=== PATIENT | male | born 1950 | race Caucasian/White ===

== ENCOUNTER 2017-09-29 02:00 | Emergency (ER) | payer MEDICARE, OTHER, SELFPAY ==
[2017-09-29 02:07] VITALS: BP 132/66; PULSE 65; RESP 20; TEMP 37; O2SAT 98
[2017-09-29 02:19] VITALS: RESP 20
--- NOTE | 2017-09-29 02:23 | ED.GENADUL ---
Disposition Clinical Impression: Sting from hornet, wasp, or bee Disposition: HOME Condition: Good Instructions: Insect Bite or Sting (ED), Diphenhydramine (By mouth) Additional Instructions: You may use diphenhydramine 1-2 tablets every 6 hours as needed for itching. Ice will help with swelling. Tylenol if needed for discomfort. Anti-itch topical is fine to use as well. Watch for signs of infection which will include increasing pain, redness, warmth. Also watch for signs of systemic allergic reaction but that is unlikely to occur at this time. Follow-up with primary care next week if not better. Return to ED if worse. Referrals: Frederick Meade [Primary Care Provider] - Medical Decision Making - Medical Decision Making Patient with localized allergic reaction to bee stings. There is no evidence of systemic involvement. He does not need epinephrine or steroids in my opinion at this point. Benadryl, topical anti-itch, ice, Tylenol if needed should be enough. Symptoms should resolve over the next 1 or 2 days. Watch for evidence of infection which we discussed. He is given 25 of Benadryl here and 25 to go home with which he may take an one hour if there has been no relief with the first dose. History of Present Illness - General Chief complaint: GenMedical Stated complaint: BEE STINGS Time Seen by Provider: 09/29/17 02:22 Source: patient Mode of arrival: ambulatory Limitations: no limitations - History of Present Illness Initial comments: Patient presents with multiple itchy bee stings after being attacked by ground hornets approximately 14 hours ago. Patient was mowing his lawn when he hit a ground hornet nest. He was stung multiple times in the legs and back. Initially they were burning and painful. They subsequently become itchy and he has not been able to sleep. He has no rash per se. He does have local redness and swelling in the areas of the stings especially on the back. He has no respiratory difficulty. He has no GI symptoms. He does not feel lightheaded or dizzy. - Related Data Aspirin 81 mg PO DAILY tab-cap 06/24/12 Blood-Glucose Meter [Onetouch Ultramini] 1 each MC DAILY #1 kit 07/31/16 Lisinopril/Hydrochlorothiazide [Lisinopril-Hctz 20-12.5 mg Tab] 1 each PO DAILY #90 tab-cap 04/19/17 Colchicine 0.6 mg PO Q12H PRN #20 tab 06/15/17 Allopurinol 200 mg PO DAILY #180 tab-cap 07/06/17 Lancets [Onetouch Suresoft] 1 each ID DAILY #100 each 07/06/17 Onetouch Ultra Test Strips 1 strip MC D #100 strip 07/06/17 DiphenhydrAMINE [Benadryl] 25 - 50 mg PO Q6H PRN cap 09/29/17 Allergies Allergy/AdvReac Type Severity Reaction Status Date / Time No Known Allergies Allergy Unverified 09/29/17 02:12 Review of Systems Constitutional: denies: chills, fever Respiratory: denies: shortness of breath, wheezing Cardiovascular: denies: chest pain, syncope Gastrointestinal: denies: abdominal pain, nausea, vomiting, diarrhea Musculoskeletal: denies: arthralgia Skin: other (stings/welts) Neurological: denies: headache, weakness, numbness Past Medical History - Past Medical History Medical history: cancer (prostate), diabetes, GERD, hypertension Anemia, gout, hiatel hernia, diverticulosis Surgical history: appendectomy, other (radiation, cataract) - Social History Smoking status: former smoker Alcohol use: occasionally Drug use: none General Exam - General Limitations: no limitations General appearance: alert, in no apparent distress - Head Head exam: Present: atraumatic, normocephalic - ENT ENT exam: Present: normal orophraynx - Respiratory Respiratory exam: Present: normal lung sounds bilaterally. Absent: wheezes - Cardiovascular Cardiovascular Exam: Present: regular rate, normal rhythm, normal heart sounds - Neurological Exam Neurological exam: Present: alert, oriented X3, CN II-XII intact. Absent: motor sensory deficit - Skin Skin exam: Present: warm, dry, intact, other (Areas of erythema and swelling with some local edema on the back and legs in relation to the stings. Couple of areas on the right back are 3-4 cm in size. ) Course Vital Signs - 24 hr 09/29/17 09/29/17 02:07 02:19 Temperature 98.6 F Pulse 65 Respiratory 20 20 Rate Blood Pressure 132/66 Pulse Oximetry 98
[2017-09-29] MEDS: diphenhydrAMINE 25 MG CAP PO ×2 (02:39→02:40)
== END 2017-09-29 02:50 | disposition home or self-care (01) ==
PROVIDERS: Emergency Provider Emergency Medicine; PCP Family Medicine
DX: T63.451A Toxic effect of venom of hornets, accidental (unintentional), initial encounter (principal); L29.8 Other pruritus; L53.9 Erythematous condition, unspecified; R60.0 Localized edema; E11.9 Type 2 diabetes mellitus without complications; I10 Essential (primary) hypertension
CPT/HCPCS: 99283 ×2

== ENCOUNTER 2017-11-22 01:48 | Outpatient (CLI) | payer MEDICARE, OTHER, SELFPAY ==
[2017-11-23 10:05] LABS: PSA, Diagnostic <0.1 ng/ml (0-4.5)
[2017-11-24 17:01] LABS: Testosterone, Total 207 ng/dL (240-950)
== END 2017-11-22 02:08 ==
PROVIDERS: PCP Family Medicine; Visit Provider Nurse Practitioner
DX: C61 Malignant neoplasm of prostate (principal)
CPT/HCPCS: 36415; 84403; 84153

== ENCOUNTER 2018-01-09 01:38 | Outpatient (CLI) | payer MEDICARE, OTHER, SELFPAY ==
[2018-01-09 08:52] LABS: Hemoglobin A1C 6.2 % (4.5-6.2)
[2018-01-09 09:16] LABS: Uric Acid 5.4 mg/dL (3.5-7.2)
== END 2018-01-09 01:58 ==
PROVIDERS: PCP Family Medicine; Visit Provider Family Medicine
DX: E11.9 Type 2 diabetes mellitus without complications (principal); E79.0 Hyperuricemia without signs of inflammatory arthritis and tophaceous disease
CPT/HCPCS: 36415; 83036; 84550

== ENCOUNTER 2018-07-10 10:00 | Outpatient (CLI) | payer MEDICARE, OTHER, SELFPAY ==
[2018-07-10 10:33] LABS: HCT 26.6 % (40.0-50.0); HGB 7.5 g/dL (13.5-17.5); Mean Corp. HGB Concentration 28.2 g/dL (32.0-36.0); Mean Corpuscular Hemoglobin 21.7 pg (27.0-33.0); Mean Corpuscular Volume 76.9 fL (80-95); Mean Platelet Volume 9.6 fL (8.0-11.0); Platelet Count 358 x1000/uL (130-400); RBC 3.46 m/cumm (4.50-6.00); White Blood Cell Count 6.75 k/cumm (4.4-10.8)
[2018-07-10 10:36] LABS: Hemoglobin A1C 7.3 % (4.5-6.2)
[2018-07-10 11:03] LABS: CREATININE 1.19 mg/dL (0.70-1.30); Potassium 3.9 mmol/L (3.5-5.1)
[2018-07-10 15:26] LABS: Uric Acid 5.7 mg/dL (3.5-7.2)
== END 2018-07-10 10:20 ==
PROVIDERS: PCP Family Medicine; Visit Provider Family Medicine
DX: E11.9 Type 2 diabetes mellitus without complications (principal); D64.9 Anemia, unspecified; I10 Essential (primary) hypertension; E79.0 Hyperuricemia without signs of inflammatory arthritis and tophaceous disease
CPT/HCPCS: 85027; 82565; 83036; 84132; 84550

== ENCOUNTER 2018-07-16 09:14 | Outpatient (CLI) | payer MEDICARE, OTHER, SELFPAY ==
[2018-07-16 11:08] LABS: HCT 28.5 % (40.0-50.0); Mean Corp. HGB Concentration 28.1 g/dL (32.0-36.0); Mean Corpuscular Hemoglobin 21.6 pg (27.0-33.0); Mean Corpuscular Volume 76.8 fL (80-95); Mean Platelet Volume 10.2 fL (8.0-11.0); Platelet Count 346 x1000/uL (130-400); RBC 3.71 m/cumm (4.50-6.00); RBC Distribution Width 17.5 % (11.8-14.1)
[2018-07-16 11:15] LABS: Iron 22 ug/dL (50-175); Total Iron Binding Capacity 356 ug/dL (250-450)
[2018-07-16 11:36] LABS: Ferritin 7 ng/mL (8-388)
[2018-07-16 11:49] LABS: Uric Acid 5.5 mg/dL (3.5-7.2)
== END 2018-07-16 09:34 ==
PROVIDERS: PCP Family Medicine; Visit Provider Family Medicine
DX: D64.9 Anemia, unspecified (principal); I10 Essential (primary) hypertension; M10.9 Gout, unspecified
CPT/HCPCS: 36415; 85027; 82728; 83540; 83550; 84550

== ENCOUNTER 2018-08-14 01:17 | Outpatient (CLI) | payer MEDICARE, OTHER, SELFPAY ==
[2018-08-15 12:19] LABS: PSA, Diagnostic <0.1 ng/ml (0-6.5)
[2018-08-16 13:59] LABS: Testosterone, Total 248 ng/dL (240-950)
== END 2018-08-14 01:37 ==
PROVIDERS: PCP Family Medicine; Visit Provider Nurse Practitioner
DX: C61 Malignant neoplasm of prostate (principal)
CPT/HCPCS: 36415; 84403; 84153

== ENCOUNTER 2018-09-17 01:34 | Outpatient (CLI) | payer MEDICARE, OTHER, SELFPAY ==
[2018-09-17 08:41] LABS: HCT 34.7 % (40.0-50.0); Mean Corp. HGB Concentration 31.7 g/dL (32.0-36.0); Mean Corpuscular Hemoglobin 27.2 pg (27.0-33.0); Mean Corpuscular Volume 85.7 fL (80-95); Mean Platelet Volume 9.6 fL (8.0-11.0); Platelet Count 274 x1000/uL (130-400); RBC 4.05 m/cumm (4.50-6.00); RBC Distribution Width 22.7 % (11.8-14.1); White Blood Cell Count 8.21 k/cumm (4.4-10.8)
[2018-09-17 10:06] LABS: Iron 42 ug/dL (50-175)
[2018-09-17 10:17] LABS: Ferritin 33 ng/mL (8-388)
== END 2018-09-17 01:54 ==
PROVIDERS: PCP Family Medicine; Visit Provider Family Medicine
DX: D64.9 Anemia, unspecified (principal)
CPT/HCPCS: 36415; 85027; 82728; 83540

== ENCOUNTER 2019-02-28 08:10 | Outpatient (CLI) | payer MEDICARE, OTHER, SELFPAY ==
[2019-02-28 09:48] LABS: Hemoglobin A1C 6.6 % (3.8-5.6)
[2019-02-28 10:12] LABS: Iron 58 ug/dL (65-175)
[2019-02-28 10:27] LABS: Ferritin 38 ng/mL (26-388)
[2019-02-28 13:34] LABS: HCT 37.6 % (40.0-50.0); HGB 12.4 g/dL (13.5-17.5); Mean Corpuscular Hemoglobin 31.6 pg (27.0-33.0); Mean Corpuscular Volume 95.9 fL (80-95); Mean Platelet Volume 10.5 fL (8.0-11.0); Platelet Count 285 x1000/uL (130-400); RBC 3.92 m/cumm (4.50-6.00); RBC Distribution Width 13.7 % (11.8-14.1); White Blood Cell Count 7.22 k/cumm (4.4-10.8)
== END 2019-02-28 08:30 ==
PROVIDERS: PCP Family Medicine; Visit Provider Family Medicine
DX: D64.9 Anemia, unspecified (principal); R73.9 Hyperglycemia, unspecified
CPT/HCPCS: 36415; 85027; 82728; 83036; 83540

== ENCOUNTER 2019-03-10 01:13 | Outpatient (CLI) | payer MEDICARE, OTHER, SELFPAY ==
[2019-03-10 09:18] LABS: HCT 37.9 % (40.0-50.0); HGB 12.4 g/dL (13.5-17.5); Mean Corp. HGB Concentration 32.7 g/dL (32.0-36.0); Mean Corpuscular Hemoglobin 31.2 pg (27.0-33.0); Mean Corpuscular Volume 95.5 fL (80-95); Mean Platelet Volume 9.5 fL (8.0-11.0); Platelet Count 265 x1000/uL (130-400); RBC 3.97 m/cumm (4.50-6.00); RBC Distribution Width 13.5 % (11.8-14.1); White Blood Cell Count 6.41 k/cumm (4.4-10.8)
[2019-03-10 10:00] LABS: Calculated LDL 97 mg/dL; Cholesterol 149 mg/dL (<200); HDL Cholesterol 33 mg/dL (40-60); Triglyceride 97 mg/dL (<150)
[2019-03-11 11:00] LABS: PSA, Diagnostic <0.1 ng/mL (0.0-6.5)
[2019-03-12 06:14] LABS: Testosterone, Total 267 ng/dL (240-950)
== END 2019-03-10 01:33 ==
PROVIDERS: PCP Family Medicine; Visit Provider Nurse Practitioner
DX: C61 Malignant neoplasm of prostate (principal); D64.9 Anemia, unspecified; E78.5 Hyperlipidemia, unspecified
CPT/HCPCS: 36415; 80061; 84403; 85027; 84153

== ENCOUNTER 2019-09-02 04:55 | Outpatient (CLI) | payer MEDICARE, OTHER, SELFPAY ==
[2019-09-02 10:45] LABS: HCT 36.8 % (40.0-50.0); HGB 12.4 g/dL (13.5-17.5); Mean Corp. HGB Concentration 33.7 g/dL (32.0-36.0); Mean Corpuscular Hemoglobin 31.2 pg (27.0-33.0); Mean Corpuscular Volume 92.7 fL (80-95); Mean Platelet Volume 9.3 fL (8.0-11.0); Platelet Count 269 x1000/uL (130-400); RBC 3.97 m/cumm (4.50-6.00); RBC Distribution Width 13.7 % (11.8-14.1); White Blood Cell Count 7.07 k/cumm (4.4-10.8)
[2019-09-02 11:07] LABS: Hemoglobin A1C 6.5 % (3.8-5.6)
[2019-09-02 11:46] LABS: CREATININE 1.12 mg/dL (0.70-1.30); Uric Acid 6.2 mg/dL (3.5-7.2)
[2019-09-02 13:11] LABS: Ferritin 62 ng/mL (26-388)
== END 2019-09-02 05:15 ==
PROVIDERS: PCP Family Medicine; Visit Provider Family Medicine
DX: I10 Essential (primary) hypertension (principal); R73.9 Hyperglycemia, unspecified; D64.9 Anemia, unspecified; M10.9 Gout, unspecified
CPT/HCPCS: 36415; 85027; 82565; 82728; 83036; 84132; 84550

== ENCOUNTER 2020-03-05 02:23 | Outpatient (CLI) | payer MEDICARE, SELFPAY ==
[2020-03-05 08:21] LABS: Hemoglobin A1C 6.7 % (<5.7)
[2020-03-05 10:50] LABS: Calculated LDL 99 mg/dL (<100); Cholesterol 155 mg/dL (<200); Ferritin 52 ng/mL (26-388); HDL Cholesterol 33 mg/dL (40-60); Triglyceride 116 mg/dL (<150)
[2020-03-05 10:51] LABS: Iron 77 ug/dL (65-175)
[2020-03-06 00:04] LABS: PSA, Screening <0.1 ng/mL (0.0-6.5)
== END 2020-03-05 02:43 ==
PROVIDERS: PCP Family Medicine; Visit Provider Family Medicine
DX: D64.9 Anemia, unspecified (principal); E78.5 Hyperlipidemia, unspecified; E73.9 Lactose intolerance, unspecified; Z12.5 Encounter for screening for malignant neoplasm of prostate
CPT/HCPCS: 36415; 80061; 84153; 82728; 83036; 83540

== ENCOUNTER 2020-09-03 03:40 | Outpatient (CLI) | payer MEDICARE, SELFPAY ==
[2020-09-03 09:32] LABS: Hemoglobin A1C 6.8 % (<5.7)
[2020-09-03 18:03] LABS: Iron 95 ug/dL (65-175)
== END 2020-09-03 03:41 | disposition home or self-care (01) ==
LOC: LBO 03:41
PROVIDERS: PCP Family Medicine; Visit Provider Family Medicine
DX: D64.9 Anemia, unspecified (principal); R73.9 Hyperglycemia, unspecified
CPT/HCPCS: 36415; 83036; 83540

== ENCOUNTER 2021-03-11 01:59 | Outpatient (CLI) | payer MEDICARE, SELFPAY ==
[2021-03-11 12:43] LABS: HCT 35.5 % (40.0-50.0); HGB 11.6 g/dL (13.5-17.5); MCHC 32.7 % (32.0-36.0); MCV 94.9 fL (80-95); MPV 9.6 fL (8.0-11.0); Platelet Count 242 10^3/uL (130-400); RBC 3.74 10^6/uL (4.36-5.78); RDW 13.4 % (11.8-14.1); RDW-SD 46.7 fL; WBC 8.11 10^3/uL (4.4-10.8)
[2021-03-11 13:05] LABS: Hemoglobin A1C 7.1 % (<5.7)
[2021-03-11 13:39] LABS: Calculated LDL 87 mg/dL (<100); Cholesterol 165 mg/dL (<200); HDL Cholesterol 32 mg/dL (40-60); Triglyceride 233 mg/dL (<150)
[2021-03-11 21:57] LABS: PSA, Diagnostic <0.1 ng/mL (0.0-6.5)
[2021-03-16 11:27] LABS: Lab Add On Test DONE
[2021-03-16 11:41] LABS: CREATININE 1.2 mg/dL (0.70-1.30); Estimated GFR 59.51 (mL/min/1.73m2); Potassium 3.8 mmol/L (3.5-5.1)
== END 2021-03-11 02:00 | disposition home or self-care (01) ==
LOC: LBO 01:59
PROVIDERS: PCP Family Medicine; Visit Provider Family Medicine
DX: I10 Essential (primary) hypertension (principal); E78.5 Hyperlipidemia, unspecified; R73.9 Hyperglycemia, unspecified; R53.83 Other fatigue; C61 Malignant neoplasm of prostate
CPT/HCPCS: 36415; 80061; 85027; 82565; 83036; 84132; 84153

== ENCOUNTER 2021-09-07 11:09 | Outpatient (REF) | payer MEDICARE, SELFPAY ==
[2021-09-07 13:42] LABS: COMMENT (LAB VIEW ONLY) 53.99 mg/dL; Microalb ug/mg Crea 8.1 ug/mg Cr
== END 2021-09-07 11:10 | disposition home or self-care (01) ==
LOC: LBN 11:09
PROVIDERS: PCP Family Medicine; Visit Provider Family Medicine
DX: E11.9 Type 2 diabetes mellitus without complications (principal)
CPT/HCPCS: 82043; 82570

== ENCOUNTER 2022-03-20 02:53 | Outpatient (CLI) | payer MEDICARE, SELFPAY ==
[2022-03-20 13:00] LABS: CREATININE 1.3 mg/dL (0.70-1.30); Calculated LDL 85 mg/dL (<100); Cholesterol 151 mg/dL (<200); Estimated GFR 58.01 (mL/min/1.73m2); HDL Cholesterol 37 mg/dL (40-60); Potassium 3.6 mmol/L (3.5-5.1); Triglyceride 145 mg/dL (<150)
== END 2022-03-20 02:54 | disposition home or self-care (01) ==
LOC: LOS 02:53
PROVIDERS: PCP Family Medicine; Visit Provider Family Medicine
DX: E78.5 Hyperlipidemia, unspecified (principal); I10 Essential (primary) hypertension
CPT/HCPCS: 36415; 80061; 82565; 84132

== ENCOUNTER 2022-03-22 09:41 | Outpatient (CLI) | payer MEDICARE, SELFPAY ==
[2022-03-22 12:34] LABS: HCT 38.6 % (40.0-50.0); HGB 12.4 g/dL (13.5-17.5); MCH 30.8 pg (27.0-33.0); MCHC 32.1 % (32.0-36.0); MCV 96 fL (80-95); MPV 10.7 fL (8.0-11.0); Platelet Count 243 10^3/uL (130-400); RBC 4.02 10^6/uL (4.36-5.78); RDW 14.3 % (11.8-14.1); RDW-SD 50.5 fL; WBC 7.71 10^3/uL (4.4-10.8)
[2022-03-22 23:08] LABS: PSA, Diagnostic <0.1 ng/mL (<=6.5)
== END 2022-03-22 09:42 | disposition home or self-care (01) ==
LOC: LOS 09:41
PROVIDERS: PCP Family Medicine; Referring Provider Family Medicine; Visit Provider Family Medicine
DX: R53.83 Other fatigue (principal); C61 Malignant neoplasm of prostate
CPT/HCPCS: 36415; 85027; 84153

== ENCOUNTER 2022-03-22 13:45 | Outpatient (REF) | payer MEDICARE, SELFPAY ==
[2022-03-22 13:38] LABS: COMMENT (LAB VIEW ONLY) 37.91 mg/dL; Microalb ug/mg Crea 4.7 ug/mg Cr
== END 2022-03-22 13:46 | disposition home or self-care (01) ==
LOC: LBN 13:45
PROVIDERS: PCP Family Medicine; Visit Provider Family Medicine
DX: E11.9 Type 2 diabetes mellitus without complications (principal)
CPT/HCPCS: 82043; 82570

== ENCOUNTER 2022-09-21 18:16 | Emergency (ER) | payer MEDICARE, SELFPAY ==
[2022-09-21] VITALS (42 sets, daily range): BP systolic 129–165; BP diastolic 59–92; PULSE 70–92; RESP 7–22; TEMP 36.9; O2SAT 92–97
--- NOTE | 2022-09-21 18:30 | DI.CT_ITS ---
Exam(s) CT NECK W EXAM: CT NECK W INDICATION: facial/oral swelling. COMPARISON: CT CT HEAD WO from 09/21/2022 TECHNIQUE: FINDINGS: VISUALIZED PARANASAL SINUSES: Unremarkable. NASOPHARYNX: Relatively symmetrical swelling of the tissues. ORODENTAL: Asymmetric appearance of both sides of the tongue, right denser than left. Lingual tonsil s also enlarged bilaterally OROPHARYNX: Enlarged tonsils. Abnormal swelling of the retropharyngeal tissues is evident. See belo w. There is tissue swelling in the vallecular by. Free edge of the epiglottis appears unremarkable. HYPOPHARYNX/RETROPHARYNGEAL: Abnormal. There is prominent swelling of the retropharyngeal space and there is relatively hypodense ovoid predominately right but extending slightly across the midline per ipherally enhancing structure which measures 4 cm wide by 1.5 cm maximum AP by 3 cm cephalocaudal, no t containing gas but with surrounding retropharyngeal edema.. Edema extends down to the lower C5 lev el as well as above this C2 level abscess or mass. Infection versus malignancy. No radiopaque forei gn body evident in this region.. The aryepiglottic folds appear unremarkable as do the vocal cords VOCAL CORDS: Unremarkable. Also the subglottic airway appears unremarkable. THYROID GLAND: Abnormal. There nodules in the right lobe, 1 being taller than wider in the transvers e plane measuring 2.2 cm AP x 1.5 cm wide. Should undergo ultrasound. SALIVARY GLANDS: Multiple enlarged lymph nodes noted in both parotid glands. Submandibular glands ap pear unremarkable. LYMPH NODES: There is prominent adenopathy throughout both sides of the neck and including the suprac lavicular regions bilaterally. On the right side of the neck medial to the posterior aspect of the s ternocleidomastoid muscle and just behind the largest abnormal lymph node (which measures 2.3 by 2.5 cm) there are multiple centrally hypodense densities which have similar appearance of the retropharyn geal abnormality and either represent extension of abscess or neoplasm. One of these which measures 1.3 cm AP x 1 cm wide is located quite posteriorly on the right side of the neck. OTHER: Heavily calcified plaque noted at the carotid bifurcations and proximal internal carotid arter ies bilaterally. Estimate moderate stenosis at these levels. No evidence of jugular vein thrombosis . VISUALIZED LUNG APICES: No significant findings. IMPRESSION: 1. As described above there is a large predominately right-sided peripherally enhancing mass or absc ess in the retropharyngeal space with abundant surrounding edema down to C5 level and with multiple a bnormally enlarged lymph nodes on both sides the neck, some of these being centrally hypodense and morillo ving similar appearance to the abnormal retropharyngeal finding. Main differential diagnosis here is neoplasm versus abscess. 2. There are enlarged bilateral lingual tonsils also noted as well as significant asymmetry in the a ppearance of both sides of the tongue. 3. 2.2 x 1.5 cm right thyroid lobe nodule which is taller than wider in the transverse plane and the refore should also undergo investigation with ultrasound. 4. ENT consultation recommended. Study 1st read by [facility]. Discussed by myself with ER staff 09/22/2022 9:10 a.m.. Patient was apparently transfered last night to outside institution. RADIATION DOSE DELIVERED: Total DLP DATA REPOSITORY: All CT scans at this facility are submitted to the National Radiology Data Registry (NRDR) Dose Index Registry (DIR) with the [employer] ([employer]). RADIATION OPTIMIZATION: All CT scans at this facility use at least one of these dose optimization te chniques: automated exposure control; mA and/or kV adjustment per patient size (includes targeted exa ms where dose is matched to clinical indication); or iterative reconstruction.
--- NOTE | 2022-09-21 18:41 | DI.CT_ITS ---
Exam(s) CT HEAD WO EXAM: CT HEAD WO CLINICAL HISTORY: tongue swelling. TECHNIQUE: Imaging Protocol: Axial computed tomography images with coronal and sagittal reformatted images were created and reviewed COMPARISON: CT HEAD WITHOUT CONTRAST from 04/19/2015 FINDINGS: There are no skull fractures. There is no fluid in the visualized paranasal sinuses. Incidentally noted is a in posterior right scalp lipoma measuring 2.5 cm wide 1.3 cm AP by 2.5 cm cep halocaudal, this over the right occipital area. There is no evidence of intracranial hemorrhage, mass effect, or shift of midline structures. There are no extra-axial fluid collections. The ventricles are not enlarged or shifted and there is no blo od within the ventricular system nor within the basal cisterns. IMPRESSION: No acute intracranial findings on this noninfused CT scan of the brain. Right occipital area scalp lipoma with measurements as above. RADIATION DOSE DELIVERED: 943.56 mGy.cm Total DLP DATA REPOSITORY: All CT scans at this facility are submitted to the National Radiology Data Registry (NRDR) Dose Index Registry (DIR) with the [employer] ([employer]). RADIATION OPTIMIZATION: All CT scans at this facility use at least one of these dose optimization te chniques: automated exposure control; mA and/or kV adjustment per patient size (includes targeted exa ms where dose is matched to clinical indication); or iterative reconstruction.
--- NOTE | 2022-09-21 18:44 | W.ED.GENAD ---
Discharge Plan Discharge Details Chief Complaint: GenMedical Primary Care Provider: Frederick Meade ED Provider: Lee Ann Lucero Home Meds and New Rx's Prescriptions: No Action All Day Allergy (cetirizine) 10 mg capsule 10 mg PO DAILY PRN ferrous sulfate [Feosol] 325 mg (65 mg iron) tablet See Rx Instructions PO DAILY Rx Instructions: 650 mg PO daily; lisinopril-hydrochlorothiazide 20-12.5 mg tablet 1 tab PO DAILY Qty: 90 3RF aspirin [Aspirin Low-Strength] 81 MG tablet,chewable 81 mg PO DAILY (DME) blood-glucose meter [[employer] UltraMini] 1 EACH kit 1 ea Miscellaneous DAILY Qty: 1 allopurinol 100 mg tablet 200 mg PO DAILY Qty: 180 3RF (DME) blood sugar diagnostic Strip See Dose Instructions .ROUTE .MEDSUPPLY Qty: 100 3RF Dose Instruction: As directed Rx Instructions: test daily (DME) lancets Misc 1 ea Intradermal DAILY Qty: 100 3RF Rx Instructions: test daily Medical Decision Making This is a 72-year-old male who is on lisinopril for hypertension who presents with intermittent swelling of the tongue cheek and throat for 1 week. He has been seen twice this week initially he was seen and told that he has a URI. His symptoms have waxed and waned until today when they got significantly worse with a notable change in his phonation. My plan will be to treat him with diphenhydramine and Solu-Medrol and Pepcid although if this is lisinopril induced that will not be very effective. If it is worse we will consider giving FFP. I will obtain a CT of the head face and neck to rule out abscess but given that he is edentulous and there is no evidence of dental infection this is unlikely to be the etiology. He will most likely require admission but we will wait for the CT result. He will definitely need admission for observation and further evaluation. After consultation with Dr. Ramírez I have prescribed Unasyn Differential Diagnosis Differential Diagnosis: Lisinopril angioedema. Soft tissue infection, carcinoma, Medical Records Medical records narrative: Distant history of prostate cancer with undetectable PSA. We will send a secondary PSA Imaging Data Radiologic Study: Imaging: CT Scan (Noncontrast) Radiologist's impression: No acute intracranial abnormality. Radiologic Study #2: Radiologist's impression: Multiple enlarged lymph nodes as described largest in the retropharyngeal space. Necrotic malignancy favored over suppurative lymph nodes. Retropharyngeal edema versus developing collection at C3-C5. Enlarged lingual tonsils greater on the left. Underlying lesion not excluded.. 2 cm hypodense nodule of the right lobe of the thyroid. Comparison to prior images would be helpful. Otherwise nonemergent sonography of the thyroid gland may be helpful if not already performed. Lab Data Lab results reviewed: Yes I reviewed the patient's lab results. HPI General Date/Time Provider Initiated Documentation: 09/21/22 18:25. Information obtained by: family (). History of Present Illness described as moderate, Quality is described as aching, HPI Narrative: The patient is a 72-year-old male on lisinopril for hypertension, who presents with tongue and throat swelling. The patient has had intermittent symptoms which have been not as severe over the past week. He was seen earlier in the week and was told he had a URI. Today the symptoms got worse including swelling of his tongue and throat with change of his voice. He went to urgent care and was referred here for evaluation of a possible abscess. He denies any fevers or chills. He wears dentures. He denies any previous history of allergic reactions or angioedema. He does note a change in his voice. He states that his symptoms have come and gone over the past week. Today his symptoms were the worst. He states he has shortness of breath when talking but has been able to eat and drink and has been able to handle secretions. He denies any recent dental procedures swelling of the gums. He wears dentures, both the upper and lower. He is also complaining some mild pain in the right posterior neck. Most of the symptoms are right-sided. They have been coming and going over the past week and were today. Related Data Home Medications Medication Instructions Recorded Confirmed aspirin 81 mg chewable tablet 81 mg PO DAILY 06/24/12 09/21/22 (Aspirin Low-Strength) blood-glucose meter ([employer] ##1 07/31/16 09/15/22 UltraMini kit) cetirizine 10 mg capsule (All Day 10 mg PO DAILY PRN 01/16/18 09/21/22 Allergy (cetirizine)) ferrous sulfate 325 mg (65 mg See Rx Instructions PO DAILY 03/12/20 09/21/22 iron) tablet (Feosol) lisinopril 20 1 tab PO DAILY #90 tab-caps 03/22/22 09/21/22 mg-hydrochlorothiazide 12.5 mg tablet allopurinol 100 mg tablet 200 mg PO DAILY #180 tab-caps 06/14/22 09/21/22 blood sugar diagnostic #100 ea 07/10/22 09/15/22 lancets #100 ea 07/10/22 09/15/22 Previous Rx's Medication Instructions Recorded lisinopril 20 1 tab PO DAILY #90 tab-caps 03/22/22 mg-hydrochlorothiazide 12.5 mg tablet allopurinol 100 mg tablet 200 mg PO DAILY #180 tab-caps 06/14/22 blood sugar diagnostic #100 ea 07/10/22 lancets #100 ea 07/10/22 Allergies Allergy/AdvReac Type Severity Reaction Status Date / Time No Known Allergies Allergy Verified 09/21/22 18:22 General Stated Complaint: GenMedical BENJI: 3 Review of Systems Narrative: see hpi Constitutional Constitutional: Reports as per HPI, Denies chills and Denies fever(s) Eyes Eyes: Denies change in vision, Denies loss of vision and Denies other visual disturbances ENT Ears, Nose, Mouth, and Throat: Denies dysphagia, Denies dizziness, Reports hoarseness, Denies lip swelling, Denies nasal congestion, Denies nasal discharge, Reports neck pain, Reports throat swelling and Reports tongue swelling Comments: Swelling of the right side of the tongue and cheek and subjective feeling of swelling in the right side of the throat and neck Cardiovascular Cardiovascular: Denies chest pain Respiratory Comments: The patient endorses some shortness of breath with speaking Gastrointestinal Gastrointestinal: Denies abdominal pain and Denies dysphagia Musculoskeletal Musculoskeletal: Reports neck pain Neurologic Neurologic: Denies dizziness and Denies loss of vision Allergic/Immunologic Allergic/Immunologic: Denies lip swelling, Reports throat swelling and Reports tongue swelling PFSH All Active Problems Actinic keratosis (Acute) Diabetes mellitus (Chronic 07/03/12) BS deterioration due to dietary indiscretion Essential hypertension (Acute 12/27/12) Overweight (Acute) regular exercise/dietary discretion advised Fracture of phalanx of finger (Acute) SOBOE (shortness of breath on exertion) (Acute) likely due to reduced 02 carrying capacity due to anemia Prostate cancer (Acute 10/05/14) 2014 radiation RX/lupron Polyp of colon (Acute) tiny rectal hyperplastic polyp Nystagmus (Acute) History of tobacco use (Acute) Gout (Acute 12/24/07) Diverticulosis of colon without diverticulitis (Acute) Cataract (Acute 07/03/12) Anemia (Acute) EGD-HH, ESOPH INFLAMMATION; 11/25 COLO-DIVERTICULOSIS, TINY RECTAL POLYP c-scope 2012: hyperpl. polyp Family History Mother , AGE 38 Alcohol abuse Father , AGE 76 Diabetes Sister Diabetes Maternal Grandfather , age 80 Stroke Maternal Grandmother , age 88 Diabetes Social History Smoking/Tobacco Use Status: Former Tobacco Use Quit Date: 02/20/84 Smokeless tobacco user: chewing tobacco (former use) Second Hand Exposure: No Smoking risk assessment performed?: Yes Alcohol Intake: current Alcohol Intake frequency: a few times a month Alcohol type: beer Drug use: Never Substance use type: does not use Caregiver/Support person: No Household members: spouse Housing: apartment Communication Needs: Corrective Lenses Do you need help understanding health information?: Never Pets and animals: No Sexually active: No Do you think of yourself as: straight/heterosexual Current gender identity: male What is your relationship status?: How often do you talk on the phone with friends or family?: three or more times per week How often do you get together with friends or relatives?: three or more times per week How often do you attend rastafari or pentecostalism services?: 1-3 times per year Do you belong to any clubs or organized social groups?: yes Panel score (0-1 are the most socially isolated patients): 3 What type of physical activity do you participate in: walking and bicycling Duration: 60-90 minutes/day Frequency: 3-4 times per week Lily/Restorationism: Confucianism Special lily needs: No Seatbelt use: always Helmet use: Yes Helmet use: always Drive intox or ride w/intox transit bus driver: No Do you feel safe in your relationship?: Yes Exam Narrative Exam Narrative: The patient is well-developed well-nourished male who is alert and oriented. He does not appear in acute distress. He does have a slighthot potato voice. He is handling secretions Const General: cooperative, healthy appearing, comfortable, no acute distress, well developed, well groomed and well hydrated Nutritional Appearance: average body habitus and well nourished Orientation: alert, awake and oriented x3 HENMT Head: normal to inspection, normocephalic and atraumatic Ears: hearing grossly normal bilaterally and external ears normal General nose exam: external nose normal, nares normal and no nasal discharge Face and sinus: sinuses nontender and other (There does appear to be mild swelling of the right lower cheek. No erythem) Mouth: moist mucous membranes and other (Normal phonation. The patient is handling secretions.) Throat: uvula midline Other: The patient is wearing dentures which were removed. There is no evidence of buccal cellulitis. There is no evidence of Bettina's angina. There is swelling of the right tongue and cheek and slight swelling of the right posterior pharynx. Eyes General: appearance normal, both eyes and all related structures Eyelids: eyelids normal Conjunctivae: conjunctivae normal Sclera: sclerae normal Cornea: corneas normal Pupils: PERRL EOM: EOM intact bilaterally and No nystagmus Neck Neck: normal visual inspection, full ROM, no lymphadenopathy, no meningeal signs, trachea midline and supple Lymphatic: no lymphadenopathy noted Other: There is some swelling of the right posterior neck in the area of the posterior cervical chain, consistent with 2 large firm posterior cervical lymph nodes each measuring 1 to 2 cm and from. There does appear to be some swelling and tenderness in the area but no fluctuance or warmth. No rashes. No cricoid tenderness trachea is midline Chest Chest: normal inspection of the chest Resp Effort & Inspection: normal respiratory effort, able to speak in complete sentences, normal respiratory pattern, no audible wheezes, not labored, no nasal flaring, no pursed lip breathing, no respiratory distress, no retractions, no stridor, not tachypneic, no tracheal deviation, no use of accessory muscles, No prolonged expiratory phase and other (Normal inspiratory to expiratory ratio.) Auscultation: clear to auscultation bilaterally, no rales, no rhonchi, no wheezes and no rubs Tactile Fremitus: tactile fremitus absent Cardio Jugular venous pressure: no JVD Palpation: normal PMI Rate: regular rate Rhythm: regular rhythm Heart Sounds: S1 normal, S2 normal, no gallops, no murmurs and no rubs GI Inspection: normal to inspection and non-distended Palpation: soft, no hepatosplenomegaly, no guarding and nontender Percussion: normal to percussion Auscultation: normal bowel sounds General: No CVA tenderness Back/Spine/Pelvis Back: no CVA tenderness and No back tenderness Cervical Spine: normal cervical lordosis, cervical ROM normal, No cervical muscular tenderness, No pain with cervical ROM, No cervical spinal tenderness and No step off deformity Thoracic/Lumbar Spine: thoracic and lumbar spine normal to inspection, No thoracic spinal tenderness and No lumbar spinal tenderness Pelvis: no pain with anterior-posterior compression and no pain with lateral compression Skin General skin exam: no rashes or lesions noted, turgor normal, no petechiae, no purpura and other (Skin is normal for ethnicity.) Lesions: no lesions Rashes: no rashes Trauma: no lacerations or abrasions Neuro General: patient alert, patient awake, patient oriented x3, moves all extremities, no meningeal signs, no focal motor deficits and CN's II-XI intact bilaterally Cranial Nerves: CN's II-XI intact bilaterally, PERRL, accommodation normal, EOM intact bilaterally, no nystagmus, facial strength normal, tongue midline, hearing normal and no nystagmus Cognition: normal cognition Speech: speech normal Motor: muscle tone normal throughout and strength 5/5 throughout Sensory Exam: no sensory deficits noted Other: Reflexes are 1-2+ and symmetric in his bicep brachioradialis patellar and ankle jerks. No Babinski is present. Motor function is 5 out of 5 in his upper and lower extremities. 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 Course Reevaluation(s) Initial Evaluation: Patient was initially seen at 6:30 PM Time: 19:46 Reevaluation: Patient does not feel any worse. There does not appear to be any changes on exam Time: 21:34 Reevaluation #2: I have spoken with Dr. Ramírez from ENT who is in [place]. We will consult [facility]. I have updated the patient and his on the results of the CT. On the advice of Dr. Ramírez we will give him Unasyn. The patient subjectively the objectively appears slightly improved. I am waiting to speak with [facility] transfer center Consultations Consultation #1: [facility] at [facility] Time: 21:30 Consultation #2: I spoke with Dr. Karly Jacobs ([place]?[facility]). She has reviewed the CTs. There no beds available at [facility]. I have called the transfer center at [facility] and requested that the patient be transferred there. I have signed the patient out to Dr. Houser who has seen and examined the patient. His symptoms have definitely improved both subjectively and objectively. He still has some changes in phonation Vital Signs Vital signs: Vital Signs Temperature 36.9 C 09/21/22 18:19 Pulse 79 09/21/22 18:19 Respiratory Rate 18 09/21/22 18:19 Blood Pressure 165/80 H 09/21/22 18:19 Pulse Oximetry 95 09/21/22 18:19 Temperature 36.9 C 09/21/22 18:19 Temperature Source Skin 09/21/22 18:19 Pulse 79 09/21/22 18:19 Respiratory Rate 18 09/21/22 18:19 Respiratory Effort Normal 09/21/22 18:25 Blood Pressure 165/80 H 09/21/22 18:19 Blood Pressure Position Sitting 09/21/22 18:19 Pulse Oximetry 95 09/21/22 18:19 Oxygen Delivery Method Room Air 09/21/22 18:19 Oxygen Flow Rate 0 09/21/22 18:19 Lab/Test Results Lab/Test Results: Mild leukocytosis with a white count of 12 slight anemia with an H&H of 12 and 34.7 Critical Care Time Critical Care Time Total Critical Care Time: 65 Attestation: Critical care time was spent at the bedside, reviewing the patient's radiographs and labs, consulting with ENT at [facility] and Dr. Houser and reviewing the patient's previous medical records.
[2022-09-21] MEDS: diphenhydrAMINE 50 MG/ML VIAL IVP (19:02)
[2022-09-21] MEDS: methylPREDNISolone SUCC 125 MG VIAL IVP (19:02)
[2022-09-21] MEDS: Famotidine 20 MG/2 ML VIAL IVP (19:02)
[2022-09-21] MEDS: Normal Saline 1,000 ML 150 ML IV (19:03)
[2022-09-21 19:10] LABS: Lactate 1.1 mmol/L (0.6-1.4)
[2022-09-21 19:11] LABS: Abs Immature Grans 0.06 10^3/uL (0.0-0.06); Absolute Eosinophil Count 0.29 10^3/uL (0.0-0.7); Absolute Neutrophil Count 8.96 10^3/uL (1.2-6.7); Basophils % 0.2; Eosinophils % 2.4; HCT 34.7 % (40.0-50.0); Immature Grans % 0.5; Lymphocytes % 8.2; MCH 30.8 pg (27.0-33.0); MCHC 34.6 % (32.0-36.0); MCV 89 fL (80-95); Monocytes % 14.8; Neutrophils % 73.9; Platelet Count 266 10^3/uL (130-400); RDW 13.6 % (11.8-14.1); RDW-SD 44.3 fL; WBC 12.13 10^3/uL (4.4-10.8)
[2022-09-21 19:20] LABS: Absolute Basophil Count 0.02 10^3/uL (0.0-0.2); Absolute Lymphocyte Count 0.99 10^3/uL (1.2-3.4)
[2022-09-21 19:25] LABS: Diff Comment Agrees w/ Instrument; RBC Morphology Normal
[2022-09-21 19:32] LABS: ALT 49 U/L (16-63); AST 30 U/L (15-37); Albumin 3.5 g/dL (3.4-5.0); Alkaline Phosphatase 101 U/L (46-116); Anion Gap 9.5 mmol/L (3-11); BUN 23 mg/dL (7-18); Bilirubin, Total 0.3 mg/dL (0.2-1.0); CO2 24.5 mmol/L (21.0-32.0); CREATININE 1.4 mg/dL (0.70-1.30); Chloride 97 mmol/L (98-107); Estimated GFR 52.74 (mL/min/1.73m2); Glucose 121 mg/dL (74-106); Potassium 3.7 mmol/L (3.5-5.1); Sodium 131 mmol/L (136-145); Total Protein 7.2 g/dL (6.4-8.2)
[2022-09-21] MEDS: Omnipaque 350 MG/ML 100 ML BTL IJ (19:50)
[2022-09-21] MEDS: Normal Saline - Diluent 50 ML VIAL IJ (19:51)
--- NOTE | 2022-09-21 20:18 | DI.VRAD_ITS ---
PROCEDURE INFORMATION: Exam: CT Head Without Contrast Exam date and time: 09/21/2022 7:49 PM Age: 72 years old Clinical indication: Other: Tongue swelling TECHNIQUE: Imaging protocol: Computed tomography of the head without contrast. Radiation optimization: All CT scans at this facility use at least one of these dose optimization techniques: automated exposure control; mA and/or kV adjustment per patient size (includes targeted exams where dose is matched to clinical indication); or iterative reconstruction. COMPARISON: No relevant prior studies available. FINDINGS: Brain: Mild volume loss No hemorrhage. Unremarkable white matter. No mass effect. Cerebral ventricles: No ventriculomegaly. Paranasal sinuses: Visualized sinuses are unremarkable. No fluid levels. Mastoid air cells: Visualized mastoid air cells are well aerated. Bones/joints: Unremarkable. No acute fracture. Soft tissues: Unremarkable. IMPRESSION: No acute intracranial abnormality. Dictated and Authenticated by: Benny Leon MD. Ordering:YA Nance MD
--- NOTE | 2022-09-21 20:32 | DI.VRAD_ITS ---
PROCEDURE INFORMATION: Exam: CT Neck With Contrast Exam date and time: 09/21/2022 7:49 PM Age: 72 years old Clinical indication: Abscess, tonsil and abscess, pharyngeal and mass, lump, or swelling in neck and other: Tongue swelling; Bilateral TECHNIQUE: Imaging protocol: Computed tomography of the neck with contrast. Radiation optimization: All CT scans at this facility use at least one of these dose optimization techniques: automated exposure control; mA and/or kV adjustment per patient size (includes targeted exams where dose is matched to clinical indication); or iterative reconstruction. Contrast material: OMNI 350; Contrast volume: 100 ml; Contrast route: INTRAVENOUS (IV); COMPARISON: No relevant prior studies available. FINDINGS: Pharynx: Enlarged nasopharyngeal tissues. Asymmetric enlargement of the left greater than right lingual tonsils.. Larynx: Unremarkable. Epiglottis is normal. Prevertebral and retropharyngeal spaces: Ovoid low-attenuation structure measuring 2.4 by 2.2 cm in greatest dimensions in the retropharyngeal space eccentric to the right mildly extending across midline may represent a necrotic versus suppurative lymph node There is retropharyngeal edema extending from C3 through C5 Salivary glands: Prominent intraparotid lymph nodes. Thyroid: Hypodense nodule on the right measuring 2 cm. Lymph nodes: Multiple enlarged lymph nodes in the neck bilaterally some of which demonstrate low attenuation/necrotic centers Trachea: Visualized trachea is unremarkable. Lungs: Unremarkable as visualized. Bones/joints: No acute fracture. Soft tissues: No significant soft tissue swelling. IMPRESSION: Multiple enlarged lymph nodes as described largest in the retropharyngeal space. Necrotic malignancy favored over suppurative lymph nodes. Retropharyngeal edema versus developing collection at C3-C5 Enlarged lingual tonsils greater on the left. Underlying lesion not excluded 2 cm hypodense nodule in the right lobe of the thyroid. Comparison with prior images would be helpful. Otherwise, nonurgent sonography of the thyroid gland may be helpful if not already performed Dictated and Authenticated by: Benny Leon MD. Ordering:YA Nance MD
[2022-09-21 21:44] LABS: Bilirubin Negative (Negative); Blood Trace-intact (Negative); Clarity Clear (Clear); Glucose Negative (Negative); Ketones Negative (Negative); Leukocyte Esterase Negative (Negative); Nitrite Negative (Negative); Specific Gravity <= 1.005 (1.005-1.025); Urobilinogen 0.2 mg/dL (Up to 0.2)
[2022-09-21 21:53] LABS: Bacteria Rare HPF (Negative); Epithelial Cells Rare HPF (Negative); RBC 0-2 HPF (0-2); WBC Negative HPF (0-5)
[2022-09-21 21:54] LABS: C & S Indicated? No; Casts Negative LPF (Negative); Crystals Negative HPF (Negative); Mucus Negative (Negative)
[2022-09-21] MEDS: AMPICILLIN/SULBACTAM 3 GM in Normal Saline 100 ML IVPB (21:58)
[2022-09-22] VITALS (27 sets, daily range): BP systolic 116–161; BP diastolic 66–86; PULSE 76–101; RESP 12–22; O2SAT 90–94
--- NOTE | 2022-09-22 02:11 | ED.PROG_ITS ---
Date of service: 09/22/22 Time of Service: 02:11 Medical Decision Making pt signed out to pending call back from [facility], he is stable and feeling better though still has a muffled voice, no stridor or drooling, handling his secretions well. [facility] unable to accept for transfer due to capacity, will reach out to [facility]. pt stable, still handling secretions, no dyspnea or drooling and swallowing without issues. [facility] and [facility] declined due to capacity. [facility] does have capacity and have accepted the pt in transfer, accepting provider is Dr. Guo. Pt updated and is agreeable to the plan. Sign Out Sign Out Data: Sign Out Comment: I have discussed with Dr. Houser who has seen and examined the patient with me. I have spoken with the transfer center at [facility] and we are awaiting a callback. Last updated by Lee Ann Lucero MD at 09/22/22 00:21 Discharge Plan Disposition Specific Acute Inpt Facility: [place] Condition: Serious Discharge Details Chief Complaint: GenMedical Clinical Impression: Abscess, retropharyngeal Primary Care Provider: Frederick Meade ED Provider: Maragrito Houser [place] Meds and New Rx's Prescriptions: No Action All Day Allergy (cetirizine) 10 mg capsule 10 mg PO DAILY PRN ferrous sulfate [Feosol] 325 mg (65 mg iron) tablet See Rx Instructions PO DAILY Rx Instructions: 650 mg PO daily; lisinopril-hydrochlorothiazide 20-12.5 mg tablet 1 tab PO DAILY Qty: 90 3RF aspirin [Aspirin Low-Strength] 81 MG tablet,chewable 81 mg PO DAILY (DME) blood-glucose meter [[employer] UltraMini] 1 EACH kit 1 ea Miscellaneous DAILY Qty: 1 allopurinol 100 mg tablet 200 mg PO DAILY Qty: 180 3RF (DME) blood sugar diagnostic Strip See Dose Instructions .ROUTE .MEDSUPPLY Qty: 100 3RF Dose Instruction: As directed Rx Instructions: test daily (DME) lancets Misc 1 ea Intradermal DAILY Qty: 100 3RF Rx Instructions: test daily
--- NOTE | 2022-09-22 03:16 | NUR.NOTE ---
Attempted to call the pt's to inform her of the plan, but the number given and back up number did not work stating The number you have called is not accepting calls at this time. Went into the pt's room and asked if they had another contact/phone number which he did not.
[2022-09-23 16:15] LABS: PSA, Ultrasensitive 0.04 ng/mL (<= 6.5)
== END 2022-09-22 03:50 | disposition left against medical advice (07) ==
PROVIDERS: Emergency Medicine Emergency Medical Services; Emergency Provider Emergency Medicine; PCP Family Medicine
DX: J39.0 Retropharyngeal and parapharyngeal abscess (principal)
CPT/HCPCS: 70491; 80053; 84153; 87040; 96361; 96365; 96375; 99285; 70450; 81003; 81015; 83605; 85025; J0295; J1200; J2930; J3490

== ENCOUNTER 2022-09-30 02:57 | Emergency (ER) | payer MEDICARE, SELFPAY ==
[2022-09-30 03:00] VITALS: BP 160/82; PULSE 85; RESP 18; TEMP 36.5; O2SAT 96
[2022-09-30 03:11] VITALS: RESP 18
--- NOTE | 2022-09-30 03:17 | ED.GENADUL_ITS ---
Discharge Plan Disposition Patient Disposition: Home Condition: Good Discharge Details Clinical Impression: Lymphadenitis, Pain Primary Care Provider: Frederick Meade ED Provider: Brittnee Tyson Home Meds and New Rx's Prescriptions: Continued All Day Allergy (cetirizine) 10 mg capsule 10 mg PO DAILY PRN ferrous sulfate [Feosol] 325 mg (65 mg iron) tablet See Rx Instructions PO DAILY Rx Instructions: 650 mg PO daily; lisinopril-hydrochlorothiazide 20-12.5 mg tablet 1 tab PO DAILY Qty: 90 3RF aspirin [Aspirin Low-Strength] 81 MG tablet,chewable 81 mg PO DAILY allopurinol 100 mg tablet 200 mg PO DAILY Qty: 180 3RF amoxicillin-pot clavulanate 875-125 mg tablet 1 tab PO DAILY Patient Comments: will finish on 10/01/22 No Action (DME) blood-glucose meter [[employer] UltraMini] 1 EACH kit 1 ea Miscellaneous DAILY Qty: 1 (DME) blood sugar diagnostic Strip See Dose Instructions .ROUTE .MEDSUPPLY Qty: 100 3RF Dose Instruction: As directed Rx Instructions: test daily (DME) lancets Misc 1 ea Intradermal DAILY Qty: 100 3RF Rx Instructions: test daily Discharge Instructions Additional Instructions: Take tylenol and ibuprofen over the counter as needed for pain: tylenol 650mg every 4 hours stating at 0930 tomorrow, ibuprofen 400mg every 4 hours starting at 0930. Take once 5mg oxycodone if needed at night for pain that prevents you from sleeping. Do not drive while on this medication. Call your primary care doctor on Sunday to schedule an appointment to follow up on your visit here and to discuss your pain. Return to the emergency department for new or worsening symptoms including fever, pain that does respond to medication, worsening tongue swelling, drooling, difficultly breathing, or if you have any other concerns. Referrals: Frederick Meade MD [Primary Care Provider] - Medical Decision Making 72yo M with DM, prostate cancer, recent admission for possible retropharygneal abscess and tongue swelling, presenting for lymph node pain. History from patient, family, and medical record review. Notes, labs, and imaging reviewed from ED visit 09/21 and clinic vist 09/27; in brief, patient presented with tongue swelling, CT was concerning for possible RP abscess vs necrotic maligancy, and he was transferred to [facility]. Was doing well on his followup visit on 09/27. brought lab results from [facility] which I reviewed; WBC 14.26 and Hg 10.4 and unremarkable CMP on discharge. Presents today for tender left sided lymphadenopathy; this is the only new change since discharge from the hospital. No fevers, malaise, worsening tongue swelling, or other concerns. Unable to sleep tonight 2/t to pain which prompted presentation to the ED. Vital signs and physical exam reassuring; he does have tender posterior auricular and anterior cervical lymphadenopathy bilaterally, worst at the left post auricular. No fluctuance or erythema, not concerning for abscess. Likely reactive due to whatever underlying process is occuring (likely malignancy, biopsy results pending per pt, does continue on amoxicillin currently). Would not repeat imaging/CT/etc as aside from lymphadenopathy symptoms are unchanged. Not septic. Not concerned for airway obstruction. Given Tylenol and toradol for symptoms. CBC & CMP reviewed as below; WBC of 13.34 improving, CMP with mild hyponatremia (chronic on record review) and borderline hypokalemia at 3.4. Advised to discuss these findings which his primary care doctor. On reassessment he reports pain has much improved but is still present; not sure if he will be able to sleep. Advised tylenol and ibuprofen at home, will send with short course of oxycodone for breakthrough pain. Discharged home; discharge instructions including return precautions were reviewed with patient who verbalized understanding. All questions were answered and they are in full agreement with the plan. Medical Records Medical records reviewed: Yes I reviewed the patient's medical records. Medical records narrative: ED visit note 09/21/22 Clinic visit note 09/27/22 CT scan [facility] labs Imaging Data Radiologic Study: Radiologist's impression: FINDINGS: Pharynx:? Enlarged nasopharyngeal tissues. Asymmetric enlargement of the left greater than right lingual tonsils.. Larynx: Unremarkable. Epiglottis is normal. Prevertebral and retropharyngeal spaces:? Ovoid low-attenuation structure measuring 2.4 by 2.2 cm in greatest dimensions in the retropharyngeal space eccentric to the right mildly extending across midline may represent a necrotic versus suppurative lymph node There is retropharyngeal edema extending from C3 through C5 Salivary glands:? Prominent intraparotid lymph nodes. Thyroid:? Hypodense nodule on the right measuring 2 cm.? Lymph nodes:? Multiple enlarged lymph nodes in the neck bilaterally some of which demonstrate low attenuation/necrotic centers Trachea: Visualized trachea is unremarkable. Lungs: Unremarkable as visualized. Bones/joints: No acute fracture. Soft tissues: No significant soft tissue swelling. IMPRESSION: Multiple enlarged lymph nodes as described largest in the retropharyngeal space.? Necrotic malignancy favored over suppurative lymph nodes. Retropharyngeal edema versus developing collection at C3-C5 Enlarged lingual tonsils greater on the left. Underlying lesion not excluded 2 cm hypodense nodule in the right lobe of the thyroid.? Comparison with prior images would be helpful. Otherwise, nonurgent sonography of the thyroid gland may be helpful if not already performed Lab Data Lab results reviewed: Yes I reviewed the patient's lab results. Labs: Laboratory Tests Range/Units 09/30/22 09/30/22 03:26 03:26 WBC (4.4-10.8) 10^3/uL 13.34 H RBC (4.36-5.78) 10^6/uL 4.20 L Hgb (13.5-17.5) g/dL 13.0 L Hct (40.0-50.0) % 37.4 L MCV (80-95) fL 89 MCH (27.0-33.0) pg 31.0 MCHC (32.0-36.0) % 34.8 RDW (11.8-14.1) % 13.9 Plt Count (130-400) 10^3/uL 320 MPV (8.0-11.0) fL 9.2 Immature Gran % 1.4 Neutrophils % 67.6 Lymphocytes % 10.9 Monocytes % 16.1 Eosinophils % 3.4 Basophils % 0.6 Nucleated RBC % (0.0-0.3) % 0.0 Absolute Neutrophils (1.2-6.7) 10^3/uL 9.02 H Absolute Lymphocytes (1.2-3.4) 10^3/uL 1.45 Absolute Monocytes (0.1-0.8) 10^3/uL 2.15 H Absolute Eosinophils (0.0-0.7) 10^3/uL 0.45 Absolute Basophils (0.0-0.2) 10^3/uL 0.08 RBC Morphology Normal Sodium (136-145) mmol/L 132 L Potassium (3.5-5.1) mmol/L 3.4 L Chloride (98-107) mmol/L 96 L Carbon Dioxide (21.0-32.0) mmol/L 23.4 Anion Gap (3-11) mmol/L 12.6 H BUN (7-18) mg/dL 24 H Creatinine (0.70-1.30) mg/dL 1.3 Est GFR (CKD-EPI 2020) (mL/min/1.73m2) 57.65 Glucose (74-106) mg/dL 129 H Calcium (8.5-10.1) mg/dL 9.0 Total Bilirubin (0.2-1.0) mg/dL 0.3 AST (15-37) U/L 19 ALT (16-63) U/L 42 Alkaline Phosphatase (46-116) U/L 115 Total Protein (6.4-8.2) g/dL 7.3 Albumin (3.4-5.0) g/dL 3.6 HPI General Mode of arrival: ambulatory . Date/Time Provider Initiated Documentation: 09/30/22 03:00 . Limitations to Documentation: no limitations . Information obtained by: patient, family and old records reviewed . HPI Narrative: 72yo M with DM, recent admission for possible retropharygneal abscess and tongue swelling, presenting for lymph node pain. Has been doing overall well since hospital discharge on 09.24; had followup visit with PCP on 09/27. Does have continued tongue swelling but it is improving. Biopsy results pending. Today noted swollen pain full lymph node behind his LEFT ear (had this earlier this week on the RIGHT) which is interfering with sleep. Worse with pressure i.e. head on pillow. No alleviating factors; has not tried OTC meds. Otherwise no changes; no fevers, chills, rash, nausea, vomiting, pain elsewhere, worsening tongue swelling, difficultly with secretions, respiratory distress, or other concerns. Related Data Home Medications Medication Instructions Recorded Confirmed aspirin 81 mg chewable tablet 81 mg PO DAILY 06/24/12 09/30/22 (Aspirin Low-Strength) blood-glucose meter ([employer] ##1 07/31/16 09/27/22 UltraMini kit) cetirizine 10 mg capsule (All Day 10 mg PO DAILY PRN 01/16/18 09/30/22 Allergy (cetirizine)) ferrous sulfate 325 mg (65 mg See Rx Instructions PO DAILY 03/12/20 09/30/22 iron) tablet (Feosol) lisinopril 20 1 tab PO DAILY #90 tab-caps 03/22/22 09/30/22 mg-hydrochlorothiazide 12.5 mg tablet allopurinol 100 mg tablet 200 mg PO DAILY #180 tab-caps 06/14/22 09/30/22 blood sugar diagnostic #100 ea 07/10/22 09/27/22 lancets #100 ea 07/10/22 09/27/22 amoxicillin 875 mg-potassium 1 tab PO DAILY 09/30/22 09/30/22 clavulanate 125 mg tablet Previous Rx's Medication Instructions Recorded lisinopril 20 1 tab PO DAILY #90 tab-caps 03/22/22 mg-hydrochlorothiazide 12.5 mg tablet allopurinol 100 mg tablet 200 mg PO DAILY #180 tab-caps 06/14/22 blood sugar diagnostic #100 ea 07/10/22 lancets #100 ea 07/10/22 Allergies Allergy/AdvReac Type Severity Reaction Status Date / Time No Known Allergies Allergy Verified 09/30/22 03:10 General Stated Complaint: GenMedical BENJI: 3 Review of Systems Narrative: see HPI PFSH All Active Problems (Updated 09/30/22 @ 04:27 by Brittnee Tyson MD) Lymphadenitis (Acute) Pain (Acute) Abscess, retropharyngeal (Acute) Actinic keratosis (Acute) Diabetes mellitus (Chronic 07/03/12) BS deterioration due to dietary indiscretion Essential hypertension (Acute 12/27/12) Overweight (Acute) regular exercise/dietary discretion advised Fracture of phalanx of finger (Acute) SOBOE (shortness of breath on exertion) (Acute) likely due to reduced 02 carrying capacity due to anemia Prostate cancer (Acute 10/05/14) 2014 radiation RX/lupron Polyp of colon (Acute) tiny rectal hyperplastic polyp Nystagmus (Acute) History of tobacco use (Acute) Gout (Acute 12/24/07) Diverticulosis of colon without diverticulitis (Acute) Cataract (Acute 07/03/12) Anemia (Acute) EGD-HH, ESOPH INFLAMMATION; 11/25 COLO-DIVERTICULOSIS, TINY RECTAL POLYP c-scope 2012: hyperpl. polyp Family History Mother , AGE 38 Alcohol abuse Father , AGE 76 Diabetes Sister Diabetes Maternal Grandfather , age 80 Stroke Maternal Grandmother , age 88 Diabetes Social History Smoking/Tobacco Use Status: Former Tobacco Use Quit Date: 02/20/84 Smokeless tobacco user: chewing tobacco (former use) Second Hand Exposure: No Smoking risk assessment performed?: Yes Alcohol Intake: current Alcohol Intake frequency: a few times a month Alcohol type: beer Drug use: Never Substance use type: does not use Caregiver/Support person: No Household members: spouse Housing: apartment Communication Needs: Corrective Lenses Do you need help understanding health information?: Never Pets and animals: No Sexually active: No Do you think of yourself as: straight/heterosexual Current gender identity: male What is your relationship status?: How often do you talk on the phone with friends or family?: three or more times per week How often do you get together with friends or relatives?: three or more times per week How often do you attend presybeterian or christianity services?: 1-3 times per year Do you belong to any clubs or organized social groups?: yes Panel score (0-1 are the most socially isolated patients): 3 What type of physical activity do you participate in: walking and bicycling Duration: 60-90 minutes/day Frequency: 3-4 times per week Lily/Muslim: Evangelical Special lily needs: No Seatbelt use: always Helmet use: Yes Helmet use: always Drive intox or ride w/intox skidder driver: No Do you feel safe at home: Yes Do you feel safe in your relationship?: Yes Exam Narrative Exam Narrative: General: Alert, well appearing, well nourished, in no acute distress. Head: Normocephalic, atraumatic Neck: Trachea midline, Neck supple. Tender post-auricular lymphadenopathy L > R. Lymphadenopathy in anterior cervical chain bilaterally. ENT: MMM. Moderately swollen tongue. No oropharyngeal exudate. No difficulty with secretions. Cardiac: RRR, no murmurs appreciated Resp: No respiratory distress. CTAB. Abd: Soft, non-distended, nontender Extremities: No deformities. No peripheral edema. Neurologic: GCS 15. Moves all extremities freely against gravity Course Vital Signs Vital signs: Vital Signs Temperature 36.5 C 09/30/22 03:00 Pulse 85 09/30/22 03:00 Respiratory Rate 18 09/30/22 03:00 Blood Pressure 160/82 H 09/30/22 03:00 Pulse Oximetry 96 09/30/22 03:00 Temperature 36.5 C 09/30/22 03:00 Temperature Source Oral 09/30/22 03:00 Pulse 85 09/30/22 03:00 Respiratory Rate 18 09/30/22 03:11 Respiratory Effort Normal, Non-Labored 09/30/22 03:11 Respiratory Depth Normal 09/30/22 03:11 Respiratory Pattern Normal 09/30/22 03:11 Blood Pressure 160/82 H 09/30/22 03:00 Blood Pressure Position Sitting 09/30/22 03:00 Pulse Oximetry 96 09/30/22 03:00 Oxygen Delivery Method Room Air 09/30/22 03:00 Oxygen Flow Rate 0 09/30/22 03:00 Pain Level 9 09/30/22 03:00
[2022-09-30] MEDS: Acetaminophen 500 MG TAB 1000 MG PO (03:25)
[2022-09-30] MEDS: Ketorolac 15 MG/ML VIAL IVP (03:25)
[2022-09-30 03:40] LABS: Abs Immature Grans 0.19 10^3/uL (0.0-0.06); Absolute Basophil Count 0.08 10^3/uL (0.0-0.2); Absolute Lymphocyte Count 1.45 10^3/uL (1.2-3.4); Absolute Monocyte Count 2.15 10^3/uL (0.1-0.8); Basophils % 0.6; Eosinophils % 3.4; HCT 37.4 % (40.0-50.0); Immature Grans % 1.4; Lymphocytes % 10.9; MCHC 34.8 % (32.0-36.0); MCV 89 fL (80-95); MPV 9.2 fL (8.0-11.0); Monocytes % 16.1; Neutrophils % 67.6; Platelet Count 320 10^3/uL (130-400); RDW 13.9 % (11.8-14.1); RDW-SD 44.6 fL; WBC 13.34 10^3/uL (4.4-10.8)
[2022-09-30 03:55] LABS: Absolute Eosinophil Count 0.45 10^3/uL (0.0-0.7); Absolute Neutrophil Count 9.02 10^3/uL (1.2-6.7)
[2022-09-30 03:56] LABS: Diff Comment Agrees w/ Instrument; RBC Morphology Normal
[2022-09-30 04:06] LABS: ALT 42 U/L (16-63); AST 19 U/L (15-37); Albumin 3.6 g/dL (3.4-5.0); Alkaline Phosphatase 115 U/L (46-116); Anion Gap 12.6 mmol/L (3-11); BUN 24 mg/dL (7-18); Bilirubin, Total 0.3 mg/dL (0.2-1.0); CO2 23.4 mmol/L (21.0-32.0); CREATININE 1.3 mg/dL (0.70-1.30); Chloride 96 mmol/L (98-107); Estimated GFR 57.65 (mL/min/1.73m2); Glucose 129 mg/dL (74-106); Potassium 3.4 mmol/L (3.5-5.1); Sodium 132 mmol/L (136-145); Total Protein 7.3 g/dL (6.4-8.2)
[2022-09-30 04:44] VITALS: BP 121/67; PULSE 81; RESP 18; TEMP 36.5; O2SAT 96
== END 2022-09-30 04:45 | disposition home or self-care (01) ==
PROVIDERS: Emergency Provider Student in an Organized Health Care Education/Training Program; PCP Family Medicine
DX: I88.9 Nonspecific lymphadenitis, unspecified (principal)
CPT/HCPCS: 36415; 80053; 96374; 99284; 85025; J1885

== ENCOUNTER 2022-10-05 08:35 | Outpatient (REF) | payer MEDICARE, SELFPAY ==
--- NOTE | 2022-10-05 08:00 | PAPNONF_PTH ---
PATIENT: Cheo Freire LOC: [facility] U#:[id number] AGE/SX: 72/M ROOM: RE10/05/[address]: Lg Ramírez MD : 1950 BED: DIS: 10/05/2022 SPEC #: [id number] RECD: 10/05/22 17:30 STATUS: FBAIO REMerly #: [id number] MYRNA: 10/05/22 08:[address]: Lg Ramírez DEPT: [facility] Cytology RECD BY: Chanel Valadez ENTERED: 10/05/22 17:33 SP TYPE: BELLA TAYLOR DR: Frederick Meade MD Tissues: 1 - BODY FLUID CYTO-FINE NEEDLE ASPIRATE-[facility] Procedures: BODY FLUID CYTO-FINE NEEDLE ASPIRATE-[facility] Comments: [id number] (REFRIGERATED)
--- NOTE | 2022-10-05 08:00 | TONG_PTH ---
PATIENT: Cheo Freire LOC: [facility] U#:[id number] AGE/SX: 72/M ROOM: RE10/05/[address]: Lg Ramírez MD : 1950 BED: DIS: 10/05/2022 SPEC #: [id number] RECD: 10/05/22 17:06 STATUS: FBAIO REQ #: [id number] MYRNA: 10/05/22 08:[address]: Lg Ramírez DEPT: Surgical Specimen RECD BY: Chanel Valadez ENTERED: 10/05/22 17:13 SP TYPE: KESHA TAYLOR DR: Frederick Meade MD Tissues: 1 - TONGUE BIOPSY 2 - FLOW CYTOMETRY NODE/TISSUE Procedures: GROSS AND MICRO LEVEL 4 IMMUNOPEROXIDASE STAIN Single Probe In Situ Hybridization MIB-1 IHC Semi Quantative % FLOW CYTOMETRY LYMPHOMA PNL Comments: [id number] (FLOW CYTOMETRY - [id number])
== END 2022-10-05 08:36 | disposition home or self-care (01) ==
LOC: LBN 08:35
PROVIDERS: PCP Family Medicine; Visit Provider Otolaryngology
DX: R59.1 Generalized enlarged lymph nodes (principal); D72.820 Lymphocytosis (symptomatic); C83.30 Diffuse large B-cell lymphoma, unspecified site; Z85.46 Personal history of malignant neoplasm of prostate; K14.8 Other diseases of tongue
CPT/HCPCS: 88185; 88305; 88360; 88368; 88104; 88184; 88189; 88361

== ENCOUNTER 2022-10-11 04:08 | Outpatient (CLI) | payer MEDICARE, SELFPAY ==
[2022-10-11 11:01] LABS: Abs Immature Grans 0.14 10^3/uL (0.0-0.06); Absolute Basophil Count 0.02 10^3/uL (0.0-0.2); Absolute Eosinophil Count 0.07 10^3/uL (0.0-0.7); Absolute Lymphocyte Count 0.88 10^3/uL (1.2-3.4); Absolute Monocyte Count 1.16 10^3/uL (0.1-0.8); Basophils % 0.2; Eosinophils % 0.6; HCT 32.1 % (40.0-50.0); HGB 10.8 g/dL (13.5-17.5); Immature Grans % 1.2; Lymphocytes % 7.4; MCH 30.8 pg (27.0-33.0); MCHC 33.6 % (32.0-36.0); MCV 92 fL (80-95); Monocytes % 9.7; Neutrophils % 80.9; Platelet Count 290 10^3/uL (130-400); RBC 3.51 10^6/uL (4.36-5.78); RDW 14.1 % (11.8-14.1); RDW-SD 46.8 fL; WBC 11.95 10^3/uL (4.4-10.8)
[2022-10-11 11:02] LABS: Absolute Neutrophil Count 9.67 10^3/uL (1.2-6.7)
[2022-10-11 11:21] LABS: ALT 49 U/L (16-63); AST 15 U/L (15-37); Alkaline Phosphatase 105 U/L (46-116); Anion Gap 8.1 mmol/L (3-11); BUN 20 mg/dL (7-18); Bilirubin, Total 0.3 mg/dL (0.2-1.0); CO2 25.9 mmol/L (21.0-32.0); CREATININE 1.2 mg/dL (0.70-1.30); Calcium 9.3 mg/dL (8.5-10.1); Chloride 100 mmol/L (98-107); Estimated GFR 63.46 (mL/min/1.73m2); Glucose 178 mg/dL (74-106); LDH 283 U/L (85-227); Sodium 134 mmol/L (136-145); Total Protein 6.5 g/dL (6.4-8.2); Uric Acid 5.2 mg/dL (3.5-7.2)
[2022-10-11 14:35] LABS: Iron 62 ug/dL (65-175); Total Iron Binding Capacity 214 ug/dL (250-450); Transferrin Sat 29 % (20-55)
[2022-10-11 14:49] LABS: Ferritin 139 ng/mL (26-388)
[2022-10-12 09:41] LABS: IgA 182 mg/dL (85-499); IgG 735 mg/dL (610-1616); IgM 233 mg/dL (35-242)
== END 2022-10-11 04:09 | disposition home or self-care (01) ==
LOC: LBO 04:08
PROVIDERS: PCP Family Medicine; Visit Provider Internal Medicine Hematology & Oncology
DX: C85.98 Non-Hodgkin lymphoma, unspecified, lymph nodes of multiple sites (principal); D50.9 Iron deficiency anemia, unspecified
CPT/HCPCS: 36415; 80053; 82784; 82728; 83540; 83550; 83615; 84550; 85025

== ENCOUNTER 2022-10-25 05:30 | Inpatient (IN) | payer MEDICARE, SELFPAY ==
[2022-10-25] VITALS (36 sets, daily range): BP systolic 101–151; BP diastolic 52–88; PULSE 75–127; RESP 10–25; TEMP 37.3–38.8; O2SAT 93–98
--- NOTE | 2022-10-25 | DI.CT_ITS ---
Exam(s) CT ABDOMEN PELVIS W EXAM: CT ABDOMEN PELVIS W CLINICAL HISTORY: B-cell lymphoma, abd pain TECHNIQUE: Imaging Protocol: Axial computed tomography images with coronal and sagittal reformatted images were created and reviewed CONTRAST MATERIAL: Intravenous: Omnipaque 350 Contrast volume:100 mL Oral: Yes COMPARISON: No exams were available for comparison FINDINGS: ABDOMEN: Lung Bases: There is a small peripheral opacity in the right lower lobe. Liver: Normal density. No measurable mass. Portal, Superior Mesenteric, and Splenic Veins: Unremarkable. Gallbladder and Biliary Tract: No radiodense calculus or dilation. Pancreas: Normal density, no abnormal calcifications or inflammatory process. Spleen: Normal. No splenomegaly. Adrenals: No masses seen. Kidneys: Normal size, contour and axis. No radiodense stones or obstructive uropathy. There are bilat eral simple renal cysts. No follow-up is recommended. Abdominal Aorta: Abdominal portion non-dilated. Atherosclerosis. Bowel: There is mild thickening of the wall of the rectum. Mild perirectal inflammation is also seen . There are few diverticula in the colon but no evidence of acute diverticulitis. No evidence of jorge l wel obstruction. No pneumatosis. The stomach is distended. The oral contrast has passed into the c olon. No evidence of appendicitis. Peritoneal Cavity: No ascites, collection or mesenteric inflammatory response. No free air. Lymph Nodes: Within normal limits. Bones: Within normal limits for the patient's age. There is an old right rib fracture deformity. Soft Tissues: Fat containing right inguinal hernia is present. There is a fat containing umbilical h ernia. PELVIS: Bladder: Symmetric distention, no gross wall thickening. Reproductive Organs: The patient appears to have had a prior prostatectomy. Please correlate clinica lly. Lymph Nodes: Within normal limits. Bones: Within normal limits for the patient's age. IMPRESSION: 1. Mild rectal wall thickening with mild perirectal inflammation which may reflect proctitis. 2. Small peripheral opacity in the right lower lobe which may represent atelectasis or scarring. Pne umonia cannot be excluded. Please correlate clinically. RADIATION DOSE DELIVERED: 1,447.42mGy.cm Total DLP DATA REPOSITORY: All CT scans at this facility are submitted to the National Radiology Data Registry (NRDR) Dose Index Registry (DIR) with the [employer] (ACR). RADIATION OPTIMIZATION: All CT scans at this facility use at least one of these dose optimization te chniques: automated exposure control; mA and/or kV adjustment per patient size (includes targeted exa ms where dose is matched to clinical indication); or iterative reconstruction.
--- NOTE | 2022-10-25 05:30 | RT.EKG_ITS ---
APPROVED REPORT Exam: Resting ECG Reason for Exam: [facility] Patient Location: E HR:108 bpm ECG Measurements Heart Rate 108 AXIS VT 168 P 61 QRSd 86 QRS 30 QT 290 T -23 QTc 389 Conclusion Sinus tachycardia...rate> 99
--- NOTE | 2022-10-25 05:49 | ED.GENADUL_ITS ---
Discharge Plan Disposition Patient Disposition: Admit to [facility] Discharge Details Clinical Impression: Fever and neutropenia Admit Date/Time: 10/25/22 07:41 Admit Provider: Johnny Canela Attending Provider: Johnny Canela Primary Care Provider: Frederikc Meade ED Provider: Andres Templeton Discharge Data Discharge Date/Time-TO BE ENTERED AT DEPARTURE: 10/25/22 09:23 Medical Decision Making MDM: Summary: Patient presents to the emergency department with a fever of 38 ?C but no other complaints except for the fact that he had chemotherapy done a week ago. Likely as it was elevated and initially we started 30 cc/kg's of IV fluids blood cultures for septic work-up. Is also noted to be absolutely neutropenic. IV a ntibiotics for neutropenic fever were started empirically Zosyn and vancomycin IV Data Review Analysis All the data on this patient was reviewed by me including laboratory and imaging studies as well as bedside studies performed by me Independent review of Studies Imaging Lab: Labs show absolute neutropenia Risk Stratification: Patient with neutropenic fever will need to be admitted to the hospital for IV antibiotics and isolation precautions Differential Diagnosis: 1. Febrile neutropenia 2. Sepsis 3. Pneumonia 4. 5. Consultants: Spoke with the hospitalist who agrees and will admit the patient to the hospital Shared disposition: Patient and family understand the disposition of spoke with the thoroughly and he will be admitted to the hospital he received antibiotics in the emergency department Impression: Medical Records Medical records reviewed: Yes I reviewed the patient's medical records. Lab Data Lab results reviewed: Yes I reviewed the patient's lab results. ECG Data Attestation: I personally reviewed and interpreted this ECG (s) as follows: Interpretation: Sinus tachycardia heart rate [address]-T changes HPI General Date/Time Provider Initiated Documentation: 10/25/22 05:49 . HPI Narrative: Patient presents to the emergency department complaining of having a fever for the last 12 hours. Patient has a history of B-cell lymphoma and states that he had a port placed 1 week ago and received chemotherapy a week ago Sunday. Denies cough denies shortness of breath denies dysuria but states the only symptom he has is a fever and feeling very thirsty Related Data Home Medications Medication Instructions Recorded Confirmed aspirin 81 mg chewable tablet 81 mg PO DAILY 06/24/12 10/25/22 (Aspirin Low-Strength) blood-glucose meter (MerchMeTouch ##1 07/31/16 10/25/22 UltraMini kit) cetirizine 10 mg capsule (All Day 10 mg PO DAILY PRN 01/16/18 10/25/22 Allergy (cetirizine)) ferrous sulfate 325 mg (65 mg See Rx Instructions PO DAILY 03/12/20 10/25/22 iron) tablet (Feosol) allopurinol 100 mg tablet 200 mg PO DAILY #180 tab-caps 06/14/22 10/25/22 blood sugar diagnostic #100 ea 07/10/22 10/25/22 lancets #100 ea 07/10/22 10/25/22 amoxicillin 875 mg-potassium 1 tab PO DAILY 09/30/22 10/05/22 clavulanate 125 mg tablet amlodipine 5 mg tablet 5 mg PO DAILY #30 tabs 10/05/22 10/25/22 oxycodone 10 mg tablet 10 mg PO QHS PRN pain #30 tabs 10/05/22 10/05/22 acyclovir 400 mg tablet 400 mg PO BID 10/25/22 10/25/22 prochlorperazine maleate 10 mg 10 mg PO PRN PRN 10/25/22 10/25/22 tablet Previous Rx's Medication Instructions Recorded allopurinol 100 mg tablet 200 mg PO DAILY #180 tab-caps 06/14/22 blood sugar diagnostic #100 ea 07/10/22 lancets #100 ea 07/10/22 amlodipine 5 mg tablet 5 mg PO DAILY #30 tabs 10/05/22 oxycodone 10 mg tablet 10 mg PO QHS PRN pain #30 tabs 10/05/22 Allergies Allergy/AdvReac Type Severity Reaction Status Date / Time No Known Allergies Allergy Verified 10/25/22 06:07 General Stated Complaint: Fever BENJI: 3 Review of Systems Narrative: Review of Systems: Constitutional: No , sweats Eye: No recent visual problems ENT: No ear pain, nasal congestion, sore throat Respiratory: No shortness of breath, cough Cardiovascular: No Chest pain, palpitations, syncope Gastrointestinal: No nausea, vomiting, diarrhea Genitourinary: No hematuria Grayson/Lymph: Negative for bruising tendency, swollen lymph glands Endocrine: Negative for excessive thirst, excessive hunger Musculoskeletal: No back pain, neck pain, joint pain, muscle pain, decreased range of motion Integumentary: No rash, pruritus, abrasions Neurologic: Alert & oriented X 4 Psychiatric: No anxiety, depression PFSH All Active Problems (Updated 10/25/22 @ 12:15 by Margarito Bowman MD) Fever and neutropenia (Acute) B-cell lymphoma (Acute) Diabetes mellitus (Chronic 07/03/12) 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 polyp Cataract (07/03/12) Diverticulosis of colon without diverticulitis Essential hypertension (12/27/12) Fracture of phalanx of finger History of tobacco use Lymphadenitis Lymphadenopathy Nystagmus Overweight regular exercise/dietary discretion advised Pain Polyp of colon tiny rectal hyperplastic polyp Prostate cancer (10/05/14) 2014 radiation RX/lupron SOBOE (shortness of breath on exertion) likely due to reduced 02 carrying capacity due to anemia Family History Mother , AGE 38 Alcohol abuse Father , AGE 76 Diabetes Sister Diabetes Maternal Grandfather , age 80 Stroke Maternal Grandmother , age 88 Diabetes Social History Smoking/Tobacco Use Status: Former Tobacco Use Quit Date: 02/20/84 Smokeless tobacco user: chewing tobacco (former use) Second Hand Exposure: No Smoking risk assessment performed?: Yes Alcohol Intake: current Alcohol Intake frequency: a few times a month Alcohol type: beer Drug use: Never Substance use type: does not use Caregiver/Support person: No Household members: spouse Housing: apartment Communication Needs: Corrective Lenses Do you need help understanding health information?: Never Pets and animals: No Sexually active: No Do you think of yourself as: straight/heterosexual Current gender identity: male What is your relationship status?: How often do you talk on the phone with friends or family?: three or more times per week How often do you get together with friends or relatives?: three or more times per week How often do you attend alevism or jainism services?: 1-3 times per year Do you belong to any clubs or organized social groups?: yes Panel score (0-1 are the most socially isolated patients): 3 What type of physical activity do you participate in: walking and bicycling Duration: 60-90 minutes/day Frequency: 3-4 times per week Lily/Worship: Religious Special lily needs: No Seatbelt use: always Helmet use: Yes Helmet use: always Drive intox or ride w/intox mobile lounge driver or operator: No Do you feel safe at home: Yes Do you feel safe in your relationship?: Yes Exam Narrative Exam Narrative: Exam; vitals signs as reported above abnormal Constitutional; In no acute distress, febrile General: cooperative, healthy appearing, comfortable and no acute distress HEENT: Head: normal to inspection, no palpable skull fracture and normocephalic atraumatic Eyes: : appearance normal, both eyes and all related structures EOM intact bilaterally Pupils: PERRL : conjunctiva normal Direct ophthalmoscopy: normal light reflex, normal conjunctiva, normal visual acuity Ears: Normal TM, normal external canal Nose: normal no rhinorreha Neck no JVD, supple non tender Neck: normal visual inspection, full ROM and no lymphadenopathy Chest: normal inspection of the chest Respiratory : normal respiratory effort and able to speak in complete sentences no wheezing no rales Cardio Rate: regular rate, rhythm: regular rhythm normal heart sounds S1 and S2 no murmurs, gallops, or rubs GI : normal to inspection, normal bowel sounds, soft, non tender, non distended, no organomegaly Back/Spine/ no CVA tenderness Thoracic/Lumbar Spine: no tenderness or deformities Skin no rashes or lesions Neuro: patient alert oriented x 4 and no meningeal signs, Cranial Nerves: CN's II-XI intact bilaterally, Cognition: normal cognition, Speech: speech normal, Gait: normal gait, Depp tendon reflexes normal 2+ muscle strength 5/5 bilaterally Extremities, no edema, full range of motion, normal strength Course Vital Signs Vital signs: Vital Signs Temperature 38.8 C H 10/25/22 05:32 Pulse 113 H 10/25/22 05:32 Respiratory Rate 18 10/25/22 05:32 Blood Pressure 151/78 H 10/25/22 05:32 Pulse Oximetry 96 10/25/22 05:32 Temperature 38.8 C H 10/25/22 05:32 Pulse 113 H 10/25/22 05:32 Respiratory Rate 18 10/25/22 05:32 Blood Pressure 151/78 H 10/25/22 05:32 Pulse Oximetry 96 10/25/22 05:32 Oxygen Delivery Method Room Air 10/25/22 05:32 Oxygen Flow Rate 0 10/25/22 05:32 Vital Signs & Lab Results Vital Signs Most Recent Vital Signs: Most Recent Vital Signs Temp Pulse Resp BP Pulse Ox 38.8 C H 93 H 18 123/56 L 96 10/25/22 05:32 10/25/22 06:31 10/25/22 06:40 10/25/22 06:31 10/25/22 06:40 Point of Care Results Nursing Point of Care Results: Finger Stick Blood Glucose 212 H (70 - 120) 10/25/22 21:48 Lab Results 10/25/22 05:45 10/25/22 05:45 Blood Type / Crossmatch: No Data to Display Complete Metabolic Panel: Sodium 137 mmol/L (136-145) 10/25/22 05:45 Potassium 4.0 mmol/L (3.5-5.1) 10/25/22 05:45 Chloride 103 mmol/L (98-107) 10/25/22 05:45 Carbon Dioxide 23.6 mmol/L (21.0-32.0) 10/25/22 05:45 BUN 18 mg/dL (7-18) 10/25/22 05:45 Creatinine 1.2 mg/dL (0.70-1.30) 10/25/22 05:45 Est GFR (CKD-EPI 2020) 63.46 (mL/min/1.73m2) 10/25/22 05:45 Calcium 8.8 mg/dL (8.5-10.1) 10/25/22 05:45 Albumin 2.9 g/dL (3.4-5.0) L 10/25/22 05:45 Glucose 232 mg/dL (74-106) H 10/25/22 05:45 Liver Function Panel: Alanine Aminotransferase (ALT/SGPT) 20 U/L (16-63) 10/25/22 05: 45 Aspartate Amino Transf (AST/SGOT) 9 U/L (15-37) L 10/25/22 05:4 5 Coagulation Panel: INR International Normalized Ratio 1.0 (0.9-1.1) 10/25/22 05:4 5 Prothrombin Time 10.1 sec (9.3-11.0) 10/25/22 05:45 Cardiac Panel: Troponin I < 50 ng/L (<or=60) 10/25/22 Arterial Blood Gas: No Data to Display Venous Blood Gas: No Data to Display Pancreas Panel: No Data to Display Thyroid Panel: No Data to Display Infectious Disease: Coronavirus (COVID-19)(PCR) Negative (Negative) 10/25/22 08:00 Coronavirus 2019 Source Nasopharynx 10/25/22 08:00 Influenza Virus Type A (PCR) Negative (Negative) 10/25/22 08:0 0 Influenza Virus Type B (PCR) Negative (Negative) 10/25/22 08:0 0 Respiratory Syncytial Virus (PCR) Negative (Negative) 10/25/22 08:00 Blood Cultures: No Data to Display Toxicology Panel: No Data to Display Vital Signs and Lab Results Vital Signs Most Recent Vital Signs in EMR: Most Recent Vital Signs Temp Pulse Resp BP Pulse Ox 38.8 C H 94 H 21 123/54 L 97 10/25/22 05:32 10/25/22 07:01 10/25/22 07:10 10/25/22 07:01 10/25/22 07:10 Lab Results 10/25/22 05:45 10/25/22 05:45 Blood Type / Crossmatch: No Data to Display Complete Blood Count: White Blood Count 0.17 10^3/uL (4.4-10.8) L* 10/25/22 05:45 Red Blood Count 3.26 10^6/uL (4.36-5.78) L 10/25/22 05:45 Hemoglobin 9.8 g/dL (13.5-17.5) L 10/25/22 05:45 Hematocrit 29.7 % (40.0-50.0) L 10/25/22 05:45 Platelet Count 82 10^3/uL (130-400) L 10/25/22 05:45 Venous Blood Lactate 1.4 mmol/L (0.6-1.4) 10/25/22 12:23 Complete Metabolic Panel: Sodium 137 mmol/L (136-145) 10/25/22 05:45 Potassium 4.0 mmol/L (3.5-5.1) 10/25/22 05:45 Chloride 103 mmol/L (98-107) 10/25/22 05:45 Carbon Dioxide 23.6 mmol/L (21.0-32.0) 10/25/22 05:45 BUN 18 mg/dL (7-18) 10/25/22 05:45 Creatinine 1.2 mg/dL (0.70-1.30) 10/25/22 05:45 Est GFR (CKD-EPI 2020) 63.46 (mL/min/1.73m2) 10/25/22 05:45 Calcium 8.8 mg/dL (8.5-10.1) 10/25/22 05:45 Albumin 2.9 g/dL (3.4-5.0) L 10/25/22 05:45 Glucose 232 mg/dL (74-106) H 10/25/22 05:45 Liver Function Panel: Alanine Aminotransferase (ALT/SGPT) 20 U/L (16-63) 10/25/22 05: 45 Aspartate Amino Transf (AST/SGOT) 9 U/L (15-37) L 10/25/22 05:4 5 Coagulation Panel: INR International Normalized Ratio 1.0 (0.9-1.1) 10/25/22 05:4 5 Prothrombin Time 10.1 sec (9.3-11.0) 10/25/22 05:45 Cardiac Panel: Troponin I < 50 ng/L (<or=60) 10/25/22 Arterial Blood Gas: No Data to Display Venous Blood Gas: No Data to Display Pancreas Panel: 2 No Data to Display Thyroid Panel: No Data to Display Infectious Disease: Coronavirus (COVID-19)(PCR) Negative (Negative) 10/25/22 08:00 Coronavirus 2019 Source Nasopharynx 10/25/22 08:00 Influenza Virus Type A (PCR) Negative (Negative) 10/25/22 08:0 0 Influenza Virus Type B (PCR) Negative (Negative) 10/25/22 08:0 0 Respiratory Syncytial Virus (PCR) Negative (Negative) 10/25/22 08:00 Blood Cultures: No Data to Display Toxicology Panel: No Data to Display
[2022-10-25] MEDS: Acetaminophen 325 MG TAB 650 MG PO ×2 (06:00→20:01)
[2022-10-25] MEDS: Normal Saline 1,000 ML 1000 ML IV (06:00)
[2022-10-25 06:06] LABS: Abs Immature Grans 0.01 10^3/uL (0.0-0.06); Absolute Monocyte Count 0.03 10^3/uL (0.1-0.8); HCT 29.7 % (40.0-50.0); HGB 9.8 g/dL (13.5-17.5); MCH 30.1 pg (27.0-33.0); MCV 91 fL (80-95); MPV 10.9 fL (8.0-11.0); Platelet Count 82 10^3/uL (130-400); RBC 3.26 10^6/uL (4.36-5.78); RDW 13.7 % (11.8-14.1); RDW-SD 46.1 fL
[2022-10-25 06:11] LABS: Lactate 2.4 mmol/L (0.6-1.4)
[2022-10-25 06:18] LABS: Bilirubin Negative (Negative); Blood Negative (Negative); Clarity Clear (Clear); Glucose Negative (Negative); Ketones Negative (Negative); Leukocyte Esterase Negative (Negative); Nitrite Negative (Negative); Urobilinogen 0.2 mg/dL (Up to 0.2); pH 5.5 (5-8)
[2022-10-25 06:21] LABS: Prothrombin Time 10.1 sec (9.3-11.0)
[2022-10-25 06:25] LABS: ALT 20 U/L (16-63); AST 9 U/L (15-37); Albumin 2.9 g/dL (3.4-5.0); Alkaline Phosphatase 120 U/L (46-116); Anion Gap 10.4 mmol/L (3-11); BUN 18 mg/dL (7-18); Bilirubin, Total 0.6 mg/dL (0.2-1.0); CO2 23.6 mmol/L (21.0-32.0); CREATININE 1.2 mg/dL (0.70-1.30); Calcium 8.8 mg/dL (8.5-10.1); Chloride 103 mmol/L (98-107); Estimated GFR 63.46 (mL/min/1.73m2); Glucose 232 mg/dL (74-106); Sodium 137 mmol/L (136-145)
[2022-10-25] MEDS: PIPERACILLIN/TAZO 4.5 GM in Normal Saline 100 ML IVPB (06:40)
[2022-10-25] MEDS: VANCOMYCIN 1,000 MG in Normal Saline 250 ML 166.6666 MG IVPB (06:41)
--- NOTE | 2022-10-25 07:20 | DI.RAD_ITS ---
Exam(s) XR PORTABLE CHEST AP EXAM: XR PORTABLE CHEST AP CLINICAL HISTORY: fever TECHNIQUE: 2D digital imaging was performed of the chest. Two images were obtained. AP views were obtained. COMPARISON: No exams were available for comparison FINDINGS: MEDIASTINUM: Normal. HEART: Normal. PULMONARY VASCULATURE: Normal. LUNGS: Clear. PLEURAL SPACE: No pleural effusion or pneumothorax. BONE:Within normal limits for the patient's age. OTHER FINDINGS:The tip of the right IJ catheter is in good position at the cavoatrial junction. IMPRESSION: No acute pulmonary findings. DATA REPOSITORY: RADIATION DOSE DELIVERED:
[2022-10-25 07:41] LABS: WBC 0.17 10^3/uL (4.4-10.8)
[2022-10-25 07:42] LABS: Absolute Lymphocyte Count 0.12 10^3/uL (1.2-3.4); Atypical Lymphocytes % 2
[2022-10-25 07:43] LABS: Diff Comment Manual Differential
[2022-10-25 07:44] LABS: Absolute Neutrophil Count 0.02 10^3/uL (1.2-6.7)
[2022-10-25 07:45] LABS: RBC Morphology Normal
--- NOTE | 2022-10-25 07:45 | NUR.NOTE ---
Nursing Note: this RN Took report from lab for crit ANC of 0.02 provider aware
--- NOTE | 2022-10-25 08:45 | DI.VRAD_ITS ---
PROCEDURE INFORMATION: Exam: XR Chest Exam date and time: 10/25/2022 7:19 AM Age: 72 years old Clinical indication: Chest pressure; Patient HX: Chest pain, SOB TECHNIQUE: Imaging protocol: Radiologic exam of the chest. Views: 1 view. COMPARISON: No relevant prior studies are available for comparison. FINDINGS: Tubes, catheters and devices: Right central venous catheter. Lungs: Streaky opacities at the lung bases. Pleural spaces: No large pleural effusion seen. Heart/Mediastinum: Cardiac silhouette magnified by AP technique. Bones/joints: Grossly unremarkable. IMPRESSION: Streaky bibasilar opacities. Consider atelectasis, pneumonia. Follow-up as clinically warranted. Dictated and Authenticated by: Shannan Ames MD. Ordering:JUSTINE Campos MD
[2022-10-25 08:53] LABS: COVID-19 PCR Negative (Negative); Influenza A PCR Negative (Negative); Influenza B PCR Negative (Negative); RSV PCR Negative (Negative)
[2022-10-25 08:57] LABS: Source Nasopharynx
[2022-10-25 08:58] LABS: Lactate 1.8 mmol/L (0.6-1.4)
[2022-10-25 09:00] LABS: Lab Add On Test DONE
[2022-10-25 09:20] LABS: Troponin I < 50 ng/L (<or=60)
[2022-10-25 09:34] LABS: Procalcitonin 0.5 ng/mL
[2022-10-25] MEDS: Omnipaque 350 MG/ML 50 ML BTL PO (10:53)
[2022-10-25] MEDS: Breeza Beverage 473 ML BTL PO ×2 (10:53→10:54)
[2022-10-25] MEDS: Fluconazole 100 MG TAB 400 MG PO (11:10)
[2022-10-25] MEDS: Normal Saline Flush 10 ML SYR IVP ×2 (11:10→13:47)
[2022-10-25] MEDS: CEFEPIME 2 GM in Normal Saline 100 ML IVPB ×2 (11:11→21:52)
--- NOTE | 2022-10-25 12:01 | HPE_ITS ---
Date of service: 10/25/22 Time of Service: 12:01 Assessment and Plan Assessment and plan (1) Fever and neutropenia: Status: Acute Assessment and plan: ANC of 20. He had a Tmax of 38.8. Being treated for febrile neutropenia with cefepime 2 g every 12 hours. Started fluconazole for 100 mg daily. Continue acyclovir. Blood cultures are pending. No source is identified as of yet. (2) B-cell lymphoma: Status: Acute Assessment and plan: Underwent his first round of R CHOP chemotherapy on 10/18/2022. He has had quite a dramatic reaction with severe neutropenia. Feedback was given to [facility]. (3) Diabetes mellitus: Status: Chronic Assessment and plan: Type 2 diabetes on no medications. Blood sugar was elevated at 232 on admission. Will check fingersticks before meals and at bedtime. Moderate sliding scale ordered. (4) Gout: Status: Acute Assessment and plan: He has recurrent gout for which he takes allopurinol and as needed colchicine. Wrote for his standing allopurinol dose. We will hold on as needed colchicine unless he becomes symptomatic. History of Present Illness History of Present Illness Chief Complaint: Febrile neutropenia Narrative: This is a 72-year-old man recently diagnosed with large B-cell lymphoma. On 09/22/2022 he presented to the emergency room with neck swelling. He was tesfaye sferred to [facility], (no tertiary care beds available locally). He had a 3-day hospital stay during which time he had biopsies taken which were negative for malignancy. He has since followed up with Dr. Abdullahi Ramírez for further biopsies of his right neck lymphadenopathy. These came back positive for B-cell lymphoma. On 10/18/2022 he underwent his first round of RCHOP chemotherapy. He did receive the Neulasta on pro upon completion. He felt well for the ensuing 4 days but last evening began to have fever and chills. He had some abdominal cramping for which she took some MiraLAX and had a large bowel movement. He had difficulty urinating which has since dissipated. His was very concerned and brought him to the emergency room. In the emergency room he had a temp of 38.8 other vitals were otherwise stable. His chest x-ray showed no infiltrate, his urinalysis was clear. His white count showed only 170 white cells with an ANC of 20. Given his fever and profound neutropenia he is admitted for IV antibiotics and reverse precautions. I spoke with Dr. Magdaleno, hematology oncology. He recommended a CT of the abdomen because of his abdominal discomfort. He recommended cefepime and fluconazole. He is admitted to acute care status. He will be monitored until his ANC is greater than 500 and he is stable. Review of Systems Narrative: Patient states he had been feeling well over the past weekend but yesterday which was hazy hot and humid with a temp of 87 Fahrenheit he felt weak and tired. He did not overexert himself. During the night he began to feel feverish and had chills with onset of abdominal cramping. They called [facility] hematology oncology and they recommended MiraLAX. He had a large bowel movement and felt better but then had trouble urinating. called 911 at about 4 AM and he was brought to the emergency room. The crampy abdominal pain has resol maliha. He is urinating fine now. His temperature is down to 38.2. He overall feels much better and is now hungry. He has not had any chest pain. No shortness of breath. No difficulty breathing. The swelling of glands that he had had in early September has largely resolved. This morning his says he looks much better. PFSH All Active Problems (Updated 10/25/22 @ 12:15 by Margarito Bowman MD) Fever and neutropenia (Acute) B-cell lymphoma (Acute) Diabetes mellitus (Chronic 07/03/12) 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 polyp Cataract (07/03/12) Diverticulosis of colon without diverticulitis Essential hypertension (12/27/12) Fracture of phalanx of finger History of tobacco use Lymphadenitis Lymphadenopathy Nystagmus Overweight regular exercise/dietary discretion advised Pain Polyp of colon tiny rectal hyperplastic polyp Prostate cancer (10/05/14) 2015 radiation RX/lupron SOBOE (shortness of breath on exertion) likely due to reduced 02 carrying capacity due to anemia Family History Mother , AGE 38 Alcohol abuse Father , AGE 76 Diabetes Sister Diabetes Maternal Grandfather , age 80 Stroke Maternal Grandmother , age 88 Diabetes Social History Smoking/Tobacco Use Status: Former Tobacco Use Quit Date: 02/20/84 Smokeless tobacco user: chewing tobacco (former use) Second Hand Exposure: No Smoking risk assessment performed?: Yes Alcohol Intake: current Alcohol Intake frequency: a few times a month Alcohol type: beer Drug use: Never Substance use type: does not use Caregiver/Support person: No Household members: spouse Housing: apartment Communication Needs: Corrective Lenses Do you need help understanding health information?: Never Pets and animals: No Sexually active: No Do you think of yourself as: straight/heterosexual Current gender identity: male What is your relationship status?: How often do you talk on the phone with friends or family?: three or more times per week How often do you get together with friends or relatives?: three or more times per week How often do you attend spiritism or hindu services?: 1-3 times per year Do you belong to any clubs or organized social groups?: yes Panel score (0-1 are the most socially isolated patients): 3 What type of physical activity do you participate in: walking and bicycling Duration: 60-90 minutes/day Frequency: 3-4 times per week Lily/Uatsdin: Jain Special lily needs: No Seatbelt use: always Helmet use: Yes Helmet use: always Drive intox or ride w/intox driver salesman: No Do you feel safe at home: Yes Do you feel safe in your relationship?: Yes Meds Allergies and Home Medications Allergies Allergy/AdvReac Type Severity Reaction Status Date / Time No Known Allergies Allergy Verified 10/25/22 06:07 Home Medications Medication Instructions Recorded Confirmed Type aspirin 81 mg chewable tablet 81 mg PO DAILY 06/24/12 10/25/22 History (Aspirin Low-Strength) blood-glucose meter (TweekabooTouch ##1 07/31/16 10/25/22 History UltraMini kit) cetirizine 10 mg capsule (All Day 10 mg PO DAILY PRN 01/16/18 10/25/22 History Allergy (cetirizine)) ferrous sulfate 325 mg (65 mg See Rx Instructions PO DAILY 03/12/20 10/25/22 History iron) tablet (Feosol) allopurinol 100 mg tablet 200 mg PO DAILY #180 tab-caps 06/14/22 10/25/22 Rx blood sugar diagnostic #100 ea 07/10/22 10/25/22 Rx lancets #100 ea 07/10/22 10/25/22 Rx amoxicillin 875 mg-potassium 1 tab PO DAILY 09/30/22 10/05/22 History clavulanate 125 mg tablet amlodipine 5 mg tablet 5 mg PO DAILY #30 tabs 10/05/22 10/25/22 Rx oxycodone 10 mg tablet 10 mg PO QHS PRN pain #30 tabs 10/05/22 10/05/22 Rx acyclovir 400 mg tablet 400 mg PO BID 10/25/22 10/25/22 History prochlorperazine maleate 10 mg 10 mg PO PRN PRN 10/25/22 10/25/22 History tablet Exam Narrative Exam Narrative: On exam he appears in no apparent distress. He is thirsty and eating. He is fully cooperative with exam and gives a good history. Speech is clear there is no facial asymmetry palpation of the neck region shows several discrete lymph nodes along the right sternocleidomastoid each about 1-1/2 cm a total of 3. There was no superior clavicular nodes palpable. He had a port placed at [facility] recently. The incision looks clean and dry with a layer of glue over the top. There is no overlying erythema. There is some very slight bruising. There is no swelling associated with this postsurgical site. His posterior lung exam sounded completely clear in for distinct sections. There were no wheezes or rales. His heart sounds are somewhat muffled. No murmur is appreciated. His abdomen is quite markedly obese but overall soft and nontender in all 4 quadrants. No masses are palpable. The lower extremities show no evidence of edema and appear well-perfused. He is very muscular. Neurologically there does not appear to be any focal deficits. Results Imaging Chest x-ray: report reviewed (No infiltrates reported) Labs 10/25/22 05:45 10/25/22 05:45 Labs: Laboratory Results - last 24 hr 10/25/22 10/25/22 10/25/22 05:45 05:45 05:45 WBC 0.17 L* RBC 3.26 L Hgb 9.8 L Hct 29.7 L MCV 91 MCH 30.1 MCHC 33.0 RDW 13.7 Plt Count 82 L MPV 10.9 Immature Gran % See Differential Neutrophils % 14.0 Lymphocytes % 68.0 Atypical Lymphs % 2 Monocytes % 17.0 Eosinophils % 0.0 Basophils % 0.0 Nucleated RBC % 0.0 Absolute Neutrophils 0.02 L* Absolute Lymphocytes 0.12 L Absolute Monocytes 0.03 L Absolute Eosinophils 0.00 Absolute Basophils 0.00 RBC Morphology Normal PT INR VBG Lactate 2.4 H* Sodium 137 Potassium 4.0 Chloride 103 Carbon Dioxide 23.6 Anion Gap 10.4 BUN 18 Creatinine 1.2 Est GFR (CKD-EPI 2020) 63.46 Glucose 232 H Calcium 8.8 Total Bilirubin 0.6 AST 9 L ALT 20 Alkaline Phosphatase 120 H Troponin I Total Protein 6.0 L Albumin 2.9 L Procalcitonin Urine Color Urine Clarity Urine pH Ur Specific [place] Urine Protein Urine Ketones Urine Blood Urine Nitrite Urine Bilirubin Urine Urobilinogen Ur Leukocyte Esterase Urine Glucose COVID-19 Source SARS-CoV-2 (PCR) Influenza Type A (PCR) Influenza Type B (PCR) RSV (PCR) Add-On Test Request 10/25/22 10/25/22 10/25/22 05:45 06:05 08:00 WBC RBC Hgb Hct MCV MCH MCHC RDW Plt Count MPV Immature Gran % Neutrophils % Lymphocytes % Atypical Lymphs % Monocytes % Eosinophils % Basophils % Nucleated RBC % Absolute Neutrophils Absolute Lymphocytes Absolute Monocytes Absolute Eosinophils Absolute Basophils RBC Morphology PT 10.1 INR 1.0 VBG Lactate Sodium Potassium Chloride Carbon Dioxide Anion Gap BUN Creatinine Est GFR (CKD-EPI 2020) Glucose Calcium Total Bilirubin AST ALT Alkaline Phosphatase Troponin I Total Protein Albumin Procalcitonin Urine Color Yellow Urine Clarity Clear Urine pH 5.5 Ur Specific [place] 1.020 Urine Protein Negative Urine Ketones Negative Urine Blood Negative Urine Nitrite Negative Urine Bilirubin Negative Urine Urobilinogen 0.2 Ur Leukocyte Esterase Negative Urine Glucose Negative COVID-19 Source Nasopharynx SARS-CoV-2 (PCR) Negative Influenza Type A (PCR) Negative Influenza Type B (PCR) Negative RSV (PCR) Negative Add-On Test Request 10/25/22 10/25/22 10/25/22 08:55 08:55 08:55 WBC RBC Hgb Hct MCV MCH MCHC RDW Plt Count MPV Immature Gran % Neutrophils % Lymphocytes % Atypical Lymphs % Monocytes % Eosinophils % Basophils % Nucleated RBC % Absolute Neutrophils Absolute Lymphocytes Absolute Monocytes Absolute Eosinophils Absolute Basophils RBC Morphology PT INR VBG Lactate 1.8 H Sodium Potassium Chloride Carbon Dioxide Anion Gap BUN Creatinine Est GFR (CKD-EPI 2020) Glucose Calcium Total Bilirubin AST ALT Alkaline Phosphatase Troponin I < 50 Total Protein Albumin Procalcitonin Urine Color Urine Clarity Urine pH Ur Specific [place] Urine Protein Urine Ketones Urine Blood Urine Nitrite Urine Bilirubin Urine Urobilinogen Ur Leukocyte Esterase Urine Glucose COVID-19 Source SARS-CoV-2 (PCR) Influenza Type A (PCR) Influenza Type B (PCR) RSV (PCR) Add-On Test Request DONE 10/25/22 08:55 WBC RBC Hgb Hct MCV MCH MCHC RDW Plt Count MPV Immature Gran % Neutrophils % Lymphocytes % Atypical Lymphs % Monocytes % Eosinophils % Basophils % Nucleated RBC % Absolute Neutrophils Absolute Lymphocytes Absolute Monocytes Absolute Eosinophils Absolute Basophils RBC Morphology PT INR VBG Lactate Sodium Potassium Chloride Carbon Dioxide Anion Gap BUN Creatinine Est GFR (CKD-EPI 2020) Glucose Calcium Total Bilirubin AST ALT Alkaline Phosphatase Troponin I Total Protein Albumin Procalcitonin 0.5 Urine Color Urine Clarity Urine pH Ur Specific [place] Urine Protein Urine Ketones Urine Blood Urine Nitrite Urine Bilirubin Urine Urobilinogen Ur Leukocyte Esterase Urine Glucose COVID-19 Source SARS-CoV-2 (PCR) Influenza Type A (PCR) Influenza Type B (PCR) RSV (PCR) Add-On Test Request Last Vital Signs Temp 38.2 C H 10/25/22 09:30 Pulse 82 10/25/22 11:11 Resp 18 10/25/22 09:30 BP 111/64 10/25/22 09:30 Pulse Ox 96 10/25/22 09:30 PAWSS Pt Consumed Any Amount of Alcohol Within the Last 30 days OR had positive TONIO Upon Admission: No Time Spent Time spent with Patient: >75 minutes Time was spent: preparing to see the patient(eg.review tests), obtaining and/or reviewing separately otained hiistory, ordering medications,tests, procedures, referring, communicating with other health direct support professional caregiver, indepentently i nterpreting results and counseling the patient
[2022-10-25] MEDS: Insulin Aspart 300 UNITS/3 ML PEN SC ×2 (12:25→17:31)
[2022-10-25 12:31] LABS: Lactate 1.4 mmol/L (0.6-1.4)
[2022-10-25] MEDS: Omnipaque 350 MG/ML 100 ML BTL IJ (13:45)
[2022-10-25] MEDS: Normal Saline - Diluent 50 ML VIAL IJ (13:46)
[2022-10-25] MEDS: Acyclovir 400 MG TAB PO (20:02)
[2022-10-26] VITALS (7 sets, daily range): BP systolic 126–137; BP diastolic 68–74; PULSE 76–83; RESP 16–20; TEMP 37.1–37.8; O2SAT 95–96
[2022-10-26 07:17] LABS: Abs Immature Grans 0.02 10^3/uL (0.0-0.06); Absolute Basophil Count 0.01 10^3/uL (0.0-0.2); Absolute Eosinophil Count 0.01 10^3/uL (0.0-0.7); Absolute Lymphocyte Count 0.16 10^3/uL (1.2-3.4); Basophils % 2.6; Eosinophils % 2.6; HCT 25.1 % (40.0-50.0); HGB 8.3 g/dL (13.5-17.5); Immature Grans % 5.1; MCH 29.7 pg (27.0-33.0); MCHC 33.1 % (32.0-36.0); MCV 90 fL (80-95); MPV 10.4 fL (8.0-11.0); Monocytes % 25.6; Neutrophils % 23.1; RBC 2.79 10^6/uL (4.36-5.78); RDW 13.7 % (11.8-14.1); RDW-SD 45.5 fL
[2022-10-26 07:20] LABS: Absolute Neutrophil Count 0.09 10^3/uL (1.2-6.7); WBC 0.39 10^3/uL (4.4-10.8)
[2022-10-26 07:26] LABS: Anion Gap 7.4 mmol/L (3-11); BUN 15 mg/dL (7-18); CO2 25.6 mmol/L (21.0-32.0); CREATININE 0.9 mg/dL (0.70-1.30); Calcium 8.5 mg/dL (8.5-10.1); Chloride 102 mmol/L (98-107); Estimated GFR 89.62 (mL/min/1.73m2); Glucose 133 mg/dL (74-106); Magnesium 1.7 mg/dL (1.8-2.4); Potassium 3.4 mmol/L (3.5-5.1); Sodium 135 mmol/L (136-145)
[2022-10-26 07:41] LABS: Diff Comment Diff Reviewed; RBC Morphology Normal
[2022-10-26 07:42] LABS: Platelet Count 51 10^3/uL (130-400)
[2022-10-26] MEDS: Fluconazole 100 MG TAB 400 MG PO (07:48)
[2022-10-26] MEDS: Allopurinol 100 MG TAB 200 MG PO (07:51)
[2022-10-26] MEDS: Acyclovir 400 MG TAB PO ×2 (07:51→21:00)
[2022-10-26] MEDS: Normal Saline Flush 10 ML SYR IVP (07:53)
[2022-10-26] MEDS: Acetaminophen 325 MG TAB 650 MG PO ×2 (08:07→21:51)
[2022-10-26] MEDS: Potassium Chloride 10 MEQ CAPCR 20 MEQ PO (09:29)
[2022-10-26] MEDS: MAGNESIUM SULFATE 2 GM/50 ML BAG IVPB (09:32)
[2022-10-26] MEDS: CEFEPIME 2 GM in Normal Saline 100 ML IVPB ×2 (09:35→21:51)
--- NOTE | 2022-10-26 10:41 | INITIAL_ITS ---
Date of service: 10/26/22 Time of Service: 10:41 Care Management Initial Assmt Initial Assessment REASON FOR HOSPITALIZATION:: Neutropenic Fever PREVIOUS FUNCTIONAL STATUS/SOCIAL/FAMILY SUPPORTS:: Cheo lives in [facility] with Claritza, his of 36 years. Together they have 5 adult children, 4 of whom live locally and are supportive of the couple. 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 He enjoys playing cards, bowling, going for walks, and visiting with family and friends. Cheo drives and is independent with his ADLs at baseline. CURRENT FUNCTIONAL STATUS:: Cheo is lying in bed when CM comes to meet with him. His Claritza is present in the room. He reports feeling better today. He goes on to say he thinks he didn't drink enough water after receiving his first chemotherapy treatment and says he's going to do things differently after the second treatment. He is keeping a positive outlook and is taking it one step at a time. He shares this is his second corbin with cancer as he had prostate cancer in 2015. ADVANCE DIRECTIVES:: On file; Claritza Freire is appointed as HCA. Has patient been provided with info about the portal/API?: No Did the patient sign up for the portal?: No CODE STATUS:: Full Code INSURANCE COVERAGE / FINANCIAL ISSUES:: Medicare and [employer] Senior Supplemental Insurance CURRENT HOME/COMMUNITY SERVICES/EQUIPMENT:: No home/community services or equipment. Patient is receiving chemotherapy treatment at the [facility]. His oncologist is Adrianne Rasmussen MD. PRIMARY CARE PHYSICIAN:: Frederick Meade MD POTENTIAL DISCHARGE NEEDS:: Follow up appointments with PCP, [facility] oncologist and discharge plan of care. PATIENT/FAMILY EDUCATION NEEDS:: Review of discharge instructions including medications, limitations and follow up plan of care; discuss Ask Me Three and self management. ANTICIPATED BARRIERS TO DISCHARGE:: None identified at this time. TRANSPORTATION:: Via private vehicle with family. PLAN:: Cheo will likely be discharged home with no services when medically cleared by provider. He will follow up with his PCP, [facility] oncologist, and plan of care as instructed. He will be transported home by his via private vehicle when ready. CM will continue to follow. PFSH All Active Problems (Updated 10/26/22 @ 13:58 by Margarito Bowman MD) Hemorrhoid thrombosis (Acute) Fever and neutropenia (Acute) B-cell lymphoma (Acute) Diabetes mellitus (Chronic 07/03/12) BS deterioration due to dietary indiscretion Gout (Acute 12/24/07) Medical History (Updated 10/26/22 @ 13:58 by Margarito Bowman MD) Actinic keratosis Airway compromise Anemia EGD-HH, ESOPH INFLAMMATION; 11/25 COLO-DIVERTICULOSIS, TINY RECTAL POLYP c-scope 2012: hyperpl. polyp Cataract (07/03/12) Diverticulosis of colon without diverticulitis Essential hypertension (12/27/12) Fracture of phalanx of finger History of tobacco use Lymphadenitis Lymphadenopathy Nystagmus Overweight regular exercise/dietary discretion advised Pain Polyp of colon tiny rectal hyperplastic polyp Prostate cancer (10/05/14) 2014 radiation RX/lupron SOBOE (shortness of breath on exertion) likely due to reduced 02 carrying capacity due to anemia Family History Mother , AGE 38 Alcohol abuse Father , AGE 76 Diabetes Sister Diabetes Maternal Grandfather , age 80 Stroke Maternal Grandmother , age 88 Diabetes Social History Smoking/Tobacco Use Status: Former Tobacco Use Quit Date: 02/20/84 Smokeless tobacco user: chewing tobacco (former use) Second Hand Exposure: No Smoking risk assessment performed?: Yes Alcohol Intake: current Alcohol Intake frequency: a few times a month Alcohol type: beer Drug use: Never Substance use type: does not use Caregiver/Support person: No Household members: spouse Housing: apartment Communication Needs: Corrective Lenses Do you need help understanding health information?: Never Pets and animals: No Sexually active: No Do you think of yourself as: straight/heterosexual Current gender identity: male What is your relationship status?: How often do you talk on the phone with friends or family?: three or more times per week How often do you get together with friends or relatives?: three or more times per week How often do you attend restorationist or yazidi services?: 1-3 times per year Do you belong to any clubs or organized social groups?: yes Panel score (0-1 are the most socially isolated patients): 3 What type of physical activity do you participate in: walking and bicycling Duration: 60-90 minutes/day Frequency: 3-4 times per week Lily/Rastafarian: Yazidism Special lily needs: No Seatbelt use: always Helmet use: Yes Helmet use: always Drive intox or ride w/intox crew truck driver: No Do you feel safe at home: Yes Do you feel safe in your relationship?: Yes
[2022-10-26] MEDS: Insulin Aspart 300 UNITS/3 ML PEN SC ×2 (12:34→17:05)
--- NOTE | 2022-10-26 13:53 | PGE_ITS ---
Date of Service Date of service: 10/26/22 Time of Service: 13:53 Assessment and Plan Assessment and plan (1) Fever and neutropenia: Status: Acute Assessment and plan: ANC of 90. He had a Tmax of 38.8 yesterday. Afebrile the last 24 hours. Being treated for febrile neutropenia with cefepime 2 g every 12 hours. Started fluconazole 400 mg daily. Continue acyclovir. Blood cultures are no growth. Likely source is gastroenteritis with the loose stools and crampy abdominal pain. Probably viral. His procalcitonin was 0.5. (2) B-cell lymphoma: Status: Acute Assessment and plan: Underwent his first round of R CHOP chemotherapy on 10/18/2022. He has had quite a dramatic reaction with severe neutropenia. Feedback was given to [facility]. (3) Diabetes mellitus: Status: Chronic Assessment and plan: Type 2 diabetes on no medications. Blood sugar was elevated at 232 on admission. Blood sugar 133 this morning . Sensitive sliding scale ordered. (4) Gout: Status: Acute Assessment and plan: He has recurrent gout for which he takes allopurinol and as needed colchicine. Wrote for his standing allopurinol dose. We will hold on as needed colchicine unless he becomes symptomatic. (5) Hemorrhoid thrombosis: Status: Acute Assessment and plan: He has thrombosed hemorrhoid that is quite tender. Will provide Proctofoam applied to the area as needed. Does not need surgical intervention at this time. Subjective Subjective Interval history since last seen: He had a relatively good night sleep. He has had some loose stools and is complaining of a hemorrhoid. He has had no further fevers or chills. Appetite has been off but is a little better this morning. Exam Narrative Exam Narrative: On exam his lungs are clear heart sounded regular abdomen quite massively obese but overall nontender the rectal area showed about a 2-1/2 to 3 cm thrombosed hemorrhoid that is not firm but is quite tender to palpate located at about the 10 o'clock position. Lower extremities no CCE. Objective Last Vital Signs Temp 37.8 C H 10/26/22 08:07 Pulse 76 10/26/22 09:51 Resp 18 10/26/22 07:50 BP 128/68 10/26/22 07:50 Pulse Ox 96 10/26/22 07:50 Laboratory Results - last 24 hr 10/26/22 10/26/22 10/26/22 07:05 07:05 07:05 WBC 0.39 L* RBC 2.79 L Hgb 8.3 L Hct 25.1 L MCV 90 MCH 29.7 MCHC 33.1 RDW 13.7 Plt Count 51 L MPV 10.4 Immature Gran % 5.1 Neutrophils % 23.1 Lymphocytes % 41.0 Monocytes % 25.6 Eosinophils % 2.6 Basophils % 2.6 Nucleated RBC % 0.0 Absolute Neutrophils 0.09 L* Absolute Lymphocytes 0.16 L Absolute Monocytes 0.10 Absolute Eosinophils 0.01 Absolute Basophils 0.01 RBC Morphology Normal Sodium 135 L Potassium 3.4 L Chloride 102 Carbon Dioxide 25.6 Anion Gap 7.4 BUN 15 Creatinine 0.9 Est GFR (CKD-EPI 2020) 89.62 Glucose 133 H Calcium 8.5 Magnesium Cancelled 1.7 L Reviewed Pertinent PMH: Yes PAWSS Pt Consumed Any Amount of Alcohol Within the Last 30 days OR had positive TONIO Upon Admission: No Time Spent with Patient Time Spent with Patient: 35-49 minutes Time was spent: preparing to see the patient(eg.review tests), obtaining and/or reviewing separately otained hiistory, ordering medications,tests, procedures, referring, communicating with other health respiratory care specialist, indepentently interpreting results and counseling the patient
[2022-10-26 23:08] LABS: Legionella Ag Detection Urine Negative (Negative)
[2022-10-26 23:11] LABS: Streptococcus Pneumoniae Ag, U Negative (Negative)
[2022-10-27 06:49] LABS: HGB 8.2 g/dL (13.5-17.5); MCH 30.9 pg (27.0-33.0); MCHC 34.2 % (32.0-36.0); MCV 91 fL (80-95); MPV 11.9 fL (8.0-11.0); RBC 2.65 10^6/uL (4.36-5.78); RDW 13.8 % (11.8-14.1); RDW-SD 45.5 fL
[2022-10-27 06:52] LABS: WBC 1.39 10^3/uL (4.4-10.8)
[2022-10-27 06:58] LABS: Anion Gap 9.3 mmol/L (3-11); BUN 13 mg/dL (7-18); CO2 23.7 mmol/L (21.0-32.0); CREATININE 0.9 mg/dL (0.70-1.30); Calcium 8.6 mg/dL (8.5-10.1); Chloride 102 mmol/L (98-107); Estimated GFR 89.62 (mL/min/1.73m2); Glucose 122 mg/dL (74-106); Potassium 3.1 mmol/L (3.5-5.1); Sodium 135 mmol/L (136-145)
[2022-10-27 07:06] LABS: Magnesium 2.1 mg/dL (1.8-2.4)
[2022-10-27 07:23] LABS: Absolute Eosinophil Count 0.03 10^3/uL (0.0-0.7); Absolute Monocyte Count 0.03 10^3/uL (0.1-0.8); Absolute Neutrophil Count 0.93 10^3/uL (1.2-6.7); Bands % 6; Diff Comment Manual Differential; Platelet Count 51 10^3/uL (130-400); RBC Morphology Normal
[2022-10-27 08:08] VITALS: BP 140/76; PULSE 73; RESP 18; TEMP 36.6; O2SAT 96
[2022-10-27] MEDS: Fluconazole 100 MG TAB 400 MG PO (08:13)
[2022-10-27] MEDS: Acyclovir 400 MG TAB PO ×2 (08:13→19:17)
[2022-10-27] MEDS: Potassium Chloride 10 MEQ CAPCR 20 MEQ PO ×4 (08:14→19:17)
[2022-10-27] MEDS: Allopurinol 100 MG TAB 200 MG PO (08:14)
[2022-10-27] MEDS: POTASSIUM CHLORIDE 10 MEQ/100 ML BAG 100 MEQ IVPB ×2 (09:40→11:10)
[2022-10-27] MEDS: CEFEPIME 2 GM in Normal Saline 100 ML IVPB ×2 (10:12→21:17)
--- NOTE | 2022-10-27 11:53 | CMPROGNOTE_ITS ---
Date of service: 10/27/22 Time of Service: 11:53 Care Management Progress Note Progress Note Text Progress Note Text: S/O: Cheo was lying in bed when CM met with him. His Claritza was in the room visiting, and stated that they are waiting to meet with Dr. Arenas, as per MD, Cheo is now retaining urine, and a cardenas catheter has been placed. Per report, Dr. Arenas is not available until early next week, which CM informed them of. Claritza expressed concern about Cheo going home with a catheter. His RN was in the room, and reinforced that education would be provided if he does return home with a catheter. Cheo reported that other than his urinary retention and a hemorrhoid that is bothering him, he feels good today. CM will continue to follow. A: Cheo is a 72 year old male admitted to [facility] on 10/25/22 with neutropenic fever. P: Cheo will likely be discharged home with no services when medically cleared by provider.? He will follow up with his PCP, [facility] [place], and plan of care as instructed.? He will be transported home by his via private vehicle when ready.? CM will continue to follow.
--- NOTE | 2022-10-27 12:04 | W.INDIABCONS ---
Date of service: 10/27/22 Time of Service: 10:40 Diabetes Inpatient Consult Reason for Visit: routine diabetes education consult DESCRIPTION/ASSESSMENT: Mr Freire admitted with neutropenic fever, with PMH significant for DMII. Ordered for Insulin Aspart for mealtime insulin. Does not take diabetes meds at home. A1C has been great - high 6's to low 7's the last 6 years. ordered for consistent CHO diet and normal consistencies. does not eat raw fruit at home as they were told not to due to neutropenia. Reports fair to good appetite. Weight stable over last 6 years. No known food allergies, no sabianism food needs. meals at home are mostly prepared from scratch - they don't go out to eat much. toys inspector meals eaten outside of lunch, which is his biggest meal of the day. INTERVENTION: would consider neutropenic diet order or slight variation (no raw fruit) to keep exposures low. PLAN: will monitor during stay as inpatient for any changes in labs, intake, weight which may put him at greater nutriition risk. gave he and his my contact information to schedule outpatient nutrition counseling if desired. Time Spent in Nutritional Counseling and Treatment: 15 minutes
[2022-10-27] MEDS: Insulin Aspart 300 UNITS/3 ML PEN SC (12:07)
--- NOTE | 2022-10-27 13:24 | PGE_ITS ---
Date of Service Date of service: 10/27/22 Time of Service: 13:24 Assessment and Plan Assessment and plan (1) Fever and neutropenia: Status: Acute Assessment and plan: So far no growth on his blood cultures. Chest is clear no sign of pneumonia. Unfortunately no urine culture was obtained on admission. We will check a urine culture given his symptoms of urinary retention. Continue cefepime for now but if urine culture shows no growth and he remains afebrile tomorrow consider stopping antibiotics. I will check a repeat procalcitonin (2) B-cell lymphoma: Status: Acute Assessment and plan: Underwent his first round of R CHOP chemotherapy on 10/18/2022. He has had quite a dramatic reaction with severe neutropenia. Dr. Bowman gave feedback to [facility] oncology provider. (3) Diabetes mellitus: Status: Chronic Assessment and plan: Type 2 diabetes on no medications. Blood sugar was elevated at 232 on admission. Blood sugar 122 this morning . Sensitive sliding scale ordered. (4) Gout: Status: Acute Assessment and plan: He has recurrent gout for which he takes allopurinol and as needed colchicine. Continue allopurinol, hold colchicine unless needed for acute gout (5) Hemorrhoid thrombosis: Status: Acute Assessment and plan: I have asked Dr. Cornejo to evaluate this. He does not seem to be improving w/ the proctofoam (6) Acute urinary retention: Status: Acute Assessment and plan: on admission his CT scan showed no evidence for hydronephrosis or kidney stoness but simple renal cysts, however his bladder was distended on CT scan and he has been having high post void residuals. Nursing has been doing intermittent straight cath for residuals over 500 mL, however I think it time for placement of cardenas catheter which they did. I will get urinalysis and urine culture. Urology not available until Sunday. I expect patient may leave over the weekend in which case his needs training on care of cardenas. I have requested this from nursing. (7) Acute hypokalemia: Status: Acute Assessment and plan: K 3.4 on admission and despite iv and oral replacement it went down to 3.1. I have continued his oral replacment. Mg is ok today at 2.1 (was down to 1.7 yesterday) (8) Hypomagnesemia: Status: Acute Assessment and plan: repleted. monitor levels Subjective Subjective Interval history since last seen: Patient complaining of hemorrhoidal pain and constipation, despite use of Proctofoam. He is also having urinary retention. He has had repeated high post void residuals of over 400 mL and up to 800 mL. Cardenas has been placed. Urology consult requested but Dr. Arenas is not available until Sunday. I will increase his bowel regimen and ask surgery to see him about his hemorrhoidal pain. His blood cultures are no growth to date. Cardenas is looking clear. We never did get a urine culture on admission although his voided UA on admission was benign. Exam Narrative Exam Narrative: Cheo is lying in bed talking with his he states he is feeling uncomfortable abdomen feels bloated and is complaining of hemorrhoidal pain. Lungs clear to auscultation Heart regular rate and rhythm Abdomen is distended but soft he has active bowel sounds throughout. There is no guarding or rebound tenderness. Visual inspection of his anus shows hemorrhoids protruded and swollen but does not appear to be thrombosed. Cardenas catheter is draining clear yellow urine Objective Last Vital Signs Temp 36.6 C 10/27/22 08:08 Pulse 73 10/27/22 08:08 Resp 18 10/27/22 08:08 BP 140/76 10/27/22 08:08 Pulse Ox 96 10/27/22 08:08 Laboratory Results - last 24 hr 10/25/22 10/25/22 10/27/22 06:05 06:05 06:18 WBC RBC Hgb Hct MCV MCH MCHC RDW Plt Count MPV Immature Gran % Neutrophils % Band Neutrophils % Lymphocytes % Monocytes % Eosinophils % Basophils % Nucleated RBC % Absolute Neutrophils Absolute Lymphocytes Absolute Monocytes Absolute Eosinophils Absolute Basophils RBC Morphology Sodium Potassium Chloride Carbon Dioxide Anion Gap BUN Creatinine Est GFR (CKD-EPI 2020) Glucose Calcium Magnesium 2.1 Urine Legionella Ag Negative Ur Strep pneumoniae Ag Negative 10/27/22 10/27/22 06:18 06:18 WBC 1.39 L* RBC 2.65 L Hgb 8.2 L Hct 24.0 L MCV 91 MCH 30.9 MCHC 34.2 RDW 13.8 Plt Count 51 L MPV 11.9 H Immature Gran % 0.0 Neutrophils % 61.0 Band Neutrophils % 6 Lymphocytes % 29.0 Monocytes % 2.0 Eosinophils % 2.0 Basophils % 0.0 Nucleated RBC % 0.0 Absolute Neutrophils 0.93 L Absolute Lymphocytes 0.40 L Absolute Monocytes 0.03 L Absolute Eosinophils 0.03 Absolute Basophils 0.00 RBC Morphology Normal Sodium 135 L Potassium 3.1 L Chloride 102 Carbon Dioxide 23.7 Anion Gap 9.3 BUN 13 Creatinine 0.9 Est GFR (CKD-EPI 2020) 89.62 Glucose 122 H Calcium 8.6 Magnesium Urine Legionella Ag Ur Strep pneumoniae Ag PAWSS Pt Consumed Any Amount of Alcohol Within the Last 30 days OR had positive TONIO Upon Admission: No Time Spent with Patient Time Spent with Patient: 35-49 minutes Time was spent: preparing to see the patient(eg.review tests), indepentently interpreting results, counseling the patient and care coordination
[2022-10-27 14:55] LABS: Potassium 3.4 mmol/L (3.5-5.1)
--- NOTE | 2022-10-27 15:44 | SCONE_ITS ---
Date of service: 10/27/22 Time of Service: 15:44 Assessment and Plan Assessment and plan (1) Hemorrhoid thrombosis: Status: Acute Assessment and plan: Mr. Freire is a pleasant 72-year-old gentleman who after having a bout of severe constipation secondary to his chemotherapy drug developed a large th rombosed hemorrhoid. On exam it is soft and there is a small amount of bleeding. I suspect that the clotted blood is starting to get reabsorbed by his body. I did explain the pathophysiology of thrombosed hemorrhoids to him and his . We reviewed nonsurgical options which in his case are more favorable secondary to his neutropenia and thrombocytopenia. He is already on Proctofoam. I will start him on lidocaine ointment that he can use every 4 hours as needed, we will start him on sitz bath's after BMs and as needed for discomfort. He continues to have diarrhea so we will start Metamucil and make his Colace as needed. I did discuss his case with anesthesia in case that he does not get better with nonsurgical treatment. They would rather the patient be transferred for care because of his low platelets as we do not have any platelets in house. If we cannot transfer need to do surgery here we will need to order platelets from [facility] and give him a couple units prior to doing any surgical intervention. I will check in on the patient tomorrow and see how things are going I am hoping that he will feel a little bit better with these added medications. I will also start the patient on Flagyl 500 mg 3 times daily to try to prevent him getting an infection. 45 minutes spend reviewing the chart including imaging, 30 minutes of that were spend seeing the patient (2) Thrombocytopenia: Status: Chronic (3) Fever and neutropenia: Status: Acute History of Present Illness Narrative: Mr. Freire is a pleasant 72-year-old gentleman that I am seeing in the hospital at the request of Dr. Canela for painful hemorrhoids. He and his are providing the history. Patient was diagnosed with B-cell lymphoma and had his first chemoinfusion on Sunday. He did well the first few days and then had acute onset of severe constipation on Sunday. They called at [facility] who told him to take MiraLAX. The patient took MiraLAX and then developed diarrhea and urinary incontinence as well as increased rectal pain. He came to the emergency department where he was noted to have acute urinary retention, acute hypokalemia, hypomagnesemia, fever and neutropenia. He was admitted by the hospitalist service. He was started on Proctofoam but continues to have discomfort. Patient and his tell me that he continues to have diarrhea and is going to the bathroom quite frequently. His BMs are quite small when he does go. I did review his labs today. Of note not only has his white count low at 1.3 but his platelets are also low at 51. He is at high risk for bleeding as well as infection. I also reviewed his CT scan. There is some slight thickening of his rectum anal area. Patient tells me that he does have a history of prostate cancer and underwent radiation. He denies having issues with bowel movements after the radiation. His normal habits are a daily soft BM sometimes a little bit more constipated than others. He and his tell me that apparently the chemotherapy infusion he had on Sunday causes constipation. Consults Consult date: 10/27/22 Requesting physician: Johnny Canela Review of Systems Constitutional Constitutional: Denies anorexia, Reports fever(s), Denies headache(s), Denies night sweats and Denies poor appetite Eyes Eyes: Denies change in vision ENT Ears, Nose, Mouth, and Throat: Denies dysphagia and Denies headache(s) Cardiovascular Cardiovascular: Denies chest pain, Denies chest pain at rest, Denies irregular heart rhythm, Denies palpitations, Denies dyspnea and Denies dyspnea on exertion Respiratory Respiratory: Denies chest congestion, Denies cough, Denies dyspnea and Denies dyspnea on exertion Gastrointestinal Gastrointestinal: Reports as per HPI, Denies dysphagia, Denies dyspepsia and Denies heartburn Genitourinary Genitourinary: Reports system reviewed and no additional complaints, except as documented Musculoskeletal Musculoskeletal: Reports system reviewed and no additional complaints, except as documented Integumentary/Breasts Skin/Breast: Reports system reviewed and no additional complaints, except as documented Neurologic Neurologic: Reports system reviewed and no additional complaints, except as documented and Denies headache(s) Psychiatric Psychiatric: Reports system reviewed and no additional complaints, except as documented Endocrine Endocrine: Reports system reviewed and no additional complaints, except as documented and Denies palpitations Hematologic/Lymphatic Hematologic/Lymphatic: Reports system reviewed and no additional complaints, except as documented PFSH All Active Problems (Updated 10/27/22 @ 15:55 by Suzy Cornejo MD) Thrombocytopenia (Chronic) Hypomagnesemia (Acute) Acute hypokalemia (Acute) Acute urinary retention (Acute) Hemorrhoid thrombosis (Acute) Fever and neutropenia (Acute) B-cell lymphoma (Acute) Diabetes mellitus (Chronic 07/03/12) BS deterioration due to dietary indiscretion Gout (Acute 12/24/07) Medical History Actinic keratosis Airway compromise Anemia EGD-HH, ESOPH INFLAMMATION; 11/25 COLO-DIVERTICULOSIS, TINY RECTAL POLYP c-scope 2012: hyperpl. polyp Cataract (07/03/12) Diverticulosis of colon without diverticulitis Essential hypertension (12/27/12) Fracture of phalanx of finger History of tobacco use Lymphadenitis Lymphadenopathy Nystagmus Overweight regular exercise/dietary discretion advised Pain Polyp of colon tiny rectal hyperplastic polyp Prostate cancer (10/05/14) 2014 radiation RX/lupron SOBOE (shortness of breath on exertion) likely due to reduced 02 carrying capacity due to anemia Family History Mother , AGE 38 Alcohol abuse Father , AGE 76 Diabetes Sister Diabetes Maternal Grandfather , age 80 Stroke Maternal Grandmother , age 88 Diabetes Social History Smoking/Tobacco Use Status: Former Tobacco Use Quit Date: 02/20/84 Smokeless tobacco user: chewing tobacco (former use) Second Hand Exposure: No Smoking risk assessment performed?: Yes Alcohol Intake: current Alcohol Intake frequency: a few times a month Alcohol type: beer Drug use: Never Substance use type: does not use Caregiver/Support person: No Household members: spouse Housing: apartment Communication Needs: Corrective Lenses Do you need help understanding health information?: Never Pets and animals: No Sexually active: No Do you think of yourself as: straight/heterosexual Current gender identity: male What is your relationship status?: How often do you talk on the phone with friends or family?: three or more times per week How often do you get together with friends or relatives?: three or more times per week How often do you attend sabianism or hoahaoism services?: 1-3 times per year Do you belong to any clubs or organized social groups?: yes Panel score (0-1 are the most socially isolated patients): 3 What type of physical activity do you participate in: walking and bicycling Duration: 60-90 minutes/day Frequency: 3-4 times per week Lily/Hoahaoism: Episcopal Special lily needs: No Seatbelt use: always Helmet use: Yes Helmet use: always Drive intox or ride w/intox public transit trolley driver: No Do you feel safe at home: Yes Do you feel safe in your relationship?: Yes Exam Const General: cooperative and no acute distress Nutritional Appearance: overweight Orientation: alert and oriented x3 HENMT Head: normocephalic and atraumatic GI Inspection: normal to inspection Palpation: soft, no hepatosplenomegaly and nontender Other: Rectal Exam- There is a large thrombosed hemorrhoid at the 9 o'clock position. It is soft but tender to palpation. There is a small opening and there is a small amount of blood Internal exam not attempted at this time due to patients pain Results Last Vital Signs Temp 97.9 F 10/27/22 08:08 Pulse 73 10/27/22 08:08 Resp 18 10/27/22 08:08 BP 140/76 10/27/22 08:08 Pulse Ox 96 10/27/22 08:08 Labs 10/27/22 06:18 10/27/22 14:43 Labs: Laboratory Results - last 24 hr 10/25/22 10/25/22 10/27/22 06:05 06:05 06:18 WBC RBC Hgb Hct MCV MCH MCHC RDW Plt Count MPV Immature Gran % Neutrophils % Band Neutrophils % Lymphocytes % Monocytes % Eosinophils % Basophils % Nucleated RBC % Absolute Neutrophils Absolute Lymphocytes Absolute Monocytes Absolute Eosinophils Absolute Basophils RBC Morphology Sodium Potassium Chloride Carbon Dioxide Anion Gap BUN Creatinine Est GFR (CKD-EPI 2020) Glucose Calcium Magnesium 2.1 Urine Legionella Ag Negative Ur Strep pneumoniae Ag Negative 10/27/22 10/27/22 10/27/22 06:18 06:18 14:43 WBC 1.39 L* RBC 2.65 L Hgb 8.2 L Hct 24.0 L MCV 91 MCH 30.9 MCHC 34.2 RDW 13.8 Plt Count 51 L MPV 11.9 H Immature Gran % 0.0 Neutrophils % 61.0 Band Neutrophils % 6 Lymphocytes % 29.0 Monocytes % 2.0 Eosinophils % 2.0 Basophils % 0.0 Nucleated RBC % 0.0 Absolute Neutrophils 0.93 L Absolute Lymphocytes 0.40 L Absolute Monocytes 0.03 L Absolute Eosinophils 0.03 Absolute Basophils 0.00 RBC Morphology Normal Sodium 135 L Potassium 3.1 L 3.4 L Chloride 102 Carbon Dioxide 23.7 Anion Gap 9.3 BUN 13 Creatinine 0.9 Est GFR (CKD-EPI 2020) 89.62 Glucose 122 H Calcium 8.6 Magnesium Urine Legionella Ag Ur Strep pneumoniae Ag Imaging Abdomen CT scan report/results: report reviewed and image reviewed CT scan - pelvis: report reviewed and image reviewed
[2022-10-27] MEDS: Lidocaine 2% Jelly 6 ML SYR TP ×2 (16:31→19:16)
[2022-10-27] MEDS: metroNIDAZOLE 500 MG TAB PO ×2 (16:31→23:24)
[2022-10-27 16:33] VITALS: BP 142/74; PULSE 83; RESP 16; TEMP 37.3; O2SAT 96
[2022-10-27 17:29] LABS: Bilirubin Negative (Negative); Blood Moderate (Negative); Clarity Clear (Clear); Glucose Negative (Negative); Ketones Negative (Negative); Leukocyte Esterase Negative (Negative); Nitrite Negative (Negative); Specific Gravity 1.015 (1.005-1.025); Urobilinogen 0.2 mg/dL (Up to 0.2)
[2022-10-27 18:19] LABS: Bacteria Negative HPF (Negative); Crystals Negative HPF (Negative); Epithelial Cells Rare HPF (Negative); Other Cells Negative (Negative); WBC 0-2 HPF (0-5)
[2022-10-27 18:20] LABS: C & S Indicated? No; Mucus Trace (Negative)
[2022-10-27 18:28] LABS: C Diff PCR Negative (Negative)
[2022-10-27] MEDS: Psyllium PKT 1 EACH PO (19:16)
[2022-10-27] MEDS: Acetaminophen 325 MG TAB 650 MG PO (19:17)
[2022-10-27 19:59] VITALS: BP 154/76; PULSE 80; RESP 18; TEMP 37.5; O2SAT 96
[2022-10-27 23:23] VITALS: BP 123/68; PULSE 74; RESP 16; TEMP 36.5; O2SAT 96
[2022-10-28] MEDS: Lidocaine 2% Jelly 6 ML SYR TP ×3 (05:26→15:00)
[2022-10-28 06:19] LABS: HCT 24.6 % (40.0-50.0); HGB 8.1 g/dL (13.5-17.5); MCH 29.9 pg (27.0-33.0); MCHC 32.9 % (32.0-36.0); MCV 91 fL (80-95); MPV 11.1 fL (8.0-11.0); RBC 2.71 10^6/uL (4.36-5.78); RDW 13.7 % (11.8-14.1); RDW-SD 45.1 fL; WBC 4.02 10^3/uL (4.4-10.8)
[2022-10-28 06:40] LABS: Anion Gap 9.7 mmol/L (3-11); BUN 11 mg/dL (7-18); CO2 22.3 mmol/L (21.0-32.0); Calcium 8.5 mg/dL (8.5-10.1); Chloride 104 mmol/L (98-107); Estimated GFR 78.98 (mL/min/1.73m2); Glucose 122 mg/dL (74-106); Magnesium 1.8 mg/dL (1.8-2.4); Potassium 3.5 mmol/L (3.5-5.1); Sodium 136 mmol/L (136-145)
[2022-10-28 06:54] LABS: Absolute Eosinophil Count 0.04 10^3/uL (0.0-0.7); Absolute Lymphocyte Count 0.52 10^3/uL (1.2-3.4); Absolute Monocyte Count 0.16 10^3/uL (0.1-0.8); Bands % 4; Diff Comment Manual Differential; Platelet Count 69 10^3/uL (130-400); RBC Morphology Normal
[2022-10-28 06:57] LABS: Procalcitonin 1.4 ng/mL
[2022-10-28 08:04] VITALS: BP 135/74; PULSE 72; RESP 18; TEMP 36.4; O2SAT 97
[2022-10-28] MEDS: Psyllium PKT 1 EACH PO ×2 (08:30→20:50)
[2022-10-28] MEDS: Fluconazole 100 MG TAB 400 MG PO (08:31)
[2022-10-28] MEDS: Acyclovir 400 MG TAB PO ×2 (08:31→20:50)
[2022-10-28] MEDS: Allopurinol 100 MG TAB 200 MG PO (08:31)
[2022-10-28] MEDS: Potassium Chloride 10 MEQ CAPCR 20 MEQ PO (08:31)
[2022-10-28] MEDS: metroNIDAZOLE 500 MG TAB PO ×2 (08:35→16:35)
[2022-10-28] MEDS: Tamsulosin 0.4 MG CAPCR PO (10:15)
[2022-10-28] MEDS: CEFEPIME 2 GM in Normal Saline 100 ML IVPB ×2 (10:15→20:51)
--- NOTE | 2022-10-28 10:58 | W.PM.PROGNOT ---
Date of Service Date of service: 10/28/22 Time of Service: 10:58 Assessment and Plan Assessment and plan (1) Hemorrhoid thrombosis: Status: Acute Assessment and plan: Improved symptoms Continue with Lidocaine q4 hours as needed Hydrocortizone 2.5% 2 to 4 times a day as needed Sitz baths 4 x a day as needed Flagyl 500 mg 3 x a day for 7 days Discussed case with Cheo, his and son. They have a lot of questions and are worried about him going home today. 30 minutes spend face to face discussing home medications for his hemorrhoids. No follow up needed with surgery unless he has increase in symptoms Card with my name and our phone number provided to family Recommend getting the portal set up (2) Thrombocytopenia: Status: Chronic (3) Fever and neutropenia: Status: Acute Subjective Subjective Interval history since last seen: Mr. Freire is doing well today. The Lidocaine and sitz baths have helped a lot. He had one BM today which was formed and soft. NO fevers overnight Exam Const General: cooperative, comfortable and no acute distress Nutritional Appearance: overweight Orientation: alert and oriented x3 HENMT Head: normocephalic and atraumatic Resp Effort & Inspection: normal respiratory effort GI Other: decreased swelling of hemorrhoid Objective Last Vital Signs Temp 97.5 F L 10/28/22 08:04 Pulse 72 10/28/22 08:04 Resp 18 10/28/22 08:04 BP 135/74 10/28/22 08:04 Pulse Ox 97 10/28/22 08:04 Laboratory Results - last 24 hr 10/27/22 10/27/22 10/27/22 05:25 14:43 16:45 WBC RBC Hgb Hct MCV MCH MCHC RDW Plt Count MPV Immature Gran % Neutrophils % Band Neutrophils % Lymphocytes % Monocytes % Eosinophils % Basophils % Nucleated RBC % Absolute Neutrophils Absolute Lymphocytes Absolute Monocytes Absolute Eosinophils Absolute Basophils RBC Morphology Sodium Potassium 3.4 L Chloride Carbon Dioxide Anion Gap BUN Creatinine Est GFR (CKD-EPI 2020) Glucose Calcium Magnesium Procalcitonin Urine Color Yellow Urine Clarity Clear Urine pH 7.0 Ur Specific [place] 1.015 Urine Protein Negative Urine Ketones Negative Urine Blood Moderate H Urine Nitrite Negative Urine Bilirubin Negative Urine Urobilinogen 0.2 Ur Leukocyte Esterase Negative Urine RBC 3-5 H Urine WBC 0-2 Ur Epithelial Cells Rare Urine Crystals Negative Urine Bacteria Negative Urine Mucus Trace Urine Other Negative Ur Culture Indicated? No Urine Glucose Negative Stl C.difficile Tox PCR Negative 10/28/22 10/28/22 10/28/22 05:56 05:56 05:56 WBC 4.02 L RBC 2.71 L Hgb 8.1 L Hct 24.6 L MCV 91 MCH 29.9 MCHC 32.9 RDW 13.7 Plt Count 69 L MPV 11.1 H Immature Gran % 0.0 Neutrophils % 78.0 Band Neutrophils % 4 Lymphocytes % 13.0 Monocytes % 4.0 Eosinophils % 1.0 Basophils % 0.0 Nucleated RBC % 1.0 H Absolute Neutrophils 3.30 Absolute Lymphocytes 0.52 L Absolute Monocytes 0.16 Absolute Eosinophils 0.04 Absolute Basophils 0.00 RBC Morphology Normal Sodium 136 Potassium 3.5 Chloride 104 Carbon Dioxide 22.3 Anion Gap 9.7 BUN 11 Creatinine 1.0 Est GFR (CKD-EPI 2020) 78.98 Glucose 122 H Calcium 8.5 Magnesium 1.8 Procalcitonin 1.4 Urine Color Urine Clarity Urine pH Ur Specific [place] Urine Protein Urine Ketones Urine Blood Urine Nitrite Urine Bilirubin Urine Urobilinogen Ur Leukocyte Esterase Urine RBC Urine WBC Ur Epithelial Cells Urine Crystals Urine Bacteria Urine Mucus Urine Other Ur Culture Indicated? Urine Glucose Stl C.difficile Tox PCR PAWSS Pt Consumed Any Amount of Alcohol Within the Last 30 days OR had positive TONIO Upon Admission: No Time Spent with Patient Time Spent with Patient: 25-34 minutes Time was spent: preparing to see the patient(eg.review tests), counseling the patient and care coordination
[2022-10-28] MEDS: Insulin Aspart 300 UNITS/3 ML PEN SC (12:13)
--- NOTE | 2022-10-28 15:02 | W.PM.PROGNOT ---
Date of Service Date of service: 10/28/22 Time of Service: 15:02 Assessment and Plan Assessment and plan (1) Fever and neutropenia: Status: Acute Assessment and plan: Blood and urine cultures showing NGTD Chest is clear no sign of pneumonia. His ANC is now 3300 so precautions lifted. Procalcitonin 1.4, but again, no clear evidence of an infectious source. Will likely d/c in AM on a short course of levaquin. Continue cefepime and flagyl for now. (2) B-cell lymphoma: Status: Acute Assessment and plan: Underwent his first round of R CHOP chemotherapy on 10/18/2022. He has had quite a dramatic reaction with severe neutropenia. Dr. Bowman gave feedback to [facility] oncology provider. He was given neupogen after his chemotherapy and his ANC has rebounded significantly. (3) Diabetes mellitus: Status: Chronic Assessment and plan: Type 2 diabetes on no medications. Blood sugar was elevated at 232 on admission. Blood sugar 122 yesterday AM and today. Sensitive sliding scale ordered. (4) Gout: Status: Acute Assessment and plan: He has recurrent gout for which he takes allopurinol and as needed colchicine. Continue allopurinol, hold colchicine unless needed for acute gout (5) Hemorrhoid thrombosis: Status: Acute Assessment and plan: He does not seem to be improving w/ the proctofoam and licocaine topical gel. Dr Vasquez has evaluated. Maintain soft stool to prevent straining. (6) Acute urinary retention: Status: Acute Assessment and plan: on admission his CT scan showed no evidence for hydronephrosis or kidney stoness but simple renal cysts, however his bladder was distended. He has been having high post void residuals. Nursing initially was doing intermittent straight cath for residuals over 500 mL so a cardenas was placed. Urology not available until Sunday. Started flomax and will dc cardenas catheter. Monitor post-void residuals. (7) Acute hypokalemia: Status: Acute Assessment and plan: K 3.4 on admission and despite iv and oral replacement it went down to 3.1. Oral supplementation continued and is now 3.5. (8) Hypomagnesemia: Status: Acute Assessment and plan: repleted. monitor levels Subjective Subjective Patient reports: no new complaints, feels better, pain is less (hemorrhoidal pain with BMs), bowel movement and afebrile; denies nausea, vomiting or shortness of breath Exam Narrative Exam Narrative: Gen: sitting up in bed talking with his and son. States he is feeling much better. Lungs clear to auscultation Heart regular rate and rhythm Abdomen is distended but soft he has active bowel sounds throughout. There is no guarding or rebound tenderness. Cardenas catheter is draining clear yellow urine Objective Last Vital Signs Temp 36.4 C L 10/28/22 08:04 Pulse 72 10/28/22 08:04 Resp 18 10/28/22 08:04 BP 135/74 10/28/22 08:04 Pulse Ox 97 10/28/22 08:04 Laboratory Results - last 24 hr 10/27/22 10/27/22 10/28/22 05:25 16:45 05:56 WBC RBC Hgb Hct MCV MCH MCHC RDW Plt Count MPV Immature Gran % Neutrophils % Band Neutrophils % Lymphocytes % Monocytes % Eosinophils % Basophils % Nucleated RBC % Absolute Neutrophils Absolute Lymphocytes Absolute Monocytes Absolute Eosinophils Absolute Basophils RBC Morphology Sodium 136 Potassium 3.5 Chloride 104 Carbon Dioxide 22.3 Anion Gap 9.7 BUN 11 Creatinine 1.0 Est GFR (CKD-EPI 2020) 78.98 Glucose 122 H Calcium 8.5 Magnesium 1.8 Procalcitonin Urine Color Yellow Urine Clarity Clear Urine pH 7.0 Ur Specific [place] 1.015 Urine Protein Negative Urine Ketones Negative Urine Blood Moderate H Urine Nitrite Negative Urine Bilirubin Negative Urine Urobilinogen 0.2 Ur Leukocyte Esterase Negative Urine RBC 3-5 H Urine WBC 0-2 Ur Epithelial Cells Rare Urine Crystals Negative Urine Bacteria Negative Urine Mucus Trace Urine Other Negative Ur Culture Indicated? No Urine Glucose Negative Stl C.difficile Tox PCR Negative 10/28/22 10/28/22 05:56 05:56 WBC 4.02 L RBC 2.71 L Hgb 8.1 L Hct 24.6 L MCV 91 MCH 29.9 MCHC 32.9 RDW 13.7 Plt Count 69 L MPV 11.1 H Immature Gran % 0.0 Neutrophils % 78.0 Band Neutrophils % 4 Lymphocytes % 13.0 Monocytes % 4.0 Eosinophils % 1.0 Basophils % 0.0 Nucleated RBC % 1.0 H Absolute Neutrophils 3.30 Absolute Lymphocytes 0.52 L Absolute Monocytes 0.16 Absolute Eosinophils 0.04 Absolute Basophils 0.00 RBC Morphology Normal Sodium Potassium Chloride Carbon Dioxide Anion Gap BUN Creatinine Est GFR (CKD-EPI 2020) Glucose Calcium Magnesium Procalcitonin 1.4 Urine Color Urine Clarity Urine pH Ur Specific [place] Urine Protein Urine Ketones Urine Blood Urine Nitrite Urine Bilirubin Urine Urobilinogen Ur Leukocyte Esterase Urine RBC Urine WBC Ur Epithelial Cells Urine Crystals Urine Bacteria Urine Mucus Urine Other Ur Culture Indicated? Urine Glucose Stl C.difficile Tox PCR PAWSS Pt Consumed Any Amount of Alcohol Within the Last 30 days OR had positive TONIO Upon Admission: No Time Spent with Patient Time Spent with Patient: 25-34 minutes Time was spent: preparing to see the patient(eg.review tests), obtaining and/or reviewing separately otained hiistory, ordering medications,tests, procedures, referring, communicating with other health critical care specialist, indepentently interpreting results, counseling the patient and care coordination
[2022-10-28 15:34] VITALS: BP 156/105; PULSE 83; RESP 18; TEMP 36.6; O2SAT 98
[2022-10-28 23:23] VITALS: BP 150/77; PULSE 85; RESP 18; TEMP 37; O2SAT 97
[2022-10-29] MEDS: metroNIDAZOLE 500 MG TAB PO ×2 (00:50→08:05)
[2022-10-29 06:39] VITALS: BP 120/69; PULSE 69; RESP 18; TEMP 36.3; O2SAT 98
--- NOTE | 2022-10-29 06:51 | W.PM.DS.N ---
Date of service: 10/29/22 Time of Service: 09:02 DS: Diagnosis Discharge Diagnosis (1) Fever and neutropenia: Status: Acute Asessment and Plan: He had a low grade temperature elevation the day after admission and then no further elevations. His WBC count improved to 4.02 with an ANC of 3300. He will discharge on Levaquin 750mg daily for 3 days and flagyl 500mg TID for 7 days. (2) B-cell lymphoma: Status: Acute Asessment and Plan: Continue f/u and treatment plan per oncology. (3) Diabetes mellitus: Status: Chronic Asessment and Plan: Diet controlled. (4) Gout: Status: Acute Asessment and Plan: Allopurinol daily. PRN colchicine. (5) Hemorrhoid thrombosis: Status: Acute Asessment and Plan: Dr Cornejo with general surgery evaluated patient. No surgical intervention was pursued. The hemorrhoid pain was controlled with topical lidocaine gel and hydrocortison cream. Both of these were prescribed for ongoing home use as needed. The size of the hemorrhoid diminished significantly; Procotofoam administered and was prescribed. Maintain soft BM to prevent straining. Metamucil BID. (6) Acute urinary retention: Status: Acute Asessment and Plan: The day after admission he was noted to have urinary retention and a cardenas catheter was inserted. The day before discharge he was given flomax 0.4mg and the cardenas was discontinued. He has since been voiding normal amounts w/o difficulty and w/o signs/symptoms of retention. He will continue on flomax for 5 more days. This appears to be an acute, self-limiting problem. No previous issues had been noted. (7) Acute hypokalemia: Status: Acute Asessment and Plan: Corrected. (8) Hypomagnesemia: Status: Acute Asessment and Plan: Corrected. Discharge Plan Disposition Patient Disposition: Home W/Home Health Services Condition: Good Discharge Details Reason For Visit: Nuetropenic Fever Admit Date/Time: 10/25/22 07:41 Admit Provider: Johnny Canela Attending Provider: Johnny Canela Primary Care Provider: Frederick Meade Hospital Course Hospital Course: This is a 72-year-old man recently diagnosed with large B-cell lymphoma.? On 09/22/2022 he presented to the emergency room with neck swelling.? He was transferred to [facility], (no tertiary care beds available locally).? He had a 3-day hospital stay during which time he had biopsies taken which were negative for malignancy.? He has since followed up with Dr. Abdullahi Ramírez for further biopsies of his right neck lymphadenopathy.? These came back positive for B-cell lymphoma.? On 10/18/2022 he underwent his first round of HOP chemotherapy.? He did receive the Neulasta onpro upon completion.? He felt well for the ensuing 4 days but the evening before admission he began to have fever and chills.? He had some abdominal cramping for which he took some MiraLAX and had a large bowel movement.? He had difficulty urinating which has since dissipated.? His was very concerned and brought him to the emergency room. In the emergency room he had a temp of 38.8 other vitals were otherwise stable.? His chest x-ray showed no infiltrate, his urinalysis was clear.? His white count showed only 170 white cells with an ANC of 20.? Given his fever and profound neutropenia he is admitted for IV antibiotics and reverse precautions.? Admitting hospitalist spoke with Dr. Magdaleno, hematology oncology.? He recommended a CT of the abdomen because of his abdominal discomfort.? He recommended cefepime and fluconazole.? He was admitted to acute care status.? Planned monitoring until his ANC is greater than 500 and he is stable. See Diagnosis PCP f/u in 1-2 weeks. Home Meds and New Rx's Prescriptions: New magnesium hydroxide [Milk of Magnesia] 400 mg/5 mL Suspension 30 ml PO DAILY PRN PRNQty: 0 0RF Proctofoam HC 1-1 % Foam 0 g VA TID Qty: 0 0RF tamsulosin 0.4 mg Capsule 0.4 mg PO HS Qty: 5 0RF Continued All Day Allergy (cetirizine) 10 mg capsule 10 mg PO DAILY PRN ferrous sulfate [Feosol] 325 mg (65 mg iron) tablet See Rx Instructions PO DAILY Rx Instructions: 650 mg PO daily; oxycodone 10 mg tablet 10 mg PO QHS MDD 1 tab PRN (Reason: pain) Qty: 30 0RF Patient Comments: not taking currently amlodipine 5 mg tablet 5 mg PO DAILY Qty: 30 2RF aspirin [Aspirin Low-Strength] 81 MG tablet,chewable 81 mg PO DAILY allopurinol 100 mg tablet 200 mg PO DAILY Qty: 180 3RF metronidazole 500 mg tablet 500 mg PO TID 7 Days Qty: 21 0RF hydrocortisone 2.5 % cream with perineal applicator 1 applic VA QD-BID PRN (Reason: hemorrhoids) Qty: 30 3RF lidocaine HCl [Glydo] 2 % jelly in applicator 5 ml topical ONCE Qty: 125 3RF Rx Instructions: as a single dose- apply to rectum levofloxacin 750 mg tablet 750 mg PO DAILY 3 Days Qty: 3 0RF Metamucil 3.4 gram/5.4 gram powder 1 tbsp PO BID Qty: 660 0RF Rx Instructions: mix into at least 8 oz of water or juice before administering prochlorperazine maleate 10 mg tablet 10 mg PO PRN PRN Patient Comments: TAKE ONE TABLET BY MOUTH EVERY 6 HOURS NEEDED FOR NAUSEA acyclovir 400 mg tablet 400 mg PO BID Discontinued amoxicillin-pot clavulanate 875-125 mg tablet 1 tab PO DAILY Patient Comments: will finish on 10/01/22 No Action (DME) blood-glucose meter [KiioTouch UltraMini] 1 EACH kit 1 ea Miscellaneous DAILY Qty: 1 (DME) blood sugar diagnostic Strip See Dose Instructions .ROUTE .MEDSUPPLY Qty: 100 3RF Dose Instruction: As directed Rx Instructions: test daily (DME) lancets Misc 1 ea Intradermal DAILY Qty: 100 3RF Rx Instructions: test daily Discharge Instructions Instructions: Hemorrhoids (ED) Activity:: Activity as Tolerated Equipment/Supplies:: No Equipment Needed Diet:: As Tolerated Discharge Orders Discharge Orders: Discharge Order (Routine); Ordered 10/29/22 Ordered By: Salazar Chaves DS: Summary Time Spent with Patient providing and/or coordinating discharge services: Greater than 30 minutes Status at Discharge Functional status at discharge: independent ambulation Overall status at discharge: patient is progressing back to baseline Mental Status: mental status grossly normal Speech and Movement: speech and movement normal Mood: congruent mood Affect: normal affect Exam Narrative Exam Narrative: Gen: sitting up in chair. present. States he is feeling much better. Hemorroid is shrinking and significantly less uncomfortable. Lungs clear to auscultation Heart regular rate and rhythm Abdomen is distended but soft he has active bowel sounds throughout. There is no guarding or rebound tenderness. Psych: affect appropriate. Speech and appearance normal. Good insight. Psych Mental Status: mental status grossly normal Speech and Movement: speech and movement normal Mood: congruent mood Affect: normal affect DS: Data Vitals/I&O Vitals and I&O: Vital Signs Temperature 36.3 C L 10/29/22 06:39 Temperature Source Tympanic 10/29/22 06:39 Pulse 69 10/29/22 06:39 Pulse Rhythm Regular 10/28/22 21:59 Pulse 93 H 10/25/22 07:46 Respiratory Rate 18 10/29/22 06:39 Respiratory Effort Normal 10/28/22 21:59 Respiratory Depth Normal 10/28/22 21:59 Respiratory Pattern Normal 10/28/22 21:59 Blood Pressure 120/69 10/29/22 06:39 Blood Pressure Mean 70 10/25/22 07:45 Pulse Oximetry 98 10/29/22 06:39 Oxygen Delivery Method Room Air 10/29/22 06:39 Oxygen Flow Rate 0 10/29/22 06:39 Pain Level 0 10/28/22 15:34 Comment bp relayed over radio 10/28/22 15:34 Intake & Output 10/28/22 10/28/22 10/29/22 11:59 23:59 11:59 Intake Total 600 / 1560 960 / 1560 100 / 100 Output Total 2150 / 4375 2225 / 4375 1150 / 1150 Balance -1550 / -2815 -1265 / -2815 -1050 / -1050 Weight 91.6 kg Intake: IV 100 / 110 10 / 110 100 / 100 Oral 500 / 1450 950 / 1450 Output: Urine 2150 / 4375 2225 / 4375 1150 / 1150 Other: Urine Color Yellow Yellow Yellow Urine Appearance Clear Clear Clear Urine Odor Normal Normal Stool Size Small Small Stool Characteristics Liquid Soft Voiding Methods Urinal Urinal Data Completed and Pending Labs on day of discharge: Labs from last 24 hours 10/28/22 10/28/22 05:56 05:56 WBC 4.02 L RBC 2.71 L Hgb 8.1 L Hct 24.6 L MCV 91 MCH 29.9 MCHC 32.9 RDW 13.7 Plt Count 69 L MPV 11.1 H Immature Gran % 0.0 Neutrophils % 78.0 Band Neutrophils % 4 Lymphocytes % 13.0 Monocytes % 4.0 Eosinophils % 1.0 Basophils % 0.0 Nucleated RBC % 1.0 H Absolute Neutrophils 3.30 Absolute Lymphocytes 0.52 L Absolute Monocytes 0.16 Absolute Eosinophils 0.04 Absolute Basophils 0.00 RBC Morphology Normal Procalcitonin 1.4 Preliminary micro results at discharge 10/25/22 06:15 Blood Culture - Preliminary Blood NO GROWTH 72 HOURS 10/25/22 05:45 Blood Culture - Preliminary Blood NO GROWTH 72 HOURS 10/27/22 16:45 Urine Culture - Preliminary Urine - Cath Cardenas Indwelling PFSH All Active Problems Thrombocytopenia (Chronic) Hypomagnesemia (Acute) Acute hypokalemia (Acute) Acute urinary retention (Acute) Hemorrhoid thrombosis (Acute) Fever and neutropenia (Acute) B-cell lymphoma (Acute) Diabetes mellitus (Chronic 07/03/12) BS deterioration due to dietary indiscretion Gout (Acute 12/24/07) Medical History Actinic keratosis Airway compromise Anemia EGD-HH, ESOPH INFLAMMATION; 11/25 COLO-DIVERTICULOSIS, TINY RECTAL POLYP c-scope 2012: hyperpl. polyp Cataract (07/03/12) Diverticulosis of colon without diverticulitis Essential hypertension (12/27/12) Fracture of phalanx of finger History of tobacco use Lymphadenitis Lymphadenopathy Nystagmus Overweight regular exercise/dietary discretion advised Pain Polyp of colon tiny rectal hyperplastic polyp Prostate cancer (10/05/14) 2014 radiation RX/lupron SOBOE (shortness of breath on exertion) likely due to reduced 02 carrying capacity due to anemia Family History Mother , AGE 38 Alcohol abuse Father , AGE 76 Diabetes Sister Diabetes Maternal Grandfather , age 80 Stroke Maternal Grandmother , age 88 Diabetes Social History Smoking/Tobacco Use Status: Former Tobacco Use Quit Date: 02/20/84 Smokeless tobacco user: chewing tobacco (former use) Second Hand Exposure: No Smoking risk assessment performed?: Yes Alcohol Intake: current Alcohol Intake frequency: a few times a month Alcohol type: beer Drug use: Never Substance use type: does not use Caregiver/Support person: No Household members: spouse Housing: apartment Communication Needs: Corrective Lenses Do you need help understanding health information?: Never Pets and animals: No Sexually active: No Do you think of yourself as: straight/heterosexual Current gender identity: male What is your relationship status?: How often do you talk on the phone with friends or family?: three or more times per week How often do you get together with friends or relatives?: three or more times per week How often do you attend gnosticism or worship services?: 1-3 times per year Do you belong to any clubs or organized social groups?: yes Panel score (0-1 are the most socially isolated patients): 3 What type of physical activity do you participate in: walking and bicycling Duration: 60-90 minutes/day Frequency: 3-4 times per week Lily/Presybeterian: Episcopalian Special lily needs: No Seatbelt use: always Helmet use: Yes Helmet use: always Drive intox or ride w/intox hog driver: No Do you feel safe at home: Yes Do you feel safe in your relationship?: Yes Time Spent with Patient Time Spent with Patient: 45-69 minutes Time was spent: preparing to see the patient(eg.review tests), obtaining and/or reviewing separately otained hiistory, referring, communicating with other health geriatric personal care aide, indepentently interpreting results, counseling the patient and care coordination
[2022-10-29] MEDS: Psyllium PKT 1 EACH PO (08:05)
[2022-10-29] MEDS: Acyclovir 400 MG TAB PO (08:05)
[2022-10-29] MEDS: Fluconazole 100 MG TAB 400 MG PO (08:06)
[2022-10-29] MEDS: Allopurinol 100 MG TAB 200 MG PO (08:06)
[2022-10-29] MEDS: Insulin Aspart 300 UNITS/3 ML PEN SC (08:09)
--- NOTE | 2022-10-29 09:49 | PDOC.HHF2F_ITS ---
Home Health Referral Home Health Orders Clinical synopsis of why skilled professionals are needed: Mr Freire has B-cell lymphoma and after receiving his first round of chemotherapy developed a fever. He presented to the ED and found to be neutropenic. He had been given Neulasta onpro after the round of chemotherapy. He was placed on antibiotics and his fever did not recur. No source of infectious process found. He also suffered from a large thrombosed hemorrhoid that is improving with proctofoam, lidocaine gel and hydrocortisone cream; all prn. He was discharged on a 3 day course of levaquin and a 7 day course of flagyl. Medical diagnosis necessitation home health referral: B-cell lymphoma. Anemia Neutorpenic fever; resolved. Large thrombosed hemorroid. Registered Nurse: Check all that apply Instruct on new or changed medication(s)/assess compliance: Ordered Home Bound Status Assistance of another person (Describe assistance and medical necessity): Standby assist when ambulating in unfamiliar territory d/t deconditioned state from hospitalization, chemotherapy and anemia. Describe why leaving home would require a considerable and taxing effort: Requires frequent rest periods Encounter Date and Reason: I certify that a FTF encounter for this patient was performed on October 29, 2022 and that such encounter was related to the primary reason the patient requires home health services. The encounter was conducted in the following manner: * By me as the certifying physician, PROGRAM DEVELOPMENT MANAGER, PA or * By an inpatient physician, PROGRAM DEVELOPMENT MANAGER or PA during an inpatient stay who communicated findings to me, Certification And Authentication I certify that I composed the above information based on my clinical judgment relating to this patient's medical condition and, if applicable, clinical findings communicated to me by the NPP or inpatient physician who performed the FTF encounter. Name of Provider that will be monitoring home health services: Salazar Chaves
[2022-10-29] MEDS: CEFEPIME 2 GM in Normal Saline 100 ML IVPB (10:10)
[2022-10-29] MEDS: Heparin 500 UNITS/5 ML SYRINGE IVP (11:23)
--- NOTE | 2022-10-29 12:10 | PDOC.CMDIS ---
Date of service: 10/29/22 Time of Service: 12:11 LACE Index Scoring Tool Questions: Length of Stay (in days): 4 - 6 Was the patient admitted via the E.D.?: Yes Comorbidities: Diabetes w/o Complication and Metastatic Solid Tumor (B-cell lymphoma) E.D. Visits: 3 Answers: Total Score: 15 Risk of Readmission: High Risk Care Management Discharge Plan Reason for Hospitalization: Neutropenic Fever Discharge Plan: Cheo is discharged home with New [facility] RN services. Cheo will follow up with community providers and discharge plan of care as instructed. He is transported home via private vehicle with . Patient/Family Education Needs: Review discharge instructions, limitations, medications and plan to follow up with community providers. Discuss ask me three and goals of self care. Services Needed at Discharge: Home Health Care Services ([facility] RN; Following PCP is NAVNEET Izquierdo at [facility])
== END 2022-10-29 11:41 | disposition home health service (06) | DRG 809 ==
LOC: ER 07:43 → MS 09:23
PROVIDERS: Surgery; Admitting Provider Internal Medicine; Emergency Provider Emergency Medicine Emergency Medical Services; PCP Family Medicine; Visit Provider Internal Medicine
DX: D70.1 Agranulocytosis secondary to cancer chemotherapy (principal); C85.10 Unspecified B-cell lymphoma, unspecified site; T45.1X5A Adverse effect of antineoplastic and immunosuppressive drugs, initial encounter; R50.81 Fever presenting with conditions classified elsewhere; E11.9 Type 2 diabetes mellitus without complications; M10.9 Gout, unspecified; R33.9 Retention of urine, unspecified; D64.9 Anemia, unspecified; E83.42 Hypomagnesemia; E87.6 Hypokalemia; D69.6 Thrombocytopenia, unspecified; K57.30 Diverticulosis of large intestine without perforation or abscess without bleeding; I10 Essential (primary) hypertension; Z87.891 Personal history of nicotine dependence; E66.3 Overweight; Z68.32 Body mass index [BMI] 32.0-32.9, adult; Z85.46 Personal history of malignant neoplasm of prostate; Z95.828 Presence of other vascular implants and grafts; A08.4 Viral intestinal infection, unspecified; K64.5 Perianal venous thrombosis; K59.03 Drug induced constipation
CPT/HCPCS: 36410; 36415; 80048; 80053; 84145; 87040; 87449; 87493; 87637; 93005; 96361; 96365; 96366; 96368; 99223; 99232; 99285; 71045; 74177; 81003; 81015; 83605; 83735; 84132; 84484; 85025; 85610; 87086; 87899; 93010; 94667; 94668; 99233; 99239; 99284; J2543; J3480; J3490; Q9967

== ENCOUNTER 2022-11-15 11:30 | Outpatient (RCR) | payer MEDICARE, SELFPAY ==
[2022-11-08] MEDS: Normal Saline Flush 10 ML SYR IVP (08:38)
[2022-11-08 09:16] LABS: Abs Immature Grans 0.22 10^3/uL (0.0-0.06); Absolute Basophil Count 0.08 10^3/uL (0.0-0.2); Absolute Eosinophil Count 0.04 10^3/uL (0.0-0.7); Absolute Monocyte Count 1.32 10^3/uL (0.1-0.8); Basophils % 0.8; Eosinophils % 0.4; HGB 10.6 g/dL (13.5-17.5); Immature Grans % 2.3; Lymphocytes % 9.4; MCH 31.1 pg (27.0-33.0); MCHC 33.1 % (32.0-36.0); MCV 94 fL (80-95); MPV 9.5 fL (8.0-11.0); Monocytes % 13.8; Neutrophils % 73.3; Platelet Count 458 10^3/uL (130-400); RBC 3.41 10^6/uL (4.36-5.78); RDW 15.7 % (11.8-14.1); RDW-SD 53.2 fL; WBC 9.56 10^3/uL (4.4-10.8)
[2022-11-08 09:36] LABS: ALT 23 U/L (16-63); AST 13 U/L (15-37); Albumin 2.9 g/dL (3.4-5.0); Alkaline Phosphatase 97 U/L (46-116); Anion Gap 7.1 mmol/L (3-11); BUN 12 mg/dL (7-18); Bilirubin, Total 0.1 mg/dL (0.2-1.0); CO2 26.9 mmol/L (21.0-32.0); Calcium 9.2 mg/dL (8.5-10.1); Chloride 101 mmol/L (98-107); Estimated GFR 78.98 (mL/min/1.73m2); Glucose 251 mg/dL (74-106); LDH 206 U/L (85-227); Sodium 135 mmol/L (136-145); Total Protein 6.4 g/dL (6.4-8.2)
[2022-11-15] MEDS: Normal Saline Flush 10 ML SYR IVP (11:48)
[2022-11-15] MEDS: Heparin 500 UNITS/5 ML SYRINGE IV (11:49)
[2022-11-15 12:13] LABS: Abs Immature Grans 0.26 10^3/uL (0.0-0.06); HCT 28.6 % (40.0-50.0); HGB 9.7 g/dL (13.5-17.5); MCH 31.6 pg (27.0-33.0); MCHC 33.9 % (32.0-36.0); MCV 93 fL (80-95); MPV 10.8 fL (8.0-11.0); Platelet Count 154 10^3/uL (130-400); RBC 3.07 10^6/uL (4.36-5.78); RDW 15.4 % (11.8-14.1); WBC 6.41 10^3/uL (4.4-10.8)
[2022-11-15 12:29] LABS: ALT 25 U/L (16-63); AST 7 U/L (15-37); Albumin 2.6 g/dL (3.4-5.0); Alkaline Phosphatase 148 U/L (46-116); BUN 13 mg/dL (7-18); Bilirubin, Total 0.4 mg/dL (0.2-1.0); CREATININE 1.1 mg/dL (0.70-1.30); Calcium 8.7 mg/dL (8.5-10.1); Chloride 98 mmol/L (98-107); Estimated GFR 70.44 (mL/min/1.73m2); Glucose 241 mg/dL (74-106); Sodium 131 mmol/L (136-145); Total Protein 5.8 g/dL (6.4-8.2)
[2022-11-15 12:30] LABS: Absolute Neutrophil Count 5.32 10^3/uL (1.2-6.7); Bands % 0
[2022-11-15 12:31] LABS: Absolute Lymphocyte Count 0.45 10^3/uL (1.2-3.4); Absolute Monocyte Count 0.64 10^3/uL (0.1-0.8); Atypical Lymphocytes % 0; Diff Comment Manual Differential; RBC Morphology Normal
== END 2022-11-18 23:59 | disposition home or self-care (01) ==
LOC: INF 11:30
PROVIDERS: PCP Family Medicine; Visit Provider Internal Medicine Hematology & Oncology
DX: C83.38 Diffuse large B-cell lymphoma, lymph nodes of multiple sites (principal); D50.9 Iron deficiency anemia, unspecified
CPT/HCPCS: 36591; 80053; 83615; 85025

== ENCOUNTER 2022-11-15 12:47 | Inpatient (IN) | payer MEDICARE, SELFPAY ==
[2022-11-15] VITALS (49 sets, daily range): BP systolic 109–165; BP diastolic 52–75; PULSE 95–123; RESP 11–29; TEMP 36.6–37.2; O2SAT 82–97
--- NOTE | 2022-11-15 12:45 | RT.EKG_ITS ---
APPROVED REPORT Exam: Resting ECG Reason for Exam: Tachacardia Patient Location: E HR:99 bpm ECG Measurements Heart Rate 99 AXIS DE 166 P 69 QRSd 92 QRS 56 QT 330 T -68 QTc 423 Conclusion Sinus rhythm...normal P axis, V-rate 60- 99 Repol abnrm suggests ischemia, anterolateral...ST dep, T neg, I aVL V2-V6
--- NOTE | 2022-11-15 13:00 | DI.RAD_ITS ---
Exam(s) XR CHEST 2V PA LATERAL EXAM: XR CHEST 2V PA LATERAL CLINICAL HISTORY: fever, on chemo TECHNIQUE: 2D digital imaging was performed of the chest. Images were obtained. PA and lateral v iews were obtained. COMPARISON: CR,XR XR PORTABLE CHEST AP from 10/25/2022 FINDINGS: MEDIASTINUM: Normal. HEART: Normal. PULMONARY VASCULATURE: Normal. LUNGS: Clear. PLEURAL SPACE: No pleural effusion or pneumothorax. BONE:Within normal limits for the patient's age. OTHER FINDINGS:There is a right-sided port. The tip is stable in position. IMPRESSION: No acute pulmonary findings. DATA REPOSITORY: RADIATION DOSE DELIVERED:
--- NOTE | 2022-11-15 13:20 | W.ED.GENAD ---
Discharge Plan Disposition Patient Disposition: Admit to [facility] Condition: Serious Discharge Details Clinical Impression: Rigors, SIRS (systemic inflammatory response syndrome), Hypokalemia, Hyponatremia Primary Care Provider: Frederick Meade ED Provider: Barrie Gil [place] Meds and New Rx's Prescriptions: No Action All Day Allergy (cetirizine) 10 mg capsule 10 mg PO DAILY PRN tamsulosin 0.4 mg capsule 0.4 mg PO HS Qty: 90 3RF ferrous sulfate [Feosol] 325 mg (65 mg iron) tablet See Rx Instructions PO DAILY Rx Instructions: 650 mg PO daily; oxycodone 10 mg tablet 10 mg PO QHS MDD 1 tab PRN (Reason: pain) Qty: 30 0RF Patient Comments: not taking currently amlodipine 5 mg tablet 5 mg PO DAILY Qty: 30 2RF aspirin [Aspirin Low-Strength] 81 MG tablet,chewable 81 mg PO DAILY (DME) blood-glucose meter [[email or web address] UltraMini] 1 EACH kit 1 ea Miscellaneous DAILY Qty: 1 allopurinol 100 mg tablet 200 mg PO DAILY Qty: 180 3RF (DME) blood sugar diagnostic Strip See Dose Instructions .ROUTE .MEDSUPPLY Qty: 100 3RF Dose Instruction: As directed Rx Instructions: test daily (DME) lancets Misc 1 ea Intradermal DAILY Qty: 100 3RF Rx Instructions: test daily hydrocortisone 2.5 % cream with perineal applicator 1 applic PA QD-BID PRN (Reason: hemorrhoids) Qty: 30 3RF lidocaine HCl [Glydo] 2 % jelly in applicator 5 ml topical ONCE Qty: 125 3RF Rx Instructions: as a single dose- apply to rectum Metamucil 3.4 gram/5.4 gram powder 1 tbsp PO BID Qty: 660 0RF Rx Instructions: mix into at least 8 oz of water or juice before administering prochlorperazine maleate 10 mg tablet 10 mg PO PRN PRN Patient Comments: TAKE ONE TABLET BY MOUTH EVERY 6 HOURS NEEDED FOR NAUSEA acyclovir 400 mg tablet 400 mg PO BID Proctofoam HC 1-1 % Foam 0 g PA TID Qty: 0 0RF Medical Decision Making 1326??72-year-old male with history of B-cell lymphoma, on second round of chemotherapy, here with what appears to be rigors this morning, fatigued with decreased energy yesterday and today. Patient is mildly tachycardic and normotensive. Concern for potential adverse reaction to chemotherapy including neutropenia. Patient had outpatient labs performed earlier today. I reviewed these and white blood cell count is normal. He does have low absolute lymphocytes. Patient also noted to be hypokalemic at 3.0 and mildly hypernatremic at 131. I will treat hypokalemia with potassium chloride. We will obtain urinalysis and chest x-ray as well as blood cultures and lactate. Consider consider. Screening EKG was reviewed and interpreted by me: Please see report, sinus rhythm [address] depression noted anterior lateral. Depressions were present on prior EKG 10/25/2022. -- X-ray reviewed and interpreted by radiology: Negative. Labs reviewed: Lactate is elevated. Patient meets SIRS criteria. I have ordered lactated Ringer's 1 L IV. Unclear source of infection at this point. Plan to treat for presumed bacteremia with cefepime IV. I called and spoke with the patient's oncologist, discussed ED presentation and course, she agrees with treatment plan to admit patient. I called and spoke with Dr. Chaves, on-call hospitalist, discussed ED presentation and course, he will admit the patient. Care transition at time of admission. Lab Data Lab results reviewed: Yes I reviewed the patient's lab results. Labs: 11/15/22 14:00 Blood Blood Culture - Pending 11/15/22 13:38 Blood Blood Culture - Pending Laboratory Tests Range/Units 11/15/22 11/15/22 11/15/22 13:38 13:38 13:45 WBC (4.4-10.8) 10^3/uL 7.42 RBC (4.36-5.78) 10^6/uL 3.33 L Hgb (13.5-17.5) g/dL 10.3 L Hct (40.0-50.0) % 31.1 L MCV (80-95) fL 93 MCH (27.0-33.0) pg 30.9 MCHC (32.0-36.0) % 33.1 RDW (11.8-14.1) % 15.4 H Plt Count (130-400) 10^3/uL 157 MPV (8.0-11.0) fL 11.3 H Immature Gran % 0.0 Neutrophils % 64.0 Band Neutrophils % 0 Lymphocytes % 6.0 Atypical Lymphs % 7 Monocytes % 17.0 Eosinophils % 2.0 Basophils % 0.0 Metamyelocytes % 3 Myelocytes % 1 Nucleated RBC % (0.0-0.3) % 0.0 Absolute Neutrophils (1.2-6.7) 10^3/uL 4.75 Absolute Lymphocytes (1.2-3.4) 10^3/uL 0.96 L Absolute Monocytes (0.1-0.8) 10^3/uL 1.26 H Absolute Eosinophils (0.0-0.7) 10^3/uL 0.15 Absolute Basophils (0.0-0.2) 10^3/uL 0.00 RBC Morphology Normal VBG Lactate (0.6-1.4) mmol/L 2.6 H* Urine Color (Yellow) Yellow Urine Clarity (Clear) Clear Urine pH (5-8) 6.0 Ur Specific [place] (1.005-1.025) 1.020 Urine Protein (Negative) mg/dL 30 H Urine Ketones (Negative) mg/dL Negative Urine Blood (Negative) Negative Urine Nitrite (Negative) Negative Urine Bilirubin (Negative) Negative Urine Urobilinogen (Up to 0.2) mg/dL 0.2 Ur Leukocyte Esterase (Negative) Negative Urine RBC (0-2) HPF Negative Urine WBC (0-5) HPF Negative Ur Epithelial Cells (Negative) HPF Negative Urine Crystals (Negative) HPF Negative Urine Bacteria (Negative) HPF Rare Urine Casts (Negative) LPF Negative Urine Mucus (Negative) Trace Urine Other (Negative) Negative Ur Culture Indicated? No Urine Glucose (Negative) mg/dL Negative COVID-19 Source SARS-CoV-2 (PCR) (Negative) Range/Units 11/15/22 14:00 WBC (4.4-10.8) 10^3/uL RBC (4.36-5.78) 10^6/uL Hgb (13.5-17.5) g/dL Hct (40.0-50.0) % MCV (80-95) fL MCH (27.0-33.0) pg MCHC (32.0-36.0) % RDW (11.8-14.1) % Plt Count (130-400) 10^3/uL MPV (8.0-11.0) fL Immature Gran % Neutrophils % Band Neutrophils % Lymphocytes % Atypical Lymphs % Monocytes % Eosinophils % Basophils % Metamyelocytes % Myelocytes % Nucleated RBC % (0.0-0.3) % Absolute Neutrophils (1.2-6.7) 10^3/uL Absolute Lymphocytes (1.2-3.4) 10^3/uL Absolute Monocytes (0.1-0.8) 10^3/uL Absolute Eosinophils (0.0-0.7) 10^3/uL Absolute Basophils (0.0-0.2) 10^3/uL RBC Morphology VBG Lactate (0.6-1.4) mmol/L Urine Color (Yellow) Urine Clarity (Clear) Urine pH (5-8) Ur Specific [place] (1.005-1.025) Urine Protein (Negative) mg/dL Urine Ketones (Negative) mg/dL Urine Blood (Negative) Urine Nitrite (Negative) Urine Bilirubin (Negative) Urine Urobilinogen (Up to 0.2) mg/dL Ur Leukocyte Esterase (Negative) Urine RBC (0-2) HPF Urine WBC (0-5) HPF Ur Epithelial Cells (Negative) HPF Urine Crystals (Negative) HPF Urine Bacteria (Negative) HPF Urine Casts (Negative) LPF Urine Mucus (Negative) Urine Other (Negative) Ur Culture Indicated? Urine Glucose (Negative) mg/dL COVID-19 Source Nasal/Nares SARS-CoV-2 (PCR) (Negative) Negative HPI General Mode of arrival: ambulatory. Date/Time Provider Initiated Documentation: 11/15/22 13:13. Limitations to Documentation: no limitations. Information obtained by: patient. HPI Narrative: 72yo male with history of B-cell lymphoma, on second round of chemotherapy, here with chills. Patient was being seen today in follow-up at cancer treatment center and noted to be shaky. Patient states that since yesterday he has been feeling fatigued and generally unwell. He developed shaking chills today. He has no associated cough. No rash. No swelling. He does note frequent bowel movements, approximately 7, yesterday. Denies diarrhea or bloody stool. He denies abdominal pain. Related Data Home Medications Medication Instructions Recorded Confirmed aspirin 81 mg chewable tablet 81 mg PO DAILY 06/24/12 11/15/22 (Aspirin Low-Strength) blood-glucose meter ([employer] ##1 07/31/16 11/11/22 UltraMini kit) cetirizine 10 mg capsule (All Day 10 mg PO DAILY PRN 01/16/18 11/15/22 Allergy (cetirizine)) ferrous sulfate 325 mg (65 mg See Rx Instructions PO DAILY 03/12/20 11/15/22 iron) tablet (Feosol) allopurinol 100 mg tablet 200 mg PO DAILY #180 tab-caps 06/14/22 11/15/22 blood sugar diagnostic #100 ea 07/10/22 11/11/22 lancets #100 ea 07/10/22 11/11/22 amlodipine 5 mg tablet 5 mg PO DAILY #30 tabs 10/05/22 11/15/22 oxycodone 10 mg tablet 10 mg PO QHS PRN pain #30 tabs 10/05/22 11/15/22 acyclovir 400 mg tablet 400 mg PO BID 10/25/22 11/15/22 prochlorperazine maleate 10 mg 10 mg PO PRN PRN 10/25/22 11/15/22 tablet hydrocortisone 2.5 % topical cream 1 applic PA QD-BID PRN hemorrhoids 10/28/22 11/15/22 with perineal applicator #30 grams lidocaine HCl 2 % mucosal jelly in 5 ml topical ONCE #125 mL 10/28/22 11/15/22 applicator (Glydo) psyllium husk 3.4 gram/5.4 gram 1 tbsp PO BID #660 grams 10/28/22 11/15/22 oral powder (Metamucil) hydrocortisone 1 %-pramoxine 1 % 0 g PA TID #0 grams 10/29/22 11/15/22 rectal foam (Proctofoam HC) tamsulosin 0.4 mg capsule 0.4 mg PO HS #90 caps 11/09/22 11/15/22 Previous Rx's Medication Instructions Recorded allopurinol 100 mg tablet 200 mg PO DAILY #180 tab-caps 06/14/22 blood sugar diagnostic #100 ea 07/10/22 lancets #100 ea 07/10/22 amlodipine 5 mg tablet 5 mg PO DAILY #30 tabs 10/05/22 oxycodone 10 mg tablet 10 mg PO QHS PRN pain #30 tabs 10/05/22 hydrocortisone 2.5 % topical cream 1 applic PA QD-BID PRN hemorrhoids 10/28/22 with perineal applicator #30 grams lidocaine HCl 2 % mucosal jelly in 5 ml topical ONCE #125 mL 10/28/22 applicator (Glydo) psyllium husk 3.4 gram/5.4 gram 1 tbsp PO BID #660 grams 10/28/22 oral powder (Metamucil) hydrocortisone 1 %-pramoxine 1 % 0 g PA TID #0 grams 10/29/22 rectal foam (Proctofoam HC) tamsulosin 0.4 mg capsule 0.4 mg PO HS #90 caps 11/09/22 Allergies Allergy/AdvReac Type Severity Reaction Status Date / Time No Known Allergies Allergy Verified 11/09/22 13:10 General Stated Complaint: GenMedical BENJI: 3 Review of Systems All systems reviewed & are unremarkable except as noted in HPI and below Constitutional Constitutional: Reports as per HPI, Reports chills, Reports fatigue and Reports lethargy Cardiovascular Cardiovascular: Denies chest pain Endocrine Endocrine: Reports fatigue PFSH All Active Problems (Updated 11/15/22 @ 16:42 by Barrie Gil MD) Rigors (Acute) SIRS (systemic inflammatory response syndrome) (Acute) Hypokalemia (Acute) Hyponatremia (Acute) Urinary retention (Acute) Thrombocytopenia (Chronic) Hemorrhoid thrombosis (Acute) B-cell lymphoma (Acute) Diabetes mellitus (Chronic 07/03/12) BS deterioration due to dietary indiscretion Gout (Acute 12/24/07) Medical History Actinic keratosis Airway compromise Anemia EGD-HH, ESOPH INFLAMMATION; 11/25 COLO-DIVERTICULOSIS, TINY RECTAL POLYP c-scope 2012: hyperpl. polyp Cataract (07/03/12) Diverticulosis of colon without diverticulitis Essential hypertension (12/27/12) Fracture of phalanx of finger History of tobacco use Lymphadenitis Lymphadenopathy Nystagmus Overweight regular exercise/dietary discretion advised Pain Polyp of colon tiny rectal hyperplastic polyp Prostate cancer (10/05/14) 2014 radiation RX/lupron SOBOE (shortness of breath on exertion) likely due to reduced 02 carrying capacity due to anemia Family History Mother , AGE 38 Alcohol abuse Father , AGE 76 Diabetes Sister Diabetes Maternal Grandfather , age 80 Stroke Maternal Grandmother , age 88 Diabetes Social History Smoking/Tobacco Use Status: Former Tobacco Use Quit Date: 02/20/84 Smokeless tobacco user: chewing tobacco (former use) Second Hand Exposure: No Smoking risk assessment performed?: Yes Alcohol Intake: current Alcohol Intake frequency: a few times a month Alcohol type: beer Drug use: Never Substance use type: does not use Caregiver/Support person: No Household members: spouse Housing: apartment Communication Needs: Corrective Lenses Do you need help understanding health information?: Never Pets and animals: No Sexually active: No Do you think of yourself as: straight/heterosexual Current gender identity: male What is your relationship status?: How often do you talk on the phone with friends or family?: three or more times per week How often do you get together with friends or relatives?: three or more times per week How often do you attend restoration or hinduism services?: 1-3 times per year Do you belong to any clubs or organized social groups?: yes Panel score (0-1 are the most socially isolated patients): 3 What type of physical activity do you participate in: walking and bicycling Duration: 60-90 minutes/day Frequency: 3-4 times per week Lily/Orthodox: Restorationism Special lily needs: No Seatbelt use: always Helmet use: Yes Helmet use: always Drive intox or ride w/intox petroleum transport driver: No Do you feel safe at home: Yes Do you feel safe in your relationship?: Yes Exam Const General: cooperative and no acute distress HENMT Mouth: moist mucous membranes Eyes Conjunctivae: normal conjunctivae Sclera: normal sclerae Neck Neck: trachea midline and supple Resp Auscultation: clear to auscultation bilaterally, no rales, no rhonchi and no wheezes Cardio Rate: tachycardic Rhythm: regular rhythm GI Palpation: soft, not firm, no guarding, no masses, not rigid and nontender Skin General skin exam: no rashes or lesions noted Neuro General: patient alert, patient awake, patient oriented x3 and tone normal Extrem General: no calf tenderness and no edema Psych Appearance: grossly normal Mental Status: mental status grossly normal Speech and Movement: speech and movement normal Course Vital Signs Vital signs: Vital Signs Temperature 37.2 C 11/15/22 12:47 Pulse 104 H 11/15/22 12:47 Respiratory Rate 11/15/22 12:47 Pulse Oximetry 95 11/15/22 12:47 Temperature 37.2 C 11/15/22 12:47 Temperature Source Oral 11/15/22 12:47 Pulse 104 H 11/15/22 12:47 Respiratory Rate 11/15/22 12:47 Respiratory Effort Normal 11/15/22 13:18 Respiratory Depth Normal 11/15/22 13:18 Respiratory Pattern Normal 11/15/22 13:18 Pulse Oximetry 95 11/15/22 12:47 Oxygen Delivery Method Room Air 11/15/22 12:47 Oxygen Flow Rate 0 11/15/22 12:47 Pain Level 0 11/15/22 12:47 Lab/Test Results Lab/Test Results: 11/15/22 13:14 Blood Blood Culture - Pending 11/15/22 13:14 Blood Blood Culture - Pending
[2022-11-15 13:49] LABS: Lactate 2.6 mmol/L (0.6-1.4)
[2022-11-15 13:59] LABS: Bilirubin Negative (Negative); Blood Negative (Negative); Clarity Clear (Clear); Glucose Negative (Negative); Ketones Negative (Negative); Leukocyte Esterase Negative (Negative); Nitrite Negative (Negative); Urobilinogen 0.2 mg/dL (Up to 0.2)
[2022-11-15 14:05] LABS: Bacteria Rare HPF (Negative); C & S Indicated? No; Casts Negative LPF (Negative); Crystals Negative HPF (Negative); Epithelial Cells Negative HPF (Negative); Mucus Trace (Negative); Other Cells Negative (Negative); RBC Negative HPF (0-2); WBC Negative HPF (0-5)
[2022-11-15 14:22] LABS: Source Nasal/Nares
[2022-11-15 14:39] LABS: Abs Immature Grans 0.45 10^3/uL (0.0-0.06); HCT 31.1 % (40.0-50.0); HGB 10.3 g/dL (13.5-17.5); MCH 30.9 pg (27.0-33.0); MCHC 33.1 % (32.0-36.0); MCV 93 fL (80-95); MPV 11.3 fL (8.0-11.0); Platelet Count 157 10^3/uL (130-400); RBC 3.33 10^6/uL (4.36-5.78); RDW 15.4 % (11.8-14.1); RDW-SD 52.8 fL; WBC 7.42 10^3/uL (4.4-10.8)
[2022-11-15] MEDS: Lactated Ringers 1,000 ML 1000 ML IV (14:40)
[2022-11-15 15:05] LABS: COVID-19 PCR Negative (Negative)
[2022-11-15 15:06] LABS: Absolute Eosinophil Count 0.15 10^3/uL (0.0-0.7); Absolute Lymphocyte Count 0.96 10^3/uL (1.2-3.4); Absolute Monocyte Count 1.26 10^3/uL (0.1-0.8); Absolute Neutrophil Count 4.75 10^3/uL (1.2-6.7); Atypical Lymphocytes % 7; Bands % 0; Diff Comment Manual Differential; Metamyelocytes % 3; Myelocytes % 1; RBC Morphology Normal
[2022-11-15] MEDS: CEFEPIME 2 GM in Normal Saline 100 ML IVPB (15:33)
--- NOTE | 2022-11-15 16:33 | W.PM.HP.N ---
Date of service: 11/15/22 Time of Service: 16:34 Assessment and Plan Assessment and plan (1) SIRS (systemic inflammatory response syndrome): Status: Acute Assessment and plan: Rigors, tachycardia and elevated lactate. Not hypotensive, febrile and WBC count normal. No source of an infection detected as of yet. Cefepime initiated. Watch for signs/sxs of infectious process. (2) B-cell lymphoma: Status: Acute Assessment and plan: Underwent his first round of R CHOP chemotherapy on 10/18/2022. He has had quite a dramatic reaction with severe neutropenia. He was given neupogen after his chemotherapy and his ANC has rebounded significantly. Admitted and subsequently discharged on antibiotic. Presented to ED this admission with rigors. Questionably early sepsis. Blood counts normal. (3) Diabetes mellitus: Status: Chronic Assessment and plan: Type 2 diabetes on no medications. Blood sugar was elevated at 241 on admission. Sensitive sliding scale ordered. Monitor. (4) Gout: Status: Acute Assessment and plan: He has recurrent gout for which he takes allopurinol and as needed colchicine. Continue allopurinol, hold colchicine unless needed for acute gout (5) Acute hypokalemia: Status: Resolved Assessment and plan: Replete and monitor. (6) Hypomagnesemia: Status: Resolved Assessment and plan: Replete and monitor. (7) Discharge planning issues: Status: Acute Assessment and plan: Likely home with no services. Full code. DVT prophylaxis with lovenox 40mg sc daily. History of Present Illness History of Present Illness Chief Complaint: Rigors, fatigue Narrative: This is a 72 yo male with a PMH of B-cell lymphoma 1 week post his second round of chemotx Also h/o DM2 and gout. Pt presented to the ED from his oncologist office where he was noted to have rigors. He endorsed 1 day of fatigue and simply not feeling well. His endorsed that he had 7 bowel movements in the last apx 48 ours; all formed. No watery or bloody stools. No abd pain. WBC count normal. Lactate elevated at 2.6. K 3 and Na 131. UA and CXR w/o evidence of infectious process. Covid negative. ED provider spoke with his oncologist and cefepime recommended and was initiated. IV fluids administered. Admitted for further treatment Review of Systems All systems reviewed & are unremarkable except as noted in HPI and below PFSH All Active Problems (Updated 11/16/22 @ 14:58 by Salazar Chaves MD) Discharge planning issues (Acute) Rigors (Acute) SIRS (systemic inflammatory response syndrome) (Acute) Hypokalemia (Acute) Hyponatremia (Acute) Urinary retention (Acute) Thrombocytopenia (Chronic) Hemorrhoid thrombosis (Acute) B-cell lymphoma (Acute) Diabetes mellitus (Chronic 07/03/12) BS deterioration due to dietary indiscretion Gout (Acute 12/24/07) Medical History Actinic keratosis Airway compromise Anemia EGD-HH, ESOPH INFLAMMATION; 11/25 COLO-DIVERTICULOSIS, TINY RECTAL POLYP c-scope 2012: hyperpl. polyp Cataract (07/03/12) Diverticulosis of colon without diverticulitis Essential hypertension (12/27/12) Fracture of phalanx of finger History of tobacco use Lymphadenitis Lymphadenopathy Nystagmus Overweight regular exercise/dietary discretion advised Pain Polyp of colon tiny rectal hyperplastic polyp Prostate cancer (10/05/14) 2014 radiation RX/lupron SOBOE (shortness of breath on exertion) likely due to reduced 02 carrying capacity due to anemia Family History Mother , AGE 38 Alcohol abuse Father , AGE 76 Diabetes Sister Diabetes Maternal Grandfather , age 80 Stroke Maternal Grandmother , age 88 Diabetes Social History Smoking/Tobacco Use Status: Former Tobacco Use Quit Date: 02/20/84 Smokeless tobacco user: chewing tobacco (former use) Second Hand Exposure: No Smoking risk assessment performed?: Yes Alcohol Intake: current Alcohol Intake frequency: a few times a month Alcohol type: beer Drug use: Never Substance use type: does not use Caregiver/Support person: No Household members: spouse Housing: apartment Communication Needs: Corrective Lenses Do you need help understanding health information?: Never Pets and animals: No Sexually active: No Do you think of yourself as: straight/heterosexual Current gender identity: male What is your relationship status?: How often do you talk on the phone with friends or family?: three or more times per week How often do you get together with friends or relatives?: three or more times per week How often do you attend sikhism or jain services?: 1-3 times per year Do you belong to any clubs or organized social groups?: yes Panel score (0-1 are the most socially isolated patients): 3 What type of physical activity do you participate in: walking and bicycling Duration: 60-90 minutes/day Frequency: 3-4 times per week Lily/Yarsanism: Mandaeism Special lily needs: No Seatbelt use: always Helmet use: Yes Helmet use: always Drive intox or ride w/intox crude oil driver: No Do you feel safe at home: Yes Do you feel safe in your relationship?: Yes Meds Allergies and Home Medications Allergies Allergy/AdvReac Type Severity Reaction Status Date / Time No Known Allergies Allergy Verified 11/09/22 13:10 Home Medications Medication Instructions Recorded Confirmed Type aspirin 81 mg chewable tablet 81 mg PO DAILY 06/24/12 11/15/22 History (Aspirin Low-Strength) blood-glucose meter ([employer] ##1 07/31/16 11/11/22 History UltraMini kit) cetirizine 10 mg capsule (All Day 10 mg PO DAILY PRN 01/16/18 11/15/22 History Allergy (cetirizine)) ferrous sulfate 325 mg (65 mg See Rx Instructions PO DAILY 03/12/20 11/15/22 History iron) tablet (Feosol) allopurinol 100 mg tablet 200 mg PO DAILY #180 tab-caps 06/14/22 11/15/22 Rx blood sugar diagnostic #100 ea 07/10/22 11/11/22 Rx lancets #100 ea 07/10/22 11/11/22 Rx amlodipine 5 mg tablet 5 mg PO DAILY #30 tabs 10/05/22 11/15/22 Rx oxycodone 10 mg tablet 10 mg PO QHS PRN pain #30 tabs 10/05/22 11/15/22 Rx acyclovir 400 mg tablet 400 mg PO BID 10/25/22 11/15/22 History prochlorperazine maleate 10 mg 10 mg PO PRN PRN 10/25/22 11/15/22 History tablet hydrocortisone 2.5 % topical cream 1 applic [place] QD-BID PRN hemorrhoids 10/28/22 11/15/22 Rx with perineal applicator #30 grams lidocaine HCl 2 % mucosal jelly in 5 ml topical ONCE #125 mL 10/28/22 11/15/22 Rx applicator (Glydo) psyllium husk 3.4 gram/5.4 gram 1 tbsp PO BID #660 grams 10/28/22 11/15/22 Rx oral powder (Metamucil) hydrocortisone 1 %-pramoxine 1 % 0 g [place] TID #0 grams 10/29/22 11/15/22 Rx rectal foam (Proctofoam HC) tamsulosin 0.4 mg capsule 0.4 mg PO HS #90 caps 11/09/22 11/15/22 Rx Exam Narrative Exam Narrative: Lying in bed. Appears fatigued. Const General: cooperative and no acute distress HENMT Ears: hearing grossly normal bilaterally Mouth: moist mucous membranes Eyes General: appearance normal, both eyes and all related structures Sclera: sclerae normal Neck Neck: trachea midline and supple Resp Effort & Inspection: normal respiratory effort Auscultation: clear to auscultation bilaterally, no rales, no rhonchi and no wheezes Cardio Rate: tachycardic Rhythm: regular rhythm Heart Sounds: S1 normal and S2 normal GI Palpation: soft and nontender Auscultation: normal bowel sounds Skin General skin exam: no rashes or lesions noted Neuro General: patient alert, patient awake, patient oriented x3 and no focal motor deficits Extrem General: no pedal edema and no calf tenderness Psych Appearance: grossly normal Mental Status: mental status grossly normal Speech and Movement: speech and movement normal Affect: normal affect Results Labs 11/16/22 08:10 Labs: Laboratory Results - last 24 hr 11/15/22 11/15/22 11/15/22 13:38 13:38 13:45 WBC 7.42 RBC 3.33 L Hgb 10.3 L Hct 31.1 L MCV 93 MCH 30.9 MCHC 33.1 RDW 15.4 H Plt Count 157 MPV 11.3 H Immature Gran % 0.0 Neutrophils % 64.0 Band Neutrophils % 0 Lymphocytes % 6.0 Atypical Lymphs % 7 Monocytes % 17.0 Eosinophils % 2.0 Basophils % 0.0 Metamyelocytes % 3 Myelocytes % 1 Nucleated RBC % 0.0 Absolute Neutrophils 4.75 Absolute Lymphocytes 0.96 L Absolute Monocytes 1.26 H Absolute Eosinophils 0.15 Absolute Basophils 0.00 RBC Morphology Normal VBG Lactate 2.6 H* Urine Color Yellow Urine Clarity Clear Urine pH 6.0 Ur Specific [place] 1.020 Urine Protein 30 H Urine Ketones Negative Urine Blood Negative Urine Nitrite Negative Urine Bilirubin Negative Urine Urobilinogen 0.2 Ur Leukocyte Esterase Negative Urine RBC Negative Urine WBC Negative Ur Epithelial Cells Negative Urine Crystals Negative Urine Bacteria Rare Urine Casts Negative Urine Mucus Trace Urine Other Negative Ur Culture Indicated? No Urine Glucose Negative COVID-19 Source SARS-CoV-2 (PCR) 11/15/22 14:00 WBC RBC Hgb Hct MCV MCH MCHC RDW Plt Count MPV Immature Gran % Neutrophils % Band Neutrophils % Lymphocytes % Atypical Lymphs % Monocytes % Eosinophils % Basophils % Metamyelocytes % Myelocytes % Nucleated RBC % Absolute Neutrophils Absolute Lymphocytes Absolute Monocytes Absolute Eosinophils Absolute Basophils RBC Morphology VBG Lactate Urine Color Urine Clarity Urine pH Ur Specific [place] Urine Protein Urine Ketones Urine Blood Urine Nitrite Urine Bilirubin Urine Urobilinogen Ur Leukocyte Esterase Urine RBC Urine WBC Ur Epithelial Cells Urine Crystals Urine Bacteria Urine Casts Urine Mucus Urine Other Ur Culture Indicated? Urine Glucose COVID-19 Source Nasal/Nares SARS-CoV-2 (PCR) Negative Last Vital Signs Temp 37.2 C 11/15/22 12:47 Pulse 102 H 11/15/22 13:16 Resp 28 H 11/15/22 13:20 BP 123/59 L 11/15/22 13:16 Pulse Ox 91 L 11/15/22 13:20 Time Spent Time spent with Patient: 40-54 minutes Time was spent: preparing to see the patient(eg.review tests), obtaining and/or reviewing separately otained hiistory, ordering medications,tests, procedures, referring, communicating with other health neonatal intensive care nurse, indepentently interpreting results, counseling the patient and care coordination
--- NOTE | 2022-11-15 16:45 | DI.CT_ITS ---
Exam(s) CT CHEST PE ABD PELVIS W EXAM: CT CHEST PE ABD PELVIS W CLINICAL HISTORY: rigors, tachycardic, hypoxia, b cell lymphoma. TECHNIQUE: Imaging Protocol: Axial CT angiography was performed with multi-slice acquisition and m ulti-planar and/or 3D reconstructions. CONTRAST MATERIAL: Intravenous: Omnipaque 350 Contrast volume:100 ml Oral: None COMPARISON: CT CT ABDOMEN PELVIS W from 10/25/2022 FINDINGS: CHEST: PULMONARY ARTERIES: Somewhat suboptimal injection. No obvious intraluminal filling defects to sugges t pulmonary emboli. LUNGS: There is infiltrate in the posterior basal segments of both lower lobes, more so on the right side. There are no pleural effusions.. MEDIASTINUM: There is no hilar nor mediastinal adenopathy. Nodule noted in the right thyroid lobe. CARDIAC: Heart size is normal. There is no pericardial effusion. There is no significant shift of t he interventricular septum.Caliber thoracic aorta upper normal. No dissection. Incidentally noted i s independent origin of the left vertebral artery off the aortic arch. OSSEOUS: No significant osseous lesions.. ABDOMEN: There is no ascites. LIVER: There are no focal hepatic lesions nor dilatation of intrahepatic ducts. GALLBLADDER/BILIARY: No obvious gallbladder pathology. CBD is not dilated. PANCREAS: No evidence of pancreatic mass nor dilatation of the pancreatic duct. SPLEEN: Spleen is not enlarged. There are no intrasplenic lesions. Splenic and portal veins are guerrier nt. ADRENALS: There are no significant adrenal masses. KIDNEYS:Small benign cysts in both kidneys. Not requiring further follow-up. No solid renal masses. No calculi. No hydronephrosis nor hydroureter. Urinary bladder unremarkable. No calculi nor hydr onephrosis. No solid renal masses. ABDOMINAL AORTA: Calcified but not enlarged. No dissection. LYMPH NODES: There is no retroperitoneal or para-aortic adenopathy. ABDOMINAL WALL/GI: No evidence of significant anterior abdominal wall hernia. No bowel obstruction. There is diffuse colitis pattern with circumferential wall thickening of the entire colon. This also includes the rectosigmoid. PELVIS: LYMPH NODES: There is no intrapelvic nor inguinal adenopathy. GI: No evidence of appendicitis.No evidence of sigmoid diverticulitis. URINARY BLADDER: No calculi nor masses evident REPRODUCTIVE: Prostate surgically absent. Clips in the region. Seminal vesicles intact. No obturat or adenopathy evident. OSSEOUS: No significant osseous lesions. IMPRESSION: 1. Suboptimal injection but no obvious acute pulmonary emboli. No aortic dissection. 2. There is infiltrate in the posterior basal segment right lower lobe and milder infiltrate at simil ar location in the left lung. There are no pleural effusions. No intrathoracic adenopathy. 3. There is a diffuse colitis pattern 4. Small prostate with surgical clips. Prostate may be surgically absent. 5. No ascites nor lymphadenopathy. No splenomegaly. Called by myself to [facility] surgery floor nurse 11/15/2022 8:05 pm. RADIATION DOSE DELIVERED: 1,776.96mGy.cm Total DLP DATA REPOSITORY: All CT scans at this facility are submitted to the National Radiology Data Registry (NRDR) Dose Index Registry (DIR) with the [employer] (ACR). RADIATION OPTIMIZATION: All CT scans at this facility use at least one of these dose optimization te chniques: automated exposure control; mA and/or kV adjustment per patient size (includes targeted exa ms where dose is matched to clinical indication); or iterative reconstruction.
[2022-11-15] MEDS: POTASSIUM CHLORIDE 20 MEQ/100 ML BAG 50 MEQ IVPB (18:20)
[2022-11-15] MEDS: Lactated Ringers 500 ML 1000 ML IV (18:20)
[2022-11-15] MEDS: Potassium Chloride 20 MEQ TABCR PO (18:20)
[2022-11-15] MEDS: Normal Saline - Diluent 50 ML VIAL IJ (18:30)
[2022-11-15] MEDS: Normal Saline Flush 10 ML SYR IVP (18:31)
--- NOTE | 2022-11-15 19:47 | DI.VRAD_ITS ---
PROCEDURE INFORMATION: Exam: CTA Chest With Contrast CTA Abdomen With Contrast Exam date and time: 11/15/2022 6:11 PM Age: 72 years old Clinical indication: Other: Rigors, tachycardic, hypoxia, b cell lymphoma TECHNIQUE: Imaging protocol: Computed tomographic angiography of the chest with contrast. Exam focused on the arteries. Computed tomographic angiography of the abdomen with contrast. Exam focused on the arteries. 3D rendering (Not supervised by radiologist): MIP and/or 3D reconstructed images were created by the technologist. Contrast material: OMNIPAQUE 350; Contrast volume: 100 ml; Contrast route: INTRAVENOUS (IV); COMPARISON: CR XR CHEST 2V PA LATERAL 11/15/2022 2:49 PM FINDINGS: Tubes, catheters and devices: Implanted Port-A-Cath in the right anterior chest wall with its tip in the right atrium. VASCULATURE: Pulmonary arteries: No pulmonary embolism identified. Aorta: No thoracic or abdominal aortic aneurysm or dissection. Celiac trunk and mesenteric arteries: Celiac artery, superior mesenteric artery, and inferior mesenteric artery widely patent. Mild atherosclerotic calcification at the celiac and SMA origins. Renal arteries: Main renal artery is widely patent. Small accessory artery to the right upper pole as well, grossly patent, as seen. Right iliac arteries: Right common iliac artery widely patent. Prominent atherosclerotic calcification in the proximal right external iliac artery with mild irregular narrowing. Mild irregular narrowing of the right internal iliac artery. Right femoral/popliteal arteries: Atherosclerotic calcification in the right common femoral artery with minimal associated narrowing. Visualized proximal right superficial femoral artery widely patent. Left iliac arteries: Atherosclerotic calcification in the left common iliac artery with mild associated narrowing. Mild narrowing through the proximal left internal iliac artery. Left external iliac artery widely patent. Left femoral/popliteal arteries: Left common femoral and visualized proximal left superficial femoral artery widely patent. Thyroid: Thyroid gland partially excluded from view grossly normal in size throughout its visualized portion. 1.7 cm indeterminate hypoattenuating right thyroid lesion, partially obscured by artifact and not well characterized by today's exam but possibly a colloid cyst or hypoattenuating nodule. CHEST: Lungs: Dependent atelectasis. Otherwise, no pulmonary consolidation. Pleural spaces: Trace bilateral pleural fluid. No pneumothorax. Heart: Normal-sized heart. Coronary artery calcification. Diaphragm: Small hiatal hernia. ABDOMEN AND PELVIS: Liver: Normal appearing liver. Gallbladder and bile ducts: Normal appearing gallbladder. No calcified gallstones. No biliary dilatation. Pancreas: Normal appearing pancreas. Spleen: Normal appearing spleen. Adrenal glands: Normal appearing adrenal glands. Kidneys and ureters: 2 cm right renal cyst. Additional smaller hypoattenuating renal lesions, incompletely characterized but statistically most likely additional small cysts. Mild symmetric perinephric edema. No hydronephrosis. No obstructing ureteral stones. Stomach and bowel: No oral contrast. Stomach partially decompressed. No small bowel dilatation to suggest obstruction. Extensive mural thickening throughout most of the colon, most severe through the sigmoid colon and rectum. Pericolic fat stranding also present. Appendix: Appendix not identified, obscured if present. Correlation with surgical history recommended. Intraperitoneal space: No gross ascites or free air. Urinary bladder: Normal appearing urinary bladder. Reproductive: Normal-sized prostate gland with associated surgical clips. Normal-appearing seminal vesicles. Lymph nodes: No pathologically enlarged mediastinal or hilar lymph nodes. No pathologically enlarged mesenteric, retroperitoneal, or pelvic sidewall lymph nodes. Bones/joints: No acute fracture seen among the bones of the chest, abdomen, or pelvis. Spinal degenerative change with large anterior osteophytes at multiple thoracic levels and discogenic degeneration, Schmorl's nodes, vacuum disc deformities, anterior osteophytes, posterior osteophytic ridging, and facet arthrosis at several lumbar levels. Soft tissues: Mild symmetric gynecomastia, nonspecific. Small fat containing ventral hernia at the umbilicus. Small fat containing right inguinal region hernia. IMPRESSION: 1. Diffuse acute proctocolitis, most severe through the sigmoid colon and rectum. Infectious or inflammatory causes could have this appearance. Although the appearance is nonspecific, C difficile colitis or ulcerative colitis could produce this appearance. Clinical correlation is recommended. 2. No thoracic or abdominal aortic aneurysm or dissection. Dictated and Authenticated by: Abdullahi Gonzalez MD. Ordering:ELMER Sood MD
[2022-11-15 21:47] LABS: C-Reactive Protein 14.07 mg/dL (0.0-0.3)
[2022-11-15] MEDS: Acetaminophen 325 MG TAB PO (22:00)
[2022-11-15] MEDS: Tamsulosin 0.4 MG CAPCR PO (22:35)
[2022-11-15] MEDS: LORazepam 0.5 MG TAB PO (23:09)
[2022-11-15] MEDS: Acyclovir 400 MG TAB PO (23:10)
[2022-11-15] MEDS: metroNIDAZOLE 500 MG/100 ML BAG 100 MG IVPB (23:10)
[2022-11-16] VITALS (12 sets, daily range): BP systolic 90–144; BP diastolic 49–68; PULSE 83–111; RESP 16–20; TEMP 36.5–38.7; O2SAT 93–97
[2022-11-16] MEDS: CEFEPIME 2 GM in Normal Saline 100 ML IVPB (00:50)
[2022-11-16 02:22] LABS: C Diff PCR Positive (Negative)
[2022-11-16] MEDS: Acetaminophen 325 MG TAB PO ×3 (04:30→17:27)
[2022-11-16] MEDS: metroNIDAZOLE 500 MG/100 ML BAG 100 MG IVPB ×3 (05:05→21:18)
[2022-11-16] MEDS: Normal Saline 250 ML 500 ML IV (07:43)
[2022-11-16] MEDS: Enoxaparin 40 MG/0.4 ML SYR SC (08:21)
[2022-11-16] MEDS: Aspirin 81 MG CHEW PO (08:22)
[2022-11-16] MEDS: Allopurinol 100 MG TAB 200 MG PO (08:22)
[2022-11-16] MEDS: Fidaxomicin 200 MG TAB PO ×2 (08:22→20:27)
[2022-11-16] MEDS: Acyclovir 400 MG TAB PO ×2 (08:22→20:26)
[2022-11-16] MEDS: Psyllium PKT 1 EACH PO (08:22)
[2022-11-16 08:24] LABS: Lactate 1.3 mmol/L (0.6-1.4)
[2022-11-16 08:28] LABS: HCT 25.2 % (40.0-50.0); HGB 8.5 g/dL (13.5-17.5); MCH 30.8 pg (27.0-33.0); MCHC 33.7 % (32.0-36.0); MCV 91 fL (80-95); MPV 10.6 fL (8.0-11.0); Platelet Count 131 10^3/uL (130-400); RBC 2.76 10^6/uL (4.36-5.78); RDW 15.4 % (11.8-14.1); RDW-SD 51.1 fL; WBC 5.94 10^3/uL (4.4-10.8)
[2022-11-16] MEDS: amLODIPine 5 MG TAB PO (08:33)
[2022-11-16 08:39] LABS: Magnesium 1.6 mg/dL (1.8-2.4)
[2022-11-16 08:53] LABS: Absolute Lymphocyte Count 0.18 10^3/uL (1.2-3.4); Absolute Monocyte Count 1.54 10^3/uL (0.1-0.8); Absolute Neutrophil Count 4.22 10^3/uL (1.2-6.7); Anisocytosis 1+; Bands % 21; Diff Comment Manual Differential
[2022-11-16 11:01] LABS: ESR (LRH) 10 mm/hr
--- NOTE | 2022-11-16 12:51 | INITIAL_ITS ---
Date of service: 11/16/22 Time of Service: 12:51 Care Management Initial Assmt Initial Assessment REASON FOR HOSPITALIZATION:: SIRS, B-Cell Lymphoma PREVIOUS FUNCTIONAL STATUS/SOCIAL/FAMILY SUPPORTS:: Cheo lives in [facility] with Claritza, his of 36 years. Together they have 5 adult children, 4 of whom live locally and are supportive of the couple. 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 He enjoys playing cards, bowling, going for walks, and visiting with family and friends. Cheo drives and is independent with his ADLs at baseline. ADVANCE DIRECTIVES:: On file; Claritza Freire is appointed as HCA. Has patient been provided with info about the portal/API?: No Did the patient sign up for the portal?: No CODE STATUS:: Full Code INSURANCE COVERAGE / FINANCIAL ISSUES:: Medicare and [employer] Senior Supplemental Insurance CURRENT HOME/COMMUNITY SERVICES/EQUIPMENT:: No home/community services or equipment. Patient is receiving chemotherapy treatment at the [facility]. His oncologist is Adrianne Rasmussen MD. PRIMARY CARE PHYSICIAN:: Frederick Meade MD POTENTIAL DISCHARGE NEEDS:: Follow up appointments with PCP, [facility] oncologist and discharge plan of care. PATIENT/FAMILY EDUCATION NEEDS:: Review of discharge instructions including medications, limitations and follow up plan of care; discuss Ask Me Three and self management. ANTICIPATED BARRIERS TO DISCHARGE:: None identified at this time. TRANSPORTATION:: Via private vehicle with family. PLAN:: Cheo will discharge home with a resumption of home health RN when medically cleared by provider. He will follow up with his PCP, [facility] oncologist, and plan of care as instructed. He will be transported home by his via private vehicle when ready. CM will continue to follow [facility] All Active Problems (Updated 11/15/22 @ 16:42 by Barrie Gil MD) Rigors (Acute) SIRS (systemic inflammatory response syndrome) (Acute) Hypokalemia (Acute) Hyponatremia (Acute) Urinary retention (Acute) Thrombocytopenia (Chronic) Hemorrhoid thrombosis (Acute) B-cell lymphoma (Acute) Diabetes mellitus (Chronic 07/03/12) BS deterioration due to dietary indiscretion Gout (Acute 12/24/07) Medical History Actinic keratosis Airway compromise Anemia EGD-HH, ESOPH INFLAMMATION; 11/25 COLO-DIVERTICULOSIS, TINY RECTAL POLYP c-scope 2012: hyperpl. polyp Cataract (07/03/12) Diverticulosis of colon without diverticulitis Essential hypertension (12/27/12) Fracture of phalanx of finger History of tobacco use Lymphadenitis Lymphadenopathy Nystagmus Overweight regular exercise/dietary discretion advised Pain Polyp of colon tiny rectal hyperplastic polyp Prostate cancer (10/05/14) 2014 radiation RX/lupron SOBOE (shortness of breath on exertion) likely due to reduced 02 carrying capacity due to anemia Family History Mother , AGE 38 Alcohol abuse Father , AGE 76 Diabetes Sister Diabetes Maternal Grandfather , age 80 Stroke Maternal Grandmother , age 88 Diabetes Social History Smoking/Tobacco Use Status: Former Tobacco Use Quit Date: 02/20/84 Smokeless tobacco user: chewing tobacco (former use) Second Hand Exposure: No Smoking risk assessment performed?: Yes Alcohol Intake: current Alcohol Intake frequency: a few times a month Alcohol type: beer Drug use: Never Substance use type: does not use Caregiver/Support person: No Household members: spouse Housing: apartment Communication Needs: Corrective Lenses Do you need help understanding health information?: Never Pets and animals: No Sexually active: No Do you think of yourself as: straight/heterosexual Current gender identity: male What is your relationship status?: How often do you talk on the phone with friends or family?: three or more times per week How often do you get together with friends or relatives?: three or more times per week How often do you attend worship or christian services?: 1-3 times per year Do you belong to any clubs or organized social groups?: yes Panel score (0-1 are the most socially isolated patients): 3 What type of physical activity do you participate in: walking and bicycling Duration: 60-90 minutes/day Frequency: 3-4 times per week Lily/Restorationism: Restorationist Special lily needs: No Seatbelt use: always Helmet use: Yes Helmet use: always Drive intox or ride w/intox class b truck driver: No Do you feel safe at home: Yes Do you feel safe in your relationship?: Yes Readmission Within the Past 30 Days Yes or No: Yes Date of First Admission Date of 1st Admission: 10/25/22 Date of this Admission Date of Admission: 11/15/22 This admission was: Through ED Office Visit Since 1st Admission Have you seen your PCP in the office since discharge?: Yes Date of PCP Appointment: 11/09/22 Had an appointment Been Scheduled?: Yes ED visits How many ED visits in the past 12 months: 4 (Since 09/21/22) Assessment for Readmission Summary of readmission circumstances, based upon interviews: SIRS. History of B-cell lymphoma, on second round of chemotherapy, here with what appears to be rigors this morning, fatigued with decreased energy yesterday and today.? Patient is mildly tachycardic and normotensive. Concern for potential adverse reaction to chemotherapy including neutropenia.
[2022-11-16] MEDS: Potassium Chloride 20 MEQ TABCR PO ×2 (14:58→20:27)
[2022-11-16] MEDS: MAGNESIUM SULFATE 4 GM/100 ML BAG IVPB (15:01)
--- NOTE | 2022-11-16 15:03 | W.PM.PROGNOT ---
Date of Service Date of service: 11/16/22 Time of Service: 15:04 Assessment and Plan Assessment and plan (1) SIRS (systemic inflammatory response syndrome): Status: Acute Assessment and plan: Rigors, tachycardia and elevated lactate. Not hypotensive, febrile and WBC count normal. No source of an infection detected as of yet. Cefepime initiated. Source now know; C.Diff; see below (2) C. difficile colitis: Status: Acute Assessment and plan: Stools became loose/watery overnight. Dificid initiated. He did receive IV flagyl initially but this and cefepime stopped. Lomotil prn. Maintain hydration and correct electrolytes. (3) B-cell lymphoma: Status: Acute Assessment and plan: Underwent his first round of R [facility] chemotherapy on 10/18/2022. He has had quite a dramatic reaction with severe neutropenia. He was given neupogen after his chemotherapy and his ANC has rebounded significantly. Admitted and subsequently discharged on antibiotic. Presented to ED this admission with rigors. Questionably early sepsis. Blood counts normal. (4) Diabetes mellitus: Status: Chronic Assessment and plan: Type 2 diabetes on no medications. Blood sugar was elevated at 241 on admission. Sensitive sliding scale ordered. Monitor. (5) Gout: Status: Acute Assessment and plan: He has recurrent gout for which he takes allopurinol and as needed colchicine. Continue allopurinol, hold colchicine unless needed for acute gout (6) Acute hypokalemia: Status: Resolved Assessment and plan: Replete and monitor. (7) Hypomagnesemia: Status: Resolved Assessment and plan: Replete and monitor. (8) Discharge planning issues: Status: Acute Assessment and plan: Likely home with no services. Full code. DVT prophylaxis with lovenox 40mg sc daily. Subjective Subjective Patient reports: no new complaints and tolerating liquids well; denies nausea, vomiting or shortness of breath Interval history since last seen: Low grade temp today. Several loose, watery stools since last PM. Exam Narrative Exam Narrative: Lying in bed. Appears fatigued. present. Const General: cooperative, no acute distress and other (appears fatigued) [facility] Ears: hearing grossly normal bilaterally Mouth: moist mucous membranes Eyes General: appearance normal, both eyes and all related structures Sclera: sclerae normal Neck Neck: trachea midline and supple Resp Effort & Inspection: normal respiratory effort Auscultation: clear to auscultation bilaterally, no rales, no rhonchi and no wheezes Cardio Rate: tachycardic Rhythm: regular rhythm Heart Sounds: S1 normal and S2 normal GI Palpation: soft and nontender Auscultation: normal bowel sounds Skin General skin exam: no rashes or lesions noted Neuro General: patient alert, patient awake, patient oriented x3 and no focal motor deficits Extrem General: no pedal edema and no calf tenderness Psych Appearance: grossly normal Mental Status: mental status grossly normal Speech and Movement: speech and movement normal Affect: normal affect Objective Last Vital Signs Temp 38.7 C H 11/16/22 14:33 Pulse 103 H 11/16/22 14:33 Resp 20 11/16/22 14:33 BP 144/67 H 11/16/22 14:33 Pulse Ox 95 11/16/22 14:33 Laboratory Results - last 24 hr 11/15/22 11/15/22 11/15/22 13:38 14:00 21:22 WBC 7.42 RBC 3.33 L Hgb 10.3 L Hct 31.1 L MCV 93 MCH 30.9 MCHC 33.1 RDW 15.4 H Plt Count 157 MPV 11.3 H Immature Gran % 0.0 Neutrophils % 64.0 Band Neutrophils % 0 Lymphocytes % 6.0 Atypical Lymphs % 7 Monocytes % 17.0 Eosinophils % 2.0 Basophils % 0.0 Metamyelocytes % 3 Myelocytes % 1 Nucleated RBC % 0.0 Absolute Neutrophils 4.75 Absolute Lymphocytes 0.96 L Absolute Monocytes 1.26 H Absolute Eosinophils 0.15 Absolute Basophils 0.00 RBC Morphology Normal Anisocytosis ESR VBG Lactate Magnesium C-Reactive Protein 14.07 H Stl C.difficile Tox PCR SARS-CoV-2 (PCR) Negative 11/16/22 11/16/22 11/16/22 00:35 08:10 08:10 WBC RBC Hgb Hct MCV MCH MCHC RDW Plt Count MPV Immature Gran % Neutrophils % Band Neutrophils % Lymphocytes % Atypical Lymphs % Monocytes % Eosinophils % Basophils % Metamyelocytes % Myelocytes % Nucleated RBC % Absolute Neutrophils Absolute Lymphocytes Absolute Monocytes Absolute Eosinophils Absolute Basophils RBC Morphology Anisocytosis ESR 10 VBG Lactate Magnesium 1.6 L C-Reactive Protein Stl C.difficile Tox PCR Positive A SARS-CoV-2 (PCR) 11/16/22 11/16/22 08:10 08:10 WBC 5.94 RBC 2.76 L Hgb 8.5 L Hct 25.2 L MCV 91 MCH 30.8 MCHC 33.7 RDW 15.4 H Plt Count 131 MPV 10.6 Immature Gran % See Differential Neutrophils % 50.0 Band Neutrophils % 21 Lymphocytes % 3.0 Atypical Lymphs % Monocytes % 26.0 Eosinophils % 0.0 Basophils % 0.0 Metamyelocytes % Myelocytes % Nucleated RBC % 0.0 Absolute Neutrophils 4.22 Absolute Lymphocytes 0.18 L Absolute Monocytes 1.54 H Absolute Eosinophils 0.00 Absolute Basophils 0.00 RBC Morphology See Below Anisocytosis 1+ ESR VBG Lactate 1.3 Magnesium C-Reactive Protein Stl C.difficile Tox PCR SARS-CoV-2 (PCR) Time Spent with Patient Time Spent with Patient: 25-34 minutes Time was spent: preparing to see the patient(eg.review tests), obtaining and/or reviewing separately otained hiistory, ordering medications,tests, procedures, referring, communicating with other health health care marketing specialist, indepentently interpreting results, counseling the patient and care coordination
[2022-11-16] MEDS: Insulin Aspart 300 UNITS/3 ML PEN SC (17:28)
[2022-11-16] MEDS: Tamsulosin 0.4 MG CAPCR PO (21:17)
[2022-11-16] MEDS: LORazepam 0.5 MG TAB PO (21:18)
[2022-11-16 23:15] LABS: Campylobacter PCR Negative (Negative); Salmonella PCR Negative (Negative); Shiga Toxin PCR Negative (Negative); Shigella/Enteroinvasive Ecoli Negative (Negative)
[2022-11-17] VITALS (8 sets, daily range): BP systolic 99–138; BP diastolic 60–82; PULSE 77–112; RESP 16; TEMP 36.3–39; O2SAT 93–97
--- NOTE | 2022-11-17 | DI.US_ITS ---
Exam(s) US UPPER EXTREMITY VENOUS LT EXAM: US UPPER EXTREMITY VENOUS LT CLINICAL HISTORY: swelling and warmth. TECHNIQUE: Ultrasound examination of the left upper extremity venous system(s) is performed using gr ayscale, color-flow, and spectral Doppler analysis. COMPARISON: No exams were available for comparison FINDINGS: Left Deep Veins:The visualized internal jugular and subclavian veins are patent. The axillary and br achial veins are patent and display normal color flow, augmentation and compressibility. Superficial Veins:The visualized cephalic vein is patent and display normal color flow, augmentation and compressibility. There is thrombus seen in the basilic and median cubital veins measuring 7 cm i n total length. Soft tissues: Unremarkable. IMPRESSION: 1. No evidence of a left upper extremity deep venous thrombosis. 2. Superficial thrombophlebitis in the basilic and median cubital veins measuring 7 cm in length. DATA REPOSITORY:
[2022-11-17 00:41] LABS: COVID-19 PCR Negative (Negative); Influenza A PCR Negative (Negative); Influenza B PCR Negative (Negative); RSV PCR Negative (Negative)
[2022-11-17 00:44] LABS: Source Nasopharynx
[2022-11-17] MEDS: Acetaminophen 325 MG TAB PO ×2 (05:41→18:45)
[2022-11-17] MEDS: metroNIDAZOLE 500 MG/100 ML BAG 100 MG IVPB ×3 (05:42→23:16)
[2022-11-17 07:33] LABS: Abs Immature Grans 0.82 10^3/uL (0.0-0.06); HCT 25.3 % (40.0-50.0); HGB 8.5 g/dL (13.5-17.5); MCH 30.7 pg (27.0-33.0); MCHC 33.6 % (32.0-36.0); MCV 91 fL (80-95); MPV 10.8 fL (8.0-11.0); Platelet Count 138 10^3/uL (130-400); RBC 2.77 10^6/uL (4.36-5.78); RDW 15.8 % (11.8-14.1); RDW-SD 51.7 fL; WBC 13.85 10^3/uL (4.4-10.8)
[2022-11-17 07:59] LABS: Absolute Eosinophil Count 0.14 10^3/uL (0.0-0.7); Absolute Lymphocyte Count 0.42 10^3/uL (1.2-3.4); Absolute Monocyte Count 3.19 10^3/uL (0.1-0.8); Absolute Neutrophil Count 9.83 10^3/uL (1.2-6.7); Bands % 5; Diff Comment Manual Differential; Hypochromasia 2+; Metamyelocytes % 2
[2022-11-17 08:10] LABS: Anion Gap 10.1 mmol/L (3-11); BUN 15 mg/dL (7-18); CO2 20.9 mmol/L (21.0-32.0); CREATININE 1.3 mg/dL (0.70-1.30); Calcium 8.3 mg/dL (8.5-10.1); Chloride 101 mmol/L (98-107); Estimated GFR 57.65 (mL/min/1.73m2); Glucose 160 mg/dL (74-106); Magnesium 2.2 mg/dL (1.8-2.4); Potassium 3.3 mmol/L (3.5-5.1); Sodium 132 mmol/L (136-145)
[2022-11-17] MEDS: Acyclovir 400 MG TAB PO ×2 (09:14→20:27)
[2022-11-17] MEDS: Enoxaparin 40 MG/0.4 ML SYR SC (09:14)
[2022-11-17] MEDS: Aspirin 81 MG CHEW PO (09:15)
[2022-11-17] MEDS: Potassium Chloride 20 MEQ TABCR PO ×2 (09:15→20:28)
[2022-11-17] MEDS: Insulin Aspart 300 UNITS/3 ML PEN SC ×3 (09:15→17:37)
[2022-11-17] MEDS: Allopurinol 100 MG TAB 200 MG PO (09:15)
[2022-11-17] MEDS: amLODIPine 5 MG TAB PO (09:15)
[2022-11-17] MEDS: Fidaxomicin 200 MG TAB PO ×2 (09:15→20:27)
[2022-11-17] MEDS: Normal Saline 250 ML 500 ML IV (13:05)
--- NOTE | 2022-11-17 13:05 | CMPROGNOTE_ITS ---
Date of service: 11/17/22 Time of Service: 13:05 Care Management Progress Note Progress Note Text Progress Note Text: S/O: Cheo was awake and lying in bed watching TV with his at his bedside when CM met with him. He engages in conversation and denies any concerns. He is more awake today and his appetite is slightly better than yesterday. Claritza has her appointment booklet in her hand and she shares that she just scheduled an outpatient echo which is needed prior to his next infusion. Per Claritza it is becoming increasingly hard to schedule Cheo's infusions and follow up appointments. It is also getting much harder to get him to appointments, but she is willing to do whatever it takes. CM will continue to follow. A: 72 year old male admitted to [facility] on 11/15/2022 for SIRS, C-Diff P:?Cheo will discharge home with a resumption of home health RN when medically cleared by provider. He will follow up with his PCP, [facility] oncologist, and plan of care as instructed. He will be transported home by his via private vehicle when ready.? CM will continue to follow
--- NOTE | 2022-11-17 13:50 | W.PM.PROGNOT ---
Date of Service Date of service: 11/17/22 Time of Service: 13:52 Assessment and Plan Assessment and plan (1) SIRS (systemic inflammatory response syndrome): Status: Acute Assessment and plan: Rigors, tachycardia and elevated lactate. Not hypotensive, febrile and WBC count normal. No source of an infection detected as of yet. Cefepime initiated initially. Now d/c'd. Source now know; C.Diff; see below (2) C. difficile colitis: Status: Acute Assessment and plan: Stools became loose/watery overnight. Dificid initiated. He did receive IV flagyl initially but this and cefepime stopped. Lomotil prn. Maintain hydration and correct electrolytes. (3) B-cell lymphoma: Status: Acute Assessment and plan: Underwent his first round of R CHOP chemotherapy on 10/18/2022. He has had quite a dramatic reaction with severe neutropenia. He was given neupogen after his chemotherapy and his ANC has rebounded significantly. Admitted and subsequently discharged on antibiotic. Presented to ED this admission with rigors. Questionably early sepsis. Blood counts normal. (4) Diabetes mellitus: Status: Chronic Assessment and plan: Type 2 diabetes on no medications. Blood sugar was elevated at 241 on admission. Sensitive sliding scale ordered. Monitor. (5) Gout: Status: Acute Assessment and plan: He has recurrent gout for which he takes allopurinol and as needed colchicine. Continue allopurinol, hold colchicine unless needed for acute gout (6) Acute hypokalemia: Status: Resolved Assessment and plan: Replete and monitor. (7) Hypomagnesemia: Status: Resolved Assessment and plan: Replete and monitor. (8) Discharge planning issues: Status: Acute Assessment and plan: Likely home with no services. Full code. DVT prophylaxis with lovenox 40mg sc daily. Subjective Subjective Patient reports: feels better, tolerating a regular diet and bowel movement (Last BM had some formed stool); denies nausea, vomiting or shortness of breath Exam Narrative Exam Narrative: Lying in bed. More conversational and interactive today. Const General: cooperative and no acute distress HENMT Ears: hearing grossly normal bilaterally Mouth: moist mucous membranes Neck Neck: trachea midline and supple Resp Effort & Inspection: normal respiratory effort Auscultation: clear to auscultation bilaterally, no rales, no rhonchi and no wheezes Cardio Rate: tachycardic Rhythm: regular rhythm Heart Sounds: S1 normal and S2 normal GI Palpation: soft and nontender Auscultation: normal bowel sounds Skin General skin exam: no rashes or lesions noted Neuro General: patient alert, patient awake, patient oriented x3 and no focal motor deficits Extrem General: no pedal edema and no calf tenderness Psych Appearance: grossly normal Mental Status: mental status grossly normal Speech and Movement: speech and movement normal Affect: normal affect Objective Last Vital Signs Temp 36.9 C 11/17/22 07:39 Pulse 112 H 11/17/22 07:39 Resp 16 11/17/22 07:39 BP 99/60 L 11/17/22 07:39 Pulse Ox 93 11/17/22 07:39 Laboratory Results - last 24 hr 11/16/22 11/16/22 11/17/22 00:35 23:40 06:40 WBC RBC Hgb Hct MCV MCH MCHC RDW Plt Count MPV Immature Gran % Neutrophils % Band Neutrophils % Lymphocytes % Monocytes % Eosinophils % Basophils % Metamyelocytes % Nucleated RBC % Absolute Neutrophils Absolute Lymphocytes Absolute Monocytes Absolute Eosinophils Absolute Basophils RBC Morphology Hypochromasia Sodium 132 L Potassium 3.3 L Chloride 101 Carbon Dioxide 20.9 L Anion Gap 10.1 BUN 15 Creatinine 1.3 Est GFR (CKD-EPI 2020) 57.65 Glucose 160 H Calcium 8.3 L Magnesium 2.2 Stool Campylobacter PCR Negative Stool Salmonella PCR Negative Stool Shigella PCR Negative COVID-19 Source Nasopharynx SARS-CoV-2 (PCR) Negative Influenza Type A (PCR) Negative Influenza Type B (PCR) Negative RSV (PCR) Negative Shiga Toxin (PCR) Negative 11/17/22 06:40 WBC 13.85 H RBC 2.77 L Hgb 8.5 L Hct 25.3 L MCV 91 MCH 30.7 MCHC 33.6 RDW 15.8 H Plt Count 138 MPV 10.8 Immature Gran % See Differential Neutrophils % 66.0 Band Neutrophils % 5 Lymphocytes % 3.0 Monocytes % 23.0 Eosinophils % 1.0 Basophils % 0.0 Metamyelocytes % 2 Nucleated RBC % 0.0 Absolute Neutrophils 9.83 H Absolute Lymphocytes 0.42 L Absolute Monocytes 3.19 H Absolute Eosinophils 0.14 Absolute Basophils 0.00 RBC Morphology See Below Hypochromasia 2+ Sodium Potassium Chloride Carbon Dioxide Anion Gap BUN Creatinine Est GFR (CKD-EPI 2020) Glucose Calcium Magnesium Stool Campylobacter PCR Stool Salmonella PCR Stool Shigella PCR COVID-19 Source SARS-CoV-2 (PCR) Influenza Type A (PCR) Influenza Type B (PCR) RSV (PCR) Shiga Toxin (PCR) Time Spent with Patient Time Spent with Patient: 25-34 minutes Time was spent: preparing to see the patient(eg.review tests), obtaining and/or reviewing separately otained hiistory, ordering medications,tests, procedures, referring, communicating with other health health care liaison, indepentently interpreting results, counseling the patient and care coordination
[2022-11-17] MEDS: Naproxen 500 MG TAB PO (17:37)
[2022-11-17] MEDS: LORazepam 0.5 MG TAB PO (20:28)
[2022-11-17] MEDS: Tamsulosin 0.4 MG CAPCR PO (23:16)
[2022-11-17] MEDS: Normal Saline Flush 10 ML SYR IVP (23:17)
[2022-11-18] MEDS: metroNIDAZOLE 500 MG/100 ML BAG 100 MG IVPB ×3 (06:26→20:02)
[2022-11-18] MEDS: Normal Saline Flush 10 ML SYR IVP (06:27)
[2022-11-18 07:17] LABS: HCT 25.4 % (40.0-50.0); HGB 8.6 g/dL (13.5-17.5); MCH 30.6 pg (27.0-33.0); MCHC 33.9 % (32.0-36.0); MCV 90 fL (80-95); MPV 10.5 fL (8.0-11.0); Platelet Count 127 10^3/uL (130-400); RBC 2.81 10^6/uL (4.36-5.78); RDW 15.5 % (11.8-14.1); RDW-SD 51.3 fL; WBC 22.67 10^3/uL (4.4-10.8)
[2022-11-18 07:32] LABS: Absolute Lymphocyte Count 0.45 10^3/uL (1.2-3.4); Absolute Monocyte Count 1.13 10^3/uL (0.1-0.8); Absolute Neutrophil Count 21.08 10^3/uL (1.2-6.7); Atypical Lymphocytes % 1; Bands % 1; Diff Comment Manual Differential; RBC Morphology Normal
[2022-11-18 07:33] LABS: BUN 16 mg/dL (7-18); CREATININE 1.2 mg/dL (0.70-1.30); Calcium 8.6 mg/dL (8.5-10.1); Chloride 100 mmol/L (98-107); Estimated GFR 63.46 (mL/min/1.73m2); Glucose 158 mg/dL (74-106); Potassium 3.3 mmol/L (3.5-5.1); Sodium 132 mmol/L (136-145)
[2022-11-18 07:45] VITALS: BP 105/62; PULSE 92; RESP 16; TEMP 36.5; O2SAT 96
[2022-11-18] MEDS: Enoxaparin 40 MG/0.4 ML SYR SC (08:28)
[2022-11-18] MEDS: Allopurinol 100 MG TAB 200 MG PO (08:29)
[2022-11-18] MEDS: amLODIPine 5 MG TAB PO (08:29)
[2022-11-18] MEDS: Aspirin 81 MG CHEW PO (08:29)
[2022-11-18] MEDS: Potassium Chloride 20 MEQ TABCR PO ×2 (08:29→20:01)
[2022-11-18] MEDS: Fidaxomicin 200 MG TAB PO ×2 (08:29→20:02)
[2022-11-18] MEDS: Acyclovir 400 MG TAB PO ×2 (08:29→20:01)
[2022-11-18] MEDS: Insulin Aspart 300 UNITS/3 ML PEN SC ×3 (08:29→17:10)
[2022-11-18] MEDS: cefTRIAXone 2 GM/50 ML BAG IVPB ×2 (10:50→20:02)
[2022-11-18 18:08] VITALS: BP 122/70; PULSE 91; RESP 18; TEMP 36.7; O2SAT 94
--- NOTE | 2022-11-18 18:42 | W.PM.PROGNOT ---
Date of Service Date of service: 11/18/22 Time of Service: 18:43 Assessment and Plan Assessment and plan (1) SIRS (systemic inflammatory response syndrome): Status: Acute Assessment and plan: Rigors, tachycardia and elevated lactate. Not hypotensive, febrile and WBC count normal. See C.Diff and pneumonia (2) C. difficile colitis: Status: Acute Assessment and plan: Stools became loose/watery on night of admission. Dificid initiated. He did receive IV flagyl initially and this was continued. Lomotil prn. Stool frequency slowing. Maintain hydration and correct electrolytes. (3) Pneumonia: Status: Acute Assessment and plan: Initial CXR was negative. CT showed infiltrate in the posterior basal segment right lower lobe and milder infiltrate at similar location in the left lung.? There are no pleural effusions.? No intrathoracic adenopathy WBC count has increased. Rocephin initiated. No resp symptoms. Monitor. (4) B-cell lymphoma: Status: Acute Assessment and plan: Underwent his first round of R CHOP chemotherapy on 10/18/2022. He has had quite a dramatic reaction with severe neutropenia. He was given neupogen after his chemotherapy and his ANC has rebounded significantly. Admitted and subsequently discharged on antibiotic. Presented to ED this admission with rigors. Questionably early sepsis. Blood counts normal. (5) Diabetes mellitus: Status: Chronic Assessment and plan: Type 2 diabetes on no medications. Blood sugar was elevated at 241 on admission. Sensitive sliding scale ordered. Monitor. (6) Gout: Status: Acute Assessment and plan: He has recurrent gout for which he takes allopurinol and as needed colchicine. Continue allopurinol, hold colchicine unless needed for acute gout (7) Acute hypokalemia: Status: Resolved Assessment and plan: Replete and monitor. (8) Hypomagnesemia: Status: Resolved Assessment and plan: Replete and monitor. (9) Discharge planning issues: Status: Acute Assessment and plan: Likely home with no services. Full code. DVT prophylaxis with lovenox 40mg sc daily. Subjective Subjective Patient reports: feels better, tolerating a regular diet, diarrhea (less frequent watery stools) and afebrile; denies blood in stool, nausea, vomiting or shortness of breath Exam Narrative Exam Narrative: Sitting in recliner. present. Const General: cooperative and no acute distress HENMT Ears: hearing grossly normal bilaterally Mouth: moist mucous membranes Neck Neck: trachea midline and supple Resp Effort & Inspection: normal respiratory effort Auscultation: clear to auscultation bilaterally Cardio Rate: tachycardic Rhythm: regular rhythm Heart Sounds: S1 normal and S2 normal GI Palpation: soft and nontender Auscultation: normal bowel sounds Skin General skin exam: no rashes or lesions noted Neuro General: patient alert, patient awake, patient oriented x3 and no focal motor deficits Extrem General: no pedal edema and no calf tenderness Psych Appearance: grossly normal Mental Status: mental status grossly normal Speech and Movement: speech and movement normal Affect: normal affect Objective Last Vital Signs Temp 36.7 C 11/18/22 18:08 Pulse 91 H 11/18/22 18:08 Resp 18 11/18/22 18:08 BP 122/70 11/18/22 18:08 Pulse Ox 94 11/18/22 18:08 Laboratory Results - last 24 hr 11/18/22 11/18/22 06:57 06:57 WBC 22.67 H RBC 2.81 L Hgb 8.6 L Hct 25.4 L MCV 90 MCH 30.6 MCHC 33.9 RDW 15.5 H Plt Count 127 L MPV 10.5 Immature Gran % 0.0 Neutrophils % 92.0 Band Neutrophils % 1 Lymphocytes % 1.0 Atypical Lymphs % 1 Monocytes % 5.0 Eosinophils % 0.0 Basophils % 0.0 Nucleated RBC % 0.0 Absolute Neutrophils 21.08 H Absolute Lymphocytes 0.45 L Absolute Monocytes 1.13 H Absolute Eosinophils 0.00 Absolute Basophils 0.00 RBC Morphology Normal Sodium 132 L Potassium 3.3 L Chloride 100 Carbon Dioxide 22.0 Anion Gap 10.0 BUN 16 Creatinine 1.2 Est GFR (CKD-EPI 2020) 63.46 Glucose 158 H Calcium 8.6 Time Spent with Patient Time Spent with Patient: 35-49 minutes Time was spent: preparing to see the patient(eg.review tests), obtaining and/or reviewing separately otained hiistory, ordering medications,tests, procedures, referring, communicating with other health customer care coordinator, indepentently interpreting results, counseling the patient and care coordination
[2022-11-18] MEDS: Tamsulosin 0.4 MG CAPCR PO (20:01)
[2022-11-19 01:05] VITALS: BP 108/63; PULSE 95; RESP 20; TEMP 36.5; O2SAT 98
[2022-11-19] MEDS: metroNIDAZOLE 500 MG/100 ML BAG 100 MG IVPB ×3 (06:03→20:15)
[2022-11-19 07:00] LABS: HGB 7.9 g/dL (13.5-17.5); MCH 31.7 pg (27.0-33.0); MCHC 34.3 % (32.0-36.0); MCV 92 fL (80-95); MPV 11.6 fL (8.0-11.0); Platelet Count 125 10^3/uL (130-400); RBC 2.49 10^6/uL (4.36-5.78); RDW 15.8 % (11.8-14.1); RDW-SD 53.2 fL; WBC 22.87 10^3/uL (4.4-10.8)
[2022-11-19 07:13] LABS: Anion Gap 10.6 mmol/L (3-11); BUN 17 mg/dL (7-18); CO2 20.4 mmol/L (21.0-32.0); CREATININE 1.1 mg/dL (0.70-1.30); Calcium 8.5 mg/dL (8.5-10.1); Chloride 99 mmol/L (98-107); Estimated GFR 70.44 (mL/min/1.73m2); Glucose 152 mg/dL (74-106); Sodium 130 mmol/L (136-145)
[2022-11-19 07:21] LABS: Absolute Lymphocyte Count 0.91 10^3/uL (1.2-3.4); Absolute Monocyte Count 1.14 10^3/uL (0.1-0.8); Absolute Neutrophil Count 20.35 10^3/uL (1.2-6.7); Bands % 2; Diff Comment Manual Differential; Metamyelocytes % 2; RBC Morphology Normal
[2022-11-19 07:53] VITALS: BP 105/61; PULSE 85; RESP 16; TEMP 36.1; O2SAT 95
[2022-11-19] MEDS: Insulin Aspart 300 UNITS/3 ML PEN SC ×2 (08:02→17:08)
[2022-11-19] MEDS: Normal Saline 500 ML 100 ML IV (09:44)
[2022-11-19] MEDS: Normal Saline Flush 10 ML SYR IVP (09:45)
[2022-11-19] MEDS: Aspirin 81 MG CHEW PO (09:45)
[2022-11-19] MEDS: Acyclovir 400 MG TAB PO ×2 (09:45→20:14)
[2022-11-19] MEDS: Enoxaparin 40 MG/0.4 ML SYR SC (09:45)
[2022-11-19] MEDS: amLODIPine 5 MG TAB PO (09:45)
[2022-11-19] MEDS: Fidaxomicin 200 MG TAB PO ×2 (09:45→20:14)
[2022-11-19] MEDS: Allopurinol 100 MG TAB 200 MG PO (09:45)
[2022-11-19] MEDS: cefTRIAXone 2 GM/50 ML BAG IVPB ×2 (09:46→20:14)
[2022-11-19] MEDS: POTASSIUM CHLORIDE 20 MEQ/100 ML BAG 50 MEQ IVPB ×2 (09:47→12:05)
[2022-11-19 10:22] LABS: Lab Add On Test DONE
[2022-11-19] MEDS: Potassium Chloride 20 MEQ TABCR 40 MEQ PO (12:05)
[2022-11-19 12:13] VITALS: BP 123/66; PULSE 82; RESP 18; TEMP 36.6; O2SAT 95
--- NOTE | 2022-11-19 19:52 | PGE_ITS ---
Date of Service Date of service: 11/19/22 Time of Service: 19:52 Assessment and Plan Assessment and plan (1) SIRS (systemic inflammatory response syndrome): Status: Acute Assessment and plan: Multifactorial, due to C. Diff and PNA. Improved. Leucocytosis could also be affected by neulasta. Blood cx 11/15, 11/17 negative. See below (2) C. difficile colitis: Status: Acute Assessment and plan: Continue dificid + flagyl I have added probiotics, metamucil. Improving. Correct potassium. (3) Pneumonia: Status: Acute Assessment and plan: By CT. No resp. sx. Continue ceftriaxone. ?Does this represent lymphoma. (4) B-cell lymphoma: Status: Acute Assessment and plan: On R CHOP chemotherapy w/ severe neutropenia post 1st treatment. This time, after 2nd treatment, he's s/p neulasta. (5) Diabetes mellitus: Status: Chronic Assessment and plan: Type 2 diabetes, diet controlled at home. BGs here are in reasonable range. 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 Continue SSI. (6) Gout: Status: Acute Assessment and plan: Continue home allopurinol and hold colchicine unless needed (7) Acute hypokalemia: Status: Acute Assessment and plan: Replete; recheck in am. (8) Hypomagnesemia: Status: Resolved Assessment and plan: Recheck in am (9) Discharge planning issues: Status: Acute Assessment and plan: Anticipate discharge home tomorrow w/ resumption of home health nursing (10) DVT prophylaxis: Status: Acute Assessment and plan: Sc enoxaparin Subjective Subjective Interval history since last seen: MR Freire states that his diarrhea has gotten better. The last BM felt like a relief. It was soft and there was no water in it, he says. He had a total of 3 BMs today. Appetite is poor - this started only two days ago. Denies dizziness, CP, SOB, nausea, abdominal pain. Thinks it would be good to go home tomorrow. Exam Narrative Exam Narrative: General: Pleasant obese male who is resting comfortably in bed, A&Ox3, NAD HEENT: EOMI, MMM Heart: RRR, no m/r/g, a pause after every 4th beat Lungs: CTAB Abdomen: soft, nontender, nondistended but rotund Extremities: no edema BLEs Objective Last Vital Signs Temp 36.6 C 11/19/22 12:13 Pulse 82 11/19/22 12:13 Resp 18 11/19/22 12:13 BP 123/66 11/19/22 12:13 Pulse Ox 95 11/19/22 12:13 Laboratory Results - last 24 hr 11/19/22 11/19/22 11/19/22 06:00 06:00 06:00 WBC 22.87 H RBC 2.49 L Hgb 7.9 L Hct 23.0 L MCV 92 MCH 31.7 MCHC 34.3 RDW 15.8 H Plt Count 125 L MPV 11.6 H Immature Gran % 0.0 Neutrophils % 87.0 Band Neutrophils % 2 Lymphocytes % 4.0 Monocytes % 5.0 Eosinophils % 0.0 Basophils % 0.0 Metamyelocytes % 2 Nucleated RBC % 0.0 Absolute Neutrophils 20.35 H Absolute Lymphocytes 0.91 L Absolute Monocytes 1.14 H Absolute Eosinophils 0.00 Absolute Basophils 0.00 RBC Morphology Normal Sodium 130 L Potassium 3.0 L Chloride 99 Carbon Dioxide 20.4 L Anion Gap 10.6 BUN 17 Creatinine 1.1 Est GFR (CKD-EPI 2020) 70.44 Glucose 152 H Calcium 8.5 Magnesium Add-On Test Request DONE 11/19/22 06:00 WBC RBC Hgb Hct MCV MCH MCHC RDW Plt Count MPV Immature Gran % Neutrophils % Band Neutrophils % Lymphocytes % Monocytes % Eosinophils % Basophils % Metamyelocytes % Nucleated RBC % Absolute Neutrophils Absolute Lymphocytes Absolute Monocytes Absolute Eosinophils Absolute Basophils RBC Morphology Sodium Potassium Chloride Carbon Dioxide Anion Gap BUN Creatinine Est GFR (CKD-EPI 2020) Glucose Calcium Magnesium 2.0 Add-On Test Request Time Spent with Patient Time Spent with Patient: 25-34 minutes Time was spent: preparing to see the patient(eg.review tests), obtaining and/or reviewing separately otained hiistory, ordering medications,tests, procedures, referring, communicating with other health acute care nurse, indepentently interpreting results, counseling the patient and care coordination
[2022-11-19] MEDS: LORazepam 0.5 MG TAB PO (20:14)
[2022-11-19] MEDS: Tamsulosin 0.4 MG CAPCR PO (20:14)
[2022-11-19 21:32] VITALS: BP 106/63; PULSE 90; RESP 18; TEMP 36.4; O2SAT 96
[2022-11-20] MEDS: metroNIDAZOLE 500 MG/100 ML BAG 100 MG IVPB ×2 (06:09→14:55)
[2022-11-20 07:11] LABS: HCT 25.1 % (40.0-50.0); HGB 8.3 g/dL (13.5-17.5); MCHC 33.1 % (32.0-36.0); MCV 91 fL (80-95); MPV 11.1 fL (8.0-11.0); Platelet Count 146 10^3/uL (130-400); RBC 2.77 10^6/uL (4.36-5.78); RDW 15.7 % (11.8-14.1); RDW-SD 52.1 fL; WBC 20.51 10^3/uL (4.4-10.8)
[2022-11-20 07:40] LABS: Absolute Lymphocyte Count 1.44 10^3/uL (1.2-3.4); Absolute Monocyte Count 1.03 10^3/uL (0.1-0.8); Absolute Neutrophil Count 18.05 10^3/uL (1.2-6.7); Bands % 3
[2022-11-20 07:41] LABS: Diff Comment Manual Differential; RBC Morphology Normal
[2022-11-20 07:48] LABS: Anion Gap 10.7 mmol/L (3-11); BUN 13 mg/dL (7-18); CO2 21.3 mmol/L (21.0-32.0); Calcium 8.2 mg/dL (8.5-10.1); Chloride 99 mmol/L (98-107); Estimated GFR 78.98 (mL/min/1.73m2); Glucose 146 mg/dL (74-106); Magnesium 1.8 mg/dL (1.8-2.4); Sodium 131 mmol/L (136-145)
[2022-11-20] MEDS: Acyclovir 400 MG TAB PO ×2 (09:26→19:47)
[2022-11-20] MEDS: Aspirin 81 MG CHEW PO (09:27)
[2022-11-20] MEDS: Allopurinol 100 MG TAB 200 MG PO (09:27)
[2022-11-20] MEDS: amLODIPine 5 MG TAB PO (09:27)
[2022-11-20] MEDS: Enoxaparin 40 MG/0.4 ML SYR SC (09:28)
[2022-11-20] MEDS: Fidaxomicin 200 MG TAB PO ×2 (09:28→19:47)
[2022-11-20] MEDS: Insulin Aspart 300 UNITS/3 ML PEN SC ×3 (09:28→17:19)
[2022-11-20] MEDS: Potassium Chloride 20 MEQ TABCR 40 MEQ PO ×2 (09:29→19:47)
[2022-11-20 09:35] VITALS: BP 106/63; PULSE 84; RESP 18; TEMP 36.7; O2SAT 98
[2022-11-20] MEDS: cefTRIAXone 2 GM/50 ML BAG IVPB (10:45)
--- NOTE | 2022-11-20 14:17 | PT.INIE ---
Date of service: 11/20/22 Time of Service: 13:45 PT Notes Visit Reasons: SIRS, B-cell Lymphoma Inpatient Physical Therapy Evaluation Date: 11/20/22 Referring Doctor: Saadia Doss MD PT Orders: PT CONSULT: Limited ability Precautions: C-Diff, standard Patient Profile/Admitting Diagnosis: 72 yo male S/P 2 chemotherapy treatments for B-Cell lymphoma, w/SIRS, rigors, diaahrea, and general fatigue and not feeling well post treatment. Expected discharge tomorrow. PMHX: Discharge planning issues (Acute) Rigors (Acute) SIRS (systemic inflammatory response syndrome) (Acute) Hypokalemia (Acute) Hyponatremia (Acute) Urinary retention (Acute) Thrombocytopenia (Chronic) Hemorrhoid thrombosis (Acute) B-cell lymphoma (Acute) Diabetes mellitus (Chronic 07/03/12) BS deterioration due to dietary indiscretionGout (Acute 12/24/07) Medical History? Actinic keratosis Airway compromise Anemia EGD-HH, ESOPH INFLAMMATION; 11/25 COLO-DIVERTICULOSIS, TINY RECTAL POLYP c-scope 2012:? hyperpl. polypCataract (07/03/12) Diverticulosis of colon without diverticulitis Essential hypertension (12/27/12) Fracture of phalanx of finger History of tobacco use Lymphadenitis Lymphadenopathy Nystagmus Overweight regular exercise/dietary discretion advisedPain Polyp of colon tiny rectal hyperplastic polyp Prostate cancer (10/05/14) 2014 radiation RX/lupron SOBOE (shortness of breath on exertion) likely due to reduced 02 carrying capacity due to anemia Social History/Home Situation: Live in community housing with his , in a one level apartment. Has 5 steps to enter with rail, or can take another access with no stairs to elevator (but this requires more walking) Current Functional Limitations: Using RW for management of general malaise and WOB Equipment Owned/DME: RW, SPC Subjective: No pain, just feeling tired, SOB presents easily with exertion. Does not feel unsteady and confident with basic transfers and movement about his hospital room. Objective: General Observation: Lying in hospital bed, present, no lines Mental Status: A & O x3 Pain: 0/10 Vital Signs: 128/60, 97% 02 sat room air ROM: Right Upper Extremity: WNL Left Upper Extremity: WNL Right Lower Extremity: WNL Left Lower Extremity: WNL Strength: Right Upper Extremity: Grossly 5/5 Left Upper Extremity: Grossly 5/5 Right Lower Extremity: Grossly 5/5 Left Lower Extremity: Grossly 5/5 Sensation: WNL Bed Mobility/Transfers: Independent bed mobility, independent supine to sit and vice versa, supervision with walker bed to chair, STS supervision Gait: 200 ft RW, close supervision. 2 6 step, 3 4step with bilateral rail, up and down supervision Balance: Static Sitting: Excellent Dynamic Sitting: Excellent Static Standing:Good Dynamic Standing: Good Stage 4 Balance Test Time (seconds) Feet together 10 Partial tandem 10 Tandem 10 One foot 5 Special Tests: Mobility Limitations Standardized Measure [facility] AM-PAC 6 clicks Basic Mobility Inpatient Short Form: 0% disability Informed Consent/Education: Patient instructed in purpose of PT consult and plan of care. Assessment: Patient is a 72 year old male referred to physical therapy services with the diagnosis of limited ability, while admitted for management of SIRS, c.diff, and general fatigue post 2 chemotherapy treatments for B-Cell lymphoma. Patient presents with clinical signs and symptoms consistent with general deconditioning and malaise consistent with influence of chemotherapy. His fatigue is not impairing his safety for instability with dynamic movements within household distance, or ability to use stairs if his energy allows. He is appropriate for discharge home from PT perspective. Instruction provided in use of RW to use in the short term with respect to his fatigue, vs instability. He is clear to ambulate with supervision of his or nurse, to limit deconditioning during the remainder of his stay. He does not require skilled PT intervention to achieve this, given 0% AMPAC score. Patient is assessed as a Low 70514 complexity based on the following: History: See comorbidities, extensive medical history Examination: No ROM and strength deficits, minimal balance issues Presentation: Stable Decision Making: Easy Plan of Care/Treatment Plan: DISCHARGE RECOMMENDATIONS: Home with no services PT intervention may be appropriate later on if he continues to have diffiult w/ ADL tolerance and transfer ability with treatments, which can be monitored by PCP. TREATMENT CODE/TIME: 98161, 30 min, 1:45-2:15
--- NOTE | 2022-11-20 14:52 | CMPROGNOTE_ITS ---
Date of service: 11/20/22 Time of Service: 14:52 Care Management Progress Note Progress Note Text Progress Note Text: S/O: Cheo has C-Diff and is being closely monitored and treated. Per provider, he may be able to discharge home soon if his labs improve and he is feeling better. Resumption of [facility] RN. He was cleared by PT. CM will follow. A: 72 year old male admitted to [facility] on 11/15/2022 for SIRS, C-Diff P:?Cheo will discharge home with a resumption of home health RN when medically cleared by provider. He will follow up with [place] [facility] [place], and plan of care as instructed. He will be transported home by his via private vehicle when ready.? CM will continue to follow
[2022-11-20 17:23] VITALS: BP 120/84; PULSE 70; RESP 18; TEMP 36.7; O2SAT 95
--- NOTE | 2022-11-20 17:24 | DSE_ITS ---
Date of service: 11/20/22 Time of Service: 18:32 DS: Diagnosis Discharge Diagnosis (1) SIRS (systemic inflammatory response syndrome): Status: Acute (2) C. difficile colitis: Status: Acute (3) Pneumonia: Status: Acute (4) B-cell lymphoma: Status: Acute (5) Diabetes mellitus: Status: Chronic (6) Gout: Status: Acute (7) Acute hypokalemia: Status: Acute (8) Hypomagnesemia: Status: Resolved (9) Superficial thrombophlebitis of left upper extremity: Status: Acute Discharge Plan Disposition Patient Disposition: Home Condition: Improving Discharge Details Reason For Visit: SIRS, B-cell Lymphoma Admit Date/Time: 11/15/22 16:27 Admit Provider: Salazar Chaves Attending Provider: Salazar Chaves Primary Care Provider: Frederick Meade Hospital Course Hospital Course: Mr Freire is a 72 year old male with PMHx of Large B call lymphoma, as well as h/o hypertension, NIDDM2, Gout, who was a patient on [facility] hospitalist service from 11/15/22 until 11/20/22 for pneumonia and C. diff, having presented to [facility] ED from the oncologist's office with rigors. Blood cultures done on 11/15/22 and 11/17/22, including the infusaport, have shown no growth to date. CT chest/abdome n/pelvis did show a pulmonary infiltrate. He was started empirically on cefepime. His Low potassium and magnesium were repleted. He did test positive for C.Diff and was started on dificid and metronidazole initially. Cefepime was stopped; ceftriaxone was started instead (for the pneumonia). Lomotil was being used for diarrhea and metamucil was also used to help with bulking the stool. The patient is feeling well enough today to go home. He has 2 more days of cefpodoxime to finish. He should continue dificid for a week after finishing his systemic antibiotics. He is being instructed to take probiotics daily. He was incidentally found to have a LUE superficial thrombophlebitis on this admission and should have a follow up ultrasound as outpatient to ensure that it is not expanding. He is advised to treat this with elevation of extremity and warm compresses. He should have bloodwork done on 11/22/22 prior to his follow up with the oncologist. (BMP, magnesium). Care for patient as well as completion of his discharge summary on day of discharge took 45 minutes. Home Meds and New Rx's Prescriptions: New prednisone 50 mg tablet See Rx Instructions .ROUTE .COMPLEX Qty: 32 0RF Rx Instructions: 2 tabs every day on days 2-5 of each chemo. 4 rounds of chemo scheduled. diphenoxylate-atropine [Lomotil] 2.5-0.025 mg Tablet 1 tab PO Q4H PRN PRNQty: 30 0RF Dificid 200 mg Tablet 200 mg PO BID Qty: 20 0RF potassium chloride [Klor-Con M20] 20 mEq Tablet,Er Particles/Crystals 20 meq PO BID Qty: 10 0RF Lactobacillus acidophilus 1 billion cell capsule 1,000 mmu cells PO DAILY Qty: 30 0RF cefpodoxime 200 mg tablet 200 mg PO BID Qty: 4 0RF Rx Instructions: 1st dose tomorrow (11/21) in am. must administer with a meal/food Continued All Day Allergy (cetirizine) 10 mg capsule 10 mg PO DAILY PRN tamsulosin 0.4 mg capsule 0.4 mg PO HS Qty: 90 3RF ferrous sulfate [Feosol] 325 mg (65 mg iron) tablet See Rx Instructions PO DAILY Rx Instructions: 650 mg PO daily; oxycodone 10 mg tablet 10 mg PO QHS MDD 1 tab PRN (Reason: pain) Qty: 30 0RF Patient Comments: not taking currently amlodipine 5 mg tablet 5 mg PO DAILY Qty: 30 2RF aspirin [Aspirin Low-Strength] 81 MG tablet,chewable 81 mg PO DAILY (DME) blood-glucose meter [Weecast - Tuto.comTouch UltraMini] 1 EACH kit 1 ea Miscellaneous DAILY Qty: 1 allopurinol 100 mg tablet 200 mg PO DAILY Qty: 180 3RF (DME) blood sugar diagnostic Strip See Dose Instructions .ROUTE .MEDSUPPLY Qty: 100 3RF Dose Instruction: As directed Rx Instructions: test daily (DME) lancets Misc 1 ea Intradermal DAILY Qty: 100 3RF Rx Instructions: test daily hydrocortisone 2.5 % cream with perineal applicator 1 applic MS QD-BID PRN (Reason: hemorrhoids) Qty: 30 3RF lidocaine HCl [Glydo] 2 % jelly in applicator 5 ml topical ONCE Qty: 125 3RF Rx Instructions: as a single dose- apply to rectum Metamucil 3.4 gram/5.4 gram powder 1 tbsp PO BID Qty: 660 0RF Rx Instructions: mix into at least 8 oz of water or juice before administering prochlorperazine maleate 10 mg tablet 10 mg PO PRN PRN Patient Comments: TAKE ONE TABLET BY MOUTH EVERY 6 HOURS NEEDED FOR NAUSEA acyclovir 400 mg tablet 400 mg PO BID Proctofoam HC 1-1 % Foam 0 g MS TID Qty: 0 0RF Discharge Instructions Instructions: Cefpodoxime Proxetil (By mouth), Fidaxomicin (By mouth), Superficial Thrombophlebitis (ED), Superficial Thrombophlebitis (DC), C. Diff (Clostridioides Difficile) Infection (DC), Bacterial Pneumonia (DC) Additional Instructions: Finish your antibiotics as prescribed. Return to the hospital with worsening diarrhea, abdominal pain, fever, bleeding, chest pain, or shortness of breath. Follow up with your PCP in 1-2 weeks and with oncology as scheduled. Stand Alone Forms: Nursing Discharge Form Referrals: Ferderick Meade MD [Primary Care Provider] - (Please call and make an appointment in the next 1-2 weeks ) Activity:: Activity as Tolerated Equipment/Supplies:: No Equipment Needed Diet:: As Tolerated Discharge Orders Discharge Orders: Discharge Order (Routine); Ordered 11/20/22 Ordered By: Saadia Doss Other Ambulatory Orders: Basic Metabolic Panel (Routine) Timeframe: 20221122 Location: Determined by Patient Ordered By: Saadia Doss Magnesium (Routine) Timeframe: 20221122 Location: Determined by Patient Ordered By: Saadia Doss DS: Summary Time Spent with Patient providing and/or coordinating discharge services: Greater than 30 minutes Status at Discharge Functional status at discharge: independent ambulation Overall status at discharge: patient is progressing back to baseline Mental Status: mental status grossly normal Speech and Movement: speech and movement normal Mood: congruent mood Affect: normal affect Exam Narrative Exam Narrative: General: Pleasant obese male who is resting comfortably in bed, A&Ox3, NAD HEENT: EOMI, MMM Heart: RRR, no m/r/g, a pause after every 4th beat Lungs: CTAB Abdomen: soft, nontender, nondistended but rotund Extremities: no edema BLEs. There is no edema LUE. Psych Mental Status: mental status grossly normal Speech and Movement: speech and movement normal Mood: congruent mood Affect: normal affect DS: Data Vitals/I&O Vitals and I&O: Vital Signs Temperature 36.7 C 11/20/22 09:35 Temperature Source Tympanic 11/20/22 09:35 Pulse 84 11/20/22 09:35 Pulse Rhythm Regular 11/20/22 00:21 Pulse 101 H 11/15/22 18:01 Respiratory Rate 18 11/20/22 09:35 Respiratory Effort Normal, Non-Labored 11/20/22 00:21 Respiratory Depth Normal 11/20/22 00:21 Respiratory Pattern Normal 11/20/22 00:21 Blood Pressure 106/63 11/20/22 09:35 Blood Pressure Mean 79 11/15/22 18:01 Pulse Oximetry 98 11/20/22 09:35 Oxygen Delivery Method Room Air 11/20/22 09:35 Oxygen Flow Rate 0 11/20/22 09:35 Pain Level 0 11/20/22 09:35 Comment Pt. denies pain at this time. 11/19/22 12:13 Intake & Output 11/19/22 11/20/22 11/20/22 23:59 11:59 23:59 Intake Total 421.667 / 2263.334 150 / 250 100 / 250 Output Total 300 / 300 Balance 121.667 / 1963.334 150 / 250 100 / 250 Intake: IV 421.667 / 683.334 150 / 250 100 / 250 Output: Urine 300 / 300 Other: Urine Color Yellow Urine Appearance Clear Urine Odor Normal Comment Void x1 in the urinal. Voiding Methods Urinal Data Completed and Pending Completed studies during hospitalization [Text1]: CXR 11/15/22: No acute pulmonary findings. CT chest/abdomen/pelvis 11/15/22: 1. Suboptimal injection but no obvious acute pulmonary emboli.? No aortic dissection. 2. There is infiltrate in the posterior basal segment right lower lobe and milder infiltrate at similar location in the left lung.? There are no pleural effusions.? No intrathoracic adenopathy. 3. There is a diffuse colitis pattern 4. Small prostate with surgical clips.? Prostate may be surgically absent. 5. No ascites nor lymphadenopathy.? No splenomegaly. US LUE 11/17/22: 1. No evidence of a left upper extremity deep venous thrombosis.? 2. Superficial thrombophlebitis in the basilic and median cubital veins measuring 7 cm in length Labs on day of discharge: Labs from last 24 hours 11/20/22 11/20/22 06:07 06:07 WBC 20.51 H RBC 2.77 L Hgb 8.3 L Hct 25.1 L MCV 91 MCH 30.0 MCHC 33.1 RDW 15.7 H Plt Count 146 MPV 11.1 H Immature Gran % 0.0 Neutrophils % 85.0 Band Neutrophils % 3 Lymphocytes % 7.0 Monocytes % 5.0 Eosinophils % 0.0 Basophils % 0.0 Nucleated RBC % 0.0 Absolute Neutrophils 18.05 H Absolute Lymphocytes 1.44 Absolute Monocytes 1.03 H Absolute Eosinophils 0.00 Absolute Basophils 0.00 RBC Morphology Normal Sodium 131 L Potassium 3.0 L Chloride 99 Carbon Dioxide 21.3 Anion Gap 10.7 BUN 13 Creatinine 1.0 Est GFR (CKD-EPI 2020) 78.98 Glucose 146 H Calcium 8.2 L Magnesium 1.8 Preliminary micro results at discharge 11/17/22 20:14 Blood Culture - Preliminary Blood NO GROWTH 48 HOURS 11/17/22 18:15 Blood Culture - Preliminary Blood NO GROWTH 48 HOURS 11/17/22 18:27 Blood Culture - Preliminary Blood NO GROWTH 48 HOURS PFSH All Active Problems (Updated 11/20/22 @ 18:02 by Saadia Doss MD) Superficial thrombophlebitis of left upper extremity (Acute) Acute hypokalemia (Acute) DVT prophylaxis (Acute) Pneumonia (Acute) C. difficile colitis (Acute) Discharge planning issues (Acute) Rigors (Acute) SIRS (systemic inflammatory response syndrome) (Acute) Hypokalemia (Acute) Hyponatremia (Acute) Urinary retention (Acute) Thrombocytopenia (Chronic) Hemorrhoid thrombosis (Acute) B-cell lymphoma (Acute) Diabetes mellitus (Chronic 07/03/12) BS deterioration due to dietary indiscretion Gout (Acute 12/24/07) Medical History Actinic keratosis Airway compromise Anemia EGD-HH, ESOPH INFLAMMATION; 11/25 COLO-DIVERTICULOSIS, TINY RECTAL POLYP c-scope 2012: hyperpl. polyp Cataract (07/03/12) Diverticulosis of colon without diverticulitis Essential hypertension (12/27/12) Fracture of phalanx of finger History of tobacco use Lymphadenitis Lymphadenopathy Nystagmus Overweight regular exercise/dietary discretion advised Pain Polyp of colon tiny rectal hyperplastic polyp Prostate cancer (10/05/14) 2014 radiation RX/lupron SOBOE (shortness of breath on exertion) likely due to reduced 02 carrying capacity due to anemia Family History Mother , AGE 38 Alcohol abuse Father , AGE 76 Diabetes Sister Diabetes Maternal Grandfather , age 80 Stroke Maternal Grandmother , age 88 Diabetes Social History Smoking/Tobacco Use Status: Former Tobacco Use Quit Date: 02/20/84 Smokeless tobacco user: chewing tobacco (former use) Second Hand Exposure: No Smoking risk assessment performed?: Yes Alcohol Intake: current Alcohol Intake frequency: a few times a month Alcohol type: beer Drug use: Never Substance use type: does not use Caregiver/Support person: No Household members: spouse Housing: apartment Communication Needs: Corrective Lenses Do you need help understanding health information?: Never Pets and animals: No Sexually active: No Do you think of yourself as: straight/heterosexual Current gender identity: male What is your relationship status?: How often do you talk on the phone with friends or family?: three or more times per week How often do you get together with friends or relatives?: three or more times per week How often do you attend religious or spiritism services?: 1-3 times per year Do you belong to any clubs or organized social groups?: yes Panel score (0-1 are the most socially isolated patients): 3 What type of physical activity do you participate in: walking and bicycling Duration: 60-90 minutes/day Frequency: 3-4 times per week Lily/Voodoo: Taoist Special lily needs: No Seatbelt use: always Helmet use: Yes Helmet use: always Drive intox or ride w/intox tank driver: No Do you feel safe at home: Yes Do you feel safe in your relationship?: Yes Time Spent with Patient Time Spent with Patient: 45-69 minutes Time was spent: preparing to see the patient(eg.review tests), obtaining and/or reviewing separately otained hiistory, ordering medications,tests, procedures, referring, communicating with other health healthcare network pricing consultant, indepentently interpreting results, counseling the patient and care coordination
[2022-11-20] MEDS: Heparin 500 UNITS/5 ML SYRINGE IVP (20:00)
== END 2022-11-20 19:59 | disposition home or self-care (01) | DRG 371 ==
LOC: ER 16:42 → MS 18:49
PROVIDERS: Family Medicine; Internal Medicine; Admitting Provider Family Medicine; Emergency Provider Student in an Organized Health Care Education/Training Program; PCP Family Medicine; Visit Provider Family Medicine
DX: A04.72 Enterocolitis due to Clostridium difficile, not specified as recurrent (principal); J18.9 Pneumonia, unspecified organism; C85.10 Unspecified B-cell lymphoma, unspecified site; E87.1 Hypo-osmolality and hyponatremia; E11.9 Type 2 diabetes mellitus without complications; M10.9 Gout, unspecified; E83.42 Hypomagnesemia; E87.6 Hypokalemia; I80.8 Phlebitis and thrombophlebitis of other sites; Z79.899 Other long term (current) drug therapy; D69.6 Thrombocytopenia, unspecified; R33.9 Retention of urine, unspecified; K57.30 Diverticulosis of large intestine without perforation or abscess without bleeding; Z87.891 Personal history of nicotine dependence; Z85.46 Personal history of malignant neoplasm of prostate; D64.9 Anemia, unspecified; Z95.828 Presence of other vascular implants and grafts
CPT/HCPCS: 36591; 71275; 74177; 80048; 80053; 85652; 87040; 87493; 87505; 87635; 87637; 93005; 96365; 96366; 96367; 96375; 96376; 97161; 99285; J1650; 71046; 81003; 81015; 83605; 83735; 85025; 86140; 93010; 93971; 99223; 99232; 99233; 99239; J3475; J3480

== ENCOUNTER → 2022-11-28 00:27 | Outpatient (CLI) | payer MEDICARE, SELFPAY ==
--- NOTE | 2022-11-28 | DI.US_ITS ---
APPROVED REPORT EXAM: Comprehensive 2D, Doppler, and color-flow Echocardiogram Patient Location: Out-Patient Host And Hostess: Gwendolyn Shaffer RDCS (AE) Indications: High risk medication use, Lymphoma Other Information Study Quality: Adequate Conclusion Normal left ventricular wall thickness and chamber size. Ejection fraction is 52%. There is mild gl obal hypokinesis normal right ventricular size and systolic function Both atria are normal in size There is no structural or hemodynamically significant valvular disease Estimated right ventricular systolic pressure is 30 mmHg Left ventricular function is similar to that documented on November 06, 2022 at [facility] Wall motion Left Ventricle The left ventricle is normal size. Left ventricular systolic function is low normal. There is normal left ventricular wall thickness. There is normal LV segmental wall motion. There is no ventricular se ptal defect visualized. LVEF is 52%. Right Ventricle The right ventricle is normal size. The right ventricular systolic function is normal. Atria The left atrium size is normal. The right atrium size is normal. The interatrial septum is intact wit h no evidence for an atrial septal defect. Aortic Valve The Aortic valve is mildly sclerotic. Aortic valve is trileaflet. There is no aortic valvular stenosi s. No aortic regurgitation is present. Mitral Valve The mitral valve is normal in structure. No evidence of mitral valve stenosis. Trace mitral regurgita tion. Tricuspid Valve The tricuspid valve is normal in structure. There is no tricuspid valve stenosis. Trace tricuspid reg urgitation. The RVSP is 30.6mmHg. Pulmonic Valve Pulmonic valve is not well visualized. There is no pulmonic valvular stenosis. Trace pulmonic regurgi tation. Great Vessels The aortic root is normal in size. The ascending aorta is normal in size. IVC is normal in size and c ollapses >50% with inspiration. Pericardium There is no pericardial effusion. 2D Dimensions IVSD d PLAX 0.80 cm M: 0.6-1.2 Ao Root d 3.47 cm M: 3.1 - 3.7 LVPW d PLAX 0.82 cm M: 0.6 - 1.2 Ao Asc Diam d 3.43 cm M: 2.6 - 3.4 LVID d PLAX 5.43 cm M: 4.2 - 5.8 LVDs 3.96 cm M: 2.5 - 4.0 LV EF Teichholz 52.1 % FS 27.00 % LV EDV (Teich) 143.1 mL LV ESV (Teich) 68.5 mL M-Mode TAPSE 2.75 cm (M/F) >1.7 Auto EF LV EDV A4C 126.0 mL LV EDV A2C 129.1 mL LV EDV BP 128.1 mL LV ESV A4C 61.5 mL LV ESV A2C 56.8 mL LV ESV BP 58.0 mL LVEF(%) A4C 51.2 % LVEF(%) A2C 56.0 % LVEF(%) BP 54.8 % LV SV A4C 64.5 ml LV SV A2C 72.3 ml LV SV BP 70.2 ml LV CO A4C 4.6 L/min LV CO A2C 5.0 L/min LV CO BP 4.8 L/min HR A4C 72.00 BPM HR A2C 69.10 BPM LV EDV Index (BP) RV Strain Global Peak Long. Strain A4C 16.04 Global Peak Long. Strain A4C FW 15.37 LA Volume LA Length A4C 5.1 cm LA Length A2C 5.2 cm LA Area A4C s 19.62 cm2 LA Area A2C s 19.07 cm2 LA Vol A4C A-L 63.56 mL LA Vol A2C A-L 58.99 mL LA Vol Biplane A-L 61.8 mL LA Vol/BSA A4C A-L LA Vol/BSA A2C A-L LA Vol/BSA BP A-L 30.9 mL/m2 LA Vol A4C MOD 59.3 mL LA Vol A2C MOD 56.1 mL LA Vol BP MOD 58.1 mL RA Volume RA Area A4C 13.0 cm2 RA ESV A4C (A-L) 32.0mL RA Vol/BSA A4C A-L RA Length A4C 4.5 cm RA ESV A4C (MOD) 30.7mL LV Diastology MV E' medial 0.077 (>0.07 m/s) MV E Vmax 0.77 (0.4-1.3 m/s) MV E/E' MED 9.98 (<14) MV A Vmax 0.95 (0.4-1.3 m/s) MV E' lateral 0.082 (>0.1 m/s) E/A Ratio 0.8 MV E/E' LAT 9.33 (<14) MV E' Average 0.079 m/s MV E/E'(average) 9.65 Aortic Valve AoV Vmax 1.45 m/s LVOT Vmax 1.18 m/s AoV Peak Grad 8.4 mmHg LVOT Peak Grad 5.6 mmHg AoV Area (Vmax) 2.96 cm2 LVOT VTI 0.252 m AoV VTI 0.305 m LVOT Mean Grad 3.2 mmHg AoV Mean Jung. 1.02 m/s LVOT SV 91.63 mL AoV Mean Grad 4.6 mmHg LVOT Diam s 2.15 cm AoV Area (VTI) 3.00 cm2 Velocity Ratio 0.81 Mitral Valve MV DT 254 (160-240 msec) MV Vmax TIPS 0.95 m/s MV Mean Grad 1.7 (<2mmHg) MV VTI 0.325 m Pulmonary Valve PV Vmax 1.02 (0.5-1.5 m/s) RVOT Vmax 0.69 m/s PV Peak Grad 4.1 mmHg RVOT Peak Gr. 1.9 mmHg PV Mean Jung 0.72 m/s RVOT VTI 0.125 m PV Mean Grad 2.3 mmHg RVOT Mean Gr. 0.9 mmHg Tricuspid Valve RA Pressure 3.00 mmHg TR Vmax 2.62 m/s TV S' 0.19 m/s TR Peak Grad 27.5 mmHg RVSP (TR) 30.6 mmHg
== END ==
PROVIDERS: PCP Family Medicine; Visit Provider Internal Medicine Hematology & Oncology
DX: Z79.899 Other long term (current) drug therapy (principal); C85.10 Unspecified B-cell lymphoma, unspecified site
CPT/HCPCS: 93306

== ENCOUNTER 2022-12-06 03:36 | Outpatient (RCR) | payer MEDICARE, SELFPAY ==
[2022-11-22] MEDS: Heparin 500 UNITS/5 ML SYRINGE IV (10:30)
[2022-11-22] MEDS: Normal Saline Flush 10 ML SYR IVP (10:30)
[2022-11-22 11:54] LABS: HGB 8.8 g/dL (13.5-17.5); MCH 30.3 pg (27.0-33.0); MCHC 32.6 % (32.0-36.0); MCV 93 fL (80-95); MPV 10.4 fL (8.0-11.0); Nucleated RBC 0.1 % (0.0-0.3); RDW 16.3 % (11.8-14.1); RDW-SD 55.4 fL; WBC 15.41 10^3/uL (4.4-10.8)
[2022-11-22 11:59] LABS: Magnesium 1.7 mg/dL (1.8-2.4)
[2022-11-22 12:03] LABS: ALT 17 U/L (16-63); AST 20 U/L (15-37); Alkaline Phosphatase 139 U/L (46-116); Anion Gap 6.8 mmol/L (3-11); BUN 8 mg/dL (7-18); Bilirubin, Total 0.1 mg/dL (0.2-1.0); CO2 22.2 mmol/L (21.0-32.0); CREATININE 0.9 mg/dL (0.70-1.30); Calcium 8.3 mg/dL (8.5-10.1); Chloride 105 mmol/L (98-107); Estimated GFR 89.62 (mL/min/1.73m2); Glucose 160 mg/dL (74-106); Potassium 3.7 mmol/L (3.5-5.1); Sodium 134 mmol/L (136-145); Total Protein 5.2 g/dL (6.4-8.2)
[2022-11-22 12:14] LABS: Absolute Lymphocyte Count 0.77 10^3/uL (1.2-3.4); Absolute Neutrophil Count 12.94 10^3/uL (1.2-6.7); Platelet Count 220 10^3/uL (130-400)
[2022-11-22 12:15] LABS: Absolute Basophil Count 0.15 10^3/uL (0.0-0.2); Absolute Eosinophil Count 0.15 10^3/uL (0.0-0.7); Absolute Monocyte Count 0.92 10^3/uL (0.1-0.8); Anisocytosis 2+; Diff Comment Manual Differential; Metamyelocytes % 2; Myelocytes % 1
[2022-11-29] MEDS: Normal Saline Flush 10 ML SYR IVP (07:57)
[2022-11-29 08:04] LABS: Abs Immature Grans 0.09 10^3/uL (0.0-0.06); Absolute Basophil Count 0.05 10^3/uL (0.0-0.2); Absolute Eosinophil Count 0.04 10^3/uL (0.0-0.7); Absolute Lymphocyte Count 0.95 10^3/uL (1.2-3.4); Basophils % 0.7; Eosinophils % 0.5; HGB 9.7 g/dL (13.5-17.5); Immature Grans % 1.2; Lymphocytes % 12.8; MCH 30.9 pg (27.0-33.0); MCHC 32.3 % (32.0-36.0); MCV 96 fL (80-95); MPV 8.9 fL (8.0-11.0); Monocytes % 13.5; Neutrophils % 71.3; Platelet Count 446 10^3/uL (130-400); RBC 3.14 10^6/uL (4.36-5.78); RDW 17.4 % (11.8-14.1); RDW-SD 60.2 fL; WBC 7.43 10^3/uL (4.4-10.8)
[2022-11-29 08:20] LABS: ALT 22 U/L (16-63); AST 19 U/L (15-37); Albumin 2.6 g/dL (3.4-5.0); Alkaline Phosphatase 115 U/L (46-116); BUN 9 mg/dL (7-18); Bilirubin, Total 0.2 mg/dL (0.2-1.0); CREATININE 0.9 mg/dL (0.70-1.30); Calcium 9.1 mg/dL (8.5-10.1); Chloride 104 mmol/L (98-107); Estimated GFR 89.62 (mL/min/1.73m2); Glucose 243 mg/dL (74-106); LDH 174 U/L (85-227); Potassium 3.6 mmol/L (3.5-5.1); Sodium 137 mmol/L (136-145)
[2022-12-06] MEDS: Normal Saline Flush 10 ML SYR IVP (13:29)
[2022-12-06] MEDS: Heparin 500 UNITS/5 ML SYRINGE IV (13:29)
[2022-12-06 13:45] LABS: HCT 27.9 % (40.0-50.0); HGB 9.2 g/dL (13.5-17.5); MCV 94 fL (80-95); MPV 10.7 fL (8.0-11.0); Platelet Count 139 10^3/uL (130-400); RBC 2.97 10^6/uL (4.36-5.78); RDW 16.5 % (11.8-14.1); RDW-SD 57.3 fL; WBC 4.99 10^3/uL (4.4-10.8)
[2022-12-06 14:05] LABS: ALT 17 U/L (16-63); AST 14 U/L (15-37); Absolute Neutrophil Count 3.74 10^3/uL (1.2-6.7); Albumin 2.9 g/dL (3.4-5.0); Alkaline Phosphatase 152 U/L (46-116); Anion Gap 7.5 mmol/L (3-11); BUN 11 mg/dL (7-18); Bands % 4; Bilirubin, Total 0.3 mg/dL (0.2-1.0); CO2 27.5 mmol/L (21.0-32.0); CREATININE 0.9 mg/dL (0.70-1.30); Calcium 8.9 mg/dL (8.5-10.1); Chloride 104 mmol/L (98-107); Estimated GFR 89.62 (mL/min/1.73m2); Glucose 135 mg/dL (74-106); LDH 155 U/L (85-227); Potassium 3.3 mmol/L (3.5-5.1); Sodium 139 mmol/L (136-145); Total Protein 5.8 g/dL (6.4-8.2)
[2022-12-06 14:06] LABS: Absolute Lymphocyte Count 0.75 10^3/uL (1.2-3.4); Diff Comment Manual Differential; RBC Morphology Normal
[2022-12-06 14:27] LABS: Ferritin 605 ng/mL (26-388); Iron 34 ug/dL (65-175); Total Iron Binding Capacity 201 ug/dL (250-450); Transferrin Sat 17 % (20-55)
== END 2022-12-19 23:59 | disposition home or self-care (01) ==
LOC: INF 03:36
PROVIDERS: Internal Medicine; PCP Family Medicine; Visit Provider Internal Medicine Hematology & Oncology
DX: C83.38 Diffuse large B-cell lymphoma, lymph nodes of multiple sites (principal); D50.9 Iron deficiency anemia, unspecified; Z45.2 Encounter for adjustment and management of vascular access device
CPT/HCPCS: 36591; 80053; 82728; 83540; 83550; 83615; 83735; 85025

== ENCOUNTER 2023-01-10 03:10 | Outpatient (RCR) | payer MEDICARE, SELFPAY ==
[2022-12-20] MEDS: Normal Saline Flush 10 ML SYR IVP (07:28)
[2022-12-20 07:41] LABS: Abs Immature Grans 0.05 10^3/uL (0.0-0.06); Absolute Basophil Count 0.05 10^3/uL (0.0-0.2); Absolute Eosinophil Count 0.09 10^3/uL (0.0-0.7); Absolute Lymphocyte Count 0.82 10^3/uL (1.2-3.4); Absolute Monocyte Count 1.38 10^3/uL (0.1-0.8); Absolute Neutrophil Count 5.61 10^3/uL (1.2-6.7); Basophils % 0.6; Eosinophils % 1.1; HCT 30.3 % (40.0-50.0); HGB 9.8 g/dL (13.5-17.5); Immature Grans % 0.6; Lymphocytes % 10.3; MCH 30.8 pg (27.0-33.0); MCHC 32.3 % (32.0-36.0); MCV 95 fL (80-95); MPV 9.7 fL (8.0-11.0); Monocytes % 17.3; Neutrophils % 70.1; Platelet Count 264 10^3/uL (130-400); RBC 3.18 10^6/uL (4.36-5.78); RDW 16.3 % (11.8-14.1); RDW-SD 57.4 fL
[2022-12-20 07:55] LABS: ALT 19 U/L (16-63); AST 15 U/L (15-37); Alkaline Phosphatase 104 U/L (46-116); Anion Gap 9.4 mmol/L (3-11); BUN 11 mg/dL (7-18); Bilirubin, Total 0.2 mg/dL (0.2-1.0); CO2 24.6 mmol/L (21.0-32.0); CREATININE 0.9 mg/dL (0.70-1.30); Calcium 9.2 mg/dL (8.5-10.1); Chloride 104 mmol/L (98-107); Estimated GFR 89.62 (mL/min/1.73m2); Glucose 211 mg/dL (74-106); LDH 174 U/L (85-227); Potassium 3.4 mmol/L (3.5-5.1); Sodium 138 mmol/L (136-145); Total Protein 6.3 g/dL (6.4-8.2)
[2022-12-20 08:02] LABS: Iron 33 ug/dL (65-175); Total Iron Binding Capacity 197 ug/dL (250-450); Transferrin Sat 17 % (20-55)
[2022-12-20 08:24] LABS: Ferritin 279 ng/mL (26-388)
[2023-01-10] MEDS: Normal Saline Flush 10 ML SYR IVP (07:29)
[2023-01-10 08:15] LABS: Absolute Basophil Count 0.07 10^3/uL (0.0-0.2); Absolute Eosinophil Count 0.17 10^3/uL (0.0-0.7); Absolute Lymphocyte Count 0.65 10^3/uL (1.2-3.4); Absolute Monocyte Count 1.27 10^3/uL (0.1-0.8); Absolute Neutrophil Count 5.91 10^3/uL (1.2-6.7); Basophils % 0.9; Eosinophils % 2.1; HCT 31.2 % (40.0-50.0); HGB 9.9 g/dL (13.5-17.5); Immature Grans % 1.2; MCHC 31.7 % (32.0-36.0); MCV 95 fL (80-95); MPV 9.6 fL (8.0-11.0); Monocytes % 15.5; Neutrophils % 72.3; Platelet Count 369 10^3/uL (130-400); RDW 15.7 % (11.8-14.1); WBC 8.17 10^3/uL (4.4-10.8)
[2023-01-10 08:29] LABS: Iron 32 ug/dL (65-175); Total Iron Binding Capacity 190 ug/dL (250-450); Transferrin Sat 17 % (20-55)
[2023-01-10 08:33] LABS: ALT 18 U/L (16-63); AST 14 U/L (15-37); Albumin 2.8 g/dL (3.4-5.0); Alkaline Phosphatase 102 U/L (46-116); Anion Gap 10.9 mmol/L (3-11); BUN 11 mg/dL (7-18); Bilirubin, Total 0.2 mg/dL (0.2-1.0); CO2 24.1 mmol/L (21.0-32.0); CREATININE 1.1 mg/dL (0.70-1.30); Calcium 9.3 mg/dL (8.5-10.1); Chloride 106 mmol/L (98-107); Estimated GFR 70.44 (mL/min/1.73m2); Glucose 235 mg/dL (74-106); LDH 207 U/L (85-227); Potassium 3.5 mmol/L (3.5-5.1); Sodium 141 mmol/L (136-145); Total Protein 6.5 g/dL (6.4-8.2)
[2023-01-10 08:59] LABS: Ferritin 261 ng/mL (26-388)
== END 2023-01-18 23:59 | disposition home or self-care (01) ==
LOC: INF 03:10
PROVIDERS: PCP Family Medicine; Visit Provider Internal Medicine Hematology & Oncology
DX: C83.38 Diffuse large B-cell lymphoma, lymph nodes of multiple sites (principal); D50.9 Iron deficiency anemia, unspecified; Z45.2 Encounter for adjustment and management of vascular access device
CPT/HCPCS: 36591; 80053; 82728; 83540; 83550; 83615; 85025

== ENCOUNTER → 2023-01-25 01:31 | Outpatient (CLI) | payer MEDICARE, SELFPAY ==
--- NOTE | 2023-01-25 15:06 | DI.US_ITS ---
APPROVED REPORT EXAM: Comprehensive 2D, Doppler, and color-flow Echocardiogram Patient Location: Out-Patient Woven Label Designer: Gwendolyn Shaffer RDCS (AE) Indications: High risk medication use, Diffuse large B Cell Lymphoma Other Information Study Quality: Adequate Conclusion Normal left ventricular wall thickness and chamber size. Ejection fraction is 50 to 55%. There are no segmental wall motion abnormalities. There is stage I diastolic dysfunction Normal right ventricular size and systolic function Both atria are normal in size Aortic valve is mildly sclerotic and trileaflet without stenosis or regurgitation Normal mitral valve with trace to mild regurgitation Normal tricuspid valve with trace to mild regurgitation. Estimated right ventricular systolic pressu re is 35 mmHg Wall motion Left Ventricle The left ventricle is normal size. The left ventricular systolic function is low normal. The left balwinder tricular ejection fraction is within the normal range. There is normal left ventricular wall thicknes s. There is normal LV segmental wall motion. Transmitral Doppler flow pattern suggests impaired LV re laxation. There is no ventricular septal defect visualized. LVEF is 50-55%. Right Ventricle The right ventricle is normal size. The right ventricular systolic function is normal. Atria The left atrium size is normal. The right atrium size is normal. The interatrial septum is intact wit h no evidence for an atrial septal defect. Aortic Valve The Aortic valve is mildly sclerotic. Aortic valve is trileaflet. There is no aortic valvular stenosi s. No aortic regurgitation is present. Mitral Valve The mitral valve is normal in structure. No evidence of mitral valve stenosis. Trace to mild mitral r egurgitation.. Tricuspid Valve The tricuspid valve is normal in structure. There is no tricuspid valve stenosis. Trace to mild tricu spid regurgitation. The RVSP is 35.5 mmHg. Pulmonic Valve The pulmonary valve is normal in structure. There is no pulmonic valvular stenosis. Mild pulmonic reg urgitation. Great Vessels The aortic root is normal in size. The ascending aorta is normal in size. Aortic arch is normal in ca liber. IVC is normal in size and collapses >50% with inspiration. Pericardium There is no pericardial effusion. 2D Dimensions IVSD d PLAX 0.76 cm M: 0.6-1.2 Ao Root d 3.50 cm M: 3.1 - 3.7 LVPW d PLAX 0.78 cm M: 0.6 - 1.2 Ao Asc Diam d 2.97 cm M: 2.6 - 3.4 LVID d PLAX 5.20 cm M: 4.2 - 5.8 LVDs 3.90 cm M: 2.5 - 4.0 LV EF Teichholz 49.3 % FS 25.13 % LV EDV (Teich) 129.7 mL LV ESV (Teich) 65.8 mL M-Mode TAPSE 2.66 cm (M/F) >1.7 Auto EF LV EDV A4C 129.9 mL LV EDV A2C 153.6 mL LV EDV BP 141.9 mL LV ESV A4C 67.8 mL LV ESV A2C 78.5 mL LV ESV BP 72.9 mL LVEF(%) A4C 47.8 % LVEF(%) A2C 48.9 % LVEF(%) BP 48.6 % LV SV A4C 62.1 ml LV SV A2C 75.1 ml LV SV BP 69.0 ml LV CO A4C 5.0 L/min LV CO A2C 5.6 L/min LV CO BP 5.3 L/min HR A4C 80.91 BPM HR A2C 74.23 BPM LV EDV Index (BP) LV Strain Long Pk Overal Avg (s) 17.93 LA Volume LA Length A4C 4.9 cm LA Length A2C 5.1 cm LA Area A4C s 16.83 cm2 LA Area A2C s 17.16 cm2 LA Vol A4C A-L 49.52 mL LA Vol A2C A-L 48.89 mL LA Vol Biplane A-L 50.5 mL LA Vol/BSA A4C A-L LA Vol/BSA A2C A-L LA Vol/BSA BP A-L 24.9 mL/m2 LA Vol A4C MOD 47.1 mL LA Vol A2C MOD 45.5 mL LA Vol BP MOD 47.4 mL RA Volume RA Area A4C 17.4 cm2 RA ESV A4C (A-L) 48.1mL RA Vol/BSA A4C A-L RA Length A4C 5.4 cm RA ESV A4C (MOD) 45.1mL LV Diastology MV E' medial 0.077 (>0.07 m/s) MV E Vmax 0.75 (0.4-1.3 m/s) MV E/E' MED 9.70 (<14) MV A Vmax 1.10 (0.4-1.3 m/s) MV E' lateral 0.083 (>0.1 m/s) E/A Ratio 0.7 MV E/E' LAT 9.01 (<14) MV E' Average 0.080 m/s MV E/E'(average) 9.34 Aortic Valve AoV Vmax 1.40 m/s LVOT Vmax 1.27 m/s AoV Peak Grad 7.9 mmHg LVOT Peak Grad 6.5 mmHg AoV Area (Vmax) 2.68 cm2 LVOT VTI 0.269 m AoV VTI 0.324 m LVOT Mean Grad 3.4 mmHg AoV Mean Jung. 1.03 m/s LVOT SV 79.75 mL AoV Mean Grad 4.7 mmHg LVOT Diam s 1.90 cm AoV Area (VTI) 2.46 cm2 Velocity Ratio 0.91 Mitral Valve MV DT 344 (160-240 msec) MV Vmax TIPS 1.05 m/s MV Mean Grad 1.9 (<2mmHg) MV VTI 0.331 m Pulmonary Valve PV Vmax 1.09 (0.5-1.5 m/s) RVOT Vmax 0.67 m/s PV Peak Grad 4.7 mmHg RVOT Peak Gr. 1.8 mmHg PV Mean Jung 0.80 m/s RVOT VTI 0.138 m PV Mean Grad 2.8 mmHg RVOT Mean Gr. 1.0 mmHg Tricuspid Valve RA Pressure 3.00 mmHg TR Vmax 2.85 m/s TV S' 0.17 m/s TR Peak Grad 32.4 mmHg RVSP (TR) 35.5 mmHg
== END ==
PROVIDERS: PCP Family Medicine; Visit Provider Internal Medicine Hematology & Oncology
DX: Z79.899 Other long term (current) drug therapy (principal)
CPT/HCPCS: 93306

== ENCOUNTER 2023-01-31 04:11 | Outpatient (RCR) | payer MEDICARE, SELFPAY ==
[2023-01-31] MEDS: Normal Saline Flush 10 ML SYR IVP (07:31)
[2023-01-31 07:50] LABS: Abs Immature Grans 0.06 10^3/uL (0.0-0.06); Absolute Basophil Count 0.07 10^3/uL (0.0-0.2); Absolute Eosinophil Count 0.08 10^3/uL (0.0-0.7); Absolute Lymphocyte Count 0.71 10^3/uL (1.2-3.4); Absolute Neutrophil Count 4.72 10^3/uL (1.2-6.7); Eosinophils % 1.2; HGB 9.7 g/dL (13.5-17.5); Immature Grans % 0.9; Lymphocytes % 10.5; MCH 29.8 pg (27.0-33.0); MCHC 31.3 % (32.0-36.0); MCV 95 fL (80-95); MPV 9.8 fL (8.0-11.0); Monocytes % 16.3; Neutrophils % 70.1; Platelet Count 318 10^3/uL (130-400); RBC 3.26 10^6/uL (4.36-5.78); RDW 16.2 % (11.8-14.1); RDW-SD 55.3 fL; WBC 6.74 10^3/uL (4.4-10.8)
[2023-01-31 08:17] LABS: Iron 43 ug/dL (65-175); Total Iron Binding Capacity 228 ug/dL (250-450); Transferrin Sat 19 % (20-55)
[2023-01-31 08:33] LABS: ALT 24 U/L (16-63); AST 21 U/L (15-37); Albumin 2.9 g/dL (3.4-5.0); Alkaline Phosphatase 99 U/L (46-116); Anion Gap 9.8 mmol/L (3-11); BUN 13 mg/dL (7-18); Bilirubin, Total 0.2 mg/dL (0.2-1.0); CO2 25.2 mmol/L (21.0-32.0); CREATININE 1.1 mg/dL (0.70-1.30); Chloride 105 mmol/L (98-107); Estimated GFR 70.44 (mL/min/1.73m2); Ferritin 233 ng/mL (26-388); Glucose 238 mg/dL (74-106); Potassium 3.4 mmol/L (3.5-5.1); Sodium 140 mmol/L (136-145); Total Protein 6.3 g/dL (6.4-8.2)
[2023-01-31 08:45] LABS: LDH 222 U/L (85-227)
== END 2023-02-18 23:59 | disposition home or self-care (01) ==
LOC: INF 04:11
PROVIDERS: PCP Family Medicine; Visit Provider Internal Medicine Hematology & Oncology
DX: C83.38 Diffuse large B-cell lymphoma, lymph nodes of multiple sites (principal); D50.9 Iron deficiency anemia, unspecified; Z45.2 Encounter for adjustment and management of vascular access device
CPT/HCPCS: 36591; 80053; 82728; 83540; 83550; 83615; 85025

== ENCOUNTER 2023-06-13 05:01 | Outpatient (CLI) | payer MEDICARE, SELFPAY ==
[2023-06-13 10:25] LABS: Abs Immature Grans 0.02 10^3/uL (0.0-0.06); Absolute Basophil Count 0.02 10^3/uL (0.0-0.2); Absolute Eosinophil Count 0.27 10^3/uL (0.0-0.7); Absolute Lymphocyte Count 0.86 10^3/uL (1.2-3.4); Absolute Monocyte Count 1.05 10^3/uL (0.1-0.8); Absolute Neutrophil Count 4.45 10^3/uL (1.2-6.7); Basophils % 0.3; HCT 38.1 % (40.0-50.0); HGB 12.6 g/dL (13.5-17.5); Immature Grans % 0.3; Lymphocytes % 12.9; MCHC 33.1 % (32.0-36.0); MCV 91 fL (80-95); MPV 9.8 fL (8.0-11.0); Monocytes % 15.7; Neutrophils % 66.8; Platelet Count 221 10^3/uL (130-400); RDW 14.4 % (11.8-14.1); RDW-SD 47.8 fL; WBC 6.67 10^3/uL (4.4-10.8)
[2023-06-13 10:37] LABS: ALT 31 U/L (16-63); AST 19 U/L (15-37); Albumin 3.5 g/dL (3.4-5.0); Alkaline Phosphatase 110 U/L (46-116); BUN 14 mg/dL (7-18); Bilirubin, Total 0.3 mg/dL (0.2-1.0); CREATININE 1.1 mg/dL (0.70-1.30); Calcium 8.8 mg/dL (8.5-10.1); Chloride 107 mmol/L (98-107); Estimated GFR 70.01 (mL/min/1.73m2); Glucose 136 mg/dL (74-106); LDH 170 U/L (85-227); Potassium 3.6 mmol/L (3.5-5.1); Sodium 144 mmol/L (136-145); Total Protein 6.6 g/dL (6.4-8.2); Uric Acid 5.9 mg/dL (3.5-7.2)
[2023-06-14 11:30] LABS: IgA 119 mg/dL (85-499); IgG 580 mg/dL (610-1616); IgM 124 mg/dL (35-242)
== END 2023-06-13 05:02 | disposition home or self-care (01) ==
LOC: LBO 05:01
PROVIDERS: PCP Family Medicine; Visit Provider Internal Medicine Hematology & Oncology
DX: C85.98 Non-Hodgkin lymphoma, unspecified, lymph nodes of multiple sites (principal)
CPT/HCPCS: 36415; 80053; 82784; 83615; 84550; 85025

== ENCOUNTER 2023-08-22 07:20 | Emergency (ER) | payer MEDICARE, SELFPAY ==
[2023-08-22 07:23] VITALS: BP 165/75; PULSE 86; RESP 18; TEMP 36.7; O2SAT 97
--- NOTE | 2023-08-22 07:30 | DI.US_ITS ---
Exam(s) US UPPER EXTREMITY VENOUS LT EXAM: US UPPER EXTREMITY VENOUS LT CLINICAL HISTORY: mass at left AC, eval mass/look for dvt TECHNIQUE: GRAYSCALE, COLOR, DOPPLER IMAGING OF THE VENOUS SYSTEM OF THE UPPER EXTREMITY-BILATERAL COMPARISON: CT,PT NM PET CT STANDARD SKULL BASE TO MID-THIGH from 03/06/2023 US POCUS EXAM from 08/22/2023 FINDINGS: Basilic vein: Patent. Normal color-flow and normal compression and augmentation properties. Brachial vein(s):Patent. Normal color flow. Normal compression and augmentation properties. Cephalic vein:Patent. Normal color flow. Normal compression and augmentation properties. Axillary vein: Patent. Normal color flow. Normal compression and augmentation properties. Visualized subclavian vein: Patent. No obvious intraluminal thrombus. In the left antecubital fossa there is a 4.2 x 1.8 x 3.6 cm partially solid partially cystic mass in the superficial subcutaneous tissue layer. May considerations are for neoplastic mass or abscess. Another similar finding is seen in the medial mid upper extremity level measuring approximately 1.8 x 2.2 x 1.9 cm. Most probably similar pathology to the above. There are mildly prominent lymph nodes in the left axilla, measuring up to 2.6 x 2.0 cm size. IMPRESSION: 1. No evidence of venous thrombosis in the left upper extremity. 2. There 2 similar appearing masses in the left upper extremity, 1 in the antecubital fossa on the o ther in the mid medial upper extremity, with measurements as above. First suspicion, given the histo ry here, is for neoplastic lesions. Other main consideration in the correct clinical setting would b e for abscesses. Discussed with ER physician. DATA REPOSITORY:
[2023-08-22 08:00] VITALS: BP 165/75; PULSE 86; RESP 18; TEMP 36.7; O2SAT 97
[2023-08-22 08:02] LABS: Abs Immature Grans 0.04 10^3/uL (0.0-0.06); Absolute Basophil Count 0.03 10^3/uL (0.0-0.2); Absolute Eosinophil Count 0.22 10^3/uL (0.0-0.7); Absolute Lymphocyte Count 0.74 10^3/uL (1.2-3.4); Absolute Monocyte Count 1.07 10^3/uL (0.1-0.8); Absolute Neutrophil Count 6.02 10^3/uL (1.2-6.7); Basophils % 0.4 %; Eosinophils % 2.7 %; HCT 38.4 % (40.0-50.0); HGB 13.2 g/dL (13.5-17.5); Immature Grans % 0.5 %; Lymphocytes % 9.1 %; MCHC 34.4 % (32.0-36.0); MCV 90 fL (80-95); MPV 10.7 fL (8.0-11.0); Monocytes % 13.2 %; Neutrophils % 74.1 %; Platelet Count 199 10^3/uL (130-400); RBC 4.26 10^6/uL (4.36-5.78); RDW 14.4 % (11.8-14.1); RDW-SD 47.4 fL; WBC 8.12 10^3/uL (4.4-10.8)
[2023-08-22 08:04] LABS: ESR 9 mm/hr (0-20)
--- NOTE | 2023-08-22 08:09 | W.ED.GENAD ---
Discharge Plan Disposition Patient Disposition: Home Condition: Good Discharge Details Clinical Impression: Arm skin lesion, left Primary Care Provider: Frederick Medae ED Provider: Payam Galvez Home Meds and New Rx's Prescriptions: No Action All Day Allergy (cetirizine) 10 mg capsule 10 mg PO DAILY PRN amlodipine 5 mg tablet 5 mg PO DAILY Qty: 90 3RF aspirin [Aspirin Low-Strength] 81 MG tablet,chewable 81 mg PO DAILY (DME) blood-glucose meter [[employer]Touch UltraMini] 1 EACH kit 1 ea Miscellaneous DAILY Qty: 1 (DME) blood sugar diagnostic Strip See Dose Instructions .ROUTE .MEDSUPPLY Qty: 100 3RF Dose Instruction: As directed Rx Instructions: test daily (DME) lancets Misc 1 ea Intradermal DAILY Qty: 100 3RF Rx Instructions: test daily hydrocortisone 2.5 % cream with perineal applicator 1 applic MA QD-BID PRN (Reason: hemorrhoids) Qty: 30 3RF lidocaine HCl [Glydo] 2 % jelly in applicator 5 ml topical ONCE Qty: 125 3RF Rx Instructions: as a single dose- apply to rectum allopurinol 100 mg tablet 200 mg PO DAILY Qty: 180 3RF acyclovir 400 mg tablet 400 mg PO BID Proctofoam HC 1-1 % Foam 0 g MA TID Qty: 0 0RF Discharge Instructions Additional Instructions: At this time on my assessment your symptoms do not appear consistent with cellulitis or an abscess. I am concerned for malignancy. Please go down to the oncology clinic for the appointment we have set up for you 12:30 this afternoon. They will continue the evaluation of this lesion. There is concern for potential cancer. If you notice any worsening of your symptoms, or any new symptoms such as vomiting, diarrhea, fever, chills, shortness of breath, chest pain, numbness, weakness, or fainting , please return immediately to the emergency department for reevaluation. Please follow up with your primary care provider as soon as possible for reassessment and reevaluation. As always, it was a pleasure participating in your medical care today. Referrals: Adrianne Ramon MD [ NON-[facility] STAFF PHYSICIAN] - [facility] General Date/Time Provider Initiated Documentation: 08/22/23 07:22. HPI Narrative: This is a pleasant 73-year-old male with a past medical history of diffuse large B cell lymphoma, previous superficial thrombophlebitis, who previously underwent chemotherapy and finished last January, previous gout, previous C. difficile, diabetes mellitus, who presents today for evaluation of lesion on his left arm. Patient states that about 2 weeks ago the antecubital region on his left arm was pinched by a box, he had swelling pain and tenderness there, he went to the urgent care to be evaluated and based on history and exam at that time symptoms were concerning and consistent with hematoma secondary to the trauma. However over the next 2 weeks the size, nature, and visual components did not significantly change and in addition to that this morning he noticed a lesion on the medial aspect of his right upper arm. This was concerning for him, and he and his came to the ER for further assessment. He denies any pain, tenderness, itching, night sweats, fever, chills, or weight loss. He denies any other trauma. Previous location of symptomatology that brought about his initial diagnosis of lymphoma was secondary to swelling in the neck region. He denies any issues there at this time. He denies any other complaints at this time. He has been using moist heat for the past 2 weeks with no improvement of the lesion otherwise. He has not taken any pain medications as he does not have any pain. No other complaints at this time. He is taking a daily aspirin. Related Data Home Medications Medication Instructions Recorded Confirmed aspirin 81 mg chewable tablet 81 mg PO DAILY 06/24/12 08/22/23 (Aspirin Low-Strength) blood-glucose meter ([employer]uch ##1 07/31/16 08/22/23 UltraMini kit) cetirizine 10 mg capsule (All Day 10 mg PO DAILY PRN 01/16/18 08/22/23 Allergy (cetirizine)) blood sugar diagnostic #100 ea 07/10/22 08/22/23 lancets #100 ea 07/10/22 08/22/23 acyclovir 400 mg tablet 400 mg PO BID 10/25/22 08/22/23 hydrocortisone 2.5 % topical cream 1 applic MA QD-BID PRN hemorrhoids 10/28/22 08/22/23 with perineal applicator #30 grams lidocaine HCl 2 % mucosal jelly in 5 ml topical ONCE #125 mL 10/28/22 08/22/23 applicator (Glydo) hydrocortisone 1 %-pramoxine 1 % 0 g MA TID #0 grams 10/29/22 08/22/23 rectal foam (Proctofoam HC) amlodipine 5 mg tablet 5 mg PO DAILY #90 tabs 12/05/22 08/22/23 allopurinol 100 mg tablet 200 mg (2 x 100 mg) PO DAILY #180 06/11/23 08/22/23 tab-caps Previous Rx's Medication Instructions Recorded blood sugar diagnostic #100 ea 07/10/22 lancets #100 ea 07/10/22 hydrocortisone 2.5 % topical cream 1 applic MA QD-BID PRN hemorrhoids 10/28/22 with perineal applicator #30 grams lidocaine HCl 2 % mucosal jelly in 5 ml topical ONCE #125 mL 10/28/22 applicator (Glydo) hydrocortisone 1 %-pramoxine 1 % 0 g MA TID #0 grams 10/29/22 rectal foam (Proctofoam HC) amlodipine 5 mg tablet 5 mg PO DAILY #90 tabs 12/05/22 allopurinol 100 mg tablet 200 mg (2 x 100 mg) PO DAILY #180 06/11/23 tab-caps Allergies Allergy/AdvReac Type Severity Reaction Status Date / Time No Known Allergies Allergy Verified 08/22/23 07:24 General Stated Complaint: Cellulitis BENJI: 3 Review of Systems All systems reviewed & are unremarkable except as noted in HPI and below Exam Narrative Exam Narrative: 1.Const: Well-nourished, Well-developed, appearing stated age 2.Eyes: PERRL, no conjunctival injection, and symmetrical lids. 3.ENT: Atraumatic external nose and ears. Moist MM. Neck: Symmetric, trachea midline, No thyromegaly. 4.CVS: +S1/S2, No murmurs or gallops. Peripheral pulses 2+ and equal in all extremities. Brisk capillary refill in all extremities. 5.RESP: Unlabored respiratory effort. Clear to auscultation bilaterally. No wheezes rales or rhonchi 6.GI: Soft, Nontender/Nondistended, No hepatosplenomegaly. No guarding or rebound. 7.MSK: Normocephalic/Atraumatic, Extremities w/o deformity or ttp No cyanosis or clubbing, Normal movement of all extremities. Patient demonstrates a 3.5 to 4 cm firm, raised, well-circumscribed lesion at the left antecubital region on his left arm. Nontender. External color is a dull red/violaceous. It is not warm or hot. No fluctuance. Proximal to this and on the medial aspect of the left upper extremity demonstrates a similar size lesion, however there is no external change in color. Ultrasound of both areas reveal fatty tissue mass with some cobblestoning. However it is well-circumscribed. None diffuse, with clear delineated borders. 8.Skin: Warm, Dry. No rashes or lesions. Please see musculoskeletal 9.Neuro: alpine patroller II-XII grossly intact. Sensation grossly intact, no focal neurologic deficits. 10.Psych: (AAO) x3. Appropriate mood and affect Course Vital Signs Vital signs: Vital Signs Temperature 36.7 C 08/22/23 07:23 Pulse 86 08/22/23 07:23 Respiratory Rate 18 08/22/23 07:23 Blood Pressure 165/75 H 08/22/23 07:23 Pulse Oximetry 97 08/22/23 07:23 Temperature 36.7 C 08/22/23 08:00 Temperature Source Tympanic 08/22/23 08:00 Pulse 86 08/22/23 08:00 Respiratory Rate 18 08/22/23 08:00 Blood Pressure 165/75 H 08/22/23 08:00 Blood Pressure Position Sitting 08/22/23 08:00 Pulse Oximetry 97 08/22/23 08:00 Oxygen Delivery Method Room Air 08/22/23 08:00 Oxygen Flow Rate 0 08/22/23 07:23 Pain Level 0 08/22/23 08:00 Lab/Test Results Lab/Test Results: Laboratory Tests Range/Units 08/22/23 07:48 WBC (4.4-10.8) 10^3/uL 8.12 RBC (4.36-5.78) 10^6/uL 4.26 L Hgb (13.5-17.5) g/dL 13.2 L Hct (40.0-50.0) % 38.4 L MCV (80-95) fL 90 MCH (27.0-33.0) pg 31.0 MCHC (32.0-36.0) % 34.4 RDW (11.8-14.1) % 14.4 H Plt Count (130-400) 10^3/uL 199 MPV (8.0-11.0) fL 10.7 Immature Gran % % 0.5 Neutrophils % % 74.1 Lymphocytes % % 9.1 Monocytes % % 13.2 Eosinophils % % 2.7 Basophils % % 0.4 Nucleated RBC % (0.0-0.3) % 0.0 Absolute Neutrophils (1.2-6.7) 10^3/uL 6.02 Absolute Lymphocytes (1.2-3.4) 10^3/uL 0.74 L Absolute Monocytes (0.1-0.8) 10^3/uL 1.07 H Absolute Eosinophils (0.0-0.7) 10^3/uL 0.22 Absolute Basophils (0.0-0.2) 10^3/uL 0.03 Medical Decision Making This is a pleasant 73-year-old male with a past medical history of diffuse large B cell lymphoma, previous superficial thrombophlebitis, who previously underwent chemotherapy and finished last January, previous gout, previous C. difficile, diabetes mellitus, who presents today for evaluation of lesion on his left arm. Patient states that about 2 weeks ago the antecubital region on his left arm was pinched by a box, he had swelling pain and tenderness there, he went to the urgent care to be evaluated and based on history and exam at that time symptoms were concerning and consistent with hematoma secondary to the trauma. However over the next 2 weeks the size, nature, and visual components did not significantly change and in addition to that this morning he noticed a lesion on the medial aspect of his right upper arm. This was concerning for him, and he and his came to the ER for further assessment. He denies any pain, tenderness, itching, night sweats, fever, chills, or weight loss. He denies any other trauma. Previous location of symptomatology that brought about his initial diagnosis of lymphoma was secondary to swelling in the neck region. He denies any issues there at this time. He denies any other complaints at this time. He has been using moist heat for the past 2 weeks with no improvement of the lesion otherwise. He has not taken any pain medications as he does not have any pain. No other complaints at this time. He is taking a daily aspirin. Patient demonstrates a 3.5 to 4 cm firm, raised, well-circumscribed lesion at the left antecubital region on his left arm. Nontender. External color is a dull red/violaceous. It is not warm or hot. No fluctuance. Proximal to this and on the medial aspect of the left upper extremity demonstrates a similar size lesion, however there is no external change in color. Ultrasound of both areas reveal fatty tissue mass with some cobblestoning. However it is well-circumscribed. None diffuse, with clear delineated borders. My personal limited bedside ultrasound shows no clear evidence of DVT. The area has no warmth to suggest cellulitis. It is nonfluctuant and does not seem to demonstrate evidence of an abscess. Limited bedside ultrasound demonstrates a well-circumscribed lesion, she is notably hard. There appears to be cobblestoning within it, but this is concerning for potential lymph mass. The proximal lesion has near identical appearance. We will get labs to evaluate for significant white count abnormalities, bleeding abnormalities, or other complications. We will get formal ultrasound for further assessment. Will monitor closely and reassess. 10:41 AM Laboratory workup has returned, no elevated white count, hemoglobin slightly decreased at 13.2, no elevation in his absolute neutrophil count, lymphocytes slightly low at 0.74, coagulation studies relatively stable. Electrolytes normal, CRP mildly elevated, ESR normal. Repeat exam continues to show no evidence of fever, tachycardia, chills, or atypical warmth or evidence to suggest cellulitis or active infection. Ultrasound shows no evidence of DVT, 2 lesions were noted which were also felt on exam, there is also evidence of notable proximal lymphadenopathy. Concern for neoplastic process. No blood clots or DVTs were noted. Patient is otherwise stable. I contacted oncology and discussed the case with his oncologist Dr. Pacheco. She would like to see him at 1230 this afternoon. Patient will be transition to home. No evidence at this time of abscess requiring antibiotics, DVT requiring anticoagulation or other acute process. Will follow-up closely with on college he been recommend potential biopsy and further evaluation. Discussed red flags which to return. I have extensively reviewed the treatment plan and discharge instructions with the patient and their family. I have addressed all patient concerns at this time. The patient and family was made aware of what symptoms to monitor for that would warrant a return to the emergency department. Discussed the plan with the patient and family, they demonstrate verbal understanding and agreement with our assessment and plan at this time. The documentation in this chart was dictated using [employer] dictation software. Please excuse any dictation errors. FINDINGS: Basilic vein: Patent. Normal color-flow and normal compression and augmentation properties. Brachial vein(s):Patent. Normal color flow. Normal compression and augmentation properties. Cephalic vein:Patent. Normal color flow. Normal compression and augmentation properties. Axillary vein: Patent. Normal color flow. Normal compression and augmentation properties. Visualized subclavian vein: Patent. No obvious intraluminal thrombus. In the left antecubital fossa there is a 4.2 x 1.8 x 3.6 cm partially solid partially cystic mass in the superficial subcutaneous tissue layer. May considerations are for neoplastic mass or abscess. Another similar finding is seen in the medial mid upper extremity level measuring approximately 1.8 x 2.2 x 1.9 cm. Most probably similar pathology to the above. There are mildly prominent lymph nodes in the left axilla, measuring up to 2.6 x 2.0 cm size. IMPRESSION: 1. No evidence of venous thrombosis in the left upper extremity. 2. There 2 similar appearing masses in the left upper extremity, 1 in the antecubital fossa on the other in the mid medial upper extremity, with measurements as above. First suspicion, given the history here, is for neoplastic lesions. Other main consideration in the correct clinical setting would be for abscesses. Discussed with ER physician. Quality:SDOH Health Related Social Needs: No Data to Display PFSH All Active Problems (Updated 08/22/23 @ 09:40 by Payam Galvez DO) Arm skin lesion, left (Acute) History of lymphoma (Acute) Hematoma of arm (Acute) Superficial thrombophlebitis of left upper extremity (Acute) Acute hypokalemia (Acute) Pneumonia (Acute) C. difficile colitis (Acute) Rigors (Acute) SIRS (systemic inflammatory response syndrome) (Acute) Hypokalemia (Acute) Hyponatremia (Acute) Urinary retention (Acute) Thrombocytopenia (Chronic) Hemorrhoid thrombosis (Acute) B-cell lymphoma (Acute) Diabetes mellitus (Chronic 07/03/12) BS deterioration due to dietary indiscretion Gout (Acute 12/24/07) Medical History Airway compromise Lymphadenopathy Pain Lymphadenitis Actinic keratosis Fracture of phalanx of finger SOBOE (shortness of breath on exertion) likely due to reduced 02 carrying capacity due to anemia Prostate cancer (10/05/14) 2014 radiation RX/lupron Polyp of colon tiny rectal hyperplastic polyp Overweight regular exercise/dietary discretion advised Nystagmus History of tobacco use Essential hypertension (12/27/12) Diverticulosis of colon without diverticulitis Cataract (07/03/12) Anemia EGD-HH, ESOPH INFLAMMATION; 11/25 COLO-DIVERTICULOSIS, TINY RECTAL POLYP c-scope 2012: hyperpl. polyp Family History Mother , AGE 38 Alcohol abuse Father , AGE 76 Diabetes Sister Diabetes Maternal Grandfather , age 80 Stroke Maternal Grandmother , age 88 Diabetes Social History Smoking/Tobacco Use Status: Former Tobacco Use Quit Date: 02/20/84 Smokeless tobacco user: chewing tobacco (former use) Second Hand Exposure: No Smoking risk assessment performed?: Yes Alcohol Intake: current Alcohol Intake frequency: a few times a month Alcohol type: beer Drug use: Never Substance use type: does not use Caregiver/Support person: No Household members: spouse Housing: apartment Communication Needs: Corrective Lenses Do you need help understanding health information?: Never Pets and animals: No Sexually active: No Do you think of yourself as: straight/heterosexual Current gender identity: male What is your relationship status?: How often do you talk on the phone with friends or family?: three or more times per week How often do you get together with friends or relatives?: three or more times per week How often do you attend confucianism or rastafari services?: 1-3 times per year Do you belong to any clubs or organized social groups?: yes Panel score (0-1 are the most socially isolated patients): 3 What type of physical activity do you participate in: walking and bicycling Duration: 60-90 minutes/day Frequency: 3-4 times per week Lily/Nondenominational: Moravian Special lily needs: No Seatbelt use: always Helmet use: Yes Helmet use: always Drive intox or ride w/intox driver retraining instructor: No Do you feel safe at home: Yes Do you feel safe in your relationship?: Yes POCUS Exam (ED) Limited Soft Tissue Exam DATE OF EXAM: 08/22/23 TIME OF EXAM: 09:25 PROVIDER THAT PERFORMED THE STUDY: Payam Galvez IS THIS A REPEAT EXAM DURING THIS ENCOUNTER: No LOCATION OF EXAM: Upper extremity/left (Lesion) REASON FOR EXAM: Mass VISUALIZED STRUCTURES: Fascia, Muscle and Subcutaneous tissue PERTINENT FINDINGS/IMPRESSION: Cobblestoning internal to the two lesions and Enlarged lymph nodes AC and medial upper ext . Exam Complete Limited Vascular Exam DATE OF EXAM: 08/22/23 TIME OF EXAM: 09:24 PROVIDER THAT PERFORMED THE STUDY: Payam Galvez IS THIS A REPEAT EXAM DURING THIS ENCOUNTER: No Vascular Exam: Left upper extremity REASON FOR EXAM: Left upper extremity pain VISUALIZED STRUCTURES: Left axillary vein, Left basilic vein, Left brachial vein and Left cephalic vein PERTINENT FINDINGS/IMPRESSION: Complete compressibility left upper extremity Exam complete DIFFERENTIAL DIAGNOSES: No evidence of DVT
[2023-08-22 08:14] LABS: ALT 27 U/L (16-63); AST 23 U/L (15-37); Albumin 3.6 g/dL (3.4-5.0); Alkaline Phosphatase 122 U/L (46-116); Anion Gap 10.9 mmol/L (3-11); BUN 15 mg/dL (7-18); C-Reactive Protein 2.29 mg/dL (<or=0.5); CO2 24.1 mmol/L (21.0-32.0); CREATININE 1.3 mg/dL (0.70-1.30); Chloride 105 mmol/L (98-107); Estimated GFR 57.29 (mL/min/1.73m2); Glucose 209 mg/dL (74-106); Potassium 3.5 mmol/L (3.5-5.1); Sodium 140 mmol/L (136-145); Total Protein 6.9 g/dL (6.4-8.2)
[2023-08-22 08:16] LABS: INR 1.2 (0.9-1.1); PTT Activated 23.8 sec (23.6-32.8); Prothrombin Time 11.6 sec (9.1-11.1)
[2023-08-22 10:50] VITALS: BP 158/68; PULSE 80; RESP 18; TEMP 36.7; O2SAT 97
== END 2023-08-22 10:51 | disposition home or self-care (01) ==
PROVIDERS: Emergency Provider Student in an Organized Health Care Education/Training Program; PCP Family Medicine
DX: L98.9 Disorder of the skin and subcutaneous tissue, unspecified (principal); Z86.72 Personal history of thrombophlebitis; Z85.72 Personal history of non-Hodgkin lymphomas
CPT/HCPCS: 36415; 76882; 80053; 85652; 93971; 99285; 85025; 85610; 85730; 86140; 99284

== ENCOUNTER → 2023-09-17 01:28 | Outpatient (CLI) | payer MEDICARE, SELFPAY ==
--- OUTSIDE RECORDS SUMMARY | 2023-09-17 01:32 | XMS_ITS | Encounter Summary ---
Author Organization [facility] Address [address] [place] [address] Care Team Providers Care Slack Cooper Name Role Phone Bobby Headley MD Primary Care Provider [phone] Encounter Details Date Type Department Care Team (Late st Contact Info) Description 11/16/2022 Lab Requisition [facility] Pathology & Laboratory Medicine - [facility] [address] [place], [place] [address] Outr Resulting Lab, Provider Social History Tobacco Use Types Packs/Day Years Used Date Smoking Tobacco: Never Assessed Sex and Gender Information Value Date Recorded Sex Assigned at Not on file Gender Identity Not on file Sexual Orientation Not on file documented as of this encounter Plan of Treatment Not on file documented as of this encounter Procedures Procedure Name Priority Date/Time Associated Diagnosis Comments FECAL BACTERIAL PATHOGENS BY PCR Routine 11/16/2022 0:35 EDT documented in this encounter Results * FECAL BACTERIAL PATHOGENS BY PCR (11/16/2022 0:35 EDT) Salmonella PCR Negative Negative 11/16/2022 23:10 EDT [facility] Shigella/Enteroin vasive E. coli Negative Negative 11/16/2022 23:10 EDT [facility] HN LAB CAMPYLOBACTER PCR Negative Negative 11/16/2022 23:10 EDT [facility] Shiga Toxin PCR Negative Negative 23:10 EDT [facility] Feces SPECIMEN FROM RECTUM / Unknown 11/16/2022 0:35 EDT 11/16/2022 18:28 EDT Provider Outr Resulting Lab MICROBIOLOGY - GENERAL ORDERABLES [facility] [address] [place] [address] documented in this encounter Visit Diagnoses Not on filedocumented in this encounter Care Teams Slack Cooper Relationship Specialty Start Date End Date Bobby Headley MD [address] [place] [id number] PCP - General 01/18/12 documented as of this encounter
--- OUTSIDE RECORDS SUMMARY | 2023-09-17 01:32 | XMS_ITS | Encounter Summary ---
Author Organization [facility] Address [address] [place] [address] Care Team Providers Care Milling Machine Operator Gear Name Role Phone Bobby Headley MD Primary Care Provider [phone] Encounter Details Date Type Department Care Team (Late st Contact Info) Description 10/26/2022 Lab Requisition [facility] Pathology & Laboratory Medicine - [address] [id number] Outr Resulting Lab, Provider Social History Tobacco [...] Procedure Name Priority Date/Time Associated Diagnosis Comments LEGIONELLA ANTIGEN DETECTION, URINE Routine 10/25/2022 6:05 EDT documented in this encounter Results * LEGIONELLA ANTIGEN DETECTION, URINE (10/25/2022 6:05 EDT) Legionella Antigen Detection Negative Negative 10/26/2022 23:03 EDT [facility] Urine URINE / Unknown 10/25/2022 6 :05 EDT 10/26/2022 22:47 EDT Provider Outr Resulting Lab MICROBIOLOGY - GENERAL ORDERABLES [facility] [address] [place] [address] documented in this encounter Visit Diagnoses Not on filedocumented in this encounter Care Teams Milling Machine Operator Gear Relationship Specialty Start Date End Date Bobby Headley MD [address] [place] [id number] PCP - General 01/18/12 documented as of this encounter
--- OUTSIDE RECORDS SUMMARY | 2023-09-17 01:32 | XMS_ITS | Referral Summary ---
Author Organization [facility] Address [address] [place] [address] Care Team Providers Care Outdoor Guide Name Role Phone Bobby Headley MD Primary Care Provider [phone] Social History Tobacco Use Types Packs/Day Years Used Date Smoking Tobacco: Never Assessed Sex and Gender Information Value Date Recorded Sex Assigned at Not on file Gender Identity Not on file Sexual Orientation Not on file Plan of Treatment Not on file Care Teams Outdoor Guide Relationship Specialty Start Date End Date Bobby Headley MD [address] [place] [phone] PCP - General 01/18/12
--- OUTSIDE RECORDS SUMMARY | 2023-09-17 01:32 | XMS_ITS | Clinical Summary ---
Author Organization [facility] Address [address] [place] [address] Care Team Providers Care Wallpaper Hanger Helper Name Role Phone Bobby Headley MD Primary Care Provider [phone] Social History Tobacco Use Types Packs/Day Years Used Date Smoking Tobacco: Never Assessed Sex and Gender Information Value Date Recorded Sex Assigned at Not on file Gender Identity Not on file Sexual Orientation Not on file Plan of Treatment Health Maintenance Due Date Last Done Comments Hepatitis C Screen 1948 RSV Immunization ( o r 60+ Years) (1 - 1-dose 60+ series) 2008 Fall Risk Screening 2013 COVID-19 Vaccine (24 season) 2022 Care Teams Wallpaper Hanger Helper Relationship Specialty Start Date End Date Bobby Headley MD [address] [place] [address] [phone] PCP - General 01/18/12
--- OUTSIDE RECORDS SUMMARY | 2023-09-17 01:32 | XMS_ITS | Encounter Summary ---
Author Organization [facility] Address [address] [place] [address] Care Team Providers Care Heat Treat Inspector Name Role Phone Bobby Headley MD Primary Care Provider Encounter Details Date Type Department Care Team (Late st Contact Info) Description 06/13/2023 Lab Requisition [facility] Pathology & Laboratory Medicine - [address] [id number] Outr Resulting Lab, Provider Social History Tobacco [...] Procedure Name Priority Date/Time Associated Diagnosis Comments IMMUNOGLOBULINS Routine 06/13/2023 10:17 EDT documented in this encounter Results * (ABNORMAL) IMMUNOGLOBULINS (06/13/2023 10:17 EDT) IgG 580(L) 610 - 1,616 mg/dL 06/14/2023 11:[address] [facility] IgA 119 85 - 499 mg/dL 06/14/2023 11:[address] [facility] IgM 124 35 - 242 mg/dL 06/14/2023 11:[address] [facility] Blood VENOUS BLOOD / Unknown 06/13/2023 10:17 EDT 06/13/2023 17:36 EDT Provider Outr Resulting Lab CHEMISTRY & BLOOD GAS ORDERABLES [facility] [address] [place] [address] documented in this encounter Visit Diagnoses Not on filedocumented in this encounter Care Teams Heat Treat Inspector Relationship Specialty Start Date End Date Bobby Headley MD [address] [phone] PCP - General 01/18/12 documented as of this encounter
--- OUTSIDE RECORDS SUMMARY | 2023-09-17 01:32 | XMS_ITS | Encounter Summary ---
Author Organization [facility] Address [address] [place] [address] Care Team Providers Care Pin Maker Name Role Phone Bobby Headley MD Primary Care Provider [phone] Encounter Details Date Type Department Care Team (Late st Contact Info) Description 10/11/2022 Lab Requisition [facility] Pathology & Laboratory Medicine - [address] [id number] Outr Resulting Lab, Provider Social History Tobacco [...] Priority Date/Time Associated Diagnosis Comments IMMUNOGLOBULINS Routine 10/11/2022 10:55 EDT documented in this encounter Results * IMMUNOGLOBULINS (10/11/2022 10:55 EDT) IgG 735 610 - 1,616 mg/dL 10/12/2022 9:35 EDT [facility] IgA 182 85 - 499 mg/dL 10/12/2022 9:35 EDT [facility] IgM 233 35 - 242 mg/dL 10/12/2022 9:35 EDT [facility] Blood VENOUS BLOOD / Unknown 10/11/2022 10:55 EDT 10/11/2022 17:38 EDT Provider Outr Resulting Lab CHEMISTRY & BLOOD GAS ORDERABLES [facility] [address] [place] [address] documented in this encounter Visit Diagnoses Not on filedocumented in this encounter Care Teams Pin Maker Relationship Specialty Start Date End Date Bobby Headley MD [address] [place] [id number] PCP - General 01/18/12 documented as of this encounter
--- OUTSIDE RECORDS SUMMARY | 2023-09-17 01:33 | XMS_ITS | Encounter Summary ---
Author Organization [facility] Address [address] [place] [address] Care Team Providers Care Dynamometer Repairer Name Role Phone Bobby Headley MD Primary Care Provider [phone] Encounter Details Date Type Department Care Team (Late st Contact Info) Description 10/11/[address] [facility] Pathology & Laboratory Medicine - [address] [address] Dedrick Quintanilla MD [address] [facility], [address] [place] [address] Encounter for other general examination Social History Tobacco Use Types Packs/Day Years Used Date Smoking Tobacco: Never Assessed Sex and Gender Information Value Date Recorded Sex Assigned at Not on file Gender Identity Not on file Sexual Orientation Not on file documented as of this encounter Plan of Treatment Not on file documented as of this encounter Procedures Procedure Name Priority Date/Time Associated Diagnosis Comments RUSSEL TESTCALEB Today 10/05/2022 8:00 EDT Encounter for other general examination documented in this encounter Results * CALEB BELLA (10/05/2022 8:00 EDT) Rebeccaaneous Caleb Lloyd SEE NOTE 10/16/2022 15:45 EDT [facility] Comment: Test ?Result ?Flag ??Unit ??RefValue B-cell Lymphoma, FISH, Tissue ??Result Summary ?Negative ?Interpretation ?SEE NOTE ?No MYC rearrangement and no fusion of MYC and IGH was ?observed, therefore this makes unlikely the possibility of ?high-grade B-cell lymphoma with MYC and BCL2 and/or BCL6 ?rearrangements (double-hit lymphoma; Chele et al., WHO ?Classification of Tumours of Haematopoietic and Lymphoid ?Tissues, [employer]:Agrawal, 2017). ?Clinical and pathologic correlation is recommended. ?FISH studies interpreted in consultation with Cely ?Ciara Solares ??Result Table ?SEE NOTE ? Abnormality Name ? Result ? Abn% ? Cutoff% ? 8q24.1(MYC sep) ?Normal ?<25.0 ? t(8;14) MYC/IGH fusion ? Normal ?<15.0 ?Result ?Interphase FISH is normal for all loci studied. ??Reason for Referral ? r/o double hit lymphoma ??Specimen ?Tissue, Slides, Formalin ??Source ?Tongue ?Tissue ID ? [id number] ?Method ?SEE NOTE ?Locus and probes ? [Strategy;#Nuclei;Class] ?8CEN(D8Z2),8q24.1(MYC),14q32(IGH) ?[DFISH;100;AM] ?8q24.1(5'MYC,3'MYC) ?[BAP;100;AM] ?Probe strategies include: ?DFISH=dual color, double fusion; ?BAP=break-apart probe. ?Scoring Method: Manual ?Probe vendors include: ?AM = [employer] ([place], [place]) ??Additional Information ?Not Reported ?Disclaimer ?SEE NOTE ?Applicable to Analyte Specific Reagent (ASR) and Laboratory ?Developed Tests (LDT). This test was developed and its ?performance characteristics determined by [facility] in a ?manner consistent with CLIA requirements. It has not been ?cleared or approved by the U.S. Food and Drug ?Administration. Testing results are valid for ?non-decalcified paraffin embedded specimens fixed in 10% ?neutral buffered formalin between 6 and 72 hours. Results ?from specimens fixed outside these parameters should be ?interpreted accordingly. This FISH test does not rule out ?other chromosome abnormalities. ??Released By ? Masha Padilla M.D. ?Test Performed by: ?[facility] ?[address] [place] [address] ?Respite Coordinator: Jose David Lowry M.D. Ph.D.; CLIA# [id number] Tissue TISSUE SPECIMEN / Unknown 10/05/2022 8:00 EDT 10/11/2022 7:41 EDT Dedrick Quintanilla MD CHEMISTRY & BLOOD GA S ORDERABLES Performing Organization Address City/State/[facility] Co de Phone Number [facility] [address] [place] [address] documented in this encounter Visit Diagnoses Diagnosis Encounter for other general examination documented in this encounter Care Teams Dynamometer Repairer Relationship Specialty Start Date End Date Bobby Headley MD [address] [place] [address] PCP - General 01/18/12 documented as of this encounter
--- OUTSIDE RECORDS SUMMARY | 2023-09-17 01:33 | XMS_ITS | Encounter Summary ---
Author Organization [facility] Address [address] [place] [address] Care Team Providers Care Bondactor Machine Operator Name Role Phone Bobby Headley MD Primary Care Provider [phone] Encounter Details Date Type Department Care Team (Late st Contact Info) Description 10/06/2022 Lab Requisition [facility] Pathology & Laboratory Medicine - [facility] [address] [place] [address] Lg Ramírez MD [address] [place] [address] Generalized enlarged lymph nodes Social History Tobacco Use Types Packs/Day Years Used Date Smoking Tobacco: Never Assessed Sex and Gender Information Value Date Recorded Sex Assigned at Not on file Gender Identity Not on file Sexual Orientation Not on file documented as of this encounter Plan of Treatment Not on file documented as of this encounter Procedures Procedure Name Priority Date/Time Associated Diagnosis Comments NON BED PLACEMENT COORDINATOR/FNA CYTOLOGY Today 10/05/2022 8:00 EDT Generalized enlarged lymph nodes documented in this encounter Results * NON BED PLACEMENT COORDINATOR/FNA CYTOLOGY (10/05/2022 8:00 EDT) Note to Patient The following pathology results have been interpreted by your pathologist and may be available to you before your health provider has had the opportunity to review them. Please allow time for your provider to receive these results and explore management options, if applicable. 10/09/2022 11:35 EDT [facility] Final Diagnosis A. LYMPH NODE, NECK, LATERALITY NOT SPECIFIED, ULTRASOUND-GUIDED FINE-NEEDLE ASPIRATION: - Mixed lymphoid population present, cannot exclude lymphoproliferative disorder. See comment. - Negative for metastatic carcinoma. 10/09/2022 11:35 [facility] Diagnosis Comment The specimen consists of a single thin prep slide with a mixed population lymphocytes. A lymphoproliferative disorder cannot be excluded based on this specimen alone. Correlation with the concurrent flow cytometry report ([id number]) and surgical biopsy specimen ([id number]) is essential. 10/09/2022 11:35 [facility] Attestation By the signature below, the attending physician certifies that they have personally conducted a gross and/or microscopic examination of the described specimens and rendered or confirmed the above diagnosis. 10/09/2022 11:35 [facility] at 1135 Clinical History Massive LAD; prostate cancer; R59.1 10/09/2022 11:35 [facility] Gross Description A. One vial of CytoLyt was received and processed by selective cellular enhancement technique. 10/09/2022 11:35 [facility] Performing Lab [facility] 10/09/2022 11:35 [facility] Scanned Images 10/09/2022 11:35 [facility] Fine Needle Aspirate ENTIRE LYMPH NODE / Unknown 10/05/2022 8:00 EDT 10/06/2022 6:21 EDT Lg Ramírez MD PATHOLOGY ORDERABLES [facility] [address] [place] [address] documented in this encounter Visit Diagnoses Diagnosis Generalized enlarged lymph nodes Enlargement of lymph nodes documented in this encounter Care Teams Bondactor Machine Operator Relationship Specialty Start Date End Date Bobby Headley MD [address] [place] [id number] PCP - General 01/18/12 documented as of this encounter
--- OUTSIDE RECORDS SUMMARY | 2023-09-17 01:33 | XMS_ITS | Encounter Summary ---
Author Organization [facility] Address [facility] [place] [address] Care Team Providers Care Principal Clerk Typist Name Role Phone Frederick Meade MD Primary Care Provider [phone] Reason for Visit * Reason Onset Date Comments New Medication Request 09/12/2023 revlimid Encounter Details Date Type Department Care Team (Late st Contact Info) Description 09/12/2023 Telephone Hematology/Oncology at [address] [address] Polly Orellana RN New Medication Request (revlimid) Social History Tobacco Use Types Packs/Day Years Used Date Smoking Tobacco: Former Cigarettes Q uit: 1985 Smokeless Tobacco: Former Quit: 02/19/1986 Comments:started smoking in highschool Alcohol Use Standard Drinks/Week Comments Yes 1 (1 standard drink = 0.6 oz pur e alcohol) 3-4 beers month Overall Financial Resource Strain (CARDIA) Answe r Date Recorded How hard is it for you to pa y for the very basics like food, housing, medical care, and heating? Not hard at all 10/11/2022 Hunger Vital Sign Answer Date Recorded Within the past 12 months, y ou worried that your food would run out before you got the money to buy more. Never true 10/12/19 Within the past 12 months, t he food you bought just didn't last and you didn't have money to get more. Never true 10/11/2022 PRAPARE - Transportation Answer Date Re corded In the past 12 months, has l ack of transportation kept you from medical appointments or from getting medications? No 09/20 In the past 12 months, has l ack of transportation kept you from meetings, work, or from getting things needed for daily living? No 10/11/2022 Housing Stability Vital Sign Answer Willian e Recorded In the last 12 months, was t here a time when you were not able to pay the mortgage or rent on time? No 10/11/2022 In the last 12 months, how many places have you lived? 1 10/11/2022 In the last 12 months, was t here a time when you did not have a steady place to sleep or slept in a fci (including now)? No 10/11/2022 Sex and Gender Information Value Date Recorded Sex Assigned at Not on file Gender Identity Not on file Sexual Orientation Not on file documented as of this encounter Miscellaneous Notes * Telephone Encounter - Polly Orellana RN - 09/12/2023 1:53 PM EDT Prescriber online survey done 09/12/23 with the [employer] Revlimid [facility] Program Revlimid Auth # [id number] Pt Survey done on 09/12/23 Prescription to be manually faxed to [facility] [phone] phone [phone] after obtaining signature Adrianne Ramon MD Script start date is around Sep 25 Revlimid 20 mg daily X 21 Days/ 28 day cycle Pt is in medication compliance with above medication (aware of dose, frequency, route,name of drug,s+s of potential side effects). Aware of how to take oral chemo and aware to call clinic with questions or concerns Next refill 10/10/23 Next start date 10/24/23 documented in this encounter Plan of Treatment Upcoming Encounters Date Type Department Care Team (Late st Contact Info) Description 09/19/2023 8:00 AM EDT Infusion Hematology Oncology at [address] [phone] 09/21/2023 9:30 AM EDT Office Visit Hematology [place] [address] Micha Givens Jr., MD [facility] [place] [address] 09/21/2023 10:30 AM EDT Clinical Support Hematology [place] [address] Danii Her RN 09/26/2023 8:30 AM EDT Infusion Hematology Oncology at [address] [phone] 10/03/2023 9:00 AM EDT Office Visit Hematology/Oncology at [address] [phone] Adrianne Ramon MD [facility] [address] [place] [address] Yael Merlos, KARLA [facility] [place] [address] 10/03/2023 9:30 AM EDT Infusion Hematology Oncology at [address] [phone] 10/10/2023 8:30 AM EDT Infusion Hematology Oncology at [address] [phone] documented as of this encounter Visit Diagnoses Not on filedocumented in this encounter Care Teams Principal Clerk Typist Relationship Specialty Start Date End Date Frederick Meade MD [address] [place] [address] [address] [place] [address] PCP - General Family Medicine 11/29/17 documented as of this encounter
--- OUTSIDE RECORDS SUMMARY | 2023-09-17 01:33 | XMS_ITS | Encounter Summary ---
Author Organization [facility] Address [address] [place] [address] Care Team Providers Care Pot Pusher Name Role Phone Bobby Headley MD Primary Care Provider [phone] Encounter Details Date Type Department Care Team (Late st Contact Info) Description 10/06/2022 Lab Requisition [facility] Pathology & Laboratory Medicine - [facility] [address] [place] [address] Lg Ramírez MD [address] [place] [address] Generalized enlarged lymph nodes Social History [...] Procedure Name Priority Date/Time Associated Diagnosis Comments LEUKEMIA/LYMPHOMA PANEL BY FLOW CYTOMETRY Today 10/05/2022 8:00 EDT documented in this encounter Results * LEUKEMIA/LYMPHOMA PANEL BY FLOW CYTOMETRY (10/05/2022 8:00 EDT) Final Immunophenotypic Interpretation Base of tongue, flow cytometric analysis: -CD5/CD10 negative B-cell lymphoproliferative disorder. See comment. 12:09 EDT [facility] Comment The results of flow cytometry are those of involvement by a lymphoproliferative disorder of B-cell lineage expressing surface lambda light chains. The immunophenotypic profile is non-specific.. Cell size, as assessed by light scatter criteria, suggests a large B-cell lymphoma. Correlation of these findings with morphologic and clinical data is essential. Please refer to report [id number] for morphologic details. 3 12:09 [facility] Attestation By the signature below, the attending physician certifies that they have 1) personally conducted a gross and/or microscopic examination of the described specimen(s), and/or personally interpreted the results of laboratory testing of the described specimen(s), and 2) personally rendered or confirmed the above diagnosis. 3 12:09 [facility] at 1209 Clinical History 72 yo male with massive LAD (cervical/tongue/ret rophar.) 3 12:09 [facility] Description The specimen consists of tissue from the base of the tongue from which a single cell suspension is prepared. Gating is performed using CD45 fluorescence and side scatter. Cellular viability (assessed by 7-AAD exclusion) is good (94%) among the CD45 positive events. Scatter plots incorporating all of the markers have been interpreted and evaluated for the presence or absence of abnormal cell populations. Only pertinent abnormal findings are included. If not otherwise addressed all other markers were normal/negative. There is a clonal population of B-lymphocytes accounting for 60% of the lymphocytes. The cells comprising this population are positive for CD19, partial CD20, and dim surface lambda light chain. They are negative for CD5, CD10 and surface kappa light chain. By light scatter criteria, the cell size is larger than normal lymphocytes. A minority of the lymphoid cells are T-lymphocytes (CD3+CD5+) with CD4+ and CD8+ subsets represented. 3 12:09 [facility] Flow Markers CD10, CD19, CD20, CD3, CD4, CD45, CD5, CD8, [place], and Lambda 3 12:09 [facility] FDA Disclaimer This test was developed and its performance characteristics determined by the Department of Pathology and Laboratory Medicine, [facility], [place], [place]. It has not been cleared or approved by the U.S. Food and Drug Administration. FDA does not require this test to go through premarket FDA review. This test is used for clinical purposes. It should not be regarded as investigational or for research. This laboratory is certified under the Clinical Laboratory Improvement Amendments (CLIA) as qualified to perform high complexity clinical laboratory testing. 3 12:09 EDT [facility] Sample Analyzed Date and Time 10/06/22 12:30 3 12:09 EDT [facility] Scanned Images 3 12:09 EDT [facility] Tissue STRUCTURE OF ROOT OF TONGUE / Unknown 10/05/2022 8:00 EDT 10/06/2022 9:32 EDT Lg Ramírez MD PATHOLOGY ORDERABLES [facility] [address] [place] [address] documented in this encounter Visit Diagnoses Diagnosis Generalized enlarged lymph nodes Enlargement of lymph nodes documented in this encounter Care Teams Pot Pusher Relationship Specialty Start Date End Date Bobby Headley MD [address] [place] [id number] PCP - General 01/18/12 documented as of this encounter
--- OUTSIDE RECORDS SUMMARY | 2023-09-17 01:33 | XMS_ITS | Encounter Summary ---
Author Organization [facility] Address [address] [place] [address] Care Team Providers Care Magazine Designer Name Role Phone Bobby Headley MD Primary Care Provider [phone] Encounter Details Date Type Department Care Team (Late st Contact Info) Description 09/01/2014 Results Only [facility] [phone] Tk Vergara MD [address] [place] [phone] Social History Tobacco Use Types Packs/Day Years Used Date Smoking Tobacco: Never Assessed Sex and Gender Information Value Date Recorded Sex Assigned at Not on file Gender Identity Not on file Sexual Orientation Not on file documented as of this encounter Plan of Treatment Not on file documented as of this encounter Procedures Procedure Name Priority Date/Time Associated Diagnosis Comments SURGICAL PATHOLOGY Routine 09/01/2014 18 :16 EDT documented in this encounter Results * SURGICAL PATHOLOGY (09/01/2014 18:16 EDT) Pathology Report: SURGICAL PATHOLOGY REPORT Reports generated via electronic interface contain original data; however they are lacking the format of the original report. Caution should be taken when reading/interpreti ng unformatted reports. Name: ? CHEO MORFIN ? Accession #: ? [id number] ? : ? 1950 (Age: 64) ??M ? Collect Date: ? 09/01/2014 ? Location: ? [facility] ? Receive Date: ? 09/02/2014 ? Provider: TK VERGARA MD Copy to: BOBBY HEADLEY MD ? Final Pathologic Diagnosis: SUMMARY OF CORES: A (right base) ?2 pieces ?No tumor B (right lat med) ?1 piece ? No tumor C (right med mid) ? 1 piece ? No tumor D (right lat apex) ? 1 piece ? No tumor E (right mid apex) ? 1 piece (15.0 mm) ? 6.9 mm tumor (end-to-end) ?? 4+3=7 ?discontiguous ? 46% ? 2.1 mm ?4+3 (90% 4) ? 1.3 mm ? 3+3 F (left base) ?1 piece ? No tumor G (left lat mid) ?1 piece ? No tumor H (left med mid) ?1 piece ? No tumor I (left lat apex) ?1 piece ? No tumor J (left mid apex) ?1 piece ? No tumor A. PROSTATE, RIGHT BASE, BIOPSY (2): - ??Prostatic tissue with atrophy. B. PROSTATE, RIGHT LAT MID, BIOPSY (1): - ??Prostatic tissue with atrophy. C. PROSTATE, RIGHT MED MID, BIOPSY (1): - ??Prostatic tissue with atrophy. D. PROSTATE, RIGHT LAT APEX, BIOPSY (1): - ??Prostatic tissue with atrophy. E. PROSTATE, RIGHT MID APEX, BIOPSY (1): - ??Prostatic adenocarcinoma. (two foci in one core) ?? - Histologic grade: ? 4 + 3 = 7 (60% 4) ? - Primary [place] pattern: ? Grade 4 ? - Secondary [place] pattern: ? Grade 3 ? - Total Cierra score: ? 7 ?? - Total number of cores: ?1 ?? - Number of cores positive: ?1 ?? - Tumor contiguity: ? Discontiguous ? (2.1 mm (4+3) and 1.3 mm (3+3) tumor foci by 3.5 mm non-tumor prostatic tissue) ?? - Total linear millimeters of needle core tissue: ?15.0 mm ?? - Total linear millimeters of carcinoma: ? 6.9 mm (end-to-end measurement) ?? - Linear millimeters of largest contiguous tumor: ?2.1 mm ?? - Proportion of prostatic tissue involved by tumor: ?46 % ?? - Proportion of prostatic tissue involved by tumor for core with the largest amount of tumor: 14 % ?? - Perineural invasion: ?Not identified ?? - Lymph-vascular involvement: ? Not identified ?? - Periprostatic fat/extra prostatic tissue invasion: ? Not identified ?? - Seminal vesicle invasion: ?Not identified ?? - High-grade prostatic intraepithelial neoplasia (PIN): ? Not identified F. PROSTATE, LEFT BASE, BIOPSY (1): - ??Prostatic tissue with atrophy. G. PROSTATE, LEFT LAT MID, BIOPSY (1): - ??Prostatic tissue with atrophy and acute inflammation. H. PROSTATE, LEFT MED MID, BIOPSY (1): - ??Prostatic tissue with atrophy and acute inflammation. I. PROSTATE, LEFT LAT APEX, BIOPSY (1): - ??Prostatic tissue with focal atrophy. J. PROSTATE, LEFT MID APEX, BIOPSY (1): - ??Prostatic tissue with mild atrophy and focal acute and chronic inflammation. Document reviewed and electronically signed by: Xavier Hawkins MD Report ??Date: 09/05/2014 14:33 By the signature above, the attending physician certifies that he/she has personally conducted a gross and/or microscopic examination of the described specimens and rendered or confirmed the above diagnosis. Specimen(s) Received: A. ?Rt base B. ? Rt lat mid C. ? Rt med mid D. ? Rt lat apex E. ? Rt mid apex F. ? Lt base G. ? Lt lat mid H. ? Lt med mid I. ? Lt lat apex J. ? Lt mid apex Clinical History: Elevated PSA 5.4 Gross Description: A. ?Received in formalin labelled with proper patient identification (initials D, D) and R base are two plasencia-white tissue cores (0.4 cm and 0.6 cm in length, and each 0.1 cm in diameter). Entirely submitted in block A1. B. ?Received in formalin labelled with proper patient identification (initials D, D) and R lat mid is a single plasencia-white tissue core (1.7 cm in length x 0.1 cm in diameter). Submitted intact in block B1. C. ?Received in formalin labelled with proper patient identification (initials D, D) and R med mid is a single plasencia-white tissue core (1.7 cm in length x 0.1 cm in diameter). Submitted intact in block C1. D. ?Received in formalin labelled with proper patient identification (initials D, D) and R lat apex is a single plasencia-white tissue core (1.6 cm in length x 0.1 cm in diameter). Submitted intact in block D1. E. ?Received in formalin labelled with proper patient identification (initials D, D) and R med apex is a single plasencia-white tissue core (1.5 cm in length x 0.1 cm in diameter). Submitted intact in block E1. F. ?Received in formalin labelled with proper patient identification (initials D, D) and L base is a single plasencia-white tissue core (1.7 cm in length x 0.1 cm in diameter). Submitted intact in block F1. G. ?Received in formalin labelled with proper patient identification (initials D, D) and L lat mid is a single plasencia-white tissue core (2.2 in length x 0.1 cm in diameter). Submitted intact in block G1. H. ?Received in formalin labelled with proper patient identification (initials D, D) and L med mid is a single plasencia-white tissue core (1.7 cm in length x 0.1 cm in diameter). Submitted intact in block H1. I. ?Received in formalin labelled with proper patient identification (initials D, D) and L lat apex is a single plasencia-white tissue core (1.0 cm in length x 0.1 cm in diameter). Submitted intact in block I1. J. ?Received in formalin labelled with proper patient identification (initials D, D) and L med apex is a single plasencia-white tissue core (1.5 cm in length x 0.1 cm in diameter). Submitted intact in block J1. Brandi William 09/03/2014 9:00 AM End of Report [facility] 09/01/2014 18:1 6 EDT 09/02/2014 18:16 EDT Tk Vergara MD PATHOLOGY ORDERABLES [facility] [address] [place] [address] documented in this encounter Visit Diagnoses Not on filedocumented in this encounter Care Teams Magazine Designer Relationship Specialty Start Date End Date Bobby Headley MD [address] [place] [address] [phone] PCP - General 01/18/12 documented as of this encounter
--- OUTSIDE RECORDS SUMMARY | 2023-09-17 01:33 | XMS_ITS | Encounter Summary ---
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 Role Phone Unavailable Primary Care Provider Unavailabl e Encounter Details Date Type Department Care Team (Late st Contact Info) Description 08/24/1999 Results Only [facility] [place] [facility] [address] [place] [address] Micha Pineda MD [address] [place] [phone] Social History Tobacco Use Types Packs/Day Years Used Date Smoking Tobacco: Never Assessed Sex and Gender Information Value Date Recorded Sex Assigned at Not on file Gender Identity Not on file Sexual Orientation Not on file documented as of this encounter Plan of Treatment Not on file documented as of this encounter Procedures Procedure Name Priority Date/Time Associated Diagnosis Comments SURGICAL PATHOLOGY Routine 08/24/1999 0:00 EDT documented in this encounter Results * SURGICAL PATHOLOGY (08/24/1999 0:00 EDT) Pathology Report: SURGICAL PATHOLOGY REPORT Reports generated via electronic interface contain original data; however they are lacking the format of the original report. Caution should be taken when reading/interpreti ng unformatted reports. Name: ? CHEO MORFIN ? Accession #: ? [id number] ? : ? 1950 (Age: 49) ??M ? Collect Date: ? 08/24/1999 ? Location: ? [facility] ? Receive Date: ? 08/24/1999 ? Provider: RHYS PINEDA MD Copy to: MARY HEWITT MD ? Final Pathologic Diagnosis: ? Colon, left transverse (80 cm), biopsies: - Hyperplastic polyp. Document reviewed and electronically signed by: Tresa Waite [facility] Report ??Date: 08/26/1999 16:44 By the signature above, the attending physician certifies that he/she has personally conducted a gross and/or microscopic examination of the described specimens and rendered or confirmed the above diagnosis. Specimen(s) Received: ? 80 cm polyp L trans colon Clinical History: ? Sessile polypoid lesion at 80 cm ??R/O CA Gross Description: ? Received in Hollande' s fixative labelled [place] and 80 cm polyp L transverse are seven fragments of biopsy tissue which range in greatest dimension from 0.6 to 0.2 cm. ??The largest polypoid fragment is bisected and the specimens are submitted entirely as (A1) and (A2). ??(Dr. Urbina)/barbara End of Report [facility] 08/24/1999 08/24/1999 15: 19 EDT Micha Pineda MD PATHOLOGY ORDERABLES [facility] [address] [place] [address] documented in this encounter Visit Diagnoses Not on filedocumented in this encounter
--- OUTSIDE RECORDS SUMMARY | 2023-09-17 01:33 | XMS_ITS | Encounter Summary ---
[place] [address] Care Team Providers Care Campus Director Name Role Phone Frederick Meade MD Primary Care Provider [phone] Reason for Referral * Diagnostic Test (Routine) - Closed Specialty Diagnoses / Procedures Referred By Contac t Referred To Contact Radiology Diagnoses 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 Skin nodule Procedures IR Biopsy Lymph Node (Chest/Abdomen/Pelvis) IR Biopsy Lymph Node (Head/Neck) Adrianne Ramon MD [facility] [address] [place] [address] [place] [address] Referral ID Status Reason Start Date Expiration Date V isits Requested Visits Authorized [id number] Closed Specialty Service Requested 08/22/2023 02/21/2025 1 1 * Diagnostic Test (Routine) - Closed Specialty Diagnoses / Procedures Referred By Contac t Referred To Contact Radiology Diagnoses 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 Skin nodule Procedures NM PET CT Standard Plus Extremities and Head Adrianne Ramon MD [facility] [address] [place] [address] [place] [address] Referral ID Status Reason Start Date Expiration Date V isits Requested Visits Authorized [id number] Closed Specialty Service Requested 08/22/2023 02/21/2025 1 1 Encounter Details Date Type Department Care Team (Late st Contact Info) Description 08/22/2023 12:30 PM EDT Office Visit Hematology/Oncology at [address] [phone] Adrianne Ramon MD [facility] [place] [address] Yael Merlos APRN [facility] [place] [address] 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; Skin nodule Social History Tobacco Use Types Packs/Day Years [...] money to buy more. Never true 10/12/19 23 Within the past 12 months, t he [...] place to sleep or slept in a long-term (including now)? No 10/11/2022 Sex and Gender Information Value Date Recorded Sex Assigned at Not on file Gender Identity Not on file Sexual Orientation Not on file documented as of this encounter Last Filed Vital Signs Vital Sign Reading Time Taken Comments Blood Pressure 139/60 08/22/2023 12:24 PM EDT Pulse 71 08/22/2023 12:24 PM EDT Temperature 36.2 ??C (97.2 ??F) 08/22/2023 12:24 PM E DT Respiratory Rate 16 08/22/2023 12:24 PM EDT Oxygen Saturation 97% 08/22/2023 12:24 PM EDT Inhaled Oxygen Concentration - - Weight 93 kg (205 lb 0.4 oz) 08/22/2023 12:24 PM EDT Height 168.6 cm (5' 6.38) 08/22/2023 12:24 PM E DT Body Mass Index 32.72 08/22/2023 12:24 PM EDT documented in this encounter Progress Notes * Aaron Husain MD - 08/22/2023 12:30 PM EDT Discussed biopsy options. We will be happy to evaluate and core biopsy lesion in IR, no need for further imaging at this time. * Adrianne Ramon MD - 08/22/2023 12:30 PM EDT Hematology Clinic [facility] [place] [address] HEMATOLOGY PATIENT EVALUATION PROBLEM LIST: Patient Active Problem List Diagnosis Abnormal echocardiogram 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 Anemia, iron deficiency Gout Malignant neoplasm of prostate HISTORY OF PRESENT ILLNESS: Patient prefers to be called: Cheo Support person(s) : Claritza son Cheo It was my pleasure to meet Cheo Freire today. Cheo Freire is a 73 y.o. male being seen for evaluation of of newly diagnosed B cell lymphoma. He is referred in consultation from Dr Lg Ramírez ENT. He describes a 4 week h/o of sinus swelling and then cervial LN and could not breath. ~2 weeks prior to consultation, he saw [facility] in [facility] and when to [facility]. [facility] [address] CAP, MRI, and biopsies there. He reports that he was treated forpresumed infection (presumed acute retropharyngeal abscess) with Augmentin and dexamethasone. Therewas also question of whether he may have been having an allergic reaction to lisinopril. He was discharged off of steroids. He then saw Dr. Ramírez urgently on 10/05/2022, who performed 2 biopsies, oneof the tonsil, and 1 needle biopsy of a right post cervical lymph node. Dr. Gloria started prednisone 60 mg daily x7 days with nice response. Pathology from [facility] reports large B-cell lymphoma. Double expresser. FISH for translocations are pending. Tongue swelling. No wt loss. Eating and drinking OK. No fevers, infections, No NS. Pain in neck. Prednisone 60mg daily X 7 days. I feel great on prednisone last day of prednisone is today. Took iron supplements per PCP - unclear cause. - last COLO at [facility] was 01/17/2012. INTERIM HISTORY OF PRESENT ILLNESS: Seen today urgently at the request of PCP with concern for recurrence. Accompanied by his Claritza and his daughter Sarath. Cheo returns to clinic today in routine follow-up for his DLBCL now S/pcompletion of 6 cycles of R-CHOP in January 2023 with complete remission documented by PET on 03/06/23. Since last seen in clinic ~ 3 months ago, Cheo reports feeling quite well. Essentially back to his baseline activity. No fevers, chills, recurrent infections or intercurrent illnesses. No signsof diarrhea or recurrence of c- diff. No neuropathy or residual effects of chemotherapy. No drenching sweats, unintentional weight loss or palpable adenopathy. His energy and stamina are reasonably good as long as he paces himself. Cheo saw his primary care physician, Dr. Galvez, who noted a lesion on his left arm. He was concerned it may be relapsed lymphoma. He called, and I was able to fit him in to an urgent appointment spot today. Lesion on left arm. See below. Patient reports that the lesion appeared about 3 weeks ago. Went to urgent care and was told to put hot compresses on it, assuming it was infectious. Ultrasound in physician's office noted 4.2 x 1.8 x 3.6 cm solid and partially cystic mass in the superficialsubcutaneous tissue layer. There is a second lesion in the medial mid upper extremity level measuring 1.8 x 2.2 x 1.9 cm there were also left axillary lymph nodes measuring 2.6 x 2 cm. no history of bug bites or tick. No known injury. He did pinch the area when he was lifting a box. Fevers, night sweats, abnormal weight loss. Or other skin lesions. No new health-related concerns. 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 6 mos of adjuvant Lupron. Total dose 79.2 Gy completed 01/26/15 09/29/22 Large B Cell lymphoma - biopsy of tongue and needle of cervical LN. FISH from [place] No MYCrearrangement and no fusion of MYC and IGH was observed, Initial EF 49% 10/18/22 C#1 R-CHOP with neulasta - complicated with hospitalization and neutropenic fever (ANC = 20). . Sig diarrhea now resolved. (Cdiff neg X 1 in house) 11/06/22 EF 52% 11/08/22 C#2 R-CHOP dose reduced Adriamycin and cytoxan at 66% due to neutropenia with cycle #1. Vinca 1mg. Neulasta support. Compicated by hospitalization for C-Diff 11/29/22 C#3 R-CHOP same dosing as above. 12/20/22 C#4 R-CHOP same dosing as above 01/05/23 PET-4 with near CR - some residuum in oropharynx - Deauville 4 01/10/23 C#5 R-CHOP with aurelio and cytoxan at 80% and vinca at 1mg. Jan ECHO stable 50-55% 01/31/23 C#6 R-CHOP will increase Aurelio and CTX dose to 100% 03/06/23 PET negative. PMHX: Pre- DM type II ~ 15 years - not requiring medications Hypertension 2014 Prostate CA - lupron and XRT Gout Diverticulosis without diverticulitis Anemia Cataract PSHX: Appendectomy as a child Tonsillectomy as a child 2013 bilateral ing surgery ROS Energy level: fair/good, continues to improve Pain: No Appetite: good Unexpected weight loss or gain: No Change in adenopathy or other masses: No Fevers/chills/sweats: No Bruising/bleeding/melena: No Recent infections: No Headaches: No Vision: No Hearing: No changes Sinus: No congestion/pain Seasonal Allergies: No Mouth sores: No Dentition: Good Swallowing: Normal GERD: No Nausea/vomiting: No diarrhea/constipation: No, bowel movements are soft-formed without pain,cramping or frequency SOB/CONTEH/pulmonary sx: No Cardiac symptoms: No sx: working with Urologist regarding urinary frequency, hesitation and nocturia [unchanged] Skin rashes or petechiae: See HPI Musculoskeletal complaints: strength is improving as be gets more active Extremities: Negative upper and lower bilaterally Neurologic symptoms: No Mental Status changes: No Mood: Good, his says he is smiling again Sleep: No difficulties sleeping MEDS: Current Outpatient Medications Medication Instructions allopurinoL (ZYLOPRIM) 200 mg, Oral, DAILY amLODIPine (NORVASC) 5 mg, Oral, DAILY aspirin 81 mg, Oral, DAILY colchicine (COLCRYS) 0.6 mg, Oral, DAILY PRN diphenoxylate-atropine (Lomotil) 2.5-0.025 mg tablet 1 tablet, Oral, 4 TIMES DAILY PRN Ibuprofen 200 mg Capsule Oral, 4 TIMES DAILY PRN, Reported on 05/24/2016 lactobacillus (BACID) Capsule 1 tablet, Oral, DAILY loratadine (CLARITIN) 10 mg, Oral, DAILY ONE TOUCH DELICA 33 gauge Misc USE TO TEST DAILY ONETOUCH ULTRA BLUE TEST STRIP Strip USE TO TEST DAILY ONETOUCH ULTRASOFT LANCETS Misc USE TO TEST DAILY Psyllium Seed-Sucrose (0) Powder Oral, 2 TIMES DAILY PRN ALLERGIES: No Known Allergies FAMILY HISTORY: reviewed, no changes Mother: ETOH Cirrhosis Father: DM Sibs: Sister alive w/ DM ; 1/2 bro with DM, poorly controlled. Children: son pre-DM Other: negative SOCIAL HISTORY: reviewed, no changes Personal: Claritza 37 years (third marriage, divorce and ) 4 children only 1 biologic. Son Cheo Freire. Enjoys [employer], movies, race car, cards. [employer]. 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 Not a . ETOH: 1-3 beers per week Smoking: Quit 1985. Approximately 30-zfin-pldr history Vaping or electronic cigarettes: denies Chewing tobacco: denies Marijuana or other recreational drug use: none HIPPA Contact Permission: Claritza and Cheo. Also OK to talk to Delia adult children. OK to leave message with medical information on home or cell phone: home phone PHYSICAL EXAM BP 139/60 Pulse 71 Temp 36.2 ??C (97.2 ??F) (Temporal) Resp 16 Ht 168.6 cm (5' 6.38) Wt 93 kg (205 lb 0.4 oz) SpO2 97% BMI 32.72 kg/m?? GENERAL: Cheo Freire is a delightful 73-year old male in [place]. He is accompanied to the clinic by his today. ENT: Oropharynx clear. Slight asymmetric smile and tongue deviates slightly to left [unchanged] EYES: ELSI NECK: Supple without palpable masses appreciated on exam AXILLARY: 2.5 cm lymph node high in the left axilla. INGUINAL LN: no adenopathy OTHER LYMPH: no adenopathy CARDIAC: Regular rate and rhythm without S3,S4 or murmurs. LUNGS: Clear to auscultation bilaterally ABDOMEN: Soft and non-tender without hepatosplenomegaly or palpable masses. NABS EXTREMITIES: see photo -5 cm x 3.5 cm vascular and violaceous nodule in the left medial arm above the antecubital. Nontender, mobile, not warm. Just proximal to that and a bit lateral there is a second deep subcutaneous lesion palpable about 2 x 1.5 cm. In addition there is the left axillary lymph node listed above. SKIN: see Photo NEUROLOGICAL: Alert and oriented to person, place and time. MUSCULOSKELETAL: No spinal or chest wall tenderness. LABORATORY STUDIES Recent Results (from the past 72 hour(s)) CBC (with Diff) Result Value Ref Range WBC 8.12 Hemoglobin 13.2 Hematocrit 38.4 Platelets 199 Neutr Abs (ANC) 6.02 Comprehensive metabolic panel (non-fasting) Result Value Ref Range Creatinine 1.3 Potassium 3.5 Total Bilirubin 0.4 Alk Phos 122 AST 23 ALT 27 PATHOLOGY: Final Diagnosis A. Tongue base, left: -Large B-cell lymphoma, incompletely classified. See comment. Diagnosis Comment The findings are those of a large B-cell lymphoma that exhibits a non-germinal center immunophenotype and expresses Myc and BCL-2 protein (Double Expressor.) Flow cytometry ([id number]) supports this interpretation. FISH from [facility] No MYC rearrangement and no fusion of MYC and IGH was observed, CD3 (SP7, [employer]) Background T-cells CD20 (L26, [employer]ane[employer]) diffusely positive in Neoplastic B-cells PAX-5 (1EW, Leica) diffusely positive in Neoplastic B-cells CD10 (SP67, [employer]) Negative BCL-6 (G/191E/A8, [employer]anerette) Positive MUM-1 (MUM1p, Dako) Positive Myc (Y69, [employer]cam) Positive BCL-2 Oncoprotein (124, [employer]anerette) Positive Ki67 (MIB-1) (K2, Leica) Greater than 95% of cells in cycle Cyclin D1(SP4-R, Jeanerette) Negative SAPPHIRE JOSE ([id number], Leica) Negative. DIAGNOSTICS: 01/25/23 ECHO after C#5 EF 50-55% 11/28/22 ECHO after C#2 EF 52% 11/06/22 ECHO after C#1 RCHOP EF = 52% Interpretation Summary LV systolic function appears to be low-normal. LV ejection fraction appears to be 52%. Global longitudinal strain is measured at -16.6 %. (GE). There are no segmental wall motion abnormalities. Normal right ventricle. No significant valvular abnormalities. Trivial pericardial effusion. On direct comparison to prior echo dated 10/12/2022, the LV function has slightly improved. 10/11/22 ECHO EF = 49% Interpretation Summary Left ventricle is of normal size. Wall thickness is normal. Left ventricular systolic function is mildly reduced. The left ventricular ejection fraction is 49% by Marx's biplane. Global longitudinal strain is measured at -15.6 %. (GE). Mild global hypokinesis. The right ventricle is of normal size. Right ventricular systolic function is normal. No significant valvular disease noted on this study. See report for additional findings. No comparison study is available. RADIOLOGY STUDIES REVIEWED: 08/22/2023 left upper extremity ultrasound performed at [facility] Notable findings: In the left antecubital fossa there is a 4.2 x 1.8 x 3.6 cm partially solid partially cystic mass in the superficial subcutaneous tissue layer. Main considerations are for neoplastic process or abscess. Another similar finding is seen in the medial mid upper extremity level measuring approximately 1.8x 2.2 x 1.9 cm. Most probably similar pathology to the above. There is mildly prominent lymph nodes in the left axilla, measuring 2.6 x 2.0 cm in size 03/06/23 PET after C#6 IMPRESSION 1. No PET CT evidence of active lymphoma, with resolution of previous uptake in the right posteriororopharynx/retropharynx. 2. Anatomic resolution of adenopathy. 3. Chronic, non-FDG avid consolidation within the right lower lobe may represent an area of roundedatelectasis and/or scarring. This is unchanged since September 2022 PET scan. 12/26/22 PET after C#4 IMPRESSION 1. Near complete metabolic resolution of lymphoma. There remains a focus of increased activity in the right side of the oropharynx which may be due to lymphoma. 2. New FDG avid small focal groundglass opacities in the lungs bilaterally are most likely inflammatory. 3. Deauville score 4. 10/11/22 PET IMPRESSION 1. Sarahi involvement by lymphoma in the neck, chest, abdomen, and pelvis as above. 2. Mild diffusely increased activity throughout the spleen, highly suspicious for splenic involvement by lymphoma. 3. Mild diffusely increased marrow activity in the axial and proximal appendicular skeleton, consistent with reactive marrow and/or marrow involvement by lymphoma. 09/22/2022 CT Neck -selected parts dictated below Oropharynx: Enlarged tonsils. Abnormal swelling of the retropharyngeal tissues is evident. See below. There is tissue swelling in the vallecular by. Free edge of the epiglottis appears unremarkable Hypopharynx/retropharyngeal: Abnormal. There is prominent swelling of the retropharyngeal space andthere is relatively hypodense ovoid abdominally right but extending slightly across the midline peripherally enhancing structure which measures 4 cm wide by 1.5 cm maximum AP by 3 cm cephalocaudal, not containing gas but with surrounding retropharyngeal edema. Edema extends down to the lower C5 level as well as above this C2 level abscess or mass. Infection versus malignancy. No radiopaque foreign body evident in this region. Lymph nodes: There is prominent adenopathy throughout both sides of the neck and including the supraclavicular regions bilaterally. On the right side of the neck medial to the posterior aspect of thesternocleidomastoid muscle and just behind the largest abnormal lymph node (which measures 2.3 x 2.5 cm) there are multiply centrally hypodense densities which have a similar appearance of the retropharyngeal abnormality and either represent extension of the abscess or neoplasm. 1 of these which measures 1.3 cm x 1 cm wide is located quite posteriorly on the right side of the neck. Impression: 1. As described above there is a large predominantly right-sided peripherally enhancing mass or abscess in the retropharyngeal space with abundant surrounding edema down to C5 level and with multipleabnormally enlarged lymph nodes on both sides of the neck, some of these being centrally hypodense and having similar appearance to the abnormal retropharyngeal finding. Main differential diagnosis here is neoplasm versus abscess. 2. There are enlarged bilateral lingular tonsils also noted as well as significant asymmetry in theappearance of both sides of the tongue. 3. 2.2 x 1.5 right thyroid lobe nodule which is taller than wider in the transverse plane and therefore should also undergo investigation with ultrasound. CT CAP at [facility], report and images have been requested. ASSESSMENT/PLAN: Cheo Freire is a very pleasant 73 y.o. male referred y Dr Lg Ramírez of ENT for large B celllymphoma. Cheo returns today s/p 6 cycles of R-CHOP chemotherapy [completed 01/31/23]. Despite Neulasta prophylaxis, cycle #1 was complicated by hospitalization with neutropenic fever and significant GI complications. Cycle #2 was administered with dose reduction in vincristine to 1 mg and Cytoxan and Adriamycin dosed at 66% of original dosing. As he did fine with cycles #3 and 4, the dose of Cytoxan and Adriamycin were increased to 80% with cycle #5 and 100% with cycle #6 without excessive toxicity. Patient is seen urgently today after phone call this morning from primary care physician, Dr. Galvez. It is noted that he has a palpable mobile nodule as listed above with ultrasound done today at [facility]. See report in scanned documents. This may represent a recurrence, but it could also be infectious. I spoke to Dr. Bruce Husain at [facility], who recommended large core needle biopsy. Given concern for abscess as well as lymphoma, I would like the biopsy done both of the left antecubital mass, but also the left axillary lymph node. We will also cancel his CAT scan and get a PET scan. He already has follow-up scheduled with me on 09/11 which we will keep. We will also do labs at [facility] on day of bio psies. Cardiac -Cheo has no cardiac history. No history of stress test done in the past. However his echocardiogram returned with ejection fraction 49% with mild global hypokinesis without wall motion abnormalities. Given that we know anthracycline is critical to curing diffuse large B-cell lymphoma andearlier anthracycline is better than later during the treatment course, I recommended starting cycle #1 with Adriamycin, and following ejection fraction closely. He has been seen by Dr. Matthew Barbosa inCardiOncology. Repeat echo 01/25/2323 showed stable LVEF at 50-55%. --asymptomatic --repeat echo at [facility] 1 year post completion of therapy [due January 2024] Suspected MEHNAZ - Hgb drop 3gm in Hgb in October. No overt bleeding though there may have been someGI loss with c-diff colitis. He was prescribed a course of oral iron which has subsequently been discontinued on 12/06/22. Will follow to follow prospectively. Last ferritin in Jan was normal --Recheck iron studies in 3 mos with his next surveillance appt. Prostate Cancer - DAVE at this time Constipation - Vinca decreased to 1mg with cycle #2. Stools are soft-formed and regular. He has recovered from c-diff colitis --no intervention, not an active problem at this time C-diff colitis - unable to afford Dificid prescribed at discharge from the hospital so his course was completed with treatment doses of Vano completed on 11/30/22 following which prophylactic oral vanco 125mg po bid was initiated and will continue for the duration of his chemotherapy. --no intervention, not an active problem at this time Plan: PET scan next available Labs at on day of PET or biopsy Keep RTC as planned in 3 weeks IR biopsy of both left antecubital mass, and left axillary lymph node. Requesting largest core needle biopsy possible to get enough pathology to assess for lymphoma. FNA is not adequate. Discussed with Dr. Bruce Husain in IR today. Repeat echo 1 year post completion of therapy (Jan- Feb) Given c-diff, will need to consider vanco prophy if requires ATB in next 6 - [address] at [facility] Surveillance every 3 mos for first year (Feb 2024) and every 4 mos for second year (Feb 2025) and then q 6 mos to Feb 2028. I discussed all of the above with the patient and all of his questions were answered. Support and counseling as appropriate. Copy Frederick Meade MD documented in this encounter Plan of Treatment Upcoming Encounters Date Type Department Care Team (Late st Contact Info) Description 09/19/2023 8:00 AM EDT Infusion Hematology Oncology at [address] [address] 09/21/2023 9:30 AM EDT Office Visit Hematology [place] [address] Micha Givens Jr., MD [facility] [place] [address] 09/21/2023 10:30 AM EDT Clinical Support Hematology [place] [address] Danii Her RN 09/26/2023 8:30 AM EDT Infusion Hematology Oncology at [address] [address] 10/03/2023 9:00 AM EDT Office Visit Hematology/Oncology at [address] [address] Adrianne Ramon MD [facility] [place] [address] Yael Merlos APRN [facility] [place] [address] 10/03/2023 9:30 AM EDT Infusion Hematology Oncology at [address] [phone] 10/10/2023 8:30 AM EDT Infusion Hematology Oncology at [address] [phone] documented as of this encounter Procedures Procedure Name Priority Date/Time Associated Diagnosis Comments CBC (WITH DIFF) Routine 08/22/2023 COMPREHENSIVE METABOLIC PANEL (NON-FASTING) Routine 08/22/2023 documented in this encounter Results * NM PET CT Standard Plus Extremities and Head (09/06/2023 2:45 PM EDT) [employer] WORKSTATION ID [id number] DH RAD Anatomical Region Laterality Modality Positron Emissio n Tomography (PET) Impressions 09/10/2023 11:18 AM EDT Recurrent active lymphoma in sarahi regions of the neck, chest, abdomen, pelvis, pharynx, spleen, and soft tissues of the upper and lower extremities (Deauville 5). I have personally reviewed the image(s) and the resident's interpretation and agree with the findings, Rohan Henley MD at 09/10/2023 11:18 AM Thank you for letting us participate in the care of this patient. ??If you are a health care provider and have any questions regarding this report, please contact the number below. ??For patients who have questions please contact the health complex care nurse that requested your imaging first. ? Electronically signed by: Rohan Henley MD, [facility] ([phone]), at 09/10/2023 11:18 AM Narrative 09/10/2023 11:18 AM EDT EXAMINATION: NM PET CT STANDARD PLUS EXTREMITIES AND HEAD CLINICAL HISTORY: Patient 6 months out from completing treatment for diffuse large B-cell lymphoma. ??Now with cutaneous mass on left antecubital and left axillary adenopathy. ??Concern for relapse versus infection C83.38, Diffuse large b-cell lymphoma, lymph nodes of multiple sites - R22.9, Localized swelling, mass and lump, unspecified. TECHNIQUE: Procedure: Following IV injection of 68-flgskv-0-deoxyglucose (FDG) a standard uptake of approximately 60 minutes, a noncontrast CT scan followed by a PET scan were acquired from the top of head to bottom of feet. The noncontrast CT was used for anatomic localization and photon attenuation correction of the PET scan. Blood glucose level: 98 (mg/dL) FDG dose: 12.8 mCi Mean liver SUV: 2.7 (previously 2.4) COMPARISON: PET/CT 03/06/2023. CT neck 09/21/2022. FINDINGS: HEAD/NECK: New asymmetric FDG uptake in the soft palate to the right of midline (image 64), lingual tonsils, and oropharynx circumferentially with extension into the vallecula and epiglottis on the left. New FDG avid left retropharyngeal node (image 66). Multiple new small FDG avid lymph nodes in the bilateral upper and lower cervical and supraclavicular regions. New small FDG avid intraparotid lymph nodes, bilaterally. CHEST: New conglomerate FDG avid adenopathy in the bilateral axillary regions, and new small FDG avid lymph nodes in the right paratracheal and subaortic regions. Dependent atelectasis. No suspicious lung nodule. Aortic and coronary calcifications. Small hiatal hernia. ABDOMEN/PELVIS: FDG avid mone hepatis, paracaval, aortocaval, bilateral external iliac, and bilateral inguinal lymph nodes. New splenomegaly, 14 cm craniocaudal, with diffusely increased FDG uptake. Simple bilateral renal cysts. SKELETON/EXTREMITIES: Small FDG avid focus in the right third metatarsal base (image 563), consistent with subchondral cystic degenerative change as seen on CT. FDG avid and lymph nodes in the bilateral antecubital fossae and upper extremities, and left shoulder. FDG avid lymph node in the subcutaneous tissues of the right anterior thigh (image 324), right medial patellar trochlear groove (image 406), and just above the lateral tibial plateau (image 423). SUV MEASUREMENTS: * ??Left antecubital fossa 3.4 cm lymph node: Image 184, SUV max 16 * ??Right axillary lymph nodes: Image 112, SUV max 10 * ??Pharyngeal wall lesion: Image 74, SUV max 27 Procedure Note Rohan Henley MD - 09/10/2023 EXAMINATION: NM PET CT STANDARD PLUS EXTREMITIES AND HEAD CLINICAL HISTORY: Patient 6 months out from completing treatment fordiffuse large B-cell lymphoma. Now with cutaneous mass on left antecubital andleft axillary adenopathy. Concern for relapse versus infection C83.38, Diffuse large b-cell lymphoma, lymph nodes of multiple sites -R22.9, Localized swelling, mass and lump, unspecified. TECHNIQUE: Procedure: Following IV injection of 69-rkihna-8-deoxyglucose(FDG) a standard uptake of approximately 60 minutes, a noncontrast CT scanfollowed by a PET scan were acquired from the top of head to bottom of feet. Thenoncontrast CT was used for anatomic localization and photon attenuation correction ofthe PET scan. Blood glucose level: 98 (mg/dL) FDG dose: 12.8 mCi Mean liver SUV: 2.7 (previously 2.4) COMPARISON: PET/CT 03/06/2023. CT neck 09/21/2022. FINDINGS: HEAD/NECK: New asymmetric FDG uptake in the soft palate to the right of midline(image 64), lingual tonsils, and oropharynx circumferentially with extension intothe vallecula and epiglottis on the left. New FDG avid left retropharyngeal node (image 66). Multiple new small FDG avid lymph nodes in the bilateral upper and lower cervical and supraclavicular regions. New small FDG avid intraparotid lymph nodes, bilaterally. CHEST: New conglomerate FDG avid adenopathy in the bilateral axillary regions,and new small FDG avid lymph nodes in the right paratracheal and subaorticregions. Dependent atelectasis. No suspicious lung nodule. Aortic and coronary calcifications. Small hiatal hernia. ABDOMEN/PELVIS: FDG avid mone hepatis, paracaval, aortocaval, bilateral external iliac,and bilateral inguinal lymph nodes. New splenomegaly, 14 cm craniocaudal, with diffusely increased FDG uptake. Simple bilateral renal cysts. SKELETON/EXTREMITIES: Small FDG avid focus in the right third metatarsal base (image 563),consistent with subchondral cystic degenerative change as seen on CT. FDG avid and lymph nodes in the bilateral antecubital fossae and upper extremities, and left shoulder. FDG avid lymph node in the subcutaneous tissues of the right anteriorthigh (image 324), right medial patellar trochlear groove (image 406), and justabove the lateral tibial plateau (image 423). SUV MEASUREMENTS: * Left antecubital fossa 3.4 cm lymph node: Image 184, SUV max 16 * Right axillary lymph nodes: Image 112, SUV max 10 * Pharyngeal wall lesion: Image 74, SUV max 27 IMPRESSION Recurrent active lymphoma in sarahi regions of the neck, chest, abdomen,pelvis, pharynx, spleen, and soft tissues of the upper and lower extremities(Deau[place] 5). I have personally reviewed the image(s) and the resident's interpretationand agree with the findings, Rohan Henley MD at 09/10/2023 11:18 AM Thank you for letting us participate in the care of this patient. If youare a health care provider and have any questions regarding this report,please contact the number below. For patients who have questions please contactthe health complex care nurse that requested your imaging first. Electronically signed by: Rohan Henley MD, [facility]([phone]), at 09/10/2023 11:18 AM Adrianne Ramon MD IMG PET ORDERABL ES * IR Biopsy Lymph Node (Chest/Abdomen/Pelvis) (09/06/2023 12:35 PM EDT) Anatomical Region Laterality Modality X-Ray Angiograph y Narrative 09/06/2023 12:42 PM EDT Table formatting from the original result was not included. Images from the original result were not included. IR PROCEDURE NOTE Procedure: Ultrasound-guided biopsy of superficial mass left antecubital region, Indication for Procedure: Per Dr. Wang, Cheo Freire is a 73 y.o. male who presents to Interventional Radiology to undergo left axillary and left antecubital lymph node biopsies in the setting of new palpable lymph nodes visualized on recent intra-office ultrasound. From the order, History of diffuse large B-cell lymphoma. ??Completed therapy 6 months ago. ??Left antecubital mass, with associated deep tissue mass, & L ax ??LN. ??Abscess vs lymphoma. Procedure events and findings: Patient was positioned supine. ??Initial ultrasound of the visible raised erythematous mass in the left antecubital fossa showed subcutaneous hypoechoic regions consistent with edema but no hypoechoic region to suggest a fluid component. ??Appearance not suggestive of adenopathy. ??Site for biopsy was chosen and marked on the skin. ??The region was prepped and draped, maximal sterile barrier technique was used throughout the procedure. Due to the painful nature of the procedure, patient received split doses of intravenous fentanyl from the IR nurse while pulse, pressure, and oxygen saturation were continuously monitored. After local anesthesia with 1% lidocaine, a 17-gauge coaxial needle was directed into the mass under ultrasound guidance via a lateral to medial approach. ??Multiple 18-gauge 2 cm cores were obtained and submitted in saline and formalin and for infectious workup. ??Post biopsy ultrasound showed no hematoma or with color Doppler active hemorrhage. Ultrasound of the left axilla showed enlarged hypoechoic masses consistent with lymph nodes. ??A site for biopsy was chosen and again marked on the skin. ??The region was prepped and draped and local anesthesia provided with 1% lidocaine. ??Under ultrasound guidance an 18-gauge coaxial needle was directed to an enlarged node. ??Multiple 18-gauge 2cm cores were obtained, sent in formalin and in saline. ??Postbiopsy ultrasound showed no hematoma or with color Doppler active hemorrhage. Medications: Fentanyl 100 mcg IV, 1% Lidocaine <10ccs subcutaneous. Est Blood Loss: 10cc. Complications: ??No immediate. Impression: 1. ??Visible superficial left antecubital mass, by ultrasound edema but no fluid component, no structures to suggest lymph nodes. 2. ??Ultrasound-guided biopsy with multiple 18-gauge cores sent in saline, in formalin and for infectious workup. 3. ??Enlarged left axillary nodes. 4. ??Ultrasound-guided biopsy with multiple 18-gauge cores obtained, sent in saline and formalin. Resident/Fellow: None. Attending: I, Dr. Pearl performed this procedure. ? Adrianne Ramon MD IMG IR ORDERABLE S * Blood culture (09/06/2023 10:12 AM EDT) Blood Culture No growth at [address] [facility] Blood ANTECUBITAL REGION STRUCTURE / Unknown 09/06/2023 10:12 AM EDT 09/06/2023 10:31 AM EDT Comment:Peripheral culture Narrative Resulting Agency Comment Spec In Lab Adrianne Ramon MD MICROBIOLOGY - B LOOD ORDERABLES Performing Organization Address City/[facility]/ZIP Co de Phone Number [facility] [place] [address] * (ABNORMAL) Lactate Dehydrogenase (09/06/2023 10:12 AM EDT) LDH 251(H) 110 - 220 unit/L [facility] Blood 09/06/2023 10:1 2 AM EDT 09/06/2023 10:16 AM EDT Narrative Resulting Agency Comment Spec In Lab Adrianne Ramon MD CHEMISTRY ORDERA BLES Performing Organization Address City/[facility]/ZIP Co de Phone Number [facility] [place] [address] * (ABNORMAL) Comprehensive metabolic panel (non-fasting) (09/06/2023 10:12 AM EDT) Glucose Lvl 170 65 - 199 mg/dL [facility] Comment:Diabetes: >=200 mg/d L plus symptoms BUN 15 10 - 20 mg/dL [facility] Creatinine 1.07 0.80 - 1.50 mg/dL [facility] Sodium 143 135 - 145 mmol/L [facility] Potassium 3.8 3.5 - 5.0 mmol/L [facility] Comment: Please note: ??Patients with WBC >100,000 may have falsely elevated Potassium levels. ??For accurate Potassium quantification in these patients send serum separator tube (gold top) for subsequent determinations. ??Contact the Clinical Chemistry Laboratory if there are any questions. Chloride 107 98 - 107 mmol/L [facility] CO2 25 22 - 31 mmol/L [facility] Anion Gap 11 5 - 15 mmol/L [facility] Calcium 9.2 8.5 - 10.5 mg/dL [facility] Total Protein 6.1 6.1 - 8.0 g/dL [facility] Albumin 3.7 3.2 - 5.2 g/dL [facility] AST 37 0 - 39 unit/L [facility] ALT 61(H) 0 - 55 unit/L [facility] Alk Phos 151(H) 40 - 130 unit/L [facility] Total Bilirubin 0.3 0.2 - 1.3 mg/dL [facility] Estimated GFR 72 >=60 mL/min/1. 73 m?? [facility] Comment: This patient's estimated GFR was calculated using the 2020 CKD-EPI equation. The estimated GFR can vary from the measured GFR by up to 30% in the absence of rapidly changing kidney function. Assessment of the estimated GFR is not appropriate when creatinine concentrations are rapidly changing. For clinical situations in which a more precise estimate of GFR is necessary, consider alternative methods of GFR estimation such as a 24-hour urine creatinine clearance. Assignment of CKD stage 1-5 for patients with an eGFR near the transition point between stages may be based on clinical assessment of muscle mass and symptoms in addition to eGFR. Blood 09/06/2023 10:1 2 AM EDT 09/06/2023 10:16 AM EDT Narrative Resulting Agency Comment Spec In Lab Adrianne Ramon MD CHEMISTRY ORDERA BLES [facility] [place] [address] * Comprehensive metabolic panel (non-fasting) (08/22/2023) Creatinine 1.3 Potassium 3.5 Total Bilirubin 0.4 Alk Phos 122 AST 23 ALT 27 Blood 08/22/2023 Historical Provider CHEMISTRY ORDERAB LES * CBC (with Diff) (08/22/2023) WBC 8.12 Hemoglobin 13.2 Hematocrit 38.4 Platelets 199 Neutr Abs (ANC) 6.02 Blood 08/22/2023 Historical Provider HEMATOLOGY ORDERA BLES documented in this encounter Visit Diagnoses Diagnosis 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 Skin nodule Localized superficial swelling, mass, or lump 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 Skin nodule Localized superficial swelling, mass, or lump 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 Skin nodule Localized superficial swelling, mass, or lump documented in this encounter Care Teams Campus Director Relationship Specialty Start Date End Date Frederick Meade MD [facility] [address] [facility] [address] [place] [address] PCP - General Family Medicine 11/29/17 documented as of this encounter
--- OUTSIDE RECORDS SUMMARY | 2023-09-17 01:33 | XMS_ITS | Encounter Summary ---
Author Organization [facility] Address [address] [place] [address] Care Team Providers Care Cone Machine Operator Name Role Phone Bobby Headley MD Primary Care Provider [phone] Encounter Details Date Type Department Care Team (Late st Contact Info) Description 03/10/2019 Lab Requisition [facility] Pathology & Laboratory Medicine - [facility] [address] [place] [address] Unknown, Provider, Social History Tobacco Use Types Packs/Day Years Used Date Smoking Tobacco: Never Assessed Sex and Gender Information Value Date Recorded Sex Assigned at Not on file Gender Identity Not on file Sexual Orientation Not on file documented as of this encounter Plan of Treatment Not on file documented as of this encounter Procedures Procedure Name Priority Date/Time Associated Diagnosis Comments PSA TOTAL, DIAGNOSTIC Routine 03/10/2019 9:05 EST documented in this encounter Results * PSA TOTAL, DIAGNOSTIC (03/10/2019 9:05 EST) PSA <0.1 0.0 - 6.5 ng/mL 03/11/2019 10:56 EST [facility] Blood VENOUS BLOOD / Unknown 03/10/2019 9:05 EST 03/10/2019 15:40 EST Narrative [facility] - 03/11/2019 10:56 EST NOTE: Serum PSA concentration should not be interpreted as absolute evidence for the presence or absence of malignant disease. Assayed on Siemens ADVIA 360Citiesaur XPT using chemiluminescent technology.??Values obtained by using different assay methods cannot be used interchangeably. Provider Unknown CHEMISTRY & BLOOD GA S ORDERABLES [facility] [address] [place] [address] documented in this encounter Visit Diagnoses Not on filedocumented in this encounter Care Teams Cone Machine Operator Relationship Specialty Start Date End Date Bobby Headley MD [address] [place] [id number] PCP - General 01/18/12 documented as of this encounter
--- OUTSIDE RECORDS SUMMARY | 2023-09-17 01:33 | XMS_ITS | Encounter Summary ---
Author Organization [facility] [place] [address] Care Team Providers Care Precision Instrument Maker And Repairer Name Role Phone Frederick Meade MD Primary Care Provider [phone] Encounter Details Date Type Department Care Team (Latest Contact Info) Description 08/22/2023 Travel Social History Tobacco Use Types Packs/Day Years [...] place to sleep or slept in a snf (including now)? No 10/11/2022 Sex and Gender Information Value Date Recorded Sex Assigned at Not on file Gender Identity Not on file Sexual Orientation Not on file documented as of this encounter Plan of Treatment Upcoming Encounters Date Type Department Care Team (Late st Contact Info) Description 09/19/2023 8:00 AM EDT Infusion Hematology Oncology at [address] [phone] 09/21/2023 9:30 AM EDT Office Visit Hematology [place] [phone] Micha Givens Jr., MD [facility] [place] [address] 09/21/2023 10:30 AM EDT Clinical Support Hematology [place] [phone] Danii Her RN 09/26/2023 8:30 AM EDT Infusion Hematology Oncology at [address] [phone] 10/03/2023 9:00 AM EDT Office Visit Hematology/Oncology at [address] [phone] Adrianne Ramon MD [facility] [place] [address] Yael Merlos APRN [facility] [place] [address] 10/03/2023 9:30 AM EDT Infusion Hematology Oncology at [address] [phone] 10/10/2023 8:30 AM EDT Infusion Hematology Oncology at [address] [phone] documented as of this encounter Visit Diagnoses Not on filedocumented in this encounter Care Teams Precision Instrument Maker And Repairer Relationship Specialty Start Date End Date Frederick Meade MD [address] [place] [address] PCP - General Family Medicine 11/29/17 documented as of this encounter
--- OUTSIDE RECORDS SUMMARY | 2023-09-17 01:33 | XMS_ITS | Encounter Summary ---
Author Organization [facility] Address [address] [place] [address] Care Team Providers Care Mold Shop Supervisor Name Role Phone Bobby Headley MD Primary Care Provider [phone] Encounter Details Date Type Department Care Team (Late st Contact Info) Description 03/11/2021 Lab Requisition [facility] Pathology & Laboratory Medicine - [address] [phone] Outr Resulting Lab, Provider Social History Tobacco [...] Associated Diagnosis Comments PSA TOTAL, DIAGNOSTIC Routine 03/11/2021 12:38 EST documented in this encounter Results * PSA TOTAL, DIAGNOSTIC (03/11/2021 12:38 EST) PSA <0.1 0.0 - 6.5 ng/mL 03/11/2021 21:52 EST [facility] Blood VENOUS BLOOD / Unknown 03/11/2021 12:38 EST 03/11/2021 21:02 EST Narrative [facility] - 03/11/2021 21:52 EST NOTE: Serum PSA concentration should not be interpreted as absolute evidence for the presence or absence of malignant disease. Assayed on Siemens ADVIA Fortumoaur XPT using chemiluminescent technology.??Values obtained by using different assay methods cannot be used interchangeably. Provider Outr Resulting Lab CHEMISTRY & BLOOD GAS ORDERABLES [facility] [address] [place] [address] documented in this encounter Visit Diagnoses Not on filedocumented in this encounter Care Teams Mold Shop Supervisor Relationship Specialty Start Date End Date Bobby Headley MD [address] [place] [id number] PCP - General 01/18/12 documented as of this encounter
--- OUTSIDE RECORDS SUMMARY | 2023-09-17 01:33 | XMS_ITS | Encounter Summary ---
Author Organization [facility] Address [facility] [place] [address] Care Team Providers Care Motorcycle Designer Name Role Phone Frederick Meade MD Primary Care Provider [phone] Encounter Details Date Type Department Care Team (Late st Contact Info) Description 09/12/2023 Telephone Hematology/Oncology at [address] [phone] Adrianne Ramon MD [facility] DR HEMATOLOGY [place] [address] Social History Tobacco Use Types Packs/Day Years [...] place to sleep or slept in a senior care (including now)? No 10/11/2022 Sex and Gender Information Value Date Recorded Sex Assigned at Not on file Gender Identity Not on file Sexual Orientation Not on file documented as of this encounter Plan of Treatment Upcoming Encounters Date Type Department Care Team (Late st Contact Info) Description 09/19/2023 8:00 AM EDT Infusion Hematology Oncology at [address] [phone] 09/21/2023 9:30 AM EDT Office Visit [place] [phone] Micha Givens Jr., MD [facility] DR HEMATOLOGY [place] [address] 09/21/2023 10:30 AM EDT Clinical Support [place] [address] Danii Her RN 09/26/2023 8:30 AM EDT Infusion Hematology Oncology at [address] [phone] 10/03/2023 9:00 AM EDT Office Visit Hematology/Oncology at [address] [phone] Adrianne Ramon MD [facility] DR HEMATOLOGY [place] [address] Yael Merlos, KARLA [facility] HEMATOLOGY [place] [address] 10/03/2023 9:30 AM EDT Infusion Hematology Oncology at [address] [phone] 10/10/2023 8:30 AM EDT Infusion Hematology Oncology at [address] [phone] documented as of this encounter Visit Diagnoses Diagnosis 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 documented in this encounter Care Teams Motorcycle Designer Relationship Specialty Start Date End Date Frederick Meade MD [address] [place] [address] PCP - General Family Medicine 11/29/17 documented as of this encounter
--- OUTSIDE RECORDS SUMMARY | 2023-09-17 01:33 | XMS_ITS | Encounter Summary ---
Author Organization [facility] Address [address] [place] [address] Care Team Providers Care Hospital Clerk Name Role Phone Bobby Headley MD Primary Care Provider [phone] Encounter Details Date Type Department Care Team (Latest Contact Info) Description 09/01/2014 13:19 EDT - 09/01/2014 23:59 EDT Hospital Encounter [address] [address] Unknown, Provider, Discharge Disposition: Home or Self Care Social History Tobacco Use Types Packs/Day Years Used Date Smoking Tobacco: Never Assessed Sex and Gender Information Value Date Recorded Sex Assigned at Not on file Gender Identity Not on file Sexual Orientation Not on file documented as of this encounter Discharge Disposition Disposition Code Departure Means Destination Home or Self Correction documented in this encounter Plan of Treatment Not on file documented as of this encounter Visit Diagnoses Not on filedocumented in this encounter Care Teams Hospital Clerk Relationship Specialty Start Date End Date Bobby Headley MD [address] [place] [id number] PCP - General 01/18/12 documented as of this encounter
--- OUTSIDE RECORDS SUMMARY | 2023-09-17 01:33 | XMS_ITS | Encounter Summary ---
Author Organization [facility] Address [address] [place] [address] Care Team Providers Care Associate Professor Of Art Name Role Phone Unavailable Primary Care Provider Unavailabl e Encounter Details Date Type Department Care Team (Late st Contact Info) Description 01/17/[address] [facility] Laboratory Services - [facility] [place] [place] [address], [place] [id number] Andreas Temple MD [address] [place] [address] Social History Tobacco Use Types Packs/Day Years Used Date Smoking Tobacco: Never Assessed Sex and Gender Information Value Date Recorded Sex Assigned at Not on file Gender Identity Not on file Sexual Orientation Not on file documented as of this encounter Plan of Treatment Not on file documented as of this encounter Procedures Procedure Name Priority Date/Time Associated Diagnosis Comments SURGICAL PATHOLOGY Routine 01/17/2012 0:00 EST documented in this encounter Results * SURGICAL PATHOLOGY (01/17/2012 0:00 EST) Pathology Report: SURGICAL PATHOLOGY REPORT Reports generated via electronic interface contain original data; however they are lacking the format of the original report. Caution should be taken when reading/interpreti ng unformatted reports. Name: ? CHEO MORFIN ? Accession #: ? [id number] ? : ? 1950 (Age: 61) ??M ? Collect Date: ? 01/17/2012 ? Location: ? [facility] ? Receive Date: ? 01/17/2012 ? Provider: ANDREAS TEMPLE MD Copy to: CRIS MARINO MD ? Final Pathologic Diagnosis: A. ?Cecum, polyp, biopsy: 1. ?Hyperplastic polyp. ??See comment. B. ?Tissue submitted as ? descending colon polyp, biopsy: 1. ?Polypoid colonic mucosa with prominent lymphoid aggregate and surface hyperplastic changes. ??See comment. Comment: ? Deeper levels of both specimens (A) and (B) were reviewed. ??(Dr. Lagos)/[facility] Document reviewed and electronically signed by: DELROY LAGOS MD Report ??Date: 01/19/2012 15:58 By the signature above, the attending physician certifies that he/she has personally conducted a gross and/or microscopic examination of the described specimens and rendered or confirmed the above diagnosis. Specimen(s) Received: A. ?Cecal polyp B. ? descending colon polyp Clinical History: ? H/O rectal polyp Gross Description: ? Received in formalin labelled Cheo Morfin and cecal polyp is a 0.4 x 0.3 x 0.2 cm light plasencia biopsy. ??The specimen is submitted intact as (A). Received in formalin labelled Cheo Morfin and ? descending colon polyp is a light plasencia biopsy measuring 0.2 x 0.2 x 0.1 cm. ??The specimen is submitted intact as (B). (Sam William)/mpl End of Report [facility] 01/17/2012 01/17/2012 20: 13 EST Andreas Temple MD PATHOLOGY ORDERABLES Performing Organization Address City/State/[facility] Co de Phone Number [facility] [address] [place] [address] documented in this encounter Visit Diagnoses Not on filedocumented in this encounter
--- OUTSIDE RECORDS SUMMARY | 2023-09-17 01:33 | XMS_ITS | Encounter Summary ---
Author Organization [facility] Address [address] [place] [address] Care Team Providers Care Skull Grinder Name Role Phone Bobby Headley MD Primary Care Provider [phone] Encounter Details Date Type Department Care Team (Late st Contact Info) Description 10/06/2022 Lab Requisition [facility] Pathology & Laboratory Medicine - [facility] [address] [place] [address] Lg Ramírez MD [address] [place] [id number] Generalized enlarged lymph nodes Social History [...] Priority Date/Time Associated Diagnosis Comments SURGICAL PATHOLOGY Today 10/05/2022 8:00 EDT Generalized enlarged lymph nodes documented in this encounter Results * SURGICAL PATHOLOGY (10/05/2022 8:00 EDT) Addendum Comment This addendum is issued to finalize the lymphoma classification following FISH testing. There is no rearrangement of the MYC gene detected by FISH, thus ruling out the diagnosis of a double hit lymphoma. Final classification: Diffuse Large B-Cell Lymphoma. 10/17/2022 13:09 EDT [facility] Addendum electronically signed by Dedrick Quintanilla MD on 10/17/2022 at 1309 Note to Patient The following pathology results have been interpreted by your pathologist and may be available to you before your health provider has had the opportunity to review them. Please allow time for your provider to receive these results and explore management options, if applicable. 10/17/2022 13:09 [facility] Final Diagnosis A. Tongue base, left: -Large B-cell lymphoma, incompletely classified. See comment. 10/17/2022 13:09 [facility] Diagnosis Comment The findings are those of a large B-cell lymphoma that exhibits a non-germinal center immunophenotype and expresses Myc and BCL-2 protein (Double Expressor.) Flow cytometry ([id number]) supports this interpretation. The differential classification of this lesion is diffuse large B-cell lymphoma versus high grade B-cell lymphoma with MYC and BCL-2 rearrangement. Material has been sent to [facility] to assess the status of these genes by FISH and an addendum report with a definitive classification will be issued upon receipt of the result. 10/17/2022 13:09 [facility] Attestation By the signature below, the attending physician certifies that they have 1) personally conducted a gross and/or microscopic examination of the described specimen(s), and/or personally interpreted the results of laboratory testing of the described specimen(s), and 2) personally rendered or confirmed the above diagnosis. 10/17/2022 13:09 [facility] at 1210 Microscopic Description There is a diffuse proliferation of large B-cells below the squamous epithelium. Nuclei are large, oval, and and often contain multiple small nucleoli. Scattered small lymphocytes are present. CD3 (SP7, [employer]) Background T-cells CD20 (L26, [place]) diffusely positive in Neoplastic B-cells PAX-5 (1EW, [employer]) diffusely positive in Neoplastic B-cells CD10 (SP67, [place]) Negative BCL-6 (G/191E/A8, [place]) Positive MUM-1 (MUM1p, [employer]) Positive Myc (Y69, [employer]) Positive BCL-2 Oncoprotein (124, [place]) Positive Ki67 (MIB-1) (K2, [employer]) Greater than 95% of cells in cycle Cyclin D1(SP4-R, [place]) Negative SAPPHIRE JOSE (NFX8822-R, [employer]) Negative. 10/17/2022 13:09 EDT [facility] Clinical History Massive LAD, history of prostate cancer; clinical diagnosis code: R59.1 10/17/2022 13:09 EDT [facility] Gross Description A. Received in formalin labelled with proper patient identification (initials D, D) and left tongue base are multiple pale plasencia irregular soft tissue fragments which measure 0.8 x 0.6 x 0.5 cm in aggregate and are submitted in toto in A1. TAHMINA NELSON(ASCP) 10/06/2022 15:22 10/17/2022 13:09 EDT [facility] Performing Lab [facility] 13:09 EDT [facility] Scanned Images 10/17/2022 13:09 EDT [facility] Tissue TONGUE STRUCTURE / Unknown 10/05/2022 8:00 EDT 10/06/2022 8:28 EDT Lg Ramírez MD PATHOLOGY ORDERABLES [facility] [address] [place] [address] documented in this encounter Visit Diagnoses Diagnosis Generalized enlarged lymph nodes Enlargement of lymph nodes documented in this encounter Care Teams Skull Grinder Relationship Specialty Start Date End Date Bobby Headley MD [address] [place] [id number] PCP - General 01/18/12 documented as of this encounter
--- OUTSIDE RECORDS SUMMARY | 2023-09-17 01:33 | XMS_ITS | Clinical Summary ---
Author Organization [facility] [place] [address] Care Team Providers Care Income Tax Auditor Name Role Phone Frederick Meade MD Primary Care Provider [phone] Allergies No known active allergies Medications Medication Sig Dispensed Refills Start Date End Date Status aspirin 81 mg Tablet, Chewable Take 81 mg by mouth daily. Active Ibuprofen 200 mg Capsule Take by mouth 4 times daily as needed. Reported on 05/24/2016 Active colchicine (COLCRYS) 0.6 mg Tablet Take 0.6 mg by mouth daily as needed (for Gout flare). Active ONETOUCH ULTRA BLUE TEST STRIP Strip USE TO TEST DAILY 3 03/13/2018 Active ONE TOUCH DELICA 33 gauge Misc USE TO TEST DAILY 4 03/11/2018 Acti ve ONETOUCH ULTRASOFT LANCETS Misc USE TO TEST DAILY 2 06/07/2018 Activ e amLODIPine (Norvasc) 5 mg tablet Take 5 mg by mouth daily. Active Psyllium Seed-Sucrose (0) Powder Take by mouth 2 times daily as needed. Active allopurinoL (Zyloprim) 100 mg tablet Take 200 mg by mouth daily. Active diphenoxylate-atro pine (Lomotil) 2.5-0.025 mg tablet Take 1 tablet by mouth 4 times daily as needed for Diarrhea. Active lactobacillus (BACID) Capsule Take 1 tablet by mouth daily. Active loratadine (Claritin) 10 mg Tablet Take 10 mg by mouth daily. Active lenalidomide (Revlimid) 20 mg capsuleIndications :progressive diffuse large B-cell lymphoma Take 1 capsule (20 mg) by mouth daily for 21 days. Call clinic before starting medication. Indications: progressive diffuse large B-cell lymphoma 09/12/2023 10/03/2023 Active predniSONE (Deltasone) 20 mg tablet Take 5 tablets by mouth daily for 4 days. 20 tablet 1 09/13/2023 09/17/2023 Active Active Problems Problem Noted Date Diagnosed Date Abnormal echocardiogram 11/20/2022 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 10/10/2022 Anemia, iron deficiency 08/21/2018 Gout 05/31/2017 Malignant neoplasm of prostate 09/01/2014 Encounters Date Type Department Care Team Description 09/14/2023 Telephone Hematology/Oncolog y at [address] [phone] Brenda Priest RN 09/13/2023 Telephone Hematology/Oncolog y at [address] [phone] Colt Ardon RN Other (Financial paperwork ) 09/12/2023 10:15 AM EDT Office Visit Hematology/Oncolog y at [address] [phone] Adrianne Ramon MD Stearns, Diane M, ASSOCIATE AUTOMATION ENGINEER 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; High risk medication use 09/12/2023 Telephone Hematology/Oncolog y at [address] [phone] Polly Orellana, OSCAR New Medication Request (revlimid) 09/12/2023 Telephone Hematology/Oncolog y at [address] [phone] Adrianne Ramon MD 09/12/2023 Travel 09/06/2023 1:00 PM EDT - 09/06/2023 11:59 PM EDT Hospital [place] [phone] Adrianne Ramon MD Discharge Disposition: Home 09/06/2023 12:59 PM EDT Hospital En[place] [phone] Adrianne Ramon MD 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; Skin nodule Discharge Disposition: Home 09/06/2023 10:15 AM EDT - 09/06/2023 12:58 PM EDT Hospital Encounter Radiology at [place] [phone] Adrianne Ramon MD 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; Skin nodule Discharge Disposition: Home 09/06/2023 9:48 AM EDT - 09/06/2023 10:14 AM EDT Hospital Encounter Hematology and Oncology at [place] [phone] 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; Skin nodule Discharge Disposition: Home 09/06/2023 Travel 08/22/2023 12:30 PM EDT Office Visit Hematology/Oncolog y at [address] [phone] Adrianne Ramon MD Stearns, Diane M, ASSOCIATE AUTOMATION ENGINEER 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 No 10/11/2022 Sex and Gender Information Value Date Recorded Sex Assigned at Not on file Gender Identity Not on file Sexual Orientation Not on file Last Filed Vital Signs Vital Sign Reading Time Taken Comments Blood Pressure 139/63 09/12/2023 9:52 AM EDT Pulse 85 09/12/2023 9:52 AM EDT Temperature 36.3 ??C (97.3 ??F) 09/12/2023 9:52 AM ED T Respiratory Rate 16 09/12/2023 9:52 AM EDT Oxygen Saturation 96% 09/12/2023 9:52 AM EDT Inhaled Oxygen Concentration - - Weight 92.1 kg (203 lb) 09/12/2023 9:52 AM EDT Height 168.6 cm (5' 6.38) 09/12/2023 9:52 AM ED T Body Mass Index 32.39 09/12/2023 9:52 AM EDT Plan of Treatment Upcoming Encounters Date Type Department Care Team (Late st Contact Info) Description 09/19/2023 8:00 AM EDT Infusion Hematology Oncology at [address] [phone] 09/21/2023 9:30 AM EDT Office Visit Hematology [place] [phone] Micha Givens Jr., MD [facility] [address] [place] [address] 09/21/2023 10:30 AM EDT Clinical Support Hematology [place] [phone] Danii Her RN 09/26/2023 8:30 AM EDT Infusion Hematology Oncology at [address] [phone] 10/03/2023 9:00 AM EDT Office Visit Hematology/Oncology at [address] [phone] Adrianne Ramon MD [facility] [address] [place] [address] Yael Merlos, KARLA [facility] [address] [place] [address] 10/03/2023 9:30 AM EDT Infusion Hematology Oncology at [address] [phone] 10/10/2023 8:30 AM EDT Infusion Hematology Oncology at [address] [phone] Health Maintenance Due Date Last Done Comments CT Colonography 1948 Colonoscopy 1948 Colorectal Cancer Screening 1948 FIT DNA 1948 FIT 1948 Sigmoidoscopy (10 year) with FIT yearly 1948 Sigmoidoscopy 1948 Lipid Screening 1966 Tdap adult 1967 Tetanus vaccine 1967 Zoster vaccine (1 of 2) 1998 Advance Directive 2003 AAA Screen 2013 Pneumoccocal Vaccine: 65+ (1 of 1 - PCV) 2013 Covid-19 Vaccine (1 - 2022-24 season) 2022 Influenza (Flu) vaccine (1 o f 1 - Influenza standard series) 10/21/2023 Hepatitis C Screening Completed 10/17/2022 Medical Devices Explanted Type Area Laborer Drying Department Device Identifier Shelf Expiration Date Model / Serial / Lot Port Infusion 8fr Cath Power Injectable Lp 1lum Ct Ti [id number]/17 Implanted:Qty: 1 on 10/17/2022 by Gail Jha PA Explanted:Qty: 1 on 03/29/2023 by Chalo Crews PA IMPLANTS Right: Chest Wall [employer] - [employer] BARD 03/21/2024 [id number] / / [id number] Procedures Procedure Name Priority Date/Time Associated Diagnosis Comments NM PET CT STANDARD PLUS EXTREMITIES AND HEAD Routine 09/06/2023 2:45 PM EDT 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 Skin nodule POCT GLUCOSE Routine 09/06/2023 1:06 PM EDT IR BIOPSY LYMPH NODE (CHEST/ABD/PELVIS) Routine 09/06/2023 12:35 PM EDT 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 Skin nodule FLOW CYTOMETRY REPORT Routine 09/06/2023 12:28 PM EDT IMMUNOPHENOTYPING FLOW CYTOMETRY Routine 09/06/2023 12:28 PM EDT FLOW CYTOMETRY REPORT Routine 09/06/2023 11:40 AM EDT IMMUNOPHENOTYPING FLOW CYTOMETRY Routine 09/06/2023 11:40 AM EDT SURGICAL PATHOLOGY REPORT Routine 2023 11:35 AM EDT ANAEROBIC CULTURE Routine 09/06/2023 11: 25 AM EDT TISSUE CULTURE Routine 09/06/2023 11:25 AM EDT FUNGAL STAIN Routine 09/06/2023 11:25 AM EDT FUNGUS CULTURE Routine 09/06/2023 11:25 AM EDT HC FUNGUS CULTURE, MISC SOURCE Routine 09/06/2023 11:25 AM EDT HC AFB SMEAR Routine 09/06/2023 11:25 AM EDT HC TISSUE HOMOGENIZATION FOR CULTURE Routine 09/06/2023 11:25 AM EDT SPECIMEN TO PATHOLOGY Routine 09/06/2023 11:20 AM EDT SPECIMEN TO PATHOLOGY Routine 09/06/2023 10:43 AM EDT CYTOPATHOLOGY NON-GYNECOLOGICAL Routine 09/06/2023 10:41 AM EDT POCT GLUCOSE Routine 09/06/2023 10:41 AM EDT DIFFERENTIAL, AUTOMATED STAT 09/06/19 10:12 AM EDT 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 Skin nodule HEMOGRAM STAT 09/06/2023 10:12 AM EDT 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 Skin nodule HC LACTIC DEHYDROGENASE STAT 09/06/19 10:12 AM EDT 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 Skin nodule COMPREHENSIVE METABOLIC PANEL (NON-FASTING) STAT 09/06/2023 10:12 AM EDT 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 Skin nodule HC CBC,PLT & AUTO DIFF STAT 10:12 AM EDT 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 Skin nodule HC VENIPUNCTURE STAT 09/06/2023 10:12 AM EDT 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 Skin nodule COMPREHENSIVE METABOLIC PANEL (NON-FASTING) Routine 08/22/2023 CBC (WITH DIFF) Routine 08/22/2023 HC HEPATITIS C ANTIBODY STAT 10/18/19 11:45 AM EDT 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 from Last 3 Months or Most Recently Relevant to Health Maintenance Results * NM PET CT Standard Plus Extremities and Head (09/06/2023 2:45 PM EDT) WORKSTATION ID [id number] RAD Anatomical Region Laterality Modality Positron Emissio [...] who have questions please contact the health long term care social worker that requested your imaging first. ? Electronically signed by: Rohan Henley MD, [facility] ([phone]), at 09/10/2023 11:18 AM Narrative 09/10/2023 11:18 [...] unspecified. TECHNIQUE: Procedure: Following IV injection of 33-cinymi-5-deoxyglucose (FDG) a standard uptake of approximately 60 [...] unspecified. TECHNIQUE: Procedure: Following IV injection of 15-yojjtm-1-deoxyglucose(FDG) a standard uptake of approximately 60 minutes, [...] patients who have questions please contactthe health long term care social worker that requested your imaging first. Electronically signed by: Rohan Henley MD, [facility]([phone]), at 09/10/2023 11:18 AM Adrianne Ramon MD IMG PET ORDERABL ES * POCT Glucose (09/06/2023 1:06 PM EDT) Only the most recent of2 resultswithin the time period is included. POC Glucose 98 65 - 199 mg/dL [facility] Comment: Supplemental ranges: <140 mg/dL before meals <180 mg/dL all other times of the day Blood 09/06/2023 1:06 PM EDT 09/06/2023 1:06 PM EDT Adrianne Ramon MD POINT OF CARE TE ST ORDERABLES [facility] [place] [address] * IR Biopsy Lymph Node (Chest/Abdomen/Pelvis) (09/06/2023 [...] in saline and formalin. Resident/Fellow: None. Attending: Dr. Dae Baires performed this procedure. ? Adrianne Ramon MD IMG IR ORDERABLE S * Immunophenotyping Flow Cytometry (09/06/2023 12:28 PM EDT) Only the most recent of2 resultswithin the time period is included. Immunophenotyping Flow See Comment [facility] Comment: When completed by the Pathologist, the Flow Cytometry Report ([id number]) will display under the Pathology Results section within eDH. Other 09/06/2023 12:2 8 PM EDT 09/06/2023 12:47 PM EDT Narrative Resulting Agency Comment Spec In Lab Micha Pearl MD HEMATOLOGY ORDERABLE S [facility] [place] [address] * Flow Cytometry Report (09/06/2023 12:28 PM EDT) Only the most recent of2 resultswithin the time period is included. Flow Cytometry Report [id number] ? Location: 3Z The signing pathologist has (i) examined the relevant preparation(s) for the specimen(s) and (ii) rendered or confirmed the diagnosis(es). . ?Flow Cytometry DIAGNOSIS ? 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 See comment. Electronically signed by: ?Filemon Cortez MD Verified: ??09/10/2023 15:05 ??Hematopathologist Performed at: ??-[facility] Dept. of Pathology, [place] [address] Med Spa Manager: Katherine Lopez MD, FCAP, ??CLIA Certificate: [id number] DISCUSSION The T-lymphocytes , B- lymphocytes and CD56+ NK cells comprise 22%, 77%, 0% of the gated population, respectively. The CD19+/CD20+ B-lymphocytes are positive for CD5, Cd23( minor) and negative for CD10, They show lambda Ig light chain restriction. By SS the lymphocytes appear large The T-cells are an unremarkable ratio of CD4+ and CD8+ T lymphs (1.4). No loss or atypical intensity distributions are seen for any cage T antigen (CD2, 3, 4+8, 5, 7). No distinct blast cluster is seen on CD45 vs. right light scatter (SSC), nor loss of SSC on the maturing granulocytes. NOTE: ??Findings support the diagnosis of lymphoma and they indicate ??B ??cell lineage. However, classification of this process requires correlation with the morphology because the phenotypic features are relatively non-specific. Flow analysis is an ancillary study. A definite diagnosis requires correlation with the morphologic features of this process and if necessary, correlation with other ancillary studies like immunohistochemistr y, enzyme cytochemistry and/or cyto/ molecular genetics. This test was developed and its performance characteristics determined by the Clinical Flow Cytometry Laboratory at [facility]. It has not been cleared or approved by the U.S. Food and Drug Administration. ??The FDA has determined that such clearance or approval is not necessary. ??This test is used for clinical purposes. ??It should not be regarded as investigational or for research. This laboratory is certified under the Clinical Laboratory Improvement Act of 1988 (CLIA) as qualified to perform high complexity clinical laboratory testing. SPECIMEN PROCESSING [id number] Cells for immunophenotypic analysis were derived from LEFT AUX LYMPH NODE. CD45 vs side scatter gating was utilized to identify a LYMPHOID analysis region that comprises approximately 95-97% of all cells. The following markers were assessed: CD2, CD3, CD4, CD5, CD7, CD8, CD10, CD19, CD20, CD23, CD38, CD45, CD56, FMC-7, kappa light chain, and lambda light chain. CLINICAL INFORMATION dlbcl [facility] 09/06/2023 12:2 8 PM EDT Micha Pearl MD PATHOLOGY/CYTOLOGY O RDLOGAN [facility] [place] [address] * (ABNORMAL) Surgical Pathology Report (09/06/2023 11:35 AM EDT) Surgical Pathology Report [id number] ? Location: [facility] The signing pathologist has (i) examined the relevant preparation(s) for the specimen(s) and (ii) rendered or confirmed the diagnosis(es). . 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 B - Left axillary lymph node, biopsy Diagnosis : D iffuse large B-cell lymphoma- NOS. Electronically signed by: ?Dana OCASIO, Filemon Verified: ??09/10/2023 18:38 ??Hematopathologist Performed at: ??-[facility] Dept. of Pathology, [place] [address] Med Spa Manager: Katherine Lopez MD, AP, ??CLIA Certificate: [id number] SYNOPTIC THIS RESULT REQUIRES PHYSICIAN/A.P.P. FOLLOW UP ADDITIONAL STUDIES The biopsies ( ??B) contains a diffuse proliferation ? of large abnormal lymphocytes with vesicular nuclear chromatin, prominent nucleoli and ample cytoplasm. Biopsy A shows significant crush with abnormal lymphoid infiltrate of large cells. Immunohistochemistry Studies: Interpretation: ??Formalin-fixed, paraffin-embedded tissue sections are studied for CD3, CD20, CD10, Bcl2, Bcl6, MUM1, ?? cMYC, Ki67, Cyclind1, ??on block(s) B1 using the polymer Technique with appropriate controls. ??The large abnormal lymphocytes are positive for CD20, BCl2(>50%), ?? cMYC(>40%), MUm1, Bcl6 and negative for the rest of the markers they were tested for .Ki67 is at 80%. These ??IHC's provide the pathologist with adjunctive diagnostic information. ??Antibody specificity has been verified by testing antibodies on a series of in-house tissues with known immunohistochemical performance characteristics. ??The clinical interpretation of any antibody-positive staining or its absence is evaluated within the context of clinical presentation, morphology, histopathological criteria, and other diagnostic tests. Cytogenetic/FISH for MYC, Bcl2, Bcl6 rearrangements are ongoing . Should MYC rearrangements be seen along with an additional FISH rearrangement of BCl2 and/or BCl6, the findings will be compatible with a diagnosis of Double HIT/Triple HIT lymphoma. ?? Addendum/Separate report to follow. Chele ??SH et al . 2016 revision WHO of lymphoid neoplasms . Blood . 2016. 127 (20):4829-3944. Rafael CP et al . Blood 103:275-282 SPECIMEN(S) SUBMITTED A - Left antecubital mass, with associated deep tissue mass, biopsy (Multiple) B - left axillary lymph node, biopsy (Multiple) CLINICAL INFORMATION History of diffuse large B-cell lymphoma. ??Completed therapy 6 months ago, history of lymphoma, enlarged left axillary lymph nodes . SPECIMEN PROCESSING A - Labeled/Fixative: Left antecubital mass, formalin. Quantity/Size: Six, ranging from 0.3 to 1.5 cm Tissue Description: Holguin-pink needle core biopsies. Sections/Processing: Entirely submitted in 2 cassettes labeled A1-A2. B - Labeled/Fixative: Left axillary lymph node, formalin. Quantity/Size: Fragments, ranging from 0.2 to 1.4 cm Tissue Description: Holguin-pink needle core biopsies. Sections/Processing: Entirely submitted in 2 cassettes labeled B1-B2. ??CCP(A) [facility] 09/06/2023 11:3 5 AM EDT James Champion DO PATHOLOGY/CYTOLOGY O RDERABLES Performing Organization Address [facility] Co de Phone Number [facility] [place] [address] * Anaerobic Culture (09/06/2023 11:25 AM EDT) Anaerobic Culture No anaerobic organisms isolated [facility] Arm 09/06/2023 11:2 5 AM EDT 09/06/2023 12:21 PM EDT Comment:Left Arm Collection versus mass Narrative Resulting Agency Comment Spec In Lab James Champion DO MICROBIOLOGY - GENER AL ORDERABLES Performing Organization Address [facility] de Phone Number [facility] [place] [address] * Calcofluor White Stain (09/06/2023 11:25 AM EDT) Calcofluor Stain Calcofluor White Preparation: Negative [facility] Other 09/06/2023 11:2 5 AM EDT 09/06/2023 12:21 PM EDT Comment:Left Arm Collection versus Mass Narrative Resulting Agency Comment Spec In Lab James Champion DO MICROBIOLOGY - GENER AL ORDERABLES Performing Organization Address [facility] de Phone Number [facility] [place] [address] * Tissue culture (09/06/2023 11:25 AM EDT) Tissue Culture No growth [facility] Gram Stain Few Neutrophils seen No microorganisms seen. [facility] Arm 09/06/2023 11:2 5 AM EDT 09/06/2023 12:21 PM EDT Comment:Left Arm Collection versus mass Narrative Resulting Agency Comment Spec In Lab James Champion DO MICROBIOLOGY - GENER AL ORDERABLES Performing Organization Address [facility] Co de Phone Number [facility] [place] [address] * Specimen to Pathology (09/06/2023 11:20 AM EDT) Only the most recent of2 resultswithin the time period is included. AP Specimen 09/06/2023 11:2 0 AM EDT 09/06/2023 11:20 AM EDT [facility] - 09/06/2023 11:20 AM EDT Specimen requisition ordered. ??Separate Pathology report to follow James Champion DO PATHOLOGY/CYTOLOGY O RDERABLES Performing Organization Address [facility]/ZIP [place] [address] * Cytopathology Non-Gynecological (09/06/2023 10:41 AM EDT) AP Specimen 09/06/2023 10:4 1 AM EDT 09/06/2023 10:41 AM EDT [facility] - 09/06/2023 10:41 AM EDT Specimen requisition ordered. ??Separate Pathology report to follow Micha Pearl MD PATHOLOGY/CYTOLOGY O RDERABLES Performing Organization Address [facility]/ZIP Co de Phone Number [facility] [place] [address] * (ABNORMAL) Hemogram (09/06/2023 10:12 AM EDT) WBC 6.5 4.0 - 9.5 x10(3)/[facility] LAB[facility]ATORY RBC 3.98(L) 4.58 - 5.54 x10(6)/[facility]ORY Hemoglobin 12.0(L) 13.7 - 16.5 g/dL [facility] Hematocrit 36.5(L) 40.5 - 48.5 % [facility] MCV 91.7 82.9 - 93.1 fL [facility] MCH 30.2 27.5 - 32.1 pg [facility] 32.9 32.0 - 35.7 g/dL [facility] Platelets 145 145 - 357 x10(3)/[facility] LABORATORY RDWSD 48.4(H) 36.0 - 45.0 [facility] LABORATORY RDWCV 14.4(H) 11.4 - 13.8 % [facility] MPV 10.3 7.6 - 12.9 [facility] LABORATORY nRBC % Auto 0.0 % [facility] nRBC Abs Auto 0.000 0.000 - 0.000 x10(3)/[facility] Blood 09/06/2023 10:1 2 AM EDT 09/06/2023 10:16 AM EDT Narrative Resulting Agency Comment Spec In Lab Adrianne Ramon MD HEMATOLOGY ORDER DUONG [facility] [place] [address] * (ABNORMAL) Differential, Automated (09/06/2023 10:12 AM EDT) Neutrophils % 64.9 % [facility] Neutr Abs (ANC) 4.20 1.70 - 6.10 x10(3)/mc L [facility] Lymphocytes % 14.1 % [facility] Lymphocytes Abs 0.9 0.9 - 3.2 x10(3)/[facility] LAB[facility] Monocytes % 16.7 % [facility] Monocyte Abs 1.1(H) 0.3 - 0.9 x10(3)/mc L [facility] Eosinophils % 3.7 % [facility] Eosinophils Abs 0.2 0.0 - 0.4 x10(3)/[facility] LABORATORY Basophils % 0.3 % [facility] Basophils Abs 0.0 0.0 - 0.1 x10(3)/ L [facility] Immature Gran % 0.30 % [facility] Comment: Immature granulocytes(IG's)percentage and absolute count will include metamyelocytes, myelocytes, and promyelocytes. Blood smears from CBCs yielding IG's will be scanned manually for concordance. If this scan disagrees with the automated IG or if promyelocytes are noted, a manual differential will be performed. Nellie Gran Abs 0.02 0.00 - 0.04 x10(3)/mc L [facility] Blood 09/06/2023 10:1 2 AM EDT 09/06/2023 10:16 AM EDT Narrative Resulting Agency Comment Spec In Lab Adrianne Ramon MD HEMATOLOGY ORDER DUONG Performing Organization Address [facility] Co de Phone Number [facility] [place] [address] * Blood culture (09/06/2023 10:12 AM EDT) Blood Culture No growth at 5 days. [facility] Blood ANTECUBITAL REGION STRUCTURE / Unknown 09/06/2023 10:12 AM EDT 09/06/2023 10:31 AM EDT Comment:Peripheral culture Narrative Resulting Agency Comment Spec In Lab Adrianne Ramon MD MICROBIOLOGY - B LOOD ORDERABLES Performing Organization Address [facility] Co de Phone Number [facility] [place] [address] * (ABNORMAL) Lactate Dehydrogenase (09/06/2023 10:12 AM EDT) LDH 251(H) 110 - 220 unit/L [facility] Blood 09/06/2023 10:1 2 AM EDT 09/06/2023 10:16 AM EDT Narrative Resulting Agency Comment Spec In Lab Adrianne Ramon MD CHEMISTRY ORDERA BLES Performing Organization Address City/[facility] Co de Phone Number [facility] [place] [address] * (ABNORMAL) Comprehensive metabolic panel (non-fasting) (09/06/2023 10:12 AM EDT) Only the most recent of2 resultswithin the time period is included. Glucose Lvl 170 65 - 199 mg/dL [facility] Comment:Diabetes: >=200 mg/d L plus symptoms BUN 15 10 - 20 mg/dL [facility] Creatinine 1.07 0.80 - 1.50 mg/dL [facility] Sodium 143 135 - 145 mmol/L [facility] Potassium 3.8 3.5 - 5.0 mmol/L [facility] Comment: Please note: ??Patients with WBC >100,000 may have falsely elevated Potassium levels. ??For accurate Potassium quantification in these patients send serum separator tube (gold top) for subsequent determinations. ??Contact the Clinical Chemistry Laboratory if there are any questions. Chloride 107 98 - 107 mmol/L [facility] CO2 25 22 - 31 mmol/L [facility] Anion Gap 11 5 - 15 mmol/L [facility] Calcium 9.2 8.5 - 10.5 mg/dL [facility] Total Protein 6.1 6.1 - 8.0 g/dL [facility] Albumin 3.7 3.2 - 5.2 g/dL [facility] AST 37 0 - 39 unit/L [facility] ALT 61(H) 0 - 55 unit/L [facility] Alk Phos 151(H) 40 - 130 unit/L [facility] Total Bilirubin 0.3 0.2 - 1.3 mg/dL [facility] Estimated GFR 72 >=60 mL/min/1. 73 m?? [facility] Comment: This patient's estimated GFR [...] Lab Adrianne Ramon MD CHEMISTRY ORDERA BLES [facility] [place] [address] * CBC (with Diff) (08/22/2023) Pathologist [facility] WBC 8.12 Hemoglobin 13.2 Hematocrit 38.4 Platelets 199 Neutr Abs (ANC) 6.02 Blood 08/22/2023 Historical Provider HEMATOLOGY ORDERA BLES * Hepatitis C Antibody (10/17/2022 11:45 AM EDT) Pathologist [facility] Hepatitis C Ab Negative Negative [facility] Blood 10/17/2022 11:4 5 AM EDT 10/17/2022 12:08 PM EDT Narrative Resulting Agency Comment Spec In Lab Adrianne Ramon MD IMMUNOLOGY ORDER DUONG [facility] [place] [address] from Last 3 Months or Most Recently Relevant to Health Maintenance Advance Directives Documents on File Type Date Recorded Patient [employer]er Expl anation POLST/COLST (Order for Life Sustaining Treatment) 09/12/2023 10:08 AM dnr colst * Attempt Cardiopulmonary Resuscitation - Inpatient (Latest Code Status on File) Date Activated Date Inactivated Comments 09/06/2023 10:51 AM 09/07/2023 4:33 AM Question Answer Comments Code Status decision made by: Patient Content of discussion: Full Code * Attempt Cardiopulmonary Resuscitation - Inpatient Date Activated Date Inactivated Comments 03/29/2023 1:36 PM 03/30/2023 4:34 AM Question Answer Comments Code Status decision made by: Patient * Attempt Cardiopulmonary Resuscitation - Inpatient Date Activated Date Inactivated Comments 10/17/2022 8:16 AM 10/18/2022 4:40 AM Question Answer Comments Code Status decision made by: Patient Care Teams Income Tax Auditor Relationship Specialty Start Date End Date Frederick Meade MD [address] [place] [address] PCP - General Family Medicine 11/29/17
--- OUTSIDE RECORDS SUMMARY | 2023-09-17 01:33 | XMS_ITS | Encounter Summary ---
Author Organization [facility] [place] [place] [address] Care Team Providers Care Kitchen Stewardess Name Role Phone Frederick Meade MD Primary Care Provider [phone] Reason for Referral * Diagnostic Test (Routine) - Closed Specialty Diagnoses / Procedures Referred By Contac t Referred To Contact Radiology Diagnoses 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 Skin nodule Procedures IR Biopsy Lymph Node (Chest/Abdomen/Pelvis) IR Biopsy Lymph Node (Head/Neck) Adrianne Ramon MD [facility] [address] HEM[place] [address] [place] [address] Referral ID Status Reason Start Date Expiration Date V isits Requested Visits Authorized [id number] Closed Specialty Service Requested 08/22/2023 02/21/2025 1 1 Reason for Visit * Diagnostic Test (Routine) - Closed Specialty Diagnoses / Procedures Referred By Contac t Referred To Contact Radiology Diagnoses 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 Skin nodule Procedures IR Biopsy Lymph Node (Chest/Abdomen/Pelvis) IR Biopsy Lymph Node (Head/Neck) Adrianne Ramon MD [facility] [address] HEMAT[place] [address] [facility] [place] [address] Referral ID Status Reason Start Date Expiration Date V isits Requested Visits Authorized [id number] Closed Specialty Service Requested 08/22/2023 02/21/2025 1 1 Encounter Details Date Type Department Care Team (Late st Contact Info) Description 09/06/2023 10:15 AM EDT - 09/06/2023 12:58 PM EDT Hospital Encounter [place] [address] Adrianne Ramon MD [facility] [address] HEMATOLOG[place] [address] 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; Skin nodule Discharge Disposition: Home Social History Tobacco Use Types Packs/Day Years [...] place to sleep or slept in a care home (including now)? No 10/11/2022 Sex and Gender Information Value Date Recorded Sex Assigned at Not on file Gender Identity Not on file Sexual Orientation Not on file documented as of this encounter Last Filed Vital Signs Vital Sign Reading Time Taken Comments Blood Pressure 146/115 09/06/2023 12:40 PM EDT Pulse 79 09/06/2023 10:38 AM EDT Temperature 36.6 ??C (97.9 ??F) 09/06/2023 12:40 PM E DT Respiratory Rate 18 09/06/2023 12:40 PM EDT Oxygen Saturation 95% 09/06/2023 12:45 PM EDT Inhaled Oxygen Concentration - - Weight - - Height - - Body Mass Index - - documented in this encounter Discharge Instructions * Discharge Instructions* Andreas Caldwell RN - 09/06/2023 9:38 AM EDT [facility] Vascular and Interventional Radiology Lymph node biopsy Biopsy Discharge Instructions Call your doctor immediately if you develop a sudden onset of weakness, increased pain or swelling at the biopsy site or heavy bleeding at the biopsy site. Activity And Diet: Go home and rest quietly for the remainder of the day. You may resume your normal activities tomorrow. Resume your usual diet after the procedure. Do not drive, sign any important/legal documents, or make any important decisions for 24 hours following sedation medications. You have received medication during your procedure to help lessen anxiety and keep you comfortable.These medications affect judgement and reaction time. We recommend that you do not drive, operate equipment, sign any important documents, or smoke unattended for 24 hours following your procedure. Because of the sedation, be careful on stairs, as you may be unsteady on your feet. When to call your healthcare provider: If you see any redness, swelling or drainage at the biopsy site. If you develop chills. If you have a fever greater than or equal to 101 degrees Fahrenheit. If you develop pain around the biopsy site. Bandage: Check the dressing/bandaid throughout the day for an increase in drainage. Keep the biopsy site dryfor 24 hours. Replace the bandaid as needed. You may shower 24 hours after the biopsy. There may beDerma-mcqueen (skin glue) also, allow this to flake off. Medication: DO NOT take aspirin-containing products, ibuprofen, or blood-thinning medication for the next 24 hours unless your clinician says you may do so. Generally you may use acetaminophen as needed for discomfort unless you have liver disease and are instructed not to take acetaminophen. Biopsy Results The results of your biopsy should be available within 5 business days and will be reported to you by your primary live in caregiver or the clinician who ordered the biopsy. Please do not call us for results as we will not have them. If you have not been contacted by your clinician within 5 business days you should call that officefor further information. When to call the Interventional Radiology Department: Please call with any questions or concerns. If it is during regular office hours, please call [phone]. If it is after regular office hours, or on weekends or holidays, please call [phone] and ask to speak to the Substitute Nurse electronics lead for Interventional Radiology. ---- documented in this encounter Medications at Time of Discharge Medication Sig Dispensed Refills Start Date End Date loratadine (Claritin) 10 mg Tablet Take 10 mg by mouth daily. diphenoxylate-atropine (Lomotil) 2.5-0.025 mg tablet Take 1 tablet by mouth 4 times daily as needed for Diarrhea. lactobacillus (BACID) Capsule Take 1 tablet by mouth daily. Psyllium Seed-Sucrose (0) Powder Take by mouth 2 times daily as needed. allopurinoL (Zyloprim) 100 mg tablet Take 200 mg by mouth daily. amLODIPine (Norvasc) 5 mg tablet Take 5 mg by mouth daily. ONETOUCH ULTRA BLUE TEST STRIP Strip USE TO TEST DAILY 3 03/13/2018 ONE TOUCH DELICA 33 gauge Misc USE TO TEST DAILY 4 03/11/2018 ONETOUCH ULTRASOFT LANCETS Misc USE TO TEST DAILY 2 06/07/2018 colchicine (COLCRYS) 0.6 mg Tablet Take 0.6 mg by mouth daily as needed (for Gout flare). Ibuprofen 200 mg Capsule Take by mouth 4 times daily as needed. Reported on 05/24/2016 aspirin 81 mg Tablet, Chewable Take 81 mg by mouth daily. documented as of this encounter Progress Notes * Andreas Caldwell RN - 09/06/2023 12:21 PM EDT [facility] DATABASE Name: Cheo Freire Date of : 1950 AGE: 73 y.o. Address: [address] [place] [address] [address] [facility] [address] Phone: [phone] (home) Mobile: Telephone Information: Referring Provider: Adrianne Ramon REASON FOR VISIT: Order Questions Answers Where will study be performed? [facility] Radiology [120] To be scheduled Ordering department to coordinate scheduling Reason for exam and clinical history: History of diffuse large B-cell lymphoma. Completed therapy 6months ago. Left antecubital mass, with associated deep tissue mass, & L ax LN. Abscess vs lymphoma. Discuss w Bruce Husain. Request largest core possible. Send for culture and hem path Exam/Procedure requested: Lg Core of antecub and L ax LN Does this patient have any known bleeding risk factors or conditions that places them at higher risk for a procedural hemorrhage? None Is the patient on anticoagulant / antiplatelet therapy ? Aspirin No provider workup Plan Planned procedure: left axillay and left antecubital lymph node biopsies Labs to be performed day of procedure: No labs Sedation: Moderate (Conscious sedation) Prophylactic antibiotic : None Contrast: No contrast Additional medications for procedure: Lidocaine Planned access site: provider preference Position: Supine Consent: Pending Medications to discontinue (and days held): None Cytopathology presence needed: No Case Urgency:: G1-Elective Outpatient intervention within 4-7 days No Known Allergies Pertinent PMH: Patient Active Problem List Diagnosis Code Malignant neoplasm of prostate C61 Gout M10.9 Anemia, iron deficiency D50.9 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 C83.38 Abnormal echocardiogram R93.1 Date/Procedure Meds Given/Comments 10/17/22 Mediport Placement Fentanyl 125 mcg IV, Versed 2.5 mg IV, local 03/29/23 Mediport removal Local only 09/06/23 Left Axilla and left antecubital lymph node biopsy Fentanyl 100mcg/IV. Tolerated procedure well. 1056 to procedure room IR4 via stretcher. Onto table supine. All monitors, O2, safety strap in place. Meds per protocol. Laboratory Results: Lab Results Component Value Date CREATININE 1.3 08/22/2023 Lab Results Component Value Date K 3.5 08/22/2023 Lab Results Component Value Date PLATELET 199 08/22/2023 documented in this encounter H&P Notes * Silvio Wang, DO - 09/06/2023 8:44 AM EDT Interventional Radiology Focused Pre-procedure H&P: PCP: Frederick Meade MD Referring Provider: Adrianne Ramon Planned procedure: left axillay and left antecubital lymph node biopsies Procedure indication: Left axillary and antecubital lymph node biopsies IR workflow: Procedure request received through Interventional Radiology eDH order queue. Order Questions Answers Where will study be performed? [facility] Radiology [120] To be scheduled Ordering department to coordinate scheduling Reason for exam and clinical history: History of diffuse large B-cell lymphoma. Completed therapy 6months ago. Left antecubital mass, with associated deep tissue mass, & L ax LN. Abscess vs lymphoma. Discuss w Bruce Husain. Request largest core possible. Send for culture and hem path Exam/Procedure requested: Lg Core of antecub and L ax LN Does this patient have any known bleeding risk factors or conditions that places them at higher risk for a procedural hemorrhage? None Is the patient on anticoagulant / antiplatelet therapy ? Aspirin History of present illness: Per chart review, Cheo Freire is a 73 y.o. male who presents to Interventional Radiology to undergo left axillary and left antecubital lymph node biopsies in the setting of new palpable lymph nodes visualized on recent intra-office ultrasound. Remainder of patient's medical and surgical history, allergies, medications, and social/family history obtained below as previously outlined in patient's medical record. IR history: port placement 10/18/23, subsequent removal 03/29/23. Imaging: none Assessment: 73 y.o. male with history of diffuse large B cell lymphoma presenting to InterventionalRadiology for left axillary and left antecubital core needle biopsies. Patient will need ultrasoundin pre-angio to evaluate for interval change. Plan Planned procedure: left axillay and left antecubital lymph node biopsies Labs to be performed day of procedure: No labs Sedation: Moderate (Conscious sedation) Prophylactic antibiotic : None Contrast: No contrast Additional medications for procedure: Lidocaine Planned access site: provider preference Position: Supine Consent: Pending Medications to discontinue (and days held): None Cytopathology presence needed: No Case Urgency:: G1-Elective Outpatient intervention within 4-7 days Labs: Lab Results Component Value Date HGB 13.2 08/22/2023 HCT 38.4 08/22/2023 WBC 8.12 08/22/2023 PLATELET 199 08/22/2023 BUN 14 06/13/2023 CREATININE 1.3 08/22/2023 ALBUMIN 3.5 06/13/2023 BILITOT 0.4 08/22/2023 AST 23 08/22/2023 ALT 27 08/22/2023 ALKPHOS 122 08/22/2023 Allergies: Patient has no known allergies. Medications: Current Outpatient Medications on File Prior to Encounter Medication Sig Dispense Refill loratadine (Claritin) 10 mg Tablet Take 10 mg by mouth daily. diphenoxylate-atropine (Lomotil) 2.5-0.025 mg tablet Take 1 tablet by mouth 4 times daily as neededfor Diarrhea. lactobacillus (BACID) Capsule Take 1 tablet by mouth daily. Psyllium Seed-Sucrose (0) Powder Take by mouth 2 times daily as needed. allopurinoL (Zyloprim) 100 mg tablet Take 200 mg by mouth daily. amLODIPine (Norvasc) 5 mg tablet Take 5 mg by mouth daily. ONETOUCH ULTRA BLUE TEST STRIP Strip USE TO TEST DAILY 3 ONE TOUCH DELICA 33 gauge Misc USE TO TEST DAILY 4 ONETOUCH ULTRASOFT LANCETS Misc USE TO TEST DAILY 2 colchicine (COLCRYS) 0.6 mg Tablet Take 0.6 mg by mouth daily as needed (for Gout flare). Ibuprofen 200 mg Capsule Take by mouth 4 times daily as needed. Reported on 05/24/2016 aspirin 81 mg Tablet, Chewable Take 81 mg by mouth daily. No current facility-administered medications on file prior to encounter. Past medical/surgical history: Patient Active Problem List Diagnosis Code Malignant neoplasm of prostate C61 Gout M10.9 Anemia, iron deficiency D50.9 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 C83.38 Abnormal echocardiogram R93.1 Past Medical History: Diagnosis Date DM (diabetes mellitus) HTN (hypertension) Obesity Pulmonary emboli Testicular abnormality Past Surgical History: Procedure Laterality Date APPENDECTOMY 1957 CATARACT REMOVAL Bilateral IR MEDIPORT PLACEMENT 10/17/2022 IR Mediport Placement 10/17/2022 Gail Jha PA [facility] INTERVENTIONL RAD IR MEDIPORT REMOVAL 03/29/2023 IR Mediport Removal 03/29/2023 Ole Arvizu MD [facility] INTERVENTIONL RAD TONSILLECTOMY 1956 Social history and habits: Social History Tobacco Use Smoking status: Former Current packs/day: 0.00 Types: Cigarettes Quit date: 1985 Years since quittin.5 Smokeless tobacco: Former Quit date: 02/19/1986 Tobacco comments: started smoking in highschool Vaping Use Vaping status: Never Used Substance Use Topics Alcohol use: Yes Alcohol/week: 1.0 standard drink of alcohol Types: 1 Standard drinks or equivalent per week Comment: 3-4 beers month Drug use: Not Currently Significant family history: Family History Problem Relation Age of Onset Type 2 Diabetes Father Cirrhosis Mother 38 Pertinent ROS: as per HPI Physical exam: Pending (to be performed in interventional radiology the day of procedure) ASA: Pending (to be assessed in interventional radiology the day of procedure) Mallampati class: Pending (to be assessed in interventional radiology the day of procedure) 09/06/2023 Silvio Wang DO documented in this encounter Procedure Notes * Micha Pearl MD - 09/06/2023 11:52 AM EDT Images from the original note were not included. IR PROCEDURE NOTE Procedure: Ultrasound-guided biopsy of superficial mass left antecubital region, Indication for Procedure: Per Dr. Wang, Cheo Freire is a 73 y.o. male who presents to Interventional Radiology to undergo left axillary and left antecubital lymph node biopsies in the setting of new palpable lymph nodes visualized onrecent intra-office ultrasound. From the order, History of diffuse large B-cell lymphoma. Completed therapy 6 months ago. Left antecubital mass, with associated deep tissue mass, & L ax LN. Abscess vs lymphoma. Procedure events and findings: Patient was positioned supine. Initial ultrasound of the visible raised erythematous mass in the left antecubital fossa showed subcutaneous hypoechoic regions consistent with edema but no hypoechoic region to suggest a fluid component. Appearance not suggestive of adenopathy. Site for biopsy was chosen and marked on the skin. The region was prepped and draped, maximal sterile [...] guidance via a lateral to medial approach. Multiple 18-gauge 2 cm cores were obtained and submitted in saline and formalin and for infectious workup. Post biopsy ultrasound showed no hematoma or with color Doppler active hemorrhage. Ultrasound of the left axilla showed enlarged hypoechoic masses consistent with lymph nodes. A sitefor biopsy was chosen and again marked on the skin. The region was prepped and draped and local anesthesia provided with 1% lidocaine. Under ultrasound guidance an 18-gauge coaxial needle was directed to an enlarged node. Multiple 18-gauge 2cm cores were obtained, sent in formalin and in saline. Postbiopsy ultrasound showed no hematoma or with color Doppler active hemorrhage. Medications: Fentanyl 100 mcg IV, 1% Lidocaine <10ccs subcutaneous. Est Blood Loss: 10cc. Complications: No immediate. Impression: 1. Visible superficial left antecubital mass, by ultrasound edema but no fluid component, no structures to suggest lymph nodes. 2. Ultrasound-guided biopsy with multiple 18-gauge cores sent in saline, in formalin and for infectious workup. 3. Enlarged left axillary nodes. 4. Ultrasound-guided biopsy with multiple 18-gauge cores obtained, sent in saline and formalin. Resident/Fellow: None. Attending: Dr. Dae Baires performed this procedure. documented in this encounter Plan of Treatment Upcoming Encounters Date Type Department Care Team (Late st Contact Info) Description 09/19/2023 8:00 AM EDT Infusion Hematology Oncology at [address] [address] 09/21/2023 9:30 AM EDT Office Visit Hematology [place] [address] Micha Givens Jr., MD [facility] [address] HEMATOLOGY [place] [address] 09/21/2023 10:30 AM EDT Clinical Support Hematology [place] [address] Danii Her RN 09/26/2023 8:30 AM EDT Infusion Hematology Oncology at [address] [address] 10/03/2023 9:00 AM EDT Office Visit Hematology/Oncology at [address] [address] Adrianne Ramon MD [facility] [address] HEMATOLOGY [place] [address] Yael Merlos APRN [facility] [address] HEMAT[place] [address] 10/03/2023 9:30 AM EDT Infusion Hematology Oncology at [address] [address] 10/10/2023 8:30 AM EDT Infusion Hematology Oncology at [address] [address] Pending Results Name Type Priority Associated Diagnoses Date /Time AFB culture Other Microbiology Routine 09/05 11:25 AM EDT Fungus Culture & Calc Stain Other Microbiology Routine 09/06/2023 11:2 5 AM EDT Fungus culture Microbiology Routine 09/06/19 11:25 AM EDT documented as of this encounter Procedures Procedure Name Priority Date/Time Associated Diagnosis Comments IR BIOPSY LYMPH NODE (CHEST/ABD/PELVIS) Routine 09/06/2023 12:35 PM EDT 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 Skin nodule IMMUNOPHENOTYPING FLOW CYTOMETRY Routine 09/06/2023 12:28 PM EDT FLOW CYTOMETRY REPORT Routine 09/06/2023 12:28 PM EDT IMMUNOPHENOTYPING FLOW CYTOMETRY Routine 09/06/2023 11:40 AM EDT FLOW CYTOMETRY REPORT Routine 09/06/2023 11:40 AM EDT SURGICAL PATHOLOGY REPORT Routine 2023 11:35 AM EDT HC FUNGUS CULTURE, MISC SOURCE Routine 09/06/2023 11:25 AM EDT ANAEROBIC CULTURE Routine 09/06/2023 11: 25 AM EDT HC TISSUE HOMOGENIZATION FOR CULTURE Routine 09/06/2023 11:25 AM EDT HC AFB SMEAR Routine 09/06/2023 11:25 AM EDT FUNGAL STAIN Routine 09/06/2023 11:25 AM EDT TISSUE CULTURE Routine 09/06/2023 11:25 AM EDT FUNGUS CULTURE Routine 09/06/2023 11:25 AM EDT SPECIMEN TO PATHOLOGY Routine 09/06/2023 11:20 AM EDT SPECIMEN TO PATHOLOGY Routine 09/06/2023 10:43 AM EDT CYTOPATHOLOGY NON-GYNECOLOGICAL Routine 09/06/2023 10:41 AM EDT documented in this encounter Results * IR Biopsy Lymph Node (Chest/Abdomen/Pelvis) (09/06/2023 [...] Ramon MD IMG IR ORDERABLE S * Flow Cytometry Report (09/06/2023 12:28 PM EDT) Flow Cytometry Report [id number] ? Location: [facility] The signing pathologist has (i) examined the relevant preparation(s) for the specimen(s) and (ii) rendered or confirmed the diagnosis(es). . ?Flow Cytometry DIAGNOSIS ? 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 See comment. Electronically signed by: ?Dana OCASIO, [facility] Verified: ??09/10/2023 15:05 ??Hematopathologist Performed at: ??-[facility] Dept. of Pathology, [place] [address] Bellows Assembler: Katherine Lopez MD, FCAP, ??CLIA Certificate: [id number] DISCUSSION The T-lymphocytes , B- lymphocytes and [...] by the Clinical Flow Cytometry Laboratory at [facility]. It has not been cleared [...] high complexity clinical laboratory testing. SPECIMEN PROCESSING [id number] Cells for immunophenotypic analysis were derived from [...] PM EDT Micha Pearl MD PATHOLOGY/CYTOLOGY O RDERABLES [facility] [place] [address] * Immunophenotyping Flow Cytometry (09/06/2023 12:28 PM EDT) Immunophenotyping Flow See Comment [facility] Comment: When completed by the Pathologist, the Flow Cytometry Report ([id number]) will display under the Pathology Results section within eDH. Other 09/06/2023 12:2 8 PM EDT 09/06/2023 12:47 PM EDT Narrative Resulting Agency Comment Spec In Lab Micha Pearl MD HEMATOLOGY ORDERABLE S [facility] [place] [id number] * Flow Cytometry Report (09/06/2023 11:40 AM EDT) Flow Cytometry Report [id number] ? Location: [facility] The signing pathologist has (i) examined the relevant preparation(s) for the specimen(s) and (ii) rendered or confirmed the diagnosis(es). . ?Flow Cytometry DIAGNOSIS Flow cytometric diagnosis: ?? No ??B-cell population or phenotypically abnormal T-cell population is detected. Electronically signed by: ?Dana OCASIO, [facility] Verified: ??09/07/2023 15:52 ??Hematopathologist Performed at: ??-[facility] Dept. of Pathology, [place] [address] Bellows Assembler: Katherine Lopez MD, FCAP, ??CLIA Certificate: [id number] DISCUSSION Blasts based on CD45 expression and orthogonal light scatter, are not increased. CD19 positive B-lymphocytes are too few/absent, which precludes further delineation by Ig light chains. The T-cells are an admixture of CD4+ and CD8+ T lymphocytes (ratio of 0.4). No loss or atypical intensity distributions are seen for any cage T antigen (CD2, 3, 4+8, 5, 7). There is no increase in TU32-agbvoipj/CD3-n eg NK cells. Flow analysis is an ancillary study. A definite diagnosis requires correlation with the morphologic features of this process and if necessary, correlation with other ancillary studies like immunohistochemistr y, enzyme cytochemistry and/or cyto/ molecular genetics. This test was developed and its performance characteristics determined by the Clinical Flow Cytometry Laboratory at [facility]. It has not been cleared [...] high complexity clinical laboratory testing. SPECIMEN PROCESSING [id number] Cells for immunophenotypic analysis were derived from left arm collection. CD45 vs side scatter gating was utilized to identify a lymphoid analysis region that comprises approximately 18-27% of all cells. The following markers were assessed: CD2, CD3, CD4, CD5, CD7, CD8, CD10, CD19, CD45, CD56, kappa light chain, and lambda light chain. CLINICAL INFORMATION Mass [facility] 09/06/2023 11:4 0 AM EDT James Champion DO PATHOLOGY/CYTOLOGY O RDERABLES Performing Organization Address City/[facility]/ZIP Co de Phone Number [facility] [place] [address] * Immunophenotyping Flow Cytometry (09/06/2023 11:40 AM EDT) Immunophenotyping Flow See Comment [facility] Comment: When completed by the Pathologist, the Flow Cytometry Report ([id number]) will display under the Pathology Results section within eDH. Other 09/06/2023 11:4 0 AM EDT 09/06/2023 12:11 PM EDT Narrative Resulting Agency Comment Spec In Lab James Champion DO HEMATOLOGY ORDERABLE S Performing Organization Address City/[facility]/ZIP Co de Phone Number [facility] [place] [address] * (ABNORMAL) Surgical Pathology Report (09/06/2023 11:35 AM EDT) Surgical Pathology Report [id number] ? Location: [facility] The signing pathologist has (i) examined [...] [facility] Verified: ??09/10/2023 18:38 ??Hematopathologist Performed at: ??-[facility] Dept. of Pathology, [place] [address] Bellows Assembler: Katherine Lopez MD, FCAP, ??CLIA Certificate: [id number] SYNOPTIC THIS RESULT REQUIRES PHYSICIAN/A.P.P. FOLLOW UP [...] lymphoid neoplasms . Blood . 2016. 127 (20):0492-3037. Rafael CHANDRA et al . Blood [id number] SPECIMEN(S) SUBMITTED [...] DO PATHOLOGY/CYTOLOGY O RDERABLES Performing Organization Address City/[facility] Co de Phone Number [facility] [place] [address] * Anaerobic Culture (09/06/2023 11:25 AM EDT) Anaerobic Culture No anaerobic organisms isolated [facility] Arm 09/06/2023 11:2 5 AM EDT 09/06/2023 12:21 PM EDT Comment:Left Arm Collection versus mass Narrative Resulting Agency Comment Spec In Lab James Champion DO MICROBIOLOGY - GENER AL ORDERABLES Performing Organization Address [facility] Co de Phone Number [facility] [place] [address] * Tissue culture (09/06/2023 11:25 AM EDT) Tissue Culture No growth [facility] Gram Stain Few Neutrophils seen No microorganisms seen. [facility] Arm 09/06/2023 11:2 5 AM EDT 09/06/2023 12:21 PM EDT Comment:Left Arm Collection versus mass Narrative Resulting Agency Comment Spec In Lab James Champion DO MICROBIOLOGY - GENER AL ORDERABLES Performing Organization Address City/[facility]/ZIP Co de Phone Number [facility] [place] [address] * Calcofluor White Stain (09/06/2023 11:25 AM EDT) Calcofluor Stain Calcofluor White Preparation: Negative [facility] Other 09/06/2023 11:2 5 AM EDT 09/06/2023 12:21 PM EDT Comment:Left Arm Collection versus Mass Narrative Resulting Agency Comment Spec In Lab James Champion DO MICROBIOLOGY - GENER AL ORDERABLES Performing Organization Address [facility] Co de Phone Number [facility] [place] [address] * Specimen to Pathology (09/06/2023 11:20 AM EDT) AP Specimen 09/06/2023 11:2 0 AM EDT 09/06/2023 11:20 AM EDT Narrative [facility] - 09/06/2023 11:20 AM EDT Specimen requisition ordered. ??Separate Pathology report to follow James Champion DO PATHOLOGY/CYTOLOGY O RDERABLES Performing Organization Address [facility] Co de Phone Number [facility] [place] [address] * Specimen to Pathology (09/06/2023 10:43 AM EDT) AP Specimen 09/06/2023 10:4 3 AM EDT 09/06/2023 10:43 AM EDT Narrative [facility] - 09/06/2023 10:43 AM EDT Specimen requisition ordered. ??Separate Pathology report to follow Micha Pearl MD PATHOLOGY/CYTOLOGY O COLIN Performing Organization Address City/[facility]/[place] [address] * Cytopathology Non-Gynecological (09/06/2023 10:41 AM EDT) AP Specimen 09/06/2023 10:4 1 AM EDT 09/06/2023 10:41 AM EDT Narrative [facility] - 09/06/2023 10:41 AM EDT Specimen requisition ordered. ??Separate Pathology report to follow Micha Pearl MD PATHOLOGY/CYTOLOGY O COLIN Performing Organization Address [facility] [place] [address] documented in this encounter Visit Diagnoses Diagnosis 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 Skin nodule Localized superficial swelling, mass, or lump documented in this encounter Administered Medications Inactive Administered Medications - up to 3 most recent administrations Medication Order MAR Action Action Date Dose Rate Site fentaNYL (pf) (50 mcg/mL) multi-dose injection 25-50 mcg 25-50 mcg, Intravenous, EVERY 3 MIN PRN, Starting on Jadyn 09/06/23 at 1033, Until Jadyn 09/06/23 at 1256, Pain, per unit protocol, For use in Interventional Radiology (IR) only for procedural sedation with direct provider supervision and verbal order. - Start dose: 50 mcg (reduce dose to 25 mcg if history of sedation sensitivity). - Titration dose: 25-50 mcg IV, (based on patient response) every 3 minutes PRN to maintain procedural pain less than 2 per Pain Scale. Maximum dose: 50 mcg/dose, 250 mcg/hour, Angio/IR (Intra-Procedure), Routine Given 09/06/2023 12:16 PM EDT 25 mcg Given 09/06/2023 12:01 PM EDT 25 mcg Given 09/06/2023 11:25 AM EDT 25 mcg lidocaine (Xylocaine) 1% (10 mg/mL) injection 10 mg 10 mg, Subcutaneous, ONCE, 1 dose, On Jadyn 09/06/23 at 1100, For use in Interventional Radiology (IR) only for procedure with direct provider supervision and verbal order., Angio/IR (Intra-Procedure), Routine Given 09/06/2023 11:30 AM EDT 10 mg documented in this encounter Care Teams Kitchen Stewardess Relationship Specialty Start Date End Date Frederick Meade MD [address] [place] [address] PK[address] [facility] [address] [place] [address] PCP - General Family Medicine 11/29/17 documented as of this encounter
--- OUTSIDE RECORDS SUMMARY | 2023-09-17 01:33 | XMS_ITS | Encounter Summary ---
Author Organization [facility] Address [address] [place] [address] Care Team Providers Care Facialist Name Role Phone Bobby Headley MD Primary Care Provider Encounter Details Date Type Department Care Team (Late st Contact Info) Description 03/22/2022 Lab Requisition [facility] Pathology & Laboratory Medicine - [facility] [address], [place] [id number] Outr Resulting Lab, Provider Social History Tobacco [...] Associated Diagnosis Comments PSA TOTAL, DIAGNOSTIC Routine 03/22/2022 9:35 EST documented in this encounter Results * PSA TOTAL, DIAGNOSTIC (03/22/2022 9:35 EST) PSA <0.1 <=6.5 ng/mL 03/22/2022 23:03 EST [facility] Blood VENOUS BLOOD / Unknown 03/22/2022 9:35 EST 03/22/2022 21:50 EST Narrative [facility] - 03/22/2022 23:03 EST NOTE: Serum PSA concentration should not be interpreted as absolute evidence for the presence or absence of malignant disease. Assayed on Siemens ADVIA Signal Patternsaur XPT using chemiluminescent technology.??Values obtained by using different assay methods cannot be used interchangeably. Provider Outr Resulting Lab CHEMISTRY & BLOOD GAS ORDERABLES [facility] [address] [place] [address] documented in this encounter Visit Diagnoses Not on filedocumented in this encounter Care Teams Facialist Relationship Specialty Start Date End Date Bobby Headley MD [address] [place] [id number] PCP - General 01/18/12 documented as of this encounter
--- OUTSIDE RECORDS SUMMARY | 2023-09-17 01:33 | XMS_ITS | Encounter Summary ---
[place] [address] Care Team Providers Care Mainspring Former Brace End Name Role Phone Frederick Meade MD Primary Care Provider [phone] Encounter Details Date Type Department Care Team (Late st Contact Info) Description 06/22/2023 Orders Only Hematology [place] [phone] Deidre Silverio Social History Tobacco Use Types Packs/Day Years [...] place to sleep or slept in a correction (including now)? No 10/11/2022 Sex and Gender Information Value Date Recorded Sex Assigned at Not on file Gender Identity Not on file Sexual Orientation Not on file documented as of this encounter Plan of Treatment Upcoming Encounters Date Type Department Care Team (Late st Contact Info) Description 09/19/2023 8:00 AM EDT Infusion Hematology Oncology at [address] [phone] 09/21/2023 9:30 AM EDT Office Visit Hematology [place] [address] Micha Givens Jr., MD [facility] [place] [address] 09/21/2023 10:30 AM EDT Clinical Support Hematology [place] [address] Danii Her RN 09/26/2023 8:30 AM EDT Infusion Hematology Oncology at [address] [phone] 10/03/2023 9:00 AM EDT Office Visit Hematology/Oncology at [address] [phone] Adrianne Ramon MD [facility] [place] [address] Yael Merlos, CRISIS COUNSELOR [facility] [place] [address] 10/03/2023 9:30 AM EDT Infusion Hematology Oncology at [address] [phone] 10/10/2023 8:30 AM EDT Infusion Hematology Oncology at [address] [phone] documented as of this encounter Visit Diagnoses Not on filedocumented in this encounter Care Teams Mainspring Former Brace End Relationship Specialty Start Date End Date Frederick Meade MD [address] [place] [address] PCP - General Family Medicine 11/29/17 documented as of this encounter
--- OUTSIDE RECORDS SUMMARY | 2023-09-17 01:33 | XMS_ITS | Encounter Summary ---
Author Organization [facility] [place] [address] Care Team Providers Care Oil Prospecting Observer Name Role Phone Frederick Meade MD Primary Care Provider [phone] Encounter Details Date Type Department Care Team (Latest Contact Info) Description 09/06/2023 9:48 AM EDT - 09/06/2023 10:14 AM EDT Hospital Encounter [place]ematology [place] [address] 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 [...] place to sleep or slept in a halfway (including now)? No 10/11/2022 Sex and Gender Information Value Date Recorded Sex Assigned at Not on file Gender Identity Not on file Sexual Orientation Not on file documented as of this encounter Medications at Time of Discharge [...] mouth daily. documented as of this encounter Plan of Treatment Upcoming Encounters Date Type Department Care Team (Late st Contact Info) Description 09/19/2023 8:00 AM EDT Infusion Hematology Oncology at [address] [phone] 09/21/2023 9:30 AM EDT Office Visit [place] [address] Micha Givens Jr., MD [facility] DR [place] [address] 09/21/2023 10:30 AM EDT Clinical Support [place] [address] Danii Her RN 09/26/2023 8:30 AM EDT Infusion Hematology Oncology at [address] [phone] 10/03/2023 9:00 AM EDT Office Visit Hematology/Oncology at [address] [phone] Adrianne Ramon MD [facility] DR [place] [address] Yael Merlos APRN [facility] DR [place] [address] 10/03/2023 9:30 AM EDT Infusion Hematology Oncology at [address] [phone] 10/10/2023 8:30 AM EDT Infusion Hematology Oncology at [address] [phone] documented as of this encounter Procedures Procedure Name Priority Date/Time Associated Diagnosis Comments HEMOGRAM STAT 09/06/2023 10:12 AM EDT 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 Skin nodule DIFFERENTIAL, AUTOMATED STAT 09/06/2023 10:12 AM EDT 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 Skin nodule HC VENIPUNCTURE STAT 09/06/2023 10:12 AM EDT 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 Skin nodule HC CBC,PLT & AUTO DIFF STAT 10:12 AM EDT 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 Skin nodule HC LACTIC DEHYDROGENASE STAT 09/06/2023 10:12 AM EDT 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 Skin nodule COMPREHENSIVE METABOLIC PANEL (NON-FASTING) STAT 09/06/2023 10:12 AM EDT 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 Skin nodule documented in this encounter Results * (ABNORMAL) Differential, Automated (09/06/2023 10:12 AM EDT) Neutrophils % 64.9 % [facility] Neutr Abs (ANC) 4.20 1.70 - 6.10 x10(3)/[facility] Lymphocytes % 14.1 % [facility] Lymphocytes Abs 0.9 0.9 - 3.2 x10(3)/[facility] Monocytes % 16.7 % [facility] Monocyte Abs 1.1(H) 0.3 - 0.9 x10(3)/[facility] Eosinophils % 3.7 % [facility] Eosinophils Abs 0.2 0.0 - 0.4 x10(3)/[facility] Basophils % 0.3 % [facility] Basophils Abs 0.0 0.0 - 0.1 x10(3)/[facility] Immature Gran % 0.30 % [facility] Comment: Immature granulocytes(IG's)percentage and absolute count will include metamyelocytes, myelocytes, and promyelocytes. Blood smears from CBCs yielding IG's will be scanned manually for concordance. If this scan disagrees with the automated IG or if promyelocytes are noted, a manual differential will be performed. Nellie Gran Abs 0.02 0.00 - 0.04 x10(3)/ L [facility] Blood 09/06/2023 10:1 2 AM EDT 09/06/2023 10:16 AM EDT Narrative Resulting Agency Comment Spec In Lab Adrianne Ramon MD HEMATOLOGY ORDER DUONG [facility] [place] [address] * (ABNORMAL) Hemogram (09/06/2023 10:12 AM EDT) WBC 6.5 4.0 - 9.5 x10(3)/[facility] RBC 3.98(L) 4.58 - 5.54 x10(6)/[facility] Hemoglobin 12.0(L) 13.7 - 16.5 g/dL [facility] Hematocrit 36.5(L) 40.5 - 48.5 % [facility] MCV 91.7 82.9 - 93.1 [facility] MCH 30.2 27.5 - 32.1 pg [facility] MCHC 32.9 32.0 - 35.7 g/dL [facility] Platelets 145 145 - 357 x10(3)/[facility] RDWSD 48.4(H) 36.0 - 45.0 [facility] RDWCV 14.4(H) 11.4 - 13.8 % [facility] MPV 10.3 7.6 - 12.9 [facility] nRBC % Auto 0.0 % [facility] nRBC Abs Auto 0.000 0.000 - 0.000 x10(3)/[facility] Blood 09/06/2023 10:1 2 AM EDT 09/06/2023 10:16 AM EDT Narrative Resulting Agency Comment Spec In Lab Adrianne Ramon MD HEMATOLOGY ORDER DUONG [facility] [place] [address] * (ABNORMAL) Lactate Dehydrogenase (09/06/2023 10:12 AM EDT) Pathologist [facility] LDH 251(H) 110 - 220 unit/L [facility] Blood 09/06/2023 10:1 2 AM EDT 09/06/2023 10:16 AM EDT Narrative Resulting Agency Comment Spec In Lab Adrianne Ramon MD CHEMISTRY ORDERA BLES [facility] [place] [address] * (ABNORMAL) Comprehensive metabolic panel (non-fasting) (09/06/2023 10:12 AM EDT) [facility] Glucose Lvl 170 65 - 199 mg/dL [facility] Comment:Diabetes: >=200 mg/d L plus symptoms BUN 15 10 - 20 mg/dL [facility] Creatinine 1.07 0.80 - 1.50 mg/dL [facility] Sodium 143 135 - 145 mmol/L [facility] Potassium 3.8 3.5 - 5.0 mmol/L [facility] Comment: Please note: ??Patients with WBC >100,000 may have falsely elevated Potassium levels. ??For accurate Potassium quantification in these patients send serum separator tube (gold top) for subsequent determinations. ??Contact the Clinical Chemistry Laboratory if there are any questions. Chloride 107 98 - 107 mmol/L [facility] CO2 25 22 - 31 mmol/L [facility] Anion Gap 11 5 - 15 mmol/L [facility] Calcium 9.2 8.5 - 10.5 mg/dL [facility] Total Protein 6.1 6.1 - 8.0 g/dL [facility] Albumin 3.7 3.2 - 5.2 g/dL [facility] AST 37 0 - 39 unit/L [facility] ALT 61(H) 0 - 55 unit/L [facility] Alk Phos 151(H) 40 - 130 unit/L [facility] Total Bilirubin 0.3 0.2 - 1.3 mg/dL [facility] Estimated GFR 72 >=60 mL/min/1. 73 m?? [facility] Comment: This patient's estimated GFR [...] MD CHEMISTRY ORDERA BLES Performing Organization Address City/[facility]/ZIP Co de Phone Number [facility] [place] [address] * Blood culture (09/06/2023 10:12 AM EDT) Blood Culture No growth at 5 days. [facility] Blood ANTECUBITAL REGION STRUCTURE / Unknown 09/06/2023 10:12 AM EDT 09/06/2023 10:31 AM EDT Comment:Peripheral culture Narrative Resulting Agency Comment Spec In Lab Adrianne Ramon MD MICROBIOLOGY - B LOOD ORDERABLES [facility] [place] [address] documented in this encounter Visit Diagnoses Diagnosis 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 Skin nodule Localized superficial swelling, mass, or lump documented in this encounter Care Teams Oil Prospecting Observer Relationship Specialty Start Date End Date Frederick Meade MD [address] [place] [address] PCP - General Family Medicine 11/29/17 documented as of this encounter
--- OUTSIDE RECORDS SUMMARY | 2023-09-17 01:33 | XMS_ITS | Encounter Summary ---
[facility] [place] [address] Care Team Providers Care Home Health Clinician Name Role Phone Frederick Meade MD Primary Care Provider [phone] Encounter Details Date Type Department Care Team (Late st Contact Info) Description 09/14/2023 Telephone Hematology/Oncology at [address] [phone] Brenda Priest, RN Social History Tobacco Use Types Packs/Day Years [...] encounter Miscellaneous Notes * Telephone Encounter - Brenda Priest RN - 09/14/2023 3:11 PM EDT Received call from Donita Jimenez At [facility] ([phone]) stating that they received the application for patient financial assistance for Revlimid. States that there is a Revlimid prescription claim in [facility] which is showing that the patient has met his OOP max. She suggests that we call [facility] and ask that they reverse the claim because patient hasn't received drug. This willallow them to see what his co-pay will be so that they can determine eligibility for financial assistance and free drug. RN call to [facility] spoke with [employer] who states that the claim was reversed on their end on 09/11 at 5pm. Suggests that I call his insurance to discuss and ask them to reverse the claim. Call to [employer] insurance ([phone]) spoke with someone who transferred me to [email or web address] with Marcos at [email or web address], pharmacy services for claim reversal. Also states that the claim was reversed by [facility] on 09/11, no claim in process at this time. Call to [employer] support, spoke with Donita Jimenez - states that this patient is qualified for a toi.They need to apply for this open toi to try before being able to get free drug. [employer] - [phone] or [email or web address] - can apply by phone or website. documented in this encounter Plan of Treatment Upcoming Encounters Date Type Department Care Team (Late st Contact Info) Description 09/19/2023 8:00 AM EDT Infusion Hematology Oncology at [address] [phone] 09/21/2023 9:30 AM EDT Office Visit Hematology [place] [address] Micha Givens Jr., MD [facility] DR HEMATOLOGY [place] [address] 09/21/2023 10:30 AM EDT Clinical Support Hematology [place] [address] Danii Her RN 09/26/2023 8:30 AM EDT Infusion Hematology Oncology at [address] [phone] 10/03/2023 9:00 AM EDT Office Visit Hematology/Oncology at [address] [phone] Adrianne Ramon MD [facility] DR HEMATOLOGY [place] [address] Yael Merlos, KIER DRIER [facility] DR HEMATOLOGY [place] [address] 10/03/2023 9:30 AM EDT Infusion Hematology Oncology at [address] [phone] 10/10/2023 8:30 AM EDT Infusion Hematology Oncology at [address] [phone] documented as of this encounter Visit Diagnoses Not on filedocumented in this encounter Care Teams Home Health Clinician Relationship Specialty Start Date End Date Frederick Meade MD [address] [place] [address] [address] [place] [address] PCP - General Family Medicine 11/29/17 documented as of this encounter
--- OUTSIDE RECORDS SUMMARY | 2023-09-17 01:33 | XMS_ITS | Encounter Summary ---
Author Organization [facility] [place] [address] Care Team Providers Care Information Assurance Name Role Phone Frederick Meade MD Primary Care Provider [phone] Encounter Details Date Type Department Care Team (Latest Contact Info) Description 09/06/2023 Travel Social History Tobacco Use Types Packs/Day [...] 8:00 AM EDT Infusion Hematology Oncology at [address] [phone] 09/21/2023 9:30 AM EDT Office Visit Hematology [place] [address] Micha Givens Jr., MD [facility] [place] [address] 09/21/2023 10:30 AM EDT Clinical Support Hematology [place] [address] Danii Her RN 09/26/2023 8:30 AM EDT Infusion Hematology Oncology at [address] [phone] 10/03/2023 9:00 AM EDT Office Visit Hematology/Oncology at [address] [phone] Adrianne Ramon MD [facility] [place] [address] Yael Merlos APRN [facility] [place] [address] 10/03/2023 9:30 AM EDT Infusion Hematology Oncology at [address] [phone] 10/10/2023 8:30 AM EDT Infusion Hematology Oncology at [address] [phone] documented as of this encounter Visit Diagnoses Not on filedocumented in this encounter Care Teams Information Assurance Relationship Specialty Start Date End Date Frederick Meade MD [address] [place] [address] PCP - General Family Medicine 11/29/17 documented as of this encounter
--- OUTSIDE RECORDS SUMMARY | 2023-09-17 01:33 | XMS_ITS | Encounter Summary ---
Author Organization [facility] Address [address] [place] [address] Care Team Providers Care Tester Wafer Substrate Name Role Phone Bobby Headley MD Primary Care Provider [phone] Encounter Details Date Type Department Care Team (Late st Contact Info) Description 03/05/2020 Lab Requisition [facility] Pathology & Laboratory Medicine - [address] [phone] Outr Resulting Lab, Provider Social History Tobacco [...] Associated Diagnosis Comments PSA TOTAL, DIAGNOSTIC Routine 03/05/2020 7:50 EST documented in this encounter Results * PSA TOTAL, DIAGNOSTIC (03/05/2020 7:50 EST) PSA <0.1 0.0 - 6.5 ng/mL 03/06/2020 0:[address] [facility] Blood VENOUS BLOOD / Unknown 03/05/2020 7:50 EST 03/05/2020 17:[address] [facility] - 03/06/2020 0:00 EST NOTE: Serum PSA concentration should not be interpreted as absolute evidence for the presence or absence of malignant disease. Assayed on Siemens ADVIA SOLOaur XPT using chemiluminescent technology.??Values obtained by using different assay methods cannot be used interchangeably. Provider Outr Resulting Lab CHEMISTRY & BLOOD GAS ORDERABLES [facility] [address] [place] [address] documented in this encounter Visit Diagnoses Not on filedocumented in this encounter Care Teams Tester Wafer Substrate Relationship Specialty Start Date End Date Bobby Headley MD [address] [place] [phone] PCP - General 01/18/12 documented as of this encounter
--- OUTSIDE RECORDS SUMMARY | 2023-09-17 01:33 | XMS_ITS | Encounter Summary ---
[place] [address] Care Team Providers Care Mechanical Manufacturing Technician Name Role Phone Frederick Meade MD Primary Care Provider [phone] Reason for Referral * Diagnostic Test (Routine) - Authorized Specialty Diagnoses / Procedures Referred By Contac t Referred To Contact Cardiology Diagnoses 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 High risk medication use Procedures Echocardiogram Transthoracic Adrianne Ramon MD [facility] [address] [place] [address] Referral ID Status Reason Start Date Expiration Date Visits Requested Visits Authorized [id number] Authorized Specialty Service Requested 09/12/2023 03/10/2024 1 1 * Consultation (Routine) - Authorized Specialty Diagnoses / Procedures Referred By Contac t Referred To Contact Hematology and Oncology Diagnoses 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 Adrianne Ramon MD [facility] [address] [place] [address] [facility] [address] [place] [address] Referral ID Status Reason Start Date Expiration Date Visits Requested Visits Authorized [id number] Authorized Specialty Service Requested 09/12/2023 09/11/2024 1 1 Encounter Details Date Type Department Care Team (Late st Contact Info) Description 09/12/2023 10:15 AM EDT Office Visit Hematology/Oncology at [address] [phone] Adrianne Ramon MD [facility] [place] [address] Yael Merlos, STOREROOM CLERK [facility] [place] [address] 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; High risk medication use Social History Tobacco Use Types Packs/Day Years [...] place to sleep or slept in a mcfp (including now)? No 10/11/2022 Sex and Gender [...] Mass Index 32.39 09/12/2023 9:52 AM EDT documented in this encounter Progress Notes * Adrianne Ramon MD - 09/12/2023 10:30 AM EDT Images from the original note were not included. Hematology Clinic [facility] [place] [address] HEMATOLOGY PATIENT EVALUATION PROBLEM LIST: Patient Active Problem List Diagnosis Abnormal echocardiogram 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 Anemia, iron deficiency Gout Malignant neoplasm of prostate HISTORY OF PRESENT ILLNESS: Patient prefers to be called: Cheo Support person(s) : Claritza son Cheo rosa daughter - Sarath It was my pleasure to meet Cheo [...] to consultation, he saw [facility] and when to [facility]. No beds so sent to [facility] for [address] CAP, MRI, [...] x7 days with nice response. Pathology from [facility] reports large B-cell lymphoma. Double expresser. FISH for translocations are pending. Tongue swelling. No wt loss. Eating and drinking OK. No fevers, infections, No NS. Pain in neck. Prednisone 60mg daily X 7 days. I feel great on prednisone last day of prednisone is today. Took iron supplements per PCP - unclear cause. - last COLO at [facility] was 01/17/2012. INTERIM HISTORY OF PRESENT ILLNESS: [...] was concerned it may be relapsed lymphoma. We saw him urgently in clinic about 3 weeks ago. Since then he hashad a PET scan and biopsy confirming primary refractory diffuse large B-cell lymphoma, nongerminal center subtype. Today Cheo and his family report no change in sx but worsening lesions. 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 6 mos of adjuvant Lupron. Total dose 79.2 Gy completed 01/26/15 09/29/22 Large B Cell lymphoma - biopsy of tongue and needle of cervical LN. FISH from [facility] No MYCrearrangement and no fusion of MYC [...] CTX dose to 100% 03/06/23 PET negative. 09/06/23 PET positive and biopsy + for DLBCL ABC subtype. Plans for R2 then CAR-T cell therapy PMHX: Pre- DM type II ~ 15 [...] Mouth sores: No Dentition: Good Swallowing: Normal - no dysphagia, odynophagia GERD: No Nausea/vomiting: No diarrhea/constipation: No, bowel [...] only 1 biologic. Son Cheo Freire. Enjoys [employer], [employer], [employer] car, [employer]. A Green Night's Sleep. 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 Not a . ETOH: 1-3 beers per week Smoking: Quit 1985. Approximately [id number] history Vaping or electronic cigarettes: denies Chewing tobacco: denies Marijuana or other recreational drug use: none HIPPA Contact Permission: John. Also OK to talk to Delia adult children. OK to leave message with medical information on home or cell phone: home phone PHYSICAL EXAM There were no vitals taken for this visit. GENERAL: Cheo Freire is a delightful 73-year old male in [facility]. He is accompanied to the clinic by his today. ENT: Oropharynx clear. Slight asymmetric smile and tongue deviates slightly to left [unchanged] andR tonsilar mass new from last exam EYES: ELSI NECK: Supple without palpable masses appreciated on exam AXILLARY: 2.5 cm lymph node high in the left axilla. -Unchanged from [address]: no adenopathy; nonpalpable today OTHER LYMPH: Unable to appreciate right anterior thigh mass. Bilateral epitrochlear masses each about 2-1/2 cm, right slightly larger than left CARDIAC: Regular rate and rhythm without S3,S4 [...] lymph node listed above. SKIN: see Photo -left antecubital mass is now 3.5 x 5.5 cm increased from prior NEUROLOGICAL: Alert and oriented to person, place and time. MUSCULOSKELETAL: No spinal or chest wall tenderness. 09/12/2023 left antecubital LABORATORY STUDIES No results found for this or any previous visit (from the past 72 hour(s)). Latest Reference Range & Units 09/06/23 10:12 WBC 4.0 - 9.5 x10(3)/mcL 6.5 RBC 4.58 - 5.54 x10(6)/mcL 3.98 (L) Hemoglobin 13.7 - 16.5 g/dL 12.0 (L) Hematocrit 40.5 - 48.5 % 36.5 (L) MCV 82.9 - 93.1 fL 91.7 MCH 27.5 - 32.1 pg 30.2 MCHC 32.0 - 35.7 g/dL 32.9 RDWSD 36.0 - 45.0 fL 48.4 (H) RDWCV 11.4 - 13.8 % 14.4 (H) Platelets 145 - 357 x10(3)/mcL 145 MPV 7.6 - 12.9 fL 10.3 nRBC % Auto % 0.0 nRBC Abs Auto 0.000 - 0.000 x10(3)/mcL 0.000 Neutr Abs (ANC) 1.70 - 6.10 x10(3)/mcL 4.20 Neutrophils % % 64.9 Immature Gran % % 0.30 Lymphocytes % % 14.1 Monocytes % % 16.7 Eosinophils % % 3.7 Basophils % % 0.3 Nellie Gran Abs 0.00 - 0.04 x10(3)/mcL 0.02 Lymphocytes Abs 0.9 - 3.2 x10(3)/mcL 0.9 Monocyte Abs 0.3 - 0.9 x10(3)/mcL 1.1 (H) Eosinophils Abs 0.0 - 0.4 x10(3)/mcL 0.2 Basophils Abs 0.0 - 0.1 x10(3)/mcL 0.0 Sodium 135 - 145 mmol/L 143 Potassium 3.5 - 5.0 mmol/L 3.8 Chloride 98 - 107 mmol/L 107 CO2 22 - 31 mmol/L 25 Anion Gap 5 - 15 mmol/L 11 BUN 10 - 20 mg/dL 15 Creatinine 0.80 - 1.50 mg/dL 1.07 Estimated GFR >=60 mL/min/1.73 m?? 72 Calcium 8.5 - 10.5 mg/dL 9.2 Glucose Lvl 65 - 199 mg/dL 170 Total Protein 6.1 - 8.0 g/dL 6.1 Albumin 3.2 - 5.2 g/dL 3.7 Total Bilirubin 0.2 - 1.3 mg/dL 0.3 Alk Phos 40 - 130 unit/L 151 (H) AST 0 - 39 unit/L 37 ALT 0 - 55 unit/L 61 (H) LDH 110 - 220 unit/L 251 (H) BLOOD CULTURE Rpt PATHOLOGY: 09/06/23 DIAGNOSIS A - Left antecubital mass, biopsy Diagnosis : Atypical lymphoid proliferation c/w D iffuse large B-cell lymphoma- NOS. B - Left axillary lymph node, biopsy Diagnosis : D iffuse large B-cell lymphoma- NOS. positive for CD20, BCl2(>50%), cMYC(>40%), MUm1, Bcl6 and negative for the rest of the markers they were tested for .Ki67 is at 80%. ABC subtype. CD10 neg 10/11/22 Final Diagnosis A. Tongue base, left: -Large B-cell lymphoma, incompletely classified. See comment. Diagnosis Comment The findings are those of a large B-cell lymphoma that exhibits a non-germinal center immunophenotype and expresses Myc and BCL-2 protein (Double Expressor.) Flow cytometry ([id number]) supports this interpretation. FISH from [facility] No MYC rearrangement and no fusion of MYC and IGH was observed, CD3 (SP7, Thermo Scientific) Background T-cells CD20 (L26, Donora) diffusely positive in Neoplastic B-cells PAX-5 (1EW, Leica) diffusely positive in Neoplastic B-cells CD10 (SP67, Donora) Negative BCL-6 (G/191E/A8, Donora) Positive MUM-1 (MUM1p, Dako) Positive Myc (Y69, Abcam) Positive BCL-2 Oncoprotein (124, Donora) Positive Ki67 (MIB-1) (K2, Leica) Greater than 95% of cells in cycle Cyclin D1(SP4-R, Donora) Negative SAPPHIRE JOSE ([id number], Leica) Negative. DIAGNOSTICS: 01/25/23 ECHO after C#5 [...] comparison study is available. RADIOLOGY STUDIES REVIEWED: 09/06/23 PET at recurrence SUV MEASUREMENTS: * Left antecubital fossa 3.4 cm lymph node: Image 184, SUV max 16 * Right axillary lymph nodes: Image 112, SUV max 10 * Pharyngeal wall lesion: Image 74, SUV max 27 IMPRESSION Recurrent active lymphoma in sarahi regions of the neck, chest, abdomen, pelvis,pharynx, spleen, andsoft tissues of the upper and lower extremities (Deauville 5). 08/22/2023 left upper extremity ultrasound performed at [facility] Notable findings: In the left antecubital fossa [...] undergo investigation with ultrasound. CT CAP at [facility], report and images have been requested. ASSESSMENT/PLAN: [...] #6 without excessive toxicity. Patient is seen today after seen urgently about 3 weeks ago with concerns for relapsed diffuse large B-cell lymphoma. The patient returns today after labs, PET scan, and biopsies biopsies. Results confirm primary refractory diffuse large B-cell lymphoma. The subtype is ABC/non-germinal center. He has a good chance for a response to Revlimid and rituximab. Once trial added ibrutinib to R2. This could be updated to a more selective BTKi, such as acalabrutinib. We also discussed CAR-T cell therapywhich requires at least 1 month spent locally at [facility] and local hospital. Unfortunately, because ofhis age, he is not a candidate for autologous stem cell transplant. Bi specific antibodies would also be an option for him in the future. I would recommend starting with R2 or R2 + BTKi as that has the lowest side effect profile with a high response rate. We discussed CAR-T cell therapy, the pathologic concepts, and the time it entails at [facility]. This would be a significant commitment for the patient and his family as they live [place] hours away from [facility]. They feel comfortable that they have the resources to move ahead with CAR-T cell therapy. In the meantime we need to bridge him. I would recommend R2. Revlimid has been studied in several small trials with diffuse large B-cell lymphoma, ABC subtype. One combines Revlimid with R-CHOP chemotherapy using Revlimid for the 14 days of each cycle. This urbano small trial but suggested that Revlimid may overcome the poor prognostic impact of ABC subtype. [Blood 2016 128:3035 Sue] There is also an XAVIER 2016 abstract #474 which is a nonrandomized trial using Revlimid maintenance in chemosensitive primary refractory/relapsed diffuse large B-cell lymphoma patients who are not eligible for transplant. This was a small trial in high risk patients and at 2 years, 26 of the 28 patients were alive and relapse free. Finally JCO September 19, 2016, Robb Hernandez et al, randomized lenalidomide maintenance versus placebo in elderly patients with diffuse large B-cell lymphoma status post R CHOP,. At a median of 39 months of follow-up, PFS had not been reached in the lenalidomide arm, but was 58.9 months in the placebo arm. Overall survival at the time of evaluation was unchanged. In this trial, cell of origin didnot impact the progression free survival. Based on these trials, the fact that Salazar has ABC subtype, and presented with extremely aggressive presentation. I would recommend Revlimid 20 mg p.o. daily x 21 days on and 7 days off with a 28-day cycle. Combined with rituximab. Rituximab is 4 weeks in a row followed by monthly. We discussed lenalidomiderevlamid in detail We discussed revlamid and how it is applied for and distributed from the pharmaceutical company. Side effects he might experience were explained to her and include fatigue, edema, dizziness, headache, pruritis, rash, GI upset including diarrhea, constipation, nausea, vomiting, myelosuppression, neut ropenic fever, infection, liver toxicity, neuropathy. Increased risk of DVT on lenalidomide and we discussed the need for full ASA 325mg daily prophylaxis. Recently there has a report of increase in arterial thrombosis (CVA/WI) as well. This risk is very small. Risk of defects and therefore the pt was told that he must keep this medication away from any children or women of childbearing age. Blood counts will be followed closely and dose adjustments will be made as necessary. Cardiac -Cheo has no cardiac history. No [...] LVEF at 50-55%. --asymptomatic --repeat echo at [facility] 1 year post completion of therapy [due [...] an active problem at this time Plan: Follow up on FISH/CG and NGS from 09/06/23 biopsy Repeat ECHO when at [facility] for CAR-T cell discussion Referral to CAR-T cell program Given c-diff, will need to consider vanco prophy if requires ATB in next 6 - 12 mos Revlimid discussed today. Will request from his insurance company 20 mg daily x 21 days on and 7 days off. 28-day cycle start in conjunction with rituximab Plan rituximab weekly x 4 then monthly open to start on Prednisone 100 mg p.o. daily x 4 days to control disease until the start of R2. Start 09/13/23 I discussed all of the above with the patient and all of his questions were answered. Support and counseling as appropriate. Copy Frederick Meade MD documented in this encounter Plan of Treatment Upcoming Encounters Date Type Department Care Team (Late st Contact Info) Description 09/19/2023 8:00 AM EDT Infusion Hematology Oncology at [address] [phone] 09/21/2023 9:30 AM EDT Office Visit [place]ematology [place] [address] Micha Givens Jr., MD [facility] DR [place]AT[place] [address] 09/21/2023 10:30 AM EDT Clinical Support [place]ematology [place] [address] Danii Her RN 09/26/2023 8:30 AM EDT Infusion Hematology Oncology at [address] [phone] 10/03/2023 9:00 AM EDT Office Visit Hematology/Oncology at [address] [phone] Adrianne Ramon MD [facility] DR [place]AT[place] [address] Yael Merlos APRN [facility] [place] [address] 10/03/2023 9:30 AM EDT Infusion Hematology Oncology at [address] [phone] 10/10/2023 8:30 AM EDT Infusion Hematology Oncology at [address] [phone] Scheduled Orders Name Type Priority Associated Diagnoses Order Schedule Echocardiogram Transthoracic Echocardiography Routine 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 High risk medication use Expected: 10/13/2023, Expires: 04/13/2024 Scheduled Referrals Name Type Priority Associated Diagnoses Order Schedule Referral to Bone Marrow Transplant Team Outpatient Referral Routine 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 Ordered: 09/12/2023 documented as of this encounter Visit Diagnoses Diagnosis 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 High risk medication use Encounter for long-term (current) use of other medications documented in this encounter Care Teams Mechanical Manufacturing Technician Relationship Specialty Start Date End Date Frederick Meade MD [address] [place] [address] [address] [place] [address] PCP - General Family Medicine 11/29/17 documented as of this encounter
--- OUTSIDE RECORDS SUMMARY | 2023-09-17 01:33 | XMS_ITS | Encounter Summary ---
Author Organization [place] [address] Care Team Providers Care Elevated Motorman Name Role Phone Frederick Meade MD Primary Care Provider [phone] Encounter Details Date Type Department Care Team (Latest Contact Info) Description 09/12/2023 Travel Social History Tobacco Use Types Packs/Day [...] place to sleep or slept in a custodial (including now)? No 10/11/2022 Sex and Gender Information Value Date Recorded Sex Assigned at Not on file Gender Identity Not on file Sexual Orientation Not on file documented as of this encounter Plan of Treatment Upcoming Encounters Date Type Department Care Team (Late st Contact Info) Description 09/19/2023 8:00 AM EDT Infusion Hematology Oncology at [address] [phone] 09/21/2023 9:30 AM EDT Office Visit Hematology [place] [address] Micha Givens Jr., MD [facility] [place]ATOLOGY [place] [address] 09/21/2023 10:30 AM EDT Clinical Support Hematology [place] [address] Danii Her RN 09/26/2023 8:30 AM EDT Infusion Hematology Oncology at [address] [phone] 10/03/2023 9:00 AM EDT Office Visit Hematology/Oncology at [address] [phone] Adrianne Ramon MD [facility] HEMATOLOGY [place] [address] Yael Merlos APRN [facility] [place] [address] 10/03/2023 9:30 AM EDT Infusion Hematology Oncology at [address] [phone] 10/10/2023 8:30 AM EDT Infusion Hematology Oncology at [address] [phone] documented as of this encounter Visit Diagnoses Not on filedocumented in this encounter Care Teams Elevated Motorman Relationship Specialty Start Date End Date Frederick Meade MD [address] [place] [address] PCP - General Family Medicine 11/29/17 documented as of this encounter
--- OUTSIDE RECORDS SUMMARY | 2023-09-17 01:33 | XMS_ITS | Encounter Summary ---
Author Organization [facility] Address [address] [place] [address] Care Team Providers Care Mold Filler And Drainer Name Role Phone Bobby Headley MD Primary Care Provider [phone] Encounter Details Date Type Department Care Team (Late st Contact Info) Description 10/06/2022 Lab Requisition [facility] Pathology & Laboratory Medicine - [address] [phone] Outr Resulting Lab, Provider Social History Tobacco [...] filedocumented in this encounter Care Teams Mold Filler And Drainer Relationship Specialty Start Date End Date Bobby Headley MD [address] [place] [address] PCP - General 01/18/12 documented as of this encounter
--- OUTSIDE RECORDS SUMMARY | 2023-09-17 01:33 | XMS_ITS | Encounter Summary ---
Author Organization [facility] [place] [address] Care Team Providers Care Production Line Solderer Name Role Phone Frederick Meade MD Primary Care Provider [phone] Reason for Visit * Diagnostic Test (Routine) - Closed Specialty Diagnoses / Procedures Referred By Contac t Referred To Contact Radiology Diagnoses 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 Skin nodule Procedures NM PET CT Standard Plus Extremities and Head Adrianne Ramon MD [facility] [place] [address] [place] [address] Referral ID Status Reason Start Date Expiration Date V isits Requested Visits Authorized [id number] Closed Specialty Service Requested 08/22/2023 02/21/2025 1 1 Encounter Details Date Type Department Care Team (Late st Contact Info) Description 09/06/2023 1:00 PM EDT - 09/06/2023 11:59 PM EDT Hospital Encounter [place] [address] Adrianne Ramon MD [facility] [address] [place] [address] Discharge Disposition: Home Social History Tobacco Use [...] place to sleep or slept in a longterm (including now)? No 10/11/2022 Sex and Gender [...] AM EDT Infusion Hematology Oncology at [address] [phone] 09/21/2023 9:30 AM EDT Office Visit Hematology [place] [address] Micha Givens Jr., MD [facility] [place] [address] 09/21/2023 10:30 AM EDT Clinical Support Hematology [place] [address] Danii Her, RN 09/26/2023 8:30 AM EDT Infusion Hematology Oncology at [address] [phone] 10/03/2023 9:00 AM EDT Office Visit Hematology/Oncology at [address] [phone] Adrianne Ramon MD [facility] [place] [address] Yael Merlos, BRAZING MACHINE OPERATOR AUTOMATIC [facility] [place] [address] 10/03/2023 9:30 AM EDT Infusion Hematology Oncology at [address] [phone] 10/10/2023 8:30 AM EDT Infusion Hematology Oncology at [address] [phone] documented as of this encounter Procedures Procedure Name Priority Date/Time Associated Diagnosis Comments NM PET CT STANDARD PLUS EXTREMITIES AND HEAD Routine 09/06/2023 2:45 PM EDT 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 Skin nodule POCT GLUCOSE Routine 09/06/2023 1:06 PM EDT POCT GLUCOSE Routine 09/06/2023 10:41 AM EDT documented in this encounter Results * POCT Glucose (09/06/2023 1:06 PM EDT) POC Glucose 98 65 - 199 mg/dL [facility] Comment: Supplemental ranges: <140 mg/dL before meals <180 mg/dL all other times of the day Blood 09/06/2023 1:06 PM EDT 09/06/2023 1:06 PM EDT Adrianne Ramon MD POINT OF CARE TE ST ORDERABLES Performing Organization Address City/[facility]/ZIP Co de Phone Number [facility] [place] [address] * POCT Glucose (09/06/2023 10:41 AM EDT) POC Glucose 142 65 - 199 mg/dL [facility] Comment: Supplemental ranges: <140 mg/dL before meals <180 mg/dL all other times of the day Blood 09/06/2023 10:4 1 AM EDT 09/06/2023 10:41 AM EDT Adrianne Ramon MD POINT OF CARE [place] [address] documented in this encounter Visit Diagnoses Not on filedocumented in this encounter Care Teams Production Line Solderer Relationship Specialty Start Date End Date Frederick Meade MD [address] [place] [address] PCP - General Family Medicine 11/29/17 documented as of this encounter
--- OUTSIDE RECORDS SUMMARY | 2023-09-17 01:33 | XMS_ITS ---
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 10/10/2022 Anemia, iron deficiency 08/21/2018 Gout 05/31/2017 Malignant neoplasm of prostate 09/01/2014 Current Oncology Plans [facility] HEM LYMPHOMA (HEMATOLOGIC MALIGNANCIES) - riTUXimab (WEEKLY)* Plan Start Date:09/19/2023 Plan Provider:Adrianne Ramon MD Linked Problems 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 Past Plans ADULT TREATMENT Plan Name Start Date Discontinue Date Treatment Medications Discontinue Reason Plan Provider Cycles [facility] HEM LYMPHOMA (NHL) - R-CHOP (21 DAY) 10/19/19 23 06/22/2023 cycloPHOSphamide (Cytoxan) in sodium chloride 0.9% 250 mL infusionDOXOrubicin (Adriamycin)riTUXimab -pvvr (Ruxience) (2 mg/mL) in sodium chloride 0.9% infusionvinCRIStine (Oncovin) in sodium chloride 0.9% 25 mL infusion Therapy Complete Adrianne Ramon MD 6 of 6 cycles started Radiation Treatments * No radiation treatments are documented for this patient in [facility]. Treatments may have been administered in another system. Lifetime Dose Tracking * Chemical Lifetime Dose Automatic Entry Manual Entr y doxorubicin 246.299 mg/m2 (511.2 mg) 246.299 mg/m2 (5 11.2 mg) 0 mg/m2 (0 mg) Treatment Summaries Malignant neoplasm of prostate* Cancer Treatment Summary Provided by Anna Carr on 05/31/17 General Information Patient name Cheo Freire (home) Date of 1950 Support contact Claritza Freire-- Care Team Medical Oncologist No primary care provider on file. Surgeon/urologist Dr John Vergara Radiation Oncologist Dr Nitin Stauffer Primary Care Physician CRIS MARINO Treatment Summary Chemotherapy and Supportive Care Treatment History Prostate Cancer Notes Date of Presentation 06/19/2014 Age at Presentation 64 years old PSA at Presentation Presented with testicular enlargement and scrotal swelling(benign) -- PSA was 3.9 in the spring and miguel a to 5.4 in the June of 2014 Presence of Symptoms at Presentation negative Ethnicity White Date of TRUS and Biopsy 09/01/2014 Volume in cc 15 cc [place] grade/score a+b=c 4+3=7-- intermediate risk prostate cancer Total Cores 11 biopsy cores were done Positive cores 1 was positive for cancer JOSE--extracapsular extension + positive--MRI suggest extracapsular bulging SV-seminal vesicle extension -no extension to the seminal vesicles Regular Lymph Nodes -no involvement of area lymph nodes Distant Mets -no evidence of distant metastasis MRI did show some focal narrowing of the rectum--F/U with PCP Date of MRI 10/19/2014 Urinary Continence at Presentation normal Primary Therapy EBRT EBRT Date Began 11/25/2014 ERBT Total Dose (Gy) 79.2 Gy Treatment Fractions 44 Elapsed Date 01/26/2015 Concurrent ADT Hormone therapy for six months Histologic Type Adenocarcinoma Adjuvant Therapy LHRH agonist --09/29/2014-- Lupron 22.5 mg IM --12/22/2014- Lupron 22.5 mg IM ADT Duration in Months 6 months PSA pita < 0.1 Date of PSA pita 02/25/2014 Follow-up and Survivorship Care ngoing surveillance: --year one post treatment: PSA and clinical exam every three months --year two to five--PSA and clinical evaluation every six months --after year five--PSA and clinical exam once a year Followup is to check to make sure that there is no recurrence and to check for late effects of treatment. Potential late effects of treatment(s): Late and manager intermediate effects or radiation therapy to the prostate include the followin. Changes in urinary flow due to fibrosis or scaring that can occur to the bladder neck. Let your cancer team know if you are having difficulty voiding 2. Blood in your urine could be due to previous radiation therapy. You may be at increased risk fora bladder tumor so this symptom needs to be evaluated if it occurs, with CT scans of your abdomen and pelvis and a test called a cystoscopy to look inside your bladder. You have an increased risk of having a bladder cancer so any bleeding needs to be evaluated. 3. Blood in your stool: Radiation therapy can cause some blood vessel changes to the lining of yourrectum called angioectasias. If you see blood in your stool you need to let your doctor know. 4. Erectile dysfunction can result from treatment 5. Usual effects of hormone depletion drugs include fatigue, anemia, weight gain, hot flashes, muscle mass loss, breast tenderness, changes in liver function, elevation of blood glucose, loss of libido (desire for sexual function, mood changes. Call your doctor if you have any of these signs and symptoms: Difficulty or changes in your urine flow Blood in your urine or stool New pain that does not go away after two weeks You should have a colonoscopy every five to ten years You should have your PSA checked as noted above. These recommendations are from the National cancercare Network (NCCN) guidelines. . Your PSA results have been as follows: Laboratory Studies: Date PSA testosterone 05/23/2017 < 0.1 196 12/07/2017 < 0.1 183 05/16/2016 < 0.1 167 05/24/2016 < 0.1 02/22/2016 < 0.1 122 11/22/2015 < 0.1 153 08/30/2015 < 0.1 171 05/11/2015 < 0.1 < 10 02/25/2015 < 0.1 Pretreatment PSA 5.4 Wellness: PCP followup--continue to see your primary doctor at least yearly for health maintenance Immunization--Flu vaccine: Immunization of inactivated vaccines is recommended for cancer survivors. This includes yearly flu vaccines. CDC guidelines for pneumococcal vaccines. Exercise--we recommend regular exercise for bone health and for overall well being. Screenings--cancer screening: colonoscopy every five to ten years based on Findings and based on age. Nutrition--Follow the [place] Cancer Society Guidelines that include the following: limit consumption of processed meat and red meat; eat at least 2.5 cups of vegetables and fruits daily; choose whole grains instead of refined grain products. High fiber and low fat diet is advised. You need to avoid constipation and straining. Hydration--good hydration with water and avoiding caffeine to minimize risk of bladder irritation and bleeding. Smoking --Smoking increases your risk for many types of cancer. There are counselors who can help you with smoking cessation. Alcohol: Minimize alcohol intake to one two drinks per day for men. (1.5 oz. hard alcohol, 5 oz. wine, 12 oz. beer). Sunscreen: Use sunscreen with SPF/UVA and UVB whenever you are out in the sun for more than 15 minutes. Use protective clothing such as hats, and long sleeves. Alteration in Sexual function: Discuss any concerns with your cancer team. Testosterone replacement: Do not start testosterone replacement. This increases your risk of prostate cancer recurrence. Comment: Based on current guidelines if your PSA were to rise to 2.0 you would be considered to have biochemical failure a term that means that your doctor should do some tests to determine if there is recurrence of your prostate cancer. Those tests should include a CT scan of your abdomen and pelvis as well as a nuclear bone scan. If your PSA were to rise at that level you should be seen by a medical oncologist for a consultation to calculate your PSA doubling time and to determine the timing for considering starting what is called hormone therapy and or chemotherapy. Resources: Helpful websites www. cancer. gov National Cancer [place] www.nccn.org National Comprehensive Cancer Network www.canceradvocacy.org National Coalition for Cancer Survivorship www.livestrong.org Livestrong Survivor Care www.acscsn.org Cancer Survivors Network nAna Carr APRN- Radiation Oncology Adapted from [place] Society of Clinical Oncology 2008 Cancer Treatment Plan Summary Survivorship care provider contacts PAINTING DEPARTMENT SUPERVISOR: Anna Carr
--- OUTSIDE RECORDS SUMMARY | 2023-09-17 01:33 | XMS_ITS | Encounter Summary ---
Author Organization [facility] [place] [address] Care Team Providers Care Stove Installer Name Role Phone Frederick Meade MD Primary Care Provider [phone] [phone] Encounter Details Date Type Department Care Team (Latest Contact Info) Description 06/13/2023 Travel Social History Tobacco Use Types Packs/Day [...] place to sleep or slept in a retirement (including now)? No 10/11/2022 Sex and Gender Information Value Date Recorded Sex Assigned at Not on file Gender Identity Not on file Sexual Orientation Not on file documented as of this encounter Plan of Treatment Upcoming Encounters Date Type Department Care Team (Late st Contact Info) Description 09/19/2023 8:00 AM EDT Infusion Hematology Oncology at [address] [phone] 09/21/2023 9:30 AM EDT Office Visit Hematology [place] [address] Micha Givens Jr., MD [facility] [place]AT[place] [address] 09/21/2023 10:30 AM EDT Clinical Support Hematology [place] [address] Danii Her RN 09/26/2023 8:30 AM EDT Infusion Hematology Oncology at [address] [phone] 10/03/2023 9:00 AM EDT Office Visit Hematology/Oncology at [address] [phone] Adrianne Ramon MD [facility] [place]ATOLOGY [place] [address] Yael Merlos APRN [facility] [place] [address] 10/03/2023 9:30 AM EDT Infusion Hematology Oncology at [address] [phone] 10/10/2023 8:30 AM EDT Infusion Hematology Oncology at [address] [phone] documented as of this encounter Visit Diagnoses Not on filedocumented in this encounter Care Teams Stove Installer Relationship Specialty Start Date End Date Frederick Meade MD [address] [place] [address] PCP - General Family Medicine 11/29/17 documented as of this encounter
--- OUTSIDE RECORDS SUMMARY | 2023-09-17 01:33 | XMS_ITS | Encounter Summary ---
Author Organization [facility] Address [facility] [place] [address] Care Team Providers Care Material Requirements Planning Manager Name Role Phone Frederick Meade MD Primary Care Provider [phone] [phone] Reason for Visit * Reason Onset Date Comments Other 09/13/2023 Financial paperw ork Encounter Details Date Type Department Care Team (Late st Contact Info) Description 09/13/2023 Telephone Hematology/Oncology at [address] [phone] Colt Ardon, RN Other (Financial paperwork ) Social History Tobacco Use Types Packs/Day Years [...] place to sleep or slept in a penitentiary (including now)? No 10/11/2022 Sex and Gender Information Value Date Recorded Sex Assigned at Not on file Gender Identity Not on file Sexual Orientation Not on file documented as of this encounter Miscellaneous Notes * Telephone Encounter - Colt Ardon RN - 09/13/2023 2:15 PM EDT Completed BMS Access Support forms faxed to [phone], fax confirmed. Copy of application and supporting financial docs scanned into media for reference. documented in this encounter Plan of Treatment Upcoming Encounters Date Type Department Care Team (Late st Contact Info) Description 09/19/2023 8:00 AM EDT Infusion Hematology Oncology at [address] [phone] 09/21/2023 9:30 AM EDT Office Visit Hematology [place] [address] Micha Givens Jr., MD [facility] DR HEMATOLOGY [place] [address] 09/21/2023 10:30 AM EDT Clinical Support Hematology [place] [address] Danii Her RN 09/26/2023 8:30 AM EDT Infusion Hematology Oncology at [address] [phone] 10/03/2023 9:00 AM EDT Office Visit Hematology/Oncology at [address] [phone] Adrianne Ramon MD [facility] HEMATOLOGY [place] [address] Yael Merlos APRN [facility] HEMATOLOGY [place] [address] 10/03/2023 9:30 AM EDT Infusion Hematology Oncology at [address] [phone] 10/10/2023 8:30 AM EDT Infusion Hematology Oncology at [address] [phone] documented as of this encounter Visit Diagnoses Not on filedocumented in this encounter Care Teams Material Requirements Planning Manager Relationship Specialty Start Date End Date Frederick Meade MD [address] [place] [address] PCP - General Family Medicine 11/29/17 documented as of this encounter
--- OUTSIDE RECORDS SUMMARY | 2023-09-17 01:33 | XMS_ITS | Encounter Summary ---
Author Organization [facility] Address [address] [place] [address] Care Team Providers Care Manager Pharmaceutical Name Role Phone Unavailable Primary Care Provider Unavailabl e Encounter Details Date Type Department Care Team (Late st Contact Info) Description 12/19/2006 Results Only [facility] conversion [address] [place] [address] Micha Pindea MD [address] [place] [phone] Social History Tobacco Use Types Packs/Day Years Used Date Smoking Tobacco: Never Assessed Sex and Gender Information Value Date Recorded Sex Assigned at Not on file Gender Identity Not on file Sexual Orientation Not on file documented as of this encounter Plan of Treatment Not on file documented as of this encounter Procedures Procedure Name Priority Date/Time Associated Diagnosis Comments SURGICAL PATHOLOGY Routine 12/19/2006 0:00 EDT documented in this encounter Results * SURGICAL PATHOLOGY (12/19/2006 0:00 EDT) Pathology Report: SURGICAL PATHOLOGY REPORT Reports generated via electronic interface contain original data; however they are lacking the format of the original report. Caution should be taken when reading/interpreti ng unformatted reports. Name: ? CHEO MORFIN ? Accession #: ? [id number] ? : ? 1950 (Age: 56) ??M ? Collect Date: ? 12/19/2006 ? Location: ? [facility] ? Receive Date: ? 12/19/2006 ? Provider: RHYS PINEDA MD Copy to: GASPER HEWITT MD ? Final Pathologic Diagnosis: A. ?Colon, rectum, polyp, biopsy: 1. ?Hyperplastic polyp. B. ?Gastroesophageal junction, biopsy: 1. ?Squamous mucosa with reactive epithelial changes. 2. ? Glandular mucosa with chronic active inflammation. C. ?Stomach, body, biopsy: 1. ?No pathologic features. Document reviewed and electronically signed by: Alexis Banks MD Report ??Date: 12/21/2006 19:24 By the signature above, the attending physician certifies that he/she has personally conducted a gross and/or microscopic examination of the described specimens and rendered or confirmed the above diagnosis. Specimen(s) Received: A. ?Rectal polyp (#1) B. ? Bx GE junction (#2) C. ? B gastric body (#3) Clinical History: ? Hx polyps, anemia Gross Description: ? Received in Hollande's fixative labelled D[place]ell and rectal polyp is a 0.3 x 0.3 x 0.3 cm plasencia-pink soft tissue fragment. ??The specimen is entirely submitted as (A). Received in Hollande's fixative labelled Dwinell and #2 - GE junction is a 0.3 x 0.3 x 0.2 cm plasencia-pink soft tissue. ??The specimen is entirely submitted as (B). Received in Hollande's fixative labelled Dwinell and gastric bx body is a 0.3 x 0.3 x 0.3 cm plasencia-pink soft tissue fragment. ??The specimen is entirely submitted as (C). ??(Dr. Echavarria)/[facility] End of Report [facility] 12/19/2006 12/19/2006 15: 40 EDT Micha Pineda MD PATHOLOGY ORDERABLES Performing Organization Address City/State/[facility] Co de Phone Number [facility] [address] [place] [address] documented in this encounter Visit Diagnoses Not on filedocumented in this encounter
--- OUTSIDE RECORDS SUMMARY | 2023-09-17 01:33 | XMS_ITS | Encounter Summary ---
[place] [address] Care Team Providers Care Analog Circuit Designer Name Role Phone Frederick Meade MD Primary Care Provider [phone] [phone] Reason for Referral * Diagnostic Test (Routine) - Closed Specialty Diagnoses / Procedures Referred By Contac t Referred To Contact Radiology Diagnoses 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 Skin nodule Procedures NM PET CT Standard Plus Extremities and Head Adrianne Ramon MD [facility] [address] [place] [address] [place] [address] Referral ID Status Reason Start Date Expiration Date V isits Requested Visits Authorized [id number] Closed Specialty Service Requested 08/22/2023 02/21/2025 1 1 Reason for Visit * Diagnostic Test (Routine) - Closed Specialty Diagnoses / Procedures Referred By Contac t Referred To Contact Radiology Diagnoses 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 Skin nodule Procedures NM PET CT Standard Plus Extremities and Head Adrianne Ramon MD [facility] [address] [place] [address] [place] [address] Referral ID Status Reason Start Date Expiration Date V isits Requested Visits Authorized [id number] Closed Specialty Service Requested 08/22/2023 02/21/2025 1 1 Encounter Details Date Type Department Care Team (Jaciel teixeira Contact Info) Description 09/06/2023 12:59 PM EDT Hospital Encounter [place] [phone] Adrianne Ramon MD [facility] DR [place] [address] 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 [...] place to sleep or slept in a residential (including now)? No 10/11/2022 Sex and Gender [...] 8:00 AM EDT Infusion Hematology Oncology at [address] [phone] 09/21/2023 9:30 AM EDT Office Visit Hematology [place] [phone] Micha Givens Jr., MD [facility] DR [place] [address] 09/21/2023 10:30 AM EDT Clinical Support Hematology [place] [phone] Danii Her RN 09/26/2023 8:30 AM EDT Infusion Hematology Oncology at [address] [phone] 10/03/2023 9:00 AM EDT Office Visit Hematology/Oncology at [address] [phone] Adrianne Ramon MD [facility] [place] [address] Yael Merlos APRN [facility] [place] [address] 10/03/2023 9:30 AM EDT Infusion Hematology Oncology at [address] [phone] 10/10/2023 8:30 AM EDT Infusion Hematology Oncology at [address] [phone] documented as of this encounter Procedures Procedure Name Priority Date/Time Associated Diagnosis Comments NM PET CT STANDARD PLUS EXTREMITIES AND HEAD Routine 09/06/2023 2:45 PM EDT 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 Skin nodule documented in this encounter Results * NM PET CT Standard Plus Extremities and Head (09/06/2023 2:45 PM EDT) WORKSTATION ID [id number] RAD Anatomical Region Laterality Modality Positron Emissio [...] who have questions please contact the health rn critical care that requested your imaging first. ? Narrative 09/10/2023 11:18 AM EDT EXAMINATION: NM [...] unspecified. TECHNIQUE: Procedure: Following IV injection of 75-eqleaw-4-deoxyglucose (FDG) a standard uptake of approximately 60 [...] unspecified. TECHNIQUE: Procedure: Following IV injection of 95-wtpoqz-7-deoxyglucose(FDG) a standard uptake of approximately 60 minutes, [...] patients who have questions please contactthe health rn critical care that requested your imaging first. Adrianne Ramon MD IMG PET ORDERABL ES documented in this encounter Visit Diagnoses Diagnosis 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 Skin nodule Localized superficial swelling, mass, or lump documented in this encounter Administered Medications Inactive Administered Medications - up to 3 most recent administrations Medication Order MAR Action Action Date Dose Rate Site fludeoxyglucose (F-18) FDG injection 0-20 mCi 0-20 mCi, Intravenous, ONCE PRN, 1 dose, Starting on Jadyn 09/06/23 at 1311, Until Jadyn 09/06/23 at 1310, Per Protocol, Radiology Contrast, Routine Given 09/06/2023 1:10 PM EDT 12.8 mCi Right Arm documented in this encounter Care Teams Analog Circuit Designer Relationship Specialty Start Date End Date Frederick Meade MD [address] [place] [address] [address] [facility] [place] [address] PCP - General Family Medicine 11/29/17 documented as of this encounter
--- OUTSIDE RECORDS SUMMARY | 2023-09-17 01:34 | XMS_ITS | Encounter Summary ---
Author Organization [facility] Address [facility] [place] [address] Care Team Providers Care Administrative Fellow Name Role Phone Frederick Meade MD Primary Care Provider [phone] Encounter Details Date Type Department Care Team (Late st Contact Info) Description 03/14/2023 11:30 AM EST Office Visit Hematology/Oncology at [address] [phone] Adrianne Ramon MD [facility] [address] [place] [address] Yael Merlos APRN [facility] [address] [place] [address] 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; Iron deficiency anemia, unspecified iron deficiency anemia type Social History Tobacco Use Types Packs/Day Years [...] place to sleep or slept in a assisted (including now)? No 10/11/2022 Sex and Gender Information Value Date Recorded Sex Assigned at Not on file Gender Identity Not on file Sexual Orientation Not on file documented as of this encounter Last Filed Vital Signs Vital Sign Reading Time Taken Comments Blood Pressure 139/68 03/14/2023 11:30 AM EST Pulse 74 03/14/2023 11:30 AM EST Temperature 36.4 ??C (97.5 ??F) 03/14/2023 11:[address] Respiratory Rate 16 03/14/2023 11:30 AM EST Oxygen Saturation 97% 03/14/2023 11:30 AM EST Inhaled Oxygen Concentration - - Weight 93 kg (205 lb) 03/14/2023 11:30 AM EST Height 168.6 cm (5' 6.38) 03/14/2023 11:[address] Body Mass Index 32.71 03/14/2023 11:30 AM EST documented in this encounter Progress Notes * Adrianne Ramon MD - 03/14/2023 11:30 AM EST Hematology Clinic [facility] [place] [address] HEMATOLOGY PATIENT EVALUATION PROBLEM LIST: Patient Active Problem List Diagnosis Abnormal echocardiogram 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 Anemia, iron deficiency Gout Malignant neoplasm of prostate HISTORY OF PRESENT ILLNESS: Patient prefers to be called: Cheo Support person(s) : Claritza son Cheo It was my pleasure to meet Cheo Freire today. Cheo Freire is a 72 y.o. male being seen for evaluation of of newly diagnosed B cell lymphoma. he is referred in consultaion from Dr Lg Ramírez ENT. 4 week h/o of sinus swelling and then cervial LN and could not breath. ~2 weeks ago saw [facility] in [facility] and when to [facility]. No beds so sent to [facility] for [address] CAP, MRI,and biopsies there. He reports that he was treated for presumed infection (presumed acute retropharyngeal abscess) with Augmentin and dexamethasone. There was also question of whether he may have been having an allergic reaction to lisinopril. He was discharged off of steroids. He then saw Dr. Ramírez urgently on 10/05/2022, who performed 2 biopsies, one of the tonsil, and 1 needle biopsy of a right post cervical lymph node. Dr. Gloria started prednisone 60 mg daily x7 days with nice response. Pathology from [facility] reports large B-cell lymphoma. Double expresser. FISH for translocations are pending. Tongue swelling. No wt loss. Eating and drinking OK. No fevers, infections, No NS. Pain in neck.Prednisone 60mg daily X 7 days. I feel great on prednisone last day of prednisone is today Took iron supplements per PCP - unclear cause. - last COLO at [facility] was 01/17/2012. INTERIM HISTORY OF PRESENT ILLNESS: Cheo returns to clinic today in routine follow-up for his newly diagnosed DLBCL and in f/u after completion of 6 cycles of RCHOP and PET-6 last week. Cheo reports feeling quite well. Cheo denies fevers, chills, recurrent infections or intercurrent illnesses. No signs of diarrhea. His stool issoft formed. No neuropathy. He remains on prophylactic Vanco through the duration of this treatmentdue to c-diff. No drenching sweats, unintentional weight loss or palpable adenopathy. His energy and stamina are reasonably good as long as he paces himself. No neuropathy. No new health-related concerns. 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 6 mos of adjuvant Lupron. Total dose 79.2 Gy completed 01/26/15 09/29/22 Large B Cell lymphoma - biopsy of tongue and needle of cervical LN. FISH from [place] No MYCrearrangement and no fusion of MYC [...] 15 years - not requiring medications Hypertension 2015 Prostate CA - lupron and XRT Gout Diverticulosis without diverticulitis Anemia Cataract PSHX: Appendectomy as a child Tonsillectomy as a child 2013 bilateral ing surgery ROS Energy level: fair/good, still paces himself and naps dailyas needed during the pita of cycle Pain: No Appetite: good Unexpected weight loss or gain: wt loss w/ admission for c-diff, now stable Change in adenopathy or other masses: No Fevers/chills/sweats: No Bruising/bleeding/melena: No Recent infections: No Headaches: No Vision: No Hearing: No changes Sinus: No congestion/pain Seasonal Allergies: No Mouth sores: No Dentition: Good Swallowing: Normal GERD: a few episodes recently related to food choices improved with single dose of TUMs Nausea/vomiting: No diarrhea/constipation: No, bowel movements are soft-formed without pain,cramping or frequency SOB/CONTEH/pulmonary sx: No Cardiac symptoms: No sx: working with Urologist regarding urinary frequency, hesitation and nocturia [unchanged] Skin rashes or petechiae: No Musculoskeletal complaints: No Extremities: Negative upper and lower bilaterally Neurologic symptoms: No Mental Status changes: No Mood: Normal Sleep: No difficulties sleeping MEDS: Current Outpatient Medications Medication Instructions acyclovir (ZOVIRAX) 400 mg, Oral, 2 TIMES DAILY allopurinoL (ZYLOPRIM) 200 mg, Oral, DAILY amLODIPine [...] (0) Powder Oral, 2 TIMES DAILY PRN tamsulosin (FLOMAX) 0.4 mg, Oral, DAILY vancomycin (VANCOCIN) 125 mg, Oral, 2 TIMES DAILY ALLERGIES: No Known Allergies FAMILY HISTORY: reviewed, no changes Mother: ETOH Cirrhosis Father: DM Sibs: Sister alive w/ DM ; 1/2 bro with DM, poorly controlled. Children: son pre-DM Other: negative SOCIAL HISTORY: reviewed, no changes Personal: Claritza 37 years (third marriage, divorce and ) 4 children only 1 biologic. Son Cheo Freire. Enjoys [employer], movies, race car, cards. [employer]. 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 Not a . ETOH: 1-3 beers per week Smoking: Quit 1985. Approximately [id number] history Vaping or electronic cigarettes: denies Chewing tobacco: denies Marijuana or other recreational drug use: none HIPPA Contact Permission: Claritza and Cheo. Also OK to talk to Delia adult children. OK to leave message with medical information on home or cell phone: home phone PHYSICAL EXAM BP 139/68 (Patient Position: Sitting) Pulse 74 Temp 36.4 ??C (97.5 ??F) (Temporal) Resp 16 Ht 168.6 cm (5' 6.38) Wt 93 kg (205 lb) SpO2 97% BMI 32.71 kg/m?? GENERAL: Cheo Freire is a delightful 72-year old male in [facility]. He is accompanied to the clinic by his today. ENT: Oropharynx clear. Slight asymmetric smile and tongue deviates slightly to left EYES: ELSI NECK: Supple without palpable masses appreciated on exam AXILLARY: no adenopathy INGUINAL LN: no adenopathy OTHER LYMPH: no adenopathy CARDIAC: Regular rate and rhythm without S3,S4 or murmurs. LUNGS: Clear to auscultation bilaterally ABDOMEN: Soft and non-tender without hepatosplenomegaly or palpable masses. NABS EXTREMITIES: No cyanosis, clubbing, edema or calf tenderness. SKIN: No bruises or petechiae. NEUROLOGICAL: Alert and oriented to person, place and time. MUSCULOSKELETAL: No spinal or chest wall tenderness. LABORATORY STUDIES No results found for this or any previous visit (from the past 72 hour(s)). Latest Reference Range & Units 03/06/23 07:45 WBC 4.0 - 9.5 x10(3)/mcL 5.8 RBC 4.58 - 5.54 x10(6)/mcL 3.67 (L) Hemoglobin 13.7 - 16.5 g/dL 11.3 (L) Hematocrit 40.5 - 48.5 % 34.5 (L) MCV 82.9 - 93.1 fL 94.0 (H) MCH 27.5 - 32.1 pg 30.8 MCHC 32.0 - 35.7 g/dL 32.8 RDWSD 36.0 - 45.0 fL 54.8 (H) RDWCV 11.4 - 13.8 % 15.9 (H) Platelets 145 - 357 x10(3)/mcL 211 MPV 7.6 - 12.9 fL 10.2 nRBC % Auto % 0.0 nRBC Abs Auto 0.000 - 0.000 x10(3)/mcL 0.000 Neutr Abs (ANC) 1.70 - 6.10 x10(3)/mcL 3.23 Neutrophils % % 56.0 Immature Gran % % 0.20 Lymphocytes % % 12.1 Monocytes % % 20.5 Eosinophils % % 10.2 Basophils % % 1.0 Nellie Gran Abs 0.00 - 0.04 x10(3)/mcL 0.01 Lymphocytes Abs 0.9 - 3.2 x10(3)/mcL 0.7 (L) Monocyte Abs 0.3 - 0.9 x10(3)/mcL 1.2 (H) Eosinophils Abs 0.0 - 0.4 x10(3)/mcL 0.6 (H) Basophils Abs 0.0 - 0.1 x10(3)/mcL 0.1 Sodium 135 - 145 mmol/L 143 Potassium 3.5 - 5.0 mmol/L 3.7 Chloride 98 - 107 mmol/L 108 (H) CO2 22 - 31 mmol/L 23 Anion Gap 5 - 15 mmol/L 12 BUN 10 - 20 mg/dL 12 Creatinine 0.80 - 1.50 mg/dL 0.94 Estimated GFR >=60 mL/min/1.73 m?? 85 Calcium 8.5 - 10.5 mg/dL 9.6 Uric Acid 3.5 - 8.5 mg/dL 5.5 Glucose Lvl 65 - 199 mg/dL 133 Total Protein 6.1 - 8.0 g/dL 6.4 Albumin 3.2 - 5.2 g/dL 4.1 Total Bilirubin 0.2 - 1.3 mg/dL 0.2 Alk Phos 40 - 130 unit/L 103 AST 0 - 39 unit/L 22 ALT 0 - 55 unit/L 18 LDH 110 - 220 unit/L 198 IgG 700 - 1,600 mg/dL 572 (L) IgA 70 - 400 mg/dL 118 IgM 40 - 230 mg/dL 123 PATHOLOGY: Final Diagnosis A. Tongue base, left: -Large B-cell lymphoma, incompletely classified. See comment. Diagnosis Comment The findings are those of a large B-cell lymphoma that exhibits a non-germinal center immunophenotype and expresses Myc and BCL-2 protein (Double Expressor.) Flow cytometry ([id number]) supports this interpretation. FISH from [place] No MYC rearrangement and no fusion of MYC and IGH was observed, CD3 (SP7, [employer]) Background T-cells CD20 (L26, [place]) diffusely positive in Neoplastic B-cells PAX-5 (1EW, [employer]) diffusely positive in Neoplastic B-cells CD10 (SP67, [place]) Negative BCL-6 (G/191E/A8, [place]) Positive MUM-1 (MUM1p, [place]) Positive Myc (Y69, [employer]) Positive BCL-2 Oncoprotein (124, [place]) Positive Ki67 (MIB-1) (K2, [employer]) Greater than 95% of cells in cycle Cyclin D1(SP4-R, [place]) Negative SAPPHIRE JOSE ([id number], [employer]) Negative. DIAGNOSTICS: 01/25/23 ECHO after C#5 [...] comparison study is available. RADIOLOGY STUDIES REVIEWED: No new images reviewed today 03/06/23 PET after C#6 IMPRESSION 1. No [...] Deauville score 4. 10/11/22 PET IMPRESSION 1. Jerilyn involvement by lymphoma in the neck, chest, [...] undergo investigation with ultrasound. CT CAP at [facility], report and images have been requested. ASSESSMENT/PLAN: Cheo Freire is a very pleasant 72 y.o. male referred y Dr Lg Ramírez of ENT for newly diagnosed large B cell lymphoma.. It was a pleasure to see Cheo, his Claritza, and his son Cheo. Cheo returns today s/p 6 cycles of R-CHOP chemotherapy. Despite Neulasta prophylaxis, cycle #1 was complicated by hospitalization with neutropenic fever and significant GI complications. Cycle #2 was administered with dose reduction in vincristine to 1 mg and Cytoxan and Adriamycin dosed at 66% of original dosing. As he did fine with cycles #3 and 4, the dose of Cytoxan and Adriamycin were increased to 80% with cycle #5 without excessive toxicity. --no clinical or laboratory suggestion of disease progression --no additional dose modifications to treatment plan indicated Cardiac -Cheo has no cardiac history. No [...] LVEF at 50-55%. --asymptomatic --repeat echo at [facility] 1 year post completion of therapy Suspected MEHNAZ - Hgb drop 3gm in [...] He has recovered from c-diff colitis --no intervention C-diff colitis - unable to afford Dificid prescribed at discharge from the hospital so his course was completed with treatment doses of Vano completed on 11/30/22 following which prophylactic oral vanco 125mg po bid was initiated and will continue for the duration of his chemotherapy. No prophylactic broad spectrum antimicrobials. Continue Probiotic daily Neuropathy - none to date. N/V - none to date. Plan: RTC in 3 mos with cbc, cmp, ldh, iron studies and appt discontinue Vanco 125mg bid for duration of therapy. Repeat echo 1 year post completion of therapy (Jan- Feb) Recheck iron studies with next appt. Discontinue ACV 400mg po bid Given c-diff, will need to consider vanco prophy if requires ATB in next 6 - 12 mos Recommend COVID vaccine though he is aware that he may not have a robust response due to ongoing chemotherapy with B-cell depletion. He has already received influenza vaccine. CT N, CAP surveillance in 6 mos (summer 2023) Surveillance every 3 mos for first year (Feb 2024) and every 4 mos for second year (Feb 2025) and then q 6 mos to Feb 2028. Send PET images to [facility] for future comparison w/ surveillance CT scans. Recheck IgG sometime in 2023 I discussed all of the above with the patient and all of his questions were answered. Support and counseling as appropriate. Copy Frederick Meade MD documented in this encounter Plan of Treatment Upcoming Encounters Date Type Department Care Team (Late st Contact Info) Description 09/19/2023 8:00 AM EDT Infusion Hematology Oncology at [address] [phone] 09/21/2023 9:30 AM EDT Office Visit [place]ematology [place] [phone] Micha Givens Jr., MD [facility] [place] [address] 09/21/2023 10:30 AM EDT Clinical Support [place]ematology [place] [phone] Danii Her RN 09/26/2023 8:30 AM EDT Infusion Hematology Oncology at [address] [phone] 10/03/2023 9:00 AM EDT Office Visit Hematology/Oncology at [address] [phone] Adrianne Ramon MD [facility] DR [place]AT[place] [address] Yael Merlos APRN [facility] [address] [place]AT[place] [address] 10/03/2023 9:30 AM EDT Infusion Hematology Oncology at [address] [phone] 10/10/2023 8:30 AM EDT Infusion Hematology Oncology at [address] [phone] documented as of this encounter Visit Diagnoses Diagnosis 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 Iron deficiency anemia, unspecified iron deficiency anemia type documented in this encounter Care Teams Administrative Fellow Relationship Specialty Start Date End Date Frederick Meade MD [address] [place] [address] PCP - General Family Medicine 11/29/17 documented as of this encounter
--- OUTSIDE RECORDS SUMMARY | 2023-09-17 01:34 | XMS_ITS | Encounter Summary ---
[place] [address] Care Team Providers Care E Tailer Name Role Phone Frederick Meade MD Primary Care Provider [phone] Reason for Referral * Diagnostic Test (Routine) - Closed Specialty Diagnoses / Procedures Referred By Contac t Referred To Contact Radiology Diagnoses 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 Procedures NM PET CT Skull Base to Mid-thigh Yael Merlos CYBER INSTRUCTOR [facility] [address] HEMAT[place] [address] [place] [address] Referral ID Status Reason Start Date Expiration Date V isits Requested Visits Authorized [id number] Closed Specialty Service Requested 01/15/2023 07/15/2024 1 1 Reason for Visit * Diagnostic Test (Routine) - Closed Specialty Diagnoses / Procedures Referred By Contac t Referred To Contact Radiology Diagnoses 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 Procedures NM PET CT Skull Base to Mid-thigh Yael Merlos CYBER INSTRUCTOR [facility] H[place] [address] [place] [address] Referral ID Status Reason Start Date Expiration Date V isits Requested Visits Authorized [id number] Closed Specialty Service Requested 01/15/2023 07/15/2024 1 1 Encounter Details Date Type Department Care Team (Latest Contact Info) Description 03/06/2023 7:52 AM EST - 03/06/2023 11:59 PM EST Hospital Encounter [place] [phone] Yael Merlos APRN [facility] [address] HEMATOLOGY [place] [address] 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 Discharge Disposition: Home Social History Tobacco Use [...] tablet Take 5 mg by mouth daily. HYLA MobileTOUCH ULTRA BLUE TEST STRIP Strip USE TO [...] Chewable Take 81 mg by mouth daily. tamsulosin (Flomax) 0.4 mg capsule Take 0.4 mg by mouth daily. 08/22/2023 acyclovir (Zovirax) 400 mg tablet Take 1 tablet by mouth 2 times daily. 60 tablet 5 10/17/2022 03/14/2023 predniSONE (Deltasone) 50 mg tablet Take 2 tablets by mouth daily. Days 2-5 of each chemo cycle 8 tablet 5 10/17/2022 03/14/2023 documented as of this encounter Plan of Treatment Upcoming Encounters Date Type Department Care Team (Late st Contact Info) Description 09/19/2023 8:00 AM EDT Infusion Hematology Oncology at [address] [phone] 09/21/2023 9:30 AM EDT Office Visit Hematology [place] [address] Micha Givens Jr., MD [facility] [address] HEMATOLOGY [place] [address] 09/21/2023 10:30 AM EDT Clinical Support Hematology [place] [phone] Danii Her RN 09/26/2023 8:30 AM EDT Infusion Hematology Oncology at [address] [phone] 10/03/2023 9:00 AM EDT Office Visit Hematology/Oncology at [address] [phone] Adrianne Ramon MD [facility] DR HEMATOLOGY [place] [address] Yael Merlos, KARLA [facility] [address] HEMATOLOG[place] [address] 10/03/2023 9:30 AM EDT Infusion Hematology Oncology at [address] [phone] 10/10/2023 8:30 AM EDT Infusion Hematology Oncology at [address] [phone] documented as of this encounter Procedures Procedure Name Priority Date/Time Associated Diagnosis Comments NM PET CT SKULL BASE TO MID-THIGH ([facility]) Routine 03/06/2023 9:17 AM EST 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 documented in this encounter Results * NM PET CT Skull Base to Mid-thigh (03/06/2023 9:17 AM EST) Anatomical Region Laterality Modality Positron Emissio n Tomography (PET) Impressions 03/08/2023 11:33 AM EST 1. ??No PET CT evidence of active lymphoma, with resolution of previous uptake in the right posterior oropharynx/retropharynx. 2. ??Anatomic resolution of adenopathy. 3. ??Chronic, non-FDG avid consolidation within the right lower lobe may represent an area of rounded atelectasis and/or scarring. This is unchanged since September 2022 PET scan. Thank you for letting us participate in the care of this patient. ??If you are a health care provider and have any questions regarding this report, please contact the number below. ??For patients who have questions please contact the health health and social care teacher that requested your imaging first. ? Narrative 03/08/2023 11:33 AM EST EXAMINATION: NM PET CT STANDARD SKULL BASE TO MID-THIGH CLINICAL HISTORY: Hematologic malignancy, assess treatment response History of diffuse large B-cell lymphoma, status post 6 cycles of RCHOP. TECHNIQUE: Following IV injection of 92-zcgvxn-6-deoxyglucose (FDG) a standard uptake of approximately 60 minutes, a noncontrast CT scan followed by a PET scan were acquired from the base of the skull to mid thighs. The noncontrast CT was used for anatomic localization and photon attenuation correction of the PET scan. Blood glucose level: 126 (mg/dL) FDG dose: 13.7 mCi Blood pool: 2.3 Liver mean: 2.1 COMPARISON: PET/CT 01/05/2023 and PET 10/12/2022 FINDINGS: HEAD/NECK: Normal activity in all soft tissue regions of the neck and visualized lower head. Previous uptake noted along the right posterior oropharynx has resolved. Small remnant cervical lymph nodes continue to decrease in size. For example, there is a left posterior triangle node, image 31 which measures 9 mm, previously 12 mm and with FDG uptake similar to blood pool. CHEST: Groundglass opacities in the upper lobes have improved. There is persistent rounded area of consolidation within the periphery of the right lower lobe with background FDG uptake. No new pulmonary nodules. No FDG avid adenopathy with continue to decrease in size of mediastinal lymph nodes. There is a hiatal hernia. Coronary artery disease is present. There is a right chest port, the catheter tip in the region of the right atrium. ABDOMEN/PELVIS: Normal activity in all soft tissue regions. No FDG avid adenopathy. No non-FDG avid adenopathy. Aortoiliac atherosclerosis is present. Bladder appears slightly thick walled, though is decompressed. Fiducial markers are present within the prostate gland. SKELETON/EXTREMITIES: Overall diffuse uptake within the skeleton is less pronounced compared to the prior PET scan. There are no focal bone lesions. No aggressive lytic or blastic lesions are found on CT. Procedure Note Tracey Flood MD - 03/08/2023 EXAMINATION: NM PET CT STANDARD SKULL BASE TO MID-THIGH CLINICAL HISTORY: Hematologic malignancy, assess treatment response History of diffuse large B-cell lymphoma, status post 6 cycles of RCHOP. TECHNIQUE: Following IV injection of 61-hyzmxp-3-deoxyglucose (FDG) astandard uptake of approximately 60 minutes, a noncontrast CT scan followed by aPET scan were acquired from the base of the skull to mid thighs. The noncontrast CTwas used for anatomic localization and photon attenuation correction of thePET scan. Blood glucose level: 126 (mg/dL) FDG dose: 13.7 mCi Blood pool: 2.3 Liver mean: 2.1 COMPARISON: PET/CT 01/05/2023 and PET 10/12/2022 FINDINGS: HEAD/NECK: Normal activity in all soft tissue regions of the neck and visualizedlower head. Previous uptake noted along the right posterior oropharynx hasresolved. Small remnant cervical lymph nodes continue to decrease in size. Forexample, there is a left posterior triangle node, image 31 which measures 9 mm, previously 12 mm and with FDG uptake similar to blood pool. CHEST: Groundglass opacities in the upper lobes have improved. There ispersistent rounded area of consolidation within the periphery of the right lower lobewith background FDG uptake. No new pulmonary nodules. No FDG avid adenopathy with continue to decrease in size of mediastinallymph nodes. There is a hiatal hernia. Coronary artery disease is present. There is a right chest port, thecatheter tip in the region of the right atrium. ABDOMEN/PELVIS: Normal activity in all soft tissue regions. No FDG avid adenopathy. Nonon-FDG avid adenopathy. Aortoiliac atherosclerosis is present. Bladder appears slightly thick walled, though is decompressed. Fiducialmarkers are present within the prostate gland. SKELETON/EXTREMITIES: Overall diffuse uptake within the skeleton is less pronounced compared tothe prior PET scan. There are no focal bone lesions. No aggressive lytic orblastic lesions are found on CT. IMPRESSION 1. No PET CT evidence of active lymphoma, with resolution of previousuptake in the right posterior oropharynx/retropharynx. 2. Anatomic resolution of adenopathy. 3. Chronic, non-FDG avid consolidation within the right lower lobe may represent an area of rounded atelectasis and/or scarring. This isunchanged since September 2022 PET scan. Thank you for letting us participate in the care of this patient. If youare a health care provider and have any questions regarding this report,please contact the number below. For patients who have questions please contactthe health health and social care teacher that requested your imaging first. Yael Merlos CYBER INSTRUCTOR IMG PET ORDERABLES documented in this encounter Visit Diagnoses Diagnosis 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 documented in this encounter Administered Medications Inactive Administered Medications - up to 3 most recent administrations Medication Order MAR Action Action Date Dose Rate Site fludeoxyglucose (F-18) FDG injection 0-20 mCi 0-20 mCi, Intravenous, ONCE PRN, 1 dose, Starting on Sun03/06/23 at 0811, Until Sun03/06/23 at 0808, Per Protocol, Radiology Contrast, Routine Given 03/06/2023 8:08 AM EST 13.7 mCi Implanted Port documented in this encounter Care Teams E Tailer Relationship Specialty Start Date End Date Frederick Meade MD [address] [place] [address] PCP - General Family Medicine 11/29/17 documented as of this encounter
--- OUTSIDE RECORDS SUMMARY | 2023-09-17 01:34 | XMS_ITS | Encounter Summary ---
[place] [address] Care Team Providers Care Customs Collector Name Role Phone Frederick Meade MD Primary Care Provider [phone] Reason for Referral * Diagnostic Test (Routine) - Closed Specialty Diagnoses / Procedures Referred By Contac t Referred To Contact Radiology Diagnoses 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 Procedures NM PET CT Standard Plus Extremities and Head Yael Merlos APRN [facility] [place]EM[place] [address] [place] [address] Referral ID Status Reason Start Date Expiration Date V isits Requested Visits Authorized [id number] Closed Specialty Service Requested 12/20/2022 06/19/2024 1 1 Reason for Visit * Reason Comments Follow-up Chemotherapy Encounter Details Date Type Department Care Team (Late st Contact Info) Description 12/20/2022 8:30 AM EDT Office Visit Hematology/Oncology at [address] [address] Adrianne Ramon MD [facility] HEMATOLOGY [place] [address] Yael Merlos APRN [facility] [place]EMAT[place] [address] 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 Social History Tobacco Use Types Packs/Day Years [...] place to sleep or slept in a half-way (including now)? No 10/11/2022 Sex and Gender Information Value Date Recorded Sex Assigned at Not on file Gender Identity Not on file Sexual Orientation Not on file documented as of this encounter Last Filed Vital Signs Vital Sign Reading Time Taken Comments Blood Pressure 142/76 12/20/2022 8:31 AM EDT Pulse 77 12/20/2022 8:31 AM EDT Temperature 36.7 ??C (98 ??F) 12/20/2022 8:31 AM EDT Respiratory Rate 16 12/20/2022 8:31 AM EDT Oxygen Saturation 98% 12/20/2022 8:31 AM EDT Inhaled Oxygen Concentration - - Weight 91.4 kg (201 lb 6.4 oz) 12/20/2022 8:31 A M EDT Height 168.6 cm (5' 6.38) 12/20/2022 8:31 AM ED T Body Mass Index 32.14 12/20/2022 8:31 AM EDT documented in this encounter Progress Notes * Yael Merlos, SHAPER OPERATOR - 12/20/2022 8:30 AM EDT Hematology Clinic [facility] [place] [address] HEMATOLOGY PATIENT EVALUATION Patient Active Problem List Diagnosis Abnormal echocardiogram [...] ~2 weeks ago saw [facility] and when to [facility]. No beds so sent to [facility] for [address] CAP, MRI,and [...] x7 days with nice response. Pathology from [facility] reports large B-cell lymphoma. Double expresser. FISH for translocations are pending. Tongue swelling. No wt loss. Eating and drinking OK. No fevers, infections, No NS. Pain in neck.Prednisone 60mg daily X 7 days. I feel great on prednisone last day of prednisone is today Took iron supplements per PCP - unclear cause. - last COLO at [facility] was 01/17/2012. INTERIM HISTORY OF PRESENT ILLNESS: Cheo returns to clinic today in routine follow-up for his newly diagnosed DLBCL and in anticipation of cycle #4 of R-CHOP chemotherapy. Since last seen in the clinic ~ 3 weeks ago, Cheo reports feeling quite well. He and his are quite relieved that he has tolerate a cycle of therapy without unexpected toxicity or admission to hospital. Cheo denies fevers, chills, recurrent infections or intercurrent illnesses. No signs of diarrhea. His stool is soft formed. He remains on prophylacticVanco through the duration of this treatment due to c-diff. No drenching sweats, unintentional weight loss or palpable adenopathy. He is doing so much better. Hie energy and stamina have improved. He continues to pace himself. No neuropathy. No new health-related concerns. 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 6 mos of adjuvant Lupron. Total dose 79.2 Gy completed 01/26/15 09/29/22 Large B Cell lymphoma - biopsy of tongue and needle of cervical LN. FISH from [place] No MYCrearrangement and no fusion of MYC [...] 12/20/22 C#4 R-CHOP same dosing as above PMHX: Pre- DM type II ~ 15 years - not requiring medications Hypertension 2015 Prostate CA - lupron and XRT Gout Diverticulosis without diverticulitis Anemia Cataract PSHX: Appendectomy as a child Tonsillectomy as a child 2013 bilateral ing surgery ROS Energy level: improving, still paces himself and naps daily Pain: No Appetite: good Unexpected weight loss or gain: wt loss w/ admission for c-diff, now stable Change in adenopathy or other masses: No Fevers/chills/sweats: No Bruising/bleeding/melena: No Recent infections: No Headaches: No Vision: No Hearing: No changes Sinus: No congestion/pain Seasonal Allergies: No Mouth sores: No Dentition: Good Swallowing: Normal GERD: No Nausea/vomiting: No diarrhea/constipation: No, bowel movements are soft-formed without pin,cramping or frequency SOB/CONTEH/pulmonary sx: No Cardiac symptoms: No sx: working with Urologist regarding urinary frequency, hesitation and nocturia [unchanged] Skin rashes or petechiae: No Musculoskeletal complaints: No Extremities: Negative upper and lower bilaterally Neurologic symptoms: No Mental Status changes: No Mood: Normal Sleep: No MEDS: Current Outpatient Medications Medication Instructions acyclovir (ZOVIRAX) 400 mg, Oral, 2 TIMES DAILY allopurinoL (ZYLOPRIM) 200 mg, Oral, DAILY amLODIPine (NORVASC) 5 mg, Oral, DAILY aspirin 81 mg, Oral, DAILY colchicine (COLCRYS) 0.6 mg, Oral, DAILY PRN diphenoxylate-atropine (Lomotil) 2.5-0.025 mg tablet 1 tablet, Oral, 4 TIMES DAILY PRN ferrous sulfate (FEROSUL) 325 mg, Oral, EVERY OTHER DAY Ibuprofen 200 mg Capsule Oral, 4 TIMES DAILY PRN, Reported on 05/24/2016 lactobacillus (BACID) Capsule 1 tablet, Oral, DAILY loratadine (CLARITIN) 10 mg, Oral, DAILY ONE TOUCH DELICA 33 gauge Misc USE TO TEST DAILY ONETOUCH ULTRA BLUE TEST STRIP Strip USE TO TEST DAILY ONETOUCH ULTRASOFT LANCETS Misc USE TO TEST DAILY predniSONE (DELTASONE) 100 mg, Oral, DAILY, Days 2-5 of each chemo cycle Psyllium Seed-Sucrose (0) Powder Oral, 2 TIMES DAILY PRN tamsulosin (FLOMAX) 0.4 mg, Oral, DAILY vancomycin (VANCOCIN) 125 mg, Oral, 2 TIMES DAILY ALLERGIES: No Known Allergies FAMILY HISTORY: Mother: ETOH Cirrhosis Father: DM Sibs: Sister alive w/ DM ; 1/2 bro with DM, poorly controlled. Children: son pre-DM Other: negative SOCIAL HISTORY Personal: Claritza 37 years (third marriage, divorce and ) 4 children only 1 biologic. Son Cheo Freire. Enjoys Doce[employer], movies, race car, cards. [employer]oture. 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 Not a . ETOH: 1-3 beers per week Smoking: Quit 1985. Approximately 14-efff-tofa history Vaping or electronic cigarettes: denies Chewing tobacco: denies Marijuana or other recreational drug use: none HIPPA Contact Permission: Claritza and Cheo. Also OK to talk to Delia adult children. OK to leave message with medical information on home or cell phone: home phone PHYSICAL EXAM BP 142/76 (Patient Position: Sitting) Pulse 77 Temp 36.7 ??C (98 ??F) (Temporal) Resp 16 Ht168.6 cm (5' 6.38) Wt 91.4 kg (201 lb 6.4 oz) SpO2 98% BMI 32.14 kg/m?? GENERAL: Cheo Freire is a delightful 72-year old male in [facility]. He is accompanied to the clinic by his today. ENT: Oral pharynx clear. Slight asymmetric smile and tongue deviates [...] (with Diff) Result Value Ref Range WBC 8 Hemoglobin 9.8 Hematocrit 30.3 Platelets 264 Neutr Abs (ANC) 5.61 Comprehensive metabolic panel (non-fasting) Result Value Ref Range Creatinine 0.9 Potassium 3.4 Total Bilirubin 0.2 AST 15 ALT 19 LDH 174 Iron 33 TIBC 197 Iron Saturation 17 Ferritin 279 PATHOLOGY: Final Diagnosis A. Tongue base, left: -Large B-cell lymphoma, incompletely classified. See comment. Diagnosis Comment The findings are those of a large B-cell lymphoma that exhibits a non-germinal center immunophenotype and expresses Myc and BCL-2 protein (Double Expressor.) Flow cytometry ([id number]) supports this interpretation. FISH from [place] No MYC rearrangement and no fusion of MYC and IGH was observed, CD3 (SP7, Thermo Scientific) Background T-cells CD20 (L26, Helix) diffusely positive in Neoplastic B-cells PAX-5 (1EW, Leica) diffusely positive in Neoplastic B-cells CD10 (SP67, Helix) Negative BCL-6 (G/191E/A8, Helix) Positive MUM-1 (MUM1p, Dako) Positive Myc (Y69, Abcam) Positive BCL-2 Oncoprotein (124, Helix) Positive Ki67 (MIB-1) (K2, Leica) Greater than 95% of cells in cycle Cyclin D1(SP4-R, Helix) Negative SAPPHIRE JOSE ([id number], Leica) Negative. DIAGNOSTICS: 11/28/22 ECHO after C#2 EF 52% 11/06/22 [...] comparison study is available. RADIOLOGY STUDIES REVIEWED: 10/11/22 PET Reviewed images with patient and family. IMPRESSION 1. Jerilyn involvement by lymphoma in [...] undergo investigation with ultrasound. CT CAP at [facility], report and images have been requested. ASSESSMENT/PLAN: Cheo Freire is a very pleasant 72 y.o. male referred by Dr Lg Ramírez of ENT for newly diagnosed large B cell lymphoma.. It was a pleasure to meet Cheo, his Claritza, and his son Cheo. Cheo returns today s/p 3 cycles of R-CHOP chemotherapy. Despite Neulasta prophylaxis, cycle #1 was complicated by hospitalization with neutropenic fever and significant GI complications. Cycle #2 was administered with dose reduction in vincristine to 1 mg and Cytoxan and Adriamycin dosed at 66% of original dosing. We will continue with current dose modification and given his c-diff, will prophylax with Vanco 125mg PO BID throughout the duration of his chemotherapy (through C#6). Cheo and his were please that he encountered no unexpected complications wit cycle #3 of therapy. --no clinical or laboratory suggestion of disease progression --Proceed with cycle #4 R-CHOP as schedule today with dose reductions as described above --Will schedule interim restaging with a PET scan prior to cycle #5. Cardiac -Cheo has no cardiac history. No [...] Adriamycin, and following ejection fraction closely. He saw Dr. Matthew Barbosa earlier in the week. 11/28/22 Ejection fraction on echocardiogram following cycle #1 was stable at 52%.. Dr Barbosa recommended no changes in therapy. --asymptomatic --We will plan echocardiogram every 2 cycles [next due in early Jan 2023] Suspected MEHNAZ - Hgb drop 3gm in Hgb in October. No overt bleeding though there may have been someGI loss with c-diff colitis. He was prescribed a course of oral iron which has subsequently been discontinued on 12/06/22. Will follow to follow prospectively. Ferritin is normal though falling and iron saturation borderline. Recheck iron studies with next visit. Prostate Cancer - DAVE at this time Constipation - Vinca decreased to 1mg with cycle #2. Stools are soft-formed and regular. He has recovered from c-diff colitis C-diff colitis - unable to afford the remaining 5 day course of Dificid prescribed at discharge so his course was completed with treatment doses of Vano completed on 11/30/22 following which prophylactic oral vanco 125mg po bid was initiated and will continue for the duration of his chemotherapy. No prophylactic broad spectrum antimicrobials. OK to decrease bleach wipe down of bathroom to once a day Probiotic daily Neuropathy - none to date. N/V - none to date. Plan: Vanco 125mg bid for duration of therapy. RTC in 3 week for evaluation for C#5 of R-CHOP with modified dosing [Cytoxan and Adriamycin dose at66% with vincristine at 1 mg]. Neulasta support with Claritin daily x 7 days following administration to minimize bone pain - consider increasing cycles 5 &6 to 80-90% depending on tolerance and restaging PET [scheduled for 01/05/23]. Continue ACV 400mg po bid Given c-diff, will hold on prophylactic antibiotics; vanco prophy as above. Neulasta support. Repeat ECHO in ~ 2 mos - next due early Jan 2023 - booked for 01/25/23 at [facility] Recommend COVID vaccine though he is aware that he may not have a robust response due to ongoing chemotherapy with B-cell depletion. He has already received influenza vaccine. I discussed all of the above with the patient and all of his questions were answered. Support and counseling as appropriate. Yael Merlos, MSN, SHAPER OPERATOR Nurse practitioner Section of Hematology Copy Frederick Meade MD documented in this encounter Plan of Treatment Upcoming Encounters Date Type Department Care Team (Late st Contact Info) Description 09/19/2023 8:00 AM EDT Infusion Hematology Oncology at [address] [phone] 09/21/2023 9:30 AM EDT Office Visit Hematology [place] [phone] Micha Givens Jr., MD [facility] DR HEMATOLOGY [place] [address] 09/21/2023 10:30 AM EDT Clinical Support Hematology [place] [address] Danii Her RN 09/26/2023 8:30 AM EDT Infusion Hematology Oncology at [address] [address] 10/03/2023 9:00 AM EDT Office Visit Hematology/Oncology at [address] [phone] Adrianne Ramon MD [facility] HEMATOLOGY [place] [address] Yael Merlos APRN [facility] HEMATOLOGY [place] [address] 10/03/2023 9:30 AM EDT Infusion Hematology Oncology at [address] [address] 10/10/2023 8:30 AM EDT Infusion Hematology Oncology at [address] [phone] documented as of this encounter Procedures Procedure Name Priority Date/Time Associated Diagnosis Comments CBC (WITH DIFF) Routine 12/20/2022 COMPREHENSIVE METABOLIC PANEL (NON-FASTING) Routine 12/20/2022 documented in this encounter Results * NM PET CT Standard Plus Extremities and Head (01/05/2023 9:05 AM EST) Anatomical Region Laterality Modality Positron Emissio n Tomography (PET) Impressions 01/05/2023 9:50 AM EST 1. ??Near complete metabolic resolution of lymphoma. There remains a focus of increased activity in the right side of the oropharynx which may be due to lymphoma. 2. ??New FDG avid small focal groundglass opacities in the lungs bilaterally are most likely inflammatory. 3. ??Deauville score 4. Thank you for letting us participate in the care of this patient. ??If you are a health care provider and have any questions regarding this report, please contact the number below. ??For patients who have questions please contact the health care process manager that requested your imaging first. ? Electronically signed by: Fletcher Duckworth MD, [facility] ([phone]), at 01/05/2023 9:50 AM Narrative 01/05/2023 9:50 AM EST EXAMINATION: NM PET CT STANDARD PLUS EXTREMITIES AND HEAD CLINICAL HISTORY: Hematologic malignancy, assess treatment response Non-Hodgkin lymphoma TECHNIQUE: Procedure: Following IV injection of 52-vmbffh-6-deoxyglucose (FDG) a standard uptake of approximately 60 minutes, a noncontrast CT scan followed by a PET scan were acquired from the top of head to bottom of feet. The noncontrast CT was used for anatomic localization and photon attenuation correction of the PET scan. Blood glucose level: 124 (mg/dL) FDG dose: 13.7 mCi COMPARISON: FDG PET/CT October 12, 2022 FINDINGS: HEAD/NECK: There has been near complete resolution of the previously seen increased activity in the pharynx. A focus of increased activity within the right side of the oropharynx persists (image 78). There has been resolution of the previously seen bilateral hypermetabolic cervical lymphadenopathy. Bilateral carotid artery calcification. CHEST: FDG avid groundglass opacities are present in the posterior segment of the right upper lobe and the anterior segment of the left upper lobe (image 131 and 124). These foci are new since the prior examination. There has been resolution of the previously seen hypermetabolic lymphadenopathy in the mediastinum, félix and axilla bilaterally. A right anterior chest wall port has a central venous catheter extending to the right atrium. Coronary artery calcification is present. There is a trace pericardial effusion. Centrilobular emphysema. Trace bilateral pleural effusions. ABDOMEN/PELVIS: Normal activity in all soft tissue regions. The previously seen hypermetabolic lymphadenopathy in the abdomen and pelvis has resolved. Increased FDG activity within the spleen has resolved. The liver has a Deepali's lobe configuration. A small focal calcification in the soft tissues of the right anterior abdominal wall (image 231) is most likely due to prior injury. Trace free fluid in the pelvis. Prostatic fiducials markers. Small fat-containing umbilical hernia. Unchanged right renal cyst. SKELETON/EXTREMITIES: Diffusely increased activity in the skeleton is consistent with reactive marrow. Increased activity in the soft tissues of the right foot are most consistent with changes due to a stress reaction. A focus of increased activity in the right knee is consistent with osteoarthritis. Increased activity associated with a healing right posterolateral ninth rib fracture is unchanged. Procedure Note Fletcher Duckworth MD - 01/05/2023 EXAMINATION: NM PET CT STANDARD PLUS EXTREMITIES AND HEAD CLINICAL HISTORY: Hematologic malignancy, assess treatment response Non-Hodgkin lymphoma TECHNIQUE: Procedure: Following IV injection of 37-gorpds-3-deoxyglucose(FDG) a standard uptake of approximately 60 minutes, a noncontrast CT scanfollowed by a PET scan were acquired from the top of head to bottom of feet. Thenoncontrast CT was used for anatomic localization and photon attenuation correction ofthe PET scan. Blood glucose level: 124 (mg/dL) FDG dose: 13.7 mCi COMPARISON: FDG PET/CT October 12, 2022 FINDINGS: HEAD/NECK: There has been near complete resolution of the previously seen increased activity in the pharynx. A focus of increased activity within the rightside of the oropharynx persists (image 78). There has been resolution of the previously seen bilateralhypermetabolic cervical lymphadenopathy. Bilateral carotid artery calcification. CHEST: FDG avid groundglass opacities are present in the posterior segment of theright upper lobe and the anterior segment of the left upper lobe (image 131 [id number]). These foci are new since the prior examination. There has been resolution of the previously seen hypermetaboliclymphadenopathy in the mediastinum, félix and axilla bilaterally. A right anterior chest wall port has a central venous catheter extendingto the right atrium. Coronary artery calcification is present. There is a trace pericardial effusion. Centrilobular emphysema. Trace bilateral pleural effusions. ABDOMEN/PELVIS: Normal activity in all soft tissue regions. The previously seen hypermetabolic lymphadenopathy in the abdomen andpelvis has resolved. Increased FDG activity within the spleen has resolved. The liver has a Deepali's lobe configuration. A small focal calcificationin the soft tissues of the right anterior abdominal wall (image 231) is mostlikely due to prior injury. Trace free fluid in the pelvis. Prostatic fiducialsmarkers. Small fat-containing umbilical hernia. Unchanged right renal cyst. SKELETON/EXTREMITIES: Diffusely increased activity in the skeleton is consistent with reactivemarrow. Increased activity in the soft tissues of the right foot are mostconsistent with changes due to a stress reaction. A focus of increased activity inthe right knee is consistent with osteoarthritis. Increased activity associated with a healing right posterolateral ninthrib fracture is unchanged. IMPRESSION 1. Near complete metabolic resolution of lymphoma. There remains a focusof increased activity in the right side of the oropharynx which may be dueto lymphoma. 2. New FDG avid small focal groundglass opacities in the lungsbilaterally are most likely inflammatory. 3. Deauville score 4. Thank you for letting us participate in the care of this patient. If youare a health care provider and have any questions regarding this report,please contact the number below. For patients who have questions please contactthe health care process manager that requested your imaging first. Electronically signed by: Fletcher Duckworth MD, [facility]([phone]), at 01/05/2023 9:50 AM Yael Merlos SHAPER OPERATOR IMG PET ORDERABLES * Comprehensive metabolic panel (non-fasting) (12/20/2022) Pathologist [facility] Creatinine 0.9 Potassium 3.4 Total Bilirubin 0.2 AST 15 ALT 19 LDH 174 Iron 33 TIBC 197 Iron Saturation 17 Ferritin 279 Blood 12/20/2022 Historical Provider CHEMISTRY ORDERAB LES * CBC (with Diff) (12/20/2022) Pathologist [facility] WBC 8 Hemoglobin 9.8 Hematocrit 30.3 Platelets 264 Neutr Abs (ANC) 5.61 Blood 12/20/2022 Historical Provider HEMATOLOGY ORDERA BLES documented in this encounter Visit Diagnoses Diagnosis 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
--- OUTSIDE RECORDS SUMMARY | 2023-09-17 01:34 | XMS_ITS | Encounter Summary ---
[place] [address] Care Team Providers Care Farm Helper Name Role Phone Frederick Meade MD Primary Care Provider [phone] [phone] Reason for Visit * Diagnostic Test (Routine) - Closed Specialty Diagnoses / Procedures Referred By Contac t Referred To Contact Radiology Diagnoses 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 Procedures NM PET CT Standard Plus Extremities and Head Yael Merlos MACHINE CLIPPER [facility] [place] [address] [place] [address] Referral ID Status Reason Start Date Expiration Date V isits Requested Visits Authorized [id number] Closed Specialty Service Requested 12/20/2022 06/19/2024 1 1 Encounter Details Date Type Department Care Team (Latest Contact Info) Description 01/05/2023 7:19 AM EST - 01/05/2023 11:59 PM [facility] [[email or web address] Hospital [place] [address] Yael Merlos MACHINE CLIPPER [facility] [place] [address] Discharge Disposition: Home Social History [...] Tablet Take 10 mg by mouth daily. diphenoxylate-atropin e (Lomotil) 2.5-0.025 mg tablet Take 1 tablet by mouth 4 times daily as needed for Diarrhea. lactobacillus (BACID) Capsule Take 1 tablet by mouth daily. Psyllium Seed-Sucrose (0) Powder Take by mouth 2 times daily as needed. allopurinoL (Zyloprim) 100 mg tablet Take 200 mg by mouth daily. amLODIPine (Norvasc) 5 mg tablet Take 5 mg by mouth daily. [employer] ULTRA BLUE TEST STRIP Strip USE TO [...] Chewable Take 81 mg by mouth daily. vancomycin (Vancocin) 125 mg capsule Take 1 capsule by mouth 2 times daily for 90 days. 180 capsule 2 11/29/2022 02/27/2023 tamsulosin (Flomax) 0.4 mg capsule Take 0.4 mg by mouth daily. 08/22/2023 acyclovir (Zovirax) 400 mg tablet Take 1 tablet by mouth 2 times daily. 60 tablet 5 10/17/2022 03/14/2023 predniSONE (Deltasone) 50 mg tablet Take 2 tablets by mouth daily. Days 2-5 of each chemo cycle 8 tablet 5 10/17/2022 03/14/2023 ferrous sulfate 325 mg (65 mg iron) TabletIndications:lynn e two tabs at breakfast Take 325 mg by mouth every other day. Indications: take two tabs at breakfast 01/31/2023 documented as of this encounter Plan of Treatment Upcoming Encounters Date Type Department Care Team (Late st Contact Info) Description 09/19/2023 8:00 AM EDT Infusion Hematology Oncology at [address] [address] 09/21/2023 9:30 AM EDT Office Visit Hematology [place] [address] Micha Givens Jr., MD [facility] DR [place] [address] 09/21/2023 10:30 AM EDT Clinical Support Hematology [place] [address] Danii Her RN 09/26/2023 8:30 AM EDT Infusion Hematology Oncology at [address] [address] 10/03/2023 9:00 AM EDT Office Visit Hematology/Oncology at [address] [phone] Adrianne Ramon MD [facility] DR [place] [address] Yael Merlos APRN [facility] [place] [address] 10/03/2023 9:30 AM EDT Infusion Hematology Oncology at [address] [phone] 10/10/2023 8:30 AM EDT Infusion Hematology Oncology at [address] [address] documented as of this encounter Procedures Procedure Name Priority Date/Time Associated Diagnosis Comments NM PET CT STANDARD PLUS EXTREMITIES AND HEAD Routine 01/05/2023 9:05 AM EST 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 POCT GLUCOSE Routine 01/05/2023 7:26 AM EST documented in this encounter Results * POCT Glucose (01/05/2023 7:26 AM EST) POC Glucose 124 65 - 199 mg/dL [facility] Comment: Supplemental ranges: <140 mg/dL before meals <180 mg/dL all other times of the day Blood 01/05/2023 7:26 AM EST 01/05/2023 7:26 AM EST Yael Merlos APRN POINT OF CARE TEST ORDERABLES [facility] [place] [address] documented in this encounter Visit Diagnoses Not on filedocumented in this encounter Care Teams Farm Helper Relationship Specialty Start Date End Date Frederick Meade MD [address] [place] [address] PCP - General Family Medicine 11/29/17 documented as of this encounter
--- OUTSIDE RECORDS SUMMARY | 2023-09-17 01:34 | XMS_ITS | Encounter Summary ---
[place] [address] Care Team Providers Care Gunner'S Mate M Name Role Phone Frederick Meade MD Primary Care Provider [phone] [phone] Reason for Referral * Diagnostic Test (Routine) - Closed Specialty Diagnoses / Procedures Referred By Contac t Referred To Contact Radiology Diagnoses 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 Procedures NM PET CT Skull Base to Mid-thigh Yael Merlos APRN [facility] [place] [address] [place] [address] Referral ID Status Reason Start Date Expiration Date V isits Requested Visits Authorized [id number] Closed Specialty Service Requested 01/15/2023 07/15/2024 1 1 Encounter Details Date Type Department Care Team (Late st Contact Info) Description 01/15/2023 Orders Only Hematology [place] [address] Yael Merlos APRN [facility] [place] [address] Diffuse large B-cell lymphoma of [...] 8:00 AM EDT Infusion Hematology Oncology at [address] [phone] 09/21/2023 9:30 AM EDT Office Visit Hematology [place] [address] Micha Givens Jr., MD [facility] DR [place] [address] 09/21/2023 10:30 AM EDT Clinical Support Hematology [place] [address] Danii Her RN 09/26/2023 8:30 AM EDT Infusion Hematology Oncology at [address] [phone] 10/03/2023 9:00 AM EDT Office Visit Hematology/Oncology at [address] [phone] Adrianne Ramon MD [facility] DR [place] [address] Yael Merlos APRN [facility] DR [place] [address] 10/03/2023 9:30 AM EDT Infusion Hematology Oncology at [address] [phone] 10/10/2023 8:30 AM EDT Infusion Hematology Oncology at [address] [phone] documented as of this encounter Results * NM PET CT [...] who have questions please contact the health social worker palliative care that requested your imaging first. ? Electronically signed by: Tracey Flood MD, [facility] ??([phone]), at 03/08/2023 11:33 AM Narrative 03/08/2023 11:33 AM EST EXAMINATION: NM PET CT STANDARD SKULL BASE TO MID-THIGH CLINICAL HISTORY: Hematologic malignancy, assess treatment response History of diffuse large B-cell lymphoma, status post 6 cycles of RCHOP. TECHNIQUE: Following IV injection of 82-xxpljk-0-deoxyglucose (FDG) a standard uptake of approximately 60 [...] of RCHOP. TECHNIQUE: Following IV injection of 29-xndqhm-7-deoxyglucose (FDG) astandard uptake of approximately 60 minutes, [...] patients who have questions please contactthe health social worker palliative care that requested your imaging first. 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
--- OUTSIDE RECORDS SUMMARY | 2023-09-17 01:34 | XMS_ITS | Encounter Summary ---
Author Organization [facility] [place] [address] Care Team Providers Care Drafter (Cad) Electronic Name Role Phone Frederick Meade MD Primary Care Provider [phone] [phone] Encounter Details Date Type Department Care Team (Latest Contact Info) Description 03/14/2023 Travel Social History Tobacco Use Types Packs/Day [...] place to sleep or slept in a prison (including now)? No 10/11/2022 Sex and Gender Information Value Date Recorded Sex Assigned at Not on file Gender Identity Not on file Sexual Orientation Not on file documented as of this encounter Plan of Treatment Upcoming Encounters Date Type Department Care Team (Late st Contact Info) Description 09/19/2023 8:00 AM EDT Infusion Hematology Oncology at [address] [phone] 09/21/2023 9:30 AM EDT Office Visit [place] [address] Micha Givens Jr., MD [facility] [place] [address] 09/21/2023 10:30 AM EDT Clinical Support [place] [address] Danii Her RN 09/26/2023 8:30 AM EDT Infusion Hematology Oncology at [address] [phone] 10/03/2023 9:00 AM EDT Office Visit Hematology/Oncology at [address] [phone] Adrianne Ramon MD [facility] [place] [address] Yael Merlso APRN [facility] [place] [address] 10/03/2023 9:30 AM EDT Infusion Hematology Oncology at [address] [phone] 10/10/2023 8:30 AM EDT Infusion Hematology Oncology at [address] [phone] documented as of this encounter Visit Diagnoses Not on filedocumented in this encounter Care Teams Drafter (Cad) Electronic Relationship Specialty Start Date End Date Frederick Meade MD [address] [place] [address] PCP - General Family Medicine 11/29/17 documented as of this encounter
--- OUTSIDE RECORDS SUMMARY | 2023-09-17 01:34 | XMS_ITS | Encounter Summary ---
Author Organization [facility] [place] [address] Care Team Providers Care Fire Chief'S Aide Name Role Phone Frederick Meade MD Primary Care Provider [phone] [phone] Reason for Visit * Reason Comments Chemotherapy * Treatment/Therapy Plan Authorization (Routine) - Closed Specialty Diagnoses / Procedures Referred By Contac t Referred To Contact Hematology and Oncology Diagnoses 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 Procedures TC PALONOSETRON HCL, 25MCG, INJECTION (ALOXI) TC APREPITANT, 1 MG, INJECTION TC RITUXIMAB-PVVR, BIOSIMILAR, (RUXIENCE), 10 MG, INJ TC DOXORUBICIN HCL, 10MG, INJECTION (ADRIAMYCIN) TC VINCRISTINE SULFATE, 1MG, INJECTION (ONCOVIN) TC CYCLOPHOSPHAMIDE, 100MG (CYTOXAN) Adrianne Ramon MD [facility] [address] [place] [address] [facility] [address] [place] [address] Referral ID Status Reason Start Date Expiration Date Visits Re quested Visits Authorized [id number] Closed 10/11/2022 10/11/2023 1 100 Encounter Details Date Type Department Care Team (Late st Contact Info) Description 12/20/2022 8:30 AM EDT Infusion Hematology Oncology at [address] [phone] 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 [...] place to sleep or slept in a fdc (including now)? No 10/11/2022 Sex and Gender Information Value Date Recorded Sex Assigned at Not on file Gender Identity Not on file Sexual Orientation Not on file documented as of this encounter Progress Notes * Joaquina Haque, RN - 12/20/2022 8:30 AM EDT INFUSION THERAPY ADMINISTRATION NOTES DIAGNOSIS: DLBCL CYCLE #: C4D1 REASON FOR VISIT: IGOR Grider offers no complaints, he met with Dr. Ramon prior to infusion, ready for treatment. OBJECTIVE LAB DATA: completed 12/20 at [facility] Pre administration: Chemotherapy orders independently verified for drug name, route, and dosage per patient's height, weight and BSA by JOAQUINA HAQUE, OSCAR and pharmacist onsite. REACTIONS (DESCRIPTION, TIME, INTERVENTION AND EFFECTIVENESS) none ASSESSMENT Rituxan administered at rapid rate Cheo was awake, alert and he tolerated treatment well. OnPro applied to right arm at . Due to start deploying dose of medication at 1700 . Patient instructed to remove at when meter reads empty and light is solid green. Verbal and written instruction given to patient. PLAN Return to clinic per routine. documented in this encounter Plan of Treatment Upcoming Encounters Date Type Department Care Team (Late st Contact Info) Description 09/19/2023 8:00 AM EDT Infusion Hematology Oncology at [address] [phone] 09/21/2023 9:30 AM EDT Office Visit Hematology [place] [address] Micha Givens Jr., MD [facility] [address] [place] [address] 09/21/2023 10:30 AM EDT Clinical Support Hematology [place] [address] Danii Her RN 09/26/2023 8:30 AM EDT Infusion Hematology Oncology at [address] [phone] 10/03/2023 9:00 AM EDT Office Visit Hematology/Oncology at [address] [phone] Adrianne Ramon MD [facility] DR [place] [address] Yael Merlos APRN [facility] [place] [address] 10/03/2023 9:30 AM EDT Infusion Hematology Oncology at [address] [phone] 10/10/2023 8:30 AM EDT Infusion Hematology Oncology at [address] [phone] documented as of this encounter Visit Diagnoses Diagnosis 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 documented in this encounter Administered Medications Inactive Administered Medications - up to 3 most recent administrations Medication Order MAR Action Action Date Dose Rate Site acetaminophen (Tylenol) tablet 650 mg 650 mg, Oral, ONCE, 1 dose, On Sun12/20/22 at 0930, Administer prior to riTUXimab., Routine Given 12/20/2022 9:44 AM EDT 650 mg aprepitant (CINVANTI) injection Emulsion 130 mg 130 mg, Intravenous, Administer over 2 Minutes, ONCE, 1 dose, On Sun12/20/22 at 0930, Alternative administration of IV push over 2 minutes is a recommendation from the fashion designer. Administer prior to chemotherapy., Routine Given 12/20/2022 9:47 AM EDT 130 mg cyclophosphamide (Cytoxan) 1,000 mg in sodium chloride 0.9% 300 mL infusion 1,000 mg, Intravenous, ONCE, 1 dose, On Sun12/20/22 at 1030, Administer over 30 Minutes, Warning Vesicant/Irritant Medication Dose Ordered = 1065 mg (500 mg/m2). Pharmacist rounded dose per procedure. New Bag 12/20/2022 1:17 PM EDT 1,000 mg 600 mL/hr diphenhydrAMINE (Benadryl) capsule 50 mg 50 mg, Oral, ONCE, 1 dose, On Sun12/20/22 at 0930, Administer prior to riTUXimab, Routine Given 12/20/2022 9:44 AM EDT 50 mg DOXOrubicin (Adriamycin) injection 71 mg 71 mg (rounded from 70.9999 mg = 33.3333 mg/m2/dose ? 2.13 m2 Treatment Plan BSA from Recorded weight), Intravenous, ONCE, 1 dose, On Sun12/20/22 at 1030, Warning Vesicant/Irritant Medication Administer each syringe over a minimum of 3 minutes. Given 12/20/2022 1:08 PM EDT 71 mg heparin (pf) (porcine) (100 units/mL) flush 5 mL syringe 500 Units 500 Units, Intravenous, ONCE PRN, Starting on Sun12/20/22 at 0913, Until Sun12/20/22 at 1743, Line Care, Refer to Intravenous (IV) Procedure: Accessing Implanted Vascular Access Devices (654) procedure and/or Intravenous (IV) Job Aid: Adult Flushing & Catheter Care (5909) job aid for additional information regarding guidelines and administration., Routine Given 12/20/2022 1:56 PM EDT 500 Units palonosetron (Aloxi) (0.05 mg/mL) injection 0.25 mg 0.25 mg, Intravenous, ONCE, 1 dose, On Sun12/20/22 at 0930, Administer over 30 seconds., Routine Given 12/20/2022 9:47 AM EDT 0.25 mg pegfilgrastim (Neulasta Onpro) (6 mg/0.6 mL) injection kit 6 mg 6 mg, Subcutaneous, ONCE, 1 dose, On Sun12/20/22 at 0930, Allow the prefilled syringe co-packaged with the on-body injector to reach room temperature at least 30 minutes prior to administration., Routine, This agent is restricted to outpatient use. Is this drug being given as an outpatient? Yes Given 12/20/2022 1:50 PM EDT 6 mg Left Arm predniSONE (Deltasone) tablet 100 mg 100 mg, Oral, ONCE, 1 dose, On Sun12/20/22 at 0930, Give first dose prior to riTUXimab, Routine Given 12/20/2022 9:44 AM EDT 100 mg riTUXimab-pvvr (Ruxience) 800 mg in sodium chloride 0.9% 400 mL infusion 800 mg, Intravenous, ONCE, 1 dose, On Sun12/20/22 at 1030, Administer Per Protocol, Is this product being used for treatment of malignant indication? Yes, Patient is a candidate for rapid infusion riTUXimab? Yes New Bag 12/20/2022 11:11 AM EDT 800 mg sodium chloride 0.9% infusion 150 mL/hr, Intravenous, CONTINUOUS, Starting on Sun12/20/22 at 0930, Until Sun12/20/22 at 1743 Continued Bag 12/20/2022 12:49 PM EDT 150 mL/hr 150 mL/hr New Bag 12/20/2022 9:52 AM EDT 150 mL/hr 150 mL/hr vinCRIStine (Oncovin) 1 mg in sodium chloride 0.9% 26 mL infusion 1 mg, Intravenous, ONCE, 1 dose, On Sun12/20/22 at 1030, Administer over 5 Minutes, Maximum dose 2 mg Administer over 5 to 10 minutes via gravity concurrently with NS free flowing. Warning Vesicant/Irritant Medication New Bag 12/20/2022 1:11 PM EDT 1 mg 312 mL/hr documented in this encounter Care Teams Fire Chief'S Aide Relationship Specialty Start Date End Date Frederick Meade MD [address] [place] [address] PCP - General Family Medicine 11/29/17 documented as of this encounter
--- OUTSIDE RECORDS SUMMARY | 2023-09-17 01:34 | XMS_ITS | Encounter Summary ---
Author Organization [place] [address] Care Team Providers Care Otolaryngology Physician Name Role Phone Frederick Meade MD Primary Care Provider [phone] [phone] Encounter Details Date Type Department Care Team (Latest Contact Info) Description 12/20/2022 Travel Social History Tobacco Use Types Packs/Day [...] place to sleep or slept in a long term (including now)? No 10/11/2022 Sex and Gender Information Value Date Recorded Sex Assigned at Not on file Gender Identity Not on file Sexual Orientation Not on file documented as of this encounter Plan of Treatment Upcoming Encounters Date Type Department Care Team (Late st Contact Info) Description 09/19/2023 8:00 AM EDT Infusion Hematology Oncology at [address] [phone] 09/21/2023 9:30 AM EDT Office Visit Hematology [place] [address] Micha Givens Jr., MD [facility] [place] [address] 09/21/2023 10:30 AM EDT Clinical Support Hematology [place] [address] Danii Her RN 09/26/2023 8:30 AM EDT Infusion Hematology Oncology at [address] [phone] 10/03/2023 9:00 AM EDT Office Visit Hematology/Oncology at [address] [phone] Adrianne Ramon MD [facility] [place] [address] Yael Merlos APRN [facility] [place] [address] 10/03/2023 9:30 AM EDT Infusion Hematology Oncology at [address] [phone] 10/10/2023 8:30 AM EDT Infusion Hematology Oncology at [address] [phone] documented as of this encounter Visit Diagnoses Not on filedocumented in this encounter Care Teams Otolaryngology Physician Relationship Specialty Start Date End Date Frederick Meade MD [address] [place] [address] PCP - General Family Medicine 11/29/17 documented as of this encounter"
--- OUTSIDE RECORDS SUMMARY | 2023-09-17 01:34 | XMS_ITS | Encounter Summary ---
Author Organization [place] [address] Care Team Providers Care Sales And Leasing Agent Name Role Phone Frederick Meade MD Primary Care Provider [phone] Encounter Details Date Type Department Care Team (Latest Contact Info) Description 03/06/2023 Travel Social History Tobacco Use Types Packs/Day [...] 8:00 AM EDT Infusion Hematology Oncology at [address] [phone] 09/21/2023 9:30 AM EDT Office Visit Hematology [place] [address] Micha Givens Jr., MD [facility] [place] [address] 09/21/2023 10:30 AM EDT Clinical Support Hematology [place] [address] Danii Her RN 09/26/2023 8:30 AM EDT Infusion Hematology Oncology at [address] [phone] 10/03/2023 9:00 AM EDT Office Visit Hematology/Oncology at [address] [phone] Adrianne Ramon MD [facility] [place] [address] Yael Merlos APRN [facility] [place] [address] 10/03/2023 9:30 AM EDT Infusion Hematology Oncology at [address] [phone] 10/10/2023 8:30 AM EDT Infusion Hematology Oncology at [address] [phone] documented as of this encounter Visit Diagnoses Not on filedocumented in this encounter Care Teams Sales And Leasing Agent Relationship Specialty Start Date End Date Frederick Meade MD [address] [place] [address] PCP - General Family Medicine 11/29/17 documented as of this encounter
--- OUTSIDE RECORDS SUMMARY | 2023-09-17 01:34 | XMS_ITS | Encounter Summary ---
[place] [address] Care Team Providers Care Insole Buffer Name Role Phone Frederick Meade MD Primary Care Provider [phone] Reason for Referral * Diagnostic Test (Routine) - Closed Specialty Diagnoses / Procedures Referred By Contac t Referred To Contact Radiology Diagnoses 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 Procedures IR Mediport Removal Yael Merlos WOOL WASHING MACHINE OPERATOR [facility] HEMATOLOGY [place] [address] [facility] [place] [address] Referral ID Status Reason Start Date Expiration Date V isits Requested Visits Authorized [id number] Closed Specialty Service Requested 03/15/2023 09/12/2024 1 1 Encounter Details Date Type Department Care Team (Late st Contact Info) Description 03/15/2023 Orders Only Hematology [place] [address] Yael Merlos WOOL WASHING MACHINE OPERATOR [facility] HEMATOLOGY [place] [address] Diffuse large B-cell lymphoma of [...] 8:00 AM EDT Infusion Hematology Oncology at [address] [phone] 09/21/2023 9:30 AM EDT Office Visit Hematology [place] [address] Micha Givens Jr., MD [facility] DR HEMATOLOGY [place] [address] 09/21/2023 10:30 AM EDT Clinical Support Hematology [place] [address] Danii Her RN 09/26/2023 8:30 AM EDT Infusion Hematology Oncology at [address] [address] 10/03/2023 9:00 AM EDT Office Visit Hematology/Oncology at [address] [phone] Adrianne Ramon MD [facility] DR HEMATOLOGY [place] [address] Yael Merlos APRN [facility] DR HEMATOLOGY [place] [address] 10/03/2023 9:30 AM EDT Infusion Hematology Oncology at [address] [phone] 10/10/2023 8:30 AM EDT Infusion Hematology Oncology at [address] [phone] documented as of this encounter Results * IR Mediport Removal (03/29/2023 2:32 PM EST) Anatomical Region Laterality Modality X-Ray Angiograph y Narrative 2023 1:04 PM EST Interventional Radiology Procedure Note Procedure: Chest port explant Indication: Lymphoma, therapy complete, discontinue [facility] central venous access for chemotherapy Pre-procedure: Informed consent for the procedure including risks, benefits and alternatives was obtained. Active time-out was performed prior to the procedure. Maximum sterile barrier technique was used throughout the procedure. Sedation: None. Pulse, pressure, and oxygen saturation were continuously monitored. Technique: Local anesthetic was administered at the port site. A 2 cm transverse incision was made superior to the port. Catheter was removed from the vein via the subcutaneous tunnel. Hemostasis was achieved by applying direct pressure to the right neck. Blunt and sharp dissection used to remove, intact, the single-lumen port. Removal of the port reservoir, hub, and catheter were confirmed by their identification outside the patient. The wound was copiously irrigated with normal saline. The pocket was closed using a two-layer technique with 2-0 vicryl deep interrupted and 4-0 vicryl running subcuticular sutures. Skin closed with dermabond. Medications: Lidocaine 1% 10 mL subcut; lidocaine 2% with epinephrine 1:100,000 10 mL subcut Estimated blood loss: 5 mL Complications: No immediate Impression: En bloc explantation of single-lumen right subcutaneous venous port with all components accounted for. 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
--- OUTSIDE RECORDS SUMMARY | 2023-09-17 01:34 | XMS_ITS | Encounter Summary ---
Author Organization [facility] [place] [address] Care Team Providers Care Inclusion Teacher Name Role Phone Frederick Meade MD Primary Care Provider [phone] [phone] Reason for Visit * Reason Comments Chemotherapy [...] TC CYCLOPHOSPHAMIDE, 100MG (CYTOXAN) Adrianne Ramon MD [facility] DR [place] [address] [facility] [address] [place] [phone] Referral ID Status Reason Start Date Expiration Date Visits Re quested Visits Authorized [id number] Closed 10/11/2022 10/11/2023 1 100 Encounter Details Date Type Department Care Team (Late st Contact Info) Description 01/31/2023 9:00 AM EST Infusion Hematology Oncology at [address] [phone] Diffuse large B-cell lymphoma of [...] Progress Notes * Joaquina Haque, RN - 01/31/2023 9:00 AM EST INFUSION THERAPY ADMINISTRATION NOTES DIAGNOSIS: DLBCL CYCLE #: C6D1 REASON FOR VISIT: IGOR SCOTT Cheo offers no complaints, he met with provider prior to infusion, ready for treatment. OBJECTIVE LAB DATA: completed today at [facility] Pre administration: Chemotherapy orders independently verified for drug name, route, and dosage per patient's height, weight and BSA by JOAQUINA D COLGROVE, RN and pharmacist onsite. REACTIONS (DESCRIPTION, TIME, INTERVENTION AND EFFECTIVENESS) none ASSESSMENT Rituxan administered at rapid rate Cheo was awake, alert and he tolerated treatment well. OnPro applied to right arm at 1257 . Due to start deploying dose of medication tomorrow. Patient instructed to remove at when meter reads empty and light is solid green. Verbal and written instruction given to patient. PLAN Return to clinic per routine. documented in this encounter Plan of Treatment Upcoming Encounters Date Type Department Care Team (Late st Contact Info) Description 09/19/2023 8:00 AM EDT Infusion Hematology Oncology at [address] [phone] 09/21/2023 9:30 AM EDT Office Visit Hematology [place] [address] Micha Givens Jr., MD [facility] DR [place] [address] 09/21/2023 10:30 AM EDT Clinical Support Hematology [place] [address] Danii Her RN 09/26/2023 8:30 AM EDT Infusion Hematology Oncology at [address] [phone] 10/03/2023 9:00 AM EDT Office Visit Hematology/Oncology at [address] [phone] Adrianne Ramon MD [facility] [place] [address] Yael Merlos APRN [facility] [place] [address] 10/03/2023 9:30 AM EDT Infusion Hematology Oncology at [address] [phone] 10/10/2023 8:30 AM EDT Infusion Hematology Oncology at [address] [phone] documented as of this encounter Visit Diagnoses Diagnosis 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 documented in this encounter Administered Medications Inactive Administered Medications - up to 3 most recent administrations Medication Order MAR Action Action Date Dose Rate Site acetaminophen (Tylenol) tablet 650 mg 650 mg, Oral, ONCE, 1 dose, On Sun01/31/23 at 0930, Administer prior to riTUXimab., Routine Given 01/31/2023 9:34 AM EST 650 mg aprepitant (CINVANTI) injection Emulsion 130 mg 130 mg, Intravenous, Administer over 2 Minutes, ONCE, 1 dose, On Sun01/31/23 at 0930, Alternative administration of IV push over 2 minutes is a recommendation from the manager maintenance. Administer prior to chemotherapy., Routine Given 01/31/2023 9:34 AM EST 130 mg cyclophosphamide (Cytoxan) 1,500 mg in sodium chloride 0.9% 325 mL infusion 1,500 mg, Intravenous, ONCE, 1 dose, On Sun01/31/23 at 1030, Administer over 30 Minutes, Warning Vesicant/Irritant Medication Dose Ordered = 1598 mg (750 mg/m2). Pharmacist rounded dose per procedure. New Bag 01/31/2023 12:15 PM EST 1,500 mg 650 mL/hr diphenhydrAMINE (Benadryl) capsule 50 mg 50 mg, Oral, ONCE, 1 dose, On Sun01/31/23 at 0930, Administer prior to riTUXimab, Routine Given 01/31/2023 9:34 AM EST 50 mg DOXOrubicin (Adriamycin) injection 106.5 mg 106.5 mg (50 mg/m2/dose ? 2.13 m2 Treatment Plan BSA from Recorded weight), Intravenous, ONCE, 1 dose, On Sun01/31/23 at 1030, Warning Vesicant/Irritant Medication Administer each syringe over a minimum of 3 minutes. Given 01/31/2023 12:06 PM EST 106.5 mg heparin (pf) (porcine) (100 units/mL) flush 5 mL syringe 500 Units 500 Units, Intravenous, ONCE PRN, Starting on Sun01/31/23 at 0912, Until Sun01/31/23 at 1712, Line Care, Refer to Intravenous (IV) Procedure: Accessing Implanted Vascular Access Devices (654) procedure and/or Intravenous (IV) Job Aid: Adult Flushing & Catheter Care (1573) job aid for additional information regarding guidelines and administration., Routine Given 01/31/2023 12:58 PM EST 500 Units palonosetron (Aloxi) (0.05 mg/mL) injection 0.25 mg 0.25 mg, Intravenous, ONCE, 1 dose, On Sun01/31/23 at 0930, Administer over 30 seconds., Routine Given 01/31/2023 9:34 AM EST 0.25 mg pegfilgrastim (Neulasta Onpro) (6 mg/0.6 mL) injection kit 6 mg 6 mg, Subcutaneous, ONCE, 1 dose, On Sun01/31/23 at 1230, Allow the prefilled syringe co-packaged with the on-body injector to reach room temperature at least 30 minutes prior to administration., Routine, This agent is restricted to outpatient use. Is this drug being given as an outpatient? Yes Given 01/31/2023 12:57 PM EST 6 mg Right Arm predniSONE (Deltasone) tablet 100 mg 100 mg, Oral, ONCE, 1 dose, On Sun01/31/23 at 0930, Give first dose prior to riTUXimab, Routine Given 01/31/2023 9:34 AM EST 100 mg riTUXimab-pvvr (Ruxience) 800 mg in sodium chloride 0.9% 400 mL infusion 800 mg, Intravenous, ONCE, 1 dose, On Sun01/31/23 at 1030, Dose Ordered = 798 mg (375 mg/m2). Pharmacist rounded dose per procedure. Administer Per Protocol, Is this product being used for treatment of malignant indication? Yes, Patient is a candidate for rapid infusion riTUXimab? Yes New Bag 01/31/2023 10:11 AM EST 800 mg sodium chloride 0.9 % (flush) (BD PosiFlush Normal Saline 0.9) flush 5-20 mL 5-20 mL, Intravenous, EVERY 1 MIN PRN, Starting on Sun01/31/23 at 0912, Until Sun01/31/23 at 1712, Line Care, Flush pertains to all indwelling lines. Flush per protocol found in the job aid using the link provided on this medication record. Refer to Intravenous (IV) Job Aid: Adult Flushing & Catheter Care (7879) job aid for additional information regarding guidelines and administration., Routine Given 01/31/2023 12:57 PM EST 20 mLs sodium chloride 0.9% infusion 150 mL/hr, Intravenous, CONTINUOUS, Starting on Sun01/31/23 at 0930, Until Sun01/31/23 at 1712 New Bag 01/31/2023 9:40 AM EST 150 mL/hr 150 mL/hr vinCRIStine (Oncovin) 1 mg in sodium chloride 0.9% 26 mL infusion 1 mg, Intravenous, ONCE, 1 dose, On Sun01/31/23 at 1030, Administer over 5 Minutes, Maximum dose 2 mg Administer over 5 to 10 minutes via gravity concurrently with NS free flowing. Warning Vesicant/Irritant Medication New Bag 01/31/2023 12:09 PM EST 1 mg 312 mL/hr documented in this encounter Care Teams Inclusion Teacher Relationship Specialty Start Date End Date Frederick Meade MD [address] [place] [address] PCP - General Family Medicine 11/29/17 documented as of this encounter
--- OUTSIDE RECORDS SUMMARY | 2023-09-17 01:34 | XMS_ITS | Encounter Summary ---
Author Organization [facility] [place] [address] Care Team Providers Care Executive Manager Name Role Phone Frederick Meade MD Primary Care Provider [phone] Encounter Details Date Type Department Care Team (Latest Contact Info) Description 03/29/2023 Travel Social History Tobacco Use Types Packs/Day [...] place to sleep or slept in a detention (including now)? No 10/11/2022 Sex and Gender Information Value Date Recorded Sex Assigned at Not on file Gender Identity Not on file Sexual Orientation Not on file documented as of this encounter Plan of Treatment Upcoming Encounters Date Type Department Care Team (Late st Contact Info) Description 09/19/2023 8:00 AM EDT Infusion Hematology Oncology at [address] [phone] 09/21/2023 9:30 AM EDT Office Visit Hematology [place] [address] Micha Givens Jr., MD [facility] HEMATOLOGY [place] [address] 09/21/2023 10:30 AM EDT Clinical Support Hematology [place] [address] Danii Her RN 09/26/2023 8:30 AM EDT Infusion Hematology Oncology at [address] [phone] 10/03/2023 9:00 AM EDT Office Visit Hematology/Oncology at [address] [phone] Adrianne Ramon MD [facility] HEMATOLOGY [place] [address] Yael Merlos APRN [facility] HEMATOLOGY [place] [address] 10/03/2023 9:30 AM EDT Infusion Hematology Oncology at [address] [phone] 10/10/2023 8:30 AM EDT Infusion Hematology Oncology at [address] [phone] documented as of this encounter Visit Diagnoses Not on filedocumented in this encounter Care Teams Executive Manager Relationship Specialty Start Date End Date Frederick Meade MD [address] [place] [address] PCP - General Family Medicine 11/29/17 documented as of this encounter
--- OUTSIDE RECORDS SUMMARY | 2023-09-17 01:34 | XMS_ITS | Encounter Summary ---
Author Organization [facility] Address [facility] [address] Care Team Providers Care Senior It Architect Name Role Phone Frederick Meade MD Primary Care Provider [phone] Encounter Details Date Type Department Care Team (Late st Contact Info) Description 01/31/2023 Notes Only Hematology/Oncology at [address] [phone] Shelley Cason, [facility] OFFICE OF CARE MANAGEMENT Social History Tobacco Use Types Packs/Day Years [...] as of this encounter Progress Notes * Shelley Cason MSW - 01/31/2023 9:42 AM EST Follow up with Cheo and his during his infusion visit. They indicated this is his last infusion. He expects a scan in 21 days which will really tell how effective the treatments have been. They try to take each day as it comes and not get to far ahead of themselves. Both expressed appreciation for the care they have received from their treatment team. They also shared how involved and supportive their family has been. Offered support. Cheo and his did not identify any new needs today. ELECTRICAL CONTACTS ADJUSTER will continue as a resource for them. Brief assessment Supportive Counseling documented in this encounter Plan of Treatment Upcoming Encounters Date Type Department Care Team (Late st Contact Info) Description 09/19/2023 8:00 AM EDT Infusion Hematology Oncology at [address] [phone] 09/21/2023 9:30 AM EDT Office Visit Hematology [place] [address] Micha Givens Jr., MD [facility] DR HEMATOLOGY [place] [address] 09/21/2023 10:30 AM EDT Clinical Support Hematology [place] [address] Danii Her RN 09/26/2023 8:30 AM EDT Infusion Hematology Oncology at [address] [phone] 10/03/2023 9:00 AM EDT Office Visit Hematology/Oncology at [address] [phone] Adrianne Ramon MD [facility] DR HEMATOLOGY [place] [address] Yael Merlos APRN [facility] DR HEMATOLOGY [place] [address] 10/03/2023 9:30 AM EDT Infusion Hematology Oncology at [address] [phone] 10/10/2023 8:30 AM EDT Infusion Hematology Oncology at [address] [phone] documented as of this encounter Visit Diagnoses Not on filedocumented in this encounter Care Teams Senior It Architect Relationship Specialty Start Date End Date Frederick Meade MD [address] [place] [address] PCP - General Family Medicine 11/29/17 documented as of this encounter
--- OUTSIDE RECORDS SUMMARY | 2023-09-17 01:34 | XMS_ITS | Encounter Summary ---
[place] [address] Care Team Providers Care Circulation Analyst Name Role Phone Frederick Meade MD Primary Care Provider [phone] Reason for Visit * Diagnostic Test (Routine) - Closed Specialty Diagnoses / Procedures Referred By Contac t Referred To Contact Radiology Diagnoses 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 Procedures NM PET CT Skull Base to Mid-thigh Yael Merlos SAP ABAP PROGRAMMER [facility] [place] [address] [place] [address] Referral ID Status Reason Start Date Expiration Date V isits Requested Visits Authorized [id number] Closed Specialty Service Requested 01/15/2023 07/15/2024 1 1 Encounter Details Date Type Department Care Team (Latest Contact Info) Description 03/06/2023 7:52 AM EST - 03/06/2023 11:59 PM [facility] Hospital Encounter [place] [address] Yael Merlos [facility] [place] [address] Discharge Disposition: Home Social History [...] place to sleep or slept in a jail (including now)? No 10/11/2022 Sex and Gender [...] 8:00 AM EDT Infusion Hematology Oncology at [address] [phone] 09/21/2023 9:30 AM EDT Office Visit Hematology [place] [address] Micha Givens Jr., MD [facility] [place] [address] 09/21/2023 10:30 AM EDT Clinical Support Hematology [place] [address] Danii Her RN 09/26/2023 8:30 AM EDT Infusion Hematology Oncology at [address] [phone] 10/03/2023 9:00 AM EDT Office Visit Hematology/Oncology at [address] [phone] Adrianne Ramon MD [facility] [place] [address] Yael Merlos APRN [facility] [place] [address] 10/03/2023 9:30 AM EDT Infusion Hematology Oncology at [address] [phone] 10/10/2023 8:30 AM EDT Infusion Hematology Oncology at [address] [phone] documented as of this encounter Procedures Procedure Name Priority Date/Time Associated Diagnosis Comments NM PET CT SKULL BASE TO MID-THIGH ([facility]) Routine 03/06/2023 9:17 AM EST 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 POCT GLUCOSE Routine 03/06/2023 8:05 AM EST documented in this encounter Results * POCT Glucose (03/06/2023 8:05 AM EST) POC Glucose 126 65 - 199 mg/dL [facility] Comment: Supplemental ranges: <140 mg/dL before meals <180 mg/dL all other times of the day Blood 03/06/2023 8:05 AM EST 03/06/2023 8:05 AM EST Yael Merlos APRN POINT OF CARE TEST ORDERABLES [facility] [place] [address] documented in this encounter Visit Diagnoses Not on filedocumented in this encounter Care Teams Circulation Analyst Relationship Specialty Start Date End Date Frederick Meade MD [address] [place] [address] PCP - General Family Medicine 11/29/17 documented as of this encounter
--- OUTSIDE RECORDS SUMMARY | 2023-09-17 01:34 | XMS_ITS | Encounter Summary ---
Author Organization [facility] [place] [address] Care Team Providers Care Gutter Hanger Name Role Phone Frederick Meade MD Primary Care Provider [phone] Encounter Details Date Type Department Care Team (Latest Contact Info) Description 01/10/2023 Travel Social History Tobacco Use Types Packs/Day [...] AM EDT Infusion Hematology Oncology at [address] [phone] 09/21/2023 9:30 AM EDT Office Visit Hematology [place] [address] Micha Givens Jr., MD [facility] HEMATOLOGY AND [place] [address] 09/21/2023 10:30 AM EDT Clinical Support Hematology [place] [address] Danii Her RN 09/26/2023 8:30 AM EDT Infusion Hematology Oncology at [address] [phone] 10/03/2023 9:00 AM EDT Office Visit Hematology/Oncology at [address] [phone] Adrianne Ramon MD [facility] HEMATOLOGY AND [place] [address] Yael Merlos APRN [facility] HEMATOLOGY AND [place] [address] 10/03/2023 9:30 AM EDT Infusion Hematology Oncology at [address] [phone] 10/10/2023 8:30 AM EDT Infusion Hematology Oncology at [address] [phone] documented as of this encounter Visit Diagnoses Not on filedocumented in this encounter Care Teams Gutter Hanger Relationship Specialty Start Date End Date Frederick Meade MD [address] [place] [address] PCP - General Family Medicine 11/29/17 documented as of this encounter
--- OUTSIDE RECORDS SUMMARY | 2023-09-17 01:34 | XMS_ITS | Encounter Summary ---
Author Organization [facility] Address [facility] [place] [address] Care Team Providers Care Financial Aid Officer Name Role Phone Frederick Meade MD Primary Care Provider [phone] [phone] Encounter Details Date Type Department Care Team (Late st Contact Info) Description 12/06/2022 2:30 PM EDT TH Visit (TeleHealth) Hematology/Oncology at [address] [phone] Adrianne Ramon MD [facility] DR HEMAT[place] [address] 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 [...] Sign Reading Time Taken Comments Blood Pressure 132/73 12/06/2022 2:23 PM EDT Pulse 86 12/06/2022 2:23 PM EDT Temperature 36.5 ??C (97.7 ??F) 12/06/2022 2:23 PM ED T Respiratory Rate 16 12/06/2022 2:23 PM EDT Oxygen Saturation 96% 12/06/2022 2:23 PM EDT Inhaled Oxygen Concentration - - Weight 90.7 kg (200 lb) 12/06/2022 2:23 PM EDT Height - - Body Mass Index 31.91 11/29/2022 8:53 AM EDT documented in this encounter Progress Notes * Adrianne Ramon MD - 12/06/2022 3:30 PM EDT Hematology Clinic [facility] [place] [id number] HEMATOLOGY PATIENT EVALUATION Patient Active Problem List Diagnosis Abnormal echocardiogram 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 Anemia, iron deficiency Gout Malignant neoplasm of prostate I confirmed with the patient that this was a video or telephone encounter in lieu of an office visit. Charges may be incurred. Patient agreed and gave me permission to proceed. HISTORY OF PRESENT ILLNESS: Patient prefers to be called: Cheo Support person(s) : Claritza son Cheo It was my pleasure to meet Cheo Freire today. Cheo Freire is a 72 y.o. year old male being seen for evaluation of of newly diagnosed B cell lymphoma. he is referred in consultaion from Dr Lg Ramírez ENT. 4 week h/o of sinus swelling and then cervial LN and could not breath. ~2 weeks ago saw [facility] in [facility] and when to [facility]. No beds so sent to [facility] for [address] CAP, MRI,and [...] x7 days with nice response. Pathology from [facility] reports large B-cell lymphoma. Double expresser. FISH for translocations are pending. Tongue swelling. No wt loss. Eating and drinking OK. No fevers, infections, No NS. Pain in neck.Prednisone 60mg daily X 7 days. I feel great on prednisone last day of prednisone is today Took iron supplements per PCP - unclear cause. - last COLO at [facility] was 01/17/2012. INTERIM HISTORY OF PRESENT ILLNESS: Cheo returns to clinic today C#3 Day 8 follow up. He is doing so much better. No n/v, no constipation. No fevers. His bowel movements ~ daily are soft and semi formed without abdominal pain or bleeding. No fevers. Energy is improving though he continues to tire easily. No new concerns. Regular BM. More firm and normal color. No n/v. No neuropathy. Naps daily. Claritza is doing better emotionally,she appreciated Yael's support last week immensely. 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 6 mos of adjuvant Lupron. Total dose 79.2 Gy completed 01/26/15 09/29/22 Large B Cell lymphoma - biopsy of tongue and needle of cervical LN. FISH from [place] No MYCrearrangement and no fusion of MYC and IGH was observed, Initial EF 49% 10/18/22 C#1 RCHOP with neulasta - complicated with hospitalization and neutropenic fever (ANC = 20). . Sig diarrhea now resolved. (Cdiff neg X 1 in house) 11/06/22 EF 52% 11/08/22 C#2 RCHOP dose reduced Adriamycin and cytoxan at 66% due to neutropenia with cycle #1. Vinca 1mg. Neulasta support. Compicated by hospitalization for CDiff 11/29/22 C#3 RCHOP same dosing as above. PMHX: Pre- DM type II ~ 15 years - not requiring medications Hypertension 2014 Prostate CA - lupron and XRT Gout Diverticulosis without diverticulitis Anemia Cataract PSHX: Appendectomy as a child Tonsillectomy as a child 2013 bilateral ing surgery ROS Energy level: tires easiy and naps but overall doing better. Pain: No Appetite: improved Unexpected weight loss or gain: wt loss w/ admission, now stable Change in adenopathy or other masses: No Fevers/chills/sweats: see HPI Bruising/bleeding/melena: No Recent infections: see HPI Headaches: No Vision: No Hearing: No changes Sinus: No congestion/pain Seasonal Allergies: No Mouth sores: No Dentition: Good Swallowing: Normal GERD: No Nausea/vomiting: No diarrhea/constipation: improving s noted above SOB/CONTEH/pulmonary sx: No Cardiac symptoms: No sx: working with Urologist and PCP regarding symptoms BPH Skin rashes or petechiae: No Musculoskeletal complaints: No Extremities: Negative upper and lower bilaterally Neurologic symptoms: No Mental Status changes: No Mood: Normal Sleep: No - urinary frequency and hesitation. Nocturia q2 hours - he will discuss w/ Dr Mack. MEDS: Current Outpatient Medications Medication Instructions acyclovir [...] only 1 biologic. Son Cheo Freire. Enjoys [employer] [place], [employer], [employer], [employer]. [employer]. 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 Not a . ETOH: 1-3 beers per week Smoking: Quit 1985. Approximately 87-[id number]-[id number] history Vaping or electronic cigarettes: denies Chewing tobacco: denies Marijuana or other recreational drug use: none HIPPA Contact Permission: Claritza and Cheo. Also OK to talk to Delia adult children. OK to leave message with medical information on home or cell phone: home phone PHYSICAL EXAM BP 132/73 Pulse 86 Temp 36.5 ??C (97.7 ??F) (Temporal) Resp 16 Wt 90.7 kg (200 lb) SpO2 96% BMI 31.91 kg/m?? GENERAL: Cheo Freire is a delightful 72-year old male in [facility]. He is accompanied to the clinic by his today. ENT: Oral pharynx clear. Slight asymmetric smile and tongue deviates slightly to L LABORATORY STUDIES Recent Results (from the past 72 hour(s)) CBC (with Diff) Result Value Ref Range WBC 4.99 Hemoglobin 9.2 Hematocrit 27.9 Platelets 139 Neutr Abs (ANC) 3.74 Comprehensive metabolic panel (non-fasting) Result Value Ref Range Creatinine 0.9 Potassium 3.3 Total Bilirubin 0.3 Alk Phos 152 AST 14 ALT 17 LDH 155 Iron 34 TIBC 201 Iron Saturation 17 Ferritin 605 PATHOLOGY: Final Diagnosis A. Tongue base, left: -Large B-cell lymphoma, incompletely classified. See comment. Diagnosis Comment The findings are those of a large B-cell lymphoma that exhibits a non-germinal center immunophenotype and expresses Myc and BCL-2 protein (Double Expressor.) Flow cytometry ([id number]) supports this interpretation. FISH from [place] No MYC rearrangement and no fusion of MYC and IGH was observed, CD3 (SP7, Thermo Scientific) Background T-cells CD20 (L26, N[employer]) diffusely positive in Neoplastic B-cells PAX-5 (1EW, Leica) diffusely positive in Neoplastic B-cells CD10 (SP67, [employer]) Negative BCL-6 (G/191E/A8, [employer]) Positive MUM-1 (MUM1p, Dako) Positive Myc (Y69, Abcam) Positive BCL-2 Oncoprotein (124, [employer]) Positive Ki67 (MIB-1) (K2, Leica) Greater than 95% of cells in cycle Cyclin D1(SP4-R, [employer]) Negative SAPPHIRE JOSE ([id number], Leica) Negative. DIAGNOSTICS: 11/28/22 ECHO after C#2 EF 52% 11/06/22 ECHO after C#1 HOP EF = 52% Interpretation Summary LV systolic [...] which have a similar appearance of the retroph aryngeal abnormality and either represent extension of the [...] undergo investigation with ultrasound. CT CAP at [facility], report and images have been requested. ASSESSMENT/PLAN: Cheo Freire is a very pleasant 72 y.o. male referred by Dr Lg Ramírez of ENT for newly diagnosed large B cell lymphoma.. It was a pleasure to meet Cheo, his Claritza, and his son Cheo. Cheo returns today s/p 3 cycles of R-CHOP chemotherapy and recent hospital admission for c-diff as noted above. Despite Neulasta prophylaxis, cycle #1 was complicated by hospitalization with neutropenic fever and significant GI complications. Cycle #2 was administered with dose reduction in vincristine to 1 mg and Cytoxan and Adriamycin dosed at 66% of original dosing. We will continue with current dose modification and given his c-diff, will prophylax with Vanco 125mg PO BID throughout the duration of his chemotherapy (through C#6), Cardiac -Cheo has no cardiac history. No [...] Dr Barbosa recommended no changes in therapy. We will plan echocardiogram every 2 cycles. Next echo is due early Jan 2023 (2 mos from last ECHO on 11/28/22) Next ECHO at [facility] on 01/25/23 Suspected MEHNAZ - Hgb drop 3gm in last 2 weeks. No overt bleeding. Taking oral iron bid. 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 No COLO in last 10 years. Will follow. Labs seem most consistent with anemia of chronic disease. Recheck iron studies today c/w ACD. Will stop iron supplements as of 12/06/22 . Prostate Cancer - DAVE at this time Constipation - Vinca decreased to 1mg with cycle #2 and on C-diff colitis - unable to afford the remaining 5 day course of Dificid prescribed at discharge. Hehas been taking vanco 250 qid (not sure who prescribed 250mg but will complete this on 11/30/22. Then he will start prophy oral vanco 125mg po bid for duration of his hcemotherapy. No prophylactic broad spectrum antimicrobials. OK to decrease bleach wipe down of bathroom to once a day Probiotic daily Neuropathy - none to date. N/V - none to date. Plan: Vanco 125mg bid for duration of therapy. Completed treatment for pneumonia. RTC in 2 week for evaluation for C#4 of R-CHOP with modified dosing [Cytoxan and Adriamycin dose at66% with vincristine at 1 mg]. Neulasta support with Claritin daily x 7 days following administration to minimize bone pain - consider increasing C#4 to 80-90% depending on tolerance of C#3. Continue ACV 400mg po bid Given c-diff, will hold on prophylactic antibiotics; vanco prophy as above. Neulasta support. Repeat ECHO in ~ 2 mos - next due early Jan 2023 - booked for 01/25/[address] [facility] Stop iron, not MEHNAZ, has anemia of chronic disease. Chip COVID vaccine. He had flu shot. I discussed all of the above with the patient and all of his questions were answered. Support and counseling as appropriate. I confirmed with the patient that this was a video or telephone encounter in lieu of an office visit. Charges may be incurred. Patient agreed and gave me permission to proceed. Copy Frederick Meade MD documented in this encounter Plan of Treatment Upcoming Encounters Date Type Department Care Team (Late st Contact Info) Description 09/19/2023 8:00 AM EDT Infusion Hematology Oncology at [address] [phone] 09/21/2023 9:30 AM EDT Office Visit Hematology [place] [address] Micha Givens Jr., MD [facility] DR H[place]AT[place] [address] 09/21/2023 10:30 AM EDT Clinical Support Hematology [place] [address] Danii Her RN 09/26/2023 8:30 AM EDT Infusion Hematology Oncology at [address] [phone] 10/03/2023 9:00 AM EDT Office Visit Hematology/Oncology at [address] [phone] Adrianne Ramon MD [facility] DR H[place]ATOLOG[place] [address] Yael Merlos APRN [facility] [place] [address] 10/03/2023 9:30 AM EDT Infusion Hematology Oncology at [address] [phone] 10/10/2023 8:30 AM EDT Infusion Hematology Oncology at [address] [phone] documented as of this encounter Procedures Procedure Name Priority Date/Time Associated Diagnosis Comments CBC (WITH DIFF) Routine 12/06/2022 COMPREHENSIVE METABOLIC PANEL (NON-FASTING) Routine 12/06/2022 documented in this encounter Results * Comprehensive metabolic panel (non-fasting) (12/06/2022) Pathologist [facility] Creatinine 0.9 Potassium 3.3 Total Bilirubin 0.3 Alk Phos 152 AST 14 ALT 17 LDH 155 Iron 34 TIBC 201 Iron Saturation 17 Ferritin 605 Blood 12/06/2022 Historical Provider CHEMISTRY ORDERAB LES * CBC (with Diff) (12/06/2022) Pathologist [facility] WBC 4.99 Hemoglobin 9.2 Hematocrit 27.9 Platelets 139 Neutr Abs (ANC) 3.74 Blood 12/06/2022 Historical Provider HEMATOLOGY ORDERA BLES documented in this encounter Visit Diagnoses Diagnosis 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 documented in this encounter Care Teams Financial Aid Officer Relationship Specialty Start Date End Date Frederick Meade MD [address] [place] [address] PCP - General Family Medicine 11/29/17 documented as of this encounter
--- OUTSIDE RECORDS SUMMARY | 2023-09-17 01:34 | XMS_ITS | Encounter Summary ---
Author Organization [facility] Address [facility] [place] [address] Care Team Providers Care Mold Changer Name Role Phone Frederick Meade MD Primary Care Provider [phone] Reason for Visit * Reason Comments Follow-up Chemotherapy Encounter Details Date Type Department Care Team (Late st Contact Info) Description 01/31/2023 8:30 AM EST Office Visit Hematology/Oncology at [address] [phone] Yael Merlos, IMPORT COORDINATION AND PRODUCTION HEAD [facility] DR HEMATOLOGY [place] [address] 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; Iron deficiency anemia, unspecified iron deficiency anemia type; Clostridium difficile colitis Social History Tobacco Use Types Packs/Day Years [...] Sign Reading Time Taken Comments Blood Pressure 136/71 01/31/2023 8:15 AM EST Pulse 80 01/31/2023 8:15 AM EST Temperature 36.4 ??C (97.5 ??F) 01/31/2023 8:15 AM ES T Respiratory Rate 16 01/31/2023 8:15 AM EST Oxygen Saturation 97% 01/31/2023 8:15 AM EST Inhaled Oxygen Concentration - - Weight 91.6 kg (202 lb) 01/31/2023 8:15 AM EST Height 168.6 cm (5' 6.38) 01/31/2023 8:15 AM ES T Body Mass Index 32.23 01/31/2023 8:15 AM EST documented in this encounter Progress Notes * Yael Merlos, IMPORT COORDINATION AND PRODUCTION HEAD - 01/31/2023 8:30 AM EST Hematology Clinic [facility] [place] [address] HEMATOLOGY PATIENT EVALUATION PROBLEM LIST: Patient Active [...] ~2 weeks ago saw Express [facility] in [facility] and when to [facility]. No beds so sent to [facility] for [address] CAP, MRI,and [...] x7 days with nice response. Pathology from [facility] reports large B-cell lymphoma. Double expresser. FISH for translocations are pending. Tongue swelling. No wt loss. Eating and drinking OK. No fevers, infections, No NS. Pain in neck.Prednisone 60mg daily X 7 days. I feel great on prednisone last day of prednisone is today Took iron supplements per PCP - unclear cause. - last COLO at [facility] was 01/17/2012. INTERIM HISTORY OF PRESENT ILLNESS: Cheo returns to clinic today in routine follow-up for his newly diagnosed DLBCL and in anticipation of cycle #6 of R-CHOP chemotherapy. Since last seen in the clinic ~ 3 weeks ago, Cheo reports feeling quite well. He did not a bit more fatigue beginning around day 4 of the cycle and lasting for3-4 days for which he took a daily nap in the afternoon. He was expecting the possibility of more fatigue as Dr. Ramon increased the dose of Cytoxan and Adriamycin to 80% with cycle #5. Cheo denies fevers, chills, recurrent infections or intercurrent illnesses. No signs of diarrhea. His stool is soft formed. He remains on prophylactic Vanco through the duration of this treatment due to c-diff. No drenching sweats, unintentional weight loss or palpable adenopathy. His energy and stamina arereasonably good as long as he paces himself. No neuropathy. No new health-related concerns. 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 6 mos of adjuvant Lupron. Total dose 79.2 Gy completed 01/26/15 09/29/22 Large B Cell lymphoma - biopsy of tongue and needle of cervical LN. FISH from [place] No MYCrearrangement and no fusion of MYC [...] cytoxan at 80% and vinca at 1mg. 01/31/23 C#6 R-CHOP will increase Aurelio and CTX dose to 100% PMHX: Pre- DM type II ~ 15 [...] only 1 biologic. Son Cheo Freire. Enjoys reads, movies, race car, cards. [employer]. 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 Not a . ETOH: 1-3 beers per week Smoking: Quit 1985. Approximately 47-puji-dlzl history Vaping or electronic cigarettes: denies Chewing tobacco: denies Marijuana or other recreational drug use: none HIPPA Contact Permission: Claritza and Cheo. Also OK to talk to Delia adult children. OK to leave message with medical information on home or cell phone: home phone PHYSICAL EXAM BP 136/71 (Patient Position: Sitting) Pulse 80 Temp 36.4 ??C (97.5 ??F) (Temporal) Resp 16 Ht 168.6 cm (5' 6.38) Wt 91.6 kg (202 lb) SpO2 97% BMI 32.23 kg/m?? GENERAL: Cheo Freire is a delightful 72-year old male in [facility]. He is accompanied to the clinic [...] (with Diff) Result Value Ref Range WBC 6.74 RBC 3.26 (L) Hemoglobin 9.7 (L) Hematocrit 31.0 (L) Platelets 318 Neutr Abs (ANC) 4.72 Comprehensive metabolic panel (non-fasting) Result Value Ref Range Glucose Lvl 238 (H) BUN 13 Creatinine 1.1 Sodium 140 Potassium 3.4 (L) Calcium 9.0 Total Protein 6.3 (L) Albumin 2.9 (L) Total Bilirubin 0.2 Alk Phos 99 AST 21 ALT 24 Ferritin 233 PATHOLOGY: Final Diagnosis A. Tongue base, left: -Large B-cell lymphoma, incompletely classified. See comment. Diagnosis Comment The findings are those of a large B-cell lymphoma that exhibits a non-germinal center immunophenotype and expresses Myc and BCL-2 protein (Double Expressor.) Flow cytometry ([id number]) supports this interpretation. FISH from [place] No MYC rearrangement and no fusion of MYC and IGH was observed, CD3 (SP7, Thermo Scientific) Background T-cells CD20 (L26, Kaycee) diffusely positive in Neoplastic B-cells PAX-5 (1EW, Leica) diffusely positive in Neoplastic B-cells CD10 (SP67, Kaycee) Negative BCL-6 (G/191E/A8, Kaycee) Positive MUM-1 (MUM1p, Dako) Positive Myc (Y69, Abcam) Positive BCL-2 Oncoprotein (124, Kaycee) Positive Ki67 (MIB-1) (K2, Leica) Greater than 95% of cells in cycle Cyclin D1(SP4-R, Kaycee) Negative SAPPHIRE JOSE ([id number], Leica) Negative. DIAGNOSTICS: 01/25/23 ECHO after C#5 [...] STUDIES REVIEWED: No new images reviewed today 12/26/22 PET after C#4 IMPRESSION 1. Near [...] undergo investigation with ultrasound. CT CAP at [facility], report and images have been requested. ASSESSMENT/PLAN: Cheo Freire is a very pleasant 72 y.o. male referred y Dr Lg Ramírez of ENT for newly diagnosed large B cell lymphoma.. It was a pleasure to meet Cheo, his Claritza, and his son Cheo. Cheo returns today s/p 5 cycles of R-CHOP chemotherapy. Despite Neulasta prophylaxis, [...] suggestion of disease progression --Proceed with cycle #6 R-CHOP at 100% dose of Cytoxan and Adriamycin --no additional dose modifications to treatment plan [...] LVEF at 50-55%. --asymptomatic --repeat echo at [facility] 1 year post completion of therapy Suspected MEHNAZ - Hgb drop 3gm in Hgb in October. No overt bleeding though there may have been someGI loss with c-diff colitis. He was prescribed a course of oral iron which has subsequently been discontinued on 12/06/22. Will follow to follow prospectively. Ferritin is normal --Recheck iron studies at completion of therapy. Prostate Cancer - DAVE at this time [...] date. N/V - none to date. Plan: Proceed with cycle #6 R-CHOP today as scheduled with Neulasta support. Will increase dose of Aurelio and Cytoxan to 100%. Continue Vanco 125mg bid for duration of therapy. RTC 03/14/23 following restaging PET scan scheduled for Final PET on 03/05/23 Repeat echo 1 year post completion of therapy recheck iron studies at completion of therapy Continue ACV 400mg po bid until next visit Given c-diff, will hold on prophylactic antibiotics; vanco prophy as above. Continue until next visit Recommend COVID vaccine though he is aware that he may not have a robust response due to ongoing chemotherapy with B-cell depletion. He has already received influenza vaccine. I discussed all of the above with the patient and all of his questions were answered. Support and counseling as appropriate. Yael Merlos, MSN, IMPORT COORDINATION AND PRODUCTION HEAD Nurse Practitioner Section of Hematology Copy Frederick Meade MD documented in this encounter Plan of Treatment Upcoming Encounters Date Type Department Care Team (Late st Contact Info) Description 09/19/2023 8:00 AM EDT Infusion Hematology Oncology at [address] [phone] 09/21/2023 9:30 AM EDT Office Visit Hematology [place] [address] Micha Givens Jr., MD [facility] DR HEMATOLOGY [place] [address] 09/21/2023 10:30 AM EDT Clinical Support Hematology [place] [address] Danii Her RN 09/26/2023 8:30 AM EDT Infusion Hematology Oncology at [address] [phone] 10/03/2023 9:00 AM EDT Office Visit Hematology/Oncology at [address] [phone] Adrianne Ramon MD [facility] HEMATOLOGY [place] [address] Yael Merlos APRN [facility] HEMATOLOGY [place] [address] 10/03/2023 9:30 AM EDT Infusion Hematology Oncology at [address] [phone] 10/10/2023 8:30 AM EDT Infusion Hematology Oncology at [address] [phone] documented as of this encounter Procedures Procedure Name Priority Date/Time Associated Diagnosis Comments CBC (WITH DIFF) Routine 01/31/2023 COMPREHENSIVE METABOLIC PANEL (NON-FASTING) Routine 01/31/2023 documented in this encounter Results * (ABNORMAL) Comprehensive metabolic panel (non-fasting) (01/31/2023) [facility] Glucose Lvl 238(H) BUN 13 Creatinine 1.1 Sodium 140 Potassium 3.4(L) Calcium 9.0 Total Protein 6.3(L) Albumin 2.9(L) Total Bilirubin 0.2 Alk Phos 99 AST 21 ALT 24 Ferritin 233 LDH 222 Blood 01/31/2023 Historical Provider CHEMISTRY ORDERAB LES * (ABNORMAL) CBC (with Diff) (01/31/2023) Pathologist [facility] WBC 6.74 RBC 3.26(L) Hemoglobin 9.7(L) Hematocrit 31.0(L) Platelets 318 Neutr Abs (ANC) 4.72 Blood 01/31/2023 Historical Provider HEMATOLOGY ORDERA BLES documented in this encounter Visit Diagnoses Diagnosis 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 Iron deficiency anemia, unspecified iron deficiency anemia type Clostridium difficile colitis Intestinal infection due to clostridium difficile documented in this encounter Care Teams Mold Changer Relationship Specialty Start Date End Date Frederick Meade MD [address] [place] [address] PCP - General Family Medicine 11/29/17 documented as of this encounter
--- OUTSIDE RECORDS SUMMARY | 2023-09-17 01:34 | XMS_ITS | Encounter Summary ---
Author Organization [facility] Address [facility] [place] [address] Care Team Providers Care Warehouse Operations Manager Name Role Phone Frederick Meade MD Primary Care Provider [phone] Encounter Details Date Type Department Care Team (Late st Contact Info) Description 12/20/2022 Notes Only Hematology/Oncology at [address] [phone] Shelley Cason, [facility] [...] Progress Notes * Shelley Cason MSW - 12/20/2022 10:23 AM EDT Follow up with Cheo and his during his infusion visit today. Mrs. Freire indicated she was informed they were approved for a toi from the [employer]. They are appreciative of this financial assistance. Cheo indicated he tolerated his last treatment much better than the first 2 so he hope his one will go well. Oferred them support as Mrs. Freire shared how challenging this is for them. Reminded them of [employer] availability and will continue to follow for support and resources. Brief assessment Supportive Counseling Financial resources Community Resource documented in this encounter Plan of Treatment Upcoming Encounters Date Type Department Care Team (Late st Contact Info) Description 09/19/2023 8:00 AM EDT Infusion Hematology Oncology at [address] [phone] 09/21/2023 9:30 AM EDT Office Visit [place]emat[place] [address] Micha Givens Jr., MD [facility] [address] [place] [address] 09/21/2023 10:30 AM EDT Clinical Support [place] [address] Danii Her RN 09/26/2023 8:30 AM EDT Infusion Hematology Oncology at [address] [phone] 10/03/2023 9:00 AM EDT Office Visit Hematology/Oncology at [address] [phone] Adrianne aRmon MD [facility] [address] [place] [address] Yael Merlos APRN [facility] [address] [place] [address] 10/03/2023 9:30 AM EDT Infusion Hematology Oncology at [address] [phone] 10/10/2023 8:30 AM EDT Infusion Hematology Oncology at [address] [phone] documented as of this encounter Visit Diagnoses Not on filedocumented in this encounter Care Teams Warehouse Operations Manager Relationship Specialty Start Date End Date Frederick Meade MD [address] [place] [address] PCP - General Family Medicine 11/29/17 documented as of this encounter
--- OUTSIDE RECORDS SUMMARY | 2023-09-17 01:34 | XMS_ITS | Encounter Summary ---
[place] [address] Care Team Providers Care Electrical And Instrumentation Mechanic Name Role Phone Frederick Meade MD Primary Care Provider [phone] Encounter Details Date Type Department Care Team (Late st Contact Info) Description 03/15/2023 Orders Only Radiology at [facility] [place] [address] Aaron Husain MD [facility] [place] [address] Social History Tobacco Use Types Packs/Day Years [...] on file documented as of this encounter H&P Notes * Aaron Husain MD - 03/15/2023 12:32 PM EST Images from the original note were not included. INTERVENTIONAL RADIOLOGY FOCUSED H&P and PRE-PROCEDURE NOTE: PCP: Frederick Meade MD Referring Provider: No ref. provider found Planned procedure: Port removal Ordering Information: There are no answered order specific questions. Presenting Diagnosis/ Complaint: Cheo Freire is a 72 y.o. male with History of Lymphoma, IR Placed right chest port 10/11, fow finished with treatment and removal has been requested. Past Medical/Surgical History: Patient Active Problem List Diagnosis Code Malignant [...] IR Mediport Placement 10/17/2022 Gail Jha PA [facility] INTERVENTIONL RAD TONSILLECTOMY 1958 Medications: Current Outpatient Medications on File Prior to Visit Medication Sig Dispense Refill loratadine (Claritin) 10 mg Tablet Take 10 mg by mouth daily. tamsulosin (Flomax) 0.4 mg capsule Take 0.4 mg by mouth daily. diphenoxylate-atropine (Lomotil) 2.5-0.025 [...] current facility-administered medications on file prior to visit. Allergies: Patient has no known allergies. 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 Tobacco Use Smoking status: Former Packs/day: 1 Types: Cigarettes Quit date: 1985 Years since quittin.0 Smokeless tobacco: Former Quit date: 02/19/1986 Tobacco comments: started smoking in highschool Vaping Use Vaping Use: Never used Substance and Sexual Activity Alcohol use: Yes Alcohol/week: 1.0 standard drink of alcohol Types: 1 Standard drinks or equivalent per week Comment: 3-4 beers month Drug use: Not Currently Sexual activity: Not on file Other Topics Concern Not on file Social History Narrative Not on file Social Determinants of Health Financial Resource Strain: Low Risk (10/11/2022) Overall Financial Resource Strain (CARDIA) Difficulty of Paying Living Expenses: Not hard at all Food Insecurity: No Food Insecurity (10/11/2022) Hunger Vital Sign Worried About Running Out of Food in the Last Year: Never true Ran Out of Food in the Last Year: Never true Transportation Needs: No Transportation Needs (10/11/2022) PRAPARE - Transportation Lack of Transportation (Medical): No Lack of Transportation (Non-Medical): No Physical Activity: Not on file Intimate Partner Violence: Not on file Housing Stability: Low Risk (10/11/2022) Housing Stability Vital Sign Unable to Pay for Housing in the Last Year: No Number of Places Lived in the Last Year: 1 Unstable Housing in the Last Year: No Significant Family History: Family History Problem Relation Age of Onset Type 2 Diabetes Father Cirrhosis Mother 38 Pertinent ROS: as per HPI Labs: Lab Results Component Value Date WBC 5.8 03/06/2023 ANC 4.72 01/31/2023 HCT 34.5 (L) 03/06/2023 PLATELET 211 03/06/2023 BUN 12 03/06/2023 CREATININE 0.94 03/06/2023 ALKPHOS 103 03/06/2023 AST 22 03/06/2023 ALBUMIN 4.1 03/06/2023 BILITOT 0.2 03/06/2023 ALT 18 03/06/2023 PROT 6.4 03/06/2023 Imaging: Physical Exam: Pending (to be performed in angio the day of procedure) ASA: Pending (to be assessed in angio the day of procedure) Mallampati Class: Pending (to be assessed in angio the day of procedure) Assessment: 72 y.o. male with History of Lymphoma, IR Placed right chest port 10/11, fow finished with treatment and removal has been requested. Plan: Planned procedure: Port removal Labs to be performed day of procedure: No labs Sedation: No Sedation Prophylactic antibiotic : None Contrast: No contrast Additional medications for procedure: Lidocaine Planned access site: right chest Position: Supine Consent: Pending Medications to discontinue (and days held): None Case Urgency:: G2- Elective Outpatient intervention within 8-14 days 03/15/2023 documented in this encounter Plan of Treatment Upcoming Encounters Date Type Department Care Team (Late st Contact Info) Description 09/19/2023 8:00 AM EDT Infusion Hematology Oncology at [address] [phone] 09/21/2023 9:30 AM EDT Office Visit Hematology [place] [address] Micha Givens Jr., MD [facility] DR HEMATOLOGY [place] [address] 09/21/2023 10:30 AM EDT Clinical Support Hematology [place] [address] Danii Her RN 09/26/2023 8:30 AM EDT Infusion Hematology Oncology at [address] [phone] 10/03/2023 9:00 AM EDT Office Visit Hematology/Oncology at [address] [phone] Adrianne Ramon MD [facility] DR HEMATOLOGY [place] [address] Yael Merlos, DEVELOPMENT MANAGER [facility] DR HEMATOLOGY [place] [address] 10/03/2023 9:30 AM EDT Infusion Hematology Oncology at [address] [phone] 10/10/2023 8:30 AM EDT Infusion Hematology Oncology at [address] [phone] documented as of this encounter Visit Diagnoses Not on filedocumented in this encounter Care Teams Electrical And Instrumentation Mechanic Relationship Specialty Start Date End Date Frederick Meade MD [address] [place] [address] [address] [place] [address] PCP - General Family Medicine 11/29/17 documented as of this encounter
--- OUTSIDE RECORDS SUMMARY | 2023-09-17 01:34 | XMS_ITS | Encounter Summary ---
Author Organization [facility] [place] [address] Care Team Providers Care Day Care Center Director Name Role Phone Frederick Meade MD Primary Care Provider [phone] Encounter Details Date Type Department Care Team (Latest Contact Info) Description 01/05/2023 Travel Social History Tobacco Use Types Packs/Day [...] AM EDT Infusion Hematology Oncology at [address] [phone] 09/21/2023 9:30 AM EDT Office Visit Hematology [place] [address] Micha Givens Jr., MD [facility] [place] [address] 09/21/2023 10:30 AM EDT Clinical Support Hematology [place] [address] Danii Her RN 09/26/2023 8:30 AM EDT Infusion Hematology Oncology at [address] [phone] 10/03/2023 9:00 AM EDT Office Visit Hematology/Oncology at [address] [phone] Adrianne Ramon MD [facility] [place] [address] Yael Merlos APRN [facility] [place] [address] 10/03/2023 9:30 AM EDT Infusion Hematology Oncology at [address] [phone] 10/10/2023 8:30 AM EDT Infusion Hematology Oncology at [address] [phone] documented as of this encounter Visit Diagnoses Not on filedocumented in this encounter Care Teams Day Care Center Director Relationship Specialty Start Date End Date Frederick Meade MD [address] [place] [address] PCP - General Family Medicine 11/29/17 documented as of this encounter
--- OUTSIDE RECORDS SUMMARY | 2023-09-17 01:34 | XMS_ITS | Encounter Summary ---
Author Organization [facility] [place] [address] Care Team Providers Care Electronic Train Control Technician Name Role Phone Frederick Meade MD Primary Care Provider [phone] Encounter Details Date Type Department Care Team (Latest Contact Info) Description 01/31/2023 Travel Social History Tobacco Use Types Packs/Day [...] place to sleep or slept in a skilled nursing (including now)? No 10/11/2022 Sex and Gender Information Value Date Recorded Sex Assigned at Not on file Gender Identity Not on file Sexual Orientation Not on file documented as of this encounter Plan of Treatment Upcoming Encounters Date Type Department Care Team (Late st Contact Info) Description 09/19/2023 8:00 AM EDT Infusion Hematology Oncology at [address] [phone] 09/21/2023 9:30 AM EDT Office Visit [place] [address] Micha Givens Jr., MD [facility] [place] [address] 09/21/2023 10:30 AM EDT Clinical Support [place]emat[place] [address] Danii Her RN 09/26/2023 8:30 AM EDT Infusion Hematology Oncology at [address] [phone] 10/03/2023 9:00 AM EDT Office Visit Hematology/Oncology at [address] [phone] Adrianne Ramon MD [facility] [place] [address] Yael Merlos APRN [facility] [place] [address] 10/03/2023 9:30 AM EDT Infusion Hematology Oncology at [address] [phone] 10/10/2023 8:30 AM EDT Infusion Hematology Oncology at [address] [phone] documented as of this encounter Visit Diagnoses Not on filedocumented in this encounter Care Teams Electronic Train Control Technician Relationship Specialty Start Date End Date Frederick Meade MD [address] [place] [address] PCP - General Family Medicine 11/29/17 documented as of this encounter
--- OUTSIDE RECORDS SUMMARY | 2023-09-17 01:34 | XMS_ITS | Encounter Summary ---
[place] [address] Care Team Providers Care Refractory Worker Name Role Phone Frederick Meade MD Primary Care Provider [phone] Reason for Referral * Diagnostic Test (Routine) - Closed Specialty Diagnoses / Procedures Referred By Contac t Referred To Contact Radiology Diagnoses 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 Procedures NM PET CT Standard Plus Extremities and Head Yael Merlos APRN [facility] [address] [place] [address] [place] [address] Referral ID Status Reason Start Date Expiration Date V isits Requested Visits Authorized [id number] Closed Specialty Service Requested 12/20/2022 06/19/2024 1 1 Reason for Visit * Diagnostic Test (Routine) - Closed Specialty Diagnoses / Procedures Referred By Contac t Referred To Contact Radiology Diagnoses 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 Procedures NM PET CT Standard Plus Extremities and Head Yael Merlos APRN [facility] [place] [address] [place] [address] Referral ID Status Reason Start Date Expiration Date V isits Requested Visits Authorized [id number] Closed Specialty Service Requested 12/20/2022 06/19/2024 1 1 Encounter Details Date Type Department Care Team (Latest Contact Info) Description 01/05/2023 7:19 AM EST - 01/05/2023 11:59 PM EST Hospital Encounter Nuclear Medicine at [facility] [place] [phone] Yael Merlos APRN [facility] [address] [place] [address] 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 [...] place to sleep or slept in a nursing home (including now)? No 10/11/2022 Sex and [...] tablet Take 5 mg by mouth daily. [email or web address] ULTRA BLUE TEST STRIP Strip USE TO [...] 8:00 AM EDT Infusion Hematology Oncology at [address] [phone] 09/21/2023 9:30 AM EDT Office Visit [place]ematology [place] [address] Micha Givens Jr., MD [facility] DR [place] [address] 09/21/2023 10:30 AM EDT Clinical Support [place] [address] Danii Her, RN 09/26/2023 8:30 AM EDT Infusion Hematology Oncology at [address] [phone] 10/03/2023 9:00 AM EDT Office Visit Hematology/Oncology at [address] [phone] Adrianne Ramon MD [facility] DR [place] [address] Yael Merlos, FLAME ANNEALING MACHINE SETTER [facility] [address] [place] [address] 10/03/2023 9:30 AM EDT Infusion Hematology Oncology at [address] [phone] 10/10/2023 8:30 AM EDT Infusion Hematology Oncology at [address] [phone] documented as of this encounter Procedures Procedure [...] who have questions please contact the health skin care specialist that requested your imaging first. ? Electronically signed by: Fletcher Duckworth MD, [facility] ([phone]), at 01/05/2023 9:50 AM Narrative 01/05/2023 9:50 AM EST EXAMINATION: NM PET CT STANDARD PLUS EXTREMITIES AND HEAD CLINICAL HISTORY: Hematologic malignancy, assess treatment response Non-Hodgkin lymphoma TECHNIQUE: Procedure: Following IV injection of 07-ubpeom-8-deoxyglucose (FDG) a standard uptake of approximately 60 [...] lymphoma TECHNIQUE: Procedure: Following IV injection of 40-smndzb-4-deoxyglucose(FDG) a standard uptake of approximately 60 minutes, [...] of the left upper lobe (image [phone] [id number]). These foci are new since the prior [...] patients who have questions please contactthe health skin care specialist that requested your imaging first. Electronically signed by: Fletcher Duckworth MD, [facility]([phone]), at 01/05/2023 9:50 AM Yael Merlos FLAME ANNEALING MACHINE SETTER IMG PET ORDERABLES documented in this encounter Visit Diagnoses Diagnosis 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 documented in this encounter Administered Medications Inactive Administered Medications - up to 3 most recent administrations Medication Order MAR Action Action Date Dose Rate Site fludeoxyglucose (F-18) FDG injection 0-20 mCi 0-20 mCi, Intravenous, ONCE PRN, 1 dose, Starting on Sun01/05/23 at 0737, Until Sun01/05/23 at 0737, Per Protocol, Radiology Contrast, Routine Given 01/05/2023 7:37 AM EST 13.7 mCi Right Arm documented in this encounter Care Teams Refractory Worker Relationship Specialty Start Date End Date Frederick Meade MD [address] [place] [address] PCP - General Family Medicine 11/29/17 documented as of this encounter
--- OUTSIDE RECORDS SUMMARY | 2023-09-17 01:34 | XMS_ITS | Encounter Summary ---
[place] [address] Care Team Providers Care Physical Chemistry Teacher Name Role Phone Frederick Meade MD Primary Care Provider [phone] Reason for Referral * Diagnostic Test (Routine) - Closed Specialty Diagnoses / Procedures Referred By Contac t Referred To Contact Radiology Diagnoses 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 Procedures IR Mediport Removal Yael Merlos FINGERER [facility] [address] [place] [address] [facility] [place] [address] Referral ID Status Reason Start Date Expiration Date V isits Requested Visits Authorized [id number] Closed Specialty Service Requested 03/15/2023 09/12/2024 1 1 Reason for Visit * Diagnostic Test (Routine) - Closed Specialty Diagnoses / Procedures Referred By Contac t Referred To Contact Radiology Diagnoses 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 Procedures IR Mediport Removal Yael Merlos FINGERER [facility] [place] [address] [facility] [place] [address] Referral ID Status Reason Start Date Expiration Date V isits Requested Visits Authorized [id number] Closed Specialty Service Requested 03/15/2023 09/12/2024 1 1 Encounter Details Date Type Department Care Team (Latest Contact Info) Description 03/29/2023 12:51 PM EST - 03/29/2023 11:59 PM EST Hospital Encounter Radiology at [facility] [place] [address] Yael Merlos APRN [facility] [address] [place] [address] 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 [...] place to sleep or slept in a alf (including now)? No 10/11/2022 Sex and Gender Information Value Date Recorded Sex Assigned at Not on file Gender Identity Not on file Sexual Orientation Not on file documented as of this encounter Last Filed Vital Signs Vital Sign Reading Time Taken Comments Blood Pressure 153/42 03/29/2023 2:30 PM EST Pulse 80 03/29/2023 2:29 PM EST Temperature 36.7 ??C (98 ??F) 03/29/2023 1:48 PM EST Respiratory Rate 18 03/29/2023 2:30 PM EST Oxygen Saturation 97% 03/29/2023 2:30 PM EST Inhaled Oxygen Concentration - - Weight - - Height - - Body Mass Index - - documented in this encounter Discharge Instructions * Discharge Instructions* Shira Zacarias RN - 03/29/2023 2:08 PM EST [facility] Vascular and Interventional Radiology Discharge Instructions for your Chest Port Removal Activity: Relax for the next 24 hours Diet: Drink plenty of fluids. Resume your regular diet Bandage: There is a sterile dressing consisting of small gauze with a clear dressing (Tegaderm or IV 3000). This dressing should be left in place for 48 hours. If the clear dressing becomes loose youshould place tape over the edges to secure it in place. No tub baths, swimming or whirlpools for 1 week. No showering for 48 hours. Note: If you have steri-strips beneath your dressing, simply allow them to fall off. Do not peel them off. There may be Fluvanna-mcqueen (skin glue) also, allow this to flake off. Do not pick this off. Bathing: Do not take a shower until 48 hours after your port is removed; after this time you may shower with the dressing in place, then remove it and pat your skin dry. After 48 hours, we recommend that you cover the area with THE AQUA GUARD PROVIDED for 1 week while showering, facing away from the shower stream. You may use a bandaid to cover the site after the 48 hours are up if there is any drainage. No tub baths, whirlpools or swimming for one week following port removal. Pain: Apply ice bag to site (s) at 30 minute intervals (30 minutes on and 30 minutes off) for 24 hours?? . May use as needed for pain and/or bruising after 24 hours. When to call your healthcare provider: If you notice bleeding from the incision on your chest, you should lie flat and apply firm pressureover the site for 10-15 minutes, keeping the site covered and call your doctor. If you are still bleeding after 10-15 minutes, reapply pressure, and have someone drive you to the nearest Emergency Department, or call 911. If you develop pain, redness, drainage or swelling at or around chest incision site. If you develop a fever equal to or greater than 101 degrees Fahrenheit. When to call the Interventional Radiology Department: Please call with any questions or concerns. If it is during regular office hours, please call [phone]. If it is after regular office hours, or on weekends or holidays, please call [phone] and ask to speak to the Turbine Engineer campaign consultant for Interventional Radiology. You have received medication during your procedure to help lessen anxiety and keep you comfortable.These medications affect judgement and reaction time. We recommend that you do not drive, operate equipment, sign any important documents, or smoke unattended for 24 hours following your procedure. Because of the sedation, be careful on stairs, as you may be unsteady on your feet. You may resume your regular diet as tolerated. IV site -- slight redness, or tenderness is normal, you can use a warm compress. If tenderness and redness increases or foul drainage occurs, please contact your M. D. Revised 12/05/18 documented in this encounter Medications at Time [...] Take 0.4 mg by mouth daily. 08/22/2023 documented as of this encounter Progress Notes * Andreas Caldwell RN - 03/29/2023 11:59 PM EST Follow up call completed for Mediport Removal on 03/30/23. Patient states that they have no concerns or questions at this time and was encouraged to call IR Department should any question or concerns arise. * Shira Zacarias RN - 03/29/2023 2:02 PM EST ANGIO NURSING DATABASE Name: Cheo Freire Date of : 1950 AGE: 72 y.o. [address]: [address] [place] [address] Phone: [phone] (home) Mobile: Telephone Information: Referring Provider: Yael Merlos REASON FOR VISIT: Order Questions Answers Where will study be performed? [facility] Radiology [120] Reason for exam and clinical history: mediport removal- chemo completed Is the patient on anticoagulant / antiplatelet therapy ? Aspirin Planned procedure: Port removal Labs to be performed day of procedure: No labs Sedation: No Sedation Prophylactic antibiotic : None Contrast: No contrast Additional medications for procedure: Lidocaine Planned access site: right chest Position: Supine Consent: Pending Medications to discontinue (and days held): None Case Urgency:: G2- Elective Outpatient intervention within 8-14 days No Known Allergies Pertinent PMH: Patient Active Problem List Diagnosis Code Malignant neoplasm of prostate C61 Gout M10.9 Anemia, iron deficiency D50.9 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 C83.38 Abnormal echocardiogram R93.1 Date/Procedure Meds Given/Comments 10/17/22 Mediport Placement Fentanyl 125 mcg IV, Versed 2.5 mg IV, local 03/29/23 Mediport removal Local only 1358 to procedure room 6 via stretcher. Remained on stretcher supine. All monitors, O2, safety strap in place. Meds per protocol. Laboratory Results: Lab Results Component Value Date CREATININE 0.94 03/06/2023 Lab Results Component Value Date K 3.7 03/06/2023 Lab Results Component Value Date PLATELET 211 03/06/2023 documented in this encounter Plan of Treatment Upcoming Encounters Date Type Department Care Team (Late st Contact Info) Description 09/19/2023 8:00 AM EDT Infusion Hematology Oncology at [address] [phone] 09/21/2023 9:30 AM EDT Office Visit Hematology [place] [address] Micha Givens Jr., MD [facility] [address] [place] [address] 09/21/2023 10:30 AM EDT Clinical Support Hematology [place] [address] Danii Her, RN 09/26/2023 8:30 AM EDT Infusion Hematology Oncology at [address] [phone] 10/03/2023 9:00 AM EDT Office Visit Hematology/Oncology at [address] [phone] Adrianne Ramon MD [facility] [address] [place] [address] Yael Merlos APRN [facility] DR HEMATOLOGY AND [facility]COL[facility]Y [facility] [place] [address] 10/03/2023 9:30 AM EDT Infusion Hematology Oncology at [address] [phone] 10/10/2023 8:30 AM EDT Infusion Hematology Oncology at [address] [phone] documented as of this encounter Procedures Procedure Name Priority Date/Time Associated Diagnosis Comments IR MEDIPORT REMOVAL Routine 03/29/2023 2 :32 PM EST 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 documented in this encounter Results * IR Mediport Removal (03/29/2023 2:32 PM EST) Anatomical Region Laterality Modality X-Ray Angiograph y Narrative 2023 1:04 PM EST Interventional Radiology Procedure Note Procedure: Chest port explant Indication: Lymphoma, therapy complete, discontinue mcc central venous access for chemotherapy Pre-procedure: Informed [...] venous port with all components accounted for. clutch operator: ??Chalo Crews PA-C Attending of record: Ole Arvizu MD 03/29/2023 Yael Merlos FINGERER IMG IR ORDERABLES documented in this encounter Visit Diagnoses Diagnosis 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 documented in this encounter Administered Medications Inactive Administered Medications - up to 3 most recent administrations Medication Order MAR Action Action Date Dose Rate Site lidocaine (Xylocaine) 1% (10 mg/mL) injection 10 mg 10 mg, Subcutaneous, ONCE, 1 dose, On Jadyn 03/29/23 at 1415, For use in Interventional Radiology (IR) only for procedure with direct provider supervision and verbal order., Angio/IR (Intra-Procedure), Routine Given 03/29/2023 2:13 PM EST 10 mg lidocaine-EPINEPHrine (1% - 1:100,000) injection 20 mL 20 mL, Intradermal, ONCE, 1 dose, On Jadyn 03/29/23 at 1415, For use in Interventional Radiology (IR) only for procedure with direct provider supervision and verbal order. *This order is NOT a Venous Ablation Order / Dose., Angio/IR (Intra-Procedure), Routine Given 03/29/2023 2:15 PM EST 20 mLs 20-Other (document in comment section) documented in this encounter Care Teams Physical Chemistry Teacher Relationship Specialty Start Date End Date Frederick Meade MD [address] [place] [address] PCP - General Family Medicine 11/29/17 documented as of this encounter
--- OUTSIDE RECORDS SUMMARY | 2023-09-17 01:34 | XMS_ITS | Encounter Summary ---
Author Organization [facility] [place] [address] Care Team Providers Care Executive Chef Assistant Name Role Phone Frederick Meade MD Primary Care Provider [phone] Reason for Visit * Reason Comments Chemotherapy [id number] * Treatment/Therapy Plan Authorization (Routine) - Closed Specialty Diagnoses / Procedures Referred By Contdamir t Referred To Contact Hematology and Oncology Diagnoses 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 Procedures TC PALONOSETRON HCL, 25MCG, INJECTION (ALOXI) TC APREPITANT, 1 MG, INJECTION TC RITUXIMAB-PVVR, BIOSIMILAR, (RUXIENCE), 10 MG, INJ TC DOXORUBICIN HCL, 10MG, INJECTION (ADRIAMYCIN) TC VINCRISTINE SULFATE, 1MG, INJECTION (ONCOVIN) TC CYCLOPHOSPHAMIDE, 100MG (CYTOXAN) Adrianne Ramon MD [facility] DR HEMATOLOGY [place] [address] [facility] Infusion [address] [place] [phone] Referral ID Status Reason Start Date Expiration Date Visits Re quested Visits Authorized [id number] Closed 10/11/2022 10/11/2023 1 100 Encounter Details Date Type Department Care Team (Late st Contact Info) Description 01/10/2023 9:00 AM EST Infusion Hematology Oncology at [address] [phone] Diffuse large B-cell lymphoma of [...] as of this encounter Progress Notes * Ioana Wood RN - 01/10/2023 9:00 AM EST INFUSION THERAPY ADMINISTRATION NOTES DIAGNOSIS: DLBCL CYCLE #: C5D1 REASON FOR VISIT: IGOR Grider offers no complaints, he met with Dr. Ramon prior to infusion, ready for treatment. OBJECTIVE LAB DATA: completed today at [facility] Pre administration: Chemotherapy orders independently verified for drug name, route, and dosage per patient's height, weight and BSA by Ioana William, OSCAR and pharmacist onsite. REACTIONS (DESCRIPTION, TIME, INTERVENTION AND EFFECTIVENESS) none ASSESSMENT Rituxan administered at rapid rate Cheo was awake, alert and he tolerated treatment well. OnPro applied to right arm at 1402 . Due to start deploying dose of medication tomorrow. Patient instructed to remove at when meter reads empty and light is solid green. Verbal and written instruction given to patient. PLAN Return to clinic per routine. documented in this encounter Plan of Treatment Upcoming Encounters Date Type Department Care Team (Late st Contact Info) Description 09/19/2023 8:00 AM EDT Infusion Hematology Oncology at [address] [phone] 09/21/2023 9:30 AM EDT Office Visit Hematology [place] [address] Micha Givens Jr., MD [facility] HEMATOLOGY [place] [address] 09/21/2023 10:30 AM EDT Clinical Support Hematology [place] [address] Danii Her RN 09/26/2023 8:30 AM EDT Infusion Hematology Oncology at [address] [phone] 10/03/2023 9:00 AM EDT Office Visit Hematology/Oncology at [address] [phone] Adrianne Ramon MD [facility] HEMATOLOGY [place] [address] Yael Merlos, GRAPE PRUNER [facility] HEMATOLOGY [place] [address] 10/03/2023 9:30 AM EDT Infusion Hematology Oncology at [address] [phone] 10/10/2023 8:30 AM EDT Infusion Hematology Oncology at [address] [phone] documented as of this encounter Visit Diagnoses Diagnosis 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 documented in this encounter Administered Medications Inactive Administered Medications - up to 3 most recent administrations Medication Order MAR Action Action Date Dose Rate Site acetaminophen (Tylenol) tablet 650 mg 650 mg, Oral, ONCE, 1 dose, On Sun01/10/23 at 0930, Administer prior to riTUXimab., Routine Given 01/10/2023 9:46 AM EST 650 mg aprepitant (CINVANTI) injection Emulsion 130 mg 130 mg, Intravenous, Administer over 2 Minutes, ONCE, 1 dose, On Sun01/10/23 at 0930, Alternative administration of IV push over 2 minutes is a recommendation from the clinical education assistant. Administer prior to chemotherapy., Routine Given 01/10/2023 9:49 AM EST 130 mg cyclophosphamide (Cytoxan) 1,278 mg in sodium chloride 0.9% 313.9 mL infusion 1,278 mg (600 mg/m2/dose ? 2.13 m2 Treatment Plan BSA from Recorded weight), Intravenous, ONCE, 1 dose, On Sun01/10/23 at 1030, Administer over 30 Minutes, Warning Vesicant/Irritant Medication New Bag 01/10/2023 1:01 PM EST 1,278 mg 627.8 mL/hr diphenhydrAMINE (Benadryl) capsule 50 mg 50 mg, Oral, ONCE, 1 dose, On Sun01/10/23 at 0930, Administer prior to riTUXimab, Routine Given 01/10/2023 9:46 AM EST 50 mg DOXOrubicin (Adriamycin) injection 85.2 mg 85.2 mg (40 mg/m2/dose ? 2.13 m2 Treatment Plan BSA from Recorded weight), Intravenous, ONCE, 1 dose, On Sun01/10/23 at 1030, Warning Vesicant/Irritant Medication Administer each syringe over a minimum of 3 minutes. Given 01/10/2023 12:45 PM EST 85.2 mg heparin (pf) (porcine) (100 units/mL) flush 5 mL syringe 500 Units 500 Units, Intravenous, ONCE PRN, Starting on Sun01/10/23 at 0914, Until Sun01/10/23 at 1634, Line Care, Refer to Intravenous (IV) Procedure: Accessing Implanted Vascular Access Devices (654) procedure and/or Intravenous (IV) Job Aid: Adult Flushing & Catheter Care (7260) job aid for additional information regarding guidelines and administration., Routine Given 01/10/2023 2:02 PM EST 500 Units palonosetron (Aloxi) (0.05 mg/mL) injection 0.25 mg 0.25 mg, Intravenous, ONCE, 1 dose, On Sun01/10/23 at 0930, Administer over 30 seconds., Routine Given 01/10/2023 9:47 AM EST 0.25 mg pegfilgrastim (Neulasta Onpro) (6 mg/0.6 mL) injection kit 6 mg 6 mg, Subcutaneous, ONCE, 1 dose, On Sun01/10/23 at 0930, Allow the prefilled syringe co-packaged with the on-body injector to reach room temperature at least 30 minutes prior to administration., Routine, This agent is restricted to outpatient use. Is this drug being given as an outpatient? Yes Given 01/10/2023 2:03 PM EST 6 mg predniSONE (Deltasone) tablet 100 mg 100 mg, Oral, ONCE, 1 dose, On Sun01/10/23 at 0930, Give first dose prior to riTUXimab, Routine Given 01/10/2023 9:46 AM EST 100 mg riTUXimab-pvvr (Ruxience) 800 mg in sodium chloride 0.9% 400 mL infusion 800 mg, Intravenous, ONCE, 1 dose, On Sun01/10/23 at 1030, Administer Per Protocol, Is this product being used for treatment of malignant indication? Yes, Patient is a candidate for rapid infusion riTUXimab? Yes New Bag 01/10/2023 10:57 AM EST 800 mg sodium chloride 0.9 % (flush) (BD PosiFlush Normal Saline 0.9) flush 5-20 mL 5-20 mL, Intravenous, EVERY 1 MIN PRN, Starting on Sun01/10/23 at 0914, Until 11/22/23 at 1634, Line Care, Flush pertains to all indwelling lines. Flush per protocol found in the job aid using the link provided on this medication record. Refer to Intravenous (IV) Job Aid: Adult Flushing & Catheter Care (6832) job aid for additional information regarding guidelines and administration., Routine Given 01/10/2023 2:02 PM EST 20 mLs sodium chloride 0.9% infusion 150 mL/hr, Intravenous, CONTINUOUS, Starting on Sun01/10/23 at 0930, Until Sun01/10/23 at 1634 New Bag 01/10/2023 9:47 AM EST 150 mL/hr 150 mL/hr vinCRIStine (Oncovin) 1 mg in sodium chloride 0.9% 26 mL infusion 1 mg, Intravenous, ONCE, 1 dose, On Sun01/10/23 at 1030, Administer over 5 Minutes, Maximum dose 2 mg Administer over 5 to 10 minutes via gravity concurrently with NS free flowing. Warning Vesicant/Irritant Medication New Bag 01/10/2023 12:52 PM EST 1 mg 312 mL/hr documented in this encounter Care Teams Executive Chef Assistant Relationship Specialty Start Date End Date Frederick Meade MD [address] [place] [address] PCP - General Family Medicine 11/29/17 documented as of this encounter
--- OUTSIDE RECORDS SUMMARY | 2023-09-17 01:34 | XMS_ITS | Encounter Summary ---
[place] [address] Care Team Providers Care Recording Studio Setup Worker Name Role Phone Frederick Meade MD Primary Care Provider [phone] Reason for Referral * Diagnostic Test (Routine) - Authorized Specialty Diagnoses / Procedures Referred By Contac t Referred To Contact Radiology Diagnoses 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 Procedures CT Neck Soft Tissue w Contrast (Generic) Yael Merlos PHONE CIRCUIT OPERATOR [facility] [address] [place] [address] Referral ID Status Reason Start Date Expiration Date Visits Requested Visits Authorized [id number] Authorized Specialty Service Requested 06/13/2023 12/12/2024 1 1 * Diagnostic Test (Routine) - Authorized Specialty Diagnoses / Procedures Referred By Contac t Referred To Contact Radiology Diagnoses 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 Procedures CT Chest Abdomen Pelvis w Contrast (Generic) Yael Merlos APRN [facility] [address] [place] [address] Referral ID Status Reason Start Date Expiration Date Visits Requested Visits Authorized [id number] Authorized Specialty Service Requested 06/13/2023 12/12/2024 1 1 Reason for Visit * Reason Comments Follow-up Encounter Details Date Type Department Care Team (Late st Contact Info) Description 06/13/2023 11:00 AM EDT Office Visit Hematology/Oncology at [address] [phone] Adrianne Ramon MD [facility] [address] [place] [address] Yael Merlos APRN [facility] [place] [address] 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; Iron deficiency anemia, unspecified iron deficiency anemia type; Non-Hodgkin lymphoma of lymph nodes of multiple regions, unspecified non-Hodgkin lymphoma type Social History Tobacco Use Types Packs/Day [...] Sign Reading Time Taken Comments Blood Pressure 143/74 06/13/2023 10:53 AM EDT Pulse 67 06/13/2023 10:53 AM EDT Temperature 36.4 ??C (97.5 ??F) 06/13/2023 10:53 AM E DT Respiratory Rate 18 06/13/2023 10:53 AM EDT Oxygen Saturation 97% 06/13/2023 10:53 AM EDT Inhaled Oxygen Concentration - - Weight 92.1 kg (203 lb) 06/13/2023 10:53 AM EDT Height 168.6 cm (5' 6.38) 06/13/2023 10:53 AM E DT Body Mass Index 32.39 06/13/2023 10:53 AM EDT documented in this encounter Progress Notes * Yael Merlos, PHONE CIRCUIT OPERATOR - 06/13/2023 11:00 AM EDT Hematology Clinic [facility] [place] [address] HEMATOLOGY PATIENT EVALUATION PROBLEM LIST: Patient Active [...] to consultation, he saw Express [facility] in [facility] and when to [facility]. No beds so sent to [facility] for [address] CAP, MRI, [...] x7 days with nice response. Pathology from [facility] reports large B-cell lymphoma. Double expresser. FISH for translocations are pending. Tongue swelling. No wt loss. Eating and drinking OK. No fevers, infections, No NS. Pain in neck. Prednisone 60mg daily X 7 days. I feel great on prednisone last day of prednisone is today. Took iron supplements per PCP - unclear cause. - last COLO at [facility] was 01/17/2012. INTERIM HISTORY OF PRESENT ILLNESS: Cheo returns to clinic today in routine follow-up for his DLBCL now S/p completion of 6 cycles ofR-CHOP in January 2023 with complete remission documented by PET on 03/06/23. Since last seen in clinic ~ 3 months ago, Cheo reports feeling quite well. He feels about 70-80% pre-disease baseline. No fevers, chills, recurrent infections or intercurrent illnesses. No signs of diarrhea or recurrence of c-diff. No neuropathy or residual effects of chemotherapy. No drenching sweats, unintentional weight loss or palpable adenopathy. His energy and stamina are reasonably good as long as he paces him self. He and his have been walking and Cheo has been using his bike. They are opening their [place] again inviting in close friends and family and beginning to extends back out in their social [place] which is quite reasonable at this point. No new health-related concerns. 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 6 mos of adjuvant Lupron. Total dose 79.2 Gy completed 01/26/15 09/29/22 Large B Cell lymphoma - biopsy of tongue and needle of cervical LN. FISH from [place] No MYCrearrangement and no fusion of MYC [...] Skin rashes or petechiae: No Musculoskeletal complaints: strength is improving as be [...] PRN tamsulosin (FLOMAX) 0.4 mg, Oral, DAILY ALLERGIES: No Known Allergies FAMILY HISTORY: reviewed, no changes Mother: ETOH Cirrhosis Father: DM Sibs: Sister alive w/ DM ; 1/2 bro with DM, poorly controlled. Children: son pre-DM Other: negative SOCIAL HISTORY: reviewed, no changes Personal: Claritza 37 years (third marriage, divorce and ) 4 children only 1 biologic. Son Cheo Freire. Enjoys [employer], movies, race car, [employer]. [employer]. 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 Not a . ETOH: 1-3 beers per week Smoking: Quit 1985. Approximately [id number] history Vaping or electronic cigarettes: denies Chewing tobacco: denies Marijuana or other recreational drug use: none HIPPA Contact Permission: Claritza and Cheo. Also OK to talk to Delia adult children. OK to leave message with medical information on home or cell phone: home phone PHYSICAL EXAM BP 143/74 (Patient Position: Sitting) Pulse 67 Temp 36.4 ??C (97.5 ??F) (Temporal) Resp 18 Ht 168.6 cm (5' 6.38) Wt 92.1 kg (203 lb) SpO2 97% BMI 32.39 kg/m?? GENERAL: Cheo Freire is a delightful 73-year old male in [facility]. He is accompanied to the clinic [...] spinal or chest wall tenderness. LABORATORY STUDIES 06/13/23 00:00 WBC 6.67 (E) RBC 4.20 (L) (E) Hemoglobin 12.6 (L) (E) Hematocrit 38.1 (L) (E) Platelets 221 (E) Neutr Abs (ANC) 4.45 (E) Sodium 144 (E) Potassium 3.6 (E) BUN 14 (E) Creatinine 1.1 (E) Calcium 8.8 (E) Glucose Lvl 136 (H) (E) Total Protein 6.6 (E) Albumin 3.5 (E) Total Bilirubin 0.3 (E) Alk Phos 110 (E) AST 19 (E) ALT 31 (E) LDH 170 (E) (L): Data is abnormally low (H): Data is abnormally high (E): External lab result PATHOLOGY: Final Diagnosis A. Tongue base, left: -Large B-cell lymphoma, incompletely classified. See comment. Diagnosis Comment The findings are those of a large B-cell lymphoma that exhibits a non-germinal center immunophenotype and expresses Myc and BCL-2 protein (Double Expressor.) Flow cytometry ([id number]) supports this interpretation. FISH from [place] No MYC rearrangement and no fusion of MYC and IGH was observed, CD3 (SP7, [employer]) Background T-cells CD20 (L26, [place]) diffusely positive in Neoplastic B-cells PAX-5 (1EW, [employer]) diffusely positive in Neoplastic B-cells CD10 (SP67, [place]) Negative BCL-6 (G/191E/A8, [place]) Positive MUM-1 (MUM1p, [employer]) Positive Myc (Y69, [employer]) Positive BCL-2 Oncoprotein (124, [place]) Positive Ki67 (MIB-1) (K2, [employer]) Greater than 95% of cells in cycle Cyclin D1(SP4-R, [place]) Negative SAPPHIRE JOSE ([id number], [employer]) Negative. DIAGNOSTICS: 01/25/23 ECHO after C#5 [...] left ventricular ejection fraction is 49% by [employer]'s biplane. Global longitudinal strain is measured at [...] undergo investigation with ultrasound. CT CAP at [facility], report and images have been requested. [...] 100% with cycle #6 without excessive toxicity. --no clinical or laboratory suggestion of disease progression --no residual effects of treatment Cardiac -Cheo has no cardiac history. No [...] LVEF at 50-55%. --asymptomatic --repeat echo at [facility] 1 year post completion of therapy [...] an active problem at this time Plan: RTC in 3 mos with cbc, cmp, ldh, immunoglobulin levels, iron studies and appt Repeat echo 1 year post completion of therapy (Jan- Feb) Given c-diff, will need to consider vanco prophy if requires ATB in next 6 - [address] N, CAP surveillance in 6 mos (summer 2023) Surveillance every 3 mos for first year (Feb 2024) and every 4 mos for second year (Feb 2025) and then q 6 mos to Feb 2028. I discussed all of the above with the patient and all of his questions were answered. Support and counseling as appropriate. Yael Merlos, MSN, PHONE CIRCUIT OPERATOR Nurse Practitioner Section of Hematology Copy Frederick Meade MD documented in this encounter Plan of Treatment Upcoming Encounters Date Type Department Care Team (Late st Contact Info) Description 09/19/2023 8:00 AM EDT Infusion Hematology Oncology at [address] [phone] 09/21/2023 9:30 AM EDT Office Visit [place]ematology [place] [address] Micha Givens Jr., MD [facility] [address] [place] [address] 09/21/2023 10:30 AM EDT Clinical Support Hematology [place] [phone] Danii Her RN 09/26/2023 8:30 AM EDT Infusion Hematology Oncology at [address] [phone] 10/03/2023 9:00 AM EDT Office Visit Hematology/Oncology at [address] [phone] Adrianne Ramon MD [facility] [place] [address] Yael Merlos, KARLA [facility] [place] [address] 10/03/2023 9:30 AM EDT Infusion Hematology Oncology at [address] [phone] 10/10/2023 8:30 AM EDT Infusion Hematology Oncology at [address] [phone] Scheduled Orders Name Type Priority Associated Diagnoses Orde r Schedule CT Chest Abdomen Pelvis w Contrast (Generic) Imaging Routine 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 Expected: 09/12/2023 (Approximate), Expires: 03/13/2024 CT Neck Soft Tissue w Contrast (Generic) Imaging Routine 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 Expected: 09/12/2023 (Approximate), Expires: 03/13/2024 Ferritin Lab STAT 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 Iron deficiency anemia, unspecified iron deficiency anemia type As Needed for 6 Occurrences starting 06/13/2023 until 06/13/2024 Comprehensive metabolic panel (non-fasting) Lab STAT 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 Iron deficiency anemia, unspecified iron deficiency anemia type As Needed for 6 Occurrences starting 06/13/2023 until 06/13/2024 CBC (with Diff) Lab STAT 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 Iron deficiency anemia, unspecified iron deficiency anemia type As Needed for 6 Occurrences starting 06/13/2023 until 06/13/2024 Lactate Dehydrogenase Lab STAT Non-Hodgkin lymphoma of lymph nodes of multiple regions, unspecified non-Hodgkin lymphoma type As Needed for 6 Occurrences starting 06/13/2023 until 06/13/2024 documented as of this encounter Procedures Procedure Name Priority Date/Time Associated Diagnosis Comments CBC (WITH DIFF) Routine 06/13/2023 COMPREHENSIVE METABOLIC PANEL (NON-FASTING) Routine 06/13/2023 documented in this encounter Results * (ABNORMAL) CBC (with Diff) (06/13/2023) WBC 6.67 RBC 4.20(L) Hemoglobin 12.6(L) Hematocrit 38.1(L) Platelets 221 Neutr Abs (ANC) 4.45 Blood 06/13/2023 Historical Provider HEMATOLOGY ORDERA BLES * (ABNORMAL) Comprehensive metabolic panel (non-fasting) (06/13/2023) Glucose Lvl 136(H) BUN 14 Creatinine 1.1 Sodium 144 Potassium 3.6 Calcium 8.8 Total Protein 6.6 Albumin 3.5 Total Bilirubin 0.3 Alk Phos 110 AST 19 ALT 31 LDH 170 Blood 06/13/2023 Historical Provider CHEMISTRY ORDERAB LES documented in this encounter Visit Diagnoses Diagnosis 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 Iron deficiency anemia, unspecified iron deficiency anemia type Non-Hodgkin lymphoma of lymph nodes of multiple regions, unspecified non-Hodgkin lymphoma type documented in this encounter Care Teams Recording Studio Setup Worker Relationship Specialty Start Date End Date Frederick Meade MD [address] [place] [address] PCP - General Family Medicine 11/29/17 documented as of this encounter
--- OUTSIDE RECORDS SUMMARY | 2023-09-17 01:34 | XMS_ITS | Encounter Summary ---
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 No 10/11/2022 Sex and Gender Information Value Date Recorded Sex Assigned at Not on file Gender Identity Not on file Sexual Orientation Not on file documented as of this encounter Last Filed Vital Signs Vital Sign Reading Time Taken Comments Blood Pressure 146/69 01/10/2023 8:16 AM EST Pulse 83 01/10/2023 8:16 AM EST Temperature 36.3 ??C (97.3 ??F) 01/10/2023 8:16 AM ES T Respiratory Rate 16 01/10/2023 8:16 AM EST Oxygen Saturation 96% 01/10/2023 8:16 AM EST Inhaled Oxygen Concentration - - Weight 91.2 kg (201 lb) 01/10/2023 8:16 AM EST Height 168.6 cm (5' 6.38) 01/10/2023 8:16 AM ES T Body Mass Index 32.07 01/10/2023 8:16 AM EST documented in this encounter Progress Notes * Adrianne Ramon MD - 01/10/2023 8:30 AM EST Hematology Clinic [facility] [place] [facility] [place] [address] HEMATOLOGY PATIENT EVALUATION Patient Active Problem List [...] ~2 weeks ago saw Express Care in [facility] and when to [facility]. No beds so sent to [facility] for [address] CAP, [...] x7 days with nice response. Pathology from [facility] reports large B-cell lymphoma. Double expresser. FISH for translocations are pending. Tongue swelling. No wt loss. Eating and drinking OK. No fevers, infections, No NS. Pain in neck.Prednisone 60mg daily X 7 days. I feel great on prednisone last day of prednisone is today Took iron supplements per PCP - unclear cause. - last COLO at [facility] was 01/17/2012. INTERIM HISTORY OF PRESENT ILLNESS: Cheo returns to clinic today in routine follow-up for his newly diagnosed DLBCL and in anticipation of cycle #5 of R-CHOP chemotherapy. Since last seen in the clinic ~ 3 weeks ago, Cheo reports feeling quite well. He has tolerated 2 cycles of therapy without unexpected toxicity or admission [...] and needle of cervical LN. FISH from [place] No MYCrearrangement and no fusion of MYC [...] in oropharynx - Deauville 4 01/10/23 C#5 RCHOP with jaelyn and cytoxan at 80% and vinca at 1mg. PMHX: Pre- DM type II ~ 13 [...] only 1 biologic. Son Cheo Freire. Enjoys [employer], [employer], [employer] car, [employer]. [employer]. 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 Not a . ETOH: 1-3 beers per week Smoking: Quit 1985. Approximately 42-yfbh-dyup history Vaping or electronic cigarettes: denies Chewing tobacco: denies Marijuana or other recreational drug use: none HIPPA Contact Permission: John. Also OK to talk to Delia adult children. OK to leave message with medical information on home or cell phone: home phone PHYSICAL EXAM BP 146/69 (Patient Position: Sitting) Pulse 83 Temp 36.3 ??C (97.3 ??F) (Temporal) Resp 16 Ht 168.6 cm (5' 6.38) Wt 91.2 kg (201 lb) SpO2 96% BMI 32.07 kg/m?? GENERAL: Cheo Freire is a delightful [...] (with Diff) Result Value Ref Range WBC 8.17 RBC 3.30 (L) Hemoglobin 9.9 (L) Hematocrit 31.2 (L) Platelets 369 Neutr Abs (ANC) 5.91 PATHOLOGY: Final Diagnosis A. Tongue base, left: -Large B-cell lymphoma, incompletely classified. See comment. Diagnosis Comment The findings are those of a large B-cell lymphoma that exhibits a non-germinal center immunophenotype and expresses Myc and BCL-2 protein (Double Expressor.) Flow cytometry ([id number]) supports this interpretation. FISH from [place] No MYC rearrangement and no fusion of MYC and IGH was observed, CD3 (SP7, [employer]) Background T-cells CD20 (L26, [place]) diffusely positive in Neoplastic B-cells PAX-5 (1EW, Le[employer]) diffusely positive in Neoplastic B-cells CD10 (SP67, [place]) Negative BCL-6 (G/191E/A8, [place]) Positive MUM-1 (MUM1p, [employer]ako) Positive Myc (Y69, [employer]) Positive BCL-2 Oncoprotein (124, [place]) Positive Ki67 (MIB-1) (K2, [employer]) Greater than 95% of cells in cycle Cyclin D1(SP4-R, [place]) Negative SAPPHIRE JOSE ([id number], [employer]) Negative. DIAGNOSTICS: 11/28/22 ECHO after C#2 [...] comparison study is available. RADIOLOGY STUDIES REVIEWED: 12/26/22 PET after C#4 - IMPRESSION 1. Near complete metabolic resolution of lymphoma. There remains a focus of increased activity in the right side of the oropharynx which may be due to lymphoma. 2. New FDG avid small focal groundglass opacities in the lungs bilaterally are most likely inflammatory. 3. Deauville score 4. PET Reviewed images with patient and family. [...] undergo investigation with ultrasound. CT CAP at [facility], report and images have been requested. [...] and iron saturation borderline. Recheck iron studies at completion of therapy. Prostate [...] his chemotherapy. No prophylactic broad spectrum antimicrobials. Probiotic daily Neuropathy - none to date. N/V - none to date. Plan: Vanco 125mg bid for duration of therapy. RTC in 3 week for evaluation for C#5 of R-CHOP with modified dosing [Cytoxan and Adriamycin dose at66% with vincristine at 1 mg]. Neulasta support with Claritin daily x 7 days following administration to minimize bone pain - increase cycles 5 to 80% and consider further dose increase with C#6 if C#5 is well tolerated Stop oral iron and recheck iron studies at completion of therapy Continue ACV 400mg po bid Given c-diff, will hold on prophylactic antibiotics; vanco prophy as above. Neulasta support. Repeat ECHO in ~ 2 mos - next due early Jan 2023 - booked for 01/25/23 at [facility] Recommend COVID vaccine though he is aware that he may not have a robust response due to ongoing chemotherapy with B-cell depletion. He has already received influenza vaccine. Final PET week of Mar 05 at [facility] with appt 03/14/22 I discussed all of the above with the patient and all of his questions were answered. Support and counseling as appropriate. Copy Frederick Meade MD documented in this encounter Plan of Treatment Upcoming Encounters Date Type Department Care Team (Late st Contact Info) Description 09/19/2023 8:00 AM EDT Infusion Hematology Oncology at [address] [phone] 09/21/2023 9:30 AM EDT Office Visit Hematology [place] [phone] Micha Givens Jr., MD [facility] DR HEMATOLOGY [place] [address] 09/21/2023 10:30 AM EDT Clinical Support Hematology [place] [phone] Danii Her, RN 09/26/2023 8:30 AM EDT Infusion Hematology Oncology at [address] [phone] 10/03/2023 9:00 AM EDT Office Visit Hematology/Oncology at [address] [phone] Adrianne Ramon MD [facility] HEMATOLOGY [place] [address] Yael Merlos, TYING MACHINE OPERATOR LUMBER [facility] HEMATOLOGY [place] [address] 10/03/2023 9:30 AM EDT Infusion Hematology Oncology at [address] [phone] 10/10/2023 8:30 AM EDT Infusion Hematology Oncology at [address] [phone] documented as of this encounter Procedures Procedure Name Priority Date/Time Associated Diagnosis Comments CBC (WITH DIFF) Routine 01/10/2023 COMPREHENSIVE METABOLIC PANEL (NON-FASTING) Routine 01/10/2023 documented in this encounter Results * (ABNORMAL) Comprehensive metabolic panel (non-fasting) (01/10/2023) Pathologist [facility] Glucose Lvl 235(H) BUN 11 Creatinine 1.1 Sodium 141 Potassium 3.5 Calcium 9.3 Total Protein 6.5 Albumin 2.8(L) Total Bilirubin 0.2 Alk Phos 102 AST 14(L) ALT 18 LDH 207 Blood 01/10/2023 Historical Provider CHEMISTRY ORDERAB LES * (ABNORMAL) CBC (with Diff) (01/10/2023) WBC 8.17 RBC 3.30(L) Hemoglobin 9.9(L) Hematocrit 31.2(L) Platelets 369 Neutr Abs (ANC) 5.91 Blood 01/10/2023 Historical Provider HEMATOLOGY ORDERA BLES documented in this encounter Visit Diagnoses Diagnosis 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
--- OUTSIDE RECORDS SUMMARY | 2023-09-17 01:34 | XMS_ITS | Encounter Summary ---
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 Birthdate: 1950 Admit date: 03/06/2023 Attending Physician: Lauren att. providers found Access visit. See MAR and/or flowsheet. documented in this encounter Plan of Treatment Upcoming Encounters Date Type Department Care Team (Late st Contact Info) Description 09/19/2023 8:00 AM EDT Infusion Hematology Oncology at [address] [phone] 09/21/2023 9:30 AM EDT Office Visit Hematology [place] [address] Micha Givens Jr., MD [facility] [address] [place] [address] 09/21/2023 10:30 AM EDT Clinical Support Hematology [place] [address] Danii Her RN 09/26/2023 8:30 AM EDT Infusion Hematology Oncology at [address] [phone] 10/03/2023 9:00 AM EDT Office Visit Hematology/Oncology at [address] [phone] Adrianne Ramon MD [facility] [place] [address] Yael Merlos, SNIPPER [facility] HEMATOLOGY [place] [address] 10/03/2023 9:30 AM EDT Infusion Hematology Oncology at [address] [phone] 10/10/2023 8:30 AM EDT Infusion Hematology Oncology at [address] [phone] Scheduled Orders Name Type Priority Associated Diagnoses Orde r Schedule Uric acid Lab STAT Non-Hodgkin lymphoma of lymph nodes of multiple regions, unspecified non-Hodgkin lymphoma type 1 Occurrences starting 03/06/2023 until 03/06/2023 Immunoglobulins, Quantitative Lab STAT Non-Hodgkin lymphoma of lymph nodes of multiple regions, unspecified non-Hodgkin lymphoma type 1 Occurrences starting 03/06/2023 until 03/06/2023 Comprehensive metabolic panel (non-fasting) Lab STAT Non-Hodgkin lymphoma of lymph nodes of multiple regions, unspecified non-Hodgkin lymphoma type 1 Occurrences starting 03/06/2023 until 03/06/2023 CBC (with Diff) Lab STAT Non-Hodgkin lymphoma of lymph nodes of multiple regions, unspecified non-Hodgkin lymphoma type 1 Occurrences starting 03/06/2023 until 03/06/2023 Ferritin Lab STAT 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 1 Occurrences starting 03/06/2023 until 03/06/2023 Iron and TIBC Lab STAT 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 1 Occurrences starting 03/06/2023 until 03/06/2023 Lactate Dehydrogenase Lab STAT Non-Hodgkin lymphoma of lymph nodes of multiple regions, unspecified non-Hodgkin lymphoma type 1 Occurrences starting 03/06/2023 until 03/06/2023 Iron and TIBC Lab STAT 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 Iron deficiency anemia, unspecified iron deficiency anemia type 1 Occurrences starting 03/06/2023 until 03/06/2023 documented as of this encounter Procedures Procedure Name Priority Date/Time Associated Diagnosis Comments HC IGA, SERUM STAT 03/06/2023 7:45 AM EST Non-Hodgkin lymphoma of lymph nodes of multiple regions, unspecified non-Hodgkin lymphoma type 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 HEMOGRAM STAT 03/06/2023 7:45 AM EST Non-Hodgkin lymphoma of lymph nodes of multiple regions, unspecified non-Hodgkin lymphoma type 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 DIFFERENTIAL, AUTOMATED STAT 03/06/2023 7:45 AM EST Non-Hodgkin lymphoma of lymph nodes of multiple regions, unspecified non-Hodgkin lymphoma type 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 HC CBC,PLT & AUTO DIFF STAT 7:45 AM EST Non-Hodgkin lymphoma of lymph nodes of multiple regions, unspecified non-Hodgkin lymphoma type 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 HC URIC ACID, SERUM STAT 03/06/2023 7 :45 AM EST Non-Hodgkin lymphoma of lymph nodes of multiple regions, unspecified non-Hodgkin lymphoma type 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 HC LACTIC DEHYDROGENASE STAT 03/06/2023 7:45 AM EST Non-Hodgkin lymphoma of lymph nodes of multiple regions, unspecified non-Hodgkin lymphoma type 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 COMPREHENSIVE METABOLIC PANEL (NON-FASTING) STAT 03/06/2023 7:45 AM EST Non-Hodgkin lymphoma of lymph nodes of multiple regions, unspecified non-Hodgkin lymphoma type 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 documented in this encounter Results * (ABNORMAL) Differential, Automated (03/06/2023 7:45 AM EST) Neutrophils % 56.0 % [facility] Neutr Abs (ANC) 3.23 1.70 - 6.10 x10(3)/mc L [facility] Lymphocytes % 12.1 % [facility] Lymphocytes Abs 0.7(L) 0.9 - 3.2 x10(3)/mc L [facility] Monocytes % 20.5 % [facility] Monocyte Abs 1.2(H) 0.3 - 0.9 x10(3)/[facility] Eosinophils % 10.2 % [facility] Eosinophils Abs 0.6(H) 0.0 - 0.4 x10(3)/[facility] Basophils % 1.0 % [facility] Basophils Abs 0.1 0.0 - 0.1 x10(3)/[facility] Immature Gran % 0.20 % [facility] Comment: Immature granulocytes(IG's)percentage and absolute count will include metamyelocytes, myelocytes, and promyelocytes. Blood smears from CBCs yielding IG's will be scanned manually for concordance. If this scan disagrees with the automated IG or if promyelocytes are noted, a manual differential will be performed. Nellie Gran Abs 0.01 0.00 - 0.04 x10(3)/[facility] Blood 03/06/2023 7:45 AM EST 03/06/2023 8:00 AM EST Narrative Resulting Agency Comment Spec In Lab Adrianne Ramon MD HEMATOLOGY ORDER DUONG [facility] [place] [address] * (ABNORMAL) Hemogram (03/06/2023 7:45 AM EST) WBC 5.8 4.0 - 9.5 x10(3)/[facility] RBC 3.67(L) 4.58 - 5.54 x10(6)/[facility] Hemoglobin 11.3(L) 13.7 - 16.5 g/dL [facility] Hematocrit 34.5(L) 40.5 - 48.5 % [facility] MCV 94.0(H) 82.9 - 93.1 fL [facility] MCH 30.8 27.5 - 32.1 pg [facility] MCHC 32.8 32.0 - 35.7 g/dL [facility] Platelets 211 145 - 357 x10(3)/[facility] RDWSD 54.8(H) 36.0 - 45.0 fL [facility] RDWCV 15.9(H) 11.4 - 13.8 % [facility] MPV 10.2 7.6 - 12.9 fL [facility] nRBC % Auto 0.0 % [facility] nRBC Abs Auto 0.000 0.000 - 0.000 x10(3)/[facility] Blood 03/06/2023 7:45 AM EST 03/06/2023 8:00 AM EST Narrative Resulting Agency Comment Spec In Lab Adrianne Ramon MD HEMATOLOGY ORDER DUONG [facility] [place] [address] * (ABNORMAL) Comprehensive metabolic panel (non-fasting) (03/06/2023 7:45 AM EST) Glucose Lvl 133 65 - 199 mg/dL [facility] Comment:Diabetes: >=200 mg/d L plus symptoms BUN 12 10 - 20 mg/dL [facility] Creatinine 0.94 0.80 - 1.50 mg/dL [facility] Sodium 143 135 - 145 mmol/L [facility] Potassium 3.7 3.5 - 5.0 mmol/L [facility] Comment: Please note: ??Patients with WBC >100,000 may have falsely elevated Potassium levels. ??For accurate Potassium quantification in these patients send serum separator tube (gold top) for subsequent determinations. ??Contact the Clinical Chemistry Laboratory if there are any questions. Chloride 108(H) 98 - 107 mmol/L [facility] CO2 23 22 - 31 mmol/L [facility] Anion Gap 12 5 - 15 mmol/L [facility] Calcium 9.6 8.5 - 10.5 mg/dL [facility] Total Protein 6.4 6.1 - 8.0 g/dL [facility] Albumin 4.1 3.2 - 5.2 g/dL [facility] AST 22 0 - 39 unit/L [facility] ALT 18 0 - 55 unit/L [facility] Alk Phos 103 40 - 130 unit/L [facility] Total Bilirubin 0.2 0.2 - 1.3 mg/dL [facility] Estimated GFR 85 >=60 mL/min/1. 73 m?? [facility] Comment: This patient's estimated GFR was [...] and symptoms in addition to eGFR. Blood 03/06/2023 7:45 AM EST 03/06/2023 8:00 AM EST Narrative Resulting Agency Comment Spec In Lab Ardianne Ramon MD CHEMISTRY ORDERA BLES [facility] [place] [address] * (ABNORMAL) Immunoglobulins, Quantitative (03/06/2023 7:45 AM EST) IgG 572(L) 700 - 1,600 mg/dL [facility] Comment: Pediatric Reference Intervals obtained from the Caliper Reference Interval project. http://www.sickkids.ca/caliperproject/index.html IgA 118 70 - 400 mg/dL [facility] IgM 123 40 - 230 mg/dL [facility] Blood 03/06/2023 7:45 AM EST 03/06/2023 8:00 AM EST Narrative Resulting Agency Comment Spec In Lab Adrianne Ramon MD CHEMISTRY ORDERA BLES Performing Organization Address City/[facility]/ZIP Co de Phone Number [facility] [place] [address] * Lactate Dehydrogenase (03/06/2023 7:45 AM EST) LDH 198 110 - 220 unit/L [facility] Blood 03/06/2023 7:45 AM EST 03/06/2023 8:00 AM EST Narrative Resulting Agency Comment Spec In Lab Adrianne Ramon MD CHEMISTRY ORDERA BLES Performing Organization Address [facility] Co de Phone Number [facility] [place] [address] * Uric acid (03/06/2023 7:45 AM EST) Uric Acid 5.5 3.5 - 8.5 mg/dL [facility] Blood 03/06/2023 7:45 AM EST 03/06/2023 8:00 AM EST Narrative Resulting Agency Comment Spec In Lab Adrianne Ramon MD CHEMISTRY ORDERA BLES Performing Organization Address [facility] Co de Phone Number [facility] [place] [address] documented in this encounter Visit Diagnoses Diagnosis Non-Hodgkin lymphoma of lymph nodes of multiple regions, unspecified non-Hodgkin lymphoma type 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 Iron deficiency anemia, unspecified iron deficiency anemia type documented in this encounter Administered Medications Inactive Administered Medications - up to 3 most recent administrations Medication Order MAR Action Action Date Dose Rate Site sodium chloride 0.9 % (flush) (BD PosiFlush Normal Saline 0.9) flush 10-20 mL 10-20 mL, Intravenous, EVERY 1 MIN PRN, Starting on Sun03/06/23 at 0740, Until 03/07/23 at 0433, Soa Integration Architect, Routine Given 03/06/2023 7:50 AM EST 20 mLs documented in this encounter Care Teams Horse Identifier Relationship Specialty Start Date End Date Frederick Meade MD [address] [place] [address] PCP - General Family Medicine 11/29/17 documented as of this encounter
--- OUTSIDE RECORDS SUMMARY | 2023-09-17 01:34 | XMS_ITS | Encounter Summary ---
Author Organization [facility] Address [facility] [place] [address] Care Team Providers Care Is Project Manager Name Role Phone Frederick Meade MD Primary Care Provider [phone] Encounter Details Date Type Department Care Team (Late st Contact Info) Description 11/29/2022 Notes Only Hematology/Oncology at [address] [phone] Shelley Cason, [facility] OFFICE OF CARE MANAGEMENT Social History Tobacco [...] Progress Notes * Shelley Cason MSW - 11/29/2022 12:00 PM EDT Follow up with Cheo and his during his infusion visit. Informed they have shared concerns are co-pay on some recent prescriptions. Mrs. Freire indicated the team is looking at more affordableoptions. TYPE BAR AND SEGMENT ASSEMBLER does not have a solution to the cost but offered information about the [facility] Clar[employer] which if approved would send a monthly stipend for 6 months that could be used towards these costs. Gave Mrs. Freire information on how to apply to the fund. Also offered some gift cards for food and gas to offset some of the expenses in order to pay for the medication. She will consider. Informed Polly Orellana RN and Amanda Rosales RN re this. Financial resources Community Resource documented in this encounter Plan of Treatment Upcoming Encounters Date Type Department Care Team (Late st Contact Info) Description 09/19/2023 8:00 AM EDT Infusion Hematology Oncology at [address] [phone] 09/21/2023 9:30 AM EDT Office Visit Hematology [place] [address] Micha Givens Jr., MD [facility] HEMATOLOGY [place] [address] 09/21/2023 10:30 AM EDT Clinical Support Hematology [place] [address] Danii Her RN 09/26/2023 8:30 AM EDT Infusion Hematology Oncology at [address] [phone] 10/03/2023 9:00 AM EDT Office Visit Hematology/Oncology at [address] [phone] Adrianne Ramon MD [facility] DR HEMATOLOGY [place] [address] Yael Merlos APRN [facility] DR HEMATOLOGY [place] [address] 10/03/2023 9:30 AM EDT Infusion Hematology Oncology at [address] [phone] 10/10/2023 8:30 AM EDT Infusion Hematology Oncology at [address] [phone] documented as of this encounter Visit Diagnoses Not on filedocumented in this encounter Care Teams Is Project Manager Relationship Specialty Start Date End Date Frederick Meade MD [address] [place] [address] [address] [place] [address] PCP - General Family Medicine 11/29/17 documented as of this encounter
--- OUTSIDE RECORDS SUMMARY | 2023-09-17 01:35 | XMS_ITS | Encounter Summary ---
Author Organization [facility] Address [facility] [place] [address] Care Team Providers Care Cyber Security Name Role Phone Frederick Meade MD Primary Care Provider [phone] Reason for Visit * Consultation (Urgent) - Closed Specialty Diagnoses / Procedures Referred By Contac t Referred To Contact Cardiology Diagnoses 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 CARD-ONC Pt w/o cardiac hx. New lymphoma. Needs anthracycline. Echo w/ EF 49% & mild global hypokinesis. Please eval for ongoing anthracycline safety. Adrianne Ramon MD [facility] HEMATOLOGY [place] [address] Chalo Barbosa MD [facility] [place] [address] Referral ID Status Reason Start Date Expiration Date V isits Requested Visits Authorized [id number] Closed Consult, Test & Treat 10/12/2022 10/12/2023 1 1 Encounter Details Date Type Department Care Team (Latest Contact Info) Description 11/06/2022 2:10 PM EDT Office Visit Cardiology at [place] [phone] Chalo Barbosa MD [facility] [place] [address] Abnormal echocardiogram Social History Tobacco Use Types Packs/Day Years [...] Sign Reading Time Taken Comments Blood Pressure 139/69 11/06/2022 2:01 PM EDT Pulse 87 11/06/2022 2:01 PM EDT Temperature - - Respiratory Rate - - Oxygen Saturation 99% 11/06/2022 2:01 PM EDT Inhaled Oxygen Concentration - - Weight 93 kg (205 lb) 11/06/2022 2:01 PM EDT Height 167.6 cm (5' 6) 11/06/2022 2:01 PM EDT Body Mass Index 33.09 11/06/2022 2:01 PM EDT documented in this encounter Progress Notes * Chalo Barbosa MD - 11/06/2022 2:10 PM EDT Images from the original note were not included. [facility] [place], [place] [address] CARDIO-ONCOLOGY CONSULTATION Cheo Santos Teressagisell Primary Care Provider: Frederick Meade MD Referring Provider: Frederick Meade CHIEF COMPLAINT: Mild reduction in LVEF, pre chemotherapy HISTORY OF PRESENT ILLNESS: Cheo Freire is a 72 y.o. patient who presents with LVEF 49% on pretreatment echocardiogram Other than the new diagnosis, he has been doing quite well. Reasonable outdoor activity is unencumbered, and without angina nor untoward dyspnea. No palpitations, LH, orthopnea, pnd We reviewed today's echocardiogram result, after 1 cycle of R-CHOP. Pertinent Cardiac History: Mildly reduced EF, per echocardiogram - 09/2022 TTE: [49%, -15.6] - 10/2022 TTE: [52%, -16.6] ASCVD - Per non-dedicated CT. Pertinent Oncologic History: B-Cell Lymphoma - Dx: 09/2022 - Tx: R-CHOP ALLERGIES: Reviewed and updated as appropriate in the medical record. No Known Allergies MEDICATIONS: Outpatient Medications Marked as Taking for the 11/06/22 encounter (Office Visit) with Chalo Barbosa MD Medication Sig Dispense Refill acyclovir (Zovirax) 400 mg tablet Take 1 tablet by mouth 2 times daily. 60 tablet 5 amLODIPine (Norvasc) 5 mg tablet Take 5 mg by mouth daily. ONETOUCH ULTRA BLUE TEST STRIP Strip USE TO TEST DAILY 3 ONE TOUCH DELICA 33 gauge Misc USE TO TEST DAILY 4 ONETOUCH ULTRASOFT LANCETS Misc USE TO TEST DAILY 2 ferrous sulfate 325 mg (65 mg iron) Tablet Take 650 mg by mouth daily. Indications: take two tabs at breakfast [DISCONTINUED] allopurinol (ZYLOPRIM) 100 mg Tablet Take 200 mg by mouth daily. aspirin 81 mg Tablet, Chewable Take 81 mg by mouth daily. PHYSICAL EXAMINATION: Vital Signs: BP 139/69 Pulse 87 Ht 167.6 cm (5' 6) Wt 93 kg (205 lb) SpO2 99% BMI 33.09 kg/m?? Wt & BMI By Encounter Date Flowsheet Row Office Visit [place] 11/06/2022 [place] [facility] [place] Visit from 10/18/2022 in Hematology/Oncology at [facility] Weight 93 kg (205 lb) 1 11/06/2022 1401 93.2 kg (205 lb 6.4 oz) 1 10/18/2022 0801 BMI 33.08 1 11/06/2022 1401 32.77 1 10/18/2022 0801 Gen: pleasant male in NAD Cor: rrr, s1/s2 of nl character and amplitude, no m/r/g. Estimated RAP not elevated. Carotids with normal upstroke without bruit. Pulm: CTAB. Normal diaphragmatic movement without use of accessory muscles Ext: no c/c/e. Dp/pt ++ TTE: Reviewed, as per pertinent cardiac history above ASSESSMENT: Mildly reduced EF, resolved: Patient's echocardiogram today, without intervention is now with low-normal EF. Reviewed the approximation of EF on echocardiograms (though the GLS did track concordantly). With R-CHOP, he is going to get a relatively low total dose of anthracycline. Without exertional s ymptomatology nor evidence of volume overload, reviewed that his clinical picture was rather reassuring, even if the true value of the EF is 49%. I do not think adding cardioprotection nor altering chemotherapy regimen would be indicated at this time CAD: This is asymptomatic, but initiation of statin therapy based on the calcium alone would be reasonable. Since this is for long-term morbidity reduction, this can be started after chemotherapy. RECOMMENDATIONS: - No changes to current regimen - Would recommend troponin, CK, and pBNP prior to next cycles of chemotherapy; this would provide abaseline and more data points especially as his EF tends to run low normal - Consider moderate dose statin therapy post-chemotherapy Chalo Barbosa MD RTC 6 months; sooner if TTE becomes increasingly aberrant, or develops s/s of ASCVD or HF documented in this encounter Plan of Treatment Upcoming Encounters Date Type Department Care Team (Late st Contact Info) Description 09/19/2023 8:00 AM EDT Infusion Hematology Oncology at [address] [phone] 09/21/2023 9:30 AM EDT Office Visit Hematology [place] [address] Micha Givens Jr., MD [facility] DR HEMATOLOGY [place] [address] 09/21/2023 10:30 AM EDT Clinical Support Hematology [place] [address] Danii Her RN 09/26/2023 8:30 AM EDT Infusion Hematology Oncology at [address] [phone] 10/03/2023 9:00 AM EDT Office Visit Hematology/Oncology at [address] [phone] Adrianne Ramon MD [facility] DR HEMATOLOGY [place] [address] Yael Merlos APRN [facility] DR HEMATOLOGY [place] [address] 10/03/2023 9:30 AM EDT Infusion Hematology Oncology at [address] [phone] 10/10/2023 8:30 AM EDT Infusion Hematology Oncology at [address] [phone] Scheduled Referrals Name Type Priority Associated Diagnoses Order Schedule Referral to Cardiology Outpatient Referral Urgent 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 Ordered: 10/12/2022 documented as of this encounter Visit Diagnoses Diagnosis Abnormal echocardiogram Nonspecific (abnormal) findings on radiological and other examination of other intrathoracic organs documented in this encounter Care Teams Cyber Security Relationship Specialty Start Date End Date Frederick Meade MD [address] [place] [address] PCP - General Family Medicine 11/29/17 documented as of this encounter
--- OUTSIDE RECORDS SUMMARY | 2023-09-17 01:35 | XMS_ITS | Encounter Summary ---
Author Organization [place] [address] Care Team Providers Care Face And Fill Packer Name Role Phone Frederick Meade MD Primary Care Provider [phone] Encounter Details Date Type Department Care Team (Latest Contact Info) Description 11/29/2022 Travel Social History Tobacco Use Types Packs/Day [...] 8:00 AM EDT Infusion Hematology Oncology at [address] [phone] 09/21/2023 9:30 AM EDT Office Visit [place]ematology [place] [address] Micha Givens Jr., MD [facility] HEMATOLOGY [place] [address] 09/21/2023 10:30 AM EDT Clinical Support [place]ematology [place] [address] Danii Her RN 09/26/2023 8:30 AM EDT Infusion Hematology Oncology at [address] [phone] 10/03/2023 9:00 AM EDT Office Visit Hematology/Oncology at [address] [phone] Adrianne Ramon MD [facility] HEMATOLOGY [place] [address] Yael Merlos APRN [facility] HEMATOLOGY [place] [address] 10/03/2023 9:30 AM EDT Infusion Hematology Oncology at [address] [phone] 10/10/2023 8:30 AM EDT Infusion Hematology Oncology at [address] [phone] documented as of this encounter Visit Diagnoses Not on filedocumented in this encounter Care Teams Face And Fill Packer Relationship Specialty Start Date End Date Frederick Meade MD [address] [place] [address] PCP - General Family Medicine 11/29/17 documented as of this encounter
--- OUTSIDE RECORDS SUMMARY | 2023-09-17 01:35 | XMS_ITS | Encounter Summary ---
[facility] [place] [address] Care Team Providers Care Dowel Setting Machine Operator Name Role Phone Frederick Meade MD Primary Care Provider [phone] Encounter Details Date Type Department Care Team (Late st Contact Info) Description 10/20/2022 Telephone Hematology/Oncology at [address] [phone] Maeve Nicole, RN Social History Tobacco Use Types Packs/Day [...] encounter Miscellaneous Notes * Telephone Encounter - Maeve Nicole RN - 10/20/2022 9:34 AM EDT ----- Message from Polly Orellana RN sent at 10/18/2022 3:18 PM EDT ----- Regarding: call pt Pt had first RCHOP on Oct 18. Yael would like you to call him and check in with him to see how he is doing. You can update glendy Conley Post chemo call Placed call to patient to assess tolerance of first time chemotherapy treatment. Regimen received: RCHOP Date of treatment: 10/18/22 Assessment: Symptom Present (yes[y]/no[n]/ stable[s] from baseline) Additional information/Assessment GI Nausea N Vomiting N Nausea medication N Tolerating diet Y Maintaining fluid intake (indicate volume) Y Bowel movements regular Y Diarrhea N Mouth sores N General Pain (0 none - 10 high) 0 Using pain medications N Fever N Neuro Level of fatigue (0 - 5) 0 Falls N Numbness/tingling in arms/legs N Cognitive changes N Skin Skin changes N Pinpoint red dots N Other s/s of bleeding N IV site/VAD problems N THEY ASKED ABOUT TAKING DRESSING OFF PORT. OK TO DO THAT TODAY. LEAVE OPEN TO AIR NOW UNLESS SHOWERING, USE AQUAGUARD FOR ONE WEEK. Musculoskeletal Joint swelling or tenderness N Arthralgias or myalgias N Voiding problems N Color and quality of urine S Cardio-pulmonary Shortness of breath N Chest pain N Swelling in legs N Calf pain or tenderness N Cough (productive/non-productive) N Psychosocial Coping Y Need prescription renewals N Other issues : HE IS IN [employer], GETTING EXERCISE AND GETTING OUT FOR RIDES. APPETITE IS GOOD.NO COMPLAINTS AT THIS TIME. Education provided: SEE ABOVE Plan: Reinforced to patient/care-software deployment engineer to call facility 11/09 with any new/worsening signs and symptoms orconcerns or questions. Phone number provided. Pt verbalized understanding and is in agreement with plan. documented in this encounter Plan of Treatment Upcoming Encounters Date Type Department Care Team (Late st Contact Info) Description 09/19/2023 8:00 AM EDT Infusion Hematology Oncology at [address] [phone] 09/21/2023 9:30 AM EDT Office Visit Hematology [place] [address] Micha Givens Jr., MD [facility] [address] HEMATOLOGY [place] [address] 09/21/2023 10:30 AM EDT Clinical Support Hematology [place] [address] Danii Her RN 09/26/2023 8:30 AM EDT Infusion Hematology Oncology at [address] [phone] 10/03/2023 9:00 AM EDT Office Visit Hematology/Oncology at [address] [phone] Adrianne Ramon MD [facility] HEMATOLOGY [place] [address] Yael Merlos, KARLA [facility] HEMATOLOGY [place] [address] 10/03/2023 9:30 AM EDT Infusion Hematology Oncology at [address] [phone] 10/10/2023 8:30 AM EDT Infusion Hematology Oncology at [address] [phone] documented as of this encounter Visit Diagnoses Not on filedocumented in this encounter Care Teams Dowel Setting Machine Operator Relationship Specialty Start Date End Date Frederick Meade MD [address] [place] [address] PCP - General Family Medicine 11/29/17 documented as of this encounter
--- OUTSIDE RECORDS SUMMARY | 2023-09-17 01:35 | XMS_ITS | Encounter Summary ---
Author Organization [facility] [place] [address] Care Team Providers Care Forest Pathology Professor Name Role Phone Frederick Meade MD Primary Care Provider [phone] Reason for Visit * Reason Comments Chemotherapy C2D1 RCHOP * Treatment/Therapy Plan Authorization (Routine) - Closed [...] TC CYCLOPHOSPHAMIDE, 100MG (CYTOXAN) Adrianne Ramon MD [facility] [address] HEMATOLOGY [place] [address] [facility] [address] [place] [address] Referral ID Status Reason Start Date Expiration Date Visits Re quested Visits Authorized [id number] Closed 10/11/2022 10/11/2023 1 100 Encounter Details Date Type Department Care Team (Late st Contact Info) Description 11/08/2022 10:00 AM EDT Infusion Hematology Oncology at [address] [phone] Diffuse large B-cell lymphoma of [...] as of this encounter Progress Notes * Tania Rosales RN - 11/08/2022 10:00 AM EDT INFUSION THERAPY ADMINISTRATION NOTES DIAGNOSIS: DLBCL CYCLE #: C2D1 REASON FOR VISIT: IGOR Grider offers no complaints, he met with Dr. Ramon prior to infusion, ready for treatment. OBJECTIVE LAB DATA: completed 11/08 at [facility] Pre administration: Chemotherapy orders independently verified for drug name, route, and dosage per patient's height, weight and BSA by Tania Rosales, OSCAR and pharmacist onsite. REACTIONS (DESCRIPTION, TIME, INTERVENTION AND EFFECTIVENESS) none ASSESSMENT Rituxan administered at second time rate. Cheo was awake, alert and he tolerated treatment well. OnPro applied to right arm at 1458. Due to start deploying dose of medication at 1758. Patient instructed to remove at 1858 when meter reads empty and light is solid green. Verbal and written instruction given to patient. PLAN Return to clinic per routine. documented in this encounter Plan of Treatment Upcoming Encounters Date Type Department Care Team (Late st Contact Info) Description 09/19/2023 8:00 AM EDT Infusion Hematology Oncology at [address] [phone] 09/21/2023 9:30 AM EDT Office Visit Hematology [place] [address] Micha Givens Jr., MD [facility] DR HEMATOLOGY [place] [address] 09/21/2023 10:30 AM EDT Clinical Support Hematology [place] [address] Danii Her RN 09/26/2023 8:30 AM EDT Infusion Hematology Oncology at [address] [phone] 10/03/2023 9:00 AM EDT Office Visit Hematology/Oncology at [address] [phone] Adrianne Ramon MD [facility] HEMATOLOGY [place] [address] Yael Merlos, PIPE FITTER HELPER [facility] HEMATOLOGY [place] [address] 10/03/2023 9:30 AM EDT Infusion Hematology Oncology at [address] [phone] 10/10/2023 8:30 AM EDT Infusion Hematology Oncology at [address] [phone] documented as of this encounter Visit Diagnoses Diagnosis 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 documented in this encounter Administered Medications Inactive Administered Medications - up to 3 most recent administrations Medication Order MAR Action Action Date Dose Rate Site acetaminophen (Tylenol) tablet 650 mg 650 mg, Oral, ONCE, 1 dose, On Sun11/08/22 at 1030, Administer prior to riTUXimab., Routine Given 11/08/2022 10:27 AM EDT 650 mg aprepitant (CINVANTI) injection Emulsion 130 mg 130 mg, Intravenous, Administer over 2 Minutes, ONCE, 1 dose, On Sun11/08/22 at 1030, Alternative administration of IV push over 2 minutes is a recommendation from the carbide grinder. Administer prior to chemotherapy., Routine Given 11/08/2022 10:34 AM EDT 130 mg cyclophosphamide (Cytoxan) 1,000 mg in sodium chloride 0.9% 300 mL infusion 1,000 mg, Intravenous, ONCE, 1 dose, On Sun11/08/22 at 1130, Administer over 30 Minutes, Dose Ordered = 1065 mg (500 mg/m2). Pharmacist rounded dose per procedure. Warning Vesicant/Irritant Medication New Bag 11/08/2022 2:53 PM EDT 1,000 mg 600 mL/hr diphenhydrAMINE (Benadryl) capsule 50 mg 50 mg, Oral, ONCE, 1 dose, On Sun11/08/22 at 1030, Administer prior to riTUXimab, Routine Given 11/08/2022 10:27 AM EDT 50 mg DOXOrubicin (Adriamycin) injection 71 mg 71 mg (rounded from 70.9999 mg = 33.3333 mg/m2/dose ? 2.13 m2 Treatment Plan BSA from Recorded weight), Intravenous, ONCE, 1 dose, On Sun11/08/22 at 1130, Warning Vesicant/Irritant Medication Administer each syringe over a minimum of 3 minutes. Given 11/08/2022 2:31 PM EDT 71 mg heparin (pf) (porcine) (100 units/mL) flush 5 mL syringe 500 Units 500 Units, Intravenous, ONCE PRN, Starting on Sun11/08/22 at 1013, Until Sun11/08/22 at 1751, Line Care, Refer to Intravenous (IV) Procedure: Accessing Implanted Vascular Access Devices (724) procedure and/or Intravenous (IV) Job Aid: Adult Flushing & Catheter Care (4980) job aid for additional information regarding guidelines and administration., Routine Given 11/08/2022 3:26 PM EDT 500 Units palonosetron (Aloxi) (0.05 mg/mL) injection 0.25 mg 0.25 mg, Intravenous, ONCE, 1 dose, On Sun11/08/22 at 1030, Administer over 30 seconds., Routine Given 11/08/2022 10:35 AM EDT 0.25 mg pegfilgrastim (Neulasta Onpro) (6 mg/0.6 mL) injection kit 6 mg 6 mg, Subcutaneous, ONCE, 1 dose, On Sun11/08/22 at 1030, Allow the prefilled syringe co-packaged with the on-body injector to reach room temperature at least 30 minutes prior to administration., Routine, This agent is restricted to outpatient use. Is this drug being given as an outpatient? Yes Given 11/08/2022 2:58 PM EDT 6 mg predniSONE (Deltasone) tablet 100 mg 100 mg, Oral, ONCE, 1 dose, On Sun11/08/22 at 1030, Give first dose prior to riTUXimab, Routine Given 11/08/2022 10:27 AM EDT 100 mg riTUXimab-pvvr (Ruxience) 800 mg in sodium chloride 0.9% 400 mL infusion 800 mg, Intravenous, ONCE, 1 dose, On Sun11/08/22 at 1130, Dose Ordered = 798 mg (375 mg/m2). Pharmacist rounded dose per procedure. Administer Per Protocol, Is this product being used for treatment of malignant indication? Yes, Patient is a candidate for rapid infusion riTUXimab? Yes New Bag 11/08/2022 11:38 AM EDT 800 mg sodium chloride 0.9 % (flush) (BD PosiFlush Normal Saline 0.9) flush 5-20 mL 5-20 mL, Intravenous, EVERY 1 MIN PRN, Starting on Sun11/08/22 at 1013, Until Sun11/08/22 at 1751, Line Care, Flush pertains to all indwelling lines. Flush per protocol found in the job aid using the link provided on this medication record. Refer to Intravenous (IV) Job Aid: Adult Flushing & Catheter Care (0156) job aid for additional information regarding guidelines and administration., Routine Given 11/08/2022 3:26 PM EDT 20 mLs sodium chloride 0.9% infusion 150 mL/hr, Intravenous, CONTINUOUS, Starting on Sun11/08/22 at 1030, Until Sun11/08/22 at 1751 New Bag 11/08/2022 10:35 AM EDT 150 mL/hr 150 mL/hr vinCRIStine (Oncovin) 1 mg in sodium chloride 0.9% 26 mL infusion 1 mg, Intravenous, ONCE, 1 dose, On Sun11/08/22 at 1130, Administer over 5 Minutes, Maximum dose 2 mg Administer over 5 to 10 minutes via gravity concurrently with NS free flowing. Warning Vesicant/Irritant Medication New Bag 11/08/2022 2:41 PM EDT 1 mg 312 mL/hr documented in this encounter Care Teams Forest Pathology Professor Relationship Specialty Start Date End Date Frederick Meade MD [address] [place] [address] PCP - General Family Medicine 11/29/17 documented as of this encounter
--- OUTSIDE RECORDS SUMMARY | 2023-09-17 01:35 | XMS_ITS | Encounter Summary ---
Author Organization [facility] [place] [address] Care Team Providers Care Lockstitch Zipper Setter Name Role Phone Frederick Meade MD Primary Care Provider [phone] [phone] Encounter Details Date Type Department Care Team (Late st Contact Info) Description 11/08/2022 9:30 AM EDT Office Visit Hematology/Oncology at [address] [address] Adrianne Mera MD [facility] [address] [place] [address] Yael Merlos APRN 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 [...] Sign Reading Time Taken Comments Blood Pressure 131/59 11/08/2022 9:14 AM EDT Pulse 83 11/08/2022 9:14 AM EDT Temperature 36.3 ??C (97.3 ??F) 11/08/2022 9:14 AM ED T Respiratory Rate 16 11/08/2022 9:14 AM EDT Oxygen Saturation 97% 11/08/2022 9:14 AM EDT Inhaled Oxygen Concentration - - Weight 92.5 kg (204 lb) 11/08/2022 9:14 AM EDT Height 168.6 cm (5' 6.38) 11/08/2022 9:14 AM ED T Body Mass Index 32.55 11/08/2022 9:14 AM EDT documented in this encounter Progress Notes * Adrianne Mera MD - 11/08/2022 9:30 [place] [address] HEMATOLOGY PATIENT EVALUATION Patient Active Problem List Diagnosis Diffuse large B-cell lymphoma of lymph [...] ~2 weeks ago saw [facility] in [facility] and when to [facility]. No beds so sent to [facility] for [address] CAP, MRI,and [...] - unclear cause. - last COLO at [facility] was 01/17/2012. Cheo returns today with his Claritza. Son is not here today. He was hospitalized midcycle after cycle #1 with ANC of 20, and fever. He received broad-spectrum antibiotics until ANC recovered. Nosource of infection found. Discharged, but ongoing diarrhea until outpatient oral antibiotics were d iscontinued. Today he reports resolution of diarrhea and sx. Improved energy now. Ready for treatment. Urinary hesitency recurred after stopped flomax - he will discuss w/ Dr Meade tomorrow. 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 6 mos of adjuvant Lupron. Total dose 79.2 Gy completed 01/26/15 09/29/22 Large B Cell lymphoma - biopsy of tongue and needle of cervical LN. FISH from [facility] No MYCrearrangement and no fusion of MYC and IGH was observed, Initial EF 49% 10/18/22 C#1 RCHOP with neulasta - complicated with hospitalization and neutropenic fever (ANC = 20). . Sig diarrhea now resolved. 11/06/22 EF 52% 11/08/22 C#2 RCHOP dose reduced Adriamycin and cytoxan at 66% due to neutropenia with cycle #1. Vinca 1mg. Neulasta support PMHX: Pre- DM type II ~ 15 years - not requiring medications Hypertension 2015 Prostate CA - lupron and XRT Gout Diverticulosis without diverticulitis Anemia Cataract PSHX: Appendectomy as a child Tonsillectomy as a child 2013 bilateral ing surgery ROS Energy level: back to baseline Pain: none Appetite:good Unexpected weight loss or gain: wt loss w/ admission Change in adenopathy or other masses: see HPI Fevers/chills/sweats: see HPI Bruising/bleeding/melena:No Recent infections:see HPI Headaches:neg Vision:neg Hearing:neg Sinus: stuffy Seasonal Allergies: neg Mouth sores:neg Dentition: Good Swallowing: neg - back to normal. GERD : neg Nausea/vomiting: neg diarrhea/constipation: improving SOB/CONTEH/pulmonary sx: neg Cardiac symptoms: no sx: negative Skin rashes or petechiae:No Musculoskeletal complaints:No Extremities: Negative upper and lower bilaterally Neurologic symptoms:No Mental Status changes: neg Mood: Normal - but lots of thoughts in his head since on prednisone Sleep: no difficulty sleeping on prednisone - urinary frequency and hesitation. Nocturia q 2 hours - he will discuss w/ Dr Mack. MEDS: Outpatient Medications Marked as Taking for the 11/08/22 encounter (Office Visit) with Adrianne Mera MD Medication Sig Dispense Refill Psyllium Seed-Sucrose (0) Powder Take by mouth 2 times daily as needed. allopurinoL (Zyloprim) 100 mg tablet Take 200 mg by mouth daily. acyclovir (Zovirax) 400 mg tablet Take 1 tablet by mouth 2 times daily. 60 tablet 5 predniSONE (Deltasone) 50 mg tablet Take 2 tablets by mouth daily. Days 2-5 of each chemo cycle 8 tablet 5 amLODIPine (Norvasc) 5 mg tablet [...] Chewable Take 81 mg by mouth daily. Allergies: No Known Allergies FAMILY HISTORY: Mother: ETOH Cirrhosis Father: DM Sibs: Sister alive w/ DM ; 1/2 bro with DM, poorly controlled. Children: son pre-DM Other: negative SOCIAL HISTORY Personal: Claritza 37 years (third marriage, divorce and ) 4 children only 1 biologic. Son Cheo Freire. Enjoys [employer], [employer], race car, [employer]. Bowling [employer]. 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 Not a . ETOH: 1-3 beers per week Smoking: Quit 1985. Approximately 82-[id number] history Vaping or electronic cigarettes: denies Chewing tobacco: denies Marijuana or other recreational drug use: none HIPPA Contact Permission: John. Also OK to talk to Delia adult children. OK to leave message with medical information on home or cell phone: home phone PHYSICAL EXAM (not repeated today) BP 131/59 (Patient Position: Sitting) Pulse 83 Temp 36.3 ??C (97.3 ??F) (Temporal) Resp 16 Ht 168.6 cm (5' 6.38) Wt 92.5 kg (204 lb) SpO2 97% BMI 32.55 kg/m?? Body surface area is 2.08 meters squared. GENERAL: Cheo Freire appears well and is in no acute distress. ENT: Oral pharynx clear. Slight asymmetric smile and tongue deviates sligtly to L EYES: ELSI NECK: Supple with [address] on each side - rest has resolved. AXILLARY: no adenopathy INGUINAL LN: no adenopathy OTHER LYMPH: no adenopathy CARDIAC: Regular rate and rhythm without S3,S4 or murmurs. LUNGS: Clear to auscultation./percussion ABDOMEN: Soft and non-tender without hepatosplenomegaly or masses. EXTREMITIES: No cyanosis, clubbing, edema or calf tenderness. SKIN: No bruises or petechiae. NEUROLOGICAL: Alert and oriented to person, place and time. MUSCULOSKELETAL: No spinal or chest wall tenderness. Mediport - accessed LABORATORY STUDIES Recent Results (from the past 72 hour(s)) CBC (with Diff) Result Value Ref Range WBC 9.56 Hemoglobin 10.6 Hematocrit 32.0 Platelets 458 Neutr Abs (ANC) 7 Comprehensive metabolic panel (non-fasting) Result Value Ref Range Creatinine 1 Potassium 4.0 Total Bilirubin 0.1 AST 13 ALT 23 LDH 206 PATHOLOGY: Final Diagnosis A. Tongue base, left: -Large B-cell lymphoma, incompletely classified. See comment. Diagnosis Comment The findings are those of a large B-cell lymphoma that exhibits a non-germinal center immunophenotype and expresses Myc and BCL-2 protein (Double Expressor.) Flow cytometry ([id number]) supports this interpretation. FISH from [facility] No MYC rearrangement and no fusion of MYC and IGH was observed, CD3 (SP7, [employer]) Background T-cells CD20 (L26, [facility]) diffusely positive in Neoplastic B-cells PAX-5 (1EW, [facility]) diffusely positive in Neoplastic B-cells CD10 (SP67, [place] [facility]) Negative BCL-6 (G/191E/A8, [facility]) Positive MUM-1 (MUM1p, [employer]) Positive Myc (Y69, [employer]) Positive BCL-2 Oncoprotein (124, [place] [facility]) Positive Ki67 (MIB-1) (K2, [facility]) Greater than 95% of cells in cycle Cyclin D1(SP4-R, [place]) Negative SAPPHIRE JOSE (VAK5369-I, [employer]) Negative. DIAGNOSTICS: 11/06/22 ECHO after C#1 RCHOP EF = [...] investigation with ultrasound. CT CAP at [facility], report and images have been requested. ASSESSMENT/PLAN: Cheo Freire is a very pleasant 72 y.o. male referred by Dr Lg Ramírez of ENT for newly diagnosed large B cell lymphoma.. It was a pleasure to meet Cheo, his Claritza, and his son Cheo. I met Cheo yesterday. Please see that note. Today he had an echocardiogram and PET scan. We reviewed both of these results. He has Mediport scheduled for next week as well as PTI chemotherapy teaching and his first cycle of R-CHOP chemotherapy. Cheo returns today with his family for evaluation prior to cycle #2 of R-CHOP chemotherapy. Despite Neulasta prophylaxis, cycle #1 was complicated by hospitalization with neutropenic fever and significant GI complications. Today he has recovered and we all feel that he is ready for cycle #2. I will do cycle #2 with vincristine at 1 mg and Cytoxan and Adriamycin dosed at 66% of original dosing. We will check midcycle labs and see if we can increase dosing with future cycles. Cardiac -Cheo has no cardiac history. No [...] Dr. Matthew Barbosa earlier in the week. Ejection fraction on echocardiogram following cycle #1 was stable at 52%.. Dr Barbosa recommended no changes in therapy. We will plan echocardiogram every 2 cycles. Next echo is due following cycle #3 (week 12/04 or 12/13) Prednisone -100 mg p.o. daily on 8/26 and 10/15 only as a bridge to definitive chemotherapy. Furtherprednisone prescriptions will be given by SYSTEMS DESIGN ENGINEER, during PTI chemotherapy teaching Suspected MEHNAZ - Hgb drop 3gm in last 2 weeks. Taking oral iron 2 tabs per day. Stools have been chart reader recently. No COLO in last 10 years. Will add iron studies to labs today and check PET tomorrow.Will follow. Labs seem most consistent with anemia of chronic disease. Prostate Cancer -DAVE at this time Constipation - good response to metamucil. Vinca decreased to 1mg with vincristine. Neuropathy - none to date. N/V - none to date. Plan: Proceed w/ C#2 with cytoxan a and Adriamycin dose at 66% with vincristine at 1 mg. Neulasta support. Prednisone -100 mg X 4 days - reviewed. Ongoing cardiology follow-up with Dr. Matthew Barbosa No further allopurinol necessary ACV 400mg po bid Support with Onpro Claritin x1 week status post OnPro ID - acv prophy - add antibiotics only if neutropenic with midcycle checks. Because antibiotics cause severe diarrhea, I will not plan prophylactic antibiotics unless the patient proves neutropenia despite dose reductions. Midcycle check in 1 week and 2 weeks C#3 RCHOP in 3 weeks. ECHO following C#3 at [facility] - week of Dec 04 or Dec 11 I discussed all of the above with the patient and all of his questions were answered. Support and counseling as appropriate. This note was written or modified using [email or web address] voice recognition software. The final note was screened for spinning lathe operator automatic errors. Please excuse any remaining errors. Addendum staff message from Matthew Barbosa, Cardiology: Adrianne; Thanks for the message; will see if we can see him up in [place]. On review of his CT, he has a good amount of coronary calcium. Thus, I'll likely have a low threshold to get a stress test Agree with moving forward with cycle one at least; depending on EF afterwards will dictate aggressiveness of cardioprotection. Matthew total time: time in counselling: Copy Frederick Meade MD documented in this encounter Miscellaneous Notes * Addendum Note - Adrianne Mera MD - 11/08/2022 9:30 AM EDTAddended by: ADRIANNE MERA on: 11/08/2022 05:12 PM Modules accepted: Orders documented in this encounter Plan of Treatment Upcoming Encounters Date Type Department Care Team (Late st Contact Info) Description 09/19/2023 8:00 AM EDT Infusion Hematology Oncology at [address] [address] 09/21/2023 9:30 AM EDT Office Visit Hematology [place] [address] Micha Givens Jr., MD [facility] [place] [address] 09/21/2023 10:30 AM EDT Clinical Support [place]ematology [place] [address] Danii Her, RN 09/26/2023 8:30 AM EDT Infusion Hematology Oncology at [address] [address] 10/03/2023 9:00 AM EDT Office Visit Hematology/Oncology at [address] [address] Adrianne Mera MD [facility] [place] [address] Yael Merlos APRN [facility] [place] [address] 10/03/2023 9:30 AM EDT Infusion Hematology Oncology at [address] [address] 10/10/2023 8:30 AM EDT Infusion Hematology Oncology at [address] [address] documented as of this encounter Procedures Procedure Name Priority Date/Time Associated Diagnosis Comments CBC (WITH DIFF) Routine 11/08/2022 COMPREHENSIVE METABOLIC PANEL (NON-FASTING) Routine 11/08/2022 documented in this encounter Results * Comprehensive metabolic panel (non-fasting) (11/08/2022) Creatinine 1 Potassium 4.0 Total Bilirubin 0.1 AST 13 ALT 23 LDH 206 Blood 11/08/2022 Historical Provider CHEMISTRY ORDERAB LES * CBC (with Diff) (11/08/2022) WBC 9.56 Hemoglobin 10.6 Hematocrit 32.0 Platelets 458 Neutr Abs (ANC) 7 Blood 11/08/2022 Historical Provider HEMATOLOGY ORDERA BLES documented in this encounter Visit Diagnoses Diagnosis 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
--- OUTSIDE RECORDS SUMMARY | 2023-09-17 01:35 | XMS_ITS | Encounter Summary ---
Author Organization [facility] [place] [address] Care Team Providers Care District Fire Management Officer Name Role Phone Frederick Meade MD Primary Care Provider [phone] [phone] Reason for Visit * Reason Comments Chemotherapy C3D1 RCHOP * Treatment/Therapy Plan Authorization (Routine) - [...] TC CYCLOPHOSPHAMIDE, 100MG (CYTOXAN) Adrianne Ramon MD [facility] [address] [place] [address] [facility] [address] [place] [address] Referral ID Status Reason Start Date Expiration Date Visits Re quested Visits Authorized [id number] Closed 10/11/2022 10/11/2023 1 100 Encounter Details Date Type Department Care Team (Late st Contact Info) Description 11/29/2022 9:30 AM EDT Infusion Hematology Oncology at [address] [phone] Diffuse large B-cell lymphoma of [...] Progress Notes * Tania Rosales RN - 11/29/2022 9:30 AM EDT INFUSION THERAPY ADMINISTRATION NOTES DIAGNOSIS: DLBCL CYCLE #: C3D1 REASON FOR VISIT: IGOR Grider offers no complaints, he met with Dr. Ramon prior to infusion, ready for treatment. OBJECTIVE LAB DATA: completed 11/29 at [facility] Pre administration: Chemotherapy orders independently verified for drug name, route, and dosage per patient's height, weight and BSA by Tania Rosales, OSCAR and pharmacist onsite. REACTIONS (DESCRIPTION, TIME, INTERVENTION AND EFFECTIVENESS) none ASSESSMENT Rituxan administered at second time rate. Cheo was awake, alert and he tolerated treatment well. OnPro applied to right arm at . Due to start deploying dose of medication at . Patient instructed to remove at when meter reads empty and light is solid green. Verbal and written instruction given topatient. PLAN Return to clinic per routine. documented in this encounter Plan of Treatment Upcoming Encounters Date Type Department Care Team (Late st Contact Info) Description 09/19/2023 8:00 AM EDT Infusion Hematology Oncology at [address] [address] 09/21/2023 9:30 AM EDT Office Visit Hematology [place] [address] Micha Givens Jr., MD [facility] DR [place] [address] 09/21/2023 10:30 AM EDT Clinical Support [place]ematology [place] [address] Danii Her RN 09/26/2023 8:30 AM EDT Infusion Hematology Oncology at [address] [address] 10/03/2023 9:00 AM EDT Office Visit Hematology/Oncology at [address] [address] Adrianne Ramon MD [facility] [place] [address] Yael Merlos, KARLA [facility] [place] [address] 10/03/2023 9:30 AM EDT Infusion Hematology Oncology at [address] [phone] 10/10/2023 8:30 AM EDT Infusion Hematology Oncology at [address] [phone] documented as of this encounter Visit Diagnoses Diagnosis 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 documented in this encounter Administered Medications Inactive Administered Medications - up to 3 most recent administrations Medication Order MAR Action Action Date Dose Rate Site acetaminophen (Tylenol) tablet 650 mg 650 mg, Oral, ONCE, 1 dose, On Sun11/29/22 at 1100, Administer prior to riTUXimab., Routine Given 11/29/2022 11:03 AM EDT 650 mg aprepitant (CINVANTI) injection Emulsion 130 mg 130 mg, Intravenous, Administer over 2 Minutes, ONCE, 1 dose, On Sun11/29/22 at 1100, Alternative administration of IV push over 2 minutes is a recommendation from the covered button maker. Administer prior to chemotherapy., Routine Given 11/29/2022 11:11 AM EDT 130 mg cyclophosphamide (Cytoxan) 1,000 mg in sodium chloride 0.9% 300 mL infusion 1,000 mg, Intravenous, ONCE, 1 dose, On Sun11/29/22 at 1200, Administer over 30 Minutes, Dose Ordered = 1065 mg (500 mg/m2). Pharmacist rounded dose per procedure. Warning Vesicant/Irritant Medication New Bag 11/29/2022 2:45 PM EDT 1,000 mg 600 mL/hr diphenhydrAMINE (Benadryl) capsule 50 mg 50 mg, Oral, ONCE, 1 dose, On Sun11/29/22 at 1100, Administer prior to riTUXimab, Routine Given 11/29/2022 11:03 AM EDT 50 mg DOXOrubicin (Adriamycin) injection 71 mg 71 mg (rounded from 70.9999 mg = 33.3333 mg/m2/dose ? 2.13 m2 Treatment Plan BSA from Recorded weight), Intravenous, ONCE, 1 dose, On Sun11/29/22 at 1200, Warning Vesicant/Irritant Medication Administer each syringe over a minimum of 3 minutes. Given 11/29/2022 2:27 PM EDT 71 mg heparin (pf) (porcine) (100 units/mL) flush 5 mL syringe 500 Units 500 Units, Intravenous, ONCE PRN, Starting on Sun11/29/22 at 1033, Until Sun11/29/22 at 1724, Line Care, Refer to Intravenous (IV) Procedure: Accessing Implanted Vascular Access Devices (654) procedure and/or Intravenous (IV) Job Aid: Adult Flushing & Catheter Care (0923) job aid for additional information regarding guidelines and administration., Routine Given 11/29/2022 3:19 PM EDT 500 Units palonosetron (Aloxi) (0.05 mg/mL) injection 0.25 mg 0.25 mg, Intravenous, ONCE, 1 dose, On Sun11/29/22 at 1100, Administer over 30 seconds., Routine Given 11/29/2022 11:08 AM EDT 0.25 mg pegfilgrastim (Neulasta Onpro) (6 mg/0.6 mL) injection kit 6 mg 6 mg, Subcutaneous, ONCE, 1 dose, On Sun11/29/22 at 1100, Allow the prefilled syringe co-packaged with the on-body injector to reach room temperature at least 30 minutes prior to administration., Routine, This agent is restricted to outpatient use. Is this drug being given as an outpatient? Yes Given 11/29/2022 2:52 PM EDT 6 mg Right Arm predniSONE (Deltasone) tablet 100 mg 100 mg, Oral, ONCE, 1 dose, On Sun11/29/22 at 1100, Give first dose prior to riTUXimab, Routine Given 11/29/2022 11:03 AM EDT 100 mg riTUXimab-pvvr (Ruxience) 800 mg in sodium chloride 0.9% 400 mL infusion 800 mg, Intravenous, ONCE, 1 dose, On Sun11/29/22 at 1200, Dose Ordered = 798 mg (375 mg/m2). Pharmacist rounded dose per procedure. Administer Per Protocol, Is this product being used for treatment of malignant indication? Yes, Patient is a candidate for rapid infusion riTUXimab? Yes New Bag 11/29/2022 12:38 PM EDT 800 mg sodium chloride 0.9 % (flush) (BD PosiFlush Normal Saline 0.9) flush 5-20 mL 5-20 mL, Intravenous, EVERY 1 MIN PRN, Starting on Sun11/29/22 at 1033, Until Sun11/29/22 at 1724, Line Care, Flush pertains to all indwelling lines. Flush per protocol found in the job aid using the link provided on this medication record. Refer to Intravenous (IV) Job Aid: Adult Flushing & Catheter Care (7669) job aid for additional information regarding guidelines and administration., Routine Given 11/29/2022 3:18 PM EDT 20 mLs sodium chloride 0.9% infusion 150 mL/hr, Intravenous, CONTINUOUS, Starting on Sun11/29/22 at 1100, Until Sun11/29/22 at 1724 New Bag 11/29/2022 12:37 PM EDT 150 mL/hr 150 mL/hr vinCRIStine (Oncovin) 1 mg in sodium chloride 0.9% 26 mL infusion 1 mg, Intravenous, ONCE, 1 dose, On Sun11/29/22 at 1200, Administer over 5 Minutes, Maximum dose 2 mg Administer over 5 to 10 minutes via gravity concurrently with NS free flowing. Warning Vesicant/Irritant Medication New Bag 11/29/2022 2:35 PM EDT 1 mg 312 mL/hr documented in this encounter Care Teams District Fire Management Officer Relationship Specialty Start Date End Date Frederick Meade MD [address] [facility] [place] [address] PCP - General Family Medicine 11/29/17 documented as of this encounter
--- OUTSIDE RECORDS SUMMARY | 2023-09-17 01:35 | XMS_ITS | Encounter Summary ---
Author Organization [facility] Address [facility] [place] [address] Care Team Providers Care Shower Maid Name Role Phone Frederick Meade MD Primary Care Provider +1 [phone] Reason for Visit * Reason Onset Date Comments Other 10/30/[address] admission to [facility] Encounter Details Date Type Department Care Team (Late st Contact Info) Description 10/30/2022 Telephone Hematology/Oncology at [address] [phone] Lucía Nelson RN Other (FUV questions after admission to [facility]) Social History Tobacco Use Types Packs/Day Years [...] encounter Miscellaneous Notes * Telephone Encounter - Lucía Nelson RN - 10/30/2022 10:39 AM EDT Cheo Freire [phone] Cheo was admitted to [facility] 10/25-10/29 for fevers and neutropenia. Missed his pita apt that Shayy Jarrett APRN was going to do last week. [facility] Cycle 1 10/18. Cycle 2- scheduled for 11/08. WBC recovered to 4.02 and ANC 3300 at discharge. Sent home with Levaquin 750mg/day x 3 days and Flagyl 500mg TID for 7 days. D/C madhuri scanned into chart. Called Cheo to check in, Claritza also on the phone. He reports that he also had bowel/Hemoridissues and urination issues while in the hospital. He was having diarrhea and an external Hemorid is aggravated. Bowels now have a bit more substance and are dark green and he is back to doing his metamucil 2x/day. He did have an episode in his bathroom today when having a BM (standing up after brushing his teeth- has a depends on) he felt lightheaded and almost passed out. He thinks this is due to the hot temperature in the bathroom and felt better once the tempeture was back to normal with the use of fans. He had a hard time urinating in the hospital too and had a catheter for a period of time. They toldhim they would refer him to Dr. Arenas in urology- still working on getting that scheduled. Home health is going out today. He is eating well and sleeping well. They wanted to make sure we were updated with the current situation and appreciated the call. They are aware of FUV/inf apts 11/08.Encouraged to call back with other questions/concerns. documented in this encounter Plan of Treatment Upcoming Encounters Date Type Department Care Team (Late st Contact Info) Description 09/19/2023 8:00 AM EDT Infusion Hematology Oncology at [address] [phone] 09/21/2023 9:30 AM EDT Office Visit Hematology [place] [address] Micha Givens Jr., MD [facility] [address] [place] [address] 09/21/2023 10:30 AM EDT Clinical Support Hematology [place] [address] Danii Her RN 09/26/2023 8:30 AM EDT Infusion Hematology Oncology at [address] [address] 10/03/2023 9:00 AM EDT Office Visit Hematology/Oncology at [address] [address] Adrianne Ramon MD [facility] [place] [address] Yael Merlos, KARLA [facility] [place] [address] 10/03/2023 9:30 AM EDT Infusion Hematology Oncology at [address] [address] 10/10/2023 8:30 AM EDT Infusion Hematology Oncology at [address] [phone] documented as of this encounter Visit Diagnoses Not on filedocumented in this encounter Care Teams Shower Maid Relationship Specialty Start Date End Date Frederick Meade MD [address] [place] [address] PCP - General Family Medicine 11/29/17 documented as of this encounter
--- OUTSIDE RECORDS SUMMARY | 2023-09-17 01:35 | XMS_ITS | Encounter Summary ---
Author Organization Count Includes [facility] [address] Care Team Providers Care Geoscience Laboratory Technician Name Role Phone Frederick Meade MD Primary Care Provider [phone] [phone] Encounter Details Date Type Department Care Team (Late st Contact Info) Description 11/16/2022 Orders Only Hematology [place] [phone] Adrianne Ramon MD [facility] [address] [place] [address] High risk medication use; 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 [...] 8:00 AM EDT Infusion Hematology Oncology at [address] [phone] 09/21/2023 9:30 AM EDT Office Visit Hematology [place] [address] Micha Givens Jr., MD [facility] [place] [address] 09/21/2023 10:30 AM EDT Clinical Support Hematology [place] [address] Danii Her RN 09/26/2023 8:30 AM EDT Infusion Hematology Oncology at [address] [address] 10/03/2023 9:00 AM EDT Office Visit Hematology/Oncology at [address] [address] Adrianne Ramon MD [facility] [place] [address] Yael Merlos APRN [facility] [place] [address] 10/03/2023 9:30 AM EDT Infusion Hematology Oncology at [address] [phone] 10/10/2023 8:30 AM EDT Infusion Hematology Oncology at [address] [phone] documented as of this encounter Visit Diagnoses Diagnosis High risk medication use Encounter for long-term (current) use of other medications 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
--- OUTSIDE RECORDS SUMMARY | 2023-09-17 01:35 | XMS_ITS | Encounter Summary ---
Author Organization [facility] [place] [address] Care Team Providers Care Manager Neonatal Name Role Phone Frederick Meade MD Primary Care Provider [phone] [phone] Reason for Visit * Reason Onset Date Comments Other 11/15/2022 To ER Encounter Details Date Type Department Care Team (Late st Contact Info) Description 11/15/2022 Telephone Hematology/Oncology at [address] [phone] Polly Orellana RN Other (To ER) Social History Tobacco Use Types Packs/Day Years [...] Telephone Encounter - Polly Orellana RN - 11/15/2022 12:46 PM EDT Pt came to clinic to see Dr. Ramon, while taking vital signs pt started to shake uncontrollably,b/p 91/50. Dr. Ramon ask he go to ER. Called [facility] Er and gave report to RN. Recent notes faxed. documented in this encounter Plan of Treatment Upcoming Encounters Date Type Department Care Team (Late st Contact Info) Description 09/19/2023 8:00 AM EDT Infusion Hematology Oncology at [address] [address] 09/21/2023 9:30 AM EDT Office Visit [place]ematology [place] [address] Micha Givens Jr., MD [facility] HEMATOLOGY [place] [address] 09/21/2023 10:30 AM EDT Clinical Support [place] [address] Danii Her RN 09/26/2023 8:30 AM EDT Infusion Hematology Oncology at [address] [address] 10/03/2023 9:00 AM EDT Office Visit Hematology/Oncology at [address] [phone] Adrianne Ramon MD [facility] HEMATOLOGY [place] [address] Yael Merlos APRN [facility] HEMATOLOGY [place] [address] 10/03/2023 9:30 AM EDT Infusion Hematology Oncology at [address] [address] 10/10/2023 8:30 AM EDT Infusion Hematology Oncology at [address] [phone] documented as of this encounter Visit Diagnoses Not on filedocumented in this encounter Care Teams Manager Neonatal Relationship Specialty Start Date End Date Frederick Meade MD [address] [place] [address] PCP - General Family Medicine 11/29/17 documented as of this encounter
--- OUTSIDE RECORDS SUMMARY | 2023-09-17 01:35 | XMS_ITS | Encounter Summary ---
Author Organization [facility] [place] [address] Care Team Providers Care Insurance Verify Rep Name Role Phone Frederick Meade MD Primary Care Provider [phone] [phone] Encounter Details Date Type Department Care Team (Latest Contact Info) Description 11/08/2022 Travel Social History Tobacco Use Types Packs/Day [...] 8:00 AM EDT Infusion Hematology Oncology at [address] [phone] 09/21/2023 9:30 AM EDT Office Visit Hematology [place] [address] Micha Givens Jr., MD [facility] HEMATOLOGY [place] [address] 09/21/2023 10:30 AM EDT Clinical Support Hematology [place] [address] Danii Her RN 09/26/2023 8:30 AM EDT Infusion Hematology Oncology at [address] [phone] 10/03/2023 9:00 AM EDT Office Visit Hematology/Oncology at [address] [phone] Adrianne Ramon MD [facility] HEMATOLOGY [place] [address] Yael Merlos APRN [facility] HEMATOLOGY [place] [address] 10/03/2023 9:30 AM EDT Infusion Hematology Oncology at [address] [phone] 10/10/2023 8:30 AM EDT Infusion Hematology Oncology at [address] [address] documented as of this encounter Visit Diagnoses Not on filedocumented in this encounter Care Teams Insurance Verify Rep Relationship Specialty Start Date End Date Frederick Meade MD [address] [place] [address] PCP - General Family Medicine 11/29/17 documented as of this encounter
--- OUTSIDE RECORDS SUMMARY | 2023-09-17 01:35 | XMS_ITS | Encounter Summary ---
Author Organization [facility] [place] [address] Care Team Providers Care Animal Scientist Name Role Phone Frederick Meade MD Primary Care Provider [phone] -[phone] Reason for Visit * Reason Onset Date Comments Follow-up 10/26/2022 Encounter Details Date Type Department Care Team (Late st Contact Info) Description 10/26/2022 Telephone Hematology/Oncology at [address] [phone] Tania Rosales, RN Follow-up Social History Tobacco Use Types Packs/Day Years [...] medical appointments or from getting medications? No 08/2 04/2022 In the past 12 months, has l [...] encounter Miscellaneous Notes * Telephone Encounter - Tania Rosales RN - 10/26/2022 9:14 AM EDT Cheo states he is doing better than yesterday. He is still admitted at [facility] and relays that the care plan is to keep him admitted until his WBC go up. Per the [facility] progress note, the goal is for an ANC greater than 500 and he is stable, labs this morning his ANC was 90. His next FUV here is 11/08. Cheo was thankful for the call. documented in this encounter Plan of Treatment Upcoming Encounters Date Type Department Care Team (Late st Contact Info) Description 09/19/2023 8:00 AM EDT Infusion Hematology Oncology at [address] [address] 09/21/2023 9:30 AM EDT Office Visit Hematology [place] [address] Micha Givens Jr., MD [facility] HEMATOLOGY [place] [address] 09/21/2023 10:30 AM EDT Clinical Support Hematology [place] [phone] Danii Her RN 09/26/2023 8:30 AM EDT Infusion Hematology Oncology at [address] [phone] 10/03/2023 9:00 AM EDT Office Visit Hematology/Oncology at [address] [phone] Adrianne Ramon MD [facility] HEMATOLOGY [place] [address] Yael Merlos APRN [facility] HEMATOLOGY [place] [address] 10/03/2023 9:30 AM EDT Infusion Hematology Oncology at [address] [phone] 10/10/2023 8:30 AM EDT Infusion Hematology Oncology at [address] [phone] documented as of this encounter Visit Diagnoses Not on filedocumented in this encounter Care Teams Animal Scientist Relationship Specialty Start Date End Date Frederick Meade MD [address] [place] [address] PCP - General Family Medicine 11/29/17 documented as of this encounter
--- OUTSIDE RECORDS SUMMARY | 2023-09-17 01:35 | XMS_ITS | Encounter Summary ---
Author Organization [facility] [place] [address] Care Team Providers Care Clinical Administrator Name Role Phone Frederick Meade MD Primary Care Provider +1 -[phone] Reason for Visit * Reason Onset Date Comments Questions 11/14/2022 Encounter Details Date Type Department Care Team (Late st Contact Info) Description 11/14/2022 Telephone Hematology/Oncology at [address] [phone] Colt Ardon, RN Questions Social History Tobacco Use Types Packs/Day Years [...] Telephone Encounter - Colt Ardon RN - 11/14/2022 11:09 AM EDT Reviewed with Cheo Freire and spouse okay to have stools as long as they are normal in color and consistency, which they are. Discussed backing off metamucil amount but will wait to see if BMs continue. They see Dr Ramon tomorrow for FUV and can discuss further with her then. ----- Message from Grace Oconnor sent at 11/14/2022 10:17 AM EDT ----- Cheo's Claritza called in today about Cheo having [facility] They are soft formed, not loose He has been taking Metamucil regularly, his wants to make sure that is normal Best call back number [phone] documented in this encounter Plan of Treatment Upcoming Encounters Date Type Department Care Team (Late st Contact Info) Description 09/19/2023 8:00 AM EDT Infusion Hematology Oncology at [address] [address] 09/21/2023 9:30 AM EDT Office Visit Hematology [place] [phone] Micha Givens Jr., MD [facility] DR HEMATOLOGY [place] [address] 09/21/2023 10:30 AM EDT Clinical Support Hematology [place] [address] Danii Her RN 09/26/2023 8:30 AM EDT Infusion Hematology Oncology at [address] [phone] 10/03/2023 9:00 AM EDT Office Visit Hematology/Oncology at [address] [phone] Adrianne Ramon MD [facility] DR HEMATOLOGY [place] [address] Yael Merlos, KARLA [facility] DR HEMATOLOGY [place] [address] 10/03/2023 9:30 AM EDT Infusion Hematology Oncology at [address] [phone] 10/10/2023 8:30 AM EDT Infusion Hematology Oncology at [address] [phone] documented as of this encounter Visit Diagnoses Not on filedocumented in this encounter Care Teams Clinical Administrator Relationship Specialty Start Date End Date Frederick Meade MD [address] [place] [address] PCP - General Family Medicine 11/29/17 documented as of this encounter
--- OUTSIDE RECORDS SUMMARY | 2023-09-17 01:35 | XMS_ITS | Encounter Summary ---
Author Organization [facility] [place] [address] Care Team Providers Care Art Psychotherapist Or Therapist Name Role Phone Frederick Meade MD Primary Care Provider [phone] -[phone] Encounter Details Date Type Department Care Team (Latest Contact Info) Description 11/06/2022 Travel Social History Tobacco Use Types Packs/Day [...] 8:00 AM EDT Infusion Hematology Oncology at [address] [phone] 09/21/2023 9:30 AM EDT Office Visit Hematology [place] [address] Micha Givens Jr., MD [facility] [place] [address] 09/21/2023 10:30 AM EDT Clinical Support Hematology [place] [address] Danii Her RN 09/26/2023 8:30 AM EDT Infusion Hematology Oncology at [address] [phone] 10/03/2023 9:00 AM EDT Office Visit Hematology/Oncology at [address] [phone] Adrianne Ramon MD [facility] [place] [address] Yael Merlos APRN [facility] [place] [address] 10/03/2023 9:30 AM EDT Infusion Hematology Oncology at [address] [phone] 10/10/2023 8:30 AM EDT Infusion Hematology Oncology at [address] [phone] documented as of this encounter Visit Diagnoses Not on filedocumented in this encounter Care Teams Art Psychotherapist Or Therapist Relationship Specialty Start Date End Date Frederick Meade MD [address] [place] [address] PCP - General Family Medicine 11/29/17 documented as of this encounter
--- OUTSIDE RECORDS SUMMARY | 2023-09-17 01:35 | XMS_ITS | Encounter Summary ---
Author Organization [facility] Address [facility] [place] [address] Care Team Providers Care Hand Spring Former Name Role Phone Frederick Meade MD Primary Care Provider +1 -[phone] Reason for Visit * Reason Onset Date Comments Follow-up 10/25/2022 Pt admitted to [facility] Encounter Details Date Type Department Care Team (Late st Contact Info) Description 10/25/2022 Telephone Hematology/Oncology at [address] [phone] Colt Ardon RN Follow-up (Pt admitted to [facility] ) Social History Tobacco Use Types Packs/Day [...] Telephone Encounter - Colt Ardon RN - 10/25/2022 9:39 AM EDT Cheo Freire's calling to report pt is getting admitted to [facility] with dehydration and low WBC. He did end up having a bowel movement ?last night but this morning couldn't urinate and had abdominal pressure again. They went to [facility] ED. Dr Mcbride at [facility] called and is admitted him, stating hisANC was 20. Pt had cycle 1 RCHOP with Neulasta On-pro on 10/18 for his DLBCL. Team made aware. Will check in on pt's disposition tomorrow. documented in this encounter Plan of Treatment Upcoming Encounters Date Type Department Care Team (Late st Contact Info) Description 09/19/2023 8:00 AM EDT Infusion Hematology Oncology at [address] [address] 09/21/2023 9:30 AM EDT Office Visit Hematology [place] [address] Micha Givens Jr., MD [facility] [address] HEMATOLOGY [place] [address] 09/21/2023 10:30 AM EDT Clinical Support Hematology [place] [address] Danii Her RN 09/26/2023 8:30 AM EDT Infusion Hematology Oncology at [address] [phone] 10/03/2023 9:00 AM EDT Office Visit Hematology/Oncology at [address] [phone] Adrianne Ramon MD [facility] [address] HEMATOLOGY [place] [address] Yael Merlos APRN [facility] [address] HEMATOLOGY [place] [address] 10/03/2023 9:30 AM EDT Infusion Hematology Oncology at [address] [phone] 10/10/2023 8:30 AM EDT Infusion Hematology Oncology at [address] [phone] documented as of this encounter Visit Diagnoses Not on filedocumented in this encounter Care Teams Hand Spring Former Relationship Specialty Start Date End Date Frederick Meade MD [address] [place] [address] [address] [place] [address] PCP - General Family Medicine 11/29/17 documented as of this encounter
--- OUTSIDE RECORDS SUMMARY | 2023-09-17 01:35 | XMS_ITS | Encounter Summary ---
Author Organization [facility] [place] [address] Care Team Providers Care Injection Wax Molder Name Role Phone Frederick Meade MD Primary Care Provider [phone] -[phone] Encounter Details Date Type Department Care Team (Latest Contact Info) Description 10/17/2022 Travel Social History Tobacco Use Types Packs/Day [...] 8:00 AM EDT Infusion Hematology Oncology at [address] [phone] 09/21/2023 9:30 AM EDT Office Visit Hematology [place] [address] Micha Givens Jr., MD [facility] HEMATOLOGY [place] [address] 09/21/2023 10:30 AM EDT Clinical Support Hematology [place] [address] Danii Her RN 09/26/2023 8:30 AM EDT Infusion Hematology Oncology at [address] [phone] 10/03/2023 9:00 AM EDT Office Visit Hematology/Oncology at [address] [phone] Adrianne Ramon MD [facility] HEMATOLOGY [place] [address] Yael Merlos APRN [facility] HEMATOLOGY [place] [address] 10/03/2023 9:30 AM EDT Infusion Hematology Oncology at [address] [phone] 10/10/2023 8:30 AM EDT Infusion Hematology Oncology at [address] [phone] documented as of this encounter Visit Diagnoses Not on filedocumented in this encounter Care Teams Injection Wax Molder Relationship Specialty Start Date End Date Frederick Meade MD [address] [place] [address] PCP - General Family Medicine 11/29/17 documented as of this encounter
--- OUTSIDE RECORDS SUMMARY | 2023-09-17 01:35 | XMS_ITS | Encounter Summary ---
Author Organization [facility] [place] [address] Care Team Providers Care Quality Checker Name Role Phone Frederick Meade MD Primary Care Provider [phone] -[phone] Encounter Details Date Type Department Care Team (Latest Contact Info) Description 11/15/2022 Travel Social History Tobacco Use Types Packs/Day [...] AM EDT Infusion Hematology Oncology at [address] [phone] 09/21/2023 9:30 AM EDT Office Visit Hematology [place] [address] Micha Givens Jr., MD [facility] HEMATOLOGY [place] [address] 09/21/2023 10:30 AM EDT Clinical Support Hematology [place] [address] Danii Her RN 09/26/2023 8:30 AM EDT Infusion Hematology Oncology at [address] [phone] 10/03/2023 9:00 AM EDT Office Visit Hematology/Oncology at [address] [phone] [facility] HEMATOLOGY [place] [address] [facility] HEMATOLOGY [place] [address] 10/03/2023 9:30 AM EDT Infusion Hematology Oncology at [address] [phone] 10/10/2023 8:30 AM EDT Infusion Hematology Oncology at [address] [phone] documented as of this encounter Visit Diagnoses Not on filedocumented in this encounter Care Teams Quality Checker Relationship Specialty Start Date End Date Frederick Meade MD [address] [place] [address] PCP - General Family Medicine 11/29/17 documented as of this encounter
--- OUTSIDE RECORDS SUMMARY | 2023-09-17 01:35 | XMS_ITS | Encounter Summary ---
[facility] Organization [facility] [place] [address] Care Team Providers Care Apparatus Lineman Name Role Phone Frederick Meade MD Primary Care Provider [phone] [phone] Reason for Visit * Reason Onset Date Comments Follow-up 11/01/2022 Encounter Details Date Type Department Care Team (Late st Contact Info) Description 11/01/2022 Telephone Hematology/Oncology at [address] [phone] Polly Orellana RN Follow-up Social History Tobacco Use Types [...] Telephone Encounter - Polly Orellana RN - 11/01/2022 8:20 AM EDT Spoke with patient and . He is doing better, had semi formed stool brown in color today. No fever or chills. Finish up antibiotics. Eating and drinking well. Increase in energy. Dr. Ramon needs them to go to [facility] next Sunday to see Dr. Barbosa. They feel if things continue to get better therewill be no issue, they will let us know if things change. documented in this encounter Plan of Treatment Upcoming Encounters Date Type Department Care Team (Late st Contact Info) Description 09/19/2023 8:00 AM EDT Infusion Hematology Oncology at [address] [phone] 09/21/2023 9:30 AM EDT Office Visit Hematology [place] [address] Micha Givens Jr., MD [facility] DR HEMATOLOGY [place] [address] 09/21/2023 10:30 AM EDT Clinical Support Hematology [place] [phone] Danii Her RN 09/26/2023 8:30 AM EDT Infusion Hematology Oncology at [address] [phone] 10/03/2023 9:00 AM EDT Office Visit Hematology/Oncology at [address] [phone] Adrianne Ramon MD [facility] DR [place] [address] Yael Merlos APRN [facility] [place] [address] 10/03/2023 9:30 AM EDT Infusion Hematology Oncology at [address] [phone] 10/10/2023 8:30 AM EDT Infusion Hematology Oncology at [address] [phone] documented as of this encounter Visit Diagnoses Not on filedocumented in this encounter Care Teams Apparatus Lineman Relationship Specialty Start Date End Date Frederick Meade MD [address] [place] [address] PCP - General Family Medicine 11/29/17 documented as of this encounter
--- OUTSIDE RECORDS SUMMARY | 2023-09-17 01:35 | XMS_ITS | Encounter Summary ---
[place] [address] Care Team Providers Care Instrument Technician Name Role Phone Frederick Meade MD Primary Care Provider [phone] Encounter Details Date Type Department Care Team (Late st Contact Info) Description 10/24/2022 Telephone Hematology [place] [phone] Castro Jimenez MD [facility] HEMATOLOGY/[place] [address] Social History Tobacco Use Types Packs/Day Years [...] encounter Miscellaneous Notes * Telephone Encounter - Castro Jimenez MD - 10/24/2022 9:21 PM EDT I had a phone call from the spouse Claritza. 72 yo male with DLBCL, who started RCHOP on 10/18/22. He has had difficulty moving his bowel since mid day today. Last time of BM is small amount yesterday and it was brown color. He has some cramps in the lower abdomen but it is not getting worse. He has no nausea or vomiting. He has good appetite and able to keep up on taking liquids. No fever, chill. He is a little sweaty. He is not on bowel regimen. I think he is experiencing constipation likely from vincristine. I recommended trying miralax for now and discuss further if the constipation does not resolve or develop nausea, vomiting or severe abdominal pain. CC: Dr. Ramon, . office Castro Jimenez MD [facility] Hematology Oncology Fellow Page [phone] documented in this encounter Plan of Treatment Upcoming Encounters Date Type Department Care Team (Late st Contact Info) Description 09/19/2023 8:00 AM EDT Infusion Hematology Oncology at [address] [phone] 09/21/2023 9:30 AM EDT Office Visit Hematology [place] [address] Micha Givens Jr., MD [facility] DR [place] [address] 09/21/2023 10:30 AM EDT Clinical Support Hematology [place] [address] Danii Her, RN 09/26/2023 8:30 AM EDT Infusion Hematology Oncology at [address] [phone] 10/03/2023 9:00 AM EDT Office Visit Hematology/Oncology at [address] [phone] Adrianne Ramon MD [facility] DR [place] [address] Yael Merlos APRN [facility] DR [place] [address] 10/03/2023 9:30 AM EDT Infusion Hematology Oncology at [address] [phone] 10/10/2023 8:30 AM EDT Infusion Hematology Oncology at [address] [phone] documented as of this encounter Visit Diagnoses Not on filedocumented in this encounter Care Teams Instrument Technician Relationship Specialty Start Date End Date Frederick Meade MD [address] [place] [address] PCP - General Family Medicine 11/29/17 documented as of this encounter
--- OUTSIDE RECORDS SUMMARY | 2023-09-17 01:35 | XMS_ITS | Encounter Summary ---
Author Organization [facility] [place] [address] Care Team Providers Care Plan Rep Name Role Phone Frederick Meade MD Primary Care Provider [phone] Encounter Details Date Type Department Care Team (Late st Contact Info) Description 10/19/2022 Telephone Hematology/Oncology at [address] [phone] Brenda Priest, RN Social History [...] Telephone Encounter - Brenda Priest RN - 10/19/2022 8:36 AM EDT POST CHEMO CALL Diagnosis: DLBCL Treatment: RCHOP #1 + OnPro on 10/19 Assessment: Call to patient for post-chemo check in. Spoke with patient's and patient. Mr. Freire is doing well. Slept well last night. Denies nausea/vomiting, ate breakfast this morning. BM this morning. verified that OnPro is securely attached and light flashing as it should. Recommendations/Plan: Verified that they have our phone numbers if needed. Advised that they continue to watch for side effects and call with any questions/concerns. documented in this encounter Plan of Treatment Upcoming Encounters Date Type Department Care Team (Late st Contact Info) Description 09/19/2023 8:00 AM EDT Infusion Hematology Oncology at [address] [phone] 09/21/2023 9:30 AM EDT Office Visit Hematology [place] [address] Micha Givens Jr., MD [facility] HEMATOLOGY [place] [address] 09/21/2023 10:30 AM EDT Clinical Support Hematology [place] [address] Danii Her, RN 09/26/2023 8:30 AM EDT Infusion Hematology Oncology at [address] [phone] 10/03/2023 9:00 AM EDT Office Visit Hematology/Oncology at [address] [phone] Adrianne Ramon MD [facility] DR HEMATOLOGY [place] [address] Yael Merlos APRN [facility] DR HEMATOLOGY [place] [address] 10/03/2023 9:30 AM EDT Infusion Hematology Oncology at [address] [phone] 10/10/2023 8:30 AM EDT Infusion Hematology Oncology at [address] [phone] documented as of this encounter Visit Diagnoses Not on filedocumented in this encounter Care Teams Plan Rep Relationship Specialty Start Date End Date Frederick Meade MD [address] [place] [address] PCP - General Family Medicine 11/29/17 documented as of this encounter
--- OUTSIDE RECORDS SUMMARY | 2023-09-17 01:35 | XMS_ITS | Encounter Summary ---
Author Organization [facility] [place] [address] Care Team Providers Care Internetworking Technician Name Role Phone Frederick Meade MD Primary Care Provider [phone] [phone] Encounter Details Date Type Department Care Team (Late st Contact Info) Description 11/16/2022 Telephone Hematology/Oncology at [address] [phone] Brenda Priest, RN Social History [...] Telephone Encounter - Brenda Priest RN - 11/16/2022 9:12 AM EDT Images from the original note were not included. Diagnosis: DLBCL, MEHNAZ Treatment: C2D1 RCHOP given on 11/08/22 Reason for Call: Received call from OSCAR Marcelo at [facility] notifying us that patient was admitted [facility] yesterday and is positive for C-Diff. Dr. Ramon and Yael Merlos, SENIOR MARKETING MANAGER updated via this note. documented in this encounter Plan of Treatment Upcoming Encounters Date Type Department Care Team (Late st Contact Info) Description 09/19/2023 8:00 AM EDT Infusion Hematology Oncology at [address] [phone] 09/21/2023 9:30 AM EDT Office Visit Hematology [place] [address] Micha Givens Jr., MD [facility] [place] [address] 09/21/2023 10:30 AM EDT Clinical Support [place]ematology [place] [address] Danii Her RN 09/26/2023 8:30 AM EDT Infusion Hematology Oncology at [address] [phone] 10/03/2023 9:00 AM EDT Office Visit Hematology/Oncology at [address] [phone] Adrianne Ramon MD [facility] DR [place] [address] Yael Merlos APRN [facility] [place] [address] 10/03/2023 9:30 AM EDT Infusion Hematology Oncology at [address] [phone] 10/10/2023 8:30 AM EDT Infusion Hematology Oncology at [address] [phone] documented as of this encounter Visit Diagnoses Not on filedocumented in this encounter Care Teams Internetworking Technician Relationship Specialty Start Date End Date Frederick Meade MD [address] [place] [address] [address] [place] [address] PCP - General Family Medicine 11/29/17 documented as of this encounter
--- OUTSIDE RECORDS SUMMARY | 2023-09-17 01:35 | XMS_ITS | Encounter Summary ---
Author [place] [address] Care Team Providers Care Side Puller Name Role Phone Frederick Meade MD Primary Care Provider [phone] Encounter Details Date Type Department Care Team (Late st Contact Info) Description 10/25/2022 Telephone Hematology [place] [phone] Davey Magdaleno MD [facility] DR HEMATOLOGY/[place] [address] Social History Tobacco Use Types Packs/Day Years [...] place to sleep or slept in a [place] health care facility (including now)? No 10/11/2022 Sex and Gender Information Value Date Recorded Sex Assigned at Not on file Gender Identity Not on file Sexual Orientation Not on file documented as of this encounter Miscellaneous Notes * Telephone Encounter - Davey Magdaleno MD - 10/25/2022 9:48 PM EDT I received a call from Dr. Mcbride (Hospitalist) at [facility] this morning in regards to Cheo. 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 He presented to [facility] with an oral temp of 38.6. His ANC is 20. No evidence of pneumonia or UTI. He did call in yesterday complaining of abdominal discomfort. For this reason I have recommended a ct abd/pelvis and broadening of abx coverage to include anaerobes if an abscess/intraabdominal process is pre sent. I have also recommended starting fluconazole for ppx given his neutropenia. 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 He is known to have extensive disease to include the neck, chest, abdomen and spleen. He was diagnosed in Septemberof this year (the ) via biopsy of the tonsil and post cervical lymph node. PATH was consistent with large B cell lymphoma (double hit). He saw Dr. Ramon, on 10/12 and started [facility] in [facility] on 10/18 with neupogen. I am told from that he presented with an oral temp of 38.8 C and chills for one day. I see from chart review that he called complaining of abdominal discomfort. He is normotensive, slightly tachycardic to the 90s with an 02 sat of 96% on room air. Not endorsing abdominal pain, n/v/d, chest pain, cough or sob. Labs are significant for a lactate of 2.4, wbc of 0.17, anc of 20, hgb 9.8, plt 82k. BMP/LFTs WNL per report. He had a cxray without focal opacification. UA without bacteria. documented in this encounter Plan of Treatment Upcoming Encounters Date Type Department Care Team (Late st Contact Info) Description 09/19/2023 8:00 AM EDT Infusion Hematology Oncology at [address] [phone] 09/21/2023 9:30 AM EDT Office Visit Hematology [place] [address] Micha Givens Jr., MD [facility] [place]ATOLOGY [place] [address] 09/21/2023 10:30 AM EDT Clinical Support Hematology [place] [address] Danii Her RN 09/26/2023 8:30 AM EDT Infusion Hematology Oncology at [address] [phone] 10/03/2023 9:00 AM EDT Office Visit Hematology/Oncology at [address] [phone] Adrianne Ramon MD [facility] DR HEMATOLOGY [place] [address] Yael Merlos APRN [facility] DR [place]EM[place]Y [place] [address] 10/03/2023 9:30 AM EDT Infusion Hematology Oncology at [address] [phone] 10/10/2023 8:30 AM EDT Infusion Hematology Oncology at [address] [phone] documented as of this encounter Visit Diagnoses Not on filedocumented in this encounter Care Teams Side Puller Relationship Specialty Start Date End Date Frederick Meade MD [address] [place] [address] PCP - General Family Medicine 11/29/17 documented as of this encounter
--- OUTSIDE RECORDS SUMMARY | 2023-09-17 01:35 | XMS_ITS | Encounter Summary ---
Author Organization [facility] [place] [address] Care Team Providers Care Petrophysical Engineer Name Role Phone Frederick Meade MD Primary Care Provider [phone] [phone] Reason for Visit * Reason Comments Chemotherapy Teaching Encounter Details Date Type Department Care Team (Late st Contact Info) Description 10/18/2022 8:00 AM EDT Office Visit Hematology/Oncology at [address] [phone] Adrianne Ramon MD [facility] [place] [address] Yael Merlos, HOSPITAL WARD CLERK [facility] [place] [address] 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 [...] place to sleep or slept in a group home (including now)? No 10/11/2022 Sex and Gender Information Value Date Recorded Sex Assigned at Not on file Gender Identity Not on file Sexual Orientation Not on file documented as of this encounter Last Filed Vital Signs Vital Sign Reading Time Taken Comments Blood Pressure 145/68 10/18/2022 8:01 AM EDT Pulse 76 10/18/2022 8:01 AM EDT Temperature 36.3 ??C (97.3 ??F) 10/18/2022 8:01 AM ED T Respiratory Rate 20 10/18/2022 8:01 AM EDT Oxygen Saturation 98% 10/18/2022 8:01 AM EDT Inhaled Oxygen Concentration - - Weight 93.2 kg (205 lb 6.4 oz) 10/18/2022 8:01 A M EDT Height 168.6 cm (5' 6.38) 10/18/2022 8:01 AM ED T Body Mass Index 32.78 10/18/2022 8:01 AM EDT documented in this encounter Progress Notes * Yael Merlos, HOSPITAL WARD CLERK - 10/18/2022 8:00 AM EDT PATIENT ID: Cheo Freire is a 72 y.o. male with newly diagnosed Diffuse Large B-cell Lymphoma who presents today for chemotherapy teaching and is accompanied by his and son. The plan is for R-CHOP given every 21 days for 6 cycles. The following information was reviewed with the patient andfamily. Chemotherapy Drugs: Rituxan IV infusion lasting multiple hours given on day 1 of cycle with the possibility of decreasing infusion time to 90 minutes with subsequent cycles Cyclophosphamide IV infused over 30 minutes on day 1 of cycle Adriamycin IV push each syringe over a minimum of 3 minutes on day 1 of cycle Vincristine IV infused over 5 minutes on day 1 of cycle Prednisone 50mg tablets. Take 2 tablets by mouth once daily with breakfast days 2-5. First dose will be given in clinic with chemotherapy on day 1 of each cycle Chemotherapy Schedule: chemotherapy is given in the outpatient setting on day 1 of a 21-day cycle Laboratory Tests: Prior to start of each cycle of chemotherapy: complete blood count, comprehensive metabolic profile, LDH, uric acid Mid-cycle check: complete blood count [cycle #1 only] Restaging PET/CT following completion of four cycles of therapy Clinic Visits: at initiation of each chemotherapy cycle and with mid-cycle check for cycle #1 only Possible Side Effects include, but are not limited to: Rituxan: infusion reactions, neutropenia, thrombopenia, lymphopenia, risk of reactivation of viral illnesses, anaphylaxis, PML, fatigue Cyclophosphamide: fatigue, N/V, immunosuppression, increased risk for infection, hair thinning/loss, rare hemorrhagic cystitis, cardiac dysfunction and pulmonary fibrosis. Adriamycin: fatigue, N/V, bone marrow suppression, risk for infection, alopecia, cardiomyopathy, oral sores, extravasation Vincristine: constipation, peripheral neuropathy, jaw pain Prednisone: increased energy, difficulty sleeping, increased appetite, weight gain, thrush, mood changes or irritability, hyperglycemia, hypertension, ramirez facies and body habitus changes, gastritis,increased risk of infection, cataracts and osteoporosis. Medications: please pickle water pump operator the following prescriptions before you start treatment Allopurinol 300mg tablet - Take 1 tablet by mouth daily x 14 following chemotherapy [days 2-15] to help protect kidneys and process the cellular debris as lymphoma cells in response to chemotherapy, then resume usual Allopurinol dose of 200mg/day Prednisone 50mg tablets. Take 2 tablets by mouth once daily with breakfast days 2-5. First dose will be given in clinic with chemotherapy on day 1 of each cycle Acyclovir 400mg tablet - Take 1 tablet by mouth twice daily throughout chemotherapy course to minimize reactivation of viral illnesses Compazine 10mg tablets - Take 1 tablet every 8 hours as needed for breakthrough nausea/vomiting. Claritin 10 mg tablets - Take 1 tablet by mouth daily for 7 days following each cycle of chemotherapy to minimize bone pain from Neulasta ONPRO Stool softener - Take 1 tablet by mouth daily to twice daily as needed to minimize constipation Senna tablet - Take 2 tablet by mouth daily to twice daily as needed to maintain daily bowel movement and avoid constipation Additional Education Tumor Lysis Syndrome: discussed the importance of hydration and allopurinol to TLS prophylaxis Chemotherapy induced alopecia discussed Neutropenic Precautions: reviewed neutropenic precautions and the role that Neulasta ONPRO will play in decreasing the severity and duration of neutropenia following R-CHOP chemotherapy. Cheo was encouraged to monitor his temperature daily and to promptly report and signs or symptoms of infection. He has emergency contact numbers to call should questions/concerns arise. Hydration/Nutrition: Discussed the importance of adequate hydration, caloric and protein intake to heal from the effects of chemotherapy Fatigue and Exercise: Fatigue can be cumulative, meaning it can become worse with each treatment. Ways to manage fatigue include light exercise, maintaining a daily routine with rest periods, allowing your body to recover and avoiding overexertion. Safety while undergoing Chemotherapy women, children and pets should avoid contact with chemotherapy or contaminated waste Caregivers should always were gloves if coming in contact with bodily fluids Sexual Activity Chemotherapy can be harmful to an unborn baby. The use of control during cancer treatment is recommended if there is child bearing potential. Women should not breastfeed while undergoing chemotherapy. Traces of chemotherapy in bodily fluids may be present up to 72 hrs after receiving treatment. A barrier method, such as a condom, is recommended for intercourse during this time. Plan Cheo Freire was provided with patient education sheets on these chemotherapeutic agents to review at home. We discussed the [employer] booklets: Eating Hints: Before, During and After Cancer Treatment; Taking Time: Support for People with Cancer and Chemotherapy and You: Support for People with C ancer. Cheo was given an opportunity to ask questions and verbalized an understanding of the chemotherapy side effects and treatment self-care strategies and consent to proceed with treatment as planned. Chemotherapy is scheduled to begin today, October 18, 2022. Testing/Diagnostics Baseline blood work was reviewed and is adequate for treatment Symptom Management/Supportive care Nausea prevention: Rx for Compazine Constipation prevention: Recommended Colace and Senna Neulasta OnPro will be applied prior to discharge from clinic each cycle for administration 27 hours following completion of therapy. Cheo was advised to take Claritin daily for 1 week following chemotherapy to minimize bone pain associated with Neulasta ONPRO. The entire 60 minute visit was spent in counseling and education of the above information. All questions were answered to satisfaction. Cheo Freire was counseled on how to call for any further questions or concerns. Yael Merlos, MSN, HOSPITAL WARD CLERK Nurse Practitioner Section of Hematology [facility] Cc: Frederick Meade MD documented in this encounter Plan of Treatment Upcoming Encounters Date Type Department Care Team (Late st Contact Info) Description 09/19/2023 8:00 AM EDT Infusion Hematology Oncology at [address] [phone] 09/21/2023 9:30 AM EDT Office Visit Hematology [place] [address] Micha Givens Jr., MD [facility] [place] [address] 09/21/2023 10:30 AM EDT Clinical Support Hematology [place] [phone] Danii Her RN 09/26/2023 8:30 AM EDT Infusion Hematology Oncology at [address] [phone] 10/03/2023 9:00 AM EDT Office Visit Hematology/Oncology at [address] [phone] Adrianne Ramon MD [facility] [place] [address] Yael Merlos APRN [facility] [place] [address] 10/03/2023 9:30 AM EDT Infusion Hematology Oncology at [address] [phone] 10/10/2023 8:30 AM EDT Infusion Hematology Oncology at [address] [phone] documented as of this encounter Visit Diagnoses Diagnosis 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 documented in this encounter Care Teams Petrophysical Engineer Relationship Specialty Start Date End Date Frederick Meade MD [address] [place] [address] PCP - General Family Medicine 11/29/17 documented as of this encounter
--- OUTSIDE RECORDS SUMMARY | 2023-09-17 01:35 | XMS_ITS | Encounter Summary ---
Author Organization [facility] Address [facility] [place] [address] Care Team Providers Care Cloud Systems Architect Name Role Phone rFederick Meade MD Primary Care Provider [phone] Encounter Details Date Type Department Care Team (Late st Contact Info) Description 10/18/2022 Notes Only Hematology/Oncology at [address] [phone] Shelley Cason, [facility] Social History Tobacco [...] of this encounter Progress Notes * Shelley Cason, [facility] - 10/18/2022 11:54 AM EDT Reason for Referral: Brief assessment of social and emotional needs. Met with Cheo, his Claritza and his son Cheo during his first infusion visit today to introduce myself and role of social service worker to assess/address barriers to getting to and through treatments; address support needs and connect with community services and resources as needed. Family/Social Supports: Cheo identified his as his primary support. His son Cheo lives in the area. He has 3 stepchildren in the area too. Living Situation/Daily Activities/Transportation: Cheo manages his daily chores and activities. He does not expect any issues with transportation. Work/Finances/Insurance: Cheo and his are retired. He has Medicare and [employer] for insurance. They did not have any concerns re finances or insurance. Advance Directives: Cheo has completed his advance directive. Requested a copy for his record is he wants it on file there. Utilization of Community Resources: None at this time. Adjustment to Illness/Mental Health Concerns: Cheo indicated he is coping as best he can. His shared this all is a bit overwhelming. They feels supported by their family. Offered support. Identified Needs: Cheo did not identify any specific needs at this time. Referrals:None at this time. Social Work Interventions: Brief assessment Supportive Counseling Advance care planning Plan: Informed pt of [facility] availability and contact information. Will follow to assess/address psychosocial needs. FRANCISCO J Wisdom, INSPECTION CLERK, OSW-C Team Truck Driver [facility] documented in this encounter Plan of Treatment Upcoming Encounters Date Type Department Care Team (Late st Contact Info) Description 09/19/2023 8:00 AM EDT Infusion Hematology Oncology at [address] [phone] 09/21/2023 9:30 AM EDT Office Visit Hematology [place] [address] Micha Givens Jr., MD [facility] [address] HEMATOLOGY [place] [address] 09/21/2023 10:30 AM EDT Clinical Support Hematology [place] [address] Danii Her RN 09/26/2023 8:30 AM EDT Infusion Hematology Oncology at [address] [phone] 10/03/2023 9:00 AM EDT Office Visit Hematology/Oncology at [address] [phone] Adrianne Ramon MD [facility] [address] HEMATOLOGY [place] [address] Yael Merlos, KARLA [facility] HEMATOLOGY [place] [address] 10/03/2023 9:30 AM EDT Infusion Hematology Oncology at [address] [address] 10/10/2023 8:30 AM EDT Infusion Hematology Oncology at [address] [address] documented as of this encounter Visit Diagnoses Not on filedocumented in this encounter Care Teams Cloud Systems Architect Relationship Specialty Start Date End Date Frederick Meade MD [address] [place] [address] PCP - General Family Medicine 11/29/17 documented as of this encounter
--- OUTSIDE RECORDS SUMMARY | 2023-09-17 01:35 | XMS_ITS | Encounter Summary ---
Author Organization [facility] [place] [address] Care Team Providers Care Merchandising Execution Manager Name Role Phone Frederick Meade MD Primary Care Provider [phone] Reason for Visit * Reason Comments Follow-up Encounter Details Date Type Department Care Team (Late st Contact Info) Description 11/22/2022 11:30 AM EDT Office Visit Hematology/Oncology at [address] [phone] Adrianne Ramon MD [facility] [place] [address] Yael Merlos, BATTERY INSTALLER [facility] [place] [address] 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; Iron deficiency anemia, unspecified iron deficiency anemia type; Pneumonia due to infectious organism, unspecified laterality, unspecified part of lung Social History Tobacco Use Types Packs/Day Years [...] place to sleep or slept in a intermediate (including now)? No 10/11/2022 Sex and Gender Information Value Date Recorded Sex Assigned at Not on file Gender Identity Not on file Sexual Orientation Not on file documented as of this encounter Last Filed Vital Signs Vital Sign Reading Time Taken Comments Blood Pressure 125/63 11/22/2022 11:19 AM EDT Pulse 74 11/22/2022 11:19 AM EDT Temperature 36.6 ??C (97.8 ??F) 11/22/2022 11:19 AM E DT Respiratory Rate 18 11/22/2022 11:19 AM EDT Oxygen Saturation 99% 11/22/2022 11:19 AM EDT Inhaled Oxygen Concentration - - Weight 95 kg (209 lb 6.4 oz) 11/22/2022 11:19 AM EDT Height 168.6 cm (5' 6.38) 11/22/2022 11:19 AM E DT Body Mass Index 33.41 11/22/2022 11:19 AM EDT documented in this encounter Progress Notes * Yael Merlos APRN - 11/22/2022 11:30 AM EDT Hematology Clinic [facility] [place] [address] HEMATOLOGY PATIENT EVALUATION Patient Active Problem List [...] ago saw [facility] and when to [facility]. No beds so sent to [facility] for [address] CAP, MRI,and [...] x7 days with nice response. Pathology from [facility] reports large B-cell lymphoma. Double expresser. FISH for translocations are pending. Tongue swelling. No wt loss. Eating and drinking OK. No fevers, infections, No NS. Pain in neck.Prednisone 60mg daily X 7 days. I feel great on prednisone last day of prednisone is today Took iron supplements per PCP - unclear cause. - last COLO at [facility] was 01/17/2012. INTERIM HISTORY OF PRESENT ILLNESS: Cheo returns to clinic today in routine follow up. He was recently hospitalized after presenting to clinic last week hypotensive with shaking chills. His noted increased number of bowel movements, although not diarrhea. Given concern for infection we sent him to the emergency room. He was diagnosed with c-diff and discharged home on treatment with Dificid and has been trying to work through the career transition specialist trying to obtain a supply to complete his treatment course or an alternative due to cost. He has one more day supply of Dificid remaining and needs an additional 5 days of treatment. His bowel movements are soft and semi formed without abdominal pain or bleeding. No fevers. Energyis improving though he continues to tire easily. No new concerns. 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 6 mos of adjuvant Lupron. Total dose 79.2 Gy completed 01/26/15 09/29/22 Large B Cell lymphoma - biopsy of tongue and needle of cervical LN. FISH from [place] No MYCrearrangement and no fusion of MYC [...] 2013 bilateral ing surgery ROS Energy level: improving following discharge Pain: No Appetite: improved Unexpected weight loss [...] Oral, DAILY aspirin 81 mg, Oral, DAILY cefPODOXime (Vantin) 200 mg tablet colchicine (COLCRYS) 0.6 mg, Oral, DAILY PRN diphenoxylate-atropine (Lomotil) 2.5-0.025 mg tablet 1 tablet, Oral, 4 TIMES DAILY PRN ferrous sulfate (FEROSUL) 650 mg, Oral, DAILY fidaxomicin (DIFICID) 200 mg, Oral, 2 TIMES DAILY Ibuprofen 200 mg Capsule Oral, 4 TIMES DAILY PRN, Reported on 05/24/2016 lactobacillus (BACID) Capsule 1 tablet, Oral, DAILY ONE TOUCH DELICA 33 gauge Misc USE TO TEST DAILY ONETOUCH ULTRA BLUE TEST STRIP Strip USE TO TEST DAILY ONETOUCH ULTRASOFT LANCETS Misc USE TO TEST DAILY potassium chloride ER (Klor-Con M) 20 mEq ER micro-encapsulated crystal tablet predniSONE (DELTASONE) 100 mg, Oral, DAILY, Days 2-5 of each chemo cycle prochlorperazine (COMPAZINE) 10 mg, Oral, EVERY 6 HOURS PRN Psyllium Seed-Sucrose (0) Powder Oral, 2 TIMES DAILY PRN [START ON 12/02/2022] vancomycin (VANCOCIN) 125 mg, Oral, 2 TIMES DAILY vancomycin (VANCOCIN) 125 mg, Oral, 4 TIMES DAILY ALLERGIES: No Known Allergies FAMILY HISTORY: Mother: ETOH Cirrhosis Father: DM Sibs: Sister alive w/ DM ; 1/2 bro with DM, poorly controlled. Children: son pre-DM Other: negative SOCIAL HISTORY Personal: Claritza 37 years (third marriage, divorce and ) 4 children only 1 biologic. Son Cheo Freire. Enjoys [email or web address], [employer], [employer], [email or web address]. [employer]. 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 Not a . ETOH: 1-3 beers per week Smoking: Quit 1985. Approximately [id number] history Vaping or electronic cigarettes: denies Chewing tobacco: denies Marijuana or other recreational drug use: none HIPPA Contact Permission: Claritza and Cheo. Also OK to talk to Delia adult children. OK to leave message with medical information on home or cell phone: home phone PHYSICAL EXAM 11/22/2022 Oncology Vitals Weight (kg) 94.983 kg Weight (lb) 209 lb 6.4 oz Height 168.6 cm BSA (Calculated - sq m) 2.11 sq meters BMI (Calculated) 33.41 Temp 36.6 ??C (97.8 ??F) Temp src Temporal Heart Rate 74 Heart Rate Source SaO2 Resp 18 BP 125/63 BP Location Right arm Patient Position Sitting SpO2 99 % Pain Level 0 Karnofsky Score GENERAL: Cheo Freire is a delightful 72-year old male in [facility]. He is accompanied to the clinic by his today. ENT: Oral pharynx clear. Slight asymmetric smile and tongue deviates slightly to L EYES: ELSI NECK: Supple without palpable masses appreciated on exam AXILLARY: no adenopathy INGUINAL LN: no adenopathy OTHER LYMPH: no adenopathy CARDIAC: Regular rate and rhythm without S3,S4 or murmurs. LUNGS: Clear to auscultation/percussion bilaterally ABDOMEN: Soft and non-tender without hepatosplenomegaly or palpable masses. NABS EXTREMITIES: No cyanosis, clubbing, edema or calf tenderness. SKIN: No bruises or petechiae. NEUROLOGICAL: Alert and oriented to person, place and time. MUSCULOSKELETAL: No spinal or chest wall tenderness. LABORATORY STUDIES 11/22/22 00:00 WBC 15.41 (H) (E) RBC 2.90 (L) (E) Hemoglobin 8.8 (L) (E) Hematocrit 27.0 (L) (E) Platelets 220 (E) Neutr Abs (ANC) 12.94 (H) (E) Sodium 134 (L) (E) Potassium 3.7 (E) BUN 8 (E) Creatinine 0.9 (E) Calcium 8.3 (E) Glucose Lvl 160 (H) (E) Total Protein 5.2 (L) (E) Albumin 2.0 (L) (E) Total Bilirubin 0.1 (L) (E) Alk Phos 139 (H) (E) AST 20 (E) ALT 17 (E) (H): Data is abnormally high (L): Data is abnormally low (E): External lab result PATHOLOGY: Final Diagnosis A. Tongue base, left: -Large B-cell lymphoma, incompletely classified. See comment. Diagnosis Comment The findings are those of a large B-cell lymphoma that exhibits a non-germinal center immunophenotype and expresses Myc and BCL-2 protein (Double Expressor.) Flow cytometry ([id number]) supports this interpretation. FISH from [facility] [place] No MYC rearrangement and no fusion of MYC and IGH was observed, CD3 (SP7, [employer]) Background T-cells CD20 (L26, [place]) diffusely positive in Neoplastic B-cells PAX-5 (1EW, [employer]) diffusely positive in Neoplastic B-cells CD10 (SP67, [place]) Negative BCL-6 (G/191E/A8, [place]) Positive MUM-1 (MUM1p, [employer]) Positive Myc (Y69, [employer]) Positive BCL-2 Oncoprotein (124, [place]) Positive Ki67 (MIB-1) (K2, [employer]) Greater than 95% of cells in cycle Cyclin D1(SP4-R, [place]) Negative SAPPHIRE JOSE ([id number], [employer]) Negative. DIAGNOSTICS: 11/06/22 ECHO after C#1 [...] undergo investigation with ultrasound. CT CAP at [facility], report and images have been requested. ASSESSMENT/PLAN: [...] continue with current dose modification and given hi c-diff, will prophylax with Vanco 125mg PO BID throughout the duration of his therapy.. Cardiac -Cheo has no cardiac history. No [...] due following cycle #3 (week 12/04 or 12/13). Suspected MEHNAZ - Hgb drop 3gm in last 2 weeks. No overt bleeding. Taking oral iron 2 tabs per day. Stools have been health promotion manager recently. No COLO in last 10 years. Will follow. Labs seem most consistent with anemia of chronic disease. Prostate Cancer - DAVE at this time Constipation - good response to metamucil. Vinca decreased to 1mg with cycle #2 C-diff colitis - unable to afford the remaining 5 day course of Dificid prescribed at discharge. Will prescribe Vanco 125mg PO QID x 5 more days then decrease to prophylactic BID dosing for the remainder of his treatment. No prophylactic broad spectrum antimicrobials. Neuropathy - none to date. N/V - none to date. Plan: Complete treatment for C-diff as prescribed. Complete treatment with Vantin for pneumonia. RTC in 1 week for evaluation for next cycle of R-CHOP with modified dosing [Cytoxan and Adriamycin dose at 66% with vincristine at 1 mg]. Neulasta support with Claritin daily x 7 days following administration to minimize bone pain. No further allopurinol necessary Continue ACV 400mg po bid Given c-diff, will hold on prophylactic antibiotics Repeat ECHO following the week of Dec 04 or Dec 11 [s/p 3 cycles R-CHOP] I discussed all of the above with the patient and all of his questions were answered. Support and counseling as appropriate. Yael Merlos, MSN, BATTERY INSTALLER Nurse practitioner Section of Hematology/Oncology Copy Frederick Meade MD documented in this encounter Plan of Treatment Upcoming Encounters Date Type Department Care Team (Late st Contact Info) Description 09/19/2023 8:00 AM EDT Infusion Hematology Oncology at [address] [phone] 09/21/2023 9:30 AM EDT Office Visit Hematology [place] [address] Micha Givens Jr., MD [facility] [place] [address] 09/21/2023 10:30 AM EDT Clinical Support [place]ematology [place] [address] Danii Her, RN 09/26/2023 8:30 AM EDT Infusion Hematology Oncology at [address] [phone] 10/03/2023 9:00 AM EDT Office Visit Hematology/Oncology at [address] [phone] Adrianne Ramon MD [facility] [place] [address] Yael Merlos APRN [facility] [place] [address] 10/03/2023 9:30 AM EDT Infusion Hematology Oncology at [address] [phone] 10/10/2023 8:30 AM EDT Infusion Hematology Oncology at [address] [phone] documented as of this encounter Procedures Procedure Name Priority Date/Time Associated Diagnosis Comments CBC (WITH DIFF) Routine 11/22/2022 COMPREHENSIVE METABOLIC PANEL (NON-FASTING) Routine 11/22/2022 documented in this encounter Results * (ABNORMAL) CBC (with Diff) (11/22/2022) WBC 15.41(H) RBC 2.90(L) Hemoglobin 8.8(L) Hematocrit 27.0(L) Platelets 220 Neutr Abs (ANC) 12.94(H) Blood 11/22/2022 Historical Provider HEMATOLOGY ORDERA BLES * (ABNORMAL) Comprehensive metabolic panel (non-fasting) (11/22/2022) Glucose Lvl 160(H) BUN 8 Creatinine 0.9 Sodium 134(L) Potassium 3.7 Calcium 8.3 Total Protein 5.2(L) Albumin 2.0(L) Total Bilirubin 0.1(L) Alk Phos 139(H) AST 20 ALT 17 Blood 11/22/2022 Historical Provider CHEMISTRY ORDERAB LES documented in this encounter Visit Diagnoses Diagnosis 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 Iron deficiency anemia, unspecified iron deficiency anemia type Pneumonia due to infectious organism, unspecified laterality, unspecified part of lung documented in this encounter Care Teams Merchandising Execution Manager Relationship Specialty Start Date End Date Frederick Meade MD [address] [place] [address] [address] [place] [address] PCP - General Family Medicine 11/29/17 documented as of this encounter
--- OUTSIDE RECORDS SUMMARY | 2023-09-17 01:35 | XMS_ITS | Encounter Summary ---
Author Organization [facility] [place] [address] Care Team Providers Care Plasterer Journeyman Name Role Phone Frederick Meade MD Primary Care Provider [phone] Encounter Details Date Type Department Care Team (Late st Contact Info) Description 11/29/2022 9:00 AM EDT Office Visit Hematology/Oncology at [address] [phone] Adrianne Ramon MD [facility] DR HEMATOLOGY [place] [address] Yael Merlos APRN [facility] HEMATOLOGY [place] [address] 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; Iron deficiency anemia, unspecified iron deficiency anemia type; High risk medication use; Non-Hodgkin lymphoma of lymph nodes of multiple [...] Sign Reading Time Taken Comments Blood Pressure 129/69 11/29/2022 8:53 AM EDT Pulse 93 11/29/2022 8:53 AM EDT Temperature 36.5 ??C (97.7 ??F) 11/29/2022 8:53 AM ED T Respiratory Rate 16 11/29/2022 8:53 AM EDT Oxygen Saturation 95% 11/29/2022 8:53 AM EDT Inhaled Oxygen Concentration - - Weight 91.6 kg (202 lb) 11/29/2022 8:53 AM EDT Height 168.6 cm (5' 6.38) 11/29/2022 8:53 AM ED T Body Mass Index 32.23 11/29/2022 8:53 AM EDT documented in this encounter Progress Notes * Adrianne Ramon MD - 11/29/2022 9:00 AM EDT Hematology Clinic [facility] [place] [address] HEMATOLOGY PATIENT EVALUATION Patient Active Problem List [...] ~2 weeks ago saw [facility] and when to [facility]. No beds so sent to [facility] for [address] CAP, MRI,and [...] - unclear cause. - last COLO at [facility] was 01/17/2012. INTERIM HISTORY OF PRESENT ILLNESS: Cheo returns to clinic today in routine follow up. He is doing so much [...] and needle of cervical LN. FISH from [facility] No MYCrearrangement and no fusion of MYC [...] ferrous sulfate (FEROSUL) 650 mg, Oral, DAILY Ibuprofen 200 mg Capsule Oral, 4 [...] Oral, DAILY vancomycin (VANCOCIN) 125 mg, Oral, 4 TIMES DAILY ALLERGIES: No Known Allergies FAMILY HISTORY: Mother: ETOH Cirrhosis Father: DM Sibs: Sister alive w/ DM ; 1/2 bro with DM, poorly controlled. Children: son pre-DM Other: negative SOCIAL HISTORY Personal: Claritza 37 years (third marriage, divorce and ) 4 children only 1 biologic. Son Cheo Freire. Enjoys [employer], [employer], [employer], [employer]. [employer]. 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 Not a . ETOH: 1-3 beers per week Smoking: Quit 1985. Approximately [id number] history Vaping or electronic cigarettes: denies Chewing tobacco: denies Marijuana or other recreational drug use: none HIPPA Contact Permission: Claritza and Cheo. Also OK to talk to Delia adult children. OK to leave message with medical information on home or cell phone: home phone PHYSICAL EXAM BP 129/69 (Patient Position: Sitting) Pulse 93 Temp 36.5 ??C (97.7 ??F) (Temporal) Resp 16 Ht 168.6 cm (5' 6.38) Wt 91.6 kg (202 lb) SpO2 95% BMI 32.23 kg/m?? GENERAL: Cheo Freire is a delightful 72-year old male in [facility]. He is accompanied to the [...] and BCL-2 protein (Double Expressor.) Flow cytometry ([id number]) supports this interpretation. FISH from [facility] No MYC rearrangement and no fusion of MYC and IGH was observed, CD3 (SP7, Thermo Scientific) Background T-cells CD20 (L26, Bolt) diffusely positive in Neoplastic B-cells PAX-5 (1EW, Leica) diffusely positive in Neoplastic B-cells CD10 (SP67, Bolt) Negative BCL-6 (G/191E/A8, Bolt) Positive MUM-1 (MUM1p, Dako) Positive Myc (Y69, Abcam) Positive BCL-2 Oncoprotein (124, Bolt) Positive Ki67 (MIB-1) (K2, Leica) Greater than 95% of cells in cycle Cyclin D1(SP4-R, Bolt) Negative SAPPHIRE JOSE (ATY7750-S, Leica) Negative. DIAGNOSTICS: 10/10/23 ECHO after C#2 EF 52% 11/06/22 ECHO [...] undergo investigation with ultrasound. CT CAP at [facility], report and images have been requested. ASSESSMENT/PLAN: [...] Taking oral iron bid. 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 No COLO in last 10 years. Will follow. Labs seem most consistent with anemia of chronic disease. Recheck iron studies. Prostate Cancer - DAVE at this time Constipation - good response to metamucil. Vinca decreased to 1mg with cycle #2 C-diff colitis - unable to afford the remaining 5 day course of Dificid prescribed at discharge. Hehas been taking vanco 250 qid (not sure who prescribed 250mg but will complete this on 11/30/22. Noprophylactic broad spectrum antimicrobials. OK to decrease bleach wipe down of bathroom to once a day Neuropathy - none to date. N/V - none to date. Plan: Complete 2 more days of vancomycin 250mg qid and then start vanco 125mg bid for duration of therapy. Completed treatment for pneumonia. RTC in 1 week for evaluation for C#3 of R-CHOP with modified dosing [Cytoxan and Adriamycin dose at66% with vincristine at 1 mg]. Neulasta support with Claritin daily x 7 days following administration to minimize bone pain. No further allopurinol necessary Continue ACV 400mg po bid Given c-diff, will hold on prophylactic antibiotics; vanco prophy as above. Repeat ECHO in ~ 2 mos Repeat iron studies w/ midcycle check as if he has ACD then further iron supplementation will not be helpful. Continue iron 325 qod for now until next iron studies next week. Midcycle check next week. Chip COVID vaccine. He had flu shot. I discussed all of the above with the patient and all of his questions were answered. Support and counseling as appropriate. Copy Frederick Meade MD documented in this encounter Plan of Treatment Upcoming Encounters Date Type Department Care Team (Late st Contact Info) Description 09/19/2023 8:00 AM EDT Infusion Hematology Oncology at [address] [phone] 09/21/2023 9:30 AM EDT Office Visit Hematology [place] [address] Micha Givens Jr., MD [facility] DR HEMATOLOGY [place] [address] 09/21/2023 10:30 AM EDT Clinical Support Hematology [place] [address] Danii Her, RN 09/26/2023 8:30 AM EDT Infusion Hematology Oncology at [address] [phone] 10/03/2023 9:00 AM EDT Office Visit Hematology/Oncology at [address] [phone] Adrianne Ramon MD [facility] DR HEMATOLOGY [place] [address] Yael Merlos, KARLA [facility] DR HEMATOLOGY [place] [address] 10/03/2023 9:30 AM EDT Infusion Hematology Oncology at [address] [phone] 10/10/2023 8:30 AM EDT Infusion Hematology Oncology at [address] [phone] Scheduled Orders Name Type Priority Associated Diagnoses Orde r Schedule Iron and TIBC Lab STAT 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 Expected: 12/06/2022, Expires: 11/30/2023 Ferritin Lab STAT 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 Expected: 12/06/2022, Expires: 11/30/2023 documented as of this encounter Procedures Procedure Name Priority Date/Time Associated Diagnosis Comments CBC (WITH DIFF) Routine 11/29/2022 COMPREHENSIVE METABOLIC PANEL (NON-FASTING) Routine 11/29/2022 documented in this encounter Results * Comprehensive metabolic panel (non-fasting) (11/29/2022) Creatinine 0.9 Potassium 3.6 Total Bilirubin 0.2 AST 19 ALT 22 LDH 174 Blood 11/29/2022 Historical Provider CHEMISTRY ORDERAB LES * CBC (with Diff) (11/29/2022) WBC 7.43 Hemoglobin 9.7 Hematocrit 30.0 Platelets 446 Neutr Abs (ANC) 5.3 Blood 11/29/2022 Historical Provider HEMATOLOGY ORDERA BLES documented in this encounter Visit Diagnoses Diagnosis 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 Iron deficiency anemia, unspecified iron deficiency anemia type High risk medication use Encounter for long-term (current) use of other medications Non-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
--- OUTSIDE RECORDS SUMMARY | 2023-09-17 01:35 | XMS_ITS | Encounter Summary ---
Author Organization [facility] [place] [address] Care Team Providers Care Bridge Operator Slip Name Role Phone Frederick Meade MD Primary Care Provider [phone] Encounter Details Date Type Department Care Team (Late st Contact Info) Description 11/15/2022 12:30 PM EDT Office Visit Hematology/Oncology at [address] [phone] Adrianne Ramon MD [facility] [address] [place] [address] Yael Merlos APRN [facility] [place] [address] 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 [...] the money to buy more. Never true 08/23/20 23 Within the past 12 months, t [...] Sign Reading Time Taken Comments Blood Pressure 91/50 11/15/2022 12:33 PM EDT Pulse 107 11/15/2022 12:33 PM EDT Temperature 36.5 ??C (97.7 ??F) 11/15/2022 12:33 PM E DT Respiratory Rate 16 11/15/2022 12:33 PM EDT Oxygen Saturation 100% 11/15/2022 12:33 PM EDT Inhaled Oxygen Concentration - - Weight 91.6 kg (202 lb) 11/15/2022 12:33 PM EDT Height 168.6 cm (5' 6.38) 11/15/2022 12:33 PM E DT Body Mass Index 32.23 11/15/2022 12:33 PM EDT documented in this encounter Progress Notes * Adrianne Ramon MD - 11/15/2022 12:30 PM EDT Cheo presented to clinic for his appointment today with his son and . Blood pressure was 90/50. Afebrile. Labs were not yet available. He was having rigors and shivering. Sallow complexion. noted increased number of bowel movements, although not diarrhea. Given concern for infection we sent him to the emergency room. Polly Orellana, RN, called with report. We will plan to see him next week as scheduled. He will need cultures, possibly check for C. difficile if watery diarrhea, fluid, and possibly transfusions as indicated. We await final labs from earlier today. documented in this encounter Plan of Treatment Upcoming Encounters Date Type Department Care Team (Late st Contact Info) Description 09/19/2023 8:00 AM EDT Infusion Hematology Oncology at [address] [phone] 09/21/2023 9:30 AM EDT Office Visit Hematology [place] [address] Micha Givens Jr., MD [facility] [place] [address] 09/21/2023 10:30 AM EDT Clinical Support Hematology [place] [address] Danii Her, RN 09/26/2023 8:30 AM EDT Infusion Hematology Oncology at [address] [phone] 10/03/2023 9:00 AM EDT Office Visit Hematology/Oncology at [address] [phone] Adrianne Ramon MD [facility] [place] [address] Yael Merlos, COLOR SHOP HELPER [facility] [place] [address] 10/03/2023 9:30 AM EDT Infusion Hematology Oncology at [address] [phone] 10/10/2023 8:30 AM EDT Infusion Hematology Oncology at [address] [phone] documented as of this encounter Procedures Procedure Name Priority Date/Time Associated Diagnosis Comments CBC (WITH DIFF) Routine 11/15/2022 COMPREHENSIVE METABOLIC PANEL (NON-FASTING) Routine 11/15/2022 documented in this encounter Results * Comprehensive metabolic panel (non-fasting) (11/15/2022) Glucose Lvl 241 Creatinine 1.1 Sodium 131 Potassium 3.0 Total Bilirubin 0.4 AST 7 ALT 25 Blood 11/15/2022 Historical Provider CHEMISTRY ORDERAB LES * CBC (with Diff) (11/15/2022) WBC 6.41 Hemoglobin 9.7 Hematocrit 28.6 Platelets 154 Neutr Abs (ANC) 5.32 Blood 11/15/2022 Historical Provider HEMATOLOGY ORDERA BLES documented in this encounter Visit Diagnoses Diagnosis 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 documented in this encounter Care Teams Bridge Operator Slip Relationship Specialty Start Date End Date Frederick Meade MD [address] [place] [address] [address] [place] [address] PCP - General Family Medicine 11/29/17 documented as of this encounter
--- OUTSIDE RECORDS SUMMARY | 2023-09-17 01:35 | XMS_ITS | Encounter Summary ---
Author Organization [facility] [place] [address] Care Team Providers Care Ticket Attendant Name Role Phone Frederick Meade MD Primary Care Provider [phone] Reason for Visit * Treatment/Therapy Plan Authorization (Routine) - Closed [...] 1MG, INJECTION (ONCOVIN) TC CYCLOPHOSPHAMIDE, 100MG (CYTOXAN) Adrianen Ramon MD [facility] [address] [place] [address] [facility] [address] [place] [address] Referral ID Status Reason Start Date Expiration Date Visits Re quested Visits Authorized [id number] Closed 10/11/2022 10/11/2023 1 100 Encounter Details Date Type Department Care Team (Latest Contact Info) Description 10/17/2022 11:16 AM EDT - 10/17/2022 11:59 PM EDT Hospital Encounter [place]ematology [place] [address] 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 loratadine (Claritin) 10 mg Tablet Take 1 tablet by mouth daily for 7 days. Following each chemotherapy cycle to minimize bone pain associated with Neulasta ONPRO 35 tablet 10/17/2022 10/24/2022 allopurinoL (Zyloprim) 300 mg tablet Take 1 tablet by mouth daily for 14 days. Following chemotherapy administration for the first two cycles of chemotherapy to minimize tumor lysis 14 tablet 1 10/17/2022 10/31/2022 prochlorperazine (Compazine) 10 mg tablet Take 1 tablet by mouth every 6 hours as needed for Nausea. 20 tablet 3 10/17/2022 11/29/2022 acyclovir (Zovirax) 400 mg tablet Take 1 tablet by mouth 2 times daily. 60 tablet 5 10/17/2022 03/14/2023 predniSONE (Deltasone) 50 mg tablet Take 2 tablets by mouth daily. Days 2-5 of each chemo cycle 8 tablet 5 10/17/2022 03/14/2023 ferrous sulfate 325 mg (65 mg iron) TabletIndications:ta ke two tabs at breakfast Take 325 mg by mouth every other day. Indications: take two tabs at breakfast 01/31/2023 allopurinol (ZYLOPRIM) 100 mg Tablet Take 200 mg by mouth daily. 11/08/2022 documented as of this encounter Progress Notes * Alicia Duke RN - 10/17/2022 12:11 PM EDT Patient Name: Cheo Freire Patient Age: 72 y.o. Birthdate: 1950 Admit date: 10/17/2022 Attending Physician: No att. providers found Access visit. See MAR and/or flowsheet.pt with new mediport/accessed in IR. Labs drawn, port flushed, left accessed for tomorrow infusion at [facility] documented in this encounter Plan of Treatment Upcoming Encounters Date Type Department Care Team (Late st Contact Info) Description 09/19/2023 8:00 AM EDT Infusion Hematology Oncology at [address] [phone] 09/21/2023 9:30 AM EDT Office Visit Hematology [place] [address] Micha Givens Jr., MD [facility] [address] H[place] [address] 09/21/2023 10:30 AM EDT Clinical Support [place]ematology [place] [address] Danii Her RN 09/26/2023 8:30 AM EDT Infusion Hematology Oncology at [address] [address] 10/03/2023 9:00 AM EDT Office Visit Hematology/Oncology at [address] [phone] Adrianne Ramon MD [facility] DR H[place]ATOLOG[place] [address] Yael Merlos, RETAIL PHARMACY TECHNICIAN [facility] DR [place] [address] 10/03/2023 9:30 AM EDT Infusion Hematology Oncology at [address] [phone] 10/10/2023 8:30 AM EDT Infusion Hematology Oncology at [address] [phone] Scheduled Orders Name Type Priority Associated Diagnoses Orde r Schedule Hepatitis B Surface Antigen Lab STAT 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 1 Occurrences starting 10/17/2022 until 10/17/2022 Hepatitis B Surface Antibody Lab STAT 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 1 Occurrences starting 10/17/2022 until 10/17/2022 Hepatitis B Core Antibody, Total Lab STAT 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 1 Occurrences starting 10/17/2022 until 10/17/2022 Uric acid Lab STAT 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 1 Occurrences starting 10/17/2022 until 10/17/2022 Ferritin Lab STAT Iron deficiency anemia, unspecified iron deficiency anemia type 1 Occurrences starting 10/17/2022 until 10/17/2022 Iron and TIBC Lab STAT Iron deficiency anemia, unspecified iron deficiency anemia type 1 Occurrences starting 10/17/2022 until 10/17/2022 documented as of this encounter Procedures Procedure Name Priority Date/Time Associated Diagnosis Comments SCAN, PERIPHERAL BLOOD STAT 11:45 AM EDT HEMOGRAM STAT 10/17/2022 11:45 AM EDT 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 DIFFERENTIAL, AUTOMATED STAT 10/17/2022 11:45 AM EDT 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 HC HEPATITIS C ANTIBODY STAT 10/17/2022 11:45 AM EDT 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 HC HEPATITIS B CORE AB Routine 11:45 AM EDT 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 HC HIV SCREEN, 4TH GENERATION STAT 10/17/2022 11:45 AM EDT 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 HC HEPATITIS B SURFACE AB Routine 10/17/2022 11:45 AM EDT 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 HC HEPATITIS B SURFACE AG Routine 10/17/2022 11:45 AM EDT 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 HC CBC,PLT & AUTO DIFF STAT 3 11:45 AM EDT 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 HC URIC ACID, SERUM STAT 10/17/2022 1 1:45 AM EDT 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 HC PHOSPHORUS, SERUM STAT 10/17/2022 11:45 AM EDT 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 HC MAGNESIUM, SERUM STAT 10/17/2022 1 1:45 AM EDT 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 HC LACTIC DEHYDROGENASE STAT 10/17/2022 11:45 AM EDT 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 COMPREHENSIVE METABOLIC PANEL (NON-FASTING) STAT 10/17/2022 11:45 AM EDT 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 documented in this encounter Results * Scan, Peripheral Blood (10/17/2022 11:45 AM EDT) Plat Estimate Normal [facility] RBC Morphology Abnormal [facility] Ovalocytes 1-5 /HPF [facility] Tear Drop Cells 1-5 /HPF [facility] Blood 10/17/2022 11:4 5 AM EDT 10/17/2022 12:08 PM EDT Narrative Resulting Agency Comment Spec In Lab Adrianne Ramon MD HEMATOLOGY ORDER DUONG [facility] [place] [address] * (ABNORMAL) Differential, Automated (10/17/2022 11:45 AM EDT) Neutrophils % 68.0 % [facility] Neutr Abs (ANC) 7.17(H) 1.70 - 6.10 x10(3)/mc L [facility] Lymphocytes % 13.6 % [facility] Lymphocytes Abs 1.4 0.9 - 3.2 x10(3)/[facility] Monocytes % 14.8 % [facility] Monocyte Abs 1.6(H) 0.3 - 0.9 x10(3)/[facility] Eosinophils % 2.8 % [facility] Eosinophils Abs 0.3 0.0 - 0.4 x10(3)/[facility] Basophils % 0.3 % [facility] Basophils Abs 0.0 0.0 - 0.1 x10(3)/[facility] Immature Gran % 0.50 % [facility] Comment: Immature granulocytes(IG's)percentage and absolute count will include metamyelocytes, myelocytes, and promyelocytes. Blood smears from CBCs yielding IG's will be scanned manually for concordance. If this scan disagrees with the automated IG or if promyelocytes are noted, a manual differential will be performed. Nellie Gran Abs 0.05(H) 0.00 - 0.04 x10(3)/[facility] Blood 10/17/2022 11:4 5 AM EDT 10/17/2022 12:08 PM EDT Narrative Resulting Agency Comment Spec In Lab Adrianne Ramon MD HEMATOLOGY ORDER DUONG [facility] [place] [address] * (ABNORMAL) Hemogram (10/17/2022 11:45 AM EDT) WBC 10.6(H) 4.0 - 9.5 x10(3)/[facility] RBC 3.68(L) 4.58 - 5.54 x10(6)/[facility] Hemoglobin 11.3(L) 13.7 - 16.5 g/dL [facility] Hematocrit 33.8(L) 40.5 - 48.5 % [facility] MCV 91.8 82.9 - 93.1 fL [facility] MCH 30.7 27.5 - 32.1 pg [facility] MCHC 33.4 32.0 - 35.7 g/dL [facility] Platelets 261 145 - 357 x10(3)/[facility] RDWSD 49.5(H) 36.0 - 45.0 [facility] RDWCV 14.6(H) 11.4 - 13.8 % [facility] MPV 9.4 7.6 - 12.9 [facility] nRBC % Auto 0.0 % [facility] nRBC Abs Auto 0.000 0.000 - 0.000 x10(3)/[facility] Blood 10/17/2022 11:4 5 AM EDT 10/17/2022 12:08 PM EDT Narrative Resulting Agency Comment Spec In Lab Adrianne Ramon MD HEMATOLOGY ORDER DUONG Performing Organization Address City/[facility]/ZIP Co de Phone Number [facility] [place] [address] * Hepatitis C Antibody (10/17/2022 11:45 AM EDT) Hepatitis C Ab Negative Negative [facility] Blood 10/17/2022 11:4 5 AM EDT 10/17/2022 12:08 PM EDT Narrative Resulting Agency Comment Spec In Lab Adrianne Ramon MD IMMUNOLOGY ORDER DUONG [facility] [place] [address] * HIV Screen, 4th Generation (MC/CGP/APD/NLH) (10/17/2022 11:45 AM EDT) HIV-1/2 Ab and Ag Negative Negative [facility] Comment: This 4th Generation HIV test screens for the presence of the HIV-1 p24 antigen as well as antibodies reactive against HIV-1 and HIV-2. A negative screen does not rule out an acute HIV infection. If acute HIV infection is suspected, testing should be repeated in 2 - 3 weeks or HIV nucleic acid testing performed. HIV Comment Low Risk of HIV Infection [facility] Blood 10/17/2022 11:4 5 AM EDT 10/17/2022 12:08 PM EDT Narrative Resulting Agency Comment Spec In Lab Adrianne Ramon MD IMMUNOLOGY ORDER DUONG Performing Organization Address City/[facility] Co de Phone Number [facility] [place] [address] * Hepatitis B Surface Antibody (10/17/2022 11:45 AM EDT) Pathologist [facility] HepB Surface Ab Quant <3.5 IU/L [facility] Comment: HepB Surface Ab Quant: Unvaccinated: < 8.5 IU/L Vaccinated: >= 11.5 IU/L HepB Surface Ab Negative [facility] Comment: Patient is presumed to be not vaccinated or immune to HBV infection. Expected Results: Vaccinated: Positive Unvaccinated: Negative Blood 10/17/2022 11:4 5 AM EDT 10/17/2022 12:08 PM EDT Narrative Resulting Agency Comment Spec In Lab Adrianne Ramon MD IMMUNOLOGY ORDER DUONG Performing Organization Address City/[facility]/ZIP Co de Phone Number [facility] [place] [address] * Hepatitis B Surface Antigen (10/17/2022 11:45 AM EDT) [facility] HepB Surface Ag Negative Negative [facility] Blood 10/17/2022 11:4 5 AM EDT 10/17/2022 12:08 PM EDT Narrative Resulting Agency Comment Spec In Lab Adrianne Ramon MD CHEMISTRY ORDERA BLES Performing Organization Address City/[facility]/ZIP Co de Phone Number [facility] [place] [address] * Hepatitis B Core Antibody, Total (10/17/2022 11:45 AM EDT) Hep B Core Ab Negative Negative [facility] Blood 10/17/2022 11:4 5 AM EDT 10/17/2022 12:08 PM EDT Narrative Resulting Agency Comment Spec In Lab Adrianne Ramon MD CHEMISTRY ORDERA BLES Performing Organization Address City/[facility] Co de Phone Number [facility] [place] [address] * Uric acid (10/17/2022 11:45 AM EDT) Uric Acid 5.3 3.5 - 8.5 mg/dL [facility] Blood 10/17/2022 11:4 5 AM EDT 10/17/2022 12:08 PM EDT Narrative Resulting Agency Comment Spec In Lab Adrianne Ramon MD CHEMISTRY ORDERA BLES Performing Organization Address City/[facility]/ZIP Co de Phone Number [facility] [place] [address] * Phosphorus (10/17/2022 11:45 AM EDT) Phosphorus 3.2 2.5 - 4.5 mg/dL [facility] Blood 10/17/2022 11:4 5 AM EDT 10/17/2022 12:08 PM EDT Narrative Resulting Agency Comment Spec In Lab Adrianne Ramon MD CHEMISTRY ORDERA BLES Performing Organization Address City/[facility]/ZIP Co de Phone Number [facility] [place] [address] * Magnesium (10/17/2022 11:45 AM EDT) Pathologist [facility] Magnesium 0.78 0.69 - 1.07 mmol/L [facility] Blood 10/17/2022 11:4 5 AM EDT 10/17/2022 12:08 PM EDT Narrative Resulting Agency Comment Spec In Lab Adrianne Ramon MD CHEMISTRY ORDERA BLES Performing Organization Address City/[facility]/ZIP Co de Phone Number [facility] [place] [address] * (ABNORMAL) Lactate Dehydrogenase (10/17/2022 11:45 AM EDT) Pathologist [facility] LDH 251(H) 110 - 220 unit/L [facility] Blood 10/17/2022 11:4 5 AM EDT 10/17/2022 12:08 PM EDT Narrative Resulting Agency Comment Spec In Lab Adrianne Ramon MD CHEMISTRY ORDERA BLES Performing Organization Address [facility]/ZIP Co de Phone Number [facility] [place] [address] * Comprehensive metabolic panel (non-fasting) (10/17/2022 11:45 AM EDT) Pathologist [facility] Glucose Lvl 110 65 - 199 mg/dL [facility] Comment:Diabetes: >=200 mg/d L plus symptoms BUN 17 10 - 20 mg/dL [facility] Creatinine 1.07 0.80 - 1.50 mg/dL [facility] Sodium 139 135 - 145 mmol/L [facility] Potassium 3.6 3.5 - 5.0 mmol/L [facility] Comment: Please note: ??Patients with WBC >100,000 may have falsely elevated Potassium levels. ??For accurate Potassium quantification in these patients send serum separator tube (gold top) for subsequent determinations. ??Contact the Clinical Chemistry Laboratory if there are any questions. Chloride 105 98 - 107 mmol/L [facility] CO2 23 22 - 31 mmol/L [facility] Anion Gap 11 5 - 15 mmol/L [facility] Calcium 8.9 8.5 - 10.5 mg/dL [facility] Total Protein 6.2 6.1 - 8.0 g/dL [facility] Albumin 3.6 3.2 - 5.2 g/dL [facility] AST 14 0 - 39 unit/L [facility] ALT 27 0 - 55 unit/L [facility] Alk Phos 103 40 - 130 unit/L [facility] Total Bilirubin 0.4 0.2 - 1.3 mg/dL [facility] Estimated GFR 73 >=60 mL/min/1. 73 m?? [facility] Comment: This patient's estimated GFR [...] and symptoms in addition to eGFR. Blood 10/17/2022 11:4 5 AM EDT 10/17/2022 12:08 PM EDT Narrative Resulting Agency Comment Spec In Lab Adrianne Ramon MD CHEMISTRY ORDERA BLES [facility] [place] [address] documented in this encounter Visit Diagnoses Diagnosis 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 Iron deficiency anemia, unspecified iron deficiency anemia type documented in this encounter Administered Medications Inactive Administered Medications - up to 3 most recent administrations Medication Order MAR Action Action Date Dose Rate Site heparin (pf) (porcine) (100 units/mL) flush 5 mL syringe 500 Units 500 Units, Intravenous, ONCE PRN, Starting on Sun10/17/22 at 1127, Until Sun10/18/22 at 0435, Line Care, Refer to Intravenous (IV) Procedure: Accessing Implanted Vascular Access Devices (654) procedure and/or Intravenous (IV) Job Aid: Adult Flushing & Catheter Care (0336) job aid for additional information regarding guidelines and administration., Routine Given 10/17/2022 12:10 PM EDT 500 Units sodium chloride 0.9 % (flush) (BD PosiFlush Normal Saline 0.9) flush 5-20 mL 5-20 mL, Intravenous, EVERY 1 MIN PRN, Starting on Sun10/17/22 at 1127, Until Sun10/18/22 at 0435, Line Care, Flush pertains to all indwelling lines. Flush per protocol found in the job aid using the link provided on this medication record. Refer to Intravenous (IV) Job Aid: Adult Flushing & Catheter Care (6636) job aid for additional information regarding guidelines and administration., Routine Given 10/17/2022 12:11 PM EDT 20 mLs documented in this encounter Care Teams Ticket Attendant Relationship Specialty Start Date End Date Frederick Meade MD [address] [facility] [address] [place] [address] PCP - General Family Medicine 11/29/17 documented as of this encounter
--- OUTSIDE RECORDS SUMMARY | 2023-09-17 01:35 | XMS_ITS | Encounter Summary ---
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 Procedures Echocardiogram Transthoracic Adrianne Mera MD [facility] [address] HEMATOLOGY [place] [address] [facility] [place] [address] Referral ID Status Reason Start Date Expiration Date V isits Requested Visits Authorized [id number] Closed Specialty Service Requested 10/12/2022 10/12/2023 1 1 Reason for Visit * Diagnostic Test (Routine) - Closed Specialty Diagnoses / Procedures Referred By Contac t Referred To Contact Cardiology Diagnoses 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 Procedures Echocardiogram Transthoracic Adrianne Mera MD [facility] HEMATOLOGY [place] [address] [facility] [place] [address] Referral ID Status Reason Start Date Expiration Date V isits Requested Visits Authorized [id number] Closed Specialty Service Requested 10/12/2022 10/12/2023 1 1 Encounter Details Date Type Department Care Team (Late st Contact Info) Description 11/06/2022 10:45 AM EDT - 11/06/2022 11:59 PM EDT Hospital Encounter Non-Invasive Cardiology Lab [address] [place] [address] Adrianne Mera MD [facility] HEMATOLOGY [place] [address] 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 [...] Chewable Take 81 mg by mouth daily. prochlorperazine (Compazine) 10 mg tablet Take 1 [...] ferrous sulfate 325 mg (65 mg iron) TabletIndications:take two tabs at breakfast Take 325 mg by mouth every other day. Indications: take two tabs at breakfast 01/31/2023 allopurinol (ZYLOPRIM) 100 mg Tablet Take 200 mg by mouth daily. 11/08/2022 documented as of this encounter Plan of Treatment Upcoming Encounters Date Type Department Care Team (Late st Contact Info) Description 09/19/2023 8:00 AM EDT Infusion Hematology Oncology at [address] [address] 09/21/2023 9:30 AM EDT Office Visit Hematology [place] [address] Micha Givens Jr., MD [facility] HEMATOLOGY [place] [address] 09/21/2023 10:30 AM EDT Clinical Support Hematology [place] [address] Danii Her RN 09/26/2023 8:30 AM EDT Infusion Hematology Oncology at [address] [phone] 10/03/2023 9:00 AM EDT Office Visit Hematology/Oncology at [address] [phone] Adrianne Mera MD [facility] HEMATOLOGY [place] [address] Yael Merlos APRN [facility] HEMATOLOGY [place] [address] 10/03/2023 9:30 AM EDT Infusion Hematology Oncology at [address] [phone] 10/10/2023 8:30 AM EDT Infusion Hematology Oncology at [address] [phone] documented as of this encounter Procedures Procedure Name Priority Date/Time Associated Diagnosis Comments ECHO LMTD W/O CONTRAST W LMTD SPEC DOPP COLOR DOPP Routine 11/06/2022 11:44 AM EDT 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 Echocardiogram Report Name: CHEO MORFIN Tom ? Study Date: 11/06/2022 11:11 AMBP: 154/72 mmHg ? Patient Location: 4A : 1950 ? Height: 169 cm ? Account: [id number] Age: 72 yrs ? Weight: 93 kg Gender: Male ?BSA: 2.0 m2 Ordering Physician: ADRIANNE MERA Referring Physician: ADRIANNE MERA Performed By: SHAHANA Fernando Reason For Study: Lymphoma Exam Location: [facility]. Interpretation Summary LV systolic function appears to be low-normal. LV ejection fraction appears to be 52%. Global longitudinal strain is measured at -16.6 %. (GE). There are no segmental wall motion abnormalities. Normal right ventricle. No significant valvular abnormalities. Trivial pericardial effusion. On direct comparison to prior echo dated 10/12/2022, the LV function has slightly improved. Procedure Limited - 80233. Left ventricular strain. Satisfactory quality. There is normal sinus rhythm. Left Ventricle Left ventricle is of normal size. LV systolic function appears to be low-normal. LV ejection fraction appears to be 52%. Global longitudinal strain is measured at -16.6 %. (GE). There are no segmental wall motion abnormalities. Right Ventricle The right ventricle is of normal size. Right ventricular systolic function is normal. Left Atrium The left atrium is mildly dilated. There is no evidence for a patent foramen ovale. Right Atrium A catheter is present in the right atrium. Aortic Valve The aortic valve is probably trileaflet. There is no aortic stenosis. There is no aortic regurgitation. Mitral Valve The mitral valve is structurally normal. There is no mitral stenosis. There is trace mitral regurgitation. Tricuspid Valve The tricuspid valve is structurally normal. There is no tricuspid stenosis. There is trace tricuspid regurgitation. Pulmonic Valve The pulmonic valve is not well visualized. There is no valvular pulmonic stenosis. There is trace pulmonic valve regurgitation. Venous Inferior vena cava is not well visualized. Pericardium/Pleural There is a trivial pericardial effusion. The pericardial effusion is anterior. Hemodynamics The peak right ventricular systolic pressure is 24 mmHg. Plus RA presssure. Left ventricular filling pressure is normal. ? 2D Measurements ? Volumes ?IVSd: 0.88 cm ?LAV(MOD-bp) Indexed: ?LVIDd: 5.4 cm ?27.8 ml/m2 ?LVIDs: 3.8 cm ?LVPWd: 0.88 cm ? EDV (MOD-bp) Index: 50.2 ?LV mass(C)d: 177.4 grams ?LV mass(C)dI: 87.2 grams/m2 Doppler ?3D/Strain/TomTec TR max jung: 242.5 cm/sec ??LV GLS (S3P): -16.6 % LV V1 VTI: 16.6 cm MV E max jung: 50.0 cm/sec MV A max jung: 99.1 cm/sec MV E/A: 0.50 MV dec time: 0.31 sec Lat Peak E' Jung: 8.2 cm/sec E/ e' (lat): 6.1 Med Peak E' Jung: 6.6 cm/sec E/e' (med): 7.6 E/e' Average: 6.9 I ?WMSI = 1.00 ? % Normal = 100 ?Segments ??Size X - Cannot ?? 1 - Normal ?? 2 - ? 3 - Akinetic 4 - ?1-2 ? small Interpret ? Hypokinetic ?Dyskinetic ?? 3-5 ? moderate 5 - ? 6-14 ?large Aneurysmal ?15-16 ?? diffuse Procedure Note James Valderrama MD - 11/06/2022 Echocardiogram Report Name: CHEO MORFIN Study Date: 311:11 AMBP: 154/72 mmHg Patient Location: : 1950 Height: 169 cm Account: [id number] Age: 72 yrs Weight: 93 kg Gender: Male BSA: 2.0 m2 Ordering Physician: ADRIANNE MERA Referring Physician: ADRIANNE MERA Performed By: SHAHANA Fernando Reason For Study: Lymphoma Exam Location: [facility]. Interpretation Summary LV systolic function appears to be low-normal. LV ejection fractionappears to be 52%. Global longitudinal strain is measured at -16.6 %. (GE). There areno segmental wall motion abnormalities. Normal right ventricle. No significant valvular abnormalities. Trivial pericardial effusion. On direct comparison to prior echo dated 10/12/2022, the LV function hasslightly improved. Procedure Limited - 97907. Left ventricular strain. Satisfactory quality. There isnormal sinus rhythm. Left Ventricle Left ventricle is of normal size. LV systolic function appears to below-normal. LV ejection fraction appears to be 52%. Global longitudinal strain ismeasured at -16.6 %. (GE). There are no segmental wall motion abnormalities. Right Ventricle The right ventricle is of normal size. Right ventricular systolic functionis normal. Left Atrium The left atrium is mildly dilated. There is no evidence for a patentforamen ovale. Right Atrium A catheter is present in the right atrium. Aortic Valve The aortic valve is probably trileaflet. There is no aortic stenosis.There is no aortic regurgitation. Mitral Valve The mitral valve is structurally normal. There is no mitral stenosis.There is trace mitral regurgitation. Tricuspid Valve The tricuspid valve is structurally normal. There is no tricuspidstenosis. There is trace tricuspid regurgitation. Pulmonic Valve The pulmonic valve is not well visualized. There is no valvular pulmonicstenosis. There is trace pulmonic valve regurgitation. Venous Inferior vena cava is not well visualized. Pericardium/Pleural There is a trivial pericardial effusion. The pericardial effusion isanterior. Hemodynamics The peak right ventricular systolic pressure is 24 mmHg. Plus RApresssure. Left ventricular filling pressure is normal. 2D Measurements Volumes IVSd: 0.88 cm LAV(MOD-bp)Indexed: LVIDd: 5.4 cm 27.8 ml/m2 LVIDs: 3.8 cm LVPWd: 0.88 cm EDV (MOD-bp)Index: 50.2 LV mass(C)d: 177.4 grams LV mass(C)dI: 87.2 grams/m2 Doppler 3D/Strain/TomTec TR max jung: 242.5 cm/sec LV GLS (S3P): -16.6 % LV V1 VTI: 16.6 cm MV E max jung: 50.0 cm/sec MV A max jung: 99.1 cm/sec MV E/A: 0.50 MV dec time: 0.31 sec Lat Peak E' Jung: 8.2 cm/sec E/ e' (lat): 6.1 Med Peak E' Jung: 6.6 cm/sec E/e' (med): 7.6 E/e' Average: 6.9 I WMSI = 1.00 % Normal = 100 SegmentsSize X - Cannot 1 - Normal 2 - 3 - Akinetic 4 - 1-2small Interpret Hypokinetic Dyskinetic 3-5moderate 5 - 6-14large Aneurysmal 15-16diffuse Adrianne Mera MD ECHO ORDERABLES documented in this encounter Visit Diagnoses Diagnosis 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
--- OUTSIDE RECORDS SUMMARY | 2023-09-17 01:35 | XMS_ITS | Encounter Summary ---
[place] [address] Care Team Providers Care Learning Support Aide Name Role Phone Frederick Meade MD Primary Care Provider [phone] [phone] Encounter Details Date Type Department Care Team (Late st Contact Info) Description 10/17/2022 Notes Only Hematology [place] [phone] Bailey Moran, RN Social History Tobacco Use Types Packs/Day [...] as of this encounter Progress Notes * Bailey Moran, RN - 10/17/2022 11:10 AM EDT Payton from IR called to tell me that they are sending Cheo to with a brand new port that was just placed. The port is accessed, covered with a port dressing. She asked that after we are finishedusing the port if we could please redress the site. It has been closed with Dermabond and will needa sterile gauze and a Tegaderm to cover. I relayed this message to the nurses in Access who will ensure site is appropriately dressed prior to patient going home today. documented in this encounter Plan of Treatment Upcoming Encounters Date Type Department Care Team (Late st Contact Info) Description 09/19/2023 8:00 AM EDT Infusion Hematology Oncology at [address] [phone] 09/21/2023 9:30 AM EDT Office Visit Hematology [place] [address] Micha Givens Jr., MD [facility] [address] [place] [address] 09/21/2023 10:30 AM EDT Clinical Support Hematology [place] [address] Danii Her RN 09/26/2023 8:30 AM EDT Infusion Hematology Oncology at [address] [phone] 10/03/2023 9:00 AM EDT Office Visit Hematology/Oncology at [address] [phone] Adrianne Ramon MD [facility] [place] [address] Yael Merlos APRN [facility] [place] [address] 10/03/2023 9:30 AM EDT Infusion Hematology Oncology at [address] [phone] 10/10/2023 8:30 AM EDT Infusion Hematology Oncology at [address] [phone] documented as of this encounter Visit Diagnoses Not on filedocumented in this encounter Care Teams Learning Support Aide Relationship Specialty Start Date End Date Frederick Meade MD [address] [place] [address] [address] [place] [address] PCP - General Family Medicine 11/29/17 documented as of this encounter
--- OUTSIDE RECORDS SUMMARY | 2023-09-17 01:35 | XMS_ITS | Encounter Summary ---
Author Organization [facility] [place] [address] Care Team Providers Care Packaging Inspector Name Role Phone Frederick Meade MD Primary Care Provider [phone] Encounter Details Date Type Department Care Team (Latest Contact Info) Description 11/22/2022 Travel Social History Tobacco Use Types Packs/Day [...] AM EDT Infusion Hematology Oncology at [address] [phone] 09/21/2023 9:30 AM EDT Office Visit Hematology [place] [address] Micha Givens Jr., MD [facility] [place] [address] 09/21/2023 10:30 AM EDT Clinical Support Hematology [place] [address] Danii Her RN 09/26/2023 8:30 AM EDT Infusion Hematology Oncology at [address] [phone] 10/03/2023 9:00 AM EDT Office Visit Hematology/Oncology at [address] [phone] [facility] [place] [address] [facility] [place] [address] 10/03/2023 9:30 AM EDT Infusion Hematology Oncology at [address] [phone] 10/10/2023 8:30 AM EDT Infusion Hematology Oncology at [address] [phone] documented as of this encounter Visit Diagnoses Not on filedocumented in this encounter Care Teams Packaging Inspector Relationship Specialty Start Date End Date Frederick Meade MD [address] [place] [address] PCP - General Family Medicine 11/29/17 documented as of this encounter
--- OUTSIDE RECORDS SUMMARY | 2023-09-17 01:35 | XMS_ITS | Encounter Summary ---
Author Organization [facility] [place] [address] Care Team Providers Care Tomahawk Weapon System Operator Name Role Phone Frederick Meade MD Primary Care Provider [phone] [phone] Reason for Visit * Reason Comments Chemotherapy [...] TC CYCLOPHOSPHAMIDE, 100MG (CYTOXAN) Adrianne Ramon MD [facility] [address] [place] [address] [facility] Infusion [address] [place] [address] Referral ID Status Reason Start Date Expiration Date Visits Re quested Visits Authorized [id number] Closed 10/11/2022 10/11/2023 1 100 Encounter Details Date Type Department Care Team (Late st Contact Info) Description 10/18/2022 9:00 AM EDT Infusion Hematology Oncology at [address] [phone] Diffuse large B-cell lymphoma of [...] as of this encounter Progress Notes * Olamide Haque, RN - 10/18/2022 9:00 AM EDT Cheo Freire, 72 y.o. male with diagnosis of DLBCL is here for chemotherapy infusion of R-CHOP/Onpro. PROTOCOL: na CYCLE: 1 WEEK: na DAY: 1 S: Pt. offers no complaints at this time. O: Chemotherapy orders independently verified for correct drug name, route and dosage per patient'sheight, weight and BSA by Olamide Haque, OSCAR and onsite pharmacist. Port dressing reapplied after deaccess for complete 48 hours of keeping dressing on. REACTIONS (DESCRIPTION, TIME, INTERVENTION AND EFFECTIVENESS) none A: Pt. Tolerated treatment well. Cheo Freire confirms that all questions and issues have been addressed. P: Return to clinic per protocol TIME * Olamide Haque, RN - 10/18/2022 9:00 AM EDT documented in this encounter Plan of Treatment Upcoming Encounters Date Type Department Care Team (Late st Contact Info) Description 09/19/2023 8:00 AM EDT Infusion Hematology Oncology at [address] [phone] 09/21/2023 9:30 AM EDT Office Visit Hematology [place] [address] Micha Givens Jr., MD [facility] [place] [address] 09/21/2023 10:30 AM EDT Clinical Support Hematology [place] [address] Danii Her RN 09/26/2023 8:30 AM EDT Infusion Hematology Oncology at [address] [phone] 10/03/2023 9:00 AM EDT Office Visit Hematology/Oncology at [address] [phone] Adrianne Ramon MD [facility] [place] [address] Yael Merlos, KARLA [facility] HEMATOLOGY [place] [address] 10/03/2023 9:30 AM EDT Infusion Hematology Oncology at [address] [phone] 10/10/2023 8:30 AM EDT Infusion Hematology Oncology at [address] [phone] documented as of this encounter Visit Diagnoses Diagnosis 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 documented in this encounter Administered Medications Inactive Administered Medications - up to 3 most recent administrations Medication Order MAR Action Action Date Dose Rate Site acetaminophen (Tylenol) tablet 650 mg 650 mg, Oral, ONCE, 1 dose, On Sun10/18/22 at 1000, Administer prior to riTUXimab., Routine Given 10/18/2022 9:57 AM EDT 650 mg aprepitant (CINVANTI) injection Emulsion 130 mg 130 mg, Intravenous, Administer over 2 Minutes, ONCE, 1 dose, On Sun10/18/22 at 1000, Alternative administration of IV push over 2 minutes is a recommendation from the bowling ball marker. Administer prior to chemotherapy., Routine Given 10/18/2022 9:57 AM EDT 130 mg cyclophosphamide (Cytoxan) 1,500 mg in sodium chloride 0.9% 325 mL infusion 1,500 mg, Intravenous, ONCE, 1 dose, On Sun10/18/22 at 1100, Administer over 30 Minutes, Dose Ordered = 1598 mg (750 mg/m2). Pharmacist rounded dose per procedure. Warning Vesicant/Irritant Medication New Bag 10/18/2022 2:41 PM EDT 1,500 mg 650 mL/hr diphenhydrAMINE (Benadryl) capsule 50 mg 50 mg, Oral, ONCE, 1 dose, On Sun10/18/22 at 1000, Administer prior to riTUXimab, Routine Given 10/18/2022 9:57 AM EDT 50 mg DOXOrubicin (Adriamycin) injection 106.5 mg 106.5 mg (50 mg/m2/dose ? 2.13 m2 Treatment Plan BSA from Recorded weight), Intravenous, ONCE, 1 dose, On Sun10/18/22 at 1100, Warning Vesicant/Irritant Medication Administer each syringe over a minimum of 3 minutes. Given 10/18/2022 2:22 PM EDT 106.5 mg heparin (pf) (porcine) (100 units/mL) flush 5 mL syringe 500 Units 500 Units, Intravenous, ONCE PRN, Starting on Sun10/18/22 at 0938, Until Sun10/18/22 at 1819, Line Care, Refer to Intravenous (IV) Procedure: Accessing Implanted Vascular Access Devices (654) procedure and/or Intravenous (IV) Job Aid: Adult Flushing & Catheter Care (6547) job aid for additional information regarding guidelines and administration., Routine Given 10/18/2022 3:30 PM EDT 500 Units palonosetron (Aloxi) (0.05 mg/mL) injection 0.25 mg 0.25 mg, Intravenous, ONCE, 1 dose, On Sun10/18/22 at 1000, Administer over 30 seconds., Routine Given 10/18/2022 9:57 AM EDT 0.25 mg pegfilgrastim (Neulasta Onpro) (6 mg/0.6 mL) injection kit 6 mg 6 mg, Subcutaneous, ONCE, 1 dose, On Sun10/18/22 at 1000, Allow the prefilled syringe co-packaged with the on-body injector to reach room temperature at least 30 minutes prior to administration., Routine, This agent is restricted to outpatient use. Is this drug being given as an outpatient? Yes Given 10/18/2022 4:04 PM EDT 6 mg predniSONE (Deltasone) tablet 100 mg 100 mg, Oral, ONCE, 1 dose, On Sun10/18/22 at 1000, Give first dose prior to riTUXimab, Routine Given 10/18/2022 9:56 AM EDT 100 mg riTUXimab-pvvr (Ruxience) 800 mg in sodium chloride 0.9% 400 mL infusion 800 mg, Intravenous, ONCE, 1 dose, On Sun10/18/22 at 1100, Dose Ordered = 798 mg (375 mg/m2). Pharmacist rounded dose per procedure. Administer Per Protocol, Is this product being used for treatment of malignant indication? Yes, Patient is a candidate for rapid infusion riTUXimab? No New Bag 10/18/2022 10:37 AM EDT 800 mg sodium chloride 0.9% infusion 150 mL/hr, Intravenous, CONTINUOUS, Starting on Sun10/18/22 at 1000, Until Sun10/18/22 at 1819 New Bag 10/18/2022 10:03 AM EDT 150 mL/hr 150 mL/hr vinCRIStine (Oncovin) 2 mg in sodium chloride 0.9% 27 mL infusion 2 mg, Intravenous, ONCE, 1 dose, On Sun10/18/22 at 1100, Administer over 5 Minutes, Maximum dose 2 mg Administer over 5 to 10 minutes via gravity concurrently with NS free flowing. Warning Vesicant/Irritant Medication New Bag 10/18/2022 2:29 PM EDT 2 mg 324 mL/hr documented in this encounter Care Teams Tomahawk Weapon System Operator Relationship Specialty Start Date End Date Frederick Meade MD [address] [place] [address] PCP - General Family Medicine 11/29/17 documented as of this encounter
--- OUTSIDE RECORDS SUMMARY | 2023-09-17 01:35 | XMS_ITS | Encounter Summary ---
Author Organization [facility] Address [facility] [place] [address] Care Team Providers Care Batch Operator Name Role Phone Frederick Meade MD Primary Care Provider [phone] Encounter Details Date Type Department Care Team (Late st Contact Info) Description 11/08/2022 Notes Only Hematology/Oncology at [address] [phone] Shelley Cason, [facility] OFFICE OF CARE MANAGEMENT [...] Progress Notes * Shelley Cason MSW - 11/08/2022 11:05 AM EDT Follow up with Cheo during his infusion visit today. He indicated his first round of chemo was tough on him. He indicated they are making some changes for this session. He hopes he can tolerate it better. He is managing as best he can at home. His continues as his primary support. Four of their 5 children live around them and are helpful. He did not identify any new needs today. Offered support. Reminded Cheo of UTILITY SPRAY OPERATOR availability and will continue to follow as indicated. Brief assessment Supportive Counseling documented in this encounter Plan of Treatment Upcoming Encounters Date Type Department Care Team (Late st Contact Info) Description 09/19/2023 8:00 AM EDT Infusion Hematology Oncology at [address] [phone] 09/21/2023 9:30 AM EDT Office Visit Hematology [place] [address] Micha Givens Jr., MD [facility] DR HEMATOLOGY [place] [address] 09/21/2023 10:30 AM EDT Clinical Support Hematology [place] [address] Danii Her RN 09/26/2023 8:30 AM EDT Infusion Hematology Oncology at [address] [phone] 10/03/2023 9:00 AM EDT Office Visit Hematology/Oncology at [address] [phone] Adrianne Ramon MD [facility] DR HEMATOLOGY [place] [address] Yael Merlos APRN [facility] HEMATOLOGY [place] [address] 10/03/2023 9:30 AM EDT Infusion Hematology Oncology at [address] [phone] 10/10/2023 8:30 AM EDT Infusion Hematology Oncology at [address] [phone] documented as of this encounter Visit Diagnoses Not on filedocumented in this encounter Care Teams Batch Operator Relationship Specialty Start Date End Date Frederick Meade MD [address] [place] [address] PCP - General Family Medicine 11/29/17 documented as of this encounter
--- OUTSIDE RECORDS SUMMARY | 2023-09-17 01:36 | XMS_ITS | Encounter Summary ---
Author Organization Formerly [facility] [place] [address] Care Team Providers Care Offender Job Retention Specialist Name Role Phone Frederick Meade MD Primary Care Provider [phone] Reason for Referral * Consultation (Routine) - Closed Specialty Diagnoses / Procedures Referred By Contac t Referred To Contact Hematology and Oncology Diagnoses Diffuse large B-cell lymphoma, unspecified body region Lg Ramírez MD [address] [place] [phone] [facility] Hem Onc Office [address] [place] [phone] Referral ID Status Reason Start Date Expiration Date V isits Requested Visits Authorized [id number] Closed Consult, Test & Treat 10/10/2022 10/10/2023 1 1 Encounter Details Date Type Department Care Team (Late st Contact Info) Description 10/10/2022 Transcribe Orders eDH Incoming Referrals [phone] Lg Ramírez MD [address] [place] [address] [phone] Diffuse large B-cell lymphoma, unspecified body region Social History Tobacco Use Types Packs/Day Years Used Date Smoking Tobacco: Former Cigarettes Smokeless Tobacco: Former Quit: 02/19/1986 Comments:started smoking in highschool Alcohol Use Standard Drinks/Week Comments Yes 3 (1 standard drink = 0.6 oz pur e alcohol) 3-4 beers weekly Overall Financial Resource Strain (CARDIA) Answe r [...] AM EDT Infusion Hematology Oncology at [address] [phone] 09/21/2023 9:30 AM EDT Office Visit [place] [phone] Micha Givens Jr., MD [facility] HEMATOLOGY [place] [address] 09/21/2023 10:30 AM EDT Clinical Support [place]emat[place] [address] Danii Her RN 09/26/2023 8:30 AM EDT Infusion Hematology Oncology at [address] [phone] 10/03/2023 9:00 AM EDT Office Visit Hematology/Oncology at [address] [phone] Adrianne Ramon MD [facility] DR HEMATOLOGY [place] [address] Yael Merlos APRN [facility] DR HEMATOLOGY [place] [address] 10/03/2023 9:30 AM EDT Infusion Hematology Oncology at [address] [phone] 10/10/2023 8:30 AM EDT Infusion Hematology Oncology at [address] [phone] Scheduled Referrals Name Type Priority Associated Diagnoses Orde r Schedule Referral to Hematology and Oncology Outpatient Referral Routine Diffuse large B-cell lymphoma, unspecified body region Ordered: 10/10/2022 documented as of this encounter Visit Diagnoses Diagnosis Diffuse large B-cell lymphoma, unspecified body region documented in this encounter Care Teams Offender Job Retention Specialist Relationship Specialty Start Date End Date Frederick Meade MD [address] [place] [address] PCP - General Family Medicine 11/29/17 documented as of this encounter
--- OUTSIDE RECORDS SUMMARY | 2023-09-17 01:36 | XMS_ITS | Encounter Summary ---
[place] [address] Care Team Providers Care Chief Executive Name Role Phone Frederick Meade MD Primary Care Provider [phone] Reason for Visit * Reason Comments Radiation Follow-up prostate cancer Encounter Details Date Type Department Care Team (Late st Contact Info) Description 08/21/2018 9:00 AM EDT Office Visit Radiation Oncology at [address] [phone] Anna Carr [address] [place] [address] Malignant neoplasm of prostate Social History Tobacco Use Types Packs/Day Years Used Date Smoking Tobacco: Former Cigarettes Smokeless Tobacco: Former Quit: 02/19/1986 Comments:started smoking in highschool Alcohol Use Standard Drinks/Week Comments Yes 3 (1 standard drink = 0.6 oz pur e alcohol) 3-4 beers weekly Sex and Gender Information Value Date Recorded Sex Assigned at Not on file Gender Identity Not on file Sexual Orientation Not on file documented as of this encounter Last Filed Vital Signs Vital Sign Reading Time Taken Comments Blood Pressure 137/63 08/21/2018 8:53 AM EDT Pulse 60 08/21/2018 8:53 AM EDT Temperature 36.5 ??C (97.7 ??F) 08/21/2018 8:53 AM ED T Respiratory Rate 18 08/21/2018 8:53 AM EDT Oxygen Saturation 99% 08/21/2018 8:53 AM EDT Inhaled Oxygen Concentration - - Weight 94.9 kg (209 lb 4.8 oz) 08/21/2018 8:53 A M EDT Height 170.2 cm (5' 7) 08/21/2018 8:53 AM EDT Body Mass Index 32.78 08/21/2018 8:53 AM EDT documented in this encounter Patient Instructions * Patient Instructions* Anna Carr APRN - 08/21/2018 9:00 AM EDT 07/16/2018-- WBC= 6.9, RBC= 3.71, HGB=8, HCT=28.5, VMXG=576, FERRITIN= 7 (L) Date PSA Testosterone (normal range of 240-950) 08/14/2018 < 0.1 248 11/22/2017 < 0.1 207 05/23/2017 < 0.1 196 12/07/2017 < 0.1 183 05/16/2016 < 0.1 167 05/24/2016 < 0.1 02/22/2016 < 0.1 122 11/22/2015 < 0.1 153 08/30/2015 < 0.1 171 05/11/2015 < 0.1 < 10 02/25/2015 < 0.1 Pretreatment PSA 5.4 documented in this encounter Progress Notes * Anna Carr APRN - 08/21/2018 9:00 AM EDT Images from the original note were not included. Patient ID: Cheo Freire is a 68 y.o. male with intermediate risk prostate cancer with pretreatment PSA of 5.4 Cierra 4+3=7. He was treated with external beam radiation for total dose of 79.2 Gywhich was completed on 01/26/2015. He is in clinic today for scheduled follow up. LEONEL Freire is a 64-year-old man diagnosed with intermediate risk prostate cancer. He was noted to have testicular enlargement and scrotal swelling early the spring. However, ultrasound demonstrated the swelling and testicular enlargement to have resolved. PSA was tested at that time andnoted to be slightly elevated at 3.9. Repeat PSA in June was elevated at 5.4 with only 9% free. He met with Dr. Vergara July 2014 who offered biopsy which was performed 09/01/14, demonstrating [place] 4+ 3 disease in a single core at the right apex. Forty-five percent of that core did appear to be involved. Perineural invasion was not seen. Pathology had been reviewed at [facility]. He did have a prolonged discussion with Dr. Vergara regarding the risks and benefits involved with prostatectomy, and had made a decision prior to meeting with radiation oncology to proceed with radiotherapy. IPSS: 3 with nocturia once nightly, quality of life is 1/6 (pleased). VISHNU: 19 (mild ED), however he indicates that he and his are essentially asexual at this point. 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 Contract Target Coverage (70Gy isodose line indicated): Hormone therapy: 09/29/2014 Lupron 22.5 mg 12/22/2014-- Lupron 22.5 mg IM .Prostate cancer summary/ survivor care plan reviewed with patient 06/03/2015-- copy mailed to PCP Prostate Cancer Notes Date of Presentation 06/19/2014 Age at Presentation 64 years old PSA at Presentation Presented with testicular enlargement and scrotal swelling(benign) -- PSA was 3.9 in the spring and miguel a to 5.4 in the June of 2014 Presence of Symptoms at Presentation negative Ethnicity White Date of TRUS and Biopsy 09/01/2014 Volume in cc 15 cc Cierra grade/score a+b=c 4+3=7-- intermediate risk prostate cancer [...] < 0.1 Date of PSA pita 02/25/2014 Patient Active Problem List Diagnosis Code ??? Malignant neoplasm of prostate C61 ??? Gout M10.9 Past Surgical History: Procedure Laterality Date ??? APPENDECTOMY 1957 ??? CATARACT REMOVAL Bilateral ??? TONSILLECTOMY 1956 No Known Allergies Medications 08/21/18 0944 Medication Sig Taking? ONETOUCH ULTRA BLUE TEST STRIP Strip USE TO TEST DAILY Yes ONE TOUCH DELICA 33 gauge Misc USE TO TEST DAILY Yes ONETOUCH ULTRASOFT LANCETS Misc USE TO TEST DAILY Yes ferrous sulfate 325 mg (65 mg iron) Tablet Take 650 mg by mouth daily. Indications: take two tabs at breakfast Yes allopurinol (ZYLOPRIM) 100 mg Tablet Take 100 mg by mouth 2 times daily. Yes colchicine (COLCRYS) 0.6 mg Tablet Take 0.6 mg by mouth daily. Yes hydroCHLOROthiazide (HYDRODIURIL) 25 mg Tablet Take 12.5 mg by mouth daily. Yes lisinopril (PRINIVIL;ZESTRIL) 20 mg Tablet Take 20 mg by mouth daily. Yes aspirin 81 mg Tablet, Chewable Take 81 mg by mouth daily. Yes Ibuprofen 200 mg Capsule Take by mouth 4 times daily as needed. Reported on 05/24/2016 Social History Socioeconomic History ??? Marital status: Spouse name: Not on file ??? Number of children: Not on file ??? Years of education: Not on file ??? Highest education level: Not on file Occupational History ??? 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 Financial resource strain: Not on file ??? Food insecurity: Worry: Not on file Inability: Not on file ??? Transportation needs: Medical: Not on file Non-medical: Not on file Tobacco Use ??? Smoking status: Former Smoker Packs/day: 1.00 Types: Cigarettes ??? Smokeless tobacco: Former User Quit date: 02/19/1986 ??? Tobacco comment: started smoking in highschool Substance and Sexual Activity ??? Alcohol use: Yes Alcohol/week: 1.8 oz Types: 3 Standard drinks or equivalent per week Comment: 3-4 beers weekly ??? Drug use: Not on file ??? Sexual activity: Not on file Lifestyle ??? Physical activity: Days per week: Not on file Minutes per session: Not on file ??? Stress: Not on file Relationships ??? Social connections: Talks on phone: Not on file Gets together: Not on file Attends jainism service: Not on file Active member of club or organization: Not on file Attends meetings of clubs or organizations: Not on file Relationship status: Not on file ??? Intimate partner violence: Fear of current or ex partner: Not on file Emotionally abused: Not on file Physically abused: Not on file Forced sexual activity: Not on file Other Topics Concern ??? Not on file Social History Narrative ??? Not on file Social history reviewed and updated Social Supports: Pt is and has 4 children (one son) who live in the area. Patient is not a . He is retired. Living Situation/Daily Activities/Transportation: He and his manage their daily chores and activities. He lives near this facility. Work/Finances/Insurance: Pt is retired. He does not have any issues with insurance or finances. He is part of a [employer] league and loves to bowl two to three times a week. Advance Directives: Pt indicated he has completed his advance directive and requested a copy for his record. Adjustment to Illness/Mental Health Issues: Pt reports he keeps busy with his grandchildren and traveling to their sporting events. He feels he is coping well. Interim History: Since he was last seen in clinic Mr Freire was found to have iron deficiency anemia ( June 2018). He has been started on iron therapy and is feeling much better as a result. He has not had any recurrence of a previous syncopal episode. Gout has been problematic in the past and with diet control and medications he has not had any flares in several months. Cheo reports no urinary problems--no dysuria, no hematuria and no incontinence. His IPSSS score is 3 He indicates that he is delighted with his urinary function International Prostate Symptom Score Total Score_3___ 0 1 2 3 4 5 Not at all Less than one time in five Less than half of the time About half of the time More than half of the time Almost always Incomplete emptying X frequency X intermittency X urgency X Weak stream X Flow resistance X Not at all Every eight hours Every four hours Every three hours Every 2 hours Every hour nocturia X His bowels have been moving regularly with no hematochezia, no melena, no constipation and no diarrhea. He is not sexually active Expanded Prostate Cancer Index Composite For Clinical Practice (Epic-Cp) Question 08/21/2018 ??9:52 AM EDT - Filed by Anna Carr APRN on 08/21/2018 Urinary function problem Very small problem Urinary control Total control # of pads used per day None Urinary dripping/leakage problem No problem 5. How big a problem, if any, has each of the following been for you? Pain or burning with urination No problem Weak urine stream/incomplete bladder emptying No problem Need to urinate frequently Very small problem 6. How big a problem, if any, has each of the following been for you? Increased frequency of your bowel movements No problem Overall problems with your bowel movements No problem Bloody stools No problem Ability to reach orgasm Very poor to none Quality of your erections None at all Problem with sexual function or lack of it No problem 10. How big a problem, if any, has each of the following been for you? Hot flashes or breast tenderness/enlargement No problem Feeling depressed No problem Lack of energy No problem Urinary Incontinence Symptom Score (range: 0 - 12) 0 Urinary Irritation/Obstructive Symptom Score (range: 0 - 12) 1 Bowel Symptom Score (range: 0 - 16) 0 Vitality/Hormonal Symptom Score (range: 0 - 12) 0 Overall Prostate Cancer QOL Score (range: 0 - 60) 1 Review of Systems Constitutional: Negative. Negative for activity change, chills, diaphoresis, fatigue, fever and unexpected weight change. One month ago severe fatigue due to iron deficiency anemia and now feeling much better. Scheduled to have repeat labs at the end of August HENT: Negative. Eyes: Negative. Respiratory: Negative. Negative for cough, chest tightness and shortness of breath. Cardiovascular: Negative. Negative for chest pain, palpitations and leg swelling. Gastrointestinal: Negative. Negative for abdominal distention, abdominal pain, anal bleeding, bloodin stool, constipation, diarrhea and rectal pain. Regular bowel function Repeat colonoscopy due in a couple of years Genitourinary: Negative. Negative for decreased urine volume, difficulty urinating, dysuria, flank pain, frequency, hematuria and urgency. See interim history Musculoskeletal: Negative. Negative for arthralgias and back pain. Gout is not currently symptomatic Skin: Negative. Neurological: Negative. Hematological: Negative. Psychiatric/Behavioral: Negative. Negative for sleep disturbance. KPS 100 Vitals Office Visit from 08/21/2018 [address] Oncology at [facility] Weight 94.9 kg (209 lb 4.8 oz) Height 170.2 cm (5' 7) BSA (Calculated - sq m) 2.12 sq meters BMI (Calculated) 32.78 Temp 36.5 ??C (97.7 ??F) Temp src Oral Heart Rate 60 Heart Rate Source NIBP Resp 18 BP 137/63 BP Location Right arm Patient Position Sitting SpO2 99 % Objective: Physical Exam Constitutional: He is oriented to person, place, and time. He appears well- developed and well-nourished. No distress. Appears very well HENT: Head: Normocephalic and atraumatic. Eyes: Conjunctivae and EOM are normal. Right eye exhibits no discharge. Left eye exhibits no discharge. No scleral icterus. Neck: Neck supple. Cardiovascular: Normal rate, regular rhythm and normal heart sounds. Exam reveals no gallop and no friction rub. No murmur heard. Pulmonary/Chest: Effort normal and breath sounds normal. No respiratory distress. He has no wheezes. He has no rales. He exhibits no tenderness. Abdominal: Soft. Bowel sounds are normal. He exhibits no distension. There is no tenderness. There is no rebound and no guarding. Genitourinary: Genitourinary Comments: Rectal-- due 02/2019 Musculoskeletal: Normal range of motion. He exhibits no edema or tenderness. Lymphadenopathy: Head (right side): No submental, no submandibular, no tonsillar, no preauricular, no posterior auricular and no occipital adenopathy present. Head (left side): No submental, no submandibular, no tonsillar, no preauricular, no posterior auricular and no occipital adenopathy present. He has no cervical adenopathy. He has no axillary adenopathy. Right: No inguinal and no supraclavicular adenopathy present. Left: No inguinal and no supraclavicular adenopathy present. Neurological: He is alert and oriented to person, place, and time. He exhibits normal muscle tone. Coordination normal. Skin: Skin is warm and dry. No rash noted. He is not diaphoretic. No erythema. No pallor. Psychiatric: He has a normal mood and affect. His behavior is normal. Judgment and thought content normal. Vitals reviewed. 07/16/2018-- WBC= 6.9, RBC= 3.71, HGB=8, HCT=28.5, AFYQ=822, FERRITIN= 7 (L) Date PSA Testosterone (normal range of 240-950) 08/14/2018 < 0.1 248 11/22/2017 < 0.1 207 05/23/2017 < 0.1 196 12/07/2017 < 0.1 183 05/16/2016 < 0.1 167 05/24/2016 < 0.1 02/22/2016 < 0.1 122 11/22/2015 < 0.1 153 08/30/2015 < 0.1 171 05/11/2015 < 0.1 < 10 02/25/2015 < 0.1 Pretreatment PSA 5.4 Assessment and Plan: Cheo Freire is a very pleasant 68 y.o. male with intermediate risk prostate cancer with pretreatment PSA of 5.4 Cierra 4+3=7. He was treated with external beam radiation for total dose of 79.2 Gy which was completed on 01/26/2015 and six months of ADT. He is doing well with no late effects from treatment that are concerning or bothersome. His testosterone level is normal. and his biochemical response to treatment is excellent with a PSA that remains undetectable. As part of today's visit we reviewed his labs, we reviewed treatment late effects that he would need to report including bleeding from bladder or bowels, difficulty voiding. We discussed that he has had excellent response to treatment. Plan: 1. Return to clinic in six months with PSA, testosterone and clinical evaluation 2. Patient is to call with any questions or concerns in the interim. 3. Patient has follow-up for blood draw for anemia at the end of August and followup with PCP documented in this encounter Plan of Treatment Upcoming Encounters Date Type Department Care Team (Late st Contact Info) Description 09/19/2023 8:00 AM EDT Infusion Hematology Oncology at [address] [phone] 09/21/2023 9:30 AM EDT Office Visit Hematology [place] [phone] Micha Givens Jr., MD [facility] [address] [place]AT[place]Y [place] [address] 09/21/2023 10:30 AM EDT Clinical Support Hematology [place] [phone] Danii Her, RN 09/26/2023 8:30 AM EDT Infusion Hematology Oncology at [address] [phone] 10/03/2023 9:00 AM EDT Office Visit Hematology/Oncology at [address] [phone] Adrianne Ramon MD [facility] [address] [place]OLOGY [place] [address] Yael Merlos APRN [facility] [address] HEMATOLOGY [place] [address] 10/03/2023 9:30 AM EDT Infusion Hematology Oncology at [address] [phone] 10/10/2023 8:30 AM EDT Infusion Hematology Oncology at [address] [phone] documented as of this encounter Visit Diagnoses Diagnosis Malignant neoplasm of prostate documented in this encounter Care Teams Chief Executive Relationship Specialty Start Date End Date Frederick Meade MD [address] [place] [address] PCP - General Family Medicine 11/29/17 documented as of this encounter
--- OUTSIDE RECORDS SUMMARY | 2023-09-17 01:36 | XMS_ITS | Encounter Summary ---
[place] [address] Care Team Providers Care Medical Assembler Name Role Phone Frederick Meade MD Primary Care Provider [phone] Reason for Referral * Diagnostic Test (Routine) - Closed Specialty Diagnoses / Procedures Referred By Contac t Referred To Contact Radiology Diagnoses 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 Procedures IR [facility] Adrianne Nino MD [facility] [place] [address] [facility] [place] [address] Referral ID Status Reason Start Date Expiration Date V isits Requested Visits Authorized [id number] Closed Specialty Service Requested 10/11/2022 04/13/2024 1 1 Reason for Visit * Diagnostic Test (Routine) - Closed Specialty Diagnoses / Procedures Referred By Contac t Referred To Contact Radiology Diagnoses 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 Procedures IR [facility] Adrianne Nino MD [facility] [place] [address] [facility] [place] [address] Referral ID Status Reason Start Date Expiration Date V isits Requested Visits Authorized [id number] Closed Specialty Service Requested 10/11/2022 04/13/2024 1 1 Encounter Details Date Type Department Care Team (Late st Contact Info) Description 10/17/2022 7:32 AM EDT - 10/17/2022 11:15 AM EDT Hospital Encounter Radiology at [facility] [place] [address] Adrianne Ramon MD [facility] [place] [address] 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 [...] Sign Reading Time Taken Comments Blood Pressure 138/72 10/17/2022 11:00 AM EDT Pulse 67 10/17/2022 10:38 AM EDT Temperature 36.3 ??C (97.3 ??F) 10/17/2022 10:48 AM E DT Respiratory Rate 16 10/17/2022 11:00 AM EDT Oxygen Saturation 96% 10/17/2022 11:00 AM EDT Inhaled Oxygen Concentration - - Weight - - Height - - Body Mass Index - - documented in this encounter Discharge Instructions * Discharge Instructions* Eufemia Adler RN - 10/17/2022 9:51 AM EDT Department of Vascular and Interventional Radiology Discharge Instructions for your Chest Port You have received a ???Power Port?? , which provides access for infusions and blood draws. What makes this a ???Power Port?? is the unique ability to ???power inject?? contrast (intravenous dye) through the port when getting a CT scan, which produces superior images (pictures). Patients who don???t have these special ports need to have an IV started if they need dye injected for their CT scan. Your port is printed with the letters ???CT?? which can be detected by x- ray to identify it as a ???Power Port?? . You will be provided with an ID card stating the toter and type of port you have. Please carry this with you in a safe place. Bandage: There is a sterile dressing over the port site consisting of small gauze with a clear dressing (Tegaderm or [id number] ). This dressing should be left in place for 48 hours. If the clear dressing becomes loose you should place tape over the edges to secure it in place. Note: If you have steri-strips beneath your dressing, simply allow them to fall off. Do not peel them off. There may be [place] (skin glue) also, allow this to flake off. Pain: Apply ice bag to site (s) at 30 minute intervals (30 minutes on and 30 minutes off) for 24 hours?? . May use as needed for pain and/or bruising after 24 hours. Bathing: Do not take a shower until 48 hours after your port is placed; after this time you may shower with the dressing in place, then remove it and pat your skin dry. After 48 hours, we recommend that you cover the area with THE AQUA GUARD PROVIDED for 1 week while showering, facing away from theshower stream. You may use a bandaid to cover the site after the 48 hours are up if there is any drainage. No tub baths, whirlpools or swimming for one week following port placement. Flushing the mediport: If your port has not been used, it must be flushed every 30 days. What to expect when your port is accessed: 1. You may feel tenderness the first few times it is accessed but generally this subsides over time. Ask your healthcare provider to use a local anesthetic on the site if discomfort is a problem for you. You may ask for a prescription for a topical cream (EMLA) from your clinician; you may apply athome prior to your appointments, to help numb the skin over your port. 2. The clinician should be wearing sterile gloves and a mask during the access procedure. Anyone inthe room with you should also have a mask on. 3. The skin over and 2 inches around the port should be cleaned with a disinfectant 4. Tell the clinician if you would like the skin numbed (lidocaine) before the access needle is placed. 5. Unless you are unable to take heparin (blood thinner), the port should be injected with a heparin solution before deaccess (at end of each treatment or blood draw). When to call your healthcare provider: If you notice bleeding from the puncture site in your neck, or from the port incision on your chest, you should apply firm pressure over the site for 10-15 minutes, keeping the site covered. Call if you are still bleeding after 10-15 minutes. If you develop pain, redness, drainage or swelling at or around the port site, or the puncture sitein the neck If you develop fever (elevation of more than 2 degrees or greater than 101F) and/or shaking chills When to call the Interventional Radiology Department: Please call with any questions or concerns. If it is during regular office hours, please call [phone]. If it is after regular office hours, or on weekends or holidays, please call [phone] and ask to speak to the Dry Cell Assembly Supervisor senior management consultant for Interventional Radiology. XXX You have received medication during your procedure to help lessen anxiety and keep you comfortable. These medications affect judgement and reaction time. We [...] Chewable Take 81 mg by mouth daily. ferrous sulfate 325 mg (65 mg iron) TabletIndications:take two tabs at breakfast Take 325 mg by mouth every other day. Indications: take two tabs at breakfast 01/31/2023 allopurinol (ZYLOPRIM) 100 mg Tablet Take 200 mg by mouth daily. 11/08/2022 documented as of this encounter Progress Notes * Gentry Gan RN - 10/17/2022 11:15 AM EDT Interventional and Vascular Radiology Post-Procedure Call Name: Cheo Freire Age: 72 y.o. Sex: Male Date of : 1950 (home) Telephone Information: PCP: Frederick Meade MD [phone] Date/Time of call: October 18, 2022/9:37 AM Procedure: Mediport insertion Procedural Provider: Gail Jha Provider notified via phone or email if unable to contact pt: No Are you having pain related to your procedure now?: No Are you having any swelling or bleeding from the site? No Are there any improvement in your symptoms?: No Are you having any other problems related to your procedure?: No Comments: Did you understand the discharge instructions given and do you have any questions?: Yes Comments: Do you have any comments about your Nurse or Provider or the care you received?: No Nurse Comments: * Eufemia Adler RN - 10/12/2022 1:20 PM EDT ANGIO NURSING DATABASE Name: Cheo Freire Date of : 1950 AGE: 72 y.o. Address: [address] [place] [phone] (home) Mobile: Telephone Information: Referring Provider: Adrianne Ramon REASON FOR VISIT: Planned procedure: Chest Port - Single Lumen Placement Labs to be performed day of procedure: No labs Sedation: Moderate (Conscious sedation) Prophylactic antibiotic : None Contrast: No contrast Additional medications for procedure: Lidocaine Planned access site: Right IJ Position: Supine Consent: Pending Medications to discontinue (and days held): None Case Urgency:: G2- Elective Outpatient intervention within 8-14 days Order Questions Answers Where will study be performed? [facility] Radiology [120] Prefered insertion location: No Preference Is the patient on anticoagulant / antiplatelet therapy ? No Reason for exam and clinical history: single lumen mediport No Known Allergies Pertinent PMH: Patient Active Problem List Diagnosis Code Malignant neoplasm of prostate C61 Gout M10.9 Anemia, iron deficiency D50.9 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 C83.38 Date/Procedure Meds Given/Comments 10/17/22 Mediport Placement Fentanyl 125 mcg IV, Versed 2.5 mg IV, local 0934 to procedure room 6 via stretcher. Onto table supine. All monitors, O2, safety strap in place.Meds per protocol. Laboratory Results: Lab Results Component Value Date CREATININE 1.2 10/11/2022 Lab Results Component Value Date K 4.0 10/11/2022 Lab Results Component Value Date PLATELET 290 10/11/2022 documented in this encounter H&P Notes * Abel Adams MD - 10/17/2022 8:16 AM EDT INTERVENTIONAL RADIOLOGY FOCUSED H&P: Procedure: Port placement Update to H&P: The patient's history and physical exam have been reviewed and completed. There has been NO interval change from that of the pre-procedural note done within the last 30 days. There is NO change in the procedural plan. Physical Exam: Cardiovascular: Regular, Normal Pulmonary: Breath sounds clear to auscultation Meds: Current medications reviewed. No medications held. Labs: No new relevant labs. The planned procedure (and sedation plan if appropriate) , its benefits and risks, and alternativeswere discussed with the patient. The patient consented to the procedure. PRE-SEDATION ASSESSMENT: Sedation Plan: moderate (conscious sedation) ASA: 3: Patient with severe systemic disease Mallampati: I: soft palate, fauces, tonsillar pillars and uvula can be seen Confirm NPO status: Yes History of anesthetic complications: No Current medications reviewed: Yes Allergies reviewed: Yes Higinio Ramsey MD PGY-3 Pager #[phone] Department of Radiology [facility] 10/17/2022 Source Note - James Champion DO - 10/11/2022 1:12 PM EDT Images from the original note were not included. INTERVENTIONAL RADIOLOGY FOCUSED H&P and PRE-PROCEDURE NOTE: PCP: Frederick Meade MD Referring Provider: Rebecca Ramon Planned Procedure: Planned procedure: Chest Port - Single Lumen Placement Procedure Indication: Diffuse large B-Cell lymphoma. Plan for systemic therapy. Need for durable, long-term venous access for chemotherapy. Procedure Request: Procedure request received through the Interventional Radiology eDH order queue. Presenting Diagnosis/ Complaint: Cheo Freire is a 72 y.o. male presenting to IR for chest port- single lumen placement. Past medical history is significant for Prostate cancer, obesity, HTN, and Pulmonary Embolism (not on anticoagulation), with newly diagnosed lymphoma, planning for systemic therapy. Need for durable, long-term venous access for chemotherapy. [place] [facility] Antiplatelets: Aspirin 81 mg daily. Anticoagulants: None. Recent Laboratories: Platelets: 290 on 10/11/22. INR: None. Creatinine: 1.2 on 10/11/22. Getting Laboratories Before Procedure: No. Allergies: None. Past Medical/Surgical History: Patient Active Problem List Diagnosis Code Malignant neoplasm of prostate C61 Gout M10.9 Anemia, iron deficiency D50.9 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 C83.38 Past Medical History: Diagnosis Date DM (diabetes mellitus) HTN (hypertension) Obesity Pulmonary emboli Testicular abnormality Past Surgical History: Procedure Laterality Date APPENDECTOMY 1957 CATARACT REMOVAL Bilateral TONSILLECTOMY 1956 Medications: Current Outpatient Medications on File Prior to Visit Medication Sig Dispense Refill amLODIPine (Norvasc) 5 mg tablet Take 5 mg by mouth daily. [DISCONTINUED] lisinopril-hydrochlorothiazide (PRINZIDE;ZESTORETIC) 20-12.5 mg Tablet daily. ONETOUCH ULTRA BLUE TEST STRIP Strip USE TO TEST DAILY 3 ONE TOUCH DELICA 33 gauge Misc USE TO TEST DAILY 4 ONETOUCH ULTRASOFT LANCETS Misc USE TO TEST DAILY 2 ferrous sulfate 325 mg (65 mg iron) Tablet Take 650 mg by mouth daily. Indications: take two tabs at breakfast allopurinol (ZYLOPRIM) 100 mg Tablet Take 100 mg by mouth daily. 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 Tobacco Use Smoking status: Former Packs/day: 1.00 Types: Cigarettes Quit date: 1985 Years since quittin.6 Smokeless tobacco: Former Quit date: 02/19/1986 Tobacco comments: started smoking in [employer] Vaping Use Vaping Use: Never used Substance and Sexual Activity Alcohol use: Yes Alcohol/week: 3.0 standard drinks Types: 3 Standard drinks or equivalent per week Comment: 3-4 beers weekly Drug use: Not on file Sexual activity: Not on file Other Topics Concern Not on file Social History Narrative Not on file Social Determinants of Health Financial Resource Strain: Low Risk Difficulty of Paying Living Expenses: Not hard at all Food Insecurity: No Food Insecurity Worried About Running Out of Food in the Last Year: Never true Ran Out of Food in the Last Year: Never true Transportation Needs: No Transportation Needs Lack of Transportation (Medical): No Lack of Transportation (Non-Medical): No Physical Activity: Not on file Housing Stability: Low Risk Unable to Pay for Housing in the Last Year: No Number of Places Lived in the Last Year: 1 Unstable Housing in the Last Year: No Significant Family History: Family History Problem Relation Age of Onset Type 2 Diabetes Father Cirrhosis Mother 38 Pertinent ROS: as per HPI Labs: Lab Results Component Value Date WBC 11.95 10/11/2022 ANC 9.67 10/11/2022 HCT 32.1 10/11/2022 PLATELET 290 10/11/2022 BUN 20 10/11/2022 CREATININE 1.2 10/11/2022 ALKPHOS 115 09/30/2022 AST 15 10/11/2022 ALBUMIN 3.6 09/30/2022 BILITOT 0.3 10/11/2022 ALT 49 10/11/2022 PROT 7.3 09/30/2022 K 4.0 10/11/2022 Imaging: Physical Exam: Pending (to be performed in angio the day of procedure) ASA: Pending (to be assessed in angio the day of procedure) Mallampati Class: Pending (to be assessed in angio the day of procedure) Assessment: 72 y.o. male presenting to IR for chest port - single lumen placement. Past medical history is significant for Prostate cancer, obesity, HTN, and Pulmonary Embolism (not on anticoagulation), with newly diagnosed lymphoma, planning for systemic therapy. Need for durable, long-term venous access for chemotherapy. Reviewed with Attending: Dr. Champion Plan: Planned procedure: Chest Port - Single Lumen Placement Labs to be performed day of procedure: No labs Sedation: Moderate (Conscious sedation) Prophylactic antibiotic : None Contrast: No contrast Additional medications for procedure: Lidocaine Planned access site: Right IJ Position: Supine Consent: Pending Medications to discontinue (and days held): None Case Urgency:: G2- Elective Outpatient intervention within 8-14 days 10/11/2022 documented in this encounter Plan of Treatment Upcoming Encounters Date Type Department Care Team (Late st Contact Info) Description 09/19/2023 8:00 AM EDT Infusion Hematology Oncology at [address] [phone] 09/21/2023 9:30 AM EDT Office Visit Hematology [place] [address] Micha Givens Jr., MD [facility] [place] [address] 09/21/2023 10:30 AM EDT Clinical Support Hematology [place] [address] Danii Her RN 09/26/2023 8:30 AM EDT Infusion Hematology Oncology at [address] [address] 10/03/2023 9:00 AM EDT Office Visit Hematology/Oncology at [address] [phone] Adrianne Ramon MD [facility] [place] [address] Yael Merlos, MANAGER IMMUNOLOGY [facility] [place] [address] 10/03/2023 9:30 AM EDT Infusion Hematology Oncology at [address] [phone] 10/10/2023 8:30 AM EDT Infusion Hematology Oncology at [address] [phone] documented as of this encounter Procedures Procedure Name Priority Date/Time Associated Diagnosis Comments IR MEDIPORT PLACEMENT Routine 10/17/2022 10:44 AM EDT 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 POCT GLUCOSE Routine 10/17/2022 8:29 AM EDT documented in this encounter Results * IR Mediport Placement (10/17/2022 10:44 AM EDT) Anatomical Region Laterality Modality X-Ray Angiograph y Narrative 10/17/2022 11:06 AM EDT Interventional Radiology Procedure Note Procedure: Subcutaneous venous port implant Indication: Diffuse large B-cell lymphoma, durable residential central venous access for chemotherapy Procedure summary: 1.) Venous access with ultrasound guidance 2.) Tunneled port insertion under fluoroscopic guidance Pre-procedure: Informed consent for the procedure including risks, benefits, and alternatives was obtained. Active time-out was performed prior to the procedure. The site was prepared and draped. Maximal sterile barrier technique was used throughout the procedure. Sedation: The patient received split doses of intravenous midazolam and fentanyl from the interventional radiology nurse while pulse, pressure, and oxygen saturation were continuously monitored. Technique: The right internal jugular vein was sonographically evaluated and determined to be patent. A permanent image was stored. Local anesthetic was administered. The vein was accessed via real-time ultrasound and micropuncture set with 21 gauge needle. A 0.018 wire was advanced into superior vena cava. The remainder of the procedure was performed under fluoroscopic guidance. A 4 Fr introducer sheath was placed and the wire exchanged for a 0.035 J wire. The wire was advanced into the inferior vena cava. Local anesthetic was administered on the anterior chest wall inferolateral to the puncture site. A 2 cm transverse incision was made in the right anterior chest wall, and with blunt dissection the port pocket was created. A trocar was then used to advance the catheter subcutaneously to the venous access site. A 4 Fr introducer sheath was exchanged for a peel-away sheath over the wire. The wire and inner obturator were removed and the catheter advanced into the superior vena cava under fluoroscopic guidance. The catheter was trimmed to the appropriate length and attached to the port. The port was inserted into the pocket and the sheath was removed. Catheter tip location was identified and a permanent image was stored. The port flushed and aspirated well. ??The pocket was closed using a two-layer technique with 2-0 vicryl deep interrupted and 4-0 vicryl running sutures. The skin closed was with dermabond. The port was left accessed. Medications: Lidocaine 1% <10 cc subcutaneous, lidocaine 1% with epinephrine <20 cc subcutaneous, fentanyl 125 mcg IV, midazolam 2.5 mg IV Contrast: None Fluoroscopy: 4.80 mGy Estimated blood loss: 10 mL Complications: No immediate Impression 1. Patent, compressible right internal jugular vein by ultrasound evaluation. 2. Implantation of power-injectable, Bard Vas-Cath 8 F single-lumen port in right chest with tip in the superior cavoatrial junction. The port may be used immediately. Service provider: Gail WEBB I was present during the intraservice time as documented by the interventional radiology nurse. Attending of record: Vish Villalba MD 10/17/2022 Adrianne Ramon MD IMG IR ORDERABLE S * POCT Glucose (10/17/2022 8:29 AM EDT) POC Glucose 101 65 - 199 mg/dL [facility] Comment: Supplemental ranges: <140 mg/dL before meals <180 mg/dL all other times of the day Blood 10/17/2022 8:29 AM EDT 10/17/2022 8:29 AM EDT Adrianne Ramon MD POINT [place] [address] documented in this encounter Visit Diagnoses Diagnosis 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 documented in this encounter Administered Medications Inactive Administered Medications - up to 3 most recent administrations Medication Order MAR Action Action Date Dose Rate Site fentaNYL (pf) (50 mcg/mL) multi-dose injection 25-50 mcg 25-50 mcg, Intravenous, EVERY 3 MIN PRN, Starting on Sun10/17/22 at 0817, Until Sun10/17/22 at 1113, Pain, per unit protocol, For use in [...] mcg/dose, 250 mcg/hour, Angio/IR (Intra-Procedure), Routine Given 10/17/2022 10:17 AM EDT 25 mcg Given 10/17/2022 10:10 AM EDT 25 mcg Given 10/17/2022 10:05 AM EDT 25 mcg lidocaine (Xylocaine) 1% (10 mg/mL) injection 10 mg 10 mg, Subcutaneous, ONCE, 1 dose, On Sun10/17/22 at 0845, For use in Interventional Radiology (IR) only for procedure with direct provider supervision and verbal order., Angio/IR (Intra-Procedure), Routine Given 10/17/2022 10:08 AM EDT 10 mg lidocaine-EPINEPHrine (1% - 1:100,000) injection 20 mL 20 mL, Intradermal, ONCE, 1 dose, On Sun10/17/22 at 0845, For use in Interventional Radiology (IR) only for procedure with direct provider supervision and verbal order. *This order is NOT a Venous Ablation Order / Dose., Angio/IR (Intra-Procedure), Routine Given 10/17/2022 10:13 AM EDT 20 mLs midazolam (pf) (Versed) (1 mg/mL) multi-dose injection 0.5-1 mg 0.5-1 mg, Intravenous, EVERY 3 MIN PRN, Starting on Sun10/17/22 at 0817, Until Sun10/17/22 at 1113, Sedation, For use in Interventional Radiology (IR) only for procedural sedation with direct provider supervision and verbal order. - Start dose: 1 mg (Reduce dose to 0.5 mg if history of sedation sensitivity). - Titration dose: 0.5 mg - 1 mg (based on patient response) every 3 minutes PRN to obtain RASS score of -3. Maximum dose: 1 mg/dose, 5 mg/hour., Angio/IR (Intra-Procedure), Routine Given 10/17/2022 10:17 AM EDT 0.5 mg Given 10/17/2022 10:10 AM EDT 0.5 mg Given 10/17/2022 9:49 AM EDT 0.5 mg sodium chloride 0.9 % (flush) (BD PosiFlush Normal Saline 0.9) flush 5 mL 5 mL, Intravenous, 2 TIMES DAILY, First dose on Sun10/17/22 at 0900, Until Discontinued, Angio/IR (Day of Procedure), Routine Given 10/17/2022 10:20 AM EDT 5 mLs sodium chloride 0.9% infusion 1,000 mL, at 100 mL/hr, Intravenous, CONTINUOUS, Starting on Sun10/17/22 at 0845, Until Sun10/17/22 at 1113, Angio/IR (Day of Procedure) New Bag 10/17/2022 9:45 AM EDT 1,000 mLs 100 mL/hr documented in this encounter Care Teams Medical Assembler Relationship Specialty Start Date End Date Frederick Meade MD [address] [place] [address] PCP - General Family Medicine 11/29/17 documented as of this encounter
--- OUTSIDE RECORDS SUMMARY | 2023-09-17 01:36 | XMS_ITS | Encounter Summary ---
[place] [address] Care Team Providers Care Industrial Sales Engineer Name Role Phone Bobby Headley MD Primary Care Provider [phone] Reason for Visit * Reason Comments Radiation Follow-up prostate cancer Encounter Details Date Type Department Care Team (Late st Contact Info) Description 05/31/2017 11:15 AM EDT Office Visit Radiation Oncology at [address] [phone] Anna Carr [address] RADIATION ONCOLOGY [place], [place] [id number] Malignant neoplasm of prostate Social History Tobacco [...] Sign Reading Time Taken Comments Blood Pressure 131/64 05/31/2017 11:25 AM EDT Pulse 68 05/31/2017 11:25 AM EDT Temperature 36.5 ??C (97.7 ??F) 05/31/2017 11:25 AM E DT Respiratory Rate 16 05/31/2017 11:25 AM EDT Oxygen Saturation 100% 05/31/2017 11:25 AM EDT Inhaled Oxygen Concentration - - Weight 91.7 kg (202 lb 3.2 oz) 05/31/2017 11:25 AM EDT Height 172.7 cm (5' 8) 05/31/2017 11:25 AM EDT Body Mass Index 30.74 05/31/2017 11:25 AM EDT documented in this encounter Patient Instructions * Patient Instructions* Anna Carr APRN - 05/31/2017 11:15 AM EDT Date PSA testosterone 05/23/2017 < 0.1 196 12/07/2017 < 0.1 183 05/16/2016 < 0.1 167 05/24/2016 < 0.1 02/22/2016 < 0.1 122 11/22/2015 < 0.1 153 08/30/2015 < 0.1 171 05/11/2015 < 0.1 < 10 02/25/2015 < 0.1 Pretreatment PSA 5.4 Vitals Office Visit from 05/31/2017 in Radiation Oncology at [facility] Weight 91.7 kg (202 lb 3.2 oz) Height 172.7 cm (5' 8) BSA (Calculated - sq m) 2.1 sq meters BMI (Calculated) 30.74 Temp 36.5 ??C (97.7 ??F) Temp src Oral Heart Rate 68 Heart Rate Source NIBP Resp 16 BP 131/64 BP Location Left arm Patient Position Sitting SpO2 100 % documented in this encounter Progress Notes * Anna Carr APRN - 05/31/2017 11:15 AM EDT Images from the original note were not included. Patient ID: Cheo Freire is a 67 y.o. male with intermediate risk prostate cancer with pretreatment PSA of 5.4 [place] 4+3=7. He was treated with external beam radiation for total dose of 79.2 Gywhich was completed on 01/26/2015. He is in clinic today for scheduled follow up. LEONEL Freire is a 64-year-old man recently diagnosed with intermediate risk prostate cancer. He was noted to have testicular enlargement and scrotal swelling early this spring. However, ultrasound demonstrated the swelling and testicular enlargement to have resolved. PSA was tested at that time and noted to be slightly elevated at 3.9. Repeat PSA in June was elevated at 5.4 with only 9% free. [place] with Dr. Vergara July 2014 who offered biopsy which was performed 09/01/14, demonstrating Gleason4 + 3 disease in a single core at the right apex. Forty-five percent of that core did appear to be involved. Perineural invasion was not seen. Pathology had been reviewed here at [facility]. The patient is here today to discuss radiotherapy as part of definitive management for his newly diagnosed intermediate risk prostate cancer. He did have a prolonged discussion with Dr. Vergara regarding the risks and benefits involved with prostatectomy, and appears to have made a decision prior to meeting with us to proceed with radiotherapy. IPSS: 3 with [...] the prostate Field orientation: Dynamic arc VMAT Manager City Target Coverage (70Gy isodose line indicated): Hormone [...] Biopsy 09/01/2014 Volume in cc 15 cc [place] grade/score a+b=c 4+3=7-- intermediate risk prostate cancer [...] Code ??? Malignant neoplasm of prostate C61 Past Surgical History: Procedure Laterality Date ??? APPENDECTOMY 1957 ??? CATARACT REMOVAL Bilateral ??? TONSILLECTOMY 1956 No Known Allergies Current Outpatient Prescriptions on File Prior to Visit Medication Sig Dispense Refill ??? hydroCHLOROthiazide (HYDRODIURIL) 25 mg Tablet Take 25 mg by mouth daily. ??? lisinopril (PRINIVIL;ZESTRIL) 20 mg Tablet Take 20 mg by mouth daily. ??? Ibuprofen 200 mg Capsule Take by mouth 4 times daily as needed. Reported on 05/24/2016 ??? aspirin 81 mg Tablet, Chewable Take 81 mg by mouth daily. No current facility-administered medications on file prior to visit. Social History Social History ??? Marital status: Spouse name: N/A ??? Number of children: N/A ??? 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 Smoking status: Former Smoker Packs/day: 1.00 Types: Cigarettes ??? Smokeless tobacco: Former User Quit date: 02/19/1986 Comment: started smoking in highschool ??? Alcohol use 1.8 oz/week 3 Standard drinks or equivalent per week Comment: 3-4 beers weekly ??? Drug use: Not on file ??? Sexual activity: Not on file Other Topics Concern ??? Not on file Social History Narrative Social history reviewed Social Supports: Pt is and has 4 children (one son) who live in the area. Patient is not a . He is retired. Living Situation/Daily Activities/Transportation: He and his manage their daily chores and activities. He lives near this facility. Work/Finances/Insurance: Pt is retired. He does not have any issues with insurance or finances. Advance Directives: Pt indicated he has completed his advance directive and requested a copy for his record. Adjustment to Illness/Mental Health Issues: Pt reports he keeps busy with his grandchildren and traveling to their sporting events. He will be going to [place] in September to attend a [employer] tournament. He feels he is coping well. Interim History: Since he was last seen in clinic Mr Freire has had a comprehensive cardiac evaluation due to a syncopal episode. He has had a zio patch which he is wearing until next week and his PCP is looking to have him scheduled for a stress test if approved by insurance. Gout has been problematic and he has had a recent flare. He is currently on colchicine. The pain iscurrently resolved. He has Increased water intake since his fall and assessment that he was dehydrated. Cheo reports no urinary problems--no dysuria, no hematuria and no incontinence. His IPSSS score is 7 He indicates that he is very pleased with his urinary function International Prostate Symptom Score Total Score_7___ 0 1 2 3 4 5 Not [...] no melena, no constipation and no diarrhea. Review of Systems Constitutional: Negative. Negative for activity change, chills, diaphoresis, fatigue, fever and unexpected weight change. Hopes to resume regular exercise with improvement in weather HENT: Negative. Respiratory: Negative. Cardiovascular: Negative. Negative for chest pain, palpitations and leg swelling. Gastrointestinal: Negative. Negative for abdominal distention, abdominal pain, anal bleeding, bloodin stool, constipation, diarrhea and rectal pain. Regular bowel function Genitourinary: Negative. Negative for decreased urine volume, difficulty urinating, dysuria, flank pain, frequency, hematuria and urgency. See interim history Musculoskeletal: Negative. Negative for arthralgias and back pain. Gout is not currently symptomatic Skin: Negative. Neurological: Negative. Hematological: Negative. Psychiatric/Behavioral: Negative. KPS 100 Vitals Office Visit from 05/31/2017 in Radiation Oncology at [facility] Weight 91.7 kg (202 lb 3.2 oz) Height 172.7 cm (5' 8) BSA (Calculated - sq m) 2.1 sq meters BMI (Calculated) 30.74 Temp 36.5 ??C (97.7 ??F) Temp src Oral Heart Rate 68 Heart Rate Source NIBP Resp 16 BP 131/64 BP Location Left arm Patient Position Sitting SpO2 100 % Objective: Physical Exam Constitutional: He is oriented to person, place, and time. He appears well- developed and well-nourished. No distress. HENT: Head: Normocephalic and atraumatic. Eyes: Conjunctivae and EOM are normal. Right eye exhibits no discharge. Left eye exhibits no discharge. No scleral icterus. Neck: Neck supple. Cardiovascular: Normal rate, regular rhythm and normal heart sounds. Exam reveals no gallop and no friction rub. No murmur heard. zio patch in place Pulmonary/Chest: Effort normal and breath sounds normal. No respiratory distress. He has no wheezes. He has no rales. He exhibits no tenderness. Abdominal: Soft. Bowel sounds are normal. He exhibits no distension. There is no tenderness. There is no rebound and no guarding. Musculoskeletal: Normal range of motion. He exhibits [...] Judgment and thought content normal. Vitals reviewed. 05/24/2017 labs CA=9.3, NDK=610, BUN=37, CREAT=1.45, EGFR=48.25, KK=238, K=3.4, RV=415, CO2=25.1, MG=2.0 Date PSA testosterone 05/23/2017 < 0.1 196 12/07/2017 < 0.1 183 05/16/2016 < 0.1 167 05/24/2016 < 0.1 02/22/2016 < 0.1 122 11/22/2015 < 0.1 153 08/30/2015 < 0.1 171 05/11/2015 < 0.1 < 10 02/25/2015 < 0.1 Pretreatment PSA 5.4 Assessment and Plan: Cheo Freire is a very pleasant 67 y.o. male with intermediate risk prostate cancer with pretreatment PSA of 5.4 [place] 4+3=7. He was treated with external beam radiation for total dose of 79.2 Gy which was completed on 01/26/2015 and six months of ADT. He is doing well with no late effects from treatment that are concerning or bothersome. His testosterone level is normalizing. and his biochem ical response to treatment is excellent with a PSA that remains undetectable. As part of today's visit we reviewed his labs. Plan: 1. Return to clinic in six months with PSA, testosterone and clinical evaluation 2. Patient is to call with any questions or concerns in the interim. Follow-up for a total of 35minutes, with 30 minutes of that time spent discussing his current clinical condition, reviewing his prostate Cancer Survivor Care Plan which includes review of his prostate cancer history, treatment history, health behaviors to promote wellness, ongoing surveillance, late effects of treatments and symptoms to report as well as planning further management. documented in this encounter Plan of Treatment Upcoming Encounters Date Type Department Care Team (Late st Contact Info) Description 09/19/2023 8:00 AM EDT Infusion Hematology Oncology at [address] [phone] 09/21/2023 9:30 AM EDT Office Visit [place] [address] Micha Givens Jr., MD [facility] DR HEMATOLOG[place] [address] 09/21/2023 10:30 AM EDT Clinical Support [place] [phone] Danii Her, RN 09/26/2023 8:30 AM EDT Infusion Hematology Oncology at [address] [phone] 10/03/2023 9:00 AM EDT Office Visit Hematology/Oncology at [address] [phone] Adrianne Ramon MD [facility] DR [place] [address] Yael Merlos APRN [facility] DR HEMAT[place] [address] 10/03/2023 9:30 AM EDT Infusion Hematology Oncology at [address] [phone] 10/10/2023 8:30 AM EDT Infusion Hematology Oncology at [address] [phone] documented as of this encounter Visit Diagnoses Diagnosis Malignant neoplasm of prostate documented in this encounter Care Teams Industrial Sales Engineer Relationship Specialty Start Date End Date Bobby Headley MD [address] [place] [address] PCP - General 01/29/14 11/28/17 documented as of this encounter
--- OUTSIDE RECORDS SUMMARY | 2023-09-17 01:36 | XMS_ITS | Encounter Summary ---
Author Organization [facility] [place] [address] Care Team Providers Care Diamond Mounter Name Role Phone Frederick Meade MD Primary Care Provider [phone] Encounter Details Date Type Department Care Team (Latest Contact Info) Description 10/11/2022 Travel Social History Tobacco Use Types Packs/Day [...] AM EDT Infusion Hematology Oncology at [address] [phone] 09/21/2023 9:30 AM EDT Office Visit Hematology [place] [phone] Micha Givens Jr., MD [facility] HEMAT[place] [address] 09/21/2023 10:30 AM EDT Clinical Support [place]ematology [place] [address] Danii Her RN 09/26/2023 8:30 AM EDT Infusion Hematology Oncology at [address] [phone] 10/03/2023 9:00 AM EDT Office Visit Hematology/Oncology at [address] [phone] Adrianne Ramon MD [facility] H[place]AT[place] [address] Yael Merlos APRN [facility] [place] [address] 10/03/2023 9:30 AM EDT Infusion Hematology Oncology at [address] [phone] 10/10/2023 8:30 AM EDT Infusion Hematology Oncology at [address] [phone] documented as of this encounter Visit Diagnoses Not on filedocumented in this encounter Care Teams Diamond Mounter Relationship Specialty Start Date End Date Frederick Meade MD [address] [place] [address] PCP - General Family Medicine 11/29/17 documented as of this encounter
--- OUTSIDE RECORDS SUMMARY | 2023-09-17 01:36 | XMS_ITS | Encounter Summary ---
[place] [address] Care Team Providers Care Tubing Mill Setter Name Role Phone Bobby Headley MD Primary Care Provider [phone] Reason for Visit * Reason Comments Radiation Follow-up prostate cancer Encounter Details Date Type Department Care Team (Late st Contact Info) Description 06/03/2015 3:15 PM EDT Office Visit Radiation Oncology at [address] [phone] Anna Carr [address] RADIATION ONCOLOGY [place], [place] [phone] Malignant neoplasm of prostate Social History Tobacco [...] Sign Reading Time Taken Comments Blood Pressure 139/71 06/03/2015 3:00 PM EDT Pulse 70 06/03/2015 3:00 PM EDT Temperature 36.3 ??C (97.3 ??F) 06/03/2015 3:00 PM ED T Respiratory Rate 18 06/03/2015 3:00 PM EDT Oxygen Saturation 98% 06/03/2015 3:00 PM EDT Inhaled Oxygen Concentration - - Weight 92.1 kg (203 lb) 06/03/2015 3:00 PM EDT Height - - Body Mass Index 30.87 03/04/2014 3:22 PM EST documented in this encounter Progress Notes * Anna Carr [place], RADIOLOGIC ELECTRONIC SPECIALIST - 06/02/2015 9:56 AM EDT Images from the original note were not included. Patient ID: Cheo Freire is a 65 y.o. male with intermediate risk prostate cancer with pretreatment PSA of 5.4 [place] 4+3=7. He was treated with external beam radiation for total dose of 79.2 Gywhich was completed on 01/26/2015. He is in clinic today for scheduled follow up and to review his survivor care plan. LEONEL Freire is a 64-year-old man recently diagnosed with intermediate risk prostate cancer. He was noted to have testicular enlargement and scrotal swelling early this spring. However, ultrasound demonstrated the swelling and testicular enlargement to have resolved. PSA was tested at that time and noted to be slightly elevated at 3.9. Repeat PSA in June was elevated at 5.4 with only 9% free. [place] with Dr. Vergara July 2014 who offered biopsy which was performed 09/01/14, demonstrating Gleason4 + 3 disease in a single core at the right apex. Forty-five percent of that core did appear to be involved. Perineural invasion was not seen. Pathology had been reviewed here at [facility]. The patient is here today to discuss [...] the prostate Field orientation: Dynamic arc VMAT Zipper Measurer Target Coverage (70Gy isodose line indicated): Hormone [...] Malignant neoplasm of prostate C61 Past Surgical History Procedure Laterality Date ??? Cataract removal Bilateral ??? Tonsillectomy 1956 ??? Appendectomy 1957 No Known Allergies Current Outpatient Prescriptions on File Prior to Visit Medication Sig Dispense Refill ??? polyethylene glycol (MIRALAX) 17 gram Powder in Packet Take 17 g by mouth daily. ??? lisinopril (PRINIVIL;ZESTRIL) 20 mg Tablet Take 20 mg by mouth daily. ??? Ibuprofen 200 mg Capsule Take by mouth 4 times daily as needed. ??? aspirin 81 mg Tablet, Chewable Take 81 mg by mouth daily. No current facility-administered medications on file prior to visit. History Social History ??? Marital Status: Spouse Name: N/A Number of Children: N/A ??? Years of Education: N/A Occupational History ??? 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 Smoking status: Former Smoker -- 1.00 packs/day Types: Cigarettes ??? Smokeless tobacco: Former User Quit date: 02/19/1986 Comment: started smoking in highschool ??? Alcohol Use: 1.8 oz/week 3 Standard drinks or equivalent per week Comment: 3-4 beers weekly ??? Drug Use: Not on file ??? Sexual Activity: Not on file Other Topics Concern ??? Not on file Social History Narrative Social Supports: Pt is and has 4 [...] sporting events. He will be going to [place] in September to attend a [employer] tournament. He feels he is coping well. Interim History: Mr Freire reports that he is doing well. He had an episode of faintness a few weeks ago and as a result went to the ER. He since has had a full workup including cardiac stress test, evaluation of carotids and lab work and there has been no etiology that was found for this event and he has been well since. He reports no urinary problems--no dysuria, no hematuria and no incontinence. His IPSSS score is 6.He indicates that he is very pleased with his urinary function International Prostate Symptom Score Total Score_6___ 0 1 2 3 4 5 Not [...] no melena, no constipation and no diarrhea. H/O of diet controlled DM and last A1c was 6.5. Review of Systems Constitutional: Positive for diaphoresis. Negative for fever, chills, activity change, fatigue and unexpected weight change. Non distressing hot flashes persist HENT: Negative. Respiratory: Negative. Cardiovascular: Negative. Negative for chest pain and leg swelling. Gastrointestinal: Negative. Negative for abdominal pain, diarrhea, constipation, blood in stool, abdominal distention, anal bleeding and rectal pain. Genitourinary: Negative. Negative for dysuria, urgency, frequency, hematuria, flank pain, decreasedurine volume and difficulty urinating. See interim history Musculoskeletal: Negative. Negative for back pain and arthralgias. Skin: Negative. Neurological: Negative. Hematological: Negative. Psychiatric/Behavioral: Negative. Vitals Office Visit from 06/03/2015 in [facility] Radiation Oncology Weight - Scale 92.08 kg (203 lb) Temp 36.3 ??C (97.3 ??F) Heart Rate 70 Heart Rate Source NIBP Resp 18 BP 139/71 mmHg BP Location Left arm SpO2 98 % KPS 100 Objective: Physical Exam Constitutional: He is oriented to person, place, and time. He appears well- developed and well-nourished. No distress. HENT: Head: Atraumatic. Eyes: Conjunctivae and EOM are normal. Right eye exhibits no discharge. Left eye exhibits no discharge. No scleral icterus. Neck: Neck supple. Cardiovascular: Normal rate and normal heart sounds. Exam reveals no [...] Judgment and thought content normal. Vitals reviewed. Date PSA testosterone 05/11/2015 < 0.1 < 10 02/25/2015 < 0.1 Pretreatment PSA 5.4 Assessment and Plan: Cheo Freire is a 64 y.o. male with intermediate risk prostate cancer with pretreatment PSA of 5.4 [place] 4+3=7. He was treated with external beam radiation for total dose of 79.2 Gy which was completed on 01/26/2015 and six months of ADT. He is doing well with no late effects from treatment that are concerning or bothersome. His testosterone level remains at castrate level and his biochemical response to treatment is excellent. As part of today's visit we reviewed his prostate cancer survivor care plan and reviewed his labs. Plan: 1. Return to clinic in three months with PSA, testosterone and clinical evaluation [...] AM EDT Infusion Hematology Oncology at [address] [phone] 09/21/2023 9:30 AM EDT Office Visit Hematology [place] [phone] Micha Givens Jr., MD [facility] [address] [place] [address] 09/21/2023 10:30 AM EDT Clinical Support Hematology [place] [phone] Danii Her RN 09/26/2023 8:30 AM EDT Infusion Hematology Oncology at [address] [phone] 10/03/2023 9:00 AM EDT Office Visit Hematology/Oncology at [address] [phone] Adrianne Ramon MD [facility] [address] [place] [address] Yael Merlos APRN [facility] [address] [place] [address] 10/03/2023 9:30 AM EDT Infusion Hematology Oncology at [address] [phone] 10/10/2023 8:30 AM EDT Infusion Hematology Oncology at [address] [phone] documented as of this encounter Visit Diagnoses Diagnosis Malignant neoplasm of prostate documented in this encounter Care Teams Tubing Mill Setter Relationship Specialty Start Date End Date Bobby Headley MD [address] [place] [address] PCP - General 01/29/14 11/28/17 documented as of this encounter
--- OUTSIDE RECORDS SUMMARY | 2023-09-17 01:36 | XMS_ITS | Encounter Summary ---
Author Organization [facility] [place] [address] Care Team Providers Care Information Systems Analyst Name Role Phone Bobby Headley MD Primary Care Provider [phone] Encounter Details Date Type Department Care Team (Late st Contact Info) Description 05/24/2016 11:00 AM EDT Office Visit Hematology/Oncology at [address] [phone] Annika Quezada APRN [facility] [place] [address] Prostate cancer Social History Tobacco Use Types Packs/Day Years [...] Sign Reading Time Taken Comments Blood Pressure 188/82 05/24/2016 10:52 AM EDT Pulse 56 05/24/2016 10:52 AM EDT Temperature 36.7 ??C (98.1 ??F) 05/24/2016 10:52 AM E DT Respiratory Rate 16 05/24/2016 10:52 AM EDT Oxygen Saturation 97% 05/24/2016 10:52 AM EDT Inhaled Oxygen Concentration - - Weight 95.7 kg (211 lb) 05/24/2016 10:52 AM EDT Height 168.4 cm (5' 6.3) 05/24/2016 10:52 AM ED T Body Mass Index 33.75 05/24/2016 10:52 AM EDT documented in this encounter Patient Instructions * Patient Instructions* Annika Quezada APRN - 05/24/2016 11:00 AM EDT He will return in 6months with labs prior. documented in this encounter Progress Notes * Annika Quezada APRN - 05/24/2016 11:00 AM EDT Images from the original note were not included. Patient ID: Cheo Freire is a 66 y.o. male with intermediate risk prostate cancer with pretreatment PSA of 5.4 Mcqueeney 4+3=7. He was treated with external beam radiation for total dose of 79.2 Gywhich was completed on 01/26/2015. He is in clinic today for scheduled follow up. HPI Cheo Freire is a 64-year-old man recently diagnosed with intermediate risk prostate cancer. He was noted to have testicular enlargement and scrotal swelling early this spring. However, ultrasound demonstrated the swelling and testicular enlargement to have resolved. PSA was tested at that time and noted to be slightly elevated at 3.9. Repeat PSA in June was elevated at 5.4 with only 9% free. [place] with Dr. Vergara July 2014 who offered biopsy which was performed 09/01/14, demonstrating Gleason4 + 3 disease in a single core at the right apex. Forty-five percent of that core did appear to be involved. Perineural invasion was not seen. Pathology had been reviewed here at [facility]. The patient is here today to discuss [...] the prostate Field orientation: Dynamic arc VMAT Addictions Recovery Specialist Target Coverage (70Gy isodose line indicated): Hormone [...] Biopsy 09/01/2014 Volume in cc 15 cc Mcqueeney grade/score a+b=c 4+3=7-- intermediate risk prostate cancer [...] to Visit Medication Sig Dispense Refill ??? lisinopril (PRINIVIL;ZESTRIL) 20 mg Tablet Take 20 mg by mouth daily. ??? aspirin 81 mg Tablet, Chewable Take 81 mg by mouth daily. ??? Ibuprofen 200 mg Capsule Take by mouth 4 times daily as needed. Reported on 05/24/2016 No current facility-administered medications on file prior to visit. Social History Social History ??? Marital status: Spouse name: N/A ??? Number of children: N/A ??? 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 Smoking status: Former Smoker Packs/day: 1.00 Types: Cigarettes ??? Smokeless tobacco: Former User Quit date: 02/19/1986 Comment: started smoking in [employer] ??? Alcohol use 1.8 oz/week 3 Standard [...] and traveling to their sporting events. He went to [place] last September to attend a [employer] tournament andhad a great time. He feels he is coping well. Interim History: Mr Freire reports that he is doing well. He has had no new medical issues since his last visit. He reports no urinary problems--no dysuria, no [...] and no diarrhea. Review of Systems Constitutional: Positive for diaphoresis. Negative for activity change, chills, fatigue, fever and unexpected weight change. Non distressing hot flashes persist but getting less and less but not yet resolved. No pain HENT: Negative. Respiratory: Negative. Cardiovascular: Negative. Negative for chest pain and leg swelling. Gastrointestinal: Negative. Negative for abdominal distention, abdominal pain, anal bleeding, bloodin stool, constipation, diarrhea and rectal pain. Regular bowel function Genitourinary: Negative. Negative for decreased urine volume, difficulty urinating, dysuria, flank pain, frequency, hematuria and urgency. See interim history Musculoskeletal: Negative. Negative for arthralgias and back pain. Skin: Negative. Neurological: Negative. Hematological: Negative. Psychiatric/Behavioral: Negative. KPS 100 Vitals Office Visit from 05/24/2016 in Hematology/Oncology Weight - Scale 95.7 kg (211 lb) Height 168.4 cm (5' 6.3) BSA (Calculated - sq m) 2.12 sq meters BMI (Calculated) 33.8 Temp 36.7 ??C (98.1 ??F) Temp Source Oral Heart Rate 56 Heart Rate Source Right, NIBP Resp 16 BP 188/82 BP Location Right arm Patient Position Sitting SpO2 97 % Karnofsky Score 80 Objective: Physical Exam Constitutional: He is oriented to person, place, and time. He appears well- developed and well-nourished. No distress. HENT: Head: Atraumatic. Eyes: Conjunctivae and EOM are normal. Neck: Neck supple. Cardiovascular: Normal rate and normal heart sounds. No murmur heard. Pulmonary/Chest: Effort normal and breath sounds normal.. He exhibits no tenderness. Abdominal: Soft. Bowel sounds are normal. He exhibits no distension. There is no tenderness. Genitourinary: Rectum normal and prostate normal. Rectal exam shows guaiac negative stool. Genitourinary Comments: Rectal--good sphincter tone. No masses, no tenderness, prostate effaced. Guaiac negative Musculoskeletal: Normal range of motion. He exhibits no edema or tenderness. Lymphadenopathy: He has no cervical adenopathy. He has no axillary adenopathy. Right: No inguinal and no supraclavicular adenopathy present. Left: No inguinal and no supraclavicular adenopathy present. Neurological: He is alert and oriented to person, place, and time. He exhibits normal muscle tone. Coordination normal. Skin: Skin is warm and dry. No rash noted. Psychiatric: He has a normal mood and affect. His behavior is normal. Judgment and thought content normal. Vitals reviewed. Date PSA testosterone 05/16/16 <0.1 167 02/22/16 <0.1 122 11/22/15 <0.1 153 08/30/2015 < 0.1 171 05/11/2015 < 0.1 < 10 02/25/2015 < 0.1 Pretreatment PSA 5.4 Assessment and Plan: Cheo Freire is a 66 y.o.male with intermediate risk prostate cancer with pretreatment PSA of 5.4 Mcqueeney 4+3=7. He was treated with external beam radiation for total dose of 79.2 Gy which was completed on 01/26/2015 and six months of ADT. He is doing well with no late effects from treatment that are concerning or bothersome. His testosterone level is slow to normalize but is now above castrate level and his biochemical response to treatment is excellent. As part of today's visit we reviewed his labs. heis now more than 2 yrs since the completion of treatment. Plan: 1. Return to clinic in 6 months with PSA, testosterone and clinical evaluation 2. Patient is to call with any questions or concerns in the interim. . documented in this encounter Plan of Treatment Upcoming Encounters Date Type Department Care Team (Late st Contact Info) Description 09/19/2023 8:00 AM EDT Infusion Hematology Oncology at [address] [phone] 09/21/2023 9:30 AM EDT Office Visit [place] [address] Micha Givens Jr., MD [facility] HEMATOLOGY [place] [address] 09/21/2023 10:30 AM EDT Clinical Support [place] [address] Danii Her RN 09/26/2023 8:30 AM EDT Infusion Hematology Oncology at [address] [address] 10/03/2023 9:00 AM EDT Office Visit Hematology/Oncology at [address] [phone] Adrianne Ramon MD [facility] DR HEMATOLOGY [place] [address] Yael Merlos APRN [facility] DR HEMATOLOGY [place] [address] 10/03/2023 9:30 AM EDT Infusion Hematology Oncology at [address] [phone] 10/10/2023 8:30 AM EDT Infusion Hematology Oncology at [address] [phone] documented as of this encounter Visit Diagnoses Diagnosis Prostate cancer Malignant neoplasm of prostate documented in this encounter Care Teams Information Systems Analyst Relationship Specialty Start Date End Date Bobby Headley MD [address] [place] [address] PCP - General 01/29/14 11/28/17 documented as of this encounter
--- OUTSIDE RECORDS SUMMARY | 2023-09-17 01:36 | XMS_ITS | Encounter Summary ---
Author Organization [facility] [place] [address] Care Team Providers Care Coke Inspector Name Role Phone Frederick Meade MD Primary Care Provider [phone] Reason for Referral * Diagnostic Test (Routine) - Closed Specialty Diagnoses / Procedures Referred By Contac t Referred To Contact Cardiology Diagnoses 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 Procedures Echocardiogram Transthoracic Adrianne Mera MD [facility] DR HEMATOLOGY [place] [address] [facility] [place] [address] Referral ID Status Reason Start Date Expiration Date V isits Requested Visits Authorized [id number] Closed Specialty Service Requested 10/11/2022 10/11/2023 1 1 Encounter Details Date Type Department Care Team (Late st Contact Info) Description 10/11/2022 Orders Only Hematology [place] [address] Adrianne Mera MD [facility] DR HEMATOLOGY [place] [address] 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 [...] 8:00 AM EDT Infusion Hematology Oncology at [address] [phone] 09/21/2023 9:30 AM EDT Office Visit Hematology [place] [address] Micha Givens Jr., MD [facility] DR HEMATOLOGY [place] [address] 09/21/2023 10:30 AM EDT Clinical Support Hematology [place] [address] Danii Her RN 09/26/2023 8:30 AM EDT Infusion Hematology Oncology at [address] [phone] 10/03/2023 9:00 AM EDT Office Visit Hematology/Oncology at [address] [phone] Adrianne Mera MD [facility] DR HEMATOLOGY [place] [address] Yael Merlos APRN [facility] DR HEMATOLOGY [place] [address] 10/03/2023 9:30 AM EDT Infusion Hematology Oncology at [address] [phone] 10/10/2023 8:30 AM EDT Infusion Hematology Oncology at [address] [phone] documented as of this encounter Results * ECHO COMPLETE (10/12/2022 10:00 AM EDT) Pathologist [facility] EF 49 HEARTLAB SYSTEM Anatomical Region Laterality Modality Cardiac Other 10/12/2022 9:33 AM EDT Narrative 10/12/2022 10:15 AM EDT ? Echocardiogram Report Name: CHEO MORFIN ? Study Date: 10/12/2022 09:33 AMBP: 164/86 mmHg ? Patient Location: [facility] : 1950 ? Height: 168 cm ? Account: [id number] Age: 72 yrs ? Weight: 97 kg Gender: Male ?BSA: 2.1 m2 Ordering Physician: ADRIANNE MERA Referring Physician: ADRIANNE MERA Performed By: Teresa Villafuerte RDCS Reason For Study: 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 Exam Location: [facility]. Interpretation Summary Left ventricle is of normal [...] additional findings. No comparison study is available. Procedure Complete-[id number]. Satisfactory quality. Left Ventricle Left ventricle is of normal size. Wall thickness is normal. There is no ventricular septal defect. Left ventricular systolic function is mildly reduced. The left ventricular ejection fraction is 49% by Marx's biplane. Global longitudinal strain is measured at -15.6 %. (GE). Mild global hypokinesis. Right Ventricle The right ventricle is of normal size. Right ventricular systolic function is normal. Left Atrium The left atrium is normal. There is no evidence for a patent foramen ovale. Right Atrium The right atrium is normal. Aortic Valve The aortic valve is mildly thickened. The aortic valve is not well visualized. The aortic valve is probably trileaflet. The aortic valve is mildly calcified. There is no aortic stenosis. There is no aortic regurgitation. Mitral Valve The mitral valve is structurally and functionally normal. There is mild mitral regurgitation. Tricuspid Valve The tricuspid valve is structurally normal. There is trace tricuspid regurgitation. Pulmonic Valve The pulmonic valve appears to be structurally and functionally normal. Great Arteries The aortic root is of normal size. No abnormalities are identified. The maximum diameter of the ascending aorta is 3.2 cm. Venous Inferior vena cava is normal in size. Inferior vena cava collapse greater than 50% with respiration. Pericardium/Pleural There is a trivial pericardial effusion. The pericardial effusion is adjacent to the right ventricle. Hemodynamics The right ventricular systolic pressure is normal. The peak right ventricular systolic pressure is 27.2 mmHg . The estimated right atrial pressure is 3mmHg. There is Grade I LV diastolic dysfunction (abnormal relaxation with normal left ventricular filling pressure). Ejection Fraction ?2D Measurements ? Volumes EF(MOD-bp): 48.5 % ?IVSd: 0.89 cm ?LAV(MOD- bp) Indexed: ?LVIDd: 5.1 cm ?LVIDs: 4.2 cm ?33.2 ml/m2 ?LVPWd: 0.86 cm ? EDV (MOD-bp) Index: 52.1 ? ESV (MOD-bp) Index: 26.9 ?LV mass(C)d: 159.2 grams ? SV(LVOT): 82.6 ml ?LV mass(C)dI: 77.3 grams/m2 ?SI(LVOT): 40.1 ml/m2 ?Ao root diam: 3.6 cm ?Ao root diam index: 1.8 ?asc Aorta Diam: 3.2 cm ?LVOT diam: 2.1 cm ?TAPSE_phl: 2.7 cm Doppler ?3D/Strain/TomTec TR max jung: 245.8 cm/sec ??LV GLS (S3P): -15.6 % RVSP(TR): 27.2 mmHg LV V1 VTI: 22.8 cm Ao V2 VTI: 34.4 cm Ao Max: 140.2 cm/sec Ao valve max: 7.9 mmHg Ao valve mean: 4.1 mmHg MV E max jung: 70.9 cm/sec MV A max jung: 99.5 cm/sec MV E/A: 0.71 MVA(P1/2t): 3.4 cm2 Lat Peak E' Jung: 8.6 cm/sec E/ e' (lat): 8.3 Med Peak E' Jung: 7.8 cm/sec E/e' (med): 9.1 E/e' Average: 8.7 ZULLY(I,D): 2.4 cm2 Dimensionless index Aov: 0.66 I ?WMSI = 2.00 ? % Normal = 0 ?Segments ??Size X - Cannot ?? 1 - Normal ?? 2 - ? 3 - Akinetic 4 - ?1-2 ? small Interpret ? Hypokinetic ?Dyskinetic ?? 3-5 ? moderate 5 - ? 6-14 ?large Aneurysmal ?15-16 ?? diffuse Procedure Note Jorge Salvador MD - 10/12/2022 Echocardiogram Report Name: CHEO MORFIN Study Date: 309:33 AMBP: 164/86 mmHg Patient Location: [facility] : 1950 Height: 168 cm Account: [id number] Age: 72 yrs Weight: 97 kg Gender: Male BSA: 2.1 m2 Ordering Physician: ADRIANNE MERA Referring Physician: ADRIANNE MERA Performed By: Teresa Villafuerte RDCS Reason For Study: 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multiple regions Exam Location: [facility]. Interpretation Summary Left ventricle is of normal size. Wall thickness is normal. Leftventricular systolic function is mildly reduced. The left ventricular ejectionfraction is 49% by Marx's biplane. Global longitudinal strain is measured at -15.6 %.(GE). Mild global hypokinesis. The right ventricle is of normal size. Right ventricular systolic functionis normal. No significant valvular disease noted on this study. See report for additional findings. No comparison study is available. Procedure Complete-[id number]. Satisfactory quality. Left Ventricle Left ventricle is of normal size. Wall thickness is normal. There is no ventricular septal defect. Left ventricular systolic function is mildlyreduced. The left ventricular ejection fraction is 49% by Marx's biplane.Global longitudinal strain is measured at -15.6 %. (GE). Mild globalhypokinesis. Right Ventricle The right ventricle is of normal size. Right ventricular systolic functionis normal. Left Atrium The left atrium is normal. There is no evidence for a patent foramenovale. Right Atrium The right atrium is normal. Aortic Valve The aortic valve is mildly thickened. The aortic valve is not wellvisualized. The aortic valve is probably trileaflet. The aortic valve is mildly calcified.There is no aortic stenosis. There is no aortic regurgitation. Mitral Valve The mitral valve is structurally and functionally normal. There is mildmitral regurgitation. Tricuspid Valve The tricuspid valve is structurally normal. There is trace tricuspid regurgitation. Pulmonic Valve The pulmonic valve appears to be structurally and functionally normal. Great Arteries The aortic root is of normal size. No abnormalities are identified. Themaximum diameter of the ascending aorta is 3.2 cm. Venous Inferior vena cava is normal in size. Inferior vena cava collapse greaterthan 50% with respiration. Pericardium/Pleural There is a trivial pericardial effusion. The pericardial effusion isadjacent to the right ventricle. Hemodynamics The right ventricular systolic pressure is normal. The peak rightventricular systolic pressure is 27.2 mmHg . The estimated right atrial pressure [id number]. There is Grade I LV diastolic dysfunction (abnormal relaxation with normalleft ventricular filling pressure). Ejection Fraction 2D Measurements Volumes EF(MOD-bp): 48.5 % IVSd: 0.89 cm LAV(MOD-bp)Indexed: LVIDd: 5.1 cm LVIDs: 4.2 cm 33.2 ml/m2 LVPWd: 0.86 cm EDV (MOD-bp)Index: 52.1 ESV (MOD-bp)Index: 26.9 LV mass(C)d: 159.2 grams SV(LVOT): 82.6ml LV mass(C)dI: 77.3 grams/m2 SI(LVOT): 40.1ml/m2 Ao root diam: 3.6 cm Ao root diam index: 1.8 asc Aorta Diam: 3.2 cm LVOT diam: 2.1 cm TAPSE_phl: 2.7 cm Doppler 3D/Strain/TomTec TR max jung: 245.8 cm/sec LV GLS (S3P): -15.6 % RVSP(TR): 27.2 mmHg LV V1 VTI: 22.8 cm Ao V2 VTI: 34.4 cm Ao Max: 140.2 cm/sec Ao valve max: 7.9 mmHg Ao valve mean: 4.1 mmHg MV E max jung: 70.9 cm/sec MV A max jung: 99.5 cm/sec MV E/A: 0.71 MVA(P1/2t): 3.4 cm2 Lat Peak E' Jung: 8.6 cm/sec E/ e' (lat): 8.3 Med Peak E' Jung: 7.8 cm/sec E/e' (med): 9.1 E/e' Average: 8.7 ZULLY(I,D): 2.4 cm2 Dimensionless index Aov: 0.66 I WMSI = 2.00 % Normal = 0 SegmentsSize X - Cannot 1 - Normal 2 - 3 - Akinetic 4 - 1-2small Interpret Hypokinetic Dyskinetic 3-5moderate 5 - 6-14large Aneurysmal 15-16diffuse Adrianne Mera MD ECHO ORDERABLES documented in this encounter Visit Diagnoses Diagnosis 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
--- OUTSIDE RECORDS SUMMARY | 2023-09-17 01:36 | XMS_ITS | Encounter Summary ---
[place] [address] Care Team Providers Care Sustainability Manager Name Role Phone Bobby Headley MD Primary Care Provider [phone] Encounter Details Date Type Department Care Team (Late st Contact Info) Description 11/21/2017 Orders Only Radiation Oncology at [address] [phone] Lidia Reno RN Malignant neoplasm of prostate Social History Tobacco [...] as of this encounter Progress Notes * Lidia Reno RN - 11/21/2017 8:51 AM EDT Provider ordered psa, testosterone prior to next appointment documented in this encounter Plan of Treatment Upcoming Encounters Date Type Department Care Team (Late st Contact Info) Description 09/19/2023 8:00 AM EDT Infusion Hematology Oncology at [address] [phone] 09/21/2023 9:30 AM EDT Office Visit Hematology [place] [address] Micha Givens Jr., MD [facility] DR [place] [address] 09/21/2023 10:30 AM EDT Clinical Support Hematology [place] [address] Danii Her, RN 09/26/2023 8:30 AM EDT Infusion Hematology Oncology at [address] [phone] 10/03/2023 9:00 AM EDT Office Visit Hematology/Oncology at [address] [phone] Adrianne Ramon MD [facility] DR [place] [address] Yael Merlos, KARLA [facility] [address] [place] [address] 10/03/2023 9:30 AM EDT Infusion Hematology Oncology at [address] [phone] 10/10/2023 8:30 AM EDT Infusion Hematology Oncology at [address] [phone] documented as of this encounter Visit Diagnoses Diagnosis Malignant neoplasm of prostate documented in this encounter Care Teams Sustainability Manager Relationship Specialty Start Date End Date Bobby Headley MD [address] [place] [address] PCP - General 01/29/14 11/28/17 documented as of this encounter
--- OUTSIDE RECORDS SUMMARY | 2023-09-17 01:36 | XMS_ITS | Encounter Summary ---
Author Organization [facility] [place] [address] Care Team Providers Care Canoe Builder Name Role Phone Frederick Meade MD Primary Care Provider [phone] Encounter Details Date Type Department Care Team (Late st Contact Info) Description 10/10/2022 Orders Only Hematology [place] [address] Adrianne Ramon MD [facility] DR HEMATOLOGY [place] [address] Non-Hodgkin lymphoma of lymph nodes of multiple [...] 8:00 AM EDT Infusion Hematology Oncology at [address] [phone] 09/21/2023 9:30 AM EDT Office Visit Hematology [place] [address] Micha Givens Jr., MD [facility] DR HEMATOLOGY [place] [address] 09/21/2023 10:30 AM EDT Clinical Support Hematology [place] [address] Danii Her RN 09/26/2023 8:30 AM EDT Infusion Hematology Oncology at [address] [phone] 10/03/2023 9:00 AM EDT Office Visit Hematology/Oncology at [address] [phone] Adrianne Ramon MD [facility] DR HEMATOLOGY [place] [address] Yael Merlos, KARLA [facility] DR HEMATOLOGY [place] [address] 10/03/2023 9:30 AM EDT Infusion Hematology Oncology at [address] [phone] 10/10/2023 8:30 AM EDT Infusion Hematology Oncology at [address] [phone] documented as of this encounter Visit Diagnoses Diagnosis Non-Hodgkin lymphoma of lymph nodes of multiple regions, unspecified non-Hodgkin lymphoma type documented in this encounter Care Teams Canoe Builder Relationship Specialty Start Date End Date Frederick Meade MD [address] [place] [address] PCP - General Family Medicine 11/29/17 documented as of this encounter
--- OUTSIDE RECORDS SUMMARY | 2023-09-17 01:36 | XMS_ITS | Encounter Summary ---
Author Organization [facility] [place] [address] Care Team Providers Care Tunnel Elastic Operator Lockstitch Name Role Phone Frederick Meade MD Primary Care Provider [phone] Reason for Visit * Diagnostic Test (Routine) - Closed Specialty Diagnoses / Procedures Referred By Contac t Referred To Contact Radiology Diagnoses Non-Hodgkin lymphoma of lymph nodes of multiple regions, unspecified non-Hodgkin lymphoma type 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 Procedures NM PET CT Standard Plus Extremities and Head Adrianne Ramon MD [facility] [address] [place] [address] [place] [address] Referral ID Status Reason Start Date Expiration Date V isits Requested Visits Authorized [id number] Closed Specialty Service Requested 10/10/2022 04/12/2024 1 2 Encounter Details Date Type Department Care Team (Late st Contact Info) Description 10/12/2022 10:26 AM EDT - 10/12/2022 11:59 PM EDT Hospital Encounter [place] [address] Adrianne Ramon MD [facility] [place] [address] Discharge Disposition: Home Social History [...] Chewable Take 81 mg by mouth daily. predniSONE (Deltasone) 20 mg tablet Take 5 tablets by mouth daily for 2 days. 10 tablet 10/14/2022 10/16/2022 ferrous sulfate 325 mg (65 mg iron) [...] 8:00 AM EDT Infusion Hematology Oncology at [address] [address] 09/21/2023 9:30 AM EDT Office Visit Hematology [place] [address] Micha Givens Jr., MD [facility] [place] [address] 09/21/2023 10:30 AM EDT Clinical Support Hematology [place] [address] Danii Her RN 09/26/2023 8:30 AM EDT Infusion Hematology Oncology at [address] [address] 10/03/2023 9:00 AM EDT Office Visit Hematology/Oncology at [address] [phone] Adrianne Ramon MD [facility] [place] [address] Yael Merlos, SCHOOL BUS DRIVER/TEACHER ASSISTANT [facility] [place] [address] 10/03/2023 9:30 AM EDT Infusion Hematology Oncology at [address] [address] 10/10/2023 8:30 AM EDT Infusion Hematology Oncology at [address] [phone] documented as of this encounter Procedures Procedure Name Priority Date/Time Associated Diagnosis Comments NM PET CT STANDARD PLUS EXTREMITIES AND HEAD STAT 10/12/2022 12:53 PM EDT Non-Hodgkin lymphoma of lymph nodes of multiple regions, unspecified non-Hodgkin lymphoma type 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 POCT GLUCOSE Routine 10/12/2022 11:00 AM EDT documented in this encounter Results * POCT Glucose (10/12/2022 11:00 AM EDT) POC Glucose 113 65 - 199 mg/dL [facility] Comment: Supplemental ranges: <140 mg/dL before meals <180 mg/dL all other times of the day Blood 10/12/2022 11:0 0 AM EDT 10/12/2022 11:00 AM EDT Adrianne Ramon MD POINT OF CARE TE ST ORDERABLES [facility] [place] [address] documented in this encounter Visit Diagnoses Not on filedocumented in this encounter Care Teams Tunnel Elastic Operator Lockstitch Relationship Specialty Start Date End Date Frederick Meade MD [address] [place] [address] PCP - General Family Medicine 11/29/17 documented as of this encounter
--- OUTSIDE RECORDS SUMMARY | 2023-09-17 01:36 | XMS_ITS | Encounter Summary ---
[place] [address] Care Team Providers Care Automotive Mechanical Engineer Name Role Phone Frederick Meade MD Primary Care Provider [phone] Reason for Referral * Diagnostic Test (Routine) - Closed Specialty Diagnoses / Procedures Referred By Contac t Referred To Contact Cardiology Diagnoses 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 Procedures Echocardiogram Transthoracic Adrinane Mera MD [facility] DR HEMATOLOGY [place] [address] [facility] [place] [address] Referral ID Status Reason Start Date Expiration Date V isits Requested Visits Authorized [id number] Closed Specialty Service Requested 10/11/2022 10/11/2023 1 1 Reason for Visit * Diagnostic Test (Routine) - Closed Specialty Diagnoses / Procedures Referred By Contac t Referred To Contact Cardiology Diagnoses 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 Procedures Echocardiogram Transthoracic Adrianne Mera MD [facility] DR HEMATOLOGY [place] [address] [facility] [place] [address] Referral ID Status Reason Start Date Expiration Date V isits Requested Visits Authorized [id number] Closed Specialty Service Requested 10/11/2022 10/11/2023 1 1 Encounter Details Date Type Department Care Team (Late st Contact Info) Description 10/12/2022 9:05 AM EDT - 10/12/2022 10:25 AM EDT Hospital Encounter Non-Invasive Cardiology Lab [address] [place] [address] Adrianne Mera MD [facility] DR HEMATOLOGY [place] [address] 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 [...] AM EDT Infusion Hematology Oncology at [address] [address] 09/21/2023 9:30 AM EDT Office Visit Hematology [place] [address] Micha Givens Jr., MD [facility] DR HEMATOLOGY [place] [address] 09/21/2023 10:30 AM EDT Clinical Support Hematology [place] [address] Danii Her RN 09/26/2023 8:30 AM EDT Infusion Hematology Oncology at [address] [phone] 10/03/2023 9:00 AM EDT Office Visit Hematology/Oncology at [address] [address] Adrianne Mera MD [facility] HEMATOLOGY [place] [address] Yael Merlos APRN [facility] H[place]ATOLOGY [place] [address] 10/03/2023 9:30 AM EDT Infusion Hematology Oncology at [address] [address] 10/10/2023 8:30 AM EDT Infusion Hematology Oncology at [address] [phone] documented as of this encounter Procedures Procedure Name Priority Date/Time Associated Diagnosis Comments ECHO COMPLETE Routine 10/12/2022 10:00 AM EDT 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 documented in this encounter Results * ECHO COMPLETE (10/12/2022 10:00 AM EDT) EF 49 HEART[facility] SYSTEM Anatomical Region Laterality Modality Cardiac Other 10/12/2022 9:33 AM EDT Narrative 10/12/2022 10:15 AM EDT ? Echocardiogram Report Name: CHEO MORFIN ? Study Date: 10/12/2022 09:33 AMBP: 164/86 mmHg ? Patient Location: [facility] : 1950 ? Height: 168 cm ? Account: [id number] Age: 72 yrs ? Weight: 97 kg Gender: Male ?BSA: 2.1 m2 Ordering Physician: ADRIANNE MERA Referring Physician: ADRIANNE MERA Performed By: Teresa Villafuerte RDCS Reason For Study: 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 Exam Location: [facility]. Interpretation Summary Left ventricle [...] findings. No comparison study is available. Procedure Complete-30342. Satisfactory quality. Left Ventricle Left ventricle is [...] Date: 309:33 AMBP: 164/86 mmHg Patient Location: [facility] : 1950 Height: 168 cm Account: [id number] Age: 72 yrs Weight: 97 kg Gender: Male BSA: 2.1 m2 Ordering Physician: ADRIANNE MERA Referring Physician: ADRIANNE MERA Performed By: Teresa Villafuerte RDCS Reason For Study: 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multiple regions Exam Location: [facility]. Interpretation Summary Left ventricle [...] findings. No comparison study is available. Procedure Complete-[id number]. Satisfactory quality. Left Ventricle Left ventricle is [...] mmHg . The estimated right atrial pressure [id number]. There is Grade I LV diastolic dysfunction [...] regions documented in this encounter Care Teams Automotive Mechanical Engineer Relationship Specialty Start Date End Date Frederick Meade MD [address] [place] [address] PCP - General Family Medicine 11/29/17 documented as of this encounter
--- OUTSIDE RECORDS SUMMARY | 2023-09-17 01:36 | XMS_ITS | Encounter Summary ---
Author Organization [facility] [place] [address] Care Team Providers Care Clinical Sciences Professor Name Role Phone Bobby Headley MD Primary Care Provider [phone] Encounter Details Date Type Department Care Team (Late st Contact Info) Description 12/01/2015 10:15 AM EDT Office Visit Hematology/Oncology at [address] [phone] Annika Quezada APRN [facility] [place] [address] Prostate cancer Social History Tobacco Use Types [...] Sign Reading Time Taken Comments Blood Pressure 153/68 12/01/2015 10:24 AM EDT Pulse 62 12/01/2015 10:24 AM EDT Temperature 36.4 ??C (97.5 ??F) 12/01/2015 1 0:24 AM EDT Respiratory Rate 18 12/01/2015 10:2 4 AM EDT Oxygen Saturation 100% 12/01/2015 10: 24 AM EDT Inhaled Oxygen Concentration - - Weight 93.4 kg (205 lb 12.8 oz) 016 10:24 AM EDT Height - - Body Mass Index 32.92 09/09/2015 10:29 AM EDT documented in this encounter Patient Instructions * Patient Instructions* Annika Quezada APRN - 12/01/2015 10:15 AM EDT He will return in 3 months with psa and testosterone prior. Todays results show continued excellent response but testosterone remains Low. Date PSA testosterone 11/22/15 <0.1 153 08/30/2015 < 0.1 171 05/11/2015 < 0.1 < 10 02/25/2015 < 0.1 Pretreatment PSA 5.4 documented in this encounter Progress Notes * Annika Quezada APRN - 12/01/2015 10:15 AM EDT Images from the original note were not included. Patient ID: Cheo Freire is a 65 y.o. male with intermediate risk prostate cancer with pretreatment PSA of 5.4 Llano 4+3=7. He was treated with external beam [...] elevated at 5.4 with only 9% free. [place] with Dr. Vergara July 2014 who offered biopsy which was performed 09/01/14, demonstrating Gleason4 + 3 disease in a single core at the right apex. Forty-five percent of that core did appear to be involved. Perineural invasion was not seen. Pathology had been reviewed here at [facility]. 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 Smoking [...] to their sporting events. He went to [place] in September to attend a [employer] tournament and had a great time. He feels he is coping well. Interim History: Mr Freire reports that he is doing well. He has had no repeat episodes of fainting. He reports no urinary problems--no dysuria, no [...] flashes persist but getting less and less No pain HENT: Negative. Respiratory: Negative. Cardiovascular: [...] Negative. Hematological: Negative. Psychiatric/Behavioral: Negative. KPS 100 Temp: [36.4 ??C (97.5 ??F)] Heart Rate: [62] Resp: [18] BP: (153)/(68) SpO2: [100 %] Heart Rate from SPO2: -- Objective: Physical Exam Constitutional: He is oriented [...] content normal. Vitals reviewed. Date PSA testosterone 11/22/15 <0.1 153 08/30/2015 < 0.1 171 05/11/2015 < 0.1 < 10 02/25/2015 < 0.1 Pretreatment PSA 5.4 Assessment and Plan: Cheo Freire is a 65 y.o.male with intermediate risk prostate cancer with pretreatment PSA of 5.4 Llano 4+3=7. He was treated with external beam radiation for total dose of 79.2 Gy which was completed on 01/26/2015 and six months of ADT. He is doing well with no late effects from treatment that are concerning or bothersome. His testosterone level is normalizing and is now above castrate level and his [...] AM EDT Infusion Hematology Oncology at [address] [phone] 09/21/2023 9:30 AM EDT Office Visit [place]ology [place] [address] Micha Givens Jr., MD [facility] DR [place] [address] 09/21/2023 10:30 AM EDT Clinical Support [place]ematology [place] [address] Danii Her RN 09/26/2023 8:30 AM EDT Infusion Hematology Oncology at [address] [phone] 10/03/2023 9:00 AM EDT Office Visit Hematology/Oncology at [address] [phone] Adrianne Ramon MD [facility] [place] [address] Yael Merlos APRN [facility] [place] [address] 10/03/2023 9:30 AM EDT Infusion Hematology Oncology at [address] [phone] 10/10/2023 8:30 AM EDT Infusion Hematology Oncology at [address] [phone] documented as of this encounter Visit Diagnoses Diagnosis Prostate cancer Malignant neoplasm of prostate documented in this encounter Care Teams Clinical Sciences Professor Relationship Specialty Start Date End Date Bobby Headley MD [address] [place] [address] PCP - General 01/29/14 11/28/17 documented as of this encounter
--- OUTSIDE RECORDS SUMMARY | 2023-09-17 01:36 | XMS_ITS | Encounter Summary ---
Author Organization [facility] [place] [address] Care Team Providers Care Jalousies Installer Name Role Phone Frederick Meade MD Primary Care Provider [phone] Reason for Referral * Diagnostic Test (Routine) - Closed Specialty Diagnoses / Procedures Referred By Contac t Referred To Contact Radiology Diagnoses Non-Hodgkin lymphoma of lymph nodes of multiple regions, unspecified non-Hodgkin lymphoma type 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 Procedures NM PET CT Standard Plus Extremities and Head Adrianne Ramon MD [facility] [place] [address] [place] [address] Referral ID Status Reason Start Date Expiration Date V isits Requested Visits Authorized [id number] Closed Specialty Service Requested 10/10/2022 04/12/2024 1 2 Reason for Visit * Diagnostic Test (Routine) - Closed Specialty Diagnoses / Procedures Referred By Contac t Referred To Contact Radiology Diagnoses Non-Hodgkin lymphoma of lymph nodes of multiple regions, unspecified non-Hodgkin lymphoma type 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 Procedures NM PET CT Standard Plus Extremities and Head Adrianne Ramon MD [facility] [place] [address] [place] [address] Referral ID Status Reason Start Date Expiration Date V isits Requested Visits Authorized [id number] Closed Specialty Service Requested 10/10/2022 04/12/2024 1 2 Encounter Details Date Type Department Care Team (Late st Contact Info) Description 10/12/2022 10:26 AM EDT - 10/12/2022 11:59 PM EDT Hospital En[place] [phone] Adrianne Ramon MD [facility] DR [place] [address] Non-Hodgkin lymphoma of lymph nodes of multiple [...] 8:00 AM EDT Infusion Hematology Oncology at [address] [phone] 09/21/2023 9:30 AM EDT Office Visit [place]ematology [place] [address] Micha Givens Jr., MD [facility] DR [place] [address] 09/21/2023 10:30 AM EDT Clinical Support [place] [address] Danii Her RN 09/26/2023 8:30 AM EDT Infusion Hematology Oncology at [address] [phone] 10/03/2023 9:00 AM EDT Office Visit Hematology/Oncology at [address] [phone] Adrianne Ramon MD [facility] DR [place] [address] Yael Merlos APRN [facility] [address] [place] [address] 10/03/2023 9:30 AM EDT Infusion Hematology Oncology at [address] [phone] 10/10/2023 8:30 AM EDT Infusion Hematology Oncology at [address] [phone] documented as of this encounter Procedures Procedure Name Priority Date/Time Associated Diagnosis Comments NM PET CT STANDARD PLUS EXTREMITIES AND HEAD STAT 10/12/2022 12:53 PM EDT Non-Hodgkin lymphoma of lymph nodes of multiple regions, unspecified non-Hodgkin lymphoma type 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 documented in this encounter Results * NM PET CT Standard Plus Extremities and Head (10/12/2022 12:53 PM EDT) Anatomical Region Laterality Modality Positron Emissio n Tomography (PET) Impressions 10/12/2022 3:23 PM EDT 1. ??Jerilyn involvement by lymphoma in the neck, chest, abdomen, and pelvis as above. 2. ??Mild diffusely increased activity throughout the spleen, highly suspicious for splenic involvement by lymphoma. 3. ??Mild diffusely increased marrow activity in the axial and proximal appendicular skeleton, consistent with reactive marrow and/or marrow involvement by lymphoma. I have personally reviewed the image(s) and the resident's interpretation and agree with the findings, Rohan Henley MD at 10/12/2022 3:23 PM Thank you for letting us participate in the care of this patient. ??If you are a health care provider and have any questions regarding this report, please contact the number below. ??For patients who have questions please contact the health lawn care technician that requested your imaging first. ? Electronically signed by: Rohan Henley MD, [facility] ([phone]), at 10/12/2022 3:23 PM Narrative 10/12/2022 3:23 PM EDT EXAMINATION: NM PET CT STANDARD PLUS EXTREMITIES AND HEAD CLINICAL HISTORY: Non-Hodgkin lymphoma, staging new large B cell lymphoma - involving oropharynx/ cervical. ??staging. TECHNIQUE: Procedure: Following IV injection of 28-mjhlzf-6-deoxyglucose (FDG) a standard uptake of approximately 60 minutes, a noncontrast CT scan followed by a PET scan were acquired from the top of head to bottom of feet. The noncontrast CT was used for anatomic localization and photon attenuation correction of the PET scan. Blood glucose level: 113 (mg/dL) FDG dose: 14.4 mCi COMPARISON: CT neck 09/21/2022 FINDINGS: HEAD/NECK: FDG avid adenopathy in the bilateral upper and lower cervical and supraclavicular regions. CHEST: Multiple FDG avid bilateral paratracheal, bilateral hilar, and bilateral axillary lymph nodes. Bibasilar atelectasis. Coronary and aortic calcifications. ABDOMEN/PELVIS: FDG avid adenopathy in the aortocaval, periaortic, bilateral common iliac, bilateral external iliac, and bilateral inguinal regions. Small FDG avid subcutaneous node in the right flank axial image 208). Mild diffusely increased activity throughout the spleen (slightly above reference liver background) with splenic size at the upper limit of normal. Simple right renal cyst. SKELETON/EXTREMITIES: Mild diffusely increased marrow activity of the axial and proximal appendicular skeleton. No focal osseous lesions. Normal activity in all soft tissue regions of the upper and lower extremities. Procedure Note Rohan Henley MD - 10/12/2022 EXAMINATION: NM PET CT STANDARD PLUS EXTREMITIES AND HEAD CLINICAL HISTORY: Non-Hodgkin lymphoma, staging new large B cell lymphoma - involving oropharynx/ cervical. staging. TECHNIQUE: Procedure: Following IV injection of 12-pxihwr-5-deoxyglucose(FDG) a standard uptake of approximately 60 minutes, a noncontrast CT scanfollowed by a PET scan were acquired from the top of head to bottom of feet. Thenoncontrast CT was used for anatomic localization and photon attenuation correction ofthe PET scan. Blood glucose level: 113 (mg/dL) FDG dose: 14.4 mCi COMPARISON: CT neck 09/21/2022 FINDINGS: HEAD/NECK: FDG avid adenopathy in the bilateral upper and lower cervical and supraclavicular regions. CHEST: Multiple FDG avid bilateral paratracheal, bilateral hilar, and bilateral axillary lymph nodes. Bibasilar atelectasis. Coronary and aortic calcifications. ABDOMEN/PELVIS: FDG avid adenopathy in the aortocaval, periaortic, bilateral commoniliac, bilateral external iliac, and bilateral inguinal regions. Small FDG avid subcutaneous node in the right flank axial image 208). Mild diffusely increased activity throughout the spleen (slightly above reference liver background) with splenic size at the upper limit ofnormal. Simple right renal cyst. SKELETON/EXTREMITIES: Mild diffusely increased marrow activity of the axial and proximalappendicular skeleton. No focal osseous lesions. Normal activity in all soft tissue regions of the upper and lowerextremities. IMPRESSION 1. Jerilyn involvement by lymphoma in the neck, chest, abdomen, and pelvisas above. 2. Mild diffusely increased activity throughout the spleen, highlysuspicious for splenic involvement by lymphoma. 3. Mild diffusely increased marrow activity in the axial and proximal appendicular skeleton, consistent with reactive marrow and/or marrowinvolvement by lymphoma. I have personally reviewed the image(s) and the resident's interpretationand agree with the findings, Rohan Henley MD at 10/12/2022 3:23 PM Thank you for letting us participate in the care of this patient. If youare a health care provider and have any questions regarding this report,please contact the number below. For patients who have questions please contactthe health lawn care technician that requested your imaging first. Adrianne Ramon [...] ONCE PRN, 1 dose, Starting on Jadyn 10/12/22 at 1115, Until Jadyn 10/12/22 at 1108, Per Protocol, Radiology Contrast, Routine Given 10/12/2022 11:08 AM EDT 14.4 mCi documented in this encounter Care Teams Jalousies Installer Relationship Specialty Start Date End Date Frederick Meade MD [address] [address] [address] [facility] [place] [address] PCP - General Family Medicine 11/29/17 documented as of this encounter
--- OUTSIDE RECORDS SUMMARY | 2023-09-17 01:36 | XMS_ITS | Encounter Summary ---
Author Organization [place] [address] Care Team Providers Care Save All Operator Name Role Phone Frederick Meade MD Primary Care Provider [phone] Encounter Details Date Type Department Care Team (Late st Contact Info) Description 10/11/2022 [place] [phone] Provider, Scanning Social History Tobacco Use Types Packs/Day Years [...] AM EDT Infusion Hematology Oncology at [address] [phone] 09/21/2023 9:30 AM EDT Office Visit Hematology [place] [address] Micha Givens Jr., MD [facility] DR [place] [address] 09/21/2023 10:30 AM EDT Clinical Support Hematology [place] [address] Danii Her RN 09/26/2023 8:30 AM EDT Infusion Hematology Oncology at [address] [address] 10/03/2023 9:00 AM EDT Office Visit Hematology/Oncology at [address] [phone] Adrianne Ramon MD [facility] [place] [address] Yael Merlos, KARLA [facility] [place] [address] 10/03/2023 9:30 AM EDT Infusion Hematology Oncology at [address] [phone] 10/10/2023 8:30 AM EDT Infusion Hematology Oncology at [address] [phone] documented as of this encounter Procedures Procedure Name Priority Date/Time Associated Diagnosis Comments SURGICAL PATHOLOGY SCAN Routine 10/11/2022 documented in this encounter Results * Scan Doc: Surgical Pathology (10/11/2022) Historical Provider MEDIA MGR SCAN EX T ORDR/RSLT documented in this encounter Visit Diagnoses Not on filedocumented in this encounter Care Teams Save All Operator Relationship Specialty Start Date End Date Frederick Meade MD [address] [place] [address] PCP - General Family Medicine 11/29/17 documented as of this encounter
--- OUTSIDE RECORDS SUMMARY | 2023-09-17 01:36 | XMS_ITS | Encounter Summary ---
Author Organization [facility] [place] [address] Care Team Providers Care Controls Engineer Name Role Phone Frederick Meade MD Primary Care Provider [phone] Encounter Details Date Type Department Care Team (Late Contact Info) Description 09/21/2022 10:05 PM EDT Ancillary Procedure [place] [phone] Thierry Ruiz MD [facility] [place] [address] Social History Tobacco Use Types Packs/Day Years [...] Encounters Date Type Department Care Team (Late Contact Info) Description 09/19/2023 8:00 AM EDT Infusion Hematology Oncology at [address] [phone] 09/21/2023 9:30 AM EDT Office Visit Hematology [place] [phone] Micha Givens Jr., MD [facility] DR [place] [address] 09/21/2023 10:30 AM EDT Clinical Support Hematology [place] [address] Danii Her RN 09/26/2023 8:30 AM EDT Infusion Hematology Oncology at [address] [phone] 10/03/2023 9:00 AM EDT Office Visit Hematology/Oncology at [address] [phone] Adrianne Ramon MD [facility] DR [place] [address] Yael Merlos APRN [facility] [place] [address] 10/03/2023 9:30 AM EDT Infusion Hematology Oncology at [address] [phone] 10/10/2023 8:30 AM EDT Infusion Hematology Oncology at [address] [phone] documented as of this encounter Procedures Procedure Name Priority Date/Time Associated Diagnosis Comments FILM LIBRARY STORAGE ONLY CT HEAD AND SPINE Routine 09/21/2022 10:02 PM EDT documented in this encounter Results * Film Library- Storage Only CT Head And Spine (09/21/2022 10:02 PM EDT) Narrative HENRIETTA - 09/21/2022 10:02 PM EDT This exam is auto-finalizing. It's purpose is for storage only. Thierry Ruiz MD IMG FILM LIBRARY ORD ERABLES [place], [place] documented in this encounter Visit Diagnoses Not on filedocumented in this encounter Care Teams Controls Engineer Relationship Specialty Start Date End Date Frederick Meade MD [address] [place] [address] PCP - General Family Medicine 11/29/17 documented as of this encounter
--- OUTSIDE RECORDS SUMMARY | 2023-09-17 01:36 | XMS_ITS | Encounter Summary ---
Author Organization [facility] [place] [address] Care Team Providers Care Entrepreneurial Finance Professor Name Role Phone Bobby Headley MD Primary Care Provider Encounter Details Date Type Department Care Team (Late st Contact Info) Description 03/01/2016 11:00 AM EST Office Visit Hematology/Oncology at [address] [phone] Annika Quezada APRN [facility] [place] [place] [address] Prostate cancer Social History Tobacco Use Types [...] Sign Reading Time Taken Comments Blood Pressure 161/80 03/01/2016 10:50 AM EST Pulse 58 03/01/2016 10:50 AM EST Temperature 36.7 ??C (98.1 ??F) 03/01/2016 10:[address] Respiratory Rate 18 03/01/2016 10:50 AM EST Oxygen Saturation 99% 03/01/2016 10:50 AM EST Inhaled Oxygen Concentration - - Weight 94.8 kg (209 lb) 03/01/2016 10:50 AM EST Height - - Body Mass Index 33.43 09/09/2015 10:29 AM EDT documented in this encounter Patient Instructions * Patient Instructions* Annika Quezada APRN - 03/01/2016 11:00 AM EST Return to clinic in three months with PSA, testosterone documented in this encounter Progress Notes * Annika Quezada APRN - 03/01/2016 11:00 AM EST Images from the original note were [...] elevated at 5.4 with only 9% free. [place] with Dr. Vergara July 2014 who offered biopsy which was performed 09/01/14, demonstrating Gleason4 + 3 disease in a single core at the right apex. Forty-five percent of that core did appear to be involved. Perineural invasion was not seen. Pathology had been reviewed here at [facility]. The patient is here today to [...] the prostate Field orientation: Dynamic arc VMAT Attending Anesthesiologist Target Coverage (70Gy isodose line indicated): Hormone [...] Biopsy 09/01/2014 Volume in cc 15 cc [place] grade/score a+b=c 4+3=7-- intermediate risk prostate cancer [...] by mouth 4 times daily as needed. No current facility-administered medications on file prior to visit. Social History Social History ??? Marital status: Spouse name: N/A ??? Number of children: N/A ??? 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 Smoking [...] to their sporting events. He went to [place] in September to attend a [id number] tournament and had a great time. He [...] Hematological: Negative. Psychiatric/Behavioral: Negative. KPS 100 Temp: [36.7 ??C (98.1 ??F)] Heart Rate: [58] Resp: [18] BP: (161)/(80) SpO2: [99 %] Heart Rate from SPO2: -- Objective: [...] content normal. Vitals reviewed. Date PSA testosterone 02/22/16 <0.1 122 11/22/15 <0.1 153 08/30/2015 < 0.1 171 05/11/2015 < 0.1 < 10 02/25/2015 < 0.1 Pretreatment PSA 5.4 Assessment and Plan: Cheo Freire is a 65 y.o.male with intermediate risk prostate cancer with pretreatment PSA of 5.4 [place] 4+3=7. He was treated with external beam [...] AM EDT Infusion Hematology Oncology at [address] [phone] 09/21/2023 9:30 AM EDT Office Visit Hematology [place] [address] Micha Givens Jr., MD [facility] DR [place] [address] 09/21/2023 10:30 AM EDT Clinical Support Hematology [place] [address] Danii Her RN 09/26/2023 8:30 AM EDT Infusion Hematology Oncology at [address] [phone] 10/03/2023 9:00 AM EDT Office Visit Hematology/Oncology at [address] [phone] Adrianne Ramon MD [facility] DR [place] [address] Yael Merlos APRN [facility] [place] [address] 10/03/2023 9:30 AM EDT Infusion Hematology Oncology at [address] [phone] 10/10/2023 8:30 AM EDT Infusion Hematology Oncology at [address] [phone] documented as of this encounter Visit Diagnoses Diagnosis Prostate cancer Malignant neoplasm of prostate documented in this encounter Care Teams Entrepreneurial Finance Professor Relationship Specialty Start Date End Date Bobby Headley MD [address] [place] [address] PCP - General 01/29/14 11/28/17 documented as of this encounter
--- OUTSIDE RECORDS SUMMARY | 2023-09-17 01:36 | XMS_ITS | Encounter Summary ---
[place] [address] Care Team Providers Care Workforce Staffing Advisor Name Role Phone Frederick Meade MD Primary Care Provider [phone] Reason for Visit * Reason Comments Radiation Follow-up prostate cancer Encounter Details Date Type Department Care Team (Late st Contact Info) Description 11/29/2017 1:45 PM EDT Office Visit Radiation Oncology at [address] [phone] Anna Carr [address] [place] [address] Malignant neoplasm of prostate Social [...] Sign Reading Time Taken Comments Blood Pressure 149/65 11/29/2017 1:39 PM EDT Pulse 68 11/29/2017 1:39 PM EDT Temperature 36.6 ??C (97.9 ??F) 11/29/2017 1:39 PM ED T Respiratory Rate 18 11/29/2017 1:39 PM EDT Oxygen Saturation 100% 11/29/2017 1:39 PM EDT Inhaled Oxygen Concentration - - Weight 93.2 kg (205 lb 6.4 oz) 11/29/2017 1:39 P M EDT Height 172.7 cm (5' 8) 11/29/2017 1:39 PM EDT Body Mass Index 31.23 11/29/2017 1:39 PM EDT documented in this encounter Patient Instructions * Patient Instructions* Anna Carr APRN - 11/29/2017 1:45 PM EDT Date PSA Testosterone (normal range of 240-950) 11/22/2017 < 0.1 207 05/23/2017 < 0.1 196 12/07/2017 < 0.1 183 05/16/2016 < 0.1 167 05/24/2016 < 0.1 02/22/2016 < 0.1 122 11/22/2015 < 0.1 153 08/30/2015 < 0.1 171 05/11/2015 < 0.1 < 10 02/25/2015 < 0.1 Pretreatment PSA 5.4 Vitals Office Visit from 11/29/2017 in Radiation Oncology at [facility] Weight 93.2 kg (205 lb 6.4 oz) Height 172.7 cm (5' 8) BSA (Calculated - sq m) 2.11 sq meters BMI (Calculated) 31.23 Temp 36.6 ??C (97.9 ??F) Temp src Oral Heart Rate 68 Heart Rate Source NIBP Resp 18 BP 149/65 BP Location Left arm Patient Position Sitting SpO2 100 % documented in this encounter Progress Notes * Anna Carr APRN - 11/29/2017 1:45 PM EDT Patient ID: Cheo Freire is a 67 [...] elevated at 5.4 with only 9% free. [place] with Dr. Vergara July 2014 who offered biopsy which was performed 09/01/14, demonstrating Gleason4 + 3 disease in a single core at the right apex. Forty-five percent of that core did appear to be involved. Perineural invasion was not seen. Pathology had been reviewed here at [facility]. The patient is here today [...] the prostate Field orientation: Dynamic arc VMAT [place] Code Enforcement Officer Target Coverage (70Gy isodose line indicated): Hormone [...] ??? TONSILLECTOMY 1958 No Known Allergies Medications 11/29/17 1354 Medication Sig Taking? allopurinol (ZYLOPRIM) 100 mg Tablet Take 100 [...] as needed. Reported on 05/24/2016 Social History Social History ??? Marital status: Spouse name: N/A ??? Number of children: N/A ??? 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 [...] file Social History Narrative Social history reviewed and updated Social Supports: [...] or finances. He is part of a bowling league and loves to bowl two to [...] last seen in clinic Mr Freire has been well. At the time of his last visit he was undergoing a comprehensive cardiac evaluation due to a syncopal episode. There were no concerning findings. Gout has been problematic in the past and with diet control and medications he has not had any flares in seven months. Cheo reports no urinary problems--no dysuria, [...] no diarrhea. He is not sexually active Q - Expanded Prostate Cancer Index Composite For Clinical Practice (Epic-Cp) ? Question 11/29/2017 ??2:14 PM EDT - Filled by Anna Carr APRN ? Urinary function problem No Problem ? Urinary control Total control ? # of pads used per day None ? Urinary dripping/leakage problem No problem ? 5. How big a problem, if any, has each of the following been for you? Pain or burning with urination No problem ? Weak urine stream/incomplete bladder emptying No problem ? Need to urinate frequently No problem ? 6. How big a problem, if any, has each of the following been for you? Rectal pain or urgency of bowel movements No problem ? Increased frequency of your bowel movements No problem ? Overall problems with your bowel movements No problem ? Bloody stools No problem ? 10. How big a problem, if any, has each of the following been for you? Hot flashes or breast tenderness/enlargement No problem ? Feeling depressed No problem ? Lack of energy No problem ? Urinary Incontinence Symptom Score (range: 0 - 12) 0 ? Urinary Irritation/Obstructive Symptom Score (range: 0 - 12) 0 ? Bowel Symptom Score (range: 0 - 16) 0 ? Vitality/Hormonal Symptom Score (range: 0 - 12) 0 ? Overall Prostate Cancer QOL Score (range: 0 - 60) 0 ? Review of Systems Constitutional: Negative. Negative for activity change, chills, diaphoresis, fatigue, fever and unexpected weight change. Has been bowling (three times a week) HENT: Negative. Eyes: Negative. Respiratory: Negative. Cardiovascular: Negative. Negative for [...] disturbance. KPS 100 Vitals Office Visit from 11/29/2017 in Radiation Oncology at [facility] Weight 93.2 kg (205 lb 6.4 oz) Height 172.7 cm (5' 8) BSA (Calculated - sq m) 2.11 sq meters BMI (Calculated) 31.23 Temp 36.6 ??C (97.9 ??F) Temp src Oral Heart Rate 68 Heart Rate Source NIBP Resp 18 BP 149/65 BP Location Left arm Patient Position Sitting [...] is no rebound and no guarding. Genitourinary: Rectum normal and prostate normal. Rectal exam shows guaiac negative stool. Genitourinary Comments: Rectal-- good sphincter tone. Prostate is smooth, flat, with no areas of induration, no tenderness, no masses. Guaiac negative Musculoskeletal: Normal range of motion. [...] thought content normal. Vitals reviewed. Date PSA Testosterone (normal range of 240-950) 11/22/2017 < 0.1 207 05/23/2017 < 0.1 [...] prostate cancer with pretreatment PSA of 5.4 [place] 4+3=7. He was treated with external beam [...] any questions or concerns in the interim. documented in this encounter Plan of Treatment Upcoming Encounters Date Type Department Care Team (Late st Contact Info) Description 09/19/2023 8:00 AM EDT Infusion Hematology Oncology at [address] [phone] 09/21/2023 9:30 AM EDT Office Visit Hematology [place] [address] Micha Givens Jr., MD [facility] DR [place] [address] 09/21/2023 10:30 AM EDT Clinical Support Hematology [place] [address] Danii Her RN 09/26/2023 8:30 AM EDT Infusion Hematology Oncology at [address] [phone] 10/03/2023 9:00 AM EDT Office Visit Hematology/Oncology at [address] [phone] Adrianne Ramon MD [facility] DR [place] [address] Yael Merlos APRN [facility] [place] [address] 10/03/2023 9:30 AM EDT Infusion Hematology Oncology at [address] [phone] 10/10/2023 8:30 AM EDT Infusion Hematology Oncology at [address] [phone] documented as of this encounter Procedures Procedure Name Priority Date/Time Associated Diagnosis Comments LAB SCAN 11/22/2017 12:00 AM EDT documented in this encounter Results * SCAN DOC: LAB (11/22/2017 12:00 AM EDT) Narrative 11/22/2017 12:00 AM EDT Ordered by an unspecified provider. Scanning Provider MEDIA MGR SCAN EXT O RDR/RSLT documented in this encounter Visit Diagnoses Diagnosis Malignant neoplasm of prostate documented in this encounter Care Teams Workforce Staffing Advisor Relationship Specialty Start Date End Date Frederick Meade MD [address] [place] [address] PCP - General Family Medicine 11/29/17 documented as of this encounter
--- OUTSIDE RECORDS SUMMARY | 2023-09-17 01:36 | XMS_ITS | Encounter Summary ---
[place] [address] Care Team Providers Care Review Appraiser Name Role Phone Bobby Headley MD Primary Care Provider [phone] Encounter Details Date Type Department Care Team (Late st Contact Info) Description 12/14/2016 3:45 PM EDT Office Visit Hematology/Oncology at [address] [phone] Nancy Stratton, TECHNICAL PROGRAMS MANAGER [address] [facility] [place] [address] Malignant neoplasm of prostate Social History Tobacco [...] Sign Reading Time Taken Comments Blood Pressure 166/65 12/14/2016 3:55 PM EDT Pulse 62 12/14/2016 3:55 PM EDT Temperature 36.7 ??C (98.1 ??F) 12/14/2016 3:55 PM ED T Respiratory Rate 16 12/14/2016 3:55 PM EDT Oxygen Saturation 98% 12/14/2016 3:55 PM EDT Inhaled Oxygen Concentration - - Weight 94.3 kg (208 lb) 12/14/2016 3:55 PM EDT Height 168.4 cm (5' 6.3) 12/14/2016 3:55 PM EDT Body Mass Index 33.27 12/14/2016 3:55 PM EDT documented in this encounter Progress Notes * Nancy Stratton, TECHNICAL PROGRAMS MANAGER - 12/14/2016 3:45 PM EDT Images from the original note were not included. Patient ID: Cheo Freire is a 66 y.o. male with intermediate risk prostate cancer with pretreatment PSA of 5.4 [place] 4+3=7. He was treated with external beam radiation for total dose of 79.2 Gywhich was completed on 01/26/2015. He is in clinic today for scheduled follow up. HPI Cheo Freire is a 64-year-old man diagnosed with intermediate risk prostate cancer. He was noted to have testicular enlargement and scrotal swelling early this spring. However, ultrasound demonstrated the swelling and testicular enlargement to have resolved. PSA was tested at that time and noted to be slightly elevated at 3.9. Repeat PSA in June was elevated at 5.4 with only 9% free. He met withDr. Vergara July 2014 who offered biopsy which was performed 09/01/14, demonstrating [place] 4 + 3 disease in a single core at the right apex. Forty-five percent of that core did appear to be involved.Perineural invasion was not seen. Pathology had been reviewed here at [facility]. He did have a prolo nged discussion with Dr. Vergara regarding the risks and benefits involved with prostatectomy, and made a decision to proceed with radiotherapy. IPSS: 3 with [...] the prostate Field orientation: Dynamic arc VMAT Industrial Health And Safety Professor Target Coverage (70Gy isodose line indicated): Hormone [...] Biopsy 09/01/2014 Volume in cc 15 cc [place] grade/score a+b=c 4+3=7-- intermediate risk prostate cancer [...] of education: N/A Occupational History ??? 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 Smoking [...] to their sporting events. He went to [place] last September to attend a [place] andhad a great time. He feels he is coping well. Interim History: Mr Freire reports that he is doing well. He has had no new medical issues since his last visit. He reports no urinary problems--no dysuria, no hematuria and no incontinence. His IPSSS score is 6.He indicates that he is very pleased with his urinary function. Not sexually active and not interested in an implant. International Prostate Symptom Score Total Score_7___ 0 1 2 3 4 5 Not at all Less than one time in five Less than half of the time About half of the time More than half of the time Almost always Incomplete emptying X frequency x intermittency X urgency X Weak stream x Flow resistance X Not at all Every eight hours Every four hours Every three hours Every 2 hours Every hour nocturia X His bowels have been moving regularly with no hematochezia, no melena, no constipation and no diarrhea. Review of Systems Constitutional: Negative for activity change, chills, fatigue, fever and unexpected weight change. No pain HENT: Negative. Respiratory: Negative. Cardiovascular: [...] Negative. Neurological: Negative. Hematological: Negative. Psychiatric/Behavioral: Negative. BP 166/65 (Patient Position: Sitting) Pulse 62 Temp 36.7 ??C (98.1 ??F) (Oral) Resp 16 Ht 168.4 cm (5' 6.3) Wt 94.3 kg (208 lb) SpO2 98% BMI 33.27 kg/m2 Wt Readings from Last 3 Encounters: 12/14/16 94.3 kg (208 lb) 05/24/16 95.7 kg (211 lb) 03/01/16 94.8 kg (209 lb) Objective: Physical Exam Constitutional: He is oriented to person, place, and time. He appears well- developed and well-nourished. No distress. HENT: Head: Atraumatic. Eyes: Conjunctivae and EOM are normal. Neck: Neck supple. Cardiovascular: Normal rate and normal heart sounds. No murmur heard. Pulmonary/Chest: Effort normal and breath sounds normal. He exhibits no tenderness. Abdominal: Soft. Bowel sounds are normal. He exhibits no distension. There is no tenderness. : rectal exam deferred Musculoskeletal: Normal range of motion. He exhibits [...] content normal. Vitals reviewed. Date PSA testosterone 12/07/16 <0.1 183 05/16/16 <0.1 167 02/22/16 <0.1 122 11/22/15 <0.1 153 08/30/2015 < 0.1 171 05/11/2015 < 0.1 < 10 02/25/2015 < 0.1 Pretreatment PSA 5.4 Assessment and Plan: Cheo Freire is a 66 y.o.male with intermediate risk prostate cancer with pretreatment PSA of 5.4 [place] 4+3=7. He was treated with external beam radiation for total dose of 79.2 Gy which was completed on 01/26/2015 and six months of ADT. Now nearly 2yrs out. He is doing well with no late effects from treatment that are concerning or bothersome. His testosterone level is slow to normalize butis now above castrate level and his biochemical response to treatment is excellent. IPSS stable. Heis seeing his PCP in 2wks. Plan: 1. Return to clinic in 6 months with PSA, testosterone and clinical evaluation 2. Patient is to call with any questions or concerns in the interim. Nancy Stratton, MSN, CAD DRAFTSMAN, AOCN Hematology/Oncology Nurse Practitioner [place], [place] [phone] . documented in this encounter Plan of Treatment Upcoming Encounters Date Type Department Care Team (Late st Contact Info) Description 09/19/2023 8:00 AM EDT Infusion Hematology Oncology at [address] [phone] 09/21/2023 9:30 AM EDT Office Visit Hematology [place] [address] Micha Givens Jr., MD [facility] DR HEMATOLOGY [place] [address] 09/21/2023 10:30 AM EDT Clinical Support Hematology [place] [address] Danii Her RN 09/26/2023 8:30 AM EDT Infusion Hematology Oncology at [address] [phone] 10/03/2023 9:00 AM EDT Office Visit Hematology/Oncology at [address] [phone] Adrianne Ramon MD [facility] DR HEMATOLOGY [place] [address] Yael Merlos APRN [facility] HEMATOLOGY [place] [address] 10/03/2023 9:30 AM EDT Infusion Hematology Oncology at [address] [phone] 10/10/2023 8:30 AM EDT Infusion Hematology Oncology at [address] [phone] documented as of this encounter Visit Diagnoses Diagnosis Malignant neoplasm of prostate documented in this encounter Care Teams Review Appraiser Relationship Specialty Start Date End Date Bobby Headley MD [address] [place] [address] PCP - General 01/29/14 11/28/17 documented as of this encounter
--- OUTSIDE RECORDS SUMMARY | 2023-09-17 01:36 | XMS_ITS | Encounter Summary ---
[place] [address] Care Team Providers Care Bank Advisor Name Role Phone Bobby Headley MD Primary Care Provider [phone] Reason for Visit * Reason Comments Radiation Follow-up prostate cancer Encounter Details Date Type Department Care Team (Late st Contact Info) Description 09/09/2015 10:30 AM EDT Office Visit Radiation Oncology at [address] [phone] [address] Carr [address] [place] [address] Malignant neoplasm of prostate Social [...] Sign Reading Time Taken Comments Blood Pressure 154/74 09/09/2015 10:29 AM EDT Pulse 54 09/09/2015 10:29 AM EDT Temperature 36.6 ??C (97.9 ??F) 09/09/2015 1 0:29 AM EDT Respiratory Rate 18 09/09/2015 10:2 9 AM EDT Oxygen Saturation 100% 09/09/2015 10: 29 AM EDT Inhaled Oxygen Concentration - - Weight 93.4 kg (206 lb) 09/09/2015 10:2 9 AM EDT w/o shoes Height 168.4 cm (5' 6.3) 09/09/2015 10 :29 AM EDT actual w/o shoes Body Mass Index 32.95 09/09/2015 10:29 AM EDT documented in this encounter Patient Instructions * Patient Instructions* Anna Carr APRN - 09/09/2015 10:30 AM EDT Date PSA testosterone 08/30/2015 < 0.1 171 05/11/2015 < 0.1 < 10 02/25/2015 < 0.1 Pretreatment PSA 5.4 Vitals Office Visit from 09/09/2015 in [facility] Radiation Oncology Weight - Scale 93.4 kg (206 lb) [w/o shoes] Height 168.4 cm (5' 6.3) [actual w/o shoes] BSA (Calculated - sq m) 2.09 sq meters BMI (Calculated) 33 Temp 36.6 ??C (97.9 ??F) Temp Source Oral Heart Rate 54 Resp 18 BP 154/74 BP Location Left arm Patient Position Sitting SpO2 100 % documented in this encounter Progress Notes * Anna Carr APRN - 09/09/2015 10:30 AM EDT Images from the original [...] elevated at 5.4 with only 9% free. [place] with Dr. Vergara July 2014 who offered biopsy which was performed 09/01/14, demonstrating Gleason4 + 3 disease in a single core at the right apex. Forty-five percent of that core did appear to be involved. Perineural invasion was not seen. Pathology had been reviewed here at [facility]. The patient is here today to [...] the prostate Field orientation: Dynamic arc VMAT Writer Editor Target Coverage (70Gy isodose line indicated): Hormone [...] Take 81 mg by mouth daily. ??? polyethylene glycol (MIRALAX) 17 gram Powder in Packet Take 17 g by mouth daily. No current facility-administered medications on file prior to visit. Social History Social History ??? Marital status: Spouse name: N/A ??? Number of children: N/A ??? 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 He will be going to [place] in September to attend a [employer] tournament. He feels he is coping well. Interim History: Mr Freire reports that he is doing well. He had an episode of faintness a few weeks ago and as a result went to the ER. He reports no urinary problems--no dysuria, no [...] Negative. KPS 100 Vitals Office Visit from 09/09/2015 in [facility] Radiation Oncology Weight - Scale 93.4 kg (206 lb) [w/o shoes] Height 168.4 cm (5' 6.3) [actual w/o shoes] BSA (Calculated - sq m) 2.09 sq meters BMI (Calculated) 33 Temp 36.6 ??C (97.9 ??F) Temp Source Oral Heart Rate 54 Resp 18 BP 154/74 BP Location Left arm Patient Position Sitting [...] content normal. Vitals reviewed. Date PSA testosterone 08/30/2015 < 0.1 171 05/11/2015 < 0.1 < 10 02/25/2015 < 0.1 Pretreatment PSA 5.4 Assessment and Plan: Cheo Freire is a 65 y.o. male with intermediate risk prostate cancer with pretreatment PSA of 5.4 [place] 4+3=7. He was treated with external beam [...] AM EDT Infusion Hematology Oncology at [address] [phone] 09/21/2023 9:30 AM EDT Office Visit [place] [address] Micha Givens Jr., MD [facility] [address] HEMATOLOGY [place] [address] 09/21/2023 10:30 AM EDT Clinical Support [place] [phone] Danii Her RN 09/26/2023 8:30 AM EDT Infusion Hematology Oncology at [address] [phone] 10/03/2023 9:00 AM EDT Office Visit Hematology/Oncology at [address] [phone] Adrianne Ramon MD [facility] DR HEMATOLOGY [place] [address] Yael Merlos APRN [facility] DR HEMATOLOGY [place] [address] 10/03/2023 9:30 AM EDT Infusion Hematology Oncology at [address] [phone] 10/10/2023 8:30 AM EDT Infusion Hematology Oncology at [address] [phone] documented as of this encounter Visit Diagnoses Diagnosis Malignant neoplasm of prostate documented in this encounter Care Teams Bank Advisor Relationship Specialty Start Date End Date Bobby Headley MD [address] [place] [address] PCP - General 01/29/14 11/28/17 documented as of this encounter
--- OUTSIDE RECORDS SUMMARY | 2023-09-17 01:36 | XMS_ITS | Encounter Summary ---
Author Organization [facility] [place] [address] Care Team Providers Care Nurse Name Role Phone Frederick Meade MD Primary Care Provider [phone] Encounter Details Date Type Department Care Team (Latest Contact Info) Description 09/22/2022 12:50 AM EDT Ancillary Procedure [place] [address] Thierry Ruiz MD [facility] [place] [address] Nasopharyngeal mass Social History Tobacco Use Types Packs/Day Years [...] 8:00 AM EDT Infusion Hematology Oncology at [address] [phone] 09/21/2023 9:30 AM EDT Office Visit Hematology [place] [phone] Micha Givens Jr., MD [facility] DR HEMATOLOG[place] [address] 09/21/2023 10:30 AM EDT Clinical Support Hematology [place] [address] Danii Her RN 09/26/2023 8:30 AM EDT Infusion Hematology Oncology at [address] [phone] 10/03/2023 9:00 AM EDT Office Visit Hematology/Oncology at [address] [phone] Adrianne Ramon MD [facility] DR [place]AT[place] [address] Yael Merlos APRN [facility] [place] [address] 10/03/2023 9:30 AM EDT Infusion Hematology Oncology at [address] [phone] 10/10/2023 8:30 AM EDT Infusion Hematology Oncology at [address] [phone] documented as of this encounter Procedures Procedure Name Priority Date/Time Associated Diagnosis Comments REQUEST FOR 2ND READ CT NECK Routine 09/22/2022 12:45 AM EDT Nasopharyngeal mass documented in this encounter Results * Request For 2nd Read CT Neck (09/22/2022 12:45 AM EDT) Anatomical Region Laterality Modality Neck SO Impressions 09/22/2022 3:13 PM EDT 1. ??Extensive lymphadenopathy and lymphoid enlargement. Some nodes with central low-density. The differential diagnosis for this appearance includes lymphoma, metastatic disease including HPV associated squamous cell carcinoma, Castleman disease. HIV is another consideration given enlargement of Waldeyer's ring. The extent and degree of abnormalities is unlikely to be due to infection alone. 2. ??Partially enhancing low-density retropharyngeal structure with minimal soft tissue component may reflect an abscess or suppurative lymph node, especially if the patient has signs or symptoms of infection. 3. ??Associated prevertebral edema extends caudally to the level of the cricoid. 4. ??No CT signs of discitis-osteomyelitis in the cervical spine. 5. ??Benign-appearing right thyroid nodule, based on size alone follow-up with outpatient thyroid ultrasound is recommended. 6. ??Base of tongue enlargement may reflect tonsillar hyperplasia. Right retromolar trigone soft tissue somewhat suspicious for neoplasm, direct inspection recommended. Thank you for letting us participate in the care of this patient. ??If you are a health care provider and have any questions regarding this report, please contact the number below. ??For patients who have questions please contact the health day care provider that requested your imaging first. ? Narrative 09/22/2022 3:13 PM EDT EXAMINATION: REQUEST FOR 2ND READ CT NECK CLINICAL HISTORY: Nasopharyngeal fluid collection vs infected node, retropharyngeal adenopathy, BOT fullness, RIGHT thyroid lesion; Sending Institution [facility]; Date of exam 09/21/2022; I believe a reinterpretation of this exam may alter care of Patient. Yes TECHNIQUE: CT of the neck with intravenous contrast. COMPARISON: None FINDINGS: There are numerous (more than 20) enlarged bilateral cervical nodes, as well as lymphadenopathy in the supraclavicular fossae and upper mediastinum. Most are solid, however 5-10 of the smaller nodes are centrally hypoattenuating which could represent necrotic or cystic components. The largest node is solid, 2.8 cm in right level IIb. In the central and right retropharyngeal space at the C2 level there is a bilobed low-density structure with a partial thin rim of enhancement, 1.6 x 4.3 cm on axial series 14 image 39 and 2.6 cm craniocaudal dimension. There is a moderate amount of prevertebral edema between this structure and the cricoid cartilage (C5-C6 level). Prominent nasopharyngeal inflammatory tissue, much greater than expected in this age group. Asymmetric nodular soft tissue in the valleculae, left greater than right, could reflect enlarged lingual tonsils in this setting. However asymmetric soft tissue in the right retromolar trigone is an atypical location of lymphoid hyperplasia and could represent a mass. The findings above reflect enlargement of Waldeyer's ring and result in moderate narrowing of the oropharynx. The remainder of the visualized aerodigestive tract is normal. The otomastoid spaces and visualized paranasal sinuses are clear. Included portions of the orbits and intracranial contents are unremarkable. The teeth are absent. The major salivary glands are normal. Homogeneous hyperattenuating right thyroid nodule measures 2.2 cm. No aggressive osseous lesions or suspicious erosions. No acute cervical spine fractures. Procedure Note Kervin Lam MD - 09/22/2022 EXAMINATION: REQUEST FOR 2ND READ CT NECK CLINICAL HISTORY: Nasopharyngeal fluid collection vs infected node, retropharyngeal adenopathy, BOT fullness, RIGHT thyroid lesion; Sending Institution [facility]; Date of exam 09/21/2022; I believe a reinterpretation ofthis exam may alter care of Patient. Yes TECHNIQUE: CT of the neck with intravenous contrast. COMPARISON: None FINDINGS: There are numerous (more than 20) enlarged bilateral cervical nodes, aswell as lymphadenopathy in the supraclavicular fossae and upper mediastinum. Mostare solid, however 5-10 of the smaller nodes are centrally hypoattenuatingwhich could represent necrotic or cystic components. The largest node is solid,2.8 cm in right level IIb. In the central and right retropharyngeal space at the C2 level there urbano bilobed low-density structure with a partial thin rim of enhancement, 1.6x 4.3 cm on axial series 14 image 39 and 2.6 cm craniocaudal dimension. There urbano moderate amount of prevertebral edema between this structure and thecricoid cartilage (C5-C6 level). Prominent nasopharyngeal inflammatory tissue, much greater than expectedin this age group. Asymmetric nodular soft tissue in the valleculae, left greaterthan right, could reflect enlarged lingual tonsils in this setting. However asymmetric soft tissue in the right retromolar trigone is an atypicallocation of lymphoid hyperplasia and could represent a mass. The findings above reflect enlargement of Waldeyer's ring and result inmoderate narrowing of the oropharynx. The remainder of the visualized aerodigestivetract is normal. The otomastoid spaces and visualized paranasal sinuses areclear. Included portions of the orbits and intracranial contents areunremarkable. The teeth are absent. The major salivary glands are normal. Homogeneous hyperattenuating right thyroid nodule measures 2.2 cm. No aggressiveosseous lesions or suspicious erosions. No acute cervical spine fractures. IMPRESSION 1. Extensive lymphadenopathy and lymphoid enlargement. Some nodes withcentral low-density. The differential diagnosis for this appearance includeslymphoma, metastatic disease including HPV associated squamous cell carcinoma,Castleman disease. HIV is another consideration given enlargement of Waldeyer'sring. The extent and degree of abnormalities is unlikely to be due to infectionalone. 2. Partially enhancing low-density retropharyngeal structure with minimalsoft tissue component may reflect an abscess or suppurative lymph node,especially if the patient has signs or symptoms of infection. 3. Associated prevertebral edema extends caudally to the level of thecricoid. 4. No CT signs of discitis-osteomyelitis in the cervical spine. 5. Benign-appearing right thyroid nodule, based on size alone follow-upwith outpatient thyroid ultrasound is recommended. 6. Base of tongue enlargement may reflect tonsillar hyperplasia. Right retromolar trigone soft tissue somewhat suspicious for neoplasm, direct inspection recommended. Thank you for letting us participate in the care of this patient. If youare a health care provider and have any questions regarding this report,please contact the number below. For patients who have questions please contactthe health day care provider that requested your imaging first. Thierry Ruiz MD IMG OUTSIDE INTERPRE TATION ORDERABLES documented in this encounter Visit Diagnoses Diagnosis Nasopharyngeal mass Unspecified disease of pharynx documented in this encounter Care Teams Nurse Relationship Specialty Start Date End Date Frederick Meade MD [address] [place] [address] PCP - General Family Medicine 11/29/17 documented as of this encounter
--- OUTSIDE RECORDS SUMMARY | 2023-09-17 01:36 | XMS_ITS | Encounter Summary ---
[place] [address] Care Team Providers Care Tile Designer Name Role Phone Frederick Meade MD Primary Care Provider [phone] Reason for Referral * Diagnostic Test (Routine) - Closed Specialty Diagnoses / Procedures Referred By Contac t Referred To Contact Radiology Diagnoses 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 Procedures IR Mediport Placement Adrianne Ramon MD [facility] DR HEMATOLOGY [place] [address] [place] [address] Referral ID Status Reason Start Date Expiration Date V isits Requested Visits Authorized [id number] Closed Specialty Service Requested 10/11/2022 04/13/2024 1 1 * Diagnostic Test (Routine) - Closed Specialty Diagnoses / Procedures Referred By Contac t Referred To Contact Radiology Diagnoses Non-Hodgkin lymphoma of lymph nodes of multiple regions, unspecified non-Hodgkin lymphoma type 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 Procedures NM PET CT Standard Plus Extremities and Head Adrianne Ramon MD [facility] [address] HEMATOLOGY [place] [address] [place] [address] Referral ID Status Reason Start Date Expiration Date V isits Requested Visits Authorized [id number] Closed Specialty Service Requested 10/10/2022 04/12/2024 1 2 Reason for Visit * Consultation (Routine) - Closed Specialty Diagnoses / Procedures Referred By Contac t Referred To Contact Hematology and Oncology Diagnoses Diffuse large B-cell lymphoma, unspecified body region Lg Ramírez MD [address] [place] [id number] [address] [facility] Onc Office [address] [place] [phone] Referral ID Status Reason Start Date Expiration Date V isits Requested Visits Authorized [id number] Closed Consult, Test & Treat 10/10/2022 10/10/2023 1 1 Encounter Details Date Type Department Care Team (Late st Contact Info) Description 10/11/2022 12:00 PM EDT Office Visit Hematology/Oncology at [address] [phone] Adrianne Ramon MD [facility] [address] HEMATOLOGY [place] [address] Non-Hodgkin lymphoma of lymph nodes of multiple [...] Sign Reading Time Taken Comments Blood Pressure 154/75 10/11/2022 11:39 AM EDT Pulse 70 10/11/2022 11:39 AM EDT Temperature 36.4 ??C (97.5 ??F) 10/11/2022 11:39 AM E DT Respiratory Rate 16 10/11/2022 11:39 AM EDT Oxygen Saturation 99% 10/11/2022 11:39 AM EDT Inhaled Oxygen Concentration - - Weight 97.1 kg (214 lb) 10/11/2022 11:39 AM EDT Height 167.6 cm (5' 6) 10/11/2022 11:39 AM EDT Body Mass Index 34.54 10/11/2022 11:39 AM EDT documented in this encounter Progress Notes * Adrianne Ramon MD - 10/11/2022 12:00 PM EDT Hematology Clinic [facility] [place] [address] NEW PATIENT EVALUATION Patient Active Problem List Diagnosis 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 Anemia, iron deficiency Gout Malignant neoplasm of prostate HISTORY OF PRESENT ILLNESS: Patient prefers to be called: Cheo Support person(s) : Prema son Cheo It was my pleasure to meet Cheo Freire today. Cheo Freire is a 72 y.o. year old male being seen for evaluation of of newly diagnosed B cell lymphoma. he is referred in consultaion from Dr Lg Ramírez ENT. 4 week h/o of sinus swelling and then cervial LN and could not breath. ~2 weeks ago saw [facility] and when to [facility]. No beds so sent to [facility] for [address] CAP, MRI,and [...] x7 days with nice response. Pathology from [facility] reports large B-cell lymphoma. Double expresser. FISH for translocations are pending. Tongue swelling. No wt loss. Eating and drinking OK. No fevers, infections, No NS. Pain in neck.Prednisone 60mg daily X 7 days. I feel great on prednisone last day of prednisone is today Took iron supplements per PCP - unclear cause. - last COLO at [facility] was 01/17/2012. This dictation platform is no longer active. Please use [employer]. 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 6 mos of adjuvant Lupron. Total dose 79.2 Gy completed 01/26/15 09/29/22 Large B Cell lymphoma - biopsy of tongue and needle of cervical LN. FISH pending. PMHX: Pre- DM type II ~ 15 years - not requiring medications Hypertension 2015 Prostate CA - lupron and XRT Gout Diverticulosis without diverticulitis Anemia Cataract PSHX: Appendectomy as a child Tonsillectomy as a child 2013 bilateral ing surgery ROS Energy level:stable Pain: controlled on Prednisone Appetite:good Unexpected weight loss or gain:No change Change in adenopathy or other masses: see HPI Fevers/chills/sweats:No Bruising/bleeding/melena:No Recent infections:No Headaches:neg Vision:neg Hearing:neg Sinus: stuffy Seasonal Allergies: neg Mouth sores:neg Dentition: Good Swallowing: neg GERD : neg Nausea/vomiting: neg diarrhea/constipation:No SOB/CONTEH/pulmonary sx: occ breathing catches Cardiac symptoms: no sx: negative Skin rashes or petechiae:No Musculoskeletal complaints:No Extremities: Negative upper and lower bilaterally Neurologic symptoms:No Mental Status changes: neg Mood: Normal - but lots of thoughts in his head since on prednisone Sleep: no difficulty sleeping on prednisone MEDS: Outpatient Medications Marked as Taking for the 10/11/22 encounter (Office Visit) with Adrianne Ramon MD Medication Sig Dispense Refill amLODIPine (Norvasc) 5 [...] Tablet Take 100 mg by mouth daily. aspirin 81 mg Tablet, Chewable Take 81 mg by mouth daily. Allergies: No Known Allergies FAMILY HISTORY: Mother: ETOH Cirrhosis Father: DM Sibs: Sister alive w/ DM ; 1/2 bro with DM, poorly controlled. Children: son pre-DM Other: negative SOCIAL HISTORY Personal: Prema 37 years (third marriage, divorce and ) 4 children only 1 biologic. Son Cheo Freire. Enjoys reads, movies, race car, cards. [employer]. 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 Not a . ETOH: 1-3 beers per week Smoking: Quit 1985. Approximately 78-anpc-uuof history Vaping or electronic cigarettes: denies Chewing tobacco: denies Marijuana or other recreational drug use: none HIPPA Contact Permission: Prema and Cheo. Also OK to talk to Premas adult children. OK to leave message with medical information on home or cell phone: home phone PHYSICAL EXAM BP 154/75 (Patient Position: Sitting) Pulse 70 Temp 36.4 ??C (97.5 ??F) (Temporal) Resp 16 Ht 167.6 cm (5' 6) Wt 97.1 kg (214 lb) SpO2 99% BMI 34.54 kg/m?? Body surface area is 2.13 meters squared. GENERAL: Cheo Freire appears well and is in no acute distress. ENT: Oral pharynx clear. EYES: ELSI NECK: Supple without adenopathy. AXILLARY: no adenopathy INGUINAL LN: no adenopathy [...] (with Diff) Result Value Ref Range WBC 11.95 Hemoglobin 10.8 Hematocrit 32.1 Platelets 290 Neutr Abs (ANC) 9.67 Comprehensive metabolic panel (non-fasting) Result Value Ref Range BUN 20 Creatinine 1.2 Sodium 134 Potassium 4.0 Total Bilirubin 0.3 AST 15 ALT 49 LDH 283 Iron 62 Iron Saturation 29 Ferritin 139 TIBC 214 PATHOLOGY: Final Diagnosis A. Tongue base, left: -Large B-cell lymphoma, incompletely classified. See comment. Diagnosis Comment The findings are those of a large B-cell lymphoma that exhibits a non-germinal center immunophenotype and expresses Myc and BCL-2 protein (Double Expressor.) Flow cytometry ([id number]) supports this interpretation. The differential classification of this lesion is diffuse large B-cell lymphoma versus high grade B-cell lymphoma with MYC and BCL-2 rearrangement. Material has been sent to [facility] to assess the status of these genes by FISH and an addendum report with a definitive classification will be issued upon receipt of the result. RADIOLOGY STUDIES REVIEWED: 09/22/2022 CT Neck -selected parts dictated below [...] undergo investigation with ultrasound. CT CAP at [facility], report and images have been requested. ASSESSMENT/PLAN: Cheo Freire is a very pleasant 72 y.o. male referred by Dr Lg Ramírez of ENT for newly diagnosed large B cell lymphoma.. It was a pleasure to meet Cheo, his Prema, and his son Cheo. I explained the basics of lymphoma. I emphasized that chemotherapy is the mainstay of treatment. We will obtain his pathology from [facility], but it appears to be a large cell lymphoma, double expresser, therefore his treatment will most likely be RCHOP chemotherapy. If he were to have a double hit lymphoma, we may change that to DA-R-EPOCH, but we will start with RCHOP for cycle #1. Given concerns for airway control (prior to prednisone) there is urgency in getting his treatment done. I was able to ar range echocardiogram and PET scan for tomorrow. He also needs Mediport, and chemotherapy teaching. I will plan to see him tomorrow at [facility] after the PET scan for brief review of the PET scan and discussion of next steps. I did explain to the patient and his family that he most likely will receive R-CHOP chemotherapy which is given 1 day as an outpatient and [facility] and repeated every 3 weeksfor a total of 6 cycles. This takes about 4-1/2 months to complete. I anticipate his lymphoma will respond well. Suspected MEHNAZ - Hgb drop 3gm in last 2 weeks. Taking oral iron 2 tabs per day. Stools have been backside grinder recently. No COLO in last 10 years. Will add iron studies to labs today and check PET tomorrow.Will follow. Labs seem most consistent with anemia of chronic disease. Prostate Cancer -DAVE at this time Plan: PET tomorrow [facility] Obtain Path for review at [facility] - follow on FISH Obtain records from [facility] -CT chest abdomen and pelvis, discharge summary, and MRI Prednisone -we will hold for now. Await PET scan tomorrow. Mediport -order placed and requested today PTI -on 10/18 at 8 AM with Yael Merlos at [facility] ECHO-tomorrow at [facility] Add on MEHNAZ labs -results returned and listed above Labs on day of PET at [facility] Consult social work at next visit -not yet discussed Consult nutrition at next visit -not yet discussed Plan allopurinol X 14 d w/ C#1 Support with Onpro ID - acv prophy - add antibiotics only if neutropenic. Labs tomorrow at [facility] - hep B/C, HIV, uric I discussed all of the above with the patient and all of his questions were answered. Support and counseling as appropriate. This note was written or modified using [employer] voice recognition software. The final note was screened for lease attendant errors. Please excuse any remaining errors. total time: time in counselling: Copy Frederick Meade MD * Polly Orellana RN - 10/11/2022 12:00 PM EDT [facility] Patient Medical Oncology Note SOCIAL ASSESSMENT: See [facility] social assessment information entered. 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 [ x ] yes [ ] no Local Pharmacy: [facility] FUNCTIONAL SCREENING: Balance difficulty: [ x ]no [ ]yes At risk for fall: [ ] no [ ] yes If yes, actions implemented to prevent fall. Patient/family instructed to avoid independent ambulation. Use wheelchair and ask for assistance of staff while in the clinic. ADL [x ] no limits [ ] needs dressing assistance [ ] needs meal assistance Assistive device:[ x]none [ ]cane [ ]walker [ ]wheelchair [ ]other: explain PAIN ASSESSMENT: [ 0 ] out of 10 Location: Description: [ ] Dull [ ] Sharp [ ] Burning [ ] Throbbing [ ] Radiating [ ] Continuous [ ] Intermittent Aggravating Factors: [ ] Movement [ ] Position [ ] Immobility [ ] Other Alleviating Factors: [ ] Medication [ ] Positioning [ ] Other Current Pain Management Plan: [ ] Satisfied [ ] Not satisfied LEARNING STYLE: Learning Needs Assessment up to date (yearly) [ ] TEACHING: __ NCI ???Chemotherapy and You?? and folder given __ Specific chemotherapy literature provided and reviewed with patient VASCULAR ACCESS ASSESSMENT: getting chemo? [ ]yes [ ]no Need port? [ ] yes [ ] no documented in this encounter Plan of Treatment Upcoming Encounters Date Type Department Care Team (Late st Contact Info) Description 09/19/2023 8:00 AM EDT Infusion Hematology Oncology at [address] [phone] 09/21/2023 9:30 AM EDT Office Visit [place]ology [place] [address] Micha Givens Jr., MD [facility] DR HEMATOLOGY [place] [address] 09/21/2023 10:30 AM EDT Clinical Support [place]ology [place] [address] Danii Her RN 09/26/2023 8:30 AM EDT Infusion Hematology Oncology at [address] [phone] 10/03/2023 9:00 AM EDT Office Visit Hematology/Oncology at [address] [phone] Adrianne Ramon MD [facility] DR HEMATOLOGY [place] [address] Yael Merlos, KARLA [facility] DR HEMATOLOGY [place] [address] 10/03/2023 9:30 AM EDT Infusion Hematology Oncology at [address] [phone] 10/10/2023 8:30 AM EDT Infusion Hematology Oncology at [address] [phone] Scheduled Orders Name Type Priority Associated Diagnoses Orde r Schedule Iron and TIBC Lab STAT Iron deficiency anemia, unspecified iron deficiency anemia type Expected: 10/11/2022, Expires: 01/11/2023 Ferritin Lab STAT Iron deficiency anemia, unspecified iron deficiency anemia type Expected: 10/11/2022, Expires: 01/11/2023 Uric acid Lab STAT 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 Expected: 10/12/2022 (Approximate), Expires: 11/11/2022 Hepatitis B Core Antibody, Total Lab STAT 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 Expected: 10/12/2022 (Approximate), Expires: 11/11/2022 Hepatitis B Surface Antibody Lab STAT 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 Expected: 10/12/2022 (Approximate), Expires: 11/11/2022 Hepatitis B Surface Antigen Lab STAT 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 Expected: 10/12/2022 (Approximate), Expires: 11/11/2022 documented as of this encounter Procedures Procedure Name Priority Date/Time Associated Diagnosis Comments CBC (WITH DIFF) Routine 10/11/2022 COMPREHENSIVE METABOLIC PANEL (NON-FASTING) Routine 10/11/2022 CBC (WITH DIFF) Routine 09/30/2022 COMPREHENSIVE METABOLIC PANEL (NON-FASTING) Routine 09/30/2022 PSA (ULTRASENSITIVE) Routine 09/21/2022 documented in this encounter Results * Uric acid (03/06/2023 7:45 AM EST) Uric Acid 5.5 3.5 - 8.5 mg/dL [facility] Blood 03/06/2023 7:45 AM EST 03/06/2023 8:00 AM EST Narrative Resulting Agency Comment Spec In Lab Adrianne Ramon MD CHEMISTRY ORDERA BLES [facility] [place] [address] * Lactate Dehydrogenase (03/06/2023 7:45 AM EST) LDH 198 110 - 220 unit/L [facility] Blood 03/06/2023 7:45 AM EST 03/06/2023 8:00 AM EST Narrative Resulting Agency Comment Spec In Lab Adrianne Ramon MD CHEMISTRY ORDERA BLES Performing Organization Address [facility] Co de Phone Number [facility] [place] [address] * (ABNORMAL) Immunoglobulins, Quantitative (03/06/2023 7:45 AM EST) IgG 572(L) 700 - 1,600 mg/dL [facility] Comment: Pediatric Reference Intervals obtained from the Caliper Reference Interval project. http://www.Leosphere.ca/caliperproject/index.html IgA 118 70 - 400 mg/dL [facility] IgM 123 40 - 230 mg/dL [facility] Blood 03/06/2023 7:45 AM EST 03/06/2023 8:00 AM EST Narrative Resulting Agency Comment Spec In Lab Adrianne Ramon MD CHEMISTRY ORDERA BLES Performing Organization Address [facility] Co de Phone Number [facility] [place] [address] * (ABNORMAL) Comprehensive metabolic panel (non-fasting) (03/06/2023 7:45 AM EST) Glucose Lvl 133 65 - 199 mg/dL [facility] Comment:Diabetes: >=200 mg/d L plus symptoms BUN 12 10 - 20 mg/dL [facility] Creatinine 0.94 0.80 - 1.50 mg/dL [facility] Sodium 143 135 - 145 mmol/L [facility] Potassium 3.7 3.5 - 5.0 mmol/L [facility] Comment: Please note: ??Patients with WBC >100,000 may have falsely elevated Potassium levels. ??For accurate Potassium quantification in these patients send serum separator tube (gold top) for subsequent determinations. ??Contact the Clinical Chemistry Laboratory if there are any questions. Chloride 108(H) 98 - 107 mmol/L [facility] CO2 23 22 - 31 mmol/L [facility] Anion Gap 12 5 - 15 mmol/L [facility] Calcium 9.6 8.5 - 10.5 mg/dL [facility] Total Protein 6.4 6.1 - 8.0 g/dL [facility] Albumin 4.1 3.2 - 5.2 g/dL [facility] AST 22 0 - 39 unit/L [facility] ALT 18 0 - 55 unit/L [facility] Alk Phos 103 40 - 130 unit/L [facility] Total Bilirubin 0.2 0.2 - 1.3 mg/dL [facility] Estimated GFR 85 >=60 mL/min/1. 73 m?? [facility] Comment: This patient's estimated GFR [...] In Lab Adrianne Ramon MD CHEMISTRY ORDERA DANICAS [facility] [place] [address] * HIV Screen, 4th Generation ([facility]/CGP/APD/NLH) (10/17/2022 11:45 AM EDT) HIV-1/2 Ab and Ag Negative Negative [facility] Comment: This 4th Generation HIV [...] HIV Comment Low Risk of HIV Infection [facility] Blood 10/17/2022 11:4 5 AM EDT 10/17/2022 12:08 PM EDT Narrative Resulting Agency Comment Spec In Lab Adrianne Ramon MD IMMUNOLOGY ORDER DUONG [facility] [place] [address] * Hepatitis C Antibody (10/17/2022 11:45 AM EDT) Hepatitis C Ab Negative Negative [facility] Blood 10/17/2022 11:4 5 AM EDT 10/17/2022 12:08 PM EDT Narrative Resulting Agency Comment Spec In Lab Adrianne Ramon MD IMMUNOLOGY ORDER DUONG Performing Organization Address City/[facility] Co de Phone Number [facility] [place] [address] * IR Mediport Placement (10/17/2022 10:44 AM EDT) Anatomical Region Laterality Modality X-Ray Angiograph y Narrative 10/17/2022 11:06 AM EDT Interventional Radiology Procedure Note Procedure: Subcutaneous venous port implant Indication: Diffuse large B-cell lymphoma, durable shelter central venous access for chemotherapy Procedure summary: [...] Ramon MD IMG IR ORDERABLE S * NM PET CT Standard Plus Extremities [...] who have questions please contact the health youth career specialist that requested your imaging first. ? Narrative 10/12/2022 3:23 PM EDT EXAMINATION: NM PET CT STANDARD PLUS EXTREMITIES AND HEAD CLINICAL HISTORY: Non-Hodgkin lymphoma, staging new large B cell lymphoma - involving oropharynx/ cervical. ??staging. TECHNIQUE: Procedure: Following IV injection of 40-dzaltw-9-deoxyglucose (FDG) a standard uptake of approximately 60 [...] staging. TECHNIQUE: Procedure: Following IV injection of 32-dllswj-7-deoxyglucose(FDG) a standard uptake of approximately 60 minutes, [...] patients who have questions please contactthe health youth career specialist that requested your imaging first. Adrianne Ramon MD IMG PET ORDERABL ES * Comprehensive metabolic panel (non-fasting) (10/11/2022) [facility] BUN 20 Creatinine 1.2 Sodium 134 Potassium 4.0 Total Bilirubin 0.3 AST 15 ALT 49 LDH 283 Iron 62 Iron Saturation 29 Ferritin 139 TIBC 214 Blood 10/11/2022 Historical Provider CHEMISTRY ORDERAB LES * CBC (with Diff) (10/11/2022) [facility] WBC 11.95 Hemoglobin 10.8 Hematocrit 32.1 Platelets 290 Neutr Abs (ANC) 9.67 Blood 10/11/2022 Historical Provider HEMATOLOGY ORDERA BLES * Comprehensive metabolic panel (non-fasting) (09/30/2022) Glucose Lvl 129 BUN 24 Creatinine 1.3 Sodium 132 Potassium 3.4 Chloride 96 CO2 23 Calcium 9.0 Total Protein 7.3 Albumin 3.6 Total Bilirubin 0.3 Alk Phos 115 AST 19 ALT 42 Blood 09/30/2022 Historical Provider CHEMISTRY ORDERAB LES * CBC (with Diff) (09/30/2022) Pathologist [facility] WBC 13.34 Hemoglobin 13.0 Hematocrit 37.4 Platelets 320 Neutr Abs (ANC) 9.02 Blood 09/30/2022 Historical Provider HEMATOLOGY ORDERA BLES * PSA (Ultrasensitive) (09/21/2022) Pathologist [facility] PSA Total (Ultrasensitive ) 0.04 Blood 09/21/2022 Historical Provider CHEMISTRY ORDERAB LES documented in [...] regions documented in this encounter Care Teams Tile Designer Relationship Specialty Start Date End Date Frederick Meade MD [address] [place] [address] [address] [facility] [address] [place] [address] PCP - General Family Medicine 11/29/17 documented as of this encounter
--- OUTSIDE RECORDS SUMMARY | 2023-09-17 01:36 | XMS_ITS | Encounter Summary ---
[place] [address] Care Team Providers Care Dining Room Supervisor Name Role Phone Bobby Headley MD Primary Care Provider [phone] Encounter Details Date Type Department Care Team (Late st Contact Info) Description 02/01/2015 Notes Only Radiation Oncology at [address] [phone] Nitin Stauffer MD [address] [place] [address] DR RADIATION ONCOLOGY [place], [place] [id number] Social History Tobacco Use Types Packs/Day Years [...] as of this encounter Progress Notes * Nitin Stauffer MD - 02/01/2015 1:29 PM EST RADIATION COMPLETION OF THERAPY NOTE PROVIDER: Nitin Stauffer MD IDENTIFICATION: Cheo Freire is a 64 y.o. male diagnosed with intermediate risk prostate cancer(4+3, PSA 5.4, cT1c) who recently completed short term ADT (6 months) and definitive radiotherapy to his prostate and proximal SV at the [facility] in [place], [place]. Details of his radiation treatment course are as below. RT information: Date of RT Start: 11/25/14 Date of RT Completion: 01/26/15 Dose and targets: 70.2 Gy to the proximal SV and prostate, 79.2Gy to the prostate Field orientation: Dynamic arc VMAT Forest Ranger Technician Target Coverage (70Gy isodose line indicated): SPECIAL TECHNICAL CONSIDERATIONS: The patient was simulated on a CT simulator. Customized castro were designed to encompass the target volume and identify organs at risk and with the intent of minimizing normal tissue toxicity. TREATMENT TOLERANCE: With regard to side effects noted during radiotherapy, the patient tolerated treatment with expected toxicities for this treatment area and dose, including mild radiation proctitis and increased nocturia which were managed with dietary modification and stool softeners. TREATMENT RESPONSE: The patient's response to treatment was undetermined, as he was largely asymptomatic at the time ofpresentation. FOLLOWUP: Follow-up visit with Radiation Oncology will be arranged in 4-6 weeks for clinical symptom check; he has received instructions to call this office or seek the help of the local emergency room if any further problems should arise prior to followup. documented in this encounter Plan of Treatment Upcoming Encounters Date Type Department Care Team (Late st Contact Info) Description 09/19/2023 8:00 AM EDT Infusion Hematology Oncology at [address] [phone] 09/21/2023 9:30 AM EDT Office Visit [place] [address] Micha Givens Jr., MD [facility] DR HEMATOLOGY [place] [address] 09/21/2023 10:30 AM EDT Clinical Support [place]ology [place] [address] Danii Her RN 09/26/2023 8:30 AM EDT Infusion Hematology Oncology at [address] [phone] 10/03/2023 9:00 AM EDT Office Visit Hematology/Oncology at [address] [phone] Adrianne Ramon MD [facility] DR HEMATOLOG[place] [address] Yael Merlos APRN [facility] [place] [address] 10/03/2023 9:30 AM EDT Infusion Hematology Oncology at [address] [phone] 10/10/2023 8:30 AM EDT Infusion Hematology Oncology at [address] [phone] documented as of this encounter Visit Diagnoses Not on filedocumented in this encounter Care Teams Dining Room Supervisor Relationship Specialty Start Date End Date Bobby Headley MD [address] [place] [id number] PCP - General 01/29/14 11/28/17 documented as of this encounter
--- OUTSIDE RECORDS SUMMARY | 2023-09-17 01:36 | XMS_ITS | Encounter Summary ---
Author Organization [facility] [place] [address] Care Team Providers Care Director Of Clinical Services Name Role Phone Frederick Meade MD Primary Care Provider [phone] Reason for Referral * Consultation (Urgent) - Closed Specialty Diagnoses / Procedures Referred By Paul bowen Referred To Contact Cardiology Diagnoses 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 CARD-ONC Pt w/o cardiac hx. New lymphoma. Needs anthracycline. Echo w/ EF 49% & mild global hypokinesis. Please eval for ongoing anthracycline safety. Adrianne Mera MD [facility] DR HEMATOLOGY [place] [address] Chalo Mcintyre MD [facility] [address] Referral ID Status Reason Start Date Expiration Date V isits Requested Visits Authorized [id number] Closed Consult, Test & Treat 10/12/2022 10/12/2023 1 1 * Diagnostic Test (Routine) - Closed Specialty Diagnoses / Procedures Referred By Paul bowen Referred To Contact Cardiology Diagnoses 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 Procedures Echocardiogram Transthoracic Adrianne Mera MD [facility] HEMATOLOGY [place] [address] [facility] [place] [address] Referral ID Status Reason Start Date Expiration Date V isits Requested Visits Authorized [id number] Closed Specialty Service Requested 10/12/2022 10/12/2023 1 1 Reason for Visit * Reason Comments Follow-up Encounter Details Date Type Department Care Team (Late st Contact Info) Description 10/12/2022 1:30 PM EDT Office Visit Hematology [place] [address] Adrianne Mera MD [facility] DR HEMATOLOGY [place] [address] Adrianne Aquino APRN [facility] HEMATOLOGY [place] [address] Diffuse large B-cell lymphoma of [...] Sign Reading Time Taken Comments Blood Pressure 147/69 10/12/2022 1:29 PM EDT Pulse 70 10/12/2022 1:29 PM EDT Temperature 36.2 ??C (97.2 ??F) 10/12/2022 1:29 PM ED T Respiratory Rate 20 10/12/2022 1:29 PM EDT Oxygen Saturation 95% 10/12/2022 1:29 PM EDT Inhaled Oxygen Concentration - - Weight 95.9 kg (211 lb 6.7 oz) 10/12/2022 1:29 P M EDT Height 168.6 cm (5' 6.38) 10/12/2022 1:29 PM ED T Body Mass Index 33.74 10/12/2022 1:29 PM EDT documented in this encounter Progress Notes * Adrianne Mera MD - 10/12/2022 1:30 PM [place] [address] NEW PATIENT EVALUATION Patient Active Problem List Diagnosis 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 Anemia, iron deficiency Gout Malignant neoplasm of prostate HISTORY OF PRESENT ILLNESS: Patient prefers to be called: Cheo Support person(s) : Claritza son Cheo It was my pleasure to meet Cheo Tom Mouna today. Cheo Freire is a 72 y.o. year old male being seen for evaluation of of newly diagnosed B cell lymphoma. he is referred in consultaion from Dr Lg Ramírez ENT. 4 week h/o of sinus swelling and then cervial LN and could not breath. ~2 weeks ago [facility] to [facility]. No beds so sent to [facility] for [address] [...] - unclear cause. - last COLO at [facility] was 01/17/2012. Cheo returns today with his Claritza, and his son Cheo after echocardiogram and PET scan this morning. He continues to feel well. ONCOLOGY HISTORY: Intermediate risk prostate cancer (4+3, [...] Outpatient Medications Marked as Taking for the 10/12/22 encounter (Office Visit) with Adrianne Mera MD Medication Sig Dispense Refill amLODIPine (Norvasc) [...] only 1 biologic. Son Cheo Freire. Enjoys [place], [employer], race car, cards. [place]. 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 Not a . ETOH: 1-3 beers per week Smoking: Quit 1985. Approximately 74-[id number]-[id number] history Vaping or electronic cigarettes: denies Chewing tobacco: denies Marijuana or other recreational drug use: none HIPPA Contact Permission: Claritza and Cheo. Also OK to talk to Claritzas adult children. OK to leave message with medical information on home or cell phone: home phone PHYSICAL EXAM (not repeated today) BP 147/69 (Patient Position: Sitting) Pulse 70 Temp 36.2 ??C (97.2 ??F) (Temporal) Resp 20 Ht 168.6 cm (5' 6.38) Wt 95.9 kg (211 lb 6.7 oz) SpO2 95% BMI 33.74 kg/m?? Body surface area is 2.12 meters squared. GENERAL: Cheo Freire appears well [...] Iron Saturation 29 Ferritin 139 TIBC 214 Surgical Pathology Report Result Value Ref Range Surgical Pathology Report [id number] Location: [facility] The signing pathologist has (i) examined the relevant preparation(s) for the specimen(s) and (ii) rendered or confirmed the diagnosis(es). . Surgical Pathology DIAGNOSIS CONSULTATION CASE A. TONGUE, LEFT BASE (BIOPSY); [OSR# [id number], COLLECTED 10/05/2022, 12 SLIDES]: 1. Diffuse large B-cell lymphoma, activated B-cell subtype (ABC-DLBCL) (see comment) 2. Ki67 proliferation estimated at >95%, lymphoma coexpresses BCL2 and CMYC Electronically signed by: Ole Bowen MD Verified: 10/12/2022 11:37 Hematopathologist Performed at: -[facility] Dept. of Pathology, [place] [address] Yarn Spooler: Katherine Lopez MD, FCAP, [place] Certificate: [id number] DISCUSSION Per report from the referring institution, ...Flow cytometry ([id number]) supports this interpretation. FISH studies were reportedly sent to [facility] to assess for MYC and BCL2 gene rearrangement. Results are not available at this time; please follow-up with these studies to exclude a high-grade B-cell lymphoma with MYC and BCL2 rearrangements. ADDITIONAL STUDIES MICROSCOPIC DESCRIPTION The histologic preparation contains irregularly shaped fragments of tissue that are densely and diffusely infiltrated by an abnormal lymphoproliferation. The proliferation has a diffuse growth pattern and is compositionally monotonous. The cells are predominantly large with ovoid to irregular nuclear contours, open/vesicular chromatin, 1-3 nucleoli, and scant amounts of cytoplasm. Scattered apoptotic bodies and mitotic figures are seen, and fewer small mature lymphocytes and macrophages are seen in the background. Few pieces of tissue contain otherwise unremarkable overlying squamous mucosa. IMMUNOHISTOCHEMISTRY STUDIES Block: A1 Fixative: Formalin ANTIBODY: RESULT/COMMENT CD3 (-), scatter ed background small T-cells highlighted CD10 (-), some stromal elements stain CD20 (+), strong uniform lymphoma staining Cyclin D1 (-), few stromal basal epithelial cells stain BCL2 (+), strong uniform lymphoma staining BCL6 (+), moderate staining in ~90% of lymphoma MUM1 (+), moderate-strong staining in >90% of lymphoma MYC (+), moderate staining in ~70% of lymphoma PAX5 (+), uniform nuclear staining in lymphoma Ki67 (+), proliferation estimated at ~95% EBV SAPPHIRE (-) Note: The immunoperoxidase stains reported above were developed and their performance characteristics determined by the referring facility, but included for evaluation at [facility]. Appropriate controls are included for each case. . SPECIMEN(S) SUBMITTED CONSULTATION CASE A - 12 slide(s) labeled [id number], collection date 10/05/2022. [id number] CARBON COPY: [facility] Surgical Pathology Department [facility], [facility], [address]nd Floor [address] [place] [address] CLINICAL INFORMATION A 72 year old man. Per provided report, there is a clinical history of Massive LAD, history of prostate cancer; clinical diagnosis code: R59.1. SPECIMEN PROCESSING [facility] ([facility]) pathology slide(s) are reviewed. Refer to Diagnosis and Specimen Submitted for specific case information. For the full text of the [facility] report(s) please refer to the Chart Review Media tab in the electronic health record (eDH). Echocardiogram Transthoracic Result Value Ref Range EF 49 POCT Glucose Result Value Ref Range POC Glucose 113 65 - 199 mg/dL PATHOLOGY: Final Diagnosis A. Tongue base, left: -Large B-cell lymphoma, incompletely classified. See comment. Diagnosis Comment The findings are those of a large B-cell lymphoma that exhibits a non-germinal center immunophenotype and expresses Myc and BCL-2 protein (Double Expressor.) Flow cytometry ([id number]) supports this interpretation. The differential classification of this lesion is diffuse large B-cell lymphoma versus high grade B-cell lymphoma with MYC and BCL-2 rearrangement. Material has been sent to [facility] to assess the status of these genes by FISH and an addendum report with a definitive classification will be issued upon receipt of the result. CD3 (SP7, [employer] Scientific) Background T-cells CD20 (L26, [place]) diffusely positive in Neoplastic B-cells PAX-5 (1EW, Leica) diffusely positive in Neoplastic B-cells CD10 (SP67, [place]) Negative BCL-6 (G/191E/A8, [place]) Positive MUM-1 (MUM1p, Dako) Positive Myc (Y69, [employer]cam) Positive BCL-2 Oncoprotein (124, [place]) Positive Ki67 (MIB-1) (K2, Leica) Greater than 95% of cells in cycle Cyclin D1(SP4-R, [place]) Negative SAPPHIRE JOSE (HOH2983-J, Leica) Negative. DIAGNOSTICS: 10/11/22 ECHO EF = 49% Interpretation Summary [...] comparison study is available. RADIOLOGY STUDIES REVIEWED: 8/23/23 PET Reviewed images with patient and family. [...] undergo investigation with ultrasound. CT CAP at [facility], report and images have been requested. [...] and his first cycle of R-CHOP chemotherapy. Today I reviewed the basics of R-CHOP chemotherapy. It is given 1 day every 3 weeks for total of 6 treatments. We will have to see how he does to see if we can give anthracycline with each treatment.Alternatively we could give etoposide as a substitute. He will need allopurinol 300 mg daily with the start of chemotherapy x2 weeks, then he will return to his gout dose of allopurinol at 100 mg/day. I would recommend Claritin for 1 week, following Neulasta support. I briefly reviewed side effects today which include drop in blood counts, risk for infection, nausea and vomiting, cardiac toxicity, neuropathy, constipation, hair loss, fatigue. These will be discussed in more detail during his PTI chemotherapy teaching session. Cardiac -Cheo has no cardiac history. However his echocardiogram returned with ejection fraction 49% with mild global hypokinesis without wall motion abnormalities. Given that we know anthracyclineis critical to curing diffuse large B-cell lymphoma and earlier anthracycline is better than later during the treatment course, I would recommend starting cycle #1 with Adriamycin, and following ejection fraction closely. I would also recommend formal cardiac consultation with our cardiomyopathy team, and/or Dr. Chalo mcintyre. Prednisone -100 mg p.o. daily on 10/14 and 10/15 only as a bridge to definitive chemotherapy. Furtherprednisone prescriptions will be given by [facility], during PTI chemotherapy teaching Cardiac - EF 49%. No stress test in past. Suspected MEHNAZ - Hgb drop 3gm in last 2 weeks. Taking oral iron 2 tabs per day. 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 No COLO in last 10 years. Will add iron studies to labs today and check PET tomorrow.Will follow. Labs seem most consistent with anemia of chronic disease. Prostate Cancer -DAVE at this time Plan: Follow up on FISH for MYC, BCL-2 and BLC-6 -UV sent these tests out to [place] Prednisone -100 mg on 10/14 and 10/15. Then restart with chemotherapy Mediport -scheduled for Sunday PTI -on 10/18 at 8 AM with Yale Merlos at [facility] Discuss cardiac function, and role of anthracycline with ejection fraction of 49% with Dr. Matthew Mcintyre - message sent today Plan allopurinol X 14 d w/ C#1 Support with Onpro Claritin x1 week status post OnPro ID - acv prophy - add antibiotics only if neutropenic. Midcycle check with Fozia Richardson on 10/25. I appreciate her help. ECHO following C#1 at [facility] approx 10/20/22 Urgent referral to cardiology. Matthew Mcintyre requested. [facility] or [place] I discussed all of the above with the patient and all of his questions were answered. Support and counseling as appropriate. This note was written or modified using [employer] voice recognition software. The final note was screened for linen keeper errors. Please excuse any remaining errors. Addendum staff message from Matthew Mcintyre, Cardiology: Adrianne; Thanks for the message; will see if we can see him up in [place]. On review of his CT, he has [...] AM EDT Infusion Hematology Oncology at [address] [phone] 09/21/2023 9:30 AM EDT Office Visit Hematology [place] [address] Micha Givens Jr., MD [facility] HEMATOLOGY [place] [address] 09/21/2023 10:30 AM EDT Clinical Support Hematology [place] [address] Danii Her RN 09/26/2023 8:30 AM EDT Infusion Hematology Oncology at [address] [phone] 10/03/2023 9:00 AM EDT Office Visit Hematology/Oncology at [address] [phone] Adrianne Mera MD [facility] DR HEMATOLOGY [place] [address] Yael Merlos APRN [facility] HEMATOLOGY [place] [address] 10/03/2023 9:30 AM EDT Infusion Hematology Oncology at [address] [phone] 10/10/2023 8:30 AM EDT Infusion Hematology Oncology at [address] [phone] Scheduled Referrals Name Type Priority Associated Diagnoses Order Schedule Referral to Cardiology Outpatient Referral Urgent 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 Ordered: 10/12/2022 documented as of this encounter Results * ECHO LMTD W/O CONTRAST W LMTD SPEC DOPP COLOR DOPP (11/06/2022 11:44 AM EDT) Anatomical Region Laterality Modality Cardiac Other 11/06/2022 11:1 1 AM EDT Narrative 11/06/2022 11:58 AM EDT ? Echocardiogram Report Name: CHEO FREIRE ? Study Date: 11/06/2022 11:11 AMBP: 154/72 mmHg ? [facility] 1950 [facility]: 169 cm ? Account: [id number] Age: 72 yrs ? Weight: 93 kg Gender: Male ?BSA: 2.0 m2 Ordering Physician: ADRIANNE MERA Referring Physician: ADRIANNE MERA Performed By: SHAHANA Fernando Reason For Study: Lymphoma Exam Location: [facility]. Interpretation Summary LV systolic function appears to be low-normal. LV ejection fraction appears to be 52%. Global longitudinal strain is measured at -16.6 %. (GE). There are no segmental wall motion abnormalities. Normal right ventricle. No significant valvular abnormalities. Trivial pericardial effusion. On direct comparison to prior echo dated 10/12/2022, the LV function has slightly improved. Procedure Limited - [address]. Left ventricular strain. Satisfactory quality. There is [...] MD - 11/06/2022 Echocardiogram Report Name: CHEO FREIRE Study Date: 311:11 AMBP: 154/72 mmHg Patient Location: : 1950 Height: 169 cm Account: [id number] Age: 72 yrs Weight: 93 kg Gender: Male BSA: 2.0 m2 Ordering Physician: ADRIANNE MERA Referring Physician: ADRIANNE MERA Performed By: SHAHANA Fernando Reason For Study: Lymphoma Exam Location: [facility]. Interpretation Summary LV systolic function appears to be low-normal. LV ejection fractionappears to be 52%. Global longitudinal strain is measured at -16.6 %. (GE). There areno segmental wall motion abnormalities. Normal right ventricle. No significant valvular abnormalities. Trivial pericardial effusion. On direct comparison to prior echo dated 10/12/2022, the LV function hasslightly improved. Procedure Limited - [address]. Left ventricular strain. Satisfactory quality. There isnormal [...] regions documented in this encounter Care Teams Director Of Clinical Services Relationship Specialty Start Date End Date Frederick Meade MD [address] [place] [address] [address] [place] [address] PCP - General Family Medicine 11/29/17 documented as of this encounter
--- OUTSIDE RECORDS SUMMARY | 2023-09-17 01:36 | XMS_ITS | Encounter Summary ---
Author Organization [facility] [place] [address] Care Team Providers Care Car Unloader Helper Name Role Phone Frederick Meade MD Primary Care Provider [phone] Encounter Details Date Type Department Care Team (Latest Contact Info) Description 10/11/2022 3:11 PM EDT - 10/11/2022 11:59 PM EDT Hospital [place] [phone] Discharge Disposition: Home Social History Tobacco Use [...] 8:00 AM EDT Infusion Hematology Oncology at [address] [phone] 09/21/2023 9:30 AM EDT Office Visit Hematology [place] [address] Micha Givens Jr., MD [facility] DR HEMATOLOGY [place] [address] 09/21/2023 10:30 AM EDT Clinical Support Hematology [place] [address] Danii Her RN 09/26/2023 8:30 AM EDT Infusion Hematology Oncology at [address] [phone] 10/03/2023 9:00 AM EDT Office Visit Hematology/Oncology at [address] [phone] Adrianne Ramon MD [facility] DR HEMATOLOGY [place] [address] Yael Merlos APRN [facility] HEMATOLOGY [place] [address] 10/03/2023 9:30 AM EDT Infusion Hematology Oncology at [address] [phone] 10/10/2023 8:30 AM EDT Infusion Hematology Oncology at [address] [phone] documented as of this encounter Procedures Procedure Name Priority Date/Time Associated Diagnosis Comments SURGICAL PATHOLOGY REPORT Routine 10/11/2022 3:13 PM EDT documented in this encounter Results * Surgical Pathology Report (10/11/2022 3:13 PM EDT) FINAL DIAGNOSIS (AP) [id number] ? Location: OPW The signing pathologist has (i) examined the relevant preparation(s) for the specimen(s) and (ii) rendered or confirmed the diagnosis(es). . ?Surgical Pathology DIAGNOSIS CONSULTATION CASE ?? A. TONGUE, LEFT BASE (BIOPSY); [OSR# [id number], COLLECTED 10/05/2022, 12 SLIDES]: ?? 1. Diffuse large B-cell lymphoma, activated B-cell subtype (ABC-DLBCL) (see ?comment) ?? 2. Ki67 proliferation estimated at >95%, lymphoma coexpresses BCL2 and CMYC Electronically signed by: ?Ole Bowen MD Verified: ??10/12/2022 11:37 ??Hematopathologist Performed at: ??-[facility] Dept. of Pathology, [place] [address] Midwife: Katherine Lopez MD, FCAP, ??CLIA Certificate: [id number] DISCUSSION Per report from the referring institution, ...Flow cytometry ([id number]) supports this interpretation. FISH studies were reportedly sent to [facility] to assess for MYC and BCL2 gene rearrangement. Results are not available at this time; please follow-up with these studies to exclude a high-grade B-cell lymphoma with MYC and BCL2 rearrangements. ADDITIONAL STUDIES MICROSCOPIC DESCRIPTION The histologic preparation contains irregularly shaped fragments of tissue that are densely and diffusely infiltrated by an abnormal lymphoproliferation . The proliferation has a diffuse growth pattern and is compositionally monotonous. The cells are predominantly large with ovoid to irregular nuclear contours, open/vesicular chromatin, 1-3 nucleoli, and scant amounts of cytoplasm. Scattered apoptotic bodies and mitotic figures are seen, and fewer small mature lymphocytes and macrophages are seen in the background. Few pieces of tissue contain otherwise unremarkable overlying squamous mucosa. IMMUNOHISTOCHEMISTR Y STUDIES Block: ? A1 Fixative: ??Formalin ANTIBODY: ??RESULT/COMMENT CD3 ?(-), scattered background small T-cells highlighted CD10 ? (-), some stromal elements stain CD20 ? (+), strong uniform lymphoma staining Cyclin D1 ??(-), few stromal basal epithelial cells stain BCL2 ? (+), strong uniform lymphoma staining BCL6 ? (+), moderate staining in ~90% of lymphoma MUM1 ? (+), moderate-strong staining in >90% of lymphoma MYC ?(+), moderate staining in ~70% of lymphoma PAX5 ? (+), uniform nuclear staining in lymphoma Ki67 ? (+), proliferation estimated at ~95% EBV SAPPHIRE ?? (-) Note: The immunoperoxidase stains reported above were developed and their performance characteristics determined by the referring facility, but included for evaluation at [facility]. Appropriate controls are included for each case. . SPECIMEN(S) SUBMITTED CONSULTATION CASE A - 12 slide(s) labeled [id number], collection date 10/05/2022. [id number] CARBON COPY: [facility] Surgical Pathology Department [facility], [facility], 2nd Floor [address] [place], [place] ??[address] CLINICAL INFORMATION A 72 year old man. [...] tab in the electronic health record (eDH). 10/12/2022 11:37 AM EDT [facility] 10/11/2022 3:13 PM EDT Adrianne Ramon MD PATHOLOGY/CYTOLO GY ORDERABLES [facility] [place] [address] documented in this encounter Visit Diagnoses Not on filedocumented in this encounter Care Teams Car Unloader Helper Relationship Specialty Start Date End Date Frederick Meade MD [address] [place] [address] PCP - General Family Medicine 11/29/17 documented as of this encounter
--- OUTSIDE RECORDS SUMMARY | 2023-09-17 01:36 | XMS_ITS | Encounter Summary ---
[place] [address] Care Team Providers Care College Scouting Coordinator Name Role Phone Frederick Meade MD Primary Care Provider [phone] Encounter Details Date Type Department Care Team (Late Contact Info) Description 09/22/2022 Notes [place] [phone] Karly Jacobs MD [facility] [place] [address] Social History Tobacco Use Types Packs/Day Years [...] AM EDT Infusion Hematology Oncology at [address] [phone] 09/21/2023 9:30 AM EDT Office Visit [place]ematology [place] [phone] Micha Givens Jr., MD [facility] DR HEMATOLOGY [place] [address] 09/21/2023 10:30 AM EDT Clinical Support [place]ematology [place] [address] Danii Her RN 09/26/2023 8:30 AM EDT Infusion Hematology Oncology at [address] [phone] 10/03/2023 9:00 AM EDT Office Visit Hematology/Oncology at [address] [phone] Adrianne Ramon MD [facility] DR HEMATOLOGY [place] [address] Yael Merlos APRN [facility] DR HEMATOLOGY [place] [address] 10/03/2023 9:30 AM EDT Infusion Hematology Oncology at [address] [phone] 10/10/2023 8:30 AM EDT Infusion Hematology Oncology at [address] [phone] documented as of this encounter Visit Diagnoses Not on filedocumented in this encounter Care Teams College Scouting Coordinator Relationship Specialty Start Date End Date Frederick Meade MD [address] [place] [address] [address] [facility] [address] [place] [address] PCP - General Family Medicine 11/29/17 documented as of this encounter
--- OUTSIDE RECORDS SUMMARY | 2023-09-17 01:36 | XMS_ITS | Encounter Summary ---
[place] [address] Care Team Providers Care Jigger Operator Name Role Phone Bobby Headley MD Primary Care Provider [phone] Reason for Visit * Reason Comments Radiation Follow-up prostate cancer Encounter Details Date Type Department Care Team (Late st Contact Info) Description 02/25/2015 1:45 PM EST Office Visit Radiation Oncology at [address] [phone] Anna Carr [address] [place] [address] Malignant neoplasm of prostate Social [...] Sign Reading Time Taken Comments Blood Pressure 128/77 02/25/2015 1:53 PM EST Pulse 66 02/25/2015 1:53 PM EST Temperature 36.5 ??C (97.7 ??F) 02/25/2015 1:53 PM ES T Respiratory Rate 18 02/25/2015 1:53 PM EST Oxygen Saturation 100% 02/25/2015 1:53 PM EST Inhaled Oxygen Concentration - - Weight 90.3 kg (199 lb) 02/25/2015 1:53 PM EST Height - - Body Mass Index 30.26 03/04/2014 3:22 PM EST documented in this encounter Progress Notes * Anna Carr, CORE FITTER - 02/24/2015 4:31 PM EST Images from the original note were not included. Patient ID: Cheo Freire is a 64 y.o. male [...] elevated at 5.4 with only 9% free. Starr with Dr. Vergara July 2014 who offered biopsy which was performed 09/01/14, demonstrating Gleason4 + 3 disease in a single core at the right apex. Forty-five percent of that core did appear to be involved. Perineural invasion was not seen. Pathology had been reviewed here at [facility]. 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 Smoking status: Former Smoker -- 1.00 packs/day Types: Cigarettes ??? Smokeless tobacco: Former User Quit date: 02/19/1986 Comment: started smoking in highschool ??? Alcohol Use: 1.8 oz/week 3 Not specified per week Comment: 3-4 beers weekly ??? [...] record. Adjustment to Illness/Mental Health Issues: Pt Reports he keeps busy with his grandchildren and traveling to their sporting events. He feels he is coping well. Interim History: Mr Freire reports that he is doing well. He is very anxious to know what his PSA is at this time. He recently completed radiation therapy and six months of androgen deprivation. Overall he reports that he is doing well. He reports no urinary problems--no dysuria, no hematuria and no incontinence. His IPSSS score is 7.He indicates that he is very pleased with [...] A1c was 6.5. Review of Systems Constitutional: Negative. Negative for fever, chills, diaphoresis, activity change, fatigue and unexpected weight change. HENT: Negative. Respiratory: Negative. Cardiovascular: Negative. Negative [...] Negative. Psychiatric/Behavioral: Negative. Vitals Office Visit from 02/25/2015 in [facility] Radiation Oncology Weight - Scale 90.266 kg (199 lb) Temp 36.5 ??C (97.7 ??F) Temp Source Oral Heart Rate 66 Heart Rate Source Right Resp 18 BP 128/77 mmHg Patient Position Sitting SpO2 100 % Karnofsky Score 100 Objective: Physical Exam Constitutional: He is [...] content normal. Vitals reviewed. Date PSA testosterone 02/25/2015 < 0.1 Pretreatment PSA 5.4 Assessment [...] from treatment that are concerning or bothersome. Plan: 1. Return to clinic in three months with PSA, testosterone and clinical evaluation 2. We will review patient's survivor care plan at the time of his next visit in June 2015. 3. Patient is to call with any questions or concerns in the interim. documented in this encounter Plan of Treatment Upcoming Encounters Date Type Department Care Team (Late st Contact Info) Description 09/19/2023 8:00 AM EDT Infusion Hematology Oncology at [address] [phone] 09/21/2023 9:30 AM EDT Office Visit Hematology [place] [address] Micha Givens Jr., MD [facility] [place] [address] 09/21/2023 10:30 AM EDT Clinical Support Hematology [place] [address] Danii Her RN 09/26/2023 8:30 AM EDT Infusion Hematology Oncology at [address] [phone] 10/03/2023 9:00 AM EDT Office Visit Hematology/Oncology at [address] [phone] Adrianne Ramon MD [facility] [place] [address] Yael Merlos APRN [facility] [place] [address] 10/03/2023 9:30 AM EDT Infusion Hematology Oncology at [address] [phone] 10/10/2023 8:30 AM EDT Infusion Hematology Oncology at [address] [phone] documented as of this encounter Visit Diagnoses Diagnosis Malignant neoplasm of prostate documented in this encounter Care Teams Jigger Operator Relationship Specialty Start Date End Date Bobby Headley MD [address] [place] [address] PCP - General 01/29/14 11/28/17 documented as of this encounter
--- OUTSIDE RECORDS SUMMARY | 2023-09-17 01:36 | XMS_ITS | Encounter Summary ---
[place] [address] Care Team Providers Care Seed Technician Name Role Phone Frederick Meade MD Primary Care Provider [phone] Encounter Details Date Type Department Care Team (Late st Contact Info) Description 09/21/2022 Notes Only [place] [address] Karly Jacobs MD [facility] [place] [address] Social History Tobacco Use Types Packs/Day Years [...] as of this encounter Progress Notes * Karly Jacobs MD - 09/21/2022 11:33 PM EDT Called by Transfer Center by Dr. Lucero at [facility] on 09/21/22 regarding Cheo Freire. Cheo Freire is a 72 y.o. male with PMH T2DM (diet controlled), HTN (lisinopril), prostate Ca (diagnosed 2014, no treatment), tobacco use history (quit 1984), prior chewing tobacco use history, very occasional alcohol who presented to [facility] with 1 wk throat swelling and facial swelling. Outside n[place] did not report significant odynophagia or dysphagia. No significant throat or neck pain. Noneck stiffness or trismus. The outside provider denies any preceding URI or dental work. The patient noted slight change in phonation, hypernasal speech, in the past 24hrs. He denies any dyspnea or difficulty managing secretions. He is not hoarse. Outside provider contacted their local ENT, Dr. Ramírez, who is apparently in [place], but suggested this may represent angioedema vs evolving infection. Given this recommendation the provider has given the patient solumedrol, pepcid, and a dose of IV Unasyn. Labs are notable for: WBC 12 Outside provider's exam: AVSS NAD There is mild fullness/swelling of his RIGHT tongue, which does not appear to involve the other mucosal surfaces in the oral cavity He is edentulous, wears dentures which were removed without concern for underlying infection Managing secretions Not stridorous Voice sounds mildly hypernsaal although this has improved since being in the Emergency room Breathing comfortably on room air Patient has no hoarseness Patient is managing secretions well No trismus Patient's neck is soft to palpation with no notable swelling or lymphadenopathy Imaging CT Neck demonstrates a rim enhancing lesion in the naso/oropharynx which may represent possibly infected node vs abscess ~2.5cm. There are additional large lymph nodes in the retropharynx with associated edema at c3-c5, Enlarged R>L lingual tonsils. There is an additional right thyroid nodule. Assessment/Plan Cheo Freire is a who has clinical and radiographic evidence of nasopharyngeal and retropharyngeal edema and adenopathy with possible fluid collection in the norma/nasophayrnx. Radiographic findings are suspicious for malignancy, including lymphoma. However, relatively acute onset symptoms raise s uspicion for infection, either superimposed or separate. I have relatively lower suspicion for angioedema at this time given radiographic findings. However, it is reassuring that the patient has beenfeeling better since treatment with steroids and antibiotics. Unfortunately, in the event that thisis malignancy, steroids may affect interpretation of tissue biopsy in the coming days. I have reviewed my concerns with the outside provider regarding malignancy vs infection. I agree with continuation of IV Unasyn at this time. I have recommended evaluation by ENT with plan for scope exam to evaluate further. Unfortunately, [facility] had no availability to transfer patient at this time even to ED forevaluation. At the time of our call the outside provider felt the patient needed to be evaluated byENT before discharge home and did not feel he could be safe for outpatient workup. I have recommended either local admission and I will personally reconnect in the AM to try to coordinate transfer ifbed space becomes available for at least ED evaluation vs clinic evaluation if the patient has continued improvement with medical management. Alternatively, the outside provider will reach out to [facility] the interim to see if there is any possibility of transfer to their facility. I have reviewed this assessment with the outside provider. They agreed with plan as outlined above.They will continue to monitor for any respiratory symptoms and will reach out more urgently if theypresent. Karly Jacobs MD, PGY3 09/21/2022 11:33 PM Pager #[phone] documented in this encounter Plan of Treatment Upcoming Encounters Date Type Department Care Team (Late st Contact Info) Description 09/19/2023 8:00 AM EDT Infusion Hematology Oncology at [address] [phone] 09/21/2023 9:30 AM EDT Office Visit Hematology [place] [address] Micha Givens Jr., MD [facility] [place] [address] 09/21/2023 10:30 AM EDT Clinical Support Hematology [place] [address] Danii Her RN 09/26/2023 8:30 AM EDT Infusion Hematology Oncology at [address] [phone] 10/03/2023 9:00 AM EDT Office Visit Hematology/Oncology at [address] [phone] Adrianne Ramon MD [facility] HEMATOLOGY [place] [address] Yael Merlos APRN [facility] HEMATOLOGY [place] [address] 10/03/2023 9:30 AM EDT Infusion Hematology Oncology at [address] [phone] 10/10/2023 8:30 AM EDT Infusion Hematology Oncology at [address] [phone] documented as of this encounter Results * Request For 2nd [...] who have questions please contact the health career coordinator that requested your imaging first. ? Narrative 09/22/2022 3:13 PM EDT EXAMINATION: REQUEST FOR 2ND READ CT NECK CLINICAL HISTORY: Nasopharyngeal fluid collection vs infected node, retropharyngeal adenopathy, BOT fullness, RIGHT thyroid lesion; Sending Institution [facility]; Date of exam 09/21/2022; I believe a [...] BOT fullness, RIGHT thyroid lesion; Sending Institution [facility]; Date of exam 09/21/2022; I believe a [...] patients who have questions please contactthe health career coordinator that requested your imaging first. Thierry Ruiz MD IMG OUTSIDE [facility] TATION ORDERABLES documented in this encounter Visit Diagnoses Diagnosis Nasopharyngeal mass Unspecified disease of pharynx Nasopharyngeal mass Unspecified disease of pharynx documented in this encounter Care Teams Seed Technician Relationship Specialty Start Date End Date Frederick Meade MD [address] [facility] [address] [place] [address] PCP - General Family Medicine 11/29/17 documented as of this encounter
--- OUTSIDE RECORDS SUMMARY | 2023-09-17 01:36 | XMS_ITS | Encounter Summary ---
[place] [address] Care Team Providers Care Drop Forger Helper Name Role Phone Frederick Meade MD Primary Care Provider [phone] Encounter Details Date Type Department Care Team (Late st Contact Info) Description 03/17/2019 10:00 AM EST Office Visit Radiation Oncology at [address] [phone] Nitin Stauffer MD [address] [place] [address] DR RADIATION ONCOLOGY [place], [place] [id number] Malignant neoplasm of prostate Social History Tobacco [...] Sign Reading Time Taken Comments Blood Pressure 155/77 03/17/2019 10:00 AM EST Pulse 63 03/17/2019 10:00 AM EST Temperature 36.7 ??C (98.1 ??F) 03/17/2019 10:[address] Respiratory Rate 16 03/17/2019 10:00 AM EST Oxygen Saturation 100% 03/17/2019 10:00 AM EST Inhaled Oxygen Concentration - - Weight 98.6 kg (217 lb 6.4 oz) 03/17/2019 10:00 AM EST Height - - Body Mass Index 34.05 08/21/2018 8:53 AM EDT documented in this encounter Progress Notes * Nitin Stauffer MD - 03/17/2019 10:00 AM EST Images from the original note were not included. RADIATION ONCOLOGY - Follow Up Visit Note 03/17/19 Nitin Stauffer MD, MS Radiation Oncology [facility] [phone] (paging fur operator) Pager #[phone] Patient ID: Cheo Freire is a 64 y.o. male treated with definitive radiotherapy to the pelvis and prostate for intermediate risk prostate cancer (4+3, PSA 5.4, cT1c). ?? Concurrent Therapy: ST-ADT (6 months) Lupron #1 given 09/29/14 Lupron #2, given 12/22/14 ?? Plan Details: Planned Dose: 70.2 Gy in 39 fractions to the proximal SV and prostate 79.2 Gy in 44 fractions to the prostate RT Treatment Start: 11/25/14 RT Treatment End: 01/26/15 ?? Subjective / Interval History: Gen - Fatigue is better since starting iron supplements. Otherwise no other specific complaints. - Reports nocturia 0-1x / night (slight increase from 0-1/night at baseline). No specific urinary complaints. GI - No blood in stools if soft. He can have occasional bleeding if stools are firm - this however predates RT. MEDICATIONS Medications 03/17/19 1019 Medication Sig Taking? lisinopril-hydrochlorothiazide (PRINZIDE;ZESTORETIC) 20-12.5 mg Tablet daily. Yes ONETOUCH ULTRA BLUE TEST STRIP Strip USE TO TEST DAILY Yes ONE TOUCH DELICA 33 gauge Misc USE TO TEST DAILY Yes ONETOUCH ULTRASOFT LANCETS Misc USE TO TEST DAILY Yes ferrous sulfate 325 mg (65 mg iron) Tablet Take 650 mg by mouth daily. Indications: take two tabs at breakfast Yes allopurinol (ZYLOPRIM) 100 mg Tablet Take 100 mg by mouth daily. Yes aspirin 81 mg Tablet, Chewable Take 81 mg by mouth daily. Yes colchicine (COLCRYS) 0.6 mg Tablet Take 0.6 mg by mouth daily as needed (for Gout flare). Ibuprofen 200 mg Capsule Take by mouth 4 times daily as needed. Reported on 05/24/2016 IMAGING / LABS Date PSA Testosterone (normal range of 240-950) 03/10/2019 < 0.1 267 08/14/2018 < 0.1 248 11/22/2017 < 0.1 207 05/23/2017 < 0.1 196 12/07/2017 < 0.1 183 05/16/2016 < 0.1 167 05/24/2016 < 0.1 ?? 02/22/2016 < 0.1 122 11/22/2015 < 0.1 153 08/30/2015 < 0.1 171 05/11/2015 < 0.1 < 10 02/25/2015 < 0.1 ?? Pretreatment PSA 5.4 ?? EXAM: BP 155/77 Pulse 63 Temp 36.7 ??C (98.1 ??F) Resp 16 Wt 98.6 kg (217 lb 6.4 oz) SpO2 100% BMI 34.05 kg/m?? Constitutional: he appears well-developed and well-nourished. No distress. MARI: deferred (PSA undetectable) Performance Status: KPS Score ECOG Grade Definition X 90-100 0 Fully active, able to carry on all pre-disease performance without restriction 70-80 1 Restricted in physically strenuous activity but ambulatory and able to carry out work of a light or sedentary nature, e.g., light house work, office work 50-60 2 Ambulatory and capable of all selfcare but unable to carry out any work activities; up and about more than 50% of waking hours 30-40 3 Capable of only limited selfcare; confined to bed or chair more than 50% of waking hours 10-20 4 Completely disabled; cannot carry on any selfcare; totally confined to bed or chair IMPRESSION/PLAN shelter effects from radiotherapy: Biochemically and clinically DAVE. No significant director long term care adverse effects from RT/ADT. Followup: Given persistently low PSA, we discussed yearly PSA with his PCP. It is Cheo' preference to follow PSA with Dr Meade from here on out. He understands to call/contact us with any questions or concerns that may arise. CC: Dr Meade (PCP) Dr Vergara (Referring) Time Attestation: At least 15 minutes of this 25 minute visit was spent with the patient [id number] reviewing his interval medical history and answering questions related to his prostate cancer. documented in this encounter Plan of Treatment Upcoming Encounters Date Type Department Care Team (Late st Contact Info) Description 09/19/2023 8:00 AM EDT Infusion Hematology Oncology at [address] [phone] 09/21/2023 9:30 AM EDT Office Visit [place]ematology [place] [address] Micha Givens Jr., MD [facility] DR [place] [address] 09/21/2023 10:30 AM EDT Clinical Support [place]ematology [place] [address] Danii Her RN 09/26/2023 8:30 AM EDT Infusion Hematology Oncology at [address] [phone] 10/03/2023 9:00 AM EDT Office Visit Hematology/Oncology at [address] [phone] Adrianne Ramon MD [facility] DR [place] [address] Yael Merlos APRN [facility] DR [place] [address] 10/03/2023 9:30 AM EDT Infusion Hematology Oncology at [address] [phone] 10/10/2023 8:30 AM EDT Infusion Hematology Oncology at [address] [phone] documented as of this encounter Visit Diagnoses Diagnosis Malignant neoplasm of prostate documented in this encounter Care Teams Drop Forger Helper Relationship Specialty Start Date End Date Meade, Frederick J, MD [address] [place] [address] PCP - General Family Medicine 11/29/17 documented as of this encounter
--- OUTSIDE RECORDS SUMMARY | 2023-09-17 01:36 | XMS_ITS | Encounter Summary ---
[place] [address] Care Team Providers Care Yardage Control Clerk Name Role Phone Frederick Meade MD Primary Care Provider [phone] Encounter Details Date Type Department Care Team (Late st Contact Info) Description 10/11/2022 Notes [place] [address] James Champion, [facility] [place] [address] Social History Tobacco Use Types Packs/Day Years [...] as of this encounter H&P Notes * James Champion, DO - 10/11/2022 1:12 PM EDT Images [...] access for chemotherapy. IR History: None at [facility]. Antiplatelets: Aspirin 81 mg daily. Anticoagulants: None. 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 Tobacco Use Smoking status: Former Packs/day: [...] 8:00 AM EDT Infusion Hematology Oncology at [address] [phone] 09/21/2023 9:30 AM EDT Office Visit Hematology [place] [address] Micha Givens Jr., MD [facility] DR HEMATOLOGY [place] [address] 09/21/2023 10:30 AM EDT Clinical Support Hematology [place] [address] Danii Hre, RN 09/26/2023 8:30 AM EDT Infusion Hematology Oncology at [address] [phone] 10/03/2023 9:00 AM EDT Office Visit Hematology/Oncology at [address] [phone] Adrianne Ramon MD [facility] DR HEMATOLOGY [place] [address] Yael Merlos APRN [facility] DR HEMATOLOGY [place] [address] 10/03/2023 9:30 AM EDT Infusion Hematology Oncology at [address] [phone] 10/10/2023 8:30 AM EDT Infusion Hematology Oncology at [address] [phone] documented as of this encounter Visit Diagnoses Not on filedocumented in this encounter Care Teams Yardage Control Clerk Relationship Specialty Start Date End Date Frederick Meade MD [address] [place] [address] [address] [place], [place] [address] PCP - General Family Medicine 11/29/17 documented as of this encounter
--- OUTSIDE RECORDS SUMMARY | 2023-09-17 01:36 | XMS_ITS | Encounter Summary ---
[place] [address] Care Team Providers Care Ware Tester Name Role Phone Frederick Meade MD Primary Care Provider [phone] Encounter Details Date Type Department Care Team (Late st Contact Info) Description 10/10/2022 Telephone Hematology [place] [phone] Castro Jimenez MD [facility] HEMATOLOGY/[place] [address] Social History Tobacco Use Types Packs/Day Years [...] Telephone Encounter - Castro Jimenez MD - 10/10/2022 8:59 AM EDT I had a phone call from Dr. Jain (office number [phone]) at [facility] ENT office to discuss below. 72 yo male is seen by DR. Jain for enlarging neck masses. 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 FISH is pending. Since he was worked up in [facility], the results are in [facility] system. Due to the airway concern, pt was started on prednisone last week. Dr. Jain reached out to me to see how quickly recreation center director at [facility] can see him. I discussed this case with Dr. Tolliver and soon after that I was told that [facility], which will be the best plan. Dr. Jain was updated about this plan by the hematology clinic. Castro Jimenez MD [facility] Hematology Oncology Fellow Page [phone] documented in this encounter Plan of Treatment Upcoming Encounters Date Type Department Care Team (Late st Contact Info) Description 09/19/2023 8:00 AM EDT Infusion Hematology Oncology at [address] [phone] 09/21/2023 9:30 AM EDT Office Visit Hematology [place] [address] Micha Givens Jr., MD [facility] [place] [address] 09/21/2023 10:30 AM EDT Clinical Support Hematology [place] [address] Danii Her RN 09/26/2023 8:30 AM EDT Infusion Hematology Oncology at [address] [phone] 10/03/2023 9:00 AM EDT Office Visit Hematology/Oncology at [address] [phone] Adrianne Ramon MD [facility] DR [place] [address] Yael Merlos, KARLA [facility] [place] [address] 10/03/2023 9:30 AM EDT Infusion Hematology Oncology at [address] [phone] 10/10/2023 8:30 AM EDT Infusion Hematology Oncology at [address] [phone] documented as of this encounter Visit Diagnoses Not on filedocumented in this encounter Care Teams Ware Tester Relationship Specialty Start Date End Date Frederick Meade MD [address] [place] [address] [address] [place] [address] PCP - General Family Medicine 11/29/17 documented as of this encounter
--- OUTSIDE RECORDS SUMMARY | 2023-09-17 01:37 | XMS_ITS | Encounter Summary ---
[place] [address] Care Team Providers Care Supervisor Pre Wave Name Role Phone Bobby Headley MD Primary Care Provider [phone] Encounter Details Date Type Department Care Team (Late Contact Info) Description 10/21/2014 Telephone Radiation Oncology at [address] [phone] Nitin Stauffer MD [address] [place] [address] RADIATION ONCOLOGY [place], [place] [phone] Social History Tobacco Use Types Packs/Day Years [...] encounter Miscellaneous Notes * Telephone Encounter - Nitin Stauffer MD - 10/21/2014 1:27 PM EDT Call placed to patients PCP to discuss unexpected MRI finding of rectal narrowing. I was informed that Dr. Headley was in with a patient, so a voicemail was left today asking him to return our call. documented in this encounter Plan of Treatment Upcoming Encounters Date Type Department Care Team (Late Contact Info) Description 09/19/2023 8:00 AM EDT Infusion Hematology Oncology at [address] [phone] 09/21/2023 9:30 AM EDT Office Visit Hematology [place] [address] Micha Givens Jr., MD [facility] DR HEMATOLOGY [place] [address] 09/21/2023 10:30 AM EDT Clinical Support Hematology [place] [address] Danii Her RN 09/26/2023 8:30 AM EDT Infusion Hematology Oncology at [address] [phone] 10/03/2023 9:00 AM EDT Office Visit Hematology/Oncology at [address] [phone] Adrianne Ramon MD [facility] DR HEMATOLOGY [place] [address] Yael Merlos APRN [facility] DR HEMATOLOGY [place] [address] 10/03/2023 9:30 AM EDT Infusion Hematology Oncology at [address] [phone] 10/10/2023 8:30 AM EDT Infusion Hematology Oncology at [address] [phone] documented as of this encounter Visit Diagnoses Not on filedocumented in this encounter Care Teams Supervisor Pre Wave Relationship Specialty Start Date End Date Bobby Headley MD [address] [place] [address] PCP - General 01/29/14 11/28/17 documented as of this encounter
--- OUTSIDE RECORDS SUMMARY | 2023-09-17 01:37 | XMS_ITS | Encounter Summary ---
[place] [address] Care Team Providers Care Petroleum Sampler Name Role Phone Bobby Headley MD Primary Care Provider [phone] Encounter Details Date Type Department Care Team (Latest Contact Info) Description 10/19/2014 9:57 AM EDT - 10/19/2014 11:59 PM EDT Hospital En[place] [phone] Nitin Stauffer MD [address] [place] [address] DR RADIATION ONCOLOGY [place], [place] [id number] Cancer of prostate with intermediate recurrence risk (stage T2b-c or Riverside 7 or PSA 10-20) Discharge Disposition: Home Social History Tobacco Use [...] Sig Dispensed Refills Start Date End Date Ibuprofen 200 mg Capsule Take by mouth 4 times daily as needed. Reported on 05/24/2016 aspirin 81 mg Tablet, Chewable Take 81 mg by mouth daily. dexamethasone (DECADRON) 2 mg TabletIndications:Malig nant neoplasm of prostate Take 1 tablet by mouth See Admin Instructions. 1 tab twice a day for 3 days, then 1 tab daily for 3 days. Start the day OF the procedure. 9 tablet 0 10/05/2014 11/26/2014 lisinopril (PRINIVIL;ZESTRIL) 20 mg Tablet Take 20 mg by mouth daily. 03/17/2019 documented as of this encounter Plan of Treatment Upcoming Encounters Date Type Department Care Team (Late st Contact Info) Description 09/19/2023 8:00 AM EDT Infusion Hematology Oncology at [address] [phone] 09/21/2023 9:30 AM EDT Office Visit Hematology [place] [address] Micha Givens Jr., MD [facility] DR [place] [address] 09/21/2023 10:30 AM EDT Clinical Support Hematology [place] [address] Danii Her, RN 09/26/2023 8:30 AM EDT Infusion Hematology Oncology at [address] [phone] 10/03/2023 9:00 AM EDT Office Visit Hematology/Oncology at [address] [phone] Adrianne Ramon MD [facility] DR [place] [address] Yael Merlos APRN [facility] [place] [address] 10/03/2023 9:30 AM EDT Infusion Hematology Oncology at [address] [address] 10/10/2023 8:30 AM EDT Infusion Hematology Oncology at [address] [phone] documented as of this encounter Procedures Procedure Name Priority Date/Time Associated Diagnosis Comments MRI PELVIS SOFT TISSUE (GI DRAPERY SEAMSTRESS) WWO CONTRAST Routine 10/19/2014 11:54 AM EDT documented in this encounter Results * (ABNORMAL) MRI Pelvis With/WO Contrast (10/19/2014 11:54 AM EDT) Anatomical Region Laterality Modality Pelvis Magnetic Resonan ce 10/19/2014 11:5 4 AM EDT Impressions 10/19/2014 2:20 PM EDT IMPRESSION: 1. PI-RADS 5 lesion in the right lateral and anterolateral apex compatible with the known tumor on sextant biopsy. There is focal bulging of the capsule and loss of fat plane between the lesion and the levator ani musculature suspicious for extracapsular extension. 2. There is a small amount of ascites, possibly from the biopsy. 3. Hemorrhage is present within the peripheral zone bilaterally from recent biopsy. 4. ??Focal narrowing of the rectum on all sequences. Colonoscopy recommended to exclude an annular lesion. Unexpected finding. This report was reviewed by Anusha Sarah at 10/19/2014 2:15 PM Film and interpretation reviewed by the attending Narrative 10/19/2014 2:20 PM EDT EXAMINATION: MR Pelvis W WO Marcial CLINICAL HISTORY: prostate cancer radiation planning protocol 1. detection. ??PSA level: 3.9 2. Staging. ??Date of sextant biopsy: 09/24/2014 Cierra score: 4+3 TECHNIQUE: Multiparametric MRI of the prostate prior to and following IV administration of 10 cc of Gadavist contrast. ?? COMPARISON: None FINDINGS: Prostate dimensions: 3.2 x 2.9 x 3.2cm. Estimated prostate volume: 15 (X x Y x Z x 0.52) Peripheral zone: There is of increased T1 signal are seen in the peripheral zone bilaterally compatible with hemorrhage from recent biopsy. T2: Teardrop shaped hypointense lesion involving the right far lateral and anterolateral apex approaches the urethra. PI-RADs: 5. DWI: Corresponding to the T2 abnormality, there is restricted diffusion measuring 2.2 cm.. PI-RADs: 5. DCE-MRI: Early arterial enhancement with washout.. ? Combined PI-RADs: 5. Transitional zone: T2: Heterogeneous T2 signal with no discrete lesions.. PI-RADs: 2. DWI: ??No abnormality on ADC and high b-value DWI. Combined PI-RADs: 2. Extracapsular extension: The lesion bulges anteriorly and laterally at the apex and there is loss of fat plane between the gland and levator ani musculature. This is seen transference on series 6 image 16. Lymph nodes: No evidence of regional lymphadenopathy. Osseous structures: There are degenerative changes in the lumbar spine. No focal osseous lesions are identified. Seminal vesicles: There is absent fluid signal within the left and diminished signal in the right seminal vesicle but no tumor is seen near the seminal vesicles. This could be postbiopsy change. There is mild thickening and trabeculation of the bladder wall which could suggest hypertrophy. Focal narrowing in the mid rectum noted. A small amount of ascites is noted in the pelvis. Resulting Agency Comment Unexpected Finding Procedure Note Anusha Sarah MD - 10/19/2014 EXAMINATION: MR Pelvis W WO Marcial CLINICAL HISTORY: prostate cancer radiation planning protocol 1. detection. PSA level: 3.9 2. Staging. Date of sextant biopsy: 09/24/2014 Riverside score: 4+3 TECHNIQUE: Multiparametric MRI of the prostate prior to and following IV administration of 10 cc of Gadavist contrast. COMPARISON: None FINDINGS: Prostate dimensions: 3.2 x 2.9 x 3.2cm. Estimated prostate volume: 15 (X x Y x Z x 0.52) Peripheral zone: There is of increased T1 signal are seen in theperipheral zone bilaterally compatible with hemorrhage from recent biopsy. T2: Teardrop shaped hypointense lesion involving the right far lateraland anterolateral apex approaches the urethra. PI-RADs: 5. DWI: Corresponding to the T2 abnormality, there is restricted diffusion measuring 2.2 cm.. PI-RADs: 5. DCE-MRI: Early arterial enhancement with washout.. Combined PI-RADs: 5. Transitional zone: T2: Heterogeneous T2 signal with no discrete lesions.. PI-RADs: 2. DWI: No abnormality on ADC and high b-value DWI. Combined PI-RADs: 2. Extracapsular extension: The lesion bulges anteriorly and laterally at theapex and there is loss of fat plane between the gland and levator animusculature. This is seen transference on series 6 image 16. Lymph nodes: No evidence of regional lymphadenopathy. Osseous structures: There are degenerative changes in the lumbar spine. Nofocal osseous lesions are identified. Seminal vesicles: There is absent fluid signal within the left anddiminished signal in the right seminal vesicle but no tumor is seen near theseminal vesicles. This could be postbiopsy change. There is mild thickening and trabeculation of the bladder wall whichcould suggest hypertrophy. Focal narrowing in the mid rectum noted. A smallamount of ascites is noted in the pelvis. IMPRESSION IMPRESSION: 1. PI-RADS 5 lesion in the right lateral and anterolateral apex compatiblewith the known tumor on sextant biopsy. There is focal bulging of the capsuleand loss of fat plane between the lesion and the levator ani musculaturesuspicious for extracapsular extension. 2. There is a small amount of ascites, possibly from the biopsy. 3. Hemorrhage is present within the peripheral zone bilaterally fromrecent biopsy. 4. Focal narrowing of the rectum on all sequences. Colonoscopyrecommended to exclude an annular lesion. Unexpected finding. This report was reviewed by Anusha Sarah at 10/19/2014 2:15 PM Film and interpretation reviewed by the attending Nitin Stauffer MD IMG MRI ORDERABLES documented in this encounter Visit Diagnoses Diagnosis Cancer of prostate with intermediate recurrence risk (stage T2b-c or Cierra 7 or PSA 10-20) Malignant neoplasm of prostate documented in this encounter Administered Medications Inactive Administered Medications - up to 3 most recent administrations Medication Order MAR Action Action Date Dose Rate Site gadobutrol (GADAVIST) 1 mMol/mL injection 9.66 mL 9.66 mL (0.1 mL/kg/dose ? 96.6 kg Order-specific weight), Intravenous, ONCE PRN, 1 dose, Starting on Sun10/19/14 at 1033, Until Sun10/19/14 at 1148, Per Protocol, Routine Given 10/19/2014 11:48 AM EDT 10 mLs documented in this encounter Care Teams Petroleum Sampler Relationship Specialty Start Date End Date Bobby Headley MD [address] [place] [address] PCP - General 01/29/14 11/28/17 documented as of this encounter
--- OUTSIDE RECORDS SUMMARY | 2023-09-17 01:37 | XMS_ITS | Encounter Summary ---
[place] [address] Care Team Providers Care Hydroelectric Plant Electrical Engineer Name Role Phone Bobby Headley MD Primary Care Provider [phone] Encounter Details Date Type Department Care Team (Late st Contact Info) Description 01/07/2015 8:00 AM EST Office Visit Radiation Oncology at [address] [phone] Nitin Stauffer MD [address] [place] [address] DR RADIATION ONCOLOGY [place], [place] [id number] Malignant neoplasm of prostate Social History Tobacco [...] Sign Reading Time Taken Comments Blood Pressure 140/80 01/07/2015 8:00 AM EST Pulse 62 01/07/2015 8:00 AM EST Temperature - - Respiratory Rate - - Oxygen Saturation 99% 01/07/2015 8:00 AM EST Inhaled Oxygen Concentration - - Weight 89.2 kg (196 lb 9.6 oz) 01/07/2015 8:00 A M EST Height - - Body Mass Index 29.89 03/04/2014 3:22 PM EST documented in this encounter Patient Instructions * Patient Instructions* Nitin Stauffer MD - 01/07/2015 8:13 AM EST Dear Mr. Freire, I believe that overall you are doing well with your radiation treatments for prostate cancer and atthis point I do not believe any major changes need to be made to the overall plan for radiation therapy. We discussed dietary modifications to keep stools soft and help prevent bleeding. You can continue miralax once daily as well. Please also take a moment to review your medication list, and notify our clinic if there are medications you are taking that are not on the list, or if you have stopped taking any medications which are on the list. Finally, please remember that when it comes to your radiation appointment times, refer to the calendar provided to you by the radiation therapists. This will be more accurate than whatis seen on the schedule seen on the first page of this letter. We will plan to see you again next week to monitor your progress. In the meantime, if you have any questions or concerns please do not hesitate to ask for me or one of the nurses for assistance. If you are at home and experience any of the following you need to seek emergency care immediately by calling 911: 1. Sudden and unexpected breathing difficulty without any exertion 2. Sudden onset of chest pain 3. Sudden onset of severe pain or uncontrolled pain 4. Sudden onset of severe weakness and/or unable to ambulate 5. Sudden new onset of a seizure 6. Fall resulting in injury 7. Uncontrollable bleeding A Radiation Oncology doctor is cotton ball machine tender after our normal hours and on weekends. To call for urgent medical issues from radiation treatments that can not wait until normal business hours, please call and have the slitting machine operator helper page the Radiation Oncologist cotton ball machine tender. Nitin Ramirez MD documented in this encounter Progress Notes * Nitin Stauffer MD - 01/07/2015 8:02 AM EST [facility] On Treatment Visit Patient ID: Cheo Freire is a 64 y.o. 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 Concurrent Therapy: ST-ADT, Lupron #1 given 09/29/14 Plan Details: Daily Dose: 1.8 Gy Current Dose: 57.6 Gy in 32 fractions Planned Dose: 70.2 Gy in 39 fractions to the proximal SV and prostate 79.2 Gy in 44 fractions to the prostate Subjective / Interval History: Gen - No changes since last seen. Minimal hot flashes. - Reports nocturia 1-2x / night (slight increase from 0-1/night at baseline). More frequency, weaker stream but not bothersome. GI - Blood in stools noted over weekend, early this week. They have improved since altering diet tomake stools softer, taking miralax x 1/day. KPS: 100 Pain Assessment: Pain score today is 0/10. Objective: BP 140/80 mmHg Pulse 62 Wt 89.177 kg (196 lb 9.6 oz) SpO2 99% General - appears well, no distress. Sitting with in exam room. Interval Investigations: None Portal Imaging Review: I have personally reviewed this patient's interval portal imaging to confirm accurate positioning and alignment which matches the patient's original approved treatment planning images. Assessment: Tolerating radiotherapy as expected. Plan: Continue radiotherapy as prescribed. documented in this encounter Plan of Treatment Upcoming Encounters Date Type Department Care Team (Late st Contact Info) Description 09/19/2023 8:00 AM EDT Infusion Hematology Oncology at [address] [phone] 09/21/2023 9:30 AM EDT Office Visit Hematology [place] [address] Micha Givens Jr., MD [facility] DR [place] [address] 09/21/2023 10:30 AM EDT Clinical Support Hematology [place] [address] Danii Her RN 09/26/2023 8:30 AM EDT Infusion Hematology Oncology at [address] [address] 10/03/2023 9:00 AM EDT Office Visit Hematology/Oncology at [address] [phone] Adrianne Ramon MD [facility] DR [place] [address] Yael Merlos APRN [facility] [place] [address] 10/03/2023 9:30 AM EDT Infusion Hematology Oncology at [address] [address] 10/10/2023 8:30 AM EDT Infusion Hematology Oncology at [address] [phone] documented as of this encounter Visit Diagnoses Diagnosis Malignant neoplasm of prostate documented in this encounter Care Teams Hydroelectric Plant Electrical Engineer Relationship Specialty Start Date End Date Bobby Headley MD [address] [place] [address] PCP - General 01/29/14 11/28/17 documented as of this encounter
--- OUTSIDE RECORDS SUMMARY | 2023-09-17 01:37 | XMS_ITS | Encounter Summary ---
[place] [address] Care Team Providers Care Traveling Missionary Name Role Phone Bobby Headley MD Primary Care Provider [phone] Encounter Details Date Type Department Care Team (Latest Contact Info) Description 01/04/2015 Unscheduled Encounter Radiation Oncology at [address] [phone] Lidia Reno, RN Malignant neoplasm of prostate Social History [...] of this encounter Progress Notes * Lidia Reno, RN - 01/04/2015 8:26 AM EST Radiation Oncology Nursing on Treatment Note Patient as received 5220 cGy To the prostate For treatment of prostate cancer. Patient asked to be seen by nursing today following his xrt. Side effects that patient is experiencing: Blood in toilet after BM starting Sunday. Sunday BM firmer but has been soft since Sunday. He describes the need to push to achieve movement. Has one BM/day. No bleeding in between movements. Nocturia 1-2 , no dysuria. Reports getting adequate fluids. Assessment: Alteration GI status. Anticipatory guidance/ interventions: Dr. Eh updated regarding change in patient status, bleeding, tendency to constipation. He recommended that patient start taking Miralax daily. Other:Instructed to maintain adequate fluids, take miralax daily. Plan: Will be seen for otv this week . Mr. Freire is aware to report concerns in between otv as well. documented in this encounter Plan of Treatment Upcoming Encounters Date Type Department Care Team (Late st Contact Info) Description 09/19/2023 8:00 AM EDT Infusion Hematology Oncology at [address] [phone] 09/21/2023 9:30 AM EDT Office Visit Hematology [place] [address] Micha Givens Jr., MD [facility] DR [place] [address] 09/21/2023 10:30 AM EDT Clinical Support Hematology [place] [address] Danii Her RN 09/26/2023 8:30 AM EDT Infusion Hematology Oncology at [address] [address] 10/03/2023 9:00 AM EDT Office Visit Hematology/Oncology at [address] [address] Adrianne Ramon MD [facility] [place] [address] Yael Merlos APRN [facility] [place] [address] 10/03/2023 9:30 AM EDT Infusion Hematology Oncology at [address] [address] 10/10/2023 8:30 AM EDT Infusion Hematology Oncology at [address] [phone] documented as of this encounter Visit Diagnoses Diagnosis Malignant neoplasm of prostate documented in this encounter Care Teams Traveling Missionary Relationship Specialty Start Date End Date Bobby Headley MD [address] [place] [address] PCP - General 01/29/14 11/28/17 documented as of this encounter
--- OUTSIDE RECORDS SUMMARY | 2023-09-17 01:37 | XMS_ITS | Encounter Summary ---
Author Organization [facility] [place] [address] Care Team Providers Care Elevator Inspector Name Role Phone Bobby Headley MD Primary Care Provider [phone] Encounter Details Date Type Department Care Team (Latest Contact Info) Description 01/07/2015 Unscheduled Encounter Hematology/Oncology at [address] [phone] [facility] [place] [address] Dietary counseling and surveillance; Dietary counseling Social History Tobacco Use Types Packs/Day Years [...] as of this encounter Progress Notes * Diogenes Narvaez RD - 01/07/2015 8:45 AM EST [facility] Initial Dietitian Assessment Seen By: Gay Narvaez MS, RD, NATIONAL COVERAGE SPECIALIST, LD Referred by: Dr. Stauffer Reason for visit: Low fiber MNT Patient and diagnosis: Cheo Freire is a 64 y.o. 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 Assessment: HPI: T2DM Meds: reviewed Labs: NNL Ht: 172.7 cm Wt: Oncology Vitals 01/07/2015 Weight 89.177 kg Wt Hx: UBW: % UBW: IBW: 66.8 kg +/- 10% % IBW: BMI: 29.8 ___ Edema ___ Ascites ___Muscle wasting Calorie needs: 1300 - 1500 Protein needs: 66 - 80 Fluid needs: 1.5 - 2 L Food Intake: T2DM, typically follows CCD. Now cutting back on fiber d/t RT locations Am: Noon: Pm: Snacks: Supplements/Frequency: ___ Ensure/Plus ___ Boost/Plus ___ CIB ___ Other: Teas, vitamins, or other nutritional supplements: Food allergies or avoidances: Appetite: Nausea: Vomiting: Chewing: Dentition: Swallowing: Taste Changes: Bowels: were hard, now soft and did have some blood. Food availability/purchasing, meal planning and preparation: Depression: Social Support: Economic Issues: Physical Activity: Level of Motivation/Readiness to Change: Nutrition Diagnosis: Was asked by Dr. Stauffer to meet with patient and his as they had questions re: intake and RT with looser bowels. We discussed the concept of food as medicine and the importance of eating small, frequent, calorically dense, protein-rich meals and snacks throughout the day. Reviewed low fiber foods and discussed how they can help to firm up bowels and ease in digestion. Also discussed the benefits of light physical activity, 20-30 minutes, most days of the week to help with fatigue, stimulate appetite, and pre serve muscle mass during treatment. Nutrition Intervention: ? Increase caloric needs ? Modify diet consistency: Low fiber MNT ? Increase frequency of meals and snacks ? Need for supplements Nutrition Goals: Educational Handouts provided: -- diarrhea management -- ON-DPG: reducing risk of Prostate recurrance Other Recommendations: ? Monitoring and Evaluation: Will follow up with mulugeta Yoo I have provided him and his with my card and contact information should they have any questions in the mean time. Thank you for this consult. documented in this encounter Plan of Treatment Upcoming Encounters Date Type Department Care Team (Late st Contact Info) Description 09/19/2023 8:00 AM EDT Infusion Hematology Oncology at [address] [phone] 09/21/2023 9:30 AM EDT Office Visit Hematology [place] [address] Micha Givens Jr., MD [facility] DR [place] [address] 09/21/2023 10:30 AM EDT Clinical Support [place]ematology [place] [address] Danii Her RN 09/26/2023 8:30 AM EDT Infusion Hematology Oncology at [address] [phone] 10/03/2023 9:00 AM EDT Office Visit Hematology/Oncology at [address] [phone] Adrianne Ramon MD [facility] DR [place] [address] Yael Merlos APRN [facility] DR [place] [address] 10/03/2023 9:30 AM EDT Infusion Hematology Oncology at [address] [phone] 10/10/2023 8:30 AM EDT Infusion Hematology Oncology at [address] [phone] documented as of this encounter Visit Diagnoses Diagnosis Dietary counseling and surveillance Dietary surveillance and counseling Dietary counseling Dietary surveillance and counseling documented in this encounter Care Teams Elevator Inspector Relationship Specialty Start Date End Date Bobby Headley MD [address] [place] [address] PCP - General 01/29/14 11/28/17 documented as of this encounter
--- OUTSIDE RECORDS SUMMARY | 2023-09-17 01:37 | XMS_ITS | Encounter Summary ---
Author Organization [facility] Address [facility] [place] [address] Care Team Providers Care Property Management Accountant Name Role Phone Bobby Headley MD Primary Care Provider [phone] Reason for Visit * Reason Comments Prostate Cancer Lupron 22.5 mg into left buttocks Encounter Details Date Type Department Care Team (Late st Contact Info) Description 09/29/2014 1:00 PM EDT Infusion Hematology Oncology at [address] [phone] CLINIC, DR [facility] HEM/ONC William German MD [facility] [place] [address] Malignant neoplasm of prostate Discharge Disposition: Home Social History Tobacco Use [...] as of this encounter Progress Notes * Glenny Timmons - 09/29/2014 1:02 PM EDT Infusion Note Diagnosis:Prostate Cancer Treatment: Lupron Injection Lupron 22.5 mg injected in left buttocks Patient instructed on side effects of Lupron. Patient states understanding of teaching, Patient aware to call clinic with any questions or concerns. Plan: Return to clinic as scheduled. documented in this encounter Plan of Treatment Upcoming Encounters Date Type Department Care Team (Late st Contact Info) Description 09/19/2023 8:00 AM EDT Infusion Hematology Oncology at [address] [phone] 09/21/2023 9:30 AM EDT Office Visit Hematology [place] [address] Micha Givens Jr., MD [facility] [place] [address] 09/21/2023 10:30 AM EDT Clinical Support Hematology [place] [address] Danii Her RN 09/26/2023 8:30 AM EDT Infusion Hematology Oncology at [address] [address] 10/03/2023 9:00 AM EDT Office Visit Hematology/Oncology at [address] [phone] Adrianne Ramon MD [facility] [place] [address] Yael Merlos APRN [facility] [place] [address] 10/03/2023 9:30 AM EDT Infusion Hematology Oncology at [address] [address] 10/10/2023 8:30 AM EDT Infusion Hematology Oncology at [address] [phone] documented as of this encounter Visit Diagnoses Diagnosis Malignant neoplasm of prostate documented in this encounter Administered Medications Inactive Administered Medications - up to 3 most recent administrations Medication Order MAR Action Action Date Dose Rate Site leuprolide (LUPRON) injection 22.5 mg 22.5 mg, Intramuscular, ONCE, 1 dose, On Sun09/29/14 at 1315, Routine Given 09/29/2014 1:02 PM EDT 22.5 mg Left Gluteal documented in this encounter Care Teams Property Management Accountant Relationship Specialty Start Date End Date Bobby Headley MD [address] [place] [address] PCP - General 01/29/14 11/28/17 documented as of this encounter
--- OUTSIDE RECORDS SUMMARY | 2023-09-17 01:37 | XMS_ITS | Encounter Summary ---
[place] [address] Care Team Providers Care Thermodynamicist Name Role Phone Bobby Headley MD Primary Care Provider [phone] Encounter Details Date Type Department Care Team (Late Contact Info) Description 10/21/2014 Orders Only Radiation Oncology at [address] [phone] Nitin Stauffer MD [address] [place] [address] DR RADIATION ONCOLOGY [place], [place] [id number] Social History Tobacco Use Types Packs/Day Years [...] 8:00 AM EDT Infusion Hematology Oncology at [address] [phone] 09/21/2023 9:30 AM EDT Office Visit [place]ology [place] [address] Micha Givens Jr., MD [facility] DR [place] [address] 09/21/2023 10:30 AM EDT Clinical Support [place] [address] Danii Her RN 09/26/2023 8:30 AM EDT Infusion Hematology Oncology at [address] [phone] 10/03/2023 9:00 AM EDT Office Visit Hematology/Oncology at [address] [phone] Adrianne Ramon MD [facility] [place] [address] Yael Merlos APRN [facility] [place] [address] 10/03/2023 9:30 AM EDT Infusion Hematology Oncology at [address] [phone] 10/10/2023 8:30 AM EDT Infusion Hematology Oncology at [address] [phone] documented as of this encounter Procedures Procedure Name Priority Date/Time Associated Diagnosis Comments FILM LIBRARY STORAGE ONLY RADIATION ONCOLOGY STUDIES Routine 10/21/2014 12:06 PM EDT documented in this encounter Results * Film Library Radiation Oncology Studies (10/21/2014 12:06 PM EDT) Anatomical Region Laterality Modality Other 10/21/2014 12:0 6 PM EDT Narrative 10/21/2014 12:06 PM EDT This is a Non-reportable exam Procedure Note HERB, UNSIGNED REPORT - 10/21/2014 This is a Non-reportable exam Nitin Stauffer MD [facility] [place]M LIBRARY ORD ERABLES documented in this encounter Visit Diagnoses Not on filedocumented in this encounter Care Teams Thermodynamicist Relationship Specialty Start Date End Date Bobby Headley MD [address] [place] [address] PCP - General 01/29/14 11/28/17 documented as of this encounter
--- OUTSIDE RECORDS SUMMARY | 2023-09-17 01:37 | XMS_ITS | Encounter Summary ---
[place] [address] Care Team Providers Care Polysom Tech Name Role Phone Bobby Headley MD Primary Care Provider [phone] Reason for Visit * Reason Comments Testicular Pain Encounter Details Date Type Department Care Team (Late st Contact Info) Description 03/04/2014 3:30 PM EST [place] [phone] Landry Nunez MD [facility] [place] [place] [address] Testis mass; Testis cancer, right Discharge Disposition: Home Social History Tobacco Use Types Packs/Day Years Used Date Smoking Tobacco: Former Cigarettes Sex and Gender Information Value Date Recorded Sex Assigned at Not on file Gender Identity Not on file Sexual Orientation Not on file documented as of this encounter Last Filed Vital Signs Vital Sign Reading Time Taken Comments Blood Pressure 160/98 03/04/2014 3:22 PM EST Pulse - - Temperature - - Respiratory Rate 16 03/04/2014 3:22 PM EST Oxygen Saturation - - Inhaled Oxygen Concentration - - Weight 98.9 kg (218 lb) 03/04/2014 3:22 PM EST Height 172.7 cm (5' 8) 03/04/2014 3:22 PM EST Body Mass Index 33.15 03/04/2014 3:22 PM EST documented in this encounter Progress Notes * Landry Nunez MD - 03/04/2014 3:06 PM EST Images from the original note were not included. Patient Name: Cheo Morfin Date of Service: 03/04/2014 Primary Care Provider: BOBBY HEADLEY MD Reason for Visit: Cheo Morfin is a 63 y.o. male who is referred by Dr Mariano for evaluation of a right testis mass ~December 2013 noted mass on his right testicle in the shower. The mass is not painful. He thinks it may have resolved Currently the patient has no irritative symptoms with minimal frequencyand nocturia x 0-1. The urinary stream is OK and the bladder is emptied completely. There is no hematuria. Erectile function is Appetite is good weight is stable. There is no bone pain. Past Medical History: NIDDM Type II HTN Past Surgical History: 2012 Bilateral Cataract surgery Appendectomy as a child Tonsils as a child Medications: Reviewed Allergies: Reviewed Family History: There is no family history of testicular cancer. No diseases run in the family. 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 The patient has been for 24 years (3rd marriage (divorce and ) with 4 children . The patient drinks occ beer Tobacco None since ~1989. ~10 pack years Systems review: He walks 45 minutes a day HEENT: Denies problems with vision, hearing, runny nose, epistaxis, sore throat, hoarseness Cardiovascular: Denies Chest pain, palpitations, shortness of breath, ankle swelling, claudication Respiratory: Denies cough, phlegm, hemoptysis,wheeze, Gastrointestinal: Denies nausea, difficulty swallowing, vomiting, hematemesis, constipation, diarrhea, blood per rectum Neurological: Denies dizziness, double vision, headache, weakness of one side of the body or the other,sudden loss of vision in one eye, Bones and muscles: Denies bone pain, radiating pain, muscle weakness or sore ness. All other systems negative. Physical Exam: Vital Signs are reviewed. The patient appears healthy and in no distress. Examination of the hands, head neck, eyes ears nose and throat is normal. The skin is normal. Thereis no lymphadenopathy or thyroidomegaly The chest is clear to percussion and auscultation. Heart sounds I and II are normal without murmurs or added sounds. Peripheral pulses are full without bruits The abdomen is benign. There are no masses or organomegaly. External genitalia is notable for a small left testicle ~ [id number]. There is a tiny firm area palpable in the left epididimis ~ 2-3mm in size. I cannot feel any testis masses. I cannot feel any Right testis mass today Rectal exam not performed Examination of the extremities and neurological examination is grossly normal. Lab values are reviewed 01/22/2014 AFP 1.6, BHcg 1.0 01/2014 Hb 13.6, Plt 276, Cr 1.17, LFT's normal 02/2013 Hb 13.1, WCC 9.0, Plt 280 02/2013 AFP 2.3, BHcg <1 X-rays are reviewed 12/30/201302/2014 Testis U/S Impression Ultrasound - Testicular - Summary 1. In the interval, decreased size of right intratesticular mass, currently 3mm without internal vascularity. Second mass no longer visable. Nonspecific, but favor post infectious/inflammatory etiologies. Consider follow up sonographically as indicated. 2. Stable right hydrocoele and calcification. Impression: #1: Right testis masses decreasing in size ? 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 Fortunately the findings are resolving. I discussed with thepatient the uncertainy surrounding the diagnosis. Given that the masses are resolving it is unlikely they are malignant. He should see Dr Vergara in ~ 3 months with a repeat testis U/S All questions answered documented in this encounter Plan of Treatment Upcoming Encounters Date Type Department Care Team (Late st Contact Info) Description 09/19/2023 8:00 AM EDT Infusion Hematology Oncology at [address] [phone] 09/21/2023 9:30 AM EDT Office Visit Hematology [place] [address] Landry Givens Jr., MD [facility] [place] [address] 09/21/2023 10:30 AM EDT Clinical Support Hematology [place] [address] Danii Her RN 09/26/2023 8:30 AM EDT Infusion Hematology Oncology at [address] [phone] 10/03/2023 9:00 AM EDT Office Visit Hematology/Oncology at [address] [phone] Adrianne Ramon MD [facility] DR [place] [address] Yael Merlos, KARLA [facility] [address] [place] [address] 10/03/2023 9:30 AM EDT Infusion Hematology Oncology at [address] [phone] 10/10/2023 8:30 AM EDT Infusion Hematology Oncology at [address] [phone] documented as of this encounter Procedures Procedure Name Priority Date/Time Associated Diagnosis Comments HEMOGRAM Routine 03/04/2014 4:03 PM EST Testis mass DIFFERENTIAL, AUTOMATED Routine 03/04/2014 4:03 PM EST Testis mass AFP TUMOR MARKER STAT 03/04/2014 4:03 PM EST Testis mass Testis cancer, right CBC (WITH DIFF) Routine 03/04/2014 4:03 PM EST Testis mass BETA HCG, QUANTITATIVE STAT 03/04/2014 4:03 PM EST Testis mass Testis cancer, right documented in this encounter Results * US scrotum (03/04/2014 4:46 PM EST) Anatomical Region Laterality Modality Pelvis Ultrasound 03/04/2014 4:46 PM EST Narrative 03/04/2014 5:00 PM EST Scrotal ?(Signed Final 03/04/2014 05:00 ? pm) Patient Info ID #: ? [id number] ?: ??[birth year] (63 yrs) Name: ? CHEO MORFIN ? Visit Date: 03/04/2014 04:39 pm Performed By Performed By: ?Hannah Wahl RDMS Attending: ? Alexandre OCASIO, Jaime Dumas Referred By: ? LANDRY NUNEZ MD Service(s) Provided ??[facility] - Ultrasound Scrotum and Contents with ?[id number], [id number] ??Vascular - [id number], [id number] Indications ??Evaluate Right testicle hx of testis mass ? change ??in size ??Please send patient back to 5B after US Right Testicle Measurement(cm) ? L: ??4.1 ?AP: ?? 2.8 ? TV: ??2.4 Vol (ml): ?14.4 Vascularity: ?Normal vascularity Comment: ?Hypoechoic area mid testicle emasuring 3mm. Right Epididymis Head: ?Normal Body: ?Normal Tail: ?Normal Right Other Hydrocele: ? Moderate hydrocele Varicocele: ?Not visualized Other Findings: ??8mm calculi seen within hydrocele on right. Left Testicle Measurement(cm) ? L: ??3.2 ?AP: ?? 2.1 ? TV: ??1.8 Vol (ml): ?6.3 Vascularity: ?Normal vascularity Comment: ?Small size compared to right testicle. Left Epididymis Head: ?Normal Body: ?Normal Tail: ?Normal Left Other Hydrocele: ? Small Varicocele: ?Not visualized Impression Ultrasound - ??Testicular - Summary 1. ??In the interval, decreased size of right intratesticular mass, currently 3mm without internal vascularity. Second mass no longer visable. ??Nonspecific, but favor post infectious/inflammatory etiologies. ??Consider follow up sonographically as indicated. 2. ??Stable right hydrocoele and calcification. I ??viewed the images and agree with the above interpretation. ?Jaime Schroeder MD Electronically Signed Final Report ?? 03/04/2014 05:00 pm Procedure Note Jaime Schroeder MD - 03/04/2014 Scrotal (Signed Final 03/04/2014 05:00 pm) Patient Info ID #: [id number] : [birth year] (63 yrs) Name: CHEO MORFIN Visit Date: 03/04/2014 04:39 pm Performed By Performed By: Hannah Wahl RDMS Attending: Jaime Schroeder MD Referred By: LANDRY NUNEZ MD Service(s) Provided [facility] - Ultrasound Scrotum and Contents with [id number], [id number] Vascular - [id number], [id number] Indications Evaluate Right testicle hx of testis mass ? change in size Please send patient back to 5B after US Right Testicle Measurement(cm) L: 4.1 AP: 2.8 TV: 2.4 Vol (ml): 14.4 Vascularity: Normal vascularity Comment: Hypoechoic area mid testicle emasuring 3mm. Right Epididymis Head: Normal Body: Normal Tail: Normal Right Other Hydrocele: Moderate hydrocele Varicocele: Not visualized Other Findings: 8mm calculi seen within hydrocele on right. Left Testicle Measurement(cm) L: 3.2 AP: 2.1 TV: 1.8 Vol (ml): 6.3 Vascularity: Normal vascularity Comment: Small size compared to right testicle. Left Epididymis Head: Normal Body: Normal Tail: Normal Left Other Hydrocele: Small Varicocele: Not visualized Impression Ultrasound - Testicular - Summary 1. In the interval, decreased size of right intratesticular mass, currently 3mm without internal vascularity. Second mass no longer visable. Nonspecific, but favor post infectious/inflammatory etiologies. Consider follow up sonographically as indicated. 2. Stable right hydrocoele and calcification. I viewed the images and agree with the above interpretation. Jaime Schroeder MD Electronically Signed Final Report 03/04/2014 05:00 pm Landry Nunez MD IM US GEN ORDERABLE S * Differential, Automated (03/04/2014 4:03 PM EST) Neutrophils % 56.3 % CERNER MILLENNIUM Neutr Abs (ANC) 5.08 1.50 - 6.30 x10(3)/mcL CERNER MILLENNIUM Lymphocytes % 31.5 % CERNER MILLENNIUM Lymphocytes Abs 2.8 1.0 - 3.6 x10(3)/mcL CERNER MILLENNIUM Monocytes % 9.6 % CERNER MILLENNIUM Monocyte Abs 0.9 0.2 - 1.0 x10(3)/mcL CERNER MILLENNIUM Eosinophils % 2.2 % CERNER MILLENNIUM Eosinophils Abs 0.2 0.0 - 0.5 x10(3)/mcL CERNER MILLENNIUM Basophils % 0.2 % CERNER MILLENNIUM Basophils Abs 0.0 0.0 - 0.2 x10(3)/mcL CERNER MILLENNIUM Immature Gran % 0.20 % CERN ER MILLENNIUM Comment: Immature granulocytes(IG's)percentage and absolute count will include metamyelocytes, myelocytes, and promyelocytes. Blood smears from CBCs yielding IG's will be scanned manually for concordance. If this scan disagrees with the automated IG or if promyelocytes are noted, a manual differential will be performed. Nellie Gran Abs 0.02 0.00 - 0.05 x10(3)/mcL CERNER MILLENNIUM Blood specimen (specimen) 03/04/2014 4:03 PM EST 03/04/2014 4:07 PM EST Narrative Resulting Agency Comment Spec In Lab Landry Nunez MD HEMATOLOGY ORDERABLE S CERNER MILLENNIUM * (ABNORMAL) Hemogram (03/04/2014 4:03 PM EST) WBC 9.0 4.0 - 10.0 x10(3)/mcL CERNER MILLENNIUM RBC 4.34(L) 4.63 - 6.08 x10(6)/mcL CERNER MILLENNIUM Hemoglobin 13.1(L) 13.7 - 17.5 gm/dL CERNER MILLENNIUM Hematocrit 39.8(L) 40.0 - 51.0 % CERNER MILLENNIUM MCV 91.7 79.0 - 92.0 fL CERNER MILLENNIUM MCH 30.2 25.6 - 32.2 pg CERNER MILLENNIUM MCHC 32.9 32.0 - 36.5 gm/dL CERNER MILLENNIUM Platelets 280 145 - 370 x10(3)/mcL CERNER MILLENNIUM RDWSD 45.9 35.0 - 46.0 fL CERNER MILLENNIUM RDWCV 13.7 10.9 - 14.4 % CERNER MILLENNIUM MPV 10.2 9.0 - 12.0 fL CERNER MILLENNIUM Blood specimen (specimen) 03/04/2014 4:03 PM EST 03/04/2014 4:07 PM EST Narrative Resulting Agency Comment Spec In Lab Landry Nunez MD HEMATOLOGY ORDERABLE S Performing Organization Address [facility]/State/ZIP Co de Phone Number [facility] * AFP tumor marker (03/04/2014 4:03 PM EST) AFP 2.3 <=8.3 ng/mL [facility] Blood specimen (specimen) 03/04/2014 4:03 PM EST 03/04/2014 4:07 PM EST Narrative Resulting Agency Comment Spec In Lab Landry Nunez MD CHEMISTRY ORDERABLES Performing Organization Address [facility]/ZIP Co de Phone Number [facility] * Beta HCG, quantitative (03/04/2014 4:03 PM EST) Beta hCG Quant <1 0 - 2 mlU/ML [facility] Comment: REFERENCE RANGES NON- FEMALE: ??Less than 5 mIU/mL POSTMENOPAUSAL FEMALE: ??Less than 8 mIU/mL ? -- FEMALES -- Weeks of ? HCG range ??(mIU/mL) ? 3 weeks ? 5.8 - 71.2 ? 4 weeks ? 9.5 - 750 ? 5 weeks ? 217 - 7,138 ? 6 weeks ? 158 - 31,795 ? 7 weeks ? 3,907 - 786,563 ? 8 weeks ? 32,065 - 149,571 ? 9 weeks ? 63,803 - 151,410 ?10 weeks ? 46,509 - 186,977 ?12 weeks ? 27,832 - 210,612 ?14 weeks ? 13,950 - 62,530 ?15 weeks ? 12,039 - 70,971 ?16 weeks ? 9,040 - 56,451 ?17 weeks ? 8,175 - 91,868 ?18 weeks ? 8,099 - 56,176 Blood specimen (specimen) 03/04/2014 4:03 PM EST 03/04/2014 4:07 PM EST Narrative Resulting Agency Comment Spec In Lab Landry Nunez MD CHEMISTRY ORDERABLES CERNER MILLENNIUM documented in this encounter Visit Diagnoses Diagnosis Testis mass Other specified disorder of male genital organs Testis cancer, right Testis mass Other specified disorder of male genital organs documented in this encounter Care Teams Polysom Tech Relationship Specialty Start Date End Date Bobby Headley MD [address] [place] [address] PCP - General 01/29/14 11/28/17 documented as of this encounter
--- OUTSIDE RECORDS SUMMARY | 2023-09-17 01:37 | XMS_ITS | Encounter Summary ---
Author Organization [facility] [place] [address] Care Team Providers Care Outreach Manager Name Role Phone Bobby Headley MD Primary Care Provider [phone] Encounter Details Date Type Department Care Team (Late st Contact Info) Description 12/30/2013 Orders [place] [phone] Micha Nunez MD [facility] [place] [address] Social History Tobacco Use Types Packs/Day Years [...] AM EDT Infusion Hematology Oncology at [address] [phone] 09/21/2023 9:30 AM EDT Office Visit Hematology [place] [phone] Micha Givens Jr., MD [facility] [place] [address] 09/21/2023 10:30 AM EDT Clinical Support Hematology [place] [phone] Danii Her RN 09/26/2023 8:30 AM EDT Infusion Hematology Oncology at [address] [phone] 10/03/2023 9:00 AM EDT Office Visit Hematology/Oncology at [address] [phone] Adrianne Ramon MD [facility] [place] [address] Yael Merlos APRN [facility] [place] [address] 10/03/2023 9:30 AM EDT Infusion Hematology Oncology at [address] [phone] 10/10/2023 8:30 AM EDT Infusion Hematology Oncology at [address] [phone] documented as of this encounter Procedures Procedure Name Priority Date/Time Associated Diagnosis Comments FILM LIBRARY STORAGE ONLY ULTRASOUND STUDY Routine 12/30/2013 8:15 AM EST documented in this encounter Results * Film Library- Storage only Ultrasound Study (12/30/2013 8:15 AM EST) Anatomical Region Laterality Modality Other 12/30/2013 8:15 AM EST Narrative 02/03/2014 9:22 PM EST This is a Non-reportable exam Procedure Note HERB, UNSIGNED REPORT - 02/03/2014 This is a Non-reportable exam Micha Nunez MD [facility] FILM LIBRARY ORD ERABLES documented in this encounter Visit Diagnoses Not on filedocumented in this encounter Care Teams Outreach Manager Relationship Specialty Start Date End Date Bobby Headley MD [address] [place] [address] PCP - General 01/29/14 11/28/17 documented as of this encounter
--- OUTSIDE RECORDS SUMMARY | 2023-09-17 01:37 | XMS_ITS | Encounter Summary ---
[place] [address] Care Team Providers Care First Beater Name Role Phone Bobby Headley MD Primary Care Provider [phone] Reason for Visit * Reason Comments On Treatment Visit Encounter Details Date Type Department Care Team (Late st Contact Info) Description 01/19/2015 8:00 AM EST Office Visit Radiation Oncology at [address] [phone] Nitin Stauffer MD [address] [place] [address] [place] [address] Cancer of prostate with intermediate recurrence risk (stage T2b-c or [place] 7 or PSA 10-20) Social History Tobacco Use Types Packs/Day Years [...] Sign Reading Time Taken Comments Blood Pressure 145/78 01/19/2015 7:00 AM EST Pulse 72 01/19/2015 7:00 AM EST Temperature 36.8 ??C (98.2 ??F) 01/19/2015 7:00 AM ES T Respiratory Rate - - Oxygen Saturation 100% 01/19/2015 7:00 AM EST Inhaled Oxygen Concentration - - Weight 90.3 kg (199 lb) 01/19/2015 7:00 AM EST Height - - Body Mass Index 30.26 03/04/2014 3:22 PM EST documented in this encounter Patient Instructions * Patient Instructions* Nitin Stauffer MD - 01/19/2015 8:12 AM EST Dear Mr. Freire, I believe [...] Uncontrollable bleeding A Radiation Oncology doctor is professional tutor after our normal hours and on weekends. To call for urgent medical issues from radiation treatments that can not wait until normal business hours, please call and have the slip bridge operator page the Radiation Oncologist professional tutor. Nitin Ramirez. MD Eh documented in this encounter Progress Notes * Nitin Stauffer MD - 01/19/2015 8:11 AM EST [facility] On Treatment Visit Patient ID: Cheo Freire is a 64 y.o. 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 Concurrent Therapy: ST-ADT, Lupron #1 given 09/29/14 Lupron #2, given 12/22/14 Plan Details: Daily Dose: 1.8 Gy Current Dose: 70.2 Gy in 39 fractions Planned Dose: 70.2 Gy in 39 fractions to the proximal SV and prostate 79.2 Gy in 44 fractions to the prostate Subjective / Interval History: Gen - No changes since last seen. - Reports nocturia 2x / night (slight increase from 0-1/night at baseline). Stream better since stargin ibuprofen 600mg qhs. GI - No blood in stools, taking miralax x 1/day to keep stools soft. No diarrhea. KPS: 100 Pain Assessment: Pain score today is 0/10. Objective: BP 145/78 mmHg Pulse 72 Temp(Src) 36.8 ??C (98.2 ??F) Wt 90.266 kg (199 lb) SpO2 100% General - appears well, no distress. Sitting [...] 8:00 AM EDT Infusion Hematology Oncology at [address] [phone] 09/21/2023 9:30 AM EDT Office Visit Hematology [place] [phone] Micha Givens Jr., MD [facility] DR HEMATOLOGY [place] [address] 09/21/2023 10:30 AM EDT Clinical Support Hematology [place] [address] Danii Her RN 09/26/2023 8:30 AM EDT Infusion Hematology Oncology at [address] [phone] 10/03/2023 9:00 AM EDT Office Visit Hematology/Oncology at [address] [phone] Adrianne Ramon MD [facility] DR HEMATOLOGY [place] [address] Yael Merlos APRN [facility] DR HEMATOLOGY [place] [address] 10/03/2023 9:30 AM EDT Infusion Hematology Oncology at [address] [phone] 10/10/2023 8:30 AM EDT Infusion Hematology Oncology at [address] [phone] documented as of this encounter Visit Diagnoses Diagnosis Cancer of prostate with intermediate recurrence risk (stage T2b-c or [place] 7 or PSA 10-20) Malignant neoplasm of prostate documented in this encounter Care Teams First Beater Relationship Specialty Start Date End Date Bobby Headley MD [address] [place] [address] PCP - General 01/29/14 11/28/17 documented as of this encounter
--- OUTSIDE RECORDS SUMMARY | 2023-09-17 01:37 | XMS_ITS | Encounter Summary ---
[place] [address] Care Team Providers Care Claim Approver Name Role Phone Bobby Headlye MD Primary Care Provider [phone] Encounter Details Date Type Department Care Team (Late st Contact Info) Description 12/31/2014 8:00 AM EST Office Visit Radiation Oncology at [address] [phone] Nitin Stauffer MD [address] [place] [address] DR RADIATION ONCOLOGY [place], [place] [phone] Cancer of prostate with intermediate recurrence risk (stage T2b-c or [place] 7 or PSA 10-20) Social History Tobacco [...] Sign Reading Time Taken Comments Blood Pressure 153/90 12/31/2014 8:00 AM EST Pulse 66 12/31/2014 8:00 AM EST Temperature 37 ??C (98.6 ??F) 12/31/2014 8:00 AM EST Respiratory Rate - - Oxygen Saturation 99% 12/31/2014 8:00 AM EST Inhaled Oxygen Concentration - - Weight 90.9 kg (200 lb 6.4 oz) 12/31/2014 8:00 A M EST Height - - Body Mass Index 30.47 03/04/2014 3:22 PM EST documented in this encounter Patient Instructions * Patient Instructions* Nitin Stauffer MD - 12/31/2014 8:07 AM EST Dear Mr. Freire, I believe that overall you are doing well with your radiation treatments for prostate cancer and atthis point I do not believe any major changes need to be made to the overall plan for radiation therapy. Please also take a moment to review [...] Uncontrollable bleeding A Radiation Oncology doctor is security solutions engineer after our normal hours and on weekends. To call for urgent medical issues from radiation treatments that can not wait until normal business hours, please call and have the bridge operator slip page the Radiation Oncologist security solutions engineer. Nitin Ramirez MD documented in this encounter Progress Notes * Nitin Stauffer MD - 12/31/2014 8:07 AM EST [facility] On Treatment Visit Patient ID: Cheo Freire is a 64 y.o. 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 Concurrent Therapy: ST-ADT, Lupron #1 given 09/29/14 Plan Details: Daily Dose: 1.8 Gy Current Dose: 48.6 Gy in 27 fractions Planned Dose: 70.2 Gy in 39 fractions to the proximal SV and prostate 79.2 Gy in 44 fractions to the prostate Subjective / Interval History: Gen - No changes since last seen. Minimal hot flashes. - Reports nocturia 1-2x / night (slight increase from 0-1/night at baseline). GI - No diarrhea. KPS: 100 Pain Assessment: Pain score today is 0/10. Objective: BP 153/90 mmHg Pulse 66 Temp(Src) 37 ??C (98.6 ??F) Wt 90.901 kg (200 lb 6.4 oz) SpO2 99% General - appears well, [...] AM EDT Infusion Hematology Oncology at [address] [phone] 09/21/2023 9:30 AM EDT Office Visit Hematology [place] [address] Micha Givens Jr., MD [facility] [place] [address] 09/21/2023 10:30 AM EDT Clinical Support Hematology [place] [address] Danii Her RN 09/26/2023 8:30 AM EDT Infusion Hematology Oncology at [address] [phone] 10/03/2023 9:00 AM EDT Office Visit Hematology/Oncology at [address] [phone] Adrianne Ramon MD [facility] DR [place] [address] Yael Merlos APRN [facility] [place] [address] 10/03/2023 9:30 AM EDT Infusion Hematology Oncology at [address] [phone] 10/10/2023 8:30 AM EDT Infusion Hematology Oncology at [address] [phone] documented as of this encounter Visit Diagnoses Diagnosis Cancer of prostate with intermediate recurrence risk (stage T2b-c or [place] 7 or PSA 10-20) Malignant neoplasm of prostate documented in this encounter Care Teams Claim Approver Relationship Specialty Start Date End Date Bobby Headley MD [address] [place] [address] PCP - General 01/29/14 11/28/17 documented as of this encounter
--- OUTSIDE RECORDS SUMMARY | 2023-09-17 01:37 | XMS_ITS | Encounter Summary ---
[place] [address] Care Team Providers Care Cloth Coverer Name Role Phone Bobby Headley MD Primary Care Provider [phone] Reason for Visit * Reason Comments Prostate Cancer Lupron injection Encounter Details Date Type Department Care Team (Late st Contact Info) Description 12/22/2014 8:30 AM EST Infusion Hematology Oncology at [address] [phone] Malignant neoplasm of prostate Social History Tobacco [...] Sign Reading Time Taken Comments Blood Pressure 133/76 12/22/2014 9:04 AM EST Pulse 76 12/22/2014 9:04 AM EST Temperature 36.7 ??C (98.1 ??F) 12/22/2014 9:04 AM ES T Respiratory Rate 18 12/22/2014 9:04 AM EST Oxygen Saturation - - Inhaled Oxygen Concentration - - Weight - - Height - - Body Mass Index - - documented in this encounter Progress Notes * Demetra Nazario RN - 12/22/2014 9:09 AM EST Treatment Started:8:30 Treatment Ended:8:45 Diagnosis: Prostate cancer Treatment:Lupron 22.5 mg IM R gluteal Tolerated well. documented in this encounter Plan of Treatment Upcoming Encounters Date Type Department Care Team (Late st Contact Info) Description 09/19/2023 8:00 AM EDT Infusion Hematology Oncology at [address] [phone] 09/21/2023 9:30 AM EDT Office Visit Hematology [place] [address] Micha Givens Jr., MD [facility] DR HEMATOLOGY [place] [address] 09/21/2023 10:30 AM EDT Clinical Support Hematology [place] [address] Danii Her RN 09/26/2023 8:30 AM EDT Infusion Hematology Oncology at [address] [phone] 10/03/2023 9:00 AM EDT Office Visit Hematology/Oncology at [address] [phone] Adrianne Ramon MD [facility] DR HEMATOLOGY [place] [address] Yael Merlos APRN [facility] DR HEMATOLOGY [place] [address] 10/03/2023 9:30 AM EDT Infusion Hematology Oncology at [address] [phone] 10/10/2023 8:30 AM EDT Infusion Hematology Oncology at [address] [phone] documented as of this encounter Visit Diagnoses Diagnosis Malignant neoplasm of prostate documented in this encounter Administered Medications Inactive Administered Medications - up to 3 most recent administrations Medication Order MAR Action Action Date Dose Rate Site leuprolide (LUPRON) injection 22.5 mg 22.5 mg, Intramuscular, ONCE, 1 dose, On Sun12/22/14 at 0830, Dose 2 of 2., Routine Given 12/22/2014 8:30 AM EST 22.5 mg Right Gluteal documented in this encounter Care Teams Cloth Coverer Relationship Specialty Start Date End Date Bobby Headley MD [address] [place] [address] PCP - General 01/29/14 11/28/17 documented as of this encounter
--- OUTSIDE RECORDS SUMMARY | 2023-09-17 01:37 | XMS_ITS | Encounter Summary ---
Author Organization [facility] [place] [address] Care Team Providers Care Integrated Logistics Support Manager Name Role Phone Bobby Headley MD Primary Care Provider [phone] Encounter Details Date Type Department Care Team (Late st Contact Info) Description 09/28/2014 Abstract Radiation Oncology at [address] [phone] Christine Garcia RN Social History Tobacco Use Types Packs/Day Years Used Date Smoking Tobacco: Former Cigarettes Alcohol Use Standard Drinks/Week Comments Yes 3 [...] AM EDT Infusion Hematology Oncology at [address] [phone] 09/21/2023 9:30 AM EDT Office Visit Hematology [place] [phone] Micha Givens Jr., MD [facility] [place] [address] 09/21/2023 10:30 AM EDT Clinical Support Hematology [place] [phone] Danii Her RN 09/26/2023 8:30 AM EDT Infusion Hematology Oncology at [address] [phone] 10/03/2023 9:00 AM EDT Office Visit Hematology/Oncology at [address] [phone] Adrianne Ramon MD [facility] DR [place] [address] Yael Merlos APRN [facility] [place] [address] 10/03/2023 9:30 AM EDT Infusion Hematology Oncology at [address] [phone] 10/10/2023 8:30 AM EDT Infusion Hematology Oncology at [address] [phone] documented as of this encounter Visit Diagnoses Not on filedocumented in this encounter Care Teams Integrated Logistics Support Manager Relationship Specialty Start Date End Date Bobby Headley MD [address] [place] [address] PCP - General 01/29/14 11/28/17 documented as of this encounter
--- OUTSIDE RECORDS SUMMARY | 2023-09-17 01:37 | XMS_ITS | Encounter Summary ---
Author Organization [facility] [place] [address] Care Team Providers Care Diesel Locomotive Firer/Fireman Name Role Phone Bobby Headley MD Primary Care Provider [phone] Encounter Details Date Type Department Care Team (Latest Contact Info) Description 10/05/2014 Unscheduled Encounter Radiation Oncology at [address] [phone] Christine Garcia, RN Malignant neoplasm of prostate Social History [...] on file documented as of this encounter Patient Instructions * Patient Instructions* Christine Fernando RN - 10/05/2014 9:37 AM EDT Patient Information for Gold Coil Placement Procedure Appointment Date: Oct 14, 2014 Time:arrive at 8:00 Why do I need coil markers? You and your doctor have discussed treatment options and have decided that gold coils will be helpful in your external beam radiation treatment. ??? The markers are small 24 karat gold coils that will sit within the prostate and help locate theprostate in the planning CT scan and during treatment. ??? Two coils are used--one to devika each side of the gland. ??? The coils are permanent. You will be able to have MRI scans. STOP taking ???blood thinners:? Stop taking medications* that might thin your blood (anticoagulants) one week before your gold coils are scheduled to be placed. ??? For you this means stop taking your: Ibuprofen and aspirin On__10/08 *aspirin, ibuprofen, ginko biloba, Coumadin, Lovenox, ginseng, garlic, etc. Please ask if you are not sure about any of your medications. Prescriptions to get filled and things to berry picker machine operator from the pharmacy: Two Fleets Enema You will need to administer one the evening before and the second one the morning of the procedure. Rx for ciprofloxacin Twice a day for 3 days starting the day before the procedure RX for dexamethasone Twice a day for 3 days then once a day for 3 days. Start day of procedure. The day before the procedure: Start Cipro as directed ??? Eat a normal dinner ??? Take one Fleets Enema before bedtime The morning of the procedure: ??? Take the second Fleets enema (2-3 hours prior to scheduled time of procedure) ??? Eat a normal breakfast and take your morning medications (except anticoagulants) Start the dexamethasone as directed. ??? Plan to arrive in the Radiation Department at : 8:00 (one half hour before scheduled procedure) ??? You may be given a pill called lorazepam (Ativan) to help your muscles relax for the procedure.You will need a cdl flatbed truck driver to take you home. ??? Change into gown--remove everything from your waist down. How is it done? You will be brought into a procedure room and asked to lie on your back with your feet placed in stirrups (similar to when you had your ultrasound guided biopsy). ??? An ultrasound probe will be inserted into your rectum in order to visualize your prostate gland. ??? After you are given a local anesthetic, the two needles containing the coils will be gently inserted through the skin into your prostate gland. After the procedure: ??? You may resume normal activity. ??? You may take extra-strength Tylenol for any discomfort. ??? Finish taking your dexamethasone and Cipro as directed. ??? Resume your Ibuprofen and aspirien after 48 hours. ??? Call us if you notice any unusual swelling, pain, or if you have any other concerns. Future Appointments: MRI at [facility] [place]: 10/19 at 11:10 AM arrive at : Your CT simulation, planning session will be done at [facility]. 10/21 arrive at 10:30. You will see the nurse first for patient education .You will need a comfortably full bladder by 11:00 How to reach us: Radiation Oncology [facility] [place] [address] fax After office hours phone: [phone] - ask for radiation oncology doctor bronze plater Radiation Oncology [address] [address] documented in this encounter Progress Notes * Christine Fernando RN - 10/05/2014 2:22 PM EDT Radiation Oncology Nurse Note [place], [place] See AVS for instructions provided to patient and his in preparation for Gold pattern maker programer implant procedure scheduled for Sun10/14/14. Prescriptions for Cipro and Dexamethasone sent to [facility]. documented in this encounter Plan of Treatment Upcoming Encounters Date Type Department Care Team (Late st Contact Info) Description 09/19/2023 8:00 AM EDT Infusion Hematology Oncology at [address] [phone] 09/21/2023 9:30 AM EDT Office Visit Hematology [place] [phone] Micha Givens Jr., MD [facility] HEMATOLOGY [place] [address] 09/21/2023 10:30 AM EDT Clinical Support [place]ematology [place] [address] Danii Her RN 09/26/2023 8:30 AM EDT Infusion Hematology Oncology at [address] [phone] 10/03/2023 9:00 AM EDT Office Visit Hematology/Oncology at [address] [phone] Adrianne Ramon MD [facility] [place] [address] Yael Merlos APRN [facility] [place] [address] 10/03/2023 9:30 AM EDT Infusion Hematology Oncology at [address] [phone] 10/10/2023 8:30 AM EDT Infusion Hematology Oncology at [address] [phone] documented as of this encounter Visit Diagnoses Diagnosis Malignant neoplasm of prostate documented in this encounter Care Teams Diesel Locomotive Firer/Fireman Relationship Specialty Start Date End Date Bobby Headley MD [address] [place] [address] PCP - General 01/29/14 11/28/17 documented as of this encounter
--- OUTSIDE RECORDS SUMMARY | 2023-09-17 01:37 | XMS_ITS | Encounter Summary ---
[place] [address] Care Team Providers Care Paint Roller Covers Supervisor Name Role Phone Bobby Headley MD Primary Care Provider [phone] Encounter Details Date Type Department Care Team (Late st Contact Info) Description 10/15/2014 Telephone Radiation Oncology at [address] [phone] Christine Garcia RN Social History Tobacco Use [...] encounter Miscellaneous Notes * Telephone Encounter - Christine Fernando RN - 10/15/2014 6:07 PM EDT Radiation Oncology Post-Procedure Phone Note Name: Cheo Freire A#: [id number] : 1950 Date/Time of Call: 10/15/2014 6:10 PM Procedure: Placement of Gold Coil Fiducials Date of Procedure: 10/14/14 Spoke on the phone to: Patient If not patient, whom? x Message left on answering machine Call attempted - unable to contact patient General condition as stated by the patient or designee: Excellent Good Fair Poor Other x ??? The patient's pain is controlled:no pain YES NO x Comments/intervention: ??? Patient reports tenderness / swelling in perineum/scrotum: YES NO x Coments/intervention: ??? Patient reports changes in urinary symptoms: YES NO x Comments/intervention: ??? Patient has questions re medications: he verbalized correct understanding of taking cipro and dex YES NO x Comments/interventions: ??? Patient knows how to contact us in case of emergency: YES NO x Comments/interventions: Section Radiation Oncology [facility] documented in this encounter Plan of Treatment Upcoming Encounters Date Type Department Care Team (Late st Contact Info) Description 09/19/2023 8:00 AM EDT Infusion Hematology Oncology at [address] [phone] 09/21/2023 9:30 AM EDT Office Visit Hematology [place] [address] Micha Givens Jr., MD [facility] DR HEMATOLOGY [place] [address] 09/21/2023 10:30 AM EDT Clinical Support [place]emat[place] [address] Danii Her RN 09/26/2023 8:30 AM EDT Infusion Hematology Oncology at [address] [phone] 10/03/2023 9:00 AM EDT Office Visit Hematology/Oncology at [address] [phone] Adrianne Ramon MD [facility] DR HEMATOLOGY [place] [address] Yael Merlos, GROUTMAN [facility] HEMATOLOGY [place] [address] 10/03/2023 9:30 AM EDT Infusion Hematology Oncology at [address] [phone] 10/10/2023 8:30 AM EDT Infusion Hematology Oncology at [address] [phone] documented as of this encounter Visit Diagnoses Not on filedocumented in this encounter Care Teams Paint Roller Covers Supervisor Relationship Specialty Start Date End Date Bobby Headley MD [address] [place] [address] PCP - General 01/29/14 11/28/17 documented as of this encounter
--- OUTSIDE RECORDS SUMMARY | 2023-09-17 01:37 | XMS_ITS | Encounter Summary ---
[place] [address] Care Team Providers Care Lip Cutter And Scorer Name Role Phone Bobby Headley MD Primary Care Provider [phone] Encounter Details Date Type Department Care Team (Late st Contact Info) Description 12/10/2014 11:45 AM EDT Office Visit Radiation Oncology at [address] [phone] Nitin Stauffer MD [address] [place] [address] DR RADIATION ONCOLOGY [place], [place] [id number] Cancer of prostate with intermediate recurrence risk (stage T2b-c or Cierra 7 or PSA 10-20) Social History Tobacco [...] Sign Reading Time Taken Comments Blood Pressure 133/75 12/10/2014 11:00 AM EDT Pulse 65 12/10/2014 11:00 AM EDT Temperature - - Respiratory Rate - - Oxygen Saturation 100% 12/10/2014 11:00 AM EDT Inhaled Oxygen Concentration - - Weight 90.1 kg (198 lb 9.6 oz) 12/10/2014 11:00 AM EDT Height - - Body Mass Index 30.2 03/04/2014 3:22 PM EST documented in this encounter Patient Instructions * Patient Instructions* Nitin Stauffer MD - 12/10/2014 11:09 AM EDT Dear Mr. Freire, I believe that overall [...] Uncontrollable bleeding A Radiation Oncology doctor is procurement professional after our normal hours and on weekends. To call for urgent medical issues from radiation treatments that can not wait until normal business hours, please call and have the dielectric testing machine operator page the Radiation Oncologist procurement professional. Nitin Ramirez MD documented in this encounter Progress Notes * Nitin Stauffer MD - 12/10/2014 11:08 AM EDT [facility] On Treatment Visit Patient ID: Cheo Freire is a 64 y.o. 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 Concurrent Therapy: ST-ADT, Lupron #1 given 09/29/14 Plan Details: Daily Dose: 1.8 Gy Current Dose: 21.6 Gy in 12 fractions Planned Dose: 70.2 Gy in 39 fractions to the proximal SV and prostate 79.2 Gy in 44 fractions to the prostate Subjective / Interval History: Gen - No changes since last seen. Minimal hot flashes. - Reports nocturia x 0-1/night at baseline. GI - No diarrhea. KPS: 100 Pain Assessment: Pain score today is 0/10. Objective: BP 133/75 mmHg Pulse 65 Wt 90.084 kg (198 lb 9.6 oz) SpO2 100% General - appears well, no [...] 8:00 AM EDT Infusion Hematology Oncology at [address] [phone] 09/21/2023 9:30 AM EDT Office Visit [place] [address] Micha Givens Jr., MD [facility] DR HEMATOLOGY [place] [address] 09/21/2023 10:30 AM EDT Clinical Support [place] [address] Danii Her RN 09/26/2023 8:30 AM EDT Infusion Hematology Oncology at [address] [phone] 10/03/2023 9:00 AM EDT Office Visit Hematology/Oncology at [address] [phone] Adrianne Ramon MD [facility] DR HEMATOLOGY [place] [address] Yael Merlos APRN [facility] HEMATOLOGY [place] [address] 10/03/2023 9:30 AM EDT Infusion Hematology Oncology at [address] [phone] 10/10/2023 8:30 AM EDT Infusion Hematology Oncology at [address] [phone] documented as of this encounter Visit Diagnoses Diagnosis Cancer of prostate with intermediate recurrence risk (stage T2b-c or Cierra 7 or PSA 10-20) Malignant neoplasm of prostate documented in this encounter Care Teams Lip Cutter And Scorer Relationship Specialty Start Date End Date Bobby Headley MD [address] [place] [address] PCP - General 01/29/14 11/28/17 documented as of this encounter
--- OUTSIDE RECORDS SUMMARY | 2023-09-17 01:37 | XMS_ITS | Encounter Summary ---
[place] [address] Care Team Providers Care Instrument Operator Name Role Phone Bobby Headley MD Primary Care Provider [phone] Encounter Details Date Type Department Care Team (Late st Contact Info) Description 10/21/2014 11:00 AM EDT Ancillary Appointment Radiation Oncology at [address] [phone] Nitin Stauffer MD [address] [place] [address] DR RADIATION ONCOLOGY [place], [place] [id number] Social History Tobacco Use Types Packs/Day Years [...] * Patient Instructions* Christine Fernando RN - 10/21/2014 11:28 AM EDT General instructions for Radiation therapy Radiation Oncology Team Radiation Oncologist -The doctor who will direct all aspects of your radiation treatments Nurse Practitioner - They assist your doctor in treating your side effects and with follow up appointments. Registered Nurse - They nancy you in learining about you radaiton treatments, , and things you can do to help manage the side effects. Tankage Supervisor - They take the doctors radiation prescription and customize it into doses (or days of treatments) specific for you. Physicist - They make sure all the machines are operating correctly and double check calculations for your treatment. Radiation Technologists - They operate the machines which deliver your radiation. You see them daily and they schedule your treatments. Simulation CT/ Planning Session Your first step after deciding to start radiation treatments is done on a special CAT scanner in the radiation department. The images obtained are used to plan your treatments. This may be scheduled the same day you meet your doctor or in a separate visit. This usually takes between 30 minutes to one hour. You may need an IV for contrast. If so our nurse will let you know that day along with any other special instructions. During this visit we may devika Your skin with a tiny ???tattoos?? , take pictures or make special molds or masks to help us place you in the exact treatment position every day. After this session it takes up to two weeks for your plan to be developed and checked by your doctor, the dosimetrists and the physicist. Skin Care - Your nurse will provide you with the necessary creams and supplies as you need them during your treatments. Please make sure you keep the treatment area clean and dry. Be sure to notice if your clothing rubs or digs into the treatment area and try to wear clothes which are less abrasive, like cotton or loose fitting. Do not use harsh soaps, ointments, deodorants or tapes in the treatment area unless directed by your nurse or doctor. Keep the treatment area out of the sun during treatments. General precautions DO NOT USE heating pads, hot water bottles, hot poultices, heat lamps, heat in any form, or ice packs to the area of your body being treated. It is common to start feeling fatigue after a few weeks of being treated. You can help minimize this by getting regular exercise or walking and getting plenty of rest. In general a well balanced diet is recommended. The lens polisher and nurse will inform you of any special diet requirements. Avoid shaving the treatment area with a razor. If you must shave use an electric razor. >>>>Please remember: Do not urinate before your radiatioin treatment. Try to have a comfortably full bladder if possible. This will help reduce side effects on the long run. If you have any questions or concerns about these directions,please inform your nurse. >>> >Diarrhea management for patients receiving pelvic radiation: Follow a low roughage, low fiber diet.Also avoid any foods/beverages with high acid content. For example:Tomatoes, citrus and vinegar. Drink plenty of water;8-10 glasses/day Take 1 imodium tablet after each loose watery stool. Do not take more than 8 tabs per day. Notify physician if diarrhea is not relieved after 8 tabs. Contact numbers Section of Radiation Oncology Our normal business hours are: Sunday - Sunday 8 AM to 5 PM [facility] phone# [phone] [facility] [address] If you have questions about your radiation appointments please ask to speak to one of our secretarystaff. If you have questions for a nurse/doctor about radiation treatments, radiation side effects or you are not feeling well it is best to call early in the day. This allows a nurse to return your call by5 PM the same day. If you call after 4 PM, a nurse will return your call by 5 PM the following day unless it is emergent. If you experience any of the following you need to seek emergency care immediately by calling 911 1. Sudden and unexpected breathing difficulty without any exertion 2. Sudden onset of chest pain 3. Sudden onset of severe pain or uncontrolled pain 4. Sudden onset of severe weakness and/or unable to ambulate 5. Sudden new onset of a seizure 6. Fall resulting in injury A Radiation Oncology doctor is collection systems consultant after our normal hours and on weekends. To call for urgent medical issues from radiation treatments that can not wait until normal business hours, please call for either location and have the pulley mortiser operator page the Radiation Oncologist in call. documented in this encounter Progress Notes * Nitin Stauffer MD - 10/21/2014 11:16 AM EDT Simulation Note for External Beam Radiation Treatment Planning [facility] Bolivar Freire is a 64 y.o. year old male with intermediate risk prostate cancer who was simulated for definitive radiotherapy to his prostate today. No changes were made from the plan as documented in the original simulation order and instructions. Briefly, a 2.5mm slice thickness CT scan of the patient's pelvis was then obtained. This scan was performed to delineate both target volumes and organs/structures at risk. These images will be used to create a customized treatment plan employing multileaf collimators and beams-eye view to treat the target to prescription dose while maximally sparing organs at risk, with the overall goal of maximizing the likelihood of a favorable disease response while minimizing the likelihood of any short term side effects or mcfp complications of therapy. I anticipate his prescription dose will be 79.2 Gy to the prostate, delivered in daily 1.8 Gy fractions over the course of 9 weeks. Anticipate therapy to begin within the next 10 days. Furthermore, I anticipate this patient will require IMRT or VMAT treatment planning and delivery asthe critical treatment volume of interest (in this case, the prostate) is/are irregular and in close proximity to sensitive structures which must be protected (including his rectum, bladder, femoral heads, and penile bulb). The patient tolerated this procedure well, and was provided instructions with regard to upcoming appointments. documented in this encounter Plan of Treatment Upcoming Encounters Date Type Department Care Team (Late st Contact Info) Description 09/19/2023 8:00 AM EDT Infusion Hematology Oncology at [address] [phone] 09/21/2023 9:30 AM EDT Office Visit Hematology [place] [address] Micha Givens Jr., MD [facility] [address] [place] [address] 09/21/2023 10:30 AM EDT Clinical Support Hematology [place] [address] Danii Her RN 09/26/2023 8:30 AM EDT Infusion Hematology Oncology at [address] [phone] 10/03/2023 9:00 AM EDT Office Visit Hematology/Oncology at [address] [phone] Adrianne Ramon MD [facility] [address] [place] [address] Yael Merlos APRN [facility] [place] [address] 10/03/2023 9:30 AM EDT Infusion Hematology Oncology at [address] [phone] 10/10/2023 8:30 AM EDT Infusion Hematology Oncology at [address] [phone] documented as of this encounter Visit Diagnoses Not on filedocumented in this encounter Care Teams Instrument Operator Relationship Specialty Start Date End Date Bobby Headley MD [address] [place] [address] PCP - General 01/29/14 11/28/17 documented as of this encounter
--- OUTSIDE RECORDS SUMMARY | 2023-09-17 01:37 | XMS_ITS | Encounter Summary ---
[place] [address] Care Team Providers Care Terrazzo Tile Setter Name Role Phone Bobby Headley MD Primary Care Provider [phone] Reason for Visit * Reason Comments On Treatment Visit Encounter Details Date Type Department Care Team (Late st Contact Info) Description 12/03/2014 1:15 PM EDT Office Visit Radiation Oncology at [address] [phone] Nitin Stauffer MD [address] [place] [address] DR [place] [address] Cancer of prostate with intermediate recurrence risk (stage T2b-c or [place] 7 or PSA 10-20) Social History Tobacco [...] Sign Reading Time Taken Comments Blood Pressure 134/74 12/03/2014 1:00 PM EDT Pulse 72 12/03/2014 1:00 PM EDT Temperature 36.8 ??C (98.2 ??F) 12/03/2014 1:00 PM ED T Respiratory Rate 16 12/03/2014 1:00 PM EDT Oxygen Saturation 99% 12/03/2014 1:00 PM EDT Inhaled Oxygen Concentration - - Weight 90 kg (198 lb 6.4 oz) 12/03/2014 1:00 PM EDT Height - - Body Mass Index 30.17 03/04/2014 3:22 PM EST documented in this encounter Patient Instructions * Patient Instructions* Nitin Stauffer MD - 12/03/2014 1:15 PM EDT Dear Mr. Freire, I believe that [...] Uncontrollable bleeding A Radiation Oncology doctor is education program coordinator after our normal hours and on weekends. To call for urgent medical issues from radiation treatments that can not wait until normal business hours, please call and have the freight brake operator page the Radiation Oncologist education program coordinator. Nitin Ramirez MD documented in this encounter Progress Notes * Nitin Stauffer MD - 12/03/2014 1:14 PM EDT [facility] On Treatment Visit Patient ID: Cheo Freire is a 64 y.o. 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 Concurrent Therapy: ST-ADT, Lupron #1 given 09/29/14 Plan Details: Daily Dose: 1.8 Gy Current Dose: 12.6 Gy in 7 fractions Planned Dose: 70.2 Gy in 39 fractions to the proximal SV and prostate 79.2 Gy in 44 fractions to the prostate Subjective / Interval History: Gen - No changes since last seen - Reports nocturia x 0-1/night at baseline. KPS: 100 Pain Assessment: Pain score today is 0/10. Objective: BP 134/74 mmHg Pulse 72 Temp(Src) 36.8 ??C (98.2 ??F) Resp 16 Wt 89.994 kg (198 lb 6.4 oz) SpO2 99% General - [...] AM EDT Infusion Hematology Oncology at [address] [phone] 09/21/2023 9:30 AM EDT Office Visit Hematology [place] [address] Micha Givens Jr., MD [facility] DR [place] [address] 09/21/2023 10:30 AM EDT Clinical Support Hematology [place] [address] Danii Her RN 09/26/2023 8:30 AM EDT Infusion Hematology Oncology at [address] [phone] 10/03/2023 9:00 AM EDT Office Visit Hematology/Oncology at [address] [phone] Adrianne Ramon MD [facility] [place] [address] Yael Merlos APRN [facility] [place] [address] 10/03/2023 9:30 AM EDT Infusion Hematology Oncology at [address] [address] 10/10/2023 8:30 AM EDT Infusion Hematology Oncology at [address] [phone] documented as of this encounter Visit Diagnoses Diagnosis Cancer of prostate with intermediate recurrence risk (stage T2b-c or [place] 7 or PSA 10-20) Malignant neoplasm of prostate documented in this encounter Care Teams Terrazzo Tile Setter Relationship Specialty Start Date End Date Bobby Headley MD [address] [place] [address] PCP - General 01/29/14 11/28/17 documented as of this encounter
--- OUTSIDE RECORDS SUMMARY | 2023-09-17 01:37 | XMS_ITS | Encounter Summary ---
[place] [address] Care Team Providers Care Leather Craftsman Name Role Phone Bobby Headley MD Primary Care Provider [phone] Encounter Details Date Type Department Care Team ([facility] Contact Info) Description 03/04/2014 4:07 PM EST - 03/04/2014 11:59 PM EST Hospital Encounter [place] [phone] Testis mass Social History Tobacco Use Types Packs/Day Years Used Date Smoking Tobacco: Former Cigarettes Sex and Gender Information Value Date Recorded Sex Assigned at Not on file Gender Identity Not on file Sexual Orientation Not on file documented as of this encounter Medications at Time of Discharge Medication Sig Dispensed Refills Start Date End Date aspirin 81 mg Tablet, Chewable Take 81 mg by mouth daily. lisinopril (PRINIVIL;ZESTRIL) 10 mg Tablet Take 10 mg by mouth daily. 09/29/2014 documented as of this encounter Plan of Treatment Upcoming Encounters Date Type Department Care Team (Late Contact Info) Description 09/19/2023 8:00 AM EDT Infusion Hematology Oncology at [address] [phone] 09/21/2023 9:30 AM EDT Office Visit Hematology [place] [phone] Landry Givens Jr., MD [facility] H[place]ATOLOG[place] [address] 09/21/2023 10:30 AM EDT Clinical Support Hematology [place] [address] Danii Her RN 09/26/2023 8:30 AM EDT Infusion Hematology Oncology at [address] [phone] 10/03/2023 9:00 AM EDT Office Visit Hematology/Oncology at [address] [phone] Adrianne Ramon MD [facility] DR [place] [address] Yael Merlos APRN [facility] DR HEMAT[place] [address] 10/03/2023 9:30 AM EDT Infusion Hematology Oncology at [address] [phone] 10/10/2023 8:30 AM EDT Infusion Hematology Oncology at [address] [phone] documented as of this encounter Procedures Procedure Name Priority Date/Time Associated Diagnosis Comments US SCROTUM Routine 03/04/2014 4:46 PM EST Testis mass documented in this encounter Results * US scrotum (03/04/2014 4:46 PM EST) Anatomical Region Laterality Modality Pelvis Ultrasound 03/04/2014 4:46 PM EST Narrative 03/04/2014 5:00 PM EST Scrotal ?(Signed Final 03/04/2014 05:00 ? pm) Patient Info ID #: ? [id number] ?: ??[birth year] (63 yrs) Name: ? CHEO MORFIN ? Visit Date: 03/04/2014 04:39 pm Performed By Performed By: ?Hannah Wahl RDMS Attending: ? Alexandre OCASIO, Jaime Dumas Referred By: ? LANDRY NUNEZ MD Service(s) Provided ??[facility] - Ultrasound Scrotum and Contents with ?[id number], [id number] ??Vascular - [id number], [id number] Indications ??Evaluate Right testicle hx of testis mass ? change ??in size ??Please send patient back to after US Right Testicle Measurement(cm) ? L: [...] 03/04/2014 05:00 pm) Patient Info ID #: [id number] : [birth year] (63 yrs) Name: CHEO MORFIN Visit Date: 03/04/2014 04:39 pm Performed By Performed By: Hannah Wahl RDMS Attending: Jaime Schroeder MD Referred By: LANDRY NUNEZ MD Service(s) Provided [facility] - Ultrasound Scrotum and Contents with [id number], [id number] Vascular - [id number], [id number] Indications Evaluate Right testicle hx of testis [...] Report 03/04/2014 05:00 pm Landry Nunez MD IMG US GEN ORDERABLE S documented in this encounter Visit Diagnoses Diagnosis Testis mass Other specified disorder of male genital organs documented in this encounter Care Teams Leather Craftsman Relationship Specialty Start Date End Date Bobby Headley MD [address] [place] [address] PCP - General 01/29/14 11/28/17 documented as of this encounter
--- OUTSIDE RECORDS SUMMARY | 2023-09-17 01:37 | XMS_ITS | Encounter Summary ---
Author Organization [facility] [place] [address] Care Team Providers Care Primary Therapist Name Role Phone Bobby Headley MD Primary Care Provider [phone] Encounter Details Date Type Department Care Team (Late st Contact Info) Description 09/01/2014 [place] [phone] Micha Nunez MD [facility] [place] [address] Social History Tobacco Use Types Packs/Day Years [...] AM EDT Infusion Hematology Oncology at [address] [phone] 09/21/2023 9:30 AM EDT Office Visit [place]ematology [place] [phone] Micha Givens Jr., MD [facility] [place] [address] 09/21/2023 10:30 AM EDT Clinical Support Hematology [place] [phone] Danii Her RN 09/26/2023 8:30 AM EDT Infusion Hematology Oncology at [address] [phone] 10/03/2023 9:00 AM EDT Office Visit Hematology/Oncology at [address] [phone] Adrianne Ramon MD [facility] [place] [address] Yael Merlos APRN [facility] [place] [address] 10/03/2023 9:30 AM EDT Infusion Hematology Oncology at [address] [phone] 10/10/2023 8:30 AM EDT Infusion Hematology Oncology at [address] [phone] documented as of this encounter Procedures Procedure Name Priority Date/Time Associated Diagnosis Comments FILM LIBRARY STORAGE ONLY ULTRASOUND STUDY Routine 09/01/2014 12:10 PM EDT documented in this encounter Results * Film Library- Storage only Ultrasound Study (09/01/2014 12:10 PM EDT) Anatomical Region Laterality Modality Other 09/01/2014 12:1 0 PM EDT Narrative 09/21/2014 12:15 PM EDT This is a Non-reportable exam Procedure Note HERB, UNSIGNED REPORT - 09/21/2014 This is a Non-reportable exam Micha Nunez MD IMG FILM LIBRARY ORD ERABLES documented in this encounter Visit Diagnoses Not on filedocumented in this encounter Care Teams Primary Therapist Relationship Specialty Start Date End Date Bobby Headley MD [address] [place], [place] [address] PCP - General 01/29/14 11/28/17 documented as of this encounter
--- OUTSIDE RECORDS SUMMARY | 2023-09-17 01:37 | XMS_ITS | Encounter Summary ---
Author Organization [facility] [place] [address] Care Team Providers Care Location Director Name Role Phone Bobby Headley MD Primary Care Provider [phone] Encounter Details Date Type Department Care Team (Late st Contact Info) Description 01/12/2015 8:15 AM EST Office Visit Radiation Oncology at [address] [phone] Nitin Stauffer MD [address] [place] [address] DR RADIATION ONCOLOGY [place], [place] [id number] Cancer of prostate with intermediate recurrence risk (stage T2b-c or [place] 7 or PSA 10-20) Social History Tobacco [...] * Patient Instructions* Nitin Stauffer MD - 01/12/2015 8:00 AM EST Dear Mouna, I believe that overall you are doing [...] Uncontrollable bleeding A Radiation Oncology doctor is conference reservationist after our normal hours and on weekends. To call for urgent medical issues from radiation treatments that can not wait until normal business hours, please call and have the logging shovel operator page the Radiation Oncologist conference reservationist. Nitin Ramirez MD documented in this encounter Progress Notes * Nitin Stauffer MD - 01/12/2015 7:58 AM EST [facility] On Treatment Visit Patient ID: Cheo Freire is a 64 y.o. 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 Concurrent Therapy: ST-ADT, Lupron #1 given 09/29/14 Lupron #2, given 12/22/14 Plan Details: Daily Dose: 1.8 Gy Current Dose: 63 Gy in 35 fractions Planned Dose: 70.2 Gy in 39 fractions to the proximal SV and prostate 79.2 Gy in 44 fractions to the prostate Subjective / Interval History: Gen - No changes since last seen. Minimal hot flashes. - Reports nocturia 1-3x / night (slight increase from 0-1/night at baseline). Frequency, weak stream but not bothersome. GI - Blood in stools have essentially resolved, taking miralax x 1/day. KPS: 100 Pain Assessment: Pain score today is 0/10. Objective: There were no vitals taken for this visit. General - appears well, no distress. Sitting [...] AM EDT Infusion Hematology Oncology at [address] [phone] 09/21/2023 9:30 AM EDT Office Visit Hematology [place] [address] Micha Givens Jr., MD [facility] DR [place] [address] 09/21/2023 10:30 AM EDT Clinical Support Hematology [place] [address] Danii Her RN 09/26/2023 8:30 AM EDT Infusion Hematology Oncology at [address] [phone] 10/03/2023 9:00 AM EDT Office Visit Hematology/Oncology at [address] [phone] Adrianne Ramon MD [facility] [place] [address] Yael Merlos, KARLA [facility] [place] [address] 10/03/2023 9:30 AM EDT Infusion Hematology Oncology at [address] [phone] 10/10/2023 8:30 AM EDT Infusion Hematology Oncology at [address] [phone] documented as of this encounter Visit Diagnoses Diagnosis Cancer of prostate with intermediate recurrence risk (stage T2b-c or [place] 7 or PSA 10-20) Malignant neoplasm of prostate documented in this encounter Care Teams Location Director Relationship Specialty Start Date End Date Bobby Headley MD [address] [place] [address] PCP - General 01/29/14 11/28/17 documented as of this encounter
--- OUTSIDE RECORDS SUMMARY | 2023-09-17 01:37 | XMS_ITS | Encounter Summary ---
[place] [address] Care Team Providers Care Risk And Insurance Manager Name Role Phone Bobby Headley MD Primary Care Provider [phone] Encounter Details Date Type Department Care Team (Late Contact Info) Description 09/24/2014 4:13 PM EDT - 09/24/2014 11:59 PM EDT Hospital [place] [phone] Tk Vergara MD [address] [place] [address] Discharge Disposition: Home Social History Tobacco Use [...] AM EDT Infusion Hematology Oncology at [address] [place] [address] [phone] 09/21/2023 9:30 AM EDT Office Visit [place] [phone] Micha Givens Jr., MD [facility] [place] [address] 09/21/2023 10:30 AM EDT Clinical Support [place]ematology [place] [address] Danii Her RN 09/26/2023 8:30 AM EDT Infusion Hematology Oncology at [address] [phone] 10/03/2023 9:00 AM EDT Office Visit Hematology/Oncology at [address] [phone] Adrianne Ramon MD [facility] [address] [place] [address] Yael Merlos APRN [facility] [address] [place] [address] 10/03/2023 9:30 AM EDT Infusion Hematology Oncology at [address] [phone] 10/10/2023 8:30 AM EDT Infusion Hematology Oncology at [address] [phone] documented as of this encounter Procedures Procedure Name Priority Date/Time Associated Diagnosis Comments SURGICAL PATHOLOGY REPORT Routine 09/24/2014 10:06 AM EDT documented in this encounter Results * Surgical Pathology Report (09/24/2014 10:06 AM EDT) FINAL DIAGNOSIS (AP) ? [facility] ? Provider: ?? TK VERGARA ?? Pt. Name: ?? CHEO MORFIN ? Acc #: ?[id number] ?Pt. ? Col Date: ?? 09/24/2014 ?/Sex: ?1950,(64 years),Male ? Rec Date: ?? 09/25/2014 ?LOC: ?OPW ? SURGICAL PATHOLOGY ? DIAGNOSIS ? CONSULTATION CASE ? Outside slides labeled [id number], collection date 09/01/2014 ? A - Prostatic core needle biopsy, right base: ? Benign prostatic tissue. ? B - Prostatic core needle biopsy, right lateral mid: ? Benign prostatic tissue. ? C - Prostatic core needle biopsy, right medial mid: ? Benign prostatic tissue. ? D - Prostatic core needle biopsy, right lateral apex: ? Benign prostatic tissue. ? E - Prostatic core needle biopsy, right mid apex: ? Adenocarcinoma, [place] grade 4+3, discontinuously involving ? approximately 45% of the single biopsy core. ? F - Prostatic core needle biopsy, left base: ? Benign prostatic tissue. ? G - Prostatic core needle biopsy, left lateral mid: ? Benign prostatic tissue. ? H - Prostatic core needle biopsy, left medial mid: ? Benign prostatic tissue. ? I - Prostatic core needle biopsy, left lateral apex: ? Benign prostatic tissue. ? J - Prostatic core needle biopsy, left mid apex: ? Benign prostatic tissue. ? [facility] ? Provider: ?? TK VERGARA ?? Pt. Name: ?? CHEO MORFIN ? Acc #: ?[id number] ?Pt. ? Col Date: ?? 09/24/2014 ?/Sex: ?1950,(64 years),Male ? Rec Date: ?? 09/25/2014 ?LOC: ?OPW ? SURGICAL PATHOLOGY ? CR-0 ? 09/25/14 ? LLW ? 09/28/14 Verified by: ? Stacey OCASIO, Fletcher Jimenez ? Pathologist ? (Electronic Signature) ? The attending pathologist whose signature appears on this report has ? reviewed all diagnostic slides and has edited the gross and/or ? microscopic portion of the report in rendering the final pathologic ? diagnosis. ? ADDITIONAL STUDIES ? Slides reviewed, microscopic description not recorded. ? Whole slide scan: ?[id number] ? GROSS DESCRIPTION ? [facility] ([facility]) pathology slide(s) are ? reviewed. ??Refer to Diagnosis and Specimen Submitted for specific case ? information. ? For the full text of the [facility] report(s) please refer to Non-DH ? Documentation Pathology in the electronic health record (eDH). ? CLINICAL INFORMATION ? Specimen Submitted: ? CONSULTATION CASE ? A - 20 slides labeled [id number], collection date 09/01/2014. ? [id number] ? Report to: ? [facility] ? Surgical Pathology Department ? [facility], [facility], 2nd Floor ? [address] ? [place], [place] ??[address] ? 09/28/2014 3:[address] [facility] 09/24/2014 10:0 6 AM EDT Tk Vergara MD PATHOLOGY/CYTOLOGY O COLIN Performing Organization Address City/State/[facility] Co de Phone Number [facility] [place] [address] documented in this encounter Visit Diagnoses Not on filedocumented in this encounter Care Teams Risk And Insurance Manager Relationship Specialty Start Date End Date Bobby Headley MD [address] [place] [address] PCP - General 01/29/14 11/28/17 documented as of this encounter
--- OUTSIDE RECORDS SUMMARY | 2023-09-17 01:37 | XMS_ITS | Encounter Summary ---
[place] [address] Care Team Providers Care Longwall Foreman Name Role Phone Bobby Headley MD Primary Care Provider [phone] Encounter Details Date Type Department Care Team (Late st Contact Info) Description 09/25/2014 External [place] [phone] Provider, Scanning Social History Tobacco Use Types [...] AM EDT Infusion Hematology Oncology at [address] [phone] 09/21/2023 9:30 AM EDT Office Visit Hematology [place] [phone] Micha Givens Jr., MD [facility] DR HEMATOLOGY [place] [address] 09/21/2023 10:30 AM EDT Clinical Support Hematology [place] [phone] Danii Her RN 09/26/2023 8:30 AM EDT Infusion Hematology Oncology at [address] [phone] 10/03/2023 9:00 AM EDT Office Visit Hematology/Oncology at [address] [phone] Adrianne Ramon MD [facility] DR HEMATOLOGY [place] [address] Yael Merlos APRN [facility] HEMATOLOGY [place] [address] 10/03/2023 9:30 AM EDT Infusion Hematology Oncology at [address] [phone] 10/10/2023 8:30 AM EDT Infusion Hematology Oncology at [address] [phone] documented as of this encounter Procedures Procedure Name Priority Date/Time Associated Diagnosis Comments SURGICAL PATHOLOGY SCAN Routine 09/25/2014 documented in this encounter Results * Scan Doc: Surgical Pathology (09/25/2014) John Vergara MD MEDIA MGR SCAN EXT O RDR/RSLT documented in this encounter Visit Diagnoses Not on filedocumented in this encounter Care Teams Longwall Foreman Relationship Specialty Start Date End Date Bobby Headley MD [address] [place] [address] PCP - General 01/29/14 11/28/17 documented as of this encounter
--- OUTSIDE RECORDS SUMMARY | 2023-09-17 01:37 | XMS_ITS | Encounter Summary ---
[place] [address] Care Team Providers Care Glass Forming Crew Member Name Role Phone Bobby Headley MD Primary Care Provider [phone] Encounter Details Date Type Department Care Team (Late Contact Info) Description 09/30/2014 Orders Only Radiation Oncology at [address] [phone] Nitin Stauffer MD [address] [place] [address] DR RADIATION ONCOLOGY [place], [place] [id number] Social History Tobacco Use Types Packs/Day Years [...] AM EDT Infusion Hematology Oncology at [address] [phone] 09/21/2023 9:30 AM EDT Office Visit [place]ematology [place] [address] Micha Givens Jr., MD [facility] DR [place] [address] 09/21/2023 10:30 AM EDT Clinical Support [place]emat[place] [address] Danii Her, RN 09/26/2023 8:30 AM EDT Infusion Hematology Oncology at [address] [phone] 10/03/2023 9:00 AM EDT Office Visit Hematology/Oncology at [address] [phone] Adrianne Ramon MD [facility] DR [place] [address] Yael Merlos APRN [facility] DR [place] [address] 10/03/2023 9:30 AM EDT Infusion Hematology Oncology at [address] [phone] 10/10/2023 8:30 AM EDT Infusion Hematology Oncology at [address] [phone] documented as of this encounter Visit Diagnoses Not on filedocumented in this encounter Care Teams Glass Forming Crew Member Relationship Specialty Start Date End Date Bobby Headley MD [address] [place] [address] PCP - General 01/29/14 11/28/17 documented as of this encounter
--- OUTSIDE RECORDS SUMMARY | 2023-09-17 01:37 | XMS_ITS | Encounter Summary ---
[place] [address] Care Team Providers Care Lye Boiler Name Role Phone Bobby Headley MD Primary Care Provider Encounter Details Date Type Department Care Team (Late st Contact Info) Description 11/26/2014 9:00 AM EDT Office Visit Radiation Oncology at [address] [phone] Nitin Stauffer MD [address] [place] [address] DR RADIATION ONCOLOGY [place], [place] [phone] Cancer of prostate with intermediate recurrence risk (stage T2b-c or [place] 7 or PSA 10-20) Social History Tobacco [...] Sign Reading Time Taken Comments Blood Pressure 143/79 11/26/2014 8:00 AM EDT Pulse - - Temperature 36.8 ??C (98.2 ??F) 11/26/2014 8:00 AM ED T Respiratory Rate 12 11/26/2014 8:00 AM EDT Oxygen Saturation 98% 11/26/2014 8:00 AM EDT Inhaled Oxygen Concentration - - Weight 91.4 kg (201 lb 9.6 oz) 11/26/2014 8:00 A M EDT Height - - Body Mass Index 30.65 03/04/2014 3:22 PM EST documented in this encounter Patient Instructions * Patient Instructions* Nitin Stauffer MD - 11/26/2014 11:18 AM EDT Dear Mr. Freire, I believe [...] Uncontrollable bleeding A Radiation Oncology doctor is ged preparation teacher after our normal hours and on weekends. To call for urgent medical issues from radiation treatments that can not wait until normal business hours, please call and have the hob mill operator page the Radiation Oncologist ged preparation teacher. Nitin Ramirez MD documented in this encounter Progress Notes * Nitin Stauffer MD - 11/26/2014 11:16 AM EDT [facility] On Treatment Visit Patient ID: Cheo Freire is a 64 y.o. 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 Concurrent Therapy: ST-ADT, Lupron #1 given 09/29/14 Plan Details: Daily Dose: 1.8 Gy Current Dose: 3.6 Gy in 2 fractions Planned Dose: 70.2 Gy in 39ractions to the proximal SV and prostate 70.2 Gy in 44 fractions to the prostate Subjective / Interval History: No changes since last seen; patient started this week. Reports nocturia x 1/night. KPS: 100 Pain Assessment: Pain score today is 0/10. Objective: BP 143/79 mmHg Temp(Src) 36.8 ??C (98.2 ??F) Resp 12 Wt 91.445 kg (201 lb 9.6 oz) SpO2 98% General - appears well, no distress. Sitting [...] AM EDT Infusion Hematology Oncology at [address] [phone] 09/21/2023 9:30 AM EDT Office Visit Hematology [place] [address] Micha Givens Jr., MD [facility] DR [place]AT[place] [address] 09/21/2023 10:30 AM EDT Clinical Support Hematology [place] [phone] Danii Her RN 09/26/2023 8:30 AM EDT Infusion Hematology Oncology at [address] [phone] 10/03/2023 9:00 AM EDT Office Visit Hematology/Oncology at [address] [phone] Adrianne Ramon MD [facility] DR [place] [address] Yael Merlos APRN [facility] [place] [address] 10/03/2023 9:30 AM EDT Infusion Hematology Oncology at [address] [phone] 10/10/2023 8:30 AM EDT Infusion Hematology Oncology at [address] [phone] documented as of this encounter Visit Diagnoses Diagnosis Cancer of prostate with intermediate recurrence risk (stage T2b-c or [place] 7 or PSA 10-20) Malignant neoplasm of prostate documented in this encounter Care Teams Lye Boiler Relationship Specialty Start Date End Date Bobby Headley MD [address] [place] [address] PCP - General 01/29/14 11/28/17 documented as of this encounter
--- OUTSIDE RECORDS SUMMARY | 2023-09-17 01:37 | XMS_ITS | Encounter Summary ---
[place] [address] Care Team Providers Care Engine Cowling Installer Name Role Phone Bobby Headley MD Primary Care Provider Encounter Details Date Type Department Care Team (Late st Contact Info) Description 12/02/2014 Notes Only Radiation Oncology at [address] [phone] Shelley Cason MSW OFFICE OF CARE MANAGEMENT Social History Tobacco [...] Progress Notes * Shelley Cason MSW - 12/03/2014 2:00 PM EDT Reason for Referral: Brief assessment of social and emotional needs. Met with pt after RT on 12-02-14. Social Supports: Pt is and has 4 children who live in the area. Living Situation/Daily Activities/Transportation: He and his manage their daily chores and activities. He lives near this facility and does not expect any problems with transportation. Work/Finances/Insurance: Pt is retired. He does not have any issues with insurance or finances. Advance Directives: Pt indicated he has completed his advance directive and requested a copy for his record. Utilization of Community Resources: Pt agreeable to participate in the [place] [facility]. Provided him with a brochure and will make outreach to Arlyn Gong RN, Chronic Tailor Fitter, [facility]. Adjustment to Illness/Mental Health Issues: Pt Reports he keeps busy with his grandchildren and traveling to their sporting events. He feels he is coping well. Identified Needs: Pt did not identify and specific needs at this time. Referrals: VOP Plan: Informed pt of my availability and will follow to assist as indicated. documented in this encounter Plan of Treatment Upcoming Encounters Date Type Department Care Team (Late st Contact Info) Description 09/19/2023 8:00 AM EDT Infusion Hematology Oncology at [address] [phone] 09/21/2023 9:30 AM EDT Office Visit Hematology [place] [address] Micha Givens Jr., MD [facility] [place] [address] 09/21/2023 10:30 AM EDT Clinical Support Hematology [place] [address] Danii Her RN 09/26/2023 8:30 AM EDT Infusion Hematology Oncology at [address] [phone] 10/03/2023 9:00 AM EDT Office Visit Hematology/Oncology at [address] [phone] Adrianne Ramon MD [facility] [place] [address] Yael Merlos, PREBOARDER [facility] [place] [address] 10/03/2023 9:30 AM EDT Infusion Hematology Oncology at [address] [phone] 10/10/2023 8:30 AM EDT Infusion Hematology Oncology at [address] [phone] documented as of this encounter Visit Diagnoses Not on filedocumented in this encounter Care Teams Engine Cowling Installer Relationship Specialty Start Date End Date Bobby Headley MD [address] [place] [address] PCP - General 01/29/14 11/28/17 documented as of this encounter
--- OUTSIDE RECORDS SUMMARY | 2023-09-17 01:37 | XMS_ITS | Encounter Summary ---
[place] [address] Care Team Providers Care Epoxy Coatings Installer Name Role Phone Bobby Headley MD Primary Care Provider [phone] Encounter Details Date Type Department Care Team (Late st Contact Info) Description 10/14/2014 8:30 AM EDT Procedure visit Radiation Oncology at [address] [phone] Nitin Stauffer MD [address] [place] [address] DR RADIATION ONCOLOGY [place], [place] [id number] Cancer of prostate with intermediate recurrence risk (stage T2b-c or [place] 7 or PSA 10-20) Discharge Disposition: Home [...] Sign Reading Time Taken Comments Blood Pressure 161/83 10/14/2014 9:50 AM EDT Pulse 65 10/14/2014 9:50 AM EDT Temperature 36.9 ??C (98.5 ??F) 10/14/2014 8:21 AM ED T Respiratory Rate 18 10/14/2014 8:21 AM EDT Oxygen Saturation 95% 10/14/2014 9:50 AM EDT Inhaled Oxygen Concentration - - Weight - - Height - - Body Mass Index - - documented in this encounter Progress Notes * Nitin Stauffer MD - 10/14/2014 10:37 AM EDT Identification: Cheo Freire is a 64 y.o. year old gentleman with intermediate risk prostate cancer, who has consented for external beam radiotherapy. Procedure: Gold coil fiducial marker placement within the prostate for radiation localization during therapy. Physician: Nitin Stauffer MD Anesthesia: Local lidocaine with bicarbonate Description of Procedure: Cheo Freire was placed in the lithotomy position. A transrectal ultrasound probe was placed within the rectum and stabilized using the placement positioning system. The perineum was prepped, anesthetized with subcutaneous lidocaine, and draped with the graticule fixed in position on the ultrasound stabilizer. A needle was then placed trans-perineally into the right lobe of the prostate underultrasound guidance with the graticule serving for stabilization and position verification. The ultrasound was used to monitor the advancement of the needle, and lidocaine was locally applied as the needle was advanced. Once it was properly positioned, a 2.0 cm length of gold coil was placed withinthe right lobe, and the needle was removed. This procedure was repeated within the left prostate. Following placement of both coils, the ultrasound probe and the stabilizer system were removed. The patient was then discharged. Complications: None Estimated Blood Loss: scant Disposition: Cheo Freire tolerated the treatment well. He described mild discomfort during the course of the procedure, at a level of 2/10, primarily related to placement of the rectal probe, and also with needle insertion through the perineum. He will return shortly for CT-based simulation and treatment planning, and a referral has been placed for the patient to undergo MRI of the prostate at [facility]. * Christine Fernando RN - 10/14/2014 8:26 AM EDT Radiation Oncology Procedure Nursing Note Procedure: Cold coil implant by Dr Stauffer Time of patient arrival to clinic: See flowsheet for all vital signs and medication list updated info. Premedications: [x]He confirms starting cipro yesterday and will continue twice a day and will complete it tomorrowevening. [x]He administered fleets enema as directed; last night and this AM, with good results. Patient states all his questions are answered and he is ready to proceed. Procedure Time out/start time:8:55 Assessment:Patient tolerated procedure well with overall pain score of 2/10 during procedure. Time procedure ended: 9:45 After procedure,he ambulated to dressing room, gait steady. His medications were reviewed w/ him: [x]Continue cipro 1 pill twice a day today and tomorrow. [x]Take dexamethasone (steroid)as previously instructed (2mg twice a day for 3 days and once a day for 3 days). [x]He may take Tylenol or advil as needed for mild discomfort. He has the [facility] phone number and verbalized understanding to ask for the paving contractor radiation oncologist if he needs to after clinic hours. Time of discharge: 10:00 vital signs stable,and gait steady and dressed himself. Dr Stauffer saw him briefly before discharge. documented in this encounter Plan of Treatment Upcoming Encounters Date Type Department Care Team (Late st Contact Info) Description 09/19/2023 8:00 AM EDT Infusion Hematology Oncology at [address] [phone] 09/21/2023 9:30 AM EDT Office Visit Hematology [place] [address] Micha Givens Jr., MD [facility] DR [place] [address] 09/21/2023 10:30 AM EDT Clinical Support Hematology [place] [address] Danii Her RN 09/26/2023 8:30 AM EDT Infusion Hematology Oncology at [address] [phone] 10/03/2023 9:00 AM EDT Office Visit Hematology/Oncology at [address] [phone] Adrianne Ramon MD [facility] DR [place] [address] Yael Merlos APRN [facility] [place] [address] 10/03/2023 9:30 AM EDT Infusion Hematology Oncology at [address] [phone] 10/10/2023 8:30 AM EDT Infusion Hematology Oncology at [address] [phone] documented as of this encounter Visit Diagnoses Diagnosis Cancer of prostate with intermediate recurrence risk (stage T2b-c or [place] 7 or PSA 10-20) Malignant neoplasm of prostate documented in this encounter Care Teams Epoxy Coatings Installer Relationship Specialty Start Date End Date Bobby Headley MD [address] [place] [address] PCP - General 01/29/14 11/28/17 documented as of this encounter
--- OUTSIDE RECORDS SUMMARY | 2023-09-17 01:37 | XMS_ITS | Encounter Summary ---
[place] [address] Care Team Providers Care Corporate Giving Manager Name Role Phone Bobby Headley MD Primary Care Provider [phone] Encounter Details Date Type Department Care Team (Late st Contact Info) Description 12/24/2014 8:15 AM EST Office Visit Radiation Oncology at [address] [phone] Nitin Stauffer MD [address] [place] [address] DR RADIATION ONCOLOGY [place], [place] [id number] Cancer of prostate with intermediate recurrence risk (stage T2b-c or [place] 7 or PSA 10-20) Social History Tobacco [...] Sign Reading Time Taken Comments Blood Pressure 137/79 12/24/2014 8:00 AM EST Pulse 64 12/24/2014 8:00 AM EST Temperature 36.4 ??C (97.5 ??F) 12/24/2014 8:00 AM ES T Respiratory Rate 18 12/24/2014 8:00 AM EST Oxygen Saturation 100% 12/24/2014 8:00 AM EST Inhaled Oxygen Concentration - - Weight - - Height - - Body Mass Index - - documented in this encounter Patient Instructions * Patient Instructions* Nitin Stauffer MD - 12/24/2014 8:16 AM EST Dear Mr. Freire, I believe [...] Uncontrollable bleeding A Radiation Oncology doctor is environmental sampler after our normal hours and on weekends. To call for urgent medical issues from radiation treatments that can not wait until normal business hours, please call and have the black mill operator page the Radiation Oncologist environmental sampler. Nitin Ramirez MD documented in this encounter Progress Notes * Nitin Stauffer MD - 12/24/2014 8:16 AM EST [facility] On Treatment Visit Patient ID: Cheo Freire is a 64 y.o. 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 Concurrent Therapy: ST-ADT, Lupron #1 given 09/29/14 Plan Details: Daily Dose: 1.8 Gy Current Dose: 39.6 Gy in 22 fractions Planned Dose: 70.2 Gy in 39 fractions to the proximal SV and prostate 79.2 Gy in 44 fractions to the prostate Subjective / Interval History: Gen - No changes since last seen. Minimal hot flashes. - Reports nocturia x 0-1/night at baseline. Did not get up last night at all. GI - No diarrhea. KPS: 100 Pain Assessment: Pain score today is 0/10. Objective: BP 137/79 mmHg Pulse 64 Temp(Src) 36.4 ??C (97.5 ??F) (Oral) Resp 18 SpO2 100% General - appears well, no [...] AM EDT Infusion Hematology Oncology at [address] [phone] 09/21/2023 9:30 AM EDT Office Visit Hematology [place] [address] Micha Givens Jr., MD [facility] [address] [place] [address] 09/21/2023 10:30 AM EDT Clinical Support Hematology [place] [address] Danii Her RN 09/26/2023 8:30 AM EDT Infusion Hematology Oncology at [address] [address] 10/03/2023 9:00 AM EDT Office Visit Hematology/Oncology at [address] [phone] Adrianne Ramon MD [facility] [address] [place] [address] Yael Merlos APRN [facility] [place] [address] 10/03/2023 9:30 AM EDT Infusion Hematology Oncology at [address] [phone] 10/10/2023 8:30 AM EDT Infusion Hematology Oncology at [address] [phone] documented as of this encounter Visit Diagnoses Diagnosis Cancer of prostate with intermediate recurrence risk (stage T2b-c or [place] 7 or PSA 10-20) Malignant neoplasm of prostate documented in this encounter Care Teams Corporate Giving Manager Relationship Specialty Start Date End Date Bobby Headley MD [address] [place] [address] PCP - General 01/29/14 11/28/17 documented as of this encounter
--- OUTSIDE RECORDS SUMMARY | 2023-09-17 01:37 | XMS_ITS | Encounter Summary ---
[place] [address] Care Team Providers Care Filling Layer Up Name Role Phone Bobby Headley MD Primary Care Provider [phone] Encounter Details Date Type Department Care Team (Late st Contact Info) Description 12/17/2014 8:15 AM EDT Office Visit Radiation Oncology at [address] [phone] Nitin Stauffer MD [address] [place] [address] DR RADIATION ONCOLOGY [place], [place] [id number] Cancer of prostate with intermediate recurrence risk (stage T2b-c or [place] 7 or PSA 10-20) Social History Tobacco [...] Sign Reading Time Taken Comments Blood Pressure 143/91 12/17/2014 8:00 AM EDT Pulse 61 12/17/2014 8:00 AM EDT Temperature 36.5 ??C (97.7 ??F) 12/17/2014 8:00 AM ED T Respiratory Rate 16 12/17/2014 8:00 AM EDT Oxygen Saturation 98% 12/17/2014 8:00 AM EDT Inhaled Oxygen Concentration - - Weight 90.3 kg (199 lb) 12/17/2014 8:00 AM EDT Height - - Body Mass Index 30.26 03/04/2014 3:22 PM EST documented in this encounter Patient Instructions * Patient Instructions* Nitin Stauffer MD - 12/17/2014 8:11 AM EDT Dear Mr. Freire, I believe [...] Uncontrollable bleeding A Radiation Oncology doctor is oil pump station operator chief after our normal hours and on weekends. To call for urgent medical issues from radiation treatments that can not wait until normal business hours, please call and have the pneumatic system conveyor operator page the Radiation Oncologist oil pump station operator chief. Nitin Ramirez MD documented in this encounter Progress Notes * Nitin Stauffer MD - 12/17/2014 8:10 AM EDT [facility] On Treatment Visit Patient ID: Cheo Freire is a 64 y.o. 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 Concurrent Therapy: ST-ADT, Lupron #1 given 09/29/14 Plan Details: Daily Dose: 1.8 Gy Current Dose: 30.6 Gy in 17 fractions Planned Dose: 70.2 Gy in 39 [...] Pain score today is 0/10. Objective: BP 143/91 mmHg Pulse 61 Temp(Src) 36.5 ??C (97.7 ??F) (Oral) Resp 16 Wt 90.266 kg (199 lb) SpO2 98% General - appears well, no [...] 8:00 AM EDT Infusion Hematology Oncology at [address] [phone] 09/21/2023 9:30 AM EDT Office Visit Hematology [place] [address] Micha Givens Jr., MD [facility] [place] [address] 09/21/2023 10:30 AM EDT Clinical Support Hematology [place] [address] Danii Her RN 09/26/2023 8:30 AM EDT Infusion Hematology Oncology at [address] [phone] 10/03/2023 9:00 AM EDT Office Visit Hematology/Oncology at [address] [phone] Adrianne Ramon MD [facility] [place] [address] Yael Merlos APRN [facility] [place] [address] 10/03/2023 9:30 AM EDT Infusion Hematology Oncology at [address] [phone] 10/10/2023 8:30 AM EDT Infusion Hematology Oncology at [address] [phone] documented as of this encounter Visit Diagnoses Diagnosis Cancer of prostate with intermediate recurrence risk (stage T2b-c or Cierra 7 or PSA 10-20) Malignant neoplasm of prostate documented in this encounter Care Teams Filling Layer Up Relationship Specialty Start Date End Date Bobby Headley MD [address] [place] [id number] PCP - General 01/29/14 11/28/17 documented as of this encounter
--- OUTSIDE RECORDS SUMMARY | 2023-09-17 01:37 | XMS_ITS | Encounter Summary ---
[place] [address] Care Team Providers Care Tan Room Supervisor Name Role Phone Bobby Headley MD Primary Care Provider Encounter Details Date Type Department Care Team (Late st Contact Info) Description 09/29/2014 12:00 PM EDT Office Visit Radiation Oncology at [address] [phone] Nitin Stauffer MD [address] [place] [address] DR RADIATION ONCOLOGY [place], [place] [id number] Cancer of prostate with intermediate recurrence risk (stage T2b-c or Cierra 7 or PSA 10-20) Discharge Disposition: Home [...] Sign Reading Time Taken Comments Blood Pressure 162/81 09/29/2014 11:00 AM EDT Pulse 60 09/29/2014 11:00 AM EDT Temperature 36.7 ??C (98 ??F) 09/29/2014 11:00 AM EDT Respiratory Rate 16 09/29/2014 11:00 AM EDT Oxygen Saturation 99% 09/29/2014 11:00 AM EDT Inhaled Oxygen Concentration - - Weight 96.8 kg (213 lb 8 oz) 09/29/2014 11:00 AM EDT Height - - Body Mass Index 32.46 03/04/2014 3:22 PM EST documented in this encounter Patient Instructions * Patient Instructions* Nitin Stauffer MD - 09/28/2014 3:39 PM EDT Dear Gayathri Mouna, This note is to recap our discussion regarding use of radiation treatments for your prostate cancer. As your radiation oncologist, I work closely with your other healthcare providers and most importantly, with you to make sure that the treatments we discuss and offer keep your personal preferences and goals in mind. To recap the details of our consultation today, Dr. Vergara asked for me to see you to discuss how radiation therapy can be used to treat your prostate cancer. We discussed the following next steps as part of your cancer evaluation and/or treatment: 1. Decision making on treatment: You technically have intermediate risk prostate cancer, which urbano risk given to your cancer of coming back after treatment. This is based on three things: your PSA(the blood test), Cierra score (how aggressive the prostate cancer looked under the microscope), and how aggressive your prostate cancer felt when Dr. Vergara did the prostate exam (through the rectum). The decision to treat prostate cancer is based on both the risk that the cancer can kill you andyour general overall health. I agree with Dr. Vergara's recommendation that this should be treated since we would otherwise expect you to live a normal length of life. Assuming you want to have treatment, both radiation and surgery are good options. You do not yet have an appointment to meet with a urologist who does prostate cancer surgery (such as Dr. Nunez, who you know), although we can help arrange an appointment if you are willing. 2. Radiation therapy: This involves shooting radiation from the outside through your body into yourprostate. The pro's of radiation therapy are that it is not invasive (there is no surgery or hospitalization required) and the risk of serious side effects is relatively low. We discussed possible side effects include irritation of the bladder or rectum which may cause increased frequency of urination (especially at night), increased bowel movement frequency, and very low risks of painful urination or blood in the stool.Longer term risks are rare, but may include permanent rectal, permanent urinary bleeding or weakened urinary stream. There is also a risk of losing your sexual function over the next few years, which can be slowed by medications such as Viagra. Another fpc but potentially serious side effect is the risk of radiation causing a second cancer in the bladder or rectum. Radiation therapy involves using high energy radiation which kills cancer but also normal healthy tissues. In order to make sure the radiation goes to the cancerous tissues and to also avoid radiating the normal tissues, we design radiation beams beams into special shapes which come from various different directions. Because no two people and no two cancers are completely identical, the radiationplan we create for you will be unique to you and your body. In order to figure out how many beams to use, how much radiation to give, which angles they should come from, and how they should be shaped, we have asked you to undergo 2 mapping scans: one is done here in our department known as a CT simulation, or CT sim, for short. This is essentially a CAT-scan similar to scans which you may have received before, but slightly different in a few ways: First, it allows us to place you in the exactsame position which you should expect to be placed during each of your radiation treatment sessions. Second, it lets us better understand where the radiation targets and the normal tissues that we want to avoid exist, in relation to each other and the radiation beams. The second scan is a prostate MRI which we do at [facility], that allows us to better see your prostate. Following these scans, we then perform additional calculations and measurements to create the absolute best plan possible for you. Depending on the complexity of the plan, these processes can take from just few hours to several days, and for that we ask for your patience. If you have any questions about the planning process or your custom radiation plan, I would be more than happy to review the plan with you during your first week of treatment. I anticipate you would receive 44 treatments total, daily Sunday-Sunday for al most 9 weeks. Your start date and time would be provided once the simulation scan is completed. During your radiation treatments, you can expect to see me once per week so that I can examine you to make sure you are tolerating radiation treatments and so that we can monitor your response to treatment. 3. Fiducial Markers: Prior to the CAT and MRI scan, we would also ask that you to return to our clinic so that we can place small gold markers (called fiducials) into the prostate, which help us visualize the prostate on a daily basis prior to treating you with radiation. These small gold seeds areabout the size of a grain of rice, and we will place one into each side of the prostate. The procedure will be performed here in our clinic, and we will provide you instructions with how to prepare yourself. Following the placement of the fiducial marker seeds, [facility] simulation scan here in our [facility] clinic, typically 1-2 weeks after the placement of the fiducials. 4. Hormone therapy: For intermediate risk prostate cancers such as yours, we often recommend a course of anti-testosterone therapy for 6 months (typically starting 2 months before radiation, contiuing for 2 months during radiation and ongoing after radiation is completed). This is usually given as a shot that lasts for 3 months at a time. The reason we recommend this is that the male hormone testosterone is used by prostate cancer as a fuel. By decreasing the body's production of testosterone, we can 'starve' the prostate cancer. The main side effects of hormone therapy include hot flashes, night sweats, weight gain, depressed mood, loss of sexual interest and impotence. There is also a very low risk of heart attack among men who have recently had a heart attack. These side effects usually reverse within 3-6 months of stopping the hormone therapy when testosterone recovers, although it can take up to a full year. Please do not hesitate to call me at [phone] with any other questions or concerns you have. Although our normal business hours are M-F 8AM-5PM, I am on- site here in [facility] Wednesdays through Fridays. On Mondays and Tuesdays, your nurse Christine Fernando will be here and can answer any questionsyou might have, or help you get in touch with me. A Radiation Oncology doctor is also spa receptionist after our normal hours and on weekends for urgent questions or concerns related to radiation treatments that can not wait until normal business hours. To reach the on-call doctor after-hours, just call and have the batch heat treat operator page the Radiation Oncologist spa receptionist. And, as always, if you experience any life-threatening emergencies which any include the following,you need to seek emergency care immediately by calling 911: 1. Sudden and unexpected breathing difficulty without any exertion 2. Sudden onset of chest pain 3. Sudden onset of severe pain or uncontrolled pain 4. Sudden onset of severe weakness and/or unable to walk 5. Sudden new onset of a seizure 6. Fall resulting in injury 7. Uncontrollable bleeding Nitin Ramirez MD Ore Graderfire prevention specialist Radiation Oncology [facility] documented in this encounter Progress Notes * Nitin Stauffer MD - 09/29/2014 12:00 PM EDT Radiation Oncology New Patient Consultation [facility] Reason for Consultation: intermediate risk prostate cancer (cT1c, PSA 5.4, Gl 4+3) Referring Physician / Service: Ursula HPI: Cheo Freire is a 64-year-old man recently diagnosed with intermediate risk prostate cancer.He was noted to have testicular enlargement and [...] seen. Pathology had been reviewed here at [facility]. The patient is here today to discuss radiotherapy as part of definitive management for his newly diagnosed intermediate risk prostate cancer. He did have a prolonged discussion with Dr. Vergara regarding the risks and benefits involved with prostatectomy, and appears to have made a decision prior to meeting with us to proceed with radiotherapy. Review of Systems: IPSS: 3 with nocturia once nightly, quality of life is 1/6 (pleased). VISHNU: 19 (mild ED), however he indicates that he and his are essentially asexual at this point. On further review, he has no other medical complaints. A comprehensive 14 point review of systems was conducted with this patient and is otherwise negative except as documented above. Past Medical History Diagnosis Date ??? DM (diabetes mellitus) ??? Obesity ??? HTN (hypertension) ??? Testicular abnormality The patient was specifically asked and denies a history of prior radiotherapy to this region, systemic sclerodema, or active systemic lupus. Past Surgical History Procedure Laterality Date ??? Cataract removal Bilateral ??? Tonsillectomy 1956 ??? Appendectomy 1957 Medication Sig ??? lisinopril (PRINIVIL;ZESTRIL) 20 mg Tablet Take 20 mg by mouth daily. ??? Ibuprofen 200 mg Capsule Take by mouth 4 times daily as needed. ??? aspirin 81 mg Tablet, Chewable Take 81 mg by mouth daily. 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 Estimated travel time by the patient to [facility] is 10 minutes, one-way. KPS: 100 Smoking: quit 1980s Alcohol: 3-4 beers/week Illicits: denies Family History: Reviewed with the patient and/or in the medical system and for the above diagnosis and is otherwisenon-contributory. Physical Exam: Filed Vitals: 09/29/14 1100 BP: 162/81 Pulse: 60 Temp: 36.7 ??C (98 ??F) Resp: 16 General: alert, well appearing, and in no distress Pathology Review: Pathology was reviewed in the medical record, as per HPI and is summarized below: Site: 10 core TRUS biopsy Histology / Grade: Gl 4+3 x 1 core Margin / Jerilyn status: n/a Other prognostic factors: n/a Assessment: Cheo Freire is a 64-year-old man with intermediate risk prostate cancer (Cierra 4 +3, PSA 5.4, clinical T1c). Plan: I have discussed the logistics, toxicities, and complications associated with definitive external beam radiotherapy to treat prostate cancer. He appears to have had a very lengthy and informative discussion with Dr. Vergara regarding both radiotherapy and prostatectomy. I was able to answer his questions regarding radiotherapy. It does seem that he is quite sure that he does not want to proceed with a surgical opinion. I did insist upon a consultation for him to meet with either Dr. Nunezor Dr. Stubbs at [facility]. However, he was quite clear that the potential side effects of urinary incontinence or erectile dysfunction are completely unacceptable to him. Given the primary Cierra 4 disease, I discussed the utility of short-course ADT with the patient today in clinic. We reviewd potential side effects and the rationale for ADT. He wishes to proceed and the first of 2 Lupron depot injections was administered today in clinic. Informed consent for fiducial markers and radiotherapy was also obtained from him today. We will plan to bring him back to our clinic in approximately 3-4 weeks' time for fiducial marker placement. Following this, we will ask him to undergo prostate MRI and CT simulation scan. We will plan to begin radiotherapy sometimes toward the middle of November. All of this patient's questions were answered to his fullest satisfaction, and we have provided him with our contact information shouldany further questions or concerns arise. 60 minutes of this 60 minute visit was spent face-to face,counseling the patient and answering his questions on treatment options as outlined in my assessment and plan. * Christine Fernando RN - 09/29/2014 11:51 AM EDT RADIATION ONCOLOGY NURSING INITIAL NURSING ASSESSMENT IDENTIFICATION: Cheo Freire is a 64 y.o. year-old male with prostate cancer PRESENTING SYMPTOMS/CHIEF COMPLAINT: rising PSA levels REVIEW OF SYSTEMS: Review of Systems Constitutional: Negative for fever, activity change, appetite change and fatigue. HENT: Negative for hearing loss, sore throat, tinnitus and trouble swallowing. Eyes: Negative for visual disturbance. Respiratory: Negative for choking, shortness of breath and wheezing. Cardiovascular: Negative for chest pain. Gastrointestinal: Negative for nausea, vomiting, abdominal pain, diarrhea, blood in stool and rectal pain. Genitourinary: Positive for decreased urine volume (mild). Negative for urgency and frequency. Musculoskeletal: Negative for back pain and arthralgias. Skin: Negative for rash. Neurological: Negative for seizures, syncope, speech difficulty, weakness, light-headedness and headaches. Hematological: Negative for adenopathy. Does not bruise/bleed easily. Psychiatric/Behavioral: The patient is not nervous/anxious. Prior Radiotherapy: No [x] Yes [] Site: Date: Physician/Location: Prior Chemotherapy: No [x] Yes [] Drug(s): Physician/Location: Date of last treatment: Prior Hormone Therapy: No [x] Yes [] Drug(s): Physician/Location: [facility] RISK ASSESSMENT SCORE: 0 RADIOLOGY SAFETY QUESTIONS REVIEWED: yes, on paper LEARNING ASSESSMENT REVIEWED: yes ADVANCED DIRECTIVE: yes, on file at [facility] ([facility]) PAIN ASSESSMENT: [0] out of 10 *eD-H Adult PCS Flow Sheet if 4 or above SOCIAL ASSESSMENT: See EDH social assessment information entered. Support Systems: Barriers to treatment: none Referrals/Interventions: none RADIATION SPECIFIC TEACHING:teaching to be provided on [facility] Radiation Therapy and You Site specific teaching : Other: PLAN: Per Dr Stauffer's note documented in this encounter Plan of Treatment Upcoming Encounters Date Type Department Care Team (Late st Contact Info) Description 09/19/2023 8:00 AM EDT Infusion Hematology Oncology at [address] [phone] 09/21/2023 9:30 AM EDT Office Visit Hematology [place] [address] Micha Givens Jr., MD [facility] [place] [address] 09/21/2023 10:30 AM EDT Clinical Support [place]ematology [place] [address] Danii Her RN 09/26/2023 8:30 AM EDT Infusion Hematology Oncology at [address] [phone] 10/03/2023 9:00 AM EDT Office Visit Hematology/Oncology at [address] [phone] Adrianne Ramon MD [facility] [place] [address] Yael Merlos APRN [facility] [place] [address] 10/03/2023 9:30 AM EDT Infusion Hematology Oncology at [address] [phone] 10/10/2023 8:30 AM EDT Infusion Hematology Oncology at [address] [phone] documented as of this encounter Procedures Procedure Name Priority Date/Time Associated Diagnosis Comments CHEMOTHERAPY SCAN 09/29/2014 12:00 AM EDT documented in this encounter Results * SCAN DOC: CHEMOTHERAPY (09/29/2014 12:00 AM EDT) Scanning Provider MEDIA MGR SCAN EXT O RDR/RSLT documented in this encounter Visit Diagnoses Diagnosis Cancer of prostate with intermediate recurrence risk (stage T2b-c or Cierra 7 or PSA 10-20) Malignant neoplasm of prostate documented in this encounter Care Teams Tan Room Supervisor Relationship Specialty Start Date End Date Bobby Headley MD [address] [place] [address] PCP - General 01/29/14 11/28/17 documented as of this encounter
--- NOTE | 2023-09-17 09:30 | DI.US_ITS ---
APPROVED REPORT EXAM: Comprehensive 2D, Doppler, and color-flow Echocardiogram Patient Location: Out-Patient Supportability Engineer: Ethan Ureña RDCS (AE) Indications: High risk medication use, chemo Conclusion Normal left ventricular wall thickness and chamber size. Ejection fraction is 60%. Wall motion is n ormal Normal right ventricular size and function Both atria are normal in size Aortic valve is trileaflet and mildly sclerotic without stenosis or regurgitation Normal mitral valve, mild regurgitation Wall motion Left Ventricle The left ventricle is normal size. The left ventricular systolic function is normal. The left ventric ular ejection fraction is within the normal range. There is normal left ventricular wall thickness. T here is normal LV segmental wall motion. There is no ventricular septal defect visualized. LVEF is 60 %. Right Ventricle The right ventricle is normal size. The right ventricular systolic function is normal. Atria The left atrium size is normal. The right atrium size is normal. The interatrial septum is intact wit h no evidence for an atrial septal defect. Aortic Valve The aortic valve is trileaflet and mildly sclerotic There is no aortic valvular stenosis. No aortic r egurgitation is present. Mitral Valve The mitral valve is normal in structure. No evidence of mitral valve stenosis. Mild mitral regurgitat ion. Tricuspid Valve The tricuspid valve is normal in structure. There is no tricuspid valve stenosis. Trace tricuspid reg urgitation. Unable to assess PA pressure. Pulmonic Valve The pulmonary valve is normal in structure. There is no pulmonic valvular stenosis. There is no pulmo maria esther valvular regurgitation. Great Vessels The aortic root is normal in size. The ascending aorta is normal in size. Ascending aorta is not well visualized. IVC is normal in size and collapses >50% with inspiration. Pericardium There is no pericardial effusion. 2D Dimensions IVSD d PLAX 1.06 cm M: 0.6-1.2 Ao Root d 3.42 cm M: 3.1 - 3.7 LVPW d PLAX 1.09 cm M: 0.6 - 1.2 Ao Asc Diam d 2.79 cm M: 2.6 - 3.4 LVID d PLAX 5.55 cm M: 4.2 - 5.8 LVDs 3.93 cm M: 2.5 - 4.0 LV EF Teichholz 55.5 % FS 29.26 % LV EDV (Teich) 150.5 mL LV ESV (Teich) 66.9 mL Stroke Vol Index (Teich) 41.76 M-Mode TAPSE 2.50 cm (M/F) >1.7 Auto EF LV EDV A4C 135.9 mL LV EDV A2C 129.7 mL LV EDV BP 131.5 mL LV ESV A4C 60.5 mL LV ESV A2C 55.5 mL LV ESV BP 57.9 mL LVEF(%) A4C 55.5 % LVEF(%) A2C 57.2 % LVEF(%) BP 56.0 % LV SV A4C 75.4 ml LV SV A2C 74.3 ml LV SV BP 73.6 ml LV CO A4C 5.0 L/min LV CO A2C 4.7 L/min LV CO BP 4.9 L/min HR A4C 67.04 BPM HR A2C 63.83 BPM LV EDV Index (BP) LV Strain Long Pk Overal Avg (s) 19.41 LA Volume LA Length A4C 4.7 cm LA Length A2C 5.4 cm LA Area A4C s 16.63 cm2 LA Area A2C s 18.57 cm2 LA Vol A4C A-L 49.88 mL LA Vol A2C A-L 54.22 mL LA Vol Biplane A-L 55.7 mL LA Vol/BSA A4C A-L LA Vol/BSA A2C A-L LA Vol/BSA BP A-L 27.8 mL/m2 LA Vol A4C MOD 46.7 mL LA Vol A2C MOD 51.2 mL LA Vol BP MOD 52.2 mL RA Volume RA Area A4C 9.3 cm2 RA ESV A4C (A-L) 17.1mL RA Vol/BSA A4C A-L RA Length A4C 4.3 cm RA ESV A4C (MOD) 16.1mL LV Diastology MV E' medial 0.085 (>0.07 m/s) MV E Vmax 0.90 (0.4-1.3 m/s) MV E/E' MED 10.65 (<14) MV A Vmax 1.00 (0.4-1.3 m/s) MV E' lateral 0.104 (>0.1 m/s) E/A Ratio 0.9 MV E/E' LAT 8.62 (<14) MV E' Average 0.094 m/s MV E/E'(average) 9.53 Aortic Valve AoV Vmax 1.41 m/s LVOT Vmax 0.96 m/s AoV Peak Grad 7.9 mmHg LVOT Peak Grad 3.7 mmHg AoV Area (Vmax) 2.23 cm2 LVOT VTI 0.213 m AoV VTI 0.322 m LVOT Mean Grad 2.0 mmHg AoV Mean Jung. 0.98 m/s LVOT SV 69.64 mL AoV Mean Grad 4.4 mmHg LVOT Diam s 2.00 cm AoV Area (VTI) 2.17 cm2 AV Regurg Peak Gr. 7.91 mmHg Velocity Ratio 0.68 Mitral Valve MV DT 153 (160-240 msec) MV Vmax TIPS 0.92 m/s MV Mean Grad 1.2 (<2mmHg) MV VTI 0.316 m Pulmonary Valve PV Vmax 1.07 (0.5-1.5 m/s) RVOT Vmax 0.59 m/s PV Peak Grad 4.6 mmHg RVOT Peak Gr. 1.4 mmHg PV Mean Jung 0.69 m/s RVOT VTI 0.112 m PV Mean Grad 2.2 mmHg RVOT Mean Gr. 0.7 mmHg
== END ==
PROVIDERS: PCP Family Medicine; Visit Provider Internal Medicine Hematology & Oncology
DX: Z79.899 Other long term (current) drug therapy (principal)
CPT/HCPCS: 93306

== ENCOUNTER 2023-09-19 02:30 | Outpatient (CLI) | payer MEDICARE, SELFPAY ==
--- OUTSIDE RECORDS SUMMARY | 2023-09-19 02:32 | XMS_ITS | Encounter Summary ---
Author Organization [facility] Address [address] [place] [address] Care Team Providers Care Fuels Engineer Name Role Phone Bobby Headley MD Primary Care Provider [phone] Encounter Details Date Type Department Care Team (Late st Contact Info) Description 10/06/2022 Lab Requisition [facility] Pathology & Laboratory Medicine - [facility] [address] [place] [address] Lg Ramírez MD [address] [place] [address] Generalized enlarged lymph nodes Social History [...] Name Priority Date/Time Associated Diagnosis Comments NON DEALER CARD ROOM/FNA CYTOLOGY Today 10/05/2022 8:00 EDT Generalized enlarged lymph nodes documented in this encounter Results * NON DEALER CARD ROOM/FNA CYTOLOGY (10/05/2022 8:00 EDT) Note to Patient The following pathology results have been interpreted by your pathologist and may be available to you before your health provider has had the opportunity to review them. Please allow time for your provider to receive these results and explore management options, if applicable. 10/09/2022 11:35 EDT [facility] Final Diagnosis A. LYMPH NODE, NECK, LATERALITY NOT SPECIFIED, ULTRASOUND-GUIDED FINE-NEEDLE ASPIRATION: - Mixed lymphoid population present, cannot exclude lymphoproliferative disorder. See comment. - Negative for metastatic carcinoma. 10/09/2022 11:35 [facility] Diagnosis Comment The specimen consists of a single thin prep slide with a mixed population lymphocytes. A lymphoproliferative disorder cannot be excluded based on this specimen alone. Correlation with the concurrent flow cytometry report ([id number]) and surgical biopsy specimen ([id number]) is essential. 10/09/2022 11:35 [facility] Attestation By the signature below, the attending physician certifies that they have personally conducted a gross and/or microscopic examination of the described specimens and rendered or confirmed the above diagnosis. 10/09/2022 11:35 [facility] at 1135 Clinical History Massive LAD; prostate cancer; R59.1 10/09/2022 11:35 [facility] Gross Description A. One vial of CytoLyt was received and processed by selective cellular enhancement technique. 10/09/2022 11:35 [facility] Performing Lab [facility] 10/09/2022 11:35 [facility] Scanned Images 10/09/2022 11:35 [facility] Fine Needle Aspirate ENTIRE LYMPH NODE / Unknown 10/05/2022 8:00 EDT 10/06/2022 6:21 EDT Lg Ramírez MD PATHOLOGY ORDERABLES [facility] [address] [place] [address] documented in this encounter Visit Diagnoses Diagnosis Generalized enlarged lymph nodes Enlargement of lymph nodes documented in this encounter Care Teams Fuels Engineer Relationship Specialty Start Date End Date Bobby Headley MD [address] [place] [phone] PCP - General 01/18/12 documented as of this encounter
--- OUTSIDE RECORDS SUMMARY | 2023-09-19 02:32 | XMS_ITS | Encounter Summary ---
Author Organization [facility] Address [address] [place] [address] Care Team Providers Care Sprayer Automatic Spray Machine Name Role Phone Bobby Headley MD Primary Care Provider [phone] Encounter Details Date Type Department Care Team (Late st Contact Info) Description 10/11/[address] [facility] Pathology & Laboratory Medicine - [address] [address] Dedrick Quintanilla MD [address] [facility], Level [address] [place] [address] Encounter for other general examination [...] Caleb Lloyd SEE NOTE 10/16/2022 15:45 EDT [facility] Comment: Test ?Result ?Flag ??Unit [...] Slides, Formalin ??Source ?Tongue ?Tissue ID ? [id number] ?Method ?SEE NOTE ?Locus and probes ? [Strategy;#Nuclei;Class] ?8CEN(D8Z2),8q24.1(MYC),14q32(IGH) ?[DFISH;100;AM] ?8q24.1(5'MYC,3'MYC) ?[BAP;100;AM] ?Probe strategies include: ?DFISH=dual color, double fusion; ?BAP=break-apart probe. ?Scoring Method: Manual ?Probe vendors include: ?AM = [employer] ([place], [place]) ??Additional Information ?Not Reported ?Disclaimer ?SEE NOTE ?Applicable to Analyte Specific Reagent (ASR) and Laboratory ?Developed Tests (LDT). This test was developed and its ?performance characteristics determined by [facility] in a ?manner consistent with CLIA requirements. [...] ? Masha Padilla M.D. ?Test Performed by: ?[facility] ?[address] [place] [address] ?Trial Management Associate: Jose David Lowry M.D. Ph.D.; CLIA# [id number] Tissue TISSUE SPECIMEN / Unknown 10/05/2022 8:00 EDT 10/11/2022 7:41 EDT Dedrick Quintanilla MD CHEMISTRY & BLOOD GA S ORDERABLES Performing Organization Address City/State/[facility] Co de Phone Number [facility] [address] [place] [address] documented in this encounter Visit Diagnoses Diagnosis Encounter for other general examination documented in this encounter Care Teams Sprayer Automatic Spray Machine Relationship Specialty Start Date End Date Bobby Headley MD [address] [place] [id number] PCP - General 01/18/12 documented as of this encounter
--- OUTSIDE RECORDS SUMMARY | 2023-09-19 02:32 | XMS_ITS | Encounter Summary ---
Author Organization [facility] Address [address] [place] [address] Care Team Providers Care Legal Transcriptionist Name Role Phone Bobby Headley MD Primary Care Provider [phone] Encounter Details Date Type Department Care Team (Late st Contact Info) Description 03/10/2019 Lab Requisition [facility] Pathology & Laboratory Medicine - [facility] [address] [place] [address] Unknown, Provider, Social History Tobacco Use Types [...] 0.0 - 6.5 ng/mL 03/11/2019 10:56 EST [facility] Blood VENOUS BLOOD / Unknown 03/10/2019 9:05 EST 03/10/2019 15:40 EST Narrative [facility] - 03/11/2019 10:56 EST NOTE: Serum PSA concentration should not be interpreted as absolute evidence for the presence or absence of malignant disease. Assayed on Siemens ADVIA adhoclabsaur XPT using chemiluminescent technology.??Values obtained by using different assay methods cannot be used interchangeably. Provider Unknown CHEMISTRY & BLOOD GA S ORDERABLES [facility] [address] [place] [address] documented in this encounter Visit Diagnoses Not on filedocumented in this encounter Care Teams Legal Transcriptionist Relationship Specialty Start Date End Date Bobby Headley MD [address] [place] [address] PCP - General 01/18/12 documented as of this encounter
--- OUTSIDE RECORDS SUMMARY | 2023-09-19 02:32 | XMS_ITS | Encounter Summary ---
Author Organization [facility] Address [address] [place] [address] Care Team Providers Care Gasfitter Name Role Phone Bobby Headley MD Primary Care Provider [phone] Encounter Details Date Type Department Care Team (Latest Contact Info) Description 09/01/2014 13:19 EDT - 09/01/2014 23:59 EDT Hospital Encounter [address] [address] Unknown, Provider, Discharge Disposition: Home or Self Care Social History Tobacco Use Types Packs/Day Years Used Date Smoking Tobacco: Never Assessed Sex and Gender Information Value Date Recorded Sex Assigned at Not on file Gender Identity Not on file Sexual Orientation Not on file documented as of this encounter Discharge Disposition Disposition Code Departure Means Destination Home or Self Custodial documented in this encounter Plan of Treatment Not on file documented as of this encounter Visit Diagnoses Not on filedocumented in this encounter Care Teams Gasfitter Relationship Specialty Start Date End Date Bobby Headley MD [address] [place] [phone] PCP - General 01/18/12 documented as of this encounter
--- OUTSIDE RECORDS SUMMARY | 2023-09-19 02:32 | XMS_ITS | Encounter Summary ---
Author Organization [facility] Address [address] [place] [address] Care Team Providers Care Organisational Psychologist Name Role Phone Bobby Headley MD Primary Care Provider [phone] Encounter Details Date Type Department Care Team (Late st Contact Info) Description 10/06/2022 Lab Requisition [facility] Pathology & Laboratory Medicine - [facility] [address] [place] [address] Lg Ramírez MD [address] [place] [phone] Generalized enlarged lymph nodes Social History Tobacco [...] Diffuse Large B-Cell Lymphoma. 10/17/2022 13:[address] [facility] Addendum electronically signed by Dedrick Quintanilla MD on 10/17/2022 at 1309 Note to Patient The following pathology results have been interpreted by your pathologist and may be available to you before your health provider has had the opportunity to review them. Please allow time for your provider to receive these results and explore management options, if applicable. 10/17/2022 13:09 [facility] Final Diagnosis A. Tongue base, left: -Large B-cell lymphoma, incompletely classified. See comment. 10/17/2022 13:09 [facility] Diagnosis Comment The findings are those of a large B-cell lymphoma that exhibits a non-germinal center immunophenotype and expresses Myc and BCL-2 protein (Double Expressor.) Flow cytometry ([id number]) supports this interpretation. The differential classification of this lesion is diffuse large B-cell lymphoma versus high grade B-cell lymphoma with MYC and BCL-2 rearrangement. Material has been sent to [facility] to assess the status of these genes by FISH and an addendum report with a definitive classification will be issued upon receipt of the result. 10/17/2022 13:09 [facility] Attestation By the signature below, the attending physician certifies that they have 1) personally conducted a gross and/or microscopic examination of the described specimen(s), and/or personally interpreted the results of laboratory testing of the described specimen(s), and 2) personally rendered or confirmed the above diagnosis. 10/17/2022 13:09 [facility] at 1210 Microscopic Description There is a diffuse proliferation of large B-cells below the squamous epithelium. Nuclei are large, oval, and and often contain multiple small nucleoli. Scattered small lymphocytes are present. CD3 (SP7, [employer]) Background T-cells CD20 (L26, [place]) diffusely positive in Neoplastic B-cells PAX-5 (1EW, Leica) diffusely positive in Neoplastic B-cells CD10 (SP67, [place]) Negative BCL-6 (G/191E/A8, [place]) Positive MUM-1 (MUM1p, Dako) Positive Myc (Y69, [employer]cam) Positive BCL-2 Oncoprotein (124, [place]) Positive Ki67 (MIB-1) (K2, Leica) Greater than 95% of cells in cycle Cyclin D1(SP4-R, [place]) Negative SAPPHIRE JOSE ([id number], Leica) Negative. 10/17/2022 13:[address] [facility] Clinical History Massive LAD, history of prostate cancer; clinical diagnosis code: R59.1 10/17/2022 13:[address] [facility] Gross Description A. Received in formalin labelled with proper patient identification (initials D, D) and left tongue base are multiple pale plasencia irregular soft tissue fragments which measure 0.8 x 0.6 x 0.5 cm in aggregate and are submitted in toto in A1. TAHMINA NELSON(ASCP) 10/06/2022 15:22 10/17/2022 13:[address] [facility] Performing Lab [facility] 13:[address] [facility] Scanned Images 10/17/2022 13:[address] [facility] Tissue TONGUE STRUCTURE / Unknown 10/05/2022 8:00 EDT 10/06/2022 8:28 EDT Lg Ramírez MD PATHOLOGY ORDERABLES [facility] [address] [place] [address] documented in this encounter Visit Diagnoses Diagnosis Generalized enlarged lymph nodes Enlargement of lymph nodes documented in this encounter Care Teams Organisational Psychologist Relationship Specialty Start Date End Date Bobby Headley MD [address] [place] [phone] PCP - General 01/18/12 documented as of this encounter
--- OUTSIDE RECORDS SUMMARY | 2023-09-19 02:32 | XMS_ITS | Referral Summary ---
Author Organization [facility] Address [address] [place] [address] Care Team Providers Care Precast Concrete Products Installer Name Role Phone Bobby Headley MD Primary Care Provider [phone] Social History Tobacco Use Types Packs/Day Years Used Date Smoking Tobacco: Never Assessed Sex and Gender Information Value Date Recorded Sex Assigned at Not on file Gender Identity Not on file Sexual Orientation Not on file Plan of Treatment Not on file Care Teams Precast Concrete Products Installer Relationship Specialty Start Date End Date Bobby Headley MD [address] [place] [address] [phone] PCP - General 01/18/12
--- OUTSIDE RECORDS SUMMARY | 2023-09-19 02:32 | XMS_ITS | Encounter Summary ---
Author Organization [facility] Address [address] [place] [address] Care Team Providers Care Tariff Expert Name Role Phone Unavailable Primary Care Provider Unavailabl e Encounter Details Date Type Department Care Team (Late st Contact Info) Description 01/17/2012 Results Only [facility] Services - [facility] [address] [place], [place] [phone] Andreas Temple MD [address] [place] [address] Social History Tobacco Use Types [...] ? CHEO MORFIN ? Accession #: ? [id number] ? : ? 1950 (Age: 61) ??M [...] specimens (A) and (B) were reviewed. ??(Dr. Lagos)/[facility] Document reviewed and electronically signed by: DELROY [...] Temple MD PATHOLOGY ORDERABLES Performing Organization Address City/State/[facility] Co de Phone Number [facility] [address] [place] [address] documented in this encounter Visit Diagnoses Not on filedocumented in this encounter
--- OUTSIDE RECORDS SUMMARY | 2023-09-19 02:32 | XMS_ITS | Encounter Summary ---
Author Organization [facility] Address [address] [place] [address] Care Team Providers Care Adjunct Political Science Instructor Name Role Phone Bobby Headley MD Primary Care Provider [phone] Encounter Details Date Type Department Care Team (Late st Contact Info) Description 10/11/2022 Lab Requisition [facility] Pathology & Laboratory Medicine - [address] [phone] Outr Resulting Lab, Provider Social History Tobacco [...] 610 - 1,616 mg/dL 10/12/2022 9:35 EDT [facility] IgA 182 85 - 499 mg/dL 10/12/2022 9:35 EDT [facility] IgM 233 35 - 242 mg/dL 10/12/2022 9:35 EDT [facility] Blood VENOUS BLOOD / Unknown 10/11/2022 10:55 EDT 10/11/2022 17:38 EDT Provider Outr Resulting Lab CHEMISTRY & BLOOD GAS ORDERABLES [facility] [address] [place] [address] documented in this encounter Visit Diagnoses Not on filedocumented in this encounter Care Teams Adjunct Political Science Instructor Relationship Specialty Start Date End Date Bobby Headley MD [address] [place] [phone] PCP - General 01/18/12 documented as of this encounter
--- OUTSIDE RECORDS SUMMARY | 2023-09-19 02:32 | XMS_ITS | Clinical Summary ---
Author Organization [facility] Address [address] [place] [address] Care Team Providers Care Assistant Principal Name Role Phone Bobby Headley MD Primary Care Provider [phone] Social History Tobacco Use Types Packs/Day Years [...] COVID-19 Vaccine (24 season) 2022 Care Teams Assistant Principal Relationship Specialty Start Date End Date Bobby Headley MD [address] [place] [address] [phone] PCP - General 01/18/12
--- OUTSIDE RECORDS SUMMARY | 2023-09-19 02:32 | XMS_ITS | Encounter Summary ---
Author Organization [facility] Address [address] [place] [address] Care Team Providers Care Flour Mixer Helper Name Role Phone Bobby Headley MD Primary Care Provider [phone] Encounter Details Date Type Department Care Team (Late st Contact Info) Description 10/26/2022 Lab Requisition [facility] Pathology & Laboratory Medicine - [address] [address] Outr Resulting Lab, Provider Social History Tobacco [...] Antigen Detection Negative Negative 10/26/2022 23:03 EDT [facility] Urine URINE / Unknown 10/25/2022 6 :05 EDT 10/26/2022 22:47 EDT Provider Outr Resulting Lab MICROBIOLOGY - GENERAL ORDERABLES [facility] [address] [place] [address] documented in this encounter Visit Diagnoses Not on filedocumented in this encounter Care Teams Flour Mixer Helper Relationship Specialty Start Date End Date Bobby Headley MD [address] [place] [phone] PCP - General 01/18/12 documented as of this encounter
--- OUTSIDE RECORDS SUMMARY | 2023-09-19 02:32 | XMS_ITS | Encounter Summary ---
Author Organization [facility] Address [address] [place] [address] Care Team Providers Care Retail Salesperson Name Role Phone Bobby Headley MD Primary Care Provider Encounter Details Date Type Department Care Team (Late st Contact Info) Description 03/22/2022 Lab Requisition [facility] Pathology & Laboratory Medicine - [facility] [address] [place], [place] [phone] Outr Resulting Lab, Provider Social History Tobacco [...] PSA <0.1 <=6.5 ng/mL 03/22/2022 23:03 EST [facility] Blood VENOUS BLOOD / Unknown 03/22/2022 9:35 EST 03/22/2022 21:50 EST Narrative [facility] - 03/22/2022 23:03 EST NOTE: Serum PSA concentration should not be interpreted as absolute evidence for the presence or absence of malignant disease. Assayed on Siemens ADVIA 3Pillar Globalaur XPT using chemiluminescent technology.??Values obtained by using different assay methods cannot be used interchangeably. Provider Outr Resulting Lab CHEMISTRY & BLOOD GAS ORDERABLES [facility] [address] [place] [address] documented in this encounter Visit Diagnoses Not on filedocumented in this encounter Care Teams Retail Salesperson Relationship Specialty Start Date End Date Bobby Headley MD [address] [place] [address] [phone] PCP - General 01/18/12 documented as of this encounter
--- OUTSIDE RECORDS SUMMARY | 2023-09-19 02:32 | XMS_ITS | Encounter Summary ---
Author Organization [facility] Address [address] [place] [address] Care Team Providers Care Milking Worker Name Role Phone Unavailable Primary Care Provider Unavailabl e Encounter Details Date Type Department Care Team (Late st Contact Info) Description 08/24/1999 Results Only [facility] conversion [address] [place] [address] Micha Pineda MD [address] [place] [phone] Social History Tobacco Use Types Packs/Day Years [...] ? CHEO MORFIN ? Accession #: ? [id number] ? : ? 1950 (Age: 49) ??M ? Collect Date: ? 08/24/1999 ? Location: ? [facility] ? Receive Date: ? 08/24/1999 ? Provider: RHYS PINEDA MD Copy to: MARY HEWITT MD ? Final Pathologic Diagnosis: ? Colon, left transverse (80 cm), biopsies: - Hyperplastic polyp. Document reviewed and electronically signed by: Tresa Waite [facility] Report ??Date: 08/26/1999 16:44 By the signature [...] MD PATHOLOGY ORDERABLES [facility] [address] [place] [address] documented in this encounter Visit Diagnoses Not on filedocumented in this encounter
--- OUTSIDE RECORDS SUMMARY | 2023-09-19 02:32 | XMS_ITS | Encounter Summary ---
Author Organization [facility] Address [address] [place] [address] Care Team Providers Care Fish Bait Picker Name Role Phone Unavailable Primary Care Provider Unavailabl e Encounter Details Date Type Department Care Team (Late st Contact Info) Description 12/19/2006 Results Only [facility] conversion [address] [place] [address] Micha Pineda MD [address] [place] [phone] Social History Tobacco Use Types Packs/Day Years [...] ? CHEO MORFIN ? Accession #: ? [id number] ? : ? 1950 (Age: 56) ??M [...] specimen is entirely submitted as (C). ??(Dr. Echavarria)/[facility] End of Report [facility] 12/19/2006 12/19/2006 15: 40 EDT Micha Pineda MD PATHOLOGY ORDERABLES Performing Organization Address City/State/[facility] Co de Phone Number [facility] [address] [place] [address] documented in this encounter Visit Diagnoses Not on filedocumented in this encounter
--- OUTSIDE RECORDS SUMMARY | 2023-09-19 02:32 | XMS_ITS | Encounter Summary ---
Author Organization [facility] Address [address] [place] [address] Care Team Providers Care Bun Panner Name Role Phone Bobby Headley MD Primary Care Provider [phone] Encounter Details Date Type Department Care Team (Late st Contact Info) Description 10/06/2022 Lab Requisition [facility] Pathology & Laboratory Medicine - [address] [id number] Outr Resulting Lab, Provider Social History Tobacco [...] on filedocumented in this encounter Care Teams Bun Panner Relationship Specialty Start Date End Date Bobby Headley MD [address] [place] [id number] PCP - General 01/18/12 documented as of this encounter
--- OUTSIDE RECORDS SUMMARY | 2023-09-19 02:32 | XMS_ITS | Encounter Summary ---
Author Organization [facility] Address [address] [place] [address] Care Team Providers Care Database Marketing Specialist Name Role Phone Bobby Headley MD Primary Care Provider [phone] Encounter Details Date Type Department Care Team (Late st Contact Info) Description 11/16/[address] [facility] Pathology & Laboratory Medicine - [facility] [address] [place], [place] [id number] Outr Resulting Lab, Provider Social History Tobacco [...] Salmonella PCR Negative Negative 11/16/2022 23:10 EDT [facility] Shigella/Enteroin vasive E. coli Negative Negative 11/16/2022 23:10 EDT [facility] HN LAB CAMPYLOBACTER PCR Negative Negative 11/16/2022 23:10 EDT [facility] Shiga Toxin PCR Negative Negative 23:10 EDT [facility] Feces SPECIMEN FROM RECTUM / Unknown 11/16/2022 0:35 EDT 11/16/2022 18:28 EDT Provider Outr Resulting Lab MICROBIOLOGY - GENERAL ORDERABLES [facility] [address] [place] [address] documented in this encounter Visit Diagnoses Not on filedocumented in this encounter Care Teams Database Marketing Specialist Relationship Specialty Start Date End Date Bobby Headley MD [address] [place] [phone] PCP - General 01/18/12 documented as of this encounter
--- OUTSIDE RECORDS SUMMARY | 2023-09-19 02:32 | XMS_ITS | Encounter Summary ---
Author Organization [facility] Address [address] [place] [address] Care Team Providers Care Card Sorter Name Role Phone Bobby Headley MD Primary Care Provider [phone] Encounter Details Date Type Department Care Team (Late st Contact Info) Description 10/06/2022 Lab Requisition [facility] Pathology & Laboratory Medicine - [facility] [address] [place] [address] Lg Ramírez MD [address] [place] [phone] Generalized enlarged lymph nodes Social History [...] B-cell lymphoproliferative disorder. See comment. 12:09 EDT [facility] Comment The results of flow cytometry are those of involvement by a lymphoproliferative disorder of B-cell lineage expressing surface lambda light chains. The immunophenotypic profile is non-specific.. Cell size, as assessed by light scatter criteria, suggests a large B-cell lymphoma. Correlation of these findings with morphologic and clinical data is essential. Please refer to report [id number] for morphologic details. 3 12:09 [facility] Attestation By the signature below, the attending physician certifies that they have 1) personally conducted a gross and/or microscopic examination of the described specimen(s), and/or personally interpreted the results of laboratory testing of the described specimen(s), and 2) personally rendered or confirmed the above diagnosis. 3 12:09 [facility] at 1209 Clinical History 72 yo male with massive LAD (cervical/tongue/ret rophar.) 3 12:09 [facility] Description The specimen consists of [...] CD4+ and CD8+ subsets represented. 3 12:09 [facility] Flow Markers CD10, CD19, CD20, CD3, CD4, CD45, CD5, CD8, [place], and Lambda 3 12:09 [facility] FDA Disclaimer This test was developed and its performance characteristics determined by the Department of Pathology and Laboratory Medicine, [facility], [place], [place] It has not been cleared or [...] complexity clinical laboratory testing. 3 12:09 EDT [facility] Sample Analyzed Date and Time 10/06/22 12:30 3 12:09 EDT [facility] Scanned Images 3 12:09 EDT [facility] Tissue STRUCTURE OF ROOT OF TONGUE / Unknown 10/05/2022 8:00 EDT 10/06/2022 9:32 EDT Lg Ramírez MD PATHOLOGY ORDERABLES [facility] [address] [place] [address] documented in this encounter Visit Diagnoses Diagnosis Generalized enlarged lymph nodes Enlargement of lymph nodes documented in this encounter Care Teams Card Sorter Relationship Specialty Start Date End Date Bobby Headley MD [address] [place] [id number] PCP - General 01/18/12 documented as of this encounter
--- OUTSIDE RECORDS SUMMARY | 2023-09-19 02:32 | XMS_ITS | Encounter Summary ---
Author Organization [facility] Address [address] [place] [address] Care Team Providers Care Coin Box Inspector Name Role Phone Bobby Headley MD Primary Care Provider [phone] Encounter Details Date Type Department Care Team (Late st Contact Info) Description 06/13/2023 Lab Requisition [facility] Pathology & Laboratory Medicine - [address] [phone] Outr Resulting Lab, Provider Social History Tobacco [...] 610 - 1,616 mg/dL 06/14/2023 11:26 EDT [facility] IgA 119 85 - 499 mg/dL 06/14/2023 11:26 EDT [facility] IgM 124 35 - 242 mg/dL 06/14/2023 11:26 EDT [facility] Blood VENOUS BLOOD / Unknown 06/13/2023 10:17 EDT 06/13/2023 17:36 EDT Provider Outr Resulting Lab CHEMISTRY & BLOOD GAS ORDERABLES [facility] [address] [place] [address] documented in this encounter Visit Diagnoses Not on filedocumented in this encounter Care Teams Coin Box Inspector Relationship Specialty Start Date End Date Bobby Headley MD [address] [phone] PCP - General 01/18/12 documented as of this encounter
--- OUTSIDE RECORDS SUMMARY | 2023-09-19 02:32 | XMS_ITS | Encounter Summary ---
Author Organization [facility] Address [address] [place] [address] Care Team Providers Care Toe Stripper Name Role Phone Bobby Headley MD Primary Care Provider [phone] Encounter Details Date Type Department Care Team (Late st Contact Info) Description 03/11/2021 Lab Requisition [facility] Pathology & Laboratory Medicine - [address] [phone] Outr Resulting Lab, Provider Social History Tobacco [...] 0.0 - 6.5 ng/mL 03/11/2021 21:52 EST [facility] Blood VENOUS BLOOD / Unknown 03/11/2021 12:38 EST 03/11/2021 21:02 EST Narrative [facility] - 03/11/2021 21:52 EST NOTE: Serum PSA concentration should not be interpreted as absolute evidence for the presence or absence of malignant disease. Assayed on Siemens ADVIA [employer] [place] XPT using chemiluminescent technology.??Values obtained by using different assay methods cannot be used interchangeably. Provider Outr Resulting Lab CHEMISTRY & BLOOD GAS ORDERABLES [facility] [address] [place] [address] documented in this encounter Visit Diagnoses Not on filedocumented in this encounter Care Teams Toe Stripper Relationship Specialty Start Date End Date Bobby Headley MD [address] [place] [address] [phone] PCP - General 01/18/12 documented as of this encounter
--- OUTSIDE RECORDS SUMMARY | 2023-09-19 02:32 | XMS_ITS | Encounter Summary ---
Author Organization [facility] Address [address] [place] [address] Care Team Providers Care Water Main Pipe Layer Name Role Phone Bobby Headley MD Primary Care Provider [phone] Encounter Details Date Type Department Care Team (Late st Contact Info) Description 09/01/2014 Results Only [facility] [phone] Tk Vergara MD [address] [place] [address] Social History Tobacco Use Types Packs/Day Years [...] ? CHEO MORFIN ? Accession #: ? [id number] ? : ? 1950 (Age: 64) ??M [...] = 7 (60% 4) ? - Primary [place] pattern: ? Grade 4 ? - Secondary [place] pattern: ? Grade 3 ? - Total [...] William 09/03/2014 9:00 AM End of Report [facility] 09/01/2014 18:1 6 EDT 09/02/2014 18:16 EDT Tk Vergara MD PATHOLOGY ORDERABLES [facility] [address] [place] [address] documented in this encounter Visit Diagnoses Not on filedocumented in this encounter Care Teams Water Main Pipe Layer Relationship Specialty Start Date End Date Bobby Headley MD [address] [place] [address] [phone] PCP - General 01/18/12 documented as of this encounter
--- OUTSIDE RECORDS SUMMARY | 2023-09-19 02:32 | XMS_ITS | Encounter Summary ---
Author Organization [facility] Address [address] [place] [address] Care Team Providers Care Is Manager Name Role Phone Bobby Headley MD Primary Care Provider [phone] Encounter Details Date Type Department Care Team (Late st Contact Info) Description 03/05/2020 Lab Requisition [facility] Pathology & Laboratory Medicine - [address] [phone] Outr Resulting Lab, Provider Social History Tobacco [...] 0.0 - 6.5 ng/mL 03/06/2020 0:00 EST [facility] Blood VENOUS BLOOD / Unknown 03/05/2020 7:50 EST 03/05/2020 17:28 EST Narrative [facility] - 03/06/2020 0:00 EST NOTE: Serum PSA concentration should not be interpreted as absolute evidence for the presence or absence of malignant disease. Assayed on Siemens ADVIA [employer] XPT using chemiluminescent technology.??Values obtained by using different assay methods cannot be used interchangeably. Provider Outr Resulting Lab CHEMISTRY & BLOOD GAS ORDERABLES [facility] [address] [place] [address] documented in this encounter Visit Diagnoses Not on filedocumented in this encounter Care Teams Is Manager Relationship Specialty Start Date End Date Bobby Headley MD [address] [place] [phone] PCP - General 01/18/12 documented as of this encounter
--- OUTSIDE RECORDS SUMMARY | 2023-09-19 02:33 | XMS_ITS | Encounter Summary ---
Author Organization [facility] [place] [address] Care Team Providers Care Diesel Technician Name Role Phone Frederick Meade MD Primary Care Provider [phone] Encounter Details Date Type Department Care Team [...] AM EDT Infusion Hematology Oncology at [address] [phone] 09/21/2023 9:30 AM EDT Office Visit Hematology [place] [address] Micha Givens Jr., MD [facility] [place] [address] 09/21/2023 10:30 AM EDT Clinical Support Hematology [place] [address] Danii Her RN 09/26/2023 8:30 AM EDT Infusion Hematology Oncology at [address] [phone] 10/03/2023 9:00 AM EDT Office Visit Hematology/Oncology at [address] [phone] Adrianne Ramon MD [facility] [place] [address] Yael Merlos APRN [facility] [place] [address] 10/03/2023 9:30 AM EDT Infusion Hematology Oncology at [address] [phone] 10/10/2023 8:30 AM EDT Infusion Hematology Oncology at [address] [phone] documented as of this encounter Visit Diagnoses Not on filedocumented in this encounter Care Teams Diesel Technician Relationship Specialty Start Date End Date Frederick Meade MD [address] [place] [address] PCP - General Family Medicine 11/29/17 documented as of this encounter
--- OUTSIDE RECORDS SUMMARY | 2023-09-19 02:33 | XMS_ITS | Encounter Summary ---
Author Organization [facility] [address] Care Team Providers Care Automotive Drivability Technician Name Role Phone Frederick Meade MD Primary Care Provider [phone] Encounter Details Date Type Department Care Team [...] AM EDT Infusion Hematology Oncology at [address] [phone] 09/21/2023 9:30 AM EDT Office Visit Hematology [place] [address] Micha Givens Jr., MD [facility] [place] [address] 09/21/2023 10:30 AM EDT Clinical Support Hematology [place] [address] Danii Her RN 09/26/2023 8:30 AM EDT Infusion Hematology Oncology at [address] [phone] 10/03/2023 9:00 AM EDT Office Visit Hematology/Oncology at [address] [phone] Adrianne Ramon MD [facility] [place] [address] Yael Merlos APRN [facility] [place] [address] 10/03/2023 9:30 AM EDT Infusion Hematology Oncology at [address] [phone] 10/10/2023 8:30 AM EDT Infusion Hematology Oncology at [address] [phone] documented as of this encounter Visit Diagnoses Not on filedocumented in this encounter Care Teams Automotive Drivability Technician Relationship Specialty Start Date End Date Frederick Meade MD [address] [place] [address] PCP - General Family Medicine 11/29/17 documented as of this encounter
--- OUTSIDE RECORDS SUMMARY | 2023-09-19 02:33 | XMS_ITS | Encounter Summary ---
[place] [address] Care Team Providers Care Clinical Review Specialist Name Role Phone Frederick Meade MD Primary Care Provider [phone] Encounter Details Date Type Department Care Team (Late st Contact Info) Description 03/15/2023 Orders Only Radiology at [address] [place] [address] Aaron Husain MD [facility] [place] [address] Social History Tobacco Use Types Packs/Day Years [...] IR Mediport Placement 10/17/2022 Gail Jha PA 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 Tobacco Use Smoking status: Former Packs/day: [...] 8:00 AM EDT Infusion Hematology Oncology at [address] [phone] 09/21/2023 9:30 AM EDT Office Visit [place]ology [place] [address] Micha Givens Jr., MD [facility] DR [place] [address] 09/21/2023 10:30 AM EDT Clinical Support [place]ematology [place] [address] Danii Her RN 09/26/2023 8:30 AM EDT Infusion Hematology Oncology at [address] [phone] 10/03/2023 9:00 AM EDT Office Visit Hematology/Oncology at [address] [phone] Adrianne Ramon MD [facility] DR [place] [address] Yael Merlos, AUTO PARTS CLERK [facility] DR [place] [address] 10/03/2023 9:30 AM EDT Infusion Hematology Oncology at [address] [phone] 10/10/2023 8:30 AM EDT Infusion Hematology Oncology at [address] [phone] documented as of this encounter Visit Diagnoses Not on filedocumented in this encounter Care Teams Clinical Review Specialist Relationship Specialty Start Date End Date Frederick Meade MD [address] [place] [address] [address] [place] [address] PCP - General Family Medicine 11/29/17 documented as of this encounter
--- OUTSIDE RECORDS SUMMARY | 2023-09-19 02:33 | XMS_ITS | Encounter Summary ---
[place] [address] Care Team Providers Care Furniture Rental Consultant Name Role Phone Frederick Meade MD Primary Care Provider [phone] Reason for Referral * Diagnostic Test (Routine) - Authorized Specialty Diagnoses / Procedures Referred By Contac t Referred To Contact Radiology Diagnoses 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 Procedures CT Neck Soft Tissue w Contrast (Generic) Yael Merlos FINANCE MANAGER [facility] DR HEMATOLOGY [place] [address] Referral ID Status Reason Start Date Expiration Date Visits Requested Visits Authorized [id number] Authorized Specialty Service Requested 06/13/2023 12/12/2024 1 1 * Diagnostic Test (Routine) - Authorized Specialty Diagnoses / Procedures Referred By Contac t Referred To Contact Radiology Diagnoses 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 Procedures CT Chest Abdomen Pelvis w Contrast (Generic) Yael Merlos APRN [facility] DR HEMATOLOGY [place] [address] Referral ID Status Reason Start Date Expiration Date Visits Requested Visits Authorized [id number] Authorized Specialty Service Requested 06/13/2023 12/12/2024 1 1 Reason for Visit * Reason Comments Follow-up Encounter Details Date Type Department Care Team (Late st Contact Info) Description 06/13/2023 11:00 AM EDT Office Visit Hematology/Oncology at [address] [phone] Adrianne Ramon MD [facility] DR HEMATOLOGY [place] [address] Yael Merlos APRN [facility] HEMATOLOGY [place] [address] 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 [...] this encounter Progress Notes * Yael Merlos, FINANCE MANAGER - 06/13/2023 11:00 AM EDT Hematology Clinic [facility] [place] [address] HEMATOLOGY PATIENT EVALUATION PROBLEM LIST: Patient Active [...] to consultation, he saw [facility] and when to [facility]. No beds so sent to [facility] for [address] CAP, MRI, [...] days with nice response. Pathology from [facility] reports large B-cell lymphoma. Double expresser. FISH for translocations are pending. Tongue swelling. No wt loss. Eating and drinking OK. No fevers, infections, No NS. Pain in neck. Prednisone 60mg daily X 7 days. I feel great on prednisone last day of prednisone is today. Took iron supplements per PCP - unclear cause. - last COLO at [facility] was 01/17/2012. INTERIM HISTORY OF PRESENT ILLNESS: [...] using his bike. They are opening their [place] again inviting in close friends and family and beginning to extends back out in their social [place] which is quite reasonable at this point. No new health-related concerns. 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 6 mos of adjuvant Lupron. Total dose 79.2 Gy completed 01/26/15 09/29/22 Large B Cell lymphoma - biopsy of tongue and needle of cervical LN. FISH from [place] No MYCrearrangement and no fusion of MYC [...] only 1 biologic. Son Cheo Freire. Enjoys [employer], movies, race car, [employer]. [employer]. 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 Not a . ETOH: 1-3 beers per week Smoking: Quit 1985. Approximately 62-pjmd-qcnc history Vaping or electronic cigarettes: denies Chewing [...] is a delightful 73-year old male in [facility]. He is accompanied to the clinic by [...] and BCL-2 protein (Double Expressor.) Flow cytometry ([id number]) supports this interpretation. FISH from [place] No MYC rearrangement and no fusion of MYC and IGH was observed, CD3 (SP7, [employer]) Background T-cells CD20 (L26, [place]) diffusely positive in Neoplastic B-cells PAX-5 (1EW, [employer]) diffusely positive in Neoplastic B-cells CD10 (SP67, [place]) Negative BCL-6 (G/191E/A8, [place]) Positive MUM-1 (MUM1p, [employer]) Positive Myc (Y69, [employer]) Positive BCL-2 Oncoprotein (124, [place]) Positive Ki67 (MIB-1) (K2, [employer]) Greater than 95% of cells in cycle Cyclin D1(SP4-R, [place]) Negative SAPPHIRE JOSE (NIS5461-X, [employer]) Negative. DIAGNOSTICS: 01/25/23 ECHO after C#5 [...] undergo investigation with ultrasound. CT CAP at [facility], report and images have been requested. [...] LVEF at 50-55%. --asymptomatic --repeat echo at [facility] 1 year post completion of therapy [due [...] and counseling as appropriate. Yael Merlos, MSN, FINANCE MANAGER Nurse Practitioner Section of Hematology Copy Frederick Meade MD documented in this encounter Plan of Treatment Upcoming Encounters Date Type Department Care Team (Late st Contact Info) Description 09/19/2023 8:00 AM EDT Infusion Hematology Oncology at [address] [phone] 09/21/2023 9:30 AM EDT Office Visit Hematology [place] [address] Micha Givens Jr., MD [facility] DR HEMATOLOGY [place] [address] 09/21/2023 10:30 AM EDT Clinical Support Hematology [place] [phone] Danii Her RN 09/26/2023 8:30 AM EDT Infusion Hematology Oncology at [address] [phone] 10/03/2023 9:00 AM EDT Office Visit Hematology/Oncology at [address] [phone] Adrianne Ramon MD [facility] HEMATOLOGY [place] [address] Yael Merlos, KARLA [facility] HEMATOLOGY [place] [address] 10/03/2023 9:30 AM EDT Infusion Hematology Oncology at [address] [phone] 10/10/2023 8:30 AM EDT Infusion Hematology Oncology at [address] [phone] Scheduled Orders Name Type Priority [...] type documented in this encounter Care Teams Furniture Rental Consultant Relationship Specialty Start Date End Date Frederick Meade MD [address] [place] [address] PCP - General Family Medicine 11/29/17 documented as of this encounter
--- OUTSIDE RECORDS SUMMARY | 2023-09-19 02:33 | XMS_ITS | Encounter Summary ---
Author Organization [facility] [place] [address] Care Team Providers Care Drain Tiler Name Role Phone Frederick Meade MD Primary Care Provider [phone] Reason for Visit * Treatment/Therapy Plan Authorization (Routine) - Authorized Specialty Diagnoses / Procedures Referred By Contac t Referred To Contact Hematology and Oncology Diagnoses 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 Adrianne Ramon MD [facility] DR HEMATOLOGY [place] [address] Stj Hem Onc Infusion [address] [place] [phone] Referral ID Status Reason Start Date Expiration Date V isits Requested Visits Authorized [id number] Authorized 09/12/2023 09/11/2024 99 99 Encounter Details Date Type Department Care Team (Late st Contact Info) Description 09/19/2023 8:00 AM EDT Infusion Hematology Oncology at [address] [phone] Social History Tobacco Use Types Packs/Day Years [...] Care Team (Late st Contact Info) Description 09/21/2023 9:30 AM EDT Office Visit Hematology [place] [address] Micha Givens Jr., MD [facility] DR HEMATOLOGY [place] [address] 09/21/2023 10:30 AM EDT Clinical Support Hematology [place] [address] Danii Her RN 09/26/2023 8:30 AM EDT Infusion Hematology Oncology at [address] [phone] 10/03/2023 9:00 AM EDT Office Visit Hematology/Oncology at [address] [phone] Adrianne Ramon MD [facility] DR HEMATOLOGY [place] [address] Yael Merlos APRN [facility] [place]OLOG[place] [address] 10/03/2023 9:30 AM EDT Infusion Hematology Oncology at [address] [phone] 10/10/2023 8:30 AM EDT Infusion Hematology Oncology at [address] [phone] documented as of this encounter Visit Diagnoses Not on filedocumented in this encounter Care Teams Drain Tiler Relationship Specialty Start Date End Date Frederick Meade MD [address] [place] [address] [address] [place] [address] PCP - General Family Medicine 11/29/17 documented as of this encounter
--- OUTSIDE RECORDS SUMMARY | 2023-09-19 02:33 | XMS_ITS | Encounter Summary ---
Author Organization [facility] Address [facility] [place] [address] Care Team Providers Care Practice Director Name Role Phone Frederick Meade MD Primary Care Provider [phone] Reason for Visit * Reason Onset Date Comments New Medication Request 09/12/2023 revlimid Encounter Details Date Type Department Care Team (Late st Contact Info) Description 09/12/2023 Telephone Hematology/Oncology at [address] [phone] Polly Orellana RN New Medication [...] Prescriber online survey done 09/12/23 with the [employer] Revlimid [employer]S Program Revlimid Auth # [id number] Pt Survey done on 09/12/23 Prescription to be manually faxed to [facility] [phone] phone [phone] after obtaining signature Adrianne Ramon MD Script [...] AM EDT Infusion Hematology Oncology at [address] [phone] 09/21/2023 9:30 AM EDT Office Visit [place]ematology [place] [address] Micha Givens Jr., MD [facility] DR HEMATOLOGY [place] [address] 09/21/2023 10:30 AM EDT Clinical Support [place]ematology [place] [address] Danii Her RN 09/26/2023 8:30 AM EDT Infusion Hematology Oncology at [address] [phone] 10/03/2023 9:00 AM EDT Office Visit Hematology/Oncology at [address] [phone] Adrianne Ramon MD [facility] DR HEMATOLOGY [place] [address] Yael Merlos, KARLA [facility] DR HEMATOLOGY [place] [address] 10/03/2023 9:30 AM EDT Infusion Hematology Oncology at [address] [phone] 10/10/2023 8:30 AM EDT Infusion Hematology Oncology at [address] [phone] documented as of this encounter Visit Diagnoses Not on filedocumented in this encounter Care Teams Practice Director Relationship Specialty Start Date End Date Frederick Meade MD [address] [place] [address] [address] [place] [address] PCP - General Family Medicine 11/29/17 documented as of this encounter
--- OUTSIDE RECORDS SUMMARY | 2023-09-19 02:33 | XMS_ITS | Clinical Summary ---
Author Organization [facility] [place] [address] Care Team Providers Care Model And Pattern Supervisor Name Role Phone Frederick Meade MD Primary Care Provider [phone] [phone] Allergies No known active allergies Medications Medication [...] Strip USE TO TEST DAILY 3 03/13/2018 A ctive ONE TOUCH DELICA 33 gauge Misc USE TO TEST DAILY 4 03/11/2018 Active ONETOUCH ULTRASOFT LANCETS Misc USE TO TEST DAILY 2 06/07/2018 Activ e amLODIPine (Norvasc) 5 mg tablet Take 5 mg by mouth daily. Active Psyllium Seed-Sucrose (0) Powder Take by mouth 2 times daily as needed. Active allopurinoL (Zyloprim) 100 mg tablet Take 200 mg by mouth daily. Active diphenoxylate-atrop ine (Lomotil) 2.5-0.025 mg tablet Take 1 tablet by mouth 4 times daily as needed for Diarrhea. Active lactobacillus (BACID) Capsule Take 1 tablet by mouth daily. Active loratadine (Claritin) 10 mg Tablet Take 10 mg by mouth daily. Active lenalidomide (Revlimid) 20 mg capsuleIndications: progressive diffuse large B-cell lymphoma Take 1 capsule (20 mg) by mouth daily for 21 days. Call clinic before starting medication. Indications: progressive diffuse large B-cell lymphoma 09/12/2023 10/03/2023 Active Active Problems Problem Noted Date Diagnosed Date Abnormal echocardiogram 11/20/2022 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 10/10/2022 Anemia, iron deficiency 08/21/2018 Gout 05/31/2017 Malignant neoplasm of prostate 09/01/2014 Encounters Date Type Department Care Team Description 09/19/2023 8:00 AM EDT Infusion Hematology Oncology at [address] [phone] 09/14/2023 Telephone Hematology/Oncolog y at [address] [phone] Brenda Priest RN 09/13/2023 Telephone Hematology/Oncolog y at [address] [phone] Colt Ardon RN Other (Financial paperwork ) 09/12/2023 10:15 AM EDT Office Visit Hematology/Oncolog y at [address] [phone] Adrianne Ramon MD Stearns, Diane M, EXPEDITION[employer] 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; High risk medication use 09/12/2023 Telephone Hematology/Oncolog y at [address] [phone] Polly Orellana, OSCAR New Medication Request (revlimid) 09/12/2023 Telephone Hematology/Oncolog y at [address] [phone] Adrianne Ramon MD 09/12/2023 Travel 09/06/2023 1:00 PM EDT - 09/06/2023 11:59 PM EDT Hospital En[place] [address] Adrianne Ramon MD Discharge Disposition: Home 09/06/2023 12:59 PM EDT Hospital Encounter [place] [address] Adrianne Ramon MD 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; Skin nodule Discharge Disposition: Home 09/06/2023 10:15 AM EDT - 09/06/2023 12:58 PM EDT Hospital Encounter Radiology at [place] [phone] Adrianne Ramon MD 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; Skin nodule Discharge Disposition: Home 09/06/2023 9:48 AM EDT - 09/06/2023 10:14 AM EDT Hospital Encounter Hematology and Oncology at [place] [phone] 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; Skin nodule Discharge Disposition: Home 09/06/2023 Travel 08/22/2023 12:30 PM EDT Office Visit Hematology/Oncolog y at [address] [phone] Adrianne Ramon MD Stearns, Diane M, EXPEDITION[employer] 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; Skin nodule 08/22/2023 Travel 06/22/2023 Orders Only [place]ematology [place] [address] Deidre Silverio from Last 3 Months Family [...] AM EDT Infusion Hematology Oncology at [address] [phone] 09/21/2023 9:30 AM EDT Office Visit Hematology [place] [address] Micha Givens Jr., MD [facility] [address] [place] [address] 09/21/2023 10:30 AM EDT Clinical Support [place]ematology [place] [address] Danii Her RN 09/26/2023 8:30 AM EDT Infusion Hematology Oncology at [address] [phone] 10/03/2023 9:00 AM EDT Office Visit Hematology/Oncology at [address] [phone] Adrianne Ramon MD [facility] DR [place] [address] Yael Merlos, KARLA [facility] [address] [place] [address] 10/03/2023 9:30 AM EDT Infusion Hematology Oncology at [address] [phone] 10/10/2023 8:30 AM EDT Infusion Hematology Oncology at [address] [phone] Health Maintenance Due Date Last Done Comments [...] Completed 10/17/2022 Medical Devices Explanted Type Area Manager Filter Device Identifier Shelf Expiration Date Model / Serial / Lot Port Infusion 8fr Cath Power Injectable Lp 1lum Ct Ti [id number]/17 Implanted:Qty: 1 on 10/17/2022 by Gail Jha PA Explanted:Qty: 1 on 03/29/2023 by Chalo Crews PA IMPLANTS Right: Chest Wall [employer] - CR BARD 03/21/2024 [id number] / / [id number] Procedures Procedure Name Priority Date/Time Associated Diagnosis Comments ECHO SCAN (SCAN) 09/17/2023 12:0 0 AM EDT NM PET CT STANDARD PLUS EXTREMITIES AND [...] Recently Relevant to Health Maintenance Results * Scan Doc: Echo (09/17/2023 12:00 AM EDT) Anatomical Region Laterality Modality Cardiac Other Narrative 09/17/2023 12:00 AM EDT Ordered by an unspecified provider. Scanning Provider MEDIA MGR SCAN EXT O RDR/RSLT * NM PET CT Standard Plus Extremities and Head (09/06/2023 2:45 PM EDT) WORKSTATION ID [id number] RAD Anatomical Region Laterality Modality Positron Emissio [...] who have questions please contact the health transitional care manager that requested your imaging first. ? Narrative 09/10/2023 11:18 AM EDT EXAMINATION: UT PET CT STANDARD PLUS EXTREMITIES AND HEAD CLINICAL HISTORY: Patient 6 months out from completing treatment for diffuse large B-cell lymphoma. ??Now with cutaneous mass on left antecubital and left axillary adenopathy. ??Concern for relapse versus infection C83.38, Diffuse large b-cell lymphoma, lymph nodes of multiple sites - R22.9, Localized swelling, mass and lump, unspecified. TECHNIQUE: Procedure: Following IV injection of 39-dfyjol-4-deoxyglucose (FDG) a standard uptake of approximately 60 [...] unspecified. TECHNIQUE: Procedure: Following IV injection of 54-pwomuo-6-deoxyglucose(FDG) a standard uptake of approximately 60 minutes, [...] patients who have questions please contactthe health transitional care manager that requested your imaging first. Electronically signed by: Rohan Henley MD, [facility]([phone]), at 09/10/2023 11:18 AM Adrianne Ramon MD IMG PET ORDERABL ES * POCT Glucose (09/06/2023 1:06 PM EDT) Only the most recent of2 resultswithin the time period is included. POC Glucose 98 65 - 199 mg/dL [facility] Comment: Supplemental ranges: <140 mg/dL before meals <180 mg/dL all other times of the day Blood 09/06/2023 1:06 PM EDT 09/06/2023 1:06 PM EDT Adrianne Ramon MD POINT OF CARE TE ORDERABLES [facility] [place] [address] * IR Biopsy Lymph Node (Chest/Abdomen/Pelvis) (09/06/2023 [...] period is included. Immunophenotyping Flow See Comment [facility] Comment: When completed by the Pathologist, the Flow Cytometry Report ([id number]) will display under the Pathology Results section within eDH. Other 09/06/2023 12:2 8 PM EDT 09/06/2023 12:47 PM EDT Narrative Resulting Agency Comment Spec In Lab Micha Pearl MD HEMATOLOGY ORDERABLE S [facility] [place] [address] * Flow Cytometry Report (09/06/2023 12:28 PM EDT) Only the most recent of2 resultswithin the time period is included. Flow Cytometry Report [id number] ? Location: 3 The signing pathologist has (i) examined the relevant preparation(s) for the specimen(s) and (ii) rendered or confirmed the diagnosis(es). . ?Flow Cytometry DIAGNOSIS ? 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 See comment. Electronically signed by: ?Dana OCASIO, Filemon Verified: ??09/10/2023 15:05 ??Hematopathologist Performed at: ??-[facility] Dept. of Pathology, [place] [address] Commercial Insulator: Katherine Lopez MD, FCAP, ??CLIA Certificate: [id number] DISCUSSION The T-lymphocytes , B- lymphocytes and [...] by the Clinical Flow Cytometry Laboratory at [facility]. It has not been cleared or approved [...] high complexity clinical laboratory testing. SPECIMEN PROCESSING [id number] Cells for immunophenotypic analysis were derived from LEFT AUX LYMPH NODE. CD45 vs side scatter gating was utilized to identify a LYMPHOID analysis region that comprises approximately 95-97% of all cells. The following markers were assessed: CD2, CD3, CD4, CD5, CD7, CD8, CD10, CD19, CD20, CD23, CD38, CD45, CD56, FMC-7, kappa light chain, and lambda light chain. CLINICAL INFORMATION dlbcl [facility] 09/06/2023 12:2 8 PM EDT Micha Pearl MD PATHOLOGY/CYTOLOGY Souleymane SHAW Performing Organization Address City/State/[facility] Co de Phone Number [facility] [place] [address] * (ABNORMAL) Surgical Pathology Report (09/06/2023 11:35 AM EDT) Surgical Pathology Report [id number] ? Location: [facility] The signing pathologist has (i) examined [...] Filemon Verified: ??09/10/2023 18:38 ??Hematopathologist Performed at: ??-[facility] Dept. of Pathology, [place] [address] Commercial Insulator: Katherine Lopez MD, FCAP, ??CLIA Certificate: [id number] SYNOPTIC THIS RESULT REQUIRES PHYSICIAN/A.P.P. FOLLOW UP [...] lymphoma. ?? Addendum/Separate report to follow. Chele ??MAYNOR et al . 2016 revision WHO of lymphoid neoplasms . Blood . 2016. 127 (20):6118-4643. Rafael CP et al . Blood 103:275-282 [...] submitted in 2 cassettes labeled B1-B2. ??CCP(A) [facility] 09/06/2023 11:3 5 AM EDT James Champion DO PATHOLOGY/CYTOLOGY O RDERABLES Performing Organization Address City/[facility] [place] [address] * Anaerobic Culture (09/06/2023 11:25 AM EDT) Anaerobic Culture No anaerobic organisms isolated [facility] Arm 09/06/2023 11:2 5 AM EDT 09/06/2023 12:21 PM EDT Comment:Left Arm Collection versus mass Narrative Resulting Agency Comment Spec In Lab James Champion DO MICROBIOLOGY - GENER AL ORDERABLES Performing Organization Address [facility]/ZIP Co de Phone Number [facility] [place] [address] * Calcofluor White Stain (09/06/2023 11:25 AM EDT) Calcofluor Stain Calcofluor White Preparation: Negative [facility] Other 09/06/2023 11:2 5 AM EDT 09/06/2023 12:21 PM EDT Comment:Left Arm Collection versus Mass Narrative Resulting Agency Comment Spec In Lab James Champion DO MICROBIOLOGY - GENER AL ORDERABLES Performing Organization Address [facility] Co de Phone Number [facility] [place] [address] * Tissue culture (09/06/2023 11:25 AM EDT) Tissue Culture No growth [facility] Gram Stain Few Neutrophils seen No microorganisms seen. [facility] Arm 09/06/2023 11:2 5 AM EDT 09/06/2023 12:21 PM EDT Comment:Left Arm Collection versus mass Narrative Resulting Agency Comment Spec In Lab James Champion DO MICROBIOLOGY - GENER AL ORDERABLES Performing Organization Address [facility]/ZIP Co de Phone Number [facility] [place] [address] * Specimen to Pathology (09/06/2023 11:20 AM EDT) Only the most recent of2 resultswithin the time period is included. AP Specimen 09/06/2023 11:2 0 AM EDT 09/06/2023 11:20 AM EDT Narrative [facility] - 09/06/2023 11:20 AM EDT Specimen requisition ordered. ??Separate Pathology report to follow James Champion DO PATHOLOGY/CYTOLOGY O RDERABLES Performing Organization Address [facility] Co de Phone Number [facility] [place] [address] * Cytopathology Non-Gynecological (09/06/2023 10:41 AM EDT) AP Specimen 09/06/2023 10:4 1 AM EDT 09/06/2023 10:41 AM EDT Narrative [facility] - 09/06/2023 10:41 AM EDT Specimen requisition ordered. ??Separate Pathology report to follow Micha Pearl MD PATHOLOGY/CYTOLOGY O RDERABLES Performing Organization Address [facility] Co de Phone Number [facility] [place] [address] * (ABNORMAL) Hemogram (09/06/2023 10:12 AM EDT) WBC 6.5 4.0 - 9.5 x10(3)/[facility] RBC 3.98(L) 4.58 - 5.54 x10(6)/[facility] Hemoglobin 12.0(L) 13.7 - 16.5 g/dL [facility] Hematocrit 36.5(L) 40.5 - 48.5 % [facility] MCV 91.7 82.9 - 93.1 [facility] MCH 30.2 27.5 - 32.1 pg [facility] MCHC 32.9 32.0 - 35.7 g/dL [facility] Platelets 145 145 - 357 x10(3)/[facility] RDWSD 48.4(H) 36.0 - 45.0 [facility] RDWCV 14.4(H) 11.4 - 13.8 % [facility] MPV 10.3 7.6 - 12.9 [facility] nRBC % Auto 0.0 % [facility] nRBC Abs Auto 0.000 0.000 - 0.000 x10(3)/[facility] Blood 09/06/2023 10:1 2 AM EDT 09/06/2023 10:16 AM EDT Narrative Resulting Agency Comment Spec In Lab Adrianne Ramon MD HEMATOLOGY ORDER DUONG [facility] [place] [address] * (ABNORMAL) Differential, Automated (09/06/2023 10:12 AM EDT) Neutrophils % 64.9 % [facility] Neutr Abs (ANC) 4.20 1.70 - 6.10 x10(3)/[facility] Lymphocytes % 14.1 % [facility] Lymphocytes Abs 0.9 0.9 - 3.2 x10(3)/[facility] Monocytes % 16.7 % [facility] Monocyte Abs 1.1(H) 0.3 - 0.9 x10(3)/ L [facility] Eosinophils % 3.7 % [facility] Eosinophils Abs 0.2 0.0 - 0.4 x10(3)/[facility] Basophils % 0.3 % [facility] Basophils Abs 0.0 0.0 - 0.1 x10(3)/[facility] Immature Gran % 0.30 % [facility] Comment: Immature granulocytes(IG's)percentage and absolute count will include metamyelocytes, myelocytes, and promyelocytes. Blood smears from CBCs yielding IG's will be scanned manually for concordance. If this scan disagrees with the automated IG or if promyelocytes are noted, a manual differential will be performed. Nellie Gran Abs 0.02 0.00 - 0.04 x10(3)/[facility] Blood 09/06/2023 10:1 2 AM EDT 09/06/2023 10:16 AM EDT Narrative Resulting Agency Comment Spec In Lab Adrianne Ramon MD HEMATOLOGY ORDER DUONG Performing Organization Address City/[facility]/ZIP Co de Phone Number [facility] [place] [address] * Blood culture (09/06/2023 10:12 AM EDT) Blood Culture No growth at 5 days. [facility] Blood ANTECUBITAL REGION STRUCTURE / Unknown 09/06/2023 10:12 AM EDT 09/06/2023 10:31 AM EDT Comment:Peripheral culture Narrative Resulting Agency Comment Spec In Lab Adrianne Ramon MD MICROBIOLOGY - B LOOD ORDERABLES Performing Organization Address City/[facility]/ZIP Co de Phone Number [facility] [place] [address] * (ABNORMAL) Lactate Dehydrogenase (09/06/2023 10:12 AM EDT) LDH 251(H) 110 - 220 unit/L [facility] Blood 09/06/2023 10:1 2 AM EDT 09/06/2023 10:16 AM EDT Narrative Resulting Agency Comment Spec In Lab Adrianne Ramon MD CHEMISTRY ORDERA BLES [facility] [place] [address] * (ABNORMAL) Comprehensive metabolic panel (non-fasting) (09/06/2023 10:12 AM EDT) Only the most recent of2 resultswithin the time period is included. Pathologist [facility] Glucose Lvl 170 65 - 199 mg/dL [facility] Comment:Diabetes: >=200 mg/d L plus symptoms BUN 15 10 - 20 mg/dL [facility] Creatinine 1.07 0.80 - 1.50 mg/dL [facility] Sodium 143 135 - 145 mmol/L [facility] Potassium 3.8 3.5 - 5.0 mmol/L [facility] Comment: Please note: ??Patients with WBC >100,000 may have falsely elevated Potassium levels. ??For accurate Potassium quantification in these patients send serum separator tube (gold top) for subsequent determinations. ??Contact the Clinical Chemistry Laboratory if there are any questions. Chloride 107 98 - 107 mmol/L [facility] CO2 25 22 - 31 mmol/L [facility] Anion Gap 11 5 - 15 mmol/L [facility] Calcium 9.2 8.5 - 10.5 mg/dL [facility] Total Protein 6.1 6.1 - 8.0 g/dL [facility] Albumin 3.7 3.2 - 5.2 g/dL [facility] AST 37 0 - 39 unit/L [facility] ALT 61(H) 0 - 55 unit/L [facility] Alk Phos 151(H) 40 - 130 unit/L [facility] Total Bilirubin 0.3 0.2 - 1.3 mg/dL [facility] Estimated GFR 72 >=60 mL/min/1. 73 m?? [place] [...] CHEMISTRY ORDERA BLES Performing Organization Address City/[facility]/ZIP Co de Phone Number [facility] [place] [address] * CBC (with Diff) (08/22/2023) WBC 8.12 Hemoglobin 13.2 Hematocrit 38.4 Platelets 199 Neutr Abs (ANC) 6.02 Blood 08/22/2023 Jaquelin Marquez MD HEMATOLOGY ORDERA BLES * Hepatitis C Antibody (10/17/2022 11:45 AM EDT) Hepatitis C Ab Negative Negative [facility] Blood 10/17/2022 11:4 5 AM EDT 10/17/2022 12:08 PM EDT Narrative Resulting Agency Comment Spec In Lab Adrianne Ramon MD IMMUNOLOGY ORDER DUONG Performing Organization Address City/[facility]/ZIP Co [place] [address] from Last 3 Months or Most Recently Relevant to Health Maintenance Advance Directives Documents on File Type Date Recorded Patient Aoc Director Intelligence Officer Expl anation POLST/COLST (Order for Life Sustaining [...] Status decision made by: Patient Care Teams Model And Pattern Supervisor Relationship Specialty Start Date End Date Frederick Meade MD [address] [place] [address] PCP - General Family Medicine 11/29/17
--- OUTSIDE RECORDS SUMMARY | 2023-09-19 02:33 | XMS_ITS | Encounter Summary ---
Author Organization [facility] Address [facility] [place] [address] Care Team Providers Care Hand Inserter Operator Name Role Phone Frederick Meade MD Primary Care Provider [phone] Encounter Details Date Type Department Care Team (Late st Contact Info) Description 09/12/2023 Telephone Hematology/Oncology at [address] [phone] Adrianne Ramon MD [facility] DR [place] [address] Social History Tobacco Use Types Packs/Day Years [...] 8:00 AM EDT Infusion Hematology Oncology at [address] [phone] 09/21/2023 9:30 AM EDT Office Visit Hematology [place] [address] Micha Givens Jr., MD [facility] DR [place] [address] 09/21/2023 10:30 AM EDT Clinical Support Hematology [place] [address] Danii Her RN 09/26/2023 8:30 AM EDT Infusion Hematology Oncology at [address] [phone] 10/03/2023 9:00 AM EDT Office Visit Hematology/Oncology at [address] [phone] Adrianne Ramon MD [facility] DR HEMATOLOGY [place] [address] Yael Merlos, KARLA [facility] [place] [address] 10/03/2023 9:30 AM EDT Infusion Hematology Oncology at [address] [phone] 10/10/2023 8:30 AM EDT Infusion Hematology Oncology at [address] [phone] documented as of this encounter Visit Diagnoses Diagnosis 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 documented in this encounter Care Teams Hand Inserter Operator Relationship Specialty Start Date End Date Frederick Meade MD [address] [place] [address] PCP - General Family Medicine 11/29/17 documented as of this encounter
--- OUTSIDE RECORDS SUMMARY | 2023-09-19 02:33 | XMS_ITS | Encounter Summary ---
Author Organization [facility] [place] [address] Care Team Providers Care Commercial Collections Driver Name Role Phone Frederick Meade MD Primary Care Provider [phone] [phone] Reason for Visit * Diagnostic Test (Routine) - Closed Specialty Diagnoses / Procedures Referred By Contac t Referred To Contact Radiology Diagnoses 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 Skin nodule Procedures NM PET CT Standard Plus Extremities and Head Adrianne Ramon MD [facility] DR HEMATOLOG[place] [address] [place] [address] Referral ID Status Reason Start Date Expiration Date V isits Requested Visits Authorized [id number] Closed Specialty Service Requested 08/22/2023 02/21/2025 1 1 Encounter Details Date Type Department Care Team (Late st Contact Info) Description 09/06/2023 1:00 PM EDT - 09/06/2023 11:59 PM EDT Hospital Encounter [place] [address] Adrianne Ramon MD [facility] DR HEMATOLOGY [place] [address] Discharge Disposition: Home Social History [...] AM EDT Infusion Hematology Oncology at [address] [phone] 09/21/2023 9:30 AM EDT Office Visit Hematology [place] [address] Micha Givens Jr., MD [facility] DR HEMATOLOGY [place] [address] 09/21/2023 10:30 AM EDT Clinical Support Hematology [place] [address] Danii Her, RN 09/26/2023 8:30 AM EDT Infusion Hematology Oncology at [address] [phone] 10/03/2023 9:00 AM EDT Office Visit Hematology/Oncology at [address] [address] Adrianne Ramon MD [facility] HEMATOLOGY [place] [address] Yael Merlos, ELECTRIC SYSTEM OPERATOR [facility] HEMATOLOGY [place] [address] 10/03/2023 9:30 AM EDT Infusion Hematology Oncology at [address] [address] 10/10/2023 8:30 AM EDT Infusion Hematology Oncology at [address] [address] documented as of this encounter Procedures Procedure [...] POC Glucose 98 65 - 199 mg/dL [facility] Comment: Supplemental ranges: <140 mg/dL before meals <180 mg/dL all other times of the day Blood 09/06/2023 1:06 PM EDT 09/06/2023 1:06 PM EDT Adrianne Ramon MD POINT OF CARE TE ST ORDERABLES Performing Organization Address City/[facility]/ZIP Co de Phone Number [facility] [place] [address] * POCT Glucose (09/06/2023 10:41 AM EDT) POC Glucose 142 65 - 199 mg/dL [facility] Comment: Supplemental ranges: <140 mg/dL before meals <180 mg/dL all other times of the day Blood 09/06/2023 10:4 1 AM EDT 09/06/2023 10:41 AM EDT Adrianne Ramon MD POINT OF CARE [place] [address] documented in this encounter Visit Diagnoses Not on filedocumented in this encounter Care Teams Commercial Collections Driver Relationship Specialty Start Date End Date Frederick Meade MD [address] [place] [address] PCP - General Family Medicine 11/29/17 documented as of this encounter
--- OUTSIDE RECORDS SUMMARY | 2023-09-19 02:33 | XMS_ITS | Encounter Summary ---
Author Organization [facility] [address] Care Team Providers Care Food And Beverage Assistant Name Role Phone Frederick Meade MD Primary Care Provider [phone] [phone] Encounter Details Date Type Department Care Team (Latest Contact Info) Description 09/06/2023 9:48 AM EDT - 09/06/2023 10:14 AM EDT Hospital Encounter [place]ology [place] [address] Diffuse large B-cell lymphoma of lymph nodes [...] AM EDT Infusion Hematology Oncology at [address] [phone] 09/21/2023 9:30 AM EDT Office Visit [place]ology [place] [address] Micha Givens Jr., MD [facility] DR HEMATOLOGY [place] [address] 09/21/2023 10:30 AM EDT Clinical Support [place] [address] Danii Her RN 09/26/2023 8:30 AM EDT Infusion Hematology Oncology at [address] [phone] 10/03/2023 9:00 AM EDT Office Visit Hematology/Oncology at [address] [phone] Adrianne Ramon MD [facility] DR HEMATOLOGY [place] [address] Yael Merlos APRN [facility] DR HEMATOLOGY [place] [address] 10/03/2023 9:30 AM EDT Infusion Hematology Oncology at [address] [phone] 10/10/2023 8:30 AM EDT Infusion Hematology Oncology at [address] [address] documented as of this encounter Procedures Procedure [...] 10:12 AM EDT) Neutrophils % 64.9 % [facility] Neutr Abs (ANC) 4.20 1.70 - 6.10 x10(3)/[facility] Lymphocytes % 14.1 % [facility] Lymphocytes Abs 0.9 0.9 - 3.2 x10(3)/[facility] Monocytes % 16.7 % [facility] Monocyte Abs 1.1(H) 0.3 - 0.9 x10(3)/[facility] Eosinophils % 3.7 % [facility] Eosinophils Abs 0.2 0.0 - 0.4 x10(3)/[facility] Basophils % 0.3 % [facility] Basophils Abs 0.0 0.0 - 0.1 x10(3)/[facility] Immature Gran % 0.30 % [facility] Comment: Immature granulocytes(IG's)percentage and absolute count will include metamyelocytes, myelocytes, and promyelocytes. Blood smears from CBCs yielding IG's will be scanned manually for concordance. If this scan disagrees with the automated IG or if promyelocytes are noted, a manual differential will be performed. Nellie Gran Abs 0.02 0.00 - 0.04 x10(3)/ L [facility] Blood 09/06/2023 10:1 2 AM EDT 09/06/2023 10:16 AM EDT Narrative Resulting Agency Comment Spec In Lab Adrianne Ramon MD HEMATOLOGY ORDER DUONG [facility] [place] [address] * (ABNORMAL) Hemogram (09/06/2023 10:12 AM EDT) WBC 6.5 4.0 - 9.5 x10(3)/[facility] RBC 3.98(L) 4.58 - 5.54 x10(6)/[facility] Hemoglobin 12.0(L) 13.7 - 16.5 g/dL [facility] Hematocrit 36.5(L) 40.5 - 48.5 % [facility] MCV 91.7 82.9 - 93.1 [facility] MCH 30.2 27.5 - 32.1 pg [facility] MCHC 32.9 32.0 - 35.7 g/dL [facility] Platelets 145 145 - 357 x10(3)/[facility] RDWSD 48.4(H) 36.0 - 45.0 [facility] RDWCV 14.4(H) 11.4 - 13.8 % [facility] MPV 10.3 7.6 - 12.9 [facility] nRBC % Auto 0.0 % [facility] nRBC Abs Auto 0.000 0.000 - 0.000 x10(3)/[facility] Blood 09/06/2023 10:1 2 AM EDT 09/06/2023 10:16 AM EDT Narrative Resulting Agency Comment Spec In Lab Adrianne Ramon MD HEMATOLOGY ORDER DUONG [facility] [place] [address] * (ABNORMAL) Lactate Dehydrogenase (09/06/2023 10:12 AM EDT) Pathologist [facility] LDH 251(H) 110 - 220 unit/L [facility] Blood 09/06/2023 10:1 2 AM EDT 09/06/2023 10:16 AM EDT Narrative Resulting Agency Comment Spec In Lab Adrianne Ramon MD CHEMISTRY ORDERA BLES [facility] [place] [address] * (ABNORMAL) Comprehensive metabolic panel (non-fasting) (09/06/2023 10:12 AM EDT) [facility] Glucose Lvl 170 65 - 199 mg/dL [facility] Comment:Diabetes: >=200 mg/d L plus symptoms BUN 15 10 - 20 mg/dL [facility] Creatinine 1.07 0.80 - 1.50 mg/dL [facility] Sodium 143 135 - 145 mmol/L [facility] Potassium 3.8 3.5 - 5.0 mmol/L [facility] Comment: Please note: ??Patients with WBC >100,000 may have falsely elevated Potassium levels. ??For accurate Potassium quantification in these patients send serum separator tube (gold top) for subsequent determinations. ??Contact the Clinical Chemistry Laboratory if there are any questions. Chloride 107 98 - 107 mmol/L [facility] CO2 25 22 - 31 mmol/L [facility] Anion Gap 11 5 - 15 mmol/L [facility] Calcium 9.2 8.5 - 10.5 mg/dL [facility] Total Protein 6.1 6.1 - 8.0 g/dL [facility] Albumin 3.7 3.2 - 5.2 g/dL [facility] AST 37 0 - 39 unit/L [facility] ALT 61(H) 0 - 55 unit/L [facility] Alk Phos 151(H) 40 - 130 unit/L [facility] Total Bilirubin 0.3 0.2 - 1.3 mg/dL [facility] Estimated GFR 72 >=60 mL/min/1. 73 m?? [facility] Comment: This patient's estimated GFR [...] MD CHEMISTRY ORDERA BLES Performing Organization Address City/[facility]/ZIP Co de Phone Number [facility] [place] [address] * Blood culture (09/06/2023 10:12 AM EDT) Blood Culture No growth at 5 days. 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
--- OUTSIDE RECORDS SUMMARY | 2023-09-19 02:33 | XMS_ITS | Encounter Summary ---
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 Procedures IR Mediport Removal Yael Merlos WEIGHT LOSS COUNSELOR [facility] DR HEMATOLOGY [place] [address] [facility] [place] [place] [address] Referral ID Status Reason Start Date Expiration Date V isits Requested Visits Authorized [id number] Closed Specialty Service Requested 03/15/2023 09/12/2024 1 1 Reason for Visit * Diagnostic Test (Routine) - Closed Specialty Diagnoses / Procedures Referred By Contac t Referred To Contact Radiology Diagnoses 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 Procedures IR Mediport Removal Yael Merlos WEIGHT LOSS COUNSELOR [facility] H[place]ATOLOGY [place] [address] [facility] [place] [address] Referral ID Status Reason Start Date Expiration Date V isits Requested Visits Authorized [id number] Closed Specialty Service Requested 03/15/2023 09/12/2024 1 1 Encounter Details Date Type Department Care Team (Latest Contact Info) Description 03/29/2023 12:51 PM EST - 03/29/2023 11:59 PM EST Hospital Encounter Radiology at [facility] [place] [address] Yael Merlos APRN [facility] DR HEMATOLOGY [place] [address] Diffuse large B-cell lymphoma of lymph nodes [...] Zacarias RN - 03/29/2023 2:08 PM EST [facility] Vascular and Interventional Radiology Discharge Instructions [...] not peel them off. There may be [place]mcqueen (skin glue) also, allow this to flake [...] is during regular office hours, please call [phone]. If it is after regular office hours, or on weekends or holidays, please call [phone] and ask to speak to the Engineer Fishing Vessel scullion chief for Interventional Radiology. You have received medication [...] of : 1950 AGE: 72 y.o. Address: [address] [place] [address] Phone: [phone] (home) Mobile: Telephone Information: Referring Provider: Yael Merlos REASON FOR VISIT: Order Questions Answers Where will study be performed? [facility] Radiology [120] Reason for exam and clinical [...] 8:00 AM EDT Infusion Hematology Oncology at [address] [phone] 09/21/2023 9:30 AM EDT Office Visit Hematology [place] [address] Micha Givens Jr., MD [facility] DR HEMATOLOGY [place] [address] 09/21/2023 10:30 AM EDT Clinical Support Hematology [place] [address] Danii Her, RN 09/26/2023 8:30 AM EDT Infusion Hematology Oncology at [address] [phone] 10/03/2023 9:00 AM EDT Office Visit Hematology/Oncology at [address] [address] Adrianne Ramon MD [facility] DR HEMATOLOGY [place] [address] Yael Merlos APRN [facility] DR HEMATOLOGY AND ONCOLOGY [facility] [place] [address] 10/03/2023 9:30 AM EDT Infusion Hematology Oncology at [address] [phone] 10/10/2023 8:30 AM EDT Infusion Hematology Oncology at [address] [phone] documented as of this encounter Procedures Procedure [...] port explant Indication: Lymphoma, therapy complete, discontinue fci central venous access for chemotherapy Pre-procedure: Informed [...] venous port with all components accounted for. bullet charging machine operator: ??Chalo Crews PA-C Attending of record: Ole Arvizu MD 03/29/2023 Yael Merlos WEIGHT LOSS COUNSELOR IMG IR ORDERABLES documented in this encounter [...] section) documented in this encounter Care Teams Prototype Engineer Manager Relationship Specialty Start Date End Date Frederick Meade MD [address] [place] [address] PCP - General Family Medicine 11/29/17 documented as of this encounter
--- OUTSIDE RECORDS SUMMARY | 2023-09-19 02:33 | XMS_ITS | Encounter Summary ---
[place] [address] Care Team Providers Care Division Plant Engineer Name Role Phone Frederick Meade MD Primary Care Provider [phone] Reason for Referral * Diagnostic Test (Routine) - Closed Specialty Diagnoses / Procedures Referred By Contac t Referred To Contact Radiology Diagnoses 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 Skin nodule Procedures NM PET CT Standard Plus Extremities and Head Adrianne Ramon MD [facility] DR [place] [address] [place] [address] Referral ID Status Reason Start Date Expiration Date V isits Requested Visits Authorized [id number] Closed Specialty Service Requested 08/22/2023 02/21/2025 1 1 Reason for Visit * Diagnostic Test (Routine) - Closed Specialty Diagnoses / Procedures Referred By Contac t Referred To Contact Radiology Diagnoses 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 Skin nodule Procedures NM PET CT Standard Plus Extremities and Head Adrianne Ramon MD [facility] DR [place] [address] [place] [address] Referral ID Status Reason Start Date Expiration Date V isits Requested Visits Authorized [id number] Closed Specialty Service Requested 08/22/2023 02/21/2025 1 1 Encounter Details Date Type Department Care Team (Jaciel teixeira Contact Info) Description 09/06/2023 12:59 PM EDT Hospital En[place] [address] Adrianne Ramon MD [facility] DR [place] [address] Diffuse large B-cell lymphoma of lymph nodes [...] 8:00 AM EDT Infusion Hematology Oncology at [address] [address] 09/21/2023 9:30 AM EDT Office Visit Hematology [place] [phone] Micha Givens Jr., MD [facility] DR [place] [address] 09/21/2023 10:30 AM EDT Clinical Support Hematology [place] [phone] Danii Her RN 09/26/2023 8:30 AM EDT Infusion Hematology Oncology at [address] [address] 10/03/2023 9:00 AM EDT Office Visit Hematology/Oncology at [address] [address] Adrianne Ramon MD [facility] [place] [address] Yael Merlos APRN [facility] [place] [address] 10/03/2023 9:30 AM EDT Infusion Hematology Oncology at [address] [address] 10/10/2023 8:30 AM EDT Infusion Hematology Oncology at [address] [address] documented as of this encounter Procedures Procedure Name Priority Date/Time Associated Diagnosis Comments NM PET CT STANDARD PLUS EXTREMITIES AND HEAD Routine 09/06/2023 2:45 PM EDT 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 Skin nodule documented in this encounter Results * NM PET CT Standard Plus Extremities and Head (09/06/2023 2:45 PM EDT) WORKSTATION ID [id number] RAD Anatomical Region Laterality Modality Positron Emissio [...] who have questions please contact the health congregational care pastor that requested your imaging first. ? Narrative [...] unspecified. TECHNIQUE: Procedure: Following IV injection of 16-brzapx-9-deoxyglucose (FDG) a standard uptake of approximately 60 [...] unspecified. TECHNIQUE: Procedure: Following IV injection of 76-ugkkgm-7-deoxyglucose(FDG) a standard uptake of approximately 60 minutes, [...] patients who have questions please contactthe health congregational care pastor that requested your imaging first. Adrianne Ramon [...] Arm documented in this encounter Care Teams Division Plant Engineer Relationship Specialty Start Date End Date Frederick Meade MD [address] [place] [address] [address] [facility] [address] [place] [address] PCP - General Family Medicine 11/29/17 documented as of this encounter
--- OUTSIDE RECORDS SUMMARY | 2023-09-19 02:33 | XMS_ITS | Encounter Summary ---
Author Organization [facility] [place] [address] Care Team Providers Care Nutritional Services Director Name Role Phone Frederick Meade MD Primary Care Provider [phone] Encounter Details Date Type Department Care Team [...] 8:00 AM EDT Infusion Hematology Oncology at [address] [phone] 09/21/2023 9:30 AM EDT Office Visit Hematology [place] [address] Micha Givens Jr., MD [facility] [place] [address] 09/21/2023 10:30 AM EDT Clinical Support Hematology [place] [address] Danii Her RN 09/26/2023 8:30 AM EDT Infusion Hematology Oncology at [address] [phone] 10/03/2023 9:00 AM EDT Office Visit Hematology/Oncology at [address] [phone] Adrianne Ramon MD [facility] [place] [address] Yael Merlos APRN [facility] [place] [address] 10/03/2023 9:30 AM EDT Infusion Hematology Oncology at [address] [phone] 10/10/2023 8:30 AM EDT Infusion Hematology Oncology at [address] [address] documented as of this encounter Visit Diagnoses Not on filedocumented in this encounter Care Teams Nutritional Services Director Relationship Specialty Start Date End Date Frederick Meade MD [address] [place] [address] PCP - General Family Medicine 11/29/17 documented as of this encounter
--- OUTSIDE RECORDS SUMMARY | 2023-09-19 02:33 | XMS_ITS | Encounter Summary ---
Author Organization [facility] Address [facility] [place] [address] Care Team Providers Care Beauty Therapist Name Role Phone Frederick Meade MD Primary Care Provider [phone] Reason for Visit * Reason Onset Date Comments Other 09/13/2023 Financial paperw ork Encounter Details Date Type Department Care Team (Late st Contact Info) Description 09/13/2023 Telephone Hematology/Oncology at [address] [address] Colt Ardon, RN Other (Financial [...] Completed BMS Access Support forms faxed to [phone], fax confirmed. Copy of application and supporting financial docs scanned into media for reference. documented in this encounter Plan of Treatment Upcoming Encounters Date Type Department Care Team (Late st Contact Info) Description 09/19/2023 8:00 AM EDT Infusion Hematology Oncology at [address] [address] 09/21/2023 9:30 AM EDT Office Visit [place]ematology [place] [address] Micha Givens Jr., MD [facility] DR HEMATOLOGY [place] [address] 09/21/2023 10:30 AM EDT Clinical Support [place]ematology [place] [address] Danii Her RN 09/26/2023 8:30 AM EDT Infusion Hematology Oncology at [address] [address] 10/03/2023 9:00 AM EDT Office Visit Hematology/Oncology at [address] [phone] Adrianne Ramon MD [facility] HEMATOLOGY [place] [address] Yael Merlos [address]N [facility] HEMATOLOGY [place] [address] 10/03/2023 9:30 AM EDT Infusion Hematology Oncology at [address] [address] 10/10/2023 8:30 AM EDT Infusion Hematology Oncology at [address] [phone] documented as of this encounter Visit Diagnoses Not on filedocumented in this encounter Care Teams Beauty Therapist Relationship Specialty Start Date End Date Frederick Meade MD [address] [place] [address] PCP - General Family Medicine 11/29/17 documented as of this encounter
--- OUTSIDE RECORDS SUMMARY | 2023-09-19 02:33 | XMS_ITS | Encounter Summary ---
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 Skin nodule Procedures IR Biopsy Lymph Node (Chest/Abdomen/Pelvis) IR Biopsy Lymph Node (Head/Neck) Adrianne Ramon MD [facility] DR HEMATOLOGY [place] [address] [place] [address] Referral ID Status Reason Start Date Expiration Date V isits Requested Visits Authorized [id number] Closed Specialty Service Requested 08/22/2023 02/21/2025 1 1 * Diagnostic Test (Routine) - Closed Specialty Diagnoses / Procedures Referred By Contac t Referred To Contact Radiology Diagnoses 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 Skin nodule Procedures NM PET CT Standard Plus Extremities and Head Adrianne Ramon MD [facility] DR HEMATOLOGY [place] [address] [place] [address] Referral ID Status Reason Start Date Expiration Date V isits Requested Visits Authorized [id number] Closed Specialty Service Requested 08/22/2023 02/21/2025 1 1 Encounter Details Date Type Department Care Team (Late st Contact Info) Description 08/22/2023 12:30 PM EDT Office Visit Hematology/Oncology at [address] [address] Adrianne Ramon MD [facility] DR HEMATOLOGY [place] [address] Yael Merlos APRN [facility] HEMATOLOGY [place] [address] Diffuse large B-cell lymphoma of lymph nodes [...] for further imaging at this time. * Adiranne Ramon MD - 08/22/2023 12:30 PM EDT Hematology Clinic [facility] [place] [address] HEMATOLOGY PATIENT EVALUATION PROBLEM LIST: Patient Active [...] to consultation, he saw [facility] and when to [facility]. No beds so sent to [facility] for [address] CAP, MRI, [...] days with nice response. Pathology from [facility] reports large B-cell lymphoma. Double expresser. FISH for translocations are pending. Tongue swelling. No wt loss. Eating and drinking OK. No fevers, infections, No NS. Pain in neck. Prednisone 60mg daily X 7 days. I feel great on prednisone last day of prednisone is today. Took iron supplements per PCP - unclear cause. - last COLO at [facility] was 01/17/2012. INTERIM HISTORY OF PRESENT ILLNESS: [...] and needle of cervical LN. FISH from [place] No MYCrearrangement and no fusion of MYC [...] only 1 biologic. Son Cheo Freire. Enjoys Conject, movies, race car, cards. [employer]. 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 Not a . ETOH: 1-3 beers per week Smoking: Quit 1985. Approximately [id number] history Vaping or electronic cigarettes: denies Chewing [...] is a delightful 73-year old male in [facility]. He is accompanied to the clinic [...] and BCL-2 protein (Double Expressor.) Flow cytometry ([id number]) supports this interpretation. FISH from [place] No MYC rearrangement and no fusion of MYC and IGH was observed, CD3 (SP7, Thermo Scientific) Background T-cells CD20 (L26, [place]) diffusely positive in Neoplastic B-cells PAX-5 (1EW, Leica) diffusely positive in Neoplastic B-cells CD10 (SP67, [place]) Negative BCL-6 (G/191E/A8, [place]) Positive MUM-1 (MUM1p, Dako) Positive Myc (Y69, Abcam) Positive BCL-2 Oncoprotein (124, [place]) Positive Ki67 (MIB-1) (K2, Leica) Greater than 95% of cells in cycle Cyclin D1(SP4-R, [place]) Negative SAPPHIRE JOSE (ACE7181-R, Leica) Negative. DIAGNOSTICS: 01/25/23 ECHO after C#5 [...] 08/22/2023 left upper extremity ultrasound performed at [facility] Notable findings: In the left antecubital fossa [...] undergo investigation with ultrasound. CT CAP at [facility], report and images have been requested. [...] listed above with ultrasound done today at [facility]. See report in scanned documents. This may represent a recurrence, but it could also be infectious. I spoke to Dr. Bruce Husain at [facility], who recommended large core needle biopsy. [...] keep. We will also do labs at [facility] on day of bio psies. Cardiac -Cheo [...] LVEF at 50-55%. --asymptomatic --repeat echo at [facility] 1 year post completion of therapy [due [...] - [address] at [facility] Surveillance every 3 mos for first year [...] AM EDT Infusion Hematology Oncology at [address] [address] 09/21/2023 9:30 AM EDT Office Visit [place] [address] Micha Givens Jr., MD [facility] DR HEMATOLOGY [place] [address] 09/21/2023 10:30 AM EDT Clinical Support [place] [address] Danii Her RN 09/26/2023 8:30 AM EDT Infusion Hematology Oncology at [address] [address] 10/03/2023 9:00 AM EDT Office Visit Hematology/Oncology at [address] [address] Adrianne Ramon MD [facility] HEMATOLOGY [place] [address] Yael Merlos APRN [facility] HEMATOLOGY [place] [address] 10/03/2023 9:30 AM EDT Infusion Hematology Oncology at [address] [phone] 10/10/2023 8:30 AM EDT Infusion Hematology Oncology at [address] [phone] documented as of this encounter Procedures Procedure Name Priority Date/Time Associated Diagnosis Comments CBC (WITH DIFF) Routine 08/22/2023 COMPREHENSIVE METABOLIC PANEL (NON-FASTING) Routine 08/22/2023 documented in this encounter Results * NM PET CT Standard Plus Extremities and Head (09/06/2023 2:45 PM EDT) [facility] WORKSTATION ID [id number] DH RAD Anatomical Region Laterality Modality Positron [...] have questions please contact the health rn managed care that requested your imaging first. ? Electronically signed by: Rohan Henley MD, [facility] ([phone]), at 09/10/2023 11:18 AM Narrative 09/10/2023 11:18 [...] unspecified. TECHNIQUE: Procedure: Following IV injection of 81-jcqrrm-0-deoxyglucose (FDG) a standard uptake of approximately 60 [...] unspecified. TECHNIQUE: Procedure: Following IV injection of 63-dmbybm-3-deoxyglucose(FDG) a standard uptake of approximately 60 minutes, [...] who have questions please contactthe health rn managed care that requested your imaging first. Electronically signed by: Rohan Henley MD, [facility]([phone]), at 09/10/2023 11:18 AM Adrianne Ramon MD [...] - B LOOD ORDERABLES Performing Organization Address City/[facility]/ZIP Co de Phone Number [facility] [place] [address] * (ABNORMAL) Lactate Dehydrogenase (09/06/2023 10:12 AM EDT) LDH 251(H) 110 - 220 unit/L [facility] Blood 09/06/2023 10:1 2 AM EDT 09/06/2023 10:16 AM EDT Narrative Resulting Agency Comment Spec In Lab Adrianne Ramon MD CHEMISTRY ORDERA BLES Performing Organization Address City/[facility]/ZIP Co de Phone Number [facility] [place] [address] * (ABNORMAL) Comprehensive metabolic panel (non-fasting) (09/06/2023 [...] CHEMISTRY ORDERA BLES [facility] [place] [address] * Comprehensive metabolic panel (non-fasting) (08/22/2023) Creatinine [...] lump documented in this encounter Care Teams Pinion Sorter Relationship Specialty Start Date End Date Frederick Meade MD [employer] [address] [facility] [address] [place] [address] PCP - General Family Medicine 11/29/17 documented as of this encounter
--- OUTSIDE RECORDS SUMMARY | 2023-09-19 02:33 | XMS_ITS | Encounter Summary ---
Author Organization [facility] [place] [address] Care Team Providers Care Sapphire Stylus Grinder Name Role Phone Frederick Meade MD Primary Care Provider [phone] Encounter Details Date Type Department Care Team (Late st Contact Info) Description 09/14/2023 Telephone Hematology/Oncology at [address] [address] Brenda Priest, RN Social History [...] Priest RN - 09/14/2023 3:11 PM EDT ADD:Sent email to [employer] they will contact [employer] to see what they can get for money for pt. They will update us. Received call from Donita Jimenez At [employer] ([phone]) stating that they received the application for patient financial assistance for Revlimid. States that there is a Revlimid prescription claim in [facility] which is showing that the patient has met his OOP max. She suggests that we call [facility] and ask that they reverse the claim because patient hasn't received drug. This willallow them to see what his co-pay will be so that they can determine eligibility for financial assistance and free drug. RN call to [facility] pharmacy spoke with infusion pharmacist who states that the claim was reversed on their end on 09/11 at 5pm. Suggests that I call his insurance to discuss and ask them to reverse the claim. Call to [employer] ([phone]) spoke with someone who transferred me to [facility].Spoke with Marcos at [employer], pharmacy services for claim reversal. Also states that the claim was reversed by [facility] on 09/11, no claim in process at this time. Call to [employer] support, spoke with Donita Jimenez - states that this patient is qualified for a toi.They need to apply for this open toi to try before being able to get free drug. [employer] - [phone] or healthwellfoundation.org - can apply by phone or website. documented in this encounter Plan of Treatment Upcoming Encounters Date Type Department Care Team (Late st Contact Info) Description 09/19/2023 8:00 AM EDT Infusion Hematology Oncology at [address] [address] 09/21/2023 9:30 AM EDT Office Visit Hematology [place] [address] Micha Givens Jr., MD [facility] DR HEMATOLOGY [place] [address] 09/21/2023 10:30 AM EDT Clinical Support Hematology [place] [address] Danii Her RN 09/26/2023 8:30 AM EDT Infusion Hematology Oncology at [address] [address] 10/03/2023 9:00 AM EDT Office Visit Hematology/Oncology at [address] [phone] Adrianne Ramon MD [facility] DR HEMATOLOGY [place] [address] Yael Merlos APRN [facility] DR HEMATOLOGY [place] [address] 10/03/2023 9:30 AM EDT Infusion Hematology Oncology at [address] [address] 10/10/2023 8:30 AM EDT Infusion Hematology Oncology at [address] [phone] documented as of this encounter Visit Diagnoses Not on filedocumented in this encounter Care Teams Sapphire Stylus Grinder Relationship Specialty Start Date End Date Frederick Meade MD [address] [place] [address] PCP - General Family Medicine 11/29/17 documented as of this encounter
--- OUTSIDE RECORDS SUMMARY | 2023-09-19 02:33 | XMS_ITS | Encounter Summary ---
[place] [address] Care Team Providers Care Electric Motor Fitter Name Role Phone Frederick Meade MD Primary Care Provider [phone] Reason for Visit * Diagnostic Test (Routine) - Closed Specialty Diagnoses / Procedures Referred By Contac t Referred To Contact Radiology Diagnoses 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 Procedures NM PET CT Skull Base to Mid-thigh Yael Merlos [address] [facility] [place] [address] [place] [address] Referral ID Status Reason Start Date Expiration Date V isits Requested Visits Authorized [id number] Closed Specialty Service Requested 01/15/2023 07/15/2024 1 1 Encounter Details Date Type Department Care Team (Latest Contact Info) Description 03/06/2023 7:52 AM EST - 03/06/2023 11:59 PM [facility] Hospital Encounter [place] [address] Yael Merlos [facility] [place] [address] Discharge Disposition: Home Social History [...] AM EDT Infusion Hematology Oncology at [address] [address] 09/21/2023 9:30 AM EDT Office Visit Hematology [place] [address] Micha Givens Jr., MD [facility] [address] [place] [address] 09/21/2023 10:30 AM EDT Clinical Support Hematology [place] [address] Danii Her RN 09/26/2023 8:30 AM EDT Infusion Hematology Oncology at [address] [address] 10/03/2023 9:00 AM EDT Office Visit Hematology/Oncology at [address] [address] Adrianne Ramon MD [facility] [place] [address] Yael Merlos APRN [facility] [place] [address] 10/03/2023 9:30 AM EDT Infusion Hematology Oncology at [address] [phone] 10/10/2023 8:30 AM EDT Infusion Hematology Oncology at [address] [phone] documented as of this encounter Procedures Procedure Name Priority Date/Time Associated Diagnosis Comments NM PET CT SKULL BASE TO MID-THIGH ([facility]) Routine 03/06/2023 9:17 AM EST 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 POCT GLUCOSE Routine 03/06/2023 8:05 AM EST documented in this encounter Results * POCT Glucose (03/06/2023 8:05 AM EST) POC Glucose 126 65 - 199 mg/dL [facility] Comment: Supplemental ranges: <140 mg/dL before meals <180 mg/dL all other times of the day Blood 03/06/2023 8:05 AM EST 03/06/2023 8:05 AM EST Yael Merlos APRN POINT OF CARE TEST ORDERABLES [facility] [place] [address] documented in this encounter Visit Diagnoses Not on filedocumented in this encounter Care Teams Electric Motor Fitter Relationship Specialty Start Date End Date Frederick Meade MD [address] [place] [address] PCP - General Family Medicine 11/29/17 documented as of this encounter
--- OUTSIDE RECORDS SUMMARY | 2023-09-19 02:33 | XMS_ITS | Encounter Summary ---
Author Organization [facility] [place] [address] Care Team Providers Care Inspector Timers Name Role Phone Frederick Meade MD Primary Care Provider [phone] Encounter Details Date Type Department Care Team [...] AM EDT Infusion Hematology Oncology at [address] [phone] 09/21/2023 9:30 AM EDT Office Visit Hematology [place] [address] Micha Givens Jr., MD [facility] [place] [address] 09/21/2023 10:30 AM EDT Clinical Support Hematology [place] [address] Danii Her RN 09/26/2023 8:30 AM EDT Infusion Hematology Oncology at [address] [phone] 10/03/2023 9:00 AM EDT Office Visit Hematology/Oncology at [address] [phone] Adrianne Ramon MD [facility] [place] [address] Yael Merlos APRN [facility] [place] [address] 10/03/2023 9:30 AM EDT Infusion Hematology Oncology at [address] [phone] 10/10/2023 8:30 AM EDT Infusion Hematology Oncology at [address] [phone] documented as of this encounter Visit Diagnoses Not on filedocumented in this encounter Care Teams Inspector Timers Relationship Specialty Start Date End Date Frederick Meade MD [address] [place] [address] PCP - General Family Medicine 11/29/17 documented as of this encounter
--- OUTSIDE RECORDS SUMMARY | 2023-09-19 02:33 | XMS_ITS ---
[place] [address] Care Team Providers Care Spinner Box Name Role Phone Frederick Meade MD Primary Care Provider +[phone] Active Problems Problem Noted Date Diagnosed Date Abnormal echocardiogram 11/20/2022 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 10/10/2022 Anemia, iron deficiency 08/21/2018 Gout 05/31/2017 Malignant neoplasm of prostate 09/01/2014 Current Oncology Plans [facility] HEM LYMPHOMA (HEMATOLOGIC MALIGNANCIES) - riTUXimab [...] Treatment Medications Discontinue Reason Plan Provider Cycles [facility] HEM LYMPHOMA (NHL) - R-CHOP (21 DAY) 10/19/19 23 06/22/2023 cycloPHOSphamide (Cytoxan) in sodium chloride 0.9% 250 mL infusionDOXOrubicin (Adriamycin)riTUXimab -pvvr (Ruxience) (2 mg/mL) in sodium chloride 0.9% infusionvinCRIStine (Oncovin) in sodium chloride 0.9% 25 mL infusion Therapy Complete Adrianne Ramon MD 6 of 6 cycles started Radiation Treatments * No radiation treatments are documented for this patient in [facility]. Treatments may have been administered in another [...] Biopsy 09/01/2014 Volume in cc 15 cc Coarsegold grade/score a+b=c 4+3=7-- intermediate risk prostate cancer [...] Potential late effects of treatment(s): Late and extermination inspector effects or radiation therapy to the prostate [...] Findings and based on age. Nutrition--Follow the [place] [employer] Guidelines that include the following: [...] Helpful websites www. cancer. gov National Cancer [place] www.nccn.org National Comprehensive Cancer Network www.canceradvocacy.org National Coalition for Cancer Survivorship www.livestrong.org Livestrong Survivor Care www.acscsn.org Cancer Survivors Network Anna Carr APRN- Radiation Oncology Adapted from [place] [employer] of Clinical Oncology 2008 Cancer Treatment Plan Summary Survivorship care provider contacts OPERATIONS SUPPORT COORDINATOR: Anna Carr
--- OUTSIDE RECORDS SUMMARY | 2023-09-19 02:33 | XMS_ITS | Encounter Summary ---
Author Organization [facility] [place] [address] Care Team Providers Care Vfx Artist Name Role Phone Frederick Meade MD Primary Care Provider [phone] [phone] Encounter Details Date Type Department Care Team [...] AM EDT Infusion Hematology Oncology at [address] [phone] 09/21/2023 9:30 AM EDT Office Visit [place]ematology [place] [address] Micha Givens Jr., MD [facility] [place] [address] 09/21/2023 10:30 AM EDT Clinical Support [place]ematology [place] [address] Danii Her RN 09/26/2023 8:30 AM EDT Infusion Hematology Oncology at [address] [phone] 10/03/2023 9:00 AM EDT Office Visit Hematology/Oncology at [address] [phone] Adrianne Ramon MD [facility] [place] [address] Yael Merlos APRN [facility] [place] [address] 10/03/2023 9:30 AM EDT Infusion Hematology Oncology at [address] [phone] 10/10/2023 8:30 AM EDT Infusion Hematology Oncology at [address] [phone] documented as of this encounter Visit Diagnoses Not on filedocumented in this encounter Care Teams Vfx Artist Relationship Specialty Start Date End Date Frederick Meade MD [address] [place] [address] PCP - General Family Medicine 11/29/17 documented as of this encounter
--- OUTSIDE RECORDS SUMMARY | 2023-09-19 02:33 | XMS_ITS | Encounter Summary ---
Author Organization [facility] [place] [address] Care Team Providers Care Technical Photographer Name Role Phone Frederick Meade MD Primary Care Provider [phone] [phone] Reason for Referral * Diagnostic Test (Routine) - Closed Specialty Diagnoses / Procedures Referred By Contac t Referred To Contact Radiology Diagnoses 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 Skin nodule Procedures IR Biopsy Lymph Node (Chest/Abdomen/Pelvis) IR Biopsy Lymph Node (Head/Neck) Adrianne Ramon MD [facility] [address] [place] [address] [place] [address] Referral ID Status Reason Start Date Expiration Date V isits Requested Visits Authorized [id number] Closed Specialty Service Requested 08/22/2023 02/21/2025 1 1 Reason for Visit * Diagnostic Test (Routine) - Closed Specialty Diagnoses / Procedures Referred By Contac t Referred To Contact Radiology Diagnoses 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 Skin nodule Procedures IR Biopsy Lymph Node (Chest/Abdomen/Pelvis) IR Biopsy Lymph Node (Head/Neck) Adrianne Rmaon MD [facility] [address] [place] [address] [facility] [place] [address] Referral ID Status Reason Start Date Expiration Date V isits Requested Visits Authorized [id number] Closed Specialty Service Requested 08/22/2023 02/21/2025 1 1 Encounter Details Date Type Department Care Team (Late st Contact Info) Description 09/06/2023 10:15 AM EDT - 09/06/2023 12:58 PM EDT Hospital [place] [address] Adrianne Ramon MD [facility] [address] [place] [address] Diffuse large B-cell lymphoma of [...] place to sleep or slept in a usp (including now)? No 10/11/2022 Sex and Gender [...] Caldwell RN - 09/06/2023 9:38 AM EDT [facility] Vascular and Interventional Radiology Lymph node [...] be reported to you by your primary career technical counselor or the clinician who ordered the biopsy. Please do not call us for results as we will not have them. If you have not been contacted by your clinician within 5 business days you should call that officefor further information. When to call the Interventional Radiology Department: Please call with any questions or concerns. If it is during regular office hours, please call [phone]. If it is after regular office hours, or on weekends or holidays, please call [phone] and ask to speak to the Staff Design Engineer stonemason for Interventional Radiology. ---- documented in this [...] of : 1950 AGE: 73 y.o. Address: [address] [place] [address] [address] [facility] [address] Phone: [phone] (home) Mobile: Telephone Information: Referring Provider: Adrianne Ramon REASON FOR VISIT: Order Questions Answers Where will study be performed? [facility] Radiology [120] To be scheduled Ordering department [...] Questions Answers Where will study be performed? [facility] Radiology [120] To be scheduled Ordering department [...] IR Mediport Placement 10/17/[address] [facility] INTERVENTIONL RAD IR MEDIPORT REMOVAL 03/29/2023 IR Mediport Removal 03/29/[address] [facility] INTERVENTIONL RAD TONSILLECTOMY 1958 Social history and [...] 8:00 AM EDT Infusion Hematology Oncology at [address] [address] 09/21/2023 9:30 AM EDT Office Visit [place] [address] Micha Givens Jr., MD [facility] [address] [place] [address] 09/21/2023 10:30 AM EDT Clinical Support [place]ology [place] [address] Danii Her RN 09/26/2023 8:30 AM EDT Infusion Hematology Oncology at [address] [address] 10/03/2023 9:00 AM EDT Office Visit Hematology/Oncology at [address] [address] Adrianne Ramon MD [facility] DR [place] [address] Yael Merlos APRN [facility] [address] [place] [address] 10/03/2023 9:30 AM EDT Infusion Hematology Oncology at [address] [address] 10/10/2023 8:30 AM EDT Infusion Hematology Oncology at [address] [phone] Pending Results Name Type Priority Associated Diagnoses [...] (09/06/2023 12:28 PM EDT) Flow Cytometry Report [id number] ? Location: [facility] The signing pathologist has (i) examined the relevant preparation(s) for the specimen(s) and (ii) rendered or confirmed the diagnosis(es). . ?Flow Cytometry DIAGNOSIS ? 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 See comment. Electronically signed by: ?Dana OCASIO, [facility] Verified: ??09/10/2023 15:05 ??Hematopathologist Performed at: ??-[facility] Dept. of Pathology, [place] [address] Sales Special Agent: Katherine Lopez MD, FCAP, ??CLIA Certificate: [id number] DISCUSSION The T-lymphocytes , B- lymphocytes and [...] by the Clinical Flow Cytometry Laboratory at [facility]. It has not been cleared or [...] high complexity clinical laboratory testing. SPECIMEN PROCESSING [id number] Cells for immunophenotypic analysis were derived from LEFT AUX LYMPH NODE. CD45 vs side scatter gating was utilized to identify a LYMPHOID analysis region that comprises approximately 95-97% of all cells. The following markers were assessed: CD2, CD3, CD4, CD5, CD7, CD8, CD10, CD19, CD20, CD23, CD38, CD45, CD56, FMC-7, kappa light chain, and lambda light chain. CLINICAL INFORMATION dlbcl [facility] 09/06/2023 12:2 8 PM EDT Micha Pearl MD PATHOLOGY/CYTOLOGY O RDERABLES [facility] [place] [address] * Immunophenotyping Flow Cytometry (09/06/2023 12:28 PM EDT) Immunophenotyping Flow See Comment [facility] Comment: When completed by the Pathologist, the Flow Cytometry Report ([id number]) will display under the Pathology Results section within eDH. Other 09/06/2023 12:2 8 PM EDT 09/06/2023 12:47 PM EDT Narrative Resulting Agency Comment Spec In Lab Micha Pearl MD HEMATOLOGY ORDERABLE S [facility] [place] [id number] * Flow Cytometry Report (09/06/2023 11:40 AM EDT) Flow Cytometry Report [id number] ? Location: [facility] The signing pathologist has (i) examined the relevant preparation(s) for the specimen(s) and (ii) rendered or confirmed the diagnosis(es). . ?Flow Cytometry DIAGNOSIS Flow cytometric diagnosis: ?? No ??B-cell population or phenotypically abnormal T-cell population is detected. Electronically signed by: ?Dana OCASIO, [facility] Verified: ??09/07/2023 15:52 ??Hematopathologist Performed at: ??-[facility] Dept. of Pathology, [place] [address] Sales Special Agent: Katherine Lopez MD, FCAP, ??CLIA Certificate: [id number] DISCUSSION Blasts based on CD45 expression and [...] 5, 7). There is no increase in EK90-ewgpfreh/CD3-n eg NK cells. Flow analysis is an ancillary study. A definite diagnosis requires correlation with the morphologic features of this process and if necessary, correlation with other ancillary studies like immunohistochemistr y, enzyme cytochemistry and/or cyto/ molecular genetics. This test was developed and its performance characteristics determined by the Clinical Flow Cytometry Laboratory at [facility]. It has not been cleared or [...] high complexity clinical laboratory testing. SPECIMEN PROCESSING [id number] Cells for immunophenotypic analysis were derived from left arm collection. CD45 vs side scatter gating was utilized to identify a lymphoid analysis region that comprises approximately 18-27% of all cells. The following markers were assessed: CD2, CD3, CD4, CD5, CD7, CD8, CD10, CD19, CD45, CD56, kappa light chain, and lambda light chain. CLINICAL INFORMATION Mass [facility] 09/06/2023 11:4 0 AM EDT James Champion DO PATHOLOGY/CYTOLOGY O RDERABLES Performing Organization Address City/[facility]/ZIP Co de Phone Number [facility] [place] [address] * Immunophenotyping Flow Cytometry (09/06/2023 11:40 AM EDT) Immunophenotyping Flow See Comment [facility] Comment: When completed by the Pathologist, the Flow Cytometry Report ([id number]) will display under the Pathology Results section within eDH. Other 09/06/2023 11:4 0 AM EDT 09/06/2023 12:11 PM EDT Narrative Resulting Agency Comment Spec In Lab James Champion DO HEMATOLOGY ORDERABLE S Performing Organization Address City/[facility]/ZIP Co de Phone Number [facility] [place] [address] * (ABNORMAL) Surgical Pathology Report (09/06/2023 11:35 AM EDT) Surgical Pathology Report [id number] ? Location: [facility] The signing pathologist has (i) examined the [...] [facility] Verified: ??09/10/2023 18:38 ??Hematopathologist Performed at: ??-[facility] Dept. of Pathology, [place] [address] Sales Special Agent: Katherine Lopez MD, FCAP, ??CLIA Certificate: [id number] SYNOPTIC THIS RESULT REQUIRES PHYSICIAN/A.P.P. FOLLOW UP [...] lymphoid neoplasms . Blood . 2016. 127 (20):7567-9225. Rafael CHANDRA et al . Blood 103:275-282 [...] submitted in 2 cassettes labeled B1-B2. ??CCP(A) [facility] 09/06/2023 11:3 5 AM EDT James Champion DO PATHOLOGY/CYTOLOGY O RDERABLES Performing Organization Address City/[facility] Co de Phone Number [facility] [place] [address] * Anaerobic Culture (09/06/2023 11:25 AM EDT) Anaerobic Culture No anaerobic organisms isolated [facility] Arm 09/06/2023 11:2 5 AM EDT 09/06/2023 12:21 PM EDT Comment:Left Arm Collection versus mass Narrative Resulting Agency Comment Spec In Lab James Champion DO MICROBIOLOGY - GENER AL ORDERABLES Performing Organization Address [facility] Co de Phone Number [facility] [place] [address] * Tissue culture (09/06/2023 11:25 AM EDT) Tissue Culture No growth [facility] Gram Stain Few Neutrophils seen No microorganisms seen. [facility] Arm 09/06/2023 11:2 5 AM EDT 09/06/2023 12:21 PM EDT Comment:Left Arm Collection versus mass Narrative Resulting Agency Comment Spec In Lab James Champion DO MICROBIOLOGY - GENER AL ORDERABLES Performing Organization Address City/[facility]/ZIP Co de Phone Number [facility] [place] [address] * Calcofluor White Stain (09/06/2023 11:25 AM EDT) Calcofluor Stain Calcofluor White Preparation: Negative [facility] Other 09/06/2023 11:2 5 AM EDT 09/06/2023 12:21 PM EDT Comment:Left Arm Collection versus Mass Narrative Resulting Agency Comment Spec In Lab James Champion DO MICROBIOLOGY - GENER AL ORDERABLES Performing Organization Address [facility] Co de Phone Number [facility] [place] [address] * Specimen to Pathology (09/06/2023 11:20 AM EDT) AP Specimen 09/06/2023 11:2 0 AM EDT 09/06/2023 11:20 AM EDT Narrative [facility] - 09/06/2023 11:20 AM EDT Specimen requisition ordered. ??Separate Pathology report to follow James Champion DO PATHOLOGY/CYTOLOGY O RDERABLES Performing Organization Address [facility] Co de Phone Number [facility] [place] [address] * Specimen to Pathology (09/06/2023 10:43 AM EDT) AP Specimen 09/06/2023 10:4 3 AM EDT 09/06/2023 10:43 AM EDT Narrative [facility] - 09/06/2023 10:43 AM EDT Specimen requisition ordered. ??Separate Pathology report to follow Micha Pearl MD PATHOLOGY/CYTOLOGY O COLIN Performing Organization Address City/[facility]/[place] [address] * Cytopathology Non-Gynecological (09/06/2023 10:41 AM EDT) AP Specimen 09/06/2023 10:4 1 AM EDT 09/06/2023 10:41 AM EDT Narrative [facility] - 09/06/2023 10:41 AM EDT Specimen requisition ordered. ??Separate Pathology report to follow Micha Pearl MD PATHOLOGY/CYTOLOGY O COLIN Performing Organization Address [facility] [place] [address] documented in this encounter Visit Diagnoses Diagnosis [...] mg documented in this encounter Care Teams Technical Photographer Relationship Specialty Start Date End Date Frederick Meade MD [address] [place] [address] [address] [facility] [place] [address] PCP - General Family Medicine 11/29/17 documented as of this encounter
--- OUTSIDE RECORDS SUMMARY | 2023-09-19 02:33 | XMS_ITS | Encounter Summary ---
Author Organization [facility] [place] [address] Care Team Providers Care Crusher Assembler Name Role Phone Frederick Meade MD Primary Care Provider +1 [phone] Encounter Details Date Type Department Care Team (Latest Contact Info) Description 03/06/2023 7:23 AM EST - 03/06/2023 7:51 AM EST Hospital Encounter Hematology [place] [address] Non-Hodgkin lymphoma of lymph nodes of multiple [...] TEST DAILY 4 03/11/2018 [facility] 2 06/07/2018 colchicine [...] AM EDT Infusion Hematology Oncology at [address] [phone] 09/21/2023 9:30 AM EDT Office Visit Hematology [place] [address] Micha Givens Jr., MD [facility] DR [place] [address] 09/21/2023 10:30 AM EDT Clinical Support Hematology [place] [address] Danii Her RN 09/26/2023 8:30 AM EDT Infusion Hematology Oncology at [address] [phone] 10/03/2023 9:00 AM EDT Office Visit Hematology/Oncology at [address] [phone] Adrianne Ramon MD [facility] [place] [address] Yael Merlos, COPYING MACHINE MECHANIC [facility] HEMATOLOGY [place] [address] 10/03/2023 9:30 AM EDT Infusion Hematology Oncology at [address] [address] 10/10/2023 8:30 AM EDT Infusion Hematology Oncology at [address] [address] Scheduled Orders Name Type Priority [...] 7:45 AM EST) Neutrophils % 56.0 % [facility] Neutr Abs (ANC) 3.23 1.70 - 6.10 x10(3)/mc L [facility] Lymphocytes % 12.1 % [facility] Lymphocytes Abs 0.7(L) 0.9 - 3.2 x10(3)/mc L [facility] Monocytes % 20.5 % [facility] Monocyte Abs 1.2(H) 0.3 - 0.9 x10(3)/[facility] LABORATORY Eosinophils % 10.2 % [facility] Eosinophils Abs 0.6(H) 0.0 - 0.4 x10(3)/[facility] LABORATORY Basophils % 1.0 % [facility] Basophils Abs 0.1 0.0 - 0.1 x10(3)/[facility] LABORATORY Immature Gran % 0.20 % [facility] Comment: Immature granulocytes(IG's)percentage and absolute count will include metamyelocytes, myelocytes, and promyelocytes. Blood smears from CBCs yielding IG's will be scanned manually for concordance. If this scan disagrees with the automated IG or if promyelocytes are noted, a manual differential will be performed. Nellie Gran Abs 0.01 0.00 - 0.04 x10(3)/[facility] LABORATORY Blood 03/06/2023 7:45 AM EST 03/06/2023 8:00 AM EST Narrative Resulting Agency Comment Spec In Lab Adrianne Ramon MD HEMATOLOGY ORDER DUONG [facility] [place] [address] * (ABNORMAL) Hemogram (03/06/2023 7:45 AM EST) WBC 5.8 4.0 - 9.5 x10(3)/[facility] LABORATORY RBC 3.67(L) 4.58 - 5.54 x10(6)/[facility] LABORATORY Hemoglobin 11.3(L) 13.7 - 16.5 g/dL [facility] Hematocrit 34.5(L) 40.5 - 48.5 % [facility] MCV 94.0(H) 82.9 - 93.1 fL [facility] MCH 30.8 27.5 - 32.1 pg [facility] MCHC 32.8 32.0 - 35.7 g/dL [facility] Platelets 211 145 - 357 x10(3)/[facility] LABORATORY RDWSD 54.8(H) 36.0 - 45.0 fL [facility] RDWCV 15.9(H) 11.4 - 13.8 % [facility] MPV 10.2 7.6 - 12.9 fL [facility] nRBC % Auto 0.0 % [facility] nRBC Abs Auto 0.000 0.000 - 0.000 x10(3)/[facility] LABORATORY Blood 03/06/2023 7:45 AM EST 03/06/2023 8:00 AM EST Narrative Resulting Agency Comment Spec In Lab Adrianne Ramon MD HEMATOLOGY ORDER DUONG [facility] [place] [address] * (ABNORMAL) Comprehensive metabolic panel (non-fasting) (03/06/2023 7:45 AM EST) Glucose Lvl 133 65 - 199 mg/dL [facility] Comment:Diabetes: >=200 mg/d L plus symptoms BUN 12 10 - 20 mg/dL [facility] Creatinine 0.94 0.80 - 1.50 mg/dL [facility] Sodium 143 135 - 145 mmol/L [facility] Potassium 3.7 3.5 - 5.0 mmol/L [facility] Comment: Please note: ??Patients with WBC >100,000 may have falsely elevated Potassium levels. ??For accurate Potassium quantification in these patients send serum separator tube (gold top) for subsequent determinations. ??Contact the Clinical Chemistry Laboratory if there are any questions. Chloride 108(H) 98 - 107 mmol/L [facility] CO2 23 22 - 31 mmol/L [facility] Anion Gap 12 5 - 15 mmol/L [facility] Calcium 9.6 8.5 - 10.5 mg/dL [facility] Total Protein 6.4 6.1 - 8.0 g/dL [facility] Albumin 4.1 3.2 - 5.2 g/dL [facility] AST 22 0 - 39 unit/L [facility] ALT 18 0 - 55 unit/L [facility] Alk Phos 103 40 - 130 unit/L [facility] Total Bilirubin 0.2 0.2 - 1.3 mg/dL [facility] Estimated GFR 85 >=60 mL/min/1. 73 m?? [facility] Comment: This patient's estimated [...] Lab Adrianne Ramon MD CHEMISTRY ORDERA BLES [facility] [place] [address] * (ABNORMAL) Immunoglobulins, Quantitative (03/06/2023 7:45 AM EST) IgG 572(L) 700 - 1,600 mg/dL [facility] Comment: Pediatric Reference Intervals obtained from the Caliper Reference Interval project. http://www.sickkids.ca/caliperproject/index.html IgA 118 70 - 400 mg/dL [facility] IgM 123 40 - 230 mg/dL [facility] Blood 03/06/2023 7:45 AM EST 03/06/2023 8:00 AM EST Narrative Resulting Agency Comment Spec In Lab Adrianne Ramon MD CHEMISTRY ORDERA BLES Performing Organization Address City/[facility]/ZIP Co de Phone Number [facility] [place] [address] * Lactate Dehydrogenase (03/06/2023 7:45 AM EST) LDH 198 110 - 220 unit/L [facility] Blood 03/06/2023 7:45 AM EST 03/06/2023 8:00 AM EST Narrative Resulting Agency Comment Spec In Lab Adrainne Ramon MD CHEMISTRY ORDERA BLES Performing Organization Address [facility] Co de Phone Number [facility] [place] [address] * Uric acid (03/06/2023 7:45 AM EST) Uric Acid 5.5 3.5 - 8.5 mg/dL [facility] Blood 03/06/2023 7:45 AM EST 03/06/2023 8:00 AM EST Narrative Resulting Agency Comment Spec In Lab Adrianne Ramon MD CHEMISTRY ORDERA BLES Performing Organization Address [facility] Co de Phone Number [facility] [place] [address] documented in this encounter Visit Diagnoses Diagnosis [...] Sun03/06/23 at 0740, Until 03/07/23 at 0433, Insulation Supervisor, Routine Given 03/06/2023 7:50 AM EST 20 mLs documented in this encounter Care Teams Crusher Assembler Relationship Specialty Start Date End Date Frederick Meade MD [address] [place] [address] PCP - General Family Medicine 11/29/17 documented as of this encounter
--- OUTSIDE RECORDS SUMMARY | 2023-09-19 02:33 | XMS_ITS | Encounter Summary ---
Author Organization [facility] [address] Care Team Providers Care Green Meat Packer Name Role Phone Frederick Meade MD Primary Care Provider [phone] Encounter Details Date Type Department Care Team [...] AM EDT Infusion Hematology Oncology at [address] [phone] 09/21/2023 9:30 AM EDT Office Visit Hematology [place] [address] Micha Givens Jr., MD [facility] HEMATOLOGY [place] [address] 09/21/2023 10:30 AM EDT Clinical Support Hematology [place] [address] Danii Her RN 09/26/2023 8:30 AM EDT Infusion Hematology Oncology at [address] [phone] 10/03/2023 9:00 AM EDT Office Visit Hematology/Oncology at [address] [phone] Adrianne Ramon MD [facility] HEMATOLOGY [place] [address] Yael Merlos APRN [facility] H[place]ATOLOG[place] [address] 10/03/2023 9:30 AM EDT Infusion Hematology Oncology at [address] [phone] 10/10/2023 8:30 AM EDT Infusion Hematology Oncology at [address] [phone] documented as of this encounter Visit Diagnoses Not on filedocumented in this encounter Care Teams Green Meat Packer Relationship Specialty Start Date End Date Frederick Meade MD [address] [place] [address] PCP - General Family Medicine 11/29/17 documented as of this encounter
--- OUTSIDE RECORDS SUMMARY | 2023-09-19 02:33 | XMS_ITS | Encounter Summary ---
[place] [address] Care Team Providers Care Manifold Operator Name Role Phone Frederick Meade MD Primary Care Provider [phone] [phone] Reason for Referral * Diagnostic Test (Routine) - Authorized Specialty Diagnoses / Procedures Referred By Contac t Referred To Contact Cardiology Diagnoses 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 High risk medication use Procedures Echocardiogram Transthoracic Adrianne Ramon MD [facility] [address] [place] [address] Referral ID Status Reason Start Date Expiration Date Visits Requested Visits Authorized [id number] Authorized Specialty Service Requested 09/12/2023 03/10/2024 1 1 * Consultation (Routine) - Authorized Specialty Diagnoses / Procedures Referred By Contac t Referred To Contact Hematology and Oncology Diagnoses Diffuse large B-cell lymphoma of lymph nodes of multiple regions Adrianne Ramon MD [facility] [address] [place] [address] [facility] [address] [place] [address] Referral ID Status Reason Start Date Expiration Date Visits Requested Visits Authorized [id number] Authorized Specialty Service Requested 09/12/2023 09/11/2024 1 1 Encounter Details Date Type Department Care Team (Late st Contact Info) Description 09/12/2023 10:15 AM EDT Office Visit Hematology/Oncology at [address] [phone] Adrianne Ramon MD [facility] [place] [address] Yael Merlos, CUSTOMER SERVICE SUPERVISOR [facility] [place] [address] Diffuse large B-cell lymphoma of lymph nodes [...] original note were not included. Hematology Clinic [facility] [place] [address] HEMATOLOGY PATIENT EVALUATION PROBLEM LIST: Patient Active [...] to consultation, he saw [facility] in [facility] and when to [facility]. No beds so sent to [facility] for [address] CAP, MRI, [...] x7 days with nice response. Pathology from [facility] reports large B-cell lymphoma. Double expresser. FISH for translocations are pending. Tongue swelling. No wt loss. Eating and drinking OK. No fevers, infections, No NS. Pain in neck. Prednisone 60mg daily X 7 days. I feel great on prednisone last day of prednisone is today. Took iron supplements per PCP - unclear cause. - last COLO at [facility] was 01/17/2012. INTERIM HISTORY OF [...] and needle of cervical LN. FISH from [place] No MYCrearrangement and no fusion of MYC [...] only 1 biologic. Son Cheo Freire. Enjoys [employer], [employer], [employer] car, [employer]. [employer]. 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 Not a . ETOH: 1-3 beers per week Smoking: Quit 1985. Approximately 52-oxav-onqa history Vaping or electronic cigarettes: denies Chewing tobacco: denies Marijuana or other recreational drug use: none HIPPA Contact Permission: John. Also OK to talk to Delia adult children. OK to leave message with medical information on home or cell phone: home phone PHYSICAL EXAM There were no vitals taken for this visit. GENERAL: Cheo Freire is a delightful 73-year old male in [facility]. He is accompanied to the [...] and BCL-2 protein (Double Expressor.) Flow cytometry ([id number]) supports this interpretation. FISH from [place] No MYC rearrangement and no fusion of MYC and IGH was observed, CD3 (SP7, Thermo Scientific) Background T-cells CD20 (L26, [place]) diffusely positive in Neoplastic B-cells PAX-5 (1EW, [employer]) diffusely positive in Neoplastic B-cells CD10 (SP67, [place]) Negative BCL-6 (G/191E/A8, [place]) Positive MUM-1 (MUM1p, [employer]) Positive Myc (Y69, [employer]) Positive BCL-2 Oncoprotein (124, [place]) Positive Ki67 (MIB-1) (K2, [employer]) Greater than 95% of cells in cycle Cyclin D1(SP4-R, [place]) Negative SAPPHIRE JOSE ([id number], [employer]) Negative. DIAGNOSTICS: 01/25/23 ECHO after C#5 [...] 08/22/2023 left upper extremity ultrasound performed at [facility] Notable findings: In the left antecubital fossa [...] undergo investigation with ultrasound. CT CAP at [facility], report and images have been requested. [...] at least 1 month spent locally at [facility] and local hospital. Unfortunately, because ofhis age, [...] concepts, and the time it entails at [facility]. This would be a significant commitment for the patient and his family as they live 2 [place] half hours away from [facility]. They feel comfortable that they [...] a report of increase in arterial thrombosis (CVA/DC) as well. This risk is very small. [...] LVEF at 50-55%. --asymptomatic --repeat echo at [facility] 1 year post completion of therapy [due [...] from 09/06/23 biopsy Repeat ECHO when at [facility] for CAR-T cell discussion Referral to CAR-T [...] AM EDT Infusion Hematology Oncology at [address] [phone] 09/21/2023 9:30 AM EDT Office Visit [place]ematology [place] [address] Micha Givens Jr., MD [facility] DR [place] [address] 09/21/2023 10:30 AM EDT Clinical Support [place]ematology [place] [address] Danii Her RN 09/26/2023 8:30 AM EDT Infusion Hematology Oncology at [address] [phone] 10/03/2023 9:00 AM EDT Office Visit Hematology/Oncology at [address] [phone] Adrianne Ramon MD [facility] DR [place] [address] Yael Merlos APRN [facility] [place] [address] 10/03/2023 9:30 AM EDT Infusion Hematology Oncology at [address] [address] 10/10/2023 8:30 AM EDT Infusion Hematology Oncology at [address] [phone] Scheduled Orders Name Type Priority Associated Diagnoses [...] medications documented in this encounter Care Teams Manifold Operator Relationship Specialty Start Date End Date Frederick Meade MD [address] [place] [address] [address] [place] [address] PCP - General Family Medicine 11/29/17 documented as of this encounter
--- OUTSIDE RECORDS SUMMARY | 2023-09-19 02:33 | XMS_ITS | Encounter Summary ---
[place] [address] Care Team Providers Care Restaurant Crew Member Name Role Phone Frederick Meade MD Primary Care Provider [phone] Reason for Referral * Diagnostic Test (Routine) - Closed Specialty Diagnoses / Procedures Referred By Contac t Referred To Contact Radiology Diagnoses Diffuse large B-cell lymphoma of lymph nodes of multiple regions Procedures IR Mediport Removal Yael Merlos MAINTENANCE MAN [facility] [place] [address] [facility] [place] [address] Referral ID Status Reason Start Date Expiration Date V isits Requested Visits Authorized [id number] Closed Specialty Service Requested 03/15/2023 09/12/2024 1 1 Encounter Details Date Type Department Care Team (Late st Contact Info) Description 03/15/2023 Orders Only [place]ology [place] [address] Yael Merlos MAINTENANCE MAN [facility] [place] [address] Diffuse large B-cell lymphoma of [...] AM EDT Infusion Hematology Oncology at [address] [phone] 09/21/2023 9:30 AM EDT Office Visit [place]ology [place] [address] Micha Givens Jr., MD [facility] DR HEMATOLOG[place] [address] 09/21/2023 10:30 AM EDT Clinical Support [place]ology [place] [address] Danii Her RN 09/26/2023 8:30 AM EDT Infusion Hematology Oncology at [address] [address] 10/03/2023 9:00 AM EDT Office Visit Hematology/Oncology at [address] [phone] Adrianne Ramon MD [facility] DR [place]AT[place] [address] Yael Merlos APRN [facility] DR [place]AT[place] [address] 10/03/2023 9:30 AM EDT Infusion Hematology Oncology at [address] [phone] 10/10/2023 8:30 AM EDT Infusion Hematology Oncology at [address] [phone] documented as of this encounter Results * IR Mediport Removal (03/29/2023 2:32 PM EST) Anatomical Region Laterality Modality X-Ray Angiograph y Narrative 2023 1:04 PM EST Interventional Radiology Procedure Note Procedure: Chest port explant Indication: Lymphoma, therapy complete, discontinue jail central venous access for chemotherapy Pre-procedure: Informed [...] venous port with all components accounted for. 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
--- OUTSIDE RECORDS SUMMARY | 2023-09-19 02:33 | XMS_ITS | Encounter Summary ---
Author Organization [facility]ly [facility] Address [facility] [place] [address] Care Team Providers Care Transition Lead Name Role Phone Frederick Meade MD Primary Care Provider [phone] Encounter Details Date Type Department Care Team (Late st Contact Info) Description 03/14/2023 11:30 AM EST Office Visit Hematology/Oncology at [address] [phone] Adrianne Ramon MD [facility] [place] [address] Yael Merlos APRN [facility] [place] [address] Diffuse large B-cell lymphoma of lymph nodes [...] - 03/14/2023 11:30 AM EST Hematology Clinic [facility] [place] [address] HEMATOLOGY PATIENT EVALUATION PROBLEM LIST: Patient Active [...] ~2 weeks ago saw Express Care in [facility] and when to [facility]. No beds so sent to [facility] [...] x7 days with nice response. Pathology from [facility] reports large B-cell lymphoma. Double expresser. FISH for translocations are pending. Tongue swelling. No wt loss. Eating and drinking OK. No fevers, infections, No NS. Pain in neck.Prednisone 60mg daily X 7 days. I feel great on prednisone last day of prednisone is today Took iron supplements per PCP - unclear cause. - last COLO at [facility] was 01/17/2012. INTERIM HISTORY OF PRESENT [...] and needle of cervical LN. FISH from [place] No MYCrearrangement and no fusion of MYC [...] only 1 biologic. Son Cheo Freire. Enjoys [employer], movies, race car, cards. [employer]. 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 Not a . ETOH: 1-3 beers per week Smoking: Quit 1985. Approximately 59-ecif-moay history Vaping or electronic cigarettes: denies Chewing [...] is a delightful 72-year old male in [facility]. He is accompanied to the clinic [...] and BCL-2 protein (Double Expressor.) Flow cytometry ([id number]) supports this interpretation. FISH from [place] No MYC rearrangement and no fusion of MYC and IGH was observed, CD3 (SP7, Thermo Scientific) Background T-cells CD20 (L26, [place]) diffusely positive in Neoplastic B-cells PAX-5 (1EW, Leica) diffusely positive in Neoplastic B-cells CD10 (SP67, [place]) Negative BCL-6 (G/191E/A8, [place]) Positive MUM-1 (MUM1p, Dako) Positive Myc (Y69, [employer]cam) Positive BCL-2 Oncoprotein (124, [place]) Positive Ki67 (MIB-1) (K2, Leica) Greater than 95% of cells in cycle Cyclin D1(SP4-R, [place]) Negative SAPPHIRE JOSE ([id number], Leica) Negative. DIAGNOSTICS: 01/25/23 ECHO after C#5 [...] investigation with ultrasound. CT CAP at [facility], report and images have been requested. ASSESSMENT/PLAN: [...] LVEF at 50-55%. --asymptomatic --repeat echo at [facility] 1 year post completion of therapy Suspected [...] to Feb 2028. Send PET images to [facility] for future comparison w/ surveillance CT scans. [...] AM EDT Infusion Hematology Oncology at [address] [address] 09/21/2023 9:30 AM EDT Office Visit Hematology [place] [phone] Micha Givens Jr., MD [facility] [place] [address] 09/21/2023 10:30 AM EDT Clinical Support Hematology [place] [address] Danii Her RN 09/26/2023 8:30 AM EDT Infusion Hematology Oncology at [address] [phone] 10/03/2023 9:00 AM EDT Office Visit Hematology/Oncology at [address] [phone] Adrianne Ramon MD [facility] [place] [address] Yael Merlos APRN [facility] [place] [address] 10/03/2023 9:30 AM EDT Infusion Hematology Oncology at [address] [phone] 10/10/2023 8:30 AM EDT Infusion Hematology Oncology at [address] [phone] documented as of this encounter Visit Diagnoses Diagnosis Diffuse large B-cell lymphoma of lymph nodes of multiple regions Iron deficiency anemia, unspecified iron deficiency anemia type documented in this encounter Care Teams Transition Lead Relationship Specialty Start Date End Date Frederick Meade MD [address] [place] [address] PCP - General Family Medicine 11/29/17 documented as of this encounter
--- OUTSIDE RECORDS SUMMARY | 2023-09-19 02:33 | XMS_ITS | Encounter Summary ---
[place] [address] Care Team Providers Care Nurse Infection Control Name Role Phone Frederick Meade MD Primary Care Provider [phone] Encounter Details Date Type Department Care Team (Late st Contact Info) Description 06/22/2023 Orders Only Hematology [place] [phone] Deidre Silverio Social History Tobacco Use Types [...] 8:00 AM EDT Infusion Hematology Oncology at [address] [address] 09/21/2023 9:30 AM EDT Office Visit Hematology [place] [address] Micha Givens Jr., MD [facility] HEMATOLOGY [place] [address] 09/21/2023 10:30 AM EDT Clinical Support Hematology [place] [address] Danii Her RN 09/26/2023 8:30 AM EDT Infusion Hematology Oncology at [address] [phone] 10/03/2023 9:00 AM EDT Office Visit Hematology/Oncology at [address] [phone] Adrianne Ramon MD [facility] HEMATOLOGY [place] [address] Yael Merlos, POLITICAL ANALYST [facility] HEMATOLOGY [place] [address] 10/03/2023 9:30 AM EDT Infusion Hematology Oncology at [address] [phone] 10/10/2023 8:30 AM EDT Infusion Hematology Oncology at [address] [phone] documented as of this encounter Visit Diagnoses Not on filedocumented in this encounter Care Teams Nurse Infection Control Relationship Specialty Start Date End Date Frederick Meade MD [address] [place] [address] PCP - General Family Medicine 11/29/17 documented as of this encounter
--- OUTSIDE RECORDS SUMMARY | 2023-09-19 02:33 | XMS_ITS | Encounter Summary ---
Author Organization [facility] [place] [address] Care Team Providers Care Testing Engineer Name Role Phone Frederick Meade MD Primary Care Provider [phone] Encounter Details Date Type Department Care Team [...] place to sleep or slept in a mcc (including now)? No 10/11/2022 Sex and Gender Information Value Date Recorded Sex Assigned at Not on file Gender Identity Not on file Sexual Orientation Not on file documented as of this encounter Plan of Treatment Upcoming Encounters Date Type Department Care Team (Late st Contact Info) Description 09/19/2023 8:00 AM EDT Infusion Hematology Oncology at [address] [phone] 09/21/2023 9:30 AM EDT Office Visit Hematology [place] [address] Micha Givens Jr., MD [facility] HEMATOLOGY [place] [address] 09/21/2023 10:30 AM EDT Clinical Support Hematology [place] [address] Danii Her RN 09/26/2023 8:30 AM EDT Infusion Hematology Oncology at [address] [phone] 10/03/2023 9:00 AM EDT Office Visit Hematology/Oncology at [address] [phone] Adrianne Ramon MD [facility] HEMATOLOGY [place] [address] Yael Merlos APRN [facility] HEMATOLOGY [place] [address] 10/03/2023 9:30 AM EDT Infusion Hematology Oncology at [address] [phone] 10/10/2023 8:30 AM EDT Infusion Hematology Oncology at [address] [phone] documented as of this encounter Visit Diagnoses Not on filedocumented in this encounter Care Teams Testing Engineer Relationship Specialty Start Date End Date Frederick Meade MD [address] [place] [address] PCP - General Family Medicine 11/29/17 documented as of this encounter
--- OUTSIDE RECORDS SUMMARY | 2023-09-19 02:34 | XMS_ITS | Encounter Summary ---
Author Organization [facility] Address [facility] [place] [address] Care Team Providers Care Drying Machine Tender Name Role Phone Frederick Meade MD Primary Care Provider [phone] [phone] Encounter Details Date Type Department Care Team (Late st Contact Info) Description 12/20/2022 Notes Only Hematology/Oncology at [address] [phone] Shelley Cason, [facility] Social History Tobacco [...] were approved for a toi from the [employer]. They are appreciative of this financial assistance. Cheo indicated he tolerated his last treatment much better than the first 2 so he hope his one will go well. Oferred them support as Mrs. Freire shared how challenging this is for them. Reminded them of MEDICAL OFFICE ASSISTANT availability and will continue to follow for support and resources. Brief assessment Supportive Counseling Financial resources Community Resource documented in this encounter Plan of Treatment Upcoming Encounters Date Type Department Care Team (Late st Contact Info) Description 09/19/2023 8:00 AM EDT Infusion Hematology Oncology at [address] [address] 09/21/2023 9:30 AM EDT Office Visit [place]ematology [place] [address] Micha Givens Jr., MD [facility] DR [place] [address] 09/21/2023 10:30 AM EDT Clinical Support [place]ematology [place] [address] Danii Her RN 09/26/2023 8:30 AM EDT Infusion Hematology Oncology at [address] [phone] 10/03/2023 9:00 AM EDT Office Visit Hematology/Oncology at [address] [phone] Adrianne Ramon MD [facility] DR [place] [address] Yael Merlos APRN [facility] [address] [place] [address] 10/03/2023 9:30 AM EDT Infusion Hematology Oncology at [address] [phone] 10/10/2023 8:30 AM EDT Infusion Hematology Oncology at [address] [phone] documented as of this encounter Visit Diagnoses Not on filedocumented in this encounter Care Teams Drying Machine Tender Relationship Specialty Start Date End Date Frederick Meade MD [address] [place] [address] PCP - General Family Medicine 11/29/17 documented as of this encounter
--- OUTSIDE RECORDS SUMMARY | 2023-09-19 02:34 | XMS_ITS | Encounter Summary ---
[place] [address] Care Team Providers Care Research Center Partner Name Role Phone Frederick Meade MD Primary Care Provider [phone] Reason for Referral * Diagnostic Test (Routine) - Closed Specialty Diagnoses / Procedures Referred By Contac t Referred To Contact Radiology Diagnoses Diffuse large B-cell lymphoma of lymph nodes of multiple regions Procedures NM PET CT Skull Base to Mid-thigh Yael Merlos APRN [facility] [place] [address] [place] [address] Referral ID Status Reason Start Date Expiration Date V isits Requested Visits Authorized [id number] Closed Specialty Service Requested 01/15/2023 07/15/2024 1 1 Encounter Details Date Type Department Care Team (Late st Contact Info) Description 01/15/2023 Orders Only Hematology [place] [address] Yael Merlos APRN [facility] [place] [address] Diffuse large B-cell lymphoma of [...] AM EDT Infusion Hematology Oncology at [address] [phone] 09/21/2023 9:30 AM EDT Office Visit Hematology [place] [address] Micha Givens Jr., MD [facility] DR [place] [address] 09/21/2023 10:30 AM EDT Clinical Support Hematology [place] [address] Danii Her RN 09/26/2023 8:30 AM EDT Infusion Hematology Oncology at [address] [phone] 10/03/2023 9:00 AM EDT Office Visit Hematology/Oncology at [address] [phone] Adrianne Ramon MD [facility] DR [place] [address] Yael Merlos APRN [facility] DR [place] [address] 10/03/2023 9:30 AM EDT Infusion Hematology Oncology at [address] [phone] 10/10/2023 8:30 AM EDT Infusion Hematology Oncology at [address] [phone] documented as of this encounter Results * [...] who have questions please contact the health child care group leader that requested your imaging first. ? Narrative 03/08/2023 11:33 AM EST EXAMINATION: NM PET CT STANDARD SKULL BASE TO MID-THIGH CLINICAL HISTORY: Hematologic malignancy, assess treatment response History of diffuse large B-cell lymphoma, status post 6 cycles of RCHOP. TECHNIQUE: Following IV injection of 71-azdxrj-0-deoxyglucose (FDG) a standard uptake of approximately 60 [...] of RCHOP. TECHNIQUE: Following IV injection of 76-rarrqp-1-deoxyglucose (FDG) astandard uptake of approximately 60 minutes, [...] patients who have questions please contactthe health child care group leader that requested your imaging first. 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
--- OUTSIDE RECORDS SUMMARY | 2023-09-19 02:34 | XMS_ITS | Encounter Summary ---
Author Organization [facility] Address [facility] [place] [address] Care Team Providers Care Financial Aid Advisor Name Role Phone Frederick Meade MD Primary Care Provider [phone] [phone] Encounter Details Date Type Department Care Team (Late st Contact Info) Description 12/06/2022 2:30 PM EDT TH Visit (TeleHealth) Hematology/Oncology at [address] [address] Adrianne Ramon MD [facility] [place] [address] Diffuse large B-cell lymphoma of lymph nodes [...] - 12/06/2022 3:30 PM EDT Hematology Clinic [facility] [place] [id number] HEMATOLOGY PATIENT EVALUATION Patient Active Problem List [...] in [facility] and when to [facility]. No beds so sent to [facility] for [address] CAP, MRI,and [...] x7 days with nice response. Pathology from [email or web address] reports large B-cell lymphoma. Double expresser. FISH for translocations are pending. Tongue swelling. No wt loss. Eating and drinking OK. No fevers, infections, No NS. Pain in neck.Prednisone 60mg daily X 7 days. I feel great on prednisone last day of prednisone is today Took iron supplements per PCP - unclear cause. - last COLO at [facility] was 01/17/2012. INTERIM HISTORY OF PRESENT [...] and needle of cervical LN. FISH from [place] No MYCrearrangement and no fusion of MYC [...] only 1 biologic. Son Cheo Freire. Enjoys [employer], [employer], [employer], [employer]. [employer]. 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 Not a . ETOH: 1-3 beers per week Smoking: Quit 1985. Approximately 34-knil-nkmi history Vaping or electronic cigarettes: denies Chewing [...] is a delightful 72-year old male in [facility]. He is accompanied to the [...] and BCL-2 protein (Double Expressor.) Flow cytometry ([id number]) supports this interpretation. FISH from [place] No MYC rearrangement and no fusion of MYC and IGH was observed, CD3 (SP7, Thermo Scientific) Background T-cells CD20 (L26, Stollings) diffusely positive in Neoplastic B-cells PAX-5 (1EW, Leica) diffusely positive in Neoplastic B-cells CD10 (SP67, Stollings) Negative BCL-6 (G/191E/A8, Stollings) Positive MUM-1 (MUM1p, Dako) Positive Myc (Y69, Abcam) Positive BCL-2 Oncoprotein (124, Stollings) Positive Ki67 (MIB-1) (K2, Leica) Greater than 95% of cells in cycle Cyclin D1(SP4-R, Stollings) Negative SAPPHIRE JOSE ([id number], Leica) Negative. DIAGNOSTICS: 11/28/22 ECHO after C#2 [...] undergo investigation with ultrasound. CT CAP at [facility], report and images have been requested. [...] last ECHO on 11/28/22) Next ECHO at [facility] on 01/25/23 Suspected MEHNAZ - Hgb drop 3gm in last 2 weeks. No overt bleeding. Taking oral iron bid. Stools have been route rider recently. No COLO in last 10 years. [...] Jan 2023 - booked for 01/25/23 at [facility] Stop iron, not MEHNAZ, has anemia of [...] AM EDT Infusion Hematology Oncology at [address] [phone] 09/21/2023 9:30 AM EDT Office Visit [place]ematology [place] [address] Micha Givens Jr., MD [facility] [place] [address] 09/21/2023 10:30 AM EDT Clinical Support [place]ematology [place] [address] Danii Her RN 09/26/2023 8:30 AM EDT Infusion Hematology Oncology at [address] [phone] 10/03/2023 9:00 AM EDT Office Visit Hematology/Oncology at [address] [phone] Adrianne Ramon MD [facility] [place] [address] Yael Merlos APRN [facility] [place] [address] 10/03/2023 9:30 AM EDT Infusion Hematology Oncology at [address] [phone] 10/10/2023 8:30 AM EDT Infusion Hematology Oncology at [address] [phone] documented as of this encounter Procedures Procedure Name Priority Date/Time Associated Diagnosis Comments CBC (WITH DIFF) Routine 12/06/2022 COMPREHENSIVE METABOLIC PANEL (NON-FASTING) Routine 12/06/2022 documented in this encounter Results * Comprehensive metabolic panel (non-fasting) (12/06/2022) Pathologist [facility] Creatinine 0.9 Potassium 3.3 Total Bilirubin 0.3 Alk Phos 152 AST 14 ALT 17 LDH 155 Iron 34 TIBC 201 Iron Saturation 17 Ferritin 605 Blood 12/06/2022 Historical Provider CHEMISTRY ORDERAB LES * CBC (with Diff) (12/06/2022) Pathologist [facility] WBC 4.99 Hemoglobin 9.2 Hematocrit 27.9 Platelets 139 Neutr Abs (ANC) 3.74 Blood 12/06/2022 Historical Provider HEMATOLOGY ORDERA BLES documented in this encounter Visit Diagnoses Diagnosis Diffuse large B-cell lymphoma of lymph nodes of multiple regions documented in this encounter Care Teams Financial Aid Advisor Relationship Specialty Start Date End Date Frederick Meade MD [address] [place] [address] PCP - General Family Medicine 11/29/17 documented as of this encounter
--- OUTSIDE RECORDS SUMMARY | 2023-09-19 02:34 | XMS_ITS | Encounter Summary ---
[place] [address] Care Team Providers Care Commercial Announcer Name Role Phone Frederick Meade MD Primary Care Provider [phone] [phone] Reason for Referral * Diagnostic Test (Routine) - Closed Specialty Diagnoses / Procedures Referred By Contac t Referred To Contact Radiology Diagnoses Diffuse large B-cell lymphoma of lymph nodes of multiple regions Procedures NM PET CT Standard Plus Extremities and Head Yael Merlos APRN [facility] [place] [address] [place] [address] Referral ID Status Reason Start Date Expiration Date V isits Requested Visits Authorized [id number] Closed Specialty Service Requested 12/20/2022 06/19/2024 1 1 Reason for Visit * Reason Comments Follow-up Chemotherapy Encounter Details Date Type Department Care Team (Late st Contact Info) Description 12/20/2022 8:30 AM EDT Office Visit Hematology/Oncology at [address] [phone] Adrianne Ramon MD [facility] [place] [address] Yael eMrlos APRN [facility] [place] [address] Diffuse large B-cell lymphoma of lymph nodes [...] this encounter Progress Notes * Yael Merlos, ALTERATIONS MANAGER - 12/20/2022 8:30 AM EDT Hematology Clinic [facility] [place] [address] HEMATOLOGY PATIENT EVALUATION Patient Active Problem List [...] [facility] and when to [facility]. No beds so sent to [facility] for [address] [...] x7 days with nice response. Pathology from [facility] reports large B-cell lymphoma. Double expresser. FISH for translocations are pending. Tongue swelling. No wt loss. Eating and drinking OK. No fevers, infections, No NS. Pain in neck.Prednisone 60mg daily X 7 days. I feel great on prednisone last day of prednisone is today Took iron supplements per PCP - unclear cause. - last COLO at [facility] was 01/17/2012. INTERIM HISTORY OF [...] and needle of cervical LN. FISH from [place] No MYCrearrangement and no fusion of MYC [...] only 1 biologic. Son Cheo Freire. Enjoys [employer], movies, race car, cards. [employer]. 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 Not a . ETOH: 1-3 beers per week Smoking: Quit 1985. Approximately 94-iusx-ccfm history Vaping or electronic cigarettes: denies Chewing [...] is a delightful 72-year old male in [facility]. He is accompanied to the [...] and BCL-2 protein (Double Expressor.) Flow cytometry ([id number]) supports this interpretation. FISH from [place] No MYC rearrangement and no fusion of MYC and IGH was observed, CD3 (SP7, Thermo Scientific) Background T-cells CD20 (L26, Ali Chukson) diffusely positive in Neoplastic B-cells PAX-5 (1EW, Leica) diffusely positive in Neoplastic B-cells CD10 (SP67, Ali Chukson) Negative BCL-6 (G/191E/A8, Ali Chukson) Positive MUM-1 (MUM1p, Dako) Positive Myc (Y69, Abcam) Positive BCL-2 Oncoprotein (124, Ali Chukson) Positive Ki67 (MIB-1) (K2, Leica) Greater than 95% of cells in cycle Cyclin D1(SP4-R, Ali Chukson) Negative SAPPHIRE JOSE ([id number], Leica) Negative. DIAGNOSTICS: 11/28/22 ECHO after C#2 [...] undergo investigation with ultrasound. CT CAP at [facility], report and images have been [...] Jan 2023 - booked for 01/25/23 at [facility] Recommend COVID vaccine though he is aware that he may not have a robust response due to ongoing chemotherapy with B-cell depletion. He has already received influenza vaccine. I discussed all of the above with the patient and all of his questions were answered. Support and counseling as appropriate. Yael Merlos, MSN, ALTERATIONS MANAGER Nurse practitioner Section of Hematology Copy Frederick Meade MD documented in this encounter Plan of Treatment Upcoming Encounters Date Type Department Care Team (Late st Contact Info) Description 09/19/2023 8:00 AM EDT Infusion Hematology Oncology at [address] [phone] 09/21/2023 9:30 AM EDT Office Visit [place]ematology [place] [phone] Micha Givens Jr., MD [facility] [address] [place] [address] 09/21/2023 10:30 AM EDT Clinical Support [place]ematology [place] [address] Danii Her RN 09/26/2023 8:30 AM EDT Infusion Hematology Oncology at [address] [address] 10/03/2023 9:00 AM EDT Office Visit Hematology/Oncology at [address] [phone] Adrianne Ramon MD [facility] [place] [address] Yael Merlos APRN [facility] [place] [address] 10/03/2023 9:30 AM EDT Infusion Hematology Oncology at [address] [phone] 10/10/2023 8:30 AM EDT Infusion Hematology Oncology at [address] [phone] documented as of this encounter Procedures Procedure [...] who have questions please contact the health sub acute care nurse that requested your imaging first. ? Electronically signed by: Fletcher Duckworth MD, [facility] ([phone]), at 01/05/2023 9:50 AM Narrative 01/05/2023 9:50 AM EST EXAMINATION: NM PET CT STANDARD PLUS EXTREMITIES AND HEAD CLINICAL HISTORY: Hematologic malignancy, assess treatment response Non-Hodgkin lymphoma TECHNIQUE: Procedure: Following IV injection of 93-gtpxph-1-deoxyglucose (FDG) a standard uptake of approximately 60 [...] lymphoma TECHNIQUE: Procedure: Following IV injection of 42-tyqlxu-7-deoxyglucose(FDG) a standard uptake of approximately 60 minutes, [...] of the left upper lobe (image 131 [id number]). These foci are new since the prior [...] patients who have questions please contactthe health sub acute care nurse that requested your imaging first. Electronically signed by: Fletcher Duckworth MD, [facility]([phone]), at 01/05/2023 9:50 AM Yael Merlos ALTERATIONS MANAGER IMG PET ORDERABLES * Comprehensive metabolic panel [...] regions documented in this encounter Care Teams Commercial Announcer Relationship Specialty Start Date End Date Frederick Meade MD [address] [place] [address] PCP - General Family Medicine 11/29/17 documented as of this encounter
--- OUTSIDE RECORDS SUMMARY | 2023-09-19 02:34 | XMS_ITS | Encounter Summary ---
Author Organization [facility] [place] [address] Care Team Providers Care Organizational Development Manager Name Role Phone Frederick Meade MD Primary Care Provider [phone] [phone] Encounter Details Date Type Department Care Team [...] Infusion Hematology Oncology at [address] [phone] 09/21/2023 9:30 AM EDT Office Visit Hematology [place] [address] Micha Givens Jr., MD [facility] [place] [address] 09/21/2023 10:30 AM EDT Clinical Support Hematology [place] [address] Danii Her RN 09/26/2023 8:30 AM EDT Infusion Hematology Oncology at [address] [phone] 10/03/2023 9:00 AM EDT Office Visit Hematology/Oncology at [address] [phone] Adrianne Ramon MD [facility] [place] [address] Yael Merlos APRN [facility] [place] [address] 10/03/2023 9:30 AM EDT Infusion Hematology Oncology at [address] [phone] 10/10/2023 8:30 AM EDT Infusion Hematology Oncology at [address] [phone] documented as of this encounter Visit Diagnoses Not on filedocumented in this encounter Care Teams Organizational Development Manager Relationship Specialty Start Date End Date Frederick Meade MD [address] [place] [address] PCP - General Family Medicine 11/29/17 documented as of this encounter
--- OUTSIDE RECORDS SUMMARY | 2023-09-19 02:34 | XMS_ITS | Encounter Summary ---
Author Organization [facility] Address [facility] [place] [address] Care Team Providers Care Back Roll Lathe Operator Name Role Phone Frederick Meade MD Primary Care Provider +1 [phone] Reason for Visit * Reason Comments Follow-up Chemotherapy Encounter Details Date Type Department Care Team (Late st Contact Info) Description 01/31/2023 8:30 AM EST Office Visit Hematology/Oncology at [address] [phone] Yael Merlos, PARKING STATION ATTENDANT [facility] DR HEMATOLOGY [place] [address] Diffuse large B-cell lymphoma of lymph nodes [...] this encounter Progress Notes * Yael Merlos, PARKING STATION ATTENDANT - 01/31/2023 8:30 AM EST Hematology Clinic [facility] [place] [address] HEMATOLOGY PATIENT EVALUATION PROBLEM LIST: Patient Active [...] ~2 weeks ago saw [facility] in [facility] and when to [facility]. No beds so sent to [facility] for [address] CAP, MRI,and [...] x7 days with nice response. Pathology from [facility] reports large B-cell lymphoma. Double expresser. [...] and needle of cervical LN. FISH from [place] No MYCrearrangement and no fusion of MYC [...] Freire. Enjoys reads, movies, race car, cards. [employer]. 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 Not a . ETOH: 1-3 beers per week Smoking: Quit 1985. Approximately 31-kcan-xhge history Vaping or electronic cigarettes: denies Chewing [...] is a delightful 72-year old male in [facility]. He is accompanied to the [...] and BCL-2 protein (Double Expressor.) Flow cytometry ([id number]) supports this interpretation. FISH from [place] No MYC rearrangement and no fusion of MYC and IGH was observed, CD3 (SP7, Thermo Scientific) Background T-cells CD20 (L26, [place]) diffusely positive in Neoplastic B-cells PAX-5 (1EW, Leica) diffusely positive in Neoplastic B-cells CD10 (SP67, [place]) Negative BCL-6 (G/191E/A8, Imlay) Positive MUM-1 (MUM1p, Dako) Positive Myc (Y69, Abcam) Positive BCL-2 Oncoprotein (124, [place]ay) Positive Ki67 (MIB-1) (K2, Leica) Greater than 95% of cells in cycle Cyclin D1(SP4-R, [place]ay) Negative SAPPHIRE JOSE ([id number], Leica) Negative. DIAGNOSTICS: 01/25/23 ECHO after C#5 [...] undergo investigation with ultrasound. CT CAP at [facility], report and images have been [...] INSTITUTE 1 year post completion of therapy Suspected [...] and counseling as appropriate. Yael Merlos, MSN, PARKING STATION ATTENDANT Nurse Practitioner Section of Hematology Copy Frederick Meade MD documented in this encounter Plan of Treatment Upcoming Encounters Date Type Department Care Team (Late st Contact Info) Description 09/19/2023 8:00 AM EDT Infusion Hematology Oncology at [address] [phone] 09/21/2023 9:30 AM EDT Office Visit Hematology [place] [address] Micha Givens Jr., MD [facility] DR HEMATOLOGY [place] [address] 09/21/2023 10:30 AM EDT Clinical Support Hematology [place] [address] Danii Her RN 09/26/2023 8:30 AM EDT Infusion Hematology Oncology at [address] [address] 10/03/2023 9:00 AM EDT Office Visit Hematology/Oncology at [address] [phone] Adrianne Ramon MD [facility] HEMATOLOGY [place] [address] Yael Merlos APRN [facility] HEMATOLOGY [place] [address] 10/03/2023 9:30 AM EDT Infusion Hematology Oncology at [address] [phone] 10/10/2023 8:30 AM EDT Infusion Hematology Oncology at [address] [phone] documented as of this encounter Procedures Procedure Name Priority Date/Time Associated Diagnosis Comments CBC (WITH DIFF) Routine 01/31/2023 COMPREHENSIVE METABOLIC PANEL (NON-FASTING) Routine 01/31/2023 documented in this encounter Results * (ABNORMAL) Comprehensive metabolic panel (non-fasting) (01/31/2023) [facility] Glucose Lvl 238(H) BUN 13 Creatinine 1.1 Sodium 140 Potassium 3.4(L) Calcium 9.0 Total Protein 6.3(L) Albumin 2.9(L) Total Bilirubin 0.2 Alk Phos 99 AST 21 ALT 24 Ferritin 233 LDH 222 Blood 01/31/2023 Historical Provider CHEMISTRY ORDERAB LES * (ABNORMAL) CBC (with Diff) (01/31/2023) Pathologist [facility] WBC 6.74 RBC 3.26(L) Hemoglobin 9.7(L) Hematocrit 31.0(L) Platelets 318 Neutr Abs (ANC) 4.72 Blood 01/31/2023 Historical Provider HEMATOLOGY ORDERA BLES documented in this encounter Visit Diagnoses Diagnosis Diffuse large B-cell lymphoma of lymph nodes of multiple regions Iron deficiency anemia, unspecified iron deficiency anemia type Clostridium difficile colitis Intestinal infection due to clostridium difficile documented in this encounter Care Teams Back Roll Lathe Operator Relationship Specialty Start Date End Date Frederick Meade MD [address] [place] [address] PCP - General Family Medicine 11/29/17 documented as of this encounter
--- OUTSIDE RECORDS SUMMARY | 2023-09-19 02:34 | XMS_ITS | Encounter Summary ---
Author Organization [facility] [place] [address] Care Team Providers Care Vice President Investor Relations Name Role Phone Frederick Meade MD Primary Care Provider [phone] [phone] Encounter Details Date Type Department Care Team [...] AM EDT Infusion Hematology Oncology at [address] [phone] 09/21/2023 9:30 AM EDT Office Visit [place]ematology [place] [address] Micha Givens Jr., MD [facility] [place] [address] 09/21/2023 10:30 AM EDT Clinical Support [place]ematology [place] [address] Danii Her RN 09/26/2023 8:30 AM EDT Infusion Hematology Oncology at [address] [phone] 10/03/2023 9:00 AM EDT Office Visit Hematology/Oncology at [address] [phone] Adrianne Ramon MD [facility] [place] [address] Yael Merlos APRN [facility] [place] [address] 10/03/2023 9:30 AM EDT Infusion Hematology Oncology at [address] [phone] 10/10/2023 8:30 AM EDT Infusion Hematology Oncology at [address] [phone] documented as of this encounter Visit Diagnoses Not on filedocumented in this encounter Care Teams Vice President Investor Relations Relationship Specialty Start Date End Date Frederick Meade MD [address] [place] [address] PCP - General Family Medicine 11/29/17 documented as of this encounter
--- OUTSIDE RECORDS SUMMARY | 2023-09-19 02:34 | XMS_ITS | Encounter Summary ---
Author Organization [facility] [place] [address] Care Team Providers Care Saloon Keeper Name Role Phone Frederick Meade MD Primary Care Provider +1 [phone] Reason for Visit * Reason Comments Chemotherapy [...] TC CYCLOPHOSPHAMIDE, 100MG (CYTOXAN) Adrianne Ramon MD [facility] [address] HEMATOLOGY [place] [address] [facility] [address] [place] [address] Referral ID Status Reason Start Date Expiration Date Visits Re quested Visits Authorized [id number] Closed 10/11/2022 10/11/2023 1 100 Encounter Details Date Type Department Care Team (Late st Contact Info) Description 11/29/2022 9:30 AM EDT Infusion Hematology Oncology at [address] [phone] Diffuse large B-cell lymphoma of [...] treatment. OBJECTIVE LAB DATA: completed 11/29 [facility] Pre administration: Chemotherapy orders independently verified for [...] AM EDT Infusion Hematology Oncology at [address] [address] 09/21/2023 9:30 AM EDT Office Visit Hematology [place] [address] Micha Givens Jr., MD [facility] DR HEMATOLOGY [place] [address] 09/21/2023 10:30 AM EDT Clinical Support Hematology [place] [address] Danii Her RN 09/26/2023 8:30 AM EDT Infusion Hematology Oncology at [address] [address] 10/03/2023 9:00 AM EDT Office Visit Hematology/Oncology at [address] [address] Adrianne Ramon MD [facility] HEMATOLOGY [place] [address] Yael Merlos, KARLA [facility] [place]EMATOLOG[place] [address] 10/03/2023 9:30 AM EDT Infusion Hematology Oncology at [address] [phone] 10/10/2023 8:30 AM EDT Infusion Hematology Oncology at [address] [phone] documented as of this encounter [...] 2 minutes is a recommendation from the substation operator helper. Administer prior to chemotherapy., Routine Given 11/29/2022 [...] Job Aid: Adult Flushing & Catheter Care (5036) job aid for additional information regarding guidelines [...] Job Aid: Adult Flushing & Catheter Care (6948) job aid for additional information regarding guidelines [...] mL/hr documented in this encounter Care Teams Saloon Keeper Relationship Specialty Start Date End Date Frederick Meade MD [address] [facility] [place] [address] PCP - General Family Medicine 11/29/17 documented as of this encounter
--- OUTSIDE RECORDS SUMMARY | 2023-09-19 02:34 | XMS_ITS | Encounter Summary ---
Author Organization [facility] [place] [address] Care Team Providers Care Door Liner Helper Name Role Phone Frederick Meade MD Primary Care Provider [phone] [phone] Encounter Details Date Type Department Care Team [...] AM EDT Infusion Hematology Oncology at [address] [phone] 09/21/2023 9:30 AM EDT Office Visit Hematology [place] [address] Micha Givens Jr., MD [facility] [place] [address] 09/21/2023 10:30 AM EDT Clinical Support Hematology [place] [address] Danii Her RN 09/26/2023 8:30 AM EDT Infusion Hematology Oncology at [address] [phone] 10/03/2023 9:00 AM EDT Office Visit Hematology/Oncology at [address] [phone] Adrianne Ramon MD [facility] [place] [address] Yael Merlos APRN [facility] [place] [address] 10/03/2023 9:30 AM EDT Infusion Hematology Oncology at [address] [phone] 10/10/2023 8:30 AM EDT Infusion Hematology Oncology at [address] [phone] documented as of this encounter Visit Diagnoses Not on filedocumented in this encounter Care Teams Door Liner Helper Relationship Specialty Start Date End Date Frederick Meade MD [address] [place] [address] PCP - General Family Medicine 11/29/17 documented as of this encounter
--- OUTSIDE RECORDS SUMMARY | 2023-09-19 02:34 | XMS_ITS | Encounter Summary ---
Author Organization [facility] Address [facility] [place] [address] Care Team Providers Care Electronics Production Supervisor Name Role Phone Frederick Meade MD Primary Care Provider +1 -[phone] Encounter Details Date Type Department Care Team (Late st Contact Info) Description 01/10/2023 8:30 AM EST Office Visit Hematology/Oncology at [address] [address] Adrianne Ramon MD [facility] DR [place] [address] Diffuse large B-cell lymphoma of lymph nodes [...] - 01/10/2023 8:30 AM EST Hematology Clinic [facility] [place] [address] HEMATOLOGY PATIENT EVALUATION Patient Active Problem [...] [facility] [place] [facility] and when to [facility]. No beds so sent to [facility] for [address] CAP, MRI,and [...] x7 days with nice response. Pathology from [facility] reports large B-cell lymphoma. Double expresser. FISH for translocations are pending. Tongue swelling. No wt loss. Eating and drinking OK. No fevers, infections, No NS. Pain in neck.Prednisone 60mg daily X 7 days. I feel great on prednisone last day of prednisone is today Took iron supplements per PCP - unclear cause. - last COLO at [facility] was 01/17/2012. INTERIM HISTORY OF [...] and needle of cervical LN. FISH from [place] No MYCrearrangement and no fusion of MYC [...] only 1 biologic. Son Cheo Freire. Enjoys [employer], [employer], [employer]. [employer]ango[employer]. 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 Not a . ETOH: 1-3 beers per week Smoking: Quit 1985. Approximately 24-opii-trgj history Vaping or electronic cigarettes: denies Chewing [...] is a delightful 72-year old male in [facility]. He is accompanied to the clinic [...] and BCL-2 protein (Double Expressor.) Flow cytometry ([id number]) supports this interpretation. FISH from [place] No MYC rearrangement and no fusion of MYC and IGH was observed, CD3 (SP7, Thermo Scientific) Background T-cells CD20 (L26, Grenelefe) diffusely positive in Neoplastic B-cells PAX-5 (1EW, Leica) diffusely positive in Neoplastic B-cells CD10 (SP67, Grenelefe) Negative BCL-6 (G/191E/A8, Grenelefe) Positive MUM-1 (MUM1p, Dako) Positive Myc (Y69, Abcam) Positive BCL-2 Oncoprotein (124, Grenelefe) Positive Ki67 (MIB-1) (K2, Leica) Greater than 95% of cells in cycle Cyclin D1(SP4-R, Grenelefe) Negative SAPPHIRE JOSE ([id number], Leica) Negative. DIAGNOSTICS: 11/28/22 ECHO after C#2 [...] undergo investigation with ultrasound. CT CAP at [facility], report and images have been requested. [...] Jan 2023 - booked for 01/25/23 at [facility] Recommend COVID vaccine though he is aware that he may not have a robust response due to ongoing chemotherapy with B-cell depletion. He has already received influenza vaccine. Final PET week of Mar 05 at [facility] with appt 03/14/22 I discussed all of the above with the patient and all of his questions were answered. Support and counseling as appropriate. Copy Frederick Meade MD documented in this encounter Plan of Treatment Upcoming Encounters Date Type Department Care Team (Late st Contact Info) Description 09/19/2023 8:00 AM EDT Infusion Hematology Oncology at [address] [address] 09/21/2023 9:30 AM EDT Office Visit Hematology [place] [address] Micha Givens Jr., MD [facility] DR [place] [address] 09/21/2023 10:30 AM EDT Clinical Support Hematology [place] [address] Danii Her, RN 09/26/2023 8:30 AM EDT Infusion Hematology Oncology at [address] [phone] 10/03/2023 9:00 AM EDT Office Visit Hematology/Oncology at [address] [phone] Adrianne Ramon MD [facility] [place] [address] Yael Merlos, IMAGER [facility] [place] [address] 10/03/2023 9:30 AM EDT Infusion Hematology Oncology at [address] [phone] 10/10/2023 8:30 AM EDT Infusion Hematology Oncology at [address] [phone] documented as of this encounter Procedures Procedure Name Priority Date/Time Associated Diagnosis Comments CBC (WITH DIFF) Routine 01/10/2023 COMPREHENSIVE METABOLIC PANEL (NON-FASTING) Routine 01/10/2023 documented in this encounter Results * (ABNORMAL) Comprehensive metabolic panel (non-fasting) (01/10/2023) Pathologist [facility] Glucose Lvl 235(H) BUN 11 Creatinine 1.1 [...] regions documented in this encounter Care Teams Electronics Production Supervisor Relationship Specialty Start Date End Date Frederick Meade MD [address] [place] [address] PCP - General Family Medicine 11/29/17 documented as of this encounter
--- OUTSIDE RECORDS SUMMARY | 2023-09-19 02:34 | XMS_ITS | Encounter Summary ---
Author Organization [facility] [place] [address] Care Team Providers Care Cable Spooler Name Role Phone Frederick Meade MD Primary Care Provider +1 [phone] Encounter Details Date Type Department Care Team [...] 8:00 AM EDT Infusion Hematology Oncology at [address] [phone] 09/21/2023 9:30 AM EDT Office Visit Hematology [place] [address] Micha Givens Jr., MD [facility] HEMATOLOGY [place] [address] 09/21/2023 10:30 AM EDT Clinical Support Hematology [place] [address] Danii Her RN 09/26/2023 8:30 AM EDT Infusion Hematology Oncology at [address] [phone] 10/03/2023 9:00 AM EDT Office Visit Hematology/Oncology at [address] [phone] Adrianne Ramon MD [facility] HEMATOLOGY [place] [address] Yael Merlos APRN [facility] HEMATOLOGY [place] [address] 10/03/2023 9:30 AM EDT Infusion Hematology Oncology at [address] [phone] 10/10/2023 8:30 AM EDT Infusion Hematology Oncology at [address] [address] documented as of this encounter Visit Diagnoses Not on filedocumented in this encounter Care Teams Cable Spooler Relationship Specialty Start Date End Date Frederick Meade MD [address] [place] [address] PCP - General Family Medicine 11/29/17 documented as of this encounter
--- OUTSIDE RECORDS SUMMARY | 2023-09-19 02:34 | XMS_ITS | Encounter Summary ---
Author Organization [facility] [place] [address] Care Team Providers Care Upholsterer Assembly Line Name Role Phone Frederick Meade MD Primary Care Provider +1 [phone] Encounter Details Date Type Department Care Team [...] AM EDT Infusion Hematology Oncology at [address] [phone] 09/21/2023 9:30 AM EDT Office Visit Hematology [place] [address] Micha Givens Jr., MD [facility] HEMATOLOGY [place] [address] 09/21/2023 10:30 AM EDT Clinical Support Hematology [place] [address] Danii Her RN 09/26/2023 8:30 AM EDT Infusion Hematology Oncology at [address] [phone] 10/03/2023 9:00 AM EDT Office Visit Hematology/Oncology at [address] [phone] Adrianne Ramon MD [facility] HEMATOLOGY [place] [address] Yael Merlos APRN [facility] HEMATOLOGY [place] [address] 10/03/2023 9:30 AM EDT Infusion Hematology Oncology at [address] [phone] 10/10/2023 8:30 AM EDT Infusion Hematology Oncology at [address] [address] documented as of this encounter Visit Diagnoses Not on filedocumented in this encounter Care Teams Upholsterer Assembly Line Relationship Specialty Start Date End Date Frederick Meade MD [address] [place] [address] PCP - General Family Medicine 11/29/17 documented as of this encounter
--- OUTSIDE RECORDS SUMMARY | 2023-09-19 02:34 | XMS_ITS | Encounter Summary ---
Author Organization 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 [...] AM EDT Infusion Hematology Oncology at [address] [phone] 09/21/2023 9:30 AM EDT Office Visit Hematology [place] [address] Micha Givens Jr., MD [facility] [place] [address] 09/21/2023 10:30 AM EDT Clinical Support Hematology [place] [address] Danii Her, RN 09/26/2023 8:30 AM EDT Infusion Hematology Oncology at [address] [address] 10/03/2023 9:00 AM EDT Office Visit Hematology/Oncology at [address] [address] Adrianne Ramon MD [facility] [place] [address] Yael Merlos, DYEHOUSE WORKER [facility] [place] [address] 10/03/2023 9:30 AM EDT Infusion Hematology Oncology at [address] [address] 10/10/2023 8:30 AM EDT Infusion Hematology Oncology at [address] [phone] documented as of this encounter Procedures Procedure [...] regions documented in this encounter Care Teams Reactor Kettle Operator Relationship Specialty Start Date End Date Frederick Meade MD [address] [place] [address] [address] [place] [address] PCP - General Family Medicine 11/29/17 documented as of this encounter
--- OUTSIDE RECORDS SUMMARY | 2023-09-19 02:34 | XMS_ITS | Encounter Summary ---
Author Organization [facility] [place] [address] Care Team Providers Care Color Printer Operator Name Role Phone Frederick Meade MD Primary Care Provider +1 -[phone] Encounter Details Date Type Department Care Team (Late st Contact Info) Description 11/16/2022 Orders Only Hematology [place] [phone] Adrianne Ramon MD [facility] DR [place] [address] High risk medication use; Diffuse large B-cell [...] AM EDT Infusion Hematology Oncology at [address] [address] 09/21/2023 9:30 AM EDT Office Visit Hematology [place] [address] Micha Givens Jr., MD [facility] DR [place] [address] 09/21/2023 10:30 AM EDT Clinical Support Hematology [place] [address] Danii Her RN 09/26/2023 8:30 AM EDT Infusion Hematology Oncology at [address] [address] 10/03/2023 9:00 AM EDT Office Visit Hematology/Oncology at [address] [address] Adrianne Ramon MD [facility] DR [place] [address] Yael Merlos APRN [facility] DR [place] [address] 10/03/2023 9:30 AM EDT Infusion Hematology Oncology at [address] [phone] 10/10/2023 8:30 AM EDT Infusion Hematology Oncology at [address] [phone] documented as of this encounter Visit Diagnoses Diagnosis High risk medication use Encounter for long-term (current) use of other medications 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
--- OUTSIDE RECORDS SUMMARY | 2023-09-19 02:34 | XMS_ITS | Encounter Summary ---
Author Organization [facility] [place] [address] Care Team Providers Care Dental Technology Advisor Name Role Phone Frederick Meade MD Primary Care Provider +1 -[phone] Reason for Visit * Reason Comments Chemotherapy [...] TC CYCLOPHOSPHAMIDE, 100MG (CYTOXAN) Adrianne Ramon MD [facility] DR [place] [address] [facility] Infusion [address] [place] [address] Referral ID Status Reason Start Date Expiration Date Visits Re quested Visits Authorized [id number] Closed 10/11/2022 10/11/2023 1 100 Encounter Details Date Type Department Care Team (Late st Contact Info) Description 12/20/2022 8:30 AM EDT Infusion Hematology Oncology at [address] [phone] Diffuse large B-cell lymphoma of [...] OBJECTIVE LAB DATA: completed 12/20 at [facility] Pre administration: Chemotherapy orders independently verified for [...] AM EDT Infusion Hematology Oncology at [address] [address] 09/21/2023 9:30 AM EDT Office Visit Hematology [place] [address] Micha Givens Jr., MD [facility] DR [place] [address] 09/21/2023 10:30 AM EDT Clinical Support Hematology [place] [address] Danii Her RN 09/26/2023 8:30 AM EDT Infusion Hematology Oncology at [address] [address] 10/03/2023 9:00 AM EDT Office Visit Hematology/Oncology at [address] [address] Adrianne Ramon MD [facility] DR [place] [address] Yael Merlos APRN [facility] [place] [address] 10/03/2023 9:30 AM EDT Infusion Hematology Oncology at [address] [address] 10/10/2023 8:30 AM EDT Infusion Hematology Oncology at [address] [address] documented as of this encounter Visit Diagnoses [...] 2 minutes is a recommendation from the tie buyer. Administer prior to chemotherapy., Routine Given 12/20/2022 [...] Job Aid: Adult Flushing & Catheter Care (6413) job aid for additional information regarding guidelines [...] mL/hr documented in this encounter Care Teams Dental Technology Advisor Relationship Specialty Start Date End Date Frederick Meade MD [address] [place] [address] PCP - General Family Medicine 11/29/17 documented as of this encounter
--- OUTSIDE RECORDS SUMMARY | 2023-09-19 02:34 | XMS_ITS | Encounter Summary ---
Author Organization [facility] [place] [address] Care Team Providers Care Envelope Sealer Name Role Phone Frederick Meade MD Primary Care Provider [phone] -[phone] Reason for Visit * Reason Onset Date Comments Questions 11/14/2022 Encounter Details Date Type Department Care Team (Late st Contact Info) Description 11/14/2022 Telephone Hematology/Oncology at [address] [address] Colt Ardon, RN Questions Social [...] [facility] are soft formed, not loose He has been taking Metamucil regularly, his wants to make sure that is normal Best call back number [phone] documented in this encounter Plan of Treatment Upcoming Encounters Date Type Department Care Team (Late st Contact Info) Description 09/19/2023 8:00 AM EDT Infusion Hematology Oncology at [address] [address] 09/21/2023 9:30 AM EDT Office Visit [place]ematology [place] [phone] Micha Givens Jr., MD [facility] DR HEMATOLOGY [place] [address] 09/21/2023 10:30 AM EDT Clinical Support [place]emat[place] [address] Danii Her RN 09/26/2023 8:30 AM EDT Infusion Hematology Oncology at [address] [phone] 10/03/2023 9:00 AM EDT Office Visit Hematology/Oncology at [address] [address] Adrianne Ramon MD [facility] DR HEMATOLOGY [place] [address] Yael Merlos, KARLA [facility] DR HEMATOLOGY [place] [address] 10/03/2023 9:30 AM EDT Infusion Hematology Oncology at [address] [phone] 10/10/2023 8:30 AM EDT Infusion Hematology Oncology at [address] [phone] documented as of this encounter Visit Diagnoses Not on filedocumented in this encounter Care Teams Envelope Sealer Relationship Specialty Start Date End Date Frederick Meade MD [address] [place] [address] PCP - General Family Medicine 11/29/17 documented as of this encounter
--- OUTSIDE RECORDS SUMMARY | 2023-09-19 02:34 | XMS_ITS | Encounter Summary ---
Author Organization [facility] [place] [address] Care Team Providers Care Nurse Name Role Phone Frederick Meade MD Primary Care Provider +1 -[phone] Encounter Details Date Type Department Care Team [...] AM EDT Infusion Hematology Oncology at [address] [phone] 09/21/2023 9:30 AM EDT Office Visit Hematology [place] [address] Micha Givens Jr., MD [facility] [place] [address] 09/21/2023 10:30 AM EDT Clinical Support Hematology [place] [address] Danii Her RN 09/26/2023 8:30 AM EDT Infusion Hematology Oncology at [address] [phone] 10/03/2023 9:00 AM EDT Office Visit Hematology/Oncology at [address] [phone] Adrianne Ramon MD [facility] [place] [address] Yael Merlos APRN [facility] [place] [address] 10/03/2023 9:30 AM EDT Infusion Hematology Oncology at [address] [phone] 10/10/2023 8:30 AM EDT Infusion Hematology Oncology at [address] [address] documented as of this encounter Visit Diagnoses Not on filedocumented in this encounter Care Teams Nurse Relationship Specialty Start Date End Date Frederick Meade MD [address] [place] [address] PCP - General Family Medicine 11/29/17 documented as of this encounter
--- OUTSIDE RECORDS SUMMARY | 2023-09-19 02:34 | XMS_ITS | Encounter Summary ---
Author Organization [facility] Address [facility] [place] [address] Care Team Providers Care Extrusion Operator Name Role Phone Frederick Meade MD Primary Care Provider +1 -[phone] Encounter Details Date Type Department Care Team (Late st Contact Info) Description 11/29/2022 Notes Only Hematology/Oncology at [address] [address] Shelley Cason, [facility] OFFICE OF CARE MANAGEMENT [...] the team is looking at more affordableoptions. [employer] does not have a solution to the cost but offered information about the [facility] [employer] which if approved would send a monthly [...] 8:00 AM EDT Infusion Hematology Oncology at [address] [address] 09/21/2023 9:30 AM EDT Office Visit [place]ematology [place] [address] Micha Givens Jr., MD [facility] [place] [address] 09/21/2023 10:30 AM EDT Clinical Support [place]ematology [place] [address] Danii Her RN 09/26/2023 8:30 AM EDT Infusion Hematology Oncology at [address] [phone] 10/03/2023 9:00 AM EDT Office Visit Hematology/Oncology at [address] [phone] Adrianne Ramon MD [facility] DR [place] [address] Yael Merlos APRN [facility] DR [place]EM[place] [address] 10/03/2023 9:30 AM EDT Infusion Hematology Oncology at [address] [phone] 10/10/2023 8:30 AM EDT Infusion Hematology Oncology at [address] [phone] documented as of this encounter Visit Diagnoses Not on filedocumented in this encounter Care Teams Extrusion Operator Relationship Specialty Start Date End Date Frederick Meade MD [address] [place] [address] [address] [place] [address] PCP - General Family Medicine 11/29/17 documented as of this encounter
--- OUTSIDE RECORDS SUMMARY | 2023-09-19 02:34 | XMS_ITS | Encounter Summary ---
Author Organization [facility] [place] [address] Care Team Providers Care Cushion Maker Hand Name Role Phone Frederick Meade MD Primary Care Provider +1 -[phone] Reason for Visit * Reason Comments Chemotherapy [...] TC CYCLOPHOSPHAMIDE, 100MG (CYTOXAN) Adrianne Ramon MD [facility] DR H[place]AT[place] [address] [facility] [address] [place] [phone] Referral ID Status Reason Start Date Expiration Date Visits Re quested Visits Authorized [id number] Closed 10/11/2022 10/11/2023 1 100 Encounter Details Date Type Department Care Team (Late st Contact Info) Description 01/31/2023 9:00 AM EST Infusion Hematology Oncology at [address] [phone] Diffuse large B-cell lymphoma of [...] treatment. OBJECTIVE LAB DATA: completed today at [facility] Pre administration: Chemotherapy orders independently verified [...] AM EDT Infusion Hematology Oncology at [address] [phone] 09/21/2023 9:30 AM EDT Office Visit Hematology [place] [address] Micha Givens Jr., MD [facility] DR [place] [address] 09/21/2023 10:30 AM EDT Clinical Support Hematology [place] [address] Danii Her RN 09/26/2023 8:30 AM EDT Infusion Hematology Oncology at [address] [phone] 10/03/2023 9:00 AM EDT Office Visit Hematology/Oncology at [address] [phone] Adrianne Ramon MD [facility] [place] [address] aYel Merlos APRN [facility] [place] [address] 10/03/2023 9:30 AM EDT Infusion Hematology Oncology at [address] [address] 10/10/2023 8:30 AM EDT Infusion Hematology Oncology at [address] [address] documented as of this encounter Visit Diagnoses [...] 2 minutes is a recommendation from the supplier engineer. Administer prior to chemotherapy., Routine Given 01/31/2023 [...] Job Aid: Adult Flushing & Catheter Care (8635) job aid for additional information regarding guidelines [...] Job Aid: Adult Flushing & Catheter Care (8614) job aid for additional information regarding guidelines [...] mL/hr documented in this encounter Care Teams Cushion Maker Hand Relationship Specialty Start Date End Date Frederick Meade MD [address] [place] [address] PCP - General Family Medicine 11/29/17 documented as of this encounter
--- OUTSIDE RECORDS SUMMARY | 2023-09-19 02:34 | XMS_ITS | Encounter Summary ---
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 and when to [facility]. No beds so sent to [facility] for [address] CAP, [...] x7 days with nice response. Pathology from [facility] reports large B-cell lymphoma. Double expresser. FISH for translocations are pending. Tongue swelling. No wt loss. Eating and drinking OK. No fevers, infections, No NS. Pain in neck.Prednisone 60mg daily X 7 days. I feel great on prednisone last day of prednisone is today Took iron supplements per PCP - unclear cause. - last COLO at [facility] was 01/17/2012. INTERIM HISTORY OF PRESENT [...] and needle of cervical LN. FISH from [place] No MYCrearrangement and no fusion of MYC [...] only 1 biologic. Son Cheo Freire. Enjoys [employer], [employer], [employer], [employer]. [employer]. 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 Not a . ETOH: 1-3 beers per week Smoking: Quit 1985. Approximately 72-nzwi-afpa history Vaping or electronic cigarettes: denies Chewing [...] and BCL-2 protein (Double Expressor.) Flow cytometry ([id number]) supports this interpretation. FISH from [place] No MYC rearrangement and no fusion of MYC and IGH was observed, CD3 (SP7, Thermo Scientific) Background T-cells CD20 (L26, [place]) diffusely positive in Neoplastic B-cells PAX-5 (1EW, Leica) diffusely positive in Neoplastic B-cells CD10 (SP67, [place]) Negative BCL-6 (G/191E/A8, [place]) Positive MUM-1 (MUM1p, Dako) Positive Myc (Y69, Abcam) Positive BCL-2 Oncoprotein (124, [place]) Positive Ki67 (MIB-1) (K2, Leica) Greater than 95% of cells in cycle Cyclin D1(SP4-R, [place]) Negative SAPPHIRE JOSE (SCN5777-R, Leica) Negative. DIAGNOSTICS: 10/10/23 ECHO after C#2 [...] Taking oral iron bid. 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 No COLO in last 10 years. [...] 8:00 AM EDT Infusion Hematology Oncology at [address] [phone] 09/21/2023 9:30 AM EDT Office Visit [place] [address] Micha Givens Jr., MD [facility] [address] [place] [address] 09/21/2023 10:30 AM EDT Clinical Support [place]ology [place] [address] Danii Her, RN 09/26/2023 8:30 AM EDT Infusion Hematology Oncology at [address] [address] 10/03/2023 9:00 AM EDT Office Visit Hematology/Oncology at [address] [phone] Adrianne Ramon MD [facility] [address] [place] [address] Yael Merlos, KARLA [facility] [place] [address] 10/03/2023 9:30 AM EDT Infusion Hematology Oncology at [address] [phone] 10/10/2023 8:30 AM EDT Infusion Hematology Oncology at [address] [phone] Scheduled Orders Name Type Priority Associated Diagnoses [...] type documented in this encounter Care Teams Contact Acid Plant Operator Relationship Specialty Start Date End Date Frederick Meade MD [address] [place] [address] PCP - General Family Medicine 11/29/17 documented as of this encounter
--- OUTSIDE RECORDS SUMMARY | 2023-09-19 02:34 | XMS_ITS | Encounter Summary ---
Author Organization [facility] [place] [address] Care Team Providers Care Certified Registered Nurse Practitioner Name Role Phone Frederick Meade MD Primary Care Provider +1 [phone] Reason for Visit * Reason Comments Follow-up Encounter Details Date Type Department Care Team (Late st Contact Info) Description 11/22/2022 11:30 AM EDT Office Visit Hematology/Oncology at [address] [phone] Adrianne Ramon MD [facility] DR [place] [address] Yael Merlos, MANAGER OF DISASTER RECOVERY [facility] DR [place] [address] 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 No beds so sent to [facility] for [address] CAP, [...] x7 days with nice response. Pathology from [facility] reports large B-cell lymphoma. Double expresser. FISH for translocations are pending. Tongue swelling. No wt loss. Eating and drinking OK. No fevers, infections, No NS. Pain in neck.Prednisone 60mg daily X 7 days. I feel great on prednisone last day of prednisone is today Took iron supplements per PCP - unclear cause. - last COLO at [facility] was 01/17/2012. INTERIM HISTORY [...] has been trying to work through the daycare provider trying to obtain a supply to complete [...] and needle of cervical LN. FISH from [place] No MYCrearrangement and no fusion of MYC [...] only 1 biologic. Son Cheo Freire. Enjoys [employer], [employer], [employer], [employer]. [employer]. 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 Not a . ETOH: 1-3 beers per week Smoking: Quit 1985. Approximately 30-xjkc-owdz history Vaping or electronic cigarettes: denies Chewing [...] is a delightful 72-year old male in [facility]. He is accompanied to the clinic [...] and BCL-2 protein (Double Expressor.) Flow cytometry ([id number]) supports this interpretation. FISH from [place] No MYC rearrangement and no fusion of MYC and IGH was observed, CD3 (SP7, Thermo Scientific) Background T-cells CD20 (L26, [place]) diffusely positive in Neoplastic B-cells PAX-5 (1EW, Leica) diffusely positive in Neoplastic B-cells CD10 (SP67, [place]) Negative BCL-6 (G/191E/A8, [place]) Positive MUM-1 (MUM1p, Dako) Positive Myc (Y69, Abcam) Positive BCL-2 Oncoprotein (124, [place]) Positive Ki67 (MIB-1) (K2, Leica) Greater than 95% of cells in cycle Cyclin D1(SP4-R, [place]) Negative SAPPHIRE JOSE ([id number], Leica) Negative. DIAGNOSTICS: 11/06/22 ECHO after C#1 [...] undergo investigation with ultrasound. CT CAP at [facility], report and images have been requested. [...] 2 tabs per day. 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 No COLO in last 10 years. [...] and counseling as appropriate. Yael Merlos, MSN, MANAGER OF DISASTER RECOVERY Nurse practitioner Section of Hematology/Oncology Copy Frederick Meade MD documented in this encounter Plan of Treatment Upcoming Encounters Date Type Department Care Team (Late st Contact Info) Description 09/19/2023 8:00 AM EDT Infusion Hematology Oncology at [address] [phone] 09/21/2023 9:30 AM EDT Office Visit Hematology [place] [address] Micha Givens Jr., MD [facility] [place] [address] 09/21/2023 10:30 AM EDT Clinical Support Hematology [place] [address] Danii Her, RN 09/26/2023 8:30 AM EDT Infusion Hematology Oncology at [address] [address] 10/03/2023 9:00 AM EDT Office Visit Hematology/Oncology at [address] [address] Adrianne Ramon MD [facility] [place] [address] Yael Merlos APRN [facility] [place] [address] 10/03/2023 9:30 AM EDT Infusion Hematology Oncology at [address] [phone] 10/10/2023 8:30 AM EDT Infusion Hematology Oncology at [address] [phone] documented as of this encounter [...] lung documented in this encounter Care Teams Certified Registered Nurse Practitioner Relationship Specialty Start Date End Date Frederick Meade MD [address] [place] [address] [address] [place] [address] PCP - General Family Medicine 11/29/17 documented as of this encounter
--- OUTSIDE RECORDS SUMMARY | 2023-09-19 02:34 | XMS_ITS | Encounter Summary ---
Author Organization [facility] [place] [address] Care Team Providers Care Horse Identifier Name Role Phone Frederick Meade MD Primary Care Provider [phone] [phone] Encounter Details Date Type Department Care Team (Late st Contact Info) Description 11/08/2022 Notes Only Hematology/Oncology at [address] [phone] Shelley Cason, [facility] OFFICE OF CARE MANAGEMENT Social History Tobacco [...] needs today. Offered support. Reminded Cheo of VENDING MACHINE TECHNICIAN availability and will continue to follow as indicated. Brief assessment Supportive Counseling documented in this encounter Plan of Treatment Upcoming Encounters Date Type Department Care Team (Late st Contact Info) Description 09/19/2023 8:00 AM EDT Infusion Hematology Oncology at [address] [address] 09/21/2023 9:30 AM EDT Office Visit [place]ematology [place] [address] Micha Givens Jr., MD [facility] [address] [place] [address] 09/21/2023 10:30 AM EDT Clinical Support [place] [address] Danii Her RN 09/26/2023 8:30 AM EDT Infusion Hematology Oncology at [address] [phone] 10/03/2023 9:00 AM EDT Office Visit Hematology/Oncology at [address] [phone] Adrianne Ramon MD [facility] [place] [address] Yael Merlos APRN [facility] [place] [address] 10/03/2023 9:30 AM EDT Infusion Hematology Oncology at [address] [phone] 10/10/2023 8:30 AM EDT Infusion Hematology Oncology at [address] [phone] documented as of this encounter Visit Diagnoses Not on filedocumented in this encounter Care Teams Horse Identifier Relationship Specialty Start Date End Date Frederick Meade MD [address] [place] [address] PCP - General Family Medicine 11/29/17 documented as of this encounter
--- OUTSIDE RECORDS SUMMARY | 2023-09-19 02:34 | XMS_ITS | Encounter Summary ---
Author Organization [facility] [place] [address] Care Team Providers Care Software Quality Assurance Engineer Name Role Phone Frederick Meade MD Primary Care Provider [phone] [phone] Reason for Visit * Reason Comments Chemotherapy [id number] * Treatment/Therapy Plan Authorization (Routine) - Closed [...] TC CYCLOPHOSPHAMIDE, 100MG (CYTOXAN) Adrianne Ramon MD [facility] DR [place] [address] [facility] [address] [place] [address] Referral ID Status Reason Start Date Expiration Date Visits Re quested Visits Authorized [id number] Closed 10/11/2022 10/11/2023 1 100 Encounter Details Date Type Department Care Team (Late st Contact Info) Description 01/10/2023 9:00 AM EST Infusion Hematology Oncology at [address] [phone] Diffuse large B-cell lymphoma of [...] treatment. OBJECTIVE LAB DATA: completed today at [facility] Pre administration: Chemotherapy orders [...] 8:00 AM EDT Infusion Hematology Oncology at [address] [phone] 09/21/2023 9:30 AM EDT Office Visit [place]ematology [place] [address] Micha Givens Jr., MD [facility] [place] [address] 09/21/2023 10:30 AM EDT Clinical Support [place] [address] Danii Her RN 09/26/2023 8:30 AM EDT Infusion Hematology Oncology at [address] [phone] 10/03/2023 9:00 AM EDT Office Visit Hematology/Oncology at [address] [phone] Adrianne aRmon MD [facility] [place] [address] Yael Merlos, WEB CONSULTANT [facility] [place] [address] 10/03/2023 9:30 AM EDT Infusion Hematology Oncology at [address] [phone] 10/10/2023 8:30 AM EDT Infusion Hematology Oncology at [address] [phone] documented as of this encounter [...] 2 minutes is a recommendation from the doctor of nurse anesthesia practice. Administer prior to chemotherapy., Routine Given 01/10/2023 [...] Job Aid: Adult Flushing & Catheter Care (1058) job aid for additional information regarding guidelines [...] Job Aid: Adult Flushing & Catheter Care (3634) job aid for additional information regarding guidelines [...] mL/hr documented in this encounter Care Teams Software Quality Assurance Engineer Relationship Specialty Start Date End Date Frederick Meade MD [address] [place] [address] PCP - General Family Medicine 11/29/17 documented as of this encounter
--- OUTSIDE RECORDS SUMMARY | 2023-09-19 02:34 | XMS_ITS | Encounter Summary ---
Author Organization [facility] [place] [address] Care Team Providers Care Lawnmower Mechanic Name Role Phone Frederick Meade MD Primary Care Provider +1 -[phone] Encounter Details Date Type Department Care Team [...] AM EDT Infusion Hematology Oncology at [address] [phone] 09/21/2023 9:30 AM EDT Office Visit Hematology [place] [address] Micha Givens Jr., MD [facility] HEMATOLOGY [place] [address] 09/21/2023 10:30 AM EDT Clinical Support Hematology [place] [address] Danii Her RN 09/26/2023 8:30 AM EDT Infusion Hematology Oncology at [address] [phone] 10/03/2023 9:00 AM EDT Office Visit Hematology/Oncology at [address] [phone] Adrianne Ramon MD [facility] HEMATOLOGY [place] [address] Yael Merlos APRN [facility] HEMATOLOGY [place] [address] 10/03/2023 9:30 AM EDT Infusion Hematology Oncology at [address] [phone] 10/10/2023 8:30 AM EDT Infusion Hematology Oncology at [address] [address] documented as of this encounter Visit Diagnoses Not on filedocumented in this encounter Care Teams Lawnmower Mechanic Relationship Specialty Start Date End Date Frederick Meade MD [address] [place] [address] PCP - General Family Medicine 11/29/17 documented as of this encounter
--- OUTSIDE RECORDS SUMMARY | 2023-09-19 02:34 | XMS_ITS | Encounter Summary ---
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 of multiple regions Procedures NM PET CT Skull Base to Mid-thigh Yael Merlos RADIOLOGY ORDERLY [facility] DR HEMATOLOGY [place] [address] [place] [address] Referral ID Status Reason Start Date Expiration Date V isits Requested Visits Authorized [id number] Closed Specialty Service Requested 01/15/2023 07/15/2024 1 1 Reason for Visit * Diagnostic Test (Routine) - Closed Specialty Diagnoses / Procedures Referred By Contac t Referred To Contact Radiology Diagnoses 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 of multiple regions Procedures NM PET CT Skull Base to Mid-thigh Yael Merlos RADIOLOGY ORDERLY [facility] HEMATOLOGY [place] [address] [place] [address] Referral ID Status Reason Start Date Expiration Date V isits Requested Visits Authorized [id number] Closed Specialty Service Requested 01/15/2023 07/15/2024 1 1 Encounter Details Date Type Department Care Team (Latest Contact Info) Description 03/06/2023 7:52 AM EST - 03/06/2023 11:59 PM EST Hospital Encounter [place] [phone] Yael Merlos APRN [facility] DR HEMATOLOGY [place] [address] 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 Seal SoftwareTOUCH ULTRA BLUE TEST STRIP Strip USE TO [...] AM EDT Infusion Hematology Oncology at [address] [address] 09/21/2023 9:30 AM EDT Office Visit [place]ematology [place] [address] Micha Givens Jr., MD [facility] DR HEMATOLOGY [place] [address] 09/21/2023 10:30 AM EDT Clinical Support [place]ematology [place] [address] Danii Her RN 09/26/2023 8:30 AM EDT Infusion Hematology Oncology at [address] [phone] 10/03/2023 9:00 AM EDT Office Visit Hematology/Oncology at [address] [phone] Adrianne Ramon MD [facility] DR HEMATOLOGY [place] [address] Yael Merlos, KARLA [facility] DR HEMATOLOGY [place] [address] 10/03/2023 9:30 AM EDT Infusion Hematology Oncology at [address] [phone] 10/10/2023 8:30 AM EDT Infusion Hematology Oncology at [address] [phone] documented as of this encounter Procedures Procedure [...] who have questions please contact the health acute care nurse practitioner that requested your imaging first. ? Electronically signed by: Tracey Flood MD, [facility] ??([phone]), at 03/08/2023 11:33 AM Narrative 03/08/2023 11:33 AM EST EXAMINATION: NM PET CT STANDARD SKULL BASE TO MID-THIGH CLINICAL HISTORY: Hematologic malignancy, assess treatment response History of diffuse large B-cell lymphoma, status post 6 cycles of RCHOP. TECHNIQUE: Following IV injection of 33-nirckq-8-deoxyglucose (FDG) a standard uptake of approximately 60 [...] of RCHOP. TECHNIQUE: Following IV injection of 15-thxokf-4-deoxyglucose (FDG) astandard uptake of approximately 60 minutes, [...] patients who have questions please contactthe health acute care nurse practitioner that requested your imaging first. Yael Merlos RADIOLOGY ORDERLY IMG PET ORDERABLES documented in this encounter [...] Port documented in this encounter Care Teams Cage Manager Relationship Specialty Start Date End Date Frederick Meade MD [address] [place] [address] PCP - General Family Medicine 11/29/17 documented as of this encounter
--- OUTSIDE RECORDS SUMMARY | 2023-09-19 02:34 | XMS_ITS | Encounter Summary ---
Author Organization [facility] Address [facility] [place] [address] Care Team Providers Care Staff Services Manager Name Role Phone Frederick Meade MD Primary Care Provider [phone] -[phone] Reason for Visit * Reason Onset Date Comments Other 11/15/2022 To ER Encounter Details Date Type Department Care Team (Late st Contact Info) Description 11/15/2022 Telephone Hematology/Oncology at [address] [phone] Polly Orellana RN Other (To [...] Ramon ask he go to ER. Called [facility] Er and gave report to RN. Recent notes faxed. documented in this encounter Plan of Treatment Upcoming Encounters Date Type Department Care Team (Late st Contact Info) Description 09/19/2023 8:00 AM EDT Infusion Hematology Oncology at [address] [address] 09/21/2023 9:30 AM EDT Office Visit Hematology [place] [address] Micha Givens Jr., MD [facility] [place] [address] 09/21/2023 10:30 AM EDT Clinical Support Hematology [place] [address] Danii Her RN 09/26/2023 8:30 AM EDT Infusion Hematology Oncology at [address] [address] 10/03/2023 9:00 AM EDT Office Visit Hematology/Oncology at [address] [phone] Adrianne Ramon MD [facility] [place] [address] Yael Merlos APRN [facility] [place] [address] 10/03/2023 9:30 AM EDT Infusion Hematology Oncology at [address] [address] 10/10/2023 8:30 AM EDT Infusion Hematology Oncology at [address] [phone] documented as of this encounter Visit Diagnoses Not on filedocumented in this encounter Care Teams Staff Services Manager Relationship Specialty Start Date End Date Frederick Meade MD [address] [place] [address] PCP - General Family Medicine 11/29/17 documented as of this encounter
--- OUTSIDE RECORDS SUMMARY | 2023-09-19 02:34 | XMS_ITS | Encounter Summary ---
Author Organization [facility] [place] [address] Care Team Providers Care Power Sweeper Operator Name Role Phone Frederick Meade MD Primary Care Provider +1 [phone] Encounter Details Date Type Department Care Team (Late st Contact Info) Description 11/16/2022 Telephone Hematology/Oncology at [address] [phone] Brenda Priest, RN Social History [...] Call: Received call from OSCAR Marcelo at [facility] notifying us that patient was admitted [facility] yesterday and is positive for C-Diff. Dr. Ramon and Yael Merlos, LATIN DANCER updated via this note. documented in this encounter Plan of Treatment Upcoming Encounters Date Type Department Care Team (Late st Contact Info) Description 09/19/2023 8:00 AM EDT Infusion Hematology Oncology at [address] [phone] 09/21/2023 9:30 AM EDT Office Visit Hematology [place] [address] Micha Givens Jr., MD [facility] HEMATOLOGY [place] [address] 09/21/2023 10:30 AM EDT Clinical Support Hematology [place] [address] Danii Her RN 09/26/2023 8:30 AM EDT Infusion Hematology Oncology at [address] [phone] 10/03/2023 9:00 AM EDT Office Visit Hematology/Oncology at [address] [phone] Adrianne Ramon MD [facility] DR HEMATOLOGY [place] [address] Yael Merlos APRN [facility] HEMATOLOGY [place] [address] 10/03/2023 9:30 AM EDT Infusion Hematology Oncology at [address] [phone] 10/10/2023 8:30 AM EDT Infusion Hematology Oncology at [address] [phone] documented as of this encounter Visit Diagnoses Not on filedocumented in this encounter Care Teams Power Sweeper Operator Relationship Specialty Start Date End Date Frederick Meade MD [address] [place] [address] [address] [place] [address] PCP - General Family Medicine 11/29/17 documented as of this encounter
--- OUTSIDE RECORDS SUMMARY | 2023-09-19 02:34 | XMS_ITS | Encounter Summary ---
Author Organization [facility] [place] [address] Care Team Providers Care Sight Effects Specialist Name Role Phone Frederick Meade MD Primary Care Provider [phone] Encounter Details Date Type Department Care Team [...] AM EDT Infusion Hematology Oncology at [address] [phone] 09/21/2023 9:30 AM EDT Office Visit [place] [address] Micha Givens Jr., MD [facility] [place] [address] 09/21/2023 10:30 AM EDT Clinical Support [place]ematology [place] [address] Danii Her RN 09/26/2023 8:30 AM EDT Infusion Hematology Oncology at [address] [phone] 10/03/2023 9:00 AM EDT Office Visit Hematology/Oncology at [address] [phone] [facility] [place] [address] [facility] [place] [address] 10/03/2023 9:30 AM EDT Infusion Hematology Oncology at [address] [phone] 10/10/2023 8:30 AM EDT Infusion Hematology Oncology at [address] [address] documented as of this encounter Visit Diagnoses Not on filedocumented in this encounter Care Teams Sight Effects Specialist Relationship Specialty Start Date End Date Frederick Meade MD [address] [place] [address] PCP - General Family Medicine 11/29/17 documented as of this encounter
--- OUTSIDE RECORDS SUMMARY | 2023-09-19 02:34 | XMS_ITS | Encounter Summary ---
Author Organization [facility] Address [facility] [place] [address] Care Team Providers Care Lens Coating Technician Name Role Phone Frederick Meade MD Primary Care Provider [phone] [phone] Encounter Details Date Type Department Care Team (Late st Contact Info) Description 01/31/2023 Notes Only Hematology/Oncology at [address] [address] Shelley Cason, [facility] OFFICE OF CARE [...] did not identify any new needs today. DENTAL EQUIPMENT TECHNICIAN will continue as a resource for them. Brief assessment Supportive Counseling documented in this encounter Plan of Treatment Upcoming Encounters Date Type Department Care Team (Late st Contact Info) Description 09/19/2023 8:00 AM EDT Infusion Hematology Oncology at [address] [address] 09/21/2023 9:30 AM EDT Office Visit Hematology [place] [address] Micha Givens Jr., MD [facility] [address] [place] [address] 09/21/2023 10:30 AM EDT Clinical Support Hematology [place] [address] Danii Her RN 09/26/2023 8:30 AM EDT Infusion Hematology Oncology at [address] [phone] 10/03/2023 9:00 AM EDT Office Visit Hematology/Oncology at [address] [phone] Adrianne Ramon MD [facility] [address] [place] [address] Yael Merlos APRN [facility] [address] [place] [address] 10/03/2023 9:30 AM EDT Infusion Hematology Oncology at [address] [phone] 10/10/2023 8:30 AM EDT Infusion Hematology Oncology at [address] [phone] documented as of this encounter Visit Diagnoses Not on filedocumented in this encounter Care Teams Lens Coating Technician Relationship Specialty Start Date End Date Frederick Meade MD [address] [place] [address] PCP - General Family Medicine 11/29/17 documented as of this encounter
--- OUTSIDE RECORDS SUMMARY | 2023-09-19 02:34 | XMS_ITS | Encounter Summary ---
[place] [address] Care Team Providers Care Engineering Operations Leader Name Role Phone Frederick Meade MD Primary Care Provider [phone] [phone] Reason for Visit * Diagnostic Test (Routine) - Closed Specialty Diagnoses / Procedures Referred By Contac t Referred To Contact Radiology Diagnoses Diffuse large B-cell lymphoma of lymph nodes of multiple regions Procedures NM PET CT Standard Plus Extremities and Head Yael Merlos JAILER [facility] [place] [address] [place] [address] Referral ID Status Reason Start Date Expiration Date V isits Requested Visits Authorized [id number] Closed Specialty Service Requested 12/20/2022 06/19/2024 1 1 Encounter Details Date Type Department Care Team (Latest Contact Info) Description 01/05/2023 7:19 AM EST - 01/05/2023 11:59 PM [facility] [[email or web address] Hospital Encounter [place] [address] Yael Merlos JAILER [facility] [place] [address] Discharge Disposition: Home Social History [...] tablet Take 5 mg by mouth daily. Valentin UzhunUCH ULTRA BLUE TEST STRIP Strip USE TO [...] AM EDT Infusion Hematology Oncology at [address] [address] 09/21/2023 9:30 AM EDT Office Visit Hematology [place] [address] Micha Givens Jr., MD [facility] DR [place] [address] 09/21/2023 10:30 AM EDT Clinical Support Hematology [place] [address] Danii Her RN 09/26/2023 8:30 AM EDT Infusion Hematology Oncology at [address] [address] 10/03/2023 9:00 AM EDT Office Visit Hematology/Oncology at [address] [address] Adrianne Ramon MD [facility] [address] [place] [address] Yael Merlos APRN [facility] [place] [address] 10/03/2023 9:30 AM EDT Infusion Hematology Oncology at [address] [address] 10/10/2023 8:30 AM EDT Infusion Hematology Oncology at [address] [address] documented as of this encounter Procedures Procedure Name Priority Date/Time Associated Diagnosis Comments NM PET CT STANDARD PLUS EXTREMITIES AND HEAD Routine 01/05/2023 9:05 AM EST Diffuse large B-cell lymphoma of lymph nodes of multiple regions POCT GLUCOSE Routine 01/05/2023 7:26 AM EST documented in this encounter Results * POCT Glucose (01/05/2023 7:26 AM EST) POC Glucose 124 65 - 199 mg/dL [facility] Comment: Supplemental ranges: <140 mg/dL before meals <180 mg/dL all other times of the day Blood 01/05/2023 7:26 AM EST 01/05/2023 7:26 AM EST Yael Merlos APRN POINT OF CARE TEST ORDERABLES [facility] [place] [address] documented in this encounter Visit Diagnoses Not on filedocumented in this encounter Care Teams Engineering Operations Leader Relationship Specialty Start Date End Date Frederick Meade MD [address] [place] [address] PCP - General Family Medicine 11/29/17 documented as of this encounter
--- OUTSIDE RECORDS SUMMARY | 2023-09-19 02:34 | XMS_ITS | Encounter Summary ---
[place] [address] Care Team Providers Care Finance Clerk Name Role Phone Frederick Meade MD Primary Care Provider [phone] Reason for Referral * Diagnostic Test (Routine) - Closed Specialty Diagnoses / Procedures Referred By Contac t Referred To Contact Radiology Diagnoses Diffuse large B-cell lymphoma of lymph nodes of multiple regions Procedures NM PET CT Standard Plus Extremities and Head Yael Merlos APRN [facility] DR [place] [address] [place] [address] Referral ID Status Reason Start Date Expiration Date V isits Requested Visits Authorized [id number] Closed Specialty Service Requested 12/20/2022 06/19/2024 1 1 Reason for Visit * Diagnostic Test (Routine) - Closed Specialty Diagnoses / Procedures Referred By Contac t Referred To Contact Radiology Diagnoses Diffuse large B-cell lymphoma of lymph nodes of multiple regions Procedures NM PET CT Standard Plus Extremities and Head Yael Merlos APRN [facility] [place] [address] [place] [address] Referral ID Status Reason Start Date Expiration Date V isits Requested Visits Authorized [id number] Closed Specialty Service Requested 12/20/2022 06/19/2024 1 1 Encounter Details Date Type Department Care Team (Latest Contact Info) Description 01/05/2023 7:19 AM EST - 01/05/2023 11:59 PM EST Hospital Encounter Nuclear Medicine at [facility] [place] [phone] Yael Merlos APRN [facility] DR [place] [address] 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 PuzlTOUCH ULTRA BLUE TEST STRIP Strip USE TO [...] AM EDT Infusion Hematology Oncology at [address] [phone] 09/21/2023 9:30 AM EDT Office Visit Hematology [place] [address] Micha Givens Jr., MD [facility] DR [place] [address] 09/21/2023 10:30 AM EDT Clinical Support Hematology [place] [address] Danii Her, RN 09/26/2023 8:30 AM EDT Infusion Hematology Oncology at [address] [phone] 10/03/2023 9:00 AM EDT Office Visit Hematology/Oncology at [address] [phone] Adrianne Ramon MD [facility] DR [place] [address] Yael Merlos, BOOM CONVEYOR OPERATOR [facility] DR [place] [address] 10/03/2023 9:30 AM EDT Infusion Hematology Oncology at [address] [address] 10/10/2023 8:30 AM EDT Infusion Hematology Oncology at [address] [phone] documented as of this encounter Procedures Procedure [...] who have questions please contact the health healthcare marketer that requested your imaging first. ? Electronically signed by: Fletcher Duckworth MD, [facility] ([phone]), at 01/05/2023 9:50 AM Narrative 01/05/2023 9:50 AM EST EXAMINATION: NM PET CT STANDARD PLUS EXTREMITIES AND HEAD CLINICAL HISTORY: Hematologic malignancy, assess treatment response Non-Hodgkin lymphoma TECHNIQUE: Procedure: Following IV injection of 99-ehbksg-2-deoxyglucose (FDG) a standard uptake of approximately 60 [...] lymphoma TECHNIQUE: Procedure: Following IV injection of 69-hsurpy-5-deoxyglucose(FDG) a standard uptake of approximately 60 minutes, [...] of the left upper lobe (image 131 [id number]). These foci are new since the prior [...] patients who have questions please contactthe health healthcare marketer that requested your imaging first. Electronically signed by: Fletcher Duckworth MD, [facility]([phone]), at 01/05/2023 9:50 AM Yael Merlos BOOM CONVEYOR OPERATOR IMG PET ORDERABLES documented in this encounter [...] Arm documented in this encounter Care Teams Finance Clerk Relationship Specialty Start Date End Date Frederick Meade MD [address] [place] [address] PCP - General Family Medicine 11/29/17 documented as of this encounter
--- OUTSIDE RECORDS SUMMARY | 2023-09-19 02:35 | XMS_ITS | Encounter Summary ---
Author Organization [facility] [place] [address] Care Team Providers Care Change Advisor Name Role Phone Frederick Meade MD Primary Care Provider [phone] Encounter Details Date Type Department Care Team [...] AM EDT Infusion Hematology Oncology at [address] [phone] 09/21/2023 9:30 AM EDT Office Visit Hematology [place] [address] Micha Givens Jr., MD [facility] [place]ATOLOG[place] [address] 09/21/2023 10:30 AM EDT Clinical Support Hematology [place] [address] Danii Her RN 09/26/2023 8:30 AM EDT Infusion Hematology Oncology at [address] [phone] 10/03/2023 9:00 AM EDT Office Visit Hematology/Oncology at [address] [phone] Adrianne Ramon MD [facility] [place] [address] Yael Merlos APRN [facility] [place] [address] 10/03/2023 9:30 AM EDT Infusion Hematology Oncology at [address] [phone] 10/10/2023 8:30 AM EDT Infusion Hematology Oncology at [address] [phone] documented as of this encounter Visit Diagnoses Not on filedocumented in this encounter Care Teams Change Advisor Relationship Specialty Start Date End Date Frederick Meade MD [address] [place] [address] PCP - General Family Medicine 11/29/17 documented as of this encounter
--- OUTSIDE RECORDS SUMMARY | 2023-09-19 02:35 | XMS_ITS | Encounter Summary ---
Author Organization [facility] [place] [address] Care Team Providers Care Podiatry Professor Name Role Phone Frederick Meade MD Primary Care Provider [phone] Encounter Details Date Type Department Care Team (Late st Contact Info) Description 10/19/2022 Telephone Hematology/Oncology at [address] [phone] Brenda Priest, RN Social History [...] AM EDT Infusion Hematology Oncology at [address] [address] 09/21/2023 9:30 AM EDT Office Visit Hematology [place] [address] Micha Givens Jr., MD [facility] [place] [address] 09/21/2023 10:30 AM EDT Clinical Support Hematology [place] [address] Danii Her, RN 09/26/2023 8:30 AM EDT Infusion Hematology Oncology at [address] [phone] 10/03/2023 9:00 AM EDT Office Visit Hematology/Oncology at [address] [phone] Adrianne Ramon MD [facility] DR [place] [address] Yael Merlos APRN [facility] DR [place] [address] 10/03/2023 9:30 AM EDT Infusion Hematology Oncology at [address] [phone] 10/10/2023 8:30 AM EDT Infusion Hematology Oncology at [address] [phone] documented as of this encounter Visit Diagnoses Not on filedocumented in this encounter Care Teams Podiatry Professor Relationship Specialty Start Date End Date Frederick Meade MD [address] [place] [address] PCP - General Family Medicine 11/29/17 documented as of this encounter
--- OUTSIDE RECORDS SUMMARY | 2023-09-19 02:35 | XMS_ITS | Encounter Summary ---
[place] [address] Care Team Providers Care Tutoring Assistant Name Role Phone Frederick Meade MD Primary Care Provider [phone] Reason for Referral * Diagnostic Test (Routine) - Closed Specialty Diagnoses / Procedures Referred By Contac t Referred To Contact Cardiology Diagnoses Diffuse large B-cell lymphoma of lymph nodes of multiple regions Procedures Echocardiogram Transthoracic Adrianne Mera MD [facility] DR [place] [address] [facility] [place] [address] Referral ID Status Reason Start Date Expiration Date V isits Requested Visits Authorized [id number] Closed Specialty Service Requested 10/11/2022 10/11/2023 1 1 Reason for Visit * Diagnostic Test (Routine) - Closed Specialty Diagnoses / Procedures Referred By Contac t Referred To Contact Cardiology Diagnoses Diffuse large B-cell lymphoma of lymph nodes of multiple regions Procedures Echocardiogram Transthoracic Adrianne Mera MD [facility] DR [place]AT[place] [address] [facility] [place] [address] Referral ID Status Reason Start Date Expiration Date V isits Requested Visits Authorized [id number] Closed Specialty Service Requested 10/11/2022 10/11/2023 1 1 Encounter Details Date Type Department Care Team (Late st Contact Info) Description 10/12/2022 9:05 AM EDT - 10/12/2022 10:25 AM EDT Hospital Encounter Non-Invasive Cardiology Lab [facility] [place] [address] Adrianne Mera MD [facility] DR [place] [address] Diffuse large B-cell lymphoma of lymph nodes [...] AM EDT Infusion Hematology Oncology at [address] [address] 09/21/2023 9:30 AM EDT Office Visit Hematology [place] [address] Micha Givens Jr., MD [facility] DR [place]EMAT[place] [address] 09/21/2023 10:30 AM EDT Clinical Support Hematology [place] [address] Danii Her RN 09/26/2023 8:30 AM EDT Infusion Hematology Oncology at [address] [address] 10/03/2023 9:00 AM EDT Office Visit Hematology/Oncology at [address] [address] Adrianne Mera MD [facility] [place] [address] Yael Merlos APRN [facility] [place] [address] 10/03/2023 9:30 AM EDT Infusion Hematology Oncology at [address] [address] 10/10/2023 8:30 AM EDT Infusion Hematology Oncology at [address] [phone] documented as of this encounter Procedures Procedure [...] 09:33 AMBP: 164/86 mmHg ? Patient Location: [facility] : 1950 ? Height: 168 cm ? Account: [id number] Age: 72 yrs ? Weight: 97 kg Gender: Male ?BSA: 2.1 m2 Ordering Physician: ADRIANNE MERA Referring Physician: ADRIANNE MERA Performed By: Teresa Villafuerte RDCS Reason For Study: Diffuse large B-cell lymphoma of lymph nodes of multiple regions Exam Location: [facility]. Interpretation Summary Left ventricle is of normal [...] findings. No comparison study is available. Procedure Complete-[id number]. Satisfactory quality. Left Ventricle Left ventricle is [...] Date: 309:33 AMBP: 164/86 mmHg Patient Location: [facility] : 1950 Height: 168 cm Account: [id number] Age: 72 yrs Weight: 97 kg Gender: Male BSA: 2.1 m2 Ordering Physician: ADRIANNE MERA Referring Physician: ADRIANNE MERA Performed By: Teresa Villafuerte RDCS Reason For Study: Diffuse large B-cell lymphoma of lymph nodes ofmultiple regions Exam Location: [facility]. Interpretation Summary Left ventricle is of normal [...] findings. No comparison study is available. Procedure Complete-[id number]. Satisfactory quality. Left Ventricle Left ventricle is [...] mmHg . The estimated right atrial pressure [id number]. There is Grade I LV diastolic dysfunction [...] regions documented in this encounter Care Teams Tutoring Assistant Relationship Specialty Start Date End Date Frederick Meade MD [address] [place] [address] PCP - General Family Medicine 11/29/17 documented as of this encounter
--- OUTSIDE RECORDS SUMMARY | 2023-09-19 02:35 | XMS_ITS | Encounter Summary ---
[place] [address] Care Team Providers Care Community Services Manager Name Role Phone Frederick Meade MD Primary Care Provider [phone] [phone] Reason for Referral * Diagnostic Test (Routine) - Closed Specialty Diagnoses / Procedures Referred By Contac t Referred To Contact Radiology Diagnoses Diffuse large B-cell lymphoma of lymph nodes of multiple regions Procedures IR [facility] Adrianne Nino MD [facility] DR HEMATOLOGY [place] [address] [facility] [place] [address] Referral ID Status Reason Start Date Expiration Date V isits Requested Visits Authorized [id number] Closed Specialty Service Requested 10/11/2022 04/13/2024 1 1 Reason for Visit * Diagnostic Test (Routine) - Closed Specialty Diagnoses / Procedures Referred By Contac t Referred To Contact Radiology Diagnoses Diffuse large B-cell lymphoma of lymph nodes of multiple regions Procedures IR [facility] Adrianne Nino MD [facility] DR HEMATOLOGY [place] [address] [facility] [place] [address] Referral ID Status Reason Start Date Expiration Date V isits Requested Visits Authorized [id number] Closed Specialty Service Requested 10/11/2022 04/13/2024 1 1 Encounter Details Date Type Department Care Team (Late st Contact Info) Description 10/17/2022 7:32 AM EDT - 10/17/2022 11:15 AM EDT Hospital Encounter Radiology at [facility] [place] [address] Adrianne Ramon MD [facility] DR HEMATOLOGY [place] [address] Diffuse large B-cell lymphoma of lymph nodes [...] provided with an ID card stating the marine service station attendant and type of port you have. Please carry this with you in a safe place. Bandage: There is a sterile dressing over the port site consisting of small gauze with a clear dressing (Tegaderm or [id number] ). This dressing should be left in place for 48 hours. If the clear dressing becomes loose you should place tape over the edges to secure it in place. Note: If you have steri-strips beneath your dressing, simply allow them to fall off. Do not peel them off. There may be Comstock-mcqueen (skin glue) also, allow this to flake [...] is during regular office hours, please call [phone]. If it is after regular office hours, or on weekends or holidays, please call [phone] and ask to speak to the Applications Scientist lamination technician for Interventional Radiology. XXX You have received [...] (home) Telephone Information: PCP: Frederick Meade MD [phone] Date/Time of call: October 18, 2022/9:37 AM [...] of : 1950 AGE: 72 y.o. Address: [address] [place] [address] (home) Mobile: Telephone Information: Referring Provider: Adrianne [...] Questions Answers Where will study be performed? [facility] Radiology [120] Prefered insertion location: No [...] reviewed: Yes Higinio Ramsey MD PGY-3 Pager #[phone] Department of Radiology [facility] [...] access for chemotherapy. IR History: [facility] [place] [facility] 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 Tobacco Use Smoking status: Former Packs/day: 1.00 Types: Cigarettes Quit date: 1985 Years since quittin.6 Smokeless tobacco: Former Quit date: 02/19/1986 Tobacco comments: started smoking in [place] Vaping Use Vaping Use: Never used Substance [...] AM EDT Infusion Hematology Oncology at [address] [address] 09/21/2023 9:30 AM EDT Office Visit Hematology [place] [address] Micha Givens Jr., MD [facility] HEMATOLOGY [place] [address] 09/21/2023 10:30 AM EDT Clinical Support Hematology [place] [address] Danii Her RN 09/26/2023 8:30 AM EDT Infusion Hematology Oncology at [address] [address] 10/03/2023 9:00 AM EDT Office Visit Hematology/Oncology at [address] [address] Adrianne Ramon MD [facility] HEMATOLOGY [place] [address] Yael Merlos, CAN VACUUM TESTER [facility] HEMATOLOGY [place] [address] 10/03/2023 9:30 AM EDT Infusion Hematology Oncology at [address] [phone] 10/10/2023 8:30 AM EDT Infusion Hematology Oncology at [address] [phone] documented as of this encounter Procedures Procedure [...] implant Indication: Diffuse large B-cell lymphoma, durable m[facility] central venous access for chemotherapy Procedure summary: [...] POC Glucose 101 65 - 199 mg/dL [facility] Comment: Supplemental ranges: <140 mg/dL before meals <180 mg/dL all other times of the day Blood 10/17/2022 8:29 AM EDT 10/17/2022 8:29 AM EDT Adrianne Ramon MD POINT [place] [address] documented in this encounter Visit Diagnoses Diagnosis [...] mL/hr documented in this encounter Care Teams Community Services Manager Relationship Specialty Start Date End Date Frederick Meade MD [address] [place] [address] PCP - General Family Medicine 11/29/17 documented as of this encounter
--- OUTSIDE RECORDS SUMMARY | 2023-09-19 02:35 | XMS_ITS | Encounter Summary ---
Author Organization [facility] [place] [address] Care Team Providers Care Retail Client Manager Name Role Phone Frederick Meade MD Primary Care Provider +1 [phone] Encounter Details Date Type Department Care Team (Late st Contact Info) Description 10/20/2022 Telephone Hematology/Oncology at [address] [address] Maeve Nicole, RN Social History [...] Education provided: SEE ABOVE Plan: Reinforced to patient/care-cna caregiver to call facility 11/09 with any new/worsening signs and symptoms orconcerns or questions. Phone number provided. Pt verbalized understanding and is in agreement with plan. documented in this encounter Plan of Treatment Upcoming Encounters Date Type Department Care Team (Late st Contact Info) Description 09/19/2023 8:00 AM EDT Infusion Hematology Oncology at [address] [address] 09/21/2023 9:30 AM EDT Office Visit [place] [address] Micha Givens Jr., MD [facility] DR [place] [address] 09/21/2023 10:30 AM EDT Clinical Support [place] [address] Danii Her RN 09/26/2023 8:30 AM EDT Infusion Hematology Oncology at [address] [address] 10/03/2023 9:00 AM EDT Office Visit Hematology/Oncology at [address] [address] Adrianne Ramon MD [facility] [place] [address] Yael Merlos, KARLA [facility] [place] [address] 10/03/2023 9:30 AM EDT Infusion Hematology Oncology at [address] [address] 10/10/2023 8:30 AM EDT Infusion Hematology Oncology at [address] [address] documented as of this encounter Visit Diagnoses Not on filedocumented in this encounter Care Teams Retail Client Manager Relationship Specialty Start Date End Date Frederick Meade MD [address] [place] [address] PCP - General Family Medicine 11/29/17 documented as of this encounter
--- OUTSIDE RECORDS SUMMARY | 2023-09-19 02:35 | XMS_ITS | Encounter Summary ---
Author Organization [place] [address] Care Team Providers Care Real Estate Firm Manager Name Role Phone Frederick Meade MD Primary Care Provider +1 [phone] Encounter Details Date Type Department Care Team (Latest Contact Info) Description 10/11/2022 3:11 PM EDT - 10/11/2022 11:59 PM EDT [place] [phone] Discharge Disposition: Home Social History Tobacco Use [...] AM EDT Infusion Hematology Oncology at [address] [address] 09/21/2023 9:30 AM EDT Office Visit Hematology [place] [address] Micha Givens Jr., MD [facility] DR HEMATOLOGY [place] [address] 09/21/2023 10:30 AM EDT Clinical Support Hematology [place] [address] Danii Her RN 09/26/2023 8:30 AM EDT Infusion Hematology Oncology at [address] [phone] 10/03/2023 9:00 AM EDT Office Visit Hematology/Oncology at [address] [phone] Adrianne Ramon MD [facility] DR HEMATOLOGY [place] [address] Yael Merlos APRN [facility] HEMATOLOGY [place] [address] 10/03/2023 9:30 AM EDT Infusion Hematology Oncology at [address] [phone] 10/10/2023 8:30 AM EDT Infusion Hematology Oncology at [address] [phone] documented as of this encounter Procedures Procedure Name Priority Date/Time Associated Diagnosis Comments SURGICAL PATHOLOGY REPORT Routine 10/11/2022 3:13 PM EDT documented in this encounter Results * Surgical Pathology Report (10/11/2022 3:13 PM EDT) FINAL DIAGNOSIS (AP) [id number] ? Location: OPW The signing pathologist has (i) examined the relevant preparation(s) for the specimen(s) and (ii) rendered or confirmed the diagnosis(es). . ?Surgical Pathology DIAGNOSIS CONSULTATION CASE ?? A. TONGUE, LEFT BASE (BIOPSY); [OSR# [id number], COLLECTED 10/05/2022, 12 SLIDES]: ?? 1. Diffuse large B-cell lymphoma, activated B-cell subtype (ABC-DLBCL) (see ?comment) ?? 2. Ki67 proliferation estimated at >95%, lymphoma coexpresses BCL2 and CMYC Electronically signed by: ?Ole Bowen MD Verified: ??10/12/2022 11:37 ??Hematopathologist Performed at: ??-[facility] Dept. of Pathology, [place] [address] Casting Technician: Katherine Lopez MD, FCAP, ??CLIA Certificate: [id number] DISCUSSION Per report from the referring institution, ...Flow cytometry ([id number]) supports this interpretation. FISH studies were reportedly sent to [facility] to assess for MYC and [...] referring facility, but included for evaluation at [facility]. Appropriate controls are included for each case. . SPECIMEN(S) SUBMITTED CONSULTATION CASE A - 12 slide(s) labeled [id number], collection date 10/05/2022. [id number] CARBON COPY: [facility] Surgical Pathology Department [facility], [facility], 2nd Floor [address], [place] ??[address] CLINICAL INFORMATION A 72 year old man. Per provided report, there is a clinical history of Massive LAD, history of prostate cancer; clinical diagnosis code: R59.1. SPECIMEN PROCESSING [facility] ([facility]) pathology slide(s) are reviewed. Refer to Diagnosis and Specimen Submitted for specific case information. For the full text of the [facility] report(s) please refer to the Chart Review Media tab in the electronic health record (eDH). 10/12/2022 11:37 AM EDT [facility] Consult Case 10/11/2022 3:13 PM EDT 10/11/2022 3:13 PM EDT Adrianne Ramon MD PATHOLOGY/CYTOLO GY ORDERABLES [facility] [place] [address] documented in this encounter Visit Diagnoses Not on filedocumented in this encounter Care Teams Real Estate Firm Manager Relationship Specialty Start Date End Date Frederick Meade MD [address] [place] [address] PCP - General Family Medicine 11/29/17 documented as of this encounter
--- OUTSIDE RECORDS SUMMARY | 2023-09-19 02:35 | XMS_ITS | Encounter Summary ---
Author Organization [facility] [place] [address] Care Team Providers Care Tortilla Maker Name Role Phone Frederick Meade MD Primary Care Provider [phone] [phone] Reason for Referral * Consultation (Urgent) - Closed Specialty Diagnoses / Procedures Referred By Paul bowen Referred To Contact Cardiology Diagnoses Diffuse large B-cell lymphoma of lymph nodes of multiple regions CARD-ONC Pt w/o cardiac hx. New lymphoma. Needs anthracycline. Echo w/ EF 49% & mild global hypokinesis. Please eval for ongoing anthracycline safety. Adrianne Mera MD [facility] [address] [place] [address] Chalo Mcintyre MD [facility] [place] [address] Referral ID Status Reason Start Date Expiration Date V isits Requested Visits Authorized [id number] Closed Consult, Test & Treat 10/12/2022 10/12/2023 1 1 * Diagnostic Test (Routine) - Closed Specialty Diagnoses / Procedures Referred By Paul bowen Referred To Contact Cardiology Diagnoses Diffuse large B-cell lymphoma of lymph nodes of multiple regions Procedures Echocardiogram Transthoracic Adrianne Mera MD [facility] [place] [address] [facility] [place] [address] Referral ID Status Reason Start Date Expiration Date V isits Requested Visits Authorized [id number] Closed Specialty Service Requested 10/12/2022 10/12/2023 1 1 Reason for Visit * Reason Comments Follow-up Encounter Details Date Type Department Care Team (Late st Contact Info) Description 10/12/2022 1:30 PM EDT Office Visit Hematology [place] [address] Adrianne Mera MD [facility] DR [place] [address] Adrianne Aquino APRN [facility] [place] [address] Diffuse large B-cell lymphoma of [...] - 10/12/2022 1:30 PM EDT [place] [address] NEW PATIENT EVALUATION Patient Active [...] ~2 weeks ago saw [facility] and when to [facility]. No beds so sent to [facility] for [address] CAP, [...] x7 days with nice response. Pathology from [facility] reports large B-cell lymphoma. Double expresser. FISH for translocations are pending. Tongue swelling. No wt loss. Eating and drinking OK. No fevers, infections, No NS. Pain in neck.Prednisone 60mg daily X 7 days. I feel great on prednisone last day of prednisone is today Took iron supplements per PCP - unclear cause. - last COLO at [facility] was 01/17/2012. Cheo returns today with his [...] only 1 biologic. Son Cheo Freire. Enjoys [employer], [employer], race car, cards. [employer]. 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 Not a . ETOH: 1-3 beers per week Smoking: Quit 1985. Approximately 62-yrhw-nsky history Vaping or electronic cigarettes: denies Chewing [...] Result Value Ref Range Surgical Pathology Report [id number] Location: OPW The signing pathologist has (i) examined the relevant preparation(s) for the specimen(s) and (ii) rendered or confirmed the diagnosis(es). . Surgical Pathology DIAGNOSIS CONSULTATION CASE A. TONGUE, LEFT BASE (BIOPSY); [OSR# [id number], COLLECTED 10/05/2022, 12 SLIDES]: 1. Diffuse large B-cell lymphoma, activated B-cell subtype (ABC-DLBCL) (see comment) 2. Ki67 proliferation estimated at >95%, lymphoma coexpresses BCL2 and CMYC Electronically signed by: Ole Bowen MD Verified: 10/12/2022 11:37 Hematopathologist Performed at: -[facility] [place] Dept. of Pathology, [place] [address] Stencil Inspector: Katherine Lopez MD, FCAP, [place] Certificate: [id number] DISCUSSION Per report from the referring institution, ...Flow cytometry ([id number]) supports this interpretation. FISH studies were reportedly sent to [facility] to assess for [...] referring facility, but included for evaluation at [facility] [place]. Appropriate controls are included for each case. . SPECIMEN(S) SUBMITTED CONSULTATION CASE A - 12 slide(s) labeled [id number], collection date 10/05/2022. [id number] CARBON COPY: [facility] Surgical Pathology Department [facility], [facility], 2nd Floor [address] [place] [address] CLINICAL INFORMATION A 72 year old man. Per provided report, there is a clinical history of Massive LAD, history of prostate cancer; clinical diagnosis code: R59.1. SPECIMEN PROCESSING [facility] ([facility]) pathology slide(s) are reviewed. Refer to Diagnosis and Specimen Submitted for specific case information. For the full text of the [facility] report(s) please refer to the Chart [...] and BCL-2 protein (Double Expressor.) Flow cytometry ([id number]) supports this interpretation. The differential classification of this lesion is diffuse large B-cell lymphoma versus high grade B-cell lymphoma with MYC and BCL-2 rearrangement. Material has been sent to [facility] to assess the status of these genes by FISH and an addendum report with a definitive classification will be issued upon receipt of the result. CD3 (SP7, Thermo Scientific) Background T-cells CD20 (L26, [place]) diffusely positive in Neoplastic B-cells PAX-5 (1EW, Leica) diffusely positive in Neoplastic B-cells CD10 (SP67, [place]) Negative BCL-6 (G/191E/A8, [place]) Positive MUM-1 (MUM1p, [place]) Positive Myc (Y69, [employer]cam) Positive BCL-2 Oncoprotein (124, [place]) Positive Ki67 (MIB-1) (K2, Leica) Greater than 95% of cells in cycle Cyclin D1(SP4-R, [place]) Negative SAPPHIRE JOSE (AUE3485-W, Leica) Negative. DIAGNOSTICS: 10/11/22 ECHO EF = [...] undergo investigation with ultrasound. CT CAP at [facility], report and images have been [...] chemotherapy. Furtherprednisone prescriptions will be given by [facility], during PTI chemotherapy teaching Cardiac - EF 49%. No stress test in past. Suspected MEHNAZ - Hgb drop 3gm in last 2 weeks. Taking oral iron 2 tabs per day. Stools have been ignition specialist recently. No COLO in last 10 years. Will add iron studies to labs today and check PET tomorrow.Will follow. Labs seem most consistent with anemia of chronic disease. Prostate Cancer -DAVE at this time Plan: Follow up on FISH for MYC, BCL-2 and BLC-6 -UV sent these tests out to [facility] Prednisone -100 mg on 10/14 and 10/15. Then restart with chemotherapy Mediport -scheduled for Sunday PTI -on 10/18 at 8 AM with Yael Merlos at [facility] Discuss cardiac function, and role of anthracycline with ejection fraction of 49% with Dr. Matthew Mcintyre - message sent today Plan allopurinol X 14 d w/ C#1 Support with Onpro Claritin x1 week status post OnPro ID - acv prophy - add antibiotics only if neutropenic. Midcycle check with Fozia Richardson on 10/25. I appreciate her help. ECHO following C#1 at [facility] [place] approx 10/20/22 Urgent referral to cardiology. Matthew Mcintyre requested. [facility] [place] or [place] I discussed all of the above with the patient and all of his questions were answered. Support and counseling as appropriate. This note was written or modified using [employer] voice recognition software. The final note was screened for cyber legal advisor errors. Please excuse any remaining errors. Addendum staff message from Matthew Mcintyre, Cardiology: Adrianne; Thanks for the message; will see if we can see him up in [place]. On review of his CT, he has [...] AM EDT Infusion Hematology Oncology at [address] [address] 09/21/2023 9:30 AM EDT Office Visit Hematology [place] [address] Micha Givens Jr., MD [facility] [place] [address] 09/21/2023 10:30 AM EDT Clinical Support Hematology [place] [address] Danii Her RN 09/26/2023 8:30 AM EDT Infusion Hematology Oncology at [address] [phone] 10/03/2023 9:00 AM EDT Office Visit Hematology/Oncology at [address] [phone] Adrianne Mera MD [facility] DR [place] [address] Yael Merlos APRN [facility] [place] [address] 10/03/2023 9:30 AM EDT Infusion Hematology Oncology at [address] [address] 10/10/2023 8:30 AM EDT Infusion Hematology Oncology at [address] [phone] Scheduled Referrals Name Type Priority Associated Diagnoses [...] 11:11 AMBP: 154/72 mmHg ? [facility] 1950 ? Height: 169 cm ? Account: [id number] Age: 72 yrs ? Weight: 93 kg Gender: Male ?BSA: 2.0 m2 Ordering Physician: ADRIANNE MERA Referring Physician: ADRIANNE MERA Performed By: SHAHANA Fernando Reason For Study: Lymphoma Exam Location: [facility]. Interpretation Summary LV systolic function appears to be low-normal. LV ejection fraction appears to be 52%. Global longitudinal strain is measured at -16.6 %. (GE). There are no segmental wall motion abnormalities. Normal right ventricle. No significant valvular abnormalities. Trivial pericardial effusion. On direct comparison to prior echo dated 10/12/2022, the LV function has slightly improved. Procedure Limited - [address]342. Left ventricular strain. Satisfactory quality. There is [...] Location: : 1950 Height: 169 cm Account: [id number] Age: 72 yrs Weight: 93 kg Gender: Male BSA: 2.0 m2 Ordering Physician: ADRIANNE MERA Referring Physician: ADRIANNE MERA Performed By: SHAHANA Fernando Reason For Study: Lymphoma Exam Location: [facility]. Interpretation Summary LV systolic function appears to be low-normal. LV ejection fractionappears to be 52%. Global longitudinal strain is measured at -16.6 %. (GE). There areno segmental wall motion abnormalities. Normal right ventricle. No significant valvular abnormalities. Trivial pericardial effusion. On direct comparison to prior echo dated 10/12/2022, the LV function hasslightly improved. Procedure Limited - 25211. Left ventricular strain. Satisfactory quality. There isnormal [...] regions documented in this encounter Care Teams Tortilla Maker Relationship Specialty Start Date End Date Frederick Meade MD [address] [place] [address] 1 [place] [address] PCP - General Family Medicine 11/29/17 documented as of this encounter
--- OUTSIDE RECORDS SUMMARY | 2023-09-19 02:35 | XMS_ITS | Encounter Summary ---
Author Organization [facility] [place] [address] Care Team Providers Care Vacuum Forming Machine Operator Name Role Phone Frederick Meade MD Primary Care Provider [phone] [phone] Encounter Details Date Type Department Care Team (Late st Contact Info) Description 10/11/2022 External [place] [phone] Provider, Scanning Social History Tobacco Use Types [...] AM EDT Infusion Hematology Oncology at [address] [address] 09/21/2023 9:30 AM EDT Office Visit Hematology [place] [address] Micha Givens Jr., MD [facility] DR HEMATOLOGY [place] [address] 09/21/2023 10:30 AM EDT Clinical Support Hematology [place] [address] Danii Her RN 09/26/2023 8:30 AM EDT Infusion Hematology Oncology at [address] [address] 10/03/2023 9:00 AM EDT Office Visit Hematology/Oncology at [address] [address] Adrianne Ramon MD [facility] HEMATOLOGY [place] [address] Yael Merlos, KARLA [facility] HEMATOLOGY [place] [address] 10/03/2023 9:30 AM EDT Infusion Hematology Oncology at [address] [address] 10/10/2023 8:30 AM EDT Infusion Hematology Oncology at [address] [address] documented as of this encounter Procedures Procedure Name Priority Date/Time Associated Diagnosis Comments SURGICAL PATHOLOGY SCAN Routine 10/11/2022 documented in this encounter Results * Scan Doc: Surgical Pathology (10/11/2022) Historical Provider MEDIA MGR SCAN EX T ORDR/RSLT documented in this encounter Visit Diagnoses Not on filedocumented in this encounter Care Teams Vacuum Forming Machine Operator Relationship Specialty Start Date End Date Frederick Meade MD [address] [place] [address] PCP - General Family Medicine 11/29/17 documented as of this encounter
--- OUTSIDE RECORDS SUMMARY | 2023-09-19 02:35 | XMS_ITS | Encounter Summary ---
Author Organization [facility] [place] [address] Care Team Providers Care Enterprise Project Manager Name Role Phone Frederick Meade MD Primary Care Provider [phone] [phone] Reason for Visit * Reason Comments Chemotherapy [...] TC CYCLOPHOSPHAMIDE, 100MG (CYTOXAN) Adrianne Ramon MD [facility] DR HEMATOLOGY [place] [address] [facility] [address] [place] [address] Referral ID Status Reason Start Date Expiration Date Visits Re quested Visits Authorized [id number] Closed 10/11/2022 10/11/2023 1 100 Encounter Details Date Type Department Care Team (Late st Contact Info) Description 10/18/2022 9:00 AM EDT Infusion Hematology Oncology at [address] [phone] Diffuse large B-cell lymphoma of [...] AM EDT Infusion Hematology Oncology at [address] [address] 09/21/2023 9:30 AM EDT Office Visit Hematology [place] [address] Micha Givens Jr., MD [facility] HEMATOLOGY [place] [address] 09/21/2023 10:30 AM EDT Clinical Support Hematology [place] [address] Danii Her RN 09/26/2023 8:30 AM EDT Infusion Hematology Oncology at [address] [address] 10/03/2023 9:00 AM EDT Office Visit Hematology/Oncology at [address] [phone] Adrianne Ramon MD [facility] HEMATOLOGY [place] [address] Yael Merlos, KARLA [facility] HEMATOLOGY [place] [address] 10/03/2023 9:30 AM EDT Infusion Hematology Oncology at [address] [address] 10/10/2023 8:30 AM EDT Infusion Hematology Oncology at [address] [phone] documented as of this encounter [...] 2 minutes is a recommendation from the safety investigator/cause analyst. Administer prior to chemotherapy., Routine Given 10/18/2022 [...] Job Aid: Adult Flushing & Catheter Care (9593) job aid for additional information regarding guidelines [...] mL/hr documented in this encounter Care Teams Enterprise Project Manager Relationship Specialty Start Date End Date Frederick Meade MD [address] [place] [address] PCP - General Family Medicine 11/29/17 documented as of this encounter
--- OUTSIDE RECORDS SUMMARY | 2023-09-19 02:35 | XMS_ITS | Encounter Summary ---
Author Organization [facility] [place] [address] Care Team Providers Care Driver Utility Worker Name Role Phone Frederick Meade MD Primary Care Provider [phone] [phone] Reason for Visit * Reason Comments Chemotherapy [...] TC CYCLOPHOSPHAMIDE, 100MG (CYTOXAN) Adrianne Ramon MD [facility] DR [place] [address] [facility] [address] [place] [address] Referral ID Status Reason Start Date Expiration Date Visits Re quested Visits Authorized [id number] Closed 10/11/2022 10/11/2023 1 100 Encounter Details Date Type Department Care Team (Late st Contact Info) Description 11/08/2022 10:00 AM EDT Infusion Hematology Oncology at [address] [phone] Diffuse large B-cell lymphoma of [...] treatment. OBJECTIVE LAB DATA: completed 11/08 at [facility] Pre administration: Chemotherapy orders [...] AM EDT Infusion Hematology Oncology at [address] [address] 09/21/2023 9:30 AM EDT Office Visit Hematology [place] [address] Micha Givens Jr., MD [facility] DR [place] [address] 09/21/2023 10:30 AM EDT Clinical Support Hematology [place] [address] Danii Her RN 09/26/2023 8:30 AM EDT Infusion Hematology Oncology at [address] [address] 10/03/2023 9:00 AM EDT Office Visit Hematology/Oncology at [address] [phone] Adrianne Ramon MD [facility] [place] [address] Yael Merlos, CASHIER SUPERVISOR [facility] [place] [address] 10/03/2023 9:30 AM EDT Infusion Hematology Oncology at [address] [phone] 10/10/2023 8:30 AM EDT Infusion Hematology Oncology at [address] [phone] documented as of this encounter [...] 2 minutes is a recommendation from the fiber optic central office installer. Administer prior to chemotherapy., Routine Given 11/08/2022 [...] (IV) Procedure: Accessing Implanted Vascular Access Devices (044) procedure and/or Intravenous (IV) Job Aid: Adult Flushing & Catheter Care (6763) job aid for additional information regarding guidelines [...] Job Aid: Adult Flushing & Catheter Care (0132) job aid for additional information regarding guidelines [...] mL/hr documented in this encounter Care Teams Driver Utility Worker Relationship Specialty Start Date End Date Frederick Meade MD [address] [place] [address] PCP - General Family Medicine 11/29/17 documented as of this encounter
--- OUTSIDE RECORDS SUMMARY | 2023-09-19 02:35 | XMS_ITS | Encounter Summary ---
[facility] Organization [facility] Address [facility] [place] [address] Care Team Providers Care Remote Sensing Technologist Name Role Phone Frederick Meade MD Primary Care Provider [phone] [phone] Encounter Details Date Type Department Care Team (Late st Contact Info) Description 10/18/2022 Notes Only Hematology/Oncology at [address] [address] Shelley Cason, [facility] [place]ARE MANAGEMENT [...] this encounter Progress Notes * Shelley Cason, SEWING DEMONSTRATOR - 10/18/2022 11:54 AM EDT Reason for Referral: Brief assessment of social and emotional needs. Met with Cheo, his Claritza and his son Cheo during his first infusion visit today to introduce myself and role of executive secretary social welfare to assess/address barriers to getting to and [...] Advance care planning Plan: Informed pt of SEWING DEMONSTRATOR availability and contact information. Will follow to assess/address psychosocial needs. FRANCISCO J Wisdom, DEPUTY ASSESSOR, OSW-C [employer] [facility] documented in this encounter Plan of Treatment Upcoming Encounters Date Type Department Care Team (Late st Contact Info) Description 09/19/2023 8:00 AM EDT Infusion Hematology Oncology at [address] [address] 09/21/2023 9:30 AM EDT Office Visit Hematology [place] [address] Micha Givens Jr., MD [facility] [place] [address] 09/21/2023 10:30 AM EDT Clinical Support Hematology [place] [address] Danii Her RN 09/26/2023 8:30 AM EDT Infusion Hematology Oncology at [address] [phone] 10/03/2023 9:00 AM EDT Office Visit Hematology/Oncology at [address] [phone] Adrianne Ramon MD [facility] [place] [address] Yael Merlos, KARLA [facility] [place] [address] 10/03/2023 9:30 AM EDT Infusion Hematology Oncology at [address] [address] 10/10/2023 8:30 AM EDT Infusion Hematology Oncology at [address] [address] documented as of this encounter Visit Diagnoses Not on filedocumented in this encounter Care Teams Remote Sensing Technologist Relationship Specialty Start Date End Date Frederick Meade MD [address] [place] [address] PCP - General Family Medicine 11/29/17 documented as of this encounter
--- OUTSIDE RECORDS SUMMARY | 2023-09-19 02:35 | XMS_ITS | Encounter Summary ---
Author Organization [place] [address] Care Team Providers Care Die Engraving Supervisor Name Role Phone Frederick Meade MD Primary Care Provider [phone] [phone] Reason for Visit * Diagnostic Test (Routine) - Closed Specialty Diagnoses / Procedures Referred By Contac t Referred To Contact Radiology Diagnoses Non-Hodgkin lymphoma of lymph nodes of multiple regions, unspecified non-Hodgkin lymphoma type Diffuse large B-cell lymphoma of lymph nodes of multiple regions Procedures NM PET CT Standard Plus Extremities and Head Adrianne Ramon MD [facility] [address] [place] [address] [place] [address] Referral ID Status Reason Start Date Expiration Date V isits Requested Visits Authorized [id number] Closed Specialty Service Requested 10/10/2022 04/12/2024 1 2 Encounter Details Date Type Department Care Team (Late st Contact Info) Description 10/12/2022 10:26 AM EDT - 10/12/2022 11:59 PM EDT Hospital Encounter [place] [address] Adrianne Ramon MD [facility] [place] [address] Discharge Disposition: Home Social History [...] AM EDT Infusion Hematology Oncology at [address] [address] 09/21/2023 9:30 AM EDT Office Visit Hematology [place] [address] Micha Givens Jr., MD [facility] [place] [address] 09/21/2023 10:30 AM EDT Clinical Support Hematology [place] [address] Danii Her RN 09/26/2023 8:30 AM EDT Infusion Hematology Oncology at [address] [address] 10/03/2023 9:00 AM EDT Office Visit Hematology/Oncology at [address] [phone] Adrianne Ramon MD [facility] [place] [address] Yael Merlos, GROUND SUPPORT EQUIPMENT MECHANIC [facility] [place] [address] 10/03/2023 9:30 AM EDT Infusion Hematology Oncology at [address] [phone] 10/10/2023 8:30 AM EDT Infusion Hematology Oncology at [address] [phone] documented as of this encounter Procedures Procedure [...] POC Glucose 113 65 - 199 mg/dL [facility] Comment: Supplemental ranges: <140 mg/dL before meals <180 mg/dL all other times of the day Blood 10/12/2022 11:0 0 AM EDT 10/12/2022 11:00 AM EDT Adrianne Ramon MD POINT OF CARE TE ST ORDERABLES [facility] [place] [address] documented in this encounter Visit Diagnoses Not on filedocumented in this encounter Care Teams Die Engraving Supervisor Relationship Specialty Start Date End Date Frederick Meade MD [address] [place] [address] PCP - General Family Medicine 11/29/17 documented as of this encounter
--- OUTSIDE RECORDS SUMMARY | 2023-09-19 02:35 | XMS_ITS | Encounter Summary ---
Author Organization [facility] Address [facility] [place] [address] Care Team Providers Care Hand Stripper Name Role Phone Frederick Meade MD Primary Care Provider [phone] Reason for Visit * Consultation (Urgent) - Closed Specialty Diagnoses / Procedures Referred By Contac t Referred To Contact Cardiology Diagnoses Diffuse large B-cell lymphoma of lymph nodes of multiple regions CARD-ONC Pt w/o cardiac hx. New lymphoma. Needs anthracycline. Echo w/ EF 49% & mild global hypokinesis. Please eval for ongoing anthracycline safety. Adrianne Ramon MD [facility] [place] [address] Chalo Barbosa MD [facility] [place] [address] Referral ID Status Reason Start Date Expiration Date V isits Requested Visits Authorized [id number] Closed Consult, Test & Treat 10/12/2022 10/12/2023 1 1 Encounter Details Date Type Department Care Team (Latest Contact Info) Description 11/06/2022 2:10 PM EDT Office Visit Cardiology at [place] [phone] Chalo Barbosa MD [facility] [place] [address] Abnormal echocardiogram Social History Tobacco Use Types [...] from the original note were not included. Former[facility] Mike, CHAD [address] CARDIO-ONCOLOGY CONSULTATION Cheo Santos Teressagisell Primary Care [...] Office Visit from 11/06/2022 in [place]iology at [facility] [place] Office Visit from 10/18/2022 in Hematology/Oncology at [facility] Weight 93 kg (205 lb) 1 11/06/2022 [...] AM EDT Infusion Hematology Oncology at [address] [address] 09/21/2023 9:30 AM EDT Office Visit Hematology [place] [address] Micha Givens Jr., MD [facility] [address] [place] [address] 09/21/2023 10:30 AM EDT Clinical Support Hematology [place] [address] Danii Her RN 09/26/2023 8:30 AM EDT Infusion Hematology Oncology at [address] [address] 10/03/2023 9:00 AM EDT Office Visit Hematology/Oncology at [address] [phone] Adrianne Ramon MD [facility] [address] [place] [address] Yael Merlos APRN [facility] [address] [place] [address] 10/03/2023 9:30 AM EDT Infusion Hematology Oncology at [address] [address] 10/10/2023 8:30 AM EDT Infusion Hematology Oncology at [address] [address] Scheduled Referrals Name Type Priority Associated Diagnoses Order Schedule Referral to Cardiology Outpatient Referral Urgent Diffuse large B-cell lymphoma of lymph nodes of multiple regions Ordered: 10/12/2022 documented as of this encounter Visit Diagnoses Diagnosis Abnormal echocardiogram Nonspecific (abnormal) findings on radiological and other examination of other intrathoracic organs documented in this encounter Care Teams Hand Stripper Relationship Specialty Start Date End Date Frederick Meade MD [address] [place] [address] PCP - General Family Medicine 11/29/17 documented as of this encounter
--- OUTSIDE RECORDS SUMMARY | 2023-09-19 02:35 | XMS_ITS | Encounter Summary ---
[place] [address] Care Team Providers Care Credit Administration Manager Name Role Phone Frederick Meade MD Primary Care Provider [phone] [phone] Encounter Details Date Type Department Care Team (Late st Contact Info) Description 10/25/2022 Telephone Hematology [place] [phone] Davey Magdaleno MD [facility] DR [place]EMATOLOGY/[place] [address] Social History Tobacco Use Types Packs/Day Years [...] a call from Dr. Mcbride (Hospitalist) at [facility] this morning in regards to Cheo. 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 He presented to [facility] with an oral temp of 38.6. His [...] saw Dr. Ramon, on 10/12 and started [facility] in [facility] on 10/18 with neupogen. I am [...] AM EDT Infusion Hematology Oncology at [address] [address] 09/21/2023 9:30 AM EDT Office Visit Hematology [place] [address] Micha Givens Jr., MD [facility] [place] [address] 09/21/2023 10:30 AM EDT Clinical Support Hematology [place] [address] Danii Her RN 09/26/2023 8:30 AM EDT Infusion Hematology Oncology at [address] [address] 10/03/2023 9:00 AM EDT Office Visit Hematology/Oncology at [address] [address] Adrianne Ramon MD [facility] [place] [address] Yael Merlso APRN [facility] [place] [address] 10/03/2023 9:30 AM EDT Infusion Hematology Oncology at [address] [phone] 10/10/2023 8:30 AM EDT Infusion Hematology Oncology at [address] [phone] documented as of this encounter Visit Diagnoses Not on filedocumented in this encounter Care Teams Credit Administration Manager Relationship Specialty Start Date End Date Frederick Meade MD [address] [place] [address] PCP - General Family Medicine 11/29/17 documented as of this encounter
--- OUTSIDE RECORDS SUMMARY | 2023-09-19 02:35 | XMS_ITS | Encounter Summary ---
Author Organization [facility] [place] [address] Care Team Providers Care Technical Sales Representative Name Role Phone Frederick Meade MD Primary Care Provider [phone] Reason for Referral * Diagnostic Test (Routine) - Closed Specialty Diagnoses / Procedures Referred By Contac t Referred To Contact Cardiology Diagnoses Diffuse large B-cell lymphoma of lymph nodes of multiple regions Procedures Echocardiogram Transthoracic Adrianne Mera MD [facility] [address] [place] [address] [facility] [place] [address] Referral ID Status Reason Start Date Expiration Date V isits Requested Visits Authorized [id number] Closed Specialty Service Requested 10/11/2022 10/11/2023 1 1 Encounter Details Date Type Department Care Team (Late st Contact Info) Description 10/11/2022 Orders Only Hematology [place] [address] Adrianne Mera MD [facility] [address] [place] [address] Diffuse large B-cell lymphoma of lymph nodes [...] 8:00 AM EDT Infusion Hematology Oncology at [address] [phone] 09/21/2023 9:30 AM EDT Office Visit Hematology [place] [address] Micha Givens Jr., MD [facility] [address] [place] [address] 09/21/2023 10:30 AM EDT Clinical Support [place]ematology [place] [address] Danii Her RN 09/26/2023 8:30 AM EDT Infusion Hematology Oncology at [address] [phone] 10/03/2023 9:00 AM EDT Office Visit Hematology/Oncology at [address] [address] Adrianne Mera MD [facility] [address] [place] [address] Yael Merlos APRN [facility] [address] [place] [address] 10/03/2023 9:30 AM EDT Infusion Hematology Oncology at [address] [phone] 10/10/2023 8:30 AM EDT Infusion Hematology Oncology at [address] [phone] documented as of this encounter Results * ECHO COMPLETE (10/12/2022 10:00 AM EDT) Pathologist [facility] EF 49 HEARTLAB SYSTEM Anatomical Region Laterality Modality Cardiac Other 10/12/2022 9:33 AM EDT Narrative 10/12/2022 10:15 AM EDT ? Echocardiogram Report Name: CHEO MORFIN ? Study Date: 10/12/2022 09:33 AMBP: 164/86 mmHg ? Patient Location: [facility] : 1950 ? Height: 168 cm ? Account: [id number] Age: 72 yrs ? Weight: 97 kg Gender: Male ?BSA: 2.1 m2 Ordering Physician: ADRIANNE MERA Referring Physician: ADRIANNE MERA Performed By: Teresa Villafuerte RDCS Reason For Study: Diffuse large B-cell lymphoma of lymph nodes of multiple regions Exam Location: [facility] [place]. Interpretation Summary Left ventricle is of normal [...] findings. No comparison study is available. Procedure Complete-[id number]. Satisfactory quality. Left Ventricle Left ventricle is [...] Date: 309:33 AMBP: 164/86 mmHg Patient Location: [facility] : 1950 Height: 168 cm Account: [id number] Age: 72 yrs Weight: 97 kg Gender: Male BSA: 2.1 m2 Ordering Physician: ADRIANNE MERA Referring Physician: ADRIANNE MERA Performed By: Teresa Villafuerte RDCS Reason For Study: Diffuse large B-cell lymphoma of lymph nodes ofmultiple regions Exam Location: [facility] [place]. Interpretation Summary Left ventricle is of normal [...] findings. No comparison study is available. Procedure Complete-[id number]. Satisfactory quality. Left Ventricle Left ventricle is [...] mmHg . The estimated right atrial pressure [id number]. There is Grade I LV diastolic dysfunction [...] regions documented in this encounter Care Teams Technical Sales Representative Relationship Specialty Start Date End Date Frederick Meade MD [address] [place] [address] PCP - General Family Medicine 11/29/17 documented as of this encounter
--- OUTSIDE RECORDS SUMMARY | 2023-09-19 02:35 | XMS_ITS | Encounter Summary ---
Author Organization [facility] [place] [address] Care Team Providers Care Photo Editor Name Role Phone Frederick Meade MD Primary Care Provider [phone] Encounter Details Date Type Department Care Team [...] 8:00 AM EDT Infusion Hematology Oncology at [address] [phone] 09/21/2023 9:30 AM EDT Office Visit [place]ematology [place] [address] Micha Givens Jr., MD [facility] [place] [address] 09/21/2023 10:30 AM EDT Clinical Support [place]ematology [place] [address] Danii Her RN 09/26/2023 8:30 AM EDT Infusion Hematology Oncology at [address] [phone] 10/03/2023 9:00 AM EDT Office Visit Hematology/Oncology at [address] [phone] Adrianne Ramon MD [facility] [place] [address] Yael Merlos APRN [facility] [place] [address] 10/03/2023 9:30 AM EDT Infusion Hematology Oncology at [address] [phone] 10/10/2023 8:30 AM EDT Infusion Hematology Oncology at [address] [address] documented as of this encounter Visit Diagnoses Not on filedocumented in this encounter Care Teams Photo Editor Relationship Specialty Start Date End Date Frederick Meade MD [address] [place] [address] PCP - General Family Medicine 11/29/17 documented as of this encounter
--- OUTSIDE RECORDS SUMMARY | 2023-09-19 02:35 | XMS_ITS | Encounter Summary ---
Author Organization [facility] [place] [address] Care Team Providers Care Mortgage Operations Manager Name Role Phone Frederick Meade MD Primary Care Provider [phone] Reason for Visit * Reason Comments Chemotherapy Teaching Encounter Details Date Type Department Care Team (Late st Contact Info) Description 10/18/2022 8:00 AM EDT Office Visit Hematology/Oncology at [address] [address] Adrianne Ramon MD [facility] [address] [place] [address] Yael Merlos, TRUCK DRIVER RUBBISH COLLECTOR [facility] [place] [address] Diffuse large B-cell lymphoma of lymph nodes [...] this encounter Progress Notes * Yael Merlos, TRUCK DRIVER RUBBISH COLLECTOR - 10/18/2022 8:00 AM EDT PATIENT ID: [...] of infection, cataracts and osteoporosis. Medications: please roll picker the following prescriptions before you start treatment [...] further questions or concerns. Yael Merlos, MSN, TRUCK DRIVER RUBBISH COLLECTOR Nurse Practitioner Section of Hematology [facility] Cc: Frederick Meade MD documented in this encounter Plan of Treatment Upcoming Encounters Date Type Department Care Team (Late st Contact Info) Description 09/19/2023 8:00 AM EDT Infusion Hematology Oncology at [address] [phone] 09/21/2023 9:30 AM EDT Office Visit Hematology [place] [address] Micha Givens Jr., MD [facility] [place] [address] 09/21/2023 10:30 AM EDT Clinical Support Hematology [place] [phone] Danii Her RN 09/26/2023 8:30 AM EDT Infusion Hematology Oncology at [address] [phone] 10/03/2023 9:00 AM EDT Office Visit Hematology/Oncology at [address] [phone] Adrianne Ramon MD [facility] [place] [address] Yael Merlos APRN [facility] [place] [address] 10/03/2023 9:30 AM EDT Infusion Hematology Oncology at [address] [phone] 10/10/2023 8:30 AM EDT Infusion Hematology Oncology at [address] [phone] documented as of this encounter Visit Diagnoses Diagnosis Diffuse large B-cell lymphoma of lymph nodes of multiple regions documented in this encounter Care Teams Mortgage Operations Manager Relationship Specialty Start Date End Date Frederick Meade MD [address] [place] [address] PCP - General Family Medicine 11/29/17 documented as of this encounter
--- OUTSIDE RECORDS SUMMARY | 2023-09-19 02:35 | XMS_ITS | Encounter Summary ---
[place] [address] Care Team Providers Care Servicing Manager Name Role Phone Frederick Meade MD Primary Care Provider [phone] Encounter Details Date Type Department Care Team (Late st Contact Info) Description 10/17/2022 Notes Only Hematology [place] [phone] Bailey Moran, RN Social History Tobacco Use [...] AM EDT Infusion Hematology Oncology at [address] [address] 09/21/2023 9:30 AM EDT Office Visit Hematology [place] [address] Micha Givens Jr., MD [facility] DR HEMATOLOGY [place] [address] 09/21/2023 10:30 AM EDT Clinical Support Hematology [place] [address] Danii Her RN 09/26/2023 8:30 AM EDT Infusion Hematology Oncology at [address] [phone] 10/03/2023 9:00 AM EDT Office Visit Hematology/Oncology at [address] [phone] Adrianne Ramon MD [facility] HEMATOLOGY [place] [address] Yael Merlos APRN [facility] [place]EMATOLOGY [place] [address] 10/03/2023 9:30 AM EDT Infusion Hematology Oncology at [address] [phone] 10/10/2023 8:30 AM EDT Infusion Hematology Oncology at [address] [phone] documented as of this encounter Visit Diagnoses Not on filedocumented in this encounter Care Teams Servicing Manager Relationship Specialty Start Date End Date Frederick Meade MD [address] [place] [address] [address] [place] [address] PCP - General Family Medicine 11/29/17 documented as of this encounter
--- OUTSIDE RECORDS SUMMARY | 2023-09-19 02:35 | XMS_ITS | Encounter Summary ---
Author Organization [facility] [place] [address] Care Team Providers Care Gas Meter Repairer Name Role Phone Frederick Meade MD Primary Care Provider [phone] Reason for Visit * Treatment/Therapy Plan Authorization [...] TC CYCLOPHOSPHAMIDE, 100MG (CYTOXAN) Adrianne Ramon MD [facility] [address] [place] [address] [facility] [place] In[facility] [address] [place] [address] Referral ID Status Reason Start Date Expiration Date Visits Re quested Visits Authorized [id number] Closed 10/11/2022 10/11/2023 1 100 Encounter Details Date Type Department Care Team (Latest Contact Info) Description 10/17/2022 11:16 AM EDT - 10/17/2022 11:59 PM EDT Hospital Encounter Hematology [place] [address] Diffuse large B-cell lymphoma of [...] flushed, left accessed for tomorrow infusion at [facility] documented in this encounter Plan of Treatment Upcoming Encounters Date Type Department Care Team (Late st Contact Info) Description 09/19/2023 8:00 AM EDT Infusion Hematology Oncology at [address] [address] 09/21/2023 9:30 AM EDT Office Visit Hematology [place] [address] Micha Givens Jr., MD [facility] [address] [place] [address] 09/21/2023 10:30 AM EDT Clinical Support [place]ematology [place] [address] Danii Her RN 09/26/2023 8:30 AM EDT Infusion Hematology Oncology at [address] [address] 10/03/2023 9:00 AM EDT Office Visit Hematology/Oncology at [address] [address] Adrianne Ramon MD [facility] [address] [place] [address] Yael Merlso, CORRECTIONS UNIT SUPERVISOR [facility] [address] [place] [address] 10/03/2023 9:30 AM EDT Infusion Hematology Oncology at [address] [phone] 10/10/2023 8:30 AM EDT Infusion Hematology Oncology at [address] [phone] Scheduled Orders Name Type Priority Associated Diagnoses [...] (10/17/2022 11:45 AM EDT) Plat Estimate Normal [facility] RBC Morphology Abnormal [facility] Ovalocytes 1-5 /HPF [facility] Tear Drop Cells 1-5 /HPF [facility] Blood 10/17/2022 11:4 5 AM EDT 10/17/2022 12:08 PM EDT Narrative Resulting Agency Comment Spec In Lab Adrianne Ramon MD HEMATOLOGY ORDER DUONG [facility] [place] [address] * (ABNORMAL) Differential, Automated (10/17/2022 11:45 AM EDT) Neutrophils % 68.0 % [facility] Neutr Abs (ANC) 7.17(H) 1.70 - 6.10 x10(3)/mc L [facility] Lymphocytes % 13.6 % [facility] Lymphocytes Abs 1.4 0.9 - 3.2 x10(3)/[facility] Monocytes % 14.8 % [facility] Monocyte Abs 1.6(H) 0.3 - 0.9 x10(3)/[facility] Eosinophils % 2.8 % [facility] Eosinophils Abs 0.3 0.0 - 0.4 x10(3)/[facility] Basophils % 0.3 % [facility] Basophils Abs 0.0 0.0 - 0.1 x10(3)/[facility] Immature Gran % 0.50 % [facility] Comment: Immature granulocytes(IG's)percentage and absolute count will include metamyelocytes, myelocytes, and promyelocytes. Blood smears from CBCs yielding IG's will be scanned manually for concordance. If this scan disagrees with the automated IG or if promyelocytes are noted, a manual differential will be performed. Nellie Gran Abs 0.05(H) 0.00 - 0.04 x10(3)/[facility] Blood 10/17/2022 11:4 5 AM EDT 10/17/2022 12:08 PM EDT Narrative Resulting Agency Comment Spec In Lab Adrianne Ramon MD HEMATOLOGY ORDER DUONG [facility] [place] [address] * (ABNORMAL) Hemogram (10/17/2022 11:45 AM EDT) WBC 10.6(H) 4.0 - 9.5 x10(3)/[facility] RBC 3.68(L) 4.58 - 5.54 x10(6)/[facility] Hemoglobin 11.3(L) 13.7 - 16.5 g/dL [facility] Hematocrit 33.8(L) 40.5 - 48.5 % [facility] MCV 91.8 82.9 - 93.1 fL [facility] MCH 30.7 27.5 - 32.1 pg [facility] MCHC 33.4 32.0 - 35.7 g/dL [facility] Platelets 261 145 - 357 x10(3)/[facility] RDWSD 49.5(H) 36.0 - 45.0 [facility] RDWCV 14.6(H) 11.4 - 13.8 % [facility] MPV 9.4 7.6 - 12.9 [facility] nRBC % Auto 0.0 % [facility] nRBC Abs Auto 0.000 0.000 - 0.000 x10(3)/[facility] Blood 10/17/2022 11:4 5 AM EDT 10/17/2022 12:08 PM EDT Narrative Resulting Agency Comment Spec In Lab Adrianne Ramon MD HEMATOLOGY ORDER DUONG Performing Organization Address City/[facility]/ZIP Co de Phone Number [facility] [place] [address] * Hepatitis C Antibody (10/17/2022 11:45 AM EDT) Hepatitis C Ab Negative Negative [facility] Blood 10/17/2022 11:4 5 AM EDT 10/17/2022 12:08 PM EDT Narrative Resulting Agency Comment Spec In Lab Adrianne Ramon MD IMMUNOLOGY ORDER DUONG [facility] [place] [address] * HIV Screen, 4th Generation (MC/CGP/APD/NLH) (10/17/2022 11:45 AM EDT) HIV-1/2 Ab and Ag Negative Negative [facility] Comment: This 4th Generation HIV [...] HIV Comment Low Risk of HIV Infection [facility] Blood 10/17/2022 11:4 5 AM EDT 10/17/2022 12:08 PM EDT Narrative Resulting Agency Comment Spec In Lab Adrianne Ramon MD IMMUNOLOGY ORDER DUONG Performing Organization Address City/[facility] Co de Phone Number [facility] [place] [address] * Hepatitis B Surface Antibody (10/17/2022 11:45 AM EDT) Pathologist [facility] HepB Surface Ab Quant <3.5 IU/L [facility] Comment: HepB Surface Ab Quant: Unvaccinated: < 8.5 IU/L Vaccinated: >= 11.5 IU/L HepB Surface Ab Negative [facility] Comment: Patient is presumed to be not vaccinated or immune to HBV infection. Expected Results: Vaccinated: Positive Unvaccinated: Negative Blood 10/17/2022 11:4 5 AM EDT 10/17/2022 12:08 PM EDT Narrative Resulting Agency Comment Spec In Lab Adrianne Ramon MD IMMUNOLOGY ORDER DUONG Performing Organization Address City/[facility]/ZIP Co de Phone Number [facility] [place] [address] * Hepatitis B Surface Antigen (10/17/2022 11:45 AM EDT) [facility] HepB Surface Ag Negative Negative [facility] Blood 10/17/2022 11:4 5 AM EDT 10/17/2022 12:08 PM EDT Narrative Resulting Agency Comment Spec In Lab Adrianne Ramon MD CHEMISTRY ORDERA BLES Performing Organization Address City/[facility]/ZIP Co de Phone Number [facility] [place] [address] * Hepatitis B Core Antibody, Total (10/17/2022 11:45 AM EDT) Hep B Core Ab Negative Negative [facility] Blood 10/17/2022 11:4 5 AM EDT 10/17/2022 12:08 PM EDT Narrative Resulting Agency Comment Spec In Lab Adrianne Ramon MD CHEMISTRY ORDERA BLES Performing Organization Address City/[facility] Co de Phone Number [facility] [place] [address] * Uric acid (10/17/2022 11:45 AM EDT) Uric Acid 5.3 3.5 - 8.5 mg/dL [facility] Blood 10/17/2022 11:4 5 AM EDT 10/17/2022 12:08 PM EDT Narrative Resulting Agency Comment Spec In Lab Adrianne Ramon MD CHEMISTRY ORDERA BLES Performing Organization Address City/[facility]/ZIP Co de Phone Number [facility] [place] [address] * Phosphorus (10/17/2022 11:45 AM EDT) Phosphorus 3.2 2.5 - 4.5 mg/dL [facility] Blood 10/17/2022 11:4 5 AM EDT 10/17/2022 12:08 PM EDT Narrative Resulting Agency Comment Spec In Lab Adrianne Ramon MD CHEMISTRY ORDERA BLES Performing Organization Address City/[facility]/ZIP Co de Phone Number [facility] [place] [address] * Magnesium (10/17/2022 11:45 AM EDT) Pathologist [facility] Magnesium 0.78 0.69 - 1.07 mmol/L [facility] Blood 10/17/2022 11:4 5 AM EDT 10/17/2022 12:08 PM EDT Narrative Resulting Agency Comment Spec In Lab Adrianne Ramon MD CHEMISTRY ORDERA BLES Performing Organization Address City/[facility]/ZIP Co de Phone Number [facility] [place] [address] * (ABNORMAL) Lactate Dehydrogenase (10/17/2022 11:45 AM EDT) Pathologist [facility] LDH 251(H) 110 - 220 unit/L [facility] Blood 10/17/2022 11:4 5 AM EDT 10/17/2022 12:08 PM EDT Narrative Resulting Agency Comment Spec In Lab Adrianne Ramon MD CHEMISTRY ORDERA BLES Performing Organization Address [facility]/ZIP Co de Phone Number [facility] [place] [address] * Comprehensive metabolic panel (non-fasting) (10/17/2022 11:45 AM EDT) Pathologist [facility] Glucose Lvl 110 65 - 199 mg/dL [facility] Comment:Diabetes: >=200 mg/d L plus symptoms BUN 17 10 - 20 mg/dL [facility] Creatinine 1.07 0.80 - 1.50 mg/dL [facility] Sodium 139 135 - 145 mmol/L [facility] Potassium 3.6 3.5 - 5.0 mmol/L [facility] Comment: Please note: ??Patients with WBC >100,000 may have falsely elevated Potassium levels. ??For accurate Potassium quantification in these patients send serum separator tube (gold top) for subsequent determinations. ??Contact the Clinical Chemistry Laboratory if there are any questions. Chloride 105 98 - 107 mmol/L [facility] CO2 23 22 - 31 mmol/L [facility] Anion Gap 11 5 - 15 mmol/L [facility] Calcium 8.9 8.5 - 10.5 mg/dL [facility] Total Protein 6.2 6.1 - 8.0 g/dL [facility] Albumin 3.6 3.2 - 5.2 g/dL [facility] AST 14 0 - 39 unit/L [facility] ALT 27 0 - 55 unit/L [facility] Alk Phos 103 40 - 130 unit/L [facility] Total Bilirubin 0.4 0.2 - 1.3 mg/dL [facility] Estimated GFR 73 >=60 mL/min/1. 73 m?? [facility] Comment: This patient's estimated GFR [...] Lab Adrianne Ramon MD CHEMISTRY ORDERA BLES [facility] [place] [address] documented in this encounter Visit Diagnoses Diagnosis [...] Job Aid: Adult Flushing & Catheter Care (8909) job aid for additional information regarding guidelines [...] Job Aid: Adult Flushing & Catheter Care (3078) job aid for additional information regarding guidelines and administration., Routine Given 10/17/2022 12:11 PM EDT 20 mLs documented in this encounter Care Teams Gas Meter Repairer Relationship Specialty Start Date End Date Frederick Meade MD [address] [facility] [address] [place] [address] PCP - General Family Medicine 11/29/17 documented as of this encounter
--- OUTSIDE RECORDS SUMMARY | 2023-09-19 02:35 | XMS_ITS | Encounter Summary ---
Author Organization [facility] Address [facility] [place] [address] Care Team Providers Care Local Area Network Administrator Name Role Phone Frederick Meade MD Primary Care Provider [phone] Reason for Visit * Reason Onset Date Comments Other 10/30/[address] admission to [facility] Encounter Details Date Type Department Care Team (Late st Contact Info) Description 10/30/2022 Telephone Hematology/Oncology at [address] [phone] Lucía Nelson RN Other (FUV questions after admission to [facility]) Social History Tobacco Use Types Packs/Day Years [...] - 10/30/2022 10:39 AM EDT Cheo Freire [id number] Cheo was admitted to [facility] 10/25-10/29 for fevers and neutropenia. Missed his pita apt that Shayy Jarrett APRN was going to do last week. [facility] Cycle 1 10/18. Cycle 2- scheduled for [...] AM EDT Infusion Hematology Oncology at [address] [phone] 09/21/2023 9:30 AM EDT Office Visit [place]ematology [place] [address] Micha Givens Jr., MD [facility] [address] [place] [address] 09/21/2023 10:30 AM EDT Clinical Support [place]ematology [place] [address] Danii Her RN 09/26/2023 8:30 AM EDT Infusion Hematology Oncology at [address] [address] 10/03/2023 9:00 AM EDT Office Visit Hematology/Oncology at [address] [address] Adrianne Ramon MD [facility] [place] [address] Yael Merlos, KARLA [facility] [place] [address] 10/03/2023 9:30 AM EDT Infusion Hematology Oncology at [address] [address] 10/10/2023 8:30 AM EDT Infusion Hematology Oncology at [address] [phone] documented as of this encounter Visit Diagnoses Not on filedocumented in this encounter Care Teams Local Area Network Administrator Relationship Specialty Start Date End Date Frederick Meade MD [address] [place] [address] PCP - General Family Medicine 11/29/17 documented as of this encounter
--- OUTSIDE RECORDS SUMMARY | 2023-09-19 02:35 | XMS_ITS | Encounter Summary ---
Author Organization [facility] Address [facility] [place] [address] Care Team Providers Care Social Service Agency Director Name Role Phone Frederick Meade MD Primary Care Provider [phone] Reason for Visit * Reason Onset Date Comments Follow-up 10/25/2022 Pt admitted to [facility] Encounter Details Date Type Department Care Team (Late st Contact Info) Description 10/25/2022 Telephone Hematology/Oncology at [address] [phone] Colt Ardon RN Follow-up (Pt admitted to [facility] ) Social History Tobacco Use Types Packs/Day [...] to report pt is getting admitted to [facility] with dehydration and low WBC. He did end up having a bowel movement ?last night but this morning couldn't urinate and had abdominal pressure again. They went to [facility] ED. Dr Mcbride at [facility] called and is admitted him, stating hisANC was 20. Pt had cycle 1 RCHOP with Neulasta On-pro on 10/18 for his DLBCL. Team made aware. Will check in on pt's disposition tomorrow. documented in this encounter Plan of Treatment Upcoming Encounters Date Type Department Care Team (Late st Contact Info) Description 09/19/2023 8:00 AM EDT Infusion Hematology Oncology at [address] [phone] 09/21/2023 9:30 AM EDT Office Visit Hematology [place] [address] Micha Givens Jr., MD [facility] DR [place] [address] 09/21/2023 10:30 AM EDT Clinical Support Hematology [place] [address] Danii Her RN 09/26/2023 8:30 AM EDT Infusion Hematology Oncology at [address] [phone] 10/03/2023 9:00 AM EDT Office Visit Hematology/Oncology at [address] [phone] Adrianne Ramon MD [facility] DR [place] [address] Yael Merlos APRN [facility] DR [place] [address] 10/03/2023 9:30 AM EDT Infusion Hematology Oncology at [address] [phone] 10/10/2023 8:30 AM EDT Infusion Hematology Oncology at [address] [phone] documented as of this encounter Visit Diagnoses Not on filedocumented in this encounter Care Teams Social Service Agency Director Relationship Specialty Start Date End Date Frederick Meade MD [address] [place] [address] [address] [place] [address] PCP - General Family Medicine 11/29/17 documented as of this encounter
--- OUTSIDE RECORDS SUMMARY | 2023-09-19 02:35 | XMS_ITS | Encounter Summary ---
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 No beds so sent to [facility] for [address] CAP, MRI,and [...] x7 days with nice response. Pathology from [facility] reports large B-cell lymphoma. Double expresser. FISH for translocations are pending. Tongue swelling. No wt loss. Eating and drinking OK. No fevers, infections, No NS. Pain in neck.Prednisone 60mg daily X 7 days. I feel great on prednisone last day of prednisone is today Took iron supplements per PCP - unclear cause. - last COLO at [facility] was 01/17/2012. Cheo returns today [...] and needle of cervical LN. FISH from [facility] No MYCrearrangement and no fusion of MYC [...] only 1 biologic. Son Cheo Freire. Enjoys [employer]chmaschine publishing, [email or web address], race car, [employer]. Bowling [employer]. 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 Not a . ETOH: 1-3 beers per week Smoking: Quit 1985. Approximately 47-nvru-pklw history Vaping or electronic cigarettes: denies Chewing [...] and BCL-2 protein (Double Expressor.) Flow cytometry ([id number]) supports this interpretation. FISH from [facility] No MYC rearrangement and no fusion of MYC and IGH was observed, CD3 (SP7, [employer]) Background T-cells CD20 (L26, [place]) diffusely positive in Neoplastic B-cells PAX-5 (1EW, Leica) diffusely positive in Neoplastic B-cells CD10 (SP67, [place]) Negative BCL-6 (G/191E/A8, [place]) Positive MUM-1 (MUM1p, Dako) Positive Myc (Y69, Abcam) Positive BCL-2 Oncoprotein (124, [place]) Positive Ki67 (MIB-1) (K2, Leica) Greater than 95% of cells in cycle Cyclin D1(SP4-R, [place]) Negative SAPPHIRE JOSE (BND2624-H, Leica) Negative. DIAGNOSTICS: 11/06/22 ECHO after C#1 [...] undergo investigation with ultrasound. CT CAP at [facility], report and images have been requested. [...] chemotherapy. Furtherprednisone prescriptions will be given by CLINICAL MARKETING MANAGER, during PTI chemotherapy teaching Suspected MEHNAZ - Hgb drop 3gm in last 2 weeks. Taking oral iron 2 tabs per day. Stools have been oral and maxillofacial pathologist recently. No COLO in last 10 years. [...] in 3 weeks. ECHO following C#3 at [facility] - week of Dec 04 or Dec 11 I discussed all of the above with the patient and all of his questions were answered. Support and counseling as appropriate. This note was written or modified using [employer] voice recognition software. The final note was screened for rn on site errors. Please excuse any remaining errors. Addendum staff message from Matthew Barbosa, Cardiology: Adrianne; Thanks for the message; will see if we can see him up in [place]. On review of his CT, he has [...] AM EDT Infusion Hematology Oncology at [address] [phone] 09/21/2023 9:30 AM EDT Office Visit Hematology [place] [address] Micha Givens Jr., MD [facility] DR HEMATOLOGY [place] [address] 09/21/2023 10:30 AM EDT Clinical Support Hematology [place] [address] Danii Her, RN 09/26/2023 8:30 AM EDT Infusion Hematology Oncology at [address] [phone] 10/03/2023 9:00 AM EDT Office Visit Hematology/Oncology at [address] [phone] Adrianne Mera MD [facility] DR HEMATOLOGY [place] [address] Yael Merlos APRN [facility] HEMATOLOGY [place] [address] 10/03/2023 9:30 AM EDT Infusion Hematology Oncology at [address] [phone] 10/10/2023 8:30 AM EDT Infusion Hematology Oncology at [address] [phone] documented as of this encounter Procedures Procedure [...] medications documented in this encounter Care Teams Sanitary Napkin Machine Tender Relationship Specialty Start Date End Date Frederick Meade MD [address] [place] [address] PCP - General Family Medicine 11/29/17 documented as of this encounter
--- OUTSIDE RECORDS SUMMARY | 2023-09-19 02:35 | XMS_ITS | Encounter Summary ---
Author Organization [facility] [place] [address] Care Team Providers Care Certified Ophthalmic Assistant Name Role Phone Frederick Meade MD Primary Care Provider [phone] Encounter Details Date Type Department Care Team [...] AM EDT Infusion Hematology Oncology at [address] [phone] 09/21/2023 9:30 AM EDT Office Visit [place]ology [place] [address] Micha Givens Jr., MD [facility] HEMATOLOGY [place] [address] 09/21/2023 10:30 AM EDT Clinical Support [place] [address] Danii Her RN 09/26/2023 8:30 AM EDT Infusion Hematology Oncology at [address] [phone] 10/03/2023 9:00 AM EDT Office Visit Hematology/Oncology at [address] [phone] Adrianne Ramon MD [facility] H[place]ATOLOGY [place] [address] Yael Merlos APRN [facility] [place] [address] 10/03/2023 9:30 AM EDT Infusion Hematology Oncology at [address] [phone] 10/10/2023 8:30 AM EDT Infusion Hematology Oncology at [address] [phone] documented as of this encounter Visit Diagnoses Not on filedocumented in this encounter Care Teams Certified Ophthalmic Assistant Relationship Specialty Start Date End Date Frederick Meade MD [address] [place] [address] PCP - General Family Medicine 11/29/17 documented as of this encounter
--- OUTSIDE RECORDS SUMMARY | 2023-09-19 02:35 | XMS_ITS | Encounter Summary ---
Author Organization [facility] Address [facility] [place] [address] Care Team Providers Care Leak Detection Engineer Name Role Phone Frederick Meade MD Primary Care Provider [phone] Reason for Visit * Reason Onset Date Comments Follow-up 10/26/2022 Encounter Details Date Type Department Care Team (Late st Contact Info) Description 10/26/2022 Telephone Hematology/Oncology at [address] [phone] Tania Rosales, RN Follow-up Social [...] than yesterday. He is still admitted at [facility] and relays that the care plan is to keep him admitted until his WBC go up. Per the [facility] progress note, the goal is for an ANC greater than 500 and he is stable, labs this morning his ANC was 90. His next FUV here is 11/08. Cheo was thankful for the call. documented in this encounter Plan of Treatment Upcoming Encounters Date Type Department Care Team (Late st Contact Info) Description 09/19/2023 8:00 AM EDT Infusion Hematology Oncology at [address] [address] 09/21/2023 9:30 AM EDT Office Visit Hematology [place] [address] Micha Givens Jr., MD [facility] HEMATOLOGY [place] [address] 09/21/2023 10:30 AM EDT Clinical Support [place]ematology [place] [phone] Danii Her RN 09/26/2023 8:30 AM EDT Infusion Hematology Oncology at [address] [phone] 10/03/2023 9:00 AM EDT Office Visit Hematology/Oncology at [address] [phone] Adrianne Ramon MD [facility] HEMATOLOGY [place] [address] Yael Merlos APRN [facility] HEMATOLOGY [place] [address] 10/03/2023 9:30 AM EDT Infusion Hematology Oncology at [address] [phone] 10/10/2023 8:30 AM EDT Infusion Hematology Oncology at [address] [phone] documented as of this encounter Visit Diagnoses Not on filedocumented in this encounter Care Teams Leak Detection Engineer Relationship Specialty Start Date End Date Frederick Meade MD [address] [place] [address] PCP - General Family Medicine 11/29/17 documented as of this encounter
--- OUTSIDE RECORDS SUMMARY | 2023-09-19 02:35 | XMS_ITS | Encounter Summary ---
[place] [address] Care Team Providers Care Manager Of Information Name Role Phone Frederick Meade MD Primary Care Provider [phone] Encounter Details Date Type Department Care Team (Late st Contact Info) Description 10/24/2022 Telephone Hematology [place] [phone] Castro Jimenez MD [facility] HEMATOLOGY/[place] [address] Social History Tobacco Use Types Packs/Day Years [...] Dr. Ramon, . office Castro Jimenez MD [facility] Hematology Oncology Fellow Page [phone] documented in this encounter Plan of Treatment Upcoming Encounters Date Type Department Care Team (Late st Contact Info) Description 09/19/2023 8:00 AM EDT Infusion Hematology Oncology at [address] [phone] 09/21/2023 9:30 AM EDT Office Visit Hematology [place] [address] Micha Givens Jr., MD [facility] DR HEMATOLOGY [place] [address] 09/21/2023 10:30 AM EDT Clinical Support Hematology [place] [address] Danii Her, RN 09/26/2023 8:30 AM EDT Infusion Hematology Oncology at [address] [phone] 10/03/2023 9:00 AM EDT Office Visit Hematology/Oncology at [address] [phone] Adrianne Ramon MD [facility] DR HEMATOLOGY [place] [address] Yael Merlos APRN [facility] DR HEMATOLOGY [place] [address] 10/03/2023 9:30 AM EDT Infusion Hematology Oncology at [address] [phone] 10/10/2023 8:30 AM EDT Infusion Hematology Oncology at [address] [phone] documented as of this encounter Visit Diagnoses Not on filedocumented in this encounter Care Teams Manager Of Information Relationship Specialty Start Date End Date Frederick Meade MD [address] [place] [address] PCP - General Family Medicine 11/29/17 documented as of this encounter
--- OUTSIDE RECORDS SUMMARY | 2023-09-19 02:35 | XMS_ITS | Encounter Summary ---
Author Organization [facility] [place] [address] Care Team Providers Care Digital Product Manager Name Role Phone Frederick Meade MD Primary Care Provider [phone] Reason for Visit * Reason Onset Date Comments Follow-up 11/01/2022 Encounter Details Date Type Department Care Team (Late st Contact Info) Description 11/01/2022 Telephone Hematology/Oncology at [address] [phone] Polly Orellana RN Follow-up Social [...] Dr. Ramon needs them to go to [facility] next Sunday to see Dr. Barbosa. They feel if things continue to get better therewill be no issue, they will let us know if things change. documented in this encounter Plan of Treatment Upcoming Encounters Date Type Department Care Team (Late st Contact Info) Description 09/19/2023 8:00 AM EDT Infusion Hematology Oncology at [address] [phone] 09/21/2023 9:30 AM EDT Office Visit Hematology [place] [address] Micha Givens Jr., MD [facility] DR HEMATOLOGY [place] [address] 09/21/2023 10:30 AM EDT Clinical Support Hematology [place] [phone] Danii Her RN 09/26/2023 8:30 AM EDT Infusion Hematology Oncology at [address] [phone] 10/03/2023 9:00 AM EDT Office Visit Hematology/Oncology at [address] [phone] Adrianne Ramon MD [facility] DR HEMATOLOGY [place] [address] Yael Merlos APRN [facility] HEMATOLOGY [place] [address] 10/03/2023 9:30 AM EDT Infusion Hematology Oncology at [address] [phone] 10/10/2023 8:30 AM EDT Infusion Hematology Oncology at [address] [phone] documented as of this encounter Visit Diagnoses Not on filedocumented in this encounter Care Teams Digital Product Manager Relationship Specialty Start Date End Date Frederick Meade MD [address] [place] [address] PCP - General Family Medicine 11/29/17 documented as of this encounter
--- OUTSIDE RECORDS SUMMARY | 2023-09-19 02:35 | XMS_ITS | Encounter Summary ---
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 of multiple regions Procedures Echocardiogram Transthoracic Adrianne Mera MD [facility] DR [place] [address] [facility] [place] [address] Referral ID Status Reason Start Date Expiration Date V isits Requested Visits Authorized [id number] Closed Specialty Service Requested 10/12/2022 10/12/2023 1 1 Reason for Visit * Diagnostic Test (Routine) - Closed Specialty Diagnoses / Procedures Referred By Contac t Referred To Contact Cardiology Diagnoses 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 of multiple regions Procedures Echocardiogram Transthoracic Adrianne Mera MD [facility] DR [place] [address] [facility] [place] [address] Referral ID Status Reason Start Date Expiration Date V isits Requested Visits Authorized [id number] Closed Specialty Service Requested 10/12/2022 10/12/2023 1 1 Encounter Details Date Type Department Care Team (Late st Contact Info) Description 11/06/2022 10:45 AM EDT - 11/06/2022 11:59 PM EDT Hospital Encounter Non-Invasive Cardiology Lab [facility] [place] [address] Adrianne Mera MD [facility] DR [place] [address] 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 [...] 8:00 AM EDT Infusion Hematology Oncology at [address] [phone] 09/21/2023 9:30 AM EDT Office Visit Hematology [place] [address] Micha Givens Jr., MD [facility] DR [place] [address] 09/21/2023 10:30 AM EDT Clinical Support Hematology [place] [address] Danii Her RN 09/26/2023 8:30 AM EDT Infusion Hematology Oncology at [address] [phone] 10/03/2023 9:00 AM EDT Office Visit Hematology/Oncology at [address] [phone] Adrianne Mera MD [facility] DR [place] [address] Yael Merlos APRN [facility] DR [place] [address] 10/03/2023 9:30 AM EDT Infusion Hematology Oncology at [address] [phone] 10/10/2023 8:30 AM EDT Infusion Hematology Oncology at [address] [phone] documented as of this encounter Procedures Procedure [...] 1950 ? Height: 169 cm ? Account: [id number] Age: 72 yrs ? Weight: 93 kg Gender: Male ?BSA: 2.0 m2 Ordering Physician: ADRIANNE MERA Referring Physician: ADRIANNE MERA Performed By: SHAHANA Fernando Reason For Study: Lymphoma Exam Location: [facility]. Interpretation Summary LV systolic function appears to be low-normal. LV ejection fraction appears to be 52%. Global longitudinal strain is measured at -16.6 %. (GE). There are no segmental wall motion abnormalities. Normal right ventricle. No significant valvular abnormalities. Trivial pericardial effusion. On direct comparison to prior echo dated 10/12/2022, the LV function has slightly improved. Procedure Limited - 22246. Left ventricular strain. Satisfactory quality. There is [...] Location: : 1950 Height: 169 cm Account: [id number] Age: 72 yrs Weight: 93 kg Gender: Male BSA: 2.0 m2 Ordering Physician: ADRIANNE MERA Referring Physician: ADRIANNE MERA Performed By: SHAHANA Fernando Reason For Study: Lymphoma Exam Location: [facility]. Interpretation Summary LV systolic function appears to be low-normal. LV ejection fractionappears to be 52%. Global longitudinal strain is measured at -16.6 %. (GE). There areno segmental wall motion abnormalities. Normal right ventricle. No significant valvular abnormalities. Trivial pericardial effusion. On direct comparison to prior echo dated 10/12/2022, the LV function hasslightly improved. Procedure Limited - 24169. Left ventricular strain. Satisfactory quality. There isnormal [...] regions documented in this encounter Care Teams Shuttle Operator Relationship Specialty Start Date End Date Frederick Meade MD [address] [place] [address] PCP - General Family Medicine 11/29/17 documented as of this encounter
--- OUTSIDE RECORDS SUMMARY | 2023-09-19 02:35 | XMS_ITS | Encounter Summary ---
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 of multiple regions Procedures NM PET CT Standard Plus Extremities and Head Adrianne Ramon MD [facility] DR [place] [address] [place] [address] Referral ID Status Reason Start Date Expiration Date V isits Requested Visits Authorized [id number] Closed Specialty Service Requested 10/10/2022 04/12/2024 1 [...] Extremities and Head Adrianne Ramon MD [facility] DR [place] [address] [facility] [place] [address] Referral ID Status Reason Start Date Expiration Date V isits Requested Visits Authorized [id number] Closed Specialty Service Requested 10/10/2022 04/12/2024 1 2 Encounter Details Date Type Department Care Team (Late st Contact Info) Description 10/12/2022 10:26 AM EDT - 10/12/2022 11:59 PM EDT Hospital En[place] [phone] Adrianne Ramon MD [facility] DR [place] [address] Non-Hodgkin lymphoma of lymph nodes [...] 8:00 AM EDT Infusion Hematology Oncology at [address] [phone] 09/21/2023 9:30 AM EDT Office Visit Hematology [place] [address] Micha Givens Jr., MD [facility] DR [place] [address] 09/21/2023 10:30 AM EDT Clinical Support Hematology [place] [address] Danii Her RN 09/26/2023 8:30 AM EDT Infusion Hematology Oncology at [address] [phone] 10/03/2023 9:00 AM EDT Office Visit Hematology/Oncology at [address] [phone] Adrianne Ramon MD [facility] DR [place] [address] Yael Merlos APRN [facility] DR [place] [address] 10/03/2023 9:30 AM EDT Infusion Hematology Oncology at [address] [phone] 10/10/2023 8:30 AM EDT Infusion Hematology Oncology at [address] [phone] documented as of this encounter Procedures Procedure [...] who have questions please contact the health clinical care leader that requested your imaging first. ? Electronically signed by: Rohan Henley MD, [facility] ([phone]), at 10/12/2022 3:23 PM Narrative 10/12/2022 3:23 PM EDT EXAMINATION: NM PET CT STANDARD PLUS EXTREMITIES AND HEAD CLINICAL HISTORY: Non-Hodgkin lymphoma, staging new large B cell lymphoma - involving oropharynx/ cervical. ??staging. TECHNIQUE: Procedure: Following IV injection of 41-znmrry-8-deoxyglucose (FDG) a standard uptake of approximately 60 [...] staging. TECHNIQUE: Procedure: Following IV injection of 78-yjmftv-0-deoxyglucose(FDG) a standard uptake of approximately 60 minutes, [...] patients who have questions please contactthe health clinical care leader that requested your imaging first. Adrianne Ramon [...] mCi documented in this encounter Care Teams Equipment Superintendent Relationship Specialty Start Date End Date Frederick Meade MD [address] [place] [address] [address] [facility] [address] [place] [address] PCP - General Family Medicine 11/29/17 documented as of this encounter
--- OUTSIDE RECORDS SUMMARY | 2023-09-19 02:35 | XMS_ITS | Encounter Summary ---
[place] [address] Care Team Providers Care Deputy Sheriff Generalist Name Role Phone Frederick Meade MD Primary Care Provider [phone] Encounter Details Date Type Department Care Team (Late st Contact Info) Description 10/11/2022 Notes [place] [address] James Champion, [facility] [place] [address] Social History Tobacco Use Types Packs/Day Years [...] access for chemotherapy. IR History: None at [facility]. Antiplatelets: Aspirin 81 mg daily. Anticoagulants: None. 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 Tobacco Use Smoking status: Former Packs/day: [...] AM EDT Infusion Hematology Oncology at [address] [address] 09/21/2023 9:30 AM EDT Office Visit Hematology [place] [address] Micha Givens Jr., MD [facility] DR HEMATOLOGY [place] [address] 09/21/2023 10:30 AM EDT Clinical Support Hematology [place] [address] Danii Her, RN 09/26/2023 8:30 AM EDT Infusion Hematology Oncology at [address] [phone] 10/03/2023 9:00 AM EDT Office Visit Hematology/Oncology at [address] [phone] Adrianne Ramon MD [facility] DR HEMATOLOGY [place] [address] Yael Merlos APRN [facility] DR HEMATOLOGY [place] [address] 10/03/2023 9:30 AM EDT Infusion Hematology Oncology at [address] [phone] 10/10/2023 8:30 AM EDT Infusion Hematology Oncology at [address] [phone] documented as of this encounter Visit Diagnoses Not on filedocumented in this encounter Care Teams Deputy Sheriff Generalist Relationship Specialty Start Date End Date Frederick Meade MD [address] [place] [address] [address] [place], [place] [address] PCP - General Family Medicine 11/29/17 documented as of this encounter
--- OUTSIDE RECORDS SUMMARY | 2023-09-19 02:36 | XMS_ITS | Encounter Summary ---
[place] [address] Care Team Providers Care Trimmer Sawyer Name Role Phone Bobby eHadley MD Primary Care Provider [phone] Encounter Details Date Type Department Care Team (Late st Contact Info) Description 10/21/2014 11:00 AM EDT Ancillary Appointment Radiation Oncology at [address] [phone] Nitin Stauffer MD [address] [place] [address] DR RADIATION ONCOLOGY [place], [place] [id number] Social History Tobacco Use Types Packs/Day Years [...] do to help manage the side effects. Thumb Sewer - They take the doctors radiation prescription [...] a well balanced diet is recommended. The right of way maintenance supervisor and nurse will inform you of any [...] - Sunday 8 AM to 5 PM [facility] phone# [phone] [facility] If you have questions about your radiation [...] in injury A Radiation Oncology doctor is carbon coater machine operator after our normal hours and on weekends. To call for urgent medical issues from radiation treatments that can not wait until normal business hours, please call for either location and have the plant attendant or assistant operator page the Radiation Oncologist in call. [...] of any short term side effects or jail complications of therapy. I anticipate his prescription [...] AM EDT Infusion Hematology Oncology at [address] [address] 09/21/2023 9:30 AM EDT Office Visit [place]ematology [place] [address] Micha Givens Jr., MD [facility] [address] [place] [address] 09/21/2023 10:30 AM EDT Clinical Support [place]ematology [place] [address] Danii Her RN 09/26/2023 8:30 AM EDT Infusion Hematology Oncology at [address] [address] 10/03/2023 9:00 AM EDT Office Visit Hematology/Oncology at [address] [address] Adrianne Ramon MD [facility] DR [place] [address] Yael Merlos APRN [facility] [place] [address] 10/03/2023 9:30 AM EDT Infusion Hematology Oncology at [address] [phone] 10/10/2023 8:30 AM EDT Infusion Hematology Oncology at [address] [phone] documented as of this encounter Visit Diagnoses Not on filedocumented in this encounter Care Teams Trimmer Sawyer Relationship Specialty Start Date End Date Bobby Headley MD [address] [place] [address] PCP - General 01/29/14 11/28/17 documented as of this encounter
--- OUTSIDE RECORDS SUMMARY | 2023-09-19 02:36 | XMS_ITS | Encounter Summary ---
[place] [address] Care Team Providers Care Income Auditor Name Role Phone Bobby Headley MD Primary Care Provider [phone] Reason for Visit * Reason Comments Radiation Follow-up prostate cancer Encounter Details Date Type Department Care Team (Late st Contact Info) Description 09/09/2015 10:30 AM EDT Office Visit Radiation Oncology at [address] [phone] Anna Carr [address] [place] [address] Malignant neoplasm of prostate Social [...] 5.4 Vitals Office Visit from 09/09/2015 in [facility] Radiation Oncology Weight - Scale 93.4 kg [...] elevated at 5.4 with only 9% free. Wiseman with Dr. Vergara July 2014 who offered biopsy which was performed 09/01/14, demonstrating Gleason4 + 3 disease in a single core at the right apex. Forty-five percent of that core did appear to be involved. Perineural invasion was not seen. Pathology had been reviewed here at [facility]. The patient is here today to [...] the prostate Field orientation: Dynamic arc VMAT Senior Benefits Specialist Target Coverage (70Gy isodose line indicated): [...] of education: N/A Occupational History ??? 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 Smoking [...] sporting events. He will be going to [place] in September to attend a [employer] tournament. He feels he is coping well. [...] 100 Vitals Office Visit from 09/09/2015 in [facility] Radiation Oncology Weight - Scale 93.4 kg [...] prostate cancer with pretreatment PSA of 5.4 [place] 4+3=7. He was treated with external beam [...] AM EDT Infusion Hematology Oncology at [address] [phone] 09/21/2023 9:30 AM EDT Office Visit Hematology [place] [address] Micha Givens Jr., MD [facility] DR [place] [address] 09/21/2023 10:30 AM EDT Clinical Support Hematology [place] [address] Danii Her RN 09/26/2023 8:30 AM EDT Infusion Hematology Oncology at [address] [address] 10/03/2023 9:00 AM EDT Office Visit Hematology/Oncology at [address] [address] Adrianne Ramon MD [facility] DR [place] [address] Yael Merlos APRN [facility] DR HEMATOLOGY [place] [address] 10/03/2023 9:30 AM EDT Infusion Hematology Oncology at [address] [phone] 10/10/2023 8:30 AM EDT Infusion Hematology Oncology at [address] [phone] documented as of this encounter Visit Diagnoses Diagnosis Malignant neoplasm of prostate documented in this encounter Care Teams Income Auditor Relationship Specialty Start Date End Date Bobby Headley MD [address] [place] [address] PCP - General 01/29/14 11/28/17 documented as of this encounter
--- OUTSIDE RECORDS SUMMARY | 2023-09-19 02:36 | XMS_ITS | Encounter Summary ---
[place] [address] Care Team Providers Care Wildlife Forensic Geneticist Name Role Phone Bobby Headley MD Primary Care Provider [phone] Reason for Visit * Reason Comments Radiation Follow-up prostate cancer Encounter Details Date Type Department Care Team (Late st Contact Info) Description 06/03/2015 3:15 PM EDT Office Visit Radiation Oncology at [address] [phone] Anna Carr [address] RADIATION ONCOLOGY [place], [place] [id number] Malignant neoplasm of prostate Social History Tobacco [...] encounter Progress Notes * Anna Carr [place], PARTICIPANT ADMINISTRATOR - 06/02/2015 9:56 AM EDT Images from [...] elevated at 5.4 with only 9% free. [place] with Dr. Vergara July 2014 who offered biopsy which was performed 09/01/14, demonstrating Gleason4 + 3 disease in a single core at the right apex. Forty-five percent of that core did appear to be involved. Perineural invasion was not seen. Pathology had been reviewed here at [facility]. 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 Smoking [...] sporting events. He will be going to [place] in September to attend a [employer] tournament. He feels he is coping well. [...] Negative. Vitals Office Visit from 06/03/2015 in [facility] Radiation Oncology Weight - Scale 92.08 [...] prostate cancer with pretreatment PSA of 5.4 Franklin 4+3=7. He was treated with external beam [...] AM EDT Infusion Hematology Oncology at [address] [address] 09/21/2023 9:30 AM EDT Office Visit Hematology [place] [address] Micha Givens Jr., MD [facility] [address] [place] [address] 09/21/2023 10:30 AM EDT Clinical Support [place]emat[place] [address] Danii Her RN 09/26/2023 8:30 AM EDT Infusion Hematology Oncology at [address] [phone] 10/03/2023 9:00 AM EDT Office Visit Hematology/Oncology at [address] [phone] Adrianne Ramon MD [facility] [address] [place] [address] Yael Merlos APRN [facility] [address] [place] [address] 10/03/2023 9:30 AM EDT Infusion Hematology Oncology at [address] [phone] 10/10/2023 8:30 AM EDT Infusion Hematology Oncology at [address] [phone] documented as of this encounter Visit Diagnoses Diagnosis Malignant neoplasm of prostate documented in this encounter Care Teams Wildlife Forensic Geneticist Relationship Specialty Start Date End Date Bobby Headley MD [address] [place] [address] PCP - General 01/29/14 11/28/17 documented as of this encounter
--- OUTSIDE RECORDS SUMMARY | 2023-09-19 02:36 | XMS_ITS | Encounter Summary ---
[place] [address] Care Team Providers Care Rotary Machine Operator Name Role Phone Bobby Headley MD Primary Care Provider [phone] Reason for Visit * Reason Comments Radiation Follow-up prostate cancer Encounter Details Date Type Department Care Team (Late st Contact Info) Description 02/25/2015 1:45 PM EST Office Visit Radiation Oncology at [address] [phone] Anna Carr [address] [place] [address] Malignant neoplasm of prostate Social [...] this encounter Progress Notes * Anna Carr, LOCKSTITCH FRONT EDGE TAPE SEWER - 02/24/2015 4:31 PM EST Images from [...] elevated at 5.4 with only 9% free. [place] with Dr. Vergara July 2014 who offered biopsy which was performed 09/01/14, demonstrating Gleason4 + 3 disease in a single core at the right apex. Forty-five percent of that core did appear to be involved. Perineural invasion was not seen. Pathology had been reviewed here at [facility]. 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 [...] Negative. Vitals Office Visit from 02/25/2015 in [facility] Radiation Oncology Weight - Scale 90.266 kg [...] AM EDT Infusion Hematology Oncology at [address] [address] 09/21/2023 9:30 AM EDT Office Visit [place] [address] Micha Givens Jr., MD [facility] HEMATOLOGY [place] [address] 09/21/2023 10:30 AM EDT Clinical Support [place]ematology [place] [address] Danii Her RN 09/26/2023 8:30 AM EDT Infusion Hematology Oncology at [address] [address] 10/03/2023 9:00 AM EDT Office Visit Hematology/Oncology at [address] [address] Adrianne Ramon MD [facility] DR HEMATOLOGY [place] [address] Yael Merlos APRN [facility] DR HEMATOLOGY [place] [address] 10/03/2023 9:30 AM EDT Infusion Hematology Oncology at [address] [phone] 10/10/2023 8:30 AM EDT Infusion Hematology Oncology at [address] [address] documented as of this encounter Visit Diagnoses Diagnosis Malignant neoplasm of prostate documented in this encounter Care Teams Rotary Machine Operator Relationship Specialty Start Date End Date Bobby Headley MD [address] [place] [address] PCP - General 01/29/14 11/28/17 documented as of this encounter
--- OUTSIDE RECORDS SUMMARY | 2023-09-19 02:36 | XMS_ITS | Encounter Summary ---
[place] [address] Care Team Providers Care Lace Cutter Name Role Phone Bobby Headley MD Primary Care Provider [phone] Encounter Details Date Type Department Care Team (Late Contact Info) Description 10/21/2014 Telephone Radiation Oncology at [address] [phone] Nitin Stauffer MD [address] [place] [address] RADIATION ONCOLOGY [place], [place] [id number] Social History Tobacco Use Types Packs/Day Years [...] AM EDT Infusion Hematology Oncology at [address] [phone] 09/21/2023 9:30 AM EDT Office Visit Hematology [place] [address] Micha Givens Jr., MD [facility] [address] [place] [address] 09/21/2023 10:30 AM EDT Clinical Support Hematology [place] [address] Danii Her RN 09/26/2023 8:30 AM EDT Infusion Hematology Oncology at [address] [address] 10/03/2023 9:00 AM EDT Office Visit Hematology/Oncology at [address] [phone] Adrianne Ramon MD [facility] [place] [address] Yael Merlos APRN [facility] [place] [address] 10/03/2023 9:30 AM EDT Infusion Hematology Oncology at [address] [phone] 10/10/2023 8:30 AM EDT Infusion Hematology Oncology at [address] [phone] documented as of this encounter Visit Diagnoses Not on filedocumented in this encounter Care Teams Lace Cutter Relationship Specialty Start Date End Date Bobby Headley MD [address] [place] [address] PCP - General 01/29/14 11/28/17 documented as of this encounter
--- OUTSIDE RECORDS SUMMARY | 2023-09-19 02:36 | XMS_ITS | Encounter Summary ---
[place] [address] Care Team Providers Care Newspaper Vendor Name Role Phone Bobby Headley MD Primary Care Provider [phone] Reason for Visit * Reason Comments Prostate Cancer Lupron injection Encounter Details Date Type Department Care Team (Late st Contact Info) Description 12/22/2014 8:30 AM EST Infusion Hematology Oncology at [address] [phone] Malignant neoplasm of prostate Social [...] AM EDT Infusion Hematology Oncology at [address] [address] 09/21/2023 9:30 AM EDT Office Visit Hematology [place] [address] Micha Givens Jr., MD [facility] DR [place] [address] 09/21/2023 10:30 AM EDT Clinical Support Hematology [place] [address] Danii Her RN 09/26/2023 8:30 AM EDT Infusion Hematology Oncology at [address] [address] 10/03/2023 9:00 AM EDT Office Visit Hematology/Oncology at [address] [phone] Adrianne Ramon MD [facility] DR [place] [address] Yael Merlos APRN [facility] [address] [place] [address] 10/03/2023 9:30 AM EDT Infusion Hematology Oncology at [address] [address] 10/10/2023 8:30 AM EDT Infusion Hematology Oncology at [address] [phone] documented as of this encounter Visit Diagnoses [...] Gluteal documented in this encounter Care Teams Newspaper Vendor Relationship Specialty Start Date End Date Bobby Headley MD [address] [place] [address] PCP - General 01/29/14 11/28/17 documented as of this encounter
--- OUTSIDE RECORDS SUMMARY | 2023-09-19 02:36 | XMS_ITS | Encounter Summary ---
[place] [address] Care Team Providers Care Linseed Oil Press Tender Name Role Phone Bobby Headley MD Primary Care Provider [phone] Encounter Details Date Type Department Care Team (Latest Contact Info) Description 10/19/2014 9:57 AM EDT - 10/19/2014 11:59 PM EDT Hospital [place] [phone] Nitin Stauffer MD [address] [place] [address] DR RADIATION ONCOLOGY [place], [place] [phone] Cancer of prostate with intermediate recurrence risk (stage T2b-c or Jacksonville 7 or PSA 10-20) Discharge Disposition: Home [...] AM EDT Infusion Hematology Oncology at [address] [address] 09/21/2023 9:30 AM EDT Office Visit Hematology [place] [address] Micha Givens Jr., MD [facility] DR [place] [address] 09/21/2023 10:30 AM EDT Clinical Support Hematology [place] [address] Danii Her, RN 09/26/2023 8:30 AM EDT Infusion Hematology Oncology at [address] [address] 10/03/2023 9:00 AM EDT Office Visit Hematology/Oncology at [address] [phone] Adrianne Ramon MD [facility] DR [place] [address] Yael Merlos APRN [facility] [place] [address] 10/03/2023 9:30 AM EDT Infusion Hematology Oncology at [address] [address] 10/10/2023 8:30 AM EDT Infusion Hematology Oncology at [address] [phone] documented as of this encounter Procedures Procedure Name Priority Date/Time Associated Diagnosis Comments MRI PELVIS SOFT TISSUE (GI DIRECTOR FRANCHISE SALES) WWO CONTRAST Routine 10/19/2014 11:54 AM EDT [...] 2. Staging. Date of sextant biopsy: 09/24/2014 Jacksonville score: 4+3 TECHNIQUE: Multiparametric MRI of the [...] mLs documented in this encounter Care Teams Linseed Oil Press Tender Relationship Specialty Start Date End Date Bobby Headley MD [address] [place] [address] PCP - General 01/29/14 11/28/17 documented as of this encounter
--- OUTSIDE RECORDS SUMMARY | 2023-09-19 02:36 | XMS_ITS | Encounter Summary ---
[place] [address] Care Team Providers Care Mechanical Test Engineer Name Role Phone Bobby Headley MD Primary Care Provider [phone] Encounter Details Date Type Department Care Team (Late st Contact Info) Description 12/02/2014 Notes Only Radiation Oncology at [address] [phone] Shelley Cason MSW OFFICE OF CARE MANAGEMENT [...] Resources: Pt agreeable to participate in the [place] [facility]. Provided him with a brochure and will make outreach to Arlyn Gong RN, Chronic Superintendent Schools, [facility]. Adjustment to Illness/Mental Health Issues: Pt Reports [...] AM EDT Infusion Hematology Oncology at [address] [address] 09/21/2023 9:30 AM EDT Office Visit Hematology [place] [address] Micha Givens Jr., MD [facility] [place] [address] 09/21/2023 10:30 AM EDT Clinical Support Hematology [place] [address] Danii Her RN 09/26/2023 8:30 AM EDT Infusion Hematology Oncology at [address] [phone] 10/03/2023 9:00 AM EDT Office Visit Hematology/Oncology at [address] [phone] Adrianne Ramon MD [facility] [place] [address] Yael Merlos, HEALTH CENTER MANAGER [facility] [place] [address] 10/03/2023 9:30 AM EDT Infusion Hematology Oncology at [address] [phone] 10/10/2023 8:30 AM EDT Infusion Hematology Oncology at [address] [phone] documented as of this encounter Visit Diagnoses Not on filedocumented in this encounter Care Teams Mechanical Test Engineer Relationship Specialty Start Date End Date Bobby Headley MD [address] [place] [address] PCP - General 01/29/14 11/28/17 documented as of this encounter
--- OUTSIDE RECORDS SUMMARY | 2023-09-19 02:36 | XMS_ITS | Encounter Summary ---
[place] [address] Care Team Providers Care Agricultural Appraiser Name Role Phone Frederick Meade MD Primary Care Provider [phone] Encounter Details Date Type Department Care Team (Late st Contact Info) Description 10/10/2022 Telephone Hematology [place] [phone] [facility] HEMATOLOGY/[place] [address] Social History Tobacco Use Types Packs/Day Years [...] phone call from Dr. Jain (office number [phone]) at [facility] office to discuss below. 72 yo male is seen by DR. Jain for enlarging neck masses. 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 FISH is pending. Since he was worked up in [facility], the results are in [facility] system. Due to the airway concern, pt was started on prednisone last week. Dr. Jain reached out to me to see how quickly otr company driver at [facility] can see him. I discussed this case with Dr. Tolliver and soon after that I was told that [facility], which will be the best plan. Dr. Jain was updated about this plan by the hematology clinic. Castro Jimenez MD [facility] Hematology Oncology Fellow Page [phone] documented in this encounter Plan of Treatment Upcoming Encounters Date Type Department Care Team (Late st Contact Info) Description 09/19/2023 8:00 AM EDT Infusion Hematology Oncology at [address] [phone] 09/21/2023 9:30 AM EDT Office Visit Hematology [place] [address] Micha Givens Jr., MD [facility] DR [place] [address] 09/21/2023 10:30 AM EDT Clinical Support Hematology [place] [address] Danii Her RN 09/26/2023 8:30 AM EDT Infusion Hematology Oncology at [address] [address] 10/03/2023 9:00 AM EDT Office Visit Hematology/Oncology at [address] [phone] [facility] DR [place] [address] Yael Merlos, KARLA [facility] DR [place] [address] 10/03/2023 9:30 AM EDT Infusion Hematology Oncology at [address] [address] 10/10/2023 8:30 AM EDT Infusion Hematology Oncology at [address] [address] documented as of this encounter Visit Diagnoses Not on filedocumented in this encounter Care Teams Agricultural Appraiser Relationship Specialty Start Date End Date Frederick Meade MD [address] [place] [address] [address] [place] [address] PCP - General Family Medicine 11/29/17 documented as of this encounter
--- OUTSIDE RECORDS SUMMARY | 2023-09-19 02:36 | XMS_ITS | Encounter Summary ---
Author Organization [facility] [address] Care Team Providers Care Hurl Shaker Name Role Phone Bobby Headley MD Primary Care Provider [phone] Encounter Details Date Type Department Care Team (Late st Contact Info) Description 03/01/2016 11:00 AM EST Office Visit Hematology/Oncology at [address] [phone] Annika Quezada APRN [facility] [place] [address] Prostate cancer Social History Tobacco Use Types [...] elevated at 5.4 with only 9% free. [place] with Dr. Vergara July 2014 who offered biopsy which was performed 09/01/14, demonstrating Gleason4 + 3 disease in a single core at the right apex. Forty-five percent of that core did appear to be involved. Perineural invasion was not seen. Pathology had been reviewed here at [facility]. 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 Smoking [...] to their sporting events. He went to [place] in September to attend a [employer] tournament and had a great time. He [...] prostate cancer with pretreatment PSA of 5.4 Waldorf 4+3=7. He was treated with external beam [...] AM EDT Infusion Hematology Oncology at [address] [address] 09/21/2023 9:30 AM EDT Office Visit Hematology [place] [address] Micha Givens Jr., MD [facility] DR HEMATOLOGY [place] [address] 09/21/2023 10:30 AM EDT Clinical Support Hematology [place] [address] Danii Her RN 09/26/2023 8:30 AM EDT Infusion Hematology Oncology at [address] [address] 10/03/2023 9:00 AM EDT Office Visit Hematology/Oncology at [address] [address] Adrianne Ramon MD [facility] DR HEMATOLOGY [place] [address] Yael Merlos APRN [facility] HEMATOLOGY [place] [address] 10/03/2023 9:30 AM EDT Infusion Hematology Oncology at [address] [phone] 10/10/2023 8:30 AM EDT Infusion Hematology Oncology at [address] [phone] documented as of this encounter Visit Diagnoses Diagnosis Prostate cancer Malignant neoplasm of prostate documented in this encounter Care Teams Hurl Shaker Relationship Specialty Start Date End Date Bobby Headley MD [address] [place] [address] PCP - General 01/29/14 11/28/17 documented as of this encounter
--- OUTSIDE RECORDS SUMMARY | 2023-09-19 02:36 | XMS_ITS | Encounter Summary ---
[place] [address] Care Team Providers Care Management Trainee Program Stores Name Role Phone Bobby Headley MD Primary Care Provider [phone] Encounter Details Date Type Department Care Team (Late st Contact Info) Description 02/01/2015 Notes Only Radiation Oncology at [address] [phone] Nitin Stauffer MD [address] [place] [address] DR RADIATION ONCOLOGY [place], [place] [phone] Social History Tobacco Use Types Packs/Day Years [...] his prostate and proximal SV at the [facility] in [place], [place]. Details of his radiation treatment course are as below. RT information: Date of RT Start: 11/25/14 Date of RT Completion: 01/26/15 Dose and targets: 70.2 Gy to the proximal SV and prostate, 79.2Gy to the prostate Field orientation: Dynamic arc VMAT Char Filter Operator Helper Target Coverage (70Gy isodose line indicated): SPECIAL [...] AM EDT Infusion Hematology Oncology at [address] [address] 09/21/2023 9:30 AM EDT Office Visit Hematology [place] [address] Micha Givens Jr., MD [facility] DR [place] [address] 09/21/2023 10:30 AM EDT Clinical Support Hematology [place] [address] Danii Her RN 09/26/2023 8:30 AM EDT Infusion Hematology Oncology at [address] [address] 10/03/2023 9:00 AM EDT Office Visit Hematology/Oncology at [address] [address] Adrianne Ramon MD [facility] DR [place] [address] Yael Merlos APRN [facility] [place] [address] 10/03/2023 9:30 AM EDT Infusion Hematology Oncology at [address] [address] 10/10/2023 8:30 AM EDT Infusion Hematology Oncology at [address] [phone] documented as of this encounter Visit Diagnoses Not on filedocumented in this encounter Care Teams Management Trainee Program Stores Relationship Specialty Start Date End Date Bobby Headley MD [address] [place] [address] PCP - General 01/29/14 11/28/17 documented as of this encounter
--- OUTSIDE RECORDS SUMMARY | 2023-09-19 02:36 | XMS_ITS | Encounter Summary ---
[place] [address] Care Team Providers Care Teletype Technician Name Role Phone Bobby Headley MD Primary Care Provider [phone] Encounter Details Date Type Department Care Team (Latest Contact Info) Description 01/04/2015 Unscheduled Encounter Radiation Oncology at [address] [phone] Lidia Reno, RN Malignant neoplasm of prostate [...] AM EDT Infusion Hematology Oncology at [address] [address] 09/21/2023 9:30 AM EDT Office Visit Hematology [place] [address] Micha Givens Jr., MD [facility] DR [place] [address] 09/21/2023 10:30 AM EDT Clinical Support Hematology [place] [address] Danii Her RN 09/26/2023 8:30 AM EDT Infusion Hematology Oncology at [address] [address] 10/03/2023 9:00 AM EDT Office Visit Hematology/Oncology at [address] [address] Adrianne Ramon MD [facility] [place] [address] Yael Merlos APRN [facility] [place] [address] 10/03/2023 9:30 AM EDT Infusion Hematology Oncology at [address] [address] 10/10/2023 8:30 AM EDT Infusion Hematology Oncology at [address] [address] documented as of this encounter Visit Diagnoses Diagnosis Malignant neoplasm of prostate documented in this encounter Care Teams Teletype Technician Relationship Specialty Start Date End Date Bobby Headley MD [address] [place] [address] PCP - General 01/29/14 11/28/17 documented as of this encounter
--- OUTSIDE RECORDS SUMMARY | 2023-09-19 02:36 | XMS_ITS | Encounter Summary ---
Author Organization [facility] [place] [address] Care Team Providers Care Product Merchandiser Name Role Phone Bobby Headley MD Primary Care Provider [phone] Encounter Details Date Type Department Care Team (Late st Contact Info) Description 12/01/2015 10:15 AM EDT Office Visit Hematology/Oncology at [address] [address] Annika Quezada APRN [facility] [place] [address] Prostate cancer Social History Tobacco Use Types [...] prostate cancer with pretreatment PSA of 5.4 [place] 4+3=7. He was treated with external beam [...] elevated at 5.4 with only 9% free. [place] with Dr. Vergara July 2014 who offered biopsy which was performed 09/01/14, demonstrating Gleason4 + 3 disease in a single core at the right apex. Forty-five percent of that core did appear to be involved. Perineural invasion was not seen. Pathology had been reviewed here at [facility]. 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 [...] to their sporting events. He went to [place] in September to attend a [employer] tournament and had a great time. He [...] prostate cancer with pretreatment PSA of 5.4 [place] 4+3=7. He was treated with external beam [...] AM EDT Infusion Hematology Oncology at [address] [phone] 09/21/2023 9:30 AM EDT Office Visit Hematology [place] [address] Micha Givens Jr., MD [facility] DR [place] [address] 09/21/2023 10:30 AM EDT Clinical Support [place]ematology [place] [address] Danii Her RN 09/26/2023 8:30 AM EDT Infusion Hematology Oncology at [address] [phone] 10/03/2023 9:00 AM EDT Office Visit Hematology/Oncology at [address] [phone] Adrianne Ramon MD [facility] [place] [address] Yael Merlos APRN [facility] [place] [address] 10/03/2023 9:30 AM EDT Infusion Hematology Oncology at [address] [address] 10/10/2023 8:30 AM EDT Infusion Hematology Oncology at [address] [phone] documented as of this encounter Visit Diagnoses Diagnosis Prostate cancer Malignant neoplasm of prostate documented in this encounter Care Teams Product Merchandiser Relationship Specialty Start Date End Date Bobby Headley MD [address] [place] [address] PCP - General 01/29/14 11/28/17 documented as of this encounter
--- OUTSIDE RECORDS SUMMARY | 2023-09-19 02:36 | XMS_ITS | Encounter Summary ---
[place] [address] Care Team Providers Care Veneer Jointer Returner Name Role Phone Bobby Headley MD Primary Care Provider [phone] Encounter Details Date Type Department Care Team (Late st Contact Info) Description 12/24/2014 8:15 AM EST Office Visit Radiation Oncology at [address] [address] Nitin Stauffer MD [address] [place] [address] DR RADIATION ONCOLOGY [place], [place] [id number] Cancer of prostate with intermediate recurrence risk (stage T2b-c or [place] 7 or PSA 10-20) Social History Tobacco [...] Uncontrollable bleeding A Radiation Oncology doctor is flatwork ironer after our normal hours and on weekends. To call for urgent medical issues from radiation treatments that can not wait until normal business hours, please call and have the reel and rewinder operator page the Radiation Oncologist flatwork ironer. Nitin Ramirez MD documented in this encounter Progress Notes * Nitin Stauffer MD - 12/24/2014 8:16 AM EST [facility] On Treatment Visit Patient ID: Cheo [...] AM EDT Infusion Hematology Oncology at [address] [address] 09/21/2023 9:30 AM EDT Office Visit Hematology [place] [address] Micha Givens Jr., MD [facility] DR [place] [address] 09/21/2023 10:30 AM EDT Clinical Support [place]ematology [place] [address] Danii Her RN 09/26/2023 8:30 AM EDT Infusion Hematology Oncology at [address] [address] 10/03/2023 9:00 AM EDT Office Visit Hematology/Oncology at [address] [phone] Adrianne Ramon MD [facility] DR [place] [address] Yael Merlos APRN [facility] [place] [address] 10/03/2023 9:30 AM EDT Infusion Hematology Oncology at [address] [phone] 10/10/2023 8:30 AM EDT Infusion Hematology Oncology at [address] [phone] documented as of this encounter Visit Diagnoses Diagnosis Cancer of prostate with intermediate recurrence risk (stage T2b-c or [place] 7 or PSA 10-20) Malignant neoplasm of prostate documented in this encounter Care Teams Veneer Jointer Returner Relationship Specialty Start Date End Date Bobby Headley MD [address] [place] [address] PCP - General 01/29/14 11/28/17 documented as of this encounter
--- OUTSIDE RECORDS SUMMARY | 2023-09-19 02:36 | XMS_ITS | Encounter Summary ---
[place] [address] Care Team Providers Care Back Up Scan Coordinator Name Role Phone Frederick Meade MD Primary Care Provider [phone] Encounter Details Date Type Department Care Team (Late st Contact Info) Description 03/17/2019 10:00 AM EST Office Visit Radiation Oncology at [address] [phone] Nitin Stauffer MD [address] [place] [address] DR RADIATION ONCOLOGY [place], [place] [id number] Malignant neoplasm of prostate Social History Tobacco [...] 03/17/19 Nitin Stauffer MD, MS Radiation Oncology [facility] [phone] (paging non licensed nuclear equipment operator) Pager #[phone] Patient ID: Cheo Freire is a 64 [...] totally confined to bed or chair IMPRESSION/PLAN FDC effects from radiotherapy: Biochemically and clinically DAVE. No significant intermodal truck driver adverse effects from RT/ADT. Followup: Given persistently [...] minute visit was spent with the patient [id number] reviewing his interval medical history and answering questions related to his prostate cancer. documented in this encounter Plan of Treatment Upcoming Encounters Date Type Department Care Team (Late st Contact Info) Description 09/19/2023 8:00 AM EDT Infusion Hematology Oncology at [address] [phone] 09/21/2023 9:30 AM EDT Office Visit Hematology [place] [address] Micha Givens Jr., MD [facility] DR [place] [address] 09/21/2023 10:30 AM EDT Clinical Support Hematology [place] [address] Danii Her RN 09/26/2023 8:30 AM EDT Infusion Hematology Oncology at [address] [phone] 10/03/2023 9:00 AM EDT Office Visit Hematology/Oncology at [address] [phone] Adrianne Ramon MD [facility] DR [place] [address] Yael Merlos APRN [facility] DR [place] [address] 10/03/2023 9:30 AM EDT Infusion Hematology Oncology at [address] [address] 10/10/2023 8:30 AM EDT Infusion Hematology Oncology at [address] [phone] documented as of this encounter Visit Diagnoses Diagnosis Malignant neoplasm of prostate documented in this encounter Care Teams Back Up Scan Coordinator Relationship Specialty Start Date End Date Meade, Frederick J, MD [address] [place] [address] PCP - General Family Medicine 11/29/17 documented as of this encounter
--- OUTSIDE RECORDS SUMMARY | 2023-09-19 02:36 | XMS_ITS | Encounter Summary ---
[place] [address] Care Team Providers Care Customer Business Manager Name Role Phone Bobby Headley MD Primary Care Provider [phone] Reason for Visit * Reason Comments On Treatment Visit Encounter Details Date Type Department Care Team (Late st Contact Info) Description 01/19/2015 8:00 AM EST Office Visit Radiation Oncology at [address] [phone] Nitin Stauffer MD [address] [place] [address] [place] [address] Cancer of prostate with intermediate recurrence risk (stage T2b-c or [place] 7 or PSA 10-20) Social History Tobacco [...] Uncontrollable bleeding A Radiation Oncology doctor is decorating consultant after our normal hours and on weekends. To call for urgent medical issues from radiation treatments that can not wait until normal business hours, please call and have the assistant operator page the Radiation Oncologist decorating consultant. Nitin Ramirez. MD Eh documented in this encounter Progress Notes * Nitin Stauffer MD - 01/19/2015 8:11 AM EST [facility] On Treatment Visit Patient ID: [...] AM EDT Infusion Hematology Oncology at [address] [address] 09/21/2023 9:30 AM EDT Office Visit Hematology [place] [phone] Micha Givens Jr., MD [facility] DR [place] [address] 09/21/2023 10:30 AM EDT Clinical Support Hematology [place] [address] Danii Her RN 09/26/2023 8:30 AM EDT Infusion Hematology Oncology at [address] [address] 10/03/2023 9:00 AM EDT Office Visit Hematology/Oncology at [address] [phone] Adrianne Ramon MD [facility] [place] [address] Yael Merlos APRN [facility] [place] [address] 10/03/2023 9:30 AM EDT Infusion Hematology Oncology at [address] [address] 10/10/2023 8:30 AM EDT Infusion Hematology Oncology at [address] [phone] documented as of this encounter Visit Diagnoses Diagnosis Cancer of prostate with intermediate recurrence risk (stage T2b-c or [place] 7 or PSA 10-20) Malignant neoplasm of prostate documented in this encounter Care Teams Customer Business Manager Relationship Specialty Start Date End Date Bobby Headley MD [address] [place] [address] PCP - General 01/29/14 11/28/17 documented as of this encounter
--- OUTSIDE RECORDS SUMMARY | 2023-09-19 02:36 | XMS_ITS | Encounter Summary ---
[place] [address] Care Team Providers Care Hard Metals Engraver Hand Name Role Phone Bobby Headley MD Primary Care Provider [phone] Encounter Details Date Type Department Care Team (Late st Contact Info) Description 11/21/2017 Orders Only Radiation Oncology at [address] [phone] Lidia Reno RN Malignant neoplasm of prostate [...] AM EDT Infusion Hematology Oncology at [address] [address] 09/21/2023 9:30 AM EDT Office Visit Hematology [place] [address] Micha Givens Jr., MD [facility] DR HEMATOLOGY [place] [address] 09/21/2023 10:30 AM EDT Clinical Support Hematology [place] [address] Danii Her, RN 09/26/2023 8:30 AM EDT Infusion Hematology Oncology at [address] [phone] 10/03/2023 9:00 AM EDT Office Visit Hematology/Oncology at [address] [phone] Adrianne Ramon MD [facility] DR HEMATOLOGY [place] [address] Yael Merlos, KARLA [facility] DR HEMATOLOGY [place] [address] 10/03/2023 9:30 AM EDT Infusion Hematology Oncology at [address] [phone] 10/10/2023 8:30 AM EDT Infusion Hematology Oncology at [address] [phone] documented as of this encounter Visit Diagnoses Diagnosis Malignant neoplasm of prostate documented in this encounter Care Teams Hard Metals Engraver Hand Relationship Specialty Start Date End Date Bobby Headley MD [address] [place] [address] PCP - General 01/29/14 11/28/17 documented as of this encounter
--- OUTSIDE RECORDS SUMMARY | 2023-09-19 02:36 | XMS_ITS | Encounter Summary ---
[place] [address] Care Team Providers Care In Home Sales Representative Name Role Phone Bobby Headley MD Primary Care Provider [phone] Encounter Details Date Type Department Care Team (Late st Contact Info) Description 12/14/2016 3:45 PM EDT Office Visit Hematology/Oncology at [address] [place] [address] [phone] Nancy Stratton, SHEAR GRINDER OPERATOR [address] [facility] [place] [address] Malignant neoplasm of prostate Social History Tobacco [...] this encounter Progress Notes * Nancy Stratton, SHEAR GRINDER OPERATOR - 12/14/2016 3:45 PM EDT Images from the original note were not included. Patient ID: Cheo Freire is a 66 y.o. male with intermediate risk prostate cancer with pretreatment PSA of 5.4 [place] 4+3=7. He was treated with external beam [...] seen. Pathology had been reviewed here at [facility]. 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 Smoking [...] to their sporting events. He went to [place] last September to attend a [employer] andhad a great time. He feels he [...] prostate cancer with pretreatment PSA of 5.4 [place] 4+3=7. He was treated with external beam [...] concerns in the interim. Nancy Stratton, MSN, FIELD OPERATIONS FARM MANAGER, AOCN Hematology/Oncology Nurse Practitioner [place], [place] [phone] . documented in this encounter Plan of Treatment Upcoming Encounters Date Type Department Care Team (Late st Contact Info) Description 09/19/2023 8:00 AM EDT Infusion Hematology Oncology at [address] [address] 09/21/2023 9:30 AM EDT Office Visit Hematology [place] [address] Micha Givens Jr., MD [facility] DR HEMATOLOGY [place] [address] 09/21/2023 10:30 AM EDT Clinical Support Hematology [place] [address] Danii Her RN 09/26/2023 8:30 AM EDT Infusion Hematology Oncology at [address] [address] 10/03/2023 9:00 AM EDT Office Visit Hematology/Oncology at [address] [address] Adrianne Ramon MD [facility] DR HEMATOLOGY [place] [address] Yael Merlos APRN [facility] HEMATOLOGY [place] [address] 10/03/2023 9:30 AM EDT Infusion Hematology Oncology at [address] [phone] 10/10/2023 8:30 AM EDT Infusion Hematology Oncology at [address] [phone] documented as of this encounter Visit Diagnoses Diagnosis Malignant neoplasm of prostate documented in this encounter Care Teams In Home Sales Representative Relationship Specialty Start Date End Date Bobby Headley MD [address] [place] [address] PCP - General 01/29/14 11/28/17 documented as of this encounter
--- OUTSIDE RECORDS SUMMARY | 2023-09-19 02:36 | XMS_ITS | Encounter Summary ---
[place] [address] Care Team Providers Care Natural Resources Instructor Name Role Phone Frederick Meade MD Primary Care Provider [phone] Encounter Details Date Type Department Care Team (Late st Contact Info) Description 09/21/2022 Notes Only Otolaryngology [place] [address] Karly Jacobs MD [facility] [place] [address] Social History Tobacco Use Types Packs/Day Years [...] by Transfer Center by Dr. Lucero at [facility] on 09/21/22 regarding Cheo Freire. Cheo Freire is a 72 y.o. male with PMH T2DM (diet controlled), HTN (lisinopril), prostate Ca (diagnosed 2014, no treatment), tobacco use history (quit 1984), prior chewing tobacco use history, very occasional alcohol who presented to [facility] with 1 wk throat swelling and facial [...] ENT, Dr. Ramírez, who is apparently in [place], but suggested this may represent angioedema vs [...] for scope exam to evaluate further. Unfortunately, [facility] had no availability to transfer patient at [...] Jacobs MD, PGY3 09/21/2022 11:33 PM Pager #[phone] documented in this encounter Plan of Treatment Upcoming Encounters Date Type Department Care Team (Late st Contact Info) Description 09/19/2023 8:00 AM EDT Infusion Hematology Oncology at [address] [address] 09/21/2023 9:30 AM EDT Office Visit Hematology and [place]cology [place] [address] Micha Givens Jr., MD [facility] DR HEMATOLOGY [place] [address] 09/21/2023 10:30 AM EDT Clinical Support Hematology and [place]cology [place] [address] Danii Her RN 09/26/2023 8:30 AM EDT Infusion Hematology Oncology at [address] [address] 10/03/2023 9:00 AM EDT Office Visit Hematology/Oncology at [address] [address] Adrianne Ramon MD [facility] HEMATOLOGY [place] [address] Yael Merlos APRN [facility] HEMATOLOGY [place] [address] 10/03/2023 9:30 AM EDT Infusion Hematology Oncology at [address] [phone] 10/10/2023 8:30 AM EDT Infusion Hematology Oncology at [address] [phone] documented as of this encounter Results * [...] have questions please contact the health healthcare business analyst that requested your imaging first. ? Electronically signed by: Kervin Lam MD, [facility] ([phone]), at 09/22/2022 3:13 PM Narrative 09/22/2022 3:13 PM EDT EXAMINATION: REQUEST FOR 2ND READ CT NECK CLINICAL HISTORY: Nasopharyngeal fluid collection vs infected node, retropharyngeal adenopathy, BOT fullness, RIGHT thyroid lesion; Sending Institution [facility]; Date of exam 09/21/2022; I believe a [...] BOT fullness, RIGHT thyroid lesion; Sending Institution [facility]; Date of exam 09/21/2022; I believe a [...] who have questions please contactthe health healthcare business analyst that requested your imaging first. 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
--- OUTSIDE RECORDS SUMMARY | 2023-09-19 02:36 | XMS_ITS | Encounter Summary ---
[place] [address] Care Team Providers Care Training Technician Name Role Phone Bobby Headley MD Primary Care Provider [phone] Encounter Details Date Type Department Care Team (Late st Contact Info) Description 12/31/2014 8:00 AM EST Office Visit Radiation Oncology at [address] [phone] Nitin Stauffer MD [address] [place] [address] DR RADIATION ONCOLOGY [place], [place] [id number] Cancer of prostate with intermediate recurrence risk (stage T2b-c or [place] 7 or PSA 10-20) Social History Tobacco [...] Uncontrollable bleeding A Radiation Oncology doctor is production trainer after our normal hours and on weekends. To call for urgent medical issues from radiation treatments that can not wait until normal business hours, please call and have the plastic extrusion operator page the Radiation Oncologist production trainer. Nitin Ramirez MD documented in this encounter Progress Notes * Nitin Stauffer MD - 12/31/2014 8:07 AM EST [facility] [...] AM EDT Infusion Hematology Oncology at [address] [address] 09/21/2023 9:30 AM EDT Office Visit Hematology [place] [address] Micha Givens Jr., MD [facility] [place]AT[place] [address] 09/21/2023 10:30 AM EDT Clinical Support Hematology [place] [address] Danii Her RN 09/26/2023 8:30 AM EDT Infusion Hematology Oncology at [address] [address] 10/03/2023 9:00 AM EDT Office Visit Hematology/Oncology at [address] [address] Adrianne Ramon MD [facility] DR HEMAT[place] [address] Yael Merlos APRN [facility] [place] [address] 10/03/2023 9:30 AM EDT Infusion Hematology Oncology at [address] [address] 10/10/2023 8:30 AM EDT Infusion Hematology Oncology at [address] [phone] documented as of this encounter Visit Diagnoses Diagnosis Cancer of prostate with intermediate recurrence risk (stage T2b-c or [place] 7 or PSA 10-20) Malignant neoplasm of prostate documented in this encounter Care Teams Training Technician Relationship Specialty Start Date End Date Bobby Headley MD [address] [place] [address] PCP - General 01/29/14 11/28/17 documented as of this encounter
--- OUTSIDE RECORDS SUMMARY | 2023-09-19 02:36 | XMS_ITS | Encounter Summary ---
Author Organization [facility] [place] [address] Care Team Providers Care Auto Collision Repair Instructor Name Role Phone Frederick Meade MD Primary Care Provider [phone] Encounter Details Date Type Department Care Team (Late Contact Info) Description 09/21/2022 10:05 PM EDT Ancillary Procedure [place] [phone] Thierry Ruiz MD [facility] [place] [address] Social History Tobacco Use Types Packs/Day Years [...] AM EDT Infusion Hematology Oncology at [address] [phone] 09/21/2023 9:30 AM EDT Office Visit Hematology [place] [phone] Micha Givens Jr., MD [facility] DR HEMATOLOG[place] [address] 09/21/2023 10:30 AM EDT Clinical Support Hematology [place] [address] Danii Her RN 09/26/2023 8:30 AM EDT Infusion Hematology Oncology at [address] [phone] 10/03/2023 9:00 AM EDT Office Visit Hematology/Oncology at [address] [address] Adrianne Ramon MD [facility] DR HEMAT[place] [address] Yael Merlos APRN [facility] [place] [address] 10/03/2023 9:30 AM EDT Infusion Hematology Oncology at [address] [phone] 10/10/2023 8:30 AM EDT Infusion Hematology Oncology at [address] [phone] documented as of this encounter Procedures Procedure [...] Ruiz MD IMG FILM LIBRARY ORD ERABLES [place], [place] documented in this encounter Visit Diagnoses Not on filedocumented in this encounter Care Teams Auto Collision Repair Instructor Relationship Specialty Start Date End Date Frederick Meade MD [address] [place] [address] PCP - General Family Medicine 11/29/17 documented as of this encounter
--- OUTSIDE RECORDS SUMMARY | 2023-09-19 02:36 | XMS_ITS | Encounter Summary ---
Author Organization [facility] [place] [address] Care Team Providers Care Director Of Claims Name Role Phone Frederick Meade MD Primary Care Provider [phone] Encounter Details Date Type Department Care Team (Late st Contact Info) Description 10/10/2022 Orders Only Hematology [place] [address] Adrianne Ramon MD [facility] DR [place] [address] Non-Hodgkin lymphoma of lymph nodes of multiple [...] AM EDT Infusion Hematology Oncology at [address] [address] 09/21/2023 9:30 AM EDT Office Visit Hematology [place] [address] Micha Givens Jr., MD [facility] DR H[place] [address] 09/21/2023 10:30 AM EDT Clinical Support Hematology [place] [address] Danii Her RN 09/26/2023 8:30 AM EDT Infusion Hematology Oncology at [address] [address] 10/03/2023 9:00 AM EDT Office Visit Hematology/Oncology at [address] [address] Adrianne Ramon MD [facility] DR [place] [address] Yael Merlos, KARLA [facility] DR [place] [address] 10/03/2023 9:30 AM EDT Infusion Hematology Oncology at [address] [phone] 10/10/2023 8:30 AM EDT Infusion Hematology Oncology at [address] [phone] documented as of this encounter Visit Diagnoses Diagnosis Non-Hodgkin lymphoma of lymph nodes of multiple regions, unspecified non-Hodgkin lymphoma type documented in this encounter Care Teams Director Of Claims Relationship Specialty Start Date End Date Frederick Meade MD [address] [place] [address] PCP - General Family Medicine 11/29/17 documented as of this encounter
--- OUTSIDE RECORDS SUMMARY | 2023-09-19 02:36 | XMS_ITS | Encounter Summary ---
[place] [address] Care Team Providers Care Fish House Worker Name Role Phone Bobby Headley MD Primary Care Provider [phone] Encounter Details Date Type Department Care Team (Late st Contact Info) Description 10/15/2014 Telephone Radiation Oncology at [address] [address] Christine Garcia RN Social History [...] Post-Procedure Phone Note Name: Cheo Freire A#: [id number] : 1950 Date/Time of Call: 10/15/2014 6:10 [...] YES NO x Comments/interventions: Section Radiation Oncology [facility] documented in this encounter Plan of Treatment Upcoming Encounters Date Type Department Care Team (Late st Contact Info) Description 09/19/2023 8:00 AM EDT Infusion Hematology Oncology at [address] [address] 09/21/2023 9:30 AM EDT Office Visit [place]emat[place] [address] Micha Givens Jr., MD [facility] DR [place]EMAT[place] [address] 09/21/2023 10:30 AM EDT Clinical Support [place]emat[place] [address] Danii Her RN 09/26/2023 8:30 AM EDT Infusion Hematology Oncology at [address] [address] 10/03/2023 9:00 AM EDT Office Visit Hematology/Oncology at [address] [address] Adrianne Ramon MD [facility] DR [place] [address] Yael Merlos, EVENTS TRAFFIC CONTROLLER [facility] [place] [address] 10/03/2023 9:30 AM EDT Infusion Hematology Oncology at [address] [address] 10/10/2023 8:30 AM EDT Infusion Hematology Oncology at [address] [address] documented as of this encounter Visit Diagnoses Not on filedocumented in this encounter Care Teams Fish House Worker Relationship Specialty Start Date End Date Bobby Headley MD [address] [place] [address] PCP - General 01/29/14 11/28/17 documented as of this encounter
--- OUTSIDE RECORDS SUMMARY | 2023-09-19 02:36 | XMS_ITS | Encounter Summary ---
[place] [address] Care Team Providers Care Portable Machine Sander Name Role Phone Bobby Headley MD Primary Care Provider [phone] Encounter Details Date Type Department Care Team (Late Contact Info) Description 10/21/2014 Orders Only Radiation Oncology at [address] [phone] Nitin Stauffer MD [address] [place] [address] DR RADIATION ONCOLOGY [place], [place] [id number] Social History Tobacco Use Types Packs/Day Years [...] AM EDT Infusion Hematology Oncology at [address] [phone] 09/21/2023 9:30 AM EDT Office Visit Hematology [place] [address] Micha Givens Jr., MD [facility] DR [place] [address] 09/21/2023 10:30 AM EDT Clinical Support Hematology [place] [address] Danii Her RN 09/26/2023 8:30 AM EDT Infusion Hematology Oncology at [address] [phone] 10/03/2023 9:00 AM EDT Office Visit Hematology/Oncology at [address] [phone] Adrianne Ramon MD [facility] DR [place] [address] Yael Merlos APRN [facility] DR [place] [address] 10/03/2023 9:30 AM EDT Infusion Hematology Oncology at [address] [phone] 10/10/2023 8:30 AM EDT Infusion Hematology Oncology at [address] [phone] documented as of this encounter Procedures Procedure [...] is a Non-reportable exam Nitin Stauffer MD [facility] FILM LIBRARY ORD ERABLES documented in this encounter Visit Diagnoses Not on filedocumented in this encounter Care Teams Portable Machine Sander Relationship Specialty Start Date End Date Bobby Headley MD [address] [place] [address] PCP - General 01/29/14 11/28/17 documented as of this encounter
--- OUTSIDE RECORDS SUMMARY | 2023-09-19 02:36 | XMS_ITS | Encounter Summary ---
[place] [address] Care Team Providers Care Coke Loader Name Role Phone Bobby Headley MD Primary Care Provider [phone] Encounter Details Date Type Department Care Team (Late st Contact Info) Description 12/17/2014 8:15 AM EDT Office Visit Radiation Oncology at [address] [phone] Nitin Stauffer MD [address] [place] [address] DR RADIATION ONCOLOGY [place], [place] [id number] Cancer of prostate with intermediate recurrence risk (stage T2b-c or [place] 7 or PSA 10-20) Social History Tobacco [...] Uncontrollable bleeding A Radiation Oncology doctor is precision machinist after our normal hours and on weekends. To call for urgent medical issues from radiation treatments that can not wait until normal business hours, please call and have the plycor operator page the Radiation Oncologist precision machinist. Nitin Ramirez MD documented in this encounter Progress Notes * Nitin Stauffer MD - 12/17/2014 8:[address] [facility] On Treatment Visit Patient ID: Cheo Freire [...] AM EDT Infusion Hematology Oncology at [address] [address] 09/21/2023 9:30 AM EDT Office Visit Hematology [place] [address] Micha Givens Jr., MD [facility] DR HEMAT[place] [address] 09/21/2023 10:30 AM EDT Clinical Support Hematology [place] [address] Danii Her RN 09/26/2023 8:30 AM EDT Infusion Hematology Oncology at [address] [address] 10/03/2023 9:00 AM EDT Office Visit Hematology/Oncology at [address] [address] Adrianne Ramon MD [facility] DR HEMATOLOG[place] [address] Yael Merlos APRN [facility] [place] [address] 10/03/2023 9:30 AM EDT Infusion Hematology Oncology at [address] [phone] 10/10/2023 8:30 AM EDT Infusion Hematology Oncology at [address] [phone] documented as of this encounter Visit Diagnoses Diagnosis Cancer of prostate with intermediate recurrence risk (stage T2b-c or [place] 7 or PSA 10-20) Malignant neoplasm of prostate documented in this encounter Care Teams Coke Loader Relationship Specialty Start Date End Date Bobby Headley MD [address] [place] [address] PCP - General 01/29/14 11/28/17 documented as of this encounter
--- OUTSIDE RECORDS SUMMARY | 2023-09-19 02:36 | XMS_ITS | Encounter Summary ---
[place] [address] Care Team Providers Care Radiotelegrapher Name Role Phone Bobby Headley MD Primary Care Provider [phone] Encounter Details Date Type Department Care Team (Late st Contact Info) Description 01/07/2015 8:00 AM EST Office Visit Radiation Oncology at [address] [phone] Nitin Stauffer MD [address] [place] [address] DR RADIATION ONCOLOGY [place], [place] [id number] Malignant neoplasm of prostate Social History Tobacco [...] Uncontrollable bleeding A Radiation Oncology doctor is weapons electrical engineering officer after our normal hours and on weekends. To call for urgent medical issues from radiation treatments that can not wait until normal business hours, please call and have the color printer operator page the Radiation Oncologist weapons electrical engineering officer. Nitin Ramirez MD documented in this encounter Progress Notes * Nitin Stauffer MD - 01/07/2015 8:02 AM EST [facility] [...] AM EDT Infusion Hematology Oncology at [address] [address] 09/21/2023 9:30 AM EDT Office Visit [place]ematology [place] [address] Micha Givens Jr., MD [facility] DR [place]EMAT[place] [address] 09/21/2023 10:30 AM EDT Clinical Support [place]ematology [place] [address] Danii Her RN 09/26/2023 8:30 AM EDT Infusion Hematology Oncology at [address] [address] 10/03/2023 9:00 AM EDT Office Visit Hematology/Oncology at [address] [address] Adrianne Ramon MD [facility] DR [place]AT[place] [address] Yael Merlos APRN [facility] [place] [address] 10/03/2023 9:30 AM EDT Infusion Hematology Oncology at [address] [address] 10/10/2023 8:30 AM EDT Infusion Hematology Oncology at [address] [phone] documented as of this encounter Visit Diagnoses Diagnosis Malignant neoplasm of prostate documented in this encounter Care Teams Radiotelegrapher Relationship Specialty Start Date End Date Bobby Headley MD [address] [place] [address] PCP - General 01/29/14 11/28/17 documented as of this encounter
--- OUTSIDE RECORDS SUMMARY | 2023-09-19 02:36 | XMS_ITS | Encounter Summary ---
[place] [address] Care Team Providers Care Field Checker Name Role Phone Frederick Meade MD Primary Care Provider [phone] Encounter Details Date Type Department Care Team (Late Contact Info) Description 09/22/2022 Notes [place] [phone] Karly Jacobs MD [facility] [place]OLARYNG[place] [address] Social History Tobacco Use Types Packs/Day Years [...] AM EDT Infusion Hematology Oncology at [address] [phone] 09/21/2023 9:30 AM EDT Office Visit [place]ology [place] [phone] Micha Givens Jr., MD [facility] DR HEMATOLOGY [place] [address] 09/21/2023 10:30 AM EDT Clinical Support [place]emat[place] [address] Danii Her RN 09/26/2023 8:30 AM EDT Infusion Hematology Oncology at [address] [phone] 10/03/2023 9:00 AM EDT Office Visit Hematology/Oncology at [address] [phone] Adrianne Ramon MD [facility] DR HEMATOLOGY [place] [address] Yael Merlos APRN [facility] DR HEMATOLOGY [place] [address] 10/03/2023 9:30 AM EDT Infusion Hematology Oncology at [address] [phone] 10/10/2023 8:30 AM EDT Infusion Hematology Oncology at [address] [phone] documented as of this encounter Visit Diagnoses Not on filedocumented in this encounter Care Teams Field Checker Relationship Specialty Start Date End Date Frederick Meade MD [address] [place] [address] [address] [facility] [place] [address] PCP - General Family Medicine 11/29/17 documented as of this encounter
--- OUTSIDE RECORDS SUMMARY | 2023-09-19 02:36 | XMS_ITS | Encounter Summary ---
Author Organization [facility] [place] [address] Care Team Providers Care Chief Cruiser Name Role Phone Bobby Headley MD Primary Care Provider [phone] Encounter Details Date Type Department Care Team (Late st Contact Info) Description 01/12/2015 8:15 AM EST Office Visit Radiation Oncology at [address] [phone] Nitin Stauffer MD [address] [place] [address] DR RADIATION ONCOLOGY [place], [place] [phone] Cancer of prostate with intermediate recurrence risk (stage T2b-c or [place] 7 or PSA 10-20) Social History Tobacco [...] Uncontrollable bleeding A Radiation Oncology doctor is iron worker apprentice after our normal hours and on weekends. To call for urgent medical issues from radiation treatments that can not wait until normal business hours, please call and have the cutter operator brick page the Radiation Oncologist iron worker apprentice. Nitin Ramirez MD documented in this encounter Progress Notes * Nitin Stauffer MD - 01/12/2015 7:58 AM EST [facility] On Treatment Visit Patient ID: Cheo Freire [...] AM EDT Infusion Hematology Oncology at [address] [phone] 09/21/2023 9:30 AM EDT Office Visit [place]ematology [place] [address] Micha Givens Jr., MD [facility] DR [place] [address] 09/21/2023 10:30 AM EDT Clinical Support [place]emat[place] [address] Danii Her RN 09/26/2023 8:30 AM EDT Infusion Hematology Oncology at [address] [phone] 10/03/2023 9:00 AM EDT Office Visit Hematology/Oncology at [address] [phone] Adrianne Ramon MD [facility] [place] [address] Yael Merlos, KARLA [facility] [place] [address] 10/03/2023 9:30 AM EDT Infusion Hematology Oncology at [address] [phone] 10/10/2023 8:30 AM EDT Infusion Hematology Oncology at [address] [phone] documented as of this encounter Visit Diagnoses Diagnosis Cancer of prostate with intermediate recurrence risk (stage T2b-c or [place] 7 or PSA 10-20) Malignant neoplasm of prostate documented in this encounter Care Teams Chief Cruiser Relationship Specialty Start Date End Date Bobby Headley MD [address] [place] [address] PCP - General 01/29/14 11/28/17 documented as of this encounter
--- OUTSIDE RECORDS SUMMARY | 2023-09-19 02:36 | XMS_ITS | Encounter Summary ---
Author Organization [facility] [place] [address] Care Team Providers Care Skein Bleacher Name Role Phone Frederick Meade MD Primary Care Provider [phone] Encounter Details Date Type Department Care Team (Latest Contact Info) Description 09/22/2022 12:50 AM EDT Ancillary Procedure [place] [address] Thierry Ruiz MD [facility] [place] [address] Nasopharyngeal mass Social History Tobacco Use Types [...] AM EDT Infusion Hematology Oncology at [address] [phone] 09/21/2023 9:30 AM EDT Office Visit Hematology [place] [phone] Micha Givens Jr., MD [facility] DR HEMATOLOGY [place] [address] 09/21/2023 10:30 AM EDT Clinical Support Hematology [place] [address] Danii Her RN 09/26/2023 8:30 AM EDT Infusion Hematology Oncology at [address] [phone] 10/03/2023 9:00 AM EDT Office Visit Hematology/Oncology at [address] [phone] Adrianne Ramon MD [facility] DR HEMATOLOGY [place] [address] Yael Merlos APRN [facility] HEMATOLOGY [place] [address] 10/03/2023 9:30 AM EDT Infusion Hematology Oncology at [address] [phone] 10/10/2023 8:30 AM EDT Infusion Hematology Oncology at [address] [phone] documented as of this encounter Procedures Procedure [...] have questions please contact the health care worker that requested your imaging first. ? Electronically signed by: Kervin Lam MD, [facility] ([phone]), at 09/22/2022 3:13 PM Narrative 09/22/2022 3:13 PM EDT EXAMINATION: REQUEST FOR 2ND READ CT NECK CLINICAL HISTORY: Nasopharyngeal fluid collection vs infected node, retropharyngeal adenopathy, BOT fullness, RIGHT thyroid lesion; Sending Institution [facility]; Date of exam 09/21/2022; I believe a [...] fullness, RIGHT thyroid lesion; Sending Institution [facility]; Date of exam 09/21/2022; I believe a [...] who have questions please contactthe health care worker that requested your imaging first. Thierry Ruiz MD IMG OUTSIDE INTERPRE TATION ORDERABLES documented in this encounter Visit Diagnoses Diagnosis Nasopharyngeal mass Unspecified disease of pharynx documented in this encounter Care Teams Skein Bleacher Relationship Specialty Start Date End Date Frederick Meade MD [address] [place] [address] PCP - General Family Medicine 11/29/17 documented as of this encounter
--- OUTSIDE RECORDS SUMMARY | 2023-09-19 02:36 | XMS_ITS | Encounter Summary ---
Author Organization [facility] [place] [address] Care Team Providers Care Barrel Assembler Name Role Phone Bobby Headley MD Primary Care Provider [phone] Encounter Details Date Type Department Care Team (Late st Contact Info) Description 05/24/2016 11:00 AM EDT Office Visit Hematology/Oncology at [address] [phone] Annika Quezada APRN [facility] [place] [address] Prostate cancer Social History Tobacco Use Types [...] prostate cancer with pretreatment PSA of 5.4 [place] 4+3=7. He was treated with external beam [...] elevated at 5.4 with only 9% free. [place] with Dr. Vergara July 2014 who offered biopsy which was performed 09/01/14, demonstrating Gleason4 + 3 disease in a single core at the right apex. Forty-five percent of that core did appear to be involved. Perineural invasion was not seen. Pathology had been reviewed here at [facility]. The patient is here today to discuss [...] the prostate Field orientation: Dynamic arc VMAT Awning Maker Target Coverage (70Gy isodose line indicated): Hormone [...] Biopsy 09/01/2014 Volume in cc 15 cc [place] grade/score a+b=c 4+3=7-- intermediate risk prostate cancer [...] of education: N/A Occupational History ??? 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 Smoking status: Former Smoker Packs/day: 1.00 Types: Cigarettes ??? Smokeless tobacco: Former User Quit date: 02/19/1986 Comment: started smoking in [employer] ??? Alcohol use 1.8 oz/week 3 [...] to their sporting events. He went to [place] last September to attend a [employer] tournament andhad a great time. He feels [...] prostate cancer with pretreatment PSA of 5.4 [place] 4+3=7. He was treated with external beam [...] AM EDT Infusion Hematology Oncology at [address] [address] 09/21/2023 9:30 AM EDT Office Visit Hematology [place] [address] Micha Givens Jr., MD [facility] HEMATOLOGY [place] [address] 09/21/2023 10:30 AM EDT Clinical Support Hematology [place] [address] Danii Her RN 09/26/2023 8:30 AM EDT Infusion Hematology Oncology at [address] [address] 10/03/2023 9:00 AM EDT Office Visit Hematology/Oncology at [address] [address] Adrianne Ramon MD [facility] DR HEM[place] [address] Yael Merlos APRN [facility] DR [place]EM[place] [address] 10/03/2023 9:30 AM EDT Infusion Hematology Oncology at [address] [address] 10/10/2023 8:30 AM EDT Infusion Hematology Oncology at [address] [phone] documented as of this encounter Visit Diagnoses Diagnosis Prostate cancer Malignant neoplasm of prostate documented in this encounter Care Teams Barrel Assembler Relationship Specialty Start Date End Date Bobby Headley MD [address] [place] [address] PCP - General 01/29/14 11/28/17 documented as of this encounter
--- OUTSIDE RECORDS SUMMARY | 2023-09-19 02:36 | XMS_ITS | Encounter Summary ---
[place] [address] Care Team Providers Care Elastic Yarn Twister Name Role Phone Frederick Meade MD Primary Care Provider [phone] Reason for Visit * Reason Comments Radiation Follow-up prostate cancer Encounter Details Date Type Department Care Team (Late st Contact Info) Description 08/21/2018 9:00 AM EDT Office Visit Radiation Oncology at [address] [phone] Anna Carr [address] [place] [address] Malignant neoplasm of prostate Social [...] 07/16/2018-- WBC= 6.9, RBC= 3.71, HGB=8, HCT=28.5, BUEX=011, FERRITIN= 7 (L) Date PSA Testosterone (normal [...] offered biopsy which was performed 09/01/14, demonstrating Jansen 4+ 3 disease in a single core at the right apex. Forty-five percent of that core did appear to be involved. Perineural invasion was not seen. Pathology had been reviewed at [facility]. He did have a prolonged discussion [...] the prostate Field orientation: Dynamic arc VMAT Food And Beverage Coordinator Target Coverage (70Gy isodose line indicated): Hormone [...] on file Occupational History ??? 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 Financial resource strain: [...] file Gets together: Not on file Attends spiritism service: Not on file Active member of [...] or finances. He is part of a [employer] league and loves to bowl two to [...] Visit from 08/21/2018 in Radiation Oncology at [facility] Weight 94.9 kg (209 lb 4.8 [...] 07/16/2018-- WBC= 6.9, RBC= 3.71, HGB=8, HCT=28.5, IOLM=830, FERRITIN= 7 (L) Date PSA Testosterone (normal [...] AM EDT Infusion Hematology Oncology at [address] [phone] 09/21/2023 9:30 AM EDT Office Visit Hematology [place] [address] Micha Givens Jr., MD [facility] DR HEMAT[place] [address] 09/21/2023 10:30 AM EDT Clinical Support Hematology [place] [address] Danii Her, RN 09/26/2023 8:30 AM EDT Infusion Hematology Oncology at [address] [phone] 10/03/2023 9:00 AM EDT Office Visit Hematology/Oncology at [address] [phone] Adrianne Ramon MD [facility] DR [place] [address] Yael Merlos APRN [facility] DR HEMATOLOGY [place] [address] 10/03/2023 9:30 AM EDT Infusion Hematology Oncology at [address] [phone] 10/10/2023 8:30 AM EDT Infusion Hematology Oncology at [address] [phone] documented as of this encounter Visit Diagnoses Diagnosis Malignant neoplasm of prostate documented in this encounter Care Teams Elastic Yarn Twister Relationship Specialty Start Date End Date Frederick Meade MD [address] [place] [address] PCP - General Family Medicine 11/29/17 documented as of this encounter
--- OUTSIDE RECORDS SUMMARY | 2023-09-19 02:36 | XMS_ITS | Encounter Summary ---
[place] [address] Care Team Providers Care Motorcycle Mechanic Apprentice Name Role Phone Bobby Headley MD Primary Care Provider [phone] Reason for Visit * Reason Comments Radiation Follow-up prostate cancer Encounter Details Date Type Department Care Team (Late st Contact Info) Description 05/31/2017 11:15 AM EDT Office Visit Radiation Oncology at [address] [phone] Anna Carr [address] RADIATION ONCOLOGY [place], [place] [id number] Malignant neoplasm of prostate Social History Tobacco [...] Visit from 05/31/2017 in Radiation Oncology at [facility] Weight 91.7 kg (202 lb 3.2 [...] prostate cancer with pretreatment PSA of 5.4 Jackson 4+3=7. He was treated with external beam [...] elevated at 5.4 with only 9% free. Union with Dr. Vergara July 2014 who offered biopsy which was performed 09/01/14, demonstrating Gleason4 + 3 disease in a single core at the right apex. Forty-five percent of that core did appear to be involved. Perineural invasion was not seen. Pathology had been reviewed here at [facility]. 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 Smoking [...] sporting events. He will be going to [place] in September to attend a [employer] tournament. He feels he is coping well. [...] Visit from 05/31/2017 in Radiation Oncology at [facility] Weight 91.7 kg (202 lb 3.2 [...] content normal. Vitals reviewed. 05/24/2017 labs CA=9.3, RJL=163, BUN=37, CREAT=1.45, EGFR=48.25, EB=394, K=3.4, ZB=067, CO2=25.1, MG=2.0 Date PSA testosterone 05/23/2017 < [...] AM EDT Infusion Hematology Oncology at [address] [phone] 09/21/2023 9:30 AM EDT Office Visit Hematology [place] [address] Micha Givens Jr., MD [facility] [address] [place] [address] 09/21/2023 10:30 AM EDT Clinical Support Hematology [place] [address] Danii Her, RN 09/26/2023 8:30 AM EDT Infusion Hematology Oncology at [address] [phone] 10/03/2023 9:00 AM EDT Office Visit Hematology/Oncology at [address] [phone] Adrianne Ramon MD [facility] [address] [place] [address] Yael Merlos APRN [facility] [address] [place] [address] 10/03/2023 9:30 AM EDT Infusion Hematology Oncology at [address] [phone] 10/10/2023 8:30 AM EDT Infusion Hematology Oncology at [address] [phone] documented as of this encounter Visit Diagnoses Diagnosis Malignant neoplasm of prostate documented in this encounter Care Teams Motorcycle Mechanic Apprentice Relationship Specialty Start Date End Date Bobby Headley MD [address] [place] [address] PCP - General 01/29/14 11/28/17 documented as of this encounter
--- OUTSIDE RECORDS SUMMARY | 2023-09-19 02:36 | XMS_ITS | Encounter Summary ---
[place] [address] Care Team Providers Care Wood Pattern Maker Name Role Phone Bobby Headley MD Primary Care Provider [phone] Encounter Details Date Type Department Care Team (Late st Contact Info) Description 11/26/2014 9:00 AM EDT Office Visit Radiation Oncology at [address] [phone] Nitin Stauffer MD [address] [place] [address] DR RADIATION ONCOLOGY [place], [place] [phone] Cancer of prostate with intermediate recurrence risk (stage T2b-c or Jackson 7 or PSA 10-20) Social History Tobacco [...] Uncontrollable bleeding A Radiation Oncology doctor is regional sales coordinator after our normal hours and on weekends. To call for urgent medical issues from radiation treatments that can not wait until normal business hours, please call and have the solvent plant operator page the Radiation Oncologist regional sales coordinator. Nitin Ramirez MD documented in this encounter Progress Notes * Nitin Stauffer MD - 11/26/2014 11:16 AM EDT [facility] On Treatment Visit Patient ID: Cheo Freire [...] AM EDT Infusion Hematology Oncology at [address] [address] 09/21/2023 9:30 AM EDT Office Visit [place]ology [place] [address] Micha Givens Jr., MD [facility] DR HEMATOLOGY [place] [address] 09/21/2023 10:30 AM EDT Clinical Support [place]ematology [place] [address] Danii Her RN 09/26/2023 8:30 AM EDT Infusion Hematology Oncology at [address] [address] 10/03/2023 9:00 AM EDT Office Visit Hematology/Oncology at [address] [phone] Adrianne Ramon MD [facility] DR HEMATOLOGY [place] [address] Yael Merlos APRN [facility] HEMATOLOG[place] [address] 10/03/2023 9:30 AM EDT Infusion Hematology Oncology at [address] [phone] 10/10/2023 8:30 AM EDT Infusion Hematology Oncology at [address] [phone] documented as of this encounter Visit Diagnoses Diagnosis Cancer of prostate with intermediate recurrence risk (stage T2b-c or Jackson 7 or PSA 10-20) Malignant neoplasm of prostate documented in this encounter Care Teams Wood Pattern Maker Relationship Specialty Start Date End Date Bobby Headley MD [address] [place] [address] PCP - General 01/29/14 11/28/17 documented as of this encounter
--- OUTSIDE RECORDS SUMMARY | 2023-09-19 02:36 | XMS_ITS | Encounter Summary ---
[place] [address] Care Team Providers Care Spinner Continuous Name Role Phone Bobby Headley MD Primary Care Provider [phone] Reason for Visit * Reason Comments On Treatment Visit Encounter Details Date Type Department Care Team (Late st Contact Info) Description 12/03/2014 1:15 PM EDT Office Visit Radiation Oncology at [address] [phone] Nitin Stauffer MD [address] [place] [address] [place] [address] Cancer of prostate with intermediate recurrence risk (stage T2b-c or [place] 7 or PSA 10-20) Social History Tobacco [...] Uncontrollable bleeding A Radiation Oncology doctor is juvenile court liaison after our normal hours and on weekends. To call for urgent medical issues from radiation treatments that can not wait until normal business hours, please call and have the pneumatic tool operator page the Radiation Oncologist juvenile court liaison. Nitin Ramirez MD documented in this encounter Progress Notes * Nitin Stauffer MD - 12/03/2014 1:14 PM EDT [facility] On Treatment Visit Patient ID: Cheo Freire [...] AM EDT Infusion Hematology Oncology at [address] [phone] 09/21/2023 9:30 AM EDT Office Visit [place]ematology [place] [address] Micha Givens Jr., MD [facility] DR [place] [address] 09/21/2023 10:30 AM EDT Clinical Support [place]ematology [place] [address] Danii Her RN 09/26/2023 8:30 AM EDT Infusion Hematology Oncology at [address] [phone] 10/03/2023 9:00 AM EDT Office Visit Hematology/Oncology at [address] [phone] Adrianne Ramon MD [facility] [place] [address] Yael Merlos APRN [facility] [place] [address] 10/03/2023 9:30 AM EDT Infusion Hematology Oncology at [address] [phone] 10/10/2023 8:30 AM EDT Infusion Hematology Oncology at [address] [phone] documented as of this encounter Visit Diagnoses Diagnosis Cancer of prostate with intermediate recurrence risk (stage T2b-c or [place] 7 or PSA 10-20) Malignant neoplasm of prostate documented in this encounter Care Teams Spinner Continuous Relationship Specialty Start Date End Date Bobby Headley MD [address] [place] [address] PCP - General 01/29/14 11/28/17 documented as of this encounter
--- OUTSIDE RECORDS SUMMARY | 2023-09-19 02:36 | XMS_ITS | Encounter Summary ---
Author Organization [facility] [address] Care Team Providers Care Automotive Sales Professional Name Role Phone Bobby Headley MD Primary Care Provider [phone] Encounter Details Date Type Department Care Team (Latest Contact Info) Description 01/07/2015 Unscheduled Encounter Hematology/Oncology at [address] [phone] [facility] RADIATION [place] [address] Dietary counseling and surveillance; Dietary counseling Social [...] Narvaez RD - 01/07/2015 8:45 AM EST [facility] Initial Dietitian Assessment Seen By: Gay Narvaez MS, RD, SUPERVISOR STAVE CUTTING, LD Referred by: Dr. Stauffer Reason for [...] AM EDT Infusion Hematology Oncology at [address] [phone] 09/21/2023 9:30 AM EDT Office Visit [place]ematology [place] [address] Micha Givens Jr., MD [facility] DR HEMATOLOGY AND [place] [address] 09/21/2023 10:30 AM EDT Clinical Support [place] [address] Danii Her RN 09/26/2023 8:30 AM EDT Infusion Hematology Oncology at [address] [phone] 10/03/2023 9:00 AM EDT Office Visit Hematology/Oncology at [address] [phone] Adrianne Ramon MD [facility] DR HEMATOLOGY [place] [address] Yael Merlos APRN [facility] DR HEMATOLOGY [place] [address] 10/03/2023 9:30 AM EDT Infusion Hematology Oncology at [address] [phone] 10/10/2023 8:30 AM EDT Infusion Hematology Oncology at [address] [phone] documented as of this encounter Visit Diagnoses Diagnosis Dietary counseling and surveillance Dietary surveillance and counseling Dietary counseling Dietary surveillance and counseling documented in this encounter Care Teams Automotive Sales Professional Relationship Specialty Start Date End Date Bobby Headley MD [address] [place] [address] PCP - General 01/29/14 11/28/17 documented as of this encounter
--- OUTSIDE RECORDS SUMMARY | 2023-09-19 02:36 | XMS_ITS | Encounter Summary ---
[place] [address] Care Team Providers Care Founder President And Ceo Name Role Phone Frederick Meade MD Primary Care Provider [phone] Reason for Referral * Diagnostic Test (Routine) - Closed Specialty Diagnoses / Procedures Referred By Contac t Referred To Contact Radiology Diagnoses Diffuse large B-cell lymphoma of lymph nodes of multiple regions Procedures IR Mediport Placement Adrianne Ramon MD [facility] [address] [place] [address] [place] [address] Referral ID Status Reason Start Date Expiration Date V isits Requested Visits Authorized [id number] Closed Specialty Service Requested 10/11/2022 04/13/2024 1 [...] [facility] [address] [place] [address] [place] [address] Referral ID Status Reason Start Date Expiration Date V isits Requested Visits Authorized [id number] Closed Specialty Service Requested 10/10/2022 04/12/2024 1 2 Reason for Visit * Consultation (Routine) - Closed Specialty Diagnoses / Procedures Referred By Contac t Referred To Contact Hematology and Oncology Diagnoses Diffuse large B-cell lymphoma, unspecified body region Lg Ramírez MD [address] [place] [address] [address] [address] Hem Onc Office [address] [place] [phone] Referral ID Status Reason Start Date Expiration Date V isits Requested Visits Authorized [id number] Closed Consult, Test & Treat 10/10/2022 10/10/2023 1 1 Encounter Details Date Type Department Care Team (Late st Contact Info) Description 10/11/2022 12:00 PM EDT Office Visit Hematology/Oncology at [address] [phone] Adrianne Ramon MD [facility] [address] [place] [address] Non-Hodgkin lymphoma of lymph nodes of multiple [...] - 10/11/2022 12:00 PM EDT Hematology Clinic [facility] [place] [address] NEW PATIENT EVALUATION Patient Active Problem List [...] weeks ago saw [facility] and when to [facility]. No beds so sent to [facility] for [address] CAP, MRI,and biopsies there. He reports that he was treated for presumed infection (presumed acute retropharyngeal abscess) with Augmentin and dexamethasone. There was also question of whether he may have been having an allergic reaction to lisinopril. He was discharged off of steroids. He then saw Dr. Ramírze urgently on 10/05/2022, who performed 2 biopsies, one of the tonsil, and 1 needle biopsy of a right post cervical lymph node. Dr. Gloria started prednisone 60 mg daily x7 days with nice response. Pathology from [facility] reports large B-cell lymphoma. Double expresser. FISH for translocations are pending. Tongue swelling. No wt loss. Eating and drinking OK. No fevers, infections, No NS. Pain in neck.Prednisone 60mg daily X 7 days. I feel great on prednisone last day of prednisone is today Took iron supplements per PCP - unclear cause. - last COLO at [facility] was 01/17/2012. This dictation platform is no longer active. Please use Live Mobileon. ONCOLOGY HISTORY: Intermediate risk prostate cancer (4+3, [...] Freire. Enjoys reads, movies, race car, cards. [employer]. 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 Not a . ETOH: 1-3 beers per week Smoking: Quit 1985. Approximately [id number] history Vaping or electronic cigarettes: denies Chewing [...] and BCL-2 protein (Double Expressor.) Flow cytometry ([id number]) supports this interpretation. The differential classification of this lesion is diffuse large B-cell lymphoma versus high grade B-cell lymphoma with MYC and BCL-2 rearrangement. Material has been sent to [facility] to assess the status of these [...] investigation with ultrasound. CT CAP at [facility], report and images have been requested. [...] treatment. We will obtain his pathology from [facility], but it appears to be [...] will plan to see him tomorrow at [facility] after the PET scan for brief review of the PET scan and discussion of next steps. I did explain to the patient and his family that he most likely will receive R-CHOP chemotherapy which is given 1 day as an outpatient and [facility] and repeated every 3 weeksfor a total of 6 cycles. This takes about 4-1/2 months to complete. I anticipate his lymphoma will respond well. Suspected MEHNAZ - Hgb drop 3gm in last 2 weeks. Taking oral iron 2 tabs per day. Stools have been health professor recently. No COLO in last 10 years. Will add iron studies to labs today and check PET tomorrow.Will follow. Labs seem most consistent with anemia of chronic disease. Prostate Cancer -DAVE at this time Plan: PET tomorrow [facility] Obtain Path for review at [facility] - follow on FISH Obtain records from [facility] -CT chest abdomen and pelvis, discharge summary, and MRI Prednisone -we will hold for now. Await PET scan tomorrow. Mediport -order placed and requested today PTI -on 10/18 at 8 AM with Yael Merlos at [facility] ECHO-tomorrow at [facility] Add on MEHNAZ labs -results returned and listed above Labs on day of PET at [facility] Consult social work at next visit -not yet discussed Consult nutrition at next visit -not yet discussed Plan allopurinol X 14 d w/ C#1 Support with Onpro ID - acv prophy - add antibiotics only if neutropenic. Labs tomorrow at [facility] - hep B/C, HIV, uric I discussed all of the above with the patient and all of his questions were answered. Support and counseling as appropriate. This note was written or modified using SimpleOrder voice recognition software. The final note was screened for internet database specialist errors. Please excuse any remaining errors. total time: time in counselling: Copy Frederick Meade MD * Polly Orellana RN - 10/11/2022 12:00 PM EDT [facility] Patient Medical Oncology Note SOCIAL ASSESSMENT: See [facility] social assessment information entered. 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 Need FMLA paperwork signed [...] [ ] no Local Pharmacy: [facility] in [facility] FUNCTIONAL SCREENING: Balance difficulty: [ x ]no [...] AM EDT Infusion Hematology Oncology at [address] [address] 09/21/2023 9:30 AM EDT Office Visit Hematology [place] [address] Micha Givens Jr., MD [facility] [address] [place] [address] 09/21/2023 10:30 AM EDT Clinical Support Hematology [place] [address] Danii Her RN 09/26/2023 8:30 AM EDT Infusion Hematology Oncology at [address] [address] 10/03/2023 9:00 AM EDT Office Visit Hematology/Oncology at [address] [phone] Adrianne Ramon MD [facility] DR [place] [address] Yael Merlos, KARLA [facility] DR [place] [address] 10/03/2023 9:30 AM EDT Infusion Hematology Oncology at [address] [phone] 10/10/2023 8:30 AM EDT Infusion Hematology Oncology at [address] [phone] Scheduled Orders Name Type Priority Associated Diagnoses [...] Uric Acid 5.5 3.5 - 8.5 mg/dL [facility] Blood 03/06/2023 7:45 AM EST 03/06/2023 8:00 AM EST Narrative Resulting Agency Comment Spec In Lab Adrianne Ramon MD CHEMISTRY ORDERA BLES [facility] [place] [address] * Lactate Dehydrogenase (03/06/2023 7:45 AM EST) LDH 198 110 - 220 unit/L [facility] Blood 03/06/2023 7:45 AM EST 03/06/2023 8:00 AM EST Narrative Resulting Agency Comment Spec In Lab Adrianne Ramon MD CHEMISTRY ORDERA BLES Performing Organization Address [facility] Co de Phone Number [facility] [place] [address] * (ABNORMAL) Immunoglobulins, Quantitative (03/06/2023 7:45 AM EST) IgG 572(L) 700 - 1,600 mg/dL [facility] Comment: Pediatric Reference Intervals obtained from the Caliper Reference Interval project. http://www.FOODit.ca/caliperproject/index.html IgA 118 70 - 400 mg/dL [facility] IgM 123 40 - 230 mg/dL [facility] Blood 03/06/2023 7:45 AM EST 03/06/2023 8:00 AM EST Narrative Resulting Agency Comment Spec In Lab Adrianne Ramon MD CHEMISTRY ORDERA BLES Performing Organization Address [facility] Co de Phone Number [facility] [place] [address] * (ABNORMAL) Comprehensive metabolic panel (non-fasting) (03/06/2023 7:45 AM EST) Glucose Lvl 133 65 - 199 mg/dL [facility] Comment:Diabetes: >=200 mg/d L plus symptoms BUN 12 10 - 20 mg/dL [facility] Creatinine 0.94 0.80 - 1.50 mg/dL [facility] Sodium 143 135 - 145 mmol/L [facility] Potassium 3.7 3.5 - 5.0 mmol/L [facility] Comment: Please note: ??Patients with WBC >100,000 may have falsely elevated Potassium levels. ??For accurate Potassium quantification in these patients send serum separator tube (gold top) for subsequent determinations. ??Contact the Clinical Chemistry Laboratory if there are any questions. Chloride 108(H) 98 - 107 mmol/L [facility] CO2 23 22 - 31 mmol/L [facility] Anion Gap 12 5 - 15 mmol/L [facility] Calcium 9.6 8.5 - 10.5 mg/dL [facility] Total Protein 6.4 6.1 - 8.0 g/dL [facility] Albumin 4.1 3.2 - 5.2 g/dL [facility] AST 22 0 - 39 unit/L [facility] ALT 18 0 - 55 unit/L [facility] Alk Phos 103 40 - 130 unit/L [facility] Total Bilirubin 0.2 0.2 - 1.3 mg/dL [facility] Estimated GFR 85 >=60 mL/min/1. 73 m?? [facility] Comment: This patient's estimated [...] Lab Adrianne Ramon MD CHEMISTRY ORDERA DANICAS [facility] [place] [address] * HIV Screen, 4th Generation ([facility]/CGP/APD/NLH) (10/17/2022 11:45 AM EDT) HIV-1/2 Ab and Ag Negative Negative [facility] Comment: This 4th Generation HIV test [...] HIV Comment Low Risk of HIV Infection [facility] Blood 10/17/2022 11:4 5 AM EDT 10/17/2022 12:08 PM EDT Narrative Resulting Agency Comment Spec In Lab Adrianne Ramno MD IMMUNOLOGY ORDER DUONG [facility] [place] [address] * Hepatitis C Antibody (10/17/2022 11:45 AM EDT) Hepatitis C Ab Negative Negative [facility] Blood 10/17/2022 11:4 5 AM EDT 10/17/2022 12:08 PM EDT Narrative Resulting Agency Comment Spec In Lab Adrianne Ramon MD IMMUNOLOGY ORDER DUONG Performing Organization Address City/[facility] Co de Phone Number [facility] [place] [address] * IR Mediport Placement (10/17/2022 10:44 AM EDT) Anatomical Region Laterality Modality X-Ray Angiograph y Narrative 10/17/2022 11:06 AM EDT Interventional Radiology Procedure Note Procedure: Subcutaneous venous port implant Indication: Diffuse large B-cell lymphoma, durable snf central venous access for chemotherapy Procedure summary: [...] who have questions please contact the health pet care associate that requested your imaging first. ? Electronically signed by: Rohan Henley MD, [facility] ([phone]), at 10/12/2022 3:23 PM Narrative 10/12/2022 3:23 PM EDT EXAMINATION: NM PET CT STANDARD PLUS EXTREMITIES AND HEAD CLINICAL HISTORY: Non-Hodgkin lymphoma, staging new large B cell lymphoma - involving oropharynx/ cervical. ??staging. TECHNIQUE: Procedure: Following IV injection of 12-ruwvkm-0-deoxyglucose (FDG) a standard uptake of approximately 60 [...] staging. TECHNIQUE: Procedure: Following IV injection of 77-blgola-8-deoxyglucose(FDG) a standard uptake of approximately 60 minutes, [...] patients who have questions please contactthe health pet care associate that requested your imaging first. Electronically signed by: Rohan Henley MD, [facility]([phone]), at 10/12/2022 3:23 PM Adrianne Ramon MD IMG PET ORDERABL ES * Comprehensive metabolic panel (non-fasting) (10/11/2022) [facility] BUN 20 Creatinine 1.2 Sodium 134 Potassium 4.0 Total Bilirubin 0.3 AST 15 ALT 49 LDH 283 Iron 62 Iron Saturation 29 Ferritin 139 TIBC 214 Blood 10/11/2022 Historical Provider CHEMISTRY ORDERAB LES * CBC (with Diff) (10/11/2022) [facility] WBC 11.95 Hemoglobin 10.8 Hematocrit 32.1 [...] LES * CBC (with Diff) (09/30/2022) Pathologist [facility] WBC 13.34 Hemoglobin 13.0 Hematocrit 37.4 Platelets 320 Neutr Abs (ANC) 9.02 Blood 09/30/2022 Historical Provider HEMATOLOGY ORDERA BLES * PSA (Ultrasensitive) (09/21/2022) Pathologist [facility] PSA Total (Ultrasensitive ) 0.04 Blood 09/21/2022 [...] regions documented in this encounter Care Teams Founder President And Ceo Relationship Specialty Start Date End Date Frederick Meade MD [address] [place] [address] [address] [facility] [address] [place] [address] PCP - General Family Medicine 11/29/17 documented as of this encounter
--- OUTSIDE RECORDS SUMMARY | 2023-09-19 02:36 | XMS_ITS | Encounter Summary ---
[place] [address] Care Team Providers Care Grants Manager Name Role Phone Bobby Headley MD Primary Care Provider [phone] Encounter Details Date Type Department Care Team (Late st Contact Info) Description 12/10/2014 11:45 AM EDT Office Visit Radiation Oncology at [address] [phone] Nitin Stauffer MD [address] [place] [address] DR RADIATION ONCOLOGY [place], [place] [phone] Cancer of prostate with intermediate recurrence risk [...] Uncontrollable bleeding A Radiation Oncology doctor is pallet stone positioner after our normal hours and on weekends. To call for urgent medical issues from radiation treatments that can not wait until normal business hours, please call and have the carding machine operator page the Radiation Oncologist pallet stone positioner. Nitin Ramirez MD documented in this encounter Progress Notes * Nitin Stauffer MD - 12/10/2014 11:08 AM EDT [facility] [...] AM EDT Infusion Hematology Oncology at [address] [address] 09/21/2023 9:30 AM EDT Office Visit [place] [address] Micha Givens Jr., MD [facility] [place] [address] 09/21/2023 10:30 AM EDT Clinical Support [place] [address] Danii Her RN 09/26/2023 8:30 AM EDT Infusion Hematology Oncology at [address] [address] 10/03/2023 9:00 AM EDT Office Visit Hematology/Oncology at [address] [address] Adrianne Ramon MD [facility] [place] [address] Yael Merlos APRN [facility] [place] [address] 10/03/2023 9:30 AM EDT Infusion Hematology Oncology at [address] [address] 10/10/2023 8:30 AM EDT Infusion Hematology Oncology at [address] [phone] documented as of this encounter Visit Diagnoses Diagnosis Cancer of prostate with intermediate recurrence risk (stage T2b-c or Cierra 7 or PSA 10-20) Malignant neoplasm of prostate documented in this encounter Care Teams Grants Manager Relationship Specialty Start Date End Date Bobby Headley MD [address] [place] [address] PCP - General 01/29/14 11/28/17 documented as of this encounter
--- OUTSIDE RECORDS SUMMARY | 2023-09-19 02:36 | XMS_ITS | Encounter Summary ---
[place] [address] Care Team Providers Care Black Leather Trimmer Name Role Phone Frederick Meade MD Primary Care Provider [phone] Reason for Visit * Reason Comments Radiation Follow-up prostate cancer Encounter Details Date Type Department Care Team (Late st Contact Info) Description 11/29/2017 1:45 PM EDT Office Visit Radiation Oncology at [address] [phone] Anna Carr [address] [place] [address] Malignant neoplasm of prostate Social [...] Visit from 11/29/2017 in Radiation Oncology at [facility] Weight 93.2 kg (205 lb 6.4 [...] elevated at 5.4 with only 9% free. [place] with Dr. Vergara July 2014 who offered biopsy which was performed 09/01/14, demonstrating Gleason4 + 3 disease in a single core at the right apex. Forty-five percent of that core did appear to be involved. Perineural invasion was not seen. Pathology had been reviewed here at [facility]. 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 Smoking [...] Visit from 11/29/2017 in Radiation Oncology at [facility] Weight 93.2 kg (205 lb 6.4 [...] prostate cancer with pretreatment PSA of 5.4 [place] 4+3=7. He was treated with external beam [...] AM EDT Infusion Hematology Oncology at [address] [address] 09/21/2023 9:30 AM EDT Office Visit Hematology [place] [address] Micha Givens Jr., MD [facility] DR HEMATOLOGY [place] [address] 09/21/2023 10:30 AM EDT Clinical Support Hematology [place] [address] Danii Her RN 09/26/2023 8:30 AM EDT Infusion Hematology Oncology at [address] [address] 10/03/2023 9:00 AM EDT Office Visit Hematology/Oncology at [address] [address] Adrianne Ramon MD [facility] DR HEMATOLOGY [place] [address] Yael Merlos APRN [facility] [place] [address] 10/03/2023 9:30 AM EDT Infusion Hematology Oncology at [address] [phone] 10/10/2023 8:30 AM EDT Infusion Hematology Oncology at [address] [phone] documented as of this encounter Procedures Procedure [...] prostate documented in this encounter Care Teams Black Leather Trimmer Relationship Specialty Start Date End Date Frederick Meade MD [address] [place] [address] PCP - General Family Medicine 11/29/17 documented as of this encounter
--- OUTSIDE RECORDS SUMMARY | 2023-09-19 02:36 | XMS_ITS | Encounter Summary ---
Author Organization [facility] [place] [address] Care Team Providers Care Acute Dialysis Nurse Name Role Phone Frederick Meade MD Primary Care Provider [phone] Reason for Referral * Consultation (Routine) - Closed Specialty Diagnoses / Procedures Referred By Contac t Referred To Contact Hematology and Oncology Diagnoses Diffuse large B-cell lymphoma, unspecified body region Lg Ramírez MD [address] [place] [address] [facility] Hem Onc Office [address] [place] [phone] Referral ID Status Reason Start Date Expiration Date V isits Requested Visits Authorized [id number] Closed Consult, Test & Treat 10/10/2022 10/10/2023 1 1 Encounter Details Date Type Department Care Team (Late st Contact Info) Description 10/10/2022 Transcribe Orders eDH Incoming Referrals [phone] Lg Ramírez MD [address] [place] [phone] Diffuse large B-cell lymphoma, unspecified body region [...] AM EDT Infusion Hematology Oncology at [address] [address] 09/21/2023 9:30 AM EDT Office Visit Hematology [place] [address] Micha Givens Jr., MD [facility] HEMATOLOGY [place] [address] 09/21/2023 10:30 AM EDT Clinical Support Hematology [place] [address] Danii Her RN 09/26/2023 8:30 AM EDT Infusion Hematology Oncology at [address] [address] 10/03/2023 9:00 AM EDT Office Visit Hematology/Oncology at [address] [phone] Adrianne Ramon MD [facility] DR [place]AT[place] [address] Yael Merlos APRN [facility] DR [place]AT[place] [address] 10/03/2023 9:30 AM EDT Infusion Hematology Oncology at [address] [address] 10/10/2023 8:30 AM EDT Infusion Hematology Oncology at [address] [phone] Scheduled Referrals Name Type Priority Associated Diagnoses Orde r Schedule Referral to Hematology and Oncology Outpatient Referral Routine Diffuse large B-cell lymphoma, unspecified body region Ordered: 10/10/2022 documented as of this encounter Visit Diagnoses Diagnosis Diffuse large B-cell lymphoma, unspecified body region documented in this encounter Care Teams Acute Dialysis Nurse Relationship Specialty Start Date End Date Frederick Meade MD [address] [place] [address] PCP - General Family Medicine 11/29/17 documented as of this encounter
--- OUTSIDE RECORDS SUMMARY | 2023-09-19 02:37 | XMS_ITS | Encounter Summary ---
Author Organization [facility] [place] [address] Care Team Providers Care Boiler Assistant Operator Name Role Phone Bobby Headley MD Primary Care Provider Encounter Details Date Type Department Care Team (Late st Contact Info) Description 09/01/2014 [place] [phone] Micha Nunez MD [facility] [address] Social History Tobacco Use Types Packs/Day Years [...] AM EDT Infusion Hematology Oncology at [address] [phone] 09/21/2023 9:30 AM EDT Office Visit [place]ematology [place] [phone] Micha Givens Jr., MD [facility] [place] [address] 09/21/2023 10:30 AM EDT Clinical Support [place]ology [place] [phone] Danii Her RN 09/26/2023 8:30 AM EDT Infusion Hematology Oncology at [address] [phone] 10/03/2023 9:00 AM EDT Office Visit Hematology/Oncology at [address] [phone] Adrianne Ramon MD [facility] [place] [address] Yael Merlos APRN [facility] [place] [address] 10/03/2023 9:30 AM EDT Infusion Hematology Oncology at [address] [address] 10/10/2023 8:30 AM EDT Infusion Hematology Oncology at [address] [address] documented as of this encounter Procedures Procedure [...] on filedocumented in this encounter Care Teams Boiler Assistant Operator Relationship Specialty Start Date End Date Bobby Headley MD [address] [place], [place] [address] PCP - General 01/29/14 11/28/17 documented as of this encounter
--- OUTSIDE RECORDS SUMMARY | 2023-09-19 02:37 | XMS_ITS | Encounter Summary ---
[place] [address] Care Team Providers Care Quality Process Auditor Name Role Phone Bobby Headley MD Primary Care Provider [phone] Encounter Details Date Type Department Care Team (Late st Contact Info) Description 10/14/2014 8:30 AM EDT Procedure visit Radiation Oncology at [address] [phone] Nitin Stauffer MD [address] [place] [address] DR RADIATION ONCOLOGY [place], [place] [phone] Cancer of prostate with intermediate recurrence risk (stage T2b-c or Hope 7 or PSA 10-20) Discharge Disposition: Home [...] to undergo MRI of the prostate at [facility]. * Christine Fernando RN - 10/14/2014 8:26 [...] needed for mild discomfort. He has the [facility] phone number and verbalized understanding to ask for the front end web designer radiation oncologist if he needs to after clinic hours. Time of discharge: 10:00 vital signs stable,and gait steady and dressed himself. Dr Stauffer saw him briefly before discharge. documented in this encounter Plan of Treatment Upcoming Encounters Date Type Department Care Team (Late st Contact Info) Description 09/19/2023 8:00 AM EDT Infusion Hematology Oncology at [address] [address] 09/21/2023 9:30 AM EDT Office Visit Hematology [place] [address] Micha Givens Jr., MD [facility] DR [place] [address] 09/21/2023 10:30 AM EDT Clinical Support Hematology [place] [address] Danii Her RN 09/26/2023 8:30 AM EDT Infusion Hematology Oncology at [address] [address] 10/03/2023 9:00 AM EDT Office Visit Hematology/Oncology at [address] [phone] [facility] DR [place] [address] [facility] [place] [address] 10/03/2023 9:30 AM EDT Infusion Hematology Oncology at [address] [phone] 10/10/2023 8:30 AM EDT Infusion Hematology Oncology at [address] [phone] documented as of this encounter Visit Diagnoses Diagnosis Cancer of prostate with intermediate recurrence risk (stage T2b-c or Cierra 7 or PSA 10-20) Malignant neoplasm of prostate documented in this encounter Care Teams Quality Process Auditor Relationship Specialty Start Date End Date Bobby Headley MD [address] [place] [address] PCP - General 01/29/14 11/28/17 documented as of this encounter
--- OUTSIDE RECORDS SUMMARY | 2023-09-19 02:37 | XMS_ITS | Encounter Summary ---
[place] [address] Care Team Providers Care Production Reproduction Manager Name Role Phone Bobby Headley MD Primary Care Provider [phone] Encounter Details Date Type Department Care Team ([facility] [address] Contact Info) Description 03/04/2014 4:07 PM EST - 03/04/2014 11:59 PM EST Hospital [place] [phone] Testis mass Social History Tobacco Use Types [...] AM EDT Infusion Hematology Oncology at [address] [phone] 09/21/2023 9:30 AM EDT Office Visit Hematology [place] [phone] Landry Givens Jr., MD [facility] HEMATOLOGY [place] [address] 09/21/2023 10:30 AM EDT Clinical Support Hematology [place] [address] Danii Her RN 09/26/2023 8:30 AM EDT Infusion Hematology Oncology at [address] [phone] 10/03/2023 9:00 AM EDT Office Visit Hematology/Oncology at [address] [phone] Adrianne Ramon MD [facility] DR HEMATOLOGY [place] [address] Yael Merlos APRN [facility] DR HEMATOLOGY [place] [address] 10/03/2023 9:30 AM EDT Infusion Hematology Oncology at [address] [phone] 10/10/2023 8:30 AM EDT Infusion Hematology Oncology at [address] [phone] documented as of this encounter Procedures Procedure Name Priority Date/Time Associated Diagnosis Comments US SCROTUM Routine 03/04/2014 4:46 PM EST Testis mass documented in this encounter Results * US scrotum (03/04/2014 4:46 PM EST) Anatomical Region Laterality Modality Pelvis Ultrasound 03/04/2014 4:46 PM EST Narrative 03/04/2014 5:00 PM EST Scrotal ?(Signed Final 03/04/2014 05:00 ? pm) Patient Info ID #: ? [id number] ?: ??[birth year] (63 yrs) Name: ? CHEO MORFIN ? Visit Date: 03/04/2014 04:39 pm Performed By Performed By: ?Hannah Wahl RDMS Attending: ? Alexandre OCASIO, Jaime Dumas Referred By: ? LANDRY NUNEZ MD Service(s) Provided ??[facility] - Ultrasound Scrotum and Contents with ?[id number], [id number] ??Vascular - [id number], [id number] Indications ??Evaluate Right testicle hx of testis [...] 03/04/2014 05:00 pm) Patient Info ID #: [id number] : [birth year] (63 yrs) Name: CHEO MORFIN Visit Date: 03/04/2014 04:39 pm Performed By Performed By: Hannah Wahl RDMS Attending: Jaime Schroeder MD Referred By: LANDRY NUNEZ MD Service(s) Provided [facility] - Ultrasound Scrotum and Contents with [id number], [address]755 Vascular - [id number], [id number] Indications Evaluate Right testicle hx of testis [...] organs documented in this encounter Care Teams Production Reproduction Manager Relationship Specialty Start Date End Date Bobby Headley MD [address] [place] [address] PCP - General 01/29/14 11/28/17 documented as of this encounter
--- OUTSIDE RECORDS SUMMARY | 2023-09-19 02:37 | XMS_ITS | Encounter Summary ---
[place] [address] Care Team Providers Care Podopediatrician Name Role Phone Bobby Headley MD Primary Care Provider [phone] Encounter Details Date Type Department Care Team (Late Contact Info) Description 09/30/2014 Orders Only Radiation Oncology at [address] [phone] Nitin Stauffer MD [address] [place] [address] DR RADIATION ONCOLOGY [place], [place] [id number] Social History Tobacco Use Types Packs/Day Years [...] AM EDT Infusion Hematology Oncology at [address] [phone] 09/21/2023 9:30 AM EDT Office Visit Hematology [place] [address] Micha Givens Jr., MD [facility] DR [place] [address] 09/21/2023 10:30 AM EDT Clinical Support Hematology [place] [address] Danii Her, RN 09/26/2023 8:30 AM EDT Infusion Hematology Oncology at [address] [phone] 10/03/2023 9:00 AM EDT Office Visit Hematology/Oncology at [address] [phone] Adrianne Ramon MD [facility] DR [place] [address] Yael Merlos APRN [facility] DR [place] [address] 10/03/2023 9:30 AM EDT Infusion Hematology Oncology at [address] [phone] 10/10/2023 8:30 AM EDT Infusion Hematology Oncology at [address] [phone] documented as of this encounter Visit Diagnoses Not on filedocumented in this encounter Care Teams Podopediatrician Relationship Specialty Start Date End Date Bobby Headley MD [address] [place] [address] PCP - General 01/29/14 11/28/17 documented as of this encounter
--- OUTSIDE RECORDS SUMMARY | 2023-09-19 02:37 | XMS_ITS | Encounter Summary ---
Author Organization [facility] [place] [address] Care Team Providers Care Trail Maintenance Worker Name Role Phone Bobby Headley MD Primary Care Provider [phone] Encounter Details Date Type Department Care Team (Latest Contact Info) Description 10/05/2014 Unscheduled Encounter Radiation Oncology at [address] [phone] Christine Garcia, RN Malignant neoplasm [...] Prescriptions to get filled and things to fruit picker machine operator from the pharmacy: Two [...] relax for the procedure.You will need a assembly line driver to take you home. ??? Change [...] any other concerns. Future Appointments: MRI at [facility]: 10/19 at 11:10 AM arrive at : Your CT simulation, planning session will be done at [facility]. 10/21 arrive at 10:30. You will see the nurse first for patient education .You will need a comfortably full bladder by 11:00 How to reach us: Radiation Oncology [facility] [place] [address] fax After office hours phone: [phone] - ask for radiation oncology doctor information technology advisor Radiation Oncology [address] [address] documented in this encounter Progress Notes * Christine Fernando RN - 10/05/2014 2:22 PM EDT Radiation Oncology Nurse Note [place], [place] See AVS for instructions provided to patient and his in preparation for Gold cask maker implant procedure scheduled for Sun10/14/14. Prescriptions for Cipro and Dexamethasone sent to [facility]. documented in this encounter Plan of Treatment Upcoming Encounters Date Type Department Care Team (Late st Contact Info) Description 09/19/2023 8:00 AM EDT Infusion Hematology Oncology at [address] [address] 09/21/2023 9:30 AM EDT Office Visit Hematology [place] [phone] Micha Givens Jr., MD [facility] HEMATOLOGY [place] [address] 09/21/2023 10:30 AM EDT Clinical Support Hematology [place] [address] Danii Her RN 09/26/2023 8:30 AM EDT Infusion Hematology Oncology at [address] [address] 10/03/2023 9:00 AM EDT Office Visit Hematology/Oncology at [address] [address] Adrianne Ramon MD [facility] [place] [address] Yael Merlos APRN [facility] [place] [address] 10/03/2023 9:30 AM EDT Infusion Hematology Oncology at [address] [address] 10/10/2023 8:30 AM EDT Infusion Hematology Oncology at [address] [address] documented as of this encounter Visit Diagnoses Diagnosis Malignant neoplasm of prostate documented in this encounter Care Teams Trail Maintenance Worker Relationship Specialty Start Date End Date Bobby Headley MD [address] [place] [address] PCP - General 01/29/14 11/28/17 documented as of this encounter
--- OUTSIDE RECORDS SUMMARY | 2023-09-19 02:37 | XMS_ITS | Encounter Summary ---
Author Organization [facility] [place] [address] Care Team Providers Care Bitumastic Applier Name Role Phone Bobby Headley MD Primary Care Provider [phone] Encounter Details Date Type Department Care Team (Late st Contact Info) Description 12/30/2013 [place] [phone] Micha Nunez MD [facility] [place] [address] Social History Tobacco Use Types Packs/Day Years [...] AM EDT Infusion Hematology Oncology at [address] [phone] 09/21/2023 9:30 AM EDT Office Visit Hematology [place] [phone] Micha Givens Jr., MD [facility] [place] [address] 09/21/2023 10:30 AM EDT Clinical Support Hematology [place] [phone] Danii Her RN 09/26/2023 8:30 AM EDT Infusion Hematology Oncology at [address] [address] 10/03/2023 9:00 AM EDT Office Visit Hematology/Oncology at [address] [phone] Adrianne Ramon MD [facility] [place]OLOG[place] [address] Yael Merlos APRN [facility] [place] [address] 10/03/2023 9:30 AM EDT Infusion Hematology Oncology at [address] [phone] 10/10/2023 8:30 AM EDT Infusion Hematology Oncology at [address] [phone] documented as of this encounter Procedures Procedure [...] is a Non-reportable exam Micha Nunez MD [facility] FILM LIBRARY ORD ERABLES documented in this encounter Visit Diagnoses Not on filedocumented in this encounter Care Teams Bitumastic Applier Relationship Specialty Start Date End Date Bobby Headley MD [address] [place] [address] PCP - General 01/29/14 11/28/17 documented as of this encounter
--- OUTSIDE RECORDS SUMMARY | 2023-09-19 02:37 | XMS_ITS | Encounter Summary ---
Author Organization [facility] [place] [address] Care Team Providers Care Helium Arc Welder Name Role Phone Bobby Headley MD Primary Care Provider [phone] Encounter Details Date Type Department Care Team (Late st Contact Info) Description 09/28/2014 Abstract Radiation Oncology at [address] [phone] Christine Garcia RN Social History Tobacco Use [...] AM EDT Infusion Hematology Oncology at [address] [phone] 09/21/2023 9:30 AM EDT Office Visit Hematology [place] [phone] Micha Givens Jr., MD [facility] HEMATOLOGY [place] [address] 09/21/2023 10:30 AM EDT Clinical Support Hematology [place] [phone] Danii Her RN 09/26/2023 8:30 AM EDT Infusion Hematology Oncology at [address] [phone] 10/03/2023 9:00 AM EDT Office Visit Hematology/Oncology at [address] [phone] Adrianne Ramon MD [facility] DR HEMATOLOGY [place] [address] Yael Merlos APRN [facility] HEMATOLOGY [place] [address] 10/03/2023 9:30 AM EDT Infusion Hematology Oncology at [address] [phone] 10/10/2023 8:30 AM EDT Infusion Hematology Oncology at [address] [phone] documented as of this encounter Visit Diagnoses Not on filedocumented in this encounter Care Teams Helium Arc Welder Relationship Specialty Start Date End Date Bobby Headley MD [address] [place] [address] PCP - General 01/29/14 11/28/17 documented as of this encounter
--- OUTSIDE RECORDS SUMMARY | 2023-09-19 02:37 | XMS_ITS | Encounter Summary ---
[place] [address] Care Team Providers Care Microarray Specialist Name Role Phone Bobby Headley MD Primary Care Provider [phone] Encounter Details Date Type Department Care Team (Late st Contact Info) Description 09/29/2014 12:00 PM EDT Office Visit Radiation Oncology at [address] [phone] Nitin Stauffer MD [address] [place] [address] DR RADIATION ONCOLOGY [place], [place] [id number] Cancer of prostate with intermediate recurrence risk [...] slowed by medications such as Viagra. Another long-term but potentially serious side effect is the [...] a prostate MRI which we do at [facility], that allows us to better see your [...] [facility] here in our [facility] clinic, typically 1-2 weeks after the [...] do not hesitate to call me at [phone] with any other questions or concerns you have. Although our normal business hours are M-F 8AM-5PM, I am on- site here in [facility] Wednesdays through Fridays. On Mondays and Tuesdays, your nurse Christine Fernando will be here and can answer any questionsyou might have, or help you get in touch with me. A Radiation Oncology doctor is also industry consultant after our normal hours and on weekends for urgent questions or concerns related to radiation treatments that can not wait until normal business hours. To reach the on-call doctor after-hours, just call and have the fabrication machine operator page the Radiation Oncologist industry consultant. And, as always, if you experience any [...] injury 7. Uncontrollable bleeding Nitin Ramirez MD Dairy Helpervice president of human resources Radiation Oncology [facility] documented in this encounter Progress Notes * Nitin Stauffer MD - 09/29/2014 12:00 PM EDT Radiation Oncology New Patient Consultation [facility] Reason for Consultation: intermediate risk prostate cancer [...] here at [facility]. 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 Estimated travel time by the patient to [facility] is 10 minutes, one-way. KPS: 100 Smoking: [...] with either Dr. Nunezor Dr. Stubbs at [facility]. However, he was quite clear that the [...] yes ADVANCED DIRECTIVE: yes, on file at [facility] ([facility]) PAIN ASSESSMENT: [0] out of 10 *eD-H [...] AM EDT Infusion Hematology Oncology at [address] [phone] 09/21/2023 9:30 AM EDT Office Visit Hematology [place] [address] Micha Givens Jr., MD [facility] [place] [address] 09/21/2023 10:30 AM EDT Clinical Support Hematology [place] [address] Danii Her RN 09/26/2023 8:30 AM EDT Infusion Hematology Oncology at [address] [phone] 10/03/2023 9:00 AM EDT Office Visit Hematology/Oncology at [address] [phone] Adrianne Ramon MD [facility] DR [place] [address] Yael Merlos APRN [facility] DR [place] [address] 10/03/2023 9:30 AM EDT Infusion Hematology Oncology at [address] [phone] 10/10/2023 8:30 AM EDT Infusion Hematology Oncology at [address] [phone] documented as of this encounter Procedures Procedure [...] prostate documented in this encounter Care Teams Microarray Specialist Relationship Specialty Start Date End Date Bobby Headley MD [address] [place] [address] PCP - General 01/29/14 11/28/17 documented as of this encounter
--- OUTSIDE RECORDS SUMMARY | 2023-09-19 02:37 | XMS_ITS | Encounter Summary ---
Author Organization [facility] Address [facility] [place] [address] Care Team Providers Care Thermal Technician Name Role Phone Bobby Headley MD Primary Care Provider [phone] Reason for Visit * Reason Comments Prostate Cancer Lupron 22.5 mg into left buttocks Encounter Details Date Type Department Care Team (Late st Contact Info) Description 09/29/2014 1:00 PM EDT Infusion Hematology Oncology at [address] [phone] CLINIC, DR MOSQUEDA HEM/ONC William German MD [facility] [place] [address] Malignant neoplasm of prostate Discharge Disposition: Home [...] AM EDT Infusion Hematology Oncology at [address] [phone] 09/21/2023 9:30 AM EDT Office Visit Hematology [place] [address] Micha Givens Jr., MD [facility] DR [place] [address] 09/21/2023 10:30 AM EDT Clinical Support Hematology [place] [address] Danii Her RN 09/26/2023 8:30 AM EDT Infusion Hematology Oncology at [address] [phone] 10/03/2023 9:00 AM EDT Office Visit Hematology/Oncology at [address] [phone] [facility] DR [place] [address] [facility] [place] [address] 10/03/2023 9:30 AM EDT Infusion Hematology Oncology at [address] [phone] 10/10/2023 8:30 AM EDT Infusion Hematology Oncology at [address] [phone] documented as of this encounter Visit Diagnoses [...] Gluteal documented in this encounter Care Teams Thermal Technician Relationship Specialty Start Date End Date Bobby Headley MD [address] [place] [address] PCP - General 01/29/14 11/28/17 documented as of this encounter
--- OUTSIDE RECORDS SUMMARY | 2023-09-19 02:37 | XMS_ITS | Encounter Summary ---
[place] [address] Care Team Providers Care Primary Care Pediatrician Name Role Phone Bobby Headley MD Primary Care Provider [phone] Encounter Details Date Type Department Care Team (Late Contact Info) Description 09/24/2014 4:13 PM EDT - 09/24/2014 11:59 PM EDT [place] [phone] Tk Vergara MD [address] [place] [address] Discharge Disposition: Home Social History Tobacco Use [...] AM EDT Infusion Hematology Oncology at [address] [phone] 09/21/2023 9:30 AM EDT Office Visit [place] [phone] Micha Givens Jr., MD [facility] DR [place] [address] 09/21/2023 10:30 AM EDT Clinical Support [place] [address] Danii Her RN 09/26/2023 8:30 AM EDT Infusion Hematology Oncology at [address] [phone] 10/03/2023 9:00 AM EDT Office Visit Hematology/Oncology at [address] [phone] Adrianne Ramon MD [facility] DR [place] [address] Yael Merlos APRN [facility] DR [place] [address] 10/03/2023 9:30 AM EDT Infusion Hematology Oncology at [address] [phone] 10/10/2023 8:30 AM EDT Infusion Hematology Oncology at [address] [phone] documented as of this encounter Procedures Procedure Name Priority Date/Time Associated Diagnosis Comments SURGICAL PATHOLOGY REPORT Routine 09/24/2014 10:06 AM EDT documented in this encounter Results * Surgical Pathology Report (09/24/2014 10:06 AM EDT) FINAL DIAGNOSIS (AP) ? [facility] ? Provider: ?? TK VERGARA ?? Pt. Name: ?? CHEO MORFIN ? Acc #: ?[id number] ?Pt. ? Col Date: ?? 09/24/2014 ?/Sex: ?1950,(64 years),Male ? Rec Date: ?? 09/25/2014 ?LOC: ?OPW ? SURGICAL PATHOLOGY ? DIAGNOSIS ? CONSULTATION CASE ? Outside slides labeled [id number], collection date 09/01/2014 ? A - Prostatic [...] needle biopsy, right mid apex: ? 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 approximately 45% [...] mid apex: ? Benign prostatic tissue. ? [facility] ? Provider: ?? TK VERGARA ?? Pt. Name: ?? CHEO MORFIN ? Acc #: ?[id number] ?Pt. ? Col Date: ?? 09/24/2014 ?/Sex: [...] description not recorded. ? Whole slide scan: ?[id number]-10 ? GROSS DESCRIPTION ? ([facility]) pathology slide(s) are ? reviewed. ??Refer to Diagnosis and Specimen Submitted for specific case ? information. ? For the full text of the [facility] report(s) please refer to Non-DH ? Documentation Pathology in the electronic health record (eDH). ? CLINICAL INFORMATION ? Specimen Submitted: ? CONSULTATION CASE ? A - 20 slides labeled [id number], collection date 09/01/2014. ? [id number] ? Report to: ? Surgical Pathology Department ? [facility], [facility], 2nd Floor ? [address] ? [place], [place] ??[address] ? 09/28/2014 3:18 PM EDT [facility] Consult Case 09/24/2014 10:0 6 AM EDT 09/24/2014 10:06 AM EDT Tk Vergara MD PATHOLOGY/CYTOLOGY O CLOIN Performing Organization Address City/State/[facility] Co de Phone Number [facility] [place] [address] documented in this encounter Visit Diagnoses Not on filedocumented in this encounter Care Teams Primary Care Pediatrician Relationship Specialty Start Date End Date Bobby Headley MD [address] [place] [address] PCP - General 01/29/14 11/28/17 documented as of this encounter
--- OUTSIDE RECORDS SUMMARY | 2023-09-19 02:37 | XMS_ITS | Encounter Summary ---
[place] [address] Care Team Providers Care Wood Turner Name Role Phone Bobby Headley MD Primary Care Provider [phone] Encounter Details Date Type Department Care Team (Late st Contact Info) Description 09/25/2014 External Results [place] [phone] Provider, Scanning Social History Tobacco Use Types [...] AM EDT Infusion Hematology Oncology at [address] [phone] 09/21/2023 9:30 AM EDT Office Visit Hematology [place] [phone] Micha Givens Jr., MD [facility] DR HEMATOLOGY [place] [address] 09/21/2023 10:30 AM EDT Clinical Support Hematology [place] [phone] Danii Her RN 09/26/2023 8:30 AM EDT Infusion Hematology Oncology at [address] [phone] 10/03/2023 9:00 AM EDT Office Visit Hematology/Oncology at [address] [phone] Adrianne Ramon MD [facility] DR HEMATOLOGY [place] [address] Yael Merlos APRN [facility] HEMATOLOGY [place] [address] 10/03/2023 9:30 AM EDT Infusion Hematology Oncology at [address] [phone] 10/10/2023 8:30 AM EDT Infusion Hematology Oncology at [address] [phone] documented as of this encounter Procedures Procedure Name Priority Date/Time Associated Diagnosis Comments SURGICAL PATHOLOGY SCAN Routine 09/25/2014 documented in this encounter Results * Scan Doc: Surgical Pathology (09/25/2014) John Vergara MD MEDIA MGR SCAN EXT O RDR/RSLT documented in this encounter Visit Diagnoses Not on filedocumented in this encounter Care Teams Wood Turner Relationship Specialty Start Date End Date Bobby Headley MD [address] [place] [address] PCP - General 01/29/14 11/28/17 documented as of this encounter
--- OUTSIDE RECORDS SUMMARY | 2023-09-19 02:37 | XMS_ITS | Encounter Summary ---
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 The patient has been for 24 years [...] notable for a small left testicle ~ [id number]. There is a tiny firm area palpable [...] AM EDT Infusion Hematology Oncology at [address] [phone] 09/21/2023 9:30 AM EDT Office Visit Hematology [place] [address] Landry Givens Jr., MD [facility] [place] [address] 09/21/2023 10:30 AM EDT Clinical Support Hematology [place] [address] Danii Her RN 09/26/2023 8:30 AM EDT Infusion Hematology Oncology at [address] [phone] 10/03/2023 9:00 AM EDT Office Visit Hematology/Oncology at [address] [phone] Adrianne Ramon MD [facility] DR [place] [address] Yael Merlos, KARLA [facility] [address] [place] [address] 10/03/2023 9:30 AM EDT Infusion Hematology Oncology at [address] [phone] 10/10/2023 8:30 AM EDT Infusion Hematology Oncology at [address] [phone] documented as of this encounter Procedures Procedure [...] ? pm) Patient Info ID #: ? [id number] ?: [birth year] (63 yrs) Name: ? CHEO MORFIN ? Visit Date: 03/04/2014 04:39 pm Performed By Performed By: ?Hannah Wahl RDMS Attending: ? Alexandre OCASIO, Jaime Dumas Referred By: ? LANDRY NUNEZ MD Service(s) Provided ??[facility] - Ultrasound Scrotum and Contents with ?[id number], [id number] ??Vascular - [id number], [id number] Indications ??Evaluate Right testicle hx of testis [...] 03/04/2014 05:00 pm) Patient Info ID #: [id number] : [birth year] (63 yrs) Name: CHEO MORFIN Visit Date: 03/04/2014 04:39 pm Performed By Performed By: Hannah Wahl RDMS Attending: Jaime Schroeder MD Referred By: LANDRY NUNEZ MD Service(s) Provided [facility] - Ultrasound Scrotum and Contents with [id number], [address] Vascular - [id number], [id number] Indications Evaluate Right testicle hx of testis [...] MD HEMATOLOGY ORDERABLE S Performing Organization Address [facility]/State/ZIP Co de Phone Number [facility] * AFP tumor marker (03/04/2014 4:03 PM EST) AFP 2.3 <=8.3 ng/mL [facility] Blood specimen (specimen) 03/04/2014 4:03 PM EST 03/04/2014 4:07 PM EST Narrative Resulting Agency Comment Spec In Lab Landry Nunez MD CHEMISTRY ORDERABLES Performing Organization Address [facility]/ZIP Co de Phone Number [facility] * Beta HCG, quantitative (03/04/2014 4:03 PM EST) Beta hCG Quant <1 0 - 2 mlU/ML [facility] Comment: REFERENCE RANGES NON- FEMALE: ??Less than 5 mIU/mL POSTMENOPAUSAL FEMALE: ??Less than 8 mIU/mL ? -- FEMALES -- Weeks of ? HCG range ??(mIU/mL) ? 3 weeks ? 5.8 - 71.2 ? 4 weeks ? 9.5 - 750 ? 5 weeks ? 217 - 7,138 ? 6 weeks ? 158 - 31,795 ? 7 weeks ? 3,907 - 646,563 ? 8 weeks ? 32,065 - 149,571 ? 9 weeks ? 63,803 - 151,410 ?10 weeks ? 46,509 - 186,977 ?12 weeks ? 27,832 - 210,612 ?14 weeks ? 13,950 - 62,530 ?15 weeks ? 12,039 - 70,971 ?16 weeks ? 9,040 - 56,451 ?17 weeks ? 8,175 - 28,868 ?18 weeks ? 8,099 - 44,176 Blood specimen (specimen) 03/04/2014 4:03 PM EST 03/04/2014 4:07 PM EST Narrative Resulting Agency Comment Spec In Lab Landry Nunez MD CHEMISTRY ORDERABLES [facility] documented in this encounter Visit Diagnoses Diagnosis Testis mass Other specified disorder of male genital organs Testis cancer, right Testis mass Other specified disorder of male genital organs documented in this encounter Care Teams Pigment Pumper Relationship Specialty Start Date End Date Bobby Headley MD [address] [place] [address] PCP - General 01/29/14 11/28/17 documented as of this encounter
[2023-09-19 07:20] LABS: Abs Immature Grans 0.06 10^3/uL (0.0-0.06); HCT 37.9 % (40.0-50.0); HGB 12.5 g/dL (13.5-17.5); MCV 91 fL (80-95); Platelet Count 176 10^3/uL (130-400); RBC 4.16 10^6/uL (4.36-5.78); RDW 14.1 % (11.8-14.1); WBC 9.04 10^3/uL (4.4-10.8)
[2023-09-19 08:06] LABS: Absolute Lymphocyte Count 2.08 10^3/uL (1.2-3.4); Absolute Neutrophil Count 5.24 10^3/uL (1.2-6.7); Atypical Lymphocytes % 3 %
[2023-09-19 08:07] LABS: Absolute Eosinophil Count 0.36 10^3/uL (0.0-0.7); Absolute Monocyte Count 1.36 10^3/uL (0.1-0.8); Diff Comment Manual Differential; RBC Morphology Normal
[2023-09-19 08:16] LABS: ALT 68 U/L (16-63); AST 30 U/L (15-37); Alkaline Phosphatase 176 U/L (46-116); Anion Gap 11.9 mmol/L (3-11); BUN 30 mg/dL (7-18); Bilirubin, Total 0.54 mg/dL (0.2-1.0); CO2 24.1 mmol/L (21.0-32.0); CREATININE 1.6 mg/dL (0.70-1.30); Calcium 8.6 mg/dL (8.5-10.1); Chloride 105 mmol/L (98-107); Estimated GFR 44.65 (mL/min/1.73m2); Ferritin 215 ng/mL (26-388); Glucose 286 mg/dL (74-106); LDH 233 U/L (85-227); Potassium 3.6 mmol/L (3.5-5.1); Sodium 141 mmol/L (136-145); Total Protein 5.9 g/dL (6.4-8.2)
[2023-09-19 15:54] LABS: Uric Acid 5.3 mg/dL (3.5-7.2)
[2023-09-20 10:04] LABS: IgA 100 mg/dL (85-499); IgG 552 mg/dL (610-1616); IgM 123 mg/dL (35-242)
== END 2023-09-19 02:31 | disposition home or self-care (01) ==
LOC: LBO 02:30
PROVIDERS: PCP Family Medicine; Visit Provider Internal Medicine Hematology & Oncology
DX: C83.38 Diffuse large B-cell lymphoma, lymph nodes of multiple sites (principal); C85.98 Non-Hodgkin lymphoma, unspecified, lymph nodes of multiple sites; D50.9 Iron deficiency anemia, unspecified
CPT/HCPCS: 36415; 80053; 82784; 82728; 83615; 84550; 85025

== ENCOUNTER 2023-09-26 02:40 | Outpatient (CLI) | payer MEDICARE, SELFPAY ==
--- OUTSIDE RECORDS SUMMARY | 2023-09-26 02:46 | XMS_ITS | Encounter Summary ---
Author Organization [facility] Address [address] [place] [address] Care Team Providers Care Manager Of Security Name Role Phone Bobby Headley MD Primary Care Provider [phone] Encounter Details Date Type Department Care Team (Late st Contact Info) Description 10/06/2022 Lab Requisition [facility] Pathology & Laboratory Medicine - [facility] [address] [place] [address] Lg Ramírez MD [address] [place] [address] Generalized enlarged lymph nodes Social History [...] B-cell lymphoproliferative disorder. See comment. 12:09 EDT [facility] Comment The results of flow cytometry are those of involvement by a lymphoproliferative disorder of B-cell lineage expressing surface lambda light chains. The immunophenotypic profile is non-specific.. Cell size, as assessed by light scatter criteria, suggests a large B-cell lymphoma. Correlation of these findings with morphologic and clinical data is essential. Please refer to report [id number] for morphologic details. 3 12:09 [facility] Attestation By the signature below, the attending physician certifies that they have 1) personally conducted a gross and/or microscopic examination of the described specimen(s), and/or personally interpreted the results of laboratory testing of the described specimen(s), and 2) personally rendered or confirmed the above diagnosis. 3 12:09 [facility] at 1209 Clinical History 72 yo male with massive LAD (cervical/tongue/ret rophar.) 3 12:09 [facility] Description The specimen [...] CD4+ and CD8+ subsets represented. 3 12:09 [facility] Flow Markers CD10, CD19, CD20, CD3, CD4, CD45, CD5, CD8, [place], and Lambda 3 12:09 [facility] FDA Disclaimer This test was developed and its performance characteristics determined by the Department of Pathology and Laboratory Medicine, [facility], [place], [place] It has not been cleared or [...] complexity clinical laboratory testing. 3 12:09 EDT [facility] Sample Analyzed Date and Time 10/06/22 12:30 3 12:09 EDT [facility] Scanned Images 3 12:09 EDT [facility] Tissue STRUCTURE OF ROOT OF TONGUE / Unknown 10/05/2022 8:00 EDT 10/06/2022 9:32 EDT Lg Ramírez MD PATHOLOGY ORDERABLES [facility] [address] [place] [address] documented in this encounter Visit Diagnoses Diagnosis Generalized enlarged lymph nodes Enlargement of lymph nodes documented in this encounter Care Teams Manager Of Security Relationship Specialty Start Date End Date Bobby Headley MD [address] [place] [address] PCP - General 01/18/12 documented as of this encounter
--- OUTSIDE RECORDS SUMMARY | 2023-09-26 02:46 | XMS_ITS | Encounter Summary ---
Author Organization [facility] Address [address] [place] [address] Care Team Providers Care Garden Tractor Mechanic Name Role Phone Bobby Headley MD Primary Care Provider [phone] Encounter Details Date Type Department Care Team (Late st Contact Info) Description 10/06/2022 Lab Requisition [facility] Pathology & Laboratory Medicine - [facility] [address] [place] [address] Lg Ramírez MD [address] [place] [address] Generalized enlarged lymph nodes Social History [...] Name Priority Date/Time Associated Diagnosis Comments NON CHILD DEVELOPMENT CONSULTANT/FNA CYTOLOGY Today 10/05/2022 8:00 EDT Generalized enlarged lymph nodes documented in this encounter Results * NON CHILD DEVELOPMENT CONSULTANT/FNA CYTOLOGY (10/05/2022 8:00 EDT) Note to Patient The following pathology results have been interpreted by your pathologist and may be available to you before your health provider has had the opportunity to review them. Please allow time for your provider to receive these results and explore management options, if applicable. 10/09/2022 11:35 EDT [facility] Final Diagnosis A. LYMPH NODE, NECK, LATERALITY NOT SPECIFIED, ULTRASOUND-GUIDED FINE-NEEDLE ASPIRATION: - Mixed lymphoid population present, cannot exclude lymphoproliferative disorder. See comment. - Negative for metastatic carcinoma. 10/09/2022 11:35 [facility] Diagnosis Comment The specimen consists of a single thin prep slide with a mixed population lymphocytes. A lymphoproliferative disorder cannot be excluded based on this specimen alone. Correlation with the concurrent flow cytometry report ([id number]) and surgical biopsy specimen ([id number]) is essential. 10/09/2022 11:35 [facility] Attestation By the signature below, the attending physician certifies that they have personally conducted a gross and/or microscopic examination of the described specimens and rendered or confirmed the above diagnosis. 10/09/2022 11:35 [facility] at 1135 Clinical History Massive LAD; prostate cancer; R59.1 10/09/2022 11:35 [facility] Gross Description A. One vial of CytoLyt was received and processed by selective cellular enhancement technique. 10/09/2022 11:35 [facility] Performing Lab [facility] 10/09/2022 11:35 [facility] Scanned Images 10/09/2022 11:35 [facility] Fine Needle Aspirate ENTIRE LYMPH NODE / Unknown 10/05/2022 8:00 EDT 10/06/2022 6:21 EDT Lg Ramírez MD PATHOLOGY ORDERABLES [facility] [address] [place] [address] documented in this encounter Visit Diagnoses Diagnosis Generalized enlarged lymph nodes Enlargement of lymph nodes documented in this encounter Care Teams Garden Tractor Mechanic Relationship Specialty Start Date End Date Bobby Headley MD [address] [place] [id number] PCP - General 01/18/12 documented as of this encounter
--- OUTSIDE RECORDS SUMMARY | 2023-09-26 02:46 | XMS_ITS | Encounter Summary ---
Author Organization [place] [address] Care Team Providers Care Portrait Studio Photographer Name Role Phone Frederick Meade MD Primary Care Provider [phone] Reason for Visit * Treatment/Therapy Plan Authorization (Routine) - Authorized Specialty Diagnoses / Procedures Referred By Contac t Referred To Contact Hematology and Oncology Diagnoses Diffuse large B-cell lymphoma of lymph nodes of multiple regions Adrianne Ramon MD [facility] HEMATOLOGY AND [place] [address] Stj Hem Onc Infusion [address] [place] [address] Referral ID Status Reason Start Date Expiration Date V isits Requested Visits Authorized [id number] Authorized 09/12/2023 09/11/2024 99 99 Encounter Details Date Type Department Care Team (Late st Contact Info) Description 09/26/2023 8:30 AM EDT Infusion Hematology Oncology at [address] [address] Social History Tobacco Use Types [...] Care Team (Late st Contact Info) Description 10/03/2023 9:00 AM EDT Office Visit Hematology/Oncology at [address] [address] Adrianne Ramon MD [facility] HEMATOLOGY AND [place] [address] Yael Merlos APRN [facility] HEMATOLOGY AND [place] [address] 10/03/2023 9:30 AM EDT Infusion Hematology Oncology at [address] [address] 10/10/2023 8:30 AM EDT Infusion Hematology Oncology at [address] [address] 10/10/2023 2:45 PM EDT Appointment XRay at [address] [place] [address] Micha Givens Jr., MD [facility] HEMATOLOGY [place] [address] 10/10/2023 3:00 PM EDT Appointment [place] [address] 10/10/2023 3:30 PM EDT Appointment [place] [address] 10/11/2023 8:30 AM EDT Infusion Hematology Oncology at [address] [phone] documented as of this encounter Visit Diagnoses Not on filedocumented in this encounter Care Teams Portrait Studio Photographer Relationship Specialty Start Date End Date Frederick Meade MD [address] [place] [address] PCP - General Family Medicine 11/29/17 documented as of this encounter
--- OUTSIDE RECORDS SUMMARY | 2023-09-26 02:46 | XMS_ITS | Encounter Summary ---
Author Organization [facility] Address [place] [id number] Care Team Providers Care Adult Education Professional Name Role Phone Frederick Meade MD Primary Care Provider [phone] Reason for Visit * Consultation (Routine) - Authorized Specialty Diagnoses / Procedures Referred By Contdamir t Referred To Contact Diagnoses 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 Pre-op testing Micha Givens Jr., MD [facility] [place] [address] [facility] [place] [address] Referral ID Status Reason Start Date Expiration Date Visits Requested Visits Authorized [id number] Authorized Continuity of Care 09/21/2023 09/20/2024 1 1 Encounter Details Date Type Department Care Team (Late st Contact Info) Description 09/25/2023 10:00 AM EDT Telephone Hematology [place] [phone] Elva Sutherland RD [facility] [place] [address] Social History Tobacco Use Types Packs/Day Years [...] encounter Miscellaneous Notes * Telephone Encounter - Elva Sutherland, RD - 09/25/2023 9:01 AM EDT [facility] BMT Pretransplant NutritionTeaching Pt: Cheo Freire HPI: Pt is 73 yo male with DLBCL who is a candidate for CAR T therapy. He is eating well and has lost weight intentionally in an effort to improve his diabetes. He states he is not taking any diabetes meds at this time. No concerns from a nutrition standpoint for CAR T. Patient Active Problem List Diagnosis Code Malignant neoplasm of prostate C61 Gout M10.9 Anemia, iron deficiency D50.9 Diffuse large B-cell lymphoma of lymph nodes of multiple regions C83.38 Abnormal echocardiogram R93.1 Estimated body mass index is 31.83 kg/m?? as calculated from the following: Height as of 09/21/23: 170.1 cm (5' 6.97). Weight as of 09/21/23: 92.1 kg (203 lb 0.7 oz). Wt Readings from Last 3 Encounters: 09/21/23 92.1 kg (203 lb 0.7 oz) 09/19/23 92.3 kg (203 lb 6.4 oz) 09/12/23 92.1 kg (203 lb) Wt Hx: 190# new weight, 203# is his UBW Meds: prednisone Labs: noted Intake: Has your food intake changed over the past month? Has changed diet to improve his diabetes Nausea? no Vomiting? BM Swallowing issues (choking, coughing) no Taste/smell changes Mouth sores? Heartburn? Dentition Are you lactose intolerant? no Drink alcohol? No (once in a while a beer) Drink nutrition supplements? No Ever used TF/TPN? No Who will be preparing your food: Do you follow any special diet: cut back Do you exercise on a regular basis?: stationary bike, most days Has your Exercise level declined?: Are you currently taking: MVI/mineral? no Herbal supplement? no Antioxidants (Vit C, E, Beta Carotene, selenium) no PMH Do you have diabetes? Yes: no meds (exercise and diet) Plan: Met briefly with pt before BMT to introduce myself as part of the outpatient team. We discussed food safety guidelines/precautions for the immunocompromised for when the pt is to be discharged. For patients undergoing autoBMT, we recommend following these guidelines for the first 3months. -- Raw undercooked meat (game included), fish, shellfish, poultry, eggs, sausage, and le. -- Raw tofu, unless pasteurized or aseptically packaged -- Deli meats (including salami, bologna, hot dogs, ham) unless heated until steaming -- Refrigerated smoked seafood (lox or kippered, nova-style, or smoke or fish jerky unless contained in a cooked dish) and pickled fish -- Unpasteurized milk and raw milk products, nonpasteurized cheese and unpasteurized yogurt --Blue-veined cheeses including blue, gorgonzola, Roquefort, Stilton -- Uncooked, unpasteurized soft cheeses including brie, camembert, feta, cheatham's -- Eritrean style soft cheeses including queso francisco, and queso fresco -- Pashto containing chili pepper or other uncooked vegetables -- Fresh salad dressings (stored in grocer's refrigerated case) containing raw egg or contraindicated cheeses -- Unwashed raw and frozen fruits and vegetables and those with visible mold; all raw sprouts -- Nuts should be roasted out of the shell. Not roasted in the shell as mold can be present. -- Unpasteurized commercial fruit and veg juices -- Water sources: city water (goes through filtration) Live in apartment building - Bottled water and well water: Rec following CDC guidelines re: water safety for well water and bottled water: --https://www.cdc.gov/healthywater/drinking/bottled/index.html --Options for BMT patient who wishes to use well water include filtration, distillation, boiling --https://www.cdc.gov/healthywater/drinking/hreh-yzjcp-ijpafuumy/household_water _treatment.html --ht tps://www.cdc.gov/healthywater/pdf/drinking/household_water_treatment.pdf --https://www.cdc.gov/healthywater/drinking/xonamhwm-ekubo-xuh.html#how_bwa -Well water must be boiled for 1 minutes and consumed w/in 48 hours. Level of comprehension was appears to be sound based upon pt questions and responses. Discussed likelihood of increased protein and calorie needs following Allogeneic transplant and encouraged increasing snacks and focus on nutrient dense foods and beverages to help meet nutritional Would consider MVM without Fe should PO intake become limited. Given low levels seen in BMT population, please consider checking 25OH Vitamin D at future lab draw. Educational material provided: [facility]'s Food Safety Guidelines for the Patient with Decreased Immune Function Pt is aware that s/he will be followed upon discharge and will re-evaluate at that time. I have provided the pt with my contact information should s/he have further questions in the interim. Thank you for this consult. documented in this encounter Plan of Treatment Upcoming Encounters Date Type Department Care Team (Late st Contact Info) Description 09/26/2023 8:30 AM EDT Infusion Hematology Oncology at [address] [phone] 10/03/2023 9:00 AM EDT Office Visit Hematology/Oncology at [address] [address] Adrianne Ramon MD [facility] [place] [address] Yael Merlos APRN [facility] HEMATOLOGY [place] [address] 10/03/2023 9:30 AM EDT Infusion Hematology Oncology at [address] [address] 10/10/2023 8:30 AM EDT Infusion Hematology Oncology at [address] [address] 10/10/2023 2:45 PM EDT Appointment XRay at [address] [place] [address] Micha Givens Jr., MD [facility] [place] [address] 10/10/2023 3:00 PM EDT Appointment Non-[place] [address] 10/10/2023 3:30 PM EDT Appointment [place] [address] 10/11/2023 8:30 AM EDT Infusion Hematology Oncology at [address] [phone] documented as of this encounter Visit Diagnoses Not on filedocumented in this encounter Care Teams Adult Education Professional Relationship Specialty Start Date End Date Frederick Meade MD [address] [place] [address] PCP - General Family Medicine 11/29/17 documented as of this encounter
--- OUTSIDE RECORDS SUMMARY | 2023-09-26 02:46 | XMS_ITS | Referral Summary ---
Author Organization [facility] Address [address] [place] [address] Care Team Providers Care Hand Pattern Marker Name Role Phone Bobby Headley MD Primary Care Provider [phone] Encounters Date Type Department Care Team Description 09/19/2023 Lab Requisition [facility] Pathology & Laboratory Medicine - [facility] [address] [place] [address] Outr Resulting Lab, Provider from Last 3 Months Social History Tobacco Use Types Packs/Day Years Used Date Smoking Tobacco: Never Assessed Sex and Gender Information Value Date Recorded Sex Assigned at Not on file Gender Identity Not on file Sexual Orientation Not on file Plan of Treatment Not on file Procedures Procedure Name Priority Date/Time Associated Diagnosis Comments IMMUNOGLOBULINS Routine 09/19/2023 7:16 EDT from Last 3 Months Results * (ABNORMAL) IMMUNOGLOBULINS (09/19/2023 7:16 EDT) IgG 552(L) 610 - 1,616 mg/dL 09/20/2023 9:59 EDT [facility] IgA 100 85 - 499 mg/dL 09/20/2023 9:59 EDT [facility] IgM 123 35 - 242 mg/dL 09/20/2023 9:59 EDT [facility] Blood VENOUS BLOOD / Unknown 09/19/2023 7:16 EDT 09/19/2023 16:41 EDT Provider Outr Resulting Lab CHEMISTRY & BLOOD GAS ORDERABLES [facility] [address] [place] [address] from Last 3 Months Care Teams Hand Pattern Marker Relationship Specialty Start Date End Date Bobby Headley MD [address] [place] [address] [address] [place] [address] PCP - General 01/18/12
--- OUTSIDE RECORDS SUMMARY | 2023-09-26 02:46 | XMS_ITS | Encounter Summary ---
Author Organization [facility] Address [address] [place] [address] Care Team Providers Care Weather Stripper Name Role Phone Bobby Headley MD Primary Care Provider [phone] Encounter Details Date Type Department Care Team (Late st Contact Info) Description 06/13/2023 Lab Requisition [facility] Pathology & Laboratory Medicine - [facility] [address] [place], [place] [address] Outr Resulting Lab, Provider Social History Tobacco [...] 610 - 1,616 mg/dL 06/14/2023 11:26 EDT [facility] [place] [facility] IgA 119 85 - 499 mg/dL 06/14/2023 11:26 EDT [facility] IgM 124 35 - 242 mg/dL 06/14/2023 11:26 EDT [facility] [place] [facility] Blood VENOUS BLOOD / Unknown 06/13/2023 10:17 EDT 06/13/2023 17:36 EDT Provider Outr Resulting Lab CHEMISTRY & BLOOD GAS ORDERABLES [facility] [address] [place] [address] documented in this encounter Visit Diagnoses Not on filedocumented in this encounter Care Teams Weather Stripper Relationship Specialty Start Date End Date Bobby Headley MD [address] [phone] PCP - General 01/18/12 documented as of this encounter
--- OUTSIDE RECORDS SUMMARY | 2023-09-26 02:46 | XMS_ITS | Encounter Summary ---
Author Organization [facility] Address [address] [place] [address] Care Team Providers Care Mortgage Manager Name Role Phone Unavailable Primary Care Provider Unavailabl e Encounter Details Date Type Department Care Team (Late st Contact Info) Description 01/17/2012 Results Only [facility] Laboratory Services - [facility] ([facility]) [address] [place], [place] [id number] Andreas Temple MD [address] [place] [address] Social History Tobacco Use Types [...] ? CHEO MORFIN ? Accession #: ? [id number] ? : ? 1950 (Age: 61) ??M [...] specimens (A) and (B) were reviewed. ??(Dr. Lagos)/[facility] Document reviewed and electronically signed by: [...] Temple MD PATHOLOGY ORDERABLES Performing Organization Address City/State/[facility] Co de Phone Number [facility] [address] [place] [address] documented in this encounter Visit Diagnoses Not on filedocumented in this encounter
--- OUTSIDE RECORDS SUMMARY | 2023-09-26 02:46 | XMS_ITS | Encounter Summary ---
Author Organization [facility] Address [address] [place] [address] Care Team Providers Care Support Merchandiser Name Role Phone Bobby Headley MD Primary Care Provider [phone] Encounter Details Date Type Department Care Team (Late st Contact Info) Description 10/11/2022 Lab Requisition [facility] Pathology & Laboratory Medicine - [address] [address] Dedrick Quintanilla MD [address] [facility], Level [address] [place] [address] Encounter for other general examination [...] Caleb Lloyd SEE NOTE 10/16/2022 15:45 EDT [facility] Comment: Test ?Result ?Flag ??Unit ??RefValue [...] Slides, Formalin ??Source ?Tongue ?Tissue ID ? [id number] ?Method ?SEE NOTE ?Locus and probes ? [Strategy;#Nuclei;Class] ?8CEN(D8Z2),8q24.1(MYC),14q32(IGH) ?[DFISH;100;AM] ?8q24.1(5'MYC,3'MYC) ?[BAP;100;AM] ?Probe strategies include: ?DFISH=dual color, double fusion; ?BAP=break-apart probe. ?Scoring Method: Manual ?Probe vendors include: ?AM = [employer] ([place], [place]) ??Additional Information ?Not Reported ?Disclaimer ?SEE NOTE ?Applicable to Analyte Specific Reagent (ASR) and Laboratory ?Developed Tests (LDT). This test was developed and its ?performance characteristics determined by [facility] in a ?manner consistent with CLIA requirements. [...] ? Masha Padilla M.D. ?Test Performed by: ?[facility] ?[address] [place] [address] ?Testing Shaking Shipping: Jose David Lowry M.D. Ph.D.; CLIA# [id number] Tissue TISSUE SPECIMEN / Unknown 10/05/2022 8:00 EDT 10/11/2022 7:41 EDT Dedrick Quintanilla MD CHEMISTRY & BLOOD GA S ORDERABLES Performing Organization Address City/State/[facility] Co de Phone Number [facility] [address] [place] [address] documented in this encounter Visit Diagnoses Diagnosis Encounter for other general examination documented in this encounter Care Teams Support Merchandiser Relationship Specialty Start Date End Date Bobby Headley MD [address] [place] [address] PCP - General 01/18/12 documented as of this encounter
--- OUTSIDE RECORDS SUMMARY | 2023-09-26 02:46 | XMS_ITS | Encounter Summary ---
Author Organization [facility] Address [address] [place] [address] Care Team Providers Care Senior Electronics Technician Name Role Phone Bobby Headley MD Primary Care Provider [phone] Encounter Details Date Type Department Care Team (Late st Contact Info) Description 09/01/2014 Results Only [facility] [phone] Tk Vergara MD [address] [place] [address] Social History Tobacco Use Types Packs/Day Years [...] ? CHEO MORFIN ? Accession #: ? [id number] ? : ? 1950 (Age: 64) ??M [...] = 7 (60% 4) ? - Primary Kingsland pattern: ? Grade 4 ? - Secondary Kings[place] pattern: ? Grade 3 ? - Total [place] score: ? 7 ?? - Total number [...] William 09/03/2014 9:00 AM End of Report [facility] 09/01/2014 18:1 6 EDT 09/02/2014 18:16 EDT Tk Vergara MD PATHOLOGY ORDERABLES [facility] [address] [place] [address] documented in this encounter Visit Diagnoses Not on filedocumented in this encounter Care Teams Senior Electronics Technician Relationship Specialty Start Date End Date Bobby Headley MD [address] [place] [phone] PCP - General 01/18/12 documented as of this encounter
--- OUTSIDE RECORDS SUMMARY | 2023-09-26 02:46 | XMS_ITS | Encounter Summary ---
Author Organization [facility] Address [address] [place] [address] Care Team Providers Care Nurse Practitioner Per Diem Name Role Phone Bobby Headley MD Primary Care Provider [phone] Encounter Details Date Type Department Care Team (Late st Contact Info) Description 03/22/2022 Lab Requisition [facility] Pathology & Laboratory Medicine - [facility] [address] [place], [place] [phone] Outr Resulting Lab, Provider Social History Tobacco [...] PSA <0.1 <=6.5 ng/mL 03/22/2022 23:03 EST [facility] Blood VENOUS BLOOD / Unknown 03/22/2022 9:35 EST 03/22/2022 21:50 EST Narrative [facility] - 03/22/2022 23:03 EST NOTE: Serum PSA concentration should not be interpreted as absolute evidence for the presence or absence of malignant disease. Assayed on Siemens ADVIA Drawn to Scaleaur XPT using chemiluminescent technology.??Values obtained by using different assay methods cannot be used interchangeably. Provider Outr Resulting Lab CHEMISTRY & BLOOD GAS ORDERABLES [facility] [address] [place] [address] documented in this encounter Visit Diagnoses Not on filedocumented in this encounter Care Teams Nurse Practitioner Per Diem Relationship Specialty Start Date End Date Bobby Headley MD [address] [place] [phone] PCP - General 01/18/12 documented as of this encounter
--- OUTSIDE RECORDS SUMMARY | 2023-09-26 02:46 | XMS_ITS | Encounter Summary ---
Author Organization [facility] Address [address] [place] [address] Care Team Providers Care Aircraft Cleaning Supervisor Name Role Phone Bobby Headley MD Primary Care Provider [phone] Encounter Details Date Type Department Care Team (Late st Contact Info) Description 10/06/2022 Lab Requisition [facility] Pathology & Laboratory Medicine - [address] [address] Outr Resulting Lab, Provider Social History Tobacco [...] on filedocumented in this encounter Care Teams Aircraft Cleaning Supervisor Relationship Specialty Start Date End Date Bobby Headley MD [address] [place] [address] PCP - General 01/18/12 documented as of this encounter
--- OUTSIDE RECORDS SUMMARY | 2023-09-26 02:46 | XMS_ITS | Encounter Summary ---
Author Organization [facility] Address [address] [place] [address] Care Team Providers Care Carpet Journeyman Name Role Phone Bobby Headley MD Primary Care Provider [phone] Encounter Details Date Type Department Care Team (Late st Contact Info) Description 10/11/2022 Lab Requisition [facility] Pathology & Laboratory Medicine - [facility] [address] [place], [place] [address] Outr Resulting Lab, Provider Social History Tobacco [...] 610 - 1,616 mg/dL 10/12/2022 9:35 EDT [facility] IgA 182 85 - 499 mg/dL 10/12/2022 9:35 EDT [facility] IgM 233 35 - 242 mg/dL 10/12/2022 9:35 EDT [facility] Blood VENOUS BLOOD / Unknown 10/11/2022 10:55 EDT 10/11/2022 17:38 EDT Provider Outr Resulting Lab CHEMISTRY & BLOOD GAS ORDERABLES [facility] [address] [place] [address] documented in this encounter Visit Diagnoses Not on filedocumented in this encounter Care Teams Carpet Journeyman Relationship Specialty Start Date End Date Bobby Headley MD [address] [place] [address] PCP - General 01/18/12 documented as of this encounter
--- OUTSIDE RECORDS SUMMARY | 2023-09-26 02:46 | XMS_ITS | Clinical Summary ---
Author Organization [facility] [place] [address] Care Team Providers Care Braker Passenger Train Name Role Phone Frederick Meade MD Primary Care Provider [phone] Allergies No known active allergies Medications Medication Sig Dispensed Refills Start Date End Date Status aspirin 81 mg Tablet, Chewable Take 325 mg by mouth daily. Active Ibuprofen 200 [...] diffuse large B-cell lymphoma 09/12/2023 10/03/2023 Active Additional Information Patient not taking.Reported on 09/19/2023 predniSONE (Deltasone) 20 mg tablet Take 5 tablets by mouth daily for 3 days, THEN 4 tablets daily for 3 days, THEN 3 tablets daily for 3 days, THEN 2 tablets daily for 3 days, THEN 1 tablet daily for 3 days. 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 10/10/2022 Anemia, iron deficiency 08/21/2018 Gout 05/31/2017 Malignant neoplasm of prostate 09/01/2014 Encounters Date Type Department Care Team Description 09/26/2023 8:30 AM EDT Infusion Hematology Oncology at [address] [phone] 09/25/2023 10:00 AM EDT Telephone [place] [address] Elva Sutherland, KVNG 09/25/2023 Orders Only [place] [address] Micha Givens Jr., MD Screening for colon cancer; Diffuse large B-cell lymphoma of lymph nodes of multiple regions; Stem cell transplant candidate; Pre-op testing 09/21/2023 10:51 AM EDT - 09/21/2023 11:59 PM EDT Hospital Encounter [place] [address] Diffuse large B-cell lymphoma of lymph nodes of multiple regions; Stem cell transplant candidate; Pre-op testing; Prostate cancer screening; Iron deficiency anemia, unspecified iron deficiency anemia type Discharge Disposition: Home 09/21/2023 10:30 AM EDT Clinical Support [place] [address] Danii Her, RN Diffuse large B-cell lymphoma of lymph nodes of multiple regions 09/21/2023 9:30 AM EDT Office Visit [place] [address] Micha Givens Jr., MD Arrived 09/21/2023 Orders Only [place] [phone] Micha Givens Jr., MD Diffuse large B-cell lymphoma of lymph nodes of multiple regions; Stem cell transplant candidate; Pre-op testing; At high risk for bleeding; Prostate cancer screening; Iron deficiency anemia, unspecified iron deficiency anemia type 09/21/2023 Travel 09/20/2023 Orders Only [place] [address] Micha Givens Jr., MD Diffuse large B-cell lymphoma of lymph nodes of multiple regions 09/19/2023 8:00 AM EDT Infusion Hematology Oncology at [address] [phone] Diffuse large B-cell lymphoma of lymph nodes of multiple regions 09/19/2023 Telephone Hematology/Oncolog y at [address] [phone] Polly Orellana, OSCAR Other (Prednisone taper ) 09/19/2023 Orders Only [place] [phone] Adrianne Ramon MD 09/19/2023 Orders Only [place] [phone] Yael Merlos, CUSTOMER EXPERIENCE INTERN Diffuse large B-cell lymphoma of lymph nodes of multiple regions 09/19/2023 Telephone Hematology/Oncolog y at [address] [phone] Polly Orellana, OSCAR Follow-up (Possible free drug thru [facility]) 09/19/2023 Notes Only Hematology/Oncolog y at [address] [phone] Shelley Cason, FRANCISCO J 09/19/2023 Travel 09/14/2023 Telephone Hematology/Oncolog y at [address] [phone] Brenda Priest RN 09/13/2023 Telephone Hematology/Oncolog y at [address] [phone] Colt Ardon RN Other (Financial paperwork ) 09/12/2023 10:15 AM EDT Office Visit Hematology/Oncolog y at [address] [phone] Adrianne Ramon MD Stearns, Diane M, CUSTOMER EXPERIENCE INTERN Diffuse large B-cell lymphoma of lymph nodes of multiple regions; High risk medication use 09/12/2023 Telephone Hematology/Oncolog y at [address] [phone] Polly Orellana RN New Medication Request (revlimid) 09/12/2023 Telephone Hematology/Oncolog y at [address] [phone] Adrianne Ramon MD 09/12/2023 Travel 09/06/2023 1:00 PM EDT - 09/06/2023 11:59 PM EDT Hospital En[place] [address] Adrianne Ramon MD Discharge Disposition: Home 09/06/2023 12:59 PM EDT Hospital En[place] [address] Adrianne Ramon MD Diffuse large B-cell lymphoma of lymph nodes of multiple regions; Skin nodule Discharge Disposition: Home 09/06/2023 10:15 AM EDT - 09/06/2023 12:58 PM EDT Hospital [place] [address] Adrianne Ramon MD Diffuse large B-cell lymphoma of lymph nodes of multiple regions; Skin nodule Discharge Disposition: Home 09/06/2023 9:48 AM EDT - 09/06/2023 10:14 AM EDT Hospital Encounter [place] [address] Diffuse large B-cell lymphoma of lymph nodes of multiple regions; Skin nodule Discharge Disposition: Home 09/06/2023 Travel 08/22/2023 12:30 PM EDT Office Visit Hematology/Oncolog y at [address] [phone] Adrianne Ramon MD Stearns, Diane M, CUSTOMER EXPERIENCE INTERN Diffuse large B-cell lymphoma of lymph nodes of multiple regions; Skin nodule 08/22/2023 Travel from Last 3 Months Family History Medical [...] Sign Reading Time Taken Comments Blood Pressure 115/90 09/21/2023 9:11 AM EDT Pulse 69 09/21/2023 9:11 AM EDT Temperature 36.7 ??C (98.1 ??F) 09/21/2023 9:11 AM ED T Respiratory Rate 18 09/21/2023 9:11 AM EDT Oxygen Saturation 97% 09/21/2023 9:11 AM EDT Inhaled Oxygen Concentration - - Weight 92.1 kg (203 lb 0.7 oz) 09/21/2023 9:11 A M EDT Height 170.1 cm (5' 6.97) 09/21/2023 9:11 AM ED T Body Mass Index 31.83 09/21/2023 9:11 AM EDT Plan of Treatment Upcoming Encounters Date Type Department Care Team (Late st Contact Info) Description 09/26/2023 8:30 AM EDT Infusion Hematology Oncology at [address] [phone] 10/03/2023 9:00 AM EDT Office Visit Hematology/Oncology at [address] [phone] Adrianne Ramon MD [facility] [place] [address] Yael Merlos APRN [facility] [place] [address] 10/03/2023 9:30 AM EDT Infusion Hematology Oncology at [address] [phone] 10/10/2023 8:30 AM EDT Infusion Hematology Oncology at [address] [phone] 10/10/2023 2:45 PM EDT Appointment XRay at [address] [place] [address] Micha Givens Jr., MD [facility] HEMATOLOGY [place] [address] 10/10/2023 3:00 PM EDT Appointment [place] [phone] 10/10/2023 3:30 PM EDT [place] [phone] 10/11/2023 8:30 AM EDT Infusion Hematology Oncology at [address] [phone] Health Maintenance Due Date Last Done Comments [...] Completed 10/17/2022 Medical Devices Explanted Type Area [facility] Device Identifier Shelf Expiration Date Model / Serial / Lot Port Infusion 8fr Cath Power Injectable Lp 1lum Ct Ti [id number]/17 Implanted:Qty: 1 on 10/17/2022 by Gail Jha PA Explanted:Qty: 1 on 03/29/2023 by Chalo Crews PA IMPLANTS Right: Chest Wall [employer] - CR BARD 03/21/2024 [id number] / / [id number] Procedures Procedure Name Priority Date/Time Associated Diagnosis Comments BLOOD DONOR SEROLOGIC TESTING Routine 09/21/2023 11:14 AM EDT TYPE AND SCREEN VALIDITY Routine 11:14 AM EDT ABORH RECHECK STATUS Routine 09/21/2023 11:14 AM EDT TYPE AND SCREEN ([facility]/MARCELINA) Routine 09/21/2023 11:14 AM EDT 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 Pre-op testing DIRECT ANTIGLOBULIN TEST Routine 11:14 AM EDT DIFFERENTIAL, AUTOMATED STAT 09/21/19 11:14 AM EDT Diffuse large B-cell lymphoma of lymph nodes of multiple regions HEMOGRAM STAT 09/21/2023 11:14 AM EDT Diffuse large B-cell lymphoma of lymph nodes of multiple regions HEMOGLOBIN S Routine 09/21/2023 11:14 AM EDT 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 Pre-op testing IRON AND TIBC Routine 09/21/2023 11:14 AM EDT Iron deficiency anemia, unspecified iron deficiency anemia type CRP, ACUTE INFLAMMATION Routine 09/21/19 11:14 AM EDT 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 Pre-op testing FERRITIN Routine 09/21/2023 11:14 AM EDT 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 Pre-op testing URIC ACID Routine 09/21/2023 11:14 AM EDT 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 Pre-op testing CALCIUM IONIZED SERUM Routine 09/21/2023 11:14 AM EDT 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 Pre-op testing TOXOPLASMA ANTIBODY, IGM Routine 024 11:14 AM EDT 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 Pre-op testing TOXOPLASMA ANTIBODY, IGG Routine 024 11:14 AM EDT 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 Pre-op testing PSA SCREEN Routine 09/21/2023 11:14 AM EDT 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 Pre-op testing Prostate cancer screening PHOSPHORUS Routine 09/21/2023 11:14 AM EDT 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 Pre-op testing MAGNESIUM Routine 09/21/2023 11:14 AM EDT 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 Pre-op testing VARICELLA ZOSTER ANTIBODY, IGG Routine 09/21/2023 11:14 AM EDT 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 Pre-op testing HSV 1 AND 2 IGG ANTIBODIES Routine 09/21/2023 11:14 AM EDT 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 Pre-op testing HGB S SCREEN Routine 09/21/2023 11:14 AM EDT 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 Pre-op testing ALTON-PICKETT VIRUS ANTIBODIES Routine 09/21/2023 11:14 AM EDT 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 Pre-op testing CMV ANTIBODY, IGM Routine 09/21/2023 11: 14 AM EDT 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 Pre-op testing CMV ANTIBODY, IGG Routine 09/21/2023 11: 14 AM EDT 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 Pre-op testing LACTATE DEHYDROGENASE STAT 09/21/2023 11:14 AM EDT Diffuse large B-cell lymphoma of lymph nodes of multiple regions COMPREHENSIVE METABOLIC PANEL STAT 09/21/2023 11:14 AM EDT Diffuse large B-cell lymphoma of lymph nodes of multiple regions CBC (WITH DIFF) STAT 09/21/2023 11:14 AM EDT Diffuse large B-cell lymphoma of lymph nodes of multiple regions URINALYSIS WITH REFLEX CULTURE Routine 09/21/2023 11:11 AM EDT 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 Pre-op testing LAB SCAN 09/19/2023 12:00 AM EDT LAB SCAN 09/19/2023 12:00 AM EDT LAB SCAN 09/19/2023 12:00 AM EDT LAB SCAN 09/19/2023 12:00 AM EDT ECHO SCAN (SCAN) 09/17/2023 12:0 0 AM [...] 09/06/2023 12:28 PM EDT IMMUNOPHENOTYPING FLOW CYTOMETRY (BLOOD) Routine 09/06/2023 12:28 PM EDT FLOW CYTOMETRY REPORT Routine 09/06/2023 11:40 AM EDT IMMUNOPHENOTYPING FLOW CYTOMETRY (BLOOD) Routine 09/06/2023 11:40 AM EDT SURGICAL PATHOLOGY REPORT Routine 2023 11:35 AM EDT CHROMO REPORT ACQUIRED Routine 11:35 AM EDT ANAEROBIC CULTURE Routine 09/06/2023 11: 25 AM EDT TISSUE CULTURE Routine 09/06/2023 11:25 AM EDT FUNGAL STAIN Routine 09/06/2023 11:25 AM EDT FUNGUS CULTURE Routine 09/06/2023 11:25 AM EDT HC FUNGUS CULTURE, MISC SOURCE Routine 09/06/2023 11:25 AM EDT AFB CULTURE Routine 09/06/2023 11:25 AM EDT HC TISSUE [...] lymph nodes of multiple regions Skin nodule LACTATE DEHYDROGENASE STAT 09/06/2023 10:12 AM EDT Diffuse large B-cell lymphoma of lymph nodes of multiple regions Skin nodule COMPREHENSIVE METABOLIC PANEL STAT 09/06/2023 10:12 AM EDT Diffuse large B-cell lymphoma of lymph nodes of multiple regions Skin nodule CBC (WITH DIFF) STAT 09/06/2023 10:12 AM EDT Diffuse large B-cell lymphoma of lymph nodes of multiple regions Skin nodule BLOOD CULTURE STAT 09/06/2023 10:12 AM EDT Diffuse large B-cell lymphoma of lymph nodes of multiple regions Skin nodule COMPREHENSIVE METABOLIC PANEL Routine 08/22/2023 CBC (WITH DIFF) Routine 08/22/2023 HEPATITIS C ANTIBODY STAT 10/17/2022 11:45 AM EDT Diffuse large B-cell lymphoma of lymph nodes of multiple regions from Last 3 Months or Most Recently Relevant to Health Maintenance Results * Blood Donor Serologic Testing (09/21/2023 11:14 AM EDT) Blood VENOUS BLOOD SPECIMEN / Unknown IP Care Team Draw / Unknown 09/21/2023 11:14 AM EDT 09/25/2023 4:30 PM EDT Micha Givens Jr., MD BLOOD BANK LAB ORDER DUONG [facility] [place] [address] * Type and Screen Validity (09/21/2023 11:14 AM EDT) T&S only valid at [facility] LABORATORY Comment:This Type and Screen result is only valid at the [facility] Blood 09/21/2023 11:1 4 AM EDT 09/21/2023 11:31 AM EDT Narrative Resulting Agency Comment Spec In Lab Micha Givens Jr., MD BLOOD BANK LAB ORDER DUONG [facility] [place] [address] * Hemoglobin S Screen (09/21/2023 11:14 AM EDT) HGB S Screen Screen Negative Screen Negative [facility] Blood 09/21/2023 11:1 4 AM EDT 09/21/2023 11:30 AM EDT Narrative Resulting Agency Comment Spec In Lab Micha Givens Jr., MD HEMATOLOGY ORDERABLE S Performing Organization Address [facility] Co de Phone Number [facility] [place] [address] * ABORH Recheck Status (09/21/2023 11:14 AM EDT) ABORH Recheck Order Order Placed [facility] ABORH Type Recheck not performed [facility] Blood 09/21/2023 11:1 4 AM EDT 09/21/2023 11:31 AM EDT Narrative Resulting Agency Comment Spec In Lab Micha Givens Jr., MD BLOOD BANK LAB ORDER DUONG Performing Organization Address City/[facility] Co de Phone Number [facility] [place] [address] * (ABNORMAL) CRP, acute inflammation (09/21/2023 11:14 AM EDT) C-Reactive Protein 52.8(H) <=4.9 mg/L [facility] Blood 09/21/2023 11:1 4 AM EDT 09/21/2023 11:30 AM EDT Narrative Resulting Agency Comment Spec In Lab Micha Givens Jr., MD CHEMISTRY ORDERABLES Performing Organization Address City/[facility]/ZIP Co de Phone Number [facility] [place] [address] * PSA Screen (09/21/2023 11:14 AM EDT) PSA Screen 0.03 0.00 - 4.00 ng/mL [facility] Comment: PLEASE NOTE: The above reference interval is intended for healthy males with an intact prostate. Values within this reference interval may indicate recurrence in men who have undergone radical prostatectomy. This result was generated using a Marc Cruz immunoassay. ??Results obtained from other methods or manufacturers cannot be used interchangeably with this method. Blood 09/21/2023 11:1 4 AM EDT 09/21/2023 11:30 AM EDT Narrative Resulting Agency Comment Spec In Lab Micha Givens Jr., MD CHEMISTRY ORDERABLES Performing Organization Address [facility] Co de Phone Number [facility] [place] [address] * Calcium, Ionized, Serum (09/21/2023 11:14 AM EDT) Ionized Calcium 1.25 1.15 - 1.33 mmol/L [facility] Comment: Note: Total bilirubin higher than 20 mg/dL may lead to falsely low ionized calcium. This test has not been cleared by the [place] FDA. Performance characteristics of this test were determined by [facility] in accordance with CLIA requirements. This laboratory is qualified under CLIA to perform high-complexity testing. Blood 09/21/2023 11:1 4 AM EDT 09/21/2023 11:30 AM EDT Narrative Resulting Agency Comment Spec In Lab Micha Givens Jr., MD CHEMISTRY ORDERABLES Performing Organization Address [facility] Co de Phone Number [facility] [place] [address] * (ABNORMAL) Hemogram (09/21/2023 11:14 AM EDT) Only the most recent of2 resultswithin the time period is included. White Blood Cell 7.3 4.0 - 9.5 x10(3)/[facility] LABORATORY Red Blood Cell 4.20(L) 4.58 - 5.54 x10(6)/ L [facility] Hemoglobin 12.3(L) 13.7 - 16.5 g/dL [facility] Hematocrit 38.4(L) 40.5 - 48.5 % [facility] Mean Cell Volume 91.4 82.9 - 93.1 fL [facility] Mean Cell Hemoglobin 29.3 27.5 - 32.1 pg [facility] Mean Cell Hemoglobin Concentration 32.0 32.0 - 35.7 g/dL [facility] Platelet 152 145 - 357 x10(3)/[facility] LABORATORY RDW Standard Deviation 48.4(H) 36.0 - 45.0 [facility] LABORATORY RDW coefficient of variation 14.5(H) 11.4 - 13.8 % [facility] Mean Platelet Volume 11.5 7.6 - 12.9 fL [facility] NRBC% auto 0.0 % [facility] NRBC Absolute 0.000 0.000 - 0.000 x10(3)/[facility] LABORATORY Blood 09/21/2023 11:1 4 AM EDT 09/21/2023 11:30 AM EDT Narrative Resulting Agency Comment Spec In Lab Micha Givens Jr., MD HEMATOLOGY ORDERABLE S [facility] [place] [address] * (ABNORMAL) Differential, Automated (09/21/2023 11:14 AM EDT) Only the most recent of2 resultswithin the time period is included. Neutrophil % 90.8 % [facility] LAB[facility] Neutrophil Absolute 6.59(H) 1.70 - 6.10 x10(3)/[facility] LABORATORY Lymph % 5.1 % [facility] Lymphocytes Abs 0.4(L) 0.9 - 3.2 x10(3)/mc L [facility] Monocyte % 3.0 % [facility] Monocyte Abs 0.2(L) 0.3 - 0.9 x10(3)/mc L [facility] Eos % 0.4 % [facility] Eosinophils Abs 0.0 0.0 - 0.4 x10(3)/ L [facility] Basophil % 0.1 % [facility] Baso Absolute 0.0 0.0 - 0.1 x10(3)/ L [facility] Immature Gran % 0.60 % [facility] Comment: Immature granulocytes(IG's)percentage and absolute count will include metamyelocytes, myelocytes, and promyelocytes. Blood smears from CBCs yielding IG's will be scanned manually for concordance. If this scan disagrees with the automated IG or if promyelocytes are noted, a manual differential will be performed. Immature Gran Absolute 0.04 0.00 - 0.04 x10(3)/mc L [facility] Blood 09/21/2023 11:1 4 AM EDT 09/21/2023 11:30 AM EDT Narrative Resulting Agency Comment Spec In Lab Micha Givens Jr., MD HEMATOLOGY ORDERABLE S [facility] [place] [address] * HSV 1 and 2 IgG Antibodies (09/21/2023 11:14 AM EDT) HSV Type 1 Ab, IgG Negative Negative [facility] HSV Type 2 Ab, IgG Negative Negative [facility] Blood 09/21/2023 11:1 4 AM EDT 09/21/2023 1:04 PM EDT Narrative Resulting Agency Comment Spec In Lab Micha Givens Jr., MD IMMUNOLOGY ORDERABLE S Performing Organization Address City/[facility]/ZIP Co de Phone Number [facility] [place] [address] * (ABNORMAL) Alton-Pickett Virus Antibodies (09/21/2023 11:14 AM EDT) EBV (VCA) IgG Ab Positive(A) Negative M BRISA [facility] EBV (VCA) IgM Ab Negative Negative MAR Y [facility] EBNA Antibodies Positive(A) Negative MA RY [facility] EBV Interpretation Past EBV infection. [facility] Comment: In most populations, at least 90% of the adult population will have been infected with EBV some time in the past and therefore, will be positive for anti-VCA/IgG and anti-EBNA. Antibodies to EBNA develop 6-8 weeks after primary infection and remain present for life. Presence of VCA/IgM antibodies indicates recent primary infection with EBV. Blood 09/21/2023 11:1 4 AM EDT 09/21/2023 1:04 PM EDT Narrative Resulting Agency Comment Spec In Lab Micha Givens Jr., MD IMMUNOLOGY ORDERABLE S Performing Organization Address [facility] Co de Phone Number [facility] [place] [address] * CMV Antibody, IgM (09/21/2023 11:14 AM EDT) Pathologist [facility] CMV IgM Negative Negative [facility] Blood 09/21/2023 11:1 4 AM EDT 09/21/2023 1:04 PM EDT Narrative Resulting Agency Comment Spec In Lab Micha Givens Jr., MD IMMUNOLOGY ORDERABLE S Performing Organization Address [facility]/ZIP Co de Phone Number [facility] [place] [address] * (ABNORMAL) Iron and TIBC (09/21/2023 11:14 AM EDT) Pathologist [facility] Iron 39(L) 45 - 160 mcg/dL [facility] TIBC 255 250 - 450 mcg/dL [facility] Iron Saturation 15(L) 20 - 50 % [facility] Blood 09/21/2023 11:1 4 AM EDT 09/21/2023 11:30 AM EDT Narrative Resulting Agency Comment Spec In Lab Micha Givens Jr., MD CHEMISTRY ORDERABLES Performing Organization Address City/[facility]/ZIP Co de Phone Number [facility] [place] [address] * Toxoplasma Antibody, IgM (09/21/2023 11:14 AM EDT) Toxoplasma Antibody IgM Negative Negative [facility] Blood 09/21/2023 11:1 4 AM EDT 09/21/2023 1:04 PM EDT Narrative Resulting Agency Comment Spec In Lab Micha Givens Jr., MD IMMUNOLOGY ORDERABLE S Performing Organization Address City/[facility]/ZIP Co de Phone Number [facility] [place] [address] * Toxoplasma Antibody, IgG (09/21/2023 11:14 AM EDT) Toxoplasma Antibody IgG Negative Negative [facility] Blood 09/21/2023 11:1 4 AM EDT 09/21/2023 1:04 PM EDT Narrative Resulting Agency Comment Spec In Lab Micha Givens Jr., MD IMMUNOLOGY ORDERABLE S Performing Organization Address City/[facility]/ZIP Co de Phone Number [facility] [place] [address] * CMV Antibody, IgG (09/21/2023 11:14 AM EDT) CMV IgG Negative Negative [facility] Blood 09/21/2023 11:1 4 AM EDT 09/21/2023 1:04 PM EDT Narrative Resulting Agency Comment Spec In Lab Micha Givens Jr., MD IMMUNOLOGY ORDERABLE S [facility] [place] [address] * Type and screen ([facility] (09/21/2023 11:14 AM EDT) ABORH Type O NEGATIVE [facility] Patient BB History Not Found [facility] Expires at [id number] on: 09/24/2023 [facility] Ab Screen Interp Negative [facility] Blood 09/21/2023 11:1 4 AM EDT 09/21/2023 11:14 AM EDT Narrative [facility] [facility] - 09/21/2023 11:14 AM EDT This Type and Screen result is only valid at the [facility] Resulting Agency Comment Spec In Lab Micha Givens Jr., MD BLOOD BANK LAB ORDER DUONG [facility] [place] [address] * Direct antiglobulin test (09/21/2023 11:14 AM EDT) [facility] Negative [facility] 09/21/2023 11:1 4 AM EDT 09/21/2023 11:14 AM EDT Micha Givens Jr., MD BLOOD BANK LAB ORDER DUONG [facility] [place] [address] * Varicella zoster Antibody, IgG (09/21/2023 11:14 AM EDT) Varicella Zoster Antibody IgG Positive Positive [facility] Comment: A positive result for this assay is considered to be an indicator of positive immune status. Blood 09/21/2023 11:1 4 AM EDT 09/21/2023 1:04 PM EDT Narrative Resulting Agency Comment Spec In Lab Micha Givens Jr., MD IMMUNOLOGY ORDERABLE S Performing Organization Address [facility] Co de Phone Number [facility] [place] [address] * Uric acid (09/21/2023 11:14 AM EDT) Uric Acid 5.1 3.5 - 8.5 mg/dL [facility] Blood 09/21/2023 11:1 4 AM EDT 09/21/2023 11:30 AM EDT Narrative Resulting Agency Comment Spec In Lab Micha Givens Jr., MD CHEMISTRY ORDERABLES Performing Organization Address [facility] de Phone Number [facility] [place] [address] * Phosphorus (09/21/2023 11:14 AM EDT) Phosphorus 2.9 2.5 - 4.5 mg/dL [facility] Blood 09/21/2023 11:1 4 AM EDT 09/21/2023 11:30 AM EDT Narrative Resulting Agency Comment Spec In Lab Micha Givens Jr., MD CHEMISTRY ORDERABLES Performing Organization Address [facility] Co de Phone Number [facility] [place] [address] * Magnesium (09/21/2023 11:14 AM EDT) Magnesium 0.80 0.69 - 1.07 mmol/L [facility] Blood 09/21/2023 11:1 4 AM EDT 09/21/2023 11:30 AM EDT Narrative Resulting Agency Comment Spec In Lab Micha Givens Jr., MD CHEMISTRY ORDERABLES Performing Organization Address [facility] Co de Phone Number [facility] [place] [address] * (ABNORMAL) Lactate Dehydrogenase (09/21/2023 11:14 AM EDT) Only the most recent of2 resultswithin the time period is included. Pathologist [facility] Lactate Dehydrogenase 426(H) 110 - 220 unit/L [facility] Blood 09/21/2023 11:1 4 AM EDT 09/21/2023 11:30 AM EDT Narrative Resulting Agency Comment Spec In Lab Micha Givens Jr., MD CHEMISTRY ORDERABLES Performing Organization Address City/[facility] Co de Phone Number [facility] [place] [address] * Ferritin (09/21/2023 11:14 AM EDT) [facility] Ferritin 393 31 - 409 ng/mL [facility] Comment: Please note that as of 01/24/2023, the reference intervals for Ferritin have been updated. Blood 09/21/2023 11:1 4 AM EDT 09/21/2023 11:30 AM EDT Narrative Resulting Agency Comment Spec In Lab Micha Givens Jr., MD CHEMISTRY ORDERABLES Performing Organization Address City/[facility]/ZIP Co de Phone Number [facility] [place] [address] * (ABNORMAL) Comprehensive metabolic panel (non-fasting) (09/21/2023 11:14 AM EDT) Only the most recent of3 resultswithin the time period is included. Pathologist [facility] Glucose 326(H) 65 - 199 mg/dL [facility] Comment:Diabetes: >=200 mg/d L plus symptoms Blood Urea Nitrogen 26(H) 10 - 20 mg/dL [facility] Creatinine 1.16 0.80 - 1.50 mg/dL [facility] Sodium 138 135 - 145 mmol/L [facility] Potassium 4.0 3.5 - 5.0 mmol/L [facility] Comment: Please note: ??Patients with WBC >100,000 may have falsely elevated Potassium levels. ??For accurate Potassium quantification in these patients send serum separator tube (gold top) for subsequent determinations. ??Contact the Clinical Chemistry Laboratory if there are any questions. Chloride 103 98 - 107 mmol/L [facility] Carbon Dioxide 21(L) 22 - 31 mmol/L [facility] Anion Gap 14 5 - 15 mmol/L [facility] Calcium 9.5 8.5 - 10.5 mg/dL [facility] Protein, Total 6.3 6.1 - 8.0 g/dL [facility] Albumin 3.9 3.2 - 5.2 g/dL [facility] Aspartate Aminotransferase 54(H) 0 - 39 unit/L [facility] Alanine Aminotransferase 72(H) 0 - 55 unit/L [facility] Alkaline Phosphatase 202(H) 40 - 130 unit/L [facility] Bilirubin, Total 0.4 0.2 - 1.3 mg/dL [facility] Est Glomerular Filtration Rate 66 >=60 mL/min/1. 73 m?? [facility] Comment: This patient's estimated [...] and symptoms in addition to eGFR. Blood 09/21/2023 11:1 4 AM EDT 09/21/2023 11:30 AM EDT Narrative Resulting Agency Comment Spec In Lab Micha Givens Jr., MD CHEMISTRY ORDERABLES [facility] [place] [address] * Urinalysis with reflex Culture (09/21/2023 11:11 AM EDT) Glucose, Urine Dipstick Negative Negative mg/dL [facility] Protein, Urine Dipstick Negative Negative mg/dL [facility] Bilirubin, Urine Dipstick Negative Negative mg/dL [facility] Comment: Clinical correlation required for positive Urine Bilirubin results as false positive may occur with some drugs and drug related products. If a false positive is suspected a serum total bilirubin should be considered if clinically indicated. Urobilinogen, Urine Dipstick Normal Normal mg/dL [facility] pH, Urn (dipstick) 6.5 5.0 - 8.0 [facility] Blood, Urine Dipstick Negative Negative mg/dL [facility] Ketone, Urine Dipstick Negative Negative mg/dL [facility] Nitrite, Urine Dipstick Negative Negative [facility] Leukocytes, Urine Dipstick Negative Negative [facility] Appearance, Urine Dipstick Clear Clear [facility] Specific Ransom Urine Automated 1.009 1.005 - 1.030 [facility] Color, Urine Dipstick Yellow Yellow [facility] Reflex to Culture No [facility] Clean Catch Urine 09/21/2023 11:11 AM EDT 09/21/2023 11:33 AM EDT Narrative Resulting Agency Comment Spec In Lab Micha Givens Jr., [place] [address] * Scan Doc: Lab (09/19/2023 12:00 AM EDT) Only the most recent of4 resultswithin the time period is included. Narrative 09/19/2023 12:00 AM EDT Ordered by an unspecified provider. Scanning Provider MEDIA MGR SCAN EXT O RDR/RSLT * Scan Doc: Echo (09/17/2023 12:00 AM EDT) Anatomical Region Laterality Modality Cardiac Other Narrative 09/17/2023 12:00 AM EDT Ordered by an unspecified provider. Scanning Provider MEDIA MGR SCAN EXT O RDR/RSLT * NM PET CT Standard Plus Extremities and Head (09/06/2023 2:45 PM EDT) WORKSTATION ID [id number] [facility] Anatomical Region Laterality Modality Positron Emissio n [...] who have questions please contact the health memory care program resident that requested your imaging first. ? Narrative [...] unspecified. TECHNIQUE: Procedure: Following IV injection of 78-bsjgie-0-deoxyglucose (FDG) a standard uptake of approximately 60 [...] unspecified. TECHNIQUE: Procedure: Following IV injection of 31-jumfeu-7-deoxyglucose(FDG) a standard uptake of approximately 60 minutes, [...] patients who have questions please contactthe health memory care program resident that requested your imaging first. Adrianne Ramon MD IMG PET ORDERABL ES * POCT Glucose (09/06/2023 1:06 PM EDT) Only the most recent of2 resultswithin the time period is included. Glucose, POC 98 65 - 199 mg/dL [facility] Comment: Supplemental ranges: <140 mg/dL before meals <180 mg/dL all other times of the day Blood 09/06/2023 1:06 PM EDT 09/06/2023 1:06 PM EDT Adrianne Ramon MD POINT OF CARE TE ST ORDERABLES [facility] [place] [address] * IR Biopsy Lymph Node (Chest/Abdomen/Pelvis) (09/06/2023 [...] period is included. Immunophenotyping Flow See Comment [facility] Comment: When completed by the Pathologist, the Flow Cytometry Report ([id number]) will display under the Pathology Results section within eDH. Other 09/06/2023 12:2 8 PM EDT 09/06/2023 12:47 PM EDT Narrative Resulting Agency Comment Spec In Lab Micha Pearl MD HEMATOLOGY ORDERABLE S [facility] [place] [address] * Flow Cytometry Report (09/06/2023 12:28 PM EDT) Only the most recent of2 resultswithin the time period is included. Flow Cytometry Report [id number] ? Location: 3Z The signing pathologist has (i) examined the relevant preparation(s) for the specimen(s) and (ii) rendered or confirmed the diagnosis(es). . ?Flow Cytometry DIAGNOSIS ? 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 See comment. Electronically signed by: ?Dana OCASIO, Filemon Verified: ??09/10/2023 15:05 ??Hematopathologist Performed at: ??-[facility] [place], [place] [address] School Counsellor: Katherine Lopez MD, FCAP, ??CLIA Certificate: [id number] DISCUSSION The T-lymphocytes , B- lymphocytes and [...] by the Clinical Flow Cytometry Laboratory at [facility]. It has not been cleared or [...] high complexity clinical laboratory testing. SPECIMEN PROCESSING [id number] Cells for immunophenotypic analysis were derived from LEFT AUX LYMPH NODE. CD45 vs side scatter gating was utilized to identify a LYMPHOID analysis region that comprises approximately 95-97% of all cells. The following markers were assessed: CD2, CD3, CD4, CD5, CD7, CD8, CD10, CD19, CD20, CD23, CD38, CD45, CD56, FMC-7, kappa light chain, and lambda light chain. CLINICAL INFORMATION dlbcl [facility] 09/06/2023 12:2 8 PM EDT Micha Pearl MD PATHOLOGY/CYTOLOGY O RDERABLES [facility] [place] [address] * chromo report acquired (09/06/2023 11:35 AM EDT) Cytogenetics Acquired Report Final Report ? [id number] Specimen Type: Fixed Tissue Specimen Condition: 1 H&E and 8 unstained slides, adequate Collection Date/Time: 09/06/2023 11:35 Received Date/Time: 09/11/2023 08:57 Indication: ??Diffuse Large B-Cell Lymphoma ---Summary--- POSITIVE for FISH markers DETECTED below ---Results--- Diffuse Large B-Cell Lymphoma FISH Panel: ?? Three copies of BCL2 locus DETECTED ?? BCL6/3q27, MYC/8q24, MYC-IGH/t(8;14), CCND1-IGH/t(11;14) , and BCL2/18q21 gene rearrangments NOT DETECTED. ---Karyotype--- nuc maria luisa(BCL6x2)[100],( MYCx2)[100],(MYC,I GH)x2[100],(CCND1, IGH)x2[100],(BCL2x 3)[49/100] ---Preparation--- Culture Type: Formalin-fixed paraffin embedded tissue slides FISH Method: ??Interphase FISH ---Interpretation- -- Interphase FISH analysis using dual-color, break-apart probes for BCL6/3q27 rearrangement ([email or web address] shows a signal pattern consistent with a BCL6 rearrangement in 0% of 100 cells. This is within the acceptable reference limits (0-7.4%). Thus, there is no evidence for BCL6/3q27 gene rearrangement. Interphase FISH analysis using dual-color, break-apart probes for MYC/8q24 rearrangement ([employer] shows 0% of 100 cells with a MYC rearrangement signal pattern. This is within acceptable reference limits (0-6.0%). Thus, there is no evidence for MYC/8q24 gene rearrangement. Interphase FISH analysis using dual-color, dual-fusion probes for MYC-IGH/t(8;14)(q2 4;q32) ([employer] shows 0% of 100 cells with a MYC-IGH rearrangement signal pattern. This is within acceptable reference limits (0-3.0%). Thus, there is no evidence for MYC-IGH/t(8;14) gene rearrangement. Interphase FISH analysis using dual-color, dual-fusion probes for CCND1-IGH/t(11;14) (q24;q32) ([employer] shows 0% of 100 cells with an CCND1-IGH rearrangement signal pattern. This is within acceptable reference limits (0-3.0%). Thus, there is no evidence for CCND1-IGH/t(11;14) gene rearrangement. Interphase FISH analysis using dual-color break-apart probes for BCL2/18q21 rearrangement ([employer] shows 0% of 100 cells with BCL2 rearrangement signal pattern. This is within the acceptable reference limits (0-6.0%). Furthermore, a signal pattern consistent with three copies of the BCL2 locus is seen in 49.0% of 100 cells. This is above the acceptable reference limits (0-7.4%). Thus, there is no evidence for BCL2/18q21 gene rearrangement, but there is evidence to support three copies of the BCL2 locus. ---Recommendation- -- Correlation with clinical and pathological studies is suggested. ---Limitations & Disclaimers--- The FISH test was developed and its performance characteristics were determined by the [facility] ([facility] as required by The Clinical Laboratory Improvement Amendments (CLIA? 88) regulations. It has not been cleared or approved for specific uses by the U.S. Food and Drug Administration (FDA). The FDA has determined that such clearance or approval is not necessary. This test is used for clinical purposes. It should not be regarded as investigational or for research. Pursuant to the requirements of CLIA? 88, this laboratory has established and verified the test? s accuracy and precision. The [facility] is certified under the CLIA? 88 as qualified to perform high complexity clinical laboratory testing. Chromosome alterations outside the regions complementary to these DNA FISH probes will not be detected. 09.20.23 (Electronic Signature) Verified By: Channing Ph.D., FAC, Tommy A Clinical Ethylbenzene Converter Operator/Mol ecular Boxing Machine Operator [facility] 09/06/2023 11:3 5 AM EDT 09/11/2023 8:57 AM EDT James Champion DO HEMATOLOGY ORDERABLE S Performing Organization Address City/State/[facility] Co de Phone Number [facility] [place] [address] * (ABNORMAL) Surgical Pathology Report (09/06/2023 11:35 AM EDT) Surgical Pathology Report [id number] ? Location: [facility] The signing pathologist has (i) examined the relevant preparation(s) for the specimen(s) and (ii) rendered or confirmed the diagnosis(es). . 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 B - Left axillary lymph node, biopsy Diagnosis : D iffuse large B-cell lymphoma- NOS. Electronically signed by: ?Filemon Cortez MD Verified: ??09/10/2023 18:38 ??Hematopathologist Performed at: ??-[facility] [place] [place], [place] [address] School Counsellor: Katherine Lopez MD, FCAP, ??CLIA Certificate: [id number] SYNOPTIC THIS RESULT REQUIRES PHYSICIAN/A.P.P. FOLLOW UP [...] lymphoid neoplasms . Blood . 2016. 127 (20):9852-8341. Rafael CP et al . Blood 103:275-282 [...] submitted in 2 cassettes labeled B1-B2. ??CCP(A) [facility] 09/06/2023 11:3 5 AM EDT James Champion DO PATHOLOGY/CYTOLOGY O RDERABLES Performing Organization Address [facility]/ZIP Co de Phone Number [facility] [place] [address] * Anaerobic Culture (09/06/2023 11:25 AM EDT) Anaerobic Culture No anaerobic organisms isolated [facility] Arm 09/06/2023 11:2 5 AM EDT 09/06/2023 12:21 PM EDT Comment:Left Arm Collection versus mass Narrative Resulting Agency Comment Spec In Lab James Champion DO MICROBIOLOGY - GENER AL ORDERABLES Performing Organization Address [facility] Co de Phone Number [facility] [place] [address] * Calcofluor White Stain (09/06/2023 11:25 AM EDT) Calcofluor Stain Calcofluor White Preparation: Negative [facility] Other 09/06/2023 11:2 5 AM EDT 09/06/2023 12:21 PM EDT Comment:Left Arm Collection versus Mass Narrative Resulting Agency Comment Spec In Lab James Champion DO MICROBIOLOGY - GENER AL ORDERABLES Performing Organization Address [facility] Co de Phone Number [facility] [place] [address] * Tissue culture (09/06/2023 11:25 AM EDT) Tissue Culture No growth [facility] Gram Stain Few Neutrophils seen No microorganisms seen. [facility] Arm 09/06/2023 11:2 5 AM EDT 09/06/2023 12:21 PM EDT Comment:Left Arm Collection versus mass Narrative Resulting Agency Comment Spec In Lab James Champion DO MICROBIOLOGY - GENER AL ORDERABLES Performing Organization Address [facility] Co de Phone Number [facility] [place] [address] * Specimen to Pathology (09/06/2023 11:20 AM EDT) Only the most recent of2 resultswithin the time period is included. AP Specimen 09/06/2023 11:2 0 AM EDT 09/06/2023 11:20 AM EDT Narrative [facility] - 09/06/2023 11:20 AM EDT Specimen requisition ordered. ??Separate Pathology report to follow James Champion DO PATHOLOGY/CYTOLOGY O RDERABLES Performing Organization Address [facility] Co de Phone Number [facility] [place] [address] * Cytopathology Non-Gynecological (09/06/2023 10:41 AM EDT) AP Specimen 09/06/2023 10:4 1 AM EDT 09/06/2023 10:41 AM EDT Narrative [facility] - 09/06/2023 10:41 AM EDT Specimen requisition ordered. ??Separate Pathology report to follow Micha Pearl MD PATHOLOGY/CYTOLOGY O RDERABLES Performing Organization Address [facility] Co de Phone Number [facility] [place] [address] * Blood culture (09/06/2023 10:12 AM EDT) Blood Culture No growth at 5 days. [facility] Blood ANTECUBITAL REGION STRUCTURE / Unknown 09/06/2023 10:12 AM EDT 09/06/2023 10:31 AM EDT Comment:Peripheral culture Narrative Resulting Agency Comment Spec In Lab Adrianne Ramon MD MICROBIOLOGY - B LOOD ORDERABLES [facility] [place] [address] * CBC (with Diff) (08/22/2023) White Blood Cell 8.12 Hemoglobin 13.2 Hematocrit 38.4 Platelet 199 ANC 6.02 Blood 08/22/2023 Historical Provider HEMATOLOGY ORDERA BLES * Hepatitis C Antibody (10/17/2022 11:45 AM EDT) Hepatitis C Antibody Negative Negative [facility] Blood 10/17/2022 11:4 5 AM EDT 10/17/2022 12:08 PM EDT Narrative Resulting Agency Comment Spec In Lab Adrianne Ramon MD CHEMISTRY ORDERA BLES [facility] [place] [address] from Last 3 Months or Most Recently Relevant to Health Maintenance Advance Directives Documents on File Type Date Recorded Patient Special Delivery Clerk Expl anation POLST/COLST (Order for Life Sustaining [...] Status decision made by: Patient Care Teams Braker Passenger Train Relationship Specialty Start Date End Date Frederick Meade MD [address] [place] [address] PCP - General Family Medicine 11/29/17
--- OUTSIDE RECORDS SUMMARY | 2023-09-26 02:46 | XMS_ITS | Encounter Summary ---
Author Organization [facility] Address [address] [place] [address] Care Team Providers Care Mushroom Spawn Maker Name Role Phone Unavailable Primary Care Provider Unavailabl e Encounter Details Date Type Department Care Team (Late st Contact Info) Description 12/19/2006 Results Only [facility] [address] [place] [address] Micha Pineda MD [address] [place] [id number] Social History Tobacco Use Types Packs/Day Years [...] ? CHEO MORFIN ? Accession #: ? [id number] ? : ? 1950 (Age: 56) ??M [...] specimen is entirely submitted as (C). ??(Dr. Echavarria[facility] End of Report [facility] 12/19/2006 12/19/2006 15: 40 EDT Micha Pineda MD PATHOLOGY ORDERABLES Performing Organization Address City/State/[facility] Co de Phone Number [facility] [address] [place] [address] documented in this encounter Visit Diagnoses Not on filedocumented in this encounter
--- OUTSIDE RECORDS SUMMARY | 2023-09-26 02:46 | XMS_ITS | Encounter Summary ---
Author Organization [facility] Address [address] [place] [address] Care Team Providers Care Chief Sustainability Officer Name Role Phone Bobby Headley MD Primary Care Provider [phone] Encounter Details Date Type Department Care Team (Late st Contact Info) Description 11/16/2022 Lab Requisition [facility] Pathology & Laboratory Medicine - [facility] [address] [place], [place] [id number] Outr Resulting Lab, Provider Social History Tobacco [...] Salmonella PCR Negative Negative 11/16/2022 23:10 EDT [facility] Shigella/Enteroin vasive E. coli Negative Negative 11/16/2022 23:10 EDT [facility] HN LAB CAMPYLOBACTER PCR Negative Negative 11/16/2022 23:10 EDT [facility] Shiga Toxin PCR Negative Negative 23:10 EDT [facility] Feces SPECIMEN FROM RECTUM / Unknown 11/16/2022 0:35 EDT 11/16/2022 18:28 EDT Provider Outr Resulting Lab MICROBIOLOGY - GENERAL ORDERABLES [facility] [address] [place] [address] documented in this encounter Visit Diagnoses Not on filedocumented in this encounter Care Teams Chief Sustainability Officer Relationship Specialty Start Date End Date Bobby Headley MD [address] [place] [id number] PCP - General 01/18/12 documented as of this encounter
--- OUTSIDE RECORDS SUMMARY | 2023-09-26 02:46 | XMS_ITS | Encounter Summary ---
Author Organization [facility] Address [address] [place] [address] Care Team Providers Care Patient Partner Name Role Phone Bobby Headley MD Primary Care Provider [phone] Encounter Details Date Type Department Care Team (Late st Contact Info) Description 03/11/2021 Lab Requisition [facility] Pathology & Laboratory Medicine - [address] [phone] Outr Resulting Lab, Provider Social History Tobacco [...] 0.0 - 6.5 ng/mL 03/11/2021 21:52 EST [facility] Blood VENOUS BLOOD / Unknown 03/11/2021 12:38 EST 03/11/2021 21:02 EST Narrative [facility] - 03/11/2021 21:52 EST NOTE: Serum PSA concentration should not be interpreted as absolute evidence for the presence or absence of malignant disease. Assayed on Siemens ADVIA Quotefishaur XPT using chemiluminescent technology.??Values obtained by using different assay methods cannot be used interchangeably. Provider Outr Resulting Lab CHEMISTRY & BLOOD GAS ORDERABLES [facility] [address] [place] [address] documented in this encounter Visit Diagnoses Not on filedocumented in this encounter Care Teams Patient Partner Relationship Specialty Start Date End Date Bobby Headley MD [address] [place] [address] [phone] PCP - General 01/18/12 documented as of this encounter
--- OUTSIDE RECORDS SUMMARY | 2023-09-26 02:46 | XMS_ITS | Encounter Summary ---
Author Organization [facility] Address [address] [place] [address] Care Team Providers Care Micro Photographer Name Role Phone Bobby Headley MD Primary Care Provider [phone] Encounter Details Date Type Department Care Team (Late st Contact Info) Description 10/06/2022 Lab Requisition [facility] Pathology & Laboratory Medicine - [facility] [address] [place] [address] Lg Ramírez MD [address] [place] [address] Generalized enlarged lymph nodes Social History [...] Diffuse Large B-Cell Lymphoma. 10/17/2022 13:09 EDT [facility] Addendum electronically signed by Dedrick Quintanilla MD on 10/17/2022 at 1309 Note to Patient The following pathology results have been interpreted by your pathologist and may be available to you before your health provider has had the opportunity to review them. Please allow time for your provider to receive these results and explore management options, if applicable. 10/17/2022 13:09 [facility] Final Diagnosis A. Tongue base, left: -Large B-cell lymphoma, incompletely classified. See comment. 10/17/2022 13:09 [facility] Diagnosis Comment The findings are those of a large B-cell lymphoma that exhibits a non-germinal center immunophenotype and expresses Myc and BCL-2 protein (Double Expressor.) Flow cytometry ([id number]) supports this interpretation. The differential classification of this lesion is diffuse large B-cell lymphoma versus high grade B-cell lymphoma with MYC and BCL-2 rearrangement. Material has been sent to [facility] to assess the status of these genes by FISH and an addendum report with a definitive classification will be issued upon receipt of the result. 10/17/2022 13:09 [facility] Attestation By the signature below, the attending physician certifies that they have 1) personally conducted a gross and/or microscopic examination of the described specimen(s), and/or personally interpreted the results of laboratory testing of the described specimen(s), and 2) personally rendered or confirmed the above diagnosis. 10/17/2022 13:09 [facility] at 1210 Microscopic Description There is a diffuse proliferation of large B-cells below the squamous epithelium. Nuclei are large, oval, and and often contain multiple small nucleoli. Scattered small lymphocytes are present. CD3 (SP7, Thermo Scientific) Background T-cells CD20 (L26, [place]) diffusely positive in Neoplastic B-cells PAX-5 (1EW, Leica) diffusely positive in Neoplastic B-cells CD10 (SP67, [place]) Negative BCL-6 (G/191E/A8, [place]) Positive MUM-1 (MUM1p, Dako) Positive Myc (Y69, Abcam) Positive BCL-2 Oncoprotein (124, [place]) Positive Ki67 (MIB-1) (K2, Leica) Greater than 95% of cells in cycle Cyclin D1(SP4-R, [place]) Negative SAPPHIRE JOSE (DQP3282-M, Leica) Negative. 10/17/2022 13:09 EDT [facility] Clinical History Massive LAD, history of prostate cancer; clinical diagnosis code: R59.1 10/17/2022 13:09 EDT [facility] Gross Description A. Received in formalin labelled with proper patient identification (initials D, D) and left tongue base are multiple pale plasencia irregular soft tissue fragments which measure 0.8 x 0.6 x 0.5 cm in aggregate and are submitted in toto in A1. TAHMINA NELSON(ASCP) 10/06/2022 15:22 10/17/2022 13:09 EDT [facility] Performing Lab [facility] 13:09 EDT [facility] Scanned Images 10/17/2022 13:09 EDT [facility] Tissue TONGUE STRUCTURE / Unknown 10/05/2022 8:00 EDT 10/06/2022 8:28 EDT Lg Ramírez MD PATHOLOGY ORDERABLES [facility] [address] [place] [address] documented in this encounter Visit Diagnoses Diagnosis Generalized enlarged lymph nodes Enlargement of lymph nodes documented in this encounter Care Teams Micro Photographer Relationship Specialty Start Date End Date Bobby Headley MD [address] [place] [id number] PCP - General 01/18/12 documented as of this encounter
--- OUTSIDE RECORDS SUMMARY | 2023-09-26 02:46 | XMS_ITS | Encounter Summary ---
Author Organization [facility] Address [address] [place] [address] Care Team Providers Care Front Office Attendant Name Role Phone Bobby Headley MD Primary Care Provider [phone] Encounter Details Date Type Department Care Team (Late st Contact Info) Description 10/26/2022 Lab Requisition [facility] Pathology & Laboratory Medicine - [address] [phone] Outr Resulting Lab, Provider Social History Tobacco [...] Antigen Detection Negative Negative 10/26/2022 23:03 EDT [facility] Urine URINE / Unknown 10/25/2022 6 :05 EDT 10/26/2022 22:47 EDT Provider Outr Resulting Lab MICROBIOLOGY - GENERAL ORDERABLES [facility] [address] [place] [address] documented in this encounter Visit Diagnoses Not on filedocumented in this encounter Care Teams Front Office Attendant Relationship Specialty Start Date End Date Bobby Headley MD [address] [place] [id number] PCP - General 01/18/12 documented as of this encounter
--- OUTSIDE RECORDS SUMMARY | 2023-09-26 02:46 | XMS_ITS ---
[place] [address] Care Team Providers Care Motor Transport Inspector Name Role Phone Frederick Meade MD Primary Care Provider [phone] Active Problems Problem Noted Date Diagnosed Date Abnormal echocardiogram 11/20/2022 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 10/10/2022 Anemia, iron deficiency 08/21/2018 Gout 05/31/2017 Malignant neoplasm of prostate 09/01/2014 Current Oncology Plans [facility] HEM LYMPHOMA (HEMATOLOGIC MALIGNANCIES) - riTUXimab (WEEKLY)* Plan Start Date:09/19/2023 Plan Provider:Adrianne Ramon MD Linked Problems 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 Treatment Medications Current Day (Day 8 , Cycle 1 - Planned for 09/26/2023) Next Day (Day 15, Cycle 1 - Planned for 10/03/2023) riTUXimab-pvvr (Ruxience) (2 mg/mL) in sodium chloride [...] Treatment Medications Discontinue Reason Plan Provider Cycles [facility] HEM LYMPHOMA (NHL) - R-CHOP (21 DAY) 10/19/19 23 06/22/2023 cycloPHOSphamide (Cytoxan) in sodium chloride 0.9% 250 mL infusionDOXOrubicin (Adriamycin)riTUXimab -pvvr (Ruxience) (2 mg/mL) in sodium chloride 0.9% infusionvinCRIStine (Oncovin) in sodium chloride 0.9% 25 mL infusion Therapy Complete Adrianne Ramon MD 6 of 6 cycles started Radiation Treatments * No radiation treatments are documented for this patient in [facility]. Treatments may have been administered in another [...] Biopsy 09/01/2014 Volume in cc 15 cc [place] grade/score a+b=c 4+3=7-- intermediate risk prostate cancer [...] Potential late effects of treatment(s): Late and senior living effects or radiation therapy to the prostate [...] Findings and based on age. Nutrition--Follow the [employer] Cancer Society Guidelines that include the following: [...] Helpful websites www. cancer. gov National Cancer [place] www.nccn.org National Comprehensive Cancer Network www.canceradvocacy.org National Coalition for Cancer Survivorship www.livestrong.org Livestrong Survivor Care www.acscsn.org Cancer Survivors Network Anna Carr APRN- Radiation Oncology Adapted from [employer] Society of Clinical Oncology 2008 Cancer Treatment Plan Summary Survivorship care provider contacts PLANT BUYER: Anna Carr
--- OUTSIDE RECORDS SUMMARY | 2023-09-26 02:46 | XMS_ITS | Encounter Summary ---
Author Organization [facility] Address [address] [place] [address] Care Team Providers Care Picking Crew Supervisor Name Role Phone Bobby Headley MD Primary Care Provider [phone] Encounter Details Date Type Department Care Team (Late st Contact Info) Description 03/05/2020 Lab Requisition [facility] Pathology & Laboratory Medicine - [address] [phone] Outr Resulting Lab, Provider Social History Tobacco [...] 0.0 - 6.5 ng/mL 03/06/2020 0:[address] [facility] Blood VENOUS BLOOD / Unknown 03/05/2020 7:50 EST 03/05/2020 17:28 EST Narrative [facility] - 03/06/2020 0:00 EST NOTE: Serum PSA concentration should not be interpreted as absolute evidence for the presence or absence of malignant disease. Assayed on Siemens ADVIA BRIVAS LABSaur XPT using chemiluminescent technology.??Values obtained by using different assay methods cannot be used interchangeably. Provider Outr Resulting Lab CHEMISTRY & BLOOD GAS ORDERABLES [facility] [address] [place] [address] documented in this encounter Visit Diagnoses Not on filedocumented in this encounter Care Teams Picking Crew Supervisor Relationship Specialty Start Date End Date Bobby Headley MD [address] [place] [address] [phone] PCP - General 01/18/12 documented as of this encounter
--- OUTSIDE RECORDS SUMMARY | 2023-09-26 02:46 | XMS_ITS | Encounter Summary ---
Author Organization [facility] Address [address] [place] [address] Care Team Providers Care Chipper Machine Operator Name Role Phone Bobby Headley MD Primary Care Provider [phone] Encounter Details Date Type Department Care Team (Late st Contact Info) Description 09/19/2023 Lab Requisition [facility] Pathology & Laboratory Medicine - [address] [phone] Outr Resulting Lab, Provider Social History Tobacco [...] Diagnosis Comments IMMUNOGLOBULINS Routine 09/19/2023 7:16 EDT documented in this encounter Results * (ABNORMAL) IMMUNOGLOBULINS (09/19/2023 7:16 EDT) IgG 552(L) 610 - 1,616 mg/dL 09/20/2023 9:59 EDT [facility] IgA 100 85 - 499 mg/dL 09/20/2023 9:59 EDT [facility] IgM 123 35 - 242 mg/dL 09/20/2023 9:59 EDT [facility] Blood VENOUS BLOOD / Unknown 09/19/2023 7:16 EDT 09/19/2023 16:41 EDT Provider Outr Resulting Lab CHEMISTRY & BLOOD GAS ORDERABLES [facility] [address] [place] [address] documented in this encounter Visit Diagnoses Not on filedocumented in this encounter Care Teams Chipper Machine Operator Relationship Specialty Start Date End Date Bobby Headley MD [address] [place] [address] [phone] PCP - General 01/18/12 documented as of this encounter
--- OUTSIDE RECORDS SUMMARY | 2023-09-26 02:46 | XMS_ITS | Encounter Summary ---
Author Organization [facility] Address [address] [place] [address] Care Team Providers Care Demand Inspector Name Role Phone Bobby Headley MD Primary Care Provider [phone] Encounter Details Date Type Department Care Team (Late st Contact Info) Description 03/10/2019 Lab Requisition [facility] Pathology & Laboratory Medicine - [facility] [address] [place] [address] Unknown, Provider, Social History Tobacco Use Types [...] 0.0 - 6.5 ng/mL 03/11/2019 10:56 EST [facility] Blood VENOUS BLOOD / Unknown 03/10/2019 9:05 EST 03/10/2019 15:40 EST Narrative [facility] - 03/11/2019 10:56 EST NOTE: Serum PSA concentration should not be interpreted as absolute evidence for the presence or absence of malignant disease. Assayed on Siemens ADVIA [employer]aur XPT using chemiluminescent technology.??Values obtained by using different assay methods cannot be used interchangeably. Provider Unknown CHEMISTRY & BLOOD GA S ORDERABLES [facility] [address] [place] [address] documented in this encounter Visit Diagnoses Not on filedocumented in this encounter Care Teams Demand Inspector Relationship Specialty Start Date End Date Bobby Headley MD [address] [place] [id number] PCP - General 01/18/12 documented as of this encounter
--- OUTSIDE RECORDS SUMMARY | 2023-09-26 02:46 | XMS_ITS | Encounter Summary ---
Author Organization [facility] Address [address] [place] [address] Care Team Providers Care Preschool Head Teacher Name Role Phone Unavailable Primary Care Provider Unavailabl e Encounter Details Date Type Department Care Team (Late st Contact Info) Description 08/24/1999 Results Only [facility] - [place] [facility] [address] [place] [address] Micha Pineda MD [address] [place] [phone] Social History Tobacco Use Types Packs/Day Years [...] ? CHEO MORFIN ? Accession #: ? [id number] ? : ? 1950 (Age: 49) ??M ? Collect Date: ? 08/24/1999 ? Location: ? [facility] ? Receive Date: ? 08/24/1999 ? Provider: RHYS PINEDA MD Copy to: MARY HEWITT MD ? Final Pathologic Diagnosis: ? Colon, left transverse (80 cm), biopsies: - Hyperplastic polyp. Document reviewed and electronically signed by: Tresa Waite [facility] Report ??Date: 08/26/1999 16:44 By the signature [...] MD PATHOLOGY ORDERABLES [facility] [address] [place] [address] documented in this encounter Visit Diagnoses Not on filedocumented in this encounter
--- OUTSIDE RECORDS SUMMARY | 2023-09-26 02:46 | XMS_ITS | Clinical Summary ---
Author Organization [facility] Address [address] [place] [address] Care Team Providers Care Mis Specialist Name Role Phone Bobby Headley MD Primary Care Provider Encounters Date Type Department Care Team Description 09/19/2023 Lab Requisition [facility] Pathology & Laboratory Medicine - [facility] [address] [place] [address] Outr Resulting Lab, Provider from Last 3 [...] 2008 Fall Risk Screening 2013 COVID-19 Vaccine ( season) 2022 Procedures Procedure Name Priority Date/Time Associated Diagnosis Comments IMMUNOGLOBULINS Routine 09/19/2023 7:16 EDT from Last 3 Months Results * (ABNORMAL) IMMUNOGLOBULINS (09/19/2023 7:16 EDT) IgG 552(L) 610 - 1,616 mg/dL 09/20/2023 9:59 EDT [facility] IgA 100 85 - 499 mg/dL 09/20/2023 9:59 EDT [facility] IgM 123 35 - 242 mg/dL 09/20/2023 9:59 EDT [facility] Blood VENOUS BLOOD / Unknown 09/19/2023 7:16 EDT 09/19/2023 16:41 EDT Provider Outr Resulting Lab CHEMISTRY & BLOOD GAS ORDERABLES [facility] [address] [place], [place] [address] from Last 3 Months Care Teams Mis Specialist Relationship Specialty Start Date End Date Bobby Headley MD [address] [place] [address] [phone] PCP - General 01/18/12
--- OUTSIDE RECORDS SUMMARY | 2023-09-26 02:46 | XMS_ITS | Encounter Summary ---
Author Organization [facility] Address [address] [place] [address] Care Team Providers Care Rolling Mill Operator Name Role Phone Bobby Headley MD Primary Care Provider [phone] Encounter Details Date Type Department Care Team (Latest Contact Info) Description 09/01/2014 13:19 EDT - 09/01/2014 23:59 EDT Hospital Encounter [address] [address] Unknown, Provider, Discharge Disposition: Home or Self Care Social History Tobacco Use Types Packs/Day Years Used Date Smoking Tobacco: Never Assessed Sex and Gender Information Value Date Recorded Sex Assigned at Not on file Gender Identity Not on file Sexual Orientation Not on file documented as of this encounter Discharge Disposition Disposition Code Departure Means Destination Home or Self Nursing Home documented in this encounter Plan of Treatment Not on file documented as of this encounter Visit Diagnoses Not on filedocumented in this encounter Care Teams Rolling Mill Operator Relationship Specialty Start Date End Date Bobby Headley MD [address] [place] [phone] PCP - General 01/18/12 documented as of this encounter
--- OUTSIDE RECORDS SUMMARY | 2023-09-26 02:46 | XMS_ITS | Encounter Summary ---
Author Organization [facility] [place] [address] Care Team Providers Care Vendor Management Specialist Name Role Phone Frederick Meade MD Primary Care Provider [phone] Encounter Details Date Type Department Care Team (Late st Contact Info) Description 09/25/2023 Orders Only [place] [address] Micha Givens Jr., MD [facility] [address] [place] [address] Screening for colon cancer; Diffuse large B-cell lymphoma of lymph nodes of multiple regions; Stem cell transplant candidate; Pre-op testing Social History Tobacco Use Types Packs/Day Years [...] AM EDT Infusion Hematology Oncology at [address] [phone] 10/03/2023 9:00 AM EDT Office Visit Hematology/Oncology at [address] [address] Adrianne Ramon MD [facility] HEMATOLOGY [place] [address] Yael Merlos APRN [facility] [place] [address] 10/03/2023 9:30 AM EDT Infusion Hematology Oncology at [address] [address] 10/10/2023 8:30 AM EDT Infusion Hematology Oncology at [address] [address] 10/10/2023 2:45 PM EDT Appointment XRay at [address] [place] [address] Micha Givens Jr., MD [facility] [address] HEMATOLOGY [place] [address] 10/10/2023 3:00 PM EDT Appointment Non-[place] [address] 10/10/2023 3:30 PM EDT [place] [address] 10/11/2023 8:30 AM EDT Infusion Hematology Oncology at [address] [phone] documented as of this encounter Visit Diagnoses Diagnosis Screening for colon cancer Special screening for malignant neoplasms, colon 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 Pre-op testing Preoperative examination, unspecified documented in this encounter Care Teams Vendor Management Specialist Relationship Specialty Start Date End Date Frederick Meade MD [address] [place] [address] PCP - General Family Medicine 11/29/17 documented as of this encounter
--- OUTSIDE RECORDS SUMMARY | 2023-09-26 02:47 | XMS_ITS | Encounter Summary ---
Author Organization [facility] [place] [address] Care Team Providers Care Yield Improvement Engineer Name Role Phone Frederick Meade MD Primary Care Provider [phone] Encounter Details Date Type Department Care Team [...] AM EDT Infusion Hematology Oncology at [address] [address] 10/03/2023 9:00 AM EDT Office Visit Hematology/Oncology at [address] [address] Adrianne Ramon MD [facility] HEMATOLOGY [place] [address] Yael Merlos APRN [facility] HEMATOLOGY [place] [address] 10/03/2023 9:30 AM EDT Infusion Hematology Oncology at [address] [address] 10/10/2023 8:30 AM EDT Infusion Hematology Oncology at [address] [address] 10/10/2023 2:45 PM EDT Appointment XRay at [address] [place] [phone] Micha Givens Jr., MD [facility] HEMATOLOGY [place] [address] 10/10/2023 3:00 PM EDT Appointment Non-[place] [phone] 10/10/2023 3:30 PM EDT [place] [address] 10/11/2023 8:30 AM EDT Infusion Hematology Oncology at [address] [address] documented as of this encounter Visit Diagnoses Not on filedocumented in this encounter Care Teams Yield Improvement Engineer Relationship Specialty Start Date End Date Frederick Meade MD [address] [place] [address] PCP - General Family Medicine 11/29/17 documented as of this encounter
--- OUTSIDE RECORDS SUMMARY | 2023-09-26 02:47 | XMS_ITS | Encounter Summary ---
Author Organization [facility] [place] [address] Care Team Providers Care Architectural Sales Consultant Name Role Phone Frederick Meade MD Primary Care Provider [phone] Reason for Visit * Diagnostic Test (Routine) - Closed Specialty Diagnoses / Procedures Referred By Contac t Referred To Contact Radiology Diagnoses Diffuse large B-cell lymphoma of lymph nodes of multiple regions Skin nodule Procedures NM PET CT Standard Plus Extremities and Head Adrianne Ramon MD [facility] DR [place] [address] [place] [address] Referral ID Status Reason Start Date Expiration Date V isits Requested Visits Authorized [id number] Closed Specialty Service Requested 08/22/2023 02/21/2025 1 1 Encounter Details Date Type Department Care Team (Late st Contact Info) Description 09/06/2023 1:00 PM EDT - 09/06/2023 11:59 PM EDT Hospital Encounter [place] [address] Adrianne Ramon MD [facility] DR [place] [address] Discharge Disposition: Home Social History [...] Tablet Take 10 mg by mouth daily. allopurinoL (Zyloprim) 100 mg tablet Take 200 mg by mouth daily. amLODIPine (Norvasc) 5 mg tablet Take 5 mg by mouth daily. ONETOUCH ULTRA BLUE TEST STRIP Strip USE TO TEST DAILY 3 03/13/2018 ONE TOUCH DELICA 33 gauge Misc USE TO TEST DAILY 4 03/11/2018 ONETOUCH ULTRASOFT LANCETS Misc USE TO TEST DAILY 2 06/07/2018 aspirin 81 mg Tablet, Chewable Take 325 mg by mouth daily. diphenoxylate-atropine (Lomotil) 2.5-0.025 mg tablet Take 1 tablet by mouth 4 times daily as needed for Diarrhea. lactobacillus (BACID) Capsule Take 1 tablet by mouth daily. Psyllium Seed-Sucrose (0) Powder Take by mouth 2 times daily as needed. colchicine (COLCRYS) 0.6 mg Tablet Take 0.6 mg by mouth daily as needed (for Gout flare). Ibuprofen 200 mg Capsule Take by mouth 4 times daily as needed. Reported on 05/24/2016 documented as of this encounter Plan of Treatment Upcoming Encounters Date Type Department Care Team (Late st Contact Info) Description 09/26/2023 8:30 AM EDT Infusion Hematology Oncology at [address] [address] 10/03/2023 9:00 AM EDT Office Visit Hematology/Oncology at [address] [address] Adrianne Ramon MD [facility] HEMATOLOGY [place] [address] Yael Merlos APRN [facility] [place]ATOLOGY [place] [address] 10/03/2023 9:30 AM EDT Infusion Hematology Oncology at [address] [address] 10/10/2023 8:30 AM EDT Infusion Hematology Oncology at [address] [address] 10/10/2023 2:45 PM EDT Appointment XRay at [address] [place] [address] Micha Givens Jr., MD [facility] HEMATOLOGY [place] [address] 10/10/2023 3:00 PM EDT Appointment Non-[place] [address] 10/10/2023 3:30 PM EDT Appointment [place] [address] 10/11/2023 8:30 AM EDT Infusion Hematology Oncology at [address] [address] documented as of this encounter [...] * POCT Glucose (09/06/2023 1:06 PM EDT) Glucose, POC 98 65 - 199 mg/dL [facility] Comment: Supplemental ranges: <140 mg/dL before meals <180 mg/dL all other times of the day Blood 09/06/2023 1:06 PM EDT 09/06/2023 1:06 PM EDT Adrianne Ramon MD POINT OF CARE TE ORDERABLES [facility] [place] [address] * POCT Glucose (09/06/2023 10:41 AM EDT) Glucose, POC 142 65 - 199 mg/dL [facility] Comment: Supplemental ranges: <140 mg/dL before meals <180 mg/dL all other times of the day Blood 09/06/2023 10:4 1 AM EDT 09/06/2023 10:41 AM EDT Adrianne Ramon MD POINT [place] [address] documented in this encounter Visit Diagnoses Not on filedocumented in this encounter Care Teams Architectural Sales Consultant Relationship Specialty Start Date End Date Frederick Meade MD [address] [place] [address] PCP - General Family Medicine 11/29/17 documented as of this encounter
--- OUTSIDE RECORDS SUMMARY | 2023-09-26 02:47 | XMS_ITS | Encounter Summary ---
Author Organization [facility] [place] [address] Care Team Providers Care Sludge Control Operator Name Role Phone Frederick Meade MD Primary Care Provider [phone] Encounter Details Date Type Department Care Team [...] AM EDT Infusion Hematology Oncology at [address] [address] 10/03/2023 9:00 AM EDT Office Visit Hematology/Oncology at [address] [address] Adrianne Ramon MD [facility] HEMATOLOGY [place] [address] Yael Merlos APRN [facility] HEMATOLOGY [place] [address] 10/03/2023 9:30 AM EDT Infusion Hematology Oncology at [address] [address] 10/10/2023 8:30 AM EDT Infusion Hematology Oncology at [address] [address] 10/10/2023 2:45 PM EDT Appointment XRay at [address] [place] [address] Micha Givens Jr., MD [facility] HEMATOLOGY [place] [address] 10/10/2023 3:00 PM EDT Appointment Non[place] [address] 10/10/2023 3:30 PM EDT Appointment [place] [address] 10/11/2023 8:30 AM EDT Infusion Hematology Oncology at [address] [address] documented as of this encounter Visit Diagnoses Not on filedocumented in this encounter Care Teams Sludge Control Operator Relationship Specialty Start Date End Date Frederick Meade MD [address] [place] [address] PCP - General Family Medicine 11/29/17 documented as of this encounter
--- OUTSIDE RECORDS SUMMARY | 2023-09-26 02:47 | XMS_ITS | Encounter Summary ---
Author Organization [facility] [place] [address] Care Team Providers Care Cash Applications Specialist Name Role Phone Frederick Meade MD Primary Care Provider [phone] Reason for Referral * Diagnostic Test (Routine) - Closed Specialty Diagnoses / Procedures Referred By Contac t Referred To Contact Radiology Diagnoses Diffuse large B-cell lymphoma of lymph nodes of multiple regions Skin nodule Procedures IR Biopsy Lymph Node (Chest/Abdomen/Pelvis) IR Biopsy Lymph Node (Head/Neck) Adrianne Ramon MD [facility] DR HEMATOLOGY [place] [address] [place] [address] Referral ID Status Reason Start Date Expiration Date V isits Requested Visits Authorized [id number] Closed Specialty Service Requested 08/22/2023 02/21/2025 1 1 Reason for Visit * Diagnostic Test (Routine) - Closed Specialty Diagnoses / Procedures Referred By Contac t Referred To Contact Radiology Diagnoses Diffuse large B-cell lymphoma of lymph nodes of multiple regions Skin nodule Procedures IR Biopsy Lymph Node (Chest/Abdomen/Pelvis) IR Biopsy Lymph Node (Head/Neck) Adrianne Ramon MD [facility] DR HEMATOLOGY [place] [address] [facility] [place] [address] Referral ID Status Reason Start Date Expiration Date V isits Requested Visits Authorized [id number] Closed Specialty Service Requested 08/22/2023 02/21/2025 1 1 Encounter Details Date Type Department Care Team (Late st Contact Info) Description 09/06/2023 10:15 AM EDT - 09/06/2023 12:58 PM EDT Hospital En[place] [address] Adrianne Ramon MD [facility] DR HEMATOLOGY [place] [address] Diffuse large B-cell lymphoma of [...] Caldwell RN - 09/06/2023 9:38 AM EDT [facility] Vascular and Interventional Radiology Lymph node biopsy [...] be reported to you by your primary home care specialist or the clinician who ordered the biopsy. Please do not call us for results as we will not have them. If you have not been contacted by your clinician within 5 business days you should call that officefor further information. When to call the Interventional Radiology Department: Please call with any questions or concerns. If it is during regular office hours, please call [phone]. If it is after regular office hours, or on weekends or holidays, please call [phone] and ask to speak to the Mica Paster correction warden for Interventional Radiology. ---- documented in this [...] TEST DAILY 4 03/11/2018 ONETOUCH ULTRASOFT LANCETS [facility] USE TO TEST DAILY 2 06/07/2018 aspirin [...] on 05/24/2016 documented as of this encounter Progress Notes * Andreas Caldwell RN - 09/06/2023 12:21 PM EDT [facility] NUR[facility] DATABASE Name: Cheo Freire Date of : 1950 AGE: 73 y.o. Address: [address] [place] [address] [address] [facility] [address] Phone: [phone] (home) Mobile: Telephone Information: Referring Provider: Adrianne Ramon REASON FOR VISIT: Order Questions Answers Where will study be performed? [facility] Radiology [120] To be scheduled Ordering department [...] Questions Answers Where will study be performed? [facility] Radiology [120] To be scheduled Ordering department [...] IR Mediport Placement 10/17/2022 Gail Jha PA [facility] INTERVENTIONL RAD IR MEDIPORT REMOVAL 03/29/2023 IR Mediport Removal 03/29/2023 Ole Arvizu MD [facility] INTERVENTIONL RAD TONSILLECTOMY 1958 Social history and [...] AM EDT Infusion Hematology Oncology at [address] [address] 10/03/2023 9:00 AM EDT Office Visit Hematology/Oncology at [address] [address] Adrianne Ramon MD [facility] HEMATOLOGY [place] [address] Yael Merlos APRN [facility] HEMATOLOGY [place] [address] 10/03/2023 9:30 AM EDT Infusion Hematology Oncology at [address] [address] 10/10/2023 8:30 AM EDT Infusion Hematology Oncology at [address] [address] 10/10/2023 2:45 PM EDT Appointment XRay at [address] [place] [address] Micha Givens Jr., MD [facility] HEMATOLOGY [place] [address] 10/10/2023 3:00 PM EDT Appointment Non-Invasive [place] [address] 10/10/2023 3:30 PM EDT Appointment [place] [address] 10/11/2023 8:30 AM EDT Infusion Hematology Oncology at [address] [address] Pending Results Name Type Priority Associated Diagnoses [...] multiple regions Skin nodule IMMUNOPHENOTYPING FLOW CYTOMETRY (BLOOD) Routine 09/06/2023 12:28 PM EDT FLOW CYTOMETRY REPORT Routine 09/06/2023 12:28 PM EDT IMMUNOPHENOTYPING FLOW CYTOMETRY (BLOOD) Routine 09/06/2023 11:40 AM EDT FLOW CYTOMETRY REPORT Routine 09/06/2023 11:40 AM EDT CHROMO REPORT ACQUIRED Routine 11:35 AM EDT SURGICAL PATHOLOGY REPORT Routine 2023 11:35 AM EDT HC FUNGUS CULTURE, MISC SOURCE Routine 09/06/2023 11:25 AM EDT ANAEROBIC CULTURE Routine 09/06/2023 11: 25 AM EDT HC TISSUE HOMOGENIZATION FOR CULTURE Routine 09/06/2023 11:25 AM EDT AFB CULTURE Routine 09/06/2023 11:25 AM EDT FUNGAL [...] performed this procedure. ? Adrianne Ramon MD IM IR ORDERABLE S * Flow Cytometry Report (09/06/2023 12:28 PM EDT) Flow Cytometry Report [id number] ? Location: [facility] The signing pathologist has (i) examined the relevant preparation(s) for the specimen(s) and (ii) rendered or confirmed the diagnosis(es). . ?Flow Cytometry DIAGNOSIS ? 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 See comment. Electronically signed by: ?Dana OCASIO, Filemon Verified: ??09/10/2023 15:05 ??Hematopathologist Performed at: ??-[facility] Dept. of Pathology, [place] [address] Network Security Consultant: Katherine Lopez MD, AP, ??CLIA Certificate: [id number] DISCUSSION The T-lymphocytes , B- lymphocytes and [...] by the Clinical Flow Cytometry Laboratory at [facility]. It has not been cleared or approved [...] high complexity clinical laboratory testing. SPECIMEN PROCESSING [id number] Cells for immunophenotypic analysis were derived from LEFT AUX LYMPH NODE. CD45 vs side scatter gating was utilized to identify a LYMPHOID analysis region that comprises approximately 95-97% of all cells. The following markers were assessed: CD2, CD3, CD4, CD5, CD7, CD8, CD10, CD19, CD20, CD23, CD38, CD45, CD56, FMC-7, kappa light chain, and lambda light chain. CLINICAL INFORMATION dlbcl [facility] 09/06/2023 12:2 8 PM EDT Micha Pearl MD PATHOLOGY/CYTOLOGY O RDERABLES [facility] [place] [address] * Immunophenotyping Flow Cytometry (09/06/2023 12:28 PM EDT) Immunophenotyping Flow See Comment [facility] Comment: When completed by the Pathologist, the Flow Cytometry Report ([id number]) will display under the Pathology Results section within eDH. Other 09/06/2023 12:2 8 PM EDT 09/06/2023 12:47 PM EDT Narrative Resulting Agency Comment Spec In Lab Micha Pearl MD HEMATOLOGY ORDERABLE S [facility] [place] [address] * Flow Cytometry Report (09/06/2023 11:40 AM EDT) Flow Cytometry Report [id number] ? Location: [facility] The signing pathologist has (i) examined the relevant preparation(s) for the specimen(s) and (ii) rendered or confirmed the diagnosis(es). . ?Flow Cytometry DIAGNOSIS Flow cytometric diagnosis: ?? No ??B-cell population or phenotypically abnormal T-cell population is detected. Electronically signed by: ?Dana OCASIO, Filemon Verified: ??09/07/2023 15:52 ??Hematopathologist Performed at: ??-[facility] Dept. of Pathology, [place] [address] Network Security Consultant: Katherine Lopez MD, FCAP, ??CLIA Certificate: [id number] DISCUSSION Blasts based on CD45 expression and [...] 5, 7). There is no increase in HF77-cjilehlt/CD3-n eg NK cells. Flow analysis is an ancillary study. A definite diagnosis requires correlation with the morphologic features of this process and if necessary, correlation with other ancillary studies like immunohistochemistr y, enzyme cytochemistry and/or cyto/ molecular genetics. This test was developed and its performance characteristics determined by the Clinical Flow Cytometry Laboratory at [facility]. It has not been cleared or approved [...] high complexity clinical laboratory testing. SPECIMEN PROCESSING [id number] Cells for immunophenotypic analysis were derived from left arm collection. CD45 vs side scatter gating was utilized to identify a lymphoid analysis region that comprises approximately 18-27% of all cells. The following markers were assessed: CD2, CD3, CD4, CD5, CD7, CD8, CD10, CD19, CD45, CD56, kappa light chain, and lambda light chain. CLINICAL INFORMATION [facility] 09/06/2023 11:4 0 AM EDT James Champion DO PATHOLOGY/CYTOLOGY O RDERABLES Performing Organization Address [facility] Co de Phone Number [facility] [place] [address] * Immunophenotyping Flow Cytometry (09/06/2023 11:40 AM EDT) Immunophenotyping Flow See Comment [facility] Comment: When completed by the Pathologist, the Flow Cytometry Report ([id number]) will display under the Pathology Results section within eDH. Other 09/06/2023 11:4 0 AM EDT 09/06/2023 12:11 PM EDT Narrative Resulting Agency Comment Spec In Lab James Champion DO HEMATOLOGY ORDERABLE S Performing Organization Address City/[facility]/ZIP Co de Phone Number [facility] [place] [address] * chromo report acquired (09/06/2023 11:35 AM EDT) Cytogenetics Acquired Report Final Report ? [id number] Specimen Type: Fixed Tissue Specimen Condition: 1 [...] using dual-color, break-apart probes for BCL6/3q27 rearrangement ([employer] shows a signal pattern consistent with a BCL6 rearrangement in 0% of 100 cells. This is within the acceptable reference limits (0-7.4%). Thus, there is no evidence for BCL6/3q27 gene rearrangement. Interphase FISH analysis using dual-color, break-apart probes for MYC/8q24 rearrangement ([employer] shows 0% of 100 cells with a MYC rearrangement signal pattern. This is within acceptable reference limits (0-6.0%). Thus, there is no evidence for MYC/8q24 gene rearrangement. Interphase FISH analysis using dual-color, dual-fusion probes for MYC-IGH/t(8;14)(q2 4;q32) ([employer] shows 0% of 100 cells with a MYC-IGH rearrangement signal pattern. This is within acceptable reference limits (0-3.0%). Thus, there is no evidence for MYC-IGH/t(8;14) gene rearrangement. Interphase FISH analysis using dual-color, dual-fusion probes for CCND1-IGH/t(11;14) (q24;q32) ([employer] shows 0% of 100 cells with an CCND1-IGH rearrangement signal pattern. This is within acceptable reference limits (0-3.0%). Thus, there is no evidence for CCND1-IGH/t(11;14) gene rearrangement. Interphase FISH analysis using dual-color break-apart probes for BCL2/18q21 rearrangement ([employer] shows 0% of 100 cells with [...] its performance characteristics were determined by the [facility] ([facility]) Cytogenetics Laboratory as required by The Clinical [...] the test? s accuracy and precision. The [facility] Cytogenetics Laboratory is certified under the CLIA? 88 as qualified to perform high complexity clinical laboratory testing. Chromosome alterations outside the regions complementary to these DNA FISH probes will not be detected. 09.20.23 (Electronic Signature) Verified By: Channing Ph.D., FAC, Tommy A Clinical Railway Switchman/Mol ecular Manager Drug [facility] 09/06/2023 11:3 5 AM EDT 09/11/2023 8:57 AM EDT James Champion DO HEMATOLOGY ORDERABLE S [facility] [place] [address] * (ABNORMAL) Surgical Pathology Report (09/06/2023 11:35 AM EDT) Surgical Pathology Report [id number] ? Location: [facility] The signing pathologist has (i) examined [...] Filemon Verified: ??09/10/2023 18:38 ??Hematopathologist Performed at: ??-[facility] Dept. of Pathology, [place] [address] Network Security Consultant: Katherine Lopez MD, FCAP, ??CLIA Certificate: [id number] SYNOPTIC THIS RESULT REQUIRES PHYSICIAN/A.P.P. FOLLOW UP [...] lymphoid neoplasms . Blood . 2016. 127 (20):3301-5565. Rafael CP et al . Blood 103:275-282 [...] submitted in 2 cassettes labeled B1-B2. ??CCP(A) [facility] 09/06/2023 11:3 5 AM EDT James Champion DO PATHOLOGY/CYTOLOGY O RDERABLES [facility] [place] [address] * Anaerobic Culture (09/06/2023 11:25 AM EDT) Anaerobic Culture No anaerobic organisms isolated [facility] Arm 09/06/2023 11:2 5 AM EDT 09/06/2023 12:21 PM EDT Comment:Left Arm Collection versus mass Narrative Resulting Agency Comment Spec In Lab James Champion DO MICROBIOLOGY - GENER AL ORDERABLES Performing Organization Address City/[facility]/ZIP Co de Phone Number [facility] [place] [address] * Tissue culture (09/06/2023 11:25 AM EDT) Tissue Culture No growth [facility] Gram Stain Few Neutrophils seen No microorganisms seen. [facility] Arm 09/06/2023 11:2 5 AM EDT 09/06/2023 12:21 PM EDT Comment:Left Arm Collection versus mass Narrative Resulting Agency Comment Spec In Lab James Champion DO MICROBIOLOGY - GENER AL ORDERABLES Performing Organization Address City/[facility]/ZIP Co de Phone Number [facility] [place] [address] * Calcofluor White Stain (09/06/2023 11:25 AM EDT) Calcofluor Stain Calcofluor White Preparation: Negative [facility] Other 09/06/2023 11:2 5 AM EDT 09/06/2023 12:21 PM EDT Comment:Left Arm Collection versus Mass Narrative Resulting Agency Comment Spec In Lab James Champion DO MICROBIOLOGY - GENER AL ORDERABLES Performing Organization Address City/[facility]/ZIP Co de Phone Number [facility] [place] [address] * Specimen to Pathology (09/06/2023 11:20 AM EDT) AP Specimen 09/06/2023 11:2 0 AM EDT 09/06/2023 11:20 AM EDT Narrative [facility] - 09/06/2023 11:20 AM EDT Specimen requisition ordered. ??Separate Pathology report to follow James Champion DO PATHOLOGY/CYTOLOGY O RDERABLES Performing Organization Address [facility] [place] [address] * Specimen to Pathology (09/06/2023 10:43 AM EDT) AP Specimen 09/06/2023 10:4 3 AM EDT 09/06/2023 10:43 AM EDT Narrative [facility] - 09/06/2023 10:43 AM EDT Specimen requisition ordered. ??Separate Pathology report to follow Micha Pearl MD PATHOLOGY/CYTOLOGY O COLIN Performing Organization Address [facility] [place] [address] * Cytopathology Non-Gynecological (09/06/2023 10:41 AM EDT) AP Specimen 09/06/2023 10:4 1 AM EDT 09/06/2023 10:41 AM EDT [facility] - 09/06/2023 10:41 AM EDT Specimen requisition ordered. ??Separate Pathology report to follow Micha Pearl MD PATHOLOGY/CYTOLOGY O COLIN Performing Organization Address [facility] [place] [address] documented in this encounter Visit Diagnoses Diagnosis [...] mg documented in this encounter Care Teams Cash Applications Specialist Relationship Specialty Start Date End Date Frederick Meade MD [address] [place] [address] PCP - General Family Medicine 11/29/17 documented as of this encounter
--- OUTSIDE RECORDS SUMMARY | 2023-09-26 02:47 | XMS_ITS | Encounter Summary ---
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 Skin nodule Procedures NM PET CT Standard Plus Extremities and Head Adrianne Ramon MD [facility] [address] [place] [address] [place] [address] Referral ID Status Reason Start Date Expiration Date V isits Requested Visits Authorized [id number] Closed Specialty Service Requested 08/22/2023 02/21/2025 1 1 Reason for Visit * Diagnostic Test (Routine) - Closed Specialty Diagnoses / Procedures Referred By Contac t Referred To Contact Radiology Diagnoses Diffuse large B-cell lymphoma of lymph nodes of multiple regions Skin nodule Procedures NM PET CT Standard Plus Extremities and Head Adrianne Ramon MD [facility] [address] [place] [address] [place] [address] Referral ID Status Reason Start Date Expiration Date V isits Requested Visits Authorized [id number] Closed Specialty Service Requested 08/22/2023 02/21/2025 1 1 Encounter Details Date Type Department Care Team (Jaciel teixeira Contact Info) Description 09/06/2023 12:59 PM EDT Hospital Encounter [place] [address] Adrianne Ramon MD [facility] [address] [place] [address] 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 D8A GroupTOUCH ULTRA BLUE TEST STRIP Strip USE TO [...] AM EDT Infusion Hematology Oncology at [address] [address] 10/03/2023 9:00 AM EDT Office Visit Hematology/Oncology at [address] [address] Ardianne Ramon MD [facility] [place] [address] Yael Merlos, DELICATESSEN MANAGER [facility] [place] [address] 10/03/2023 9:30 AM EDT Infusion Hematology Oncology at [address] [address] 10/10/2023 8:30 AM EDT Infusion Hematology Oncology at [address] [address] 10/10/2023 2:45 PM EDT Appointment XRay at [address] [place] [address] Micha Givens Jr., MD [facility] H[place]ATOLOG[place] [address] 10/10/2023 3:00 PM EDT Appointment Non-Invasive [place] [phone] 10/10/2023 3:30 PM EDT Appointment [place] [address] 10/11/2023 8:30 AM EDT Infusion Hematology Oncology at [address] [address] documented as of this encounter Procedures Procedure Name Priority Date/Time Associated Diagnosis Comments NM PET CT STANDARD PLUS EXTREMITIES AND HEAD Routine 09/06/2023 2:45 PM EDT Diffuse large B-cell lymphoma of lymph nodes of multiple regions Skin nodule documented in this encounter Results * NM PET CT Standard Plus Extremities and Head (09/06/2023 2:45 PM EDT) WORKSTATION ID [id number] RAD Anatomical Region Laterality Modality Positron Emissio [...] questions please contact the health acute care certified nursing assistant that requested your imaging first. ? Electronically signed by: Rohan Henley MD, [facility] ([phone]), at 09/10/2023 11:18 AM Narrative 09/10/2023 11:18 [...] unspecified. TECHNIQUE: Procedure: Following IV injection of 28-lzjgln-0-deoxyglucose (FDG) a standard uptake of approximately 60 [...] unspecified. TECHNIQUE: Procedure: Following IV injection of 96-ddmkqd-3-deoxyglucose(FDG) a standard uptake of approximately 60 minutes, [...] have questions please contactthe health acute care certified nursing assistant that requested your imaging first. Adrianne Ramon [...] Arm documented in this encounter Care Teams Azure Developer Relationship Specialty Start Date End Date Frederick Meade MD [address] [place] [address] PCP - General Family Medicine 11/29/17 documented as of this encounter
--- OUTSIDE RECORDS SUMMARY | 2023-09-26 02:47 | XMS_ITS | Encounter Summary ---
Author Organization [facility] 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 Pre-op testing Micha Givens Jr., MD [facility] DR HEMATOLOGY [place] [address] Maria L Barnes MSW Referral ID Status Reason Start Date Expiration Date Visits Requested Visits Authorized [id number] Authorized Consult, Test & Treat 09/21/2023 09/20/2024 1 1 * Consultation (Routine) - Authorized Specialty Diagnoses / Procedures Referred By Paul bowen Referred To Contact Diagnoses 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 Pre-op testing Micha Givens Jr., MD [facility] [address] HEMATOLOGY [place] [address] [facility] [place] [address] Referral ID Status Reason Start Date Expiration Date Visits Requested Visits Authorized [id number] Authorized Continuity of Care 09/21/2023 09/20/2024 1 1 Encounter Details Date Type Department Care Team (Late st Contact Info) Description 09/21/2023 Orders Only Hematology and Oncology at [facility] [place] [address] Micha Givens Jr., MD [facility] HEMATOLOGY [place] [address] Diffuse large B-cell lymphoma of lymph nodes [...] AM EDT Infusion Hematology Oncology at [address] [address] 10/03/2023 9:00 AM EDT Office Visit Hematology/Oncology at [address] [address] Adrianne Ramon MD [facility] DR [place]AT[place] [address] Yael Merlos APRN [facility] [place] [address] 10/03/2023 9:30 AM EDT Infusion Hematology Oncology at [address] [address] 10/10/2023 8:30 AM EDT Infusion Hematology Oncology at [address] [address] 10/10/2023 2:45 PM EDT Appointment XRay at [address] [place] [address] Micha Givens Jr., MD [facility] [place] [address] 10/10/2023 3:00 PM EDT Appointment Non-[place] [address] 10/10/2023 3:30 PM EDT Appointment [place] [address] 10/11/2023 8:30 AM EDT Infusion Hematology Oncology at [address] [address] Pending Results Name Type Priority Associated Diagnoses Date /Time Direct antiglobulin test Lab Routine 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 Pre-op testing 09/21/2023 11:14 AM EDT Scheduled Orders Name Type Priority Associated Diagnoses Orde r Schedule CBC (with Diff) Lab Routine 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 Pre-op testing Expected: 09/21/2023, Expires: 09/20/2024 Common Pulmonary Function Test PFT Routine 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 Pre-op testing Expected: 09/21/2023, Expires: 09/20/2024 Comprehensive metabolic panel (non-fasting) Lab Routine 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 Pre-op testing Expected: 09/21/2023, Expires: 09/20/2024 Direct antiglobulin test Lab Routine 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 Pre-op testing Expected: 09/21/2023, Expires: 09/20/2024 EKG 12 Lead ECG Routine 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 Pre-op testing Expected: 09/21/2023, Expires: 09/20/2024 XR Chest PA & Lateral (Generic) Imaging Routine 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 Pre-op testing Expected: 09/21/2023, Expires: 09/20/2024 Lactate Dehydrogenase Lab Routine 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 Pre-op testing Expected: 09/21/2023, Expires: 09/20/2024 Ferritin Lab Routine Iron deficiency anemia, unspecified iron deficiency anemia type Expected: 09/21/2023, Expires: 03/22/2024 Scheduled Referrals Name Type Priority Associated Diagnoses Orde r Schedule Referral to Nutrition Services Outpatient Referral Routine 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 Pre-op testing Expected: 09/21/2023, Expires: 09/20/2024 Referral to Social Work Outpatient Referral Routine 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 Pre-op testing Ordered: 09/21/2023 documented as of this encounter Results * (ABNORMAL) Iron and TIBC (09/21/2023 11:14 AM EDT) Iron 39(L) 45 - 160 mcg/dL [facility] TIBC 255 250 - 450 mcg/dL [facility] Iron Saturation 15(L) 20 - 50 % [facility] Blood 09/21/2023 11:1 4 AM EDT 09/21/2023 11:30 AM EDT Narrative Resulting Agency Comment Spec In Lab Micha Givens Jr., MD CHEMISTRY ORDERABLES Performing Organization Address [facility] Co de Phone Number [facility] [place] [address] * (ABNORMAL) CRP, acute inflammation (09/21/2023 11:14 AM EDT) [facility] C-Reactive Protein 52.8(H) <=4.9 mg/L [facility] Blood 09/21/2023 11:1 4 AM EDT 09/21/2023 11:30 AM EDT Narrative Resulting Agency Comment Spec In Lab Micha Givens Jr., MD CHEMISTRY ORDERABLES Performing Organization Address [facility] Co de Phone Number [facility] [place] [address] * Ferritin (09/21/2023 11:14 AM EDT) Ferritin 393 31 - 409 ng/mL [facility] Comment: Please note that as of 01/24/2023, the reference intervals for Ferritin have been updated. Blood 09/21/2023 11:1 4 AM EDT 09/21/2023 11:30 AM EDT Narrative Resulting Agency Comment Spec In Lab Micha Givens Jr., MD CHEMISTRY ORDERABLES Performing Organization Address City/State/[facility] Co de Phone Number [facility] [place] [address] * Uric acid (09/21/2023 11:14 AM EDT) Uric Acid 5.1 3.5 - 8.5 mg/dL [facility] Blood 09/21/2023 11:1 4 AM EDT 09/21/2023 11:30 AM EDT Narrative Resulting Agency Comment Spec In Lab Micha Givens Jr., MD CHEMISTRY ORDERABLES Performing Organization Address [facility] Co de Phone Number [facility] [place] [address] * Calcium, Ionized, Serum (09/21/2023 11:14 AM EDT) Ionized Calcium 1.25 1.15 - 1.33 mmol/L [facility] Comment: Note: Total bilirubin higher than 20 mg/dL may lead to falsely low ionized calcium. This test has not been cleared by the [place] FDA. Performance characteristics of this test were determined by [facility] in accordance with CLIA requirements. This laboratory is qualified under CLIA to perform high-complexity testing. Blood 09/21/2023 11:1 4 AM EDT 09/21/2023 11:30 AM EDT Narrative Resulting Agency Comment Spec In Lab Micha Givens Jr., MD CHEMISTRY ORDERABLES Performing Organization Address [facility] Co de Phone Number [facility] [place] [address] * Toxoplasma Antibody, IgM (09/21/2023 11:14 AM EDT) Toxoplasma Antibody IgM Negative Negative [facility] Blood 09/21/2023 11:1 4 AM EDT 09/21/2023 1:04 PM EDT Narrative Resulting Agency Comment Spec In Lab Micha Givens Jr., MD IMMUNOLOGY ORDERABLE S Performing Organization Address City/[facility] Co de Phone Number [facility] [place] [address] * Toxoplasma Antibody, IgG (09/21/2023 11:14 AM EDT) Toxoplasma Antibody IgG Negative Negative [facility] Blood 09/21/2023 11:1 4 AM EDT 09/21/2023 1:04 PM EDT Narrative Resulting Agency Comment Spec In Lab Micha Givens Jr., MD IMMUNOLOGY ORDERABLE S Performing Organization Address [facility] Co de Phone Number [facility] [place] [address] * PSA Screen (09/21/2023 11:14 AM EDT) PSA Screen 0.03 0.00 - 4.00 ng/mL [facility] Comment: PLEASE NOTE: The above reference [...] Jr., MD CHEMISTRY ORDERABLES Performing Organization Address [facility] Co de Phone Number [facility] [place] [address] * Phosphorus (09/21/2023 11:14 AM EDT) Phosphorus 2.9 2.5 - 4.5 mg/dL [facility] Blood 09/21/2023 11:1 4 AM EDT 09/21/2023 11:30 AM EDT Narrative Resulting Agency Comment Spec In Lab Micha Givens Jr., MD CHEMISTRY ORDERABLES [facility] [place] [address] * Magnesium (09/21/2023 11:14 AM EDT) [facility] Magnesium 0.80 0.69 - 1.07 mmol/L [facility] Blood 09/21/2023 11:1 4 AM EDT 09/21/2023 11:30 AM EDT Narrative Resulting Agency Comment Spec In Lab Micha Givens Jr., MD CHEMISTRY ORDERABLES Performing Organization Address City/[facility]/ZIP Co de Phone Number [facility] [place] [address] * Type and screen ([facility]/MARCELINA) (09/21/2023 11:14 AM EDT) [facility] ABORH Type O NEGATIVE [facility] Patient BB History Not Found [facility] Expires at [id number] on: 09/24/2023 [facility] Ab Screen Interp Negative [facility] Blood 09/21/2023 11:1 4 AM EDT 09/21/2023 11:14 AM EDT Narrative [facility] - 09/21/2023 11:14 AM EDT This Type and Screen result is only valid at the [facility] Resulting Agency Comment Spec In Lab Micha Givens Jr., MD BLOOD BANK LAB ORDER DUONG Performing Organization Address City/[facility]/ZIP Co de Phone Number [facility] [place] [address] * Varicella zoster Antibody, IgG (09/21/2023 11:14 AM EDT) [facility] Varicella Zoster Antibody IgG Positive Positive [facility] Comment: A positive result for this assay is considered to be an indicator of positive immune status. Blood 09/21/2023 11:1 4 AM EDT 09/21/2023 1:04 PM EDT Narrative Resulting Agency Comment Spec In Lab Micha Givens Jr., MD IMMUNOLOGY ORDERABLE S [facility] [place] [address] * HSV 1 and 2 IgG Antibodies (09/21/2023 11:14 AM EDT) HSV Type 1 Ab, IgG Negative Negative [facility] HSV Type 2 Ab, IgG Negative Negative [facility] Blood 09/21/2023 11:1 4 AM EDT 09/21/2023 1:04 PM EDT Narrative Resulting Agency Comment Spec In Lab Micha Givens Jr., MD IMMUNOLOGY ORDERSONY S Performing Organization Address [facility] Co de Phone Number [facility] [place] [address] * (ABNORMAL) Alton-Dominguez Virus Antibodies (09/21/2023 11:14 AM EDT) EBV (VCA) IgG Ab Positive(A) Negative [facility] EBV (VCA) IgM Ab Negative Negative [facility] EBNA Antibodies Positive(A) Negative [facility] EBV Interpretation Past EBV infection. [facility] Comment: In most populations, at least [...] MD IMMUNOLOGY ORDERABLE S Performing Organization Address City/[facility]/ZIP Co de Phone Number [facility] [place] [address] * CMV Antibody, IgM (09/21/2023 11:14 AM EDT) CMV IgM Negative Negative [facility] Blood 09/21/2023 11:1 4 AM EDT 09/21/2023 1:04 PM EDT Narrative Resulting Agency Comment Spec In Lab Micha Givens Jr., MD IMMUNOLOGY ORDERABLE S Performing Organization Address City/[facility]/ZIP Co de Phone Number [facility] [place] [address] * CMV Antibody, IgG (09/21/2023 11:14 AM EDT) CMV IgG Negative Negative [facility] Blood 09/21/2023 11:1 4 AM EDT 09/21/2023 1:04 PM EDT Narrative Resulting Agency Comment Spec In Lab Micha Givens Jr., MD IMMUNOLOGY ORDERABLE S Performing Organization Address City/[facility] Co de Phone Number [facility] [place] [address] * Urinalysis with reflex Culture (09/21/2023 11:11 AM EDT) Glucose, Urine Dipstick Negative Negative mg/dL [facility] Protein, Urine Dipstick Negative Negative mg/dL [facility] Bilirubin, Urine Dipstick Negative Negative mg/dL [facility] Comment: Clinical correlation required for positive Urine Bilirubin results as false positive may occur with some drugs and drug related products. If a false positive is suspected a serum total bilirubin should be considered if clinically indicated. Urobilinogen, Urine Dipstick Normal Normal mg/dL [facility] pH, Urn (dipstick) 6.5 5.0 - 8.0 [facility] Blood, Urine Dipstick Negative Negative mg/dL [facility] Ketone, Urine Dipstick Negative Negative mg/dL [facility] Nitrite, Urine Dipstick Negative Negative [facility] Leukocytes, Urine Dipstick Negative Negative [facility] Appearance, Urine Dipstick Clear Clear [facility] Specific [place] Urine Automated 1.009 1.005 - 1.030 [facility] Color, Urine Dipstick Yellow Yellow [facility] Reflex to Culture No [facility] Clean Catch Urine 09/21/2023 11:11 AM EDT 09/21/2023 11:33 AM EDT Narrative Resulting Agency Comment Spec In Lab Micha Givens Jr., MD URINE ORDERABLES [facility] [place] [address] documented in this encounter Visit Diagnoses Diagnosis 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 Pre-op testing Preoperative examination, unspecified At high risk for bleeding Other specified conditions influencing health status Prostate cancer screening Special screening for malignant neoplasm of prostate Iron deficiency anemia, unspecified iron deficiency anemia type 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 Pre-op testing Preoperative examination, unspecified Prostate cancer screening Special screening for malignant neoplasm of prostate Iron deficiency anemia, unspecified iron deficiency anemia type documented in this encounter Care Teams Transfusion Aide Relationship Specialty Start Date End Date Frederick Meade MD [address] [place] [address] PCP - General Family Medicine 11/29/17 documented as of this encounter
--- OUTSIDE RECORDS SUMMARY | 2023-09-26 02:47 | XMS_ITS | Encounter Summary ---
Author Organization [facility] Address [facility] [place] [address] Care Team Providers Care Racehorse Trainer Name Role Phone Frederick Meade MD Primary Care Provider [phone] Encounter Details Date Type Department Care Team (Late st Contact Info) Description 09/19/2023 Notes Only Hematology/Oncology at [address] [address] Shelley Cason, [facility]ICE [facility] CARE MANAGEMENT Social History Tobacco [...] Progress Notes * Shelley Cason MSW - 09/19/2023 9:14 AM EDT Met with Cheo and his during his infusion visit. He is returning to treatment. Discussed thefollowing: Daily Activities/Transportation: Cheo and his indicated they are managing day to day at home. They are comfortable in their apartment and all is manageable. They keep busy with daily activities, watching TV and Playing cards. They do not expect any issues with transportation. Support System: Both report they have great support from their children, friends and other residents in their complex. Insurance/Finances: Cheo's indicated they were able to get a toi for the medication Freddy be on. They are managing otherwise. Reminded them of the [facility] if they needs to apply for another toi. His is keeping that in mind if they have a need that comes up. Coping: Cheo and his were hit with the news that his disease is back. He is feeling anxious and concerns about starting treatment again. His tells others she is fine but is quite concerned and worried herself. Offered support. Cheo and his did not identify any specific needs today. ABSENCE MANAGEMENT CONSULTANT will follow for support and resources. Brief assessment Supportive Counseling Financial resources documented in this encounter Plan of Treatment Upcoming Encounters Date Type Department Care Team (Late st Contact Info) Description 09/26/2023 8:30 AM EDT Infusion Hematology Oncology at [address] [phone] 10/03/2023 9:00 AM EDT Office Visit Hematology/Oncology at [address] [phone] Adrianne Ramon MD [facility] DR [place] [address] Yael Merlos APRN [facility] [place] [address] 10/03/2023 9:30 AM EDT Infusion Hematology Oncology at [address] [phone] 10/10/2023 8:30 AM EDT Infusion Hematology Oncology at [address] [phone] 10/10/2023 2:45 PM EDT Appointment XRay at [address] [place] [address] Micha Givens Jr., MD [facility] [place] [address] 10/10/2023 3:00 PM EDT Appointment Non-Invasive [place] [address] 10/10/2023 3:30 PM EDT [place] [address] 10/11/2023 8:30 AM EDT Infusion Hematology Oncology at [address] [phone] documented as of this encounter Visit Diagnoses Not on filedocumented in this encounter Care Teams Racehorse Trainer Relationship Specialty Start Date End Date Frederick Meade MD [address] [place] [address] PCP - General Family Medicine 11/29/17 documented as of this encounter
--- OUTSIDE RECORDS SUMMARY | 2023-09-26 02:47 | XMS_ITS | Encounter Summary ---
Author [place] [address] Care Team Providers Care Sql Database Developer Name Role Phone Frederick Meade MD Primary Care Provider +1 [phone] Encounter Details Date Type Department Care Team (Latest Contact Info) Description 09/21/2023 10:30 AM EDT Clinical Support [place] [phone] Danii Her, RN Diffuse large B-cell lymphoma [...] as of this encounter Progress Notes * Danii Her RN - 09/21/2023 10:30 AM EDT Transplant and Cellular Therapy Nurse Coordinator: CAR T-Cell Teaching Note PATIENT: Cheo Freire DATE: 09/21/2023 DIAGNOSIS: DLBCL REASON FOR VISIT: Overview of CAR T Meet patient and family Subjective: Cheo arrived with his and daughter. Intermittently tearful at time - he is so thankful for his and kids, and all they have done for him so far. Objective: Cheo is a 73 year old male with a diagnosis of relapsed DLBCL is here today for consult appointment with Dr. Givens for CAR T-Cell therapy. Teaching done today and offered time for questions and answers: We briefly reviewed: Cells removed by stem cell apheresis (outpatient). Patient returns home - wait for manufactured cells to be ready for shipment. Patient returns to [facility] for 3-5 days of chemotherapy (outpatient). Cell Infusion - admission for a minimum of 7 days (our [facility] standard is 14) for monitoring. 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 Stay within 1 hour [facility] for 4 weeks post infusion. Caregiver required for 4-8 weeks post infusion. CAREGIVER PLAN: Claritza, and his four children. No driving/operating heavy machinery for 8 weeks post infusion due to the risk of neurotoxicity, reviewed that he will be on seizure prophylaxis for 8 weeks after CAR T-cell infusion. Required to carry a wallet card and identify self as a CAR-T patient for 2-3 months after infusion.We reviewed s/sx of CRS and Neurotoxicity outlined in the patient medication guide from [facility] on [employer] as well as in the content of power point teaching tool. Patient Wallet Card -most recent version given to pt and encouraged pt to take photo to have this on hand as well as duplicate copy. Health maintenance records: colo - Last completed at [facility] in 2011 Dental: False teeth, all teeth removed years ago. We discussed role of medical social consultant for pretransplant assessment and as a resource for financial assistance programs, advance directives and psychosocial support. Maria L Barnes visit TBD. We discussed the role of nutrition before, during and after transplant and stressed that there are some modifications to diet that stress food safety -with the goal to decrease the risk of a food borne illness post CAR T. We will have oncology graphite disk assembler re-enforce food safety guidelines post CAR T cell due to immunosuppression risk. We discussed guidelines post CAR T for safe living and to prevent infection due to the immunosuppression that can occur to due B-Cell aplasia post CAR T. Assessment: Cheo verbalized understanding of above discussion and were asking appropriate questions. Plan: Pre-CAR T Work Up Receiving 4 weeks of Rituxan, will complete restaging after 4th week. documented in this encounter Plan of Treatment Upcoming Encounters Date Type Department Care Team (Late st Contact Info) Description 09/26/2023 8:30 AM EDT Infusion Hematology Oncology at [address] [phone] 10/03/2023 9:00 AM EDT Office Visit Hematology/Oncology at [address] [address] Adrianne Ramon MD [facility] HEMATOLOGY [place] [address] Yael Merlos, RADIOLOGY TEACHER [facility] [place] [address] 10/03/2023 9:30 AM EDT Infusion Hematology Oncology at [address] [phone] 10/10/2023 8:30 AM EDT Infusion Hematology Oncology at [address] [phone] 10/10/2023 2:45 PM EDT Appointment XRay at [address] [place] [address] Micha Givens Jr., MD [facility] [place] [address] 10/10/2023 3:00 PM EDT Appointment Non-[place]vasive [place] [address] 10/10/2023 3:30 PM EDT [place] [address] 10/11/2023 8:30 AM EDT Infusion Hematology Oncology at [address] [phone] documented as of this encounter Visit Diagnoses Diagnosis Diffuse large B-cell lymphoma of lymph nodes of multiple regions documented in this encounter Care Teams Sql Database Developer Relationship Specialty Start Date End Date Frederick Meade MD [address] [place] [address] PCP - General Family Medicine 11/29/17 documented as of this encounter
--- OUTSIDE RECORDS SUMMARY | 2023-09-26 02:47 | XMS_ITS | Encounter Summary ---
Author Organization [facility] [place] [address] Care Team Providers Care Cellophane Worker Name Role Phone Frederick Meade MD Primary Care Provider [phone] [phone] Encounter Details Date Type Department Care Team (Late st Contact Info) Description 09/19/2023 Orders Only Hematology [place] [address] Yael Merlos, PUBLIC HEALTH TECHNOLOGIST [facility] DR HEMATOLOGY [place] [address] Diffuse large B-cell lymphoma of lymph nodes [...] AM EDT Infusion Hematology Oncology at [address] [address] 10/03/2023 9:00 AM EDT Office Visit Hematology/Oncology at [address] [address] Adrianne Ramon MD [facility] DR HEMATOLOGY [place] [address] Yael Merlos, KARLA [facility] DR HEMATOLOGY [place] [address] 10/03/2023 9:30 AM EDT Infusion Hematology Oncology at [address] [address] 10/10/2023 8:30 AM EDT Infusion Hematology Oncology at [address] [address] 10/10/2023 2:45 PM EDT Appointment XRay at [address] [place] [address] Micha Givens Jr., MD [facility] DR HEMATOLOGY [place] [address] 10/10/2023 3:00 PM EDT Appointment Non[place] [address] 10/10/2023 3:30 PM EDT Appointment [place] [address] 10/11/2023 8:30 AM EDT Infusion Hematology Oncology at [address] [phone] Scheduled Orders Name Type Priority Associated Diagnoses Orde r Schedule Uric acid Lab STAT Diffuse large B-cell lymphoma of lymph nodes of multiple regions As Needed for 12 Occurrences starting 09/19/2023 until 09/18/2024 documented as of this encounter Visit Diagnoses Diagnosis Diffuse large B-cell lymphoma of lymph nodes of multiple regions documented in this encounter Care Teams Cellophane Worker Relationship Specialty Start Date End Date Frederick Meade MD [address] [place] [address] PCP - General Family Medicine 11/29/17 documented as of this encounter
--- OUTSIDE RECORDS SUMMARY | 2023-09-26 02:47 | XMS_ITS | Encounter Summary ---
Author Organization [facility] [place] [address] Care Team Providers Care Plate Stacker Hand Name Role Phone Frederick Meade MD Primary Care Provider [phone] [phone] Encounter Details Date Type Department Care Team (Latest Contact Info) Description 09/06/2023 9:48 AM EDT - 09/06/2023 10:14 AM EDT Hospital Encounter Hematology [place] [address] Diffuse large B-cell lymphoma of lymph nodes [...] AM EDT Infusion Hematology Oncology at [address] [address] 10/03/2023 9:00 AM EDT Office Visit Hematology/Oncology at [address] [address] Adrianne Ramon MD [facility] DR HEMATOLOGY [place] [address] Yael Merlos, PILOT PLANT RESEARCH TECHNICIAN [facility] HEMATOLOGY [place] [address] 10/03/2023 9:30 AM EDT Infusion Hematology Oncology at [address] [phone] 10/10/2023 8:30 AM EDT Infusion Hematology Oncology at [address] [phone] 10/10/2023 2:45 PM EDT Appointment XRay at [address] [place] [address] Micha Givens Jr., MD [facility] HEMATOLOGY [place] [address] 10/10/2023 3:00 PM EDT Appointment [place] [address] 10/10/2023 3:30 PM EDT [place]ointment [place] [address] 10/11/2023 8:30 AM EDT Infusion Hematology Oncology at [address] [phone] documented as of this encounter Procedures Procedure [...] (ABNORMAL) Differential, Automated (09/06/2023 10:12 AM EDT) Neutrophil % 64.9 % [facility] Neutrophil Absolute 4.20 1.70 - 6.10 x10(3)/mc L [facility] Lymph % 14.1 % [facility] Lymphocytes Abs 0.9 0.9 - 3.2 x10(3)/mc L [facility] Monocyte % 16.7 % [facility] Monocyte Abs 1.1(H) 0.3 - 0.9 x10(3)/mc L [facility] Eos % 3.7 % [facility] Eosinophils Abs 0.2 0.0 - 0.4 x10(3)/mc L [facility] Basophil % 0.3 % [facility] Baso Absolute 0.0 0.0 - 0.1 x10(3)/mc L [facility] Immature Gran % 0.30 % [facility] Comment: Immature granulocytes(IG's)percentage and absolute count will include metamyelocytes, myelocytes, and promyelocytes. Blood smears from CBCs yielding IG's will be scanned manually for concordance. If this scan disagrees with the automated IG or if promyelocytes are noted, a manual differential will be performed. Immature Gran Absolute 0.02 0.00 - 0.04 x10(3)/ L [facility] Blood 09/06/2023 10:1 2 AM EDT 09/06/2023 10:16 AM EDT Narrative Resulting Agency Comment Spec In Lab Adrianne Ramon MD HEMATOLOGY ORDER DUONG [facility] [place] [address] * (ABNORMAL) Hemogram (09/06/2023 10:12 AM EDT) White Blood Cell 6.5 4.0 - 9.5 x10(3)/[facility] Red Blood Cell 3.98(L) 4.58 - 5.54 x10(6)/[facility] Hemoglobin 12.0(L) 13.7 - 16.5 g/dL [facility] Hematocrit 36.5(L) 40.5 - 48.5 % [facility] Mean Cell Volume 91.7 82.9 - 93.1 fL [facility] Mean Cell Hemoglobin 30.2 27.5 - 32.1 pg [facility] Mean Cell Hemoglobin Concentration 32.9 32.0 - 35.7 g/dL [facility] Platelet 145 145 - 357 x10(3)/[facility] RDW Standard Deviation 48.4(H) 36.0 - 45.0 [facility] RDW coefficient of variation 14.4(H) 11.4 - 13.8 % [facility] Mean Platelet Volume 10.3 7.6 - 12.9 fL [facility] NRBC% auto 0.0 % [facility] NRBC Absolute 0.000 0.000 - 0.000 x10(3)/[facility] Blood 09/06/2023 10:1 2 AM EDT 09/06/2023 10:16 AM EDT Narrative Resulting Agency Comment Spec In Lab Adrianne Ramon MD HEMATOLOGY ORDER DUONG Performing Organization Address City/[facility]/ZIP Co de Phone Number [facility] [place] [address] * (ABNORMAL) Lactate Dehydrogenase (09/06/2023 10:12 AM EDT) Lactate Dehydrogenase 251(H) 110 - 220 unit/L [facility] Blood 09/06/2023 10:1 2 AM EDT 09/06/2023 10:16 AM EDT Narrative Resulting Agency Comment Spec In Lab Adrianne Ramon MD CHEMISTRY ORDERA BLES Performing Organization Address [facility]/[place] Co de Phone Number [facility] [place] [address] * (ABNORMAL) Comprehensive metabolic panel (non-fasting) (09/06/2023 10:12 AM EDT) Glucose 170 65 - 199 mg/dL [facility] Comment:Diabetes: >=200 mg/d L plus symptoms Blood Urea Nitrogen 15 10 - 20 mg/dL [facility] Creatinine 1.07 0.80 - 1.50 mg/dL [facility] Sodium 143 135 - 145 mmol/L [facility] Potassium 3.8 3.5 - 5.0 mmol/L [facility] Comment: Please note: ??Patients with WBC >100,000 may have falsely elevated Potassium levels. ??For accurate Potassium quantification in these patients send serum separator tube (gold top) for subsequent determinations. ??Contact the Clinical Chemistry Laboratory if there are any questions. Chloride 107 98 - 107 mmol/L [facility] Carbon Dioxide 25 22 - 31 mmol/L [facility] Anion Gap 11 5 - 15 mmol/L [facility] Calcium 9.2 8.5 - 10.5 mg/dL [facility] Protein, Total 6.1 6.1 - 8.0 g/dL [facility] Albumin 3.7 3.2 - 5.2 g/dL [facility] Aspartate Aminotransferase 37 0 - 39 unit/L [facility] Alanine Aminotransferase 61(H) 0 - 55 unit/L [facility] Alkaline Phosphatase 151(H) 40 - 130 unit/L [facility] Bilirubin, Total 0.3 0.2 - 1.3 mg/dL [facility] Est Glomerular Filtration Rate 72 >=60 mL/min/1. 73 m?? [facility] Comment: This patient's estimated GFR [...] Lab Adrianne Ramon MD CHEMISTRY ORDERA BLES [facility] [place] [address] * Blood culture (09/06/2023 10:12 AM EDT) Blood Culture No growth at 5 days. [facility] Blood ANTECUBITAL REGION STRUCTURE / Unknown 09/06/2023 10:12 AM EDT 09/06/2023 10:31 AM EDT Comment:Peripheral culture Narrative Resulting Agency Comment Spec In Lab Adrianne Ramon MD MICROBIOLOGY - B LOOD ORDERABLES [facility] [place] [address] documented in this encounter Visit Diagnoses Diagnosis Diffuse large B-cell lymphoma of lymph nodes of multiple regions Skin nodule Localized superficial swelling, mass, or lump documented in this encounter Care Teams Plate Stacker Hand Relationship Specialty Start Date End Date Frederick Meade MD [address] [place] [address] PCP - General Family Medicine 11/29/17 documented as of this encounter
--- OUTSIDE RECORDS SUMMARY | 2023-09-26 02:47 | XMS_ITS | Encounter Summary ---
Author Organization [facility] Address [facility] [place] [address] Care Team Providers Care Chief Technician Name Role Phone Frederick Meade MD Primary Care Provider [phone] [phone] Reason for Visit * Reason Onset Date Comments Other 09/13/2023 Financial paperw ork Encounter Details Date Type Department Care Team (Late st Contact Info) Description 09/13/2023 Telephone Hematology/Oncology at [address] [address] Colt Ardon, RN Other (Financial [...] Completed [employer] Access Support forms faxed to [phone], fax confirmed. Copy of application and supporting financial docs scanned into media for reference. documented in this encounter Plan of Treatment Upcoming Encounters Date Type Department Care Team (Late st Contact Info) Description 09/26/2023 8:30 AM EDT Infusion Hematology Oncology at [address] [address] 10/03/2023 9:00 AM EDT Office Visit Hematology/Oncology at [address] [address] Adrianne Ramon MD [facility] HEMATOLOGY [place] [address] Yael Merlos APRN [facility] HEMATOLOGY [place] [address] 10/03/2023 9:30 AM EDT Infusion Hematology Oncology at [address] [address] 10/10/2023 8:30 AM EDT Infusion Hematology Oncology at [address] [address] 10/10/2023 2:45 PM EDT Appointment XRay at [address] [place] [address] Micha Givens Jr., MD [facility] DR HEMATOLOGY [place] [address] 10/10/2023 3:00 PM EDT Appointment Non-[place]vasive [place] [address] 10/10/2023 3:30 PM EDT Appointment [place] [address] 10/11/2023 8:30 AM EDT Infusion Hematology Oncology at [address] [phone] documented as of this encounter Visit Diagnoses Not on filedocumented in this encounter Care Teams Chief Technician Relationship Specialty Start Date End Date Frederick Meade MD [address] [address] PCP - General Family Medicine 11/29/17 documented as of this encounter
--- OUTSIDE RECORDS SUMMARY | 2023-09-26 02:47 | XMS_ITS | Encounter Summary ---
Author Organization [facility] Address [facility] [place] [address] Care Team Providers Care Manufacturing Systems Engineer Name Role Phone Frederick Meade MD Primary Care Provider [phone] [phone] Reason for Visit * Reason Onset Date Comments Other 09/19/2023 Prednisone taper Encounter Details Date Type Department Care Team (Late st Contact Info) Description 09/19/2023 Telephone Hematology/Oncology at [address] [phone] Polly Orellana RN Other (Prednisone taper ) Social History Tobacco Use Types Packs/Day [...] Telephone Encounter - Polly Orellana RN - 09/19/2023 4:44 PM EDT Checked pt's tumor in mouth and on left arm, no changes in size. Reviewed with Dr. Ramon. She wants him to take prednsione taper for 100 mg for 3 days, 80 mg for 3 days, 60 mg for 3 days, 40 mg for 3 days and 20 mg for 3 days. Will start this on Sunday. 2. Reviewed with his and she wrote everything down. She will call with questions. documented in this encounter Plan of Treatment Upcoming Encounters Date Type Department Care Team (Late st Contact Info) Description 09/26/2023 8:30 AM EDT Infusion Hematology Oncology at [address] [address] 10/03/2023 9:00 AM EDT Office Visit Hematology/Oncology at [address] [address] Adrianne Ramon MD [facility] HEMATOLOGY [place] [address] Yael Merlos, NET UI DEVELOPER [facility] HEMATOLOGY [place] [address] 10/03/2023 9:30 AM EDT Infusion Hematology Oncology at [address] [phone] 10/10/2023 8:30 AM EDT Infusion Hematology Oncology at [address] [phone] 10/10/2023 2:45 PM EDT Appointment XRay at [address] [place] [address] Micha Givens Jr., MD [facility] HEMATOLOGY [place] [address] 10/10/2023 3:00 PM EDT Appointment Non-[place] [address] 10/10/2023 3:30 PM EDT Appoint[place] [address] 10/11/2023 8:30 AM EDT Infusion Hematology Oncology at [address] [phone] documented as of this encounter Visit Diagnoses Not on filedocumented in this encounter Care Teams Manufacturing Systems Engineer Relationship Specialty Start Date End Date Frederick Meade MD [address] [place] [address] PCP - General Family Medicine 11/29/17 documented as of this encounter
--- OUTSIDE RECORDS SUMMARY | 2023-09-26 02:47 | XMS_ITS | Encounter Summary ---
Author Organization [facility] [place] [address] Care Team Providers Care Market Consultant Name Role Phone Frederick Meade MD Primary Care Provider [phone] [phone] Encounter Details Date Type Department Care Team (Late st Contact Info) Description 09/14/2023 Telephone Hematology/Oncology at [address] [address] Brenda Priest, RN Social History [...] 09/14/2023 3:11 PM EDT ADD:Sent email to [employer] they will contact [employer] to see what they can get for money for pt. They will update us. Received call from Donita [facility] [employer] ([phone]) stating that they received the application for patient financial assistance for Revlimid. States that there is a Revlimid prescription claim in [facility] which is showing that the patient has met his OOP max. She suggests that we call [facility] and ask that they reverse the claim because patient hasn't received drug. This willallow them to see what his co-pay will be so that they can determine eligibility for financial assistance and free drug. RN call to [facility] spoke with pharmaceutical sales representative who states that the claim was reversed on their end on 09/11 at 5pm. Suggests that I call his insurance to discuss and ask them to reverse the claim. Call to [employer] ([phone]) spoke with someone who transferred me to [employer].Spoke with Marcos at [employer], pharmacy services for claim reversal. Also states that the claim was reversed by [facility] on 09/11, no claim in process at this time. Call to [employer] Access support, spoke with Donita Jimenez - states that this patient is qualified for a toi.They need to apply for this open toi to try before being able to get free drug. lettrs - [phone] or [employer] - can apply by phone or website. documented in this encounter Plan of Treatment Upcoming Encounters Date Type Department Care Team (Late st Contact Info) Description 09/26/2023 8:30 AM EDT Infusion Hematology Oncology at [address] [address] 10/03/2023 9:00 AM EDT Office Visit Hematology/Oncology at [address] [address] Adrianne Ramon MD [facility] HEMATOLOGY [place] [address] Yael Merlos, KARLA [facility] HEMATOLOGY [place] [address] 10/03/2023 9:30 AM EDT Infusion Hematology Oncology at [address] [address] 10/10/2023 8:30 AM EDT Infusion Hematology Oncology at [address] [address] 10/10/2023 2:45 PM EDT Appointment XRay at [address] [place] [address] Micha Givens Jr., MD [facility] HEMATOLOGY [place] [address] 10/10/2023 3:00 PM EDT Appointment Non-[place]vasive [place] [address] 10/10/2023 3:30 PM EDT [place] [address] 10/11/2023 8:30 AM EDT Infusion Hematology Oncology at [address] [address] documented as of this encounter Visit Diagnoses Not on filedocumented in this encounter Care Teams Market Consultant Relationship Specialty Start Date End Date Frederick Meade MD [address] [place] [address] PCP - General Family Medicine 11/29/17 documented as of this encounter
--- OUTSIDE RECORDS SUMMARY | 2023-09-26 02:47 | XMS_ITS | Encounter Summary ---
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 45 tablet 09/21/2023 10/06/2023 loratadine (Claritin) 10 mg Tablet Take 10 [...] Chewable Take 325 mg by mouth daily. lenalidomide (Revlimid) 20 mg capsuleIndications:pr ogressive diffuse large B-cell lymphoma Take 1 capsule (20 mg) by mouth daily for 21 days. Call clinic before starting medication. Indications: progressive diffuse large B-cell lymphoma 09/12/2023 10/03/2023 diphenoxylate-atropin e (Lomotil) 2.5-0.025 mg tablet Take [...] AM EDT Infusion Hematology Oncology at [address] [phone] 10/03/2023 9:00 AM EDT Office Visit Hematology/Oncology at [address] [phone] Adrianne Ramon MD [facility] DR HEMATOLOGY [place] [address] Yael Merlos APRN [facility] [address] HEMATOLOGY [place] [address] 10/03/2023 9:30 AM EDT Infusion Hematology Oncology at [address] [phone] 10/10/2023 8:30 AM EDT Infusion Hematology Oncology at [address] [phone] 10/10/2023 2:45 PM EDT Appointment XRay at [address] [place] [phone] Micha Givens Jr., MD [facility] HEMATOLOGY [place] [address] 10/10/2023 3:00 PM EDT Appointment [place] [address] 10/10/2023 3:30 PM EDT Appointment [place] [address] 10/11/2023 8:30 AM EDT Infusion Hematology Oncology at [address] [phone] Pending Results Name Type Priority Associated Diagnoses [...] regions Stem cell transplant candidate Pre-op testing 1 Occurrences starting 09/21/2023 until 09/21/2023 Comprehensive metabolic panel (non-fasting) Lab Routine 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 Pre-op testing 1 Occurrences starting 09/21/2023 until 09/21/2023 Direct antiglobulin test Lab Routine 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 Pre-op testing 1 Occurrences starting 09/21/2023 until 09/21/2023 Lactate Dehydrogenase Lab Routine 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 Pre-op testing 1 Occurrences starting 09/21/2023 until 09/21/2023 Ferritin Lab Routine Iron deficiency anemia, unspecified iron deficiency anemia type 1 Occurrences starting 09/21/2023 until 09/21/2023 documented as of this encounter Procedures Procedure Name Priority Date/Time Associated Diagnosis Comments BLOOD DONOR SEROLOGIC TESTING Routine 09/21/2023 11:14 AM EDT TYPE AND SCREEN VALIDITY Routine 09/21/2023 11:14 AM EDT HEMOGLOBIN S Routine 09/21/2023 11:14 AM EDT 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 Pre-op testing HGB S SCREEN Routine 09/21/2023 11:14 AM EDT 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 Pre-op testing ABORH RECHECK STATUS Routine 09/21/2023 11:14 AM EDT CRP, ACUTE INFLAMMATION Routine 09/21/2023 11:14 AM EDT 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 Pre-op testing PSA SCREEN Routine 09/21/2023 11:14 AM EDT 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 Pre-op testing Prostate cancer screening CALCIUM IONIZED SERUM Routine 09/21/2023 11:14 AM EDT 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 Pre-op testing HEMOGRAM STAT 09/21/2023 11:14 AM EDT Diffuse large B-cell lymphoma of lymph nodes of multiple regions DIFFERENTIAL, AUTOMATED STAT 09/21/2023 11:14 AM EDT Diffuse large B-cell lymphoma of lymph nodes of multiple regions HSV 1 AND 2 IGG ANTIBODIES Routine 09/21/2023 11:14 AM EDT 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 Pre-op testing ALTON-DOMINGUEZ VIRUS ANTIBODIES Routine 09/21/2023 11:14 AM EDT [...] deficiency anemia, unspecified iron deficiency anemia type TOXOPLASMA ANTIBODY, IGM Routine 09/21/2023 11:14 AM EDT 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 Pre-op testing TOXOPLASMA ANTIBODY, IGG Routine 09/21/2023 11:14 AM EDT 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 Pre-op testing CMV ANTIBODY, IGG Routine 09/21/2023 11: 14 AM EDT 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 Pre-op testing CBC (WITH DIFF) STAT 09/21/2023 11:14 AM EDT Diffuse large B-cell lymphoma of lymph nodes of multiple regions TYPE [place] SCREEN [place]EL[place] Routine 09/21/2023 11:14 AM EDT 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 Pre-op testing DIRECT ANTIGLOBULIN TEST Routine 09/21/2023 11:14 AM EDT VARICELLA ZOSTER ANTIBODY, IGG Routine 09/21/2023 11:14 AM EDT 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 Pre-op testing URIC ACID Routine 09/21/2023 11:14 AM EDT 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 Pre-op testing PHOSPHORUS Routine 09/21/2023 11:14 AM EDT 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 Pre-op testing MAGNESIUM Routine 09/21/2023 11:14 AM EDT 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 Pre-op testing LACTATE DEHYDROGENASE STAT 09/21/2023 11:14 AM EDT Diffuse large B-cell lymphoma of lymph nodes of multiple regions FERRITIN Routine 09/21/2023 11:14 AM EDT 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 Pre-op testing COMPREHENSIVE METABOLIC PANEL STAT 09/21/2023 11:14 AM EDT Diffuse large B-cell lymphoma of lymph nodes of multiple regions URINALYSIS WITH REFLEX CULTURE Routine 09/21/2023 11:11 AM EDT 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 Pre-op testing documented in this encounter Results * Blood Donor Serologic Testing (09/21/2023 11:14 AM EDT) Blood VENOUS BLOOD SPECIMEN / Unknown IP Care Team Draw / Unknown 09/21/2023 11:14 AM EDT 09/25/2023 4:30 PM EDT Micha Givens Jr., MD BLOOD BANK LAB ORDER DUONG [facility] [place] [address] * Direct antiglobulin test (09/21/2023 11:14 AM EDT) WILLIAN Negative [facility] 09/21/2023 11:1 4 AM EDT 09/21/2023 11:14 AM EDT Micha Givens Jr., MD BLOOD BANK LAB ORDER DUONG Performing Organization Address City/[facility]/ZIP Co de Phone Number [facility] [place] [address] * Type and Screen Validity (09/21/2023 11:14 AM EDT) Pathologist [facility] T&S only valid at [facility]ATORY Comment:This Type and Screen result is only valid at the [facility] Blood 09/21/2023 11:1 4 AM EDT 09/21/2023 11:31 AM EDT Narrative Resulting Agency Comment Spec In Lab Micha Givens Jr., MD BLOOD BANK LAB ORDER DUONG [facility] [place] [address] * ABORH Recheck Status (09/21/2023 11:14 AM EDT) ABORH Recheck Order Order Placed [facility] ABORH Type Recheck not performed [facility] Blood 09/21/2023 11:1 4 AM EDT 09/21/2023 11:31 AM EDT Narrative Resulting Agency Comment Spec In Lab Micha Givens Jr., MD BLOOD BANK LAB ORDER DUONG [facility] [place] [address] * (ABNORMAL) Differential, Automated (09/21/2023 11:14 AM EDT) Neutrophil % 90.8 % [facility] Neutrophil Absolute 6.59(H) 1.70 - 6.10 x10(3)/mc L [facility] Lymph % 5.1 % [facility] Lymphocytes Abs 0.4(L) 0.9 - 3.2 x10(3)/mc L [facility] Monocyte % 3.0 % [facility] Monocyte Abs 0.2(L) 0.3 - 0.9 x10(3)/mc L [facility] Eos % 0.4 % [facility] Eosinophils Abs 0.0 0.0 - 0.4 x10(3)/mc L [facility] Basophil % 0.1 % [facility] Baso Absolute 0.0 0.0 - 0.1 x10(3)/mc L [facility] Immature Gran % 0.60 % [facility] Comment: Immature granulocytes(IG's)percentage and absolute count will include metamyelocytes, myelocytes, and promyelocytes. Blood smears from CBCs yielding IG's will be scanned manually for concordance. If this scan disagrees with the automated IG or if promyelocytes are noted, a manual differential will be performed. Immature Gran Absolute 0.04 0.00 - 0.04 x10(3)/mc L [facility] Blood 09/21/2023 11:1 4 AM EDT 09/21/2023 11:30 AM EDT Narrative Resulting Agency Comment Spec In Lab Micha Givens Jr., MD HEMATOLOGY ORDERABLE S [facility] [place] [address] * (ABNORMAL) Hemogram (09/21/2023 11:14 AM EDT) White Blood Cell 7.3 4.0 - 9.5 x10(3)/mc L [facility] Red Blood Cell 4.20(L) 4.58 - 5.54 x10(6)/mc L [facility] Hemoglobin 12.3(L) 13.7 - 16.5 g/dL [facility] Hematocrit 38.4(L) 40.5 - 48.5 % [facility] Mean Cell Volume 91.4 82.9 - 93.1 [facility] Mean Cell Hemoglobin 29.3 27.5 - 32.1 pg [facility] Mean Cell Hemoglobin Concentration 32.0 32.0 - 35.7 g/dL [facility] Platelet 152 145 - 357 x10(3)/mc L [facility] RDW Standard Deviation 48.4(H) 36.0 - 45.0 [facility] RDW coefficient of variation 14.5(H) 11.4 - 13.8 % [facility] Mean Platelet Volume 11.5 7.6 - 12.9 [facility] NRBC% auto 0.0 % [facility] NRBC Absolute 0.000 0.000 - 0.000 x10(3)/[facility]ORAT[facility] Blood 09/21/2023 11:1 4 AM EDT 09/21/2023 11:30 AM EDT Narrative Resulting Agency Comment Spec In Lab Micha Givens Jr., MD HEMATOLOGY ORDERABLE S [facility] [place] [address] * Hemoglobin S Screen (09/21/2023 11:14 AM EDT) HGB S Screen Screen Negative Screen Negative [facility] Blood 09/21/2023 11:1 4 AM EDT 09/21/2023 11:30 AM EDT Narrative Resulting Agency Comment Spec In Lab Micha Givens Jr., MD HEMATOLOGY ORDERABLE S Performing Organization Address City/[facility]/ZIP Co de Phone Number [facility] [place] [address] * Type and screen ([facility]ARCELINA) (09/21/2023 11:14 AM EDT) ABORH Type O NEGATIVE [facility] Patient BB History Not Found [facility] Expires at [id number] on: 09/24/2023 [facility] Ab Screen Interp Negative [facility] Blood 09/21/2023 11:1 4 AM EDT 09/21/2023 11:14 AM EDT Narrative [facility] - 09/21/2023 11:14 AM EDT This Type and Screen result is only valid at the [facility] Resulting Agency Comment Spec In Lab Micha Givens Jr., MD BLOOD BANK LAB ORDER DUONG [facility] [place] [address] * (ABNORMAL) Iron and TIBC (09/21/2023 11:14 AM EDT) Iron 39(L) 45 - 160 mcg/dL [facility] TIBC 255 250 - 450 mcg/dL [facility] Iron Saturation 15(L) 20 - 50 % [facility] Blood 09/21/2023 11:1 4 AM EDT 09/21/2023 11:30 AM EDT Narrative Resulting Agency Comment Spec In Lab Micha Givens Jr., MD CHEMISTRY ORDERABLES Performing Organization Address [facility] de Phone Number [facility] [place] [address] * (ABNORMAL) CRP, acute inflammation (09/21/2023 11:14 AM EDT) C-Reactive Protein 52.8(H) <=4.9 mg/L [facility] Blood 09/21/2023 11:1 4 AM EDT 09/21/2023 11:30 AM EDT Narrative Resulting Agency Comment Spec In Lab Micha Givens Jr., MD CHEMISTRY ORDERABLES Performing Organization Address [facility] de Phone Number [facility] [place] [address] * Ferritin (09/21/2023 11:14 AM EDT) Ferritin 393 31 - 409 ng/mL [facility] Comment: Please note that as of 01/24/2023, the reference intervals for Ferritin have been updated. Blood 09/21/2023 11:1 4 AM EDT 09/21/2023 11:30 AM EDT Narrative Resulting Agency Comment Spec In Lab Micha Givens Jr., MD CHEMISTRY ORDERABLES Performing Organization Address [facility] Co de Phone Number [facility] [place] [address] * Uric acid (09/21/2023 11:14 AM EDT) Uric Acid 5.1 3.5 - 8.5 mg/dL [facility] Blood 09/21/2023 11:1 4 AM EDT 09/21/2023 11:30 AM EDT Narrative Resulting Agency Comment Spec In Lab Micha Givens Jr., MD CHEMISTRY ORDERABLES Performing Organization Address [facility] de Phone Number [facility] [place] [address] * Calcium, Ionized, Serum (09/21/2023 11:14 AM EDT) Ionized Calcium 1.25 1.15 - 1.33 mmol/L [facility] Comment: Note: Total bilirubin higher than 20 mg/dL may lead to falsely low ionized calcium. This test has not been cleared by the [place] FDA. Performance characteristics of this test were determined by [facility] in accordance with CLIA requirements. This laboratory is qualified under CLIA to perform high-complexity testing. Blood 09/21/2023 11:1 4 AM EDT 09/21/2023 11:30 AM EDT Narrative Resulting Agency Comment Spec In Lab Micha Givens Jr., MD CHEMISTRY ORDERABLES Performing Organization Address [facility] de Phone Number [facility] [place] [address] * Toxoplasma Antibody, IgM (09/21/2023 11:14 AM EDT) Toxoplasma Antibody IgM Negative Negative [facility] Blood 09/21/2023 11:1 4 AM EDT 09/21/2023 1:04 PM EDT Narrative Resulting Agency Comment Spec In Lab Micha Givens Jr., MD IMMUNOLOGY ORDERABLE S Performing Organization Address [facility] Co de Phone Number [facility] [place] [address] * Toxoplasma Antibody, IgG (09/21/2023 11:14 AM EDT) Toxoplasma Antibody IgG Negative Negative [facility] Blood 09/21/2023 11:1 4 AM EDT 09/21/2023 1:04 PM EDT Narrative Resulting Agency Comment Spec In Lab Micha Givens Jr., MD IMMUNOLOGY ORDERABLE S Performing Organization Address [facility] Co de Phone Number [facility] [place] [address] * PSA Screen (09/21/2023 11:14 AM EDT) PSA Screen 0.03 0.00 - 4.00 ng/mL [facility] Comment: PLEASE NOTE: [...] Jr., MD CHEMISTRY ORDERABLES Performing Organization Address [facility] de Phone Number [facility] [place] [address] * Phosphorus (09/21/2023 11:14 AM EDT) Phosphorus 2.9 2.5 - 4.5 mg/dL [facility] Blood 09/21/2023 11:1 4 AM EDT 09/21/2023 11:30 AM EDT Narrative Resulting Agency Comment Spec In Lab Micha Givens Jr., MD CHEMISTRY ORDERABLES Performing Organization Address [facility] Co de Phone Number [facility] [place] [address] * Magnesium (09/21/2023 11:14 AM EDT) Magnesium 0.80 0.69 - 1.07 mmol/L [facility] Blood 09/21/2023 11:1 4 AM EDT 09/21/2023 11:30 AM EDT Narrative Resulting Agency Comment Spec In Lab Micha Givens Jr., MD CHEMISTRY ORDERABLES Performing Organization Address [facility]/ZIP Co de Phone Number [facility] [place] [address] * Varicella zoster Antibody, IgG (09/21/2023 11:14 AM EDT) Varicella Zoster Antibody IgG Positive Positive [facility] Comment: A positive result for this assay is considered to be an indicator of positive immune status. Blood 09/21/2023 11:1 4 AM EDT 09/21/2023 1:04 PM EDT Narrative Resulting Agency Comment Spec In Lab Micha Givens Jr., MD IMMUNOLOGY ORDERABLE S Performing Organization Address [facility] Co de Phone Number [facility] [place] [address] * HSV 1 and 2 IgG Antibodies (09/21/2023 11:14 AM EDT) HSV Type 1 Ab, IgG Negative Negative [facility] HSV Type 2 Ab, IgG Negative Negative [facility] Blood 09/21/2023 11:1 4 AM EDT 09/21/2023 1:04 PM EDT Narrative Resulting Agency Comment Spec In Lab Micha Givens Jr., MD IMMUNOLOGY ORDERABLE S Performing Organization Address [facility] Co de Phone Number [facility] [place] [address] * (ABNORMAL) Alton-Dominguez Virus Antibodies (09/21/2023 11:14 AM EDT) EBV (VCA) IgG Ab Positive(A) Negative M BRISA [facility] EBV (VCA) IgM Ab Negative Negative MAR Y [facility] EBNA Antibodies Positive(A) Negative MA LELA [facility] EBV Interpretation Past EBV infection. [facility] Comment: In most [...] MD IMMUNOLOGY ORDERABLE S Performing Organization Address [facility] Co de Phone Number [facility] [place] [address] * CMV Antibody, IgM (09/21/2023 11:14 AM EDT) CMV IgM Negative Negative [facility] Blood 09/21/2023 11:1 4 AM EDT 09/21/2023 1:04 PM EDT Narrative Resulting Agency Comment Spec In Lab Micha Givens Jr., MD IMMUNOLOGY ORDERABLE S Performing Organization Address [facility] Co de Phone Number [facility] [place] [address] * CMV Antibody, IgG (09/21/2023 11:14 AM EDT) CMV IgG Negative Negative [facility] Blood 09/21/2023 11:1 4 AM EDT 09/21/2023 1:04 PM EDT Narrative Resulting Agency Comment Spec In Lab Micha Givens Jr., MD IMMUNOLOGY ORDERABLE S Performing Organization Address [facility] Co de Phone Number [facility] [place] [address] * (ABNORMAL) Lactate Dehydrogenase (09/21/2023 11:14 AM EDT) Lactate Dehydrogenase 426(H) 110 - 220 unit/L [facility] Blood 09/21/2023 11:1 4 AM EDT 09/21/2023 11:30 AM EDT Narrative Resulting Agency Comment Spec In Lab Micha Givens Jr., MD CHEMISTRY ORDERABLES [facility] [place] [address] * (ABNORMAL) Comprehensive metabolic panel (non-fasting) (09/21/2023 11:14 AM EDT) Glucose 326(H) 65 - 199 mg/dL [facility] Comment:Diabetes: >=200 mg/d L plus symptoms Blood Urea Nitrogen 26(H) 10 - 20 mg/dL [facility] Creatinine 1.16 0.80 - 1.50 mg/dL [facility] Sodium 138 135 - 145 mmol/L [facility] Potassium 4.0 3.5 - 5.0 mmol/L [facility] Comment: Please note: ??Patients with WBC >100,000 may have falsely elevated Potassium levels. ??For accurate Potassium quantification in these patients send serum separator tube (gold top) for subsequent determinations. ??Contact the Clinical Chemistry Laboratory if there are any questions. Chloride 103 98 - 107 mmol/L [facility] Carbon Dioxide 21(L) 22 - 31 mmol/L [facility] Anion Gap 14 5 - 15 mmol/L [facility] Calcium 9.5 8.5 - 10.5 mg/dL [facility] Protein, Total 6.3 6.1 - 8.0 g/dL [facility] Albumin 3.9 3.2 - 5.2 g/dL [facility] Aspartate Aminotransferase 54(H) 0 - 39 unit/L [facility] Alanine Aminotransferase 72(H) 0 - 55 unit/L [facility] Alkaline Phosphatase 202(H) 40 - 130 unit/L [facility] Bilirubin, Total 0.4 0.2 - 1.3 mg/dL [facility] Est Glomerular Filtration Rate 66 >=60 mL/min/1. 73 m?? [facility] Comment: This patient's [...] Lab Micha Givens Jr., MD CHEMISTRY ORDERABLES [facility] [place] [address] * Urinalysis with reflex Culture (09/21/2023 11:11 AM EDT) Glucose, Urine Dipstick Negative Negative mg/dL [facility] Protein, Urine Dipstick Negative Negative mg/dL [facility] Bilirubin, Urine Dipstick Negative Negative mg/dL [facility] Comment: Clinical correlation required for positive Urine Bilirubin results as false positive may occur with some drugs and drug related products. If a false positive is suspected a serum total bilirubin should be considered if clinically indicated. Urobilinogen, Urine Dipstick Normal Normal mg/dL [facility] pH, Urn (dipstick) 6.5 5.0 - 8.0 [facility] Blood, Urine Dipstick Negative Negative mg/dL [facility] Ketone, Urine Dipstick Negative Negative mg/dL [facility] Nitrite, Urine Dipstick Negative Negative [facility] Leukocytes, Urine Dipstick Negative Negative [facility] LABORATORY Appearance, Urine Dipstick Clear Clear [facility] Specific [place] Urine Automated 1.009 1.005 - 1.030 [facility] Color, Urine Dipstick Yellow Yellow [facility] Reflex to Culture No [facility] Clean Catch Urine 09/21/2023 11:11 AM EDT 09/21/2023 11:33 AM EDT Narrative Resulting Agency Comment Spec In Lab Micha Givens Jr., MD URINE ORDERABLES [facility] [place] [address] documented in this encounter Visit Diagnoses Diagnosis 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 Pre-op testing Preoperative examination, unspecified Prostate cancer screening Special screening for malignant neoplasm of prostate Iron deficiency anemia, unspecified iron deficiency anemia type documented in this encounter Care Teams Fiber Technician Relationship Specialty Start Date End Date Frederick Meade MD [address] [place] [address] PCP - General Family Medicine 11/29/17 documented as of this encounter
--- OUTSIDE RECORDS SUMMARY | 2023-09-26 02:47 | XMS_ITS | Encounter Summary ---
Author Organization [facility] [place] [address] Care Team Providers Care Sap Specialist Name Role Phone Frederick Meade MD Primary Care Provider [phone] Encounter Details Date Type Department Care Team (Late st Contact Info) Description 09/20/2023 Orders Only [place] [address] Micha Givens Jr., MD [facility] DR HEMATOLOGY [place] [address] Diffuse large B-cell lymphoma of lymph nodes [...] AM EDT Infusion Hematology Oncology at [address] [address] 10/03/2023 9:00 AM EDT Office Visit Hematology/Oncology at [address] [address] Adrianne Ramon MD [facility] DR HEMATOLOGY [place] [address] Yael Merlos, KARLA [facility] DR HEMATOLOGY [place] [address] 10/03/2023 9:30 AM EDT Infusion Hematology Oncology at [address] [address] 10/10/2023 8:30 AM EDT Infusion Hematology Oncology at [address] [address] 10/10/2023 2:45 PM EDT Appointment XRay at [address] [place] [address] Micha Givens Jr., MD [facility] DR HEMAT[place] [address] 10/10/2023 3:00 PM EDT Appointment Non-[place]vasive [place] [address] 10/10/2023 3:30 PM EDT [place] [address] 10/11/2023 8:30 AM EDT Infusion Hematology Oncology at [address] [address] documented as of this encounter Results * (ABNORMAL) Lactate Dehydrogenase (09/21/2023 11:14 AM EDT) Pathologist [facility] Lactate Dehydrogenase 426(H) 110 - 220 unit/L [facility] Blood 09/21/2023 11:1 4 AM EDT 09/21/2023 11:30 AM EDT Narrative Resulting Agency Comment Spec In Lab Micha Givens Jr., MD CHEMISTRY ORDERABLES [facility] [place] [address] * (ABNORMAL) Comprehensive metabolic panel (non-fasting) (09/21/2023 11:14 AM EDT) Glucose 326(H) 65 - 199 mg/dL [facility] Comment:Diabetes: >=200 mg/d L plus symptoms Blood Urea Nitrogen 26(H) 10 - 20 mg/dL [facility] Creatinine 1.16 0.80 - 1.50 mg/dL [facility] Sodium 138 135 - 145 mmol/L [facility] Potassium 4.0 3.5 - 5.0 mmol/L [facility] Comment: Please note: ??Patients with WBC >100,000 may have falsely elevated Potassium levels. ??For accurate Potassium quantification in these patients send serum separator tube (gold top) for subsequent determinations. ??Contact the Clinical Chemistry Laboratory if there are any questions. Chloride 103 98 - 107 mmol/L [facility] Carbon Dioxide 21(L) 22 - 31 mmol/L [facility] Anion Gap 14 5 - 15 mmol/L [facility] Calcium 9.5 8.5 - 10.5 mg/dL [facility] Protein, Total 6.3 6.1 - 8.0 g/dL [facility] Albumin 3.9 3.2 - 5.2 g/dL [facility] Aspartate Aminotransferase 54(H) 0 - 39 unit/L [facility] Alanine Aminotransferase 72(H) 0 - 55 unit/L [facility] Alkaline Phosphatase 202(H) 40 - 130 unit/L [facility] Bilirubin, Total 0.4 0.2 - 1.3 mg/dL [facility] Est Glomerular Filtration Rate 66 >=60 mL/min/1. 73 m?? [facility] Comment: This patient's [...] Lab Micha Givens Jr., MD CHEMISTRY ORDERABLES [facility] [place] [address] documented in this encounter Visit Diagnoses Diagnosis Diffuse large B-cell lymphoma of lymph nodes of multiple regions documented in this encounter Care Teams Sap Specialist Relationship Specialty Start Date End Date Frederick Meade MD [address] [place] [address] PCP - General Family Medicine 11/29/17 documented as of this encounter
--- OUTSIDE RECORDS SUMMARY | 2023-09-26 02:47 | XMS_ITS | Encounter Summary ---
Author Organization [facility] [place] [address] Care Team Providers Care Winch Operator Name Role Phone Frederick Meade MD Primary Care Provider [phone] Encounter Details Date Type Department Care Team (Latest Contact Info) Description 09/21/2023 Travel Social History Tobacco Use Types Packs/Day [...] 8:30 AM EDT Infusion Hematology Oncology at [address] [address] 10/03/2023 9:00 AM EDT Office Visit Hematology/Oncology at [address] [address] [facility] HEMATOLOGY [place] [address] [facility] HEMATOLOGY [place] [address] 10/03/2023 9:30 AM EDT Infusion Hematology Oncology at [address] [address] 10/10/2023 8:30 AM EDT Infusion Hematology Oncology at [address] [address] 10/10/2023 2:45 PM EDT Appointment XRay at [address] [place] [phone] Micha Givens Jr., MD [facility] HEMATOLOGY [place] [address] 10/10/2023 3:00 PM EDT Appointment Non[place] [address] 10/10/2023 3:30 PM EDT Appointment [place] [address] 10/11/2023 8:30 AM EDT Infusion Hematology Oncology at [address] [address] documented as of this encounter Visit Diagnoses Not on filedocumented in this encounter Care Teams Winch Operator Relationship Specialty Start Date End Date Frederick Meade MD [address] [place] [address] PCP - General Family Medicine 11/29/17 documented as of this encounter
--- OUTSIDE RECORDS SUMMARY | 2023-09-26 02:47 | XMS_ITS | Encounter Summary ---
Author Organization [facility] Address [facility] [place] [address] Care Team Providers Care Corporate Buyer Name Role Phone Frederick Meade MD Primary Care Provider [phone] Reason for Visit * Reason Comments Chemotherapy * Treatment/Therapy Plan Authorization (Routine) - Authorized Specialty Diagnoses / Procedures Referred By Contac t Referred To Contact Hematology and Oncology Diagnoses Diffuse large B-cell lymphoma of lymph nodes of multiple regions Adrianne Ramon MD [facility] DR HEMATOLOGY [place] [address] Stj Hem Onc Infusion [address] [place] [address] Referral ID Status Reason Start Date Expiration Date V isits Requested Visits Authorized [id number] Authorized 09/12/2023 09/11/2024 99 99 Encounter Details Date Type Department Care Team (Late st Contact Info) Description 09/19/2023 8:00 AM EDT Infusion Hematology Oncology at [address] [address] Diffuse large B-cell lymphoma of lymph nodes of multiple regions Social History Tobacco Use Types Packs/Day Years Used Date Smoking Tobacco: Former Cigarettes Q uit: 1986 Smokeless Tobacco: Former Quit: 02/19/1986 Comments:started smoking [...] Sign Reading Time Taken Comments Blood Pressure 132/54 09/19/2023 8:16 AM EDT Pulse 77 09/19/2023 8:16 AM EDT Temperature 36.2 ??C (97.2 ??F) 09/19/2023 8:16 AM ED T Respiratory Rate 18 09/19/2023 8:16 AM EDT Oxygen Saturation 98% 09/19/2023 8:16 AM EDT Inhaled Oxygen Concentration - - Weight 92.3 kg (203 lb 6.4 oz) 09/19/2023 8:16 A M EDT Height 168.6 cm (5' 6.38) 09/19/2023 8:16 AM ED T Body Mass Index 32.46 09/19/2023 8:16 AM EDT documented in this encounter Progress Notes * Joaquina Haque, RN - 09/19/2023 8:00 AM EDT INFUSION THERAPY ADMINISTRATION NOTES DIAGNOSIS: DLBCL CYCLE #: C1D1 REASON FOR VISIT: Rituxan SUBJECTIVE Cheo offers no complaints, he met with provider prior to infusion, ready for treatment. OBJECTIVE LAB DATA: completed today at [facility] Pre administration: Chemotherapy orders independently verified for drug name, route, and dosage per patient's height, weight and BSA by JOAQUINA HAQUE RN and pharmacist onsite. REACTIONS (DESCRIPTION, TIME, INTERVENTION AND EFFECTIVENESS) none ASSESSMENT Rituxan administered at first time rate Cheo was awake, alert and he tolerated treatment well. PLAN Return to clinic per routine. documented in this encounter Plan of Treatment Upcoming Encounters Date Type Department Care Team (Late st Contact Info) Description 09/26/2023 8:30 AM EDT Infusion Hematology Oncology at [address] [address] 10/03/2023 9:00 AM EDT Office Visit Hematology/Oncology at [address] [address] Adrianne Ramon MD [facility] [place] [address] Yael Merlos APRN [facility] HEMATOLOGY [place] [address] 10/03/2023 9:30 AM EDT Infusion Hematology Oncology at [address] [address] 10/10/2023 8:30 AM EDT Infusion Hematology Oncology at [address] [address] 10/10/2023 2:45 PM EDT Appointment XRay at [address] [place] [address] Micha Givens Jr., MD [facility] DR HEMATOLOGY [place] [address] 10/10/2023 3:00 PM EDT Appointment Non-[place] [phone] 10/10/2023 3:30 PM EDT Appointment [place] [address] 10/11/2023 8:30 AM EDT Infusion Hematology Oncology at [address] [address] documented as of this encounter Visit Diagnoses Diagnosis Diffuse large B-cell lymphoma of lymph nodes of multiple regions documented in this encounter Administered Medications Inactive Administered Medications - up to 3 most recent administrations Medication Order MAR Action Action Date Dose Rate Site acetaminophen (Tylenol) tablet 650 mg 650 mg, Oral, ONCE, 1 dose, On Sun09/19/23 at 0915, Administer prior to riTUXimab., Routine Given 09/19/2023 9:02 AM EDT 650 mg dexAMETHasone (Decadron) tablet 10 mg 10 mg, Oral, ONCE, 1 dose, On Sun09/19/23 at 0945, Administer prior to riTUXimab, Routine Given 09/19/2023 9:02 AM EDT 10 mg diphenhydrAMINE (Benadryl) capsule 50 mg 50 mg, Oral, ONCE, 1 dose, On Sun09/19/23 at 0915, Administer prior to riTUXimab, Routine Given 09/19/2023 9:02 AM EDT 50 mg riTUXimab-pvvr (Ruxience) 800 mg in sodium chloride 0.9% 400 mL infusion 800 mg (rounded from 780 mg = 375 mg/m2/dose ? 2.08 m2 Treatment Plan BSA from Recorded weight), Intravenous, ONCE, 1 dose, On Sun09/19/23 at 1015, Administer Per Protocol, Is this product being used for treatment of malignant indication? Yes, Patient is a candidate for rapid infusion riTUXimab? No New Bag 09/19/2023 10:05 AM EDT 800 mg sodium chloride 0.9% infusion 150 mL/hr, Intravenous, CONTINUOUS, Starting on Sun09/19/23 at 0915, Until Sun09/19/23 at 1655 New Bag 09/19/2023 9:05 AM EDT 150 mL/hr 150 mL/hr documented in this encounter Care Teams Corporate Buyer Relationship Specialty Start Date End Date Frederick Meade MD [address] [place] [address] PCP - General Family Medicine 11/29/17 documented as of this encounter
--- OUTSIDE RECORDS SUMMARY | 2023-09-26 02:47 | XMS_ITS | Encounter Summary ---
Author Organization [facility] Address [facility] [place] [address] Care Team Providers Care Bad Cloth Checker Name Role Phone Frederick Meade MD Primary Care Provider [phone] Encounter Details Date Type Department Care Team (Late st Contact Info) Description 09/12/2023 Telephone Hematology/Oncology at [address] [address] Ardianne Ramon MD [facility] DR HEMAT[place]Y [place] [address] Social History Tobacco Use Types Packs/Day Years [...] AM EDT Infusion Hematology Oncology at [address] [address] 10/03/2023 9:00 AM EDT Office Visit Hematology/Oncology at [address] [address] Adrianne Ramon MD [facility] HEMATOLOGY [place] [address] Yael Merlos, KARLA [facility] HEMATOLOGY [place] [address] 10/03/2023 9:30 AM EDT Infusion Hematology Oncology at [address] [address] 10/10/2023 8:30 AM EDT Infusion Hematology Oncology at [address] [address] 10/10/2023 2:45 PM EDT Appointment XRay at [address] [place] [address] Micha Givens Jr., MD [facility] DR HEMAT[place] [address] 10/10/2023 3:00 PM EDT Appointment [place] [address] 10/10/2023 3:30 PM EDT [place]oint[place] [address] 10/11/2023 8:30 AM EDT Infusion Hematology Oncology at [address] [phone] documented as of this encounter Visit Diagnoses Diagnosis Diffuse large B-cell lymphoma of lymph nodes of multiple regions documented in this encounter Care Teams Bad Cloth Checker Relationship Specialty Start Date End Date Frederick Meade MD [address] [place] [address] PCP - General Family Medicine 11/29/17 documented as of this encounter
--- OUTSIDE RECORDS SUMMARY | 2023-09-26 02:47 | XMS_ITS | Encounter Summary ---
[place] [address] Care Team Providers Care Collar Stitcher Name Role Phone Frederick Meade MD Primary Care Provider [phone] [phone] Reason for Referral * Diagnostic Test (Routine) - Authorized Specialty Diagnoses / Procedures Referred By Paul t Referred To Contact Cardiology Diagnoses Diffuse large B-cell lymphoma of lymph nodes of multiple regions High risk medication use Procedures Echocardiogram Transthoracic Adrianne Ramon MD [facility] DR HEMATOLOGY [place] [address] Referral ID Status Reason Start Date Expiration Date Visits Requested Visits Authorized [id number] Authorized Specialty Service Requested 09/12/2023 03/10/2024 1 1 * Consultation (Routine) - Closed Specialty Diagnoses / Procedures Referred By Contdamir t Referred To Contact Hematology and Oncology Diagnoses Diffuse large B-cell lymphoma of lymph nodes of multiple regions Adrianne Ramon MD [facility] DR HEMATOLOGY [place] [address] [facility] Hem Onc [address] [place] [address] Referral ID Status Reason Start Date Expiration Date V isits Requested Visits Authorized [id number] Closed Specialty Service Requested 09/12/2023 09/11/2024 1 1 Encounter Details Date Type Department Care Team (Late st Contact Info) Description 09/12/2023 10:15 AM EDT Office Visit Hematology/Oncology at [address] [address] Adrianne Ramon MD [facility] HEMATOLOGY [place] [address] Yael Merlos, CHAR FILTER TANK TENDER HEAD [facility] [place]OLOGY [place] [address] Diffuse large B-cell lymphoma of lymph nodes [...] original note were not included. Hematology Clinic [facility] [address] HEMATOLOGY PATIENT EVALUATION PROBLEM LIST: Patient Active Problem List Diagnosis Abnormal echocardiogram Diffuse large B-cell lymphoma of lymph nodes of multiple regions Anemia, iron deficiency Gout Malignant neoplasm of prostate HISTORY OF PRESENT ILLNESS: Patient prefers to be called: Cheo Support person(s) : Claritza son Cheo tiwari - Sarath It was my pleasure to [...] to consultation, he saw [facility] and when to [facility]. No beds so sent to [facility] for [address] CAP, MRI, and biopsies there. He reports that he was treated forpresumed infection (presumed acute retropharyngeal abscess) with Augmentin and dexamethasone. Therewas also question of whether he may have been having an allergic reaction to lisinopril. He was discharged off of steroids. He then saw Dr. Raímrez urgently on 10/05/2022, who performed 2 biopsies, oneof the tonsil, and 1 needle biopsy of a right post cervical lymph node. Dr. Gloria started prednisone 60 mg daily x7 days with nice response. Pathology from [facility] reports large B-cell lymphoma. Double expresser. FISH for translocations are pending. Tongue swelling. No wt loss. Eating and drinking OK. No fevers, infections, No NS. Pain in neck. Prednisone 60mg daily X 7 days. I feel great on prednisone last day of prednisone is today. Took iron supplements per PCP - unclear cause. - last COLO at [facility] was 01/17/2012. INTERIM HISTORY OF [...] and needle of cervical LN. FISH from [place] No MYCrearrangement and no fusion of MYC [...] only 1 biologic. Son Cheo Freire. Enjoys [employer], [employer], [employer], [employer]. [employer]. 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 Not a . ETOH: 1-3 beers per week Smoking: Quit 1985. Approximately 18-ssfo-xoai history Vaping or electronic cigarettes: denies Chewing tobacco: denies Marijuana or other recreational drug use: none HIPPA Contact Permission: John. Also OK to talk to Delia adult children. OK to leave message with medical information on home or cell phone: home phone PHYSICAL EXAM There were no vitals taken for this visit. GENERAL: Cheo Freire is a delightful 73-year old male in NAD. He is accompanied to the clinic by [...] and BCL-2 protein (Double Expressor.) Flow cytometry ([id number]) supports this interpretation. FISH from [place] No MYC rearrangement and no fusion of MYC and IGH was observed, CD3 (SP7, [employer]) Background T-cells CD20 (L26, [place]) diffusely positive in Neoplastic B-cells PAX-5 (1EW, [employer]) diffusely positive in Neoplastic B-cells CD10 (SP67, [place]) Negative BCL-6 (G/191E/A8, [place]) Positive MUM-1 (MUM1p, [employer]) Positive Myc (Y69, [employer]) Positive BCL-2 Oncoprotein (124, [place]) Positive Ki67 (MIB-1) (K2, [employer]) Greater than 95% of cells in cycle Cyclin D1(SP4-R, [place]) Negative SAPPHIRE JOSE (CSS3214-M, [employer]) Negative. DIAGNOSTICS: 01/25/23 ECHO after C#5 [...] 08/22/2023 left upper extremity ultrasound performed at [facility] Notable findings: In the left [...] undergo investigation with ultrasound. CT CAP at [facility], report and images have been [...] at least 1 month spent locally at [facility] and local hospital. Unfortunately, because ofhis age, [...] concepts, and the time it entails at [facility]. This would be a significant commitment for the patient and his family as they live [place] from [facility]. They feel comfortable that they have the [...] a report of increase in arterial thrombosis (CVA/NM) as well. This risk is very small. [...] LVEF at 50-55%. --asymptomatic --repeat echo at [facility] 1 year post completion of [...] from 09/06/23 biopsy Repeat ECHO when at [facility] for CAR-T cell discussion Referral to CAR-T [...] AM EDT Infusion Hematology Oncology at [address] [phone] 10/03/2023 9:00 AM EDT Office Visit Hematology/Oncology at [address] [address] Adrianne Ramon MD [facility] HEMATOLOGY [place] [address] Yael Merlos, KARLA [facility] HEMATOLOGY [place] [address] 10/03/2023 9:30 AM EDT Infusion Hematology Oncology at [address] [phone] 10/10/2023 8:30 AM EDT Infusion Hematology Oncology at [address] [address] 10/10/2023 2:45 PM EDT Appointment XRay at [address] [place] [address] Micha Givens Jr., MD [facility] DR HEMATOLOGY [place] [address] 10/10/2023 3:00 PM EDT Appointment Non[place] [address] 10/10/2023 3:30 PM EDT Appointment [place] [address] 10/11/2023 8:30 AM EDT Infusion Hematology Oncology at [address] [address] Scheduled Orders Name Type Priority Associated Diagnoses [...] medications documented in this encounter Care Teams Collar Stitcher Relationship Specialty Start Date End Date Frederick Meade MD [address] [place] [address] [address] [place] [address] PCP - General Family Medicine 11/29/17 documented as of this encounter
--- OUTSIDE RECORDS SUMMARY | 2023-09-26 02:47 | XMS_ITS | Encounter Summary ---
Author Organization [facility] [place] [address] Care Team Providers Care Stenotypist Name Role Phone Frederick Meade MD Primary Care Provider +1 -[phone] Reason for Visit * Reason Comments Advice Only * Consultation (Routine) - Closed Specialty Diagnoses / Procedures Referred By Contac t Referred To Contact Hematology and Oncology Diagnoses Diffuse large B-cell lymphoma of lymph nodes of multiple regions Adrianne Ramon MD [facility] [address] [place] [address] [facility] Hem Onc [address] [place] [address] Referral ID Status Reason Start Date Expiration Date V isits Requested Visits Authorized [id number] Closed Specialty Service Requested 09/12/2023 09/11/2024 1 1 Encounter Details Date Type Department Care Team (Late st Contact Info) Description 09/21/2023 9:30 AM EDT Office Visit [place] [address] Micha Givens Jr., MD [facility] [address] [place] [address] Arrived Social History Tobacco Use Types Packs/Day Years [...] Mass Index 31.83 09/21/2023 9:11 AM EDT documented in this encounter Plan of Treatment Upcoming Encounters Date Type Department Care Team (Late st Contact Info) Description 09/26/2023 8:30 AM EDT Infusion Hematology Oncology at [address] [address] 10/03/2023 9:00 AM EDT Office Visit Hematology/Oncology at [address] [address] Adrianne Ramon MD [facility] HEMATOLOGY [place] [address] Yael Merlos APRN [facility] [place] [address] 10/03/2023 9:30 AM EDT Infusion Hematology Oncology at [address] [address] 10/10/2023 8:30 AM EDT Infusion Hematology Oncology at [address] [address] 10/10/2023 2:45 PM EDT Appointment XRay at [address] [place] [address] Micha Givens Jr., MD [facility] HEMATOLOGY [place] [address] 10/10/2023 3:00 PM EDT Appointment Non-[place]vasive [place] [address] 10/10/2023 3:30 PM EDT [place] [address] 10/11/2023 8:30 AM EDT Infusion Hematology Oncology at [address] [address] Scheduled Referrals Name Type Priority Associated Diagnoses Order Schedule Referral to Bone Marrow Transplant Team Outpatient Referral Routine Diffuse large B-cell lymphoma of lymph nodes of multiple regions Ordered: 09/12/2023 documented as of this encounter Visit Diagnoses Not on filedocumented in this encounter Care Teams Stenotypist Relationship Specialty Start Date End Date Frederick Meade MD [address] [place] [address] PCP - General Family Medicine 11/29/17 documented as of this encounter
--- OUTSIDE RECORDS SUMMARY | 2023-09-26 02:47 | XMS_ITS | Encounter Summary ---
Author Organization [facility] Address [facility] [place] [address] Care Team Providers Care Director Financial Services Name Role Phone Frederick Meaed MD Primary Care Provider +1 -[phone] Reason for Visit * Reason Onset Date Comments New Medication Request 09/12/2023 revlimid Encounter Details Date Type Department Care Team (Late st Contact Info) Description 09/12/2023 Telephone Hematology/Oncology at [address] [address] Polly Orellana, OSCAR New Medication Request (revlimid) Social History Tobacco [...] Prescriber online survey done 09/12/23 with the [employer] Revlimid REMS Program Revlimid Auth # [id number] Pt Survey done on 09/12/23 Prescription to be manually faxed to [employer] [phone] phone [phone] after obtaining signature Adrianne Ramon MD Script [...] AM EDT Infusion Hematology Oncology at [address] [address] 10/03/2023 9:00 AM EDT Office Visit Hematology/Oncology at [address] [address] Adrianne Ramon MD [facility] HEMATOLOGY [place] [address] Yael Merlos APRN [facility] HEMATOLOGY [place] [address] 10/03/2023 9:30 AM EDT Infusion Hematology Oncology at [address] [phone] 10/10/2023 8:30 AM EDT Infusion Hematology Oncology at [address] [address] 10/10/2023 2:45 PM EDT Appointment XRay at [address] [place] [address] Micha Givens Jr., MD [facility] HEMATOLOGY [place] [address] 10/10/2023 3:00 PM EDT Appointment Non-[place] [address] 10/10/2023 3:30 PM EDT Appointment [place] [address] 10/11/2023 8:30 AM EDT Infusion Hematology Oncology at [address] [address] documented as of this encounter Visit Diagnoses Not on filedocumented in this encounter Care Teams Director Financial Services Relationship Specialty Start Date End Date Frederick Meade MD [address] [place] [address] PCP - General Family Medicine 11/29/17 documented as of this encounter
--- OUTSIDE RECORDS SUMMARY | 2023-09-26 02:47 | XMS_ITS | Encounter Summary ---
Author Organization [facility] [place] [place] [address] Care Team Providers Care Rounder And Backer Name Role Phone Frederick Meade MD Primary Care Provider +1 -[phone] Encounter Details Date Type Department Care Team [...] AM EDT Infusion Hematology Oncology at [address] [address] 10/03/2023 9:00 AM EDT Office Visit Hematology/Oncology at [address] [address] Adrianne Ramon MD [facility] HEMATOLOGY [place] [address] Yael Merlos APRN [facility] [place] [address] 10/03/2023 9:30 AM EDT Infusion Hematology Oncology at [address] [address] 10/10/2023 8:30 AM EDT Infusion Hematology Oncology at [address] [address] 10/10/2023 2:45 PM EDT Appointment XRay at [address] [place] [address] Micha Givens Jr., MD [facility] HEMATOLOGY [place] [address] 10/10/2023 3:00 PM EDT Appointment Non-[place]vasive [place] [address] 10/10/2023 3:30 PM EDT Appointment [place] [address] 10/11/2023 8:30 AM EDT Infusion Hematology Oncology at [address] [address] documented as of this encounter Visit Diagnoses Not on filedocumented in this encounter Care Teams Rounder And Backer Relationship Specialty Start Date End Date Frederick Meade MD [address] [place] [address] PCP - General Family Medicine 11/29/17 documented as of this encounter
--- OUTSIDE RECORDS SUMMARY | 2023-09-26 02:47 | XMS_ITS | Encounter Summary ---
Author Organization [facility] [place] [address] Care Team Providers Care Pharmaceutical Operator Name Role Phone Frederick Meade MD Primary Care Provider +1 -[phone] Encounter Details Date Type Department Care Team (Latest Contact Info) Description 09/19/2023 Travel Social History Tobacco Use Types Packs/Day [...] AM EDT Infusion Hematology Oncology at [address] [address] 10/03/2023 9:00 AM EDT Office Visit Hematology/Oncology at [address] [address] Adrianne Ramon MD [facility] HEMATOLOGY [place] [address] Yael Merlos APRN [facility] HEMATOLOGY [place] [address] 10/03/2023 9:30 AM EDT Infusion Hematology Oncology at [address] [address] 10/10/2023 8:30 AM EDT Infusion Hematology Oncology at [address] [address] 10/10/2023 2:45 PM EDT Appointment XRay at [address] [place] [address] Micha Givens Jr., MD [facility] HEMATOLOGY [place] [address] 10/10/2023 3:00 PM EDT Appointment Non-[place]vasive [place] [address] 10/10/2023 3:30 PM EDT Appointment [place] [address] 10/11/2023 8:30 AM EDT Infusion Hematology Oncology at [address] [address] documented as of this encounter Visit Diagnoses Not on filedocumented in this encounter Care Teams Pharmaceutical Operator Relationship Specialty Start Date End Date Frederick Meade MD [address] [place] [address] PCP - General Family Medicine 11/29/17 documented as of this encounter
--- OUTSIDE RECORDS SUMMARY | 2023-09-26 02:47 | XMS_ITS | Encounter Summary ---
Author Organization [facility] Address [facility] [place] [address] Care Team Providers Care Transcription Name Role Phone Frederick Meade MD Primary Care Provider +1 -[phone] Encounter Details Date Type Department Care Team (Late st Contact Info) Description 09/19/2023 Orders Only [place]ematology [place] [address] Adrianne Ramon MD [facility] DR HEMATOLOGY [place] [address] Social History Tobacco Use Types Packs/Day Years [...] as of this encounter Progress Notes * Adrianne Ramon MD - 09/19/2023 4:25 PM EDT Revlamid expected on 09/24/23 documented in this encounter Plan of Treatment Upcoming Encounters Date Type Department Care Team (Late st Contact Info) Description 09/26/2023 8:30 AM EDT Infusion Hematology Oncology at [address] [address] 10/03/2023 9:00 AM EDT Office Visit Hematology/Oncology at [address] [address] Adrianne Ramon MD [facility] HEMATOLOGY [place] [address] Yael Merlos APRN [facility] HEMATOLOGY [place] [address] 10/03/2023 9:30 AM EDT Infusion Hematology Oncology at [address] [address] 10/10/2023 8:30 AM EDT Infusion Hematology Oncology at [address] [address] 10/10/2023 2:45 PM EDT Appointment XRay at [address] [place] [address] Micha Givens Jr., MD [facility] HEMATOLOGY [place] [address] 10/10/2023 3:00 PM EDT Appointment Non-[place] [address] 10/10/2023 3:30 PM EDT Appoint[place] [address] 10/11/2023 8:30 AM EDT Infusion Hematology Oncology at [address] [address] documented as of this encounter Visit Diagnoses Not on filedocumented in this encounter Care Teams Transcription Relationship Specialty Start Date End Date Frederick Meade MD [address] [place] [address] [address] PCP - General Family Medicine 11/29/17 documented as of this encounter
--- OUTSIDE RECORDS SUMMARY | 2023-09-26 02:47 | XMS_ITS | Encounter Summary ---
Author Organization [facility] Address [facility] [place] [address] Care Team Providers Care Injection Molding Process Technician Name Role Phone Frederick Meade MD Primary Care Provider +1 -[phone] Reason for Visit * Reason Onset Date Comments Follow-up 09/19/[address] obrien thru [facility] Encounter Details Date Type Department Care Team (Late st Contact Info) Description 09/19/2023 Telephone Hematology/Oncology at [address] [address] Polly Orellana, OSCAR Follow-up (Possible free drug thru [facility]) Social History Tobacco Use Types Packs/Day Years [...] Encounter - Polly Orellana RN - 09/19/2023 11:05 AM EDT Spoke with [employer] pt assistance foundation. Pt at present received revlimid with a copay of 157$ after getting $4000 thru [employer]. He is getting drug from [facility]. When next script is sent in if pt still has high copay and there is no funding we can call [employer] at [phone] fax [phone] and request assistance for pt again and they will resubmit the paper work they have on him for free drug. documented in this encounter Plan of Treatment Upcoming Encounters Date Type Department Care Team (Late st Contact Info) Description 09/26/2023 8:30 AM EDT Infusion Hematology Oncology at [address] [phone] 10/03/2023 9:00 AM EDT Office Visit Hematology/Oncology at [address] [phone] Adrianne Ramon MD [facility] DR [place] [address] PoquosonYael jason APRN [facility] HEMATOLOGY [place] [address] 10/03/2023 9:30 AM EDT Infusion Hematology Oncology at [address] [phone] 10/10/2023 8:30 AM EDT Infusion Hematology Oncology at [address] [address] 10/10/2023 2:45 PM EDT Appointment XRay at [address] [place] [address] Micha Givens Jr., MD [facility] HEMATOLOGY [place] [address] 10/10/2023 3:00 PM EDT Appointment Non-Invasive [place] [address] 10/10/2023 3:30 PM EDT Appointment [place] [address] 10/11/2023 8:30 AM EDT Infusion Hematology Oncology at [address] [phone] documented as of this encounter Visit Diagnoses Not on filedocumented in this encounter Care Teams Injection Molding Process Technician Relationship Specialty Start Date End Date Frederick Meade MD [address] [place] [address] [address] PCP - General Family Medicine 11/29/17 documented as of this encounter
--- OUTSIDE RECORDS SUMMARY | 2023-09-26 02:48 | XMS_ITS | Encounter Summary ---
Author Organization [facility] [place] [address] Care Team Providers Care Senior Clinical Research Scientist Name Role Phone Frederick Meade MD Primary Care Provider +1 -[phone] Encounter Details Date Type Department Care Team [...] AM EDT Infusion Hematology Oncology at [address] [address] 10/03/2023 9:00 AM EDT Office Visit Hematology/Oncology at [address] [address] Adrianne Ramon MD [facility] HEMATOLOGY [place] [address] Yael Merlos APRN [facility] [place] [address] 10/03/2023 9:30 AM EDT Infusion Hematology Oncology at [address] [address] 10/10/2023 8:30 AM EDT Infusion Hematology Oncology at [address] [address] 10/10/2023 2:45 PM EDT Appointment XRay at [address] [place] [address] Micha Givens Jr., MD [facility] HEMATOLOGY [place] [address] 10/10/2023 3:00 PM EDT Appointment Non-[place]vasive [place] [address] 10/10/2023 3:30 PM EDT Appointment [place] [address] 10/11/2023 8:30 AM EDT Infusion Hematology Oncology at [address] [address] documented as of this encounter Visit Diagnoses Not on filedocumented in this encounter Care Teams Senior Clinical Research Scientist Relationship Specialty Start Date End Date Frederick Meade MD [address] [place] [address] PCP - General Family Medicine 11/29/17 documented as of this encounter
--- OUTSIDE RECORDS SUMMARY | 2023-09-26 02:48 | XMS_ITS | Encounter Summary ---
[place] [address] Care Team Providers Care Certified Nutritionist Name Role Phone Frederick Meade MD Primary Care Provider +1 -[phone] Reason for Visit * Diagnostic Test (Routine) - Closed Specialty Diagnoses / Procedures Referred By Contac t Referred To Contact Radiology Diagnoses Diffuse large B-cell lymphoma of lymph nodes of multiple regions Procedures NM PET CT Standard Plus Extremities and Head Yael Merlos COUNTER POCKET TRIMMER [facility] HEMATOLOGY [place] [address] [place] [address] Referral ID Status Reason Start Date Expiration Date V isits Requested Visits Authorized [id number] Closed Specialty Service Requested 12/20/2022 06/19/2024 1 1 Encounter Details Date Type Department Care Team (Latest Contact Info) Description 01/05/2023 7:19 AM EST - 01/05/2023 11:59 PM [facility] Hospital En[place] [address] Yael Merlos COUNTER POCKET TRIMMER [facility] HEMATOLOGY [place] [address] Discharge Disposition: Home Social History [...] Chewable Take 325 mg by mouth daily. diphenoxylate-atropin e (Lomotil) [...] times daily as needed. Reported on 05/24/2016 vancomycin (Vancocin) 125 mg capsule Take 1 [...] AM EDT Infusion Hematology Oncology at [address] [address] 10/03/2023 9:00 AM EDT Office Visit Hematology/Oncology at [address] [address] Adrianne Ramon MD [facility] DR HEMATOLOGY [place] [address] Yael Merlos, COUNTER POCKET TRIMMER [facility] HEMATOLOGY [place] [address] 10/03/2023 9:30 AM EDT Infusion Hematology Oncology at [address] [address] 10/10/2023 8:30 AM EDT Infusion Hematology Oncology at [address] [address] 10/10/2023 2:45 PM EDT Appointment XRay at [address] [place] [address] Micha Givens Jr., MD [facility] DR HEMATOLOGY [place] [address] 10/10/2023 3:00 PM EDT Appointment Non-[place]vasive [place] [address] 10/10/2023 3:30 PM EDT Appointment [place] [address] 10/11/2023 8:30 AM EDT Infusion Hematology Oncology at [address] [address] documented as of this encounter Procedures Procedure Name Priority Date/Time Associated Diagnosis Comments NM PET CT STANDARD PLUS EXTREMITIES AND HEAD Routine 01/05/2023 9:05 AM EST Diffuse large B-cell lymphoma of lymph nodes of multiple regions POCT GLUCOSE Routine 01/05/2023 7:26 AM EST documented in this encounter Results * POCT Glucose (01/05/2023 7:26 AM EST) Glucose, POC 124 65 - 199 mg/dL [facility] Comment: Supplemental ranges: <140 mg/dL before meals <180 mg/dL all other times of the day Blood 01/05/2023 7:26 AM EST 01/05/2023 7:26 AM EST Yael Merlos COUNTER POCKET TRIMMER POINT OF CARE TEST ORDERABLES [facility] [place] [address] documented in this encounter Visit Diagnoses Not on filedocumented in this encounter Care Teams Certified Nutritionist Relationship Specialty Start Date End Date Frederick Meade MD [address] [place] [address] PCP - General Family Medicine 11/29/17 documented as of this encounter
--- OUTSIDE RECORDS SUMMARY | 2023-09-26 02:48 | XMS_ITS | Encounter Summary ---
Author Organization [facility] [place] [address] Care Team Providers Care Armhole Baster Hand Name Role Phone Frederick Meade MD Primary Care Provider +1 -[phone] Reason for Visit * Reason Comments Chemotherapy [id number] * Treatment/Therapy Plan Authorization (Routine) - Closed [...] CYCLOPHOSPHAMIDE, 100MG (CYTOXAN) Adrianne Ramon MD [facility] [address] [place] [address] [facility] [address] [place] [address] Referral ID Status Reason Start Date Expiration Date Visits Re quested Visits Authorized [id number] Closed 10/11/2022 10/11/2023 1 100 Encounter Details Date Type Department Care Team (Late st Contact Info) Description 01/10/2023 9:00 AM EST Infusion Hematology Oncology at [address] [address] Diffuse large B-cell lymphoma of [...] treatment. OBJECTIVE LAB DATA: completed today at [facility] Pre administration: Chemotherapy orders independently verified [...] AM EDT Infusion Hematology Oncology at [address] [address] 10/03/2023 9:00 AM EDT Office Visit Hematology/Oncology at [address] [address] Adrianne Ramon MD [facility] HEMATOLOGY [place] [address] Yael Merlos APRN [facility] HEMATOLOGY [place] [address] 10/03/2023 9:30 AM EDT Infusion Hematology Oncology at [address] [address] 10/10/2023 8:30 AM EDT Infusion Hematology Oncology at [address] [address] 10/10/2023 2:45 PM EDT Appointment XRay at [address] [place] [address] Micha Givens Jr., MD [facility] HEMATOLOGY [place] [address] 10/10/2023 3:00 PM EDT Appointment Non-Invasive [place] [address] 10/10/2023 3:30 PM EDT Appointment [place] [address] 10/11/2023 8:30 AM EDT Infusion Hematology Oncology at [address] [address] documented as of this [...] 2 minutes is a recommendation from the roll tender. Administer prior to chemotherapy., Routine Given 01/10/2023 [...] (IV) Procedure: Accessing Implanted Vascular Access Devices (784) procedure and/or Intravenous (IV) Job Aid: Adult Flushing & Catheter Care (1551) job aid for additional information regarding guidelines [...] 0914, Until Sun01/10/23 at 1634, Line Care, Flush pertains to all indwelling lines. Flush per protocol found in the job aid using the link provided on this medication record. Refer to Intravenous (IV) Job Aid: Adult Flushing & Catheter Care (4442) job aid for additional information regarding guidelines [...] mL/hr documented in this encounter Care Teams Armhole Baster Hand Relationship Specialty Start Date End Date Frederick Meade MD [address] [place] [address] PCP - General Family Medicine 11/29/17 documented as of this encounter
--- OUTSIDE RECORDS SUMMARY | 2023-09-26 02:48 | XMS_ITS | Encounter Summary ---
Author Organization [facility] [place] [address] Care Team Providers Care Event Decorator And Designer Name Role Phone Frederick Meade MD Primary Care Provider +1 -[phone] Reason for Visit * Reason Comments Chemotherapy [...] [facility] [address] [place] [address] [facility] [address] [place] [address] Referral ID Status Reason Start Date Expiration Date Visits Re quested Visits Authorized [id number] Closed 10/11/2022 10/11/2023 1 100 Encounter Details Date Type Department Care Team (Late st Contact Info) Description 01/31/2023 9:00 AM EST Infusion Hematology Oncology at [address] [address] Diffuse large B-cell lymphoma of [...] treatment. OBJECTIVE LAB DATA: completed today at [facility] Pre administration: Chemotherapy orders independently verified [...] AM EDT Infusion Hematology Oncology at [address] [address] 10/03/2023 9:00 AM EDT Office Visit Hematology/Oncology at [address] [address] Adrianne Ramon MD [facility] HEMATOLOGY [place] [address] Yael Merlos, KARLA [facility] HEMATOLOGY [place] [address] 10/03/2023 9:30 AM EDT Infusion Hematology Oncology at [address] [address] 10/10/2023 8:30 AM EDT Infusion Hematology Oncology at [address] [address] 10/10/2023 2:45 PM EDT Appointment XRay at [address] [place] [address] Micha Givens Jr., MD [facility] HEMATOLOGY [place] [address] 10/10/2023 3:00 PM EDT Appointment Non-Invasive Cardiology [place] [address] 10/10/2023 3:30 PM EDT Appointment [place] [address] 10/11/2023 8:30 AM EDT Infusion Hematology Oncology at [address] [address] documented as of this encounter [...] 2 minutes is a recommendation from the cardiology associate. Administer prior to chemotherapy., Routine Given 01/31/2023 [...] (IV) Procedure: Accessing Implanted Vascular Access Devices (584) procedure and/or Intravenous (IV) Job Aid: Adult Flushing & Catheter Care (2070) job aid for additional information regarding guidelines [...] Job Aid: Adult Flushing & Catheter Care (4936) job aid for additional information regarding guidelines [...] mL/hr documented in this encounter Care Teams Event Decorator And Designer Relationship Specialty Start Date End Date Frederick Meade MD [address] [facility] [place] [address] PCP - General Family Medicine 11/29/17 documented as of this encounter
--- OUTSIDE RECORDS SUMMARY | 2023-09-26 02:48 | XMS_ITS | Encounter Summary ---
Author Organization [facility] [place] [address] Care Team Providers Care Certified Registered Nurse Anesthetist Name Role Phone Frederick Meade MD Primary Care Provider [phone] [phone] Encounter Details Date Type Department Care Team [...] AM EDT Infusion Hematology Oncology at [address] [address] 10/03/2023 9:00 AM EDT Office Visit Hematology/Oncology at [address] [address] Adrianne Ramon MD [facility] HEMATOLOGY [place] [address] Yael Merlos APRN [facility] HEMATOLOGY [place] [address] 10/03/2023 9:30 AM EDT Infusion Hematology Oncology at [address] [address] 10/10/2023 8:30 AM EDT Infusion Hematology Oncology at [address] [address] 10/10/2023 2:45 PM EDT Appointment XRay at [address] [place] [phone] Micha Givens Jr., MD [facility] HEMATOLOGY [place] [address] 10/10/2023 3:00 PM EDT Appointment [place] [phone] 10/10/2023 3:30 PM EDT Appointment [place] [address] 10/11/2023 8:30 AM EDT Infusion Hematology Oncology at [address] [address] documented as of this encounter Visit Diagnoses Not on filedocumented in this encounter Care Teams Certified Registered Nurse Anesthetist Relationship Specialty Start Date End Date Frederick Meade MD [address] [place] [address] PCP - General Family Medicine 11/29/17 documented as of this encounter
--- OUTSIDE RECORDS SUMMARY | 2023-09-26 02:48 | XMS_ITS | Encounter Summary ---
Author Organization [facility] [place] [address] Care Team Providers Care Tag Writer Name Role Phone Frederick Meade MD Primary Care Provider [phone] Encounter Details Date Type Department Care Team [...] AM EDT Infusion Hematology Oncology at [address] [address] 10/03/2023 9:00 AM EDT Office Visit Hematology/Oncology at [address] [address] Adrianne Ramon MD [facility] HEMATOLOGY [place] [address] Yael Merlos APRN [facility] HEMATOLOGY [place] [address] 10/03/2023 9:30 AM EDT Infusion Hematology Oncology at [address] [address] 10/10/2023 8:30 AM EDT Infusion Hematology Oncology at [address] [address] 10/10/2023 2:45 PM EDT Appointment XRay at [address] [place] [phone] Micha Givens Jr., MD [facility] HEMATOLOGY [place] [address] 10/10/2023 3:00 PM EDT Appointment Non-[place] [phone] 10/10/2023 3:30 PM EDT Appointment [place] [address] 10/11/2023 8:30 AM EDT Infusion Hematology Oncology at [address] [address] documented as of this encounter Visit Diagnoses Not on filedocumented in this encounter Care Teams Tag Writer Relationship Specialty Start Date End Date Frederick Meade MD [address] [place] [address] PCP - General Family Medicine 11/29/17 documented as of this encounter
--- OUTSIDE RECORDS SUMMARY | 2023-09-26 02:48 | XMS_ITS | Encounter Summary ---
[place] [address] Care Team Providers Care Qc Tech Name Role Phone Frederick Meade MD Primary Care Provider [phone] [phone] Reason for Referral * Diagnostic Test (Routine) - Closed Specialty Diagnoses / Procedures Referred By Contac t Referred To Contact Radiology Diagnoses Diffuse large B-cell lymphoma of lymph nodes of multiple regions Procedures NM PET CT Skull Base to Mid-thigh Yael Merlos WAX PATTERN ASSEMBLER [facility] [place] [address] [place] [address] Referral ID Status Reason Start Date Expiration Date V isits Requested Visits Authorized [id number] Closed Specialty Service Requested 01/15/2023 07/15/2024 1 1 Reason for Visit * Diagnostic Test (Routine) - Closed Specialty Diagnoses / Procedures Referred By Contac t Referred To Contact Radiology Diagnoses Diffuse large B-cell lymphoma of lymph nodes of multiple regions Procedures NM PET CT Skull Base to Mid-thigh Yael Merlos WAX PATTERN ASSEMBLER [facility] [place] [address] [place] [address] Referral ID Status Reason Start Date Expiration Date V isits Requested Visits Authorized [id number] Closed Specialty Service Requested 01/15/2023 07/15/2024 1 1 Encounter Details Date Type Department Care Team (Latest Contact Info) Description 03/06/2023 7:52 AM EST - 03/06/2023 11:59 PM EST Hospital Encounter [place] [phone] Yael Merlos APRN [facility] [address] [place] [address] 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 Cardiva MedicalTOUCH ULTRA BLUE TEST STRIP Strip USE TO [...] times daily as needed. Reported on 05/24/2016 tamsulosin (Flomax) 0.4 mg capsule Take 0.4 [...] AM EDT Infusion Hematology Oncology at [address] [address] 10/03/2023 9:00 AM EDT Office Visit Hematology/Oncology at [address] [address] Adrianne Ramon MD [facility] [address] [place] [address] Yael Merlos APRN [facility] [place] [address] 10/03/2023 9:30 AM EDT Infusion Hematology Oncology at [address] [phone] 10/10/2023 8:30 AM EDT Infusion Hematology Oncology at [address] [phone] 10/10/2023 2:45 PM EDT Appointment XRay at [address] [place] [address] Micha Givens Jr., MD [facility] [place] [address] 10/10/2023 3:00 PM EDT Appointment Non-[place]vasive [place] [address] 10/10/2023 3:30 PM EDT [place]ointment [place] [address] 10/11/2023 8:30 AM EDT Infusion Hematology Oncology at [address] [phone] documented as of this encounter Procedures Procedure [...] who have questions please contact the health critical care cns that requested your imaging first. ? Narrative 03/08/2023 11:33 AM EST EXAMINATION: NM PET CT STANDARD SKULL BASE TO MID-THIGH CLINICAL HISTORY: Hematologic malignancy, assess treatment response History of diffuse large B-cell lymphoma, status post 6 cycles of RCHOP. TECHNIQUE: Following IV injection of 58-sswmlp-4-deoxyglucose (FDG) a standard uptake of approximately 60 [...] of RCHOP. TECHNIQUE: Following IV injection of 51-qkcidv-1-deoxyglucose (FDG) astandard uptake of approximately 60 minutes, [...] patients who have questions please contactthe health critical care cns that requested your imaging first. Yael Merlos WAX PATTERN ASSEMBLER IMG PET ORDERABLES documented in this encounter Visit Diagnoses Diagnosis Diffuse large B-cell lymphoma of lymph nodes of multiple regions documented in this encounter Administered Medications Inactive Administered Medications - up to 3 most recent administrations Medication Order MAR Action Action Date Dose Rate Site fludeoxyglucose (F-18) FDG injection 0-20 mCi 0-20 mCi, Intravenous, ONCE PRN, 1 dose, Starting on Tu03/06/23 at 0811, Until Sun03/06/23 at 0808, Per Protocol, Radiology Contrast, Routine Given 03/06/2023 8:08 AM EST 13.7 mCi Implanted Port documented in this encounter Care Teams Qc Tech Relationship Specialty Start Date End Date Frederick Meade MD [address] [facility] [address] [place] [address] PCP - General Family Medicine 11/29/17 documented as of this encounter
--- OUTSIDE RECORDS SUMMARY | 2023-09-26 02:48 | XMS_ITS | Encounter Summary ---
Author Organization [facility] [place] [address] Care Team Providers Care Boxing Machine Operator Name Role Phone Frederick Meade MD Primary Care Provider [phone] [phone] Encounter Details Date Type Department Care Team [...] AM EDT Infusion Hematology Oncology at [address] [address] 10/03/2023 9:00 AM EDT Office Visit Hematology/Oncology at [address] [address] Adrianne Ramon MD [facility] HEMATOLOGY [place] [address] Yael Merlos APRN [facility] HEMATOLOGY [place] [address] 10/03/2023 9:30 AM EDT Infusion Hematology Oncology at [address] [address] 10/10/2023 8:30 AM EDT Infusion Hematology Oncology at [address] [address] 10/10/2023 2:45 PM EDT Appointment XRay at [address] [place] [phone] Micha Givens Jr., MD [facility] HEMATOLOGY [place] [address] 10/10/2023 3:00 PM EDT Appointment Non-[place]vasive [place] [phone] 10/10/2023 3:30 PM EDT Appointment [place] [address] 10/11/2023 8:30 AM EDT Infusion Hematology Oncology at [address] [address] documented as of this encounter Visit Diagnoses Not on filedocumented in this encounter Care Teams Boxing Machine Operator Relationship Specialty Start Date End Date Frederick Meade MD [address] [place] [address] PCP - General Family Medicine 11/29/17 documented as of this encounter
--- OUTSIDE RECORDS SUMMARY | 2023-09-26 02:48 | XMS_ITS | Encounter Summary ---
[place] [address] Care Team Providers Care Guard Range Name Role Phone Frederick Meade MD Primary Care Provider [phone] [phone] Reason for Referral * Diagnostic Test (Routine) - Closed Specialty Diagnoses / Procedures Referred By Contac t Referred To Contact Radiology Diagnoses Diffuse large B-cell lymphoma of lymph nodes of multiple regions Procedures IR Mediport Removal Yael Merlos FERRY PILOT [facility] HEMATOLOGY [place] [address] [facility] [place] [address] Referral ID Status Reason Start Date Expiration Date V isits Requested Visits Authorized [id number] Closed Specialty Service Requested 03/15/2023 09/12/2024 1 1 Encounter Details Date Type Department Care Team (Late st Contact Info) Description 03/15/2023 Orders Only Hematology [place] [address] Yael Merlos FERRY PILOT [facility] HEMATOLOGY [place] [address] Diffuse large B-cell lymphoma of [...] AM EDT Infusion Hematology Oncology at [address] [address] 10/03/2023 9:00 AM EDT Office Visit Hematology/Oncology at [address] [address] Adrianne Ramon MD [facility] HEMATOLOGY [place] [address] Yael Merlos APRN [facility] HEMATOLOGY [place] [address] 10/03/2023 9:30 AM EDT Infusion Hematology Oncology at [address] [phone] 10/10/2023 8:30 AM EDT Infusion Hematology Oncology at [address] [phone] 10/10/2023 2:45 PM EDT Appointment XRay at [address] [place] [address] Micha Givens Jr., MD [facility] HEMATOLOGY [place] [address] 10/10/2023 3:00 PM EDT Appointment Non-[place]vasive [place] [address] 10/10/2023 3:30 PM EDT Appointment [place] [address] 10/11/2023 8:30 AM EDT Infusion Hematology Oncology at [address] [phone] documented as of this encounter Results * IR Mediport Removal (03/29/2023 2:32 PM EST) Anatomical Region Laterality Modality X-Ray Angiograph y Narrative 2023 1:04 PM EST Interventional Radiology Procedure Note Procedure: Chest port explant Indication: Lymphoma, therapy complete, discontinue residential central venous access for chemotherapy Pre-procedure: Informed [...] venous port with all components accounted for. 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
--- OUTSIDE RECORDS SUMMARY | 2023-09-26 02:48 | XMS_ITS | Encounter Summary ---
[place] [address] Care Team Providers Care Microbiological Analyst Name Role Phone Frederick Meade MD Primary Care Provider +1 [phone] Reason for Referral * Diagnostic Test (Routine) - Closed Specialty Diagnoses / Procedures Referred By Contac t Referred To Contact Radiology Diagnoses Diffuse large B-cell lymphoma of lymph nodes of multiple regions Procedures NM PET CT Standard Plus Extremities and Head Yael Merlos APRN [facility] DR HEMATOLOGY [place] [address] [place] [address] Referral ID Status Reason Start Date Expiration Date V isits Requested Visits Authorized [id number] Closed Specialty Service Requested 12/20/2022 06/19/2024 1 1 Reason for Visit * Diagnostic Test (Routine) - Closed Specialty Diagnoses / Procedures Referred By Contac t Referred To Contact Radiology Diagnoses Diffuse large B-cell lymphoma of lymph nodes of multiple regions Procedures NM PET CT Standard Plus Extremities and Head Yael Merlos APRN [facility] HEMATOLOGY [place] [address] [place] [address] Referral ID Status Reason Start Date Expiration Date V isits Requested Visits Authorized [id number] Closed Specialty Service Requested 12/20/2022 06/19/2024 1 1 Encounter Details Date Type Department Care Team (Latest Contact Info) Description 01/05/2023 7:19 AM EST - 01/05/2023 11:59 PM EST Hospital Encounter Nuclear Medicine at [facility] [place] [phone] Yael Merlos APRN [facility] DR HEMATOLOGY [place] [address] 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 Med[employer] Healthcare SystemsTOUCH ULTRA BLUE TEST STRIP Strip USE TO [...] AM EDT Infusion Hematology Oncology at [address] [phone] 10/03/2023 9:00 AM EDT Office Visit Hematology/Oncology at [address] [address] Adrianne Ramon MD [facility] HEMATOLOGY [place] [address] Yael Merlos APRN [facility] HEMATOLOGY [place] [address] 10/03/2023 9:30 AM EDT Infusion Hematology Oncology at [address] [address] 10/10/2023 8:30 AM EDT Infusion Hematology Oncology at [address] [phone] 10/10/2023 2:45 PM EDT Appointment XRay at [address] [place] [address] Micha Givens Jr., MD [facility] HEMATOLOGY [place] [address] 10/10/2023 3:00 PM EDT Appointment Non-[place]vasive [place] [address] 10/10/2023 3:30 PM EDT Appointment [place] [address] 10/11/2023 8:30 AM EDT Infusion Hematology Oncology at [address] [phone] documented as of this encounter Procedures Procedure [...] have questions please contact the health health care manager that requested your imaging first. ? Electronically signed by: Fletcher Duckworth MD, [facility] ([phone]), at 01/05/2023 9:50 AM Narrative 01/05/2023 9:50 AM EST EXAMINATION: NM PET CT STANDARD PLUS EXTREMITIES AND HEAD CLINICAL HISTORY: Hematologic malignancy, assess treatment response Non-Hodgkin lymphoma TECHNIQUE: Procedure: Following IV injection of 24-irzpuc-4-deoxyglucose (FDG) a standard uptake of approximately 60 [...] lymphoma TECHNIQUE: Procedure: Following IV injection of 26-bodbfp-5-deoxyglucose(FDG) a standard uptake of approximately 60 minutes, [...] of the left upper lobe (image [phone] [id number]). These foci are new since the prior [...] who have questions please contactthe health health care manager that requested your imaging first. Electronically signed by: Fletcher Duckworth MD, [facility]([phone]), at 01/05/2023 9:50 AM Yael Merlos RECOVERY ENGINEER IMG PET ORDERABLES documented in this encounter [...] Arm documented in this encounter Care Teams Microbiological Analyst Relationship Specialty Start Date End Date Frederick Meade MD [address] [place] [address] PCP - General Family Medicine 11/29/17 documented as of this encounter
--- OUTSIDE RECORDS SUMMARY | 2023-09-26 02:48 | XMS_ITS | Encounter Summary ---
Author Organization [facility] [place] [address] Care Team Providers Care Receptionist Telephone Operator Name Role Phone Frederick Meade MD Primary Care Provider [phone] Encounter Details Date Type Department Care Team (Latest Contact Info) Description 03/06/2023 7:23 AM EST - 03/06/2023 7:51 AM EST Hospital Encounter Hematology [place] [address] Non-Hodgkin lymphoma of lymph nodes of multiple [...] AM EDT Infusion Hematology Oncology at [address] [phone] 10/03/2023 9:00 AM EDT Office Visit Hematology/Oncology at [address] [address] Adrianne Ramon MD [facility] HEMATOLOGY [place] [address] Yael Merlos, KARLA [facility] HEMATOLOGY [place] [address] 10/03/2023 9:30 AM EDT Infusion Hematology Oncology at [address] [address] 10/10/2023 8:30 AM EDT Infusion Hematology Oncology at [address] [address] 10/10/2023 2:45 PM EDT Appointment XRay at [address] [place] [address] Micha Givens Jr., MD [facility] [place] [address] 10/10/2023 3:00 PM EDT Appointment Non-Invasive Cardiology [place] [address] 10/10/2023 3:30 PM EDT [facility] [place] [address] 10/11/2023 8:30 AM EDT Infusion Hematology Oncology at [address] [phone] Scheduled Orders Name Type Priority [...] Procedure Name Priority Date/Time Associated Diagnosis Comments IMMUNOGLOBULINS, QUANTITATIVE STAT 03/06/2023 7:45 AM EST Non-Hodgkin lymphoma [...] of multiple regions CBC (WITH DIFF) STAT 03/06/2023 7:45 AM EST Non-Hodgkin lymphoma of lymph nodes of multiple regions, unspecified non-Hodgkin lymphoma type Diffuse large B-cell lymphoma of lymph nodes of multiple regions URIC ACID STAT 03/06/2023 7:45 AM EST Non-Hodgkin lymphoma of lymph nodes of multiple regions, unspecified non-Hodgkin lymphoma type Diffuse large B-cell lymphoma of lymph nodes of multiple regions LACTATE DEHYDROGENASE STAT 03/06/2023 7:45 AM EST Non-Hodgkin lymphoma of lymph nodes of multiple regions, unspecified non-Hodgkin lymphoma type Diffuse large B-cell lymphoma of lymph nodes of multiple regions COMPREHENSIVE METABOLIC PANEL STAT 03/06/2023 7:45 AM EST Non-Hodgkin lymphoma of lymph nodes of multiple regions, unspecified non-Hodgkin lymphoma type Diffuse large B-cell lymphoma of lymph nodes of multiple regions documented in this encounter Results * (ABNORMAL) Differential, Automated (03/06/2023 7:45 AM EST) Neutrophil % 56.0 % [facility] Neutrophil Absolute 3.23 1.70 - 6.10 x10(3)/mc L [facility] Lymph % 12.1 % [facility] Lymphocytes Abs 0.7(L) 0.9 - 3.2 x10(3)/mc L [facility] Monocyte % 20.5 % [facility] Monocyte Abs 1.2(H) 0.3 - 0.9 x10(3)/mc L [facility] Eos % 10.2 % [facility] Eosinophils Abs 0.6(H) 0.0 - 0.4 x10(3)/ L [facility] Basophil % 1.0 % [facility] Baso Absolute 0.1 0.0 - 0.1 x10(3)/ L [facility] Immature Gran % 0.20 % [facility] Comment: Immature granulocytes(IG's)percentage and absolute count will include metamyelocytes, myelocytes, and promyelocytes. Blood smears from CBCs yielding IG's will be scanned manually for concordance. If this scan disagrees with the automated IG or if promyelocytes are noted, a manual differential will be performed. Immature Gran Absolute 0.01 0.00 - 0.04 x10(3)/ L [facility] Blood 03/06/2023 7:45 AM EST 03/06/2023 8:00 AM EST Narrative Resulting Agency Comment Spec In Lab Adrianne Ramon MD HEMATOLOGY ORDER DUONG [facility] [place] [address] * (ABNORMAL) Hemogram (03/06/2023 7:45 AM EST) White Blood Cell 5.8 4.0 - 9.5 x10(3)/ L [facility] Red Blood Cell 3.67(L) 4.58 - 5.54 x10(6)/ L [facility] Hemoglobin 11.3(L) 13.7 - 16.5 g/dL [facility] Hematocrit 34.5(L) 40.5 - 48.5 % [facility] Mean Cell Volume 94.0(H) 82.9 - 93.1 fL [facility] Mean Cell Hemoglobin 30.8 27.5 - 32.1 pg [facility] Mean Cell Hemoglobin Concentration 32.8 32.0 - 35.7 g/dL [facility] Platelet 211 145 - 357 x10(3)/ L [facility] RDW Standard Deviation 54.8(H) 36.0 - 45.0 fL [facility] RDW coefficient of variation 15.9(H) 11.4 - 13.8 % [facility] Mean Platelet Volume 10.2 7.6 - 12.9 fL [facility] NRBC% auto 0.0 % [facility] NRBC Absolute 0.000 0.000 - 0.000 x10(3)/mc L [facility] Blood 03/06/2023 7:45 AM EST 03/06/2023 8:00 AM EST Narrative Resulting Agency Comment Spec In Lab Adrianne Ramon MD HEMATOLOGY ORDER DUONG [facility] [place] [address] * (ABNORMAL) Comprehensive metabolic panel (non-fasting) (03/06/2023 7:45 AM EST) Glucose 133 65 - 199 mg/dL [facility] Comment:Diabetes: >=200 mg/d L plus symptoms Blood Urea Nitrogen 12 10 - 20 mg/dL [facility] Creatinine 0.94 0.80 - 1.50 mg/dL [facility] Sodium 143 135 - 145 mmol/L [facility] Potassium 3.7 3.5 - 5.0 mmol/L [facility] Comment: Please note: ??Patients with WBC >100,000 may have falsely elevated Potassium levels. ??For accurate Potassium quantification in these patients send serum separator tube (gold top) for subsequent determinations. ??Contact the Clinical Chemistry Laboratory if there are any questions. Chloride 108(H) 98 - 107 mmol/L [facility] Carbon Dioxide 23 22 - 31 mmol/L [facility] Anion Gap 12 5 - 15 mmol/L [facility] Calcium 9.6 8.5 - 10.5 mg/dL [facility] Protein, Total 6.4 6.1 - 8.0 g/dL [facility] Albumin 4.1 3.2 - 5.2 g/dL [facility] Aspartate Aminotransferase 22 0 - 39 unit/L [facility] Alanine Aminotransferase 18 0 - 55 unit/L [facility] Alkaline Phosphatase 103 40 - 130 unit/L [facility] Bilirubin, Total 0.2 0.2 - 1.3 mg/dL [facility] Est Glomerular Filtration Rate 85 >=60 mL/min/1. 73 m?? [facility] Comment: This patient's estimated GFR was [...] CHEMISTRY ORDERA BLES Performing Organization Address City/[facility]/ZIP Co de Phone Number [facility] [place] [address] * (ABNORMAL) Immunoglobulins, Quantitative (03/06/2023 7:45 AM EST) Immunoglobulin G 572(L) 700 - 1,600 mg/dL [facility] Comment: Pediatric Reference Intervals obtained from the Caliper Reference Interval project. http://www.Joyhound.ca/caliperproject/index.html IgA 118 70 - 400 mg/dL [facility] IgM 123 40 - 230 mg/dL [facility] Blood 03/06/2023 7:45 AM EST 03/06/2023 8:00 AM EST Narrative Resulting Agency Comment Spec In Lab Adrianne Ramon MD CHEMISTRY ORDERA BLEDiogenes [facility] [place] [address] * Lactate Dehydrogenase (03/06/2023 7:45 AM EST) Lactate Dehydrogenase 198 110 - 220 unit/L [facility] Blood 03/06/2023 7:45 AM EST 03/06/2023 8:00 AM EST Narrative Resulting Agency Comment Spec In Lab Adrianne Ramon MD CHEMISTRY ORDERA BLES [facility] [place] [address] * Uric acid (03/06/2023 7:45 AM EST) Uric Acid 5.5 3.5 - 8.5 mg/dL [facility] Blood 03/06/2023 7:45 AM EST 03/06/2023 8:00 AM EST Narrative Resulting Agency Comment Spec In Lab dArianne Ramon MD CHEMISTRY ORDERA BLES Performing Organization Address City/[facility] Co de Phone Number [facility] [place] [address] documented in this encounter Visit Diagnoses Diagnosis [...] PRN, Starting on Sun03/06/23 at 0740, Until Sun03/07/23 at 0433, Dirt Bike Mechanic, Routine Given 03/06/2023 7:50 AM EST 20 mLs documented in this encounter Care Teams Receptionist Telephone Operator Relationship Specialty Start Date End Date Frederick Meade MD [address] [place] [address] PCP - General Family Medicine 11/29/17 documented as of this encounter
--- OUTSIDE RECORDS SUMMARY | 2023-09-26 02:48 | XMS_ITS | Encounter Summary ---
[place] [address] Care Team Providers Care Fixed Interest Dealer Name Role Phone Frederick Meade MD Primary Care Provider [phone] Encounter Details Date Type Department Care Team (Late st Contact Info) Description 03/15/2023 Orders Only Radiology at [facility] [place] [address] Aaron Husain MD [facility] [place] [address] Social History Tobacco Use Types Packs/Day Years [...] IR Mediport Placement 10/17/2022 Gail Jha PA [facility] INTERVENTIONL RAD TONSILLECTOMY 1958 Medications: Current Outpatient [...] Not on file Occupational History 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, 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 Tobacco Use Smoking status: Former Packs/day: [...] AM EDT Infusion Hematology Oncology at [address] [address] 10/03/2023 9:00 AM EDT Office Visit Hematology/Oncology at [address] [address] Adrianne Ramon MD [facility] HEMATOLOGY [place] [address] Yael Merlos APRN [facility] HEMATOLOGY [place] [address] 10/03/2023 9:30 AM EDT Infusion Hematology Oncology at [address] [phone] 10/10/2023 8:30 AM EDT Infusion Hematology Oncology at [address] [phone] 10/10/2023 2:45 PM EDT Appointment XRay at [address] [place] [address] Micha Givens Jr., MD [facility] HEMATOLOGY [place] [address] 10/10/2023 3:00 PM EDT Appointment Non-Invasive [place] [phone] 10/10/2023 3:30 PM EDT Appointment [place] [address] 10/11/2023 8:30 AM EDT Infusion Hematology Oncology at [address] [phone] documented as of this encounter Visit Diagnoses Not on filedocumented in this encounter Care Teams Fixed Interest Dealer Relationship Specialty Start Date End Date Frederick Meade MD [address] [place] [address] [address] PCP - General Family Medicine 11/29/17 documented as of this encounter
--- OUTSIDE RECORDS SUMMARY | 2023-09-26 02:48 | XMS_ITS | Encounter Summary ---
Author Organization [facility] Address [facility] [place] [address] Care Team Providers Care Supervisor Photostat Name Role Phone Frederick Meade MD Primary Care Provider [phone] Encounter Details Date Type Department Care Team (Late st Contact Info) Description 03/14/2023 11:30 AM EST Office Visit Hematology/Oncology at [address] [address] Adrianne Ramon MD [facility] [address] H[place]AT[place]Y [place] [address] Yael Merlos APRN [facility] [address] [place]EM[place] [address] Diffuse large B-cell lymphoma of lymph nodes [...] - 03/14/2023 11:30 AM EST Hematology Clinic [facility] [place] [address] HEMATOLOGY PATIENT EVALUATION PROBLEM LIST: Patient Active [...] ~2 weeks ago saw [facility] and when to [facility]. No beds so sent to [facility] for [address] CAP, MRI,and [...] x7 days with nice response. Pathology from [facility] reports large B-cell lymphoma. Double [...] and needle of cervical LN. FISH from [facility] No MYCrearrangement and no fusion of MYC [...] only 1 biologic. Son Cheo Freire. Enjoys [employer], movies, race car, cards. [employer]. 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 Not a . ETOH: 1-3 beers per week Smoking: Quit 1985. Approximately 67-[id number]-osck history Vaping or electronic cigarettes: denies Chewing [...] is a delightful 72-year old male in [facility]. He is accompanied to the clinic by [...] and BCL-2 protein (Double Expressor.) Flow cytometry ([id number]) supports this interpretation. FISH from [facility] No MYC rearrangement and no fusion of MYC and IGH was observed, CD3 (SP7, [employer]) Background T-cells CD20 (L26, [place]) diffusely positive in Neoplastic B-cells PAX-5 (1EW, [employer]) diffusely positive in Neoplastic B-cells CD10 (SP67, [place]) Negative BCL-6 (G/191E/A8, [place]) Positive MUM-1 (MUM1p, [employer]) Positive Myc (Y69, [employer]) Positive BCL-2 Oncoprotein (124, [place]) Positive Ki67 (MIB-1) (K2, [employer]) Greater than 95% of cells in cycle Cyclin D1(SP4-R, [place]) Negative SAPPHIRE JOSE ([id number], [employer]) Negative. DIAGNOSTICS: 01/25/23 ECHO after C#5 [...] undergo investigation with ultrasound. CT CAP at [facility], report and images have been [...] to Feb 2028. Send PET images to [facility] for future comparison w/ surveillance CT [...] AM EDT Infusion Hematology Oncology at [address] [phone] 10/03/2023 9:00 AM EDT Office Visit Hematology/Oncology at [address] [phone] Adrianne Ramon MD [facility] HEMATOLOGY [place] [address] Yael Merlos, CO FOUNDER AND CHAIRMAN [facility] HEMATOLOGY [place] [address] 10/03/2023 9:30 AM EDT Infusion Hematology Oncology at [address] [phone] 10/10/2023 8:30 AM EDT Infusion Hematology Oncology at [address] [phone] 10/10/2023 2:45 PM EDT Appointment XRay at [address] [place] [address] Micha Givens Jr., MD [facility] HEMATOLOGY [place] [address] 10/10/2023 3:00 PM EDT Appointment Non-[place] [address] 10/10/2023 3:30 PM EDT Appoint[place] [address] 10/11/2023 8:30 AM EDT Infusion Hematology Oncology at [address] [phone] documented as of this encounter Visit Diagnoses Diagnosis Diffuse large B-cell lymphoma of lymph nodes of multiple regions Iron deficiency anemia, unspecified iron deficiency anemia type documented in this encounter Care Teams Supervisor Photostat Relationship Specialty Start Date End Date Frederick Meade MD [address] [place] [address] [address] [place] [address] PCP - General Family Medicine 11/29/17 documented as of this encounter
--- OUTSIDE RECORDS SUMMARY | 2023-09-26 02:48 | XMS_ITS | Encounter Summary ---
[place] [address] Care Team Providers Care Co Founder Name Role Phone Frederick Meade MD Primary Care Provider [phone] [phone] Reason for Referral * Diagnostic Test (Routine) - Closed Specialty Diagnoses / Procedures Referred By Contac t Referred To Contact Radiology Diagnoses Diffuse large B-cell lymphoma of lymph nodes of multiple regions Skin nodule Procedures IR Biopsy Lymph Node (Chest/Abdomen/Pelvis) IR Biopsy Lymph Node (Head/Neck) Adrianne Ramon MD [facility] DR [place] [address] [place] [address] Referral ID Status Reason Start Date Expiration Date V isits Requested Visits Authorized [id number] Closed Specialty Service Requested 08/22/2023 02/21/2025 1 1 * Diagnostic Test (Routine) - Closed Specialty Diagnoses / Procedures Referred By Contac t Referred To Contact Radiology Diagnoses Diffuse large B-cell lymphoma of lymph nodes of multiple regions Skin nodule Procedures NM PET CT Standard Plus Extremities and Head Adrianne Ramon MD [facility] DR [place] [address] [place] [address] Referral ID Status Reason Start Date Expiration Date V isits Requested Visits Authorized [id number] Closed Specialty Service Requested 08/22/2023 02/21/2025 1 1 Encounter Details Date Type Department Care Team (Late st Contact Info) Description 08/22/2023 12:30 PM EDT Office Visit Hematology/Oncology at [address] [address] Adrianne Ramno MD [facility] DR [place] [address] Yael Merlos APRN [facility] [place] [address] Diffuse large B-cell lymphoma of lymph nodes [...] - 08/22/2023 12:30 PM EDT Hematology Clinic [facility] [place] [address] HEMATOLOGY PATIENT EVALUATION PROBLEM LIST: Patient Active [...] to consultation, he saw [facility] in [facility] and when to [facility]. No beds so sent to [facility] for [address] CAP, [...] at [facility] was 01/17/2012. INTERIM HISTORY [...] and needle of cervical LN. FISH from [place] No MYCrearrangement and no fusion of MYC [...] only 1 biologic. Son Cheo Freire. Enjoys [employer], movies, race car, cards. [employer]. 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 Not a . ETOH: 1-3 beers per week Smoking: Quit 1985. Approximately 77-ovwe-pwqp history Vaping or electronic cigarettes: denies Chewing [...] is a delightful 73-year old male in [facility]. He is accompanied to [...] and BCL-2 protein (Double Expressor.) Flow cytometry ([id number]) supports this interpretation. FISH from [place] No MYC rearrangement and no fusion of MYC and IGH was observed, CD3 (SP7, Thermo Scientific) Background T-cells CD20 (L26, [place]) diffusely positive in Neoplastic B-cells PAX-5 (1EW, Leica) diffusely positive in Neoplastic B-cells CD10 (SP67, [place]) Negative BCL-6 (G/191E/A8, [place]) Positive MUM-1 (MUM1p, Dako) Positive Myc (Y69, Abcam) Positive BCL-2 Oncoprotein (124, [place]) Positive Ki67 (MIB-1) (K2, Leica) Greater than 95% of cells in cycle Cyclin D1(SP4-R, [place]) Negative SAPPHIRE JOSE (TNY5173-M, Leica) Negative. DIAGNOSTICS: 01/25/23 ECHO after C#5 [...] 08/22/2023 left upper extremity ultrasound performed at [facility] Notable findings: In the left [...] undergo investigation with ultrasound. CT CAP at [facility], report and images have been requested. ASSESSMENT/PLAN: [...] listed above with ultrasound done today at [facility]. See report in scanned documents. This may represent a recurrence, but it could also be infectious. I spoke to Dr. Bruce Husain at [facility], who recommended large core needle biopsy. [...] keep. We will also do labs at [facility] on day of bio psies. Cardiac -Cheo [...] LVEF at 50-55%. --asymptomatic --repeat echo at [facility] 1 year post completion of [...] - [address] at [facility] Surveillance every 3 mos for first year [...] AM EDT Infusion Hematology Oncology at [address] [address] 10/03/2023 9:00 AM EDT Office Visit Hematology/Oncology at [address] [address] Adrianne Ramon MD [facility] DR [place] [address] Yael Merlos, KARLA [facility] [place] [address] 10/03/2023 9:30 AM EDT Infusion Hematology Oncology at [address] [address] 10/10/2023 8:30 AM EDT Infusion Hematology Oncology at [address] [address] 10/10/2023 2:45 PM EDT Appointment XRay at [address] [place] [address] Micha Givens Jr., MD [facility] HEMATOLOGY [place] [address] 10/10/2023 3:00 PM EDT Appointment Non-Invasive [place] [phone] 10/10/2023 3:30 PM EDT [place] [address] 10/11/2023 8:30 AM EDT Infusion Hematology Oncology at [address] [phone] documented as of this encounter Procedures Procedure Name Priority Date/Time Associated Diagnosis Comments CBC (WITH DIFF) Routine 08/22/2023 COMPREHENSIVE METABOLIC PANEL Routine 08/22/2023 documented in this encounter Results * NM PET CT Standard Plus Extremities and Head (09/06/2023 2:45 PM EDT) WORKSTATION ID [id number] RAD Anatomical Region Laterality Modality Positron Emissio [...] questions please contact the health skin care consultant that requested your imaging first. ? Narrative [...] unspecified. TECHNIQUE: Procedure: Following IV injection of 32-pjyuov-7-deoxyglucose (FDG) a standard uptake of approximately 60 [...] 74, SUV max 27 Procedure Note Rohan Henlye MD - 09/10/2023 EXAMINATION: NM PET CT STANDARD PLUS EXTREMITIES AND HEAD CLINICAL HISTORY: Patient 6 months out from completing treatment fordiffuse large B-cell lymphoma. Now with cutaneous mass on left antecubital andleft axillary adenopathy. Concern for relapse versus infection C83.38, Diffuse large b-cell lymphoma, lymph nodes of multiple sites -R22.9, Localized swelling, mass and lump, unspecified. TECHNIQUE: Procedure: Following IV injection of 87-kwczsh-4-deoxyglucose(FDG) a standard uptake of approximately 60 minutes, [...] have questions please contactthe health skin care consultant that requested your imaging first. Adrianne Ramon [...] B LOOD ORDERABLES [facility] [place] [address] * (ABNORMAL) Lactate Dehydrogenase (09/06/2023 10:12 AM EDT) Lactate Dehydrogenase 251(H) 110 - 220 unit/L [facility] Blood 09/06/2023 10:1 2 AM EDT 09/06/2023 10:16 AM EDT Narrative Resulting Agency Comment Spec In Lab Adrianne Ramon MD CHEMISTRY ORDERA BLES Performing Organization Address City/[facility]/ZIP Co de Phone Number [facility] [place] [address] * (ABNORMAL) Comprehensive metabolic panel (non-fasting) (09/06/2023 10:12 AM EDT) Glucose 170 65 - 199 mg/dL [facility] Comment:Diabetes: >=200 mg/d L plus symptoms Blood Urea Nitrogen 15 10 - 20 mg/dL [facility] [...] - 107 mmol/L [facility] Carbon Dioxide 25 22 - 31 mmol/L [facility] Anion Gap 11 5 - 15 mmol/L [facility] Calcium 9.2 8.5 - 10.5 mg/dL [facility] Protein, Total 6.1 6.1 - 8.0 g/dL [facility] Albumin 3.7 3.2 - 5.2 g/dL [facility] Aspartate Aminotransferase 37 0 - 39 unit/L [facility] Alanine Aminotransferase 61(H) 0 - 55 unit/L [facility] Alkaline Phosphatase 151(H) 40 - 130 unit/L [facility] Bilirubin, Total 0.3 0.2 - 1.3 mg/dL [facility] Est Glomerular Filtration Rate 72 >=60 mL/min/1. 73 m?? [facility] [...] CHEMISTRY ORDERA BLES [facility] [place] [address] * Comprehensive metabolic panel (non-fasting) (08/22/2023) Creatinine 1.3 Potassium 3.5 Bilirubin, Total 0.4 Alkaline Phosphatase 122 Aspartate Aminotransferase 23 Alanine Aminotransferase 27 Blood 08/22/2023 Historical Provider CHEMISTRY ORDERAB LES * CBC (with Diff) (08/22/2023) White Blood [...] lump documented in this encounter Care Teams Co Founder Relationship Specialty Start Date End Date Frederick Meade MD [address] [place] [address] PCP - General Family Medicine 11/29/17 documented as of this encounter
--- OUTSIDE RECORDS SUMMARY | 2023-09-26 02:48 | XMS_ITS | Encounter Summary ---
[place] [address] Care Team Providers Care Regional Engagement Consultant Name Role Phone Frederick Meade MD Primary Care Provider [phone] [phone] Reason for Referral * Diagnostic Test (Routine) - Closed Specialty Diagnoses / Procedures Referred By Contac t Referred To Contact Radiology Diagnoses Diffuse large B-cell lymphoma of lymph nodes of multiple regions Procedures NM PET CT Skull Base to Mid-thigh Yael Merlos APRN [facility] HEMATOLOGY [place] [address] [place] [address] Referral ID Status Reason Start Date Expiration Date V isits Requested Visits Authorized [id number] Closed Specialty Service Requested 01/15/2023 07/15/2024 1 1 Encounter Details Date Type Department Care Team (Late st Contact Info) Description 01/15/2023 Orders Only [place]ematology [place] [address] Yael Merlos APRN [facility] HEMATOLOGY AND ONCOLOGY [place], [place] [...] AM EDT Infusion Hematology Oncology at [address] [phone] 10/03/2023 9:00 AM EDT Office Visit Hematology/Oncology at [address] [address] Adrianne Ramon MD [facility] HEMATOLOGY AND [place] [address] Yael Merlos APRN [facility] HEMATOLOGY AND [place] [address] 10/03/2023 9:30 AM EDT Infusion Hematology Oncology at [address] [phone] 10/10/2023 8:30 AM EDT Infusion Hematology Oncology at [address] [phone] 10/10/2023 2:45 PM EDT Appointment XRay at [address] [place] [address] Micha Givens Jr., MD [facility] HEMATOLOGY AND [place] [address] 10/10/2023 3:00 PM EDT Appointment Non-[place] [address] 10/10/2023 3:30 PM EDT Appointment [place] [address] 10/11/2023 8:30 AM EDT Infusion Hematology Oncology at [address] [phone] documented as of this encounter Results * [...] questions please contact the health health care technician that requested your imaging first. ? Narrative 03/08/2023 11:33 AM EST EXAMINATION: NM PET CT STANDARD SKULL BASE TO MID-THIGH CLINICAL HISTORY: Hematologic malignancy, assess treatment response History of diffuse large B-cell lymphoma, status post 6 cycles of RCHOP. TECHNIQUE: Following IV injection of 71-jiubuy-4-deoxyglucose (FDG) a standard uptake of approximately 60 [...] of RCHOP. TECHNIQUE: Following IV injection of 64-wmkkct-9-deoxyglucose (FDG) astandard uptake of approximately 60 minutes, [...] have questions please contactthe health health care technician that requested your imaging first. 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
--- OUTSIDE RECORDS SUMMARY | 2023-09-26 02:48 | XMS_ITS | Encounter Summary ---
Author Organization [facility] Address [place] [address] Care Team Providers Care Manufacturers Representative Name Role Phone Frederick Meade MD Primary Care Provider [phone] Encounter Details Date Type Department Care Team (Late st Contact Info) Description 01/31/2023 Notes Only Hematology/Oncology at [address] [address] Shelley Cason, [facility] OFFICE OF CARE MANAGEMENT Social History Tobacco [...] 01/31/2023 9:42 AM EST Follow up with Ceho and his during his infusion visit. They [...] did not identify any new needs today. [employer] will continue as a resource for them. Brief assessment Supportive Counseling documented in this encounter Plan of Treatment Upcoming Encounters Date Type Department Care Team (Late st Contact Info) Description 09/26/2023 8:30 AM EDT Infusion Hematology Oncology at [address] [phone] 10/03/2023 9:00 AM EDT Office Visit Hematology/Oncology at [address] [address] Adrianne Ramon MD [facility] HEMATOLOGY [place] [address] Yael Merlos APRN [facility] DR HEMATOLOGY [place] [address] 10/03/2023 9:30 AM EDT Infusion Hematology Oncology at [address] [phone] 10/10/2023 8:30 AM EDT Infusion Hematology Oncology at [address] [phone] 10/10/2023 2:45 PM EDT Appointment XRay at [address] [place] [address] Micha Givens Jr., MD [facility] DR HEMATOLOGY [place] [address] 10/10/2023 3:00 PM EDT Appointment [place] [address] 10/10/2023 3:30 PM EDT Appointment [place] [address] 10/11/2023 8:30 AM EDT Infusion Hematology Oncology at [address] [phone] documented as of this encounter Visit Diagnoses Not on filedocumented in this encounter Care Teams Manufacturers Representative Relationship Specialty Start Date End Date Frederick Meade MD [address] [place] [address] [address] PCP - General Family Medicine 11/29/17 documented as of this encounter
--- OUTSIDE RECORDS SUMMARY | 2023-09-26 02:48 | XMS_ITS | Encounter Summary ---
[place] [address] Care Team Providers Care Lubricating Specialist Name Role Phone Frederick Meade MD Primary Care Provider [phone] [phone] Reason for Referral * Diagnostic Test (Routine) - Closed Specialty Diagnoses / Procedures Referred By Contac t Referred To Contact Radiology Diagnoses Diffuse large B-cell lymphoma of lymph nodes of multiple regions Procedures IR Mediport Removal Yael Melros ORTHOPEDIC PHYSICAL THERAPIST [facility] DR HEMATOLOGY [place] [address] [facility] [place] [address] Referral ID Status Reason Start Date Expiration Date V isits Requested Visits Authorized [id number] Closed Specialty Service Requested 03/15/2023 09/12/2024 1 1 Reason for Visit * Diagnostic Test (Routine) - Closed Specialty Diagnoses / Procedures Referred By Contac t Referred To Contact Radiology Diagnoses Diffuse large B-cell lymphoma of lymph nodes of multiple regions Procedures IR Mediport Removal Yael Merlos ORTHOPEDIC PHYSICAL THERAPIST [facility] HEMATOLOGY [place] [address] [facility] [place] [address] Referral ID Status Reason Start Date Expiration Date V isits Requested Visits Authorized [id number] Closed Specialty Service Requested 03/15/2023 09/12/2024 1 1 Encounter Details Date Type Department Care Team (Latest Contact Info) Description 03/29/2023 12:51 PM EST - 03/29/2023 11:59 PM EST Hospital Encounter Radiology at [facility] [place] [address] Yael Merlos APRN [facility] DR HEMATOLOGY [place] [address] Diffuse large B-cell lymphoma of lymph nodes [...] Zacarias RN - 03/29/2023 2:08 PM EST [facility] Vascular and Interventional Radiology Discharge Instructions for [...] not peel them off. There may be Salvo-mcqueen (skin glue) also, allow this to flake [...] is during regular office hours, please call [phone]. If it is after regular office hours, or on weekends or holidays, please call [phone] and ask to speak to the Assembler Fitter operator control room for Interventional Radiology. You have received medication [...] of : 1950 AGE: 72 y.o. Address: [address] [place] [address] Phone: [phone] (home) Mobile: Telephone Information: Referring Provider: Yael Merlos REASON FOR VISIT: Order Questions Answers Where will study be performed? [facility] Radiology [120] Reason for exam and [...] AM EDT Infusion Hematology Oncology at [address] [address] 10/03/2023 9:00 AM EDT Office Visit Hematology/Oncology at [address] [address] Adrianne Ramon MD [facility] DR HEMATOLOGY [place] [address] Yael Merlos, ORTHOPEDIC PHYSICAL THERAPIST [facility] HEMATOLOGY [place] [address] 10/03/2023 9:30 AM EDT Infusion Hematology Oncology at [address] [address] 10/10/2023 8:30 AM EDT Infusion Hematology Oncology at [address] [address] 10/10/2023 2:45 PM EDT Appointment XRay at [address] [place] [address] Micha Givens Jr., MD [facility] DR HEMATOLOGY [place] [address] 10/10/2023 3:00 PM EDT Appointment Non-[place] [address] 10/10/2023 3:30 PM EDT [place]oint[place] [address] 10/11/2023 8:30 AM EDT Infusion Hematology Oncology at [address] [phone] documented as of this encounter [...] port explant Indication: Lymphoma, therapy complete, discontinue detention central venous access for chemotherapy Pre-procedure: Informed [...] venous port with all components accounted for. mirror finishing machine operator: ??Chalo Crews PA-C Attending of record: Ole Arvizu MD 03/29/2023 Yael Merlos ORTHOPEDIC PHYSICAL THERAPIST IMG IR ORDERABLES documented in this encounter [...] section) documented in this encounter Care Teams Lubricating Specialist Relationship Specialty Start Date End Date Frederick Meade MD [facility] [address] [facility] 1 [place] [address] PCP - General Family Medicine 11/29/17 documented as of this encounter
--- OUTSIDE RECORDS SUMMARY | 2023-09-26 02:48 | XMS_ITS | Encounter Summary ---
[place] [address] Care Team Providers Care Candy Cutter Hand Name Role Phone Frederick Meade MD Primary Care Provider [phone] Reason for Visit * Diagnostic Test (Routine) - Closed Specialty Diagnoses / Procedures Referred By Contac t Referred To Contact Radiology Diagnoses Diffuse large B-cell lymphoma of lymph nodes of multiple regions Procedures NM PET CT Skull Base to Mid-thigh Yael Merlos SECURITY PROGRAM MANAGER [facility] [place] [address] [place] [address] Referral ID Status Reason Start Date Expiration Date V isits Requested Visits Authorized [id number] Closed Specialty Service Requested 01/15/2023 07/15/2024 1 1 Encounter Details Date Type Department Care Team (Latest Contact Info) Description 03/06/2023 7:52 AM EST - 03/06/2023 11:59 PM [facility] [[email or web address] Hospital En[place] [address] Yael Merlos [facility] [place] [address] Discharge Disposition: Home Social History [...] AM EDT Infusion Hematology Oncology at [address] [address] 10/03/2023 9:00 AM EDT Office Visit Hematology/Oncology at [address] [address] Adrianne Ramon MD [facility] [address] [place] [address] Yael Merlos APRN [facility] [place] [address] 10/03/2023 9:30 AM EDT Infusion Hematology Oncology at [address] [address] 10/10/2023 8:30 AM EDT Infusion Hematology Oncology at [address] [address] 10/10/2023 2:45 PM EDT Appointment XRay at [address] [place] [address] Micha Givens Jr., MD [facility] DR HEMATOLOGY [place] [address] 10/10/2023 3:00 PM EDT Appointment Non-[place]vasive [place] [address] 10/10/2023 3:30 PM EDT Appointment [place] [address] 10/11/2023 8:30 AM EDT Infusion Hematology Oncology at [address] [phone] documented as of this encounter Procedures Procedure Name Priority Date/Time Associated Diagnosis Comments NM PET CT SKULL BASE TO MID-THIGH ([facility]) Routine 03/06/2023 9:17 AM EST Diffuse large B-cell lymphoma of lymph nodes of multiple regions POCT GLUCOSE Routine 03/06/2023 8:05 AM EST documented in this encounter Results * POCT Glucose (03/06/2023 8:05 AM EST) Glucose, POC 126 65 - 199 mg/dL [facility] Comment: Supplemental ranges: <140 mg/dL before meals <180 mg/dL all other times of the day Blood 03/06/2023 8:05 AM EST 03/06/2023 8:05 AM EST Yael Merlos SECURITY PROGRAM MANAGER POINT OF CARE TEST ORDERABLES [facility] [place] [address] documented in this encounter Visit Diagnoses Not on filedocumented in this encounter Care Teams Candy Cutter Hand Relationship Specialty Start Date End Date Frederick Meade MD [address] [place] [address] [address] [place] [address] PCP - General Family Medicine 11/29/17 documented as of this encounter
--- OUTSIDE RECORDS SUMMARY | 2023-09-26 02:48 | XMS_ITS | Encounter Summary ---
[place] [address] Care Team Providers Care Church Administrator Name Role Phone Frederick Meade MD Primary Care Provider [phone] Encounter Details Date Type Department Care Team (Late st Contact Info) Description 06/22/2023 Orders Only Hematology [place] [address] Deidre Silverio Social History Tobacco Use Types [...] AM EDT Infusion Hematology Oncology at [address] [address] 10/03/2023 9:00 AM EDT Office Visit Hematology/Oncology at [address] [address] Adrianne Ramon MD [facility] HEMATOLOGY [place] [address] Yael Merlos, KARLA [facility] HEMATOLOGY [place] [address] 10/03/2023 9:30 AM EDT Infusion Hematology Oncology at [address] [address] 10/10/2023 8:30 AM EDT Infusion Hematology Oncology at [address] [address] 10/10/2023 2:45 PM EDT Appointment XRay at [address] [place] [address] Micha Givens Jr., MD [facility] HEMATOLOGY [place] [address] 10/10/2023 3:00 PM EDT Appointment Non-[place] [address] 10/10/2023 3:30 PM EDT Appointment [place] [address] 10/11/2023 8:30 AM EDT Infusion Hematology Oncology at [address] [address] documented as of this encounter Visit Diagnoses Not on filedocumented in this encounter Care Teams Church Administrator Relationship Specialty Start Date End Date Frederick Meade MD [address] [place] [address] PCP - General Family Medicine 11/29/17 documented as of this encounter
--- OUTSIDE RECORDS SUMMARY | 2023-09-26 02:48 | XMS_ITS | Encounter Summary ---
Author Organization [facility] Address [facility] [place] [address] Care Team Providers Care Licensed Dispensing Optician Name Role Phone Frederick Meade MD Primary Care Provider [phone] [phone] Encounter Details Date Type Department Care Team (Late st Contact Info) Description 12/20/2022 Notes Only Hematology/Oncology at [address] [address] Shelley Cason, [facility]NAG[facility] Social History Tobacco [...] [facility] They are appreciative of this financial assistance. Cheo indicated he tolerated his last treatment much better than the first 2 so he hope his one will go well. Oferred them support as Mrs. Freire shared how challenging this is for them. Reminded them of HEDIS REGISTERED NURSE RN availability and will continue to follow for support and resources. Brief assessment Supportive Counseling Financial resources Community Resource documented in this encounter Plan of Treatment Upcoming Encounters Date Type Department Care Team (Late st Contact Info) Description 09/26/2023 8:30 AM EDT Infusion Hematology Oncology at [address] [address] 10/03/2023 9:00 AM EDT Office Visit Hematology/Oncology at [address] [address] Adrianne Ramon MD [facility] DR HEMATOLOGY [place] [address] Yael Merlos APRN [facility] DR HEMATOLOGY [place] [address] 10/03/2023 9:30 AM EDT Infusion Hematology Oncology at [address] [phone] 10/10/2023 8:30 AM EDT Infusion Hematology Oncology at [address] [address] 10/10/2023 2:45 PM EDT Appointment XRay at [address] [place] [address] Micha Givens Jr., MD [facility] DR HEMATOLOGY [place] [address] 10/10/2023 3:00 PM EDT Appointment Non-[place]vasive [place] [address] 10/10/2023 3:30 PM EDT Appointment [place] [address] 10/11/2023 8:30 AM EDT Infusion Hematology Oncology at [address] [phone] documented as of this encounter Visit Diagnoses Not on filedocumented in this encounter Care Teams Licensed Dispensing Optician Relationship Specialty Start Date End Date Frederick Meade MD [address] [place] [address] [address] PCP - General Family Medicine 11/29/17 documented as of this encounter
--- OUTSIDE RECORDS SUMMARY | 2023-09-26 02:48 | XMS_ITS | Encounter Summary ---
Author Organization [facility] [place] [address] Care Team Providers Care Project Superintendent Name Role Phone Frederick Meade MD Primary Care Provider [phone] [phone] Encounter Details Date Type Department Care Team [...] AM EDT Infusion Hematology Oncology at [address] [address] 10/03/2023 9:00 AM EDT Office Visit Hematology/Oncology at [address] [address] Adrianne Ramon MD [facility] HEMATOLOGY [place] [address] Yael Merlos APRN [facility] [place] [address] 10/03/2023 9:30 AM EDT Infusion Hematology Oncology at [address] [address] 10/10/2023 8:30 AM EDT Infusion Hematology Oncology at [address] [address] 10/10/2023 2:45 PM EDT Appointment XRay at [address] [place] [phone] Micha Givens Jr., MD [facility] HEMATOLOGY [place] [address] 10/10/2023 3:00 PM EDT Appointment Non-[place]vasive [place] [phone] 10/10/2023 3:30 PM EDT Appointment [place] [address] 10/11/2023 8:30 AM EDT Infusion Hematology Oncology at [address] [address] documented as of this encounter Visit Diagnoses Not on filedocumented in this encounter Care Teams Project Superintendent Relationship Specialty Start Date End Date Frederick Meade MD [address] [place] [address] PCP - General Family Medicine 11/29/17 documented as of this encounter
--- OUTSIDE RECORDS SUMMARY | 2023-09-26 02:48 | XMS_ITS | Encounter Summary ---
[place] [address] Care Team Providers Care Early Childhood Education Specialist Name Role Phone Frederick Meade MD Primary Care Provider [phone] [phone] Reason for Referral * Diagnostic Test (Routine) - Authorized Specialty Diagnoses / Procedures Referred By Contac t Referred To Contact Radiology Diagnoses Diffuse large B-cell lymphoma of lymph nodes of multiple regions Procedures CT Neck Soft Tissue w Contrast (Generic) Yael Merlos APRN [facility] [address] [place] [address] Referral ID Status Reason Start Date Expiration Date Visits Requested Visits Authorized [id number] Authorized Specialty Service Requested 06/13/2023 12/12/2024 1 1 * Diagnostic Test (Routine) - Authorized Specialty Diagnoses / Procedures Referred By Contac t Referred To Contact Radiology Diagnoses Diffuse large B-cell lymphoma of lymph nodes of multiple regions Procedures CT Chest Abdomen Pelvis w Contrast (Generic) Yael Merlos APRN [facility] [address] [place] [address] Referral ID Status Reason Start Date Expiration Date Visits Requested Visits Authorized [id number] Authorized Specialty Service Requested 06/13/2023 12/12/2024 1 1 Reason for Visit * Reason Comments Follow-up Encounter Details Date Type Department Care Team (Late st Contact Info) Description 06/13/2023 11:00 AM EDT Office Visit Hematology/Oncology at [address] [phone] Adrianne Ramon MD [facility] DR [place] [address] Yael Merlos APRN [facility] [place] [address] Diffuse large B-cell lymphoma of lymph nodes [...] this encounter Progress Notes * Yael Merlos, CELLOPHANE PRESS OPERATOR - 06/13/2023 11:00 AM EDT Hematology Clinic [facility] [place] [address] HEMATOLOGY PATIENT EVALUATION PROBLEM LIST: Patient Active [...] to consultation, he saw [facility] and when to [facility]. No beds so sent to [facility] for [address] CAP, [...] - unclear cause. - last COLO at [facility] was 01/17/2012. INTERIM HISTORY [...] using his bike. They are opening their pala again inviting in close friends and family and beginning to extends back out in their social pala which is quite reasonable at this point. No new health-related concerns. 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 6 mos of adjuvant Lupron. Total dose 79.2 Gy completed 01/26/15 09/29/22 Large B Cell lymphoma - biopsy of tongue and needle of cervical LN. FISH from [place] No MYCrearrangement and no fusion of MYC [...] only 1 biologic. Son Cheo Freire. Enjoys [employer], movies, race car, [employer]. [employer]. 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 Not a . ETOH: 1-3 beers per week Smoking: Quit 1985. Approximately 32-stcn-jasg history Vaping or electronic cigarettes: denies Chewing [...] and BCL-2 protein (Double Expressor.) Flow cytometry ([id number]) supports this interpretation. FISH from [place] No MYC rearrangement and no fusion of MYC and IGH was observed, CD3 (SP7, Thermo Scientific) Background T-cells CD20 (L26, [place]) diffusely positive in Neoplastic B-cells PAX-5 (1EW, Leica) diffusely positive in Neoplastic B-cells CD10 (SP67, [place]) Negative BCL-6 (G/191E/A8, [place]) Positive MUM-1 (MUM1p, Dako) Positive Myc (Y69, Abcam) Positive BCL-2 Oncoprotein (124, [place]) Positive Ki67 (MIB-1) (K2, Leica) Greater than 95% of cells in cycle Cyclin D1(SP4-R, [place]) Negative SAPPHIRE JOSE ([id number], Leica) Negative. DIAGNOSTICS: 01/25/23 ECHO after C#5 [...] undergo investigation with ultrasound. CT CAP at [facility], report and images have been requested. [...] LVEF at 50-55%. --asymptomatic --repeat echo at [facility] 1 year post completion [...] and counseling as appropriate. Yael Merlos, MSN, CELLOPHANE PRESS OPERATOR Nurse Practitioner Section of Hematology Copy Frederick Meade MD documented in this encounter Plan of Treatment Upcoming Encounters Date Type Department Care Team (Late st Contact Info) Description 09/26/2023 8:30 AM EDT Infusion Hematology Oncology at [address] [address] 10/03/2023 9:00 AM EDT Office Visit Hematology/Oncology at [address] [phone] Adrianne Ramon MD [facility] HEMATOLOGY [place] [address] Yael Merlos APRN [facility] HEMATOLOGY [place] [address] 10/03/2023 9:30 AM EDT Infusion Hematology Oncology at [address] [address] 10/10/2023 8:30 AM EDT Infusion Hematology Oncology at [address] [address] 10/10/2023 2:45 PM EDT Appointment XRay at [address] [place] [address] Micha Givens Jr., MD [facility] HEMATOLOGY [place] [address] 10/10/2023 3:00 PM EDT Appointment Non-[place] [address] 10/10/2023 3:30 PM EDT Appointment [place] [address] 10/11/2023 8:30 AM EDT Infusion Hematology Oncology at [address] [phone] Scheduled Orders Name Type Priority [...] (WITH DIFF) Routine 06/13/2023 COMPREHENSIVE METABOLIC PANEL Routine 06/13/2023 documented in this encounter Results * (ABNORMAL) CBC (with Diff) (06/13/2023) White Blood Cell 6.67 Red Blood Cell 4.20(L) Hemoglobin 12.6(L) Hematocrit 38.1(L) Platelet 221 ANC 4.45 Blood 06/13/2023 Historical Provider HEMATOLOGY ORDERA BLES * (ABNORMAL) Comprehensive metabolic panel (non-fasting) (06/13/2023) Glucose 136(H) Blood Urea Nitrogen 14 Creatinine 1.1 Sodium 144 Potassium 3.6 Calcium 8.8 Protein, Total 6.6 Albumin 3.5 Bilirubin, Total 0.3 Alkaline Phosphatase 110 Aspartate Aminotransferase 19 Alanine Aminotransferase 31 Lactate Dehydrogenase 170 Blood 06/13/2023 Historical Provider CHEMISTRY ORDERAB LES documented in this encounter Visit Diagnoses Diagnosis Diffuse large B-cell lymphoma of lymph nodes of multiple regions Iron deficiency anemia, unspecified iron deficiency anemia type Non-Hodgkin lymphoma of lymph nodes of multiple regions, unspecified non-Hodgkin lymphoma type documented in this encounter Care Teams Early Childhood Education Specialist Relationship Specialty Start Date End Date Frederick Meade MD [address] [place] [address] PCP - General Family Medicine 11/29/17 documented as of this encounter
--- OUTSIDE RECORDS SUMMARY | 2023-09-26 02:48 | XMS_ITS | Encounter Summary ---
Author Organization [facility] [place] [address] Care Team Providers Care Remote Encoding Operations Supervisor Name Role Phone Frederick Meade MD Primary Care Provider [phone] [phone] Encounter Details Date Type Department Care Team [...] AM EDT Infusion Hematology Oncology at [address] [address] 10/03/2023 9:00 AM EDT Office Visit Hematology/Oncology at [address] [address] Adrianne Ramon MD [facility] HEMATOLOGY [place] [address] Yael Merlos APRN [facility] HEMATOLOGY [place] [address] 10/03/2023 9:30 AM EDT Infusion Hematology Oncology at [address] [address] 10/10/2023 8:30 AM EDT Infusion Hematology Oncology at [address] [address] 10/10/2023 2:45 PM EDT Appointment XRay at [address] [place] [address] Micha Givens Jr., MD [facility] HEMATOLOGY [place] [address] 10/10/2023 3:00 PM EDT Appointment Non[place] [address] 10/10/2023 3:30 PM EDT [place]oint[place] [address] 10/11/2023 8:30 AM EDT Infusion Hematology Oncology at [address] [address] documented as of this encounter Visit Diagnoses Not on filedocumented in this encounter Care Teams Remote Encoding Operations Supervisor Relationship Specialty Start Date End Date Frederick Meade MD [address] [place] [address] PCP - General Family Medicine 11/29/17 documented as of this encounter
--- OUTSIDE RECORDS SUMMARY | 2023-09-26 02:48 | XMS_ITS | Encounter Summary ---
Author Organization [facility] Address [facility] [place] [address] Care Team Providers Care Applications Project Manager Name Role Phone Frederick Meade MD Primary Care Provider [phone] [phone] Encounter Details Date Type Department Care Team (Late st Contact Info) Description 01/10/2023 8:30 AM EST Office Visit Hematology/Oncology at [address] [address] Adrianne Ramon MD [facility] DR [place] [address] Diffuse large B-cell lymphoma of lymph nodes [...] - 01/10/2023 8:30 AM EST Hematology Clinic [facility] [place] [facility] [place] [address] HEMATOLOGY PATIENT EVALUATION Patient Active Problem [...] ~2 weeks ago saw [facility] in [facility] and when to [facility]. No beds so sent to [facility] for [address] CAP, MRI,and [...] x7 days with nice response. Pathology from [facility] reports large B-cell lymphoma. Double expresser. FISH for translocations are pending. Tongue swelling. No wt loss. Eating and drinking OK. No fevers, infections, No NS. Pain in neck.Prednisone 60mg daily X 7 days. I feel great on prednisone last day of prednisone is today Took iron supplements per PCP - unclear cause. - last COLO at [facility] was 01/17/2012. INTERIM HISTORY OF [...] and needle of cervical LN. FISH from [place] No MYCrearrangement and no fusion of MYC [...] only 1 biologic. Son Cheo Freire. Enjoys [employer], [employer], [employer], [employer]. [employer]. 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 Not a . ETOH: 1-3 beers per week Smoking: Quit 1985. Approximately 24-eair-qreh history Vaping or electronic cigarettes: denies Chewing [...] delightful 72-year old male in [facility]. He is accompanied to the clinic by [...] and BCL-2 protein (Double Expressor.) Flow cytometry ([id number]) supports this interpretation. FISH from [place] No MYC rearrangement and no fusion of MYC and IGH was observed, CD3 (SP7, Thermo Scientific) Background T-cells CD20 (L26, [place]) diffusely positive in Neoplastic B-cells PAX-5 (1EW, Leica) diffusely positive in Neoplastic B-cells CD10 (SP67, [place]) Negative BCL-6 (G/191E/A8, [place]) Positive MUM-1 (MUM1p, Dako) Positive Myc (Y69, Abcam) Positive BCL-2 Oncoprotein (124, [place]) Positive Ki67 (MIB-1) (K2, Leica) Greater than 95% of cells in cycle Cyclin D1(SP4-R, [place]) Negative SAPPHIRE JOSE ([id number], Leica) Negative. DIAGNOSTICS: 11/28/22 ECHO after C#2 [...] undergo investigation with ultrasound. CT CAP at [facility], report and images have been requested. ASSESSMENT/PLAN: [...] 2023 - booked for 01/25/23 at [facility] Recommend COVID vaccine though he is aware that he may not have a robust response due to ongoing chemotherapy with B-cell depletion. He has already received influenza vaccine. Final PET week of Mar 05 at [facility] with appt 03/14/22 I discussed all of the above with the patient and all of his questions were answered. Support and counseling as appropriate. Copy Frederick Meade MD documented in this encounter Plan of Treatment Upcoming Encounters Date Type Department Care Team (Late st Contact Info) Description 09/26/2023 8:30 AM EDT Infusion Hematology Oncology at [address] [address] 10/03/2023 9:00 AM EDT Office Visit Hematology/Oncology at [address] [address] Adrianne Ramon MD [facility] HEMATOLOGY [place] [address] Yael Merlos, COMMERCIAL FRONT LOAD OPERATOR [facility] HEMATOLOGY [place] [address] 10/03/2023 9:30 AM EDT Infusion Hematology Oncology at [address] [address] 10/10/2023 8:30 AM EDT Infusion Hematology Oncology at [address] [address] 10/10/2023 2:45 PM EDT Appointment XRay at [address] [place] [address] Micha Givens Jr., MD [facility] HEMATOLOGY [place] [address] 10/10/2023 3:00 PM EDT Appointment Non-Invasive [place] [address] 10/10/2023 3:30 PM EDT [place] [address] 10/11/2023 8:30 AM EDT Infusion Hematology Oncology at [address] [address] documented as of this encounter Procedures Procedure Name Priority Date/Time Associated Diagnosis Comments CBC (WITH DIFF) Routine 01/10/2023 COMPREHENSIVE METABOLIC PANEL Routine 01/10/2023 documented in this encounter Results * (ABNORMAL) Comprehensive metabolic panel (non-fasting) (01/10/2023) Glucose 235(H) Blood Urea Nitrogen 11 Creatinine 1.1 Sodium 141 Potassium 3.5 Calcium 9.3 Protein, Total 6.5 Albumin 2.8(L) Bilirubin, Total 0.2 Alkaline Phosphatase 102 Aspartate Aminotransferase 14(L) Alanine Aminotransferase 18 Lactate Dehydrogenase 207 Blood 01/10/2023 Historical Provider CHEMISTRY ORDERAB LES * (ABNORMAL) CBC (with Diff) (01/10/2023) White Blood Cell 8.17 Red Blood Cell 3.30(L) Hemoglobin 9.9(L) Hematocrit 31.2(L) Platelet 369 ANC 5.91 Blood 01/10/2023 Historical Provider HEMATOLOGY ORDERA BLES documented in this encounter Visit Diagnoses Diagnosis Diffuse large B-cell lymphoma of lymph nodes of multiple regions documented in this encounter Care Teams Applications Project Manager Relationship Specialty Start Date End Date Frederick Meade MD [address] [place] [address] PCP - General Family Medicine 11/29/17 documented as of this encounter
--- OUTSIDE RECORDS SUMMARY | 2023-09-26 02:48 | XMS_ITS | Encounter Summary ---
Author Organization [facility] [place] [address] Care Team Providers Care Engineering Officer Name Role Phone Frederick Meade MD Primary Care Provider [phone] Encounter Details Date Type Department Care Team [...] AM EDT Infusion Hematology Oncology at [address] [address] 10/03/2023 9:00 AM EDT Office Visit Hematology/Oncology at [address] [address] Adrianne Ramon MD [facility] HEMATOLOGY [place] [address] Yael Merlos APRN [facility] HEMATOLOGY [place] [address] 10/03/2023 9:30 AM EDT Infusion Hematology Oncology at [address] [address] 10/10/2023 8:30 AM EDT Infusion Hematology Oncology at [address] [address] 10/10/2023 2:45 PM EDT Appointment XRay at [address] [place] [address] Micha Givens Jr., MD [facility] HEMATOLOGY [place] [address] 10/10/2023 3:00 PM EDT Appointment Non[place] [address] 10/10/2023 3:30 PM EDT Appointment [place] [address] 10/11/2023 8:30 AM EDT Infusion Hematology Oncology at [address] [address] documented as of this encounter Visit Diagnoses Not on filedocumented in this encounter Care Teams Engineering Officer Relationship Specialty Start Date End Date Frederick Meade MD [address] [place] [address] PCP - General Family Medicine 11/29/17 documented as of this encounter
--- OUTSIDE RECORDS SUMMARY | 2023-09-26 02:48 | XMS_ITS | Encounter Summary ---
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 No beds so sent to [facility] for [address] CAP, [...] x7 days with nice response. Pathology from [facility] reports large B-cell lymphoma. Double expresser. FISH for translocations are pending. Tongue swelling. No wt loss. Eating and drinking OK. No fevers, infections, No NS. Pain in neck.Prednisone 60mg daily X 7 days. I feel great on prednisone last day of prednisone is today Took iron supplements per PCP - unclear cause. - last COLO at [facility] was 01/17/2012. INTERIM HISTORY OF PRESENT [...] and needle of cervical LN. FISH from [place] No MYCrearrangement and no fusion of MYC [...] Freire. Enjoys reads, movies, race car, cards. [employer]. 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 Not a . ETOH: 1-3 beers per week Smoking: Quit 1985. Approximately 90-ghul-fhlw history Vaping or electronic cigarettes: denies Chewing [...] delightful 72-year old male in [facility]. He is accompanied to the clinic by [...] and BCL-2 protein (Double Expressor.) Flow cytometry ([id number]) supports this interpretation. FISH from [place] No MYC rearrangement and no fusion of MYC and IGH was observed, CD3 (SP7, Thermo Scientific) Background T-cells CD20 (L26, [place]) diffusely positive in Neoplastic B-cells PAX-5 (1EW, Leica) diffusely positive in Neoplastic B-cells CD10 (SP67, [place]) Negative BCL-6 (G/191E/A8, [place]) Positive MUM-1 (MUM1p, [place]) Positive Myc (Y69, Abcam) Positive BCL-2 Oncoprotein (124, [place]) Positive Ki67 (MIB-1) (K2, Leica) Greater than 95% of cells in cycle Cyclin D1(SP4-R, [place]) Negative SAPPHIRE JOSE ([id number], Leica) Negative. DIAGNOSTICS: 01/25/23 ECHO after C#5 [...] undergo investigation with ultrasound. CT CAP at [facility], report and images have been [...] LVEF at 50-55%. --asymptomatic --repeat echo at [facility] 1 year post completion of therapy [...] and counseling as appropriate. Yael Merlos, MSN, ELECTRIC METER SETTER Nurse Practitioner Section of Hematology Copy Frederick Meade MD documented in this encounter Plan of Treatment Upcoming Encounters Date Type Department Care Team (Late st Contact Info) Description 09/26/2023 8:30 AM EDT Infusion Hematology Oncology at [address] [address] 10/03/2023 9:00 AM EDT Office Visit Hematology/Oncology at [address] [address] Adrianne Ramon MD [facility] [place] [address] Yael Merlos APRN [facility] [place] [address] 10/03/2023 9:30 AM EDT Infusion Hematology Oncology at [address] [address] 10/10/2023 8:30 AM EDT Infusion Hematology Oncology at [address] [phone] 10/10/2023 2:45 PM EDT Appointment XRay at [address] [place] [address] Micha Givens Jr., MD [facility] [place] [address] 10/10/2023 3:00 PM EDT Appointment Non-Invasive Cardiology Lab [facility] [place] [address] 10/10/2023 3:30 PM EDT Appointment Pulmonology at [facility] [address] 10/11/2023 8:30 AM EDT Infusion Hematology Oncology at [address] [phone] documented as of this encounter Procedures Procedure Name Priority Date/Time Associated Diagnosis Comments CBC (WITH DIFF) Routine 01/31/2023 COMPREHENSIVE METABOLIC PANEL Routine 01/31/2023 documented in this encounter Results * (ABNORMAL) Comprehensive metabolic panel (non-fasting) (01/31/2023) Glucose 238(H) Blood Urea Nitrogen 13 Creatinine 1.1 Sodium 140 Potassium 3.4(L) Calcium 9.0 Protein, Total 6.3(L) Albumin 2.9(L) Bilirubin, Total 0.2 Alkaline Phosphatase 99 Aspartate Aminotransferase 21 Alanine Aminotransferase 24 Ferritin 233 Lactate Dehydrogenase 222 Blood 01/31/2023 Historical Provider CHEMISTRY ORDERAB LES * (ABNORMAL) CBC (with Diff) (01/31/2023) White Blood Cell 6.74 Red Blood Cell 3.26(L) Hemoglobin 9.7(L) Hematocrit 31.0(L) Platelet 318 ANC 4.72 Blood 01/31/2023 Historical Provider HEMATOLOGY ORDERA BLES documented in this encounter Visit Diagnoses Diagnosis Diffuse large B-cell lymphoma of lymph nodes of multiple regions Iron deficiency anemia, unspecified iron deficiency anemia type Clostridium difficile colitis Intestinal infection due to clostridium difficile documented in this encounter Care Teams Back Shoe Operator Relationship Specialty Start Date End Date Frederick Meade MD [address] [facility] [address] [place] [address] PCP - General Family Medicine 11/29/17 documented as of this encounter
--- OUTSIDE RECORDS SUMMARY | 2023-09-26 02:48 | XMS_ITS | Encounter Summary ---
Author Organization [place] [address] Care Team Providers Care Project Development Engineer Name Role Phone Frederick Meade MD Primary Care Provider [phone] [phone] Encounter Details Date Type Department Care Team [...] AM EDT Infusion Hematology Oncology at [address] [address] 10/03/2023 9:00 AM EDT Office Visit Hematology/Oncology at [address] [address] Adrianne Ramon MD [facility] HEMATOLOGY [place] [address] Yael Merlos APRN [facility] HEMATOLOGY [place] [address] 10/03/2023 9:30 AM EDT Infusion Hematology Oncology at [address] [address] 10/10/2023 8:30 AM EDT Infusion Hematology Oncology at [address] [address] 10/10/2023 2:45 PM EDT Appointment XRay at [address] [place] [id number] Micha Givens Jr., MD [facility] HEMATOLOGY [place] [address] 10/10/2023 3:00 PM EDT Appointment Non-[place] [phone] 10/10/2023 3:30 PM EDT Appointment [place] [address] 10/11/2023 8:30 AM EDT Infusion Hematology Oncology at [address] [address] documented as of this encounter Visit Diagnoses Not on filedocumented in this encounter Care Teams Project Development Engineer Relationship Specialty Start Date End Date Frederick Meade MD [address] [place] [address] PCP - General Family Medicine 11/29/17 documented as of this encounter
--- OUTSIDE RECORDS SUMMARY | 2023-09-26 02:49 | XMS_ITS | Encounter Summary ---
Author Organization [facility] [place] [address] Care Team Providers Care Right Of Way Cutter Name Role Phone Frederick Meade MD Primary Care Provider +1 [phone] Encounter Details Date Type Department Care Team (Late st Contact Info) Description 10/19/2022 Telephone Hematology/Oncology at [address] [phone] Brenda Priest, RN Social History [...] AM EDT Infusion Hematology Oncology at [address] [address] 10/03/2023 9:00 AM EDT Office Visit Hematology/Oncology at [address] [address] Adrianne Ramon MD [facility] HEMATOLOGY [place] [address] Yael Merlos, WORKFORCE PLANNER [facility] HEMATOLOGY [place] [address] 10/03/2023 9:30 AM EDT Infusion Hematology Oncology at [address] [phone] 10/10/2023 8:30 AM EDT Infusion Hematology Oncology at [address] [phone] 10/10/2023 2:45 PM EDT Appointment XRay at [address] [place] [address] Micha Givens Jr., MD [facility] DR HEMATOLOGY [place] [address] 10/10/2023 3:00 PM EDT Appointment Non-[place] [address] 10/10/2023 3:30 PM EDT Appoint[place] [address] 10/11/2023 8:30 AM EDT Infusion Hematology Oncology at [address] [phone] documented as of this encounter Visit Diagnoses Not on filedocumented in this encounter Care Teams Right Of Way Cutter Relationship Specialty Start Date End Date Frederick Meade MD [address] [place] [address] [address] PCP - General Family Medicine 11/29/17 documented as of this encounter
--- OUTSIDE RECORDS SUMMARY | 2023-09-26 02:49 | XMS_ITS | Encounter Summary ---
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 No beds so sent to [facility] for [address] CAP, [...] x7 days with nice response. Pathology from [facility] reports large B-cell lymphoma. Double expresser. FISH for translocations are pending. Tongue swelling. No wt loss. Eating and drinking OK. No fevers, infections, No NS. Pain in neck.Prednisone 60mg daily X 7 days. I feel great on prednisone last day of prednisone is today Took iron supplements per PCP - unclear cause. - last COLO at [facility] was 01/17/2012. Cheo returns today with [...] flomax - he will discuss w/ Dr Maede tomorrow. 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 6 mos of adjuvant Lupron. Total dose 79.2 Gy completed 01/26/15 09/29/22 Large B Cell lymphoma - biopsy of tongue and needle of cervical LN. FISH from [place] No MYCrearrangement and no fusion of MYC [...] only 1 biologic. Son Cheo Freire. Enjoys [employer], [employer], race car, [employer]. [employer]ling [employer]. 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 Not a . ETOH: 1-3 beers per week Smoking: Quit 1985. Approximately 33-fmlb-gtoq history Vaping or electronic cigarettes: denies Chewing [...] and BCL-2 protein (Double Expressor.) Flow cytometry ([id number]) supports this interpretation. FISH from [place] No MYC rearrangement and no fusion of MYC and IGH was observed, CD3 (SP7, Thermo Scientific) Background T-cells CD20 (L26, [place]) diffusely positive in Neoplastic B-cells PAX-5 (1EW, Leica) diffusely positive in Neoplastic B-cells CD10 (SP67, [place]) Negative BCL-6 (G/191E/A8, [place]) Positive MUM-1 (MUM1p, [place]ako) Positive Myc (Y69, Abcam) Positive BCL-2 Oncoprotein (124, [place]) Positive Ki67 (MIB-1) (K2, Leica) Greater than 95% of cells in cycle Cyclin D1(SP4-R, [place]) Negative SAPPHIRE JOSE ([id number], Leica) Negative. DIAGNOSTICS: 11/06/22 ECHO after C#1 [...] undergo investigation with ultrasound. CT CAP at [facility], report and images have been requested. ASSESSMENT/PLAN: [...] ejection fraction closely. He saw Dr. Matthew Barbsoa earlier in the week. Ejection fraction on echocardiogram following cycle #1 was stable at 52%.. Dr Barbosa recommended no changes in therapy. We will plan echocardiogram every 2 cycles. Next echo is due following cycle #3 (week 12/04 or 12/13) Prednisone -100 mg p.o. daily on 8/26 and 10/15 only as a bridge to definitive chemotherapy. Furtherprednisone prescriptions will be given by [facility], during PTI chemotherapy teaching Suspected MEHNAZ - Hgb drop 3gm in last 2 weeks. Taking oral iron 2 tabs per day. Stools have been director orange recently. No COLO in last 10 years. [...] in 3 weeks. ECHO following C#3 at [facility] - week of Dec 04 or Dec 11 I discussed all of the above with the patient and all of his questions were answered. Support and counseling as appropriate. This note was written or modified using Bloomspot voice recognition software. The final note was screened for industrial roofer errors. Please excuse any remaining errors. Addendum staff message from Matthew Barbosa, Cardiology: Adrianne; Thanks for the message; will see if we can see him up in [place]. On review of his CT, he has [...] AM EDT Infusion Hematology Oncology at [address] [address] 10/03/2023 9:00 AM EDT Office Visit Hematology/Oncology at [address] [phone] Adrianne Mera MD [facility] DR HEMATOLOGY [place] [address] Yael Merlos APRN [facility] DR HEMATOLOGY [place] [address] 10/03/2023 9:30 AM EDT Infusion Hematology Oncology at [address] [address] 10/10/2023 8:30 AM EDT Infusion Hematology Oncology at [address] [address] 10/10/2023 2:45 PM EDT Appointment XRay at [address] [place] [address] Micha Givens Jr., MD [facility] HEMATOLOGY [place] [address] 10/10/2023 3:00 PM EDT Appointment Non-[place] [address] 10/10/2023 3:30 PM EDT Appointment [place] [address] 10/11/2023 8:30 AM EDT Infusion Hematology Oncology at [address] [phone] documented as of this encounter Procedures Procedure Name Priority Date/Time Associated Diagnosis Comments CBC (WITH DIFF) Routine 11/08/2022 COMPREHENSIVE METABOLIC PANEL Routine 11/08/2022 documented in this encounter Results * Comprehensive metabolic panel (non-fasting) (11/08/2022) Creatinine 1 Potassium 4.0 Bilirubin, Total 0.1 Aspartate Aminotransferase 13 Alanine Aminotransferase 23 Lactate Dehydrogenase 206 Blood 11/08/2022 Historical Provider CHEMISTRY ORDERAB LES * CBC (with Diff) (11/08/2022) White Blood Cell 9.56 Hemoglobin 10.6 Hematocrit 32.0 Platelet 458 ANC 7 Blood 11/08/2022 Historical Provider HEMATOLOGY ORDERA BLES documented in this encounter Visit Diagnoses Diagnosis Diffuse large B-cell lymphoma of lymph nodes of multiple regions High risk medication use Encounter for long-term (current) use of other medications documented in this encounter Care Teams Leadership Coach Relationship Specialty Start Date End Date Frederick Meade MD [address] [place] [address] [address] [place] [address] PCP - General Family Medicine 11/29/17 documented as of this encounter
--- OUTSIDE RECORDS SUMMARY | 2023-09-26 02:49 | XMS_ITS | Encounter Summary ---
Author Organization [facility] Address [facility] [place] [address] Care Team Providers Care Central Office Mechanic Name Role Phone Frederick Meade MD Primary Care Provider +1 -[phone] Encounter Details Date Type Department Care Team (Late st Contact Info) Description 11/08/2022 Notes Only Hematology/Oncology at [address] [phone] Shelley Cason, [facility] MANAGEMENT Social History Tobacco [...] of this encounter Progress Notes * Shelley Csaon MSW - 11/08/2022 11:05 AM EDT Follow [...] needs today. Offered support. Reminded Cheo of PHYSICAL INSTRUCTOR availability and will continue to follow as indicated. Brief assessment Supportive Counseling documented in this encounter Plan of Treatment Upcoming Encounters Date Type Department Care Team (Late st Contact Info) Description 09/26/2023 8:30 AM EDT Infusion Hematology Oncology at [address] [address] 10/03/2023 9:00 AM EDT Office Visit Hematology/Oncology at [address] [address] Adrianne Ramon MD [facility] HEMATOLOGY [place] [address] Yael Merlos, ELECTROTYPER HELPER [facility] DR HEMATOLOGY [place] [address] 10/03/2023 9:30 AM EDT Infusion Hematology Oncology at [address] [phone] 10/10/2023 8:30 AM EDT Infusion Hematology Oncology at [address] [phone] 10/10/2023 2:45 PM EDT Appointment XRay at [address] [place] [address] Micha Givens Jr., MD [facility] DR HEMATOLOGY [place] [address] 10/10/2023 3:00 PM EDT Appointment Non-[place] [address] 10/10/2023 3:30 PM EDT Appointment [place] [address] 10/11/2023 8:30 AM EDT Infusion Hematology Oncology at [address] [phone] documented as of this encounter Visit Diagnoses Not on filedocumented in this encounter Care Teams Central Office Mechanic Relationship Specialty Start Date End Date Frederick Meade MD [address] [place] [address] [address] PCP - General Family Medicine 11/29/17 documented as of this encounter
--- OUTSIDE RECORDS SUMMARY | 2023-09-26 02:49 | XMS_ITS | Encounter Summary ---
Author Organization [facility] Address [facility] [place] [address] Care Team Providers Care Radiation Oncology Therapist Name Role Phone Frederick Meade MD Primary Care Provider +1 -[phone] Encounter Details Date Type Department Care Team (Late st Contact Info) Description 12/06/2022 2:30 PM EDT TH Visit (TeleHealth) Hematology/Oncology at [address] [phone] Adrianne Ramon MD [facility] DR HEMATOLOGY [place] [address] Diffuse large B-cell lymphoma of lymph nodes [...] - 12/06/2022 3:30 PM EDT Hematology Clinic [facility] [place] [id number] HEMATOLOGY PATIENT EVALUATION Patient Active Problem List [...] ~2 weeks ago saw Express Care in [facility] and when to [facility]. No beds so sent to [facility] for [address] CAP, MRI,and [...] x7 days with nice response. Pathology from [facility] reports large B-cell lymphoma. Double expresser. FISH [...] and needle of cervical LN. FISH from [place] No MYCrearrangement and no fusion of MYC [...] only 1 biologic. Son Cheo Freire. Enjoys Caregivers, [employer], [employer], [employer]. 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 Not a . ETOH: 1-3 beers per week Smoking: Quit 1985. Approximately 25-uych-qidw history Vaping or electronic cigarettes: denies Chewing [...] is a delightful 72-year old male in [facility]. He is accompanied to [...] and BCL-2 protein (Double Expressor.) Flow cytometry ([id number]) supports this interpretation. FISH from [place] No MYC rearrangement and no fusion of MYC and IGH was observed, CD3 (SP7, Thermo Scientific) Background T-cells CD20 (L26, [place]) diffusely positive in Neoplastic B-cells PAX-5 (1EW, Leica) diffusely positive in Neoplastic B-cells CD10 (SP67, [place]) Negative BCL-6 (G/191E/A8, [place]) Positive MUM-1 (MUM1p, Dako) Positive Myc (Y69, Abcam) Positive BCL-2 Oncoprotein (124, [place]) Positive Ki67 (MIB-1) (K2, Leica) Greater than 95% of cells in cycle Cyclin D1(SP4-R, [place]) Negative SAPPHIRE JOSE ([id number], Leica) Negative. DIAGNOSTICS: 11/28/22 ECHO after C#2 [...] last ECHO on 11/28/22) Next ECHO at [facility] on 01/25/23 Suspected MEHNAZ - Hgb drop 3gm in last 2 weeks. No overt bleeding. Taking oral iron bid. 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 No COLO in last 10 years. [...] 01/25/23 at [facility] Stop iron, not MEHNAZ, has anemia of [...] AM EDT Infusion Hematology Oncology at [address] [phone] 10/03/2023 9:00 AM EDT Office Visit Hematology/Oncology at [address] [address] Adrianne Ramon MD [facility] DR HEMATOLOGY [place] [address] Yael Merlos APRN [facility] HEMATOLOGY [place] [address] 10/03/2023 9:30 AM EDT Infusion Hematology Oncology at [address] [phone] 10/10/2023 8:30 AM EDT Infusion Hematology Oncology at [address] [phone] 10/10/2023 2:45 PM EDT Appointment XRay at [address] [place] [address] Micha Givens Jr., MD [facility] HEMATOLOGY [place] [address] 10/10/2023 3:00 PM EDT Appointment Non[place] [address] 10/10/2023 3:30 PM EDT Appointment [place] [address] 10/11/2023 8:30 AM EDT Infusion Hematology Oncology at [address] [phone] documented as of this encounter Procedures Procedure Name Priority Date/Time Associated Diagnosis Comments CBC (WITH DIFF) Routine 12/06/2022 COMPREHENSIVE METABOLIC PANEL Routine 12/06/2022 documented in this encounter Results * Comprehensive metabolic panel (non-fasting) (12/06/2022) Creatinine 0.9 Potassium 3.3 Bilirubin, Total 0.3 Alkaline Phosphatase 152 Aspartate Aminotransferase 14 Alanine Aminotransferase 17 Lactate Dehydrogenase 155 Iron 34 TIBC 201 Iron Saturation 17 Ferritin 605 Blood 12/06/2022 Historical Provider CHEMISTRY ORDERAB LES * CBC (with Diff) (12/06/2022) White Blood Cell 4.99 Hemoglobin 9.2 Hematocrit 27.9 Platelet 139 ANC 3.74 Blood 12/06/2022 Historical Provider HEMATOLOGY ORDERA BLES documented in this encounter Visit Diagnoses Diagnosis 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
--- OUTSIDE RECORDS SUMMARY | 2023-09-26 02:49 | XMS_ITS | Encounter Summary ---
Author Organization Pending Sale [facility] [place] [address] Care Team Providers Care Repulping Supervisor Name Role Phone Frederick Meade MD Primary Care Provider +1 [phone] Encounter Details Date Type Department Care Team (Late st Contact Info) Description 11/16/2022 Orders Only Hematology [place] [phone] Adrianne Ramon MD [facility] [address] [place] [address] High risk medication use; Diffuse large B-cell [...] AM EDT Infusion Hematology Oncology at [address] [address] 10/03/2023 9:00 AM EDT Office Visit Hematology/Oncology at [address] [address] Adrianne Ramon MD [facility] [place] [address] Yael Merlos, KARLA [facility] HEMATOLOGY [place] [address] 10/03/2023 9:30 AM EDT Infusion Hematology Oncology at [address] [address] 10/10/2023 8:30 AM EDT Infusion Hematology Oncology at [address] [address] 10/10/2023 2:45 PM EDT Appointment XRay at [address] [place] [address] Micha Givens Jr., MD [facility] [address] [place] [address] 10/10/2023 3:00 PM EDT Appointment Non-[place] [address] 10/10/2023 3:30 PM EDT Appointment [place] [address] 10/11/2023 8:30 AM EDT Infusion Hematology Oncology at [address] [address] documented as of this encounter Visit Diagnoses Diagnosis High risk medication use Encounter for long-term (current) use of other medications 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
--- OUTSIDE RECORDS SUMMARY | 2023-09-26 02:49 | XMS_ITS | Encounter Summary ---
Author Organization [facility] Address [facility] [place] [address] Care Team Providers Care Senior Linux Unix Administrator Name Role Phone Frederick Meade MD Primary Care Provider [phone] [phone] Encounter Details Date Type Department Care Team (Late st Contact Info) Description 10/18/2022 Notes Only Hematology/Oncology at [address] [address] Shelley Cason, [facility] OFFICE OF CARE MANAGEMENT Social History [...] of this encounter Progress Notes * Shelley Casno, APRON CLEANER - 10/18/2022 11:54 AM EDT Reason for Referral: Brief assessment of social and emotional needs. Met with Cheo, his Claritza and his son Cheo during his first infusion visit today to introduce myself and role of hospital social worker to assess/address barriers to getting to [...] Advance care planning Plan: Informed pt of APRON CLEANER availability and contact information. Will follow to assess/address psychosocial needs. FRANCISCO J Wisdom, VICE CHAIR, OSW-C Halver Machine Operator [facility] documented in this encounter Plan of Treatment Upcoming Encounters Date Type Department Care Team (Late st Contact Info) Description 09/26/2023 8:30 AM EDT Infusion Hematology Oncology at [address] [address] 10/03/2023 9:00 AM EDT Office Visit Hematology/Oncology at [address] [address] Adrianne Ramon MD [facility] [address] HEMATOLOGY [place] [address] Yael Merlos APRN [facility] [address] HEMATOLOGY [place] [address] 10/03/2023 9:30 AM EDT Infusion Hematology Oncology at [address] [address] 10/10/2023 8:30 AM EDT Infusion Hematology Oncology at [address] [address] 10/10/2023 2:45 PM EDT Appointment XRay at [address] [place] [address] Micha Givens Jr., MD [facility] HEMATOLOGY [place] [address] 10/10/2023 3:00 PM EDT Appointment Non-[place]vasive [place] [address] 10/10/2023 3:30 PM EDT Appointment [place] [address] 10/11/2023 8:30 AM EDT Infusion Hematology Oncology at [address] [address] documented as of this encounter Visit Diagnoses Not on filedocumented in this encounter Care Teams Senior Linux Unix Administrator Relationship Specialty Start Date End Date Frederick Meade MD [address] [place] [address] PCP - General Family Medicine 11/29/17 documented as of this encounter
--- OUTSIDE RECORDS SUMMARY | 2023-09-26 02:49 | XMS_ITS | Encounter Summary ---
Author Organization [facility] Address [facility] [place] [address] Care Team Providers Care Looping Machine Operator Name Role Phone Frederick Meade MD Primary Care Provider [phone] [phone] Encounter Details Date Type Department Care Team (Late st Contact Info) Description 11/29/2022 Notes Only Hematology/Oncology at [address] [address] Shelley Cason, [facility] OFFICE OF CARE MANAGEMENT Social History Tobacco [...] the team is looking at more affordableoptions. LEAD ACCOUNTANT does not have a solution to the cost but offered information about the [facility] [employer] which if approved would send a monthly [...] AM EDT Infusion Hematology Oncology at [address] [address] 10/03/2023 9:00 AM EDT Office Visit Hematology/Oncology at [address] [address] Adrianne Ramon MD [facility] HEMATOLOGY AND ONCOLOGY [place] [phone] Yael Merlos, KARLA [facility] HEMATOLOGY [place] [address] 10/03/2023 9:30 AM EDT Infusion Hematology Oncology at [address] [phone] 10/10/2023 8:30 AM EDT Infusion Hematology Oncology at [address] [address] 10/10/2023 2:45 PM EDT Appointment XRay at [address] [place] [address] Micha Givens Jr., MD [facility] HEMATOLOGY [place] [address] 10/10/2023 3:00 PM EDT Appointment Non-[place]vasive [place] [address] 10/10/2023 3:30 PM EDT [place] [address] 10/11/2023 8:30 AM EDT Infusion Hematology Oncology at [address] [address] documented as of this encounter Visit Diagnoses Not on filedocumented in this encounter Care Teams Looping Machine Operator Relationship Specialty Start Date End Date Frederick Meade MD [address] [place] [address] PCP - General Family Medicine 11/29/17 documented as of this encounter
--- OUTSIDE RECORDS SUMMARY | 2023-09-26 02:49 | XMS_ITS | Encounter Summary ---
[place] [address] Care Team Providers Care Plastic Block Boiler Reliner Name Role Phone Frederick Meade MD Primary Care Provider [phone] [phone] Encounter Details Date Type Department Care Team (Late st Contact Info) Description 10/25/2022 Telephone Hematology [place] [address] Davey Magdaleno MD [facility] DR HEMATOLOGY/[place] [address] Social History Tobacco Use Types Packs/Day Years [...] a call from Dr. Mcbride (Hospitalist) at [facility] this morning in regards to Cheo. 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 He presented to [facility] with an oral temp of 38.6. [...] saw Dr. Ramon, on 10/12 [facility] ne[facility]ogen. I am told [...] AM EDT Infusion Hematology Oncology at [address] [address] 10/03/2023 9:00 AM EDT Office Visit Hematology/Oncology at [address] [address] Adrianne Ramon MD [facility] HEMATOLOGY [place] [address] Yael Merlos APRN [facility] HEMATOLOGY [place] [address] 10/03/2023 9:30 AM EDT Infusion Hematology Oncology at [address] [address] 10/10/2023 8:30 AM EDT Infusion Hematology Oncology at [address] [address] 10/10/2023 2:45 PM EDT Appointment XRay at [address] [place] [address] Micha Givens Jr., MD [facility] HEMATOLOGY [place] [address] 10/10/2023 3:00 PM EDT Appointment Non-[place]vasive [place] [address] 10/10/2023 3:30 PM EDT Appointment [place] [address] 10/11/2023 8:30 AM EDT Infusion Hematology Oncology at [address] [address] documented as of this encounter Visit Diagnoses Not on filedocumented in this encounter Care Teams Plastic Block Boiler Reliner Relationship Specialty Start Date End Date Frederick Meade MD [address] [place] [address] [address] [place] [address] PCP - General Family Medicine 11/29/17 documented as of this encounter
--- OUTSIDE RECORDS SUMMARY | 2023-09-26 02:49 | XMS_ITS | Encounter Summary ---
Author Organization [facility] Address [facility] [place] [address] Care Team Providers Care Document Review Specialist Name Role Phone Frederick Meade MD Primary Care Provider [phone] [phone] Reason for Visit * Reason Onset Date Comments Other 11/15/2022 To ER Encounter Details Date Type Department Care Team (Late st Contact Info) Description 11/15/2022 Telephone Hematology/Oncology at [address] [address] Polly Orellana RN Other (To [...] Ramon ask he go to ER. Called [facility] Er and gave report to RN. Recent notes faxed. documented in this encounter Plan of Treatment Upcoming Encounters Date Type Department Care Team (Late st Contact Info) Description 09/26/2023 8:30 AM EDT Infusion Hematology Oncology at [address] [address] 10/03/2023 9:00 AM EDT Office Visit Hematology/Oncology at [address] [address] Adrianne Ramon MD [facility] HEMATOLOGY [place] [address] Yael Merlso, SALMON GILLNET VESSEL OPERATOR [facility] [place] [address] 10/03/2023 9:30 AM EDT Infusion Hematology Oncology at [address] [address] 10/10/2023 8:30 AM EDT Infusion Hematology Oncology at [address] [address] 10/10/2023 2:45 PM EDT Appointment XRay at [address] [place] [address] Micha Givens Jr., MD [facility] DR HEMATOLOGY AND [place] [address] 10/10/2023 3:00 PM EDT Appointment Non-Invasive [place] [address] 10/10/2023 3:30 PM EDT Appointment [place] [address] 10/11/2023 8:30 AM EDT Infusion Hematology Oncology at [address] [address] documented as of this encounter Visit Diagnoses Not on filedocumented in this encounter Care Teams Document Review Specialist Relationship Specialty Start Date End Date Frederick Meade MD [address] [facility] [address] [place] [address] PCP - General Family Medicine 11/29/17 documented as of this encounter
--- OUTSIDE RECORDS SUMMARY | 2023-09-26 02:49 | XMS_ITS | Encounter Summary ---
Author Organization [facility] [place] [address] Care Team Providers Care Cte Teacher Name Role Phone Frederick Meade MD Primary Care Provider [phone] [phone] Encounter Details Date Type Department Care Team [...] AM EDT Infusion Hematology Oncology at [address] [address] 10/03/2023 9:00 AM EDT Office Visit Hematology/Oncology at [address] [address] Adrianne Ramon MD [facility] HEMATOLOGY [place] [address] Yael Merlos APRN [facility] HEMATOLOGY [place] [address] 10/03/2023 9:30 AM EDT Infusion Hematology Oncology at [address] [address] 10/10/2023 8:30 AM EDT Infusion Hematology Oncology at [address] [address] 10/10/2023 2:45 PM EDT Appointment XRay at [address] [place] [address] Micha Givens Jr., MD [facility] HEMATOLOGY [place] [address] 10/10/2023 3:00 PM EDT Appointment Non-[place]vasive [place] [address] 10/10/2023 3:30 PM EDT Appointment [place] [address] 10/11/2023 8:30 AM EDT Infusion Hematology Oncology at [address] [address] documented as of this encounter Visit Diagnoses Not on filedocumented in this encounter Care Teams Cte Teacher Relationship Specialty Start Date End Date Frederick Meade MD [address] [place] [address] PCP - General Family Medicine 11/29/17 documented as of this encounter
--- OUTSIDE RECORDS SUMMARY | 2023-09-26 02:49 | XMS_ITS | Encounter Summary ---
Author Organization [facility] [place] [address] Care Team Providers Care Certified Legal Secretary Specialist Name Role Phone Frederick Meade MD Primary Care Provider [phone] [phone] Reason for Visit * Reason Onset Date Comments Follow-up 11/01/2022 Encounter Details Date Type Department Care Team (Late st Contact Info) Description 11/01/2022 Telephone Hematology/Oncology at [address] [address] Polly Orellana RN Follow-up Social [...] Dr. Ramon needs them to go to [facility] next Sunday to see Dr. Barbosa. They feel if things continue to get better therewill be no issue, they will let us know if things change. documented in this encounter Plan of Treatment Upcoming Encounters Date Type Department Care Team (Late st Contact Info) Description 09/26/2023 8:30 AM EDT Infusion Hematology Oncology at [address] [address] 10/03/2023 9:00 AM EDT Office Visit Hematology/Oncology at [address] [address] Adrianne Ramon MD [facility] HEMATOLOGY [place] [address] Yael Merlos, TOOL CRIB LEAD [facility] HEMATOLOGY [place] [address] 10/03/2023 9:30 AM EDT Infusion Hematology Oncology at [address] [phone] 10/10/2023 8:30 AM EDT Infusion Hematology Oncology at [address] [address] 10/10/2023 2:45 PM EDT Appointment XRay at [address] [place] [address] Micha Givens Jr., MD [facility] HEMATOLOGY [place] [address] 10/10/2023 3:00 PM EDT Appointment Non-[place] [address] 10/10/2023 3:30 PM EDT Appointment [place] [address] 10/11/2023 8:30 AM EDT Infusion Hematology Oncology at [address] [phone] documented as of this encounter Visit Diagnoses Not on filedocumented in this encounter Care Teams Certified Legal Secretary Specialist Relationship Specialty Start Date End Date Fredeirck Meade MD [address] [place] [address] PCP - General Family Medicine 11/29/17 documented as of this encounter
--- OUTSIDE RECORDS SUMMARY | 2023-09-26 02:49 | XMS_ITS | Encounter Summary ---
Author Organization Count Includes [facility] [address] Care Team Providers Care Hired Hand Name Role Phone Frederick Meade MD Primary Care Provider +1 [phone] Reason for Visit * Reason Comments Chemotherapy [...] [facility] DR [place] [address] [facility] Infusion [address] [place] [address] Referral ID Status Reason Start Date Expiration Date Visits Re quested Visits Authorized [id number] Closed 10/11/2022 10/11/2023 1 100 Encounter Details Date Type Department Care Team (Late st Contact Info) Description 11/29/2022 9:30 AM EDT Infusion Hematology Oncology at [address] [address] Diffuse large B-cell lymphoma of [...] treatment. OBJECTIVE LAB DATA: completed 11/29 at [facility] Pre administration: Chemotherapy orders independently verified for [...] AM EDT Infusion Hematology Oncology at [address] [address] 10/03/2023 9:00 AM EDT Office Visit Hematology/Oncology at [address] [address] Adrianne Ramon MD [facility] HEMATOLOGY [place] [address] Yael Merlos APRN [facility] HEMATOLOGY [place] [address] 10/03/2023 9:30 AM EDT Infusion Hematology Oncology at [address] [address] 10/10/2023 8:30 AM EDT Infusion Hematology Oncology at [address] [address] 10/10/2023 2:45 PM EDT Appointment XRay at [address] [place] [address] Micha Givens Jr., MD [facility] HEMATOLOGY [place] [address] 10/10/2023 3:00 PM EDT Appointment Non-Invasive [place] [address] 10/10/2023 3:30 PM EDT Appoint[place] [address] 10/11/2023 8:30 AM EDT Infusion Hematology Oncology at [address] [address] documented as of this encounter [...] 2 minutes is a recommendation from the regulatory product manager. Administer prior to chemotherapy., Routine Given 11/29/2022 [...] (IV) Procedure: Accessing Implanted Vascular Access Devices (164) procedure and/or Intravenous (IV) Job Aid: Adult Flushing & Catheter Care (3672) job aid for additional information regarding guidelines [...] Job Aid: Adult Flushing & Catheter Care (0178) job aid for additional information regarding guidelines [...] mL/hr documented in this encounter Care Teams Hired Hand Relationship Specialty Start Date End Date Frederick Meade MD [address] [place] [address] PCP - General Family Medicine 11/29/17 documented as of this encounter
--- OUTSIDE RECORDS SUMMARY | 2023-09-26 02:49 | XMS_ITS | Encounter Summary ---
Author Organization [facility] [place] [address] Care Team Providers Care Black Jack Dealer Name Role Phone Frederick Meade MD Primary Care Provider [phone] [phone] Reason for Visit * Reason Comments Chemotherapy [...] TC CYCLOPHOSPHAMIDE, 100MG (CYTOXAN) Adrianne Ramon MD [facility] [place] [address] [facility] Infusion [address] [place] [address] Referral ID Status Reason Start Date Expiration Date Visits Re quested Visits Authorized [id number] Closed 10/11/2022 10/11/2023 1 100 Encounter Details Date Type Department Care Team (Late st Contact Info) Description 12/20/2022 8:30 AM EDT Infusion Hematology Oncology at [address] [address] Diffuse large B-cell lymphoma of [...] treatment. OBJECTIVE LAB DATA: completed 12/20 at [facility] Pre administration: Chemotherapy orders independently verified for drug name, route, and dosage per patient's height, weight and BSA by JOAQUINA HAQUE, RN and pharmacist onsite. REACTIONS (DESCRIPTION, TIME, [...] AM EDT Infusion Hematology Oncology at [address] [address] 10/03/2023 9:00 AM EDT Office Visit Hematology/Oncology at [address] [address] Adrianne Ramon MD [facility] HEMATOLOGY [place] [address] Yael Merlos APRN [facility] HEMATOLOGY [place] [address] 10/03/2023 9:30 AM EDT Infusion Hematology Oncology at [address] [address] 10/10/2023 8:30 AM EDT Infusion Hematology Oncology at [address] [address] 10/10/2023 2:45 PM EDT Appointment XRay at [address] [place] [address] Micha Givens Jr., MD [facility] HEMATOLOGY [place] [address] 10/10/2023 3:00 PM EDT Appointment Non[place] [address] 10/10/2023 3:30 PM EDT Appointment [place] [address] 10/11/2023 8:30 AM EDT Infusion Hematology Oncology at [address] [address] documented as of this encounter [...] 2 minutes is a recommendation from the nozzle and sleeve worker. Administer prior to chemotherapy., Routine Given 12/20/2022 [...] (IV) Procedure: Accessing Implanted Vascular Access Devices (334) procedure and/or Intravenous (IV) Job Aid: Adult Flushing & Catheter Care (5828) job aid for additional information regarding guidelines [...] mL/hr documented in this encounter Care Teams Black Jack Dealer Relationship Specialty Start Date End Date Frederick Meade MD [address] [place] [address] PCP - General Family Medicine 11/29/17 documented as of this encounter
--- OUTSIDE RECORDS SUMMARY | 2023-09-26 02:49 | XMS_ITS | Encounter Summary ---
Author Organization [facility] [place] [address] Care Team Providers Care Surveillance Camera Technician Name Role Phone Frederick Meade MD Primary Care Provider [phone] [phone] Reason for Visit * Reason Comments Chemotherapy [...] 100MG (CYTOXAN) Adrianne Ramon MD [facility] [place] [address] [facility] Infusion [address] [place] [address] Referral ID Status Reason Start Date Expiration Date Visits Re quested Visits Authorized [id number] Closed 10/11/2022 10/11/2023 1 100 Encounter Details Date Type Department Care Team (Late st Contact Info) Description 11/08/2022 10:00 AM EDT Infusion Hematology Oncology at [address] [address] Diffuse large B-cell lymphoma of [...] treatment. OBJECTIVE LAB DATA: completed 11/08 at [facility] Pre administration: Chemotherapy orders independently verified [...] AM EDT Infusion Hematology Oncology at [address] [address] 10/03/2023 9:00 AM EDT Office Visit Hematology/Oncology at [address] [address] Adrianne Ramon MD [facility] HEMATOLOGY [place] [address] Yael Merlos, KARLA [facility] [address] HEMATOLOGY [place] [address] 10/03/2023 9:30 AM EDT Infusion Hematology Oncology at [address] [address] 10/10/2023 8:30 AM EDT Infusion Hematology Oncology at [address] [address] 10/10/2023 2:45 PM EDT Appointment XRay at [address] [place] [address] Micha Givens Jr., MD [facility] HEMATOLOGY [place] [address] 10/10/2023 3:00 PM EDT Appointment Non-Invasive [place] [address] 10/10/2023 3:30 PM EDT [place]oint[place] [address] 10/11/2023 8:30 AM EDT Infusion Hematology Oncology at [address] [address] documented as of this encounter [...] 2 minutes is a recommendation from the hood fitter. Administer prior to chemotherapy., Routine Given 11/08/2022 [...] (IV) Procedure: Accessing Implanted Vascular Access Devices (174) procedure and/or Intravenous (IV) Job Aid: Adult Flushing & Catheter Care (1540) job aid for additional information regarding guidelines [...] Job Aid: Adult Flushing & Catheter Care (6244) job aid for additional information regarding guidelines [...] mL/hr documented in this encounter Care Teams Surveillance Camera Technician Relationship Specialty Start Date End Date Frederick Meade MD [address] [place] [address] PCP - General Family Medicine 11/29/17 documented as of this encounter
--- OUTSIDE RECORDS SUMMARY | 2023-09-26 02:49 | XMS_ITS | Encounter Summary ---
[place] [address] Care Team Providers Care Front Tender Name Role Phone Frederick Meade MD Primary Care Provider [phone] [phone] Encounter Details Date Type Department Care Team (Late st Contact Info) Description 10/24/2022 Telephone Hematology [place] [phone] Castro Jimenez MD [facility] HEMATOLOGY/[place] [address] Social History Tobacco Use Types Packs/Day Years [...] Dr. Ramon, . office Castro Jimenez MD [facility] Hematology Oncology Fellow Page [phone] documented in this encounter Plan of Treatment Upcoming Encounters Date Type Department Care Team (Late st Contact Info) Description 09/26/2023 8:30 AM EDT Infusion Hematology Oncology at [address] [phone] 10/03/2023 9:00 AM EDT Office Visit Hematology/Oncology at [address] [phone] Adrianne Ramon MD [facility] DR HEMATOLOGY AND [place] [address] Yael Merlos, PROPULSION MOTOR AND GENERATOR REPAIRER [facility] [place] [address] 10/03/2023 9:30 AM EDT Infusion Hematology Oncology at [address] [phone] 10/10/2023 8:30 AM EDT Infusion Hematology Oncology at [address] [phone] 10/10/2023 2:45 PM EDT Appointment XRay at [address] [place] [address] Micha Givens Jr., MD [facility] [place] [address] 10/10/2023 3:00 PM EDT Appointment Non-[place]vasive [place] [address] 10/10/2023 3:30 PM EDT Appoint[place] [address] 10/11/2023 8:30 AM EDT Infusion Hematology Oncology at [address] [phone] documented as of this encounter Visit Diagnoses Not on filedocumented in this encounter Care Teams Front Tender Relationship Specialty Start Date End Date Frederick Meade MD [address] [place] [address] [address] PCP - General Family Medicine 11/29/17 documented as of this encounter
--- OUTSIDE RECORDS SUMMARY | 2023-09-26 02:49 | XMS_ITS | Encounter Summary ---
Author Organization [facility] Address [facility] [place] [address] Care Team Providers Care Pilot Safety Inspector Name Role Phone Frederick Meade MD Primary Care Provider [phone] [phone] Reason for Visit * Consultation (Urgent) - Closed Specialty Diagnoses / Procedures Referred By Contac t Referred To Contact Cardiology Diagnoses Diffuse large B-cell lymphoma of lymph nodes of multiple regions CARD-ONC Pt w/o cardiac hx. New lymphoma. Needs anthracycline. Echo w/ EF 49% & mild global hypokinesis. Please eval for ongoing anthracycline safety. Adrianne Ramon MD [facility] [place] [address] Chalo Barbosa MD [facility] [place] [place] [address] Referral ID Status Reason Start Date Expiration Date V isits Requested Visits Authorized [id number] Closed Consult, Test & Treat 10/12/2022 10/12/2023 1 1 Encounter Details Date Type Department Care Team (Latest Contact Info) Description 11/06/2022 2:10 PM EDT Office Visit Cardiology at [place] [phone] Chalo Barbosa MD [facility] [place] [address] Abnormal echocardiogram Social History Tobacco Use Types [...] from the original note were not included. [facility] Mike, [place] [address] CARDIO-ONCOLOGY CONSULTATION Cheo Santos Teressagisell Primary Care [...] Office Visit from 11/06/2022 in Cardiology at [facility] [place] Office Visit from 10/18/2022 in Hematology/Oncology at [facility] Weight 93 kg (205 lb) [...] AM EDT Infusion Hematology Oncology at [address] [phone] 10/03/2023 9:00 AM EDT Office Visit Hematology/Oncology at [address] [phone] Adrianne Ramon MD [facility] [place] [address] Yael Merlos, BUSINESS ATTORNEY [facility] [place] [address] 10/03/2023 9:30 AM EDT Infusion Hematology Oncology at [address] [phone] 10/10/2023 8:30 AM EDT Infusion Hematology Oncology at [address] [phone] 10/10/2023 2:45 PM EDT Appointment XRay at [address] [place] [address] Micha Givens Jr., MD [facility] HEMATOLOGY [place] [address] 10/10/2023 3:00 PM EDT Appointment Non-[place] [address] 10/10/2023 3:30 PM EDT Appointment [place] [address] 10/11/2023 8:30 AM EDT Infusion Hematology Oncology at [address] [phone] Scheduled Referrals Name Type Priority Associated Diagnoses Order Schedule Referral to Cardiology Outpatient Referral Urgent Diffuse large B-cell lymphoma of lymph nodes of multiple regions Ordered: 10/12/2022 documented as of this encounter Visit Diagnoses Diagnosis Abnormal echocardiogram Nonspecific (abnormal) findings on radiological and other examination of other intrathoracic organs documented in this encounter Care Teams Pilot Safety Inspector Relationship Specialty Start Date End Date Frederick Meade MD [address] [address] PCP - General Family Medicine 11/29/17 documented as of this encounter
--- OUTSIDE RECORDS SUMMARY | 2023-09-26 02:49 | XMS_ITS | Encounter Summary ---
Author Organization [facility] [place] [address] Care Team Providers Care Manufacturing Machine Operator Name Role Phone Frederick Meade MD Primary Care Provider [phone] [phone] Encounter Details Date Type Department Care Team (Late st Contact Info) Description 11/29/2022 9:00 AM EDT Office Visit Hematology/Oncology at [address] [phone] Adrianne Ramon MD [facility] DR [place] [address] Yael Merlos APRN [facility] DR [place] [address] Diffuse large B-cell lymphoma of lymph nodes [...] - 11/29/2022 9:00 AM EDT Hematology Clinic [facility] [place] [address] HEMATOLOGY PATIENT EVALUATION Patient Active Problem List [...] [facility] and when to [facility]. No beds so sent to [facility] for [address] CAP, [...] unclear cause. - last COLO at [facility] was 01/17/2012. INTERIM HISTORY OF PRESENT ILLNESS: [...] and needle of cervical LN. FISH from [place] No MYCrearrangement and no fusion of MYC [...] only 1 biologic. Son Cheo Freire. Enjoys [employer], [employer], [employer], [employer]. [employer]. 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 Not a . ETOH: 1-3 beers per week Smoking: Quit 1985. Approximately 08-rvnn-phtm history Vaping or electronic cigarettes: denies Chewing [...] is a delightful 72-year old male in [facility]. He is accompanied to [...] and BCL-2 protein (Double Expressor.) Flow cytometry ([id number]) supports this interpretation. FISH from [place] No MYC rearrangement and no fusion of MYC and IGH was observed, CD3 (SP7, [employer]) Background T-cells CD20 (L26, [place]) diffusely positive in Neoplastic B-cells PAX-5 (1EW, [employer]) diffusely positive in Neoplastic B-cells CD10 (SP67, [place]) Negative BCL-6 (G/191E/A8, [place]) Positive MUM-1 (MUM1p, [employer]) Positive Myc (Y69, [employer]) Positive BCL-2 Oncoprotein (124, [place]) Positive Ki67 (MIB-1) (K2, [employer]) Greater than 95% of cells in cycle Cyclin D1(SP4-R, [place]) Negative SAPPHIRE JOSE ([id number], [employer]) Negative. DIAGNOSTICS: 10/10/23 ECHO after C#2 [...] undergo investigation with ultrasound. CT CAP at [facility], report and images have been [...] Taking oral iron bid. 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 No COLO in last 10 years. [...] AM EDT Infusion Hematology Oncology at [address] [phone] 10/03/2023 9:00 AM EDT Office Visit Hematology/Oncology at [address] [phone] Adrianne Ramon MD [facility] DR [place] [address] Yael Merlos APRN [facility] [place] [address] 10/03/2023 9:30 AM EDT Infusion Hematology Oncology at [address] [phone] 10/10/2023 8:30 AM EDT Infusion Hematology Oncology at [address] [phone] 10/10/2023 2:45 PM EDT Appointment XRay at [address] [place] [address] Micha Givens Jr., MD [facility] [place] [address] 10/10/2023 3:00 PM EDT Appointment Non-[place]vasive [place] [address] 10/10/2023 3:30 PM EDT Appointment [place] [address] 10/11/2023 8:30 AM EDT Infusion Hematology Oncology at [address] [phone] Scheduled Orders Name Type Priority Associated Diagnoses [...] (WITH DIFF) Routine 11/29/2022 COMPREHENSIVE METABOLIC PANEL Routine 11/29/2022 documented in this encounter Results * Comprehensive metabolic panel (non-fasting) (11/29/2022) Creatinine 0.9 Potassium 3.6 Bilirubin, Total 0.2 Aspartate Aminotransferase 19 Alanine Aminotransferase 22 Lactate Dehydrogenase 174 Blood 11/29/2022 Historical Provider CHEMISTRY ORDERAB LES * CBC (with Diff) (11/29/2022) White Blood Cell 7.43 Hemoglobin 9.7 Hematocrit 30.0 Platelet 446 ANC 5.3 Blood 11/29/2022 Historical Provider HEMATOLOGY ORDERA BLES documented in this encounter Visit Diagnoses Diagnosis Diffuse large B-cell lymphoma of lymph nodes of multiple regions Iron deficiency anemia, unspecified iron deficiency anemia type High risk medication use Encounter for long-term (current) use of other medications Non-Hodgkin lymphoma of lymph nodes of multiple regions, unspecified non-Hodgkin lymphoma type documented in this encounter Care Teams Manufacturing Machine Operator Relationship Specialty Start Date End Date Frederick Meade MD [address] [place] [address] PCP - General Family Medicine 11/29/17 documented as of this encounter
--- OUTSIDE RECORDS SUMMARY | 2023-09-26 02:49 | XMS_ITS | Encounter Summary ---
Author Organization [facility] Address [facility] [place] [address] Care Team Providers Care Director Of Product Development Name Role Phone Frederick Meade MD Primary Care Provider [phone] [phone] Reason for Visit * Reason Onset Date Comments Other 10/30/[address] admission to [facility] Encounter Details Date Type Department Care Team (Late st Contact Info) Description 10/30/2022 Telephone Hematology/Oncology at [address] [phone] Lucía Nelson RN Other (FUV questions after admission to [facility]) Social History Tobacco Use Types Packs/Day Years [...] - 10/30/2022 10:39 AM EDT Cheo Freire [phone] Cheo was admitted to [facility] 10/25-10/29 for fevers and neutropenia. Missed his pita apt that Shayy Jarrett APRN was going to do last week. [facility] Cycle 1 10/18. Cycle 2- scheduled for [...] AM EDT Infusion Hematology Oncology at [address] [address] 10/03/2023 9:00 AM EDT Office Visit Hematology/Oncology at [address] [address] Adrianne Ramon MD [facility] HEMATOLOGY [place] [address] Yael Merlos APRN [facility] HEMATOLOGY [place] [address] 10/03/2023 9:30 AM EDT Infusion Hematology Oncology at [address] [address] 10/10/2023 8:30 AM EDT Infusion Hematology Oncology at [address] [address] 10/10/2023 2:45 PM EDT Appointment XRay at [address] [place] [phone] Micha Givens Jr., MD [facility] HEMATOLOGY [place] [address] 10/10/2023 3:00 PM EDT Appointment Non-[place] [address] 10/10/2023 3:30 PM EDT Appointment [place] [address] 10/11/2023 8:30 AM EDT Infusion Hematology Oncology at [address] [phone] documented as of this encounter Visit Diagnoses Not on filedocumented in this encounter Care Teams Director Of Product Development Relationship Specialty Start Date End Date Frederick Meade MD [address] [place] [address] PCP - General Family Medicine 11/29/17 documented as of this encounter
--- OUTSIDE RECORDS SUMMARY | 2023-09-26 02:49 | XMS_ITS | Encounter Summary ---
Author Organization [facility] [place] [address] Care Team Providers Care Stamping Machine Operator Name Role Phone Frederick Meade MD Primary Care Provider [phone] Reason for Visit * Reason Onset Date Comments Questions 11/14/2022 Encounter Details Date Type Department Care Team (Late st Contact Info) Description 11/14/2022 Telephone Hematology/Oncology at [address] [phone] Colt Ardon, RN Questions Social [...] [facility] are soft formed, not loose He has been taking Metamucil regularly, his wants to make sure that is normal Best call back number [phone] documented in this encounter Plan of Treatment Upcoming Encounters Date Type Department Care Team (Late st Contact Info) Description 09/26/2023 8:30 AM EDT Infusion Hematology Oncology at [address] [address] 10/03/2023 9:00 AM EDT Office Visit Hematology/Oncology at [address] [phone] Adrianne Ramon MD [facility] DR HEMATOLOGY [place] [address] Yael Merlos, KOSHER BUTCHER [facility] DR [place] [address] 10/03/2023 9:30 AM EDT Infusion Hematology Oncology at [address] [phone] 10/10/2023 8:30 AM EDT Infusion Hematology Oncology at [address] [phone] 10/10/2023 2:45 PM EDT Appointment XRay at [address] [place] [address] Micha Givens Jr., MD [facility] DR [place] [address] 10/10/2023 3:00 PM EDT Appointment Non-[place] [address] 10/10/2023 3:30 PM EDT Appointment [place] [address] 10/11/2023 8:30 AM EDT Infusion Hematology Oncology at [address] [phone] documented as of this encounter Visit Diagnoses Not on filedocumented in this encounter Care Teams Stamping Machine Operator Relationship Specialty Start Date End Date Frederick Meade MD [address] [place] [address] [address] [place] [address] PCP - General Family Medicine 11/29/17 documented as of this encounter
--- OUTSIDE RECORDS SUMMARY | 2023-09-26 02:49 | XMS_ITS | Encounter Summary ---
Author Organization [facility] [place] [address] Care Team Providers Care Applications Support Lead Name Role Phone Frederick Meade MD Primary Care Provider [phone] [phone] Encounter Details Date Type Department Care Team (Late st Contact Info) Description 10/20/2022 Telephone Hematology/Oncology at [address] [phone] Maeve Nicole, RN Social History [...] Education provided: SEE ABOVE Plan: Reinforced to patient/care-schedule analyst to call facility 11/09 with any new/worsening signs and symptoms orconcerns or questions. Phone number provided. Pt verbalized understanding and is in agreement with plan. documented in this encounter Plan of Treatment Upcoming Encounters Date Type Department Care Team (Late st Contact Info) Description 09/26/2023 8:30 AM EDT Infusion Hematology Oncology at [address] [phone] 10/03/2023 9:00 AM EDT Office Visit Hematology/Oncology at [address] [address] Adrianne Ramon MD [facility] HEMATOLOGY [place] [address] Yael Merlos APRN [facility] HEMATOLOGY [place] [address] 10/03/2023 9:30 AM EDT Infusion Hematology Oncology at [address] [phone] 10/10/2023 8:30 AM EDT Infusion Hematology Oncology at [address] [address] 10/10/2023 2:45 PM EDT Appointment XRay at [address] [place] [phone] Micha Givens Jr., MD [facility] HEMATOLOGY [place] [address] 10/10/2023 3:00 PM EDT Appointment Non-[place] [address] 10/10/2023 3:30 PM EDT [place] [address] 10/11/2023 8:30 AM EDT Infusion Hematology Oncology at [address] [address] documented as of this encounter Visit Diagnoses Not on filedocumented in this encounter Care Teams Applications Support Lead Relationship Specialty Start Date End Date Frederick Meade MD [address] [place] [address] PCP - General Family Medicine 11/29/17 documented as of this encounter
--- OUTSIDE RECORDS SUMMARY | 2023-09-26 02:49 | XMS_ITS | Encounter Summary ---
Author Organization [facility] [place] [address] Care Team Providers Care Wax Pourer Name Role Phone Frederick Meade MD Primary Care Provider [phone] Encounter Details Date Type Department Care Team (Late st Contact Info) Description 11/15/2022 12:30 PM EDT Office Visit Hematology/Oncology at [address] [phone] Adrianne Ramon MD [facility] DR HEMATOLOGY [place] [address] Yael Merlos APRN [facility] [address] HEMAT[place] [address] Diffuse large B-cell lymphoma of lymph nodes [...] sent him to the emergency room. Polly Orellana RN, called with report. We will plan [...] AM EDT Infusion Hematology Oncology at [address] [address] 10/03/2023 9:00 AM EDT Office Visit Hematology/Oncology at [address] [address] Adrianne Ramon MD [facility] HEMATOLOGY [place] [address] Yael Merlos APRN [facility] HEMATOLOGY [place] [address] 10/03/2023 9:30 AM EDT Infusion Hematology Oncology at [address] [address] 10/10/2023 8:30 AM EDT Infusion Hematology Oncology at [address] [address] 10/10/2023 2:45 PM EDT Appointment XRay at [address] [place] [address] Micha Givens Jr., MD [facility] HEMATOLOGY [place] [address] 10/10/2023 3:00 PM EDT Appointment Non-[place] [address] 10/10/2023 3:30 PM EDT Appointment [facility] [place] [address] 10/11/2023 8:30 AM EDT Infusion Hematology Oncology at [address] [address] documented as of this encounter Procedures Procedure Name Priority Date/Time Associated Diagnosis Comments CBC (WITH DIFF) Routine 11/15/2022 COMPREHENSIVE METABOLIC PANEL Routine 11/15/2022 documented in this encounter Results * Comprehensive metabolic panel (non-fasting) (11/15/2022) Glucose 241 Creatinine 1.1 Sodium 131 Potassium 3.0 Bilirubin, Total 0.4 Aspartate Aminotransferase 7 Alanine Aminotransferase 25 Blood 11/15/2022 Historical Provider CHEMISTRY ORDERAB LES * CBC (with Diff) (11/15/2022) White Blood Cell 6.41 Hemoglobin 9.7 Hematocrit 28.6 Platelet 154 ANC 5.32 Blood 11/15/2022 Historical Provider HEMATOLOGY ORDERA BLES documented in this encounter Visit Diagnoses Diagnosis Diffuse large B-cell lymphoma of lymph nodes of multiple regions documented in this encounter Care Teams Wax Pourer Relationship Specialty Start Date End Date Frederick Meade MD [address] [place] [address] PCP - General Family Medicine 11/29/17 documented as of this encounter
--- OUTSIDE RECORDS SUMMARY | 2023-09-26 02:49 | XMS_ITS | Encounter Summary ---
Author Organization [facility] [place] [address] Care Team Providers Care Pyrotechnic Assembler Name Role Phone Frederick Meade MD Primary Care Provider [phone] [phone] Reason for Visit * Reason Comments Follow-up Encounter Details Date Type Department Care Team (Late st Contact Info) Description 11/22/2022 11:30 AM EDT Office Visit Hematology/Oncology at [address] [address] Adrianne Ramon MD [facility] [address] [place] [address] Yael Merlos, TRANSIT COACH OPERATOR [facility] [address] [place] [address] Diffuse large B-cell lymphoma of lymph nodes [...] - 11/22/2022 11:30 AM EDT Hematology Clinic [facility] [place] [address] HEMATOLOGY PATIENT EVALUATION Patient Active Problem List [...] [facility] and when to [facility]. No beds so sent to [facility] for [address] CAP, MRI,and [...] - unclear cause. - last COLO at [facility] was 01/17/2012. INTERIM HISTORY OF PRESENT [...] has been trying to work through the foster care therapist trying to obtain a supply to complete [...] and needle of cervical LN. FISH from [place] No MYCrearrangement and no fusion of MYC [...] only 1 biologic. Son Cheo Freire. Enjoys [email or web address], [employer], [employer], [employer]. [employer]. 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 Not a . ETOH: 1-3 beers per week Smoking: Quit 1985. Approximately 63-ddfq-cdtm history Vaping or electronic cigarettes: denies Chewing [...] is a delightful 72-year old male in [facility]. He is accompanied to the clinic by [...] and BCL-2 protein (Double Expressor.) Flow cytometry ([id number]) supports this interpretation. FISH from [place] No MYC rearrangement and no fusion of MYC and IGH was observed, CD3 (SP7, Thermo Scientific) Background T-cells CD20 (L26, [place]) diffusely positive in Neoplastic B-cells PAX-5 (1EW, Leica) diffusely positive in Neoplastic B-cells CD10 (SP67, [place]) Negative BCL-6 (G/191E/A8, [place]) Positive MUM-1 (MUM1p, Dako) Positive Myc (Y69, Abcam) Positive BCL-2 Oncoprotein (124, [place]) Positive Ki67 (MIB-1) (K2, Leica) Greater than 95% of cells in cycle Cyclin D1(SP4-R, [place]) Negative SAPPHIRE JOSE ([id number], Leica) Negative. DIAGNOSTICS: 11/06/22 ECHO after C#1 [...] undergo investigation with ultrasound. CT CAP at [facility], report and images have been requested. [...] 2 tabs per day. Stools have been reading assistant recently. No COLO in last 10 [...] and counseling as appropriate. Yael Merlos, MSN, TRANSIT COACH OPERATOR Nurse practitioner Section of Hematology/Oncology Copy Frederick Meade MD documented in this encounter Plan of Treatment Upcoming Encounters Date Type Department Care Team (Late st Contact Info) Description 09/26/2023 8:30 AM EDT Infusion Hematology Oncology at [address] [address] 10/03/2023 9:00 AM EDT Office Visit Hematology/Oncology at [address] [address] Adrianne Ramon MD [facility] [address] [place] [address] Yael Merlos APRN [facility] [place] [address] 10/03/2023 9:30 AM EDT Infusion Hematology Oncology at [address] [address] 10/10/2023 8:30 AM EDT Infusion Hematology Oncology at [address] [address] 10/10/2023 2:45 PM EDT Appointment XRay at [address] [place] [address] Micha Givens Jr., MD [facility] HEMATOLOGY [place] [address] 10/10/2023 3:00 PM EDT Appointment Non-[place]vasive [place] [address] 10/10/2023 3:30 PM EDT [place] [address] 10/11/2023 8:30 AM EDT Infusion Hematology Oncology at [address] [address] documented as of this encounter Procedures Procedure Name Priority Date/Time Associated Diagnosis Comments CBC (WITH DIFF) Routine 11/22/2022 COMPREHENSIVE METABOLIC PANEL Routine 11/22/2022 documented in this encounter Results * (ABNORMAL) CBC (with Diff) (11/22/2022) White Blood Cell 15.41(H) Red Blood Cell 2.90(L) Hemoglobin 8.8(L) Hematocrit 27.0(L) Platelet 220 ANC 12.94(H) Blood 11/22/2022 Historical Provider HEMATOLOGY ORDERA BLES * (ABNORMAL) Comprehensive metabolic panel (non-fasting) (11/22/2022) Glucose 160(H) Blood Urea Nitrogen 8 Creatinine 0.9 Sodium 134(L) Potassium 3.7 Calcium 8.3 Protein, Total 5.2(L) Albumin 2.0(L) Bilirubin, Total 0.1(L) Alkaline Phosphatase 139(H) Aspartate Aminotransferase 20 Alanine Aminotransferase 17 Blood 11/22/2022 Historical Provider CHEMISTRY ORDERAB LES documented in this encounter Visit Diagnoses Diagnosis Diffuse large B-cell lymphoma of lymph nodes of multiple regions Iron deficiency anemia, unspecified iron deficiency anemia type Pneumonia due to infectious organism, unspecified laterality, unspecified part of lung documented in this encounter Care Teams Pyrotechnic Assembler Relationship Specialty Start Date End Date Frederick Meade MD [address] [place] [address] PCP - General Family Medicine 11/29/17 documented as of this encounter
--- OUTSIDE RECORDS SUMMARY | 2023-09-26 02:49 | XMS_ITS | Encounter Summary ---
Author Organization [facility] Address [facility] [place] [address] Care Team Providers Care Racker Octave Board Name Role Phone Frederick Meade MD Primary Care Provider [phone] Reason for Visit * Reason Onset Date Comments Follow-up 10/26/2022 Encounter Details Date Type Department Care Team (Late st Contact Info) Description 10/26/2022 Telephone Hematology/Oncology at [address] [address] Tania Rosales, RN Follow-up Social [...] than yesterday. He is still admitted at [facility] and relays that the care plan is to keep him admitted until his WBC go up. Per the [facility] progress note, the goal is for an ANC greater than 500 and he is stable, labs this morning his ANC was 90. His next FUV here is 11/08. Cheo was thankful for the call. documented in this encounter Plan of Treatment Upcoming Encounters Date Type Department Care Team (Late st Contact Info) Description 09/26/2023 8:30 AM EDT Infusion Hematology Oncology at [address] [address] 10/03/2023 9:00 AM EDT Office Visit Hematology/Oncology at [address] [phone] Adrianne Ramon MD [facility] [place] [address] Yael Merlos, RECORDS MANAGEMENT MANAGER [facility] [place] [address] 10/03/2023 9:30 AM EDT Infusion Hematology Oncology at [address] [address] 10/10/2023 8:30 AM EDT Infusion Hematology Oncology at [address] [address] 10/10/2023 2:45 PM EDT Appointment XRay at [address] [place] [address] Micha Givens Jr., MD [facility] [place] [address] 10/10/2023 3:00 PM EDT Appointment Non[place] [address] 10/10/2023 3:30 PM EDT Appointment [place] [address] 10/11/2023 8:30 AM EDT Infusion Hematology Oncology at [address] [phone] documented as of this encounter Visit Diagnoses Not on filedocumented in this encounter Care Teams Racker Octave Board Relationship Specialty Start Date End Date Frederick Meade MD [address] [place] [address] PCP - General Family Medicine 11/29/17 documented as of this encounter
--- OUTSIDE RECORDS SUMMARY | 2023-09-26 02:49 | XMS_ITS | Encounter Summary ---
Author Organization [facility] [place] [address] Care Team Providers Care Manager Retail Store Name Role Phone Frederick Meade MD Primary Care Provider [phone] [phone] Encounter Details Date Type Department Care Team [...] AM EDT Infusion Hematology Oncology at [address] [address] 10/03/2023 9:00 AM EDT Office Visit Hematology/Oncology at [address] [address] Adrianne Ramon MD [facility] HEMATOLOGY [place] [address] Yael Merlos APRN [facility] HEMATOLOGY [place] [address] 10/03/2023 9:30 AM EDT Infusion Hematology Oncology at [address] [address] 10/10/2023 8:30 AM EDT Infusion Hematology Oncology at [address] [address] 10/10/2023 2:45 PM EDT Appointment XRay at [address] [place] [phone] Micha Givens Jr., MD [facility] HEMATOLOGY [place] [address] 10/10/2023 3:00 PM EDT Appointment Non-Invasive [place] [address] 10/10/2023 3:30 PM EDT Appointment [place] [address] 10/11/2023 8:30 AM EDT Infusion Hematology Oncology at [address] [address] documented as of this encounter Visit Diagnoses Not on filedocumented in this encounter Care Teams Manager Retail Store Relationship Specialty Start Date End Date Frederick Meade MD [address] [place] [address] PCP - General Family Medicine 11/29/17 documented as of this encounter
--- OUTSIDE RECORDS SUMMARY | 2023-09-26 02:49 | XMS_ITS | Encounter Summary ---
[place] [address] Care Team Providers Care Workforce Planning Analyst Name Role Phone Frederick Meade MD Primary Care Provider [phone] [phone] Reason for Referral * Diagnostic Test (Routine) - Closed Specialty Diagnoses / Procedures Referred By Contac t Referred To Contact Cardiology Diagnoses Diffuse large B-cell lymphoma of lymph nodes of multiple regions Procedures Echocardiogram Transthoracic Adrianne Mera MD [facility] DR HEMATOLOGY [place] [address] [facility] [place] [address] Referral ID Status Reason Start Date Expiration Date V isits Requested Visits Authorized [id number] Closed Specialty Service Requested 10/12/2022 10/12/2023 1 1 Reason for Visit * Diagnostic Test (Routine) - Closed Specialty Diagnoses / Procedures Referred By Contac t Referred To Contact Cardiology Diagnoses Diffuse large B-cell lymphoma of lymph nodes of multiple regions Procedures Echocardiogram Transthoracic Adrianne Mear MD [facility] DR [place] [address] [facility] [place] [address] Referral ID Status Reason Start Date Expiration Date V isits Requested Visits Authorized [id number] Closed Specialty Service Requested 10/12/2022 10/12/2023 1 1 Encounter Details Date Type Department Care Team (Late st Contact Info) Description 11/06/2022 10:45 AM EDT - 11/06/2022 11:59 PM EDT Hospital Encounter Non-Invasive Cardiology Lab [facility] [place] [address] Adrianne Mera MD [facility] DR [place] [address] Diffuse large B-cell lymphoma of lymph nodes [...] Chewable Take 325 mg by mouth daily. colchicine (COLCRYS) 0.6 mg Tablet Take 0.6 mg by mouth daily as needed (for Gout flare). Ibuprofen 200 mg Capsule Take by mouth 4 times daily as needed. Reported on 05/24/2016 prochlorperazine (Compazine) 10 mg tablet Take 1 [...] AM EDT Infusion Hematology Oncology at [address] [address] 10/03/2023 9:00 AM EDT Office Visit Hematology/Oncology at [address] [address] Adrianne Mera MD [facility] DR HEMATOLOGY [place] [address] Yael Merlos APRN [facility] DR [place] [address] 10/03/2023 9:30 AM EDT Infusion Hematology Oncology at [address] [address] 10/10/2023 8:30 AM EDT Infusion Hematology Oncology at [address] [address] 10/10/2023 2:45 PM EDT Appointment XRay at [address] [place] [place] [address] Micha Givens Jr., MD [facility] DR HEMATOLOG[place] [address] 10/10/2023 3:00 PM EDT Appointment Non-[place] [address] 10/10/2023 3:30 PM EDT [place]ointment [place] [address] 10/11/2023 8:30 AM EDT Infusion Hematology Oncology at [address] [address] documented as of this encounter Procedures Procedure [...] Report Name: CHEO MORFIN ? Study Date: 11/06/2022 11:11 AMBP: 154/72 mmHg ? Patient Location: 4A : 1950 ? Height: 169 cm ? Account: [id number] Age: 72 yrs ? Weight: 93 kg Gender: Male ?BSA: 2.0 m2 Ordering Physician: ADRIANNE MERA Referring Physician: ADRIANNE MERA Performed By: SHAHANA Fernando Reason For Study: Lymphoma Exam Location: [facility]. Interpretation Summary LV systolic function appears to be low-normal. LV ejection fraction appears to be 52%. Global longitudinal strain is measured at -16.6 %. (GE). There are no segmental wall motion abnormalities. Normal right ventricle. No significant valvular abnormalities. Trivial pericardial effusion. On direct comparison to prior echo dated 10/12/2022, the LV function has slightly improved. Procedure Limited - 324[address]. Left ventricular strain. Satisfactory quality. There is [...] Echocardiogram Report Name: CHEO MORFIN Study Date: 1:11 AMBP: 154/72 mmHg Patient Location: : 1950 Height: 169 cm Account: [id number] Age: 72 yrs Weight: 93 kg Gender: Male BSA: 2.0 m2 Ordering Physician: ADRIANNE MERA Referring Physician: ADRIANNE MERA Performed By: SHAHANA Fernando Reason For Study: Lymphoma Exam Location: [facility]. Interpretation Summary LV systolic function appears to be low-normal. LV ejection fractionappears to be 52%. Global longitudinal strain is measured at -16.6 %. (GE). There areno segmental wall motion abnormalities. Normal right ventricle. No significant valvular abnormalities. Trivial pericardial effusion. On direct comparison to prior echo dated 10/12/2022, the LV function hasslightly improved. Procedure Limited - 32010. Left ventricular strain. Satisfactory quality. There isnormal [...] regions documented in this encounter Care Teams Workforce Planning Analyst Relationship Specialty Start Date End Date Frederick Meade MD [address] [place] [address] PCP - General Family Medicine 11/29/17 documented as of this encounter
--- OUTSIDE RECORDS SUMMARY | 2023-09-26 02:49 | XMS_ITS | Encounter Summary ---
[place] [address] Care Team Providers Care Publishing Editor Name Role Phone Frederick Meade MD Primary Care Provider [phone] [phone] Reason for Referral * Diagnostic Test (Routine) - Closed Specialty Diagnoses / Procedures Referred By Contac t Referred To Contact Radiology Diagnoses Diffuse large B-cell lymphoma of lymph nodes of multiple regions Procedures NM PET CT Standard Plus Extremities and Head Yael Merlos APRN [facility] [place] [address] [place] [address] Referral ID Status Reason Start Date Expiration Date V isits Requested Visits Authorized [id number] Closed Specialty Service Requested 12/20/2022 06/19/2024 1 1 Reason for Visit * Reason Comments Follow-up Chemotherapy Encounter Details Date Type Department Care Team (Late st Contact Info) Description 12/20/2022 8:30 AM EDT Office Visit Hematology/Oncology at [address] [address] Adrianne Ramon MD [facility] H[place]ATOLOGY [place] [address] Yael Merlos APRN [facility] [place] [address] Diffuse large B-cell lymphoma of lymph nodes [...] this encounter Progress Notes * Yael Merlos, FEATHER BONER - 12/20/2022 8:30 AM EDT Hematology Clinic [facility] [place] [address] HEMATOLOGY PATIENT EVALUATION Patient Active Problem List [...] ~2 weeks ago saw [facility] and when to [facility]. No beds so sent to [facility] for [address] CAP, MRI,and [...] days with nice response. Pathology from [facility] reports large B-cell lymphoma. Double expresser. FISH for translocations are pending. Tongue swelling. No wt loss. Eating and drinking OK. No fevers, infections, No NS. Pain in neck.Prednisone 60mg daily X 7 days. I feel great on prednisone last day of prednisone is today Took iron supplements per PCP - unclear cause. - last COLO at [facility] was 01/17/2012. INTERIM HISTORY [...] and needle of cervical LN. FISH from [place] No MYCrearrangement and no fusion of MYC [...] only 1 biologic. Son Cheo Freire. Enjoys [employer]it, movies, race car, cards. [employer]. 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 Not a . ETOH: 1-3 beers per week Smoking: Quit 1985. Approximately 44-wstu-sffq history Vaping or electronic cigarettes: denies Chewing [...] is a delightful 72-year old male in [facility]. He is accompanied to the [...] and BCL-2 protein (Double Expressor.) Flow cytometry ([id number]) supports this interpretation. FISH from [place] No MYC rearrangement and no fusion of MYC and IGH was observed, CD3 (SP7, Thermo Scientific) Background T-cells CD20 (L26, [place]) diffusely positive in Neoplastic B-cells PAX-5 (1EW, Leica) diffusely positive in Neoplastic B-cells CD10 (SP67, [place]) Negative BCL-6 (G/191E/A8, [place]) Positive MUM-1 (MUM1p, Dako) Positive Myc (Y69, Abcam) Positive BCL-2 Oncoprotein (124, [place]) Positive Ki67 (MIB-1) (K2, Leica) Greater than 95% of cells in cycle Cyclin D1(SP4-R, [place]) Negative SAPPHIRE JOSE ([id number], Leica) Negative. DIAGNOSTICS: 11/28/22 ECHO after C#2 [...] Jan 2023 - booked for 01/25/23 at [facility] Recommend COVID vaccine though he is aware that he may not have a robust response due to ongoing chemotherapy with B-cell depletion. He has already received influenza vaccine. I discussed all of the above with the patient and all of his questions were answered. Support and counseling as appropriate. Yael Merlos, MSN, FEATHER BONER Nurse practitioner Section of Hematology Copy Frederick Meade MD documented in this encounter Plan of Treatment Upcoming Encounters Date Type Department Care Team (Late st Contact Info) Description 09/26/2023 8:30 AM EDT Infusion Hematology Oncology at [address] [address] 10/03/2023 9:00 AM EDT Office Visit Hematology/Oncology at [address] [address] Adrianne Ramon MD [facility] H[place]ATOLOGY [place] [address] Yael Merlos APRN [facility] [place]Y [place] [address] 10/03/2023 9:30 AM EDT Infusion Hematology Oncology at [address] [address] 10/10/2023 8:30 AM EDT Infusion Hematology Oncology at [address] [address] 10/10/2023 2:45 PM EDT Appointment XRay at [address] [place] [address] Micha Givens Jr., MD [facility] HEMATOLOGY [place] [address] 10/10/2023 3:00 PM EDT Appointment Non-[place]vasive [place] [address] 10/10/2023 3:30 PM EDT Appointment [place] [address] 10/11/2023 8:30 AM EDT Infusion Hematology Oncology at [address] [address] documented as of this encounter Procedures Procedure Name Priority Date/Time Associated Diagnosis Comments CBC (WITH DIFF) Routine 12/20/2022 COMPREHENSIVE METABOLIC PANEL Routine 12/20/2022 documented in this encounter Results [...] who have questions please contact the health live in caregiver that requested your imaging first. ? Electronically signed by: Fletcher Duckworth MD, [facility] ([phone]), at 01/05/2023 9:50 AM Narrative 01/05/2023 9:50 AM EST EXAMINATION: NM PET CT STANDARD PLUS EXTREMITIES AND HEAD CLINICAL HISTORY: Hematologic malignancy, assess treatment response Non-Hodgkin lymphoma TECHNIQUE: Procedure: Following IV injection of 00-zecsil-6-deoxyglucose (FDG) a standard uptake of approximately 60 [...] lymphoma TECHNIQUE: Procedure: Following IV injection of 55-nrrnti-4-deoxyglucose(FDG) a standard uptake of approximately 60 minutes, [...] of the left upper lobe (image 131 [id number]). These foci are new since the prior [...] patients who have questions please contactthe health live in caregiver that requested your imaging first. Electronically signed by: Fletcher Duckworth MD, [facility]([phone]), at 01/05/2023 9:50 AM Yael Merlos FEATHER BONER IMG PET ORDERABLES * Comprehensive metabolic panel (non-fasting) (12/20/2022) Pathologist [facility] Creatinine 0.9 Potassium 3.4 Bilirubin, Total 0.2 Aspartate Aminotransferase 15 Alanine Aminotransferase 19 Lactate Dehydrogenase 174 Iron 33 TIBC 197 Iron Saturation 17 Ferritin 279 Blood 12/20/2022 Historical Provider CHEMISTRY ORDERAB LES * CBC (with Diff) (12/20/2022) Pathologist [facility] White Blood Cell 8 Hemoglobin 9.8 Hematocrit 30.3 Platelet 264 ANC 5.61 Blood 12/20/2022 Historical Provider MD HEMATOLOGY ORDERA BLES documented in this encounter Visit Diagnoses Diagnosis 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
--- OUTSIDE RECORDS SUMMARY | 2023-09-26 02:49 | XMS_ITS | Encounter Summary ---
Author Organization [facility]ly [facility] Address [facility] [place] [address] Care Team Providers Care Manager Revenue Name Role Phone Frederick Meade MD Primary Care Provider +1 -[phone] Reason for Visit * Reason Onset Date Comments Follow-up 10/25/2022 Pt admitted to [facility] Encounter Details Date Type Department Care Team (Late st Contact Info) Description 10/25/2022 Telephone Hematology/Oncology at [address] [address] Colt Ardon RN Follow-up (Pt admitted to [facility] ) Social History Tobacco Use Types Packs/Day [...] to report pt is getting admitted to [facility] with dehydration and low WBC. He did end up having a bowel movement ?last night but this morning couldn't urinate and had abdominal pressure again. They went to [facility] ED. Dr Mcbride at [facility] called and is admitted him, stating hisANC was 20. Pt had cycle 1 RCHOP with Neulasta On-pro on 10/18 for his DLBCL. Team made aware. Will check in on pt's disposition tomorrow. documented in this encounter Plan of Treatment Upcoming Encounters Date Type Department Care Team (Late st Contact Info) Description 09/26/2023 8:30 AM EDT Infusion Hematology Oncology at [address] [address] 10/03/2023 9:00 AM EDT Office Visit Hematology/Oncology at [address] [address] Adrianne Ramon MD [facility] DR HEMATOLOGY [place] [address] Yael Merlos APRN [facility] HEMATOLOGY AND [place] [address] 10/03/2023 9:30 AM EDT Infusion Hematology Oncology at [address] [address] 10/10/2023 8:30 AM EDT Infusion Hematology Oncology at [address] [address] 10/10/2023 2:45 PM EDT Appointment XRay at [address] [place] [address] Micha Givens Jr., MD [facility] HEMATOLOGY AND [place] [address] 10/10/2023 3:00 PM EDT Appointment Non-Invasive [place] [address] 10/10/2023 3:30 PM EDT Appointment [place] [address] 10/11/2023 8:30 AM EDT Infusion Hematology Oncology at [address] [address] documented as of this encounter Visit Diagnoses Not on filedocumented in this encounter Care Teams Manager Revenue Relationship Specialty Start Date End Date Frederick Meade MD [address] [place] [address] PCP - General Family Medicine 11/29/17 documented as of this encounter
--- OUTSIDE RECORDS SUMMARY | 2023-09-26 02:49 | XMS_ITS | Encounter Summary ---
Author Organization [facility] [place] [address] Care Team Providers Care Historic Interpreter Name Role Phone Frederick Meade MD Primary Care Provider +1 -[phone] Encounter Details Date Type Department Care Team [...] AM EDT Infusion Hematology Oncology at [address] [address] 10/03/2023 9:00 AM EDT Office Visit Hematology/Oncology at [address] [address] Adrianne Ramon MD [facility] HEMATOLOGY [place] [address] Yael Merlos APRN [facility] [place] [address] 10/03/2023 9:30 AM EDT Infusion Hematology Oncology at [address] [address] 10/10/2023 8:30 AM EDT Infusion Hematology Oncology at [address] [address] 10/10/2023 2:45 PM EDT Appointment XRay at [address] [place] [address] Micha Givens Jr., MD [facility] HEMATOLOGY [place] [address] 10/10/2023 3:00 PM EDT Appointment Non-[place] [address] 10/10/2023 3:30 PM EDT Appointment [place] [address] 10/11/2023 8:30 AM EDT Infusion Hematology Oncology at [address] [address] documented as of this encounter Visit Diagnoses Not on filedocumented in this encounter Care Teams Historic Interpreter Relationship Specialty Start Date End Date Frederick Meade MD [address] [place] [address] PCP - General Family Medicine 11/29/17 documented as of this encounter
--- OUTSIDE RECORDS SUMMARY | 2023-09-26 02:49 | XMS_ITS | Encounter Summary ---
Author Organization [facility] [place] [address] Care Team Providers Care Meteorological Aide Name Role Phone Frederick Meade MD Primary Care Provider +1 -[phone] Encounter Details Date Type Department Care Team (Late st Contact Info) Description 11/16/2022 Telephone Hematology/Oncology at [address] [address] Brenda Priest, RN Social History [...] Call: Received call from OSCAR Marcelo at [facility] notifying us that patient was admitted [facility] yesterday and is positive for C-Diff. Dr. Ramon and Yael Merlos APRN updated via this note. documented in this encounter Plan of Treatment Upcoming Encounters Date Type Department Care Team (Late st Contact Info) Description 09/26/2023 8:30 AM EDT Infusion Hematology Oncology at [address] [address] 10/03/2023 9:00 AM EDT Office Visit Hematology/Oncology at [address] [address] Adrianne Ramon MD [facility] HEMATOLOGY [place] [address] Yael Merlos, SPANISH INSTRUCTOR [facility] HEMATOLOGY [place] [address] 10/03/2023 9:30 AM EDT Infusion Hematology Oncology at [address] [address] 10/10/2023 8:30 AM EDT Infusion Hematology Oncology at [address] [address] 10/10/2023 2:45 PM EDT Appointment XRay at [address] [place] [address] Micha Givens Jr., MD [facility] DR [place] [address] 10/10/2023 3:00 PM EDT Appointment Non-[place] [address] 10/10/2023 3:30 PM EDT Appointment [place] [address] 10/11/2023 8:30 AM EDT Infusion Hematology Oncology at [address] [address] documented as of this encounter Visit Diagnoses Not on filedocumented in this encounter Care Teams Meteorological Aide Relationship Specialty Start Date End Date Frederick Meade MD [address] [place] [address] PCP - General Family Medicine 11/29/17 documented as of this encounter
--- OUTSIDE RECORDS SUMMARY | 2023-09-26 02:49 | XMS_ITS | Encounter Summary ---
Author Organization [facility] [address] Care Team Providers Care Heavy Forger Helper Name Role Phone Frederick Meade MD Primary Care Provider +1 -[phone] Encounter Details Date Type Department Care Team [...] AM EDT Infusion Hematology Oncology at [address] [address] 10/03/2023 9:00 AM EDT Office Visit Hematology/Oncology at [address] [address] Adrianne Ramon MD [facility] HEMATOLOGY [place] [address] Yeal Merlos APRN [facility] [place] [address] 10/03/2023 9:30 AM EDT Infusion Hematology Oncology at [address] [address] 10/10/2023 8:30 AM EDT Infusion Hematology Oncology at [address] [address] 10/10/2023 2:45 PM EDT Appointment XRay at [address] [place] [address] Micha Givens Jr., MD [facility] HEMATOLOGY [place] [address] 10/10/2023 3:00 PM EDT Appointment Non[place] [address] 10/10/2023 3:30 PM EDT Appointment [place] [address] 10/11/2023 8:30 AM EDT Infusion Hematology Oncology at [address] [address] documented as of this encounter Visit Diagnoses Not on filedocumented in this encounter Care Teams Heavy Forger Helper Relationship Specialty Start Date End Date Frederick Meade MD [address] [place] [address] PCP - General Family Medicine 11/29/17 documented as of this encounter
--- OUTSIDE RECORDS SUMMARY | 2023-09-26 02:49 | XMS_ITS | Encounter Summary ---
Author Organization [facility] [place] [address] Care Team Providers Care Crocheter Name Role Phone Frederick Meade MD Primary Care Provider +1 -[phone] Encounter Details Date Type Department Care Team [...] AM EDT Infusion Hematology Oncology at [address] [address] 10/03/2023 9:00 AM EDT Office Visit Hematology/Oncology at [address] [address] Adrianne Ramon MD [facility] HEMATOLOGY [place] [address] Yael Merlos APRN [facility] HEMATOLOGY [place] [address] 10/03/2023 9:30 AM EDT Infusion Hematology Oncology at [address] [address] 10/10/2023 8:30 AM EDT Infusion Hematology Oncology at [address] [address] 10/10/2023 2:45 PM EDT Appointment XRay at [address] [place] [address] Micha Givens Jr., MD [facility] HEMATOLOGY [place] [address] 10/10/2023 3:00 PM EDT Appointment Non-[place] [address] 10/10/2023 3:30 PM EDT Appointment [place] [address] 10/11/2023 8:30 AM EDT Infusion Hematology Oncology at [address] [address] documented as of this encounter Visit Diagnoses Not on filedocumented in this encounter Care Teams Crocheter Relationship Specialty Start Date End Date Frederick Meade MD [address] [place] [address] PCP - General Family Medicine 11/29/17 documented as of this encounter
--- OUTSIDE RECORDS SUMMARY | 2023-09-26 02:50 | XMS_ITS | Encounter Summary ---
Author Organization [facility] [place] [address] Care Team Providers Care Story Analyst Name Role Phone Frederick Meade MD Primary Care Provider +1 -[phone] Reason for Visit * Reason Comments Chemotherapy Teaching Encounter Details Date Type Department Care Team (Late st Contact Info) Description 10/18/2022 8:00 AM EDT Office Visit Hematology/Oncology at [address] [address] Adrianne Ramon MD [facility] DR HEMATOLOGY [place] [address] Yael Merlos, PROCEDURE WRITER [facility] DR HEMATOLOGY [place] [address] Diffuse large B-cell lymphoma of lymph nodes [...] this encounter Progress Notes * Yael Merlos, PROCEDURE WRITER - 10/18/2022 8:00 AM EDT PATIENT ID: [...] infection, cataracts and osteoporosis. Medications: please pickle processor the following prescriptions before you start treatment [...] further questions or concerns. Yael Merlos, MSN, PROCEDURE WRITER Nurse Practitioner Section of Hematology [facility] Cc: Frederick Meade MD documented in this encounter Plan of Treatment Upcoming Encounters Date Type Department Care Team (Late st Contact Info) Description 09/26/2023 8:30 AM EDT Infusion Hematology Oncology at [address] [address] 10/03/2023 9:00 AM EDT Office Visit Hematology/Oncology at [address] [address] Adrianne Ramon MD [facility] HEMATOLOGY [place] [address] Yael Merlos APRN [facility] HEMATOLOGY [place] [address] 10/03/2023 9:30 AM EDT Infusion Hematology Oncology at [address] [address] 10/10/2023 8:30 AM EDT Infusion Hematology Oncology at [address] [address] 10/10/2023 2:45 PM EDT Appointment XRay at [address] [place] [address] Micha Givens Jr., MD [facility] HEMATOLOGY [place] [address] 10/10/2023 3:00 PM EDT Appointment Non-[place]vasive [place] [address] 10/10/2023 3:30 PM EDT Appointment [place] [address] 10/11/2023 8:30 AM EDT Infusion Hematology Oncology at [address] [address] documented as of this encounter Visit Diagnoses Diagnosis Diffuse large B-cell lymphoma of lymph nodes of multiple regions documented in this encounter Care Teams Story Analyst Relationship Specialty Start Date End Date Frederick Meade MD [address] [place] [address] PCP - General Family Medicine 11/29/17 documented as of this encounter
--- OUTSIDE RECORDS SUMMARY | 2023-09-26 02:50 | XMS_ITS | Encounter Summary ---
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 regions Procedures NM PET CT Standard Plus Extremities and Head Adrianne Ramon MD [facility] DR HEMATOLOGY [place] [address] [place] [address] Referral ID Status Reason Start Date Expiration Date V isits Requested Visits Authorized [id number] Closed Specialty Service Requested 10/10/2022 04/12/2024 1 [...] Plus Extremities and Head Adrianne Ramon MD [facility] DR HEMATOLOGY [place] [address] [place] [address] Referral ID Status Reason Start Date Expiration Date V isits Requested Visits Authorized [id number] Closed Specialty Service Requested 10/10/2022 04/12/2024 1 2 Encounter Details Date Type Department Care Team (Late st Contact Info) Description 10/12/2022 10:26 AM EDT - 10/12/2022 11:59 PM EDT Hospital Encounter [place] [address] Adrianne Ramon MD [facility] DR HEMATOLOGY [place] [address] Non-Hodgkin lymphoma of lymph nodes [...] times daily as needed. Reported on 05/24/2016 predniSONE (Deltasone) 20 mg tablet Take 5 [...] AM EDT Infusion Hematology Oncology at [address] [address] 10/03/2023 9:00 AM EDT Office Visit Hematology/Oncology at [address] [address] Adrianne Ramon MD [facility] HEMATOLOGY [place] [address] Yael Merlos APRN [facility] HEMATOLOGY [place] [address] 10/03/2023 9:30 AM EDT Infusion Hematology Oncology at [address] [address] 10/10/2023 8:30 AM EDT Infusion Hematology Oncology at [address] [address] 10/10/2023 2:45 PM EDT Appointment XRay at [address] [place] [address] Micha Givens Jr., MD [facility] HEMATOLOGY [place] [address] 10/10/2023 3:00 PM EDT Appointment Non-Invasive [place] [address] 10/10/2023 3:30 PM EDT Appointment [place] [address] 10/11/2023 8:30 AM EDT Infusion Hematology Oncology at [address] [address] documented as of this encounter Procedures Procedure [...] who have questions please contact the health home care manager rn that requested your imaging first. ? Electronically signed by: Rohan Henley MD, [facility] ([phone]), at 10/12/2022 3:23 PM Narrative 10/12/2022 3:23 PM EDT EXAMINATION: NM PET CT STANDARD PLUS EXTREMITIES AND HEAD CLINICAL HISTORY: Non-Hodgkin lymphoma, staging new large B cell lymphoma - involving oropharynx/ cervical. ??staging. TECHNIQUE: Procedure: Following IV injection of 89-huljgs-1-deoxyglucose (FDG) a standard uptake of approximately 60 [...] staging. TECHNIQUE: Procedure: Following IV injection of 16-rfaoja-0-deoxyglucose(FDG) a standard uptake of approximately 60 minutes, [...] patients who have questions please contactthe health home care manager rn that requested your imaging first. Electronically signed by: Rohan Henley MD, [facility]([phone]), at 10/12/2022 3:23 PM Adrianne Ramon MD [...] mCi documented in this encounter Care Teams Charge Manager Relationship Specialty Start Date End Date Frederick Meade MD [address] [place] [address] PCP - General Family Medicine 11/29/17 documented as of this encounter
--- OUTSIDE RECORDS SUMMARY | 2023-09-26 02:50 | XMS_ITS | Encounter Summary ---
Author Organization [facility] [place] [address] Care Team Providers Care Toll Test Worker Name Role Phone Frederick Meade MD Primary Care Provider +1 -[phone] Encounter Details Date Type Department Care Team [...] AM EDT Infusion Hematology Oncology at [address] [address] 10/03/2023 9:00 AM EDT Office Visit Hematology/Oncology at [address] [address] Adrianne Ramon MD [facility] HEMATOLOGY [place] [address] Yael Merlos APRN [facility] [place] [address] 10/03/2023 9:30 AM EDT Infusion Hematology Oncology at [address] [address] 10/10/2023 8:30 AM EDT Infusion Hematology Oncology at [address] [address] 10/10/2023 2:45 PM EDT Appointment XRay at [address] [place] [address] Micha Givens Jr., MD [facility] HEMATOLOGY [place] [address] 10/10/2023 3:00 PM EDT Appointment Non-[place] [address] 10/10/2023 3:30 PM EDT Appointment [place] [address] 10/11/2023 8:30 AM EDT Infusion Hematology Oncology at [address] [address] documented as of this encounter Visit Diagnoses Not on filedocumented in this encounter Care Teams Toll Test Worker Relationship Specialty Start Date End Date Frederick Meade MD [address] [place] [address] PCP - General Family Medicine 11/29/17 documented as of this encounter
--- OUTSIDE RECORDS SUMMARY | 2023-09-26 02:50 | XMS_ITS | Encounter Summary ---
[place] [address] Care Team Providers Care Customer Experience Professional Name Role Phone Frederick Meade MD Primary Care Provider +1 -[phone] Encounter Details Date Type Department Care Team (Late st Contact Info) Description 10/11/2022 Notes [place] [address] James Champion, [facility] [place] [address] Social History Tobacco Use Types Packs/Day Years [...] access for chemotherapy. IR History: None at [facility]. Antiplatelets: Aspirin 81 mg daily. 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 Tobacco Use Smoking status: Former Packs/day: [...] AM EDT Infusion Hematology Oncology at [address] [address] 10/03/2023 9:00 AM EDT Office Visit Hematology/Oncology at [address] [address] Adrianne Ramon MD [facility] DR HEMATOLOGY [place] [address] Yael Merlos, BUILD MASTER [facility] [place] [address] 10/03/2023 9:30 AM EDT Infusion Hematology Oncology at [address] [phone] 10/10/2023 8:30 AM EDT Infusion Hematology Oncology at [address] [address] 10/10/2023 2:45 PM EDT Appointment XRay at [address] [place] [address] Micha Givens Jr., MD [facility] [place] [address] 10/10/2023 3:00 PM EDT Appointment Non-[place]vasive [place] [address] 10/10/2023 3:30 PM EDT Appointment [place] [address] 10/11/2023 8:30 AM EDT Infusion Hematology Oncology at [address] [address] documented as of this encounter Visit Diagnoses Not on filedocumented in this encounter Care Teams Customer Experience Professional Relationship Specialty Start Date End Date Frederick Meade MD [address] [place] [address] PCP - General Family Medicine 11/29/17 documented as of this encounter
--- OUTSIDE RECORDS SUMMARY | 2023-09-26 02:50 | XMS_ITS | Encounter Summary ---
Author Organization [facility] [place] [address] Care Team Providers Care Material Man Name Role Phone Frederick Meade MD Primary Care Provider +1 -[phone] Encounter Details Date Type Department Care Team (Late st Contact Info) Description 10/10/2022 Orders Only [place]ematology [place] [address] Adrianne Ramon MD [facility] DR HEMATOLOGY [place] [address] Non-Hodgkin lymphoma of lymph nodes of multiple [...] AM EDT Infusion Hematology Oncology at [address] [address] 10/03/2023 9:00 AM EDT Office Visit Hematology/Oncology at [address] [address] Adrianne Ramon MD [facility] DR HEMATOLOGY [place] [address] Yael Merlos APRN [facility] DR HEMATOLOGY [place] [address] 10/03/2023 9:30 AM EDT Infusion Hematology Oncology at [address] [address] 10/10/2023 8:30 AM EDT Infusion Hematology Oncology at [address] [address] 10/10/2023 2:45 PM EDT Appointment XRay at [address] [place] [address] Micha Givens Jr., MD [facility] DR [place] [address] 10/10/2023 3:00 PM EDT Appointment Non-[place] [address] 10/10/2023 3:30 PM EDT Appoint[place] [address] 10/11/2023 8:30 AM EDT Infusion Hematology Oncology at [address] [address] documented as of this encounter Visit Diagnoses Diagnosis Non-Hodgkin lymphoma of lymph nodes of multiple regions, unspecified non-Hodgkin lymphoma type documented in this encounter Care Teams Material Man Relationship Specialty Start Date End Date Frederick Meade MD [address] [place] [address] [address] [place] [address] PCP - General Family Medicine 11/29/17 documented as of this encounter
--- OUTSIDE RECORDS SUMMARY | 2023-09-26 02:50 | XMS_ITS | Encounter Summary ---
[place] [address] Care Team Providers Care Provider Relations Representative Name Role Phone Frederick Meade MD Primary Care Provider [phone] [phone] Encounter Details Date Type Department Care Team (Late st Contact Info) Description 10/10/2022 Telephone Hematology [place] [phone] Castro Jimenez MD [facility] HEMATOLOGY/[place] [address] Social History Tobacco Use Types Packs/Day Years [...] phone call from Dr. Jain (office number [phone]) at [facility] ENT office to discuss below. 72 yo male is seen by DR. Jain for enlarging neck masses. 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 FISH is pending. Since he was worked up in [facility], the results are in [facility] system. Due to the airway concern, pt was started on prednisone last week. Dr. Jain reached out to me to see how quickly supervisor jewelry department at [facility] can see him. I discussed this case with Dr. oTlliver and soon after that I was told that Dr. Ram[facility], which will be the best plan. Dr. Jain was updated about this plan by the hematology clinic. Castro Jimenez MD [facility] Hematology Oncology Fellow Page [phone] documented in this encounter Plan of Treatment Upcoming Encounters Date Type Department Care Team (Late st Contact Info) Description 09/26/2023 8:30 AM EDT Infusion Hematology Oncology at [address] [address] 10/03/2023 9:00 AM EDT Office Visit Hematology/Oncology at [address] [phone] Adrianne Ramon MD [facility] DR [place] [address] Yael Merlos, BULK PLANT AGENT [facility] DR [place] [address] 10/03/2023 9:30 AM EDT Infusion Hematology Oncology at [address] [phone] 10/10/2023 8:30 AM EDT Infusion Hematology Oncology at [address] [phone] 10/10/2023 2:45 PM EDT Appointment XRay at [address] [place] [address] Micha Givens Jr., MD [facility] DR [place] [address] 10/10/2023 3:00 PM EDT Appointment Non-Invasive [place] [address] 10/10/2023 3:30 PM EDT Appointment [place] [address] 10/11/2023 8:30 AM EDT Infusion Hematology Oncology at [address] [phone] documented as of this encounter Visit Diagnoses Not on filedocumented in this encounter Care Teams Provider Relations Representative Relationship Specialty Start Date End Date Frederick Meade MD [address] [place] [address] [address] [place] [address] PCP - General Family Medicine 11/29/17 documented as of this encounter
--- OUTSIDE RECORDS SUMMARY | 2023-09-26 02:50 | XMS_ITS | Encounter Summary ---
[place] [address] Care Team Providers Care Food Handler Name Role Phone Frederick Meade MD Primary Care Provider [phone] [phone] Reason for Referral * Diagnostic Test (Routine) - Closed Specialty Diagnoses / Procedures Referred By Contac t Referred To Contact Radiology Diagnoses Diffuse large B-cell lymphoma of lymph nodes of multiple regions Procedures IR [facility] Adrianne Nino MD [facility] DR [place] [address] [facility] [address] Referral ID Status Reason Start Date Expiration Date V isits Requested Visits Authorized [id number] Closed Specialty Service Requested 10/11/2022 04/13/2024 1 1 Reason for Visit * Diagnostic Test (Routine) - Closed Specialty Diagnoses / Procedures Referred By Contac t Referred To Contact Radiology Diagnoses Diffuse large B-cell lymphoma of lymph nodes of multiple regions Procedures IR [facility] Adrianne Nino MD [facility] DR [place] [address] [facility] [address] Referral ID Status Reason Start Date Expiration Date V isits Requested Visits Authorized [id number] Closed Specialty Service Requested 10/11/2022 04/13/2024 1 1 Encounter Details Date Type Department Care Team (Late st Contact Info) Description 10/17/2022 7:32 AM EDT - 10/17/2022 11:15 AM EDT Hospital Encounter Radiology at [facility] [place] [address] Adrianne Ramon MD [facility] DR [place] [address] Diffuse large B-cell lymphoma of lymph nodes [...] provided with an ID card stating the foiling machine operator and type of port you have. Please carry this with you in a safe place. Bandage: There is a sterile dressing over the port site consisting of small gauze with a clear dressing (Tegaderm or [id number] ). This dressing should be left in place for 48 hours. If the clear dressing becomes loose you should place tape over the edges to secure it in place. Note: If you have steri-strips beneath your dressing, simply allow them to fall off. Do not peel them off. There may be [place]mcqueen (skin glue) also, allow this to flake [...] is during regular office hours, please call [phone]. If it is after regular office hours, or on weekends or holidays, please call [phone] and ask to speak to the Battery Loader rectification printer for Interventional Radiology. XXX You have received [...] times daily as needed. Reported on 05/24/2016 ferrous sulfate 325 mg (65 mg iron) [...] (home) Telephone Information: PCP: Frederick Meade MD [phone] Date/Time of call: October 18, 2022/9:37 AM [...] of : 1950 AGE: 72 y.o. Address: [address] [place] [phone] (home) Mobile: Telephone Information: Referring Provider: Adrianne [...] Questions Answers Where will study be performed? [facility] Radiology [120] Prefered insertion location: No Preference [...] reviewed: Yes Higinio Ramsey MD PGY-3 Pager #[phone] Department of Radiology [facility] 10/17/2022 Source Note - James Champion DO [...] access for chemotherapy. IR History: None at [facility]. Antiplatelets: Aspirin 81 mg daily. Anticoagulants: None. 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 Tobacco Use Smoking status: Former Packs/day: 1.00 Types: Cigarettes Quit date: 1985 Years since quittin.6 Smokeless tobacco: Former Quit date: 02/19/1986 Tobacco comments: started smoking in [place] Vaping Use Vaping Use: Never used Substance [...] AM EDT Infusion Hematology Oncology at [address] [address] 10/03/2023 9:00 AM EDT Office Visit Hematology/Oncology at [address] [address] Adrianne Ramon MD [facility] DR [place] [address] Yael Merlos APRN [facility] DR [place] [address] 10/03/2023 9:30 AM EDT Infusion Hematology Oncology at [address] [address] 10/10/2023 8:30 AM EDT Infusion Hematology Oncology at [address] [address] 10/10/2023 2:45 PM EDT Appointment XRay at [address] [place] [address] Micha Givens Jr., MD [facility] [place] [address] 10/10/2023 3:00 PM EDT Appointment Non-[place] [address] 10/10/2023 3:30 PM EDT [facility]ment [facility] [address] 10/11/2023 8:30 AM EDT Infusion Hematology Oncology at [address] [phone] documented as of this encounter [...] implant Indication: Diffuse large B-cell lymphoma, durable jail central venous access for chemotherapy Procedure summary: [...] * POCT Glucose (10/17/2022 8:29 AM EDT) Glucose, POC 101 65 - 199 mg/dL [facility] Comment: Supplemental ranges: <140 mg/dL before meals <180 mg/dL all other times of the day Blood 10/17/2022 8:29 AM EDT 10/17/2022 8:29 AM EDT Adrianne Ramon MD POINT [place] [address] documented in this encounter Visit Diagnoses Diagnosis [...] 10 mg, Subcutaneous, ONCE, 1 dose, On e 10/17/22 at 0845, For use in Interventional Radiology [...] mL/hr documented in this encounter Care Teams Food Handler Relationship Specialty Start Date End Date Frederick Meade MD [address] [facility] 1 [place] [address] PCP - General Family Medicine 11/29/17 documented as of this encounter
--- OUTSIDE RECORDS SUMMARY | 2023-09-26 02:50 | XMS_ITS | Encounter Summary ---
[place] [address] Care Team Providers Care Deputy Director Of Finance Name Role Phone Frederick Meade MD Primary Care Provider [phone] [phone] Reason for Referral * Diagnostic Test (Routine) - Closed Specialty Diagnoses / Procedures Referred By Contac t Referred To Contact Cardiology Diagnoses Diffuse large B-cell lymphoma of lymph nodes of multiple regions Procedures Echocardiogram Transthoracic Adrianne Mera MD [facility] [place] [address] [facility] [place] [address] Referral ID Status Reason Start Date Expiration Date V isits Requested Visits Authorized [id number] Closed Specialty Service Requested 10/11/2022 10/11/2023 1 1 Reason for Visit * Diagnostic Test (Routine) - Closed Specialty Diagnoses / Procedures Referred By Contac t Referred To Contact Cardiology Diagnoses Diffuse large B-cell lymphoma of lymph nodes of multiple regions Procedures Echocardiogram Transthoracic Adrianne Mera MD [facility] [place] [address] [facility] [place] [address] Referral ID Status Reason Start Date Expiration Date V isits Requested Visits Authorized [id number] Closed Specialty Service Requested 10/11/2022 10/11/2023 1 1 Encounter Details Date Type Department Care Team (Late st Contact Info) Description 10/12/2022 9:05 AM EDT - 10/12/2022 10:25 AM EDT Hospital Encounter Non-Invasive Cardiology Lab [facility] [place] [address] Adrianne Mera MD [facility] [place] [address] Diffuse large B-cell lymphoma of lymph nodes [...] AM EDT Infusion Hematology Oncology at [address] [address] 10/03/2023 9:00 AM EDT Office Visit Hematology/Oncology at [address] [address] Adrianne Mera MD [facility] HEMATOLOGY AND ONCOLOGY [place] [address] Yael Merlos APRN [facility] HEMATOLOGY AND [place]COLOG[place] [address] 10/03/2023 9:30 AM EDT Infusion Hematology Oncology at [address] [address] 10/10/2023 8:30 AM EDT Infusion Hematology Oncology at [address] [address] 10/10/2023 2:45 PM EDT Appointment XRay at [address] [place] [address] Micha Givens Jr., MD [facility] DR HEMATOLOGY AND ONCOLOGY [place] [address] 10/10/2023 3:00 PM EDT Appointment Non-[place]vasive [place] [phone] 10/10/2023 3:30 PM EDT Appointment [place] [address] 10/11/2023 8:30 AM EDT Infusion Hematology Oncology at [address] [address] documented as of this encounter Procedures Procedure [...] 164/86 mmHg ? Patient Location: [facility] : 1950 ? Height: 168 cm ? Account: [id number] Age: 72 yrs ? Weight: 97 kg Gender: Male ?BSA: 2.1 m2 Ordering Physician: ADRIANNE MERA Referring Physician: ADRIANNE MERA Performed By: Teresa Villafuerte RDCS Reason For Study: Diffuse large B-cell lymphoma of lymph nodes of multiple regions Exam Location: [facility]. Interpretation Summary Left ventricle is of [...] findings. No comparison study is available. Procedure Complete-[id number]. Satisfactory quality. Left Ventricle Left ventricle is [...] Salvador MD - 10/12/2022 Echocardiogram Report Name: JARETHWOODCHEO Study Date: 309:33 AMBP: 164/86 mmHg Patient Location: [facility] : 1950 Height: 168 cm Account: [id number] Age: 72 yrs Weight: 97 kg Gender: Male BSA: 2.1 m2 Ordering Physician: ADRIANNE MERA Referring Physician: ADRIANNE MERA Performed By: Teresa Villafuerte RDCS Reason For Study: Diffuse large B-cell lymphoma of lymph nodes ofmultiple regions Exam Location: [facility]. Interpretation Summary Left ventricle is of [...] findings. No comparison study is available. Procedure Complete-[id number]. Satisfactory quality. Left Ventricle Left ventricle is [...] mmHg . The estimated right atrial pressure [id number]. There is Grade I LV diastolic dysfunction [...] regions documented in this encounter Care Teams Deputy Director Of Finance Relationship Specialty Start Date End Date Frederick Meade MD [address] [place] [address] [address] [facility] 1 [place] [address] PCP - General Family Medicine 11/29/17 documented as of this encounter
--- OUTSIDE RECORDS SUMMARY | 2023-09-26 02:50 | XMS_ITS | Encounter Summary ---
[place] [address] Care Team Providers Care Principal Quality Engineer Name Role Phone Frederick Meade MD Primary Care Provider +1 -[phone] Encounter Details Date Type Department Care Team (Late st Contact Info) Description 09/22/2022 Notes Only [place] [phone] Karly Jacobs MD [facility] [place] [address] Social History Tobacco Use Types Packs/Day Years [...] AM EDT Infusion Hematology Oncology at [address] [phone] 10/03/2023 9:00 AM EDT Office Visit Hematology/Oncology at [address] [phone] Adrianne Ramon MD [facility] DR [place] [address] Yael Merlos APRN [facility] [place] [address] 10/03/2023 9:30 AM EDT Infusion Hematology Oncology at [address] [phone] 10/10/2023 8:30 AM EDT Infusion Hematology Oncology at [address] [phone] 10/10/2023 2:45 PM EDT Appointment XRay at [address] [place] [address] Micha Givens Jr., MD [facility] DR HEMATOLOGY [place] [address] 10/10/2023 3:00 PM EDT Appointment Non-Invasive [place] [address] 10/10/2023 3:30 PM EDT Appointment [place] [address] 10/11/2023 8:30 AM EDT Infusion Hematology Oncology at [address] [phone] documented as of this encounter Visit Diagnoses Not on filedocumented in this encounter Care Teams Principal Quality Engineer Relationship Specialty Start Date End Date Frederick Meade MD [address] [place] [address] PCP - General Family Medicine 11/29/17 documented as of this encounter
--- OUTSIDE RECORDS SUMMARY | 2023-09-26 02:50 | XMS_ITS | Encounter Summary ---
Author Organization [facility] [place] [address] Care Team Providers Care Centrifuge Separator Operator Name Role Phone Frederick Meade MD Primary Care Provider [phone] [phone] Encounter Details Date Type Department Care Team (Late st Contact Info) Description 10/11/2022 [place] [phone] Provider, Scanning Social History Tobacco Use Types [...] place to sleep or slept in a chcf (including now)? No 10/11/2022 Sex and Gender Information Value Date Recorded Sex Assigned at Not on file Gender Identity Not on file Sexual Orientation Not on file documented as of this encounter Plan of Treatment Upcoming Encounters Date Type Department Care Team (Late st Contact Info) Description 09/26/2023 8:30 AM EDT Infusion Hematology Oncology at [address] [address] 10/03/2023 9:00 AM EDT Office Visit Hematology/Oncology at [address] [address] Adrianne Ramon MD [facility] HEMATOLOGY [place] [address] Yael Merlos, REAL ESTATE LEGAL ASSISTANT [facility] HEMATOLOGY [place] [address] 10/03/2023 9:30 AM EDT Infusion Hematology Oncology at [address] [address] 10/10/2023 8:30 AM EDT Infusion Hematology Oncology at [address] [address] 10/10/2023 2:45 PM EDT Appointment XRay at [address] [place] [address] Micha Givens Jr., MD [facility] HEMATOLOGY [place] [address] 10/10/2023 3:00 PM EDT Appointment Non-[place]vasive [place] [address] 10/10/2023 3:30 PM EDT Appointment [place] [address] 10/11/2023 8:30 AM EDT Infusion Hematology Oncology at [address] [phone] documented as of this encounter Procedures Procedure Name Priority Date/Time Associated Diagnosis Comments SURGICAL PATHOLOGY SCAN Routine 10/11/2022 documented in this encounter Results * Scan Doc: Surgical Pathology (10/11/2022) Historical Provider MD LOPEZ MGR SCAN EX T ORDR/RSLT documented in this encounter Visit Diagnoses Not on filedocumented in this encounter Care Teams Centrifuge Separator Operator Relationship Specialty Start Date End Date Frederick Meade MD [facility] [address] [place] [address] PCP - General Family Medicine 11/29/17 documented as of this encounter
--- OUTSIDE RECORDS SUMMARY | 2023-09-26 02:50 | XMS_ITS | Encounter Summary ---
[place] [address] Care Team Providers Care Equity Sales Assistant Name Role Phone Frederick Meade MD Primary Care Provider [phone] [phone] Reason for Visit * Reason Comments Radiation Follow-up prostate cancer Encounter Details Date Type Department Care Team (Late st Contact Info) Description 11/29/2017 1:45 PM EDT Office Visit Radiation Oncology at [address] [phone] [place] Carr [address] [place] [address] Malignant neoplasm of prostate Social [...] Visit from 11/29/2017 in Radiation Oncology at [facility] Weight 93.2 kg (205 lb [...] prostate cancer with pretreatment PSA of 5.4 [place] 4+3=7. He was treated with external beam [...] elevated at 5.4 with only 9% free. [place] with Dr. Vergara July 2014 who offered biopsy which was performed 09/01/14, demonstrating Gleason4 + 3 disease in a single core at the right apex. Forty-five percent of that core did appear to be involved. Perineural invasion was not seen. Pathology had been reviewed here at [facility]. The patient is here today to [...] the prostate Field orientation: Dynamic arc VMAT Ocean Import Representative Target Coverage (70Gy isodose line indicated): Hormone [...] of education: N/A Occupational History ??? 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 Smoking [...] Visit from 11/29/2017 in Radiation Oncology at [facility] Weight 93.2 kg (205 lb [...] AM EDT Infusion Hematology Oncology at [address] [address] 10/03/2023 9:00 AM EDT Office Visit Hematology/Oncology at [address] [address] Adrianne Ramon MD [facility] HEMATOLOGY [place] [address] Yael Merlos APRN [facility] HEMATOLOGY AND [place] [address] 10/03/2023 9:30 AM EDT Infusion Hematology Oncology at [address] [address] 10/10/2023 8:30 AM EDT Infusion Hematology Oncology at [address] [address] 10/10/2023 2:45 PM EDT Appointment XRay at [address] [place] [address] Micha Givens Jr., MD [facility] DR HEMATOLOGY AND ONCOLOGY [place] [phone] 10/10/2023 3:00 PM EDT Appointment [place] [address] 10/10/2023 3:30 PM EDT Appointment [place] [address] 10/11/2023 8:30 AM EDT Infusion Hematology Oncology at [address] [phone] documented as of this encounter [...] prostate documented in this encounter Care Teams Equity Sales Assistant Relationship Specialty Start Date End Date Frederick Meade MD [address] [place] [address] PCP - General Family Medicine 11/29/17 documented as of this encounter
--- OUTSIDE RECORDS SUMMARY | 2023-09-26 02:50 | XMS_ITS | Encounter Summary ---
Author Organization [facility] [place] [address] Care Team Providers Care Computer Support Technician Name Role Phone Frederick Meade MD Primary Care Provider [phone] [phone] Reason for Visit * Diagnostic Test (Routine) - Closed Specialty Diagnoses / Procedures Referred By Contac t Referred To Contact Radiology Diagnoses Non-Hodgkin lymphoma of lymph nodes of multiple regions, unspecified non-Hodgkin lymphoma type Diffuse large B-cell lymphoma of lymph nodes of multiple regions Procedures NM PET CT Standard Plus Extremities and Head Adrianne Ramon MD [facility] DR [place] [address] [place] [address] Referral ID Status Reason Start Date Expiration Date V isits Requested Visits Authorized [id number] Closed Specialty Service Requested 10/10/2022 04/12/2024 1 2 Encounter Details Date Type Department Care Team (Late st Contact Info) Description 10/12/2022 10:26 AM EDT - 10/12/2022 11:59 PM EDT Hospital Encounter [place] [address] Adrianne Ramon MD [facility] [place] [address] Discharge Disposition: Home Social History [...] AM EDT Infusion Hematology Oncology at [address] [address] 10/03/2023 9:00 AM EDT Office Visit Hematology/Oncology at [address] [address] Adrianne Ramon MD [facility] HEMATOLOGY [place] [address] Yael Merlos, KARLA [facility] HEMATOLOGY [place] [address] 10/03/2023 9:30 AM EDT Infusion Hematology Oncology at [address] [address] 10/10/2023 8:30 AM EDT Infusion Hematology Oncology at [address] [address] 10/10/2023 2:45 PM EDT Appointment XRay at [address] [place] [address] Micha Givens Jr., MD [facility] HEMATOLOGY [place] [address] 10/10/2023 3:00 PM EDT Appointment Non-[place] [address] 10/10/2023 3:30 PM EDT Appointment [place] [address] 10/11/2023 8:30 AM EDT Infusion Hematology Oncology at [address] [phone] documented as of this encounter Procedures Procedure [...] * POCT Glucose (10/12/2022 11:00 AM EDT) Glucose, POC 113 65 - 199 mg/dL [facility] Comment: Supplemental ranges: <140 mg/dL before meals <180 mg/dL all other times of the day Blood 10/12/2022 11:0 0 AM EDT 10/12/2022 11:00 AM EDT dArianne Ramon MD POINT OF CARE [facility] ORDERABLES [facility] [place] [address] documented in this encounter Visit Diagnoses Not on filedocumented in this encounter Care Teams Computer Support Technician Relationship Specialty Start Date End Date Frederick Meade MD [address] [place] [address] PCP - General Family Medicine 11/29/17 documented as of this encounter
--- OUTSIDE RECORDS SUMMARY | 2023-09-26 02:50 | XMS_ITS | Encounter Summary ---
[place] [address] Care Team Providers Care Model Technician Name Role Phone Frederick Meade MD Primary Care Provider [phone] Encounter Details Date Type Department Care Team (Late st Contact Info) Description 10/17/2022 Notes Only [place]ematology [place] [phone] Bailey Moran, RN Social History Tobacco Use [...] AM EDT Infusion Hematology Oncology at [address] [address] 10/03/2023 9:00 AM EDT Office Visit Hematology/Oncology at [address] [address] Adrianne Ramon MD [facility] DR [place]AT[place] [address] Yael Merlos APRN [facility] [place] [address] 10/03/2023 9:30 AM EDT Infusion Hematology Oncology at [address] [phone] 10/10/2023 8:30 AM EDT Infusion Hematology Oncology at [address] [phone] 10/10/2023 2:45 PM EDT Appointment XRay at [address] [place] [address] Micha Givens Jr., MD [facility] HEMATOLOGY [place] [address] 10/10/2023 3:00 PM EDT Appointment Non-[place] [address] 10/10/2023 3:30 PM EDT Appointment [place] [address] 10/11/2023 8:30 AM EDT Infusion Hematology Oncology at [address] [phone] documented as of this encounter Visit Diagnoses Not on filedocumented in this encounter Care Teams Model Technician Relationship Specialty Start Date End Date Frederick Meade MD [address] [place] [address] PCP - General Family Medicine 11/29/17 documented as of this encounter
--- OUTSIDE RECORDS SUMMARY | 2023-09-26 02:50 | XMS_ITS | Encounter Summary ---
[place] [address] Care Team Providers Care Fruit And Vegetable Inspector Name Role Phone Bobby [place] MD Primary Care Provider [phone] Reason for Visit * Reason Comments Radiation Follow-up prostate cancer Encounter Details Date Type Department Care Team (Late st Contact Info) Description 05/31/2017 11:15 AM EDT Office Visit Radiation Oncology at [address] [phone] [address] Carr [address] RADIATION ONCOLOGY [place], [place] [id number] Malignant neoplasm of prostate Social History Tobacco [...] Visit from 05/31/2017 in Radiation Oncology at [facility] Weight 91.7 kg (202 lb 3.2 [...] elevated at 5.4 with only 9% free. Hollis with Dr. Vergara July 2014 who offered biopsy which was performed 09/01/14, demonstrating Gleason4 + 3 disease in a single core at the right apex. Forty-five percent of that core did appear to be involved. Perineural invasion was not seen. Pathology had been reviewed here at [facility]. 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 Smoking [...] sporting events. He will be going to [place] in September to attend a [employer] tournament. He feels he is coping well. [...] Visit from 05/31/2017 in Radiation Oncology at [facility] Weight 91.7 kg (202 lb 3.2 [...] content normal. Vitals reviewed. 05/24/2017 labs CA=9.3, PKZ=359, BUN=37, CREAT=1.45, EGFR=48.25, XK=801, K=3.4, LU=696, CO2=25.1, MG=2.0 Date PSA testosterone 05/23/2017 < [...] AM EDT Infusion Hematology Oncology at [address] [address] 10/03/2023 9:00 AM EDT Office Visit Hematology/Oncology at [address] [phone] Adrianne Ramon MD [facility] HEMATOLOGY [place] [address] Yael Merlos APRN [facility] DR HEMATOLOGY [place] [address] 10/03/2023 9:30 AM EDT Infusion Hematology Oncology at [address] [phone] 10/10/2023 8:30 AM EDT Infusion Hematology Oncology at [address] [phone] 10/10/2023 2:45 PM EDT Appointment XRay at [address] [place] [address] Micha Givens Jr., MD [facility] HEMATOLOGY [place] [address] 10/10/2023 3:00 PM EDT Appointment Non-[place] [address] 10/10/2023 3:30 PM EDT Appointment [place] [address] 10/11/2023 8:30 AM EDT Infusion Hematology Oncology at [address] [phone] documented as of this encounter Visit Diagnoses Diagnosis Malignant neoplasm of prostate documented in this encounter Care Teams Fruit And Vegetable Inspector Relationship Specialty Start Date End Date Bobby [place] MD [address] [place] [address] PCP - General 01/29/14 11/28/17 documented as of this encounter
--- OUTSIDE RECORDS SUMMARY | 2023-09-26 02:50 | XMS_ITS | Encounter Summary ---
Author Organization [facility] [place] [address] Care Team Providers Care Density Control Puncher Name Role Phone Frederick Meade MD Primary Care Provider [phone] Reason for Referral * Consultation (Urgent) - Closed Specialty Diagnoses / Procedures Referred By Paul bowen Referred To Contact Cardiology Diagnoses Diffuse large B-cell lymphoma of lymph nodes of multiple regions CARD-ONC Pt w/o cardiac hx. New lymphoma. Needs anthracycline. Echo w/ EF 49% & mild global hypokinesis. Please eval for ongoing anthracycline safety. Adrianne Mera MD [facility] [place] [address] Chalo Mcintyre MD [facility] [place] [address] Referral ID Status Reason Start Date Expiration Date V isits Requested Visits Authorized [id number] Closed Consult, Test & Treat 10/12/2022 10/12/2023 1 1 * Diagnostic Test (Routine) - Closed Specialty Diagnoses / Procedures Referred By Paul bowen Referred To Contact Cardiology Diagnoses Diffuse large B-cell lymphoma of lymph nodes of multiple regions Procedures Echocardiogram Transthoracic Adrianne Mera MD [facility] [place] [address] [facility] [place] [address] Referral ID Status Reason Start Date Expiration Date V isits Requested Visits Authorized [id number] Closed Specialty Service Requested 10/12/2022 10/12/2023 1 1 Reason for Visit * Reason Comments Follow-up Encounter Details Date Type Department Care Team (Late st Contact Info) Description 10/12/2022 1:30 PM EDT Office Visit [place] [address] Adrianne Mera MD [facility] [address] [place] [address] Adrianne Aquino APRN [facility] [place] [address] Diffuse large B-cell lymphoma of [...] - 10/12/2022 1:30 PM [place] [address] NEW PATIENT EVALUATION Patient Active [...] [facility] and when to [facility]. No beds so sent to [facility] for [address] [...] days with nice response. Pathology from [facility] [place] reports large B-cell lymphoma. Double expresser. FISH for translocations are pending. Tongue swelling. No wt loss. Eating and drinking OK. No fevers, infections, No NS. Pain in neck.Prednisone 60mg daily X 7 days. I feel great on prednisone last day of prednisone is today Took iron supplements per PCP - unclear cause. - last COLO at [facility] was 01/17/2012. Cheo returns today with his [...] only 1 biologic. Son Cheo Freire. Enjoys [employer], [employer], race car, cards. [employer]. 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 Not a . ETOH: 1-3 beers per week Smoking: Quit 1985. Approximately 57-qtuk-ufeb history Vaping or electronic cigarettes: denies Chewing [...] Result Value Ref Range Surgical Pathology Report [id number] Location: [facility] The signing pathologist has (i) examined the relevant preparation(s) for the specimen(s) and (ii) rendered or confirmed the diagnosis(es). . Surgical Pathology DIAGNOSIS CONSULTATION CASE A. TONGUE, LEFT BASE (BIOPSY); [OSR# [id number], COLLECTED 10/05/2022, 12 SLIDES]: 1. Diffuse large B-cell lymphoma, activated B-cell subtype (ABC-DLBCL) (see comment) 2. Ki67 proliferation estimated at >95%, lymphoma coexpresses BCL2 and CMYC Electronically signed by: Ole Bowen MD Verified: 10/12/2022 11:37 Hematopathologist Performed at: -[facility] Dept. of Pathology, [place] [address] Wood Heel Fitter Machine: Katherine Lopez MD, FCAP, [place] Certificate: [id number] DISCUSSION Per report from the referring institution, ...Flow cytometry ([id number]) supports this interpretation. FISH studies were reportedly sent to [facility] to assess for MYC and [...] referring facility, but included for evaluation at [facility]. Appropriate controls are included for each case. . SPECIMEN(S) SUBMITTED CONSULTATION CASE A - 12 slide(s) labeled [id number], collection date 10/05/2022. [id number] CARBON COPY: [facility] Surgical Pathology Department [facility], 2nd Floor [address] [place] [address] CLINICAL INFORMATION A 72 year old man. Per provided report, there is a clinical history of Massive LAD, history of prostate cancer; clinical diagnosis code: R59.1. SPECIMEN PROCESSING [facility] ([facility]) pathology slide(s) are reviewed. Refer to Diagnosis and Specimen Submitted for specific case information. For the full text of the [facility] report(s) please refer to the Chart Review [...] and BCL-2 protein (Double Expressor.) Flow cytometry ([id number]) supports this interpretation. The differential classification of this lesion is diffuse large B-cell lymphoma versus high grade B-cell lymphoma with MYC and BCL-2 rearrangement. Material has been sent to [facility] to assess the status of these genes by FISH and an addendum report with a definitive classification will be issued upon receipt of the result. CD3 (SP7, Thermo Scientific) Background T-cells CD20 (L26, Lorimor) diffusely positive in Neoplastic B-cells PAX-5 (1EW, Leica) diffusely positive in Neoplastic B-cells CD10 (SP67, Lorimor) Negative BCL-6 (G/191E/A8, Lorimor) Positive MUM-1 (MUM1p, Dako) Positive Myc (Y69, Abcam) Positive BCL-2 Oncoprotein (124, Lorimor) Positive Ki67 (MIB-1) (K2, Leica) Greater than 95% of cells in cycle Cyclin D1(SP4-R, Lorimor) Negative SAPPHIRE JOSE (ITL4770-X, Leica) Negative. DIAGNOSTICS: 10/11/22 ECHO EF = [...] undergo investigation with ultrasound. CT CAP at [facility], report and images have been requested. [...] chemotherapy. Furtherprednisone prescriptions will be given by [facility], during PTI chemotherapy teaching Cardiac - EF 49%. No stress test in past. Suspected MEHNAZ - Hgb drop 3gm in last 2 weeks. Taking oral iron 2 tabs per day. Stools have been lamina searcher recently. No COLO in last 10 years. Will add iron studies to labs today and check PET tomorrow.Will follow. Labs seem most consistent with anemia of chronic disease. Prostate Cancer -DAVE at this time Plan: Follow up on FISH for MYC, BCL-2 and BLC-6 -UV sent these tests out to [facility] [place] Prednisone -100 mg on 10/14 and 10/15. Then restart with chemotherapy Mediport -scheduled for Sunday PTI -on 10/18 at 8 AM with Yael Merlos at [facility] Discuss cardiac function, and role of anthracycline with ejection fraction of 49% with Dr. Matthew Mcintyre - message sent today Plan allopurinol X 14 d w/ C#1 Support with Onpro Claritin x1 week status post OnPro ID - acv prophy - add antibiotics only if neutropenic. Midcycle check with Fozia Richardson on 10/25. I appreciate her help. ECHO following C#1 at [facility] approx 10/20/22 Urgent referral to cardiology. Matthew Mcintyre requested. [facility] or [place] I discussed all of the above with the patient and all of his questions were answered. Support and counseling as appropriate. This note was written or modified using [employer] voice recognition software. The final note was screened for purchaser automotive parts errors. Please excuse any remaining errors. Addendum staff message from Matthew Mcintyre, Cardiology: Adrianne; Thanks for the message; will see if we can see him up in [place]. On review of his CT, he has [...] AM EDT Infusion Hematology Oncology at [address] [address] 10/03/2023 9:00 AM EDT Office Visit Hematology/Oncology at [address] [address] Adrianne Mera MD [facility] HEMATOLOGY [place] [address] Yael Merlos APRN [facility] HEMATOLOGY [place] [address] 10/03/2023 9:30 AM EDT Infusion Hematology Oncology at [address] [phone] 10/10/2023 8:30 AM EDT Infusion Hematology Oncology at [address] [phone] 10/10/2023 2:45 PM EDT Appointment XRay at [address] [place] [address] Micha Givens Jr., MD [facility] [place] [address] 10/10/2023 3:00 PM EDT Appointment [place] [address] 10/10/2023 3:30 PM EDT App[place] [address] 10/11/2023 8:30 AM EDT Infusion Hematology Oncology at [address] [phone] Scheduled Referrals Name Type Priority Associated Diagnoses [...] 11:11 AMBP: 154/72 mmHg ? Patient Location: : 1950 ? Height: 169 cm ? Account: [id number] Age: 72 yrs ? Weight: 93 kg [...] function has slightly improved. Procedure Limited - 236[address]. Left ventricular strain. Satisfactory quality. There is [...] Echocardiogram Report Name: CHEO FREIRE Study Date: 1:11 AMBP: 154/72 mmHg Patient Location: : 1950 Height: 169 cm Account: [id number] Age: 72 yrs Weight: 93 kg Gender: [...] LV function hasslightly improved. Procedure Limited - 03[address]. Left ventricular strain. Satisfactory quality. There isnormal [...] regions documented in this encounter Care Teams Density Control Puncher Relationship Specialty Start Date End Date Frederick Meade MD [address] [place] [address] PCP - General Family Medicine 11/29/17 documented as of this encounter
--- OUTSIDE RECORDS SUMMARY | 2023-09-26 02:50 | XMS_ITS | Encounter Summary ---
Author Organization [facility] [place] [address] Care Team Providers Care Order Selector Name Role Phone Frederick Meade MD Primary Care Provider [phone] Encounter Details Date Type Department Care Team (Late st Contact Info) Description 09/21/2022 10:05 PM EDT Ancillary [place] [phone] Thierry Ruiz MD [facility] [place] [address] Social History Tobacco Use Types Packs/Day Years [...] 8:30 AM EDT Infusion Hematology Oncology at [address] [phone] 10/03/2023 9:00 AM EDT Office Visit Hematology/Oncology at [address] [phone] Adrianne Ramon MD [facility] [place] [address] Yael Merlos, KARLA [facility] HEMATOLOGY [place] [address] 10/03/2023 9:30 AM EDT Infusion Hematology Oncology at [address] [phone] 10/10/2023 8:30 AM EDT Infusion Hematology Oncology at [address] [phone] 10/10/2023 2:45 PM EDT Appointment XRay at [address] [place] [address] Micha Givens Jr., MD [facility] HEMATOLOGY [place] [address] 10/10/2023 3:00 PM EDT Appointment Non-[place] [address] 10/10/2023 3:30 PM EDT Appointment [place] [address] 10/11/2023 8:30 AM EDT Infusion Hematology Oncology at [address] [phone] documented as of this encounter Procedures Procedure Name Priority Date/Time Associated Diagnosis Comments FILM LIBRARY STORAGE ONLY CT HEAD AND SPINE Routine 09/21/2022 10:02 PM EDT documented in this encounter Results * Film Library- Storage Only CT Head And Spine (09/21/2022 10:02 PM EDT) Narrative [facility] - 09/21/2022 10:02 PM EDT This exam is auto-finalizing. It's purpose is for storage only. Thierry Ruiz MD [facility] FILM LIBRARY ORD ERABLES DH RAD [place] documented in this encounter Visit Diagnoses Not on filedocumented in this encounter Care Teams Order Selector Relationship Specialty Start Date End Date Frederick Meade MD [address] [place] [address] PCP - General Family Medicine 11/29/17 documented as of this encounter
--- OUTSIDE RECORDS SUMMARY | 2023-09-26 02:50 | XMS_ITS | Encounter Summary ---
Author Organization [place] [address] Care Team Providers Care Shoe Trimmer Name Role Phone Frederick Meade MD Primary Care Provider [phone] Reason for Referral * Diagnostic Test (Routine) - Closed Specialty Diagnoses / Procedures Referred By Contac t Referred To Contact Cardiology Diagnoses Diffuse large B-cell lymphoma of lymph nodes of multiple regions Procedures Echocardiogram Transthoracic Adrianne Mera MD [facility] DR HEMATOLOGY [place] [address] [facility] [place] [address] Referral ID Status Reason Start Date Expiration Date V isits Requested Visits Authorized [id number] Closed Specialty Service Requested 10/11/2022 10/11/2023 1 1 Encounter Details Date Type Department Care Team (Late st Contact Info) Description 10/11/2022 Orders Only [place] [address] Adrianne Mera MD [facility] DR HEMATOLOGY [place] [address] Diffuse large B-cell lymphoma of lymph nodes [...] AM EDT Infusion Hematology Oncology at [address] [address] 10/03/2023 9:00 AM EDT Office Visit Hematology/Oncology at [address] [address] Adrianne Mera MD [facility] HEMATOLOGY [place] [address] Yael Merlos APRN [facility] HEMATOLOGY [place] [address] 10/03/2023 9:30 AM EDT Infusion Hematology Oncology at [address] [phone] 10/10/2023 8:30 AM EDT Infusion Hematology Oncology at [address] [phone] 10/10/2023 2:45 PM EDT Appointment XRay at [address] [place] [address] Micha Givens Jr., MD [facility] HEMATOLOGY AND [place] [address] 10/10/2023 3:00 PM EDT Appointment Non-[place]vasive [place] [phone] 10/10/2023 3:30 PM EDT Appoint[place] [address] 10/11/2023 8:30 AM EDT Infusion Hematology Oncology at [address] [phone] documented as of this encounter Results * ECHO COMPLETE (10/12/2022 10:00 AM EDT) EF 49 [facility]ART[facility] SYSTEM Anatomical Region Laterality Modality Cardiac Other 10/12/2022 9:33 AM EDT Narrative 10/12/2022 10:15 AM EDT ? Echocardiogram Report Name: CHEO MORFIN ? Study Date: 10/12/2022 09:33 AMBP: 164/86 mmHg ? Patient Location: [facility] : 1950 ? Height: 168 cm ? Account: [id number] Age: 72 yrs ? Weight: 97 kg Gender: Male ?BSA: 2.1 m2 Ordering Physician: ADRIANNE MERA Referring Physician: ADRIANNE MERA Performed By: Teresa Villafuerte RDCS Reason For Study: Diffuse large B-cell lymphoma of lymph nodes of multiple regions Exam Location: [facility]. Interpretation Summary Left ventricle is of [...] findings. No comparison study is available. Procedure Complete-80388. Satisfactory quality. Left Ventricle Left ventricle is [...] Salvador MD - 10/12/2022 Echocardiogram Report Name: JO MORFINDESTINEE Santos Study Date: 309:33 AMBP: 164/86 mmHg Patient Location: [facility] : 1950 Height: 168 cm Account: [id number] Age: 72 yrs Weight: 97 kg Gender: Male BSA: 2.1 m2 Ordering Physician: ADRIANNE MERA Referring Physician: ADRIANNE MERA Performed By: Teresa Villafuerte RDCS Reason For Study: Diffuse large B-cell lymphoma of lymph nodes ofmultiple regions Exam Location: [facility]. Interpretation Summary Left ventricle is of [...] findings. No comparison study is available. Procedure Complete-67330. Satisfactory quality. Left Ventricle Left ventricle is [...] mmHg . The estimated right atrial pressure [id number]. There is Grade I LV diastolic dysfunction [...] regions documented in this encounter Care Teams Shoe Trimmer Relationship Specialty Start Date End Date Frederick Meade MD [address] [place] [address] PCP - General Family Medicine 11/29/17 documented as of this encounter
--- OUTSIDE RECORDS SUMMARY | 2023-09-26 02:50 | XMS_ITS | Encounter Summary ---
Author Organization [facility] [address] Care Team Providers Care Butcher Meat Name Role Phone Frederick Meade MD Primary Care Provider [phone] Reason for Visit * Reason Comments Chemotherapy [...] TC CYCLOPHOSPHAMIDE, 100MG (CYTOXAN) Adrianne Ramon MD [facility] DR [place] [address] [facility] [address] [place] [address] Referral ID Status Reason Start Date Expiration Date Visits Re quested Visits Authorized [id number] Closed 10/11/2022 10/11/2023 1 100 Encounter Details Date Type Department Care Team (Late st Contact Info) Description 10/18/2022 9:00 AM EDT Infusion Hematology Oncology at [address] [phone] Diffuse large B-cell lymphoma of [...] AM EDT Infusion Hematology Oncology at [address] [address] 10/03/2023 9:00 AM EDT Office Visit Hematology/Oncology at [address] [address] Adrianne Ramon MD [facility] HEMATOLOGY [place] [address] Yael Merlos APRN [facility] HEMATOLOGY [place] [address] 10/03/2023 9:30 AM EDT Infusion Hematology Oncology at [address] [address] 10/10/2023 8:30 AM EDT Infusion Hematology Oncology at [address] [address] 10/10/2023 2:45 PM EDT Appointment XRay at [address] [place] [address] Micha Givens Jr., MD [facility] HEMATOLOGY [place] [address] 10/10/2023 3:00 PM EDT Appointment Non-[place]vasive [place] [address] 10/10/2023 3:30 PM EDT Appoint[place] [address] 10/11/2023 8:30 AM EDT Infusion Hematology Oncology at [address] [phone] documented as of this encounter [...] 2 minutes is a recommendation from the hide buyer. Administer prior to chemotherapy., Routine Given 10/18/2022 [...] (IV) Procedure: Accessing Implanted Vascular Access Devices (284) procedure and/or Intravenous (IV) Job Aid: Adult Flushing & Catheter Care (3255) job aid for additional information regarding guidelines [...] mL/hr documented in this encounter Care Teams Butcher Meat Relationship Specialty Start Date End Date Frederick Meade MD [address] [place] [address] PCP - General Family Medicine 11/29/17 documented as of this encounter
--- OUTSIDE RECORDS SUMMARY | 2023-09-26 02:50 | XMS_ITS | Encounter Summary ---
Author Organization [facility] [place] [address] Care Team Providers Care Repossessor Name Role Phone Frederick Meade MD Primary Care Provider [phone] Encounter Details Date Type Department Care Team (Latest Contact Info) Description 10/11/2022 3:11 PM EDT - 10/11/2022 11:59 PM EDT [place] [phone] Discharge Disposition: Home Social History Tobacco Use [...] AM EDT Infusion Hematology Oncology at [address] [address] 10/03/2023 9:00 AM EDT Office Visit Hematology/Oncology at [address] [address] Adrianne Ramon MD [facility] [place] [address] Yael Merlos APRN [facility] HEMATOLOGY [place] [address] 10/03/2023 9:30 AM EDT Infusion Hematology Oncology at [address] [address] 10/10/2023 8:30 AM EDT Infusion Hematology Oncology at [address] [address] 10/10/2023 2:45 PM EDT Appointment XRay at [address] [place] [phone] Micha Givens Jr., MD [facility] [place] [address] 10/10/2023 3:00 PM EDT Appointment Non-[place] [phone] 10/10/2023 3:30 PM EDT [place] [phone] 10/11/2023 8:30 AM EDT Infusion Hematology Oncology at [address] [address] documented as of this encounter Procedures Procedure Name Priority Date/Time Associated Diagnosis Comments SURGICAL PATHOLOGY REPORT Routine 10/11/2022 3:13 PM EDT documented in this encounter Results * Surgical Pathology Report (10/11/2022 3:13 PM EDT) Final Diagnosis [id number] ? Location: OPW The signing pathologist has (i) examined the relevant preparation(s) for the specimen(s) and (ii) rendered or confirmed the diagnosis(es). . ?Surgical Pathology DIAGNOSIS CONSULTATION CASE ?? A. TONGUE, LEFT BASE (BIOPSY); [OSR# [id number], COLLECTED 10/05/2022, 12 SLIDES]: ?? 1. Diffuse large B-cell lymphoma, activated B-cell subtype (ABC-DLBCL) (see ?comment) ?? 2. Ki67 proliferation estimated at >95%, lymphoma coexpresses BCL2 and CMYC Electronically signed by: ?Ole Bowen MD Verified: ??10/12/2022 11:37 ??Hematopathologist Performed at: ??-[facility] Dept. of Pathology, [place] [address] User Interface Engineer: Katherine Lopez MD, FCAP, ??CLIA Certificate: [id number] DISCUSSION Per report from the referring institution, ...Flow cytometry ([id number]) supports this interpretation. FISH studies were reportedly sent to [facility] to assess for MYC and BCL2 [...] referring facility, but included for evaluation at [facility]. Appropriate controls are included for each case. . SPECIMEN(S) SUBMITTED CONSULTATION CASE A - 12 slide(s) labeled [id number], collection date 10/05/2022. [id number] CARBON COPY: [facility] Surgical Pathology Department [facility], [facility], 2nd Floor [address], [place] ??[address] CLINICAL INFORMATION A 72 year old man. Per provided report, there is a clinical history of Massive LAD, history of prostate cancer; clinical diagnosis code: R59.1. SPECIMEN PROCESSING [facility] ([facility]) pathology slide(s) are reviewed. Refer to Diagnosis and Specimen Submitted for specific case information. For the full text of the [facility] report(s) please refer to the Chart Review Media tab in the electronic health record (eDH). 10/12/2022 11:37 AM EDT [facility] Consult Case 10/11/2022 3:13 PM EDT 10/11/2022 3:13 PM EDT Adrianne Ramon MD PATHOLOGY/CYTOLO GY ORDERABLES [facility] [place] [address] [facility] [place] [address] documented in this encounter Visit Diagnoses Not on filedocumented in this encounter Care Teams Repossessor Relationship Specialty Start Date End Date Frederick Meade MD [address] [place] [address] PCP - General Family Medicine 11/29/17 documented as of this encounter
--- OUTSIDE RECORDS SUMMARY | 2023-09-26 02:50 | XMS_ITS | Encounter Summary ---
Author Organization [facility] [place] [address] Care Team Providers Care Home Paraprofessional Name Role Phone Frederick Meade MD Primary Care Provider [phone] [phone] Reason for Visit * Treatment/Therapy Plan Authorization [...] TC CYCLOPHOSPHAMIDE, 100MG (CYTOXAN) Adrianne Ramon MD [facility] [place] [address] [facility] Infusion [address] [place] [address] Referral ID Status Reason Start Date Expiration Date Visits Re quested Visits Authorized [id number] Closed 10/11/2022 10/11/2023 1 100 Encounter Details Date Type Department Care Team (Latest Contact Info) Description 10/17/2022 11:16 AM EDT - 10/17/2022 11:59 PM EDT Hospital Encounter Hematology [place] [address] Diffuse large B-cell lymphoma of [...] times daily as needed. Reported on 05/24/2016 loratadine (Claritin) 10 mg Tablet Take 1 [...] flushed, left accessed for tomorrow infusion at [facility] documented in this encounter Plan of Treatment Upcoming Encounters Date Type Department Care Team (Late st Contact Info) Description 09/26/2023 8:30 AM EDT Infusion Hematology Oncology at [address] [phone] 10/03/2023 9:00 AM EDT Office Visit Hematology/Oncology at [address] [phone] Adrianne Ramon MD [facility] DR HEMATOLOGY [place] [address] Yael Merlos APRN [facility] [place] [address] 10/03/2023 9:30 AM EDT Infusion Hematology Oncology at [address] [phone] 10/10/2023 8:30 AM EDT Infusion Hematology Oncology at [address] [phone] 10/10/2023 2:45 PM EDT Appointment XRay at [address] [place] [address] Micha Givens Jr., MD [facility] HEMATOLOGY [place] [address] 10/10/2023 3:00 PM EDT Appointment Non-[place] [address] 10/10/2023 3:30 PM EDT Appointment [place] [address] 10/11/2023 8:30 AM EDT Infusion Hematology Oncology at [address] [phone] Scheduled Orders Name Type Priority Associated Diagnoses [...] lymphoma of lymph nodes of multiple regions HEPATITIS C ANTIBODY STAT 10/17/2022 11:45 AM EDT Diffuse large B-cell lymphoma of lymph nodes of multiple regions HEPATITIS B CORE ANTIBODY, TOTAL Routine 10/17/2022 11:45 AM EDT Diffuse large B-cell lymphoma of lymph nodes of multiple regions HIV SCREEN, 4TH GENERATION ([facility]/CGP/APD/NLH) STAT 10/17/2022 11:45 AM EDT Diffuse large B-cell lymphoma of lymph nodes of multiple regions HEPATITIS B SURFACE ANTIBODY Routine 10/17/2022 11:45 AM EDT Diffuse large B-cell lymphoma of lymph nodes of multiple regions HEPATITIS B SURFACE ANTIGEN Routine 10/17/2022 11:45 AM EDT Diffuse large B-cell lymphoma of lymph nodes of multiple regions CBC (WITH DIFF) STAT 10/17/2022 11:45 AM EDT Diffuse large B-cell lymphoma of lymph nodes of multiple regions URIC ACID STAT 10/17/2022 11:45 AM EDT Diffuse large B-cell lymphoma of lymph nodes of multiple regions PHOSPHORUS STAT 10/17/2022 11:45 AM EDT Diffuse large B-cell lymphoma of lymph nodes of multiple regions MAGNESIUM STAT 10/17/2022 11:45 AM EDT Diffuse large B-cell lymphoma of lymph nodes of multiple regions LACTATE DEHYDROGENASE STAT 10/17/2022 11:45 AM EDT Diffuse large B-cell lymphoma of lymph nodes of multiple regions COMPREHENSIVE METABOLIC PANEL STAT 10/17/2022 11:45 AM EDT Diffuse large B-cell lymphoma of lymph nodes of multiple regions documented in this encounter Results * Scan, Peripheral Blood (10/17/2022 11:45 AM EDT) Pathologist [facility] Plat estimate Normal [facility] RBC Morphology Abnormal [facility] Ovalocytes 1-5 /HPF [facility] IT[facility] Tear Cell 1-5 /HPF [facility] Blood 10/17/2022 11:4 5 AM EDT 10/17/2022 12:08 PM EDT Narrative Resulting Agency Comment Spec In Lab Adrianne Ramon MD HEMATOLOGY ORDER DUONG [facility] [place] [address] * (ABNORMAL) Differential, Automated (10/17/2022 11:45 AM EDT) Neutrophil % 68.0 % [facility] Neutrophil Absolute 7.17(H) 1.70 - 6.10 x10(3)/mc L [facility] Lymph % 13.6 % [facility] Lymphocytes Abs 1.4 0.9 - 3.2 x10(3)/[facility] Monocyte % 14.8 % [facility] Monocyte Abs 1.6(H) 0.3 - 0.9 x10(3)/[facility] Eos % 2.8 % [facility] Eosinophils Abs 0.3 0.0 - 0.4 x10(3)/[facility] Basophil % 0.3 % [facility] Baso Absolute 0.0 0.0 - 0.1 x10(3)/[facility] Immature Gran % 0.50 % [facility] Comment: Immature granulocytes(IG's)percentage and absolute count will include metamyelocytes, myelocytes, and promyelocytes. Blood smears from CBCs yielding IG's will be scanned manually for concordance. If this scan disagrees with the automated IG or if promyelocytes are noted, a manual differential will be performed. Immature Gran Absolute 0.05(H) 0.00 - 0.04 x10(3)/[facility] Blood 10/17/2022 11:4 5 AM EDT 10/17/2022 12:08 PM EDT Narrative Resulting Agency Comment Spec In Lab dArianne Ramon MD HEMATOLOGY ORDER DUONG [facility] [place] [address] * (ABNORMAL) Hemogram (10/17/2022 11:45 AM EDT) White Blood Cell 10.6(H) 4.0 - 9.5 x10(3)/[facility] Red Blood Cell 3.68(L) 4.58 - 5.54 x10(6)/[facility] Hemoglobin 11.3(L) 13.7 - 16.5 g/dL [facility] Hematocrit 33.8(L) 40.5 - 48.5 % [facility] Mean Cell Volume 91.8 82.9 - 93.1 fL [facility] Mean Cell Hemoglobin 30.7 27.5 - 32.1 pg [facility] Mean Cell Hemoglobin Concentration 33.4 32.0 - 35.7 g/dL [facility] Platelet 261 145 - 357 x10(3)/mc L [facility] RDW Standard Deviation 49.5(H) 36.0 - 45.0 fL [facility] RDW coefficient of variation 14.6(H) 11.4 - 13.8 % [facility] Mean Platelet Volume 9.4 7.6 - 12.9 fL [facility] NRBC% auto 0.0 % [facility] NRBC Absolute 0.000 0.000 - 0.000 x10(3)/mc L [facility] Blood 10/17/2022 11:4 5 AM EDT 10/17/2022 12:08 PM EDT Narrative Resulting Agency Comment Spec In Lab Adrianne Ramon MD HEMATOLOGY ORDER DUONG Performing Organization Address City/[facility]/ZIP Co de Phone Number [facility] [place] [address] * Hepatitis C Antibody (10/17/2022 11:45 AM EDT) Hepatitis C Antibody Negative Negative [facility] Blood 10/17/2022 11:4 5 AM EDT 10/17/2022 12:08 PM EDT Narrative Resulting Agency Comment Spec In Lab Adrianne Ramon MD CHEMISTRY ORDERA BLES Performing Organization Address City/[facility]/ZIP Co de Phone Number [facility] [place] [address] * HIV Screen, 4th Generation ([facility]/CGP/APD/NLH) (10/17/2022 11:45 AM EDT) HIV Ab/Ag Screen Negative Negative [facility] Comment: This 4th Generation HIV [...] HIV Comment Low Risk of HIV Infection [facility] Blood 10/17/2022 11:4 5 AM EDT 10/17/2022 12:08 PM EDT Narrative Resulting Agency Comment Spec In Lab Adrianne Ramon MD CHEMISTRY ORDERA BLES [facility] [place] [address] * Hepatitis B Surface Antibody (10/17/2022 11:45 AM EDT) Hepatitis B Surface Antibody, Quantitative <3.5 IU/L [facility] Comment: HepB Surface Ab Quant: Unvaccinated: < 8.5 IU/L Vaccinated: >= 11.5 IU/L Hepatitis B Surface Antibody Negative [facility] Comment: Patient is presumed to be not vaccinated or immune to HBV infection. Expected Results: Vaccinated: Positive Unvaccinated: Negative Blood 10/17/2022 11:4 5 AM EDT 10/17/2022 12:08 PM EDT Narrative Resulting Agency Comment Spec In Lab Adrianne Ramon MD CHEMISTRY ORDERA BLES Performing Organization Address City/[facility]/ZIP Co de Phone Number [facility] [place] [address] * Hepatitis B Surface Antigen (10/17/2022 11:45 AM EDT) Hepatitis B Surface Antigen Negative Negative [facility] Blood 10/17/2022 11:4 5 AM EDT 10/17/2022 12:08 PM EDT Narrative Resulting Agency Comment Spec In Lab Adrianne Ramon MD CHEMISTRY ORDERA BLES [facility] [place] [address] * Hepatitis B Core Antibody, Total (10/17/2022 11:45 AM EDT) Hepatitis B Core Antibody Negative Negative [facility] Blood 10/17/2022 11:4 5 AM EDT 10/17/2022 12:08 PM EDT Narrative Resulting Agency Comment Spec In Lab Adrianne Ramon MD CHEMISTRY ORDERA BLES [facility] [place] [address] * Uric acid (10/17/2022 11:45 AM EDT) Uric Acid 5.3 3.5 - 8.5 mg/dL [facility] Blood 10/17/2022 11:4 5 AM EDT 10/17/2022 12:08 PM EDT Narrative Resulting Agency Comment Spec In Lab Adrianne Ramon MD CHEMISTRY ORDERA BLES Performing Organization Address City/[facility] Co de Phone Number [facility] [place] [address] * Phosphorus (10/17/2022 11:45 AM EDT) Phosphorus 3.2 2.5 - 4.5 mg/dL [facility] Blood 10/17/2022 11:4 5 AM EDT 10/17/2022 12:08 PM EDT Narrative Resulting Agency Comment Spec In Lab Adrianne Ramon MD CHEMISTRY ORDERA BLES Performing Organization Address City/[facility]/ZIP Co de Phone Number [facility] [place] [address] * Magnesium (10/17/2022 11:45 AM EDT) Magnesium 0.78 0.69 - 1.07 mmol/L [facility] Blood 10/17/2022 11:4 5 AM EDT 10/17/2022 12:08 PM EDT Narrative Resulting Agency Comment Spec In Lab Adrianne Ramon MD CHEMISTRY ORDERA BLES [facility] [place] [address] * (ABNORMAL) Lactate Dehydrogenase (10/17/2022 11:45 AM EDT) Lactate Dehydrogenase 251(H) 110 - 220 unit/L [facility] Blood 10/17/2022 11:4 5 AM EDT 10/17/2022 12:08 PM EDT Narrative Resulting Agency Comment Spec In Lab Adrianne Ramon MD CHEMISTRY ORDERA BLES [facility] [place] [address] * Comprehensive metabolic panel (non-fasting) (10/17/2022 11:45 AM EDT) Glucose 110 65 - 199 mg/dL [facility] Comment:Diabetes: >=200 mg/d L plus symptoms Blood Urea Nitrogen 17 10 - 20 mg/dL [facility] Creatinine 1.07 0.80 - 1.50 mg/dL [facility] Sodium 139 135 - 145 mmol/L [facility] Potassium 3.6 3.5 - 5.0 mmol/L [facility] Comment: Please note: ??Patients with WBC >100,000 may have falsely elevated Potassium levels. ??For accurate Potassium quantification in these patients send serum separator tube (gold top) for subsequent determinations. ??Contact the Clinical Chemistry Laboratory if there are any questions. Chloride 105 98 - 107 mmol/L [facility] Carbon Dioxide 23 22 - 31 mmol/L [facility] Anion Gap 11 5 - 15 mmol/L [facility] Calcium 8.9 8.5 - 10.5 mg/dL [facility] Protein, Total 6.2 6.1 - 8.0 g/dL [facility] Albumin 3.6 3.2 - 5.2 g/dL [facility] Aspartate Aminotransferase 14 0 - 39 unit/L [facility] Alanine Aminotransferase 27 0 - 55 unit/L [facility] Alkaline Phosphatase 103 40 - 130 unit/L [facility] Bilirubin, Total 0.4 0.2 - 1.3 mg/dL [facility] Est Glomerular Filtration Rate 73 >=60 mL/min/1. 73 m?? [facility] Comment: This patient's estimated GFR [...] Lab Adrianne Ramon MD CHEMISTRY ORDERA BLES [facility] Organization Address City/State/ZIP Co de Phone Number [facility] [place] [address] documented in this encounter Visit Diagnoses Diagnosis [...] Job Aid: Adult Flushing & Catheter Care (8438) job aid for additional information regarding guidelines [...] Job Aid: Adult Flushing & Catheter Care (6172) job aid for additional information regarding guidelines and administration., Routine Given 10/17/2022 12:11 PM EDT 20 mLs documented in this encounter Care Teams Home Paraprofessional Relationship Specialty Start Date End Date Frederick Meade MD [address] [place] [address] PCP - General Family Medicine 11/29/17 documented as of this encounter
--- OUTSIDE RECORDS SUMMARY | 2023-09-26 02:50 | XMS_ITS | Encounter Summary ---
[place] [address] Care Team Providers Care Negative Restorer Name Role Phone Frederick Meade MD Primary Care Provider [phone] Encounter Details Date Type Department Care Team (Late st Contact Info) Description 09/21/2022 Notes [place] [address] Karly Jacobs MD [facility] [place] [address] Social History Tobacco Use Types Packs/Day Years [...] by Transfer Center by Dr. Lucero at [facility] on 09/21/22 regarding Cheo Freire. Cheo Freire is a 72 y.o. male with PMH T2DM (diet controlled), HTN (lisinopril), prostate Ca (diagnosed 2014, no treatment), tobacco use history (quit 1984), prior chewing tobacco use history, very occasional alcohol who presented to [facility] with 1 wk throat swelling and facial [...] ENT, Dr. Ramírez, who is apparently in [place], but suggested this may represent angioedema vs [...] for scope exam to evaluate further. Unfortunately, [facility] had no availability to transfer patient at [...] Jacobs MD, PGY3 09/21/2022 11:33 PM Pager #[phone] documented in this encounter Plan of Treatment Upcoming Encounters Date Type Department Care Team (Late st Contact Info) Description 09/26/2023 8:30 AM EDT Infusion Hematology Oncology at [address] [address] 10/03/2023 9:00 AM EDT Office Visit Hematology/Oncology at [address] [phone] Adrianne Ramon MD [facility] DR [place] [address] Yael Merlos, KARLA [facility] [place] [address] 10/03/2023 9:30 AM EDT Infusion Hematology Oncology at [address] [address] 10/10/2023 8:30 AM EDT Infusion Hematology Oncology at [address] [address] 10/10/2023 2:45 PM EDT Appointment XRay at [address] [place] [address] Micha Givens Jr., MD [facility] DR HEMATOLOGY [place] [address] 10/10/2023 3:00 PM EDT Appointment Non[place] [phone] 10/10/2023 3:30 PM EDT Appointment [place] [address] 10/11/2023 8:30 AM EDT Infusion Hematology Oncology at [address] [address] documented as of this encounter Results * [...] who have questions please contact the health daytime caregiver that requested your imaging first. ? Electronically signed by: Kervin Lam MD, [facility] ([phone]), at 09/22/2022 3:13 PM Narrative 09/22/2022 3:13 [...] patients who have questions please contactthe health daytime caregiver that requested your imaging first. 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
--- OUTSIDE RECORDS SUMMARY | 2023-09-26 02:50 | XMS_ITS | Encounter Summary ---
Author Organization [facility] [place] [address] Care Team Providers Care Provider Network Mgr Name Role Phone Frederick Meade MD Primary Care Provider [phone] Encounter Details Date Type Department Care Team [...] AM EDT Infusion Hematology Oncology at [address] [address] 10/03/2023 9:00 AM EDT Office Visit Hematology/Oncology at [address] [address] Adrianne Ramon MD [facility] HEMATOLOGY [place] [address] Yael Merlos APRN [facility] HEMATOLOGY [place] [address] 10/03/2023 9:30 AM EDT Infusion Hematology Oncology at [address] [address] 10/10/2023 8:30 AM EDT Infusion Hematology Oncology at [address] [address] 10/10/2023 2:45 PM EDT Appointment XRay at [address] [place] [phone] Micha Givens Jr., MD [facility] HEMATOLOGY [place] [address] 10/10/2023 3:00 PM EDT Appointment Non-[place] [phone] 10/10/2023 3:30 PM EDT Appointment [place] [address] 10/11/2023 8:30 AM EDT Infusion Hematology Oncology at [address] [address] documented as of this encounter Visit Diagnoses Not on filedocumented in this encounter Care Teams Provider Network Mgr Relationship Specialty Start Date End Date Frederick Meade MD [address] [place] [address] PCP - General Family Medicine 11/29/17 documented as of this encounter
--- OUTSIDE RECORDS SUMMARY | 2023-09-26 02:50 | XMS_ITS | Encounter Summary ---
[place] [address] Care Team Providers Care Cook Apprentice Pastry Name Role Phone Frederick Meade MD Primary Care Provider [phone] Reason for Referral * Diagnostic Test (Routine) - Closed Specialty Diagnoses / Procedures Referred By Contac t Referred To Contact Radiology Diagnoses Diffuse large B-cell lymphoma of lymph nodes of multiple regions Procedures IR Mediport Placement Adrianne Ramon MD [facility] DR [place] [address] [place] [address] Referral ID Status Reason Start Date Expiration Date V isits Requested Visits Authorized [id number] Closed Specialty Service Requested 10/11/2022 04/13/2024 1 1 * Diagnostic Test (Routine) - Closed Specialty Diagnoses / Procedures Referred By Contac t Referred To Contact Radiology Diagnoses Non-Hodgkin lymphoma of lymph nodes of multiple regions, unspecified non-Hodgkin lymphoma type Diffuse large B-cell lymphoma of lymph nodes of multiple regions Procedures NM PET CT Standard Plus Extremities and Head Adrianne Ramon MD [facility] DR H[place] [address] [place] [address] Referral ID Status Reason Start Date Expiration Date V isits Requested Visits Authorized [id number] Closed Specialty Service Requested 10/10/2022 04/12/2024 1 2 Reason for Visit * Consultation (Routine) - Closed Specialty Diagnoses / Procedures Referred By Contac t Referred To Contact Hematology and Oncology Diagnoses Diffuse large B-cell lymphoma, unspecified body region Lg Ramírez MD [address] [place] [address] Hem Onc Office [address] [place] [phone] Referral ID Status Reason Start Date Expiration Date V isits Requested Visits Authorized [id number] Closed Consult, Test & Treat 10/10/2022 10/10/2023 1 1 Encounter Details Date Type Department Care Team (Late st Contact Info) Description 10/11/2022 12:00 PM EDT Office Visit Hematology/Oncology at [address] [phone] Adrianne Ramon MD [facility] DR HEMATOLOG[place] [address] Non-Hodgkin lymphoma of lymph nodes of multiple [...] - 10/11/2022 12:00 PM EDT Hematology Clinic [facility] [place] [address] NEW PATIENT EVALUATION Patient Active Problem List [...] [facility] and when to [facility]. No beds so sent to [facility] for [address] CAP, [...] days with nice response. Pathology from [facility] reports large B-cell lymphoma. Double expresser. FISH for translocations are pending. Tongue swelling. No wt loss. Eating and drinking OK. No fevers, infections, No NS. Pain in neck.Prednisone 60mg daily X 7 days. I feel great on prednisone last day of prednisone is today Took iron supplements per PCP - unclear cause. - last COLO at [facility] was 01/17/2012. This dictation platform is no longer active. Please use Lokofotoon. ONCOLOGY HISTORY: Intermediate risk prostate cancer (4+3, [...] Freire. Enjoys reads, movies, race car, cards. Geostellar. 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 Not a . ETOH: 1-3 beers per week Smoking: Quit 1985. Approximately [id number]-cjlo-[id number] history Vaping or electronic cigarettes: denies Chewing [...] and BCL-2 protein (Double Expressor.) Flow cytometry ([id number]) supports this interpretation. The differential classification of this lesion is diffuse large B-cell lymphoma versus high grade B-cell lymphoma with MYC and BCL-2 rearrangement. Material has been sent to [facility] to assess the status of [...] undergo investigation with ultrasound. CT CAP at [facility], report and images have been requested. [...] We will obtain his pathology from [facility], but it appears to be a large [...] will plan to see him tomorrow at [facility] after the PET scan for brief review of the PET scan and discussion of next steps. I did explain to the patient and his family that he most likely will receive R-CHOP chemotherapy which is given 1 day as an outpatient and [facility] and repeated every 3 weeksfor a total of 6 cycles. This takes about 4-1/2 months to complete. I anticipate his lymphoma will respond well. Suspected MEHNAZ - Hgb drop 3gm in last 2 weeks. Taking oral iron 2 tabs per day. 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 No COLO in last 10 years. Will add iron studies to labs today and check PET tomorrow.Will follow. Labs seem most consistent with anemia of chronic disease. Prostate Cancer -DAVE at this time Plan: PET tomorrow [facility] Obtain Path for review at [facility] - follow on FISH Obtain records from [place] -CT chest abdomen and pelvis, discharge summary, and MRI Prednisone -we will hold for now. Await PET scan tomorrow. Mediport -order placed and requested today PTI -on 10/18 at 8 AM with Yael Merlos at [facility] ECHO-tomorrow at [facility] Add on MEHNAZ labs -results returned and listed above Labs on day of PET at [facility] Consult social work at next visit -not yet discussed Consult nutrition at next visit -not yet discussed Plan allopurinol X 14 d w/ C#1 Support with Onpro ID - acv prophy - add antibiotics only if neutropenic. Labs tomorrow at [facility] - hep B/C, HIV, uric I discussed all of the above with the patient and all of his questions were answered. Support and counseling as appropriate. This note was written or modified using Freespee voice recognition software. The final note was screened for stockroom helper errors. Please excuse any remaining errors. total time: time in counselling: Copy Frederick Meade MD * Polly Orellana RN - 10/11/2022 12:00 PM EDT [facility] Patient Medical Oncology Note SOCIAL ASSESSMENT: See [facility] social assessment information entered. 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 Need FMLA paperwork signed [...] [ ] no Local Pharmacy: [facility] FUNCTIONAL SCREENING: Balance difficulty: [...] AM EDT Infusion Hematology Oncology at [address] [phone] 10/03/2023 9:00 AM EDT Office Visit Hematology/Oncology at [address] [phone] Adrianne Ramon MD [facility] HEMATOLOGY [place] [address] Yael Merlos APRN [facility] HEMATOLOGY [place] [address] 10/03/2023 9:30 AM EDT Infusion Hematology Oncology at [address] [phone] 10/10/2023 8:30 AM EDT Infusion Hematology Oncology at [address] [phone] 10/10/2023 2:45 PM EDT Appointment XRay at [address] [place] [address] Micha Givens Jr., MD [facility] HEMATOLOGY [place] [address] 10/10/2023 3:00 PM EDT Appointment [place] [address] 10/10/2023 3:30 PM EDT Appointment [place] [address] 10/11/2023 8:30 AM EDT Infusion Hematology Oncology at [address] [phone] Scheduled Orders Name Type Priority Associated Diagnoses [...] (WITH DIFF) Routine 10/11/2022 COMPREHENSIVE METABOLIC PANEL Routine 10/11/2022 CBC (WITH DIFF) Routine 09/30/2022 COMPREHENSIVE METABOLIC PANEL Routine 09/30/2022 PSA (ULTRASENSITIVE) Routine 09/21/2022 documented in this encounter Results * Uric acid (03/06/2023 7:45 AM EST) Uric Acid 5.5 3.5 - 8.5 mg/dL [facility] Blood 03/06/2023 7:45 AM EST 03/06/2023 8:00 AM EST Narrative Resulting Agency Comment Spec In Lab Adrianne Ramon MD CHEMISTRY ORDERA BLES [facility] [place] [address] * Lactate Dehydrogenase (03/06/2023 7:45 AM EST) Lactate Dehydrogenase 198 110 - 220 unit/L [facility] Blood 03/06/2023 7:45 AM EST 03/06/2023 8:00 AM EST Narrative Resulting Agency Comment Spec In Lab Adrianne Ramon MD CHEMISTRY ORDERA BLES Performing Organization Address City/[facility] Co de Phone Number [facility] [place] [address] * (ABNORMAL) Immunoglobulins, Quantitative (03/06/2023 7:45 AM EST) Immunoglobulin G 572(L) 700 - 1,600 mg/dL [facility] Comment: Pediatric Reference Intervals obtained from the Caliper Reference Interval project. http://www.Advanced Patient Care.ca/caliperproject/index.html IgA 118 70 - 400 mg/dL [facility] IgM 123 40 - 230 mg/dL [facility] Blood 03/06/2023 7:45 AM EST 03/06/2023 8:00 AM EST Narrative Resulting Agency Comment Spec In Lab Adrianne Ramon MD CHEMISTRY ORDERA BLES Performing Organization Address [facility] Co de Phone Number [facility] [place] [address] * (ABNORMAL) Comprehensive metabolic panel (non-fasting) (03/06/2023 7:45 AM EST) Glucose 133 65 - 199 mg/dL [facility] Comment:Diabetes: >=200 mg/d L plus symptoms Blood Urea Nitrogen 12 10 - 20 mg/dL [facility] Creatinine 0.94 0.80 - 1.50 mg/dL [facility] Sodium 143 135 - 145 mmol/L [facility] Potassium 3.7 3.5 - 5.0 mmol/L [facility] Comment: Please note: ??Patients with WBC >100,000 may have falsely elevated Potassium levels. ??For accurate Potassium quantification in these patients send serum separator tube (gold top) for subsequent determinations. ??Contact the Clinical Chemistry Laboratory if there are any questions. Chloride 108(H) 98 - 107 mmol/L [facility] Carbon Dioxide 23 22 - 31 mmol/L [facility] Anion Gap 12 5 - 15 mmol/L [facility] Calcium 9.6 8.5 - 10.5 mg/dL [facility] Protein, Total 6.4 6.1 - 8.0 g/dL [facility] Albumin 4.1 3.2 - 5.2 g/dL [facility] Aspartate Aminotransferase 22 0 - 39 unit/L [facility] Alanine Aminotransferase 18 0 - 55 unit/L [facility] Alkaline Phosphatase 103 40 - 130 unit/L [facility] Bilirubin, Total 0.2 0.2 - 1.3 mg/dL [facility] Est Glomerular Filtration Rate 85 >=60 mL/min/1. 73 m?? [facility] Comment: This patient's estimated GFR was [...] Lab Adrianne Ramon MD CHEMISTRY ORDERA DANICAS [facility] [place] [address] * HIV Screen, 4th Generation ([facility]/CGP/APD/NLH) (10/17/2022 11:45 AM EDT) HIV Ab/Ag Screen Negative Negative [facility] Comment: This 4th Generation HIV test [...] HIV Comment Low Risk of HIV Infection [facility] Blood 10/17/2022 11:4 5 AM EDT 10/17/2022 12:08 PM EDT Narrative Resulting Agency Comment Spec In Lab Adrianne Ramon MD CHEMISTRY ORDERA BLES Performing Organization Address City/[facility] Co de Phone Number [facility] [place] [address] * Hepatitis C Antibody (10/17/2022 11:45 AM EDT) Hepatitis C Antibody Negative Negative [facility] Blood 10/17/2022 11:4 5 AM EDT 10/17/2022 12:08 PM EDT Narrative Resulting Agency Comment Spec In Lab Adrianne Ramon MD CHEMISTRY ORDERA BLES Performing Organization Address [facility] Co de Phone Number [facility] [place] [address] * IR Mediport Placement (10/17/2022 10:44 AM EDT) Anatomical Region Laterality Modality X-Ray Angiograph y Narrative 10/17/2022 11:06 AM EDT Interventional Radiology Procedure Note Procedure: Subcutaneous venous port implant Indication: Diffuse large B-cell lymphoma, durable retirement central venous access for chemotherapy Procedure summary: [...] who have questions please contact the health childcare administrator that requested your imaging first. ? Narrative 10/12/2022 3:23 PM EDT EXAMINATION: NM PET CT STANDARD PLUS EXTREMITIES AND HEAD CLINICAL HISTORY: Non-Hodgkin lymphoma, staging new large B cell lymphoma - involving oropharynx/ cervical. ??staging. TECHNIQUE: Procedure: Following IV injection of 67-tcoaqz-5-deoxyglucose (FDG) a standard uptake of approximately 60 [...] staging. TECHNIQUE: Procedure: Following IV injection of 48-jqxmjr-7-deoxyglucose(FDG) a standard uptake of approximately 60 minutes, [...] patients who have questions please contactthe health childcare administrator that requested your imaging first. Adrianne Ramon MD IMG PET ORDERABL ES * Comprehensive metabolic panel (non-fasting) (10/11/2022) Pathologist [facility] Blood Urea Nitrogen 20 Creatinine 1.2 Sodium 134 Potassium 4.0 Bilirubin, Total 0.3 Aspartate Aminotransferase 15 Alanine Aminotransferase 49 Lactate Dehydrogenase 283 Iron 62 Iron Saturation 29 Ferritin 139 TIBC 214 Blood 10/11/2022 Historical Provider CHEMISTRY ORDERAB LES * CBC (with Diff) (10/11/2022) Pathologist [facility] White Blood Cell 11.95 Hemoglobin 10.8 Hematocrit 32.1 Platelet 290 ANC 9.67 Blood 10/11/2022 Historical Provider HEMATOLOGY ORDERA BLES * Comprehensive metabolic panel (non-fasting) (09/30/2022) Pathologist [facility] Glucose 129 Blood Urea Nitrogen 24 Creatinine 1.3 Sodium 132 Potassium 3.4 Chloride 96 Carbon Dioxide 23 Calcium 9.0 Protein, Total 7.3 Albumin 3.6 Bilirubin, Total 0.3 Alkaline Phosphatase 115 Aspartate Aminotransferase 19 Alanine Aminotransferase 42 Blood 09/30/2022 Historical Provider CHEMISTRY ORDERAB LES * CBC (with Diff) (09/30/2022) White Blood Cell 13.34 Hemoglobin 13.0 Hematocrit 37.4 Platelet 320 ANC 9.02 Blood 09/30/2022 Historical Provider HEMATOLOGY ORDERA BLES * PSA (Ultrasensitive) (09/21/2022) Prostate Specific Antigen (Ultrasensitive ) 0.04 Blood 09/21/2022 Historical Provider [...] regions documented in this encounter Care Teams Cook Apprentice Pastry Relationship Specialty Start Date End Date Frederick Meade MD [address] [place] [address] PCP - General Family Medicine 11/29/17 documented as of this encounter
--- OUTSIDE RECORDS SUMMARY | 2023-09-26 02:50 | XMS_ITS | Encounter Summary ---
[place] [address] Care Team Providers Care Mine Engineering Superintendent Name Role Phone Bobby Headley MD Primary Care Provider [phone] Encounter Details Date Type Department Care Team (Late Contact Info) Description 11/21/2017 Orders Only Radiation Oncology at [address] [phone] Lidia Reno RN Malignant neoplasm of prostate [...] Department Care Team (Late Contact Info) Description 09/26/2023 8:30 AM EDT Infusion Hematology Oncology at [address] [phone] 10/03/2023 9:00 AM EDT Office Visit Hematology/Oncology at [address] [phone] Adrianne Ramon MD [facility] DR HEMATOLOGY [place] [address] Yael Merlos, DELIVERY DRIVER [facility] [place] [address] 10/03/2023 9:30 AM EDT Infusion Hematology Oncology at [address] [phone] 10/10/2023 8:30 AM EDT Infusion Hematology Oncology at [address] [phone] 10/10/2023 2:45 PM EDT Appointment XRay at [address] [place] [address] Micha Givens Jr., MD [facility] [place] [address] 10/10/2023 3:00 PM EDT Appointment Non[place] [address] 10/10/2023 3:30 PM EDT Appointment [place] [address] 10/11/2023 8:30 AM EDT Infusion Hematology Oncology at [address] [phone] documented as of this encounter Visit Diagnoses Diagnosis Malignant neoplasm of prostate documented in this encounter Care Teams Mine Engineering Superintendent Relationship Specialty Start Date End Date Bobby Headley MD [address] [place] [address] PCP - General 01/29/14 11/28/17 documented as of this encounter
--- OUTSIDE RECORDS SUMMARY | 2023-09-26 02:50 | XMS_ITS | Encounter Summary ---
[place] [address] Care Team Providers Care Social Worker Assistant Name Role Phone Frederick Meade MD Primary Care Provider [phone] Encounter Details Date Type Department Care Team (Late st Contact Info) Description 03/17/2019 10:00 AM EST Office Visit Radiation Oncology at [address] [phone] Nitin Stauffer MD [address] [place] [address] DR RADIATION ONCOLOGY [place], [place] [id number] Malignant neoplasm of prostate Social History Tobacco [...] 03/17/19 Nitin Stauffer MD, MS Radiation Oncology [facility] [phone] (paging continuous miner operator helper) Pager #[phone] Patient ID: Cheo Freire is a 64 [...] totally confined to bed or chair IMPRESSION/PLAN manager long term care effects from radiotherapy: Biochemically and clinically DAVE. No significant moth exterminator adverse effects from RT/ADT. Followup: Given persistently [...] minute visit was spent with the patient [id number] reviewing his interval medical history and answering questions related to his prostate cancer. documented in this encounter Plan of Treatment Upcoming Encounters Date Type Department Care Team (Late st Contact Info) Description 09/26/2023 8:30 AM EDT Infusion Hematology Oncology at [address] [phone] 10/03/2023 9:00 AM EDT Office Visit Hematology/Oncology at [address] [phone] Adrianne Ramon MD [facility] HEMATOLOGY AND [place] [address] Yael Merlos APRN [facility] HEMATOLOGY [place] [address] 10/03/2023 9:30 AM EDT Infusion Hematology Oncology at [address] [phone] 10/10/2023 8:30 AM EDT Infusion Hematology Oncology at [address] [phone] 10/10/2023 2:45 PM EDT Appointment XRay at [address] [place] [address] Micha Givens Jr., MD [facility] HEMATOLOGY AND [place] [address] 10/10/2023 3:00 PM EDT Appointment Non-[place]vasive [place] [address] 10/10/2023 3:30 PM EDT Appointment [place] [address] 10/11/2023 8:30 AM EDT Infusion Hematology Oncology at [address] [phone] documented as of this encounter Visit Diagnoses Diagnosis Malignant neoplasm of prostate documented in this encounter Care Teams Social Worker Assistant Relationship Specialty Start Date End Date Frederick Meade MD [address] [place] [address] PCP - General Family Medicine 11/29/17 documented as of this encounter
--- OUTSIDE RECORDS SUMMARY | 2023-09-26 02:50 | XMS_ITS | Encounter Summary ---
Author Organization [facility] [place] [address] Care Team Providers Care Enamel Cracker Name Role Phone Frederick Meade MD Primary Care Provider [phone] Reason for Referral * Consultation (Routine) - Closed Specialty Diagnoses / Procedures Referred By Contac t Referred To Contact Hematology and Oncology Diagnoses Diffuse large B-cell lymphoma, unspecified body region Lg Ramírez MD [address] [place] [address] [address] [facility] Hem Onc Office [address] [place] [phone] Referral ID Status Reason Start Date Expiration Date V isits Requested Visits Authorized [id number] Closed Consult, Test & Treat 10/10/2022 10/10/2023 1 1 Encounter Details Date Type Department Care Team (Late st Contact Info) Description 10/10/2022 Transcribe Orders eDH Incoming Referrals [phone] Lg Ramírez MD [address] [place] [phone] Diffuse large B-cell lymphoma, unspecified body region [...] AM EDT Infusion Hematology Oncology at [address] [phone] 10/03/2023 9:00 AM EDT Office Visit Hematology/Oncology at [address] [phone] Adrianne Ramon MD [facility] [place] [address] Yael Mrelos, AQUATIC ECOLOGIST [facility] HEMATOLOGY [place] [address] 10/03/2023 9:30 AM EDT Infusion Hematology Oncology at [address] [phone] 10/10/2023 8:30 AM EDT Infusion Hematology Oncology at [address] [phone] 10/10/2023 2:45 PM EDT Appointment XRay at [address] [place] [address] Micha Givens Jr., MD [facility] HEMATOLOGY [place] [address] 10/10/2023 3:00 PM EDT Appointment Non-[place]vasive [place] [address] 10/10/2023 3:30 PM EDT Appointment [place] [address] 10/11/2023 8:30 AM EDT Infusion Hematology Oncology at [address] [phone] Scheduled Referrals Name Type Priority Associated Diagnoses Orde r Schedule Referral to Hematology and Oncology Outpatient Referral Routine Diffuse large B-cell lymphoma, unspecified body region Ordered: 10/10/2022 documented as of this encounter Visit Diagnoses Diagnosis Diffuse large B-cell lymphoma, unspecified body region documented in this encounter Care Teams Enamel Cracker Relationship Specialty Start Date End Date Frederick Meade MD [address] [place] [address] [address] [place] [address] PCP - General Family Medicine 11/29/17 documented as of this encounter
--- OUTSIDE RECORDS SUMMARY | 2023-09-26 02:50 | XMS_ITS | Encounter Summary ---
Author Organization [facility] [place] [address] Care Team Providers Care Measurement Technician Name Role Phone Frederick Meade MD Primary Care Provider [phone] Encounter Details Date Type Department Care Team (Latest Contact Info) Description 09/22/2022 12:50 AM EDT Ancillary [place] [phone] Thierry Ruiz MD [facility] [place] [address] Nasopharyngeal mass Social History Tobacco Use Types [...] AM EDT Infusion Hematology Oncology at [address] [phone] 10/03/2023 9:00 AM EDT Office Visit Hematology/Oncology at [address] [phone] Adrianne Ramon MD [facility] HEMATOLOGY [place] [address] Yael Merlos, HPLC CHEMIST [facility] HEMATOLOGY [place] [address] 10/03/2023 9:30 AM EDT Infusion Hematology Oncology at [address] [phone] 10/10/2023 8:30 AM EDT Infusion Hematology Oncology at [address] [phone] 10/10/2023 2:45 PM EDT Appointment XRay at [address] [place] [address] Micha Givens Jr., MD [facility] HEMATOLOGY [place] [address] 10/10/2023 3:00 PM EDT Appointment Non-[place]vasive [place] [address] 10/10/2023 3:30 PM EDT Appointment [place] [address] 10/11/2023 8:30 AM EDT Infusion Hematology Oncology at [address] [phone] documented as of this encounter Procedures Procedure [...] questions please contact the health home care giver that requested your imaging first. ? Narrative 09/22/2022 3:13 PM EDT EXAMINATION: REQUEST FOR 2ND READ CT NECK CLINICAL HISTORY: Nasopharyngeal fluid collection vs infected node, retropharyngeal adenopathy, BOT fullness, RIGHT thyroid lesion; Sending Institution [facility]; Date of exam 09/21/2022; I believe a [...] BOT fullness, RIGHT thyroid lesion; Sending Institution [facility]; Date of exam 09/21/2022; I believe a [...] have questions please contactthe health home care giver that requested your imaging first. Thierry Ruiz MD IMG OUTSIDE INTERPRE TATION ORDERABLES documented in this encounter Visit Diagnoses Diagnosis Nasopharyngeal mass Unspecified disease of pharynx documented in this encounter Care Teams Measurement Technician Relationship Specialty Start Date End Date Frederick Meade MD [address] [place] [address] [facility] [address] [place] [address] PCP - General Family Medicine 11/29/17 documented as of this encounter
--- OUTSIDE RECORDS SUMMARY | 2023-09-26 02:50 | XMS_ITS | Encounter Summary ---
[place] [address] Care Team Providers Care Director Of Integrated Marketing Name Role Phone Frederick Meade MD Primary Care Provider [phone] Reason for Visit * Reason Comments Radiation Follow-up prostate cancer Encounter Details Date Type Department Care Team (Late st Contact Info) Description 08/21/2018 9:00 AM EDT Office Visit Radiation Oncology at [address] [phone] Anna Carr [address] [place] [address] Malignant neoplasm of prostate Social [...] 07/16/2018-- WBC= 6.9, RBC= 3.71, HGB=8, HCT=28.5, IHIH=003, FERRITIN= 7 (L) Date PSA Testosterone (normal [...] prostate cancer with pretreatment PSA of 5.4 [place] 4+3=7. He was treated with external beam [...] offered biopsy which was performed 09/01/14, demonstrating [place] 4+ 3 disease in a single core at the right apex. Forty-five percent of that core did appear to be involved. Perineural invasion was not seen. Pathology had been reviewed at [facility]. He did have a prolonged discussion [...] the prostate Field orientation: Dynamic arc VMAT Dope Worker Target Coverage (70Gy isodose line indicated): Hormone [...] Biopsy 09/01/2014 Volume in cc 15 cc [place] grade/score a+b=c 4+3=7-- intermediate risk prostate cancer [...] on file Occupational History ??? 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 Financial resource strain: [...] file Gets together: Not on file Attends latter-day service: Not on file Active member of [...] or finances. He is part of a [employer] league and loves to bowl two to [...] Visit from 08/21/2018 in Radiation Oncology at [facility] Weight 94.9 kg (209 lb 4.8 oz) [...] 07/16/2018-- WBC= 6.9, RBC= 3.71, HGB=8, HCT=28.5, XMMM=838, FERRITIN= 7 (L) Date PSA Testosterone (normal [...] AM EDT Infusion Hematology Oncology at [address] [phone] 10/03/2023 9:00 AM EDT Office Visit Hematology/Oncology at [address] [phone] Adrianne Ramon MD [facility] DR HEMATOLOGY [place] [address] Yael Merlos, KARLA [facility] DR HEMATOLOGY [place] [address] 10/03/2023 9:30 AM EDT Infusion Hematology Oncology at [address] [phone] 10/10/2023 8:30 AM EDT Infusion Hematology Oncology at [address] [phone] 10/10/2023 2:45 PM EDT Appointment XRay at [address] [place] [address] Micha Givens Jr., MD [facility] HEMATOLOGY [place] [address] 10/10/2023 3:00 PM EDT Appointment Non-[place] [address] 10/10/2023 3:30 PM EDT [place] [address] 10/11/2023 8:30 AM EDT Infusion Hematology Oncology at [address] [phone] documented as of this encounter Visit Diagnoses Diagnosis Malignant neoplasm of prostate documented in this encounter Care Teams Director Of Integrated Marketing Relationship Specialty Start Date End Date Frederick Meade MD [address] [place] [address] [address] PCP - General Family Medicine 11/29/17 documented as of this encounter
--- OUTSIDE RECORDS SUMMARY | 2023-09-26 02:51 | XMS_ITS | Encounter Summary ---
[place] [address] Care Team Providers Care Set Illustrator Name Role Phone Bobby Headley MD Primary Care Provider [phone] Encounter Details Date Type Department Care Team (Late st Contact Info) Description 01/07/2015 8:00 AM EST Office Visit Radiation Oncology at [address] [phone] Nitin Stauffer MD [address] [place] [address] DR RADIATION ONCOLOGY [place], [place] [phone] Malignant neoplasm of prostate Social History Tobacco [...] Uncontrollable bleeding A Radiation Oncology doctor is secretary board of commissioners after our normal hours and on weekends. To call for urgent medical issues from radiation treatments that can not wait until normal business hours, please call and have the door operator page the Radiation Oncologist secretary board of commissioners. Nitin Ramirez MD documented in this encounter Progress Notes * Nitin Stauffer MD - 01/07/2015 8:02 AM EST [facility] On Treatment Visit Patient ID: Cheo [...] AM EDT Infusion Hematology Oncology at [address] [phone] 10/03/2023 9:00 AM EDT Office Visit Hematology/Oncology at [address] [phone] Adrianne Ramon MD [facility] HEMATOLOGY [place] [address] Yael Merlos APRN [facility] HEMATOLOGY [place] [address] 10/03/2023 9:30 AM EDT Infusion Hematology Oncology at [address] [phone] 10/10/2023 8:30 AM EDT Infusion Hematology Oncology at [address] [address] 10/10/2023 2:45 PM EDT Appointment XRay at [address] [place] [address] Micha Givens Jr., MD [facility] DR HEMATOLOGY [place] [address] 10/10/2023 3:00 PM EDT Appointment Non-[place]vasive [place] [address] 10/10/2023 3:30 PM EDT Appointment [place] [address] 10/11/2023 8:30 AM EDT Infusion Hematology Oncology at [address] [phone] documented as of this encounter Visit Diagnoses Diagnosis Malignant neoplasm of prostate documented in this encounter Care Teams Set Illustrator Relationship Specialty Start Date End Date Bobby Headley MD [address] [place] [address] PCP - General 01/29/14 11/28/17 documented as of this encounter
--- OUTSIDE RECORDS SUMMARY | 2023-09-26 02:51 | XMS_ITS | Encounter Summary ---
[place] [address] Care Team Providers Care Director Of Testing Name Role Phone Bobby Headley MD Primary Care Provider [phone] Encounter Details Date Type Department Care Team (Late st Contact Info) Description 12/24/2014 8:15 AM EST Office Visit Radiation Oncology at [address] [phone] Nitin Stauffer MD [address] [place] [address] DR RADIATION ONCOLOGY [place], [place] [id number] Cancer of prostate with intermediate recurrence risk [...] Uncontrollable bleeding A Radiation Oncology doctor is hospital receptionist after our normal hours and on weekends. To call for urgent medical issues from radiation treatments that can not wait until normal business hours, please call and have the press operator automatic page the Radiation Oncologist hospital receptionist. Nitin Ramirez MD documented in this encounter Progress Notes * Nitin Stauffer MD - 12/24/2014 8:16 AM EST [facility] [...] AM EDT Infusion Hematology Oncology at [address] [phone] 10/03/2023 9:00 AM EDT Office Visit Hematology/Oncology at [address] [phone] Adrianne Ramon MD [facility] [place] [address] Yael Merlos, KARLA [facility] [place] [address] 10/03/2023 9:30 AM EDT Infusion Hematology Oncology at [address] [address] 10/10/2023 8:30 AM EDT Infusion Hematology Oncology at [address] [phone] 10/10/2023 2:45 PM EDT Appointment XRay at [address] [place] [address] Micha Givens Jr., MD [facility] HEMATOLOGY [place] [address] 10/10/2023 3:00 PM EDT Appointment Non-[place]vasive [place] [address] 10/10/2023 3:30 PM EDT Appointment [place] [address] 10/11/2023 8:30 AM EDT Infusion Hematology Oncology at [address] [phone] documented as of this encounter Visit Diagnoses Diagnosis Cancer of prostate with intermediate recurrence risk (stage T2b-c or [place] 7 or PSA 10-20) Malignant neoplasm of prostate documented in this encounter Care Teams Director Of Testing Relationship Specialty Start Date End Date Bobby Headley MD [address] [place] [address] PCP - General 01/29/14 11/28/17 documented as of this encounter
--- OUTSIDE RECORDS SUMMARY | 2023-09-26 02:51 | XMS_ITS | Encounter Summary ---
Author Organization [facility] [place] [address] Care Team Providers Care Pipe Fitter Welding Name Role Phone Bobby Headley MD Primary Care Provider [phone] Encounter Details Date Type Department Care Team (Late st Contact Info) Description 12/30/2013 Orders [place] [address] Micha Nunez MD [facility] [place] [address] Social History Tobacco Use Types Packs/Day Years [...] AM EDT Infusion Hematology Oncology at [address] [phone] 10/03/2023 9:00 AM EDT Office Visit Hematology/Oncology at [address] [phone] Adrianne Ramon MD [facility] HEMATOLOGY [place] [address] Yael Merlos, KARLA [facility] [place] [address] 10/03/2023 9:30 AM EDT Infusion Hematology Oncology at [address] [phone] 10/10/2023 8:30 AM EDT Infusion Hematology Oncology at [address] [phone] 10/10/2023 2:45 PM EDT Appointment XRay at [address] [place] [address] Micha Givens Jr., MD [facility] HEMATOLOGY [place] [address] 10/10/2023 3:00 PM EDT Appointment Non-[place] [address] 10/10/2023 3:30 PM EDT Appointment [place] [address] 10/11/2023 8:30 AM EDT Infusion Hematology Oncology at [address] [phone] documented as of this encounter [...] on filedocumented in this encounter Care Teams Pipe Fitter Welding Relationship Specialty Start Date End Date Bobby Headley MD [address] [place] [address] PCP - General 01/29/14 11/28/17 documented as of this encounter
--- OUTSIDE RECORDS SUMMARY | 2023-09-26 02:51 | XMS_ITS | Encounter Summary ---
[place] [address] Care Team Providers Care Unit Operator Name Role Phone Bobby Headley MD Primary Care Provider Encounter Details Date Type Department Care Team (Latest Contact Info) Description 10/19/2014 9:57 AM EDT - 10/19/2014 11:59 PM EDT Hospital [place] [phone] Nitin Stauffer MD [address] [place] [address] [place] [address] Cancer of prostate with intermediate [...] Date aspirin 81 mg Tablet, Chewable Take 325 mg by mouth daily. Ibuprofen 200 mg Capsule Take by mouth 4 times daily as needed. Reported on 05/24/2016 dexamethasone (DECADRON) 2 mg TabletIndications:Malig nant neoplasm [...] AM EDT Infusion Hematology Oncology at [address] [address] 10/03/2023 9:00 AM EDT Office Visit Hematology/Oncology at [address] [address] [facility] DR HEMATOLOGY [place] [address] [facility] HEMATOLOGY [place] [address] 10/03/2023 9:30 AM EDT Infusion Hematology Oncology at [address] [address] 10/10/2023 8:30 AM EDT Infusion Hematology Oncology at [address] [address] 10/10/2023 2:45 PM EDT Appointment XRay at [address] [place] [address] Micha Givens Jr., MD [facility] HEMATOLOGY [place] [address] 10/10/2023 3:00 PM EDT Appointment Non-Invasive [place] [address] 10/10/2023 3:30 PM EDT Appointment [place] [address] 10/11/2023 8:30 AM EDT Infusion Hematology Oncology at [address] [phone] documented as of this encounter Procedures Procedure Name Priority Date/Time Associated Diagnosis Comments MRI PELVIS SOFT TISSUE (GI POT RELINER) WWO CONTRAST Routine 10/19/2014 11:54 AM EDT [...] 2. Staging. Date of sextant biopsy: 09/24/2014 [place] score: 4+3 TECHNIQUE: Multiparametric MRI of the [...] reviewed by the attending Nitin Stauffer MD [facility] MRI ORDERABLES documented in this encounter Visit Diagnoses Diagnosis Cancer of prostate with intermediate recurrence risk (stage T2b-c or [place] 7 or PSA 10-20) Malignant neoplasm of [...] mLs documented in this encounter Care Teams Unit Operator Relationship Specialty Start Date End Date Bobby Headley MD [address] [place] [address] PCP - General 01/29/14 11/28/17 documented as of this encounter
--- OUTSIDE RECORDS SUMMARY | 2023-09-26 02:51 | XMS_ITS | Encounter Summary ---
[place] [address] Care Team Providers Care Real Estate Rental Agent Name Role Phone Bobby Headley MD Primary Care Provider [phone] Encounter Details Date Type Department Care Team (Late st Contact Info) Description 09/29/2014 12:00 PM EDT Office Visit Radiation Oncology at [address] [phone] Nitin Stauffer MD [address] [place] [address] DR RADIATION ONCOLOGY [place], [place] [phone] Cancer of prostate with intermediate recurrence risk [...] on three things: your PSA(the blood test), [place] score (how aggressive the prostate cancer looked [...] slowed by medications such as Viagra. Another halfway but potentially serious side effect is the [...] a prostate MRI which we do at [facility], that allows us to better see [...] [facility] scan here in our [facility] clinic, typically 1-2 weeks after the placement [...] do not hesitate to call me at [phone] with any other questions or concerns you have. Although our normal business hours are M-F 8AM-5PM, I am on- site here in [facility] Wednesdays through Fridays. On Mondays and Tuesdays, your nurse Christine Fernando will be here and can answer any questionsyou might have, or help you get in touch with me. A Radiation Oncology doctor is also director decision support after our normal hours and on weekends for urgent questions or concerns related to radiation treatments that can not wait until normal business hours. To reach the on-call doctor after-hours, just call and have the switchboard operator receptionist page the Radiation Oncologist director decision support. And, as always, if you experience any [...] injury 7. Uncontrollable bleeding Nitin Ramirez MD Library Helpernatural fabricator Radiation Oncology [facility] documented in this encounter Progress Notes * Nitin Stauffer MD - 09/29/2014 12:00 PM EDT Radiation Oncology New Patient Consultation 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 Estimated travel time by the patient to [facility] is 10 minutes, one-way. KPS: 100 Smoking: [...] with either Dr. Nunezor Dr. Stubbs at [facility]. However, he was quite clear that the potential side effects of urinary incontinence or erectile dysfunction are completely unacceptable to him. Given the primary [place] 4 disease, I discussed the utility of [...] yes ADVANCED DIRECTIVE: yes, on file at [facility] PAIN ASSESSMENT: [0] out of 10 *eD-H [...] AM EDT Infusion Hematology Oncology at [address] [address] 10/03/2023 9:00 AM EDT Office Visit Hematology/Oncology at [address] [address] Adrianne Ramon MD [facility] [place] [address] Yael Merlos, CREAM SEPARATOR OPERATOR [facility] [place] [address] 10/03/2023 9:30 AM EDT Infusion Hematology Oncology at [address] [address] 10/10/2023 8:30 AM EDT Infusion Hematology Oncology at [address] [address] 10/10/2023 2:45 PM EDT Appointment XRay at [address] [place] [address] Micha Givens Jr., MD [facility] DR [place] [address] 10/10/2023 3:00 PM EDT Appointment Non-[place] [address] 10/10/2023 3:30 PM EDT Appointment [place] [address] 10/11/2023 8:30 AM EDT Infusion Hematology Oncology at [address] [phone] documented as of this encounter Procedures Procedure [...] prostate documented in this encounter Care Teams Real Estate Rental Agent Relationship Specialty Start Date End Date Bobby Headley MD [address] [place] [address] PCP - General 01/29/14 11/28/17 documented as of this encounter
--- OUTSIDE RECORDS SUMMARY | 2023-09-26 02:51 | XMS_ITS | Encounter Summary ---
[place] [address] Care Team Providers Care Armhole Presser Name Role Phone Bobby Headley MD Primary Care Provider [phone] Encounter Details Date Type Department Care Team (Late st Contact Info) Description 12/10/2014 11:45 AM EDT Office Visit Radiation Oncology at [address] [phone] Nitin Stauffer MD [address] [place] [address] DR RADIATION ONCOLOGY [place], [place] [phone] Cancer of prostate with intermediate recurrence risk [...] Uncontrollable bleeding A Radiation Oncology doctor is pole frame construction worker after our normal hours and on weekends. To call for urgent medical issues from radiation treatments that can not wait until normal business hours, please call and have the bituminous paving machine operator page the Radiation Oncologist pole frame construction worker. Nitin Ramirez MD documented in this encounter Progress Notes * Nitin Stauffer MD - 12/10/2014 11:08 AM EDT [facility] On Treatment Visit Patient ID: Cheo Freire [...] AM EDT Infusion Hematology Oncology at [address] [address] 10/03/2023 9:00 AM EDT Office Visit Hematology/Oncology at [address] [address] Adrianne Ramon MD [facility] DR HEMATOLOGY [place] [address] Yael Merlos APRN [facility] DR HEMATOLOGY [place] [address] 10/03/2023 9:30 AM EDT Infusion Hematology Oncology at [address] [address] 10/10/2023 8:30 AM EDT Infusion Hematology Oncology at [address] [address] 10/10/2023 2:45 PM EDT Appointment XRay at [address] [place] [address] Micha Givens Jr., MD [facility] HEMATOLOGY [place] [address] 10/10/2023 3:00 PM EDT Appointment [place] [address] 10/10/2023 3:30 PM EDT Appointment [place] [address] 10/11/2023 8:30 AM EDT Infusion Hematology Oncology at [address] [address] documented as of this encounter Visit Diagnoses Diagnosis Cancer of prostate with intermediate recurrence risk (stage T2b-c or [place] 7 or PSA 10-20) Malignant neoplasm of prostate documented in this encounter Care Teams Armhole Presser Relationship Specialty Start Date End Date Bobby Headley MD [address] [place] [address] PCP - General 01/29/14 11/28/17 documented as of this encounter
--- OUTSIDE RECORDS SUMMARY | 2023-09-26 02:51 | XMS_ITS | Encounter Summary ---
[place] [address] Care Team Providers Care Conference Planner Name Role Phone Bobby Headley MD Primary Care Provider [phone] Encounter Details Date Type Department Care Team (Late st Contact Info) Description 10/21/2014 11:00 AM EDT Ancillary Appointment Radiation Oncology at [address] [phone] Nitin Stauffer MD [address] [place] [address] DR RADIATION ONCOLOGY [place], [place] [id number] Social History Tobacco Use Types Packs/Day Years [...] do to help manage the side effects. Milling Machine Operator - They take the doctors radiation prescription [...] a well balanced diet is recommended. The automation engineering manager and nurse will inform you of any [...] - Sunday 8 AM to 5 PM [facility] phone# [phone] [facility] If you have questions about your [...] in injury A Radiation Oncology doctor is promotions executive after our normal hours and on weekends. To call for urgent medical issues from radiation treatments that can not wait until normal business hours, please call for either location and have the hoist operator page the Radiation Oncologist in call. documented in this encounter Progress Notes * Nitin Stauffer MD - 10/21/2014 11:16 AM EDT Simulation Note for External Beam Radiation Treatment Planning [facility] Bolivar Freire is a 64 y.o. year [...] of any short term side effects or intermediate complications of therapy. I anticipate his prescription [...] AM EDT Infusion Hematology Oncology at [address] [address] 10/03/2023 9:00 AM EDT Office Visit Hematology/Oncology at [address] [address] Adrianne Ramon MD [facility] [place] [address] Yael Merlos APRN [facility] [place] [address] 10/03/2023 9:30 AM EDT Infusion Hematology Oncology at [address] [address] 10/10/2023 8:30 AM EDT Infusion Hematology Oncology at [address] [phone] 10/10/2023 2:45 PM EDT Appointment XRay at [address] [place] [place] [address] Micha Givens Jr., MD [facility] HEMATOLOGY [place] [address] 10/10/2023 3:00 PM EDT Appointment [place] [phone] 10/10/2023 3:30 PM EDT Appointment [place] [address] 10/11/2023 8:30 AM EDT Infusion Hematology Oncology at [address] [phone] documented as of this encounter Visit Diagnoses Not on filedocumented in this encounter Care Teams Conference Planner Relationship Specialty Start Date End Date Bobby Headley MD [address] [place] [address] PCP - General 01/29/14 11/28/17 documented as of this encounter
--- OUTSIDE RECORDS SUMMARY | 2023-09-26 02:51 | XMS_ITS | Encounter Summary ---
[place] [address] Care Team Providers Care Sales And Merchandising Associate Name Role Phone Bobby Headley MD Primary Care Provider [phone] Reason for Visit * Reason Comments On Treatment Visit Encounter Details Date Type Department Care Team (Late st Contact Info) Description 12/03/2014 1:15 PM EDT Office Visit Radiation Oncology at [address] [phone] Nitin Stauffer MD [address] [place] [address] DR [place] [address] Cancer of prostate with intermediate recurrence risk (stage T2b-c or [place] 7 or PSA 10-20) Social History Tobacco [...] Uncontrollable bleeding A Radiation Oncology doctor is online editor after our normal hours and on weekends. To call for urgent medical issues from radiation treatments that can not wait until normal business hours, please call and have the boomswing operator page the Radiation Oncologist online editor. Nitin Ramirez MD documented in this encounter Progress Notes * Nitin Stauffer MD - 12/03/2014 1:14 PM EDT [facility] On Treatment Visit Patient ID: Cheo [...] AM EDT Infusion Hematology Oncology at [address] [address] 10/03/2023 9:00 AM EDT Office Visit Hematology/Oncology at [address] [address] Adrianne Ramon MD [facility] [place] [address] Yael Merlos APRN [facility] HEMATOLOGY [place] [address] 10/03/2023 9:30 AM EDT Infusion Hematology Oncology at [address] [address] 10/10/2023 8:30 AM EDT Infusion Hematology Oncology at [address] [address] 10/10/2023 2:45 PM EDT Appointment XRay at [address] [place] [address] Micha Givens Jr., MD [facility] DR [place] [address] 10/10/2023 3:00 PM EDT Appointment Non-[place] [address] 10/10/2023 3:30 PM EDT Appointment [place] [address] 10/11/2023 8:30 AM EDT Infusion Hematology Oncology at [address] [phone] documented as of this encounter Visit Diagnoses Diagnosis Cancer of prostate with intermediate recurrence risk (stage T2b-c or [place] 7 or PSA 10-20) Malignant neoplasm of prostate documented in this encounter Care Teams Sales And Merchandising Associate Relationship Specialty Start Date End Date Bobby Headley MD [address] [place] [address] PCP - General 01/29/14 11/28/17 documented as of this encounter
--- OUTSIDE RECORDS SUMMARY | 2023-09-26 02:51 | XMS_ITS | Encounter Summary ---
[place] [address] Care Team Providers Care Color Laboratory Technician Name Role Phone Bobby Headley MD Primary Care Provider [phone] Encounter Details Date Type Department Care Team (Late st Contact Info) Description 12/14/2016 3:45 PM EDT Office Visit Hematology/Oncology at [address] [phone] Nancy Stratton, CRITICAL SYSTEMS TECHNICIAN [address] [facility] [place] [address] Malignant neoplasm of prostate Social History Tobacco [...] this encounter Progress Notes * Nancy Stratton, CRITICAL SYSTEMS TECHNICIAN - 12/14/2016 3:45 PM EDT Images from [...] seen. Pathology had been reviewed here at [facility]. 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 Smoking [...] to their sporting events. He went to [place] last September to attend a [employer] andhad a great time. He feels he [...] prostate cancer with pretreatment PSA of 5.4 [place]buck 4+3=7. He was treated with external beam [...] concerns in the interim. Nancy Stratton, MSN, [employer], AOCN Hematology/Oncology Nurse Practitioner [place], [place] [phone] . documented in this encounter Plan of Treatment Upcoming Encounters Date Type Department Care Team (Late st Contact Info) Description 09/26/2023 8:30 AM EDT Infusion Hematology Oncology at [address] [address] 10/03/2023 9:00 AM EDT Office Visit Hematology/Oncology at [address] [phone] Adrianne Ramon MD [facility] DR [place] [address] Yael Merlos APRN [facility] [place] [address] 10/03/2023 9:30 AM EDT Infusion Hematology Oncology at [address] [address] 10/10/2023 8:30 AM EDT Infusion Hematology Oncology at [address] [address] 10/10/2023 2:45 PM EDT Appointment XRay at [address] [place] [address] Micha Givens Jr., MD [facility] HEMATOLOGY [place] [address] 10/10/2023 3:00 PM EDT Appointment Non-[place]vasive [place] [address] 10/10/2023 3:30 PM EDT Appointment [place] [address] 10/11/2023 8:30 AM EDT Infusion Hematology Oncology at [address] [address] documented as of this encounter Visit Diagnoses Diagnosis Malignant neoplasm of prostate documented in this encounter Care Teams Color Laboratory Technician Relationship Specialty Start Date End Date Bobby Headley MD [address] [place] [address] PCP - General 01/29/14 11/28/17 documented as of this encounter
--- OUTSIDE RECORDS SUMMARY | 2023-09-26 02:51 | XMS_ITS | Encounter Summary ---
[place] [address] Care Team Providers Care Carousel Operator Name Role Phone Bobby Headley MD Primary Care Provider [phone] Encounter Details Date Type Department Care Team (Late st Contact Info) Description 12/02/2014 Notes Only Radiation Oncology at [address] [phone] Shelley Cason MSW OFFICE OF CARE MANAGEMENT [...] Resources: Pt agreeable to participate in the [place] [facility]. Provided him with a brochure and will make outreach to Arlyn Gong RN, Chronic Heavy Equipment Service Manager, [facility]. Adjustment to Illness/Mental Health Issues: Pt [...] AM EDT Infusion Hematology Oncology at [address] [address] 10/03/2023 9:00 AM EDT Office Visit Hematology/Oncology at [address] [address] Adrianne Ramon MD [facility] HEMATOLOGY [place] [address] Yael Merlos, GLOVE PARTS INSPECTOR [facility] [place] [address] 10/03/2023 9:30 AM EDT Infusion Hematology Oncology at [address] [address] 10/10/2023 8:30 AM EDT Infusion Hematology Oncology at [address] [address] 10/10/2023 2:45 PM EDT Appointment XRay at [address] [place] [address] Micha Givens Jr., MD [facility] [place] [address] 10/10/2023 3:00 PM EDT Appointment Non-Invasive [place] [address] 10/10/2023 3:30 PM EDT [place] [address] 10/11/2023 8:30 AM EDT Infusion Hematology Oncology at [address] [phone] documented as of this encounter Visit Diagnoses Not on filedocumented in this encounter Care Teams Carousel Operator Relationship Specialty Start Date End Date Bobby Headley MD [address] [place] [address] PCP - General 01/29/14 11/28/17 documented as of this encounter
--- OUTSIDE RECORDS SUMMARY | 2023-09-26 02:51 | XMS_ITS | Encounter Summary ---
[place] [address] Care Team Providers Care Assembler Dielectric Heater Name Role Phone Bobby Headley MD Primary Care Provider [phone] Encounter Details Date Type Department Care Team (Late st Contact Info) Description 10/14/2014 8:30 AM EDT Procedure visit Radiation Oncology at [address] [phone] Nitin Stauffer MD [address] [place] [address] DR RADIATION ONCOLOGY [place], [place] [id number] Cancer of prostate with intermediate recurrence risk (stage T2b-c or [place] 7 or PSA 10-20) Discharge Disposition: Home [...] to undergo MRI of the prostate at [facility]. * Christine Fernando RN - 10/14/2014 8:26 AM EDT Radiation Oncology Procedure Nursing Note Procedure: Cold coil implant by Dr Stauffre Time of patient arrival to clinic: See [...] needed for mild discomfort. He has the [facility] phone number and verbalized understanding to ask for the trade union official radiation oncologist if he needs to after clinic hours. Time of discharge: 10:00 vital signs stable,and gait steady and dressed himself. Dr Stauffer saw him briefly before discharge. documented in this encounter Plan of Treatment Upcoming Encounters Date Type Department Care Team (Late st Contact Info) Description 09/26/2023 8:30 AM EDT Infusion Hematology Oncology at [address] [address] 10/03/2023 9:00 AM EDT Office Visit Hematology/Oncology at [address] [address] Adrianne Ramon MD [facility] HEMATOLOGY [place] [address] Yael Merlos APRN [facility] HEMATOLOGY [place] [address] 10/03/2023 9:30 AM EDT Infusion Hematology Oncology at [address] [address] 10/10/2023 8:30 AM EDT Infusion Hematology Oncology at [address] [phone] 10/10/2023 2:45 PM EDT Appointment XRay at [address] [place] [address] Micha Givens Jr., MD [facility] HEMATOLOGY [place] [address] 10/10/2023 3:00 PM EDT Appointment Non[place] [address] 10/10/2023 3:30 PM EDT Appointment [place] [address] 10/11/2023 8:30 AM EDT Infusion Hematology Oncology at [address] [phone] documented as of this encounter Visit Diagnoses Diagnosis Cancer of prostate with intermediate recurrence risk (stage T2b-c or [place] 7 or PSA 10-20) Malignant neoplasm of prostate documented in this encounter Care Teams Assembler Dielectric Heater Relationship Specialty Start Date End Date Bobby Headley MD [address] [place] [address] PCP - General 01/29/14 11/28/17 documented as of this encounter
--- OUTSIDE RECORDS SUMMARY | 2023-09-26 02:51 | XMS_ITS | Encounter Summary ---
[place] [address] Care Team Providers Care Automotive Vehicle Inspector Name Role Phone Bobby Headley MD Primary Care Provider [phone] Encounter Details Date Type Department Care Team (Latest Contact Info) Description 01/04/2015 Unscheduled Encounter Radiation Oncology at [address] [phone] Lidia Reno, RN Malignant neoplasm of prostate [...] AM EDT Infusion Hematology Oncology at [address] [phone] 10/03/2023 9:00 AM EDT Office Visit Hematology/Oncology at [address] [address] [facility] HEMATOLOGY [place] [address] [facility] [place] [address] 10/03/2023 9:30 AM EDT Infusion Hematology Oncology at [address] [address] 10/10/2023 8:30 AM EDT Infusion Hematology Oncology at [address] [address] 10/10/2023 2:45 PM EDT Appointment XRay at [address] [place] [address] Micha Givens Jr., MD [facility] HEMATOLOGY [place] [address] 10/10/2023 3:00 PM EDT Appointment Non-[place] [address] 10/10/2023 3:30 PM EDT Appointment [place] [address] 10/11/2023 8:30 AM EDT Infusion Hematology Oncology at [address] [address] documented as of this encounter Visit Diagnoses Diagnosis Malignant neoplasm of prostate documented in this encounter Care Teams Automotive Vehicle Inspector Relationship Specialty Start Date End Date Bobby Headley MD [address] [place] [address] PCP - General 01/29/14 11/28/17 documented as of this encounter
--- OUTSIDE RECORDS SUMMARY | 2023-09-26 02:51 | XMS_ITS | Encounter Summary ---
Author Organization [facility] [place] [address] Care Team Providers Care Latex Ribbon Machine Operator Name Role Phone Bobby Headley MD Primary Care Provider [phone] Encounter Details Date Type Department Care Team (Late st Contact Info) Description 03/01/2016 11:00 AM EST Office Visit Hematology/Oncology at [address] [phone] Annika Quezada APRN [facility] [place] [address] Prostate cancer Social History Tobacco Use Types [...] elevated at 5.4 with only 9% free. [place] with Dr. Vergara July 2014 who offered biopsy which was performed 09/01/14, demonstrating Gleason4 + 3 disease in a single core at the right apex. Forty-five percent of that core did appear to be involved. Perineural invasion was not seen. Pathology had been reviewed here at [facility]. 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 Smoking [...] to their sporting events. He went to [place] in September to attend a [employer] tournament and had a great time. He [...] AM EDT Infusion Hematology Oncology at [address] [address] 10/03/2023 9:00 AM EDT Office Visit Hematology/Oncology at [address] [address] Adrianne Ramon MD [facility] DR [place] [address] Yael Merlos APRN [facility] [place] [address] 10/03/2023 9:30 AM EDT Infusion Hematology Oncology at [address] [address] 10/10/2023 8:30 AM EDT Infusion Hematology Oncology at [address] [address] 10/10/2023 2:45 PM EDT Appointment XRay at [address] [place] [address] Micha Givens Jr., MD [facility] HEMATOLOGY [place] [address] 10/10/2023 3:00 PM EDT Appointment Non-[place] [address] 10/10/2023 3:30 PM EDT [place] [address] 10/11/2023 8:30 AM EDT Infusion Hematology Oncology at [address] [address] documented as of this encounter Visit Diagnoses Diagnosis Prostate cancer Malignant neoplasm of prostate documented in this encounter Care Teams Latex Ribbon Machine Operator Relationship Specialty Start Date End Date Bobby Headley MD [address] [place] [address] PCP - General 01/29/14 11/28/17 documented as of this encounter
--- OUTSIDE RECORDS SUMMARY | 2023-09-26 02:51 | XMS_ITS | Encounter Summary ---
Author Organization [facility] [place] [address] Care Team Providers Care Cylinder Devalver Name Role Phone Bobby Headley MD Primary Care Provider [phone] Encounter Details Date Type Department Care Team (Latest Contact Info) Description 01/07/2015 Unscheduled Encounter Hematology/Oncology at [address] [phone] [facility] [place] [address] Dietary counseling and surveillance; Dietary counseling Social [...] Narvaez RD - 01/07/2015 8:45 AM EST [facility] Initial Dietitian Assessment Seen By: Gay Narvaez MS, RD, DERRICK CAR OPERATOR, LD Referred by: Dr. Stauffer Reason for [...] AM EDT Infusion Hematology Oncology at [address] [phone] 10/03/2023 9:00 AM EDT Office Visit Hematology/Oncology at [address] [address] Adrianne Ramon MD [facility] HEMATOLOGY [place] [address] Yael Merlos APRN [facility] HEMATOLOGY [place] [address] 10/03/2023 9:30 AM EDT Infusion Hematology Oncology at [address] [phone] 10/10/2023 8:30 AM EDT Infusion Hematology Oncology at [address] [address] 10/10/2023 2:45 PM EDT Appointment XRay at [address] [place] [address] Micha Givens Jr., MD [facility] HEMATOLOGY [place] [address] 10/10/2023 3:00 PM EDT Appointment Non-[place]vasive [place] [address] 10/10/2023 3:30 PM EDT Appointment [place] [address] 10/11/2023 8:30 AM EDT Infusion Hematology Oncology at [address] [phone] documented as of this encounter Visit Diagnoses Diagnosis Dietary counseling and surveillance Dietary surveillance and counseling Dietary counseling Dietary surveillance and counseling documented in this encounter Care Teams Cylinder Devalver Relationship Specialty Start Date End Date Bobby Headley MD [address] [place] [address] PCP - General 01/29/14 11/28/17 documented as of this encounter
--- OUTSIDE RECORDS SUMMARY | 2023-09-26 02:51 | XMS_ITS | Encounter Summary ---
Author [place] [address] Care Team Providers Care Manager Heavy Duty Name Role Phone Bobby Headley MD Primary Care Provider [phone] Encounter Details Date Type Department Care Team (Late st Contact Info) Description 10/15/2014 Telephone Radiation Oncology at [address] [phone] Christine Garcia RN Social History [...] Post-Procedure Phone Note Name: Cheo Freire A#: [id number] : 1950 Date/Time of Call: 10/15/2014 6:10 [...] YES NO x Comments/interventions: Section Radiation Oncology [facility] documented in this encounter Plan of Treatment Upcoming Encounters Date Type Department Care Team (Late st Contact Info) Description 09/26/2023 8:30 AM EDT Infusion Hematology Oncology at [address] [address] 10/03/2023 9:00 AM EDT Office Visit Hematology/Oncology at [address] [address] Adrianne Ramon MD [facility] HEMATOLOGY [place] [address] Yael Merlos, KARLA [facility] HEMATOLOGY [place] [address] 10/03/2023 9:30 AM EDT Infusion Hematology Oncology at [address] [address] 10/10/2023 8:30 AM EDT Infusion Hematology Oncology at [address] [address] 10/10/2023 2:45 PM EDT Appointment XRay at [address] [place] [address] Micha Givens Jr., MD [facility] H[place] [address] 10/10/2023 3:00 PM EDT Appointment Non-[place] [address] 10/10/2023 3:30 PM EDT Appointment [place] [address] 10/11/2023 8:30 AM EDT Infusion Hematology Oncology at [address] [address] documented as of this encounter Visit Diagnoses Not on filedocumented in this encounter Care Teams Manager Heavy Duty Relationship Specialty Start Date End Date Bobby Headley MD [address] [place] [address] PCP - General 01/29/14 11/28/17 documented as of this encounter
--- OUTSIDE RECORDS SUMMARY | 2023-09-26 02:51 | XMS_ITS | Encounter Summary ---
Author Organization [facility] [place] [address] Care Team Providers Care Annual Greenhouse Manager Name Role Phone Bobby Headley MD Primary Care Provider [phone] Encounter Details Date Type Department Care Team (Latest Contact Info) Description 10/05/2014 Unscheduled Encounter Radiation Oncology at [address] [phone] Christine Garcia, RN Malignant neoplasm [...] Prescriptions to get filled and things to crab picker from the pharmacy: Two Fleets Enema You [...] relax for the procedure.You will need a speedboat driver to take you home. ??? Change [...] any other concerns. Future Appointments: MRI at [facility]: 10/19 at 11:10 AM arrive at : Your CT simulation, planning session will be done at [facility]. 10/21 arrive at 10:30. You will see the nurse first for patient education .You will need a comfortably full bladder by 11:00 How to reach us: Radiation Oncology [facility] CHAD [place] [address] fax After office hours phone: [phone] - ask for radiation oncology doctor application security developer Radiation Oncology [address] [address] documented in this encounter Progress Notes * Christine Fernando RN - 10/05/2014 2:22 PM EDT Radiation Oncology Nurse Note [place], [place] See AVS for instructions provided to patient and his in preparation for Gold plaster die maker implant procedure scheduled for Sun10/14/14. Prescriptions for Cipro and Dexamethasone sent to [facility]. documented in this encounter Plan of Treatment Upcoming Encounters Date Type Department Care Team (Late st Contact Info) Description 09/26/2023 8:30 AM EDT Infusion Hematology Oncology at [address] [address] 10/03/2023 9:00 AM EDT Office Visit Hematology/Oncology at [address] [phone] Adrianne Ramon MD [facility] HEMATOLOGY [place] [address] Yael Merlos, KARLA [facility] HEMATOLOGY [place] [address] 10/03/2023 9:30 AM EDT Infusion Hematology Oncology at [address] [phone] 10/10/2023 8:30 AM EDT Infusion Hematology Oncology at [address] [phone] 10/10/2023 2:45 PM EDT Appointment XRay at [address] [place] [place] [address] Micha Givens Jr., MD [facility] HEMATOLOGY [place] [address] 10/10/2023 3:00 PM EDT Appointment [place] [address] 10/10/2023 3:30 PM EDT Appointment [place] [address] 10/11/2023 8:30 AM EDT Infusion Hematology Oncology at [address] [phone] documented as of this encounter Visit Diagnoses Diagnosis Malignant neoplasm of prostate documented in this encounter Care Teams Annual Greenhouse Manager Relationship Specialty Start Date End Date Bobby Headley MD [address] [place] [address] PCP - General 01/29/14 11/28/17 documented as of this encounter
--- OUTSIDE RECORDS SUMMARY | 2023-09-26 02:51 | XMS_ITS | Encounter Summary ---
Author Organization [facility] [place] [address] Care Team Providers Care Professor Of Engineering Name Role Phone Bobby Headley MD Primary Care Provider [phone] Encounter Details Date Type Department Care Team (Late st Contact Info) Description 05/24/2016 11:00 AM EDT Office Visit Hematology/Oncology at [address] [phone] Annika Quezada APRN [facility] [place] [address] Prostate cancer Social History Tobacco Use Types [...] original note were not included. Patient ID: Choe Freire is a 66 y.o. male with intermediate risk prostate cancer with pretreatment PSA of 5.4 [place] 4+3=7. He was treated with external beam [...] elevated at 5.4 with only 9% free. [place] with Dr. Vergara July 2014 who offered biopsy which was performed 09/01/14, demonstrating Gleason4 + 3 disease in a single core at the right apex. Forty-five percent of that core did appear to be involved. Perineural invasion was not seen. Pathology had been reviewed here at [facility]. 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 Smoking status: Former Smoker Packs/day: 1.00 Types: Cigarettes ??? Smokeless tobacco: Former User Quit date: 02/19/1986 Comment: started smoking in [employer] ??? Alcohol use 1.8 oz/week 3 Standard [...] to their sporting events. He went to [place] last September to attend a [employer] tournament andhad a great time. He feels [...] AM EDT Infusion Hematology Oncology at [address] [address] 10/03/2023 9:00 AM EDT Office Visit Hematology/Oncology at [address] [phone] Adrianne Ramon MD [facility] H[place]ATOLOGY [place] [address] Yael Merlos APRN [facility] DR HEMATOLOG[place] [address] 10/03/2023 9:30 AM EDT Infusion Hematology Oncology at [address] [address] 10/10/2023 8:30 AM EDT Infusion Hematology Oncology at [address] [address] 10/10/2023 2:45 PM EDT Appointment XRay at [address] [place] [address] Micha Givens Jr., MD [facility] HEMATOLOGY [place] [address] 10/10/2023 3:00 PM EDT Appointment Non[place] [address] 10/10/2023 3:30 PM EDT Appointment [place] [address] 10/11/2023 8:30 AM EDT Infusion Hematology Oncology at [address] [phone] documented as of this encounter Visit Diagnoses Diagnosis Prostate cancer Malignant neoplasm of prostate documented in this encounter Care Teams Professor Of Engineering Relationship Specialty Start Date End Date Bobby Headley MD [address] [place] [address] PCP - General 01/29/14 11/28/17 documented as of this encounter
--- OUTSIDE RECORDS SUMMARY | 2023-09-26 02:51 | XMS_ITS | Encounter Summary ---
Author Organization [facility] [place] [address] Care Team Providers Care Chargeback Analyst Name Role Phone Bobby Headley MD Primary Care Provider [phone] Encounter Details Date Type Department Care Team (Late st Contact Info) Description 09/28/2014 Abstract Radiation Oncology at [address] [phone] Chirstine Garcia RN Social History Tobacco Use Types [...] AM EDT Infusion Hematology Oncology at [address] [phone] 10/03/2023 9:00 AM EDT Office Visit Hematology/Oncology at [address] [phone] Adrianne Ramon MD [facility] H[place]ATOLOGY [place] [address] Yael Merlos, INTERVENTION SPECIALIST [facility] [place] [address] 10/03/2023 9:30 AM EDT Infusion Hematology Oncology at [address] [phone] 10/10/2023 8:30 AM EDT Infusion Hematology Oncology at [address] [phone] 10/10/2023 2:45 PM EDT Appointment XRay at [address] [place] [address] Micha Givens Jr., MD [facility] H[place]AT[place] [address] 10/10/2023 3:00 PM EDT Appointment [place] [address] 10/10/2023 3:30 PM EDT Appoint[place] [address] 10/11/2023 8:30 AM EDT Infusion Hematology Oncology at [address] [phone] documented as of this encounter Visit Diagnoses Not on filedocumented in this encounter Care Teams Chargeback Analyst Relationship Specialty Start Date End Date Bobby Headley MD [address] [place] [address] PCP - General 01/29/14 11/28/17 documented as of this encounter
--- OUTSIDE RECORDS SUMMARY | 2023-09-26 02:51 | XMS_ITS | Encounter Summary ---
Author Organization [facility] [place] [address] Care Team Providers Care Second Rigger Name Role Phone Bobby Headley MD Primary Care Provider [phone] Encounter Details Date Type Department Care Team (Late st Contact Info) Description 09/01/2014 [place] [address] Micha Nunez MD [facility] [place] [address] Social History Tobacco Use Types Packs/Day Years [...] AM EDT Infusion Hematology Oncology at [address] [phone] 10/03/2023 9:00 AM EDT Office Visit Hematology/Oncology at [address] [phone] Adrianne Ramon MD [facility] HEMATOLOGY [place] [address] Yael Merlos, KARLA [facility] HEMATOLOGY [place] [address] 10/03/2023 9:30 AM EDT Infusion Hematology Oncology at [address] [phone] 10/10/2023 8:30 AM EDT Infusion Hematology Oncology at [address] [phone] 10/10/2023 2:45 PM EDT Appointment XRay at [address] [place] [address] Micha Givens Jr., MD [facility] HEMATOLOGY [place] [address] 10/10/2023 3:00 PM EDT Appointment Non-[place]vasive [place] [address] 10/10/2023 3:30 PM EDT Appointment [place] [address] 10/11/2023 8:30 AM EDT Infusion Hematology Oncology at [address] [phone] documented as of this encounter [...] is a Non-reportable exam Micha Nunez MD [facility] FILM LIBRARY ORD ERABLES documented in this encounter Visit Diagnoses Not on filedocumented in this encounter Care Teams Second Rigger Relationship Specialty Start Date End Date Bobby Headley MD [address] [place] [address] PCP - General 01/29/14 11/28/17 documented as of this encounter
--- OUTSIDE RECORDS SUMMARY | 2023-09-26 02:51 | XMS_ITS | Encounter Summary ---
[place] [address] Care Team Providers Care Online Health And Fitness Coach Name Role Phone Bobby Headley MD Primary Care Provider [phone] Reason for Visit * Reason Comments Radiation Follow-up prostate cancer Encounter Details Date Type Department Care Team (Late st Contact Info) Description 06/03/2015 3:15 PM EDT Office Visit Radiation Oncology at [address] [phone] Anna Carr [address] RADIATION ONCOLOGY [place], [place] [phone] Malignant neoplasm of prostate Social History Tobacco [...] encounter Progress Notes * Anna Carr Parish, ANODIC OPERATOR - 06/02/2015 9:56 AM EDT Images from [...] elevated at 5.4 with only 9% free. [place] with Dr. Vergara July 2014 who offered biopsy which was performed 09/01/14, demonstrating Gleason4 + 3 disease in a single core at the right apex. Forty-five percent of that core did appear to be involved. Perineural invasion was not seen. Pathology had been reviewed here at [facility]. 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 Smoking [...] sporting events. He will be going to [place] in September to attend a [employer] tournament. He feels he is coping well. [...] Negative. Vitals Office Visit from 06/03/[address] [facility] Radiation Oncology Weight - Scale 92.08 [...] prostate cancer with pretreatment PSA of 5.4 [place] 4+3=7. He was treated with external beam [...] AM EDT Infusion Hematology Oncology at [address] [phone] 10/03/2023 9:00 AM EDT Office Visit Hematology/Oncology at [address] [address] Adrianne Ramon MD [facility] HEMATOLOGY [place] [address] Yael Merlos APRN [facility] DR HEMATOLOGY [place] [address] 10/03/2023 9:30 AM EDT Infusion Hematology Oncology at [address] [phone] 10/10/2023 8:30 AM EDT Infusion Hematology Oncology at [address] [phone] 10/10/2023 2:45 PM EDT Appointment XRay at [address] [place] [address] Micha Givens Jr., MD [facility] HEMATOLOGY [place] [address] 10/10/2023 3:00 PM EDT Appointment [place] [address] 10/10/2023 3:30 PM EDT Appoint[place] [address] 10/11/2023 8:30 AM EDT Infusion Hematology Oncology at [address] [phone] documented as of this encounter Visit Diagnoses Diagnosis Malignant neoplasm of prostate documented in this encounter Care Teams Online Health And Fitness Coach Relationship Specialty Start Date End Date Bobby Headley MD [address] [place] [address] PCP - General 01/29/14 11/28/17 documented as of this encounter
--- OUTSIDE RECORDS SUMMARY | 2023-09-26 02:51 | XMS_ITS | Encounter Summary ---
[place] [address] Care Team Providers Care Mushroom Farmer Name Role Phone Bobby Headley MD Primary Care Provider [phone] Encounter Details Date Type Department Care Team (Late st Contact Info) Description 09/25/2014 External [place] [phone] Provider, Scanning Social History Tobacco Use Types [...] AM EDT Infusion Hematology Oncology at [address] [phone] 10/03/2023 9:00 AM EDT Office Visit Hematology/Oncology at [address] [phone] Adrianne Ramon MD [facility] HEMATOLOGY [place] [address] Yael Merlos APRN [facility] HEMATOLOGY [place] [address] 10/03/2023 9:30 AM EDT Infusion Hematology Oncology at [address] [phone] 10/10/2023 8:30 AM EDT Infusion Hematology Oncology at [address] [address] 10/10/2023 2:45 PM EDT Appointment XRay at [address] [place] [address] Micha Givens Jr., MD [facility] DR HEMATOLOGY [place] [address] 10/10/2023 3:00 PM EDT Appointment Non-Invasive [place] [address] 10/10/2023 3:30 PM EDT Appointment [place] [address] 10/11/2023 8:30 AM EDT Infusion Hematology Oncology at [address] [address] documented as of this encounter Procedures Procedure Name Priority Date/Time Associated Diagnosis Comments SURGICAL PATHOLOGY SCAN Routine 09/25/2014 documented in this encounter Results * Scan Doc: Surgical Pathology (09/25/2014) John Vergara MD MEDIA MGR SCAN EXT O RDR/RSLT documented in this encounter Visit Diagnoses Not on filedocumented in this encounter Care Teams Mushroom Farmer Relationship Specialty Start Date End Date Bobby Headley MD [address] [place] [address] PCP - General 01/29/14 11/28/17 documented as of this encounter
--- OUTSIDE RECORDS SUMMARY | 2023-09-26 02:51 | XMS_ITS | Encounter Summary ---
Author Organization [facility] [place] [address] Care Team Providers Care Java Web User Interface Developer Name Role Phone Bobby Headley MD Primary Care Provider [phone] Encounter Details Date Type Department Care Team (Late st Contact Info) Description 03/04/2014 4:07 PM EST - 03/04/2014 11:59 PM EST Hospital [place] [phone] Testis mass Social History Tobacco Use Types [...] Chewable Take 325 mg by mouth daily. lisinopril (PRINIVIL;ZESTRIL) 10 mg Tablet Take 10 mg by mouth daily. 09/29/2014 documented as of this encounter Plan of Treatment Upcoming Encounters Date Type Department Care Team (Late st Contact Info) Description 09/26/2023 8:30 AM EDT Infusion Hematology Oncology at [address] [phone] 10/03/2023 9:00 AM EDT Office Visit Hematology/Oncology at [address] [phone] Adrianne Ramon MD [facility] [place] [address] Yael Merlos APRN [facility] DR [place] [address] 10/03/2023 9:30 AM EDT Infusion Hematology Oncology at [address] [phone] 10/10/2023 8:30 AM EDT Infusion Hematology Oncology at [address] [phone] 10/10/2023 2:45 PM EDT Appointment XRay at [address] [place] [phone] Landry Givens Jr., MD [facility] [place] [address] 10/10/2023 3:00 PM EDT Appointment Non-[place] [phone] 10/10/2023 3:30 PM EDT [place] [phone] 10/11/2023 8:30 AM EDT Infusion Hematology Oncology at [address] [phone] documented as of this encounter Procedures Procedure Name Priority Date/Time Associated Diagnosis Comments US SCROTUM Routine 03/04/2014 4:46 PM EST Testis mass documented in this encounter Results * US scrotum (03/04/2014 4:46 PM EST) Anatomical Region Laterality Modality Pelvis Ultrasound 03/04/2014 4:46 PM EST Narrative 03/04/2014 5:00 PM EST Scrotal ?(Signed Final 03/04/2014 05:00 ? pm) Patient Info ID #: ? [id number] ?: ??[birth year] (63 yrs) Name: ? CHEO MORFIN ? Visit Date: 03/04/2014 04:39 pm Performed By Performed By: ?Hannah Wahl RDMS Attending: ? Alexandre OCASIO, Jaime Dumas Referred By: ? LANDRY NUNEZ MD Service(s) Provided ??[facility] - Ultrasound Scrotum and Contents with ?[id number], 91806 ??Vascular - [id number], [id number] Indications ??Evaluate Right testicle hx of testis [...] 03/04/2014 05:00 pm) Patient Info ID #: [id number] : [birth year] (63 yrs) Name: CHEO MORFIN Visit Date: 03/04/2014 04:39 pm Performed By Performed By: Hannah Wahl RDMS Attending: Jaime Schroeder MD Referred By: LANDRY NUNEZ MD Service(s) Provided [facility] - Ultrasound Scrotum [place] Contents [place] [id number], [address] Vascular - [id number], [id number] Indications Evaluate Right testicle hx of testis [...] organs documented in this encounter Care Teams Java Web User Interface Developer Relationship Specialty Start Date End Date Bobby Headley MD [address] [place] [address] PCP - General 01/29/14 11/28/17 documented as of this encounter
--- OUTSIDE RECORDS SUMMARY | 2023-09-26 02:51 | XMS_ITS | Encounter Summary ---
Author Organization [facility] [place] [address] Care Team Providers Care Estate Planning Counselor Name Role Phone Bobby Headley MD Primary Care Provider [phone] Encounter Details Date Type Department Care Team (Late st Contact Info) Description 01/12/2015 8:15 AM EST Office Visit Radiation Oncology at [address] [phone] Nitin Stauffer MD [address] [place] [address] DR RADIATION ONCOLOGY [place], [place] [phone] Cancer of prostate with intermediate recurrence risk [...] Uncontrollable bleeding A Radiation Oncology doctor is telephone instrument supervisor after our normal hours and on weekends. To call for urgent medical issues from radiation treatments that can not wait until normal business hours, please call and have the angle dozer operator page the Radiation Oncologist telephone instrument supervisor. Nitin Ramirez MD documented in this encounter Progress Notes * Nitin Stauffer MD - 01/12/2015 7:58 AM EST [facility] On Treatment Visit Patient ID: Cheo Freire [...] AM EDT Infusion Hematology Oncology at [address] [address] 10/03/2023 9:00 AM EDT Office Visit Hematology/Oncology at [address] [address] Adrianne Ramon MD [facility] HEMATOLOGY [place] [address] Yael Merlos APRN [facility] HEMATOLOGY [place] [address] 10/03/2023 9:30 AM EDT Infusion Hematology Oncology at [address] [address] 10/10/2023 8:30 AM EDT Infusion Hematology Oncology at [address] [address] 10/10/2023 2:45 PM EDT Appointment XRay at [address] [place] [address] Micha Givens Jr., MD [facility] HEMATOLOGY [place] [address] 10/10/2023 3:00 PM EDT Appointment Non-[place] [address] 10/10/2023 3:30 PM EDT Appointment [place] [address] 10/11/2023 8:30 AM EDT Infusion Hematology Oncology at [address] [phone] documented as of this encounter Visit Diagnoses Diagnosis Cancer of prostate with intermediate recurrence risk (stage T2b-c or [place] 7 or PSA 10-20) Malignant neoplasm of prostate documented in this encounter Care Teams Estate Planning Counselor Relationship Specialty Start Date End Date Bobby Headley MD [address] [place] [address] PCP - General 01/29/14 11/28/17 documented as of this encounter
--- OUTSIDE RECORDS SUMMARY | 2023-09-26 02:51 | XMS_ITS | Encounter Summary ---
[place] [address] Care Team Providers Care Product Manager E Commerce Name Role Phone Bobby Headley MD Primary Care Provider [phone] Encounter Details Date Type Department Care Team (Late Contact Info) Description 10/21/2014 Telephone Radiation Oncology at [address] [phone] Nitin Stauffer MD [address] [place] [address] RADIATION ONCOLOGY [place], [place] [phone] Social History Tobacco Use Types Packs/Day Years [...] AM EDT Infusion Hematology Oncology at [address] [phone] 10/03/2023 9:00 AM EDT Office Visit Hematology/Oncology at [address] [phone] Adrianne Ramon MD [facility] [place] [address] Yael Merlos APRN [facility] [place] [address] 10/03/2023 9:30 AM EDT Infusion Hematology Oncology at [address] [phone] 10/10/2023 8:30 AM EDT Infusion Hematology Oncology at [address] [phone] 10/10/2023 2:45 PM EDT Appointment XRay at [address] [place] [address] Micha Givens Jr., MD [facility] [place] [address] 10/10/2023 3:00 PM EDT Appointment Non-[place]vasive [place] [address] 10/10/2023 3:30 PM EDT Appointment [place] [address] 10/11/2023 8:30 AM EDT Infusion Hematology Oncology at [address] [phone] documented as of this encounter Visit Diagnoses Not on filedocumented in this encounter Care Teams Product Manager E Commerce Relationship Specialty Start Date End Date Bobby Headley MD [address] [place] [address] PCP - General 01/29/14 11/28/17 documented as of this encounter
--- OUTSIDE RECORDS SUMMARY | 2023-09-26 02:51 | XMS_ITS | Encounter Summary ---
Author Organization [facility] Address [facility] [place] [address] Care Team Providers Care Pantograph Watcher Name Role Phone Bobby Headley MD Primary Care Provider [phone] Reason for Visit * Reason Comments Prostate Cancer Lupron 22.5 mg into left buttocks Encounter Details Date Type Department Care Team (Late st Contact Info) Description 09/29/2014 1:00 PM EDT Infusion Hematology Oncology at [address] [phone] CLINIC, DR [facility] HEM/ONC William German MD [facility] DR [place]AT[place] [address] Malignant neoplasm of prostate Discharge Disposition: Home [...] AM EDT Infusion Hematology Oncology at [address] [address] 10/03/2023 9:00 AM EDT Office Visit Hematology/Oncology at [address] [address] Adrianne Ramon MD [facility] DR [place] [address] Yael Merlos APRN [facility] DR [place] [address] 10/03/2023 9:30 AM EDT Infusion Hematology Oncology at [address] [phone] 10/10/2023 8:30 AM EDT Infusion Hematology Oncology at [address] [address] 10/10/2023 2:45 PM EDT Appointment XRay at [address] [place] [address] Micha Givens Jr., MD [facility] DR HEMATOLOG[place] [address] 10/10/2023 3:00 PM EDT Appointment Non-[place] [address] 10/10/2023 3:30 PM EDT Appointment [place] [address] 10/11/2023 8:30 AM EDT Infusion Hematology Oncology at [address] [address] documented as of this encounter Visit Diagnoses [...] Gluteal documented in this encounter Care Teams Pantograph Watcher Relationship Specialty Start Date End Date Bobby Headley MD [address] [place] [address] PCP - General 01/29/14 11/28/17 documented as of this encounter
--- OUTSIDE RECORDS SUMMARY | 2023-09-26 02:51 | XMS_ITS | Encounter Summary ---
[place] [address] Care Team Providers Care Corrections Caseworker Name Role Phone Bobby Headley MD Primary Care Provider [phone] Encounter Details Date Type Department Care Team (Late st Contact Info) Description 12/31/2014 8:00 AM EST Office Visit Radiation Oncology at [address] [phone] Nitin Stauffer MD [address] [place] [address] DR RADIATION ONCOLOGY [place], [place] [phone] Cancer of prostate with intermediate recurrence risk [...] Uncontrollable bleeding A Radiation Oncology doctor is sales enablement consultant after our normal hours and on weekends. To call for urgent medical issues from radiation treatments that can not wait until normal business hours, please call and have the cigarette machine operator page the Radiation Oncologist sales enablement consultant. Nitin Ramirez MD documented in this encounter Progress Notes * Nitin Stauffer MD - 12/31/2014 8:[address] [facility] On Treatment Visit Patient ID: Cheo [...] AM EDT Infusion Hematology Oncology at [address] [address] 10/03/2023 9:00 AM EDT Office Visit Hematology/Oncology at [address] [address] Adrianne Ramon MD [facility] [place] [address] Yael Merlos APRN [facility] [place] [address] 10/03/2023 9:30 AM EDT Infusion Hematology Oncology at [address] [address] 10/10/2023 8:30 AM EDT Infusion Hematology Oncology at [address] [address] 10/10/2023 2:45 PM EDT Appointment XRay at [address] [place] [address] Micha Givens Jr., MD [facility] DR HEMATOLOGY [place] [address] 10/10/2023 3:00 PM EDT Appointment Non[place] [address] 10/10/2023 3:30 PM EDT Appoint[place] [address] 10/11/2023 8:30 AM EDT Infusion Hematology Oncology at [address] [address] documented as of this encounter Visit Diagnoses Diagnosis Cancer of prostate with intermediate recurrence risk (stage T2b-c or [place] 7 or PSA 10-20) Malignant neoplasm of prostate documented in this encounter Care Teams Corrections Caseworker Relationship Specialty Start Date End Date Bobby Headley MD [address] [place] [address] PCP - General 01/29/14 11/28/17 documented as of this encounter
--- OUTSIDE RECORDS SUMMARY | 2023-09-26 02:51 | XMS_ITS | Encounter Summary ---
[place] [address] Care Team Providers Care Cap And Hat Production Supervisor Name Role Phone Bobby Headley MD Primary Care Provider [phone] Encounter Details Date Type Department Care Team (Late st Contact Info) Description 12/17/2014 8:15 AM EDT Office Visit Radiation Oncology at [address] [phone] Nitin Stauffer MD [address] [place] [address] DR RADIATION ONCOLOGY [place], [place] [phone] Cancer of prostate with intermediate recurrence risk [...] bleeding A Radiation Oncology doctor is production troubleshooter after our normal hours and on weekends. To call for urgent medical issues from radiation treatments that can not wait until normal business hours, please call and have the bending press operator page the Radiation Oncologist production troubleshooter. Nitin Ramirez MD documented in this encounter Progress Notes * Nitin Stauffer MD - 12/17/2014 8:10 AM EDT [facility] On Treatment Visit Patient [...] AM EDT Infusion Hematology Oncology at [address] [phone] 10/03/2023 9:00 AM EDT Office Visit Hematology/Oncology at [address] [address] Adrianne Ramon MD [facility] [place] [address] Yael Merlos APRN [facility] HEMATOLOGY [place] [address] 10/03/2023 9:30 AM EDT Infusion Hematology Oncology at [address] [address] 10/10/2023 8:30 AM EDT Infusion Hematology Oncology at [address] [address] 10/10/2023 2:45 PM EDT Appointment XRay at [address] [place] [address] Micha Givens Jr., MD [facility] DR HEMATOLOGY [place] [address] 10/10/2023 3:00 PM EDT Appointment Non-Invasive [place] [address] 10/10/2023 3:30 PM EDT Appointment [place] [address] 10/11/2023 8:30 AM EDT Infusion Hematology Oncology at [address] [phone] documented as of this encounter Visit Diagnoses Diagnosis Cancer of prostate with intermediate recurrence risk (stage T2b-c or [place] 7 or PSA 10-20) Malignant neoplasm of prostate documented in this encounter Care Teams Cap And Hat Production Supervisor Relationship Specialty Start Date End Date Bobby Headley MD [address] [place] [address] PCP - General 01/29/14 11/28/17 documented as of this encounter
--- OUTSIDE RECORDS SUMMARY | 2023-09-26 02:51 | XMS_ITS | Encounter Summary ---
[place] [address] Care Team Providers Care Bleacher Lard Name Role Phone Bobby Headley MD Primary Care Provider [phone] Encounter Details Date Type Department Care Team (Late st Contact Info) Description 11/26/2014 9:00 AM EDT Office Visit Radiation Oncology at [address] [phone] Nitin Stauffer MD [address] [place] [address] DR RADIATION ONCOLOGY [place], [place] [phone] Cancer of prostate with intermediate recurrence risk [...] Uncontrollable bleeding A Radiation Oncology doctor is inspector insulation after our normal hours and on weekends. To call for urgent medical issues from radiation treatments that can not wait until normal business hours, please call and have the carbon capture power plant operator page the Radiation Oncologist inspector insulation. Nitin Ramirez MD documented in this encounter Progress Notes * Nitin Stauffer MD - 11/26/2014 11:16 AM EDT [facility] On Treatment Visit Patient ID: Cheo [...] AM EDT Infusion Hematology Oncology at [address] [address] 10/03/2023 9:00 AM EDT Office Visit Hematology/Oncology at [address] [address] [facility] HEMATOLOGY [place] [address] [facility] HEMATOLOGY [place] [address] 10/03/2023 9:30 AM EDT Infusion Hematology Oncology at [address] [address] 10/10/2023 8:30 AM EDT Infusion Hematology Oncology at [address] [phone] 10/10/2023 2:45 PM EDT Appointment XRay at [address] [place] [address] Micha Givens Jr., MD [facility] DR HEMATOLOGY [place] [address] 10/10/2023 3:00 PM EDT Appointment Non-Invasive [place] [address] 10/10/2023 3:30 PM EDT [place] [address] 10/11/2023 8:30 AM EDT Infusion Hematology Oncology at [address] [phone] documented as of this encounter Visit Diagnoses Diagnosis Cancer of prostate with intermediate recurrence risk (stage T2b-c or [place] 7 or PSA 10-20) Malignant neoplasm of prostate documented in this encounter Care Teams Bleacher Lard Relationship Specialty Start Date End Date Bobby Headley MD [address] [place] [address] PCP - General 01/29/14 11/28/17 documented as of this encounter
--- OUTSIDE RECORDS SUMMARY | 2023-09-26 02:51 | XMS_ITS | Encounter Summary ---
[place] [address] Care Team Providers Care Demi Chef Name Role Phone Bobby Headley MD Primary Care Provider [phone] Encounter Details Date Type Department Care Team (Late st Contact Info) Description 09/24/2014 4:13 PM EDT - 09/24/2014 11:59 PM EDT [place] [phone] Tk Vergara MD [address] [place] [address] Discharge Disposition: Home Social History Tobacco Use [...] AM EDT Infusion Hematology Oncology at [address] [address] 10/03/2023 9:00 AM EDT Office Visit Hematology/Oncology at [address] [address] Adrianne Ramon MD [facility] HEMATOLOGY [place] [address] Yael Merlos APRN [facility] HEMATOLOGY [place] [address] 10/03/2023 9:30 AM EDT Infusion Hematology Oncology at [address] [phone] 10/10/2023 8:30 AM EDT Infusion Hematology Oncology at [address] [phone] 10/10/2023 2:45 PM EDT Appointment XRay at [address] [place] [address] Micha Givens Jr., MD [facility] HEMATOLOGY [place] [address] 10/10/2023 3:00 PM EDT Appointment Non-[place]vasive [place] [phone] 10/10/2023 3:30 PM EDT Appointment [place] [address] 10/11/2023 8:30 AM EDT Infusion Hematology Oncology at [address] [phone] documented as of this encounter Procedures Procedure Name Priority Date/Time Associated Diagnosis Comments SURGICAL PATHOLOGY REPORT Routine 09/24/2014 10:06 AM EDT documented in this encounter Results * Surgical Pathology Report (09/24/2014 10:06 AM EDT) Final Diagnosis ? [facility] ? Provider: ?? TK VERGARA ?? Pt. Name: ?? CHEO MORFIN ? Acc #: ?[id number] ?Pt. ? Col Date: ?? 09/24/2014 ?/Sex: ?1950,(64 years),Male ? Rec Date: ?? 09/25/2014 ?LOC: ?OPW ? SURGICAL PATHOLOGY ? DIAGNOSIS ? CONSULTATION CASE ? Outside slides labeled [id number], collection date 09/01/2014 ? A - Prostatic [...] needle biopsy, right mid apex: ? Adenocarcinoma, [place] grade 4+3, discontinuously involving ? approximately 45% [...] mid apex: ? Benign prostatic tissue. ? [facility] ? Provider: ?? TK VERGARA ?? Pt. Name: ?? CHEO MORFIN ? Acc #: ?[id number] ?Pt. ? Col Date: ?? 09/24/2014 ?/Sex: [...] description not recorded. ? Whole slide scan: ?[id number] A-10 ? GROSS DESCRIPTION ? [facility] ([facility]) pathology slide(s) are ? reviewed. ??Refer to Diagnosis and Specimen Submitted for specific case ? information. ? For the full text of the [facility] report(s) please refer to Non-DH ? Documentation Pathology in the electronic health record (eDH). ? CLINICAL INFORMATION ? Specimen Submitted: ? CONSULTATION CASE ? A - 20 slides labeled [id number], collection date 09/01/2014. ? [id number] ? Report to: ? [facility] ? Surgical Pathology Department ? [facility], [facility], 2nd Floor ? [address] ? [place], [place] ??[address] ? 09/28/2014 3:18 PM EDT [facility] Consult Case 09/24/2014 10:0 6 AM EDT 09/24/2014 10:06 AM EDT Tk Vergara MD PATHOLOGY/CYTOLOGY O COLIN [facility] [place] [address] documented in this encounter Visit Diagnoses Not on filedocumented in this encounter Care Teams Demi Chef Relationship Specialty Start Date End Date Bobby Headley MD [address] [place] [address] PCP - General 01/29/14 11/28/17 documented as of this encounter
--- OUTSIDE RECORDS SUMMARY | 2023-09-26 02:51 | XMS_ITS | Encounter Summary ---
[place] [address] Care Team Providers Care Youth Agent Name Role Phone Bobby Headley MD Primary Care Provider [phone] Reason for Visit * Reason Comments Prostate Cancer Lupron injection Encounter Details Date Type Department Care Team (Late st Contact Info) Description 12/22/2014 8:30 AM EST Infusion Hematology Oncology at [address] [phone] Malignant neoplasm of prostate Social [...] AM EDT Infusion Hematology Oncology at [address] [address] 10/03/2023 9:00 AM EDT Office Visit Hematology/Oncology at [address] [address] Adrianne Ramon MD [facility] HEMATOLOGY [place] [address] Yael Merlos APRN [facility] HEMATOLOGY [place] [address] 10/03/2023 9:30 AM EDT Infusion Hematology Oncology at [address] [address] 10/10/2023 8:30 AM EDT Infusion Hematology Oncology at [address] [address] 10/10/2023 2:45 PM EDT Appointment XRay at [address] [place] [address] Micha Givens Jr., MD [facility] HEMATOLOGY [place] [address] 10/10/2023 3:00 PM EDT Appointment [place] [address] 10/10/2023 3:30 PM EDT Appointment [place] [address] 10/11/2023 8:30 AM EDT Infusion Hematology Oncology at [address] [address] documented as of this encounter Visit Diagnoses [...] Gluteal documented in this encounter Care Teams Youth Agent Relationship Specialty Start Date End Date Bobby Headley MD [address] [place], [place] [address] PCP - General 01/29/14 11/28/17 documented as of this encounter
--- OUTSIDE RECORDS SUMMARY | 2023-09-26 02:51 | XMS_ITS | Encounter Summary ---
Author Organization [facility] [place] [address] Care Team Providers Care Antique Finisher Name Role Phone Bobby Headley MD Primary Care Provider [phone] Encounter Details Date Type Department Care Team (Late Contact Info) Description 09/30/2014 Orders Only Radiation Oncology at [address] [phone] Nitin Stauffer MD [address] [place] [address] DR RADIATION ONCOLOGY [place], [place] [phone] Social History Tobacco Use Types Packs/Day Years [...] AM EDT Infusion Hematology Oncology at [address] [phone] 10/03/2023 9:00 AM EDT Office Visit Hematology/Oncology at [address] [phone] Adrianne Ramon MD [facility] [place] [address] Yael Merlos APRN [facility] HEMATOLOGY [place] [address] 10/03/2023 9:30 AM EDT Infusion Hematology Oncology at [address] [phone] 10/10/2023 8:30 AM EDT Infusion Hematology Oncology at [address] [phone] 10/10/2023 2:45 PM EDT Appointment XRay at [address] [place] [address] Micha Givens Jr., MD [facility] HEMATOLOGY [place] [address] 10/10/2023 3:00 PM EDT Appointment Non[place] [address] 10/10/2023 3:30 PM EDT [place]oint[place] [address] 10/11/2023 8:30 AM EDT Infusion Hematology Oncology at [address] [phone] documented as of this encounter Visit Diagnoses Not on filedocumented in this encounter Care Teams Antique Finisher Relationship Specialty Start Date End Date Bobby Headley MD [address] [place] [address] PCP - General 01/29/14 11/28/17 documented as of this encounter
--- OUTSIDE RECORDS SUMMARY | 2023-09-26 02:51 | XMS_ITS | Encounter Summary ---
Author Organization [facility] [place] [address] Care Team Providers Care Fruit And Vegetable Packer Name Role Phone Bobby Headley MD Primary Care Provider [phone] Encounter Details Date Type Department Care Team (Late st Contact Info) Description 12/01/2015 10:15 AM EDT Office Visit Hematology/Oncology at [address] [phone] Annika Quezada APRN [facility] [place] [address] Prostate cancer Social History Tobacco Use Types [...] prostate cancer with pretreatment PSA of 5.4 [place] 4+3=7. He was treated with external beam [...] elevated at 5.4 with only 9% free. [place] with Dr. Vergara July 2014 who offered biopsy which was performed 09/01/14, demonstrating Gleason4 + 3 disease in a single core at the right apex. Forty-five percent of that core did appear to be involved. Perineural invasion was not seen. Pathology had been reviewed here at [facility]. 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 He went to [place] in September to attend a [employer] tournament and had a great time. He [...] AM EDT Infusion Hematology Oncology at [address] [address] 10/03/2023 9:00 AM EDT Office Visit Hematology/Oncology at [address] [address] Adrianne Ramon MD [facility] DR HEMATOLOGY [place] [address] Yael Merlos APRN [facility] HEMATOLOGY [place] [address] 10/03/2023 9:30 AM EDT Infusion Hematology Oncology at [address] [address] 10/10/2023 8:30 AM EDT Infusion Hematology Oncology at [address] [address] 10/10/2023 2:45 PM EDT Appointment XRay at [address] [place] [address] Micha Givens Jr., MD [facility] DR HEMATOLOGY [place] [address] 10/10/2023 3:00 PM EDT Appointment [place] [address] 10/10/2023 3:30 PM EDT Appointment [place] [address] 10/11/2023 8:30 AM EDT Infusion Hematology Oncology at [address] [address] documented as of this encounter Visit Diagnoses Diagnosis Prostate cancer Malignant neoplasm of prostate documented in this encounter Care Teams Fruit And Vegetable Packer Relationship Specialty Start Date End Date Bobby Headley MD [address] [place] [address] PCP - General 01/29/14 11/28/17 documented as of this encounter
--- OUTSIDE RECORDS SUMMARY | 2023-09-26 02:51 | XMS_ITS | Encounter Summary ---
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 The patient has been for 24 years [...] notable for a small left testicle ~ [id number]. There is a tiny firm area palpable [...] AM EDT Infusion Hematology Oncology at [address] [address] 10/03/2023 9:00 AM EDT Office Visit Hematology/Oncology at [address] [address] Adrianne Ramon MD [facility] DR HEMATOLOGY AND [place] [address] Yael Merlos APRN [facility] HEMATOLOGY AND [place] [address] 10/03/2023 9:30 AM EDT Infusion Hematology Oncology at [address] [phone] 10/10/2023 8:30 AM EDT Infusion Hematology Oncology at [address] [phone] 10/10/2023 2:45 PM EDT Appointment XRay at [address] [place] [address] Landry Givens Jr., MD [facility] HEMATOLOGY AND [place] [address] 10/10/2023 3:00 PM EDT Appointment Non-[place] [phone] 10/10/2023 3:30 PM EDT Appointment [place] [address] 10/11/2023 8:30 AM EDT Infusion Hematology Oncology at [address] [phone] documented as of this encounter Procedures Procedure [...] ? pm) Patient Info ID #: ? [id number] ?: ??[birth year] (63 yrs) Name: ? CHEO MORFIN ? Visit Date: 03/04/2014 04:39 pm Performed By Performed By: ?Hannah Wahl RDMS Attending: ? Alexandre OCASIO, Jaime Dumas Referred By: ? LANDRY NUNEZ MD Service(s) Provided ??[facility] - Ultrasound Scrotum and Contents with ?[id number], [id number] ??Vascular - [id number], [id number] Indications ??Evaluate Right testicle hx of testis [...] 03/04/2014 05:00 pm) Patient Info ID #: [id number] : [birth year] (63 yrs) Name: CHEO MORFIN Visit Date: 03/04/2014 04:39 pm Performed By Performed By: Hannah Wahl RDMS Attending: Jaime Schroeder MD Referred By: LANDRY NUNEZ MD Service(s) Provided [facility] - Ultrasound Scrotum and Contents with [id number], [id number] Vascular - [id number], [id number] Indications Evaluate Right testicle hx of testis [...] Nunez MD IMG US GEN ORDERABLE S * Differential, Automated (03/04/2014 4:03 PM EST) Neutrophil % 56.3 % CERNER MILLENNIUM Neutrophil Absolute 5.08 1.50 - 6.30 x10(3)/mcL CERNER MILLENNIUM Lymph % 31.5 % CERNER MILLENNIUM Lymphocytes Abs 2.8 1.0 - 3.6 x10(3)/mcL CERNER MILLENNIUM Monocyte % 9.6 % CERNER MILLENNIUM Monocyte Abs 0.9 0.2 - 1.0 x10(3)/mcL CERNER MILLENNIUM Eos % 2.2 % CERNER MILLENNIUM Eosinophils Abs 0.2 0.0 - 0.5 x10(3)/mcL CERNER MILLENNIUM Basophil % 0.2 % CERNER MILLENNIUM Baso Absolute 0.0 0.0 - 0.2 x10(3)/mcL CERNER MILLENNIUM [...] performed. Immature Gran Absolute 0.02 0.00 - 0.05 x10(3)/mcL CERNER MILLENNIUM Blood specimen (specimen) 03/04/2014 4:03 PM EST 03/04/2014 4:07 PM EST Narrative Resulting Agency Comment Spec In Lab Landry Nunez MD HEMATOLOGY ORDERABLE S CERNER MILLENNIUM * (ABNORMAL) Hemogram (03/04/2014 4:03 PM EST) White Blood Cell 9.0 4.0 - 10.0 x10(3)/mc L CERNER MILLENNIUM Red Blood Cell 4.34(L) 4.63 - 6.08 x10(6)/mc L CERNER MILLENNIUM Hemoglobin 13.1(L) 13.7 - 17.5 gm/dL CERNER MILLENNIUM Hematocrit 39.8(L) 40.0 - 51.0 % CERNER MILLENNIUM Mean Cell Volume 91.7 79.0 - 92.0 fL CERNER MILLENNIUM Mean Cell Hemoglobin 30.2 25.6 - 32.2 pg CERNER MILLENNIUM Mean Cell Hemoglobin Concentration 32.9 32.0 - 36.5 gm/dL CERNER MILLENNIUM Platelet 280 145 - 370 x10(3)/mc L CERNER MILLENNIUM RDW Standard Deviation 45.9 35.0 - 46.0 fL CERNER MILLENNIUM RDW coefficient of variation 13.7 10.9 - 14.4 % CERNER MILLENNIUM Mean Platelet Volume 10.2 9.0 - 12.0 fL CERNER MILLENNIUM Blood specimen (specimen) 03/04/2014 4:03 PM EST 03/04/2014 4:07 PM EST Narrative Resulting Agency Comment Spec In Lab Landry Nunez MD HEMATOLOGY ORDERABLE S Performing Organization Address [facility] Co de Phone Number [facility] * AFP tumor marker (03/04/2014 4:03 PM EST) Alpha Fetoprotein 2.3 <=8.3 ng/mL [facility] Blood specimen (specimen) 03/04/2014 4:03 PM EST 03/04/2014 4:07 PM EST Narrative Resulting Agency Comment Spec In Lab Landry Nunez MD CHEMISTRY ORDERABLES Performing Organization Address [facility] Co de Phone Number [facility] * Beta HCG, quantitative (03/04/2014 4:03 PM EST) Beta Human Chorionic Gonadotropin, Quantitative <1 0 - 2 mlU/ML [facility] Comment: REFERENCE RANGES NON- FEMALE: ??Less than 5 mIU/mL POSTMENOPAUSAL FEMALE: ??Less than 8 mIU/mL ? -- FEMALES -- Weeks of ? HCG range ??(mIU/mL) ? 3 weeks ? 5.8 - 71.2 ? 4 weeks ? 9.5 - 750 ? 5 weeks ? 217 - 7,138 ? 6 weeks ? 158 - 31,795 ? 7 weeks ? 3,697 - 163,563 ? 8 weeks ? 32,065 - 149,571 ? 9 weeks ? 63,803 - 151,410 ?10 weeks ? 46,509 - 186,977 ?12 weeks ? 27,832 - 210,612 ?14 weeks ? 13,950 - 62,530 ?15 weeks ? 12,039 - 70,971 ?16 weeks ? 9,040 - 56,451 ?17 weeks ? 8,175 - 01,868 ?18 weeks ? 8,099 - 66,176 Blood specimen (specimen) 03/04/2014 4:03 PM EST 03/04/2014 4:07 PM EST Narrative Resulting Agency Comment Spec In Lab Landry Nunez MD CHEMISTRY ORDERABLES [facility] documented in this encounter Visit Diagnoses Diagnosis Testis mass Other specified disorder of male genital organs Testis cancer, right Testis mass Other specified disorder of male genital organs documented in this encounter Care Teams Sample Checker Relationship Specialty Start Date End Date Bobby Headley MD [address] [place] [address] PCP - General 01/29/14 11/28/17 documented as of this encounter
--- OUTSIDE RECORDS SUMMARY | 2023-09-26 02:51 | XMS_ITS | Encounter Summary ---
[place] [address] Care Team Providers Care Physical Therapy Director Name Role Phone Bobby Headley MD Primary Care Provider [phone] Reason for Visit * Reason Comments Radiation Follow-up prostate cancer Encounter Details Date Type Department Care Team (Late st Contact Info) Description 09/09/2015 10:30 AM EDT Office Visit Radiation Oncology at [address] [phone] Anna Carr [address] [place] [address] Malignant neoplasm of prostate Social [...] 5.4 Vitals Office Visit from 09/09/2015 in [facility] Radiation Oncology Weight - Scale 93.4 [...] elevated at 5.4 with only 9% free. [place] with Dr. Vergara July 2014 who offered biopsy which was performed 09/01/14, demonstrating Gleason4 + 3 disease in a single core at the right apex. Forty-five percent of that core did appear to be involved. Perineural invasion was not seen. Pathology had been reviewed here at [facility]. 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 Smoking [...] sporting events. He will be going to [place] in September to attend a [employer] tournament. He feels he is coping well. [...] 100 Vitals Office Visit from 09/09/2015 in [facility] Radiation Oncology Weight - Scale 93.4 [...] AM EDT Infusion Hematology Oncology at [address] [address] 10/03/2023 9:00 AM EDT Office Visit Hematology/Oncology at [address] [address] Adrianne Ramon MD [facility] HEMATOLOGY [place] [address] Yael Merlos APRN [facility] HEMATOLOGY [place] [address] 10/03/2023 9:30 AM EDT Infusion Hematology Oncology at [address] [address] 10/10/2023 8:30 AM EDT Infusion Hematology Oncology at [address] [address] 10/10/2023 2:45 PM EDT Appointment XRay at [address] [place] [address] Micha Givens Jr., MD [facility] HEMATOLOGY [place] [address] 10/10/2023 3:00 PM EDT Appointment Non-Invasive [place] [address] 10/10/2023 3:30 PM EDT Appointment [place] [address] 10/11/2023 8:30 AM EDT Infusion Hematology Oncology at [address] [phone] documented as of this encounter Visit Diagnoses Diagnosis Malignant neoplasm of prostate documented in this encounter Care Teams Physical Therapy Director Relationship Specialty Start Date End Date Bobby Headley MD [address] [place] [address] PCP - General 01/29/14 11/28/17 documented as of this encounter
--- OUTSIDE RECORDS SUMMARY | 2023-09-26 02:51 | XMS_ITS | Encounter Summary ---
Author Organization [facility] [place] [address] Care Team Providers Care Horticultural Technical Officer Name Role Phone Bobby Headley MD Primary Care Provider [phone] Encounter Details Date Type Department Care Team (Late Contact Info) Description 10/21/2014 Orders Only Radiation Oncology at [address] [phone] Nitin Stauffer MD [address] [place] [address] DR RADIATION ONCOLOGY [place], [place] [id number] Social History Tobacco Use Types Packs/Day Years [...] AM EDT Infusion Hematology Oncology at [address] [phone] 10/03/2023 9:00 AM EDT Office Visit Hematology/Oncology at [address] [phone] Adrianne Ramon MD [facility] [place] [address] Yael Merlos APRN [facility] [place] [address] 10/03/2023 9:30 AM EDT Infusion Hematology Oncology at [address] [phone] 10/10/2023 8:30 AM EDT Infusion Hematology Oncology at [address] [phone] 10/10/2023 2:45 PM EDT Appointment XRay at [address] [place] [address] Micha Givens Jr., MD [facility] HEMATOLOGY [place] [address] 10/10/2023 3:00 PM EDT Appointment Non-[place] [address] 10/10/2023 3:30 PM EDT App[place] [address] 10/11/2023 8:30 AM EDT Infusion Hematology Oncology at [address] [phone] documented as of this encounter Procedures Procedure [...] is a Non-reportable exam Nitin Stauffer MD [facility] ORD ERABLES documented in this encounter Visit Diagnoses Not on filedocumented in this encounter Care Teams Horticultural Technical Officer Relationship Specialty Start Date End Date Bobby Headley MD [address] [place] [address] PCP - General 01/29/14 11/28/17 documented as of this encounter
--- OUTSIDE RECORDS SUMMARY | 2023-09-26 02:51 | XMS_ITS | Encounter Summary ---
[place] [address] Care Team Providers Care Higher Education Administrator Name Role Phone Bobby Headley MD Primary Care Provider [phone] Reason for Visit * Reason Comments On Treatment Visit Encounter Details Date Type Department Care Team (Late st Contact Info) Description 01/19/2015 8:00 AM EST Office Visit Radiation Oncology at [address] [phone] Nitin Stauffer MD [address] [place] [address] [place] [address] Cancer of prostate with intermediate recurrence risk (stage T2b-c or [place] 7 or PSA 10-20) Social History Tobacco [...] Uncontrollable bleeding A Radiation Oncology doctor is artifacts conservator after our normal hours and on weekends. To call for urgent medical issues from radiation treatments that can not wait until normal business hours, please call and have the fermenter operator page the Radiation Oncologist artifacts conservator. Nitin Ramirez. MD Eh documented in this encounter Progress Notes * Nitin Stauffer MD - 01/19/2015 8:11 AM EST [facility] On Treatment [...] AM EDT Infusion Hematology Oncology at [address] [address] 10/03/2023 9:00 AM EDT Office Visit Hematology/Oncology at [address] [phone] Adrianne Ramon MD [facility] HEMATOLOGY [place] [address] Yael Merlos, SUPERVISOR GRINDING [facility] HEMATOLOGY [place] [address] 10/03/2023 9:30 AM EDT Infusion Hematology Oncology at [address] [phone] 10/10/2023 8:30 AM EDT Infusion Hematology Oncology at [address] [phone] 10/10/2023 2:45 PM EDT Appointment XRay at [address] [place] [address] Micha Givens Jr., MD [facility] HEMATOLOGY [place] [address] 10/10/2023 3:00 PM EDT Appointment Non-[place] [address] 10/10/2023 3:30 PM EDT [place] [address] 10/11/2023 8:30 AM EDT Infusion Hematology Oncology at [address] [phone] documented as of this encounter Visit Diagnoses Diagnosis Cancer of prostate with intermediate recurrence risk (stage T2b-c or [place] 7 or PSA 10-20) Malignant neoplasm of prostate documented in this encounter Care Teams Higher Education Administrator Relationship Specialty Start Date End Date Bobby Headley MD [address] [place] [address] PCP - General 01/29/14 11/28/17 documented as of this encounter
--- OUTSIDE RECORDS SUMMARY | 2023-09-26 02:51 | XMS_ITS | Encounter Summary ---
[place] [address] Care Team Providers Care Cloth Cutter Name Role Phone Bobby Headley MD Primary Care Provider [phone] Reason for Visit * Reason Comments Radiation Follow-up prostate cancer Encounter Details Date Type Department Care Team (Late st Contact Info) Description 02/25/2015 1:45 PM EST Office Visit Radiation Oncology at [address] [phone] Anna Carr [address] [place] [address] Malignant neoplasm of prostate Social [...] this encounter Progress Notes * Anna Carr, LEVEL VIAL SEALER - 02/24/2015 4:31 PM EST Images from [...] elevated at 5.4 with only 9% free. [place] with Dr. Vergara July 2014 who offered biopsy which was performed 09/01/14, demonstrating Gleason4 + 3 disease in a single core at the right apex. Forty-five percent of that core did appear to be involved. Perineural invasion was not seen. Pathology had been reviewed here at [facility]. 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 Smoking [...] Negative. Vitals Office Visit from 02/25/2015 in [facility] Radiation Oncology Weight - Scale 90.266 kg [...] AM EDT Infusion Hematology Oncology at [address] [phone] 10/03/2023 9:00 AM EDT Office Visit Hematology/Oncology at [address] [phone] Adrianne Ramon MD [facility] HEMATOLOGY [place] [address] Yael Merlos APRN [facility] HEMATOLOGY [place] [address] 10/03/2023 9:30 AM EDT Infusion Hematology Oncology at [address] [phone] 10/10/2023 8:30 AM EDT Infusion Hematology Oncology at [address] [address] 10/10/2023 2:45 PM EDT Appointment XRay at [address] [place] [address] Micha Givens Jr., MD [facility] HEMATOLOGY [place] [address] 10/10/2023 3:00 PM EDT Appointment Non-[place] [address] 10/10/2023 3:30 PM EDT Appointment [place] [address] 10/11/2023 8:30 AM EDT Infusion Hematology Oncology at [address] [phone] documented as of this encounter Visit Diagnoses Diagnosis Malignant neoplasm of prostate documented in this encounter Care Teams Cloth Cutter Relationship Specialty Start Date End Date Bobby Headley MD [address] [place] [address] PCP - General 01/29/14 11/28/17 documented as of this encounter
--- OUTSIDE RECORDS SUMMARY | 2023-09-26 02:51 | XMS_ITS | Encounter Summary ---
[place] [address] Care Team Providers Care Electronic Die Maker Name Role Phone Bobby Headley MD Primary Care Provider [phone] Encounter Details Date Type Department Care Team (Late st Contact Info) Description 02/01/2015 Notes Only Radiation Oncology at [address] [phone] Nitin Stauffer MD [address] [place] [address] DR RADIATION ONCOLOGY [place], [place] [phone] Social History Tobacco Use Types Packs/Day Years [...] his prostate and proximal SV at the [facility] in [place], [place]. Details of his radiation treatment course are as below. RT information: Date of RT Start: 11/25/14 Date of RT Completion: 01/26/15 Dose and targets: 70.2 Gy to the proximal SV and prostate, 79.2Gy to the prostate Field orientation: Dynamic arc VMAT Java Manager Target Coverage (70Gy isodose line indicated): SPECIAL [...] AM EDT Infusion Hematology Oncology at [address] [address] 10/03/2023 9:00 AM EDT Office Visit Hematology/Oncology at [address] [address] Adrianne Ramon MD [facility] DR HEMATOLOGY [place] [address] Yael Merlos APRN [facility] HEMATOLOGY [place] [address] 10/03/2023 9:30 AM EDT Infusion Hematology Oncology at [address] [address] 10/10/2023 8:30 AM EDT Infusion Hematology Oncology at [address] [address] 10/10/2023 2:45 PM EDT Appointment XRay at [address] [place] [address] Micha Givens Jr., MD [facility] HEMATOLOGY [place] [address] 10/10/2023 3:00 PM EDT Appointment Non-[place]vasive [place] [address] 10/10/2023 3:30 PM EDT Appointment [place] [address] 10/11/2023 8:30 AM EDT Infusion Hematology Oncology at [address] [phone] documented as of this encounter Visit Diagnoses Not on filedocumented in this encounter Care Teams Electronic Die Maker Relationship Specialty Start Date End Date Bobby Headley MD [address] [place] [address] PCP - General 01/29/14 11/28/17 documented as of this encounter
[2023-09-26 07:56] LABS: Abs Immature Grans 0.06 10^3/uL (0.0-0.06); Absolute Basophil Count 0.01 10^3/uL (0.0-0.2); Absolute Eosinophil Count 0.07 10^3/uL (0.0-0.7); Absolute Monocyte Count 0.83 10^3/uL (0.1-0.8); Basophils % 0.1 %; Eosinophils % 0.7 %; HCT 36.3 % (40.0-50.0); Immature Grans % 0.6 %; Lymphocytes % 8.7 %; MCH 29.9 pg (27.0-33.0); MCHC 33.1 % (32.0-36.0); MCV 90 fL (80-95); MPV 10.7 fL (8.0-11.0); Neutrophils % 81.9 %; Platelet Count 138 10^3/uL (130-400); RBC 4.02 10^6/uL (4.36-5.78); RDW 13.7 % (11.8-14.1); RDW-SD 45.5 fL; WBC 10.37 10^3/uL (4.4-10.8)
[2023-09-26 09:35] LABS: ALT 47 U/L (16-63); AST 15 U/L (15-37); Albumin 3.1 g/dL (3.4-5.0); Alkaline Phosphatase 165 U/L (46-116); Anion Gap 12.2 mmol/L (3-11); BUN 41 mg/dL (7-18); Bilirubin, Total 0.61 mg/dL (0.2-1.0); CO2 21.8 mmol/L (21.0-32.0); CREATININE 1.7 mg/dL (0.70-1.30); Calcium 8.7 mg/dL (8.5-10.1); Chloride 100 mmol/L (98-107); Estimated GFR 41.52 (mL/min/1.73m2); Ferritin 503 ng/mL (26-388); LDH 223 U/L (85-227); Potassium 4.1 mmol/L (3.5-5.1); Sodium 134 mmol/L (136-145); Total Protein 5.9 g/dL (6.4-8.2)
[2023-09-26 09:39] LABS: Glucose 605 mg/dL (74-106)
[2023-09-27 10:24] LABS: IgA 108 mg/dL (85-499); IgG 529 mg/dL (610-1616); IgM 129 mg/dL (35-242)
[2023-09-27 11:21] LABS: Uric Acid 4.2 mg/dL (3.5-7.2)
== END 2023-09-26 02:41 | disposition home or self-care (01) ==
LOC: LBO 02:40
PROVIDERS: PCP Family Medicine; Visit Provider Internal Medicine Hematology & Oncology
DX: C85.98 Non-Hodgkin lymphoma, unspecified, lymph nodes of multiple sites (principal)
CPT/HCPCS: 36415; 80053; 82784; 82728; 83615; 84550; 85025

== ENCOUNTER 2023-10-03 03:05 | Outpatient (CLI) | payer MEDICARE, SELFPAY ==
--- OUTSIDE RECORDS SUMMARY | 2023-10-03 03:11 | XMS_ITS | Encounter Summary ---
Author Organization [facility] Address [address] [place] [address] Care Team Providers Care Director Regulatory Agency Name Role Phone Bobby Headley MD Primary Care Provider [phone] Encounter Details Date Type Department Care Team (Late st Contact Info) Description 10/06/2022 Lab Requisition [facility] Pathology & Laboratory Medicine - [facility] [address] [place] [address] Lg Ramírez MD [address] [place] [address] Generalized enlarged lymph nodes Social History [...] Diffuse Large B-Cell Lymphoma. 10/17/2022 13:09 EDT [facility] Addendum electronically signed by Dedrick Quintanilla MD on 10/17/2022 at 1309 Note to Patient The following pathology results have been interpreted by your pathologist and may be available to you before your health provider has had the opportunity to review them. Please allow time for your provider to receive these results and explore management options, if applicable. 10/17/2022 13:09 [facility] Final Diagnosis A. Tongue base, left: -Large B-cell lymphoma, incompletely classified. See comment. 10/17/2022 13:09 [facility] Diagnosis Comment The findings are those of a large B-cell lymphoma that exhibits a non-germinal center immunophenotype and expresses Myc and BCL-2 protein (Double Expressor.) Flow cytometry ([id number]) supports this interpretation. The differential classification of this lesion is diffuse large B-cell lymphoma versus high grade B-cell lymphoma with MYC and BCL-2 rearrangement. Material has been sent to [facility] to assess the status of these genes by FISH and an addendum report with a definitive classification will be issued upon receipt of the result. 10/17/2022 13:09 [facility] Attestation By the signature below, the attending physician certifies that they have 1) personally conducted a gross and/or microscopic examination of the described specimen(s), and/or personally interpreted the results of laboratory testing of the described specimen(s), and 2) personally rendered or confirmed the above diagnosis. 10/17/2022 13:09 [facility] at 1210 Microscopic Description There is a diffuse proliferation of large B-cells below the squamous epithelium. Nuclei are large, oval, and and often contain multiple small nucleoli. Scattered small lymphocytes are present. CD3 (SP7, [employer] Scientific) Background T-cells CD20 (L26, Romulus) diffusely positive in Neoplastic B-cells PAX-5 (1EW, Leica) diffusely positive in Neoplastic B-cells CD10 (SP67, Romulus) Negative BCL-6 (G/191E/A8, Romulus) Positive MUM-1 (MUM1p, Dako) Positive Myc (Y69, Abcam) Positive BCL-2 Oncoprotein (124, Romulus) Positive Ki67 (MIB-1) (K2, Leica) Greater than 95% of cells in cycle Cyclin D1(SP4-R, Romulus) Negative SAPPHIRE JOSE ([id number], Leica) Negative. 10/17/2022 13:09 EDT [facility] Clinical History Massive LAD, history of prostate cancer; clinical diagnosis code: R59.1 10/17/2022 13:09 EDT [facility] Gross Description A. Received in formalin labelled with proper patient identification (initials D, D) and left tongue base are multiple pale plasencia irregular soft tissue fragments which measure 0.8 x 0.6 x 0.5 cm in aggregate and are submitted in toto in A1. TAHMINA NELSON(ASCP) 10/06/2022 15:22 10/17/2022 13:09 EDT [facility] Performing Lab [facility] 13:09 EDT [facility] Scanned Images 10/17/2022 13:09 EDT [facility] Tissue TONGUE STRUCTURE / Unknown 10/05/2022 8:00 EDT 10/06/2022 8:28 EDT Lg Ramírez MD PATHOLOGY ORDERABLES [facility] [address] [place] [address] documented in this encounter Visit Diagnoses Diagnosis Generalized enlarged lymph nodes Enlargement of lymph nodes documented in this encounter Care Teams Director Regulatory Agency Relationship Specialty Start Date End Date Bobby Headley MD [address] [place] [address] PCP - General 01/18/12 documented as of this encounter
--- OUTSIDE RECORDS SUMMARY | 2023-10-03 03:11 | XMS_ITS | Encounter Summary ---
Author Organization [facility] Address [address] [place] [address] Care Team Providers Care Editor Magazine Name Role Phone Unavailable Primary Care Provider Unavailabl e Encounter Details Date Type Department Care Team (Late st Contact Info) Description 01/17/2012 Results Only [facility] Laboratory Services - [facility] ([place]) [address] [place], [place] [id number] Andreas Temple MD [address] [place] [address] Social History Tobacco Use Types [...] ? CHEO MORFIN ? Accession #: ? [id number] ? : ? 1950 (Age: 61) ??M [...] specimens (A) and (B) were reviewed. ??(Dr. Lagos)/[facility] Document reviewed and electronically signed by: DELROY [...] Temple MD PATHOLOGY ORDERABLES Performing Organization Address City/State/[facility] Co de Phone Number [facility] [address] [place] [address] documented in this encounter Visit Diagnoses Not on filedocumented in this encounter
--- OUTSIDE RECORDS SUMMARY | 2023-10-03 03:11 | XMS_ITS | Encounter Summary ---
Author Organization [facility] Address [address] [place] [address] Care Team Providers Care Hammer Operator Name Role Phone Bobby Headley MD Primary Care Provider [phone] Encounter Details Date Type Department Care Team (Late st Contact Info) Description 10/06/2022 Lab Requisition [facility] Pathology & Laboratory Medicine - [facility] [address] [place] [address] Lg Ramírez MD [address] [place] [address] Generalized enlarged lymph nodes Social History [...] Name Priority Date/Time Associated Diagnosis Comments NON APPLICATION SPEC/FNA CYTOLOGY Today 10/05/2022 8:00 EDT Generalized enlarged lymph nodes documented in this encounter Results * NON APPLICATION SPEC/FNA CYTOLOGY (10/05/2022 8:00 EDT) Note to Patient The following pathology results have been interpreted by your pathologist and may be available to you before your health provider has had the opportunity to review them. Please allow time for your provider to receive these results and explore management options, if applicable. 10/09/2022 11:35 EDT [facility] Final Diagnosis A. LYMPH NODE, NECK, LATERALITY NOT SPECIFIED, ULTRASOUND-GUIDED FINE-NEEDLE ASPIRATION: - Mixed lymphoid population present, cannot exclude lymphoproliferative disorder. See comment. - Negative for metastatic carcinoma. 10/09/2022 11:35 [facility] Diagnosis Comment The specimen consists of a single thin prep slide with a mixed population lymphocytes. A lymphoproliferative disorder cannot be excluded based on this specimen alone. Correlation with the concurrent flow cytometry report ([id number]) and surgical biopsy specimen ([id number]) is essential. 10/09/2022 11:35 [facility] Attestation By the signature below, the attending physician certifies that they have personally conducted a gross and/or microscopic examination of the described specimens and rendered or confirmed the above diagnosis. 10/09/2022 11:35 [facility] at [address]5 Clinical History Massive LAD; prostate cancer; R59.1 10/09/2022 11:35 [facility] Gross Description A. One vial of CytoLyt was received and processed by selective cellular enhancement technique. 10/09/2022 11:35 [facility] Performing Lab [facility] 10/09/2022 11:35 [facility] Scanned Images 10/09/2022 11:35 [facility] Fine Needle Aspirate ENTIRE LYMPH NODE / Unknown 10/05/2022 8:00 EDT 10/06/2022 6:21 EDT Lg Ramírez MD PATHOLOGY ORDERABLES [facility] [address] [place] [address] documented in this encounter Visit Diagnoses Diagnosis Generalized enlarged lymph nodes Enlargement of lymph nodes documented in this encounter Care Teams Hammer Operator Relationship Specialty Start Date End Date Bobby Headley MD [address] [place] [phone] PCP - General 01/18/12 documented as of this encounter
--- OUTSIDE RECORDS SUMMARY | 2023-10-03 03:11 | XMS_ITS | Encounter Summary ---
Author Organization [facility] Address [address] [place] [address] Care Team Providers Care Oracle Obiee Developer Name Role Phone Bobby Headley MD Primary Care Provider [phone] Encounter Details Date Type Department Care Team (Late st Contact Info) Description 06/13/2023 Lab Requisition [facility] Pathology & Laboratory Medicine - [facility] [address] [place], [place] [address] Outr Resulting Lab, Provider Social History Tobacco [...] 610 - 1,616 mg/dL 06/14/2023 11:26 EDT [facility] IgA 119 85 - 499 mg/dL 06/14/2023 11:26 EDT [facility] IgM 124 35 - 242 mg/dL 06/14/2023 11:26 EDT [facility] Blood VENOUS BLOOD / Unknown 06/13/2023 10:17 EDT 06/13/2023 17:36 EDT Provider Outr Resulting Lab CHEMISTRY & BLOOD GAS ORDERABLES [facility] [address] [place] [address] documented in this encounter Visit Diagnoses Not on filedocumented in this encounter Care Teams Oracle Obiee Developer Relationship Specialty Start Date End Date Bobby Headley MD [address] [phone] PCP - General 01/18/12 documented as of this encounter
--- OUTSIDE RECORDS SUMMARY | 2023-10-03 03:11 | XMS_ITS | Encounter Summary ---
Author Organization [facility] Address [address] [place] [address] Care Team Providers Care Cooky Machine Operator Name Role Phone Bobby Headley MD Primary Care Provider [phone] Encounter Details Date Type Department Care Team (Late st Contact Info) Description 11/16/2022 Lab Requisition [facility] Pathology & Laboratory Medicine - [facility] [address] [place], [place] [address] Outr Resulting Lab, Provider Social History Tobacco [...] Salmonella PCR Negative Negative 11/16/2022 23:10 EDT [facility] Shigella/Enteroin vasive E. coli Negative Negative 11/16/2022 23:10 EDT [facility] HN LAB CAMPYLOBACTER PCR Negative Negative 11/16/2022 23:10 EDT [facility] Shiga Toxin PCR Negative Negative 23:10 EDT [facility] Feces SPECIMEN FROM RECTUM / Unknown 11/16/2022 0:35 EDT 11/16/2022 18:28 EDT Provider Outr Resulting Lab MICROBIOLOGY - GENERAL ORDERABLES [facility] [address] [place] [address] documented in this encounter Visit Diagnoses Not on filedocumented in this encounter Care Teams Cooky Machine Operator Relationship Specialty Start Date End Date Bobby Headley MD [address] [place] [phone] PCP - General 01/18/12 documented as of this encounter
--- OUTSIDE RECORDS SUMMARY | 2023-10-03 03:11 | XMS_ITS | Encounter Summary ---
Author Organization [facility] Address [address] [place] [address] Care Team Providers Care Spa Concierge Name Role Phone Bobby Headley MD Primary Care Provider [phone] Encounter Details Date Type Department Care Team (Late st Contact Info) Description 09/19/2023 Lab Requisition [facility] Pathology & Laboratory Medicine - [address] [address] Outr Resulting Lab, Provider Social History Tobacco [...] 610 - 1,616 mg/dL 09/20/2023 9:59 EDT [facility] IgA 100 85 - 499 mg/dL 09/20/2023 9:59 EDT [facility] IgM 123 35 - 242 mg/dL 09/20/2023 9:59 EDT [facility] Blood VENOUS BLOOD / Unknown 09/19/2023 7:16 EDT 09/19/2023 16:41 EDT Provider Outr Resulting Lab CHEMISTRY & BLOOD GAS ORDERABLES [facility] [address] [place] [address] documented in this encounter Visit Diagnoses Not on filedocumented in this encounter Care Teams Spa Concierge Relationship Specialty Start Date End Date Bobby Headley MD [address] [place] [address] [phone] PCP - General 01/18/12 documented as of this encounter
--- OUTSIDE RECORDS SUMMARY | 2023-10-03 03:11 | XMS_ITS | Encounter Summary ---
Author Organization [facility] Address [address] [place] [address] Care Team Providers Care Clerk Entry Level Name Role Phone Bobby Headley MD Primary Care Provider [phone] Encounter Details Date Type Department Care Team (Late st Contact Info) Description 09/26/2023 Lab Requisition [facility] Pathology & Laboratory Medicine - [address] [address] Outr Resulting Lab, Provider Social History Tobacco [...] Priority Date/Time Associated Diagnosis Comments IMMUNOGLOBULINS Routine 09/26/2023 7:47 EDT documented in this encounter Results * (ABNORMAL) IMMUNOGLOBULINS (09/26/2023 7:47 EDT) IgG 529(L) 610 - 1,616 mg/dL 09/27/2023 10:20 EDT [facility] IgA 108 85 - 499 mg/dL 09/27/2023 10:20 EDT [facility] IgM 129 35 - 242 mg/dL 09/27/2023 10:20 EDT [facility] Blood VENOUS BLOOD / Unknown 09/26/2023 7:47 EDT 09/26/2023 17:12 EDT Provider Outr Resulting Lab CHEMISTRY & BLOOD GAS ORDERABLES [facility] [address] [place] [address] documented in this encounter Visit Diagnoses Not on filedocumented in this encounter Care Teams Clerk Entry Level Relationship Specialty Start Date End Date Bobby Headley MD [address] [place] [address] [phone] PCP - General 01/18/12 documented as of this encounter
--- OUTSIDE RECORDS SUMMARY | 2023-10-03 03:11 | XMS_ITS | Encounter Summary ---
Author Organization [facility] Address [address] [place] [address] Care Team Providers Care Office Machine Servicer Name Role Phone Bobby Headley MD Primary Care Provider [phone] Encounter Details Date Type Department Care Team (Late st Contact Info) Description 03/22/2022 Lab Requisition [facility] Pathology & Laboratory Medicine - [facility] [address] [place], [place] [id number] Outr Resulting Lab, Provider Social History Tobacco [...] PSA <0.1 <=6.5 ng/mL 03/22/2022 23:03 EST [facility] Blood VENOUS BLOOD / Unknown 03/22/2022 9:35 EST 03/22/2022 21:50 EST Narrative [facility] - 03/22/2022 23:03 EST NOTE: Serum PSA concentration should not be interpreted as absolute evidence for the presence or absence of malignant disease. Assayed on Siemens ADVIA Neurescueaur XPT using chemiluminescent technology.??Values obtained by using different assay methods cannot be used interchangeably. Provider Outr Resulting Lab CHEMISTRY & BLOOD GAS ORDERABLES [facility] [address] [place] [address] documented in this encounter Visit Diagnoses Not on filedocumented in this encounter Care Teams Office Machine Servicer Relationship Specialty Start Date End Date Bobby Headley MD [address] [place] [phone] PCP - General 01/18/12 documented as of this encounter
--- OUTSIDE RECORDS SUMMARY | 2023-10-03 03:11 | XMS_ITS | Encounter Summary ---
Author Organization [facility] Address [address] [place] [address] Care Team Providers Care City Distribution Clerk Name Role Phone Bobby Headley MD Primary Care Provider [phone] Encounter Details Date Type Department Care Team (Late st Contact Info) Description 10/26/2022 Lab Requisition [facility] Pathology & Laboratory Medicine - [address] [address] Outr Resulting Lab, Provider Social History Tobacco [...] Antigen Detection Negative Negative 10/26/2022 23:03 EDT [facility] Urine URINE / Unknown 10/25/2022 6 :05 EDT 10/26/2022 22:47 EDT Provider Outr Resulting Lab MICROBIOLOGY - GENERAL ORDERABLES [facility] [address] [place] [address] documented in this encounter Visit Diagnoses Not on filedocumented in this encounter Care Teams City Distribution Clerk Relationship Specialty Start Date End Date Bobby Headley MD [address] [place] [phone] PCP - General 01/18/12 documented as of this encounter
--- OUTSIDE RECORDS SUMMARY | 2023-10-03 03:11 | XMS_ITS | Clinical Summary ---
Author Organization [facility] Address [address] [place] [address] Care Team Providers Care Orthopaedic General Name Role Phone Bobby Headley MD Primary Care Provider [phone] Encounters Date Type Department Care Team Description 09/26/2023 Lab Requisition [facility] Pathology & Laboratory [address] [address] Outr Resulting Lab, Provider 09/19/2023 Lab Requisition [facility] Pathology & Laboratory [facility] [address] [place] [address] Outr Resulting Lab, Provider from Last 3 [...] Diagnosis Comments IMMUNOGLOBULINS Routine 09/26/2023 7:47 EDT IMMUNOGLOBULINS Routine 09/19/2023 7:16 EDT from Last 3 Months Results * (ABNORMAL) IMMUNOGLOBULINS (09/26/2023 7:47 EDT) Only the most recent of2 resultswithin the time period is included. IgG 529(L) 610 - 1,616 mg/dL 09/27/2023 10:20 EDT [facility] IgA 108 85 - 499 mg/dL 09/27/2023 10:20 EDT [facility] IgM 129 35 - 242 mg/dL 09/27/2023 10:20 EDT [facility] Blood VENOUS BLOOD / Unknown 09/26/2023 7:47 EDT 09/26/2023 17:12 EDT Provider Outr Resulting Lab CHEMISTRY & BLOOD GAS ORDERABLES [facility] [address] [place] [address] from Last 3 Months Care Teams Orthopaedic General Relationship Specialty Start Date End Date Bobby Headley MD [address] [place] [address] [phone] PCP - General 01/18/12
--- OUTSIDE RECORDS SUMMARY | 2023-10-03 03:11 | XMS_ITS | Encounter Summary ---
Author Organization [facility] Address [address] [place] [address] Care Team Providers Care Piece Presser Name Role Phone Bobby Headley MD Primary Care Provider [phone] Encounter Details Date Type Department Care Team (Late st Contact Info) Description 03/11/2021 Lab Requisition [facility] Pathology & Laboratory Medicine - [address] [phone] Outr Resulting Lab, Provider Social History Tobacco [...] 0.0 - 6.5 ng/mL 03/11/2021 21:52 EST [facility] Blood VENOUS BLOOD / Unknown 03/11/2021 12:38 EST 03/11/2021 21:02 EST Narrative [facility] - 03/11/2021 21:52 EST NOTE: Serum PSA concentration should not be interpreted as absolute evidence for the presence or absence of malignant disease. Assayed on Siemens ADVIA [employer] XPT using chemiluminescent technology.??Values obtained by using different assay methods cannot be used interchangeably. Provider Outr Resulting Lab CHEMISTRY & BLOOD GAS ORDERABLES [facility] [address] [place] [address] documented in this encounter Visit Diagnoses Not on filedocumented in this encounter Care Teams Piece Presser Relationship Specialty Start Date End Date Bobby Headley MD [address] [place] [address] [phone] PCP - General 01/18/12 documented as of this encounter
--- OUTSIDE RECORDS SUMMARY | 2023-10-03 03:11 | XMS_ITS | Encounter Summary ---
Author Organization [facility] Address [address] [place] [address] Care Team Providers Care Chief Pharmacist Name Role Phone Bobby Headley MD Primary Care Provider [phone] Encounter Details Date Type Department Care Team (Late st Contact Info) Description 10/11/2022 Lab Requisition [facility] Pathology & Laboratory Medicine - [address] [address] Dedrick Quintanilla MD [address] [facility], Level [address] [place] [address] Encounter for other general examination [...] Caleb Lloyd SEE NOTE 10/16/2022 15:45 EDT [facility] Comment: Test ?Result ?Flag ??Unit [...] Slides, Formalin ??Source ?Tongue ?Tissue ID ? [id number] ?Method ?SEE NOTE ?Locus and probes ? [Strategy;#Nuclei;Class] ?8CEN(D8Z2),8q24.1(MYC),14q32(IGH) ?[DFISH;100;AM] ?8q24.1(5'MYC,3'MYC) ?[BAP;100;AM] ?Probe strategies include: ?DFISH=dual color, double fusion; ?BAP=break-apart probe. ?Scoring Method: Manual ?Probe vendors include: ?AM = [employer] ([place], [place]) ??Additional Information ?Not Reported ?Disclaimer ?SEE NOTE ?Applicable to Analyte Specific Reagent (ASR) and Laboratory ?Developed Tests (LDT). This test was developed and its ?performance characteristics determined by [facility] in a ?manner consistent with CLIA requirements. [...] ? Masha Padilla M.D. ?Test Performed by: ?[facility] [place] ?[address] [place] [address] ?Lead Architect: Jose David Lowry M.D. Ph.D.; CLIA# [id number] Tissue TISSUE SPECIMEN / Unknown 10/05/2022 8:00 EDT 10/11/2022 7:41 EDT Dedrick Quintanilla MD CHEMISTRY & BLOOD GA S ORDERABLES Performing Organization Address City/State/[facility] Co de Phone Number [facility] [address] [place] [address] documented in this encounter Visit Diagnoses Diagnosis Encounter for other general examination documented in this encounter Care Teams Chief Pharmacist Relationship Specialty Start Date End Date Bobby Headley MD [address] [place] [phone] PCP - General 01/18/12 documented as of this encounter
--- OUTSIDE RECORDS SUMMARY | 2023-10-03 03:11 | XMS_ITS | Encounter Summary ---
Author Organization [facility] Address [address] [place] [address] Care Team Providers Care Pv Installer Tech Name Role Phone Bobby Headley MD Primary Care Provider [phone] Encounter Details Date Type Department Care Team (Late st Contact Info) Description 10/11/2022 Lab Requisition [facility] Pathology & Laboratory Medicine - [facility] [address] [place], [place] [address] Outr Resulting Lab, Provider Social History Tobacco [...] 610 - 1,616 mg/dL 10/12/2022 9:35 EDT [facility] IgA 182 85 - 499 mg/dL 10/12/2022 9:35 EDT [facility] IgM 233 35 - 242 mg/dL 10/12/2022 9:35 EDT [facility] Blood VENOUS BLOOD / Unknown 10/11/2022 10:55 EDT 10/11/2022 17:38 EDT Provider Outr Resulting Lab CHEMISTRY & BLOOD GAS ORDERABLES [facility] [address] [place] [address] documented in this encounter Visit Diagnoses Not on filedocumented in this encounter Care Teams Pv Installer Tech Relationship Specialty Start Date End Date Bobby Headley MD [address] [place] [id number] PCP - General 01/18/12 documented as of this encounter
--- OUTSIDE RECORDS SUMMARY | 2023-10-03 03:11 | XMS_ITS | Encounter Summary ---
Author Organization [facility] Address [address] [place] [address] Care Team Providers Care Drill Press Operator For Metal Name Role Phone Bobby Headley MD Primary Care Provider [phone] Encounter Details Date Type Department Care Team (Latest Contact Info) Description 09/01/2014 13:19 EDT - 09/01/2014 23:59 EDT Hospital Encounter [address] [address] Unknown, Provider, Discharge Disposition: Home or Self Care Social History Tobacco Use Types Packs/Day Years Used Date Smoking Tobacco: Never Assessed Sex and Gender Information Value Date Recorded Sex Assigned at Not on file Gender Identity Not on file Sexual Orientation Not on file documented as of this encounter Discharge Disposition Disposition Code Departure Means Destination Home or Self [facility] documented in this encounter Plan of Treatment Not on file documented as of this encounter Visit Diagnoses Not on filedocumented in this encounter Care Teams Drill Press Operator For Metal Relationship Specialty Start Date End Date Bobby Headley MD [address] [place] [phone] PCP - General 01/18/12 documented as of this encounter
--- OUTSIDE RECORDS SUMMARY | 2023-10-03 03:11 | XMS_ITS | Encounter Summary ---
Author Organization [facility] Address [address] [place] [address] Care Team Providers Care Speech Language Pathologist Prn Name Role Phone Bobby Headley MD Primary Care Provider [phone] Encounter Details Date Type Department Care Team (Late st Contact Info) Description 10/06/2022 Lab Requisition [facility] Pathology & Laboratory Medicine - [address] [address] Outr Resulting Lab, Provider Social History Tobacco [...] on filedocumented in this encounter Care Teams Speech Language Pathologist Prn Relationship Specialty Start Date End Date Bobby Headley MD [address] [place] [phone] PCP - General 01/18/12 documented as of this encounter
--- OUTSIDE RECORDS SUMMARY | 2023-10-03 03:11 | XMS_ITS | Encounter Summary ---
Author Organization [facility] Address [address] [place] [address] Care Team Providers Care Building Construction Supervisor Name Role Phone Bobby Headley MD Primary Care Provider [phone] Encounter Details Date Type Department Care Team (Late st Contact Info) Description 03/10/2019 Lab Requisition [facility] Pathology & Laboratory Medicine - [facility] [address] [place] [address] Unknown, Provider, Social History Tobacco Use Types [...] 0.0 - 6.5 ng/mL 03/11/2019 10:56 EST [facility] Blood VENOUS BLOOD / Unknown 03/10/2019 9:05 EST 03/10/2019 15:40 EST Narrative [facility] - 03/11/2019 10:56 EST NOTE: Serum PSA concentration should not be interpreted as absolute evidence for the presence or absence of malignant disease. Assayed on Siemens ADVIA 3dimaur XPT using chemiluminescent technology.??Values obtained by using different assay methods cannot be used interchangeably. Provider Unknown CHEMISTRY & BLOOD GA S ORDERABLES [facility] [address] [place] [address] documented in this encounter Visit Diagnoses Not on filedocumented in this encounter Care Teams Building Construction Supervisor Relationship Specialty Start Date End Date Bobby Headley MD [address] [place] [phone] PCP - General 01/18/12 documented as of this encounter
--- OUTSIDE RECORDS SUMMARY | 2023-10-03 03:11 | XMS_ITS | Encounter Summary ---
Author Organization [facility] Address [address] [place] [address] Care Team Providers Care Horizontal Boring Mill Set Up Operator Name Role Phone Bobby Headley MD Primary Care Provider [phone] Encounter Details Date Type Department Care Team (Late st Contact Info) Description 10/06/2022 Lab Requisition [facility] Pathology & Laboratory Medicine - [facility] [address] [place] [address] Lg Ramírez MD [address] [place] [phone] Generalized enlarged lymph nodes Social History [...] B-cell lymphoproliferative disorder. See comment. 12:09 EDT [facility] Comment The results of flow cytometry are those of involvement by a lymphoproliferative disorder of B-cell lineage expressing surface lambda light chains. The immunophenotypic profile is non-specific.. Cell size, as assessed by light scatter criteria, suggests a large B-cell lymphoma. Correlation of these findings with morphologic and clinical data is essential. Please refer to report [id number] for morphologic details. 3 12:09 [facility] Attestation By the signature below, the attending physician certifies that they have 1) personally conducted a gross and/or microscopic examination of the described specimen(s), and/or personally interpreted the results of laboratory testing of the described specimen(s), and 2) personally rendered or confirmed the above diagnosis. 3 12:09 [facility] at 1209 Clinical History 72 yo male with massive LAD (cervical/tongue/ret rophar.) 3 12:09 [facility] Description The specimen consists of [...] CD4+ and CD8+ subsets represented. 3 12:09 [facility] Flow Markers CD10, CD19, CD20, CD3, CD4, CD45, CD5, CD8, [place], and Lambda 3 12:09 [facility] FDA Disclaimer This test was developed and its performance characteristics determined by the Department of Pathology and Laboratory Medicine, [facility], [place], [place] It has not been cleared or [...] complexity clinical laboratory testing. 3 12:09 EDT [facility] Sample Analyzed Date and Time 10/06/22 12:30 3 12:09 EDT [facility] Scanned Images 3 12:09 EDT [facility] Tissue STRUCTURE OF ROOT OF TONGUE / Unknown 10/05/2022 8:00 EDT 10/06/2022 9:32 EDT Lg Ramírez MD PATHOLOGY ORDERABLES [facility] [address] [place] [address] documented in this encounter Visit Diagnoses Diagnosis Generalized enlarged lymph nodes Enlargement of lymph nodes documented in this encounter Care Teams Horizontal Boring Mill Set Up Operator Relationship Specialty Start Date End Date Bobby Headley MD [address] [place] [id number] PCP - General 01/18/12 documented as of this encounter
--- OUTSIDE RECORDS SUMMARY | 2023-10-03 03:11 | XMS_ITS | Encounter Summary ---
Author Organization [facility] Address [address] [place] [address] Care Team Providers Care Shrimp Picker Name Role Phone Bobby Headley MD Primary Care Provider [phone] Encounter Details Date Type Department Care Team (Late st Contact Info) Description 09/01/2014 Results Only [facility]- [facility] [phone] Tk Vergara MD [address] [place] [address] Social History Tobacco Use Types Packs/Day Years [...] ? CHEO MORFIN ? Accession #: ? [id number] ? : ? 1950 (Age: 64) ??M [...] = 7 (60% 4) ? - Primary Hammond pattern: ? Grade 4 ? - Secondary Hammond pattern: ? Grade 3 ? - Total [...] William 09/03/2014 9:00 AM End of Report [facility] 09/01/2014 18:1 6 EDT 09/02/2014 18:16 EDT Tk Vergara MD PATHOLOGY ORDERABLES [facility] [address] [place] [address] documented in this encounter Visit Diagnoses Not on filedocumented in this encounter Care Teams Shrimp Picker Relationship Specialty Start Date End Date Bobby Headley MD [address] [place] [phone] PCP - General 01/18/12 documented as of this encounter
--- OUTSIDE RECORDS SUMMARY | 2023-10-03 03:11 | XMS_ITS | Encounter Summary ---
Author Organization [facility] Address [address] [place] [address] Care Team Providers Care Sap Architect Name Role Phone Unavailable Primary Care Provider Unavailabl e Encounter Details Date Type Department Care Team (Late st Contact Info) Description 12/19/2006 Results Only [facility] [place] [facility] [address] [place] [address] Micha Pineda MD [address] [place] [phone] Social History Tobacco Use Types Packs/Day Years [...] ? CHEO MORFIN ? Accession #: ? [id number] ? : ? 1950 (Age: 56) ??M [...] specimen is entirely submitted as (C). ??(Dr. Echavarria)/[facility] End of Report [facility] 12/19/2006 12/19/2006 15: 40 EDT Micha Pineda MD PATHOLOGY ORDERABLES Performing Organization Address City/State/[facility] Co de Phone Number [facility] [address] [place] [address] documented in this encounter Visit Diagnoses Not on filedocumented in this encounter
--- OUTSIDE RECORDS SUMMARY | 2023-10-03 03:11 | XMS_ITS | Encounter Summary ---
Author Organization [facility] Address [address] [place] [address] Care Team Providers Care Fishing Rod Marker Name Role Phone Bobby Headley MD Primary Care Provider [phone] Encounter Details Date Type Department Care Team (Late st Contact Info) Description 03/05/2020 Lab Requisition [facility] Pathology & Laboratory Medicine - [address] [phone] Outr Resulting Lab, Provider Social History Tobacco [...] 0.0 - 6.5 ng/mL 03/06/2020 0:00 EST [facility] Blood VENOUS BLOOD / Unknown 03/05/2020 7:50 EST 03/05/2020 17:28 EST Narrative [facility] - 03/06/2020 0:00 EST NOTE: Serum PSA concentration should not be interpreted as absolute evidence for the presence or absence of malignant disease. Assayed on Siemens [employer] XPT using chemiluminescent technology.??Values obtained by using different assay methods cannot be used interchangeably. Provider Outr Resulting Lab CHEMISTRY & BLOOD GAS ORDERABLES [facility] [address] [place] [address] documented in this encounter Visit Diagnoses Not on filedocumented in this encounter Care Teams Fishing Rod Marker Relationship Specialty Start Date End Date Bobby Headley MD [address] [place] [phone] PCP - General 01/18/12 documented as of this encounter
--- OUTSIDE RECORDS SUMMARY | 2023-10-03 03:11 | XMS_ITS | Encounter Summary ---
Author Organization [facility] Address [address] [place] [address] Care Team Providers Care Business Consult Name Role Phone Unavailable Primary Care Provider Unavailabl e Encounter Details Date Type Department Care Team (Late st Contact Info) Description 08/24/1999 Results Only [facility] conversion [address] [place] [address] Micha Pineda MD [address] [place] [phone] Social History Tobacco Use Types Packs/Day Years [...] ? CHEO MORFIN ? Accession #: ? [id number] ? : ? 1950 (Age: 49) ??M ? Collect Date: ? 08/24/1999 ? Location: ? [facility] ? Receive Date: ? 08/24/1999 ? Provider: RHYS PINEDA MD Copy to: MARY HEWITT MD ? Final Pathologic Diagnosis: ? Colon, left transverse (80 cm), biopsies: - Hyperplastic polyp. Document reviewed and electronically signed by: Tresa Waite [facility] Report ??Date: 08/26/1999 16:44 By [...] MD PATHOLOGY ORDERABLES [facility] [address] [place] [address] documented in this encounter Visit Diagnoses Not on filedocumented in this encounter
--- OUTSIDE RECORDS SUMMARY | 2023-10-03 03:11 | XMS_ITS | Referral Summary ---
Author Organization [facility] Address [address] [place] [address] Care Team Providers Care Potter Or Ceramic Artist Name Role Phone Bobby Headley MD Primary Care Provider [phone] Encounters Date Type Department Care Team Description 09/26/2023 Lab Requisition [facility] Pathology & Laboratory [address] [address] Outr Resulting Lab, Provider 09/19/2023 Lab Requisition [facility] Pathology & Laboratory [facility] [address] [place] [address] Outr Resulting Lab, Provider from Last 3 [...] 610 - 1,616 mg/dL 09/27/2023 10:[address] [facility] IgA 108 85 - 499 mg/dL 09/27/2023 10:[address] [facility] IgM 129 35 - 242 mg/dL 09/27/2023 10:[address] [facility] Blood VENOUS BLOOD / Unknown 09/26/2023 7:47 EDT 09/26/2023 17:12 EDT Provider Outr Resulting Lab CHEMISTRY & BLOOD GAS ORDERABLES [facility] [address] [place] [address] from Last 3 Months Care Teams Potter Or Ceramic Artist Relationship Specialty Start Date End Date Bobby Headley MD [address] [place] [phone] PCP - General 01/18/12
--- OUTSIDE RECORDS SUMMARY | 2023-10-03 03:12 | XMS_ITS | Encounter Summary ---
Author Organization [facility] [place] [address] Care Team Providers Care Undercollar Baster Name Role Phone Frederick Meade MD Primary Care Provider [phone] Encounter Details Date Type Department Care Team (Latest Contact Info) Description 09/26/2023 Travel Social History Tobacco Use Types Packs/Day [...] Team (Late st Contact Info) Description 10/03/2023 10:00 AM EDT Office Visit Hematology/Oncology at [address] [phone] Adrianne Ramon MD [facility] [address] [place] [address] Yael Merlos APRN [facility] DR [place] [address] 10/03/2023 10:30 AM EDT Infusion Hematology Oncology at [address] [phone] 10/10/2023 2:45 PM EDT Appointment XRay at [address] [place] [address] Micha Givens Jr., MD [facility] [place] [address] 10/10/2023 3:00 PM EDT Appointment Non-[place]vasive [place] [phone] 10/10/2023 3:30 PM EDT Appoint[place] [address] 10/11/2023 8:30 AM EDT Infusion Hematology Oncology at [address] [phone] documented as of this encounter Visit Diagnoses Not on filedocumented in this encounter Care Teams Undercollar Baster Relationship Specialty Start Date End Date Frederick Meade MD [address] [facility] 1 [place] [address] PCP - General Family Medicine 11/29/17 documented as of this encounter
--- OUTSIDE RECORDS SUMMARY | 2023-10-03 03:12 | XMS_ITS | Encounter Summary ---
Author Organization [facility] Address [facility] [place] [address] Care Team Providers Care Home Care Scheduler Name Role Phone Frederick Meade MD Primary Care Provider [phone] Reason for Visit * Reason Onset Date Comments Hyperglycemia 09/26/2023 Encounter Details Date Type Department Care Team (Late st Contact Info) Description 09/26/2023 Notes Only Hematology [place] [address] Yael Merlos APRN [facility] [place] [address] Hyperglycemia Social History Tobacco Use Types Packs/Day Years [...] as of this encounter Progress Notes * Yael Merlos, TRANSFORMATION SPECIALIST - 09/26/2023 11:21 AM EDT Cheo returns to clinic today for continued treatment with Revlimid and Rituxan. Today is day 8 ofcycle #1. He is scheduled to receive a dose of Rituxan today. [facility] a serum glucose of 605mg/dL. Cheo monitors his blood sugar periodically at home though has not been diagnosed or treated for glucose intolerance though his recalls him receiving insulin for a short time while hospitalized in the past contributed to steroids. He did not have significant problems with his 6 cycles of R-CHOP chemotherapy completed in 01/2023. On questioning, Cheo describes increased thirst and urination which he attributed to instruction to drink more fluids but may also be indicative of elevated blood glucose. Otherwise no symptoms. 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 He was prescribed the following Prednisone schedule; 100mg/d x 3 days, 80mg/d x 3 days; 60mg/d x 3 days; 40mg/d x 3 days; 20mg/d x 3 days. I reached out to PCP office this morning. Dr. Mack was not working today. I spoke with Dr. Flanagan who will prescribe insulin for Cheo to begin this evening at 20 units [70/30 insulin] BID. Heis to check his blood sugar QID and report results to Dr. Meade's office on Sunday. We will do SQ injection technique which Cheo and his are in clinic. I have asked the clinical senior account director to stop by and review dietary recommendations. Yael Merlos, MSN, TRANSFORMATION SPECIALIST Nurse practitioner Section of Hematology documented in this encounter Plan of Treatment Upcoming Encounters Date Type Department Care Team (Late st Contact Info) Description 10/03/2023 10:00 AM EDT Office Visit Hematology/Oncology at [address] [phone] Adrianne Ramon MD [facility] [place] [address] Yael Merlos APRN [facility] [place] [address] 10/03/2023 10:30 AM EDT Infusion Hematology Oncology at [address] [phone] 10/10/2023 2:45 PM EDT Appointment XRay at [address] [place] [address] Micha Givens Jr., MD [facility] [place] [address] 10/10/2023 3:00 PM EDT Appointment Non-[place] [address] 10/10/2023 3:30 PM EDT [place]oint[place] [address] 10/11/2023 8:30 AM EDT Infusion Hematology Oncology at [address] [phone] documented as of this encounter Visit Diagnoses Not on filedocumented in this encounter Care Teams Home Care Scheduler Relationship Specialty Start Date End Date Frederick Meade MD [address] [place] [address] [place] [address] PCP - General Family Medicine 11/29/17 documented as of this encounter
--- OUTSIDE RECORDS SUMMARY | 2023-10-03 03:12 | XMS_ITS | Encounter Summary ---
Author Organization [facility] Address [facility] [place] [address] Care Team Providers Care Certified Detention Deputy Name Role Phone Frederick Meade MD Primary Care Provider [phone] Reason for Visit * Reason Comments Chemotherapy * Treatment/Therapy Plan Authorization (Routine) - Authorized Specialty Diagnoses / Procedures Referred By Contac t Referred To Contact Hematology and Oncology Diagnoses Diffuse large B-cell lymphoma of lymph nodes of multiple regions Ardianne Ramon MD [facility] DR HEMATOLOGY [place] [address] Stj Hem Onc Infusion [address] [place] [phone] Referral ID Status Reason Start Date Expiration Date V isits Requested Visits Authorized [id number] Authorized 09/12/2023 09/11/2024 99 99 Encounter Details Date Type Department Care Team (Late st Contact Info) Description 09/19/2023 8:00 AM EDT Infusion Hematology Oncology at [address] [phone] Diffuse large B-cell lymphoma of [...] treatment. OBJECTIVE LAB DATA: completed today at [facility] Pre administration: Chemotherapy orders [...] 10:00 AM EDT Office Visit Hematology/Oncology at [address] [phone] Adrianne Ramon MD [facility] HEMATOLOGY [place] [address] Yael Merlos APRN [facility] HEMATOLOGY [place] [address] 10/03/2023 10:30 AM EDT Infusion Hematology Oncology at [address] [phone] 10/10/2023 2:45 PM EDT Appointment XRay at [address] [place] [address] Micha Givens Jr., MD [facility] HEMATOLOGY [place] [address] 10/10/2023 3:00 PM EDT Appointment Non[place] [address] 10/10/2023 3:30 PM EDT Appointment [place] [address] 10/11/2023 8:30 AM EDT Infusion Hematology Oncology at [address] [phone] documented as of this encounter [...] mL/hr documented in this encounter Care Teams Certified Detention Deputy Relationship Specialty Start Date End Date Frederick Meade MD [address] [place] [address] [facility] [place] [address] PCP - General Family Medicine 11/29/17 documented as of this encounter
--- OUTSIDE RECORDS SUMMARY | 2023-10-03 03:12 | XMS_ITS | Encounter Summary ---
Author Organization [place] [address] Care Team Providers Care Online Merchandising Manager Name Role Phone Frederick Meade MD Primary Care Provider [phone] Encounter Details Date Type Department Care Team [...] 10:00 AM EDT Office Visit Hematology/Oncology at [address] [phone] Adrianne Ramon MD [facility] DR [place] [address] Yael Merlos APRN [facility] DR [place] [address] 10/03/2023 10:30 AM EDT Infusion Hematology Oncology at [address] [phone] 10/10/2023 2:45 PM EDT Appointment XRay at [address] [place] [address] Micha Givesn Jr., MD [facility] [place] [address] 10/10/2023 3:00 PM EDT Appointment Non-[place]vasive [place] [phone] 10/10/2023 3:30 PM EDT Appointment [place] [address] 10/11/2023 8:30 AM EDT Infusion Hematology Oncology at [address] [phone] documented as of this encounter Visit Diagnoses Not on filedocumented in this encounter Care Teams Online Merchandising Manager Relationship Specialty Start Date End Date Frederick Meade MD [address] [facility] 1 [place] [address] PCP - General Family Medicine 11/29/17 documented as of this encounter
--- OUTSIDE RECORDS SUMMARY | 2023-10-03 03:12 | XMS_ITS | Encounter Summary ---
Author Organization [facility] Address [facility] [place] [address] Care Team Providers Care Senior Production Planner Name Role Phone Frederick Meade MD Primary Care Provider [phone] Encounter Details Date Type Department Care Team (Late st Contact Info) Description 09/12/2023 Telephone Hematology/Oncology at [address] [phone] Adrianne Ramon MD [facility] DR [place] [address] Social History Tobacco Use Types Packs/Day Years [...] 10:00 AM EDT Office Visit Hematology/Oncology at [address] [phone] Adrianne Ramon MD [facility] HEMATOLOGY [place] [address] Yael Merlos APRN [facility] HEMATOLOGY [place] [address] 10/03/2023 10:30 AM EDT Infusion Hematology Oncology at [address] [phone] 10/10/2023 2:45 PM EDT Appointment XRay at [address] [place] [phone] Micha Givens Jr., MD [facility] HEMATOLOGY AND [place] [address] 10/10/2023 3:00 PM EDT Appointment Non-[place]vasive [place] [phone] 10/10/2023 3:30 PM EDT Appointment [place] [address] 10/11/2023 8:30 AM EDT Infusion Hematology Oncology at [address] [phone] documented as of this encounter Visit Diagnoses Diagnosis Diffuse large B-cell lymphoma of lymph nodes of multiple regions documented in this encounter Care Teams Senior Production Planner Relationship Specialty Start Date End Date Frederick Meade MD [address] [place] [address] PCP - General Family Medicine 11/29/17 documented as of this encounter
--- OUTSIDE RECORDS SUMMARY | 2023-10-03 03:12 | XMS_ITS | Encounter Summary ---
Author Organization [facility] Address [facility] [place] [address] Care Team Providers Care Aircraft Mechanic Name Role Phone Frederick Meade MD Primary Care Provider [phone] Reason for Visit * Reason Onset Date Comments Follow-up 09/19/[address] obrien thru [facility] Encounter Details Date Type Department Care Team (Late st Contact Info) Description 09/19/2023 Telephone Hematology/Oncology at [address] [phone] Polly Orellana, OSCAR Follow-up (Possible [...] - 09/19/2023 11:05 AM EDT Spoke with [employer] pt assistance [employer]. Pt at present received revlimid with a copay of 157$ after getting $4000 thru [employer]. He is getting drug from [facility]. When next script is sent in if pt still has high copay and there is no funding we can call [employer] at [phone] fax [phone] and request assistance for pt again and they will resubmit the paper work they have on him for free drug. documented in this encounter Plan of Treatment Upcoming Encounters Date Type Department Care Team (Late st Contact Info) Description 10/03/2023 10:00 AM EDT Office Visit Hematology/Oncology at [address] [phone] Adrianne Ramon MD [facility] DR [place] [address] Yael Merlos APRN [facility] [place] [address] 10/03/2023 10:30 AM EDT Infusion Hematology Oncology at [address] [phone] 10/10/2023 2:45 PM EDT Appointment XRay at [address] [place] [address] Micha Givens Jr., MD [facility] HEMATOLOGY [place] [address] 10/10/2023 3:00 PM EDT Appointment Non-[place]vasive [place] [phone] 10/10/2023 3:30 PM EDT Appointment [place] [address] 10/11/2023 8:30 AM EDT Infusion Hematology Oncology at [address] [phone] documented as of this encounter Visit Diagnoses Not on filedocumented in this encounter Care Teams Aircraft Mechanic Relationship Specialty Start Date End Date Frederick Meade MD [address] [place] [address] [address] PCP - General Family Medicine 11/29/17 documented as of this encounter
--- OUTSIDE RECORDS SUMMARY | 2023-10-03 03:12 | XMS_ITS | Encounter Summary ---
Author Organization [facility] [place] [facility] Address [facility] [address] Care Team Providers Care Banquet Chef Name Role Phone Frederick Meade MD Primary Care Provider +1 [phone] Encounter Details Date Type Department Care Team (Late st Contact Info) Description 09/19/2023 Notes Only Hematology/Oncology at [address] [phone] Shelley Cason, [facility] Social History Tobacco [...] are managing otherwise. Reminded them of the [facility] if they needs to apply for another [...] did not identify any specific needs today. FINANCIAL SALES REPRESENTATIVE will follow for support and resources. Brief assessment Supportive Counseling Financial resources documented in this encounter Plan of Treatment Upcoming Encounters Date Type Department Care Team (Late st Contact Info) Description 10/03/2023 10:00 AM EDT Office Visit Hematology/Oncology at [address] [phone] Adrianne Ramon MD [facility] [place] [address] Yael Merlos, METERMAN [facility] [place] [address] 10/03/2023 10:30 AM EDT Infusion Hematology Oncology at [address] [phone] 10/10/2023 2:45 PM EDT Appointment XRay at [address] [place] [address] Micha Givens Jr., MD [facility] [place] [address] 10/10/2023 3:00 PM EDT Appointment Non[place] [address] 10/10/2023 3:30 PM EDT Appointment [place] [address] 10/11/2023 8:30 AM EDT Infusion Hematology Oncology at [address] [phone] documented as of this encounter Visit Diagnoses Not on filedocumented in this encounter Care Teams Banquet Chef Relationship Specialty Start Date End Date Frederick Meade MD [address] [place] [address] [address] [place] [address] PCP - General Family Medicine 11/29/17 documented as of this encounter
--- OUTSIDE RECORDS SUMMARY | 2023-10-03 03:12 | XMS_ITS | Encounter Summary ---
Author Organization [facility] [place] [address] Care Team Providers Care Product Marketing Director Name Role Phone Frederick Meade MD Primary Care Provider [phone] [phone] Reason for Visit * Reason Onset Date Comments Constipation 09/28/2023 Encounter Details Date Type Department Care Team (Late st Contact Info) Description 09/28/2023 Telephone Hematology/Oncology at [address] [phone] Colt Ardon RN Constipation Social History Tobacco Use Types Packs/Day Years [...] Telephone Encounter - Colt Ardon RN - 09/28/2023 12:18 PM EDT Reason for Call: Constipation Brief Health History (Onset, Location, Duration, Characteristics, Aggravating Factors, Relieving Factors/Radiation,Timing, and Severity): Pt and Claritza calling to report constipation. Says pt typically goes every day after breakfast. He did have a small BM yesterday afternoon. He is passing flatus. Denies any abdominal pain at this time. Asking what he should use if constipation worsens. Per Constipation protocol can start with Senna or Colace 1-2 tablets per day. This can be increased per instructions and also discussed adding in Miralax or Metamucil as well. They do have on-call number should any issues arise over the weekend. Worsening Symptoms: Emphasized symptoms that require emergent/urgent care according to EPIC protocol utilized or other documented decision support tool. Patient able to teach back worsening symptoms and action to take. Patient/Caregiver demonstrates understanding via teach back: Yes Disposition: follow constipation protocol home instructions documented in this encounter Plan of Treatment Upcoming Encounters Date Type Department Care Team (Late st Contact Info) Description 10/03/2023 10:00 AM EDT Office Visit Hematology/Oncology at [address] [phone] Adrianne Ramon MD [facility] DR [place] [address] Yael Merlos APRN [facility] DR HEMATOLOGY [place] [address] 10/03/2023 10:30 AM EDT Infusion Hematology Oncology at [address] [phone] 10/10/2023 2:45 PM EDT Appointment XRay at [address] [place] [address] Micha Givens Jr., MD [facility] HEMATOLOGY [place] [address] 10/10/2023 3:00 PM EDT Appointment Non-[place] [address] 10/10/2023 3:30 PM EDT Appointment [place] [address] 10/11/2023 8:30 AM EDT Infusion Hematology Oncology at [address] [phone] documented as of this encounter Visit Diagnoses Not on filedocumented in this encounter Care Teams Product Marketing Director Relationship Specialty Start Date End Date Frederick Meade MD [address] [place] [address] [address] [facility] 1 [place] [address] PCP - General Family Medicine 11/29/17 documented as of this encounter
--- OUTSIDE RECORDS SUMMARY | 2023-10-03 03:12 | XMS_ITS | Encounter Summary ---
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 Pre-op testing Micha Givens Jr., MD [facility] DR [place] [address] [facility] [place] [place] [address] Referral ID Status Reason Start Date Expiration Date Visits Requested Visits Authorized [id number] Authorized Continuity of Care 09/21/2023 09/20/2024 1 1 Encounter Details Date Type Department Care Team (Late st Contact Info) Description 09/25/2023 10:00 AM EDT Telephone Hematology [place] [phone] Elva Sutherland RD [facility] [place] [place] [address] Social History Tobacco Use Types Packs/Day Years [...] Sutherland, RD - 09/25/2023 9:01 AM EDT [facility] BMT Pretransplant NutritionTeaching Pt: Cheo Freire HPI: [...] cheeses including brie, camembert, feta, cheatham's -- Bahamian style soft cheeses including queso francisco, and queso fresco -- Citizen Of [place] containing chili pepper or other uncooked vegetables [...] use well water include filtration, distillation, boiling --https://www.cdc.gov/healthywater/drinking/scuw-uvnas-uawdqqawp/household_water _treatment.html --ht tps://www.cdc.gov/healthywater/pdf/drinking/household_water_treatment.pdf --https://www.cdc.gov/healthywater/drinking/aiywvqge-gqgid-vup.html#how_bwa -Well water must be boiled for 1 [...] at future lab draw. Educational material provided: [facility] Food Safety Guidelines for the Patient with [...] AM EDT Office Visit Hematology/Oncology at [address] [phone] Adrianne Ramon MD [facility] DR HEMATOLOGY [place] [address] Yael Merlos APRN [facility] HEMATOLOGY [place] [address] 10/03/2023 10:30 AM EDT Infusion Hematology Oncology at [address] [phone] 10/10/2023 2:45 PM EDT Appointment XRay at [address] [place] [address] Micha Givens Jr., MD [facility] HEMATOLOGY [place] [address] 10/10/2023 3:00 PM EDT Appointment Non-Invasive [place] [address] 10/10/2023 3:30 PM EDT Appointment [place] [address] 10/11/2023 8:30 AM EDT Infusion Hematology Oncology at [address] [phone] documented as of this encounter Visit Diagnoses Not on filedocumented in this encounter Care Teams Chip Frier Relationship Specialty Start Date End Date Frederick Meade MD [address] [facility] [address] [place] [address] PCP - General Family Medicine 11/29/17 documented as of this encounter
--- OUTSIDE RECORDS SUMMARY | 2023-10-03 03:12 | XMS_ITS | Encounter Summary ---
Author Organization [facility] [place] [address] Care Team Providers Care Technology Sales Representative Name Role Phone Frederick Meade MD Primary Care Provider [phone] [phone] Reason for Referral * Consultation (Routine) - Authorized Specialty Diagnoses / Procedures Referred By Paul bowen Referred To Contact Gastroenterology Diagnoses Screening for colon cancer 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 Pre-op testing Micha Givens Jr., MD [facility] [place] [address] Referral ID Status Reason Start Date Expiration Date Visits Requested Visits Authorized [id number] Authorized Test Only 09/26/2023 03/24/2024 1 1 Encounter Details Date Type Department Care Team (Late st Contact Info) Description 09/25/2023 Orders Only Hematology [place] [address] Micha Givens Jr., MD [facility] [place] [address] Screening for colon cancer; Diffuse large B-cell [...] 10:00 AM EDT Office Visit Hematology/Oncology at [address] [phone] Adrianne Ramon MD [facility] HEMATOLOGY [place] [address] Yael Merlos APRN [facility] HEMATOLOGY [place] [address] 10/03/2023 10:30 AM EDT Infusion Hematology Oncology at [address] [phone] 10/10/2023 2:45 PM EDT Appointment XRay at [address] [place] [address] Micha Givens Jr., MD [facility] DR HEMATOLOGY [place] [address] 10/10/2023 3:00 PM EDT Appointment [place] [address] 10/10/2023 3:30 PM EDT Appointment [place] [address] 10/11/2023 8:30 AM EDT Infusion Hematology Oncology at [address] [phone] Scheduled Referrals Name Type Priority Associated Diagnoses Order Schedule REFERRAL TO COLONOSCOPY PROCEDURE Outpatient Referral Routine Screening for colon cancer 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 Pre-op testing Ordered: 09/26/2023 documented as of this encounter Visit Diagnoses Diagnosis Screening for colon cancer Special screening for malignant neoplasms, colon 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 Pre-op testing Preoperative examination, unspecified documented in this encounter Care Teams Technology Sales Representative Relationship Specialty Start Date End Date Frederick Meade MD [address] [facility] [address] [facility] 1 [place] [address] PCP - General Family Medicine 11/29/17 documented as of this encounter
--- OUTSIDE RECORDS SUMMARY | 2023-10-03 03:12 | XMS_ITS | Encounter Summary ---
Author Organization [facility] Address [facility] [place] [address] Care Team Providers Care Medicine Teacher Name Role Phone Frederick Meade MD Primary Care Provider [phone] [phone] Encounter Details Date Type Department Care Team (Late st Contact Info) Description 09/19/2023 Orders Only Hematology [place] [address] Adrianne Ramon MD [facility] DR [place] [address] Social History Tobacco Use Types Packs/Day Years [...] 10:00 AM EDT Office Visit Hematology/Oncology at [address] [phone] Adrianne Ramon MD [facility] HEMATOLOGY AND ONCOLOGY [place] [address] Yael Merlos APRN [facility] HEMATOLOGY AND ONCOLOGY [place] [address] 10/03/2023 10:30 AM EDT Infusion Hematology Oncology at [address] [phone] 10/10/2023 2:45 PM EDT Appointment XRay at [address] [place] [phone] Micha Givens Jr., MD [facility] DR [place] [address] 10/10/2023 3:00 PM EDT Appointment Non-Invasive [place] [phone] 10/10/2023 3:30 PM EDT Appoint[place] [phone] 10/11/2023 8:30 AM EDT Infusion Hematology Oncology at [address] [phone] documented as of this encounter Visit Diagnoses Not on filedocumented in this encounter Care Teams Medicine Teacher Relationship Specialty Start Date End Date Frederick Meade MD [address] [place] [address] PCP - General Family Medicine 11/29/17 documented as of this encounter
--- OUTSIDE RECORDS SUMMARY | 2023-10-03 03:12 | XMS_ITS | Encounter Summary ---
Author Organization [facility] Address [facility] [place] [address] Care Team Providers Care Ap Operator Name Role Phone Frederick Meade MD Primary Care Provider [phone] [phone] Encounter Details Date Type Department Care Team (Latest Contact Info) Description 09/26/2023 Unscheduled Encounter Hematology/Oncology at [address] [phone] Nimisha Hale, RD [facility] DR HEMATOLOGY [place] [address] Diffuse large B-cell lymphoma of lymph nodes [...] as of this encounter Progress Notes * Alexia Nimisha Tapia, RD - 09/26/2023 11:49 AM EDT Nutrition Note Spoke with Cheo and his during infusion today. It is C1 D8 of Revlimid with Retuxan. He completed 6 cycles of R-CHOP chemotherapy in January 2023. Patient has diagnosis of DLBCL and is a candidate for CAR T therapy. Patient had critically high BG of 605 mg/dl this morning. 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 Yael Merlos NP contacted his PCP who will prescribe 20 units of 70/30 Insulin BID while on steroids. Patient says he occasionally checks his blood glucose at home, but hasn't been taking any DM medications. Patient reports oral cavity mass is not impacting his ability to eat or swallow. Patient reports he eats well and has a good appetite. He has 3 meals/day. Breakfast is usually cereal with milk and banana plus a couple pieces of toast or a bagel. Lunch varies and dinner typically includes meat, starch and vegetable. He drinks water and 1 diet soda daily. He says he has been trying to curb his carbohydrate intake some lately. He likes to ride his stationary bike at home after breakfast. Wt Readings from Last 10 Encounters: 09/26/23 86.9 kg (191 lb 9.6 oz) 09/21/23 92.1 kg (203 lb 0.7 oz) 09/19/23 92.3 kg (203 lb 6.4 oz) 09/12/23 92.1 kg (203 lb) 08/22/23 93 kg (205 lb 0.4 oz) 06/13/23 92.1 kg (203 lb) 03/14/23 93 kg (205 lb) 01/31/23 91.6 kg (202 lb) 01/10/23 91.2 kg (201 lb) 12/20/22 91.4 kg (201 lb 6.4 oz) BMI 30.03 Weight noted to be down 11# in past 5 days 09/20-09/25 (6.0% body weight) - significant - accurate? Weight stable 203-205# for past 6 months 03/14-09/20 Recommendations: Reviewed DM diet guidelines. Recommend filling half of plate with non-starchy vegetables, 1/4 platewith starch (limit to 1 cup cooked rice or pasta), and 1/4 plate protein. Limit starchy vegetables to 1 cup cooked, limit fruit to 2 servings/day and 2 servings milk or yogurt daily. Recommend limiting added sugars, sweets and desserts as well. Continue with water intake and ok to have 1 diet soda daily. Provided related handout. Will f/u as needed. Patient had BMT pre-transplant nutrition teaching with Elva Sutherland RD yesterday. documented in this encounter Plan of Treatment Upcoming Encounters Date Type Department Care Team (Late st Contact Info) Description 10/03/2023 10:00 AM EDT Office Visit Hematology/Oncology at [address] [phone] Adrianne Ramon MD [facility] HEMATOLOGY [place] [address] Yael Merlos APRN [facility] HEMATOLOGY [place] [address] 10/03/2023 10:30 AM EDT Infusion Hematology Oncology at [address] [address] 10/10/2023 2:45 PM EDT Appointment XRay at [address] [place] [address] Micha Givens Jr., MD [facility] DR HEMATOLOGY [place] [address] 10/10/2023 3:00 PM EDT Appointment Non-[place] [address] 10/10/2023 3:30 PM EDT Appointment [place] [address] 10/11/2023 8:30 AM EDT Infusion Hematology Oncology at [address] [phone] documented as of this encounter Visit Diagnoses Diagnosis Diffuse large B-cell lymphoma of lymph nodes of multiple regions documented in this encounter Care Teams Ap Operator Relationship Specialty Start Date End Date Frederick Meade MD [address] [facility] [address] [place] [address] PCP - General Family Medicine 11/29/17 documented as of this encounter
--- OUTSIDE RECORDS SUMMARY | 2023-10-03 03:12 | XMS_ITS | Encounter Summary ---
Author Organization [facility] Address [facility] [place] [address] Care Team Providers Care Charter Bus Driver Name Role Phone Frederick Meade MD Primary Care Provider [phone] [phone] Reason for Visit * Reason Comments Chemotherapy * Treatment/Therapy Plan Authorization (Routine) - Authorized Specialty Diagnoses / Procedures Referred By Contac t Referred To Contact Hematology and Oncology Diagnoses Diffuse large B-cell lymphoma of lymph nodes of multiple regions Adrianne Ramon MD [facility] [place] [address] St[address] Hem Onc Infusion [address] [place] [phone] Referral ID Status Reason Start Date Expiration Date V isits Requested Visits Authorized [id number] Authorized 09/12/2023 09/11/2024 99 99 Encounter Details Date Type Department Care Team (Late st Contact Info) Description 09/26/2023 8:30 AM EDT Infusion Hematology Oncology at [address] [phone] Diffuse large B-cell lymphoma of [...] Sign Reading Time Taken Comments Blood Pressure 130/63 09/26/2023 8:25 AM EDT Pulse 63 09/26/2023 8:25 AM EDT Temperature 35.2 ??C (95.3 ??F) 09/26/2023 8:25 AM ED T Respiratory Rate 18 09/26/2023 8:25 AM EDT Oxygen Saturation 99% 09/26/2023 8:25 AM EDT Inhaled Oxygen Concentration - - Weight 86.9 kg (191 lb 9.6 oz) 09/26/2023 8:25 A M EDT Height 170.1 cm (5' 6.97) 09/26/2023 8:25 AM ED T Body Mass Index 30.04 09/26/2023 8:25 AM EDT documented in this encounter Progress Notes * Elva Gordon, CHAY - 09/26/2023 8:30 AM EDT * Joaquina Haque, RN - 09/26/2023 8:30 AM EDT INFUSION THERAPY ADMINISTRATION NOTES DIAGNOSIS: DLBCL CYCLE #: C1D8 REASON FOR VISIT: Rituxan SUBJECTIVE Cheo offers no complaints. OBJECTIVE LAB DATA: completed today at [facility] BGL 605 alerted [employer] who contacted patients PCP and plan has been placed Pre administration: Chemotherapy orders independently verified for drug name, route, and dosage per patient's height, weight and BSA by JOAQUINA HAQUE, OSCAR and pharmacist onsite. REACTIONS (DESCRIPTION, TIME, INTERVENTION AND EFFECTIVENESS) none ASSESSMENT Rituxan administered at rapid rate per MD note Cheo was awake, alert and he tolerated treatment well. PLAN Return to clinic per routine. documented in this encounter Plan of Treatment Upcoming Encounters Date Type Department Care Team (Late st Contact Info) Description 10/03/2023 10:00 AM EDT Office Visit Hematology/Oncology at [address] [phone] Adrianne Ramon MD [facility] HEMATOLOGY [place] [address] Yael Merlos APRN [facility] HEMATOLOGY [place] [address] 10/03/2023 10:30 AM EDT Infusion Hematology Oncology at [address] [phone] 10/10/2023 2:45 PM EDT Appointment XRay at [address] [place] [address] Micha Givens Jr., MD [facility] HEMATOLOGY [place] [address] 10/10/2023 3:00 PM EDT Appointment Non-Invasive [place] [address] 10/10/2023 3:30 PM EDT Appointment [place] [phone] 10/11/2023 8:30 AM EDT Infusion Hematology Oncology at [address] [phone] documented as of this encounter Visit Diagnoses Diagnosis Diffuse large B-cell lymphoma of lymph nodes of multiple regions documented in this encounter Administered Medications Inactive Administered Medications - up to 3 most recent administrations Medication Order MAR Action Action Date Dose Rate Site acetaminophen (Tylenol) tablet 650 mg 650 mg, Oral, ONCE, 1 dose, On Sun09/26/23 at 1015, Administer prior to riTUXimab., Routine Given 09/26/2023 10:08 AM EDT 650 mg diphenhydrAMINE (Benadryl) capsule 50 mg 50 mg, Oral, ONCE, 1 dose, On Sun09/26/23 at 1015, Administer prior to riTUXimab, Routine Given 09/26/2023 10:08 AM EDT 50 mg riTUXimab-pvvr (Ruxience) 800 mg in sodium chloride 0.9% 400 mL infusion 800 mg (rounded from 780 mg = 375 mg/m2/dose ? 2.08 m2 Treatment Plan BSA from Recorded weight), Intravenous, ONCE, 1 dose, On Sun09/26/23 at 1115, Administer Per Protocol, Is this product being used for treatment of malignant indication? Yes, Patient is a candidate for rapid infusion riTUXimab? No New Bag 09/26/2023 11:17 AM EDT 800 mg sodium chloride 0.9% infusion 150 mL/hr, Intravenous, CONTINUOUS, Starting on Sun09/26/23 at 1015, Until Sun09/26/23 at 1628 New Bag 09/26/2023 10:09 AM EDT 150 mL/hr 150 mL/hr documented in this encounter Care Teams Charter Bus Driver Relationship Specialty Start Date End Date Frederick Meade MD [address] [place] [address] [address] [place] [address] PCP - General Family Medicine 11/29/17 documented as of this encounter
--- OUTSIDE RECORDS SUMMARY | 2023-10-03 03:12 | XMS_ITS | Encounter Summary ---
Author Organization [facility] Address [facility] [place] [address] Care Team Providers Care Drop Board Man Name Role Phone Frederick Meade MD Primary Care Provider [phone] [phone] Reason for Visit * Reason Onset Date Comments Other 09/19/2023 Prednisone taper Encounter Details Date Type Department Care Team (Late st Contact Info) Description 09/19/2023 Telephone Hematology/Oncology at [address] [phone] Polly Orellana RN Other (Prednisone [...] 10:00 AM EDT Office Visit Hematology/Oncology at [address] [phone] Adrianne Ramon MD [facility] DR [place] [address] Yael Merlos, KARLA [facility] [place] [address] 10/03/2023 10:30 AM EDT Infusion Hematology Oncology at [address] [phone] 10/10/2023 2:45 PM EDT Appointment XRay at [address] [place] [address] Micha Givens Jr., MD [facility] [place] [address] 10/10/2023 3:00 PM EDT Appointment Non-[place] [phone] 10/10/2023 3:30 PM EDT Appointment [place] [phone] 10/11/2023 8:30 AM EDT Infusion Hematology Oncology at [address] [phone] documented as of this encounter Visit Diagnoses Not on filedocumented in this encounter Care Teams Drop Board Man Relationship Specialty Start Date End Date Frederick Meade MD [address] [place] [address] PCP - General Family Medicine 11/29/17 documented as of this encounter
--- OUTSIDE RECORDS SUMMARY | 2023-10-03 03:12 | XMS_ITS | Encounter Summary ---
Author Organization Formerly [facility] [place] [address] Care Team Providers Care Petroleum [employer] District Supervisor Name Role Phone Frederick Meade MD Primary Care Provider [phone] Reason for Visit * Reason Comments Advice Only * Consultation (Routine) - Closed Specialty Diagnoses / Procedures Referred By Contac t Referred To Contact Hematology and Oncology Diagnoses Diffuse large B-cell lymphoma of lymph nodes of multiple regions Adrianne Ramon MD [facility] DR HEMATOLOGY [place] [address] [facility] Onc [address] [place] [address] Referral ID Status Reason Start Date Expiration Date V isits Requested Visits Authorized [id number] Closed Specialty Service Requested 09/12/2023 09/11/2024 1 1 Encounter Details Date Type Department Care Team (Late st Contact Info) Description 09/21/2023 9:30 AM EDT Office Visit Hematology [place] [address] Micha Givens Jr., MD [facility] DR HEMATOLOGY [place] [address] Diffuse large B-cell lymphoma of lymph nodes [...] 9:11 AM EDT documented in this encounter Progress Notes * Micha Givens Jr., MD - 09/21/2023 9:30 AM EDT Transplant and Cellular Therapy Consultation Note ID: Cheo is a 73-year-old gentleman with relapsed Diffuse Large B-cell Lymph[facility] for Chimeric Antigen Receptor (CAR) T-cell Therapy consideration. The patient comes to clinic with his , Claritza, and daughter, Sarath. HISTORY OF PRESENT ILLNESS: Th patient is a 73 year old male initially referred to Hematology in Sep 2022 by [facility] after presentation with a 4 week h/o of sinus swelling and then cervical adenopathy, such that he could not breathe normally. He was treated for presumed infection (presumed acute retropharyngeal abscess), [facility], with 2 biopsies done, one of the tonsil, and 1 needle biopsy of a right post cervical lymph node, and prednisone started, with noted response. Pathology from [facility] was c/w Large B-cell lymphoma (Double expresser). Also found to be iron deficient per PCP - unclear cause. Prior colo had been in 2011. He was treated with R-CHOP x6C (completed in Jan 2023), with CR per f/u PET/CT. Seen 3 months later and doing well, then referred urgently to Dr. Ramon by PCP in Aug 2023, withconcern for recurrence, based on the dev't of new prominent soft tissue lesion on his left arm. PETscan done with significant diffuse FDG avidity, and biopsy confirmed relapsed diffuse large B-cell lymphoma, nongerminal center subtype. Since then, he has seen Dr. Ramon again, and the lesions are worsening, prompting the expedited start of Rituxan and impending add'n of Lenalidomide (R2). ONCOLOGY HISTORY: (per Dr. 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 6 mos of adjuvant Lupron. Total dose 79.2 Gy completed 01/26/15 09/29/22 Large B Cell lymphoma - biopsy of tongue and needle of cervical LN. FISH from [place] No MYCrearrangement and no fusion of MYC [...] 11/29/22 C#3 R-CHOP same dosing as above. 12/20/22C#4 R-CHOP same dosing as above 01/05/23 PET-4 with near CR - some residuum in oropharynx - Deauville 4 01/10/23 C#5 R-CHOP with aurelio and cytoxan at 80% and vinca at 1mg. JanECHO stable 50-55% 01/31/23C#6 R-CHOP will increase Aurelio and CTX dose to 100% 03/06/23 PET negative. 09/06/23 PET positive and biopsy + for DLBCL ABC subtype. Plans for R2 then CAR-T cell therapy PAST MEDICAL HISTORY: Diffuse large B-cell lymphoma of lymph nodes of multiple regions Cardiomyopathy (HFrEF) Anemia, iron deficiency Gout Prostate CA (2014) - s/p lupron and XRT Pre- DM type II ~ 15 years - not requiring medications Hypertension Diverticulosis without diverticulitis Cataract PAST SURGICAL HISTORY: Appendectomy as a child Tonsillectomy as a child 2013 bilateral ing surgery INTERVAL HISTORY: Since his most recent visit with Dr. Ramon on 09/12/23, Cheo reports no significant clinical status change. He continues to manifest overt skin lesions primarily on his upper (> lower) extremities, and these have not changed much following his initial cycle, per his report today. He has received his first of four wkly Rituximab infusions, and he is due to start Lenalidomide next week (09/23), consistent with the R2 regimen. Cheo specifically denies any fevers or infectious symptoms, stridor or airway issues, and his retropharyngeal disease appears to have remained largely stable on steroids. No chest pain, hoarseness, cough or resting dyspnea. His energy level remains mildly low, buthis ADLs have continued to be intact and he has maintained his commitment to walking regularly. Otherwise, the complete review of systems (ROS) is negative. MEDICATIONS: Current Outpatient Medications Medication Instructions allopurinoL (ZYLOPRIM) [...] Powder Oral, 2 TIMES DAILY PRN ALLERGIES: Allergies No Known Allergies FAMILY HISTORY: Non-contributory SOCIAL HISTORY: (per Dr. 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 Not a . ETOH: Occasional (few beers per week) Smoking: Quit 1985. Approximately [id number] history HIPPA Contact Permission: Claritza and Cheo. Also OK to talk to Delia adult children. OK to leave message with medical information on home or cell phone: home phone PHYSICAL EXAM: Wt: 92.1 kg Ht: 170.1 cm BSA: 2.09 m2 Vitals - T 36.7 BP 115/90 HR 69 RR 18 Sa02=97% (RA) GEN: Well-appearing elderly man, conversant and in NAD. HEENT: Sclerae anicteric; oropharynx clear. Slight asymmetric smile and tongue deviates slightly toleft [unchanged] and R tonsilar mass new from last exam NECK: Supple without palpable masses appreciated on exam LYMPH: 2-[address]; bilateral epitrochlear masses each about 2-1/2 cm, right slightly larger than left CARDIAC: NL rate and regular rhythm without S3,S4 or murmurs. LUNGS: Clear to auscultation bilaterally ABDOMEN: Benign without palpable hepatosplenomegaly. EXTREMITIES: Violaceous nodule in the left medial arm above the antecubital. Nontender, mobile, notwarm. Also palpable lateral subcutaneous lesion palpable approx 2cm. SKIN: See above; otherwise, no jaundice, rash, ecchymoses or petechiae. NEUROLOGIC: Grossly intact. LABORATORY STUDIES: Latest Reference Range & Units 09/21/23 11:14 White Blood Cell 4.0 - 9.5 x10(3)/mcL 7.3 Red Blood Cell 4.58 - 5.54 x10(6)/mcL 4.20 (L) Hemoglobin 13.7 - 16.5 g/dL 12.3 (L) Hematocrit 40.5 - 48.5 % 38.4 (L) Mean Cell Volume 82.9 - 93.1 fL 91.4 Mean Cell Hemoglobin 27.5 - 32.1 pg 29.3 Mean Cell Hemoglobin Concentration 32.0 - 35.7 g/dL 32.0 RDW Standard Deviation 36.0 - 45.0 fL 48.4 (H) RDW coefficient of variation 11.4 - 13.8 % 14.5 (H) Platelet 145 - 357 x10(3)/mcL 152 Mean Platelet Volume 7.6 - 12.9 fL 11.5 NRBC% auto % 0.0 NRBC Absolute 0.000 - 0.000 x10(3)/mcL 0.000 ANC 1.70 - 6.10 x10(3)/mcL 6.59 (H) Neutrophil % % 90.8 Immature Gran % % 0.60 Lymph % % 5.1 Monocyte % % 3.0 Eos % % 0.4 Basophil % % 0.1 Immature Gran Absolute 0.00 - 0.04 x10(3)/mcL 0.04 Lymph Absolute 0.9 - 3.2 x10(3)/mcL 0.4 (L) Monocyte Absolute 0.3 - 0.9 x10(3)/mcL 0.2 (L) Eos Absolute 0.0 - 0.4 x10(3)/mcL 0.0 Baso Absolute 0.0 - 0.1 x10(3)/mcL 0.0 HGB S Screen Screen Negative Screen Negative Sodium 135 - 145 mmol/L 138 Potassium 3.5 - 5.0 mmol/L 4.0 Chloride 98 - 107 mmol/L 103 Carbon Dioxide 22 - 31 mmol/L 21 (L) Anion Gap 5 - 15 mmol/L 14 Blood Urea Nitrogen 10 - 20 mg/dL 26 (H) Creatinine 0.80 - 1.50 mg/dL 1.16 Est Glomerular Filtration Rate >=60 mL/min/1.73 m?? 66 Calcium 8.5 - 10.5 mg/dL 9.5 Ionized Calcium 1.15 - 1.33 mmol/L 1.25 Magnesium 0.69 - 1.07 mmol/L 0.80 Phosphorus 2.5 - 4.5 mg/dL 2.9 Uric Acid 3.5 - 8.5 mg/dL 5.1 Glucose 65 - 199 mg/dL 326 (H) Protein, Total 6.1 - 8.0 g/dL 6.3 Albumin 3.2 - 5.2 g/dL 3.9 Bilirubin, Total 0.2 - 1.3 mg/dL 0.4 Alkaline Phosphatase 40 - 130 unit/L 202 (H) Aspartate Aminotransferase 0 - 39 unit/L 54 (H) Alanine Aminotransferase 0 - 55 unit/L 72 (H) Lactate Dehydrogenase 110 - 220 unit/L 426 (H) Prostate Specific Antigen (Ultrasensitive) 0.00 - 4.00 ng/mL 0.03 Iron 45 - 160 mcg/dL 39 (L) TIBC 250 - 450 mcg/dL 255 Iron Saturation 20 - 50 % 15 (L) Ferritin 31 - 409 ng/mL 393 C-Reactive Protein <=4.9 mg/L 52.8 (H) Toxoplasma Antibody IgG Negative Negative Toxoplasma Antibody IgM Negative Negative CMV IgG Negative Negative CMV IgM Negative Negative EBV (VCA) IgG Ab Negative Positive ! EBV (VCA) IgM Ab Negative Negative EBNA Antibodies Negative Positive ! EBV Interpretation Past EBV infection. HSV Type 1 Ab, IgG Negative Negative HSV Type 2 Ab, IgG Negative Negative Varicella Zoster Antibody IgG Positive Positive ABORH Type O NEGATIVE AB Screen Interp Negative Expires at 2359 on: 09/24/2023 Patient BB History Not Found T&S only valid at [facility] Hosp ABORH Recheck Order Order Placed ABORH Type Recheck not performed WILLIAN Negative (L): Data is abnormally low (H): Data is abnormally high !: Data is abnormal PATHOLOGY: 09/06/23 DIAGNOSIS A - Left antecubital mass, biopsy Diagnosis : Atypical lymphoid proliferation c/w Diffuse large B-cell lymphoma- NOS. B - Left axillary lymph node, biopsy Diagnosis : D iffuse large B-cell lymphoma- NOS. Positive for CD20, BCl2(>50%), cMYC(>40%), MUm1, Bcl6 and negative for the rest of the markers they were tested for Ki67 is at 80%. ABC subtype. CD10 neg Flow Cytometry Diagnosis: CD19 and CD20 positive, CD5+ B-cell population exhibiting lambda immunoglobulin light chain restriction. See comment. Electronically signed by: Dana OCASIO, [facility] Verified: 09/10/2023 15:05 Hematopathologist Performed at: -[facility] Dept. of Pathology, [place] [address] Predatory Hunter: Katherine Lopez MD, FCAP, CLIA Certificate: [id number] DISCUSSION The T-lymphocytes , B- lymphocytes and CD56+ NK cells comprise 22%, 77%, 0% of the gated population, respectively. The CD19+/CD20+ B-lymphocytes are positive for CD5, Cd23( minor) and negative for CD10, They show lambda Ig light chain restriction. By SS the lymphocytes appear large Tongue base, left: -Large B-cell lymphoma, incompletely classified. See comment. Diagnosis Comment The findings are those of a large B-cell lymphoma that exhibits a non-germinal center immunophenotype and expresses Myc and BCL-2 protein (Double Expressor.) Flow cytometry ([id number]) supports this interpretation. FISH from [place] No MYC rearrangement and no fusion of MYC and IGH was observed, CD3 (SP7, [employer]) Background T-cells CD20 (L26, [place]) diffusely positive in Neoplastic B-cells PAX-5 (1EW, Leica) diffusely positive in Neoplastic B-cells CD10 (SP67, [place]) Negative BCL-6 (G/191E/A8, [place]) Positive MUM-1 (MUM1p, Dako) Positive Myc (Y69, [employer]) Positive BCL-2 Oncoprotein (124, [place]) Positive Ki67 (MIB-1) (K2, Leica) Greater than 95% of cells in cycle Cyclin D1(SP4-R, [place]) Negative SAPPHIRE JOSE ([id number], Leica) Negative. DIAGNOSTICS: 01/25/23 ECHO after C#5 [...] study is available. RADIOLOGY STUDIES REVIEWED: 09/06/23 PET/CT Scan at recurrence SUV MEASUREMENTS: * Left antecubital fossa 3.4 cm lymph node: Image 184, SUV max 16 * Right axillary lymph nodes: Image 112, SUV max 10 * Pharyngeal wall lesion: Image 74, SUV max 27 IMPRESSION Recurrent active lymphoma in sarahi regions of the neck, chest, abdomen, pelvis,pharynx, spleen, andsoft tissues of the upper and lower extremities (Deauville 5). ASSESSMENT: 73-year-old gentleman with h/o Diffuse Large B-cell Lymphoma (dx'd Sep 2022) s/p CR with 6C R-CHOP, then early relapse at <12 months with progressive, aggressive diffuse cutaneous and lymphatic disease (non-germinal center type), now s/p partial stabilization with steroids and beginning Rituxan/Lenalidomide (R2) regimen in hopes of optimizing cytoreduction to permit utilization of Chimeric Antigen Receptor (CAR) T-cell Therapy for extended disease-free survival. He is overall clinically stable, and based on the above is a reasonable candidate to consider for this therapy. Should a complete remission be attained, autologous stem cell transplant could also be considered, thoughhis age and history of cardiomyopathy (requiring Cardiology clearance) could preclude him from thatmodality. I outlined the CAR T process in detail, then discussed the rationale, potential side effects and overall risk/benefit tradeoff of this modality with Cheo, Claritza and Sarath, including but not limited to potentially life-threatening cytokine release syndrome (CRS), neurotoxicity (ICANS) and organ-specific toxicities, along with hypogammaglobulinemia and the potential for infection. I do have some reservations regarding Cheo' history of cardiomyopathy, given the potential for cardio-vascular complications with this therapy. This will be an issue for further discussion, with updated TTE and the need for formal Cardiology clearance, as we proceed with Cheo' pre-CAR T work-up. In addition, we will need to confirm a negative GI assessment (EGD, colo +/- SBCS), given Cheo' history of iron deficiency within the past several months, of uncertain basis, to ensure no occult lesions prior to CAR T-cell Therapy, along with clear confirmation of ongoing prostate cancer remission. Cheo' relatively advanced age, while an issue of note in terms of accumulated comorbidities, is by no means an absolute barrier to the CAR T modality, with active patients in their 70s and 80s now regularly tolerating this treatment quite well. All questions were answered to Cheo' and his family's stated satisfaction, and we will proceed with methodical pre-CAR T testing as he receives cytoreductive NHL therapy. RECOMMENDATIONS/PLAN: 1. Confirmation of CD19+ status -> via d/w HemePath (appears CD19+ in one of two Path reports). 2. Cont R2 regimen (2C planned, per Dr. Ramon) with restaging PET/CT and BMBx to follow. 3. Updated TTE after restaging and formal Cardiology clearance needed. 4. Confirmation of negative GI work-up and ongoing prostate cancer remission needed. 5. Follow up after restaging for further discussion and reassessment of status. TRAVIS Givens MD TCT Staff documented in this encounter Plan of Treatment Upcoming Encounters Date Type Department Care Team (Late st Contact Info) Description 10/03/2023 10:00 AM EDT Office Visit Hematology/Oncology at [address] [phone] Adrianne Ramon MD [facility] DR HEMATOLOGY [place] [address] Yael Merlos, SECURITY SERGEANT [facility] HEMATOLOGY [place] [address] 10/03/2023 10:30 AM EDT Infusion Hematology Oncology at [address] [phone] 10/10/2023 2:45 PM EDT Appointment XRay at [address] [place] [address] Micha Givens Jr., MD [facility] HEMATOLOGY [place] [address] 10/10/2023 3:00 PM EDT Appointment Non-[place] [address] 10/10/2023 3:30 PM EDT Appointment [place] [address] 10/11/2023 8:30 AM EDT Infusion Hematology Oncology at [address] [phone] Scheduled Referrals Name Type Priority Associated Diagnoses [...] type documented in this encounter Care Teams Pet[employer] District Supervisor Relationship Specialty Start Date End Date Frederick Meade MD [address] [place] [address] [address] PCP - General Family Medicine 11/29/17 documented as of this encounter
--- OUTSIDE RECORDS SUMMARY | 2023-10-03 03:12 | XMS_ITS | Encounter Summary ---
Author Organization [facility] Address [facility] [address] Care Team Providers Care Gift Officer Name Role Phone Frederick Meade MD Primary Care Provider [phone] Reason for Visit * Reason Onset Date Comments Other 09/13/2023 Financial paperw ork Encounter Details Date Type Department Care Team (Late st Contact Info) Description 09/13/2023 Telephone Hematology/Oncology at [address] [phone] Colt Ardon, RN Other (Financial [...] Completed BMS Access Support forms faxed to [phone], fax confirmed. Copy of application and supporting financial docs scanned into media for reference. documented in this encounter Plan of Treatment Upcoming Encounters Date Type Department Care Team (Late st Contact Info) Description 10/03/2023 10:00 AM EDT Office Visit Hematology/Oncology at [address] [phone] Adrianne Ramon MD [facility] HEMATOLOGY [place] [address] Yael Merlos APRN [facility] [place] [address] 10/03/2023 10:30 AM EDT Infusion Hematology Oncology at [address] [address] 10/10/2023 2:45 PM EDT Appointment XRay at [address] [place] [address] Micha Givens Jr., MD [facility] HEMATOLOGY [place] [address] 10/10/2023 3:00 PM EDT Appointment Non[place] [address] 10/10/2023 3:30 PM EDT [place] [address] 10/11/2023 8:30 AM EDT Infusion Hematology Oncology at [address] [phone] documented as of this encounter Visit Diagnoses Not on filedocumented in this encounter Care Teams Gift Officer Relationship Specialty Start Date End Date Frederick Meade MD [address] [place] [address] [address] [place] [address] PCP - General Family Medicine 11/29/17 documented as of this encounter
--- OUTSIDE RECORDS SUMMARY | 2023-10-03 03:12 | XMS_ITS | Encounter Summary ---
Author Organization [facility] [place] [address] Care Team Providers Care Cnc Manager Name Role Phone Frederick Meade MD Primary Care Provider [phone] Reason for Visit * Treatment/Therapy Plan Authorization (Routine) - Authorized Specialty Diagnoses / Procedures Referred By Contac t Referred To Contact Hematology and Oncology Diagnoses Diffuse large B-cell lymphoma of lymph nodes of multiple regions Adrianne Ramon MD [facility] [place] [address] Stj Hem Onc Infusion [address] [place] [phone] Referral ID Status Reason Start Date Expiration Date V isits Requested Visits Authorized [id number] Authorized 09/12/2023 09/11/2024 99 99 Encounter Details Date Type Department Care Team (Late st Contact Info) Description 10/03/2023 10:30 AM EDT Infusion Hematology Oncology at [address] [phone] Social History Tobacco Use Types [...] 10:00 AM EDT Office Visit Hematology/Oncology at [address] [phone] Adrianne Ramon MD [facility] HEMATOLOGY [place] [address] Yael Merlos APRN [facility] HEMATOLOGY AND ONCOLOGY [place] [address] 10/10/2023 2:45 PM EDT Appointment XRay at [address] [place] [phone] Micha Givens Jr., MD [facility] [place] [address] 10/10/2023 3:00 PM EDT Appointment Non-[place]vasive [place] [phone] 10/10/2023 3:30 PM EDT Appointment [place] [phone] 10/11/2023 8:30 AM EDT Infusion Hematology Oncology at [address] [phone] documented as of this encounter Visit Diagnoses Not on filedocumented in this encounter Care Teams Cnc Manager Relationship Specialty Start Date End Date Frederick Meade MD [address] [place] [address] PCP - General Family Medicine 11/29/17 documented as of this encounter
--- OUTSIDE RECORDS SUMMARY | 2023-10-03 03:12 | XMS_ITS | Encounter Summary ---
Author Organization [facility] [address] Care Team Providers Care Linter Drier Operator Name Role Phone Frederick Meade MD Primary Care Provider [phone] Encounter Details Date Type Department Care Team (Late st Contact Info) Description 09/19/2023 Orders Only Hematology [place] [address] Yael Merlos, HAND BRUSH FILLER [facility] DR [place] [address] Diffuse large B-cell lymphoma of lymph nodes [...] 10:00 AM EDT Office Visit Hematology/Oncology at [address] [phone] Adrianne Ramon MD [facility] [place] [address] Yael Merlos, HAND BRUSH FILLER [facility] HEMATOLOGY [place] [address] 10/03/2023 10:30 AM EDT Infusion Hematology Oncology at [address] [phone] 10/10/2023 2:45 PM EDT Appointment XRay at [address] [place] [phone] Micha Givens Jr., MD [facility] [place]OLOGY [place] [address] 10/10/2023 3:00 PM EDT Appointment Non[place] [phone] 10/10/2023 3:30 PM EDT Appointment [place] [address] 10/11/2023 8:30 AM EDT Infusion Hematology Oncology at [address] [phone] Scheduled Orders Name Type Priority Associated Diagnoses Orde r Schedule Uric acid Lab STAT Diffuse large B-cell lymphoma of lymph nodes of multiple regions As Needed for 12 Occurrences starting 09/19/2023 until 09/18/2024 documented as of this encounter Visit Diagnoses Diagnosis Diffuse large B-cell lymphoma of lymph nodes of multiple regions documented in this encounter Care Teams Linter Drier Operator Relationship Specialty Start Date End Date Frederick Meade MD [address] [place] [address] PCP - General Family Medicine 11/29/17 documented as of this encounter
--- OUTSIDE RECORDS SUMMARY | 2023-10-03 03:12 | XMS_ITS | Encounter Summary ---
Author Organization [facility] [place] [address] Care Team Providers Care Automatic Line Set Up Mechanic Name Role Phone Frederick Meade MD Primary Care Provider [phone] Encounter Details Date Type Department Care Team (Latest Contact Info) Description 09/21/2023 10:51 AM EDT - 09/21/2023 11:59 PM EDT Hospital Encounter Hematology [place] [address] Diffuse large B-cell lymphoma of lymph nodes [...] No 10/11/2022 Housing Stability Vital Sign Answer Clayton e Recorded In the last 12 months, [...] for 3 days. 45 tablet 09/21/2023 10/06/2023 lenalidomide (Revlimid) 20 mg capsuleIndications:pr ogressive diffuse large B-cell lymphoma Take 1 capsule (20 mg) by mouth daily for 21 days. Call clinic before starting medication. Indications: progressive diffuse large B-cell lymphoma 09/12/2023 loratadine (Claritin) 10 mg Tablet Take 10 [...] 05/24/2016 aspirin 81 mg Tablet, Chewable Take 325 mg by mouth daily. documented as of this encounter Plan of Treatment Upcoming Encounters Date Type Department Care Team (Late st Contact Info) Description 10/03/2023 10:00 AM EDT Office Visit Hematology/Oncology at [address] [phone] Adrianne Ramon MD [facility] [address] [place] [address] Yael Merlos APRN [facility] [address] [place] [address] 10/03/2023 10:30 AM EDT Infusion Hematology Oncology at [address] [phone] 10/10/2023 2:45 PM EDT Appointment XRay at [address] [place] [address] Micha Givens Jr., MD [facility] [address] [place] [address] 10/10/2023 3:00 PM EDT Appointment Non-[place]vasive [place] [address] 10/10/2023 3:30 PM EDT Appointment [place] [address] 10/11/2023 8:30 AM EDT Infusion Hematology Oncology at [address] [phone] Pending Results Name Type Priority Associated Diagnoses [...] regions Stem cell transplant candidate Pre-op testing ANIYAH-DOMINGUEZ VIRUS ANTIBODIES Routine 09/21/2023 11:14 AM EDT [...] nodes of multiple regions TYPE AND SCREEN ([facility]CGP/MARCELINA) Routine 09/21/2023 11:14 AM EDT Diffuse large [...] BANK LAB ORDER DUONG Performing Organization Address City/[facility]/ZIP Co de Phone Number [facility] [place] [address] * Direct antiglobulin test (09/21/2023 11:14 AM EDT) CLAYTON Negative [facility] 09/21/2023 11:1 4 AM EDT 09/21/2023 11:14 AM EDT Micha Givens Jr., MD BLOOD BANK LAB ORDER DUONG Performing Organization Address [facility] Co de Phone Number [facility] [place] [address] * Type and Screen Validity (09/21/2023 11:14 AM EDT) T&S only valid at [facility] LABORATORY Comment:This Type and Screen result is only valid at the [facility] Blood 09/21/2023 11:1 4 AM EDT 09/21/2023 11:31 AM EDT Narrative Resulting Agency Comment Spec In Lab Micha Givens Jr., MD BLOOD BANK LAB ORDER DUONG Performing Organization Address City/[facility] Co de Phone Number [facility] [place] [address] * ABORH Recheck Status (09/21/2023 11:14 AM EDT) ABORH Recheck Order Order Placed [facility] ABORH Type Recheck not performed [facility] Blood 09/21/2023 11:1 4 AM EDT 09/21/2023 11:31 AM EDT Narrative Resulting Agency Comment Spec In Lab Micha Givens Jr., MD BLOOD BANK LAB ORDER DUONG [facility] [place] [place] [address] * (ABNORMAL) Differential, Automated (09/21/2023 11:14 AM EDT) Neutrophil % 90.8 % [facility] Neutrophil Absolute 6.59(H) 1.70 - 6.10 x10(3)/mc L [facility] Lymph % 5.1 % [facility] Lymphocytes Abs 0.4(L) 0.9 - 3.2 x10(3)/mc L [facility] Monocyte % 3.0 % [facility] Monocyte Abs 0.2(L) 0.3 - 0.9 x10(3)/ L [facility] Eos % 0.4 % [facility] Eosinophils Abs 0.0 0.0 - 0.4 x10(3)/[facility] LABORATORY Basophil % 0.1 % [facility] Baso Absolute 0.0 0.0 - 0.1 x10(3)/mc L [facility] Immature Gran % 0.60 % [facility] Comment: Immature granulocytes(IG's)percentage and absolute count will include metamyelocytes, myelocytes, and promyelocytes. Blood smears from CBCs yielding IG's will be scanned manually for concordance. If this scan disagrees with the automated IG or if promyelocytes are noted, a manual differential will be performed. Immature Gran Absolute 0.04 0.00 - 0.04 x10(3)/mc L [facility] Blood 09/21/2023 11:1 4 AM EDT 09/21/2023 11:30 AM EDT Narrative Resulting Agency Comment Spec In Lab Micha Givens Jr., MD HEMATOLOGY ORDERABLE S Performing Organization Address City/[facility]/ZIP Co de Phone Number [facility] [place] [address] * (ABNORMAL) Hemogram (09/21/2023 11:14 AM EDT) White Blood Cell 7.3 4.0 - 9.5 x10(3)/mc L [facility] Red Blood Cell 4.20(L) 4.58 - 5.54 x10(6)/mc L [facility] Hemoglobin 12.3(L) 13.7 - 16.5 g/dL [facility] Hematocrit 38.4(L) 40.5 - 48.5 % [facility] Mean Cell Volume 91.4 82.9 - 93.1 fL [facility] Mean Cell Hemoglobin 29.3 27.5 - 32.1 pg [facility] Mean Cell Hemoglobin Concentration 32.0 32.0 - 35.7 g/dL [facility] Platelet 152 145 - 357 x10(3)/[facility] LABORATORY RDW Standard Deviation 48.4(H) 36.0 - 45.0 [facility] LABORATORY RDW coefficient of variation 14.5(H) 11.4 - 13.8 % [facility] Mean Platelet Volume 11.5 7.6 - 12.9 fL [facility] NRBC% auto 0.0 % [facility] NRBC Absolute 0.000 0.000 - 0.000 x10(3)/[facility] LABORATORY Blood 09/21/2023 11:1 4 AM EDT 09/21/2023 11:30 AM EDT Narrative Resulting Agency Comment Spec In Lab Micha Givens Jr., MD HEMATOLOGY ORDERABLE S [facility] [place] [address] * Hemoglobin S Screen (09/21/2023 11:14 AM EDT) HGB S Screen Screen Negative Screen Negative [facility] Blood 09/21/2023 11:1 4 AM EDT 09/21/2023 11:30 AM EDT Narrative Resulting Agency Comment Spec In Lab Micha Givens Jr., MD HEMATOLOGY ORDERABLE S Performing Organization Address City/[facility]/ZIP Co de Phone Number [facility] [place] [address] * Type and screen ([facility]/CGP/MARCELINA) (09/21/2023 11:14 AM EDT) ABORH Type O NEGATIVE [facility] Patient BB History Not Found [facility] Expires at [id number] on: 09/24/2023 [facility] Ab Screen Interp Negative [facility] Blood 09/21/2023 11:1 4 AM EDT 09/21/2023 11:14 AM EDT Narrative [facility] - 09/21/2023 11:14 AM EDT This Type and Screen result is only valid at the [facility] Resulting Agency Comment Spec In Lab Micha Givens Jr., MD BLOOD BANK LAB ORDER DUONG Performing Organization Address [facility]/ZIP Co de Phone Number [facility] [place] [address] * (ABNORMAL) Iron and TIBC (09/21/2023 11:14 AM EDT) [facility] Iron 39(L) 45 - 160 mcg/dL [facility] TIBC 255 250 - 450 mcg/dL [facility] Iron Saturation 15(L) 20 - 50 % [facility] Blood 09/21/2023 11:1 4 AM EDT 09/21/2023 11:30 AM EDT Narrative Resulting Agency Comment Spec In Lab Micha Givens Jr., MD CHEMISTRY ORDERABLES Performing Organization Address City/[facility]/ZIP Co de Phone Number [facility] [place] [address] * (ABNORMAL) CRP, acute inflammation (09/21/2023 11:14 AM EDT) C-Reactive Protein 52.8(H) <=4.9 mg/L [facility] Blood 09/21/2023 11:1 4 AM EDT 09/21/2023 11:30 AM EDT Narrative Resulting Agency Comment Spec In Lab Micha Givens Jr., MD CHEMISTRY ORDERABLES Performing Organization Address City/[facility]/ZIP Co de Phone Number [facility] [place] [address] * Ferritin (09/21/2023 11:14 AM EDT) Pathologist [facility] Ferritin 393 31 - 409 ng/mL [facility] Comment: Please note that as of 01/24/2023, the reference intervals for Ferritin have been updated. Blood 09/21/2023 11:1 4 AM EDT 09/21/2023 11:30 AM EDT Narrative Resulting Agency Comment Spec In Lab Micha Givens Jr., MD CHEMISTRY ORDERABLES Performing Organization Address City/[facility] Co de Phone Number [facility] [place] [address] * Uric acid (09/21/2023 11:14 AM EDT) Uric Acid 5.1 3.5 - 8.5 mg/dL [facility] Blood 09/21/2023 11:1 4 AM EDT 09/21/2023 11:30 AM EDT Narrative Resulting Agency Comment Spec In Lab Micha Givens Jr., MD CHEMISTRY ORDERABLES Performing Organization Address City/[facility] Co de Phone Number [facility] [place] [address] * Calcium, Ionized, Serum (09/21/2023 11:14 AM EDT) Ionized Calcium 1.25 1.15 - 1.33 mmol/L [facility] Comment: Note: Total bilirubin higher than 20 mg/dL may lead to falsely low ionized calcium. This test has not been cleared by the [place] FDA. Performance characteristics of this test were determined by [facility] in accordance with CLIA requirements. This laboratory is qualified under CLIA to perform high-complexity testing. Blood 09/21/2023 11:1 4 AM EDT 09/21/2023 11:30 AM EDT Narrative Resulting Agency Comment Spec In Lab Micha Givens Jr., MD CHEMISTRY ORDERABLES Performing Organization Address City/[facility]/ZIP Co de Phone Number [facility] [place] [address] * Toxoplasma Antibody, IgM (09/21/2023 11:14 AM EDT) Toxoplasma Antibody IgM Negative Negative [facility] Blood 09/21/2023 11:1 4 AM EDT 09/21/2023 1:04 PM EDT Narrative Resulting Agency Comment Spec In Lab Micha Givens Jr., MD IMMUNOLOGY ORDERABLE S Performing Organization Address [facility] Co de Phone Number [facility] [place] [address] * Toxoplasma Antibody, IgG (09/21/2023 11:14 AM EDT) Toxoplasma Antibody IgG Negative Negative [facility] Blood 09/21/2023 11:1 4 AM EDT 09/21/2023 1:04 PM EDT Narrative Resulting Agency Comment Spec In Lab Micha Givens Jr., MD IMMUNOLOGY ORDERABLE S Performing Organization Address City/[facility]/ZIP Co de Phone Number [facility] [place] [address] * PSA Screen (09/21/2023 11:14 AM EDT) PSA Screen 0.03 0.00 - 4.00 ng/mL [facility] Comment: PLEASE NOTE: The above [...] Jr., MD CHEMISTRY ORDERABLES Performing Organization Address City/[facility] Co de Phone Number [facility] [place] [address] * Phosphorus (09/21/2023 11:14 AM EDT) Phosphorus 2.9 2.5 - 4.5 mg/dL [facility] Blood 09/21/2023 11:1 4 AM EDT 09/21/2023 11:30 AM EDT Narrative Resulting Agency Comment Spec In Lab Micha Givens Jr., MD CHEMISTRY ORDERABLES Performing Organization Address [facility] Co de Phone Number [facility] [place] [address] * Magnesium (09/21/2023 11:14 AM EDT) Magnesium 0.80 0.69 - 1.07 mmol/L [facility] Blood 09/21/2023 11:1 4 AM EDT 09/21/2023 11:30 AM EDT Narrative Resulting Agency Comment Spec In Lab Micha Givens Jr., MD CHEMISTRY ORDERABLES Performing Organization Address [facility] Co de Phone Number [facility] [place] [address] * Varicella zoster Antibody, IgG (09/21/2023 11:14 AM EDT) Varicella Zoster Antibody IgG Positive Positive [facility] Comment: A positive result for this assay is considered to be an indicator of positive immune status. Blood 09/21/2023 11:1 4 AM EDT 09/21/2023 1:04 PM EDT Narrative Resulting Agency Comment Spec In Lab Micha Givens Jr., MD IMMUNOLOGY ORDERABLE S Performing Organization Address [facility] Co de Phone Number [facility] [place] [address] * HSV 1 and 2 IgG Antibodies (09/21/2023 11:14 AM EDT) HSV Type 1 Ab, IgG Negative Negative [facility] HSV Type 2 Ab, IgG Negative Negative [facility] Blood 09/21/2023 11:1 4 AM EDT 09/21/2023 1:04 PM EDT Narrative Resulting Agency Comment Spec In Lab Micha Givens Jr., MD IMMUNOLOGY ORDERABLE S Performing Organization Address [facility] Co de Phone Number [facility] [place] [address] * (ABNORMAL) Aniyah-Dominguez Virus Antibodies (09/21/2023 11:14 AM EDT) EBV (VCA) IgG Ab Positive(A) Negative [facility] EBV (VCA) IgM Ab Negative Negative [facility] EBNA Antibodies Positive(A) Negative [facility] EBV Interpretation Past EBV infection. [facility] Comment: In most populations, at [...] Micha Givens Jr., MD IMMUNOLOGY ORDERABLE S [facility] [place] [address] * CMV Antibody, IgM (09/21/2023 11:14 AM EDT) CMV IgM Negative Negative [facility] Blood 09/21/2023 11:1 4 AM EDT 09/21/2023 1:04 PM EDT Narrative Resulting Agency Comment Spec In Lab Micha Givens Jr., MD IMMUNOLOGY ORDERABLE S Performing Organization Address [facility]/ZIP Co de Phone Number [facility] [place] [address] * CMV Antibody, IgG (09/21/2023 11:14 AM EDT) CMV IgG Negative Negative [facility] Blood 09/21/2023 11:1 4 AM EDT 09/21/2023 1:04 PM EDT Narrative Resulting Agency Comment Spec In Lab Micha Givens Jr., MD IMMUNOLOGY ORDERABLE S Performing Organization Address [facility]/ZIP Co de Phone Number [facility] [place] [address] * (ABNORMAL) Lactate Dehydrogenase (09/21/2023 11:14 AM EDT) Lactate Dehydrogenase 426(H) 110 - 220 unit/L [facility] Blood 09/21/2023 11:1 4 AM EDT 09/21/2023 11:30 AM EDT Narrative Resulting Agency Comment Spec In Lab Micha Givens Jr., MD CHEMISTRY ORDERABLES Performing Organization Address City/[facility]/ZIP Co de Phone Number [facility] [place] [address] * (ABNORMAL) Comprehensive metabolic panel (non-fasting) (09/21/2023 11:14 AM EDT) Glucose 326(H) 65 - 199 mg/dL [facility] Comment:Diabetes: >=200 mg/d L plus symptoms Blood Urea Nitrogen 26(H) 10 - 20 mg/dL [facility] Creatinine 1.16 0.80 - 1.50 mg/dL [facility] Sodium 138 135 - 145 mmol/L [facility] Potassium 4.0 3.5 - 5.0 mmol/L [facility] Comment: Please note: ??Patients with WBC >100,000 may have falsely elevated Potassium levels. ??For accurate Potassium quantification in these patients send serum separator tube (gold top) for subsequent determinations. ??Contact the Clinical Chemistry Laboratory if there are any questions. Chloride 103 98 - 107 mmol/L [facility] Carbon Dioxide 21(L) 22 - 31 mmol/L [facility] Anion Gap 14 5 - 15 mmol/L [facility] Calcium 9.5 8.5 - 10.5 mg/dL [facility] Protein, Total 6.3 6.1 - 8.0 g/dL [facility] Albumin 3.9 3.2 - 5.2 g/dL [facility] Aspartate Aminotransferase 54(H) 0 - 39 unit/L [facility] Alanine Aminotransferase 72(H) 0 - 55 unit/L [facility] Alkaline Phosphatase 202(H) 40 - 130 unit/L [facility] Bilirubin, Total 0.4 0.2 - 1.3 mg/dL [facility] Est Glomerular Filtration Rate 66 >=60 mL/min/1. 73 m?? [facility] Comment: This patient's estimated GFR [...] Lab Micha Givens Jr., MD CHEMISTRY ORDERABLES [facility] [place] [address] * Urinalysis with reflex Culture (09/21/2023 11:11 AM EDT) Glucose, Urine Dipstick Negative Negative mg/dL [facility] Protein, Urine Dipstick Negative Negative mg/dL [facility] Bilirubin, Urine Dipstick Negative Negative mg/dL [facility] Comment: Clinical correlation required for positive Urine Bilirubin results as false positive may occur with some drugs and drug related products. If a false positive is suspected a serum total bilirubin should be considered if clinically indicated. Urobilinogen, Urine Dipstick Normal Normal mg/dL [facility] pH, Urn (dipstick) 6.5 5.0 - 8.0 [facility] Blood, Urine Dipstick Negative Negative mg/dL [facility] Ketone, Urine Dipstick Negative Negative mg/dL [facility] Nitrite, Urine Dipstick Negative Negative [facility] Leukocytes, Urine Dipstick Negative Negative mcL [facility] Appearance, Urine Dipstick Clear Clear [facility] Specific Frontier Urine Automated 1.009 1.005 - 1.030 [facility] Color, Urine Dipstick Yellow Yellow [facility] Reflex to Culture No [facility] Clean Catch Urine 09/21/2023 11:11 AM EDT 09/21/2023 11:33 AM EDT Narrative Resulting Agency Comment Spec In Lab Micha Givens Jr., MD URINE ORDERABLES [facility] [place] [address] documented in this encounter Visit Diagnoses Diagnosis 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 Pre-op testing Preoperative examination, unspecified Prostate cancer screening Special screening for malignant neoplasm of prostate Iron deficiency anemia, unspecified iron deficiency anemia type documented in this encounter Care Teams Automatic Line Set Up Mechanic Relationship Specialty Start Date End Date Frederick Meade MD [address] [place] [address] PCP - General Family Medicine 11/29/17 documented as of this encounter
--- OUTSIDE RECORDS SUMMARY | 2023-10-03 03:12 | XMS_ITS | Encounter Summary ---
Author Organization [facility] [address] Care Team Providers Care Cable Operator Name Role Phone Frederick Meade MD Primary Care Provider [phone] Encounter Details Date Type Department Care Team (Late st Contact Info) Description 09/20/2023 Orders Only Hematology [place] [address] Micha Givens Jr., MD [facility] [address] [place] [address] Diffuse large B-cell lymphoma of lymph nodes [...] 10:00 AM EDT Office Visit Hematology/Oncology at [address] [phone] Adrianne Ramon MD [facility] [place] [address] Yael Merlos, APARTMENT LEASING AGENT [facility] [place] [address] 10/03/2023 10:30 AM EDT Infusion Hematology Oncology at [address] [phone] 10/10/2023 2:45 PM EDT Appointment XRay at [address] [place] [phone] Micha Givens Jr., MD [facility] HEMATOLOGY [place] [address] 10/10/2023 3:00 PM EDT Appointment Non-[place] [phone] 10/10/2023 3:30 PM EDT Appointment [place] [address] 10/11/2023 8:30 AM EDT Infusion Hematology Oncology at [address] [phone] documented as of this encounter Results * (ABNORMAL) Lactate Dehydrogenase (09/21/2023 11:14 AM EDT) Lactate Dehydrogenase 426(H) 110 - 220 unit/L [facility] Blood 09/21/2023 11:1 4 AM EDT 09/21/2023 11:30 AM EDT Narrative Resulting Agency Comment Spec In Lab Micha Givens Jr., MD CHEMISTRY ORDERABLES [facility] [place] [address] * (ABNORMAL) Comprehensive metabolic panel (non-fasting) (09/21/2023 11:14 AM EDT) Glucose 326(H) 65 - 199 mg/dL [facility] Comment:Diabetes: >=200 mg/d L plus symptoms Blood Urea Nitrogen 26(H) 10 - 20 mg/dL [facility] Creatinine 1.16 0.80 - 1.50 mg/dL [facility] Sodium 138 135 - 145 mmol/L [facility] Potassium 4.0 3.5 - 5.0 mmol/L [facility] Comment: Please note: ??Patients with WBC >100,000 may have falsely elevated Potassium levels. ??For accurate Potassium quantification in these patients send serum separator tube (gold top) for subsequent determinations. ??Contact the Clinical Chemistry Laboratory if there are any questions. Chloride 103 98 - 107 mmol/L [facility] Carbon Dioxide 21(L) 22 - 31 mmol/L [facility] Anion Gap 14 5 - 15 mmol/L [facility] Calcium 9.5 8.5 - 10.5 mg/dL [facility] Protein, Total 6.3 6.1 - 8.0 g/dL [facility] Albumin 3.9 3.2 - 5.2 g/dL [facility] Aspartate Aminotransferase 54(H) 0 - 39 unit/L [facility] Alanine Aminotransferase 72(H) 0 - 55 unit/L [facility] Alkaline Phosphatase 202(H) 40 - 130 unit/L [facility] Bilirubin, Total 0.4 0.2 - 1.3 mg/dL [facility] Est Glomerular Filtration Rate 66 >=60 mL/min/1. 73 m?? [facility] [...] Lab Micha Givens Jr., MD CHEMISTRY ORDERABLES [facility] [place] [address] documented in this encounter Visit Diagnoses Diagnosis Diffuse large B-cell lymphoma of lymph nodes of multiple regions documented in this encounter Care Teams Cable Operator Relationship Specialty Start Date End Date Frederick Meade MD [address] [place] [address] PCP - General Family Medicine 11/29/17 documented as of this encounter
--- OUTSIDE RECORDS SUMMARY | 2023-10-03 03:12 | XMS_ITS | Encounter Summary ---
[place] [address] Care Team Providers Care Organization Development Consultant Name Role Phone Frederick Meade MD Primary Care Provider [phone] [phone] Encounter Details Date Type Department Care Team (Latest Contact Info) Description 09/21/2023 10:30 AM EDT Clinical Support [place]emat[place] [phone] Danii Her, RN Diffuse large B-cell lymphoma [...] be ready for shipment. Patient returns to [facility] for 3-5 days of chemotherapy (outpatient). Cell Infusion - admission for a minimum of 7 days (our [facility] standard is 14) for monitoring. 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 Stay within 1 hour [facility] for 4 weeks post infusion. Caregiver required [...] maintenance records: colo - Last completed at [facility] in 2011 Dental: False teeth, all teeth removed years ago. We discussed role of public health social worker for pretransplant assessment and as a resource [...] post CAR T. We will have oncology integrity analyst re-enforce food safety guidelines post CAR T [...] 10:00 AM EDT Office Visit Hematology/Oncology at [address] [phone] Adrianne Ramon MD [facility] HEMATOLOGY [place] [address] Yael Merlos APRN [facility]AT[facility] [place] [address] 10/03/2023 10:30 AM EDT Infusion Hematology Oncology at [address] [phone] 10/10/2023 2:45 PM EDT Appointment XRay at [address] [place] [address] Micha Givens Jr., MD [facility] H[facility]ATOLOG[facility] [place] [address] 10/10/2023 3:00 PM EDT Appointment Non-[place]vasive [place] [address] 10/10/2023 3:30 PM EDT [place]ointment [place] [address] 10/11/2023 8:30 AM EDT Infusion Hematology Oncology at [address] [phone] documented as of this encounter Visit Diagnoses Diagnosis Diffuse large B-cell lymphoma of lymph nodes of multiple regions documented in this encounter Care Teams Organization Development Consultant Relationship Specialty Start Date End Date Frederick Meade MD [address] [place] [address] PCP - General Family Medicine 11/29/17 documented as of this encounter
--- OUTSIDE RECORDS SUMMARY | 2023-10-03 03:12 | XMS_ITS | Encounter Summary ---
Author Organization [facility] [place] [address] Care Team Providers Care Machine Learning Intern Name Role Phone Frederick Meade MD Primary Care Provider [phone] Encounter Details Date Type Department Care Team (Late st Contact Info) Description 09/14/2023 Telephone Hematology/Oncology at [address] [phone] Brenda Priest, RN Social History [...] 09/14/2023 3:11 PM EDT ADD:Sent email to [employer] they will contact [employer] to see what they can get for money for pt. They will update us. Received call from Donita Jimenez At [employer] ([phone]) stating that they received the application for patient financial assistance for Revlimid. States that there is a Revlimid prescription claim in [facility] which is showing that the patient has met his OOP max. She suggests that we call [facility] pharmacy and ask that they reverse the claim because patient hasn't received drug. This willallow them to see what his co-pay will be so that they can determine eligibility for financial assistance and free drug. RN call to [facility] pharmacy spoke with pharmacogeneticist who states that the claim was reversed on their end on 09/11 at 5pm. Suggests that I call his insurance to discuss and ask them to reverse the claim. Call to [employer] ([phone]) spoke with someone who transferred me to [employer].Spoke with Marcos at [employer], pharmacy services for claim reversal. Also states that the claim was reversed by [facility] on 09/11, no claim in process at this time. Call to [employer] Access support, spoke with Donita Jimenez - states that this patient is qualified for a toi.They need to apply for this open toi to try before being able to get free drug. [employer] - [phone] or healthwellfoundation.org - can apply by phone or website. documented in this encounter Plan of Treatment Upcoming Encounters Date Type Department Care Team (Late st Contact Info) Description 10/03/2023 10:00 AM EDT Office Visit Hematology/Oncology at [address] [phone] Adrianne Ramon MD [facility] HEMATOLOGY [place] [address] Yael Merlos APRN [facility] HEMATOLOGY [place] [address] 10/03/2023 10:30 AM EDT Infusion Hematology Oncology at [address] [phone] 10/10/2023 2:45 PM EDT Appointment XRay at [address] [place] [address] Micha Givens Jr., MD [facility] HEMATOLOGY [place] [address] 10/10/2023 3:00 PM EDT Appointment Non-Invasive [place] [phone] 10/10/2023 3:30 PM EDT Appointment [place] [address] 10/11/2023 8:30 AM EDT Infusion Hematology Oncology at [address] [phone] documented as of this encounter Visit Diagnoses Not on filedocumented in this encounter Care Teams Machine Learning Intern Relationship Specialty Start Date End Date Frederick Meade MD [address] [place] [address] [address] PCP - General Family Medicine 11/29/17 documented as of this encounter
--- OUTSIDE RECORDS SUMMARY | 2023-10-03 03:12 | XMS_ITS ---
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 10/10/2022 Anemia, iron deficiency 08/21/2018 Gout 05/31/2017 Malignant neoplasm of prostate 09/01/2014 Current Oncology Plans [facility] HEM LYMPHOMA (HEMATOLOGIC MALIGNANCIES) - riTUXimab (WEEKLY)* Plan Start Date:09/19/2023 Plan Provider:Adrianne Ramon MD Linked Problems 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 Treatment Medications Current Day (Day 1 5, Cycle 1 - Planned for 10/03/2023) Next Day (Day 22, Cycle 1 - Planned for 10/10/2023) riTUXimab-pvvr (Ruxience) (2 mg/mL) in sodium chloride [...] Treatment Medications Discontinue Reason Plan Provider Cycles [facility] HEM LYMPHOMA (NHL) - R-CHOP (21 DAY) 10/19/19 23 06/22/2023 cycloPHOSphamide (Cytoxan) in sodium chloride 0.9% 250 mL infusionDOXOrubicin (Adriamycin)riTUXimab -pvvr (Ruxience) (2 mg/mL) in sodium chloride 0.9% infusionvinCRIStine (Oncovin) in sodium chloride 0.9% 25 mL infusion Therapy Complete Adrianne Ramon MD 6 of 6 cycles started Radiation Treatments * No radiation treatments are documented for this patient in [facility]. Treatments may have been administered in [...] Biopsy 09/01/2014 Volume in cc 15 cc [place] grade/score a+b=c 4+3=7-- intermediate risk prostate cancer [...] Findings and based on age. Nutrition--Follow the [place] Cancer Society Guidelines that include the following: [...] Helpful websites www. cancer. gov National Cancer [place] www.nccn.org National Comprehensive Cancer Network www.canceradvocacy.org National Coalition for Cancer Survivorship www.livestrong.org Livestrong Survivor Care www.acscsn.org Cancer Survivors Network Anna Carr APRN- Radiation Oncology Adapted from [place] Society of Clinical Oncology 2008 Cancer Treatment Plan Summary Survivorship care provider contacts FUNERAL DIRECTOR/EMBALMER: Anna Carr
--- OUTSIDE RECORDS SUMMARY | 2023-10-03 03:12 | XMS_ITS | Encounter Summary ---
Author Organization [place] [address] Care Team Providers Care Director Of Design Name Role Phone Frederick Meade MD Primary Care Provider [phone] Encounter Details Date Type Department Care Team [...] Office Visit Hematology/Oncology at [address] [phone] Adrianne Ramon MD [facility] DR [place] [address] Yael Merlos APRN [facility] DR [place] [address] 10/03/2023 10:30 AM EDT Infusion Hematology Oncology at [address] [phone] 10/10/2023 2:45 PM EDT Appointment XRay at [address] [place] [address] Micha Givens Jr., MD [facility] [place] [address] 10/10/2023 3:00 PM EDT Appointment Non-[place] [phone] 10/10/2023 3:30 PM EDT Appointment [place] [address] 10/11/2023 8:30 AM EDT Infusion Hematology Oncology at [address] [phone] documented as of this encounter Visit Diagnoses Not on filedocumented in this encounter Care Teams Director Of Design Relationship Specialty Start Date End Date Frederick Meade MD [address] [facility] [address] [place] [address] PCP - General Family Medicine 11/29/17 documented as of this encounter
--- OUTSIDE RECORDS SUMMARY | 2023-10-03 03:12 | XMS_ITS | Encounter Summary ---
[place] [address] Care Team Providers Care Truck Body Builder Apprentice Name Role Phone Frederick Meade MD Primary Care Provider [phone] Reason for Referral * Diagnostic Test (Routine) - Authorized Specialty Diagnoses / Procedures Referred By Paul t Referred To Contact Cardiology Diagnoses Diffuse large B-cell lymphoma of lymph nodes of multiple regions High risk medication use Procedures Echocardiogram Transthoracic Adrianne Ramon MD [facility] [address] [place] [address] Referral ID Status Reason Start Date Expiration Date Visits Requested Visits Authorized [id number] Authorized Specialty Service Requested 09/12/2023 03/10/2024 1 1 * Consultation (Routine) - Closed Specialty Diagnoses / Procedures Referred By Contdamir t Referred To Contact Hematology and Oncology Diagnoses Diffuse large B-cell lymphoma of lymph nodes of multiple regions Adrianne Ramon MD [facility] [address] [place] [address] [facility] [address] [place] [address] Referral ID Status Reason Start Date Expiration Date V isits Requested Visits Authorized [id number] Closed Specialty Service Requested 09/12/2023 09/11/2024 1 1 Encounter Details Date Type Department Care Team (Late st Contact Info) Description 09/12/2023 10:15 AM EDT Office Visit Hematology/Oncology at [address] [phone] Adrianne Ramon MD [facility] [place] [address] Yael Merlos, MUSIC SPECIALIST [facility] [place] [address] Diffuse large B-cell lymphoma of lymph nodes [...] original note were not included. Hematology Clinic [facility] [place] [address] HEMATOLOGY PATIENT EVALUATION PROBLEM LIST: Patient Active [...] consultation, he saw [facility] and when to [facility]. No beds so sent to [facility] for [address] CAP, MRI, [...] x7 days with nice response. Pathology from [facility] reports large B-cell lymphoma. Double expresser. FISH for translocations are pending. Tongue swelling. No wt loss. Eating and drinking OK. No fevers, infections, No NS. Pain in neck. Prednisone 60mg daily X 7 days. I feel great on prednisone last day of prednisone is today. Took iron supplements per PCP - unclear cause. - last COLO at [facility] was 01/17/2012. INTERIM HISTORY [...] and needle of cervical LN. FISH from [facility] No MYCrearrangement and no fusion of MYC [...] only 1 biologic. Son Cheo Freire. Enjoys [facility], [employer], [employer], [employer]. Rep. 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 Not a . ETOH: 1-3 beers per week Smoking: Quit 1985. Approximately 33-xfeg-ezps history Vaping or electronic cigarettes: denies Chewing [...] and BCL-2 protein (Double Expressor.) Flow cytometry ([id number]) supports this interpretation. FISH from [facility] No MYC rearrangement and no fusion of MYC and IGH was observed, CD3 (SP7, [employer]) Background T-cells CD20 (L26, [place]) diffusely positive in Neoplastic B-cells PAX-5 (1EW, [employer]) diffusely positive in Neoplastic B-cells CD10 (SP67, [place]) Negative BCL-6 (G/191E/A8, [place]) Positive MUM-1 (MUM1p, [employer]) Positive Myc (Y69, [employer]) Positive BCL-2 Oncoprotein (124, [place]) Positive Ki67 (MIB-1) (K2, [employer]) Greater than 95% of cells in cycle Cyclin D1(SP4-R, [place]) Negative SAPPHIRE JOSE (HQY4951-H, [employer]) Negative. DIAGNOSTICS: 01/25/23 ECHO after C#5 [...] 08/22/2023 left upper extremity ultrasound performed at [facility] Notable findings: In the [...] undergo investigation with ultrasound. CT CAP at [facility], report and images have been [...] at least 1 month spent locally at [facility] and local hospital. Unfortunately, because ofhis age, [...] concepts, and the time it entails at [facility]. This would be a significant commitment for the patient and his family as they live [place] hours away from [facility]. They feel comfortable that they have [...] a report of increase in arterial thrombosis (CVA/ND) as well. This risk is very small. [...] LVEF at 50-55%. --asymptomatic --repeat echo at [facility] 1 year post completion [...] from 09/06/23 biopsy Repeat ECHO when at [facility] for CAR-T cell discussion Referral to CAR-T [...] 10:00 AM EDT Office Visit Hematology/Oncology at [address] [phone] Adrianne Ramon MD [facility] DR HEMATOLOGY [place] [address] Yael Merlos APRN [facility] HEMATOLOGY [place] [address] 10/03/2023 10:30 AM EDT Infusion Hematology Oncology at [address] [phone] 10/10/2023 2:45 PM EDT Appointment XRay at [address] [place] [phone] Micha Givens Jr., MD [facility] DR [place] [address] 10/10/2023 3:00 PM EDT Appointment Non-[place]vasive [place] [address] 10/10/2023 3:30 PM EDT Appointment [place] [address] 10/11/2023 8:30 AM EDT Infusion Hematology Oncology at [address] [phone] Scheduled Orders Name Type Priority [...] medications documented in this encounter Care Teams Truck Body Builder Apprentice Relationship Specialty Start Date End Date Frederick Meade MD [address] [place] [address] PCP - General Family Medicine 11/29/17 documented as of this encounter
--- OUTSIDE RECORDS SUMMARY | 2023-10-03 03:12 | XMS_ITS | Clinical Summary ---
Author Organization [facility] [place] [address] Care Team Providers Care Rehabilitation Teacher Name Role Phone Frederick Meade MD Primary Care Provider [phone] Allergies No known active allergies Medications Medication [...] Indications: progressive diffuse large B-cell lymphoma 09/12/2023 Active predniSONE (Deltasone) 20 mg tablet Take [...] Encounters Date Type Department Care Team Description 10/03/2023 10:30 AM EDT Infusion Hematology Oncology at [address] [phone] 09/28/2023 Telephone Hematology/Oncolog y at [address] [phone] Colt Ardon RN Constipation 09/26/2023 8:30 AM EDT Infusion Hematology Oncology at [address] [phone] Diffuse large B-cell lymphoma of lymph nodes of multiple regions 09/26/2023 Unscheduled Encounter Hematology/Oncolog y at [address] [phone] Nimisha Hale, KVNG Diffuse large B-cell lymphoma of lymph nodes of multiple regions 09/26/2023 Notes Only [place]ematology [place] [address] Yael Merlos APRN Hyperglycemia 09/26/2023 Travel 09/25/2023 10:00 AM EDT Telephone Hematology [place] [address] 09/25/2023 Orders Only [place] [address] Micha Givens Jr., MD Screening for colon cancer; Diffuse large B-cell lymphoma of lymph nodes of multiple regions; Stem cell transplant candidate; Pre-op testing 09/21/2023 10:51 AM EDT - 09/21/2023 11:59 PM EDT Hospital Encounter Hematology and Oncology at [place] [phone] Diffuse large B-cell lymphoma of lymph nodes of multiple regions; Stem cell transplant candidate; Pre-op testing; Prostate cancer screening; Iron deficiency anemia, unspecified iron deficiency anemia type Discharge Disposition: Home 09/21/2023 10:30 AM EDT Clinical Support Hematology and Oncology at [place] [phone] Danii Her RN Diffuse large B-cell lymphoma of lymph nodes of multiple regions 09/21/2023 9:30 AM EDT Office Visit Hematology and Oncology at [place] [phone] Micha Givens Jr., MD Diffuse large B-cell lymphoma of lymph nodes of multiple regions; Iron deficiency anemia, unspecified iron deficiency anemia type; Non-Hodgkin lymphoma of lymph nodes of multiple regions, unspecified non-Hodgkin lymphoma type 09/21/2023 Orders Only Hematology and Oncology at [place] [phone] Micha Givens Jr., MD Diffuse large B-cell lymphoma of lymph nodes of multiple regions; Stem cell transplant candidate; Pre-op testing; At high risk for bleeding; Prostate cancer screening; Iron deficiency anemia, unspecified iron deficiency anemia type 09/21/2023 Travel 09/20/2023 Orders Only Hematology and Oncology at [place] [phone] Micha Givens Jr., MD Diffuse large B-cell lymphoma of lymph nodes of multiple regions 09/19/2023 8:00 AM EDT Infusion Hematology Oncology at [address] [phone] Diffuse large B-cell lymphoma of lymph nodes of multiple regions 09/19/2023 Telephone Hematology/Oncolog y at [address] [phone] Polly Orellana RN Other (Prednisone taper ) 09/19/2023 Orders Only [place] [address] Adrianne Ramon MD 09/19/2023 Orders Only [place] [address] Yael Merlos, MOVE COORDINATOR Diffuse large B-cell lymphoma of lymph nodes of multiple regions 09/19/2023 Telephone Hematology/Oncolog y at [address] [phone] Polly Orellana, OSCAR Follow-up (Possible free drug thru [facility]) 09/19/2023 Notes Only Hematology/Oncolog y at [address] [phone] Shelley Cason, PORTFOLIO LEAD 09/19/2023 Travel 09/14/2023 Telephone Hematology/Oncolog y at [address] [phone] Brenda Priest RN 09/13/2023 Telephone Hematology/Oncolog y at [address] [phone] Colt Ardon, RN Other (Financial paperwork ) 09/12/2023 10:15 AM EDT Office Visit Hematology/Oncolog y at [address] [phone] Adrianne Ramon MD Stearns, Diane M, MOVE COORDINATOR Diffuse large B-cell lymphoma of lymph nodes of multiple regions; High risk medication use 09/12/2023 Telephone Hematology/Oncolog y at [address] [phone] Polly Orellana, RN New Medication Request (revlimid) 09/12/2023 Telephone Hematology/Oncolog y at [address] [phone] Adrianne Ramon MD 09/12/2023 Travel 09/06/2023 1:00 PM EDT - 09/06/2023 11:59 PM EDT Hospital [place] [address] Adrianne Ramon MD Discharge Disposition: Home 09/06/2023 12:59 PM EDT Hospital [place] [address] Adrianne Ramon MD Diffuse large B-cell lymphoma of lymph nodes of multiple regions; Skin nodule Discharge Disposition: Home 09/06/2023 10:15 AM EDT - 09/06/2023 12:58 PM EDT Hospital [place] [address] Adrianne Ramon MD Diffuse large B-cell lymphoma of lymph nodes of multiple regions; Skin nodule Discharge Disposition: Home 09/06/2023 9:48 AM EDT - 09/06/2023 10:14 AM EDT Hospital Encounter [place]ematology [place] [address] Diffuse large B-cell lymphoma of lymph nodes of multiple regions; Skin nodule Discharge Disposition: Home 09/06/2023 Travel 08/22/2023 12:30 PM EDT Office Visit Hematology/Oncolog y at [address] [phone] Adrianne Ramon MD Stearns, Diane M, MOVE COORDINATOR Diffuse large B-cell lymphoma of lymph nodes [...] Mass Index 30.04 09/26/2023 8:25 AM EDT Plan of Treatment Upcoming Encounters Date Type Department Care Team (Late st Contact Info) Description 10/03/2023 10:00 AM EDT Office Visit Hematology/Oncology at [address] [phone] Adrianne Ramon MD [facility] DR HEMATOLOGY [place] [address] Yael Merlos APRN [facility] [place] [address] 10/03/2023 10:30 AM EDT Infusion Hematology Oncology at [address] [phone] 10/10/2023 2:45 PM EDT Appointment XRay at [address] [place] [address] Micha Givens Jr., MD [facility] [place] [address] 10/10/2023 3:00 PM EDT Appointment Non-[place] [phone] 10/10/2023 3:30 PM EDT [place] [address] 10/11/2023 8:30 AM EDT Infusion Hematology Oncology at [address] [phone] Health Maintenance Due Date Last Done Comments CT Colonography 1948 Colonoscopy 1948 Colorectal Cancer Screening 1948 FIT DNA 1948 FIT 1948 Sigmoidoscopy (10 year) with FIT yearly 1948 Sigmoidoscopy 1948 Lipid Screening 1966 Tdap adult 1967 Tetanus vaccine 1967 Zoster vaccine (1 of 2) 1998 Advance Directive 2003 AAA Screen 2013 Pneumoccocal Vaccine: 65+ (1 of 1 - PCV) 2013 Covid-19 Vaccine (2022-24 season) 2022 Influenza (Flu) vaccine (1 o f 1 - Influenza standard series) 10/21/2023 Hepatitis C Screening Completed 10/17/2022 Medical Devices Explanted Type Area Toll Gate Tender Device Identifier Shelf Expiration Date Model / Serial / Lot Port Infusion 8fr Cath Power Injectable Lp 1lum Ct Ti [id number] Implanted:Qty: 1 on 10/17/2022 by Gail Jha PA Explanted:Qty: 1 on 03/29/2023 by Chalo Crews PA IMPLANTS Right: Chest Wall [employer] - [employer] BARD 03/21/2024 [id number] / / [id number] Procedures Procedure Name Priority Date/Time Associated Diagnosis Comments LAB SCAN 09/27/2023 12:00 AM EDT LAB SCAN 09/26/2023 12:00 AM EDT LAB SCAN 09/26/2023 12:00 AM EDT BLOOD DONOR SEROLOGIC TESTING Routine 09/21/2023 11:14 AM EDT TYPE AND SCREEN VALIDITY Routine 11:14 AM EDT ABORH RECHECK STATUS Routine 09/21/2023 11:14 AM EDT TYPE AND SCREEN ([facility]/CGP/MARCELINA) Routine 09/21/2023 11:14 AM EDT Diffuse large [...] anemia type CRP, ACUTE INFLAMMATION Routine 09/21/19 24 11:14 AM EDT Diffuse large B-cell lymphoma [...] to Health Maintenance Results * Scan Doc: Lab (09/27/2023 12:00 AM EDT) Only the most recent of7 resultswithin the time period is included. Narrative 09/27/2023 12:00 AM EDT Ordered by an unspecified provider. Scanning Provider MEDIA MGR SCAN EXT O RDR/RSLT * Blood Donor Serologic Testing (09/21/2023 11:14 AM EDT) Blood VENOUS BLOOD SPECIMEN / Unknown IP Care Team Draw / Unknown 09/21/2023 11:14 AM EDT 09/25/2023 4:30 PM EDT Micha Givens Jr., MD BLOOD BANK LAB ORDER DUONG Performing Organization Address City/[facility] Co de Phone Number [facility] [place] [address] * Type and Screen Validity (09/21/2023 11:14 AM EDT) T&S only valid at [facility] LABORATORY Comment:This Type and Screen result is only valid at the [facility] Blood 09/21/2023 11:1 4 AM EDT 09/21/2023 11:31 AM EDT Narrative Resulting Agency Comment Spec In Lab Micha Givens Jr., MD BLOOD BANK LAB ORDER DUONG Performing Organization Address City/[facility]/ZIP Co de Phone Number [facility] [place] [address] * Hemoglobin S Screen (09/21/2023 11:14 AM EDT) HGB S Screen Screen Negative Screen Negative [facility] Blood 09/21/2023 11:1 4 AM EDT 09/21/2023 11:30 AM EDT Narrative Resulting Agency Comment Spec In Lab Micha Givens Jr., MD HEMATOLOGY ORDERABLE S Performing Organization Address City/[facility]/ZIP Co de Phone Number [facility] [place] [address] * ABORH Recheck Status (09/21/2023 11:14 AM EDT) ABORH Recheck Order Order Placed [facility] ABORH Type Recheck not performed [facility] Blood 09/21/2023 11:1 4 AM EDT 09/21/2023 11:31 AM EDT Narrative Resulting Agency Comment Spec In Lab Micha Givens Jr., MD BLOOD BANK LAB ORDER DUONG Performing Organization Address City/[facility] Co de Phone Number [facility] [place] [address] * (ABNORMAL) CRP, acute inflammation (09/21/2023 11:14 AM EDT) C-Reactive Protein 52.8(H) <=4.9 mg/L [facility] Blood 09/21/2023 11:1 4 AM EDT 09/21/2023 11:30 AM EDT Narrative Resulting Agency Comment Spec In Lab Micha Givens Jr., MD CHEMISTRY ORDERABLES Performing Organization Address [facility] Co de Phone Number [facility] [place] [address] * PSA Screen (09/21/2023 11:14 AM EDT) Pathologist [facility] [place] PSA Screen 0.03 0.00 - 4.00 ng/mL [facility] Comment: PLEASE NOTE: The above [...] Jr., MD CHEMISTRY ORDERABLES Performing Organization Address City/[facility]/ZIP Co de Phone Number [facility] [place] [address] * Calcium, Ionized, Serum (09/21/2023 11:14 AM EDT) [facility] Ionized Calcium 1.25 1.15 - 1.33 mmol/L [facility] Comment: Note: Total bilirubin higher than 20 mg/dL may lead to falsely low ionized calcium. This test has not been cleared by the [place] FDA. Performance characteristics of this test were determined by [facility] in accordance with CLIA requirements. This laboratory is qualified under CLIA to perform high-complexity testing. Blood 09/21/2023 11:1 4 AM EDT 09/21/2023 11:30 AM EDT Narrative Resulting Agency Comment Spec In Lab Micha Givens Jr., MD CHEMISTRY ORDERABLES Performing Organization Address [facility] Co de Phone Number [facility] [place] [address] * (ABNORMAL) Hemogram (09/21/2023 11:14 AM EDT) Only the most recent of2 resultswithin the time period is included. Pathologist [facility] [place] White Blood Cell 7.3 4.0 - 9.5 x10(3)/mc L [facility] Red Blood Cell 4.20(L) 4.58 - 5.54 x10(6)/mc L [facility] Hemoglobin 12.3(L) 13.7 - 16.5 g/dL [facility] Hematocrit 38.4(L) 40.5 - 48.5 % [facility] Mean Cell Volume 91.4 82.9 - 93.1 fL [facility] Mean Cell Hemoglobin 29.3 27.5 - 32.1 pg [facility] Mean Cell Hemoglobin Concentration 32.0 32.0 - 35.7 g/dL [facility] Platelet 152 145 - 357 x10(3)/mc L [facility] RDW Standard Deviation 48.4(H) 36.0 - 45.0 fL [facility] RDW coefficient of variation 14.5(H) 11.4 - 13.8 % [facility] Mean Platelet Volume 11.5 7.6 - 12.9 fL [facility] NRBC% auto 0.0 % [facility] NRBC Absolute 0.000 0.000 - 0.000 x10(3)/ L [facility] Blood 09/21/2023 11:1 4 AM EDT 09/21/2023 11:30 AM EDT Narrative Resulting Agency Comment Spec In Lab Micha Givens Jr., MD HEMATOLOGY ORDERABLE S [facility] [place] [address] * (ABNORMAL) Differential, Automated (09/21/2023 11:14 AM EDT) Only the most recent of2 resultswithin the time period is included. Neutrophil % 90.8 % [facility] Neutrophil Absolute 6.59(H) 1.70 - 6.10 x10(3)/ L [facility] Lymph % 5.1 % [facility] Lymphocytes Abs 0.4(L) 0.9 - 3.2 x10(3)/ L [facility] Monocyte % 3.0 % [facility] Monocyte Abs 0.2(L) 0.3 - 0.9 x10(3)/ L [facility] Eos % 0.4 % [facility] Eosinophils Abs 0.0 0.0 - 0.4 x10(3)/ L [facility] Basophil % 0.1 % [facility] Baso Absolute 0.0 0.0 - 0.1 x10(3)/ L [facility] Immature Gran % 0.60 % [facility] Comment: Immature granulocytes(IG's)percentage and absolute count will include metamyelocytes, myelocytes, and promyelocytes. Blood smears from CBCs yielding IG's will be scanned manually for concordance. If this scan disagrees with the automated IG or if promyelocytes are noted, a manual differential will be performed. Immature Gran Absolute 0.04 0.00 - 0.04 x10(3)/mc L [facility] Blood 09/21/2023 11:1 4 AM EDT 09/21/2023 11:30 AM EDT Narrative Resulting Agency Comment Spec In Lab Micha Givens Jr., MD HEMATOLOGY ORDERABLE S Performing Organization Address City/[facility]/ZIP Co de Phone Number [facility] [place] [address] * HSV 1 and 2 IgG Antibodies (09/21/2023 11:14 AM EDT) HSV Type 1 Ab, IgG Negative Negative [facility] HSV Type 2 Ab, IgG Negative Negative [facility] Blood 09/21/2023 11:1 4 AM EDT 09/21/2023 1:04 PM EDT Narrative Resulting Agency Comment Spec In Lab Micha Givens Jr., MD IMMUNOLOGY ORDERABLE S Performing Organization Address City/[facility]/ZIP Co de Phone Number [facility] [place] [address] * (ABNORMAL) Alton-Pickett Virus Antibodies (09/21/2023 11:14 AM EDT) EBV (VCA) IgG Ab Positive(A) Negative [facility] EBV (VCA) IgM Ab Negative Negative [facility] EBNA Antibodies Positive(A) Negative [facility] EBV Interpretation Past EBV infection. [facility] Comment: In most populations, at [...] MD IMMUNOLOGY ORDERABLE S Performing Organization Address [facility] Co de Phone Number [facility] [place] [address] * CMV Antibody, IgM (09/21/2023 11:14 AM EDT) CMV IgM Negative Negative [facility] Blood 09/21/2023 11:1 4 AM EDT 09/21/2023 1:04 PM EDT Narrative Resulting Agency Comment Spec In Lab Micha Givens Jr., MD IMMUNOLOGY ORDERABLE S Performing Organization Address [facility] Co de Phone Number [facility] [place] [address] * (ABNORMAL) Iron and TIBC (09/21/2023 11:14 AM EDT) [facility] Iron 39(L) 45 - 160 mcg/dL [facility] TIBC 255 250 - 450 mcg/dL [facility] Iron Saturation 15(L) 20 - 50 % [facility] Blood 09/21/2023 11:1 4 AM EDT 09/21/2023 11:30 AM EDT Narrative Resulting Agency Comment Spec In Lab Micha Givens Jr., MD CHEMISTRY ORDERABLES Performing Organization Address [facility] Co de Phone Number [facility] [place] [address] * Toxoplasma Antibody, IgM (09/21/2023 11:14 AM EDT) Toxoplasma Antibody IgM Negative Negative [facility] Blood 09/21/2023 11:1 4 AM EDT 09/21/2023 1:04 PM EDT Narrative Resulting Agency Comment Spec In Lab Micha Givens Jr., MD IMMUNOLOGY ORDERABLE S [facility] [place] [address] * Toxoplasma Antibody, IgG (09/21/2023 11:14 AM EDT) Toxoplasma Antibody IgG Negative Negative [facility] Blood 09/21/2023 11:1 4 AM EDT 09/21/2023 1:04 PM EDT Narrative Resulting Agency Comment Spec In Lab Micha Givens Jr., MD IMMUNOLOGY ORDERABLE S Performing Organization Address City/[facility]/ZIP Co de Phone Number [facility] [place] [address] * CMV Antibody, IgG (09/21/2023 11:14 AM EDT) CMV IgG Negative Negative [facility] Blood 09/21/2023 11:1 4 AM EDT 09/21/2023 1:04 PM EDT Narrative Resulting Agency Comment Spec In Lab Micha Givens Jr., MD IMMUNOLOGY ORDERABLE S Performing Organization Address City/[facility]/ZIP Co de Phone Number [facility] [place] [address] * Type and screen ([facility]/CGP/MARCELINA) (09/21/2023 11:14 AM EDT) ABORH Type O NEGATIVE [facility] Patient BB History Not Found [facility] Expires at [id number] on: 09/24/2023 [facility] Ab Screen Interp Negative [facility] Blood 09/21/2023 11:1 4 AM EDT 09/21/2023 11:14 AM EDT Narrative [facility] - 09/21/2023 11:14 AM EDT This Type and Screen result is only valid at the [facility] Resulting Agency Comment Spec In Lab Micha Givens Jr., MD BLOOD BANK LAB ORDER DUONG Performing Organization Address [facility] Co de Phone Number [facility] [place] [address] * Direct antiglobulin test (09/21/2023 11:14 AM EDT) WILLIAN Negative [facility] 09/21/2023 11:1 4 AM EDT 09/21/2023 11:14 AM EDT Micha Givens Jr., MD BLOOD BANK LAB ORDER DUONG Performing Organization Address [facility] de Phone Number [facility] [place] [address] * Varicella zoster Antibody, IgG (09/21/2023 11:14 AM EDT) Varicella Zoster Antibody IgG Positive Positive [facility] Comment: A positive result for this assay is considered to be an indicator of positive immune status. Blood 09/21/2023 11:1 4 AM EDT 09/21/2023 1:04 PM EDT Narrative Resulting Agency Comment Spec In Lab Micha Givens Jr., MD IMMUNOLOGY ORDERABLE S Performing Organization Address City/[facility] Co de Phone Number [facility] [place] [address] * Uric acid (09/21/2023 11:14 AM EDT) Uric Acid 5.1 3.5 - 8.5 mg/dL [facility] Blood 09/21/2023 11:1 4 AM EDT 09/21/2023 11:30 AM EDT Narrative Resulting Agency Comment Spec In Lab Micha Givens Jr., MD CHEMISTRY ORDERABLES [facility] [place] [address] * Phosphorus (09/21/2023 11:14 AM EDT) Phosphorus 2.9 2.5 - 4.5 mg/dL [facility] Blood 09/21/2023 11:1 4 AM EDT 09/21/2023 11:30 AM EDT Narrative Resulting Agency Comment Spec In Lab Micha Givens Jr., MD CHEMISTRY ORDERABLES Performing Organization Address [facility] Co de Phone Number [facility] [place] [address] * Magnesium (09/21/2023 11:14 AM EDT) Magnesium 0.80 0.69 - 1.07 mmol/L [facility] Blood 09/21/2023 11:1 4 AM EDT 09/21/2023 11:30 AM EDT Narrative Resulting Agency Comment Spec In Lab Micha Givens Jr., MD CHEMISTRY ORDERABLES Performing Organization Address [facility] Co de Phone Number [facility] [place] [address] * (ABNORMAL) Lactate Dehydrogenase (09/21/2023 11:14 AM EDT) Only the most recent of2 resultswithin the time period is included. Lactate Dehydrogenase 426(H) 110 - 220 unit/L [facility] Blood 09/21/2023 11:1 4 AM EDT 09/21/2023 11:30 AM EDT Narrative Resulting Agency Comment Spec In Lab Micha Givens Jr., MD CHEMISTRY ORDERABLES [facility] [place] [address] * Ferritin (09/21/2023 11:14 AM EDT) Ferritin 393 31 - 409 ng/mL [facility] Comment: Please note that as of 01/24/2023, the reference intervals for Ferritin have been updated. Blood 09/21/2023 11:1 4 AM EDT 09/21/2023 11:30 AM EDT Narrative Resulting Agency Comment Spec In Lab Micha Givens Jr., MD CHEMISTRY ORDERABLES [facility] [place] [address] * (ABNORMAL) Comprehensive metabolic panel (non-fasting) (09/21/2023 11:14 AM EDT) Only the most recent of3 resultswithin the time period is included. Glucose 326(H) 65 - 199 mg/dL [facility] Comment:Diabetes: >=200 mg/d L plus symptoms Blood Urea Nitrogen 26(H) 10 - 20 mg/dL [facility] Creatinine 1.16 0.80 - 1.50 mg/dL [facility] Sodium 138 135 - 145 mmol/L [facility] Potassium 4.0 3.5 - 5.0 mmol/L [facility] Comment: Please note: ??Patients with WBC >100,000 may have falsely elevated Potassium levels. ??For accurate Potassium quantification in these patients send serum separator tube (gold top) for subsequent determinations. ??Contact the Clinical Chemistry Laboratory if there are any questions. Chloride 103 98 - 107 mmol/L [facility] Carbon Dioxide 21(L) 22 - 31 mmol/L [facility] Anion Gap 14 5 - 15 mmol/L [facility] Calcium 9.5 8.5 - 10.5 mg/dL [facility] Protein, Total 6.3 6.1 - 8.0 g/dL [facility] Albumin 3.9 3.2 - 5.2 g/dL [facility] Aspartate Aminotransferase 54(H) 0 - 39 unit/L [facility] Alanine Aminotransferase 72(H) 0 - 55 unit/L [facility] Alkaline Phosphatase 202(H) 40 - 130 unit/L [facility] Bilirubin, Total 0.4 0.2 - 1.3 mg/dL [facility] Est Glomerular Filtration Rate 66 >=60 mL/min/1. 73 m?? [facility] Lab Micha Givens Jr., MD CHEMISTRY ORDERABLES [facility] [place] [address] * Urinalysis with reflex Culture (09/21/2023 11:11 AM EDT) Glucose, Urine Dipstick Negative Negative mg/dL [facility] Protein, Urine Dipstick Negative Negative mg/dL [facility] Bilirubin, Urine Dipstick Negative Negative mg/dL [facility] Comment: Clinical correlation required for positive Urine Bilirubin results as false positive may occur with some drugs and drug related products. If a false positive is suspected a serum total bilirubin should be considered if clinically indicated. Urobilinogen, Urine Dipstick Normal Normal mg/dL [facility] pH, Urn (dipstick) 6.5 5.0 - 8.0 [facility] Blood, Urine Dipstick Negative Negative mg/dL [facility] Ketone, Urine Dipstick Negative Negative mg/dL [facility] Nitrite, Urine Dipstick Negative Negative [facility] Leukocytes, Urine Dipstick Negative Negative [facility] Appearance, Urine Dipstick Clear Clear [facility] Specific [place] Urine Automated 1.009 1.005 - 1.030 [facility] Color, Urine Dipstick Yellow Yellow [facility] Reflex to Culture No [facility] Clean Catch Urine 09/21/2023 11:11 AM EDT 09/21/2023 11:33 AM EDT Narrative Resulting Agency Comment Spec In Lab Micha Givens Jr., MD URINE ORDERABLES [facility] [place] [address] * Scan Doc: Echo (09/17/2023 12:00 AM EDT) Anatomical Region Laterality Modality Cardiac Other Narrative 09/17/2023 12:00 AM EDT Ordered by an unspecified provider. Scanning Provider MEDIA MGR SCAN EXT O RDR/RSLT * NM PET CT Standard Plus Extremities and Head (09/06/2023 2:45 PM EDT) WORKSTATION ID [id number] RAD Anatomical Region Laterality Modality Positron Emissio [...] questions please contact the health day care aide that requested your imaging first. ? Electronically signed by: Rohan Henley MD, [facility] ([phone]), at 09/10/2023 11:18 AM Narrative 09/10/2023 11:18 [...] unspecified. TECHNIQUE: Procedure: Following IV injection of 19-tnpsyy-6-deoxyglucose (FDG) a standard uptake of approximately 60 [...] unspecified. TECHNIQUE: Procedure: Following IV injection of 96-thjywk-9-deoxyglucose(FDG) a standard uptake of approximately 60 minutes, [...] have questions please contactthe health day care aide that requested your imaging first. Electronically signed by: Rohan Henley MD, [facility]([phone]), at 09/10/2023 11:18 AM Adrianne Ramon MD IMG PET ORDERABL ES * POCT Glucose (09/06/2023 1:06 PM EDT) Only the most recent of2 resultswithin the time period is included. Glucose, POC 98 65 - 199 mg/dL [facility] Comment: Supplemental ranges: <140 mg/dL before meals <180 mg/dL all other times of the day Blood 09/06/2023 1:06 PM EDT 09/06/2023 1:06 PM EDT Adrianne Ramon MD POINT OF CARE TE ST ORDERABLES [facility] [place] [address] * IR Biopsy Lymph Node (Chest/Abdomen/Pelvis) (09/06/2023 [...] in saline and formalin. Resident/Fellow: None. Attending: IDr. Pearl performed this procedure. ? Adrianne Ramon MD G IR ORDERABLE S * Immunophenotyping Flow Cytometry (09/06/2023 12:28 PM EDT) Only the most recent of2 resultswithin the time period is included. Immunophenotyping Flow See Comment [facility] Comment: When completed by the Pathologist, the Flow Cytometry Report ([id number]) will display under the Pathology Results section within eDH. Other 09/06/2023 12:2 8 PM EDT 09/06/2023 12:47 PM EDT Narrative Resulting Agency Comment Spec In Lab Micha Pearl MD HEMATOLOGY ORDERABLE S [facility] [place] [address] * Flow Cytometry Report (09/06/2023 12:28 PM EDT) Only the most recent of2 resultswithin the time period is included. Flow Cytometry Report [id number] ? Location: [facility] The signing pathologist has (i) examined the relevant preparation(s) for the specimen(s) and (ii) rendered or confirmed the diagnosis(es). . ?Flow Cytometry DIAGNOSIS ? 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 See comment. Electronically signed by: ?Dana OCASIO, [place] Verified: ??09/10/2023 15:05 ??Hematopathologist Performed at: ??-[facility] Dept. of Pathology, [place] [address] [address] Supervisor: Katherine Lopez MD, FCAP, ??CLIA Certificate: [id number] DISCUSSION The T-lymphocytes , B- lymphocytes and [...] high complexity clinical laboratory testing. SPECIMEN PROCESSING [id number] Cells for immunophenotypic analysis were derived from LEFT AUX LYMPH NODE. CD45 vs side scatter gating was utilized to identify a LYMPHOID analysis region that comprises approximately 95-97% of all cells. The following markers were assessed: CD2, CD3, CD4, CD5, CD7, CD8, CD10, CD19, CD20, CD23, CD38, CD45, CD56, FMC-7, kappa light chain, and lambda light chain. CLINICAL INFORMATION dlbcl [facility] 09/06/2023 12:2 8 PM EDT Micha Pearl MD PATHOLOGY/CYTOLOGY O RDERABLES [facility] [place] [address] * chromo report acquired (09/06/2023 11:35 AM EDT) Cytogenetics Acquired Report Final Report ? [id number] Specimen Type: Fixed Tissue Specimen Condition: 1 [...] using dual-color, break-apart probes for BCL6/3q27 rearrangement ([employer] shows a signal pattern consistent with a BCL6 rearrangement in 0% of 100 cells. This is within the acceptable reference limits (0-7.4%). Thus, there is no evidence for BCL6/3q27 gene rearrangement. Interphase FISH analysis using dual-color, break-apart probes for MYC/8q24 rearrangement ([employer] shows 0% of 100 cells with a MYC rearrangement signal pattern. This is within acceptable reference limits (0-6.0%). Thus, there is no evidence for MYC/8q24 gene rearrangement. Interphase FISH analysis using dual-color, dual-fusion probes for MYC-IGH/t(8;14)(q2 4;q32) ([employer] shows 0% of 100 cells with a MYC-IGH rearrangement signal pattern. This is within acceptable reference limits (0-3.0%). Thus, there is no evidence for MYC-IGH/t(8;14) gene rearrangement. Interphase FISH analysis using dual-color, dual-fusion probes for CCND1-IGH/t(11;14) (q24;q32) ([employer] shows 0% of 100 cells with [...] its performance characteristics were determined by the [facility] ([facility]) Cytogenetics Laboratory as required by The Clinical [...] the test? s accuracy and precision. The [facility] Cytogenetics Laboratory is certified under the CLIA? 88 as qualified to perform high complexity clinical laboratory testing. Chromosome alterations outside the regions complementary to these DNA FISH probes will not be detected. 09.20.23 (Electronic Signature) Verified By: Channing Ph.D., [facility], Tommy A Clinical Head Boys Golf Coach/Mol ecular Solid Waste Engineer [facility] 09/06/2023 11:3 5 AM EDT 09/11/2023 8:57 AM EDT James Champion DO HEMATOLOGY ORDERABLE S [facility] [place] [address] * (ABNORMAL) Surgical Pathology Report (09/06/2023 11:35 AM EDT) Surgical Pathology Report [id number] ? Location: [facility] The signing pathologist has (i) examined the relevant preparation(s) for the specimen(s) and (ii) rendered or confirmed the diagnosis(es). . 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 B - Left axillary lymph node, biopsy Diagnosis : D iffuse large B-cell lymphoma- NOS. Electronically signed by: ?Dana OCASIO, [facility] Verified: ??09/10/2023 18:38 ??Hematopathologist Performed at: ??-[facility] Dept. of Pathology, [place] [address] [place] [address] Supervisor: Katherine Lopez MD, AP, ??CLIA Certificate: [id number] SYNOPTIC THIS RESULT REQUIRES PHYSICIAN/A.P.P. FOLLOW UP [...] lymphoid neoplasms . Blood . 2016. 127 (20):3177-5031. Rafael CP et al . Blood 103:275-282 [...] submitted in 2 cassettes labeled B1-B2. ??CCP(A) [facility] 09/06/2023 11:3 5 AM EDT James Champion DO PATHOLOGY/CYTOLOGY O RDERABLES Performing Organization Address City/[facility]/ZIP Co de Phone Number [facility] [place] [address] * Anaerobic Culture (09/06/2023 11:25 AM EDT) Anaerobic Culture No anaerobic organisms isolated [facility] Arm 09/06/2023 11:2 5 AM EDT 09/06/2023 12:21 PM EDT Comment:Left Arm Collection versus mass Narrative Resulting Agency Comment Spec In Lab James Champion DO MICROBIOLOGY - GENER AL ORDERABLES Performing Organization Address City/[facility]/ZIP Co de Phone Number [facility] [place] [address] * Calcofluor White Stain (09/06/2023 11:25 AM EDT) Calcofluor Stain Calcofluor White Preparation: Negative [facility] Other 09/06/2023 11:2 5 AM EDT 09/06/2023 12:21 PM EDT Comment:Left Arm Collection versus Mass Narrative Resulting Agency Comment Spec In Lab James Champion DO MICROBIOLOGY - [place] [address] * Tissue culture (09/06/2023 11:25 AM EDT) Tissue Culture No growth [facility] Gram Stain Few Neutrophils seen No microorganisms seen. [facility] Arm 09/06/2023 11:2 5 AM EDT 09/06/2023 12:21 PM EDT Comment:Left Arm Collection versus mass Narrative Resulting Agency Comment Spec In Lab James Champion DO MICROBIOLOGY - GENER AL ORDERABLES Performing Organization Address City/[facility]/[place] [address] * Specimen to Pathology (09/06/2023 11:20 AM EDT) Only the most recent of2 resultswithin the time period is included. AP Specimen 09/06/2023 11:2 0 AM EDT 09/06/2023 11:20 AM EDT Narrative [facility] - 09/06/2023 11:20 AM EDT Specimen requisition ordered. ??Separate Pathology report to follow James Champion DO PATHOLOGY/CYTOLOGY O RDERABLES Performing Organization Address City/[facility]/[place] [address] * Cytopathology Non-Gynecological (09/06/2023 10:41 AM EDT) AP Specimen 09/06/2023 10:4 1 AM EDT 09/06/2023 10:41 AM EDT Narrative [facility] - 09/06/2023 10:41 AM EDT Specimen requisition ordered. ??Separate Pathology report to follow Micha Pearl MD PATHOLOGY/CYTOLOGY O RDERABLES Performing Organization Address City/[facility]/ZIP Co de Phone Number [facility] [place] [address] * Blood culture (09/06/2023 10:12 AM EDT) Blood Culture No growth at 5 days. [facility] Blood ANTECUBITAL REGION STRUCTURE / Unknown 09/06/2023 10:12 AM EDT 09/06/2023 10:31 AM EDT Comment:Peripheral culture Narrative Resulting Agency Comment Spec In Lab Adrianne Ramon MD MICROBIOLOGY - B LOOD ORDERABLES Performing Organization Address [facility] Co de Phone Number [facility] [place] [address] * CBC (with Diff) (08/22/2023) White Blood Cell 8.12 Hemoglobin 13.2 Hematocrit 38.4 Platelet 199 ANC 6.02 Blood 08/22/2023 Historical Provider HEMATOLOGY ORDERA BLES * Hepatitis C Antibody (10/17/2022 11:45 AM EDT) Hepatitis C Antibody Negative Negative [facility] Blood 10/17/2022 11:4 5 AM EDT 10/17/2022 12:08 PM EDT Narrative Resulting Agency Comment Spec In Lab Adrianne Ramon MD CHEMISTRY ORDERA BLES Performing Organization Address City/[facility]/ZIP Co de Phone Number [place] [address] from Last 3 Months or Most Recently Relevant to Health Maintenance Advance Directives Documents on File Type Date Recorded Patient Trace Evidence Technician Expl anation POLST/COLST (Order for Life Sustaining [...] Status decision made by: Patient Care Teams Rehabilitation Teacher Relationship Specialty Start Date End Date Frederick Meade MD [address] [place] [address] PCP - General Family Medicine 11/29/17
--- OUTSIDE RECORDS SUMMARY | 2023-10-03 03:12 | XMS_ITS | Encounter Summary ---
Author Organization [facility] [place] [address] Care Team Providers Care Power Generation Equipment Repairer Name Role Phone Frederick Meade MD Primary Care Provider [phone] Reason for Referral * Consultation (Routine) - Authorized Specialty Diagnoses / Procedures Referred By Paul bowen Referred To Contact Instructor Of Spanish Diagnoses 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 Pre-op testing Micha Givens Jr., MD [facility] [address] HEMATOLOGY [place] [address] Maria L Barnes MSW Referral ID Status Reason Start Date Expiration Date Visits Requested Visits Authorized [id number] Authorized Consult, Test & Treat 09/21/2023 09/20/2024 1 1 * Consultation (Routine) - Authorized Specialty Diagnoses / Procedures Referred By Paul bowen Referred To Contact Diagnoses 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 Pre-op testing Micha Givens Jr., MD [facility] [address] [place]EM[place] [address] [facility] [place] [address] Referral ID Status Reason Start Date Expiration Date Visits Requested Visits Authorized [id number] Authorized Continuity of Care 09/21/2023 09/20/2024 1 1 Encounter Details Date Type Department Care Team (Late st Contact Info) Description 09/21/2023 Orders Only Hematology and Oncology [facility] [place] [address] Micha Givens Jr., MD [facility] HEMATOLOGY [place] [address] Diffuse large B-cell lymphoma of lymph nodes [...] AM EDT Office Visit Hematology/Oncology at [address] [phone] Adrianne Ramon MD [facility] HEMATOLOGY [place] [address] Yael Merlos APRN [facility] HEMATOLOGY [place] [address] 10/03/2023 10:30 AM EDT Infusion Hematology Oncology at [address] [phone] 10/10/2023 2:45 PM EDT Appointment XRay at [address] [place] [address] Micha Givens Jr., MD [facility] HEMATOLOGY [place] [address] 10/10/2023 3:00 PM EDT Appointment [place] [address] 10/10/2023 3:30 PM EDT [place] [address] 10/11/2023 8:30 AM EDT Infusion Hematology Oncology at [address] [phone] Pending Results Name Type Priority Associated Diagnoses [...] EDT) Iron 39(L) 45 - 160 mcg/dL [facility] TIBC 255 250 - 450 mcg/dL [facility] Iron Saturation 15(L) 20 - 50 % [facility] Blood 09/21/2023 11:1 4 AM EDT 09/21/2023 11:30 AM EDT Narrative Resulting Agency Comment Spec In Lab Micha Givens Jr., MD CHEMISTRY ORDERABLES Performing Organization Address City/[facility] Co de Phone Number [facility] [place] [address] * (ABNORMAL) CRP, acute inflammation (09/21/2023 11:14 AM EDT) C-Reactive Protein 52.8(H) <=4.9 mg/L [facility] Blood 09/21/2023 11:1 4 AM EDT 09/21/2023 11:30 AM EDT Narrative Resulting Agency Comment Spec In Lab Micha Givens Jr., MD CHEMISTRY ORDERABLES Performing Organization Address [facility] Co de Phone Number [facility] [place] [address] * Ferritin (09/21/2023 11:14 AM EDT) Ferritin 393 31 - 409 ng/mL [facility] Comment: Please note that as of 01/24/2023, the reference intervals for Ferritin have been updated. Blood 09/21/2023 11:1 4 AM EDT 09/21/2023 11:30 AM EDT Narrative Resulting Agency Comment Spec In Lab Micha Givens Jr., MD CHEMISTRY ORDERABLES Performing Organization Address City/[facility] Co de Phone Number [facility] [place] [address] * Uric acid (09/21/2023 11:14 AM EDT) Uric Acid 5.1 3.5 - 8.5 mg/dL [facility] Blood 09/21/2023 11:1 4 AM EDT 09/21/2023 11:30 AM EDT Narrative Resulting Agency Comment Spec In Lab Micha Givens Jr., MD CHEMISTRY ORDERABLES Performing Organization Address City/[facility] Co de Phone Number [facility] [place] [address] * Calcium, Ionized, Serum (09/21/2023 11:14 AM EDT) Ionized Calcium 1.25 1.15 - 1.33 mmol/L [facility] Comment: Note: Total bilirubin higher than 20 mg/dL may lead to falsely low ionized calcium. This test has not been cleared by the [place] FDA. Performance characteristics of this test were determined by [facility] in accordance with CLIA requirements. This laboratory is qualified under CLIA to perform high-complexity testing. Blood 09/21/2023 11:1 4 AM EDT 09/21/2023 11:30 AM EDT Narrative Resulting Agency Comment Spec In Lab Micha Givens Jr., MD CHEMISTRY ORDERABLES Performing Organization Address [facility] Co de Phone Number [facility] [place] [address] * Toxoplasma Antibody, IgM (09/21/2023 11:14 AM EDT) Toxoplasma Antibody IgM Negative Negative [facility] Blood 09/21/2023 11:1 4 AM EDT 09/21/2023 1:04 PM EDT Narrative Resulting Agency Comment Spec In Lab Micha Givens Jr., MD IMMUNOLOGY ORDERABLE S Performing Organization Address [facility]/ZIP Co de Phone Number [facility] [place] [address] * Toxoplasma Antibody, IgG (09/21/2023 11:14 AM EDT) Toxoplasma Antibody IgG Negative Negative [facility] Blood 09/21/2023 11:1 4 AM EDT 09/21/2023 1:04 PM EDT Narrative Resulting Agency Comment Spec In Lab Micha Givens Jr., MD IMMUNOLOGY ORDERABLE S Performing Organization Address City/[facility]/ZIP Co de Phone Number [facility] [place] [address] * PSA Screen (09/21/2023 11:14 AM EDT) PSA Screen 0.03 0.00 - 4.00 ng/mL [facility] Comment: PLEASE NOTE: The above reference interval is intended for healthy males with an intact prostate. Values within this reference interval may indicate recurrence in men who have undergone radical prostatectomy. This result was generated using a [employer] immunoassay. ??Results obtained from other methods or manufacturers cannot be used interchangeably with this method. Blood 09/21/2023 11:1 4 AM EDT 09/21/2023 11:30 AM EDT Narrative Resulting Agency Comment Spec In Lab Micha Givens Jr., MD CHEMISTRY ORDERABLES Performing Organization Address [facility] Co de Phone Number [facility] [place] [address] * Phosphorus (09/21/2023 11:14 AM EDT) Phosphorus 2.9 2.5 - 4.5 mg/dL [facility] Blood 09/21/2023 11:1 4 AM EDT 09/21/2023 11:30 AM EDT Narrative Resulting Agency Comment Spec In Lab Micha Givens Jr., MD CHEMISTRY ORDERABLES Performing Organization Address [facility] Co de Phone Number [facility] [place] [address] * Magnesium (09/21/2023 11:14 AM EDT) Magnesium 0.80 0.69 - 1.07 mmol/L [facility] Blood 09/21/2023 11:1 4 AM EDT 09/21/2023 11:30 AM EDT Narrative Resulting Agency Comment Spec In Lab Micha Givens Jr., MD CHEMISTRY ORDERABLES [facility] [place] [address] * Type and screen ([facility]/CGP/MARCELINA) (09/21/2023 11:14 AM EDT) Pathologist [facility] ABORH Type O NEGATIVE [facility] Patient BB History Not Found [facility] Expires at [id number] on: 09/24/2023 [facility] Ab Screen Interp Negative [facility] Blood 09/21/2023 11:1 4 AM EDT 09/21/2023 11:14 AM EDT Narrative [facility] - 09/21/2023 11:14 AM EDT This Type and Screen result is only valid at the [facility] Resulting Agency Comment Spec In Lab Micha Givens Jr., MD BLOOD BANK LAB ORDER DUONG Performing Organization Address [facility]/ZIP Co de Phone Number [facility] [place] [address] * Varicella zoster Antibody, IgG (09/21/2023 11:14 AM EDT) [facility] [address] Varicella Zoster Antibody IgG Positive Positive [facility] Comment: A positive result for this assay is considered to be an indicator of positive immune status. Blood 09/21/2023 11:1 4 AM EDT 09/21/2023 1:04 PM EDT Narrative Resulting Agency Comment Spec In Lab Micha Givens Jr., MD IMMUNOLOGY ORDERABLE S Performing Organization Address City/[facility]/ZIP Co de Phone Number [facility] [place] [address] * HSV 1 and 2 IgG Antibodies (09/21/2023 11:14 AM EDT) HSV Type 1 Ab, IgG Negative Negative [facility] HSV Type 2 Ab, IgG Negative Negative [facility] Blood 09/21/2023 11:1 4 AM EDT 09/21/2023 1:04 PM EDT Narrative Resulting Agency Comment Spec In Lab Micha Givens Jr., MD IMMUNOLOGY ORDERABLE S [facility] [place] [address] * (ABNORMAL) Alton-Dominguez Virus Antibodies (09/21/2023 11:14 AM EDT) EBV (VCA) IgG Ab Positive(A) Negative [facility] EBV (VCA) IgM Ab Negative Negative [facility] EBNA Antibodies Positive(A) Negative [facility] EBV Interpretation Past EBV infection. [facility] Comment: In most populations, [...] MD IMMUNOLOGY ORDERABLE S Performing Organization Address City/[facility]/ZIP Co de Phone Number [facility] [place] [address] * CMV Antibody, IgM (09/21/2023 11:14 AM EDT) CMV IgM Negative Negative [facility] Blood 09/21/2023 11:1 4 AM EDT 09/21/2023 1:04 PM EDT Narrative Resulting Agency Comment Spec In Lab Micha Givens Jr., MD IMMUNOLOGY ORDERABLE S Performing Organization Address City/[facility]/ZIP Co de Phone Number [facility] [place] [address] * CMV Antibody, IgG (09/21/2023 11:14 AM EDT) CMV IgG Negative Negative [facility] Blood 09/21/2023 11:1 4 AM EDT 09/21/2023 1:04 PM EDT Narrative Resulting Agency Comment Spec In Lab Micha Givens Jr., MD IMMUNOLOGY ORDERABLE S Performing Organization Address [facility] Co de Phone Number [facility] [place] [address] * Urinalysis with reflex Culture (09/21/2023 11:11 AM EDT) Glucose, Urine Dipstick Negative Negative mg/dL [facility] Protein, Urine Dipstick Negative Negative mg/dL [facility] Bilirubin, Urine Dipstick Negative Negative mg/dL [facility] Comment: Clinical correlation required for positive Urine Bilirubin results as false positive may occur with some drugs and drug related products. If a false positive is suspected a serum total bilirubin should be considered if clinically indicated. Urobilinogen, Urine Dipstick Normal Normal mg/dL [facility] pH, Urn (dipstick) 6.5 5.0 - 8.0 [facility] Blood, Urine Dipstick Negative Negative mg/dL [facility] Ketone, Urine Dipstick Negative Negative mg/dL [facility] Nitrite, Urine Dipstick Negative Negative [facility] Leukocytes, Urine Dipstick Negative Negative [facility] Appearance, Urine Dipstick Clear Clear [facility] Specific [place] Urine Automated 1.009 1.005 - 1.030 [facility] Color, Urine Dipstick Yellow Yellow [facility] Reflex to Culture No [facility] Clean Catch Urine 09/21/2023 11:11 AM EDT 09/21/2023 11:33 AM EDT Narrative Resulting Agency Comment Spec In Lab Micha Givens Jr., MD URINE ORDERABLES [facility] [place] [address] documented in this encounter Visit Diagnoses Diagnosis [...] type documented in this encounter Care Teams Power Generation Equipment Repairer Relationship Specialty Start Date End Date Frederick Meade MD [address] [place] [address] PCP - General Family Medicine 11/29/17 documented as of this encounter
--- OUTSIDE RECORDS SUMMARY | 2023-10-03 03:12 | XMS_ITS | Encounter Summary ---
Author Organization [facility] [place] [address] Care Team Providers Care Chemistry Associate Name Role Phone Frederick Meade MD Primary Care Provider [phone] Encounter Details Date Type Department Care Team [...] 10:00 AM EDT Office Visit Hematology/Oncology at [address] [phone] Adrianne Ramon MD [facility] DR HEMATOLOGY [place] [address] Yael Merlos APRN [facility] DR HEMATOLOGY [place] [address] 10/03/2023 10:30 AM EDT Infusion Hematology Oncology at [address] [phone] 10/10/2023 2:45 PM EDT Appointment XRay at [address] [place] [address] Micha Givens Jr., MD [facility] HEMATOLOGY [place] [address] 10/10/2023 3:00 PM EDT Appointment Non-Invasive [place] [phone] 10/10/2023 3:30 PM EDT [place] [address] 10/11/2023 8:30 AM EDT Infusion Hematology Oncology at [address] [phone] documented as of this encounter Visit Diagnoses Not on filedocumented in this encounter Care Teams Chemistry Associate Relationship Specialty Start Date End Date Frederick Meade MD [address] [facility] [address] [place] [address] PCP - General Family Medicine 11/29/17 documented as of this encounter
--- OUTSIDE RECORDS SUMMARY | 2023-10-03 03:12 | XMS_ITS | Encounter Summary ---
Author Organization [facility] Address [facility] [place] [address] Care Team Providers Care Piece Cutter Name Role Phone Frederick Meade MD Primary Care Provider [phone] Reason for Visit * Reason Onset Date Comments New Medication Request 09/12/2023 revlimid Encounter Details Date Type Department Care Team (Late st Contact Info) Description 09/12/2023 Telephone Hematology/Oncology at [address] [phone] Polly Orellana RN New Medication [...] Prescriber online survey done 09/12/23 with the [employer] Revlimid REMS Program Revlimid Auth # [id number] Pt Survey done on 09/12/23 Prescription to be manually faxed to [employer] [phone] phone [phone] after obtaining signature Adrianne Ramon MD Script [...] 10:00 AM EDT Office Visit Hematology/Oncology at [address] [phone] Adrianne Ramon MD [facility] DR HEMATOLOGY AND ONCOLOGY [place], [place] [phone] Yael Merlos, KARLA [facility] DR HEMATOLOGY [place] [address] 10/03/2023 10:30 AM EDT Infusion Hematology Oncology at [address] [phone] 10/10/2023 2:45 PM EDT Appointment XRay at [address] [place] [phone] Micha Givens Jr., MD [facility] HEMATOLOGY [place] [address] 10/10/2023 3:00 PM EDT Appointment Non-[place]vasive [place] [phone] 10/10/2023 3:30 PM EDT Appointment [place] [address] 10/11/2023 8:30 AM EDT Infusion Hematology Oncology at [address] [phone] documented as of this encounter Visit Diagnoses Not on filedocumented in this encounter Care Teams Piece Cutter Relationship Specialty Start Date End Date Frederick Meade MD [address] [place] [address] PCP - General Family Medicine 11/29/17 documented as of this encounter
--- OUTSIDE RECORDS SUMMARY | 2023-10-03 03:12 | XMS_ITS | Encounter Summary ---
Author Organization [facility] [place] [address] Care Team Providers Care Plant Ecologist Name Role Phone Frederick Meade MD Primary Care Provider [phone] Encounter Details Date Type Department Care Team [...] 10:00 AM EDT Office Visit Hematology/Oncology at [address] [phone] Adrianne Ramon MD [facility] DR [place] [address] Yael Merlos APRN [facility] [address] [place] [address] 10/03/2023 10:30 AM EDT Infusion Hematology Oncology at [address] [phone] 10/10/2023 2:45 PM EDT Appointment XRay at [address] [place] [address] Micha Givens Jr., MD [facility] [place] [address] 10/10/2023 3:00 PM EDT Appointment Non-[place] [phone] 10/10/2023 3:30 PM EDT Appoint[place] [address] 10/11/2023 8:30 AM EDT Infusion Hematology Oncology at [address] [phone] documented as of this encounter Visit Diagnoses Not on filedocumented in this encounter Care Teams Plant Ecologist Relationship Specialty Start Date End Date Frederick Meade MD [address] [facility] 1 [place] [address] PCP - General Family Medicine 11/29/17 documented as of this encounter
--- OUTSIDE RECORDS SUMMARY | 2023-10-03 03:13 | XMS_ITS | Encounter Summary ---
Author Organization [facility] [address] Care Team Providers Care Multiple Cut Off Saw Operator Name Role Phone Frederick Meade MD Primary Care Provider [phone] Encounter Details Date Type Department Care Team (Latest Contact Info) Description 03/06/2023 7:23 AM EST - 03/06/2023 7:51 AM EST Hospital Encounter [place] [address] Non-Hodgkin lymphoma of lymph nodes of multiple [...] Chewable Take 325 mg by mouth daily. tamsulosin (Flomax) 0.4 [...] 10:00 AM EDT Office Visit Hematology/Oncology at [address] [address] Adrianne Ramon MD [facility] HEMATOLOGY [place] [address] Yael Merlos APRN [facility] HEMATOLOGY [place] [address] 10/03/2023 10:30 AM EDT Infusion Hematology Oncology at [address] [address] 10/10/2023 2:45 PM EDT Appointment XRay at [address] [place] [address] Micha Givens Jr., MD [facility] HEMATOLOGY [place] [address] 10/10/2023 3:00 PM EDT Appointment Non-[place] [address] 10/10/2023 3:30 PM EDT [place] [address] 10/11/2023 8:30 AM EDT Infusion Hematology Oncology at [address] [address] Scheduled Orders Name Type Priority Associated Diagnoses [...] 7:45 AM EST) Neutrophil % 56.0 % [facility] Neutrophil Absolute 3.23 1.70 - 6.10 x10(3)/mc L [facility] Lymph % 12.1 % [facility] Lymphocytes Abs 0.7(L) 0.9 - 3.2 x10(3)/mc L [facility] Monocyte % 20.5 % [facility] Monocyte Abs 1.2(H) 0.3 - 0.9 x10(3)/mc L [facility] Eos % 10.2 % [facility] Eosinophils Abs 0.6(H) 0.0 - 0.4 x10(3)/mc L [facility] Basophil % 1.0 % [facility] Baso Absolute 0.1 0.0 - 0.1 x10(3)/mc L [facility] Immature Gran % 0.20 % [facility] Comment: Immature granulocytes(IG's)percentage and absolute count will include metamyelocytes, myelocytes, and promyelocytes. Blood smears from CBCs yielding IG's will be scanned manually for concordance. If this scan disagrees with the automated IG or if promyelocytes are noted, a manual differential will be performed. Immature Gran Absolute 0.01 0.00 - 0.04 x10(3)/mc L [facility] Blood 03/06/2023 7:45 AM EST 03/06/2023 8:00 AM EST Narrative Resulting Agency Comment Spec In Lab Adrianne Ramon MD HEMATOLOGY ORDER DUONG [facility] [place] [address] * (ABNORMAL) Hemogram (03/06/2023 7:45 AM EST) White Blood Cell 5.8 4.0 - 9.5 x10(3)/mc L [facility] Red Blood Cell 3.67(L) 4.58 - 5.54 x10(6)/ L [facility] Hemoglobin 11.3(L) 13.7 - 16.5 g/dL [facility] Hematocrit 34.5(L) 40.5 - 48.5 % [facility] Mean Cell Volume 94.0(H) 82.9 - 93.1 fL [facility] Mean Cell Hemoglobin 30.8 27.5 - 32.1 pg [facility] Mean Cell Hemoglobin Concentration 32.8 32.0 - 35.7 g/dL [facility] Platelet 211 145 - 357 x10(3)/mc L [facility] RDW Standard Deviation 54.8(H) 36.0 - 45.0 fL [facility] RDW coefficient of variation 15.9(H) 11.4 - 13.8 % [facility] Mean Platelet Volume 10.2 7.6 - 12.9 fL [facility] NRBC% auto 0.0 % [facility] NRBC Absolute 0.000 0.000 - 0.000 x10(3)/mc L [facility] Blood 03/06/2023 7:45 AM EST 03/06/2023 8:00 AM EST Narrative Resulting Agency Comment Spec In Lab Adrianne Ramon MD HEMATOLOGY ORDER DUONG [facility] [address] [place] [address] * (ABNORMAL) Comprehensive metabolic panel (non-fasting) (03/06/2023 7:45 AM EST) Glucose 133 65 - 199 mg/dL [facility] Comment:Diabetes: >=200 mg/d L plus symptoms Blood Urea Nitrogen 12 10 - 20 mg/dL [facility] Creatinine 0.94 0.80 - 1.50 mg/dL [facility] Sodium 143 135 - 145 mmol/L [facility] Potassium 3.7 3.5 - 5.0 mmol/L [facility] Comment: Please note: ??Patients with WBC >100,000 may have falsely elevated Potassium levels. ??For accurate Potassium quantification in these patients send serum separator tube (gold top) for subsequent determinations. ??Contact the Clinical Chemistry Laboratory if there are any questions. Chloride 108(H) 98 - 107 mmol/L [facility] Carbon Dioxide 23 22 - 31 mmol/L [facility] Anion Gap 12 5 - 15 mmol/L [facility] Calcium 9.6 8.5 - 10.5 mg/dL [facility] Protein, Total 6.4 6.1 - 8.0 g/dL [facility] Albumin 4.1 3.2 - 5.2 g/dL [facility] Aspartate Aminotransferase 22 0 - 39 unit/L [facility] Alanine Aminotransferase 18 0 - 55 unit/L [facility] Alkaline Phosphatase 103 40 - 130 unit/L [facility] Bilirubin, Total 0.2 0.2 - 1.3 mg/dL [facility] Est Glomerular Filtration Rate 85 >=60 mL/min/1. 73 m?? [facility] Comment: This patient's estimated GFR [...] MD CHEMISTRY ORDERA BLES Performing Organization Address [facility] Co de Phone Number [facility] [place] [address] * (ABNORMAL) Immunoglobulins, Quantitative (03/06/2023 7:45 AM EST) Immunoglobulin G 572(L) 700 - 1,600 mg/dL [facility] Comment: Pediatric Reference Intervals obtained from the Caliper Reference Interval project. http://www.[employer].ca/caliperproject/index.html IgA 118 70 - 400 mg/dL [facility] IgM 123 40 - 230 mg/dL [facility] Blood 03/06/2023 7:45 AM EST 03/06/2023 8:00 AM EST Narrative Resulting Agency Comment Spec In Lab Adrianne Ramon MD CHEMISTRY ORDERA BLES Performing Organization Address [facility] Co de Phone Number [facility] [place] [address] * Lactate Dehydrogenase (03/06/2023 7:45 AM EST) Lactate Dehydrogenase 198 110 - 220 unit/L [facility] Blood 03/06/2023 7:45 AM EST 03/06/2023 8:00 AM EST Narrative Resulting Agency Comment Spec In Lab Adrianne Ramon MD CHEMISTRY ORDERA BLES Performing Organization Address [facility]/ZIP Co de Phone Number [facility] [place] [address] * Uric acid (03/06/2023 7:45 AM EST) Uric Acid 5.5 3.5 - 8.5 mg/dL [facility] Blood 03/06/2023 7:45 AM EST 03/06/2023 8:00 AM EST Narrative Resulting Agency Comment Spec In Lab Adrianne Ramon MD CHEMISTRY ORDERA BLES [facility] [place] [address] documented in this encounter Visit Diagnoses Diagnosis [...] Sun03/06/23 at 0740, Until Sun03/07/23 at 0433, Order Worker, Routine Given 03/06/2023 7:50 AM EST 20 mLs documented in this encounter Care Teams Multiple Cut Off Saw Operator Relationship Specialty Start Date End Date Frederick Meade MD [address] [place] [address] PCP - General Family Medicine 11/29/17 documented as of this encounter
--- OUTSIDE RECORDS SUMMARY | 2023-10-03 03:13 | XMS_ITS | Encounter Summary ---
Author Organization [facility] [place] [address] Care Team Providers Care Under Cutter Name Role Phone Frederick Meade MD Primary Care Provider [phone] Reason for Visit * Diagnostic Test (Routine) - Closed Specialty Diagnoses / Procedures Referred By Contac t Referred To Contact Radiology Diagnoses Diffuse large B-cell lymphoma of lymph nodes of multiple regions Skin nodule Procedures NM PET CT Standard Plus Extremities and Head Adrianne Ramon MD [facility] [address] [place] [address] [place] [address] Referral ID Status Reason Start Date Expiration Date V isits Requested Visits Authorized [id number] Closed Specialty Service Requested 08/22/2023 02/21/2025 1 1 Encounter Details Date Type Department Care Team (Late st Contact Info) Description 09/06/2023 1:00 PM EDT - 09/06/2023 11:59 PM EDT Hospital Encounter [place] [address] Adrianne Ramon MD [facility] [address] [place] [address] Discharge Disposition: Home Social History [...] 10:00 AM EDT Office Visit Hematology/Oncology at [address] [address] Adrianne Ramon MD [facility] DR [place] [address] Yael Merlos APRN [facility] [address] [place] [address] 10/03/2023 10:30 AM EDT Infusion Hematology Oncology at [address] [address] 10/10/2023 2:45 PM EDT Appointment XRay at [address] [place] [address] Micha Givens Jr., MD [facility] [place] [address] 10/10/2023 3:00 PM EDT Appointment Non-[place] [address] 10/10/2023 3:30 PM EDT Appointment [place] [address] 10/11/2023 8:30 AM EDT Infusion Hematology Oncology at [address] [address] documented as of this encounter Procedures Procedure [...] Glucose, POC 98 65 - 199 mg/dL [facility] Comment: Supplemental ranges: <140 mg/dL before meals <180 mg/dL all other times of the day Blood 09/06/2023 1:06 PM EDT 09/06/2023 1:06 PM EDT Adrianne Ramon MD POINT OF CARE TE ST ORDERABLES [facility] [place] [address] * POCT Glucose (09/06/2023 10:41 AM EDT) Glucose, POC 142 65 - 199 mg/dL [facility] Comment: Supplemental ranges: <140 mg/dL before meals <180 mg/dL all other times of the day Blood 09/06/2023 10:4 1 AM EDT 09/06/2023 10:41 AM EDT Adrianne Ramon MD POINT OF CARE TE ST ORDERABLES [facility] [place] [address] documented in this encounter Visit Diagnoses Not on filedocumented in this encounter Care Teams Under Cutter Relationship Specialty Start Date End Date Frederick Meade MD [address] [place] [address] PCP - General Family Medicine 11/29/17 documented as of this encounter
--- OUTSIDE RECORDS SUMMARY | 2023-10-03 03:13 | XMS_ITS | Encounter Summary ---
[place] [address] Care Team Providers Care Patient Admitting Clerk Name Role Phone Frederick Meade MD Primary Care Provider [phone] [phone] Reason for Referral * Diagnostic Test (Routine) - Closed Specialty Diagnoses / Procedures Referred By Contac t Referred To Contact Radiology Diagnoses Diffuse large B-cell lymphoma of lymph nodes of multiple regions Skin nodule Procedures NM PET CT Standard Plus Extremities and Head Adrianne Ramon MD [facility] DR H[place] [address] [place] [address] Referral ID Status Reason Start Date Expiration Date V isits Requested Visits Authorized [id number] Closed Specialty Service Requested 08/22/2023 02/21/2025 1 1 Reason for Visit * Diagnostic Test (Routine) - Closed Specialty Diagnoses / Procedures Referred By Contac t Referred To Contact Radiology Diagnoses Diffuse large B-cell lymphoma of lymph nodes of multiple regions Skin nodule Procedures NM PET CT Standard Plus Extremities and Head Adrianne Ramon MD [facility] DR HEM[place]OLOG[place] [address] [place] [address] Referral ID Status Reason Start Date Expiration Date V isits Requested Visits Authorized [id number] Closed Specialty Service Requested 08/22/2023 02/21/2025 1 1 Encounter Details Date Type Department Care Team (Jaciel teixeira Contact Info) Description 09/06/2023 12:59 PM EDT Hospital Encounter [place] [address] Adrianne Ramon MD [facility] DR [place] [address] Diffuse large B-cell lymphoma of lymph nodes [...] 10:00 AM EDT Office Visit Hematology/Oncology at [address] [address] Adrianne Ramon MD [facility] DR HEMATOLOGY [place] [address] Yael Merlos APRN [facility] [place] [address] 10/03/2023 10:30 AM EDT Infusion Hematology Oncology at [address] [address] 10/10/2023 2:45 PM EDT Appointment XRay at [address] [place] [address] Micha Givens Jr., MD [facility] HEMATOLOGY [place] [address] 10/10/2023 3:00 PM EDT Appointment Non-[place]vasive [place] [address] 10/10/2023 3:30 PM EDT [place]ointment [place] [address] 10/11/2023 8:30 AM EDT Infusion Hematology Oncology at [address] [address] documented as of this encounter Procedures Procedure Name Priority Date/Time Associated Diagnosis Comments NM PET CT STANDARD PLUS EXTREMITIES AND HEAD Routine 09/06/2023 2:45 PM EDT Diffuse large B-cell lymphoma of lymph nodes of multiple regions Skin nodule documented in this encounter Results * NM PET CT Standard Plus Extremities and Head (09/06/2023 2:45 PM EDT) WORKSTATION ID [id number] [facility] Anatomical Region Laterality Modality Positron Emissio n [...] who have questions please contact the health animal caregiver that requested your imaging first. ? Electronically signed by: Rohan Henley MD, [facility] ([phone]), at 09/10/2023 11:18 AM Narrative 09/10/2023 11:18 [...] unspecified. TECHNIQUE: Procedure: Following IV injection of 58-pvhzuq-5-deoxyglucose (FDG) a standard uptake of approximately 60 [...] unspecified. TECHNIQUE: Procedure: Following IV injection of 62-yxhldm-2-deoxyglucose(FDG) a standard uptake of approximately 60 minutes, [...] patients who have questions please contactthe health animal caregiver that requested your imaging first. Electronically signed by: Rohan Henley MD, [facility]([phone]), at 09/10/2023 11:18 AM Adrianne Ramon MD [...] Arm documented in this encounter Care Teams Patient Admitting Clerk Relationship Specialty Start Date End Date Frederick Meade MD [address] [place] [address] PCP - General Family Medicine 11/29/17 documented as of this encounter
--- OUTSIDE RECORDS SUMMARY | 2023-10-03 03:13 | XMS_ITS | Encounter Summary ---
Author Organization [facility] Address [facility] [place] [address] Care Team Providers Care Sales And Service Associate Name Role Phone Frederick Meade MD Primary Care Provider [phone] [phone] Encounter Details Date Type Department Care Team (Late st Contact Info) Description 03/14/2023 11:30 AM EST Office Visit Hematology/Oncology at [address] [address] [facility] DR HEMATOLOGY [place] [address] [facility] [address] HEMATOLOGY [place] [address] Diffuse large B-cell lymphoma of lymph nodes [...] - 03/14/2023 11:30 AM EST Hematology Clinic [facility] [place] [address] HEMATOLOGY PATIENT EVALUATION PROBLEM LIST: Patient Active [...] ~2 weeks ago saw [facility] in [facility] and when to [facility]. [place] beds [place] [facility] [place] - unclear cause. - last COLO at [facility] was 01/17/2012. INTERIM HISTORY OF [...] and needle of cervical LN. FISH from [place] No MYCrearrangement and no fusion of [...] only 1 biologic. Son Cheo Freire. Enjoys [employer], movies, race car, cards. Grokker. 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 Not a . ETOH: 1-3 beers per week Smoking: Quit 1985. Approximately 27-obos-tqqs history Vaping or electronic cigarettes: denies Chewing [...] is a delightful 72-year old male in [facility]. He is accompanied to the clinic [...] and BCL-2 protein (Double Expressor.) Flow cytometry ([id number]) supports this interpretation. FISH from [place] No MYC rearrangement and no fusion of MYC and IGH was observed, CD3 (SP7, [employer]) Background T-cells CD20 (L26, [place]) diffusely positive in Neoplastic B-cells PAX-5 (1EW, [employer]) diffusely positive in Neoplastic B-cells CD10 (SP67, [place]) Negative BCL-6 (G/191E/A8, [place]) Positive MUM-1 (MUM1p, [place]) Positive Myc (Y69, [employer]) Positive BCL-2 Oncoprotein (124, [place]) Positive Ki67 (MIB-1) (K2, [employer]) Greater than 95% of cells in cycle Cyclin D1(SP4-R, [place]) Negative SAPPHIRE JOSE ([id number], [employer]) Negative. DIAGNOSTICS: 01/25/23 ECHO after C#5 [...] undergo investigation with ultrasound. CT CAP at [facility], report and images have been requested. [...] LVEF at 50-55%. --asymptomatic --repeat echo at [facility] 1 year post completion of [...] to Feb 2028. Send PET images to [facility] for future comparison w/ surveillance CT [...] 10:00 AM EDT Office Visit Hematology/Oncology at [address] [address] [facility] HEMATOLOGY [place] [address] [facility] HEMATOLOGY [place] [address] 10/03/2023 10:30 AM EDT Infusion Hematology Oncology at [address] [address] 10/10/2023 2:45 PM EDT Appointment XRay at [address] [place] [address] Micha Givens Jr., MD [facility] HEMATOLOGY AND [place] [address] 10/10/2023 3:00 PM EDT Appointment Non-Invasive [place] [address] 10/10/2023 3:30 PM EDT [place]ointment [place] [address] 10/11/2023 8:30 AM EDT Infusion Hematology Oncology at [address] [address] documented as of this encounter Visit Diagnoses Diagnosis Diffuse large B-cell lymphoma of lymph nodes of multiple regions Iron deficiency anemia, unspecified iron deficiency anemia type documented in this encounter Care Teams Sales And Service Associate Relationship Specialty Start Date End Date Frederick Meade MD [address] [place] [address] PCP - General Family Medicine 11/29/17 documented as of this encounter
--- OUTSIDE RECORDS SUMMARY | 2023-10-03 03:13 | XMS_ITS | Encounter Summary ---
[place] [address] Care Team Providers Care Lift Builder Whole Name Role Phone Frederick Meade MD Primary Care Provider [phone] Reason for Referral * Diagnostic Test (Routine) - Closed Specialty Diagnoses / Procedures Referred By Contac t Referred To Contact Radiology Diagnoses Diffuse large B-cell lymphoma of lymph nodes of multiple regions Procedures IR Mediport Removal Yael Merlos PIPE ORGAN BUILDER [facility] DR [place] [address] [facility] [place] [address] Referral ID Status Reason Start Date Expiration Date V isits Requested Visits Authorized [id number] Closed Specialty Service Requested 03/15/2023 09/12/2024 1 1 Reason for Visit * Diagnostic Test (Routine) - Closed Specialty Diagnoses / Procedures Referred By Contac t Referred To Contact Radiology Diagnoses Diffuse large B-cell lymphoma of lymph nodes of multiple regions Procedures IR Mediport Removal Yael Merlos PIPE ORGAN BUILDER [facility] [place] [address] [facility] [place] [address] Referral ID Status Reason Start Date Expiration Date V isits Requested Visits Authorized [id number] Closed Specialty Service Requested 03/15/2023 09/12/2024 1 1 Encounter Details Date Type Department Care Team (Latest Contact Info) Description 03/29/2023 12:51 PM EST - 03/29/2023 11:59 PM EST Hospital Encounter Radiology at [facility] [place] [address] Yael Merlos APRN [facility] DR [place] [address] Diffuse large B-cell lymphoma of lymph nodes [...] Zacarias RN - 03/29/2023 2:08 PM EST [facility] Vascular and Interventional Radiology Discharge Instructions for [...] not peel them off. There may be [place] (skin glue) also, allow this to flake [...] is during regular office hours, please call [phone]. If it is after regular office hours, or on weekends or holidays, please call [phone] and ask to speak to the Fixing Carpenter pig iron loader for Interventional Radiology. You have received medication [...] PM EST [facility] NUR[facility] DATABASE Name: Cheo Ferire Date of : 1950 AGE: 72 y.o. Address: [address] [place] [address] Phone: [phone] (home) Mobile: Telephone Information: Referring Provider: Yael Merlos REASON FOR VISIT: Order Questions Answers Where will study be performed? [facility] Radiology [120] Reason for exam and clinical [...] 10:00 AM EDT Office Visit Hematology/Oncology at [address] [address] Adrianne Ramon MD [facility] [place] [address] Yael Merlos, PIPE ORGAN BUILDER [facility] [place] [address] 10/03/2023 10:30 AM EDT Infusion Hematology Oncology at [address] [address] 10/10/2023 2:45 PM EDT Appointment XRay at [address] [place] [address] Micha Givens Jr., MD [facility] HEMATOLOGY [place] [address] 10/10/2023 3:00 PM EDT Appointment Non-[place] [address] 10/10/2023 3:30 PM EDT Appointment [place] [address] 10/11/2023 8:30 AM EDT Infusion Hematology Oncology at [address] [address] documented as of this encounter Procedures Procedure [...] port explant Indication: Lymphoma, therapy complete, discontinue half-way central venous access for chemotherapy Pre-procedure: Informed [...] venous port with all components accounted for. wash operator: ??Chalo Crews PA-C Attending of record: Ole Arvizu MD 03/29/2023 Yael Merlos PIPE ORGAN BUILDER IMG IR ORDERABLES documented in this encounter [...] section) documented in this encounter Care Teams Lift Builder Whole Relationship Specialty Start Date End Date Frederick Meade MD [address] [place] [address] PCP - General Family Medicine 11/29/17 documented as of this encounter
--- OUTSIDE RECORDS SUMMARY | 2023-10-03 03:13 | XMS_ITS | Encounter Summary ---
Author Organization [facility] Address [facility] [place] [address] Care Team Providers Care Reimbursement Rep Name Role Phone Frederick Meade MD Primary Care Provider [phone] [phone] Reason for Visit * Reason Comments Follow-up Chemotherapy Encounter Details Date Type Department Care Team (Late st Contact Info) Description 01/31/2023 8:30 AM EST Office Visit Hematology/Oncology at [address] [address] Yael Merlos, DIRECTOR OF PUBLIC SAFETY [facility] [place] [address] Diffuse large B-cell lymphoma of lymph nodes [...] this encounter Progress Notes * Yael Merlos, DIRECTOR OF PUBLIC SAFETY - 01/31/2023 8:30 AM EST Hematology Clinic [facility] [place] [address] HEMATOLOGY PATIENT EVALUATION PROBLEM LIST: Patient Active [...] in [facility] and when to [facility]. No beds [facility] sent to [facility] [...] unclear cause. - last COLO at [facility] was 01/17/2012. INTERIM HISTORY OF [...] and needle of cervical LN. FISH from [place] No MYCrearrangement and no fusion of MYC [...] Freire. Enjoys reads, movies, race car, cards. [employer]. 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 Not a . ETOH: 1-3 beers per week Smoking: Quit 1985. Approximately 39-vwdt-veoa history Vaping or electronic cigarettes: denies Chewing [...] is a delightful 72-year old male in [facility]. He is accompanied to the clinic [...] and BCL-2 protein (Double Expressor.) Flow cytometry ([id number]) supports this interpretation. FISH from [place] No MYC rearrangement and no fusion of MYC and IGH was observed, CD3 (SP7, Thermo Scientific) Background T-cells CD20 (L26, [place]) diffusely positive in Neoplastic B-cells PAX-5 (1EW, Leica) diffusely positive in Neoplastic B-cells CD10 (SP67, [place]) Negative BCL-6 (G/191E/A8, [place]) Positive MUM-1 (MUM1p, Dako) Positive Myc (Y69, Abcam) Positive BCL-2 Oncoprotein (124, [place]) Positive Ki67 (MIB-1) (K2, Leica) Greater than 95% of cells in cycle Cyclin D1(SP4-R, [place]) Negative SAPPHIRE JOSE ([id number], Leica) Negative. DIAGNOSTICS: 01/25/23 ECHO after C#5 [...] undergo investigation with ultrasound. CT CAP at [facility], report and images have been [...] at 50-55%. --asymptomatic --repeat echo at [facility] 1 year post completion of therapy Suspected [...] and counseling as appropriate. Yael Merlos, MSN, DIRECTOR OF PUBLIC SAFETY Nurse Practitioner Section of Hematology Copy Frederick Meade MD documented in this encounter Plan of Treatment Upcoming Encounters Date Type Department Care Team (Late st Contact Info) Description 10/03/2023 10:00 AM EDT Office Visit Hematology/Oncology at [address] [address] Adrianne Ramon MD [facility] HEMATOLOGY [place] [address] Yael Merlos APRN [facility] [place] [address] 10/03/2023 10:30 AM EDT Infusion Hematology Oncology at [address] [address] 10/10/2023 2:45 PM EDT Appointment XRay at [address] [place] [address] Micha Givens Jr., MD [facility] [place] [address] 10/10/2023 3:00 PM EDT Appointment Non-Invasive [place] [address] 10/10/2023 3:30 PM EDT Appointment [place] [address] 10/11/2023 8:30 AM EDT Infusion Hematology Oncology at [address] [phone] documented as of this encounter [...] difficile documented in this encounter Care Teams Reimbursement Rep Relationship Specialty Start Date End Date Frederick Meade MD [address] [place] [address] PCP - General Family Medicine 11/29/17 documented as of this encounter
--- OUTSIDE RECORDS SUMMARY | 2023-10-03 03:13 | XMS_ITS | Encounter Summary ---
Author Organization [facility] [place] [address] Care Team Providers Care Plush Dresser Name Role Phone Frederick Meade MD Primary Care Provider +1 [phone] Reason for Visit * Reason Comments Chemotherapy [id number] * Treatment/Therapy Plan Authorization (Routine) - Closed [...] TC CYCLOPHOSPHAMIDE, 100MG (CYTOXAN) Adrianne Ramon MD [facility] DR [place] [address] [facility] [address] [place] [address] Referral ID Status Reason Start Date Expiration Date Visits Re quested Visits Authorized [id number] Closed 10/11/2022 10/11/2023 1 100 Encounter Details Date Type Department Care Team (Late st Contact Info) Description 01/10/2023 9:00 AM EST Infusion Hematology Oncology at [address] [phone] Diffuse large B-cell lymphoma of [...] treatment. OBJECTIVE LAB DATA: completed today at [facility] Pre administration: Chemotherapy [...] 10:00 AM EDT Office Visit Hematology/Oncology at [address] [address] Adrianne Ramon MD [facility] DR [place] [address] Yael Merlos APRN [facility] DR [place] [address] 10/03/2023 10:30 AM EDT Infusion Hematology Oncology at [address] [address] 10/10/2023 2:45 PM EDT Appointment XRay at [address] [place] [address] Micha Givens Jr., MD [facility] HEMATOLOGY [place] [address] 10/10/2023 3:00 PM EDT Appointment Non-Invasive [place] [phone] 10/10/2023 3:30 PM EDT Appointment [place] [address] 10/11/2023 8:30 AM EDT Infusion Hematology Oncology at [address] [phone] documented as of this encounter [...] 2 minutes is a recommendation from the diamond selector. Administer prior to chemotherapy., Routine Given 01/10/2023 [...] Job Aid: Adult Flushing & Catheter Care (4729) job aid for additional information regarding guidelines [...] Job Aid: Adult Flushing & Catheter Care (0625) job aid for additional information regarding guidelines [...] mL/hr documented in this encounter Care Teams Plush Dresser Relationship Specialty Start Date End Date Frederick Meade MD [address] [place] [address] PCP - General Family Medicine 11/29/17 documented as of this encounter
--- OUTSIDE RECORDS SUMMARY | 2023-10-03 03:13 | XMS_ITS | Encounter Summary ---
Author Organization [facility] [place] [address] Care Team Providers Care Rn Imaging Name Role Phone Frederick Meade MD Primary Care Provider [phone] [phone] Encounter Details Date Type Department Care Team [...] 10:00 AM EDT Office Visit Hematology/Oncology at [address] [phone] Adrianne Ramon MD [facility] DR HEMATOLOGY [place] [address] Yael Merlos APRN [facility] DR HEMATOLOGY [place] [address] 10/03/2023 10:30 AM EDT Infusion Hematology Oncology at [address] [phone] 10/10/2023 2:45 PM EDT Appointment XRay at [address] [place] [address] Micha Givens Jr., MD [facility] HEMATOLOGY [place] [address] 10/10/2023 3:00 PM EDT Appointment Non-[place] [phone] 10/10/2023 3:30 PM EDT Appointment [place] [address] 10/11/2023 8:30 AM EDT Infusion Hematology Oncology at [address] [phone] documented as of this encounter Visit Diagnoses Not on filedocumented in this encounter Care Teams Rn Imaging Relationship Specialty Start Date End Date Frederick Meade MD [address] [facility] 1 [place] [address] PCP - General Family Medicine 11/29/17 documented as of this encounter
--- OUTSIDE RECORDS SUMMARY | 2023-10-03 03:13 | XMS_ITS | Encounter Summary ---
[place] [address] Care Team Providers Care License Issuer Name Role Phone Frederick Meade MD Primary Care Provider [phone] [phone] Encounter Details Date Type Department Care Team (Late st Contact Info) Description 03/15/2023 Orders Only Radiology at [facility] [place] [address] Aaron Husain MD [facility] [place] [address] Social History Tobacco Use Types Packs/Day Years [...] IR Mediport Placement 10/17/2022 Gail Jha PA [facility] INTERVENTIONL RAD TONSILLECTOMY 1958 Medications: Current Outpatient [...] Not on file Occupational History 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, 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 Tobacco Use Smoking status: Former Packs/day: [...] AM EDT Office Visit Hematology/Oncology at [address] [phone] Adrianne Ramon MD [facility] DR [place] [address] Yael Merlos, KARLA [facility] DR [place] [address] 10/03/2023 10:30 AM EDT Infusion Hematology Oncology at [address] [phone] 10/10/2023 2:45 PM EDT Appointment XRay at [address] [place] [address] Micha Givens Jr., MD [facility] [place] [address] 10/10/2023 3:00 PM EDT Appointment Non-Invasive [place] [phone] 10/10/2023 3:30 PM EDT Appointment [place] [address] 10/11/2023 8:30 AM EDT Infusion Hematology Oncology at [address] [phone] documented as of this encounter Visit Diagnoses Not on filedocumented in this encounter Care Teams License Issuer Relationship Specialty Start Date End Date Frederick Meade MD [address] [place] [address] PCP - General Family Medicine 11/29/17 documented as of this encounter
--- OUTSIDE RECORDS SUMMARY | 2023-10-03 03:13 | XMS_ITS | Encounter Summary ---
Author Organization [facility] [place] [address] Care Team Providers Care Development Mgr Name Role Phone Frederick Meade MD Primary Care Provider [phone] [phone] Encounter Details Date Type Department Care Team [...] 10:00 AM EDT Office Visit Hematology/Oncology at [address] [phone] Adrianne Ramon MD [facility] [place] [address] Yael Merlos APRN [facility] [place] [address] 10/03/2023 10:30 AM EDT Infusion Hematology Oncology at [address] [phone] 10/10/2023 2:45 PM EDT Appointment XRay at [address] [place] [address] Micha Givens Jr., MD [facility] [place] [address] 10/10/2023 3:00 PM EDT Appointment Non-[place]vasive [place] [phone] 10/10/2023 3:30 PM EDT Appoint[place] [address] 10/11/2023 8:30 AM EDT Infusion Hematology Oncology at [address] [phone] documented as of this encounter Visit Diagnoses Not on filedocumented in this encounter Care Teams Development Mgr Relationship Specialty Start Date End Date Frederick Meade MD [address] [facility] 1 [place] [address] PCP - General Family Medicine 11/29/17 documented as of this encounter
--- OUTSIDE RECORDS SUMMARY | 2023-10-03 03:13 | XMS_ITS | Encounter Summary ---
Author Organization [place] [address] Care Team Providers Care Forging Press Setter Up Name Role Phone Frederick Meade MD Primary Care Provider +1 [phone] Encounter Details Date Type Department Care Team [...] Office Visit Hematology/Oncology at [address] [phone] Adrianne Ramon MD [facility] DR [place] [address] Yael Merlos APRN [facility] DR [place] [address] 10/03/2023 10:30 AM EDT Infusion Hematology Oncology at [address] [phone] 10/10/2023 2:45 PM EDT Appointment XRay at [address] [place] [address] Micha Givens Jr., MD [facility] [place] [address] 10/10/2023 3:00 PM EDT Appointment Non-[place]vasive [place] [phone] 10/10/2023 3:30 PM EDT [place]oint[place] [address] 10/11/2023 8:30 AM EDT Infusion Hematology Oncology at [address] [phone] documented as of this encounter Visit Diagnoses Not on filedocumented in this encounter Care Teams Forging Press Setter Up Relationship Specialty Start Date End Date Frederick Meade MD [address] [facility] 1 [place] [address] PCP - General Family Medicine 11/29/17 documented as of this encounter
--- OUTSIDE RECORDS SUMMARY | 2023-10-03 03:13 | XMS_ITS | Encounter Summary ---
[place] [address] Care Team Providers Care Malthouse Laborer Name Role Phone Frederick Meade MD Primary Care Provider +1 -[phone] Reason for Referral * Diagnostic Test (Routine) - Authorized Specialty Diagnoses / Procedures Referred By Contac t Referred To Contact Radiology Diagnoses Diffuse large B-cell lymphoma of lymph nodes of multiple regions Procedures CT Neck Soft Tissue w Contrast (Generic) Yael Merlos OIL RIGGER [facility] DR [place] [address] Referral ID Status Reason Start Date Expiration Date Visits Requested Visits Authorized [id number] Authorized Specialty Service Requested 06/13/2023 12/12/2024 1 1 * Diagnostic Test (Routine) - Authorized Specialty Diagnoses / Procedures Referred By Contac t Referred To Contact Radiology Diagnoses Diffuse large B-cell lymphoma of lymph nodes of multiple regions Procedures CT Chest Abdomen Pelvis w Contrast (Generic) Yael Merlos APRN [facility] DR [place] [address] Referral ID Status Reason Start Date Expiration Date Visits Requested Visits Authorized [id number] Authorized Specialty Service Requested 06/13/2023 12/12/2024 1 1 Reason for Visit * Reason Comments Follow-up Encounter Details Date Type Department Care Team (Late st Contact Info) Description 06/13/2023 11:00 AM EDT Office Visit Hematology/Oncology at [address] [phone] Adrianne Ramon MD [facility] DR [place] [address] Yael Merlos APRN [facility] [place] [address] Diffuse large B-cell lymphoma of lymph nodes [...] No 10/11/2022 Housing Stability Vital Sign Answer Willina e Recorded In the last 12 months, [...] this encounter Progress Notes * Yael Merlos, OIL RIGGER - 06/13/2023 11:00 AM EDT Hematology Clinic [facility] [place] [address] HEMATOLOGY PATIENT EVALUATION PROBLEM LIST: Patient Active [...] to consultation, he saw [facility] and when to [facility]. No beds so sent to [facility] for [address] [...] unclear cause. - last COLO at [facility] was 01/17/2012. INTERIM HISTORY OF PRESENT [...] using his bike. They are opening their hughes again inviting in close friends and family and beginning to extends back out in their social hughes which is quite reasonable at this point. No new health-related concerns. 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 6 mos of adjuvant Lupron. Total dose 79.2 Gy completed 01/26/15 09/29/22 Large B Cell lymphoma - biopsy of tongue and needle of cervical LN. FISH from [place] No MYCrearrangement and no fusion of MYC [...] only 1 biologic. Son Cheo Freire. Enjoys [employer], movies, race car, [employer]. [employer]. 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 Not a . ETOH: 1-3 beers per week Smoking: Quit 1985. Approximately 39-nmbi-itjd history Vaping or electronic cigarettes: denies Chewing [...] is a delightful 73-year old male in [facility]. He is accompanied to the clinic [...] and BCL-2 protein (Double Expressor.) Flow cytometry ([id number]) supports this interpretation. FISH from [place] No MYC rearrangement and no fusion of MYC and IGH was observed, CD3 (SP7, Thermo Scientific) Background T-cells CD20 (L26, [place]) diffusely positive in Neoplastic B-cells PAX-5 (1EW, Leica) diffusely positive in Neoplastic B-cells CD10 (SP67, [place]) Negative BCL-6 (G/191E/A8, [place]) Positive MUM-1 (MUM1p, Dako) Positive Myc (Y69, Abcam) Positive BCL-2 Oncoprotein (124, [place]) Positive Ki67 (MIB-1) (K2, Leica) Greater than 95% of cells in cycle Cyclin D1(SP4-R, [place]) Negative SAPPHIRE JOSE ([id number], Leica) Negative. DIAGNOSTICS: 01/25/23 ECHO after C#5 [...] undergo investigation with ultrasound. CT CAP at [facility], report and images have been [...] at 50-55%. --asymptomatic --repeat echo at [facility] 1 year post completion of therapy [...] and counseling as appropriate. Yael Merlos, MSN, OIL RIGGER Nurse Practitioner Section of Hematology Copy Frederick Meade MD documented in this encounter Plan of Treatment Upcoming Encounters Date Type Department Care Team (Late st Contact Info) Description 10/03/2023 10:00 AM EDT Office Visit Hematology/Oncology at [address] [phone] Adrianne Ramon MD [facility] DR [place] [address] Yael Merlos APRN [facility] DR [place] [address] 10/03/2023 10:30 AM EDT Infusion Hematology Oncology at [address] [address] 10/10/2023 2:45 PM EDT Appointment XRay at [address] [place] [address] Micha Givens Jr., MD [facility] [place] [address] 10/10/2023 3:00 PM EDT Appointment Non-[place]vasive [place] [phone] 10/10/2023 3:30 PM EDT Appointment [place] [address] 10/11/2023 8:30 AM EDT Infusion Hematology Oncology at [address] [phone] Scheduled Orders Name Type Priority [...] type documented in this encounter Care Teams Malthouse Laborer Relationship Specialty Start Date End Date Frederick Meade MD [address] [place] [address] PCP - General Family Medicine 11/29/17 documented as of this encounter
--- OUTSIDE RECORDS SUMMARY | 2023-10-03 03:13 | XMS_ITS | Encounter Summary ---
Author Organization [facility] [place] [address] Care Team Providers Care Cosmetology Professor Name Role Phone Frederick Meade MD Primary Care Provider +1 -[phone] Encounter Details Date Type Department Care Team [...] 10:00 AM EDT Office Visit Hematology/Oncology at [address] [phone] Adrianne Ramon MD [facility] DR HEMATOLOGY [place] [address] Yael Merlos APRN [facility] DR HEMATOLOGY [place] [address] 10/03/2023 10:30 AM EDT Infusion Hematology Oncology at [address] [phone] 10/10/2023 2:45 PM EDT Appointment XRay at [address] [place] [address] Micha Givens Jr., MD [facility] HEMATOLOGY [place] [address] 10/10/2023 3:00 PM EDT Appointment Non-[place]vasive [place] [phone] 10/10/2023 3:30 PM EDT Appointment [place] [address] 10/11/2023 8:30 AM EDT Infusion Hematology Oncology at [address] [phone] documented as of this encounter Visit Diagnoses Not on filedocumented in this encounter Care Teams Cosmetology Professor Relationship Specialty Start Date End Date Frederick Meade MD [address] [facility] 1 [place] [address] PCP - General Family Medicine 11/29/17 documented as of this encounter
--- OUTSIDE RECORDS SUMMARY | 2023-10-03 03:13 | XMS_ITS | Encounter Summary ---
[place] [address] Care Team Providers Care Cottage Attendant Name Role Phone Frederick Meade MD Primary Care Provider +1 -[phone] Reason for Referral * Diagnostic Test (Routine) - Closed Specialty Diagnoses / Procedures Referred By Contac t Referred To Contact Radiology Diagnoses Diffuse large B-cell lymphoma of lymph nodes of multiple regions Procedures NM PET CT Skull Base to Mid-thigh Yael Merlos APRN [facility] [place] [address] [place] [address] Referral ID Status Reason Start Date Expiration Date V isits Requested Visits Authorized [id number] Closed Specialty Service Requested 01/15/2023 07/15/2024 1 1 Encounter Details Date Type Department Care Team (Late st Contact Info) Description 01/15/2023 Orders Only [place]ematology [place] [address] Yael Merlos APRN [facility] [place] [address] Diffuse large B-cell lymphoma of [...] 10:00 AM EDT Office Visit Hematology/Oncology at [address] [phone] Adrianne Ramon MD [facility] HEMATOLOGY [place] [address] Yael Merlos, LABORATORY CHEMIST [facility] [place] [address] 10/03/2023 10:30 AM EDT Infusion Hematology Oncology at [address] [phone] 10/10/2023 2:45 PM EDT Appointment XRay at [address] [place] [address] Micha Givens Jr., MD [facility] HEMATOLOGY [place] [address] 10/10/2023 3:00 PM EDT Appointment Non-[place]vasive [place] [address] 10/10/2023 3:30 PM EDT [place] [address] 10/11/2023 8:30 AM EDT Infusion Hematology Oncology at [address] [phone] documented as of this encounter Results * [...] analyst that requested your imaging first. ? Narrative 03/08/2023 11:33 AM EST EXAMINATION: NM PET CT STANDARD SKULL BASE TO MID-THIGH CLINICAL HISTORY: Hematologic malignancy, assess treatment response History of diffuse large B-cell lymphoma, status post 6 cycles of RCHOP. TECHNIQUE: Following IV injection of 56-qynbzq-1-deoxyglucose (FDG) a standard uptake of approximately 60 [...] of RCHOP. TECHNIQUE: Following IV injection of 84-bziqrz-3-deoxyglucose (FDG) astandard uptake of approximately 60 minutes, [...] business analyst that requested your imaging first. 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
--- OUTSIDE RECORDS SUMMARY | 2023-10-03 03:13 | XMS_ITS | Encounter Summary ---
[place] [address] Care Team Providers Care Athletics Director Name Role Phone Frederick Meade MD Primary Care Provider [phone] [phone] Reason for Referral * Diagnostic Test (Routine) - Closed Specialty Diagnoses / Procedures Referred By Contac t Referred To Contact Radiology Diagnoses Diffuse large B-cell lymphoma of lymph nodes of multiple regions Procedures NM PET CT Skull Base to Mid-thigh Yael Merlos BOOKIE [facility] [place] [address] [place] [address] Referral ID Status Reason Start Date Expiration Date V isits Requested Visits Authorized [id number] Closed Specialty Service Requested 01/15/2023 07/15/2024 1 1 Reason for Visit * Diagnostic Test (Routine) - Closed Specialty Diagnoses / Procedures Referred By Contac t Referred To Contact Radiology Diagnoses Diffuse large B-cell lymphoma of lymph nodes of multiple regions Procedures NM PET CT Skull Base to Mid-thigh Yael Merlos BOOKIE [facility] [place] [address] [place] [address] Referral ID Status Reason Start Date Expiration Date V isits Requested Visits Authorized [id number] Closed Specialty Service Requested 01/15/2023 07/15/2024 1 1 Encounter Details Date Type Department Care Team (Latest Contact Info) Description 03/06/2023 7:52 AM EST - 03/06/2023 11:59 PM EST Hospital Encounter [place] [phone] Yael Merlos APRN [facility] [place] [address] Diffuse large B-cell lymphoma of lymph nodes [...] 10:00 AM EDT Office Visit Hematology/Oncology at [address] [address] Adrianne Ramon MD [facility] [place] [address] Yael Merlos APRN [facility] HEMATOLOGY [place] [address] 10/03/2023 10:30 AM EDT Infusion Hematology Oncology at [address] [phone] 10/10/2023 2:45 PM EDT Appointment XRay at [address] [place] [address] Micha Givens Jr., MD [facility] HEMATOLOGY [place] [address] 10/10/2023 3:00 PM EDT Appointment [place] [phone] 10/10/2023 3:30 PM EDT [place] [address] 10/11/2023 8:30 AM EDT Infusion Hematology Oncology at [address] [phone] documented as of this encounter Procedures Procedure [...] who have questions please contact the health vehicle care specialist that requested your imaging first. ? Electronically signed by: Tracey Flood MD, [facility] ??([phone]), at 03/08/2023 11:33 AM Narrative 03/08/2023 11:33 AM EST EXAMINATION: NM PET CT STANDARD SKULL BASE TO MID-THIGH CLINICAL HISTORY: Hematologic malignancy, assess treatment response History of diffuse large B-cell lymphoma, status post 6 cycles of RCHOP. TECHNIQUE: Following IV injection of 71-jrkbpn-0-deoxyglucose (FDG) a standard uptake of approximately 60 [...] of RCHOP. TECHNIQUE: Following IV injection of 40-lgbypt-0-deoxyglucose (FDG) astandard uptake of approximately 60 minutes, [...] patients who have questions please contactthe health vehicle care specialist that requested your imaging first. Electronically signed by: Tracey Flood MD, [facility]([phone]), at 03/08/2023 11:33 AM Yael Merlos BOOKIE [facility] PET ORDERABLES documented in this encounter [...] Port documented in this encounter Care Teams Athletics Director Relationship Specialty Start Date End Date Frederick Meade MD [address] [place] [address] PCP - General Family Medicine 11/29/17 documented as of this encounter
--- OUTSIDE RECORDS SUMMARY | 2023-10-03 03:13 | XMS_ITS | Encounter Summary ---
[place] [address] Care Team Providers Care Staffing And Scheduling Coordinator Name Role Phone Frederick Meade MD Primary Care Provider [phone] [phone] Reason for Referral * Diagnostic Test (Routine) - Closed Specialty Diagnoses / Procedures Referred By Contac t Referred To Contact Radiology Diagnoses Diffuse large B-cell lymphoma of lymph nodes of multiple regions Skin nodule Procedures IR Biopsy Lymph Node (Chest/Abdomen/Pelvis) IR Biopsy Lymph Node (Head/Neck) Adrianne Ramon MD [facility] [place] [address] [place] [address] Referral ID Status Reason Start Date Expiration Date V isits Requested Visits Authorized [id number] Closed Specialty Service Requested 08/22/2023 02/21/2025 1 1 * Diagnostic Test (Routine) - Closed Specialty Diagnoses / Procedures Referred By Contac t Referred To Contact Radiology Diagnoses Diffuse large B-cell lymphoma of lymph nodes of multiple regions Skin nodule Procedures NM PET CT Standard Plus Extremities and Head Adrianne Ramon MD [facility] [address] [place] [address] [place] [address] Referral ID Status Reason Start Date Expiration Date V isits Requested Visits Authorized [id number] Closed Specialty Service Requested 08/22/2023 02/21/2025 1 1 Encounter Details Date Type Department Care Team (Late st Contact Info) Description 08/22/2023 12:30 PM EDT Office Visit Hematology/Oncology at [address] [phone] Adrianne Ramon MD [facility] [address] [place] [address] Yael Merlos APRN [facility] [place] [address] Diffuse large B-cell lymphoma of lymph nodes [...] - 08/22/2023 12:30 PM EDT Hematology Clinic [facility] [place] [address] HEMATOLOGY PATIENT EVALUATION PROBLEM LIST: Patient Active [...] to consultation, he saw [facility] and when to [facility]. No beds so sent to [facility] for [address] CAP, [...] - unclear cause. - last COLO at [facility] was 01/17/2012. INTERIM HISTORY OF PRESENT [...] and needle of cervical LN. FISH from [place] No MYCrearrangement and no fusion of [...] only 1 biologic. Son Cheo Freire. Enjoys Online Dealer, movies, race car, cards. [employer]. 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 Not a . ETOH: 1-3 beers per week Smoking: Quit 1985. Approximately 34-gbyr-codm history Vaping or electronic cigarettes: denies Chewing [...] is a delightful 73-year old male in [facility] [...] and BCL-2 protein (Double Expressor.) Flow cytometry ([id number]) supports this interpretation. FISH from [place] No MYC rearrangement and no fusion of MYC and IGH was observed, CD3 (SP7, [employer] Scientific) Background T-cells CD20 (L26, [place]) diffusely positive in Neoplastic B-cells PAX-5 (1EW, Leica) diffusely positive in Neoplastic B-cells CD10 (SP67, [place]) Negative BCL-6 (G/191E/A8, [place]) Positive MUM-1 (MUM1p, [place]) Positive Myc (Y69, Abcam) Positive BCL-2 Oncoprotein (124, [place]) Positive Ki67 (MIB-1) (K2, [employer]ica) Greater than 95% of cells in cycle Cyclin D1(SP4-R, [place]) Negative SAPPHIRE JOSE (AFG3808-D, [employer]ica) Negative. DIAGNOSTICS: 01/25/23 ECHO after C#5 [...] 08/22/2023 left upper extremity ultrasound performed at [facility] Notable findings: In the left antecubital [...] undergo investigation with ultrasound. CT CAP at [facility], report and images have been requested. [...] listed above with ultrasound done today at [facility]. See report in scanned documents. This may represent a recurrence, but it could also be infectious. I spoke to Dr. Bruce Husain at [facility], who recommended large core needle biopsy. [...] keep. We will also do labs at [facility] on day of bio psies. Cardiac -Cheo [...] LVEF at 50-55%. --asymptomatic --repeat echo at [facility] 1 year post completion of therapy [...] - [address] at [facility] Surveillance every 3 mos for first year [...] 10:00 AM EDT Office Visit Hematology/Oncology at [address] [address] Adrianne Ramon MD [facility] [place] [address] Yael Merlos, KARLA [facility] HEMATOLOGY AND ONCOLOGY [place] [address] 10/03/2023 10:30 AM EDT Infusion Hematology Oncology at [address] [phone] 10/10/2023 2:45 PM EDT Appointment XRay at [address] [place] [address] Micha Givens Jr., MD [facility] [place] [address] 10/10/2023 3:00 PM EDT Appointment Non-Invasive [place] [address] 10/10/2023 3:30 PM EDT Appointment [place] [address] 10/11/2023 8:30 AM EDT Infusion Hematology Oncology at [address] [phone] documented as of this encounter Procedures Procedure Name Priority Date/Time Associated Diagnosis Comments CBC (WITH DIFF) Routine 08/22/2023 COMPREHENSIVE METABOLIC PANEL Routine 08/22/2023 documented in this encounter Results * NM PET CT Standard Plus Extremities and Head (09/06/2023 2:45 PM EDT) [place] WORKSTATION ID [id number] [facility] Anatomical Region Laterality Modality Positron Emissio [...] ? Electronically signed by: Rohan Henley MD, [facility] ([phone]), at 09/10/2023 11:18 AM Narrative 09/10/2023 11:18 [...] unspecified. TECHNIQUE: Procedure: Following IV injection of 64-gbudbh-3-deoxyglucose (FDG) a standard uptake of approximately 60 [...] unspecified. TECHNIQUE: Procedure: Following IV injection of 74-fmqmwc-3-deoxyglucose(FDG) a standard uptake of approximately 60 minutes, [...] first. Electronically signed by: Rohan Henley MD, [facility]([phone]), at 09/10/2023 11:18 AM Adrianne Ramon MD [...] Blood Culture No growth at 5 days. [facility] Blood ANTECUBITAL REGION STRUCTURE / Unknown 09/06/2023 10:12 AM EDT 09/06/2023 10:31 AM EDT Comment:Peripheral culture Narrative Resulting Agency Comment Spec In Lab Adrianne Raomn MD MICROBIOLOGY - B LOOD ORDERABLES Performing Organization Address City/[facility]/ZIP Co de Phone Number [place] [place] [address] * (ABNORMAL) Lactate Dehydrogenase (09/06/2023 10:12 AM EDT) Lactate Dehydrogenase 251(H) 110 - 220 unit/L [facility] Blood 09/06/2023 10:1 2 AM EDT 09/06/2023 10:16 AM EDT Narrative Resulting Agency Comment Spec In Lab Adrianne Ramon MD CHEMISTRY ORDERA BLES Performing Organization Address City/[facility]/ZIP Co de Phone Number [facility] [place] [address] * (ABNORMAL) Comprehensive metabolic panel (non-fasting) (09/06/2023 10:12 AM EDT) Glucose 170 65 - 199 mg/dL [facility] Comment:Diabetes: >=200 mg/d L plus symptoms Blood Urea Nitrogen 15 10 - 20 mg/dL [facility] Creatinine 1.07 0.80 - 1.50 mg/dL [facility] Sodium 143 135 - 145 mmol/L [facility] Potassium 3.8 3.5 - 5.0 mmol/L [facility] Comment: Please note: ??Patients with WBC >100,000 may have falsely elevated Potassium levels. ??For accurate Potassium quantification in these patients send serum separator tube (gold top) for subsequent determinations. ??Contact the Clinical Chemistry Laboratory if there are any questions. Chloride 107 98 - 107 mmol/L [facility] Carbon Dioxide 25 22 - 31 mmol/L [facility] Anion Gap 11 5 - 15 mmol/L [facility] Calcium 9.2 8.5 - 10.5 mg/dL [facility] Protein, Total 6.1 6.1 - 8.0 g/dL [facility] Albumin 3.7 3.2 - 5.2 g/dL [facility] Aspartate Aminotransferase 37 0 - 39 unit/L [facility] Alanine Aminotransferase 61(H) 0 - 55 unit/L [facility] Alkaline Phosphatase 151(H) 40 - 130 unit/L [facility] Bilirubin, Total 0.3 0.2 - 1.3 mg/dL [facility] Est Glomerular Filtration Rate 72 >=60 mL/min/1. 73 m?? [facility] Comment: This patient's estimated GFR [...] Lab Adrianne Ramon MD CHEMISTRY ORDERA BLES [facility] [address] * Comprehensive metabolic panel (non-fasting) (08/22/2023) Creatinine [...] lump documented in this encounter Care Teams Staffing And Scheduling Coordinator Relationship Specialty Start Date End Date Frederick Meade MD [address] [place] [address] PCP - General Family Medicine 11/29/17 documented as of this encounter
--- OUTSIDE RECORDS SUMMARY | 2023-10-03 03:13 | XMS_ITS | Encounter Summary ---
Author Organization [facility] [place] [address] Care Team Providers Care Studio Potter Name Role Phone Frederick Meade MD Primary Care Provider +1 -[phone] Encounter Details Date Type Department Care Team [...] 10:00 AM EDT Office Visit Hematology/Oncology at [address] [phone] Adrianne Ramon MD [facility] DR [place] [address] Yael Merlos APRN [facility] DR [place] [address] 10/03/2023 10:30 AM EDT Infusion Hematology Oncology at [address] [phone] 10/10/2023 2:45 PM EDT Appointment XRay at [address] [place] [address] Micha Givens Jr., MD [facility] [place] [address] 10/10/2023 3:00 PM EDT Appointment Non[place] [phone] 10/10/2023 3:30 PM EDT Appointment [place] [address] 10/11/2023 8:30 AM EDT Infusion Hematology Oncology at [address] [phone] documented as of this encounter Visit Diagnoses Not on filedocumented in this encounter Care Teams Studio Potter Relationship Specialty Start Date End Date Frederick Meade MD [address] [facility] [address] [place] [address] PCP - General Family Medicine 11/29/17 documented as of this encounter
--- OUTSIDE RECORDS SUMMARY | 2023-10-03 03:13 | XMS_ITS | Encounter Summary ---
Author Organization [facility] [place] [address] Care Team Providers Care Progressive Care Unit Registered Nurse Name Role Phone Frederick Meade MD Primary Care Provider [phone] [phone] Encounter Details Date Type Department Care Team [...] 10:00 AM EDT Office Visit Hematology/Oncology at [address] [phone] [facility] DR HEMATOLOGY [place] [address] [facility] DR HEMATOLOGY [place] [address] 10/03/2023 10:30 AM EDT Infusion Hematology Oncology at [address] [phone] 10/10/2023 2:45 PM EDT Appointment XRay at [address] [place] [address] Micha Givens Jr., MD [facility] HEMATOLOGY [place] [address] 10/10/2023 3:00 PM EDT Appointment Non-[place]vasive [place] [phone] 10/10/2023 3:30 PM EDT Appointment [place] [address] 10/11/2023 8:30 AM EDT Infusion Hematology Oncology at [address] [phone] documented as of this encounter Visit Diagnoses Not on filedocumented in this encounter Care Teams Progressive Care Unit Registered Nurse Relationship Specialty Start Date End Date Frederick Meade MD [address] [facility] 1 [place] [address] PCP - General Family Medicine 11/29/17 documented as of this encounter
--- OUTSIDE RECORDS SUMMARY | 2023-10-03 03:13 | XMS_ITS | Encounter Summary ---
[place] [address] Care Team Providers Care Pediatric Immunologist Name Role Phone Frederick Meade MD Primary Care Provider +1 [phone] Reason for Visit * Diagnostic Test (Routine) - Closed Specialty Diagnoses / Procedures Referred By Contac t Referred To Contact Radiology Diagnoses Diffuse large B-cell lymphoma of lymph nodes of multiple regions Procedures NM PET CT Skull Base to Mid-thigh Yael Merlos TRANSPORTATION DEPARTMENT SUPERVISOR [facility] [place] [address] [place] [address] Referral ID Status Reason Start Date Expiration Date V isits Requested Visits Authorized [id number] Closed Specialty Service Requested 01/15/2023 07/15/2024 1 1 Encounter Details Date Type Department Care Team (Latest Contact Info) Description 03/06/2023 7:52 AM EST - 03/06/2023 11:59 PM [facility] En[place] [address] Yael Merlos [facility] [place] [address] Discharge Disposition: Home Social History [...] AM EDT Office Visit Hematology/Oncology at [address] [phone] Adrianne Ramon MD [facility] DR HEMATOLOGY [place] [address] Yael Merlos, TRANSPORTATION DEPARTMENT SUPERVISOR [facility] [place] [address] 10/03/2023 10:30 AM EDT Infusion Hematology Oncology at [address] [phone] 10/10/2023 2:45 PM EDT Appointment XRay at [address] [place] [address] Micha Givens Jr., MD [facility] HEMATOLOGY [place] [address] 10/10/2023 3:00 PM EDT Appointment Non-[place] [address] 10/10/2023 3:30 PM EDT Appointment [place] [address] 10/11/2023 8:30 AM EDT Infusion Hematology Oncology at [address] [phone] documented as of this encounter Procedures Procedure Name Priority Date/Time Associated Diagnosis Comments NM PET CT SKULL BASE TO MID-THIGH ([facility]) Routine 03/06/2023 9:17 AM EST Diffuse large B-cell lymphoma of lymph nodes of multiple regions POCT GLUCOSE Routine 03/06/2023 8:05 AM EST documented in this encounter Results * POCT Glucose (03/06/2023 8:05 AM EST) Glucose, POC 126 65 - 199 mg/dL [facility] Comment: Supplemental ranges: <140 mg/dL before meals <180 mg/dL all other times of the day Blood 03/06/2023 8:05 AM EST 03/06/2023 8:05 AM EST Yael Merlos TRANSPORTATION DEPARTMENT SUPERVISOR POINT OF CARE TEST ORDERABLES [facility] [place] [address] documented in this encounter Visit Diagnoses Not on filedocumented in this encounter Care Teams Pediatric Immunologist Relationship Specialty Start Date End Date Frederick Meade MD [address] [place] [address] PCP - General Family Medicine 11/29/17 documented as of this encounter
--- OUTSIDE RECORDS SUMMARY | 2023-10-03 03:13 | XMS_ITS | Encounter Summary ---
Author Organization [facility] Address [facility] [place] [address] Care Team Providers Care Blindstitch Machine Operator Name Role Phone Frederick Meade MD Primary Care Provider [phone] [phone] Encounter Details Date Type Department Care Team (Late st Contact Info) Description 01/31/2023 Notes Only Hematology/Oncology at [address] [phone] Shelley Cason, [employer] OFFICE OF CARE MANAGEMENT Social History Tobacco [...] did not identify any new needs today. SENIOR ACCOUNTANT CPA will continue as a resource for them. Brief assessment Supportive Counseling documented in this encounter Plan of Treatment Upcoming Encounters Date Type Department Care Team (Late st Contact Info) Description 10/03/2023 10:00 AM EDT Office Visit Hematology/Oncology at [address] [phone] Adrianne Ramon MD [facility] HEMATOLOGY [place] [address] Yael Merlos APRN [facility] HEMATOLOGY [place] [address] 10/03/2023 10:30 AM EDT Infusion Hematology Oncology at [address] [phone] 10/10/2023 2:45 PM EDT Appointment XRay at [address] [place] [address] Micha Givens Jr., MD [facility] DR HEMATOLOGY [place] [address] 10/10/2023 3:00 PM EDT Appointment Non-[place]vasive [place] [phone] 10/10/2023 3:30 PM EDT [place] [address] 10/11/2023 8:30 AM EDT Infusion Hematology Oncology at [address] [phone] documented as of this encounter Visit Diagnoses Not on filedocumented in this encounter Care Teams Blindstitch Machine Operator Relationship Specialty Start Date End Date Frederick Meade MD [address] [place], [place] [address] [address] [address] PCP - General Family Medicine 11/29/17 documented as of this encounter
--- OUTSIDE RECORDS SUMMARY | 2023-10-03 03:13 | XMS_ITS | Encounter Summary ---
Author Organization [facility] Address [facility] [place] [address] Care Team Providers Care Woods Overseer Name Role Phone Frederick Meade MD Primary Care Provider [phone] Encounter Details Date Type Department Care Team (Late st Contact Info) Description 01/10/2023 8:30 AM EST Office Visit Hematology/Oncology at [address] [address] Adrianne Ramon MD [facility] [address] [place] [address] Diffuse large B-cell lymphoma of lymph nodes [...] 01/10/2023 8:30 AM EST Hematology Clinic [facility] [place] [address] HEMATOLOGY PATIENT EVALUATION Patient Active Problem [...] weeks ago saw [facility] in [facility] and when to [facility]. No beds so sent to [facility] for [address] CAP, MRI,and [...] x7 days with nice response. Pathology from [facility] reports large B-cell lymphoma. Double expresser. FISH for translocations are pending. Tongue swelling. No wt loss. Eating and drinking OK. No fevers, infections, No NS. Pain in neck.Prednisone 60mg daily X 7 days. I feel great on prednisone last day of prednisone is today Took iron supplements per PCP - unclear cause. - last COLO at [facility] was 01/17/2012. INTERIM HISTORY OF PRESENT ILLNESS: [...] and needle of cervical LN. FISH from [facility] No MYCrearrangement and no fusion of MYC [...] only 1 biologic. Son Cheo Freire. Enjoys [employer], [employer], [employer] car, [employer]. [employer]. 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 Not a . ETOH: 1-3 beers per week Smoking: Quit 1985. Approximately 77-lthn-[id number] history Vaping or electronic cigarettes: denies Chewing [...] is a delightful 72-year old male in [facility]. He is accompanied to the [...] and BCL-2 protein (Double Expressor.) Flow cytometry ([id number]) supports this interpretation. FISH from [facility] No MYC rearrangement and no fusion of MYC and IGH was observed, CD3 (SP7, [employer]) Background T-cells CD20 (L26, [place]) diffusely positive in Neoplastic B-cells PAX-5 (1EW, [employer]) diffusely positive in Neoplastic B-cells CD10 (SP67, [place]) Negative BCL-6 (G/191E/A8, [place]) Positive MUM-1 (MUM1p, [place]) Positive Myc (Y69, [employer]) Positive BCL-2 Oncoprotein (124, [place]) Positive Ki67 (MIB-1) (K2, [employer]) Greater than 95% of cells in cycle Cyclin D1(SP4-R, [place]) Negative SAPPHIRE JOSE ([id number], [employer]) Negative. DIAGNOSTICS: 11/28/22 ECHO after C#2 [...] 2023 - booked for 01/25/23 at [facility] Recommend COVID vaccine though he is aware that he may not have a robust response due to ongoing chemotherapy with B-cell depletion. He has already received influenza vaccine. Final PET week of Mar 05 at [facility] with appt 03/14/22 I discussed all of the above with the patient and all of his questions were answered. Support and counseling as appropriate. Copy Frederick Meade MD documented in this encounter Plan of Treatment Upcoming Encounters Date Type Department Care Team (Late st Contact Info) Description 10/03/2023 10:00 AM EDT Office Visit Hematology/Oncology at [address] [phone] Adrianne Ramon MD [facility] DR HEMATOLOGY [place] [address] Yael Merlos, KARLA [facility] [address] [place] [address] 10/03/2023 10:30 AM EDT Infusion Hematology Oncology at [address] [address] 10/10/2023 2:45 PM EDT Appointment XRay at [address] [place] [address] Micha Givens Jr., MD [facility] HEMATOLOGY [place] [address] 10/10/2023 3:00 PM EDT Appointment Non-Invasive [place] [address] 10/10/2023 3:30 PM EDT Appointment [place] [address] 10/11/2023 8:30 AM EDT Infusion Hematology Oncology at [address] [phone] documented as of this encounter [...] regions documented in this encounter Care Teams Woods Overseer Relationship Specialty Start Date End Date Frederick Meade MD [address] [place] [address] PCP - General Family Medicine 11/29/17 documented as of this encounter
--- OUTSIDE RECORDS SUMMARY | 2023-10-03 03:13 | XMS_ITS | Encounter Summary ---
[place] [address] Care Team Providers Care Estate Agent Name Role Phone Frederick Meade MD Primary Care Provider [phone] Reason for Referral * Diagnostic Test (Routine) - Closed Specialty Diagnoses / Procedures Referred By Contac t Referred To Contact Radiology Diagnoses Diffuse large B-cell lymphoma of lymph nodes of multiple regions Procedures IR Mediport Removal Yael Merlos ANIMAL RESEARCHER [facility] [place] [address] [facility] [place] [address] Referral ID Status Reason Start Date Expiration Date V isits Requested Visits Authorized [id number] Closed Specialty Service Requested 03/15/2023 09/12/2024 1 1 Encounter Details Date Type Department Care Team (Late st Contact Info) Description 03/15/2023 Orders Only Hematology [place] [address] Yael Merlos ANIMAL RESEARCHER [facility] [place] [address] Diffuse large B-cell lymphoma of [...] 10:00 AM EDT Office Visit Hematology/Oncology at [address] [phone] Adrianne Ramon MD [facility] [place] [address] Yael Merlos, ANIMAL RESEARCHER [facility] [place] [address] 10/03/2023 10:30 AM EDT Infusion Hematology Oncology at [address] [phone] 10/10/2023 2:45 PM EDT Appointment XRay at [address] [place] [address] Micha Givens Jr., MD [facility] HEMATOLOGY [place] [address] 10/10/2023 3:00 PM EDT Appointment Non-[place] [address] 10/10/2023 3:30 PM EDT Appointment [place] [address] 10/11/2023 8:30 AM EDT Infusion Hematology Oncology at [address] [address] documented as of this encounter Results * IR Mediport Removal (03/29/2023 2:32 PM EST) Anatomical Region Laterality Modality X-Ray Angiograph y Narrative 2023 1:04 PM EST Interventional Radiology Procedure Note Procedure: Chest port explant Indication: Lymphoma, therapy complete, discontinue long term central venous access for chemotherapy Pre-procedure: Informed [...] venous port with all components accounted for. 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
--- OUTSIDE RECORDS SUMMARY | 2023-10-03 03:13 | XMS_ITS | Encounter Summary ---
Author Organization [facility] [place] [address] Care Team Providers Care Application Support Name Role Phone Frederick Meade MD Primary Care Provider [phone] Encounter Details Date Type Department Care Team (Latest Contact Info) Description 09/06/2023 9:48 AM EDT - 09/06/2023 10:14 AM EDT Hospital Encounter [place]ematology [place] [address] Diffuse large B-cell lymphoma of lymph nodes [...] AM EDT Office Visit Hematology/Oncology at [address] [phone] Adrianne Ramon MD [facility] [place] [address] Yael Merlos, KARLA [facility] HEMATOLOGY [place] [address] 10/03/2023 10:30 AM EDT Infusion Hematology Oncology at [address] [phone] 10/10/2023 2:45 PM EDT Appointment XRay at [address] [place] [address] Micha Givens Jr., MD [facility] HEMATOLOGY [place] [address] 10/10/2023 3:00 PM EDT Appointment Non-Invasive [place] [address] 10/10/2023 3:30 PM EDT [place]ointment [place] [address] 10/11/2023 8:30 AM EDT Infusion Hematology Oncology at [address] [phone] documented as of this encounter Procedures Procedure [...] LABORATORY Neutrophil Absolute 4.20 1.70 - 6.10 x10(3)/[facility] LABORATORY Lymph % 14.1 % [facility] Lymphocytes Abs 0.9 0.9 - 3.2 x10(3)/[facility] LABORATORY Monocyte % 16.7 % [facility] Monocyte Abs 1.1(H) 0.3 - 0.9 x10(3)/[facility] LABORATORY Eos % 3.7 % [facility] Eosinophils Abs 0.2 0.0 - 0.4 x10(3)/[facility] LABORATORY Basophil % 0.3 % [facility] Baso Absolute 0.0 0.0 - 0.1 x10(3)/[facility] LABORATORY Immature Gran % 0.30 % [facility] Comment: Immature granulocytes(IG's)percentage and absolute count will include metamyelocytes, myelocytes, and promyelocytes. Blood smears from CBCs yielding IG's will be scanned manually for concordance. If this scan disagrees with the automated IG or if promyelocytes are noted, a manual differential will be performed. Immature Gran Absolute 0.02 0.00 - 0.04 x10(3)/ L [facility] Blood 09/06/2023 10:1 2 AM EDT 09/06/2023 10:16 AM EDT Narrative Resulting Agency Comment Spec In Lab Adrianne Ramon MD HEMATOLOGY ORDER DUONG [facility] [place] [address] * (ABNORMAL) Hemogram (09/06/2023 10:12 AM EDT) White Blood Cell 6.5 4.0 - 9.5 x10(3)/mc L [facility] Red Blood Cell 3.98(L) 4.58 - 5.54 x10(6)/mc L [facility] Hemoglobin 12.0(L) 13.7 - 16.5 g/dL [facility] Hematocrit 36.5(L) 40.5 - 48.5 % [facility] Mean Cell Volume 91.7 82.9 - 93.[address] [facility] Mean Cell Hemoglobin 30.2 27.5 - 32.[address] [facility] Mean Cell Hemoglobin Concentration 32.9 32.0 - 35.7 g/dL [facility] Platelet 145 145 - 357 x10(3)/mc L [facility] RDW Standard Deviation 48.4(H) 36.0 - 45.[address] [facility] RDW coefficient of variation 14.4(H) 11.4 - 13.8 % [facility] Mean Platelet Volume 10.3 7.6 - 12.[address] [facility] NRBC% auto 0.0 % [facility] NRBC Absolute 0.000 0.000 - 0.000 x10(3)/mc L [facility] Blood 09/06/2023 10:1 2 AM EDT 09/06/2023 10:16 AM EDT Narrative Resulting Agency Comment Spec In Lab Adrianne Ramon MD HEMATOLOGY ORDER DUONG [facility] [place] [address] * (ABNORMAL) Lactate Dehydrogenase (09/06/2023 10:12 AM EDT) Lactate Dehydrogenase 251(H) 110 - 220 unit/L [facility] Blood 09/06/2023 10:1 2 AM EDT 09/06/2023 10:16 AM EDT Narrative Resulting Agency Comment Spec In Lab Adrianne Ramon MD CHEMISTRY ORDERA BLES [facility] [place] [address] * (ABNORMAL) Comprehensive metabolic panel (non-fasting) (09/06/2023 10:12 AM EDT) Glucose 170 65 - 199 mg/dL [facility] Comment:Diabetes: >=200 mg/d L plus symptoms Blood Urea Nitrogen 15 10 - 20 mg/dL [facility] Creatinine 1.07 0.80 - 1.50 mg/dL [facility] Sodium 143 135 - 145 mmol/L [facility] Potassium 3.8 3.5 - 5.0 mmol/L [facility] Comment: Please note: ??Patients with WBC >100,000 may have falsely elevated Potassium levels. ??For accurate Potassium quantification in these patients send serum separator tube (gold top) for subsequent determinations. ??Contact the Clinical Chemistry Laboratory if there are any questions. Chloride 107 98 - 107 mmol/L [facility] Carbon Dioxide 25 22 - 31 mmol/L [facility] Anion Gap 11 5 - 15 mmol/L [facility] Calcium 9.2 8.5 - 10.5 mg/dL [facility] Protein, Total 6.1 6.1 - 8.0 g/dL [facility] Albumin 3.7 3.2 - 5.2 g/dL [facility] Aspartate Aminotransferase 37 0 - 39 unit/L [facility] Alanine Aminotransferase 61(H) 0 - 55 unit/L [facility] Alkaline Phosphatase 151(H) 40 - 130 unit/L [facility] Bilirubin, Total 0.3 0.2 - 1.3 mg/dL [facility] Est Glomerular Filtration Rate 72 >=60 mL/min/1. 73 m?? [facility] Comment: This patient's estimated GFR [...] Lab Adrianne Ramon MD CHEMISTRY ORDERA BLES [facility] [place] [address] * Blood culture (09/06/2023 10:12 AM EDT) Blood Culture No growth at [address] [facility] Blood ANTECUBITAL REGION STRUCTURE / Unknown 09/06/2023 10:12 AM EDT 09/06/2023 10:31 AM EDT Comment:Peripheral culture Narrative Resulting Agency Comment Spec In Lab Adrianne Ramon MD MICROBIOLOGY - B LOOD ORDERABLES [facility] [place] [address] documented in this encounter Visit Diagnoses Diagnosis Diffuse large B-cell lymphoma of lymph nodes of multiple regions Skin nodule Localized superficial swelling, mass, or lump documented in this encounter Care Teams Application Support Relationship Specialty Start Date End Date Frederick Meade MD [address] [place] [address] PCP - General Family Medicine 11/29/17 documented as of this encounter
--- OUTSIDE RECORDS SUMMARY | 2023-10-03 03:13 | XMS_ITS | Encounter Summary ---
Author Organization [facility] [place] [address] Care Team Providers Care Cattle And Wheat Farmer Name Role Phone Frederick Meade MD Primary Care Provider [phone] Reason for Referral * Diagnostic Test (Routine) - Closed Specialty Diagnoses / Procedures Referred By Contac t Referred To Contact Radiology Diagnoses Diffuse large B-cell lymphoma of lymph nodes of multiple regions Skin nodule Procedures IR Biopsy Lymph Node (Chest/Abdomen/Pelvis) IR Biopsy Lymph Node (Head/Neck) Adrianne Ramon MD [facility] HEMATOLOGY [place] [address] [place] [address] Referral ID Status Reason Start Date Expiration Date V isits Requested Visits Authorized [id number] Closed Specialty Service Requested 08/22/2023 02/21/2025 1 1 Reason for Visit * Diagnostic Test (Routine) - Closed Specialty Diagnoses / Procedures Referred By Contac t Referred To Contact Radiology Diagnoses Diffuse large B-cell lymphoma of lymph nodes of multiple regions Skin nodule Procedures IR Biopsy Lymph Node (Chest/Abdomen/Pelvis) IR Biopsy Lymph Node (Head/Neck) Adrianne Ramon MD [facility] HEMATOLOGY [place] [address] [facility] [address] Referral ID Status Reason Start Date Expiration Date V isits Requested Visits Authorized [id number] Closed Specialty Service Requested 08/22/2023 02/21/2025 1 1 Encounter Details Date Type Department Care Team (Late st Contact Info) Description 09/06/2023 10:15 AM EDT - 09/06/2023 12:58 PM EDT Hospital En[place] [address] Adrianne Ramon MD [facility] HEMATOLOGY [place] [address] Diffuse large B-cell lymphoma of [...] Caldwell RN - 09/06/2023 9:38 AM EDT [facility] Vascular and Interventional Radiology Lymph node [...] be reported to you by your primary managed care director or the clinician who ordered the biopsy. Please do not call us for results as we will not have them. If you have not been contacted by your clinician within 5 business days you should call that officefor further information. When to call the Interventional Radiology Department: Please call with any questions or concerns. If it is during regular office hours, please call [phone]. If it is after regular office hours, or on weekends or holidays, please call [phone] and ask to speak to the Topology Professor collection specialist for Interventional Radiology. ---- documented in this [...] PM EDT ANGIO NURSING DATABASE Name: Cheo rFeire Date of : 1950 AGE: 73 y.o. Address: [address] [place] [address] [address] [facility] [address] Phone: [phone] (home) Mobile: Telephone Information: Referring Provider: Adrianne Ramon REASON FOR VISIT: Order Questions Answers Where will study be performed? [facility] Radiology [120] To be scheduled Ordering [...] Questions Answers Where will study be performed? [facility] Radiology [120] To be scheduled Ordering [...] IR Mediport Placement 10/17/2022 Gail Jha PA [facility] INTERVENTIONL RAD IR MEDIPORT REMOVAL 03/29/2023 IR Mediport Removal 03/29/2023 Ole Arvizu MD [facility] INTERVENTIONL RAD TONSILLECTOMY 1958 Social history [...] interventional radiology the day of procedure) 09/06/2023 Sivlio Wang DO documented in this encounter Procedure [...] AM EDT Office Visit Hematology/Oncology at [address] [phone] Adrianne Ramon MD [facility] HEMATOLOG[facility] [place] [address] Yael Merlos, TELEGRAPH OFFICE TELEPHONE CLERK [facility] HEMATOLOGY [place] [address] 10/03/2023 10:30 AM EDT Infusion Hematology Oncology at [address] [phone] 10/10/2023 2:45 PM EDT Appointment XRay at [address] [place] [phone] Micha Givens Jr., MD [facility] HEMATOLOGY [place] [address] 10/10/2023 3:00 PM EDT Appointment Non-[place] [address] 10/10/2023 3:30 PM EDT Appointment [place] [address] 10/11/2023 8:30 AM EDT Infusion Hematology Oncology at [address] [phone] Pending Results Name Type Priority Associated Diagnoses Date /Time AFB culture Microbiology Routine 09/06/2023 11:25 AM EDT Fungus Culture & Calc [...] Flow Cytometry Report (09/06/2023 12:28 PM EDT) Pathologist [facility] Flow Cytometry Report [id number] ? Location: [facility] The signing pathologist has (i) examined the relevant preparation(s) for the specimen(s) and (ii) rendered or confirmed the diagnosis(es). . ?Flow Cytometry DIAGNOSIS ? 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 See comment. Electronically signed by: ?Dana OCASIO, [facility] Verified: ??09/10/2023 15:05 ??Hematopathologist Performed at: ??-[facility] Dept. of Pathology, [place] [address] Cycle Liaison: Katherine Lopez MD, AP, ??IA Certificate: [id number] DISCUSSION The T-lymphocytes , B- lymphocytes and [...] high complexity clinical laboratory testing. SPECIMEN PROCESSING [id number] Cells for immunophenotypic analysis were derived from LEFT AUX LYMPH NODE. CD45 vs side scatter gating was utilized to identify a LYMPHOID analysis region that comprises approximately 95-97% of all cells. The following markers were assessed: CD2, CD3, CD4, CD5, CD7, CD8, CD10, CD19, CD20, CD23, CD38, CD45, CD56, FMC-7, kappa light chain, and lambda light chain. CLINICAL INFORMATION dlbcl [facility] 09/06/2023 12:2 8 PM EDT Micha Pearl MD PATHOLOGY/CYTOLOGY O RDERABLES [facility] [place] [address] * Immunophenotyping Flow Cytometry (09/06/2023 12:28 PM EDT) Immunophenotyping Flow See Comment [facility] Comment: When completed by the Pathologist, the Flow Cytometry Report ([id number]) will display under the Pathology Results section within eDH. Other 09/06/2023 12:2 8 PM EDT 09/06/2023 12:47 PM EDT Narrative Resulting Agency Comment Spec In Lab Micha Pearl MD HEMATOLOGY ORDERABLE S [facility] [place] [id number] * Flow Cytometry Report (09/06/2023 11:40 AM EDT) Flow Cytometry Report [id number] ? Location: 3 The signing pathologist has (i) examined the relevant preparation(s) for the specimen(s) and (ii) rendered or confirmed the diagnosis(es). . ?Flow Cytometry DIAGNOSIS Flow cytometric diagnosis: ?? No ??B-cell population or phenotypically abnormal T-cell population is detected. Electronically signed by: ?Dana OCASIO, [facility] Verified: ??09/07/2023 15:52 ??Hematopathologist Performed at: ??-[facility] Dept. of Pathology, [place] [address] Cycle Liaison: Katherine Lopez MD, AP, ??CLIA Certificate: [id number] DISCUSSION Blasts based on CD45 expression and [...] 5, 7). There is no increase in LV79-qakdyebd/CD3-n eg NK cells. Flow analysis is an [...] high complexity clinical laboratory testing. SPECIMEN PROCESSING [id number] Cells for immunophenotypic analysis were derived from left arm collection. CD45 vs side scatter gating was utilized to identify a lymphoid analysis region that comprises approximately 18-27% of all cells. The following markers were assessed: CD2, CD3, CD4, CD5, CD7, CD8, CD10, CD19, CD45, CD56, kappa light chain, and lambda light chain. CLINICAL INFORMATION [facility] 09/06/2023 11:4 0 AM EDT James Champion DO PATHOLOGY/CYTOLOGY O RDERABLES Performing Organization Address [facility]/ZIP Co de Phone Number [facility] [place] [address] * Immunophenotyping Flow Cytometry (09/06/2023 11:40 AM EDT) Immunophenotyping Flow See Comment [facility] Comment: When completed by the Pathologist, the Flow Cytometry Report ([id number]) will display under the Pathology Results section within eDH. Other 09/06/2023 11:4 0 AM EDT 09/06/2023 12:11 PM EDT Narrative Resulting Agency Comment Spec In Lab James Champion DO HEMATOLOGY ORDERABLE S Performing Organization Address [facility]/ZIP Co de Phone Number [facility] [place] [address] * chromo report acquired (09/06/2023 11:35 AM EDT) Cytogenetics Acquired Report Final Report ? [id number] Specimen Type: Fixed Tissue Specimen Condition: 1 [...] using dual-color, break-apart probes for BCL6/3q27 rearrangement ([employer] shows a signal pattern consistent with a BCL6 rearrangement in 0% of 100 cells. This is within the acceptable reference limits (0-7.4%). Thus, there is no evidence for BCL6/3q27 gene rearrangement. Interphase FISH analysis using dual-color, break-apart probes for MYC/8q24 rearrangement ([employer] shows 0% of 100 cells with [...] using dual-color, dual-fusion probes for CCND1-IGH/t(11;14) (q24;q32) ([employer] shows 0% of 100 cells with [...] by the [facility] ([facility]) Cytogenetics Laboratory as required by The Clinical [...] test? s accuracy and precision. The [facility] Cytogenetics Laboratory is certified under the CLIA? 88 as qualified to perform high complexity clinical laboratory testing. Chromosome alterations outside the regions complementary to these DNA FISH probes will not be detected. 09.20.23 (Electronic Signature) Verified By: Channing Ph.D., [facility], Tommy Loja Clinical Firmware Software Verification Engineer/Mol ecular Fur Joiner [facility] 09/06/2023 11:3 5 AM EDT 09/11/2023 8:57 AM EDT James Champion DO HEMATOLOGY ORDERABLE S [facility] [place] [address] * (ABNORMAL) Surgical Pathology Report (09/06/2023 11:35 AM EDT) Pathologist [facility] Surgical Pathology Report [id number] ? Location: [facility] The signing pathologist has (i) examined [...] [facility] Verified: ??09/10/2023 18:38 ??Hematopathologist Performed at: ??-[facility] Dept. of Pathology, [place] [address] Cycle Liaison: Katherine Lopez MD, FCAP, ??CLIA Certificate: [id number] SYNOPTIC THIS RESULT REQUIRES PHYSICIAN/A.P.P. FOLLOW UP [...] lymphoid neoplasms . Blood . 2016. 127 (20):9912-4244. Rafael CP et al . Blood 103:275-282 [...] submitted in 2 cassettes labeled B1-B2. ??CCP(A) [facility] 09/06/2023 11:3 5 AM EDT James Champion DO PATHOLOGY/CYTOLOGY O RDERABLES [facility] [place] [address] * Anaerobic Culture (09/06/2023 11:25 AM EDT) Anaerobic Culture No anaerobic organisms isolated [facility] Arm 09/06/2023 11:2 5 AM EDT 09/06/2023 12:21 PM EDT Comment:Left Arm Collection versus mass Narrative Resulting Agency Comment Spec In Lab James Champion DO MICROBIOLOGY - GENER AL ORDERABLES Performing Organization Address City/[facility]/ZIP Co de Phone Number [facility] [place] [address] * Tissue culture (09/06/2023 11:25 AM EDT) Tissue Culture No growth [facility] Gram Stain Few Neutrophils seen No microorganisms seen. [facility] Arm 09/06/2023 11:2 5 AM EDT 09/06/2023 12:21 PM EDT Comment:Left Arm Collection versus mass Narrative Resulting Agency Comment Spec In Lab James Champion DO MICROBIOLOGY - GENER AL ORDERABLES Performing Organization Address [facility] Co de Phone Number [facility] [place] [address] * Calcofluor White Stain (09/06/2023 11:25 AM EDT) Calcofluor Stain Calcofluor White Preparation: Negative [facility] Other 09/06/2023 11:2 5 AM EDT 09/06/2023 12:21 PM EDT Comment:Left Arm Collection versus Mass Narrative Resulting Agency Comment Spec In Lab James Champion DO MICROBIOLOGY - GENER AL ORDERABLES Performing Organization Address [facility]/ZIP Co de Phone Number [facility] [place] [address] * Specimen to Pathology (09/06/2023 11:20 AM EDT) AP Specimen 09/06/2023 11:2 0 AM EDT 09/06/2023 11:20 AM EDT Narrative [facility] - 09/06/2023 11:20 AM EDT Specimen requisition ordered. ??Separate Pathology report to follow James Champion DO PATHOLOGY/CYTOLOGY O RDERABLES Performing Organization Address City/[facility]/ZIP Co de Phone Number [facility] [place] [address] * Specimen to Pathology (09/06/2023 10:43 AM EDT) AP Specimen 09/06/2023 10:4 3 AM EDT 09/06/2023 10:43 AM EDT Narrative [facility] - 09/06/2023 10:43 AM EDT Specimen requisition ordered. ??Separate Pathology report to follow Micha Pearl MD PATHOLOGY/CYTOLOGY O COLIN Performing Organization Address [facility] [place] [address] * Cytopathology Non-Gynecological (09/06/2023 10:41 AM EDT) AP Specimen 09/06/2023 10:4 1 AM EDT 09/06/2023 10:41 AM EDT Narrative [facility] - 09/06/2023 10:41 AM EDT Specimen requisition ordered. ??Separate Pathology report to follow Micha Pearl MD PATHOLOGY/CYTOLOGY O COLIN Performing Organization Address [facility] [place] [address] documented in this encounter Visit Diagnoses Diagnosis [...] mg documented in this encounter Care Teams Cattle And Wheat Farmer Relationship Specialty Start Date End Date Frederick Meade MD [address] [place] [address] PCP - General Family Medicine 11/29/17 documented as of this encounter
--- OUTSIDE RECORDS SUMMARY | 2023-10-03 03:13 | XMS_ITS | Encounter Summary ---
Author Organization [facility] [place] [address] Care Team Providers Care Manager Business Operations Name Role Phone Frederick Meade MD Primary Care Provider [phone] Reason for Visit * Reason Comments Chemotherapy [...] 100MG (CYTOXAN) Adrianne Ramon MD [facility] DR [place] [address] [facility] Infusion [address] [place] [phone] Referral ID Status Reason Start Date Expiration Date Visits Re quested Visits Authorized [id number] Closed 10/11/2022 10/11/2023 1 100 Encounter Details Date Type Department Care Team (Late st Contact Info) Description 01/31/2023 9:00 AM EST Infusion Hematology Oncology at [address] [phone] Diffuse large B-cell lymphoma of [...] treatment. OBJECTIVE LAB DATA: [facility] [...] 10:00 AM EDT Office Visit Hematology/Oncology at [address] [phone] Adrianne Ramon MD [facility] [place] [address] Yael Merlos APRN [facility] [address] [place] [address] 10/03/2023 10:30 AM EDT Infusion Hematology Oncology at [address] [phone] 10/10/2023 2:45 PM EDT Appointment XRay at [address] [place] [address] Micha Givens Jr., MD [facility] [place] [address] 10/10/2023 3:00 PM EDT Appointment Non-[place] [address] 10/10/2023 3:30 PM EDT [place] [address] 10/11/2023 8:30 AM EDT Infusion Hematology Oncology at [address] [phone] documented as of this encounter Visit Diagnoses [...] 2 minutes is a recommendation from the pathology collector. Administer prior to chemotherapy., Routine Given 01/31/2023 [...] Job Aid: Adult Flushing & Catheter Care (5724) job aid for additional information regarding guidelines [...] Job Aid: Adult Flushing & Catheter Care (8231) job aid for additional information regarding guidelines [...] mL/hr documented in this encounter Care Teams Manager Business Operations Relationship Specialty Start Date End Date Frederick Meade MD [address] [place] [address] PCP - General Family Medicine 11/29/17 documented as of this encounter
--- OUTSIDE RECORDS SUMMARY | 2023-10-03 03:13 | XMS_ITS | Encounter Summary ---
Author Organization [facility] [place] [address] Care Team Providers Care Java Websphere Developer Name Role Phone Frederick Meade MD Primary Care Provider [phone] Encounter Details Date Type Department Care Team [...] 10:00 AM EDT Office Visit Hematology/Oncology at [address] [phone] Adrianne Ramon MD [facility] DR HEMATOLOGY [place] [address] Yael Merlos APRN [facility] DR HEMATOLOGY [place] [address] 10/03/2023 10:30 AM EDT Infusion Hematology Oncology at [address] [phone] 10/10/2023 2:45 PM EDT Appointment XRay at [address] [place] [address] Micha Givens Jr., MD [facility] HEMATOLOGY [place] [address] 10/10/2023 3:00 PM EDT Appointment Non-[place] [phone] 10/10/2023 3:30 PM EDT Appointment [place] [address] 10/11/2023 8:30 AM EDT Infusion Hematology Oncology at [address] [phone] documented as of this encounter Visit Diagnoses Not on filedocumented in this encounter Care Teams Java Websphere Developer Relationship Specialty Start Date End Date Frederick Meade MD [address] [facility] [place] [address] PCP - General Family Medicine 11/29/17 documented as of this encounter
--- OUTSIDE RECORDS SUMMARY | 2023-10-03 03:13 | XMS_ITS | Encounter Summary ---
[place] [address] Care Team Providers Care Tool Designer Name Role Phone Frederick Meade MD Primary Care Provider [phone] Encounter Details Date Type Department Care Team (Late st Contact Info) Description 06/22/2023 Orders Only Hematology [place] [phone] Deidre Silverio Social History Tobacco Use Types [...] 10:00 AM EDT Office Visit Hematology/Oncology at [address] [address] Adrianne Ramon MD [facility] [place] [address] Yael Merlos APRN [facility] HEMATOLOGY [place] [address] 10/03/2023 10:30 AM EDT Infusion Hematology Oncology at [address] [phone] 10/10/2023 2:45 PM EDT Appointment XRay at [address] [place] [phone] Micha Givens Jr., MD [facility] HEMATOLOGY [place] [address] 10/10/2023 3:00 PM EDT Appointment Non-[place] [phone] 10/10/2023 3:30 PM EDT Appointment [place] [phone] 10/11/2023 8:30 AM EDT Infusion Hematology Oncology at [address] [phone] documented as of this encounter Visit Diagnoses Not on filedocumented in this encounter Care Teams Tool Designer Relationship Specialty Start Date End Date Frederick Meade MD [address] [place] [address] PCP - General Family Medicine 11/29/17 documented as of this encounter
--- OUTSIDE RECORDS SUMMARY | 2023-10-03 03:14 | XMS_ITS | Encounter Summary ---
Author Organization [facility] Address [facility] [place] [address] Care Team Providers Care Taxi Servicer Name Role Phone Frederick Meade MD Primary Care Provider [phone] Reason for Visit * Reason Onset Date Comments Follow-up 10/25/2022 Pt admitted to [facility] Encounter Details Date Type Department Care Team (Late st Contact Info) Description 10/25/2022 Telephone Hematology/Oncology at [address] [phone] Colt Ardon RN Follow-up (Pt admitted to [facility] ) Social History Tobacco Use Types Packs/Day [...] to report pt is getting admitted to [facility] with dehydration and low WBC. He did end up having a bowel movement ?last night but this morning couldn't urinate and had abdominal pressure again. They went to [facility] ED. Dr Mcbride at [facility] called and is admitted him, stating hisANC was 20. Pt had cycle 1 RCHOP with Neulasta On-pro on 10/18 for his DLBCL. Team made aware. Will check in on pt's disposition tomorrow. documented in this encounter Plan of Treatment Upcoming Encounters Date Type Department Care Team (Late st Contact Info) Description 10/03/2023 10:00 AM EDT Office Visit Hematology/Oncology at [address] [phone] Adrianne Ramon MD [facility] HEMATOLOGY [place] [address] Yael Merlos, ELECTRIC ARC WELDER [facility] HEMATOLOGY [place] [address] 10/03/2023 10:30 AM EDT Infusion Hematology Oncology at [address] [phone] 10/10/2023 2:45 PM EDT Appointment XRay at [address] [place] [address] Micha Givens Jr., MD [facility] DR HEMATOLOGY [place] [address] 10/10/2023 3:00 PM EDT Appointment [place] [address] 10/10/2023 3:30 PM EDT Appointment [place] [address] 10/11/2023 8:30 AM EDT Infusion Hematology Oncology at [address] [phone] documented as of this encounter Visit Diagnoses Not on filedocumented in this encounter Care Teams Taxi Servicer Relationship Specialty Start Date End Date Frederick Meade MD [address] [facility] [address] [place] [address] PCP - General Family Medicine 11/29/17 documented as of this encounter
--- OUTSIDE RECORDS SUMMARY | 2023-10-03 03:14 | XMS_ITS | Encounter Summary ---
Author Organization [facility] Address [place] [address] Care Team Providers Care Recording Studio Intern Name Role Phone Frederick Meade MD Primary Care Provider +1 -[phone] Reason for Visit * Reason Onset Date Comments Other 11/15/2022 To ER Encounter Details Date Type Department Care Team (Late st Contact Info) Description 11/15/2022 Telephone Hematology/Oncology at [address] [address] Polly Orellana RN Other (To [...] Ramon ask he go to ER. Called [facility] Er and gave report to RN. Recent notes faxed. documented in this encounter Plan of Treatment Upcoming Encounters Date Type Department Care Team (Late st Contact Info) Description 10/03/2023 10:00 AM EDT Office Visit Hematology/Oncology at [address] [address] Adrianne Ramon MD [facility] HEMATOLOGY [place] [address] Yael Merlos APRN [facility] HEMATOLOGY [place] [address] 10/03/2023 10:30 AM EDT Infusion Hematology Oncology at [address] [address] 10/10/2023 2:45 PM EDT Appointment XRay at [address] [place] [address] Micha Givens Jr., MD [facility] HEMATOLOGY AND ONCOLOGY [place] [phone] 10/10/2023 3:00 PM EDT Appointment Non-[place] [address] 10/10/2023 3:30 PM EDT Appointment [place] [address] 10/11/2023 8:30 AM EDT Infusion Hematology Oncology at [address] [phone] documented as of this encounter Visit Diagnoses Not on filedocumented in this encounter Care Teams Recording Studio Intern Relationship Specialty Start Date End Date Frederick Meade MD [address] [place] [address] [address] [place] [address] PCP - General Family Medicine 11/29/17 documented as of this encounter
--- OUTSIDE RECORDS SUMMARY | 2023-10-03 03:14 | XMS_ITS | Encounter Summary ---
Author Organization [facility] [place] [address] Care Team Providers Care Orthopaedic Technologist Name Role Phone Frederick Meade MD Primary Care Provider +1 [phone] Encounter Details Date Type Department Care Team (Late st Contact Info) Description 11/16/2022 Orders Only Hematology [place] [phone] Adrianne Ramon MD [facility] DR [place] [address] High risk medication use; Diffuse large B-cell [...] 10:00 AM EDT Office Visit Hematology/Oncology at [address] [address] Adrianne Ramon MD [facility] [place] [address] Yael Merlos, PEST CONTROL WORKER [facility] HEMATOLOGY [place] [address] 10/03/2023 10:30 AM EDT Infusion Hematology Oncology at [address] [address] 10/10/2023 2:45 PM EDT Appointment XRay at [address] [place] [address] Micha Givens Jr., MD [facility] HEMATOLOGY [place] [address] 10/10/2023 3:00 PM EDT Appointment Non-[place] [address] 10/10/2023 3:30 PM EDT Appointment [place] [address] 10/11/2023 8:30 AM EDT Infusion Hematology Oncology at [address] [phone] documented as of this encounter Visit Diagnoses Diagnosis High risk medication use Encounter for long-term (current) use of other medications Diffuse large B-cell lymphoma of lymph nodes of multiple regions documented in this encounter Care Teams Orthopaedic Technologist Relationship Specialty Start Date End Date Frederick Meade MD [address] [place] [address] PCP - General Family Medicine 11/29/17 documented as of this encounter
--- OUTSIDE RECORDS SUMMARY | 2023-10-03 03:14 | XMS_ITS | Encounter Summary ---
[place] [address] Care Team Providers Care Archival Records Clerk Name Role Phone Frederick Meade MD Primary Care Provider +1 -[phone] Encounter Details Date Type Department Care Team (Late st Contact Info) Description 10/24/2022 Telephone Hematology [place] [phone] Castro Jimenez MD [facility] HEMATOLOGY/[place] [address] Social History Tobacco Use Types Packs/Day Years [...] nausea, vomiting or severe abdominal pain. CC: [facility] Castro Jimenez MD [facility] Hematology Oncology Fellow Page [phone] documented in this encounter Plan of Treatment Upcoming Encounters Date Type Department Care Team (Late st Contact Info) Description 10/03/2023 10:00 AM EDT Office Visit Hematology/Oncology at [address] [address] Adrianne Ramon MD [facility] DR HEMATOLOGY [place] [address] Yael Merlos, KARLA [facility] DR HEMATOLOGY [place] [address] 10/03/2023 10:30 AM EDT Infusion Hematology Oncology at [address] [phone] 10/10/2023 2:45 PM EDT Appointment XRay at [address] [place] [address] Micha Givens Jr., MD [facility] DR HEMATOLOGY [place] [address] 10/10/2023 3:00 PM EDT Appointment Non-[place]vasive [place] [address] 10/10/2023 3:30 PM EDT Appointment [place] [address] 10/11/2023 8:30 AM EDT Infusion Hematology Oncology at [address] [phone] documented as of this encounter Visit Diagnoses Not on filedocumented in this encounter Care Teams Archival Records Clerk Relationship Specialty Start Date End Date Frederick Meade MD [address] [place] [address] [address] [place] [address] PCP - General Family Medicine 11/29/17 documented as of this encounter
--- OUTSIDE RECORDS SUMMARY | 2023-10-03 03:14 | XMS_ITS | Encounter Summary ---
Author Organization [facility] [place] [address] Care Team Providers Care Donkey Engine Firer/Fireman Name Role Phone Frederick Meade MD Primary Care Provider [phone] [phone] Encounter Details Date Type Department Care Team [...] 10:00 AM EDT Office Visit Hematology/Oncology at [address] [phone] Adrianne Ramon MD [facility] DR [place] [address] Yael Merlos APRN [facility] DR [place] [address] 10/03/2023 10:30 AM EDT Infusion Hematology Oncology at [address] [phone] 10/10/2023 2:45 PM EDT Appointment XRay at [address] [place] [address] Micha Givens Jr., MD [facility] [place] [address] 10/10/2023 3:00 PM EDT Appointment Non[place] [address] 10/10/2023 3:30 PM EDT Appointment [place] [address] 10/11/2023 8:30 AM EDT Infusion Hematology Oncology at [address] [phone] documented as of this encounter Visit Diagnoses Not on filedocumented in this encounter Care Teams Donkey Engine Firer/Fireman Relationship Specialty Start Date End Date Frederick Meade MD [address] [facility] 1 [place] [address] PCP - General Family Medicine 11/29/17 documented as of this encounter
--- OUTSIDE RECORDS SUMMARY | 2023-10-03 03:14 | XMS_ITS | Encounter Summary ---
Author Organization [facility] [place] [address] Care Team Providers Care Human Relations Teacher Name Role Phone Frederick Meade MD Primary Care Provider +1 -[phone] Reason for Visit * Reason Onset Date Comments Follow-up 11/01/2022 Encounter Details Date Type Department Care Team (Late st Contact Info) Description 11/01/2022 Telephone Hematology/Oncology at [address] [phone] Polly Orellana RN Follow-up Social [...] Dr. Ramon needs them to go to [facility] next Sunday to see Dr. Barbosa. They feel if things continue to get better therewill be no issue, they will let us know if things change. documented in this encounter Plan of Treatment Upcoming Encounters Date Type Department Care Team (Late st Contact Info) Description 10/03/2023 10:00 AM EDT Office Visit Hematology/Oncology at [address] [phone] Adrianne Ramon MD [facility] HEMATOLOGY [place] [address] Yael Merlos, DIGITAL PRODUCER [facility] HEMATOLOGY [place] [address] 10/03/2023 10:30 AM EDT Infusion Hematology Oncology at [address] [phone] 10/10/2023 2:45 PM EDT Appointment XRay at [address] [place] [address] Micha Givens Jr., MD [facility] HEMATOLOGY [place] [address] 10/10/2023 3:00 PM EDT Appointment [place] [address] 10/10/2023 3:30 PM EDT Appointment [place] [address] 10/11/2023 8:30 AM EDT Infusion Hematology Oncology at [address] [phone] documented as of this encounter Visit Diagnoses Not on filedocumented in this encounter Care Teams Human Relations Teacher Relationship Specialty Start Date End Date Frederick Meade MD [address] [place] [address] PCP - General Family Medicine 11/29/17 documented as of this encounter
--- OUTSIDE RECORDS SUMMARY | 2023-10-03 03:14 | XMS_ITS | Encounter Summary ---
Author Organization [facility] Address [facility] [place] [address] Care Team Providers Care Coin Machine Service Repairer Name Role Phone Frederick eMade MD Primary Care Provider [phone] -[phone] Encounter Details Date Type Department Care Team (Late st Contact Info) Description 11/29/2022 Notes Only Hematology/Oncology at [address] [phone] Shelley Cason, [facility] OFFICE OF CARE MANAGEMENT Social History Tobacco [...] the team is looking at more affordableoptions. [employer] does not have a solution to the cost but offered information about the [facility] [facility] which if approved would send a monthly [...] 10:00 AM EDT Office Visit Hematology/Oncology at [address] [phone] Adrianne Ramon MD [facility] HEMATOLOGY [place] [address] Yael Merlos, TOILET AND LAUNDRY SOAP SUPERVISOR [facility] DR HEMATOLOGY [place] [address] 10/03/2023 10:30 AM EDT Infusion Hematology Oncology at [address] [phone] 10/10/2023 2:45 PM EDT Appointment XRay at [address] [place] [address] Micha Givens Jr., MD [facility] DR HEMATOLOGY [place] [address] 10/10/2023 3:00 PM EDT Appointment [place] [address] 10/10/2023 3:30 PM EDT Appoint[place] [address] 10/11/2023 8:30 AM EDT Infusion Hematology Oncology at [address] [phone] documented as of this encounter Visit Diagnoses Not on filedocumented in this encounter Care Teams Coin Machine Service Repairer Relationship Specialty Start Date End Date Frederick Meade MD [address] [place] [address] PCP - General Family Medicine 11/29/17 documented as of this encounter
--- OUTSIDE RECORDS SUMMARY | 2023-10-03 03:14 | XMS_ITS | Encounter Summary ---
[place] [address] Care Team Providers Care Washroom Attendant Name Role Phone Frederick Meade MD Primary Care Provider +1 -[phone] Reason for Referral * Diagnostic Test (Routine) - Closed Specialty Diagnoses / Procedures Referred By Contac t Referred To Contact Cardiology Diagnoses Diffuse large B-cell lymphoma of lymph nodes of multiple regions Procedures Echocardiogram Transthoracic Adrianne Mera MD [facility] DR [place] [address] [facility] [place] [address] Referral ID Status Reason Start Date Expiration Date V isits Requested Visits Authorized [id number] Closed Specialty Service Requested 10/12/2022 10/12/2023 1 1 Reason for Visit * Diagnostic Test (Routine) - Closed Specialty Diagnoses / Procedures Referred By Contac t Referred To Contact Cardiology Diagnoses Diffuse large B-cell lymphoma of lymph nodes of multiple regions Procedures Echocardiogram Transthoracic Adrianne Mera MD [facility] DR [place] [address] [facility] [place] [address] Referral ID Status Reason Start Date Expiration Date V isits Requested Visits Authorized [id number] Closed Specialty Service Requested 10/12/2022 10/12/2023 1 1 Encounter Details Date Type Department Care Team (Late st Contact Info) Description 11/06/2022 10:45 AM EDT - 11/06/2022 11:59 PM EDT Hospital Encounter Non-Invasive Cardiology Lab [facility] [place] [address] Adrianne Mera MD [facility] DR [place] [address] Diffuse large B-cell lymphoma of lymph nodes [...] Chewable Take 325 mg by mouth daily. prochlorperazine (Compazine) 10 [...] 10:00 AM EDT Office Visit Hematology/Oncology at [address] [phone] Adrianne Mera MD [facility] DR [place] [address] Yael Merlos APRN [facility] DR [place] [address] 10/03/2023 10:30 AM EDT Infusion Hematology Oncology at [address] [phone] 10/10/2023 2:45 PM EDT Appointment XRay at [address] [place] [address] Micha Givens Jr., MD [facility] HEMATOLOGY [place] [address] 10/10/2023 3:00 PM EDT Appointment Non-[place]vasive [place] [address] 10/10/2023 3:30 PM EDT [place]oint[place] [address] 10/11/2023 8:30 AM EDT Infusion Hematology Oncology at [address] [phone] documented as of this encounter [...] 11:11 AMBP: 154/72 mmHg ? [facility] 1950 ? Height: 169 cm ? Account: [id number] Age: 72 yrs ? Weight: 93 kg Gender: Male ?BSA: 2.0 m2 Ordering Physician: ADRIANNE MERA Referring Physician: ADRIANNE MERA Performed By: SHAHANA Fernando Reason For Study: Lymphoma Exam Location: [facility]. Interpretation Summary LV systolic function appears to be low-normal. LV ejection fraction appears to be 52%. Global longitudinal strain is measured at -16.6 %. (GE). There are no segmental wall motion abnormalities. Normal right ventricle. No significant valvular abnormalities. Trivial pericardial effusion. On direct comparison to prior echo dated 10/12/2022, the LV function has slightly improved. Procedure Limited - 32018. Left ventricular strain. Satisfactory quality. There is [...] - 11/06/2022 Echocardiogram Report Name: CHEO MORFIN Tom Study Date: 1:11 AMBP: 154/72 mmHg Patient Location: : 1950 Height: 169 cm Account: [id number] Age: 72 yrs Weight: 93 kg Gender: Male BSA: 2.0 m2 Ordering Physician: ADRIANNE MERA Referring Physician: ADRIANNE MERA Performed By: SHAHANA Fernando Reason For Study: Lymphoma Exam Location: [facility]. Interpretation Summary LV systolic function appears to be low-normal. LV ejection fractionappears to be 52%. Global longitudinal strain is measured at -16.6 %. (GE). There areno segmental wall motion abnormalities. Normal right ventricle. No significant valvular abnormalities. Trivial pericardial effusion. On direct comparison to prior echo dated 10/12/2022, the LV function hasslightly improved. Procedure Limited - [id number]. Left ventricular strain. Satisfactory quality. There isnormal [...] regions documented in this encounter Care Teams Washroom Attendant Relationship Specialty Start Date End Date Frederick Meade MD [address] [place] [address] [address] [place] [address] PCP - General Family Medicine 11/29/17 documented as of this encounter
--- OUTSIDE RECORDS SUMMARY | 2023-10-03 03:14 | XMS_ITS | Encounter Summary ---
Author Organization [facility] [place] [address] Care Team Providers Care Body Wirer Name Role Phone Frederick Meade MD Primary Care Provider +1 -[phone] Encounter Details Date Type Department Care Team (Late st Contact Info) Description 10/19/2022 Telephone Hematology/Oncology at [address] [phone] Brenda Priest, RN Social History [...] AM EDT Office Visit Hematology/Oncology at [address] [phone] Adrianne Ramon MD [facility] HEMATOLOGY [place] [address] Yael Merlos APRN [facility] HEMATOLOGY [place] [address] 10/03/2023 10:30 AM EDT Infusion Hematology Oncology at [address] [address] 10/10/2023 2:45 PM EDT Appointment XRay at [address] [place] [address] Micha Givens Jr., MD [facility] HEMATOLOGY [place] [address] 10/10/2023 3:00 PM EDT Appointment Non-[place]vasive [place] [address] 10/10/2023 3:30 PM EDT Appointment [place] [address] 10/11/2023 8:30 AM EDT Infusion Hematology Oncology at [address] [phone] documented as of this encounter Visit Diagnoses Not on filedocumented in this encounter Care Teams Body Wirer Relationship Specialty Start Date End Date Frederick Meade MD [address] [facility] [address] [place] [address] PCP - General Family Medicine 11/29/17 documented as of this encounter
--- OUTSIDE RECORDS SUMMARY | 2023-10-03 03:14 | XMS_ITS | Encounter Summary ---
Author Organization [facility] [place] [address] Care Team Providers Care Remote Sensing Advisor Name Role Phone Frederick Meade MD Primary Care Provider +1 -[phone] Encounter Details Date Type Department Care Team [...] AM EDT Office Visit Hematology/Oncology at [address] [phone] Adrianne Ramon MD [facility] DR HEMATOLOGY [place] [address] Yael Merlos APRN [facility] DR HEMATOLOGY [place] [address] 10/03/2023 10:30 AM EDT Infusion Hematology Oncology at [address] [phone] 10/10/2023 2:45 PM EDT Appointment XRay at [address] [place] [address] Micha Givens Jr., MD [facility] HEMATOLOGY [place] [address] 10/10/2023 3:00 PM EDT Appointment Non[place] [address] 10/10/2023 3:30 PM EDT Appointment [place] [address] 10/11/2023 8:30 AM EDT Infusion Hematology Oncology at [address] [phone] documented as of this encounter Visit Diagnoses Not on filedocumented in this encounter Care Teams Remote Sensing Advisor Relationship Specialty Start Date End Date Frederick Meade MD [address] [facility] 1 [place] [address] PCP - General Family Medicine 11/29/17 documented as of this encounter
--- OUTSIDE RECORDS SUMMARY | 2023-10-03 03:14 | XMS_ITS | Encounter Summary ---
Author Organization [facility] [place] [address] Care Team Providers Care Title One Teacher Name Role Phone Frederick Meade MD Primary Care Provider [phone] -[phone] Encounter Details Date Type Department Care Team [...] 10:00 AM EDT Office Visit Hematology/Oncology at [address] [phone] Adrianne Ramon MD [facility] DR HEMATOLOGY [place] [address] Yael Merlos APRN [facility] DR HEMATOLOGY [place] [address] 10/03/2023 10:30 AM EDT Infusion Hematology Oncology at [address] [phone] 10/10/2023 2:45 PM EDT Appointment XRay at [address] [place] [address] Micha Givens Jr., MD [facility] HEMATOLOGY [place] [address] 10/10/2023 3:00 PM EDT Appointment Non-[place] [phone] 10/10/2023 3:30 PM EDT Appointment [place] [address] 10/11/2023 8:30 AM EDT Infusion Hematology Oncology at [address] [phone] documented as of this encounter Visit Diagnoses Not on filedocumented in this encounter Care Teams Title One Teacher Relationship Specialty Start Date End Date Frederick Meade MD [address] [facility] 1 [place] [address] PCP - General Family Medicine 11/29/17 documented as of this encounter
--- OUTSIDE RECORDS SUMMARY | 2023-10-03 03:14 | XMS_ITS | Encounter Summary ---
Author Organization [facility] Address [facility] [place] [address] Care Team Providers Care Industrial Health And Safety Professor Name Role Phone Frederick Meade MD Primary Care Provider +1 -[phone] Encounter Details Date Type Department Care Team (Late st Contact Info) Description 12/20/2022 Notes Only Hematology/Oncology at [address] [phone] Shelley Cason, [facility] [...] [facility] They are appreciative of this financial assistance. Cheo indicated he tolerated his last treatment much better than the first 2 so he hope his one will go well. Oferred them support as Mrs. Freire shared how challenging this is for them. Reminded them of CAPACITY PLANNING ANALYST availability and will continue to follow for support and resources. Brief assessment Supportive Counseling Financial resources Community Resource documented in this encounter Plan of Treatment Upcoming Encounters Date Type Department Care Team (Late st Contact Info) Description 10/03/2023 10:00 AM EDT Office Visit Hematology/Oncology at [address] [phone] Adrianne Ramon MD [facility] DR [place] [address] Yael Merlos APRN [facility] HEMATOLOGY [place] [address] 10/03/2023 10:30 AM EDT Infusion Hematology Oncology at [address] [phone] 10/10/2023 2:45 PM EDT Appointment XRay at [address] [place] [address] Micha Givens Jr., MD [facility] HEMATOLOGY [place] [address] 10/10/2023 3:00 PM EDT Appointment Non-[place] [phone] 10/10/2023 3:30 PM EDT Appointment [place] [address] 10/11/2023 8:30 AM EDT Infusion Hematology Oncology at [address] [phone] documented as of this encounter Visit Diagnoses Not on filedocumented in this encounter Care Teams Industrial Health And Safety Professor Relationship Specialty Start Date End Date Frederick Meade MD [address] [place] [address] [address] PCP - General Family Medicine 11/29/17 documented as of this encounter
--- OUTSIDE RECORDS SUMMARY | 2023-10-03 03:14 | XMS_ITS | Encounter Summary ---
Author Organization [facility] [place] [address] Care Team Providers Care Service Delivery Analyst Name Role Phone Frederick Meade MD Primary Care Provider +1 [phone] Encounter Details Date Type Department Care Team [...] 10:00 AM EDT Office Visit Hematology/Oncology at [address] [phone] Adrianne Ramon MD [facility] DR HEMATOLOGY [place] [address] Yael Merlos APRN [facility] DR HEMATOLOGY [place] [address] 10/03/2023 10:30 AM EDT Infusion Hematology Oncology at [address] [phone] 10/10/2023 2:45 PM EDT Appointment XRay at [address] [place] [address] Micha Givens Jr., MD [facility] HEMATOLOGY [place] [address] 10/10/2023 3:00 PM EDT Appointment Non-[place] [phone] 10/10/2023 3:30 PM EDT [place]ointment [place] [address] 10/11/2023 8:30 AM EDT Infusion Hematology Oncology at [address] [phone] documented as of this encounter Visit Diagnoses Not on filedocumented in this encounter Care Teams Service Delivery Analyst Relationship Specialty Start Date End Date Frederick Meade MD [address] [facility] 1 [place] [address] PCP - General Family Medicine 11/29/17 documented as of this encounter
--- OUTSIDE RECORDS SUMMARY | 2023-10-03 03:14 | XMS_ITS | Encounter Summary ---
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 No beds so sent to [facility] for [address] CAP, [...] x7 days with nice response. Pathology from [facility] reports large B-cell lymphoma. Double expresser. FISH for translocations are pending. Tongue swelling. No wt loss. Eating and drinking OK. No fevers, infections, No NS. Pain in neck.Prednisone 60mg daily X 7 days. I feel great on prednisone last day of prednisone is today Took iron supplements per PCP - unclear cause. - last COLO at [facility] was 01/17/2012. Cheo returns today with his [...] and needle of cervical LN. FISH from [place] No MYCrearrangement and no fusion of MYC [...] only 1 biologic. Son Cheo Freire. Enjoys [employer]ago, [employer], race car, [employer]. [employer]. 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 Not a . ETOH: 1-3 beers per week Smoking: Quit 1985. Approximately 14-uapv-sjee history Vaping or electronic cigarettes: denies Chewing [...] and BCL-2 protein (Double Expressor.) Flow cytometry ([id number]) supports this interpretation. FISH from [place] No MYC rearrangement and no fusion of MYC and IGH was observed, CD3 (SP7, Thermo Scientific) Background T-cells CD20 (L26, [place]) diffusely positive in Neoplastic B-cells PAX-5 (1EW, Leica) diffusely positive in Neoplastic B-cells CD10 (SP67, [place]) Negative BCL-6 (G/191E/A8, [place]) Positive MUM-1 (MUM1p, [place]ako) Positive Myc (Y69, Abcam) Positive BCL-2 Oncoprotein (124, [place]) Positive Ki67 (MIB-1) (K2, Leica) Greater than 95% of cells in cycle Cyclin D1(SP4-R, [place]) Negative SAPPHIRE JOSE ([id number], Leica) Negative. DIAGNOSTICS: 11/06/22 ECHO after C#1 [...] undergo investigation with ultrasound. CT CAP at [facility], report and images have been requested. [...] chemotherapy. Furtherprednisone prescriptions will be given by PROTOTYPE CARPENTER, during PTI chemotherapy teaching Suspected MEHNAZ - Hgb drop 3gm in last 2 weeks. Taking oral iron 2 tabs per day. Stools have been pumper helper recently. No COLO in last 10 years. [...] in 3 weeks. ECHO following C#3 at [facility] - week of Dec 04 or Dec 11 I discussed all of the above with the patient and all of his questions were answered. Support and counseling as appropriate. This note was written or modified using 3Scan voice recognition software. The final note was screened for demonstrator sewing techniques errors. Please excuse any remaining errors. Addendum staff message from Matthew Barbosa, Cardiology: Adrianne; Thanks for the message; will see if we can see him up in [place]. On review of his CT, he has [...] 10:00 AM EDT Office Visit Hematology/Oncology at [address] [phone] Adrianne Mera MD [facility] DR HEMATOLOGY [place] [address] Yael Merlos APRN [facility] HEMATOLOGY [place] [address] 10/03/2023 10:30 AM EDT Infusion Hematology Oncology at [address] [phone] 10/10/2023 2:45 PM EDT Appointment XRay at [address] [place] [address] Micha Givens Jr., MD [facility] HEMATOLOGY [place] [address] 10/10/2023 3:00 PM EDT Appointment Non-Invasive [place] [address] 10/10/2023 3:30 PM EDT Appointment [place] [address] 10/11/2023 8:30 AM EDT Infusion Hematology Oncology at [address] [phone] documented as of this encounter Procedures Procedure [...] medications documented in this encounter Care Teams Apprentice Stylist Relationship Specialty Start Date End Date Frederick Meade MD [address] [place] [address] PCP - General Family Medicine 11/29/17 documented as of this encounter
--- OUTSIDE RECORDS SUMMARY | 2023-10-03 03:14 | XMS_ITS | Encounter Summary ---
Author Organization [facility] [place] [address] Care Team Providers Care Crab Butcher Name Role Phone Frederick Meade MD Primary Care Provider [phone] [phone] Reason for Visit * Reason Onset Date Comments Questions 11/14/2022 Encounter Details Date Type Department Care Team (Late st Contact Info) Description 11/14/2022 Telephone Hematology/Oncology at [address] [phone] Colt Ardon, RN Questions Social [...] [facility] are soft formed, not loose He has been taking Metamucil regularly, his wants to make sure that is normal Best call back number [phone] documented in this encounter Plan of Treatment Upcoming Encounters Date Type Department Care Team (Late st Contact Info) Description 10/03/2023 10:00 AM EDT Office Visit Hematology/Oncology at [address] [phone] Adrianne Ramon MD [facility] [place] [address] Yael Merlos APRN [facility] [place] [address] 10/03/2023 10:30 AM EDT Infusion Hematology Oncology at [address] [phone] 10/10/2023 2:45 PM EDT Appointment XRay at [address] [place] [address] Micha Givens Jr., MD [facility] DR [place] [address] 10/10/2023 3:00 PM EDT Appointment Non-[place] [phone] 10/10/2023 3:30 PM EDT [place] [address] 10/11/2023 8:30 AM EDT Infusion Hematology Oncology at [address] [phone] documented as of this encounter Visit Diagnoses Not on filedocumented in this encounter Care Teams Crab Butcher Relationship Specialty Start Date End Date Frederick Meade MD [address] [place] [address] PCP - General Family Medicine 11/29/17 documented as of this encounter
--- OUTSIDE RECORDS SUMMARY | 2023-10-03 03:14 | XMS_ITS | Encounter Summary ---
Author Organization [facility] Address [facility] [place] [address] Care Team Providers Care Nipping Machine Operator Name Role Phone Frederick Meade MD Primary Care Provider +1 -[phone] Reason for Visit * Reason Onset Date Comments Follow-up 10/26/2022 Encounter Details Date Type Department Care Team (Late st Contact Info) Description 10/26/2022 Telephone Hematology/Oncology at [address] [phone] Tania Rosales, RN Follow-up Social [...] than yesterday. He is still admitted at [facility] and relays that the care plan is to keep him admitted until his WBC go up. Per the [facility] progress note, the goal is for an ANC greater than 500 and he is stable, labs this morning his ANC was 90. His next FUV here is 11/08. Cheo was thankful for the call. documented in this encounter Plan of Treatment Upcoming Encounters Date Type Department Care Team (Late st Contact Info) Description 10/03/2023 10:00 AM EDT Office Visit Hematology/Oncology at [address] [phone] Adrianne Ramon MD [facility] DR [place]AT[place] [address] Yael Merlos APRN [facility] [place] [address] 10/03/2023 10:30 AM EDT Infusion Hematology Oncology at [address] [phone] 10/10/2023 2:45 PM EDT Appointment XRay at [address] [place] [address] Micha Givens Jr., MD [facility] [place]AT[place] [address] 10/10/2023 3:00 PM EDT Appointment Non-Invasive [place] [phone] 10/10/2023 3:30 PM EDT Appoint[place] [phone] 10/11/2023 8:30 AM EDT Infusion Hematology Oncology at [address] [phone] documented as of this encounter Visit Diagnoses Not on filedocumented in this encounter Care Teams Nipping Machine Operator Relationship Specialty Start Date End Date Frederick Meade MD [address] [place] [address] PCP - General Family Medicine 11/29/17 documented as of this encounter
--- OUTSIDE RECORDS SUMMARY | 2023-10-03 03:14 | XMS_ITS | Encounter Summary ---
Author Organization [facility] [place] [address] Care Team Providers Care Patient Service Representative Name Role Phone Frederick Meade MD Primary Care Provider +1 -[phone] Reason for Visit * Reason Comments Chemotherapy [...] TC CYCLOPHOSPHAMIDE, 100MG (CYTOXAN) Adrianne Ramon MD [facility] DR HEMATOLOGY [place] [address] [facility] [address] [place] [address] Referral ID Status Reason Start Date Expiration Date Visits Re quested Visits Authorized [id number] Closed 10/11/2022 10/11/2023 1 100 Encounter Details Date Type Department Care Team (Late st Contact Info) Description 12/20/2022 8:30 AM EDT Infusion Hematology Oncology at [address] [phone] Diffuse large B-cell lymphoma of [...] treatment. OBJECTIVE LAB DATA: completed 12/20 at [facility] Pre administration: Chemotherapy orders independently [...] AM EDT Office Visit Hematology/Oncology at [address] [phone] Adrianne Ramon MD [facility] DR HEMATOLOGY [place] [address] Yael Merlos APRN [facility] DR HEMATOLOGY [place] [address] 10/03/2023 10:30 AM EDT Infusion Hematology Oncology at [address] [phone] 10/10/2023 2:45 PM EDT Appointment XRay at [address] [place] [address] Micha Givens Jr., MD [facility] DR HEMATOLOG[place] [address] 10/10/2023 3:00 PM EDT Appointment Non-Invasive [place] [address] 10/10/2023 3:30 PM EDT Appointment [place] [address] 10/11/2023 8:30 AM EDT Infusion Hematology Oncology at [address] [address] documented as of this encounter Visit Diagnoses [...] 2 minutes is a recommendation from the pin or clip fastener. Administer prior to chemotherapy., Routine Given 12/20/2022 [...] (IV) Procedure: Accessing Implanted Vascular Access Devices (374) procedure and/or Intravenous (IV) Job Aid: Adult Flushing & Catheter Care (4506) job aid for additional information regarding guidelines [...] mL/hr documented in this encounter Care Teams Patient Service Representative Relationship Specialty Start Date End Date Frederick Meade MD [address] [place] [address] PCP - General Family Medicine 11/29/17 documented as of this encounter
--- OUTSIDE RECORDS SUMMARY | 2023-10-03 03:14 | XMS_ITS | Encounter Summary ---
Author Organization [facility] [place] [address] Care Team Providers Care Fire Alarm Installer Name Role Phone Frederick Meade MD Primary Care Provider +1 -[phone] Reason for Visit * Reason Comments Chemotherapy [...] TC CYCLOPHOSPHAMIDE, 100MG (CYTOXAN) Adrianne Ramon MD [facility] DR [place] [address] [facility] [address] [place] [address] Referral ID Status Reason Start Date Expiration Date Visits Re quested Visits Authorized [id number] Closed 10/11/2022 10/11/2023 1 100 Encounter Details Date Type Department Care Team (Late st Contact Info) Description 11/08/2022 10:00 AM EDT Infusion Hematology Oncology at [address] [phone] Diffuse large B-cell lymphoma of [...] treatment. OBJECTIVE LAB DATA: completed 11/08 at [facility] Pre administration: Chemotherapy orders [...] AM EDT Office Visit Hematology/Oncology at [address] [address] Adrianne Ramon MD [facility] DR [place] [address] Yael Merlos APRN [facility] DR [place] [address] 10/03/2023 10:30 AM EDT Infusion Hematology Oncology at [address] [address] 10/10/2023 2:45 PM EDT Appointment XRay at [address] [place] [address] Micha Givens Jr., MD [facility] HEMATOLOGY [place] [address] 10/10/2023 3:00 PM EDT Appointment Non[place] [phone] 10/10/2023 3:30 PM EDT Appointment [place] [phone] 10/11/2023 8:30 AM EDT Infusion Hematology Oncology at [address] [phone] documented as of this encounter [...] 2 minutes is a recommendation from the metal cnc operator. Administer prior to chemotherapy., Routine Given 11/08/2022 [...] Job Aid: Adult Flushing & Catheter Care (8661) job aid for additional information regarding guidelines [...] Job Aid: Adult Flushing & Catheter Care (1044) job aid for additional information regarding guidelines [...] documented in this encounter Care Teams Fire Alarm Installer Relationship Specialty Start Date End Date Frederick Meade MD [address] [place] [address] PCP - General Family Medicine 11/29/17 documented as of this encounter
--- OUTSIDE RECORDS SUMMARY | 2023-10-03 03:14 | XMS_ITS | Encounter Summary ---
[place] [address] Care Team Providers Care System Support Specialist Name Role Phone Frederick Meade MD Primary Care Provider +1 -[phone] Encounter Details Date Type Department Care Team (Late st Contact Info) Description 10/25/2022 Telephone Hematology [place] [phone] Davey Magdaleno MD [facility] DR HEMATOLOGY/[place] [address] Social History Tobacco Use Types Packs/Day Years [...] a call from Dr. Mcbride (Hospitalist) at [facility] this morning in regards to Cheo. 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 He presented to [facility] with an oral temp of 38.6. His [...] saw Dr. Ramon, on 10/12 and started [facility] in [facility] on 10/18 with neupogen. I am [...] AM EDT Office Visit Hematology/Oncology at [address] [phone] Adrianne Ramon MD [facility] HEMATOLOGY [place] [address] Yael Merlos APRN [facility] HEMATOLOGY AND ONCOLOGY [place] [address] 10/03/2023 10:30 AM EDT Infusion Hematology Oncology at [address] [address] 10/10/2023 2:45 PM EDT Appointment XRay at [address] [place] [address] Micha Givens Jr., MD [facility] HEMATOLOGY AND ONCOLOGY [place] [address] 10/10/2023 3:00 PM EDT Appointment Non-[place] [address] 10/10/2023 3:30 PM EDT Appointment [place] [address] 10/11/2023 8:30 AM EDT Infusion Hematology Oncology at [address] [phone] documented as of this encounter Visit Diagnoses Not on filedocumented in this encounter Care Teams System Support Specialist Relationship Specialty Start Date End Date Frederick Meade MD [address] [place] [address] PCP - General Family Medicine 11/29/17 documented as of this encounter
--- OUTSIDE RECORDS SUMMARY | 2023-10-03 03:14 | XMS_ITS | Encounter Summary ---
Author Organization [facility] [place] [address] Care Team Providers Care Construction Controller Name Role Phone Frederick Meade MD Primary Care Provider +1 [phone] Encounter Details Date Type Department Care Team (Late st Contact Info) Description 10/20/2022 Telephone Hematology/Oncology at [address] [phone] Maeve Nicole, RN Social History [...] Education provided: SEE ABOVE Plan: Reinforced to patient/care-timber rider to call facility 11/09 with any new/worsening signs and symptoms orconcerns or questions. Phone number provided. Pt verbalized understanding and is in agreement with plan. documented in this encounter Plan of Treatment Upcoming Encounters Date Type Department Care Team (Late st Contact Info) Description 10/03/2023 10:00 AM EDT Office Visit Hematology/Oncology at [address] [phone] Adrianne Ramon MD [facility] DR HEMATOLOGY [place] [address] Yael Merlos APRN [facility] DR HEMATOLOGY [place] [address] 10/03/2023 10:30 AM EDT Infusion Hematology Oncology at [address] [phone] 10/10/2023 2:45 PM EDT Appointment XRay at [address] [place] [address] Micha Givens Jr., MD [facility] DR HEMATOLOGY [place] [address] 10/10/2023 3:00 PM EDT Appointment Non-Invasive Cardiology [place] [address] 10/10/2023 3:30 PM EDT Appoint[place] [address] 10/11/2023 8:30 AM EDT Infusion Hematology Oncology at [address] [address] documented as of this encounter Visit Diagnoses Not on filedocumented in this encounter Care Teams Construction Controller Relationship Specialty Start Date End Date Frederick Meade MD [address] [place] [address] PCP - General Family Medicine 11/29/17 documented as of this encounter
--- OUTSIDE RECORDS SUMMARY | 2023-10-03 03:14 | XMS_ITS | Encounter Summary ---
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. No beds so sent to [facility] for [address] CAP, [...] - unclear cause. - last COLO at [facility] was 01/17/2012. INTERIM HISTORY OF PRESENT ILLNESS: [...] and needle of cervical LN. FISH from [place] No MYCrearrangement and no fusion of MYC [...] only 1 biologic. Son Cheo Freire. Enjoys [employer], [employer], [employer], [employer]. [employer]. 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 Not a . ETOH: 1-3 beers per week Smoking: Quit 1985. Approximately 44-pahl-bark history Vaping or electronic cigarettes: denies Chewing [...] is a delightful 72-year old male in [place]. He is [...] and BCL-2 protein (Double Expressor.) Flow cytometry ([id number]) supports this interpretation. FISH from [place] No MYC rearrangement and no fusion of MYC and IGH was observed, CD3 (SP7, Thermo Scientific) Background T-cells CD20 (L26, [place]) diffusely positive in Neoplastic B-cells PAX-5 (1EW, [employer]ica) diffusely positive in Neoplastic B-cells CD10 (SP67, [place]) Negative BCL-6 (G/191E/A8, [place]) Positive MUM-1 (MUM1p, [place]ako) Positive Myc (Y69, Abcam) Positive BCL-2 Oncoprotein (124, [place]) Positive Ki67 (MIB-1) (K2, Leica) Greater than 95% of cells in cycle Cyclin D1(SP4-R, [place]) Negative SAPPHIRE JOSE ([id number], Leica) Negative. DIAGNOSTICS: 10/10/23 ECHO after C#2 [...] undergo investigation with ultrasound. CT CAP at [facility], report and images have been requested. [...] Taking oral iron bid. Stools have been pyrotechnist recently. No COLO in last 10 years. [...] 10:00 AM EDT Office Visit Hematology/Oncology at [address] [phone] Adrianne Ramon MD [facility] DR HEMATOLOGY [place] [address] Yael Merlos, COMMUNITY HEALTH EDUCATION COORDINATOR [facility] HEMATOLOGY AND [place] [address] 10/03/2023 10:30 AM EDT Infusion Hematology Oncology at [address] [phone] 10/10/2023 2:45 PM EDT Appointment XRay at [address] [place] [address] Micha Givens Jr., MD [facility] HEMATOLOGY AND [place] [address] 10/10/2023 3:00 PM EDT Appointment Non-Invasive [place] [address] 10/10/2023 3:30 PM EDT Appointment [place] [address] 10/11/2023 8:30 AM EDT Infusion Hematology Oncology at [address] [address] Scheduled Orders Name Type Priority Associated Diagnoses [...] type documented in this encounter Care Teams Manager Valuation Relationship Specialty Start Date End Date Frederick Meade MD [address] [place] [address] PCP - General Family Medicine 11/29/17 documented as of this encounter
--- OUTSIDE RECORDS SUMMARY | 2023-10-03 03:14 | XMS_ITS | Encounter Summary ---
Author Organization [facility] [place] [address] Care Team Providers Care Boiler House Operator Name Role Phone Frederick Meade MD Primary Care Provider +1 -[phone] Reason for Visit * Reason Comments Chemotherapy [...] CYCLOPHOSPHAMIDE, 100MG (CYTOXAN) Adrianne Ramon MD [facility] DR [place] [address] [facility] [address] [place] [address] Referral ID Status Reason Start Date Expiration Date Visits Re quested Visits Authorized [id number] Closed 10/11/2022 10/11/2023 1 100 Encounter Details Date Type Department Care Team (Late st Contact Info) Description 11/29/2022 9:30 AM EDT Infusion Hematology Oncology at [address] [phone] Diffuse large B-cell lymphoma of [...] AM EDT Office Visit Hematology/Oncology at [address] [address] Adrianne Ramon MD [facility] DR HEMATOLOGY [place] [address] Yael Merlos APRN [facility] HEMATOLOG[place] [address] 10/03/2023 10:30 AM EDT Infusion Hematology Oncology at [address] [address] 10/10/2023 2:45 PM EDT Appointment XRay at [address] [place] [address] Micha Givens Jr., MD [facility] HEMATOLOGY [place] [address] 10/10/2023 3:00 PM EDT Appointment Non-[place] [address] 10/10/2023 3:30 PM EDT Appointment [place] [address] 10/11/2023 8:30 AM EDT Infusion Hematology Oncology at [address] [phone] documented as of this encounter [...] 2 minutes is a recommendation from the nurse coordinator. Administer prior to chemotherapy., Routine Given 11/29/2022 [...] Job Aid: Adult Flushing & Catheter Care (1740) job aid for additional information regarding guidelines [...] Job Aid: Adult Flushing & Catheter Care (4024) job aid for additional information regarding guidelines [...] mL/hr documented in this encounter Care Teams Boiler House Operator Relationship Specialty Start Date End Date Frederick Meade MD [facility] [address] [facility] 1 [place] [address] PCP - General Family Medicine 11/29/17 documented as of this encounter
--- OUTSIDE RECORDS SUMMARY | 2023-10-03 03:14 | XMS_ITS | Encounter Summary ---
Author Organization [facility] Address [facility] [place] [address] Care Team Providers Care Fatback Trimmer Name Role Phone Frederick Meade MD Primary Care Provider +1 -[phone] Reason for Visit * Reason Onset Date Comments Other 10/30/[address] admission to [facility] Encounter Details Date Type Department Care Team (Late st Contact Info) Description 10/30/2022 Telephone Hematology/Oncology at [address] [phone] Lucía Nelson RN Other (FUV questions after admission to [facility]) Social History Tobacco Use Types Packs/Day [...] - 10/30/2022 10:39 AM EDT Cheo Freire [id number] Cheo was admitted to [facility] 10/25-10/29 for fevers and neutropenia. Missed his pita apt that Shayy Jarrett APRN was going to do last week. [facility] Cycle 1 10/18. Cycle 2- scheduled [...] 10:00 AM EDT Office Visit Hematology/Oncology at [address] [phone] Adrianne Ramon MD [facility] DR HEMATOLOGY [place] [address] Yael Merlos APRN [facility] DR HEMATOLOGY [place] [address] 10/03/2023 10:30 AM EDT Infusion Hematology Oncology at [address] [phone] 10/10/2023 2:45 PM EDT Appointment XRay at [address] [place] [address] Micha Givens Jr., MD [facility] HEMATOLOGY [place] [address] 10/10/2023 3:00 PM EDT Appointment Non-[place] [address] 10/10/2023 3:30 PM EDT Appoint[place] [address] 10/11/2023 8:30 AM EDT Infusion Hematology Oncology at [address] [address] documented as of this encounter Visit Diagnoses Not on filedocumented in this encounter Care Teams Fatback Trimmer Relationship Specialty Start Date End Date Frederick Meade MD [address] [place] [address] PCP - General Family Medicine 11/29/17 documented as of this encounter
--- OUTSIDE RECORDS SUMMARY | 2023-10-03 03:14 | XMS_ITS | Encounter Summary ---
Author Organization [facility] Address [facility] [address] Care Team Providers Care Flare Worker Name Role Phone Frederick Meade MD Primary Care Provider +1 -[phone] Encounter Details Date Type Department Care Team (Late st Contact Info) Description 12/06/2022 2:30 PM EDT TH Visit (TeleHealth) Hematology/Oncology at [address] [address] Adrianne Ramon MD [facility] DR [place] [address] Diffuse large B-cell lymphoma of lymph nodes [...] - 12/06/2022 3:30 PM EDT Hematology Clinic [facility] [place] [id number] HEMATOLOGY PATIENT EVALUATION Patient Active Problem List [...] ~2 weeks ago saw [facility] and when to [facility]. [facility] beds [facility] [...] - unclear cause. - last COLO at [facility] was 01/17/2012. INTERIM HISTORY OF PRESENT ILLNESS: [...] and needle of cervical LN. FISH from [place] No MYCrearrangement and no fusion of MYC [...] only 1 biologic. Son Cheo Freire. Enjoys [employer], [employer], [employer], [employer]ike X[employer]. [employer]. 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 Not a . ETOH: 1-3 beers per week Smoking: Quit 1985. Approximately 19-mxrt-ptim history Vaping or electronic cigarettes: denies Chewing [...] is a delightful 72-year old male in [facility]. He is accompanied to the [...] and BCL-2 protein (Double Expressor.) Flow cytometry ([id number]) supports this interpretation. FISH from [place] No MYC rearrangement and no fusion of MYC and IGH was observed, CD3 (SP7, Thermo Scientific) Background T-cells CD20 (L26, Dresbach) diffusely positive in Neoplastic B-cells PAX-5 (1EW, Leica) diffusely positive in Neoplastic B-cells CD10 (SP67, Dresbach) Negative BCL-6 (G/191E/A8, Dresbach) Positive MUM-1 (MUM1p, Dako) Positive Myc (Y69, Abcam) Positive BCL-2 Oncoprotein (124, Dresbach) Positive Ki67 (MIB-1) (K2, Leica) Greater than 95% of cells in cycle Cyclin D1(SP4-R, Dresbach) Negative SAPPHIRE JOSE (SKF6284-J, Leica) Negative. DIAGNOSTICS: 11/28/22 ECHO after C#2 [...] undergo investigation with ultrasound. CT CAP at [facility], report and images have been requested. [...] last ECHO on 11/28/22) Next ECHO at [facility] on 01/25/23 Suspected MEHNAZ - Hgb drop 3gm in last 2 weeks. No overt bleeding. Taking oral iron bid. 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 No COLO in last 10 years. [...] Jan 2023 - booked for 01/25/23 at [facility] Stop iron, not MEHNAZ, has anemia of [...] 10:00 AM EDT Office Visit Hematology/Oncology at [address] [phone] Adrianne Ramon MD [facility] HEMATOLOGY [place] [address] Yael Merlos APRN [facility] HEMATOLOGY [place] [address] 10/03/2023 10:30 AM EDT Infusion Hematology Oncology at [address] [phone] 10/10/2023 2:45 PM EDT Appointment XRay at [address] [place] [address] Micha Givens Jr., MD [facility] DR HEMATOLOGY [place] [address] 10/10/2023 3:00 PM EDT Appointment Non-[place] [phone] 10/10/2023 3:30 PM EDT Appointment [place] [address] 10/11/2023 8:30 AM EDT Infusion Hematology Oncology at [address] [phone] documented as of this encounter Procedures Procedure [...] regions documented in this encounter Care Teams Flare Worker Relationship Specialty Start Date End Date Frederick Meade MD [address] [place] [address] PCP - General Family Medicine 11/29/17 documented as of this encounter
--- OUTSIDE RECORDS SUMMARY | 2023-10-03 03:14 | XMS_ITS | Encounter Summary ---
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 of multiple regions Procedures NM PET CT Standard Plus Extremities and Head Yael Merlos APRN [facility] [address] [place] [address] [place] [address] Referral ID Status Reason Start Date Expiration Date V isits Requested Visits Authorized [id number] Closed Specialty Service Requested 12/20/2022 06/19/2024 1 1 Reason for Visit * Diagnostic Test (Routine) - Closed Specialty Diagnoses / Procedures Referred By Contac t Referred To Contact Radiology Diagnoses 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 HealthboxTOUCH ULTRA BLUE TEST STRIP Strip USE TO [...] Chewable Take 325 mg by mouth daily. vancomycin (Vancocin) 125 [...] 10:00 AM EDT Office Visit Hematology/Oncology at [address] [address] Adrianne Ramon MD [facility] [place] [address] Yael Merlos APRN [facility] [place] [address] 10/03/2023 10:30 AM EDT Infusion Hematology Oncology at [address] [address] 10/10/2023 2:45 PM EDT Appointment XRay at [address] [place] [address] Micha Givens Jr., MD [facility] [place] [address] 10/10/2023 3:00 PM EDT Appointment Non[place] [address] 10/10/2023 3:30 PM EDT App[place] [address] 10/11/2023 8:30 AM EDT Infusion Hematology Oncology at [address] [address] documented as of this encounter Procedures Procedure [...] who have questions please contact the health ambulatory care that requested your imaging first. ? Electronically signed by: Fletcher Duckworth MD, [facility] ([phone]), at 01/05/2023 9:50 AM Narrative 01/05/2023 9:50 AM EST EXAMINATION: NM PET CT STANDARD PLUS EXTREMITIES AND HEAD CLINICAL HISTORY: Hematologic malignancy, assess treatment response Non-Hodgkin lymphoma TECHNIQUE: Procedure: Following IV injection of 84-fndagm-3-deoxyglucose (FDG) a standard uptake of approximately 60 [...] lymphoma TECHNIQUE: Procedure: Following IV injection of 72-tdndsm-9-deoxyglucose(FDG) a standard uptake of approximately 60 minutes, [...] of the left upper lobe (image 131 [id number]). These foci are new since the prior [...] patients who have questions please contactthe health ambulatory care that requested your imaging first. Electronically signed by: Fletcher Duckworth MD, [facility]([phone]), at 01/05/2023 9:50 AM Yael Merlos APRN IMG PET ORDERABLES documented in this encounter [...] Arm documented in this encounter Care Teams Dba Relationship Specialty Start Date End Date Frederick Meade MD [address] [place] [address] [address] [facility] 1 [place] [address] PCP - General Family Medicine 11/29/17 documented as of this encounter
--- OUTSIDE RECORDS SUMMARY | 2023-10-03 03:14 | XMS_ITS | Encounter Summary ---
Author Organization [facility] [place] [address] Care Team Providers Care Order Picker/Assembler Name Role Phone Frederick Meade MD Primary Care Provider +1 -[phone] Encounter Details Date Type Department Care Team [...] AM EDT Office Visit Hematology/Oncology at [address] [phone] Adrianne Ramon MD [facility] [address] [place] [address] Yael Merlos APRN [facility] [place] [address] 10/03/2023 10:30 AM EDT Infusion Hematology Oncology at [address] [phone] 10/10/2023 2:45 PM EDT Appointment XRay at [address] [place] [address] Micha Givens Jr., MD [facility] [place] [address] 10/10/2023 3:00 PM EDT Appointment Non-[place] [address] 10/10/2023 3:30 PM EDT Appointment [place] [address] 10/11/2023 8:30 AM EDT Infusion Hematology Oncology at [address] [phone] documented as of this encounter Visit Diagnoses Not on filedocumented in this encounter Care Teams Order Picker/Assembler Relationship Specialty Start Date End Date Frederick Meade MD [address] [facility] 1 [place] [address] PCP - General Family Medicine 11/29/17 documented as of this encounter
--- OUTSIDE RECORDS SUMMARY | 2023-10-03 03:14 | XMS_ITS | Encounter Summary ---
Author Organization [facility] [place] [address] Care Team Providers Care K9 Handler Name Role Phone Frederick Meade MD Primary Care Provider +1 -[phone] Encounter Details Date Type Department Care Team [...] AM EDT Office Visit Hematology/Oncology at [address] [phone] Adrianne Ramon MD [facility] [place] [address] Yael Merlos APRN [facility] [place] [address] 10/03/2023 10:30 AM EDT Infusion Hematology Oncology at [address] [phone] 10/10/2023 2:45 PM EDT Appointment XRay at [address] [place] [address] Micha Givens Jr., MD [facility] [place] [address] 10/10/2023 3:00 PM EDT Appointment Non-Invasive [place] [address] 10/10/2023 3:30 PM EDT Appointment [place] [address] 10/11/2023 8:30 AM EDT Infusion Hematology Oncology at [address] [phone] documented as of this encounter Visit Diagnoses Not on filedocumented in this encounter Care Teams K9 Handler Relationship Specialty Start Date End Date Frederick Meade MD [address] [facility] 1 [place] [address] PCP - General Family Medicine 11/29/17 documented as of this encounter
--- OUTSIDE RECORDS SUMMARY | 2023-10-03 03:14 | XMS_ITS | Encounter Summary ---
Author Organization [facility] [place] [address] Care Team Providers Care Edge Grinder Machine Name Role Phone Frederick Meade MD Primary Care Provider +1 -[phone] Encounter Details Date Type Department Care Team [...] AM EDT Office Visit Hematology/Oncology at [address] [phone] Adrianne Ramon MD [facility] [place] [address] Yael Merlos APRN [facility] [place] [address] 10/03/2023 10:30 AM EDT Infusion Hematology Oncology at [address] [phone] 10/10/2023 2:45 PM EDT Appointment XRay at [address] [place] [address] Micha Givens Jr., MD [facility] [place] [address] 10/10/2023 3:00 PM EDT Appointment Non-Invasive [place] [phone] 10/10/2023 3:30 PM EDT Appointment [place] [address] 10/11/2023 8:30 AM EDT Infusion Hematology Oncology at [address] [phone] documented as of this encounter Visit Diagnoses Not on filedocumented in this encounter Care Teams Edge Grinder Machine Relationship Specialty Start Date End Date Frederick Meade MD [address] [facility] 1 [place] [address] PCP - General Family Medicine 11/29/17 documented as of this encounter
--- OUTSIDE RECORDS SUMMARY | 2023-10-03 03:14 | XMS_ITS | Encounter Summary ---
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 [...] AM EDT Office Visit Hematology/Oncology at [address] [phone] Adrianne Ramon MD [facility] HEMATOLOGY [place] [address] Yael Merlos APRN [facility] HEMATOLOGY [place] [address] 10/03/2023 10:30 AM EDT Infusion Hematology Oncology at [address] [phone] 10/10/2023 2:45 PM EDT Appointment XRay at [address] [place] [address] Micha Givens Jr., MD [facility] HEMATOLOGY [place] [address] 10/10/2023 3:00 PM EDT Appointment Non-[place] [address] 10/10/2023 3:30 PM EDT Appoint[place] [address] 10/11/2023 8:30 AM EDT Infusion Hematology Oncology at [address] [address] documented as of this encounter Procedures Procedure [...] regions documented in this encounter Care Teams Laser Technician Relationship Specialty Start Date End Date Frederick Meade MD [address] [place] [address] PCP - General Family Medicine 11/29/17 documented as of this encounter
--- OUTSIDE RECORDS SUMMARY | 2023-10-03 03:14 | XMS_ITS | Encounter Summary ---
Author Organization [facility] [place] [address] Care Team Providers Care Supervising Deputy Name Role Phone Frederick Meade MD Primary Care Provider +1 -[phone] Encounter Details Date Type Department Care Team (Late st Contact Info) Description 11/16/2022 Telephone Hematology/Oncology at [address] [phone] Brenda Priest, RN Social History [...] Call: Received call from OSCAR Marcelo at [facility] notifying us that patient was admitted [facility] yesterday and is positive for C-Diff. Dr. Ramon and Yael Merlos APRN updated via this note. documented in this encounter Plan of Treatment Upcoming Encounters Date Type Department Care Team (Late st Contact Info) Description 10/03/2023 10:00 AM EDT Office Visit Hematology/Oncology at [address] [address] Adrianne Ramon MD [facility] HEMATOLOGY [place] [address] Yael Merlos APRN [facility] HEMATOLOGY [place] [address] 10/03/2023 10:30 AM EDT Infusion Hematology Oncology at [address] [address] 10/10/2023 2:45 PM EDT Appointment XRay at [address] [place] [address] Micha Givens Jr., MD [facility] DR HEMATOLOGY AND [place] [address] 10/10/2023 3:00 PM EDT Appointment Non-[place]vasive [place] [address] 10/10/2023 3:30 PM EDT Appointment [place] [address] 10/11/2023 8:30 AM EDT Infusion Hematology Oncology at [address] [address] documented as of this encounter Visit Diagnoses Not on filedocumented in this encounter Care Teams Supervising Deputy Relationship Specialty Start Date End Date Frederick Meade MD [address] [address] PCP - General Family Medicine 11/29/17 documented as of this encounter
--- OUTSIDE RECORDS SUMMARY | 2023-10-03 03:14 | XMS_ITS | Encounter Summary ---
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 of multiple regions Procedures NM PET CT Standard Plus Extremities and Head Yael Merlos APRN [facility] [place] [address] [place] [address] Referral ID Status Reason Start Date Expiration Date V isits Requested Visits Authorized [id number] Closed Specialty Service Requested 12/20/2022 06/19/2024 1 1 Reason for Visit * Reason Comments Follow-up Chemotherapy Encounter Details Date Type Department Care Team (Late st Contact Info) Description 12/20/2022 8:30 AM EDT Office Visit Hematology/Oncology at [address] [address] Adrianne Ramon MD [facility] [place] [address] Yael Merlos APRN [facility] [place] [address] 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. No beds so sent to [facility] for [address] CAP, MRI,and [...] x7 days with nice response. Pathology from [facility] reports large B-cell lymphoma. Double expresser. FISH for translocations are pending. Tongue swelling. No wt loss. Eating and drinking OK. No fevers, infections, No NS. Pain in neck.Prednisone 60mg daily X 7 days. I feel great on prednisone last day of prednisone is today Took iron supplements per PCP - unclear cause. - last COLO at [facility] was 01/17/2012. INTERIM HISTORY OF PRESENT ILLNESS: [...] and needle of cervical LN. FISH from [place] No MYCrearrangement and no fusion of MYC [...] only 1 biologic. Son Cheo Freire. Enjoys [employer], movies, race car, cards. [employer]. 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 Not a . ETOH: 1-3 beers per week Smoking: Quit 1985. Approximately 58-begk-gfxd history Vaping or electronic cigarettes: denies Chewing [...] is a delightful 72-year old male in [facility]. He is accompanied to the clinic [...] and BCL-2 protein (Double Expressor.) Flow cytometry ([id number]) supports this interpretation. FISH from [place] No MYC rearrangement and no fusion of MYC and IGH was observed, CD3 (SP7, Thermo Scientific) Background T-cells CD20 (L26, [place]) diffusely positive in Neoplastic B-cells PAX-5 (1EW, Leica) diffusely positive in Neoplastic B-cells CD10 (SP67, [place]) Negative BCL-6 (G/191E/A8, [place]) Positive MUM-1 (MUM1p, [place]ako) Positive Myc (Y69, Abcam) Positive BCL-2 Oncoprotein (124, [place]) Positive Ki67 (MIB-1) (K2, Leica) Greater than 95% of cells in cycle Cyclin D1(SP4-R, [place]) Negative SAPPHIRE JOSE ([id number], Leica) Negative. DIAGNOSTICS: 11/28/22 ECHO after C#2 [...] undergo investigation with ultrasound. CT CAP at [facility], report and images have been [...] Jan 2023 - booked for 01/25/[address] [facility] Recommend COVID vaccine though he is aware that he may not have a robust response due to ongoing chemotherapy with B-cell depletion. He has already received influenza vaccine. I discussed all of the above with the patient and all of his questions were answered. Support and counseling as appropriate. Yael Merlos, MSN, TERRITORY SALES MANAGER MEDICAL Nurse practitioner Section of Hematology Copy Frederick Meade MD documented in this encounter Plan of Treatment Upcoming Encounters Date Type Department Care Team (Late st Contact Info) Description 10/03/2023 10:00 AM EDT Office Visit Hematology/Oncology at [address] [address] Adrianne Ramon MD [facility] HEMATOLOGY AND [place] [address] Yael Merlos APRN [facility] HEMATOLOG[facility] [place] [address] 10/03/2023 10:30 AM EDT Infusion Hematology Oncology at [address] [address] 10/10/2023 2:45 PM EDT Appointment XRay at [address] [place] [address] Micha Givens Jr., MD [facility] HEMATOLOGY [place] [address] 10/10/2023 3:00 PM EDT Appointment Non-Invasive Cardiology Lab [facility] [place] [phone] 10/10/2023 3:30 PM EDT [place]ment [place] [phone] 10/11/2023 8:30 AM EDT Infusion Hematology Oncology at [address] [phone] documented as of this encounter Procedures Procedure [...] have questions please contact the health career development counselor that requested your imaging first. ? Narrative 01/05/2023 9:50 AM EST EXAMINATION: NM PET CT STANDARD PLUS EXTREMITIES AND HEAD CLINICAL HISTORY: Hematologic malignancy, assess treatment response Non-Hodgkin lymphoma TECHNIQUE: Procedure: Following IV injection of 30-edrftv-2-deoxyglucose (FDG) a standard uptake of approximately 60 [...] lymphoma TECHNIQUE: Procedure: Following IV injection of 39-lbtrnq-3-deoxyglucose(FDG) a standard uptake of approximately 60 minutes, [...] of the left upper lobe (image 131 [id number]). These foci are new since the prior [...] who have questions please contactthe health career development counselor that requested your imaging first. Yael Merlos TERRITORY SALES MANAGER MEDICAL IMG PET ORDERABLES * Comprehensive metabolic panel (non-fasting) (12/20/2022) Pathologist [facility] Creatinine 0.9 Potassium 3.4 Bilirubin, Total 0.2 Aspartate Aminotransferase 15 Alanine Aminotransferase 19 Lactate Dehydrogenase 174 Iron 33 TIBC 197 Iron Saturation 17 Ferritin 279 Blood 12/20/2022 Historical Provider CHEMISTRY ORDERAB LES * CBC (with Diff) (12/20/2022) White Blood Cell 8 Hemoglobin 9.8 Hematocrit 30.3 Platelet 264 ANC 5.61 Blood 12/20/2022 Historical Provider HEMATOLOGY ORDERA BLES documented in this encounter Visit Diagnoses Diagnosis 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
--- OUTSIDE RECORDS SUMMARY | 2023-10-03 03:14 | XMS_ITS | Encounter Summary ---
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 of multiple regions Procedures NM PET CT Standard Plus Extremities and Head Yael Merlos REVIEW SCHEDULING COORDINATOR [facility] [place] [address] [place] [address] Referral ID Status Reason Start Date Expiration Date V isits Requested Visits Authorized [id number] Closed Specialty Service Requested 12/20/2022 06/19/2024 1 1 Encounter Details Date Type Department Care Team (Latest Contact Info) Description 01/05/2023 7:19 AM EST - 01/05/2023 11:59 PM [facility] Hospital Encounter [place] [address] Yael Merlos REVIEW SCHEDULING COORDINATOR [facility] [place] [address] Discharge Disposition: Home Social History [...] tablet Take 5 mg by mouth daily. [employer] Network[employer]CH ULTRA BLUE TEST STRIP Strip USE TO [...] AM EDT Office Visit Hematology/Oncology at [address] [phone] Adrianne Ramon MD [facility] DR [place] [address] Yael Merlos APRN [facility] [place] [address] 10/03/2023 10:30 AM EDT Infusion Hematology Oncology at [address] [address] 10/10/2023 2:45 PM EDT Appointment XRay at [address] [place] [address] Micha Givens Jr., MD [facility] DR HEMATOLOGY [place] [address] 10/10/2023 3:00 PM EDT Appointment Non-[place]vasive [place] [address] 10/10/2023 3:30 PM EDT Appointment [place] [address] 10/11/2023 8:30 AM EDT Infusion Hematology Oncology at [address] [phone] documented as of this encounter [...] Glucose, POC 124 65 - 199 mg/dL [facility] Comment: Supplemental ranges: <140 mg/dL before meals <180 mg/dL all other times of the day Blood 01/05/2023 7:26 AM EST 01/05/2023 7:26 AM EST aYel Merlos REVIEW SCHEDULING COORDINATOR POINT OF CARE TEST ORDERABLES [facility] [place] [address] documented in this encounter Visit Diagnoses Not on filedocumented in this encounter Care Teams Canal Superintendent Relationship Specialty Start Date End Date Frederick Meade MD [address] [place] [address] PCP - General Family Medicine 11/29/17 documented as of this encounter
--- OUTSIDE RECORDS SUMMARY | 2023-10-03 03:14 | XMS_ITS | Encounter Summary ---
Author Organization [facility] Address [facility] [place] [address] Care Team Providers Care Electric Blanket Wirer Name Role Phone Frederick Meade MD Primary Care Provider [phone] [phone] Encounter Details Date Type Department Care Team (Late st Contact Info) Description 11/08/2022 Notes Only Hematology/Oncology at [address] [address] Shelley Cason, [facility] OFFICE OF CARE MANAGEMENT Social History Tobacco [...] needs today. Offered support. Reminded Cheo of DECKER OPERATOR availability and will continue to follow as indicated. Brief assessment Supportive Counseling documented in this encounter Plan of Treatment Upcoming Encounters Date Type Department Care Team (Late st Contact Info) Description 10/03/2023 10:00 AM EDT Office Visit Hematology/Oncology at [address] [phone] Adrianne Ramon MD [facility] DR [place] [address] Yael Merlos APRN [facility] [place] [address] 10/03/2023 10:30 AM EDT Infusion Hematology Oncology at [address] [phone] 10/10/2023 2:45 PM EDT Appointment XRay at [address] [place] [address] Micha Givens Jr., MD [facility] DR HEMATOLOGY [place] [address] 10/10/2023 3:00 PM EDT Appointment Non-[place] [address] 10/10/2023 3:30 PM EDT Appointment [place] [address] 10/11/2023 8:30 AM EDT Infusion Hematology Oncology at [address] [phone] documented as of this encounter Visit Diagnoses Not on filedocumented in this encounter Care Teams Electric Blanket Wirer Relationship Specialty Start Date End Date Frederick Meade MD [address] [place] [address] [address] [facility] [address] [place] [address] PCP - General Family Medicine 11/29/17 documented as of this encounter
--- OUTSIDE RECORDS SUMMARY | 2023-10-03 03:14 | XMS_ITS | Encounter Summary ---
Author Organization [facility] Address [facility] [place] [address] Care Team Providers Care Costume Director Name Role Phone Frederick Meade MD Primary Care Provider [phone] [phone] Encounter Details Date Type Department Care Team (Late st Contact Info) Description 10/18/2022 Notes Only Hematology/Oncology at [address] [phone] Shelley Cason, [facility] OFFICE OF CARE MANAGEMENT [...] this encounter Progress Notes * Shelley Cason, LEARN TO SWIM INSTRUCTOR - 10/18/2022 11:54 AM EDT Reason for Referral: Brief assessment of social and emotional needs. Met with Cheo, his Claritza and his son Cheo during his first infusion visit today to introduce myself and role of clinical social work aide to assess/address barriers to getting to and [...] Advance care planning Plan: Informed pt of LEARN TO SWIM INSTRUCTOR availability and contact information. Will follow to assess/address psychosocial needs. FRANCISOC J Wisdom, COMMUNICATIONS TECH, OSW-C Tow Picker [facility] documented in this encounter Plan of Treatment Upcoming Encounters Date Type Department Care Team (Late st Contact Info) Description 10/03/2023 10:00 AM EDT Office Visit Hematology/Oncology at [address] [phone] Adrianne Ramon MD [facility] [address] [place] [address] Yael Merlos APRN [facility] [place] [address] 10/03/2023 10:30 AM EDT Infusion Hematology Oncology at [address] [phone] 10/10/2023 2:45 PM EDT Appointment XRay at [address] [place] [address] Micha Givens Jr., MD [facility] [address] [place] [address] 10/10/2023 3:00 PM EDT Appointment Non[place] [address] 10/10/2023 3:30 PM EDT Appointment [place] [address] 10/11/2023 8:30 AM EDT Infusion Hematology Oncology at [address] [phone] documented as of this encounter Visit Diagnoses Not on filedocumented in this encounter Care Teams Costume Director Relationship Specialty Start Date End Date Frederick Meade MD [address] [place] [address] PCP - General Family Medicine 11/29/17 documented as of this encounter
--- OUTSIDE RECORDS SUMMARY | 2023-10-03 03:14 | XMS_ITS | Encounter Summary ---
Author Organization [facility] Address [facility] [place] [address] Care Team Providers Care Weight Engineer Name Role Phone Frederikc Meade MD Primary Care Provider [phone] [phone] Reason for Visit * Consultation (Urgent) - Closed Specialty Diagnoses / Procedures Referred By Contac t Referred To Contact Cardiology Diagnoses Diffuse large B-cell lymphoma of lymph nodes of multiple regions CARD-ONC Pt w/o cardiac hx. New lymphoma. Needs anthracycline. Echo w/ EF 49% & mild global hypokinesis. Please eval for ongoing anthracycline safety. Adrianne Ramon MD [facility] HEMATOLOGY [place] [address] Chalo Barbosa MD [facility] [place] [address] Referral ID Status Reason Start Date Expiration Date V isits Requested Visits Authorized [id number] Closed Consult, Test & Treat 10/12/2022 10/12/2023 1 1 Encounter Details Date Type Department Care Team (Latest Contact Info) Description 11/06/2022 2:10 PM EDT Office Visit Cardiology at [place] [phone] Chalo Barbosa MD [facility] [place] [address] Abnormal echocardiogram Social History Tobacco Use Types [...] from the original note were not included. [facility] Ed [place], [place] [address] CARDIO-ONCOLOGY CONSULTATION Cheo Santos Teressagisell Primary Care [...] Visit from 11/06/2022 in [place] [facility] [place] Visit from 10/18/2022 in Hematology/Oncology at [facility] Weight 93 kg (205 lb) 1 [...] AM EDT Office Visit Hematology/Oncology at [address] [phone] Adrianne Ramon MD [facility] DR HEMATOLOGY [place] [address] Yael Merlos, SALMON TROLL FISHER [facility] HEMATOLOGY [place] [address] 10/03/2023 10:30 AM EDT Infusion Hematology Oncology at [address] [phone] 10/10/2023 2:45 PM EDT Appointment XRay at [address] [place] [address] Micha Givens Jr., MD [facility] HEMATOLOGY [place] [address] 10/10/2023 3:00 PM EDT Appointment Non-[place]vasive [place] [phone] 10/10/2023 3:30 PM EDT Appointment [place] [address] 10/11/2023 8:30 AM EDT Infusion Hematology Oncology at [address] [phone] Scheduled Referrals Name Type Priority Associated Diagnoses Order Schedule Referral to Cardiology Outpatient Referral Urgent Diffuse large B-cell lymphoma of lymph nodes of multiple regions Ordered: 10/12/2022 documented as of this encounter Visit Diagnoses Diagnosis Abnormal echocardiogram Nonspecific (abnormal) findings on radiological and other examination of other intrathoracic organs documented in this encounter Care Teams Weight Engineer Relationship Specialty Start Date End Date Frederick Meade MD [address] [place] [address] PCP - General Family Medicine 11/29/17 documented as of this encounter
--- OUTSIDE RECORDS SUMMARY | 2023-10-03 03:14 | XMS_ITS | Encounter Summary ---
Author Organization [facility] [place] [address] Care Team Providers Care Manager Developmental Name Role Phone Frederick Meade MD Primary Care Provider [phone] [phone] Reason for Visit * Reason Comments Follow-up Encounter Details Date Type Department Care Team (Late st Contact Info) Description 11/22/2022 11:30 AM EDT Office Visit Hematology/Oncology at [address] [phone] Adrianne Ramon MD [facility] DR HEMATOLOGY [place] [address] Yael Merlos, DEWAXER [facility] DR HEMATOLOGY [place] [address] Diffuse large B-cell lymphoma of lymph nodes [...] - 11/22/2022 11:30 AM EDT Hematology Clinic [facility] [place] [address] HEMATOLOGY PATIENT EVALUATION Patient Active Problem List [...] weeks ago saw [facility] in [facility] and when to [facility] No beds so sent to [facility] for [address] CAP, MRI,and [...] x7 days with nice response. Pathology from [facility] reports large B-cell lymphoma. Double [...] has been trying to work through the patient care nursing assistant trying to obtain a supply to complete [...] and needle of cervical LN. FISH from [place] No MYCrearrangement and no fusion of MYC [...] only 1 biologic. Son Cheo Freire. Enjoys [employer], [employer], [employer], [employer]. [employer]. 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 Not a . ETOH: 1-3 beers per week Smoking: Quit 1985. Approximately 88-hgjt-kshg history Vaping or electronic cigarettes: denies Chewing [...] is a delightful 72-year old male in [facility]. He is accompanied to the clinic [...] and BCL-2 protein (Double Expressor.) Flow cytometry ([id number]) supports this interpretation. FISH from [place] No MYC rearrangement and no fusion of MYC and IGH was observed, CD3 (SP7, Thermo Scientific) Background T-cells CD20 (L26, [place]) diffusely positive in Neoplastic B-cells PAX-5 (1EW, Leica) diffusely positive in Neoplastic B-cells CD10 (SP67, [place]) Negative BCL-6 (G/191E/A8, [place]) Positive MUM-1 (MUM1p, Dako) Positive Myc (Y69, Abcam) Positive BCL-2 Oncoprotein (124, [place]) Positive Ki67 (MIB-1) (K2, Leica) Greater than 95% of cells in cycle Cyclin D1(SP4-R, [place]) Negative SAPPHIRE JOSE ([id number], Leica) Negative. DIAGNOSTICS: 11/06/22 ECHO after C#1 [...] images with patient and family. IMPRESSION 1. Jeirlyn involvement by lymphoma in the neck, chest, [...] 2 tabs per day. 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 No COLO in last 10 years. [...] and counseling as appropriate. Yael Merlos, MSN, DEWAXER Nurse practitioner Section of Hematology/Oncology Copy Frederick Meade MD documented in this encounter Plan of Treatment Upcoming Encounters Date Type Department Care Team (Late st Contact Info) Description 10/03/2023 10:00 AM EDT Office Visit Hematology/Oncology at [address] [phone] Adrianne Ramon MD [facility] DR HEMATOLOGY [place] [address] Yael Merlos APRN [facility] HEMATOLOGY [place] [address] 10/03/2023 10:30 AM EDT Infusion Hematology Oncology at [address] [phone] 10/10/2023 2:45 PM EDT Appointment XRay at [address] [place] [address] Micha Givens Jr., MD [facility] HEMATOLOGY [place] [address] 10/10/2023 3:00 PM EDT Appointment Non-[place]vasive [place] [address] 10/10/2023 3:30 PM EDT Appointment [place] [address] 10/11/2023 8:30 AM EDT Infusion Hematology Oncology at [address] [phone] documented as of this encounter Procedures Procedure [...] lung documented in this encounter Care Teams Manager Developmental Relationship Specialty Start Date End Date Frederick Meade MD [address] [place] [address] PCP - General Family Medicine 11/29/17 documented as of this encounter
--- OUTSIDE RECORDS SUMMARY | 2023-10-03 03:15 | XMS_ITS | Encounter Summary ---
[place] [address] Care Team Providers Care Solidworks Designer Name Role Phone Frederick Meade MD Primary Care Provider [phone] [phone] Encounter Details Date Type Department Care Team (Late st Contact Info) Description 10/11/2022 [place] [address] James Champion, [facility] [place] [address] Social History Tobacco Use Types Packs/Day Years [...] access for chemotherapy. IR History: None at [facility]. 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 Tobacco Use Smoking status: Former Packs/day: [...] AM EDT Office Visit Hematology/Oncology at [address] [phone] Adrianne Ramon MD [facility] DR HEMATOLOGY [place] [address] Yael Merlos APRN [facility] DR HEMATOLOGY [place] [address] 10/03/2023 10:30 AM EDT Infusion Hematology Oncology at [address] [phone] 10/10/2023 2:45 PM EDT Appointment XRay at [address] [place] [address] Micha Givens Jr., MD [facility] HEMATOLOGY [place] [address] 10/10/2023 3:00 PM EDT Appointment Non-[place] [address] 10/10/2023 3:30 PM EDT Appoint[place] [address] 10/11/2023 8:30 AM EDT Infusion Hematology Oncology at [address] [phone] documented as of this encounter Visit Diagnoses Not on filedocumented in this encounter Care Teams Solidworks Designer Relationship Specialty Start Date End Date Frederick Meade MD [address] [place] [address] [facility] [place] [address] PCP - General Family Medicine 11/29/17 documented as of this encounter
--- OUTSIDE RECORDS SUMMARY | 2023-10-03 03:15 | XMS_ITS | Encounter Summary ---
Author Organization [facility] [place] [address] Care Team Providers Care Animal Therapist Name Role Phone Frederick Meade MD Primary Care Provider [phone] Encounter Details Date Type Department Care Team (Late Contact Info) Description 09/21/2022 10:05 PM EDT Ancillary Procedure [place] [phone] Thierry Ruiz MD [facility] [place] [address] Social History Tobacco Use Types Packs/Day Years [...] Department Care Team (Late Contact Info) Description 10/03/2023 10:00 AM EDT Office Visit Hematology/Oncology at [address] [phone] Adrianne Ramon MD [facility] HEMATOLOGY [place] [address] Yael Merlos, CLAY SHOP SUPERVISOR [facility] DR HEMATOLOGY [place] [address] 10/03/2023 10:30 AM EDT Infusion Hematology Oncology at [address] [phone] 10/10/2023 2:45 PM EDT Appointment XRay at [address] [place] [phone] Micha Givens Jr., MD [facility] DR HEMATOLOGY [place] [address] 10/10/2023 3:00 PM EDT Appointment Non-Invasive [place] [phone] 10/10/2023 3:30 PM EDT Appoint[place] [phone] 10/11/2023 8:30 AM EDT Infusion Hematology Oncology at [address] [phone] documented as of this encounter Procedures Procedure Name Priority Date/Time Associated Diagnosis Comments FILM LIBRARY STORAGE ONLY CT HEAD AND SPINE Routine 09/21/2022 10:02 PM EDT documented in this encounter Results * Film Library- Storage Only CT Head And Spine (09/21/2022 10:02 PM EDT) Narrative [facility] - 09/21/2022 10:02 PM EDT This exam is auto-finalizing. It's purpose is for storage only. Thierry Ruiz MD IMG FILM LIBRARY ORD ERABLES [place], [place] documented in this encounter Visit Diagnoses Not on filedocumented in this encounter Care Teams Animal Therapist Relationship Specialty Start Date End Date Frederick Meade MD [address] [place] [address] [address] [place] [address] PCP - General Family Medicine 11/29/17 documented as of this encounter
--- OUTSIDE RECORDS SUMMARY | 2023-10-03 03:15 | XMS_ITS | Encounter Summary ---
Author Organization [facility] [place] [address] Care Team Providers Care Office Assistance Name Role Phone Frederick Meade MD Primary Care Provider [phone] Reason for Visit * Treatment/Therapy Plan Authorization [...] TC CYCLOPHOSPHAMIDE, 100MG (CYTOXAN) Adrianne Ramon MD [facility] DR HEMATOLOG[place] [address] [facility] Infusion [address] [place] [address] Referral ID Status Reason Start Date Expiration Date Visits Re quested Visits Authorized [id number] Closed 10/11/2022 10/11/2023 1 100 Encounter Details Date Type Department Care Team (Latest Contact Info) Description 10/17/2022 11:16 AM EDT - 10/17/2022 11:59 PM EDT Hospital Encounter Hematology [place] [address] Diffuse large B-cell lymphoma of [...] Chewable Take 325 mg by mouth daily. loratadine (Claritin) 10 [...] flushed, left accessed for tomorrow infusion at [facility] documented in this encounter Plan of Treatment Upcoming Encounters Date Type Department Care Team (Late st Contact Info) Description 10/03/2023 10:00 AM EDT Office Visit Hematology/Oncology at [address] [phone] Adrinane Ramon MD [facility] DR HEMATOLOGY [place] [address] Yael Merlos APRN [facility] DR [place]AT[place] [address] 10/03/2023 10:30 AM EDT Infusion Hematology Oncology at [address] [phone] 10/10/2023 2:45 PM EDT Appointment XRay at [address] [place] [address] Micha Givens Jr., MD [facility] HEMATOLOGY [place] [address] 10/10/2023 3:00 PM EDT Appointment Non-Invasive [place] [address] 10/10/2023 3:30 PM EDT Appointment [place] [address] 10/11/2023 8:30 AM EDT Infusion Hematology Oncology at [address] [phone] Scheduled Orders Name Type Priority Associated Diagnoses [...] of multiple regions HIV SCREEN, 4TH GENERATION ([facility]/CGP/APD/NLH) STAT 10/17/2022 11:45 AM EDT Diffuse large [...] Peripheral Blood (10/17/2022 11:45 AM EDT) Plat estimate Normal [facility] RBC Morphology Abnormal [facility] Ovalocytes 1-5 /HPF [facility] Tear Cell 1-5 /HPF [facility] Blood 10/17/2022 11:4 5 AM EDT 10/17/2022 12:08 PM EDT Narrative Resulting Agency Comment Spec In Lab Adrianne Ramon MD HEMATOLOGY ORDER DUONG [facility] [place] [address] * (ABNORMAL) Differential, Automated (10/17/2022 11:45 AM EDT) Neutrophil % 68.0 % [facility] Neutrophil Absolute 7.17(H) 1.70 - 6.10 x10(3)/mc L [facility] Lymph % 13.6 % [facility] Lymphocytes Abs 1.4 0.9 - 3.2 x10(3)/mc L [facility] Monocyte % 14.8 % [facility] Monocyte Abs 1.6(H) 0.3 - 0.9 x10(3)/mc L [facility] Eos % 2.8 % [facility] Eosinophils Abs 0.3 0.0 - 0.4 x10(3)/mc L [facility] Basophil % 0.3 % [facility] Baso Absolute 0.0 0.0 - 0.1 x10(3)/mc L [facility] Immature Gran % 0.50 % [facility] Comment: Immature granulocytes(IG's)percentage and absolute count will include metamyelocytes, myelocytes, and promyelocytes. Blood smears from CBCs yielding IG's will be scanned manually for concordance. If this scan disagrees with the automated IG or if promyelocytes are noted, a manual differential will be performed. Immature Gran Absolute 0.05(H) 0.00 - 0.04 x10(3)/ L [facility] Blood 10/17/2022 11:4 5 AM EDT 10/17/2022 12:08 PM EDT Narrative Resulting Agency Comment Spec In Lab Adrianne Ramon MD HEMATOLOGY ORDER DUONG [facility] [place] [address] * (ABNORMAL) Hemogram (10/17/2022 11:45 AM EDT) White Blood Cell 10.6(H) 4.0 - 9.5 x10(3)/mc L [facility] Red Blood Cell 3.68(L) 4.58 - 5.54 x10(6)/mc L [facility] Hemoglobin 11.3(L) 13.7 - 16.5 g/dL [facility] Hematocrit 33.8(L) 40.5 - 48.5 % [facility] Mean Cell Volume 91.8 82.9 - 93.1 fL [facility] Mean Cell Hemoglobin 30.7 27.5 - 32.1 pg [facility] Mean Cell Hemoglobin Concentration 33.4 32.0 - 35.7 g/dL [facility] Platelet 261 145 - 357 x10(3)/mc L [facility] RDW Standard Deviation 49.5(H) 36.0 - 45.0 fL [facility] RDW coefficient of variation 14.6(H) 11.4 - 13.8 % [facility] Mean Platelet Volume 9.4 7.6 - 12.9 fL [facility] NRBC% auto 0.0 % [facility] NRBC Absolute 0.000 0.000 - 0.000 x10(3)/mc L [facility] Blood 10/17/2022 11:4 5 AM EDT 10/17/2022 12:08 PM EDT Narrative Resulting Agency Comment Spec In Lab Adrianne Ramon MD HEMATOLOGY ORDER DUONG Performing Organization Address City/[facility]/ZIP Co de Phone Number [facility] [place] [address] * Hepatitis C Antibody (10/17/2022 11:45 AM EDT) Hepatitis C Antibody Negative Negative [facility] Blood 10/17/2022 11:4 5 AM EDT 10/17/2022 12:08 PM EDT Narrative Resulting Agency Comment Spec In Lab Adrianne Ramon MD CHEMISTRY ORDERA BLES Performing Organization Address [facility] [[email or web address]] Co de Phone Number [facility] [place] [address] * HIV Screen, 4th Generation ([facility]/CGP/APD/NLH) (10/17/2022 11:45 AM EDT) HIV Ab/Ag Screen Negative Negative [facility] Comment: This 4th Generation HIV test [...] HIV Comment Low Risk of HIV Infection [facility] Blood 10/17/2022 11:4 5 AM EDT 10/17/2022 12:08 PM EDT Narrative Resulting Agency Comment Spec In Lab Adrianne Ramon MD CHEMISTRY ORDERA BLES [facility] [place] [address] * Hepatitis B Surface Antibody (10/17/2022 11:45 AM EDT) Hepatitis B Surface Antibody, Quantitative <3.5 IU/L [facility] Comment: HepB Surface Ab Quant: Unvaccinated: < 8.5 IU/L Vaccinated: >= 11.5 IU/L Hepatitis B Surface Antibody Negative [facility] Comment: Patient is presumed to be not vaccinated or immune to HBV infection. Expected Results: Vaccinated: Positive Unvaccinated: Negative Blood 10/17/2022 11:4 5 AM EDT 10/17/2022 12:08 PM EDT Narrative Resulting Agency Comment Spec In Lab Adrianne Ramon MD CHEMISTRY ORDERA BLES Performing Organization Address City/[facility]/ZIP Co de Phone Number [facility] [address] * Hepatitis B Surface Antigen (10/17/2022 11:45 AM EDT) Hepatitis B Surface Antigen Negative Negative [facility] Blood 10/17/2022 11:4 5 AM EDT 10/17/2022 12:08 PM EDT Narrative Resulting Agency Comment Spec In Lab Adrianne Ramon MD CHEMISTRY ORDERA BLES Performing Organization Address City/[facility]/ZIP Co de Phone Number [facility] [place] [address] * Hepatitis B Core Antibody, Total (10/17/2022 11:45 AM EDT) Hepatitis B Core Antibody Negative Negative [facility] Blood 10/17/2022 11:4 5 AM EDT 10/17/2022 12:08 PM EDT Narrative Resulting Agency Comment Spec In Lab Adrianne Ramon MD CHEMISTRY ORDERA BLES [facility] [place] [address] * Uric acid (10/17/2022 11:45 AM EDT) Uric Acid 5.3 3.5 - 8.5 mg/dL [facility] Blood 10/17/2022 11:4 5 AM EDT 10/17/2022 12:08 PM EDT Narrative Resulting Agency Comment Spec In Lab Adrianne Ramon MD CHEMISTRY ORDERA BLES [facility] [place] [address] * Phosphorus (10/17/2022 11:45 AM EDT) Phosphorus 3.2 2.5 - 4.5 mg/dL [facility] Blood 10/17/2022 11:4 5 AM EDT 10/17/2022 12:08 PM EDT Narrative Resulting Agency Comment Spec In Lab Adrianne Ramon MD CHEMISTRY ORDERA BLES [facility] [place] [address] * Magnesium (10/17/2022 11:45 AM EDT) Magnesium 0.78 0.69 - 1.07 mmol/L [facility] Blood 10/17/2022 11:4 5 AM EDT 10/17/2022 12:08 PM EDT Narrative Resulting Agency Comment Spec In Lab Adrianne Ramon MD CHEMISTRY ORDERA BLES [facility] [place] [address] * (ABNORMAL) Lactate Dehydrogenase (10/17/2022 11:45 AM EDT) Lactate Dehydrogenase 251(H) 110 - 220 unit/L [facility] Blood 10/17/2022 11:4 5 AM EDT 10/17/2022 12:08 PM EDT Narrative Resulting Agency Comment Spec In Lab Adrianne Ramon MD CHEMISTRY ORDERA ANA ROSA [facility] [place] [address] * Comprehensive metabolic panel (non-fasting) (10/17/2022 11:45 AM EDT) Glucose 110 65 - 199 mg/dL [facility] Comment:Diabetes: >=200 mg/d L plus symptoms Blood Urea Nitrogen 17 10 - 20 mg/dL [facility] Creatinine 1.07 0.80 - 1.50 mg/dL [facility] Sodium 139 135 - 145 mmol/L [facility] Potassium 3.6 3.5 - 5.0 mmol/L [facility] Comment: Please note: ??Patients with WBC >100,000 may have falsely elevated Potassium levels. ??For accurate Potassium quantification in these patients send serum separator tube (gold top) for subsequent determinations. ??Contact the Clinical Chemistry Laboratory if there are any questions. Chloride 105 98 - 107 mmol/L [facility] Carbon Dioxide 23 22 - 31 mmol/L [facility] Anion Gap 11 5 - 15 mmol/L [facility] Calcium 8.9 8.5 - 10.5 mg/dL [facility] Protein, Total 6.2 6.1 - 8.0 g/dL [facility] Albumin 3.6 3.2 - 5.2 g/dL [facility] Aspartate Aminotransferase 14 0 - 39 unit/L [facility] Alanine Aminotransferase 27 0 - 55 unit/L [facility] Alkaline Phosphatase 103 40 - 130 unit/L [facility] Bilirubin, Total 0.4 0.2 - 1.3 mg/dL [facility] Est Glomerular Filtration Rate 73 >=60 mL/min/1. 73 m?? [facility] Comment: This patient's estimated GFR was [...] In Lab Adrianne Ramon MD CHEMISTRY ORDERA ANA ROSA [facility] [place] [address] documented in this encounter Visit Diagnoses Diagnosis [...] Job Aid: Adult Flushing & Catheter Care (5521) job aid for additional information regarding guidelines [...] Job Aid: Adult Flushing & Catheter Care (3378) job aid for additional information regarding guidelines and administration., Routine Given 10/17/2022 12:11 PM EDT 20 mLs documented in this encounter Care Teams Office Assistance Relationship Specialty Start Date End Date Frederick Meade MD [address] [place] [address] [address] [place] [address] PCP - General Family Medicine 11/29/17 documented as of this encounter
--- OUTSIDE RECORDS SUMMARY | 2023-10-03 03:15 | XMS_ITS | Encounter Summary ---
[place] [address] Care Team Providers Care Custom Frame Assembler Name Role Phone Frederick Meade MD Primary Care Provider [phone] Reason for Visit * Reason Comments Radiation Follow-up prostate cancer Encounter Details Date Type Department Care Team (Late st Contact Info) Description 11/29/2017 1:45 PM EDT Office Visit Radiation Oncology at [address] [phone] Anna Carr [address] [place] [address] Malignant neoplasm of prostate Social [...] Visit from 11/29/2017 in Radiation Oncology at [facility] Weight 93.2 kg (205 lb 6.4 [...] prostate cancer with pretreatment PSA of 5.4 [place] 4+3=7. He was treated with external beam [...] elevated at 5.4 with only 9% free. [place] with Dr. 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 Smoking [...] Visit from 11/29/2017 in Radiation Oncology at [facility] Weight 93.2 kg (205 lb 6.4 [...] prostate cancer with pretreatment PSA of 5.4 [place] 4+3=7. He was treated with external beam [...] AM EDT Office Visit Hematology/Oncology at [address] [phone] Adrianne Ramon MD [facility] HEMATOLOGY [place] [address] Yael Merlos APRN [facility] [place] [address] 10/03/2023 10:30 AM EDT Infusion Hematology Oncology at [address] [phone] 10/10/2023 2:45 PM EDT Appointment XRay at [address] [place] [address] Micha Givens Jr., MD [facility] HEMATOLOGY [place] [address] 10/10/2023 3:00 PM EDT Appointment Non-Invasive Cardiology [place] [address] 10/10/2023 3:30 PM EDT Appointment [place] [address] 10/11/2023 8:30 AM EDT Infusion Hematology Oncology at [address] [phone] documented as of this encounter Procedures Procedure [...] prostate documented in this encounter Care Teams Custom Frame Assembler Relationship Specialty Start Date End Date Frederick Meade MD [address] [place] [address] PCP - General Family Medicine 11/29/17 documented as of this encounter
--- OUTSIDE RECORDS SUMMARY | 2023-10-03 03:15 | XMS_ITS | Encounter Summary ---
Author Organization [facility] [place] [address] Care Team Providers Care News Production Supervisor Name Role Phone Frederick Meade MD Primary Care Provider [phone] Reason for Referral * Diagnostic Test (Routine) - Closed Specialty Diagnoses / Procedures Referred By Contac t Referred To Contact Radiology Diagnoses Non-Hodgkin lymphoma of lymph nodes of multiple regions, unspecified non-Hodgkin lymphoma type Diffuse large B-cell lymphoma of lymph nodes of multiple regions Procedures NM PET CT Standard Plus Extremities and Head Adrianne Ramon MD [facility] DR HEMATOLOG[place] [address] [place] [address] Referral ID Status Reason Start Date Expiration Date V isits Requested Visits Authorized [id number] Closed Specialty Service Requested 10/10/2022 04/12/2024 1 [...] Plus Extremities and Head Adrianne Ramon MD [facility] DR HEMATOLOGY [place] [address] [facility] [place] [address] Referral ID Status Reason Start Date Expiration Date V isits Requested Visits Authorized [id number] Closed Specialty Service Requested 10/10/2022 04/12/2024 1 2 Encounter Details Date Type Department Care Team (Late st Contact Info) Description 10/12/2022 10:26 AM EDT - 10/12/2022 11:59 PM EDT Hospital Encounter [place] [phone] Adrianne Ramon MD [facility] DR HEMATOLOGY [place] [address] Non-Hodgkin lymphoma of lymph nodes [...] Chewable Take 325 mg by mouth daily. predniSONE (Deltasone) 20 [...] 10:00 AM EDT Office Visit Hematology/Oncology at [address] [phone] Adrianne Ramon MD [facility] HEMATOLOGY [place] [address] Yael Merlos, LEGAL DOCUMENT ASSISTANT [facility] [place]EMATOLOGY [place] [address] 10/03/2023 10:30 AM EDT Infusion Hematology Oncology at [address] [phone] 10/10/2023 2:45 PM EDT Appointment XRay at [address] [place] [address] Micha Givens Jr., MD [facility] HEMATOLOGY [place] [address] 10/10/2023 3:00 PM EDT Appointment Non-Invasive [place] [address] 10/10/2023 3:30 PM EDT Appointment [place] [address] 10/11/2023 8:30 AM EDT Infusion Hematology Oncology at [address] [phone] documented as of this encounter Procedures Procedure [...] questions please contact the health critical care physician that requested your imaging first. ? Narrative 10/12/2022 3:23 PM EDT EXAMINATION: NM PET CT STANDARD PLUS EXTREMITIES AND HEAD CLINICAL HISTORY: Non-Hodgkin lymphoma, staging new large B cell lymphoma - involving oropharynx/ cervical. ??staging. TECHNIQUE: Procedure: Following IV injection of 99-gfagot-8-deoxyglucose (FDG) a standard uptake of approximately 60 [...] staging. TECHNIQUE: Procedure: Following IV injection of 60-jngswz-6-deoxyglucose(FDG) a standard uptake of approximately 60 minutes, [...] have questions please contactthe health critical care physician that requested your imaging first. Adrianne Ramon [...] mCi documented in this encounter Care Teams News Production Supervisor Relationship Specialty Start Date End Date Frederick Meade MD [address] [place] [address] PCP - General Family Medicine 11/29/17 documented as of this encounter
--- OUTSIDE RECORDS SUMMARY | 2023-10-03 03:15 | XMS_ITS | Encounter Summary ---
[place] [address] Care Team Providers Care Slip Bridge Operator Name Role Phone Bobby Headley MD Primary Care Provider [phone] Reason for Visit * Reason Comments Radiation Follow-up prostate cancer Encounter Details Date Type Department Care Team (Late st Contact Info) Description 05/31/2017 11:15 AM EDT Office Visit Radiation Oncology at [address] [phone] Anna Carr [address] RADIATION ONCOLOGY [place], [place] [id number] Malignant neoplasm of prostate Social History Tobacco [...] Visit from 05/31/2017 in Radiation Oncology at [facility] Weight 91.7 kg (202 lb 3.2 oz) [...] prostate cancer with pretreatment PSA of 5.4 [place] 4+3=7. He was treated with external beam [...] elevated at 5.4 with only 9% free. [place] with Dr. Vergara July 2014 who offered biopsy which was performed 09/01/14, demonstrating Gleason4 + 3 disease in a single core at the right apex. Forty-five percent of that core did appear to be involved. Perineural invasion was not seen. Pathology had been reviewed here at [facility]. The patient is here today to [...] the prostate Field orientation: Dynamic arc VMAT Rock Splitter Target Coverage (70Gy isodose line indicated): Hormone [...] Biopsy 09/01/2014 Volume in cc 15 cc [place] grade/score a+b=c 4+3=7-- intermediate risk prostate cancer [...] education: N/A Occupational History ??? 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 [...] sporting events. He will be going to [place] in September to attend a [employer] tournament. He feels he is coping well. [...] Visit from 05/31/2017 in Radiation Oncology at [facility] Weight 91.7 kg (202 lb 3.2 oz) [...] content normal. Vitals reviewed. 05/24/2017 labs CA=9.3, TRE=339, BUN=37, CREAT=1.45, EGFR=48.25, XZ=404, K=3.4, VA=915, CO2=25.1, MG=2.0 Date PSA testosterone 05/23/2017 < [...] prostate cancer with pretreatment PSA of 5.4 [place] 4+3=7. He was treated with external beam [...] AM EDT Office Visit Hematology/Oncology at [address] [phone] Adrianne Ramon MD [facility] HEMATOLOGY [place] [address] Yael Merlos APRN [facility] [place]EMATOLOGY [place] [address] 10/03/2023 10:30 AM EDT Infusion Hematology Oncology at [address] [phone] 10/10/2023 2:45 PM EDT Appointment XRay at [address] [place] [address] Micha Givens Jr., MD [facility] DR HEMATOLOGY [place] [address] 10/10/2023 3:00 PM EDT Appointment Non-[place] [address] 10/10/2023 3:30 PM EDT Appointment [place] [address] 10/11/2023 8:30 AM EDT Infusion Hematology Oncology at [address] [phone] documented as of this encounter Visit Diagnoses Diagnosis Malignant neoplasm of prostate documented in this encounter Care Teams Slip Bridge Operator Relationship Specialty Start Date End Date Bobby Headley MD [address] [place] [address] PCP - General 01/29/14 11/28/17 documented as of this encounter
--- OUTSIDE RECORDS SUMMARY | 2023-10-03 03:15 | XMS_ITS | Encounter Summary ---
Author [place] [address] Care Team Providers Care Mechanical Engineering Specialist Name Role Phone Frederick Meade MD Primary Care Provider [phone] Reason for Referral * Diagnostic Test (Routine) - Closed Specialty Diagnoses / Procedures Referred By Contac t Referred To Contact Radiology Diagnoses Diffuse large B-cell lymphoma of lymph nodes of multiple regions Procedures IR [facility] Adrianne Nino MD [facility] [address] [place] [address] [facility] [place] [address] Referral ID Status Reason Start Date Expiration Date V isits Requested Visits Authorized [id number] Closed Specialty Service Requested 10/11/2022 04/13/2024 1 1 Reason for Visit * Diagnostic Test (Routine) - Closed Specialty Diagnoses / Procedures Referred By Contac t Referred To Contact Radiology Diagnoses Diffuse large B-cell lymphoma of lymph nodes of multiple regions Procedures IR [facility] Adrianne Nino MD [facility] [address] [place] [address] [facility] [place] [address] Referral ID Status Reason Start Date Expiration Date V isits Requested Visits Authorized [id number] Closed Specialty Service Requested 10/11/2022 04/13/2024 1 1 Encounter Details Date Type Department Care Team (Late st Contact Info) Description 10/17/2022 7:32 AM EDT - 10/17/2022 11:15 AM EDT Hospital Encounter Radiology at [facility] [place] [address] Adrianne Ramon MD [facility] [address] [place] [address] Diffuse large B-cell lymphoma of lymph nodes [...] provided with an ID card stating the supervisor telephone answering service and type of port you have. Please carry this with you in a safe place. Bandage: There is a sterile dressing over the port site consisting of small gauze with a clear dressing (Tegaderm or HC7031 ). This dressing should be left in place for 48 hours. If the clear dressing becomes loose you should place tape over the edges to secure it in place. Note: If you have steri-strips beneath your dressing, simply allow them to fall off. Do not peel them off. There may be Ensley-mcqueen (skin glue) also, allow this to flake [...] is during regular office hours, please call [phone]. If it is after regular office hours, or on weekends or holidays, please call [phone] and ask to speak to the Funeral Pre Need Consultant paint grinder stone mill for Interventional Radiology. XXX You have received [...] Chewable Take 325 mg by mouth daily. ferrous sulfate 325 [...] (home) Telephone Information: PCP: Frederick Meade MD [phone] Date/Time of call: October 18, 2022/9:37 AM [...] of : 1950 AGE: 72 y.o. Address: [address] [place] [address] (home) Mobile: Telephone Information: Referring Provider: Adrianne [...] Questions Answers Where will study be performed? [facility] Radiology [120] Prefered insertion location: No [...] reviewed: Yes Higinio Ramsey MD PGY-3 Pager #[phone] Department of Radiology [facility] 10/17/2022 Source Note - James Champion DO [...] access for chemotherapy. IR History: None at [facility]. Antiplatelets: Aspirin 81 mg daily. Anticoagulants: None. 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 Tobacco Use Smoking status: Former Packs/day: 1.00 Types: Cigarettes Quit date: 1985 Years since quittin.6 Smokeless tobacco: Former Quit date: 02/19/1986 Tobacco comments: started smoking in [place] Vaping Use Vaping Use: Never used Substance [...] AM EDT Office Visit Hematology/Oncology at [address] [address] Adrianne Ramon MD [facility] HEMATOLOGY AND ONCOLOGY [place] [address] Yael Merlos APRN [facility] HEMATOLOGY AND ONCOLOGY [place] [address] 10/03/2023 10:30 AM EDT Infusion Hematology Oncology at [address] [address] 10/10/2023 2:45 PM EDT Appointment XRay at [address] [place] [address] Micha Givens Jr., MD [facility] HEMATOLOGY AND ONCOLOGY [place] [address] 10/10/2023 3:00 PM EDT Appointment Non-[place] [address] 10/10/2023 3:30 PM EDT Appointment [place] [address] 10/11/2023 8:30 AM EDT Infusion Hematology Oncology at [address] [address] documented as of this [...] Glucose, POC 101 65 - 199 mg/dL [facility] Comment: Supplemental ranges: <140 mg/dL before meals <180 mg/dL all other times of the day Blood 10/17/2022 8:29 AM EDT 10/17/2022 8:29 AM EDT Adrianne Ramon MD POINT [place] C[place] [address] documented in this encounter Visit Diagnoses Diagnosis [...] mL/hr documented in this encounter Care Teams Mechanical Engineering Specialist Relationship Specialty Start Date End Date Frederick Meade MD [address] [place] [address] PCP - General Family Medicine 11/29/17 documented as of this encounter
--- OUTSIDE RECORDS SUMMARY | 2023-10-03 03:15 | XMS_ITS | Encounter Summary ---
Author Organization [facility] [place] [address] Care Team Providers Care Senior Oracle Applications Developer Name Role Phone Frederick Meade MD Primary Care Provider [phone] Reason for Referral * Diagnostic Test (Routine) - Closed Specialty Diagnoses / Procedures Referred By Contac t Referred To Contact Cardiology Diagnoses Diffuse large B-cell lymphoma of lymph nodes of multiple regions Procedures Echocardiogram Transthoracic Adrianne Mera MD [facility] [place] [address] [facility] [place] [address] Referral ID Status Reason Start Date Expiration Date V isits Requested Visits Authorized [id number] Closed Specialty Service Requested 10/11/2022 10/11/2023 1 1 Encounter Details Date Type Department Care Team (Late st Contact Info) Description 10/11/2022 Orders Only Hematology [place] [address] Adrianne Mera MD [facility] [place] [address] Diffuse large B-cell lymphoma of lymph nodes [...] AM EDT Office Visit Hematology/Oncology at [address] [address] Adrianne Mera MD [facility] HEMATOLOGY [place] [address] Yael Merlos, PURSE SEINER [facility] [place] [address] 10/03/2023 10:30 AM EDT Infusion Hematology Oncology at [address] [address] 10/10/2023 2:45 PM EDT Appointment XRay at [address] [place] [address] Micha Givens Jr., MD [facility] [place] [address] 10/10/2023 3:00 PM EDT Appointment Non-[place] [address] 10/10/2023 3:30 PM EDT Appointment [place] [address] 10/11/2023 8:30 AM EDT Infusion Hematology Oncology at [address] [address] documented as of this encounter Results * ECHO COMPLETE (10/12/2022 10:00 AM EDT) EF 49 HEARTLAB SYSTEM Anatomical Region Laterality Modality Cardiac Other 10/12/2022 9:33 AM EDT Narrative 10/12/2022 10:15 AM EDT ? Echocardiogram Report Name: CHEO MORFIN ? Study Date: 10/12/2022 09:33 AMBP: 164/86 mmHg ? Patient Location: [facility] : 1950 ? Height: 168 cm ? Account: [id number] Age: 72 yrs ? Weight: 97 kg Gender: Male ?BSA: 2.1 m2 Ordering Physician: ADRIANNE MERA Referring Physician: ADRIANNE MERA Performed By: Teresa Villafuerte RDCS Reason For Study: Diffuse large B-cell lymphoma of lymph nodes of multiple regions Exam Location: [facility]. Interpretation Summary Left ventricle is of [...] findings. No comparison study is available. Procedure Complete-34523. Satisfactory quality. Left Ventricle Left ventricle is [...] Date: 309:33 AMBP: 164/86 mmHg Patient Location: [facility] : 1950 Height: 168 cm Account: [id number] Age: 72 yrs Weight: 97 kg Gender: Male BSA: 2.1 m2 Ordering Physician: ADRIANNE MERA Referring Physician: ADRIANNE MERA Performed By: Teresa Villafuerte RDCS Reason For Study: Diffuse large B-cell lymphoma of lymph nodes ofmultiple regions Exam Location: [facility]. Interpretation Summary Left ventricle is of [...] findings. No comparison study is available. Procedure Complete-93755. Satisfactory quality. Left Ventricle Left ventricle is [...] mmHg . The estimated right atrial pressure [id number]. There is Grade I LV diastolic dysfunction [...] documented in this encounter Care Teams Senior Oracle Applications Developer Relationship Specialty Start Date End Date Frederick Meade MD [address] [place] [address] PCP - General Family Medicine 11/29/17 documented as of this encounter
--- OUTSIDE RECORDS SUMMARY | 2023-10-03 03:15 | XMS_ITS | Encounter Summary ---
[place] [address] Care Team Providers Care Bulk Sealer Operator Name Role Phone Frederick Meade MD Primary Care Provider [phone] Reason for Referral * Diagnostic Test (Routine) - Closed Specialty Diagnoses / Procedures Referred By Contac t Referred To Contact Cardiology Diagnoses Diffuse large B-cell lymphoma of lymph nodes of multiple regions Procedures Echocardiogram Transthoracic Adrianne Mera MD [facility] [address] [place] [address] [facility] [place] [address] Referral ID Status Reason Start Date Expiration Date V isits Requested Visits Authorized [id number] Closed Specialty Service Requested 10/11/2022 10/11/2023 1 1 Reason for Visit * Diagnostic Test (Routine) - Closed Specialty Diagnoses / Procedures Referred By Contac t Referred To Contact Cardiology Diagnoses Diffuse large B-cell lymphoma of lymph nodes of multiple regions Procedures Echocardiogram Transthoracic Adrianne Mera MD [facility] DR [place] [address] [facility] [place] [address] Referral ID Status Reason Start Date Expiration Date V isits Requested Visits Authorized [id number] Closed Specialty Service Requested 10/11/2022 10/11/2023 1 1 Encounter Details Date Type Department Care Team (Late st Contact Info) Description 10/12/2022 9:05 AM EDT - 10/12/2022 10:25 AM EDT Hospital Encounter Non-Invasive Cardiology Lab [place] [address] Adrianne Mera MD [facility] DR [place] [address] Diffuse large B-cell lymphoma of lymph nodes [...] AM EDT Office Visit Hematology/Oncology at [address] [address] Adrianne Mera MD [facility] HEMATOLOGY [place] [address] Yael Merlos APRN [facility] HEMATOLOGY [place] [address] 10/03/2023 10:30 AM EDT Infusion Hematology Oncology at [address] [address] 10/10/2023 2:45 PM EDT Appointment XRay at [address] [place] [address] Micha Givens Jr., MD [facility] HEMATOLOGY AND ONCOLOGY [place] [phone] 10/10/2023 3:00 PM EDT Appointment Non-[place] [address] 10/10/2023 3:30 PM EDT Appoint[place] [address] 10/11/2023 8:30 AM EDT Infusion Hematology Oncology at [address] [address] documented as of this [...] 09:33 AMBP: 164/86 mmHg ? Patient Location: [facility] : 1950 ? Height: 168 cm ? Account: [id number] Age: 72 yrs ? Weight: 97 kg Gender: Male ?BSA: 2.1 m2 Ordering Physician: ADRIANNE MERA Referring Physician: ADRIANNE MERA Performed By: Teresa Villafuerte RDCS Reason For Study: Diffuse large B-cell lymphoma of lymph nodes of multiple regions Exam Location: [facility]. Interpretation Summary Left ventricle is of normal [...] findings. No comparison study is available. Procedure Complete-44078. Satisfactory quality. Left Ventricle Left ventricle is [...] E/ e' (lat): 8.3 Med Peak E' Jugn: 7.8 cm/sec E/e' (med): 9.1 E/e' Average: [...] Date: 309:33 AMBP: 164/86 mmHg Patient Location: [facility] : 1950 Height: 168 cm Account: [id number] Age: 72 yrs Weight: 97 kg Gender: Male BSA: 2.1 m2 Ordering Physician: ADRIANNE MERA Referring Physician: ADRIANNE MERA Performed By: Teresa Villafuerte RDCS Reason For Study: Diffuse large B-cell lymphoma of lymph nodes ofmultiple regions Exam Location: [facility]. Interpretation Summary Left ventricle is of normal [...] findings. No comparison study is available. Procedure Complete-31771. Satisfactory quality. Left Ventricle Left ventricle is [...] mmHg . The estimated right atrial pressure [id number]. There is Grade I LV diastolic dysfunction [...] regions documented in this encounter Care Teams Bulk Sealer Operator Relationship Specialty Start Date End Date Frederick Meade MD [address] [place] [address] PCP - General Family Medicine 11/29/17 documented as of this encounter
--- OUTSIDE RECORDS SUMMARY | 2023-10-03 03:15 | XMS_ITS | Encounter Summary ---
Author Organization [facility] [place] [address] Care Team Providers Care Recruiting Specialist Name Role Phone Frederick Meade MD Primary Care Provider [phone] Reason for Referral * Consultation (Urgent) - Closed Specialty Diagnoses / Procedures Referred By Paul bowen Referred To Contact Cardiology Diagnoses Diffuse large B-cell lymphoma of lymph nodes of multiple regions CARD-ONC Pt w/o cardiac hx. New lymphoma. Needs anthracycline. Echo w/ EF 49% & mild global hypokinesis. Please eval for ongoing anthracycline safety. Adrianne Mera MD [facility] DR HEMATOLOGY [place] [address] Chalo Mcintyre MD [facility] [address] Referral ID Status Reason Start Date Expiration Date V isits Requested Visits Authorized [id number] Closed Consult, Test & Treat 10/12/2022 10/12/2023 1 1 * Diagnostic Test (Routine) - Closed Specialty Diagnoses / Procedures Referred By Paul bowen Referred To Contact Cardiology Diagnoses Diffuse large B-cell lymphoma of lymph nodes of multiple regions Procedures Echocardiogram Transthoracic Adrianne Mera MD [facility] HEMATOLOGY [place] [address] [facility] [place] [address] Referral ID Status Reason Start Date Expiration Date V isits Requested Visits Authorized [id number] Closed Specialty Service Requested 10/12/2022 10/12/2023 1 1 Reason for Visit * Reason Comments Follow-up Encounter Details Date Type Department Care Team (Late st Contact Info) Description 10/12/2022 1:30 PM EDT Office Visit [place]ematology [place] [address] Adrianne Mera MD [facility] DR HEMATOLOGY [place] [address] Adrianne Aquino APRN [facility] HEMATOLOGY [place] [address] Diffuse large B-cell lymphoma of [...] - 10/12/2022 1:30 PM [place] [address] NEW PATIENT EVALUATION Patient Active [...] ~2 weeks ago saw [facility] and when to [facility]. No beds so sent to [facility] [...] x7 days with nice response. Pathology from [facility] reports large B-cell lymphoma. Double expresser. FISH for translocations are pending. Tongue swelling. No wt loss. Eating and drinking OK. No fevers, infections, No NS. Pain in neck.Prednisone 60mg daily X 7 days. I feel great on prednisone last day of prednisone is today Took iron supplements per PCP - unclear cause. - last COLO at [facility] was 01/17/2012. Cheo returns today with [...] only 1 biologic. Son Cheo Freire. Enjoys [employer], [employer], race car, cards. [employer]. 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 Not a . ETOH: 1-3 beers per week Smoking: Quit 1985. Approximately 45-swmr-btrd history Vaping or electronic cigarettes: denies Chewing [...] Result Value Ref Range Surgical Pathology Report [id number] Location: [facility] The signing pathologist has (i) examined the relevant preparation(s) for the specimen(s) and (ii) rendered or confirmed the diagnosis(es). . Surgical Pathology DIAGNOSIS CONSULTATION CASE A. TONGUE, LEFT BASE (BIOPSY); [OSR# [id number], COLLECTED 10/05/2022, 12 SLIDES]: 1. Diffuse large B-cell lymphoma, activated B-cell subtype (ABC-DLBCL) (see comment) 2. Ki67 proliferation estimated at >95%, lymphoma coexpresses BCL2 and CMYC Electronically signed by: Ole Bowen MD Verified: 10/12/2022 11:37 Hematopathologist Performed at: -[facility] Dept. of Pathology, [place] [address] Plasma Specialist: Katherine Lopez MD, FCAP, [place] Certificate: [id number] DISCUSSION Per report from the referring institution, ...Flow cytometry ([id number]) supports this interpretation. FISH studies were reportedly sent to [facility] to assess for MYC and [...] referring facility, but included for evaluation at [facility]. Appropriate controls are included for each case. . SPECIMEN(S) SUBMITTED CONSULTATION CASE A - 12 slide(s) labeled [id number], collection date 10/05/2022. [id number] CARBON COPY: [facility] Surgical Pathology Department [facility], [address] [place] [address] CLINICAL INFORMATION A 72 year old man. Per provided report, there is a clinical history of Massive LAD, history of prostate cancer; clinical diagnosis code: R59.1. SPECIMEN PROCESSING [facility] ([facility]) pathology slide(s) are reviewed. Refer to Diagnosis and Specimen Submitted for specific case information. For the full text of the [facility] report(s) please refer to the Chart [...] and BCL-2 protein (Double Expressor.) Flow cytometry ([id number]) supports this interpretation. The differential classification of this lesion is diffuse large B-cell lymphoma versus high grade B-cell lymphoma with MYC and BCL-2 rearrangement. Material has been sent to [facility] to assess the status of these genes by FISH and an addendum report with a definitive classification will be issued upon receipt of the result. CD3 (SP7, Thermo Scientific) Background T-cells CD20 (L26, Pantops) diffusely positive in Neoplastic B-cells PAX-5 (1EW, Leica) diffusely positive in Neoplastic B-cells CD10 (SP67, Pantops) Negative BCL-6 (G/191E/A8, Pantops) Positive MUM-1 (MUM1p, Dako) Positive Myc (Y69, Abcam) Positive BCL-2 Oncoprotein (124, Pantops) Positive Ki67 (MIB-1) (K2, Leica) Greater than 95% of cells in cycle Cyclin D1(SP4-R, Pantops) Negative SAPPHIRE JOSE (HDB2677-V, Leica) Negative. DIAGNOSTICS: 10/11/22 ECHO EF = [...] chemotherapy. Furtherprednisone prescriptions [facility] be given [facility], during PTI chemotherapy teaching Cardiac - EF 49%. No stress test in past. Suspected MEHNAZ - Hgb drop 3gm in last 2 weeks. Taking oral iron 2 tabs per day. Stools have been butcher chicken and fish recently. No COLO in last 10 years. Will add iron studies to labs today and check PET tomorrow.Will follow. Labs seem most consistent with anemia of chronic disease. Prostate Cancer -DAVE at this time Plan: Follow up on FISH for MYC, BCL-2 and BLC-6 -UV sent these tests out to [place] Prednisone -100 mg on 10/14 and 10/15. Then restart with chemotherapy Mediport -scheduled for Sunday PTI -on 10/18 at 8 AM with Yael Merlos at [facility] Discuss cardiac function, and role of anthracycline with ejection fraction of 49% with Dr. Matthew Mcintyre - message sent today Plan allopurinol X 14 d w/ C#1 Support with Onpro Claritin x1 week status post OnPro ID - acv prophy - add antibiotics only if neutropenic. Midcycle check with Fozia Richardson on 10/25. I appreciate her help. ECHO following C#1 at [facility] approx 10/20/22 Urgent referral to cardiology. Matthew Mcintyre requested. [facility] or [place] I discussed all of the above with the patient and all of his questions were answered. Support and counseling as appropriate. This note was written or modified using [employer] voice recognition software. The final note was screened for chief of safety and protection errors. Please excuse any remaining errors. Addendum staff message from Matthew Mcintyre, Cardiology: Adrianne; Thanks for the message; will see if we can see him up in [place]. On review of his CT, he has [...] AM EDT Office Visit Hematology/Oncology at [address] [address] Adrianne Mera MD [facility] HEMATOLOGY [place] [address] Yael Merlos, DISTRICT MANAGER POSTAL SERVICE [facility] HEMATOLOGY [place] [address] 10/03/2023 10:30 AM EDT Infusion Hematology Oncology at [address] [address] 10/10/2023 2:45 PM EDT Appointment XRay at [address] [place] [address] Micha Givens Jr., MD [facility] HEMATOLOGY [place] [address] 10/10/2023 3:00 PM EDT Appointment Non[place] [address] 10/10/2023 3:30 PM EDT Appointment [place] [address] 10/11/2023 8:30 AM EDT Infusion Hematology Oncology at [address] [address] Scheduled Referrals Name Type Priority [...] 1950 ? Height: 169 cm ? Account: [id number] Age: 72 yrs ? Weight: 93 kg [...] function has slightly improved. Procedure Limited - [address]. Left ventricular strain. Satisfactory quality. There is [...] Echocardiogram Report Name: CHEO FREIRE Study Date: :11 AMBP: 154/72 mmHg Patient Location: : 1950 Height: 169 cm Account: [id number] Age: 72 yrs Weight: 93 kg Gender: [...] LV function hasslightly improved. Procedure Limited - 200[address]. Left ventricular strain. Satisfactory quality. There isnormal [...] regions documented in this encounter Care Teams Recruiting Specialist Relationship Specialty Start Date End Date Frederick Meade MD [address] [place] [address] PCP - General Family Medicine 11/29/17 documented as of this encounter
--- OUTSIDE RECORDS SUMMARY | 2023-10-03 03:15 | XMS_ITS | Encounter Summary ---
Author Organization [facility] [place] [address] Care Team Providers Care Laborer Hide House Name Role Phone Frederick Meade MD Primary Care Provider [phone] Encounter Details Date Type Department Care Team (Late st Contact Info) Description 10/11/2022 External [place] [phone] Provider, Scanning Social History Tobacco Use Types [...] AM EDT Office Visit Hematology/Oncology at [address] [phone] Adrianne Ramon MD [facility] DR H[place]AT[place] [address] Yael Merlos APRN [facility] DR [place]EMATOLOG[place] [address] 10/03/2023 10:30 AM EDT Infusion Hematology Oncology at [address] [address] 10/10/2023 2:45 PM EDT Appointment XRay at [address] [place] [address] Micha Givens Jr., MD [facility] HEMATOLOGY [place] [address] 10/10/2023 3:00 PM EDT Appointment Non-[place] [phone] 10/10/2023 3:30 PM EDT Appointment [place] [address] 10/11/2023 8:30 AM EDT Infusion Hematology Oncology at [address] [address] documented as of this encounter Procedures Procedure Name Priority Date/Time Associated Diagnosis Comments SURGICAL PATHOLOGY SCAN Routine 10/11/2022 documented in this encounter Results * Scan Doc: Surgical Pathology (10/11/2022) Historical Provider MD LOPEZ MGR SCAN EX T ORDR/RSLT documented in this encounter Visit Diagnoses Not on filedocumented in this encounter Care Teams Laborer Hide House Relationship Specialty Start Date End Date Frederick Meade MD [address] [place] [address] PCP - General Family Medicine 11/29/17 documented as of this encounter
--- OUTSIDE RECORDS SUMMARY | 2023-10-03 03:15 | XMS_ITS | Encounter Summary ---
Author Organization [facility] [address] Care Team Providers Care Landscape Architect And Planner Name Role Phone Bobby Headley MD Primary Care Provider [phone] Encounter Details Date Type Department Care Team (Late Contact Info) Description 11/21/2017 Orders Only Radiation Oncology at [address] [phone] Lidia Reno RN Malignant neoplasm of prostate [...] AM EDT Office Visit Hematology/Oncology at [address] [phone] Adrianne Ramon MD [facility] HEMATOLOGY [place] [address] Yael Merlos, KARLA [facility] DR HEMATOLOGY [place] [address] 10/03/2023 10:30 AM EDT Infusion Hematology Oncology at [address] [phone] 10/10/2023 2:45 PM EDT Appointment XRay at [address] [place] [address] Micha Givens Jr., MD [facility] HEMATOLOGY [place] [address] 10/10/2023 3:00 PM EDT Appointment Non-Invasive [place] [address] 10/10/2023 3:30 PM EDT Appointment [place] [address] 10/11/2023 8:30 AM EDT Infusion Hematology Oncology at [address] [phone] documented as of this encounter Visit Diagnoses Diagnosis Malignant neoplasm of prostate documented in this encounter Care Teams Landscape Architect And Planner Relationship Specialty Start Date End Date Bobby Headley MD [address] [place] [address] PCP - General 01/29/14 11/28/17 documented as of this encounter
--- OUTSIDE RECORDS SUMMARY | 2023-10-03 03:15 | XMS_ITS | Encounter Summary ---
[place] [address] Care Team Providers Care Paint Tester Name Role Phone Frederick Meade MD Primary Care Provider [phone] Encounter Details Date Type Department Care Team (Late Contact Info) Description 09/22/2022 Notes [place] [address] Karly Jacobs MD [facility] [place] [address] Social History Tobacco Use Types Packs/Day Years [...] 10:00 AM EDT Office Visit Hematology/Oncology at [address] [phone] Adrianne Ramon MD [facility] HEMATOLOGY [place] [address] Yael Merlos, ADVERTISING CLERK [facility] DR HEMATOLOGY [place] [address] 10/03/2023 10:30 AM EDT Infusion Hematology Oncology at [address] [phone] 10/10/2023 2:45 PM EDT Appointment XRay at [address] [place] [address] Micha Givens Jr., MD [facility] HEMATOLOGY [place] [address] 10/10/2023 3:00 PM EDT Appointment Non-Invasive [place] [address] 10/10/2023 3:30 PM EDT Appointment [place] [address] 10/11/2023 8:30 AM EDT Infusion Hematology Oncology at [address] [phone] documented as of this encounter Visit Diagnoses Not on filedocumented in this encounter Care Teams Paint Tester Relationship Specialty Start Date End Date Frederick Meade MD [address] [facility] [address] PCP - General Family Medicine 11/29/17 documented as of this encounter
--- OUTSIDE RECORDS SUMMARY | 2023-10-03 03:15 | XMS_ITS | Encounter Summary ---
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, unspecified non-Hodgkin lymphoma type Diffuse large B-cell lymphoma of lymph nodes of multiple regions Procedures NM PET CT Standard Plus Extremities and Head Adrianne Ramon MD [facility] [place] [address] [place] [address] Referral ID Status Reason Start Date Expiration Date V isits Requested Visits Authorized [id number] Closed Specialty Service Requested 10/10/2022 04/12/2024 1 2 Encounter Details Date Type Department Care Team (Late st Contact Info) Description 10/12/2022 10:26 AM EDT - 10/12/2022 11:59 PM EDT Hospital Encounter [place] [address] Adrianne Ramon MD [facility] [place] [address] Discharge Disposition: Home Social History [...] 10:00 AM EDT Office Visit Hematology/Oncology at [address] [phone] Adrianne Ramon MD [facility] [place] [address] Yael Merlos APRN [facility] HEMATOLOGY [place] [address] 10/03/2023 10:30 AM EDT Infusion Hematology Oncology at [address] [address] 10/10/2023 2:45 PM EDT Appointment XRay at [address] [place] [address] Micha Givens Jr., MD [facility] HEMATOLOGY [place] [address] 10/10/2023 3:00 PM EDT Appointment Non-[place] [address] 10/10/2023 3:30 PM EDT [place] [address] 10/11/2023 8:30 AM EDT Infusion Hematology Oncology at [address] [address] documented as of this encounter Procedures Procedure [...] Glucose, POC 113 65 - 199 mg/dL [facility] Comment: Supplemental ranges: <140 mg/dL before meals <180 mg/dL all other times of the day Blood 10/12/2022 11:0 0 AM EDT 10/12/2022 11:00 AM EDT Adrianne Ramon MD POINT OF CARE TE ST ORDERABLES [place] [place] [address] documented in this encounter Visit Diagnoses Not on filedocumented in this encounter Care Teams Software Consultant Relationship Specialty Start Date End Date Frederick Meade MD [address] [place] [address] PCP - General Family Medicine 11/29/17 documented as of this encounter
--- OUTSIDE RECORDS SUMMARY | 2023-10-03 03:15 | XMS_ITS | Encounter Summary ---
[place] [address] Care Team Providers Care Nuclear Fuels Research Engineer Name Role Phone Frederick Meade MD Primary Care Provider [phone] Reason for Referral * Diagnostic Test (Routine) - Closed Specialty Diagnoses / Procedures Referred By Contac t Referred To Contact Radiology Diagnoses Diffuse large B-cell lymphoma of lymph nodes of multiple regions Procedures IR Mediport Placement Adrianne Ramon MD [facility] DR HEMATOLOGY [place] [address] [place] [address] Referral ID Status Reason Start Date Expiration Date V isits Requested Visits Authorized [id number] Closed Specialty Service Requested 10/11/2022 04/13/2024 1 1 * Diagnostic Test (Routine) - Closed Specialty Diagnoses / Procedures Referred By Contac t Referred To Contact Radiology Diagnoses Non-Hodgkin lymphoma of lymph nodes of multiple regions, unspecified non-Hodgkin lymphoma type Diffuse large B-cell lymphoma of lymph nodes of multiple regions Procedures NM PET CT Standard Plus Extremities and Head Adrianne Ramon MD [facility] DR HEMATOLOGY [place] [address] [place] [address] Referral ID Status Reason Start Date Expiration Date V isits Requested Visits Authorized [id number] Closed Specialty Service Requested 10/10/2022 04/12/2024 1 2 Reason for Visit * Consultation (Routine) - Closed Specialty Diagnoses / Procedures Referred By Contac t Referred To Contact Hematology and Oncology Diagnoses Diffuse large B-cell lymphoma, unspecified body region Lg Ramírez MD [address] [place] [address] Hem Onc Office [address] [place] [phone] Referral ID Status Reason Start Date Expiration Date V isits Requested Visits Authorized [id number] Closed Consult, Test & Treat 10/10/2022 10/10/2023 1 1 Encounter Details Date Type Department Care Team (Late st Contact Info) Description 10/11/2022 12:00 PM EDT Office Visit Hematology/Oncology at [address] [phone] Adrianne Ramon MD [facility] DR HEMATOLOGY [place] [address] Non-Hodgkin lymphoma of lymph nodes of multiple [...] - 10/11/2022 12:00 PM EDT Hematology Clinic [facility] [place] [address] NEW PATIENT EVALUATION Patient Active Problem List [...] in [facility] and when to [facility]. No beds so sent to [facility] for [address] CAP, [...] days with nice response. Pathology from [facility] reports large B-cell lymphoma. Double expresser. FISH for translocations are pending. Tongue swelling. No wt loss. Eating and drinking OK. No fevers, infections, No NS. Pain in neck.Prednisone 60mg daily X 7 days. I feel great on prednisone last day of prednisone is today Took iron supplements per PCP - unclear cause. - last COLO at [facility] was 01/17/2012. This dictation platform is no longer active. Please use FiveRunson. ONCOLOGY HISTORY: Intermediate risk prostate cancer (4+3, [...] [place]. Enjoys reads, movies, race car, cards. [employer]. 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 Not a . ETOH: 1-3 beers per week Smoking: Quit 1985. Approximately [id number] history Vaping or electronic cigarettes: denies Chewing [...] and BCL-2 protein (Double Expressor.) Flow cytometry ([id number]) supports this interpretation. The differential classification of this lesion is diffuse large B-cell lymphoma versus high grade B-cell lymphoma with MYC and BCL-2 rearrangement. Material has been sent to [facility] to assess the status of these [...] undergo investigation with ultrasound. CT CAP at [facility], report and images have been requested. [...] treatment. We will obtain his pathology from [facility], but it appears to be a [...] will plan to see him tomorrow at [facility] after the PET scan for brief review of the PET scan and discussion of next steps. I did explain to the patient and his family that he most likely will receive R-CHOP chemotherapy which is given 1 day as an outpatient and [facility] and repeated every 3 weeksfor a total of 6 cycles. This takes about 4-1/2 months to complete. I anticipate his lymphoma will respond well. Suspected MEHNAZ - Hgb drop 3gm in last 2 weeks. Taking oral iron 2 tabs per day. Stools have been ultrasound tester recently. No COLO in last 10 years. Will add iron studies to labs today and check PET tomorrow.Will follow. Labs seem most consistent with anemia of chronic disease. Prostate Cancer -DAVE at this time Plan: PET tomorrow [facility] Obtain Path for review at [facility] - follow on FISH Obtain records from [place] -CT chest abdomen and pelvis, discharge summary, and MRI Prednisone -we will hold for now. Await PET scan tomorrow. Mediport -order placed and requested today PTI -on 10/18 at 8 AM with Yael Merlos at [facility] ECHO-tomorrow at [facility] Add on MEHNAZ labs -results returned and listed above Labs on day of PET at [facility] Consult social work at next visit -not yet discussed Consult nutrition at next visit -not yet discussed Plan allopurinol X 14 d w/ C#1 Support with Onpro ID - acv prophy - add antibiotics only if neutropenic. Labs tomorrow at [facility] - hep B/C, HIV, uric I discussed all of the above with the patient and all of his questions were answered. Support and counseling as appropriate. This note was written or modified using [employer]Social voice recognition software. The final note was screened for talent partner errors. Please excuse any remaining errors. total time: time in counselling: Copy Frederick Meade MD * Polly Orellana RN - 10/11/2022 12:00 PM EDT [facility] Patient Medical Oncology Note SOCIAL ASSESSMENT: See [facility] social assessment information entered. 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 Need FMLA paperwork signed [...] [ ] no Local Pharmacy: [facility] FUNCTIONAL SCREENING: Balance difficulty: [ [...] AM EDT Office Visit Hematology/Oncology at [address] [phone] Adrianne Ramon MD [facility] HEMATOLOGY [place] [address] Yael Merlos APRN [facility] HEMATOLOGY [place] [address] 10/03/2023 10:30 AM EDT Infusion Hematology Oncology at [address] [phone] 10/10/2023 2:45 PM EDT Appointment XRay at [address] [place] [address] Micha Givens Jr., MD [facility] HEMATOLOGY [place] [address] 10/10/2023 3:00 PM EDT Appointment [place] [address] 10/10/2023 3:30 PM EDT Appointment [place] [address] 10/11/2023 8:30 AM EDT Infusion Hematology Oncology at [address] [phone] Scheduled Orders Name Type Priority Associated Diagnoses [...] Uric Acid 5.5 3.5 - 8.5 mg/dL [facility] Blood 03/06/2023 7:45 AM EST 03/06/2023 8:00 AM EST Narrative Resulting Agency Comment Spec In Lab Adrianne Ramon MD CHEMISTRY ORDERA BLES [facility] [address] * Lactate Dehydrogenase (03/06/2023 7:45 AM EST) Lactate Dehydrogenase 198 110 - 220 unit/L [facility] Blood 03/06/2023 7:45 AM EST 03/06/2023 8:00 AM EST Narrative Resulting Agency Comment Spec In Lab Adrianne Ramon MD CHEMISTRY ORDERA BLES Performing Organization Address [facility] Co de Phone Number [facility] [address] * (ABNORMAL) Immunoglobulins, Quantitative (03/06/2023 7:45 AM EST) Immunoglobulin G 572(L) 700 - 1,600 mg/dL [facility] Comment: Pediatric Reference Intervals obtained from the Caliper Reference Interval project. http://www.Radario.ca/caliperproject/index.html IgA 118 70 - 400 mg/dL [facility] IgM 123 40 - 230 mg/dL [facility] Blood 03/06/2023 7:45 AM EST 03/06/2023 8:00 AM EST Narrative Resulting Agency Comment Spec In Lab Adrianne Ramon MD CHEMISTRY ORDERA BLES Performing Organization Address [facility] de Phone Number [facility] [address] * (ABNORMAL) Comprehensive metabolic panel (non-fasting) (03/06/2023 7:45 AM EST) Glucose 133 65 - 199 mg/dL [facility] Comment:Diabetes: >=200 mg/d L plus symptoms Blood Urea Nitrogen 12 10 - 20 mg/dL [facility] Creatinine 0.94 0.80 - 1.50 mg/dL [facility] Sodium 143 135 - 145 mmol/L [facility] Potassium 3.7 3.5 - 5.0 mmol/L [facility] Comment: Please note: ??Patients with WBC >100,000 may have falsely elevated Potassium levels. ??For accurate Potassium quantification in these patients send serum separator tube (gold top) for subsequent determinations. ??Contact the Clinical Chemistry Laboratory if there are any questions. Chloride 108(H) 98 - 107 mmol/L [facility] Carbon Dioxide 23 22 - 31 mmol/L [facility] Anion Gap 12 5 - 15 mmol/L [facility] Calcium 9.6 8.5 - 10.5 mg/dL [facility] Protein, Total 6.4 6.1 - 8.0 g/dL [facility] Albumin 4.1 3.2 - 5.2 g/dL [facility] Aspartate Aminotransferase 22 0 - 39 unit/L [facility] Alanine Aminotransferase 18 0 - 55 unit/L [facility] Alkaline Phosphatase 103 40 - 130 unit/L [facility] Bilirubin, Total 0.2 0.2 - 1.3 mg/dL [facility] Est Glomerular Filtration Rate 85 >=60 mL/min/1. 73 m?? [facility] Comment: This patient's estimated GFR was [...] In Lab Adrianne Ramon MD CHEMISTRY ORDERA [facility] Organization Address City/State/ZIP Co de Phone Number [facility] [address] * HIV Screen, 4th Generation ([facility]/CGP/APD/NLH) (10/17/2022 11:45 AM EDT) HIV Ab/Ag Screen Negative Negative [facility] Comment: This 4th Generation HIV test [...] HIV Comment Low Risk of HIV Infection [facility] Blood 10/17/2022 11:4 5 AM EDT 10/17/2022 12:08 PM EDT Narrative Resulting Agency Comment Spec In Lab Adrianne Ramon MD CHEMISTRY ORDERA BLES [facility] [address] * Hepatitis C Antibody (10/17/2022 11:45 AM EDT) Hepatitis C Antibody Negative Negative [facility] Blood 10/17/2022 11:4 5 AM EDT 10/17/2022 12:08 PM EDT Narrative Resulting Agency Comment Spec In Lab Adrianne Ramon MD CHEMISTRY ORDERA BLES Performing Organization Address [facility] Co de Phone Number [facility] [address] * IR Mediport Placement (10/17/2022 10:44 AM [...] may be used immediately. Service provider: Gail Jha PA-C I was present during the intraservice time [...] questions please contact the health health care assistant that requested your imaging first. ? Electronically signed by: Rohan Henley MD, [facility] ([phone]), at 10/12/2022 3:23 PM Narrative 10/12/2022 3:23 PM EDT EXAMINATION: NM PET CT STANDARD PLUS EXTREMITIES AND HEAD CLINICAL HISTORY: Non-Hodgkin lymphoma, staging new large B cell lymphoma - involving oropharynx/ cervical. ??staging. TECHNIQUE: Procedure: Following IV injection of 76-svqkga-0-deoxyglucose (FDG) a standard uptake of approximately 60 [...] staging. TECHNIQUE: Procedure: Following IV injection of 97-pmrmdq-4-deoxyglucose(FDG) a standard uptake of approximately 60 minutes, [...] the resident's interpretationand agree with the findings, Roahn Henley MD at 10/12/2022 3:23 PM Thank you for letting us participate in the care of this patient. If youare a health care provider and have any questions regarding this report,please contact the number below. For patients who have questions please contactthe health health care assistant that requested your imaging first. Electronically signed by: Rohan Henley MD, [facility]([phone]), at 10/12/2022 3:23 PM Adrianne Ramon MD IMG PET ORDERABL ES * Comprehensive metabolic panel (non-fasting) (10/11/2022) Blood Urea Nitrogen 20 Creatinine 1.2 Sodium 134 Potassium 4.0 Bilirubin, Total 0.3 Aspartate Aminotransferase 15 Alanine Aminotransferase 49 Lactate Dehydrogenase 283 Iron 62 Iron Saturation 29 Ferritin 139 TIBC 214 Blood 10/11/2022 Historical Provider CHEMISTRY ORDERAB LES * CBC (with Diff) (10/11/2022) White Blood Cell 11.95 Hemoglobin 10.8 Hematocrit 32.1 Platelet 290 ANC 9.67 Blood 10/11/2022 Historical Provider HEMATOLOGY ORDERA BLES * Comprehensive metabolic panel (non-fasting) (09/30/2022) Glucose 129 Blood Urea Nitrogen 24 Creatinine [...] regions documented in this encounter Care Teams Nuclear Fuels Research Engineer Relationship Specialty Start Date End Date Frederick Maede MD [address] [place] [address] PCP - General Family Medicine 11/29/17 documented as of this encounter
--- OUTSIDE RECORDS SUMMARY | 2023-10-03 03:15 | XMS_ITS | Encounter Summary ---
[place] [address] Care Team Providers Care Dock Associate Name Role Phone Frederick Meade MD Primary Care Provider +1 [phone] Reason for Visit * Reason Comments Radiation Follow-up prostate cancer Encounter Details Date Type Department Care Team (Late st Contact Info) Description 08/21/2018 9:00 AM EDT Office Visit Radiation Oncology at [address] [phone] Anna Carr [address] [place] [address] Malignant neoplasm of prostate Social [...] 07/16/2018-- WBC= 6.9, RBC= 3.71, HGB=8, HCT=28.5, XKXS=189, FERRITIN= 7 (L) Date PSA Testosterone (normal [...] offered biopsy which was performed 09/01/14, demonstrating [place] 4+ 3 disease in a single core at the right apex. Forty-five percent of that core did appear to be involved. Perineural invasion was not seen. Pathology had been reviewed at [facility]. He did have a prolonged discussion with [...] the prostate Field orientation: Dynamic arc VMAT Security Intern Target Coverage (70Gy isodose line indicated): Hormone [...] Biopsy 09/01/2014 Volume in cc 15 cc [place] grade/score a+b=c 4+3=7-- intermediate risk prostate cancer [...] on file Occupational History ??? 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 Financial resource strain: [...] file Gets together: Not on file Attends adventist service: Not on file Active member of [...] or finances. He is part of a [employer] league and loves to bowl two to [...] Visit from 08/21/2018 in Radiation Oncology at [facility] Weight 94.9 kg (209 lb 4.8 [...] 07/16/2018-- WBC= 6.9, RBC= 3.71, HGB=8, HCT=28.5, NHPP=627, FERRITIN= 7 (L) Date PSA Testosterone (normal [...] prostate cancer with pretreatment PSA of 5.4 [place] 4+3=7. He was treated with external beam [...] AM EDT Office Visit Hematology/Oncology at [address] [address] Adrianne Ramon MD [facility] DR HEMATOLOGY [place] [address] Yael Merlos, MEDICAID SERVICE COORDINATOR [facility] DR HEMATOLOGY [place] [address] 10/03/2023 10:30 AM EDT Infusion Hematology Oncology at [address] [phone] 10/10/2023 2:45 PM EDT Appointment XRay at [address] [place] [address] Micha Givens Jr., MD [facility] DR HEMATOLOGY [place] [address] 10/10/2023 3:00 PM EDT Appointment Non-[place] [address] 10/10/2023 3:30 PM EDT [place] [address] 10/11/2023 8:30 AM EDT Infusion Hematology Oncology at [address] [phone] documented as of this encounter Visit Diagnoses Diagnosis Malignant neoplasm of prostate documented in this encounter Care Teams Dock Associate Relationship Specialty Start Date End Date Frederick Meade MD [address] [place] [address] [address] [place] [address] PCP - General Family Medicine 11/29/17 documented as of this encounter
--- OUTSIDE RECORDS SUMMARY | 2023-10-03 03:15 | XMS_ITS | Encounter Summary ---
Author Organization [facility] [place] [address] Care Team Providers Care Chest Painting And Sealing Supervisor Name Role Phone Frederick Meade MD Primary Care Provider [phone] [phone] Encounter Details Date Type Department Care Team (Late st Contact Info) Description 10/10/2022 Orders Only [place] [address] Adrianne Ramon MD [facility] DR HEMAT[place] [address] Non-Hodgkin lymphoma of lymph nodes of multiple [...] AM EDT Office Visit Hematology/Oncology at [address] [address] Adrianne Ramon MD [facility] HEMAT[place] [address] Yael Merlos, RADIO BROADCASTER [facility] HEMATOLOGY [place] [address] 10/03/2023 10:30 AM EDT Infusion Hematology Oncology at [address] [address] 10/10/2023 2:45 PM EDT Appointment XRay at [address] [place] [phone] Micha Givens Jr., MD [facility] HEMATOLOGY [place] [address] 10/10/2023 3:00 PM EDT Appointment Non-Invasive [place] [address] 10/10/2023 3:30 PM EDT [place] [address] 10/11/2023 8:30 AM EDT Infusion Hematology Oncology at [address] [address] documented as of this encounter Visit Diagnoses Diagnosis Non-Hodgkin lymphoma of lymph nodes of multiple regions, unspecified non-Hodgkin lymphoma type documented in this encounter Care Teams Chest Painting And Sealing Supervisor Relationship Specialty Start Date End Date Frederick Meade MD [address] [place] [address] PCP - General Family Medicine 11/29/17 documented as of this encounter
--- OUTSIDE RECORDS SUMMARY | 2023-10-03 03:15 | XMS_ITS | Encounter Summary ---
Author Organization [facility] [place] [address] Care Team Providers Care Braided Band Assembler Name Role Phone Frederick Meade MD Primary Care Provider [phone] Encounter Details Date Type Department Care Team [...] AM EDT Office Visit Hematology/Oncology at [address] [phone] Adrianne Ramon MD [facility] DR HEMATOLOGY [place] [address] Yael Merlos APRN [facility] DR [place]AT[place] [address] 10/03/2023 10:30 AM EDT Infusion Hematology Oncology at [address] [phone] 10/10/2023 2:45 PM EDT Appointment XRay at [address] [place] [address] Micha Givens Jr., MD [facility] H[place]ATOLOG[place] [address] 10/10/2023 3:00 PM EDT Appointment Non-Invasive [place] [phone] 10/10/2023 3:30 PM EDT Appointment [place] [address] 10/11/2023 8:30 AM EDT Infusion Hematology Oncology at [address] [phone] documented as of this encounter Visit Diagnoses Not on filedocumented in this encounter Care Teams Braided Band Assembler Relationship Specialty Start Date End Date Frederick Meade MD [address] [facility] 1 [place] [address] PCP - General Family Medicine 11/29/17 documented as of this encounter
--- OUTSIDE RECORDS SUMMARY | 2023-10-03 03:15 | XMS_ITS | Encounter Summary ---
[place] [address] Care Team Providers Care Manufacturer'S Service Representative Name Role Phone Frederick Meade MD Primary Care Provider [phone] Encounter Details Date Type Department Care Team (Late st Contact Info) Description 03/17/2019 10:00 AM EST Office Visit Radiation Oncology at [address] [phone] Nitin Stauffer MD [address] [place] [address] DR RADIATION ONCOLOGY [place], [place] [id number] Malignant neoplasm of prostate Social History Tobacco [...] 03/17/19 Nitin Stauffer MD, MS Radiation Oncology [facility] [phone] (paging heating operators engineer) Pager #[phone] Patient ID: Cheo Freire is a 64 [...] totally confined to bed or chair 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 No significant skilled nursing adverse effects from RT/ADT. Followup: Given persistently [...] minute visit was spent with the patient [id number] reviewing his interval medical history and answering questions related to his prostate cancer. documented in this encounter Plan of Treatment Upcoming Encounters Date Type Department Care Team (Late st Contact Info) Description 10/03/2023 10:00 AM EDT Office Visit Hematology/Oncology at [address] [phone] Adrianne Ramon MD [facility] HEMATOLOGY [place] [address] Yael Merlos APRN [facility] HEMATOLOGY [place] [address] 10/03/2023 10:30 AM EDT Infusion Hematology Oncology at [address] [phone] 10/10/2023 2:45 PM EDT Appointment XRay at [address] [place] [address] Micha Givens Jr., MD [facility] HEMATOLOGY [place] [address] 10/10/2023 3:00 PM EDT Appointment Non-[place]vasive [place] [phone] 10/10/2023 3:30 PM EDT Appointment [place] [address] 10/11/2023 8:30 AM EDT Infusion Hematology Oncology at [address] [phone] documented as of this encounter Visit Diagnoses Diagnosis Malignant neoplasm of prostate documented in this encounter Care Teams Manufacturer'S Service Representative Relationship Specialty Start Date End Date Frederick Meade MD [address] [place] [address] PCP - General Family Medicine 11/29/17 documented as of this encounter
--- OUTSIDE RECORDS SUMMARY | 2023-10-03 03:15 | XMS_ITS | Encounter Summary ---
Author Organization [facility] [place] [address] Care Team Providers Care Manager Voice Name Role Phone Frederick Meade MD Primary Care Provider [phone] Reason for Visit * Reason Comments Chemotherapy Teaching Encounter Details Date Type Department Care Team (Late st Contact Info) Description 10/18/2022 8:00 AM EDT Office Visit Hematology/Oncology at [address] [address] Adrianne Ramon MD [facility] DR [place] [address] Yael Merlos, TRUCK GREASER [facility] DR [place] [address] Diffuse large B-cell lymphoma of lymph nodes [...] encounter Progress Notes * Yael Merlos, TRUCK GREASER - 10/18/2022 8:00 AM EDT PATIENT ID: [...] of infection, cataracts and osteoporosis. Medications: please potato picker the following prescriptions before you start [...] You: Support for People with C ancer. hCeo was given an opportunity to ask questions [...] questions or concerns. Yael Merlos, MSN, TRUCK GREASER Nurse Practitioner Section of Hematology [facility] Cc: Frederick Meade MD documented in this encounter Plan of Treatment Upcoming Encounters Date Type Department Care Team (Late st Contact Info) Description 10/03/2023 10:00 AM EDT Office Visit Hematology/Oncology at [address] [phone] Adrianne Ramon MD [facility] DR H[place] [address] Yael Merlos APRN [facility] DR [place] [address] 10/03/2023 10:30 AM EDT Infusion Hematology Oncology at [address] [address] 10/10/2023 2:45 PM EDT Appointment XRay at [address] [place] [phone] Micha Givens Jr., MD [facility] HEMATOLOGY [place] [address] 10/10/2023 3:00 PM EDT Appointment Non-[place] [phone] 10/10/2023 3:30 PM EDT Appointment [place] [phone] 10/11/2023 8:30 AM EDT Infusion Hematology Oncology at [address] [phone] documented as of this encounter Visit Diagnoses Diagnosis Diffuse large B-cell lymphoma of lymph nodes of multiple regions documented in this encounter Care Teams Manager Voice Relationship Specialty Start Date End Date Frederick Meade MD [address] [place] [address] PCP - General Family Medicine 11/29/17 documented as of this encounter
--- OUTSIDE RECORDS SUMMARY | 2023-10-03 03:15 | XMS_ITS | Encounter Summary ---
Author Organization [facility] [place] [address] Care Team Providers Care Research Worker Encyclopedia Name Role Phone Frederick Meade MD Primary Care Provider [phone] [phone] Reason for Referral * Consultation (Routine) - Closed Specialty Diagnoses / Procedures Referred By Contac t Referred To Contact Hematology and Oncology Diagnoses Diffuse large B-cell lymphoma, unspecified body region Lg Ramírez MD [address] [place] [address] [facility] Hem Onc Office [address] [place] [phone] Referral ID Status Reason Start Date Expiration Date V isits Requested Visits Authorized [id number] Closed Consult, Test & Treat 10/10/2022 10/10/2023 1 1 Encounter Details Date Type Department Care Team (Late st Contact Info) Description 10/10/2022 Transcribe Orders eDH Incoming Referrals [phone] Lg Ramírez MD [address] [place] [phone] Diffuse large B-cell lymphoma, unspecified body region [...] 10:00 AM EDT Office Visit Hematology/Oncology at [address] [phone] Adrianne Ramon MD [facility] [place] [address] Yael Merlos APRN [facility] [place] [address] 10/03/2023 10:30 AM EDT Infusion Hematology Oncology at [address] [address] 10/10/2023 2:45 PM EDT Appointment XRay at [address] [place] [address] Micha Givens Jr., MD [facility] HEMATOLOGY [place] [address] 10/10/2023 3:00 PM EDT Appointment Non-[place]vasive [place] [address] 10/10/2023 3:30 PM EDT Appointment [place] [address] 10/11/2023 8:30 AM EDT Infusion Hematology Oncology at [address] [phone] Scheduled Referrals Name Type Priority Associated Diagnoses Orde r Schedule Referral to Hematology and Oncology Outpatient Referral Routine Diffuse large B-cell lymphoma, unspecified body region Ordered: 10/10/2022 documented as of this encounter Visit Diagnoses Diagnosis Diffuse large B-cell lymphoma, unspecified body region documented in this encounter Care Teams Research Worker Encyclopedia Relationship Specialty Start Date End Date Frederick Meade MD [address] [place] [address] PCP - General Family Medicine 11/29/17 documented as of this encounter
--- OUTSIDE RECORDS SUMMARY | 2023-10-03 03:15 | XMS_ITS | Encounter Summary ---
[place] [address] Care Team Providers Care Marine Electronics Repairer Name Role Phone Bobby Headley MD Primary Care Provider [phone] Encounter Details Date Type Department Care Team (Late st Contact Info) Description 12/14/2016 3:45 PM EDT Office Visit Hematology/Oncology at [address] [phone] Nancy Stratton, GLOBAL COMPENSATION ANALYST [address] [facility] [place] [address] Malignant neoplasm of prostate Social History Tobacco [...] this encounter Progress Notes * Nancy Stratton, GLOBAL COMPENSATION ANALYST - 12/14/2016 3:45 PM EDT Images from [...] offered biopsy which was performed 09/01/14, demonstrating [place] 4 + 3 disease in a single core at the right apex. Forty-five percent of that core did appear to be involved.Perineural invasion was not seen. Pathology had been reviewed here at [facility]. 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 Smoking [...] to their sporting events. He went to [place] last September to attend a [employer] andhad a great time. He feels he [...] prostate cancer with pretreatment PSA of 5.4 [place] 4+3=7. He was treated with external beam [...] concerns in the interim. Nancy Stratton, MSN, REAL ESTATE APPRAISER SUPERVISOR, AOCN Hematology/Oncology Nurse Practitioner [place], [place] [phone] . documented in this encounter Plan of Treatment Upcoming Encounters Date Type Department Care Team (Late st Contact Info) Description 10/03/2023 10:00 AM EDT Office Visit Hematology/Oncology at [address] [phone] Adrianne Ramon MD [facility] [place] [address] Yael Merlos APRN [facility] HEMATOLOGY AND ONCOLOGY [place] [address] 10/03/2023 10:30 AM EDT Infusion Hematology Oncology at [address] [phone] 10/10/2023 2:45 PM EDT Appointment XRay at [address] [place] [address] Micha Givens Jr., MD [facility] [place] [address] 10/10/2023 3:00 PM EDT Appointment Non-[place] [address] 10/10/2023 3:30 PM EDT Appoint[place] [address] 10/11/2023 8:30 AM EDT Infusion Hematology Oncology at [address] [address] documented as of this encounter Visit Diagnoses Diagnosis Malignant neoplasm of prostate documented in this encounter Care Teams Marine Electronics Repairer Relationship Specialty Start Date End Date Bobby Headley MD [address] [place] [address] PCP - General 01/29/14 11/28/17 documented as of this encounter
--- OUTSIDE RECORDS SUMMARY | 2023-10-03 03:15 | XMS_ITS | Encounter Summary ---
Author Organization [facility] [place] [address] Care Team Providers Care Asp Developer Name Role Phone Frederick Meade MD Primary Care Provider [phone] Reason for Visit * Reason Comments Chemotherapy [...] (CYTOXAN) Adrianne Ramon MD [facility] [place] [address] [facility] [address] [place] [address] Referral ID Status Reason Start Date Expiration Date Visits Re quested Visits Authorized [id number] Closed 10/11/2022 10/11/2023 1 100 Encounter Details Date Type Department Care Team (Late st Contact Info) Description 10/18/2022 9:00 AM EDT Infusion Hematology Oncology at [address] [phone] Diffuse large B-cell lymphoma of [...] AM EDT Office Visit Hematology/Oncology at [address] [address] Adrianne Ramon MD [facility] HEMATOLOGY [place] [address] Yael Merlos APRN [facility] [place] [address] 10/03/2023 10:30 AM EDT Infusion Hematology Oncology at [address] [address] 10/10/2023 2:45 PM EDT Appointment XRay at [address] [place] [address] Micha Givens Jr., MD [facility] HEMATOLOGY [place] [address] 10/10/2023 3:00 PM EDT Appointment Non-Invasive [place] [address] 10/10/2023 3:30 PM EDT Appointment [place] [address] 10/11/2023 8:30 AM EDT Infusion Hematology Oncology at [address] [phone] documented as of this encounter [...] 2 minutes is a recommendation from the salt grinder. Administer prior to chemotherapy., Routine Given 10/18/2022 [...] Job Aid: Adult Flushing & Catheter Care (7929) job aid for additional information regarding guidelines [...] mL/hr documented in this encounter Care Teams Asp Developer Relationship Specialty Start Date End Date Frederick Meade MD [address] [facility] [place] [address] PCP - General Family Medicine 11/29/17 documented as of this encounter
--- OUTSIDE RECORDS SUMMARY | 2023-10-03 03:15 | XMS_ITS | Encounter Summary ---
[place] [address] Care Team Providers Care Furrier Designer Name Role Phone Frederick Meade MD Primary Care Provider [phone] Encounter Details Date Type Department Care Team (Late st Contact Info) Description 10/17/2022 Notes Only [place]ology [place] [phone] Bailey Moran, RN Social History Tobacco Use [...] AM EDT Office Visit Hematology/Oncology at [address] [address] [facility] HEMATOLOGY [place] [address] [facility] HEMATOLOGY [place] [address] 10/03/2023 10:30 AM EDT Infusion Hematology Oncology at [address] [address] 10/10/2023 2:45 PM EDT Appointment XRay at [address] [place] [address] Micha Givens Jr., MD [facility] HEMATOLOGY [place] [address] 10/10/2023 3:00 PM EDT Appointment [place] [address] 10/10/2023 3:30 PM EDT Appointment [place] [address] 10/11/2023 8:30 AM EDT Infusion Hematology Oncology at [address] [phone] documented as of this encounter Visit Diagnoses Not on filedocumented in this encounter Care Teams Furrier Designer Relationship Specialty Start Date End Date Frederick Meade MD [address] [place] [address] PCP - General Family Medicine 11/29/17 documented as of this encounter
--- OUTSIDE RECORDS SUMMARY | 2023-10-03 03:15 | XMS_ITS | Encounter Summary ---
Author Organization [place] [address] Care Team Providers Care Butter Wrapper Name Role Phone Frederick Meade MD Primary Care Provider [phone] Encounter Details Date Type Department Care Team [...] AM EDT Office Visit Hematology/Oncology at [address] [phone] Adrianne Ramon MD [facility] DR [place] [address] Yael Merlos APRN [facility] DR [place] [address] 10/03/2023 10:30 AM EDT Infusion Hematology Oncology at [address] [phone] 10/10/2023 2:45 PM EDT Appointment XRay at [address] [place] [address] Micha Givens Jr., MD [facility] [place] [address] 10/10/2023 3:00 PM EDT Appointment Non-[place] [address] 10/10/2023 3:30 PM EDT Appointment [place] [address] 10/11/2023 8:30 AM EDT Infusion Hematology Oncology at [address] [phone] documented as of this encounter Visit Diagnoses Not on filedocumented in this encounter Care Teams Butter Wrapper Relationship Specialty Start Date End Date Frederick Meade MD [address] [facility] 1 [place] [address] PCP - General Family Medicine 11/29/17 documented as of this encounter
--- OUTSIDE RECORDS SUMMARY | 2023-10-03 03:15 | XMS_ITS | Encounter Summary ---
[place] [address] Care Team Providers Care Hospice Volunteer Coordinator Name Role Phone Frederick Meade MD Primary Care Provider [phone] Encounter Details Date Type Department Care Team (Late st Contact Info) Description 09/21/2022 Notes Only [place] [address] Karly Jacobs MD [facility] [place] [address] Social History Tobacco Use Types Packs/Day Years [...] by Transfer Center by Dr. Lucero at [facility] on 09/21/22 regarding Cheo Freire. Cheo Freire is a 72 y.o. male with PMH T2DM (diet controlled), HTN (lisinopril), prostate Ca (diagnosed 2014, no treatment), tobacco use history (quit 1984), prior chewing tobacco use history, very occasional alcohol who presented to [facility] with 1 wk throat swelling and [...] ENT, Dr. Ramírez, who is apparently in [place], but suggested this may represent angioedema vs [...] for scope exam to evaluate further. Unfortunately, [facility] had no availability to transfer patient at [...] the outside provider will reach out to Min the interim to see if there is any possibility of transfer to their facility. I have reviewed this assessment with the outside provider. They agreed with plan as outlined above.They will continue to monitor for any respiratory symptoms and will reach out more urgently if theypresent. Karly Jacobs MD, PGY3 09/21/2022 11:33 PM Pager #[phone] documented in this encounter Plan of Treatment Upcoming Encounters Date Type Department Care Team (Late st Contact Info) Description 10/03/2023 10:00 AM EDT Office Visit Hematology/Oncology at [address] [address] Adrianne Ramon MD [facility] [place] [address] Yael Merlos, ETL ANALYST [facility] [place] [address] 10/03/2023 10:30 AM EDT Infusion Hematology Oncology at [address] [phone] 10/10/2023 2:45 PM EDT Appointment XRay at [address] [place] [address] Micha Givens Jr., MD [facility] [place] [address] 10/10/2023 3:00 PM EDT Appointment Non-Invasive [place] [address] 10/10/2023 3:30 PM EDT Appointment [place] [address] 10/11/2023 8:30 AM EDT Infusion Hematology Oncology at [address] [phone] documented as of this encounter Results * [...] have questions please contact the health career counselor that requested your imaging first. ? Narrative 09/22/2022 3:13 PM EDT EXAMINATION: REQUEST FOR 2ND READ CT NECK CLINICAL HISTORY: Nasopharyngeal fluid collection vs infected node, retropharyngeal adenopathy, BOT fullness, RIGHT thyroid lesion; Sending Institution [facility]; Date of exam 09/21/2022; I believe [...] No acute cervical spine fractures. Procedure Note Maeder, Kervin E, MD - 09/22/2022 EXAMINATION: REQUEST FOR 2ND READ CT NECK CLINICAL HISTORY: Nasopharyngeal fluid collection vs infected node, retropharyngeal adenopathy, BOT fullness, RIGHT thyroid lesion; Sending Institution [facility]; Date of exam 09/21/2022; I believe [...] who have questions please contactthe health career counselor that requested your imaging first. Thierry Ruiz MD IMG OUTSIDE INTERPRE TATION ORDERABLES documented in this encounter Visit Diagnoses Diagnosis Nasopharyngeal mass Unspecified disease of pharynx Nasopharyngeal mass Unspecified disease of pharynx documented in this encounter Care Teams Hospice Volunteer Coordinator Relationship Specialty Start Date End Date Frederick Meade MD [address] [place] [address] PCP - General Family Medicine 11/29/17 documented as of this encounter
--- OUTSIDE RECORDS SUMMARY | 2023-10-03 03:15 | XMS_ITS | Encounter Summary ---
Author Organization [facility] [place] [address] Care Team Providers Care Glassware Maker Name Role Phone Bobby Headley MD Primary Care Provider [phone] Encounter Details Date Type Department Care Team (Late st Contact Info) Description 05/24/2016 11:00 AM EDT Office Visit Hematology/Oncology at [address] [address] [address] [facility] [place] [address] Prostate cancer Social History Tobacco Use Types [...] elevated at 5.4 with only 9% free. [place] with Dr. Vergara July 2014 who offered biopsy which was performed 09/01/14, demonstrating Gleason4 + 3 disease in a single core at the right apex. Forty-five percent of that core did appear to be involved. Perineural invasion was not seen. Pathology had been reviewed here at [facility]. 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 Smoking status: Former Smoker Packs/day: 1.00 Types: Cigarettes ??? Smokeless tobacco: Former User Quit date: 02/19/1986 Comment: started smoking in [place] ??? Alcohol use 1.8 oz/week 3 Standard [...] to their sporting events. He went to [place] last September to attend a [employer] tournament andhad a great time. He feels [...] prostate cancer with pretreatment PSA of 5.4 Draper 4+3=7. He was treated with external beam [...] 10:00 AM EDT Office Visit Hematology/Oncology at [address] [address] [facility] HEMATOLOGY [place] [address] [facility] HEMATOLOGY [place] [address] 10/03/2023 10:30 AM EDT Infusion Hematology Oncology at [address] [address] 10/10/2023 2:45 PM EDT Appointment XRay at [address] [place] [address] Micha Givens Jr., MD [facility] HEMATOLOGY [place] [address] 10/10/2023 3:00 PM EDT Appointment Non-Invasive Cardiology [place] [address] 10/10/2023 3:30 PM EDT Appointment [place] [address] 10/11/2023 8:30 AM EDT Infusion Hematology Oncology at [address] [phone] documented as of this encounter Visit Diagnoses Diagnosis Prostate cancer Malignant neoplasm of prostate documented in this encounter Care Teams Glassware Maker Relationship Specialty Start Date End Date Bobby Headley MD [address] [place] [address] PCP - General 01/29/14 11/28/17 documented as of this encounter
--- OUTSIDE RECORDS SUMMARY | 2023-10-03 03:15 | XMS_ITS | Encounter Summary ---
Author Organization [facility] [place] [address] Care Team Providers Care Pants Presser Automatic Name Role Phone Frederick Meade MD Primary Care Provider [phone] Encounter Details Date Type Department Care Team (Latest Contact Info) Description 10/11/2022 3:11 PM EDT - 10/11/2022 11:59 PM EDT [place] [phone] Discharge Disposition: Home Social History Tobacco Use [...] AM EDT Office Visit Hematology/Oncology at [address] [address] Adrianne Ramon MD [facility] [place] [address] Yael Merlos, STONE ENGRAVER [facility] [place] [address] 10/03/2023 10:30 AM EDT Infusion Hematology Oncology at [address] [phone] 10/10/2023 2:45 PM EDT Appointment XRay at [address] [place] [address] Micha Givens Jr., MD [facility] DR HEMATOLOGY [place] [address] 10/10/2023 3:00 PM EDT Appointment Non-[place]vasive [place] [phone] 10/10/2023 3:30 PM EDT Appointment [place] [phone] 10/11/2023 8:30 AM EDT Infusion Hematology Oncology at [address] [phone] documented as of this encounter Procedures Procedure Name Priority Date/Time Associated Diagnosis Comments SURGICAL PATHOLOGY REPORT Routine 10/11/2022 3:13 PM EDT documented in this encounter Results * Surgical Pathology Report (10/11/2022 3:13 PM EDT) Final Diagnosis [id number] ? Location: OPW The signing pathologist has (i) examined the relevant preparation(s) for the specimen(s) and (ii) rendered or confirmed the diagnosis(es). . ?Surgical Pathology DIAGNOSIS CONSULTATION CASE ?? A. TONGUE, LEFT BASE (BIOPSY); [OSR# [id number], COLLECTED 10/05/2022, 12 SLIDES]: ?? 1. Diffuse large B-cell lymphoma, activated B-cell subtype (ABC-DLBCL) (see ?comment) ?? 2. Ki67 proliferation estimated at >95%, lymphoma coexpresses BCL2 and CMYC Electronically signed by: ?Ole Bowen MD Verified: ??10/12/2022 11:37 ??Hematopathologist Performed at: ??-[facility] Dept. of Pathology, [place] [address] Air Traffic Controller Center: Katherine Lopez MD, FCAP, ??CLIA Certificate: [id number] DISCUSSION Per report from the referring institution, ...Flow cytometry ([id number]) supports this interpretation. FISH studies were reportedly sent to [facility] to assess for MYC and [...] referring facility, but included for evaluation at [facility]. Appropriate controls are included for each case. . SPECIMEN(S) SUBMITTED CONSULTATION CASE A - 12 slide(s) labeled [id number], collection date 10/05/2022. [id number] CARBON COPY: [facility] Surgical Pathology Department [facility], [facility], 2nd Floor [address] [place], [place] ??[address] CLINICAL INFORMATION A 72 year old man. Per provided report, there is a clinical history of Massive LAD, history of prostate cancer; clinical diagnosis code: R59.1. SPECIMEN PROCESSING [facility] ([facility]) pathology slide(s) are reviewed. Refer to Diagnosis and Specimen Submitted for specific case information. For the full text of the [facility] report(s) please refer to the Chart Review Media tab in the electronic health record (eDH). 10/12/2022 11:37 AM EDT [facility] Consult Case 10/11/2022 3:13 PM EDT 10/11/2022 3:13 PM EDT Adrianne Ramon MD PATHOLOGY/CYTOLO GY ORDERABLES Performing Organization Address City/State/[facility] Co de Phone Number [facility] [place] [address] [facility] [place] [address] documented in this encounter Visit Diagnoses Not on filedocumented in this encounter Care Teams Pants Presser Automatic Relationship Specialty Start Date End Date Frederick Meade MD [address] [place] [address] PCP - General Family Medicine 11/29/17 documented as of this encounter
--- OUTSIDE RECORDS SUMMARY | 2023-10-03 03:15 | XMS_ITS | Encounter Summary ---
Author Organization [facility] [place] [address] Care Team Providers Care Wood Ski Maker Name Role Phone Frederick Meade MD Primary Care Provider [phone] Encounter Details Date Type Department Care Team (Latest Contact Info) Description 09/22/2022 12:50 AM EDT Ancillary Procedure [place] [phone] Thierry Ruiz MD [facility] [place] [address] Nasopharyngeal mass Social History Tobacco Use Types [...] AM EDT Office Visit Hematology/Oncology at [address] [address] Adrianne Ramon MD [facility] HEMAT[place] [address] Yael Merlos, ORDNANCE OFFICER [facility] [place] [address] 10/03/2023 10:30 AM EDT Infusion Hematology Oncology at [address] [phone] 10/10/2023 2:45 PM EDT Appointment XRay at [address] [place] [phone] Micha Givens Jr., MD [facility] HEMAT[place] [address] 10/10/2023 3:00 PM EDT Appointment Non-Invasive [place] [phone] 10/10/2023 3:30 PM EDT Appointment [place] [phone] 10/11/2023 8:30 AM EDT Infusion Hematology Oncology at [address] [phone] documented as of this encounter Procedures Procedure [...] who have questions please contact the health landcare officer that requested your imaging first. ? Electronically signed by: Kervin Lam MD, [facility] ([phone]), at 09/22/2022 3:13 PM Narrative 09/22/2022 3:13 PM EDT EXAMINATION: REQUEST FOR 2ND READ CT NECK CLINICAL HISTORY: Nasopharyngeal fluid collection vs infected node, retropharyngeal adenopathy, BOT fullness, RIGHT thyroid lesion; Sending Institution [facility]; Date of exam 09/21/2022; I believe [...] BOT fullness, RIGHT thyroid lesion; Sending Institution [facility]; Date of exam 09/21/2022; I believe [...] patients who have questions please contactthe health landcare officer that requested your imaging first. Electronically signed by: Kervin Lam MD, [facility]([phone]), at 09/22/2022 3:13 PM Thierry Ruiz MD IMG OUTSIDE INTERPRE TATION ORDERABLES documented in this encounter Visit Diagnoses Diagnosis Nasopharyngeal mass Unspecified disease of pharynx documented in this encounter Care Teams Wood Ski Maker Relationship Specialty Start Date End Date Frederick Meade MD [address] [place] [address] PCP - General Family Medicine 11/29/17 documented as of this encounter
--- OUTSIDE RECORDS SUMMARY | 2023-10-03 03:15 | XMS_ITS | Encounter Summary ---
[place] [address] Care Team Providers Care Smash Piecer Name Role Phone Frederick Meade MD Primary Care Provider [phone] Encounter Details Date Type Department Care Team (Late st Contact Info) Description 10/10/2022 Telephone Hematology [place] [phone] Castro Jimenez MD [facility] HEMATOLOGY/[place] [address] Social History Tobacco Use Types Packs/Day Years [...] phone call from Dr. Jain (office number [phone]) at [facility] ENT office to discuss below. 72 yo male is seen by DR. Jain for enlarging neck masses. 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 FISH is pending. Since he was worked up in [facility], the results are in [facility] system. Due to the airway concern, pt was started on prednisone last week. Dr. Jain reached out to me to see how quickly blood tester fowl at [facility] can see him. I discussed this case with Dr. Tolliver and soon after that I was told that Dr. Ramon will evaluatehim [facility] tomorrow, which will be the best plan. Dr. Jain was updated about this plan by the hematology clinic. Castro Jimenez MD [facility] Hematology Oncology Fellow Page [phone] documented in this encounter Plan of Treatment Upcoming Encounters Date Type Department Care Team (Late st Contact Info) Description 10/03/2023 10:00 AM EDT Office Visit Hematology/Oncology at [address] [address] Adrianne Ramon MD [facility] [place] [address] Yael Merlos, CAMPUS POLICE OFFICER [facility] [place] [address] 10/03/2023 10:30 AM EDT Infusion Hematology Oncology at [address] [phone] 10/10/2023 2:45 PM EDT Appointment XRay at [address] [place] [address] Micha Givens Jr., MD [facility] [place] [address] 10/10/2023 3:00 PM EDT Appointment [place] [address] 10/10/2023 3:30 PM EDT Appoint[place] [address] 10/11/2023 8:30 AM EDT Infusion Hematology Oncology at [address] [phone] documented as of this encounter Visit Diagnoses Not on filedocumented in this encounter Care Teams Smash Piecer Relationship Specialty Start Date End Date Frederick Meade MD [address] [place] [address] PCP - General Family Medicine 11/29/17 documented as of this encounter
--- OUTSIDE RECORDS SUMMARY | 2023-10-03 03:16 | XMS_ITS | Encounter Summary ---
Author Organization [facility] [place] [address] Care Team Providers Care Bottomer Operator Name Role Phone Bobby Headley MD Primary Care Provider [phone] Encounter Details Date Type Department Care Team (Late st Contact Info) Description 03/01/2016 11:00 AM EST Office Visit Hematology/Oncology at [address] [phone] Annika Quezada APRN [facility] [place] [address] Prostate cancer Social History Tobacco Use Types [...] elevated at 5.4 with only 9% free. [place] with Dr. Vergara July 2014 who offered biopsy which was performed 09/01/14, demonstrating Gleason4 + 3 disease in a single core at the right apex. Forty-five percent of that core did appear to be involved. Perineural invasion was not seen. Pathology had been reviewed here at [facility]. 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 Smoking [...] to their sporting events. He went to [place] in September to attend a [employer] tournament and had a great time. He [...] AM EDT Office Visit Hematology/Oncology at [address] [phone] Adrianne Ramon MD [facility] HEMATOLOGY [place] [address] Yael Merlos APRN [facility] HEMATOLOGY [place] [address] 10/03/2023 10:30 AM EDT Infusion Hematology Oncology at [address] [phone] 10/10/2023 2:45 PM EDT Appointment XRay at [address] [place] [address] Micha Givens Jr., MD [facility] [place] [address] 10/10/2023 3:00 PM EDT Appointment Non[place] [address] 10/10/2023 3:30 PM EDT Appointment [place] [address] 10/11/2023 8:30 AM EDT Infusion Hematology Oncology at [address] [address] documented as of this encounter Visit Diagnoses Diagnosis Prostate cancer Malignant neoplasm of prostate documented in this encounter Care Teams Bottomer Operator Relationship Specialty Start Date End Date Bobby Headley MD [address] [place] [address] PCP - General 01/29/14 11/28/17 documented as of this encounter
--- OUTSIDE RECORDS SUMMARY | 2023-10-03 03:16 | XMS_ITS | Encounter Summary ---
[place] [address] Care Team Providers Care Metal Furniture Panel Coverer Name Role Phone Bobby Headley MD Primary Care Provider [phone] Encounter Details Date Type Department Care Team (Late st Contact Info) Description 02/01/2015 Notes Only Radiation Oncology at [address] [phone] Nitin Stauffer MD [address] [place] [address] DR RADIATION ONCOLOGY [place], [place] [id number] Social History Tobacco Use Types Packs/Day Years [...] his prostate and proximal SV at the [facility] in [place], [place]. Details of his radiation treatment course are as below. RT information: Date of RT Start: 11/25/14 Date of RT Completion: 01/26/15 Dose and targets: 70.2 Gy to the proximal SV and prostate, 79.2Gy to the prostate Field orientation: Dynamic arc VMAT Sustainable Communities Designer Target Coverage (70Gy isodose line indicated): SPECIAL [...] AM EDT Office Visit Hematology/Oncology at [address] [phone] Adrianne Ramon MD [facility] HEMATOLOGY [place] [address] Yael Merlos APRN [facility] HEMATOLOGY [place] [address] 10/03/2023 10:30 AM EDT Infusion Hematology Oncology at [address] [phone] 10/10/2023 2:45 PM EDT Appointment XRay at [address] [place] [address] Micha Givens Jr., MD [facility] HEMATOLOGY [place] [address] 10/10/2023 3:00 PM EDT Appointment Non-[place]vasive [place] [address] 10/10/2023 3:30 PM EDT Appointment [place] [address] 10/11/2023 8:30 AM EDT Infusion Hematology Oncology at [address] [phone] documented as of this encounter Visit Diagnoses Not on filedocumented in this encounter Care Teams Metal Furniture Panel Coverer Relationship Specialty Start Date End Date Bobby Headley MD [address] [place] [address] PCP - General 01/29/14 11/28/17 documented as of this encounter
--- OUTSIDE RECORDS SUMMARY | 2023-10-03 03:16 | XMS_ITS | Encounter Summary ---
[place] [address] Care Team Providers Care Workers Compensation Coordinator Name Role Phone Bobby Headley MD Primary Care Provider [phone] Encounter Details Date Type Department Care Team (Late Contact Info) Description 09/24/2014 4:13 PM EDT - 09/24/2014 11:59 PM EDT [place] [phone] Tk Vergara MD [address] [place] [address] Discharge Disposition: Home Social History Tobacco Use [...] AM EDT Office Visit Hematology/Oncology at [address] [phone] Adrianne Ramon MD [facility] [place] [address] Yael Merlos, KARLA [facility] [place] [address] 10/03/2023 10:30 AM EDT Infusion Hematology Oncology at [address] [phone] 10/10/2023 2:45 PM EDT Appointment XRay at [address] [place] [phone] Micha Givens Jr., MD [facility] [place] [address] 10/10/2023 3:00 PM EDT Appointment Non-Invasive [place] [phone] 10/10/2023 3:30 PM EDT [place] [phone] 10/11/2023 8:30 AM EDT Infusion Hematology Oncology at [address] [phone] documented as of this encounter Procedures Procedure Name Priority Date/Time Associated Diagnosis Comments SURGICAL PATHOLOGY REPORT Routine 09/24/2014 10:06 AM EDT documented in this encounter Results * Surgical Pathology Report (09/24/2014 10:06 AM EDT) Final Diagnosis ? [facility] ? Provider: ?? TK VERGARA ?? Pt. Name: ?? CHEO MORFIN ? Acc #: ?[id number] ?Pt. ? Col Date: ?? 09/24/2014 ?/Sex: ?1950,(64 years),Male ? Rec Date: ?? 09/25/2014 ?LOC: ?OPW ? SURGICAL PATHOLOGY ? DIAGNOSIS ? CONSULTATION CASE ? Outside slides labeled [id number], collection date 09/01/2014 ? A - Prostatic [...] needle biopsy, right mid apex: ? 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 approximately 45% [...] mid apex: ? Benign prostatic tissue. ? [facility] ? Provider: ?? TK VERGARA ?? Pt. Name: ?? CHEO MORFIN ? Acc #: ?[id number] ?Pt. ? Col Date: ?? 09/24/2014 ?/Sex: [...] description not recorded. ? Whole slide scan: ?[id number] ? GROSS DESCRIPTION ? [facility] ([facility]) pathology slide(s) are ? reviewed. ??Refer to Diagnosis and Specimen Submitted for specific case ? information. ? For the full text of the [facility] report(s) please refer to Non-DH ? Documentation Pathology in the electronic health record (eDH). ? CLINICAL INFORMATION ? Specimen Submitted: ? CONSULTATION CASE ? A - 20 slides labeled [id number], collection date 09/01/2014. ? [id number] ? Report to: ? [facility] ? Surgical Pathology Department ? [facility], [facility], 2nd Floor ? [address] ? [place], [place] ??[address] ? 09/28/2014 3:18 PM EDT [facility] Consult Case 09/24/2014 10:0 6 AM EDT 09/24/2014 10:06 AM EDT Tk Vergara MD PATHOLOGY/CYTOLOGY O RDERABLES [facility] [place] [phone] documented in this encounter Visit Diagnoses Not on filedocumented in this encounter Care Teams Workers Compensation Coordinator Relationship Specialty Start Date End Date Bobby Headley MD [address] [place] [address] PCP - General 01/29/14 11/28/17 documented as of this encounter
--- OUTSIDE RECORDS SUMMARY | 2023-10-03 03:16 | XMS_ITS | Encounter Summary ---
[place] [address] Care Team Providers Care Mental Health Social Worker Name Role Phone Bobby Headley MD Primary Care Provider [phone] Encounter Details Date Type Department Care Team (Late Contact Info) Description 10/21/2014 Orders Only Radiation Oncology at [address] [phone] Nitin Stauffer MD [address] [place] [address] DR RADIATION ONCOLOGY [place], [place] [phone] Social History Tobacco Use Types Packs/Day Years [...] 10:00 AM EDT Office Visit Hematology/Oncology at [address] [phone] Adrianne Ramon MD [facility] [place] [address] Yael Merlos, PURCHASING/RECEIVING [facility] [place] [address] 10/03/2023 10:30 AM EDT Infusion Hematology Oncology at [address] [address] 10/10/2023 2:45 PM EDT Appointment XRay at [address] [place] [address] Micha Givens Jr., MD [facility] DR HEMATOLOGY [place] [address] 10/10/2023 3:00 PM EDT Appointment Non-Invasive [place] [address] 10/10/2023 3:30 PM EDT Appointment [place] [address] 10/11/2023 8:30 AM EDT Infusion Hematology Oncology at [address] [phone] documented as of this encounter Procedures Procedure [...] is a Non-reportable exam Nitin Stauffer MD [facility] ORD ERABLES documented in this encounter Visit Diagnoses Not on filedocumented in this encounter Care Teams Mental Health Social Worker Relationship Specialty Start Date End Date Bobby Headley MD [address] [place] [address] PCP - General 01/29/14 11/28/17 documented as of this encounter
--- OUTSIDE RECORDS SUMMARY | 2023-10-03 03:16 | XMS_ITS | Encounter Summary ---
Author Organization [facility] [place] [address] Care Team Providers Care Bad Cloth Checker Name Role Phone Bobby Headley MD Primary Care Provider [phone] Encounter Details Date Type Department Care Team ([facility] Contact Info) Description 03/04/2014 4:07 PM EST - 03/04/2014 11:59 PM EST Hospital Encounter [place] [address] Testis mass Social History Tobacco Use Types [...] 10:00 AM EDT Office Visit Hematology/Oncology at [address] [phone] Adrianne Ramon MD [facility] DR HEMATOLOGY [place] [address] Yael Merlos, ADZING AND BORING MACHINE HELPER [facility] HEMATOLOGY [place] [address] 10/03/2023 10:30 AM EDT Infusion Hematology Oncology at [address] [phone] 10/10/2023 2:45 PM EDT Appointment XRay at [address] [place] [address] Landry Givens Jr., MD [facility] DR HEMATOLOGY [place] [address] 10/10/2023 3:00 PM EDT Appointment Non-[place] [phone] 10/10/2023 3:30 PM EDT Appointment [place] [phone] 10/11/2023 8:30 AM EDT Infusion Hematology Oncology at [address] [phone] documented as of this encounter Procedures Procedure Name Priority Date/Time Associated Diagnosis Comments US SCROTUM Routine 03/04/2014 4:46 PM EST Testis mass documented in this encounter Results * US scrotum (03/04/2014 4:46 PM EST) Anatomical Region Laterality Modality Pelvis Ultrasound 03/04/2014 4:46 PM EST Narrative 03/04/2014 5:00 PM EST Scrotal ?(Signed Final 03/04/2014 05:00 ? pm) Patient Info ID #: ? [id number] ?: ??[birth year] (63 yrs) Name: ? CHEO MORFIN ? Visit Date: 03/04/2014 04:39 pm Performed By Performed By: ?Hannah Wahl RDMS Attending: ? Alexandre OCASIO, Jaime Dumas Referred By: ? LANDRY NUNEZ MD Service(s) Provided ??[facility] - Ultrasound Scrotum and Contents with ?91587, [address] ??Vascular - [id number], [id number] Indications ??Evaluate Right testicle hx of testis [...] 03/04/2014 05:00 pm) Patient Info ID #: [id number] : [birth year] (63 yrs) Name: CHEO MORFIN Visit Date: 03/04/2014 04:39 pm Performed By Performed By: Hannah Wahl RDMS Attending: Jaime Schroeder MD Referred By: LANDRY NUNEZ MD Service(s) Provided [facility] - Ultrasound Scrotum and Contents with [address], [address] Vascular - [id number], [id number] Indications Evaluate Right testicle hx of testis [...] organs documented in this encounter Care Teams Bad Cloth Checker Relationship Specialty Start Date End Date Bobby Headley MD [address] [place] [address] PCP - General 01/29/14 11/28/17 documented as of this encounter
--- OUTSIDE RECORDS SUMMARY | 2023-10-03 03:16 | XMS_ITS | Encounter Summary ---
[place] [address] Care Team Providers Care Indigo Mixer Name Role Phone Bobby Headley MD Primary Care Provider [phone] Encounter Details Date Type Department Care Team (Late st Contact Info) Description 10/14/2014 8:30 AM EDT Procedure visit Radiation Oncology at [address] [phone] Nitin Stauffer MD [address] [place] [address] DR RADIATION ONCOLOGY [place], [place] [phone] Cancer of prostate with intermediate recurrence risk [...] to undergo MRI of the prostate at [facility] * Christine Fernando RN - 10/14/2014 8:26 [...] needed for mild discomfort. He has the [facility] phone number and verbalized understanding to ask for the radiation control health physicist radiation oncologist if he needs to after clinic hours. Time of discharge: 10:00 vital signs stable,and gait steady and dressed himself. Dr Stauffer saw him briefly before discharge. documented in this encounter Plan of Treatment Upcoming Encounters Date Type Department Care Team (Late st Contact Info) Description 10/03/2023 10:00 AM EDT Office Visit Hematology/Oncology at [address] [phone] Adrianne Ramon MD [facility] HEMATOLOGY [place] [address] Yael Merlos APRN [facility] [place] [address] 10/03/2023 10:30 AM EDT Infusion Hematology Oncology at [address] [address] 10/10/2023 2:45 PM EDT Appointment XRay at [address] [place] [address] Micha Givens Jr., MD [facility] DR HEMATOLOGY [place] [address] 10/10/2023 3:00 PM EDT Appointment Non-[place] [phone] 10/10/2023 3:30 PM EDT Appointment [place] [phone] 10/11/2023 8:30 AM EDT Infusion Hematology Oncology at [address] [phone] documented as of this encounter Visit Diagnoses Diagnosis Cancer of prostate with intermediate recurrence risk (stage T2b-c or Cierra 7 or PSA 10-20) Malignant neoplasm of prostate documented in this encounter Care Teams Indigo Mixer Relationship Specialty Start Date End Date Bobby Headley MD [address] [place] [address] PCP - General 01/29/14 11/28/17 documented as of this encounter
--- OUTSIDE RECORDS SUMMARY | 2023-10-03 03:16 | XMS_ITS | Encounter Summary ---
[place] [address] Care Team Providers Care Rn Gyn Name Role Phone Bobby Headley MD Primary Care Provider [phone] Reason for Visit * Reason Comments Radiation Follow-up prostate cancer Encounter Details Date Type Department Care Team (Late st Contact Info) Description 09/09/2015 10:30 AM EDT Office Visit Radiation Oncology at [address] [phone] Anna Carr [address] [place] [address] Malignant neoplasm of prostate Social [...] 5.4 Vitals Office Visit from 09/09/2015 in [facility] Radiation Oncology Weight - Scale 93.4 [...] prostate cancer with pretreatment PSA of 5.4 [place] 4+3=7. He was treated with external beam [...] elevated at 5.4 with only 9% free. [place] with Dr. Vergara July 2014 who offered biopsy which was performed 09/01/14, demonstrating Gleason4 + 3 disease in a single core at the right apex. Forty-five percent of that core did appear to be involved. Perineural invasion was not seen. Pathology had been reviewed here at [facility]. 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 He will be going to [place] in September to attend a [employer] tournament. He feels he is coping well. [...] 100 Vitals Office Visit from 09/09/2015 in [facility] Radiation Oncology Weight - Scale 93.4 [...] Office Visit Hematology/Oncology at [address] [phone] Adrianne Ramon MD [facility] HEMATOLOGY [place] [address] Yael Merlos APRN [facility] HEMATOLOGY [place] [address] 10/03/2023 10:30 AM EDT Infusion Hematology Oncology at [address] [phone] 10/10/2023 2:45 PM EDT Appointment XRay at [address] [place] [address] Micha Givens Jr., MD [facility] HEMATOLOGY [place] [address] 10/10/2023 3:00 PM EDT Appointment Non-[place] [address] 10/10/2023 3:30 PM EDT Appointment [place] [address] 10/11/2023 8:30 AM EDT Infusion Hematology Oncology at [address] [phone] documented as of this encounter Visit Diagnoses Diagnosis Malignant neoplasm of prostate documented in this encounter Care Teams Rn Gyn Relationship Specialty Start Date End Date Bobby Headley MD [address] [place] [address] PCP - General 01/29/14 11/28/17 documented as of this encounter
--- OUTSIDE RECORDS SUMMARY | 2023-10-03 03:16 | XMS_ITS | Encounter Summary ---
[place] [address] Care Team Providers Care Water Jet Operator Name Role Phone Bobby Headley MD Primary Care Provider [phone] Encounter Details Date Type Department Care Team (Late st Contact Info) Description 12/02/2014 Notes Only Radiation Oncology at [address] [phone] Shelley Cason MSW OFFICE OF CARE MANAGEMENT [...] Resources: Pt agreeable to participate in the [place] [facility]. Provided him with a brochure and will make outreach to Arlyn Gong RN, Chronic Precision Agriculture Specialist, [facility]. Adjustment to Illness/Mental Health Issues: Pt [...] 10:00 AM EDT Office Visit Hematology/Oncology at [address] [address] Adrianne Ramon MD [facility] HEMATOLOGY [place] [address] Yael Merlos APRN [facility] HEMATOLOGY [place] [address] 10/03/2023 10:30 AM EDT Infusion Hematology Oncology at [address] [address] 10/10/2023 2:45 PM EDT Appointment XRay at [address] [place] [address] Micha Givens Jr., MD [facility] HEMATOLOGY [place] [address] 10/10/2023 3:00 PM EDT Appointment Non-[place]vasive [place] [address] 10/10/2023 3:30 PM EDT Appointment [place] [address] 10/11/2023 8:30 AM EDT Infusion Hematology Oncology at [address] [phone] documented as of this encounter Visit Diagnoses Not on filedocumented in this encounter Care Teams Water Jet Operator Relationship Specialty Start Date End Date Bobby Headley MD [address] [place], [place] [address] PCP - General 01/29/14 11/28/17 documented as of this encounter
--- OUTSIDE RECORDS SUMMARY | 2023-10-03 03:16 | XMS_ITS | Encounter Summary ---
Author Organization [facility] [place] [address] Care Team Providers Care Field Organizer Name Role Phone Bobby Headley MD Primary Care Provider [phone] Encounter Details Date Type Department Care Team (Late st Contact Info) Description 12/01/2015 10:15 AM EDT Office Visit Hematology/Oncology at [address] [phone] Annika Quezada APRN [facility] [place] [address] Prostate cancer Social History Tobacco Use Types [...] elevated at 5.4 with only 9% free. [place] with Dr. Vergara July 2014 who offered biopsy which was performed 09/01/14, demonstrating Gleason4 + 3 disease in a single core at the right apex. Forty-five percent of that core did appear to be involved. Perineural invasion was not seen. Pathology had been reviewed here at [facility]. 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 Smoking [...] to their sporting events. He went to [place] in September to attend a [employer] tournament and had a great time. He [...] AM EDT Office Visit Hematology/Oncology at [address] [address] Adrianne Ramon MD [facility] HEMATOLOGY AND ONCOLOGY [place] [address] Yael Merlos APRN [facility] HEMATOLOGY AND ONCOLOGY [place] [address] 10/03/2023 10:30 AM EDT Infusion Hematology Oncology at [address] [address] 10/10/2023 2:45 PM EDT Appointment XRay at [address] [place] [address] Micha Givens Jr., MD [facility] DR HEMATOLOGY [place] [address] 10/10/2023 3:00 PM EDT Appointment Non[place] [address] 10/10/2023 3:30 PM EDT Appointment [place] [address] 10/11/2023 8:30 AM EDT Infusion Hematology Oncology at [address] [phone] documented as of this encounter Visit Diagnoses Diagnosis Prostate cancer Malignant neoplasm of prostate documented in this encounter Care Teams Field Organizer Relationship Specialty Start Date End Date Bobby Headley MD [address] [place] [address] PCP - General 01/29/14 11/28/17 documented as of this encounter
--- OUTSIDE RECORDS SUMMARY | 2023-10-03 03:16 | XMS_ITS | Encounter Summary ---
[place] [address] Care Team Providers Care Sulfate Drier Machine Operator Name Role Phone Bobby Headley MD Primary Care Provider [phone] Reason for Visit * Reason Comments Testicular Pain Encounter Details Date Type Department Care Team (Late st Contact Info) Description 03/04/2014 3:30 PM EST Office [place] [phone] Landry Lunsford MD [facility] [place] [address] Testis mass; Testis cancer, right Discharge Disposition: [...] in this encounter Progress Notes * Landry Lunsford MD - 03/04/2014 3:06 PM EST Images from the original note were not included. Patient Name: Cheo Freire Date of Service: 03/04/2014 Primary Care Provider: BOBBY HEADLEY MD Reason for Visit: Cheo Freire is a 63 y.o. 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 The patient has been for 24 years [...] notable for a small left testicle ~ [id number]. There is a tiny firm area palpable [...] 10:00 AM EDT Office Visit Hematology/Oncology at [address] [phone] Adrianne Ramon MD [facility] DR HEMATOLOGY AND [place]COL[place] [address] Yael Merlos APRN [facility] DR [place] [address] 10/03/2023 10:30 AM EDT Infusion Hematology Oncology at [address] [phone] 10/10/2023 2:45 PM EDT Appointment XRay at [address] [place] [address] Landry Givens Jr., MD [facility] HEMATOLOGY [place] [address] 10/10/2023 3:00 PM EDT Appointment Non-[place] [phone] 10/10/2023 3:30 PM EDT Appointment [place] [address] 10/11/2023 8:30 AM EDT Infusion Hematology Oncology at [address] [phone] documented as of this encounter Procedures Procedure [...] ? pm) Patient Info ID #: ? [id number] ?: ??[birth year] (63 yrs) Name: ? CHEO FREIRE ? Visit Date: 03/04/2014 04:39 pm Performed By Performed By: ?Hannah Wahl RDMS Attending: ? Alexandre OCASIO, Jaime Dumas Referred By: ? LANDRY LUNSFORD MD Service(s) Provided ??[facility] - Ultrasound Scrotum and Contents with ?99337, [address]3656 ??Vascular - [id number], [id number] Indications ??Evaluate Right testicle hx of testis [...] 03/04/2014 05:00 pm) Patient Info ID #: [id number] : [birth year] (63 yrs) Name: CHEO FREIRE Visit Date: 03/04/2014 04:39 pm Performed By Performed By: Hannah Wahl RDMS Attending: Jaime Schroeder MD. Referred By: LANDRY LUNSFORD MD Service(s) Provided [facility] - Ultrasound Scrotum and Contents with [address], [address] Vascular - [id number], [id number] Indications Evaluate Right testicle hx of testis [...] Signed Final Report 03/04/2014 05:00 pm Landry Lunsford MD IM US GEN ORDERABLE S * [...] Resulting Agency Comment Spec In Lab Landry Lunsford MD HEMATOLOGY ORDERABLE S PHILLIP LEEENNIUM * (ABNORMAL) Hemogram (03/04/2014 4:03 PM EST) [...] Resulting Agency Comment Spec In Lab Landry Lunsford MD HEMATOLOGY ORDERABLE S Performing Organization Address City/[facility]/ZIP Co de Phone Number PHILLIP FAJARDOIUM * AFP tumor marker (03/04/2014 4:03 PM EST) Alpha Fetoprotein 2.3 <=8.3 ng/mL [facility] Blood specimen (specimen) 03/04/2014 4:03 PM EST 03/04/2014 4:07 PM EST Narrative Resulting Agency Comment Spec In Lab Landry Lunsford MD CHEMISTRY ORDERABLES [facility] * Beta HCG, quantitative (03/04/2014 4:03 PM EST) Beta Human Chorionic Gonadotropin, Quantitative <1 0 - 2 mlU/ML [facility] Comment: REFERENCE RANGES NON- FEMALE: ??Less [...] - 56,451 ?17 weeks ? 8,175 - ,868 ?18 weeks ? 8,099 - 20,176 Blood specimen (specimen) 03/04/2014 4:03 PM EST 03/04/2014 4:07 PM EST Narrative Resulting Agency Comment Spec In Lab Landry Lunsford MD CHEMISTRY ORDERABLES CERNER MILLENNIUM documented in this encounter Visit Diagnoses Diagnosis Testis mass Other specified disorder of male genital organs Testis cancer, right Testis mass Other specified disorder of male genital organs documented in this encounter Care Teams Sulfate Drier Machine Operator Relationship Specialty Start Date End Date Bobby Headley MD [address] [place] [address] PCP - General 01/29/14 11/28/17 documented as of this encounter
--- OUTSIDE RECORDS SUMMARY | 2023-10-03 03:16 | XMS_ITS | Encounter Summary ---
Author Organization [facility] [place] [address] Care Team Providers Care Coping Machine Assembler Name Role Phone Bobby Headley MD Primary Care Provider [phone] Encounter Details Date Type Department Care Team (Late st Contact Info) Description 09/25/2014 External [place] [phone] Provider, Scanning Social History Tobacco Use Types [...] AM EDT Office Visit Hematology/Oncology at [address] [phone] Adrianne Ramon MD [facility] DR HEMATOLOGY [place] [address] Yael Merlos APRN [facility] DR HEMATOLOGY [place] [address] 10/03/2023 10:30 AM EDT Infusion Hematology Oncology at [address] [phone] 10/10/2023 2:45 PM EDT Appointment XRay at [address] [place] [phone] Micha Givens Jr., MD [facility] DR HEMATOLOGY [place] [address] 10/10/2023 3:00 PM EDT Appointment Non-[place] [address] 10/10/2023 3:30 PM EDT Appointment [place] [address] 10/11/2023 8:30 AM EDT Infusion Hematology Oncology at [address] [phone] documented as of this encounter Procedures Procedure Name Priority Date/Time Associated Diagnosis Comments SURGICAL PATHOLOGY SCAN Routine 09/25/2014 documented in this encounter Results * Scan Doc: Surgical Pathology (09/25/2014) John Vergara MD MEDIA MGR SCAN EXT O RDR/RSLT documented in this encounter Visit Diagnoses Not on filedocumented in this encounter Care Teams Coping Machine Assembler Relationship Specialty Start Date End Date Bobby Headley MD [address] [place] [address] PCP - General 01/29/14 11/28/17 documented as of this encounter
--- OUTSIDE RECORDS SUMMARY | 2023-10-03 03:16 | XMS_ITS | Encounter Summary ---
Author Organization [facility] [place] [address] Care Team Providers Care Continuing Education Director Name Role Phone Bobby Headley MD Primary Care Provider [phone] Encounter Details Date Type Department Care Team (Late Contact Info) Description 12/30/2013 [place] [address] Micha Nunez MD [facility] [place] [address] Social History Tobacco Use Types Packs/Day Years [...] AM EDT Office Visit Hematology/Oncology at [address] [address] Adrianne Ramon MD [facility] DR HEMATOLOGY [place] [address] Yael Merlos APRN [facility] DR HEMATOLOGY [place] [address] 10/03/2023 10:30 AM EDT Infusion Hematology Oncology at [address] [address] 10/10/2023 2:45 PM EDT Appointment XRay at [address] [place] [address] Micha Givens Jr., MD [facility] HEMATOLOGY [place] [address] 10/10/2023 3:00 PM EDT Appointment Non-[place] [address] 10/10/2023 3:30 PM EDT Appointment [place] [address] 10/11/2023 8:30 AM EDT Infusion Hematology Oncology at [address] [address] documented as of this encounter Procedures Procedure [...] on filedocumented in this encounter Care Teams Continuing Education Director Relationship Specialty Start Date End Date Bobby Headley MD [address] [place] [address] PCP - General 01/29/14 11/28/17 documented as of this encounter
--- OUTSIDE RECORDS SUMMARY | 2023-10-03 03:16 | XMS_ITS | Encounter Summary ---
[place] [address] Care Team Providers Care Stock Drier Tender Name Role Phone Bobby Headley MD Primary Care Provider [phone] Encounter Details Date Type Department Care Team (Late Contact Info) Description 09/30/2014 Orders Only Radiation Oncology at [address] [address] Nitin Stauffer MD [address] [place] [address] DR RADIATION ONCOLOGY [place], [place] [id number] Social History Tobacco Use Types Packs/Day Years [...] 10:00 AM EDT Office Visit Hematology/Oncology at [address] [address] Adrianne Ramon MD [facility] HEMATOLOGY [place] [address] Yael Merlos, BIOMEDICAL ENGINEERING SUPERVISOR [facility] HEMATOLOGY [place] [address] 10/03/2023 10:30 AM EDT Infusion Hematology Oncology at [address] [address] 10/10/2023 2:45 PM EDT Appointment XRay at [address] [place] [address] Micha Givens Jr., MD [facility] DR HEMATOLOGY [place] [address] 10/10/2023 3:00 PM EDT Appointment Non-[place]vasive [place] [address] 10/10/2023 3:30 PM EDT Appointment [place] [address] 10/11/2023 8:30 AM EDT Infusion Hematology Oncology at [address] [address] documented as of this encounter Visit Diagnoses Not on filedocumented in this encounter Care Teams Stock Drier Tender Relationship Specialty Start Date End Date Bobby Headley MD [address] [place] [address] PCP - General 01/29/14 11/28/17 documented as of this encounter
--- OUTSIDE RECORDS SUMMARY | 2023-10-03 03:16 | XMS_ITS | Encounter Summary ---
[place] [address] Care Team Providers Care Economic Analysis Director Name Role Phone Bobby Headley MD Primary Care Provider [phone] Reason for Visit * Reason Comments Prostate Cancer Lupron injection Encounter Details Date Type Department Care Team (Late st Contact Info) Description 12/22/2014 8:30 AM EST Infusion Hematology Oncology at [address] [address] Malignant neoplasm of prostate Social [...] AM EDT Office Visit Hematology/Oncology at [address] [address] Adrianne Ramon MD [facility] HEMATOLOGY [place] [address] Yael Merlos APRN [facility] HEMATOLOGY [place] [address] 10/03/2023 10:30 AM EDT Infusion Hematology Oncology at [address] [address] 10/10/2023 2:45 PM EDT Appointment XRay at [address] [place] [address] Micha Givens Jr., MD [facility] HEMATOLOGY [place] [address] 10/10/2023 3:00 PM EDT Appointment Non-[place] [address] 10/10/2023 3:30 PM EDT Appointment [place] [address] 10/11/2023 8:30 AM EDT Infusion Hematology Oncology at [address] [phone] documented as of this encounter Visit Diagnoses [...] Gluteal documented in this encounter Care Teams Economic Analysis Director Relationship Specialty Start Date End Date Bobby Headley MD [address] [place] [address] PCP - General 01/29/14 11/28/17 documented as of this encounter
--- OUTSIDE RECORDS SUMMARY | 2023-10-03 03:16 | XMS_ITS | Encounter Summary ---
Author Organization Formerly [facility] [place] [address] Care Team Providers Care Artificial Inseminator Name Role Phone Bobby Headley MD Primary Care Provider [phone] Encounter Details Date Type Department Care Team (Latest Contact Info) Description 01/07/2015 Unscheduled Encounter Hematology/Oncology at [address] [phone] [facility] [place] [address] Dietary counseling and surveillance; Dietary counseling Social [...] Narvaez RD - 01/07/2015 8:45 AM EST [facility] Initial Dietitian Assessment Seen By: Gay Narvaez MS, RD, SEED TESTER, LD Referred by: Dr. Stauffer Reason for [...] AM EDT Office Visit Hematology/Oncology at [address] [address] Adrianne Ramon MD [facility] DR HEMATOLOGY [place] [address] Yael Merlos, KARLA [facility] HEMATOLOGY [place] [address] 10/03/2023 10:30 AM EDT Infusion Hematology Oncology at [address] [phone] 10/10/2023 2:45 PM EDT Appointment XRay at [address] [place] [address] Micha Givens Jr., MD [facility] HEMATOLOGY [place] [address] 10/10/2023 3:00 PM EDT Appointment Non-[place]vasive [place] [address] 10/10/2023 3:30 PM EDT Appoint[place] [address] 10/11/2023 8:30 AM EDT Infusion Hematology Oncology at [address] [phone] documented as of this encounter Visit Diagnoses Diagnosis Dietary counseling and surveillance Dietary surveillance and counseling Dietary counseling Dietary surveillance and counseling documented in this encounter Care Teams Artificial Inseminator Relationship Specialty Start Date End Date Bobby Headley MD [address] [place] [address] PCP - General 01/29/14 11/28/17 documented as of this encounter
--- OUTSIDE RECORDS SUMMARY | 2023-10-03 03:16 | XMS_ITS | Encounter Summary ---
[place] [address] Care Team Providers Care Meteorology Faculty Member Name Role Phone Bobby Headley MD Primary Care Provider [phone] Reason for Visit * Reason Comments Radiation Follow-up prostate cancer Encounter Details Date Type Department Care Team (Late st Contact Info) Description 02/25/2015 1:45 PM EST Office Visit Radiation Oncology at [address] [phone] [address] Carr [address] [place] [address] Malignant neoplasm of prostate Social [...] this encounter Progress Notes * Anna Carr, SENIOR PRODUCTION SUPERVISOR - 02/24/2015 4:31 PM EST Images from [...] elevated at 5.4 with only 9% free. [place] with Dr. Vergara July 2014 who offered biopsy which was performed 09/01/14, demonstrating Gleason4 + 3 disease in a single core at the right apex. Forty-five percent of that core did appear to be involved. Perineural invasion was not seen. Pathology had been reviewed here at [facility]. 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 Smoking [...] Negative. Vitals Office Visit from 02/25/2015 in [facility] Radiation Oncology Weight - Scale 90.266 [...] prostate cancer with pretreatment PSA of 5.4 [place] 4+3=7. He was treated with external beam [...] AM EDT Office Visit Hematology/Oncology at [address] [phone] Adrianne Ramon MD [facility] HEMATOLOGY [place] [address] Yael Merlos APRN [facility] HEMATOLOGY AND ONCOLOGY [place] [address] 10/03/2023 10:30 AM EDT Infusion Hematology Oncology at [address] [address] 10/10/2023 2:45 PM EDT Appointment XRay at [address] [place] [address] Micha Givens Jr., MD [facility] HEMATOLOGY AND ONCOLOGY [place] [address] 10/10/2023 3:00 PM EDT Appointment Non-[place] [address] 10/10/2023 3:30 PM EDT Appointment [place] [address] 10/11/2023 8:30 AM EDT Infusion Hematology Oncology at [address] [phone] documented as of this encounter Visit Diagnoses Diagnosis Malignant neoplasm of prostate documented in this encounter Care Teams Meteorology Faculty Member Relationship Specialty Start Date End Date Bobby Headley MD [address] [place] [address] PCP - General 01/29/14 11/28/17 documented as of this encounter
--- OUTSIDE RECORDS SUMMARY | 2023-10-03 03:16 | XMS_ITS | Encounter Summary ---
[place] [address] Care Team Providers Care Oracle Applications Analyst Name Role Phone Bobby Headley MD Primary Care Provider [phone] Encounter Details Date Type Department Care Team (Late st Contact Info) Description 12/24/2014 8:15 AM EST Office Visit Radiation Oncology at [address] [phone] Nitin Stauffer MD [address] [place] [address] DR RADIATION ONCOLOGY [place], [place] [id number] Cancer of prostate with intermediate recurrence risk [...] Uncontrollable bleeding A Radiation Oncology doctor is field installation technician after our normal hours and on weekends. To call for urgent medical issues from radiation treatments that can not wait until normal business hours, please call and have the ballast cleaning machine operator page the Radiation Oncologist field installation technician. Nitin Ramirez MD documented in this encounter Progress Notes * Nitin Stauffer MD - 12/24/2014 8:16 AM EST [facility] On Treatment Visit Patient ID: Cheo [...] AM EDT Office Visit Hematology/Oncology at [address] [phone] Adrianne Ramon MD [facility] HEMATOLOGY [place] [address] Yael Merlos APRN [facility] HEMATOLOGY [place] [address] 10/03/2023 10:30 AM EDT Infusion Hematology Oncology at [address] [phone] 10/10/2023 2:45 PM EDT Appointment XRay at [address] [place] [address] Micha Givens Jr., MD [facility] HEMATOLOGY [place] [address] 10/10/2023 3:00 PM EDT Appointment Non-Invasive [place] [address] 10/10/2023 3:30 PM EDT [place] [address] 10/11/2023 8:30 AM EDT Infusion Hematology Oncology at [address] [phone] documented as of this encounter Visit Diagnoses Diagnosis Cancer of prostate with intermediate recurrence risk (stage T2b-c or [place] 7 or PSA 10-20) Malignant neoplasm of prostate documented in this encounter Care Teams Oracle Applications Analyst Relationship Specialty Start Date End Date Bobby Headley MD [address] [place] [address] PCP - General 01/29/14 11/28/17 documented as of this encounter
--- OUTSIDE RECORDS SUMMARY | 2023-10-03 03:16 | XMS_ITS | Encounter Summary ---
[place] [address] Care Team Providers Care Boom Cat Operator Name Role Phone Bobby Headley MD Primary Care Provider [phone] Encounter Details Date Type Department Care Team (Latest Contact Info) Description 10/19/2014 9:57 AM EDT - 10/19/2014 11:59 PM EDT [place] [phone] Nitin Stauffer MD [address] [place] [address] DR RADIATION ONCOLOGY [place], [place] [phone] Cancer of prostate with intermediate recurrence risk [...] Chewable Take 325 mg by mouth daily. dexamethasone (DECADRON) 2 [...] AM EDT Office Visit Hematology/Oncology at [address] [phone] Adrianne Ramon MD [facility] [place] [address] Yael Merlos APRN [facility] HEMATOLOGY [place] [address] 10/03/2023 10:30 AM EDT Infusion Hematology Oncology at [address] [address] 10/10/2023 2:45 PM EDT Appointment XRay at [address] [place] [address] Micha Givens Jr., MD [facility] HEMATOLOGY [place] [address] 10/10/2023 3:00 PM EDT Appointment Non-[place] [address] 10/10/2023 3:30 PM EDT [place] [address] 10/11/2023 8:30 AM EDT Infusion Hematology Oncology at [address] [phone] documented as of this encounter Procedures Procedure Name Priority Date/Time Associated Diagnosis Comments MRI PELVIS SOFT TISSUE ([facility]) WWO CONTRAST Routine 10/19/2014 11:54 AM EDT [...] 2. Staging. ??Date of sextant biopsy: 09/24/2014 [place] score: 4+3 TECHNIQUE: Multiparametric MRI of the [...] 2. Staging. Date of sextant biopsy: 09/24/2014 [place] score: 4+3 TECHNIQUE: Multiparametric MRI of the [...] mLs documented in this encounter Care Teams Boom Cat Operator Relationship Specialty Start Date End Date Bobby Headley MD [address] [place] [address] PCP - General 01/29/14 11/28/17 documented as of this encounter
--- OUTSIDE RECORDS SUMMARY | 2023-10-03 03:16 | XMS_ITS | Encounter Summary ---
Author Organization [facility] Address [facility] [place] [address] Care Team Providers Care Lock Maintenance Supervisor Name Role Phone Bobby Headley MD Primary Care Provider [phone] Reason for Visit * Reason Comments Prostate Cancer Lupron 22.5 mg into left buttocks Encounter Details Date Type Department Care Team (Late st Contact Info) Description 09/29/2014 1:00 PM EDT Infusion Hematology Oncology at [address] [phone] CL[address], [facility] HEM/ONC William German MD [facility] DR [place] [address] Malignant neoplasm of prostate Discharge Disposition: Home [...] AM EDT Office Visit Hematology/Oncology at [address] [phone] Adrianne Ramon MD [facility] DR [place] [address] Yeal Merlos APRN [facility] HEMATOLOGY [place] [address] 10/03/2023 10:30 AM EDT Infusion Hematology Oncology at [address] [phone] 10/10/2023 2:45 PM EDT Appointment XRay at [address] [place] [address] Micha Givens Jr., MD [facility] [place] [address] 10/10/2023 3:00 PM EDT Appointment Non-Invasive [place] [address] 10/10/2023 3:30 PM EDT [place]oint[place] [address] 10/11/2023 8:30 AM EDT Infusion Hematology Oncology at [address] [phone] documented as of this encounter Visit Diagnoses Diagnosis Malignant neoplasm of prostate documented in this encounter Administered Medications Inactive Administered Medications - up to 3 most recent administrations Medication Order MAR Action Action Date Dose Rate Site leuprolide (LUPRON) injection 22.5 mg 22.5 mg, Intramuscular, ONCE, 1 dose, On 8/11/15 at 1315, Routine Given 09/29/2014 1:02 PM EDT 22.5 mg Left Gluteal documented in this encounter Care Teams Lock Maintenance Supervisor Relationship Specialty Start Date End Date Bobby Headley MD [address] [place] [address] PCP - General 01/29/14 11/28/17 documented as of this encounter
--- OUTSIDE RECORDS SUMMARY | 2023-10-03 03:16 | XMS_ITS | Encounter Summary ---
Author Organization [facility] [place] [address] Care Team Providers Care Boarding Mother Name Role Phone Bobby Headley MD Primary Care Provider [phone] Encounter Details Date Type Department Care Team (Late Contact Info) Description 09/01/2014 [place] [address] Micha Nunez MD [facility] [place] [address] Social History Tobacco Use Types Packs/Day Years Used Date Smoking Tobacco: Former Cigarettes Sex and Gender Information Value Date Recorded Sex Assigned at Not on file Gender Identity Not on file Sexual Orientation Not on file documented as of this encounter Plan of Treatment Upcoming Encounters Date Type Department Care Team (Late Contact Info) Description 10/03/2023 10:00 AM EDT Office Visit Hematology/Oncology at [address] [phone] Adrianne Ramon MD [facility] DR HEMATOLOGY [place] [address] Yael Merlos APRN [facility] DR [place]EMATOLOGY [place] [address] 10/03/2023 10:30 AM EDT Infusion Hematology Oncology at [address] [address] 10/10/2023 2:45 PM EDT Appointment XRay at [address] [place] [address] Micha Givens Jr., MD [facility] HEMATOLOGY [place] [address] 10/10/2023 3:00 PM EDT Appointment Non-[place]vasive [place] [address] 10/10/2023 3:30 PM EDT Appointment [place] [address] 10/11/2023 8:30 AM EDT Infusion Hematology Oncology at [address] [address] documented as of this encounter Procedures Procedure [...] on filedocumented in this encounter Care Teams Boarding Mother Relationship Specialty Start Date End Date Bobby Headley MD [address] [place] [address] PCP - General 01/29/14 11/28/17 documented as of this encounter
--- OUTSIDE RECORDS SUMMARY | 2023-10-03 03:16 | XMS_ITS | Encounter Summary ---
[place] [address] Care Team Providers Care Rock Cutter Name Role Phone Bobby Headley MD Primary Care Provider [phone] Reason for Visit * Reason Comments On Treatment Visit Encounter Details Date Type Department Care Team (Late st Contact Info) Description 01/19/2015 8:00 AM EST Office Visit Radiation Oncology at [address] [phone] Nitin Stauffer MD [address] [place] [address] [place] [address] Cancer of prostate with intermediate recurrence risk (stage T2b-c or [place] 7 or PSA 10-20) Social History Tobacco [...] Uncontrollable bleeding A Radiation Oncology doctor is retail asset protection specialist after our normal hours and on weekends. To call for urgent medical issues from radiation treatments that can not wait until normal business hours, please call and have the tying machine operator page the Radiation Oncologist retail asset protection specialist. Nitin Ramirez. MD Eh documented in this encounter Progress Notes * Nitin Stauffer MD - 01/19/2015 8:11 AM EST [facility] On Treatment Visit Patient ID: Cheo Freire [...] AM EDT Office Visit Hematology/Oncology at [address] [address] Adrianne Ramon MD [facility] HEMATOLOGY [place] [address] Yael Merlos APRN [facility] HEMATOLOGY [place] [address] 10/03/2023 10:30 AM EDT Infusion Hematology Oncology at [address] [address] 10/10/2023 2:45 PM EDT Appointment XRay at [address] [place] [address] Micha Givens Jr., MD [facility] HEMATOLOGY [place] [address] 10/10/2023 3:00 PM EDT Appointment Non-Invasive [place] [address] 10/10/2023 3:30 PM EDT Appointment [place] [address] 10/11/2023 8:30 AM EDT Infusion Hematology Oncology at [address] [phone] documented as of this encounter Visit Diagnoses Diagnosis Cancer of prostate with intermediate recurrence risk (stage T2b-c or [place] 7 or PSA 10-20) Malignant neoplasm of prostate documented in this encounter Care Teams Rock Cutter Relationship Specialty Start Date End Date Bobby Headley MD [address] [place] [address] PCP - General 01/29/14 11/28/17 documented as of this encounter
--- OUTSIDE RECORDS SUMMARY | 2023-10-03 03:16 | XMS_ITS | Encounter Summary ---
[place] [address] Care Team Providers Care Slate Mixer Name Role Phone Bobby Headley MD Primary Care Provider [phone] Encounter Details Date Type Department Care Team (Late st Contact Info) Description 10/21/2014 11:00 AM EDT Ancillary Appointment Radiation Oncology at [address] [phone] Nitin Stauffer MD [address] [place] [address] DR RADIATION ONCOLOGY [place], [place] [phone] Social History Tobacco Use Types Packs/Day Years [...] do to help manage the side effects. Superintendent Stevedoring - They take the doctors radiation prescription [...] a well balanced diet is recommended. The rn endoscopy and nurse will inform you of any [...] - Sunday 8 AM to 5 PM [facility] phone# [phone] [facility] If you have questions about your radiation [...] in injury A Radiation Oncology doctor is local telephone operator after our normal hours and on weekends. To call for urgent medical issues from radiation treatments that can not wait until normal business hours, please call for either location and have the milk drying machine operator page the Radiation Oncologist in call. documented in this encounter Progress Notes * Nitin Stauffer MD - 10/21/2014 11:16 AM EDT Simulation Note for External Beam Radiation Treatment Planning [facility] Bolivar Freire is a 64 y.o. year [...] of any short term side effects or retirement complications of therapy. I anticipate his prescription [...] AM EDT Office Visit Hematology/Oncology at [address] [phone] Adrianne Ramon MD [facility] HEMATOLOGY [place] [address] Yael Merlos APRN [facility] HEMATOLOGY [place] [address] 10/03/2023 10:30 AM EDT Infusion Hematology Oncology at [address] [phone] 10/10/2023 2:45 PM EDT Appointment XRay at [address] [place] [address] Micha Givens Jr., MD [facility] HEMATOLOGY [place] [address] 10/10/2023 3:00 PM EDT Appointment Non-[place]vasive [place] [address] 10/10/2023 3:30 PM EDT Appoint[place] [address] 10/11/2023 8:30 AM EDT Infusion Hematology Oncology at [address] [phone] documented as of this encounter Visit Diagnoses Not on filedocumented in this encounter Care Teams Slate Mixer Relationship Specialty Start Date End Date Bobby Headley MD [address] [place] [address] PCP - General 01/29/14 11/28/17 documented as of this encounter
--- OUTSIDE RECORDS SUMMARY | 2023-10-03 03:16 | XMS_ITS | Encounter Summary ---
[place] [address] Care Team Providers Care Talent Recruiter Name Role Phone Bobby Headley MD Primary Care Provider [phone] Encounter Details Date Type Department Care Team (Late Contact Info) Description 09/28/2014 Abstract Radiation Oncology at [address] [phone] Christine Garcia, RN Social History Tobacco Use Types Packs/Day [...] AM EDT Office Visit Hematology/Oncology at [address] [phone] Adrianne Ramon MD [facility] HEMATOLOGY [place] [address] Yael Merlos APRN [facility] HEMATOLOGY [place] [address] 10/03/2023 10:30 AM EDT Infusion Hematology Oncology at [address] [phone] 10/10/2023 2:45 PM EDT Appointment XRay at [address] [place] [address] Micha Gievns Jr., MD [facility] HEMATOLOGY AND [place] [phone] 10/10/2023 3:00 PM EDT Appointment [place] [address] 10/10/2023 3:30 PM EDT Appointment [place] [address] 10/11/2023 8:30 AM EDT Infusion Hematology Oncology at [address] [address] documented as of this encounter Visit Diagnoses Not on filedocumented in this encounter Care Teams Talent Recruiter Relationship Specialty Start Date End Date Bobby Headley MD [address] [place] [address] PCP - General 01/29/14 11/28/17 documented as of this encounter
--- OUTSIDE RECORDS SUMMARY | 2023-10-03 03:16 | XMS_ITS | Encounter Summary ---
[place] [address] Care Team Providers Care Warper Fixer Name Role Phone Bobby Headley MD Primary Care Provider [phone] Reason for Visit * Reason Comments Radiation Follow-up prostate cancer Encounter Details Date Type Department Care Team (Late st Contact Info) Description 06/03/2015 3:15 PM EDT Office Visit Radiation Oncology at [address] [phone] [address] Carr [address] RADIATION ONCOLOGY [place], [place] [phone] Malignant neoplasm of prostate Social History Tobacco [...] encounter Progress Notes * Anna Carr [place], WOMEN'S SWIM COACH - 06/02/2015 9:56 AM EDT Images from [...] elevated at 5.4 with only 9% free. [place] with Dr. 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 Smoking [...] sporting events. He will be going to [place] in September to attend a Tryouts tournament. He feels he is coping well. [...] Negative. Vitals Office Visit from 06/03/2015 in [facility] Radiation Oncology Weight - Scale 92.08 kg [...] prostate cancer with pretreatment PSA of 5.4 Yale 4+3=7. He was treated with external beam [...] AM EDT Office Visit Hematology/Oncology at [address] [phone] Adrianne Ramon MD [facility] HEMATOLOGY [place] [address] Yael Merlos APRN [facility] HEMATOLOGY [place] [address] 10/03/2023 10:30 AM EDT Infusion Hematology Oncology at [address] [phone] 10/10/2023 2:45 PM EDT Appointment XRay at [address] [place] [address] Micha Givens Jr., MD [facility] DR HEMATOLOGY [place] [address] 10/10/2023 3:00 PM EDT Appointment Non-[place]vasive [place] [address] 10/10/2023 3:30 PM EDT Appointment [place] [address] 10/11/2023 8:30 AM EDT Infusion Hematology Oncology at [address] [phone] documented as of this encounter Visit Diagnoses Diagnosis Malignant neoplasm of prostate documented in this encounter Care Teams Warper Fixer Relationship Specialty Start Date End Date Bobby Headley MD [address] [place] [address] PCP - General 01/29/14 11/28/17 documented as of this encounter
--- OUTSIDE RECORDS SUMMARY | 2023-10-03 03:16 | XMS_ITS | Encounter Summary ---
[place] [address] Care Team Providers Care Accident Report Clerk Name Role Phone Bobby Headley MD Primary Care Provider Encounter Details Date Type Department Care Team (Late st Contact Info) Description 12/10/2014 11:45 AM EDT Office Visit Radiation Oncology at [address] [phone] Nitin Stauffer MD [address] [place] [address] DR RADIATION ONCOLOGY [place], [place] [phone] Cancer of prostate with intermediate recurrence risk (stage T2b-c or [place] 7 or PSA 10-20) Social History Tobacco [...] Uncontrollable bleeding A Radiation Oncology doctor is personal lines advisor after our normal hours and on weekends. To call for urgent medical issues from radiation treatments that can not wait until normal business hours, please call and have the scrubber operator page the Radiation Oncologist personal lines advisor. Nitin Ramirez MD documented in this encounter Progress Notes * Nitin Stauffer MD - 12/10/2014 11:08 AM EDT [facility] On Treatment Visit Patient ID: [...] AM EDT Office Visit Hematology/Oncology at [address] [phone] Adrianne Ramon MD [facility] HEMATOLOGY [place] [address] Yael Merlos, KARLA [facility] [place] [address] 10/03/2023 10:30 AM EDT Infusion Hematology Oncology at [address] [phone] 10/10/2023 2:45 PM EDT Appointment XRay at [address] [place] [address] Micha Givens Jr., MD [facility] [place] [address] 10/10/2023 3:00 PM EDT Appointment Non-[place]vasive [place] [address] 10/10/2023 3:30 PM EDT Appointment [place] [address] 10/11/2023 8:30 AM EDT Infusion Hematology Oncology at [address] [phone] documented as of this encounter Visit Diagnoses Diagnosis Cancer of prostate with intermediate recurrence risk (stage T2b-c or Cierra 7 or PSA 10-20) Malignant neoplasm of prostate documented in this encounter Care Teams Accident Report Clerk Relationship Specialty Start Date End Date Bobby Headley MD [address] [place] [address] PCP - General 01/29/14 11/28/17 documented as of this encounter
--- OUTSIDE RECORDS SUMMARY | 2023-10-03 03:16 | XMS_ITS | Encounter Summary ---
Author Organization [place] [address] Care Team Providers Care Centrifuge Separator Operator Name Role Phone Bobby Headley MD Primary Care Provider [phone] Encounter Details Date Type Department Care Team (Latest Contact Info) Description 10/05/2014 Unscheduled Encounter Radiation Oncology at [address] [phone] Christine Garcia, RN Malignant neoplasm [...] Prescriptions to get filled and things to pick up attendant from the pharmacy: Two Fleets Enema You [...] relax for the procedure.You will need a tour driver to take you home. ??? Change [...] any other concerns. Future Appointments: MRI at [facility]: 10/19 at 11:10 AM arrive at : Your CT simulation, planning session will be done at [facility]. 10/21 arrive at 10:30. You will see the nurse first for patient education .You will need a comfortably full bladder by 11:00 How to reach us: Radiation Oncology [facility] [place] [address] fax After office hours phone: [phone] - ask for radiation oncology doctor clinical liaison Radiation Oncology [address] [address] documented in this encounter Progress Notes * Christine Fernando RN - 10/05/2014 2:22 PM EDT Radiation Oncology Nurse [place], [place] See AVS for instructions provided to patient and his in preparation for Gold wig maker implant procedure scheduled for Sun10/14/14. Prescriptions for Cipro and Dexamethasone sent to [facility]. documented in this encounter Plan of Treatment Upcoming Encounters Date Type Department Care Team (Late st Contact Info) Description 10/03/2023 10:00 AM EDT Office Visit Hematology/Oncology at [address] [phone] Adrianne Ramon MD [facility] HEMATOLOGY [place] [address] Yael Merlos APRN [facility] [place] [address] 10/03/2023 10:30 AM EDT Infusion Hematology Oncology at [address] [address] 10/10/2023 2:45 PM EDT Appointment XRay at [address] [place] [address] Micha Givens Jr., MD [facility] HEMATOLOGY [place] [address] 10/10/2023 3:00 PM EDT Appointment Non[place] [address] 10/10/2023 3:30 PM EDT Appointment [place] [address] 10/11/2023 8:30 AM EDT Infusion Hematology Oncology at [address] [phone] documented as of this encounter Visit Diagnoses Diagnosis Malignant neoplasm of prostate documented in this encounter Care Teams Centrifuge Separator Operator Relationship Specialty Start Date End Date Bobby Headley MD [address] [place] [address] PCP - General 01/29/14 11/28/17 documented as of this encounter
--- OUTSIDE RECORDS SUMMARY | 2023-10-03 03:16 | XMS_ITS | Encounter Summary ---
[place] [address] Care Team Providers Care Convention Worker Name Role Phone Bobby Headley MD Primary Care Provider [phone] Encounter Details Date Type Department Care Team (Late st Contact Info) Description 12/17/2014 8:15 AM EDT Office Visit Radiation Oncology at [address] [phone] Nitin Stauffer MD [address] [place] [address] DR RADIATION ONCOLOGY [place], [place] [phone] Cancer of prostate with intermediate recurrence risk [...] Uncontrollable bleeding A Radiation Oncology doctor is automotive consultant after our normal hours and on weekends. To call for urgent medical issues from radiation treatments that can not wait until normal business hours, please call and have the regasification plant operator page the Radiation Oncologist automotive consultant. Nitin Ramirez MD documented in this encounter Progress Notes * Nitin Stauffer MD - 12/17/2014 8:10 AM EDT [facility] On Treatment Visit Patient ID: Cheo [...] AM EDT Office Visit Hematology/Oncology at [address] [address] Adrianne Ramon MD [facility] DR [place] [address] Yael Merlos APRN [facility] [place] [address] 10/03/2023 10:30 AM EDT Infusion Hematology Oncology at [address] [phone] 10/10/2023 2:45 PM EDT Appointment XRay at [address] [place] [address] Micha Givens Jr., MD [facility] HEMATOLOGY [place] [address] 10/10/2023 3:00 PM EDT Appointment Non-[place] [address] 10/10/2023 3:30 PM EDT Appointment [place] [address] 10/11/2023 8:30 AM EDT Infusion Hematology Oncology at [address] [phone] documented as of this encounter Visit Diagnoses Diagnosis Cancer of prostate with intermediate recurrence risk (stage T2b-c or Melba 7 or PSA 10-20) Malignant neoplasm of prostate documented in this encounter Care Teams Convention Worker Relationship Specialty Start Date End Date Bobby Headley MD [address] [place] [address] PCP - General 01/29/14 11/28/17 documented as of this encounter
--- OUTSIDE RECORDS SUMMARY | 2023-10-03 03:16 | XMS_ITS | Encounter Summary ---
[place] [address] Care Team Providers Care Subsurface Augmentee Elint Operator Name Role Phone Bobby Headley MD Primary Care Provider [phone] Encounter Details Date Type Department Care Team (Late st Contact Info) Description 12/31/2014 8:00 AM EST Office Visit Radiation Oncology at [address] [phone] Nitin Stauffer MD [address] [place] [address] DR RADIATION ONCOLOGY [place], [place] [phone] Cancer of prostate with intermediate recurrence risk [...] Uncontrollable bleeding A Radiation Oncology doctor is auction assistant after our normal hours and on weekends. To call for urgent medical issues from radiation treatments that can not wait until normal business hours, please call and have the petroleum blending plant operator page the Radiation Oncologist auction assistant. Nitin Ramirez MD documented in this encounter Progress Notes * Nitin Stauffer MD - 12/31/2014 8:07 AM EST [facility] On Treatment Visit Patient [...] AM EDT Office Visit Hematology/Oncology at [address] [phone] Adrianne Ramon MD [facility] HEMATOLOGY [place] [address] Yael Merlos APRN [facility] HEMATOLOGY [place] [address] 10/03/2023 10:30 AM EDT Infusion Hematology Oncology at [address] [phone] 10/10/2023 2:45 PM EDT Appointment XRay at [address] [place] [address] Micha Givens Jr., MD [facility] DR [place] [address] 10/10/2023 3:00 PM EDT Appointment Non-[place] [address] 10/10/2023 3:30 PM EDT Appointment [place] [address] 10/11/2023 8:30 AM EDT Infusion Hematology Oncology at [address] [phone] documented as of this encounter Visit Diagnoses Diagnosis Cancer of prostate with intermediate recurrence risk (stage T2b-c or Cierra 7 or PSA 10-20) Malignant neoplasm of prostate documented in this encounter Care Teams Subsurface Augmentee Elint Operator Relationship Specialty Start Date End Date Bobby Headley MD [address] [place] [address] PCP - General 01/29/14 11/28/17 documented as of this encounter
--- OUTSIDE RECORDS SUMMARY | 2023-10-03 03:16 | XMS_ITS | Encounter Summary ---
[place] [address] Care Team Providers Care Power Tool Repair Technician Name Role Phone Bobby Headley MD Primary Care Provider [phone] Reason for Visit * Reason Comments On Treatment Visit Encounter Details Date Type Department Care Team (Late st Contact Info) Description 12/03/2014 1:15 PM EDT Office Visit Radiation Oncology at [address] [phone] Nitin Stauffer MD [address] [place] [address] [place] [address] Cancer of prostate with intermediate recurrence risk (stage T2b-c or [place] 7 or PSA 10-20) Social History Tobacco [...] Uncontrollable bleeding A Radiation Oncology doctor is front end engineer after our normal hours and on weekends. To call for urgent medical issues from radiation treatments that can not wait until normal business hours, please call and have the bobbin cleaning machine operator page the Radiation Oncologist front end engineer. Nitin Ramirez MD documented in this encounter Progress Notes * Nitin Stauffer MD - 12/03/2014 1:14 PM EDT [facility] [...] AM EDT Office Visit Hematology/Oncology at [address] [phone] Adrianne Ramon MD [facility] HEMATOLOGY [place] [address] Yael Merlos APRN [facility] HEMATOLOGY [place] [address] 10/03/2023 10:30 AM EDT Infusion Hematology Oncology at [address] [address] 10/10/2023 2:45 PM EDT Appointment XRay at [address] [place] [address] Micha Givens Jr., MD [facility] HEMATOLOGY [place] [address] 10/10/2023 3:00 PM EDT Appointment [place] [address] 10/10/2023 3:30 PM EDT [place]ointment [place] [address] 10/11/2023 8:30 AM EDT Infusion Hematology Oncology at [address] [phone] documented as of this encounter Visit Diagnoses Diagnosis Cancer of prostate with intermediate recurrence risk (stage T2b-c or Templeton 7 or PSA 10-20) Malignant neoplasm of prostate documented in this encounter Care Teams Power Tool Repair Technician Relationship Specialty Start Date End Date Bobby Headley MD [address] [place] [address] PCP - General 01/29/14 11/28/17 documented as of this encounter
--- OUTSIDE RECORDS SUMMARY | 2023-10-03 03:16 | XMS_ITS | Encounter Summary ---
Author Organization [facility] [place] [address] Care Team Providers Care Web Developer Name Role Phone Bobby Headley MD Primary Care Provider [phone] Encounter Details Date Type Department Care Team (Late st Contact Info) Description 01/12/2015 8:15 AM EST Office Visit Radiation Oncology at [address] [phone] Nitin Stauffer MD [address] [place] [address] DR RADIATION ONCOLOGY [place], [place] [phone] Cancer of prostate with intermediate recurrence risk [...] Uncontrollable bleeding A Radiation Oncology doctor is distribution designer after our normal hours and on weekends. To call for urgent medical issues from radiation treatments that can not wait until normal business hours, please call and have the petroleum plant operator page the Radiation Oncologist distribution designer. Nitin Ramirez MD documented in this encounter Progress Notes * Nitin Stauffer MD - 01/12/2015 7:58 AM EST [facility] [...] 10:00 AM EDT Office Visit Hematology/Oncology at [address] [address] Adrianne Ramon MD [facility] [place] [address] Yael Merlos, KARLA [facility] HEMATOLOGY [place] [address] 10/03/2023 10:30 AM EDT Infusion Hematology Oncology at [address] [address] 10/10/2023 2:45 PM EDT Appointment XRay at [address] [place] [address] Micha Givens Jr., MD [facility] HEMATOLOGY [place] [address] 10/10/2023 3:00 PM EDT Appointment [place] [address] 10/10/2023 3:30 PM EDT [place] [address] 10/11/2023 8:30 AM EDT Infusion Hematology Oncology at [address] [address] documented as of this encounter Visit Diagnoses Diagnosis Cancer of prostate with intermediate recurrence risk (stage T2b-c or Cierra 7 or PSA 10-20) Malignant neoplasm of prostate documented in this encounter Care Teams Web Developer Relationship Specialty Start Date End Date Bobby Headley MD [address] [place] [address] PCP - General 01/29/14 11/28/17 documented as of this encounter
--- OUTSIDE RECORDS SUMMARY | 2023-10-03 03:16 | XMS_ITS | Encounter Summary ---
[place] [address] Care Team Providers Care Mother Baby Rn Name Role Phone Bobby Headley MD Primary Care Provider [phone] Encounter Details Date Type Department Care Team (Late st Contact Info) Description 11/26/2014 9:00 AM EDT Office Visit Radiation Oncology at [address] [phone] Nitin Stauffer MD [address] [place] [address] DR RADIATION ONCOLOGY [place], [place] [phone] Cancer of prostate with intermediate recurrence risk [...] Uncontrollable bleeding A Radiation Oncology doctor is admissions recruiter after our normal hours and on weekends. To call for urgent medical issues from radiation treatments that can not wait until normal business hours, please call and have the bottom saw operator page the Radiation Oncologist admissions recruiter. Nitin Ramirez MD documented in this encounter Progress Notes * Nitin Stauffer MD - 11/26/2014 11:16 AM EDT [facility] On Treatment Visit Patient ID: [...] 10:00 AM EDT Office Visit Hematology/Oncology at [address] [phone] Adrianne Ramon MD [facility] HEMATOLOGY [place] [address] Yael Merlos APRN [facility] HEMATOLOGY [place] [address] 10/03/2023 10:30 AM EDT Infusion Hematology Oncology at [address] [phone] 10/10/2023 2:45 PM EDT Appointment XRay at [address] [place] [address] Micha Givens Jr., MD [facility] DR [place] [address] 10/10/2023 3:00 PM EDT Appointment Non-[place]vasive [place] [address] 10/10/2023 3:30 PM EDT [place] [phone] 10/11/2023 8:30 AM EDT Infusion Hematology Oncology at [address] [phone] documented as of this encounter Visit Diagnoses Diagnosis Cancer of prostate with intermediate recurrence risk (stage T2b-c or Cierra 7 or PSA 10-20) Malignant neoplasm of prostate documented in this encounter Care Teams Mother Baby Rn Relationship Specialty Start Date End Date Bobby Headley MD [address] [place] [address] PCP - General 01/29/14 11/28/17 documented as of this encounter
--- OUTSIDE RECORDS SUMMARY | 2023-10-03 03:16 | XMS_ITS | Encounter Summary ---
[place] [address] Care Team Providers Care Cloth Reeler Name Role Phone Bobby Headley MD Primary Care Provider [phone] Encounter Details Date Type Department Care Team (Late st Contact Info) Description 01/07/2015 8:00 AM EST Office Visit Radiation Oncology at [address] [phone] Nitin Stauffer MD [address] [place] [address] DR RADIATION ONCOLOGY [place], [place] [phone] Malignant neoplasm of prostate Social History Tobacco [...] Uncontrollable bleeding A Radiation Oncology doctor is hyperion developer after our normal hours and on weekends. To call for urgent medical issues from radiation treatments that can not wait until normal business hours, please call and have the steam turbine operator page the Radiation Oncologist hyperion developer. Nitin Ramirez MD documented in this encounter Progress Notes * Nitin Stauffer MD - 01/07/2015 8:02 AM EST [facility] On Treatment Visit [...] AM EDT Office Visit Hematology/Oncology at [address] [phone] Adrianne Ramon MD [facility] HEMATOLOGY [place] [address] Yael Merlos APRN [facility] HEMATOLOGY [place] [address] 10/03/2023 10:30 AM EDT Infusion Hematology Oncology at [address] [address] 10/10/2023 2:45 PM EDT Appointment XRay at [address] [place] [address] Micha Givens Jr., MD [facility] HEMATOLOGY [place] [address] 10/10/2023 3:00 PM EDT Appointment Non-[place] [address] 10/10/2023 3:30 PM EDT Appoint[place] [address] 10/11/2023 8:30 AM EDT Infusion Hematology Oncology at [address] [phone] documented as of this encounter Visit Diagnoses Diagnosis Malignant neoplasm of prostate documented in this encounter Care Teams Cloth Reeler Relationship Specialty Start Date End Date Bobby Headley MD [address] [place] [address] PCP - General 01/29/14 11/28/17 documented as of this encounter
--- OUTSIDE RECORDS SUMMARY | 2023-10-03 03:16 | XMS_ITS | Encounter Summary ---
[place] [address] Care Team Providers Care Technology Architect Name Role Phone Bobby Headley MD Primary Care Provider [phone] Encounter Details Date Type Department Care Team (Late st Contact Info) Description 09/29/2014 12:00 PM EDT Office Visit Radiation Oncology at [address] [phone] Nitin Stauffer MD [address] [place] [address] DR RADIATION ONCOLOGY [place], [place] [id number] Cancer of prostate with intermediate recurrence risk [...] slowed by medications such as Viagra. Another intermodal owner operator truck driver but potentially serious side effect is the [...] a prostate MRI which we do at [facility], that allows us to better see [...] [facility] simulation scan here in our [facility] clinic, typically 1-2 weeks after the [...] do not hesitate to call me at [phone] with any other questions or concerns you have. Although our normal business hours are M-F 8AM-5PM, I am on- site here in [facility] Wednesdays through Fridays. On Mondays and Tuesdays, your nurse Christine Fernando will be here and can answer any questionsyou might have, or help you get in touch with me. A Radiation Oncology doctor is also network control supervisor after our normal hours and on weekends for urgent questions or concerns related to radiation treatments that can not wait until normal business hours. To reach the on-call doctor after-hours, just call and have the first coat operator page the Radiation Oncologist network control supervisor. And, as always, if you experience any [...] injury 7. 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 Forty-five percent of that core did appear to be involved. Perineural invasion was not seen. Pathology had been reviewed here at [facility]. 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 Estimated travel time by the patient to [facility] is 10 minutes, one-way. KPS: 100 [...] with either Dr. Nunezor Dr. Stubbs at [facility]. However, he was quite clear that the potential side effects of urinary incontinence or erectile dysfunction are completely unacceptable to him. Given the primary Helvetia 4 disease, I discussed the utility of [...] file at [facility] ([facility]) PAIN ASSESSMENT: [0] out of 10 [...] AM EDT Office Visit Hematology/Oncology at [address] [phone] Adrianne Ramon MD [facility] HEMATOLOGY [place] [address] Yael Merlos APRN [facility] HEMATOLOGY [place] [address] 10/03/2023 10:30 AM EDT Infusion Hematology Oncology at [address] [phone] 10/10/2023 2:45 PM EDT Appointment XRay at [address] [place] [address] Micha Givens Jr., MD [facility] HEMATOLOGY [place] [address] 10/10/2023 3:00 PM EDT Appointment Non[place] [phone] 10/10/2023 3:30 PM EDT Appointment [place] [address] 10/11/2023 8:30 AM EDT Infusion Hematology Oncology at [address] [phone] documented as of this encounter Procedures Procedure Name Priority Date/Time Associated Diagnosis Comments CHEMOTHERAPY SCAN 09/29/2014 12:00 AM EDT documented in this encounter Results * SCAN DOC: CHEMOTHERAPY (09/29/2014 12:00 AM EDT) Scanning Provider MEDIA MGR SCAN EXT O RDR/RSLT documented in this encounter Visit Diagnoses Diagnosis Cancer of prostate with intermediate recurrence risk (stage T2b-c or Helvetia 7 or PSA 10-20) Malignant neoplasm of prostate documented in this encounter Care Teams Technology Architect Relationship Specialty Start Date End Date Bobby Headley MD [address] [place] [address] PCP - General 01/29/14 11/28/17 documented as of this encounter
--- OUTSIDE RECORDS SUMMARY | 2023-10-03 03:16 | XMS_ITS | Encounter Summary ---
[place] [address] Care Team Providers Care China Decorator Name Role Phone Bobby Headley MD Primary Care Provider [phone] Encounter Details Date Type Department Care Team (Late Contact Info) Description 10/21/2014 Telephone Radiation Oncology at [address] [phone] Nitin Stauffer MD [address] [place] [address] RADIATION ONCOLOGY [place], [place] [phone] Social History Tobacco Use Types Packs/Day Years [...] AM EDT Office Visit Hematology/Oncology at [address] [phone] Adrianne Ramon MD [facility] DR HEMATOLOGY [place] [address] Yael Merlos, AUTOMOTIVE SERVICE CONSULTANT [facility] HEMATOLOGY [place] [address] 10/03/2023 10:30 AM EDT Infusion Hematology Oncology at [address] [phone] 10/10/2023 2:45 PM EDT Appointment XRay at [address] [place] [address] Micha Givens Jr., MD [facility] HEMATOLOGY [place] [address] 10/10/2023 3:00 PM EDT Appointment Non-[place]vasive [place] [address] 10/10/2023 3:30 PM EDT Appointment [place] [address] 10/11/2023 8:30 AM EDT Infusion Hematology Oncology at [address] [phone] documented as of this encounter Visit Diagnoses Not on filedocumented in this encounter Care Teams China Decorator Relationship Specialty Start Date End Date Bobby Headley MD [address] [place] [address] PCP - General 01/29/14 11/28/17 documented as of this encounter
--- OUTSIDE RECORDS SUMMARY | 2023-10-03 03:16 | XMS_ITS | Encounter Summary ---
[place] [address] Care Team Providers Care Director Medical Writing Name Role Phone Bobby Headley MD Primary Care Provider [phone] Encounter Details Date Type Department Care Team (Late st Contact Info) Description 10/15/2014 Telephone Radiation Oncology at [address] [phone] Christine Garcia RN Social History [...] Post-Procedure Phone Note Name: Cheo Freire A#: [id number] : 1950 Date/Time of Call: 10/15/2014 6:10 [...] YES NO x Comments/interventions: Section Radiation Oncology [facility] documented in this encounter Plan of Treatment Upcoming Encounters Date Type Department Care Team (Late st Contact Info) Description 10/03/2023 10:00 AM EDT Office Visit Hematology/Oncology at [address] [phone] Adrianne Ramon MD [facility] DR HEMATOLOGY [place] [address] Yael Merlos APRN [facility] DR HEMATOLOGY [place] [address] 10/03/2023 10:30 AM EDT Infusion Hematology Oncology at [address] [phone] 10/10/2023 2:45 PM EDT Appointment XRay at [address] [place] [address] Micha Givens Jr., MD [facility] DR HEMATOLOGY [place] [address] 10/10/2023 3:00 PM EDT Appointment Non-[place] [phone] 10/10/2023 3:30 PM EDT [place] [address] 10/11/2023 8:30 AM EDT Infusion Hematology Oncology at [address] [phone] documented as of this encounter Visit Diagnoses Not on filedocumented in this encounter Care Teams Director Medical Writing Relationship Specialty Start Date End Date Bobby Headley MD [address] [place] [address] PCP - General 01/29/14 11/28/17 documented as of this encounter
--- OUTSIDE RECORDS SUMMARY | 2023-10-03 03:16 | XMS_ITS | Encounter Summary ---
[place] [address] Care Team Providers Care Early Childhood Name Role Phone Bobby Headley MD Primary Care Provider [phone] Encounter Details Date Type Department Care Team (Latest Contact Info) Description 01/04/2015 Unscheduled Encounter Radiation Oncology at [address] [phone] Lidia Reno, RN Malignant neoplasm of prostate [...] AM EDT Office Visit Hematology/Oncology at [address] [phone] Adrianne Ramon MD [facility] DR HEMATOLOGY [place] [address] Yael Merlos APRN [facility] HEMATOLOGY [place] [address] 10/03/2023 10:30 AM EDT Infusion Hematology Oncology at [address] [phone] 10/10/2023 2:45 PM EDT Appointment XRay at [address] [place] [phone] Micha Givens Jr., MD [facility] HEMATOLOGY [place] [address] 10/10/2023 3:00 PM EDT Appointment Non[place] [address] 10/10/2023 3:30 PM EDT Appointment [place] [address] 10/11/2023 8:30 AM EDT Infusion Hematology Oncology at [address] [phone] documented as of this encounter Visit Diagnoses Diagnosis Malignant neoplasm of prostate documented in this encounter Care Teams Early Childhood Relationship Specialty Start Date End Date Bobby Headley MD [address] [place] [address] PCP - General 01/29/14 11/28/17 documented as of this encounter
[2023-10-03 09:18] LABS: Abs Immature Grans 0.19 10^3/uL (0.0-0.06); Absolute Basophil Count 0.02 10^3/uL (0.0-0.2); Absolute Lymphocyte Count 0.62 10^3/uL (1.2-3.4); Absolute Monocyte Count 1.42 10^3/uL (0.1-0.8); Basophils % 0.1 %; Eosinophils % 1.4 %; HCT 36.9 % (40.0-50.0); HGB 12.2 g/dL (13.5-17.5); Immature Grans % 1.2 %; Lymphocytes % 3.8 %; MCHC 33.1 % (32.0-36.0); MCV 91 fL (80-95); MPV 10.9 fL (8.0-11.0); Monocytes % 8.7 %; Neutrophils % 84.8 %; Platelet Count 167 10^3/uL (130-400); RBC 4.06 10^6/uL (4.36-5.78); RDW 14.1 % (11.8-14.1); RDW-SD 47.3 fL; WBC 16.27 10^3/uL (4.4-10.8)
[2023-10-03 09:19] LABS: Absolute Eosinophil Count 0.23 10^3/uL (0.0-0.7)
[2023-10-03 09:33] LABS: ALT 45 U/L (16-63); AST 24 U/L (15-37); Alkaline Phosphatase 112 U/L (46-116); Anion Gap 10.7 mmol/L (3-11); BUN 26 mg/dL (7-18); Bilirubin, Total 0.61 mg/dL (0.2-1.0); CO2 24.3 mmol/L (21.0-32.0); CREATININE 1.5 mg/dL (0.70-1.30); Calcium 8.8 mg/dL (8.5-10.1); Chloride 103 mmol/L (98-107); Estimated GFR 48.25 (mL/min/1.73m2); Glucose 184 mg/dL (74-106); LDH 226 U/L (85-227); Potassium 3.3 mmol/L (3.5-5.1); Sodium 138 mmol/L (136-145); Total Protein 5.6 g/dL (6.4-8.2); Uric Acid 3.8 mg/dL (3.5-7.2)
[2023-10-03 09:45] LABS: Ferritin 397 ng/mL (26-388)
[2023-10-04 09:41] LABS: IgA 92 mg/dL (85-499); IgG 475 mg/dL (610-1616); IgM 118 mg/dL (35-242)
== END 2023-10-03 03:06 | disposition home or self-care (01) ==
LOC: LBO 03:05
PROVIDERS: Nurse Practitioner Adult Health; PCP Family Medicine; Visit Provider Internal Medicine Hematology & Oncology
DX: C83.38 Diffuse large B-cell lymphoma, lymph nodes of multiple sites (principal)
CPT/HCPCS: 36415; 80053; 82784; 82728; 83615; 84550; 85025

== ENCOUNTER 2023-10-11 03:35 | Outpatient (CLI) | payer MEDICARE, SELFPAY ==
--- OUTSIDE RECORDS SUMMARY | 2023-10-11 03:37 | XMS_ITS | Encounter Summary ---
Author Organization [facility] Address [address] [place] [address] Care Team Providers Care Veneer Gluer Name Role Phone Bobby Headley MD Primary Care Provider [phone] Encounter Details Date Type Department Care Team (Late st Contact Info) Description 10/06/2022 Lab Requisition [facility] Pathology & Laboratory Medicine - [facility] [address] [place] [address] Lg Ramírez MD [address] [place] [address] Generalized enlarged lymph nodes Social History [...] Diffuse Large B-Cell Lymphoma. 10/17/2022 13:09 EDT [facility] Addendum electronically signed by Dedrick Quintanilla MD on 10/17/2022 at 1309 Note to Patient The following pathology results have been interpreted by your pathologist and may be available to you before your health provider has had the opportunity to review them. Please allow time for your provider to receive these results and explore management options, if applicable. 10/17/2022 13:09 [facility] Final Diagnosis A. Tongue base, left: -Large B-cell lymphoma, incompletely classified. See comment. 10/17/2022 13:09 [facility] Diagnosis Comment The findings are those of a large B-cell lymphoma that exhibits a non-germinal center immunophenotype and expresses Myc and BCL-2 protein (Double Expressor.) Flow cytometry ([id number]) supports this interpretation. The differential classification of this lesion is diffuse large B-cell lymphoma versus high grade B-cell lymphoma with MYC and BCL-2 rearrangement. Material has been sent to [facility] to assess the status of these genes by FISH and an addendum report with a definitive classification will be issued upon receipt of the result. 10/17/2022 13:09 [facility] Attestation By the signature below, the attending physician certifies that they have 1) personally conducted a gross and/or microscopic examination of the described specimen(s), and/or personally interpreted the results of laboratory testing of the described specimen(s), and 2) personally rendered or confirmed the above diagnosis. 10/17/2022 13:09 [facility] at [address]10 Microscopic Description There is a diffuse proliferation of large B-cells below the squamous epithelium. Nuclei are large, oval, and and often contain multiple small nucleoli. Scattered small lymphocytes are present. CD3 (SP7, [employer]) Background T-cells CD20 (L26, [place]) diffusely positive in Neoplastic B-cells PAX-5 (1EW, [employer]ica) diffusely positive in Neoplastic B-cells CD10 (SP67, [place]) Negative BCL-6 (G/191E/A8, [place]) Positive MUM-1 (MUM1p, [employer]) Positive Myc (Y69, [employer]) Positive BCL-2 Oncoprotein (124, [place]) Positive Ki67 (MIB-1) (K2, Leica) Greater than 95% of cells in cycle Cyclin D1(SP4-R, [place]) Negative SAPPHIRE JOSE (OAR1951-D, Leica) Negative. 10/17/2022 13:09 EDT [facility] Clinical History Massive LAD, history of prostate cancer; clinical diagnosis code: R59.1 10/17/2022 13:09 EDT [facility] Gross Description A. Received in formalin labelled with proper patient identification (initials D, D) and left tongue base are multiple pale plasencia irregular soft tissue fragments which measure 0.8 x 0.6 x 0.5 cm in aggregate and are submitted in toto in A1. TAHMINA NELSON(ASCP) 10/06/2022 15:22 10/17/2022 13:09 EDT [facility] Performing Lab [facility] 13:09 EDT [facility] Scanned Images 10/17/2022 13:09 EDT [facility] Tissue TONGUE STRUCTURE / Unknown 10/05/2022 8:00 EDT 10/06/2022 8:28 EDT Lg Ramírez MD PATHOLOGY ORDERABLES [facility] [address] [place] [address] documented in this encounter Visit Diagnoses Diagnosis Generalized enlarged lymph nodes Enlargement of lymph nodes documented in this encounter Care Teams Veneer Gluer Relationship Specialty Start Date End Date Bobby Headley MD [address] [place] [address] PCP - General 01/18/12 documented as of this encounter
--- OUTSIDE RECORDS SUMMARY | 2023-10-11 03:37 | XMS_ITS | Encounter Summary ---
Author Organization [facility] Address [address] [place] [address] Care Team Providers Care Railroad Car Checker Name Role Phone Bobby Headley MD Primary Care Provider [phone] Encounter Details Date Type Department Care Team (Late st Contact Info) Description 10/03/[address] [facility] Pathology & Laboratory Medicine - [address] [phone] Outr Resulting Lab, Provider Social History Tobacco [...] Priority Date/Time Associated Diagnosis Comments IMMUNOGLOBULINS Routine 10/03/2023 9:10 EDT documented in this encounter Results * (ABNORMAL) IMMUNOGLOBULINS (10/03/2023 9:10 EDT) IgG 475(L) 610 - 1,616 mg/dL 10/04/2023 9:36 EDT [facility] IgA 92 85 - 499 mg/dL 10/04/2023 9:36 EDT [facility] IgM 118 35 - 242 mg/dL 10/04/2023 9:36 EDT [facility] Blood VENOUS BLOOD / Unknown 10/03/2023 9:10 EDT 10/03/2023 17:28 EDT Provider Outr Resulting Lab CHEMISTRY & BLOOD GAS ORDERABLES [facility] [address] [place] [address] documented in this encounter Visit Diagnoses Not on filedocumented in this encounter Care Teams Railroad Car Checker Relationship Specialty Start Date End Date Bobby Headley MD [address] [phone] PCP - General 01/18/12 documented as of this encounter
--- OUTSIDE RECORDS SUMMARY | 2023-10-11 03:37 | XMS_ITS | Encounter Summary ---
Author Organization [facility] Address [address] [place] [address] Care Team Providers Care Office Services Assistant Name Role Phone Bobby Headley MD Primary Care Provider [phone] Encounter Details Date Type Department Care Team (Late st Contact Info) Description 10/11/2022 Lab Requisition [facility] Pathology & Laboratory Medicine - [facility] [address] [place], [place] [address] Outr Resulting Lab, Provider Social History Tobacco [...] 610 - 1,616 mg/dL 10/12/2022 9:35 EDT [facility] IgA 182 85 - 499 mg/dL 10/12/2022 9:35 EDT [facility] IgM 233 35 - 242 mg/dL 10/12/2022 9:35 EDT [facility] Blood VENOUS BLOOD / Unknown 10/11/2022 10:55 EDT 10/11/2022 17:38 EDT Provider Outr Resulting Lab CHEMISTRY & BLOOD GAS ORDERABLES [facility] [address] [place] [address] documented in this encounter Visit Diagnoses Not on filedocumented in this encounter Care Teams Office Services Assistant Relationship Specialty Start Date End Date Bobby Headley MD [address] [place] [address] PCP - General 01/18/12 documented as of this encounter
--- OUTSIDE RECORDS SUMMARY | 2023-10-11 03:37 | XMS_ITS | Encounter Summary ---
Author Organization [facility] Address [address] [place] [address] Care Team Providers Care Ice Hockey Coach Name Role Phone Unavailable Primary Care Provider Unavailabl e Encounter Details Date Type Department Care Team (Late st Contact Info) Description 08/24/1999 Results Only [facility] [place] conversion [address] [place] [address] Micha Pineda MD [address] [place] [phone] Social History Tobacco Use Types Packs/Day Years [...] ? CHEO MORFIN ? Accession #: ? [id number] ? : ? 1950 (Age: 49) ??M ? Collect Date: ? 08/24/1999 ? Location: ? [facility] ? Receive Date: ? 08/24/1999 ? Provider: RHYS PINEDA MD Copy to: MARY HEWITT MD ? Final Pathologic Diagnosis: ? Colon, left transverse (80 cm), biopsies: - Hyperplastic polyp. Document reviewed and electronically signed by: Tresa Waite [facility] Report ??Date: 08/26/1999 16:44 By [...] MD PATHOLOGY ORDERABLES [facility] [address] [place] [address] documented in this encounter Visit Diagnoses Not on filedocumented in this encounter
--- OUTSIDE RECORDS SUMMARY | 2023-10-11 03:37 | XMS_ITS | Encounter Summary ---
Author Organization [facility] Address [address] [place] [address] Care Team Providers Care Auto Leasing Manager Name Role Phone Bobby Headley MD Primary Care Provider Encounter Details Date Type Department Care Team (Late st Contact Info) Description 03/05/2020 Lab Requisition [facility] Pathology & Laboratory Medicine - [address] [phone] Outr Resulting Lab, Provider Social History Tobacco [...] 0.0 - 6.5 ng/mL 03/06/2020 0:00 EST [facility] Blood VENOUS BLOOD / Unknown 03/05/2020 7:50 EST 03/05/2020 17:28 EST Narrative [facility] - 03/06/2020 0:00 EST NOTE: Serum PSA concentration should not be interpreted as absolute evidence for the presence or absence of malignant disease. Assayed on Siemens ADVIA V2contactaur XPT using chemiluminescent technology.??Values obtained by using different assay methods cannot be used interchangeably. Provider Outr Resulting Lab CHEMISTRY & BLOOD GAS ORDERABLES [facility] [address] [place] [address] documented in this encounter Visit Diagnoses Not on filedocumented in this encounter Care Teams Auto Leasing Manager Relationship Specialty Start Date End Date Bobby Headley MD [address] [place] [phone] PCP - General 01/18/12 documented as of this encounter
--- OUTSIDE RECORDS SUMMARY | 2023-10-11 03:37 | XMS_ITS | Encounter Summary ---
Author Organization [facility] Address [address] [place] [address] Care Team Providers Care National Facilities Manager Name Role Phone Bobby Headley MD Primary Care Provider [phone] Encounter Details Date Type Department Care Team (Late st Contact Info) Description 03/10/2019 Lab Requisition [facility] Pathology & Laboratory Medicine - [facility] [address] [place] [address] Unknown, Provider, Social History Tobacco Use Types [...] 0.0 - 6.5 ng/mL 03/11/2019 10:56 EST [facility] Blood VENOUS BLOOD / Unknown 03/10/2019 9:05 EST 03/10/2019 15:40 EST Narrative [facility] - 03/11/2019 10:56 EST NOTE: Serum PSA concentration should not be interpreted as absolute evidence for the presence or absence of malignant disease. Assayed on Siemens ADVIA Graduatelandaur XPT using chemiluminescent technology.??Values obtained by using different assay methods cannot be used interchangeably. Provider Unknown CHEMISTRY & BLOOD GA S ORDERABLES [facility] [address] [place] [address] documented in this encounter Visit Diagnoses Not on filedocumented in this encounter Care Teams National Facilities Manager Relationship Specialty Start Date End Date Bobby Headley MD [address] [place] [address] PCP - General 01/18/12 documented as of this encounter
--- OUTSIDE RECORDS SUMMARY | 2023-10-11 03:37 | XMS_ITS | Encounter Summary ---
Author Organization [facility] Address [address] [place] [address] Care Team Providers Care Celery Stripper Name Role Phone Bobby Headley MD Primary Care Provider Encounter Details Date Type Department Care Team (Latest Contact Info) Description 09/01/2014 13:19 EDT - 09/01/2014 23:59 EDT Hospital Encounter [address] [address] Unknown, Provider, Discharge Disposition: Home or Self Care Social History Tobacco Use Types Packs/Day Years Used Date Smoking Tobacco: Never Assessed Sex and Gender Information Value Date Recorded Sex Assigned at Not on file Gender Identity Not on file Sexual Orientation Not on file documented as of this encounter Discharge Disposition Disposition Code Departure Means Destination Home or Self Fdc documented in this encounter Plan of Treatment Not on file documented as of this encounter Visit Diagnoses Not on filedocumented in this encounter Care Teams Celery Stripper Relationship Specialty Start Date End Date Bobby Headley MD [address] [place] [address] PCP - General 01/18/12 documented as of this encounter
--- OUTSIDE RECORDS SUMMARY | 2023-10-11 03:37 | XMS_ITS | Encounter Summary ---
Author Organization [facility] Address [address] [place] [address] Care Team Providers Care Personal Investment Adviser Name Role Phone Bobby Headley MD Primary Care Provider [phone] Encounter Details Date Type Department Care Team (Late st Contact Info) Description 10/11/2022 Lab Requisition [facility] Pathology & Laboratory Medicine - [address] [address] Dedrick Quintanilla MD [address] [facility], Level 2 [place] [address] Encounter for other general examination [...] Lloyd SEE NOTE 10/16/2022 15:45 EDT [facility] Comment: Test ?Result ?Flag [...] Slides, Formalin ??Source ?Tongue ?Tissue ID ? [id number] ?Method ?SEE NOTE ?Locus and probes ? [Strategy;#Nuclei;Class] ?8CEN(D8Z2),8q24.1(MYC),14q32(IGH) ?[DFISH;100;AM] ?8q24.1(5'MYC,3'MYC) ?[BAP;100;AM] ?Probe strategies include: ?DFISH=dual color, double fusion; ?BAP=break-apart probe. ?Scoring Method: Manual ?Probe vendors include: ?AM = [employer] ([place], [place]) ??Additional Information ?Not Reported ?Disclaimer ?SEE NOTE ?Applicable to Analyte Specific Reagent (ASR) and Laboratory ?Developed Tests (LDT). This test was developed and its ?performance characteristics determined by [facility] in a ?manner consistent with CLIA requirements. [...] ? Masha Padilla M.D. ?Test Performed by: ?[facility] ?[address] [place] [address] ?Bake Room Worker: Jose David Lowry M.D. Ph.D.; CLIA# [id number] Tissue TISSUE SPECIMEN / Unknown 10/05/2022 8:00 EDT 10/11/2022 7:41 EDT Dedrick Quintanilla MD CHEMISTRY & BLOOD GA S ORDERABLES Performing Organization Address City/State/[facility] Co de Phone Number [facility] [address] [place] [address] documented in this encounter Visit Diagnoses Diagnosis Encounter for other general examination documented in this encounter Care Teams Personal Investment Adviser Relationship Specialty Start Date End Date Bobby Headley MD [address] [place] [phone] PCP - General 01/18/12 documented as of this encounter
--- OUTSIDE RECORDS SUMMARY | 2023-10-11 03:37 | XMS_ITS | Encounter Summary ---
Author Organization [facility] Address [address] [place] [address] Care Team Providers Care Sign Painter Helper Name Role Phone Bobby Headley MD Primary Care Provider [phone] Encounter Details Date Type Department Care Team (Late st Contact Info) Description 09/19/2023 Lab Requisition [facility] Pathology & Laboratory Medicine - [address] [id number] Outr Resulting Lab, Provider Social History Tobacco [...] 1,616 mg/dL 09/20/2023 9:59 EDT [facility] IgA 100 85 - 499 mg/dL 09/20/2023 9:59 EDT [facility] IgM 123 35 - 242 mg/dL 09/20/2023 9:59 EDT [facility] Blood VENOUS BLOOD / Unknown 09/19/2023 7:16 EDT 09/19/2023 16:41 EDT Provider Outr Resulting Lab CHEMISTRY & BLOOD GAS ORDERABLES [facility] [address] [place] [address] documented in this encounter Visit Diagnoses Not on filedocumented in this encounter Care Teams Sign Painter Helper Relationship Specialty Start Date End Date Bobby Headley MD [address] [place] [address] [phone] PCP - General 01/18/12 documented as of this encounter
--- OUTSIDE RECORDS SUMMARY | 2023-10-11 03:37 | XMS_ITS | Encounter Summary ---
Author Organization [facility] Address [address] [place] [address] Care Team Providers Care Cooperative Education Coordinator Name Role Phone Bobby Headley MD Primary Care Provider [phone] Encounter Details Date Type Department Care Team (Late st Contact Info) Description 11/16/2022 Lab Requisition [facility] Pathology & Laboratory Medicine - [facility] [address] [place], [place] [address] Outr Resulting Lab, Provider Social History Tobacco [...] Salmonella PCR Negative Negative 11/16/2022 23:10 EDT [facility] Shigella/Enteroin vasive E. coli Negative Negative 11/16/2022 23:10 EDT [facility] HN LAB CAMPYLOBACTER PCR Negative Negative 11/16/2022 23:10 EDT [facility] Shiga Toxin PCR Negative Negative 23:10 EDT [facility] Feces SPECIMEN FROM RECTUM / Unknown 11/16/2022 0:35 EDT 11/16/2022 18:28 EDT Provider Outr Resulting Lab MICROBIOLOGY - GENERAL ORDERABLES [facility] [address] [place] [address] documented in this encounter Visit Diagnoses Not on filedocumented in this encounter Care Teams Cooperative Education Coordinator Relationship Specialty Start Date End Date Bobby Headley MD [address] [place] [phone] PCP - General 01/18/12 documented as of this encounter
--- OUTSIDE RECORDS SUMMARY | 2023-10-11 03:37 | XMS_ITS | Encounter Summary ---
Author Organization [facility] Address [address] [place] [address] Care Team Providers Care Nanotechnology Technician Name Role Phone Unavailable Primary Care Provider Unavailabl e Encounter Details Date Type Department Care Team (Late st Contact Info) Description 12/19/2006 Results Only [facility] [address] [place] [address] Micha Pineda MD [address] [place] [phone] Social History Tobacco Use Types Packs/Day Years [...] ? CHEO MORFIN ? Accession #: ? [id number] ? : ? 1950 (Age: 56) ??M [...] specimen is entirely submitted as (C). ??(Dr. Echavarria)/[facility] End of Report [facility] 12/19/2006 12/19/2006 15: 40 EDT Micha Pineda MD PATHOLOGY ORDERABLES Performing Organization Address City/State/[facility] Co de Phone Number [facility] [address] [place] [address] documented in this encounter Visit Diagnoses Not on filedocumented in this encounter
--- OUTSIDE RECORDS SUMMARY | 2023-10-11 03:37 | XMS_ITS | Referral Summary ---
Author Organization [facility] Address [address] [place] [address] Care Team Providers Care Order Clerk Name Role Phone Bobby Headley MD Primary Care Provider [phone] Encounters Date Type Department Care Team Description 10/03/2023 Lab Requisition [facility] Pathology & Laboratory [address] [address] Outr Resulting Lab, Provider 09/26/2023 Lab Requisition [facility] Pathology & Laboratory [address] [address] Outr Resulting Lab, Provider 09/19/2023 Lab Requisition [facility] Pathology Laboratory [address] [address] Outr Resulting Lab, Provider from Last 3 Months Social History Tobacco Use Types Packs/Day Years Used Date Smoking Tobacco: Never Assessed Sex and Gender Information Value Date Recorded Sex Assigned at Not on file Gender Identity Not on file Sexual Orientation Not on file Plan of Treatment Not on file Procedures Procedure Name Priority Date/Time Associated Diagnosis Comments IMMUNOGLOBULINS Routine 10/03/2023 9:10 EDT IMMUNOGLOBULINS Routine 09/26/2023 7:47 EDT IMMUNOGLOBULINS Routine 09/19/2023 7:16 EDT from Last 3 Months Results * (ABNORMAL) IMMUNOGLOBULINS (10/03/2023 9:10 EDT) Only the most recent of3 resultswithin the time period is included. IgG 475(L) 610 - 1,616 mg/dL 10/04/2023 9:36 EDT [facility] IgA 92 85 - 499 mg/dL 10/04/2023 9:36 EDT [facility] IgM 118 35 - 242 mg/dL 10/04/2023 9:36 EDT [facility] Blood VENOUS BLOOD / Unknown 10/03/2023 9:10 EDT 10/03/2023 17:28 EDT Provider Outr Resulting Lab CHEMISTRY & BLOOD GAS ORDERABLES [facility] [address] [place] [address] from Last 3 Months Care Teams Order Clerk Relationship Specialty Start Date End Date Bobby Headley MD [address] [place] [address] [phone] PCP - General 01/18/12
--- OUTSIDE RECORDS SUMMARY | 2023-10-11 03:37 | XMS_ITS | Encounter Summary ---
Author Organization [facility] Address [address] [place] [address] Care Team Providers Care Collections Associate Name Role Phone Bobby Headley MD Primary Care Provider [phone] Encounter Details Date Type Department Care Team (Late st Contact Info) Description 09/26/2023 Lab Requisition [facility] Pathology & Laboratory Medicine - [address] [address] Outr Resulting Lab, Provider Social History Tobacco [...] 610 - 1,616 mg/dL 09/27/2023 10:20 EDT [facility] IgA 108 85 - 499 mg/dL 09/27/2023 10:20 EDT [facility] IgM 129 35 - 242 mg/dL 09/27/2023 10:20 EDT [facility] Blood VENOUS BLOOD / Unknown 09/26/2023 7:47 EDT 09/26/2023 17:12 EDT Provider Outr Resulting Lab CHEMISTRY & BLOOD GAS ORDERABLES [facility] [address] [place] [address] documented in this encounter Visit Diagnoses Not on filedocumented in this encounter Care Teams Collections Associate Relationship Specialty Start Date End Date Bobby Headley MD [address] [place] [phone] PCP - General 01/18/12 documented as of this encounter
--- OUTSIDE RECORDS SUMMARY | 2023-10-11 03:37 | XMS_ITS | Clinical Summary ---
Author Organization [facility] Address [address] [place] [address] Care Team Providers Care Junior Programmer Analyst Name Role Phone Bobby Headley MD Primary Care Provider [phone] Encounters Date Type Department Care Team Description 10/03/2023 Lab Requisition [facility] Pathology & Laboratory [address] [address] Outr Resulting Lab, Provider 09/26/2023 Lab Requisition [facility] Pathology & Laboratory [address] [address] Outr Resulting Lab, Provider 09/19/2023 Lab Requisition [facility] Pathology & Laboratory [address] [address] Outr Resulting Lab, Provider from Last 3 [...] 610 - 1,616 mg/dL 10/04/2023 9:36 EDT [facility] IgA 92 85 - 499 mg/dL 10/04/2023 9:36 EDT [facility] IgM 118 35 - 242 mg/dL 10/04/2023 9:36 EDT [facility] Blood VENOUS BLOOD / Unknown 10/03/2023 9:10 EDT 10/03/2023 17:28 EDT Provider Outr Resulting Lab CHEMISTRY & BLOOD GAS ORDERABLES [facility] [address] [place] [address] from Last 3 Months Care Teams Junior Programmer Analyst Relationship Specialty Start Date End Date Bobby Headley MD [address] [place] [address] [phone] PCP - General 01/18/12
--- OUTSIDE RECORDS SUMMARY | 2023-10-11 03:37 | XMS_ITS | Encounter Summary ---
Author Organization [facility] Address [address] [place] [address] Care Team Providers Care Learning And Development Analyst Name Role Phone Bobby Headley MD Primary Care Provider [phone] Encounter Details Date Type Department Care Team (Late st Contact Info) Description 10/06/2022 Lab Requisition [facility] Pathology & Laboratory Medicine - [address] [phone] Outr Resulting Lab, Provider Social History Tobacco [...] filedocumented in this encounter Care Teams Learning And Development Analyst Relationship Specialty Start Date End Date Bobby Headley MD [address] [place] [phone] PCP - General 01/18/12 documented as of this encounter
--- OUTSIDE RECORDS SUMMARY | 2023-10-11 03:37 | XMS_ITS | Encounter Summary ---
Author Organization [facility] Address [address] [place] [address] Care Team Providers Care Accountant Supervisor Name Role Phone Bobby Headley MD Primary Care Provider [phone] Encounter Details Date Type Department Care Team (Late st Contact Info) Description 10/26/2022 Lab Requisition [facility] Pathology & Laboratory Medicine - [address] [address] Outr Resulting Lab, Provider Social History Tobacco [...] Antigen Detection Negative Negative 10/26/2022 23:03 EDT [facility] Urine URINE / Unknown 10/25/2022 6 :05 EDT 10/26/2022 22:47 EDT Provider Outr Resulting Lab MICROBIOLOGY - GENERAL ORDERABLES [facility] [address] [place] [address] documented in this encounter Visit Diagnoses Not on filedocumented in this encounter Care Teams Accountant Supervisor Relationship Specialty Start Date End Date Bobby Headley MD [address] [place] [phone] PCP - General 01/18/12 documented as of this encounter
--- OUTSIDE RECORDS SUMMARY | 2023-10-11 03:37 | XMS_ITS | Encounter Summary ---
Author Organization [facility] Address [address] [place] [address] Care Team Providers Care Training Administrator Name Role Phone Bobby Headley MD Primary Care Provider [phone] Encounter Details Date Type Department Care Team (Late st Contact Info) Description 03/11/2021 Lab Requisition [facility] Pathology & Laboratory Medicine - [address] [phone] Outr Resulting Lab, Provider Social History Tobacco [...] 0.0 - 6.5 ng/mL 03/11/2021 21:52 EST [facility] Blood VENOUS BLOOD / Unknown 03/11/2021 12:38 EST 03/11/2021 21:02 EST Narrative [facility] - 03/11/2021 21:52 EST NOTE: Serum PSA concentration should not be interpreted as absolute evidence for the presence or absence of malignant disease. Assayed on Siemens [employer] XPT using chemiluminescent technology.??Values obtained by using different assay methods cannot be used interchangeably. Provider Outr Resulting Lab CHEMISTRY & BLOOD GAS ORDERABLES [facility] [address] [place] [address] documented in this encounter Visit Diagnoses Not on filedocumented in this encounter Care Teams Training Administrator Relationship Specialty Start Date End Date Bobby Headley MD [address] [place] [address] [phone] PCP - General 01/18/12 documented as of this encounter
--- OUTSIDE RECORDS SUMMARY | 2023-10-11 03:37 | XMS_ITS | Encounter Summary ---
Author Organization [facility] Address [address] [place] [address] Care Team Providers Care Wood Science Professor Name Role Phone Bobby Headley MD Primary Care Provider [phone] Encounter Details Date Type Department Care Team (Late st Contact Info) Description 03/22/2022 Lab Requisition [facility] Pathology & Laboratory Medicine - [facility] [address] [place], [place] [phone] Outr Resulting Lab, Provider Social History Tobacco [...] PSA <0.1 <=6.5 ng/mL 03/22/2022 23:03 EST [facility] Blood VENOUS BLOOD / Unknown 03/22/2022 9:35 EST 03/22/2022 21:50 EST Narrative [facility] - 03/22/2022 23:03 EST NOTE: Serum PSA concentration should not be interpreted as absolute evidence for the presence or absence of malignant disease. Assayed on Siem[employer] XPT using chemiluminescent technology.??Values obtained by using different assay methods cannot be used interchangeably. Provider Outr Resulting Lab CHEMISTRY & BLOOD GAS ORDERABLES [facility] [address] [place] [address] documented in this encounter Visit Diagnoses Not on filedocumented in this encounter Care Teams Wood Science Professor Relationship Specialty Start Date End Date Bobby Headley MD [address] [place] [phone] PCP - General 01/18/12 documented as of this encounter
--- OUTSIDE RECORDS SUMMARY | 2023-10-11 03:37 | XMS_ITS | Encounter Summary ---
Author Organization [facility] Address [address] [place] [address] Care Team Providers Care Lockstitch Sleeve Setter Name Role Phone Bobby Headley MD Primary Care Provider [phone] Encounter Details Date Type Department Care Team (Late st Contact Info) Description 10/06/2022 Lab Requisition [facility] Pathology & Laboratory Medicine - [facility] [address] [place] [address] Lg Ramírez MD [address] [place] [address] Generalized enlarged lymph nodes Social History [...] Name Priority Date/Time Associated Diagnosis Comments NON TITLE CLOSER/FNA CYTOLOGY Today 10/05/2022 8:00 EDT Generalized enlarged lymph nodes documented in this encounter Results * NON TITLE CLOSER/FNA CYTOLOGY (10/05/2022 8:00 EDT) Note to Patient The following pathology results have been interpreted by your pathologist and may be available to you before your health provider has had the opportunity to review them. Please allow time for your provider to receive these results and explore management options, if applicable. 10/09/2022 11:35 EDT [facility] Final Diagnosis A. LYMPH NODE, NECK, LATERALITY NOT SPECIFIED, ULTRASOUND-GUIDED FINE-NEEDLE ASPIRATION: - Mixed lymphoid population present, cannot exclude lymphoproliferative disorder. See comment. - Negative for metastatic carcinoma. 10/09/2022 11:35 [facility] Diagnosis Comment The specimen consists of a single thin prep slide with a mixed population lymphocytes. A lymphoproliferative disorder cannot be excluded based on this specimen alone. Correlation with the concurrent flow cytometry report ([id number]) and surgical biopsy specimen ([id number]) is essential. 10/09/2022 11:35 [facility] Attestation By the signature below, the attending physician certifies that they have personally conducted a gross and/or microscopic examination of the described specimens and rendered or confirmed the above diagnosis. 10/09/2022 11:35 [facility] at 1135 Clinical History Massive LAD; prostate cancer; R59.1 10/09/2022 11:35 [facility] Gross Description A. One vial of CytoLyt was received and processed by selective cellular enhancement technique. 10/09/2022 11:35 [facility] Performing Lab [facility] 10/09/2022 11:35 [facility] Scanned Images 10/09/2022 11:35 [facility] Fine Needle Aspirate ENTIRE LYMPH NODE / Unknown 10/05/2022 8:00 EDT 10/06/2022 6:21 EDT Lg Ramírez MD PATHOLOGY ORDERABLES [facility] [address] [place] [address] documented in this encounter Visit Diagnoses Diagnosis Generalized enlarged lymph nodes Enlargement of lymph nodes documented in this encounter Care Teams Lockstitch Sleeve Setter Relationship Specialty Start Date End Date Bobby Headley MD [address] [place] [phone] PCP - General 01/18/12 documented as of this encounter
--- OUTSIDE RECORDS SUMMARY | 2023-10-11 03:37 | XMS_ITS | Encounter Summary ---
Author Organization [facility] Address [address] [place] [address] Care Team Providers Care Rivet Maker Name Role Phone Bobby Headley MD Primary Care Provider [phone] Encounter Details Date Type Department Care Team (Late st Contact Info) Description 06/13/2023 Lab Requisition [facility] Pathology & Laboratory Medicine - [facility] [address] [place], [place] [address] Outr Resulting Lab, Provider Social History Tobacco [...] - 1,616 mg/dL 06/14/2023 11:[address] [facility] IgA 119 85 - 499 mg/dL 06/14/2023 11:[address] [facility] IgM 124 35 - 242 mg/dL 06/14/2023 11:[address] [facility] Blood VENOUS BLOOD / Unknown 06/13/2023 10:17 EDT 06/13/2023 17:36 EDT Provider Outr Resulting Lab CHEMISTRY & BLOOD GAS ORDERABLES [facility] [address] [place] [address] documented in this encounter Visit Diagnoses Not on filedocumented in this encounter Care Teams Rivet Maker Relationship Specialty Start Date End Date Bobby Headley MD [address] [phone] PCP - General 01/18/12 documented as of this encounter
--- OUTSIDE RECORDS SUMMARY | 2023-10-11 03:37 | XMS_ITS | Encounter Summary ---
Author Organization [facility] Address [address] [place] [address] Care Team Providers Care Partner Name Role Phone Unavailable Primary Care Provider Unavailabl e Encounter Details Date Type Department Care Team (Late st Contact Info) Description 01/17/2012 Results Only [facility] Services - [facility] [address] [place], [place] [id number] Andreas Temple MD [address] [place] [address] Social History Tobacco Use Types [...] ? CHEO MORFIN ? Accession #: ? [id number] ? : ? 1950 (Age: 61) ??M [...] specimens (A) and (B) were reviewed. ??(Dr. Lagos)/[facility] Document reviewed and electronically signed by: DELROY [...] [facility] 01/17/2012 01/17/2012 20: 13 EST Andresa Temple MD PATHOLOGY ORDERABLES Performing Organization Address City/State/[facility] Co de Phone Number [facility] [address] [place] [address] documented in this encounter Visit Diagnoses Not on filedocumented in this encounter
--- OUTSIDE RECORDS SUMMARY | 2023-10-11 03:37 | XMS_ITS | Encounter Summary ---
Author Organization [facility] Address [address] [place] [address] Care Team Providers Care Rn Birthing Name Role Phone Bobby Headley MD Primary Care Provider [phone] Encounter Details Date Type Department Care Team (Late st Contact Info) Description 09/01/2014 Results Only [facility] [phone] Tk Vergara MD [address] [place] [phone] Social History Tobacco Use Types Packs/Day Years [...] ? CHEO MORFIN ? Accession #: ? [id number] ? : ? 1950 (Age: 64) ??M [...] = 7 (60% 4) ? - Primary Ceylon pattern: ? Grade 4 ? - Secondary Ceylon pattern: ? Grade 3 ? - Total [...] William 09/03/2014 9:00 AM End of Report [facility] 09/01/2014 18:1 6 EDT 09/02/2014 18:16 EDT Tk Vergara MD PATHOLOGY ORDERABLES [facility] [address] [place] [address] documented in this encounter Visit Diagnoses Not on filedocumented in this encounter Care Teams Rn Birthing Relationship Specialty Start Date End Date Bobby Headley MD [address] [place] [address] [phone] PCP - General 01/18/12 documented as of this encounter
--- OUTSIDE RECORDS SUMMARY | 2023-10-11 03:37 | XMS_ITS | Encounter Summary ---
Author Organization [facility] Address [address] [place] [address] Care Team Providers Care Pump House Technician Name Role Phone Bobby Headley MD Primary Care Provider [phone] Encounter Details Date Type Department Care Team (Late st Contact Info) Description 10/06/2022 Lab Requisition [facility] Pathology & Laboratory Medicine - [facility] [address] [place] [address] Lg Ramírez MD [address] [place] [address] Generalized enlarged lymph nodes Social History [...] B-cell lymphoproliferative disorder. See comment. 12:09 EDT [facility] Comment The results of flow cytometry are those of involvement by a lymphoproliferative disorder of B-cell lineage expressing surface lambda light chains. The immunophenotypic profile is non-specific.. Cell size, as assessed by light scatter criteria, suggests a large B-cell lymphoma. Correlation of these findings with morphologic and clinical data is essential. Please refer to report [id number] for morphologic details. 3 12:09 [facility] Attestation By the signature below, the attending physician certifies that they have 1) personally conducted a gross and/or microscopic examination of the described specimen(s), and/or personally interpreted the results of laboratory testing of the described specimen(s), and 2) personally rendered or confirmed the above diagnosis. 3 12:09 [facility] at 1209 Clinical History 72 yo male with massive LAD (cervical/tongue/ret rophar.) 3 12:09 [facility] Description The specimen consists [...] CD4+ and CD8+ subsets represented. 3 12:09 [facility] Flow Markers CD10, CD19, CD20, CD3, CD4, CD45, CD5, CD8, L[place], and Lambda 3 12:09 [facility] FDA Disclaimer This test was developed and its performance characteristics determined by the Department of Pathology and Laboratory Medicine, [facility], [place], [place] It has not been cleared or [...] complexity clinical laboratory testing. 3 12:09 EDT [facility] Sample Analyzed Date and Time 10/06/22 12:30 3 12:09 EDT [facility] Scanned Images 3 12:09 EDT [facility] Tissue STRUCTURE OF ROOT OF TONGUE / Unknown 10/05/2022 8:00 EDT 10/06/2022 9:32 EDT Lg Ramírez MD PATHOLOGY ORDERABLES [facility] [address] [place] [address] documented in this encounter Visit Diagnoses Diagnosis Generalized enlarged lymph nodes Enlargement of lymph nodes documented in this encounter Care Teams Pump House Technician Relationship Specialty Start Date End Date Bobby Headley MD [address] [place] [address] PCP - General 01/18/12 documented as of this encounter
--- OUTSIDE RECORDS SUMMARY | 2023-10-11 03:38 | XMS_ITS | Encounter Summary ---
[place] [address] Care Team Providers Care Audit Associate Name Role Phone Frederick Meade MD Primary Care Provider [phone] Encounter Details Date Type Department Care Team (Latest Contact Info) Description 10/10/2023 2:29 PM EDT - 10/10/2023 2:47 PM EDT Hospital Encounter [place] [phone] Diffuse large B-cell lymphoma of lymph nodes of multiple regions; Stem cell transplant candidate; Pre-op testing Discharge Disposition: Home Social History Tobacco Use [...] Sig Dispensed Refills Start Date End Date docusate sodium (Colace) 100 mg capsule Take 100 mg by mouth 2 times daily. insulin aspart protamine-insulin aspart 70/30 (NovoLOG MIX 70/30) 100 unit/mL (70-30) Solution Inject subcutaneously daily. potassium chloride ER (Klor-Con M) 20 mEq ER micro-encapsulated crystal tablet Take 1 tablet by mouth daily for 30 days. 30 tablet 1 10/03/2023 11/02/2023 loratadine (Claritin) 10 mg Tablet Take 10 mg by mouth daily. diphenoxylate-atropi ne (Lomotil) 2.5-0.025 mg tablet Take 1 tablet [...] Care Team (Late st Contact Info) Description 10/11/2023 8:30 AM EDT Infusion Hematology Oncology at [address] [phone] 10/17/2023 1:00 PM EDT TH Visit (TeleHealth) Hematology/Oncology at [address] [phone] Adrianne Ramon MD [facility] [place] [address] Yael Merlos [facility] [place] [address] 10/17/2023 1:30 PM EDT Infusion Hematology Oncology at [address] [address] 11/14/2023 9:30 AM EDT Office Visit Hematology/Oncology at [address] [address] Adrianne Ramon MD [facility] [place] [address] Yael Merlos [facility] [place] [address] 11/14/2023 10:00 AM EDT Infusion Hematology Oncology at [address] [phone] Pending Results Name Type Priority Associated Diagnoses Date /Time EKG 12 Lead ECG Routine 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 Pre-op testing 10/10/2023 2:40 PM EDT documented as of this encounter Procedures Procedure Name Priority Date/Time Associated Diagnosis Comments EKG 12-LEAD Routine 10/10/2023 2:40 PM EDT 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
--- OUTSIDE RECORDS SUMMARY | 2023-10-11 03:38 | XMS_ITS | Encounter Summary ---
Author Organization [facility] [place] [address] Care Team Providers Care Crop Grain Or Livestock Farmer Name Role Phone Frederick Meade MD Primary Care Provider [phone] Encounter Details Date Type Department Care Team (Latest Contact Info) Description 10/10/2023 1:04 PM EDT - 10/10/2023 2:13 PM EDT Hospital Encounter Blood [place] [address] Arrived Discharge Disposition: Home Social History Tobacco Use [...] as of this encounter Progress Notes * Yudy Luo RN - 10/10/2023 2:02 PM EDT Images from the original note were not included. Cheo Freire presented to the Apheresis/Blood Donor Program for a vein assessment prior to a CAR-T Collection. Peripheral vein access evaluation scale: Good: when a tourniquet is applied the vein is easily visible and/or easy to palpate/feels spongy Fair: vein is small, scarred or difficult to palpate Poor: vein cannot be seen/palpated; vasodilates only with a heat pack Right arm Right arm cephalic: poor Right arm basilic: fair Right arm median basilic: poor Right forearm: poor Left arm Left arm cephalic: poor Left arm basilic: poor Left arm median basilic: poor Left forearm: poor Apheresis/Blood Donor Program Staff Recommendation: Venous: no Best arm for access: Best arm for return: Central Venous Catheter: yes; if yes, reason why: no good option for access, patient states they have not been using Left arm for access due to Melanoma nodule on upper arm Comments: Reviewed procedure with patient and with a tour of the unit. Reviewed comfy clothes,calcium replacement, snacks/lunch, diversion activity all with verbalized understanding. documented in this encounter Plan of Treatment Upcoming Encounters Date Type Department Care Team (Late st Contact Info) Description 10/11/2023 8:30 AM EDT Infusion Hematology Oncology at [address] [address] 10/17/2023 1:00 PM EDT TH Visit (TeleHealth) Hematology/Oncology at [address] [address] Adrianne Ramon MD [facility] H[place]AT[place]Y [place] [address] Yael Merlos APRN [facility] [place] [address] 10/17/2023 1:30 PM EDT Infusion Hematology Oncology at [address] [phone] 11/14/2023 9:30 AM EDT Office Visit Hematology/Oncology at [address] [phone] Adrianne Ramon MD [facility] HEMATOLOGY [place] [address] Yael Merlos APRN [facility] HEMATOLOGY [place] [address] 11/14/2023 10:00 AM EDT Infusion Hematology Oncology at [address] [phone] documented as of this encounter Visit Diagnoses Not on filedocumented in this encounter Care Teams Crop Grain Or Livestock Farmer Relationship Specialty Start Date End Date Frederick Meade MD [address] [facility] [facility] [address] [place] [address] PCP - General Family Medicine 11/29/17 documented as of this encounter
--- OUTSIDE RECORDS SUMMARY | 2023-10-11 03:38 | XMS_ITS | Encounter Summary ---
Author Organization [facility] Address [facility] [place] [address] Care Team Providers Care Major Appliance Assembly Supervisor Name Role Phone Frederick Meade MD Primary Care Provider [phone] Encounter Details Date Type Department Care Team (Late st Contact Info) Description 10/10/2023 Orders Only Hematology Oncology at [address] [phone] Tania Rosales, RN Diffuse large B-cell lymphoma of lymph [...] AM EDT Infusion Hematology Oncology at [address] [address] 10/17/2023 1:00 PM EDT TH Visit (TeleHealth) Hematology/Oncology at [address] [phone] Adrianne Ramon MD [facility] HEMATOLOGY [place] [address] Yael Merlos APRN [facility] HEMATOLOGY AND [place] [address] 10/17/2023 1:30 PM EDT Infusion Hematology Oncology at [address] [address] 11/14/2023 9:30 AM EDT Office Visit Hematology/Oncology at [address] [phone] Adrianne Ramon MD [facility] HEMATOLOGY AND [place] [address] Yael Merlos APRN [facility] HEMATOLOGY [place] [address] 11/14/2023 10:00 AM EDT Infusion Hematology Oncology at [address] [phone] documented as of this encounter Visit Diagnoses Diagnosis Diffuse large B-cell lymphoma of lymph nodes of multiple regions documented in this encounter Care Teams Major Appliance Assembly Supervisor Relationship Specialty Start Date End Date Frederick Meade MD [address] [place] [address] [address] [place] [address] PCP - General Family Medicine 11/29/17 documented as of this encounter
--- OUTSIDE RECORDS SUMMARY | 2023-10-11 03:38 | XMS_ITS | Encounter Summary ---
Author Organization [facility] [place] [address] Care Team Providers Care It Security Manager Name Role Phone Frederick Meade MD Primary Care Provider [phone] Reason for Referral * Consultation (Routine) - Authorized Specialty Diagnoses / Procedures Referred By Paul bowen Referred To Contact Gastroenterology Diagnoses Screening for colon cancer 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 Pre-op testing Micha Givens Jr., MD [facility] DR [place] [address] Referral ID Status Reason Start Date Expiration Date Visits Requested Visits Authorized [id number] Authorized Test Only 09/26/2023 03/24/2024 1 1 Encounter Details Date Type Department Care Team (Late st Contact Info) Description 09/25/2023 Orders Only Hematology [place] [address] Micha Givens Jr., MD [facility] [place] [address] Screening for colon cancer; Diffuse large B-cell [...] AM EDT Infusion Hematology Oncology at [address] [phone] 10/17/2023 1:00 PM EDT TH Visit (TeleHealth) Hematology/Oncology at [address] [phone] Adrianne Ramon MD [facility] DR HEMATOLOGY [place] [address] Yael Merlos, [facility] [place] [address] 10/17/2023 1:30 PM EDT Infusion Hematology Oncology at [address] [phone] 11/14/2023 9:30 AM EDT Office Visit Hematology/Oncology at [address] [phone] Adrianne Ramon MD [facility] [place] [address] Yael Merlos, [facility] [place] [address] 11/14/2023 10:00 AM EDT Infusion Hematology Oncology at [address] [phone] Scheduled Referrals Name Type Priority Associated Diagnoses [...] unspecified documented in this encounter Care Teams It Security Manager Relationship Specialty Start Date End Date Frederick Meade MD [address] [place] [address] [address] [place] [address] PCP - General Family Medicine 11/29/17 documented as of this encounter
--- OUTSIDE RECORDS SUMMARY | 2023-10-11 03:38 | XMS_ITS | Encounter Summary ---
Author Organization [facility] Address [place] [address] Care Team Providers Care Country Director Name Role Phone Frederick Meade MD Primary Care Provider [phone] Reason for Visit * Consultation (Routine) - Authorized Specialty Diagnoses / Procedures Referred By Contdamir t Referred To Contact Diagnoses 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 Pre-op testing Micha Givens Jr., MD [facility] DR HEMATOLOGY [place] [address] [facility] [place] [address] Referral ID Status Reason Start Date Expiration Date Visits Requested Visits Authorized [id number] Authorized Continuity of Care 09/21/2023 09/20/2024 1 1 Encounter Details Date Type Department Care Team (Late st Contact Info) Description 09/25/2023 10:00 AM EDT Telephone Hematology [place] [phone] Elva Sutherland RD [facility] [place] [address] Social History Tobacco Use Types Packs/Day Years [...] Sutherland, RD - 09/25/2023 9:01 AM EDT [facility] BMT Pretransplant NutritionTeaching Pt: Cheo Freire [...] cheeses including brie, camembert, feta, cheatham's -- North Korean style soft cheeses including queso francisco, and queso fresco -- Malagasy containing chili pepper or other uncooked vegetables [...] use well water include filtration, distillation, boiling --https://www.cdc.gov/healthywater/drinking/fiel-twpxn-gewhnahbh/household_water _treatment.html --ht tps://www.cdc.gov/healthywater/pdf/drinking/household_water_treatment.pdf --https://www.cdc.gov/healthywater/drinking/focrilfu-vepza-yhy.html#how_bwa -Well water must be boiled for 1 [...] at future lab draw. Educational material provided: [facility] Food Safety Guidelines for the Patient with [...] AM EDT Infusion Hematology Oncology at [address] [phone] 10/17/2023 1:00 PM EDT TH Visit (TeleHealth) Hematology/Oncology at [address] [phone] Adrianne Ramon MD [facility] [place] [address] Yael Merlos ELECTRICAL ENGINEERING TECHNOLOGIST [facility] HEMATOLOGY AND [place] [address] 10/17/2023 1:30 PM EDT Infusion Hematology Oncology at [address] [phone] 11/14/2023 9:30 AM EDT Office Visit Hematology/Oncology at [address] [phone] Adrianne Ramon MD [facility] [place] [address] Yael Merlos, [facility] [place] [address] 11/14/2023 10:00 AM EDT Infusion Hematology Oncology at [address] [phone] documented as of this encounter Visit Diagnoses Not on filedocumented in this encounter Care Teams Country Director Relationship Specialty Start Date End Date Frederick Meade MD [address] [place] [address] PCP - General Family Medicine 11/29/17 documented as of this encounter
--- OUTSIDE RECORDS SUMMARY | 2023-10-11 03:38 | XMS_ITS | Encounter Summary ---
Author Organization [facility] [place] [address] Care Team Providers Care Operations General Agent Name Role Phone Frederick Meade MD Primary Care Provider [phone] Encounter Details Date Type Department Care Team (Latest Contact Info) Description 10/03/2023 Travel Social History Tobacco Use Types Packs/Day [...] AM EDT Infusion Hematology Oncology at [address] [phone] 10/17/2023 1:00 PM EDT TH Visit (TeleHealth) Hematology/Oncology at [address] [phone] Adrianne Ramon MD [facility] [place] [address] Yael Merlos APRN [facility] [place] [address] 10/17/2023 1:30 PM EDT Infusion Hematology Oncology at [address] [phone] 11/14/2023 9:30 AM EDT Office Visit Hematology/Oncology at [address] [phone] Adrianne Ramon MD [facility] [place] [address] Yael Merlos APRN [facility] [place] [address] 11/14/2023 10:00 AM EDT Infusion Hematology Oncology at [address] [phone] documented as of this encounter Visit Diagnoses Not on filedocumented in this encounter Care Teams Operations General Agent Relationship Specialty Start Date End Date Frederick Meade MD [address] [place] [address] PCP - General Family Medicine 11/29/17 documented as of this encounter
--- OUTSIDE RECORDS SUMMARY | 2023-10-11 03:38 | XMS_ITS | Encounter Summary ---
Author Organization [facility] Address [facility] [place] [address] Care Team Providers Care Credit Control Administrator Name Role Phone Frederick Meade MD Primary Care Provider [phone] Encounter Details Date Type Department Care Team (Latest Contact Info) Description 09/26/2023 Unscheduled Encounter Hematology/Oncology at [address] [phone] Nimisha Hale, RD [facility] DR HEMATOLOGY [place] [address] Diffuse large B-cell lymphoma of lymph nodes [...] AM EDT Infusion Hematology Oncology at [address] [phone] 10/17/2023 1:00 PM EDT TH Visit (TeleHealth) Hematology/Oncology at [address] [phone] Adrianne Ramon MD [facility] HEMATOLOGY [place] [address] Yael Merlos, [facility] HEMATOLOGY [place] [address] 10/17/2023 1:30 PM EDT Infusion Hematology Oncology at [address] [phone] 11/14/2023 9:30 AM EDT Office Visit Hematology/Oncology at [address] [phone] Adrianne Ramon MD [facility] HEMATOLOGY [place] [address] Yael Merlos [facility] HEMATOLOGY [place] [address] 11/14/2023 10:00 AM EDT Infusion Hematology Oncology at [address] [phone] documented as of this encounter Visit Diagnoses Diagnosis Diffuse large B-cell lymphoma of lymph nodes of multiple regions documented in this encounter Care Teams Credit Control Administrator Relationship Specialty Start Date End Date Frederick Meade MD [address] [place] [address] PCP - General Family Medicine 11/29/17 documented as of this encounter
--- OUTSIDE RECORDS SUMMARY | 2023-10-11 03:38 | XMS_ITS | Encounter Summary ---
Author Organization [facility] Address [facility] [place] [address] Care Team Providers Care Regulatory Affairs Portfolio Leader Name Role Phone Frederick Meade MD Primary Care Provider [phone] Reason for Visit * Reason Comments Chemotherapy * Treatment/Therapy Plan Authorization (Routine) - Authorized Specialty Diagnoses / Procedures Referred By Contac t Referred To Contact Hematology and Oncology Diagnoses Diffuse large B-cell lymphoma of lymph nodes of multiple regions Adrianne Ramon MD [facility] DR HEMATOLOGY [place] [address] Stj Hem Onc Infusion [address] [place] [address] Referral ID Status Reason Start Date Expiration Date V isits Requested Visits Authorized [id number] Authorized 09/12/2023 09/11/2024 99 99 Encounter Details Date Type Department Care Team (Late st Contact Info) Description 09/26/2023 8:30 AM EDT Infusion Hematology Oncology at [address] [phone] Diffuse large B-cell lymphoma of [...] complaints. OBJECTIVE LAB DATA: completed today at [facility] BGL 605 alerted GENERAL OFFICE CLERK who contacted patients PCP and plan has [...] AM EDT Infusion Hematology Oncology at [address] [phone] 10/17/2023 1:00 PM EDT TH Visit (TeleHealth) Hematology/Oncology at [address] [phone] Adrianne Ramon MD [facility] HEMATOLOGY [place] [address] Yael Merlos APRN [facility] HEMATOLOGY [place] [address] 10/17/2023 1:30 PM EDT Infusion Hematology Oncology at [address] [phone] 11/14/2023 9:30 AM EDT Office Visit Hematology/Oncology at [address] [phone] Adrianne Ramon MD [facility] DR HEMATOLOGY [place] [address] Yael Merlos APRN [facility] HEMATOLOGY [place] [address] 11/14/2023 10:00 AM EDT Infusion Hematology Oncology at [address] [phone] documented as of this encounter Visit Diagnoses [...] mL/hr documented in this encounter Care Teams Regulatory Affairs Portfolio Leader Relationship Specialty Start Date End Date Frederick Meade MD [address] [place] [address] PCP - General Family Medicine 11/29/17 documented as of this encounter
--- OUTSIDE RECORDS SUMMARY | 2023-10-11 03:38 | XMS_ITS | Encounter Summary ---
Author Organization [facility] [place] [address] Care Team Providers Care Company Miner Blasting Name Role Phone Frederick Meade MD Primary Care Provider [phone] Encounter Details Date Type Department Care Team (Latest Contact Info) Description 10/10/2023 Travel Social History Tobacco Use Types Packs/Day [...] AM EDT Infusion Hematology Oncology at [address] [phone] 10/17/2023 1:00 PM EDT TH Visit (TeleHealth) Hematology/Oncology at [address] [phone] Adrianne Ramon MD [facility] H[place]ATOLOG[place] [address] Yael Merlos APRN [facility] [place] [address] 10/17/2023 1:30 PM EDT Infusion Hematology Oncology at [address] [phone] 11/14/2023 9:30 AM EDT Office Visit Hematology/Oncology at [address] [phone] Adrianne Ramon MD [facility] [place] [address] Yael Merlos APRN [facility] [place] [address] 11/14/2023 10:00 AM EDT Infusion Hematology Oncology at [address] [phone] documented as of this encounter Visit Diagnoses Not on filedocumented in this encounter Care Teams Company Miner Blasting Relationship Specialty Start Date End Date Frederick Meade MD [address] [place] [address] PCP - General Family Medicine 11/29/17 documented as of this encounter
--- OUTSIDE RECORDS SUMMARY | 2023-10-11 03:38 | XMS_ITS | Encounter Summary ---
Author Organization [facility] [place] [address] Care Team Providers Care Sack Keeper Name Role Phone Frederick Meade MD Primary Care Provider +1 [phone] Encounter Details Date Type Department Care Team [...] AM EDT Infusion Hematology Oncology at [address] [address] 10/17/2023 1:00 PM EDT TH Visit (TeleHealth) Hematology/Oncology at [address] [address] Adrianne Ramon MD [facility] HEMATOLOGY [place] [address] Yael Merlos APRN [facility] HEMATOLOGY [place] [address] 10/17/2023 1:30 PM EDT Infusion Hematology Oncology at [address] [address] 11/14/2023 9:30 AM EDT Office Visit Hematology/Oncology at [address] [address] Adrianne Ramon MD [facility] HEMATOLOGY [place] [address] Yael Merlos APRN [facility] HEMATOLOGY [place] [address] 11/14/2023 10:00 AM EDT Infusion Hematology Oncology at [address] [address] documented as of this encounter Visit Diagnoses Not on filedocumented in this encounter Care Teams Sack Keeper Relationship Specialty Start Date End Date Frederick Meade MD [address] [place] [address] PCP - General Family Medicine 11/29/17 documented as of this encounter
--- OUTSIDE RECORDS SUMMARY | 2023-10-11 03:38 | XMS_ITS | Encounter Summary ---
Author Organization [facility] Address [facility] [place] [address] Care Team Providers Care Refrigerated Company Driver Name Role Phone Frederick Meade MD Primary Care Provider [phone] [phone] Reason for Visit * Reason Comments Chemotherapy * Treatment/Therapy Plan Authorization (Routine) - Authorized Specialty Diagnoses / Procedures Referred By Contac t Referred To Contact Hematology and Oncology Diagnoses Diffuse large B-cell lymphoma of lymph nodes of multiple regions Adrianne Ramon MD [facility] [address] HEMATOLOGY [place] [address] Stj Hem Onc Infusion [address] [place] [phone] Referral ID Status Reason Start Date Expiration Date V isits Requested Visits Authorized [id number] Authorized 09/12/2023 09/11/2024 99 99 Encounter Details Date Type Department Care Team (Late st Contact Info) Description 10/03/2023 10:30 AM EDT Infusion Hematology Oncology at [address] [address] Diffuse large B-cell lymphoma of [...] Progress Notes * Joaquina Haque, RN - 10/03/2023 10:30 AM EDT INFUSION THERAPY ADMINISTRATION NOTES DIAGNOSIS: DLBCL CYCLE #: [id number] REASON FOR VISIT: Rituxan SUBJECTIVE Cheo offers no complaints. OBJECTIVE LAB DATA: completed today at [facility] adequate for treatment Pre administration: Chemotherapy orders independently verified for [...] AM EDT Infusion Hematology Oncology at [address] [address] 10/17/2023 1:00 PM EDT TH Visit (TeleHealth) Hematology/Oncology at [address] [address] Adrianne Ramon MD [facility] HEMATOLOGY [place] [address] Yael Merlos APRN [facility] HEMATOLOGY [place] [address] 10/17/2023 1:30 PM EDT Infusion Hematology Oncology at [address] [address] 11/14/2023 9:30 AM EDT Office Visit Hematology/Oncology at [address] [address] Adrianne Ramon MD [facility] HEMATOLOGY [place] [address] Yael Merlos, [facility] HEMATOLOGY [place] [address] 11/14/2023 10:00 AM EDT Infusion Hematology Oncology at [address] [phone] documented as of this encounter Visit Diagnoses Diagnosis Diffuse large B-cell lymphoma of lymph nodes of multiple regions documented in this encounter Administered Medications Inactive Administered Medications - up to 3 most recent administrations Medication Order MAR Action Action Date Dose Rate Site acetaminophen (Tylenol) tablet 650 mg 650 mg, Oral, ONCE, 1 dose, On Sun10/03/23 at 1115, Administer prior to riTUXimab., Routine Given 10/03/2023 11:10 AM EDT 650 mg dexAMETHasone (Decadron) tablet 10 mg 10 mg, Oral, ONCE, 1 dose, On Sun10/03/23 at 1145, Administer prior to riTUXimab, Routine Given 10/03/2023 11:09 AM EDT 10 mg diphenhydrAMINE (Benadryl) capsule 50 mg 50 mg, Oral, ONCE, 1 dose, On Sun10/03/23 at 1115, Administer prior to riTUXimab, Routine Given 10/03/2023 11:09 AM EDT 50 mg riTUXimab-pvvr (Ruxience) 800 mg in sodium chloride 0.9% 400 mL infusion 800 mg (rounded from 780 mg = 375 mg/m2/dose ? 2.08 m2 Treatment Plan BSA from Recorded weight), Intravenous, ONCE, 1 dose, On Sun10/03/23 at 1215, Administer Per Protocol, Is this product being used for treatment of malignant indication? Yes, Patient is a candidate for rapid infusion riTUXimab? No New Bag 10/03/2023 12:02 PM EDT 800 mg sodium chloride 0.9% infusion 150 mL/hr, Intravenous, CONTINUOUS, Starting on Sun10/03/23 at 1115, Until Sun10/03/23 at 1727 New Bag 10/03/2023 11:10 AM EDT 150 mL/hr 150 mL/hr documented in this encounter Care Teams Refrigerated Company Driver Relationship Specialty Start Date End Date Frederick Meade MD [address] [place] [address] PCP - General Family Medicine 11/29/17 documented as of this encounter
--- OUTSIDE RECORDS SUMMARY | 2023-10-11 03:38 | XMS_ITS ---
[place] [address] Care Team Providers Care Bulldozer/Loader/Compactor/Scraper Name Role Phone Frederick Meade MD Primary Care Provider [phone] [phone] Active Problems Problem Noted Date Diagnosed Date Abnormal echocardiogram 11/20/2022 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 10/10/2022 Anemia, iron deficiency 08/21/2018 Gout 05/31/2017 Malignant neoplasm of prostate 09/01/2014 Current Oncology Plans [facility] HEM LYMPHOMA (HEMATOLOGIC MALIGNANCIES) - riTUXimab (WEEKLY)* Plan Start Date:09/19/2023 Plan Provider:Adrianne Ramon MD Linked Problems 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 Treatment Medications Current Day (Day 2 2, Cycle 1 - Planned for 10/11/2023) riTUXimab-pvvr (Ruxience) (2 mg/mL) in sodium chloride [...] Treatment Medications Discontinue Reason Plan Provider Cycles [facility] HEM LYMPHOMA (NHL) - R-CHOP (21 DAY) 10/19/19 23 06/22/2023 cycloPHOSphamide (Cytoxan) in sodium chloride 0.9% 250 mL infusionDOXOrubicin (Adriamycin)riTUXimab -pvvr (Ruxience) (2 mg/mL) in sodium chloride 0.9% infusionvinCRIStine (Oncovin) in sodium chloride 0.9% 25 mL infusion Therapy Complete Adrianne Ramon MD 6 of 6 cycles started Radiation Treatments * No radiation treatments are documented for this patient in [facility]. Treatments may have been administered [...] Potential late effects of treatment(s): Late and [place] effects or radiation therapy to the prostate [...] Findings and based on age. Nutrition--Follow the [place] [employer] Guidelines that include the following: [...] Helpful websites www. cancer. gov National Cancer [place] www.nccn.org National Comprehensive Cancer Network www.canceradvocacy.org National Coalition for Cancer Survivorship www.livestrong.org Livestrong Survivor Care www.acscsn.org Cancer Survivors Network Anna Carr APRN- Radiation Oncology Adapted from [place] Society of Clinical Oncology 2008 Cancer Treatment Plan Summary Survivorship care provider contacts SPA COORDINATOR: Anna Carr
--- OUTSIDE RECORDS SUMMARY | 2023-10-11 03:38 | XMS_ITS | Encounter Summary ---
[place] [address] Care Team Providers Care Glassine Machine Tender Name Role Phone Frederick Meade MD Primary Care Provider [phone] [phone] Encounter Details Date Type Department Care Team (Latest Contact Info) Description 10/10/2023 2:48 PM EDT - 10/10/2023 11:59 PM EDT Hospital Encounter [place] [phone] Diffuse large B-cell lymphoma of lymph nodes [...] Sig Dispensed Refills Start Date End Date lenalidomide (Revlimid) 20 mg capsuleIndications: progressive diffuse large B-cell lymphoma Take 1 capsule (20 mg) by mouth daily for 21 days. Call clinic before starting medication. Indications: progressive diffuse large B-cell lymphoma 21 capsule 10/10/2023 10/31/2023 docusate sodium (Colace) 100 mg capsule Take [...] Tablet Take 10 mg by mouth daily. diphenoxylate-atrop ine (Lomotil) 2.5-0.025 mg tablet Take 1 tablet by mouth 4 times daily as needed for Diarrhea. lactobacillus (BACID) Capsule Take 1 tablet by mouth daily. Psyllium Seed-Sucrose (0) Powder Take by mouth 2 times daily as needed. allopurinoL (Zyloprim) 100 mg tablet Take 200 mg by mouth daily. amLODIPine (Norvasc) 5 mg tablet Take 5 mg by mouth daily. Retail OptimizationTOUCH ULTRA BLUE TEST STRIP Strip USE TO TEST DAILY 3 03/13/2018 [employer] DELICA 33 gauge Misc USE TO TEST [...] AM EDT Infusion Hematology Oncology at [address] [address] 10/17/2023 1:00 PM EDT TH Visit (TeleHealth) Hematology/Oncology at [address] [address] Adrianne Ramon MD [facility] HEMATOLOGY [place] [address] Yael Merlos APRN [facility] HEMATOLOGY [place] [address] 10/17/2023 1:30 PM EDT Infusion Hematology Oncology at [address] [address] 11/14/2023 9:30 AM EDT Office Visit Hematology/Oncology at [address] [address] Adrianne Ramon MD [facility] HEMATOLOGY [place] [address] Yael Merlos CASE FINISHING MACHINE ADJUSTER [facility] HEMATOLOGY [place] [address] 11/14/2023 10:00 AM EDT Infusion Hematology Oncology at [address] [phone] documented as of this encounter Procedures Procedure Name Priority Date/Time Associated Diagnosis Comments COMMON PULMONARY FUNCTION TEST Routine 10/10/2023 3:24 PM EDT 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 Pre-op testing documented in this encounter Results * Common Pulmonary Function Test (10/10/2023 3:24 PM EDT) FVC Actual Pre-BD 3.84 L COMPAS PFT FVC Pre-BD % of Predicted 109 % COMPAS PFT FVC Predicted 3.51 L COMPAS PFT FVC Lower Limits of Normal 2.56 L COMPAS PFT FVC Pre-BD Z-Score 0.57 COMPAS PFT FEV1 Actual Pre-BD 2.18 L COMPAS PFT FEV1 Pre-BD % of Predicted 82 % COMPAS PFT FEV1 Predicted 2.65 L COMPAS PFT FEV1 Lower Limits of Normal 1.87 L COMPAS PFT FEV1 Pre-BD Z-Score -1.01 COMPAS PFT FEV1 / FVC Actual Pre-BD 57 % COMPAS PFT FEV1/FVC Pre-BD Z-Score -2.14 COMPAS PFT [id number] Actual Pre-BD 1.11 % COMPAS PFT [id number] Predicted 2 % COMPAS PFT EPH02-24 Pre-BD % of Predicted 56 % COMPAS PFT NMK66-97 Pre-BD Z-Score -1.17 COMPAS PFT DLCO Hb Actual Pre-BD 13.75 mL/min/mmHg COMPAS PFT DLCO Hb Pre-BD % of Predicted 62 % COMPAS PFT DLCO Hb Predicted 22.22 mL/min/mmHg COMPAS PFT DLCO Hb Pre-BD Z-Score -2.41 COMPAS PFT DLCO UNC ACT PRE-BD 12.90 mL/min/mmHg COMPAS PFT DLCO UNC PRE-BD % of PRED 58 % COMPAS PFT DLCO [facility]C Predicted 22.22 mL/min/mmHg COMPAS PFT DLCO UNC PRE-BD Z-SCORE -2.7 COMPAS PFT Narrative COMPAS PFT - 10/10/2023 3:24 PM EDT FINDINGS: FEV1 and FVC are normal, FEV1/VC is reduced. Diffusion capacity is reduced even when adjusted for hemoglobin of 12.2 g/dL. IMPRESSION: Spirometry demonstrates mild (FEV1 >70%) obstruction. Mild reduction in diffusing capacity (DLCO > 60% and < lower limit of normal). Obstruction combined with a reduced diffusion capacity suggests emphysema. Procedure Note Chalo Kenyon MD - 10/10/2023 FINDINGS: FEV1 and FVC are normal, FEV1/VC is reduced. Diffusion capacityis reduced even when adjusted for hemoglobin of 12.2 g/dL. IMPRESSION: Spirometry demonstrates mild (FEV1 >70%) obstruction. Mildreduction in diffusing capacity (DLCO > 60% and < lower limit of normal). Obstruction combinedwith a reduced diffusion capacity suggests emphysema. Micha Givens Jr., MD PFT ORDERABLES COMPAS PFT documented in this encounter Visit Diagnoses Diagnosis 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 Pre-op testing Preoperative examination, unspecified documented in this encounter Care Teams Glassine Machine Tender Relationship Specialty Start Date End Date Frederick Meade MD [address] [place] [address] PCP - General Family Medicine 11/29/17 documented as of this encounter
--- OUTSIDE RECORDS SUMMARY | 2023-10-11 03:38 | XMS_ITS | Encounter Summary ---
Author Organization [facility] Address [facility] [place] [address] Care Team Providers Care Painter And Decorator Apprentice Name Role Phone Frederick Meade MD Primary Care Provider [phone] [phone] Encounter Details Date Type Department Care Team (Latest Contact Info) Description 10/10/2023 2:14 PM EDT - 10/10/2023 2:28 PM EDT Hospital Encounter XRay at [address] [place] [address] Micha Givens Jr., MD [facility] [place] [address] Diffuse large B-cell lymphoma of lymph nodes [...] AM EDT Infusion Hematology Oncology at [address] [address] 10/17/2023 1:00 PM EDT TH Visit (TeleHealth) Hematology/Oncology at [address] [address] Adrianne Ramon MD [facility] [place] [address] Yael Merlos APRN [facility] [place] [address] 10/17/2023 1:30 PM EDT Infusion Hematology Oncology at [address] [address] 11/14/2023 9:30 AM EDT Office Visit Hematology/Oncology at [address] [address] Adrianne Ramon MD [facility] [place] [address] Yael Merlos TOE STAPLER [facility] [place] [address] 11/14/2023 10:00 AM EDT Infusion Hematology Oncology at [address] [phone] Pending Results Name Type Priority Associated Diagnoses Date /Time XR Chest PA & Lateral (Generic) Imaging Routine 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 Pre-op testing 10/10/2023 2:21 PM EDT Scheduled Orders Name Type Priority Associated Diagnoses Orde r Schedule XR Chest PA & Lateral (Generic) Imaging Routine 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 Pre-op testing 1 Occurrences starting 10/10/2023 until 10/10/2023 documented as of this encounter Visit Diagnoses Diagnosis 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 Pre-op testing Preoperative examination, unspecified documented in this encounter Care Teams Painter And Decorator Apprentice Relationship Specialty Start Date End Date Frederick Meade MD [address] [place] [address] PCP - General Family Medicine 11/29/17 documented as of this encounter
--- OUTSIDE RECORDS SUMMARY | 2023-10-11 03:38 | XMS_ITS | Encounter Summary ---
Author Organization [facility] Address [facility] [place] [address] Care Team Providers Care Sound Effects Technician Name Role Phone Frederick Meade MD Primary Care Provider [phone] [phone] Reason for Visit * Reason Onset Date Comments Hyperglycemia 09/26/2023 Encounter Details Date Type Department Care Team (Late st Contact Info) Description 09/26/2023 Notes Only Hematology [place] [address] Yael Merlos APRN [facility] [place] [address] Hyperglycemia Social History Tobacco Use Types Packs/Day [...] this encounter Progress Notes * Yael Merlos, COMPUTER CUSTOMER SUPPORT SPECIALIST - 09/26/2023 11:21 AM EDT Cheo returns to clinic today for continued treatment with Revlimid and Rituxan. Today is day 8 ofcycle #1. He is scheduled to receive a dose of Rituxan today. [facility] [...] in clinic. I have asked the clinical pathology laboratory director to stop by and review dietary recommendations. Yael Merlos, MSN, COMPUTER CUSTOMER SUPPORT SPECIALIST Nurse practitioner Section of Hematology documented in this encounter Plan of Treatment Upcoming Encounters Date Type Department Care Team (Late st Contact Info) Description 10/11/2023 8:30 AM EDT Infusion Hematology Oncology at [address] [address] 10/17/2023 1:00 PM EDT TH Visit (TeleHealth) Hematology/Oncology at [address] [address] Adrianne Ramon MD [facility] HEMATOLOGY AND [place] [address] Yael Merlos APRN [facility] HEMATOLOGY AND [place] [address] 10/17/2023 1:30 PM EDT Infusion Hematology Oncology at [address] [address] 11/14/2023 9:30 AM EDT Office Visit Hematology/Oncology at [address] [address] Adrianne Ramon MD [facility] HEMATOLOGY [place] [address] Yael Merlos APRN [facility] HEMATOLOGY [place] [address] 11/14/2023 10:00 AM EDT Infusion Hematology Oncology at [address] [phone] documented as of this encounter Visit Diagnoses Not on filedocumented in this encounter Care Teams Sound Effects Technician Relationship Specialty Start Date End Date Frederick Meade MD [address] [place], [place] [id number] PCP - General Family Medicine 11/29/17 documented as of this encounter
--- OUTSIDE RECORDS SUMMARY | 2023-10-11 03:38 | XMS_ITS | Encounter Summary ---
Author Organization [facility] Address [facility] [place] [address] Care Team Providers Care Data Entry Associate Name Role Phone Frederick Meade MD Primary Care Provider [phone] [phone] Reason for Visit * Reason Onset Date Comments Follow-up 10/04/2023 Re constipation Encounter Details Date Type Department Care Team (Late st Contact Info) Description 10/04/2023 Telephone Hematology/Oncology at [address] [phone] Colt Ardon, RN Follow-up (Re constipation ) Social History Tobacco Use Types Packs/Day [...] Telephone Encounter - Colt Ardon RN - 10/04/2023 10:41 AM EDT Called and spoke with Cheo Freire's SO Claritza who was happy to report Cheo has BM yesterday and another today. He is feeling much better. They are advised he can continue using Colace and/or Metamucil as needed and to call with any further concerns or questions and were thankful for the follow up call. ----- Message from Polly Lugo RN sent at 10/03/2023 3:10 PM EDT ----- Regarding: please call Please call pt and see if constipation has resolved if issues review with lorenza hamilton documented in this encounter Plan of Treatment Upcoming Encounters Date Type Department Care Team (Late st Contact Info) Description 10/11/2023 8:30 AM EDT Infusion Hematology Oncology at [address] [phone] 10/17/2023 1:00 PM EDT TH Visit (TeleHealth) Hematology/Oncology at [address] [phone] Adrianne Ramon MD [facility] H[place]AT[place] [address] Yael Merlos, KARLA [facility] [place] [address] 10/17/2023 1:30 PM EDT Infusion Hematology Oncology at [address] [phone] 11/14/2023 9:30 AM EDT Office Visit Hematology/Oncology at [address] [phone] Adrianne Ramon MD [facility] HEMAT[place] [address] Yael Merlos MARINE FARMER [facility] [place]EMAT[place] [address] 11/14/2023 10:00 AM EDT Infusion Hematology Oncology at [address] [phone] documented as of this encounter Visit Diagnoses Not on filedocumented in this encounter Care Teams Data Entry Associate Relationship Specialty Start Date End Date Frederick Meade MD [address] [place] [address] PCP - General Family Medicine 11/29/17 documented as of this encounter
--- OUTSIDE RECORDS SUMMARY | 2023-10-11 03:38 | XMS_ITS | Clinical Summary ---
Author Organization [facility] [place] [address] Care Team Providers Care Balloon Tester Name Role Phone Frederick Meade MD Primary Care Provider [phone] Allergies No known active allergies Medications Medication [...] Take 200 mg by mouth daily. Active diphenoxylate-at ropine (Lomotil) 2.5-0.025 mg tablet Take 1 tablet by mouth 4 times daily as needed for Diarrhea. Active lactobacillus (BACID) Capsule Take 1 tablet by mouth daily. Active loratadine (Claritin) 10 mg Tablet Take 10 mg by mouth daily. Active docusate sodium (Colace) 100 mg capsule Take 100 mg by mouth 2 times daily. Active insulin aspart protamine-insuli n aspart 70/30 (NovoLOG MIX 70/30) 100 unit/mL (70-30) Solution Inject subcutaneously daily. Active potassium chloride ER (Klor-Con M) 20 mEq ER micro-encapsulat ed crystal tablet Take 1 tablet by mouth daily for 30 days. 30 tablet 1 10/03/2023 11/02/2023 Active lenalidomide (Revlimid) 20 mg capsuleIndicatio ns:progressive diffuse large B-cell lymphoma Take 1 capsule (20 mg) by mouth daily for 21 days. Call clinic before starting medication. Indications: progressive diffuse large B-cell lymphoma 21 capsule 10/10/2023 10/31/2023 Active Active Problems Problem Noted Date Diagnosed Date Abnormal echocardiogram 11/20/2022 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 10/10/2022 Anemia, iron deficiency 08/21/2018 Gout 05/31/2017 Malignant neoplasm of prostate 09/01/2014 Encounters Date Type Department Care Team Description 10/11/2023 8:30 AM EDT Infusion Hematology Oncology at [address] [phone] 10/10/2023 2:48 PM EDT - 10/10/2023 11:59 PM EDT Hospital En[place] [address] Diffuse large B-cell lymphoma of lymph nodes of multiple regions; Stem cell transplant candidate; Pre-op testing Discharge Disposition: Home 10/10/2023 2:29 PM EDT - 10/10/2023 2:47 PM EDT Hospital Encounter [place] [address] Diffuse large B-cell lymphoma of lymph nodes of multiple regions; Stem cell transplant candidate; Pre-op testing Discharge Disposition: Home 10/10/2023 2:14 PM EDT - 10/10/2023 2:28 PM EDT Hospital Encounter XRay at [address] [place] [address] Micha Givens Jr., MD Diffuse large B-cell lymphoma of lymph nodes of multiple regions; Stem cell transplant candidate; Pre-op testing Discharge Disposition: Home 10/10/2023 1:04 PM EDT - 10/10/2023 2:13 PM EDT Hospital Encounter [place] [phone] Arrived Discharge Disposition: Home 10/10/2023 Travel 10/10/2023 Orders Only Hematology Oncology at [address] [address] Tania Rosales RN Diffuse large B-cell lymphoma of lymph nodes of multiple regions 10/04/2023 Telephone Hematology/Oncolog y at [address] [address] Colt Ardon RN Follow-up (Re constipation ) 10/03/2023 10:30 AM EDT Infusion Hematology Oncology at [address] [phone] Diffuse large B-cell lymphoma of lymph nodes of multiple regions 10/03/2023 10:00 AM EDT Office Visit Hematology/Oncolog y at [address] [phone] Adrianne Ramon MD Stearns, Diane M, BOX PRINTING MACHINE OPERATOR Diffuse large B-cell lymphoma of lymph nodes of multiple regions 10/03/2023 Travel 09/28/2023 Telephone Hematology/Oncolog y at [address] [address] Colt Ardon RN Constipation 09/26/2023 8:30 AM EDT Infusion Hematology Oncology at [address] [address] Diffuse large B-cell lymphoma of lymph nodes of multiple regions 09/26/2023 Unscheduled Encounter Hematology/Oncolog y at [address] [address] Nimisha Hale, KVNG Diffuse large B-cell lymphoma of lymph nodes of multiple regions 09/26/2023 Notes Only Hematology [place] [address] Yael Merlos, BOX PRINTING MACHINE OPERATOR Hyperglycemia 09/26/2023 Travel 09/25/2023 10:00 AM EDT Telephone Hematology [place] [address] 09/25/2023 Orders Only Hematology [place] [address] Micha Givens Jr., MD Screening for colon cancer; Diffuse large B-cell lymphoma of lymph nodes of multiple regions; Stem cell transplant candidate; Pre-op testing 09/21/2023 10:51 AM EDT - 09/21/2023 11:59 PM EDT Hospital Encounter Hematology [place] [address] Diffuse large B-cell lymphoma of lymph nodes of multiple regions; Stem cell transplant candidate; Pre-op testing; Prostate cancer screening; Iron deficiency anemia, unspecified iron deficiency anemia type Discharge Disposition: Home 09/21/2023 10:30 AM EDT Clinical Support Hematology and Oncology at [place] [phone] Danii Her, RN Diffuse large B-cell lymphoma of lymph nodes of multiple regions 09/21/2023 9:30 AM EDT Office Visit Hematology and Oncology at [place] [phone] Micha Givens Jr., MD Diffuse large B-cell lymphoma of lymph nodes of multiple regions; Iron deficiency anemia, unspecified iron deficiency anemia type; Non-Hodgkin lymphoma of lymph nodes of multiple regions, unspecified non-Hodgkin lymphoma type 09/21/2023 Orders Only Hematology [place] [address] Micha Givens Jr., MD Diffuse large B-cell lymphoma of lymph nodes of multiple regions; Stem cell transplant candidate; Pre-op testing; At high risk for bleeding; Prostate cancer screening; Iron deficiency anemia, unspecified iron deficiency anemia type 09/21/2023 Travel 09/20/2023 Orders Only Hematology [place] [address] Micha Givens Jr., MD Diffuse large B-cell lymphoma of lymph nodes of multiple regions 09/19/2023 8:00 AM EDT Infusion Hematology Oncology at [address] [address] Diffuse large B-cell lymphoma of lymph nodes of multiple regions 09/19/2023 Telephone Hematology/Oncolog y at [address] [phone] Polly Orellana, OSCAR Other (Prednisone taper ) 09/19/2023 Orders Only Hematology [place] [phone] Adrianne Ramon MD 09/19/2023 Orders Only Hematology [place] [phone] Yael Merlos, BOX PRINTING MACHINE OPERATOR Diffuse large B-cell lymphoma of lymph nodes of multiple regions 09/19/2023 Telephone Hematology/Oncolog y at [address] [phone] Polly Orellana RN Follow-up (Possible free drug thru [facility]) 09/19/2023 Notes Only Hematology/Oncolog y at [address] [address] Shelley Cason, FRANCISCO J 09/19/2023 Travel 09/14/2023 Telephone Hematology/Oncolog y at [address] [phone] Brenda Priest RN 09/13/2023 Telephone Hematology/Oncolog y at [address] [phone] Colt Ardon RN Other (Financial paperwork ) 09/12/2023 10:15 AM EDT Office Visit Hematology/Oncolog y at [address] [phone] Adrianne Ramon MD Stearns, Diane M, BOX PRINTING MACHINE OPERATOR Diffuse large B-cell lymphoma of lymph nodes of multiple regions; High risk medication use 09/12/2023 Telephone Hematology/Oncolog y at [address] [phone] Polly Orellana RN New Medication Request (revlimid) 09/12/2023 Telephone Hematology/Oncolog y at [address] [phone] Adrianne Ramon MD 09/12/2023 Travel 09/06/2023 1:00 PM EDT - 09/06/2023 11:59 PM EDT Hospital Encounter [place] [address] Adrianne Ramon MD Discharge Disposition: Home 09/06/2023 12:59 PM EDT Hospital Encounter [place] [address] Adrianne Ramon MD Diffuse large B-cell lymphoma of lymph nodes of multiple regions; Skin nodule Discharge Disposition: Home 09/06/2023 10:15 AM EDT - 09/06/2023 12:58 PM EDT Hospital Encounter Radiology at [place] [phone] Adrianne Ramon MD Diffuse large B-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; Skin nodule Discharge Disposition: Home 09/06/2023 9:48 AM EDT - 09/06/2023 10:14 AM EDT Hospital Encounter Hematology [place] [address] Diffuse large B-cell lymphoma of lymph nodes of multiple regions; Skin nodule Discharge Disposition: Home 09/06/2023 Travel 08/22/2023 12:30 PM EDT Office Visit Hematology/Oncolog y at [address] [phone] Adrianne Ramon MD Stearns, Diane M, BOX PRINTING MACHINE OPERATOR Diffuse large B-cell lymphoma of lymph nodes [...] Sign Reading Time Taken Comments Blood Pressure 124/60 10/03/2023 9:57 AM EDT Pulse 61 10/03/2023 9:57 AM EDT Temperature 36.2 ??C (97.1 ??F) 10/03/2023 9:57 AM ED T Respiratory Rate 16 10/03/2023 9:57 AM EDT Oxygen Saturation 98% 10/03/2023 9:57 AM EDT Inhaled Oxygen Concentration - - Weight 87.5 kg (193 lb) 10/03/2023 9:57 AM EDT Height 170.1 cm (5' 6.97) 10/03/2023 9:57 AM ED T Body Mass Index 30.26 10/03/2023 9:57 AM EDT Plan of Treatment Upcoming Encounters Date Type Department Care Team (Late st Contact Info) Description 10/11/2023 8:30 AM EDT Infusion Hematology Oncology at [address] [phone] 10/17/2023 1:00 PM EDT TH Visit (TeleHealth) Hematology/Oncology at [address] [phone] Adrianne Ramon MD [facility] HEMATOLOGY [place] [address] Yael Merlos APRN [facility] [place]EMATOLOGY [place] [address] 10/17/2023 1:30 PM EDT Infusion Hematology Oncology at [address] [phone] 11/14/2023 9:30 AM EDT Office Visit Hematology/Oncology at [address] [phone] Adrianne Ramon MD [facility] HEMATOLOGY [place] [address] Yael Merlos APRN [facility] [place]EMATOLOGY [place] [address] 11/14/2023 10:00 AM EDT Infusion Hematology Oncology at [address] [phone] Health Maintenance Due Date Last Done Comments [...] Completed 10/17/2022 Medical Devices Explanted Type Area Poly Area Supervisor Device Identifier Shelf Expiration Date Model / Serial / Lot Port Infusion 8fr Cath Power Injectable Lp 1lum Ct Ti [id number] Implanted:Qty: 1 on 10/17/2022 by Gail Jha PA Explanted:Qty: 1 on 03/29/2023 by Chalo Crews PA IMPLANTS Right: Chest Wall [employer] - [employer]ARD 03/21/2024 [id number] / / [id number] Procedures Procedure Name Priority Date/Time Associated Diagnosis Comments COMMON PULMONARY FUNCTION TEST Routine 10/10/2023 3:24 PM EDT 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 Pre-op testing EKG 12-LEAD Routine 10/10/2023 2:40 PM EDT 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 Pre-op testing LAB SCAN 10/03/2023 12:00 AM EDT LAB SCAN 10/03/2023 12:00 AM EDT LAB SCAN 10/03/2023 12:00 AM EDT LAB SCAN 10/03/2023 12:00 AM EDT LAB SCAN 10/03/2023 12:00 AM EDT EXTERNAL HEMATOLOGY LAB RESULTS Routine 10/03/2023 EXTERNAL CHEMISTRY LAB RESULTS Routine 10/03/2023 LAB SCAN 09/27/2023 12:00 AM EDT LAB [...] candidate Pre-op testing TOXOPLASMA ANTIBODY, IGG Routine 11:14 AM EDT Diffuse large B-cell lymphoma [...] Recently Relevant to Health Maintenance Results * Common Pulmonary Function Test (10/10/2023 [...] PFT FEV1/FVC Pre-BD Z-Score -2.14 COMPAS PFT KAP85-60 Actual Pre-BD 1.11 % COMPAS PFT HGC36-35 Predicted 2 % COMPAS PFT JXJ56-23 Pre-BD % of Predicted 56 % COMPAS PFT ONA62-31 Pre-BD Z-Score -1.17 COMPAS PFT DLCO Hb [...] Givens Jr., MD PFT ORDERABLES COMPAS PFT * External Hematology Lab Results (10/03/2023) Pathologist [facility] [place] WBC - External 16.27 Hemoglobin - External 12.2 Hematocrit - External 36.9 Platelets - External 167 Neutr ABS (ANC) - External 13.8 10/03/2023 Historical Provider EXTERNAL LAB ORDE JOSE * External Chemistry Lab Results (10/03/2023) Pathologist [facility] [place] Blood Urea Nitrogen - External 26 Creatinine - External 1.5 Potassium - External 3.3 AST (SGOT) - External 24 ALT (SGPT) - External 45 Total Bilirubin - External 0.61 Ferritin - External 397 LDH - External 226 10/03/2023 Historical Provider EXTERNAL LAB ORDRegina GARCIA * Scan Doc: Lab (10/03/2023 12:00 AM EDT) Only the most recent of12 resultswithin the time period is included. Narrative 10/03/2023 12:00 AM EDT Ordered by an unspecified provider. Scanning Provider MEDIA MGR SCAN EXT O RDR/RSLT * Blood Donor Serologic Testing (09/21/2023 11:14 AM EDT) Blood VENOUS BLOOD SPECIMEN / Unknown IP Care Team Draw / Unknown 09/21/2023 11:14 AM EDT 09/25/2023 4:30 PM EDT Micha Givens Jr., MD BLOOD BANK LAB ORDER DUONG Performing Organization Address City/[facility]/ZIP Co de Phone Number [facility] [place] [address] * Type and Screen Validity (09/21/2023 11:14 AM EDT) Pathologist [facility] [place] T&S only valid at [facility] LABORATORY Comment:This Type and Screen result is only valid at the [facility] Blood 09/21/2023 11:1 4 AM EDT 09/21/2023 11:31 AM EDT Narrative Resulting Agency Comment Spec In Lab Micha Givens Jr., MD BLOOD BANK LAB ORDER DUONG [facility] [place] [address] * Hemoglobin S Screen (09/21/2023 11:14 AM EDT) HGB S Screen Screen Negative Screen Negative [facility] Blood 09/21/2023 11:1 4 AM EDT 09/21/2023 11:30 AM EDT Narrative Resulting Agency Comment Spec In Lab Micha Givens Jr., MD HEMATOLOGY ORDERABLE S [facility] [place] [address] * ABORH Recheck Status (09/21/2023 11:14 AM EDT) ABORH Recheck Order Order Placed [facility] ABORH Type Recheck not performed [facility] Blood 09/21/2023 11:1 4 AM EDT 09/21/2023 11:31 AM EDT Narrative Resulting Agency Comment Spec In Lab Micha Givens Jr., MD BLOOD BANK LAB ORDER DUONG [facility] [place] [address] * (ABNORMAL) CRP, acute inflammation (09/21/2023 11:14 AM EDT) C-Reactive Protein 52.8(H) <=4.9 mg/L [facility] Blood 09/21/2023 11:1 4 AM EDT 09/21/2023 11:30 AM EDT Narrative Resulting Agency Comment Spec In Lab Micha Givens Jr., MD CHEMISTRY ORDERABLES Performing Organization Address City/[facility]/ZIP Co de Phone Number [facility] [place] [address] * PSA Screen (09/21/2023 11:14 AM EDT) PSA Screen 0.03 0.00 - 4.00 ng/mL [facility] Comment: PLEASE NOTE: The above reference interval is intended for healthy males with an intact prostate. Values within this reference interval may indicate recurrence in men who have undergone radical prostatectomy. This result was generated using a [employer] immunoassay. ??Results obtained from other methods or manufacturers cannot be used interchangeably with this method. Blood 09/21/2023 11:1 4 AM EDT 09/21/2023 11:30 AM EDT Narrative Resulting Agency Comment Spec In Lab Micha Givens Jr., MD CHEMISTRY ORDERABLES Performing Organization Address [facility] Co de Phone Number [facility] [place] [address] * Calcium, Ionized, Serum (09/21/2023 11:14 AM EDT) Ionized Calcium 1.25 1.15 - 1.33 mmol/L [facility] Comment: Note: Total bilirubin higher than 20 mg/dL may lead to falsely low ionized calcium. This test has not been cleared by the [place] FDA. Performance characteristics of this test were determined by [facility] in accordance with CLIA requirements. This laboratory is qualified under CLIA to perform high-complexity testing. Blood 09/21/2023 11:1 4 AM EDT 09/21/2023 11:30 AM EDT Narrative Resulting Agency Comment Spec In Lab Micha Givens Jr., MD CHEMISTRY ORDERABLES Performing Organization Address City/[facility] Co de Phone Number [facility] [place] [address] * (ABNORMAL) Hemogram (09/21/2023 11:14 AM EDT) Only the most recent of2 resultswithin the time period is included. White Blood Cell 7.3 4.0 - 9.5 x10(3)/mc L [facility] Red Blood Cell 4.20(L) 4.58 - 5.54 x10(6)/mc L [facility] Hemoglobin 12.3(L) 13.7 - 16.5 g/dL [facility] Hematocrit 38.4(L) 40.5 - 48.5 % [facility] Mean Cell Volume 91.4 82.9 - 93.1 fL [facility] Mean Cell Hemoglobin 29.3 27.5 - 32.1 pg [facility] Mean Cell Hemoglobin Concentration 32.0 32.0 - 35.7 g/dL [facility] Platelet 152 145 - 357 x10(3)/mc L [facility] RDW Standard Deviation 48.4(H) 36.0 - 45.0 fL [facility] RDW coefficient of variation 14.5(H) 11.4 - 13.8 % [facility] Mean Platelet Volume 11.5 7.6 - 12.9 fL [facility] NRBC% auto 0.0 % [facility] NRBC Absolute 0.000 0.000 - 0.000 x10(3)/ L [facility] Blood 09/21/2023 11:1 4 AM EDT 09/21/2023 11:30 AM EDT Narrative Resulting Agency Comment Spec In Lab Micha Givens Jr., MD HEMATOLOGY ORDERABLE S [facility] [place] [address] * (ABNORMAL) Differential, Automated (09/21/2023 11:14 AM EDT) Only the most recent of2 resultswithin the time period is included. Neutrophil % 90.8 % [facility] Neutrophil Absolute 6.59(H) 1.70 - 6.10 x10(3)/ L [facility] Lymph % 5.1 % [facility] Lymphocytes Abs 0.4(L) 0.9 - 3.2 x10(3)/ L [facility] Monocyte % 3.0 % [facility] Monocyte Abs 0.2(L) 0.3 - 0.9 x10(3)/ L [facility] Eos % 0.4 % [facility] Eosinophils Abs 0.0 0.0 - 0.4 x10(3)/[facility] LABORATORY Basophil % 0.1 % [facility] Baso Absolute 0.0 0.0 - 0.1 x10(3)/[facility] LABORATORY Immature Gran % 0.60 % [facility] Comment: Immature granulocytes(IG's)percentage and absolute count will include metamyelocytes, myelocytes, and promyelocytes. Blood smears from CBCs yielding IG's will be scanned manually for concordance. If this scan disagrees with the automated IG or if promyelocytes are noted, a manual differential will be performed. Immature Gran Absolute 0.04 0.00 - 0.04 x10(3)/ L [facility] Blood 09/21/2023 11:1 4 AM EDT 09/21/2023 11:30 AM EDT Narrative Resulting Agency Comment Spec In Lab Micha Givens Jr., MD HEMATOLOGY ORDERABLE S [facility] [place] [address] * HSV 1 and 2 IgG Antibodies (09/21/2023 11:14 AM EDT) HSV Type 1 Ab, IgG Negative Negative [facility] HSV Type 2 Ab, IgG Negative Negative [facility] Blood 09/21/2023 11:1 4 AM EDT 09/21/2023 1:04 PM EDT Narrative Resulting Agency Comment Spec In Lab Micha Givens Jr., MD IMMUNOLOGY ORDERABLE S Performing Organization Address City/[facility]/ZIP Co de Phone Number [facility] [place] [address] * (ABNORMAL) Al[place]-Pickett Virus Antibodies (09/21/2023 11:14 AM EDT) EBV (VCA) IgG Ab Positive(A) Negative [facility] EBV (VCA) IgM Ab Negative Negative [facility] EBNA Antibodies Positive(A) Negative MA [facility] EBV Interpretation Past EBV infection. [facility] Comment: In most populations, [...] MD IMMUNOLOGY ORDERABLE S Performing Organization Address [facility]/ZIP Co de Phone Number [facility] [place] [address] * CMV Antibody, IgM (09/21/2023 11:14 AM EDT) CMV IgM Negative Negative [facility] Blood 09/21/2023 11:1 4 AM EDT 09/21/2023 1:04 PM EDT Narrative Resulting Agency Comment Spec In Lab Micha Givens Jr., MD IMMUNOLOGY ORDERABLE S [facility] [place] [address] * (ABNORMAL) Iron and TIBC (09/21/2023 11:14 AM EDT) Iron 39(L) 45 - 160 mcg/dL [facility] TIBC 255 250 - 450 mcg/dL [facility] Iron Saturation 15(L) 20 - 50 % [facility] Blood 09/21/2023 11:1 4 AM EDT 09/21/2023 11:30 AM EDT Narrative Resulting Agency Comment Spec In Lab Micha Givens Jr., MD CHEMISTRY ORDERABLES Performing Organization Address City/[facility]/ZIP Co de Phone Number [facility] [place] [address] * Toxoplasma Antibody, IgM (09/21/2023 11:14 AM EDT) Toxoplasma Antibody IgM Negative Negative [facility] Blood 09/21/2023 11:1 4 AM EDT 09/21/2023 1:04 PM EDT Narrative Resulting Agency Comment Spec In Lab Micha Givens Jr., MD IMMUNOLOGY ORDERABLE S Performing Organization Address City/[facility]/ZIP Co de Phone Number [facility] [place] [address] * Toxoplasma Antibody, IgG (09/21/2023 11:14 AM EDT) Toxoplasma Antibody IgG Negative Negative [facility] Blood 09/21/2023 11:1 4 AM EDT 09/21/2023 1:04 PM EDT Narrative Resulting Agency Comment Spec In Lab Micha Givens Jr., MD IMMUNOLOGY ORDERABLE S Performing Organization Address City/[facility]/ZIP Co de Phone Number [facility] [place] [address] * CMV Antibody, IgG (09/21/2023 11:14 AM EDT) CMV IgG Negative Negative [facility] Blood 09/21/2023 11:1 4 AM EDT 09/21/2023 1:04 PM EDT Narrative Resulting Agency Comment Spec In Lab Micha Givens Jr., MD IMMUNOLOGY ORDERABLE S [facility] [place] [address] * Type and screen ([facility]MARCELINA) (09/21/2023 11:14 AM EDT) Pathologist [facility] [place] ABORH Type O NEGATIVE [facility] Patient BB History Not Found [facility] Expires at [id number] on: 09/24/2023 [facility] Ab Screen Interp Negative [facility] Blood 09/21/2023 11:1 4 AM EDT 09/21/2023 11:14 AM EDT Narrative [facility] - 09/21/2023 11:14 AM EDT This Type and Screen result is only valid at the [facility] Resulting Agency Comment Spec In Lab Micha Givens Jr., MD BLOOD BANK LAB ORDER DUONG [facility] [place] [address] * Direct antiglobulin test (09/21/2023 11:14 AM EDT) WILLIAN Poly Negative [facility] 09/21/2023 11:1 4 AM EDT 09/21/2023 11:14 AM EDT Micha Givens Jr., MD BLOOD BANK LAB ORDER DUONG [facility] [place] [address] * Varicella zoster Antibody, IgG (09/21/2023 11:14 AM EDT) [facility] Varicella Zoster Antibody IgG Positive Positive [facility] Comment: A positive result for this assay is considered to be an indicator of positive immune status. Blood 09/21/2023 11:1 4 AM EDT 09/21/2023 1:04 PM EDT Narrative Resulting Agency Comment Spec In Lab Micha Givens Jr., MD IMMUNOLOGY ORDERABLE S Performing Organization Address City/[facility]/ZIP Co de Phone Number [facility] [place] [address] * Uric acid (09/21/2023 11:14 AM EDT) [facility] Uric Acid 5.1 3.5 - 8.5 mg/dL [facility] Blood 09/21/2023 11:1 4 AM EDT 09/21/2023 11:30 AM EDT Narrative Resulting Agency Comment Spec In Lab Micha Givens Jr., MD CHEMISTRY ORDERABLES Performing Organization Address City/[facility] Co de Phone Number [facility] [place] [address] * Phosphorus (09/21/2023 11:14 AM EDT) [facility] Phosphorus 2.9 2.5 - 4.5 mg/dL [facility] Blood 09/21/2023 11:1 4 AM EDT 09/21/2023 11:30 AM EDT Narrative Resulting Agency Comment Spec In Lab Micha Givens Jr., MD CHEMISTRY ORDERABLES Performing Organization Address City/[facility] Co de Phone Number [facility] [place] [address] * Magnesium (09/21/2023 11:14 AM EDT) [facility] Magnesium 0.80 0.69 - 1.07 mmol/L [facility] Blood 09/21/2023 11:1 4 AM EDT 09/21/2023 11:30 AM EDT Narrative Resulting Agency Comment Spec In Lab Micha Givens Jr., MD CHEMISTRY ORDERABLES Performing Organization Address [facility] Co de Phone Number [facility] [place] [address] * (ABNORMAL) Lactate Dehydrogenase (09/21/2023 11:14 AM EDT) Only the most recent of2 resultswithin the time period is included. Lactate Dehydrogenase 426(H) 110 - 220 unit/L [facility] Blood 09/21/2023 11:1 4 AM EDT 09/21/2023 11:30 AM EDT Narrative Resulting Agency Comment Spec In Lab Micha Givens Jr., MD CHEMISTRY ORDERABLES Performing Organization Address [facility] de Phone Number [facility] [place] [address] * Ferritin (09/21/2023 11:14 AM EDT) Ferritin 393 31 - 409 ng/mL [facility] Comment: Please note that as of 01/24/2023, the reference intervals for Ferritin have been updated. Blood 09/21/2023 11:1 4 AM EDT 09/21/2023 11:30 AM EDT Narrative Resulting Agency Comment Spec In Lab Micha Givens Jr., MD CHEMISTRY ORDERABLES Performing Organization Address [facility] Co de Phone Number [facility] [place] [address] * (ABNORMAL) Comprehensive metabolic panel (non-fasting) (09/21/2023 11:14 AM EDT) Only the most recent of3 resultswithin the time period is included. Glucose 326(H) 65 - 199 mg/dL [facility] Comment:Diabetes: >=200 mg/d L plus symptoms Blood Urea Nitrogen 26(H) 10 - 20 mg/dL [facility] Creatinine 1.16 0.80 - 1.50 mg/dL [facility] Sodium 138 135 - 145 mmol/L [facility] Potassium 4.0 3.5 - 5.0 mmol/L [facility] Comment: Please note: ??Patients with WBC >100,000 may have falsely elevated Potassium levels. ??For accurate Potassium quantification in these patients send serum separator tube (gold top) for subsequent determinations. ??Contact the Clinical Chemistry Laboratory if there are any questions. Chloride 103 98 - 107 mmol/L [facility] Carbon Dioxide 21(L) 22 - 31 mmol/L [facility] Anion Gap 14 5 - 15 mmol/L [facility] Calcium 9.5 8.5 - 10.5 mg/dL [facility] Protein, Total 6.3 6.1 - 8.0 g/dL [facility] Albumin 3.9 3.2 - 5.2 g/dL [facility] Aspartate Aminotransferase 54(H) 0 - 39 unit/L [facility] Alanine Aminotransferase 72(H) 0 - 55 unit/L [facility] Alkaline Phosphatase 202(H) 40 - 130 unit/L [facility] Bilirubin, Total 0.4 0.2 - 1.3 mg/dL [facility] Est Glomerular Filtration Rate 66 >=60 mL/min/1. 73 m?? [facility] Comment: This patient's estimated [...] Jr., MD CHEMISTRY ORDERABLES Performing Organization Address [facility]/ZIP Co de Phone Number [facility] [place] [address] * Urinalysis with reflex Culture (09/21/2023 11:11 AM EDT) Glucose, Urine Dipstick Negative Negative mg/dL [facility] Protein, Urine Dipstick Negative Negative mg/dL [facility] Bilirubin, Urine Dipstick Negative Negative mg/dL [facility] Comment: Clinical correlation required for positive Urine Bilirubin results as false positive may occur with some drugs and drug related products. If a false positive is suspected a serum total bilirubin should be considered if clinically indicated. Urobilinogen, Urine Dipstick Normal Normal mg/dL [facility] pH, Urn (dipstick) 6.5 5.0 - 8.0 [facility] Blood, Urine Dipstick Negative Negative mg/dL [facility] Ketone, Urine Dipstick Negative Negative mg/dL [facility] Nitrite, Urine Dipstick Negative Negative [facility] Leukocytes, Urine Dipstick Negative Negative [facility] Appearance, Urine Dipstick Clear Clear [facility] Specific [place] Urine Automated 1.009 1.005 - 1.030 [facility] Color, Urine Dipstick Yellow Yellow [facility] Reflex to Culture No [facility] Clean Catch Urine 09/21/2023 11:11 AM EDT 09/21/2023 11:33 AM EDT Narrative Resulting Agency Comment Spec In Lab Micha Givens Jr., MD URINE ORDERABLES Performing Organization Address City/[facility]/ZIP Co de Phone Number [facility] [place] [address] * Scan Doc: Echo (09/17/2023 12:00 AM EDT) Anatomical Region Laterality Modality Cardiac Other Narrative 09/17/2023 12:00 AM EDT Ordered by an unspecified provider. Scanning Provider MEDIA MGR SCAN EXT O RDR/RSLT * NM PET CT Standard Plus Extremities and Head (09/06/2023 2:45 PM EDT) WORKSTATION ID [id number] [facility] Anatomical Region Laterality Modality Positron Emissio n [...] who have questions please contact the health senior care manager that requested your imaging first. ? Electronically signed by: Rohan Henley MD, [facility] ([phone]), at 09/10/2023 11:18 AM Narrative 09/10/2023 11:18 [...] unspecified. TECHNIQUE: Procedure: Following IV injection of 85-jvyvbw-3-deoxyglucose (FDG) a standard uptake of approximately 60 [...] unspecified. TECHNIQUE: Procedure: Following IV injection of 64-mfdsru-9-deoxyglucose(FDG) a standard uptake of approximately 60 minutes, [...] patients who have questions please contactthe health senior care manager that requested your imaging first. Electronically signed by: Rohan Henley MD, [facility]([phone]), at 09/10/2023 11:18 AM Adrianne Ramon MD IMG PET ORDERABL ES * POCT Glucose (09/06/2023 1:06 PM EDT) Only the most recent of2 resultswithin the time period is included. Glucose, POC 98 65 - 199 mg/dL [facility] Comment: Supplemental ranges: <140 mg/dL before meals <180 mg/dL all other times of the day Blood 09/06/2023 1:06 PM EDT 09/06/2023 1:06 PM EDT Adrianne Ramon MD POINT OF CARE TE ST ORDERABLES [facility] [place] [address] * IR Biopsy Lymph Node (Chest/Abdomen/Pelvis) (09/06/2023 [...] period is included. Immunophenotyping Flow See Comment [facility] Comment: When completed by the Pathologist, the Flow Cytometry Report ([id number]) will display under the Pathology Results section within eDH. Other 09/06/2023 12:2 8 PM EDT 09/06/2023 12:47 PM EDT Narrative Resulting Agency Comment Spec In Lab Micha Pearl MD HEMATOLOGY ORDERABLE S [facility] [place] [address] * Flow Cytometry Report (09/06/2023 12:28 PM EDT) Only the most recent of2 resultswithin the time period is included. Flow Cytometry Report [id number] ? Location: 3ZV The signing pathologist has (i) examined the relevant preparation(s) for the specimen(s) and (ii) rendered or confirmed the diagnosis(es). . ?Flow Cytometry DIAGNOSIS ? 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 See comment. Electronically signed by: ?Filemon Cortez MD Verified: ??09/10/2023 15:05 ??Hematopathologist Performed at: ??-[facility] [place], [place] [address] Computer Analyst: Katherine Lopez MD, FCAP, ??CLIA Certificate: [id number] DISCUSSION The T-lymphocytes , B- lymphocytes and [...] by the Clinical Flow Cytometry Laboratory at [facility]. It has not been cleared or approved [...] high complexity clinical laboratory testing. SPECIMEN PROCESSING [id number] Cells for immunophenotypic analysis were derived from LEFT AUX LYMPH NODE. CD45 vs side scatter gating was utilized to identify a LYMPHOID analysis region that comprises approximately 95-97% of all cells. The following markers were assessed: CD2, CD3, CD4, CD5, CD7, CD8, CD10, CD19, CD20, CD23, CD38, CD45, CD56, FMC-7, kappa light chain, and lambda light chain. CLINICAL INFORMATION dlbcl [facility] 09/06/2023 12:2 8 PM EDT Micha Pearl MD PATHOLOGY/CYTOLOGY O RDERAANA ROSA [facility] [place] [address] * chromo report acquired (09/06/2023 11:35 AM EDT) Cytogenetics Acquired Report Final Report ? [id number] Specimen Type: Fixed Tissue Specimen Condition: 1 [...] using dual-color, break-apart probes for MYC/8q24 rearrangement ([employer] shows 0% of 100 cells with a MYC rearrangement signal pattern. This is within acceptable reference limits (0-6.0%). Thus, there is no evidence for MYC/8q24 gene rearrangement. Interphase FISH analysis using dual-color, dual-fusion probes for MYC-IGH/t(8;14)(q2 4;q32) ([employer] shows 0% of 100 cells with [...] dual-color break-apart probes for BCL2/18q21 rearrangement ([employer] shows 0% of 100 cells with [...] its performance characteristics were determined by the [facility] ([facility] Cytogenetics Laboratory as required by [...] the test? s accuracy and precision. The [facility] Cytogenetics Laboratory is certified under the CLIA? 88 as qualified to perform high complexity clinical laboratory testing. Chromosome alterations outside the regions complementary to these DNA FISH probes will not be detected. 09.20.23 (Electronic Signature) Verified By: Channing Ph.D., FAC, Tommy A Clinical Assistive Technology Specialist/Mol ecular Candy Department Manager [facility] 09/06/2023 11:3 5 AM EDT 09/11/2023 8:57 AM EDT James Champion DO HEMATOLOGY ORDERABLE S Performing Organization Address City/State/[facility] Co de Phone Number [facility] [place] [address] * (ABNORMAL) Surgical Pathology Report (09/06/2023 11:35 AM EDT) Surgical Pathology Report [id number] ? Location: [facility] The signing pathologist has (i) examined [...] MD Verified: ??09/10/2023 18:38 ??Hematopathologist Performed at: ??-[facility] [place], [place] [address] Computer Analyst: Katherine Lopez MD, FCAP, ??CLIA Certificate: [id number] SYNOPTIC THIS RESULT REQUIRES PHYSICIAN/A.P.P. FOLLOW UP [...] lymphoid neoplasms . Blood . 2016. 127 (20):[id number]. Rafael CP et al . Blood 103:275-282 [...] submitted in 2 cassettes labeled B1-B2. ??CCP(A) [facility] 09/06/2023 11:3 5 AM EDT James Champion DO PATHOLOGY/CYTOLOGY O RDERABLES Performing Organization Address [facility]/ZIP Co de Phone Number [facility] [place] [address] * Anaerobic Culture (09/06/2023 11:25 AM EDT) Anaerobic Culture No anaerobic organisms isolated [facility] Arm 09/06/2023 11:2 5 AM EDT 09/06/2023 12:21 PM EDT Comment:Left Arm Collection versus mass Narrative Resulting Agency Comment Spec In Lab James Champion DO MICROBIOLOGY - GENER AL ORDERABLES Performing Organization Address City/[facility]/ZIP Co de Phone Number [facility] [place] [address] * Calcofluor White Stain (09/06/2023 11:25 AM EDT) Calcofluor Stain Calcofluor White Preparation: Negative [facility] Other 09/06/2023 11:2 5 AM EDT 09/06/2023 12:21 PM EDT Comment:Left Arm Collection versus Mass Narrative Resulting Agency Comment Spec In Lab James Champion DO MICROBIOLOGY - GENER AL ORDERABLES Performing Organization Address [facility]/ZIP Co de Phone Number [facility] [place] [address] * Tissue culture (09/06/2023 11:25 AM EDT) Tissue Culture No growth [facility] Gram Stain Few Neutrophils seen No microorganisms seen. [facility] Arm 09/06/2023 11:2 5 AM EDT 09/06/2023 12:21 PM EDT Comment:Left Arm Collection versus mass Narrative Resulting Agency Comment Spec In Lab James Champion DO MICROBIOLOGY - GENER AL ORDERABLES Performing Organization Address [facility] [place] [address] * Fungus culture (09/06/2023 11:25 AM EDT) Fungus Culture No Fungus isolated [facility] Other 09/06/2023 11:2 5 AM EDT 09/06/2023 12:21 PM EDT Comment:Left Arm Collection versus Mass Narrative Resulting Agency Comment Spec In Lab James Champion DO MICROBIOLOGY - GENER AL ORDERABLES Performing Organization Address [facility] [place] [address] * Specimen to Pathology (09/06/2023 11:20 AM EDT) Only the most recent of2 resultswithin the time period is included. AP Specimen 09/06/2023 11:2 0 AM EDT 09/06/2023 11:20 AM EDT Narrative [facility] - 09/06/2023 11:20 AM EDT Specimen requisition ordered. ??Separate Pathology report to follow James Champion DO PATHOLOGY/CYTOLOGY O RDERAANA ROSA Performing Organization Address [facility] Co de Phone Number [facility] [place] [address] * Cytopathology Non-Gynecological (09/06/2023 10:41 AM EDT) AP Specimen 09/06/2023 10:4 1 AM EDT 09/06/2023 10:41 AM EDT Narrative [facility] - 09/06/2023 10:41 AM EDT Specimen requisition ordered. ??Separate Pathology report to follow Micha Pearl MD PATHOLOGY/CYTOLOGY O RDERABLES [facility] [place] [address] * Blood culture (09/06/2023 10:12 AM EDT) Blood Culture No growth at 5 days. [facility] Blood ANTECUBITAL REGION STRUCTURE / Unknown 09/06/2023 10:12 AM EDT 09/06/2023 10:31 AM EDT Comment:Peripheral culture Narrative Resulting Agency Comment Spec In Lab Adrianne Ramon MD MICROBIOLOGY - B LOOD ORDERABLES Performing Organization Address City/[facility]/ZIP Co de Phone Number [facility] [place] [address] * CBC (with Diff) (08/22/2023) White Blood Cell 8.12 Hemoglobin 13.2 Hematocrit 38.4 Platelet 199 ANC 6.02 Blood 08/22/2023 Historical Provider HEMATOLOGY ORDERA BLES * Hepatitis C Antibody (10/17/2022 11:45 AM EDT) Pathologist [facility] Hepatitis C Antibody Negative Negative [facility] Blood 10/17/2022 11:4 5 AM EDT 10/17/2022 12:08 PM EDT Narrative Resulting Agency Comment Spec In Lab Adrianne Ramon MD CHEMISTRY ORDERA BLES [facility] [place] [address] from Last 3 Months or Most Recently Relevant to Health Maintenance Advance Directives Documents on File Type Date Recorded Patient Cafe Team Member Expl anation POLST/COLST (Order for Life Sustaining [...] Status decision made by: Patient Care Teams Balloon Tester Relationship Specialty Start Date End Date Frederick Meade MD [address] [place], [place] [id number] PCP - General Family Medicine 11/29/17
--- OUTSIDE RECORDS SUMMARY | 2023-10-11 03:38 | XMS_ITS | Encounter Summary ---
Author Organization [facility] [place] [place] [address] Care Team Providers Care Education And Outreach Coordinator Name Role Phone Frederick Meade MD Primary Care Provider [phone] Encounter Details Date Type Department Care Team (Latest Contact Info) Description 09/21/2023 10:51 AM EDT - 09/21/2023 11:59 PM EDT Hospital Encounter [place]ology [place] [address] Diffuse large B-cell lymphoma of lymph nodes [...] TEST DAILY 4 03/11/2018 ONETOUCH ULTRASOFT LANCETS [facility] USE TO TEST DAILY 2 06/07/2018 colchicine [...] Indications: progressive diffuse large B-cell lymphoma 09/12/2023 10/10/2023 documented as of this encounter Plan of Treatment Upcoming Encounters Date Type Department Care Team (Late st Contact Info) Description 10/11/2023 8:30 AM EDT Infusion Hematology Oncology at [address] [phone] 10/17/2023 1:00 PM EDT TH Visit (TeleHealth) Hematology/Oncology at [address] [phone] Adrianne Ramon MD [facility] [place] [address] Yael Merlos APRN [facility] [place] [address] 10/17/2023 1:30 PM EDT Infusion Hematology Oncology at [address] [phone] 11/14/2023 9:30 AM EDT Office Visit Hematology/Oncology at [address] [phone] Adrianne Ramon MD [facility] [place] [address] Yael Merlos SYSTEMS SOFTWARE ENGINEER [facility] [place] [address] 11/14/2023 10:00 AM EDT Infusion Hematology Oncology at [address] [phone] Pending Results Name Type Priority Associated Diagnoses [...] nodes of multiple regions TYPE AND SCREEN ([facility]/CGP/MARCELINA) Routine 09/21/2023 11:14 AM EDT Diffuse large [...] BANK LAB ORDER DUONG Performing Organization Address City/[facility]/ZIP Co de Phone Number [facility] [place] [address] * Direct antiglobulin test (09/21/2023 11:14 AM EDT) WILLIAN Poly Negative [facility] 09/21/2023 11:1 4 AM EDT 09/21/2023 11:14 AM EDT Micha Givens Jr., MD BLOOD BANK LAB ORDER DUONG Performing Organization Address [facility] Co de Phone Number [facility] [place] [address] * Type and Screen Validity (09/21/2023 11:14 AM EDT) Pathologist [facility] T&S only valid at [facility] LABORATORY Comment:This Type and Screen result is only valid at the [facility] Hospital Blood 09/21/2023 11:1 4 AM EDT 09/21/2023 11:31 AM EDT Narrative Resulting Agency Comment Spec In Lab Micha Gviens Jr., MD BLOOD BANK LAB ORDER DUONG Performing Organization Address City/[facility]/ZIP Co de Phone Number [facility] [place] [address] * ABORH Recheck Status (09/21/2023 11:14 AM EDT) [facility] ABORH Recheck Order Order Placed [facility] ABORH Type Recheck not performed [facility] Blood 09/21/2023 11:1 4 AM EDT 09/21/2023 11:31 AM EDT Narrative Resulting Agency Comment Spec In Lab Micha Givens Jr., MD BLOOD BANK LAB ORDER DUONG Performing Organization Address City/[facility]/ZIP Co de Phone Number [facility] [place] [address] * (ABNORMAL) Differential, Automated (09/21/2023 11:14 AM EDT) Neutrophil % 90.8 % [facility] Neutrophil Absolute 6.59(H) 1.70 - 6.10 x10(3)/mc L [facility] Lymph % 5.1 % [facility] Lymphocytes Abs 0.4(L) 0.9 - 3.2 x10(3)/ L [facility] Monocyte % 3.0 % [facility] Monocyte Abs 0.2(L) 0.3 - 0.9 x10(3)/ L [facility] Eos % 0.4 % [facility] Eosinophils Abs 0.0 0.0 - 0.4 x10(3)/ L [facility] Basophil % 0.1 % [facility] Baso Absolute 0.0 0.0 - 0.1 x10(3)/ L [facility] Immature Gran % 0.60 % [facility] Comment: Immature granulocytes(IG's)percentage and absolute count will include metamyelocytes, myelocytes, and promyelocytes. Blood smears from CBCs yielding IG's will be scanned manually for concordance. If this scan disagrees with the automated IG or if promyelocytes are noted, a manual differential will be performed. Immature Gran Absolute 0.04 0.00 - 0.04 x10(3)/mc L [facility] Blood 09/21/2023 11:1 4 AM EDT 09/21/2023 11:30 AM EDT Narrative Resulting Agency Comment Spec In Lab Micha Gievns Jr., MD HEMATOLOGY ORDERABLE S Performing Organization Address City/[facility]/ZIP Co de Phone Number [facility] [place] [address] * (ABNORMAL) Hemogram (09/21/2023 11:14 AM EDT) White Blood Cell 7.3 4.0 - 9.5 x10(3)/[facility] LABORATORY Red Blood Cell 4.20(L) 4.58 - 5.54 x10(6)/[facility] LABORATORY Hemoglobin 12.3(L) 13.7 - 16.5 g/dL [facility] Hematocrit 38.4(L) 40.5 - 48.5 % [facility] Mean Cell Volume 91.4 82.9 - 93.1 fL [facility] Mean Cell Hemoglobin 29.3 27.5 - 32.1 pg [facility] Mean Cell Hemoglobin Concentration 32.0 32.0 - 35.7 g/dL [facility] Platelet 152 145 - 357 x10(3)/[facility] LABORATORY RDW Standard Deviation 48.4(H) 36.0 - 45.0 [facility] LABORATORY RDW coefficient of variation 14.5(H) 11.4 - 13.8 % [facility] Mean Platelet Volume 11.5 7.6 - 12.9 fL [facility] NRBC% auto 0.0 % [facility] NRBC Absolute 0.000 0.000 - 0.000 x10(3)/[facility] LABORATORY Blood 09/21/2023 11:1 4 AM EDT 09/21/2023 11:30 AM EDT Narrative Resulting Agency Comment Spec In Lab Micha Givens Jr., MD HEMATOLOGY ORDERABLE S [facility] [place] [address] * Hemoglobin S Screen (09/21/2023 11:14 AM EDT) HGB S Screen Screen Negative Screen Negative [facility] Blood 09/21/2023 11:1 4 AM EDT 09/21/2023 11:30 AM EDT Narrative Resulting Agency Comment Spec In Lab Micha Givens Jr., MD HEMATOLOGY ORDERABLE S [facility] [place] [address] * Type and screen ([facility]P/MARCELINA) (09/21/2023 11:14 AM EDT) ABORH Type O NEGATIVE [facility] Patient BB History Not Found [facility] Expires at [id number] on: 09/24/2023 [facility] Ab Screen Interp Negative [facility] Blood 09/21/2023 11:1 4 AM EDT 09/21/2023 11:14 AM EDT Narrative [facility] - 09/21/2023 11:14 AM EDT This Type and Screen result is only valid at the [facility] Hospital Resulting Agency Comment Spec In Lab Micha Givens Jr., MD BLOOD BANK LAB ORDER DUONG Performing Organization Address [facility]/ZIP Co de Phone Number [facility] [place] [address] * (ABNORMAL) Iron and TIBC (09/21/2023 11:14 AM EDT) Iron 39(L) 45 - 160 mcg/dL [facility] TIBC 255 250 - 450 mcg/dL [facility] Iron Saturation 15(L) 20 - 50 % [facility] Blood 09/21/2023 11:1 4 AM EDT 09/21/2023 11:30 AM EDT Narrative Resulting Agency Comment Spec In Lab Micha Givens Jr., MD CHEMISTRY ORDERABLES Performing Organization Address City/[facility]/ZIP Co de Phone Number [facility] [place] [address] * (ABNORMAL) CRP, acute inflammation (09/21/2023 11:14 AM EDT) Pathologist [facility] C-Reactive Protein 52.8(H) <=4.9 mg/L [facility] Blood 09/21/2023 11:1 4 AM EDT 09/21/2023 11:30 AM EDT Narrative Resulting Agency Comment Spec In Lab Micha Givens Jr., MD CHEMISTRY ORDERABLES [facility] [place] [address] * Ferritin (09/21/2023 11:14 AM EDT) [facility] Ferritin 393 31 - 409 ng/mL [facility] Comment: Please note that as of 01/24/2023, the reference intervals for Ferritin have been updated. Blood 09/21/2023 11:1 4 AM EDT 09/21/2023 11:30 AM EDT Narrative Resulting Agency Comment Spec In Lab Micha Givens Jr., MD CHEMISTRY ORDERABLES Performing Organization Address City/[facility]/ZIP Co de Phone Number [facility] [place] [address] * Uric acid (09/21/2023 11:14 AM EDT) [facility] Uric Acid 5.1 3.5 - 8.5 mg/dL [facility] Blood 09/21/2023 11:1 4 AM EDT 09/21/2023 11:30 AM EDT Narrative Resulting Agency Comment Spec In Lab Micha Givens Jr., MD CHEMISTRY ORDERABLES Performing Organization Address City/[facility]/ZIP Co de Phone Number [facility] [place] [address] * Calcium, Ionized, Serum (09/21/2023 11:14 AM EDT) Pathologist [facility] Ionized Calcium 1.25 1.15 - 1.33 mmol/L [facility] Comment: Note: Total bilirubin higher than 20 mg/dL may lead to falsely low ionized calcium. This test has not been cleared by the [place] FDA. Performance characteristics of this test were determined by [facility] in accordance with CLIA requirements. This laboratory is qualified under CLIA to perform high-complexity testing. Blood 09/21/2023 11:1 4 AM EDT 09/21/2023 11:30 AM EDT Narrative Resulting Agency Comment Spec In Lab Micha Givens Jr., MD CHEMISTRY ORDERABLES Performing Organization Address [facility] Co de Phone Number [facility] [place] [address] * Toxoplasma Antibody, IgM (09/21/2023 11:14 AM EDT) Toxoplasma Antibody IgM Negative Negative [facility] Blood 09/21/2023 11:1 4 AM EDT 09/21/2023 1:04 PM EDT Narrative Resulting Agency Comment Spec In Lab Micha Givens Jr., MD IMMUNOLOGY ORDERABLE S Performing Organization Address City/[facility] Co de Phone Number [facility] [place] [address] * Toxoplasma Antibody, IgG (09/21/2023 11:14 AM EDT) Toxoplasma Antibody IgG Negative Negative [facility] Blood 09/21/2023 11:1 4 AM EDT 09/21/2023 1:04 PM EDT Narrative Resulting Agency Comment Spec In Lab Micha Givens Jr., MD IMMUNOLOGY ORDERABLE S Performing Organization Address [facility] Co de Phone Number [facility] [place] [address] * PSA Screen (09/21/2023 11:14 AM EDT) Pathologist [facility] PSA Screen 0.03 0.00 - 4.00 ng/mL [facility] Comment: PLEASE NOTE: The [...] Jr., MD CHEMISTRY ORDERABLES Performing Organization Address City/[facility]/ZIP Co de Phone Number [facility] [place] [address] * Phosphorus (09/21/2023 11:14 AM EDT) Phosphorus 2.9 2.5 - 4.5 mg/dL [facility] Blood 09/21/2023 11:1 4 AM EDT 09/21/2023 11:30 AM EDT Narrative Resulting Agency Comment Spec In Lab Micha Givens Jr., MD CHEMISTRY ORDERABLES Performing Organization Address City/[facility]/ZIP Co de Phone Number [facility] [place] [address] * Magnesium (09/21/2023 11:14 AM EDT) Magnesium 0.80 0.69 - 1.07 mmol/L [facility] Blood 09/21/2023 11:1 4 AM EDT 09/21/2023 11:30 AM EDT Narrative Resulting Agency Comment Spec In Lab Micha Givens Jr., MD CHEMISTRY ORDERABLES Performing Organization Address City/[facility] Co de Phone Number [facility] [place] [address] * Varicella zoster Antibody, IgG (09/21/2023 11:14 AM EDT) Varicella Zoster Antibody IgG Positive Positive [facility] Comment: A positive result for this assay is considered to be an indicator of positive immune status. Blood 09/21/2023 11:1 4 AM EDT 09/21/2023 1:04 PM EDT Narrative Resulting Agency Comment Spec In Lab Micha Givens Jr., MD IMMUNOLOGY ORDERABLE S Performing Organization Address [facility] Co de Phone Number [facility] [place] [address] * HSV 1 and 2 IgG Antibodies (09/21/2023 11:14 AM EDT) HSV Type 1 Ab, IgG Negative Negative [facility] HSV Type 2 Ab, IgG Negative Negative [facility] Blood 09/21/2023 11:1 4 AM EDT 09/21/2023 1:04 PM EDT Narrative Resulting Agency Comment Spec In Lab Micha Givens Jr., MD IMMUNOLOGY ORDERABLE S Performing Organization Address City/[facility] Co de Phone Number [facility] [place] [address] * (ABNORMAL) Alton-Dominguez Virus Antibodies (09/21/2023 11:14 AM EDT) EBV (VCA) IgG Ab Positive(A) Negative [facility] EBV (VCA) IgM Ab Negative Negative [facility] EBNA Antibodies Positive(A) Negative [facility] EBV Interpretation Past EBV infection. [facility] Comment: In most populations, [...] MD IMMUNOLOGY ORDERABLE S Performing Organization Address City/[facility]/ZIP Co de Phone Number [facility] [address] * CMV Antibody, IgM (09/21/2023 11:14 AM EDT) CMV IgM Negative Negative [facility] Blood 09/21/2023 11:1 4 AM EDT 09/21/2023 1:04 PM EDT Narrative Resulting Agency Comment Spec In Lab Micha Givens Jr., MD IMMUNOLOGY ORDERABLE S Performing Organization Address [facility] Co de Phone Number [facility] [place] [address] * CMV Antibody, IgG (09/21/2023 11:14 AM EDT) CMV IgG Negative Negative [facility] Blood 09/21/2023 11:1 4 AM EDT 09/21/2023 1:04 PM EDT Narrative Resulting Agency Comment Spec In Lab Micha Givens Jr., MD IMMUNOLOGY ORDERABLE S Performing Organization Address [facility]/ZIP Co de Phone Number [facility] [place] [address] * (ABNORMAL) Lactate Dehydrogenase (09/21/2023 11:14 AM EDT) Lactate Dehydrogenase 426(H) 110 - 220 unit/L [facility] Blood 09/21/2023 11:1 4 AM EDT 09/21/2023 11:30 AM EDT Narrative Resulting Agency Comment Spec In Lab Micha Givens Jr., MD CHEMISTRY ORDERABLES Performing Organization Address City/[facility]/ZIP Co de Phone Number [facility] [address] * (ABNORMAL) Comprehensive metabolic panel (non-fasting) (09/21/2023 11:14 AM EDT) Glucose 326(H) 65 - 199 mg/dL [facility] Comment:Diabetes: >=200 mg/d L plus symptoms Blood Urea Nitrogen 26(H) 10 - 20 mg/dL [facility] Creatinine 1.16 0.80 - 1.50 mg/dL [facility] Sodium 138 135 - 145 mmol/L [facility] Potassium 4.0 3.5 - 5.0 mmol/L [facility] Comment: Please note: ??Patients with WBC >100,000 may have falsely elevated Potassium levels. ??For accurate Potassium quantification in these patients send serum separator tube (gold top) for subsequent determinations. ??Contact the Clinical Chemistry Laboratory if there are any questions. Chloride 103 98 - 107 mmol/L [facility] Carbon Dioxide 21(L) 22 - 31 mmol/L [facility] Anion Gap 14 5 - 15 mmol/L [facility] Calcium 9.5 8.5 - 10.5 mg/dL [facility] Protein, Total 6.3 6.1 - 8.0 g/dL [facility] Albumin 3.9 3.2 - 5.2 g/dL [facility] Aspartate Aminotransferase 54(H) 0 - 39 unit/L [facility] Alanine Aminotransferase 72(H) 0 - 55 unit/L [facility] Alkaline Phosphatase 202(H) 40 - 130 unit/L [facility] Bilirubin, Total 0.4 0.2 - 1.3 mg/dL [facility] Est Glomerular Filtration Rate 66 >=60 mL/min/1. 73 m?? [facility] Comment: This patient's estimated [...] Lab Micha Givens Jr., MD CHEMISTRY ORDERABLES [facility] [place] [address] * Urinalysis with reflex Culture (09/21/2023 11:11 AM EDT) Glucose, Urine Dipstick Negative Negative mg/dL [facility] Protein, Urine Dipstick Negative Negative mg/dL [facility] Bilirubin, Urine Dipstick Negative Negative mg/dL [facility] Comment: Clinical correlation required for positive Urine Bilirubin results as false positive may occur with some drugs and drug related products. If a false positive is suspected a serum total bilirubin should be considered if clinically indicated. Urobilinogen, Urine Dipstick Normal Normal mg/dL [facility] pH, Urn (dipstick) 6.5 5.0 - 8.0 [facility] Blood, Urine Dipstick Negative Negative mg/dL [facility] Ketone, Urine Dipstick Negative Negative mg/dL [facility] Nitrite, Urine Dipstick Negative Negative [facility] Leukocytes, Urine Dipstick Negative Negative [facility]ATORY Appearance, Urine Dipstick Clear Clear [facility] Specific [place] Urine Automated 1.009 1.005 - 1.030 [facility] Color, Urine Dipstick Yellow Yellow [facility] Reflex to Culture No [facility] Clean Catch Urine 09/21/2023 11:11 AM EDT 09/21/2023 11:33 AM EDT Narrative Resulting Agency Comment Spec In Lab Micha Givens Jr., MD URINE ORDERABLES [facility] [place] [address] documented in this encounter Visit Diagnoses Diagnosis 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 Pre-op testing Preoperative examination, unspecified Prostate cancer screening Special screening for malignant neoplasm of prostate Iron deficiency anemia, unspecified iron deficiency anemia type documented in this encounter Care Teams Education And Outreach Coordinator Relationship Specialty Start Date End Date Frederick Meade MD [address] [place] [address] PCP - General Family Medicine 11/29/17 documented as of this encounter
--- OUTSIDE RECORDS SUMMARY | 2023-10-11 03:38 | XMS_ITS | Encounter Summary ---
Author Organization [facility] [place] [address] Care Team Providers Care Senior Net Programmer Name Role Phone Frederick Meade MD Primary Care Provider [phone] [phone] Encounter Details Date Type Department Care Team (Late st Contact Info) Description 10/03/2023 10:00 AM EDT Office Visit Hematology/Oncology at [address] [phone] Adrianne Ramon MD [facility] DR HEMATOLOGY [place] [address] Yael Merlos APRN [facility] DR HEMATOLOG[place] [address] Diffuse large B-cell lymphoma of lymph nodes [...] Mass Index 30.26 10/03/2023 9:57 AM EDT documented in this encounter Progress Notes * Adrianne Ramon MD - 10/03/2023 10:00 AM EDT Images from the original note were not included. Hematology Clinic [facility] [place] [address] HEMATOLOGY PATIENT EVALUATION PROBLEM LIST: Patient Active Problem List Diagnosis Abnormal echocardiogram Diffuse large B-cell lymphoma of lymph nodes of multiple regions Anemia, iron deficiency Gout Malignant neoplasm of prostate HISTORY OF PRESENT ILLNESS: Patient prefers to be called: Cheo Support person(s) : Claritza son Cheo step daughter - Sarath It was my pleasure [...] to consultation, he saw [facility] in [facility] and when to [facility]. No beds so sent to [facility] for [address] CAP, [...] x7 days with nice response. [facility] large B-cell lymphoma. Double expresser. FISH for translocations are pending. Tongue swelling. No wt loss. Eating and drinking OK. No fevers, infections, No NS. Pain in neck. Prednisone 60mg daily X 7 days. I feel great on prednisone last day of prednisone is today. Took iron supplements per PCP - unclear cause. - last COLO at [facility] was 01/17/2012. INTERIM HISTORY OF PRESENT ILLNESS: Seen today for start of Revlimid and rituximab. Met with Dr. Givens 2 weeks ago to discuss CAR-T celltherapy. He is interested in pursuing this. Had an echocardiogram the end of August with ejection fraction of 60%. Called in earlier in the week with constipation. Appreciate crime analyst and recommendations. Cheo is here today for his third week of rituximab. He is also on Revlimid and tolerating it well. Tonsil has decreased in size. He is completing his prednisone taper. PCP is helping with management of his diabetes. He has had problems with constipation which we discussed again today. Hand cramping -could be Revlimid or steroids. Will try potassium supplements. Starting 20 mEq daily. 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 6 mos of adjuvant Lupron. Total dose 79.2 Gy completed 01/26/15 09/29/22 Large B Cell lymphoma - biopsy of tongue and needle of cervical LN. FISH from [facility] No MYCrearrangement and no fusion of MYC [...] and biopsy + for DLBCL ABC subtype. 09/21/23 CAR-T cell evaluation 09/24/23 C#1 R2 - rev 20mg X21 d started with weekly rituxan X 4 Plans for R2 then CAR-T cell therapy [...] dysphagia, odynophagia GERD: No Nausea/vomiting: No diarrhea/constipation: See HPI SOB/CONTEH/pulmonary sx: No Cardiac symptoms: No sx: [...] amLODIPine (NORVASC) 5 mg, Oral, DAILY aspirin 325 mg, Oral, DAILY colchicine (COLCRYS) 0.6 mg, Oral, DAILY PRN diphenoxylate-atropine (Lomotil) 2.5-0.025 mg tablet 1 tablet, Oral, 4 TIMES DAILY PRN docusate sodium (COLACE) 100 mg, Oral, 2 TIMES DAILY Ibuprofen 200 mg Capsule Oral, 4 TIMES DAILY PRN, Reported on 05/24/2016 insulin aspart protamine-insulin aspart 70/30 (NovoLOG MIX 70/30) 100 unit/mL (70-30) Solution Subcutaneous, DAILY lactobacillus (BACID) Capsule 1 tablet, Oral, DAILY lenalidomide (REVLIMID) 20 mg, Oral, DAILY, Call clinic before starting medication. loratadine (CLARITIN) 10 mg, Oral, DAILY ONE TOUCH DELICA 33 gauge Misc USE TO TEST DAILY ONETOUCH ULTRA BLUE TEST STRIP Strip USE TO TEST DAILY ONETOUCH ULTRASOFT LANCETS Misc USE TO TEST DAILY potassium chloride ER (Klor-Con M) 20 mEq ER micro-encapsulated crystal tablet 20 mEq, Oral, DAILY predniSONE (Deltasone) 20 mg tablet Take 5 tablets by mouth daily for 3 days, THEN 4 tablets daily for 3 days, THEN 3 tablets daily for 3 days, THEN 2 tablets daily for 3 days, THEN 1 tablet daily for 3 days. Psyllium Seed-Sucrose (0) Powder Oral, 2 TIMES [...] Freire. Enjoys reads, movies, race car, cards. [employer]. 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 Not a . ETOH: 1-3 beers per week Smoking: Quit 1985. Approximately 84-inmz-sguv history Vaping or electronic cigarettes: denies Chewing tobacco: denies Marijuana or other recreational drug use: none HIPPA Contact Permission: Claritza and Cheo. Also OK to talk to Delia adult children. OK to leave message with medical information on home or cell phone: home phone PHYSICAL EXAM BP 124/60 (Patient Position: Sitting) Pulse 61 Temp 36.2 ??C (97.1 ??F) (Temporal) Resp 16 Ht 170.1 cm (5' 6.97) Wt 87.5 kg (193 lb) SpO2 98% BMI 30.26 kg/m?? GENERAL: Cheo Freire is a delightful 73-year old male in [facility]. He is accompanied to [...] wall tenderness. 09/12/2023 left antecubital LABORATORY STUDIES Recent Results (from the past 72 hour(s)) External Chemistry Lab Results Result Value Ref Range Blood Urea Nitrogen - External 26 Creatinine - External 1.5 Potassium - External 3.3 AST (SGOT) - External 24 ALT (SGPT) - External 45 Total Bilirubin - External 0.61 Ferritin - External 397 LDH - External 226 External Hematology Lab Results Result Value Ref Range WBC - External 16.27 Hemoglobin - External 12.2 Hematocrit - External 36.9 Platelets - External 167 Neutr ABS (ANC) - External 13.8 Latest Reference Range & Units 09/21/23 11:14 [...] History Not Found T&S only valid at [facility] Hosp ABORH Recheck Order Order Placed ABORH Type Recheck not performed WILLIAN Negative PATHOLOGY: 09/06/23 DIAGNOSIS A - Left antecubital mass, biopsy Diagnosis : Atypical lymphoid proliferation c/w Diffuse large B-cell lymphoma- NOS. B - Left axillary lymph node, biopsy Diagnosis : D iffuse large B-cell lymphoma- NOS. positive for CD20, BCl2(>50%), cMYC(>40%), MUm1, Bcl6 and negative for the rest of the markers they were tested for .Ki67 is at 80%. ABC subtype. CD10 neg POSITIVE for FISH markers DETECTED below ---Results--- Diffuse Large B-Cell Lymphoma FISH Panel: ?? Three copies of BCL2 locus DETECTED ?? BCL6/3q27, MYC/8q24, MYC-IGH/t(8;14), CCND1-IGH/t(11;14), and BCL2/18q21 gene rearrangments NOT DETECTED. 10/11/22 Final Diagnosis A. Tongue base, left: -Large B-cell lymphoma, incompletely classified. See comment. Diagnosis Comment The findings are those of a large B-cell lymphoma that exhibits a non-germinal center immunophenotype and expresses Myc and BCL-2 protein (Double Expressor.) Flow cytometry ([id number]) supports this interpretation. FISH from [place] No MYC rearrangement and no fusion of MYC and IGH was observed, CD3 (SP7, [employer] Scientific) Background T-cells CD20 (L26, [employer]) diffusely positive in Neoplastic B-cells PAX-5 (1EW, Leica) diffusely positive in Neoplastic B-cells CD10 (SP67, [employer]) Negative BCL-6 (G/191E/A8, [employer]) Positive MUM-1 (MUM1p, Dako) Positive Myc (Y69, [employer]cam) Positive BCL-2 Oncoprotein (124, [employer]) Positive Ki67 (MIB-1) (K2, Leica) Greater than 95% of cells in cycle Cyclin D1(SP4-R, [employer]) Negative SAPPHIRE JOSE ([id number], Leica) Negative. DIAGNOSTICS: [facility] ECHO EF 60% 01/25/23 ECHO after C#5 EF 50-55% 11/28/22 ECHO after C#2 EF 52% 11/06/22 ECHO after C#1 [facility] EF = 52% Interpretation Summary LV systolic [...] 08/22/2023 left upper extremity ultrasound performed at [facility] Notable findings: In the left antecubital [...] undergo investigation with ultrasound. CT CAP at [facility], report and images have been requested. [...] at least 1 month spent locally at [facility] and local hospital. Unfortunately, because ofhis age, [...] concepts, and the time it entails at [facility]. This would be a significant commitment for the patient and his family as they live [place] hours away from [facility]. They feel comfortable that they [...] patients were alive and relapse free. Finally [facility] September 19, 2016, Robb Hernandez et al, [...] weeks in a row followed by monthly. Rituxan weeklyx 4 started on 09/19/2023. Here today for consideration of day #22. Started Revlimid on 09/24/23. Tolerating relatively well. Some constipation. Cardiac -Cheo has no cardiac history. No [...] LVEF at 50-55%. --asymptomatic --repeat echo at [facility] 1 year post completion of therapy [...] Prostate Cancer - DAVE at this time C-diff colitis - unable to afford Dificid prescribed at discharge from the hospital so his course was completed with treatment doses of Vano completed on 11/30/22 following which prophylactic oral vanco 125mg po bid was initiated and will continue for the duration of his chemotherapy. Consider vanco prophy for prolonged ATB use. --no intervention, not an active problem at this time Constipation -RN triaging beautifully. Will continue to follow. Will try probiotics and perhaps suppository if necessary Plan: Complete pred wean on 10/05/23 CAR-T cell program referral ongoing, Dr. Givens Given c-diff, will need to consider vanco prophy if requires ATB in next 6 - 12 mos Revlimid 20 mg daily x 21 days on and 7 days off. 28-day cycle start in conjunction with rituximab - started C#1 revlamid on 09/24/23 Rituxan Day 29 next week then start first monthly rituximab on 10/16. Next follow-up appointment 10/16 on site video appt with rituxan to follow and then 4 weeks later needs labs, appt and rituxan. KCL 20meq daily for hypokalemia and hand cramping Constipation -using Metamucil and Colace. If no bowel movement by tomorrow he will try MiraLAX. I will ask the nurses to call him tomorrow afternoon to check. I discussed all of the above with the patient and all of his questions were answered. Support and counseling as appropriate. Copy Frederick Meade MD documented in this encounter Plan of Treatment Upcoming Encounters Date Type Department Care Team (Late st Contact Info) Description 10/11/2023 8:30 AM EDT Infusion Hematology Oncology at [address] [phone] 10/17/2023 1:00 PM EDT TH Visit (TeleHealth) Hematology/Oncology at [address] [phone] Adrianne Ramon MD [facility] HEMATOLOGY [place] [address] Yael Merlos APRN [facility] HEMATOLOGY [place] [address] 10/17/2023 1:30 PM EDT Infusion Hematology Oncology at [address] [phone] 11/14/2023 9:30 AM EDT Office Visit Hematology/Oncology at [address] [phone] Adrianne Ramon MD [facility] HEMATOLOGY [place] [address] Yael Merlos, [facility] [place] [address] 11/14/2023 10:00 AM EDT Infusion Hematology Oncology at [address] [phone] documented as of this encounter Procedures Procedure Name Priority Date/Time Associated Diagnosis Comments EXTERNAL HEMATOLOGY LAB RESULTS Routine 10/03/2023 EXTERNAL CHEMISTRY LAB RESULTS Routine 10/03/2023 documented in this encounter Results * External Hematology Lab Results (10/03/2023) WBC - External 16.27 Hemoglobin - External 12.2 Hematocrit - External 36.9 Platelets - External 167 Neutr ABS (ANC) - External 13.8 10/03/2023 Historical Provider MD [facility] * External Chemistry Lab Results (10/03/2023) Blood Urea Nitrogen - External 26 Creatinine - External 1.5 Potassium - External 3.3 AST (SGOT) - External 24 ALT (SGPT) - External 45 Total Bilirubin - External 0.61 Ferritin - External 397 LDH - External 226 10/03/2023 Historical Provider MD [facility] documented in this encounter Visit Diagnoses Diagnosis Diffuse large B-cell lymphoma of lymph nodes of multiple regions documented in this encounter Care Teams Senior Net Programmer Relationship Specialty Start Date End Date Frederick Meade MD [address] [place] [address] PCP - General Family Medicine 11/29/17 documented as of this encounter
--- OUTSIDE RECORDS SUMMARY | 2023-10-11 03:38 | XMS_ITS | Encounter Summary ---
Author Organization [facility] [place] [address] Care Team Providers Care Private Sector Executive Name Role Phone Frederick Meade MD Primary Care Provider [phone] Reason for Visit * Treatment/Therapy Plan Authorization (Routine) - Authorized Specialty Diagnoses / Procedures Referred By Contac t Referred To Contact Hematology and Oncology Diagnoses Diffuse large B-cell lymphoma of lymph nodes of multiple regions Adrianne Ramon MD [facility] DR [place] [address] Stj Hem Onc Infusion [address] [place] [phone] Referral ID Status Reason Start Date Expiration Date V isits Requested Visits Authorized [id number] Authorized 09/12/2023 09/11/2024 99 99 Encounter Details Date Type Department Care Team (Late st Contact Info) Description 10/11/2023 8:30 AM EDT Infusion Hematology Oncology at [address] [phone] Social History Tobacco Use Types [...] Care Team (Late st Contact Info) Description 10/17/2023 1:00 PM EDT TH Visit (TeleHealth) Hematology/Oncology at [address] [phone] Adrianne Ramon MD [facility] [place]AT[place] [address] Yael Merlos APRN [facility] [place] [address] 10/17/2023 1:30 PM EDT Infusion Hematology Oncology at [address] [phone] 11/14/2023 9:30 AM EDT Office Visit Hematology/Oncology at [address] [phone] Adrianne Ramon MD [facility] DR [place] [address] Yael Merlos APRN [facility] [place]AT[place]Y [place] [address] 11/14/2023 10:00 AM EDT Infusion Hematology Oncology at [address] [phone] documented as of this encounter Visit Diagnoses Not on filedocumented in this encounter Care Teams Private Sector Executive Relationship Specialty Start Date End Date Frederick Meade MD [address] [place] [address] PCP - General Family Medicine 11/29/17 documented as of this encounter
--- OUTSIDE RECORDS SUMMARY | 2023-10-11 03:38 | XMS_ITS | Encounter Summary ---
Author Organization [facility] [place] [address] Care Team Providers Care High School Library Media Specialist Name Role Phone Frederick Meade MD Primary Care Provider [phone] Reason for Visit * Reason Onset Date Comments Constipation 09/28/2023 Encounter Details Date Type Department Care Team (Late st Contact Info) Description 09/28/2023 Telephone Hematology/Oncology at [address] [phone] Colt Ardon RN Constipation Social [...] AM EDT Infusion Hematology Oncology at [address] [phone] 10/17/2023 1:00 PM EDT TH Visit (TeleHealth) Hematology/Oncology at [address] [phone] Adrianne Ramon MD [facility] HEMATOLOGY [place] [address] Yael Merlos, KARLA [facility] HEMATOLOGY [place] [address] 10/17/2023 1:30 PM EDT Infusion Hematology Oncology at [address] [phone] 11/14/2023 9:30 AM EDT Office Visit Hematology/Oncology at [address] [phone] Adrianne Ramon MD [facility] HEMATOLOGY [place] [address] Yael Merlos, DIRECTOR OF CORPORATE MARKETING [facility] HEMATOLOGY [place] [address] 11/14/2023 10:00 AM EDT Infusion Hematology Oncology at [address] [phone] documented as of this encounter Visit Diagnoses Not on filedocumented in this encounter Care Teams High School Library Media Specialist Relationship Specialty Start Date End Date Frederick Meade MD [address] [place], [place] [address] PCP - General Family Medicine 11/29/17 documented as of this encounter
--- OUTSIDE RECORDS SUMMARY | 2023-10-11 03:39 | XMS_ITS | Encounter Summary ---
Author Organization [facility] Address [facility] [place] [address] Care Team Providers Care Millinery Department Manager Name Role Phone Frederick Meade MD Primary Care Provider [phone] Reason for Visit * Reason Onset Date Comments Other 09/19/2023 Prednisone taper Encounter Details Date Type Department Care Team (Late st Contact Info) Description 09/19/2023 Telephone Hematology/Oncology at [address] [phone] Polly Orellana RN Other (Prednisone [...] no changes in size. Reviewed with Dr. Raomn. She wants him to take prednsione taper [...] AM EDT Infusion Hematology Oncology at [address] [phone] 10/17/2023 1:00 PM EDT TH Visit (TeleHealth) Hematology/Oncology at [address] [phone] Adrianne Ramon MD [facility] [place] [address] Yael Merlos, PLANT UTILITY PERSON [facility] [place] [address] 10/17/2023 1:30 PM EDT Infusion Hematology Oncology at [address] [phone] 11/14/2023 9:30 AM EDT Office Visit Hematology/Oncology at [address] [phone] Adrianne Ramon MD [facility] [place] [address] Yael Merlos APRN [facility] [place] [address] 11/14/2023 10:00 AM EDT Infusion Hematology Oncology at [address] [phone] documented as of this encounter Visit Diagnoses Not on filedocumented in this encounter Care Teams Millinery Department Manager Relationship Specialty Start Date End Date Frederick Meade MD [address] [place] [address] PCP - General Family Medicine 11/29/17 documented as of this encounter
--- OUTSIDE RECORDS SUMMARY | 2023-10-11 03:39 | XMS_ITS | Encounter Summary ---
Author Organization [facility] Address [facility] [place] [address] Care Team Providers Care Associate Professor Of Biology Name Role Phone Frederick Meade MD Primary Care Provider [phone] Reason for Visit * Reason Onset Date Comments New Medication Request 09/12/2023 revlimid Encounter Details Date Type Department Care Team (Late st Contact Info) Description 09/12/2023 Telephone Hematology/Oncology at [address] [phone] Polly Orellana, OSCAR New Medication [...] Prescriber online survey done 09/12/23 with the [employer] Revlimid [facility] Program Revlimid Auth # [id number] Pt Survey done on 09/12/23 Prescription to be manually faxed to [facility] [phone] phone [phone] after obtaining signature Adrianne Ramon MD Script [...] AM EDT Infusion Hematology Oncology at [address] [phone] 10/17/2023 1:00 PM EDT TH Visit (TeleHealth) Hematology/Oncology at [address] [phone] Adrianne Ramon MD [facility] HEMATOLOGY [place] [address] Yael Merlos, [facility] HEMATOLOGY [place] [address] 10/17/2023 1:30 PM EDT Infusion Hematology Oncology at [address] [phone] 11/14/2023 9:30 AM EDT Office Visit Hematology/Oncology at [address] [phone] Adrianne Ramon MD [facility] HEMATOLOGY [place] [address] Yael Merlos [facility] HEMATOLOGY [place] [address] 11/14/2023 10:00 AM EDT Infusion Hematology Oncology at [address] [phone] documented as of this encounter Visit Diagnoses Not on filedocumented in this encounter Care Teams Associate Professor Of Biology Relationship Specialty Start Date End Date Frederick Meade MD [address] [place] [address] PCP - General Family Medicine 11/29/17 documented as of this encounter
--- OUTSIDE RECORDS SUMMARY | 2023-10-11 03:39 | XMS_ITS | Encounter Summary ---
[place] [address] Care Team Providers Care Projection Camera Operator Name Role Phone Frederick Meade MD Primary Care Provider [phone] Reason for Referral * Diagnostic Test (Routine) - Closed Specialty Diagnoses / Procedures Referred By Contac t Referred To Contact Radiology Diagnoses Diffuse large B-cell lymphoma of lymph nodes of multiple regions Procedures IR Mediport Removal Yael Merlos CHIEF GROWTH OFFICER [facility] [place] [address] [facility] [place] [address] Referral ID Status Reason Start Date Expiration Date V isits Requested Visits Authorized [id number] Closed Specialty Service Requested 03/15/2023 09/12/2024 1 1 Encounter Details Date Type Department Care Team (Late st Contact Info) Description 03/15/2023 Orders Only Hematology [place] [phone] Yael Merlos CHIEF GROWTH OFFICER [facility] [place] [address] Diffuse large B-cell lymphoma of [...] AM EDT Infusion Hematology Oncology at [address] [phone] 10/17/2023 1:00 PM EDT TH Visit (TeleHealth) Hematology/Oncology at [address] [phone] Adrianne Raomn MD [facility] [place] [address] Yael Merlos APRN [facility] HEMATOLOGY [place] [address] 10/17/2023 1:30 PM EDT Infusion Hematology Oncology at [address] [phone] 11/14/2023 9:30 AM EDT Office Visit Hematology/Oncology at [address] [phone] Adrianne Ramon MD [facility] DR [facility] [place] [address] Yael Merlos APRN [facility] HEMATOLOGY [place] [address] 11/14/2023 10:00 AM EDT Infusion Hematology Oncology at [address] [phone] documented as of this encounter Results * IR Mediport Removal (03/29/2023 2:32 PM EST) Anatomical Region Laterality Modality X-Ray Angiograph y Narrative 2023 1:04 PM EST Interventional Radiology Procedure Note Procedure: Chest port explant Indication: Lymphoma, therapy complete, discontinue fpc central venous access for chemotherapy Pre-procedure: Informed [...] venous port with all components accounted for. 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
--- OUTSIDE RECORDS SUMMARY | 2023-10-11 03:39 | XMS_ITS | Encounter Summary ---
[place] [address] Care Team Providers Care Broadcast Operations Engineer Name Role Phone Frederick Meade MD Primary Care Provider [phone] Reason for Referral * Diagnostic Test (Routine) - Authorized Specialty Diagnoses / Procedures Referred By Contac t Referred To Contact Radiology Diagnoses Diffuse large B-cell lymphoma of lymph nodes of multiple regions Procedures CT Neck Soft Tissue w Contrast (Generic) Yael Merlos APRN [facility] [place] [address] Referral ID Status Reason Start Date Expiration Date Visits Requested Visits Authorized [id number] Authorized Specialty Service Requested 06/13/2023 12/12/2024 1 1 * Diagnostic Test (Routine) - Authorized Specialty Diagnoses / Procedures Referred By Contac t Referred To Contact Radiology Diagnoses Diffuse large B-cell lymphoma of lymph nodes of multiple regions Procedures CT Chest Abdomen Pelvis w Contrast (Generic) Yael Merlos APRN [facility] [place] [address] Referral ID Status Reason Start Date Expiration Date Visits Requested Visits Authorized [id number] Authorized Specialty Service Requested 06/13/2023 12/12/2024 1 1 Reason for Visit * Reason Comments Follow-up Encounter Details Date Type Department Care Team (Late st Contact Info) Description 06/13/2023 11:00 AM EDT Office Visit Hematology/Oncology at [address] [address] Adrianne Ramon MD [facility] [address] [place] [address] Yael Merlos APRN [facility] [place] [address] Diffuse large B-cell lymphoma of lymph nodes [...] this encounter Progress Notes * Yael Merlos, BROADCAST SYSTEMS ENGINEER - 06/13/2023 11:00 AM EDT Hematology Clinic [facility] [place] [address] HEMATOLOGY PATIENT EVALUATION PROBLEM LIST: Patient Active [...] to consultation, he saw [facility] and when to [facility]. No beds so sent to [facility] for [address] CAP, [...] - unclear cause. - last COLO at [facility] was 01/17/2012. INTERIM HISTORY OF PRESENT ILLNESS: [...] using his bike. They are opening their prairie band again inviting in close friends and family and beginning to extends back out in their social prairie band which is quite reasonable at this point. No new health-related concerns. 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 6 mos of adjuvant Lupron. Total dose 79.2 Gy completed 01/26/15 09/29/22 Large B Cell lymphoma - biopsy of tongue and needle of cervical LN. FISH from [place] No MYCrearrangement and no fusion of MYC [...] only 1 biologic. Son Cheo Freire. Enjoys [employer], movies, race car, [employer]. [employer]. 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 Not a . ETOH: 1-3 beers per week Smoking: Quit 1985. Approximately 02-utlo-jazx history Vaping or electronic cigarettes: denies Chewing [...] is a delightful 73-year old male in [facility] [...] and BCL-2 protein (Double Expressor.) Flow cytometry ([id number]) supports this interpretation. FISH from [place] No MYC rearrangement and no fusion of MYC and IGH was observed, CD3 (SP7, [employer]) Background T-cells CD20 (L26, [place]) diffusely positive in Neoplastic B-cells PAX-5 (1EW, Le[employer]) diffusely positive in Neoplastic B-cells CD10 (SP67, [place]) Negative BCL-6 (G/191E/A8, [place]) Positive MUM-1 (MUM1p, [place]) Positive Myc (Y69, [employer]) Positive BCL-2 Oncoprotein (124, [place]) Positive Ki67 (MIB-1) (K2, Leica) Greater than 95% of cells in cycle Cyclin D1(SP4-R, [place]) Negative SAPPHIRE JOSE ([id number], Leica) Negative. DIAGNOSTICS: 01/25/23 ECHO after C#5 [...] undergo investigation with ultrasound. CT CAP at [facility], report and images have been [...] LVEF at 50-55%. --asymptomatic --repeat echo at [facility] 1 year post completion of therapy [due [...] and counseling as appropriate. Yael Merlos, MSN, BROADCAST SYSTEMS ENGINEER Nurse Practitioner Section of Hematology Copy Frederick Meade MD documented in this encounter Plan of Treatment Upcoming Encounters Date Type Department Care Team (Late st Contact Info) Description 10/11/2023 8:30 AM EDT Infusion Hematology Oncology at [address] [address] 10/17/2023 1:00 PM EDT TH Visit (TeleHealth) Hematology/Oncology at [address] [address] Adrianne Ramon MD [facility] [place] [address] Yael Merlos APRN [facility] [place] [address] 10/17/2023 1:30 PM EDT Infusion Hematology Oncology at [address] [address] 11/14/2023 9:30 AM EDT Office Visit Hematology/Oncology at [address] [address] Adrianne Ramon MD [facility] [place] [address] Yael Merlos APRN [facility] [place] [address] 11/14/2023 10:00 AM EDT Infusion Hematology Oncology at [address] [phone] Scheduled Orders Name Type Priority [...] type documented in this encounter Care Teams Broadcast Operations Engineer Relationship Specialty Start Date End Date Frederick Meade MD [address] [place] [address] PCP - General Family Medicine 11/29/17 documented as of this encounter
--- OUTSIDE RECORDS SUMMARY | 2023-10-11 03:39 | XMS_ITS | Encounter Summary ---
[place] [address] Care Team Providers Care System Software Developer Name Role Phone Frederick Meade MD Primary Care Provider [phone] Encounter Details Date Type Department Care Team (Late st Contact Info) Description 06/22/2023 Orders Only Hematology [place] [phone] Deidre Silverio Social History Tobacco Use Types [...] AM EDT Infusion Hematology Oncology at [address] [address] 10/17/2023 1:00 PM EDT TH Visit (TeleHealth) Hematology/Oncology at [address] [address] [facility] HEMATOLOGY AND [place] [address] [facility] HEMATOLOGY AND [place] [address] 10/17/2023 1:30 PM EDT Infusion Hematology Oncology at [address] [address] 11/14/2023 9:30 AM EDT Office Visit Hematology/Oncology at [address] [address] [facility] HEMATOLOGY [place] [address] [facility] HEMATOLOGY AND [place] [address] 11/14/2023 10:00 AM EDT Infusion Hematology Oncology at [address] [phone] documented as of this encounter Visit Diagnoses Not on filedocumented in this encounter Care Teams System Software Developer Relationship Specialty Start Date End Date Frederick Meade MD [address] [place], [place] [address] PCP - General Family Medicine 11/29/17 documented as of this encounter
--- OUTSIDE RECORDS SUMMARY | 2023-10-11 03:39 | XMS_ITS | Encounter Summary ---
[place] [address] Care Team Providers Care Data Compiler Name Role Phone Frederick Meade MD Primary Care Provider [phone] Reason for Referral * Diagnostic Test (Routine) - Closed Specialty Diagnoses / Procedures Referred By Contac t Referred To Contact Radiology Diagnoses Diffuse large B-cell lymphoma of lymph nodes of multiple regions Skin nodule Procedures IR Biopsy Lymph Node (Chest/Abdomen/Pelvis) IR Biopsy Lymph Node (Head/Neck) Adrianne Ramon MD [facility] DR HEMATOLOGY [place] [address] [place] [address] Referral ID Status Reason Start Date Expiration Date V isits Requested Visits Authorized [id number] Closed Specialty Service Requested 08/22/2023 02/21/2025 1 1 * Diagnostic Test (Routine) - Closed Specialty Diagnoses / Procedures Referred By Contac t Referred To Contact Radiology Diagnoses Diffuse large B-cell lymphoma of lymph nodes of multiple regions Skin nodule Procedures NM PET CT Standard Plus Extremities and Head Adrianne Ramon MD [facility] DR HEMATOLOGY [place] [address] [place] [address] Referral ID Status Reason Start Date Expiration Date V isits Requested Visits Authorized [id number] Closed Specialty Service Requested 08/22/2023 02/21/2025 1 1 Encounter Details Date Type Department Care Team (Late st Contact Info) Description 08/22/2023 12:30 PM EDT Office Visit Hematology/Oncology at [address] [phone] Adrianne Ramon MD [facility] DR HEMATOLOGY [place] [address] Yael Merlos APRN [facility] HEMATOLOGY [place] [address] Diffuse large B-cell lymphoma of lymph nodes [...] - 08/22/2023 12:30 PM EDT Hematology Clinic [facility] [place] [address] HEMATOLOGY PATIENT EVALUATION PROBLEM LIST: Patient Active [...] [place] and when to [facility]. No beds so sent to [facility] for [address] [...] unclear cause. - last COLO at [facility] was 01/17/2012. INTERIM HISTORY OF [...] and needle of cervical LN. FISH from [place] No MYCrearrangement and no fusion of MYC [...] only 1 biologic. Son Cheo Freire. Enjoys [employer], movies, race car, cards. [employer]. 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 Not a . ETOH: 1-3 beers per week Smoking: Quit 1985. Approximately 13-ifyq-wzrq history Vaping or electronic cigarettes: denies Chewing [...] is a delightful 73-year old male in [facility]. He is accompanied to the [...] and BCL-2 protein (Double Expressor.) Flow cytometry ([id number]) supports this interpretation. FISH from [place] No MYC rearrangement and no fusion of MYC and IGH was observed, CD3 (SP7, Thermo Scientific) Background T-cells CD20 (L26, [place]) diffusely positive in Neoplastic B-cells PAX-5 (1EW, Leica) diffusely positive in Neoplastic B-cells CD10 (SP67, [place]) Negative BCL-6 (G/191E/A8, [place]) Positive MUM-1 (MUM1p, [employer]ako) Positive Myc (Y69, [employer]cam) Positive BCL-2 Oncoprotein (124, [place]) Positive Ki67 (MIB-1) (K2, Leica) Greater than 95% of cells in cycle Cyclin D1(SP4-R, [place]) Negative SAPPHIRE JOSE ([id number], Leica) Negative. DIAGNOSTICS: 01/25/23 ECHO after C#5 [...] left upper extremity ultrasound performed at [facility] Notable findings: In the left [...] undergo investigation with ultrasound. CT CAP at [facility], report and images have been requested. [...] listed above with ultrasound done today at [facility]. See report in scanned documents. This may represent a recurrence, but it could also be infectious. I spoke to Dr. Bruce Husain at [facility], who recommended large core needle biopsy. [...] keep. We will also do labs at [facility] on day of bio psies. Cardiac -Cheo [...] at 50-55%. --asymptomatic --repeat echo at [facility] 1 year post completion of [...] - [address] [facility] Surveillance every 3 mos for first year [...] AM EDT Infusion Hematology Oncology at [address] [address] 10/17/2023 1:00 PM EDT TH Visit (TeleHealth) Hematology/Oncology at [address] [address] Adrianne Ramon MD [facility] DR HEMATOLOGY [place] [address] Yael Merlos, OPENER [employer] [facility] HEMATOLOGY [place] [address] 10/17/2023 1:30 PM EDT Infusion Hematology Oncology at [address] [address] 11/14/2023 9:30 AM EDT Office Visit Hematology/Oncology at [address] [address] Adrianne Ramon MD [facility] HEMATOLOGY [place] [address] Yael Merlos APRN [facility] HEMATOLOGY [place] [address] 11/14/2023 10:00 AM EDT Infusion Hematology Oncology at [address] [phone] documented as of this encounter Procedures Procedure Name Priority Date/Time Associated Diagnosis Comments CBC (WITH DIFF) Routine 08/22/2023 COMPREHENSIVE METABOLIC PANEL Routine 08/22/2023 documented in this encounter Results * NM PET CT Standard Plus Extremities and Head (09/06/2023 2:45 PM EDT) [employer] WORKSTATION ID [id number] DH RAD Anatomical Region Laterality Modality Positron [...] have questions please contact the health healthcare economics consultant that requested your imaging first. ? Electronically signed by: Rohan Henley MD, [facility] ([phone]), at 09/10/2023 11:18 AM Narrative 09/10/2023 11:18 [...] unspecified. TECHNIQUE: Procedure: Following IV injection of 07-vtbsdm-4-deoxyglucose (FDG) a standard uptake of approximately 60 [...] unspecified. TECHNIQUE: Procedure: Following IV injection of 74-yhuwhd-7-deoxyglucose(FDG) a standard uptake of approximately 60 minutes, [...] who have questions please contactthe health healthcare economics consultant that requested your imaging first. Electronically signed by: Rohan Henley MD, [facility]([phone]), at 09/10/2023 11:18 AM Adrianne Ramon MD [...] Ramon MD MICROBIOLOGY - B LOOD ORDERABLES [facility] [place] [address] * (ABNORMAL) Lactate Dehydrogenase (09/06/2023 10:12 AM EDT) Lactate Dehydrogenase 251(H) 110 - 220 unit/L [facility] Blood 09/06/2023 10:1 2 AM EDT 09/06/2023 10:16 AM EDT Narrative Resulting Agency Comment Spec In Lab Adrianne Ramon MD CHEMISTRY ORDERA BLES Performing Organization Address City/[facility]/ZIP Co de Phone Number [facility] [place] [address] * (ABNORMAL) Comprehensive metabolic panel (non-fasting) (09/06/2023 10:12 AM EDT) Glucose 170 65 - 199 mg/dL [facility] Comment:Diabetes: >=200 mg/d L plus symptoms Blood Urea Nitrogen 15 10 - 20 mg/dL [facility] Creatinine 1.07 0.80 - 1.50 mg/dL [facility] Sodium 143 135 - 145 mmol/L [facility] Potassium 3.8 3.5 - 5.0 mmol/L [facility] Comment: Please note: ??Patients with WBC >100,000 may have falsely elevated Potassium levels. ??For accurate Potassium quantification in these patients send serum separator tube (gold top) for subsequent determinations. ??Contact the Clinical Chemistry Laboratory if there are any questions. Chloride 107 98 - 107 mmol/L [facility] Carbon Dioxide 25 22 - 31 mmol/L [facility] Anion Gap 11 5 - 15 mmol/L [facility] Calcium 9.2 8.5 - 10.5 mg/dL [facility] Protein, Total 6.1 6.1 - 8.0 g/dL [facility] Albumin 3.7 3.2 - 5.2 g/dL [facility] Aspartate Aminotransferase 37 0 - 39 unit/L [facility] Alanine Aminotransferase 61(H) 0 - 55 unit/L [facility] Alkaline Phosphatase 151(H) 40 - 130 unit/L [facility] Bilirubin, Total 0.3 0.2 - 1.3 mg/dL [facility] Est Glomerular Filtration Rate 72 >=60 mL/min/1. 73 m?? [facility] [...] Lab Adrianne Ramon MD CHEMISTRY ORDERA BLES [facility] [place] [address] * Comprehensive metabolic panel (non-fasting) (08/22/2023) Creatinine [...] lump documented in this encounter Care Teams Data Compiler Relationship Specialty Start Date End Date Frederick Meade MD [address] [place] [address] PCP - General Family Medicine 11/29/17 documented as of this encounter
--- OUTSIDE RECORDS SUMMARY | 2023-10-11 03:39 | XMS_ITS | Encounter Summary ---
Author Organization [facility] [place] [address] Care Team Providers Care Printed Circuit Layout Taper Name Role Phone Frederick Meade MD Primary Care Provider [phone] Reason for Referral * Consultation (Routine) - Authorized Specialty Diagnoses / Procedures Referred By Paul bowen Referred To Contact [employer] Conservation Laborer Diagnoses 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 Pre-op testing Micha Givens Jr., MD [facility] [address] [place] [address] Maria L Barnes MSW Referral ID Status Reason Start Date Expiration Date Visits Requested Visits Authorized [id number] Authorized Consult, Test & Treat 09/21/2023 09/20/2024 1 1 * Consultation (Routine) - Authorized Specialty Diagnoses / Procedures Referred By Paul bowen Referred To Contact Diagnoses 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 Pre-op testing Micha Givens Jr., MD [facility] [address] [place] [address] [facility] [place] [address] Referral ID Status Reason Start Date Expiration Date Visits Requested Visits Authorized [id number] Authorized Continuity of Care 09/21/2023 09/20/2024 1 1 Encounter Details Date Type Department Care Team (Late st Contact Info) Description 09/21/2023 Orders Only Hematology and Oncology at [facility] [place] [address] Micha Givens Jr., MD [facility] HEMATOLOGY [place] [address] Diffuse large B-cell lymphoma of lymph nodes [...] AM EDT Infusion Hematology Oncology at [address] [address] 10/17/2023 1:00 PM EDT TH Visit (TeleHealth) Hematology/Oncology at [address] [address] Adrianne Ramon MD [facility] HEMATOLOGY [place] [address] Yael Merlos APRN [facility] HEMATOLOGY [place] [address] 10/17/2023 1:30 PM EDT Infusion Hematology Oncology at [address] [address] 11/14/2023 9:30 AM EDT Office Visit Hematology/Oncology at [address] [address] Adrianne Ramon MD [facility] HEMATOLOGY [place] [address] Yael Merlos SENIOR TECHNICAL ARCHITECT [facility] HEMATOLOGY [place] [address] 11/14/2023 10:00 AM EDT Infusion Hematology Oncology at [address] [address] Pending Results Name Type Priority Associated Diagnoses Date /Time Direct antiglobulin test Lab Routine 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 Pre-op testing 09/21/2023 11:14 AM EDT EKG 12 Lead ECG Routine 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 Pre-op testing 10/10/2023 2:40 PM EDT XR Chest PA & Lateral (Generic) Imaging [...] documented as of this encounter Results * Common Pulmonary Function [...] PFT FEV1/FVC Pre-BD Z-Score -2.14 [facility] PFT NET14-23 Actual Pre-BD 1.11 % [facility]AS PFT UGJ62-34 Predicted 2 % [facility] PFT WBC27-86 Pre-BD % of Predicted 56 % COMPAS PFT XIT14-50 Pre-BD Z-Score -1.17 COMPAS PFT DLCO Hb [...] emphysema. Micha Givens Jr., MD PFT ORDERABLES Performing Organization Address [facility] Co de Phone Number COMPAS PFT * (ABNORMAL) Iron and TIBC (09/21/2023 11:14 AM EDT) Iron 39(L) 45 - 160 mcg/dL [facility] TIBC 255 250 - 450 mcg/dL [facility] Iron Saturation 15(L) 20 - 50 % [facility] Blood 09/21/2023 11:1 4 AM EDT 09/21/2023 11:30 AM EDT Narrative Resulting Agency Comment Spec In Lab Micha Givens Jr., MD CHEMISTRY ORDERABLES Performing Organization Address [facility] Co de Phone Number [facility] [place] [address] * (ABNORMAL) CRP, acute inflammation (09/21/2023 11:14 AM EDT) [facility] C-Reactive Protein 52.8(H) <=4.9 mg/L [facility] Blood 09/21/2023 11:1 4 AM EDT 09/21/2023 11:30 AM EDT Narrative Resulting Agency Comment Spec In Lab Micha Givens Jr., MD CHEMISTRY ORDERABLES Performing Organization Address [facility] Co de Phone Number [facility] [place] [address] * Ferritin (09/21/2023 11:14 AM EDT) Ferritin 393 31 - 409 ng/mL [facility] Comment: Please note that as of 01/24/2023, the reference intervals for Ferritin have been updated. Blood 09/21/2023 11:1 4 AM EDT 09/21/2023 11:30 AM EDT Narrative Resulting Agency Comment Spec In Lab Micha Givens Jr., MD CHEMISTRY ORDERABLES Performing Organization Address [facility] Co de Phone Number [facility] [place] [address] * Uric acid (09/21/2023 11:14 AM EDT) Uric Acid 5.1 3.5 - 8.5 mg/dL [facility] Blood 09/21/2023 11:1 4 AM EDT 09/21/2023 11:30 AM EDT Narrative Resulting Agency Comment Spec In Lab Micha Givens Jr., MD CHEMISTRY ORDERABLES Performing Organization Address [facility] de Phone Number [facility] [place] [address] * Calcium, Ionized, Serum (09/21/2023 11:14 AM EDT) Ionized Calcium 1.25 1.15 - 1.33 mmol/L [facility] Comment: Note: Total bilirubin higher than 20 mg/dL may lead to falsely low ionized calcium. This test has not been cleared by the [place] FDA. Performance characteristics of this test were determined by [facility] in accordance with CLIA requirements. This laboratory is qualified under CLIA to perform high-complexity testing. Blood 09/21/2023 11:1 4 AM EDT 09/21/2023 11:30 AM EDT Narrative Resulting Agency Comment Spec In Lab Micha Givens Jr., MD CHEMISTRY ORDERABLES Performing Organization Address [facility] Co de Phone Number [facility] [place] [address] * Toxoplasma Antibody, IgM (09/21/2023 11:14 AM EDT) Toxoplasma Antibody IgM Negative Negative [facility] Blood 09/21/2023 11:1 4 AM EDT 09/21/2023 1:04 PM EDT Narrative Resulting Agency Comment Spec In Lab Micha Givens Jr., MD IMMUNOLOGY ORDERABLE S [facility] [place] [address] * Toxoplasma Antibody, IgG (09/21/2023 11:14 AM EDT) Toxoplasma Antibody IgG Negative Negative [facility] Blood 09/21/2023 11:1 4 AM EDT 09/21/2023 1:04 PM EDT Narrative Resulting Agency Comment Spec In Lab Micha Givens Jr., MD IMMUNOLOGY ORDERABLE S Performing Organization Address [facility]/ZIP Co de Phone Number [facility] [place] [address] * PSA Screen (09/21/2023 11:14 AM EDT) PSA Screen 0.03 0.00 - 4.00 ng/mL [facility] Comment: PLEASE NOTE: The above [...] Jr., MD CHEMISTRY ORDERABLES Performing Organization Address City/[facility]/ZIP Co de Phone Number [facility] [place] [address] * Phosphorus (09/21/2023 11:14 AM EDT) Phosphorus 2.9 2.5 - 4.5 mg/dL [facility] Blood 09/21/2023 11:1 4 AM EDT 09/21/2023 11:30 AM EDT Narrative Resulting Agency Comment Spec In Lab Micha Givens Jr., MD CHEMISTRY ORDERABLES [facility] [place] [address] * Magnesium (09/21/2023 11:14 AM EDT) Pathologist [facility] Magnesium 0.80 0.69 - 1.07 mmol/L [facility] Blood 09/21/2023 11:1 4 AM EDT 09/21/2023 11:30 AM EDT Narrative Resulting Agency Comment Spec In Lab Micha Givens Jr., MD CHEMISTRY ORDERABLES Performing Organization Address City/[facility]/ZIP Co de Phone Number [facility] [place] [address] * Type and screen ([facility] [place]/CGP/MARCELINA) (09/21/2023 11:14 AM EDT) [facility] ABORH Type O NEGATIVE [facility] Patient BB History Not Found [facility] Expires at 1919 on: 09/24/2023 [facility] Ab Screen Interp Negative [facility] Blood 09/21/2023 11:1 4 AM EDT 09/21/2023 11:14 AM EDT Narrative [facility] - 09/21/2023 11:14 AM EDT This Type and Screen result is only valid at the [facility] [place] [facility] Resulting Agency Comment Spec In Lab Micha Givens Jr., MD BLOOD BANK LAB ORDER DUONG [facility] [place] [address] * Varicella zoster Antibody, IgG (09/21/2023 11:14 AM EDT) Varicella Zoster Antibody IgG Positive Positive [facility] Comment: A positive result for this assay is considered to be an indicator of positive immune status. Blood 09/21/2023 11:1 4 AM EDT 09/21/2023 1:04 PM EDT Narrative Resulting Agency Comment Spec In Lab Micha Givens Jr., MD IMMUNOLOGY ORDERABLE S Performing Organization Address [facility]/ZIP Co de Phone Number [facility] [place] [address] * HSV 1 and 2 IgG Antibodies (09/21/2023 11:14 AM EDT) HSV Type 1 Ab, IgG Negative Negative [facility] HSV Type 2 Ab, IgG Negative Negative [facility] Blood 09/21/2023 11:1 4 AM EDT 09/21/2023 1:04 PM EDT Narrative Resulting Agency Comment Spec In Lab Micha Givens Jr., MD IMMUNOLOGY ORDERABLE S Performing Organization Address [facility] Co de Phone Number [facility] [place] [address] * (ABNORMAL) Alton-Dominguez Virus Antibodies (09/21/2023 11:14 AM EDT) EBV (VCA) IgG Ab Positive(A) Negative M [facility] EBV (VCA) IgM Ab Negative Negative [facility] Y [facility] EBNA Antibodies Positive(A) Negative [facility] EBV Interpretation Past EBV infection. [facility] Comment: In most populations, at [...] IMMUNOLOGY ORDERABLE S Performing Organization Address [facility]/ZIP Co de Phone Number [facility] [place] [address] * CMV Antibody, IgM (09/21/2023 11:14 AM EDT) CMV IgM Negative Negative [facility] Blood 09/21/2023 11:1 4 AM EDT 09/21/2023 1:04 PM EDT Narrative Resulting Agency Comment Spec In Lab Micha Givens Jr., MD IMMUNOLOGY ORDERABLE S Performing Organization Address [facility] Co de Phone Number [facility] [place] [address] * CMV Antibody, IgG (09/21/2023 11:14 AM EDT) CMV IgG Negative Negative [facility] Blood 09/21/2023 11:1 4 AM EDT 09/21/2023 1:04 PM EDT Narrative Resulting Agency Comment Spec In Lab Micha Givens Jr., MD IMMUNOLOGY ORDERABLE S Performing Organization Address [facility] Co de Phone Number [facility] [place] [address] * Urinalysis with reflex Culture (09/21/2023 11:11 AM EDT) Glucose, Urine Dipstick Negative Negative mg/dL [facility] Protein, Urine Dipstick Negative Negative mg/dL [facility] Bilirubin, Urine Dipstick Negative Negative mg/dL [facility] Comment: Clinical correlation required for positive Urine Bilirubin results as false positive may occur with some drugs and drug related products. If a false positive is suspected a serum total bilirubin should be considered if clinically indicated. Urobilinogen, Urine Dipstick Normal Normal mg/dL [facility] pH, Urn (dipstick) 6.5 5.0 - 8.0 [facility] Blood, Urine Dipstick Negative Negative mg/dL [facility] Ketone, Urine Dipstick Negative Negative mg/dL [facility] Nitrite, Urine Dipstick Negative Negative [facility] Leukocytes, Urine Dipstick Negative Negative [facility] Appearance, Urine Dipstick Clear Clear [facility] Specific [place] Urine Automated 1.009 1.005 - 1.030 [facility] Color, Urine Dipstick Yellow Yellow [facility] Reflex to Culture No [facility] Clean Catch Urine 09/21/2023 11:11 AM EDT 09/21/2023 11:33 AM EDT Narrative Resulting Agency Comment Spec In Lab Micha Givens Jr., MD URINE ORDERABLES Performing Organization Address City/State/[facility] Co de Phone Number [facility] [place] [address] documented in this encounter Visit Diagnoses Diagnosis [...] unspecified documented in this encounter Care Teams Printed Circuit Layout Taper Relationship Specialty Start Date End Date Frederick Meade MD [address] [place] [address] PCP - General Family Medicine 11/29/17 documented as of this encounter
--- OUTSIDE RECORDS SUMMARY | 2023-10-11 03:39 | XMS_ITS | Encounter Summary ---
Author Organization [facility] [place] [address] Care Team Providers Care Tap Grinder Name Role Phone Frederick Meade MD Primary Care Provider +1 [phone] Encounter Details Date Type Department Care Team (Late st Contact Info) Description 09/20/2023 Orders Only Hematology [place] [address] Micha Givens Jr., MD [facility] DR [place] [address] Diffuse large B-cell lymphoma of lymph nodes [...] AM EDT Infusion Hematology Oncology at [address] [address] 10/17/2023 1:00 PM EDT TH Visit (TeleHealth) Hematology/Oncology at [address] [phone] Adrianne Ramon MD [facility] [place] [address] Yael Merlos, KARLA [facility] DR [place] [address] 10/17/2023 1:30 PM EDT Infusion Hematology Oncology at [address] [address] 11/14/2023 9:30 AM EDT Office Visit Hematology/Oncology at [address] [address] Adrianne Ramon MD [facility] [place] [address] Yael Merlos APRN [facility] DR [place] [address] 11/14/2023 10:00 AM EDT Infusion Hematology Oncology at [address] [address] documented as of this encounter Results * (ABNORMAL) Lactate Dehydrogenase (09/21/2023 11:14 AM EDT) Lactate Dehydrogenase 426(H) 110 - 220 unit/L [facility] Blood 09/21/2023 11:1 4 AM EDT 09/21/2023 11:30 AM EDT Narrative Resulting Agency Comment Spec In Lab Micha Givens Jr., MD CHEMISTRY ORDERABLES Performing Organization Address City/State/[facility] Co de Phone Number [facility] [place] [address] * (ABNORMAL) Comprehensive metabolic panel (non-fasting) (09/21/2023 11:14 AM EDT) Glucose 326(H) 65 - 199 mg/dL [facility] Comment:Diabetes: >=200 mg/d L plus symptoms Blood Urea Nitrogen 26(H) 10 - 20 mg/dL [facility] Creatinine 1.16 0.80 - 1.50 mg/dL [facility] Sodium 138 135 - 145 mmol/L [facility] Potassium 4.0 3.5 - 5.0 mmol/L [facility] Comment: Please note: ??Patients with WBC >100,000 may have falsely elevated Potassium levels. ??For accurate Potassium quantification in these patients send serum separator tube (gold top) for subsequent determinations. ??Contact the Clinical Chemistry Laboratory if there are any questions. Chloride 103 98 - 107 mmol/L [facility] Carbon Dioxide 21(L) 22 - 31 mmol/L [facility] Anion Gap 14 5 - 15 mmol/L [facility] Calcium 9.5 8.5 - 10.5 mg/dL [facility] Protein, Total 6.3 6.1 - 8.0 g/dL [facility] Albumin 3.9 3.2 - 5.2 g/dL [facility] Aspartate Aminotransferase 54(H) 0 - 39 unit/L [facility] Alanine Aminotransferase 72(H) 0 - 55 unit/L [facility] Alkaline Phosphatase 202(H) 40 - 130 unit/L [facility] Bilirubin, Total 0.4 0.2 - 1.3 mg/dL [facility] Est Glomerular Filtration Rate 66 >=60 mL/min/1. 73 m?? [facility] Comment: This patient's estimated [...] Lab Micha Givens Jr., MD CHEMISTRY ORDERABLES [facility] [place] [address] documented in this encounter Visit Diagnoses Diagnosis Diffuse large B-cell lymphoma of lymph nodes of multiple regions documented in this encounter Care Teams Tap Grinder Relationship Specialty Start Date End Date Frederick Meade MD [address] [place] [address] PCP - General Family Medicine 11/29/17 documented as of this encounter
--- OUTSIDE RECORDS SUMMARY | 2023-10-11 03:39 | XMS_ITS | Encounter Summary ---
Author Organization [facility] Address [facility] [place] [address] Care Team Providers Care Blood Donor Recruiter Supervisor Name Role Phone Frederick Meade MD Primary Care Provider [phone] Encounter Details Date Type Department Care Team (Late st Contact Info) Description 09/12/2023 Telephone Hematology/Oncology at [address] [address] Adrianne Ramon MD [facility] DR HEMATOLOGY [place] [address] Social History Tobacco Use Types Packs/Day Years [...] AM EDT Infusion Hematology Oncology at [address] [address] 10/17/2023 1:00 PM EDT TH Visit (TeleHealth) Hematology/Oncology at [address] [phone] Adrianne Ramon MD [facility] HEMATOLOGY [place] [address] Yael Merlos, KARLA [facility] [place]EMATOLOGY [place] [address] 10/17/2023 1:30 PM EDT Infusion Hematology Oncology at [address] [address] 11/14/2023 9:30 AM EDT Office Visit Hematology/Oncology at [address] [address] Adrianne Ramon MD [facility] HEMATOLOGY [place] [address] Yael Merlos APRN [facility] DR HEMATOLOGY [place] [address] 11/14/2023 10:00 AM EDT Infusion Hematology Oncology at [address] [phone] documented as of this encounter Visit Diagnoses Diagnosis Diffuse large B-cell lymphoma of lymph nodes of multiple regions documented in this encounter Care Teams Blood Donor Recruiter Supervisor Relationship Specialty Start Date End Date Frederick Meade MD [address] [place], [place] [address] PCP - General Family Medicine 11/29/17 documented as of this encounter
--- OUTSIDE RECORDS SUMMARY | 2023-10-11 03:39 | XMS_ITS | Encounter Summary ---
Author Organization [facility] [place] [address] Care Team Providers Care Supervisor Metal Cans Name Role Phone Frederick Meade MD Primary Care Provider [phone] Encounter Details Date Type Department Care Team [...] AM EDT Infusion Hematology Oncology at [address] [address] 10/17/2023 1:00 PM EDT TH Visit (TeleHealth) Hematology/Oncology at [address] [address] Adrianne Ramon MD [facility] [place] [address] Yael Merlos APRN [facility] [place] [address] 10/17/2023 1:30 PM EDT Infusion Hematology Oncology at [address] [address] 11/14/2023 9:30 AM EDT Office Visit Hematology/Oncology at [address] [address] Adrianne Ramon MD [facility] [place] [address] Yael Merlos APRN [facility] [place] [address] 11/14/2023 10:00 AM EDT Infusion Hematology Oncology at [address] [phone] documented as of this encounter Visit Diagnoses Not on filedocumented in this encounter Care Teams Supervisor Metal Cans Relationship Specialty Start Date End Date Frederick Meade MD [address] [place] [address] PCP - General Family Medicine 11/29/17 documented as of this encounter
--- OUTSIDE RECORDS SUMMARY | 2023-10-11 03:39 | XMS_ITS | Encounter Summary ---
[place] [address] Care Team Providers Care Granular Operator Name Role Phone Frederick Meade MD Primary Care Provider [phone] Encounter Details Date Type Department Care Team (Late st Contact Info) Description 03/15/2023 Orders Only Radiology at [facility] [place] [address] Aaron Husain MD [facility] INTERVENTIONAL [place] [address] Social History Tobacco Use Types Packs/Day Years [...] IR Mediport Placement 10/17/2022 Gail Jha PA [facility] INTERVENTIONL RAD TONSILLECTOMY 1958 Medications: Current [...] Not on file Occupational History 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, 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 Tobacco Use Smoking status: Former Packs/day: [...] AM EDT Infusion Hematology Oncology at [address] [address] 10/17/2023 1:00 PM EDT TH Visit (TeleHealth) Hematology/Oncology at [address] [address] Adrianne Ramon MD [facility] HEMATOLOGY [place] [address] Yael Merlos, [facility] HEMATOLOGY [place] [address] 10/17/2023 1:30 PM EDT Infusion Hematology Oncology at [address] [phone] 11/14/2023 9:30 AM EDT Office Visit Hematology/Oncology at [address] [phone] Adrianne Ramon MD [facility] HEMATOLOGY [place] [address] Yael Merlos [facility] HEMATOLOGY [place] [address] 11/14/2023 10:00 AM EDT Infusion Hematology Oncology at [address] [phone] documented as of this encounter Visit Diagnoses Not on filedocumented in this encounter Care Teams Granular Operator Relationship Specialty Start Date End Date Frederick Meade MD [address] [place] [address] [address] [place] [address] PCP - General Family Medicine 11/29/17 documented as of this encounter
--- OUTSIDE RECORDS SUMMARY | 2023-10-11 03:39 | XMS_ITS | Encounter Summary ---
Author Organization [facility] [place] [address] Care Team Providers Care Fishery Division Chief Name Role Phone Frederick Meade MD Primary Care Provider [phone] Encounter Details Date Type Department Care Team [...] AM EDT Infusion Hematology Oncology at [address] [address] 10/17/2023 1:00 PM EDT TH Visit (TeleHealth) Hematology/Oncology at [address] [address] Adrianne Ramon MD [facility] HEMATOLOGY [place] [address] Yael Merlos APRN [facility] HEMATOLOGY [place] [address] 10/17/2023 1:30 PM EDT Infusion Hematology Oncology at [address] [address] 11/14/2023 9:30 AM EDT Office Visit Hematology/Oncology at [address] [address] Adrianne Ramon MD [facility] HEMATOLOGY [place] [address] Yael Merlos APRN [facility] HEMATOLOGY [place] [address] 11/14/2023 10:00 AM EDT Infusion Hematology Oncology at [address] [address] documented as of this encounter Visit Diagnoses Not on filedocumented in this encounter Care Teams Fishery Division Chief Relationship Specialty Start Date End Date Frederick Meade MD [address] [place] [address] PCP - General Family Medicine 11/29/17 documented as of this encounter
--- OUTSIDE RECORDS SUMMARY | 2023-10-11 03:39 | XMS_ITS | Encounter Summary ---
Author Organization [facility] Address [place] [address] Care Team Providers Care Emergency Medcl Emt Name Role Phone Frederick Meade MD Primary Care Provider [phone] [phone] Reason for Visit * Reason Comments Chemotherapy * Treatment/Therapy Plan Authorization (Routine) - Authorized Specialty Diagnoses / Procedures Referred By Contac t Referred To Contact Hematology and Oncology Diagnoses Diffuse large B-cell lymphoma of lymph nodes of multiple regions Adrianne Ramon MD [facility] [address] [place] [address] Stj Hem Onc Infusion [address] [place] [phone] Referral ID Status Reason Start Date Expiration Date V isits Requested Visits Authorized [id number] Authorized 09/12/2023 09/11/2024 99 99 Encounter Details Date Type Department Care Team (Late st Contact Info) Description 09/19/2023 8:00 AM EDT Infusion Hematology Oncology at [address] [address] Diffuse large B-cell lymphoma of [...] treatment. OBJECTIVE LAB DATA: completed today at [facility] Pre administration: Chemotherapy orders independently verified [...] Infusion Hematology Oncology at [address] [address] 10/17/2023 1:00 PM EDT TH Visit (TeleHealth) Hematology/Oncology at [address] [address] Adrianne Ramon MD [facility] [place] [address] Yael Merlos APRN [facility] [place] [address] 10/17/2023 1:30 PM EDT Infusion Hematology Oncology at [address] [address] 11/14/2023 9:30 AM EDT Office Visit Hematology/Oncology at [address] [address] Adrianne Ramon MD [facility] [place] [address] Yael Merlos APRN [facility] [address] [place] [address] 11/14/2023 10:00 AM EDT Infusion Hematology Oncology at [address] [phone] documented as of this encounter [...] mL/hr documented in this encounter Care Teams Emergency Medcl Emt Relationship Specialty Start Date End Date Frederick Meade MD [address] [place] [address] [address] [place] [address] PCP - General Family Medicine 11/29/17 documented as of this encounter
--- OUTSIDE RECORDS SUMMARY | 2023-10-11 03:39 | XMS_ITS | Encounter Summary ---
[place] [address] Care Team Providers Care Rib Stiffener And Heel Dipper Name Role Phone Frederick Meade MD Primary Care Provider [phone] Reason for Referral * Diagnostic Test (Routine) - Closed Specialty Diagnoses / Procedures Referred By Contac t Referred To Contact Radiology Diagnoses Diffuse large B-cell lymphoma of lymph nodes of multiple regions Skin nodule Procedures NM PET CT Standard Plus Extremities and Head Adrianne Ramon MD [facility] [place] [address] [place] [address] Referral ID Status Reason Start Date Expiration Date V isits Requested Visits Authorized [id number] Closed Specialty Service Requested 08/22/2023 02/21/2025 1 1 Reason for Visit * Diagnostic Test (Routine) - Closed Specialty Diagnoses / Procedures Referred By Contac t Referred To Contact Radiology Diagnoses Diffuse large B-cell lymphoma of lymph nodes of multiple regions Skin nodule Procedures NM PET CT Standard Plus Extremities and Head Adrianne Ramon MD [facility] [place] [address] [place] [address] Referral ID Status Reason Start Date Expiration Date V isits Requested Visits Authorized [id number] Closed Specialty Service Requested 08/22/2023 02/21/2025 1 1 Encounter Details Date Type Department Care Team (Jaciel teixeira Contact Info) Description 09/06/2023 12:59 PM EDT Hospital Encounter [place] [address] Adrianne Ramon MD [facility] [place] [address] Diffuse large B-cell lymphoma of lymph nodes [...] AM EDT Infusion Hematology Oncology at [address] [address] 10/17/2023 1:00 PM EDT TH Visit (TeleHealth) Hematology/Oncology at [address] [address] Adrianne Ramon MD [facility] [place] [address] Yael Merlos, [employer] [facility] [place] [address] 10/17/2023 1:30 PM EDT Infusion Hematology Oncology at [address] [address] 11/14/2023 9:30 AM EDT Office Visit Hematology/Oncology at [address] [phone] Adrianne Ramon MD [facility] [place] [address] Yael Merlos APRN [facility] [place] [address] 11/14/2023 10:00 AM EDT Infusion Hematology Oncology at [address] [phone] documented as of this encounter Procedures Procedure Name Priority Date/Time Associated Diagnosis Comments NM PET CT STANDARD PLUS EXTREMITIES AND HEAD Routine 09/06/2023 2:45 PM EDT Diffuse large B-cell lymphoma of lymph nodes of multiple regions Skin nodule documented in this encounter Results * NM PET CT Standard Plus Extremities and Head (09/06/2023 2:45 PM EDT) Pathologist [email or web address] WORKSTATION ID [id number] DH RAD Anatomical Region Laterality Modality Positron [...] questions please contact the health home care coordinator that requested your imaging first. ? Electronically signed by: Rohan Henley MD, [facility] ([phone]), at 09/10/2023 11:18 AM Narrative 09/10/2023 11:18 [...] unspecified. TECHNIQUE: Procedure: Following IV injection of 01-umuxfd-8-deoxyglucose (FDG) a standard uptake of approximately 60 [...] unspecified. TECHNIQUE: Procedure: Following IV injection of 20-gvzdmk-7-deoxyglucose(FDG) a standard uptake of approximately 60 minutes, [...] have questions please contactthe health home care coordinator that requested your imaging first. Electronically signed by: Rohan Henley MD, [facility]([phone]), at 09/10/2023 11:18 AM Adrianne Ramon MD [...] Arm documented in this encounter Care Teams Rib Stiffener And Heel Dipper Relationship Specialty Start Date End Date Frederick Meade MD [address] [place] [address] PCP - General Family Medicine 11/29/17 documented as of this encounter
--- OUTSIDE RECORDS SUMMARY | 2023-10-11 03:39 | XMS_ITS | Encounter Summary ---
Author Organization [facility] Address [facility] [place] [address] Care Team Providers Care Orthodontic Technician Assistant Name Role Phone Frederick Meade MD Primary Care Provider [phone] [phone] Encounter Details Date Type Department Care Team (Late st Contact Info) Description 09/19/2023 Notes Only Hematology/Oncology at [address] [phone] Shelley Cason, [facility] OFFICE OF CARE MANAGEMENT Social [...] are managing otherwise. Reminded them of the [facility] if they needs to apply for [...] did not identify any specific needs today. AUDITOR TAX will follow for support and resources. Brief assessment Supportive Counseling Financial resources documented in this encounter Plan of Treatment Upcoming Encounters Date Type Department Care Team (Late st Contact Info) Description 10/11/2023 8:30 AM EDT Infusion Hematology Oncology at [address] [address] 10/17/2023 1:00 PM EDT TH Visit (TeleHealth) Hematology/Oncology at [address] [address] Adrianne Ramon MD [facility] HEMATOLOGY [place] [address] Yael Merlos, [facility] HEMATOLOGY [place] [address] 10/17/2023 1:30 PM EDT Infusion Hematology Oncology at [address] [address] 11/14/2023 9:30 AM EDT Office Visit Hematology/Oncology at [address] [phone] Adrianne Ramon MD [facility] HEMATOLOGY [place] [address] Yael Merlos, [facility] HEMATOLOGY [place] [address] 11/14/2023 10:00 AM EDT Infusion Hematology Oncology at [address] [phone] documented as of this encounter Visit Diagnoses Not on filedocumented in this encounter Care Teams Orthodontic Technician Assistant Relationship Specialty Start Date End Date Frederick Meade MD [address] [place] [address] [address] [place] [address] PCP - General Family Medicine 11/29/17 documented as of this encounter
--- OUTSIDE RECORDS SUMMARY | 2023-10-11 03:39 | XMS_ITS | Encounter Summary ---
Author Organization [facility] [place] [address] Care Team Providers Care Electrical Laboratory Technician Name Role Phone Frederick Meade MD Primary Care Provider [phone] Encounter Details Date Type Department Care Team [...] AM EDT Infusion Hematology Oncology at [address] [address] 10/17/2023 1:00 PM EDT TH Visit (TeleHealth) Hematology/Oncology at [address] [address] Adrianne Ramon MD [facility] [place] [address] Yael Merlos APRN [facility] [place] [address] 10/17/2023 1:30 PM EDT Infusion Hematology Oncology at [address] [address] 11/14/2023 9:30 AM EDT Office Visit Hematology/Oncology at [address] [address] Adrianne Ramon MD [facility] [place] [address] Yael Merlos APRN [facility] [place] [address] 11/14/2023 10:00 AM EDT Infusion Hematology Oncology at [address] [phone] documented as of this encounter Visit Diagnoses Not on filedocumented in this encounter Care Teams Electrical Laboratory Technician Relationship Specialty Start Date End Date Frederick Meade MD [address] [place] [address] PCP - General Family Medicine 11/29/17 documented as of this encounter
--- OUTSIDE RECORDS SUMMARY | 2023-10-11 03:39 | XMS_ITS | Encounter Summary ---
Author Organization [facility] [address] Care Team Providers Care Recreation Attendant Supervisor Name Role Phone Frederick Meade MD Primary Care Provider +1 -[phone] Reason for Referral * Diagnostic Test (Routine) - Closed Specialty Diagnoses / Procedures Referred By Contac t Referred To Contact Radiology Diagnoses Diffuse large B-cell lymphoma of lymph nodes of multiple regions Skin nodule Procedures IR Biopsy Lymph Node (Chest/Abdomen/Pelvis) IR Biopsy Lymph Node (Head/Neck) Adrianne Ramon MD [facility] [place] [address] [place] [address] Referral ID Status Reason Start Date Expiration Date V isits Requested Visits Authorized [id number] Closed Specialty Service Requested 08/22/2023 02/21/2025 1 1 Reason for Visit * Diagnostic Test (Routine) - Closed Specialty Diagnoses / Procedures Referred By Contac t Referred To Contact Radiology Diagnoses Diffuse large B-cell lymphoma of lymph nodes of multiple regions Skin nodule Procedures IR Biopsy Lymph Node (Chest/Abdomen/Pelvis) IR Biopsy Lymph Node (Head/Neck) Adrianne Ramon MD [facility] [place] [address] [facility] [place] [address] Referral ID Status Reason Start Date Expiration Date V isits Requested Visits Authorized [id number] Closed Specialty Service Requested 08/22/2023 02/21/2025 1 1 Encounter Details Date Type Department Care Team (Late st Contact Info) Description 09/06/2023 10:15 AM EDT - 09/06/2023 12:58 PM EDT Hospital [place] [address] Adrianne Ramon MD [facility] [address] [place] [address] Diffuse large B-cell lymphoma of [...] Caldwell RN - 09/06/2023 9:38 AM EDT [facility] Vascular and Interventional Radiology Lymph node biopsy [...] be reported to you by your primary caregivers non medical or the clinician who ordered the biopsy. Please do not call us for results as we will not have them. If you have not been contacted by your clinician within 5 business days you should call that officefor further information. When to call the Interventional Radiology Department: Please call with any questions or concerns. If it is during regular office hours, please call [phone]. If it is after regular office hours, or on weekends or holidays, please call [phone] and ask to speak to the Plaster Block Layer early childhood education specialist for Interventional Radiology. ---- documented in [...] 12:21 PM EDT [facility] NURSING DATABASE Name: Ceho Freire Date of : 1950 AGE: 73 y.o. Address: [address] [place] [address] [address] [facility] [address] Phone: [phone] (home) Mobile: Telephone Information: Referring Provider: Adrianne Ramon REASON FOR VISIT: Order Questions Answers Where will study be performed? [facility] Radiology [120] To be scheduled Ordering [...] Questions Answers Where will study be performed? [facility] Radiology [120] To be scheduled Ordering [...] IR Mediport Placement 10/17/2022 Gail Jha PA [facility] INTERVENTIONL RAD IR MEDIPORT REMOVAL 03/29/2023 IR Mediport Removal 03/29/2023 Ole Arvizu MD [facility] INTERVENTIONL RAD TONSILLECTOMY 1958 Social history [...] AM EDT Infusion Hematology Oncology at [address] [address] 10/17/2023 1:00 PM EDT TH Visit (TeleHealth) Hematology/Oncology at [address] [address] Adrianne Ramon MD [facility] [place] [address] Yael Merlos, MOLD HOLDER [facility] [place] [address] 10/17/2023 1:30 PM EDT Infusion Hematology Oncology at [address] [address] 11/14/2023 9:30 AM EDT Office Visit Hematology/Oncology at [address] [address] Adrianne Ramon MD [facility] [place] [address] Yael Merlos, [facility] [place] [address] 11/14/2023 10:00 AM EDT Infusion Hematology Oncology at [address] [address] Pending Results Name Type Priority Associated Diagnoses Date /Time AFB culture Microbiology Routine 09/06/2023 11:25 AM EDT documented as of this [...] (09/06/2023 12:28 PM EDT) Flow Cytometry Report [id number] ? Location: [facility] The signing pathologist has (i) examined the relevant preparation(s) for the specimen(s) and (ii) rendered or confirmed the diagnosis(es). . ?Flow Cytometry DIAGNOSIS ? 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 See comment. Electronically signed by: ?Dana OCASIO, Filemon Verified: ??09/10/2023 15:05 ??Hematopathologist Performed at: ??-[facility] Dept. of Pathology, [place] [address] Air And Water Filler: Katherine Lopez MD, AP, ??CLIA Certificate: [id number] DISCUSSION The T-lymphocytes , B- lymphocytes and [...] by the Clinical Flow Cytometry Laboratory at [facility]. It has not been cleared or [...] high complexity clinical laboratory testing. SPECIMEN PROCESSING [id number] Cells for immunophenotypic analysis were derived from [...] EDT Micha Pearl MD PATHOLOGY/CYTOLOGY O RDERABLES [facility] [place] [address] * Immunophenotyping Flow Cytometry (09/06/2023 12:28 PM EDT) Immunophenotyping Flow See Comment [facility] Comment: When completed by the Pathologist, the Flow Cytometry Report ([id number]) will display under the Pathology Results section within eDH. Other 09/06/2023 12:2 8 PM EDT 09/06/2023 12:47 PM EDT Narrative Resulting Agency Comment Spec In Lab Micha Pearl MD HEMATOLOGY ORDERABLE S [facility] [place] [id number] * Flow Cytometry Report (09/06/2023 11:40 AM EDT) Flow Cytometry Report [id number] ? Location: [facility] The signing pathologist has (i) examined the relevant preparation(s) for the specimen(s) and (ii) rendered or confirmed the diagnosis(es). . ?Flow Cytometry DIAGNOSIS Flow cytometric diagnosis: ?? No ??B-cell population or phenotypically abnormal T-cell population is detected. Electronically signed by: ?Dana OCASIO, Filemon Verified: ??09/07/2023 15:52 ??Hematopathologist Performed at: ??-[facility] Dept. of Pathology, [place] [address] Air And Water Filler: Katherine Lopez MD, FCAP, ??CLIA Certificate: [id number] DISCUSSION Blasts based on CD45 expression and [...] 5, 7). There is no increase in OQ82-xdznyrab/CD3-n eg NK cells. Flow analysis is an ancillary study. A definite diagnosis requires correlation with the morphologic features of this process and if necessary, correlation with other ancillary studies like immunohistochemistr y, enzyme cytochemistry and/or cyto/ molecular genetics. This test was developed and its performance characteristics determined by the Clinical Flow Cytometry Laboratory at [facility]. It has not been cleared or [...] high complexity clinical laboratory testing. SPECIMEN PROCESSING [id number] Cells for immunophenotypic analysis were derived from left arm collection. CD45 vs side scatter gating was utilized to identify a lymphoid analysis region that comprises approximately 18-27% of all cells. The following markers were assessed: CD2, CD3, CD4, CD5, CD7, CD8, CD10, CD19, CD45, CD56, kappa light chain, and lambda light chain. CLINICAL INFORMATION [facility] LABORATORY 09/06/2023 11:4 0 AM EDT James Champion DO PATHOLOGY/CYTOLOGY O RDERABLES Performing Organization Address [facility]/[place] [address] * Immunophenotyping Flow Cytometry (09/06/2023 11:40 AM EDT) Immunophenotyping Flow See Comment [facility] Comment: When completed by the Pathologist, the Flow Cytometry Report ([id number]) will display under the Pathology Results section within eDH. Other 09/06/2023 11:4 0 AM EDT 09/06/2023 12:11 PM EDT Narrative Resulting Agency Comment Spec In Lab James Champion DO HEMATOLOGY ORDERABLE S Performing Organization Address City/[facility]/ZIP Co de Phone Number [facility] [place] [address] * chromo report acquired (09/06/2023 11:35 AM EDT) Cytogenetics Acquired Report Final Report ? [id number] Specimen Type: Fixed Tissue Specimen Condition: 1 [...] using dual-color, break-apart probes for BCL6/3q27 rearrangement ([employer] shows a signal pattern consistent with a BCL6 rearrangement in 0% of 100 cells. This is within the acceptable reference limits (0-7.4%). Thus, there is no evidence for BCL6/3q27 gene rearrangement. Interphase FISH analysis using dual-color, break-apart probes for MYC/8q24 rearrangement ([employer] shows 0% of 100 cells with a MYC rearrangement signal pattern. This is within acceptable reference limits (0-6.0%). Thus, there is no evidence for MYC/8q24 gene rearrangement. Interphase FISH analysis using dual-color, dual-fusion probes for MYC-IGH/t(8;14)(q2 4;q32) ([employer] shows 0% of 100 cells with a MYC-IGH rearrangement signal pattern. This is within acceptable reference limits (0-3.0%). Thus, there is no evidence for MYC-IGH/t(8;14) gene rearrangement. Interphase FISH analysis using dual-color, dual-fusion probes for CCND1-IGH/t(11;14) (q24;q32) ([employer] shows 0% of 100 cells with [...] its performance characteristics were determined by the [facility] ([facility]) Cytogenetics Laboratory as required by [...] the test? s accuracy and precision. The [facility] Cytogenetics Laboratory is certified under the CLIA? 88 as qualified to perform high complexity clinical laboratory testing. Chromosome alterations outside the regions complementary to these DNA FISH probes will not be detected. 09.20.23 (Electronic Signature) Verified By: Channing Ph.D., [facility], Tommy A Clinical Inspector Canned Food Reconditioning/Mol ecular Account Development Manager [facility] 09/06/2023 11:3 5 AM EDT 09/11/2023 8:57 AM EDT James Champion DO HEMATOLOGY ORDERABLE S [facility] [place] [address] * (ABNORMAL) Surgical Pathology Report (09/06/2023 11:35 AM EDT) Surgical Pathology Report [id number] ? Location: [facility] The signing pathologist has (i) examined [...] Filemon Verified: ??09/10/2023 18:38 ??Hematopathologist Performed at: ??-[facility] Dept. of Pathology, [place] [address] Air And Water Filler: Katherine Lopez MD, FCAP, ??CLIA Certificate: [id number] SYNOPTIC THIS RESULT REQUIRES PHYSICIAN/A.P.P. FOLLOW UP [...] lymphoid neoplasms . Blood . 2016. 127 (20):7256-8762. Rafael CP et al . Blood 103:275-282 [...] DO PATHOLOGY/CYTOLOGY O RDERABLES Performing Organization Address City/[facility] Co de Phone Number [facility] [place] [address] * Anaerobic Culture (09/06/2023 11:25 AM EDT) Anaerobic Culture No anaerobic organisms isolated [facility] Arm 09/06/2023 11:2 5 AM EDT 09/06/2023 12:21 PM EDT Comment:Left Arm Collection versus mass Narrative Resulting Agency Comment Spec In Lab James Champion DO MICROBIOLOGY - GENER AL ORDERABLES Performing Organization Address City/[facility]/ZIP Co de Phone Number [facility] [place] [address] * Tissue culture (09/06/2023 11:25 AM EDT) [...] - GENER AL ORDERABLES Performing Organization Address [facility] Co de Phone Number [facility] [place] [address] * Calcofluor White Stain (09/06/2023 11:25 AM EDT) Calcofluor Stain Calcofluor White Preparation: Negative [facility] Other 09/06/2023 11:2 5 AM EDT 09/06/2023 12:21 PM EDT Comment:Left Arm Collection versus Mass Narrative Resulting Agency Comment Spec In Lab James Champion DO MICROBIOLOGY - GENER AL ORDERABLES Performing Organization Address [facility] Co de Phone Number [facility] [place] [address] * Fungus culture (09/06/2023 11:25 AM EDT) Fungus Culture No Fungus isolated [facility] Other 09/06/2023 11:2 5 AM EDT 09/06/2023 12:21 PM EDT Comment:Left Arm Collection versus Mass Narrative Resulting Agency Comment Spec In Lab James Champion DO MICROBIOLOGY - GENER AL ORDERABLES Performing Organization Address City/[facility]/ZIP Co de Phone Number [facility] [place] [address] * Specimen to Pathology (09/06/2023 11:20 AM EDT) AP Specimen 09/06/2023 11:2 0 AM EDT 09/06/2023 11:20 AM EDT Narrative [facility] - 09/06/2023 11:20 AM EDT Specimen requisition ordered. ??Separate Pathology report to follow James Champion DO PATHOLOGY/CYTOLOGY O RDLOGAN Performing Organization Address [facility] [place] [address] * Specimen to Pathology (09/06/2023 10:43 AM EDT) AP Specimen 09/06/2023 10:4 3 AM EDT 09/06/2023 10:43 AM EDT Narrative [facility] - 09/06/2023 10:43 AM EDT Specimen requisition ordered. ??Separate Pathology report to follow Micha Pearl MD PATHOLOGY/CYTOLOGY O COLIN Performing Organization Address [facility] Co de Phone Number [facility] [place] [address] * Cytopathology Non-Gynecological (09/06/2023 10:41 AM EDT) AP Specimen 09/06/2023 10:4 1 AM EDT 09/06/2023 10:41 AM EDT Narrative [facility] - 09/06/2023 10:41 AM EDT Specimen requisition ordered. ??Separate Pathology report to follow Micha Pearl MD PATHOLOGY/CYTOLOGY O COLIN Performing Organization Address [facility] [place] [address] documented in this encounter Visit Diagnoses Diagnosis [...] mg documented in this encounter Care Teams Recreation Attendant Supervisor Relationship Specialty Start Date End Date Frederick Meade MD [address] [place] [address] PCP - General Family Medicine 11/29/17 documented as of this encounter
--- OUTSIDE RECORDS SUMMARY | 2023-10-11 03:39 | XMS_ITS | Encounter Summary ---
Author Organization [facility] Address [facility] [place] [address] Care Team Providers Care Software Licensing Executive Name Role Phone Frederick Meade MD Primary Care Provider [phone] -[phone] Reason for Visit * Reason Onset Date Comments Other 09/13/2023 Financial paperw ork Encounter Details Date Type Department Care Team (Late st Contact Info) Description 09/13/2023 Telephone Hematology/Oncology at [address] [address] Colt Ardon, RN Other (Financial [...] Completed BMS Access Support forms faxed to [phone], fax confirmed. Copy of application and supporting financial docs scanned into media for reference. documented in this encounter Plan of Treatment Upcoming Encounters Date Type Department Care Team (Late st Contact Info) Description 10/11/2023 8:30 AM EDT Infusion Hematology Oncology at [address] [address] 10/17/2023 1:00 PM EDT TH Visit (TeleHealth) Hematology/Oncology at [address] [address] Adrianne Ramon MD [facility] HEMATOLOGY [place] [address] Yael Merlos APRN [facility] HEMATOLOGY [place] [address] 10/17/2023 1:30 PM EDT Infusion Hematology Oncology at [address] [phone] 11/14/2023 9:30 AM EDT Office Visit Hematology/Oncology at [address] [phone] Adrianne Ramon MD [facility] [place] [address] Yael Merlos APRN [facility] [place] [address] 11/14/2023 10:00 AM EDT Infusion Hematology Oncology at [address] [phone] documented as of this encounter Visit Diagnoses Not on filedocumented in this encounter Care Teams Software Licensing Executive Relationship Specialty Start Date End Date Frederick Meade MD [address] [place] [address] [address] [place] [address] PCP - General Family Medicine 11/29/17 documented as of this encounter
--- OUTSIDE RECORDS SUMMARY | 2023-10-11 03:39 | XMS_ITS | Encounter Summary ---
Author Organization [facility] [place] [address] Care Team Providers Care Carpenter Form Name Role Phone Frederick Meade MD Primary Care Provider +1 -[phone] Reason for Visit * Reason Comments Advice Only * Consultation (Routine) - Closed Specialty Diagnoses / Procedures Referred By Contac t Referred To Contact Hematology and Oncology Diagnoses Diffuse large B-cell lymphoma of lymph nodes of multiple regions Adrianne Ramon MD [facility] [place] [address] [facility] [address] [place] [address] Referral ID Status Reason Start Date Expiration Date V isits Requested Visits Authorized [id number] Closed Specialty Service Requested 09/12/2023 09/11/2024 1 1 Encounter Details Date Type Department Care Team (Late st Contact Info) Description 09/21/2023 9:30 AM EDT Office Visit Hematology [place] [address] iMcha Givens Jr., MD [facility] [address] [place] [address] Diffuse large B-cell lymphoma of lymph nodes [...] Diffuse Large [facility] for Chimeric Antigen Receptor (CAR) T-cell Therapy consideration. The patient comes to clinic with his , Claritza, and daughter, Sarath. HISTORY OF PRESENT ILLNESS: Th patient is a 73 year old male initially referred to Hematology in Sep 2022 by [facility] after presentation with a 4 week h/o of sinus swelling and then cervical adenopathy, such that he could not breathe normally. He was treated for presumed infection (presumed acute retropharyngeal abscess), [facility] ENT, with 2 biopsies done, one of the tonsil, and 1 needle biopsy of a right post cervical lymph node, and prednisone started, with noted response. Pathology from [email or web address] was c/w Large B-cell lymphoma (Double expresser). [...] and needle of cervical LN. 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 Not a . ETOH: Occasional (few beers per week) Smoking: Quit 1985. Approximately 83-weoh-nylw history HIPPA Contact Permission: Claritza and Cheo. [...] History Not Found T&S only valid at [facility] ABORH Recheck Order Order Placed ABORH [...] See comment. Electronically signed by: Dana OCASIO, [facility] Verified: 09/10/2023 15:05 Hematopathologist Performed at: -[facility] Dept. of Pathology, [place] [address] Manager Part: Katherine Lopez MD, FCAP, CLIA Certificate: [id number] DISCUSSION The T-lymphocytes , B- lymphocytes and [...] and BCL-2 protein (Double Expressor.) Flow cytometry ([id number]) supports this interpretation. FISH from [facility] No MYC rearrangement and no fusion of MYC and IGH was observed, CD3 (SP7, [employer]) Background T-cells CD20 (L26, [place]) diffusely positive in Neoplastic B-cells PAX-5 (1EW, [employer]) diffusely positive in Neoplastic B-cells CD10 (SP67, [place]) Negative BCL-6 (G/191E/A8, [place]) Positive MUM-1 (MUM1p, Dako) Positive Myc (Y69, [employer]) Positive BCL-2 Oncoprotein (124, [place]) Positive Ki67 (MIB-1) (K2, [employer]) Greater than 95% of cells in cycle Cyclin D1(SP4-R, [place]) Negative SAPPHIRE JOSE (ASN7542-K, [employer]ica) Negative. DIAGNOSTICS: 01/25/23 ECHO after C#5 [...] AM EDT Infusion Hematology Oncology at [address] [address] 10/17/2023 1:00 PM EDT TH Visit (TeleHealth) Hematology/Oncology at [address] [address] Adrianne Ramon MD [facility] [place] [address] Yael Merlos, TOGGLE PRESS OPERATOR [facility] HEMATOLOGY [place] [address] 10/17/2023 1:30 PM EDT Infusion Hematology Oncology at [address] [phone] 11/14/2023 9:30 AM EDT Office Visit Hematology/Oncology at [address] [phone] Adrianne Ramon MD [facility] [place] [address] Yael Merlos, [facility] [place] [address] 11/14/2023 10:00 AM EDT Infusion Hematology Oncology at [address] [phone] Scheduled Referrals Name Type Priority Associated Diagnoses [...] type documented in this encounter Care Teams Carpenter Form Relationship Specialty Start Date End Date Frederick Meade MD [address] [place] [address] [address] [place] [address] PCP - General Family Medicine 11/29/17 documented as of this encounter
--- OUTSIDE RECORDS SUMMARY | 2023-10-11 03:39 | XMS_ITS | Encounter Summary ---
Author Organization [facility] Address [facility] [place] [address] Care Team Providers Care Auto Finance Sales Rep Name Role Phone Frederick Meade MD Primary Care Provider [phone] Reason for Visit * Reason Onset Date Comments Follow-up 09/19/[address] obrien thru [facility] Encounter Details Date Type Department Care Team (Late st Contact Info) Description 09/19/2023 Telephone Hematology/Oncology at [address] [address] Polly Orellana, OSCAR Follow-up (Possible [...] - 09/19/2023 11:05 AM EDT Spoke with [employer] pt assistance foundation. Pt at present received revlimid with a copay of 157$ after getting $4000 thru [employer]. He is getting drug from [facility]. When next script is sent in if pt still has high copay and there is no funding we can call [employer] at [phone] fax [phone] and request assistance for pt again and they will resubmit the paper work they have on him for free drug. documented in this encounter Plan of Treatment Upcoming Encounters Date Type Department Care Team (Late st Contact Info) Description 10/11/2023 8:30 AM EDT Infusion Hematology Oncology at [address] [phone] 10/17/2023 1:00 PM EDT TH Visit (TeleHealth) Hematology/Oncology at [address] [phone] Adrianne Ramon MD [facility] [place] [address] Yael Merlos [facility] [place] [address] 10/17/2023 1:30 PM EDT Infusion Hematology Oncology at [address] [phone] 11/14/2023 9:30 AM EDT Office Visit Hematology/Oncology at [address] [phone] Adrianne Ramon MD [facility] [place] [address] Yael Merlos [facility] [place] [address] 11/14/2023 10:00 AM EDT Infusion Hematology Oncology at [address] [phone] documented as of this encounter Visit Diagnoses Not on filedocumented in this encounter Care Teams Auto Finance Sales Rep Relationship Specialty Start Date End Date Frederick Meade MD [address] [place] [address] PCP - General Family Medicine 11/29/17 documented as of this encounter
--- OUTSIDE RECORDS SUMMARY | 2023-10-11 03:39 | XMS_ITS | Encounter Summary ---
Author Organization [facility] [place] [address] Care Team Providers Care Rn Testing Name Role Phone Frederick Meade MD Primary Care Provider +1 [phone] Encounter Details Date Type Department Care Team (Latest Contact Info) Description 09/06/2023 9:48 AM EDT - 09/06/2023 10:14 AM EDT Hospital Encounter Hematology [place] [address] Diffuse large B-cell lymphoma of lymph nodes [...] AM EDT Infusion Hematology Oncology at [address] [phone] 10/17/2023 1:00 PM EDT TH Visit (TeleHealth) Hematology/Oncology at [address] [address] Adrianne Ramon MD [facility] HEMATOLOGY [place] [address] Yael Merlos APRN [facility] HEMATOLOGY AND [place] [address] 10/17/2023 1:30 PM EDT Infusion Hematology Oncology at [address] [phone] 11/14/2023 9:30 AM EDT Office Visit Hematology/Oncology at [address] [phone] Adrianne Ramon MD [facility] HEMATOLOGY [place] [address] Yael Merlos RV REPAIRER [facility] HEMATOLOGY [place] [address] 11/14/2023 10:00 AM EDT Infusion Hematology Oncology at [address] [address] documented as of this encounter Procedures Procedure [...] 10:12 AM EDT) Neutrophil % 64.9 % [facility] Neutrophil Absolute 4.20 1.70 - 6.10 x10(3)/ L [facility] Lymph % 14.1 % [facility] Lymphocytes Abs 0.9 0.9 - 3.2 x10(3)/ L [facility] Monocyte % 16.7 % [facility] Monocyte Abs 1.1(H) 0.3 - 0.9 x10(3)/ L [facility] Eos % 3.7 % [facility] Eosinophils Abs 0.2 0.0 - 0.4 x10(3)/ L [facility] Basophil % 0.3 % [facility] Baso Absolute 0.0 0.0 - 0.1 x10(3)/ L [facility] Immature Gran % 0.30 % [facility] Comment: Immature granulocytes(IG's)percentage and absolute count will include metamyelocytes, myelocytes, and promyelocytes. Blood smears from CBCs yielding IG's will be scanned manually for concordance. If this scan disagrees with the automated IG or if promyelocytes are noted, a manual differential will be performed. Immature Gran Absolute 0.02 0.00 - 0.04 x10(3)/ L [facility] Blood 09/06/2023 10:1 2 AM EDT 09/06/2023 10:16 AM EDT Narrative Resulting Agency Comment Spec In Lab Adrianne Ramon MD HEMATOLOGY ORDER DUONG [facility] [place] [address] * (ABNORMAL) Hemogram (09/06/2023 10:12 AM EDT) White Blood Cell 6.5 4.0 - 9.5 x10(3)/mc L [facility] Red Blood Cell 3.98(L) 4.58 - 5.54 x10(6)/mc L [facility] Hemoglobin 12.0(L) 13.7 - 16.5 g/dL [facility] Hematocrit 36.5(L) 40.5 - 48.5 % [facility] Mean Cell Volume 91.7 82.9 - 93.1 fL [facility] Mean Cell Hemoglobin 30.2 27.5 - 32.1 pg [facility] Mean Cell Hemoglobin Concentration 32.9 32.0 - 35.7 g/dL [facility] Platelet 145 145 - 357 x10(3)/mc L [facility] RDW Standard Deviation 48.4(H) 36.0 - 45.0 fL [facility] RDW coefficient of variation 14.4(H) 11.4 - 13.8 % [facility] Mean Platelet Volume 10.3 7.6 - 12.9 fL [facility] NRBC% auto 0.0 % [facility] NRBC Absolute 0.000 0.000 - 0.000 x10(3)/ L [facility] Blood 09/06/2023 10:1 2 AM EDT 09/06/2023 10:16 AM EDT Narrative Resulting Agency Comment Spec In Lab Adrianne Ramon MD HEMATOLOGY ORDER DUONG [facility] [place] [address] * (ABNORMAL) Lactate Dehydrogenase (09/06/2023 10:12 AM EDT) Lactate Dehydrogenase 251(H) 110 - 220 unit/L [facility] Blood 09/06/2023 10:1 2 AM EDT 09/06/2023 10:16 AM EDT Narrative Resulting Agency Comment Spec In Lab Adrianne Ramon MD CHEMISTRY ORDERA DANICAS [facility] [place] [address] * (ABNORMAL) Comprehensive metabolic panel (non-fasting) (09/06/2023 10:12 AM EDT) Glucose 170 65 - 199 mg/dL [facility] Comment:Diabetes: >=200 mg/d L plus symptoms Blood Urea Nitrogen 15 10 - 20 mg/dL [facility] Creatinine 1.07 0.80 - 1.50 mg/dL [facility] Sodium 143 135 - 145 mmol/L [facility] Potassium 3.8 3.5 - 5.0 mmol/L [facility] Comment: Please note: ??Patients with WBC >100,000 may have falsely elevated Potassium levels. ??For accurate Potassium quantification in these patients send serum separator tube (gold top) for subsequent determinations. ??Contact the Clinical Chemistry Laboratory if there are any questions. Chloride 107 98 - 107 mmol/L [facility] Carbon Dioxide 25 22 - 31 mmol/L [facility] Anion Gap 11 5 - 15 mmol/L [facility] Calcium 9.2 8.5 - 10.5 mg/dL [facility] Protein, Total 6.1 6.1 - 8.0 g/dL [facility] Albumin 3.7 3.2 - 5.2 g/dL [facility] Aspartate Aminotransferase 37 0 - 39 unit/L [facility] Alanine Aminotransferase 61(H) 0 - 55 unit/L [facility] Alkaline Phosphatase 151(H) 40 - 130 unit/L [facility] Bilirubin, Total 0.3 0.2 - 1.3 mg/dL [facility] Est Glomerular Filtration Rate 72 >=60 mL/min/1. 73 m?? [facility] Comment: This patient's estimated [...] Lab Adrianne Ramon MD CHEMISTRY ORDERA BLES [facility] [place] [address] * Blood culture (09/06/2023 10:12 AM EDT) Blood Culture No growth at 5 days. [facility] Blood ANTECUBITAL REGION STRUCTURE / Unknown 09/06/2023 10:12 AM EDT 09/06/2023 10:31 AM EDT Comment:Peripheral culture Narrative Resulting Agency Comment Spec In Lab Adrianne Ramon MD MICROBIOLOGY - B LOOD ORDERABLES [facility] [place] [address] documented in this encounter Visit Diagnoses Diagnosis Diffuse large B-cell lymphoma of lymph nodes of multiple regions Skin nodule Localized superficial swelling, mass, or lump documented in this encounter Care Teams Rn Testing Relationship Specialty Start Date End Date Frederick Meade MD [address] [place] [address] PCP - General Family Medicine 11/29/17 documented as of this encounter
--- OUTSIDE RECORDS SUMMARY | 2023-10-11 03:39 | XMS_ITS | Encounter Summary ---
Author Organization Formerly [facility] [place] [address] Care Team Providers Care Terrazzo Installer Name Role Phone Frederick Meade MD Primary Care Provider [phone] Encounter Details Date Type Department Care Team [...] AM EDT Infusion Hematology Oncology at [address] [address] 10/17/2023 1:00 PM EDT TH Visit (TeleHealth) Hematology/Oncology at [address] [phone] Adrianne Ramon MD [facility] [place] [address] Yael Merlos APRN [facility] [place] [address] 10/17/2023 1:30 PM EDT Infusion Hematology Oncology at [address] [address] 11/14/2023 9:30 AM EDT Office Visit Hematology/Oncology at [address] [address] Adrianne Ramon MD [facility] [place] [address] Yael Merlos APRN [facility] [place] [address] 11/14/2023 10:00 AM EDT Infusion Hematology Oncology at [address] [phone] documented as of this encounter Visit Diagnoses Not on filedocumented in this encounter Care Teams Terrazzo Installer Relationship Specialty Start Date End Date Frederick Meade MD [address] [place] [address] PCP - General Family Medicine 11/29/17 documented as of this encounter
--- OUTSIDE RECORDS SUMMARY | 2023-10-11 03:39 | XMS_ITS | Encounter Summary ---
Author Organization Formerly [facility] [place] [address] Care Team Providers Care Protective Clothing Issuer Name Role Phone Frederick Meade MD Primary Care Provider +1 [phone] Encounter Details Date Type Department Care Team [...] AM EDT Infusion Hematology Oncology at [address] [address] 10/17/2023 1:00 PM EDT TH Visit (TeleHealth) Hematology/Oncology at [address] [address] Adrianne Ramon MD [facility] HEMATOLOGY [place] [address] Yael Merlos APRN [facility] [place] [address] 10/17/2023 1:30 PM EDT Infusion Hematology Oncology at [address] [address] 11/14/2023 9:30 AM EDT Office Visit Hematology/Oncology at [address] [address] Adrianne Ramon MD [facility] HEMATOLOGY [place] [address] Yael Merlos APRN [facility] HEMATOLOGY [place] [address] 11/14/2023 10:00 AM EDT Infusion Hematology Oncology at [address] [address] documented as of this encounter Visit Diagnoses Not on filedocumented in this encounter Care Teams Protective Clothing Issuer Relationship Specialty Start Date End Date Frederick Meade MD [address] [place] [address] PCP - General Family Medicine 11/29/17 documented as of this encounter
--- OUTSIDE RECORDS SUMMARY | 2023-10-11 03:39 | XMS_ITS | Encounter Summary ---
[place] [address] Care Team Providers Care Forest Officer Name Role Phone Frederick Meade MD Primary Care Provider [phone] Reason for Referral * Diagnostic Test (Routine) - Closed Specialty Diagnoses / Procedures Referred By Contac t Referred To Contact Radiology Diagnoses Diffuse large B-cell lymphoma of lymph nodes of multiple regions Procedures IR Mediport Removal Yael Merlos PHOTOENGRAVING APPRENTICE [facility] DR [place]EMATOLOGY [place] [address] [facility] [place] [address] Referral ID Status Reason Start Date Expiration Date V isits Requested Visits Authorized [id number] Closed Specialty Service Requested 03/15/2023 09/12/2024 1 1 Reason for Visit * Diagnostic Test (Routine) - Closed Specialty Diagnoses / Procedures Referred By Contac t Referred To Contact Radiology Diagnoses Diffuse large B-cell lymphoma of lymph nodes of multiple regions Procedures IR Mediport Removal Yael Merlos PHOTOENGRAVING APPRENTICE [facility] HEMATOLOGY [place] [address] [facility] [place] [address] Referral ID Status Reason Start Date Expiration Date V isits Requested Visits Authorized [id number] Closed Specialty Service Requested 03/15/2023 09/12/2024 1 1 Encounter Details Date Type Department Care Team (Latest Contact Info) Description 03/29/2023 12:51 PM EST - 03/29/2023 11:59 PM EST Hospital Encounter Radiology at [facility] [place] [address] Yael Merlos APRN [facility] DR HEMATOLOGY [place] [address] Diffuse large B-cell lymphoma of lymph nodes [...] Zacarias RN - 03/29/2023 2:08 PM EST [facility] Vascular and Interventional Radiology Discharge Instructions [...] not peel them off. There may be [place] (skin glue) also, allow this to flake [...] is during regular office hours, please call [phone]. If it is after regular office hours, or on weekends or holidays, please call [phone] and ask to speak to the Test Preparation Tutor coroner technician for Interventional Radiology. You have received medication [...] of : 1950 AGE: 72 y.o. Address: [address] [place] [address] Phone: [phone] (home) Mobile: Telephone Information: Referring Provider: Yael Merlos REASON FOR VISIT: Order Questions Answers Where will study be performed? [facility] Radiology [120] Reason for exam and [...] AM EDT Infusion Hematology Oncology at [address] [address] 10/17/2023 1:00 PM EDT TH Visit (TeleHealth) Hematology/Oncology at [address] [phone] Adrianne Ramon MD [facility] DR HEMATOLOGY [place] [address] Yael Merlos, KARLA [facility] DR [place] [address] 10/17/2023 1:30 PM EDT Infusion Hematology Oncology at [address] [phone] 11/14/2023 9:30 AM EDT Office Visit Hematology/Oncology at [address] [address] Adrianne Raomn MD [facility] HEMATOLOGY [place] [address] Yael Merlos APRN [facility] DR [place]EM[place]OLOG[place] [address] 11/14/2023 10:00 AM EDT Infusion Hematology Oncology at [address] [phone] documented as of this encounter Procedures Procedure [...] port explant Indication: Lymphoma, therapy complete, discontinue assisted central venous access for chemotherapy Pre-procedure: Informed [...] venous port with all components accounted for. molding press operator: ??Chalo Crews PA-C Attending of record: Ole Arvizu MD 03/29/2023 Yael Merlos PHOTOENGRAVING APPRENTICE IMG IR ORDERABLES documented in this encounter [...] section) documented in this encounter Care Teams Forest Officer Relationship Specialty Start Date End Date Frederick Meade MD [address] [place] [address] PCP - General Family Medicine 11/29/17 documented as of this encounter
--- OUTSIDE RECORDS SUMMARY | 2023-10-11 03:39 | XMS_ITS | Encounter Summary ---
[place] [address] Care Team Providers Care Transport Analyst Name Role Phone Frederick Meade MD Primary Care Provider [phone] [phone] Encounter Details Date Type Department Care Team (Latest Contact Info) Description 09/21/2023 10:30 AM EDT Clinical Support Hematology [place] [phone] Danii Her, RN Diffuse large B-cell lymphoma [...] be ready for shipment. Patient returns to [facility] for 3-5 days of chemotherapy (outpatient). Cell Infusion - admission for a minimum of 7 days (our [facility] standard is 14) for monitoring. 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 Stay within 1 hour [facility] for 4 weeks post infusion. Caregiver required [...] maintenance records: colo - Last completed at [facility] in 2011 Dental: False teeth, all teeth removed years ago. We discussed role of social media marketer for pretransplant assessment and as a resource [...] post CAR T. We will have oncology manager basketball re-enforce food safety guidelines post CAR T [...] AM EDT Infusion Hematology Oncology at [address] [address] 10/17/2023 1:00 PM EDT TH Visit (TeleHealth) Hematology/Oncology at [address] [address] Adrianne Ramon MD [facility] DR HEMATOLOGY [place] [address] Yael Merlos, TRACK LAYING SUPERVISOR [facility] HEMATOLOGY [place] [address] 10/17/2023 1:30 PM EDT Infusion Hematology Oncology at [address] [phone] 11/14/2023 9:30 AM EDT Office Visit Hematology/Oncology at [address] [phone] Adrianne Ramon MD [facility] DR HEMATOLOGY [place] [address] Yael Merlos APRN [facility] HEMATOLOGY [place] [address] 11/14/2023 10:00 AM EDT Infusion Hematology Oncology at [address] [phone] documented as of this encounter Visit Diagnoses Diagnosis Diffuse large B-cell lymphoma of lymph nodes of multiple regions documented in this encounter Care Teams Transport Analyst Relationship Specialty Start Date End Date Frederick Meade MD [address] [place] [address] PCP - General Family Medicine 11/29/17 documented as of this encounter
--- OUTSIDE RECORDS SUMMARY | 2023-10-11 03:39 | XMS_ITS | Encounter Summary ---
Author Organization [place] [address] Care Team Providers Care Social Service Coordinator Name Role Phone Frederick Meade MD Primary Care Provider [phone] Reason for Visit * Diagnostic Test (Routine) - Closed Specialty Diagnoses / Procedures Referred By Contac t Referred To Contact Radiology Diagnoses Diffuse large B-cell lymphoma of lymph nodes of multiple regions Skin nodule Procedures NM PET CT Standard Plus Extremities and Head Adrianne Ramon MD [facility] [place] [address] [place] [address] Referral ID Status Reason Start Date Expiration Date V isits Requested Visits Authorized [id number] Closed Specialty Service Requested 08/22/2023 02/21/2025 1 1 Encounter Details Date Type Department Care Team (Late st Contact Info) Description 09/06/2023 1:00 PM EDT - 09/06/2023 11:59 PM EDT Hospital Encounter [place] [address] Adrianne Ramon MD [facility] [place] [address] Discharge Disposition: Home Social History [...] AM EDT Infusion Hematology Oncology at [address] [phone] 10/17/2023 1:00 PM EDT TH Visit (TeleHealth) Hematology/Oncology at [address] [phone] Adrianne Ramon MD [facility] [place] [address] Yael Merlos APRN [facility] [place] [address] 10/17/2023 1:30 PM EDT Infusion Hematology Oncology at [address] [phone] 11/14/2023 9:30 AM EDT Office Visit Hematology/Oncology at [address] [address] Adrianne Ramon MD [facility] [place] [address] Yael Merlos APRN [facility] [place] [address] 11/14/2023 10:00 AM EDT Infusion Hematology Oncology at [address] [phone] documented as of this encounter Procedures Procedure [...] MD POINT OF CARE TE ST ORDERABLES [facility] [place] [address] * POCT Glucose (09/06/2023 10:41 AM EDT) Glucose, POC 142 65 - 199 mg/dL [facility] Comment: Supplemental ranges: <140 mg/dL before meals <180 mg/dL all other times of the day Blood 09/06/2023 10:4 1 AM EDT 09/06/2023 10:41 AM EDT Adrianne Ramon MD POINT OF CARE TE ST ORDERABLES [facility] [place] [address] documented in this encounter Visit Diagnoses Not on filedocumented in this encounter Care Teams Social Service Coordinator Relationship Specialty Start Date End Date Frederick Meade MD [address] [place] [address] PCP - General Family Medicine 11/29/17 documented as of this encounter
--- OUTSIDE RECORDS SUMMARY | 2023-10-11 03:39 | XMS_ITS | Encounter Summary ---
[place] [address] Care Team Providers Care Slope Runner Name Role Phone Frederick Meade MD Primary Care Provider +1 -[phone] Reason for Referral * Diagnostic Test (Routine) - Authorized Specialty Diagnoses / Procedures Referred By Paul t Referred To Contact Cardiology Diagnoses Diffuse large B-cell lymphoma of lymph nodes of multiple regions High risk medication use Procedures Echocardiogram Transthoracic Adrianne Ramon MD [facility] [address] [place] [address] Referral ID Status Reason Start Date Expiration Date Visits Requested Visits Authorized [id number] Authorized Specialty Service Requested 09/12/2023 03/10/2024 1 1 * Consultation (Routine) - Closed Specialty Diagnoses / Procedures Referred By Contdamir t Referred To Contact Hematology and Oncology Diagnoses Diffuse large B-cell lymphoma of lymph nodes of multiple regions Adrianne Ramon MD [facility] DR [place] [address] [facility] [address] [place] [address] Referral ID Status Reason Start Date Expiration Date V isits Requested Visits Authorized [id number] Closed Specialty Service Requested 09/12/2023 09/11/2024 1 1 Encounter Details Date Type Department Care Team (Late st Contact Info) Description 09/12/2023 10:15 AM EDT Office Visit Hematology/Oncology at [address] [address] Adrianne Ramon MD [facility] [place] [address] Yael Merlos, ASSURANCE ASSOCIATE [facility] [place] [address] Diffuse large B-cell lymphoma of lymph nodes [...] original note were not included. Hematology Clinic [facility] [place] [address] HEMATOLOGY PATIENT EVALUATION PROBLEM LIST: Patient Active [...] to consultation, he saw [facility] in [facility] and when to [facility]. No beds so sent to [facility] for [address] [...] unclear cause. - last COLO at [facility] was 01/17/2012. INTERIM HISTORY OF PRESENT [...] and needle of cervical LN. FISH from [place] No MYCrearrangement and no fusion of MYC [...] only 1 biologic. Son Cheo Freire. Enjoys [employer], [employer], [employer], [employer]. [employer]. 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 Not a . ETOH: 1-3 beers per week Smoking: Quit 1985. Approximately 31-tauz-eanh history Vaping or electronic cigarettes: denies Chewing [...] and BCL-2 protein (Double Expressor.) Flow cytometry ([id number]) supports this interpretation. FISH from [place] No MYC rearrangement and no fusion of MYC and IGH was observed, CD3 (SP7, Thermo Scientific) Background T-cells CD20 (L26, Cucumber) diffusely positive in Neoplastic B-cells PAX-5 (1EW, Leica) diffusely positive in Neoplastic B-cells CD10 (SP67, Cucumber) Negative BCL-6 (G/191E/A8, Cucumber) Positive MUM-1 (MUM1p, Dako) Positive Myc (Y69, Abcam) Positive BCL-2 Oncoprotein (124, Cucumber) Positive Ki67 (MIB-1) (K2, Leica) Greater than 95% of cells in cycle Cyclin D1(SP4-R, Cucumber) Negative SAPPHIRE JOSE ([id number], Leica) Negative. DIAGNOSTICS: 01/25/23 ECHO after C#5 [...] left upper extremity ultrasound performed at [facility] Notable findings: In the left antecubital [...] undergo investigation with ultrasound. CT CAP at [facility], report and images have been requested. [...] at least 1 month spent locally at [facility] and local hospital. Unfortunately, because ofhis age, [...] concepts, and the time it entails at [facility]. This would be a significant commitment for the patient and his family as they live [place] hours away from [facility]. They feel comfortable that they have the [...] a report of increase in arterial thrombosis (CVA/VT) as well. This risk is very small. [...] at 50-55%. --asymptomatic --repeat echo at [facility] 1 year post completion of therapy [...] from 09/06/23 biopsy Repeat ECHO when at [facility] for CAR-T cell discussion Referral to CAR-T [...] AM EDT Infusion Hematology Oncology at [address] [address] 10/17/2023 1:00 PM EDT TH Visit (TeleHealth) Hematology/Oncology at [address] [address] Adrianne Ramon MD [facility] [place] [address] Yael Merlos APRN [facility] [place] [address] 10/17/2023 1:30 PM EDT Infusion Hematology Oncology at [address] [address] 11/14/2023 9:30 AM EDT Office Visit Hematology/Oncology at [address] [address] Adrianne Ramon MD [facility] DR [place] [address] Yael Merlos APRN [facility] [place] [address] 11/14/2023 10:00 AM EDT Infusion Hematology Oncology at [address] [address] Scheduled Orders Name Type Priority Associated Diagnoses [...] medications documented in this encounter Care Teams Slope Runner Relationship Specialty Start Date End Date Frederick Meade MD [address] [place] [address] PCP - General Family Medicine 11/29/17 documented as of this encounter
--- OUTSIDE RECORDS SUMMARY | 2023-10-11 03:39 | XMS_ITS | Encounter Summary ---
Author Organization [facility] [place] [address] Care Team Providers Care Solar Designer/Installer Name Role Phone Frederick Meade MD Primary Care Provider [phone] [phone] Encounter Details Date Type Department Care Team (Late st Contact Info) Description 09/19/2023 Orders Only Hematology [place] [address] Adrianne Ramon MD [facility] [address] [place] [address] Social History Tobacco Use Types Packs/Day Years [...] AM EDT Infusion Hematology Oncology at [address] [address] 10/17/2023 1:00 PM EDT TH Visit (TeleHealth) Hematology/Oncology at [address] [address] Adrianne Ramon MD [facility] HEMATOLOGY [place] [address] Yael Merlos APRN [facility] HEMATOLOGY [place] [address] 10/17/2023 1:30 PM EDT Infusion Hematology Oncology at [address] [address] 11/14/2023 9:30 AM EDT Office Visit Hematology/Oncology at [address] [phone] Adrianne Ramon MD [facility] [address] [place] [address] Yael Merlos APRN [facility] [place] [address] 11/14/2023 10:00 AM EDT Infusion Hematology Oncology at [address] [phone] documented as of this encounter Visit Diagnoses Not on filedocumented in this encounter Care Teams Solar Designer/Installer Relationship Specialty Start Date End Date Frederick Meade MD [address] [place] [address] PCP - General Family Medicine 11/29/17 documented as of this encounter
--- OUTSIDE RECORDS SUMMARY | 2023-10-11 03:39 | XMS_ITS | Encounter Summary ---
Author Organization [facility] [address] Care Team Providers Care Exceptional Student Education Teacher Name Role Phone Frederick Meade MD Primary Care Provider +1 [phone] Encounter Details Date Type Department Care Team [...] AM EDT Infusion Hematology Oncology at [address] [address] 10/17/2023 1:00 PM EDT TH Visit (TeleHealth) Hematology/Oncology at [address] [address] Adrianne Ramon MD [facility] [place] [address] Yael Merlos APRN [facility] [place] [address] 10/17/2023 1:30 PM EDT Infusion Hematology Oncology at [address] [address] 11/14/2023 9:30 AM EDT Office Visit Hematology/Oncology at [address] [address] Adrianne Ramon MD [facility] [place] [address] Yael Merlos APRN [facility] [place] [address] 11/14/2023 10:00 AM EDT Infusion Hematology Oncology at [address] [address] documented as of this encounter Visit Diagnoses Not on filedocumented in this encounter Care Teams Exceptional Student Education Teacher Relationship Specialty Start Date End Date Frederick Meade MD [address] [place] [address] PCP - General Family Medicine 11/29/17 documented as of this encounter
--- OUTSIDE RECORDS SUMMARY | 2023-10-11 03:39 | XMS_ITS | Encounter Summary ---
Author Organization [facility] [place] [address] Care Team Providers Care Commercial Intelligence Manager Name Role Phone Frederick Meade MD Primary Care Provider [phone] [phone] Encounter Details Date Type Department Care Team (Late st Contact Info) Description 09/19/2023 Orders Only [place]ematology [place] [address] Yael Merlos, PROFESSOR OF PSYCHOLOGY [facility] DR [place]EMAT[place] [address] Diffuse large B-cell lymphoma of lymph nodes [...] AM EDT Infusion Hematology Oncology at [address] [address] 10/17/2023 1:00 PM EDT TH Visit (TeleHealth) Hematology/Oncology at [address] [phone] Adrianne Ramon MD [facility] [place]AT[place] [address] Yael Merlos, KARLA [facility] DR [place]EMATOLOG[place] [address] 10/17/2023 1:30 PM EDT Infusion Hematology Oncology at [address] [address] 11/14/2023 9:30 AM EDT Office Visit Hematology/Oncology at [address] [phone] Adrianne Ramon MD [facility] [place] [address] Yael Merlos APRN [facility] DR [place] [address] 11/14/2023 10:00 AM EDT Infusion Hematology Oncology at [address] [phone] Scheduled Orders Name Type Priority Associated Diagnoses Orde r Schedule Uric acid Lab STAT Diffuse large B-cell lymphoma of lymph nodes of multiple regions As Needed for 12 Occurrences starting 09/19/2023 until 09/18/2024 documented as of this encounter Visit Diagnoses Diagnosis Diffuse large B-cell lymphoma of lymph nodes of multiple regions documented in this encounter Care Teams Commercial Intelligence Manager Relationship Specialty Start Date End Date Frederick Meade MD [address] [place] [address] PCP - General Family Medicine 11/29/17 documented as of this encounter
--- OUTSIDE RECORDS SUMMARY | 2023-10-11 03:39 | XMS_ITS | Encounter Summary ---
Author Organization [facility] [place] [address] Care Team Providers Care Offset Machine Operator Name Role Phone Frederick Meade MD Primary Care Provider [phone] [phone] Encounter Details Date Type Department Care Team (Late st Contact Info) Description 09/14/2023 Telephone Hematology/Oncology at [address] [address] Brenda Priest, RN Social [...] 09/14/2023 3:11 PM EDT ADD:Sent email to [employer]a they will contact [employer] to see what they can get for money for pt. They will update us. Received call from Donita Jimenez At [employer] ([phone]) stating that they received the application for patient financial assistance for Revlimid. States that there is a Revlimid prescription claim in [facility] which is showing that the patient has met his OOP max. She suggests that we call [facility] and ask that they reverse the claim because patient hasn't received drug. This willallow them to see what his co-pay will be so that they can determine eligibility for financial assistance and free drug. RN call to [facility] spoke with accredited pharmacy technician who states that the claim was reversed on their end on 09/11 at 5pm. Suggests that I call his insurance to discuss and ask them to reverse the claim. Call to [employer] ([phone]) spoke with someone who transferred me to [employer].Spoke with Marcos at [employer], pharmacy services for claim reversal. Also states that the claim was reversed by [facility] on 09/11, no claim in process at this time. Call to [employer] support, spoke with Donita Jimenez - states that this patient is qualified for a toi.They need to apply for this open toi to try before being able to get free drug. [employer] - [phone] or [employer]well[employer]ation.org - can apply by phone or website. documented in this encounter Plan of Treatment Upcoming Encounters Date Type Department Care Team (Late st Contact Info) Description 10/11/2023 8:30 AM EDT Infusion Hematology Oncology at [address] [address] 10/17/2023 1:00 PM EDT TH Visit (TeleHealth) Hematology/Oncology at [address] [address] Adrianne Ramon MD [facility] [place] [address] Yael Merlos [facility] [place] [address] 10/17/2023 1:30 PM EDT Infusion Hematology Oncology at [address] [address] 11/14/2023 9:30 AM EDT Office Visit Hematology/Oncology at [address] [address] Adrianne Ramon MD [facility] [place] [address] Yael Merlos [facility] [place] [address] 11/14/2023 10:00 AM EDT Infusion Hematology Oncology at [address] [phone] documented as of this encounter Visit Diagnoses Not on filedocumented in this encounter Care Teams Offset Machine Operator Relationship Specialty Start Date End Date Frederick Meade MD [address] [place] [address] [address] [place] [address] PCP - General Family Medicine 11/29/17 documented as of this encounter
--- OUTSIDE RECORDS SUMMARY | 2023-10-11 03:39 | XMS_ITS | Encounter Summary ---
Author Organization [facility] [place] [address] Care Team Providers Care Measurement Department Chief Clerk Name Role Phone Frederick Meade MD Primary Care Provider [phone] [phone] Encounter Details Date Type Department Care Team [...] AM EDT Infusion Hematology Oncology at [address] [address] 10/17/2023 1:00 PM EDT TH Visit (TeleHealth) Hematology/Oncology at [address] [address] Adrianne Ramon MD [facility] [place] [address] Yael Merlos APRN [facility] [place] [address] 10/17/2023 1:30 PM EDT Infusion Hematology Oncology at [address] [address] 11/14/2023 9:30 AM EDT Office Visit Hematology/Oncology at [address] [address] Adrianne Ramon MD [facility] [place] [address] Yael Merlos APRN [facility] [place] [address] 11/14/2023 10:00 AM EDT Infusion Hematology Oncology at [address] [phone] documented as of this encounter Visit Diagnoses Not on filedocumented in this encounter Care Teams Measurement Department Chief Clerk Relationship Specialty Start Date End Date Frederick Meade MD [address] [place] [address] PCP - General Family Medicine 11/29/17 documented as of this encounter
--- OUTSIDE RECORDS SUMMARY | 2023-10-11 03:40 | XMS_ITS | Encounter Summary ---
Author Organization [place] [address] Care Team Providers Care Rinkman Name Role Phone Frederick Meade MD Primary Care Provider +1 -[phone] Encounter Details Date Type Department Care Team (Late st Contact Info) Description 11/16/2022 Orders Only [place]ematology [place] [phone] Adrianne Ramon MD [facility] DR HEMATOLOGY [place] [address] High risk medication use; Diffuse large B-cell [...] AM EDT Infusion Hematology Oncology at [address] [address] 10/17/2023 1:00 PM EDT TH Visit (TeleHealth) Hematology/Oncology at [address] [phone] Adrianne Ramon MD [facility] HEMATOLOGY [place] [address] Yael Merlos APRN [facility] [place]EMATOLOGY [place] [address] 10/17/2023 1:30 PM EDT Infusion Hematology Oncology at [address] [address] 11/14/2023 9:30 AM EDT Office Visit Hematology/Oncology at [address] [address] Adrianne Ramon MD [facility] HEMATOLOGY [place] [address] Yael Merlos APRN [facility] DR [place]EMATOLOG[place] [address] 11/14/2023 10:00 AM EDT Infusion Hematology Oncology at [address] [phone] documented as of this encounter Visit Diagnoses Diagnosis High risk medication use Encounter for long-term (current) use of other medications Diffuse large B-cell lymphoma of lymph nodes of multiple regions documented in this encounter Care Teams Rinkman Relationship Specialty Start Date End Date Frederick Meade MD [address] [place] [address] PCP - General Family Medicine 11/29/17 documented as of this encounter
--- OUTSIDE RECORDS SUMMARY | 2023-10-11 03:40 | XMS_ITS | Encounter Summary ---
Author Organization [facility] [place] [address] Care Team Providers Care Accountant Controller Name Role Phone Frederick Meade MD Primary Care Provider [phone] -[phone] Reason for Visit * Reason Comments Chemotherapy [id number] * Treatment/Therapy Plan Authorization (Routine) - Closed [...] TC CYCLOPHOSPHAMIDE, 100MG (CYTOXAN) Adrianne Ramon MD [facility] DR HEMATOLOGY [place] [address] [facility] [address] [place] [address] Referral ID Status Reason Start Date Expiration Date Visits Re quested Visits Authorized [id number] Closed 10/11/2022 10/11/2023 1 100 Encounter Details Date Type Department Care Team (Late st Contact Info) Description 01/10/2023 9:00 AM EST Infusion Hematology Oncology at [address] [phone] Diffuse large B-cell lymphoma of [...] treatment. OBJECTIVE LAB DATA: completed today at [facility] Pre administration: [...] AM EDT Infusion Hematology Oncology at [address] [address] 10/17/2023 1:00 PM EDT TH Visit (TeleHealth) Hematology/Oncology at [address] [address] [facility] HEMATOLOGY [place] [address] [facility] HEMATOLOGY [place] [address] 10/17/2023 1:30 PM EDT Infusion Hematology Oncology at [address] [address] 11/14/2023 9:30 AM EDT Office Visit Hematology/Oncology at [address] [address] [facility] HEMATOLOGY [place] [address] [facility] HEMATOLOGY [place] [address] (work) 11/14/2023 10:00 AM EDT Infusion Hematology Oncology at [address] [address] documented as of this encounter [...] 2 minutes is a recommendation from the roofing applicator. Administer prior to chemotherapy., Routine Given 01/10/2023 [...] Job Aid: Adult Flushing & Catheter Care (8202) job aid for additional information regarding guidelines [...] Job Aid: Adult Flushing & Catheter Care (9739) job aid for additional information regarding guidelines [...] mL/hr documented in this encounter Care Teams Accountant Controller Relationship Specialty Start Date End Date Frederick Meade MD [address] [place] [address] [address] [place] [address] PCP - General Family Medicine 11/29/17 documented as of this encounter
--- OUTSIDE RECORDS SUMMARY | 2023-10-11 03:40 | XMS_ITS | Encounter Summary ---
Author Organization [facility] [place] [address] Care Team Providers Care Blind Hooker Name Role Phone Frederick Meade MD Primary Care Provider [phone] [phone] Encounter Details Date Type Department Care Team (Late st Contact Info) Description 11/29/2022 9:00 AM EDT Office Visit Hematology/Oncology at [address] [address] Adrianne Ramon MD [facility] DR HEMATOLOGY [place] [address] Yael Merlos APRN [facility] DR HEMATOLOGY [place] [address] Diffuse large B-cell lymphoma of lymph nodes [...] - 11/29/2022 9:00 AM EDT Hematology Clinic [facility] [place] [address] HEMATOLOGY PATIENT EVALUATION Patient Active Problem List [...] weeks ago saw [facility] in [facility] and when to [facility]. No beds so sent to [facility] for [address] CAP, MRI,and [...] with nice response. Pathology from [facility] reports large B-cell lymphoma. Double expresser. FISH for translocations are pending. Tongue swelling. No wt loss. Eating and drinking OK. No fevers, infections, No NS. Pain in neck.Prednisone 60mg daily X 7 days. I feel great on prednisone last day of prednisone is today Took iron supplements per PCP - unclear cause. - last COLO at [facility] was 01/17/2012. INTERIM HISTORY OF PRESENT [...] and needle of cervical LN. FISH from [place] No MYCrearrangement and no fusion of MYC [...] only 1 biologic. Son Cheo Freire. Enjoys [employer], [employer], [employer], [employer]. [employer]. 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 Not a . ETOH: 1-3 beers per week Smoking: Quit 1985. Approximately 84-icik-swri history Vaping or electronic cigarettes: denies Chewing [...] is a delightful 72-year old male in [facility]. He is accompanied to the [...] and BCL-2 protein (Double Expressor.) Flow cytometry ([id number]) supports this interpretation. FISH from [place] No MYC rearrangement and no fusion of MYC and IGH was observed, CD3 (SP7, Thermo Scientific) Background T-cells CD20 (L26, [place]) diffusely positive in Neoplastic B-cells PAX-5 (1EW, Leica) diffusely positive in Neoplastic B-cells CD10 (SP67, [place]) Negative BCL-6 (G/191E/A8, [place]) Positive MUM-1 (MUM1p, Dako) Positive Myc (Y69, Abcam) Positive BCL-2 Oncoprotein (124, [place]) Positive Ki67 (MIB-1) (K2, Leica) Greater than 95% of cells in cycle Cyclin D1(SP4-R, [place]) Negative SAPPHIRE JOSE ([id number], Leica) Negative. DIAGNOSTICS: 10/10/23 ECHO after C#2 [...] investigation with ultrasound. CT CAP at [facility], report and images have [...] Taking oral iron bid. 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 No COLO in last 10 years. [...] AM EDT Infusion Hematology Oncology at [address] [address] 10/17/2023 1:00 PM EDT TH Visit (TeleHealth) Hematology/Oncology at [address] [address] Adrianne Ramon MD [facility] HEMATOLOGY [place] [address] Yael Merlos AUTO JOB ESTIMATOR [facility] HEMATOLOGY AND [place] [address] 10/17/2023 1:30 PM EDT Infusion Hematology Oncology at [address] [address] 11/14/2023 9:30 AM EDT Office Visit Hematology/Oncology at [address] [address] Adrianne Ramon MD [facility] HEMATOLOGY [place] [address] Yael Merlos, [facility] HEMATOLOGY [place] [address] 11/14/2023 10:00 AM EDT Infusion Hematology Oncology at [address] [address] Scheduled Orders Name Type Priority Associated Diagnoses [...] type documented in this encounter Care Teams Blind Hooker Relationship Specialty Start Date End Date Frederick Meade MD [address] [place] [address] PCP - General Family Medicine 11/29/17 documented as of this encounter
--- OUTSIDE RECORDS SUMMARY | 2023-10-11 03:40 | XMS_ITS | Encounter Summary ---
[place] [address] Care Team Providers Care Commercial Leasing Manager Name Role Phone Frederick Meade MD Primary Care Provider +1 -[phone] Reason for Referral * Diagnostic Test (Routine) - Closed Specialty Diagnoses / Procedures Referred By Contac t Referred To Contact Radiology Diagnoses Diffuse large B-cell lymphoma of lymph nodes of multiple regions Procedures NM PET CT Standard Plus Extremities and Head Yael Merlos APRN [facility] [address] [place] [address] [place] [address] Referral ID Status Reason Start Date Expiration Date V isits Requested Visits Authorized [id number] Closed Specialty Service Requested 12/20/2022 06/19/2024 1 1 Reason for Visit * Diagnostic Test (Routine) - Closed Specialty Diagnoses / Procedures Referred By Contac t Referred To Contact Radiology Diagnoses Diffuse large B-cell lymphoma of lymph nodes of multiple regions Procedures NM PET CT Standard Plus Extremities and Head Yael Merlos APRN [facility] [place] [address] [place] [address] Referral ID Status Reason Start Date Expiration Date V isits Requested Visits Authorized [id number] Closed Specialty Service Requested 12/20/2022 06/19/2024 1 1 Encounter Details Date Type Department Care Team (Latest Contact Info) Description 01/05/2023 7:19 AM EST - 01/05/2023 11:59 PM EST Hospital Encounter Nuclear Medicine at [facility] [place] [id number] Yael Merlos APRN [facility] [place] [address] 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 PrepairTOUCH ULTRA BLUE TEST STRIP Strip USE TO [...] AM EDT Infusion Hematology Oncology at [address] [address] 10/17/2023 1:00 PM EDT TH Visit (TeleHealth) Hematology/Oncology at [address] [address] Adrianne Ramon MD [facility] HEMATOLOGY [place] [address] Yael Merlos APRN [facility] [place] [address] 10/17/2023 1:30 PM EDT Infusion Hematology Oncology at [address] [address] 11/14/2023 9:30 AM EDT Office Visit Hematology/Oncology at [address] [address] Adrianne Ramon MD [facility] [place] [address] Yael Merlos, FUNERAL SALES MANAGER [facility] [place] [address] 11/14/2023 10:00 AM EDT Infusion Hematology Oncology at [address] [address] documented as of this encounter Procedures Procedure [...] have questions please contact the health rn wound care that requested your imaging first. ? Electronically signed by: Fletcher Duckworth MD, [facility] ([phone]), at 01/05/2023 9:50 AM Narrative 01/05/2023 9:50 AM EST EXAMINATION: NM PET CT STANDARD PLUS EXTREMITIES AND HEAD CLINICAL HISTORY: Hematologic malignancy, assess treatment response Non-Hodgkin lymphoma TECHNIQUE: Procedure: Following IV injection of 76-fsaaeh-7-deoxyglucose (FDG) a standard uptake of approximately 60 [...] lymphoma TECHNIQUE: Procedure: Following IV injection of 02-bsthob-6-deoxyglucose(FDG) a standard uptake of approximately 60 minutes, [...] of the left upper lobe (image [id number]). These foci are new since the prior [...] who have questions please contactthe health rn wound care that requested your imaging first. Electronically signed by: Fletcher Duckworth MD, [facility]([phone]), at 01/05/2023 9:50 AM Yael Merlos FUNERAL SALES MANAGER IMG PET ORDERABLES documented in this encounter [...] Arm documented in this encounter Care Teams Commercial Leasing Manager Relationship Specialty Start Date End Date Frederick Meade MD [address] [place] [address] [address] [facility] 1 [place] [address] PCP - General Family Medicine 11/29/17 documented as of this encounter
--- OUTSIDE RECORDS SUMMARY | 2023-10-11 03:40 | XMS_ITS | Encounter Summary ---
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 No beds so sent to [facility] for [address] CAP, MRI,and [...] cause. - last COLO at [facility] was 01/17/2012. INTERIM HISTORY OF PRESENT ILLNESS: [...] and needle of cervical LN. FISH from [place] No MYCrearrangement and no fusion of MYC [...] Freire. Enjoys reads, movies, race car, cards. Sliced [employer]. 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 Not a . ETOH: 1-3 beers per week Smoking: Quit 1985. Approximately 80-epxp-qvei history Vaping or electronic cigarettes: denies Chewing [...] is a delightful 72-year old male in [facility]. He is accompanied to the [...] and BCL-2 protein (Double Expressor.) Flow cytometry ([id number]) supports this interpretation. FISH from [place] No MYC rearrangement and no fusion of MYC and IGH was observed, CD3 (SP7, Thermo Scientific) Background T-cells CD20 (L26, [place]) diffusely positive in Neoplastic B-cells PAX-5 (1EW, Leica) diffusely positive in Neoplastic B-cells CD10 (SP67, [place]) Negative BCL-6 (G/191E/A8, [place]) Positive MUM-1 (MUM1p, Dako) Positive Myc (Y69, Abcam) Positive BCL-2 Oncoprotein (124, [place]) Positive Ki67 (MIB-1) (K2, Leica) Greater than 95% of cells in cycle Cyclin D1(SP4-R, [place]) Negative SAPPHIRE JOSE ([id number], Leica) Negative. DIAGNOSTICS: 01/25/23 ECHO after C#5 [...] 50-55%. --asymptomatic --repeat echo at [facility] 1 year post completion of therapy Suspected [...] and counseling as appropriate. Yael Merlos, MSN, [place] Nurse Practitioner Section of Hematology Copy Frederick Meade MD documented in this encounter Plan of Treatment Upcoming Encounters Date Type Department Care Team (Late st Contact Info) Description 10/11/2023 8:30 AM EDT Infusion Hematology Oncology at [address] [address] 10/17/2023 1:00 PM EDT TH Visit (TeleHealth) Hematology/Oncology at [address] [address] Adrianne Ramon MD [facility] HEMATOLOGY [place] [address] Yael Merlos APRN [facility] HEMATOLOGY [place] [address] 10/17/2023 1:30 PM EDT Infusion Hematology Oncology at [address] [address] 11/14/2023 9:30 AM EDT Office Visit Hematology/Oncology at [address] [phone] Adrianne Ramon MD [facility] HEMATOLOGY [place] [address] Yael Merlos APRN [facility] HEMATOLOGY [place] [address] 11/14/2023 10:00 AM EDT Infusion Hematology Oncology at [address] [address] documented as of this encounter [...] difficile documented in this encounter Care Teams Lithostripper Relationship Specialty Start Date End Date Frederick Meade MD [address] [facility] 1 [place] [address] PCP - General Family Medicine 11/29/17 documented as of this encounter
--- OUTSIDE RECORDS SUMMARY | 2023-10-11 03:40 | XMS_ITS | Encounter Summary ---
Author Organization [facility] [place] [address] Care Team Providers Care Package Delivery Room Service Runner Name Role Phone Frederick Meade MD Primary Care Provider +1 [phone] Encounter Details Date Type Department Care Team [...] AM EDT Infusion Hematology Oncology at [address] [address] 10/17/2023 1:00 PM EDT TH Visit (TeleHealth) Hematology/Oncology at [address] [address] Adrianne Ramon MD [facility] [place] [address] Yael Merlos APRN [facility] [place] [address] 10/17/2023 1:30 PM EDT Infusion Hematology Oncology at [address] [address] 11/14/2023 9:30 AM EDT Office Visit Hematology/Oncology at [address] [address] Adrianne Ramon MD [facility] [place] [address] Yael Merlos APRN [facility] [place] [address] 11/14/2023 10:00 AM EDT Infusion Hematology Oncology at [address] [address] documented as of this encounter Visit Diagnoses Not on filedocumented in this encounter Care Teams Package Delivery Room Service Runner Relationship Specialty Start Date End Date Frederick Meade MD [address] [place] [address] PCP - General Family Medicine 11/29/17 documented as of this encounter
--- OUTSIDE RECORDS SUMMARY | 2023-10-11 03:40 | XMS_ITS | Encounter Summary ---
Author Organization [facility] [place] [address] Care Team Providers Care Flight Control Specialist Name Role Phone Frederick Meade MD Primary Care Provider +1 [phone] Encounter Details Date Type Department Care Team [...] AM EDT Infusion Hematology Oncology at [address] [address] 10/17/2023 1:00 PM EDT TH Visit (TeleHealth) Hematology/Oncology at [address] [address] Adrianne Ramon MD [facility] [place] [address] Yael Merlos APRN [facility] [place] [address] 10/17/2023 1:30 PM EDT Infusion Hematology Oncology at [address] [address] 11/14/2023 9:30 AM EDT Office Visit Hematology/Oncology at [address] [address] Adrianne Ramon MD [facility] [place]ATOLOG[place] [address] Yael Merlos APRN [facility] [place] [address] 11/14/2023 10:00 AM EDT Infusion Hematology Oncology at [address] [address] documented as of this encounter Visit Diagnoses Not on filedocumented in this encounter Care Teams Flight Control Specialist Relationship Specialty Start Date End Date Frederick Meade MD [address] [place] [address] PCP - General Family Medicine 11/29/17 documented as of this encounter
--- OUTSIDE RECORDS SUMMARY | 2023-10-11 03:40 | XMS_ITS | Encounter Summary ---
Author Organization [facility] [place] [address] Care Team Providers Care Curriculum Advisory Teacher Name Role Phone Frederick Meade MD Primary Care Provider +1 [phone] Encounter Details Date Type Department Care Team (Late st Contact Info) Description 11/16/2022 Telephone Hematology/Oncology at [address] [address] Brenda Priest, RN Social History [...] Call: Received call from OSCAR Marcelo at [facility] notifying us that patient was admitted [facility] yesterday and is positive for C-Diff. Dr. Ramon and Yael Merlos APRN updated via this note. documented in this encounter Plan of Treatment Upcoming Encounters Date Type Department Care Team (Late st Contact Info) Description 10/11/2023 8:30 AM EDT Infusion Hematology Oncology at [address] [address] 10/17/2023 1:00 PM EDT TH Visit (TeleHealth) Hematology/Oncology at [address] [address] Adrianne Ramon MD [facility] HEMATOLOGY [place] [address] Yael Merlos APRN [facility] HEMATOLOGY [place] [address] 10/17/2023 1:30 PM EDT Infusion Hematology Oncology at [address] [address] 11/14/2023 9:30 AM EDT Office Visit Hematology/Oncology at [address] [address] Adrianne Ramon MD [facility] HEMATOLOGY [place] [address] Yael Merlos APRN [facility] HEMATOLOGY [place] [address] 11/14/2023 10:00 AM EDT Infusion Hematology Oncology at [address] [phone] documented as of this encounter Visit Diagnoses Not on filedocumented in this encounter Care Teams Curriculum Advisory Teacher Relationship Specialty Start Date End Date Frederick Meade MD [address] [place] [address] PCP - General Family Medicine 11/29/17 documented as of this encounter
--- OUTSIDE RECORDS SUMMARY | 2023-10-11 03:40 | XMS_ITS | Encounter Summary ---
Author Organization [facility] [place] [address] Care Team Providers Care Employee Health Rn Name Role Phone Frederick Meade MD Primary Care Provider +1 [phone] Encounter Details Date Type Department Care Team [...] AM EDT Infusion Hematology Oncology at [address] [address] 10/17/2023 1:00 PM EDT TH Visit (TeleHealth) Hematology/Oncology at [address] [address] Adrianne Ramon MD [facility] HEMATOLOGY [place] [address] Yael Merlos APRN [facility] [place] [address] 10/17/2023 1:30 PM EDT Infusion Hematology Oncology at [address] [address] 11/14/2023 9:30 AM EDT Office Visit Hematology/Oncology at [address] [address] Adrianne Ramon MD [facility] H[place]OLOGY [place] [address] Yael Merlos APRN [facility] [place]OLOG[place] [address] 11/14/2023 10:00 AM EDT Infusion Hematology Oncology at [address] [address] documented as of this encounter Visit Diagnoses Not on filedocumented in this encounter Care Teams Employee Health Rn Relationship Specialty Start Date End Date Frederick Meade MD [address] [place] [address] PCP - General Family Medicine 11/29/17 documented as of this encounter
--- OUTSIDE RECORDS SUMMARY | 2023-10-11 03:40 | XMS_ITS | Encounter Summary ---
Author Organization [facility] [place] [address] Care Team Providers Care Logistics Team Lead Name Role Phone Frederick Meade MD Primary Care Provider +1 -[phone] Reason for Visit * Reason Comments Chemotherapy [...] [facility] [place] [address] [facility] [address] [place] [phone] Referral ID Status Reason Start Date Expiration Date Visits Re quested Visits Authorized [id number] Closed 10/11/2022 10/11/2023 1 100 Encounter Details Date Type Department Care Team (Late st Contact Info) Description 01/31/2023 9:00 AM EST Infusion Hematology Oncology at [address] [address] Diffuse large B-cell lymphoma [...] LAB DATA: completed today at [facility] Pre administration: Chemotherapy orders independently verified [...] AM EDT Infusion Hematology Oncology at [address] [address] 10/17/2023 1:00 PM EDT TH Visit (TeleHealth) Hematology/Oncology at [address] [address] Adrianne Ramon MD [facility] [place] [address] Yael Merlos APRN [facility] [place] [address] 10/17/2023 1:30 PM EDT Infusion Hematology Oncology at [address] [address] 11/14/2023 9:30 AM EDT Office Visit Hematology/Oncology at [address] [address] Adrianne Ramon MD [facility] [place] [address] Yael Merlos APRN [facility] HEMATOLOGY [place] [address] 11/14/2023 10:00 AM EDT Infusion Hematology Oncology at [address] [phone] documented as of this encounter Visit Diagnoses [...] 2 minutes is a recommendation from the commercial relief driver. Administer prior to chemotherapy., Routine Given 01/31/2023 [...] Job Aid: Adult Flushing & Catheter Care (8075) job aid for additional information regarding guidelines [...] Job Aid: Adult Flushing & Catheter Care (2243) job aid for additional information regarding guidelines [...] mL/hr documented in this encounter Care Teams Logistics Team Lead Relationship Specialty Start Date End Date Frederick Meade MD [address] [facility] 1 [place] [address] PCP - General Family Medicine 11/29/17 documented as of this encounter
--- OUTSIDE RECORDS SUMMARY | 2023-10-11 03:40 | XMS_ITS | Encounter Summary ---
Author Organization [facility] Address 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 No beds so sent to [facility] for [address] CAP, MRI,and [...] x7 days with nice response. Pathology from [facility] reports large B-cell lymphoma. Double expresser. FISH [...] and needle of cervical LN. FISH from [place] No MYCrearrangement and no fusion of MYC [...] only 1 biologic. Son Cheo Freire. Enjoys [employer], [employer], [employer] car, [employer]. [employer]. 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 Not a . ETOH: 1-3 beers per week Smoking: Quit 1985. Approximately 56-btii-dyzl history Vaping or electronic cigarettes: denies Chewing [...] is a delightful 72-year old male in [facility]. He is accompanied to the [...] and BCL-2 protein (Double Expressor.) Flow cytometry ([id number]) supports this interpretation. FISH from [place] No MYC rearrangement and no fusion of MYC and IGH was observed, CD3 (SP7, Thermo Scientific) Background T-cells CD20 (L26, [place]) diffusely positive in Neoplastic B-cells PAX-5 (1EW, Leica) diffusely positive in Neoplastic B-cells CD10 (SP67, [place]) Negative BCL-6 (G/191E/A8, [place]) Positive MUM-1 (MUM1p, Dako) Positive Myc (Y69, Abcam) Positive BCL-2 Oncoprotein (124, [place]) Positive Ki67 (MIB-1) (K2, Leica) Greater than 95% of cells in cycle Cyclin D1(SP4-R, [place]) Negative SAPPHIRE JOSE ([id number], Leica) Negative. DIAGNOSTICS: 11/28/22 ECHO after C#2 [...] undergo investigation with ultrasound. CT CAP at [facility], report and images have been requested. [...] Jan 2023 - booked for 01/25/23 at [facility] Recommend COVID vaccine though he is aware that he may not have a robust response due to ongoing chemotherapy with B-cell depletion. He has already received influenza vaccine. Final PET week of Mar 05 at [facility] with appt 03/14/22 I discussed all of the above with the patient and all of his questions were answered. Support and counseling as appropriate. Copy Frederick Meade MD documented in this encounter Plan of Treatment Upcoming Encounters Date Type Department Care Team (Late st Contact Info) Description 10/11/2023 8:30 AM EDT Infusion Hematology Oncology at [address] [address] 10/17/2023 1:00 PM EDT TH Visit (TeleHealth) Hematology/Oncology at [address] [address] Adrianne Ramon MD [facility] [place] [address] Yael Merlos APRN [facility] [place] [address] 10/17/2023 1:30 PM EDT Infusion Hematology Oncology at [address] [address] 11/14/2023 9:30 AM EDT Office Visit Hematology/Oncology at [address] [address] Adrianne Ramon MD [facility] HEMATOLOGY [place] [address] Yael Merlos APRN [facility] [place] [address] 11/14/2023 10:00 AM EDT Infusion Hematology Oncology at [address] [phone] documented as of this [...] regions documented in this encounter Care Teams Take Away Man Relationship Specialty Start Date End Date Frederick Meade MD [address] [place] [address] PCP - General Family Medicine 11/29/17 documented as of this encounter
--- OUTSIDE RECORDS SUMMARY | 2023-10-11 03:40 | XMS_ITS | Encounter Summary ---
Author Organization [facility] Address [facility] [place] [address] Care Team Providers Care Bushel Girl Name Role Phone Frederick Meade MD Primary Care Provider [phone] [phone] Encounter Details Date Type Department Care Team (Late st Contact Info) Description 11/29/2022 Notes Only Hematology/Oncology at [address] [address] Shelley Cason, [facility] OFFICE OF CARE MANAGEMENT Social History Tobacco [...] the team is looking at more affordableoptions. ARCHITECTURAL JOB CAPTAIN does not have a solution to the cost but offered information about the [facility] [employer] which if approved would send a monthly [...] AM EDT Infusion Hematology Oncology at [address] [address] 10/17/2023 1:00 PM EDT TH Visit (TeleHealth) Hematology/Oncology at [address] [address] Adrianne Ramon MD [facility] [place] [address] Yael Merlos, KARLA [facility] [place] [address] 10/17/2023 1:30 PM EDT Infusion Hematology Oncology at [address] [phone] 11/14/2023 9:30 AM EDT Office Visit Hematology/Oncology at [address] [phone] Adrianne Ramon MD [facility] [place] [address] Yael Merlos APRN [facility] [place] [address] 11/14/2023 10:00 AM EDT Infusion Hematology Oncology at [address] [phone] documented as of this encounter Visit Diagnoses Not on filedocumented in this encounter Care Teams Bushel Girl Relationship Specialty Start Date End Date Frederick Meade MD [address] [place] [address] PCP - General Family Medicine 11/29/17 documented as of this encounter
--- OUTSIDE RECORDS SUMMARY | 2023-10-11 03:40 | XMS_ITS | Encounter Summary ---
Author Organization [facility] [place] [address] Care Team Providers Care Fabrication Welder Name Role Phone Frederick Meade MD Primary Care Provider [phone] Encounter Details Date Type Department Care Team [...] AM EDT Infusion Hematology Oncology at [address] [phone] 10/17/2023 1:00 PM EDT TH Visit (TeleHealth) Hematology/Oncology at [address] [phone] Adrianne Ramon MD [facility] HEMATOLOGY [place] [address] Yael Merlos APRN [facility] HEMATOLOGY [place] [address] 10/17/2023 1:30 PM EDT Infusion Hematology Oncology at [address] [phone] 11/14/2023 9:30 AM EDT Office Visit Hematology/Oncology at [address] [phone] Adrianne Ramon MD [facility] HEMATOLOGY [place] [address] Yael Merlos APRN [facility] HEMATOLOGY [place] [address] 11/14/2023 10:00 AM EDT Infusion Hematology Oncology at [address] [phone] documented as of this encounter Visit Diagnoses Not on filedocumented in this encounter Care Teams Fabrication Welder Relationship Specialty Start Date End Date Frederick Meade MD [address] [place] [address] PCP - General Family Medicine 11/29/17 documented as of this encounter
--- OUTSIDE RECORDS SUMMARY | 2023-10-11 03:40 | XMS_ITS | Encounter Summary ---
Author Organization [facility] Address [facility] [place] [address] Care Team Providers Care Usps Letter Carrier Name Role Phone Frederick Meade MD Primary Care Provider [phone] Encounter Details Date Type Department Care Team (Late st Contact Info) Description 01/31/2023 Notes Only Hematology/Oncology at [address] [phone] Shelley Cason, [facility] [...] did not identify any new needs today. WELCOME HOSTESS will continue as a resource for them. Brief assessment Supportive Counseling documented in this encounter Plan of Treatment Upcoming Encounters Date Type Department Care Team (Late st Contact Info) Description 10/11/2023 8:30 AM EDT Infusion Hematology Oncology at [address] [phone] 10/17/2023 1:00 PM EDT TH Visit (TeleHealth) Hematology/Oncology at [address] [phone] Adrianne Ramon MD [facility] DR HEMATOLOGY [place] [address] Yael Merlos, [facility] [place] [address] 10/17/2023 1:30 PM EDT Infusion Hematology Oncology at [address] [phone] 11/14/2023 9:30 AM EDT Office Visit Hematology/Oncology at [address] [phone] Adrianne Ramon MD [facility] [place] [address] Yael Merlos, [facility] [place] [address] 11/14/2023 10:00 AM EDT Infusion Hematology Oncology at [address] [phone] documented as of this encounter Visit Diagnoses Not on filedocumented in this encounter Care Teams Usps Letter Carrier Relationship Specialty Start Date End Date Frederick Meade MD [address] [place] [address] PCP - General Family Medicine 11/29/17 documented as of this encounter
--- OUTSIDE RECORDS SUMMARY | 2023-10-11 03:40 | XMS_ITS | Encounter Summary ---
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 of multiple regions Procedures NM PET CT Skull Base to Mid-thigh Yael Merlos APRN [facility] HEMATOLOGY [place] [address] [place] [address] Referral ID Status Reason Start Date Expiration Date V isits Requested Visits Authorized [id number] Closed Specialty Service Requested 01/15/2023 07/15/2024 1 1 Encounter Details Date Type Department Care Team (Late st Contact Info) Description 01/15/2023 Orders Only Hematology [place] [address] Yael Merlos APRN [facility] HEMATOLOGY [place] [address] Diffuse large B-cell lymphoma [...] AM EDT Infusion Hematology Oncology at [address] [phone] 10/17/2023 1:00 PM EDT TH Visit (TeleHealth) Hematology/Oncology at [address] [phone] Adrianne aRmon MD [facility] HEMATOLOGY [place] [address] Yael Merlos APRN [facility] HEMATOLOGY [place] [address] 10/17/2023 1:30 PM EDT Infusion Hematology Oncology at [address] [phone] 11/14/2023 9:30 AM EDT Office Visit Hematology/Oncology at [address] [phone] Adrianne Ramon MD [facility] HEMATOLOGY [place] [address] Yael Merlos APRN [facility] HEMATOLOGY [place] [address] 11/14/2023 10:00 AM EDT Infusion Hematology Oncology at [address] [phone] documented as of this encounter Results * [...] who have questions please contact the health emergency care attendant that requested your imaging first. ? Narrative 03/08/2023 11:33 AM EST EXAMINATION: NM PET CT STANDARD SKULL BASE TO MID-THIGH CLINICAL HISTORY: Hematologic malignancy, assess treatment response History of diffuse large B-cell lymphoma, status post 6 cycles of RCHOP. TECHNIQUE: Following IV injection of 28-rmjgvm-7-deoxyglucose (FDG) a standard uptake of approximately 60 [...] of RCHOP. TECHNIQUE: Following IV injection of 59-oeoixw-5-deoxyglucose (FDG) astandard uptake of approximately 60 minutes, [...] patients who have questions please contactthe health emergency care attendant that requested your imaging first. 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
--- OUTSIDE RECORDS SUMMARY | 2023-10-11 03:40 | XMS_ITS | Encounter Summary ---
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 Hospital Encounter [place] [address] Yael Merlos [facility] [place]OLOG[place] [address] Discharge Disposition: Home Social History [...] AM EDT Infusion Hematology Oncology at [address] [phone] 10/17/2023 1:00 PM EDT TH Visit (TeleHealth) Hematology/Oncology at [address] [phone] Adrianne Ramon MD [facility] DR [place]AT[place] [address] Yael Merlos, TECHNICAL SUPPORT CONSULTANT [facility] [place] [address] 10/17/2023 1:30 PM EDT Infusion Hematology Oncology at [address] [phone] 11/14/2023 9:30 AM EDT Office Visit Hematology/Oncology at [address] [phone] Adrianne Ramon MD [facility] DR [place] [address] Yael Merlos APRN [facility] DR [place] [address] 11/14/2023 10:00 AM EDT Infusion Hematology Oncology at [address] [phone] documented as of this encounter Procedures Procedure Name Priority Date/Time Associated Diagnosis Comments NM PET CT SKULL BASE TO MID-THIGH (LCSR) Routine 03/06/2023 9:17 AM EST 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 of multiple regions POCT GLUCOSE Routine 03/06/2023 8:05 AM EST documented in this encounter Results * POCT Glucose (03/06/2023 8:05 AM EST) Glucose, POC 126 65 - 199 mg/dL [facility] Comment: Supplemental ranges: <140 mg/dL before meals <180 mg/dL all other times of the day Blood 03/06/2023 8:05 AM EST 03/06/2023 8:05 AM EST Yael Merlos APRN POINT OF CARE TEST ORDERABLES [facility] [place] [address] documented in this encounter Visit Diagnoses Not on filedocumented in this encounter Care Teams [employer] [place] [employer] Relationship Specialty Start Date End Date Frederick Meade MD [address] [place], [place] [address] PCP - General Family Medicine 11/29/17 documented as of this encounter
--- OUTSIDE RECORDS SUMMARY | 2023-10-11 03:40 | XMS_ITS | Encounter Summary ---
[place] [address] Care Team Providers Care Defect Cutter Name Role Phone Frederick Meade MD Primary Care Provider [phone] Reason for Referral * Diagnostic Test (Routine) - Closed Specialty Diagnoses / Procedures Referred By Contac t Referred To Contact Radiology Diagnoses Diffuse large B-cell lymphoma of lymph nodes of multiple regions Procedures NM PET CT Standard Plus Extremities and Head Yael Merlos APRN [facility] [place] [address] [place] [address] Referral ID Status Reason Start Date Expiration Date V isits Requested Visits Authorized [id number] Closed Specialty Service Requested 12/20/2022 06/19/2024 1 1 Reason for Visit * Reason Comments Follow-up Chemotherapy Encounter Details Date Type Department Care Team (Late st Contact Info) Description 12/20/2022 8:30 AM EDT Office Visit Hematology/Oncology at [address] [phone] Adrianne Ramon MD [facility] [place] [address] Yael Merlos APRN [facility] [place] [address] Diffuse large B-cell lymphoma of lymph nodes [...] this encounter Progress Notes * Yael Merlos, SILK EXAMINER - 12/20/2022 8:30 AM EDT Hematology Clinic [facility] [address] HEMATOLOGY PATIENT EVALUATION Patient Active Problem List Diagnosis Abnormal echocardiogram Diffuse large B-cell lymphoma of lymph nodes of multiple regions Anemia, iron deficiency Gout Malignant neoplasm of prostate HISTORY OF PRESENT ILLNESS: Patient prefers to be called: Cheo Support person(s) : Claritza son Cheo It was my pleasure to meet hCeo Freire today. Cheo Freire is a 72 y.o. male being seen for evaluation of of newly diagnosed B cell lymphoma. he is referred in consultaion from Dr Lg Ramírez ENT. 4 week h/o of sinus swelling and then cervial LN and could not breath. ~2 weeks ago saw [facility] and when to [facility]. No beds so sent [facility] [...] - unclear cause. - last COLO at [facility] was 01/17/2012. INTERIM HISTORY OF PRESENT [...] and needle of cervical LN. FISH from [place] No MYCrearrangement and no fusion of MYC [...] only 1 biologic. Son Cheo Freire. Enjoys [employer], movies, race car, cards. [employer]. 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 Not a . ETOH: 1-3 beers per week Smoking: Quit 1985. Approximately 33-igpt-ruas history Vaping or electronic cigarettes: denies Chewing [...] is a delightful 72-year old male in [facility]. He is accompanied to the [...] and BCL-2 protein (Double Expressor.) Flow cytometry ([id number]) supports this interpretation. FISH from [place] No MYC rearrangement and no fusion of MYC and IGH was observed, CD3 (SP7, [employer]) Background T-cells CD20 (L26, [place]) diffusely positive in Neoplastic B-cells PAX-5 (1EW, Leica) diffusely positive in Neoplastic B-cells CD10 (SP67, [place]) Negative BCL-6 (G/191E/A8, [place]) Positive MUM-1 (MUM1p, Dako) Positive Myc (Y69, [employer]cam) Positive BCL-2 Oncoprotein (124, [place]) Positive Ki67 (MIB-1) (K2, Leica) Greater than 95% of cells in cycle Cyclin D1(SP4-R, [place]) Negative SAPPHIRE JOSE ([id number], Leica) Negative. DIAGNOSTICS: 11/28/22 ECHO after C#2 [...] Jan 2023 - booked for 01/25/23 at [facility] Recommend COVID vaccine though he is aware that he may not have a robust response due to ongoing chemotherapy with B-cell depletion. He has already received influenza vaccine. I discussed all of the above with the patient and all of his questions were answered. Support and counseling as appropriate. Yael Merlos, MSN, SILK EXAMINER Nurse practitioner Section of Hematology Copy Frederick Meade MD documented in this encounter Plan of Treatment Upcoming Encounters Date Type Department Care Team (Late st Contact Info) Description 10/11/2023 8:30 AM EDT Infusion Hematology Oncology at [address] [phone] 10/17/2023 1:00 PM EDT TH Visit (TeleHealth) Hematology/Oncology at [address] [phone] Adrianne Ramon MD [facility] [place] [address] Yael Merlos APRN [facility] [place] [address] 10/17/2023 1:30 PM EDT Infusion Hematology Oncology at [address] [phone] 11/14/2023 9:30 AM EDT Office Visit Hematology/Oncology at [address] [phone] Adrianne Ramon MD [facility] DR [place] [address] Yael Merlos APRN [facility] [place] [address] 11/14/2023 10:00 AM EDT Infusion Hematology Oncology at [address] [phone] documented as of this encounter Procedures Procedure [...] who have questions please contact the health customer care agent that requested your imaging first. ? Electronically signed by: Fletcher Duckworth MD, [facility] ([phone]), at 01/05/2023 9:50 AM Narrative 01/05/2023 9:50 AM EST EXAMINATION: NM PET CT STANDARD PLUS EXTREMITIES AND HEAD CLINICAL HISTORY: Hematologic malignancy, assess treatment response Non-Hodgkin lymphoma TECHNIQUE: Procedure: Following IV injection of 14-hqkakf-3-deoxyglucose (FDG) a standard uptake of approximately 60 [...] lymphoma TECHNIQUE: Procedure: Following IV injection of 90-trkbdn-9-deoxyglucose(FDG) a standard uptake of approximately 60 minutes, [...] of the left upper lobe (image 131 [id number]). These foci are new since the prior [...] patients who have questions please contactthe health customer care agent that requested your imaging first. Yael Merlos SILK EXAMINER IM PET ORDERABLES * Comprehensive metabolic panel (non-fasting) (12/20/2022) Pathologist [facility] Creatinine 0.9 Potassium 3.4 Bilirubin, Total 0.2 [...] regions documented in this encounter Care Teams Defect Cutter Relationship Specialty Start Date End Date Frederick Meade MD [address] [place] [address] PCP - General Family Medicine 11/29/17 documented as of this encounter
--- OUTSIDE RECORDS SUMMARY | 2023-10-11 03:40 | XMS_ITS | Encounter Summary ---
Author Organization [facility] [address] Care Team Providers Care Staff Forester Name Role Phone Frederick Meade MD Primary Care Provider [phone] Encounter Details Date Type Department Care Team (Latest Contact Info) Description 03/06/2023 7:23 AM EST - 03/06/2023 7:51 AM EST Hospital Encounter [place]ematology [place] [address] Non-Hodgkin lymphoma of lymph nodes of multiple [...] AM EDT Infusion Hematology Oncology at [address] [address] 10/17/2023 1:00 PM EDT TH Visit (TeleHealth) Hematology/Oncology at [address] [address] Adrianne Ramon MD [facility] [place] [address] Yael Merlos APRN [facility] [place] [address] 10/17/2023 1:30 PM EDT Infusion Hematology Oncology at [address] [address] 11/14/2023 9:30 AM EDT Office Visit Hematology/Oncology at [address] [address] Adrianne Ramon MD [facility] [place] [address] Yael Merlos APRN [facility] DR [place] [address] 11/14/2023 10:00 AM EDT Infusion Hematology Oncology at [address] [address] Scheduled Orders Name Type Priority [...] 7:45 AM EST) Neutrophil % 56.0 % [facility] Neutrophil Absolute 3.23 1.70 - 6.10 x10(3)/mc L [facility] Lymph % 12.1 % [facility] Lymphocytes Abs 0.7(L) 0.9 - 3.2 x10(3)/mc L [facility] Monocyte % 20.5 % [facility] Monocyte Abs 1.2(H) 0.3 - 0.9 x10(3)/mc L [facility] Eos % 10.2 % [facility] Eosinophils Abs 0.6(H) 0.0 - 0.4 x10(3)/mc L [facility] Basophil % 1.0 % [facility] Baso Absolute 0.1 0.0 - 0.1 x10(3)/mc L [facility] Immature Gran % 0.20 % [facility] Comment: Immature granulocytes(IG's)percentage and absolute count will include metamyelocytes, myelocytes, and promyelocytes. Blood smears from CBCs yielding IG's will be scanned manually for concordance. If this scan disagrees with the automated IG or if promyelocytes are noted, a manual differential will be performed. Immature Gran Absolute 0.01 0.00 - 0.04 x10(3)/mc L [facility] Blood 03/06/2023 7:45 AM EST 03/06/2023 8:00 AM EST Narrative Resulting Agency Comment Spec In Lab Adrianne Ramon MD HEMATOLOGY ORDER DUONG [facility] [place] [address] * (ABNORMAL) Hemogram (03/06/2023 7:45 AM EST) White Blood Cell 5.8 4.0 - 9.5 x10(3)/mc L [facility] Red Blood Cell 3.67(L) 4.58 - 5.54 x10(6)/mc L [facility] Hemoglobin 11.3(L) 13.7 - 16.5 g/dL [facility] Hematocrit 34.5(L) 40.5 - 48.5 % [facility] Mean Cell Volume 94.0(H) 82.9 - 93.1 fL [facility] Mean Cell Hemoglobin 30.8 27.5 - 32.1 pg [facility] Mean Cell Hemoglobin Concentration 32.8 32.0 - 35.7 g/dL [facility] Platelet 211 145 - 357 x10(3)/mc L [facility] RDW Standard Deviation 54.8(H) 36.0 - 45.0 fL [facility] RDW coefficient of variation 15.9(H) 11.4 - 13.8 % [facility] Mean Platelet Volume 10.2 7.6 - 12.9 fL [facility] NRBC% auto 0.0 % [facility] NRBC Absolute 0.000 0.000 - 0.000 x10(3)/mc L [facility] Blood 03/06/2023 7:45 AM EST 03/06/2023 8:00 AM EST Narrative Resulting Agency Comment Spec In Lab Adrianne Ramon MD HEMATOLOGY ORDER DUONG [facility] [place] [address] * (ABNORMAL) Comprehensive metabolic panel (non-fasting) (03/06/2023 7:45 AM EST) Glucose 133 65 - 199 mg/dL [facility] Comment:Diabetes: >=200 mg/d L plus symptoms Blood Urea Nitrogen 12 10 - 20 mg/dL [facility] Creatinine 0.94 0.80 - 1.50 mg/dL [facility] Sodium 143 135 - 145 mmol/L [facility] Potassium 3.7 3.5 - 5.0 mmol/L [facility] Comment: Please note: ??Patients with WBC >100,000 may have falsely elevated Potassium levels. ??For accurate Potassium quantification in these patients send serum separator tube (gold top) for subsequent determinations. ??Contact the Clinical Chemistry Laboratory if there are any questions. Chloride 108(H) 98 - 107 mmol/L [facility] Carbon Dioxide 23 22 - 31 mmol/L [facility] Anion Gap 12 5 - 15 mmol/L [facility] Calcium 9.6 8.5 - 10.5 mg/dL [facility] Protein, Total 6.4 6.1 - 8.0 g/dL [facility] Albumin 4.1 3.2 - 5.2 g/dL [facility] Aspartate Aminotransferase 22 0 - 39 unit/L [facility] Alanine Aminotransferase 18 0 - 55 unit/L [facility] Alkaline Phosphatase 103 40 - 130 unit/L [facility] Bilirubin, Total 0.2 0.2 - 1.3 mg/dL [facility] Est Glomerular Filtration Rate 85 >=60 mL/min/1. 73 m?? [facility] Comment: This patient's estimated GFR was [...] Lab Adrianne Ramon MD CHEMISTRY ORDERA BLEDiogenes Performing Organization Address [facility] de Phone Number [facility] [place] [address] * (ABNORMAL) Immunoglobulins, Quantitative (03/06/2023 7:45 AM EST) Immunoglobulin G 572(L) 700 - 1,600 mg/dL [facility] Comment: Pediatric Reference Intervals obtained from the Caliper Reference Interval project. http://www.[employer]ca/caliperproject/index.html IgA 118 70 - 400 mg/dL [facility] IgM 123 40 - 230 mg/dL [facility] Blood 03/06/2023 7:45 AM EST 03/06/2023 8:00 AM EST Narrative Resulting Agency Comment Spec In Lab Adrianne Ramon MD CHEMISTRY ORDERA BLEDiogenes Performing Organization Address [facility] Co de Phone Number [facility] [place] [address] * Lactate Dehydrogenase (03/06/2023 7:45 AM EST) Lactate Dehydrogenase 198 110 - 220 unit/L [facility] Blood 03/06/2023 7:45 AM EST 03/06/2023 8:00 AM EST Narrative Resulting Agency Comment Spec In Lab Adrianne Ramon MD CHEMISTRY ORDERA BLEDiogenes [facility] [place] [address] * Uric acid (03/06/2023 7:45 AM EST) Uric Acid 5.5 3.5 - 8.5 mg/dL [facility] Blood 03/06/2023 7:45 AM EST 03/06/2023 8:00 AM EST Narrative Resulting Agency Comment Spec In Lab Adrianne Ramon MD CHEMISTRY ORDERA BLES [facility] [place] [address] documented in this encounter Visit Diagnoses Diagnosis [...] Sun03/06/23 at 0740, Until Sun03/07/23 at 0433, Pediatric Clinical Nurse Specialist, Routine Given 03/06/2023 7:50 AM EST 20 mLs documented in this encounter Care Teams Staff Forester Relationship Specialty Start Date End Date Frederick Meade MD [address] [facility] [address] [place] [address] PCP - General Family Medicine 11/29/17 documented as of this encounter
--- OUTSIDE RECORDS SUMMARY | 2023-10-11 03:40 | XMS_ITS | Encounter Summary ---
Author Organization [facility] Address [facility] [place] [address] Care Team Providers Care Sales Service Assistant Name Role Phone Frederick Meade MD Primary Care Provider [phone] Encounter Details Date Type Department Care Team (Late st Contact Info) Description 03/14/2023 11:30 AM EST Office Visit Hematology/Oncology at [address] [address] Adrianne Ramon MD [facility] DR [place] [address] Yael Merlos APRN [facility] DR [place] [address] Diffuse large B-cell lymphoma of lymph nodes [...] - 03/14/2023 11:30 AM EST Hematology Clinic [facility] [place] [address] HEMATOLOGY PATIENT EVALUATION PROBLEM LIST: Patient Active [...] ~2 weeks ago saw [facility] in [facility] and when to [facility]. No beds so sent to [facility] for [address]. [address] [...] and needle of cervical LN. FISH from [place] No MYCrearrangement and no fusion of MYC [...] only 1 biologic. Son Cheo Freire. Enjoys docTrackr, movies, race car, cards. [employer]. 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 Not a . ETOH: 1-3 beers per week Smoking: Quit 1985. Approximately 04-cphg-kaym history Vaping or electronic cigarettes: denies Chewing [...] and BCL-2 protein (Double Expressor.) Flow cytometry ([id number]) supports this interpretation. FISH from [place] No MYC rearrangement and no fusion of MYC and IGH was observed, CD3 (SP7, [employer]) Background T-cells CD20 (L26, [place]) diffusely positive in Neoplastic B-cells PAX-5 (1EW, [employer]) diffusely positive in Neoplastic B-cells CD10 (SP67, [employer]) Negative BCL-6 (G/191E/A8, [employer]) Positive MUM-1 (MUM1p, [employer]) Positive Myc (Y69, [employer]) Positive BCL-2 Oncoprotein (124, [employer]) Positive Ki67 (MIB-1) (K2, [employer]) Greater than 95% of cells in cycle Cyclin D1(SP4-R, [employer]) Negative SAPPHIRE JOSE ([id number], [employer]) Negative. DIAGNOSTICS: 01/25/23 ECHO after C#5 [...] undergo investigation with ultrasound. CT CAP at [facility], report and images have been requested. [...] to Feb 2028. Send PET images to [facility] for future comparison w/ surveillance CT [...] AM EDT Infusion Hematology Oncology at [address] [address] 10/17/2023 1:00 PM EDT TH Visit (TeleHealth) Hematology/Oncology at [address] [address] Adrianne Ramon MD [facility] DR [place] [address] Yael Merlos, [facility] [place] [address] 10/17/2023 1:30 PM EDT Infusion Hematology Oncology at [address] [phone] 11/14/2023 9:30 AM EDT Office Visit Hematology/Oncology at [address] [phone] Adrianne Ramon MD [facility] [place] [address] Yael Merlos [facility] [place] [address] 11/14/2023 10:00 AM EDT Infusion Hematology Oncology at [address] [phone] documented as of this encounter Visit Diagnoses Diagnosis Diffuse large B-cell lymphoma of lymph nodes of multiple regions Iron deficiency anemia, unspecified iron deficiency anemia type documented in this encounter Care Teams Sales Service Assistant Relationship Specialty Start Date End Date Frederick Meade MD [address] [place] [address] PCP - General Family Medicine 11/29/17 documented as of this encounter
--- OUTSIDE RECORDS SUMMARY | 2023-10-11 03:40 | XMS_ITS | Encounter Summary ---
Author Organization [facility] [place] [address] Care Team Providers Care Picture Framer Name Role Phone Frederick Meade MD Primary Care Provider [phone] Reason for Visit * Reason Comments Follow-up Encounter Details Date Type Department Care Team (Late st Contact Info) Description 11/22/2022 11:30 AM EDT Office Visit Hematology/Oncology at [address] [phone] dArianne Ramon MD [facility] DR [place]AT[place] [address] Yael Merlos, LASER TECHNICIAN [facility] DR [place]EMAT[place] [address] Diffuse large B-cell lymphoma of lymph nodes [...] - 11/22/2022 11:30 AM EDT Hematology Clinic [facility] [place] [address] HEMATOLOGY PATIENT EVALUATION Patient Active Problem List [...] weeks ago saw [facility] in [facility] and when to [facility]. No beds so sent to [facility] for [address] CAP, [...] has been trying to work through the grounds caretaker trying to obtain a supply to complete [...] and needle of cervical LN. FISH from [place] No MYCrearrangement and no fusion of MYC [...] only 1 biologic. Son Cheo Freire. Enjoys INTTRA, Bioxodes, Arrayit car, Fitcline. imbookin ([employer]ogby). 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 Not a . ETOH: 1-3 beers per week Smoking: Quit 1985. Approximately 94-kzck-rchp history Vaping or electronic cigarettes: denies Chewing [...] is a delightful 72-year old male in [place]. He is accompanied to the clinic by [...] and BCL-2 protein (Double Expressor.) Flow cytometry ([id number]) supports this interpretation. FISH from [place] No MYC rearrangement and no fusion of MYC and IGH was observed, CD3 (SP7, [employer] Scientific) Background T-cells CD20 (L26, [employer]) diffusely positive in Neoplastic B-cells PAX-5 (1EW, [employer]) diffusely positive in Neoplastic B-cells CD10 (SP67, [employer]) Negative BCL-6 (G/191E/A8, [employer]) Positive MUM-1 (MUM1p, [employer]) Positive Myc (Y69, [employer]cam) Positive BCL-2 Oncoprotein (124, [employer]) Positive Ki67 (MIB-1) (K2, Leica) Greater than 95% of cells in cycle Cyclin D1(SP4-R, [employer]) Negative SAPPHIRE OJSE ([id number], Leica) Negative. DIAGNOSTICS: 11/06/22 ECHO after C#1 [...] investigation with ultrasound. CT CAP at [facility], report and images have been requested. [...] 2 tabs per day. 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 No COLO in last 10 years. [...] and counseling as appropriate. Yael Merlos, MSN, LASER TECHNICIAN Nurse practitioner Section of Hematology/Oncology Copy Frederick Meade MD documented in this encounter Plan of Treatment Upcoming Encounters Date Type Department Care Team (Late st Contact Info) Description 10/11/2023 8:30 AM EDT Infusion Hematology Oncology at [address] [address] 10/17/2023 1:00 PM EDT TH Visit (TeleHealth) Hematology/Oncology at [address] [phone] Adrianne Ramon MD [facility] H[place]ATOLOGY [place] [address] Yael Merlos APRN [facility] HEMATOLOGY [place] [address] 10/17/2023 1:30 PM EDT Infusion Hematology Oncology at [address] [address] 11/14/2023 9:30 AM EDT Office Visit Hematology/Oncology at [address] [phone] Adrianne Ramon MD [facility] HEMATOLOGY [place] [address] Yael Merlos APRN [facility] HEMATOLOGY [place] [address] 11/14/2023 10:00 AM EDT Infusion Hematology Oncology at [address] [phone] documented as of this encounter Procedures Procedure [...] lung documented in this encounter Care Teams Picture Framer Relationship Specialty Start Date End Date Frederick Meade MD [address] [place] [address] PCP - General Family Medicine 11/29/17 documented as of this encounter
--- OUTSIDE RECORDS SUMMARY | 2023-10-11 03:40 | XMS_ITS | Encounter Summary ---
Author Organization [facility] [place] [address] Care Team Providers Care Over Short And Damage Clerk Name Role Phone Frederick Meade MD Primary Care Provider [phone] Reason for Visit * Reason Comments Chemotherapy [...] TC CYCLOPHOSPHAMIDE, 100MG (CYTOXAN) Adrianne Ramon MD [facility] DR HEMATOLOGY [place] [address] [facility] Infusion [address] [place] [address] Referral ID Status Reason Start Date Expiration Date Visits Re quested Visits Authorized [id number] Closed 10/11/2022 10/11/2023 1 100 Encounter Details Date Type Department Care Team (Late st Contact Info) Description 12/20/2022 8:30 AM EDT Infusion Hematology Oncology at [address] [phone] Diffuse large B-cell lymphoma of [...] OBJECTIVE LAB DATA: completed 12/20 at [facility] Pre administration: Chemotherapy orders independently [...] AM EDT Infusion Hematology Oncology at [address] [phone] 10/17/2023 1:00 PM EDT TH Visit (TeleHealth) Hematology/Oncology at [address] [phone] Adrianne Ramon MD [facility] HEMATOLOGY [place] [address] Yael Merlos OPERATIONS REPRESENTATIVE [facility] HEMATOLOGY AND [place] [address] 10/17/2023 1:30 PM EDT Infusion Hematology Oncology at [address] [address] 11/14/2023 9:30 AM EDT Office Visit Hematology/Oncology at [address] [phone] Adrianne Ramon MD [facility] HEMATOLOGY [place] [address] Yael Merlos APRN [facility] HEMATOLOGY [place] [address] 11/14/2023 10:00 AM EDT Infusion Hematology Oncology at [address] [phone] documented as of this encounter [...] 2 minutes is a recommendation from the wheel polisher. Administer prior to chemotherapy., Routine Given 12/20/2022 [...] (IV) Procedure: Accessing Implanted Vascular Access Devices (884) procedure and/or Intravenous (IV) Job Aid: Adult Flushing & Catheter Care (6129) job aid for additional information regarding guidelines [...] mL/hr documented in this encounter Care Teams Over Short And Damage Clerk Relationship Specialty Start Date End Date Frederick Meade MD [address] [place] [address] [address] [facility] [place] [address] PCP - General Family Medicine 11/29/17 documented as of this encounter
--- OUTSIDE RECORDS SUMMARY | 2023-10-11 03:40 | XMS_ITS | Encounter Summary ---
[place] [address] Care Team Providers Care Home School Liaison Officer Name Role Phone Frederick Meade MD Primary Care Provider [phone] Reason for Visit * Diagnostic Test (Routine) - Closed Specialty Diagnoses / Procedures Referred By Contac t Referred To Contact Radiology Diagnoses Diffuse large B-cell lymphoma of lymph nodes of multiple regions Procedures NM PET CT Standard Plus Extremities and Head Yael Merlos PASTRY FINISHER [facility] [place] [address] [place] [address] Referral ID Status Reason Start Date Expiration Date V isits Requested Visits Authorized [id number] Closed Specialty Service Requested 12/20/2022 06/19/2024 1 1 Encounter Details Date Type Department Care Team (Latest Contact Info) Description 01/05/2023 7:19 AM EST - 01/05/2023 11:59 PM [facility] Hospital En[place] [address] Yael Merlos PASTRY FINISHER [facility] [place]OLOGY [place] [address] Discharge Disposition: Home Social History [...] tablet Take 5 mg by mouth daily. GuardlyUCH ULTRA BLUE TEST STRIP Strip USE TO [...] AM EDT Infusion Hematology Oncology at [address] [address] 10/17/2023 1:00 PM EDT TH Visit (TeleHealth) Hematology/Oncology at [address] [address] Adrianne Ramon MD [facility] DR HEMATOLOGY [place] [address] Yael Merlos APRN [facility] [place] [address] 10/17/2023 1:30 PM EDT Infusion Hematology Oncology at [address] [phone] 11/14/2023 9:30 AM EDT Office Visit Hematology/Oncology at [address] [phone] Adrianne Ramon MD [facility] DR [place]EMATOLOGY [place] [address] Yael Merlos APRN [facility] [place]OLOGY [place] [address] 11/14/2023 10:00 AM EDT Infusion Hematology Oncology at [address] [phone] documented as of this encounter Procedures Procedure Name Priority Date/Time Associated Diagnosis Comments NM PET CT STANDARD PLUS EXTREMITIES AND HEAD Routine 01/05/2023 9:05 AM EST Diffuse large B-cell lymphoma of lymph nodes of multiple regions POCT GLUCOSE Routine 01/05/2023 7:26 AM EST documented in this encounter Results * POCT Glucose (01/05/2023 7:26 AM EST) Glucose, POC 124 65 - 199 mg/dL [facility] Comment: Supplemental ranges: <140 mg/dL before meals <180 mg/dL all other times of the day Blood 01/05/2023 7:26 AM EST 01/05/2023 7:26 AM EST Yael Merlos APRN POINT OF CARE TEST ORDERABLES [facility] [place] [address] documented in this encounter Visit Diagnoses Not on filedocumented in this encounter Care Teams Home School Liaison Officer Relationship Specialty Start Date End Date Frederick Meade MD [facility] [address] [place] [address] PCP - General Family Medicine 11/29/17 documented as of this encounter
--- OUTSIDE RECORDS SUMMARY | 2023-10-11 03:40 | XMS_ITS | Encounter Summary ---
Author Organization [facility] [place] [address] Care Team Providers Care Medium Cycle Salesperson Name Role Phone Frederick Meade MD Primary Care Provider +1 -[phone] Reason for Visit * Reason Onset Date Comments Other 11/15/2022 To ER Encounter Details Date Type Department Care Team (Late st Contact Info) Description 11/15/2022 Telephone Hematology/Oncology at [address] [phone] Polly Orellana RN Other (To [...] Ramon ask he go to ER. Called [facility] Er and gave report to RN. Recent notes faxed. documented in this encounter Plan of Treatment Upcoming Encounters Date Type Department Care Team (Late st Contact Info) Description 10/11/2023 8:30 AM EDT Infusion Hematology Oncology at [address] [address] 10/17/2023 1:00 PM EDT TH Visit (TeleHealth) Hematology/Oncology at [address] [phone] Adrianne Ramon MD [facility] HEMATOLOGY [place] [address] Yael Merlos APRN [facility] HEMATOLOGY [place] [address] 10/17/2023 1:30 PM EDT Infusion Hematology Oncology at [address] [phone] 11/14/2023 9:30 AM EDT Office Visit Hematology/Oncology at [address] [phone] Adrianne Ramon MD [facility] [address] [place] [address] Yael Merlos APRN [facility] [place] [address] 11/14/2023 10:00 AM EDT Infusion Hematology Oncology at [address] [phone] documented as of this encounter Visit Diagnoses Not on filedocumented in this encounter Care Teams Medium Cycle Salesperson Relationship Specialty Start Date End Date Frederick Meade MD [address] [facility] [address] [place] [address] PCP - General Family Medicine 11/29/17 documented as of this encounter
--- OUTSIDE RECORDS SUMMARY | 2023-10-11 03:40 | XMS_ITS | Encounter Summary ---
Author Organization [facility] [place] [place] [address] Care Team Providers Care Railcar Switcher Name Role Phone Frederick Meade MD Primary Care Provider +1 [phone] Encounter Details Date Type Department Care Team [...] AM EDT Infusion Hematology Oncology at [address] [address] 10/17/2023 1:00 PM EDT TH Visit (TeleHealth) Hematology/Oncology at [address] [address] Adrianne Ramon MD [facility] [place] [address] Yael Merlos APRN [facility] [place] [address] 10/17/2023 1:30 PM EDT Infusion Hematology Oncology at [address] [phone] 11/14/2023 9:30 AM EDT Office Visit Hematology/Oncology at [address] [address] Adrianne Ramon MD [facility] [place] [address] Yael Merlos APRN [facility] [place] [address] 11/14/2023 10:00 AM EDT Infusion Hematology Oncology at [address] [address] documented as of this encounter Visit Diagnoses Not on filedocumented in this encounter Care Teams Railcar Switcher Relationship Specialty Start Date End Date Frederick Meade MD [address] [place] [address] PCP - General Family Medicine 11/29/17 documented as of this encounter
--- OUTSIDE RECORDS SUMMARY | 2023-10-11 03:40 | XMS_ITS | Encounter Summary ---
Author Organization [facility] [place] [address] Care Team Providers Care Awning Maker Name Role Phone Frederick Meade MD Primary Care Provider +1 [phone] Encounter Details Date Type Department Care Team [...] AM EDT Infusion Hematology Oncology at [address] [address] 10/17/2023 1:00 PM EDT TH Visit (TeleHealth) Hematology/Oncology at [address] [address] Adrianne Ramon MD [facility] [place] [address] Yael Merlos APRN [facility] [place] [address] 10/17/2023 1:30 PM EDT Infusion Hematology Oncology at [address] [address] 11/14/2023 9:30 AM EDT Office Visit Hematology/Oncology at [address] [address] Adrianne Ramon MD [facility] [place] [address] Yael Merlos APRN [facility] [place] [address] 11/14/2023 10:00 AM EDT Infusion Hematology Oncology at [address] [address] documented as of this encounter Visit Diagnoses Not on filedocumented in this encounter Care Teams Awning Maker Relationship Specialty Start Date End Date Frederick Meade MD [address] [place] [address] PCP - General Family Medicine 11/29/17 documented as of this encounter
--- OUTSIDE RECORDS SUMMARY | 2023-10-11 03:40 | XMS_ITS | Encounter Summary ---
Author Organization [facility] [place] [address] Care Team Providers Care Hand Driller Name Role Phone Frederick Meade MD Primary Care Provider [phone] [phone] Encounter Details Date Type Department Care Team [...] AM EDT Infusion Hematology Oncology at [address] [address] 10/17/2023 1:00 PM EDT TH Visit (TeleHealth) Hematology/Oncology at [address] [address] Adrianne Ramon MD [facility] HEMATOLOGY [place] [address] Yael Merlos APRN [facility] HEMATOLOGY [place] [address] 10/17/2023 1:30 PM EDT Infusion Hematology Oncology at [address] [address] 11/14/2023 9:30 AM EDT Office Visit Hematology/Oncology at [address] [address] Adrianne Ramon MD [facility] HEMATOLOGY [place] [address] Yael Merlos APRN [facility] HEMATOLOGY [place] [address] 11/14/2023 10:00 AM EDT Infusion Hematology Oncology at [address] [phone] documented as of this encounter Visit Diagnoses Not on filedocumented in this encounter Care Teams Hand Driller Relationship Specialty Start Date End Date Frederick Meade MD [address] [place] [address] PCP - General Family Medicine 11/29/17 documented as of this encounter
--- OUTSIDE RECORDS SUMMARY | 2023-10-11 03:40 | XMS_ITS | Encounter Summary ---
Author Organization [facility] [place] [address] Care Team Providers Care Hand Ii Thermal Cutter Name Role Phone Frederick Meade MD Primary Care Provider +1 [phone] Reason for Visit * Reason Comments Chemotherapy [...] 100MG (CYTOXAN) Adrianne Ramon MD [facility] [address] [place] [address] [facility] Infusion [address] [place] [address] Referral ID Status Reason Start Date Expiration Date Visits Re quested Visits Authorized [id number] Closed 10/11/2022 10/11/2023 1 100 Encounter Details Date Type Department Care Team (Late st Contact Info) Description 11/29/2022 9:30 AM EDT Infusion Hematology Oncology at [address] [phone] Diffuse large B-cell lymphoma of [...] treatment. OBJECTIVE LAB DATA: completed 11/29 at [facility] Pre administration: Chemotherapy orders independently verified [...] AM EDT Infusion Hematology Oncology at [address] [address] 10/17/2023 1:00 PM EDT TH Visit (TeleHealth) Hematology/Oncology at [address] [address] Adrianne Ramon MD [facility] [place] [address] Yael Merlos APRN [facility] [place] [address] 10/17/2023 1:30 PM EDT Infusion Hematology Oncology at [address] [address] 11/14/2023 9:30 AM EDT Office Visit Hematology/Oncology at [address] [address] Adrianne Ramon MD [facility] HEMATOLOGY [place] [address] Yael Merlos APRN [facility] HEMATOLOGY [place] [address] 11/14/2023 10:00 AM EDT Infusion Hematology Oncology at [address] [phone] documented as of this encounter [...] 2 minutes is a recommendation from the judicial clerk. Administer prior to chemotherapy., Routine Given 11/29/2022 [...] (IV) Procedure: Accessing Implanted Vascular Access Devices (704) procedure and/or Intravenous (IV) Job Aid: Adult Flushing & Catheter Care (3802) job aid for additional information regarding guidelines [...] Job Aid: Adult Flushing & Catheter Care (2140) job aid for additional information regarding guidelines [...] mL/hr documented in this encounter Care Teams Hand Ii Thermal Cutter Relationship Specialty Start Date End Date Frederick Meade MD [address] [place] [address] PCP - General Family Medicine 11/29/17 documented as of this encounter
--- OUTSIDE RECORDS SUMMARY | 2023-10-11 03:40 | XMS_ITS | Encounter Summary ---
Author Organization [facility] [place] [address] Care Team Providers Care Color Stripper Name Role Phone Frederick Meade MD Primary Care Provider [phone] -[phone] Encounter Details Date Type Department Care Team [...] AM EDT Infusion Hematology Oncology at [address] [address] 10/17/2023 1:00 PM EDT TH Visit (TeleHealth) Hematology/Oncology at [address] [address] Adrianne Ramon MD [facility] HEMATOLOGY [place] [address] Yael Merlos APRN [facility] HEMATOLOGY [place] [address] 10/17/2023 1:30 PM EDT Infusion Hematology Oncology at [address] [address] 11/14/2023 9:30 AM EDT Office Visit Hematology/Oncology at [address] [address] Adrianne Ramon MD [facility] HEMATOLOGY [place] [address] Yael Merlos APRN [facility] HEMATOLOGY [place] [address] 11/14/2023 10:00 AM EDT Infusion Hematology Oncology at [address] [address] documented as of this encounter Visit Diagnoses Not on filedocumented in this encounter Care Teams Color Stripper Relationship Specialty Start Date End Date Frederick Meade MD [address] [place] [address] PCP - General Family Medicine 11/29/17 documented as of this encounter
--- OUTSIDE RECORDS SUMMARY | 2023-10-11 03:40 | XMS_ITS | Encounter Summary ---
[place] [address] Care Team Providers Care Floorworker Lasting Name Role Phone Frederick Meade MD Primary Care Provider +1 -[phone] Reason for Referral * Diagnostic Test (Routine) - Closed Specialty Diagnoses / Procedures Referred By Contac t Referred To Contact Radiology Diagnoses Diffuse large B-cell lymphoma of lymph nodes of multiple regions Procedures NM PET CT Skull Base to Mid-thigh Yael Merlos AGRICULTURAL ECONOMICS TEACHER [facility] DR [place] [address] [place] [address] Referral ID Status Reason Start Date Expiration Date V isits Requested Visits Authorized [id number] Closed Specialty Service Requested 01/15/2023 07/15/2024 1 1 Reason for Visit * Diagnostic Test (Routine) - Closed Specialty Diagnoses / Procedures Referred By Contac t Referred To Contact Radiology Diagnoses Diffuse large 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 Procedures NM PET CT Skull Base to Mid-thigh Yael Merlos AGRICULTURAL ECONOMICS TEACHER [facility] [place] [address] [place] [address] Referral ID Status Reason Start Date Expiration Date V isits Requested Visits Authorized [id number] Closed Specialty Service Requested 01/15/2023 07/15/2024 1 1 Encounter Details Date Type Department Care Team (Latest Contact Info) Description 03/06/2023 7:52 AM EST - 03/06/2023 11:59 PM EST Hospital Encounter [place] [phone] Yael Merlos APRN [facility] DR [place] [address] Diffuse large B-cell lymphoma of lymph nodes [...] AM EDT Infusion Hematology Oncology at [address] [address] 10/17/2023 1:00 PM EDT TH Visit (TeleHealth) Hematology/Oncology at [address] [phone] Adrianne Ramon MD [facility] HEMATOLOGY AND [place] [address] Yael Merlos [facility] [place] [address] 10/17/2023 1:30 PM EDT Infusion Hematology Oncology at [address] [phone] 11/14/2023 9:30 AM EDT Office Visit Hematology/Oncology at [address] [phone] Adrianne Ramon MD [facility] HEMATOLOGY AND [place] [address] Yael Merlos, [facility] [place] [address] 11/14/2023 10:00 AM EDT Infusion Hematology Oncology at [address] [phone] documented as of this encounter Procedures Procedure [...] questions please contact the health career development coordinator that requested your imaging first. ? Electronically signed by: Tracey Flood MD, [facility] ??([phone]), at 03/08/2023 11:33 AM Narrative 03/08/2023 11:33 AM EST EXAMINATION: NM PET CT STANDARD SKULL BASE TO MID-THIGH CLINICAL HISTORY: Hematologic malignancy, assess treatment response History of diffuse large B-cell lymphoma, status post 6 cycles of RCHOP. TECHNIQUE: Following IV injection of 71-eqooic-5-deoxyglucose (FDG) a standard uptake of approximately 60 [...] of RCHOP. TECHNIQUE: Following IV injection of 87-vudquq-2-deoxyglucose (FDG) astandard uptake of approximately 60 minutes, [...] have questions please contactthe health career development coordinator that requested your imaging first. Electronically signed by: Tracey Flood MD, [facility]([phone]), at 03/08/2023 11:33 AM Yael Merlos AGRICULTURAL ECONOMICS TEACHER IMG PET ORDERABLES documented in this encounter [...] Port documented in this encounter Care Teams Floorworker Lasting Relationship Specialty Start Date End Date Frederick Meade MD [address] [place] [address] [address] [place] [address] PCP - General Family Medicine 11/29/17 documented as of this encounter
--- OUTSIDE RECORDS SUMMARY | 2023-10-11 03:40 | XMS_ITS | Encounter Summary ---
Author Organization [facility] Address [facility] [place] [address] Care Team Providers Care Warehouse Order Selector Name Role Phone Frederick Meade MD Primary Care Provider +1 [phone] Encounter Details Date Type Department Care Team (Late st Contact Info) Description 12/06/2022 2:30 PM EDT TH Visit (TeleHealth) Hematology/Oncology at [address] [phone] Adrianne Ramon MD [facility] [address] [place] [address] Diffuse large B-cell lymphoma of lymph nodes [...] - 12/06/2022 3:30 PM EDT Hematology Clinic [facility] [place] [id number] HEMATOLOGY PATIENT EVALUATION Patient Active Problem List [...] [facility] to [facility]. No beds so sent to [facility] for [address] [...] at [facility] was 01/17/2012. INTERIM HISTORY [...] and needle of cervical LN. FISH from [place] No MYCrearrangement and no fusion of MYC [...] only 1 biologic. Son Cheo Freire. Enjoys castaclip, Tyto, [employer] car, [employer]. adQ. 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 Not a . ETOH: 1-3 beers per week Smoking: Quit 1985. Approximately 62-hfha-qtyx history Vaping or electronic cigarettes: denies Chewing [...] and BCL-2 protein (Double Expressor.) Flow cytometry ([id number]) supports this interpretation. FISH from [place] No MYC rearrangement and no fusion of MYC and IGH was observed, CD3 (SP7, [employer]) Background T-cells CD20 (L26, [place]) diffusely positive in Neoplastic B-cells PAX-5 (1EW, [employer]) diffusely positive in Neoplastic B-cells CD10 (SP67, [place]) Negative BCL-6 (G/191E/A8, [place]) Positive MUM-1 (MUM1p, [employer]) Positive Myc (Y69, [employer]) Positive BCL-2 Oncoprotein (124, [place]) Positive Ki67 (MIB-1) (K2, [employer]) Greater than 95% of cells in cycle Cyclin D1(SP4-R, [place]) Negative SAPPHIRE JOSE ([id number], [employer]) Negative. DIAGNOSTICS: 11/28/22 ECHO after C#2 [...] investigation with ultrasound. CT CAP at [facility], report and images have been requested. [...] last ECHO on 11/28/22) Next ECHO at [facility] on 01/25/23 Suspected MEHNAZ - Hgb drop 3gm in last 2 weeks. No overt bleeding. Taking oral iron bid. Stools have been crap shooter recently. No COLO in last 10 years. [...] Jan 2023 - booked for 01/25/23 at [facility] Stop iron, not MEHNAZ, has anemia [...] AM EDT Infusion Hematology Oncology at [address] [phone] 10/17/2023 1:00 PM EDT TH Visit (TeleHealth) Hematology/Oncology at [address] [phone] Adrianne Ramon MD [facility] [place] [address] Yael Merlos LAW PROFESSOR [facility] [place] [address] 10/17/2023 1:30 PM EDT Infusion Hematology Oncology at [address] [phone] 11/14/2023 9:30 AM EDT Office Visit Hematology/Oncology at [address] [phone] Adrianne Ramon MD [facility] [place] [address] Yael Merlos LAW PROFESSOR [facility] [place] [address] 11/14/2023 10:00 AM EDT Infusion Hematology Oncology at [address] [phone] documented as of this encounter Procedures Procedure Name Priority Date/Time Associated Diagnosis Comments CBC (WITH DIFF) Routine 12/06/2022 COMPREHENSIVE METABOLIC PANEL Routine 12/06/2022 documented in this encounter Results * Comprehensive metabolic panel (non-fasting) (12/06/2022) Pathologist [facility] Creatinine 0.9 Potassium 3.3 Bilirubin, Total 0.3 Alkaline Phosphatase 152 Aspartate Aminotransferase 14 Alanine Aminotransferase 17 Lactate Dehydrogenase 155 Iron 34 TIBC 201 Iron Saturation 17 Ferritin 605 Blood 12/06/2022 Historical Provider CHEMISTRY ORDERAB LES * CBC (with Diff) (12/06/2022) Pathologist [facility] White Blood Cell 4.99 Hemoglobin 9.2 Hematocrit 27.9 Platelet 139 ANC 3.74 Blood 12/06/2022 Historical Provider HEMATOLOGY ORDERA BLES documented in this encounter Visit Diagnoses Diagnosis Diffuse large B-cell lymphoma of lymph nodes of multiple regions documented in this encounter Care Teams Warehouse Order Selector Relationship Specialty Start Date End Date Frederick Meade MD [address] [place] [address] PCP - General Family Medicine 11/29/17 documented as of this encounter
--- OUTSIDE RECORDS SUMMARY | 2023-10-11 03:40 | XMS_ITS | Encounter Summary ---
Author Organization [facility] Address [facility] [place] [address] Care Team Providers Care Agency Sales Director Name Role Phone Frederick Meade MD Primary Care Provider +1 -[phone] Encounter Details Date Type Department Care Team (Late st Contact Info) Description 12/20/2022 Notes Only Hematology/Oncology at [address] [phone] Shelley Cason, [facility] [place] OFFICE OF CARE MANAGEMENT Social History Tobacco [...] were approved for a toi from the [employer]. They are appreciative of this financial assistance. Cheo indicated he tolerated his last treatment much better than the first 2 so he hope his one will go well. Oferred them support as Mrs. Freire shared how challenging this is for them. Reminded them of BLUEPRINT DEVELOPER availability and will continue to follow for support and resources. Brief assessment Supportive Counseling Financial resources Community Resource documented in this encounter Plan of Treatment Upcoming Encounters Date Type Department Care Team (Late st Contact Info) Description 10/11/2023 8:30 AM EDT Infusion Hematology Oncology at [address] [address] 10/17/2023 1:00 PM EDT TH Visit (TeleHealth) Hematology/Oncology at [address] [phone] Adrianne Ramon MD [facility] HEMATOLOGY [place] [address] Yael Merlos [facility] HEMATOLOGY [place] [address] 10/17/2023 1:30 PM EDT Infusion Hematology Oncology at [address] [phone] 11/14/2023 9:30 AM EDT Office Visit Hematology/Oncology at [address] [phone] Adrianne Ramon MD [facility] HEMATOLOGY [place] [address] Yael Merlos [facility] [place]OLOGY [place] [address] 11/14/2023 10:00 AM EDT Infusion Hematology Oncology at [address] [phone] documented as of this encounter Visit Diagnoses Not on filedocumented in this encounter Care Teams Agency Sales Director Relationship Specialty Start Date End Date Frederick Meade MD [address] [place] [address] PCP - General Family Medicine 11/29/17 documented as of this encounter
--- OUTSIDE RECORDS SUMMARY | 2023-10-11 03:41 | XMS_ITS | Encounter Summary ---
Author Organization [facility] Address [facility] [place] [address] Care Team Providers Care Infantry Officer Name Role Phone Frederick Meade MD Primary Care Provider [phone] [phone] Reason for Visit * Consultation (Urgent) - Closed Specialty Diagnoses / Procedures Referred By Contac t Referred To Contact Cardiology Diagnoses Diffuse large B-cell lymphoma of lymph nodes of multiple regions CARD-ONC Pt w/o cardiac hx. New lymphoma. Needs anthracycline. Echo w/ EF 49% & mild global hypokinesis. Please eval for ongoing anthracycline safety. Adrianne Ramon MD [facility] HEMATOLOGY [place] [address] Chalo Barbosa MD [facility] [address] Referral ID Status Reason Start Date Expiration Date V isits Requested Visits Authorized [id number] Closed Consult, Test & Treat 10/12/2022 10/12/2023 1 1 Encounter Details Date Type Department Care Team (Latest Contact Info) Description 11/06/2022 2:10 PM EDT Office Visit Cardiology at [place] [phone] Chalo Barbosa MD [facility] [place] [address] Abnormal echocardiogram Social History Tobacco Use Types [...] the original note were not included. Formerly [facility] Mike, CHAD [address] CARDIO-ONCOLOGY CONSULTATION Cheo Santos Teressagisell Primary Care [...] Office Visit from 11/06/2022 in Cardiology at [facility] Office Visit from 10/18/2022 in Hematology/Oncology at [facility] Weight 93 kg (205 lb) 1 [...] AM EDT Infusion Hematology Oncology at [address] [address] 10/17/2023 1:00 PM EDT TH Visit (TeleHealth) Hematology/Oncology at [address] [address] Adrianne Ramon MD [facility] HEMATOLOGY [place] [address] Yael Merlos, [facility] HEMATOLOGY [place] [address] 10/17/2023 1:30 PM EDT Infusion Hematology Oncology at [address] [address] 11/14/2023 9:30 AM EDT Office Visit Hematology/Oncology at [address] [phone] Adrianne Ramon MD [facility] HEMATOLOGY [place] [address] Yael Merlos, [facility] HEMATOLOGY [place] [address] 11/14/2023 10:00 AM EDT Infusion Hematology Oncology at [address] [phone] Scheduled Referrals Name Type Priority Associated Diagnoses Order Schedule Referral to Cardiology Outpatient Referral Urgent Diffuse large B-cell lymphoma of lymph nodes of multiple regions Ordered: 10/12/2022 documented as of this encounter Visit Diagnoses Diagnosis Abnormal echocardiogram Nonspecific (abnormal) findings on radiological and other examination of other intrathoracic organs documented in this encounter Care Teams Infantry Officer Relationship Specialty Start Date End Date Frederick Meade MD [address] [place] [address] PCP - General Family Medicine 11/29/17 documented as of this encounter
--- OUTSIDE RECORDS SUMMARY | 2023-10-11 03:41 | XMS_ITS | Encounter Summary ---
Author Organization [facility] [place] [address] Care Team Providers Care Bank Boss Name Role Phone Frederick Meade MD Primary Care Provider [phone] [phone] Reason for Visit * Reason Onset Date Comments Questions 11/14/2022 Encounter Details Date Type Department Care Team (Late st Contact Info) Description 11/14/2022 Telephone Hematology/Oncology at [address] [phone] Colt Ardon, RN Questions Social [...] - 11/14/2022 11:09 AM EDT Reviewed with Cheomelony Freire and spouse okay to have stools [...] [facility] are soft formed, not loose He has been taking Metamucil regularly, his wants to make sure that is normal Best call back number [phone] documented in this encounter Plan of Treatment Upcoming Encounters Date Type Department Care Team (Late st Contact Info) Description 10/11/2023 8:30 AM EDT Infusion Hematology Oncology at [address] [address] 10/17/2023 1:00 PM EDT TH Visit (TeleHealth) Hematology/Oncology at [address] [address] Adrianne Ramon MD [facility] [place] [address] Yael Merlos, [facility] [place] [address] 10/17/2023 1:30 PM EDT Infusion Hematology Oncology at [address] [phone] 11/14/2023 9:30 AM EDT Office Visit Hematology/Oncology at [address] [phone] Adrianne Ramon MD [facility] [place] [address] Yael Merlos, [facility] [place] [address] 11/14/2023 10:00 AM EDT Infusion Hematology Oncology at [address] [phone] documented as of this encounter Visit Diagnoses Not on filedocumented in this encounter Care Teams Bank Boss Relationship Specialty Start Date End Date Frederick Meade MD [address] [place] [address] [address] PCP - General Family Medicine 11/29/17 documented as of this encounter
--- OUTSIDE RECORDS SUMMARY | 2023-10-11 03:41 | XMS_ITS | Encounter Summary ---
Author Organization [facility] Address [facility] [place] [address] Care Team Providers Care Retail Store Associate Name Role Phone Frederick Meade MD Primary Care Provider [phone] [phone] Encounter Details Date Type Department Care Team (Late st Contact Info) Description 11/08/2022 Notes Only Hematology/Oncology at [address] [phone] Shelley Cason, [facility] OFFICE OF CARE MANAGEMENT Social History Tobacco [...] needs today. Offered support. Reminded Cheo of LIBRARIAN SPECIALIST availability and will continue to follow as indicated. Brief assessment Supportive Counseling documented in this encounter Plan of Treatment Upcoming Encounters Date Type Department Care Team (Late st Contact Info) Description 10/11/2023 8:30 AM EDT Infusion Hematology Oncology at [address] [address] 10/17/2023 1:00 PM EDT TH Visit (TeleHealth) Hematology/Oncology at [address] [address] Adrianne Ramon MD [facility] [place] [address] Yael Merlos KARLA [facility] [place] [address] 10/17/2023 1:30 PM EDT Infusion Hematology Oncology at [address] [phone] 11/14/2023 9:30 AM EDT Office Visit Hematology/Oncology at [address] [phone] Adrianne Ramon MD [facility] [place] [address] Yael Merlos [facility] [place] [address] 11/14/2023 10:00 AM EDT Infusion Hematology Oncology at [address] [phone] documented as of this encounter Visit Diagnoses Not on filedocumented in this encounter Care Teams Retail Store Associate Relationship Specialty Start Date End Date Frederick Meade MD [address] [address] PCP - General Family Medicine 11/29/17 documented as of this encounter
--- OUTSIDE RECORDS SUMMARY | 2023-10-11 03:41 | XMS_ITS | Encounter Summary ---
Author Organization [facility] [place] [address] Care Team Providers Care Rn Plastics Name Role Phone Frederick Meade MD Primary Care Provider [phone] [phone] Reason for Referral * Diagnostic Test (Routine) - Closed Specialty Diagnoses / Procedures Referred By Contac t Referred To Contact Radiology Diagnoses Non-Hodgkin lymphoma of lymph nodes of multiple regions, unspecified non-Hodgkin lymphoma type Diffuse large B-cell lymphoma of lymph nodes of multiple regions Procedures NM PET CT Standard Plus Extremities and Head Adrianne Ramon MD [facility] [address] [place] [address] [place] [address] Referral ID Status Reason Start Date Expiration Date V isits Requested Visits Authorized [id number] Closed Specialty Service Requested 10/10/2022 04/12/2024 1 [...] Plus Extremities and Head Adrianne Ramon MD [facility] [address] [place] [address] [facility] [address] Referral ID Status Reason Start Date Expiration Date V isits Requested Visits Authorized [id number] Closed Specialty Service Requested 10/10/2022 04/12/2024 1 2 Encounter Details Date Type Department Care Team (Late st Contact Info) Description 10/12/2022 10:26 AM EDT - 10/12/2022 11:59 PM EDT Hospital Encounter [place] [phone] Adrianne Ramon MD [facility] [address] [place] [address] Non-Hodgkin lymphoma of lymph nodes [...] AM EDT Infusion Hematology Oncology at [address] [address] 10/17/2023 1:00 PM EDT TH Visit (TeleHealth) Hematology/Oncology at [address] [address] Adrianne Ramon MD [facility] HEMATOLOGY AND ON[place]OGY [place] [phone] Yael Merlos, KARLA [facility] HEMATOLOGY [place] [address] 10/17/2023 1:30 PM EDT Infusion Hematology Oncology at [address] [phone] 11/14/2023 9:30 AM EDT Office Visit Hematology/Oncology at [address] [phone] Adrianne Ramon MD [facility] HEMATOLOGY [place] [address] Yael Merlos APRN [facility] HEMATOLOGY [place] [address] 11/14/2023 10:00 AM EDT Infusion Hematology Oncology at [address] [phone] documented as of this encounter [...] resident's interpretation and agree with the findings, Rhoan Henley MD at 10/12/2022 3:23 PM Thank you for letting us participate in the care of this patient. ??If you are a health care provider and have any questions regarding this report, please contact the number below. ??For patients who have questions please contact the health complex care nurse practitioner that requested your imaging first. ? Electronically signed by: Rohan Henley MD, [facility] ([phone]), at 10/12/2022 3:23 PM Narrative 10/12/2022 3:23 PM EDT EXAMINATION: NM PET CT STANDARD PLUS EXTREMITIES AND HEAD CLINICAL HISTORY: Non-Hodgkin lymphoma, staging new large B cell lymphoma - involving oropharynx/ cervical. ??staging. TECHNIQUE: Procedure: Following IV injection of 02-gzizjd-3-deoxyglucose (FDG) a standard uptake of approximately 60 [...] staging. TECHNIQUE: Procedure: Following IV injection of 17-avptbg-6-deoxyglucose(FDG) a standard uptake of approximately 60 minutes, [...] questions please contactthe health complex care nurse practitioner that requested your imaging first. Electronically signed by: Rohan Henley MD, [facility]([phone]), at 10/12/2022 3:23 PM Adrianne Ramon MD [...] mCi documented in this encounter Care Teams Rn Plastics Relationship Specialty Start Date End Date Frederick Meade MD [address] [place] [address] PCP - General Family Medicine 11/29/17 documented as of this encounter
--- OUTSIDE RECORDS SUMMARY | 2023-10-11 03:41 | XMS_ITS | Encounter Summary ---
Author Organization [facility] Address [facility] [place] [address] Care Team Providers Care Electronics Test Engineer Name Role Phone Frederick Meade MD Primary Care Provider [phone] [phone] Reason for Visit * Reason Onset Date Comments Other 10/30/[address] [facility] Encounter Details Date Type Department Care Team (Late st Contact Info) Description 10/30/2022 Telephone Hematology/Oncology at [address] [phone] Lucía Nelson RN Other (FUV questions after admission to [facility]) Social History Tobacco Use Types Packs/Day Years [...] - 10/30/2022 10:39 AM EDT Cheo Freire [id number] Cheo [facility]25-10[facility]29 for fevers and neutropenia. Missed his pita apt that Shayy Jarrett APRN was going to do last week. [facility] Cycle 1 10/18. Cycle 2- [...] AM EDT Infusion Hematology Oncology at [address] [address] 10/17/2023 1:00 PM EDT TH Visit (TeleHealth) Hematology/Oncology at [address] [phone] Adrianne Ramon MD [facility] HEMATOLOGY [place] [address] Yael Merlos APRN [facility] HEMATOLOGY [place] [address] 10/17/2023 1:30 PM EDT Infusion Hematology Oncology at [address] [address] 11/14/2023 9:30 AM EDT Office Visit Hematology/Oncology at [address] [address] Adrianne Ramon MD [facility] HEMATOLOGY [place] [address] Yael Merlos APRN [facility] HEMATOLOGY [place] [address] 11/14/2023 10:00 AM EDT Infusion Hematology Oncology at [address] [phone] documented as of this encounter Visit Diagnoses Not on filedocumented in this encounter Care Teams Electronics Test Engineer Relationship Specialty Start Date End Date Frederick Meade MD [address] [place] [address] PCP - General Family Medicine 11/29/17 documented as of this encounter
--- OUTSIDE RECORDS SUMMARY | 2023-10-11 03:41 | XMS_ITS | Encounter Summary ---
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 Procedures IR [facility] Adrianne Nino MD [facility] [address] [place] [address] [facility] [place] [address] Referral ID Status Reason Start Date Expiration Date V isits Requested Visits Authorized [id number] Closed Specialty Service Requested 10/11/2022 04/13/2024 1 1 Reason for Visit * Diagnostic Test (Routine) - Closed Specialty Diagnoses / Procedures Referred By Contac t Referred To Contact Radiology Diagnoses Diffuse large B-cell lymphoma of lymph nodes of multiple regions Procedures IR [facility] Adrianne Nino MD [facility] DR HEMATOLOG[place] [address] [facility] [place] [address] Referral ID Status Reason Start Date Expiration Date V isits Requested Visits Authorized [id number] Closed Specialty Service Requested 10/11/2022 04/13/2024 1 1 Encounter Details Date Type Department Care Team (Late st Contact Info) Description 10/17/2022 7:32 AM EDT - 10/17/2022 11:15 AM EDT Hospital Encounter Radiology at [facility] [place] [address] Adrianne Ramon MD [facility] [address] [place] [address] Diffuse large B-cell lymphoma of lymph nodes [...] provided with an ID card stating the sales promotion director and type of port you have. Please carry this with you in a safe place. Bandage: There is a sterile dressing over the port site consisting of small gauze with a clear dressing (Tegaderm or EP2009 ). This dressing should be left in place for 48 hours. If the clear dressing becomes loose you should place tape over the edges to secure it in place. Note: If you have steri-strips beneath your dressing, simply allow them to fall off. Do not peel them off. There may be Chilchinbito-mcqueen (skin glue) also, allow this to flake [...] is during regular office hours, please call [phone]. If it is after regular office hours, or on weekends or holidays, please call [phone] and ask to speak to the Tax Clerk relations manager for Interventional Radiology. XXX You have received [...] (home) Telephone Information: PCP: Frederick Meade MD [phone] Date/Time of call: October 18, 2022/9:37 AM [...] of : 1950 AGE: 72 y.o. Address: [address] [place] [phone] (home) Mobile: Telephone Information: Referring Provider: Adrianne [...] Answers Where will study be performed? [facility] Radiology [120] Prefered insertion location: [...] reviewed: Yes Higinio Ramsey MD PGY-3 Pager #[phone] Department of Radiology [facility] 10/17/2022 Source Note - James Champion DO [...] access for chemotherapy. IR History: None at [facility]. 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 Tobacco Use Smoking status: Former Packs/day: 1.00 Types: Cigarettes Quit date: 1985 Years since quittin.6 Smokeless tobacco: Former Quit date: 02/19/1986 Tobacco comments: started smoking in [employer] Vaping Use Vaping Use: Never used Substance [...] AM EDT Infusion Hematology Oncology at [address] [address] 10/17/2023 1:00 PM EDT TH Visit (TeleHealth) Hematology/Oncology at [address] [address] Adrianne Ramon MD [facility] DR [place]EMATOLOG[place] [address] Yael Merlos, DREDGE PUMP OPERATOR [facility] DR [place] [address] 10/17/2023 1:30 PM EDT Infusion Hematology Oncology at [address] [phone] 11/14/2023 9:30 AM EDT Office Visit Hematology/Oncology at [address] [address] Adrianne Ramon MD [facility] [place]ATOLOGY [place] [address] Yael Merlos APRN [facility] [place] [address] 11/14/2023 10:00 AM EDT Infusion Hematology Oncology at [address] [phone] documented as of this encounter [...] implant Indication: Diffuse large B-cell lymphoma, durable fdc central venous access for chemotherapy Procedure summary: [...] Glucose, POC 101 65 - 199 mg/dL [facility] Comment: Supplemental ranges: <140 mg/dL before meals <180 mg/dL all other times of the day Blood 10/17/2022 8:29 AM EDT 10/17/2022 8:29 AM EDT Adrianne Ramon MD POINT OF CARE [facility] [place] [address] documented in this encounter Visit Diagnoses Diagnosis [...] mL/hr documented in this encounter Care Teams Hoof And Shoe Inspector Relationship Specialty Start Date End Date Frederick Meade MD [address] [facility] [place] [address] PCP - General Family Medicine 11/29/17 documented as of this encounter
--- OUTSIDE RECORDS SUMMARY | 2023-10-11 03:41 | XMS_ITS | Encounter Summary ---
Author Organization [facility] [place] [address] Care Team Providers Care Communicable Disease Specialist Name Role Phone Frederick Meade MD Primary Care Provider [phone] [phone] Reason for Visit * Reason Comments Chemotherapy [...] TC CYCLOPHOSPHAMIDE, 100MG (CYTOXAN) Adrianne Ramon MD [facility] [address] [place] [address] [facility] [place] [address] [place] [address] Referral ID Status Reason Start Date Expiration Date Visits Re quested Visits Authorized [id number] Closed 10/11/2022 10/11/2023 1 100 Encounter Details Date Type Department Care Team (Late st Contact Info) Description 10/18/2022 9:00 AM EDT Infusion Hematology Oncology at [address] [phone] Diffuse large B-cell lymphoma of [...] AM EDT Infusion Hematology Oncology at [address] [address] 10/17/2023 1:00 PM EDT TH Visit (TeleHealth) Hematology/Oncology at [address] [address] Adrianne Ramon MD [facility] [place] [address] Yael Merlos APRN [facility] [place] [address] 10/17/2023 1:30 PM EDT Infusion Hematology Oncology at [address] [address] 11/14/2023 9:30 AM EDT Office Visit Hematology/Oncology at [address] [phone] Adrianne Ramon MD [facility] [place] [address] Yael Merlos APRN [facility] [address] [place] [address] 11/14/2023 10:00 AM EDT Infusion Hematology Oncology at [address] [phone] documented as of this encounter Visit Diagnoses [...] 2 minutes is a recommendation from the screen printer. Administer prior to chemotherapy., Routine Given 10/18/2022 [...] Job Aid: Adult Flushing & Catheter Care (7510) job aid for additional information regarding guidelines [...] mL/hr documented in this encounter Care Teams Communicable Disease Specialist Relationship Specialty Start Date End Date Frederick Meade MD [address] [place] [address] PCP - General Family Medicine 11/29/17 documented as of this encounter
--- OUTSIDE RECORDS SUMMARY | 2023-10-11 03:41 | XMS_ITS | Encounter Summary ---
Author Organization [facility] [place] [address] Care Team Providers Care Electrical Solderer Name Role Phone Frederick Meade MD Primary Care Provider [phone] [phone] Reason for Visit * Reason Comments Chemotherapy [...] TC CYCLOPHOSPHAMIDE, 100MG (CYTOXAN) Adrianne Ramon MD [facility] DR [place] [address] [facility] [address] [place] [address] Referral ID Status Reason Start Date Expiration Date Visits Re quested Visits Authorized [id number] Closed 10/11/2022 10/11/2023 1 100 Encounter Details Date Type Department Care Team (Late st Contact Info) Description 11/08/2022 10:00 AM EDT Infusion Hematology Oncology at [address] [phone] Diffuse large B-cell lymphoma of [...] treatment. OBJECTIVE LAB DATA: completed 11/08 at [facility] Pre administration: Chemotherapy orders independently [...] AM EDT Infusion Hematology Oncology at [address] [address] 10/17/2023 1:00 PM EDT TH Visit (TeleHealth) Hematology/Oncology at [address] [address] Adrianne Ramon MD [facility] [place] [address] Yael Merlos APRN [facility] [place] [address] 10/17/2023 1:30 PM EDT Infusion Hematology Oncology at [address] [address] 11/14/2023 9:30 AM EDT Office Visit Hematology/Oncology at [address] [address] Adrianne Ramon MD [facility] HEMATOLOGY [place] [address] Yael Merlos APRN [facility] [place] [address] 11/14/2023 10:00 AM EDT Infusion Hematology Oncology at [address] [phone] documented as of this encounter [...] 2 minutes is a recommendation from the risk compliance analyst. Administer prior to chemotherapy., Routine Given 11/08/2022 [...] (IV) Procedure: Accessing Implanted Vascular Access Devices (824) procedure and/or Intravenous (IV) Job Aid: Adult Flushing & Catheter Care (5944) job aid for additional information regarding guidelines [...] Job Aid: Adult Flushing & Catheter Care (5472) job aid for additional information regarding guidelines [...] mL/hr documented in this encounter Care Teams Electrical Solderer Relationship Specialty Start Date End Date Frederick Meade MD [address] [place] [address] PCP - General Family Medicine 11/29/17 documented as of this encounter
--- OUTSIDE RECORDS SUMMARY | 2023-10-11 03:41 | XMS_ITS | Encounter Summary ---
Author Organization [facility] [place] [address] Care Team Providers Care Cleaning Custodian Name Role Phone Frederick Meade MD Primary Care Provider +1 -[phone] Encounter Details Date Type Department Care Team (Late st Contact Info) Description 10/19/2022 Telephone Hematology/Oncology at [address] [address] Brenda Priest, RN Social History [...] AM EDT Infusion Hematology Oncology at [address] [address] 10/17/2023 1:00 PM EDT TH Visit (TeleHealth) Hematology/Oncology at [address] [address] Adrianne Ramon MD [facility] HEMATOLOGY [place] [address] Yael Merlos, LOGISTICS TECH [facility] [place] [address] 10/17/2023 1:30 PM EDT Infusion Hematology Oncology at [address] [phone] 11/14/2023 9:30 AM EDT Office Visit Hematology/Oncology at [address] [phone] Adrianne Ramon MD [facility] [address] [place] [address] Yael Merlos, KARLA [facility] [place] [address] 11/14/2023 10:00 AM EDT Infusion Hematology Oncology at [address] [phone] documented as of this encounter Visit Diagnoses Not on filedocumented in this encounter Care Teams Cleaning Custodian Relationship Specialty Start Date End Date Frederick Meade MD [address] [place] [address] [address] PCP - General Family Medicine 11/29/17 documented as of this encounter
--- OUTSIDE RECORDS SUMMARY | 2023-10-11 03:41 | XMS_ITS | Encounter Summary ---
[place] [address] Care Team Providers Care Hob Grinder Name Role Phone Frederick Meade MD Primary Care Provider +1 -[phone] Encounter Details Date Type Department Care Team (Late st Contact Info) Description 10/11/2022 Notes [place] [address] James Champion, [facility] [place] [address] Social History Tobacco Use Types Packs/Day Years [...] access for chemotherapy. IR History: None at [facility]. Antiplatelets: Aspirin 81 mg daily. Anticoagulants: None. 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 HEMATOLOGY [place] [address] Yael Merlos [address]N [facility] HEMATOLOGY [place] [address] 10/17/2023 1:30 PM EDT Infusion Hematology Oncology at [address] [phone] 11/14/2023 9:30 AM EDT Office Visit Hematology/Oncology at [address] [phone] Adrianne Ramon MD [facility] HEMATOLOGY [place] [address] Yael Merlos, CURATOR OF COLLECTIONS [facility] HEMATOLOGY [place] [address] 11/14/2023 10:00 AM EDT Infusion Hematology Oncology at [address] [phone] documented as of this encounter Visit Diagnoses Not on filedocumented in this encounter Care Teams Hob Grinder Relationship Specialty Start Date End Date Frederick Meade MD [address] [place] [address] PCP - General Family Medicine 11/29/17 documented as of this encounter
--- OUTSIDE RECORDS SUMMARY | 2023-10-11 03:41 | XMS_ITS | Encounter Summary ---
Author Organization [facility] [place] [address] Care Team Providers Care Track Worker Name Role Phone Frederick Meade MD Primary Care Provider +1 -[phone] Encounter Details Date Type Department Care Team (Late st Contact Info) Description 11/15/2022 12:30 PM EDT Office Visit Hematology/Oncology at [address] [phone] Adrianne Ramon MD [facility] DR [place] [address] Yael Merlos APRN [facility] DR [place] [address] Diffuse large B-cell lymphoma of lymph nodes [...] AM EDT Infusion Hematology Oncology at [address] [phone] 10/17/2023 1:00 PM EDT TH Visit (TeleHealth) Hematology/Oncology at [address] [address] Adrianne Ramon MD [facility] HEMATOLOGY [place] [address] Yael Merlos APRN [facility] HEMATOLOGY [place] [address] 10/17/2023 1:30 PM EDT Infusion Hematology Oncology at [address] [address] 11/14/2023 9:30 AM EDT Office Visit Hematology/Oncology at [address] [address] Adrianne Ramon MD [facility] HEMATOLOGY [place] [address] Yael Merlos APRN [facility] HEMATOLOGY [place] [address] 11/14/2023 10:00 AM EDT Infusion Hematology Oncology at [address] [address] documented as of this encounter Procedures Procedure [...] regions documented in this encounter Care Teams Track Worker Relationship Specialty Start Date End Date Frederick Meade MD [address] [place] [address] PCP - General Family Medicine 11/29/17 documented as of this encounter
--- OUTSIDE RECORDS SUMMARY | 2023-10-11 03:41 | XMS_ITS | Encounter Summary ---
[place] [address] Care Team Providers Care Md Allergy Immunology Name Role Phone Frederick Meade MD Primary Care Provider +1 -[phone] Encounter Details Date Type Department Care Team (Late st Contact Info) Description 10/17/2022 Notes Only [place]ology [place] [phone] Bailey Moran, RN Social History Tobacco Use [...] AM EDT Infusion Hematology Oncology at [address] [address] 10/17/2023 1:00 PM EDT TH Visit (TeleHealth) Hematology/Oncology at [address] [phone] Adrianne Ramon MD [facility] [place] [address] Yael Merlos APRN [facility] [place] [address] 10/17/2023 1:30 PM EDT Infusion Hematology Oncology at [address] [phone] 11/14/2023 9:30 AM EDT Office Visit Hematology/Oncology at [address] [phone] Adrianne Ramon MD [facility] DR [place] [address] Yael Merlos APRN [facility] [place] [address] 11/14/2023 10:00 AM EDT Infusion Hematology Oncology at [address] [phone] documented as of this encounter Visit Diagnoses Not on filedocumented in this encounter Care Teams Md Allergy Immunology Relationship Specialty Start Date End Date Frederick Meade MD [address] [place] [address] PCP - General Family Medicine 11/29/17 documented as of this encounter
--- OUTSIDE RECORDS SUMMARY | 2023-10-11 03:41 | XMS_ITS | Encounter Summary ---
Author Organization [facility] [place] [address] Care Team Providers Care Operations Intelligence Superintendent Name Role Phone Frederick Meade MD Primary Care Provider [phone] [phone] Reason for Visit * Diagnostic Test (Routine) [...] [facility] HEMATOLOGY [place] [address] [place] [address] Referral ID Status Reason Start Date Expiration Date V isits Requested Visits Authorized [id number] Closed Specialty Service Requested 10/10/2022 04/12/2024 1 2 Encounter Details Date Type Department Care Team (Late st Contact Info) Description 10/12/2022 10:26 AM EDT - 10/12/2022 11:59 PM EDT Hospital Encounter [place] [address] Adrianne Ramon MD [facility] HEMATOLOGY [place] [address] Discharge Disposition: Home Social History [...] AM EDT Infusion Hematology Oncology at [address] [phone] 10/17/2023 1:00 PM EDT TH Visit (TeleHealth) Hematology/Oncology at [address] [phone] Adrianne Ramon MD [facility] HEMATOLOGY [place] [address] Yael Merlos APRN [facility] HEMATOLOGY [place] [address] 10/17/2023 1:30 PM EDT Infusion Hematology Oncology at [address] [address] 11/14/2023 9:30 AM EDT Office Visit Hematology/Oncology at [address] [phone] Adrianne Ramon MD [facility] HEMATOLOGY [place] [address] Yael Merlos APRN [facility] HEMATOLOGY [place] [address] 11/14/2023 10:00 AM EDT Infusion Hematology Oncology at [address] [phone] documented as of this encounter Procedures Procedure [...] Glucose, POC 113 65 - 199 mg/dL [facility] Comment: Supplemental ranges: <140 mg/dL before meals <180 mg/dL all other times of the day Blood 10/12/2022 11:0 0 AM EDT 10/12/2022 11:00 AM EDT Adrinane Ramon MD POINT OF CARE TE ST ORDERABLES [facility] [place] [address] documented in this encounter Visit Diagnoses Not on filedocumented in this encounter Care Teams Operations Intelligence Superintendent Relationship Specialty Start Date End Date Frederick Meade MD [facility] [address] [place] [address] PCP - General Family Medicine 11/29/17 documented as of this encounter
--- OUTSIDE RECORDS SUMMARY | 2023-10-11 03:41 | XMS_ITS | Encounter Summary ---
[place] [address] Care Team Providers Care Boring Machine Operator Vertical Name Role Phone Frederick Meade MD Primary Care Provider +1 -[phone] Reason for Referral * Diagnostic Test (Routine) - Closed Specialty Diagnoses / Procedures Referred By Contac t Referred To Contact Cardiology Diagnoses Diffuse large B-cell lymphoma of lymph nodes of multiple regions Procedures Echocardiogram Transthoracic Adrianne Mera MD [facility] DR HEMATOLOGY [place] [address] [facility] [place] [address] Referral ID Status Reason Start Date Expiration Date V isits Requested Visits Authorized [id number] Closed Specialty Service Requested 10/11/2022 10/11/2023 1 1 Reason for Visit * Diagnostic Test (Routine) - Closed Specialty Diagnoses / Procedures Referred By Contac t Referred To Contact Cardiology Diagnoses Diffuse large B-cell lymphoma of lymph nodes of multiple regions Procedures Echocardiogram Transthoracic Adrianne Mera MD [facility] DR HEMATOLOGY [place] [address] [facility] [place] [address] Referral ID Status Reason Start Date Expiration Date V isits Requested Visits Authorized [id number] Closed Specialty Service Requested 10/11/2022 10/11/2023 1 1 Encounter Details Date Type Department Care Team (Late st Contact Info) Description 10/12/2022 9:05 AM EDT - 10/12/2022 10:25 AM EDT Hospital Encounter Non-Invasive Cardiology Lab [facility] [address] [place] [address] Adrianne Mera MD [facility] DR HEMATOLOGY [place] [address] Diffuse large B-cell lymphoma of lymph nodes [...] AM EDT Infusion Hematology Oncology at [address] [address] 10/17/2023 1:00 PM EDT TH Visit (TeleHealth) Hematology/Oncology at [address] [address] Adrianne Mera MD [facility] HEMATOLOGY [place] [address] Yael Merlos APRN [facility] HEMATOLOGY [place] [address] 10/17/2023 1:30 PM EDT Infusion Hematology Oncology at [address] [phone] 11/14/2023 9:30 AM EDT Office Visit Hematology/Oncology at [address] [phone] Adrianne Mera MD [facility] HEMATOLOGY [place] [address] Yael Merlos APRN [facility] HEMATOLOGY [place] [address] 11/14/2023 10:00 AM EDT Infusion Hematology Oncology at [address] [phone] documented as of this encounter Procedures Procedure Name Priority Date/Time Associated Diagnosis Comments ECHO COMPLETE Routine 10/12/2022 10:00 AM EDT Diffuse large B-cell lymphoma of lymph nodes of multiple regions documented in this encounter Results * ECHO COMPLETE (10/12/2022 10:00 AM EDT) Pathologist [facility] [place] EF 49 HEART[facility] SYSTEM Anatomical Region Laterality Modality Cardiac Other 10/12/2022 9:33 AM EDT Narrative 10/12/2022 10:15 AM EDT ? Echocardiogram Report Name: CHEO MORFIN ? Study Date: 10/12/2022 09:33 AMBP: 164/86 mmHg ? Patient Location: [facility] : 1950 ? Height: 168 cm ? Account: [id number] Age: 72 yrs ? Weight: 97 kg Gender: Male ?BSA: 2.1 m2 Ordering Physician: ADRIANNE MREA Referring Physician: ADRIANNE MERA Performed By: Teresa Villafuerte YASHIRA Reason For Study: Diffuse large B-cell lymphoma of lymph nodes of multiple regions Exam Location: [facility]. Interpretation Summary Left ventricle is of [...] findings. No comparison study is available. Procedure Complete-[id number]. Satisfactory quality. Left Ventricle Left ventricle is [...] Date: 309:33 AMBP: 164/86 mmHg Patient Location: [facility] : 1950 Height: 168 cm Account: [id number] Age: 72 yrs Weight: 97 kg Gender: Male BSA: 2.1 m2 Ordering Physician: ADRIANNE MERA Referring Physician: ADRIANNE MERA Performed By: Teresa Villafuerte RDCS Reason For Study: Diffuse large B-cell lymphoma of lymph nodes ofmultiple regions Exam Location: [facility]. Interpretation Summary Left ventricle is of [...] findings. No comparison study is available. Procedure Complete-[id number]. Satisfactory quality. Left Ventricle Left ventricle is [...] mmHg . The estimated right atrial pressure [id number]. There is Grade I LV diastolic dysfunction [...] regions documented in this encounter Care Teams Boring Machine Operator Vertical Relationship Specialty Start Date End Date Frederick Meade MD [address] [facility] [place] [address] PCP - General Family Medicine 11/29/17 documented as of this encounter
--- OUTSIDE RECORDS SUMMARY | 2023-10-11 03:41 | XMS_ITS | Encounter Summary ---
Author Organization [facility] [place] [address] Care Team Providers Care Travel Registered Nurse Pacu Name Role Phone Frederick Meade MD Primary Care Provider +1 -[phone] Encounter Details Date Type Department Care Team (Late st Contact Info) Description 10/20/2022 Telephone Hematology/Oncology at [address] [phone] Maeve Nicole, RN Social History [...] Education provided: SEE ABOVE Plan: Reinforced to patient/care-senior economist to call facility 11/09 with any new/worsening signs and symptoms orconcerns or questions. Phone number provided. Pt verbalized understanding and is in agreement with plan. documented in this encounter Plan of Treatment Upcoming Encounters Date Type Department Care Team (Late st Contact Info) Description 10/11/2023 8:30 AM EDT Infusion Hematology Oncology at [address] [phone] 10/17/2023 1:00 PM EDT TH Visit (TeleHealth) Hematology/Oncology at [address] [phone] Adrianne Ramon MD [facility] HEMATOLOGY [place] [address] Yael Merlos APRN [facility] HEMATOLOGY [place] [address] 10/17/2023 1:30 PM EDT Infusion Hematology Oncology at [address] [phone] 11/14/2023 9:30 AM EDT Office Visit Hematology/Oncology at [address] [phone] Adrianne Ramon MD [facility] HEMATOLOGY [place] [address] Yael Merlos APRN [facility] HEMATOLOGY [place] [address] 11/14/2023 10:00 AM EDT Infusion Hematology Oncology at [address] [address] documented as of this encounter Visit Diagnoses Not on filedocumented in this encounter Care Teams Travel Registered Nurse Pacu Relationship Specialty Start Date End Date Frederick Meade MD [address] [place] [address] PCP - General Family Medicine 11/29/17 documented as of this encounter
--- OUTSIDE RECORDS SUMMARY | 2023-10-11 03:41 | XMS_ITS | Encounter Summary ---
Author Organization [facility] [place] [address] Care Team Providers Care Parts Fabricator Name Role Phone Frederick Meade MD Primary Care Provider +1 -[phone] Encounter Details Date Type Department Care Team [...] AM EDT Infusion Hematology Oncology at [address] [address] 10/17/2023 1:00 PM EDT TH Visit (TeleHealth) Hematology/Oncology at [address] [address] Adrianne Ramon MD [facility] [place] [address] Yael Merlos APRN [facility] [place] [address] 10/17/2023 1:30 PM EDT Infusion Hematology Oncology at [address] [address] 11/14/2023 9:30 AM EDT Office Visit Hematology/Oncology at [address] [phone] Adrianne Ramon MD [facility] [place] [address] Yael Merlos APRN [facility] [place] [address] 11/14/2023 10:00 AM EDT Infusion Hematology Oncology at [address] [phone] documented as of this encounter Visit Diagnoses Not on filedocumented in this encounter Care Teams Parts Fabricator Relationship Specialty Start Date End Date Frederick Meade MD [address] [place] [address] PCP - General Family Medicine 11/29/17 documented as of this encounter
--- OUTSIDE RECORDS SUMMARY | 2023-10-11 03:41 | XMS_ITS | Encounter Summary ---
Author Organization [facility] [place] [address] Care Team Providers Care Loft Patternmaker Name Role Phone Frederick Meade MD Primary Care Provider +1 -[phone] Encounter Details Date Type Department Care Team (Late st Contact Info) Description 11/08/2022 9:30 AM EDT Office Visit Hematology/Oncology at [address] [phone] Adrianne Mera MD [facility] DR [place] [address] Yael Merlos APRN [facility] [place] [address] Diffuse large B-cell lymphoma of lymph nodes [...] - 11/08/2022 9:30 AM EDT [place] [address] HEMATOLOGY PATIENT EVALUATION Patient Active Problem List [...] ~2 weeks ago saw [facility] [place] and when to [facility]. [facility] beds [facility] [...] - last COLO at [facility] was 01/17/2012. Cheo returns today with his [...] and needle of cervical LN. FISH from [facility] No MYCrearrangement and no fusion of MYC [...] 1 biologic. Son Cheo Freire. Enjoys [employer] Gr[employer], [employer], race car, [email or web address]. Bowling [employer]. 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 Not a . ETOH: 1-3 beers per week Smoking: Quit 1985. Approximately 90-ldrf-rfcp history Vaping or electronic cigarettes: denies Chewing [...] and BCL-2 protein (Double Expressor.) Flow cytometry ([id number]) supports this interpretation. FISH from [facility] No MYC rearrangement and no fusion of MYC and IGH was observed, CD3 (SP7, [employer]) Background T-cells CD20 (L26, [place]) diffusely positive in Neoplastic B-cells PAX-5 (1EW, [employer]) diffusely positive in Neoplastic B-cells CD10 (SP67, [place]) Negative BCL-6 (G/191E/A8, [place]) Positive MUM-1 (MUM1p, [employer]) Positive Myc (Y69, [employer]cam) Positive BCL-2 Oncoprotein (124, [place]) Positive Ki67 (MIB-1) (K2, Leica) Greater than 95% of cells in cycle Cyclin D1(SP4-R, [place]) Negative SAPPHIRE JOSE ([id number], [employer]ica) Negative. DIAGNOSTICS: 11/06/22 ECHO after C#1 [...] undergo investigation with ultrasound. CT CAP at [facility], report and images have been requested. [...] chemotherapy. Furtherprednisone prescriptions will be given by STAIN APPLICATOR, during PTI chemotherapy teaching Suspected MEHNAZ - Hgb drop 3gm in last 2 weeks. Taking oral iron 2 tabs per day. 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 No COLO in last 10 years. [...] in 3 weeks. ECHO following C#3 at [facility] - week of Dec 04 or Dec 11 I discussed all of the above with the patient and all of his questions were answered. Support and counseling as appropriate. This note was written or modified using [employer] voice recognition software. The final note was screened for cork insulator helper errors. Please excuse any remaining errors. Addendum staff message from Matthew Barbosa, Cardiology: Adrianne; Thanks for the message; will see if we can see him up in [place]. On review of his CT, he has [...] AM EDT Infusion Hematology Oncology at [address] [address] 10/17/2023 1:00 PM EDT TH Visit (TeleHealth) Hematology/Oncology at [address] [address] Adrianne Mera MD [facility] [place] [address] Yael Merlos APRN [facility] [place] [address] 10/17/2023 1:30 PM EDT Infusion Hematology Oncology at [address] [address] 11/14/2023 9:30 AM EDT Office Visit Hematology/Oncology at [address] [address] Adrianne Mera MD [facility] [place] [address] Yael Merlos INSURANCE SALES SUPERVISOR [facility] [place] [address] 11/14/2023 10:00 AM EDT Infusion Hematology Oncology at [address] [address] documented as of this encounter Procedures Procedure [...] medications documented in this encounter Care Teams Loft Patternmaker Relationship Specialty Start Date End Date Frederick Meade MD [address] [place] [address] PCP - General Family Medicine 11/29/17 documented as of this encounter
--- OUTSIDE RECORDS SUMMARY | 2023-10-11 03:41 | XMS_ITS | Encounter Summary ---
Author Organization [facility] [place] [address] Care Team Providers Care Front Sight Attacher Name Role Phone Frederick Meade MD Primary Care Provider +1 -[phone] Encounter Details Date Type Department Care Team [...] AM EDT Infusion Hematology Oncology at [address] [address] 10/17/2023 1:00 PM EDT TH Visit (TeleHealth) Hematology/Oncology at [address] [address] Adrianne Ramon MD [facility] HEMATOLOGY [place] [address] Yael Merlos APRN [facility] HEMATOLOGY [place] [address] 10/17/2023 1:30 PM EDT Infusion Hematology Oncology at [address] [address] 11/14/2023 9:30 AM EDT Office Visit Hematology/Oncology at [address] [address] Adrianne Ramon MD [facility] HEMATOLOGY [place] [address] Yael Merlos APRN [facility] HEMATOLOGY [place] [address] 11/14/2023 10:00 AM EDT Infusion Hematology Oncology at [address] [address] documented as of this encounter Visit Diagnoses Not on filedocumented in this encounter Care Teams Front Sight Attacher Relationship Specialty Start Date End Date Frederick Meade MD [address] [place] [address] PCP - General Family Medicine 11/29/17 documented as of this encounter
--- OUTSIDE RECORDS SUMMARY | 2023-10-11 03:41 | XMS_ITS | Encounter Summary ---
Author Organization [facility] [place] [address] Care Team Providers Care Mechatronics Technologist Name Role Phone Frederick Meade MD Primary Care Provider [phone] [phone] Encounter Details Date Type Department Care Team (Latest Contact Info) Description 10/11/2022 3:11 PM EDT - 10/11/2022 11:59 PM EDT [place] [phone] Discharge Disposition: Home Social History Tobacco Use [...] AM EDT Infusion Hematology Oncology at [address] [address] 10/17/2023 1:00 PM EDT TH Visit (TeleHealth) Hematology/Oncology at [address] [address] Adrianne Ramon MD [facility] [address] [place] [address] Yael Merlos APRN [facility] HEMATOLOGY [place] [address] 10/17/2023 1:30 PM EDT Infusion Hematology Oncology at [address] [address] 11/14/2023 9:30 AM EDT Office Visit Hematology/Oncology at [address] [address] Adrianne Ramon MD [facility] [place] [address] Yael Merlos APRN [facility] [place] [address] 11/14/2023 10:00 AM EDT Infusion Hematology Oncology at [address] [phone] documented as of this encounter Procedures Procedure Name Priority Date/Time Associated Diagnosis Comments SURGICAL PATHOLOGY REPORT Routine 10/11/2022 3:13 PM EDT documented in this encounter Results * Surgical Pathology Report (10/11/2022 3:13 PM EDT) Final Diagnosis [id number] ? Location: OPW The signing pathologist has (i) examined the relevant preparation(s) for the specimen(s) and (ii) rendered or confirmed the diagnosis(es). . ?Surgical Pathology DIAGNOSIS CONSULTATION CASE ?? A. TONGUE, LEFT BASE (BIOPSY); [OSR# [id number], COLLECTED 10/05/2022, 12 SLIDES]: ?? 1. Diffuse large B-cell lymphoma, activated B-cell subtype (ABC-DLBCL) (see ?comment) ?? 2. Ki67 proliferation estimated at >95%, lymphoma coexpresses BCL2 and CMYC Electronically signed by: ?Ole Bowen MD Verified: ??10/12/2022 11:37 ??Hematopathologist Performed at: ??-[facility] [place]. [place], [place] [address] Freight Conductor: Katherine Lopez MD, FCAP, ??CLIA Certificate: [id number] DISCUSSION Per report from the referring institution, ...Flow cytometry ([id number]) supports this interpretation. FISH studies were reportedly sent to [facility] to assess for MYC and [...] referring facility, but included for evaluation at [facility]. Appropriate controls are included for each case. . SPECIMEN(S) SUBMITTED CONSULTATION CASE A - 12 slide(s) labeled [id number], collection date 10/05/2022. [id number] CARBON COPY: [facility] Surgical Pathology Department [facility], [place], [address]nd [address], [place] ??[address] CLINICAL INFORMATION A 72 year old man. Per provided report, there is a clinical history of Massive LAD, history of prostate cancer; clinical diagnosis code: R59.1. SPECIMEN PROCESSING [facility] ([facility]) pathology slide(s) are reviewed. Refer to Diagnosis and Specimen Submitted for specific case information. For the full text of the [facility] report(s) please refer to the Chart Review Media tab in the electronic health record (eDH). 10/12/2022 11:37 AM EDT [facility] Consult Case 10/11/2022 3:13 PM EDT 10/11/2022 3:13 PM EDT Adrianne Ramon MD PATHOLOGY/CYTOLO GY ORDERABLES [facility] [place] [address] [facility] [place] [address] documented in this encounter Visit Diagnoses Not on filedocumented in this encounter Care Teams Mechatronics Technologist Relationship Specialty Start Date End Date Frederick Meade MD [address] [place] [address] PCP - General Family Medicine 11/29/17 documented as of this encounter
--- OUTSIDE RECORDS SUMMARY | 2023-10-11 03:41 | XMS_ITS | Encounter Summary ---
Author Organization [facility] Address [facility] [place] [address] Care Team Providers Care Cable Assembler And Swager Name Role Phone Frederick Meade MD Primary Care Provider [phone] Encounter Details Date Type Department Care Team (Late st Contact Info) Description 10/18/2022 Notes Only Hematology/Oncology at [address] [address] Shelley Cason, [facility] OFFICE OF CARE MANAGEMENT [...] this encounter Progress Notes * Shelley Cason, LOADING MACHINE OPERATOR - 10/18/2022 11:54 AM EDT Reason for Referral: Brief assessment of social and emotional needs. Met with Cheo, his Claritza and his son Cheo during his first infusion visit today to introduce myself and role of bilingual social worker to assess/address barriers to getting [...] Advance care planning Plan: Informed pt of LOADING MACHINE OPERATOR availability and contact information. Will follow to assess/address psychosocial needs. FRANCISCO J Wisdom, PACKAGING SUPERVISOR, OSW-C Geotechnical Operating Engineer [facility] documented in this encounter Plan of Treatment Upcoming Encounters Date Type Department Care Team (Late st Contact Info) Description 10/11/2023 8:30 AM EDT Infusion Hematology Oncology at [address] [address] 10/17/2023 1:00 PM EDT TH Visit (TeleHealth) Hematology/Oncology at [address] [address] Adrianne Ramon MD [facility] HEMATOLOGY [place] [address] Yael Merlos APRN [facility] HEMATOLOGY [place] [address] 10/17/2023 1:30 PM EDT Infusion Hematology Oncology at [address] [address] 11/14/2023 9:30 AM EDT Office Visit Hematology/Oncology at [address] [address] Adrianne Ramon MD [facility] HEMATOLOGY [place] [address] Yael Merlos HEARING STENOGRAPHER [facility] [address] [place] [address] 11/14/2023 10:00 AM EDT Infusion Hematology Oncology at [address] [address] documented as of this encounter Visit Diagnoses Not on filedocumented in this encounter Care Teams Cable Assembler And Swager Relationship Specialty Start Date End Date Frederick Meade MD [address] [place] [address] PCP - General Family Medicine 11/29/17 documented as of this encounter
--- OUTSIDE RECORDS SUMMARY | 2023-10-11 03:41 | XMS_ITS | Encounter Summary ---
Author Organization [facility] Address [facility] [place] [address] Care Team Providers Care Distribution Agent Name Role Phone Frederick Meade MD Primary Care Provider [phone] [phone] Reason for Visit * Reason Onset Date Comments Follow-up 10/25/2022 Pt admitted to [facility] Encounter Details Date Type Department Care Team (Late st Contact Info) Description 10/25/2022 Telephone Hematology/Oncology at [address] [phone] Colt Ardon RN Follow-up (Pt admitted to [facility] ) Social History Tobacco Use Types Packs/Day [...] to report pt is getting admitted to [facility] with dehydration and low WBC. He did end up having a bowel movement ?last night but this morning couldn't urinate and had abdominal pressure again. They went to [facility] ED. Dr Mcbride at [facility] called and is admitted him, stating hisANC was 20. Pt had cycle 1 RCHOP with Neulasta On-pro on 10/18 for his DLBCL. Team made aware. Will check in on pt's disposition tomorrow. documented in this encounter Plan of Treatment Upcoming Encounters Date Type Department Care Team (Late st Contact Info) Description 10/11/2023 8:30 AM EDT Infusion Hematology Oncology at [address] [address] 10/17/2023 1:00 PM EDT TH Visit (TeleHealth) Hematology/Oncology at [address] [address] Adrianne Ramon MD [facility] HEMATOLOGY [place] [address] Yael Merlos APRN [facility] HEMATOLOGY [place] [address] 10/17/2023 1:30 PM EDT Infusion Hematology Oncology at [address] [phone] 11/14/2023 9:30 AM EDT Office Visit Hematology/Oncology at [address] [phone] Adrianne Ramon MD [facility] HEMATOLOGY [place] [address] Yael Merlos APRN [facility] [place] [address] 11/14/2023 10:00 AM EDT Infusion Hematology Oncology at [address] [phone] documented as of this encounter Visit Diagnoses Not on filedocumented in this encounter Care Teams Distribution Agent Relationship Specialty Start Date End Date Frederick Meade MD [address] [place], [place] [address] PCP - General Family Medicine 11/29/17 documented as of this encounter
--- OUTSIDE RECORDS SUMMARY | 2023-10-11 03:41 | XMS_ITS | Encounter Summary ---
Author Organization [facility] [place] [address] Care Team Providers Care Software Engineering Specialist Name Role Phone Frederick Meade MD Primary Care Provider [phone] [phone] Reason for Referral * Consultation (Urgent) - Closed Specialty Diagnoses / Procedures Referred By Paul bowen Referred To Contact Cardiology Diagnoses Diffuse large B-cell lymphoma of lymph nodes of multiple regions CARD-ONC Pt w/o cardiac hx. New lymphoma. Needs anthracycline. Echo w/ EF 49% & mild global hypokinesis. Please eval for ongoing anthracycline safety. Adrianne Mera MD [facility] [address] [place] [address] Chalo Mcintyre MD [facility] [place] [address] Referral ID Status Reason Start Date Expiration Date V isits Requested Visits Authorized [id number] Closed Consult, Test & Treat 10/12/2022 10/12/2023 1 1 * Diagnostic Test (Routine) - Closed Specialty Diagnoses / Procedures Referred By Paul bowen Referred To Contact Cardiology Diagnoses Diffuse large B-cell lymphoma of lymph nodes of multiple regions Procedures Echocardiogram Transthoracic Adrianne Mera MD [facility] [place] [address] [facility] [place] [address] Referral ID Status Reason Start Date Expiration Date V isits Requested Visits Authorized [id number] Closed Specialty Service Requested 10/12/2022 10/12/2023 1 1 Reason for Visit * Reason Comments Follow-up Encounter Details Date Type Department Care Team (Late st Contact Info) Description 10/12/2022 1:30 PM EDT Office Visit Hematology [place] [address] Adrianne Mera MD [facility] DR [place] [address] Adrianne Aquino APRN [facility] [place] [address] Diffuse large B-cell lymphoma of [...] - 10/12/2022 1:30 PM EDT [place] [address] NEW PATIENT EVALUATION Patient Active Problem List Diagnosis Diffuse large B-cell lymphoma of lymph nodes of multiple regions Anemia, iron deficiency Gout Malignant neoplasm of prostate HISTORY OF PRESENT ILLNESS: Patient prefers to be called: Choe Support person(s) : Claritza son Cheo It [...] [facility] and when to [facility]. No beds so sent to [facility] for [address] CAP, MRI,and [...] x7 days with nice response. Pathology from [facility] reports large B-cell lymphoma. Double expresser. FISH for translocations are pending. Tongue swelling. No wt loss. Eating and drinking OK. No fevers, infections, No NS. Pain in neck.Prednisone 60mg daily X 7 days. I feel great on prednisone last day of prednisone is today Took iron supplements per PCP - unclear cause. - last COLO at [facility] was 01/17/2012. Cheo returns today with [...] only 1 biologic. Son Cheo Freire. Enjoys [employer], 5 CUPS and some sugar, race car, cards. [employer]. 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 Not a . ETOH: 1-3 beers per week Smoking: Quit 1985. Approximately 81-kvbu-apjh history Vaping or electronic cigarettes: denies Chewing [...] Result Value Ref Range Surgical Pathology Report [id number] Location: OPW The signing pathologist has (i) examined the relevant preparation(s) for the specimen(s) and (ii) rendered or confirmed the diagnosis(es). . Surgical Pathology DIAGNOSIS CONSULTATION CASE A. TONGUE, LEFT BASE (BIOPSY); [OSR# [id number], COLLECTED 10/05/2022, 12 SLIDES]: 1. Diffuse large B-cell lymphoma, activated B-cell subtype (ABC-DLBCL) (see comment) 2. Ki67 proliferation estimated at >95%, lymphoma coexpresses BCL2 and CMYC Electronically signed by: Ole Bowen MD Verified: 10/12/2022 11:37 Hematopathologist Performed at: -[facility] Dept. of [place]ology, [place] [address] Route Sales Delivery Drivers Supervisor: Katherine Lopez MD, FCAP, [place] Certificate: [id number] DISCUSSION Per report from the referring institution, ...Flow cytometry ([id number]) supports this interpretation. FISH studies were reportedly sent to [facility] to assess for MYC and BCL2 [...] referring facility, but included for evaluation at [facility]. Appropriate controls are included for each case. . SPECIMEN(S) SUBMITTED CONSULTATION CASE A - 12 slide(s) labeled [id number], collection date 10/05/2022. [id number] CARBON COPY: [facility] Surgical Pathology Department [facility], [facility], 2nd Floor [address] [place] [address] CLINICAL INFORMATION A 72 year old man. Per provided report, there is a clinical history of Massive LAD, history of prostate cancer; clinical diagnosis code: R59.1. SPECIMEN PROCESSING [facility] ([facility]) pathology slide(s) are reviewed. Refer to Diagnosis and Specimen Submitted for specific case information. For the full text of the [facility] report(s) please refer to the Chart Review [...] and BCL-2 protein (Double Expressor.) Flow cytometry ([id number]) supports this interpretation. The differential classification of [...] (SP7, Thermo Scientific) Background T-cells CD20 (L26, [place]) diffusely positive in Neoplastic B-cells PAX-5 (1EW, Leica) diffusely positive in Neoplastic B-cells CD10 (SP67, [place]) Negative BCL-6 (G/191E/A8, [place]) Positive MUM-1 (MUM1p, Dako) Positive Myc (Y69, [employer]cam) Positive BCL-2 Oncoprotein (124, [place]) Positive Ki67 (MIB-1) (K2, Leica) Greater than 95% of cells in cycle Cyclin D1(SP4-R, [place]) Negative SAPPHIRE JOSE (WSQ0512-D, Leica) Negative. DIAGNOSTICS: 10/11/22 ECHO EF = [...] undergo investigation with ultrasound. CT CAP at [facility], report and images have been requested. [...] chemotherapy. Furtherprednisone prescriptions will be given by [facility], during PTI chemotherapy teaching Cardiac - EF 49%. No stress test in past. Suspected MEHNAZ - Hgb drop 3gm in last 2 weeks. Taking oral iron 2 tabs per day. 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 No COLO in last 10 years. Will add iron studies to labs today and check PET tomorrow.Will follow. Labs seem most consistent with anemia of chronic disease. Prostate Cancer -DAVE at this time Plan: Follow up on FISH for MYC, BCL-2 and BLC-6 -UV sent these tests out to [place] Prednisone -100 mg on 10/14 and 10/15. Then restart with chemotherapy Mediport -scheduled for Sunday PTI -on 10/18 at 8 AM with Yael Merlos at [facility] Discuss cardiac function, and role of anthracycline with ejection fraction of 49% with Dr. Matthew Mcintyre - message sent today Plan allopurinol X 14 d w/ C#1 Support with Onpro Claritin x1 week status post OnPro ID - acv prophy - add antibiotics only if neutropenic. Midcycle check with Fozia Richardson on 10/25. I appreciate her help. ECHO following C#1 at [facility] approx 10/20/22 Urgent referral to cardiology. Matthew Mcintyre requested. [facility] or [place] I discussed all of the above with the patient and all of his questions were answered. Support and counseling as appropriate. This note was written or modified using [email or web address] voice recognition software. The final note was screened for ornamental metal worker apprentice errors. Please excuse any remaining errors. Addendum staff message from Matthew Mcintyre, Cardiology: Adrianne; Thanks for the message; will see if we can see him up in [place]. On review of his CT, he has [...] AM EDT Infusion Hematology Oncology at [address] [address] 10/17/2023 1:00 PM EDT TH Visit (TeleHealth) Hematology/Oncology at [address] [address] Adrianne Mera MD [facility] [place] [address] Yael Merlos, KARLA [facility] [place] [address] 10/17/2023 1:30 PM EDT Infusion Hematology Oncology at [address] [phone] 11/14/2023 9:30 AM EDT Office Visit Hematology/Oncology at [address] [phone] Adrianne Mera MD [facility] [place] [address] Yael Merlos, [facility] [place] [address] 11/14/2023 10:00 AM EDT Infusion Hematology Oncology at [address] [phone] Scheduled Referrals Name Type Priority [...] 1950 ? Height: 169 cm ? Account: [id number] Age: 72 yrs ? Weight: 93 kg Gender: Male ?BSA: 2.0 m2 Ordering Physician: ADRIANNE MERA Referring Physician: ADRIANNE MERA Performed By: SHAHANA Fernando Reason For Study: Lymphoma Exam Location: [facility]. Interpretation Summary LV systolic function appears to be low-normal. LV ejection fraction appears to be 52%. Global longitudinal strain is measured at -16.6 %. (GE). There are no segmental wall motion abnormalities. Normal right ventricle. No significant valvular abnormalities. Trivial pericardial effusion. On direct comparison to prior echo dated 10/12/2022, the LV function has slightly improved. Procedure Limited - [id number]. Left ventricular strain. Satisfactory quality. There is [...] Location: : 1950 Height: 169 cm Account: [id number] Age: 72 yrs Weight: 93 kg Gender: Male BSA: 2.0 m2 Ordering Physician: ADRIANNE MERA Referring Physician: ADRIANNE MERA Performed By: SHAHANA Fernando Reason For Study: Lymphoma Exam Location: [facility]. Interpretation Summary LV systolic function appears to be low-normal. LV ejection fractionappears to be 52%. Global longitudinal strain is measured at -16.6 %. (GE). There areno segmental wall motion abnormalities. Normal right ventricle. No significant valvular abnormalities. Trivial pericardial effusion. On direct comparison to prior echo dated 10/12/2022, the LV function hasslightly improved. Procedure Limited - 62303. Left ventricular strain. Satisfactory quality. There isnormal [...] regions documented in this encounter Care Teams Software Engineering Specialist Relationship Specialty Start Date End Date Frederick Meade MD [address] [place] [address] PCP - General Family Medicine 11/29/17 documented as of this encounter
--- OUTSIDE RECORDS SUMMARY | 2023-10-11 03:41 | XMS_ITS | Encounter Summary ---
Author Organization [place] [address] Care Team Providers Care Fur Remodeler Name Role Phone Frederick Meade MD Primary Care Provider [phone] [phone] Encounter Details Date Type Department Care Team (Late st Contact Info) Description 10/11/2022 External [place] [phone] Provider, Scanning Social History Tobacco Use Types [...] AM EDT Infusion Hematology Oncology at [address] [address] 10/17/2023 1:00 PM EDT TH Visit (TeleHealth) Hematology/Oncology at [address] [address] Adrianne Ramon MD [facility] [place] [address] Yael Merlos APRN [facility] HEMATOLOGY [place] [address] 10/17/2023 1:30 PM EDT Infusion Hematology Oncology at [address] [address] 11/14/2023 9:30 AM EDT Office Visit Hematology/Oncology at [address] [address] Adrianne Ramon MD [facility] HEMATOLOGY [place] [address] Yael Merlos APRN [facility] HEMATOLOGY [place] [address] 11/14/2023 10:00 AM EDT Infusion Hematology Oncology at [address] [phone] documented as of this encounter Procedures Procedure Name Priority Date/Time Associated Diagnosis Comments SURGICAL PATHOLOGY SCAN Routine 10/11/2022 documented in this encounter Results * Scan Doc: Surgical Pathology (10/11/2022) Historical Provider MD LOPEZ MGR SCAN EX T ORDR/RSLT documented in this encounter Visit Diagnoses Not on filedocumented in this encounter Care Teams Fur Remodeler Relationship Specialty Start Date End Date Frederick Meade MD [address] [place] [address] [address] [place] [address] PCP - General Family Medicine 11/29/17 documented as of this encounter
--- OUTSIDE RECORDS SUMMARY | 2023-10-11 03:41 | XMS_ITS | Encounter Summary ---
Author Organization [facility] [place] [address] Care Team Providers Care Online Marketing Analyst Name Role Phone Frederick Meade MD Primary Care Provider [phone] [phone] Reason for Visit * Reason Onset Date Comments Follow-up 11/01/2022 Encounter Details Date Type Department Care Team (Late st Contact Info) Description 11/01/2022 Telephone Hematology/Oncology at [address] [phone] Polly Orellana RN Follow-up Social [...] Dr. Ramon needs them to go to [facility] next Sunday to see Dr. Barbosa. They feel if things continue to get better therewill be no issue, they will let us know if things change. documented in this encounter Plan of Treatment Upcoming Encounters Date Type Department Care Team (Late st Contact Info) Description 10/11/2023 8:30 AM EDT Infusion Hematology Oncology at [address] [address] 10/17/2023 1:00 PM EDT TH Visit (TeleHealth) Hematology/Oncology at [address] [address] Adrianne Ramon MD [facility] HEMATOLOGY [place] [address] Yael Merlos, STATISTICS TEACHER [facility] HEMATOLOGY [place] [address] 10/17/2023 1:30 PM EDT Infusion Hematology Oncology at [address] [phone] 11/14/2023 9:30 AM EDT Office Visit Hematology/Oncology at [address] [phone] Adrianne Ramon MD [facility] DR [place] [address] Yael Merlos APRN [facility] [place] [address] 11/14/2023 10:00 AM EDT Infusion Hematology Oncology at [address] [phone] documented as of this encounter Visit Diagnoses Not on filedocumented in this encounter Care Teams Online Marketing Analyst Relationship Specialty Start Date End Date Frederick Meade MD [address] [place], [place] [address] PCP - General Family Medicine 11/29/17 documented as of this encounter
--- OUTSIDE RECORDS SUMMARY | 2023-10-11 03:41 | XMS_ITS | Encounter Summary ---
Author Organization [facility] [place] [address] Care Team Providers Care Test Consultant Name Role Phone Frederick Meade MD Primary Care Provider +1 [phone] Encounter Details Date Type Department Care Team [...] AM EDT Infusion Hematology Oncology at [address] [address] 10/17/2023 1:00 PM EDT TH Visit (TeleHealth) Hematology/Oncology at [address] [address] Adrianne Ramon MD [facility] [place] [address] Yael Merlos APRN [facility] [place] [address] 10/17/2023 1:30 PM EDT Infusion Hematology Oncology at [address] [address] 11/14/2023 9:30 AM EDT Office Visit Hematology/Oncology at [address] [address] Adrianne Ramon MD [facility] [place] [address] Yael Merlos APRN [facility] [place] [address] 11/14/2023 10:00 AM EDT Infusion Hematology Oncology at [address] [address] documented as of this encounter Visit Diagnoses Not on filedocumented in this encounter Care Teams Test Consultant Relationship Specialty Start Date End Date Frederick Meade MD [address] [place] [address] PCP - General Family Medicine 11/29/17 documented as of this encounter
--- OUTSIDE RECORDS SUMMARY | 2023-10-11 03:41 | XMS_ITS | Encounter Summary ---
Author Organization [place] [address] Care Team Providers Care Hospice Music Therapy Name Role Phone Frederick Meade MD Primary Care Provider +1 [phone] Reason for Visit * Reason Onset Date Comments Follow-up 10/26/2022 Encounter Details Date Type Department Care Team (Late st Contact Info) Description 10/26/2022 Telephone Hematology/Oncology at [address] [address] Tania Rosales, RN Follow-up Social [...] than yesterday. He is still admitted at [facility] and relays that the care plan is to keep him admitted until his WBC go up. Per the [facility] progress note, the goal is for an ANC greater than 500 and he is stable, labs this morning his ANC was 90. His next FUV here is 11/08. Cheo was thankful for the call. documented in this encounter Plan of Treatment Upcoming Encounters Date Type Department Care Team (Late st Contact Info) Description 10/11/2023 8:30 AM EDT Infusion Hematology Oncology at [address] [address] 10/17/2023 1:00 PM EDT TH Visit (TeleHealth) Hematology/Oncology at [address] [address] Adrianne Ramon MD [facility] DR HEMATOLOGY [place] [address] Yael Merlos, HANDICAPPED TEACHER [facility] HEMATOLOGY [place] [address] 10/17/2023 1:30 PM EDT Infusion Hematology Oncology at [address] [phone] 11/14/2023 9:30 AM EDT Office Visit Hematology/Oncology at [address] [phone] Adrianne Ramon MD [facility] DR HEMATOLOGY [place] [address] Yael Merlos APRN [facility] HEMATOLOGY [place] [address] 11/14/2023 10:00 AM EDT Infusion Hematology Oncology at [address] [phone] documented as of this encounter Visit Diagnoses Not on filedocumented in this encounter Care Teams Hospice Music Therapy Relationship Specialty Start Date End Date Frederick Meade MD [address] [place] [address] PCP - General Family Medicine 11/29/17 documented as of this encounter
--- OUTSIDE RECORDS SUMMARY | 2023-10-11 03:41 | XMS_ITS | Encounter Summary ---
Author Organization [facility] [place] [address] Care Team Providers Care Emergency Vehicle Driver Name Role Phone Frederick Meade MD Primary Care Provider +1 [phone] Reason for Visit * Treatment/Therapy Plan Authorization [...] (CYTOXAN) Adrianne Ramon MD [facility] HEMATOLOGY [place] [address] [facility] [address] [place] [address] Referral ID Status Reason Start Date Expiration Date Visits Re quested Visits Authorized [id number] Closed 10/11/2022 10/11/2023 1 100 Encounter Details Date Type Department Care Team (Latest Contact Info) Description 10/17/2022 11:16 AM EDT - 10/17/2022 11:59 PM EDT Hospital Encounter [place]ology [place] [address] Diffuse large B-cell lymphoma of [...] flushed, left accessed for tomorrow infusion at [facility] documented in this encounter Plan of Treatment Upcoming Encounters Date Type Department Care Team (Late st Contact Info) Description 10/11/2023 8:30 AM EDT Infusion Hematology Oncology at [address] [address] 10/17/2023 1:00 PM EDT TH Visit (TeleHealth) Hematology/Oncology at [address] [address] Adrianne Ramon MD [facility] HEMATOLOGY [place] [address] Yael Merlos APRN [facility] HEMATOLOGY [place] [address] 10/17/2023 1:30 PM EDT Infusion Hematology Oncology at [address] [address] 11/14/2023 9:30 AM EDT Office Visit Hematology/Oncology at [address] [address] Adrianne Ramon MD [facility] HEMATOLOGY [place] [address] Yael Merlos, WELDER MAN[employer] [facility] HEMATOLOGY [place] [address] 11/14/2023 10:00 AM EDT Infusion Hematology Oncology at [address] [address] Scheduled Orders Name Type Priority Associated Diagnoses [...] of multiple regions HIV SCREEN, 4TH GENERATION ([facility]CGP/APD/NLH) STAT 10/17/2022 11:45 AM EDT Diffuse large [...] Peripheral Blood (10/17/2022 11:45 AM EDT) Pathologist [facility] [place] Plat estimate Normal [facility] RBC Morphology Abnormal [facility] Ovalocytes 1-5 /HPF [facility] Tear Cell 1-5 /HPF [facility] Blood 10/17/2022 11:4 5 AM EDT 10/17/2022 12:08 PM EDT Narrative Resulting Agency Comment Spec In Lab Adrianne Ramon MD HEMATOLOGY ORDER DUONG [facility] [place] [address] * (ABNORMAL) Differential, Automated (10/17/2022 11:45 AM EDT) Pathologist [facility] Neutrophil % 68.0 % [facility] Neutrophil Absolute 7.17(H) 1.70 - 6.10 x10(3)/mc L [facility] Lymph % 13.6 % [facility] Lymphocytes Abs 1.4 0.9 - 3.2 x10(3)/mc L [facility] Monocyte % 14.8 % [facility] Monocyte Abs 1.6(H) 0.3 - 0.9 x10(3)/mc L [facility] Eos % 2.8 % [facility] Eosinophils Abs 0.3 0.0 - 0.4 x10(3)/ L [facility] Basophil % 0.3 % [facility] Baso Absolute 0.0 0.0 - 0.1 x10(3)/mc L [facility] Immature Gran % 0.50 % [facility] Comment: Immature granulocytes(IG's)percentage and absolute count will include metamyelocytes, myelocytes, and promyelocytes. Blood smears from CBCs yielding IG's will be scanned manually for concordance. If this scan disagrees with the automated IG or if promyelocytes are noted, a manual differential will be performed. Immature Gran Absolute 0.05(H) 0.00 - 0.04 x10(3)/ L [facility] Blood 10/17/2022 11:4 5 AM EDT 10/17/2022 12:08 PM EDT Narrative Resulting Agency Comment Spec In Lab Adrianne Ramon MD HEMATOLOGY ORDER DUONG [facility] [place] [address] * (ABNORMAL) Hemogram (10/17/2022 11:45 AM EDT) White Blood Cell 10.6(H) 4.0 - 9.5 x10(3)/ L [facility] Red Blood Cell 3.68(L) 4.58 - 5.54 x10(6)/ L [facility] Hemoglobin 11.3(L) 13.7 - 16.5 g/dL [facility] Hematocrit 33.8(L) 40.5 - 48.5 % [facility] Mean Cell Volume 91.8 82.9 - 93.1 fL [facility] Mean Cell Hemoglobin 30.7 27.5 - 32.1 pg [facility] Mean Cell Hemoglobin Concentration 33.4 32.0 - 35.7 g/dL [facility] Platelet 261 145 - 357 x10(3)/ L [facility] RDW Standard Deviation 49.5(H) 36.0 - 45.0 fL [facility] RDW coefficient of variation 14.6(H) 11.4 - 13.8 % [facility] Mean Platelet Volume 9.4 7.6 - 12.9 fL [facility] NRBC% auto 0.0 % [facility] NRBC Absolute 0.000 0.000 - 0.000 x10(3)/mc L [facility] Blood 10/17/2022 11:4 5 AM EDT 10/17/2022 12:08 PM EDT Narrative Resulting Agency Comment Spec In Lab Adrianne Ramon MD HEMATOLOGY ORDER DUONG Performing Organization Address City/[facility]/ZIP Co de Phone Number [facility] [place] [address] * Hepatitis C Antibody (10/17/2022 11:45 AM EDT) Hepatitis C Antibody Negative Negative [facility] Blood 10/17/2022 11:4 5 AM EDT 10/17/2022 12:08 PM EDT Narrative Resulting Agency Comment Spec In Lab Adrianne Ramon MD CHEMISTRY ORDERA BLES Performing Organization Address [facility] Co de Phone Number [facility] [place] [address] * HIV Screen, 4th Generation ([facility]/CGP/APD/NLH) (10/17/2022 11:45 AM EDT) HIV Ab/Ag Screen Negative Negative [facility] Comment: This 4th Generation HIV [...] HIV Comment Low Risk of HIV Infection [facility] Blood 10/17/2022 11:4 5 AM EDT 10/17/2022 12:08 PM EDT Narrative Resulting Agency Comment Spec In Lab Adrianne Ramon MD CHEMISTRY ORDERA BLES Performing Organization Address City/[facility]/ZIP Co de Phone Number [facility] [place] [address] * Hepatitis B Surface Antibody (10/17/2022 11:45 AM EDT) Hepatitis B Surface Antibody, Quantitative <3.5 IU/L [facility] Comment: HepB Surface Ab Quant: Unvaccinated: < 8.5 IU/L Vaccinated: >= 11.5 IU/L Hepatitis B Surface Antibody Negative [facility] Comment: Patient is presumed to be not vaccinated or immune to HBV infection. Expected Results: Vaccinated: Positive Unvaccinated: Negative Blood 10/17/2022 11:4 5 AM EDT 10/17/2022 12:08 PM EDT Narrative Resulting Agency Comment Spec In Lab Adrianne Ramon MD CHEMISTRY ORDERA BLES Performing Organization Address [facility] Co de Phone Number [facility] [place] [address] * Hepatitis B Surface Antigen (10/17/2022 11:45 AM EDT) Hepatitis B Surface Antigen Negative Negative [facility] Blood 10/17/2022 11:4 5 AM EDT 10/17/2022 12:08 PM EDT Narrative Resulting Agency Comment Spec In Lab Adrianne Ramon MD CHEMISTRY ORDERA BLES Performing Organization Address City/[facility]/ZIP Co de Phone Number [facility] [place] [address] * Hepatitis B Core Antibody, Total (10/17/2022 11:45 AM EDT) Hepatitis B Core Antibody Negative Negative [facility] Blood 10/17/2022 11:4 5 AM EDT 10/17/2022 12:08 PM EDT Narrative Resulting Agency Comment Spec In Lab Adrianne Ramon MD CHEMISTRY ORDERA BLES [facility] [place] [address] * Uric acid (10/17/2022 11:45 AM EDT) Uric Acid 5.3 3.5 - 8.5 mg/dL [facility] Blood 10/17/2022 11:4 5 AM EDT 10/17/2022 12:08 PM EDT Narrative Resulting Agency Comment Spec In Lab Adrianne Ramon MD CHEMISTRY ORDERA BLES Performing Organization Address City/[facility] Co de Phone Number [facility] [place] [address] * Phosphorus (10/17/2022 11:45 AM EDT) Phosphorus 3.2 2.5 - 4.5 mg/dL [facility] Blood 10/17/2022 11:4 5 AM EDT 10/17/2022 12:08 PM EDT Narrative Resulting Agency Comment Spec In Lab Adrianne Ramon MD CHEMISTRY ORDERA BLES Performing Organization Address City/[facility]/ZIP Co de Phone Number [facility] [place] [address] * Magnesium (10/17/2022 11:45 AM EDT) Magnesium 0.78 0.69 - 1.07 mmol/L [facility] Blood 10/17/2022 11:4 5 AM EDT 10/17/2022 12:08 PM EDT Narrative Resulting Agency Comment Spec In Lab Adrianne Ramon MD CHEMISTRY ORDERA BLES Performing Organization Address City/[facility] Co de Phone Number [facility] [place] [address] * (ABNORMAL) Lactate Dehydrogenase (10/17/2022 11:45 AM EDT) Lactate Dehydrogenase 251(H) 110 - 220 unit/L [facility] Blood 10/17/2022 11:4 5 AM EDT 10/17/2022 12:08 PM EDT Narrative Resulting Agency Comment Spec In Lab Adrianne Ramon MD CHEMISTRY ORDERA ANA ROSA [facility] [place] [address] * Comprehensive metabolic panel (non-fasting) (10/17/2022 11:45 AM EDT) Glucose 110 65 - 199 mg/dL [facility] Comment:Diabetes: >=200 mg/d L plus symptoms Blood Urea Nitrogen 17 10 - 20 mg/dL [facility] Creatinine 1.07 0.80 - 1.50 mg/dL [facility] Sodium 139 135 - 145 mmol/L [facility] Potassium 3.6 3.5 - 5.0 mmol/L [facility] Comment: Please note: ??Patients with WBC >100,000 may have falsely elevated Potassium levels. ??For accurate Potassium quantification in these patients send serum separator tube (gold top) for subsequent determinations. ??Contact the Clinical Chemistry Laboratory if there are any questions. Chloride 105 98 - 107 mmol/L [facility] Carbon Dioxide 23 22 - 31 mmol/L [facility] Anion Gap 11 5 - 15 mmol/L [facility] Calcium 8.9 8.5 - 10.5 mg/dL [facility] Protein, Total 6.2 6.1 - 8.0 g/dL [facility] Albumin 3.6 3.2 - 5.2 g/dL [facility] Aspartate Aminotransferase 14 0 - 39 unit/L [facility] Alanine Aminotransferase 27 0 - 55 unit/L [facility] Alkaline Phosphatase 103 40 - 130 unit/L [facility] Bilirubin, Total 0.4 0.2 - 1.3 mg/dL [facility] Est Glomerular Filtration Rate 73 >=60 mL/min/1. 73 m?? [facility] Comment: This patient's estimated GFR [...] Lab Adrianne Ramon MD CHEMISTRY ORDERA BLES [facility] [place] [address] documented in this encounter Visit Diagnoses Diagnosis [...] Job Aid: Adult Flushing & Catheter Care (7413) job aid for additional information regarding guidelines [...] Job Aid: Adult Flushing & Catheter Care (8169) job aid for additional information regarding guidelines and administration., Routine Given 10/17/2022 12:11 PM EDT 20 mLs documented in this encounter Care Teams Emergency Vehicle Driver Relationship Specialty Start Date End Date Frederick Meade MD [address] [place] [address] PCP - General Family Medicine 11/29/17 documented as of this encounter
--- OUTSIDE RECORDS SUMMARY | 2023-10-11 03:41 | XMS_ITS | Encounter Summary ---
Author Organization [facility] [place] [address] Care Team Providers Care Wire Charger Name Role Phone Frederick Meade MD Primary Care Provider [phone] [phone] Reason for Referral * Diagnostic Test (Routine) - Closed Specialty Diagnoses / Procedures Referred By Contac t Referred To Contact Cardiology Diagnoses Diffuse large B-cell lymphoma of lymph nodes of multiple regions Procedures Echocardiogram Transthoracic Adrianne Mera MD [facility] [address] [place] [address] [facility] [place] [address] Referral ID Status Reason Start Date Expiration Date V isits Requested Visits Authorized [id number] Closed Specialty Service Requested 10/11/2022 10/11/2023 1 1 Encounter Details Date Type Department Care Team (Late st Contact Info) Description 10/11/2022 Orders Only [place]ematology [place] [address] Adrianne Mera MD [facility] [address] [place] [address] Diffuse large B-cell lymphoma of lymph nodes [...] AM EDT Infusion Hematology Oncology at [address] [address] 10/17/2023 1:00 PM EDT TH Visit (TeleHealth) Hematology/Oncology at [address] [address] Adrianne Mera MD [facility] [address] [place] [address] Yael Merlos, KARLA [facility] [place] [address] 10/17/2023 1:30 PM EDT Infusion Hematology Oncology at [address] [phone] 11/14/2023 9:30 AM EDT Office Visit Hematology/Oncology at [address] [address] dArianne Mera MD [facility] [place] [address] Yael Merlos REHAB PHYSICIAN [facility] [place] [address] 11/14/2023 10:00 AM EDT Infusion Hematology Oncology at [address] [phone] documented as of this encounter Results * ECHO COMPLETE (10/12/2022 10:00 AM EDT) Pathologist [facility] EF [facility] [employer] Anatomical Region Laterality Modality Cardiac Other 10/12/2022 9:33 AM EDT Narrative 10/12/2022 10:15 AM EDT ? Echocardiogram Report Name: CHEO MORFIN ? Study Date: 10/12/2022 09:33 AMBP: 164/86 mmHg ? Patient Location: [facility] : 1950 ? Height: 168 cm ? Account: [id number] Age: 72 yrs ? Weight: 97 kg Gender: Male ?BSA: 2.1 m2 Ordering Physician: ADRIANNE MERA Referring Physician: ADRIANNE MERA Performed By: Teresa Villafuerte RDCS Reason For Study: Diffuse large B-cell lymphoma of lymph nodes of multiple regions Exam Location: [facility]. Interpretation Summary Left ventricle is of normal [...] findings. No comparison study is available. Procedure Complete-[id number]. Satisfactory quality. Left Ventricle Left ventricle is [...] Date: 309:33 AMBP: 164/86 mmHg Patient Location: [facility] : 1950 Height: 168 cm Account: [id number] Age: 72 yrs Weight: 97 kg Gender: Male BSA: 2.1 m2 Ordering Physician: ADRIANNE MERA Referring Physician: ADRIANNE MERA Performed By: Teresa Villafuerte RDCS Reason For Study: Diffuse large B-cell lymphoma of lymph nodes ofmultiple regions Exam Location: [facility]. Interpretation Summary Left ventricle is of normal [...] findings. No comparison study is available. Procedure Complete-[id number]. Satisfactory quality. Left Ventricle Left ventricle is [...] mmHg . The estimated right atrial pressure [id number]. There is Grade I LV diastolic dysfunction [...] regions documented in this encounter Care Teams Wire Charger Relationship Specialty Start Date End Date Frederick Meade MD [address] [place] [address] PCP - General Family Medicine 11/29/17 documented as of this encounter
--- OUTSIDE RECORDS SUMMARY | 2023-10-11 03:41 | XMS_ITS | Encounter Summary ---
[place] [address] Care Team Providers Care Core Worker Name Role Phone Frederick Meade MD Primary Care Provider [phone] [phone] Encounter Details Date Type Department Care Team (Late st Contact Info) Description 10/25/2022 Telephone Hematology [place] [phone] Davey Magdaleno MD [facility] HEMATOLOGY/[place] [address] Social History Tobacco Use Types Packs/Day Years [...] a call from Dr. Mcbride (Hospitalist) at [facility] this morning in regards to Cheo. 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 He presented to [facility] with an oral temp of 38.6. [...] saw Dr. Ramon, on 10/12 and started [facility] in [facility] on 10/18 with neupogen. I am [...] AM EDT Infusion Hematology Oncology at [address] [address] 10/17/2023 1:00 PM EDT TH Visit (TeleHealth) Hematology/Oncology at [address] [address] Adrianne Ramon MD [facility] HEMATOLOGY [place] [address] Yael Merlos, SHIPBOARD INTELLIGENCE ANALYST [facility] HEMATOLOGY [place] [address] 10/17/2023 1:30 PM EDT Infusion Hematology Oncology at [address] [address] 11/14/2023 9:30 AM EDT Office Visit Hematology/Oncology at [address] [phone] Adrianne Ramon MD [facility] HEMATOLOGY [place] [address] Yael Merlos APRN [facility] HEMATOLOGY [place] [address] 11/14/2023 10:00 AM EDT Infusion Hematology Oncology at [address] [address] documented as of this encounter Visit Diagnoses Not on filedocumented in this encounter Care Teams Core Worker Relationship Specialty Start Date End Date Frederick Meade MD [address] [place] [address] [address] [place], [place] [address] PCP - General Family Medicine 11/29/17 documented as of this encounter
--- OUTSIDE RECORDS SUMMARY | 2023-10-11 03:41 | XMS_ITS | Encounter Summary ---
Author Organization [facility] [place] [address] Care Team Providers Care Building Code Administrator Name Role Phone Frederick Meade MD Primary Care Provider [phone] Encounter Details Date Type Department Care Team [...] AM EDT Infusion Hematology Oncology at [address] [address] 10/17/2023 1:00 PM EDT TH Visit (TeleHealth) Hematology/Oncology at [address] [address] Adrianne Ramon MD [facility] HEMATOLOGY [place] [address] Yael Merlos APRN [facility] HEMATOLOGY [place] [address] 10/17/2023 1:30 PM EDT Infusion Hematology Oncology at [address] [address] 11/14/2023 9:30 AM EDT Office Visit Hematology/Oncology at [address] [address] Adrianne Ramon MD [facility] HEMATOLOGY [place] [address] Yael Merlos APRN [facility] HEMATOLOGY [place] [address] 11/14/2023 10:00 AM EDT Infusion Hematology Oncology at [address] [address] documented as of this encounter Visit Diagnoses Not on filedocumented in this encounter Care Teams Building Code Administrator Relationship Specialty Start Date End Date Frederick Meade MD [address] [place] [address] PCP - General Family Medicine 11/29/17 documented as of this encounter
--- OUTSIDE RECORDS SUMMARY | 2023-10-11 03:41 | XMS_ITS | Encounter Summary ---
Author Organization [facility] [place] [address] Care Team Providers Care Record Filing Clerk Name Role Phone Frederick Meade MD Primary Care Provider [phone] Encounter Details Date Type Department Care Team [...] AM EDT Infusion Hematology Oncology at [address] [address] 10/17/2023 1:00 PM EDT TH Visit (TeleHealth) Hematology/Oncology at [address] [address] Adrianne Ramon MD [facility] [place] [address] Yael Merlos APRN [facility] [place] [address] 10/17/2023 1:30 PM EDT Infusion Hematology Oncology at [address] [address] 11/14/2023 9:30 AM EDT Office Visit Hematology/Oncology at [address] [address] Adrianne Ramon MD [facility] [place] [address] Yael Merlos APRN [facility] [place] [address] 11/14/2023 10:00 AM EDT Infusion Hematology Oncology at [address] [address] documented as of this encounter Visit Diagnoses Not on filedocumented in this encounter Care Teams Record Filing Clerk Relationship Specialty Start Date End Date Frederick Meade MD [address] [place] [address] PCP - General Family Medicine 11/29/17 documented as of this encounter
--- OUTSIDE RECORDS SUMMARY | 2023-10-11 03:41 | XMS_ITS | Encounter Summary ---
Author Organization [facility] [address] Care Team Providers Care Testing Specialist Name Role Phone Frederick Meade MD Primary Care Provider [phone] Reason for Visit * Reason Comments Chemotherapy Teaching Encounter Details Date Type Department Care Team (Late st Contact Info) Description 10/18/2022 8:00 AM EDT Office Visit Hematology/Oncology at [address] [address] Adrianne Ramon MD [facility] DR [place]AT[place] [address] Yael Merlos, COSTUME DRAPER [facility] DR [place]AT[place] [address] Diffuse large B-cell lymphoma of lymph nodes [...] this encounter Progress Notes * Yael Merlos, COSTUME DRAPER - 10/18/2022 8:00 AM EDT PATIENT ID: [...] of infection, cataracts and osteoporosis. Medications: please medicinal plant picker the following prescriptions before you start [...] further questions or concerns. Yael Merlos, MSN, COSTUME DRAPER Nurse Practitioner Section of Hematology [facility] Cc: Frederick Meade MD documented in this encounter Plan of Treatment Upcoming Encounters Date Type Department Care Team (Late st Contact Info) Description 10/11/2023 8:30 AM EDT Infusion Hematology Oncology at [address] [address] 10/17/2023 1:00 PM EDT TH Visit (TeleHealth) Hematology/Oncology at [address] [address] Adrianne Ramon MD [facility] H[place]AT[place] [address] Yael Merlos APRN [facility] [place] [address] 10/17/2023 1:30 PM EDT Infusion Hematology Oncology at [address] [address] 11/14/2023 9:30 AM EDT Office Visit Hematology/Oncology at [address] [address] Adrianne Ramon MD [facility] HEMATOLOGY [place] [address] Yael Merlos APRN [facility] [place] [address] 11/14/2023 10:00 AM EDT Infusion Hematology Oncology at [address] [phone] documented as of this encounter Visit Diagnoses Diagnosis Diffuse large B-cell lymphoma of lymph nodes of multiple regions documented in this encounter Care Teams Testing Specialist Relationship Specialty Start Date End Date Frederick Meade MD [address] [place] [address] [address] [place] [address] PCP - General Family Medicine 11/29/17 documented as of this encounter
--- OUTSIDE RECORDS SUMMARY | 2023-10-11 03:41 | XMS_ITS | Encounter Summary ---
[place] [address] Care Team Providers Care Client Leader Name Role Phone Frederick Meade MD Primary Care Provider [phone] Reason for Referral * Diagnostic Test (Routine) - Closed Specialty Diagnoses / Procedures Referred By Contac t Referred To Contact Cardiology Diagnoses Diffuse large B-cell lymphoma of lymph nodes of multiple regions Procedures Echocardiogram Transthoracic Adrianne Mera MD [facility] [address] [place] [address] [facility] [place] [address] Referral ID Status Reason Start Date Expiration Date V isits Requested Visits Authorized [id number] Closed Specialty Service Requested 10/12/2022 10/12/2023 1 1 Reason for Visit * Diagnostic Test (Routine) - Closed Specialty Diagnoses / Procedures Referred By Contac t Referred To Contact Cardiology Diagnoses Diffuse large B-cell lymphoma of lymph nodes of multiple regions Procedures Echocardiogram Transthoracic Adrianne Mera MD [facility] [address] [place] [address] [facility] [place] [address] Referral ID Status Reason Start Date Expiration Date V isits Requested Visits Authorized [id number] Closed Specialty Service Requested 10/12/2022 10/12/2023 1 1 Encounter Details Date Type Department Care Team (Late st Contact Info) Description 11/06/2022 10:45 AM EDT - 11/06/2022 11:59 PM EDT Hospital Encounter Non-Invasive Cardiology Lab [facility] [place] [address] Adrianne Mera MD [facility] [address] [place] [address] Diffuse large B-cell lymphoma of lymph nodes [...] AM EDT Infusion Hematology Oncology at [address] [address] 10/17/2023 1:00 PM EDT TH Visit (TeleHealth) Hematology/Oncology at [address] [address] Adrianne Mera MD [facility] [place] [address] Yael Merlos, [facility] HEMATOLOGY [place] [address] 10/17/2023 1:30 PM EDT Infusion Hematology Oncology at [address] [address] 11/14/2023 9:30 AM EDT Office Visit Hematology/Oncology at [address] [address] Adrianne Mera MD [facility] [place] [address] Yael Merlos, [facility] [place] [address] 11/14/2023 10:00 AM EDT Infusion Hematology Oncology at [address] [phone] documented as of this encounter Procedures Procedure [...] 11:11 AMBP: 154/72 mmHg ? [facility] 1950 ? Height: 169 cm ? Account: [id number] Age: 72 yrs ? Weight: 93 kg Gender: Male ?BSA: 2.0 m2 Ordering Physician: ADRIANNE MERA Referring Physician: ADRIANNE MERA Performed By: SHAHANA Fernando Reason For Study: Lymphoma Exam Location: [facility]. Interpretation Summary LV systolic function appears to be low-normal. LV ejection fraction appears to be 52%. Global longitudinal strain is measured at -16.6 %. (GE). There are no segmental wall motion abnormalities. Normal right ventricle. No significant valvular abnormalities. Trivial pericardial effusion. On direct comparison to prior echo dated 10/12/2022, the LV function has slightly improved. Procedure Limited - 26335. Left ventricular strain. Satisfactory quality. There is [...] Valderrama MD - 11/06/2022 Echocardiogram Report Name: JARETHWOODCHEO Study Date: 1:11 AMBP: 154/72 mmHg Patient Location: : 1950 Height: 169 cm Account: [id number] Age: 72 yrs Weight: 93 kg Gender: Male BSA: 2.0 m2 Ordering Physician: ADRIANNE MERA Referring Physician: ADRIANNE MERA Performed By: SHAHANA Fernando Reason For Study: Lymphoma Exam Location: [facility]. Interpretation Summary LV systolic function appears to be low-normal. LV ejection fractionappears to be 52%. Global longitudinal strain is measured at -16.6 %. (GE). There areno segmental wall motion abnormalities. Normal right ventricle. No significant valvular abnormalities. Trivial pericardial effusion. On direct comparison to prior echo dated 10/12/2022, the LV function hasslightly improved. Procedure Limited - 17877. Left ventricular strain. Satisfactory quality. There isnormal [...] regions documented in this encounter Care Teams Client Leader Relationship Specialty Start Date End Date Frederick Meade MD [address] [place] [address] [address] [place] [address] PCP - General Family Medicine 11/29/17 documented as of this encounter
--- OUTSIDE RECORDS SUMMARY | 2023-10-11 03:41 | XMS_ITS | Encounter Summary ---
[place] [address] Care Team Providers Care Regulatory And Compliance Technician Name Role Phone Frederick Meade MD Primary Care Provider [phone] Encounter Details Date Type Department Care Team (Late st Contact Info) Description 10/24/2022 Telephone Hematology [place] [phone] Castro Jimenez MD [facility] [place]ATOLOG[place] [address] Social History Tobacco Use Types Packs/Day Years [...] Dr. Ramon, . office Castro Jimenez MD [facility] Hematology Oncology Fellow Page [phone] documented in this encounter Plan of Treatment Upcoming Encounters Date Type Department Care Team (Late st Contact Info) Description 10/11/2023 8:30 AM EDT Infusion Hematology Oncology at [address] [phone] 10/17/2023 1:00 PM EDT TH Visit (TeleHealth) Hematology/Oncology at [address] [phone] Adrianne Ramon MD [facility] HEMATOLOGY [place] [address] Yael Merlos APRN [facility] [place] [address] 10/17/2023 1:30 PM EDT Infusion Hematology Oncology at [address] [phone] 11/14/2023 9:30 AM EDT Office Visit Hematology/Oncology at [address] [phone] Adrianne Ramon MD [facility] HEMATOLOGY [place] [address] Yael Merlos, DRY HOUSE WHEELER [facility] [place] [address] 11/14/2023 10:00 AM EDT Infusion Hematology Oncology at [address] [phone] documented as of this encounter Visit Diagnoses Not on filedocumented in this encounter Care Teams Regulatory And Compliance Technician Relationship Specialty Start Date End Date Frederick Meade MD [address] [place] [address] [address] [place], [place] [address] PCP - General Family Medicine 11/29/17 documented as of this encounter
--- OUTSIDE RECORDS SUMMARY | 2023-10-11 03:42 | XMS_ITS | Encounter Summary ---
[place] [address] Care Team Providers Care Metrology Engineer Name Role Phone Bobby Headley MD Primary Care Provider [phone] Encounter Details Date Type Department Care Team (Late st Contact Info) Description 12/31/2014 8:00 AM EST Office Visit Radiation Oncology at [address] [phone] Nitin Stauffer MD [address] [place] [address] DR RADIATION ONCOLOGY [place], [place] [id number] Cancer of prostate with intermediate recurrence risk [...] Uncontrollable bleeding A Radiation Oncology doctor is medical reception specialist after our normal hours and on weekends. To call for urgent medical issues from radiation treatments that can not wait until normal business hours, please call and have the air tool operator page the Radiation Oncologist medical reception specialist. Nitin Ramirez MD documented in this encounter Progress Notes * Nitin Stauffer MD - 12/31/2014 8:07 AM EST [facility] On Treatment Visit Patient ID: Cheo Freire [...] AM EDT Infusion Hematology Oncology at [address] [address] 10/17/2023 1:00 PM EDT TH Visit (TeleHealth) Hematology/Oncology at [address] [address] Adrianne Ramon MD [facility] HEMATOLOGY [place] [address] Yael Merlos APRN [facility] HEMATOLOGY [place] [address] 10/17/2023 1:30 PM EDT Infusion Hematology Oncology at [address] [phone] 11/14/2023 9:30 AM EDT Office Visit Hematology/Oncology at [address] [phone] Adrianne Ramon MD [facility] HEMATOLOGY [place] [address] Yael Merlos APRN [facility] HEMATOLOGY [place] [address] 11/14/2023 10:00 AM EDT Infusion Hematology Oncology at [address] [phone] documented as of this encounter Visit Diagnoses Diagnosis Cancer of prostate with intermediate recurrence risk (stage T2b-c or [place] 7 or PSA 10-20) Malignant neoplasm of prostate documented in this encounter Care Teams Metrology Engineer Relationship Specialty Start Date End Date Bobby Headley MD [address] [place] [address] PCP - General 01/29/14 11/28/17 documented as of this encounter
--- OUTSIDE RECORDS SUMMARY | 2023-10-11 03:42 | XMS_ITS | Encounter Summary ---
[place] [address] Care Team Providers Care Automobile Washer Steam Name Role Phone Bobby Headley MD Primary Care Provider [phone] Encounter Details Date Type Department Care Team (Latest Contact Info) Description 10/19/2014 9:57 AM EDT - 10/19/2014 11:59 PM EDT Hospital [place] [phone] Nitin Stauffer MD [address] [place] [address] DR RADIATION ONCOLOGY [place], [place] [id number] Cancer of prostate with intermediate recurrence risk [...] AM EDT Infusion Hematology Oncology at [address] [phone] 10/17/2023 1:00 PM EDT TH Visit (TeleHealth) Hematology/Oncology at [address] [address] Adrianne Ramon MD [facility] HEMATOLOGY [place] [address] Yael Merlos APRN [facility] HEMATOLOGY [place] [address] 10/17/2023 1:30 PM EDT Infusion Hematology Oncology at [address] [phone] 11/14/2023 9:30 AM EDT Office Visit Hematology/Oncology at [address] [address] Adrianne Ramon MD [facility] HEMATOLOGY [place] [address] Yael Merlos APRN [facility] [place] [address] 11/14/2023 10:00 AM EDT Infusion Hematology Oncology at [address] [phone] documented as of this encounter Procedures Procedure Name Priority Date/Time Associated Diagnosis Comments MRI PELVIS SOFT TISSUE (GI ADJUNCT PROFESSOR OF U.S. HISTORY) WWO CONTRAST Routine 10/19/2014 11:54 AM EDT [...] 2. Staging. ??Date of sextant biopsy: 09/24/2014 [place] score: 4+3 TECHNIQUE: Multiparametric MRI of the [...] 2. Staging. Date of sextant biopsy: 09/24/2014 [place] score: 4+3 TECHNIQUE: Multiparametric MRI of the [...] mLs documented in this encounter Care Teams Automobile Washer Steam Relationship Specialty Start Date End Date Bobby Headley MD [address] [place] [address] PCP - General 01/29/14 11/28/17 documented as of this encounter
--- OUTSIDE RECORDS SUMMARY | 2023-10-11 03:42 | XMS_ITS | Encounter Summary ---
[place] [address] Care Team Providers Care Solids Control Technician Name Role Phone Frederick Meade MD Primary Care Provider [phone] Encounter Details Date Type Department Care Team (Late Contact Info) Description 09/21/2022 10:05 PM EDT Ancillary Procedure [place] [phone] Thierry Ruiz MD [facility] [place] [address] Social History Tobacco Use Types Packs/Day Years [...] AM EDT Infusion Hematology Oncology at [address] [phone] 10/17/2023 1:00 PM EDT TH Visit (TeleHealth) Hematology/Oncology at [address] [phone] Adrianne Ramon MD [facility] DR HEMATOLOGY [place] [address] Yael Merlos APRN [facility] HEMATOLOGY [place] [address] 10/17/2023 1:30 PM EDT Infusion Hematology Oncology at [address] [phone] 11/14/2023 9:30 AM EDT Office Visit Hematology/Oncology at [address] [phone] Adrianne Ramon MD [facility] HEMATOLOGY [place] [address] Yael Merlos INTERVENTIONAL TECHNOLOGIST [facility] HEMATOLOGY [place] [address] 11/14/2023 10:00 AM EDT Infusion Hematology Oncology at [address] [phone] documented as of this encounter Procedures Procedure Name Priority Date/Time Associated Diagnosis Comments FILM LIBRARY STORAGE ONLY CT HEAD AND SPINE Routine 09/21/2022 10:02 PM EDT documented in this encounter Results * Film Library- Storage Only CT Head And Spine (09/21/2022 10:02 PM EDT) Narrative [facility] - 09/21/2022 10:02 PM EDT This exam is auto-finalizing. It's purpose is for storage only. Thierry Ruiz MD IMG FILM LIBRARY ORD ERABLES [place], [place] documented in this encounter Visit Diagnoses Not on filedocumented in this encounter Care Teams Solids Control Technician Relationship Specialty Start Date End Date Frederick Meade MD [address] [place] [address] [address] [place] [address] PCP - General Family Medicine 11/29/17 documented as of this encounter
--- OUTSIDE RECORDS SUMMARY | 2023-10-11 03:42 | XMS_ITS | Encounter Summary ---
[place] [address] Care Team Providers Care Hammer Heater Name Role Phone Frederick Meade MD Primary Care Provider [phone] Encounter Details Date Type Department Care Team (Late st Contact Info) Description 09/21/2022 Notes [place] [address] Karly Jacobs MD [facility] [place] [address] Social History Tobacco Use Types Packs/Day Years [...] by Transfer Center by Dr. Lucero at [facility] on 09/21/22 regarding Cheo Freire. Cheo Freire is a 72 y.o. male with PMH T2DM (diet controlled), HTN (lisinopril), prostate Ca (diagnosed 2014, no treatment), tobacco use history (quit 1984), prior chewing tobacco use history, very occasional alcohol who presented to [facility] with 1 wk throat swelling and facial [...] ENT, Dr. Ramírez, who is apparently in [place], but suggested this may represent angioedema vs [...] adenopathy with possible fluid collection in the onrma/nasophayrnx. Radiographic findings are suspicious for malignancy, including [...] for scope exam to evaluate further. Unfortunately, [facility] [place] availability to transfer patient at [...] Jacobs MD, PGY3 09/21/2022 11:33 PM Pager #[phone] documented in this encounter Plan of Treatment Upcoming Encounters Date Type Department Care Team (Late st Contact Info) Description 10/11/2023 8:30 AM EDT Infusion Hematology Oncology at [address] [phone] 10/17/2023 1:00 PM EDT TH Visit (TeleHealth) Hematology/Oncology at [address] [phone] Adrianne Ramon MD [facility] DR [place] [address] Yael Merlos, KARLA [facility] [place] [address] 10/17/2023 1:30 PM EDT Infusion Hematology Oncology at [address] [phone] 11/14/2023 9:30 AM EDT Office Visit Hematology/Oncology at [address] [phone] Adrianne Ramon MD [facility] DR [place] [address] Yael Merlos APRN [facility] [place] [address] 11/14/2023 10:00 AM EDT Infusion Hematology Oncology at [address] [phone] documented as of this encounter [...] questions please contact the health health care analyst that requested your imaging first. ? Electronically signed by: Kervin Lam MD, [facility] ([phone]), at 09/22/2022 3:13 PM Narrative 09/22/2022 3:13 PM EDT EXAMINATION: REQUEST FOR 2ND READ CT NECK CLINICAL HISTORY: Nasopharyngeal fluid collection vs infected node, retropharyngeal adenopathy, BOT fullness, RIGHT thyroid lesion; Sending Institution [facility]; Date of exam 09/21/2022; I believe [...] BOT fullness, RIGHT thyroid lesion; Sending Institution [facility]; Date of exam 09/21/2022; I believe [...] have questions please contactthe health health care analyst that requested your imaging first. 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
--- OUTSIDE RECORDS SUMMARY | 2023-10-11 03:42 | XMS_ITS | Encounter Summary ---
[place] [address] Care Team Providers Care Water Maintenance Supervisor Name Role Phone Bobby Headley MD Primary Care Provider Reason for Visit * Reason Comments On Treatment Visit Encounter Details Date Type Department Care Team (Late st Contact Info) Description 12/03/2014 1:15 PM EDT Office Visit Radiation Oncology at [address] [phone] Nitin Stauffer MD [address] [place] [address] [place] [address] Cancer of prostate with intermediate recurrence risk (stage T2b-c or [place] 7 or PSA 10-20) Social History Tobacco [...] Uncontrollable bleeding A Radiation Oncology doctor is homemaking rehabilitation consultant after our normal hours and on weekends. To call for urgent medical issues from radiation treatments that can not wait until normal business hours, please call and have the dampener operator page the Radiation Oncologist homemaking rehabilitation consultant. Nitin Ramirez MD documented in this encounter Progress Notes * Nitin Stauffer MD - 12/03/2014 1:14 PM EDT [facility] On Treatment [...] Infusion Hematology Oncology at [address] [phone] 10/17/2023 1:00 PM EDT TH Visit (TeleHealth) Hematology/Oncology at [address] [phone] Adrianne Raomn MD [facility] HEMATOLOGY [place] [address] Yael Merlos APRN [facility] HEMATOLOGY [place] [address] 10/17/2023 1:30 PM EDT Infusion Hematology Oncology at [address] [phone] 11/14/2023 9:30 AM EDT Office Visit Hematology/Oncology at [address] [phone] Adrianne Ramon MD [facility] DR HEMATOLOGY [place] [address] Yael Merlos APRN [facility] HEMATOLOGY [place] [address] 11/14/2023 10:00 AM EDT Infusion Hematology Oncology at [address] [phone] documented as of this encounter Visit Diagnoses Diagnosis Cancer of prostate with intermediate recurrence risk (stage T2b-c or [place] 7 or PSA 10-20) Malignant neoplasm of prostate documented in this encounter Care Teams Water Maintenance Supervisor Relationship Specialty Start Date End Date Bobby Headley MD [address] [place] [address] PCP - General 01/29/14 11/28/17 documented as of this encounter
--- OUTSIDE RECORDS SUMMARY | 2023-10-11 03:42 | XMS_ITS | Encounter Summary ---
Author Organization Counts Include [facility] Address [facility] [place] [address] Care Team Providers Care Temporary Office Assistant Name Role Phone Bobby Headley MD Primary Care Provider [phone] Encounter Details Date Type Department Care Team (Late Contact Info) Description 10/21/2014 Orders Only Radiation Oncology at [address] [phone] Nitin Stauffer MD [address] [place] [address] DR RADIATION ONCOLOGY [place], [place] [id number] Social History Tobacco Use Types Packs/Day Years [...] Department Care Team (Late Contact Info) Description 10/11/2023 8:30 AM EDT Infusion Hematology Oncology at [address] [phone] 10/17/2023 1:00 PM EDT TH Visit (TeleHealth) Hematology/Oncology at [address] [phone] Adrianne Ramon MD [facility] DR [place] [address] Yael Merlos APRN [facility] HEMATOLOGY [place] [address] 10/17/2023 1:30 PM EDT Infusion Hematology Oncology at [address] [phone] 11/14/2023 9:30 AM EDT Office Visit Hematology/Oncology at [address] [phone] Adrianne Ramon MD [facility] [place] [address] Yael Merlos FILLER SHREDDER HELPER [facility] [place] [address] 11/14/2023 10:00 AM EDT Infusion Hematology Oncology at [address] [phone] documented as of this encounter Procedures Procedure [...] is a Non-reportable exam Nitin Stauffer MD [facility]M LIBRARY ORD ERABLES documented in this encounter Visit Diagnoses Not on filedocumented in this encounter Care Teams Temporary Office Assistant Relationship Specialty Start Date End Date Bobby Headley MD [address] [place] [address] PCP - General 01/29/14 11/28/17 documented as of this encounter
--- OUTSIDE RECORDS SUMMARY | 2023-10-11 03:42 | XMS_ITS | Encounter Summary ---
[place] [address] Care Team Providers Care Farmworker Cranberry Name Role Phone Frederick Meade MD Primary Care Provider [phone] Reason for Visit * Reason Comments Radiation Follow-up prostate cancer Encounter Details Date Type Department Care Team (Late st Contact Info) Description 08/21/2018 9:00 AM EDT Office Visit Radiation Oncology at [address] [phone] Anna Carr [address] [place] [address] Malignant neoplasm of prostate Social [...] 07/16/2018-- WBC= 6.9, RBC= 3.71, HGB=8, HCT=28.5, SESG=746, FERRITIN= 7 (L) Date PSA Testosterone (normal [...] offered biopsy which was performed 09/01/14, demonstrating [place] 4+ 3 disease in a single core at the right apex. Forty-five percent of that core did appear to be involved. Perineural invasion was not seen. Pathology had been reviewed at [facility]. He did have a prolonged discussion with [...] the prostate Field orientation: Dynamic arc VMAT Molding Engineer Target Coverage (70Gy isodose line indicated): Hormone [...] Biopsy 09/01/2014 Volume in cc 15 cc [place] grade/score a+b=c 4+3=7-- intermediate risk prostate cancer [...] on file Occupational History ??? 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 Financial resource strain: [...] file Gets together: Not on file Attends faith service: Not on file Active member of [...] or finances. He is part of a [employer]els[employer] league and loves to bowl two to [...] Visit from 08/21/2018 in Radiation Oncology at [facility] Weight 94.9 kg (209 lb 4.8 [...] 07/16/2018-- WBC= 6.9, RBC= 3.71, HGB=8, HCT=28.5, STWS=603, FERRITIN= 7 (L) Date PSA Testosterone (normal [...] prostate cancer with pretreatment PSA of 5.4 [place] 4+3=7. He was treated with external beam [...] AM EDT Infusion Hematology Oncology at [address] [phone] 10/17/2023 1:00 PM EDT TH Visit (TeleHealth) Hematology/Oncology at [address] [phone] Adrianne Ramon MD [facility] [place] [address] Yael Merlos, RUBBER GOODS ASSEMBLER [facility] [place] [address] 10/17/2023 1:30 PM EDT Infusion Hematology Oncology at [address] [phone] 11/14/2023 9:30 AM EDT Office Visit Hematology/Oncology at [address] [phone] Adrianne Ramon MD [facility] [place] [address] Yael Merlos, [facility] [place] [address] 11/14/2023 10:00 AM EDT Infusion Hematology Oncology at [address] [phone] documented as of this encounter Visit Diagnoses Diagnosis Malignant neoplasm of prostate documented in this encounter Care Teams Farmworker Cranberry Relationship Specialty Start Date End Date Frederick Meade MD [address] [place] [address] [address] [place] [address] PCP - General Family Medicine 11/29/17 documented as of this encounter
--- OUTSIDE RECORDS SUMMARY | 2023-10-11 03:42 | XMS_ITS | Encounter Summary ---
[place] [address] Care Team Providers Care Behavior Support Specialist Name Role Phone Bobby Headley MD Primary Care Provider [phone] Reason for Visit * Reason Comments Radiation Follow-up prostate cancer Encounter Details Date Type Department Care Team (Late st Contact Info) Description 02/25/2015 1:45 PM EST Office Visit Radiation Oncology at [address] [phone] Anna Carr [address] [place] [address] Malignant neoplasm of prostate Social [...] this encounter Progress Notes * Anna Carr, BAND TACKER - 02/24/2015 4:31 PM EST Images from [...] elevated at 5.4 with only 9% free. [place] with Dr. Vergara July 2014 who offered biopsy which was performed 09/01/14, demonstrating Gleason4 + 3 disease in a single core at the right apex. Forty-five percent of that core did appear to be involved. Perineural invasion was not seen. Pathology had been reviewed here at [facility]. 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 Smoking [...] Negative. Vitals Office Visit from 02/25/[address] [facility] Radiation Oncology Weight - Scale [...] prostate cancer with pretreatment PSA of 5.4 [place] 4+3=7. He was treated with external beam [...] AM EDT Infusion Hematology Oncology at [address] [phone] 10/17/2023 1:00 PM EDT TH Visit (TeleHealth) Hematology/Oncology at [address] [phone] Adrianne Ramon MD [facility] HEMATOLOGY [place] [address] Yael Merlos APRN [facility] HEMATOLOGY [place] [address] 10/17/2023 1:30 PM EDT Infusion Hematology Oncology at [address] [phone] 11/14/2023 9:30 AM EDT Office Visit Hematology/Oncology at [address] [phone] Adrianne Ramon MD [facility] HEMATOLOGY [place] [address] Yael Merlos APRN [facility] HEMATOLOGY [place] [address] 11/14/2023 10:00 AM EDT Infusion Hematology Oncology at [address] [phone] documented as of this encounter Visit Diagnoses Diagnosis Malignant neoplasm of prostate documented in this encounter Care Teams Behavior Support Specialist Relationship Specialty Start Date End Date Bobby Headley MD [address] [place] [address] PCP - General 01/29/14 11/28/17 documented as of this encounter
--- OUTSIDE RECORDS SUMMARY | 2023-10-11 03:42 | XMS_ITS | Encounter Summary ---
Author Organization [facility] [place] [address] Care Team Providers Care Truant Officer Name Role Phone Bobby Headley MD Primary Care Provider [phone] Encounter Details Date Type Department Care Team (Late st Contact Info) Description 01/12/2015 8:15 AM EST Office Visit Radiation Oncology at [address] [phone] Nitin Stauffer MD [address] [place] [address] DR RADIATION ONCOLOGY [place], [place] [phone] Cancer of prostate with intermediate recurrence risk [...] bleeding A Radiation Oncology doctor is auction block clerk after our normal hours and on weekends. To call for urgent medical issues from radiation treatments that can not wait until normal business hours, please call and have the pipe wrapping machine operator page the Radiation Oncologist auction block clerk. Nitin Ramirez MD documented in this encounter Progress Notes * Nitin Stauffer MD - 01/12/2015 7:58 AM EST [facility] On Treatment Visit Patient ID: Cheo [...] AM EDT Infusion Hematology Oncology at [address] [phone] 10/17/2023 1:00 PM EDT TH Visit (TeleHealth) Hematology/Oncology at [address] [phone] Adrianne Ramon MD [facility] HEMATOLOGY [place] [address] Yael Merlos APRN [facility] HEMATOLOGY [place] [address] 10/17/2023 1:30 PM EDT Infusion Hematology Oncology at [address] [phone] 11/14/2023 9:30 AM EDT Office Visit Hematology/Oncology at [address] [phone] Adrianne Ramon MD [facility] HEMATOLOGY [place] [address] Yael Merlos APRN [facility] DR HEMATOLOGY [place] [address] 11/14/2023 10:00 AM EDT Infusion Hematology Oncology at [address] [phone] documented as of this encounter Visit Diagnoses Diagnosis Cancer of prostate with intermediate recurrence risk (stage T2b-c or [place] 7 or PSA 10-20) Malignant neoplasm of prostate documented in this encounter Care Teams Truant Officer Relationship Specialty Start Date End Date Bobby Headley MD [address] [place] [address] PCP - General 01/29/14 11/28/17 documented as of this encounter
--- OUTSIDE RECORDS SUMMARY | 2023-10-11 03:42 | XMS_ITS | Encounter Summary ---
[place] [address] Care Team Providers Care Lime Filter Operator Name Role Phone Frederick Meade MD Primary Care Provider [phone] Encounter Details Date Type Department Care Team (Late st Contact Info) Description 10/10/2022 Telephone Hematology [place] [phone] Castro Jimenez MD [facility] HEMATOLOGY/[place] [address] Social History Tobacco Use Types Packs/Day Years [...] phone call from Dr. Jain (office number [phone]) at [facility] ENT office to discuss below. 72 yo male is seen by DR. Jain for enlarging neck masses. 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 FISH is pending. Since he was worked up in [facility], the results are in [facility] system. Due to the airway concern, pt was started on prednisone last week. Dr. Jain reached out to me to see how quickly signals intelligence superintendent at [facility] can see him. I discussed this case with Dr. Tolliver and soon after that I was told that [facility] Ram[facility], which will be the best plan. Dr. Jain was updated about this plan by the hematology clinic. Castro Jimenez MD [facility] Hematology Oncology Fellow Page [phone] documented in this encounter Plan of Treatment Upcoming Encounters Date Type Department Care Team (Late st Contact Info) Description 10/11/2023 8:30 AM EDT Infusion Hematology Oncology at [address] [phone] 10/17/2023 1:00 PM EDT TH Visit (TeleHealth) Hematology/Oncology at [address] [phone] Adrianne Ramon MD [facility] [place] [address] Yael Merlos, MAIL PROCESSING EQUIPMENT MECHANIC [facility] [place] [address] 10/17/2023 1:30 PM EDT Infusion Hematology Oncology at [address] [phone] 11/14/2023 9:30 AM EDT Office Visit Hematology/Oncology at [address] [phone] Adrianne Ramon MD [facility] [place] [address] Yael Merlos, [facility] [place] [address] 11/14/2023 10:00 AM EDT Infusion Hematology Oncology at [address] [phone] documented as of this encounter Visit Diagnoses Not on filedocumented in this encounter Care Teams Lime Filter Operator Relationship Specialty Start Date End Date Frederick Meade MD [address] [place] [address] [address] [place], [place] [address] PCP - General Family Medicine 11/29/17 documented as of this encounter
--- OUTSIDE RECORDS SUMMARY | 2023-10-11 03:42 | XMS_ITS | Encounter Summary ---
[place] [address] Care Team Providers Care Online Marketing Manager Name Role Phone Bobby Headley MD Primary Care Provider [phone] Reason for Visit * Reason Comments On Treatment Visit Encounter Details Date Type Department Care Team (Late st Contact Info) Description 01/19/2015 8:00 AM EST Office Visit Radiation Oncology at [address] [phone] Nitin Stauffer MD [address] [place] [address] [place] [address] Cancer of prostate with intermediate recurrence risk (stage T2b-c or [place] 7 or PSA 10-20) Social History Tobacco [...] Uncontrollable bleeding A Radiation Oncology doctor is over the horizon targeting supervisor after our normal hours and on weekends. To call for urgent medical issues from radiation treatments that can not wait until normal business hours, please call and have the nuclear plant operator page the Radiation Oncologist over the horizon targeting supervisor. Nitin Ramirez. MD Eh documented in this encounter Progress Notes * Nitin Stauffer MD - 01/19/2015 8:11 AM EST [facility] On Treatment [...] AM EDT Infusion Hematology Oncology at [address] [phone] 10/17/2023 1:00 PM EDT TH Visit (TeleHealth) Hematology/Oncology at [address] [phone] Adrianne Ramon MD [facility] [place] [address] Yael Merlos, [facility] [place] [address] 10/17/2023 1:30 PM EDT Infusion Hematology Oncology at [address] [phone] 11/14/2023 9:30 AM EDT Office Visit Hematology/Oncology at [address] [phone] Adrianne Ramon MD [facility] [place] [address] Yael Merlos [facility] [place] [address] 11/14/2023 10:00 AM EDT Infusion Hematology Oncology at [address] [phone] documented as of this encounter Visit Diagnoses Diagnosis Cancer of prostate with intermediate recurrence risk (stage T2b-c or [place] 7 or PSA 10-20) Malignant neoplasm of prostate documented in this encounter Care Teams Online Marketing Manager Relationship Specialty Start Date End Date Bobby Headley MD [address] [place] [address] PCP - General 01/29/14 11/28/17 documented as of this encounter
--- OUTSIDE RECORDS SUMMARY | 2023-10-11 03:42 | XMS_ITS | Encounter Summary ---
Author Organization [facility] [place] [address] Care Team Providers Care Tool Smith Name Role Phone Frederick Meade MD Primary Care Provider [phone] Encounter Details Date Type Department Care Team (Latest Contact Info) Description 09/22/2022 12:50 AM EDT Ancillary Procedure [place] [phone] Thierry Ruiz MD [facility] [place] [address] Nasopharyngeal mass Social History Tobacco Use Types [...] AM EDT Infusion Hematology Oncology at [address] [phone] 10/17/2023 1:00 PM EDT TH Visit (TeleHealth) Hematology/Oncology at [address] [phone] Adrianne Ramon MD [facility] [place] [address] Yael Merlos APRN [facility] [place] [address] 10/17/2023 1:30 PM EDT Infusion Hematology Oncology at [address] [phone] 11/14/2023 9:30 AM EDT Office Visit Hematology/Oncology at [address] [phone] Adrianne Ramon MD [facility] [place] [address] Yael Merlos BULK LOADER [facility] [place] [address] 11/14/2023 10:00 AM EDT Infusion Hematology Oncology at [address] [phone] documented as of this encounter [...] have questions please contact the health healthcare customer service that requested your imaging first. ? Narrative 09/22/2022 3:13 PM EDT EXAMINATION: REQUEST FOR 2ND READ CT NECK CLINICAL HISTORY: Nasopharyngeal fluid collection vs infected node, retropharyngeal adenopathy, BOT fullness, RIGHT thyroid lesion; Sending Institution [facility]; Date of exam 09/21/2022; I believe [...] BOT fullness, RIGHT thyroid lesion; Sending Institution [facility]; Date of exam 09/21/2022; I believe [...] who have questions please contactthe health healthcare customer service that requested your imaging first. Thierry Ruiz MD IMG OUTSIDE [facility] TATION ORDERABLES documented in this encounter Visit Diagnoses Diagnosis Nasopharyngeal mass Unspecified disease of pharynx documented in this encounter Care Teams Tool Smith Relationship Specialty Start Date End Date Frederick Meade MD [address] [facility] [place] [address] PCP - General Family Medicine 11/29/17 documented as of this encounter
--- OUTSIDE RECORDS SUMMARY | 2023-10-11 03:42 | XMS_ITS | Encounter Summary ---
[place] [address] Care Team Providers Care Applied Psychology Professor Name Role Phone Bobby Headley MD Primary Care Provider [phone] Encounter Details Date Type Department Care Team (Late st Contact Info) Description 12/24/2014 8:15 AM EST Office Visit Radiation Oncology at [address] [phone] Nitin Stauffer MD [address] [place] [address] DR RADIATION ONCOLOGY [place], [place] [phone] Cancer of prostate with intermediate recurrence risk [...] Uncontrollable bleeding A Radiation Oncology doctor is pv design and installation technician after our normal hours and on weekends. To call for urgent medical issues from radiation treatments that can not wait until normal business hours, please call and have the coal trimmer machine operator page the Radiation Oncologist pv design and installation technician. Nitin Ramirez MD documented in this encounter Progress Notes * Nitin Stauffer MD - 12/24/2014 8:16 AM EST [facility] [...] AM EDT Infusion Hematology Oncology at [address] [phone] 10/17/2023 1:00 PM EDT TH Visit (TeleHealth) Hematology/Oncology at [address] [phone] Adrianne Ramon MD [facility] [place] [address] Yael Merlos APRN [facility] [place] [address] 10/17/2023 1:30 PM EDT Infusion Hematology Oncology at [address] [phone] 11/14/2023 9:30 AM EDT Office Visit Hematology/Oncology at [address] [phone] Adrianne Ramon MD [facility] DR [place] [address] Yael Merlos APRN [facility] [place] [address] 11/14/2023 10:00 AM EDT Infusion Hematology Oncology at [address] [phone] documented as of this encounter Visit Diagnoses Diagnosis Cancer of prostate with intermediate recurrence risk (stage T2b-c or [place] 7 or PSA 10-20) Malignant neoplasm of prostate documented in this encounter Care Teams Applied Psychology Professor Relationship Specialty Start Date End Date Bobby Headley MD [address] [place] [address] PCP - General 01/29/14 11/28/17 documented as of this encounter
--- OUTSIDE RECORDS SUMMARY | 2023-10-11 03:42 | XMS_ITS | Encounter Summary ---
[place] [address] Care Team Providers Care Delivery Representative Name Role Phone Frederick Meade MD Primary Care Provider [phone] Reason for Referral * Diagnostic Test (Routine) - Closed Specialty Diagnoses / Procedures Referred By Contac t Referred To Contact Radiology Diagnoses Diffuse large B-cell lymphoma of lymph nodes of multiple regions Procedures IR Mediport Placement Adrianne Ramon MD [facility] DR HEMATOLOGY [place] [address] [place] [address] Referral ID Status Reason Start Date Expiration Date V isits Requested Visits Authorized [id number] Closed Specialty Service Requested 10/11/2022 04/13/2024 1 1 * Diagnostic Test (Routine) - Closed Specialty Diagnoses / Procedures Referred By Contac t Referred To Contact Radiology Diagnoses Non-Hodgkin lymphoma of lymph nodes of multiple regions, unspecified non-Hodgkin lymphoma type Diffuse large B-cell lymphoma of lymph nodes of multiple regions Procedures NM PET CT Standard Plus Extremities and Head Adrianne Ramon MD [facility] DR HEMATOLOGY [place] [address] [place] [address] Referral ID Status Reason Start Date Expiration Date V isits Requested Visits Authorized [id number] Closed Specialty Service Requested 10/10/2022 04/12/2024 1 2 Reason for Visit * Consultation (Routine) - Closed Specialty Diagnoses / Procedures Referred By Contac t Referred To Contact Hematology and Oncology Diagnoses Diffuse large B-cell lymphoma, unspecified body region Lg Ramírez MD [address] [place] [address] Hem Onc Office [address] [place] [phone] Referral ID Status Reason Start Date Expiration Date V isits Requested Visits Authorized [id number] Closed Consult, Test & Treat 10/10/2022 10/10/2023 1 1 Encounter Details Date Type Department Care Team (Late st Contact Info) Description 10/11/2022 12:00 PM EDT Office Visit Hematology/Oncology at [address] [phone] Adrianne Ramon MD [facility] DR HEMATOLOGY [place] [address] Non-Hodgkin lymphoma of lymph nodes of multiple [...] Of [facility] [place] [address] NEW PATIENT EVALUATION Patient Active Problem List [...] ~2 weeks ago saw [facility] in [facility] and when to [facility]. No beds so sent to [facility] for [address] [...] x7 days with nice response. Pathology from [facility] reports large B-cell lymphoma. Double [...] [facility] was 01/17/2012. This dictation platform is no longer active. Please use Genion. ONCOLOGY HISTORY: Intermediate risk prostate cancer (4+3, [...] for the 10/11/22 encounter (Office Visit) with Adiranne Ramon MD Medication Sig Dispense Refill amLODIPine [...] Freire. Enjoys reads, movies, race car, cards. [employer]. 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 Not a . ETOH: 1-3 beers per week Smoking: Quit 1985. Approximately 90-dfng-twqz history Vaping or electronic cigarettes: denies Chewing [...] and BCL-2 protein (Double Expressor.) Flow cytometry ([id number]) supports this interpretation. The differential classification of this lesion is diffuse large B-cell lymphoma versus high grade B-cell lymphoma with MYC and BCL-2 rearrangement. Material has been sent to [facility] to assess the status of these [...] undergo investigation with ultrasound. CT CAP at [facility], report and images have been requested. [...] treatment. We will obtain his pathology from [facility], but it appears to be a [...] will plan to see him tomorrow at [facility] after the PET scan for brief review of the PET scan and discussion of next steps. I did explain to the patient and his family that he most likely will receive R-CHOP chemotherapy which is given 1 day as an outpatient and [facility] and repeated every 3 weeksfor a total of 6 cycles. This takes about 4-1/2 months to complete. I anticipate his lymphoma will respond well. Suspected MEHNAZ - Hgb drop 3gm in last 2 weeks. Taking oral iron 2 tabs per day. 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 No COLO in last 10 years. Will add iron studies to labs today and check PET tomorrow.Will follow. Labs seem most consistent with anemia of chronic disease. Prostate Cancer -DAVE at this time Plan: PET tomorrow [facility] Obtain Path for review at [facility] - follow on FISH Obtain records from [place] -CT chest abdomen and pelvis, discharge summary, and MRI Prednisone -we will hold for now. Await PET scan tomorrow. Mediport -order placed and requested today PTI -on 10/18 at 8 AM with Yael Merlos at [facility] ECHO-tomorrow at [facility] Add on MEHNAZ labs -results returned and listed above Labs on day of PET at [facility] Consult social work at next visit -not yet discussed Consult nutrition at next visit -not yet discussed Plan allopurinol X 14 d w/ C#1 Support with Onpro ID - acv prophy - add antibiotics only if neutropenic. Labs tomorrow at [facility] - hep B/C, HIV, uric I discussed all of the above with the patient and all of his questions were answered. Support and counseling as appropriate. This note was written or modified using [employer] voice recognition software. The final note was screened for finisher fine diamond dies errors. Please excuse any remaining errors. total time: time in counselling: Copy Frederick Meade MD * Polly Orellana RN - 10/11/2022 12:00 PM EDT [facility] Patient Medical Oncology Note SOCIAL ASSESSMENT: See [facility] social assessment information entered. 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 Need FMLA paperwork signed [...] [ ] no Local Pharmacy: [facility] FUNCTIONAL SCREENING: Balance difficulty: [ x [...] AM EDT Infusion Hematology Oncology at [address] [phone] 10/17/2023 1:00 PM EDT TH Visit (TeleHealth) Hematology/Oncology at [address] [phone] Adrianne Ramon MD [facility] HEMATOLOGY [place] [address] Yael Merlos APRN [facility] HEMATOLOGY [place] [address] 10/17/2023 1:30 PM EDT Infusion Hematology Oncology at [address] [phone] 11/14/2023 9:30 AM EDT Office Visit Hematology/Oncology at [address] [address] Adrianne Ramon MD [facility] HEMATOLOGY [place] [address] Yael Merlos INSULATION APPLICATOR [facility] HEMATOLOGY [place] [address] 11/14/2023 10:00 AM EDT Infusion Hematology Oncology at [address] [phone] Scheduled Orders Name Type Priority Associated Diagnoses [...] Uric Acid 5.5 3.5 - 8.5 mg/dL [facility] Blood 03/06/2023 7:45 AM EST 03/06/2023 8:00 AM EST Narrative Resulting Agency Comment Spec In Lab Adrianne Ramon MD CHEMISTRY ORDERA BLES [facility] [place] [address] * Lactate Dehydrogenase (03/06/2023 7:45 AM EST) Lactate Dehydrogenase 198 110 - 220 unit/L [facility] Blood 03/06/2023 7:45 AM EST 03/06/2023 8:00 AM EST Narrative Resulting Agency Comment Spec In Lab Adrianne Ramon MD CHEMISTRY ORDERA BLES Performing Organization Address [facility] Co de Phone Number [facility] [place] [address] * (ABNORMAL) Immunoglobulins, Quantitative (03/06/2023 7:45 AM EST) Immunoglobulin G 572(L) 700 - 1,600 mg/dL [facility] Comment: Pediatric Reference Intervals obtained from the Caliper Reference Interval project. http://www.ContractRoom.ca/caliperproject/index.html IgA 118 70 - 400 mg/dL [facility] IgM 123 40 - 230 mg/dL [facility] Blood 03/06/2023 7:45 AM EST 03/06/2023 8:00 AM EST Narrative Resulting Agency Comment Spec In Lab Adrianne Ramon MD CHEMISTRY ORDERFreedom OSEGUERA Performing Organization Address [facility] de Phone Number [facility] [place] [address] * (ABNORMAL) Comprehensive metabolic panel (non-fasting) (03/06/2023 7:45 AM EST) [facility] Glucose 133 65 - 199 mg/dL [facility] Comment:Diabetes: >=200 mg/d L plus symptoms Blood Urea Nitrogen 12 10 - 20 mg/dL [facility] Creatinine 0.94 0.80 - 1.50 mg/dL [facility] Sodium 143 135 - 145 mmol/L [facility] Potassium 3.7 3.5 - 5.0 mmol/L [facility] Comment: Please note: ??Patients with WBC >100,000 may have falsely elevated Potassium levels. ??For accurate Potassium quantification in these patients send serum separator tube (gold top) for subsequent determinations. ??Contact the Clinical Chemistry Laboratory if there are any questions. Chloride 108(H) 98 - 107 mmol/L [facility] Carbon Dioxide 23 22 - 31 mmol/L [facility] Anion Gap 12 5 - 15 mmol/L [facility] Calcium 9.6 8.5 - 10.5 mg/dL [facility] Protein, Total 6.4 6.1 - 8.0 g/dL [facility] Albumin 4.1 3.2 - 5.2 g/dL [facility] Aspartate Aminotransferase 22 0 - 39 unit/L [facility] Alanine Aminotransferase 18 0 - 55 unit/L [facility] Alkaline Phosphatase 103 40 - 130 unit/L [facility] Bilirubin, Total 0.2 0.2 - 1.3 mg/dL [facility] Est Glomerular Filtration Rate 85 >=60 mL/min/1. 73 m?? [facility] Comment: This patient's estimated GFR [...] In Lab Adrianne Ramon MD CHEMISTRY ORDERA [facility] [place] [address] * HIV Screen, 4th Generation ([facility]/CGP/APD/NLH) (10/17/2022 11:45 AM EDT) Pathologist [facility] HIV Ab/Ag Screen Negative Negative [facility] Comment: This 4th Generation HIV [...] HIV Comment Low Risk of HIV Infection [facility] Blood 10/17/2022 11:4 5 AM EDT 10/17/2022 12:08 PM EDT Narrative Resulting Agency Comment Spec In Lab Adrianne Ramon MD CHEMISTRY ORDERA BLES Performing Organization Address City/[facility]/ZIP Co de Phone Number [facility] [place] [address] * Hepatitis C Antibody (10/17/2022 11:45 AM EDT) Hepatitis C Antibody Negative Negative [facility] Blood 10/17/2022 11:4 5 AM EDT 10/17/2022 12:08 PM EDT Narrative Resulting Agency Comment Spec In Lab Adrianne Ramon MD CHEMISTRY ORDERA BLES Performing Organization Address [facility] Co de Phone Number [facility] [place] [address] * IR Mediport Placement (10/17/2022 10:44 AM EDT) Anatomical Region Laterality Modality X-Ray Angiograph y Narrative 10/17/2022 11:06 AM EDT Interventional Radiology Procedure Note Procedure: Subcutaneous venous port implant Indication: Diffuse large B-cell lymphoma, durable penitentiary central venous access for chemotherapy Procedure summary: [...] who have questions please contact the health rehab care assistant that requested your imaging first. ? Electronically signed by: Rohan Henley MD, [facility] ([phone]), at 10/12/2022 3:23 PM Narrative 10/12/2022 3:23 PM EDT EXAMINATION: NM PET CT STANDARD PLUS EXTREMITIES AND HEAD CLINICAL HISTORY: Non-Hodgkin lymphoma, staging new large B cell lymphoma - involving oropharynx/ cervical. ??staging. TECHNIQUE: Procedure: Following IV injection of 45-sttcqe-6-deoxyglucose (FDG) a standard uptake of approximately 60 [...] staging. TECHNIQUE: Procedure: Following IV injection of 02-vkrezq-7-deoxyglucose(FDG) a standard uptake of approximately 60 minutes, [...] patients who have questions please contactthe health rehab care assistant that requested your imaging first. Electronically signed by: Rohan Henley MD, [facility]([phone]), at 10/12/2022 3:23 PM Adrianne Ramon MD [...] regions documented in this encounter Care Teams Delivery Representative Relationship Specialty Start Date End Date Frederick Meade MD [address] [place] [address] PCP - General Family Medicine 11/29/17 documented as of this encounter
--- OUTSIDE RECORDS SUMMARY | 2023-10-11 03:42 | XMS_ITS | Encounter Summary ---
[place] [address] Care Team Providers Care Medical Records Coder Name Role Phone Bobby Headley MD Primary Care Provider [phone] Reason for Visit * Reason Comments Prostate Cancer Lupron injection Encounter Details Date Type Department Care Team (Late st Contact Info) Description 12/22/2014 8:30 AM EST Infusion Hematology Oncology at [address] [phone] Malignant neoplasm of prostate Social [...] AM EDT Infusion Hematology Oncology at [address] [phone] 10/17/2023 1:00 PM EDT TH Visit (TeleHealth) Hematology/Oncology at [address] [phone] Adrianne Ramon MD [facility] H[place]AT[place]Y [place] [address] Yael Merlos [facility] [place] [address] 10/17/2023 1:30 PM EDT Infusion Hematology Oncology at [address] [phone] 11/14/2023 9:30 AM EDT Office Visit Hematology/Oncology at [address] [phone] Adrianne Ramon MD [facility] H[place]ATOLOGY [place] [address] Yael Merlos [facility] [place] [address] 11/14/2023 10:00 AM EDT Infusion Hematology Oncology at [address] [phone] documented as of this encounter Visit Diagnoses [...] Gluteal documented in this encounter Care Teams Medical Records Coder Relationship Specialty Start Date End Date Bobby Headley MD [address] [place] [address] PCP - General 01/29/14 11/28/17 documented as of this encounter
--- OUTSIDE RECORDS SUMMARY | 2023-10-11 03:42 | XMS_ITS | Encounter Summary ---
[place] [address] Care Team Providers Care Chemical Checker Name Role Phone Bobby Headley MD Primary Care Provider [phone] Encounter Details Date Type Department Care Team (Late st Contact Info) Description 12/17/2014 8:15 AM EDT Office Visit Radiation Oncology at [address] [phone] Nitin Stauffer MD [address] [place] [address] DR RADIATION ONCOLOGY [place], [place] [phone] Cancer of prostate with intermediate recurrence risk [...] - 12/17/2014 8:11 AM EDT Dear Mr. Ferire, I believe that overall you are doing [...] Uncontrollable bleeding A Radiation Oncology doctor is information security director after our normal hours and on weekends. To call for urgent medical issues from radiation treatments that can not wait until normal business hours, please call and have the air saw operator page the Radiation Oncologist information security director. Nitin Ramirez MD documented in this encounter Progress Notes * Nitin Stauffer MD - 12/17/2014 8:[address] [facility] [...] AM EDT Infusion Hematology Oncology at [address] [phone] 10/17/2023 1:00 PM EDT TH Visit (TeleHealth) Hematology/Oncology at [address] [phone] Adrianne Ramon MD [facility] [place] [address] Yael Merlos APRN [facility] [place] [address] 10/17/2023 1:30 PM EDT Infusion Hematology Oncology at [address] [phone] 11/14/2023 9:30 AM EDT Office Visit Hematology/Oncology at [address] [phone] Adrianne Ramon MD [facility] DR [place] [address] Yael Merlos APRN [facility] [place] [address] 11/14/2023 10:00 AM EDT Infusion Hematology Oncology at [address] [phone] documented as of this encounter Visit Diagnoses Diagnosis Cancer of prostate with intermediate recurrence risk (stage T2b-c or Cierra 7 or PSA 10-20) Malignant neoplasm of prostate documented in this encounter Care Teams Chemical Checker Relationship Specialty Start Date End Date Bobby Headley MD [address] [place] [address] PCP - General 01/29/14 11/28/17 documented as of this encounter
--- OUTSIDE RECORDS SUMMARY | 2023-10-11 03:42 | XMS_ITS | Encounter Summary ---
[place] [address] Care Team Providers Care Presser All Around Name Role Phone Bobby Headley MD Primary Care Provider [phone] Reason for Visit * Reason Comments Radiation Follow-up prostate cancer Encounter Details Date Type Department Care Team (Late st Contact Info) Description 06/03/2015 3:15 PM EDT Office Visit Radiation Oncology at [address] [phone] [address] Carr [address] RADIATION ONCOLOGY [place], [place] [phone] Malignant neoplasm of prostate Social History Tobacco [...] encounter Progress Notes * Anna Carr Parish, CHAIN SALES CONSULTANT - 06/02/2015 9:56 AM EDT Images from [...] elevated at 5.4 with only 9% free. Sinclair with Dr. Vergara July 2014 who offered biopsy which was performed 09/01/14, demonstrating Gleason4 + 3 disease in a single core at the right apex. Forty-five percent of that core did appear to be involved. Perineural invasion was not seen. Pathology had been reviewed here at [facility]. 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 [...] sporting events. He will be going to [place] in September to attend a [employer] tournament. He feels he is coping well. [...] Negative. Vitals Office Visit from 06/03/2015 in [facility] Radiation Oncology Weight - Scale 92.08 [...] prostate cancer with pretreatment PSA of 5.4 Sheldahl 4+3=7. He was treated with external beam [...] AM EDT Infusion Hematology Oncology at [address] [phone] 10/17/2023 1:00 PM EDT TH Visit (TeleHealth) Hematology/Oncology at [address] [phone] Adrianne Ramon MD [facility] [place] [address] Yael Merlos, CHAIN SALES CONSULTANT [facility] [place] [address] 10/17/2023 1:30 PM EDT Infusion Hematology Oncology at [address] [phone] 11/14/2023 9:30 AM EDT Office Visit Hematology/Oncology at [address] [phone] Adrianne Ramon MD [facility] [place] [address] Yael Merlos, [facility] [place] [address] 11/14/2023 10:00 AM EDT Infusion Hematology Oncology at [address] [phone] documented as of this encounter Visit Diagnoses Diagnosis Malignant neoplasm of prostate documented in this encounter Care Teams Presser All Around Relationship Specialty Start Date End Date Bobby Headley MD [address] [place] [address] PCP - General 01/29/14 11/28/17 documented as of this encounter
--- OUTSIDE RECORDS SUMMARY | 2023-10-11 03:42 | XMS_ITS | Encounter Summary ---
[place] [address] Care Team Providers Care Equipment Service Associate Name Role Phone Bobby Headley MD Primary Care Provider [phone] Encounter Details Date Type Department Care Team (Late st Contact Info) Description 02/01/2015 Notes Only Radiation Oncology at [address] [phone] Nitin Stauffer MD [address] [place] [address] DR RADIATION ONCOLOGY [place], [place] [phone] Social History Tobacco Use Types Packs/Day Years [...] his prostate and proximal SV at the [facility] in [place], [place]. Details of his radiation treatment course are as below. RT information: Date of RT Start: 11/25/14 Date of RT Completion: 01/26/15 Dose and targets: 70.2 Gy to the proximal SV and prostate, 79.2Gy to the prostate Field orientation: Dynamic arc VMAT Field Operations Manager Target Coverage (70Gy isodose line indicated): [...] AM EDT Infusion Hematology Oncology at [address] [phone] 10/17/2023 1:00 PM EDT TH Visit (TeleHealth) Hematology/Oncology at [address] [phone] [facility] DR HEMATOLOGY [place] [address] [facility] H[place]ATOLOGY [place] [address] 10/17/2023 1:30 PM EDT Infusion Hematology Oncology at [address] [phone] 11/14/2023 9:30 AM EDT Office Visit Hematology/Oncology at [address] [phone] [facility] DR HEMATOLOGY [place] [address] [facility] HEMATOLOGY [place] [address] 11/14/2023 10:00 AM EDT Infusion Hematology Oncology at [address] [phone] documented as of this encounter Visit Diagnoses Not on filedocumented in this encounter Care Teams Equipment Service Associate Relationship Specialty Start Date End Date Bobby Headley MD [address] [place] [address] PCP - General 01/29/14 11/28/17 documented as of this encounter
--- OUTSIDE RECORDS SUMMARY | 2023-10-11 03:42 | XMS_ITS | Encounter Summary ---
[place] [address] Care Team Providers Care Lamp Shade Joiner Name Role Phone Frederick Meade MD Primary Care Provider [phone] Encounter Details Date Type Department Care Team (Late st Contact Info) Description 03/17/2019 10:00 AM EST Office Visit Radiation Oncology at [address] [phone] Nitin Stauffer MD [address] [place] [address] DR RADIATION ONCOLOGY [place], [place] [id number] Malignant neoplasm of prostate Social History Tobacco [...] 03/17/19 Nitin Stauffer MD, MS Radiation Oncology [facility] [phone] (paging hoop rolls operator) Pager #[phone] Patient ID: Cheo Freire is a 64 [...] totally confined to bed or chair IMPRESSION/PLAN vermin exterminator effects from radiotherapy: Biochemically and clinically DAVE. No significant residential adverse effects from RT/ADT. Followup: Given persistently [...] minute visit was spent with the patient [id number] reviewing his interval medical history and answering questions related to his prostate cancer. documented in this encounter Plan of Treatment Upcoming Encounters Date Type Department Care Team (Late st Contact Info) Description 10/11/2023 8:30 AM EDT Infusion Hematology Oncology at [address] [phone] 10/17/2023 1:00 PM EDT TH Visit (TeleHealth) Hematology/Oncology at [address] [phone] Adrianne Ramon MD [facility] [place] [address] Yael Merlos [facility] [place] [address] 10/17/2023 1:30 PM EDT Infusion Hematology Oncology at [address] [phone] 11/14/2023 9:30 AM EDT Office Visit Hematology/Oncology at [address] [phone] Adrianne Ramon MD [facility] [place] [address] Yael Merlos [facility] [place] [address] 11/14/2023 10:00 AM EDT Infusion Hematology Oncology at [address] [phone] documented as of this encounter Visit Diagnoses Diagnosis Malignant neoplasm of prostate documented in this encounter Care Teams Lamp Shade Joiner Relationship Specialty Start Date End Date Frederick Meade MD [address] [place] [address] [address] [place] [address] PCP - General Family Medicine 11/29/17 documented as of this encounter
--- OUTSIDE RECORDS SUMMARY | 2023-10-11 03:42 | XMS_ITS | Encounter Summary ---
Author Organization [facility] [place] [address] Care Team Providers Care Doughnut Dough Mixer Name Role Phone Frederick Meade MD Primary Care Provider [phone] Reason for Referral * Consultation (Routine) - Closed Specialty Diagnoses / Procedures Referred By Contac t Referred To Contact Hematology and Oncology Diagnoses Diffuse large B-cell lymphoma, unspecified body region Lg Ramírez MD [address] [place] [address] [facility] Hem Onc Office [address] [place] [phone] Referral ID Status Reason Start Date Expiration Date V isits Requested Visits Authorized [id number] Closed Consult, Test & Treat 10/10/2022 10/10/2023 1 1 Encounter Details Date Type Department Care Team (Late st Contact Info) Description 10/10/2022 Transcribe Orders eDH Incoming Referrals [phone] Lg Ramírez MD [address] [place] [phone] Diffuse large B-cell lymphoma, unspecified body region [...] AM EDT Infusion Hematology Oncology at [address] [phone] 10/17/2023 1:00 PM EDT TH Visit (TeleHealth) Hematology/Oncology at [address] [phone] Adrianne Ramon MD [facility] HEMATOLOGY [place] [address] Yael Merlos, INDOOR LANDSCAPER/GARDENER [facility] HEMATOLOGY [place] [address] 10/17/2023 1:30 PM EDT Infusion Hematology Oncology at [address] [phone] 11/14/2023 9:30 AM EDT Office Visit Hematology/Oncology at [address] [phone] Adrianne Ramon MD [facility] HEMATOLOGY AND [place] [address] Yael Merlos [facility] HEMATOLOGY [place] [address] 11/14/2023 10:00 AM EDT Infusion Hematology Oncology at [address] [phone] Scheduled Referrals Name Type Priority Associated Diagnoses Orde r Schedule Referral to Hematology and Oncology Outpatient Referral Routine Diffuse large B-cell lymphoma, unspecified body region Ordered: 10/10/2022 documented as of this encounter Visit Diagnoses Diagnosis Diffuse large B-cell lymphoma, unspecified body region documented in this encounter Care Teams Doughnut Dough Mixer Relationship Specialty Start Date End Date Frederick Meade MD [address] [place] [address] PCP - General Family Medicine 11/29/17 documented as of this encounter
--- OUTSIDE RECORDS SUMMARY | 2023-10-11 03:42 | XMS_ITS | Encounter Summary ---
[place] [address] Care Team Providers Care Neonatal Nurse Name Role Phone Bobby Headley MD Primary Care Provider [phone] Encounter Details Date Type Department Care Team (Late st Contact Info) Description 12/10/2014 11:45 AM EDT Office Visit Radiation Oncology at [address] [phone] Nitin Stauffer MD [address] [place] [address] DR RADIATION ONCOLOGY [place], [place] [id number] Cancer of prostate with intermediate recurrence risk (stage T2b-c or [place] 7 or PSA 10-20) Social History Tobacco [...] Uncontrollable bleeding A Radiation Oncology doctor is provider relations specialist after our normal hours and on weekends. To call for urgent medical issues from radiation treatments that can not wait until normal business hours, please call and have the electric pile driver operator page the Radiation Oncologist provider relations specialist. Nitin Ramirez MD documented in this encounter Progress Notes * Nitin Stauffer MD - 12/10/2014 11:08 AM EDT [facility] [...] AM EDT Infusion Hematology Oncology at [address] [phone] 10/17/2023 1:00 PM EDT TH Visit (TeleHealth) Hematology/Oncology at [address] [phone] Adrianne Ramon MD [facility] [place] [address] Yael Merlos APRN [facility] [place] [address] 10/17/2023 1:30 PM EDT Infusion Hematology Oncology at [address] [phone] 11/14/2023 9:30 AM EDT Office Visit Hematology/Oncology at [address] [phone] Adrianne Ramon MD [facility] DR [place] [address] Yael Merlos APRN [facility] [place] [address] 11/14/2023 10:00 AM EDT Infusion Hematology Oncology at [address] [phone] documented as of this encounter Visit Diagnoses Diagnosis Cancer of prostate with intermediate recurrence risk (stage T2b-c or [place] 7 or PSA 10-20) Malignant neoplasm of prostate documented in this encounter Care Teams Neonatal Nurse Relationship Specialty Start Date End Date Bobby Headley MD [address] [place] [address] PCP - General 01/29/14 11/28/17 documented as of this encounter
--- OUTSIDE RECORDS SUMMARY | 2023-10-11 03:42 | XMS_ITS | Encounter Summary ---
[place] [address] Care Team Providers Care Dementia Program Director Name Role Phone Bobby Headley MD Primary Care Provider [phone] Encounter Details Date Type Department Care Team (Late Contact Info) Description 11/21/2017 Orders Only Radiation Oncology at [address] [phone] Lidia Reno RN Malignant neoplasm of prostate [...] AM EDT Infusion Hematology Oncology at [address] [phone] 10/17/2023 1:00 PM EDT TH Visit (TeleHealth) Hematology/Oncology at [address] [phone] Adrianne Ramon MD [facility] [place] [address] Yael Merlos, [facility] [place] [address] 10/17/2023 1:30 PM EDT Infusion Hematology Oncology at [address] [phone] 11/14/2023 9:30 AM EDT Office Visit Hematology/Oncology at [address] [phone] Adrianne Ramon MD [facility] [place] [address] Yael Merlos, [facility] [place] [address] 11/14/2023 10:00 AM EDT Infusion Hematology Oncology at [address] [phone] documented as of this encounter Visit Diagnoses Diagnosis Malignant neoplasm of prostate documented in this encounter Care Teams Dementia Program Director Relationship Specialty Start Date End Date Bobby Headley MD [address] [place] [address] PCP - General 01/29/14 11/28/17 documented as of this encounter
--- OUTSIDE RECORDS SUMMARY | 2023-10-11 03:42 | XMS_ITS | Encounter Summary ---
Author Organization [facility] [place] [address] Care Team Providers Care Pipefitter Helper Name Role Phone Bobby Headley MD Primary Care Provider [phone] Encounter Details Date Type Department Care Team (Late st Contact Info) Description 12/01/2015 10:15 AM EDT Office Visit Hematology/Oncology at [address] [phone] Annika Quezada APRN [facility] [place] [address] Prostate cancer Social History Tobacco Use Types [...] elevated at 5.4 with only 9% free. [place] with Dr. 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 [...] to their sporting events. He went to [place] in September to attend a [employer] tournament and had a great time. He [...] AM EDT Infusion Hematology Oncology at [address] [phone] 10/17/2023 1:00 PM EDT TH Visit (TeleHealth) Hematology/Oncology at [address] [phone] Adrianne Ramon MD [facility] [place] [address] Yael Merlos APRN [facility] [place] [address] 10/17/2023 1:30 PM EDT Infusion Hematology Oncology at [address] [phone] 11/14/2023 9:30 AM EDT Office Visit Hematology/Oncology at [address] [phone] Adrianne Ramon MD [facility] DR [place] [address] Yael Merlos APRN [facility] [place] [address] 11/14/2023 10:00 AM EDT Infusion Hematology Oncology at [address] [phone] documented as of this encounter Visit Diagnoses Diagnosis Prostate cancer Malignant neoplasm of prostate documented in this encounter Care Teams Pipefitter Helper Relationship Specialty Start Date End Date Bobby Headley MD [address] [place] [address] PCP - General 01/29/14 11/28/17 documented as of this encounter
--- OUTSIDE RECORDS SUMMARY | 2023-10-11 03:42 | XMS_ITS | Encounter Summary ---
[place] [address] Care Team Providers Care Lock Technician Name Role Phone Bobby Headley MD Primary Care Provider [phone] Encounter Details Date Type Department Care Team (Late st Contact Info) Description 01/07/2015 8:00 AM EST Office Visit Radiation Oncology at [address] [phone] Nitin Stauffer MD [address] [place] [address] DR RADIATION ONCOLOGY [place], [place] [phone] Malignant neoplasm of prostate Social History Tobacco [...] Uncontrollable bleeding A Radiation Oncology doctor is fleet salesperson after our normal hours and on weekends. To call for urgent medical issues from radiation treatments that can not wait until normal business hours, please call and have the slubber operator page the Radiation Oncologist fleet salesperson. Nitin Ramirez MD documented in this encounter Progress Notes * Nitin Stauffer MD - 01/07/2015 8:02 AM EST [facility] On Treatment Visit Patient ID: [...] AM EDT Infusion Hematology Oncology at [address] [phone] 10/17/2023 1:00 PM EDT TH Visit (TeleHealth) Hematology/Oncology at [address] [phone] Adrianne Ramon MD [facility] [place] [address] Yael Merlos APRN [facility] HEMATOLOGY [place] [address] 10/17/2023 1:30 PM EDT Infusion Hematology Oncology at [address] [phone] 11/14/2023 9:30 AM EDT Office Visit Hematology/Oncology at [address] [phone] Adrianne Ramon MD [facility] DR [place] [address] Yael Merlos APRN [facility] [place] [address] 11/14/2023 10:00 AM EDT Infusion Hematology Oncology at [address] [phone] documented as of this encounter Visit Diagnoses Diagnosis Malignant neoplasm of prostate documented in this encounter Care Teams Lock Technician Relationship Specialty Start Date End Date Bobby Headley MD [address] [place] [address] PCP - General 01/29/14 11/28/17 documented as of this encounter
--- OUTSIDE RECORDS SUMMARY | 2023-10-11 03:42 | XMS_ITS | Encounter Summary ---
[place] [address] Care Team Providers Care News Department Intern Name Role Phone Frederick Meade MD Primary Care Provider [phone] Reason for Visit * Reason Comments Radiation Follow-up prostate cancer Encounter Details Date Type Department Care Team (Late st Contact Info) Description 11/29/2017 1:45 PM EDT Office Visit Radiation Oncology at [address] [phone] Anna Carr [address] [place] [address] Malignant neoplasm of prostate Social [...] elevated at 5.4 with only 9% free. [place] with Dr. 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 [...] AM EDT Infusion Hematology Oncology at [address] [phone] 10/17/2023 1:00 PM EDT TH Visit (TeleHealth) Hematology/Oncology at [address] [phone] Adrianne Ramon MD [facility] [place] [address] Yael Merlos APRN [facility] [place] [address] 10/17/2023 1:30 PM EDT Infusion Hematology Oncology at [address] [phone] 11/14/2023 9:30 AM EDT Office Visit Hematology/Oncology at [address] [phone] Adrianne Ramon MD [facility] [place] [address] Yael Merlos APRN [facility] [place] [address] 11/14/2023 10:00 AM EDT Infusion Hematology Oncology at [address] [phone] documented as of this encounter Procedures Procedure [...] prostate documented in this encounter Care Teams News Department Intern Relationship Specialty Start Date End Date Frederick Meade MD [address] [place] [address] PCP - General Family Medicine 11/29/17 documented as of this encounter
--- OUTSIDE RECORDS SUMMARY | 2023-10-11 03:42 | XMS_ITS | Encounter Summary ---
[place] [address] Care Team Providers Care Intelligence Director Name Role Phone Bobby Headley MD Primary Care Provider [phone] Encounter Details Date Type Department Care Team (Late st Contact Info) Description 10/14/2014 8:30 AM EDT Procedure visit Radiation Oncology at [address] [phone] Nitin Stauffer MD [address] [place] [address] DR RADIATION ONCOLOGY [place], [place] [id number] Cancer of prostate with intermediate recurrence risk [...] to undergo MRI of the prostate at [facility]. * Christine Fernando RN - 10/14/2014 8:26 [...] needed for mild discomfort. He has the [facility] phone number and verbalized understanding to ask for the clinical rehabilitation aide radiation oncologist if he needs to after clinic hours. Time of discharge: 10:00 vital signs stable,and gait steady and dressed himself. Dr Stauffer saw him briefly before discharge. documented in this encounter Plan of Treatment Upcoming Encounters Date Type Department Care Team (Late st Contact Info) Description 10/11/2023 8:30 AM EDT Infusion Hematology Oncology at [address] [phone] 10/17/2023 1:00 PM EDT TH Visit (TeleHealth) Hematology/Oncology at [address] [phone] Adrianne Ramon MD [facility] HEMATOLOGY [place] [address] Yael Merlos APRN [facility] HEMATOLOGY [place] [address] 10/17/2023 1:30 PM EDT Infusion Hematology Oncology at [address] [phone] 11/14/2023 9:30 AM EDT Office Visit Hematology/Oncology at [address] [phone] Adrianne Ramon MD [facility] [place] [address] Yael Merlos APRN [facility] [place] [address] 11/14/2023 10:00 AM EDT Infusion Hematology Oncology at [address] [phone] documented as of this encounter Visit Diagnoses Diagnosis Cancer of prostate with intermediate recurrence risk (stage T2b-c or [place] 7 or PSA 10-20) Malignant neoplasm of prostate documented in this encounter Care Teams Intelligence Director Relationship Specialty Start Date End Date Bobby Headley MD [address] [place] [address] PCP - General 01/29/14 11/28/17 documented as of this encounter
--- OUTSIDE RECORDS SUMMARY | 2023-10-11 03:42 | XMS_ITS | Encounter Summary ---
[place] [address] Care Team Providers Care Protozoology Teacher Name Role Phone Bobby Headley MD Primary Care Provider [phone] Reason for Visit * Reason Comments Radiation Follow-up prostate cancer Encounter Details Date Type Department Care Team (Late st Contact Info) Description 05/31/2017 11:15 AM EDT Office Visit Radiation Oncology at [address] [phone] Anna Carr [address] RADIATION ONCOLOGY [place], [place] [phone] Malignant neoplasm of prostate Social History Tobacco [...] Visit from 05/31/2017 in Radiation Oncology at [facility] Weight 91.7 kg (202 lb [...] prostate cancer with pretreatment PSA of 5.4 [place] 4+3=7. He was treated with external beam [...] elevated at 5.4 with only 9% free. [place] with Dr. Vergara July 2014 who offered biopsy which was performed 09/01/14, demonstrating Gleason4 + 3 disease in a single core at the right apex. Forty-five percent of that core did appear to be involved. Perineural invasion was not seen. Pathology had been reviewed [facility]. 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 [...] sporting events. He will be going to [place] in September to attend a [employer] tournament. He feels he is coping well. [...] Visit from 05/31/2017 in Radiation Oncology at [facility] Weight 91.7 kg (202 lb [...] content normal. Vitals reviewed. 05/24/2017 labs CA=9.3, XNL=987, BUN=37, CREAT=1.45, EGFR=48.25, NP=672, K=3.4, ZF=630, CO2=25.1, MG=2.0 Date PSA testosterone 05/23/2017 < [...] prostate cancer with pretreatment PSA of 5.4 [place] 4+3=7. He was treated with external beam [...] AM EDT Infusion Hematology Oncology at [address] [phone] 10/17/2023 1:00 PM EDT TH Visit (TeleHealth) Hematology/Oncology at [address] [phone] Adrianne Ramon MD [facility] [place] [address] Yael Merlos, SCHOOL PSYCHOLOGY PROFESSOR [facility] [place] [address] 10/17/2023 1:30 PM EDT Infusion Hematology Oncology at [address] [phone] 11/14/2023 9:30 AM EDT Office Visit Hematology/Oncology at [address] [phone] Adrianne Ramon MD [facility] [place] [address] Yael Merlos, SCHOOL PSYCHOLOGY PROFESSOR [facility] [place] [address] 11/14/2023 10:00 AM EDT Infusion Hematology Oncology at [address] [phone] documented as of this encounter Visit Diagnoses Diagnosis Malignant neoplasm of prostate documented in this encounter Care Teams Protozoology Teacher Relationship Specialty Start Date End Date Bobby Headley MD [address] [place] [address] PCP - General 01/29/14 11/28/17 documented as of this encounter
--- OUTSIDE RECORDS SUMMARY | 2023-10-11 03:42 | XMS_ITS | Encounter Summary ---
Author Organization [facility] [place] [address] Care Team Providers Care Clinical Allergist Name Role Phone Bobby Headley MD Primary Care Provider Encounter Details Date Type Department Care Team (Late st Contact Info) Description 05/24/2016 11:00 AM EDT Office Visit Hematology/Oncology at [address] [phone] Annika Quezada APRN [facility] [place] [address] Prostate cancer Social History Tobacco Use Types [...] elevated at 5.4 with only 9% free. [place] with Dr. Vergara July 2014 who offered biopsy which was performed 09/01/14, demonstrating Gleason4 + 3 disease in a single core at the right apex. Forty-five percent of that core did appear to be involved. Perineural invasion was not seen. Pathology had been reviewed here at [facility]. 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 Smoking status: Former Smoker Packs/day: 1.00 Types: Cigarettes ??? Smokeless tobacco: Former User Quit date: 02/19/1986 Comment: started smoking in [place] ??? Alcohol use 1.8 oz/week 3 Standard [...] to their sporting events. He went to [place] last September to attend a [employer] tournament andhad a great time. He feels [...] prostate cancer with pretreatment PSA of 5.4 [place] 4+3=7. He was treated with external beam [...] AM EDT Infusion Hematology Oncology at [address] [phone] 10/17/2023 1:00 PM EDT TH Visit (TeleHealth) Hematology/Oncology at [address] [phone] Adrianne Ramon MD [facility] HEMATOLOGY [place] [address] Yael Merlos APRN [facility] HEMATOLOGY [place] [address] 10/17/2023 1:30 PM EDT Infusion Hematology Oncology at [address] [phone] 11/14/2023 9:30 AM EDT Office Visit Hematology/Oncology at [address] [phone] Adrianne Ramon MD [facility] HEMATOLOGY [place] [address] Yael Merlos [facility] HEMATOLOGY [place] [address] 11/14/2023 10:00 AM EDT Infusion Hematology Oncology at [address] [phone] documented as of this encounter Visit Diagnoses Diagnosis Prostate cancer Malignant neoplasm of prostate documented in this encounter Care Teams Clinical Allergist Relationship Specialty Start Date End Date Bobby Headley MD [address] [address] PCP - General 01/29/14 11/28/17 documented as of this encounter
--- OUTSIDE RECORDS SUMMARY | 2023-10-11 03:42 | XMS_ITS | Encounter Summary ---
[place] [address] Care Team Providers Care Jointer Machine Operator Name Role Phone Bobby Headley MD Primary Care Provider [phone] Encounter Details Date Type Department Care Team (Latest Contact Info) Description 01/04/2015 Unscheduled Encounter Radiation Oncology at [address] [phone] Lidia Reno, RN Malignant neoplasm of prostate [...] AM EDT Infusion Hematology Oncology at [address] [address] 10/17/2023 1:00 PM EDT TH Visit (TeleHealth) Hematology/Oncology at [address] [phone] Adrianne Ramon MD [facility] HEMATOLOGY [place] [address] Yael Merlos APRN [facility] HEMATOLOGY [place] [address] 10/17/2023 1:30 PM EDT Infusion Hematology Oncology at [address] [address] 11/14/2023 9:30 AM EDT Office Visit Hematology/Oncology at [address] [address] Adrianne Ramon MD [facility] HEMATOLOGY [place] [address] Yael Merlos APRN [facility] HEMATOLOGY [place] [address] 11/14/2023 10:00 AM EDT Infusion Hematology Oncology at [address] [address] documented as of this encounter Visit Diagnoses Diagnosis Malignant neoplasm of prostate documented in this encounter Care Teams Jointer Machine Operator Relationship Specialty Start Date End Date Bobby Headley MD [address] [place] [address] PCP - General 01/29/14 11/28/17 documented as of this encounter
--- OUTSIDE RECORDS SUMMARY | 2023-10-11 03:42 | XMS_ITS | Encounter Summary ---
[place] [address] Care Team Providers Care Culinary Chef Name Role Phone Bobby Headley MD Primary Care Provider [phone] Reason for Visit * Reason Comments Radiation Follow-up prostate cancer Encounter Details Date Type Department Care Team (Late st Contact Info) Description 09/09/2015 10:30 AM EDT Office Visit Radiation Oncology at [address] [phone] Anna Carr [address] [place] [address] Malignant neoplasm of prostate Social [...] 5.4 Vitals Office Visit from 09/09/2015 in [facility] Radiation Oncology Weight - [...] prostate cancer with pretreatment PSA of 5.4 [place] 4+3=7. He was treated with external beam [...] elevated at 5.4 with only 9% free. [place] with Dr. Vergara July 2014 who offered biopsy which was performed 09/01/14, demonstrating Gleason4 + 3 disease in a single core at the right apex. Forty-five percent of that core did appear to be involved. Perineural invasion was not seen. Pathology had been reviewed here at [facility]. 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 Smoking [...] sporting events. He will be going to [place] in September to attend a [employer] tournament. He feels he is coping well. [...] 100 Vitals Office Visit from 09/09/2015 in [facility] Radiation Oncology Weight - [...] AM EDT Infusion Hematology Oncology at [address] [address] 10/17/2023 1:00 PM EDT TH Visit (TeleHealth) Hematology/Oncology at [address] [address] Adrianne Ramon MD [facility] [place] [address] Yael Merlos APRN [facility] [place] [address] 10/17/2023 1:30 PM EDT Infusion Hematology Oncology at [address] [address] 11/14/2023 9:30 AM EDT Office Visit Hematology/Oncology at [address] [address] Adrianne Ramon MD [facility] HEMATOLOGY [place] [address] Yael Merlos APRN [facility] [place] [address] 11/14/2023 10:00 AM EDT Infusion Hematology Oncology at [address] [address] documented as of this encounter Visit Diagnoses Diagnosis Malignant neoplasm of prostate documented in this encounter Care Teams Culinary Chef Relationship Specialty Start Date End Date Bobby Headley MD [address] [place] [address] PCP - General 01/29/14 11/28/17 documented as of this encounter
--- OUTSIDE RECORDS SUMMARY | 2023-10-11 03:42 | XMS_ITS | Encounter Summary ---
Author Organization [facility] [place] [address] Care Team Providers Care Kitchen Aide Name Role Phone Bobby Headley MD Primary Care Provider [phone] Encounter Details Date Type Department Care Team (Latest Contact Info) Description 01/07/2015 Unscheduled Encounter Hematology/Oncology at [address] [phone] [facility] [place] [address] Dietary counseling and surveillance; Dietary counseling Social [...] Narvaez RD - 01/07/2015 8:45 AM EST [facility] Initial Dietitian Assessment Seen By: Gay Narvaez MS, RD, SUPERVISOR WELDING EQUIPMENT REPAIRER, LD Referred by: Dr. Stauffer Reason for [...] AM EDT Infusion Hematology Oncology at [address] [address] 10/17/2023 1:00 PM EDT TH Visit (TeleHealth) Hematology/Oncology at [address] [address] Adrianne Ramon MD [facility] [place] [address] Yael Merlos, [facility] [place] [address] 10/17/2023 1:30 PM EDT Infusion Hematology Oncology at [address] [address] 11/14/2023 9:30 AM EDT Office Visit Hematology/Oncology at [address] [address] Adrianne Ramon MD [facility] [place] [address] Yael Merlos, [facility] [place] [address] 11/14/2023 10:00 AM EDT Infusion Hematology Oncology at [address] [address] documented as of this encounter Visit Diagnoses Diagnosis Dietary counseling and surveillance Dietary surveillance and counseling Dietary counseling Dietary surveillance and counseling documented in this encounter Care Teams Kitchen Aide Relationship Specialty Start Date End Date Bobby Headley MD [address] [place] [address] PCP - General 01/29/14 11/28/17 documented as of this encounter
--- OUTSIDE RECORDS SUMMARY | 2023-10-11 03:42 | XMS_ITS | Encounter Summary ---
[place] [address] Care Team Providers Care Electric Pile Driver Operator Name Role Phone Frederick Meade MD Primary Care Provider [phone] Encounter Details Date Type Department Care Team (Late st Contact Info) Description 09/22/2022 Notes Only [place] [address] Karly Jacobs MD [facility] [place] [address] Social History Tobacco Use Types Packs/Day Years [...] AM EDT Infusion Hematology Oncology at [address] [phone] 10/17/2023 1:00 PM EDT TH Visit (TeleHealth) Hematology/Oncology at [address] [phone] Adrianne Ramon MD [facility] HEMATOLOGY [place] [address] Yael Merlos, KARLA [facility] HEMATOLOGY [place] [address] 10/17/2023 1:30 PM EDT Infusion Hematology Oncology at [address] [phone] 11/14/2023 9:30 AM EDT Office Visit Hematology/Oncology at [address] [phone] Adrianne Ramon MD [facility] HEMATOLOGY [place] [address] Yael Merlos FELLER OPERATOR [facility] HEMATOLOGY [place] [address] 11/14/2023 10:00 AM EDT Infusion Hematology Oncology at [address] [phone] documented as of this encounter Visit Diagnoses Not on filedocumented in this encounter Care Teams Electric Pile Driver Operator Relationship Specialty Start Date End Date Frederick Meade MD [address] [place] [address] PCP - General Family Medicine 11/29/17 documented as of this encounter
--- OUTSIDE RECORDS SUMMARY | 2023-10-11 03:42 | XMS_ITS | Encounter Summary ---
[place] [address] Care Team Providers Care Contracting Manager Name Role Phone Bobby Headley MD Primary Care Provider Encounter Details Date Type Department Care Team (Late Contact Info) Description 10/21/2014 Telephone Radiation Oncology at [address] [phone] Nitin Stauffer MD [address] [place] [address] RADIATION ONCOLOGY [place], [place] [id number] Social History Tobacco Use Types Packs/Day Years [...] AM EDT Infusion Hematology Oncology at [address] [phone] 10/17/2023 1:00 PM EDT TH Visit (TeleHealth) Hematology/Oncology at [address] [phone] Adrianne Ramon MD [facility] HEMATOLOGY [place] [address] Yael Merlos [facility] HEMATOLOGY [place] [address] 10/17/2023 1:30 PM EDT Infusion Hematology Oncology at [address] [address] 11/14/2023 9:30 AM EDT Office Visit Hematology/Oncology at [address] [phone] Adrianne Ramon MD [facility] HEMATOLOGY [place] [address] Yael Merlos, [facility] HEMATOLOGY [place] [address] 11/14/2023 10:00 AM EDT Infusion Hematology Oncology at [address] [phone] documented as of this encounter Visit Diagnoses Not on filedocumented in this encounter Care Teams Contracting Manager Relationship Specialty Start Date End Date Bobby Headley MD [address] [place] [address] PCP - General 01/29/14 11/28/17 documented as of this encounter
--- OUTSIDE RECORDS SUMMARY | 2023-10-11 03:42 | XMS_ITS | Encounter Summary ---
[place] [address] Care Team Providers Care Advanced Solutions Architect Name Role Phone Bobby Headley MD Primary Care Provider [phone] Encounter Details Date Type Department Care Team (Late st Contact Info) Description 10/15/2014 Telephone Radiation Oncology at [address] [phone] Christine Garcia RN Social History [...] Post-Procedure Phone Note Name: Cheo Freire A#: [id number] : 1950 Date/Time of Call: 10/15/2014 6:10 [...] YES NO x Comments/interventions: Section Radiation Oncology [facility] documented in this encounter Plan of Treatment Upcoming Encounters Date Type Department Care Team (Late st Contact Info) Description 10/11/2023 8:30 AM EDT Infusion Hematology Oncology at [address] [address] 10/17/2023 1:00 PM EDT TH Visit (TeleHealth) Hematology/Oncology at [address] [address] dArianne Ramon MD [facility] HEMATOLOGY [place] [address] Yael Merlos APRN [facility] HEMATOLOGY [place] [address] 10/17/2023 1:30 PM EDT Infusion Hematology Oncology at [address] [address] 11/14/2023 9:30 AM EDT Office Visit Hematology/Oncology at [address] [phone] Adrianne Ramon MD [facility] HEMATOLOGY [place] [address] Yael Merlos APRN [facility] HEMATOLOGY [place] [address] 11/14/2023 10:00 AM EDT Infusion Hematology Oncology at [address] [phone] documented as of this encounter Visit Diagnoses Not on filedocumented in this encounter Care Teams Advanced Solutions Architect Relationship Specialty Start Date End Date Bobby Headley MD [address] [place] [address] PCP - General 01/29/14 11/28/17 documented as of this encounter
--- OUTSIDE RECORDS SUMMARY | 2023-10-11 03:42 | XMS_ITS | Encounter Summary ---
[place] [address] Care Team Providers Care Fire Tower Keeper Name Role Phone Bobby Headley MD Primary Care Provider [phone] Encounter Details Date Type Department Care Team (Late st Contact Info) Description 10/21/2014 11:00 AM EDT Ancillary Appointment Radiation Oncology at [address] [phone] Nitin Stauffer MD [address] [place] [address] DR RADIATION ONCOLOGY [place], [place] [id number] Social History Tobacco Use Types Packs/Day Years [...] do to help manage the side effects. Pulp Drier - They take the doctors radiation prescription [...] a well balanced diet is recommended. The clamp jig assembler and nurse will inform you of any [...] - Sunday 8 AM to 5 PM [facility] phone# [phone] [facility] If you have questions about your radiation [...] in injury A Radiation Oncology doctor is motion picture scene builder after our normal hours and on weekends. To call for urgent medical issues from radiation treatments that can not wait until normal business hours, please call for either location and have the blanking machine operator page the Radiation Oncologist in call. documented in this encounter Progress Notes * Nitin Stauffer MD - 10/21/2014 11:16 AM EDT Simulation Note for External Beam Radiation Treatment Planning [facility] Bolivar Freire is a 64 y.o. year [...] of any short term side effects or usp complications of therapy. I anticipate his prescription [...] AM EDT Infusion Hematology Oncology at [address] [phone] 10/17/2023 1:00 PM EDT TH Visit (TeleHealth) Hematology/Oncology at [address] [phone] Adrianne Ramon MD [facility] DR [place] [address] Yael Merlos APRN [facility] [place] [address] 10/17/2023 1:30 PM EDT Infusion Hematology Oncology at [address] [phone] 11/14/2023 9:30 AM EDT Office Visit Hematology/Oncology at [address] [phone] Adrianne Ramon MD [facility] DR [place] [address] Yael Merlos APRN [facility] [place] [address] 11/14/2023 10:00 AM EDT Infusion Hematology Oncology at [address] [phone] documented as of this encounter Visit Diagnoses Not on filedocumented in this encounter Care Teams Fire Tower Keeper Relationship Specialty Start Date End Date Bobby Headley MD [address] [place] [address] PCP - General 01/29/14 11/28/17 documented as of this encounter
--- OUTSIDE RECORDS SUMMARY | 2023-10-11 03:42 | XMS_ITS | Encounter Summary ---
Author Organization [facility] [address] Care Team Providers Care Human Resources Manager Name Role Phone Bobby Headley MD Primary Care Provider [phone] Encounter Details Date Type Department Care Team (Late st Contact Info) Description 03/01/2016 11:00 AM EST Office Visit Hematology/Oncology at [address] [phone] Annika Quezada APRN [facility] [place] [address] Prostate cancer Social History Tobacco Use Types [...] elevated at 5.4 with only 9% free. [place] with Dr. Vergara July 2014 who offered biopsy which was performed 09/01/14, demonstrating Gleason4 + 3 disease in a single core at the right apex. Forty-five percent of that core did appear to be involved. Perineural invasion was not seen. Pathology had been reviewed here at [facility]. 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 [...] to their sporting events. He went to [place] in September to attend a [employer] tournament and had a great time. He [...] AM EDT Infusion Hematology Oncology at [address] [phone] 10/17/2023 1:00 PM EDT TH Visit (TeleHealth) Hematology/Oncology at [address] [phone] Adrianne Ramon MD [facility] DR HEMATOLOGY [place] [address] aYel Merlos APRN [facility] HEMATOLOGY [place] [address] 10/17/2023 1:30 PM EDT Infusion Hematology Oncology at [address] [address] 11/14/2023 9:30 AM EDT Office Visit Hematology/Oncology at [address] [phone] Adrianne Ramon MD [facility] DR HEMATOLOGY [place] [address] Yael Merlos APRN [facility] HEMATOLOGY [place] [address] 11/14/2023 10:00 AM EDT Infusion Hematology Oncology at [address] [phone] documented as of this encounter Visit Diagnoses Diagnosis Prostate cancer Malignant neoplasm of prostate documented in this encounter Care Teams Human Resources Manager Relationship Specialty Start Date End Date Bobby Headley MD [address] [place] [address] PCP - General 01/29/14 11/28/17 documented as of this encounter
--- OUTSIDE RECORDS SUMMARY | 2023-10-11 03:42 | XMS_ITS | Encounter Summary ---
[place] [address] Care Team Providers Care Embryology Teacher Name Role Phone Bobby Headley MD Primary Care Provider [phone] Encounter Details Date Type Department Care Team (Late st Contact Info) Description 12/14/2016 3:45 PM EDT Office Visit Hematology/Oncology at [address] [phone] Nancy Stratton, DIRECTOR FEDERAL [address] [facility] [place] [address] Malignant neoplasm of prostate Social History Tobacco [...] this encounter Progress Notes * Nancy Stratton, DIRECTOR FEDERAL - 12/14/2016 3:45 PM EDT Images from [...] offered biopsy which was performed 09/01/14, demonstrating [place] 4 + 3 disease in a single core at the right apex. Forty-five percent of that core did appear to be involved.Perineural invasion was not seen. Pathology had been reviewed here at [facility]. 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 [...] to their sporting events. He went to [place] last September to attend a [employer] andhad a great time. He feels he [...] prostate cancer with pretreatment PSA of 5.4 [place] 4+3=7. He was treated with external [...] concerns in the interim. Nancy Stratton, MSN, FINANCIAL AID COUNSELOR, AOCN Hematology/Oncology Nurse Practitioner [place], [place] [phone] . documented in this encounter Plan of Treatment Upcoming Encounters Date Type Department Care Team (Late st Contact Info) Description 10/11/2023 8:30 AM EDT Infusion Hematology Oncology at [address] [address] 10/17/2023 1:00 PM EDT TH Visit (TeleHealth) Hematology/Oncology at [address] [phone] Adrianne Ramon MD [facility] HEMATOLOGY [place] [address] Yael Merlos APRN [facility] HEMATOLOGY [place] [address] 10/17/2023 1:30 PM EDT Infusion Hematology Oncology at [address] [phone] 11/14/2023 9:30 AM EDT Office Visit Hematology/Oncology at [address] [phone] Adrianne Ramon MD [facility] DR HEMATOLOGY [place] [address] Yael Merlos APRN [facility] HEMATOLOGY [place] [address] 11/14/2023 10:00 AM EDT Infusion Hematology Oncology at [address] [phone] documented as of this encounter Visit Diagnoses Diagnosis Malignant neoplasm of prostate documented in this encounter Care Teams Embryology Teacher Relationship Specialty Start Date End Date Bobby Headley MD [address] [place] [address] PCP - General 01/29/14 11/28/17 documented as of this encounter
--- OUTSIDE RECORDS SUMMARY | 2023-10-11 03:42 | XMS_ITS | Encounter Summary ---
Author Organization [facility] [place] [address] Care Team Providers Care Bilingual Inside Sales Representative Name Role Phone Frederick Meade MD Primary Care Provider [phone] Encounter Details Date Type Department Care Team (Late st Contact Info) Description 10/10/2022 Orders Only Hematology [place] [address] Adrianne Ramon MD [facility] DR H[place]AT[place] [address] Non-Hodgkin lymphoma of lymph nodes of multiple [...] AM EDT Infusion Hematology Oncology at [address] [address] 10/17/2023 1:00 PM EDT TH Visit (TeleHealth) Hematology/Oncology at [address] [phone] Adrianne Ramon MD [facility] H[place]ATOLOG[place] [address] Yael Merlos, GROUND DEFENCE OFFICER [facility] [place] [address] 10/17/2023 1:30 PM EDT Infusion Hematology Oncology at [address] [phone] 11/14/2023 9:30 AM EDT Office Visit Hematology/Oncology at [address] [phone] Adrianne Ramon MD [facility] [place] [address] Yael Merlos APRN [facility] DR [place] [address] 11/14/2023 10:00 AM EDT Infusion Hematology Oncology at [address] [phone] documented as of this encounter Visit Diagnoses Diagnosis Non-Hodgkin lymphoma of lymph nodes of multiple regions, unspecified non-Hodgkin lymphoma type documented in this encounter Care Teams Bilingual Inside Sales Representative Relationship Specialty Start Date End Date Frederick Meade MD [address] [place] [address] [address] [place], [place] [address] PCP - General Family Medicine 11/29/17 documented as of this encounter
--- OUTSIDE RECORDS SUMMARY | 2023-10-11 03:42 | XMS_ITS | Encounter Summary ---
[place] [address] Care Team Providers Care Cloth Folder Hand Name Role Phone Bobby Headley MD Primary Care Provider [phone] Encounter Details Date Type Department Care Team (Late st Contact Info) Description 12/02/2014 Notes Only Radiation Oncology at [address] [phone] Shelley Cason MSW OFFICE OF CARE MANAGEMENT [...] Resources: Pt agreeable to participate in the [place] [facility]. Provided him with a brochure and will make outreach to Arlyn Gong RN, Chronic Transfer And Pumphouse Operator Chief, [facility]. Adjustment to Illness/Mental Health Issues: Pt [...] AM EDT Infusion Hematology Oncology at [address] [address] 10/17/2023 1:00 PM EDT TH Visit (TeleHealth) Hematology/Oncology at [address] [address] Adrianne Ramon MD [facility] [place] [address] Yael Merlos APRN [facility] DR FR[place] [address] 10/17/2023 1:30 PM EDT Infusion Hematology Oncology at [address] [address] 11/14/2023 9:30 AM EDT Office Visit Hematology/Oncology at [address] [address] Adrianne Ramon MD [facility] HEMATOLOGY [place] [address] Yael Merlos APRN [facility] HEMATOLOGY [place] [address] 11/14/2023 10:00 AM EDT Infusion Hematology Oncology at [address] [phone] documented as of this encounter Visit Diagnoses Not on filedocumented in this encounter Care Teams Cloth Folder Hand Relationship Specialty Start Date End Date Bobby Headley MD [address] [place] [address] PCP - General 01/29/14 11/28/17 documented as of this encounter
--- OUTSIDE RECORDS SUMMARY | 2023-10-11 03:42 | XMS_ITS | Encounter Summary ---
[place] [address] Care Team Providers Care Base Loader Name Role Phone Bobby Headley MD Primary Care Provider [phone] Encounter Details Date Type Department Care Team (Late st Contact Info) Description 11/26/2014 9:00 AM EDT Office Visit Radiation Oncology at [address] [phone] Nitin Stauffer MD [address] [place] [place] [address] DR RADIATION ONCOLOGY [place], [place] [id number] Cancer of prostate with intermediate recurrence risk [...] Uncontrollable bleeding A Radiation Oncology doctor is guest relations manager after our normal hours and on weekends. To call for urgent medical issues from radiation treatments that can not wait until normal business hours, please call and have the tag press operator page the Radiation Oncologist guest relations manager. Nitin Ramirez MD documented in this encounter Progress Notes * Nitin Stauffer MD - 11/26/2014 11:16 AM EDT [facility] [...] AM EDT Infusion Hematology Oncology at [address] [phone] 10/17/2023 1:00 PM EDT TH Visit (TeleHealth) Hematology/Oncology at [address] [address] Adrianne Ramon MD [facility] [place] [address] Yael Merlos APRN [facility] [place] [address] 10/17/2023 1:30 PM EDT Infusion Hematology Oncology at [address] [phone] 11/14/2023 9:30 AM EDT Office Visit Hematology/Oncology at [address] [phone] Adrianne Ramon MD [facility] DR [place] [address] Yael Merlos APRN [facility] [place] [address] 11/14/2023 10:00 AM EDT Infusion Hematology Oncology at [address] [phone] documented as of this encounter Visit Diagnoses Diagnosis Cancer of prostate with intermediate recurrence risk (stage T2b-c or [place] 7 or PSA 10-20) Malignant neoplasm of prostate documented in this encounter Care Teams Base Loader Relationship Specialty Start Date End Date Bobby Headley MD [address] [place] [address] PCP - General 01/29/14 11/28/17 documented as of this encounter
--- OUTSIDE RECORDS SUMMARY | 2023-10-11 03:43 | XMS_ITS | Encounter Summary ---
Author Organization [facility] Address [facility] [place] [address] Care Team Providers Care B2B Sales Professional Name Role Phone Bobby Headley MD Primary Care Provider [phone] Encounter Details Date Type Department Care Team (Late Contact Info) Description 09/30/2014 Orders Only Radiation Oncology at [address] [phone] Nitin Stauffer MD [address] [place] [address] DR RADIATION ONCOLOGY [place], [place] [id number] Social History Tobacco Use Types Packs/Day Years [...] AM EDT Infusion Hematology Oncology at [address] [phone] 10/17/2023 1:00 PM EDT TH Visit (TeleHealth) Hematology/Oncology at [address] [phone] Adrianne Ramon MD [facility] DR [place] [address] Yael Merlos, [facility] [place] [address] 10/17/2023 1:30 PM EDT Infusion Hematology Oncology at [address] [phone] 11/14/2023 9:30 AM EDT Office Visit Hematology/Oncology at [address] [phone] Adrianne Ramon MD [facility] [place] [address] Yael Merlos [facility] [place] [address] 11/14/2023 10:00 AM EDT Infusion Hematology Oncology at [address] [phone] documented as of this encounter Visit Diagnoses Not on filedocumented in this encounter Care Teams B2B Sales Professional Relationship Specialty Start Date End Date Bobby Headley MD [address] [place] [address] PCP - General 01/29/14 11/28/17 documented as of this encounter
--- OUTSIDE RECORDS SUMMARY | 2023-10-11 03:43 | XMS_ITS | Encounter Summary ---
Author Organization [facility] Address [facility] [place] [address] Care Team Providers Care Laborer Tanbark Name Role Phone Bobby Headley MD Primary Care Provider [phone] Reason for Visit * Reason Comments Prostate Cancer Lupron 22.5 mg into left buttocks Encounter Details Date Type Department Care Team (Late st Contact Info) Description 09/29/2014 1:00 PM EDT Infusion Hematology Oncology at [address] [phone] CLINIC, DR [facility] HEM/ONC William German MD [facility] DR [place] [address] Malignant neoplasm of prostate Discharge Disposition: Home [...] AM EDT Infusion Hematology Oncology at [address] [phone] 10/17/2023 1:00 PM EDT TH Visit (TeleHealth) Hematology/Oncology at [address] [phone] Adrianne Ramon MD [facility] [place] [address] Yael Merlos [facility] HEMATOLOGY AND [place] [address] 10/17/2023 1:30 PM EDT Infusion Hematology Oncology at [address] [phone] 11/14/2023 9:30 AM EDT Office Visit Hematology/Oncology at [address] [phone] Adrianne Ramon MD [facility] [place] [address] Yael Merlos [facility] [place] [address] 11/14/2023 10:00 AM EDT Infusion Hematology Oncology at [address] [phone] documented as of this encounter Visit Diagnoses [...] Gluteal documented in this encounter Care Teams Laborer Tanbark Relationship Specialty Start Date End Date Bobby Headley MD [address] [place] [address] PCP - General 01/29/14 11/28/17 documented as of this encounter
--- OUTSIDE RECORDS SUMMARY | 2023-10-11 03:43 | XMS_ITS | Encounter Summary ---
Author Organization [facility] [place] [address] Care Team Providers Care Clay Carman Name Role Phone Bobby Headley MD Primary Care Provider [phone] Encounter Details Date Type Department Care Team (Late st Contact Info) Description 09/01/2014 [place] [address] Micha Nunez MD [facility] [place] [address] Social History Tobacco Use Types Packs/Day Years [...] AM EDT Infusion Hematology Oncology at [address] [phone] 10/17/2023 1:00 PM EDT TH Visit (TeleHealth) Hematology/Oncology at [address] [phone] Adrianne Ramon MD [facility] DR HEMATOLOGY [place] [address] Yael Merlos, JEWEL SETTER [facility] HEMATOLOGY [place] [address] 10/17/2023 1:30 PM EDT Infusion Hematology Oncology at [address] [phone] 11/14/2023 9:30 AM EDT Office Visit Hematology/Oncology at [address] [phone] Adrianne Ramon MD [facility] HEMATOLOGY [place] [address] Yael Merlos APRN [facility] HEMATOLOGY [place] [address] 11/14/2023 10:00 AM EDT Infusion Hematology Oncology at [address] [phone] documented as of this encounter Procedures Procedure [...] on filedocumented in this encounter Care Teams Clay Carman Relationship Specialty Start Date End Date Bobby Headley MD [address] [place] [address] PCP - General 01/29/14 11/28/17 documented as of this encounter
--- OUTSIDE RECORDS SUMMARY | 2023-10-11 03:43 | XMS_ITS | Encounter Summary ---
Author Organization Pending [facility] [place] [address] Care Team Providers Care Air Purifier Servicer Name Role Phone Bobby Headley MD Primary Care Provider [phone] Encounter Details Date Type Department Care Team (Late st Contact Info) Description 09/25/2014 External [place] [phone] Provider, Scanning Social History Tobacco Use Types [...] AM EDT Infusion Hematology Oncology at [address] [phone] 10/17/2023 1:00 PM EDT TH Visit (TeleHealth) Hematology/Oncology at [address] [phone] Adrianne Ramon MD [facility] DR [place] [address] Yael Merlos, BIT SHAVER [facility] [place] [address] 10/17/2023 1:30 PM EDT Infusion Hematology Oncology at [address] [phone] 11/14/2023 9:30 AM EDT Office Visit Hematology/Oncology at [address] [phone] Adrianne Ramon MD [facility] [place] [address] Yael Merlos APRN [facility] [place] [address] 11/14/2023 10:00 AM EDT Infusion Hematology Oncology at [address] [phone] documented as of this encounter Procedures Procedure Name Priority Date/Time Associated Diagnosis Comments SURGICAL PATHOLOGY SCAN Routine 09/25/2014 documented in this encounter Results * Scan Doc: Surgical Pathology (09/25/2014) John Vergara MD MEDIA MGR SCAN EXT O RDR/RSLT documented in this encounter Visit Diagnoses Not on filedocumented in this encounter Care Teams Air Purifier Servicer Relationship Specialty Start Date End Date Bobby Headley MD [address] [place] [address] PCP - General 01/29/14 11/28/17 documented as of this encounter
--- OUTSIDE RECORDS SUMMARY | 2023-10-11 03:43 | XMS_ITS | Encounter Summary ---
Author Organization [facility] [place] [address] Care Team Providers Care Bread Dumper Name Role Phone Bobby Headley MD Primary Care Provider [phone] Encounter Details Date Type Department Care Team (Late st Contact Info) Description 03/04/2014 4:07 PM EST - 03/04/2014 11:59 PM EST Hospital En[place] [phone] Testis mass Social History Tobacco Use Types [...] AM EDT Infusion Hematology Oncology at [address] [phone] 10/17/2023 1:00 PM EDT TH Visit (TeleHealth) Hematology/Oncology at [address] [phone] Adrianne Ramon MD [facility] HEMATOLOGY [place] [address] Yael Merlos, [facility] HEMATOLOGY [place] [address] 10/17/2023 1:30 PM EDT Infusion Hematology Oncology at [address] [phone] 11/14/2023 9:30 AM EDT Office Visit Hematology/Oncology at [address] [phone] Adrianne Ramon MD [facility] DR [place] [address] Yael Merlos [facility] [place] [address] 11/14/2023 10:00 AM EDT Infusion Hematology Oncology at [address] [phone] documented as of this encounter Procedures Procedure Name Priority Date/Time Associated Diagnosis Comments US SCROTUM Routine 03/04/2014 4:46 PM EST Testis mass documented in this encounter Results * US scrotum (03/04/2014 4:46 PM EST) Anatomical Region Laterality Modality Pelvis Ultrasound 03/04/2014 4:46 PM EST Narrative 03/04/2014 5:00 PM EST Scrotal ?(Signed Final 03/04/2014 05:00 ? pm) Patient Info ID #: ? [id number] ?: ??[birth year] (63 yrs) Name: ? CHEO MORFIN ? Visit Date: 03/04/2014 04:39 pm Performed By Performed By: ?Hannah Wahl RDMS Attending: ? Alexandre OCASIO, Jaime Dumas Referred By: ? LANDRY LUNSFORD MD Service(s) Provided ??[facility] - Ultrasound Scrotum and Contents with ?[id number], [id number] ??Vascular - [id number], [id number] Indications ??Evaluate Right testicle hx of testis [...] 03/04/2014 05:00 pm) Patient Info ID #: [id number] : [birth year] (63 yrs) Name: CHEO MORFIN Visit Date: 03/04/2014 04:39 pm Performed By Performed By: Hannah Wahl RDMS Attending: Jaime Schroeder MD Referred By: LANDRY LUNSFORD MD Service(s) Provided [facility] - Ultrasound Scrotum and Contents with [id number], 26710 Vascular - [id number], [id number] Indications Evaluate Right testicle hx of testis [...] Report 03/04/2014 05:00 pm Landry Lunsford MD IMG US GEN ORDERABLE S documented in this encounter Visit Diagnoses Diagnosis Testis mass Other specified disorder of male genital organs documented in this encounter Care Teams Bread Dumper Relationship Specialty Start Date End Date Bobby Headley MD [address] [place] [address] PCP - General 01/29/14 11/28/17 documented as of this encounter
--- OUTSIDE RECORDS SUMMARY | 2023-10-11 03:43 | XMS_ITS | Encounter Summary ---
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 The patient has been [...] notable for a small left testicle ~ [id number]. There is a tiny firm area palpable [...] AM EDT Infusion Hematology Oncology at [address] [phone] 10/17/2023 1:00 PM EDT TH Visit (TeleHealth) Hematology/Oncology at [address] [phone] Adrianne Ramon MD [facility] HEMATOLOGY [place] [address] Yael Merlos, [facility] HEMATOLOGY [place] [address] 10/17/2023 1:30 PM EDT Infusion Hematology Oncology at [address] [phone] 11/14/2023 9:30 AM EDT Office Visit Hematology/Oncology at [address] [phone] Adrianne Ramon MD [facility] HEMATOLOGY [place] [address] Yael Merlos, [facility] HEMATOLOGY [place] [address] 11/14/2023 10:00 AM EDT Infusion Hematology Oncology at [address] [phone] documented as of this encounter Procedures Procedure [...] ? pm) Patient Info ID #: ? [id number] ?: ??[birth year] (63 yrs) Name: ? CHEO FREIRE ? Visit Date: 03/04/2014 04:39 pm Performed By Performed By: ?Hannah Wahl RDMS Attending: ? Alexandre OCASIO, Jaime Dumas Referred By: ? LANDRY LUNSFORD MD Service(s) Provided ??[facility] - Ultrasound Scrotum and Contents with ?[id number], [id number] ??Vascular - [id number], [id number] Indications ??Evaluate Right testicle hx of testis [...] 03/04/2014 05:00 pm) Patient Info ID #: [id number] : [birth year] (63 yrs) Name: CHEO FREIRE Visit Date: 03/04/2014 04:39 pm Performed By Performed By: Hannah Wahl RDMS Attending: Jaime Schroeder MD Referred By: LANDRY LUNSFORD MD Service(s) Provided [facility] - Ultrasound Scrotum and Contents with [id number], 32052 Vascular - [id number], [id number] Indications Evaluate Right testicle hx of testis [...] Lunsford MD IMG US GEN ORDERABLE S * [...] MD HEMATOLOGY ORDERABLE S Performing Organization Address City/[facility] Co de Phone Number PHILLIP LEEENNIUM * (ABNORMAL) Hemogram (03/04/2014 4:03 [...] Lab Landry Lunsford MD HEMATOLOGY ORDERABLE S CERWISAM FAJARDOIUM * AFP tumor marker (03/04/2014 4:03 PM EST) Alpha Fetoprotein 2.3 <=8.3 ng/mL PHILLIP MAURER Blood specimen (specimen) 03/04/2014 4:03 PM EST 03/04/2014 4:07 PM EST Narrative Resulting Agency Comment Spec In Lab Landry Lunsford MD CHEMISTRY ORDERABLES PHILLIP MAURER * Beta HCG, quantitative (03/04/2014 4:03 PM EST) Beta Human Chorionic Gonadotropin, Quantitative <1 0 - 2 mlU/ML [facility] Comment: REFERENCE RANGES NON- FEMALE: ??Less than [...] - 56,451 ?17 weeks ? 8,175 - 05,868 ?18 weeks ? 8,055 - 84,176 Blood specimen (specimen) 03/04/2014 4:03 PM EST 03/04/2014 4:07 PM EST Narrative Resulting Agency Comment Spec In Lab Landry Lunsford MD CHEMISTRY ORDERABLES CERNER MILLENNIUM documented in this encounter Visit Diagnoses Diagnosis Testis mass Other specified disorder of male genital organs Testis cancer, right Testis mass Other specified disorder of male genital organs documented in this encounter Care Teams Heel Wheeler Relationship Specialty Start Date End Date Bobby Headley MD [address] [place] [address] PCP - General 01/29/14 11/28/17 documented as of this encounter
--- OUTSIDE RECORDS SUMMARY | 2023-10-11 03:43 | XMS_ITS | Encounter Summary ---
[place] [address] Care Team Providers Care Foreign Law Consultant Name Role Phone Bobby Headley MD Primary Care Provider [phone] Encounter Details Date Type Department Care Team (Late st Contact Info) Description 09/29/2014 12:00 PM EDT Office Visit Radiation Oncology at [address] [phone] Nitin Stauffer MD [address] [place] [address] DR RADIATION ONCOLOGY [place], [place] [phone] Cancer of prostate with intermediate recurrence risk [...] slowed by medications such as Viagra. Another long distance billing operator but potentially serious side effect is the [...] a prostate MRI which we do at [facility], that allows us to better see [...] [facility] simulation scan here in our [facility] clinic, typically 1-2 weeks after the [...] do not hesitate to call me at [phone] with any other questions or concerns you have. Although our normal business hours are M-F 8AM-5PM, I am on- site here in [facility] Wednesdays through Fridays. On Mondays and Tuesdays, your nurse Christine Fernando will be here and can answer any questionsyou might have, or help you get in touch with me. A Radiation Oncology doctor is also cotton ginner helper after our normal hours and on weekends for urgent questions or concerns related to radiation treatments that can not wait until normal business hours. To reach the on-call doctor after-hours, just call and have the label press operator page the Radiation Oncologist cotton ginner helper. And, as always, if you experience any [...] injury 7. Uncontrollable bleeding Nitin Ramirez MD Buyer Liaisonhospital television rental clerk Radiation Oncology [facility] documented in this encounter Progress Notes * Nitin Stauffer MD - 09/29/2014 12:00 PM EDT Radiation Oncology New Patient Consultation [facility] Reason for Consultation: intermediate risk prostate cancer [...] offered biopsy which was performed 09/01/14, demonstrating [place] 4 + 3 disease in a single core at the right apex. Forty-five percent of that core did appear to be involved. Perineural invasion was not seen. Pathology had been reviewed here at [facility]. 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 Estimated travel time by the patient to [facility] is 10 minutes, one-way. KPS: 100 [...] with either Dr. Nunezor Dr. Stubbs at [facility]. However, he was quite clear that the potential side effects of urinary incontinence or erectile dysfunction are completely unacceptable to him. Given the primary [place] 4 disease, I discussed the utility of [...] yes ADVANCED DIRECTIVE: yes, on file at [facility]) PAIN ASSESSMENT: [0] out of 10 [...] AM EDT Infusion Hematology Oncology at [address] [phone] 10/17/2023 1:00 PM EDT TH Visit (TeleHealth) Hematology/Oncology at [address] [phone] Adrianne Ramon MD [facility] HEMATOLOGY [place] [address] Yael Merlos APRN [facility] HEMATOLOGY [place] [address] 10/17/2023 1:30 PM EDT Infusion Hematology Oncology at [address] [phone] 11/14/2023 9:30 AM EDT Office Visit Hematology/Oncology at [address] [phone] Adrianne Ramon MD [facility] HEMATOLOGY [place] [address] Yael Merlos APRN [facility] DR HEMATOLOGY [place] [address] 11/14/2023 10:00 AM EDT Infusion Hematology Oncology at [address] [phone] documented as of this encounter Procedures Procedure Name Priority Date/Time Associated Diagnosis Comments CHEMOTHERAPY SCAN 09/29/2014 12:00 AM EDT documented in this encounter Results * SCAN DOC: CHEMOTHERAPY (09/29/2014 12:00 AM EDT) Scanning Provider MEDIA MGR SCAN EXT O RDR/RSLT documented in this encounter Visit Diagnoses Diagnosis Cancer of prostate with intermediate recurrence risk (stage T2b-c or [place] 7 or PSA 10-20) Malignant neoplasm of prostate documented in this encounter Care Teams Foreign Law Consultant Relationship Specialty Start Date End Date Bobby Headley MD [address] [place] [address] PCP - General 01/29/14 11/28/17 documented as of this encounter
--- OUTSIDE RECORDS SUMMARY | 2023-10-11 03:43 | XMS_ITS | Encounter Summary ---
Author Organization [facility] [place] [address] Care Team Providers Care Events Associate Name Role Phone Bobby Headley MD Primary Care Provider [phone] Encounter Details Date Type Department Care Team (Latest Contact Info) Description 10/05/2014 Unscheduled Encounter Radiation Oncology at [address] [phone] Christine Garcia, RN Malignant neoplasm [...] Prescriptions to get filled and things to flower picker from the pharmacy: [employer] [...] relax for the procedure.You will need a driver courier to take you home. ??? Change into [...] any other concerns. Future Appointments: MRI at [facility]: 10/19 at 11:10 AM arrive at : Your CT simulation, planning session will be done at [facility]. 10/21 arrive at 10:30. You will see the nurse first for patient education .You will need a comfortably full bladder by 11:00 How to reach us: Radiation Oncology [facility] [place] [address] fax After office hours phone: [phone] - ask for radiation oncology doctor senior business consultant Radiation Oncology [address] [address] documented in this encounter Progress Notes * Christine Fernando RN - 10/05/2014 2:22 PM EDT Radiation Oncology Nurse Note [place], [place] See AVS for instructions provided to patient and his in preparation for Gold transformer maker implant procedure scheduled for Sun10/14/14. Prescriptions for Cipro and Dexamethasone sent to [facility]. documented in this encounter Plan of Treatment Upcoming Encounters Date Type Department Care Team (Late st Contact Info) Description 10/11/2023 8:30 AM EDT Infusion Hematology Oncology at [address] [phone] 10/17/2023 1:00 PM EDT TH Visit (TeleHealth) Hematology/Oncology at [address] [phone] Adrianne Ramon MD [facility] HEMATOLOGY [place] [address] Yael Merlos, KARLA [facility] [place]EMATOLOGY [place] [address] 10/17/2023 1:30 PM EDT Infusion Hematology Oncology at [address] [phone] 11/14/2023 9:30 AM EDT Office Visit Hematology/Oncology at [address] [phone] Adrianne Ramon MD [facility] DR [place] [address] Yael Merlos APRN [facility] DR [place] [address] 11/14/2023 10:00 AM EDT Infusion Hematology Oncology at [address] [phone] documented as of this encounter Visit Diagnoses Diagnosis Malignant neoplasm of prostate documented in this encounter Care Teams Events Associate Relationship Specialty Start Date End Date Bobby Headley MD [address] [place] [address] PCP - General 01/29/14 11/28/17 documented as of this encounter
--- OUTSIDE RECORDS SUMMARY | 2023-10-11 03:43 | XMS_ITS | Encounter Summary ---
Author Organization [facility] [place] [address] Care Team Providers Care Can Feeder Name Role Phone Bobby Headley MD Primary Care Provider [phone] Encounter Details Date Type Department Care Team (Late st Contact Info) Description 09/28/2014 Abstract Radiation Oncology at [address] [phone] Christine Garcia, RN Social History Tobacco Use [...] AM EDT Infusion Hematology Oncology at [address] [phone] 10/17/2023 1:00 PM EDT TH Visit (TeleHealth) Hematology/Oncology at [address] [phone] Adrianne Ramon MD [facility] HEMATOLOGY [place] [address] Yael Merlos, VARNISH MELTER HELPER [facility] HEMATOLOGY [place] [address] 10/17/2023 1:30 PM EDT Infusion Hematology Oncology at [address] [phone] 11/14/2023 9:30 AM EDT Office Visit Hematology/Oncology at [address] [phone] Adrianne Ramon MD [facility] HEMATOLOGY [place] [address] Yael Merlos APRN [facility] HEMATOLOGY [place] [address] 11/14/2023 10:00 AM EDT Infusion Hematology Oncology at [address] [phone] documented as of this encounter Visit Diagnoses Not on filedocumented in this encounter Care Teams Can Feeder Relationship Specialty Start Date End Date Bobby Headley MD [address] [place] [address] PCP - General 01/29/14 11/28/17 documented as of this encounter
--- OUTSIDE RECORDS SUMMARY | 2023-10-11 03:43 | XMS_ITS | Encounter Summary ---
Author Organization [facility] [place] [address] Care Team Providers Care Code Enforcement Officer Name Role Phone Bobby Headley MD Primary Care Provider Encounter Details Date Type Department Care Team (Late st Contact Info) Description 12/30/2013 Orders Only [place] [address] Micha Nunez MD [facility] [place] [address] Social History Tobacco Use Types Packs/Day Years [...] AM EDT Infusion Hematology Oncology at [address] [phone] 10/17/2023 1:00 PM EDT TH Visit (TeleHealth) Hematology/Oncology at [address] [phone] Adrianne Ramon MD [facility] DR HEMATOLOGY [place] [address] Yael Merlos, EDGE BANDER HAND [facility] HEMATOLOGY [place] [address] 10/17/2023 1:30 PM EDT Infusion Hematology Oncology at [address] [phone] 11/14/2023 9:30 AM EDT Office Visit Hematology/Oncology at [address] [phone] Adrianne Ramon MD [facility] HEMATOLOGY [place] [address] Yael Merlos APRN [facility] [place]EMATOLOGY [place] [address] 11/14/2023 10:00 AM EDT Infusion Hematology Oncology at [address] [phone] documented as of this encounter Procedures Procedure [...] on filedocumented in this encounter Care Teams Code Enforcement Officer Relationship Specialty Start Date End Date Bobby Headley MD [address] [place] [address] PCP - General 01/29/14 11/28/17 documented as of this encounter
--- OUTSIDE RECORDS SUMMARY | 2023-10-11 03:43 | XMS_ITS | Encounter Summary ---
[place] [address] Care Team Providers Care Tool Lapper Hand Name Role Phone Bobby Headley MD Primary Care Provider [phone] Encounter Details Date Type Department Care Team (Late st Contact Info) Description 09/24/2014 4:13 PM EDT - 09/24/2014 11:59 PM EDT Hospital En[place] [phone] Tk Vergara MD [address] [place] [address] Discharge Disposition: Home Social History Tobacco Use [...] AM EDT Infusion Hematology Oncology at [address] [phone] 10/17/2023 1:00 PM EDT TH Visit (TeleHealth) Hematology/Oncology at [address] [phone] Adrianne Ramon MD [facility] [place] [address] Yael Merlos, [facility] [place] [address] 10/17/2023 1:30 PM EDT Infusion Hematology Oncology at [address] [phone] 11/14/2023 9:30 AM EDT Office Visit Hematology/Oncology at [address] [phone] Adrianne Ramon MD [facility] [place] [address] Yael Merlos, [facility] [place] [address] 11/14/2023 10:00 AM EDT Infusion Hematology Oncology at [address] [phone] documented as of this encounter Procedures Procedure Name Priority Date/Time Associated Diagnosis Comments SURGICAL PATHOLOGY REPORT Routine 09/24/2014 10:06 AM EDT documented in this encounter Results * Surgical Pathology Report (09/24/2014 10:06 AM EDT) Final Diagnosis ? [facility] ? Provider: ?? TK VERGARA ?? Pt. Name: ?? CHEO MORFIN ? Acc #: ?[id number] ?Pt. ? Col Date: ?? 09/24/2014 ?/Sex: ?1950,(64 years),Male ? Rec Date: ?? 09/25/2014 ?LOC: ?OPW ? SURGICAL PATHOLOGY ? DIAGNOSIS ? CONSULTATION CASE ? Outside slides labeled [id number], collection date 09/01/2014 ? A - Prostatic [...] needle biopsy, right mid apex: ? Adenocarcinoma, Crawford grade 4+3, discontinuously involving ? approximately 45% [...] mid apex: ? Benign prostatic tissue. ? [facility] ? Provider: ?? TK VERGARA ?? Pt. Name: ?? CHEO MORFIN ? Acc #: ?[id number] ?Pt. ? Col Date: ?? 09/24/2014 ?/Sex: ?1950,(64 years),Male ? Rec Date: ?? 09/25/2014 ?LOC: ?OPW ? SURGICAL PATHOLOGY ? CR-0 ? 09/25/14 ? LLW ? 09/28/14 Verified by: ? Stacey OCASIO, Fletcher iJmenez ? Pathologist ? (Electronic Signature) ? The attending pathologist whose signature appears on this report has ? reviewed all diagnostic slides and has edited the gross and/or ? microscopic portion of the report in rendering the final pathologic ? diagnosis. ? ADDITIONAL STUDIES ? Slides reviewed, microscopic description not recorded. ? Whole slide scan: ?[id number]-10 ? GROSS DESCRIPTION ? [facility] ([facility]) pathology slide(s) are ? reviewed. ??Refer to Diagnosis and Specimen Submitted for specific case ? information. ? For the full text of the [facility] report(s) please refer to Non-DH ? Documentation Pathology in the electronic health record (eDH). ? CLINICAL INFORMATION ? Specimen Submitted: ? CONSULTATION CASE ? A - 20 slides labeled [id number], collection date 09/01/2014. ? [id number] ? Report to: ? [facility] ? Surgical Pathology Department ? [facility], [facility], 2nd Floor ? [address] ? [place], [place] ??[address] ? 09/28/2014 3:18 PM EDT [facility] Consult Case 09/24/2014 10:0 6 AM EDT 09/24/2014 10:06 AM EDT Tk Vergara MD PATHOLOGY/CYTOLOGY [facility] [place] [phone] documented in this encounter Visit Diagnoses Not on filedocumented in this encounter Care Teams Tool Lapper Hand Relationship Specialty Start Date End Date Bobby Headley MD [address] [place] [address] PCP - General 01/29/14 11/28/17 documented as of this encounter
[2023-10-11 07:49] LABS: Abs Immature Grans 0.04 10^3/uL (0.0-0.06); Absolute Basophil Count 0.01 10^3/uL (0.0-0.2); Absolute Eosinophil Count 0.39 10^3/uL (0.0-0.7); Absolute Lymphocyte Count 0.45 10^3/uL (1.2-3.4); Absolute Monocyte Count 0.48 10^3/uL (0.1-0.8); Absolute Neutrophil Count 2.53 10^3/uL (1.2-6.7); Basophils % 0.3 %; HCT 32.8 % (40.0-50.0); HGB 10.6 g/dL (13.5-17.5); Lymphocytes % 11.5 %; MCH 29.7 pg (27.0-33.0); MCHC 32.3 % (32.0-36.0); MCV 92 fL (80-95); MPV 10.2 fL (8.0-11.0); Monocytes % 12.3 %; Neutrophils % 64.9 %; RBC 3.57 10^6/uL (4.36-5.78); RDW 14.4 % (11.8-14.1); RDW-SD 48.8 fL
[2023-10-11 08:13] LABS: Diff Comment Diff Reviewed; Platelet Count 95 10^3/uL (130-400); RBC Morphology Normal
[2023-10-11 08:20] LABS: ALT 46 U/L (16-63); AST 26 U/L (15-37); Albumin 2.5 g/dL (3.4-5.0); Alkaline Phosphatase 104 U/L (46-116); Anion Gap 7.4 mmol/L (3-11); BUN 15 mg/dL (7-18); Bilirubin, Total 0.49 mg/dL (0.2-1.0); CO2 26.6 mmol/L (21.0-32.0); CREATININE 1.3 mg/dL (0.70-1.30); Calcium 8.4 mg/dL (8.5-10.1); Chloride 103 mmol/L (98-107); Estimated GFR 57.29 (mL/min/1.73m2); Ferritin 791 ng/mL (26-388); Glucose 171 mg/dL (74-106); Sodium 137 mmol/L (136-145); Total Protein 5.6 g/dL (6.4-8.2)
[2023-10-11 08:34] LABS: LDH 222 U/L (85-227)
== END 2023-10-11 03:36 | disposition home or self-care (01) ==
PROVIDERS: PCP Family Medicine; Visit Provider Nurse Practitioner Adult Health
DX: D50.9 Iron deficiency anemia, unspecified (principal); C83.38 Diffuse large B-cell lymphoma, lymph nodes of multiple sites; C85.98 Non-Hodgkin lymphoma, unspecified, lymph nodes of multiple sites
CPT/HCPCS: 36415; 80053; 82728; 83615; 85025

== ENCOUNTER 2023-10-17 03:22 | Outpatient (CLI) | payer MEDICARE, SELFPAY ==
--- OUTSIDE RECORDS SUMMARY | 2023-10-17 03:24 | XMS_ITS | Encounter Summary ---
Author Organization [facility] Address [address] [place] [address] Care Team Providers Care Bindery Machine Tender Name Role Phone Unavailable Primary Care Provider Unavailabl e Encounter Details Date Type Department Care Team (Late st Contact Info) Description 08/24/1999 Results Only [facility] conversion [address] [place] [address] Micha Pineda MD [address] [place] [phone] Social History Tobacco Use Types Packs/Day Years [...] ? CHEO MORFIN ? Accession #: ? [id number] ? : ? 1950 (Age: 49) ??M ? Collect Date: ? 08/24/1999 ? Location: ? [facility] ? Receive Date: ? 08/24/1999 ? Provider: RHYS PINEDA MD Copy to: MARY HEWITT MD ? Final Pathologic Diagnosis: ? Colon, left transverse (80 cm), biopsies: - Hyperplastic polyp. Document reviewed and electronically signed by: Tresa Waite [facility] Report ??Date: 08/26/1999 16:44 By the signature [...] MD PATHOLOGY ORDERABLES [facility] [address] [place] [address] documented in this encounter Visit Diagnoses Not on filedocumented in this encounter
--- OUTSIDE RECORDS SUMMARY | 2023-10-17 03:24 | XMS_ITS | Encounter Summary ---
Author Organization [facility] Address [address] [place] [address] Care Team Providers Care Machine Plate Stacker Name Role Phone Bobby Headley MD Primary Care Provider [phone] Encounter Details Date Type Department Care Team (Late st Contact Info) Description 10/06/2022 Lab Requisition [facility] Pathology & Laboratory Medicine - [facility] [address] [place] [address] Lg Ramírez MD [address] [place] [address] Generalized enlarged lymph nodes Social History [...] Name Priority Date/Time Associated Diagnosis Comments NON MOLD COOLER/FNA CYTOLOGY Today 10/05/2022 8:00 EDT Generalized enlarged lymph nodes documented in this encounter Results * NON MOLD COOLER/FNA CYTOLOGY (10/05/2022 8:00 EDT) Note to Patient The following pathology results have been interpreted by your pathologist and may be available to you before your health provider has had the opportunity to review them. Please allow time for your provider to receive these results and explore management options, if applicable. 10/09/2022 11:35 EDT [facility] Final Diagnosis A. LYMPH NODE, NECK, LATERALITY NOT SPECIFIED, ULTRASOUND-GUIDED FINE-NEEDLE ASPIRATION: - Mixed lymphoid population present, cannot exclude lymphoproliferative disorder. See comment. - Negative for metastatic carcinoma. 10/09/2022 11:35 [facility] Diagnosis Comment The specimen consists of a single thin prep slide with a mixed population lymphocytes. A lymphoproliferative disorder cannot be excluded based on this specimen alone. Correlation with the concurrent flow cytometry report ([id number]) and surgical biopsy specimen ([id number]) is essential. 10/09/2022 11:35 [facility] Attestation By the signature below, the attending physician certifies that they have personally conducted a gross and/or microscopic examination of the described specimens and rendered or confirmed the above diagnosis. 10/09/2022 11:35 [facility] at 1135 Clinical History Massive LAD; prostate cancer; R59.1 10/09/2022 11:35 [facility] Gross Description A. One vial of CytoLyt was received and processed by selective cellular enhancement technique. 10/09/2022 11:35 [facility] Performing Lab [facility] 10/09/2022 11:35 [facility] Scanned Images 10/09/2022 11:35 [facility] Fine Needle Aspirate ENTIRE LYMPH NODE / Unknown 10/05/2022 8:00 EDT 10/06/2022 6:21 EDT Lg Ramírez MD PATHOLOGY ORDERABLES [facility] [address] [place] [address] documented in this encounter Visit Diagnoses Diagnosis Generalized enlarged lymph nodes Enlargement of lymph nodes documented in this encounter Care Teams Machine Plate Stacker Relationship Specialty Start Date End Date Bobby Headley MD [address] [place] [address] [phone] PCP - General 01/18/12 documented as of this encounter
--- OUTSIDE RECORDS SUMMARY | 2023-10-17 03:24 | XMS_ITS | Encounter Summary ---
Author Organization [facility] Address [address] [place] [address] Care Team Providers Care Campaign Worker Name Role Phone Bobby Headley MD Primary Care Provider [phone] Encounter Details Date Type Department Care Team (Late st Contact Info) Description 10/06/2022 Lab Requisition [facility] Pathology & Laboratory Medicine - [address] [phone] Outr Resulting Lab, Provider Social History Tobacco [...] on filedocumented in this encounter Care Teams Campaign Worker Relationship Specialty Start Date End Date Bobby Headley MD [address] [place] [address] PCP - General 01/18/12 documented as of this encounter
--- OUTSIDE RECORDS SUMMARY | 2023-10-17 03:24 | XMS_ITS | Clinical Summary ---
Author Organization [facility] Address [address] [place] [address] Care Team Providers Care Wildlife Management Professor Name Role Phone Bobby Headley MD Primary Care Provider [phone] Encounters Date Type Department Care Team Description 10/03/2023 Lab Requisition [facility] Pathology & Laboratory [address] [address] Outr Resulting Lab, Provider 09/26/2023 Lab Requisition [facility] Pathology & Laboratory [address] [address] Outr Resulting Lab, Provider 09/19/2023 Lab Requisition [facility] Pathology & Laboratory [address] [address] Outr Resulting Lab, Provider from Last 3 [...] 610 - 1,616 mg/dL 10/04/2023 9:36 EDT [facility] IgA 92 85 - 499 mg/dL 10/04/2023 9:36 EDT [facility] IgM 118 35 - 242 mg/dL 10/04/2023 9:36 EDT [facility] Blood VENOUS BLOOD / Unknown 10/03/2023 9:10 EDT 10/03/2023 17:28 EDT Provider Outr Resulting Lab CHEMISTRY & BLOOD GAS ORDERABLES [facility] [address] [place] [address] from Last 3 Months Care Teams Wildlife Management Professor Relationship Specialty Start Date End Date Bobby Headley MD [address] [place] [phone] PCP - General 01/18/12
--- OUTSIDE RECORDS SUMMARY | 2023-10-17 03:24 | XMS_ITS | Encounter Summary ---
Author Organization [facility] Address [address] [place] [address] Care Team Providers Care Specimen Preparation Assistant Name Role Phone Bobby Headley MD Primary Care Provider [phone] Encounter Details Date Type Department Care Team (Late st Contact Info) Description 10/11/2022 Lab Requisition [facility] Pathology & Laboratory Medicine - [address] [address] Dedrick Quintanilla MD [address] [facility] Level [address] [place] [address] Encounter for other general examination [...] Caleb Lloyd SEE NOTE 10/16/2022 15:45 EDT [facility] Comment: Test ?Result ?Flag ??Unit ??RefValue [...] Slides, Formalin ??Source ?Tongue ?Tissue ID ? [id number] ?Method ?SEE NOTE ?Locus and probes ? [Strategy;#Nuclei;Class] ?8CEN(D8Z2),8q24.1(MYC),14q32(IGH) ?[DFISH;100;AM] ?8q24.1(5'MYC,3'MYC) ?[BAP;100;AM] ?Probe strategies include: ?DFISH=dual color, double fusion; ?BAP=break-apart probe. ?Scoring Method: Manual ?Probe vendors include: ?AM = [employer] ([place], [place]) ??Additional Information ?Not Reported ?Disclaimer ?SEE NOTE ?Applicable to Analyte Specific Reagent (ASR) and Laboratory ?Developed Tests (LDT). This test was developed and its ?performance characteristics determined by [facility] in a ?manner consistent with CLIA [...] ? Masha Padilla M.D. ?Test Performed by: ?[facility] ?[address] [place] [address] ?Online Community Manager: Jose David Lowry M.D. Ph.D.; CLIA# [id number] Tissue TISSUE SPECIMEN / Unknown 10/05/2022 8:00 EDT 10/11/2022 7:41 EDT Dedrick Quintanilla MD CHEMISTRY & BLOOD GA S ORDERABLES Performing Organization Address City/State/[facility] Co de Phone Number [facility] [address] [place] [address] documented in this encounter Visit Diagnoses Diagnosis Encounter for other general examination documented in this encounter Care Teams Specimen Preparation Assistant Relationship Specialty Start Date End Date Bobby Headley MD [address] [place] [id number] PCP - General 01/18/12 documented as of this encounter
--- OUTSIDE RECORDS SUMMARY | 2023-10-17 03:24 | XMS_ITS | Encounter Summary ---
Author Organization [facility] Address [address] [place] [address] Care Team Providers Care Media Specialist Name Role Phone Bobby Headley MD Primary Care Provider [phone] Encounter Details Date Type Department Care Team (Late st Contact Info) Description 10/06/2022 Lab Requisition [facility] Pathology & Laboratory Medicine - [facility] [address] [place] [address] Lg Ramírez MD [address] [place] [address] Generalized enlarged lymph nodes Social History [...] Diffuse Large B-Cell Lymphoma. 10/17/2022 13:09 EDT [facility] Addendum electronically signed by Dedrick Quintanilla MD on 10/17/2022 at 1309 Note to Patient The following pathology results have been interpreted by your pathologist and may be available to you before your health provider has had the opportunity to review them. Please allow time for your provider to receive these results and explore management options, if applicable. 10/17/2022 13:09 [facility] Final Diagnosis A. Tongue base, left: -Large B-cell lymphoma, incompletely classified. See comment. 10/17/2022 13:09 [facility] Diagnosis Comment The findings are those of a large B-cell lymphoma that exhibits a non-germinal center immunophenotype and expresses Myc and BCL-2 protein (Double Expressor.) Flow cytometry ([id number]) supports this interpretation. The differential classification of this lesion is diffuse large B-cell lymphoma versus high grade B-cell lymphoma with MYC and BCL-2 rearrangement. Material has been sent to [facility] to assess the status of these genes by FISH and an addendum report with a definitive classification will be issued upon receipt of the result. 10/17/2022 13:09 [facility] Attestation By the signature below, the attending physician certifies that they have 1) personally conducted a gross and/or microscopic examination of the described specimen(s), and/or personally interpreted the results of laboratory testing of the described specimen(s), and 2) personally rendered or confirmed the above diagnosis. 10/17/2022 13:09 [facility] at 1210 Microscopic Description There is a diffuse proliferation of large B-cells below the squamous epithelium. Nuclei are large, oval, and and often contain multiple small nucleoli. Scattered small lymphocytes are present. CD3 (SP7, [employer]) Background T-cells CD20 (L26, Ammon) diffusely positive in Neoplastic B-cells PAX-5 (1EW, Leica) diffusely positive in Neoplastic B-cells CD10 (SP67, Ammon) Negative BCL-6 (G/191E/A8, Ammon) Positive MUM-1 (MUM1p, Dako) Positive Myc (Y69, [employer]cam) Positive BCL-2 Oncoprotein (124, Ammon) Positive Ki67 (MIB-1) (K2, Leica) Greater than 95% of cells in cycle Cyclin D1(SP4-R, Ammon) Negative SAPPHIRE JOSE ([id number], Leica) Negative. 10/17/2022 13:09 EDT [facility] Clinical History Massive LAD, history of prostate cancer; clinical diagnosis code: R59.1 10/17/2022 13:09 EDT [facility] Gross Description A. Received in formalin labelled with proper patient identification (initials D, D) and left tongue base are multiple pale plasencia irregular soft tissue fragments which measure 0.8 x 0.6 x 0.5 cm in aggregate and are submitted in toto in A1. TAHMINA NELSON(ASCP) 10/06/2022 15:22 10/17/2022 13:09 EDT [facility] Performing Lab [facility] 13:09 EDT [facility] Scanned Images 10/17/2022 13:09 EDT [facility] Tissue TONGUE STRUCTURE / Unknown 10/05/2022 8:00 EDT 10/06/2022 8:28 EDT Lg Ramírez MD PATHOLOGY ORDERABLES [facility] [address] [place] [address] documented in this encounter Visit Diagnoses Diagnosis Generalized enlarged lymph nodes Enlargement of lymph nodes documented in this encounter Care Teams Media Specialist Relationship Specialty Start Date End Date Bobby Headley MD [address] [place] [address] PCP - General 01/18/12 documented as of this encounter
--- OUTSIDE RECORDS SUMMARY | 2023-10-17 03:24 | XMS_ITS | Encounter Summary ---
Author Organization [facility] Address [address] [place] [address] Care Team Providers Care Dog Track Kennel Manager Name Role Phone Bobby Headley MD Primary Care Provider [phone] Encounter Details Date Type Department Care Team (Late st Contact Info) Description 06/13/2023 Lab Requisition [facility] Pathology & Laboratory Medicine - [facility] [address] [place], [place] [address] Outr Resulting Lab, Provider Social History Tobacco [...] 610 - 1,616 mg/dL 06/14/2023 11:26 EDT [facility] IgA 119 85 - 499 mg/dL 06/14/2023 11:26 EDT [facility] IgM 124 35 - 242 mg/dL 06/14/2023 11:26 EDT [facility] Blood VENOUS BLOOD / Unknown 06/13/2023 10:17 EDT 06/13/2023 17:36 EDT Provider Outr Resulting Lab CHEMISTRY & BLOOD GAS ORDERABLES [facility] [address] [place] [address] documented in this encounter Visit Diagnoses Not on filedocumented in this encounter Care Teams Dog Track Kennel Manager Relationship Specialty Start Date End Date Bobby Headley MD [address] [phone] PCP - General 01/18/12 documented as of this encounter
--- OUTSIDE RECORDS SUMMARY | 2023-10-17 03:24 | XMS_ITS | Encounter Summary ---
Author Organization [facility] Address [address] [place] [address] Care Team Providers Care Scrap Baller Name Role Phone Bobby Headley MD Primary Care Provider [phone] Encounter Details Date Type Department Care Team (Late st Contact Info) Description 10/11/2022 Lab Requisition [facility] Pathology & Laboratory Medicine - [facility] [address] [place], [place] [address] Outr Resulting Lab, Provider Social History Tobacco [...] 610 - 1,616 mg/dL 10/12/2022 9:[address] [facility] IgA 182 85 - 499 mg/dL 10/12/2022 9:[address] [facility] IgM 233 35 - 242 mg/dL 10/12/2022 9:[address] [facility] Blood VENOUS BLOOD / Unknown 10/11/2022 10:55 EDT 10/11/2022 17:38 EDT Provider Outr Resulting Lab CHEMISTRY & BLOOD GAS ORDERABLES [facility] [address] [place] [address] documented in this encounter Visit Diagnoses Not on filedocumented in this encounter Care Teams Scrap Baller Relationship Specialty Start Date End Date Bobby Headley MD [address] [place] [address] PCP - General 01/18/12 documented as of this encounter
--- OUTSIDE RECORDS SUMMARY | 2023-10-17 03:24 | XMS_ITS | Encounter Summary ---
Author Organization [facility] Address [address] [place] [address] Care Team Providers Care Document Control Clerk Name Role Phone Bobby Headley MD Primary Care Provider [phone] Encounter Details Date Type Department Care Team (Late st Contact Info) Description 10/26/2022 Lab Requisition [facility] Pathology & Laboratory Medicine - [address] [address] Outr Resulting Lab, Provider Social History Tobacco [...] Antigen Detection Negative Negative 10/26/2022 23:03 EDT [facility] Urine URINE / Unknown 10/25/2022 6 :05 EDT 10/26/2022 22:47 EDT Provider Outr Resulting Lab MICROBIOLOGY - GENERAL ORDERABLES [facility] [address] [place] [address] documented in this encounter Visit Diagnoses Not on filedocumented in this encounter Care Teams Document Control Clerk Relationship Specialty Start Date End Date Bobby Headley MD [address] [place] [address] PCP - General 01/18/12 documented as of this encounter
--- OUTSIDE RECORDS SUMMARY | 2023-10-17 03:24 | XMS_ITS | Encounter Summary ---
Author Organization [facility] Address [address] [place] [address] Care Team Providers Care Bladder Cleaner Name Role Phone Bobby Headley MD Primary Care Provider [phone] Encounter Details Date Type Department Care Team (Late st Contact Info) Description 03/11/2021 Lab Requisition [facility] Pathology & Laboratory Medicine - [address] [id number] Outr Resulting Lab, Provider Social History Tobacco [...] 0.0 - 6.5 ng/mL 03/11/2021 21:52 EST [facility] Blood VENOUS BLOOD / Unknown 03/11/2021 12:38 EST 03/11/2021 21:02 EST Narrative [facility] - 03/11/2021 21:52 EST NOTE: Serum PSA concentration should not be interpreted as absolute evidence for the presence or absence of malignant disease. Assayed on Siemens ADVIA Claroaur XPT using chemiluminescent technology.??Values obtained by using different assay methods cannot be used interchangeably. Provider Outr Resulting Lab CHEMISTRY & BLOOD GAS ORDERABLES [facility] [address] [place] [address] documented in this encounter Visit Diagnoses Not on filedocumented in this encounter Care Teams Bladder Cleaner Relationship Specialty Start Date End Date Bobby Headley MD [address] [place] [address] [phone] PCP - General 01/18/12 documented as of this encounter
--- OUTSIDE RECORDS SUMMARY | 2023-10-17 03:24 | XMS_ITS | Encounter Summary ---
Author Organization [facility] Address [address] [place] [address] Care Team Providers Care Radiography Technician Name Role Phone Bobby Headley MD Primary Care Provider [phone] Encounter Details Date Type Department Care Team (Late st Contact Info) Description 09/26/2023 Lab Requisition [facility] Pathology & Laboratory Medicine - [address] [phone] Outr Resulting Lab, Provider Social History Tobacco [...] 1,616 mg/dL 09/27/2023 10:20 EDT [facility] IgA 108 85 - 499 mg/dL 09/27/2023 10:20 EDT [facility] IgM 129 35 - 242 mg/dL 09/27/2023 10:20 EDT [facility] Blood VENOUS BLOOD / Unknown 09/26/2023 7:47 EDT 09/26/2023 17:12 EDT Provider Outr Resulting Lab CHEMISTRY & BLOOD GAS ORDERABLES [facility] [address] [place] [address] documented in this encounter Visit Diagnoses Not on filedocumented in this encounter Care Teams Radiography Technician Relationship Specialty Start Date End Date Bobby Headley MD [address] [place] [address] [phone] PCP - General 01/18/12 documented as of this encounter
--- OUTSIDE RECORDS SUMMARY | 2023-10-17 03:24 | XMS_ITS | Encounter Summary ---
Author Organization [facility] Address [address] [place] [address] Care Team Providers Care Cob Sawyer Name Role Phone Bobby Headley MD Primary Care Provider [phone] Encounter Details Date Type Department Care Team (Late st Contact Info) Description 03/22/2022 Lab Requisition [facility] Pathology & Laboratory Medicine - [facility] [address] [place], [place] [id number] Outr Resulting Lab, Provider Social History Tobacco [...] PSA <0.1 <=6.5 ng/mL 03/22/2022 23:03 EST [facility] Blood VENOUS BLOOD / Unknown 03/22/2022 9:35 EST 03/22/2022 21:50 EST Narrative [facility] - 03/22/2022 23:03 EST NOTE: Serum PSA concentration should not be interpreted as absolute evidence for the presence or absence of malignant disease. Assayed on Siemens ADVIA Endocyteaur XPT using chemiluminescent technology.??Values obtained by using different assay methods cannot be used interchangeably. Provider Outr Resulting Lab CHEMISTRY & BLOOD GAS ORDERABLES [facility] [address] [place] [address] documented in this encounter Visit Diagnoses Not on filedocumented in this encounter Care Teams Cob Sawyer Relationship Specialty Start Date End Date Bobby Headley MD [address] [place] [phone] PCP - General 01/18/12 documented as of this encounter
--- OUTSIDE RECORDS SUMMARY | 2023-10-17 03:24 | XMS_ITS | Encounter Summary ---
Author Organization [facility] Address [facility] [place] [address] Care Team Providers Care Terminal Press Operator Name Role Phone Frederick Meade MD Primary Care Provider [phone] Encounter Details Date Type Department Care Team (Late st Contact Info) Description 10/15/2023 Orders Only Hematology Oncology at [address] [phone] Lucía Nelson, RN Diffuse large B-cell lymphoma of lymph [...] EDT TH Visit (TeleHealth) Hematology/Oncology at [address] [phone] Adrianne Ramon MD [facility] [place] [address] Yael Merlos APRN [facility] [place] [address] 10/17/2023 1:30 PM EDT Infusion Hematology Oncology at [address] [phone] 10/26/2023 9:00 AM EDT Office Visit Hematology [place] [address] Reynold Proctor MD [facility] [place] [address] 11/14/2023 9:30 AM EDT Office Visit Hematology/Oncology at [address] [phone] Adrianne Ramon MD [facility] HEMATOLOGY AND [place] [address] Yael Merlos APRN [facility] DR [place]OLOGY [place] [address] 11/14/2023 10:00 AM EDT Infusion Hematology Oncology at [address] [phone] documented as of this encounter Visit Diagnoses Diagnosis Diffuse large B-cell lymphoma of lymph nodes of multiple regions documented in this encounter Care Teams Terminal Press Operator Relationship Specialty Start Date End Date Frederick Meade MD [address] [place], [place] [address] PCP - General Family Medicine 11/29/17 documented as of this encounter
--- OUTSIDE RECORDS SUMMARY | 2023-10-17 03:24 | XMS_ITS | Clinical Summary ---
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 10/15/2023 11/05/2023 Active Active Problems Problem Noted Date Diagnosed Date Abnormal echocardiogram 11/20/2022 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 10/10/2022 Anemia, iron deficiency 08/21/2018 Gout 05/31/2017 Malignant neoplasm of prostate 09/01/2014 Encounters Date Type Department Care Team Description 10/17/2023 1:30 PM EDT Infusion Hematology Oncology at [address] [phone] 10/15/2023 Orders Only Hematology Oncology at [address] [phone] Lucía Nelson RN Diffuse large B-cell lymphoma of lymph nodes of multiple regions 10/15/2023 Refill Hematology/Oncolog y at [address] [phone] Adrianne Ramon MD Diffuse large B-cell lymphoma of lymph nodes of multiple regions 10/11/2023 8:30 AM EDT Infusion Hematology Oncology at [address] [phone] Diffuse large B-cell lymphoma of lymph nodes of multiple regions 10/11/2023 Orders Only Hematology [place] [address] Micha Givens Jr., MD Diffuse large B-cell lymphoma of lymph nodes of multiple regions; Stem cell transplant candidate; Pre-op testing; Blood clotting disorder; Disorder of thyroid 10/11/2023 Notes Only Hematology/Oncolog y at [address] [phone] Shelley Cason, MENTAL HYGIENE CONSULTANT 10/11/2023 Refill Hematology/Oncolog y at [address] [phone] Adrianne Ramon MD Diffuse large B-cell lymphoma of lymph nodes of multiple regions 10/10/2023 2:48 PM EDT - 10/10/2023 11:59 PM EDT Hospital En[place] [phone] Diffuse large B-cell lymphoma of lymph nodes of multiple regions; Stem cell transplant candidate; Pre-op testing Discharge Disposition: Home 10/10/2023 2:29 PM EDT - 10/10/2023 2:47 PM EDT Hospital Encounter Non-[place] [phone] Diffuse large B-cell lymphoma of lymph nodes of multiple regions; Stem cell transplant candidate; Pre-op testing Discharge Disposition: Home 10/10/2023 2:14 PM EDT - 10/10/2023 2:28 PM EDT Hospital Encounter XRay at [address] [place] [address] Micha Givens Jr., MD Diffuse large B-cell lymphoma of lymph nodes of multiple regions; Stem cell transplant candidate; Pre-op testing Discharge Disposition: Home 10/10/2023 1:04 PM EDT - 10/10/2023 2:13 PM EDT Hospital Encounter [place] [phone] Discharge Disposition: Home 10/10/2023 Travel 10/10/2023 Orders Only Hematology Oncology at [address] [phone] Tania Rosales RN Diffuse large B-cell lymphoma of lymph nodes of multiple regions 10/04/2023 Telephone Hematology/Oncolog y at [address] [phone] Colt Ardon RN Follow-up (Re constipation ) 10/03/2023 10:30 AM EDT Infusion Hematology Oncology at [address] [phone] Diffuse large B-cell lymphoma of lymph nodes of multiple regions 10/03/2023 10:00 AM EDT Office Visit Hematology/Oncolog y at [address] [phone] Adrianne Ramon MD Stearns, Diane M, WINDING OPERATOR Diffuse large B-cell lymphoma of lymph nodes of multiple regions 10/03/2023 Travel 09/28/2023 Telephone Hematology/Oncolog y at [address] [phone] Colt Ardon RN Constipation 09/26/2023 8:30 AM EDT Infusion Hematology Oncology at [address] [phone] Diffuse large B-cell lymphoma of lymph nodes of multiple regions 09/26/2023 Unscheduled Encounter Hematology/Oncolog y at [address] [phone] Diffuse large B-cell lymphoma of lymph nodes of multiple regions 09/26/2023 Notes Only Hematology [place] [address] Yael Merlos APRN Hyperglycemia 09/26/2023 Travel 09/25/2023 10:00 AM EDT Telephone Hematology [place] [address] 09/25/2023 Orders Only Hematology [place] [phone] Micha Givens Jr., MD Screening for colon cancer; Diffuse large B-cell lymphoma of lymph nodes of multiple regions; Stem cell transplant candidate; Pre-op testing 09/21/2023 10:51 AM EDT - 09/21/2023 11:59 PM EDT Hospital Encounter Hematology [place] [address] Diffuse large B-cell lymphoma of lymph nodes of multiple regions; Stem cell transplant candidate; Pre-op testing; Prostate cancer screening; Iron deficiency anemia, unspecified iron deficiency anemia type Discharge Disposition: Home 09/21/2023 10:30 AM EDT Clinical Support Hematology [place] [phone] Danii Her RN Diffuse large B-cell lymphoma of lymph nodes of multiple regions 09/21/2023 9:30 AM EDT Office Visit Hematology [place] [phone] Micha Givens Jr., MD Diffuse large B-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; Iron deficiency anemia, unspecified iron deficiency anemia type; Non-Hodgkin lymphoma of lymph nodes of multiple regions, unspecified non-Hodgkin lymphoma type 09/21/2023 Orders Only Hematology [place] [phone] Micha Givens Jr., MD Diffuse large B-cell lymphoma of lymph nodes of multiple regions; Stem cell transplant candidate; Pre-op testing; At high risk for bleeding; Prostate cancer screening; Iron deficiency anemia, unspecified iron deficiency anemia type 09/21/2023 Travel 09/20/2023 Orders Only Hematology [place] [phone] Micha Givens Jr., MD Diffuse large B-cell lymphoma of lymph nodes of multiple regions 09/19/2023 8:00 AM EDT Infusion Hematology Oncology at [address] [phone] Diffuse large B-cell lymphoma of lymph nodes of multiple regions 09/19/2023 Telephone Hematology/Oncolog y at [address] [phone] Polly Orellana, OSCAR Other (Prednisone taper ) 09/19/2023 Orders Only Hematology [place] [address] Adrianne Ramon MD 09/19/2023 Orders Only Hematology [place] [address] Yael Merlos, WINDING OPERATOR Diffuse large B-cell lymphoma of lymph nodes of multiple regions 09/19/2023 Telephone Hematology/Oncolog y at [address] [phone] Polly Orellana, OSCAR Follow-up (Possible free drug thru [facility]) 09/19/2023 Notes Only Hematology/Oncolog y at [address] [phone] Shelley Cason, MENTAL HYGIENE CONSULTANT 09/19/2023 Travel 09/14/2023 Telephone Hematology/Oncolog y at [address] [phone] Brenda Priest RN 09/13/2023 Telephone Hematology/Oncolog y at [address] [phone] Colt Ardon RN Other (Financial paperwork ) 09/12/2023 10:15 AM EDT Office Visit Hematology/Oncolog y at [address] [phone] Adrianne Ramon MD Stearns, Diane M, WINDING OPERATOR Diffuse large B-cell lymphoma of lymph nodes of multiple regions; High risk medication use 09/12/2023 Telephone Hematology/Oncolog y at [address] [phone] Ploly Orellana, RN New Medication Request (revlimid) 09/12/2023 Telephone Hematology/Oncolog y at [address] [phone] Adrianne Ramon MD 09/12/2023 Travel 09/06/2023 1:00 PM EDT - 09/06/2023 11:59 PM EDT Hospital Encounter [place] [address] Adrianne Ramon MD Discharge Disposition: Home 09/06/2023 12:59 PM EDT Hospital Encounter Nuclear Medicine at [place] [phone] Adrianne Ramon MD Diffuse large B-cell lymphoma of lymph nodes of multiple regions; Skin nodule Discharge Disposition: Home 09/06/2023 10:15 AM EDT - 09/06/2023 12:58 PM EDT Hospital Encounter Radiology at [place] [phone] Adrianne Ramon MD Diffuse large B-cell lymphoma of lymph nodes of multiple regions; Skin nodule Discharge Disposition: Home 09/06/2023 9:48 AM EDT - 09/06/2023 10:14 AM EDT Hospital Encounter Hematology and Oncology at [place] [phone] Diffuse large B-cell lymphoma of lymph nodes of multiple regions; Skin nodule Discharge Disposition: Home 09/06/2023 Travel 08/22/2023 12:30 PM EDT Office Visit Hematology/Oncolog y at [address] [phone] Adrianne Ramon MD Stearns, Diane M, WINDING OPERATOR Diffuse large B-cell lymphoma of lymph [...] Sign Reading Time Taken Comments Blood Pressure 128/51 10/11/2023 8:32 AM EDT Pulse 58 10/11/2023 8:32 AM EDT Temperature 36.2 ??C (97.1 ??F) 10/03/2023 9:57 AM ED T Respiratory Rate 18 10/11/2023 8:32 AM EDT Oxygen Saturation 100% 10/11/2023 8:32 AM EDT Inhaled Oxygen Concentration - - Weight 87.3 kg (192 lb 6.4 oz) 10/11/2023 8:32 A M EDT Height 170.1 cm (5' 6.97) 10/11/2023 8:32 AM ED T Body Mass Index 30.16 10/11/2023 8:32 AM EDT Plan of Treatment Upcoming Encounters Date Type Department Care Team (Late st Contact Info) Description 10/17/2023 1:00 PM EDT TH Visit (TeleHealth) Hematology/Oncology at [address] [phone] Adrianne Ramon MD [facility] HEMAT[place] [address] Yael Merlos APRN [facility] [place]AT[place]Y [place] [address] 10/17/2023 1:30 PM EDT Infusion Hematology Oncology at [address] [phone] 10/26/2023 9:00 AM EDT Office Visit Hematology [place] [address] Reynold Proctor MD [facility] [place] [address] 11/14/2023 9:30 AM EDT Office Visit Hematology/Oncology at [address] [phone] Adrianne Ramon MD [facility] HEMATOLOGY [place] [address] Yael Merlos APRN [facility] [place] [address] 11/14/2023 10:00 AM EDT Infusion Hematology Oncology at [address] [phone] Health Maintenance Due Date Last Done Comments CT Colonography 1948 Colonoscopy 1948 Colorectal Cancer Screening 1948 FIT DNA 1948 FIT 1948 Sigmoidoscopy (10 year) with FIT yearly 1948 Sigmoidoscopy 1948 Lipid Screening 1966 Tdap adult 1967 Tetanus vaccine 1967 Zoster vaccine (1 of 2) 1998 Advance Directive 2003 AAA Screen 2013 Pneumoccocal Vaccine: 65+ (1 of 1 - PCV) 2013 Covid-19 Vaccine ( - 2022-24 season) 2022 Influenza (Flu) vaccine (1 o f 1 - Influenza standard series) 10/21/2023 Hepatitis C Screening Completed 10/17/2022 Medical Devices Explanted Type Area Truck Operator Device Identifier Shelf Expiration Date Model / Serial / Lot Port Infusion 8fr Cath Power Injectable Lp 1lum Ct Ti [id number]/17 Implanted:Qty: 1 on 10/17/2022 by Gail Jha PA Explanted:Qty: 1 on 03/29/2023 by Chalo Crews PA IMPLANTS Right: Chest Wall [employer] - CR BARD 03/21/2024 [id number] / / [id number] Procedures Procedure Name Priority Date/Time Associated Diagnosis Comments LAB SCAN 10/11/2023 12:00 AM EDT COMMON PULMONARY FUNCTION TEST Routine 10/10/2023 3:24 PM EDT 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 Pre-op testing EKG 12-LEAD Routine 10/10/2023 2:40 PM EDT 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 Pre-op testing XR CHEST PA AND LATERAL Routine 10/10/19 2:21 PM EDT Diffuse large B-cell lymphoma of [...] candidate Pre-op testing TOXOPLASMA ANTIBODY, IGM Routine 11:14 AM EDT Diffuse large B-cell [...] Health Maintenance Results * Scan Doc: Lab (10/11/2023 12:00 AM EDT) Only the most recent of13 resultswithin the time period is included. Narrative 10/11/2023 12:00 AM EDT Ordered by an unspecified provider. Scanning Provider MEDIA MGR SCAN EXT O RDR/RSLT * Common Pulmonary Function Test (10/10/2023 3:24 [...] PFT FEV1/FVC Pre-BD Z-Score -2.14 COMPAS PFT NKH97-10 Actual Pre-BD 1.11 % COMPAS PFT OYF01-23 Predicted 2 % COMPAS PFT VRY72-46 Pre-BD % of Predicted 56 % COMPAS PFT AYJ06-09 Pre-BD Z-Score -1.17 COMPAS PFT DLCO Hb [...] emphysema. Procedure Note Chalo Kenyon MD - 08/21/2024 FINDINGS: FEV1 and FVC are normal, FEV1/VC is reduced. Diffusion capacityis reduced even when adjusted for hemoglobin of 12.2 g/dL. IMPRESSION: Spirometry demonstrates mild (FEV1 >70%) obstruction. Mildreduction in diffusing capacity (DLCO > 60% and < lower limit of normal). Obstruction combinedwith a reduced diffusion capacity suggests emphysema. Micha Givens Jr., MD PFT ORDERABLES Performing Organization Address [facility] de Phone Number COMPAS PFT * EKG 12 Lead (10/10/2023 2:40 PM EDT) Ventricular rate 59 BPM MUSE SYSTEM Atrial Rate 59 BPM MUSE SYSTEM P-R Interval 158 ms MUSE SYSTEM QRS Duration 88 ms MUSE SYSTEM Q-T Interval 394 ms MUSE SYSTEM QTC Calculated (Bezet) 390 ms MUSE SYSTEM Calculated P [place] 67 degrees MUSE SYSTEM Calculated R [place] 32 degrees MUSE SYSTEM INTERPRETATION Sinus bradycardia Nonspecific ST abnormality Abnormal ECG No previous ECGs available Confirmed by MD Valderrama David ([id number]) on 10/14/2023 10:09:54 PM MUSE SYSTEM 10/10/2023 2:40 PM EDT 10/14/2023 10:09 PM EDT Micha Givens Jr., MD ECG ORDERABLES Performing Organization Address [facility] de Phone Number MUSE SYSTEM * XR Chest PA & Lateral (Generic) (10/10/2023 2:21 PM EDT) Pathologist [facility] WORKSTATION ID [id number] DH RAD Anatomical Region Laterality Modality Chest N/A Digital Radiogra phy Impressions 10/11/2023 11:50 AM EDT No acute pulmonary findings I have personally reviewed the image(s) and the resident's interpretation and agree with the findings, Davey Tolentino MD at 10/11/2023 11:50 AM Thank you for letting us participate in the care of this patient. ??If you are a health care provider and have any questions regarding this report, please contact the number below. ??For patients who have questions please contact the health rn critical care that requested your imaging first. ? Electronically signed by: Davey Tolentino MD, [facility] ??([phone]), at 10/11/2023 11:50 AM Narrative 10/11/2023 11:50 AM EDT EXAMINATION: XR CHEST PA AND LATERAL (GENERIC) CLINICAL HISTORY: Pre-CAR T TECHNIQUE: PA and lateral views of the chest COMPARISON: PET/CT 09/06/2023 FINDINGS: Mild basilar atelectasis. The cardiomediastinal silhouette are within normal limits. No pneumothorax or pleural effusion. Procedure Note Davey Tolentino MD - 10/11/2023 EXAMINATION: XR CHEST PA AND LATERAL (GENERIC) CLINICAL HISTORY: Pre-CAR T TECHNIQUE: PA and lateral views of the chest COMPARISON: PET/CT 09/06/2023 FINDINGS: Mild basilar atelectasis. The cardiomediastinal silhouette are within normal limits. No pneumothorax or pleural effusion. IMPRESSION No acute pulmonary findings I have personally reviewed the image(s) and the resident's interpretationand agree with the findings, Davey Tolentino MD at 10/11/2023 11:50 AM Thank you for letting us participate in the care of this patient. If youare a health care provider and have any questions regarding this report,please contact the number below. For patients who have questions please contactthe health rn critical care that requested your imaging first. Electronically signed by: Davey Tolentino MD, [facility]([phone]), at 10/11/2023 11:50 AM Micha Givens Jr., MD IMG DX ORDERABLES * External Hematology Lab Results (10/03/2023) WBC - External 16.27 Hemoglobin - External 12.2 Hematocrit - External 36.9 Platelets - External 167 Neutr ABS (ANC) - External 13.8 10/03/2023 Historical Provider MD JOAN GARCIA * External Chemistry Lab Results (10/03/2023) [facility] Blood Urea Nitrogen - External 26 Creatinine - External 1.5 Potassium - External 3.3 AST (SGOT) - External 24 ALT (SGPT) - External 45 Total Bilirubin - External 0.61 Ferritin - External 397 LDH - External 226 10/03/2023 Historical Provider MD JOAN GARCIA * Blood Donor Serologic Testing (09/21/2023 11:14 AM EDT) Blood VENOUS BLOOD SPECIMEN / Unknown IP Care Team Draw / Unknown 09/21/2023 11:14 AM EDT 09/25/2023 4:30 PM EDT Micha Givens Jr., MD BLOOD BANK LAB ORDER DUONG [facility] [place] [address] * Type and Screen Validity (09/21/2023 11:14 AM EDT) [facility] T&S only valid at [facility] LABORATORY Comment:This Type and Screen result is only valid at the [facility] Blood 09/21/2023 11:1 4 AM EDT 09/21/2023 11:31 AM EDT Narrative Resulting Agency Comment Spec In Lab Micha Givens Jr., MD BLOOD BANK LAB ORDER DUONG [facility] [place] [address] * Hemoglobin S Screen (09/21/2023 11:14 AM EDT) [facility] HGB S Screen Screen Negative Screen Negative [facility] Blood 09/21/2023 11:1 4 AM EDT 09/21/2023 11:30 AM EDT Narrative Resulting Agency Comment Spec In Lab Micha Givens Jr., MD HEMATOLOGY ORDERABLE S Performing Organization Address City/[facility]/ZIP Co de Phone Number [facility] [place] [address] * ABORH Recheck Status (09/21/2023 11:14 AM EDT) ABORH Recheck Order Order Placed [facility] ABORH Type Recheck not performed [facility] Blood 09/21/2023 11:1 4 AM EDT 09/21/2023 11:31 AM EDT Narrative Resulting Agency Comment Spec In Lab Micha Givens Jr., MD BLOOD BANK LAB ORDER DUONG Performing Organization Address [facility]/ZIP Co de Phone Number [facility] [place] [address] * (ABNORMAL) CRP, acute inflammation (09/21/2023 11:14 AM EDT) C-Reactive Protein 52.8(H) <=4.9 mg/L [facility] Blood 09/21/2023 11:1 4 AM EDT 09/21/2023 11:30 AM EDT Narrative Resulting Agency Comment Spec In Lab Micha Givens Jr., MD CHEMISTRY ORDERABLES Performing Organization Address City/[facility]/ZIP Co de Phone Number [facility] [place] [address] * PSA Screen (09/21/2023 11:14 AM EDT) PSA Screen 0.03 0.00 - 4.00 ng/mL [facility] Comment: PLEASE NOTE: The above [...] Jr., MD CHEMISTRY ORDERABLES Performing Organization Address [facility] Co de Phone Number [facility] [place] [address] * Calcium, Ionized, Serum (09/21/2023 11:14 AM EDT) Ionized Calcium 1.25 1.15 - 1.33 mmol/L [facility] Comment: Note: Total bilirubin higher [...] Jr., MD CHEMISTRY ORDERABLES Performing Organization Address [facility] Co de Phone Number [facility] [place] [address] * (ABNORMAL) Hemogram (09/21/2023 11:14 AM EDT) Only the most recent of2 resultswithin the time period is included. White Blood Cell 7.3 4.0 - 9.5 x10(3)/mc L [facility] Red Blood Cell 4.20(L) 4.58 - 5.54 x10(6)/mc L [facility] Hemoglobin 12.3(L) 13.7 - 16.5 g/dL [facility] Hematocrit 38.4(L) 40.5 - 48.5 % [facility] Mean Cell Volume 91.4 82.9 - 93.1 fL [facility] Mean Cell Hemoglobin 29.3 27.5 - 32.1 pg [facility] Mean Cell Hemoglobin Concentration 32.0 32.0 - 35.7 g/dL [facility] Platelet 152 145 - 357 x10(3)/mc L [facility] RDW Standard Deviation 48.4(H) 36.0 - 45.0 fL [facility] RDW coefficient of variation 14.5(H) 11.4 - 13.8 % [facility] Mean Platelet Volume 11.5 7.6 - 12.9 fL [facility] NRBC% auto 0.0 % [facility] NRBC Absolute 0.000 0.000 - 0.000 x10(3)/mc L [facility] Blood 09/21/2023 11:1 4 AM EDT 09/21/2023 11:30 AM EDT Narrative Resulting Agency Comment Spec In Lab Micha Givens Jr., MD HEMATOLOGY ORDERABLE S [facility] [place] [address] * (ABNORMAL) Differential, Automated (09/21/2023 11:14 AM EDT) Only the most recent of2 resultswithin the time period is included. Neutrophil % 90.8 % [facility] Neutrophil Absolute 6.59(H) 1.70 - 6.10 x10(3)/mc L [facility] Lymph % 5.1 % [facility] Lymphocytes Abs 0.4(L) 0.9 - 3.2 x10(3)/mc L [facility] Monocyte % 3.0 % [facility] Monocyte Abs 0.2(L) 0.3 - 0.9 x10(3)/mc L [facility] Eos % 0.4 % [facility] Eosinophils Abs 0.0 0.0 - 0.4 x10(3)/ L [facility] Basophil % 0.1 % [facility] Baso Absolute 0.0 0.0 - 0.1 x10(3)/[facility] LABORATORY Immature Gran % 0.60 % [facility] Comment: Immature granulocytes(IG's)percentage and absolute count will include metamyelocytes, myelocytes, and promyelocytes. Blood smears from CBCs yielding IG's will be scanned manually for concordance. If this scan disagrees with the automated IG or if promyelocytes are noted, a manual differential will be performed. Immature Gran Absolute 0.04 0.00 - 0.04 x10(3)/[facility] LABORATORY Blood 09/21/2023 11:1 4 AM EDT 09/21/2023 11:30 AM EDT Narrative Resulting Agency Comment Spec In Lab Micha Givens Jr., MD HEMATOLOGY ORDERABLE S [facility] [place] [address] * HSV 1 and 2 IgG Antibodies (09/21/2023 11:14 AM EDT) Pathologist [facility] HSV Type 1 Ab, IgG Negative Negative [facility] HSV Type 2 Ab, IgG Negative Negative [facility] Blood 09/21/2023 11:1 4 AM EDT 09/21/2023 1:04 PM EDT Narrative Resulting Agency Comment Spec In Lab Micha Givens Jr., MD IMMUNOLOGY ORDERABLE S [facility] [place] [address] * (ABNORMAL) [place]-Pick[place] Virus Antibodies (09/21/2023 11:14 AM EDT) EBV (VCA) IgG Ab Positive(A) Negative M BRISA [facility] EBV (VCA) IgM Ab Negative Negative MAR Y [facility] EBNA Antibodies Positive(A) Negative MA RY [facility] EBV Interpretation Past EBV infection. [facility] Comment: In most populations, at [...] MD IMMUNOLOGY ORDERABLE S Performing Organization Address [facility]/ZIP Co de Phone Number [facility] [place] [address] * CMV Antibody, IgM (09/21/2023 11:14 AM EDT) CMV IgM Negative Negative [facility] Blood 09/21/2023 11:1 4 AM EDT 09/21/2023 1:04 PM EDT Narrative Resulting Agency Comment Spec In Lab Micha Givens Jr., MD IMMUNOLOGY ORDERABLE S Performing Organization Address [facility] Co de Phone Number [facility] [place] [address] * (ABNORMAL) Iron and TIBC (09/21/2023 11:14 AM EDT) Iron 39(L) 45 - 160 mcg/dL [facility] TIBC 255 250 - 450 mcg/dL [facility] Iron Saturation 15(L) 20 - 50 % [facility] Blood 09/21/2023 11:1 4 AM EDT 09/21/2023 11:30 AM EDT Narrative Resulting Agency Comment Spec In Lab Micha Givens Jr., MD CHEMISTRY ORDERABLES [facility] [place] [address] * Toxoplasma Antibody, IgM (09/21/2023 11:14 AM EDT) Toxoplasma Antibody IgM Negative Negative [facility] Blood 09/21/2023 11:1 4 AM EDT 09/21/2023 1:04 PM EDT Narrative Resulting Agency Comment Spec In Lab Micha Givens Jr., MD IMMUNOLOGY ORDERABLE S Performing Organization Address City/[facility]/ZIP Co de Phone Number [facility] [place] [address] * Toxoplasma Antibody, IgG (09/21/2023 11:14 AM EDT) Toxoplasma Antibody IgG Negative Negative [facility] Blood 09/21/2023 11:1 4 AM EDT 09/21/2023 1:04 PM EDT Narrative Resulting Agency Comment Spec In Lab Micha Givens Jr., MD IMMUNOLOGY ORDERABLE S Performing Organization Address City/[facility]/ZIP Co de Phone Number [facility] [place] [address] * CMV Antibody, IgG (09/21/2023 11:14 AM EDT) CMV IgG Negative Negative [facility] Blood 09/21/2023 11:1 4 AM EDT 09/21/2023 1:04 PM EDT Narrative Resulting Agency Comment Spec In Lab Micha Givens Jr., MD IMMUNOLOGY ORDERABLE S Performing Organization Address City/[facility]/ZIP Co de Phone Number [facility] [place] [address] * Type and screen ([facility]/MARCELINA) (09/21/2023 11:14 AM EDT) ABORH Type O NEGATIVE [facility] Patient BB History Not Found [facility] Expires at [id number] on: 09/24/2023 [facility] Ab Screen Interp Negative [facility] Blood 09/21/2023 11:1 4 AM EDT 09/21/2023 11:14 AM EDT Narrative [facility] - 09/21/2023 11:14 AM EDT This Type and Screen result is only valid at the [facility] Resulting Agency Comment Spec In Lab Micha Givens Jr., MD BLOOD BANK LAB ORDER DUONG [facility] [place] [address] * Direct antiglobulin test (09/21/2023 11:14 AM EDT) WILLIAN Poly Negative [facility] 09/21/2023 11:1 4 AM EDT 09/21/2023 11:14 AM EDT Micha Givens Jr., MD BLOOD BANK LAB ORDER DUONG Performing Organization Address City/[facility]/ZIP Co de Phone Number [facility] [place] [address] * Varicella zoster Antibody, IgG (09/21/2023 11:14 AM EDT) Pathologist [facility] Varicella Zoster Antibody IgG Positive Positive [facility] Comment: A positive result for this assay is considered to be an indicator of positive immune status. Blood 09/21/2023 11:1 4 AM EDT 09/21/2023 1:04 PM EDT Narrative Resulting Agency Comment Spec In Lab Micha Givens Jr., MD IMMUNOLOGY ORDERABLE S [facility] [place] [address] * Uric acid (09/21/2023 11:14 AM EDT) Uric Acid 5.1 3.5 - 8.5 mg/dL [facility] Blood 09/21/2023 11:1 4 AM EDT 09/21/2023 11:30 AM EDT Narrative Resulting Agency Comment Spec In Lab Micha Givens Jr., MD CHEMISTRY ORDERABLES Performing Organization Address City/[facility]/ZIP Co de Phone Number [facility] [place] [address] * Phosphorus (09/21/2023 11:14 AM EDT) Phosphorus 2.9 2.5 - 4.5 mg/dL [facility] Blood 09/21/2023 11:1 4 AM EDT 09/21/2023 11:30 AM EDT Narrative Resulting Agency Comment Spec In Lab Micha Givens Jr., MD CHEMISTRY ORDERABLES Performing Organization Address City/[facility] Co de Phone Number [facility] [place] [address] * Magnesium (09/21/2023 11:14 AM EDT) Magnesium 0.80 0.69 - 1.07 mmol/L [facility] Blood 09/21/2023 11:1 4 AM EDT 09/21/2023 11:30 AM EDT Narrative Resulting Agency Comment Spec In Lab Micha Givens Jr., MD CHEMISTRY ORDERABLES Performing Organization Address City/[facility] Co de Phone Number [facility] [place] [address] * (ABNORMAL) Lactate Dehydrogenase (09/21/2023 11:14 AM EDT) Only the most recent of2 resultswithin the time period is included. Lactate Dehydrogenase 426(H) 110 - 220 unit/L [facility] Blood 09/21/2023 11:1 4 AM EDT 09/21/2023 11:30 AM EDT Narrative Resulting Agency Comment Spec In Lab Micha Givens Jr., MD CHEMISTRY ORDERABLES Performing Organization Address City/[facility]/ZIP Co de Phone Number [facility] [place] [address] * Ferritin (09/21/2023 11:14 AM EDT) Pathologist [facility] Ferritin 393 31 - 409 ng/mL [facility] Comment: Please note that as of 01/24/2023, the reference intervals for Ferritin have been updated. Blood 09/21/2023 11:1 4 AM EDT 09/21/2023 11:30 AM EDT Narrative Resulting Agency Comment Spec In Lab Micha Givens Jr., MD CHEMISTRY ORDERABLES Performing Organization Address [facility] Co de Phone Number [facility] [place] [address] * (ABNORMAL) Comprehensive metabolic panel (non-fasting) (09/21/2023 11:14 AM EDT) Only the most recent of3 resultswithin the time period is included. Pathologist [facility] Glucose 326(H) 65 - 199 mg/dL [facility] Comment:Diabetes: >=200 mg/d L plus symptoms Blood Urea Nitrogen 26(H) 10 - 20 mg/dL [facility] Creatinine 1.16 0.80 - 1.50 mg/dL [facility] Sodium 138 135 - 145 mmol/L [facility] Potassium 4.0 3.5 - 5.0 mmol/L [facility] Comment: Please note: ??Patients with WBC >100,000 may have falsely elevated Potassium levels. ??For accurate Potassium quantification in these patients send serum separator tube (gold top) for subsequent determinations. ??Contact the Clinical Chemistry Laboratory if there are any questions. Chloride 103 98 - 107 mmol/L [facility] Carbon Dioxide 21(L) 22 - 31 mmol/L [facility] Anion Gap 14 5 - 15 mmol/L [facility] Calcium 9.5 8.5 - 10.5 mg/dL [facility] Protein, Total 6.3 6.1 - 8.0 g/dL [facility] Albumin 3.9 3.2 - 5.2 g/dL [facility] Aspartate Aminotransferase 54(H) 0 - 39 unit/L [facility] Alanine Aminotransferase 72(H) 0 - 55 unit/L [facility] Alkaline Phosphatase 202(H) 40 - 130 unit/L [facility] Bilirubin, Total 0.4 0.2 - 1.3 mg/dL [facility] Est Glomerular Filtration Rate 66 >=60 mL/min/1. 73 m?? [facility] Comment: This patient's estimated GFR [...] Lab Micha Givens Jr., MD CHEMISTRY ORDERABLES [facility] [place] [address] * Urinalysis with reflex Culture (09/21/2023 11:11 AM EDT) Glucose, Urine Dipstick Negative Negative mg/dL [facility] Protein, Urine Dipstick Negative Negative mg/dL [facility] Bilirubin, Urine Dipstick Negative Negative mg/dL [facility] Comment: Clinical correlation required for positive Urine Bilirubin results as false positive may occur with some drugs and drug related products. If a false positive is suspected a serum total bilirubin should be considered if clinically indicated. Urobilinogen, Urine Dipstick Normal Normal mg/dL [facility] pH, Urn (dipstick) 6.5 5.0 - 8.0 [facility] Blood, Urine Dipstick Negative Negative mg/dL [facility] Ketone, Urine Dipstick Negative Negative mg/dL [facility] Nitrite, Urine Dipstick Negative Negative [facility] Leukocytes, Urine Dipstick Negative Negative [facility] Appearance, Urine Dipstick Clear Clear [facility] Specific [place] Urine Automated 1.009 1.005 - 1.030 [facility] Color, Urine Dipstick Yellow Yellow [facility] Reflex to Culture No [facility] Clean Catch Urine 09/21/2023 11:11 AM EDT 09/21/2023 11:33 AM EDT Narrative Resulting Agency Comment Spec In Lab Micha Givens Jr., MD URINE ORDERABLES [facility] [place] [id number] * Scan Doc: Echo (09/17/2023 12:00 AM EDT) Anatomical Region Laterality Modality Cardiac Other Narrative 09/17/2023 12:00 AM EDT Ordered by an unspecified provider. Scanning Provider MEDIA MGR SCAN EXT O RDR/RSLT * NM PET CT Standard Plus Extremities and Head (09/06/2023 2:45 PM EDT) WORKSTATION ID [id number] RAD Anatomical Region Laterality Modality Positron Emissio [...] signed by: Rohan Henley MD, [facility] ([phone]), at 09/10/2023 11:18 AM Narrative 09/10/2023 11:18 [...] unspecified. TECHNIQUE: Procedure: Following IV injection of 65-xqezls-2-deoxyglucose (FDG) a standard uptake of approximately 60 [...] unspecified. TECHNIQUE: Procedure: Following IV injection of 88-bayucq-1-deoxyglucose(FDG) a standard uptake of approximately 60 minutes, a noncontrast CT scanfollowed by a PET scan were acquired from the top of head to bottom of feet. SpeechTranstrast CT was used for anatomic localization and [...] critical care that requested your imaging first. Electronically signed by: Rohan Henley MD, [facility]([phone]), at 09/10/2023 11:18 AM Adrianne Ramon MD IMG PET ORDERABL ES * POCT Glucose (09/06/2023 1:06 PM EDT) Only the most recent of2 resultswithin the time period is included. Glucose, POC 98 65 - 199 mg/dL [facility] Comment: Supplemental ranges: <140 mg/dL before meals <180 mg/dL all other times of the day Blood 09/06/2023 1:06 PM EDT 09/06/2023 1:06 PM EDT Adrianne Ramon MD POINT OF CARE TE ST ORDERABLES [facility] [place] [address] * IR Biopsy Lymph Node (Chest/Abdomen/Pelvis) (09/06/2023 [...] period is included. Immunophenotyping Flow See Comment [facility] Comment: When completed by the Pathologist, the Flow Cytometry Report ([id number]) will display under the Pathology Results section within eDH. Other 09/06/2023 12:2 8 PM EDT 09/06/2023 12:47 PM EDT Narrative Resulting Agency Comment Spec In Lab Micha Pearl MD HEMATOLOGY ORDERABLE S [facility] [place] [id number] * Flow Cytometry Report (09/06/2023 12:28 PM EDT) Only the most recent of2 resultswithin the time period is included. Flow Cytometry Report [id number] ? Location: 3 The signing pathologist has (i) examined the relevant preparation(s) for the specimen(s) and (ii) rendered or confirmed the diagnosis(es). . ?Flow Cytometry DIAGNOSIS ? 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 See comment. Electronically signed by: ?Dana OCASIO, Filemon Verified: ??09/10/2023 15:05 ??Hematopathologist Performed at: ??-[facility] Dept. of Pathology, [place] [address] Radio Personality: Katherine Lopez MD, FCAP, ??CLIA Certificate: [id number] DISCUSSION The T-lymphocytes , B- lymphocytes and [...] by the Clinical Flow Cytometry Laboratory at [facility]. It has not been cleared [...] high complexity clinical laboratory testing. SPECIMEN PROCESSING [id number] Cells for immunophenotypic analysis were derived from LEFT AUX LYMPH NODE. CD45 vs side scatter gating was utilized to identify a LYMPHOID analysis region that comprises approximately 95-97% of all cells. The following markers were assessed: CD2, CD3, CD4, CD5, CD7, CD8, CD10, CD19, CD20, CD23, CD38, CD45, CD56, FMC-7, kappa light chain, and lambda light chain. CLINICAL INFORMATION dlbcl [facility] 09/06/2023 12:2 8 PM EDT Micha Pearl MD PATHOLOGY/CYTOLOGY O RDERABLES [facility] [place] [address] * chromo report acquired (09/06/2023 11:35 AM EDT) Pathologist [facility] Cytogenetics Acquired Report Final Report ? [id number] Specimen Type: Fixed Tissue Specimen Condition: 1 [...] dual-color, break-apart probes for BCL6/3q27 rearrangement ([employer] shows a signal pattern consistent with a BCL6 rearrangement in 0% of 100 cells. This is within the acceptable reference limits (0-7.4%). Thus, there is no evidence for BCL6/3q27 gene rearrangement. Interphase FISH analysis using dual-color, break-apart probes for MYC/8q24 rearrangement ([employer] shows 0% of 100 cells with a MYC rearrangement signal pattern. This is within acceptable reference limits (0-6.0%). Thus, there is no evidence for MYC/8q24 gene rearrangement. Interphase FISH analysis using dual-color, dual-fusion probes for MYC-IGH/t(8;14)(q2 4;q32) ([employer] shows 0% of 100 cells with [...] its performance characteristics were determined by the [facility] ([facility]) Cytogenetics Laboratory as required by The [...] the test? s accuracy and precision. The [facility] Cytogenetics Laboratory is certified under the CLIA? 88 as qualified to perform high complexity clinical laboratory testing. Chromosome alterations outside the regions complementary to these DNA FISH probes will not be detected. 09.20.23 (Electronic Signature) Verified By: Channing Ph.D., FAC, Tommy Loja Clinical Tree Surgeon Helper/Mol ecular Cnc Cutting Operator [facility] 09/06/2023 11:3 5 AM EDT 09/11/2023 8:57 AM EDT James P Jaycee DO HEMATOLOGY ORDERABLE S [facility] [place] [address] * (ABNORMAL) Surgical Pathology Report (09/06/2023 11:35 AM EDT) Surgical Pathology Report [id number] ? Location: [facility] The signing pathologist has (i) examined the [...] Filemon Verified: ??09/10/2023 18:38 ??Hematopathologist Performed at: ??-[facility] Dept. of Pathology, [place] [address] Radio Personality: Katherine Lopez MD, FCAP, ??CLIA Certificate: [id number] SYNOPTIC THIS RESULT REQUIRES PHYSICIAN/A.P.P. FOLLOW UP [...] lymphoid neoplasms . Blood . 2016. 127 (20):3813-2801. Rafael CP et al . Blood 103:275-282 [...] in 2 cassettes labeled B1-B2. ??CCP(A) [facility] 09/06/2023 11:3 5 AM EDT James Champion DO PATHOLOGY/CYTOLOGY O RDERABLES [facility] [place] [address] * Anaerobic Culture (09/06/2023 11:25 AM EDT) Anaerobic Culture No anaerobic organisms isolated [facility] Arm 09/06/2023 11:2 5 AM EDT 09/06/2023 12:21 PM EDT Comment:Left Arm Collection versus mass Narrative Resulting Agency Comment Spec In Lab James Champion DO MICROBIOLOGY - GENER AL ORDERABLES Performing Organization Address [facility] Co de Phone Number [facility] [place] [address] * Calcofluor White Stain (09/06/2023 11:25 AM EDT) Calcofluor Stain Calcofluor White Preparation: Negative [facility] Other 09/06/2023 11:2 5 AM EDT 09/06/2023 12:21 PM EDT Comment:Left Arm Collection versus Mass Narrative Resulting Agency Comment Spec In Lab James Champion DO MICROBIOLOGY - GENER AL ORDERABLES Performing Organization Address [facility] Co de Phone Number [facility] [place] [address] * Tissue culture (09/06/2023 11:25 AM EDT) Tissue Culture No growth [facility] Gram Stain Few Neutrophils seen No microorganisms seen. [facility] Arm 09/06/2023 11:2 5 AM EDT 09/06/2023 12:21 PM EDT Comment:Left Arm Collection versus mass Narrative Resulting Agency Comment Spec In Lab James Champion DO MICROBIOLOGY - GENER AL ORDERABLES Performing Organization Address City/[facility] Co de Phone Number [facility] [place] [address] * Fungus culture (09/06/2023 11:25 AM EDT) Fungus Culture No Fungus isolated [facility] Other 09/06/2023 11:2 5 AM EDT 09/06/2023 12:21 PM EDT Comment:Left Arm Collection versus Mass Narrative Resulting Agency Comment Spec In Lab James Champion DO MICROBIOLOGY - GENER AL ORDERABLES Performing Organization Address [facility] Co de Phone Number [facility] [place] [address] * Specimen to Pathology (09/06/2023 11:20 AM EDT) Only the most recent of2 resultswithin the time period is included. AP Specimen 09/06/2023 11:2 0 AM EDT 09/06/2023 11:20 AM EDT Narrative [facility] - 09/06/2023 11:20 AM EDT Specimen requisition ordered. ??Separate Pathology report to follow James Champion DO PATHOLOGY/CYTOLOGY O RDERABLES Performing Organization Address [facility] Co de Phone Number [facility] [place] [address] * Cytopathology Non-Gynecological (09/06/2023 10:41 AM EDT) AP Specimen 09/06/2023 10:4 1 AM EDT 09/06/2023 10:41 AM EDT Narrative [facility] - 09/06/2023 10:41 AM EDT Specimen requisition ordered. ??Separate Pathology report to follow Micha Pearl MD PATHOLOGY/CYTOLOGY O RDERABLES Performing Organization Address [facility] Co de Phone Number [facility] [place] [address] * Blood culture (09/06/2023 10:12 AM EDT) Blood Culture No growth at 5 days. [facility] Blood ANTECUBITAL REGION STRUCTURE / Unknown 09/06/2023 10:12 AM EDT 09/06/2023 10:31 AM EDT Comment:Peripheral culture Narrative Resulting Agency Comment Spec In Lab Adrianne Ramon MD MICROBIOLOGY - B LOOD ORDERABLES Performing Organization Address [facility]/ZIP Co de Phone Number [facility] [place] [address] * CBC (with Diff) (08/22/2023) White Blood Cell 8.12 Hemoglobin 13.2 Hematocrit 38.4 Platelet 199 ANC 6.02 Blood 08/22/2023 Historical Provider HEMATOLOGY ORDERA BLES * Hepatitis C Antibody (10/17/2022 11:45 AM EDT) Hepatitis C Antibody Negative Negative [facility] Blood 10/17/2022 11:4 5 AM EDT 10/17/2022 12:08 PM EDT Narrative Resulting Agency Comment Spec In Lab Adrianne Ramon MD CHEMISTRY ORDERA BLES [facility] [place] [address] from Last 3 Months or Most Recently Relevant to Health Maintenance Advance Directives Documents on File Type Date Recorded Patient Executive Account Manager Expl anation POLST/COLST (Order for Life Sustaining [...] Status decision made by: Patient Care Teams Md Allergy Immunology Relationship Specialty Start Date End Date Frederick Meade MD [address] [place] [address] PCP - General Family Medicine 11/29/17
--- OUTSIDE RECORDS SUMMARY | 2023-10-17 03:24 | XMS_ITS | Encounter Summary ---
Author Organization [facility] [place] [address] Care Team Providers Care Ceramic Mold Designer Name Role Phone Frederick Meade MD Primary Care Provider [phone] Reason for Visit * Treatment/Therapy Plan Authorization (Routine) - Closed Specialty Diagnoses / Procedures Referred By Contac t Referred To Contact Hematology and Oncology Diagnoses Diffuse large B-cell lymphoma of lymph nodes of multiple regions Adrianne Ramon MD [facility] [address] [place] [address] Stj Hem Onc Infusion [address] [place] [phone] Referral ID Status Reason Start Date Expiration Date Visits Re quested Visits Authorized [id number] Closed 09/12/2023 09/11/2024 99 99 Encounter Details Date Type Department Care Team (Late st Contact Info) Description 10/17/2023 1:30 PM EDT Infusion Hematology Oncology at [address] [phone] Social History Tobacco Use Types [...] EDT TH Visit (TeleHealth) Hematology/Oncology at [address] [phone] Adrianne Ramon MD [facility] [address] [place] [address] Yael Merlos APRN [facility] [address] [place] [address] 10/26/2023 9:00 AM EDT Office Visit Hematology [place] [address] Reynold Proctor MD [facility] [place] [address] 11/14/2023 9:30 AM EDT Office Visit Hematology/Oncology at [address] [phone] Adrianne Ramon MD [facility] [address] [place] [address] Yael Merlos APRN [facility] [place] [address] 11/14/2023 10:00 AM EDT Infusion Hematology Oncology at [address] [phone] documented as of this encounter Visit Diagnoses Not on filedocumented in this encounter Care Teams Ceramic Mold Designer Relationship Specialty Start Date End Date Frederick Meade MD [address] [place] [address] PCP - General Family Medicine 11/29/17 documented as of this encounter
--- OUTSIDE RECORDS SUMMARY | 2023-10-17 03:24 | XMS_ITS | Encounter Summary ---
Author Organization [facility] Address [address] [place] [address] Care Team Providers Care Yeast Fermentation Attendant Name Role Phone Unavailable Primary Care Provider Unavailabl e Encounter Details Date Type Department Care Team (Late st Contact Info) Description 01/17/2012 Results Only [facility] Laboratory Services - [facility] [address] [place], [place] [id number] Andreas Temple MD [address] [place] [address] Social History Tobacco Use Types [...] ? CHEO MORFIN ? Accession #: ? [id number] ? : ? 1950 (Age: 61) ??M [...] specimens (A) and (B) were reviewed. ??(Dr. Lagos)/[facility] Document reviewed and electronically signed by: DELROY [...] MD PATHOLOGY ORDERABLES Performing Organization Address City/State/[facility] Co de Phone Number [facility] [address] [place] [address] documented in this encounter Visit Diagnoses Not on filedocumented in this encounter
--- OUTSIDE RECORDS SUMMARY | 2023-10-17 03:24 | XMS_ITS ---
[place] [address] Care Team Providers Care Retail Service Specialist Name Role Phone Frederick Meade MD Primary Care Provider [phone] Active Problems Problem Noted Date Diagnosed Date Abnormal echocardiogram 11/20/2022 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 10/10/2022 Anemia, iron deficiency 08/21/2018 Gout 05/31/2017 Malignant neoplasm of prostate 09/01/2014 Current Oncology Plans [facility] AMB HEM LYMPHOMA (NHL) - riTUXimab (56 DAY MAINTENANCE)* Plan Start Date: 10/17/2023 Plan Provider:Adrianne Ramon MD Linked Problems 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 Treatment Medications Current Day (Day 1 , Cycle 1 - Planned for 10/17/2023) Next Day (Day 1, Cycle 2 - Planned for 11/14/2023) riTUXimab-pvvr (Ruxience)riTUXimab-pvvr (Ruxience) (2 mg/mL) in sodium chloride 0.9% infusion riTUXimab-pvvr (Ruxience) 700 mg in sodium chloride 0.9% 350 mL infusion riTUXimab-pvvr (Ruxience) 700 mg in sodium chloride 0.9% 350 mL infusion Mediport Administration (ALL SITES)* Plan Start Date:03/06/2023 Plan Provider:Adrianne Ramon MD Linked Problems 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 Past Plans ADULT TREATMENT Plan Name Start Date Discontinue Date Treatment Medications Discontinue Reason Plan Provider Cycles [facility] AMB HEM LYMPHOMA (HEMATOLOGI C MALIGNANCIE S) - riTUXimab (WEEKLY) 09/19/19 24 10/16/2023 riTUXimab-pvvr (Ruxience) (2 mg/mL) in sodium chloride 0.9% infusion Therapy Complete Adrianne Ramon MD 1 of 1 cycle started [facility] AMB HEM LYMPHOMA (NHL) - R-CHOP (21 DAY) 10/19/19 23 06/22/2023 cycloPHOSphamide (Cytoxan) in sodium chloride 0.9% 250 mL infusionDOXOrubicin (Adriamycin)riTUXimab -pvvr (Ruxience) (2 mg/mL) in sodium chloride 0.9% infusionvinCRIStine (Oncovin) in sodium chloride 0.9% 25 mL infusion Therapy Complete Adrianne Ramon MD 6 of 6 cycles started Radiation Treatments * No radiation treatments are documented for this patient in [facility]. Treatments may have been administered in [...] Potential late effects of treatment(s): Late and fci effects or radiation therapy to the prostate [...] Findings and based on age. Nutrition--Follow the [place] [employer] Guidelines that include the following: [...] Helpful websites www. cancer. gov National Cancer Bryant www.nccn.org National Comprehensive Cancer Network www.canceradvocacy.org National Coalition for Cancer Survivorship www.livestrong.org Livestrong Survivor Care www.acsn.org Cancer Survivors Network Anna Carr APRN- Radiation Oncology Adapted from [place] Society of Clinical Oncology 2008 Cancer Treatment Plan Summary Survivorship care provider contacts FINISHING MACHINE OPERATOR AUTOMATIC: Anna Carr
--- OUTSIDE RECORDS SUMMARY | 2023-10-17 03:24 | XMS_ITS | Encounter Summary ---
Author Organization [facility] Address [address] [place] [address] Care Team Providers Care Business Office Manager Name Role Phone Bobby Headley MD Primary Care Provider [phone] Encounter Details Date Type Department Care Team (Late st Contact Info) Description 09/01/2014 Results Only [facility] [phone] Tk Vergara MD [address] [place] [id number] Social History Tobacco Use Types Packs/Day Years [...] ? CHEO MORFIN ? Accession #: ? [id number] ? : ? 1950 (Age: 64) ??M [...] = 7 (60% 4) ? - Primary [place] pattern: ? Grade 4 ? - Secondary [place] pattern: ? Grade 3 ? - Total [...] D) and L base is a single plasnecia-white tissue core (1.7 cm in length x [...] 9:00 AM End of Report [facility] 09/01/2014 18:1 6 EDT 09/02/2014 18:16 EDT Tk Vergara MD PATHOLOGY ORDERABLES [facility] [address] [place] [address] documented in this encounter Visit Diagnoses Not on filedocumented in this encounter Care Teams Business Office Manager Relationship Specialty Start Date End Date Bobby Headley MD [address] [place] [address] [phone] PCP - General 01/18/12 documented as of this encounter
--- OUTSIDE RECORDS SUMMARY | 2023-10-17 03:24 | XMS_ITS | Encounter Summary ---
Author Organization [facility] Address [address] [place] [address] Care Team Providers Care Engineering Technical Writer Name Role Phone Bobby Headley MD Primary Care Provider [phone] Encounter Details Date Type Department Care Team (Late st Contact Info) Description 03/05/2020 Lab Requisition [facility] Pathology & Laboratory Medicine - [address] [id number] Outr Resulting Lab, Provider Social History Tobacco [...] 0.0 - 6.5 ng/mL 03/06/2020 0:00 EST [facility] Blood VENOUS BLOOD / Unknown 03/05/2020 7:50 EST 03/05/2020 17:28 EST Narrative [facility] - 03/06/2020 0:00 EST NOTE: Serum PSA concentration should not be interpreted as absolute evidence for the presence or absence of malignant disease. Assayed on Siemens ADVIA [employer] Intellectaur XPT using chemiluminescent technology.??Values obtained by using different assay methods cannot be used interchangeably. Provider Outr Resulting Lab CHEMISTRY & BLOOD GAS ORDERABLES [facility] [address] [place] [address] documented in this encounter Visit Diagnoses Not on filedocumented in this encounter Care Teams Engineering Technical Writer Relationship Specialty Start Date End Date Bobby Headley MD [address] [place] [address] [phone] PCP - General 01/18/12 documented as of this encounter
--- OUTSIDE RECORDS SUMMARY | 2023-10-17 03:24 | XMS_ITS | Encounter Summary ---
Author Organization [facility] Address [address] [place] [address] Care Team Providers Care Information Technology Associate Name Role Phone Bobby Headley MD Primary Care Provider [phone] Encounter Details Date Type Department Care Team (Late st Contact Info) Description 03/10/2019 Lab Requisition [facility] Pathology & Laboratory Medicine - [facility] [address] [place] [address] Unknown, Provider, Social History Tobacco Use Types [...] 0.0 - 6.5 ng/mL 03/11/2019 10:56 EST [facility] Blood VENOUS BLOOD / Unknown 03/10/2019 9:05 EST 03/10/2019 15:40 EST Narrative [facility] - 03/11/2019 10:56 EST NOTE: Serum PSA concentration should not be interpreted as absolute evidence for the presence or absence of malignant disease. Assayed on Siemens ADVIA Blooieaur XPT using chemiluminescent technology.??Values obtained by using different assay methods cannot be used interchangeably. Provider Unknown CHEMISTRY & BLOOD GA S ORDERABLES [facility] [address] [place] [address] documented in this encounter Visit Diagnoses Not on filedocumented in this encounter Care Teams Information Technology Associate Relationship Specialty Start Date End Date Bobby Headley MD [address] [place] [phone] PCP - General 01/18/12 documented as of this encounter
--- OUTSIDE RECORDS SUMMARY | 2023-10-17 03:24 | XMS_ITS | Encounter Summary ---
Author Organization [facility] Address [address] [place] [address] Care Team Providers Care Dopeman Name Role Phone Unavailable Primary Care Provider Unavailabl e Encounter Details Date Type Department Care Team (Late st Contact Info) Description 12/19/2006 Results Only [facility] conversion [address] [place] [address] Micha Pineda MD [address] [place] [phone] Social History Tobacco Use Types Packs/Day Years [...] ? CHEO MORFIN ? Accession #: ? [id number] ? : ? 1950 (Age: 56) ??M [...] specimen is entirely submitted as (C). ??(Dr. Echavarria)/[facility] End of Report [facility] 12/19/2006 12/19/2006 15: 40 EDT Micha Pineda MD PATHOLOGY ORDERABLES Performing Organization Address City/State/[facility] Co de Phone Number [facility] [address] [place] [address] documented in this encounter Visit Diagnoses Not on filedocumented in this encounter
--- OUTSIDE RECORDS SUMMARY | 2023-10-17 03:24 | XMS_ITS | Encounter Summary ---
Author Organization [facility] Address [address] [place] [address] Care Team Providers Care Retail Sales Lead Name Role Phone Bobby Headley MD Primary Care Provider [phone] Encounter Details Date Type Department Care Team (Latest Contact Info) Description 09/01/2014 13:19 EDT - 09/01/2014 23:59 EDT Hospital Encounter [address] [address] Unknown, Provider, Discharge Disposition: Home or Self Care Social History Tobacco Use Types Packs/Day Years Used Date Smoking Tobacco: Never Assessed Sex and Gender Information Value Date Recorded Sex Assigned at Not on file Gender Identity Not on file Sexual Orientation Not on file documented as of this encounter Discharge Disposition Disposition Code Departure Means Destination Home or Self [facility] documented in this encounter Plan of Treatment Not on file documented as of this encounter Visit Diagnoses Not on filedocumented in this encounter Care Teams Retail Sales Lead Relationship Specialty Start Date End Date Bobby Headley MD [address] [place] [id number] PCP - General 01/18/12 documented as of this encounter
--- OUTSIDE RECORDS SUMMARY | 2023-10-17 03:24 | XMS_ITS | Encounter Summary ---
Author Organization [facility] Address [address] [place] [address] Care Team Providers Care Spinning Doffer Name Role Phone Bobby Headley MD Primary Care Provider [phone] Encounter Details Date Type Department Care Team (Late st Contact Info) Description 10/06/2022 Lab Requisition [facility] Pathology & Laboratory Medicine - [facility] [address] [place] [address] Lg Ramírez MD [address] [place] [address] Generalized enlarged lymph nodes Social History [...] B-cell lymphoproliferative disorder. See comment. 12:09 EDT [facility] Comment The results of flow cytometry are those of involvement by a lymphoproliferative disorder of B-cell lineage expressing surface lambda light chains. The immunophenotypic profile is non-specific.. Cell size, as assessed by light scatter criteria, suggests a large B-cell lymphoma. Correlation of these findings with morphologic and clinical data is essential. Please refer to report [id number] for morphologic details. 3 12:09 [facility] Attestation By the signature below, the attending physician certifies that they have 1) personally conducted a gross and/or microscopic examination of the described specimen(s), and/or personally interpreted the results of laboratory testing of the described specimen(s), and 2) personally rendered or confirmed the above diagnosis. 3 12:09 [facility] at 1209 Clinical History 72 yo male with massive LAD (cervical/tongue/ret rophar.) 3 12:09 [facility] Description The specimen [...] CD4+ and CD8+ subsets represented. 3 12:09 [facility] Flow Markers CD10, CD19, CD20, CD3, CD4, CD45, CD5, CD8, [place], and Lambda 3 12:09 [facility] FDA Disclaimer This test was developed and its performance characteristics determined by the Department of Pathology and Laboratory Medicine, [facility], [place], [place] It has not been cleared or [...] complexity clinical laboratory testing. 3 12:09 EDT [facility] Sample Analyzed Date and Time 10/06/22 12:30 3 12:09 EDT [facility] Scanned Images 3 12:09 EDT [facility] Tissue STRUCTURE OF ROOT OF TONGUE / Unknown 10/05/2022 8:00 EDT 10/06/2022 9:32 EDT Lg Ramírez MD PATHOLOGY ORDERABLES [facility] [address] [place] [address] documented in this encounter Visit Diagnoses Diagnosis Generalized enlarged lymph nodes Enlargement of lymph nodes documented in this encounter Care Teams Spinning Doffer Relationship Specialty Start Date End Date Bobby Headley MD [address] [place] [id number] PCP - General 01/18/12 documented as of this encounter
--- OUTSIDE RECORDS SUMMARY | 2023-10-17 03:24 | XMS_ITS | Encounter Summary ---
Author Organization [facility] Address [address] [place] [address] Care Team Providers Care Igniter Capper Name Role Phone Bobby Headley MD Primary Care Provider [phone] Encounter Details Date Type Department Care Team (Late st Contact Info) Description 11/16/2022 Lab Requisition [facility] Pathology & Laboratory Medicine - [facility] [address] [place], [place] [address] Outr Resulting Lab, Provider Social History Tobacco [...] Salmonella PCR Negative Negative 11/16/2022 23:10 EDT [facility] Shigella/Enteroin vasive E. coli Negative Negative 11/16/2022 23:10 EDT [facility] HN LAB CAMPYLOBACTER PCR Negative Negative 11/16/2022 23:10 EDT [facility] Shiga Toxin PCR Negative Negative 23:10 EDT [facility] Feces SPECIMEN FROM RECTUM / Unknown 11/16/2022 0:35 EDT 11/16/2022 18:28 EDT Provider Outr Resulting Lab MICROBIOLOGY - GENERAL ORDERABLES [facility] [address] [place] [address] documented in this encounter Visit Diagnoses Not on filedocumented in this encounter Care Teams Igniter Capper Relationship Specialty Start Date End Date Bobby Headley MD [address] [place] [phone] PCP - General 01/18/12 documented as of this encounter
--- OUTSIDE RECORDS SUMMARY | 2023-10-17 03:24 | XMS_ITS | Encounter Summary ---
Author Organization [facility] Address [address] [place] [address] Care Team Providers Care Reaming Press Operator Name Role Phone Bobby Headley MD Primary Care Provider [phone] Encounter Details Date Type Department Care Team (Late st Contact Info) Description 10/03/[address] [facility] Pathology & Laboratory Medicine - [facility] [address] [place], [place] [address] Outr Resulting Lab, Provider Social History Tobacco [...] 610 - 1,616 mg/dL 10/04/2023 9:36 EDT [facility] IgA 92 85 - 499 mg/dL 10/04/2023 9:36 EDT [facility] IgM 118 35 - 242 mg/dL 10/04/2023 9:36 EDT [facility] Blood VENOUS BLOOD / Unknown 10/03/2023 9:10 EDT 10/03/2023 17:28 EDT Provider Outr Resulting Lab CHEMISTRY & BLOOD GAS ORDERABLES [facility] [address] [place] [address] documented in this encounter Visit Diagnoses Not on filedocumented in this encounter Care Teams Reaming Press Operator Relationship Specialty Start Date End Date Bobby Headley MD [address] [phone] PCP - General 01/18/12 documented as of this encounter
--- OUTSIDE RECORDS SUMMARY | 2023-10-17 03:24 | XMS_ITS | Encounter Summary ---
Author Organization [facility] Address [address] [place] [address] Care Team Providers Care Typing Pool Supervisor Name Role Phone Bobby Headley MD Primary Care Provider Encounter Details Date Type Department Care Team (Late st Contact Info) Description 09/19/2023 Lab Requisition [facility] Pathology & Laboratory Medicine - [address] [phone] Outr Resulting Lab, Provider Social History Tobacco [...] 610 - 1,616 mg/dL 09/20/2023 9:59 EDT [facility] IgA 100 85 - 499 mg/dL 09/20/2023 9:59 EDT [facility] IgM 123 35 - 242 mg/dL 09/20/2023 9:59 EDT [facility] Blood VENOUS BLOOD / Unknown 09/19/2023 7:16 EDT 09/19/2023 16:41 EDT Provider Outr Resulting Lab CHEMISTRY & BLOOD GAS ORDERABLES [facility] [address] [place] [address] documented in this encounter Visit Diagnoses Not on filedocumented in this encounter Care Teams Typing Pool Supervisor Relationship Specialty Start Date End Date Bobby Headley MD [address] [place] [address] [phone] PCP - General 01/18/12 documented as of this encounter
--- OUTSIDE RECORDS SUMMARY | 2023-10-17 03:24 | XMS_ITS | Referral Summary ---
Author Organization [facility] Address [address] [place] [address] Care Team Providers Care Starbucks Clerk Name Role Phone Bobby Headley MD Primary Care Provider Encounters Date Type Department Care Team Description 10/03/2023 Lab Requisition [facility] Pathology & Laboratory [address] [address] Outr Resulting Lab, Provider 09/26/2023 Lab Requisition [facility] Pathology & Laboratory [address] [address] Outr Resulting Lab, Provider 09/19/2023 Lab Requisition [facility] Pathology Laboratory [address] [address] Outr Resulting Lab, Provider from Last 3 [...] 610 - 1,616 mg/dL 10/04/2023 9:36 EDT [facility] IgA 92 85 - 499 mg/dL 10/04/2023 9:36 EDT [facility] IgM 118 35 - 242 mg/dL 10/04/2023 9:36 EDT [facility] Blood VENOUS BLOOD / Unknown 10/03/2023 9:10 EDT 10/03/2023 17:28 EDT Provider Outr Resulting Lab CHEMISTRY & BLOOD GAS ORDERABLES [facility] [address] [place] [address] from Last 3 Months Care Teams Starbucks Clerk Relationship Specialty Start Date End Date Bobby Headley MD [address] [place] [address] [phone] PCP - General 01/18/12
--- OUTSIDE RECORDS SUMMARY | 2023-10-17 03:25 | XMS_ITS | Encounter Summary ---
Author Organization [facility] Address [facility] [place] [address] Care Team Providers Care Air Quality Chemist Name Role Phone Frederick Meade MD Primary Care Provider [phone] Encounter Details Date Type Department Care Team (Late st Contact Info) Description 10/10/2023 Orders Only Hematology Oncology at [address] [phone] Tania Rosales, RN Diffuse large [...] EDT TH Visit (TeleHealth) Hematology/Oncology at [address] [phone] Adrianne Ramon MD [facility] HEMATOLOGY [place] [address] Yael Merlos, KARLA [facility] HEMATOLOGY [place] [address] 10/17/2023 1:30 PM EDT Infusion Hematology Oncology at [address] [phone] 10/26/2023 9:00 AM EDT Office Visit Hematology [place] [address] Reynold Proctor MD [facility] [place] [address] 11/14/2023 9:30 AM EDT Office Visit Hematology/Oncology at [address] [phone] Adrianne Ramon MD [facility] HEMATOLOGY [place] [address] Yael Merlos APRN [facility] DR HEMATOLOGY [place] [address] 11/14/2023 10:00 AM EDT Infusion Hematology Oncology at [address] [phone] documented as of this encounter Visit Diagnoses Diagnosis Diffuse large B-cell lymphoma of lymph nodes of multiple regions documented in this encounter Care Teams Air Quality Chemist Relationship Specialty Start Date End Date Frederick Meade MD [address] [place], [place] [address] PCP - General Family Medicine 11/29/17 documented as of this encounter
--- OUTSIDE RECORDS SUMMARY | 2023-10-17 03:25 | XMS_ITS | Encounter Summary ---
Author Organization [facility] Address [facility] [place] [address] Care Team Providers Care Information Systems Professor Name Role Phone Frederick Meade MD Primary Care Provider [phone] Encounter Details Date Type Department Care Team (Latest Contact Info) Description 09/26/2023 Unscheduled Encounter Hematology/Oncology at [address] [phone] Nimisha Hale, RD [facility] DR [place] [address] Diffuse large B-cell lymphoma of lymph nodes [...] EDT TH Visit (TeleHealth) Hematology/Oncology at [address] [phone] Adrianne Ramon MD [facility] DR [place] [address] Yael Merlos APRN [facility] [place] [address] 10/17/2023 1:30 PM EDT Infusion Hematology Oncology at [address] [phone] 10/26/2023 9:00 AM EDT Office Visit Hematology [place] [address] Reynold Proctor MD [facility] [place] [address] 11/14/2023 9:30 AM EDT Office Visit Hematology/Oncology at [address] [phone] Adrianne Ramon MD [facility] DR [place] [address] Yael Merlos, KARLA [facility] [place] [address] 11/14/2023 10:00 AM EDT Infusion Hematology Oncology at [address] [phone] documented as of this encounter Visit Diagnoses Diagnosis Diffuse large B-cell lymphoma of lymph nodes of multiple regions documented in this encounter Care Teams Information Systems Professor Relationship Specialty Start Date End Date Frederick Meade MD [address] [place] [address] PCP - General Family Medicine 11/29/17 documented as of this encounter
--- OUTSIDE RECORDS SUMMARY | 2023-10-17 03:25 | XMS_ITS | Encounter Summary ---
Author Organization [facility] [place] [address] Care Team Providers Care Jigger Operator Name Role Phone Frederick Meade MD Primary Care Provider [phone] Reason for Referral * Consultation (Routine) - Authorized Specialty Diagnoses / Procedures Referred By Paul bowen Referred To Contact Process Checker Diagnoses 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 Pre-op testing Micha Givens Jr., MD [facility] [address] [place] [address] Maria L Barnes MSW Referral ID Status Reason Start Date Expiration Date Visits Requested Visits Authorized [id number] Authorized Consult, Test & Treat 09/21/2023 09/20/2024 1 1 * Consultation (Routine) - Authorized Specialty Diagnoses / Procedures Referred By Paul bowen Referred To Contact Diagnoses 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 Pre-op testing Mihca Givens Jr., MD [facility] [address] [place] [address] [facility] [place] [address] Referral ID Status Reason Start Date Expiration Date Visits Requested Visits Authorized [id number] Authorized Continuity of Care 09/21/2023 09/20/2024 1 1 Encounter Details Date Type Department Care Team (Late st Contact Info) Description 09/21/2023 Orders Only Hematology and Oncology at [facility] [place] [address] Micha Givens Jr., MD [facility] HEMATOLOGY [place] [address] Diffuse large B-cell lymphoma of lymph nodes [...] EDT TH Visit (TeleHealth) Hematology/Oncology at [address] [phone] Adrianne Ramon MD [facility] HEMATOLOGY [place] [address] Yael Merlos APRN [facility] HEMATOLOGY [place] [address] 10/17/2023 1:30 PM EDT Infusion Hematology Oncology at [address] [phone] 10/26/2023 9:00 AM EDT Office Visit Hematology [place] [address] Reynold Proctor MD [facility] [place] [address] 11/14/2023 9:30 AM EDT Office Visit Hematology/Oncology at [address] [phone] Adrianne Ramon MD [facility] HEMATOLOGY [place] [address] Yael Merlos APRN [facility] HEMATOLOGY [place] [address] 11/14/2023 10:00 AM EDT Infusion Hematology Oncology at [address] [phone] Pending Results Name Type Priority Associated Diagnoses [...] PFT FEV1/FVC Pre-BD Z-Score -2.14 COMPAS PFT HTC89-04 Actual Pre-BD 1.11 % COMPAS PFT LES46-11 Predicted 2 % COMPAS PFT ZWQ81-31 Pre-BD % of Predicted 56 % COMPAS PFT JIE66-19 Pre-BD Z-Score -1.17 COMPAS PFT DLCO Hb [...] emphysema. Micha Givens Jr., MD [facility] * EKG 12 Lead (10/10/2023 2:40 PM EDT) Ventricular rate 59 BPM MUSE SYSTEM Atrial Rate 59 BPM MUSE SYSTEM P-R Interval 158 ms MUSE SYSTEM QRS Duration 88 ms MUSE SYSTEM Q-T Interval 394 ms MUSE SYSTEM QTC Calculated (Bezet) 390 ms MUSE SYSTEM Calculated P [place] 67 degrees MUSE SYSTEM Calculated R [place] 32 degrees MUSE SYSTEM INTERPRETATION Sinus bradycardia Nonspecific ST abnormality Abnormal ECG No previous ECGs available Confirmed by MD Valderrama David ([id number]) on 10/14/2023 10:09:54 PM MUSE SYSTEM 10/10/2023 2:40 PM EDT 10/14/2023 10:09 PM EDT Micha Givens Jr., MD ECG ORDERABLES MUSE SYSTEM * XR Chest PA & Lateral (Generic) (10/10/2023 2:21 PM EDT) [facility] WORKSTATION ID [id number] DH RAD Anatomical Region Laterality Modality Chest [...] who have questions please contact the health manager career that requested your imaging first. ? Electronically signed by: Davey Tolentino MD, [facility] ??([phone]), at 10/11/2023 11:50 AM Narrative 10/11/2023 11:50 [...] patients who have questions please contactthe health manager career that requested your imaging first. Micha Givens Jr., MD IMG DX ORDERABLES * (ABNORMAL) Iron and TIBC (09/21/2023 11:14 AM EDT) Iron 39(L) 45 - 160 mcg/dL [facility] TIBC 255 250 - 450 mcg/dL [facility] Iron Saturation 15(L) 20 - 50 % [facility] Blood 09/21/2023 11:1 4 AM EDT 09/21/2023 11:30 AM EDT Narrative Resulting Agency Comment Spec In Lab Micha Givens Jr., MD CHEMISTRY ORDERABLES Performing Organization Address City/[facility]/ZIP Co de Phone Number [facility] [place] [address] * (ABNORMAL) CRP, acute inflammation (09/21/2023 11:14 AM EDT) C-Reactive Protein 52.8(H) <=4.9 mg/L [facility] Blood 09/21/2023 11:1 4 AM EDT 09/21/2023 11:30 AM EDT Narrative Resulting Agency Comment Spec In Lab Micha Givens Jr., MD CHEMISTRY ORDERABLES Performing Organization Address [facility] Co de Phone Number [facility] [place] [address] * Ferritin (09/21/2023 11:14 AM EDT) Ferritin 393 31 - 409 ng/mL [facility] Comment: Please note that as of 01/24/2023, the reference intervals for Ferritin have been updated. Blood 09/21/2023 11:1 4 AM EDT 09/21/2023 11:30 AM EDT Narrative Resulting Agency Comment Spec In Lab Micha Givens Jr., MD CHEMISTRY ORDERABLES Performing Organization Address City/[facility]/ZIP Co de Phone Number [facility] [place] [address] * Uric acid (09/21/2023 11:14 AM EDT) Uric Acid 5.1 3.5 - 8.5 mg/dL [facility] Blood 09/21/2023 11:1 4 AM EDT 09/21/2023 11:30 AM EDT Narrative Resulting Agency Comment Spec In Lab Micha Givens Jr., MD CHEMISTRY ORDERABLES [facility] [place] [address] * Calcium, Ionized, Serum (09/21/2023 11:14 AM EDT) Ionized Calcium 1.25 1.15 - 1.33 mmol/L [facility] Comment: Note: Total bilirubin higher than 20 mg/dL may lead to falsely low ionized calcium. This test has not been cleared by the [place] FDA. Performance characteristics of this test were determined by [facility] in accordance with CLIA requirements. This laboratory is qualified under CLIA to perform high-complexity testing. Blood 09/21/2023 11:1 4 AM EDT 09/21/2023 11:30 AM EDT Narrative Resulting Agency Comment Spec In Lab Micha Givens Jr., MD CHEMISTRY ORDERABLES Performing Organization Address City/[facility]/ZIP Co de Phone Number [facility] [place] [address] * Toxoplasma Antibody, IgM (09/21/2023 11:14 AM EDT) Toxoplasma Antibody IgM Negative Negative [facility] Blood 09/21/2023 11:1 4 AM EDT 09/21/2023 1:04 PM EDT Narrative Resulting Agency Comment Spec In Lab Micha Givens Jr., MD IMMUNOLOGY ORDERABLE S [facility] [place] [address] * Toxoplasma Antibody, IgG (09/21/2023 11:14 AM EDT) Toxoplasma Antibody IgG Negative Negative [facility] Blood 09/21/2023 11:1 4 AM EDT 09/21/2023 1:04 PM EDT Narrative Resulting Agency Comment Spec In Lab Micha Givens Jr., MD IMMUNOLOGY ORDERABLE S Performing Organization Address City/[facility]/ZIP Co de Phone Number [facility] [place] [address] * PSA Screen (09/21/2023 11:14 AM EDT) PSA Screen 0.03 0.00 - 4.00 ng/mL [facility] Comment: PLEASE NOTE: [...] Jr., MD CHEMISTRY ORDERABLES Performing Organization Address City/[facility]/ZIP Co de Phone Number [facility] [place] [address] * Phosphorus (09/21/2023 11:14 AM EDT) Phosphorus 2.9 2.5 - 4.5 mg/dL [facility] Blood 09/21/2023 11:1 4 AM EDT 09/21/2023 11:30 AM EDT Narrative Resulting Agency Comment Spec In Lab Micha Givens Jr., MD CHEMISTRY ORDERABLES Performing Organization Address City/[facility]/ZIP Co de Phone Number [facility] [place] [address] * Magnesium (09/21/2023 11:14 AM EDT) Magnesium 0.80 0.69 - 1.07 mmol/L [facility] Blood 09/21/2023 11:1 4 AM EDT 09/21/2023 11:30 AM EDT Narrative Resulting Agency Comment Spec In Lab Micha Givens Jr., MD CHEMISTRY ORDERABLES Performing Organization Address City/[facility]/ZIP Co de Phone Number [facility] [place] [address] * Type and screen ([facility]CG[facility]/MARCELINA) (09/21/2023 11:14 AM EDT) ABORH Type O NEGATIVE [facility] Patient BB History Not Found [facility] Expires at 2359 on: 09/24/2023 [facility] Ab Screen Interp Negative [facility] Blood 09/21/2023 11:1 4 AM EDT 09/21/2023 11:14 AM EDT Narrative [facility] - 09/21/2023 11:14 AM EDT This Type and Screen result is only valid at the [facility] Resulting Agency Comment Spec In Lab Micha Givens Jr., MD BLOOD BANK LAB ORDER DUONG [facility] [place] [address] * Varicella zoster Antibody, IgG (09/21/2023 11:14 AM EDT) [facility] Varicella Zoster Antibody IgG Positive Positive [facility] Comment: A positive result for this assay is considered to be an indicator of positive immune status. Blood 09/21/2023 11:1 4 AM EDT 09/21/2023 1:04 PM EDT Narrative Resulting Agency Comment Spec In Lab Micha Givens Jr., MD IMMUNOLOGY ORDERABLE S [facility] [place] [address] * HSV 1 and 2 IgG Antibodies (09/21/2023 11:14 AM EDT) [facility] HSV Type 1 Ab, IgG Negative Negative [facility] HSV Type 2 Ab, IgG Negative Negative [facility] Blood 09/21/2023 11:1 4 AM EDT 09/21/2023 1:04 PM EDT Narrative Resulting Agency Comment Spec In Lab Micha Givens Jr., MD IMMUNOLOGY ORDERABLE S [facility] [place] [address] * (ABNORMAL) Alton-Dominguez Virus Antibodies (09/21/2023 11:14 AM EDT) EBV (VCA) IgG Ab Positive(A) Negative M BRISA [facility] EBV (VCA) IgM Ab Negative Negative MAR Y [facility] EBNA Antibodies Positive(A) Negative MA RY [facility] EBV Interpretation Past EBV infection. [facility] Comment: In most [...] Micha Givens Jr., MD IMMUNOLOGY ORDERABLE S [facility] [place] [address] * CMV Antibody, IgM (09/21/2023 11:14 AM EDT) CMV IgM Negative Negative [facility] Blood 09/21/2023 11:1 4 AM EDT 09/21/2023 1:04 PM EDT Narrative Resulting Agency Comment Spec In Lab Micha Givens Jr., MD IMMUNOLOGY ORDERABLE S [facility] [place] [address] * CMV Antibody, IgG (09/21/2023 11:14 AM EDT) CMV IgG Negative Negative [facility] Blood 09/21/2023 11:1 4 AM EDT 09/21/2023 1:04 PM EDT Narrative Resulting Agency Comment Spec In Lab Micha Givens Jr., MD IMMUNOLOGY ORDERABLE S Performing Organization Address City/[facility]/ZIP Co de Phone Number [facility] [place] [address] * Urinalysis with reflex Culture (09/21/2023 11:11 AM EDT) Glucose, Urine Dipstick Negative Negative mg/dL [facility] Protein, Urine Dipstick Negative Negative mg/dL [facility] Bilirubin, Urine Dipstick Negative Negative mg/dL [facility] Comment: Clinical correlation required for positive Urine Bilirubin results as false positive may occur with some drugs and drug related products. If a false positive is suspected a serum total bilirubin should be considered if clinically indicated. Urobilinogen, Urine Dipstick Normal Normal mg/dL [facility] pH, Urn (dipstick) 6.5 5.0 - 8.0 [facility] Blood, Urine Dipstick Negative Negative mg/dL [facility] Ketone, Urine Dipstick Negative Negative mg/dL [facility] Nitrite, Urine Dipstick Negative Negative [facility] Leukocytes, Urine Dipstick Negative Negative mcL [facility] Appearance, Urine Dipstick Clear Clear [facility] Specific [place] Urine Automated 1.009 1.005 - 1.030 [facility] Color, Urine Dipstick Yellow Yellow [facility] Reflex to Culture No [facility] Clean Catch Urine 09/21/2023 11:11 AM EDT 09/21/2023 11:33 AM EDT Narrative Resulting Agency Comment Spec In Lab Micha Givens Jr., MD URINE ORDERABLES Performing Organization Address City/[facility]/[place] [address] documented in this encounter Visit Diagnoses Diagnosis [...] transplant candidate Pre-op testing Preoperative examination, unspecified 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 Pre-op testing Preoperative examination, unspecified documented in this encounter Care Teams Jigger Operator Relationship Specialty Start Date End Date Frederick Meade MD [address] [place] [address] PCP - General Family Medicine 11/29/17 documented as of this encounter
--- OUTSIDE RECORDS SUMMARY | 2023-10-17 03:25 | XMS_ITS | Encounter Summary ---
Author Organization [facility] [place] [address] Care Team Providers Care Human Resources Records Clerk Name Role Phone Frederick Meade MD Primary Care Provider [phone] Encounter Details Date Type Department Care Team (Late st Contact Info) Description 09/20/2023 Orders Only [place] [address] Micha Givens Jr., MD [facility] [address] H[place] [address] Diffuse large B-cell lymphoma of lymph nodes [...] PM EDT TH Visit (TeleHealth) Hematology/Oncology at [address] [phone] Adrianne Ramon MD [facility] DR [place] [address] Yael Merlos, EXTRUSION TECHNICIAN [facility] [place] [address] 10/17/2023 1:30 PM EDT Infusion Hematology Oncology at [address] [phone] 10/26/2023 9:00 AM EDT Office Visit [place] [address] Reynold Proctor MD [facility] [place] [address] 11/14/2023 9:30 AM EDT Office Visit Hematology/Oncology at [address] [phone] Adrianne Ramon MD [facility] DR H[place]AT[place] [address] Yael Merlos APRN [facility] [place] [address] 11/14/2023 10:00 AM EDT Infusion Hematology Oncology at [address] [phone] documented as of this encounter Results * (ABNORMAL) Lactate Dehydrogenase (09/21/2023 11:14 AM EDT) Pathologist [facility] Lactate Dehydrogenase 426(H) 110 - 220 unit/L [facility] Blood 09/21/2023 11:1 4 AM EDT 09/21/2023 11:30 AM EDT Narrative Resulting Agency Comment Spec In Lab Micha Givens Jr., MD CHEMISTRY ORDERABLES [facility] [place] [address] * (ABNORMAL) Comprehensive metabolic panel (non-fasting) (09/21/2023 11:14 AM EDT) Glucose 326(H) 65 - 199 mg/dL [facility] Comment:Diabetes: >=200 mg/d L plus symptoms Blood Urea Nitrogen 26(H) 10 - 20 mg/dL [facility] Creatinine 1.16 0.80 - 1.50 mg/dL [facility] Sodium 138 135 - 145 mmol/L [facility] Potassium 4.0 3.5 - 5.0 mmol/L [facility] Comment: Please note: ??Patients with WBC >100,000 may have falsely elevated Potassium levels. ??For accurate Potassium quantification in these patients send serum separator tube (gold top) for subsequent determinations. ??Contact the Clinical Chemistry Laboratory if there are any questions. Chloride 103 98 - 107 mmol/L [facility] Carbon Dioxide 21(L) 22 - 31 mmol/L [facility] Anion Gap 14 5 - 15 mmol/L [facility] Calcium 9.5 8.5 - 10.5 mg/dL [facility] Protein, Total 6.3 6.1 - 8.0 g/dL [facility] Albumin 3.9 3.2 - 5.2 g/dL [facility] Aspartate Aminotransferase 54(H) 0 - 39 unit/L [facility] Alanine Aminotransferase 72(H) 0 - 55 unit/L [facility] Alkaline Phosphatase 202(H) 40 - 130 unit/L [facility] Bilirubin, Total 0.4 0.2 - 1.3 mg/dL [facility] Est Glomerular Filtration Rate 66 >=60 mL/min/1. 73 m?? [facility] Comment: This patient's estimated GFR [...] Lab Micha Givens Jr., MD CHEMISTRY ORDERABLES [facility] [place] [address] documented in this encounter Visit Diagnoses Diagnosis Diffuse large B-cell lymphoma of lymph nodes of multiple regions documented in this encounter Care Teams Human Resources Records Clerk Relationship Specialty Start Date End Date Frederick Meade MD [address] [place] [address] PCP - General Family Medicine 11/29/17 documented as of this encounter
--- OUTSIDE RECORDS SUMMARY | 2023-10-17 03:25 | XMS_ITS | Encounter Summary ---
Author Organization [facility] [place] [address] Care Team Providers Care Instrument Person Name Role Phone Frederick Meade MD Primary Care Provider [phone] [phone] Encounter Details Date Type Department Care Team (Late st Contact Info) Description 10/03/2023 10:00 AM EDT Office Visit Hematology/Oncology at [address] [phone] Adrianne Ramon MD [facility] DR HEMATOLOGY [place] [address] Yael Merlos APRN [facility] [address] [place] [address] Diffuse large B-cell lymphoma of lymph nodes [...] original note were not included. Hematology Clinic [facility] [place] [address] HEMATOLOGY PATIENT EVALUATION PROBLEM LIST: Patient Active [...] [facility] and when to [facility]. No beds so sent to [facility] [...] - unclear cause. - last COLO at [facility] was 01/17/2012. INTERIM HISTORY OF PRESENT ILLNESS: Seen today for start of Revlimid and rituximab. Met with Dr. Givens 2 weeks ago to discuss CAR-T celltherapy. He is interested in pursuing this. Had an echocardiogram the end of August with ejection fraction of 60%. Called in earlier in the week with constipation. Appreciate textile artist and recommendations. Cheo is here today for [...] and needle of cervical LN. FISH from [facility] No MYCrearrangement and no fusion of MYC [...] Enjoys reads, movies, race car, cards. Bowling [employer]. 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 Not a . ETOH: 1-3 beers per week Smoking: Quit 1985. Approximately 32-xqdc-skqt history Vaping or electronic cigarettes: denies Chewing [...] History Not Found T&S only valid at [facility] Recheck Order Order Placed ABOR[facility] [...] and BCL-2 protein (Double Expressor.) Flow cytometry ([id number]) supports this interpretation. FISH from [facility] No MYC rearrangement and no fusion of MYC and IGH was observed, CD3 (SP7, Thermo Scientific) Background T-cells CD20 (L26, [place]) diffusely positive in Neoplastic B-cells PAX-5 (1EW, Leica) diffusely positive in Neoplastic B-cells CD10 (SP67, [place]) Negative BCL-6 (G/191E/A8, [place]) Positive MUM-1 (MUM1p, Dako) Positive Myc (Y69, Abcam) Positive BCL-2 Oncoprotein (124, [place]) Positive Ki67 (MIB-1) (K2, Leica) Greater than 95% of cells in cycle Cyclin D1(SP4-R, [place]) Negative SAPPHIRE JOSE (DPQ6243-T, Leica) Negative. DIAGNOSTICS: [facility] ECHO EF 60% 01/25/23 ECHO after C#5 EF 50-55% 11/28/22 ECHO after C#2 EF 52% 11/06/22 ECHO after C#1 [facility] EF = 52% Interpretation Summary LV [...] 08/22/2023 left upper extremity ultrasound performed at [facility] Notable findings: In the left antecubital [...] undergo investigation with ultrasound. CT CAP at [facility], report and images have been [...] at least 1 month spent locally at [facility] and local hospital. Unfortunately, because ofhis age, [...] concepts, and the time it entails at [facility]. This would be a significant commitment for the patient and his family as they live [place] hours away from [facility]. They feel comfortable that they [...] patients were alive and relapse free. Finally [facility] September 19, 2016, Robb Hernandez et al, [...] LVEF at 50-55%. --asymptomatic --repeat echo at [facility] 1 year post completion of therapy [...] EDT TH Visit (TeleHealth) Hematology/Oncology at [address] [phone] Adrianne Ramon MD [facility] HEMATOLOGY [place] [address] Yael Merlos APRN [facility] HEMATOLOGY [place] [address] 10/17/2023 1:30 PM EDT Infusion Hematology Oncology at [address] [phone] 10/26/2023 9:00 AM EDT Office Visit Hematology [place] [address] Reynold Proctor MD [facility] [place] [address] 11/14/2023 9:30 AM EDT Office Visit Hematology/Oncology at [address] [phone] Adrianne Ramon MD [facility] HEMATOLOGY [place] [address] Yael Merlos APRN [facility] HEMATOLOGY [place] [address] 11/14/2023 10:00 AM EDT Infusion Hematology Oncology at [address] [phone] documented as of this encounter Procedures Procedure [...] 226 10/03/2023 Historical Provider MD JOAN GARCIA documented in this encounter Visit Diagnoses Diagnosis Diffuse large B-cell lymphoma of lymph nodes of multiple regions documented in this encounter Care Teams Instrument Person Relationship Specialty Start Date End Date Frederick Meade MD [address] [place] [address] PCP - General Family Medicine 11/29/17 documented as of this encounter
--- OUTSIDE RECORDS SUMMARY | 2023-10-17 03:25 | XMS_ITS | Encounter Summary ---
Author Organization Formerly [facility] Address [facility] [place] [address] Care Team Providers Care Legislative Analyst Name Role Phone Frederick Meade MD Primary Care Provider +1 -[phone] Encounter Details Date Type Department Care Team (Latest Contact Info) Description 10/10/2023 2:14 PM EDT - 10/10/2023 2:28 PM EDT Hospital Encounter XRay at [address] [place] [address] Micha Givens Jr., MD [facility] [place] [address] Diffuse large B-cell lymphoma of lymph nodes [...] EDT TH Visit (TeleHealth) Hematology/Oncology at [address] [address] Adrianne Ramon MD [facility] [place] [address] Yael Merlos APRN [facility] [place] [address] 10/17/2023 1:30 PM EDT Infusion Hematology Oncology at [address] [address] 10/26/2023 9:00 AM EDT Office Visit [place]ematology [place] [address] Reynold Proctor MD [facility] [place] [address] 11/14/2023 9:30 AM EDT Office Visit Hematology/Oncology at [address] [address] Adrianne Ramon MD [facility] [place] [address] Yael Merlos APRN [facility] [place] [address] 11/14/2023 10:00 AM EDT Infusion Hematology Oncology at [address] [address] documented as of this encounter Procedures Procedure Name Priority Date/Time Associated Diagnosis Comments XR CHEST PA AND LATERAL Routine 10/10/2023 2:21 PM EDT 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 Pre-op testing documented in this encounter Results * XR Chest PA & Lateral (Generic) (10/10/2023 2:21 PM EDT) WORKSTATION ID [id number] RAD Anatomical Region Laterality Modality Chest N/A [...] who have questions please contact the health specialist wound care that requested your imaging first. ? Narrative 10/11/2023 11:50 AM EDT EXAMINATION: XR [...] patients who have questions please contactthe health specialist wound care that requested your imaging first. Micha Givens Jr., MD IMG DX ORDERABLES documented in this encounter Visit Diagnoses Diagnosis 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 Pre-op testing Preoperative examination, unspecified documented in this encounter Care Teams Legislative Analyst Relationship Specialty Start Date End Date Frederick Meade MD [address] [place] [address] PCP - General Family Medicine 11/29/17 documented as of this encounter
--- OUTSIDE RECORDS SUMMARY | 2023-10-17 03:25 | XMS_ITS | Encounter Summary ---
Author Organization Formerly [facility] Address [facility] [place] [address] Care Team Providers Care Shoe Stock Associate Name Role Phone Frederick Meade MD Primary Care Provider +1 [phone] Reason for Visit * Reason Onset Date Comments Follow-up 10/04/2023 Re constipation Encounter Details Date Type Department Care Team (Late st Contact Info) Description 10/04/2023 Telephone Hematology/Oncology at [address] [address] Colt Ardon, RN Follow-up (Re [...] EDT TH Visit (TeleHealth) Hematology/Oncology at [address] [address] Adrianne Ramon MD [facility] HEMATOLOGY [place] [address] Yael Merlos, COURT ABSTRACTOR [facility] DR [place] [address] 10/17/2023 1:30 PM EDT Infusion Hematology Oncology at [address] [phone] 10/26/2023 9:00 AM EDT Office Visit Hematology [place] [address] Reynold Proctor MD [facility] [place] [address] 11/14/2023 9:30 AM EDT Office Visit Hematology/Oncology at [address] [phone] Adrianne Ramon MD [facility] DR [place] [address] Yael Merlos, KARLA [facility] DR [place] [address] 11/14/2023 10:00 AM EDT Infusion Hematology Oncology at [address] [phone] documented as of this encounter Visit Diagnoses Not on filedocumented in this encounter Care Teams Shoe Stock Associate Relationship Specialty Start Date End Date Frederick Meade MD [address] [place] [address] [address] [place] [address] PCP - General Family Medicine 11/29/17 documented as of this encounter
--- OUTSIDE RECORDS SUMMARY | 2023-10-17 03:25 | XMS_ITS | Encounter Summary ---
Author Organization [facility] Address [facility] [place] [address] Care Team Providers Care Mold Sheet Cleaner Name Role Phone Frederick Meade MD Primary Care Provider [phone] -[phone] Reason for Visit * Reason Comments Medication Refill Encounter Details Date Type Department Care Team (Late st Contact Info) Description 10/11/2023 Refill Hematology/Oncology at [address] [address] Adrianne Ramon MD [facility] DR [place] [address] Diffuse large B-cell lymphoma of lymph nodes [...] EDT TH Visit (TeleHealth) Hematology/Oncology at [address] [phone] Adrianne Ramon MD [facility] DR [place] [address] Yael Merlos APRN [facility] [place] [address] 10/17/2023 1:30 PM EDT Infusion Hematology Oncology at [address] [address] 10/26/2023 9:00 AM EDT Office Visit Hematology [place] [address] Reynold Proctor MD [facility] [place] [address] 11/14/2023 9:30 AM EDT Office Visit Hematology/Oncology at [address] [phone] Adrianne Ramon MD [facility] DR [place] [address] Yael Merlos APRN [facility] [place] [address] 11/14/2023 10:00 AM EDT Infusion Hematology Oncology at [address] [phone] documented as of this encounter Visit Diagnoses Diagnosis Diffuse large B-cell lymphoma of lymph nodes of multiple regions documented in this encounter Care Teams Mold Sheet Cleaner Relationship Specialty Start Date End Date Frederick Meade MD [address] [place] [address] PCP - General Family Medicine 11/29/17 documented as of this encounter
--- OUTSIDE RECORDS SUMMARY | 2023-10-17 03:25 | XMS_ITS | Encounter Summary ---
Author Organization [facility] [place] [address] Care Team Providers Care Laborer Adjustable Steel Joist Name Role Phone Frederick Meade MD Primary Care Provider +1 -[phone] Encounter Details Date Type Department Care Team [...] EDT TH Visit (TeleHealth) Hematology/Oncology at [address] [phone] Adrianne Ramon MD [facility] [place] [address] Yael Merlos APRN [facility] [place] [address] 10/17/2023 1:30 PM EDT Infusion Hematology Oncology at [address] [phone] 10/26/2023 9:00 AM EDT Office Visit Hematology [place] [address] Reynold Proctor MD [facility] [place] [address] 11/14/2023 9:30 AM EDT Office Visit Hematology/Oncology at [address] [phone] Adrianne Ramon MD [facility] [place] [address] Yael Merlos APRN [facility] [place] [address] 11/14/2023 10:00 AM EDT Infusion Hematology Oncology at [address] [phone] documented as of this encounter Visit Diagnoses Not on filedocumented in this encounter Care Teams Laborer Adjustable Steel Joist Relationship Specialty Start Date End Date Frederick Meade MD [address] [place], [place] [id number] PCP - General Family Medicine 11/29/17 documented as of this encounter
--- OUTSIDE RECORDS SUMMARY | 2023-10-17 03:25 | XMS_ITS | Encounter Summary ---
Author Organization [facility] [place] [address] Care Team Providers Care Roof Panel Hanger Name Role Phone Frederick Meade MD Primary Care Provider [phone] [phone] Encounter Details Date Type Department Care Team [...] EDT TH Visit (TeleHealth) Hematology/Oncology at [address] [phone] Adrianne Ramon MD [facility] [place] [address] Yael Merlos APRN [facility] [place] [address] 10/17/2023 1:30 PM EDT Infusion Hematology Oncology at [address] [phone] 10/26/2023 9:00 AM EDT Office Visit Hematology [place] [address] Reynold Proctor MD [facility] [place] [address] 11/14/2023 9:30 AM EDT Office Visit Hematology/Oncology at [address] [phone] Adrianne Ramon MD [facility] [place] [address] Yael Merlos APRN [facility] [place] [address] 11/14/2023 10:00 AM EDT Infusion Hematology Oncology at [address] [phone] documented as of this encounter Visit Diagnoses Not on filedocumented in this encounter Care Teams Roof Panel Hanger Relationship Specialty Start Date End Date Frederick Meade MD [address] [place], [place] [id number] PCP - General Family Medicine 11/29/17 documented as of this encounter
--- OUTSIDE RECORDS SUMMARY | 2023-10-17 03:25 | XMS_ITS | Encounter Summary ---
Author Organization [facility] Address [facility] [place] [address] Care Team Providers Care Tongue Lining Stitcher Name Role Phone Frederick Meade MD Primary Care Provider +1 -[phone] Reason for Visit * Reason Onset Date Comments Hyperglycemia 09/26/2023 Encounter Details Date Type Department Care Team (Late st Contact Info) Description 09/26/2023 Notes Only Hematology [place] [address] Yael Merlos APRN [facility] [place] [address] Hyperglycemia Social History Tobacco Use Types Packs/Day [...] this encounter Progress Notes * Yael Merlos, EMERGENCY RESPONSE COORDINATOR - 09/26/2023 11:21 AM EDT Cheo returns to clinic today for continued treatment with Revlimid and Rituxan. Today is day 8 ofcycle #1. He is scheduled to receive a dose of Rituxan today. [facility] noting a serum glucose of [...] in clinic. I have asked the clinical vending mechanic to stop by and review dietary recommendations. Yael Merlos, MSN, EMERGENCY RESPONSE COORDINATOR Nurse practitioner Section of Hematology documented in this encounter Plan of Treatment Upcoming Encounters Date Type Department Care Team (Late st Contact Info) Description 10/17/2023 1:00 PM EDT TH Visit (TeleHealth) Hematology/Oncology at [address] [phone] Adrianne Ramon MD [facility] [place] [address] Yael Merlos APRN [facility] [place] [address] 10/17/2023 1:30 PM EDT Infusion Hematology Oncology at [address] [address] 10/26/2023 9:00 AM EDT Office Visit Hematology [place] [address] Reynold Proctor MD [facility] [place] [address] 11/14/2023 9:30 AM EDT Office Visit Hematology/Oncology at [address] [phone] Adrianne Ramon MD [facility] HEMATOLOGY [place] [address] Yael Merlos APRN [facility] [place] [address] 11/14/2023 10:00 AM EDT Infusion Hematology Oncology at [address] [phone] documented as of this encounter Visit Diagnoses Not on filedocumented in this encounter Care Teams Tongue Lining Stitcher Relationship Specialty Start Date End Date Frederick Meade MD [address] [place] [address] [address] [place] [address] PCP - General Family Medicine 11/29/17 documented as of this encounter
--- OUTSIDE RECORDS SUMMARY | 2023-10-17 03:25 | XMS_ITS | Encounter Summary ---
Author Organization [facility] Address [facility] [place] [address] Care Team Providers Care Sterile Technician Name Role Phone Frederick Meade MD Primary Care Provider +1 -[phone] Reason for Visit * Reason Onset Date Comments Other 09/19/2023 Prednisone taper Encounter Details Date Type Department Care Team (Late st Contact Info) Description 09/19/2023 Telephone Hematology/Oncology at [address] [phone] Polly Orellana RN Other (Prednisone [...] EDT TH Visit (TeleHealth) Hematology/Oncology at [address] [phone] Adrianne Ramon MD [facility] HEMATOLOGY [place] [address] Yael Merlos APRN [facility] HEMATOLOGY [place] [address] 10/17/2023 1:30 PM EDT Infusion Hematology Oncology at [address] [phone] 10/26/2023 9:00 AM EDT Office Visit Hematology [place] [address] Reynold Proctor MD [facility] [place] [place] [address] 11/14/2023 9:30 AM EDT Office Visit Hematology/Oncology at [address] [phone] Adrianne Ramon MD [facility] DR HEMATOLOGY [place] [address] Yael Merlos APRN [facility] HEMATOLOGY [place] [address] 11/14/2023 10:00 AM EDT Infusion Hematology Oncology at [address] [phone] documented as of this encounter Visit Diagnoses Not on filedocumented in this encounter Care Teams Sterile Technician Relationship Specialty Start Date End Date Frederick Meade MD [address] [place] [address] PCP - General Family Medicine 11/29/17 documented as of this encounter
--- OUTSIDE RECORDS SUMMARY | 2023-10-17 03:25 | XMS_ITS | Encounter Summary ---
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 Pre-op testing Micha Givens Jr., MD [facility] DR [place] [address] Referral ID Status Reason Start Date Expiration Date Visits Requested Visits Authorized [id number] Authorized Test Only 09/26/2023 03/24/2024 1 1 Encounter Details Date Type Department Care Team (Late st Contact Info) Description 09/25/2023 Orders Only [place]ematology [place] [address] Micha Givens Jr., MD [facility] HEMATOLOGY [place] [address] Screening for colon cancer; Diffuse large B-cell [...] PM EDT TH Visit (TeleHealth) Hematology/Oncology at [address] [phone] Adrianne Ramon MD [facility] DR HEMATOLOGY [place] [address] Yael Merlos, PRODUCTION RECORDER [facility] HEMATOLOGY [place] [address] 10/17/2023 1:30 PM EDT Infusion Hematology Oncology at [address] [phone] 10/26/2023 9:00 AM EDT Office Visit [place]ematology [place] [address] Reynold Proctor MD [facility] [place] [address] 11/14/2023 9:30 AM EDT Office Visit Hematology/Oncology at [address] [phone] Adrianne Ramon MD [facility] DR HEMATOLOGY [place] [address] Yael Merlos APRN [facility] DR HEMATOLOGY [place] [address] 11/14/2023 10:00 AM EDT Infusion Hematology Oncology at [address] [phone] Scheduled Referrals Name Type Priority Associated Diagnoses [...] unspecified documented in this encounter Care Teams Lump Roller Relationship Specialty Start Date End Date Frederick Meade MD [address] [place] [address] [address] [place] [address] PCP - General Family Medicine 11/29/17 documented as of this encounter
--- OUTSIDE RECORDS SUMMARY | 2023-10-17 03:25 | XMS_ITS | Encounter Summary ---
Author Organization [facility] [place] [address] Care Team Providers Care Disability Examiner Name Role Phone Frederick Meade MD Primary Care Provider +1 -[phone] Encounter Details Date Type Department Care Team [...] PM EDT TH Visit (TeleHealth) Hematology/Oncology at [address] [phone] Adrianne Ramon MD [facility] [place] [address] Yael Merlos APRN [facility] [place] [address] 10/17/2023 1:30 PM EDT Infusion Hematology Oncology at [address] [phone] 10/26/2023 9:00 AM EDT Office Visit Hematology [place] [address] Reynold Proctor MD [facility] [place] [address] 11/14/2023 9:30 AM EDT Office Visit Hematology/Oncology at [address] [phone] Adrianne Ramon MD [facility] [place] [address] Yael Merlos APRN [facility] [place] [address] 11/14/2023 10:00 AM EDT Infusion Hematology Oncology at [address] [phone] documented as of this encounter Visit Diagnoses Not on filedocumented in this encounter Care Teams Disability Examiner Relationship Specialty Start Date End Date Frederick Meade MD [address] [place], [place] [id number] PCP - General Family Medicine 11/29/17 documented as of this encounter
--- OUTSIDE RECORDS SUMMARY | 2023-10-17 03:25 | XMS_ITS | Encounter Summary ---
Author Organization [facility] [address] Care Team Providers Care Commercial Banker Name Role Phone Frederick Meade MD Primary Care Provider +1 -[phone] Encounter Details Date Type Department Care Team (Latest Contact Info) Description 10/10/2023 1:04 PM EDT - 10/10/2023 2:13 PM EDT Hospital Encounter [place] [address] Discharge Disposition: Home Social History Tobacco Use [...] TEST DAILY 4 03/11/2018 ONETOUCH ULTR[facility] L[facility] TO [facility] DAILY 2 06/07/2018 [...] EDT TH Visit (TeleHealth) Hematology/Oncology at [address] [phone] Adrianne Ramon MD [facility] [place] [address] Yael Merlos APRN [facility] [place] [address] 10/17/2023 1:30 PM EDT Infusion Hematology Oncology at [address] [address] 10/26/2023 9:00 AM EDT Office Visit Hematology [place] [address] Reynold Proctor MD [facility] [place] [place] [address] 11/14/2023 9:30 AM EDT Office Visit Hematology/Oncology at [address] [phone] Adrianne Ramon MD [facility] DR [place] [address] Yael Merlos APRN [facility] [place] [address] 11/14/2023 10:00 AM EDT Infusion Hematology Oncology at [address] [phone] documented as of this encounter Visit Diagnoses Not on filedocumented in this encounter Care Teams Commercial Banker Relationship Specialty Start Date End Date Frederick Meade MD [address] [place] [address] PCP - General Family Medicine 11/29/17 documented as of this encounter
--- OUTSIDE RECORDS SUMMARY | 2023-10-17 03:25 | XMS_ITS | Encounter Summary ---
[place] [address] Care Team Providers Care Automotive Maintenance Technician Name Role Phone Frederick Meade MD Primary Care Provider +1 -[phone] Encounter Details Date Type Department Care Team (Latest Contact Info) Description 10/10/2023 2:29 PM EDT - 10/10/2023 2:47 PM EDT Hospital Encounter [place] [phone] Diffuse large B-cell lymphoma of lymph nodes [...] EDT TH Visit (TeleHealth) Hematology/Oncology at [address] [phone] Adrianne Ramon MD [facility] HEMATOLOGY [place] [address] Yael Merlos APRN [facility] HEMATOLOGY [place] [address] 10/17/2023 1:30 PM EDT Infusion Hematology Oncology at [address] [phone] 10/26/2023 9:00 AM EDT Office Visit Hematology [place] [address] Reynold Proctor MD [facility] [address] 11/14/2023 9:30 AM EDT Office Visit Hematology/Oncology at [address] [phone] Adrianne Ramon MD [facility] HEMATOLOGY [place] [address] Yael Merlos APRN [facility] HEMATOLOGY [place] [address] 11/14/2023 10:00 AM EDT Infusion Hematology Oncology at [address] [phone] documented as of this encounter Procedures Procedure Name Priority Date/Time Associated Diagnosis Comments EKG 12-LEAD Routine 10/10/2023 2:40 PM EDT 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 Pre-op testing documented in this encounter Results * EKG 12 Lead (10/10/2023 2:40 PM EDT) Ventricular rate 59 BPM MUSE SYSTEM Atrial Rate 59 BPM MUSE SYSTEM P-R Interval 158 ms MUSE SYSTEM QRS Duration 88 ms MUSE SYSTEM Q-T Interval 394 ms MUSE SYSTEM QTC Calculated (Bezet) 390 ms MUSE SYSTEM Calculated P [place] 67 degrees MUSE SYSTEM Calculated R [place] 32 degrees MUSE SYSTEM INTERPRETATION Sinus bradycardia Nonspecific ST abnormality Abnormal ECG No previous ECGs available Confirmed by MD Lavelle, James ([id number]) on 10/14/2023 10:09:54 PM MUSE SYSTEM 10/10/2023 2:40 PM EDT 10/14/2023 10:09 PM EDT Micha Givens Jr., MD ECG ORDERABLES MUSE SYSTEM documented in this encounter Visit Diagnoses Diagnosis 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 Pre-op testing Preoperative examination, unspecified documented in this encounter Care Teams Automotive Maintenance Technician Relationship Specialty Start Date End Date Frederick Meade MD [address] [place] [address] PCP - General Family Medicine 11/29/17 documented as of this encounter
--- OUTSIDE RECORDS SUMMARY | 2023-10-17 03:25 | XMS_ITS | Encounter Summary ---
[place] [address] Care Team Providers Care Marble Coper Name Role Phone Frederick Meade MD Primary Care Provider +1 [phone] Reason for Referral * Consultation (Routine) - Authorized Specialty Diagnoses / Procedures Referred By Paul bowen Referred To Contact Hematology and Oncology Diagnoses 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 Pre-op testing Micha Givens Jr., MD [facility] [address] HEMATOLOGY [place] [address] [facility] Hem Onc [address] [place] [address] Referral ID Status Reason Start Date Expiration Date Visits Requested Visits Authorized [id number] Authorized Consult, Test & Treat 10/12/2023 10/11/2024 1 1 * Diagnostic Test (Routine) - Authorized Specialty Diagnoses / Procedures Referred By Paul bowen Referred To Contact Radiology Diagnoses 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 Pre-op testing Procedures MRI Brain wwo Contrast (Generic) Micha Givens Jr., MD [facility] DR HEMATOLOGY [place] [address] [facility] [place] [address] Referral ID Status Reason Start Date Expiration Date Visits Requested Visits Authorized [id number] Authorized Specialty Service Requested 10/12/2023 04/12/2025 1 1 Encounter Details Date Type Department Care Team (Late st Contact Info) Description 10/11/2023 Orders Only Hematology and Oncology at [facility] [place] [address] Micha Givens Jr., MD [facility] HEMATOLOGY [place] [address] Diffuse large B-cell lymphoma of lymph nodes of multiple regions; Stem cell transplant candidate; Pre-op testing; Blood clotting disorder; Disorder of thyroid Social History Tobacco Use Types Packs/Day Years [...] EDT TH Visit (TeleHealth) Hematology/Oncology at [address] [address] Adrianne Ramon MD [facility] HEMATOLOGY [place] [address] Yael Merlos APRN [facility] HEMATOLOGY [place] [address] 10/17/2023 1:30 PM EDT Infusion Hematology Oncology at [address] [address] 10/26/2023 9:00 AM EDT Office Visit Hematology [place] [address] Reynold Proctor MD [facility] [place] [address] 11/14/2023 9:30 AM EDT Office Visit Hematology/Oncology at [address] [address] Adrianne Ramon MD [facility] HEMATOLOGY [place] [address] Yael Merlso APRN [facility] HEMATOLOG[place] [address] 11/14/2023 10:00 AM EDT Infusion Hematology Oncology at [address] [address] Scheduled Orders Name Type Priority Associated Diagnoses Orde r Schedule MRI Brain wwo Contrast (Generic) Imaging Routine 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 Pre-op testing Expected: 10/12/2023, Expires: 04/12/2024 Prothrombin Time Lab Routine 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 Pre-op testing Blood clotting disorder Expected: 10/12/2023, Expires: 10/10/2024 APTT Lab Routine 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 Pre-op testing Blood clotting disorder Expected: 10/12/2023, Expires: 10/10/2024 TSH Lab Routine 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 Pre-op testing Disorder of thyroid Expected: 10/12/2023, Expires: 10/10/2024 Scheduled Referrals Name Type Priority Associated Diagnoses Orde r Schedule Referral to Neuro-Oncology Outpatient Referral Routine 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 Pre-op testing Ordered: 10/12/2023 documented as of this encounter Visit Diagnoses Diagnosis 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 Pre-op testing Preoperative examination, unspecified Blood clotting disorder Other and unspecified coagulation defects Disorder of thyroid Unspecified disorder of thyroid documented in this encounter Care Teams Marble Coper Relationship Specialty Start Date End Date Frederick Meade MD [address] [place] [address] PCP - General Family Medicine 11/29/17 documented as of this encounter
--- OUTSIDE RECORDS SUMMARY | 2023-10-17 03:25 | XMS_ITS | Encounter Summary ---
Author Organization [facility] Address [facility] [place] [address] Care Team Providers Care Wine Blender Name Role Phone Frederick Meade MD Primary Care Provider [phone] [phone] Reason for Visit * Reason Comments Chemotherapy * Treatment/Therapy Plan Authorization (Routine) - Closed Specialty Diagnoses / Procedures Referred By Contac t Referred To Contact Hematology and Oncology Diagnoses Diffuse large B-cell lymphoma of lymph nodes of multiple regions Adrianne Ramon MD [facility] DR HEMATOLOGY [place] [address] [facility] Hem Onc Infusion [address] [place] [phone] Referral ID Status Reason Start Date Expiration Date Visits Re quested Visits Authorized [id number] Closed 09/12/2023 09/11/2024 99 99 Encounter Details Date Type Department Care Team (Late st Contact Info) Description 10/03/2023 10:30 AM EDT Infusion Hematology Oncology at [address] [phone] Diffuse large B-cell lymphoma of [...] complaints. OBJECTIVE LAB DATA: completed today at [facility] adequate for treatment Pre administration: Chemotherapy orders [...] EDT TH Visit (TeleHealth) Hematology/Oncology at [address] [phone] Adrianne Ramon MD [facility] HEMATOLOGY [place] [address] Yael Merlos APRN [facility] HEMATOLOGY [place] [address] 10/17/2023 1:30 PM EDT Infusion Hematology Oncology at [address] [phone] 10/26/2023 9:00 AM EDT Office Visit Hematology [place] [address] Reynold Proctor MD [facility] [place] [address] 11/14/2023 9:30 AM EDT Office Visit Hematology/Oncology at [address] [phone] Adrianne Ramon MD [facility] HEMATOLOGY [place] [address] Yael Merlos COMPOSITION TEACHER [facility] HEMATOLOGY [place] [address] 11/14/2023 10:00 AM EDT Infusion Hematology Oncology at [address] [phone] documented as of this encounter Visit Diagnoses [...] mL/hr documented in this encounter Care Teams Wine Blender Relationship Specialty Start Date End Date Frederick Meade MD [address] [place] [address] [address] [place] [address] PCP - General Family Medicine 11/29/17 documented as of this encounter
--- OUTSIDE RECORDS SUMMARY | 2023-10-17 03:25 | XMS_ITS | Encounter Summary ---
Author Organization [facility] Address [facility] [place] [address] Care Team Providers Care House Nurse Name Role Phone Frederick Meade MD Primary Care Provider [phone] [phone] Reason for Visit * Reason Comments Medication Refill Encounter Details Date Type Department Care Team (Late st Contact Info) Description 10/15/2023 Refill Hematology/Oncology at [address] [phone] Adrianne Ramon MD [facility] DR HEMATOLOGY [place] [address] Diffuse large B-cell lymphoma of lymph nodes [...] EDT TH Visit (TeleHealth) Hematology/Oncology at [address] [phone] Adrianne Ramon MD [facility] DR HEMATOLOGY [place] [address] Yael Merlos APRN [facility] HEMATOLOGY [place] [address] 10/17/2023 1:30 PM EDT Infusion Hematology Oncology at [address] [phone] 10/26/2023 9:00 AM EDT Office Visit Hematology [place] [address] Reynold Proctor MD [facility] [place] [address] 11/14/2023 9:30 AM EDT Office Visit Hematology/Oncology at [address] [phone] Adrianne Ramon MD [facility] DR HEMATOLOGY [place] [address] Yael Merlos APRN [facility] HEMATOLOGY [place] [address] 11/14/2023 10:00 AM EDT Infusion Hematology Oncology at [address] [phone] documented as of this encounter Visit Diagnoses Diagnosis Diffuse large B-cell lymphoma of lymph nodes of multiple regions documented in this encounter Care Teams House Nurse Relationship Specialty Start Date End Date Frederick Meade MD [address] [place] [address] PCP - General Family Medicine 11/29/17 documented as of this encounter
--- OUTSIDE RECORDS SUMMARY | 2023-10-17 03:25 | XMS_ITS | Encounter Summary ---
Author Organization [facility] [place] [address] Care Team Providers Care Consultant Nurse Name Role Phone Frederick Meade MD Primary Care Provider +1 -[phone] Reason for Visit * Reason Onset Date Comments Constipation 09/28/2023 Encounter Details Date Type Department Care Team (Late st Contact Info) Description 09/28/2023 Telephone Hematology/Oncology at [address] [phone] Colt Ardon RN Constipation Social [...] EDT TH Visit (TeleHealth) Hematology/Oncology at [address] [phone] Adrianne Ramon MD [facility] [place]AT[place] [address] Yael Merlos APRN [facility] [place] [address] 10/17/2023 1:30 PM EDT Infusion Hematology Oncology at [address] [phone] 10/26/2023 9:00 AM EDT Office Visit Hematology [place] [address] Reynold Proctor MD [facility] [place] [address] 11/14/2023 9:30 AM EDT Office Visit Hematology/Oncology at [address] [phone] Adrianne Ramon MD [facility] [place] [address] Yael Merlos [facility] [place]AT[place] [address] 11/14/2023 10:00 AM EDT Infusion Hematology Oncology at [address] [phone] documented as of this encounter Visit Diagnoses Not on filedocumented in this encounter Care Teams Consultant Nurse Relationship Specialty Start Date End Date Frederick Meade MD [address] [place] [address] [address] [place] [address] PCP - General Family Medicine 11/29/17 documented as of this encounter
--- OUTSIDE RECORDS SUMMARY | 2023-10-17 03:25 | XMS_ITS | Encounter Summary ---
Author Organization [facility] Address [facility] [place] [address] Care Team Providers Care Museum Tour Guide Name Role Phone Frederick Meaed MD Primary Care Provider +1 -[phone] Reason for Visit * Reason Comments Chemotherapy [id number] * Treatment/Therapy Plan Authorization (Routine) - Closed Specialty Diagnoses / Procedures Referred By Paul t Referred To Contact Hematology and Oncology Diagnoses Diffuse large B-cell lymphoma of lymph nodes of multiple regions Adrianne Ramon MD [facility] DR [place] [address] Stj Hem Onc Infusion [address] [place] [phone] Referral ID Status Reason Start Date Expiration Date Visits Re quested Visits Authorized [id number] Closed 09/12/2023 09/11/2024 99 99 Encounter Details Date Type Department Care Team (Late st Contact Info) Description 10/11/2023 8:30 AM EDT Infusion Hematology Oncology at [address] [phone] Diffuse large B-cell lymphoma of [...] Pulse 58 10/11/2023 8:32 AM EDT Temperature - - Respiratory Rate 18 10/11/2023 8:32 AM EDT Oxygen Saturation 100% 10/11/2023 8:32 AM EDT Inhaled Oxygen Concentration - - Weight 87.3 kg (192 lb 6.4 oz) 10/11/2023 8:32 A M EDT Height 170.1 cm (5' 6.97) 10/11/2023 8:32 AM ED T Body Mass Index 30.16 10/11/2023 8:32 AM EDT documented in this encounter Progress Notes * Ioana Jules RN - 10/11/2023 8:30 AM EDT Images from the original note were not included. INFUSION THERAPY ADMINISTRATION NOTES DIAGNOSIS: DLBCL CYCLE #: [id number] REASON FOR VISIT: Rituxan SUBJECTIVE Cheo offers no complaints. OBJECTIVE LAB DATA: completed today at [facility] adequate for treatment IV ACCESS: PIV Pre administration: Chemotherapy orders independently verified for drug name, route, and dosage per patient's height, weight and BSA by Ioana Jules RN and pharmacist onsite. REACTIONS (DESCRIPTION, TIME, [...] EDT TH Visit (TeleHealth) Hematology/Oncology at [address] [phone] Adrianne Ramon MD [facility] [place] [address] Yael Merlos APRN [facility] [place] [address] 10/17/2023 1:30 PM EDT Infusion Hematology Oncology at [address] [phone] 10/26/2023 9:00 AM EDT Office Visit Hematology [place] [address] Reynold Proctor MD [facility] [place] [address] 11/14/2023 9:30 AM EDT Office Visit Hematology/Oncology at [address] [phone] Adrianne Ramon MD [facility] HEMATOLOGY [place] [address] Yael Merlos APRN [facility] [place] [address] 11/14/2023 10:00 AM EDT Infusion Hematology Oncology at [address] [phone] documented as of this encounter Visit Diagnoses Diagnosis Diffuse large B-cell lymphoma of lymph nodes of multiple regions documented in this encounter Administered Medications Inactive Administered Medications - up to 3 most recent administrations Medication Order MAR Action Action Date Dose Rate Site acetaminophen (Tylenol) tablet 650 mg 650 mg, Oral, ONCE, 1 dose, On Jadyn 10/11/23 at 0915, Administer prior to riTUXimab., Routine Given 10/11/2023 10:02 AM EDT 650 mg dexAMETHasone (Decadron) tablet 10 mg 10 mg, Oral, ONCE, 1 dose, On Jadyn 10/11/23 at 0945, Administer prior to riTUXimab, Routine Given 10/11/2023 10:02 AM EDT 10 mg diphenhydrAMINE (Benadryl) capsule 50 mg 50 mg, Oral, ONCE, 1 dose, On Jadyn 10/11/23 at 0915, Administer prior to riTUXimab, Routine Given 10/11/2023 10:02 AM EDT 50 mg riTUXimab-pvvr (Ruxience) 800 mg in sodium chloride 0.9% 400 mL infusion 800 mg (rounded from 780 mg = 375 mg/m2/dose ? 2.08 m2 Treatment Plan BSA from Recorded weight), Intravenous, ONCE, 1 dose, On Jadyn 10/11/23 at 1015, Administer Per Protocol, Is this product being used for treatment of malignant indication? Yes, Patient is a candidate for rapid infusion riTUXimab? No New Bag 10/11/2023 10:40 AM EDT 800 mg sodium chloride 0.9% infusion 150 mL/hr, Intravenous, CONTINUOUS, Starting on Jadyn 10/11/23 at 0915, Until Jadyn 10/11/23 at 1505 New Bag 10/11/2023 10:02 AM EDT 150 mL/hr 150 mL/hr documented in this encounter Care Teams Museum Tour Guide Relationship Specialty Start Date End Date Frederick Meade MD [address] [place] [address] PCP - General Family Medicine 11/29/17 documented as of this encounter
--- OUTSIDE RECORDS SUMMARY | 2023-10-17 03:25 | XMS_ITS | Encounter Summary ---
Author Organization [facility] Address [place] [id number] Care Team Providers Care Chemical Engineering Technologist Name Role Phone Frederick Meade MD Primary Care Provider [phone] [phone] Reason for Visit * Consultation (Routine) - Authorized Specialty Diagnoses / Procedures Referred By Contdamir t Referred To Contact Diagnoses 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 Pre-op testing Micha Givens Jr., MD [facility] DR HEMATOLOGY [place] [address] [facility] [place] [address] Referral ID Status Reason Start Date Expiration Date Visits Requested Visits Authorized [id number] Authorized Continuity of Care 09/21/2023 09/20/2024 1 1 Encounter Details Date Type Department Care Team (Late st Contact Info) Description 09/25/2023 10:00 AM EDT Telephone Hematology [place] [phone] Elva Sutherland RD [facility] [place] [address] Social History Tobacco Use Types Packs/Day Years [...] Sutherland, RD - 09/25/2023 9:01 AM EDT [facility] BMT Pretransplant NutritionTeaching Pt: Cheo Freire [...] cheeses including brie, camembert, feta, cheatham's -- Vincentian style soft cheeses including queso francisco, and queso fresco -- Canadian containing chili pepper or other uncooked vegetables [...] use well water include filtration, distillation, boiling --https://www.cdc.gov/healthywater/drinking/icom-qhvaq-onkymxrct/household_water _treatment.html --ht tps://www.cdc.gov/healthywater/pdf/drinking/household_water_treatment.pdf --https://www.cdc.gov/healthywater/drinking/lgnsrkgb-czfwk-opl.html#how_bwa -Well water must be boiled for 1 [...] at future lab draw. Educational material provided: [facility]'s Food Safety Guidelines for the Patient with [...] EDT TH Visit (TeleHealth) Hematology/Oncology at [address] [phone] Adrianne Ramon MD [facility] HEMATOLOGY [place] [address] Yael Merlos APRN [facility] HEMATOLOGY [place] [address] 10/17/2023 1:30 PM EDT Infusion Hematology Oncology at [address] [phone] 10/26/2023 9:00 AM EDT Office Visit Hematology [place] [address] Reynold Proctor MD [facility] [place] [address] 11/14/2023 9:30 AM EDT Office Visit Hematology/Oncology at [address] [phone] Adrianne Ramon MD [facility] HEMATOLOGY [place] [address] Yael Merlos PATIENT ACCOUNT REPRESENTATIVE [facility] HEMATOLOGY [place] [address] 11/14/2023 10:00 AM EDT Infusion Hematology Oncology at [address] [phone] documented as of this encounter Visit Diagnoses Not on filedocumented in this encounter Care Teams Chemical Engineering Technologist Relationship Specialty Start Date End Date Frederick Meade MD [address] [place] [address] [address] [place] [address] PCP - General Family Medicine 11/29/17 documented as of this encounter
--- OUTSIDE RECORDS SUMMARY | 2023-10-17 03:25 | XMS_ITS | Encounter Summary ---
Author Organization Replaced By [facility] [place] [address] Care Team Providers Care Fish Header Name Role Phone Frederick Meade MD Primary Care Provider [phone] [phone] Reason for Visit * Reason Comments Advice Only * Consultation (Routine) - Closed Specialty Diagnoses / Procedures Referred By Contac t Referred To Contact Hematology and Oncology Diagnoses Diffuse large B-cell lymphoma of lymph nodes of multiple regions Adrianne Ramon MD [facility] [address] [place] [address] [facility] Hem Onc [address] [place] [address] Referral ID Status Reason Start Date Expiration Date V isits Requested Visits Authorized [id number] Closed Specialty Service Requested 09/12/2023 09/11/2024 1 1 Encounter Details Date Type Department Care Team (Late st Contact Info) Description 09/21/2023 9:30 AM EDT Office Visit Hematology [place] [address] Micha Givens Jr., MD [facility] [address] [place] [address] Diffuse large B-cell lymphoma of lymph nodes [...] Diffuse Large [facility] Chimeric Antigen Receptor (CAR) T-cell Therapy consideration. The patient comes to clinic with his , Claritza, and daughter, Sarath. HISTORY OF PRESENT ILLNESS: Th patient is a 73 year old male initially referred to Hematology in Sep 2022 by [facility] after presentation with a 4 week h/o of sinus swelling and then cervical adenopathy, such that he could not breathe normally. He was treated for presumed infection (presumed acute retropharyngeal abscess), [facility], with 2 biopsies done, one of the tonsil, and 1 needle biopsy of a right post cervical lymph node, and prednisone started, with noted response. Pathology from [facility] was c/w Large B-cell lymphoma (Double expresser). [...] and needle of cervical LN. 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 Not a . ETOH: Occasional (few beers per week) Smoking: Quit 1985. Approximately 50-jzdz-fpzs history HIPPA Contact Permission: Claritza and Cheo. [...] History Not Found T&S only valid at [facility] AB[facility]H Recheck Order Order Placed ABORH [...] See comment. Electronically signed by: Dana OCASIO, [facility] Verified: 09/10/2023 15:05 Hematopathologist Performed at: -[facility]ology, [place] [address] Key Holder: Katherine Lopez MD, FCAP, CLIA Certificate: [id number] DISCUSSION The T-lymphocytes , B- lymphocytes and [...] and BCL-2 protein (Double Expressor.) Flow cytometry ([id number]) supports this interpretation. FISH from [place] No MYC rearrangement and no fusion of MYC and IGH was observed, CD3 (SP7, [employer]) Background T-cells CD20 (L26, [place]) diffusely positive in Neoplastic B-cells PAX-5 (1EW, [employer]) diffusely positive in Neoplastic B-cells CD10 (SP67, [place]) Negative BCL-6 (G/191E/A8, [place]) Positive MUM-1 (MUM1p, [employer]) Positive Myc (Y69, [employer]) Positive BCL-2 Oncoprotein (124, [place]) Positive Ki67 (MIB-1) (K2, [employer]) Greater than 95% of cells in cycle Cyclin D1(SP4-R, [place]) Negative SAPPHIRE JOSE ([id number], [employer]) Negative. DIAGNOSTICS: 01/25/23 ECHO after C#5 [...] EDT TH Visit (TeleHealth) Hematology/Oncology at [address] [phone] Adrianne Ramon MD [facility] HEMATOLOGY [place] [address] Yael Merlos APRN [facility] HEMATOLOGY [place] [address] 10/17/2023 1:30 PM EDT Infusion Hematology Oncology at [address] [phone] 10/26/2023 9:00 AM EDT Office Visit Hematology [place] [address] Reynold Proctor MD [facility] [address] 11/14/2023 9:30 AM EDT Office Visit Hematology/Oncology at [address] [phone] Adrianne Ramon MD [facility] HEMATOLOGY [place] [address] Yael Merlos APRN [facility] [place] [address] 11/14/2023 10:00 AM EDT Infusion Hematology Oncology at [address] [phone] Scheduled Referrals Name Type Priority Associated Diagnoses [...] type documented in this encounter Care Teams Fish Header Relationship Specialty Start Date End Date Frederick Meade MD [address] [place] [address] PCP - General Family Medicine 11/29/17 documented as of this encounter
--- OUTSIDE RECORDS SUMMARY | 2023-10-17 03:25 | XMS_ITS | Encounter Summary ---
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 [...] TEST DAILY 4 03/11/2018 ONETOUCH ULTRASOFT LANCETS [facility] USE TO TEST DAILY 2 06/07/2018 colchicine [...] EDT TH Visit (TeleHealth) Hematology/Oncology at [address] [phone] Adrianne Ramon MD [facility] HEMATOLOGY [place] [address] Yael Merlos APRN [facility] HEMATOLOGY [place] [address] 10/17/2023 1:30 PM EDT Infusion Hematology Oncology at [address] [phone] 10/26/2023 9:00 AM EDT Office Visit Hematology [place] [phone] Reynold Proctor MD [facility] [place] [address] 11/14/2023 9:30 AM EDT Office Visit Hematology/Oncology at [address] [phone] Adrianne Ramon MD [facility] HEMATOLOGY [place] [address] Yael Merlos APRN [facility] HEMATOLOGY [place] [address] 11/14/2023 10:00 AM EDT Infusion Hematology Oncology at [address] [phone] Pending Results Name Type Priority Associated Diagnoses [...] nodes of multiple regions TYPE AND SCREEN ([facility]/CGP/MARCELINA) Routine 09/21/2023 11:14 AM EDT Diffuse large [...] BANK LAB ORDER DUONG Performing Organization Address City/[facility]/ZIP Co de Phone Number [facility] [place] [address] * Direct antiglobulin test (09/21/2023 11:14 AM EDT) WILLIAN Poly Negative [facility] 09/21/2023 11:1 4 AM EDT 09/21/2023 11:14 AM EDT Micha Givens Jr., MD BLOOD BANK LAB ORDER DUONG Performing Organization Address City/[facility] Co de Phone Number [facility] [place] [address] * Type and Screen Validity (09/21/2023 11:14 AM EDT) T&S only valid at [facility] LABORATORY Comment:This Type and Screen result is only valid at the [facility] Hospital Blood 09/21/2023 11:1 4 AM EDT 09/21/2023 11:31 AM EDT Narrative Resulting Agency Comment Spec In Lab Micha Givens Jr., MD BLOOD BANK LAB ORDER DUONG Performing Organization Address City/[facility]/ZIP Co de Phone Number [facility] [place] [address] * ABORH Recheck Status (09/21/2023 11:14 AM EDT) ABORH Recheck Order Order Placed [facility] ABORH Type Recheck not performed [facility] Blood 09/21/2023 11:1 4 AM EDT 09/21/2023 11:31 AM EDT Narrative Resulting Agency Comment Spec In Lab Micha Givens Jr., MD BLOOD BANK LAB ORDER DUONG [facility] [place] [address] * (ABNORMAL) Differential, Automated (09/21/2023 11:14 AM EDT) Neutrophil % 90.8 % [facility] Neutrophil Absolute 6.59(H) 1.70 - 6.10 x10(3)/ L [facility] Lymph % 5.1 % [facility] Lymphocytes Abs 0.4(L) 0.9 - 3.2 x10(3)/ L [facility] Monocyte % 3.0 % [facility] Monocyte Abs 0.2(L) 0.3 - 0.9 x10(3)/ L [facility] Eos % 0.4 % [facility] Eosinophils Abs 0.0 0.0 - 0.4 x10(3)/[facility] LABORATORY Basophil % 0.1 % [facility] Baso Absolute 0.0 0.0 - [...] Absolute 0.04 0.00 - 0.04 x10(3)/ L [facility] Blood 09/21/2023 11:1 4 AM EDT 09/21/2023 11:30 AM EDT Narrative Resulting Agency Comment Spec In Lab Micha Givens Jr., MD HEMATOLOGY ORDERABLE S [facility] [place] [address] * (ABNORMAL) Hemogram (09/21/2023 11:14 AM EDT) White Blood Cell 7.3 4.0 - 9.5 x10(3)/mc L [facility] Red Blood Cell 4.20(L) 4.58 - 5.54 x10(6)/mc L [facility] Hemoglobin 12.3(L) 13.7 - [...] Platelet 152 145 - 357 x10(3)/mc L [facility] RDW Standard Deviation 48.4(H) 36.0 - 45.0 fL [facility] RDW coefficient of variation 14.5(H) 11.4 - 13.8 % [facility] Mean Platelet Volume 11.5 7.6 - 12.9 fL [facility] NRBC% auto 0.0 % [facility] NRBC Absolute 0.000 0.000 - 0.000 x10(3)/mc L [facility] Blood 09/21/2023 11:1 4 AM EDT 09/21/2023 11:30 AM EDT Narrative Resulting Agency Comment Spec In Lab Micha Givens Jr., MD HEMATOLOGY ORDERABLE S [facility] [place] [address] * Hemoglobin S Screen (09/21/2023 11:14 AM EDT) HGB S Screen Screen Negative Screen Negative [facility] Blood 09/21/2023 11:1 4 AM EDT 09/21/2023 11:30 AM EDT Narrative Resulting Agency Comment Spec In Lab Micha Givens Jr., MD HEMATOLOGY ORDERABLE S Performing Organization Address [facility]/ZIP Co de Phone Number [facility] [place] [address] * Type and screen ([facility]/CGP/MARCELINA) (09/21/2023 11:14 AM EDT) ABORH Type O NEGATIVE [facility] Patient BB History Not Found [facility] Expires at [id number] on: 09/24/2023 [facility] Ab Screen Interp Negative [facility] Blood 09/21/2023 11:1 4 AM EDT 09/21/2023 11:14 AM EDT Narrative [facility] - 09/21/2023 11:14 AM EDT This Type and Screen result is only valid at the [facility] Hospital Resulting Agency Comment Spec In Lab Micha Givens Jr., MD BLOOD BANK LAB ORDER DUONG Performing Organization Address [facility] Co de Phone Number [facility] [place] [address] * (ABNORMAL) Iron and TIBC (09/21/2023 11:14 [...] Jr., MD CHEMISTRY ORDERABLES Performing Organization Address City/[facility]/ZIP Co de Phone Number [facility] [place] [address] * (ABNORMAL) CRP, acute inflammation (09/21/2023 11:14 AM EDT) C-Reactive Protein 52.8(H) <=4.9 mg/L [facility] Blood 09/21/2023 11:1 4 AM EDT 09/21/2023 11:30 AM EDT Narrative Resulting Agency Comment Spec In Lab Micha Givens Jr., MD CHEMISTRY ORDERABLES Performing Organization Address [facility] Co de Phone Number [facility] [place] [address] * Ferritin (09/21/2023 11:14 AM EDT) Ferritin 393 31 - 409 ng/mL [facility] Comment: Please note that as of 01/24/2023, the reference intervals for Ferritin have been updated. Blood 09/21/2023 11:1 4 AM EDT 09/21/2023 11:30 AM EDT Narrative Resulting Agency Comment Spec In Lab Micha Givens Jr., MD CHEMISTRY ORDERABLES Performing Organization Address City/[facility]/ZIP Co de Phone Number [facility] [place] [address] * Uric acid (09/21/2023 11:14 AM EDT) Uric Acid 5.1 3.5 - 8.5 mg/dL [facility] Blood 09/21/2023 11:1 4 AM EDT 09/21/2023 11:30 AM EDT Narrative Resulting Agency Comment Spec In Lab Micha Givens Jr., MD CHEMISTRY ORDERABLES Performing Organization Address City/[facility]/ZIP Co de Phone Number [facility] [place] [address] * Calcium, Ionized, Serum (09/21/2023 11:14 AM EDT) Ionized Calcium 1.25 1.15 - 1.33 mmol/L [facility] Comment: Note: Total bilirubin higher than 20 mg/dL may lead to falsely low ionized calcium. This test has not been cleared by the [place] FDA. Performance characteristics of this test were determined by [facility] in accordance with CLIA requirements. This laboratory is qualified under CLIA to perform high-complexity testing. Blood 09/21/2023 11:1 4 AM EDT 09/21/2023 11:30 AM EDT Narrative Resulting Agency Comment Spec In Lab Micha Givens Jr., MD CHEMISTRY ORDERABLES Performing Organization Address City/[facility]/ZIP Co de Phone Number [facility] [place] [address] * Toxoplasma Antibody, IgM (09/21/2023 11:14 AM EDT) Toxoplasma Antibody IgM Negative Negative [facility] Blood 09/21/2023 11:1 4 AM EDT 09/21/2023 1:04 PM EDT Narrative Resulting Agency Comment Spec In Lab Micha Givens Jr., MD IMMUNOLOGY ORDERABLE S [facility] [place] [address] * Toxoplasma Antibody, IgG (09/21/2023 11:14 AM EDT) Toxoplasma Antibody IgG Negative Negative [facility] Blood 09/21/2023 11:1 4 AM EDT 09/21/2023 1:04 PM EDT Narrative Resulting Agency Comment Spec In Lab Micha Givnes Jr., MD IMMUNOLOGY ORDERABLE S Performing Organization Address City/[facility]/ZIP Co de Phone Number [facility] [place] [address] * PSA Screen (09/21/2023 11:14 AM EDT) [...] Jr., MD CHEMISTRY ORDERABLES Performing Organization Address City/[facility] Co de Phone Number [facility] [place] [address] * Phosphorus (09/21/2023 11:14 AM EDT) Phosphorus 2.9 2.5 - 4.5 mg/dL [facility] Blood 09/21/2023 11:1 4 AM EDT 09/21/2023 11:30 AM EDT Narrative Resulting Agency Comment Spec In Lab Micha Givens Jr., MD CHEMISTRY ORDERABLES Performing Organization Address City/[facility] Co de Phone Number [facility] [place] [address] * Magnesium (09/21/2023 11:14 AM EDT) Magnesium 0.80 0.69 - 1.07 mmol/L [facility] Blood 09/21/2023 11:1 4 AM EDT 09/21/2023 11:30 AM EDT Narrative Resulting Agency Comment Spec In Lab Micha Givens Jr., MD CHEMISTRY ORDERABLES Performing Organization Address City/[facility] Co de Phone Number [facility] [place] [address] * Varicella zoster Antibody, IgG (09/21/2023 11:14 AM EDT) Varicella Zoster Antibody IgG Positive Positive [facility] Comment: A positive result for this assay is considered to be an indicator of positive immune status. Blood 09/21/2023 11:1 4 AM EDT 09/21/2023 1:04 PM EDT Narrative Resulting Agency Comment Spec In Lab Micha Givens Jr., MD IMMUNOLOGY ORDERABLE S Performing Organization Address City/[facility]/ZIP Co de Phone Number [facility] [place] [address] * HSV 1 and 2 IgG Antibodies (09/21/2023 11:14 AM EDT) HSV Type 1 Ab, IgG Negative Negative [facility] HSV Type 2 Ab, IgG Negative Negative [facility] Blood 09/21/2023 11:1 4 AM EDT 09/21/2023 1:04 PM EDT Narrative Resulting Agency Comment Spec In Lab Micha Givens Jr., MD IMMUNOLOGY ORDERABLE S Performing Organization Address City/[facility]/ZIP Co de Phone Number [facility] [place] [address] * (ABNORMAL) Alton-Dominguez Virus Antibodies (09/21/2023 11:14 AM EDT) EBV (VCA) IgG Ab Positive(A) Negative [place] [facility] EBV (VCA) IgM Ab Negative Negative [facility] Y [facility] EBNA Antibodies Positive(A) Negative ABBE VOGEL [facility] EBV Interpretation Past EBV infection. HOLDEN [...] MD IMMUNOLOGY ORDERABLE S Performing Organization Address City/[facility] Co de Phone Number [facility] [place] [address] * CMV Antibody, IgM (09/21/2023 11:14 AM EDT) CMV IgM Negative Negative [facility] Blood 09/21/2023 11:1 4 AM EDT 09/21/2023 1:04 PM EDT Narrative Resulting Agency Comment Spec In Lab Micha Givens Jr., MD IMMUNOLOGY ORDERABLE S Performing Organization Address [facility] Co de Phone Number [facility] [place] [address] * CMV Antibody, IgG (09/21/2023 11:14 AM EDT) CMV IgG Negative Negative [facility] Blood 09/21/2023 11:1 4 AM EDT 09/21/2023 1:04 PM EDT Narrative Resulting Agency Comment Spec In Lab Micha Givens Jr., MD IMMUNOLOGY ORDERABLE S Performing Organization Address [facility] Co de Phone Number [facility] [place] [address] * (ABNORMAL) Lactate Dehydrogenase (09/21/2023 11:14 AM EDT) Lactate Dehydrogenase 426(H) 110 - 220 unit/L [facility] Blood 09/21/2023 11:1 4 AM EDT 09/21/2023 11:30 AM EDT Narrative Resulting Agency Comment Spec In Lab Micha Givens Jr., MD CHEMISTRY ORDERABLES [facility] [place] [address] * (ABNORMAL) Comprehensive metabolic panel (non-fasting) (09/21/2023 [...] MD CHEMISTRY ORDERABLES [facility] [place] [address] * Urinalysis with reflex Culture (09/21/2023 11:11 [...] HOSPITAL LABORATORY Leukocytes, Urine Dipstick Negative Negative [facility] Appearance, Urine Dipstick Clear Clear [facility] Specific [place] Urine Automated 1.009 1.005 - 1.030 [facility] Color, Urine Dipstick Yellow Yellow [facility] Reflex to Culture No [facility] Clean Catch Urine 09/21/2023 11:11 AM EDT 09/21/2023 11:33 AM EDT Narrative Resulting Agency Comment Spec In Lab Micha Givens Jr., MD URINE ORDERABLES [facility] [place] [address] documented in this encounter Visit Diagnoses Diagnosis 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 Pre-op testing Preoperative examination, unspecified Prostate cancer screening Special screening for malignant neoplasm of prostate Iron deficiency anemia, unspecified iron deficiency anemia type documented in this encounter Care Teams Adhesive Bonding Machine Operator Relationship Specialty Start Date End Date Frederick Meade MD [address] [place] [address] PCP - General Family Medicine 11/29/17 documented as of this encounter
--- OUTSIDE RECORDS SUMMARY | 2023-10-17 03:25 | XMS_ITS | Encounter Summary ---
Author Organization [facility] [address] Care Team Providers Care Lab Tech Name Role Phone Frederick Meade MD Primary Care Provider +1 [phone] Encounter Details Date Type Department Care Team [...] EDT TH Visit (TeleHealth) Hematology/Oncology at [address] [phone] Adrianne Ramon MD [facility] HEMATOLOGY [place] [address] Yael Merlos APRN [facility] HEMATOLOGY [place] [address] 10/17/2023 1:30 PM EDT Infusion Hematology Oncology at [address] [phone] 10/26/2023 9:00 AM EDT Office Visit Hematology [place] [address] Reynold Proctor MD [facility] [place] [address] 11/14/2023 9:30 AM EDT Office Visit Hematology/Oncology at [address] [phone] Adrianne Ramon MD [facility] HEMATOLOGY [place] [address] Yael Merlos APRN [facility] HEMATOLOGY [place] [address] 11/14/2023 10:00 AM EDT Infusion Hematology Oncology at [address] [phone] documented as of this encounter Visit Diagnoses Not on filedocumented in this encounter Care Teams Lab Tech Relationship Specialty Start Date End Date Frederick Meade MD [address] [place], [place] [id number] PCP - General Family Medicine 11/29/17 documented as of this encounter
--- OUTSIDE RECORDS SUMMARY | 2023-10-17 03:25 | XMS_ITS | Encounter Summary ---
[place] [address] Care Team Providers Care Editor Dictionary Name Role Phone Frederick Meade MD Primary Care Provider +1 -[phone] Encounter Details Date Type Department Care Team (Latest Contact Info) Description 10/10/2023 2:48 PM EDT - 10/10/2023 11:59 PM EDT Hospital Encounter [place] [phone] Diffuse large B-cell lymphoma of lymph nodes [...] by mouth daily. lenalidomide (Revlimid) 20 mg capsuleIndications: progressive diffuse large B-cell lymphoma Take 1 capsule (20 mg) by mouth daily for 21 days. Call clinic before starting medication. Indications: progressive diffuse large B-cell lymphoma 21 capsule 10/10/2023 10/15/2023 documented as of this encounter Plan of Treatment Upcoming Encounters Date Type Department Care Team (Late st Contact Info) Description 10/17/2023 1:00 PM EDT TH Visit (TeleHealth) Hematology/Oncology at [address] [phone] Adrianne Ramon MD [facility] [place] [address] Yael Merlos APRN [facility] [place] [address] 10/17/2023 1:30 PM EDT Infusion Hematology Oncology at [address] [phone] 10/26/2023 9:00 AM EDT Office Visit Hematology [place] [address] Reynold Proctor MD [facility] [place] [address] 11/14/2023 9:30 AM EDT Office Visit Hematology/Oncology at [address] [phone] Adrianne Ramon MD [facility] [place] [address] Yael Merlos APRN [facility] [place] [address] 11/14/2023 10:00 AM EDT Infusion Hematology Oncology at [address] [phone] documented as of this [...] PFT FEV1/FVC Pre-BD Z-Score -2.14 COMPAS PFT WSC49-00 Actual Pre-BD 1.11 % COMPAS PFT NAG75-61 Predicted 2 % COMPAS PFT GCN27-07 Pre-BD % of Predicted 56 % COMPAS PFT VZC43-10 Pre-BD Z-Score -1.17 COMPAS PFT DLCO Hb [...] unspecified documented in this encounter Care Teams Editor Dictionary Relationship Specialty Start Date End Date Frederick Meade MD [address] [place] [address] PCP - General Family Medicine 11/29/17 documented as of this encounter
--- OUTSIDE RECORDS SUMMARY | 2023-10-17 03:25 | XMS_ITS | Encounter Summary ---
Author Organization [facility] Address [facility] [place] [address] Care Team Providers Care Cook Chief Name Role Phone Frederick Meade MD Primary Care Provider [phone] Encounter Details Date Type Department Care Team (Late st Contact Info) Description 10/11/2023 Notes Only Hematology/Oncology at [address] [phone] Shelley Cason, [facility] OFFICE OF CARE MANAGEMENT [...] Progress Notes * Shelley Cason MSW - 10/11/2023 9:25 AM EDT Follow up with Cheo and his during his infusion visit. They have been busy with medical appointments. His talked about the patient assistance Cheo received for his medication and she has all the letters she received re this. Reviewed not from Polly Orellana RN re this assistance. appears to have an understanding of this. Suggested speaking with Ms. Orellana if she has other questions. Cheo indicated he is managing day to day and does what he feels up to. His continues as his primary support and caregiver. Offered support. Cheo and his did not identify any new needs today. Will continue as a resource for them. Brief assessment Supportive Counseling documented in this encounter Plan of Treatment Upcoming Encounters Date Type Department Care Team (Late st Contact Info) Description 10/17/2023 1:00 PM EDT TH Visit (TeleHealth) Hematology/Oncology at [address] [phone] Adrianne Ramon MD [facility] HEMATOLOGY [place] [address] Yael Merlos, SLD TEACHER [facility] DR HEMATOLOGY [place] [address] 10/17/2023 1:30 PM EDT Infusion Hematology Oncology at [address] [phone] 10/26/2023 9:00 AM EDT Office Visit [place]ology [place] [address] Reynold Proctor MD [facility] [address] 11/14/2023 9:30 AM EDT Office Visit Hematology/Oncology at [address] [phone] Adrianne Ramon MD [facility] DR HEMATOLOGY [place] [address] Yael Merlos, KARLA [facility] [address] HEMATOLOGY [place] [address] 11/14/2023 10:00 AM EDT Infusion Hematology Oncology at [address] [phone] documented as of this encounter Visit Diagnoses Not on filedocumented in this encounter Care Teams Cook Chief Relationship Specialty Start Date End Date Frederick Meade MD [address] [place] [address] [address] [place] [address] PCP - General Family Medicine 11/29/17 documented as of this encounter
--- OUTSIDE RECORDS SUMMARY | 2023-10-17 03:25 | XMS_ITS | Encounter Summary ---
Author Organization [facility] Address [facility] [place] [address] Care Team Providers Care Coat Fitter Name Role Phone Frederick Meade MD Primary Care Provider [phone] Reason for Visit * Reason Comments Chemotherapy * Treatment/Therapy Plan Authorization (Routine) - Closed Specialty Diagnoses / Procedures Referred By Contac t Referred To Contact Hematology and Oncology Diagnoses Diffuse large B-cell lymphoma of lymph nodes of multiple regions Adrianne Ramon MD [facility] [address] [place] [address] Stj Hem Onc Infusion [address] [place] [phone] Referral ID Status Reason Start Date Expiration Date Visits Re quested Visits Authorized [id number] Closed 09/12/2023 09/11/2024 99 99 Encounter Details Date Type Department Care Team (Late st Contact Info) Description 09/26/2023 8:30 AM EDT Infusion Hematology Oncology at [address] [phone] Diffuse large B-cell lymphoma of [...] complaints. OBJECTIVE LAB DATA: completed today at [facility] 605 alerted STEAM BOILER FIREMAN who contacted patients PCP and plan has [...] EDT TH Visit (TeleHealth) Hematology/Oncology at [address] [phone] Adrianne Ramon MD [facility] [place] [address] Yael Merlos APRN [facility] [address] [place] [address] 10/17/2023 1:30 PM EDT Infusion Hematology Oncology at [address] [phone] 10/26/2023 9:00 AM EDT Office Visit Hematology [place] [phone] Reynold Proctor MD [facility] [place] [address] 11/14/2023 9:30 AM EDT Office Visit Hematology/Oncology at [address] [phone] Adrianne Ramon MD [facility] [address] [place] [address] Yael Merlos APRN [facility] [place] [address] 11/14/2023 10:00 AM EDT Infusion Hematology Oncology at [address] [phone] documented as of this encounter Visit Diagnoses [...] mL/hr documented in this encounter Care Teams Coat Fitter Relationship Specialty Start Date End Date Frederick Meade MD [address] [place] [address] PCP - General Family Medicine 11/29/17 documented as of this encounter
--- OUTSIDE RECORDS SUMMARY | 2023-10-17 03:25 | XMS_ITS | Encounter Summary ---
[place] [address] Care Team Providers Care Instructional Systems Design Consultant Name Role Phone Frederick Meade MD Primary Care Provider [phone] [phone] Encounter Details Date Type Department Care Team (Latest Contact Info) Description 09/21/2023 10:30 AM EDT Clinical Support Hematology [place] [phone] Danii Her, RN Diffuse large B-cell lymphoma [...] be ready for shipment. Patient returns to [facility] for 3-5 days of chemotherapy (outpatient). Cell Infusion - admission for a minimum of 7 days (our [facility] standard is 14) for monitoring. 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 Stay within 1 hour [facility] for 4 weeks post infusion. Caregiver required [...] maintenance records: colo - Last completed at [facility] in 2011 Dental: False teeth, all teeth removed years ago. We discussed role of social work associate for pretransplant assessment and as a resource for financial assistance programs, advance directives and psychosocial support. Mraia L Barnes visit TBD. We discussed the role of nutrition before, during and after transplant and stressed that there are some modifications to diet that stress food safety -with the goal to decrease the risk of a food borne illness post CAR T. We will have oncology software development project manager re-enforce food safety guidelines post CAR T [...] EDT TH Visit (TeleHealth) Hematology/Oncology at [address] [phone] Adrianne Ramon MD [facility] DR HEMATOLOGY [place] [address] Yael Merlos APRN [facility] DR HEMATOLOGY [place] [address] 10/17/2023 1:30 PM EDT Infusion Hematology Oncology at [address] [phone] 10/26/2023 9:00 AM EDT Office Visit Hematology [place] [address] Reynold Proctor MD [facility] [place] [address] 11/14/2023 9:30 AM EDT Office Visit Hematology/Oncology at [address] [phone] Adrianne Ramon MD [facility] DR HEMATOLOGY [place] [address] Yael Merlos APRN [facility] HEMATOLOGY [place] [address] 11/14/2023 10:00 AM EDT Infusion Hematology Oncology at [address] [phone] documented as of this encounter Visit Diagnoses Diagnosis Diffuse large B-cell lymphoma of lymph nodes of multiple regions documented in this encounter Care Teams Instructional Systems Design Consultant Relationship Specialty Start Date End Date Frederick Meade MD [address] [place] [address] PCP - General Family Medicine 11/29/17 documented as of this encounter
--- OUTSIDE RECORDS SUMMARY | 2023-10-17 03:26 | XMS_ITS | Encounter Summary ---
Author Organization [facility] [place] [address] Care Team Providers Care Firewall Security Engineer Name Role Phone Frederick Meade MD Primary Care Provider [phone] Encounter Details Date Type Department Care Team [...] EDT TH Visit (TeleHealth) Hematology/Oncology at [address] [phone] Adrianne Ramon MD [facility] H[place]AT[place] [address] Yael Merlos APRN [facility] [place] [address] 10/17/2023 1:30 PM EDT Infusion Hematology Oncology at [address] [phone] 10/26/2023 9:00 AM EDT Office Visit Hematology [place] [address] Reynold Proctor MD [facility] [place] [address] 11/14/2023 9:30 AM EDT Office Visit Hematology/Oncology at [address] [phone] Adrianne Ramon MD [facility] [place]ATOLOG[place] [address] Yael Merlos APRN [facility] [place] [address] 11/14/2023 10:00 AM EDT Infusion Hematology Oncology at [address] [phone] documented as of this encounter Visit Diagnoses Not on filedocumented in this encounter Care Teams Firewall Security Engineer Relationship Specialty Start Date End Date Frederick Meade MD [address] [place], [place] [id number] PCP - General Family Medicine 11/29/17 documented as of this encounter
--- OUTSIDE RECORDS SUMMARY | 2023-10-17 03:26 | XMS_ITS | Encounter Summary ---
Author Organization [facility] [place] [address] Care Team Providers Care Control Systems Drafting Officer Name Role Phone Frederick Meade MD Primary Care Provider [phone] Encounter Details Date Type Department Care Team [...] EDT TH Visit (TeleHealth) Hematology/Oncology at [address] [phone] Adrianne Ramon MD [facility] HEMATOLOGY [place] [address] Yael Merlos APRN [facility] HEMATOLOGY [place] [address] 10/17/2023 1:30 PM EDT Infusion Hematology Oncology at [address] [phone] 10/26/2023 9:00 AM EDT Office Visit Hematology [place] [address] Reynold Proctor MD [facility] [address] 11/14/2023 9:30 AM EDT Office Visit Hematology/Oncology at [address] [phone] Adrianne Ramon MD [facility] HEMATOLOGY [place] [address] Yael Merlos APRN [facility] HEMATOLOGY [place] [address] 11/14/2023 10:00 AM EDT Infusion Hematology Oncology at [address] [phone] documented as of this encounter Visit Diagnoses Not on filedocumented in this encounter Care Teams Control Systems Drafting Officer Relationship Specialty Start Date End Date Frederick Meade MD [address] [place], [place] [id number] PCP - General Family Medicine 11/29/17 documented as of this encounter
--- OUTSIDE RECORDS SUMMARY | 2023-10-17 03:26 | XMS_ITS | Encounter Summary ---
Author Organization [facility] Address [facility] [address] Care Team Providers Care Semiconductor Engineer Name Role Phone Frederick Meade MD Primary Care Provider [phone] [phone] Encounter Details Date Type Department Care Team (Late st Contact Info) Description 09/19/2023 Notes Only Hematology/Oncology at [address] [phone] Shelley Cason, [facility] OFFICE OF CARE MANAGEMENT Social [...] are managing otherwise. Reminded them of the [facility] if they needs to apply for [...] did not identify any specific needs today. HIGH VALUE ASSOCIATE will follow for support and resources. Brief assessment Supportive Counseling Financial resources documented in this encounter Plan of Treatment Upcoming Encounters Date Type Department Care Team (Late st Contact Info) Description 10/17/2023 1:00 PM EDT TH Visit (TeleHealth) Hematology/Oncology at [address] [phone] Adrianne Ramon MD [facility] HEMATOLOGY [place] [address] Yael Merlos APRN [facility] HEMATOLOGY [place] [address] 10/17/2023 1:30 PM EDT Infusion Hematology Oncology at [address] [phone] 10/26/2023 9:00 AM EDT Office Visit [place]ematology [place] [address] Reynold Proctor MD [facility] [place] [address] 11/14/2023 9:30 AM EDT Office Visit Hematology/Oncology at [address] [phone] Adrianne Ramon MD [facility] HEMATOLOGY [place] [address] Yael Merlos ELECTRIC MULE OPERATOR [facility] HEMATOLOGY [place] [address] 11/14/2023 10:00 AM EDT Infusion Hematology Oncology at [address] [phone] documented as of this encounter Visit Diagnoses Not on filedocumented in this encounter Care Teams Semiconductor Engineer Relationship Specialty Start Date End Date Frederick Meade MD [address] [place] [address] [address] [place] [id number] PCP - General Family Medicine 11/29/17 documented as of this encounter
--- OUTSIDE RECORDS SUMMARY | 2023-10-17 03:26 | XMS_ITS | Encounter Summary ---
[place] [address] Care Team Providers Care Forming Department End Finder Name Role Phone Frederick Meade MD Primary Care Provider [phone] [phone] Reason for Referral * Diagnostic Test (Routine) - Closed Specialty Diagnoses / Procedures Referred By Contac t Referred To Contact Radiology Diagnoses Diffuse large B-cell lymphoma of lymph nodes of multiple regions Skin nodule Procedures IR Biopsy Lymph Node (Chest/Abdomen/Pelvis) IR Biopsy Lymph Node (Head/Neck) Adrianne Ramon MD [facility] DR HEMATOLOGY [place] [address] [place] [address] Referral ID Status Reason Start Date Expiration Date V isits Requested Visits Authorized [id number] Closed Specialty Service Requested 08/22/2023 02/21/2025 1 1 * Diagnostic Test (Routine) - Closed Specialty Diagnoses / Procedures Referred By Contac t Referred To Contact Radiology Diagnoses Diffuse large B-cell lymphoma of lymph nodes of multiple regions Skin nodule Procedures NM PET CT Standard Plus Extremities and Head Adrianne Ramon MD [facility] HEMATOLOGY [place] [address] [place] [address] Referral ID Status Reason Start Date Expiration Date V isits Requested Visits Authorized [id number] Closed Specialty Service Requested 08/22/2023 02/21/2025 1 1 Encounter Details Date Type Department Care Team (Late st Contact Info) Description 08/22/2023 12:30 PM EDT Office Visit Hematology/Oncology at [address] [phone] Adrianne Ramon MD [facility] HEMATOLOGY [place] [address] Yael Merlos APRN [facility] HEMATOLOGY [place] [address] Diffuse large B-cell lymphoma of lymph nodes [...] - 08/22/2023 12:30 PM EDT Hematology Clinic [facility] [place] [address] HEMATOLOGY PATIENT EVALUATION PROBLEM LIST: Patient Active [...] He is referred in consultation from Dr gL Ramírez ENT. He describes a 4 week h/o of sinus swelling and then cervial LN and could not breath. ~2 weeks prior to consultation, he saw [facility] in [facility] and when to [facility]. No beds so sent to [facility] for [address] [...] x7 days with nice response. Pathology from [facility] reports large B-cell lymphoma. [...] COLO at [facility] was 01/17/2012. INTERIM HISTORY OF [...] and needle of cervical LN. FISH from [facility] No MYCrearrangement and no fusion of MYC [...] only 1 biologic. Son Cheo Freire. Enjoys Qumas, movies, race car, cards. [employer]. 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 Not a . ETOH: 1-3 beers per week Smoking: Quit 1985. Approximately 45-ofaa-xjzg history Vaping or electronic cigarettes: denies Chewing [...] is a delightful 73-year old male in [facility]. He is accompanied to the [...] and BCL-2 protein (Double Expressor.) Flow cytometry ([id number]) supports this interpretation. FISH from [facility] No MYC rearrangement and no fusion of MYC and IGH was observed, CD3 (SP7, [employer]) Background T-cells CD20 (L26, [place]) diffusely positive in Neoplastic B-cells PAX-5 (1EW, [employer]) diffusely positive in Neoplastic B-cells CD10 (SP67, [place]) Negative BCL-6 (G/191E/A8, [place]) Positive MUM-1 (MUM1p, [place]) Positive Myc (Y69, [employer]) Positive BCL-2 Oncoprotein (124, [place]) Positive Ki67 (MIB-1) (K2, [employer]) Greater than 95% of cells in cycle Cyclin D1(SP4-R, [place]) Negative SAPPHIRE JOSE ([id number], [employer]) Negative. DIAGNOSTICS: 01/25/23 ECHO after C#5 [...] 08/22/2023 left upper extremity ultrasound performed at [facility] Notable findings: In the left [...] undergo investigation with ultrasound. CT CAP at [facility], report and images have been [...] listed above with ultrasound done today at [facility]. See report in scanned documents. This may represent a recurrence, but it could also be infectious. I spoke to Dr. Bruce Husain at [facility], who recommended large core needle biopsy. [...] keep. We will also do labs at [facility] on day of bio psies. Cardiac -Cheo [...] LVEF at 50-55%. --asymptomatic --repeat echo at [facility] 1 year post completion of [...] - [address] at [facility] Surveillance every 3 mos for first year [...] EDT TH Visit (TeleHealth) Hematology/Oncology at [address] [phone] Adrianne Ramon MD [facility] HEMATOLOGY [place] [address] Yael Merlos, WORKSITE WELLNESS PRACTITIONER [facility] HEMATOLOGY [place] [address] 10/17/2023 1:30 PM EDT Infusion Hematology Oncology at [address] [phone] 10/26/2023 9:00 AM EDT Office Visit Hematology [place] [address] Reynold Proctor MD [facility] [place] [address] 11/14/2023 9:30 AM EDT Office Visit Hematology/Oncology at [address] [phone] Adrianne Ramon MD [facility] HEMATOLOGY [place] [address] Yael Merlos APRN [facility] HEMATOLOGY [place] [address] 11/14/2023 10:00 AM EDT Infusion Hematology Oncology at [address] [phone] documented as of this encounter Procedures Procedure Name Priority Date/Time Associated Diagnosis Comments CBC (WITH DIFF) Routine 08/22/2023 COMPREHENSIVE METABOLIC PANEL Routine 08/22/2023 documented in this encounter Results * NM PET CT Standard Plus Extremities and Head (09/06/2023 2:45 PM EDT) WORKSTATION ID [id number] DH RAD Anatomical Region Laterality Modality Positron [...] who have questions please contact the health managed care liaison that requested your imaging first. ? Narrative [...] unspecified. TECHNIQUE: Procedure: Following IV injection of 25-xjfyfx-8-deoxyglucose (FDG) a standard uptake of approximately 60 [...] unspecified. TECHNIQUE: Procedure: Following IV injection of 19-mcoxvz-7-deoxyglucose(FDG) a standard uptake of approximately 60 minutes, [...] patients who have questions please contactthe health managed care liaison that requested your imaging first. Adrianne Ramon [...] Blood Culture No growth at 5 days. [facility] Blood ANTECUBITAL REGION STRUCTURE / Unknown 09/06/2023 10:12 AM EDT 09/06/2023 10:31 AM EDT Comment:Peripheral culture Narrative Resulting Agency Comment Spec In Lab Adrianne Ramon MD MICROBIOLOGY - B LOOD ORDERABLES Performing Organization Address City/[facility]/ZIP Co de Phone Number [facility] [place] [address] * (ABNORMAL) Lactate Dehydrogenase (09/06/2023 10:12 AM EDT) Lactate Dehydrogenase 251(H) 110 - 220 unit/L [facility] Blood 09/06/2023 10:1 2 AM EDT 09/06/2023 10:16 AM EDT Narrative Resulting Agency Comment Spec In Lab Adrianne Ramon MD CHEMISTRY ORDERA BLES Performing Organization Address City/[facility]/ZIP Co de Phone Number [facility] [place] [address] * (ABNORMAL) Comprehensive metabolic panel (non-fasting) (09/06/2023 10:12 AM EDT) Glucose 170 65 - 199 mg/dL [facility] Comment:Diabetes: >=200 mg/d L plus symptoms Blood Urea Nitrogen 15 10 - 20 mg/dL [facility] Creatinine 1.07 0.80 - 1.50 mg/dL [facility] Sodium 143 135 - 145 mmol/L [facility] Potassium 3.8 3.5 - 5.0 mmol/L [facility] Comment: Please note: ??Patients with WBC >100,000 may have falsely elevated Potassium levels. ??For accurate Potassium quantification in these patients send serum separator tube (gold top) for subsequent determinations. ??Contact the Clinical Chemistry Laboratory if there are any questions. Chloride 107 98 - 107 mmol/L [facility] Carbon Dioxide 25 22 - 31 mmol/L [facility] Anion Gap 11 5 - 15 mmol/L [facility] Calcium 9.2 8.5 - 10.5 mg/dL [facility] Protein, Total 6.1 6.1 - 8.0 g/dL [facility] Albumin 3.7 3.2 - 5.2 g/dL [facility] Aspartate Aminotransferase 37 0 - 39 unit/L [facility] Alanine Aminotransferase 61(H) 0 - 55 unit/L [facility] Alkaline Phosphatase 151(H) 40 - 130 unit/L [facility] Bilirubin, Total 0.3 0.2 - 1.3 mg/dL [facility] Est Glomerular Filtration Rate 72 >=60 mL/min/1. 73 m?? [facility] [...] CHEMISTRY ORDERA BLES [facility] [place] [address] * Comprehensive metabolic panel (non-fasting) (08/22/2023) Creatinine 1.3 Potassium 3.5 Bilirubin, Total 0.4 Alkaline Phosphatase 122 Aspartate Aminotransferase 23 Alanine Aminotransferase 27 Blood 08/22/2023 Historical Provider CHEMISTRY ORDERAB LES * CBC (with Diff) (08/22/2023) Pathologist [facility] White Blood Cell 8.12 Hemoglobin 13.2 Hematocrit [...] lump documented in this encounter Care Teams Forming Department End Finder Relationship Specialty Start Date End Date Frederick Meade MD [address] [place] [address] PCP - General Family Medicine 11/29/17 documented as of this encounter
--- OUTSIDE RECORDS SUMMARY | 2023-10-17 03:26 | XMS_ITS | Encounter Summary ---
Author Organization [facility] [place] [address] Care Team Providers Care Dispensary Attendant Name Role Phone Frederick Meade MD Primary Care Provider [phone] Encounter Details Date Type Department Care Team (Late st Contact Info) Description 09/19/2023 Orders Only Hematology [place] [address] Yael Merlos, INSURANCE LEGAL ASSISTANT [facility] DR [place] [address] Diffuse large B-cell lymphoma of lymph nodes [...] EDT TH Visit (TeleHealth) Hematology/Oncology at [address] [phone] Adrianne Ramon MD [facility] DR [place] [address] Yael Merlos, INSURANCE LEGAL ASSISTANT [facility] [place] [address] 10/17/2023 1:30 PM EDT Infusion Hematology Oncology at [address] [phone] 10/26/2023 9:00 AM EDT Office Visit Hematology [place] [address] Reynold Proctor MD [facility] [place] [address] 11/14/2023 9:30 AM EDT Office Visit Hematology/Oncology at [address] [phone] Adrianne Ramon MD [facility] DR [place]EM[place] [address] Yael Merlos APRN [facility] [place] [address] 11/14/2023 10:00 AM EDT Infusion Hematology Oncology at [address] [phone] Scheduled Orders Name Type Priority Associated Diagnoses Orde r Schedule Uric acid Lab STAT Diffuse large B-cell lymphoma of lymph nodes of multiple regions As Needed for 12 Occurrences starting 09/19/2023 until 09/18/2024 documented as of this encounter Visit Diagnoses Diagnosis Diffuse large B-cell lymphoma of lymph nodes of multiple regions documented in this encounter Care Teams Dispensary Attendant Relationship Specialty Start Date End Date Frederick Meade MD [address] [place] [address] [address] [place] [address] PCP - General Family Medicine 11/29/17 documented as of this encounter
--- OUTSIDE RECORDS SUMMARY | 2023-10-17 03:26 | XMS_ITS | Encounter Summary ---
Author Organization [facility] [place] [address] Care Team Providers Care Cast Shell Grinder Name Role Phone Frederick Meade MD Primary Care Provider [phone] Reason for Visit * Diagnostic Test (Routine) - Closed Specialty Diagnoses / Procedures Referred By Contac t Referred To Contact Radiology Diagnoses Diffuse large B-cell lymphoma of lymph nodes of multiple regions Skin nodule Procedures NM PET CT Standard Plus Extremities and Head Adrianne Ramon MD [facility] DR HEMATOLOG[place] [address] [place] [address] Referral ID Status Reason Start Date Expiration Date V isits Requested Visits Authorized [id number] Closed Specialty Service Requested 08/22/2023 02/21/2025 1 1 Encounter Details Date Type Department Care Team (Late st Contact Info) Description 09/06/2023 1:00 PM EDT - 09/06/2023 11:59 PM EDT Hospital Encounter [place] [address] Adrianne Ramon MD [facility] DR HEMATOLOGY [place] [address] Discharge Disposition: Home Social History [...] EDT TH Visit (TeleHealth) Hematology/Oncology at [address] [phone] Adrianne Ramon MD [facility] HEMATOLOGY [place] [address] Yael Merlos APRN [facility] [place]ATOLOGY [place] [address] 10/17/2023 1:30 PM EDT Infusion Hematology Oncology at [address] [phone] 10/26/2023 9:00 AM EDT Office Visit Hematology [place] [address] Reynold Proctor MD [facility] [place] [address] 11/14/2023 9:30 AM EDT Office Visit Hematology/Oncology at [address] [phone] Adrianne Ramon MD [facility] HEMATOLOGY [place] [address] Yael Merlos APRN [facility] DR [place]EMATOLOG[place] [address] 11/14/2023 10:00 AM EDT Infusion Hematology Oncology at [address] [phone] documented as of this encounter Procedures Procedure [...] CARE TE ST ORDERABLES Performing Organization Address City/State/[facility] Co de Phone Number [facility] [address] * POCT Glucose (09/06/2023 10:41 AM EDT) Glucose, POC 142 65 - 199 mg/dL [facility] Comment: Supplemental ranges: <140 mg/dL before meals <180 mg/dL all other times of the day Blood 09/06/2023 10:4 1 AM EDT 09/06/2023 10:41 AM EDT Adrianne Ramon MD POINT OF CARE TE ST ORDERABLES [facility] [place] [address] documented in this encounter Visit Diagnoses Not on filedocumented in this encounter Care Teams Cast Shell Grinder Relationship Specialty Start Date End Date Frederick Meade MD [address] [place] [address] PCP - General Family Medicine 11/29/17 documented as of this encounter
--- OUTSIDE RECORDS SUMMARY | 2023-10-17 03:26 | XMS_ITS | Encounter Summary ---
[facility] Organization [facility] [place] [address] Care Team Providers Care Manager Background Name Role Phone Frederick Meade MD Primary Care Provider +1 [phone] Encounter Details Date Type Department Care Team (Late st Contact Info) Description 09/14/2023 Telephone Hematology/Oncology at [address] [phone] Brenda Priest, RN Social History [...] 09/14/2023 3:11 PM EDT ADD:Sent email to [employer] they will contact [employer] to see what they can get for money for pt. They will update us. Received call from Donita Jimenez At [employer] ([phone]) stating that they received the application for patient financial assistance for Revlimid. States that there is a Revlimid prescription claim in the [facility] which is showing that the patient has met his OOP max. She suggests that we call [facility] and ask that they reverse the claim because patient hasn't received drug. This willallow them to see what his co-pay will be so that they can determine eligibility for financial assistance and free drug. RN call to [facility] spoke with bacteriologist pharmaceutical who states that the claim was reversed on their end on 09/11 at 5pm. Suggests that I call his insurance to discuss and ask them to reverse the claim. Call to [employer] ([phone]) spoke with someone who transferred me to [employer].Spoke with Marcos at [employer], pharmacy services for claim reversal. Also states that the claim was reversed by [facility] on 09/11, no claim in process at this time. Call to [employer] support, spoke with Donita Jimenez - states that this patient is qualified for a toi.They need to apply for this open toi to try before being able to get free drug. [employer] - [phone] or [employer]org - can apply by phone or website. documented in this encounter Plan of Treatment Upcoming Encounters Date Type Department Care Team (Late st Contact Info) Description 10/17/2023 1:00 PM EDT TH Visit (TeleHealth) Hematology/Oncology at [address] [phone] Adrianne Ramon MD [facility] [place] [address] Yael Merlos APRN [facility] [place] [address] 10/17/2023 1:30 PM EDT Infusion Hematology Oncology at [address] [phone] 10/26/2023 9:00 AM EDT Office Visit Hematology [place] [address] Reynold Proctor MD [facility] [place] [address] 11/14/2023 9:30 AM EDT Office Visit Hematology/Oncology at [address] [phone] Adrianne Ramon MD [facility] HEMATOLOGY [place] [address] Yael Merlos APRN [facility] [place] [address] 11/14/2023 10:00 AM EDT Infusion Hematology Oncology at [address] [phone] documented as of this encounter Visit Diagnoses Not on filedocumented in this encounter Care Teams Manager Background Relationship Specialty Start Date End Date Frederick Meade MD [address] [place] [address] PCP - General Family Medicine 11/29/17 documented as of this encounter
--- OUTSIDE RECORDS SUMMARY | 2023-10-17 03:26 | XMS_ITS | Encounter Summary ---
[place] [address] Care Team Providers Care Orthoptist Name Role Phone Frederick Meade MD Primary Care Provider [phone] [phone] Encounter Details Date Type Department Care Team (Late st Contact Info) Description 03/15/2023 Orders Only Radiology at [facility] [place] [address] Aaron Husain MD [facility] INTERVENTIONAL [place] [address] Social History Tobacco Use Types Packs/Day Years [...] IR Mediport Placement 10/17/2022 Gail Jha PA [facility] INTERVENTIONL RAD TONSILLECTOMY 1958 Medications: Current Outpatient [...] Not on file Occupational History 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, 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 Tobacco Use Smoking status: Former Packs/day: [...] EDT TH Visit (TeleHealth) Hematology/Oncology at [address] [phone] Adrianne Ramon MD [facility] DR HEMATOLOGY AND ONCOLOGY [place], [place] [phone] Yael Merlos APRN [facility] DR HEMATOLOGY [place] [address] 10/17/2023 1:30 PM EDT Infusion Hematology Oncology at [address] [phone] 10/26/2023 9:00 AM EDT Office Visit Hematology [place] [address] Reynold Proctor MD [facility] [place] [address] 11/14/2023 9:30 AM EDT Office Visit Hematology/Oncology at [address] [phone] Adrianne Ramon MD [facility] DR HEMATOLOGY [place] [address] Yael Merlos SPORTS LEADERSHIP INSTRUCTOR [facility] HEMATOLOGY [place] [address] 11/14/2023 10:00 AM EDT Infusion Hematology Oncology at [address] [phone] documented as of this encounter Visit Diagnoses Not on filedocumented in this encounter Care Teams Orthoptist Relationship Specialty Start Date End Date Frederick Meade MD [facility] [address] [place] [address] PCP - General Family Medicine 11/29/17 documented as of this encounter
--- OUTSIDE RECORDS SUMMARY | 2023-10-17 03:26 | XMS_ITS | Encounter Summary ---
Author Organization [place] [place] [address] Care Team Providers Care Business Development Assistant Name Role Phone Frederick Meade MD Primary Care Provider [phone] [phone] Encounter Details Date Type Department Care Team [...] EDT TH Visit (TeleHealth) Hematology/Oncology at [address] [phone] Adrianne Ramon MD [facility] [place]OLOG[place] [address] Yael Merlos APRN [facility] [place] [address] 10/17/2023 1:30 PM EDT Infusion Hematology Oncology at [address] [phone] 10/26/2023 9:00 AM EDT Office Visit [place] [address] Reynold Proctor MD [facility] [place] [address] 11/14/2023 9:30 AM EDT Office Visit Hematology/Oncology at [address] [phone] Adrianne Ramon MD [facility] [place]ATOLOGY [place] [address] Yael Merlos APRN [facility] [place]OLOG[place] [address] 11/14/2023 10:00 AM EDT Infusion Hematology Oncology at [address] [phone] documented as of this encounter Visit Diagnoses Not on filedocumented in this encounter Care Teams Business Development Assistant Relationship Specialty Start Date End Date Frederick Meade MD [address] [place], [place] [id number] PCP - General Family Medicine 11/29/17 documented as of this encounter
--- OUTSIDE RECORDS SUMMARY | 2023-10-17 03:26 | XMS_ITS | Encounter Summary ---
Author Organization [facility] [place] [address] Care Team Providers Care Manager Bar Name Role Phone Frederick Meade MD Primary Care Provider +1 [phone] Encounter Details Date Type Department Care Team [...] EDT TH Visit (TeleHealth) Hematology/Oncology at [address] [phone] Adrianne Ramon MD [facility] HEMATOLOGY [place] [address] Yael Merlos APRN [facility] HEMATOLOGY [place] [address] 10/17/2023 1:30 PM EDT Infusion Hematology Oncology at [address] [phone] 10/26/2023 9:00 AM EDT Office Visit Hematology [place] [address] Reynold Proctor MD [facility] [place] [address] 11/14/2023 9:30 AM EDT Office Visit Hematology/Oncology at [address] [phone] Adrianne Ramon MD [facility] HEMATOLOGY [place] [address] Yael Merlos APRN [facility] HEMATOLOGY [place] [address] 11/14/2023 10:00 AM EDT Infusion Hematology Oncology at [address] [phone] documented as of this encounter Visit Diagnoses Not on filedocumented in this encounter Care Teams Manager Bar Relationship Specialty Start Date End Date Frederick Meade MD [address] [place], [place] [id number] PCP - General Family Medicine 11/29/17 documented as of this encounter
--- OUTSIDE RECORDS SUMMARY | 2023-10-17 03:26 | XMS_ITS | Encounter Summary ---
Author Organization [facility] Address [facility] [place] [address] Care Team Providers Care Practical Ministries Professor Name Role Phone Frederick Meade MD Primary Care Provider [phone] [phone] Reason for Visit * Reason Onset Date Comments Other 09/13/2023 Financial paperw ork Encounter Details Date Type Department Care Team (Late st Contact Info) Description 09/13/2023 Telephone Hematology/Oncology at [address] [phone] Colt Ardon, RN Other (Financial [...] Completed [employer] forms faxed to [phone], fax confirmed. Copy of application and supporting financial docs scanned into media for reference. documented in this encounter Plan of Treatment Upcoming Encounters Date Type Department Care Team (Late st Contact Info) Description 10/17/2023 1:00 PM EDT TH Visit (TeleHealth) Hematology/Oncology at [address] [phone] Adrianne Ramon MD [facility] [place] [address] Yael Merlos APRN [facility] [place] [address] 10/17/2023 1:30 PM EDT Infusion Hematology Oncology at [address] [phone] 10/26/2023 9:00 AM EDT Office Visit Hematology [place] [address] Reynold Proctor MD [facility] [place] [address] 11/14/2023 9:30 AM EDT Office Visit Hematology/Oncology at [address] [phone] Adrianne Ramon MD [facility] DR [place] [address] Yael Merlos, OPERATIONS SPECIALIST [facility] [place] [address] 11/14/2023 10:00 AM EDT Infusion Hematology Oncology at [address] [phone] documented as of this encounter Visit Diagnoses Not on filedocumented in this encounter Care Teams Practical Ministries Professor Relationship Specialty Start Date End Date Frederick Meade MD [address] [place], [place] [address] PCP - General Family Medicine 11/29/17 documented as of this encounter
--- OUTSIDE RECORDS SUMMARY | 2023-10-17 03:26 | XMS_ITS | Encounter Summary ---
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 [...] EDT TH Visit (TeleHealth) Hematology/Oncology at [address] [phone] Adrianne Ramon MD [facility] DR [place] [address] Yael Merlos, KARLA [facility] [place] [address] 10/17/2023 1:30 PM EDT Infusion Hematology Oncology at [address] [phone] 10/26/2023 9:00 AM EDT Office Visit Hematology [place] [address] Reynold Proctor MD [facility] [place] [address] 11/14/2023 9:30 AM EDT Office Visit Hematology/Oncology at [address] [phone] Adrianne Ramon MD [facility] HEMATOLOGY [place] [address] Yael Merlos APRN [facility] [place] [address] 11/14/2023 10:00 AM EDT Infusion Hematology Oncology at [address] [phone] Scheduled Orders Name Type Priority [...] 7:45 AM EST) Neutrophil % 56.0 % [facility] Neutrophil Absolute 3.23 1.70 - 6.10 x10(3)/mc L [facility] Lymph % 12.1 % [facility] Lymphocytes Abs 0.7(L) 0.9 - 3.2 x10(3)/mc L [facility] Monocyte % 20.5 % [facility] Monocyte Abs 1.2(H) 0.3 - 0.9 x10(3)/mc L [facility] Eos % 10.2 % [facility] Eosinophils Abs 0.6(H) 0.0 - 0.4 x10(3)/mc L [facility] Basophil % 1.0 % [facility] Baso Absolute 0.1 0.0 - 0.1 x10(3)/mc L [facility] Immature Gran % 0.20 % [facility] Comment: Immature granulocytes(IG's)percentage and absolute count will include metamyelocytes, myelocytes, and promyelocytes. Blood smears from CBCs yielding IG's will be scanned manually for concordance. If this scan disagrees with the automated IG or if promyelocytes are noted, a manual differential will be performed. Immature Gran Absolute 0.01 0.00 - 0.04 x10(3)/mc L [facility] Blood 03/06/2023 7:45 AM EST 03/06/2023 8:00 AM EST Narrative Resulting Agency Comment Spec In Lab Adrianne Ramon MD HEMATOLOGY ORDER DUONG Performing Organization Address City/State/[facility] Co de Phone Number [facility] [place] [address] * (ABNORMAL) Hemogram (03/06/2023 7:45 AM EST) White Blood Cell 5.8 4.0 - 9.5 x10(3)/mc L [facility] Red Blood Cell 3.67(L) 4.58 - 5.54 x10(6)/mc L [facility] Hemoglobin 11.3(L) 13.7 - 16.5 g/dL [facility] Hematocrit 34.5(L) 40.5 - 48.5 % [facility] Mean Cell Volume 94.0(H) 82.9 - 93.1 fL [facility] Mean Cell Hemoglobin 30.8 27.5 - 32.1 pg [facility] Mean Cell Hemoglobin Concentration 32.8 32.0 - 35.7 g/dL [facility] Platelet 211 145 - 357 x10(3)/mc L [facility] RDW Standard Deviation 54.8(H) 36.0 - 45.0 fL [facility] RDW coefficient of variation 15.9(H) 11.4 - 13.8 % [facility] Mean Platelet Volume 10.2 7.6 - 12.9 fL [facility] NRBC% auto 0.0 % [facility] NRBC Absolute 0.000 0.000 - 0.000 x10(3)/mc L [facility] Blood 03/06/2023 7:45 AM EST 03/06/2023 8:00 AM EST Narrative Resulting Agency Comment Spec In Lab Adrianne Ramon MD HEMATOLOGY ORDER DUONG [facility] [address] [facility] [place] [address] * (ABNORMAL) Comprehensive metabolic panel (non-fasting) (03/06/2023 7:45 AM EST) Glucose 133 65 - 199 mg/dL [facility] Comment:Diabetes: >=200 mg/d L plus symptoms Blood Urea Nitrogen 12 10 - 20 mg/dL [facility] Creatinine 0.94 0.80 - 1.50 mg/dL [facility] Sodium 143 135 - 145 mmol/L [facility] Potassium 3.7 3.5 - 5.0 mmol/L [facility] Comment: Please note: ??Patients with WBC >100,000 may have falsely elevated Potassium levels. ??For accurate Potassium quantification in these patients send serum separator tube (gold top) for subsequent determinations. ??Contact the Clinical Chemistry Laboratory if there are any questions. Chloride 108(H) 98 - 107 mmol/L [facility] Carbon Dioxide 23 22 - 31 mmol/L [facility] Anion Gap 12 5 - 15 mmol/L [facility] Calcium 9.6 8.5 - 10.5 mg/dL [facility] Protein, Total 6.4 6.1 - 8.0 g/dL [facility] Albumin 4.1 3.2 - 5.2 g/dL [facility] Aspartate Aminotransferase 22 0 - 39 unit/L [facility] Alanine Aminotransferase 18 0 - 55 unit/L [facility] Alkaline Phosphatase 103 40 - 130 unit/L [facility] Bilirubin, Total 0.2 0.2 - 1.3 mg/dL [facility] Est Glomerular Filtration Rate 85 >=60 mL/min/1. 73 m?? [facility] Comment: This patient's estimated GFR was [...] CHEMISTRY ORDERA BLES Performing Organization Address [facility] Co de Phone Number [facility] [place] [address] * (ABNORMAL) Immunoglobulins, Quantitative (03/06/2023 7:45 AM EST) Immunoglobulin G 572(L) 700 - 1,600 mg/dL [facility] Comment: Pediatric Reference Intervals obtained from the [employer] Reference Interval project. http://www.BriefCam.ca/caliperproject/index.html IgA 118 70 - 400 mg/dL [facility] IgM 123 40 - 230 mg/dL [facility] Blood 03/06/2023 7:45 AM EST 03/06/2023 8:00 AM EST Narrative Resulting Agency Comment Spec In Lab Adrianne Ramon MD CHEMISTRY ORDERA BLES Performing Organization Address City/[facility] Co de Phone Number [facility] [place] [address] * Lactate Dehydrogenase (03/06/2023 7:45 AM EST) Lactate Dehydrogenase 198 110 - 220 unit/L [facility] Blood 03/06/2023 7:45 AM EST 03/06/2023 8:00 AM EST Narrative Resulting Agency Comment Spec In Lab Adrianne Ramon MD CHEMISTRY ORDERA BLES [facility] [place] [address] * Uric acid (03/06/2023 7:45 AM EST) Uric Acid 5.5 3.5 - 8.5 mg/dL [facility] Blood 03/06/2023 7:45 AM EST 03/06/2023 8:00 AM EST Narrative Resulting Agency Comment Spec In Lab Adrianne Ramon MD CHEMISTRY ORDERA BLES Performing Organization Address City/[facility] Co de Phone Number [facility] [place] [address] documented in this encounter Visit Diagnoses Diagnosis [...] Sun03/06/23 at 0740, Until Sun03/07/23 at 0433, Vineyardist, Routine Given 03/06/2023 7:50 AM EST 20 mLs documented in this encounter Care Teams Wardrobe Manager Relationship Specialty Start Date End Date Frederick Meade MD [address] [place] [address] PCP - General Family Medicine 11/29/17 documented as of this encounter
--- OUTSIDE RECORDS SUMMARY | 2023-10-17 03:26 | XMS_ITS | Encounter Summary ---
Author Organization [facility] Address [facility] [place] [address] Care Team Providers Care Manager French Name Role Phone Frederick Meade MD Primary Care Provider +1 -[phone] Reason for Visit * Reason Onset Date Comments New Medication Request 09/12/2023 revlimid Encounter Details Date Type Department Care Team (Late st Contact Info) Description 09/12/2023 Telephone Hematology/Oncology at [address] [phone] Polly Orellana RN New Medication [...] Prescriber online survey done 09/12/23 with the [employer] Revlimid [employer] Program Revlimid Auth # [id number] Pt Survey done on 09/12/23 Prescription to be manually faxed to [email or web address] [phone] phone [phone] after obtaining signature Adrianne Ramon MD Script [...] EDT TH Visit (TeleHealth) Hematology/Oncology at [address] [phone] Adrianne Ramon MD [facility] DR [place] [address] Yael Merlos APRN [facility] [place] [address] 10/17/2023 1:30 PM EDT Infusion Hematology Oncology at [address] [phone] 10/26/2023 9:00 AM EDT Office Visit Hematology [place] [address] Reynold Proctor MD [facility] [place] [address] 11/14/2023 9:30 AM EDT Office Visit Hematology/Oncology at [address] [phone] Adrianne Ramon MD [facility] [address] [place] [address] Yael Merlos YEAST CULTURE DEVELOPER [facility] [place] [address] 11/14/2023 10:00 AM EDT Infusion Hematology Oncology at [address] [phone] documented as of this encounter Visit Diagnoses Not on filedocumented in this encounter Care Teams Manager French Relationship Specialty Start Date End Date Frederick Meade MD [facility] [address] [place] [address] PCP - General Family Medicine 11/29/17 documented as of this encounter
--- OUTSIDE RECORDS SUMMARY | 2023-10-17 03:26 | XMS_ITS | Encounter Summary ---
Author Organization [facility] [place] [address] Care Team Providers Care Incident Response Consultant Name Role Phone Frederick Meade MD Primary Care Provider +[phone] Encounter Details Date Type Department Care Team [...] EDT TH Visit (TeleHealth) Hematology/Oncology at [address] [phone] Adrianne Ramon MD [facility] HEMATOLOGY [place] [address] Yael Merlos APRN [facility] HEMATOLOGY [place] [address] 10/17/2023 1:30 PM EDT Infusion Hematology Oncology at [address] [phone] 10/26/2023 9:00 AM EDT Office Visit Hematology [place] [address] Reynold Proctor MD [facility] [address] 11/14/2023 9:30 AM EDT Office Visit Hematology/Oncology at [address] [phone] Adrianne Ramon MD [facility] HEMATOLOGY [place] [address] Yael Merlos APRN [facility] HEMATOLOGY [place] [address] 11/14/2023 10:00 AM EDT Infusion Hematology Oncology at [address] [phone] documented as of this encounter Visit Diagnoses Not on filedocumented in this encounter Care Teams Incident Response Consultant Relationship Specialty Start Date End Date Frederick Meade MD [address] [place], [place] [id number] PCP - General Family Medicine 11/29/17 documented as of this encounter
--- OUTSIDE RECORDS SUMMARY | 2023-10-17 03:26 | XMS_ITS | Encounter Summary ---
Author Organization [facility] [place] [address] Care Team Providers Care Senior Vice President Name Role Phone Frederick Meade MD Primary Care Provider [phone] Encounter Details Date Type Department Care Team (Latest Contact Info) Description 09/06/2023 9:48 AM EDT - 09/06/2023 10:14 AM EDT Hospital Encounter [place]ematology [place] [phone] Diffuse large B-cell lymphoma of lymph nodes [...] EDT TH Visit (TeleHealth) Hematology/Oncology at [address] [phone] Adrianne Ramon MD [facility] [address] [place] [address] Yael Merlos APRN [facility] HEMATOLOGY [place] [address] 10/17/2023 1:30 PM EDT Infusion Hematology Oncology at [address] [phone] 10/26/2023 9:00 AM EDT Office Visit Hematology [place] [phone] Reynold Proctor MD [facility] [place] [address] 11/14/2023 9:30 AM EDT Office Visit Hematology/Oncology at [address] [phone] Adrianne Ramon MD [facility] [place] [address] Yael Merlos APRN [facility] [place] [address] 11/14/2023 10:00 AM EDT Infusion Hematology Oncology at [address] [phone] documented as of this encounter Procedures Procedure [...] 10:12 AM EDT) Neutrophil % 64.9 % [facility] Neutrophil Absolute 4.20 1.70 - 6.10 x10(3)/mc L [facility] Lymph % 14.1 % [facility] Lymphocytes Abs 0.9 0.9 - 3.2 x10(3)/ L [facility] Monocyte % 16.7 % [facility] Monocyte Abs 1.1(H) 0.3 - 0.9 x10(3)/mc L [facility] Eos % 3.7 % [facility] Eosinophils Abs 0.2 0.0 - 0.4 x10(3)/mc L [facility] Basophil % 0.3 % [facility] Baso Absolute 0.0 0.0 - 0.1 x10(3)/mc L [facility] Immature Gran % 0.30 % [facility] Comment: Immature granulocytes(IG's)percentage and absolute count will include metamyelocytes, myelocytes, and promyelocytes. Blood smears from CBCs yielding IG's will be scanned manually for concordance. If this scan disagrees with the automated IG or if promyelocytes are noted, a manual differential will be performed. Immature Gran Absolute 0.02 0.00 - 0.04 x10(3)/mc L [facility] Blood 09/06/2023 10:1 2 AM EDT 09/06/2023 10:16 AM EDT Narrative Resulting Agency Comment Spec In Lab Adrianne Ramon MD HEMATOLOGY ORDER DUONG [facility] [place] [address] * (ABNORMAL) Hemogram (09/06/2023 10:12 AM EDT) White Blood Cell 6.5 4.0 - 9.5 x10(3)/ L [facility] Red Blood Cell 3.98(L) 4.58 - 5.54 x10(6)/mc L [facility] Hemoglobin 12.0(L) 13.7 - 16.5 g/dL [facility] Hematocrit 36.5(L) 40.5 - 48.5 % [facility] Mean Cell Volume 91.7 82.9 - 93.1 fL [facility] Mean Cell Hemoglobin 30.2 27.5 - 32.1 pg [facility] Mean Cell Hemoglobin Concentration 32.9 32.0 - 35.7 g/dL [facility] Platelet 145 145 - 357 x10(3)/mc L [facility] RDW Standard Deviation 48.4(H) 36.0 - 45.0 [facility] RDW coefficient of variation 14.4(H) 11.4 - 13.8 % [facility] Mean Platelet Volume 10.3 7.6 - 12.9 [facility] NRBC% auto 0.0 % [facility] NRBC Absolute 0.000 0.000 - 0.000 x10(3)/[facility] Blood 09/06/2023 10:1 2 AM EDT 09/06/2023 10:16 AM EDT Narrative Resulting Agency Comment Spec In Lab Adrianne Ramon MD HEMATOLOGY ORDER DUONG [facility] [place] [address] * (ABNORMAL) Lactate Dehydrogenase (09/06/2023 10:12 AM EDT) Lactate Dehydrogenase 251(H) 110 - 220 unit/L [facility] Blood 09/06/2023 10:1 2 AM EDT 09/06/2023 10:16 AM EDT Narrative Resulting Agency Comment Spec In Lab Adrianne Ramon MD CHEMISTRY ORDERA BLES Performing Organization Address [facility]/ZIP Co de Phone Number [facility] [place] [address] * (ABNORMAL) Comprehensive metabolic panel (non-fasting) (09/06/2023 10:12 AM EDT) Pathologist [facility] Glucose 170 65 - 199 mg/dL [facility] Comment:Diabetes: >=200 mg/d L plus symptoms Blood Urea Nitrogen 15 10 - 20 mg/dL [facility] Creatinine 1.07 0.80 - 1.50 mg/dL [facility] Sodium 143 135 - 145 mmol/L [facility] Potassium 3.8 3.5 - 5.0 mmol/L [facility] Comment: Please note: ??Patients with WBC >100,000 may have falsely elevated Potassium levels. ??For accurate Potassium quantification in these patients send serum separator tube (gold top) for subsequent determinations. ??Contact the Clinical Chemistry Laboratory if there are any questions. Chloride 107 98 - 107 mmol/L [facility] Carbon Dioxide 25 22 - 31 mmol/L [facility] Anion Gap 11 5 - 15 mmol/L [facility] Calcium 9.2 8.5 - 10.5 mg/dL [facility] Protein, Total 6.1 6.1 - 8.0 g/dL [facility] Albumin 3.7 3.2 - 5.2 g/dL [facility] Aspartate Aminotransferase 37 0 - 39 unit/L [facility] Alanine Aminotransferase 61(H) 0 - 55 unit/L [facility] Alkaline Phosphatase 151(H) 40 - 130 unit/L [facility] Bilirubin, Total 0.3 0.2 - 1.3 mg/dL [facility] Est Glomerular Filtration Rate 72 >=60 mL/min/1. 73 m?? [facility] [...] Lab Adrianne Ramon MD CHEMISTRY ORDERA BLES [facility] [place] [place] [address] * Blood culture (09/06/2023 10:12 AM EDT) Blood Culture No growth at 5 days. [facility] Blood ANTECUBITAL REGION STRUCTURE / Unknown 09/06/2023 10:12 AM EDT 09/06/2023 10:31 AM EDT Comment:Peripheral culture Narrative Resulting Agency Comment Spec In Lab Adrianne Ramon MD MICROBIOLOGY - B LOOD ORDERABLES Performing Organization Address City/[facility]/ZIP Co de Phone Number [facility] [place] [address] documented in this encounter Visit Diagnoses Diagnosis Diffuse large B-cell lymphoma of lymph nodes of multiple regions Skin nodule Localized superficial swelling, mass, or lump documented in this encounter Care Teams Senior Vice President Relationship Specialty Start Date End Date Frederick Meade MD [address] [place] [address] PCP - General Family Medicine 11/29/17 documented as of this encounter
--- OUTSIDE RECORDS SUMMARY | 2023-10-17 03:26 | XMS_ITS | Encounter Summary ---
Author Organization [facility] [place] [address] Care Team Providers Care Credit Analyst Name Role Phone Frederick Meade MD Primary Care Provider [phone] Encounter Details Date Type Department Care Team [...] PM EDT TH Visit (TeleHealth) Hematology/Oncology at [address] [phone] Adrianne Ramon MD [facility] H[place]ATOLOGY [place] [address] Yael Merlos APRN [facility] [place]ATOLOGY [place] [address] 10/17/2023 1:30 PM EDT Infusion Hematology Oncology at [address] [phone] 10/26/2023 9:00 AM EDT Office Visit Hematology [place] [phone] Reynold Proctor MD [facility] [place] [address] 11/14/2023 9:30 AM EDT Office Visit Hematology/Oncology at [address] [phone] Adrianne Ramon MD [facility] HEMATOLOGY [place] [address] Yael Merlos APRN [facility] [place]EMATOLOGY [place] [address] 11/14/2023 10:00 AM EDT Infusion Hematology Oncology at [address] [phone] documented as of this encounter Visit Diagnoses Not on filedocumented in this encounter Care Teams Credit Analyst Relationship Specialty Start Date End Date Frederick Meade MD [address] [place], [place] [id number] PCP - General Family Medicine 11/29/17 documented as of this encounter
--- OUTSIDE RECORDS SUMMARY | 2023-10-17 03:26 | XMS_ITS | Encounter Summary ---
Author Organization [facility]ending [facility] Address [facility] [place] [address] Care Team Providers Care Manager Personnel Selection Name Role Phone Frederick Meade MD Primary Care Provider [phone] Reason for Visit * Reason Onset Date Comments Follow-up 09/19/[address] obrien thru [facility] Encounter Details Date Type Department Care Team (Late st Contact Info) Description 09/19/2023 Telephone Hematology/Oncology at [address] [phone] Polly Orellana, OSCAR Follow-up (Possible [...] - 09/19/2023 11:05 AM EDT Spoke with [employer] pt assistance foundation. Pt at present received revlimid with a copay of 157$ after getting $4000 thru [employer]. He is getting drug from [facility]. When next script is sent in if pt still has high copay and there is no funding we can call [facility] at [phone] fax [phone] and request assistance for pt again and they will resubmit the paper work they have on him for free drug. documented in this encounter Plan of Treatment Upcoming Encounters Date Type Department Care Team (Late st Contact Info) Description 10/17/2023 1:00 PM EDT TH Visit (TeleHealth) Hematology/Oncology at [address] [phone] Adrianne Ramon MD [facility] HEMATOLOGY [place] [address] Yael Merlos APRN [facility] HEMATOLOGY [place] [address] 10/17/2023 1:30 PM EDT Infusion Hematology Oncology at [address] [phone] 10/26/2023 9:00 AM EDT Office Visit Hematology [place] [address] Reynold Proctor MD [facility] [place] [address] 11/14/2023 9:30 AM EDT Office Visit Hematology/Oncology at [address] [phone] Adrianne Ramon MD [facility] [address] [place] [address] Yael Merlos, INTERNATIONAL TRADE MANAGER [facility] [address] [place] [address] 11/14/2023 10:00 AM EDT Infusion Hematology Oncology at [address] [phone] documented as of this encounter Visit Diagnoses Not on filedocumented in this encounter Care Teams Manager Personnel Selection Relationship Specialty Start Date End Date Frederick Meade MD [address] [place] [address] [address] [place] [address] PCP - General Family Medicine 11/29/17 documented as of this encounter
--- OUTSIDE RECORDS SUMMARY | 2023-10-17 03:26 | XMS_ITS | Encounter Summary ---
Author Organization [facility] [place] [address] Care Team Providers Care Hand Violin Maker Name Role Phone Frederick Meade MD Primary Care Provider [phone] Reason for Referral * Diagnostic Test (Routine) - Closed Specialty Diagnoses / Procedures Referred By Contac t Referred To Contact Radiology Diagnoses Diffuse large B-cell lymphoma of lymph nodes of multiple regions Skin nodule Procedures IR Biopsy Lymph Node (Chest/Abdomen/Pelvis) IR Biopsy Lymph Node (Head/Neck) Adrianne Ramon MD [facility] DR HEMATOLOGY [place] [address] [place] [address] Referral ID Status Reason Start Date Expiration Date V isits Requested Visits Authorized [id number] Closed Specialty Service Requested 08/22/2023 02/21/2025 1 1 Reason for Visit * Diagnostic Test (Routine) - Closed Specialty Diagnoses / Procedures Referred By Contac t Referred To Contact Radiology Diagnoses Diffuse large B-cell lymphoma of lymph nodes of multiple regions Skin nodule Procedures IR Biopsy Lymph Node (Chest/Abdomen/Pelvis) IR Biopsy Lymph Node (Head/Neck) Adrianne Ramon MD [facility] DR HEMATOLOGY [place] [address] [facility] [place] [address] Referral ID Status Reason Start Date Expiration Date V isits Requested Visits Authorized [id number] Closed Specialty Service Requested 08/22/2023 02/21/2025 1 1 Encounter Details Date Type Department Care Team (Late st Contact Info) Description 09/06/2023 10:15 AM EDT - 09/06/2023 12:58 PM EDT Hospital En[place] [address] Adrianne Ramon MD [facility] DR HEMATOLOGY [place] [address] Diffuse large B-cell lymphoma of [...] Caldwell RN - 09/06/2023 9:38 AM EDT [facility] Vascular and Interventional Radiology Lymph node [...] be reported to you by your primary multi care technician or the clinician who ordered the biopsy. Please do not call us for results as we will not have them. If you have not been contacted by your clinician within 5 business days you should call that officefor further information. When to call the Interventional Radiology Department: Please call with any questions or concerns. If it is during regular office hours, please call [phone]. If it is after regular office hours, or on weekends or holidays, please call [phone] and ask to speak to the Special Education Curriculum Specialist demonstrator electric gas appliances for Interventional Radiology. ---- documented in this [...] : 1950 AGE: 73 y.o. Address: [address] [place] [address] [address] [facility] [address] Phone: [phone] (home) Mobile: Telephone Information: Referring Provider: Adrianne Ramon REASON FOR VISIT: Order Questions Answers Where will study be performed? [facility] Radiology [120] To be scheduled Ordering department [...] Questions Answers Where will study be performed? [facility] Radiology [120] To be scheduled Ordering department [...] IR Mediport Placement 10/17/2022 Gail Jha PA [facility] INTERVENTIONL RAD IR MEDIPORT REMOVAL 03/29/2023 IR Mediport Removal 03/29/2023 Ole Arvizu MD [facility] INTERVENTIONL RAD TONSILLECTOMY 1958 Social history and [...] EDT TH Visit (TeleHealth) Hematology/Oncology at [address] [phone] Adrianne Ramon MD [facility] HEMATOLOGY [place] [address] Yael Merlos APRN [facility] HEMATOLOGY [place] [address] 10/17/2023 1:30 PM EDT Infusion Hematology Oncology at [address] [phone] 10/26/2023 9:00 AM EDT Office Visit Hematology [place] [address] Reynold Proctor MD [facility] [place] [address] 11/14/2023 9:30 AM EDT Office Visit Hematology/Oncology at [address] [phone] Adrianne Ramon MD [facility] HEMATOLOGY [place] [address] Yael Merlos APRN [facility] HEMATOLOGY [place] [address] 11/14/2023 10:00 AM EDT Infusion Hematology Oncology at [address] [phone] Pending Results Name Type Priority Associated Diagnoses [...] performed this procedure. ? Adrianne Ramon MD [facility] IR ORDERABLE S * Flow Cytometry Report (09/06/2023 12:28 PM EDT) Flow Cytometry Report [id number] ? Location: [facility] The signing pathologist has (i) examined the relevant preparation(s) for the specimen(s) and (ii) rendered or confirmed the diagnosis(es). . ?Flow Cytometry DIAGNOSIS ? 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 See comment. Electronically signed by: ?Dana OCASIO, Filemon Verified: ??09/10/2023 15:05 ??Hematopathologist Performed at: ??-[facility] [place]ology, [place] [address] Counter Clerk [employer]ractor [employer]: Katherine Lopez MD, FCAP, ??CLIA Certificate: [id number] DISCUSSION The T-lymphocytes , B- lymphocytes and [...] by the Clinical Flow Cytometry Laboratory at [facility]. It has not been cleared [...] high complexity clinical laboratory testing. SPECIMEN PROCESSING [id number] Cells for immunophenotypic analysis were derived from LEFT AUX LYMPH NODE. CD45 vs side scatter gating was utilized to identify a LYMPHOID analysis region that comprises approximately 95-97% of all cells. The following markers were assessed: CD2, CD3, CD4, CD5, CD7, CD8, CD10, CD19, CD20, CD23, CD38, CD45, CD56, FMC-7, kappa light chain, and lambda light chain. CLINICAL INFORMATION dlbcl [facility] 09/06/2023 12:2 8 PM EDT Micha Pearl MD PATHOLOGY/CYTOLOGY O RDERABLES [facility] [place] [address] * Immunophenotyping Flow Cytometry (09/06/2023 12:28 PM EDT) Immunophenotyping Flow See Comment [facility] Comment: When completed by the Pathologist, the Flow Cytometry Report ([id number]) will display under the Pathology Results section within eDH. Other 09/06/2023 12:2 8 PM EDT 09/06/2023 12:47 PM EDT Narrative Resulting Agency Comment Spec In Lab Micha Pearl MD HEMATOLOGY ORDERABLE S [facility] [place] [id number] * Flow Cytometry Report (09/06/2023 11:40 AM EDT) Flow Cytometry Report [id number] ? Location: [facility] The signing pathologist has (i) examined the relevant preparation(s) for the specimen(s) and (ii) rendered or confirmed the diagnosis(es). . ?Flow Cytometry DIAGNOSIS Flow cytometric diagnosis: ?? No ??B-cell population or phenotypically abnormal T-cell population is detected. Electronically signed by: ?Dana OCASIO, Filemon Verified: ??09/07/2023 15:52 ??Hematopathologist Performed at: ??-[facility] [place], [place] [address] Counter Clerk [employer]: Katherine Lopez MD, FCAP, ??CLIA Certificate: [id number] DISCUSSION Blasts based on CD45 expression and [...] 5, 7). There is no increase in PF34-bnbqmmub/CD3-n eg NK cells. Flow analysis is an ancillary study. A definite diagnosis requires correlation with the morphologic features of this process and if necessary, correlation with other ancillary studies like immunohistochemistr y, enzyme cytochemistry and/or cyto/ molecular genetics. This test was developed and its performance characteristics determined by the Clinical Flow Cytometry Laboratory at [facility]. It has not been cleared [...] high complexity clinical laboratory testing. SPECIMEN PROCESSING [id number] Cells for immunophenotypic analysis were derived from left arm collection. CD45 vs side scatter gating was utilized to identify a lymphoid analysis region that comprises approximately 18-27% of all cells. The following markers were assessed: CD2, CD3, CD4, CD5, CD7, CD8, CD10, CD19, CD45, CD56, kappa light chain, and lambda light chain. CLINICAL INFORMATION [facility] 09/06/2023 11:4 0 AM EDT James Champion DO PATHOLOGY/CYTOLOGY O RDERABLES Performing Organization Address City/[facility]/ZIP Co de Phone Number [facility] [place] [address] * Immunophenotyping Flow Cytometry (09/06/2023 11:40 AM EDT) Immunophenotyping Flow See Comment [facility] Comment: When completed by the Pathologist, the Flow Cytometry Report ([id number]) will display under the Pathology Results section within eDH. Other 09/06/2023 11:4 0 AM EDT 09/06/2023 12:11 PM EDT Narrative Resulting Agency Comment Spec In Lab James Champion DO HEMATOLOGY ORDERABLE S Performing Organization Address City/[facility]/ZIP Co de Phone Number [facility] [place] [address] * chromo report acquired (09/06/2023 11:35 AM EDT) Cytogenetics Acquired Report Final Report ? [id number] Specimen Type: Fixed Tissue Specimen Condition: 1 [...] using dual-color, break-apart probes for BCL6/3q27 rearrangement ([employer] shows a signal pattern consistent with a BCL6 rearrangement in 0% of 100 cells. This is within the acceptable reference limits (0-7.4%). Thus, there is no evidence for BCL6/3q27 gene rearrangement. Interphase FISH analysis using dual-color, break-apart probes for MYC/8q24 rearrangement ([employer] shows 0% of 100 cells with a MYC rearrangement signal pattern. This is within acceptable reference limits (0-6.0%). Thus, there is no evidence for MYC/8q24 gene rearrangement. Interphase FISH analysis using dual-color, dual-fusion probes for MYC-IGH/t(8;14)(q2 4;q32) ([employer] shows 0% of 100 cells with [...] dual-color break-apart probes for BCL2/18q21 rearrangement ([employer] shows 0% of 100 cells with [...] its performance characteristics were determined by the [facility] ([facility] Cytogenetics Laboratory as required [...] test? s accuracy and precision. The [facility] Cyt[place] is certified under the CLIA? 88 as qualified to perform high complexity clinical laboratory testing. Chromosome alterations outside the regions complementary to these DNA FISH probes will not be detected. 09.20.23 (Electronic Signature) Verified By: Channing Ph.D., [facility], Tommy A Clinical Warranty Clerk/Mol ecular Ekg Technician [facility] 09/06/2023 11:3 5 AM EDT 09/11/2023 8:57 AM EDT James Champion DO HEMATOLOGY ORDERABLE S [facility] [place] [address] * (ABNORMAL) Surgical Pathology Report (09/06/2023 11:35 AM EDT) Surgical Pathology Report [id number] ? Location: [facility] The signing pathologist has (i) [...] Verified: ??09/10/2023 18:38 ??Hematopathologist Performed at: ??-[facility] [place], [place] [address] Counter Clerk [employer]: Katherine Lopez MD, FCAP, ??CLIA Certificate: [id number] SYNOPTIC THIS RESULT REQUIRES PHYSICIAN/A.P.P. FOLLOW UP [...] lymphoid neoplasms . Blood . 2016. 127 (20):0012-1771. Rafael CP et al . Blood 103:275-282 [...] submitted in 2 cassettes labeled B1-B2. ??CCP(A) [facility] 09/06/2023 11:3 5 AM EDT James Champion DO PATHOLOGY/CYTOLOGY O RDERABLES [facility] [place] [address] * Anaerobic Culture (09/06/2023 11:25 AM EDT) Anaerobic Culture No anaerobic organisms isolated [facility] Arm 09/06/2023 11:2 5 AM EDT 09/06/2023 12:21 PM EDT Comment:Left Arm Collection versus mass Narrative Resulting Agency Comment Spec In Lab James Champion DO MICROBIOLOGY - GENER AL ORDERABLES Performing Organization Address [facility] de Phone Number [facility] [place] [address] * Tissue culture (09/06/2023 11:25 AM EDT) Tissue Culture No growth [facility] Gram Stain Few Neutrophils seen No microorganisms seen. [facility] Arm 09/06/2023 11:2 5 AM EDT 09/06/2023 12:21 PM EDT Comment:Left Arm Collection versus mass Narrative Resulting Agency Comment Spec In Lab James Champion DO MICROBIOLOGY - GENER AL ORDERABLES Performing Organization Address [facility] de Phone Number [facility] [place] [address] * Calcofluor White Stain (09/06/2023 11:25 AM EDT) Calcofluor Stain Calcofluor White Preparation: Negative [facility] Other 09/06/2023 11:2 5 AM EDT 09/06/2023 12:21 PM EDT Comment:Left Arm Collection versus Mass Narrative Resulting Agency Comment Spec In Lab Jmaes Champion DO MICROBIOLOGY - GENER AL ORDERABLES Performing Organization Address [facility] Co de Phone Number [facility] [place] [address] * Fungus culture (09/06/2023 11:25 AM EDT) Fungus Culture No Fungus isolated [facility] Other 09/06/2023 11:2 5 AM EDT 09/06/2023 12:21 PM EDT Comment:Left Arm Collection versus Mass Narrative Resulting Agency Comment Spec In Lab James Champion DO MICROBIOLOGY - GENER AL ORDERABLES [facility] [place] [address] * Specimen to Pathology (09/06/2023 11:20 AM EDT) AP Specimen 09/06/2023 11:2 0 AM EDT 09/06/2023 11:20 AM EDT Narrative [facility] - 09/06/2023 11:20 AM EDT Specimen requisition ordered. ??Separate Pathology report to follow James Champion DO PATHOLOGY/CYTOLOGY O RDERABLES Performing Organization Address [facility]/ZIP Co de Phone Number [facility] [place] [address] * Specimen to Pathology (09/06/2023 10:43 AM EDT) AP Specimen 09/06/2023 10:4 3 AM EDT 09/06/2023 10:43 AM EDT Narrative [facility] - 09/06/2023 10:43 AM EDT Specimen requisition ordered. ??Separate Pathology report to follow Micha Pearl MD PATHOLOGY/CYTOLOGY O RDLOGAN Performing Organization Address [facility]/ZIP Co de Phone Number [facility] [place] [address] * Cytopathology Non-Gynecological (09/06/2023 10:41 AM EDT) AP Specimen 09/06/2023 10:4 1 AM EDT 09/06/2023 10:41 AM EDT Narrative [facility] - 09/06/2023 10:41 AM EDT Specimen requisition ordered. ??Separate Pathology report to follow Micha Pearl MD PATHOLOGY/CYTOLOGY O RDERABLES Performing Organization Address [facility]/[place] [address] documented in this encounter Visit Diagnoses Diagnosis [...] mg documented in this encounter Care Teams Hand Violin Maker Relationship Specialty Start Date End Date Frederick Meade MD [address] [place] [address] PCP - General Family Medicine 11/29/17 documented as of this encounter
--- OUTSIDE RECORDS SUMMARY | 2023-10-17 03:26 | XMS_ITS | Encounter Summary ---
Author [place] [address] Care Team Providers Care Dump Motorman Name Role Phone Frederick Meade MD Primary Care Provider [phone] Reason for Referral * Diagnostic Test (Routine) - Closed Specialty Diagnoses / Procedures Referred By Contac t Referred To Contact Radiology Diagnoses Diffuse large B-cell lymphoma of lymph nodes of multiple regions Procedures IR Mediport Removal Yael Merlos SUBSTITUTE NURSE [facility] [place] [address] [facility] [place] [address] Referral ID Status Reason Start Date Expiration Date V isits Requested Visits Authorized [id number] Closed Specialty Service Requested 03/15/2023 09/12/2024 1 1 Reason for Visit * Diagnostic Test (Routine) - Closed Specialty Diagnoses / Procedures Referred By Contac t Referred To Contact Radiology Diagnoses Diffuse large B-cell lymphoma of lymph nodes of multiple regions Procedures IR Mediport Removal Yael Merlos SUBSTITUTE NURSE [facility] [place] [address] [facility] [place] [address] Referral ID Status Reason Start Date Expiration Date V isits Requested Visits Authorized [id number] Closed Specialty Service Requested 03/15/2023 09/12/2024 1 1 Encounter Details Date Type Department Care Team (Latest Contact Info) Description 03/29/2023 12:51 PM EST - 03/29/2023 11:59 PM EST Hospital Encounter Radiology at [facility] [place] [address] Yael Merlos APRN [facility] [place] [address] Diffuse large B-cell lymphoma of lymph nodes [...] Zacarias RN - 03/29/2023 2:08 PM EST [facility] Vascular and Interventional Radiology Discharge Instructions for [...] not peel them off. There may be [place]en (skin glue) also, allow this to flake [...] is during regular office hours, please call [phone]. If it is after regular office hours, or on weekends or holidays, please call [phone] and ask to speak to the Unix Developer application development intern for Interventional Radiology. You have received medication [...] of : 1950 AGE: 72 y.o. Address: [address] [place] [address] Phone: [phone] (home) Mobile: Telephone Information: Referring Provider: Yael Merlos REASON FOR VISIT: Order Questions Answers Where will study be performed? [facility] Radiology [120] Reason for exam and [...] EDT TH Visit (TeleHealth) Hematology/Oncology at [address] [phone] Adrianne Ramon MD [facility] [place] [address] Yael Merlos, SUBSTITUTE NURSE [facility] [place] [address] 10/17/2023 1:30 PM EDT Infusion Hematology Oncology at [address] [phone] 10/26/2023 9:00 AM EDT Office Visit Hematology [place] [address] Reynold Proctor MD [facility] [place] [address] 11/14/2023 9:30 AM EDT Office Visit Hematology/Oncology at [address] [phone] Adrianne Ramon MD [facility] DR HEMATOLOGY [place] [address] Yael Merlos APRN [facility] [place] [address] 11/14/2023 10:00 AM EDT Infusion Hematology Oncology at [address] [phone] documented as of this encounter Procedures Procedure [...] venous port with all components accounted for. barrel roller operator: ??Chalo Crews PA-C Attending of record: Ole Arvizu MD 03/29/2023 Yael Merlos SUBSTITUTE NURSE [facility] IR ORDERABLES documented in this encounter [...] section) documented in this encounter Care Teams Dump Motorman Relationship Specialty Start Date End Date Frederick Meade MD [address] [place] [address] PCP - General Family Medicine 11/29/17 documented as of this encounter
--- OUTSIDE RECORDS SUMMARY | 2023-10-17 03:26 | XMS_ITS | Encounter Summary ---
Author Organization [facility] [place] [address] Care Team Providers Care Hunter Skin Diver Name Role Phone Frederick Meade MD Primary Care Provider [phone] Encounter Details Date Type Department Care Team [...] EDT TH Visit (TeleHealth) Hematology/Oncology at [address] [phone] Adrianne Ramon MD [facility] HEMATOLOGY [place] [address] Yael Merlos APRN [facility] [place]EMATOLOGY [place] [address] 10/17/2023 1:30 PM EDT Infusion Hematology Oncology at [address] [phone] 10/26/2023 9:00 AM EDT Office Visit Hematology [place] [address] Reynold Proctor MD [facility] [place] [address] 11/14/2023 9:30 AM EDT Office Visit Hematology/Oncology at [address] [phone] Adrianne Ramon MD [facility] HEMATOLOGY [place] [address] Yael Merlos APRN [facility] HEMATOLOGY [place] [address] 11/14/2023 10:00 AM EDT Infusion Hematology Oncology at [address] [phone] documented as of this encounter Visit Diagnoses Not on filedocumented in this encounter Care Teams Hunter Skin Diver Relationship Specialty Start Date End Date Frederick Meade MD [address] [place], [place] [id number] PCP - General Family Medicine 11/29/17 documented as of this encounter
--- OUTSIDE RECORDS SUMMARY | 2023-10-17 03:26 | XMS_ITS | Encounter Summary ---
Author Organization [facility] Address [facility] [place] [address] Care Team Providers Care Pipe Changer Name Role Phone Frederick Meade MD Primary Care Provider [phone] Reason for Visit * Reason Comments Chemotherapy * Treatment/Therapy Plan Authorization (Routine) - Closed Specialty Diagnoses / Procedures Referred By Contac t Referred To Contact Hematology and Oncology Diagnoses Diffuse large B-cell lymphoma of lymph nodes of multiple regions Adrianne Ramon MD [facility] DR HEMATOLOGY [place] [address] Stj Hem Onc Infusion [address] [place] [phone] Referral ID Status Reason Start Date Expiration Date Visits Re quested Visits Authorized [id number] Closed 09/12/2023 09/11/2024 99 99 Encounter Details Date Type Department Care Team (Late st Contact Info) Description 09/19/2023 8:00 AM EDT Infusion Hematology Oncology at [address] [phone] Diffuse large B-cell lymphoma of [...] treatment. OBJECTIVE LAB DATA: completed today at [facility] Pre administration: Chemotherapy orders independently verified [...] EDT TH Visit (TeleHealth) Hematology/Oncology at [address] [phone] Adrianne Ramon MD [facility] DR HEMATOLOGY [place] [address] Yael Merlos APRN [facility] DR HEMATOLOGY [place] [address] 10/17/2023 1:30 PM EDT Infusion Hematology Oncology at [address] [phone] 10/26/2023 9:00 AM EDT Office Visit Hematology [place] [address] Reynold Proctor MD [facility] [place] [address] 11/14/2023 9:30 AM EDT Office Visit Hematology/Oncology at [address] [phone] Adrianne Ramon MD [facility] DR HEMATOLOGY [place] [address] Yael Merlos APRN [facility] HEMATOLOGY [place] [address] 11/14/2023 10:00 AM EDT Infusion Hematology Oncology at [address] [phone] documented as of this encounter [...] mL/hr documented in this encounter Care Teams Pipe Changer Relationship Specialty Start Date End Date Frederick Meade MD [address] [facility] [address] [place] [address] PCP - General Family Medicine 11/29/17 documented as of this encounter
--- OUTSIDE RECORDS SUMMARY | 2023-10-17 03:26 | XMS_ITS | Encounter Summary ---
Author Organization [facility] Address [facility] [place] [address] Care Team Providers Care Archives Director Name Role Phone Frederick Meade MD Primary Care Provider +1 [phone] Encounter Details Date Type Department Care Team (Late st Contact Info) Description 03/14/2023 11:30 AM EST Office Visit Hematology/Oncology at [address] [phone] Adrianne Ramon MD [facility] DR HEMATOLOGY [place] [address] Yael Merlos APRN [facility] DR HEMATOLOGY [place] [address] Diffuse large B-cell lymphoma of lymph nodes [...] - 03/14/2023 11:30 AM EST Hematology Clinic [facility] [place] [address] HEMATOLOGY PATIENT EVALUATION PROBLEM LIST: Patient Active [...] ~2 weeks ago saw [facility] in [facility] and when to [facility]. No beds so sent to [facility] for [address] CAP, MRI,and [...] - unclear cause. - last COLO at [facility] was 01/17/2012. INTERIM HISTORY [...] and needle of cervical LN. FISH from [place] No MYCrearrangement and no fusion of MYC [...] himself and naps dailyas needed during the piat of cycle Pain: No Appetite: good Unexpected [...] only 1 biologic. Son Cheo Freire. Enjoys [employer], movies, race car, cards. [employer] 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 Not a . ETOH: 1-3 beers per week Smoking: Quit 1985. Approximately 02-dmtb-ejmw history Vaping or electronic cigarettes: denies Chewing [...] is a delightful 72-year old male in [facility]. He is accompanied to [...] and BCL-2 protein (Double Expressor.) Flow cytometry ([id number]) supports this interpretation. FISH from [place] No MYC rearrangement and no fusion of MYC and IGH was observed, CD3 (SP7, Thermo Scientific) Background T-cells CD20 (L26, [place]) diffusely positive in Neoplastic B-cells PAX-5 (1EW, Leica) diffusely positive in Neoplastic B-cells CD10 (SP67, [place]) Negative BCL-6 (G/191E/A8, [place]) Positive MUM-1 (MUM1p, Dako) Positive Myc (Y69, Abcam) Positive BCL-2 Oncoprotein (124, [place]) Positive Ki67 (MIB-1) (K2, Leica) Greater than 95% of cells in cycle Cyclin D1(SP4-R, [place]) Negative SAPPHIRE JOSE ([id number], Leica) Negative. DIAGNOSTICS: 01/25/23 ECHO after C#5 [...] undergo investigation with ultrasound. CT CAP at [facility], report and images have been requested. [...] LVEF at 50-55%. --asymptomatic --repeat echo at [facility] 1 year post completion [...] to Feb 2028. Send PET images to [facility] for future comparison w/ surveillance [...] EDT TH Visit (TeleHealth) Hematology/Oncology at [address] [phone] Adrianne Ramon MD [facility] DR HEMATOLOGY [place] [address] Yael Merlos APRN [facility] HEMATOLOGY [place] [address] 10/17/2023 1:30 PM EDT Infusion Hematology Oncology at [address] [phone] 10/26/2023 9:00 AM EDT Office Visit [place]ematology [place] [address] Reynold Proctor MD [facility] [place] [address] 11/14/2023 9:30 AM EDT Office Visit Hematology/Oncology at [address] [phone] Adrianne Ramon MD [facility] DR HEMATOLOGY [place] [address] Yael Merlos APRN [facility] HEMATOLOGY [place] [address] 11/14/2023 10:00 AM EDT Infusion Hematology Oncology at [address] [phone] documented as of this encounter Visit Diagnoses Diagnosis Diffuse large B-cell lymphoma of lymph nodes of multiple regions Iron deficiency anemia, unspecified iron deficiency anemia type documented in this encounter Care Teams Archives Director Relationship Specialty Start Date End Date Frederick Meade MD [address] [place] [address] [address] [facility] [address] [place] [address] PCP - General Family Medicine 11/29/17 documented as of this encounter
--- OUTSIDE RECORDS SUMMARY | 2023-10-17 03:26 | XMS_ITS | Encounter Summary ---
[place] [address] Care Team Providers Care Auto Dealership Porter Name Role Phone Frederick Meade MD Primary Care Provider [phone] [phone] Encounter Details Date Type Department Care Team (Late st Contact Info) Description 06/22/2023 Orders Only [place]ematology [place] [phone] Deidre Silverio Social History Tobacco Use Types [...] EDT TH Visit (TeleHealth) Hematology/Oncology at [address] [phone] Adrianne Ramon MD [facility] DR HEMATOLOGY [place] [address] Yael Merlos APRN [facility] HEMATOLOGY [place] [address] 10/17/2023 1:30 PM EDT Infusion Hematology Oncology at [address] [phone] 10/26/2023 9:00 AM EDT Office Visit [place]ematology [place] [address] Reynold Proctor MD [facility] [place] [address] 11/14/2023 9:30 AM EDT Office Visit Hematology/Oncology at [address] [address] Adrianne Ramon MD [facility] HEMATOLOGY [place] [address] Yael Merlos APRN [facility] DR HEMATOLOGY [place] [address] 11/14/2023 10:00 AM EDT Infusion Hematology Oncology at [address] [address] documented as of this encounter Visit Diagnoses Not on filedocumented in this encounter Care Teams Auto Dealership Porter Relationship Specialty Start Date End Date Frederick Meade MD [address] [place] [address] PCP - General Family Medicine 11/29/17 documented as of this encounter
--- OUTSIDE RECORDS SUMMARY | 2023-10-17 03:26 | XMS_ITS | Encounter Summary ---
Author Organization [facility] [place] [address] Care Team Providers Care Floral Design Teacher Name Role Phone Frederick Meade MD Primary Care Provider +1 [phone] Encounter Details Date Type Department Care Team [...] EDT TH Visit (TeleHealth) Hematology/Oncology at [address] [phone] Adrianne Ramon MD [facility] HEMATOLOGY [place] [address] Yael Merlos APRN [facility] HEMATOLOGY [place] [address] 10/17/2023 1:30 PM EDT Infusion Hematology Oncology at [address] [phone] 10/26/2023 9:00 AM EDT Office Visit Hematology [place] [address] Reynold Proctor MD [facility] [place] [address] 11/14/2023 9:30 AM EDT Office Visit Hematology/Oncology at [address] [phone] Adrianne Ramon MD [facility] HEMATOLOGY [place] [address] Yael Merlos APRN [facility] HEMATOLOGY [place] [address] 11/14/2023 10:00 AM EDT Infusion Hematology Oncology at [address] [phone] documented as of this encounter Visit Diagnoses Not on filedocumented in this encounter Care Teams Floral Design Teacher Relationship Specialty Start Date End Date Frederick Meade MD [address] [place], [place] [id number] PCP - General Family Medicine 11/29/17 documented as of this encounter
--- OUTSIDE RECORDS SUMMARY | 2023-10-17 03:26 | XMS_ITS | Encounter Summary ---
[place] [address] Care Team Providers Care Slate Roofer Name Role Phone Frederick Meade MD Primary Care Provider +1 [phone] Reason for Referral * Diagnostic Test (Routine) - Authorized Specialty Diagnoses / Procedures Referred By Contac t Referred To Contact Radiology Diagnoses Diffuse large B-cell lymphoma of lymph nodes of multiple regions Procedures CT Neck Soft Tissue w Contrast (Generic) Yael Merlos PAN CLEANER [facility] DR [place] [address] Referral ID Status Reason Start Date Expiration Date Visits Requested Visits Authorized [id number] Authorized Specialty Service Requested 06/13/2023 12/12/2024 1 1 * Diagnostic Test (Routine) - Authorized Specialty Diagnoses / Procedures Referred By Contac t Referred To Contact Radiology Diagnoses Diffuse large B-cell lymphoma of lymph nodes of multiple regions Procedures CT Chest Abdomen Pelvis w Contrast (Generic) Yael Merlos APRN [facility] DR [place] [address] Referral ID Status Reason Start Date Expiration Date Visits Requested Visits Authorized [id number] Authorized Specialty Service Requested 06/13/2023 12/12/2024 1 1 Reason for Visit * Reason Comments Follow-up Encounter Details Date Type Department Care Team (Late st Contact Info) Description 06/13/2023 11:00 AM EDT Office Visit Hematology/Oncology at [address] [phone] Adrianne Ramon MD [facility] DR [place] [address] Yael Merlos APRN [facility] [place] [address] Diffuse large B-cell lymphoma of lymph nodes [...] this encounter Progress Notes * Yael Merlos, PAN CLEANER - 06/13/2023 11:00 AM EDT Hematology Clinic [facility] [place] [address] HEMATOLOGY PATIENT EVALUATION PROBLEM LIST: Patient Active [...] [facility] and when to [facility]. [facility] beds [facility] [place] using his bike. They are opening their king island again inviting in close friends and family and beginning to extends back out in their social [place] which is quite reasonable at this point. No new health-related concerns. 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 6 mos of adjuvant Lupron. Total dose 79.2 Gy completed 01/26/15 09/29/22 Large B Cell lymphoma - biopsy of tongue and needle of cervical LN. FISH from [place] No MYCrearrangement and no fusion of MYC [...] only 1 biologic. Son Cheo Freire. Enjoys [employer], movies, race car, [employer]. [employer]. 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 Not a . ETOH: 1-3 beers per week Smoking: Quit 1985. Approximately 31-aqzx-dbgl history Vaping or electronic cigarettes: denies Chewing [...] lb) SpO2 97% BMI 32.39 kg/m?? GENERAL: Choe Freire is a delightful 73-year old male in [facility]. He [...] and BCL-2 protein (Double Expressor.) Flow cytometry ([id number]) supports this interpretation. FISH from [place] No MYC rearrangement and no fusion of MYC and IGH was observed, CD3 (SP7, Thermo Scientific) Background T-cells CD20 (L26, [place]) diffusely positive in Neoplastic B-cells PAX-5 (1EW, Leica) diffusely positive in Neoplastic B-cells CD10 (SP67, [place]) Negative BCL-6 (G/191E/A8, [place]) Positive MUM-1 (MUM1p, Dako) Positive Myc (Y69, Abcam) Positive BCL-2 Oncoprotein (124, [place]) Positive Ki67 (MIB-1) (K2, Leica) Greater than 95% of cells in cycle Cyclin D1(SP4-R, [place]) Negative SAPPHIRE JOSE ([id number], Leica) Negative. DIAGNOSTICS: 01/25/23 ECHO after C#5 [...] LVEF at 50-55%. --asymptomatic --repeat echo at [facility] 1 year post completion of therapy [due [...] and counseling as appropriate. Yael Merlos, MSN, PAN CLEANER Nurse Practitioner Section of Hematology Copy Frederick Meade MD documented in this encounter Plan of Treatment Upcoming Encounters Date Type Department Care Team (Late st Contact Info) Description 10/17/2023 1:00 PM EDT TH Visit (TeleHealth) Hematology/Oncology at [address] [phone] Adrianne Ramon MD [facility] [place] [address] Yael Merlos APRN [facility] [place] [address] 10/17/2023 1:30 PM EDT Infusion Hematology Oncology at [address] [phone] 10/26/2023 9:00 AM EDT Office Visit [place]ematology [place] [address] Reynold Proctor MD [facility] [place] [address] 11/14/2023 9:30 AM EDT Office Visit Hematology/Oncology at [address] [phone] Adrianne Ramon MD [facility] HEMATOLOGY [place] [address] Yael Merlos, KARLA [facility] DR HEMATOLOGY AND ONCOLOGY [facility] [address] 11/14/2023 10:00 AM EDT Infusion Hematology Oncology at [address] [phone] Scheduled Orders Name Type Priority [...] type documented in this encounter Care Teams Slate Roofer Relationship Specialty Start Date End Date Frederick Meade MD [address] [place] [address] PCP - General Family Medicine 11/29/17 documented as of this encounter
--- OUTSIDE RECORDS SUMMARY | 2023-10-17 03:26 | XMS_ITS | Encounter Summary ---
Author Organization [facility] Address [facility] [place] [address] Care Team Providers Care Circuit Board Repair Technician Name Role Phone Frederick Meade MD Primary Care Provider [phone] [phone] Encounter Details Date Type Department Care Team (Late st Contact Info) Description 09/12/2023 Telephone Hematology/Oncology at [address] [phone] Adrianne Ramon MD [facility] DR HEMATOLOGY [place] [address] Social History Tobacco Use Types Packs/Day Years [...] Visit (TeleHealth) Hematology/Oncology at [address] [phone] Adrianne Ramon MD [facility] DR HEMATOLOGY [place] [address] Yael Merlos, KARLA [facility] DR HEMATOLOGY [place] [address] 10/17/2023 1:30 PM EDT Infusion Hematology Oncology at [address] [phone] 10/26/2023 9:00 AM EDT Office Visit Hematology [place] [address] Reynold Proctor MD [facility] [place] [address] 11/14/2023 9:30 AM EDT Office Visit Hematology/Oncology at [address] [phone] Adrianne Ramon MD [facility] DR HEMATOLOGY [place] [address] Yael Merlos APRN [facility] HEMATOLOGY [place] [address] 11/14/2023 10:00 AM EDT Infusion Hematology Oncology at [address] [phone] documented as of this encounter Visit Diagnoses Diagnosis Diffuse large B-cell lymphoma of lymph nodes of multiple regions documented in this encounter Care Teams Circuit Board Repair Technician Relationship Specialty Start Date End Date Frederick Meade MD [address] [place] [address] PCP - General Family Medicine 11/29/17 documented as of this encounter
--- OUTSIDE RECORDS SUMMARY | 2023-10-17 03:26 | XMS_ITS | Encounter Summary ---
[place] [address] Care Team Providers Care Oil Seal Assembler Name Role Phone Frederick Meade MD Primary Care Provider [phone] [phone] Reason for Referral * Diagnostic Test (Routine) - Closed Specialty Diagnoses / Procedures Referred By Contac t Referred To Contact Radiology Diagnoses Diffuse large B-cell lymphoma of lymph nodes of multiple regions Procedures IR Mediport Removal Yael Merlos TOWEL WEAVER [facility] [place] [address] [facility] [place] [address] Referral ID Status Reason Start Date Expiration Date V isits Requested Visits Authorized [id number] Closed Specialty Service Requested 03/15/2023 09/12/2024 1 1 Encounter Details Date Type Department Care Team (Late st Contact Info) Description 03/15/2023 Orders Only Hematology [place] [address] Yael Merlos TOWEL WEAVER [facility] [place] [address] Diffuse large B-cell lymphoma of [...] EDT TH Visit (TeleHealth) Hematology/Oncology at [address] [phone] Adrianne Ramon MD [facility] HEMATOLOGY [place] [address] Yeal Merlos, TOWEL WEAVER [facility] [place]Y [place] [address] 10/17/2023 1:30 PM EDT Infusion Hematology Oncology at [address] [phone] 10/26/2023 9:00 AM EDT Office Visit Hematology [place] [address] Reynold Proctor MD [facility] [place] [address] 11/14/2023 9:30 AM EDT Office Visit Hematology/Oncology at [address] [phone] Adrianne Ramon MD [facility] HEMATOLOGY [place] [address] Yael Merlos, TOWEL WEAVER [facility] [place] [address] 11/14/2023 10:00 AM EDT Infusion Hematology Oncology at [address] [phone] documented as of this encounter Results * IR Mediport Removal (03/29/2023 2:32 PM EST) Anatomical Region Laterality Modality X-Ray Angiograph y Narrative 2023 1:04 PM EST Interventional Radiology Procedure Note Procedure: Chest port explant Indication: Lymphoma, therapy complete, discontinue penitentiary central venous access for chemotherapy Pre-procedure: Informed [...] venous port with all components accounted for. 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
--- OUTSIDE RECORDS SUMMARY | 2023-10-17 03:26 | XMS_ITS | Encounter Summary ---
[place] [address] Care Team Providers Care Vice Squad Police Officer Name Role Phone Frederick Meade MD Primary Care Provider [phone] Reason for Referral * Diagnostic Test (Routine) - Closed Specialty Diagnoses / Procedures Referred By Contac t Referred To Contact Radiology Diagnoses Diffuse large B-cell lymphoma of lymph nodes of multiple regions Skin nodule Procedures NM PET CT Standard Plus Extremities and Head Adrianne Ramon MD [facility] DR [place] [address] [place] [address] Referral ID Status Reason Start Date Expiration Date V isits Requested Visits Authorized [id number] Closed Specialty Service Requested 08/22/2023 02/21/2025 1 1 Reason for Visit * Diagnostic Test (Routine) - Closed Specialty Diagnoses / Procedures Referred By Contac t Referred To Contact Radiology Diagnoses Diffuse large B-cell lymphoma of lymph nodes of multiple regions Skin nodule Procedures NM PET CT Standard Plus Extremities and Head Adrianne Ramon MD [facility] DR [place] [address] [place] [address] Referral ID Status Reason Start Date Expiration Date V isits Requested Visits Authorized [id number] Closed Specialty Service Requested 08/22/2023 02/21/2025 1 1 Encounter Details Date Type Department Care Team (Jaciel teixeira Contact Info) Description 09/06/2023 12:59 PM EDT Hospital Encounter [place] [address] Adrianne Ramon MD [facility] DR [place] [address] Diffuse large B-cell lymphoma of lymph nodes [...] EDT TH Visit (TeleHealth) Hematology/Oncology at [address] [phone] Adrianne Ramon MD [facility] DR [place] [address] Yael Merlos APRN [facility] [place] [address] 10/17/2023 1:30 PM EDT Infusion Hematology Oncology at [address] [phone] 10/26/2023 9:00 AM EDT Office Visit Hematology [place] [address] Reynold Proctor MD [facility] [place] [address] 11/14/2023 9:30 AM EDT Office Visit Hematology/Oncology at [address] [phone] Adrianne Ramon MD [facility] [place] [address] Yael Merlos APRN [facility] [place] [address] 11/14/2023 10:00 AM EDT Infusion Hematology Oncology at [address] [phone] documented as of this encounter Procedures Procedure Name Priority Date/Time Associated Diagnosis Comments NM PET CT STANDARD PLUS EXTREMITIES AND HEAD Routine 09/06/2023 2:45 PM EDT Diffuse large B-cell lymphoma of lymph nodes of multiple regions Skin nodule documented in this encounter Results * NM PET CT Standard Plus Extremities and Head (09/06/2023 2:45 PM EDT) WORKSTATION ID [id number] RAD Anatomical Region Laterality Modality Positron Emissio [...] who have questions please contact the health point of care technician that requested your imaging first. [...] unspecified. TECHNIQUE: Procedure: Following IV injection of 02-oszohq-3-deoxyglucose (FDG) a standard uptake of approximately 60 [...] unspecified. TECHNIQUE: Procedure: Following IV injection of 57-vrwpih-2-deoxyglucose(FDG) a standard uptake of approximately 60 minutes, [...] patients who have questions please contactthe health point of care technician that requested your imaging first. [...] Arm documented in this encounter Care Teams Vice Squad Police Officer Relationship Specialty Start Date End Date Frederick Meade MD [facility] [address] [facility] [address] [place] [address] PCP - General Family Medicine 11/29/17 documented as of this encounter
--- OUTSIDE RECORDS SUMMARY | 2023-10-17 03:26 | XMS_ITS | Encounter Summary ---
Author Organization [facility] [place] [address] Care Team Providers Care Gas Prover Name Role Phone Frederick Meade MD Primary Care Provider [phone] Encounter Details Date Type Department Care Team (Late st Contact Info) Description 09/19/2023 Orders Only Hematology [place] [address] Adrianne Ramon MD [facility] DR HEMATOLOGY [place] [address] Social History Tobacco Use Types Packs/Day Years [...] EDT TH Visit (TeleHealth) Hematology/Oncology at [address] [phone] Adrianne Ramon MD [facility] DR HEMATOLOGY [place] [address] Yael Merlos APRN [facility] HEMATOLOGY [place] [address] 10/17/2023 1:30 PM EDT Infusion Hematology Oncology at [address] [phone] 10/26/2023 9:00 AM EDT Office Visit Hematology [place] [address] Reynold Proctor MD [facility] [place] [address] 11/14/2023 9:30 AM EDT Office Visit Hematology/Oncology at [address] [phone] Adrianne Ramon MD [facility] DR HEMATOLOGY [place] [address] Yael Merlos APRN [facility] HEMATOLOGY [place] [address] 11/14/2023 10:00 AM EDT Infusion Hematology Oncology at [address] [phone] documented as of this encounter Visit Diagnoses Not on filedocumented in this encounter Care Teams Gas Prover Relationship Specialty Start Date End Date Frederick Meade MD [address] [place] [address] PCP - General Family Medicine 11/29/17 documented as of this encounter
--- OUTSIDE RECORDS SUMMARY | 2023-10-17 03:26 | XMS_ITS | Encounter Summary ---
[place] [address] Care Team Providers Care Code And Test Clerk Name Role Phone Frederick Meade MD Primary Care Provider +1 [phone] Reason for Referral * Diagnostic Test (Routine) - Closed Specialty Diagnoses / Procedures Referred By Contac t Referred To Contact Cardiology Diagnoses Diffuse large B-cell lymphoma of lymph nodes of multiple regions High risk medication use Procedures Echocardiogram Transthoracic Adrianne Ramon MD [facility] DR [place] [address] [facility] [address] [place] [address] Referral ID Status Reason Start Date Expiration Date V isits Requested Visits Authorized [id number] Closed Specialty Service Requested 09/12/2023 03/10/2024 1 1 * Consultation (Routine) - Closed Specialty Diagnoses / Procedures Referred By Contac t Referred To Contact Hematology and Oncology Diagnoses Diffuse large B-cell lymphoma of lymph nodes of multiple regions Adrianne Ramon MD [facility] DR [place] [address] [facility] [place] [place] Hem [address]c [address] [place] [address] Referral ID Status Reason Start Date Expiration Date V isits Requested Visits Authorized [id number] Closed Specialty Service Requested 09/12/2023 09/11/2024 1 1 Encounter Details Date Type Department Care Team (Late st Contact Info) Description 09/12/2023 10:15 AM EDT Office Visit Hematology/Oncology at [address] [phone] Adrianne Ramon MD [facility] HEMATOLOGY [place] [address] Yael Merlos APRN [facility] [place] [address] Diffuse large B-cell lymphoma of lymph nodes [...] original note were not included. Hematology Clinic [facility] [place] [address] HEMATOLOGY PATIENT EVALUATION PROBLEM LIST: Patient Active [...] [facility] and when to [facility]. No beds so sent to [facility] for [address] [...] - unclear cause. - last COLO at [facility] was 01/17/2012. INTERIM HISTORY [...] and needle of cervical LN. FISH from [place] No MYCrearrangement and no fusion of MYC [...] only 1 biologic. Son Cheo Freire. Enjoys [employer], [employer], race car, cards. [employer]. 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 Not a . ETOH: 1-3 beers per week Smoking: Quit 1985. Approximately 69-ckra-ungk history Vaping or electronic cigarettes: denies Chewing [...] is a delightful 73-year old male in [facility]. He is accompanied to the [...] and BCL-2 protein (Double Expressor.) Flow cytometry ([id number]) supports this interpretation. FISH from [place] No MYC rearrangement and no fusion of MYC and IGH was observed, CD3 (SP7, Thermo Scientific) Background T-cells CD20 (L26, Llano) diffusely positive in Neoplastic B-cells PAX-5 (1EW, Leica) diffusely positive in Neoplastic B-cells CD10 (SP67, Llano) Negative BCL-6 (G/191E/A8, Llano) Positive MUM-1 (MUM1p, Dako) Positive Myc (Y69, Abcam) Positive BCL-2 Oncoprotein (124, Llano) Positive Ki67 (MIB-1) (K2, Leica) Greater than 95% of cells in cycle Cyclin D1(SP4-R, Llano) Negative SAPPHIRE JOSE ([id number], Leica) Negative. DIAGNOSTICS: 01/25/23 ECHO after C#5 [...] 08/22/2023 left upper extremity ultrasound performed at [facility] Notable findings: In the left antecubital [...] undergo investigation with ultrasound. CT CAP at [facility], report and images have been requested. ASSESSMENT/PLAN: [...] at least 1 month spent locally at [facility] and local hospital. Unfortunately, because ofhis age, [...] concepts, and the time it entails at [facility]. This would be a significant commitment for the patient and his family as they live [place] half hours away from [facility]. They feel comfortable that they have the [...] applied for and distributed from the pharmaceutical [employer]. Side effects he might experience were explained to her and include fatigue, edema, dizziness, headache, pruritis, rash, GI upset including diarrhea, constipation, nausea, vomiting, myelosuppression, neut ropenic fever, infection, liver toxicity, neuropathy. Increased risk of DVT on lenalidomide and we discussed the need for full ASA 325mg daily prophylaxis. Recently there has a report of increase in arterial thrombosis (CVA/PR) as well. This risk is very small. [...] LVEF at 50-55%. --asymptomatic --repeat echo at [facility] 1 year post completion [...] from 09/06/23 biopsy Repeat ECHO when at [facility] for CAR-T cell discussion Referral to CAR-T [...] EDT TH Visit (TeleHealth) Hematology/Oncology at [address] [phone] Adrianne Ramon MD [facility] H[place]ATOLOGY [place] [address] Yael Merlos APRN [facility] [place] [address] 10/17/2023 1:30 PM EDT Infusion Hematology Oncology at [address] [phone] 10/26/2023 9:00 AM EDT Office Visit Hematology [place] [address] Reynold Proctor MD [facility] [place] [address] 11/14/2023 9:30 AM EDT Office Visit Hematology/Oncology at [address] [phone] Adrianne Ramon MD [facility] DR HEMAT[place] [address] Yael Merlos APRN [facility] DR [place]EMAT[place] [address] 11/14/2023 10:00 AM EDT Infusion Hematology Oncology at [address] [phone] Scheduled Orders Name Type Priority Associated Diagnoses [...] medications documented in this encounter Care Teams Code And Test Clerk Relationship Specialty Start Date End Date Frederick Meade MD [address] [place] [address] [address] [place] [address] PCP - General Family Medicine 11/29/17 documented as of this encounter
--- OUTSIDE RECORDS SUMMARY | 2023-10-17 03:27 | XMS_ITS | Encounter Summary ---
Author Organization [facility] Address [facility] [place] [address] Care Team Providers Care Platform Software Engineer Name Role Phone Frederick Meade MD Primary Care Provider [phone] [phone] Encounter Details Date Type Department Care Team (Late st Contact Info) Description 12/20/2022 Notes Only Hematology/Oncology at [address] [phone] Shelley Cason, [facility] OFFICE OF CARE MANAGEMENT Social History Tobacco [...] were approved for a toi from the [employer] [employer]. They are appreciative of this financial assistance. Cheo indicated he tolerated his last treatment much better than the first 2 so he hope his one will go well. Oferred them support as Mrs. Freire shared how challenging this is for them. Reminded them of FIELD ASSISTANT availability and will continue to follow for support and resources. Brief assessment Supportive Counseling Financial resources Community Resource documented in this encounter Plan of Treatment Upcoming Encounters Date Type Department Care Team (Late st Contact Info) Description 10/17/2023 1:00 PM EDT TH Visit (TeleHealth) Hematology/Oncology at [address] [phone] Adrianne Ramon MD [facility] [place] [address] Yael Merlos APRN [facility] [place] [address] 10/17/2023 1:30 PM EDT Infusion Hematology Oncology at [address] [phone] 10/26/2023 9:00 AM EDT Office Visit [place]ematology [place] [address] Reynold Proctor MD [facility] [place] [address] 11/14/2023 9:30 AM EDT Office Visit Hematology/Oncology at [address] [phone] Adrianne Ramon MD [facility] DR [place] [address] Yael Merlos, KARLA [facility] DR [place] [address] 11/14/2023 10:00 AM EDT Infusion Hematology Oncology at [address] [phone] documented as of this encounter Visit Diagnoses Not on filedocumented in this encounter Care Teams Platform Software Engineer Relationship Specialty Start Date End Date Frederick Meade MD [address] [place] [address] PCP - General Family Medicine 11/29/17 documented as of this encounter
--- OUTSIDE RECORDS SUMMARY | 2023-10-17 03:27 | XMS_ITS | Encounter Summary ---
Author Organization [facility] Address [facility] [place] [address] Care Team Providers Care Furniture Inspector Name Role Phone Frederick Meade MD Primary Care Provider [phone] [phone] Encounter Details Date Type Department Care Team (Late st Contact Info) Description 11/08/2022 Notes Only Hematology/Oncology at [address] [phone] Shelley Cason, [facility] OFFICE OF CARE MANAGEMENT Social History Tobacco [...] needs today. Offered support. Reminded Cheo of FAIRING WORKER availability and will continue to follow as indicated. Brief assessment Supportive Counseling documented in this encounter Plan of Treatment Upcoming Encounters Date Type Department Care Team (Late st Contact Info) Description 10/17/2023 1:00 PM EDT TH Visit (TeleHealth) Hematology/Oncology at [address] [phone] Adrianne Ramon MD [facility] DR HEMATOLOGY [place] [address] Yael Merlos APRN [facility] HEMATOLOGY [place] [address] 10/17/2023 1:30 PM EDT Infusion Hematology Oncology at [address] [phone] 10/26/2023 9:00 AM EDT Office Visit Hematology [place] [address] Reynold Proctor MD [facility] [place] [address] 11/14/2023 9:30 AM EDT Office Visit Hematology/Oncology at [address] [phone] Adrianne Ramon MD [facility] DR HEMATOLOGY [place] [address] Yael Merlos, COMMUNITY DEVELOPMENT OFFICER [facility] DR HEMATOLOGY [place] [address] 11/14/2023 10:00 AM EDT Infusion Hematology Oncology at [address] [phone] documented as of this encounter Visit Diagnoses Not on filedocumented in this encounter Care Teams Furniture Inspector Relationship Specialty Start Date End Date Frederick Meade MD [address] [place] [address] PCP - General Family Medicine 11/29/17 documented as of this encounter
--- OUTSIDE RECORDS SUMMARY | 2023-10-17 03:27 | XMS_ITS | Encounter Summary ---
Author Organization [facility] [place] [address] Care Team Providers Care Chip Frier Name Role Phone Frederick Meade MD Primary Care Provider +1 -[phone] Reason for Visit * Reason Onset Date Comments Questions 11/14/2022 Encounter Details Date Type Department Care Team (Late st Contact Info) Description 11/14/2022 Telephone Hematology/Oncology at [address] [phone] Colt Ardon, RN Questions Social [...] [facility] They are soft formed, not loose He has been taking Metamucil regularly, his wants to make sure that is normal Best call back number [phone] documented in this encounter Plan of Treatment Upcoming Encounters Date Type Department Care Team (Late st Contact Info) Description 10/17/2023 1:00 PM EDT TH Visit (TeleHealth) Hematology/Oncology at [address] [phone] Adrianne Ramon MD [facility] HEMATOLOGY [place] [address] Yael Merlos APRN [facility] HEMATOLOGY [place] [address] 10/17/2023 1:30 PM EDT Infusion Hematology Oncology at [address] [phone] 10/26/2023 9:00 AM EDT Office Visit [place]ematology [place] [address] Reynold Proctor MD [facility] [place] [address] 11/14/2023 9:30 AM EDT Office Visit Hematology/Oncology at [address] [phone] Adrianne Ramon MD [facility] HEMATOLOGY [place] [address] Yael Merlos SECONDARY ENGLISH TEACHER [facility] HEMATOLOGY [place] [address] 11/14/2023 10:00 AM EDT Infusion Hematology Oncology at [address] [phone] documented as of this encounter Visit Diagnoses Not on filedocumented in this encounter Care Teams Chip Frier Relationship Specialty Start Date End Date Frederick Meade MD [address] [place] [address] [address] [place] [address] PCP - General Family Medicine 11/29/17 documented as of this encounter
--- OUTSIDE RECORDS SUMMARY | 2023-10-17 03:27 | XMS_ITS | Encounter Summary ---
Author Organization [facility] [place] [address] Care Team Providers Care Technical Artist Name Role Phone Frederick Meade MD Primary Care Provider [phone] [phone] Encounter Details Date Type Department Care Team [...] EDT TH Visit (TeleHealth) Hematology/Oncology at [address] [phone] Adrianne Ramon MD [facility] HEMATOLOGY [place] [address] Yael Merlos APRN [facility] HEMATOLOGY [place] [address] 10/17/2023 1:30 PM EDT Infusion Hematology Oncology at [address] [phone] 10/26/2023 9:00 AM EDT Office Visit Hematology [place] [address] Reynold Proctor MD [facility] [place] [address] 11/14/2023 9:30 AM EDT Office Visit Hematology/Oncology at [address] [phone] Adrianne Ramon MD [facility] HEMATOLOGY [place] [address] Yael Merlos APRN [facility] HEMATOLOGY [place] [address] 11/14/2023 10:00 AM EDT Infusion Hematology Oncology at [address] [phone] documented as of this encounter Visit Diagnoses Not on filedocumented in this encounter Care Teams Technical Artist Relationship Specialty Start Date End Date Frederick Meade MD [address] [place], [place] [id number] PCP - General Family Medicine 11/29/17 documented as of this encounter
--- OUTSIDE RECORDS SUMMARY | 2023-10-17 03:27 | XMS_ITS | Encounter Summary ---
[place] [address] Care Team Providers Care Warp Changer Name Role Phone Frederick Meade MD Primary Care Provider [phone] [phone] Reason for Referral * Diagnostic Test (Routine) - Closed Specialty Diagnoses / Procedures Referred By Contac t Referred To Contact Radiology Diagnoses Diffuse large B-cell lymphoma of lymph nodes of multiple regions Procedures NM PET CT Skull Base to Mid-thigh Yael Merlos APRN [facility] [place] [address] [place] [address] Referral ID Status Reason Start Date Expiration Date V isits Requested Visits Authorized [id number] Closed Specialty Service Requested 01/15/2023 07/15/2024 1 1 Encounter Details Date Type Department Care Team (Late st Contact Info) Description 01/15/2023 Orders Only Hematology [place] [address] Yael Merlos APRN [facility] [place] [address] Diffuse large B-cell lymphoma of [...] EDT TH Visit (TeleHealth) Hematology/Oncology at [address] [phone] Adrianne Ramon MD [facility] HEMATOLOGY [place] [address] Yael Merlos, [facility] [address] [place] [address] 10/17/2023 1:30 PM EDT Infusion Hematology Oncology at [address] [phone] 10/26/2023 9:00 AM EDT Office Visit Hematology [place] [address] Reynold Proctor MD [facility] [place] [address] 11/14/2023 9:30 AM EDT Office Visit Hematology/Oncology at [address] [phone] Adrianne Ramon MD [facility] [place] [address] Yael Merlos [facility] [place] [address] 11/14/2023 10:00 AM EDT Infusion Hematology Oncology at [address] [phone] documented as of this encounter Results * [...] who have questions please contact the health wild animal caretaker that requested your imaging first. ? Electronically signed by: Tracey Flood MD, [facility] ??([phone]), at 03/08/2023 11:33 AM Narrative 03/08/2023 11:33 AM EST EXAMINATION: NM PET CT STANDARD SKULL BASE TO MID-THIGH CLINICAL HISTORY: Hematologic malignancy, assess treatment response History of diffuse large B-cell lymphoma, status post 6 cycles of RCHOP. TECHNIQUE: Following IV injection of 04-azajpu-2-deoxyglucose (FDG) a standard uptake of approximately 60 [...] of RCHOP. TECHNIQUE: Following IV injection of 97-fvrkmw-3-deoxyglucose (FDG) astandard uptake of approximately 60 minutes, [...] patients who have questions please contactthe health wild animal caretaker that requested your imaging first. 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
--- OUTSIDE RECORDS SUMMARY | 2023-10-17 03:27 | XMS_ITS | Encounter Summary ---
Author Organization [facility] [place] [address] Care Team Providers Care Mine Safety Manager Name Role Phone Frederick Meade MD Primary Care Provider [phone] Encounter Details Date Type Department Care Team [...] EDT TH Visit (TeleHealth) Hematology/Oncology at [address] [phone] Adrianne Ramon MD [facility] HEMATOLOGY [place] [address] Yael Merlos APRN [facility] HEMATOLOGY [place] [address] 10/17/2023 1:30 PM EDT Infusion Hematology Oncology at [address] [phone] 10/26/2023 9:00 AM EDT Office Visit [place]ology [place] [address] Reynold Proctor MD [facility] [place] [address] 11/14/2023 9:30 AM EDT Office Visit Hematology/Oncology at [address] [phone] Adrianne Ramon MD [facility] HEMATOLOGY [place] [address] Yael Merlos APRN [facility] HEMATOLOGY [place] [address] 11/14/2023 10:00 AM EDT Infusion Hematology Oncology at [address] [phone] documented as of this encounter Visit Diagnoses Not on filedocumented in this encounter Care Teams Mine Safety Manager Relationship Specialty Start Date End Date Frederick Meade MD [address] [place], [place] [id number] PCP - General Family Medicine 11/29/17 documented as of this encounter
--- OUTSIDE RECORDS SUMMARY | 2023-10-17 03:27 | XMS_ITS | Encounter Summary ---
Author Organization [facility] [place] [address] Care Team Providers Care Implementation Engineer Name Role Phone Frederick Meade MD Primary Care Provider [phone] [phone] Reason for Visit * Reason Comments Chemotherapy [...] [facility] DR HEMATOLOGY [place] [address] [facility] Infusion [address] [place] [phone] Referral ID Status Reason Start Date Expiration Date Visits Re quested Visits Authorized [id number] Closed 10/11/2022 10/11/2023 1 100 Encounter Details Date Type Department Care Team (Late st Contact Info) Description 01/31/2023 9:00 AM EST Infusion Hematology Oncology at [address] [phone] Diffuse large B-cell lymphoma [...] treatment. OBJECTIVE LAB DATA: completed today at [facility] Pre administration: Chemotherapy orders independently [...] EDT TH Visit (TeleHealth) Hematology/Oncology at [address] [phone] Adrianne Ramon MD [facility] [place]ATOLOG[place] [address] Yael Merlos APRN [facility] [place] [address] 10/17/2023 1:30 PM EDT Infusion Hematology Oncology at [address] [phone] 10/26/2023 9:00 AM EDT Office Visit Hematology [place] [address] Reynold Proctor MD [facility] [place] [address] 11/14/2023 9:30 AM EDT Office Visit Hematology/Oncology at [address] [phone] Adrianne Ramon MD [facility] [place] [address] Yael Merlos APRN [facility] DR [place] [address] 11/14/2023 10:00 AM EDT Infusion Hematology Oncology at [address] [phone] documented as of this encounter Visit Diagnoses [...] 2 minutes is a recommendation from the children's service worker. Administer prior to chemotherapy., Routine Given 01/31/2023 [...] (IV) Procedure: Accessing Implanted Vascular Access Devices (874) procedure and/or Intravenous (IV) Job Aid: Adult Flushing & Catheter Care (7112) job aid for additional information regarding guidelines [...] Job Aid: Adult Flushing & Catheter Care (6693) job aid for additional information regarding guidelines [...] mL/hr documented in this encounter Care Teams Implementation Engineer Relationship Specialty Start Date End Date Frederick Meade MD [address] [place] [address] PCP - General Family Medicine 11/29/17 documented as of this encounter
--- OUTSIDE RECORDS SUMMARY | 2023-10-17 03:27 | XMS_ITS | Encounter Summary ---
Author Organization [facility] [place] [address] Care Team Providers Care Superintendent Electric Power Name Role Phone Frederick Meade MD Primary Care Provider [phone] Encounter Details Date Type Department Care Team (Late st Contact Info) Description 11/16/2022 Orders Only Hematology [place] [phone] Adrianne Ramon MD [facility] DR HEMATOLOGY [place] [address] High risk medication use; Diffuse large B-cell [...] EDT TH Visit (TeleHealth) Hematology/Oncology at [address] [phone] Adrianne Ramon MD [facility] DR HEMATOLOGY [place] [address] Yael Merlos, DATA BASE ADMINISTRATOR [facility] HEMATOLOGY [place] [address] 10/17/2023 1:30 PM EDT Infusion Hematology Oncology at [address] [phone] 10/26/2023 9:00 AM EDT Office Visit Hematology [place] [address] Reynold Proctor MD [facility] [place] [address] 11/14/2023 9:30 AM EDT Office Visit Hematology/Oncology at [address] [phone] Adrianne Ramon MD [facility] DR HEMATOLOGY [place] [address] Yael Merlos APRN [facility] HEMATOLOGY [place] [address] 11/14/2023 10:00 AM EDT Infusion Hematology Oncology at [address] [phone] documented as of this encounter Visit Diagnoses Diagnosis High risk medication use Encounter for long-term (current) use of other medications Diffuse large B-cell lymphoma of lymph nodes of multiple regions documented in this encounter Care Teams Superintendent Electric Power Relationship Specialty Start Date End Date Frederick Meade MD [address] [place] [address] PCP - General Family Medicine 11/29/17 documented as of this encounter
--- OUTSIDE RECORDS SUMMARY | 2023-10-17 03:27 | XMS_ITS | Encounter Summary ---
[place] [address] Care Team Providers Care Baseball Sewer Hand Name Role Phone Frederick Meade MD Primary Care Provider +1 [phone] Reason for Referral * Diagnostic Test (Routine) - Closed Specialty Diagnoses / Procedures Referred By Contac t Referred To Contact Radiology Diagnoses Diffuse large B-cell lymphoma of lymph nodes of multiple regions Procedures NM PET CT Standard Plus Extremities and Head Yael Merlos APRN [facility] [address] [place] [address] [place] [address] Referral ID Status Reason Start Date Expiration Date V isits Requested Visits Authorized [id number] Closed Specialty Service Requested 12/20/2022 06/19/2024 1 1 Reason for Visit * Diagnostic Test (Routine) - Closed Specialty Diagnoses / Procedures Referred By Contac t Referred To Contact Radiology Diagnoses Diffuse large B-cell lymphoma of lymph nodes of multiple regions Procedures NM PET CT Standard Plus Extremities and Head Yael Merlos APRN [facility] [place] [address] [place] [address] Referral ID Status Reason Start Date Expiration Date V isits Requested Visits Authorized [id number] Closed Specialty Service Requested 12/20/2022 06/19/2024 1 1 Encounter Details Date Type Department Care Team (Latest Contact Info) Description 01/05/2023 7:19 AM EST - 01/05/2023 11:59 PM EST Hospital Encounter Nuclear Medicine at [facility] [place] [phone] Yael Merlos APRN [facility] [address] [place] [address] 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 WakieTOUCH ULTRA BLUE TEST STRIP Strip USE TO [...] EDT TH Visit (TeleHealth) Hematology/Oncology at [address] [phone] Adrianne Ramon MD [facility] [place] [address] Yael Merlos APRN [facility] [place] [address] 10/17/2023 1:30 PM EDT Infusion Hematology Oncology at [address] [phone] 10/26/2023 9:00 AM EDT Office Visit Hematology [place] [address] Reynold Proctor MD [facility] [place] [address] 11/14/2023 9:30 AM EDT Office Visit Hematology/Oncology at [address] [phone] Adrianne Ramon MD [facility] [place] [address] Yael Merlos BUSINESS PROCESS MODELER [facility] [place] [address] 11/14/2023 10:00 AM EDT Infusion Hematology Oncology at [address] [phone] documented as of this encounter Procedures Procedure [...] who have questions please contact the health neonatal critical care nurse that requested your imaging first. ? Electronically signed by: Fletcher Duckworth MD, [facility] ([phone]), at 01/05/2023 9:50 AM Narrative 01/05/2023 9:50 AM EST EXAMINATION: NM PET CT STANDARD PLUS EXTREMITIES AND HEAD CLINICAL HISTORY: Hematologic malignancy, assess treatment response Non-Hodgkin lymphoma TECHNIQUE: Procedure: Following IV injection of 73-iisxsr-3-deoxyglucose (FDG) a standard uptake of approximately 60 [...] lymphoma TECHNIQUE: Procedure: Following IV injection of 48-esklsk-9-deoxyglucose(FDG) a standard uptake of approximately 60 minutes, [...] of the left upper lobe (image 131 [id number]). These foci are new since the prior [...] patients who have questions please contactthe health neonatal critical care nurse that requested your imaging first. Electronically signed by: Fletcher Duckworth MD, [facility]([phone]), at 01/05/2023 9:50 AM Yael Merlos BUSINESS PROCESS MODELER IMG PET ORDERABLES documented in this encounter [...] Arm documented in this encounter Care Teams Baseball Sewer Hand Relationship Specialty Start Date End Date Frederick Meade MD [address] [place] [address] PCP - General Family Medicine 11/29/17 documented as of this encounter
--- OUTSIDE RECORDS SUMMARY | 2023-10-17 03:27 | XMS_ITS | Encounter Summary ---
[place] [address] Care Team Providers Care Floatlight Powder Mixer Name Role Phone Frederick Meade MD Primary Care Provider [phone] [phone] Reason for Visit * Diagnostic Test (Routine) - Closed Specialty Diagnoses / Procedures Referred By Contac t Referred To Contact Radiology Diagnoses Diffuse large B-cell lymphoma of lymph nodes of multiple regions Procedures NM PET CT Skull Base to Mid-thigh Yael Merlos COOKIE MIXER HELPER [facility] [place] [address] [place] [address] Referral ID Status Reason Start Date Expiration Date V isits Requested Visits Authorized [id number] Closed Specialty Service Requested 01/15/2023 07/15/2024 1 1 Encounter Details Date Type Department Care Team (Latest Contact Info) Description 03/06/2023 7:52 AM EST - 03/06/2023 11:59 PM [facility] Hospital Encounter [place] [address] Yael Merlos [facility] [place] [address] Discharge Disposition: Home Social History [...] EDT TH Visit (TeleHealth) Hematology/Oncology at [address] [phone] Adrianne Ramon MD [facility] DR [place] [address] Yael Merlos, COOKIE MIXER HELPER [facility] DR [place] [address] 10/17/2023 1:30 PM EDT Infusion Hematology Oncology at [address] [phone] 10/26/2023 9:00 AM EDT Office Visit Hematology [place] [address] Reynold Proctor MD [facility] [address] 11/14/2023 9:30 AM EDT Office Visit Hematology/Oncology at [address] [phone] Adrianne Ramon MD [facility] DR [place] [address] Yael Merlos APRN [facility] [place] [address] 11/14/2023 10:00 AM EDT Infusion Hematology Oncology at [address] [phone] documented as of this [...] Glucose, POC 126 65 - 199 mg/dL [facility] Comment: Supplemental ranges: <140 mg/dL before meals <180 mg/dL all other times of the day Blood 03/06/2023 8:05 AM EST 03/06/2023 8:05 AM EST Yael Merlos COOKIE MIXER HELPER POINT OF CARE TEST ORDERABLES [facility] [place] [address] documented in this encounter Visit Diagnoses Not on filedocumented in this encounter Care Teams Floatlight Powder Mixer Relationship Specialty Start Date End Date Frederick Meade MD [address] [place], [place] [address] PCP - General Family Medicine 11/29/17 documented as of this encounter
--- OUTSIDE RECORDS SUMMARY | 2023-10-17 03:27 | XMS_ITS | Encounter Summary ---
Author Organization [facility] [place] [address] Care Team Providers Care Sample Distributor Name Role Phone Frederick Meade MD Primary Care Provider +1 [phone] Reason for Visit * Reason Comments Chemotherapy [...] [facility] [place] [address] [facility] Infusion [address] [place] [address] Referral ID Status Reason Start Date Expiration Date Visits Re quested Visits Authorized [id number] Closed 10/11/2022 10/11/2023 1 100 Encounter Details Date Type Department Care Team (Late st Contact Info) Description 12/20/2022 8:30 AM EDT Infusion Hematology Oncology at [address] [phone] Diffuse large B-cell lymphoma of [...] OBJECTIVE LAB DATA: completed 12/20 at [facility] Pre administration: Chemotherapy orders independently verified [...] EDT TH Visit (TeleHealth) Hematology/Oncology at [address] [phone] Adrianne Ramon MD [facility] [place] [address] Yael Merlos APRN [facility] [place] [address] 10/17/2023 1:30 PM EDT Infusion Hematology Oncology at [address] [address] 10/26/2023 9:00 AM EDT Office Visit [place]ematology [place] [address] Reynold Proctor MD [facility] [place] [address] 11/14/2023 9:30 AM EDT Office Visit Hematology/Oncology at [address] [phone] Adrianne Ramon MD [facility] HEMATOLOGY AND [place] [address] Yael Merlos APRN [facility] DR HEMATOLOGY [place] [address] 11/14/2023 10:00 AM EDT Infusion Hematology Oncology at [address] [phone] documented as of this encounter [...] 2 minutes is a recommendation from the truck caterer. Administer prior to chemotherapy., Routine Given 12/20/2022 [...] Job Aid: Adult Flushing & Catheter Care (0106) job aid for additional information regarding guidelines [...] mL/hr documented in this encounter Care Teams Sample Distributor Relationship Specialty Start Date End Date Fredercik Meade MD [address] [place] [address] PCP - General Family Medicine 11/29/17 documented as of this encounter
--- OUTSIDE RECORDS SUMMARY | 2023-10-17 03:27 | XMS_ITS | Encounter Summary ---
Author Organization [facility] [place] [address] Care Team Providers Care Athletic Instructor Name Role Phone Frederick Meade MD Primary Care Provider +1 [phone] Reason for Visit * Reason Comments Follow-up Encounter Details Date Type Department Care Team (Late st Contact Info) Description 11/22/2022 11:30 AM EDT Office Visit Hematology/Oncology at [address] [phone] Adrianne Ramon MD [facility] [address] [place] [address] Yael Merlos, SENIOR ANALYST [facility] [address] [place] [address] 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 No beds so sent to [facility] for [address] CAP, MRI,and [...] days with nice response. Pathology from [facility] reports large B-cell lymphoma. Double expresser. FISH for translocations are pending. Tongue swelling. No wt loss. Eating and drinking OK. No fevers, infections, No NS. Pain in neck.Prednisone 60mg daily X 7 days. I feel great on prednisone last day of prednisone is today Took iron supplements per PCP - unclear cause. - last COLO at [facility] was 01/17/2012. INTERIM HISTORY OF PRESENT ILLNESS: [...] has been trying to work through the respiratory care assistant trying to obtain a supply to [...] and needle of cervical LN. FISH from [place] No MYCrearrangement and no fusion of [...] only 1 biologic. Son Cheo Freire. Enjoys [employer], [employer], [employer] car, [employer]. [employer]. 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 Not a . ETOH: 1-3 beers per week Smoking: Quit 1985. Approximately 85-tioe-fbzd history Vaping or electronic cigarettes: denies Chewing [...] a delightful 72-year old male in [facility]. He is accompanied to the clinic [...] and BCL-2 protein (Double Expressor.) Flow cytometry ([id number]) supports this interpretation. FISH from [place] No MYC rearrangement and no fusion of MYC and IGH was observed, CD3 (SP7, Thermo Scientific) Background T-cells CD20 (L26, Carlos) diffusely positive in Neoplastic B-cells PAX-5 (1EW, Leica) diffusely positive in Neoplastic B-cells CD10 (SP67, Carlos) Negative BCL-6 (G/191E/A8, Carlos) Positive MUM-1 (MUM1p, Dako) Positive Myc (Y69, Abcam) Positive BCL-2 Oncoprotein (124, Carlos) Positive Ki67 (MIB-1) (K2, Leica) Greater than 95% of cells in cycle Cyclin D1(SP4-R, Carlos) Negative SAPPHIRE JOSE ([id number], Leica) Negative. DIAGNOSTICS: 11/06/22 ECHO after C#1 [...] investigation with ultrasound. CT CAP at [facility], report and images have been requested. ASSESSMENT/PLAN: Cheo Freire is a very pleasant 72 y.o. male referred by Dr Lg Ramírez of ENT for newly diagnosed large B cell lymphoma.. It was a pleasure to meet Cheo, his Clartiza, and his son Cheo. Cheo returns today [...] 2 tabs per day. 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 No COLO in last 10 years. [...] and counseling as appropriate. Yael Merlos, MSN, SENIOR ANALYST Nurse practitioner Section of Hematology/Oncology Copy Frederick Meade MD documented in this encounter Plan of Treatment Upcoming Encounters Date Type Department Care Team (Late st Contact Info) Description 10/17/2023 1:00 PM EDT TH Visit (TeleHealth) Hematology/Oncology at [address] [phone] Adrianne Ramon MD [facility] [place] [address] Yael Merlos APRN [facility] [place] [address] 10/17/2023 1:30 PM EDT Infusion Hematology Oncology at [address] [phone] 10/26/2023 9:00 AM EDT Office Visit Hematology [place] [address] Reynold Proctor MD [facility] [place] [address] 11/14/2023 9:30 AM EDT Office Visit Hematology/Oncology at [address] [phone] Adrianne Ramon MD [facility] HEMATOLOGY [place] [address] Yael Merlos APRN [facility] [place] [address] 11/14/2023 10:00 AM EDT Infusion Hematology Oncology at [address] [phone] documented as of this encounter [...] lung documented in this encounter Care Teams Athletic Instructor Relationship Specialty Start Date End Date Frederick Meade MD [address] [place] [address] [address] [place] [address] PCP - General Family Medicine 11/29/17 documented as of this encounter
--- OUTSIDE RECORDS SUMMARY | 2023-10-17 03:27 | XMS_ITS | Encounter Summary ---
Author Organization [facility] [place] [address] Care Team Providers Care Buck Presser Name Role Phone Frederick Meade MD Primary Care Provider [phone] [phone] Reason for Visit * Reason Comments Chemotherapy [...] [facility] [address] [place] [address] [facility] Infusion [address] [place] [address] Referral ID Status Reason Start Date Expiration Date Visits Re quested Visits Authorized [id number] Closed 10/11/2022 10/11/2023 1 100 Encounter Details Date Type Department Care Team (Late st Contact Info) Description 11/29/2022 9:30 AM EDT Infusion Hematology Oncology at [address] [phone] Diffuse large B-cell lymphoma of [...] treatment. OBJECTIVE LAB DATA: completed 11/29 at [facility] Pre administration: Chemotherapy orders [...] EDT TH Visit (TeleHealth) Hematology/Oncology at [address] [phone] Adrianne Ramon MD [facility] [place] [address] Yael Merlos APRN [facility] [place] [address] 10/17/2023 1:30 PM EDT Infusion Hematology Oncology at [address] [phone] 10/26/2023 9:00 AM EDT Office Visit Hematology [place] [address] Reynold Proctor MD [facility] [place] [address] 11/14/2023 9:30 AM EDT Office Visit Hematology/Oncology at [address] [phone] Adrianne Ramon MD [facility] HEMATOLOGY [place] [address] Yael Merlos APRN [facility] [address] [place] [address] 11/14/2023 10:00 AM EDT Infusion Hematology Oncology at [address] [phone] documented as of this encounter [...] 2 minutes is a recommendation from the fur repair inspector. Administer prior to chemotherapy., Routine Given 11/29/2022 [...] Job Aid: Adult Flushing & Catheter Care (4727) job aid for additional information regarding guidelines [...] Job Aid: Adult Flushing & Catheter Care (3124) job aid for additional information regarding guidelines [...] mL/hr documented in this encounter Care Teams Buck Presser Relationship Specialty Start Date End Date Frederick Meade MD [address] [facility] [place] [address] PCP - General Family Medicine 11/29/17 documented as of this encounter
--- OUTSIDE RECORDS SUMMARY | 2023-10-17 03:27 | XMS_ITS | Encounter Summary ---
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 [place] [address] HEMATOLOGY PATIENT EVALUATION PROBLEM LIST: Patient Active [...] [facility] when to [facility]. No beds so sent to [...] - unclear cause. - last COLO at [facility] was 01/17/2012. INTERIM HISTORY OF [...] negative SOCIAL HISTORY: reviewed, no changes Personal: Clartiza 37 years (third marriage, divorce and ) 4 children only 1 biologic. Son Cheo Freire. Enjoys reads, movies, race car, cards. [employer]. 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 Not a . ETOH: 1-3 beers per week Smoking: Quit 1985. Approximately 18-pmwb-jtkz history Vaping or electronic cigarettes: denies Chewing [...] is a delightful 72-year old male in [facility]. He is accompanied to the [...] and BCL-2 protein (Double Expressor.) Flow cytometry ([id number]) supports this interpretation. FISH from [place] No MYC rearrangement and no fusion of MYC and IGH was observed, CD3 (SP7, Thermo Scientific) Background T-cells CD20 (L26, Bamberg) diffusely positive in Neoplastic B-cells PAX-5 (1EW, Leica) diffusely positive in Neoplastic B-cells CD10 (SP67, Bamberg) Negative BCL-6 (G/191E/A8, Bamberg) Positive MUM-1 (MUM1p, Dako) Positive Myc (Y69, Abcam) Positive BCL-2 Oncoprotein (124, Bamberg) Positive Ki67 (MIB-1) (K2, Leica) Greater than 95% of cells in cycle Cyclin D1(SP4-R, Bamberg) Negative SAPPHIRE JOSE ([id number], Leica) Negative. DIAGNOSTICS: 01/25/23 ECHO after C#5 [...] undergo investigation with ultrasound. CT CAP at [facility], report and images have been [...] LVEF at 50-55%. --asymptomatic --repeat echo at [facility] 1 year post completion of [...] and counseling as appropriate. Yael Merlos, MSN, POWER PLANT OPERATOR Nurse Practitioner Section of Hematology Copy Frederick Meade MD documented in this encounter Plan of Treatment Upcoming Encounters Date Type Department Care Team (Late st Contact Info) Description 10/17/2023 1:00 PM EDT TH Visit (TeleHealth) Hematology/Oncology at [address] [phone] Adrianne Ramon MD [facility] DR HEMATOLOGY [place] [address] Yael Merlos APRN [facility] [place]ATOLOGY [place] [address] 10/17/2023 1:30 PM EDT Infusion Hematology Oncology at [address] [phone] 10/26/2023 9:00 AM EDT Office Visit Hematology [place] [address] Reynold Proctor MD [facility] [place] [address] 11/14/2023 9:30 AM EDT Office Visit Hematology/Oncology at [address] [phone] Adrianne Ramon MD [facility] HEMATOLOGY [place] [address] Yael Merlos APRN [facility] [place]EMATOLOGY [place] [address] 11/14/2023 10:00 AM EDT Infusion Hematology Oncology at [address] [phone] documented as of this encounter Procedures Procedure Name Priority Date/Time Associated Diagnosis Comments CBC (WITH DIFF) Routine 01/31/2023 COMPREHENSIVE METABOLIC PANEL Routine 01/31/2023 documented in this encounter Results * (ABNORMAL) Comprehensive metabolic panel (non-fasting) (01/31/2023) Pathologist [facility] Glucose 238(H) Blood Urea Nitrogen 13 Creatinine 1.1 Sodium 140 Potassium 3.4(L) Calcium 9.0 Protein, Total 6.3(L) Albumin 2.9(L) Bilirubin, Total 0.2 Alkaline Phosphatase 99 Aspartate Aminotransferase 21 Alanine Aminotransferase 24 Ferritin 233 Lactate Dehydrogenase 222 Blood 01/31/2023 Historical Provider CHEMISTRY ORDERAB LES * (ABNORMAL) CBC (with Diff) (01/31/2023) Pathologist [facility] White Blood Cell 6.74 Red Blood Cell 3.26(L) Hemoglobin 9.7(L) Hematocrit 31.0(L) Platelet 318 ANC 4.72 Blood 01/31/2023 Historical Provider HEMATOLOGY ORDERA BLES documented in this encounter Visit Diagnoses Diagnosis 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
--- OUTSIDE RECORDS SUMMARY | 2023-10-17 03:27 | XMS_ITS | Encounter Summary ---
Author Organization [facility] [place] [address] Care Team Providers Care Vitamin Manager Name Role Phone Frederick Meade MD Primary Care Provider [phone] Encounter Details Date Type Department Care Team (Late st Contact Info) Description 11/16/2022 Telephone Hematology/Oncology at [address] [phone] Brenda Priest, RN Social History [...] Call: Received call from OSCAR Marcelo at [facility] notifying us that patient was admitted [facility] yesterday and is positive for C-Diff. Dr. Ramon and Yael Merlos APRN updated via this note. documented in this encounter Plan of Treatment Upcoming Encounters Date Type Department Care Team (Late st Contact Info) Description 10/17/2023 1:00 PM EDT TH Visit (TeleHealth) Hematology/Oncology at [address] [address] Adrianne Ramon MD [facility] HEMATOLOGY [place] [address] Yael Merlos APRN [facility] HEMATOLOGY [place] [address] 10/17/2023 1:30 PM EDT Infusion Hematology Oncology at [address] [phone] 10/26/2023 9:00 AM EDT Office Visit Hematology [place] [address] Reynold Proctor MD [facility] [place] [address] 11/14/2023 9:30 AM EDT Office Visit Hematology/Oncology at [address] [phone] Adrianne Ramon MD [facility] [place] [address] Yael Merlos, KARLA [facility] [place] [address] 11/14/2023 10:00 AM EDT Infusion Hematology Oncology at [address] [phone] documented as of this encounter Visit Diagnoses Not on filedocumented in this encounter Care Teams Vitamin Manager Relationship Specialty Start Date End Date Frederick Meade MD [address] [place] [address] [address] [facility] 1 [place] [address] PCP - General Family Medicine 11/29/17 documented as of this encounter
--- OUTSIDE RECORDS SUMMARY | 2023-10-17 03:27 | XMS_ITS | Encounter Summary ---
Author Organization [facility] Address [facility] [place] [address] Care Team Providers Care Fuel Efficient Automobile Designer Name Role Phone Frederick Meade MD Primary Care Provider +1 -[phone] Encounter Details Date Type Department Care Team (Late st Contact Info) Description 01/31/2023 Notes Only Hematology/Oncology at [address] [phone] Shelley Cason, [facility] [place] [...] did not identify any new needs today. DIRECTOR SMB SALES will continue as a resource for them. Brief assessment Supportive Counseling documented in this encounter Plan of Treatment Upcoming Encounters Date Type Department Care Team (Late st Contact Info) Description 10/17/2023 1:00 PM EDT TH Visit (TeleHealth) Hematology/Oncology at [address] [phone] Adrianne Ramon MD [facility] DR HEMATOLOGY [place] [address] Yael Merlos, GAS REVERSER [facility] HEMATOLOGY [place] [address] 10/17/2023 1:30 PM EDT Infusion Hematology Oncology at [address] [phone] 10/26/2023 9:00 AM EDT Office Visit Hematology [place] [address] Reynold Proctor MD [facility] [place] [address] 11/14/2023 9:30 AM EDT Office Visit Hematology/Oncology at [address] [phone] Adrianne Ramon MD [facility] DR HEMATOLOGY [place] [address] Yael Merlos, GAS REVERSER [facility] DR HEMATOLOGY [place] [address] 11/14/2023 10:00 AM EDT Infusion Hematology Oncology at [address] [phone] documented as of this encounter Visit Diagnoses Not on filedocumented in this encounter Care Teams Fuel Efficient Automobile Designer Relationship Specialty Start Date End Date Frederick Meade MD [address] [place] [address] [address] PCP - General Family Medicine 11/29/17 documented as of this encounter
--- OUTSIDE RECORDS SUMMARY | 2023-10-17 03:27 | XMS_ITS | Encounter Summary ---
Author Organization [facility] [place] [address] Care Team Providers Care Military Science Teacher Name Role Phone Frederick Meade MD Primary Care Provider +1 [phone] Encounter Details Date Type Department Care Team [...] EDT TH Visit (TeleHealth) Hematology/Oncology at [address] [phone] Adrianne Ramon MD [facility] H[place]ATOLOG[place] [address] Yael Merlos APRN [facility] [place] [address] 10/17/2023 1:30 PM EDT Infusion Hematology Oncology at [address] [phone] 10/26/2023 9:00 AM EDT Office Visit Hematology [place] [address] Reynold Proctor MD [facility] [place] [address] 11/14/2023 9:30 AM EDT Office Visit Hematology/Oncology at [address] [phone] Adrianne Ramon MD [facility] [place] [address] Yael Merlos APRN [facility] [place] [address] 11/14/2023 10:00 AM EDT Infusion Hematology Oncology at [address] [phone] documented as of this encounter Visit Diagnoses Not on filedocumented in this encounter Care Teams Military Science Teacher Relationship Specialty Start Date End Date Frederick Meade MD [address] [place], [place] [phone] PCP - General Family Medicine 11/29/17 documented as of this encounter
--- OUTSIDE RECORDS SUMMARY | 2023-10-17 03:27 | XMS_ITS | Encounter Summary ---
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 No beds so sent to [facility] for [address] CAP, [...] cause. - last COLO at [facility] was 01/17/2012. INTERIM HISTORY OF PRESENT ILLNESS: [...] and needle of cervical LN. FISH from [place] No MYCrearrangement and no fusion of MYC [...] only 1 biologic. Son Cheo Freire. Enjoys [email or web address], [employer], [employer], [employer]. [employer]. 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 Not a . ETOH: 1-3 beers per week Smoking: Quit 1985. Approximately 21-dcdl-ance history Vaping or electronic cigarettes: denies Chewing [...] is a delightful 72-year old male in [facility]. He is accompanied to the [...] and BCL-2 protein (Double Expressor.) Flow cytometry ([id number]) supports this interpretation. FISH from [place] No MYC rearrangement and no fusion of MYC and IGH was observed, CD3 (SP7, Thermo Scientific) Background T-cells CD20 (L26, Vina) diffusely positive in Neoplastic B-cells PAX-5 (1EW, Leica) diffusely positive in Neoplastic B-cells CD10 (SP67, Vina) Negative BCL-6 (G/191E/A8, Vina) Positive MUM-1 (MUM1p, Dako) Positive Myc (Y69, Abcam) Positive BCL-2 Oncoprotein (124, Vina) Positive Ki67 (MIB-1) (K2, Leica) Greater than 95% of cells in cycle Cyclin D1(SP4-R, Vina) Negative SAPPHIRE JOSE ([id number], Leica) Negative. DIAGNOSTICS: 10/10/23 ECHO after C#2 [...] undergo investigation with ultrasound. CT CAP at [facility], report and images have been requested. [...] Taking oral iron bid. 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 No COLO in last 10 years. [...] EDT TH Visit (TeleHealth) Hematology/Oncology at [address] [phone] Adrianne Ramon MD [facility] [place] [address] Yael Merlos APRN [facility] [place] [address] 10/17/2023 1:30 PM EDT Infusion Hematology Oncology at [address] [phone] 10/26/2023 9:00 AM EDT Office Visit Hematology [place] [address] Reynold Proctor MD [facility] [place] [address] 11/14/2023 9:30 AM EDT Office Visit Hematology/Oncology at [address] [phone] Adrianne Ramon MD [facility] [place] [address] Yael Merlso APRN [facility] [place] [address] 11/14/2023 10:00 AM EDT Infusion Hematology Oncology at [address] [phone] Scheduled Orders Name Type Priority Associated Diagnoses [...] type documented in this encounter Care Teams Owner/Operator Relationship Specialty Start Date End Date Frederick Meade MD [address] [place] [address] PCP - General Family Medicine 11/29/17 documented as of this encounter
--- OUTSIDE RECORDS SUMMARY | 2023-10-17 03:27 | XMS_ITS | Encounter Summary ---
Author Organization [facility] [place] [address] Care Team Providers Care Frame Table Operator Name Role Phone Frederick Meade MD Primary Care Provider +1 -[phone] Encounter Details Date Type Department Care Team [...] PM EDT TH Visit (TeleHealth) Hematology/Oncology at [address] [phone] Adrianne Ramon MD [facility] HEMATOLOGY [place] [address] Yael Merlos APRN [facility] HEMATOLOGY [place] [address] 10/17/2023 1:30 PM EDT Infusion Hematology Oncology at [address] [phone] 10/26/2023 9:00 AM EDT Office Visit Hematology [place] [address] Reynold Proctor MD [facility] [place] [address] 11/14/2023 9:30 AM EDT Office Visit Hematology/Oncology at [address] [phone] Adrianne Ramon MD [facility] HEMATOLOGY [place] [address] Yael Merlos APRN [facility] HEMATOLOGY [place] [address] 11/14/2023 10:00 AM EDT Infusion Hematology Oncology at [address] [phone] documented as of this encounter Visit Diagnoses Not on filedocumented in this encounter Care Teams Frame Table Operator Relationship Specialty Start Date End Date Frederick Meade MD [address] [place], [place] [id number] PCP - General Family Medicine 11/29/17 documented as of this encounter
--- OUTSIDE RECORDS SUMMARY | 2023-10-17 03:27 | XMS_ITS | Encounter Summary ---
Author Organization [facility] [place] [address] Care Team Providers Care Boiling House Hand Name Role Phone Frederick Meade MD Primary Care Provider +1 -[phone] Reason for Visit * Reason Comments Chemotherapy [...] TC CYCLOPHOSPHAMIDE, 100MG (CYTOXAN) Adrianne Ramon MD [facility] DR [place] [address] [facility] In[facility] [address] [place] [address] Referral ID Status Reason Start Date Expiration Date Visits Re quested Visits Authorized [id number] Closed 10/11/2022 10/11/2023 1 100 Encounter Details Date Type Department Care Team (Late st Contact Info) Description 11/08/2022 10:00 AM EDT Infusion Hematology Oncology at [address] [phone] Diffuse large B-cell lymphoma of [...] treatment. OBJECTIVE LAB DATA: completed 11/08 at [facility] Pre administration: Chemotherapy orders [...] EDT TH Visit (TeleHealth) Hematology/Oncology at [address] [phone] Adrianne Ramon MD [facility] DR [place] [address] Yael Merlos APRN [facility] [place] [address] 10/17/2023 1:30 PM EDT Infusion Hematology Oncology at [address] [phone] 10/26/2023 9:00 AM EDT Office Visit Hematology [place] [address] Reynold Proctor MD [facility] [place] [address] 11/14/2023 9:30 AM EDT Office Visit Hematology/Oncology at [address] [phone] Adrianne Ramon MD [facility] HEMATOLOGY [place] [address] Yael Merlos COPY CLERK [facility] DR HEMATOLOGY [place] [address] 11/14/2023 10:00 AM EDT Infusion Hematology Oncology at [address] [phone] documented as of this encounter [...] 2 minutes is a recommendation from the book solicitor. Administer prior to chemotherapy., Routine Given 11/08/2022 [...] (IV) Procedure: Accessing Implanted Vascular Access Devices (464) procedure and/or Intravenous (IV) Job Aid: Adult Flushing & Catheter Care (0949) job aid for additional information regarding guidelines [...] Job Aid: Adult Flushing & Catheter Care (0562) job aid for additional information regarding guidelines [...] mL/hr documented in this encounter Care Teams Boiling House Hand Relationship Specialty Start Date End Date Frederick Meade MD [address] [place] [address] PCP - General Family Medicine 11/29/17 documented as of this encounter
--- OUTSIDE RECORDS SUMMARY | 2023-10-17 03:27 | XMS_ITS | Encounter Summary ---
[place] [address] Care Team Providers Care Moisture Conditioner Operator Name Role Phone Frederick Meade MD Primary Care Provider +1 -[phone] Reason for Referral * Diagnostic Test (Routine) - Closed Specialty Diagnoses / Procedures Referred By Contac t Referred To Contact Radiology Diagnoses Diffuse large B-cell lymphoma of lymph nodes of multiple regions Procedures NM PET CT Skull Base to Mid-thigh Yael Merlos SWING GRINDER [facility] DR [place] [address] [place] [address] Referral ID Status Reason Start Date Expiration Date V isits Requested Visits Authorized [id number] Closed Specialty Service Requested 01/15/2023 07/15/2024 1 1 Reason for Visit * Diagnostic Test (Routine) - Closed Specialty Diagnoses / Procedures Referred By Contac t Referred To Contact Radiology Diagnoses Diffuse large B-cell lymphoma of lymph nodes of multiple regions Procedures NM PET CT Skull Base to Mid-thigh Yael Merlos SWING GRINDER [facility] [place] [address] [place] [address] Referral ID Status Reason Start Date Expiration Date V isits Requested Visits Authorized [id number] Closed Specialty Service Requested 01/15/2023 07/15/2024 1 1 Encounter Details Date Type Department Care Team (Latest Contact Info) Description 03/06/2023 7:52 AM EST - 03/06/2023 11:59 PM EST Hospital En[place] [phone] Yael Merlos APRN [facility] DR [place] [address] Diffuse large B-cell lymphoma of lymph nodes [...] PM EDT TH Visit (TeleHealth) Hematology/Oncology at [address] [phone] Adrianne Ramon MD [facility] [place] [address] Yael Merlos APRN [facility] HEMATOLOGY [place] [address] 10/17/2023 1:30 PM EDT Infusion Hematology Oncology at [address] [phone] 10/26/2023 9:00 AM EDT Office Visit Hematology [place] [address] Reynold Proctor MD [facility] [place] [address] 11/14/2023 9:30 AM EDT Office Visit Hematology/Oncology at [address] [phone] Adrianne Ramon MD [facility] [place] [address] Yael Merlos APRN [facility] [place] [address] 11/14/2023 10:00 AM EDT Infusion Hematology Oncology at [address] [phone] documented as of this encounter Procedures Procedure [...] who have questions please contact the health insurance healthcare representative that requested your imaging first. ? Electronically signed by: Tracey Flood MD, [facility] ??([phone]), at 03/08/2023 11:33 AM Narrative 03/08/2023 11:33 AM EST EXAMINATION: NM PET CT STANDARD SKULL BASE TO MID-THIGH CLINICAL HISTORY: Hematologic malignancy, assess treatment response History of diffuse large B-cell lymphoma, status post 6 cycles of RCHOP. TECHNIQUE: Following IV injection of 10-mbbsai-4-deoxyglucose (FDG) a standard uptake of approximately 60 [...] of RCHOP. TECHNIQUE: Following IV injection of 65-cfggau-7-deoxyglucose (FDG) astandard uptake of approximately 60 minutes, [...] patients who have questions please contactthe health insurance healthcare representative that requested your imaging first. Electronically signed by: Tracey Flood MD, [facility]([phone]), at 03/08/2023 11:33 AM Yael Merlos SWING GRINDER IMG PET ORDERABLES documented in this encounter [...] Port documented in this encounter Care Teams Moisture Conditioner Operator Relationship Specialty Start Date End Date Frederick Meade MD [address] [place] [address] PCP - General Family Medicine 11/29/17 documented as of this encounter
--- OUTSIDE RECORDS SUMMARY | 2023-10-17 03:27 | XMS_ITS | Encounter Summary ---
Author Organization [place] [address] Care Team Providers Care Air Hose Coupler Name Role Phone Frederick Meade MD Primary Care Provider +1 -[phone] Reason for Visit * Reason Comments Chemotherapy [id number] * Treatment/Therapy Plan Authorization (Routine) - Closed [...] [facility] DR HEMATOLOGY [place] [address] [facility] [address] [place] [phone] Referral ID Status Reason Start Date Expiration Date Visits Re quested Visits Authorized [id number] Closed 10/11/2022 10/11/2023 1 100 Encounter Details Date Type Department Care Team (Late st Contact Info) Description 01/10/2023 9:00 AM EST Infusion Hematology Oncology at [address] [phone] Diffuse large B-cell lymphoma of [...] treatment. OBJECTIVE LAB DATA: completed today at [facility] Pre administration: Chemotherapy orders independently verified [...] EDT TH Visit (TeleHealth) Hematology/Oncology at [address] [phone] Adrianne Ramon MD [facility] DR HEMATOLOGY [place] [address] Yael Merlos APRN [facility] HEMATOLOGY [place] [address] 10/17/2023 1:30 PM EDT Infusion Hematology Oncology at [address] [address] 10/26/2023 9:00 AM EDT Office Visit Hematology [place] [address] Reynold Proctor MD [facility] [place] [address] 11/14/2023 9:30 AM EDT Office Visit Hematology/Oncology at [address] [phone] Adrianne Ramon MD [facility] HEMATOLOGY [place] [address] Yael Merlos APRN [facility] DR HEMATOLOGY [place] [address] 11/14/2023 10:00 AM EDT Infusion Hematology Oncology at [address] [phone] documented as of this encounter [...] 2 minutes is a recommendation from the reweaver. Administer prior to chemotherapy., Routine Given 01/10/2023 [...] Job Aid: Adult Flushing & Catheter Care (4032) job aid for additional information regarding guidelines [...] Job Aid: Adult Flushing & Catheter Care (8352) job aid for additional information regarding guidelines [...] mL/hr documented in this encounter Care Teams Air Hose Coupler Relationship Specialty Start Date End Date Frederick Meade MD [address] [place] [address] PCP - General Family Medicine 11/29/17 documented as of this encounter
--- OUTSIDE RECORDS SUMMARY | 2023-10-17 03:27 | XMS_ITS | Encounter Summary ---
Author Organization [facility] [place] [address] Care Team Providers Care Probate Judge Name Role Phone Frederick Meade MD Primary Care Provider +1 -[phone] Encounter Details Date Type Department Care Team (Late st Contact Info) Description 11/15/2022 12:30 PM EDT Office Visit Hematology/Oncology at [address] [phone] Adrianne Ramon MD [facility] DR HEMATOLOGY [place] [address] Yael Merlos APRN [facility] DR HEMATOLOGY [place] [address] Diffuse large B-cell lymphoma of lymph nodes [...] EDT TH Visit (TeleHealth) Hematology/Oncology at [address] [phone] Adrianne Ramon MD [facility] HEMATOLOGY [place] [address] Yael Merlos APRN [facility] HEMATOLOGY [place] [address] 10/17/2023 1:30 PM EDT Infusion Hematology Oncology at [address] [phone] 10/26/2023 9:00 AM EDT Office Visit Hematology [place] [address] Reynold Proctor MD [facility] [place] [address] 11/14/2023 9:30 AM EDT Office Visit Hematology/Oncology at [address] [phone] Adrianne Ramon MD [facility] HEMATOLOGY AND [place] [address] Yael Merlos APRN [facility] HEMATOLOGY [place] [address] 11/14/2023 10:00 AM EDT Infusion Hematology Oncology at [address] [phone] documented as of this encounter Procedures Procedure [...] regions documented in this encounter Care Teams Probate Judge Relationship Specialty Start Date End Date Frederick Meade MD [address] [place] [address] [address] [place] [address] PCP - General Family Medicine 11/29/17 documented as of this encounter
--- OUTSIDE RECORDS SUMMARY | 2023-10-17 03:27 | XMS_ITS | Encounter Summary ---
[facility] [place] [address] Care Team Providers Care Claims Account Manager Name Role Phone Frederick Meade MD Primary Care Provider +1 -[phone] Reason for Visit * Reason Onset Date Comments Other 11/15/2022 To ER Encounter Details Date Type Department Care Team (Late st Contact Info) Description 11/15/2022 Telephone Hematology/Oncology at [address] [phone] Polly Orellana RN Other [...] Ramon ask he go to ER. Called [facility] Er and gave report to RN. Recent notes faxed. documented in this encounter Plan of Treatment Upcoming Encounters Date Type Department Care Team (Late st Contact Info) Description 10/17/2023 1:00 PM EDT TH Visit (TeleHealth) Hematology/Oncology at [address] [phone] Adrianne Ramon MD [facility] HEMATOLOGY [place] [address] Yael Merlos APRN [facility] HEMATOLOGY [place] [address] 10/17/2023 1:30 PM EDT Infusion Hematology Oncology at [address] [phone] 10/26/2023 9:00 AM EDT Office Visit [place]ematology [place] [address] Reynold Proctor MD [facility] [place] [address] 11/14/2023 9:30 AM EDT Office Visit Hematology/Oncology at [address] [phone] Adrianne Ramon MD [facility] [place] [address] Yael Merlos, KARLA [facility] [place] [address] 11/14/2023 10:00 AM EDT Infusion Hematology Oncology at [address] [phone] documented as of this encounter Visit Diagnoses Not on filedocumented in this encounter Care Teams Claims Account Manager Relationship Specialty Start Date End Date Frederick Meade MD [address] [place], [place] [id number] PCP - General Family Medicine 11/29/17 documented as of this encounter
--- OUTSIDE RECORDS SUMMARY | 2023-10-17 03:27 | XMS_ITS | Encounter Summary ---
Author Organization [facility] Address [facility] [place] [address] Care Team Providers Care Supplier Development Manager Name Role Phone Frederick Meade MD Primary Care Provider [phone] [phone] Encounter Details Date Type Department Care Team (Late st Contact Info) Description 12/06/2022 2:30 PM EDT TH Visit (TeleHealth) Hematology/Oncology at [address] [phone] Adrianne Ramon MD [facility] [address] [place] [address] Diffuse large B-cell lymphoma of lymph nodes [...] - 12/06/2022 3:30 PM EDT Hematology Clinic [facility] [place] [id number] HEMATOLOGY PATIENT EVALUATION Patient Active Problem List [...] ~2 weeks ago saw [facility] in [facility] and when to [facility]. No beds so sent to [facility] for [address] [...] x7 days with nice response. Pathology from [facility] reports large B-cell lymphoma. Double expresser. [...] and needle of cervical LN. FISH from [place] No MYCrearrangement and no fusion of MYC [...] only 1 biologic. Son Cheo Freire. Enjoys [employer], [employer], [employer], [employer]. [employer]. 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 Not a . ETOH: 1-3 beers per week Smoking: Quit 1985. Approximately 98-gejp-xlmr history Vaping or electronic cigarettes: denies Chewing [...] and BCL-2 protein (Double Expressor.) Flow cytometry ([id number]) supports this interpretation. FISH from [place] No MYC rearrangement and no fusion of MYC and IGH was observed, CD3 (SP7, [employer]) Background T-cells CD20 (L26, [place]) diffusely positive in Neoplastic B-cells PAX-5 (1EW, [employer]) diffusely positive in Neoplastic B-cells CD10 (SP67, [place]) Negative BCL-6 (G/191E/A8, [place]) Positive MUM-1 (MUM1p, Dako) Positive Myc (Y69, [employer]) Positive BCL-2 Oncoprotein (124, [place]) Positive Ki67 (MIB-1) (K2, [employer]) Greater than 95% of cells in cycle Cyclin D1(SP4-R, [place]) Negative SAPPHIRE JOSE ([id number], [employer]) Negative. DIAGNOSTICS: 11/28/22 ECHO after C#2 [...] investigation with ultrasound. CT CAP at [facility], report and images have been requested. [...] last ECHO on 11/28/22) Next ECHO at [facility] on 01/25/23 Suspected MEHNAZ - Hgb drop 3gm in last 2 weeks. No overt bleeding. Taking oral iron bid. Stools have been phone screener recently. No COLO in last 10 years. [...] Jan 2023 - booked for 01/25/23 at [facility] Stop iron, not MEHNAZ, has anemia [...] EDT TH Visit (TeleHealth) Hematology/Oncology at [address] [phone] Adrianne Ramon MD [facility] DR HEMATOLOGY [place] [address] Yael Merlos, ASSOCIATE PROPERTY MANAGER [facility] [place] [address] 10/17/2023 1:30 PM EDT Infusion Hematology Oncology at [address] [phone] 10/26/2023 9:00 AM EDT Office Visit Hematology [place] [address] Reynold Proctor MD [facility] [place] [address] 11/14/2023 9:30 AM EDT Office Visit Hematology/Oncology at [address] [phone] Adrianne Ramon MD [facility] [place] [address] Yael Merlos APRN [facility] [place] [address] 11/14/2023 10:00 AM EDT Infusion Hematology Oncology at [address] [phone] documented as of this encounter Procedures Procedure Name Priority Date/Time Associated Diagnosis Comments CBC (WITH DIFF) Routine 12/06/2022 COMPREHENSIVE METABOLIC PANEL Routine 12/06/2022 documented in this encounter Results * Comprehensive metabolic panel (non-fasting) (12/06/2022) Pathologist [facility] Creatinine 0.9 Potassium 3.3 Bilirubin, Total 0.3 [...] regions documented in this encounter Care Teams Supplier Development Manager Relationship Specialty Start Date End Date Frederick Meade MD [facility] [address] [place] [address] PCP - General Family Medicine 11/29/17 documented as of this encounter
--- OUTSIDE RECORDS SUMMARY | 2023-10-17 03:27 | XMS_ITS | Encounter Summary ---
Author Organization [facility] [place] [address] Care Team Providers Care Cement Finisher Apprentice Name Role Phone Frederick Meade MD Primary Care Provider [phone] [phone] Encounter Details Date Type Department Care Team [...] EDT TH Visit (TeleHealth) Hematology/Oncology at [address] [phone] Adrianne Ramon MD [facility] [place] [address] Yael Merlos APRN [facility] [place] [address] 10/17/2023 1:30 PM EDT Infusion Hematology Oncology at [address] [phone] 10/26/2023 9:00 AM EDT Office Visit Hematology [place] [address] Reynold Proctor MD [facility] [place] [address] 11/14/2023 9:30 AM EDT Office Visit Hematology/Oncology at [address] [phone] Adrianne Ramon MD [facility] [place] [address] Yael Melros APRN [facility] [place] [address] 11/14/2023 10:00 AM EDT Infusion Hematology Oncology at [address] [phone] documented as of this encounter Visit Diagnoses Not on filedocumented in this encounter Care Teams Cement Finisher Apprentice Relationship Specialty Start Date End Date Frederick Meade MD [address] [place], [place] [id number] PCP - General Family Medicine 11/29/17 documented as of this encounter
--- OUTSIDE RECORDS SUMMARY | 2023-10-17 03:27 | XMS_ITS | Encounter Summary ---
Author Organization [facility] [place] [address] Care Team Providers Care Silk Washing Machine Operator Name Role Phone Frederick Meade MD Primary Care Provider [phone] [phone] Encounter Details Date Type Department Care Team [...] EDT TH Visit (TeleHealth) Hematology/Oncology at [address] [phone] Adrianne Ramon MD [facility] [place] [address] Yael Merlos APRN [facility] [place] [address] 10/17/2023 1:30 PM EDT Infusion Hematology Oncology at [address] [phone] 10/26/2023 9:00 AM EDT Office Visit Hematology [place] [address] Reynold Proctor MD [facility] [place] [address] 11/14/2023 9:30 AM EDT Office Visit Hematology/Oncology at [address] [phone] Adrianne Ramon MD [facility] [place] [address] Yael Merlos APRN [facility] [place] [address] 11/14/2023 10:00 AM EDT Infusion Hematology Oncology at [address] [phone] documented as of this encounter Visit Diagnoses Not on filedocumented in this encounter Care Teams Silk Washing Machine Operator Relationship Specialty Start Date End Date Frederick Meade MD [address] [place], [place] [phone] PCP - General Family Medicine 11/29/17 documented as of this encounter
--- OUTSIDE RECORDS SUMMARY | 2023-10-17 03:27 | XMS_ITS | Encounter Summary ---
Author Organization [facility] Address [facility] [place] [address] Care Team Providers Care Quilting Supervisor Name Role Phone Frederick Meade MD Primary Care Provider [phone] [phone] Encounter Details Date Type Department Care Team (Late st Contact Info) Description 01/10/2023 8:30 AM EST Office Visit Hematology/Oncology at [address] [phone] Adrianne Ramon MD [facility] DR [place] [address] Diffuse large B-cell lymphoma of lymph nodes [...] - 01/10/2023 8:30 AM EST Hematology Clinic [facility] [place] [address] HEMATOLOGY PATIENT EVALUATION Patient Active Problem [...] [facility] and when to [facility]. No beds so sent to [facility] [...] days with nice response. Pathology from [facility] reports large B-cell lymphoma. Double expresser. [...] and needle of cervical LN. FISH from [place] No MYCrearrangement and no fusion of MYC [...] only 1 biologic. Son Cheo Freire. Enjoys [employer], [employer], [employer], [employer]. [employer]. 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 Not a . ETOH: 1-3 beers per week Smoking: Quit 1985. Approximately 48-itdl-irfq history Vaping or electronic cigarettes: denies Chewing [...] is a delightful 72-year old male in [facility]. He is accompanied to the [...] and BCL-2 protein (Double Expressor.) Flow cytometry ([id number]) supports this interpretation. FISH from [place] No MYC rearrangement and no fusion of MYC and IGH was observed, CD3 (SP7, Thermo Scientific) Background T-cells CD20 (L26, [place]) diffusely positive in Neoplastic B-cells PAX-5 (1EW, Leica) diffusely positive in Neoplastic B-cells CD10 (SP67, [place]) Negative BCL-6 (G/191E/A8, [place]) Positive MUM-1 (MUM1p, Dako) Positive Myc (Y69, [employer]) Positive BCL-2 Oncoprotein (124, [place]) Positive Ki67 (MIB-1) (K2, Leica) Greater than 95% of cells in cycle Cyclin D1(SP4-R, [place]) Negative SAPPHIRE JOSE ([id number], [employer]ica) Negative. DIAGNOSTICS: 11/28/22 ECHO after C#2 [...] undergo investigation with ultrasound. CT CAP at [facility], report and images have been requested. [...] Final PET week of Mar 05 at [facility] [place]/14/22 I discussed all of the above with the patient and all of his questions were answered. Support and counseling as appropriate. Copy Frederick Meade MD documented in this encounter Plan of Treatment Upcoming Encounters Date Type Department Care Team (Late st Contact Info) Description 10/17/2023 1:00 PM EDT TH Visit (TeleHealth) Hematology/Oncology at [address] [phone] Adrianne Ramon MD [facility] [place] [address] Yael Merlos, KARLA [facility] HEMATOLOGY [place] [address] 10/17/2023 1:30 PM EDT Infusion Hematology Oncology at [address] [phone] 10/26/2023 9:00 AM EDT Office Visit Hematology [place] [address] Reynold Proctor MD [facility] [place] [address] 11/14/2023 9:30 AM EDT Office Visit Hematology/Oncology at [address] [phone] Adrianne Ramon MD [facility] [place] [address] Yael Merlos APRN [facility] [place] [address] 11/14/2023 10:00 AM EDT Infusion Hematology Oncology at [address] [phone] documented as of this encounter [...] regions documented in this encounter Care Teams Quilting Supervisor Relationship Specialty Start Date End Date Frederick Meade MD [address] [place] [address] PCP - General Family Medicine 11/29/17 documented as of this encounter
--- OUTSIDE RECORDS SUMMARY | 2023-10-17 03:27 | XMS_ITS | Encounter Summary ---
Author Organization [facility] Address [facility] [place] [address] Care Team Providers Care Appliance Service Representative Name Role Phone Frederick Meade MD Primary Care Provider [phone] [phone] Encounter Details Date Type Department Care Team (Late st Contact Info) Description 11/29/2022 Notes Only Hematology/Oncology at [address] [phone] Shelley Cason, [facility] [...] the team is looking at more affordableoptions. CUFF [employer]KER does not have a solution to the cost but offered information about the [facility] [employer] which if approved would send a monthly [...] EDT TH Visit (TeleHealth) Hematology/Oncology at [address] [phone] Adrianne Ramon MD [facility] HEMATOLOGY [place] [address] Yael Merlos, CONTROL ROOM TECHNICIAN [facility] [place] [address] 10/17/2023 1:30 PM EDT Infusion Hematology Oncology at [address] [phone] 10/26/2023 9:00 AM EDT Office Visit Hematology [place] [address] Reynold Proctor MD [facility] [address] 11/14/2023 9:30 AM EDT Office Visit Hematology/Oncology at [address] [phone] Adrianne Ramon MD [facility] [place] [address] Yael Merlos [facility] [place] [address] 11/14/2023 10:00 AM EDT Infusion Hematology Oncology at [address] [phone] documented as of this encounter Visit Diagnoses Not on filedocumented in this encounter Care Teams Appliance Service Representative Relationship Specialty Start Date End Date Frederick Meade MD [address] [place] [address] [address] [place] [address] PCP - General Family Medicine 11/29/17 documented as of this encounter
--- OUTSIDE RECORDS SUMMARY | 2023-10-17 03:27 | XMS_ITS | Encounter Summary ---
Author Organization [facility] [place] [address] Care Team Providers Care Assembler Final Name Role Phone Frederick Meade MD Primary Care Provider [phone] [phone] Encounter Details Date Type Department Care Team [...] EDT TH Visit (TeleHealth) Hematology/Oncology at [address] [phone] Adrianne Ramon MD [facility] HEMATOLOGY [place] [address] Yael Merlos APRN [facility] HEMATOLOGY [place] [address] 10/17/2023 1:30 PM EDT Infusion Hematology Oncology at [address] [phone] 10/26/2023 9:00 AM EDT Office Visit Hematology [place] [address] Reynold Proctor MD [facility] [address] 11/14/2023 9:30 AM EDT Office Visit Hematology/Oncology at [address] [phone] Adrianne Ramon MD [facility] HEMATOLOGY [place] [address] Yael Merlos APRN [facility] HEMATOLOGY [place] [address] 11/14/2023 10:00 AM EDT Infusion Hematology Oncology at [address] [phone] documented as of this encounter Visit Diagnoses Not on filedocumented in this encounter Care Teams Assembler Final Relationship Specialty Start Date End Date Frederick Meade MD [address] [place], [place] [phone] PCP - General Family Medicine 11/29/17 documented as of this encounter
--- OUTSIDE RECORDS SUMMARY | 2023-10-17 03:27 | XMS_ITS | Encounter Summary ---
[place] [address] Care Team Providers Care Polygraph Technician Name Role Phone Frederick Meade MD Primary Care Provider +1 -[phone] Reason for Visit * Diagnostic Test (Routine) - Closed Specialty Diagnoses / Procedures Referred By Contac t Referred To Contact Radiology Diagnoses Diffuse large B-cell lymphoma of lymph nodes of multiple regions Procedures NM PET CT Standard Plus Extremities and Head Yael Merlos [facility] HEMATOLOGY [place] [address] [place] [address] Referral ID Status Reason Start Date Expiration Date V isits Requested Visits Authorized [id number] Closed Specialty Service Requested 12/20/2022 06/19/2024 1 1 Encounter Details Date Type Department Care Team (Latest Contact Info) Description 01/05/2023 7:19 AM EST - 01/05/2023 11:59 PM [facility] Hospital En[place] [address] Yael Merlos [facility] HEMATOLOGY [place] [address] Discharge Disposition: Home Social History [...] tablet Take 5 mg by mouth daily. IdeaStringUCH ULTRA BLUE TEST STRIP Strip USE TO [...] EDT TH Visit (TeleHealth) Hematology/Oncology at [address] [phone] Adrianne Ramon MD [facility] DR HEMATOLOGY [place] [address] Yael Merlos APRN [facility] HEMATOLOGY [place] [address] 10/17/2023 1:30 PM EDT Infusion Hematology Oncology at [address] [phone] 10/26/2023 9:00 AM EDT Office Visit Hematology [place] [address] Reynold Proctor MD [facility] [place] [address] 11/14/2023 9:30 AM EDT Office Visit Hematology/Oncology at [address] [phone] Adrianne Ramon MD [facility] HEMATOLOGY [place] [address] Yael Merlos APRN [facility] HEMATOLOGY [place] [address] 11/14/2023 10:00 AM EDT Infusion Hematology Oncology at [address] [phone] documented as of this encounter Procedures Procedure Name Priority Date/Time Associated Diagnosis Comments NM PET CT STANDARD PLUS EXTREMITIES AND HEAD Routine 01/05/2023 9:05 AM EST Diffuse large B-cell lymphoma of lymph nodes of multiple regions POCT GLUCOSE Routine 01/05/2023 7:26 AM EST documented in this encounter Results * POCT Glucose (01/05/2023 7:26 AM EST) Glucose, POC 124 65 - 199 mg/dL [facility] Comment: Supplemental ranges: <140 mg/dL before meals <180 mg/dL all other times of the day Blood 01/05/2023 7:26 AM EST 01/05/2023 7:26 AM EST Yael Merlos APRN POINT OF CARE TEST ORDERABLES [facility] [place] [address] documented in this encounter Visit Diagnoses Not on filedocumented in this encounter Care Teams Polygraph Technician Relationship Specialty Start Date End Date Frederick Meade MD [address] [place] [address] PCP - General Family Medicine 11/29/17 documented as of this encounter
--- OUTSIDE RECORDS SUMMARY | 2023-10-17 03:27 | XMS_ITS | Encounter Summary ---
[place] [address] Care Team Providers Care Oxygen System Tester Name Role Phone Frederick Meade MD Primary Care Provider [phone] [phone] Reason for Referral * Diagnostic Test (Routine) - Closed Specialty Diagnoses / Procedures Referred By Contac t Referred To Contact Radiology Diagnoses Diffuse large B-cell lymphoma of lymph nodes of multiple regions Procedures NM PET CT Standard Plus Extremities and Head Yael Merlos APRN [facility] [place] [address] [place] [address] Referral ID Status Reason Start Date Expiration Date V isits Requested Visits Authorized [id number] Closed Specialty Service Requested 12/20/2022 06/19/2024 1 1 Reason for Visit * Reason Comments Follow-up Chemotherapy Encounter Details Date Type Department Care Team (Late st Contact Info) Description 12/20/2022 8:30 AM EDT Office Visit Hematology/Oncology at [address] [phone] Adrianne Ramon MD [facility] [place] [address] Yael Merlos APRN [facility] [place] [address] Diffuse large B-cell lymphoma of lymph nodes [...] this encounter Progress Notes * Yael Merlos, WIRE PREPARATION MACHINE TENDER - 12/20/2022 8:30 AM EDT Hematology Clinic [facility] [place] [address] HEMATOLOGY PATIENT EVALUATION Patient Active Problem List [...] in [facility] and when to [facility]. No beds so sent to [facility] for [address]. [address] CAP, [...] - last COLO at [facility] was 01/17/2012. INTERIM HISTORY OF PRESENT [...] and needle of cervical LN. FISH from [place] No MYCrearrangement and no fusion of MYC [...] only 1 biologic. Son Cheo Freire. Enjoys [employer], movies, race car, cards. [employer]. 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 Not a . ETOH: 1-3 beers per week Smoking: Quit 1985. Approximately 36-wvfh-jgva history Vaping or electronic cigarettes: denies Chewing [...] and BCL-2 protein (Double Expressor.) Flow cytometry ([id number]) supports this interpretation. FISH from [place] No MYC rearrangement and no fusion of MYC and IGH was observed, CD3 (SP7, Thermo Scientific) Background T-cells CD20 (L26, [place]) diffusely positive in Neoplastic B-cells PAX-5 (1EW, Leica) diffusely positive in Neoplastic B-cells CD10 (SP67, [place]) Negative BCL-6 (G/191E/A8, [place]) Positive MUM-1 (MUM1p, Dako) Positive Myc (Y69, Abcam) Positive BCL-2 Oncoprotein (124, [place]) Positive Ki67 (MIB-1) (K2, Leica) Greater than 95% of cells in cycle Cyclin D1(SP4-R, [place]) Negative SAPPHIRE JOSE ([id number], Leica) Negative. DIAGNOSTICS: 11/28/22 ECHO after C#2 [...] undergo investigation with ultrasound. CT CAP at [facility], report and images have been requested. ASSESSMENT/PLAN: [...] 2023 - booked for 01/25/23 at [facility] Recommend COVID vaccine though he is aware that he may not have a robust response due to ongoing chemotherapy with B-cell depletion. He has already received influenza vaccine. I discussed all of the above with the patient and all of his questions were answered. Support and counseling as appropriate. Yael Merlos, MSN, WIRE PREPARATION MACHINE TENDER Nurse practitioner Section of Hematology Copy Frederick Meade MD documented in this encounter Plan of Treatment Upcoming Encounters Date Type Department Care Team (Late st Contact Info) Description 10/17/2023 1:00 PM EDT TH Visit (TeleHealth) Hematology/Oncology at [address] [phone] Adrianne Ramon MD [facility] HEMATOLOGY [place] [address] Yael Merlos, WIRE PREPARATION MACHINE TENDER [facility] HEMATOLOGY [place] [address] 10/17/2023 1:30 PM EDT Infusion Hematology Oncology at [address] [phone] 10/26/2023 9:00 AM EDT Office Visit Hematology [place] [address] Reynold Proctor MD [facility] [place] [address] 11/14/2023 9:30 AM EDT Office Visit Hematology/Oncology at [address] [phone] Adrianne Ramon MD [facility] [place] [address] Yael Merlos APRN [facility] [place] [address] 11/14/2023 10:00 AM EDT Infusion Hematology Oncology at [address] [phone] documented as of this encounter Procedures Procedure [...] have questions please contact the health childcare worker that requested your imaging first. ? Electronically signed by: Fletcher Duckworth MD, [facility] ([phone]), at 01/05/2023 9:50 AM Narrative 01/05/2023 9:50 AM EST EXAMINATION: NM PET CT STANDARD PLUS EXTREMITIES AND HEAD CLINICAL HISTORY: Hematologic malignancy, assess treatment response Non-Hodgkin lymphoma TECHNIQUE: Procedure: Following IV injection of 77-fdmfvn-5-deoxyglucose (FDG) a standard uptake of approximately 60 [...] lymphoma TECHNIQUE: Procedure: Following IV injection of 02-nzsndz-2-deoxyglucose(FDG) a standard uptake of approximately 60 minutes, [...] of the left upper lobe (image 131 [id number]). These foci are new since the prior [...] who have questions please contactthe health childcare worker that requested your imaging first. Electronically signed by: Fletcher Duckworth MD, [facility]([phone]), at 01/05/2023 9:50 AM Yael Merlos WIRE PREPARATION MACHINE TENDER IMG PET ORDERABLES * Comprehensive metabolic panel (non-fasting) (12/20/2022) Pathologist [facility] Creatinine 0.9 Potassium 3.4 Bilirubin, Total 0.2 Aspartate Aminotransferase 15 Alanine Aminotransferase 19 Lactate Dehydrogenase 174 Iron 33 TIBC 197 Iron Saturation 17 Ferritin 279 Blood 12/20/2022 Historical Provider CHEMISTRY ORDERAB LES * CBC (with Diff) (12/20/2022) [facility] White Blood Cell 8 Hemoglobin 9.8 Hematocrit 30.3 Platelet 264 ANC 5.61 Blood 12/20/2022 Historical Provider HEMATOLOGY ORDERA BLES documented in this encounter Visit Diagnoses Diagnosis 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
--- OUTSIDE RECORDS SUMMARY | 2023-10-17 03:27 | XMS_ITS | Encounter Summary ---
Author Organization [facility] [place] [address] Care Team Providers Care Hoe Runner Name Role Phone Frederick Meade MD Primary Care Provider [phone] Encounter Details Date Type Department Care Team [...] EDT TH Visit (TeleHealth) Hematology/Oncology at [address] [phone] [facility] HEMATOLOGY [place] [address] [facility] HEMATOLOGY [place] [address] 10/17/2023 1:30 PM EDT Infusion Hematology Oncology at [address] [phone] 10/26/2023 9:00 AM EDT Office Visit Hematology [place] [address] [facility] [place] [address] 11/14/2023 9:30 AM EDT Office Visit Hematology/Oncology at [address] [phone] [facility] HEMATOLOGY [place] [address] [facility] HEMATOLOGY [place] [address] 11/14/2023 10:00 AM EDT Infusion Hematology Oncology at [address] [phone] documented as of this encounter Visit Diagnoses Not on filedocumented in this encounter Care Teams Hoe Runner Relationship Specialty Start Date End Date Frederick Meade MD [address] [place], [place] [id number] PCP - General Family Medicine 11/29/17 documented as of this encounter
--- OUTSIDE RECORDS SUMMARY | 2023-10-17 03:28 | XMS_ITS | Encounter Summary ---
Author Organization [facility] [place] [address] Care Team Providers Care Teacher Home Therapy Name Role Phone Frederick Meade MD Primary Care Provider [phone] Encounter Details Date Type Department Care Team (Late st Contact Info) Description 10/19/2022 Telephone Hematology/Oncology at [address] [phone] Brenda Priest, RN Social History [...] EDT TH Visit (TeleHealth) Hematology/Oncology at [address] [phone] Adrianne Ramon MD [facility] [place] [address] Yael Merlos APRN [facility] [place] [address] 10/17/2023 1:30 PM EDT Infusion Hematology Oncology at [address] [address] 10/26/2023 9:00 AM EDT Office Visit Hematology [place] [address] Reynold Proctor MD [facility] [place] [address] 11/14/2023 9:30 AM EDT Office Visit Hematology/Oncology at [address] [phone] Adrianne Ramon MD [facility] DR [place] [address] Yael Merlos, KARLA [facility] DR [place] [address] 11/14/2023 10:00 AM EDT Infusion Hematology Oncology at [address] [phone] documented as of this encounter Visit Diagnoses Not on filedocumented in this encounter Care Teams Teacher Home Therapy Relationship Specialty Start Date End Date Frederick Meade MD [address] [place] [address] PCP - General Family Medicine 11/29/17 documented as of this encounter
--- OUTSIDE RECORDS SUMMARY | 2023-10-17 03:28 | XMS_ITS | Encounter Summary ---
Author Organization [facility] Address [facility] [place] [address] Care Team Providers Care Banquet Stewardess Name Role Phone Frederick Meade MD Primary Care Provider [phone] Reason for Visit * Reason Onset Date Comments Other 10/30/[address] admission to [facility] Encounter Details Date Type Department Care Team (Late st Contact Info) Description 10/30/2022 Telephone Hematology/Oncology at [address] [phone] Lucía Nelson RN Other (FUV questions after admission to [facility]) Social History Tobacco Use Types Packs/Day Years [...] - 10/30/2022 10:39 AM EDT Cheo Freire [phone] Cheo was admitted to [facility] 10/25-10/29 for fevers and neutropenia. Missed his pita apt that Shayy Jarrett APRN was going to do last week. [facility] Cycle 1 10/18. Cycle [...] EDT TH Visit (TeleHealth) Hematology/Oncology at [address] [phone] Adrianne Ramon MD [facility] HEMATOLOGY [place] [address] Yael Merlos APRN [facility] HEMATOLOGY [place] [address] 10/17/2023 1:30 PM EDT Infusion Hematology Oncology at [address] [phone] 10/26/2023 9:00 AM EDT Office Visit [place]ematology [place] [address] Reynold Proctor MD [facility] [place] [address] 11/14/2023 9:30 AM EDT Office Visit Hematology/Oncology at [address] [phone] Adrianne Ramon MD [facility] HEMATOLOGY [place] [address] Yael Merlos APRN [facility] HEMATOLOGY [place] [address] 11/14/2023 10:00 AM EDT Infusion Hematology Oncology at [address] [phone] documented as of this encounter Visit Diagnoses Not on filedocumented in this encounter Care Teams Banquet Stewardess Relationship Specialty Start Date End Date Frederick Meade MD [address] [place] [address] [address] [place] [address] PCP - General Family Medicine 11/29/17 documented as of this encounter
--- OUTSIDE RECORDS SUMMARY | 2023-10-17 03:28 | XMS_ITS | Encounter Summary ---
[place] [address] Care Team Providers Care Dental Professional Name Role Phone Frederick Meade MD Primary Care Provider [phone] Encounter Details Date Type Department Care Team (Late st Contact Info) Description 10/17/2022 Notes Only Hematology [place] [phone] Bailey Moran, RN Social History Tobacco Use [...] EDT TH Visit (TeleHealth) Hematology/Oncology at [address] [phone] Adrianne Ramon MD [facility] HEMATOLOGY [place] [address] Yael Merlos [address]N [facility] HEMATOLOGY [place] [address] 10/17/2023 1:30 PM EDT Infusion Hematology Oncology at [address] [phone] 10/26/2023 9:00 AM EDT Office Visit Hematology [place] [address] Reynold Proctor MD [facility] [place] [place] [address] 11/14/2023 9:30 AM EDT Office Visit Hematology/Oncology at [address] [phone] Adrianne Ramon MD [facility] HEMATOLOGY [place] [address] Yael Merlos, PEDIATRICS PHYSICIAN [facility] HEMATOLOGY [place] [address] 11/14/2023 10:00 AM EDT Infusion Hematology Oncology at [address] [phone] documented as of this encounter Visit Diagnoses Not on filedocumented in this encounter Care Teams Dental Professional Relationship Specialty Start Date End Date Frederick Meade MD [address] [place] [address] PCP - General Family Medicine 11/29/17 documented as of this encounter
--- OUTSIDE RECORDS SUMMARY | 2023-10-17 03:28 | XMS_ITS | Encounter Summary ---
Author Organization [facility] [place] [address] Care Team Providers Care Industrial Chemicals Supervisor Name Role Phone Frederick Meade MD Primary Care Provider [phone] [phone] Reason for Referral * Consultation (Urgent) - Closed Specialty Diagnoses / Procedures Referred By Paul bowen Referred To Contact Cardiology Diagnoses Diffuse large B-cell lymphoma of lymph nodes of multiple regions CARD-ONC Pt w/o cardiac hx. New lymphoma. Needs anthracycline. Echo w/ EF 49% & mild global hypokinesis. Please eval for ongoing anthracycline safety. Adrianne Mera MD [facility] DR HEMATOLOGY [place] [address] Chalo Mcintyre MD [facility] [place] [address] Referral ID Status Reason Start Date Expiration Date V isits Requested Visits Authorized [id number] Closed Consult, Test & Treat 10/12/2022 10/12/2023 1 1 * Diagnostic Test (Routine) - Closed Specialty Diagnoses / Procedures Referred By Paul bowen Referred To Contact Cardiology Diagnoses Diffuse large B-cell lymphoma of lymph nodes of multiple regions Procedures Echocardiogram Transthoracic Adrianne Mera MD [facility] HEMATOLOGY [place] [address] [facility] [place] [address] Referral ID Status Reason Start Date Expiration Date V isits Requested Visits Authorized [id number] Closed Specialty Service Requested 10/12/2022 10/12/2023 1 1 Reason for Visit * Reason Comments Follow-up Encounter Details Date Type Department Care Team (Late st Contact Info) Description 10/12/2022 1:30 PM EDT Office Visit Hematology [place] [address] Adrianne Mera MD [facility] DR [place] [address] Adrianne Aquino APRN [facility] [place] [address] Diffuse large B-cell lymphoma of [...] - 10/12/2022 1:30 PM EDT [place] [address] NEW PATIENT EVALUATION Patient Active [...] [facility] and when to [facility]. No beds so sent to [facility] for [address]. [address] CAP, [...] COLO at [facility] was 01/17/2012. Cheo returns today with his [...] only 1 biologic. Son Cheo Freire. Enjoys [employer], race car, cards. [employer]. 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 Not a . ETOH: 1-3 beers per week Smoking: Quit 1985. Approximately 31-ekmy-qhst history Vaping or electronic cigarettes: denies Chewing [...] Result Value Ref Range Surgical Pathology Report [id number] Location: [facility] The signing pathologist has (i) examined the relevant preparation(s) for the specimen(s) and (ii) rendered or confirmed the diagnosis(es). . Surgical Pathology DIAGNOSIS CONSULTATION CASE A. TONGUE, LEFT BASE (BIOPSY); [OSR# [id number], COLLECTED 10/05/2022, 12 SLIDES]: 1. Diffuse large B-cell lymphoma, activated B-cell subtype (ABC-DLBCL) (see comment) 2. Ki67 proliferation estimated at >95%, lymphoma coexpresses BCL2 and CMYC Electronically signed by: Ole Bowen MD Verified: 10/12/2022 11:37 Hematopathologist Performed at: -[facility] Dept. of Pathology, [place] [address] Quarry Plant Crusher Operator: Katherine Lopez MD, FCAP, [place] Certificate: [id number] DISCUSSION Per report from the referring institution, ...Flow cytometry ([id number]) supports this interpretation. FISH studies were reportedly sent to [facility] to assess for MYC and [...] referring facility, but included for evaluation at [facility]. Appropriate controls are included for each case. . SPECIMEN(S) SUBMITTED CONSULTATION CASE A - 12 slide(s) labeled [id number], collection date 10/05/2022. [id number] CARBON COPY: [facility] Surgical Pathology Department [facility], 2nd Floor [address] [place] [address] CLINICAL INFORMATION A 72 year old man. Per provided report, there is a clinical history of Massive LAD, history of prostate cancer; clinical diagnosis code: R59.1. SPECIMEN PROCESSING [facility] ([facility]) pathology slide(s) are reviewed. Refer to Diagnosis and Specimen Submitted for specific case information. For the full text of the [facility] report(s) please refer to the Chart [...] and BCL-2 protein (Double Expressor.) Flow cytometry ([id number]) supports this interpretation. The differential classification of this lesion is diffuse large B-cell lymphoma versus high grade B-cell lymphoma with MYC and BCL-2 rearrangement. Material has been sent to [facility] to assess the status of these genes by FISH and an addendum report with a definitive classification will be issued upon receipt of the result. CD3 (SP7, Thermo Scientific) Background T-cells CD20 (L26, [place]) diffusely positive in Neoplastic B-cells PAX-5 (1EW, Leica) diffusely positive in Neoplastic B-cells CD10 (SP67, [place]) Negative BCL-6 (G/191E/A8, [place]) Positive MUM-1 (MUM1p, Dako) Positive Myc (Y69, Abcam) Positive BCL-2 Oncoprotein (124, [place]) Positive Ki67 (MIB-1) (K2, Leica) Greater than 95% of cells in cycle Cyclin D1(SP4-R, [place]) Negative SAPPHIRE JOSE ([id number], Leica) Negative. DIAGNOSTICS: 10/11/22 ECHO EF = [...] undergo investigation with ultrasound. CT CAP at [facility], report and images have been [...] chemotherapy. Furtherprednisone prescriptions will be given by [facility], during PTI chemotherapy teaching Cardiac - EF 49%. No stress test in past. Suspected MEHNAZ - Hgb drop 3gm in last 2 weeks. Taking oral iron 2 tabs per day. Stools have been hygiene coordinator recently. No COLO in last 10 years. Will add iron studies to labs today and check PET tomorrow.Will follow. Labs seem most consistent with anemia of chronic disease. Prostate Cancer -DAVE at this time Plan: Follow up on FISH for MYC, BCL-2 and BLC-6 -UV sent these tests out to [place] Prednisone -100 mg on 10/14 and 10/15. Then restart with chemotherapy Mediport -scheduled for Sunday PTI -on 10/18 at 8 AM with Yael Merlos at [facility] Discuss cardiac function, and role of anthracycline with ejection fraction of 49% with Dr. Matthew Mcintyre - message sent today Plan allopurinol X 14 d w/ C#1 Support with Onpro Claritin x1 week status post OnPro ID - acv prophy - add antibiotics only if neutropenic. Midcycle check with Fozia Richardson on 10/25. I appreciate her help. ECHO following C#1 at [facility] approx 10/20/22 Urgent referral to cardiology. Matthew Mcintyre requested. [facility] or [place] I discussed all of the above with the patient and all of his questions were answered. Support and counseling as appropriate. This note was written or modified using [employer] voice recognition software. The final note was screened for compliance analyst errors. Please excuse any remaining errors. Addendum staff message from Matthew Mcintyre, Cardiology: Adrianne; Thanks for the message; will see if we can see him up in [place]. On review of his CT, he has [...] EDT TH Visit (TeleHealth) Hematology/Oncology at [address] [phone] Adrianne Mera MD [facility] DR [place] [address] Yael Merlos APRN [facility] [place] [address] 10/17/2023 1:30 PM EDT Infusion Hematology Oncology at [address] [phone] 10/26/2023 9:00 AM EDT Office Visit [place]ematology [place] [address] Reynold Proctor MD [facility] [place] [address] 11/14/2023 9:30 AM EDT Office Visit Hematology/Oncology at [address] [phone] Adrianne Mera MD [facility] [place] [address] Yael Merlos APRN [facility] [place] [address] 11/14/2023 10:00 AM EDT Infusion Hematology Oncology at [address] [phone] Scheduled Referrals Name Type Priority Associated Diagnoses [...] 11:11 AMBP: 154/72 mmHg ? [facility] 1950 ? Height: 169 cm ? Account: [id number] Age: 72 yrs ? Weight: 93 kg Gender: Male ?BSA: 2.0 m2 Ordering Physician: ADRIANNE MERA Referring Physician: ADRIANNE MERA Performed By: SHAHANA Fernando Reason For Study: Lymphoma Exam Location: [facility]. Interpretation Summary LV systolic function appears to be low-normal. LV ejection fraction appears to be 52%. Global longitudinal strain is measured at -16.6 %. (GE). There are no segmental wall motion abnormalities. Normal right ventricle. No significant valvular abnormalities. Trivial pericardial effusion. On direct comparison to prior echo dated 10/12/2022, the LV function has slightly improved. Procedure Limited - 835[address]. Left ventricular strain. Satisfactory quality. There is [...] - 11/06/2022 Echocardiogram Report Name: CHEO FREIRE Tom Study Date: 1:11 AMBP: 154/72 mmHg Patient Location: : 1950 Height: 169 cm Account: [id number] Age: 72 yrs Weight: 93 kg Gender: Male BSA: 2.0 m2 Ordering Physician: ADRIANNE MERA Referring Physician: ADRIANNE MERA Performed By: SHAHANA Fernando Reason For Study: Lymphoma Exam Location: [facility]. Interpretation Summary LV systolic function appears to be low-normal. LV ejection fractionappears to be 52%. Global longitudinal strain is measured at -16.6 %. (GE). There areno segmental wall motion abnormalities. Normal right ventricle. No significant valvular abnormalities. Trivial pericardial effusion. On direct comparison to prior echo dated 10/12/2022, the LV function hasslightly improved. Procedure Limited - 40044. Left ventricular strain. Satisfactory quality. There isnormal [...] documented in this encounter Care Teams Industrial Chemicals Supervisor Relationship Specialty Start Date End Date Frederick Meade MD [address] [place] [address] [address] [place] [address] PCP - General Family Medicine 11/29/17 documented as of this encounter
--- OUTSIDE RECORDS SUMMARY | 2023-10-17 03:28 | XMS_ITS | Encounter Summary ---
Author Organization [facility] Address [facility] [address] Care Team Providers Care Stitch Burnisher Name Role Phone Frederick Meade MD Primary Care Provider [phone] [phone] Reason for Visit * Reason Onset Date Comments Follow-up 10/25/2022 Pt admitted to [facility] Encounter Details Date Type Department Care Team (Late st Contact Info) Description 10/25/2022 Telephone Hematology/Oncology at [address] [phone] Colt Ardon RN Follow-up (Pt admitted to [facility] ) Social History Tobacco Use Types [...] to report pt is getting admitted to [facility] with dehydration and low WBC. He did end up having a bowel movement ?last night but this morning couldn't urinate and had abdominal pressure again. They went to [facility] ED. Dr Mcbride at [facility] called and is admitted him, stating hisANC was 20. Pt had cycle 1 RCHOP with Neulasta On-pro on 10/18 for his DLBCL. Team made aware. Will check in on pt's disposition tomorrow. documented in this encounter Plan of Treatment Upcoming Encounters Date Type Department Care Team (Late st Contact Info) Description 10/17/2023 1:00 PM EDT TH Visit (TeleHealth) Hematology/Oncology at [address] [phone] Adrianne Ramon MD [facility] HEMATOLOGY [place] [address] Yael Merlos, [employer] LEAD [facility] [place] [address] 10/17/2023 1:30 PM EDT Infusion Hematology Oncology at [address] [phone] 10/26/2023 9:00 AM EDT Office Visit Hematology [place] [address] Reynold Proctor MD [facility] [place] [address] 11/14/2023 9:30 AM EDT Office Visit Hematology/Oncology at [address] [phone] Adrianne Ramon MD [facility] [place] [address] Yael Merlos, [employer] [facility] [place] [address] 11/14/2023 10:00 AM EDT Infusion Hematology Oncology at [address] [phone] documented as of this encounter Visit Diagnoses Not on filedocumented in this encounter Care Teams Stitch Burnisher Relationship Specialty Start Date End Date Frederick Meade MD [address] [place] [address] [address] PCP - General Family Medicine 11/29/17 documented as of this encounter
--- OUTSIDE RECORDS SUMMARY | 2023-10-17 03:28 | XMS_ITS | Encounter Summary ---
Author Organization [facility] [address] Care Team Providers Care Parole Officer Name Role Phone Frederick Meade MD Primary Care Provider [phone] [phone] Reason for Visit * Reason Onset Date Comments Follow-up 11/01/2022 Encounter Details Date Type Department Care Team (Late st Contact Info) Description 11/01/2022 Telephone Hematology/Oncology at [address] [phone] Polly Orellana RN Follow-up Social [...] Dr. Ramon needs them to go to [facility] next Sunday to see Dr. Barbosa. They feel if things continue to get better therewill be no issue, they will let us know if things change. documented in this encounter Plan of Treatment Upcoming Encounters Date Type Department Care Team (Late st Contact Info) Description 10/17/2023 1:00 PM EDT TH Visit (TeleHealth) Hematology/Oncology at [address] [phone] Adrianne Ramon MD [facility] HEMATOLOGY [place] [address] Yael Merlos APRN [facility] HEMATOLOGY [place] [address] 10/17/2023 1:30 PM EDT Infusion Hematology Oncology at [address] [phone] 10/26/2023 9:00 AM EDT Office Visit Hematology [place] [address] Reynold Proctor MD [facility] [place] [address] 11/14/2023 9:30 AM EDT Office Visit Hematology/Oncology at [address] [phone] Adrianne Ramon MD [facility] DR HEMATOLOGY [place] [address] Yael Merlos, MANAGER OPERATING [facility] HEMATOLOGY [place] [address] 11/14/2023 10:00 AM EDT Infusion Hematology Oncology at [address] [phone] documented as of this encounter Visit Diagnoses Not on filedocumented in this encounter Care Teams Parole Officer Relationship Specialty Start Date End Date Frederick Meade MD [address] [place] [address] PCP - General Family Medicine 11/29/17 documented as of this encounter
--- OUTSIDE RECORDS SUMMARY | 2023-10-17 03:28 | XMS_ITS | Encounter Summary ---
Author Organization [facility] [place] [address] Care Team Providers Care Gunstock Spray Unit Feeder Name Role Phone Frederick Meade MD Primary Care Provider [phone] [phone] Reason for Visit * Reason Comments Chemotherapy Teaching Encounter Details Date Type Department Care Team (Late st Contact Info) Description 10/18/2022 8:00 AM EDT Office Visit Hematology/Oncology at [address] [phone] Adrianne Ramon MD [facility] DR HEMATOLOGY [place] [address] Yael Merlos, MANAGER [place] [facility] DR HEMATOLOGY [place] [address] Diffuse large B-cell lymphoma of lymph nodes [...] this encounter Progress Notes * Yael Merlos, MANAGER PORT - 10/18/2022 8:00 AM EDT PATIENT ID: [...] of infection, cataracts and osteoporosis. Medications: please berry picker machine operator the following prescriptions before you start [...] further questions or concerns. Yael Merlos, MSN, MANAGER [place] Nurse Practitioner Section of Hematology [facility] Cc: Frederick Meade MD documented in this encounter Plan of Treatment Upcoming Encounters Date Type Department Care Team (Late st Contact Info) Description 10/17/2023 1:00 PM EDT TH Visit (TeleHealth) Hematology/Oncology at [address] [phone] Adrianne Ramon MD [facility] HEMATOLOGY [place] [address] Yael Merlos APRN [facility] HEMATOLOGY [place] [address] 10/17/2023 1:30 PM EDT Infusion Hematology Oncology at [address] [phone] 10/26/2023 9:00 AM EDT Office Visit Hematology [place] [address] Reynold Proctor MD [facility] [place] [address] 11/14/2023 9:30 AM EDT Office Visit Hematology/Oncology at [address] [phone] Adrianne Ramon MD [facility] HEMATOLOGY [place] [address] Yael Merlos APRN [facility] DR HEMATOLOGY [place] [address] 11/14/2023 10:00 AM EDT Infusion Hematology Oncology at [address] [phone] documented as of this encounter Visit Diagnoses Diagnosis Diffuse large B-cell lymphoma of lymph nodes of multiple regions documented in this encounter Care Teams Gunstock Spray Unit Feeder Relationship Specialty Start Date End Date Frederick Meade MD [address] [place] [address] PCP - General Family Medicine 11/29/17 documented as of this encounter
--- OUTSIDE RECORDS SUMMARY | 2023-10-17 03:28 | XMS_ITS | Encounter Summary ---
Author Organization [facility] Address [facility] [place] [address] Care Team Providers Care Engraver Automatic Name Role Phone Frederick Meade MD Primary Care Provider [phone] Encounter Details Date Type Department Care Team (Late st Contact Info) Description 10/18/2022 Notes Only Hematology/Oncology at [address] [phone] Shelley Cason, [facility] OFFICE OF CARE [...] this encounter Progress Notes * Shelley Cason, MUSICAL INSTRUMENT MAKER OR REPAIRER - 10/18/2022 11:54 AM EDT Reason for Referral: Brief assessment of social and emotional needs. Met with Cheo, his Claritza and his son Cheo during his first infusion visit today to introduce myself and role of social work job titles to assess/address barriers to getting to and [...] Advance care planning Plan: Informed pt of MUSICAL INSTRUMENT MAKER OR REPAIRER availability and contact information. Will follow to assess/address psychosocial needs. FRANCISCO J Wisdom, PROFESSIONAL SKATER, OSW-C Mechanical Drafter [facility] documented in this encounter Plan of Treatment Upcoming Encounters Date Type Department Care Team (Late st Contact Info) Description 10/17/2023 1:00 PM EDT TH Visit (TeleHealth) Hematology/Oncology at [address] [phone] Adrianne Ramon MD [facility] HEMATOLOGY [place] [address] Yael Merlos APRN [facility] HEMATOLOGY [place] [address] 10/17/2023 1:30 PM EDT Infusion Hematology Oncology at [address] [phone] 10/26/2023 9:00 AM EDT Office Visit [place]ematology [place] [address] Reynold Proctor MD [facility] [place] [address] 11/14/2023 9:30 AM EDT Office Visit Hematology/Oncology at [address] [phone] Adrianne Ramon MD [facility] HEMATOLOGY [place] [address] Yael Merlos APRN [facility] HEMATOLOGY [place] [address] 11/14/2023 10:00 AM EDT Infusion Hematology Oncology at [address] [phone] documented as of this encounter Visit Diagnoses Not on filedocumented in this encounter Care Teams Engraver Automatic Relationship Specialty Start Date End Date Frederick Meade MD [address] [place] [address] PCP - General Family Medicine 11/29/17 documented as of this encounter
--- OUTSIDE RECORDS SUMMARY | 2023-10-17 03:28 | XMS_ITS | Encounter Summary ---
Author Organization [facility] [place] [address] Care Team Providers Care Structural Drafter Name Role Phone Frederick Meade MD Primary Care Provider [phone] [phone] Encounter Details Date Type Department Care Team [...] EDT TH Visit (TeleHealth) Hematology/Oncology at [address] [phone] Adrianne Ramon MD [facility] [place] [address] Yael Merlos APRN [facility] [place] [address] 10/17/2023 1:30 PM EDT Infusion Hematology Oncology at [address] [phone] 10/26/2023 9:00 AM EDT Office Visit Hematology [place] [address] Reynold Proctor MD [facility] [place] [address] 11/14/2023 9:30 AM EDT Office Visit Hematology/Oncology at [address] [phone] Adrianne Ramon MD [facility] [place] [address] Yael Merlos APRN [facility] [place] [address] 11/14/2023 10:00 AM EDT Infusion Hematology Oncology at [address] [phone] documented as of this encounter Visit Diagnoses Not on filedocumented in this encounter Care Teams Structural Drafter Relationship Specialty Start Date End Date Frederick Meade MD [address] [place], [place] [id number] PCP - General Family Medicine 11/29/17 documented as of this encounter
--- OUTSIDE RECORDS SUMMARY | 2023-10-17 03:28 | XMS_ITS | Encounter Summary ---
Author Organization [facility] [place] [address] Care Team Providers Care Concrete Conveyor Operator Name Role Phone Frederick Meade MD Primary Care Provider +1 -[phone] Reason for Visit * Reason Comments Chemotherapy [...] TC CYCLOPHOSPHAMIDE, 100MG (CYTOXAN) Adrianne Ramon MD [facility] DR HEMATOLOGY [place] [address] [facility] Infusion [address] [place] [address] Referral ID Status Reason Start Date Expiration Date Visits Re quested Visits Authorized [id number] Closed 10/11/2022 10/11/2023 1 100 Encounter Details Date Type Department Care Team (Late st Contact Info) Description 10/18/2022 9:00 AM EDT Infusion Hematology Oncology at [address] [phone] Diffuse large B-cell lymphoma of [...] EDT TH Visit (TeleHealth) Hematology/Oncology at [address] [phone] Adrianne Ramon MD [facility] HEMATOLOGY [place] [address] Yael Merlos APRN [facility] HEMATOLOGY [place] [address] 10/17/2023 1:30 PM EDT Infusion Hematology Oncology at [address] [phone] 10/26/2023 9:00 AM EDT Office Visit Hematology [place] [address] Reynold Proctor MD [facility] [place] [address] 11/14/2023 9:30 AM EDT Office Visit Hematology/Oncology at [address] [phone] Adrianne Ramon MD [facility] HEMATOLOGY [place] [address] Yael Merlos APRN [facility] HEMATOLOGY [place] [address] 11/14/2023 10:00 AM EDT Infusion Hematology Oncology at [address] [phone] documented as of this [...] 2 minutes is a recommendation from the concrete saw operator. Administer prior to chemotherapy., Routine Given 10/18/2022 [...] Job Aid: Adult Flushing & Catheter Care (1345) job aid for additional information regarding guidelines [...] mL/hr documented in this encounter Care Teams Concrete Conveyor Operator Relationship Specialty Start Date End Date Frederick Meade MD [address] [place] [address] PCP - General Family Medicine 11/29/17 documented as of this encounter
--- OUTSIDE RECORDS SUMMARY | 2023-10-17 03:28 | XMS_ITS | Encounter Summary ---
[place] [address] Care Team Providers Care Post Tensioning Ironworker Helper Name Role Phone Frederick Meade MD Primary Care Provider +1 -[phone] Encounter Details Date Type Department Care Team (Late st Contact Info) Description 10/11/2022 Notes [place] [address] James Champion, [facility] [place] [address] Social History Tobacco Use Types Packs/Day Years [...] access for chemotherapy. IR History: None at [facility]. Antiplatelets: Aspirin 81 mg daily. Anticoagulants: None. 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 Tobacco Use Smoking status: Former Packs/day: [...] EDT TH Visit (TeleHealth) Hematology/Oncology at [address] [phone] Adrianne Ramon MD [facility] [place] [address] Yael Merlos APRN [facility] HEMATOLOGY [place] [address] 10/17/2023 1:30 PM EDT Infusion Hematology Oncology at [address] [phone] 10/26/2023 9:00 AM EDT Office Visit Hematology [place] [address] Reynold Proctor MD [facility] [place] [address] 11/14/2023 9:30 AM EDT Office Visit Hematology/Oncology at [address] [phone] Adrianne Ramon MD [facility] [place] [address] Yael Merlos FACULTY ADMINISTRATOR [facility] [place] [address] 11/14/2023 10:00 AM EDT Infusion Hematology Oncology at [address] [phone] documented as of this encounter Visit Diagnoses Not on filedocumented in this encounter Care Teams Post Tensioning Ironworker Helper Relationship Specialty Start Date End Date Frederick Meade MD [address] [place] [address] [address] [place] [address] PCP - General Family Medicine 11/29/17 documented as of this encounter
--- OUTSIDE RECORDS SUMMARY | 2023-10-17 03:28 | XMS_ITS | Encounter Summary ---
[place] [address] Care Team Providers Care Sales And Service Agent Name Role Phone Frederick Meade MD Primary Care Provider [phone] [phone] Encounter Details Date Type Department Care Team (Late st Contact Info) Description 10/25/2022 Telephone Hematology [place] [phone] Davey Magdaleno MD [facility] HEMATOLOGY/[place] [address] Social History Tobacco Use Types Packs/Day Years [...] a call from Dr. Mcbride (Hospitalist) at [facility] this morning in regards to Cheo. 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 He presented to [facility] with an oral temp [...] saw Dr. Ramon, on 10/[address] [facility] in [facility] on 10/18 with neupogen. I am told [...] EDT TH Visit (TeleHealth) Hematology/Oncology at [address] [phone] Adrianne Ramon MD [facility] DR HEMATOLOGY [place] [address] Yael Merlos, [facility] HEMATOLOGY [place] [address] 10/17/2023 1:30 PM EDT Infusion Hematology Oncology at [address] [phone] 10/26/2023 9:00 AM EDT Office Visit Hematology [place] [address] Reynold Proctor MD [facility] [address] 11/14/2023 9:30 AM EDT Office Visit Hematology/Oncology at [address] [phone] Adrianne Ramon MD [facility] DR HEMATOLOGY [place] [address] Yael Merlos APRN [facility] HEMATOLOGY [place] [address] 11/14/2023 10:00 AM EDT Infusion Hematology Oncology at [address] [phone] documented as of this encounter Visit Diagnoses Not on filedocumented in this encounter Care Teams Sales And Service Agent Relationship Specialty Start Date End Date Frederick Meade MD [address] [place], [place] [address] PCP - General Family Medicine 11/29/17 documented as of this encounter
--- OUTSIDE RECORDS SUMMARY | 2023-10-17 03:28 | XMS_ITS | Encounter Summary ---
Author Organization [facility] [place] [address] Care Team Providers Care Sash Maker Name Role Phone Frederick Meade MD Primary Care Provider [phone] [phone] Encounter Details Date Type Department Care Team (Late st Contact Info) Description 10/11/2022 External [place] [phone] Provider, Scanning Social History Tobacco Use Types [...] EDT TH Visit (TeleHealth) Hematology/Oncology at [address] [address] Adrianne Ramon MD [facility] [place] [address] Yael Merlos APRN [facility] [place] [address] 10/17/2023 1:30 PM EDT Infusion Hematology Oncology at [address] [address] 10/26/2023 9:00 AM EDT Office Visit Hematology [place] [address] Reynold Proctor MD [facility] [place] [address] 11/14/2023 9:30 AM EDT Office Visit Hematology/Oncology at [address] [phone] Adrianne Ramon MD [facility] [place] [address] Yael Merlos APRN [facility] DR [place] [address] 11/14/2023 10:00 AM EDT Infusion Hematology Oncology at [address] [phone] documented as of this encounter Procedures Procedure Name Priority Date/Time Associated Diagnosis Comments SURGICAL PATHOLOGY SCAN Routine 10/11/2022 documented in this encounter Results * Scan Doc: Surgical Pathology (10/11/2022) Historical Provider MD LOPEZ MGR SCAN EX T ORDR/RSLT documented in this encounter Visit Diagnoses Not on filedocumented in this encounter Care Teams Sash Maker Relationship Specialty Start Date End Date Frederick Meade MD [address] [place] [address] PCP - General Family Medicine 11/29/17 documented as of this encounter
--- OUTSIDE RECORDS SUMMARY | 2023-10-17 03:28 | XMS_ITS | Encounter Summary ---
[place] [address] Care Team Providers Care Roller Engraver Name Role Phone Frederick Meade MD Primary Care Provider [phone] [phone] Reason for Referral * Diagnostic Test (Routine) - Closed Specialty Diagnoses / Procedures Referred By Contac t Referred To Contact Radiology Diagnoses Diffuse large B-cell lymphoma of lymph nodes of multiple regions Procedures IR [facility] Adrianne Nino MD [facility] [address] [place] [address] [facility] [place] [address] Referral ID Status Reason Start Date Expiration Date V isits Requested Visits Authorized [id number] Closed Specialty Service Requested 10/11/2022 04/13/2024 1 1 Reason for Visit * Diagnostic Test (Routine) - Closed Specialty Diagnoses / Procedures Referred By Contac t Referred To Contact Radiology Diagnoses Diffuse large B-cell lymphoma of lymph nodes of multiple regions Procedures IR [facility] Adrianne Nino MD [facility] [address] [place] [address] [facility] [place] [address] Referral ID Status Reason Start Date Expiration Date V isits Requested Visits Authorized [id number] Closed Specialty Service Requested 10/11/2022 04/13/2024 1 1 Encounter Details Date Type Department Care Team (Late st Contact Info) Description 10/17/2022 7:32 AM EDT - 10/17/2022 11:15 AM EDT Hospital Encounter Radiology at [facility] [place] [address] Adrianne Ramon MD [facility] [address] [place] [address] Diffuse large B-cell lymphoma of lymph nodes [...] provided with an ID card stating the budget accountant and type of port you have. Please carry this with you in a safe place. Bandage: There is a sterile dressing over the port site consisting of small gauze with a clear dressing (Tegaderm or [id number] ). This dressing should be left in place for 48 hours. If the clear dressing becomes loose you should place tape over the edges to secure it in place. Note: If you have steri-strips beneath your dressing, simply allow them to fall off. Do not peel them off. There may be [place]en (skin glue) also, allow this to flake [...] is during regular office hours, please call [phone]. If it is after regular office hours, or on weekends or holidays, please call [phone] and ask to speak to the Wheel Mill Operator management consultant for Interventional Radiology. XXX You [...] (home) Telephone Information: PCP: Frederick Meade MD [phone] Date/Time of call: October 18, 2022/9:37 AM [...] of : 1950 AGE: 72 y.o. Address: [address] [place] [phone] (home) Mobile: Telephone Information: Referring Provider: Adrianne [...] Questions Answers Where will study be performed? [facility] Radiology [120] Prefered insertion location: [...] reviewed: Yes Higinio Ramsey MD PGY-3 Pager #[phone] Department of Radiology [facility] 10/17/2022 Source Note - James Champion [...] access for chemotherapy. IR History: [place] [facility] Antiplatelets: Aspirin 81 mg daily. 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 Tobacco Use Smoking status: Former Packs/day: 1.00 Types: Cigarettes Quit date: 1985 Years since quittin.6 Smokeless tobacco: Former Quit date: 02/19/1986 Tobacco comments: started smoking in [employer] Vaping Use Vaping Use: Never used Substance [...] EDT TH Visit (TeleHealth) Hematology/Oncology at [address] [phone] Adrianne Ramon MD [facility] [address] [place] [address] Yael Merlos APRN [facility] [place] [address] 10/17/2023 1:30 PM EDT Infusion Hematology Oncology at [address] [phone] 10/26/2023 9:00 AM EDT Office Visit Hematology [place] [address] Reynold Proctor MD [facility] [place] [address] 11/14/2023 9:30 AM EDT Office Visit Hematology/Oncology at [address] [address] Adrianne Ramon MD [facility] DR HEMATOLOGY AND [place] [address] Yael Merlos APRN [facility] [place] [address] 11/14/2023 10:00 AM EDT Infusion Hematology Oncology at [address] [phone] documented as of this encounter Procedures Procedure [...] implant Indication: Diffuse large B-cell lymphoma, durable alf central venous access for chemotherapy Procedure summary: [...] Glucose, POC 101 65 - 199 mg/dL [facility] Comment: Supplemental ranges: <140 mg/dL before meals <180 mg/dL all other times of the day Blood 10/17/2022 8:29 AM EDT 10/17/2022 8:29 AM EDT Adrianne Ramon MD POINT OF C[place] [address] documented in this encounter Visit Diagnoses Diagnosis [...] mL/hr documented in this encounter Care Teams Roller Engraver Relationship Specialty Start Date End Date Frederick Meade MD [address] [place] [address] PCP - General Family Medicine 11/29/17 documented as of this encounter
--- OUTSIDE RECORDS SUMMARY | 2023-10-17 03:28 | XMS_ITS | Encounter Summary ---
Author Organization [facility] [place] [address] Care Team Providers Care Equipment Monitor Phototypesetting Name Role Phone Frederick Meade MD Primary Care Provider [phone] Reason for Visit * Diagnostic Test (Routine) - Closed Specialty Diagnoses / Procedures Referred By Contac t Referred To Contact Radiology Diagnoses Non-Hodgkin lymphoma of lymph nodes of multiple regions, unspecified non-Hodgkin lymphoma type Diffuse large B-cell lymphoma of lymph nodes of multiple regions Procedures NM PET CT Standard Plus Extremities and Head Adrianne Ramon MD [facility] [address] [place] [address] [place] [address] Referral ID Status Reason Start Date Expiration Date V isits Requested Visits Authorized [id number] Closed Specialty Service Requested 10/10/2022 04/12/2024 1 2 Encounter Details Date Type Department Care Team (Late st Contact Info) Description 10/12/2022 10:26 AM EDT - 10/12/2022 11:59 PM EDT Hospital Encounter [place] [address] Adrianne Ramon MD [facility] [place] [address] Discharge Disposition: Home Social History [...] EDT TH Visit (TeleHealth) Hematology/Oncology at [address] [address] Adrianne Ramon MD [facility] [place] [address] Yael Merlos APRN [facility] [place] [address] 10/17/2023 1:30 PM EDT Infusion Hematology Oncology at [address] [address] 10/26/2023 9:00 AM EDT Office Visit Hematology [place] [address] Reynold Proctor MD [facility] [place] [address] 11/14/2023 9:30 AM EDT Office Visit Hematology/Oncology at [address] [address] Adrianne Ramon MD [facility] [place] [address] Yael Merlos APRN [facility] [place] [address] 11/14/2023 10:00 AM EDT Infusion Hematology Oncology at [address] [address] documented as of this encounter Procedures Procedure [...] Glucose, POC 113 65 - 199 mg/dL [facility] Comment: Supplemental ranges: <140 mg/dL before meals <180 mg/dL all other times of the day Blood 10/12/2022 11:0 0 AM EDT 10/12/2022 11:00 AM EDT Adrianne Ramon MD POINT OF CARE TE ST ORDERABLES [facility] [place] [address] documented in this encounter Visit Diagnoses Not on filedocumented in this encounter Care Teams Equipment Monitor Phototypesetting Relationship Specialty Start Date End Date Frederick Meade MD [address] [place] [address] PCP - General Family Medicine 11/29/17 documented as of this encounter
--- OUTSIDE RECORDS SUMMARY | 2023-10-17 03:28 | XMS_ITS | Encounter Summary ---
Author Organization [facility] Address [facility] [place] [address] Care Team Providers Care Home Service Advisor Name Role Phone Frederick Meade MD Primary Care Provider [phone] [phone] Reason for Visit * Reason Onset Date Comments Follow-up 10/26/2022 Encounter Details Date Type Department Care Team (Late st Contact Info) Description 10/26/2022 Telephone Hematology/Oncology at [address] [address] Tania Rosales, RN Follow-up Social [...] than yesterday. He is still admitted at [facility] and relays that the care plan is to keep him admitted until his WBC go up. Per the [facility] progress note, the goal is for [...] EDT TH Visit (TeleHealth) Hematology/Oncology at [address] [address] Adrianne Ramon MD [facility] [place] [address] Yael Merlos APRN [facility] [place] [address] 10/17/2023 1:30 PM EDT Infusion Hematology Oncology at [address] [address] 10/26/2023 9:00 AM EDT Office Visit Hematology [place] [address] Reynold Proctor MD [facility] [place] [address] 11/14/2023 9:30 AM EDT Office Visit Hematology/Oncology at [address] [address] Adrianne Ramon MD [facility] DR [place] [address] Yael Merlos APRN [facility] [place] [address] 11/14/2023 10:00 AM EDT Infusion Hematology Oncology at [address] [phone] documented as of this encounter Visit Diagnoses Not on filedocumented in this encounter Care Teams Home Service Advisor Relationship Specialty Start Date End Date Frederick Meade MD [address] [place] [address] PCP - General Family Medicine 11/29/17 documented as of this encounter"
--- OUTSIDE RECORDS SUMMARY | 2023-10-17 03:28 | XMS_ITS | Encounter Summary ---
Author Organization [facility] [place] [address] Care Team Providers Care Drophammer Operator Name Role Phone Frederick Meade MD Primary Care Provider [phone] Reason for Referral * Diagnostic Test (Routine) [...] [facility] DR [place] [address] [place] [address] Referral ID Status Reason Start Date Expiration Date V isits Requested Visits Authorized [id number] Closed Specialty Service Requested 10/10/2022 04/12/2024 1 [...] [facility] [address] [place] [address] [facility] [place] [address] Referral ID Status Reason Start Date Expiration Date V isits Requested Visits Authorized [id number] Closed Specialty Service Requested 10/10/2022 04/12/2024 1 2 Encounter Details Date Type Department Care Team (Late st Contact Info) Description 10/12/2022 10:26 AM EDT - 10/12/2022 11:59 PM EDT Hospital Encounter [place] [phone] Adrianne Ramon MD [facility] DR [place] [address] Non-Hodgkin lymphoma of lymph nodes [...] EDT TH Visit (TeleHealth) Hematology/Oncology at [address] [address] Adrianne Ramon MD [facility] [place] [address] Yael Merlos, [facility] [place] [address] 10/17/2023 1:30 PM EDT Infusion Hematology Oncology at [address] [phone] 10/26/2023 9:00 AM EDT Office Visit Hematology [place] [address] Reynold Proctor MD [facility] [place] [address] 11/14/2023 9:30 AM EDT Office Visit Hematology/Oncology at [address] [phone] Adrianne Ramon MD [facility] [place] [address] Yael Merlos [facility] [place] [address] 11/14/2023 10:00 AM EDT Infusion Hematology Oncology at [address] [phone] documented as of this encounter Procedures Procedure [...] who have questions please contact the health patient care provider that requested your imaging first. ? Narrative 10/12/2022 3:23 PM EDT EXAMINATION: NM PET CT STANDARD PLUS EXTREMITIES AND HEAD CLINICAL HISTORY: Non-Hodgkin lymphoma, staging new large B cell lymphoma - involving oropharynx/ cervical. ??staging. TECHNIQUE: Procedure: Following IV injection of 16-edevht-4-deoxyglucose (FDG) a standard uptake of approximately 60 [...] staging. TECHNIQUE: Procedure: Following IV injection of 19-tttbfu-3-deoxyglucose(FDG) a standard uptake of approximately 60 minutes, [...] patients who have questions please contactthe health patient care provider that requested your imaging first. Adrianne Ramon [...] mCi documented in this encounter Care Teams Drophammer Operator Relationship Specialty Start Date End Date Frederick Meade MD [address] [place] [address] [address] [facility] [address] [place] [address] PCP - General Family Medicine 11/29/17 documented as of this encounter
--- OUTSIDE RECORDS SUMMARY | 2023-10-17 03:28 | XMS_ITS | Encounter Summary ---
Author Organization [facility] [place] [address] Care Team Providers Care Compound Coating Machine Offbearer Name Role Phone Frederick Meade MD Primary Care Provider [phone] Encounter Details Date Type Department Care Team [...] EDT TH Visit (TeleHealth) Hematology/Oncology at [address] [phone] Adrianne Ramon MD [facility] [place] [address] Yael Merlos APRN [facility] [place] [address] 10/17/2023 1:30 PM EDT Infusion Hematology Oncology at [address] [phone] 10/26/2023 9:00 AM EDT Office Visit Hematology [place] [address] Reynold Proctor MD [facility] [place] [address] 11/14/2023 9:30 AM EDT Office Visit Hematology/Oncology at [address] [phone] Adrianne Ramon MD [facility] [place] [address] Yael Merlos APRN [facility] [place] [address] 11/14/2023 10:00 AM EDT Infusion Hematology Oncology at [address] [phone] documented as of this encounter Visit Diagnoses Not on filedocumented in this encounter Care Teams Compound Coating Machine Offbearer Relationship Specialty Start Date End Date Frederick Meade MD [address] [place], [place] [id number] PCP - General Family Medicine 11/29/17 documented as of this encounter
--- OUTSIDE RECORDS SUMMARY | 2023-10-17 03:28 | XMS_ITS | Encounter Summary ---
Author Organization [facility] Address [facility] [place] [address] Care Team Providers Care Paddock Judge Name Role Phone Frederick Meade MD Primary Care Provider [phone] Reason for Visit * Consultation (Urgent) - Closed Specialty Diagnoses / Procedures Referred By Contac t Referred To Contact Cardiology Diagnoses Diffuse large B-cell lymphoma of lymph nodes of multiple regions CARD-ONC Pt w/o cardiac hx. New lymphoma. Needs anthracycline. Echo w/ EF 49% & mild global hypokinesis. Please eval for ongoing anthracycline safety. Adrianne Ramon MD [facility] HEMATOLOGY [place] [address] Chalo Barbosa MD [facility] [place] [address] Referral ID Status Reason Start Date Expiration Date V isits Requested Visits Authorized [id number] Closed Consult, Test & Treat 10/12/2022 10/12/2023 1 1 Encounter Details Date Type Department Care Team (Latest Contact Info) Description 11/06/2022 2:10 PM EDT Office Visit Cardiology at [place] [phone] Chalo Barbosa MD [facility] [place] [address] Abnormal echocardiogram Social History Tobacco Use Types [...] the original note were not included. [facility] [place], [place] [address] CARDIO-ONCOLOGY CONSULTATION Cheo Santos Teressagisell Primary Care [...] Office Visit from 11/06/2022 in Cardiology at [facility] Office Visit from 10/18/2022 in Hematology/Oncology at [facility] Weight 93 kg (205 lb) 1 [...] EDT TH Visit (TeleHealth) Hematology/Oncology at [address] [phone] Adrianne Ramon MD [facility] HEMATOLOGY [place] [address] Yael Merlos APRN [facility] HEMATOLOGY [place] [address] 10/17/2023 1:30 PM EDT Infusion Hematology Oncology at [address] [phone] 10/26/2023 9:00 AM EDT Office Visit Hematology [place] [address] Reynold Proctor MD [facility] [place] [address] 11/14/2023 9:30 AM EDT Office Visit Hematology/Oncology at [address] [phone] Adrianne Ramon MD [facility] HEMATOLOGY [place] [address] Yael Merlos APRN [facility] HEMATOLOGY [place] [address] 11/14/2023 10:00 AM EDT Infusion Hematology Oncology at [address] [phone] Scheduled Referrals Name Type Priority Associated Diagnoses Order Schedule Referral to Cardiology Outpatient Referral Urgent Diffuse large B-cell lymphoma of lymph nodes of multiple regions Ordered: 10/12/2022 documented as of this encounter Visit Diagnoses Diagnosis Abnormal echocardiogram Nonspecific (abnormal) findings on radiological and other examination of other intrathoracic organs documented in this encounter Care Teams Paddock Judge Relationship Specialty Start Date End Date Frederick Meade MD [address] [place] [address] PCP - General Family Medicine 11/29/17 documented as of this encounter
--- OUTSIDE RECORDS SUMMARY | 2023-10-17 03:28 | XMS_ITS | Encounter Summary ---
Author Organization [facility] [place] [address] Care Team Providers Care Rubber Goods Inspector Tester Name Role Phone Frederick Meade MD Primary Care Provider [phone] Reason for Visit * Treatment/Therapy Plan Authorization [...] 100MG (CYTOXAN) Adrianne Ramon MD [facility] [address] [place] [address] [facility] [address] [place] [address] Referral ID Status Reason Start Date Expiration Date Visits Re quested Visits Authorized [id number] Closed 10/11/2022 10/11/2023 1 100 Encounter Details Date Type Department Care Team (Latest Contact Info) Description 10/17/2022 11:16 AM EDT - 10/17/2022 11:59 PM EDT Hospital Encounter Hematology [place] [address] Diffuse large B-cell lymphoma of [...] flushed, left accessed for tomorrow infusion at [facility] documented in this encounter Plan of Treatment Upcoming Encounters Date Type Department Care Team (Late st Contact Info) Description 10/17/2023 1:00 PM EDT TH Visit (TeleHealth) Hematology/Oncology at [address] [phone] Adrianne Ramon MD [facility] HEMATOLOGY [place] [address] Yael Merlos APRN [facility] [place] [address] 10/17/2023 1:30 PM EDT Infusion Hematology Oncology at [address] [phone] 10/26/2023 9:00 AM EDT Office Visit Hematology [place] [address] Reynold Proctor MD [facility] [place] [address] 11/14/2023 9:30 AM EDT Office Visit Hematology/Oncology at [address] [phone] Adrianne Ramon MD [facility] [place] [address] Yael Merlos APRN [facility] [place] [address] 11/14/2023 10:00 AM EDT Infusion Hematology Oncology at [address] [phone] Scheduled Orders Name Type Priority Associated Diagnoses [...] of multiple regions HIV SCREEN, 4TH GENERATION ([facility]/CGP/APD/NLH) STAT 10/17/2022 11:45 AM EDT Diffuse large [...] Peripheral Blood (10/17/2022 11:45 AM EDT) Pathologist [facility] Plat estimate Normal [facility] RBC Morphology Abnormal [facility] Ovalocytes 1-5 /HPF [facility] Tear Cell 1-5 /HPF [facility] Blood 10/17/2022 11:4 5 AM EDT 10/17/2022 12:08 PM EDT Narrative Resulting Agency Comment Spec In Lab Adrianne Ramon MD HEMATOLOGY ORDER DUONG [facility] [place] [address] * (ABNORMAL) Differential, Automated (10/17/2022 11:45 AM EDT) Neutrophil % 68.0 % [facility] Neutrophil Absolute 7.17(H) 1.70 - 6.10 x10(3)/mc L [facility] Lymph % 13.6 % [facility] Lymphocytes Abs 1.4 0.9 - 3.2 x10(3)/mc L [facility] Monocyte % 14.8 % [facility] Monocyte Abs 1.6(H) 0.3 - 0.9 x10(3)/ L [facility] Eos % 2.8 % [facility] Eosinophils Abs 0.3 0.0 - 0.4 x10(3)/[facility] Basophil % 0.3 % [facility] Baso Absolute 0.0 0.0 - 0.1 x10(3)/ L [facility] Immature Gran % 0.50 % [facility] Comment: Immature granulocytes(IG's)percentage and absolute count will include metamyelocytes, myelocytes, and promyelocytes. Blood smears from CBCs yielding IG's will be scanned manually for concordance. If this scan disagrees with the automated IG or if promyelocytes are noted, a manual differential will be performed. Immature Gran Absolute 0.05(H) 0.00 - 0.04 x10(3)/ L [facility] Blood 10/17/2022 11:4 5 AM EDT 10/17/2022 12:08 PM EDT Narrative Resulting Agency Comment Spec In Lab Adrianne Ramon MD HEMATOLOGY ORDER DUONG [facility] [place] [address] * (ABNORMAL) Hemogram (10/17/2022 11:45 AM EDT) White Blood Cell 10.6(H) 4.0 - 9.5 x10(3)/ L [facility] Red Blood Cell 3.68(L) 4.58 - 5.54 x10(6)/ L [facility] Hemoglobin 11.3(L) 13.7 - 16.5 g/dL [facility] Hematocrit 33.8(L) 40.5 - 48.5 % [facility] Mean Cell Volume 91.8 82.9 - 93.1 fL [facility] Mean Cell Hemoglobin 30.7 27.5 - 32.1 pg [facility] Mean Cell Hemoglobin Concentration 33.4 32.0 - 35.7 g/dL [facility] Platelet 261 145 - 357 x10(3)/mc L [facility] RDW Standard Deviation 49.5(H) 36.0 - 45.0 fL [facility] RDW coefficient of variation 14.6(H) 11.4 - 13.8 % [facility] Mean Platelet Volume 9.4 7.6 - 12.9 fL [facility] NRBC% auto 0.0 % [facility] NRBC Absolute 0.000 0.000 - 0.000 x10(3)/mc L [facility] Blood 10/17/2022 11:4 5 AM EDT 10/17/2022 12:08 PM EDT Narrative Resulting Agency Comment Spec In Lab Adrianne Ramon MD HEMATOLOGY ORDER DUONG Performing Organization Address City/[facility]/ZIP Co de Phone Number [facility] [place] [place] [address] * Hepatitis C Antibody (10/17/2022 11:45 AM EDT) Hepatitis C Antibody Negative Negative [facility] Blood 10/17/2022 11:4 5 AM EDT 10/17/2022 12:08 PM EDT Narrative Resulting Agency Comment Spec In Lab Adrianne Ramon MD CHEMISTRY ORDERA BLES Performing Organization Address City/[facility] Co de Phone Number [facility] [place] [address] * HIV Screen, 4th Generation (MC/CGP/APD/NLH) (10/17/2022 11:45 AM EDT) HIV Ab/Ag Screen Negative Negative [facility] Comment: This 4th Generation HIV test [...] of HIV Infection [facility] Blood 10/17/2022 11:4 5 AM EDT 10/17/2022 12:08 PM EDT Narrative Resulting Agency Comment Spec In Lab Adrianne Ramon MD CHEMISTRY ORDERA BLES [facility] [place] [address] * Hepatitis B Surface Antibody (10/17/2022 11:45 AM EDT) Hepatitis B Surface Antibody, Quantitative <3.5 IU/L [facility] Comment: HepB Surface Ab Quant: Unvaccinated: < 8.5 IU/L Vaccinated: >= 11.5 IU/L Hepatitis B Surface Antibody Negative [facility] Comment: Patient is presumed to be not vaccinated or immune to HBV infection. Expected Results: Vaccinated: Positive Unvaccinated: Negative Blood 10/17/2022 11:4 5 AM EDT 10/17/2022 12:08 PM EDT Narrative Resulting Agency Comment Spec In Lab Adrianne Ramon MD CHEMISTRY ORDERA BLES Performing Organization Address City/[facility]/ZIP Co de Phone Number [facility] [place] [address] * Hepatitis B Surface Antigen (10/17/2022 11:45 AM EDT) Hepatitis B Surface Antigen Negative Negative [facility] Blood 10/17/2022 11:4 5 AM EDT 10/17/2022 12:08 PM EDT Narrative Resulting Agency Comment Spec In Lab Adrianne Ramon MD CHEMISTRY ORDERA BLES [facility] [place] [address] * Hepatitis B Core Antibody, Total (10/17/2022 11:45 AM EDT) Hepatitis B Core Antibody Negative Negative [facility] Blood 10/17/2022 11:4 5 AM EDT 10/17/2022 12:08 PM EDT Narrative Resulting Agency Comment Spec In Lab Adrianne Ramon MD CHEMISTRY ORDERA BLES Performing Organization Address City/[facility]/ZIP Co de Phone Number [facility] [place] [address] * Uric acid (10/17/2022 11:45 AM EDT) Uric Acid 5.3 3.5 - 8.5 mg/dL [facility] Blood 10/17/2022 11:4 5 AM EDT 10/17/2022 12:08 PM EDT Narrative Resulting Agency Comment Spec In Lab Adrianne Ramon MD CHEMISTRY ORDERA BLES Performing Organization Address City/[facility]/ZIP Co de Phone Number [facility] [place] [address] * Phosphorus (10/17/2022 11:45 AM EDT) Phosphorus 3.2 2.5 - 4.5 mg/dL [facility] Blood 10/17/2022 11:4 5 AM EDT 10/17/2022 12:08 PM EDT Narrative Resulting Agency Comment Spec In Lab Adrianne Ramon MD CHEMISTRY ORDERA BLES Performing Organization Address City/[facility]/ZIP Co de Phone Number [facility] [place] [address] * Magnesium (10/17/2022 11:45 AM EDT) Magnesium 0.78 0.69 - 1.07 mmol/L [facility] Blood 10/17/2022 11:4 5 AM EDT 10/17/2022 12:08 PM EDT Narrative Resulting Agency Comment Spec In Lab Adrianne Ramon MD CHEMISTRY ORDERA BLES Performing Organization Address City/[facility]/ZIP Co de Phone Number [facility] [place] [address] * (ABNORMAL) Lactate Dehydrogenase (10/17/2022 11:45 AM EDT) Lactate Dehydrogenase 251(H) 110 - 220 unit/L [facility] Blood 10/17/2022 11:4 5 AM EDT 10/17/2022 12:08 PM EDT Narrative Resulting Agency Comment Spec In Lab Adrianne Ramon MD CHEMISTRY ORDERA BLES [facility] [place] [address] * Comprehensive metabolic panel (non-fasting) (10/17/2022 11:45 AM EDT) Glucose 110 65 - 199 mg/dL [facility] Comment:Diabetes: >=200 mg/d L plus symptoms Blood Urea Nitrogen 17 10 - 20 mg/dL [facility] Creatinine 1.07 0.80 - 1.50 mg/dL [facility] Sodium 139 135 - 145 mmol/L [facility] Potassium 3.6 3.5 - 5.0 mmol/L [facility] Comment: Please note: ??Patients with WBC >100,000 may have falsely elevated Potassium levels. ??For accurate Potassium quantification in these patients send serum separator tube (gold top) for subsequent determinations. ??Contact the Clinical Chemistry Laboratory if there are any questions. Chloride 105 98 - 107 mmol/L [facility] Carbon Dioxide 23 22 - 31 mmol/L [facility] Anion Gap 11 5 - 15 mmol/L [facility] Calcium 8.9 8.5 - 10.5 mg/dL [facility] Protein, Total 6.2 6.1 - 8.0 g/dL [facility] Albumin 3.6 3.2 - 5.2 g/dL [facility] Aspartate Aminotransferase 14 0 - 39 unit/L [facility] Alanine Aminotransferase 27 0 - 55 unit/L [facility] Alkaline Phosphatase 103 40 - 130 unit/L [facility] Bilirubin, Total 0.4 0.2 - 1.3 mg/dL [facility] Est Glomerular Filtration Rate 73 >=60 mL/min/1. 73 m?? [facility] Comment: This patient's estimated GFR was [...] Lab Adrianne Ramon MD [place] [address] documented in this encounter Visit Diagnoses Diagnosis [...] Job Aid: Adult Flushing & Catheter Care (4012) job aid for additional information regarding guidelines [...] Job Aid: Adult Flushing & Catheter Care (4566) job aid for additional information regarding guidelines and administration., Routine Given 10/17/2022 12:11 PM EDT 20 mLs documented in this encounter Care Teams Rubber Goods Inspector Tester Relationship Specialty Start Date End Date Frederick Meade MD [address] [place] [address] PCP - General Family Medicine 11/29/17 documented as of this encounter
--- OUTSIDE RECORDS SUMMARY | 2023-10-17 03:28 | XMS_ITS | Encounter Summary ---
Author Organization [facility] [address] Care Team Providers Care Summer Child Caregiver Name Role Phone Frederick Meade MD Primary Care Provider [phone] Encounter Details Date Type Department Care Team (Latest Contact Info) Description 10/11/2022 3:11 PM EDT - 10/11/2022 11:59 PM EDT Hospital [place] [phone] Discharge Disposition: Home Social History Tobacco Use [...] EDT TH Visit (TeleHealth) Hematology/Oncology at [address] [phone] Adrianne Ramon MD [facility] HEMATOLOGY [place] [address] Yael Merlos, STATION DETECTIVE [facility] [place] [address] 10/17/2023 1:30 PM EDT Infusion Hematology Oncology at [address] [phone] 10/26/2023 9:00 AM EDT Office Visit [place]ematology [place] [address] Reynold Proctor MD [facility] [place] [address] 11/14/2023 9:30 AM EDT Office Visit Hematology/Oncology at [address] [phone] Adrianne Ramon MD [facility] [place] [address] Yael Merlos, STATION DETECTIVE [facility] [place] [address] 11/14/2023 10:00 AM EDT Infusion Hematology Oncology at [address] [phone] documented as of this encounter Procedures Procedure Name Priority Date/Time Associated Diagnosis Comments SURGICAL PATHOLOGY REPORT Routine 10/11/2022 3:13 PM EDT documented in this encounter Results * Surgical Pathology Report (10/11/2022 3:13 PM EDT) Final Diagnosis [id number] ? Location: OPW The signing pathologist has (i) examined the relevant preparation(s) for the specimen(s) and (ii) rendered or confirmed the diagnosis(es). . ?Surgical Pathology DIAGNOSIS CONSULTATION CASE ?? A. TONGUE, LEFT BASE (BIOPSY); [OSR# [id number], COLLECTED 10/05/2022, 12 SLIDES]: ?? 1. Diffuse large B-cell lymphoma, activated B-cell subtype (ABC-DLBCL) (see ?comment) ?? 2. Ki67 proliferation estimated at >95%, lymphoma coexpresses BCL2 and CMYC Electronically signed by: ?Ole Bowen MD Verified: ??10/12/2022 11:37 ??Hematopathologist Performed at: ??-[facility] Dept. of Pathology, [place] [address] Gradall Operator: Katherine Lopez MD, FCAP, ??CLIA Certificate: [id number] DISCUSSION Per report from the referring institution, ...Flow cytometry ([id number]) supports this interpretation. FISH studies were reportedly sent to [facility] to assess for MYC and BCL2 [...] but included for evaluation at [facility]. Appropriate controls are included for each case. . SPECIMEN(S) SUBMITTED CONSULTATION CASE A - 12 slide(s) labeled [id number], collection date 10/05/2022. [id number] CARBON COPY: [facility] Surgical Pathology Department [facility], 2nd Floor [address] [place], [place] ??[address] CLINICAL INFORMATION A 72 year old man. Per provided report, there is a clinical history of Massive LAD, history of prostate cancer; clinical diagnosis code: R59.1. SPECIMEN PROCESSING [facility] ([facility]) pathology slide(s) are reviewed. Refer to Diagnosis and Specimen Submitted for specific case information. For the full text of the [facility] report(s) please refer to the Chart Review Media tab in the electronic health record (eDH). 10/12/2022 11:37 AM EDT [facility] Consult Case 10/11/2022 3:13 PM EDT 10/11/2022 3:13 PM EDT Adrianne Ramon MD PATHOLOGY/CYTOLO GY ORDERABLES [facility] [place] [address] [facility] [place] [address] documented in this encounter Visit Diagnoses Not on filedocumented in this encounter Care Teams Summer Child Caregiver Relationship Specialty Start Date End Date Frederick Meade MD [address] [place], [place] [address]Y [facility] [address] [place] [address] PCP - General Family Medicine 11/29/17 documented as of this encounter
--- OUTSIDE RECORDS SUMMARY | 2023-10-17 03:28 | XMS_ITS | Encounter Summary ---
Author Organization [facility] [place] [address] Care Team Providers Care Surveillance Director Name Role Phone Frederick Meade MD Primary Care Provider [phone] Reason for Referral * Diagnostic Test (Routine) - Closed Specialty Diagnoses / Procedures Referred By Contac t Referred To Contact Cardiology Diagnoses Diffuse large B-cell lymphoma of lymph nodes of multiple regions Procedures Echocardiogram Transthoracic Adrianne Mera MD [facility] HEMATOLOGY [place] [address] [facility] [place] [address] Referral ID Status Reason Start Date Expiration Date V isits Requested Visits Authorized [id number] Closed Specialty Service Requested 10/11/2022 10/11/2023 1 1 Encounter Details Date Type Department Care Team (Late st Contact Info) Description 10/11/2022 Orders Only [place]ematology [place] [address] Adrianne Mera MD [facility] HEMATOLOGY [place] [address] Diffuse large B-cell lymphoma of lymph nodes [...] EDT TH Visit (TeleHealth) Hematology/Oncology at [address] [phone] Adrianne Mera MD [facility] HEMATOLOGY [place] [address] Yael MerlosKARLA [facility] HEMATOLOGY [place] [address] 10/17/2023 1:30 PM EDT Infusion Hematology Oncology at [address] [phone] 10/26/2023 9:00 AM EDT Office Visit [place]ematology [place] [address] Reynold Proctor MD [facility] [place] [address] 11/14/2023 9:30 AM EDT Office Visit Hematology/Oncology at [address] [phone] Adrianne Mera MD [facility] HEMATOLOGY [place] [address] Yael Merlos BRANCH SERVICE REPRESENTATIVE [facility] HEMATOLOGY [place] [address] 11/14/2023 10:00 AM EDT Infusion Hematology Oncology at [address] [phone] documented as of this encounter Results * ECHO COMPLETE (10/12/2022 10:00 AM EDT) Pathologist [facility] EF 49 HEARTLAB SYSTEM Anatomical Region Laterality Modality Cardiac Other 10/12/2022 9:33 AM EDT Narrative 10/12/2022 10:15 AM EDT ? Echocardiogram Report Name: CHEO MORFIN ? Study Date: 10/12/2022 09:33 AMBP: 164/86 mmHg ? Patient Location: [facility] : 1950 ? Height: 168 cm ? Account: [id number] Age: 72 yrs ? Weight: 97 kg Gender: Male ?BSA: 2.1 m2 Ordering Physician: ADRIANNE MERA Referring Physician: ADRIANNE MERA Performed By: Teresa Villafuerte RDCS Reason For Study: Diffuse large B-cell lymphoma of lymph nodes of multiple regions Exam Location: [facility]. Interpretation Summary Left ventricle is [...] findings. No comparison study is available. Procedure Complete-00351. Satisfactory quality. Left Ventricle Left ventricle is [...] AMBP: 164/86 mmHg Patient Location: [facility] : 1950 Height: 168 cm Account: [id number] Age: 72 yrs Weight: 97 kg Gender: Male BSA: 2.1 m2 Ordering Physician: ADRIANNE MERA Referring Physician: ADRIANNE MERA Performed By: Teresa Villafuerte RDCS Reason For Study: Diffuse large B-cell lymphoma of lymph nodes ofmultiple regions Exam Location: [facility]. Interpretation Summary Left ventricle is [...] findings. No comparison study is available. Procedure Complete-[id number]. Satisfactory quality. Left Ventricle Left ventricle is [...] mmHg . The estimated right atrial pressure [id number]. There is Grade I LV diastolic dysfunction [...] regions documented in this encounter Care Teams Surveillance Director Relationship Specialty Start Date End Date Frederick Meade MD [address] [place] [address] PCP - General Family Medicine 11/29/17 documented as of this encounter
--- OUTSIDE RECORDS SUMMARY | 2023-10-17 03:28 | XMS_ITS | Encounter Summary ---
[place] [address] Care Team Providers Care Sales And Service Engineer Name Role Phone Frederick Meade MD Primary Care Provider [phone] Reason for Referral * Diagnostic Test (Routine) - Closed Specialty Diagnoses / Procedures Referred By Contac t Referred To Contact Cardiology Diagnoses Diffuse large B-cell lymphoma of lymph nodes of multiple regions Procedures Echocardiogram Transthoracic Adrianne Mera MD [facility] [address] [place] [address] [facility] [place] [address] Referral ID Status Reason Start Date Expiration Date V isits Requested Visits Authorized [id number] Closed Specialty Service Requested 10/12/2022 10/12/2023 1 1 Reason for Visit * Diagnostic Test (Routine) - Closed Specialty Diagnoses / Procedures Referred By Contac t Referred To Contact Cardiology Diagnoses Diffuse large B-cell lymphoma of lymph nodes of multiple regions Procedures Echocardiogram Transthoracic Adrianne Mera MD [facility] [place]OLOG[place] [address] [facility] [place] [address] Referral ID Status Reason Start Date Expiration Date V isits Requested Visits Authorized [id number] Closed Specialty Service Requested 10/12/2022 10/12/2023 1 1 Encounter Details Date Type Department Care Team (Late st Contact Info) Description 11/06/2022 10:45 AM EDT - 11/06/2022 11:59 PM EDT Hospital Encounter Non-Invasive Cardiology Lab [address] [place] [address] Adrianne Mera MD [facility] [place] [address] Diffuse large B-cell lymphoma of lymph nodes [...] EDT TH Visit (TeleHealth) Hematology/Oncology at [address] [phone] Adrianne Mera MD [facility] [place] [address] Yael Merlos APRN [facility] [place] [address] 10/17/2023 1:30 PM EDT Infusion Hematology Oncology at [address] [phone] 10/26/2023 9:00 AM EDT Office Visit [place] [address] Reynold Proctor MD [facility] [place] [address] 11/14/2023 9:30 AM EDT Office Visit Hematology/Oncology at [address] [phone] Adrianne Mera MD [facility] [place] [address] Yael Merlos APRN [facility] [place] [address] 11/14/2023 10:00 AM EDT Infusion Hematology Oncology at [address] [phone] documented as of this encounter Procedures Procedure [...] 11:11 AMBP: 154/72 mmHg ? [facility] 1950 ? Height: 169 cm ? Account: [id number] Age: 72 yrs ? Weight: 93 kg Gender: Male ?BSA: 2.0 m2 Ordering Physician: ADRIANNE MERA Referring Physician: ADRIANNE MERA Performed By: SHAHANA Fernando Reason For Study: Lymphoma Exam Location: [facility]. Interpretation Summary LV systolic function appears to be low-normal. LV ejection fraction appears to be 52%. Global longitudinal strain is measured at -16.6 %. (GE). There are no segmental wall motion abnormalities. Normal right ventricle. No significant valvular abnormalities. Trivial pericardial effusion. On direct comparison to prior echo dated 10/12/2022, the LV function has slightly improved. Procedure Limited - [id number]. Left ventricular strain. Satisfactory quality. There is [...] Date: 311:11 AMBP: 154/72 mmHg Patient Location: 4A : 1950 Height: 169 cm Account: [id number] Age: 72 yrs Weight: 93 kg Gender: Male BSA: 2.0 m2 Ordering Physician: ADRIANNE MERA Referring Physician: ADRIANNE MERA Performed By: SHAHANA Fernando Reason For Study: Lymphoma Exam Location: [facility]. Interpretation Summary LV systolic function appears to be low-normal. LV ejection fractionappears to be 52%. Global longitudinal strain is measured at -16.6 %. (GE). There areno segmental wall motion abnormalities. Normal right ventricle. No significant valvular abnormalities. Trivial pericardial effusion. On direct comparison to prior echo dated 10/12/2022, the LV function hasslightly improved. Procedure Limited - [id number]. Left ventricular strain. Satisfactory quality. There isnormal [...] regions documented in this encounter Care Teams Sales And Service Engineer Relationship Specialty Start Date End Date Frederick Meade MD [address] [place] [address] PCP - General Family Medicine 11/29/17 documented as of this encounter
--- OUTSIDE RECORDS SUMMARY | 2023-10-17 03:28 | XMS_ITS | Encounter Summary ---
Author Organization [facility] [place] [address] Care Team Providers Care Air And Water Tester Name Role Phone Frederick Meade MD Primary Care Provider [phone] Encounter Details Date Type Department Care Team (Late st Contact Info) Description 11/08/2022 9:30 AM EDT Office Visit Hematology/Oncology at [address] [phone] Adrianne Mera MD [facility] [place] [address] Yael Merlos APRN [facility] [place] [address] Diffuse large B-cell lymphoma of lymph nodes [...] - 11/08/2022 9:30 [place] [address] HEMATOLOGY PATIENT EVALUATION Patient Active Problem List Diagnosis Diffuse large B-cell lymphoma of lymph nodes of multiple regions Anemia, iron deficiency Gout Malignant neoplasm of prostate HISTORY OF PRESENT ILLNESS: Patient prefers to be called: Ceho Support person(s) : Claritza son Cheo It [...] [facility] and when to [facility]. No beds so sent to [...] x7 days with nice response. Pathology from [facility] reports large B-cell lymphoma. Double expresser. FISH for translocations are pending. Tongue swelling. No wt loss. Eating and drinking OK. No fevers, infections, No NS. Pain in neck.Prednisone 60mg daily X 7 days. I feel great on prednisone last day of prednisone is today Took iron supplements per PCP - unclear cause. - last COLO at [facility] was 01/17/2012. Cheo returns today with [...] and needle of cervical LN. FISH from [place] No MYCrearrangement and no fusion of MYC [...] only 1 biologic. Son Cheo Freire. Enjoys [employer], [employer], race car, [employer]. Bowling [employer]. 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 Not a . ETOH: 1-3 beers per week Smoking: Quit 1985. Approximately 90-wani-gszt history Vaping or electronic cigarettes: denies Chewing [...] and BCL-2 protein (Double Expressor.) Flow cytometry ([id number]) supports this interpretation. FISH from [place] No MYC rearrangement and no fusion of MYC and IGH was observed, CD3 (SP7, [employer]) Background T-cells CD20 (L26, [place]) diffusely positive in Neoplastic B-cells PAX-5 (1EW, [employer]) diffusely positive in Neoplastic B-cells CD10 (SP67, [place]) Negative BCL-6 (G/191E/A8, [employer]) Positive MUM-1 (MUM1p, [employer]) Positive Myc (Y69, [employer]) Positive BCL-2 Oncoprotein (124, [place]) Positive Ki67 (MIB-1) (K2, [employer]) Greater than 95% of cells in cycle Cyclin D1(SP4-R, [employer]) Negative SAPPHIRE JOSE (JEE0283-O, [employer]) Negative. DIAGNOSTICS: 11/06/22 ECHO after C#1 [...] undergo investigation with ultrasound. CT CAP at [facility], report and images have been [...] chemotherapy. Furtherprednisone prescriptions will be given by GENERAL COUNSEL, during PTI chemotherapy teaching Suspected MEHNAZ - Hgb drop 3gm in last 2 weeks. Taking oral iron 2 tabs per day. 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 No COLO in last 10 years. [...] in 3 weeks. ECHO following C#3 at [facility] - week of Dec 04 or Dec 11 I discussed all of the above with the patient and all of his questions were answered. Support and counseling as appropriate. This note was written or modified using [employer] voice recognition software. The final note was screened for bungy jump master errors. Please excuse any remaining errors. Addendum staff message from Matthew Barbosa, Cardiology: Adrianne; Thanks for the message; will see if we can see him up in [place]. On review of his CT, he has [...] EDT TH Visit (TeleHealth) Hematology/Oncology at [address] [phone] Adrianne Mera MD [facility] [place] [address] Yael Merlos APRN [facility] [place] [address] 10/17/2023 1:30 PM EDT Infusion Hematology Oncology at [address] [phone] 10/26/2023 9:00 AM EDT Office Visit Hematology [place] [address] Reynold Proctor MD [facility] [place] [address] 11/14/2023 9:30 AM EDT Office Visit Hematology/Oncology at [address] [phone] Adrianne Mera MD [facility] [place] [address] Yael Merlos APRN [facility] [place] [address] 11/14/2023 10:00 AM EDT Infusion Hematology Oncology at [address] [phone] documented as of this encounter Procedures Procedure [...] medications documented in this encounter Care Teams Air And Water Tester Relationship Specialty Start Date End Date Frederick Meade MD [address] [place] [address] PCP - General Family Medicine 11/29/17 documented as of this encounter
--- OUTSIDE RECORDS SUMMARY | 2023-10-17 03:28 | XMS_ITS | Encounter Summary ---
[place] [address] Care Team Providers Care Accountant Systems Name Role Phone Frederick Meade MD Primary Care Provider [phone] Encounter Details Date Type Department Care Team (Late st Contact Info) Description 10/24/2022 Telephone Hematology [place] [phone] Castro Jimenez MD [facility] HEMATOLOGY/[place] [address] Social History Tobacco Use Types Packs/Day Years [...] Dr. Ramon, . office Castro Jimenez MD [facility] Hematology Oncology Fellow Page [phone] documented in this encounter Plan of Treatment Upcoming Encounters Date Type Department Care Team (Late st Contact Info) Description 10/17/2023 1:00 PM EDT TH Visit (TeleHealth) Hematology/Oncology at [address] [phone] Adrianne Ramon MD [facility] HEMATOLOGY [place] [address] Yael Merlos APRN [facility] HEMATOLOGY [place] [address] 10/17/2023 1:30 PM EDT Infusion Hematology Oncology at [address] [phone] 10/26/2023 9:00 AM EDT Office Visit Hematology [place] [address] Reynold Proctor MD [facility] [place] [address] 11/14/2023 9:30 AM EDT Office Visit Hematology/Oncology at [address] [phone] Adrianne Ramon MD [facility] HEMATOLOGY [place] [address] Yael Merlos APRN [facility] HEMATOLOGY [place] [address] 11/14/2023 10:00 AM EDT Infusion Hematology Oncology at [address] [phone] documented as of this encounter Visit Diagnoses Not on filedocumented in this encounter Care Teams Accountant Systems Relationship Specialty Start Date End Date Frederick Meade MD [address] [place] [address] PCP - General Family Medicine 11/29/17 documented as of this encounter
--- OUTSIDE RECORDS SUMMARY | 2023-10-17 03:28 | XMS_ITS | Encounter Summary ---
[place] [address] Care Team Providers Care Labor Specialist Name Role Phone Frederick Meade MD Primary Care Provider [phone] Reason for Referral * Diagnostic Test (Routine) - Closed Specialty Diagnoses / Procedures Referred By Contac t Referred To Contact Cardiology Diagnoses Diffuse large B-cell lymphoma of lymph nodes of multiple regions Procedures Echocardiogram Transthoracic Adrianne Mera MD [facility] DR [place] [address] [facility] [place] [address] Referral ID Status Reason Start Date Expiration Date V isits Requested Visits Authorized [id number] Closed Specialty Service Requested 10/11/2022 10/11/2023 1 1 Reason for Visit * Diagnostic Test (Routine) - Closed Specialty Diagnoses / Procedures Referred By Contac t Referred To Contact Cardiology Diagnoses Diffuse large B-cell lymphoma of lymph nodes of multiple regions Procedures Echocardiogram Transthoracic Adrianne Mera MD [facility] [place] [address] [facility] [place] [address] Referral ID Status Reason Start Date Expiration Date V isits Requested Visits Authorized [id number] Closed Specialty Service Requested 10/11/2022 10/11/2023 1 1 Encounter Details Date Type Department Care Team (Late st Contact Info) Description 10/12/2022 9:05 AM EDT - 10/12/2022 10:25 AM EDT Hospital Encounter Non-Invasive Cardiology [place] [address] Adrianne Mera MD [facility] [place] [address] Diffuse large B-cell lymphoma of lymph nodes [...] EDT TH Visit (TeleHealth) Hematology/Oncology at [address] [phone] Adrianne Mera MD [facility] DR [place] [address] Yael Merlos APRN [facility] [place] [address] 10/17/2023 1:30 PM EDT Infusion Hematology Oncology at [address] [phone] 10/26/2023 9:00 AM EDT Office Visit Hematology [place] [address] Reynold Proctor MD [facility] [place] [address] 11/14/2023 9:30 AM EDT Office Visit Hematology/Oncology at [address] [phone] Adrianne Mera MD [facility] [place] [address] Yael Merlos APRN [facility] [place] [address] 11/14/2023 10:00 AM EDT Infusion Hematology Oncology at [address] [phone] documented as of this encounter Procedures Procedure Name Priority Date/Time Associated Diagnosis Comments ECHO COMPLETE Routine 10/12/2022 10:00 AM EDT Diffuse large B-cell lymphoma of lymph nodes of multiple regions documented in this encounter Results * ECHO COMPLETE (10/12/2022 10:00 AM EDT) Pathologist [facility] [place] EF 49 HEARTLAB SYSTEM Anatomical Region Laterality Modality Cardiac Other 10/12/2022 9:33 AM EDT Narrative 10/12/2022 10:15 AM EDT ? Echocardiogram Report Name: DWINELL, CHEO L ? Study Date: 10/12/2022 09:33 AMBP: 164/86 mmHg ? Patient Location: [facility] : 1950 ? Height: 168 cm ? Account: [id number] Age: 72 yrs ? Weight: 97 kg Gender: Male ?BSA: 2.1 m2 Ordering Physician: ADRIANNE MERA Referring Physician: ADRIANNE MERA Performed By: Teresa Villafuerte RDCS Reason For Study: Diffuse large B-cell lymphoma of lymph nodes of multiple regions Exam Location: [facility]. Interpretation Summary Left ventricle is of [...] findings. No comparison study is available. Procedure Complete-[id number]. Satisfactory quality. Left Ventricle Left ventricle is [...] 164/86 mmHg Patient Location: [facility] : 1950 Height: 168 cm Account: [id number] Age: 72 yrs Weight: 97 kg Gender: Male BSA: 2.1 m2 Ordering Physician: ADRIANNE MERA Referring Physician: ADRIANNE MERA Performed By: Teresa Villafuerte RDCS Reason For Study: Diffuse large B-cell lymphoma of lymph nodes ofmultiple regions Exam Location: [facility]. Interpretation Summary Left ventricle is of [...] findings. No comparison study is available. Procedure Complete-[id number]. Satisfactory quality. Left Ventricle Left ventricle is [...] mmHg . The estimated right atrial pressure [id number]. There is Grade I LV diastolic dysfunction [...] regions documented in this encounter Care Teams Labor Specialist Relationship Specialty Start Date End Date Frederick Meade MD [address] [place] [address] PCP - General Family Medicine 11/29/17 documented as of this encounter
--- OUTSIDE RECORDS SUMMARY | 2023-10-17 03:28 | XMS_ITS | Encounter Summary ---
[place] [address] Care Team Providers Care Agriculture Department Chair Name Role Phone Frederick Meade MD Primary Care Provider [phone] Reason for Referral * Diagnostic Test (Routine) - Closed Specialty Diagnoses / Procedures Referred By Contac t Referred To Contact Radiology Diagnoses Diffuse large B-cell lymphoma of lymph nodes of multiple regions Procedures IR Mediport Placement Adrianne Ramon MD [facility] HEM[place] [address] [place] [address] Referral ID Status Reason Start Date Expiration Date V isits Requested Visits Authorized [id number] Closed Specialty Service Requested 10/11/2022 04/13/2024 1 1 * Diagnostic Test (Routine) - Closed Specialty Diagnoses / Procedures Referred By Contac t Referred To Contact Radiology Diagnoses Non-Hodgkin lymphoma of lymph nodes of multiple regions, unspecified non-Hodgkin lymphoma type Diffuse large B-cell lymphoma of lymph nodes of multiple regions Procedures NM PET CT Standard Plus Extremities and Head Adrianne Ramon MD [facility] HEMATOLOG[place] [address] [place] [address] Referral ID Status Reason Start Date Expiration Date V isits Requested Visits Authorized [id number] Closed Specialty Service Requested 10/10/2022 04/12/2024 1 2 Reason for Visit * Consultation (Routine) - Closed Specialty Diagnoses / Procedures Referred By Contac t Referred To Contact Hematology and Oncology Diagnoses Diffuse large B-cell lymphoma, unspecified body region Lg Ramírez MD [address] [place] [address] Hem Onc Office [address] [place] [phone] Referral ID Status Reason Start Date Expiration Date V isits Requested Visits Authorized [id number] Closed Consult, Test & Treat 10/10/2022 10/10/2023 1 1 Encounter Details Date Type Department Care Team (Late st Contact Info) Description 10/11/2022 12:00 PM EDT Office Visit Hematology/Oncology at [address] [phone] Adrianne Ramon MD [facility] HEMATOLOG[place] [address] Non-Hodgkin lymphoma of lymph nodes of multiple [...] - 10/11/2022 12:00 PM EDT Hematology Clinic [facility] [place] [address] NEW PATIENT EVALUATION Patient Active Problem List [...] in [facility] and when to [facility]. No beds so sent to [facility] for [address] CAP, [...] - unclear cause. - last COLO at [facility] was 01/17/2012. This dictation platform is no longer active. Please use [employer] [employer]. ONCOLOGY HISTORY: Intermediate risk prostate cancer (4+3, [...] Freire. Enjoys reads, movies, race car, cards. [employer]. 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 Not a . ETOH: 1-3 beers per week Smoking: Quit 1985. Approximately 51-qore-ltam history Vaping or electronic cigarettes: denies Chewing [...] and BCL-2 protein (Double Expressor.) Flow cytometry ([id number]) supports this interpretation. The differential classification of this lesion is diffuse large B-cell lymphoma versus high grade B-cell lymphoma with MYC and BCL-2 rearrangement. Material has been sent to [facility] to assess the status of [...] undergo investigation with ultrasound. CT CAP at [facility], report and images have been [...] treatment. We will obtain his pathology from [facility], but it appears to be a [...] will plan to see him tomorrow at [facility] after the PET scan for brief review of the PET scan and discussion of next steps. I did explain to the patient and his family that he most likely will receive R-CHOP chemotherapy which is given 1 day as an outpatient and [facility] and repeated every 3 weeksfor a total of 6 cycles. This takes about 4-1/2 months to complete. I anticipate his lymphoma will respond well. Suspected MEHNAZ - Hgb drop 3gm in last 2 weeks. Taking oral iron 2 tabs per day. Stools have been filter filler recently. No COLO in last 10 years. Will add iron studies to labs today and check PET tomorrow.Will follow. Labs seem most consistent with anemia of chronic disease. Prostate Cancer -DAVE at this time Plan: PET tomorrow [facility] Obtain Path for review at [facility] - follow on FISH Obtain records from [place] -CT chest abdomen and pelvis, discharge summary, and MRI Prednisone -we will hold for now. Await PET scan tomorrow. Mediport -order placed and requested today PTI -on 10/18 at 8 AM with Yael Merlos at [facility] ECHO-tomorrow at [facility] Add on MEHNAZ labs -results returned and listed above Labs on day of PET at [facility] Consult social work at next visit -not yet discussed Consult nutrition at next visit -not yet discussed Plan allopurinol X 14 d w/ C#1 Support with Onpro ID - acv prophy - add antibiotics only if neutropenic. Labs tomorrow at [facility] - hep B/C, HIV, uric I discussed all of the above with the patient and all of his questions were answered. Support and counseling as appropriate. This note was written or modified using [employer] voice recognition software. The final note was screened for home health clinical supervisor errors. Please excuse any remaining errors. total time: time in counselling: Copy Frederick Meade MD * Polly Orellana RN - 10/11/2022 12:00 PM EDT [facility] Patient Medical Oncology Note SOCIAL ASSESSMENT: See [facility] social assessment information entered. 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 Need FMLA [...] [ ] no Local Pharmacy: [facility] in [facility] FUNCTIONAL SCREENING: Balance difficulty: [ x [...] EDT TH Visit (TeleHealth) Hematology/Oncology at [address] [phone] Adrianne Ramon MD [facility] HEMATOLOGY AND ONCOLOGY [place] [address] Yael Merlos APRN [facility] [place] [address] 10/17/2023 1:30 PM EDT Infusion Hematology Oncology at [address] [phone] 10/26/2023 9:00 AM EDT Office Visit [place] [address] Reynold Proctor MD [facility] [place] [address] 11/14/2023 9:30 AM EDT Office Visit Hematology/Oncology at [address] [phone] Adrianne Ramon MD [facility] HEMATOLOGY [place] [address] Yael Merlos APRN [facility] [place] [address] 11/14/2023 10:00 AM EDT Infusion Hematology Oncology at [address] [phone] Scheduled Orders Name Type Priority Associated Diagnoses [...] * Uric acid (03/06/2023 7:45 AM EST) Pathologist [facility] Uric Acid 5.5 3.5 - 8.5 mg/dL [facility] Blood 03/06/2023 7:45 AM EST 03/06/2023 8:00 AM EST Narrative Resulting Agency Comment Spec In Lab Adrianne Ramon MD CHEMISTRY ORDERA BLES [facility] [place] [address] * Lactate Dehydrogenase (03/06/2023 7:45 AM EST) Pathologist [facility] Lactate Dehydrogenase 198 110 - 220 unit/L [facility] Blood 03/06/2023 7:45 AM EST 03/06/2023 8:00 AM EST Narrative Resulting Agency Comment Spec In Lab Adrianne Ramon MD CHEMISTRY ORDERA BLES Performing Organization Address City/[facility]/ZIP Co de Phone Number [facility] [place] [address] * (ABNORMAL) Immunoglobulins, Quantitative (03/06/2023 7:45 AM EST) Immunoglobulin G 572(L) 700 - 1,600 mg/dL [facility] Comment: Pediatric Reference Intervals obtained from the Caliper Reference Interval project. http://www.YUPIQ.ca/caliperproject/index.html IgA 118 70 - 400 mg/dL [facility] IgM 123 40 - 230 mg/dL [facility] Blood 03/06/2023 7:45 AM EST 03/06/2023 8:00 AM EST Narrative Resulting Agency Comment Spec In Lab Adrianne Ramon MD CHEMISTRY ORDERA BLES Performing Organization Address [facility] Co de Phone Number [facility] [place] [address] * (ABNORMAL) Comprehensive metabolic panel (non-fasting) (03/06/2023 7:45 AM EST) Glucose 133 65 - 199 mg/dL [facility] Comment:Diabetes: >=200 mg/d L plus symptoms Blood Urea Nitrogen 12 10 - 20 mg/dL [facility] Creatinine 0.94 0.80 - 1.50 mg/dL [facility] Sodium 143 135 - 145 mmol/L [facility] Potassium 3.7 3.5 - 5.0 mmol/L [facility] Comment: Please note: ??Patients with WBC >100,000 may have falsely elevated Potassium levels. ??For accurate Potassium quantification in these patients send serum separator tube (gold top) for subsequent determinations. ??Contact the Clinical Chemistry Laboratory if there are any questions. Chloride 108(H) 98 - 107 mmol/L [facility] Carbon Dioxide 23 22 - 31 mmol/L [facility] Anion Gap 12 5 - 15 mmol/L [facility] Calcium 9.6 8.5 - 10.5 mg/dL [facility] Protein, Total 6.4 6.1 - 8.0 g/dL [facility] Albumin 4.1 3.2 - 5.2 g/dL [facility] Aspartate Aminotransferase 22 0 - 39 unit/L [facility] Alanine Aminotransferase 18 0 - 55 unit/L [facility] Alkaline Phosphatase 103 40 - 130 unit/L [facility] Bilirubin, Total 0.2 0.2 - 1.3 mg/dL [facility] Est Glomerular Filtration Rate 85 >=60 mL/min/1. 73 m?? [facility] Comment: This patient's estimated GFR was [...] In Lab Adrianne Ramon MD CHEMISTRY ORDERA [facility] Organization Address City/State/[facility] Co de Phone Number [facility] [address] * HIV Screen, 4th Generation ([facility]/CGP/APD/NLH) (10/17/2022 11:45 AM EDT) HIV Ab/Ag Screen Negative Negative [facility] Comment: This 4th Generation HIV test [...] HIV Comment Low Risk of HIV Infection [facility] Blood 10/17/2022 11:4 5 AM EDT 10/17/2022 12:08 PM EDT Narrative Resulting Agency Comment Spec In Lab Adrianne Ramon MD CHEMISTRY ORDERA BLES Performing Organization Address City/[facility] Co de Phone Number [facility] [place] [address] * Hepatitis C Antibody (10/17/2022 11:45 AM EDT) Hepatitis C Antibody Negative Negative [facility] Blood 10/17/2022 11:4 5 AM EDT 10/17/2022 12:08 PM EDT Narrative Resulting Agency Comment Spec In Lab Adrianne Ramon MD CHEMISTRY ORDERA BLES Performing Organization Address [facility] Co de Phone Number [facility] [place] [address] * IR Mediport Placement (10/17/2022 10:44 AM EDT) Anatomical Region Laterality Modality X-Ray Angiograph y Narrative 10/17/2022 11:06 AM EDT Interventional Radiology Procedure Note Procedure: Subcutaneous venous port implant Indication: Diffuse large B-cell lymphoma, durable mcfp central venous access for chemotherapy Procedure summary: [...] questions please contact the health home care administrator that requested your imaging first. ? Electronically signed by: Rohan Henley MD, [facility] ([phone]), at 10/12/2022 3:23 PM Narrative 10/12/2022 3:23 PM EDT EXAMINATION: NM PET CT STANDARD PLUS EXTREMITIES AND HEAD CLINICAL HISTORY: Non-Hodgkin lymphoma, staging new large B cell lymphoma - involving oropharynx/ cervical. ??staging. TECHNIQUE: Procedure: Following IV injection of 28-baajtl-0-deoxyglucose (FDG) a standard uptake of approximately 60 [...] staging. TECHNIQUE: Procedure: Following IV injection of 23-lezspd-3-deoxyglucose(FDG) a standard uptake of approximately 60 minutes, [...] have questions please contactthe health home care administrator that requested your imaging first. Electronically signed by: Rohan Henley MD, [facility]([phone]), at 10/12/2022 3:23 PM Adrianne Ramon MD IMG PET ORDERABL ES * Comprehensive metabolic panel (non-fasting) (10/11/2022) Pathologist [facility] Blood Urea Nitrogen 20 Creatinine 1.2 Sodium 134 Potassium 4.0 Bilirubin, Total 0.3 Aspartate Aminotransferase 15 Alanine Aminotransferase 49 Lactate Dehydrogenase 283 Iron 62 Iron Saturation 29 Ferritin 139 TIBC 214 Blood 10/11/2022 Historical Provider CHEMISTRY ORDERAB LES * CBC (with Diff) (10/11/2022) [facility] White Blood Cell 11.95 Hemoglobin 10.8 Hematocrit 32.1 Platelet 290 ANC 9.67 Blood 10/11/2022 Historical Provider HEMATOLOGY ORDERA BLES * Comprehensive metabolic panel (non-fasting) (09/30/2022) [facility] Glucose 129 Blood Urea Nitrogen 24 Creatinine 1.3 Sodium 132 Potassium 3.4 Chloride 96 Carbon Dioxide 23 Calcium 9.0 Protein, Total 7.3 Albumin 3.6 Bilirubin, Total 0.3 Alkaline Phosphatase 115 Aspartate Aminotransferase 19 Alanine Aminotransferase 42 Blood 09/30/2022 Historical Provider CHEMISTRY ORDERAB LES * CBC (with Diff) (09/30/2022) [facility] White Blood Cell 13.34 Hemoglobin 13.0 Hematocrit [...] regions documented in this encounter Care Teams Agriculture Department Chair Relationship Specialty Start Date End Date Frederick Meade MD [address] [place] [address] PCP - General Family Medicine 11/29/17 documented as of this encounter
--- OUTSIDE RECORDS SUMMARY | 2023-10-17 03:28 | XMS_ITS | Encounter Summary ---
Author Organization [facility] [place] [address] Care Team Providers Care Dog Pound Attendant Name Role Phone Frederick Meade MD Primary Care Provider [phone] Encounter Details Date Type Department Care Team (Late st Contact Info) Description 10/20/2022 Telephone Hematology/Oncology at [address] [phone] Maeve Nicole, RN Social History [...] Education provided: SEE ABOVE Plan: Reinforced to patient/care-irrigation manager to call facility 11/09 with any new/worsening signs and symptoms orconcerns or questions. Phone number provided. Pt verbalized understanding and is in agreement with plan. documented in this encounter Plan of Treatment Upcoming Encounters Date Type Department Care Team (Late st Contact Info) Description 10/17/2023 1:00 PM EDT TH Visit (TeleHealth) Hematology/Oncology at [address] [phone] Adrianne Ramon MD [facility] HEMATOLOGY [place] [address] Yael Merlos APRN [facility] HEMATOLOGY [place] [address] 10/17/2023 1:30 PM EDT Infusion Hematology Oncology at [address] [phone] 10/26/2023 9:00 AM EDT Office Visit Hematology [place] [address] Reynold Proctor MD [facility] [place] [address] 11/14/2023 9:30 AM EDT Office Visit Hematology/Oncology at [address] [phone] Adrianne Ramon MD [facility] HEMATOLOGY [place] [address] Yael Merlos APRN [facility] HEMATOLOGY [place] [address] 11/14/2023 10:00 AM EDT Infusion Hematology Oncology at [address] [phone] documented as of this encounter Visit Diagnoses Not on filedocumented in this encounter Care Teams Dog Pound Attendant Relationship Specialty Start Date End Date Frederick Meade MD [address] [place] [address] [address] [place] [address] PCP - General Family Medicine 11/29/17 documented as of this encounter
--- OUTSIDE RECORDS SUMMARY | 2023-10-17 03:28 | XMS_ITS | Encounter Summary ---
Author Organization [place] [address] Care Team Providers Care Embedded Firmware Developer Name Role Phone Frederick Meade MD Primary Care Provider [phone] Encounter Details Date Type Department Care Team [...] PM EDT TH Visit (TeleHealth) Hematology/Oncology at [address] [phone] Adrianne Ramon MD [facility] [place] [address] Yael Merlos APRN [facility] [place] [address] 10/17/2023 1:30 PM EDT Infusion Hematology Oncology at [address] [phone] 10/26/2023 9:00 AM EDT Office Visit Hematology [place] [address] Reynold Proctor MD [facility] [place] [address] 11/14/2023 9:30 AM EDT Office Visit Hematology/Oncology at [address] [phone] Adrianne Ramon MD [facility] [place] [address] Yael Merlos APRN [facility] [place] [address] 11/14/2023 10:00 AM EDT Infusion Hematology Oncology at [address] [phone] documented as of this encounter Visit Diagnoses Not on filedocumented in this encounter Care Teams Embedded Firmware Developer Relationship Specialty Start Date End Date Frederick Meade MD [address] [place], [place] [id number] PCP - General Family Medicine 11/29/17 documented as of this encounter
--- OUTSIDE RECORDS SUMMARY | 2023-10-17 03:29 | XMS_ITS | Encounter Summary ---
[place] [address] Care Team Providers Care Polymerization Kettle Operator Name Role Phone Bobby Headley MD Primary Care Provider [phone] Reason for Visit * Reason Comments Radiation Follow-up prostate cancer Encounter Details Date Type Department Care Team (Late st Contact Info) Description 06/03/2015 3:15 PM EDT Office Visit Radiation Oncology at [address] [phone] [address] Carr [address] RADIATION ONCOLOGY [place], [place] [phone] Malignant neoplasm of prostate Social History Tobacco [...] encounter Progress Notes * Anna Carr Parish, PURIFICATION SUPERVISOR - 06/02/2015 9:56 AM EDT Images from [...] elevated at 5.4 with only 9% free. [place] with Dr. Vergara July 2014 who offered biopsy which was performed 09/01/14, demonstrating Gleason4 + 3 disease in a single core at the right apex. Forty-five percent of that core did appear to be involved. Perineural invasion was not seen. Pathology had been reviewed here at [facility]. 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 [...] sporting events. He will be going to [place] in September to attend a [employer] tournament. He feels he is coping well. [...] Negative. Vitals Office Visit from 06/03/2015 in [facility] Radiation Oncology [...] prostate cancer with pretreatment PSA of 5.4 [place] 4+3=7. He was treated with external beam [...] EDT TH Visit (TeleHealth) Hematology/Oncology at [address] [phone] Adrianne Ramon MD [facility] HEMATOLOGY [place] [address] Yael Merlos APRN [facility] DR [place] [address] 10/17/2023 1:30 PM EDT Infusion Hematology Oncology at [address] [phone] 10/26/2023 9:00 AM EDT Office Visit Hematology [place] [address] Reynold Proctor MD [facility] [place] [address] 11/14/2023 9:30 AM EDT Office Visit Hematology/Oncology at [address] [phone] Adrianne Ramon MD [facility] DR [place] [address] Yael Merlos APRN [facility] DR [place] [address] 11/14/2023 10:00 AM EDT Infusion Hematology Oncology at [address] [phone] documented as of this encounter Visit Diagnoses Diagnosis Malignant neoplasm of prostate documented in this encounter Care Teams Polymerization Kettle Operator Relationship Specialty Start Date End Date Bobby Headley MD [address] [place] [address] PCP - General 01/29/14 11/28/17 documented as of this encounter
--- OUTSIDE RECORDS SUMMARY | 2023-10-17 03:29 | XMS_ITS | Encounter Summary ---
Author Organization [facility] [place] [address] Care Team Providers Care Chairman & Co Founder Name Role Phone Frederick Meade MD Primary Care Provider [phone] Encounter Details Date Type Department Care Team (Late Contact Info) Description 09/21/2022 10:05 PM EDT Ancillary Procedure [place] [phone] Thierry Ruiz MD [facility] [place] [address] Social History Tobacco Use Types Packs/Day Years [...] Department Care Team (Late Contact Info) Description 10/17/2023 1:00 PM EDT TH Visit (TeleHealth) Hematology/Oncology at [address] [phone] Adrianne Ramon MD [facility] [place] [address] ChelitaYael jason APRN [facility] [place] [address] 10/17/2023 1:30 PM EDT Infusion Hematology Oncology at [address] [phone] 10/26/2023 9:00 AM EDT Office Visit Hematology [place] [address] Reynold Proctor MD [facility] [place] [address] 11/14/2023 9:30 AM EDT Office Visit Hematology/Oncology at [address] [phone] Adrianne Ramon MD [facility] [place] [address] Yael Merlos TWIST TESTER [facility] [place] [address] 11/14/2023 10:00 AM EDT Infusion Hematology Oncology at [address] [phone] documented as of this encounter Procedures Procedure [...] Ruiz MD IMG FILM LIBRARY ORD ERABLES [facility] [place] documented in this encounter Visit Diagnoses Not on filedocumented in this encounter Care Teams Chairman & Co Founder Relationship Specialty Start Date End Date Frederick Meade MD [address] [facility] [address] [place] [address] PCP - General Family Medicine 11/29/17 documented as of this encounter
--- OUTSIDE RECORDS SUMMARY | 2023-10-17 03:29 | XMS_ITS | Encounter Summary ---
Author Organization [facility] [place] [address] Care Team Providers Care Laminating Machine Operator Name Role Phone Frederick Meade MD Primary Care Provider [phone] Reason for Referral * Consultation (Routine) - Closed Specialty Diagnoses / Procedures Referred By Contac t Referred To Contact Hematology and Oncology Diagnoses Diffuse large B-cell lymphoma, unspecified body region Lg Ramírez MD [address] [place] [address] [facility] Hem Onc Office [address] [place] [phone] Referral ID Status Reason Start Date Expiration Date V isits Requested Visits Authorized [id number] Closed Consult, Test & Treat 10/10/2022 10/10/2023 1 1 Encounter Details Date Type Department Care Team (Late st Contact Info) Description 10/10/2022 Transcribe Orders eDH Incoming Referrals [phone] Lg Ramírez MD [address] [place] [phone] Diffuse large B-cell lymphoma, unspecified body region [...] EDT TH Visit (TeleHealth) Hematology/Oncology at [address] [phone] Adrianne Ramon MD [facility] DR [place] [address] Yael Merlos APRN [facility] [place] [address] 10/17/2023 1:30 PM EDT Infusion Hematology Oncology at [address] [phone] 10/26/2023 9:00 AM EDT Office Visit Hematology [place] [address] Reynold Proctor MD [facility] [place] [address] 11/14/2023 9:30 AM EDT Office Visit Hematology/Oncology at [address] [phone] Adrianne Ramon MD [facility] DR [place] [address] Yael Merlos APRN [facility] DR [place] [address] 11/14/2023 10:00 AM EDT Infusion Hematology Oncology at [address] [phone] Scheduled Referrals Name Type Priority Associated Diagnoses Orde r Schedule Referral to Hematology and Oncology Outpatient Referral Routine Diffuse large B-cell lymphoma, unspecified body region Ordered: 10/10/2022 documented as of this encounter Visit Diagnoses Diagnosis Diffuse large B-cell lymphoma, unspecified body region documented in this encounter Care Teams Laminating Machine Operator Relationship Specialty Start Date End Date Frederick Meade MD [address] [place] [address] [address] [place] [address] PCP - General Family Medicine 11/29/17 documented as of this encounter
--- OUTSIDE RECORDS SUMMARY | 2023-10-17 03:29 | XMS_ITS | Encounter Summary ---
Author Organization [facility] Address [facility] [place] [address] Care Team Providers Care Hand Touch Up Painter Name Role Phone Bobby Headley MD Primary Care Provider [phone] Reason for Visit * Reason Comments Prostate Cancer Lupron 22.5 mg into left buttocks Encounter Details Date Type Department Care Team (Late st Contact Info) Description 09/29/2014 1:00 PM EDT Infusion Hematology Oncology at [address] [phone] CLINIC, DR [facility] HEM/ONC William German MD [facility] DR [place] [address] Malignant neoplasm of prostate Discharge Disposition: Home [...] EDT TH Visit (TeleHealth) Hematology/Oncology at [address] [phone] Adrianne Ramon MD [facility] [place] [address] Yael Merlos APRN [facility] [place] [address] 10/17/2023 1:30 PM EDT Infusion Hematology Oncology at [address] [phone] 10/26/2023 9:00 AM EDT Office Visit Hematology [place] [address] Reynold Proctor MD [facility] [place] [address] 11/14/2023 9:30 AM EDT Office Visit Hematology/Oncology at [address] [phone] Adrianne Ramon MD [facility] [place] [address] Yael Merlos APRN [facility] [place] [address] 11/14/2023 10:00 AM EDT Infusion Hematology Oncology at [address] [phone] documented as of this encounter Visit Diagnoses [...] Gluteal documented in this encounter Care Teams Hand Touch Up Painter Relationship Specialty Start Date End Date Bobby Headley MD [address] [place] [address] PCP - General 01/29/14 11/28/17 documented as of this encounter
--- OUTSIDE RECORDS SUMMARY | 2023-10-17 03:29 | XMS_ITS | Encounter Summary ---
[place] [address] Care Team Providers Care Ad Operations Associate Name Role Phone Bobby Headley MD Primary Care Provider [phone] Encounter Details Date Type Department Care Team (Late st Contact Info) Description 10/14/2014 8:30 AM EDT Procedure visit Radiation Oncology at [address] [phone] Nitin Stauffer MD [address] [place] [address] DR RADIATION ONCOLOGY [place], [place] [phone] Cancer of prostate with intermediate recurrence risk [...] to undergo MRI of the prostate at [facility]. * Christine Fernando RN - 10/14/2014 8:26 [...] needed for mild discomfort. He has the [facility] phone number and verbalized understanding to ask for the pre sales technical consultant radiation oncologist if he needs to after clinic hours. Time of discharge: 10:00 vital signs stable,and gait steady and dressed himself. Dr Stauffer saw him briefly before discharge. documented in this encounter Plan of Treatment Upcoming Encounters Date Type Department Care Team (Late st Contact Info) Description 10/17/2023 1:00 PM EDT TH Visit (TeleHealth) Hematology/Oncology at [address] [phone] Adrianne Ramon MD [facility] [place] [address] Yael Merlos APRN [facility] [place] [address] 10/17/2023 1:30 PM EDT Infusion Hematology Oncology at [address] [phone] 10/26/2023 9:00 AM EDT Office Visit [place]ematology [place] [address] Reynold Proctor MD [facility] [address] 11/14/2023 9:30 AM EDT Office Visit Hematology/Oncology at [address] [phone] Adrianne Ramon MD [facility] [place] [address] Yael Merlos APRN [facility] [place] [address] 11/14/2023 10:00 AM EDT Infusion Hematology Oncology at [address] [phone] documented as of this encounter Visit Diagnoses Diagnosis Cancer of prostate with intermediate recurrence risk (stage T2b-c or Cierra 7 or PSA 10-20) Malignant neoplasm of prostate documented in this encounter Care Teams Ad Operations Associate Relationship Specialty Start Date End Date Bobby Headley MD [address] [place] [address] PCP - General 01/29/14 11/28/17 documented as of this encounter
--- OUTSIDE RECORDS SUMMARY | 2023-10-17 03:29 | XMS_ITS | Encounter Summary ---
[place] [address] Care Team Providers Care On Air Talent Name Role Phone Bobby Headley MD Primary Care Provider [phone] Reason for Visit * Reason Comments Radiation Follow-up prostate cancer Encounter Details Date Type Department Care Team (Late st Contact Info) Description 05/31/2017 11:15 AM EDT Office Visit Radiation Oncology at [address] [phone] Anna Carr [address] RADIATION ONCOLOGY [place], [place] [phone] Malignant neoplasm of prostate Social History Tobacco [...] prostate cancer with pretreatment PSA of 5.4 [place] 4+3=7. He was treated with external beam [...] elevated at 5.4 with only 9% free. Malakoff with Dr. Vergara July 2014 who offered biopsy which was performed 09/01/14, demonstrating Gleason4 + 3 disease in a single core at the right apex. Forty-five percent of that core did appear to be involved. Perineural invasion was not seen. Pathology had been reviewed here at [facility]. 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 Smoking [...] sporting events. He will be going to [place] in September to attend a [employer] tournament. He feels he is coping well. [...] content normal. Vitals reviewed. 05/24/2017 labs CA=9.3, OKE=597, BUN=37, CREAT=1.45, EGFR=48.25, PI=478, K=3.4, SZ=528, CO2=25.1, MG=2.0 Date PSA testosterone 05/23/2017 < [...] prostate cancer with pretreatment PSA of 5.4 [place] 4+3=7. He was treated with external beam [...] EDT TH Visit (TeleHealth) Hematology/Oncology at [address] [phone] Adrianne Ramon MD [facility] HEMATOLOGY [place] [address] Yael Merlos APRN [facility] DR HEMATOLOGY [place] [address] 10/17/2023 1:30 PM EDT Infusion Hematology Oncology at [address] [phone] 10/26/2023 9:00 AM EDT Office Visit Hematology [place] [address] Reynold Proctor MD [facility] [place] [address] 11/14/2023 9:30 AM EDT Office Visit Hematology/Oncology at [address] [phone] Adrianne Ramon MD [facility] DR HEMATOLOGY [place] [address] Yale Merlos, KARLA [facility] DR HEMATOLOGY [place] [address] 11/14/2023 10:00 AM EDT Infusion Hematology Oncology at [address] [phone] documented as of this encounter Visit Diagnoses Diagnosis Malignant neoplasm of prostate documented in this encounter Care Teams On Air Talent Relationship Specialty Start Date End Date Bobby Headley MD [address] [place] [address] PCP - General 01/29/14 11/28/17 documented as of this encounter
--- OUTSIDE RECORDS SUMMARY | 2023-10-17 03:29 | XMS_ITS | Encounter Summary ---
Author [place] [address] Care Team Providers Care Art Display Maker Name Role Phone Bobby Headley MD Primary Care Provider [phone] Encounter Details Date Type Department Care Team (Late st Contact Info) Description 10/15/2014 Telephone Radiation Oncology at [address] [phone] Christine Garcia RN Social History [...] Post-Procedure Phone Note Name: Cheo Freire A#: [id number] : 1950 Date/Time of Call: 10/15/2014 6:10 [...] YES NO x Comments/interventions: Section Radiation Oncology [facility] documented in this encounter Plan of Treatment Upcoming Encounters Date Type Department Care Team (Late st Contact Info) Description 10/17/2023 1:00 PM EDT TH Visit (TeleHealth) Hematology/Oncology at [address] [phone] Adrianne Ramon MD [facility] [place] [address] Yael Merlos APRN [facility] [place] [address] 10/17/2023 1:30 PM EDT Infusion Hematology Oncology at [address] [phone] 10/26/2023 9:00 AM EDT Office Visit Hematology [place] [address] Reynold Proctor MD [facility] [place] [address] 11/14/2023 9:30 AM EDT Office Visit Hematology/Oncology at [address] [phone] Adrianne Ramon MD [facility] HEMATOLOGY [place] [address] Yael Merlos APRN [facility] DR [place] [address] 11/14/2023 10:00 AM EDT Infusion Hematology Oncology at [address] [phone] documented as of this encounter Visit Diagnoses Not on filedocumented in this encounter Care Teams Art Display Maker Relationship Specialty Start Date End Date Bobby Headley MD [address] [place] [address] PCP - General 01/29/14 11/28/17 documented as of this encounter
--- OUTSIDE RECORDS SUMMARY | 2023-10-17 03:29 | XMS_ITS | Encounter Summary ---
[place] [address] Care Team Providers Care Colorer Hides And Skins Name Role Phone Frederick Meade MD Primary Care Provider [phone] Reason for Visit * Reason Comments Radiation Follow-up prostate cancer Encounter Details Date Type Department Care Team (Late st Contact Info) Description 08/21/2018 9:00 AM EDT Office Visit Radiation Oncology at [address] [phone] Anna Carr [address] [place] [address] Malignant neoplasm of prostate Social [...] 07/16/2018-- WBC= 6.9, RBC= 3.71, HGB=8, HCT=28.5, XBEN=489, FERRITIN= 7 (L) Date PSA Testosterone (normal [...] offered biopsy which was performed 09/01/14, demonstrating [place] 4+ 3 disease in a single core at the right apex. Forty-five percent of that core did appear to be involved. Perineural invasion was not seen. Pathology had been reviewed at [facility]. He did have a prolonged [...] the prostate Field orientation: Dynamic arc VMAT Psychologist Experimental Target Coverage (70Gy isodose line indicated): Hormone [...] Biopsy 09/01/2014 Volume in cc 15 cc [place] grade/score a+b=c 4+3=7-- intermediate risk prostate cancer [...] on file Occupational History ??? 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 Financial resource [...] file Gets together: Not on file Attends mandaen service: Not on file Active member of [...] or finances. He is part of a [employer] league and loves to bowl two to [...] Visit from 08/21/2018 in Radiation Oncology at [facility] Weight 94.9 kg (209 [...] 07/16/2018-- WBC= 6.9, RBC= 3.71, HGB=8, HCT=28.5, QPSA=049, FERRITIN= 7 (L) Date PSA Testosterone (normal [...] prostate cancer with pretreatment PSA of 5.4 [place] 4+3=7. He was treated with external beam [...] EDT TH Visit (TeleHealth) Hematology/Oncology at [address] [phone] Adrianne Ramon MD [facility] [place] [address] Yael Merlos APRN [facility] HEMATOLOGY [place] [address] 10/17/2023 1:30 PM EDT Infusion Hematology Oncology at [address] [phone] 10/26/2023 9:00 AM EDT Office Visit Hematology [place] [address] Reynold Proctor MD [facility] [place] [address] 11/14/2023 9:30 AM EDT Office Visit Hematology/Oncology at [address] [phone] Adrianne Ramon MD [facility] DR [place] [address] Yael Merlos PEDIATRIC PHYSICAL THERAPY ASSISTANT [facility] [place] [address] 11/14/2023 10:00 AM EDT Infusion Hematology Oncology at [address] [phone] documented as of this encounter Visit Diagnoses Diagnosis Malignant neoplasm of prostate documented in this encounter Care Teams Colorer Hides And Skins Relationship Specialty Start Date End Date Frederick Meade MD [address] [place] [address] PCP - General Family Medicine 11/29/17 documented as of this encounter
--- OUTSIDE RECORDS SUMMARY | 2023-10-17 03:29 | XMS_ITS | Encounter Summary ---
[place] [address] Care Team Providers Care Manager Supply Chain Planning Name Role Phone Bobby Headley MD Primary Care Provider [phone] Encounter Details Date Type Department Care Team (Late st Contact Info) Description 12/31/2014 8:00 AM EST Office Visit Radiation Oncology at [address] [phone] Nitin Stauffer MD [address] [place] [address] DR RADIATION ONCOLOGY [place], [place] [phone] Cancer of prostate with intermediate recurrence risk [...] Uncontrollable bleeding A Radiation Oncology doctor is home restoration service supervisor after our normal hours and on weekends. To call for urgent medical issues from radiation treatments that can not wait until normal business hours, please call and have the controls operator molded goods page the Radiation Oncologist home restoration service supervisor. Nitin Ramirez MD documented in this encounter Progress Notes * Nitin Stauffer MD - 12/31/2014 8:07 AM EST [facility] On Treatment Visit Patient ID: Cheo Freire [...] EDT TH Visit (TeleHealth) Hematology/Oncology at [address] [phone] Adrianne Ramon MD [facility] DR HEMATOLOGY [place] [address] Yael Merlos APRN [facility] HEMATOLOGY [place] [address] 10/17/2023 1:30 PM EDT Infusion Hematology Oncology at [address] [phone] 10/26/2023 9:00 AM EDT Office Visit [place]ology [place] [address] Reynold Proctor MD [facility] [place] [address] 11/14/2023 9:30 AM EDT Office Visit Hematology/Oncology at [address] [phone] Adrianne Ramon MD [facility] HEMATOLOGY [place] [address] Yael Merlos APRN [facility] HEMATOLOGY [place] [address] 11/14/2023 10:00 AM EDT Infusion Hematology Oncology at [address] [phone] documented as of this encounter Visit Diagnoses Diagnosis Cancer of prostate with intermediate recurrence risk (stage T2b-c or Cierra 7 or PSA 10-20) Malignant neoplasm of prostate documented in this encounter Care Teams Manager Supply Chain Planning Relationship Specialty Start Date End Date Bobby Headley MD [address] [place] [address] PCP - General 01/29/14 11/28/17 documented as of this encounter
--- OUTSIDE RECORDS SUMMARY | 2023-10-17 03:29 | XMS_ITS | Encounter Summary ---
[place] [address] Care Team Providers Care Supervisor Shuttle Fitting Name Role Phone Bobby Headley MD Primary Care Provider [phone] Reason for Visit * Reason Comments Radiation Follow-up prostate cancer Encounter Details Date Type Department Care Team (Late st Contact Info) Description 09/09/2015 10:30 AM EDT Office Visit Radiation Oncology at [address] [phone] Anna Carr [address] [place] [address] Malignant neoplasm of prostate Social [...] 5.4 Vitals Office Visit from 09/09/2015 in [facility] Radiation Oncology Weight - Scale 93.4 kg [...] prostate cancer with pretreatment PSA of 5.4 [place] 4+3=7. He was treated with external beam [...] elevated at 5.4 with only 9% free. [place] with Dr. Vergara July 2014 who offered biopsy which was performed 09/01/14, demonstrating Gleason4 + 3 disease in a single core at the right apex. Forty-five percent of that core did appear to be involved. Perineural invasion was not seen. Pathology had been reviewed here at [facility]. 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 Smoking [...] sporting events. He will be going to [place] in September to attend a [employer] tournament. He feels he is coping well. [...] 100 Vitals Office Visit from 09/09/2015 in [facility] Radiation Oncology Weight - Scale 93.4 kg [...] EDT TH Visit (TeleHealth) Hematology/Oncology at [address] [phone] Adrianne Ramon MD [facility] HEMATOLOGY [place] [address] Yael Merlos APRN [facility] HEMATOLOGY [place] [address] 10/17/2023 1:30 PM EDT Infusion Hematology Oncology at [address] [phone] 10/26/2023 9:00 AM EDT Office Visit Hematology [place] [address] Reynold Proctor MD [facility] [address] 11/14/2023 9:30 AM EDT Office Visit Hematology/Oncology at [address] [phone] Adrianne Ramon MD [facility] DR HEMATOLOGY [place] [address] Yael Merlos APRN [facility] HEMATOLOGY [place] [address] 11/14/2023 10:00 AM EDT Infusion Hematology Oncology at [address] [phone] documented as of this encounter Visit Diagnoses Diagnosis Malignant neoplasm of prostate documented in this encounter Care Teams Supervisor Shuttle Fitting Relationship Specialty Start Date End Date Bobby Headley MD [address] [place] [address] PCP - General 01/29/14 11/28/17 documented as of this encounter
--- OUTSIDE RECORDS SUMMARY | 2023-10-17 03:29 | XMS_ITS | Encounter Summary ---
Author Organization [facility] [place] [address] Care Team Providers Care Tag Clerk Name Role Phone Bobby Headley MD Primary Care Provider [phone] Encounter Details Date Type Department Care Team (Late st Contact Info) Description 01/12/2015 8:15 AM EST Office Visit Radiation Oncology at [address] [phone] Nitin Stauffer MD [address] [place] [address] DR RADIATION ONCOLOGY [place], [place] [phone] Cancer of prostate with intermediate recurrence risk [...] bleeding A Radiation Oncology doctor is hyperion administrator after our normal hours and on weekends. To call for urgent medical issues from radiation treatments that can not wait until normal business hours, please call and have the cream separator operator page the Radiation Oncologist hyperion administrator. Nitin Ramirez MD documented in this encounter Progress Notes * Nitin Stauffer MD - 01/12/2015 7:58 AM EST [facility] [...] EDT TH Visit (TeleHealth) Hematology/Oncology at [address] [phone] Adrianne Ramon MD [facility] [place] [address] Yael Merlos APRN [facility] [place] [address] 10/17/2023 1:30 PM EDT Infusion Hematology Oncology at [address] [phone] 10/26/2023 9:00 AM EDT Office Visit Hematology [place] [address] Reynold Proctor MD [facility] [place] [address] 11/14/2023 9:30 AM EDT Office Visit Hematology/Oncology at [address] [phone] Adrianne Ramon MD [facility] [place] [address] Yael Merlos APRN [facility] [place] [address] 11/14/2023 10:00 AM EDT Infusion Hematology Oncology at [address] [phone] documented as of this encounter Visit Diagnoses Diagnosis Cancer of prostate with intermediate recurrence risk (stage T2b-c or Dexter 7 or PSA 10-20) Malignant neoplasm of prostate documented in this encounter Care Teams Tag Clerk Relationship Specialty Start Date End Date Bobby Headley MD [address] [place] [address] PCP - General 01/29/14 11/28/17 documented as of this encounter
--- OUTSIDE RECORDS SUMMARY | 2023-10-17 03:29 | XMS_ITS | Encounter Summary ---
Author Organization [facility] [place] [address] Care Team Providers Care Head Filter Press Tender Name Role Phone Bobby Headley MD Primary Care Provider [phone] Encounter Details Date Type Department Care Team (Late st Contact Info) Description 12/01/2015 10:15 AM EDT Office Visit Hematology/Oncology at [address] [phone] Annika Quezada APRN [facility] [place] [address] Prostate cancer Social History Tobacco Use Types [...] elevated at 5.4 with only 9% free. [place] with Dr. Vergara July 2014 who offered biopsy which was performed 09/01/14, demonstrating Gleason4 + 3 disease in a single core at the right apex. Forty-five percent of that core did appear to be involved. Perineural invasion was not seen. Pathology had been reviewed here at [facility]. 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 [...] to their sporting events. He went to [place] in September to attend a [employer] tournament and had a great time. He [...] EDT TH Visit (TeleHealth) Hematology/Oncology at [address] [phone] Adrianne Ramon MD [facility] DR [place] [address] Yael Merlos APRN [facility] [place] [address] 10/17/2023 1:30 PM EDT Infusion Hematology Oncology at [address] [phone] 10/26/2023 9:00 AM EDT Office Visit Hematology [place] [address] Reynold Proctor MD [facility] [place] [address] 11/14/2023 9:30 AM EDT Office Visit Hematology/Oncology at [address] [phone] Adrianne Ramon MD [facility] [place] [address] Yael Merlos, KARLA [facility] [place] [address] 11/14/2023 10:00 AM EDT Infusion Hematology Oncology at [address] [phone] documented as of this encounter Visit Diagnoses Diagnosis Prostate cancer Malignant neoplasm of prostate documented in this encounter Care Teams Head Filter Press Tender Relationship Specialty Start Date End Date Bobby Headlye MD [address] [place] [address] PCP - General 01/29/14 11/28/17 documented as of this encounter
--- OUTSIDE RECORDS SUMMARY | 2023-10-17 03:29 | XMS_ITS | Encounter Summary ---
[place] [address] Care Team Providers Care Admitting Coordinator Name Role Phone Bobby Headley MD Primary Care Provider [phone] Encounter Details Date Type Department Care Team (Late st Contact Info) Description 12/10/2014 11:45 AM EDT Office Visit Radiation Oncology at [address] [phone] Nitin Stauffer MD [address] [place] [address] DR RADIATION ONCOLOGY [place], [place] [id number] Cancer of prostate with intermediate recurrence risk (stage T2b-c or [place] 7 or PSA 10-20) Social History Tobacco [...] Uncontrollable bleeding A Radiation Oncology doctor is aeronautical engineering professor after our normal hours and on weekends. To call for urgent medical issues from radiation treatments that can not wait until normal business hours, please call and have the door machine operator page the Radiation Oncologist aeronautical engineering professor. Nitin Ramirez MD documented in this encounter Progress Notes * Nitin Stauffer MD - 12/10/2014 11:08 AM EDT [facility] [...] EDT TH Visit (TeleHealth) Hematology/Oncology at [address] [phone] [facility] [place] [address] [facility] DR [place] [address] 10/17/2023 1:30 PM EDT Infusion Hematology Oncology at [address] [phone] 10/26/2023 9:00 AM EDT Office Visit Hematology [place] [address] [facility] [address] 11/14/2023 9:30 AM EDT Office Visit Hematology/Oncology at [address] [phone] [facility] [place] [address] [facility] [place] [address] 11/14/2023 10:00 AM EDT Infusion Hematology Oncology at [address] [phone] documented as of this encounter Visit Diagnoses Diagnosis Cancer of prostate with intermediate recurrence risk (stage T2b-c or [place] 7 or PSA 10-20) Malignant neoplasm of prostate documented in this encounter Care Teams Admitting Coordinator Relationship Specialty Start Date End Date Bobby Headley MD [address] [place] [address] PCP - General 01/29/14 11/28/17 documented as of this encounter
--- OUTSIDE RECORDS SUMMARY | 2023-10-17 03:29 | XMS_ITS | Encounter Summary ---
[place] [address] Care Team Providers Care Auto Parts Counter Person Name Role Phone Bobby Headley MD Primary Care Provider [phone] Reason for Visit * Reason Comments On Treatment Visit Encounter Details Date Type Department Care Team (Late st Contact Info) Description 01/19/2015 8:00 AM EST Office Visit Radiation Oncology at [address] [phone] Nitin Stauffer MD [address] [place] [address] [place] [address] Cancer of prostate with intermediate recurrence risk (stage T2b-c or [place] 7 or PSA 10-20) Social History Tobacco [...] Uncontrollable bleeding A Radiation Oncology doctor is system administration advisor after our normal hours and on weekends. To call for urgent medical issues from radiation treatments that can not wait until normal business hours, please call and have the paper goods machine operator page the Radiation Oncologist system administration advisor. Nitin Ramirez. MD Eh documented in this encounter Progress Notes * Nitin Stauffer MD - 01/19/2015 8:11 AM EST [facility] On Treatment [...] EDT TH Visit (TeleHealth) Hematology/Oncology at [address] [phone] Adrianne Ramon MD [facility] DR HEMATOLOGY [place] [address] Yael Merlos APRN [facility] HEMATOLOGY [place] [address] 10/17/2023 1:30 PM EDT Infusion Hematology Oncology at [address] [phone] 10/26/2023 9:00 AM EDT Office Visit Hematology [place] [address] Reynold Proctor MD [facility] [place] [place] [address] 11/14/2023 9:30 AM EDT Office Visit Hematology/Oncology at [address] [phone] Adrianne Ramon MD [facility] DR HEMATOLOGY [place] [address] Yael Merlos APRN [facility] HEMATOLOGY [place] [address] 11/14/2023 10:00 AM EDT Infusion Hematology Oncology at [address] [phone] documented as of this encounter Visit Diagnoses Diagnosis Cancer of prostate with intermediate recurrence risk (stage T2b-c or [place] 7 or PSA 10-20) Malignant neoplasm of prostate documented in this encounter Care Teams Auto Parts Counter Person Relationship Specialty Start Date End Date Bobby Headley MD [address] [place] [address] PCP - General 01/29/14 11/28/17 documented as of this encounter
--- OUTSIDE RECORDS SUMMARY | 2023-10-17 03:29 | XMS_ITS | Encounter Summary ---
[place] [address] Care Team Providers Care Window Display Designer Name Role Phone Bobby Headley MD Primary Care Provider [phone] Reason for Visit * Reason Comments Radiation Follow-up prostate cancer Encounter Details Date Type Department Care Team (Late st Contact Info) Description 02/25/2015 1:45 PM EST Office Visit Radiation Oncology at [address] [phone] Anna Carr [address] [place] [address] Malignant neoplasm of prostate Social [...] this encounter Progress Notes * Anna Carr, BACKWINDER - 02/24/2015 4:31 PM EST Images from [...] elevated at 5.4 with only 9% free. [place] with Dr. Vergara July 2014 who offered biopsy which was performed 09/01/14, demonstrating Gleason4 + 3 disease in a single core at the right apex. Forty-five percent of that core did appear to be involved. Perineural invasion was not seen. Pathology had been reviewed here at [facility]. 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 Smoking [...] Negative. Vitals Office Visit from 02/25/2015 in [facility] Radiation Oncology Weight - Scale 90.266 [...] prostate cancer with pretreatment PSA of 5.4 [place] 4+3=7. He was treated with external beam [...] EDT TH Visit (TeleHealth) Hematology/Oncology at [address] [phone] Adrianne Ramon MD [facility] DR HEMATOLOGY [place] [address] Yael Merlos APRN [facility] H[place]ATOLOG[place] [address] 10/17/2023 1:30 PM EDT Infusion Hematology Oncology at [address] [phone] 10/26/2023 9:00 AM EDT Office Visit Hematology [place] [address] Reynold Proctor MD [facility] [place] [address] 11/14/2023 9:30 AM EDT Office Visit Hematology/Oncology at [address] [phone] Adrianne Ramon MD [facility] DR HEMATOLOGY [place] [address] Yael Merlos APRN [facility] HEMATOLOG[place] [address] 11/14/2023 10:00 AM EDT Infusion Hematology Oncology at [address] [phone] documented as of this encounter Visit Diagnoses Diagnosis Malignant neoplasm of prostate documented in this encounter Care Teams Window Display Designer Relationship Specialty Start Date End Date Bobby Headley MD [address] [place] [address] PCP - General 01/29/14 11/28/17 documented as of this encounter
--- OUTSIDE RECORDS SUMMARY | 2023-10-17 03:29 | XMS_ITS | Encounter Summary ---
Author Organization [facility] [place] [address] Care Team Providers Care Security Alarm Installer Name Role Phone Bobby Headley MD Primary Care Provider [phone] Encounter Details Date Type Department Care Team (Latest Contact Info) Description 10/05/2014 Unscheduled Encounter Radiation Oncology at [address] [phone] Christine Garcia, RN Malignant neoplasm [...] Prescriptions to get filled and things to potato picker from the pharmacy: [facility] [...] for the procedure.You will need a driver license agent to take you home. ??? Change into [...] any other concerns. Future Appointments: MRI at [facility]: 10/19 at 11:10 AM arrive at : Your CT simulation, planning session will be done at [facility]. 10/21 arrive at 10:30. You will see the nurse first for patient education .You will need a comfortably full bladder by 11:00 How to reach us: Radiation Oncology [facility] [place] [address] fax After office hours phone: [phone] - ask for radiation oncology doctor senior applications analyst Radiation Oncology [address] [address] documented in this encounter Progress Notes * Christine Fernando RN - 10/05/2014 2:22 PM EDT Radiation Oncology Nurse Note [place], [place] See AVS for instructions provided to patient and his in preparation for Gold size maker implant procedure scheduled for Sun10/14/14. Prescriptions for Cipro and Dexamethasone sent to [facility]. documented in this encounter Plan of Treatment Upcoming Encounters Date Type Department Care Team (Late st Contact Info) Description 10/17/2023 1:00 PM EDT TH Visit (TeleHealth) Hematology/Oncology at [address] [phone] Adrianne Ramon MD [facility] HEMATOLOGY [place] [address] Yael Merlos APRN [facility] [place] [address] 10/17/2023 1:30 PM EDT Infusion Hematology Oncology at [address] [phone] 10/26/2023 9:00 AM EDT Office Visit [place]ematology [place] [address] Reynold Proctor MD [facility] [place] [place] [address] 11/14/2023 9:30 AM EDT Office Visit Hematology/Oncology at [address] [phone] Adrianne Ramon MD [facility] DR HEMATOLOGY [place] [address] Yael Merlos APRN [facility] DR HEMATOLOGY [place] [address] 11/14/2023 10:00 AM EDT Infusion Hematology Oncology at [address] [phone] documented as of this encounter Visit Diagnoses Diagnosis Malignant neoplasm of prostate documented in this encounter Care Teams Security Alarm Installer Relationship Specialty Start Date End Date Bobby Headley MD [address] [place] [address] PCP - General 01/29/14 11/28/17 documented as of this encounter
--- OUTSIDE RECORDS SUMMARY | 2023-10-17 03:29 | XMS_ITS | Encounter Summary ---
[place] [address] Care Team Providers Care Remote Pilot Operator Name Role Phone Bobby Headley MD Primary Care Provider [phone] Encounter Details Date Type Department Care Team (Late st Contact Info) Description 11/26/2014 9:00 AM EDT Office Visit Radiation Oncology at [address] [phone] Nitin Stauffer MD [address] [place] [address] DR RADIATION ONCOLOGY [place], [place] [id number] Cancer of prostate with intermediate recurrence risk [...] Uncontrollable bleeding A Radiation Oncology doctor is irrigation foreman after our normal hours and on weekends. To call for urgent medical issues from radiation treatments that can not wait until normal business hours, please call and have the digging machine operator page the Radiation Oncologist irrigation foreman. Nitin Ramirez MD documented in this encounter Progress Notes * Nitin Stauffer MD - 11/26/2014 11:16 AM EDT [facility] On Treatment Visit Patient ID: [...] EDT TH Visit (TeleHealth) Hematology/Oncology at [address] [phone] Adrianne Ramon MD [facility] DR [place] [address] Yael Merlos APRN [facility] [place] [address] 10/17/2023 1:30 PM EDT Infusion Hematology Oncology at [address] [phone] 10/26/2023 9:00 AM EDT Office Visit [place]ematology [place] [address] Reynold Proctor MD [facility] [place] [address] 11/14/2023 9:30 AM EDT Office Visit Hematology/Oncology at [address] [phone] Adrianne Ramon MD [facility] DR [place] [address] Yael Merlos APRN [facility] [place] [address] 11/14/2023 10:00 AM EDT Infusion Hematology Oncology at [address] [phone] documented as of this encounter Visit Diagnoses Diagnosis Cancer of prostate with intermediate recurrence risk (stage T2b-c or [place] 7 or PSA 10-20) Malignant neoplasm of prostate documented in this encounter Care Teams Remote Pilot Operator Relationship Specialty Start Date End Date Bobby Headley MD [address] [place] [address] PCP - General 01/29/14 11/28/17 documented as of this encounter
--- OUTSIDE RECORDS SUMMARY | 2023-10-17 03:29 | XMS_ITS | Encounter Summary ---
Author Organization [facility] [place] [address] Care Team Providers Care Journeyman Electrician Pv Installer Name Role Phone Frederick Meade MD Primary Care Provider [phone] Encounter Details Date Type Department Care Team (Late st Contact Info) Description 10/10/2022 Orders Only [place]ematology [place] [address] Adrianne Ramon MD [facility] [place] [address] Non-Hodgkin lymphoma of lymph nodes of multiple [...] EDT TH Visit (TeleHealth) Hematology/Oncology at [address] [phone] Adrianne Ramon MD [facility] [address] [place] [address] Yael Merlos, ACID REMOVER [facility] [place] [address] 10/17/2023 1:30 PM EDT Infusion Hematology Oncology at [address] [phone] 10/26/2023 9:00 AM EDT Office Visit Hematology [place] [address] Reynold Proctor MD [facility] [place] [address] 11/14/2023 9:30 AM EDT Office Visit Hematology/Oncology at [address] [phone] Adrianne Ramon MD [facility] [place] [address] Yael Merlos APRN [facility] [place] [address] 11/14/2023 10:00 AM EDT Infusion Hematology Oncology at [address] [phone] documented as of this encounter Visit Diagnoses Diagnosis Non-Hodgkin lymphoma of lymph nodes of multiple regions, unspecified non-Hodgkin lymphoma type documented in this encounter Care Teams Journeyman Electrician Pv Installer Relationship Specialty Start Date End Date Frederick Meade MD [address] [place] [address] PCP - General Family Medicine 11/29/17 documented as of this encounter
--- OUTSIDE RECORDS SUMMARY | 2023-10-17 03:29 | XMS_ITS | Encounter Summary ---
[place] [address] Care Team Providers Care Player Services Representative Name Role Phone Bobby Headley MD Primary Care Provider [phone] Encounter Details Date Type Department Care Team (Late st Contact Info) Description 12/14/2016 3:45 PM EDT Office Visit Hematology/Oncology at [address] [phone] Nancy Stratton, APPLICATION DEVELOPMENT LIAISON [address] [facility] [place] [address] Malignant neoplasm of prostate Social History Tobacco [...] this encounter Progress Notes * Nancy Stratton, APPLICATION DEVELOPMENT LIAISON - 12/14/2016 3:45 PM EDT Images from [...] offered biopsy which was performed 09/01/14, demonstrating [place] 4 + 3 disease in a single core at the right apex. Forty-five percent of that core did appear to be involved.Perineural invasion was not seen. Pathology had been reviewed here at [facility]. 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 Smoking [...] to their sporting events. He went to [place] last September to attend a [employer] andhad a great time. He feels he [...] prostate cancer with pretreatment PSA of 5.4 [place] 4+3=7. He was treated with external beam [...] concerns in the interim. Nancy Stratton, MSN, DIESEL MAINTENANCE TECHNICIAN, AOCN Hematology/Oncology Nurse Practitioner [place], [place] [phone] . documented in this encounter Plan of Treatment Upcoming Encounters Date Type Department Care Team (Late st Contact Info) Description 10/17/2023 1:00 PM EDT TH Visit (TeleHealth) Hematology/Oncology at [address] [phone] Adrianne Ramon MD [facility] HEMATOLOGY [place] [address] Yael Merlos APRN [facility] HEMATOLOGY [place] [address] 10/17/2023 1:30 PM EDT Infusion Hematology Oncology at [address] [phone] 10/26/2023 9:00 AM EDT Office Visit Hematology [place] [address] Reynold Proctor MD [facility] [place] [address] 11/14/2023 9:30 AM EDT Office Visit Hematology/Oncology at [address] [phone] Adrianne Ramon MD [facility] HEMATOLOGY [place] [address] Yael Merlos APRN [facility] HEMATOLOGY [place] [address] 11/14/2023 10:00 AM EDT Infusion Hematology Oncology at [address] [phone] documented as of this encounter Visit Diagnoses Diagnosis Malignant neoplasm of prostate documented in this encounter Care Teams Player Services Representative Relationship Specialty Start Date End Date Bobby Headley MD [address] [place] [address] PCP - General 01/29/14 11/28/17 documented as of this encounter
--- OUTSIDE RECORDS SUMMARY | 2023-10-17 03:29 | XMS_ITS | Encounter Summary ---
[place] [address] Care Team Providers Care Reproduction Production Manager Name Role Phone Bobby Headley MD Primary Care Provider [phone] Encounter Details Date Type Department Care Team (Late st Contact Info) Description 12/24/2014 8:15 AM EST Office Visit Radiation Oncology at [address] [phone] Nitin Stauffer MD [address] [place] [address] DR RADIATION ONCOLOGY [place], [place] [phone] Cancer of prostate with intermediate recurrence risk [...] Uncontrollable bleeding A Radiation Oncology doctor is assistant director of admissions after our normal hours and on weekends. To call for urgent medical issues from radiation treatments that can not wait until normal business hours, please call and have the waxed bag machine operator page the Radiation Oncologist assistant director of admissions. Nitin Ramirez MD documented in this encounter Progress Notes * Nitin Stauffer MD - 12/24/2014 8:16 AM EST [facility] On [...] EDT TH Visit (TeleHealth) Hematology/Oncology at [address] [phone] Adrianne Ramon MD [facility] [place] [address] Yael Merlos, KARLA [facility] [place] [address] 10/17/2023 1:30 PM EDT Infusion Hematology Oncology at [address] [phone] 10/26/2023 9:00 AM EDT Office Visit Hematology [place] [address] Reynold Proctor MD [facility] [place] [address] 11/14/2023 9:30 AM EDT Office Visit Hematology/Oncology at [address] [phone] Adrianne Ramon MD [facility] DR [place] [address] Yael Merlos APRN [facility] DR [place] [address] 11/14/2023 10:00 AM EDT Infusion Hematology Oncology at [address] [phone] documented as of this encounter Visit Diagnoses Diagnosis Cancer of prostate with intermediate recurrence risk (stage T2b-c or [place] 7 or PSA 10-20) Malignant neoplasm of prostate documented in this encounter Care Teams Reproduction Production Manager Relationship Specialty Start Date End Date Bobby Headley MD [address] [place] [address] PCP - General 01/29/14 11/28/17 documented as of this encounter
--- OUTSIDE RECORDS SUMMARY | 2023-10-17 03:29 | XMS_ITS | Encounter Summary ---
[place] [address] Care Team Providers Care Donor Support Technician Name Role Phone Frederick Meade MD Primary Care Provider [phone] Encounter Details Date Type Department Care Team (Late st Contact Info) Description 10/10/2022 Telephone [place]ology [place] [phone] Castro Jimenez MD [facility] HEMATOLOGY/[place] [address] Social History Tobacco Use Types Packs/Day Years [...] phone call from Dr. Jain (office number [phone]) at [facility] E[facility] office to discuss below. 72 yo male is seen by DR. Jain for enlarging neck masses. 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 FISH is pending. Since he was worked up in [facility], the results are in [facility] system. Due to the airway concern, pt was started on prednisone last week. Dr. Jain reached out to me to see how quickly hand kiss setter at [facility] can see him. I discussed this case with Dr. Tolliver and soon after that I was told that [facility], which will be the best plan. Dr. Jain was updated about this plan by the hematology clinic. Castro Jimenez MD [facility] Hematology Oncology Fellow Page [phone] documented in this encounter Plan of Treatment Upcoming Encounters Date Type Department Care Team (Late st Contact Info) Description 10/17/2023 1:00 PM EDT TH Visit (TeleHealth) Hematology/Oncology at [address] [phone] Adrianne Ramon MD [facility] HEMATOLOGY [place] [address] Yael Merlos APRN [facility] HEMATOLOGY [place] [address] 10/17/2023 1:30 PM EDT Infusion Hematology Oncology at [address] [phone] 10/26/2023 9:00 AM EDT Office Visit [place]ology [place] [address] Reynold Proctor MD [facility] [place] [address] 11/14/2023 9:30 AM EDT Office Visit Hematology/Oncology at [address] [phone] Adrianne Ramon MD [facility] [place]OLOG[place] [address] Yael Merlos MEDICAL TERRITORY MANAGER [facility] [place] [address] 11/14/2023 10:00 AM EDT Infusion Hematology Oncology at [address] [phone] documented as of this encounter Visit Diagnoses Not on filedocumented in this encounter Care Teams Donor Support Technician Relationship Specialty Start Date End Date Frederick Meade MD [address] [place] [address] [address] [place] [address] PCP - General Family Medicine 11/29/17 documented as of this encounter
--- OUTSIDE RECORDS SUMMARY | 2023-10-17 03:29 | XMS_ITS | Encounter Summary ---
[place] [address] Care Team Providers Care Community Support Specialist Name Role Phone Bobby Headley MD Primary Care Provider [phone] Reason for Visit * Reason Comments On Treatment Visit Encounter Details Date Type Department Care Team (Late st Contact Info) Description 12/03/2014 1:15 PM EDT Office Visit Radiation Oncology at [address] [phone] Nitin Stauffer MD [address] [place] [address] [place] [address] Cancer of prostate with intermediate recurrence risk (stage T2b-c or [place] 7 or PSA 10-20) Social History Tobacco [...] Uncontrollable bleeding A Radiation Oncology doctor is school operations manager after our normal hours and on weekends. To call for urgent medical issues from radiation treatments that can not wait until normal business hours, please call and have the coating and embossing unit operator page the Radiation Oncologist school operations manager. Nitin Ramirez MD documented in this encounter Progress Notes * Nitin Stauffer MD - 12/03/2014 1:14 PM EDT [facility] On [...] EDT TH Visit (TeleHealth) Hematology/Oncology at [address] [phone] Adrianne Ramon MD [facility] HEMATOLOGY [place] [address] Yael Merlos APRN [facility] HEMATOLOGY [place] [address] 10/17/2023 1:30 PM EDT Infusion Hematology Oncology at [address] [phone] 10/26/2023 9:00 AM EDT Office Visit [place] [address] Reynold Proctor MD [facility] [place] [address] 11/14/2023 9:30 AM EDT Office Visit Hematology/Oncology at [address] [phone] Adrianne Ramon MD [facility] DR HEMATOLOGY [place] [address] Yael Merlos, KARLA [facility] HEMATOLOGY [place] [address] 11/14/2023 10:00 AM EDT Infusion Hematology Oncology at [address] [phone] documented as of this encounter Visit Diagnoses Diagnosis Cancer of prostate with intermediate recurrence risk (stage T2b-c or [place] 7 or PSA 10-20) Malignant neoplasm of prostate documented in this encounter Care Teams Community Support Specialist Relationship Specialty Start Date End Date Bobby Headley MD [address] [place] [address] PCP - General 01/29/14 11/28/17 documented as of this encounter
--- OUTSIDE RECORDS SUMMARY | 2023-10-17 03:29 | XMS_ITS | Encounter Summary ---
Author Organization [facility] [place] [address] Care Team Providers Care Clinical Laboratory Technician Name Role Phone Bobby Headley MD Primary Care Provider Encounter Details Date Type Department Care Team (Late st Contact Info) Description 03/01/2016 11:00 AM EST Office Visit Hematology/Oncology at [address] [phone] Annika Quezada APRN [facility] [address] Prostate cancer Social History Tobacco Use Types [...] elevated at 5.4 with only 9% free. [place] with Dr. Vergara July 2014 who offered biopsy which was performed 09/01/14, demonstrating Gleason4 + 3 disease in a single core at the right apex. Forty-five percent of that core did appear to be involved. Perineural invasion was not seen. Pathology had been reviewed here at [facility]. 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 Smoking [...] to their sporting events. He went to [place] in September to attend a [employer] tournament and had a great time. He [...] EDT TH Visit (TeleHealth) Hematology/Oncology at [address] [phone] Adrianne Ramon MD [facility] DR [place] [address] Yael Merlos APRN [facility] [place] [address] 10/17/2023 1:30 PM EDT Infusion Hematology Oncology at [address] [phone] 10/26/2023 9:00 AM EDT Office Visit Hematology [place] [address] Reynold Proctor MD [facility] [place] [address] 11/14/2023 9:30 AM EDT Office Visit Hematology/Oncology at [address] [phone] Adrianne Ramon MD [facility] DR [place] [address] Yael Merlos APRN [facility] [place] [address] 11/14/2023 10:00 AM EDT Infusion Hematology Oncology at [address] [phone] documented as of this encounter Visit Diagnoses Diagnosis Prostate cancer Malignant neoplasm of prostate documented in this encounter Care Teams Clinical Laboratory Technician Relationship Specialty Start Date End Date Bobby Headley MD [address] [place] [address] PCP - General 01/29/14 11/28/17 documented as of this encounter
--- OUTSIDE RECORDS SUMMARY | 2023-10-17 03:29 | XMS_ITS | Encounter Summary ---
[place] [address] Care Team Providers Care Straightener Name Role Phone Bobby Headley MD Primary Care Provider [phone] Encounter Details Date Type Department Care Team (Late st Contact Info) Description 09/29/2014 12:00 PM EDT Office Visit Radiation Oncology at [address] [phone] Nitin Stauffer MD [address] [place] [address] DR RADIATION ONCOLOGY [place], [place] [id number] Cancer of prostate with intermediate recurrence risk [...] slowed by medications such as Viagra. Another intermediate designer but potentially serious side effect is the [...] a prostate MRI which we do at [facility], that allows us to better see your [...] [facility] simulation scan here in our [facility] clinic, typically 1-2 weeks after [...] do not hesitate to call me at [phone] with any other questions or concerns you have. Although our normal business hours are M-F 8AM-5PM, I am on- site here in [facility] Wednesdays through Fridays. On Mondays and Tuesdays, your nurse Christine Fernando will be here and can answer any questionsyou might have, or help you get in touch with me. A Radiation Oncology doctor is also web operations lead after our normal hours and on weekends for urgent questions or concerns related to radiation treatments that can not wait until normal business hours. To reach the on-call doctor after-hours, just call and have the fur operator page the Radiation Oncologist web operations lead. And, as always, if you experience any [...] injury 7. Uncontrollable bleeding Nitin Ramirez MD Assistant Analystmedical language specialist Radiation Oncology [facility] documented in this encounter Progress Notes * Nitin Stauffer MD - 09/29/2014 12:00 PM EDT Radiation Oncology New Patient Consultation [facility] Reason for Consultation: intermediate risk prostate [...] offered biopsy which was performed 09/01/14, demonstrating [place] 4 + 3 disease in a single core at the right apex. Forty-five percent of that core did appear to be involved. Perineural invasion was not seen. Pathology had been reviewed here at [facility]. 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 Estimated travel time by the patient to [facility] is 10 minutes, one-way. KPS: 100 [...] with either Dr. Nunezor Dr. Stubbs at [facility]. However, he was quite clear that the potential side effects of urinary incontinence or erectile dysfunction are completely unacceptable to him. Given the primary [place] 4 disease, I discussed the utility of [...] yes ADVANCED DIRECTIVE: yes, on file at [facility] ([facility]) PAIN ASSESSMENT: [0] out of 10 *eD-H [...] EDT TH Visit (TeleHealth) Hematology/Oncology at [address] [phone] [facility] [place] [address] Yael Merlos, KARLA [facility] [place] [address] 10/17/2023 1:30 PM EDT Infusion Hematology Oncology at [address] [phone] 10/26/2023 9:00 AM EDT Office Visit Hematology [place] [address] [facility] [place] [address] 11/14/2023 9:30 AM EDT Office Visit Hematology/Oncology at [address] [phone] [facility] DR [place] [address] [facility] [place] [address] 11/14/2023 10:00 AM EDT Infusion Hematology Oncology at [address] [phone] documented as of this encounter Procedures Procedure Name Priority Date/Time Associated Diagnosis Comments CHEMOTHERAPY SCAN 09/29/2014 12:00 AM EDT documented in this encounter Results * SCAN DOC: CHEMOTHERAPY (09/29/2014 12:00 AM EDT) Scanning Provider MEDIA MGR SCAN EXT O RDR/RSLT documented in this encounter Visit Diagnoses Diagnosis Cancer of prostate with intermediate recurrence risk (stage T2b-c or [place] 7 or PSA 10-20) Malignant neoplasm of prostate documented in this encounter Care Teams Straightener Relationship Specialty Start Date End Date Bobby Headley MD [address] [place] [address] PCP - General 01/29/14 11/28/17 documented as of this encounter
--- OUTSIDE RECORDS SUMMARY | 2023-10-17 03:29 | XMS_ITS | Encounter Summary ---
Author Organization [facility] [place] [address] Care Team Providers Care Finisher Operator Name Role Phone Bobby Headley MD Primary Care Provider [phone] Encounter Details Date Type Department Care Team (Latest Contact Info) Description 01/07/2015 Unscheduled Encounter Hematology/Oncology at [address] [phone] [facility] [place] [address] Dietary counseling and surveillance; Dietary counseling Social [...] Narvaez RD - 01/07/2015 8:45 AM EST [facility] Initial Dietitian Assessment Seen By: Gay Narvaez MS, RD, SAFETY DEPOSIT BOXES CUSTODIAN, LD Referred by: Dr. Stauffer Reason for [...] EDT TH Visit (TeleHealth) Hematology/Oncology at [address] [phone] Adrianne Ramon MD [facility] HEMATOLOGY [place] [address] Yael Merlos APRN [facility] HEMATOLOGY [place] [address] 10/17/2023 1:30 PM EDT Infusion Hematology Oncology at [address] [phone] 10/26/2023 9:00 AM EDT Office Visit Hematology [place] [address] Reynold Proctor MD [facility] [place] [address] 11/14/2023 9:30 AM EDT Office Visit Hematology/Oncology at [address] [phone] Adrianne Ramon MD [facility] HEMATOLOGY [place] [address] Yael Merlos, RIVET MAKER [facility] HEMATOLOGY [place] [address] 11/14/2023 10:00 AM EDT Infusion Hematology Oncology at [address] [phone] documented as of this encounter Visit Diagnoses Diagnosis Dietary counseling and surveillance Dietary surveillance and counseling Dietary counseling Dietary surveillance and counseling documented in this encounter Care Teams Finisher Operator Relationship Specialty Start Date End Date Bobby Headley MD [address] [place] [address] PCP - General 01/29/14 11/28/17 documented as of this encounter
--- OUTSIDE RECORDS SUMMARY | 2023-10-17 03:29 | XMS_ITS | Encounter Summary ---
Author Organization [facility] [place] [address] Care Team Providers Care Certified Medical Asst Name Role Phone Frederick Meade MD Primary Care Provider [phone] Encounter Details Date Type Department Care Team (Latest Contact Info) Description 09/22/2022 12:50 AM EDT Ancillary [place] [phone] Thierry Ruiz MD [facility] [place] [address] Nasopharyngeal mass Social History Tobacco Use Types [...] EDT TH Visit (TeleHealth) Hematology/Oncology at [address] [phone] Adrianne Ramon MD [facility] [place] [address] Yael Merlos APRN [facility] [place] [address] 10/17/2023 1:30 PM EDT Infusion Hematology Oncology at [address] [phone] 10/26/2023 9:00 AM EDT Office Visit Hematology [place] [address] Reynold Proctor MD [facility] [place] [address] 11/14/2023 9:30 AM EDT Office Visit Hematology/Oncology at [address] [phone] Adrianne Ramon MD [facility] [place] [address] Yael Merlos BRONZE PLATER [facility] [place] [address] 11/14/2023 10:00 AM EDT Infusion Hematology Oncology at [address] [phone] documented as of this encounter Procedures Procedure [...] who have questions please contact the health cattle care worker that requested your imaging first. ? Narrative 09/22/2022 3:13 PM EDT EXAMINATION: REQUEST FOR 2ND READ CT NECK CLINICAL HISTORY: Nasopharyngeal fluid collection vs infected node, retropharyngeal adenopathy, BOT fullness, RIGHT thyroid lesion; Sending Institution [facility]; Date of exam 09/21/2022; I [...] BOT fullness, RIGHT thyroid lesion; Sending Institution [facility]; Date of exam 09/21/2022; I [...] patients who have questions please contactthe health cattle care worker that requested your imaging first. Thierry Ruiz MD IMG OUTSIDE INTERPRE TATION ORDERABLES documented in this encounter Visit Diagnoses Diagnosis Nasopharyngeal mass Unspecified disease of pharynx documented in this encounter Care Teams Certified Medical Asst Relationship Specialty Start Date End Date Frederick Meade MD [address] [place] [address] PCP - General Family Medicine 11/29/17 documented as of this encounter
--- OUTSIDE RECORDS SUMMARY | 2023-10-17 03:29 | XMS_ITS | Encounter Summary ---
[place] [address] Care Team Providers Care Multi Line Claims Adjuster Name Role Phone Bobby Headley MD Primary Care Provider Reason for Visit * Reason Comments Prostate Cancer Lupron injection Encounter Details Date Type Department Care Team (Late st Contact Info) Description 12/22/2014 8:30 AM EST Infusion Hematology Oncology at [address] [phone] Malignant neoplasm of prostate Social [...] EDT TH Visit (TeleHealth) Hematology/Oncology at [address] [phone] Adrianne Ramon MD [facility] [place]OLOGY [place] [address] Yael Merlos APRN [facility] [place] [address] 10/17/2023 1:30 PM EDT Infusion Hematology Oncology at [address] [phone] 10/26/2023 9:00 AM EDT Office Visit Hematology [place] [address] Reynold Proctor MD [facility] [place] [address] 11/14/2023 9:30 AM EDT Office Visit Hematology/Oncology at [address] [phone] Adrianne Ramon MD [facility] [place] [address] Yael Merlos APRN [facility] [place] [address] 11/14/2023 10:00 AM EDT Infusion Hematology Oncology at [address] [phone] documented as of this encounter Visit Diagnoses [...] Gluteal documented in this encounter Care Teams Multi Line Claims Adjuster Relationship Specialty Start Date End Date Bobby Headley MD [address] [place] [address] PCP - General 01/29/14 11/28/17 documented as of this encounter
--- OUTSIDE RECORDS SUMMARY | 2023-10-17 03:29 | XMS_ITS | Encounter Summary ---
[place] [address] Care Team Providers Care Shipping Specialist Name Role Phone Bobby Headley MD Primary Care Provider [phone] Encounter Details Date Type Department Care Team (Late Contact Info) Description 10/21/2014 Telephone Radiation Oncology at [address] [phone] Nitin Stauffer MD [address] [place] [address] RADIATION ONCOLOGY [place], [place] [id number] Social History Tobacco Use Types Packs/Day Years [...] EDT TH Visit (TeleHealth) Hematology/Oncology at [address] [phone] Adrianne Ramon MD [facility] [place] [address] Yael Merlos APRN [facility] [place] [address] 10/17/2023 1:30 PM EDT Infusion Hematology Oncology at [address] [phone] 10/26/2023 9:00 AM EDT Office Visit Hematology [place] [address] Reynold Proctor MD [facility] [place] [address] 11/14/2023 9:30 AM EDT Office Visit Hematology/Oncology at [address] [phone] Adrianne Ramon MD [facility] [place] [address] Yael Merlos SLEEVE SEWER [facility] [place] [address] 11/14/2023 10:00 AM EDT Infusion Hematology Oncology at [address] [phone] documented as of this encounter Visit Diagnoses Not on filedocumented in this encounter Care Teams Shipping Specialist Relationship Specialty Start Date End Date Bobby Headley MD [address] [place] [address] PCP - General 01/29/14 11/28/17 documented as of this encounter
--- OUTSIDE RECORDS SUMMARY | 2023-10-17 03:29 | XMS_ITS | Encounter Summary ---
[place] [address] Care Team Providers Care Transformation Consultant Name Role Phone Frederick Meade MD Primary Care Provider [phone] Reason for Visit * Reason Comments Radiation Follow-up prostate cancer Encounter Details Date Type Department Care Team (Late st Contact Info) Description 11/29/2017 1:45 PM EDT Office Visit Radiation Oncology at [address] [phone] Anna Carr [address] [place] [address] Malignant neoplasm of prostate Social [...] prostate cancer with pretreatment PSA of 5.4 [place] 4+3=7. He was treated with external beam [...] elevated at 5.4 with only 9% free. [place] with Dr. 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 Smoking [...] prostate cancer with pretreatment PSA of 5.4 [place] 4+3=7. He was treated with external beam [...] EDT TH Visit (TeleHealth) Hematology/Oncology at [address] [phone] Adrianne Ramon MD [facility] DR [place] [address] Yael Merlos APRN [facility] [place] [address] 10/17/2023 1:30 PM EDT Infusion Hematology Oncology at [address] [phone] 10/26/2023 9:00 AM EDT Office Visit Hematology [place] [address] Reynold Proctor MD [facility] [place] [address] 11/14/2023 9:30 AM EDT Office Visit Hematology/Oncology at [address] [phone] Adrianne Ramon MD [facility] DR HEMATOLOG[place] [address] Yael Merlos APRN [facility] [place]EMAT[place] [address] 11/14/2023 10:00 AM EDT Infusion Hematology Oncology at [address] [phone] documented as of this encounter Procedures Procedure [...] prostate documented in this encounter Care Teams Transformation Consultant Relationship Specialty Start Date End Date Frederick Meade MD [address] [place] [address] PCP - General Family Medicine 11/29/17 documented as of this encounter
--- OUTSIDE RECORDS SUMMARY | 2023-10-17 03:29 | XMS_ITS | Encounter Summary ---
[place] [address] Care Team Providers Care Manager Sterile Processing Name Role Phone Frederick Meade MD Primary Care Provider [phone] Encounter Details Date Type Department Care Team (Late st Contact Info) Description 09/21/2022 Notes [place] [address] Karly Jacobs MD [facility] [place] [address] Social History Tobacco Use Types Packs/Day Years [...] by Transfer Center by Dr. Lucero at [facility] on 09/21/22 regarding Cheo Freire. Cheo Freire is a 72 y.o. male with PMH T2DM (diet controlled), HTN (lisinopril), prostate Ca (diagnosed 2014, no treatment), tobacco use history (quit 1984), prior chewing tobacco use history, very occasional alcohol who presented to [facility] with 1 wk throat swelling and [...] for scope exam to evaluate further. Unfortunately, [facility] had no availability to transfer patient at [...] Jacobs MD, PGY3 09/21/2022 11:33 PM Pager #[phone] documented in this encounter Plan of Treatment Upcoming Encounters Date Type Department Care Team (Late st Contact Info) Description 10/17/2023 1:00 PM EDT TH Visit (TeleHealth) Hematology/Oncology at [address] [phone] Adrianne Ramon MD [facility] DR HEMATOLOGY [place] [address] Yael Merlos, KARLA [facility] DR HEMATOLOGY [place] [address] 10/17/2023 1:30 PM EDT Infusion Hematology Oncology at [address] [phone] 10/26/2023 9:00 AM EDT Office Visit Hematology [place] [address] Reynold Proctor MD [facility] [place] [address] 11/14/2023 9:30 AM EDT Office Visit Hematology/Oncology at [address] [phone] Adrianne Ramon MD [facility] HEMATOLOGY [place] [address] Yael Merlos APRN [facility] HEMATOLOGY [place] [address] 11/14/2023 10:00 AM EDT Infusion Hematology Oncology at [address] [phone] documented as of this encounter Results * [...] who have questions please contact the health urgent care physician that requested your imaging first. ? Narrative 09/22/2022 3:13 PM EDT EXAMINATION: REQUEST FOR 2ND READ CT NECK CLINICAL HISTORY: Nasopharyngeal fluid collection vs infected node, retropharyngeal adenopathy, BOT fullness, RIGHT thyroid lesion; Sending Institution [facility]; Date of exam 09/21/2022; I believe [...] BOT fullness, RIGHT thyroid lesion; Sending Institution [facility]; Date of exam 09/21/2022; I believe [...] patients who have questions please contactthe health urgent care physician that requested your imaging first. Thierry Ruiz MD IMG OUTSIDE INTERPRE TATION ORDERABLES documented in this encounter Visit Diagnoses Diagnosis Nasopharyngeal mass Unspecified disease of pharynx Nasopharyngeal mass Unspecified disease of pharynx documented in this encounter Care Teams Manager Sterile Processing Relationship Specialty Start Date End Date Frederick Meade MD [address] [facility] [address] [place] [address] PCP - General Family Medicine 11/29/17 documented as of this encounter
--- OUTSIDE RECORDS SUMMARY | 2023-10-17 03:29 | XMS_ITS | Encounter Summary ---
[place] [address] Care Team Providers Care Frozen Food Department Manager Name Role Phone Bobby Headley MD Primary Care Provider Encounter Details Date Type Department Care Team (Late st Contact Info) Description 12/02/2014 Notes Only Radiation Oncology at [address] [phone] Shelley Cason MSW OFFICE OF CARE MANAGEMENT [...] Resources: Pt agreeable to participate in the [place] [facility]. Provided him with a brochure and will make outreach to Arlyn Gong RN, Chronic Bill Poster Installer, [facility]. Adjustment to Illness/Mental Health Issues: [...] EDT TH Visit (TeleHealth) Hematology/Oncology at [address] [phone] [facility] HEMATOLOGY [place] [address] Yael Merlos, KARLA [facility] HEMATOLOGY [place] [address] 10/17/2023 1:30 PM EDT Infusion Hematology Oncology at [address] [phone] 10/26/2023 9:00 AM EDT Office Visit Hematology [place] [address] [facility] [place] [address] 11/14/2023 9:30 AM EDT Office Visit Hematology/Oncology at [address] [phone] [facility] HEMATOLOGY [place] [address] [facility] DR HEMATOLOGY [place] [address] 11/14/2023 10:00 AM EDT Infusion Hematology Oncology at [address] [phone] documented as of this encounter Visit Diagnoses Not on filedocumented in this encounter Care Teams Frozen Food Department Manager Relationship Specialty Start Date End Date Bobby Headley MD [address] [place] [address] PCP - General 01/29/14 11/28/17 documented as of this encounter
--- OUTSIDE RECORDS SUMMARY | 2023-10-17 03:29 | XMS_ITS | Encounter Summary ---
Author Organization [facility] [place] [address] Care Team Providers Care Logging Equipment Operator Name Role Phone Bobby Headley MD Primary Care Provider [phone] Encounter Details Date Type Department Care Team (Late Contact Info) Description 10/21/2014 Orders Only Radiation Oncology at [address] [phone] Nitin Stauffer MD [address] [place] [address] DR RADIATION ONCOLOGY [place], [place] [id number] Social History Tobacco Use Types Packs/Day Years [...] EDT TH Visit (TeleHealth) Hematology/Oncology at [address] [phone] Adrianne Ramon MD [facility] H[place]ATOLOGY [place] [address] Yael Merlos, APPAREL FASHION DESIGNER [facility] [place] [address] 10/17/2023 1:30 PM EDT Infusion Hematology Oncology at [address] [phone] 10/26/2023 9:00 AM EDT Office Visit [place]ematology [place] [address] Reynold Proctor MD [facility] [place] [address] 11/14/2023 9:30 AM EDT Office Visit Hematology/Oncology at [address] [phone] Adrianne Ramon MD [facility] DR [place] [address] Yael Merlos, APPAREL FASHION DESIGNER [facility] [place] [address] 11/14/2023 10:00 AM EDT Infusion Hematology Oncology at [address] [phone] documented as of this encounter Procedures Procedure [...] is a Non-reportable exam Nitin Stauffer MD [facility] FILM LIBRARY ORD ERABLES documented in this encounter Visit Diagnoses Not on filedocumented in this encounter Care Teams Logging Equipment Operator Relationship Specialty Start Date End Date Bobby Headley MD [address] [place] [address] PCP - General 01/29/14 11/28/17 documented as of this encounter
--- OUTSIDE RECORDS SUMMARY | 2023-10-17 03:29 | XMS_ITS | Encounter Summary ---
Author Organization [facility] [address] Care Team Providers Care Mine Shifter Name Role Phone Bobby Headley MD Primary Care Provider [phone] Encounter Details Date Type Department Care Team (Late Contact Info) Description 09/30/2014 Orders Only Radiation Oncology at [address] [phone] Nitin Stauffer MD [address] [place] [address] DR RADIATION ONCOLOGY [place], [place] [id number] Social History Tobacco Use Types Packs/Day Years [...] EDT TH Visit (TeleHealth) Hematology/Oncology at [address] [phone] Adrianne Ramon MD [facility] HEMATOLOGY [place] [address] Yael Merlos, COMMERCIAL HORTICULTURE INSTRUCTOR [facility] HEMATOLOGY [place] [address] 10/17/2023 1:30 PM EDT Infusion Hematology Oncology at [address] [phone] 10/26/2023 9:00 AM EDT Office Visit [place]ematology [place] [address] Reynold Proctor MD [facility] [place] [address] 11/14/2023 9:30 AM EDT Office Visit Hematology/Oncology at [address] [phone] Adrianne Ramon MD [facility] DR HEMATOLOGY [place] [address] Yael Merlos, COMMERCIAL HORTICULTURE INSTRUCTOR [facility] DR HEMATOLOGY [place] [address] 11/14/2023 10:00 AM EDT Infusion Hematology Oncology at [address] [phone] documented as of this encounter Visit Diagnoses Not on filedocumented in this encounter Care Teams Mine Shifter Relationship Specialty Start Date End Date Bobby Headley MD [address] [place] [address] PCP - General 01/29/14 11/28/17 documented as of this encounter
--- OUTSIDE RECORDS SUMMARY | 2023-10-17 03:29 | XMS_ITS | Encounter Summary ---
[place] [address] Care Team Providers Care Grey Goods Examiner Name Role Phone Bobby Headley MD Primary Care Provider [phone] Encounter Details Date Type Department Care Team (Late st Contact Info) Description 01/07/2015 8:00 AM EST Office Visit Radiation Oncology at [address] [phone] Nitin Stauffer MD [address] [place] [address] DR RADIATION ONCOLOGY [place], [place] [phone] Malignant neoplasm of prostate Social History Tobacco [...] Uncontrollable bleeding A Radiation Oncology doctor is button buttonhole marker after our normal hours and on weekends. To call for urgent medical issues from radiation treatments that can not wait until normal business hours, please call and have the tin tie machine operator automatic page the Radiation Oncologist button buttonhole marker. Nitin Ramirez MD documented in this encounter Progress Notes * Nitin Stauffer MD - 01/07/2015 8:02 AM EST [facility] On Treatment Visit Patient ID: Cheo Freier is a 64 y.o. male currently undergoing [...] EDT TH Visit (TeleHealth) Hematology/Oncology at [address] [phone] Adrianne Ramon MD [facility] [place] [address] Yael Merlos APRN [facility] [place] [address] 10/17/2023 1:30 PM EDT Infusion Hematology Oncology at [address] [phone] 10/26/2023 9:00 AM EDT Office Visit Hematology [place] [address] Reynold Proctor MD [facility] [place] [address] 11/14/2023 9:30 AM EDT Office Visit Hematology/Oncology at [address] [phone] Adrianne Ramon MD [facility] [place] [address] Yael Merlos, KARLA [facility] [place] [address] 11/14/2023 10:00 AM EDT Infusion Hematology Oncology at [address] [phone] documented as of this encounter Visit Diagnoses Diagnosis Malignant neoplasm of prostate documented in this encounter Care Teams Grey Goods Examiner Relationship Specialty Start Date End Date Bobby Headley MD [address] [place] [address] PCP - General 01/29/14 11/28/17 documented as of this encounter
--- OUTSIDE RECORDS SUMMARY | 2023-10-17 03:29 | XMS_ITS | Encounter Summary ---
[place] [address] Care Team Providers Care Produce Clerk Name Role Phone Bobby Headley MD Primary Care Provider Encounter Details Date Type Department Care Team (Late st Contact Info) Description 02/01/2015 Notes Only Radiation Oncology at [address] [phone] Nitin Stauffer MD [address] [place] [address] DR RADIATION ONCOLOGY [place], [place] [id number] Social History Tobacco Use Types Packs/Day Years [...] proximal SV at the [facility] in [place], [place]. Details of his radiation treatment course are as below. RT information: Date of RT Start: 11/25/14 Date of RT Completion: 01/26/15 Dose and targets: 70.2 Gy to the proximal SV and prostate, 79.2Gy to the prostate Field orientation: Dynamic arc VMAT Psychiatric Security Nurse Target Coverage (70Gy isodose line indicated): SPECIAL [...] EDT TH Visit (TeleHealth) Hematology/Oncology at [address] [phone] Adrianne Ramon MD [facility] [place] [address] Yael Merlos APRN [facility] [place] [address] 10/17/2023 1:30 PM EDT Infusion Hematology Oncology at [address] [phone] 10/26/2023 9:00 AM EDT Office Visit [place]ology [place] [address] Reynold Proctor MD [facility] [place] [address] 11/14/2023 9:30 AM EDT Office Visit Hematology/Oncology at [address] [phone] Adrianne Ramon MD [facility] DR [place]AT[place] [address] Yael Melros, KARLA [facility] [place] [address] 11/14/2023 10:00 AM EDT Infusion Hematology Oncology at [address] [phone] documented as of this encounter Visit Diagnoses Not on filedocumented in this encounter Care Teams Produce Clerk Relationship Specialty Start Date End Date Bobby Headley MD [address] [place] [address] PCP - General 01/29/14 11/28/17 documented as of this encounter
--- OUTSIDE RECORDS SUMMARY | 2023-10-17 03:29 | XMS_ITS | Encounter Summary ---
[place] [address] Care Team Providers Care Fertilizer Applicator Name Role Phone Bobby Headley MD Primary Care Provider [phone] Encounter Details Date Type Department Care Team (Late st Contact Info) Description 10/21/2014 11:00 AM EDT Ancillary Appointment Radiation Oncology at [address] [phone] Nitin Stauffer MD [address] [place] [address] DR RADIATION ONCOLOGY [place], [place] [id number] Social History Tobacco Use Types Packs/Day Years [...] do to help manage the side effects. Shade Classifier - They take the doctors radiation prescription [...] a well balanced diet is recommended. The manager company and nurse will inform you of any [...] - Sunday 8 AM to 5 PM [facility] phone# [phone] [facility] If you have questions about your radiation [...] in injury A Radiation Oncology doctor is educational guidance counselor after our normal hours and on weekends. To call for urgent medical issues from radiation treatments that can not wait until normal business hours, please call for either location and have the double ending machine operator page the Radiation Oncologist in call. documented in this encounter Progress Notes * Nitin Stauffer MD - 10/21/2014 11:16 AM EDT Simulation Note for External Beam Radiation Treatment Planning [facility] Bolivar Freire is a 64 y.o. [...] EDT TH Visit (TeleHealth) Hematology/Oncology at [address] [phone] Adrianne Ramon MD [facility] HEMATOLOGY [place] [address] Yael Merlos APRN [facility] HEMATOLOGY [place] [address] 10/17/2023 1:30 PM EDT Infusion Hematology Oncology at [address] [phone] 10/26/2023 9:00 AM EDT Office Visit Hematology [place] [address] Reynold Proctor MD [facility] [place] [address] 11/14/2023 9:30 AM EDT Office Visit Hematology/Oncology at [address] [phone] Adrianne Ramon MD [facility] DR HEMATOLOGY [place] [address] Yael Merlos APRN [facility] HEMATOLOGY [place] [address] 11/14/2023 10:00 AM EDT Infusion Hematology Oncology at [address] [phone] documented as of this encounter Visit Diagnoses Not on filedocumented in this encounter Care Teams Fertilizer Applicator Relationship Specialty Start Date End Date Bobby Headley MD [address] [place] [address] PCP - General 01/29/14 11/28/17 documented as of this encounter
--- OUTSIDE RECORDS SUMMARY | 2023-10-17 03:29 | XMS_ITS | Encounter Summary ---
[place] [address] Care Team Providers Care Cigarette Making Examiner Name Role Phone Bobby Headley MD Primary Care Provider [phone] Encounter Details Date Type Department Care Team (Latest Contact Info) Description 01/04/2015 Unscheduled Encounter Radiation Oncology at [address] [phone] Lidia Reno, RN Malignant neoplasm of prostate [...] EDT TH Visit (TeleHealth) Hematology/Oncology at [address] [phone] Adrianne Ramon MD [facility] HEMATOLOGY [place] [address] Yael Merlos APRN [facility] HEMATOLOGY [place] [address] 10/17/2023 1:30 PM EDT Infusion Hematology Oncology at [address] [phone] 10/26/2023 9:00 AM EDT Office Visit [place]ematology [place] [address] Reynold Proctor MD [facility] [place] [address] 11/14/2023 9:30 AM EDT Office Visit Hematology/Oncology at [address] [phone] Adrianne Ramon MD [facility] HEMATOLOGY [place] [address] Yael Merlos APRN [facility] HEMATOLOGY [place] [address] 11/14/2023 10:00 AM EDT Infusion Hematology Oncology at [address] [phone] documented as of this encounter Visit Diagnoses Diagnosis Malignant neoplasm of prostate documented in this encounter Care Teams Cigarette Making Examiner Relationship Specialty Start Date End Date Bobby Headley MD [address] [place], [place] [address] PCP - General 01/29/14 11/28/17 documented as of this encounter
--- OUTSIDE RECORDS SUMMARY | 2023-10-17 03:29 | XMS_ITS | Encounter Summary ---
Author Organization [facility] [place] [address] Care Team Providers Care Motion Picture Film Examiner Name Role Phone Bobby Headley MD Primary Care Provider [phone] Encounter Details Date Type Department Care Team (Late st Contact Info) Description 05/24/2016 11:00 AM EDT Office Visit Hematology/Oncology at [address] [phone] Annika Quezada APRN [facility] [place] [address] Prostate cancer Social History Tobacco Use Types [...] elevated at 5.4 with only 9% free. Hayden with Dr. Vergara July 2014 who offered biopsy which was performed 09/01/14, demonstrating Gleason4 + 3 disease in a single core at the right apex. Forty-five percent of that core did appear to be involved. Perineural invasion was not seen. Pathology had been reviewed here at [facility]. The patient is here today to discuss [...] the prostate Field orientation: Dynamic arc VMAT Flowers Salesperson Target Coverage (70Gy isodose line indicated): Hormone [...] of education: N/A Occupational History ??? 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 Smoking status: Former Smoker Packs/day: 1.00 Types: Cigarettes ??? Smokeless tobacco: Former User Quit date: 02/19/1986 Comment: started smoking in [employer] ??? Alcohol use 1.8 oz/week 3 Standard [...] to their sporting events. He went to [place] last September to attend a [email or web address] tournament andhad a great time. He feels [...] prostate cancer with pretreatment PSA of 5.4 Ehrenberg 4+3=7. He was treated with external beam [...] EDT TH Visit (TeleHealth) Hematology/Oncology at [address] [phone] Adrianne Ramon MD [facility] [place] [address] Yael Merlos APRN [facility] [place] [address] 10/17/2023 1:30 PM EDT Infusion Hematology Oncology at [address] [phone] 10/26/2023 9:00 AM EDT Office Visit Hematology [place] [address] Reynold Proctor MD [facility] [place] [address] 11/14/2023 9:30 AM EDT Office Visit Hematology/Oncology at [address] [phone] Adrianne Ramon MD [facility] DR [place] [address] Yael Merlos APRN [facility] DR [place] [address] 11/14/2023 10:00 AM EDT Infusion Hematology Oncology at [address] [phone] documented as of this encounter Visit Diagnoses Diagnosis Prostate cancer Malignant neoplasm of prostate documented in this encounter Care Teams Motion Picture Film Examiner Relationship Specialty Start Date End Date Bobby Headley MD [address] [place] [address] PCP - General 01/29/14 11/28/17 documented as of this encounter
--- OUTSIDE RECORDS SUMMARY | 2023-10-17 03:29 | XMS_ITS | Encounter Summary ---
[place] [address] Care Team Providers Care Forwarder Operator Name Role Phone Bobby Headley MD Primary Care Provider [phone] Encounter Details Date Type Department Care Team (Late st Contact Info) Description 12/17/2014 8:15 AM EDT Office Visit Radiation Oncology at [address] [phone] Nitin Stauffer MD [address] [place] [address] DR RADIATION ONCOLOGY [place], [place] [phone] Cancer of prostate with intermediate recurrence risk [...] Uncontrollable bleeding A Radiation Oncology doctor is concrete mixer operator after our normal hours and on weekends. To call for urgent medical issues from radiation treatments that can not wait until normal business hours, please call and have the service unit operator page the Radiation Oncologist concrete mixer operator. Nitin Ramirez MD documented in this encounter Progress Notes * Nitin Stauffer MD - 12/17/2014 8:10 AM EDT [facility] On Treatment [...] EDT TH Visit (TeleHealth) Hematology/Oncology at [address] [phone] Adrianne Ramon MD [facility] DR [place] [address] Yael Merlos APRN [facility] [place] [address] 10/17/2023 1:30 PM EDT Infusion Hematology Oncology at [address] [phone] 10/26/2023 9:00 AM EDT Office Visit Hematology [place] [address] Reynold Proctor MD [facility] [place] [address] 11/14/2023 9:30 AM EDT Office Visit Hematology/Oncology at [address] [phone] Adrianne Ramon MD [facility] [place] [address] Yael Merlos, KARLA [facility] [place] [address] 11/14/2023 10:00 AM EDT Infusion Hematology Oncology at [address] [phone] documented as of this encounter Visit Diagnoses Diagnosis Cancer of prostate with intermediate recurrence risk (stage T2b-c or Cierra 7 or PSA 10-20) Malignant neoplasm of prostate documented in this encounter Care Teams Forwarder Operator Relationship Specialty Start Date End Date Bobby Headley MD [address] [place] [address] PCP - General 01/29/14 11/28/17 documented as of this encounter
--- OUTSIDE RECORDS SUMMARY | 2023-10-17 03:29 | XMS_ITS | Encounter Summary ---
[place] [address] Care Team Providers Care Business Continuity Planning Director Name Role Phone Frederick Meade MD Primary Care Provider [phone] Encounter Details Date Type Department Care Team (Late Contact Info) Description 09/22/2022 Notes [place] [address] Karly Jacobs MD [facility] [place] [address] Social History Tobacco Use Types Packs/Day Years [...] EDT TH Visit (TeleHealth) Hematology/Oncology at [address] [phone] Adrianne Ramon MD [facility] [place] [address] Yael Merlos, DISPATCHER MAINTENANCE SERVICE [facility] [place] [address] 10/17/2023 1:30 PM EDT Infusion Hematology Oncology at [address] [phone] 10/26/2023 9:00 AM EDT Office Visit Hematology [place] [address] Reynold Proctor MD [facility] [place] [address] 11/14/2023 9:30 AM EDT Office Visit Hematology/Oncology at [address] [phone] Adrianne Ramon MD [facility] DR [place] [address] Yael Merlos DISPATCHER MAINTENANCE SERVICE [facility] [place] [address] 11/14/2023 10:00 AM EDT Infusion Hematology Oncology at [address] [phone] documented as of this encounter Visit Diagnoses Not on filedocumented in this encounter Care Teams Business Continuity Planning Director Relationship Specialty Start Date End Date Frederick Meade MD [address] [facility] [address] [place] [address] PCP - General Family Medicine 11/29/17 documented as of this encounter
--- OUTSIDE RECORDS SUMMARY | 2023-10-17 03:29 | XMS_ITS | Encounter Summary ---
Author Organization [facility] [place] [address] Care Team Providers Care Design Technology Teacher Name Role Phone Bobby Headley MD Primary Care Provider [phone] Encounter Details Date Type Department Care Team (Late Contact Info) Description 11/21/2017 Orders Only Radiation Oncology at [address] [phone] Lidia Reno RN Malignant neoplasm of prostate [...] EDT TH Visit (TeleHealth) Hematology/Oncology at [address] [phone] Adrianne Ramon MD [facility] [place] [address] Yael Merlos APRN [facility] [place] [address] 10/17/2023 1:30 PM EDT Infusion Hematology Oncology at [address] [phone] 10/26/2023 9:00 AM EDT Office Visit Hematology [place] [address] Reynold Proctor MD [facility] [address] 11/14/2023 9:30 AM EDT Office Visit Hematology/Oncology at [address] [phone] Adrianne Ramon MD [facility] [place] [address] Yael Merlos [facility] [place] [address] 11/14/2023 10:00 AM EDT Infusion Hematology Oncology at [address] [phone] documented as of this encounter Visit Diagnoses Diagnosis Malignant neoplasm of prostate documented in this encounter Care Teams Design Technology Teacher Relationship Specialty Start Date End Date Bobby Headley MD [address] [place] [address] PCP - General 01/29/14 11/28/17 documented as of this encounter
--- OUTSIDE RECORDS SUMMARY | 2023-10-17 03:29 | XMS_ITS | Encounter Summary ---
[place] [address] Care Team Providers Care Costumed Character Name Role Phone Bobby Headley MD Primary Care Provider [phone] Encounter Details Date Type Department Care Team (Latest Contact Info) Description 10/19/2014 9:57 AM EDT - 10/19/2014 11:59 PM EDT Hospital [place] [phone] Nitin Stauffer MD [address] [place] [address] DR RADIATION ONCOLOGY [place], [place] [id number] Cancer of prostate with intermediate recurrence risk [...] EDT TH Visit (TeleHealth) Hematology/Oncology at [address] [phone] Adrianne Ramon MD [facility] HEMATOLOGY [place] [address] Yael Merlos APRN [facility] [place]ATOLOG[place] [address] 10/17/2023 1:30 PM EDT Infusion Hematology Oncology at [address] [phone] 10/26/2023 9:00 AM EDT Office Visit Hematology [place] [address] Reynold Proctor MD [facility] [place] [address] 11/14/2023 9:30 AM EDT Office Visit Hematology/Oncology at [address] [phone] Adrianne Ramon MD [facility] HEMATOLOGY [place] [address] Yael Merlos APRN [facility] [place]AT[place] [address] 11/14/2023 10:00 AM EDT Infusion Hematology Oncology at [address] [phone] documented as of this encounter Procedures Procedure Name Priority Date/Time Associated Diagnosis Comments MRI PELVIS SOFT TISSUE (GI TELEVISION EQUIPMENT OPERATOR) WWO CONTRAST Routine 10/19/2014 11:54 AM EDT [...] 2. Staging. ??Date of sextant biopsy: 09/24/2014 Clifton score: 4+3 TECHNIQUE: Multiparametric MRI of the [...] 2. Staging. Date of sextant biopsy: 09/24/2014 Cierra score: 4+3 [...] reviewed by the attending Nitin Stauffer MD IM MRI ORDERABLES documented in this encounter Visit [...] mLs documented in this encounter Care Teams Costumed Character Relationship Specialty Start Date End Date Bobby Headley MD [address] [place] [address] PCP - General 01/29/14 11/28/17 documented as of this encounter
--- OUTSIDE RECORDS SUMMARY | 2023-10-17 03:29 | XMS_ITS | Encounter Summary ---
[place] [address] Care Team Providers Care Climate Change Analyst Name Role Phone Frederick Meade MD Primary Care Provider [phone] Encounter Details Date Type Department Care Team (Late st Contact Info) Description 03/17/2019 10:00 AM EST Office Visit Radiation Oncology at [address] [phone] Nitin Stauffer MD [address] [place] [address] DR RADIATION ONCOLOGY [place], [place] [phone] Malignant neoplasm of prostate Social History Tobacco [...] 03/17/19 Nitin Stauffer MD, MS Radiation Oncology [facility] [phone] (paging universal grinder set up operator) Pager #[phone] Patient ID: Cheo Freire is a 64 [...] totally confined to bed or chair IMPRESSION/PLAN lobsterman effects from radiotherapy: Biochemically and clinically DAVE. No significant mcfp adverse effects from RT/ADT. Followup: Given persistently [...] minute visit was spent with the patient [id number] reviewing his interval medical history and answering questions related to his prostate cancer. documented in this encounter Plan of Treatment Upcoming Encounters Date Type Department Care Team (Late st Contact Info) Description 10/17/2023 1:00 PM EDT TH Visit (TeleHealth) Hematology/Oncology at [address] [phone] Adrianne Ramon MD [facility] HEMATOLOGY [place] [address] Yael Merlos APRN [facility] HEMATOLOGY [place] [address] 10/17/2023 1:30 PM EDT Infusion Hematology Oncology at [address] [phone] 10/26/2023 9:00 AM EDT Office Visit Hematology [place] [address] Reynold Proctor MD [facility] [place] [address] 11/14/2023 9:30 AM EDT Office Visit Hematology/Oncology at [address] [phone] Adrianne Ramon MD [facility] HEMATOLOGY [place] [address] Yael Merlos APRN [facility] HEMATOLOGY [place] [address] 11/14/2023 10:00 AM EDT Infusion Hematology Oncology at [address] [phone] documented as of this encounter Visit Diagnoses Diagnosis Malignant neoplasm of prostate documented in this encounter Care Teams Climate Change Analyst Relationship Specialty Start Date End Date Frederick Meade MD [address] [place] [address] [place] [address] PCP - General Family Medicine 11/29/17 documented as of this encounter
--- OUTSIDE RECORDS SUMMARY | 2023-10-17 03:30 | XMS_ITS | Encounter Summary ---
Author Organization [place] [address] Care Team Providers Care Relief Man Name Role Phone Bobby Headley MD Primary Care Provider [phone] Encounter Details Date Type Department Care Team (Late st Contact Info) Description 09/25/2014 External [place] [address] Provider, Scanning Social History Tobacco Use Types [...] EDT TH Visit (TeleHealth) Hematology/Oncology at [address] [phone] Adrianne Ramon MD [facility] [place] [address] Yael Merlos APRN [facility] [place] [address] 10/17/2023 1:30 PM EDT Infusion Hematology Oncology at [address] [phone] 10/26/2023 9:00 AM EDT Office Visit Hematology [place] [address] Reynold Proctor MD [facility] [place] [address] 11/14/2023 9:30 AM EDT Office Visit Hematology/Oncology at [address] [phone] Adrianne Ramon MD [facility] [place] [address] Yael Merlos APRN [facility] [place] [address] 11/14/2023 10:00 AM EDT Infusion Hematology Oncology at [address] [phone] documented as of this encounter Procedures Procedure Name Priority Date/Time Associated Diagnosis Comments SURGICAL PATHOLOGY SCAN Routine 09/25/2014 documented in this encounter Results * Scan Doc: Surgical Pathology (09/25/2014) John Vergara MD MEDIA MGR SCAN EXT O RDR/RSLT documented in this encounter Visit Diagnoses Not on filedocumented in this encounter Care Teams Relief Man Relationship Specialty Start Date End Date Bobby Headley MD [address] [place] [address] PCP - General 01/29/14 11/28/17 documented as of this encounter
--- OUTSIDE RECORDS SUMMARY | 2023-10-17 03:30 | XMS_ITS | Encounter Summary ---
Author Organization [facility] [place] [address] Care Team Providers Care Forest And Conservation Worker Name Role Phone Bobby Headley MD Primary Care Provider [phone] Encounter Details Date Type Department Care Team (Late Contact Info) Description 03/04/2014 4:07 PM EST - 03/04/2014 11:59 PM EST Hospital Encounter [place] [phone] Testis mass Social History Tobacco Use Types [...] EDT TH Visit (TeleHealth) Hematology/Oncology at [address] [phone] [facility] HEMATOLOGY [place] [address] Yael Merlos, COBOL MAINFRAME DEVELOPER [facility] HEMATOLOGY [place] [address] 10/17/2023 1:30 PM EDT Infusion Hematology Oncology at [address] [phone] 10/26/2023 9:00 AM EDT Office Visit Hematology [place] [address] [facility] [place] [address] 11/14/2023 9:30 AM EDT Office Visit Hematology/Oncology at [address] [phone] [facility] HEMATOLOGY [place] [address] [facility] [place]EMATOLOGY [place] [address] 11/14/2023 10:00 AM EDT Infusion Hematology Oncology at [address] [phone] documented as of this encounter Procedures Procedure Name Priority Date/Time Associated Diagnosis Comments US SCROTUM Routine 03/04/2014 4:46 PM EST Testis mass documented in this encounter Results * US scrotum (03/04/2014 4:46 PM EST) Anatomical Region Laterality Modality Pelvis Ultrasound 03/04/2014 4:46 PM EST Narrative 03/04/2014 5:00 PM EST Scrotal ?(Signed Final 03/04/2014 05:00 ? pm) Patient Info ID #: ? [id number] ?: ??[birth year] (63 yrs) Name: ? CHEO Santos JARETHWOOD ? Visit Date: 03/04/2014 04:39 pm Performed By Performed By: ?Hannah Wahl RDMS Attending: ? Alexandre OCASIO, Jaime Dumas Referred By: ? LANDRY NUNEZ MD Service(s) Provided ??[facility] - Ultrasound Scrotum and Contents with ?45509, 35910 ??Vascular - [id number], [id number] Indications ??Evaluate Right testicle hx of testis [...] 03/04/2014 05:00 pm) Patient Info ID #: [id number] : [birth year] (63 yrs) Name: CHEO MORFIN Visit Date: 03/04/2014 04:39 pm Performed By Performed By: Hannah Wahl RDMS Attending: Jaime Schroeder MD Referred By: LANDRY NUNEZ MD Service(s) Provided [facility] - Ultrasound Scrotum and Contents with 10034, 88138 Vascular - [id number], [id number] Indications Evaluate Right testicle hx of testis [...] organs documented in this encounter Care Teams Forest And Conservation Worker Relationship Specialty Start Date End Date Bobby Headley MD [address] [place] [address] PCP - General 01/29/14 11/28/17 documented as of this encounter
--- OUTSIDE RECORDS SUMMARY | 2023-10-17 03:30 | XMS_ITS | Encounter Summary ---
[place] [address] Care Team Providers Care Conveyancer Name Role Phone Bobby Headley MD Primary Care Provider [phone] Encounter Details Date Type Department Care Team (Late Contact Info) Description 09/24/2014 4:13 PM EDT - 09/24/2014 11:59 PM EDT Hospital [place] [phone] Tk Vergara MD [address] [place] [address] Discharge Disposition: Home Social History Tobacco Use [...] EDT TH Visit (TeleHealth) Hematology/Oncology at [address] [phone] Adrianne Ramon MD [facility] HEMATOLOGY [place] [address] Yael Merlos APRN [facility] HEMATOLOGY [place] [address] 10/17/2023 1:30 PM EDT Infusion Hematology Oncology at [address] [phone] 10/26/2023 9:00 AM EDT Office Visit Hematology [place] [address] Reynold Proctor MD [facility] [place] [address] 11/14/2023 9:30 AM EDT Office Visit Hematology/Oncology at [address] [phone] Adrianne Ramon MD [facility] HEMATOLOGY [place] [address] Yael Merlos BUFFER MACHINE [facility] HEMATOLOGY [place] [address] 11/14/2023 10:00 AM EDT Infusion Hematology Oncology at [address] [phone] documented as of this encounter Procedures Procedure Name Priority Date/Time Associated Diagnosis Comments SURGICAL PATHOLOGY REPORT Routine 09/24/2014 10:06 AM EDT documented in this encounter Results * Surgical Pathology Report (09/24/2014 10:06 AM EDT) Final Diagnosis ? [facility] ? Provider: ?? TK VERGARA ?? Pt. Name: ?? CHEO MORFIN ? Acc #: ?[id number] ?Pt. ? Col Date: ?? 09/24/2014 ?/Sex: ?1950,(64 years),Male ? Rec Date: ?? 09/25/2014 ?LOC: ?[facility] ? SURGICAL PATHOLOGY ? DIAGNOSIS ? CONSULTATION CASE ? Outside slides labeled [id number], collection date 09/01/2014 ? A - Prostatic [...] needle biopsy, right mid apex: ? Adenocarcinoma, Ericson grade 4+3, discontinuously involving ? approximately 45% [...] mid apex: ? Benign prostatic tissue. ? [facility] ? Provider: ?? TK VERGARA ?? Pt. Name: ?? CHEO MORFIN ? Acc #: ?[id number] ?Pt. ? Col Date: ?? 09/24/2014 ?/Sex: [...] description not recorded. ? Whole slide scan: ?[id number] ? GROSS DESCRIPTION ? [facility] ([facility]) pathology slide(s) are ? reviewed. ??Refer to Diagnosis and Specimen Submitted for specific case ? information. ? For the full text of the [facility] report(s) please refer to Non-DH ? Documentation Pathology in the electronic health record (eDH). ? CLINICAL INFORMATION ? Specimen Submitted: ? CONSULTATION CASE ? A - 20 slides labeled [id number], collection date 09/01/2014. ? [id number] ? Report to: ? [facility] ? Surgical Pathology Department ? [facility], 2nd Floor ? [address] ? [place], [place] ??[address] ? 09/28/2014 3:18 PM EDT [facility] Consult Case 09/24/2014 10:0 6 AM EDT 09/24/2014 10:06 AM EDT Tk Vergara MD PATHOLOGY/CYTOLOGY O RDLOGAN Performing Organization Address City/State/[facility] Co de Phone Number [facility] [place] [address] documented in this encounter Visit Diagnoses Not on filedocumented in this encounter Care Teams Conveyancer Relationship Specialty Start Date End Date Bobby Headley MD [address] [place] [address] PCP - General 01/29/14 11/28/17 documented as of this encounter
--- OUTSIDE RECORDS SUMMARY | 2023-10-17 03:30 | XMS_ITS | Encounter Summary ---
Author Organization [facility] [address] Care Team Providers Care Precision Dyer Name Role Phone Bobby Headley MD Primary Care Provider [phone] Encounter Details Date Type Department Care Team (Late Contact Info) Description 09/01/2014 Orders [place] [address] Micha Nunez MD [facility] [place] [address] Social History Tobacco Use Types Packs/Day Years [...] EDT TH Visit (TeleHealth) Hematology/Oncology at [address] [phone] Adrianne Ramon MD [facility] DR [place] [address] Yael Merlos APRN [facility] [place] [address] 10/17/2023 1:30 PM EDT Infusion Hematology Oncology at [address] [phone] 10/26/2023 9:00 AM EDT Office Visit Hematology [place] [address] Reynold Proctor MD [facility] [place] [address] 11/14/2023 9:30 AM EDT Office Visit Hematology/Oncology at [address] [phone] Adrianne Ramon MD [facility] DR [place] [address] Yael Merlos APRN [facility] [place] [address] 11/14/2023 10:00 AM EDT Infusion Hematology Oncology at [address] [phone] documented as of this encounter Procedures Procedure [...] filedocumented in this encounter Care Teams Precision Dyer Relationship Specialty Start Date End Date Bobby Headley MD [address] [place] [address] PCP - General 01/29/14 11/28/17 documented as of this encounter
--- OUTSIDE RECORDS SUMMARY | 2023-10-17 03:30 | XMS_ITS | Encounter Summary ---
Author Organization [facility] [place] [address] Care Team Providers Care Heel Stainer Name Role Phone Bobby Headley MD Primary Care Provider [phone] Encounter Details Date Type Department Care Team (Late Contact Info) Description 12/30/2013 [place] [address] Micha Nunez MD [facility] [place] [address] Social History Tobacco Use Types Packs/Day Years [...] EDT TH Visit (TeleHealth) Hematology/Oncology at [address] [phone] Adrianne Ramon MD [facility] DR HEMATOLOGY [place] [address] Yael Merlos APRN [facility] [place]ATOLOG[place] [address] 10/17/2023 1:30 PM EDT Infusion Hematology Oncology at [address] [phone] 10/26/2023 9:00 AM EDT Office Visit Hematology [place] [address] Reynold Proctor MD [facility] [place] [address] 11/14/2023 9:30 AM EDT Office Visit Hematology/Oncology at [address] [phone] Adrianne Ramon MD [facility] DR HEMATOLOGY [place] [address] Yael Merlos APRN [facility] [place]ATOLOG[place] [address] 11/14/2023 10:00 AM EDT Infusion Hematology Oncology at [address] [phone] documented as of this encounter Procedures Procedure [...] on filedocumented in this encounter Care Teams Heel Stainer Relationship Specialty Start Date End Date Bobby Headley MD [address] [place] [address] PCP - General 01/29/14 11/28/17 documented as of this encounter
--- OUTSIDE RECORDS SUMMARY | 2023-10-17 03:30 | XMS_ITS | Encounter Summary ---
[place] [address] Care Team Providers Care Insole Filler Name Role Phone Bobby Headley MD Primary Care Provider [phone] Encounter Details Date Type Department Care Team (Late Contact Info) Description 09/28/2014 Abstract Radiation Oncology at [address] [phone] Christine Garcia, RN Social History Tobacco Use [...] EDT TH Visit (TeleHealth) Hematology/Oncology at [address] [phone] Adrianne Ramon MD [facility] HEMATOLOGY [place] [address] Yael Merlos APRN [facility] HEMATOLOGY [place] [address] 10/17/2023 1:30 PM EDT Infusion Hematology Oncology at [address] [phone] 10/26/2023 9:00 AM EDT Office Visit Hematology [place] [address] Reynold Proctor MD [facility] [place] [address] 11/14/2023 9:30 AM EDT Office Visit Hematology/Oncology at [address] [phone] Adrianne Ramon MD [facility] DR HEMATOLOGY [place] [address] Yael Merlos APRN [facility] HEMATOLOGY [place] [address] 11/14/2023 10:00 AM EDT Infusion Hematology Oncology at [address] [phone] documented as of this encounter Visit Diagnoses Not on filedocumented in this encounter Care Teams Insole Filler Relationship Specialty Start Date End Date Bobby Headley MD [address] [place] [address] PCP - General 01/29/14 11/28/17 documented as of this encounter
--- OUTSIDE RECORDS SUMMARY | 2023-10-17 03:30 | XMS_ITS | Encounter Summary ---
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 The patient has been for 24 years [...] notable for a small left testicle ~ [id number]. There is a tiny firm area palpable [...] EDT TH Visit (TeleHealth) Hematology/Oncology at [address] [phone] Adrianne Ramon MD [facility] HEMATOLOGY [place] [address] Yael Merlos APRN [facility] HEMATOLOGY [place] [address] 10/17/2023 1:30 PM EDT Infusion Hematology Oncology at [address] [phone] 10/26/2023 9:00 AM EDT Office Visit [place] [phone] Reynold Proctor MD [facility] [place] [address] 11/14/2023 9:30 AM EDT Office Visit Hematology/Oncology at [address] [phone] Adrianne Ramon MD [facility] HEMATOLOGY [place] [address] Yael Merlos APRN [facility] HEMATOLOGY [place] [address] 11/14/2023 10:00 AM EDT Infusion Hematology Oncology at [address] [phone] documented as of this encounter Procedures Procedure [...] ? pm) Patient Info ID #: ? [id number] ?: ??[birth year] (63 yrs) Name: ? CHEO MORFIN ? Visit Date: 03/04/2014 04:39 pm Performed By Performed By: ?Hannah Wahl RDMS Attending: ? Alexandre OCASIO, Jaime Dumas Referred By: ? LANDRY NUNEZ MD Service(s) Provided ??[facility] - Ultrasound Scrotum and Contents with ?[id number], [id number] ??Vascular - [id number], [id number] Indications ??Evaluate Right testicle hx of testis [...] 03/04/2014 05:00 pm) Patient Info ID #: [id number] : [birth year] (63 yrs) Name: CHEO MORFIN Visit Date: 03/04/2014 04:39 pm Performed By Performed By: Hannah Wahl RDMS Attending: Jaime Schroeder MD Referred By: LANDRY NUNEZ MD Service(s) Provided [facility] - Ultrasound Scrotum and Contents with [id number], [id number] Vascular - [id number], [id number] Indications Evaluate Right testicle hx of testis [...] Lab Landry Nunez MD [facility] * AFP tumor marker (03/04/2014 4:03 PM EST) Alpha Fetoprotein 2.3 <=8.3 ng/mL [facility] Blood specimen (specimen) 03/04/2014 4:03 PM EST 03/04/2014 4:07 PM EST Narrative Resulting Agency Comment Spec In Lab Landry Nunez MD CHEMISTRY ORDERABLES [facility] * Beta HCG, quantitative (03/04/2014 4:03 PM EST) Beta Human Chorionic Gonadotropin, Quantitative <1 0 - 2 mlU/ML [facility] Comment: REFERENCE RANGES NON- FEMALE: ??Less [...] - 56,451 ?17 weeks ? 8,175 - 10,868 ?18 weeks ? 8,099 - 44,176 Blood [...] organs documented in this encounter Care Teams Computing Machine Operator Relationship Specialty Start Date End Date Bobby Headley MD [address] [place] [address] PCP - General 01/29/14 11/28/17 documented as of this encounter
[2023-10-17 12:12] LABS: Abs Immature Grans 0.08 10^3/uL (0.0-0.06); Absolute Basophil Count 0.02 10^3/uL (0.0-0.2); Absolute Eosinophil Count 0.18 10^3/uL (0.0-0.7); Absolute Lymphocyte Count 0.57 10^3/uL (1.2-3.4); Absolute Monocyte Count 0.78 10^3/uL (0.1-0.8); Absolute Neutrophil Count 2.61 10^3/uL (1.2-6.7); Basophils % 0.5 %; Eosinophils % 4.2 %; HCT 33.9 % (40.0-50.0); HGB 10.9 g/dL (13.5-17.5); Immature Grans % 1.9 %; Lymphocytes % 13.4 %; MCH 29.9 pg (27.0-33.0); MCHC 32.2 % (32.0-36.0); MCV 93 fL (80-95); Monocytes % 18.4 %; Neutrophils % 61.6 %; Platelet Count 197 10^3/uL (130-400); RBC 3.64 10^6/uL (4.36-5.78); RDW 14.8 % (11.8-14.1); RDW-SD 50.4 fL; WBC 4.24 10^3/uL (4.4-10.8)
[2023-10-17 12:41] LABS: ALT 36 U/L (16-63); AST 19 U/L (15-37); Albumin 2.5 g/dL (3.4-5.0); Alkaline Phosphatase 103 U/L (46-116); Anion Gap 8.8 mmol/L (3-11); BUN 11 mg/dL (7-18); Bilirubin, Total 0.28 mg/dL (0.2-1.0); CO2 25.2 mmol/L (21.0-32.0); CREATININE 1.2 mg/dL (0.70-1.30); Calcium 8.6 mg/dL (8.5-10.1); Chloride 104 mmol/L (98-107); Estimated GFR 63.07 (mL/min/1.73m2); Glucose 132 mg/dL (74-106); LDH 185 U/L (85-227); Sodium 138 mmol/L (136-145); Total Protein 5.9 g/dL (6.4-8.2)
[2023-10-17 13:16] LABS: Ferritin 539 ng/mL (26-388)
== END 2023-10-17 03:23 | disposition home or self-care (01) ==
LOC: LBO 03:22
PROVIDERS: Nurse Practitioner Adult Health; PCP Family Medicine; Visit Provider Internal Medicine Medical Oncology
DX: C83.38 Diffuse large B-cell lymphoma, lymph nodes of multiple sites (principal); C85.98 Non-Hodgkin lymphoma, unspecified, lymph nodes of multiple sites; D50.9 Iron deficiency anemia, unspecified
CPT/HCPCS: 36415; 80053; 82728; 83615; 85025

== ENCOUNTER → 2023-10-23 11:08 | Outpatient (BNVA) | payer MEDICARE, SELFPAY | PROVIDERS: PCP Family Medicine; Referring Provider Family Medicine; Visit Provider Surgery | DX: Z12.11 Encounter for screening for malignant neoplasm of colon (principal) ==

== ENCOUNTER 2023-11-16 05:05 | Emergency (ER) | payer MEDICARE, SELFPAY ==
[2023-11-16 05:06] VITALS: BP 144/64; PULSE 74; RESP 18; TEMP 35.9; O2SAT 97
[2023-11-16] MEDS: Acetaminophen 500 MG TAB 1000 MG PO (05:29)
[2023-11-16] MEDS: diazePAM 2 MG TAB PO (05:29)
[2023-11-16] MEDS: Lidocaine 5% Patch 1 PATCH TP (05:30)
[2023-11-16] MEDS: Ketorolac 15 MG/ML VIAL IM (05:30)
--- NOTE | 2023-11-16 05:46 | ED.GENADUL_ITS ---
Discharge Plan Disposition Patient Disposition: Home Condition: Good Discharge Details Clinical Impression: Acute torticollis Primary Care Provider: Frederick Meade ED Provider: Brittnee Tyson Home Meds and New Rx's Prescriptions: Continued All Day Allergy (cetirizine) 10 mg capsule 10 mg PO DAILY PRN aspirin 325 mg tablet 325 mg PO DAILY psyllium husk [Metamucil] 0.4 gram capsule 0.4 g PO DAILY acetaminophen [Tylenol Extra Strength] 500 mg tablet 1,000 mg PO Q6H PRN amlodipine 5 mg tablet 5 mg PO DAILY Qty: 90 3RF aspirin [Aspirin Low-Strength] 81 MG tablet,chewable 81 mg PO DAILY (DME) blood-glucose meter [[employer] UltraMini] 1 EACH kit 1 ea Miscellaneous DAILY Qty: 1 (DME) pen needle, diabetic [1st Tier Unifine Pentips] 31 gauge x 1/4 needle See Rx Instructions .Route Qty: 100 0RF Rx Instructions: As directed allopurinol 100 mg tablet 200 mg PO DAILY Qty: 180 3RF (DME) lancets Misc 1 ea Intradermal DAILY Qty: 100 3RF Rx Instructions: test QID lenalidomide [Revlimid] 20 mg capsule 20 mg PO DAILY Rx Instructions: swallow whole with glass of water; do not open, crush, chew , break, or dissolve potassium chloride 20 mEq tablet extended release 20 meq PO DAILY Rx Instructions: for 30 days diphenoxylate-atropine [Lomotil] 2.5-0.025 mg tablet 1 tab PO QID PRN Bacid with Lactospore 1 billion cell capsule 1 cell PO DAILY colchicine 0.6 mg tablet 0.6 mg PO DAILY PRN (DME) blood sugar diagnostic Strip See Dose Instructions .ROUTE .MEDSUPPLY Qty: 100 3RF Dose Instruction: As directed Rx Instructions: test TID docusate sodium 100 mg capsule 100 mg PO BID PRN insulin asp prt-insulin aspart [Novolog Mix 70-30FlexPen U-100] 100 unit/mL (70-30) insulin pen 9 unit subcut QDAY Qty: 15 0RF Rx Instructions: 11/08/23: Decreased to 9 units once daily. See task. -hb Discharge Instructions Instructions: Torticollis (DC) Additional Instructions: Tylenol and ibuprofen over the counter; follow the directions on the bottle. You can take diazepam up to twice a day as needed for muscle spasm. Do not drive while you take this. It also increases your risk for falling; take it only if necessary and ideally when someone is available to help you. MENTION THIS NEW MEDICATION TO YOUR SURGEON AND ANESTHESIOLOGIST AT YOUR COLONOSCOPY APPOINTMENT TODAY Call your primary care doctor today to schedule an appointment for within the next 72 hours to follow up on your visit here. Return to the emergency department for new or worsening symptoms including fever, new/different/worse pain, if you cannot move your neck, numbness or weakness, or if you have any other concerns. Referrals: Frederick Meade MD [Primary Care Provider] - [facility] General Mode of arrival: EMS . Date/Time Provider Initiated Documentation: 11/16/23 05:17 . Limitations to Documentation: no limitations . Information obtained by: patient and EMS . HPI Narrative: 73yo M with hx HTN, DM, gout, lymphoma, presenting for neck spasm. Yesterday morning woke with his head in an odd position and noted right sided neck pain and stiffness. This persisted yesterday, was improved by heat packs. This morning woke again with right sided neck pain and stiffness, difficulty turning his head. Able to look to the left and down with some discomfort; has significant pain when trying to look right or up. No numbness, tingling, or weakness. No fevers. No hx of spinal surgery or IVDU. No falls or injuries. No fevers, chills, rash, nausea, vomiting, or other concerns. Otherwise in his usual state of health. Has a colonoscopy scheduled for this morning. Related Data Home Medications ?Medication ?Instructions ?Recorded ?Confirmed aspirin 81 mg chewable tablet 81 mg PO DAILY 06/24/12 11/16/23 (Aspirin Low-Strength) blood-glucose meter ([employer] ##1 07/31/16 11/16/23 UltraMini kit) cetirizine 10 mg capsule (All Day 10 mg PO DAILY PRN 01/16/18 11/16/23 Allergy (cetirizine)) amlodipine 5 mg tablet 5 mg PO DAILY #90 tabs 12/05/22 11/16/23 pen needle, diabetic 31 gauge x #100 ea 09/26/23 11/16/2302/22 (1st Tier Unifine Pentips) allopurinol 100 mg tablet 200 mg (2 x 100 mg) PO DAILY #180 10/01/23 11/16/23 tab-caps lancets #100 ea 10/02/23 11/16/23 Bacillus coagulans 1 billion cell 1 cell PO DAILY 10/17/23 11/16/23 capsule (Bacid with Lactospore) blood sugar diagnostic #100 ea 10/17/23 11/16/23 colchicine 0.6 mg tablet 0.6 mg PO DAILY PRN 10/17/23 11/16/23 diphenoxylate-atropine 2.5 1 tab PO QID PRN 10/17/23 11/16/23 mg-0.025 mg tablet (Lomotil) lenalidomide 20 mg capsule 20 mg PO DAILY 10/17/23 11/16/23 (Revlimid) potassium chloride 20 mEq 20 meq PO DAILY 10/17/23 11/16/23 tablet,extended release acetaminophen 500 mg tablet 1,000 mg PO Q6H PRN 10/23/23 11/16/23 (Tylenol Extra Strength) aspirin 325 mg tablet 325 mg PO DAILY 10/23/23 11/16/23 docusate sodium 100 mg capsule 100 mg PO BID PRN 10/23/23 11/16/23 psyllium husk 0.4 gram capsule 0.4 g PO DAILY 10/23/23 11/16/23 (Metamucil) insulin aspar prot-insulin aspart 9 unit (0.09 mL) subcut QDAY #15 mL 11/15/23 11/16/23 100 unit/mL (70-30) subcutaneous pen (Novolog Mix 70-30FlexPen U-100) Previous Rx's ?Medication ?Instructions ?Recorded amlodipine 5 mg tablet 5 mg PO DAILY #90 tabs 12/05/22 pen needle, diabetic 31 gauge x #100 ea 09/26/2302/22 (1st Tier Unifine Pentips) allopurinol 100 mg tablet 200 mg (2 x 100 mg) PO DAILY #180 10/01/23 tab-caps lancets #100 ea 10/02/23 blood sugar diagnostic #100 ea 10/17/23 insulin aspar prot-insulin aspart 9 unit (0.09 mL) subcut QDAY #15 mL 11/15/23 100 unit/mL (70-30) subcutaneous pen (Novolog Mix 70-30FlexPen U-100) Allergies Allergy/AdvReac Type Severity Reaction Status Date / Time No Known Allergies Allergy Verified 11/16/23 05:10 General Stated Complaint: Nk/Back Pain BENJI: 4 Review of Systems Narrative: see HPI Exam Narrative Exam Narrative: General: Alert, well appearing, well nourished, in no acute distress. Head: Normocephalic, atraumatic Neck: Trachea midline, ?Neck supple. No midline tenderness. Right cervical paraspinal tenderness and spasm. Reduced ROM 2/t pain; moderate ROM with left lateral and flexion, minimal with right lateral and extension. ENT: ?MMM.? Cardiac: ?RRR, no murmurs appreciated Resp: No respiratory distress. CTAB. Abd: ?Soft, non-distended, nontender Extremities: ?No deformities.? No peripheral edema. Neuro: ? GCS 15.? PERRL.? EOMI.? Fluent speech, no dysarthria. No nucal rigidity. Motor- 5/5 strength symmetric bilateral upper and lower extremities Sensation- ?Intact to light touch and symmetric multiple dermatomes including upper and lower extremities Course Vital Signs Vital signs: Vital Signs Temperature 35.9 C L 11/16/23 05:06 Pulse 74 11/16/23 05:06 Respiratory Rate 18 11/16/23 05:06 Blood Pressure 144/64 H 11/16/23 05:06 Pulse Oximetry 97 11/16/23 05:06 Temperature 35.9 C L 11/16/23 05:06 Pulse 74 11/16/23 05:06 Respiratory Rate 18 11/16/23 05:06 Respiratory Effort Normal 11/16/23 05:10 Blood Pressure 144/64 H 11/16/23 05:06 Blood Pressure Position Sitting 11/16/23 05:06 Pulse Oximetry 97 11/16/23 05:06 Oxygen Delivery Method Room Air 11/16/23 05:06 Oxygen Flow Rate 0 11/16/23 05:06 Pain Level 7 11/16/23 05:30 Medical Decision Making 73yo M with hx HTN, DM, gout, lymphoma, presenting for neck spasm. Yesterday morning woke with his head in an odd position and noted right sided neck pain and stiffness, continues this morning now with difficulty turning his head. No falls or injuries. Systemically well. Vital signs reassuring on arrival, mild torticollis on exam and right cervical paraspinal tenderness and spasm. Not concerning for meningitis, fracture, cord compression, spinal epidural abscess, deep space neck infection, etc; despite known malignancy would not get labs or XR/CT imaging at this time with clear torticollis on exam and no midline tenderness . Pt took no medications at home because he is scheduled for a colonoscopy this morning. Will treat here wtih tyelnol, toradol, Valium, lidocaine patch. -On reassessment patient reports pain improved. Remains TTP with spasm though decreased in intensity. ROM improved. Discharged home with short course of diazepam; risks of reviewed including drowiness and increased falls. Discharge instructions and return precautions were reviewed with patient who verbalized understanding. All questions are answered and he is in full agreement with the plan. Quality:SDOH Health Related Social Needs: No Data to Display PFSH All Active Problems (Updated 11/16/23 @ 06:05 by Brittnee Tyson MD) Acute torticollis (Acute) Iron deficiency (Acute) History of lymphoma (Acute) Hematoma of arm (Acute) Superficial thrombophlebitis of left upper extremity (Acute) Pneumonia (Acute) C. difficile colitis (Acute) Hyponatremia (Acute) Hypokalemia (Acute) SIRS (systemic inflammatory response syndrome) (Acute) Rigors (Acute) Urinary retention (Acute) Thrombocytopenia (Chronic) Acute hypokalemia (Acute) Hemorrhoid thrombosis (Acute) B-cell lymphoma (Acute) Gout (Acute 12/24/07) Diabetes mellitus (Chronic 07/03/12) BS deterioration due to dietary indiscretion Medical History (Updated 11/16/23 @ 06:05 by Brittnee Tyson MD) Airway compromise Lymphoma Lymphadenopathy Pain Lymphadenitis Actinic keratosis Fracture of phalanx of finger SOBOE (shortness of breath on exertion) likely due to reduced 02 carrying capacity due to anemia Prostate cancer (10/05/14) 2015 radiation RX/lupron Polyp of colon tiny rectal hyperplastic polyp Overweight regular exercise/dietary discretion advised Nystagmus History of tobacco use Essential hypertension (12/27/12) Diverticulosis of colon without diverticulitis Cataract (07/03/12) Anemia EGD-HH, ESOPH INFLAMMATION; 11/25 COLO-DIVERTICULOSIS, TINY RECTAL POLYP c-scope 2012: hyperpl. polyp Family History Mother , AGE 38 Alcohol abuse Father , AGE 76 Diabetes Sister Diabetes Maternal Grandfather , age 80 Stroke Maternal Grandmother , age 88 Diabetes Social History Smoking/Tobacco Use Status: Former Tobacco Use Quit Date: 02/20/84 Smokeless tobacco user: chewing tobacco (former use) Second Hand Exposure: No Smoking risk assessment performed?: Yes Alcohol Intake: current Alcohol Intake frequency: a few times a month Alcohol type: beer Drug use: Never Substance use type: does not use Caregiver/Support person: No Household members: spouse Housing: apartment Communication Needs: Corrective Lenses Do you need help understanding health information?: Never Pets and animals: No Sexually active: No Do you think of yourself as: straight/heterosexual Current gender identity: male What is your relationship status?: How often do you talk on the phone with friends or family?: three or more times per week How often do you get together with friends or relatives?: three or more times per week How often do you attend presybeterian or anabaptism services?: 1-3 times per year Do you belong to any clubs or organized social groups?: yes Panel score (0-1 are the most socially isolated patients): 3 What type of physical activity do you participate in: walking and bicycling Duration: 60-90 minutes/day Frequency: 3-4 times per week Lily/Protestant: Zoroastrian Special lily needs: No Seatbelt use: always Helmet use: Yes Helmet use: always Drive intox or ride w/intox wrecking car driver: No Additional Social history: [employer]
--- OUTSIDE RECORDS SUMMARY | 2023-11-16 06:27 | XMS_ITS | Encounter Summary ---
Author Organization [facility] Address [facility] [place] [address] Care Team Providers Care Stock Pitcher Name Role Phone Frederick Meade MD Primary Care Provider [phone] Reason for Visit * Reason Onset Date Comments Medication Refill 11/07/2023 revlimid Encounter Details Date Type Department Care Team (Late st Contact Info) Description 11/07/2023 Telephone Hematology/Oncology at [address] [phone] Yael Merlos, KARLA [facility] [address] HEMATOLOGY [place] [address] Medication Refill (revlimid) Social History Tobacco Use Types Packs/Day [...] Telephone Encounter - Polly Orellana RN - 11/07/2023 3:32 PM EDT Prescriber online survey done 09/12/23 with the [employer] Revlimid [employer]S Program Revlimid Auth # [id number] Pt Survey done on 09/12/23 Prescription to be manually faxed to [employer] [phone] phone [phone] after obtaining signature Adrianne Ramon MD Script start date is around 11/21/23 Revlimid 20 mg daily X 21 Days/ 28 day cycle Pt is in medication compliance with above medication (aware of dose, frequency, route,name of drug,s+s of potential side effects). Aware of how to take oral chemo and aware to call clinic with questions or concerns Next refill 12/05/23 Next start date 12/19/23 documented in this encounter Plan of Treatment Upcoming Encounters Date Type Department Care Team (Late st Contact Info) Description 11/21/2023 9:30 AM EDT Office Visit Hematology/Oncology at [address] [phone] Adrianne Ramon MD [facility] [place] [id number] Yael Merlos, KARAL [facility] [place] [address] 11/21/2023 10:00 AM EDT Infusion Hematology Oncology at [address] [phone] 11/23/2023 11:00 AM EDT Office Visit Hematology and Oncology at [address] Reynold Proctor MD [facility] [place] [address] 11/23/2023 1:00 PM EDT Appointment Hematology and Oncology at [place] [id number] 11/23/2023 2:00 PM EDT Office Visit Hematology and Oncology at [address] Micha Givens Jr., MD [facility] [place] [address] 11/23/2023 3:30 PM EDT Hospital Encounter MRI at [place] [phone] Micha Givens Jr., MD [facility] [place] [address] documented as of this encounter Visit Diagnoses Diagnosis Diffuse large B-cell lymphoma of lymph nodes of multiple regions documented in this encounter Care Teams Stock Pitcher Relationship Specialty Start Date End Date Frederick Meade MD [address] [place] [address] PCP - General Family Medicine 11/29/17 documented as of this encounter
--- OUTSIDE RECORDS SUMMARY | 2023-11-16 06:27 | XMS_ITS | Encounter Summary ---
Author Organization [facility] Address [address] [place] [address] Care Team Providers Care State Trooper Name Role Phone Unavailable Primary Care Provider Unavailabl e Encounter Details Date Type Department Care Team (Late st Contact Info) Description 01/17/[address] [facility] Laboratory Services - [facility] ([facility]) [address] [place], [place] [id number] Andreas Temple MD [address] [place] [address] Social History Tobacco Use Types [...] ? CHEO MORFIN ? Accession #: ? [id number] ? : ? 1950 (Age: 61) ??M [...] specimens (A) and (B) were reviewed. ??(Dr. [place] Document reviewed and electronically signed by: DELROY [...] Temple MD PATHOLOGY ORDERABLES Performing Organization Address City/State/[facility] Co de Phone Number [facility] [address] [place] [address] documented in this encounter Visit Diagnoses Not on filedocumented in this encounter
--- OUTSIDE RECORDS SUMMARY | 2023-11-16 06:27 | XMS_ITS | Referral Summary ---
Author Organization [facility] Address [address] [place] [address] Care Team Providers Care Foreman/Project Manager Name Role Phone Bobby Headley MD Primary Care Provider [phone] Encounters Date Type Department Care Team Description 10/03/2023 Lab Requisition [facility] Pathology & Laboratory [address] [address] Outr Resulting Lab, Provider 09/26/2023 Lab Requisition [facility] Pathology & Laboratory [address] [address] Outr Resulting Lab, Provider 09/19/2023 Lab Requisition [facility] Pathology Laboratory [address] [address] Outr Resulting Lab, Provider from Last 3 [...] 610 - 1,616 mg/dL 10/04/2023 9:36 EDT [facility] IgA 92 85 - 499 mg/dL 10/04/2023 9:36 EDT [facility] IgM 118 35 - 242 mg/dL 10/04/2023 9:36 EDT [facility] Blood VENOUS BLOOD / Unknown 10/03/2023 9:10 EDT 10/03/2023 17:28 EDT Provider Outr Resulting Lab CHEMISTRY & BLOOD GAS ORDERABLES [facility] [address] [place] [address] from Last 3 Months Care Teams Foreman/Project Manager Relationship Specialty Start Date End Date Bobby Headley MD [address] [place] [phone] PCP - General 01/18/12
--- OUTSIDE RECORDS SUMMARY | 2023-11-16 06:27 | XMS_ITS | Encounter Summary ---
Author Organization [facility] Address [address] [place] [address] Care Team Providers Care Keypunch Operator Name Role Phone Bobby Headley MD Primary Care Provider [phone] Encounter Details Date Type Department Care Team (Latest Contact Info) Description 09/01/2014 13:19 EDT - 09/01/2014 23:59 EDT Hospital Encounter [address] [address] Unknown, Provider, Discharge Disposition: Home or Self Care Social History Tobacco Use Types Packs/Day Years Used Date Smoking Tobacco: Never Assessed Sex and Gender Information Value Date Recorded Sex Assigned at Not on file Gender Identity Not on file Sexual Orientation Not on file documented as of this encounter Discharge Disposition Disposition Code Departure Means Destination Home or Self Jail documented in this encounter Plan of Treatment Not on file documented as of this encounter Visit Diagnoses Not on filedocumented in this encounter Care Teams Keypunch Operator Relationship Specialty Start Date End Date Bobby Headley MD [address] [place] [id number] PCP - General 01/18/12 documented as of this encounter
--- OUTSIDE RECORDS SUMMARY | 2023-11-16 06:27 | XMS_ITS | Encounter Summary ---
Author Organization [facility] Address [address] [place] [address] Care Team Providers Care Remelt Sugar Boiler Name Role Phone Bobby Headley MD Primary Care Provider [phone] Encounter Details Date Type Department Care Team (Late st Contact Info) Description 09/01/2014 Results Only [facility] [phone] Tk Vergara MD [address] [place] [phone] Social History Tobacco Use Types Packs/Day Years [...] ? CHEO MORFIN ? Accession #: ? [id number] ? : ? 1950 (Age: 64) ??M [...] = 7 (60% 4) ? - Primary [place] pattern: ? Grade 4 ? - Secondary [place] pattern: ? Grade 3 ? - Total [...] William 09/03/2014 9:00 AM End of Report [facility] 09/01/2014 18:1 6 EDT 09/02/2014 18:16 EDT Tk Vergara MD PATHOLOGY ORDERABLES [facility] [address] [place] [address] documented in this encounter Visit Diagnoses Not on filedocumented in this encounter Care Teams Remelt Sugar Boiler Relationship Specialty Start Date End Date Bobby Headley MD [address] [place] [phone] PCP - General 01/18/12 documented as of this encounter
--- OUTSIDE RECORDS SUMMARY | 2023-11-16 06:27 | XMS_ITS | Encounter Summary ---
Author Organization [facility] Address [address] [place] [address] Care Team Providers Care Shrimp Peeling Machine Operator Name Role Phone Bobby Headley MD Primary Care Provider [phone] Encounter Details Date Type Department Care Team (Late st Contact Info) Description 03/11/2021 Lab Requisition [facility] Pathology & Laboratory Medicine - [address] [phone] Outr Resulting Lab, Provider Social History Tobacco [...] 0.0 - 6.5 ng/mL 03/11/2021 21:52 EST [facility] Blood VENOUS BLOOD / Unknown 03/11/2021 12:38 EST 03/11/2021 21:02 EST Narrative [facility] - 03/11/2021 21:52 EST NOTE: Serum PSA concentration should not be interpreted as absolute evidence for the presence or absence of malignant disease. Assayed on Siemens ADVIA TBi Connectaur XPT using chemiluminescent technology.??Values obtained by using different assay methods cannot be used interchangeably. Provider Outr Resulting Lab CHEMISTRY & BLOOD GAS ORDERABLES [facility] [address] [place] [address] documented in this encounter Visit Diagnoses Not on filedocumented in this encounter Care Teams Shrimp Peeling Machine Operator Relationship Specialty Start Date End Date Bobby Headley MD [address] [place] [phone] PCP - General 01/18/12 documented as of this encounter
--- OUTSIDE RECORDS SUMMARY | 2023-11-16 06:27 | XMS_ITS | Clinical Summary ---
Author Organization [facility] [place] [address] Care Team Providers Care Editor Managing Newspaper Name Role Phone Frederick Meade MD Primary Care Provider [phone] Allergies No known active allergies Medications Medication [...] times daily as needed for Diarrhea. Active loratadine (Claritin) 10 mg Tablet Take 10 mg by mouth daily. Active docusate sodium (Colace) 100 mg capsule Take 100 mg by mouth 2 times daily. Active insulin aspart protamine-insuli n aspart 70/30 (NovoLOG MIX 70/30) 100 unit/mL (70-30) Solution Inject subcutaneously daily. Active prochlorperazine (Compazine) 10 mg tablet Take 1 tablet by mouth every 6 hours as needed for Nausea. 30 tablet 3 11/05/2023 Active lenalidomide (Revlimid) 20 mg capsuleIndicatio ns:progressive diffuse large B-cell lymphoma Take 1 capsule (20 mg) by mouth daily for 21 days. Call clinic before starting medication. Indications: progressive diffuse large B-cell lymphoma 21 capsule 11/07/2023 11/28/2023 Active Active Problems Problem Noted Date Diagnosed Date Abnormal echocardiogram 11/20/2022 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 10/10/2022 Anemia, iron deficiency 08/21/2018 Gout 05/31/2017 Malignant neoplasm of prostate 09/01/2014 Encounters Date Type Department Care Team Description 11/07/2023 Telephone Hematology/Oncolog y at [address] [phone] Yael Merlos, PAGE TECHNICIAN Medication Refill (revlimid) 11/05/2023 Orders Only Hematology [place] [phone] Yael Merlos APRN 11/05/2023 Telephone Hematology/Oncolog y at [address] [phone] Tania Rosales RN Emesis 11/02/2023 Orders Only Hematology [place] [phone] Micha Givens Jr., MD Disorder of thyroid; Thyroid disorder screen; Blood coagulation defect; Encounter for pre-operative laboratory testing; Pre-op testing; At risk for chemotherapy-induced bleeding 10/24/2023 1:00 PM EDT Infusion Hematology Oncology at [address] [phone] Diffuse large B-cell lymphoma of lymph nodes of multiple regions 10/24/2023 Travel 10/22/2023 Orders Only Hematology [place] [phone] Adrianne Ramon MD 10/17/2023 1:00 PM EDT TH Visit (TeleHealth) Hematology/Oncolog y at [address] [phone] Adrianne Ramon MD Stearns, Diane M, PAGE TECHNICIAN Diffuse large B-cell lymphoma of lymph nodes of multiple regions 10/17/2023 Travel 10/15/2023 Orders Only Hematology Oncology at [address] [address] Lucía Nelson, RN Diffuse large B-cell lymphoma of lymph nodes of multiple regions 10/15/2023 Refill Hematology/Oncolog y at [address] [phone] Adrianne Ramon MD Diffuse large B-cell lymphoma of lymph nodes of multiple regions 10/11/2023 8:30 AM EDT Infusion Hematology Oncology at [address] [phone] Diffuse large B-cell lymphoma of lymph nodes of multiple regions 10/11/2023 Orders Only Hematology [place] [address] Micha Givens Jr., MD Diffuse large B-cell lymphoma of lymph nodes of multiple regions; Stem cell transplant candidate; Pre-op testing; Blood clotting disorder; Disorder of thyroid 10/11/2023 Notes Only Hematology/Oncolog y at [address] [phone] Shelley Cason, BUSINESS SEGMENT MANAGER 10/11/2023 Refill Hematology/Oncolog y at [address] [phone] Adrianne Ramon MD Diffuse large B-cell lymphoma of lymph nodes of multiple regions 10/10/2023 2:48 PM EDT - 10/10/2023 11:59 PM EDT Hospital En[place] [address] Diffuse large B-cell lymphoma of lymph nodes of multiple regions; Stem cell transplant candidate; Pre-op testing Discharge Disposition: Home 10/10/2023 2:29 PM EDT - 10/10/2023 2:47 PM EDT Hospital Encounter Non-[place] [address] Diffuse large B-cell lymphoma of lymph nodes of multiple regions; Stem cell transplant candidate; Pre-op testing Discharge Disposition: Home 10/10/2023 2:14 PM EDT - 10/10/2023 2:28 PM EDT Hospital Encounter XRay at [address] [place] [address] Micha Givens Jr., MD Diffuse large B-cell lymphoma of lymph nodes of multiple regions; Stem cell transplant candidate; Pre-op testing Discharge Disposition: Home 10/10/2023 1:04 PM EDT - 10/10/2023 2:13 PM EDT Hospital Encounter [place] [address] Discharge Disposition: Home 10/10/2023 Travel 10/10/2023 Orders Only Hematology Oncology at [address] [phone] Tania Rosales RN Diffuse large B-cell lymphoma of lymph nodes of multiple regions 10/04/2023 Telephone Hematology/Oncolog y at [address] [phone] Colt Ardon RN Follow-up (Re constipation ) 10/03/2023 10:30 AM EDT Infusion Hematology Oncology at [address] [phone] Diffuse large B-cell lymphoma of lymph nodes of multiple regions 10/03/2023 10:00 AM EDT Office Visit Hematology/Oncolog y at [address] [phone] Adrianne Ramon MD Stearns, Diane M, PAGE TECHNICIAN Diffuse large B-cell lymphoma of lymph nodes of multiple regions 10/03/2023 Travel 09/28/2023 Telephone Hematology/Oncolog y at [address] [phone] Colt Ardon RN [facility] 09/26/2023 8:30 AM EDT Infusion Hematology Oncology at [address] [phone] Diffuse large B-cell lymphoma of lymph nodes of multiple regions 09/26/2023 Unscheduled Encounter Hematology/Oncolog y at [address] [phone] Nimisha Hale, KVNG Diffuse large B-cell lymphoma of lymph nodes of multiple regions 09/26/2023 Notes Only Hematology and Oncology at [place] [phone] Yael Merlos, PAGE TECHNICIAN Hyperglycemia 09/26/2023 Travel 09/25/2023 10:00 AM EDT Telephone Hematology [place] [address] 09/25/2023 Orders Only Hematology [place] [address] Micha Givens Jr., MD Screening for colon cancer; Diffuse large B-cell lymphoma of lymph nodes of multiple regions; Stem cell transplant candidate; Pre-op testing 09/21/2023 10:51 AM EDT - 09/21/2023 11:59 PM EDT Hospital Encounter Hematology [place] [address] Diffuse large B-cell lymphoma of lymph nodes of multiple regions; Stem cell transplant candidate; Pre-op testing; Prostate cancer screening; Iron deficiency anemia, unspecified iron deficiency anemia type Discharge Disposition: Home 09/21/2023 10:30 AM EDT Clinical Support Hematology [place] [address] Danii Her, RN Diffuse large B-cell lymphoma of lymph nodes of multiple regions 09/21/2023 9:30 AM EDT Office Visit Hematology [place] [phone] Micha Givens Jr., MD Diffuse large B-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; Iron deficiency anemia, unspecified iron deficiency anemia type; Non-Hodgkin lymphoma of lymph nodes of multiple regions, unspecified non-Hodgkin lymphoma type 09/21/2023 Orders Only Hematology [place] [phone] Micha Givens Jr., MD Diffuse large B-cell lymphoma of lymph nodes of multiple regions; Stem cell transplant candidate; Pre-op testing; At high risk for bleeding; Prostate cancer screening; Iron deficiency anemia, unspecified iron deficiency anemia type 09/21/2023 Travel 09/20/2023 Orders Only Hematology [place] [phone] Micha Givens Jr., MD Diffuse large B-cell lymphoma of lymph nodes of multiple regions 09/19/2023 8:00 AM EDT Infusion Hematology Oncology at [address] [phone] Diffuse large B-cell lymphoma of lymph nodes of multiple regions 09/19/2023 Telephone Hematology/Oncolog y at [address] [phone] Polly Orellana RN Other (Prednisone taper ) 09/19/2023 Orders Only Hematology [place] [phone] Adrianne Ramon MD 09/19/2023 Orders Only Hematology [place] [phone] Yael Merlos, PAGE TECHNICIAN Diffuse large B-cell lymphoma of lymph nodes of multiple regions 09/19/2023 Telephone Hematology/Oncolog y at [address] [phone] Polly Orellana, OSCAR Follow-up (Possible free drug thru [facility]) 09/19/2023 Notes Only Hematology/Oncolog y at [address] [phone] Shelley Cason, FRANCISCO J 09/19/2023 Travel 09/14/2023 Telephone Hematology/Oncolog y at [address] [phone] Brenda Priest RN 09/13/2023 Telephone Hematology/Oncolog y at [address] [phone] Colt Ardon RN Other (Financial paperwork ) 09/12/2023 10:15 AM EDT Office Visit Hematology/Oncolog y at [address] [phone] Adrianne Ramon MD Stearns, Diane M, PAGE TECHNICIAN Diffuse large B-cell lymphoma of lymph nodes of multiple regions; High risk medication use 09/12/2023 Telephone Hematology/Oncolog y at [address] [phone] Polly Orellana, OSCAR New Medication Request (revlimid) 09/12/2023 Telephone Hematology/Oncolog y at [address] [phone] Adrianne Ramon MD 09/12/2023 Travel 09/06/2023 1:00 PM EDT - 09/06/2023 11:59 PM EDT Hospital Encounter [place] [address] Adrianne Ramon MD Discharge Disposition: Home 09/06/2023 12:59 PM EDT Hospital Encounter [place] [address] Adrianne Ramon MD Diffuse large B-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; Skin nodule Discharge Disposition: Home 09/06/2023 10:15 AM EDT - 09/06/2023 12:58 PM EDT Hospital [place] [phone] Adrianne Ramon MD Diffuse large B-cell lymphoma of lymph nodes of multiple regions; Skin nodule Discharge Disposition: Home 09/06/2023 9:48 AM EDT - 09/06/2023 10:14 AM EDT Hospital Encounter Hematology [place] [address] Diffuse large B-cell lymphoma of lymph nodes of multiple regions; Skin nodule Discharge Disposition: Home 09/06/2023 Travel 08/22/2023 12:30 PM EDT Office Visit Hematology/Oncolog y at [address] [phone] Adrianne Ramon MD Stearns, Diane M, PAGE TECHNICIAN Diffuse large B-cell lymphoma of lymph nodes [...] Sign Reading Time Taken Comments Blood Pressure 126/57 10/24/2023 12:53 PM EDT Pulse 62 10/24/2023 12:53 PM EDT Temperature 36.5 ??C (97.7 ??F) 10/24/2023 12:53 PM E DT Respiratory Rate 18 10/24/2023 12:53 PM EDT Oxygen Saturation 100% 10/24/2023 12:53 PM EDT Inhaled Oxygen Concentration - - Weight 87.1 kg (192 lb) 10/24/2023 12:53 PM EDT Height 168.1 cm (5' 6.18) 10/24/2023 12:53 PM E DT Body Mass Index 30.82 10/24/2023 12:53 PM EDT Plan of Treatment Upcoming Encounters Date Type Department Care Team (Late st Contact Info) Description 11/21/2023 9:30 AM EDT Office Visit Hematology/Oncology at [address] [phone] Adrianne Ramon MD [facility] [address] [place] [address] Yael Merlos APRN [facility] [place] [address] 11/21/2023 10:00 AM EDT Infusion Hematology Oncology at [address] [phone] 11/23/2023 11:00 AM EDT Office Visit Hematology [place] [address] Reynold Proctor MD [facility] [place] [address] 11/23/2023 1:00 PM EDT Appointment Hematology [place] [phone] 11/23/2023 2:00 PM EDT Office Visit Hematology [place] [phone] Micha Givens Jr., MD [facility] [place] [address] 11/23/2023 3:30 PM EDT Hospital [place] [phone] Micha Givens Jr., MD [facility] [place] [address] Health Maintenance Due Date Last Done Comments CT Colonography 1948 Colonoscopy 1948 Colorectal Cancer Screening 1948 FIT DNA 1948 FIT 1948 Sigmoidoscopy (10 year) with FIT yearly 1948 Sigmoidoscopy 1948 Lipid Screening 1966 Tetanus/Diphtheria/Pertussis Vaccines (1 - Tdap) 04/02 Zoster vaccine (1 of 2) 1998 Advance Directive 2003 AAA Screen 2013 Pneumoccocal Vaccine: 65+ (1 of 1 - PCV) 2013 Covid-19 Vaccine (1 - 2022-24 season) 2023 Influenza (Flu) vaccine (1 o f 1 - Influenza standard series) 10/21/2023 Hepatitis C Screening Completed 10/17/2022 Medical Devices Explanted Type Area Natural Sciences Professor Device Identifier Shelf Expiration Date Model / Serial / Lot Port Infusion 8fr Cath Power Injectable Lp 1lum Ct Ti ([id number]/29 /2023 Implanted:Qty: 1 on 10/17/2022 by Gail Jha PA Explanted:Qty: 1 on 03/29/2023 by Chalo Crews PA IMPLANTS Right: Chest Wall [employer] - CR BARD 03/21/2024 [id number] / / [id number] Procedures Procedure Name Priority Date/Time Associated Diagnosis Comments LAB SCAN 10/17/2023 12:00 AM EDT LAB SCAN 10/17/2023 12:00 AM EDT EXTERNAL CHEMISTRY LAB RESULTS Routine 10/17/2023 EXTERNAL HEMATOLOGY LAB RESULTS Routine 10/17/2023 LAB SCAN 10/11/2023 12:00 AM EDT COMMON [...] AM EDT TYPE AND SCREEN VALIDITY Routine 024 11:14 AM EDT ABORH RECHECK STATUS Routine 09/21/2023 11:14 AM EDT TYPE AND SCREEN ([facility]/MARCELINA) Routine 09/21/2023 11:14 AM EDT 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 Pre-op testing DIRECT ANTIGLOBULIN TEST Routine 024 11:14 AM EDT DIFFERENTIAL, AUTOMATED STAT 09/21/19 [...] 10:41 AM EDT DIFFERENTIAL, AUTOMATED STAT 09/06/19 24 10:12 AM EDT Diffuse large B-cell lymphoma [...] Recently Relevant to Health Maintenance Results * External Hematology Lab Results (10/17/2023) Only the most recent of2 resultswithin the time period is included. WBC - External 4.24 Hemoglobin - External 10.9 Hematocrit - External 33.9 Platelets - External 197 Neutr ABS (ANC) - External 2.61 10/17/2023 Historical Provider EXTERNAL LAB SALVADOR GARCIA * External Chemistry Lab Results (10/17/2023) Only the most recent of2 resultswithin the time period is included. Glucose Lvl - External 132 Creatinine - External 1.2 Potassium - External 4 Calcium - External 8.8 AST (SGOT) - External 19 ALT (SGPT) - External 36 LDH - External 185 10/17/2023 Historical Provider EXTERNAL LAB [facility]AD[facility] GARCIA * Scan Doc: Lab (10/17/2023 12:00 AM EDT) Only the most recent of15 resultswithin the time period is included. Narrative 10/17/2023 12:00 AM EDT Ordered by an unspecified [...] PFT FEV1/FVC Pre-BD Z-Score -2.14 COMPAS PFT YKQ13-15 Actual Pre-BD 1.11 % COMPAS PFT SCU26-09 Predicted 2 % COMPAS PFT FDB66-85 Pre-BD % of Predicted 56 % COMPAS PFT VPL74-68 Pre-BD Z-Score -1.17 COMPAS PFT DLCO Hb [...] emphysema. Micha Givens Jr., MD PFT ORDERABLES COMP PFT * EKG 12 Lead (10/10/2023 2:40 PM EDT) Ventricular rate 59 BPM MUSE SYSTEM Atrial Rate 59 BPM MUSE SYSTEM P-R Interval 158 ms MUSE SYSTEM QRS Duration 88 ms MUSE SYSTEM Q-T Interval 394 ms MUSE SYSTEM QTC Calculated (Bezet) 390 ms MUSE SYSTEM Calculated P [place] 67 degrees MUSE SYSTEM Calculated R [place] 32 degrees MUSE SYSTEM INTERPRETATION Sinus bradycardia Nonspecific ST abnormality Abnormal ECG No previous ECGs available Confirmed by MD Valderrama David ([id number]) on 10/14/2023 10:09:54 PM MUSE SYSTEM 10/10/2023 2:40 PM EDT 10/14/2023 10:09 PM EDT Micha Givens Jr., MD ECG ORDERABLES MUSE SYSTEM * XR Chest PA & Lateral (Generic) (10/10/2023 2:21 PM EDT) WORKSTATION ID [id number] RAD Anatomical Region Laterality Modality Chest N/A [...] cns that requested your imaging first. ? Electronically signed by: Davey Tolentino MD, [facility] ??([phone]), at 10/11/2023 11:50 AM Narrative 10/11/2023 11:50 [...] care cns that requested your imaging first. Electronically signed by: Davey Tolentino MD, [facility]([phone]), at 10/11/2023 11:50 AM Micha Givens Jr., MD IMG DX ORDERABLES * Blood Donor Serologic Testing (09/21/2023 11:14 AM EDT) Blood VENOUS BLOOD SPECIMEN / Unknown IP Care Team Draw / Unknown 09/21/2023 11:14 AM EDT 09/25/2023 4:30 PM EDT Micha Givens Jr., MD BLOOD BANK LAB ORDER DUONG [facility] [place] [address] * Type and Screen Validity (09/21/2023 11:14 AM EDT) Pathologist [facility] T&S only valid at [facility] LABORATORY Comment:This Type and Screen result is only valid at the [facility] Blood 09/21/2023 11:1 4 AM EDT 09/21/2023 11:31 AM EDT Narrative Resulting Agency Comment Spec In Lab Micha Givens Jr., MD BLOOD BANK LAB ORDER DUONG [facility] [place] [address] * Hemoglobin S Screen (09/21/2023 11:14 AM EDT) HGB S Screen Screen Negative Screen Negative [facility] Blood 09/21/2023 11:1 4 AM EDT 09/21/2023 11:30 AM EDT Narrative Resulting Agency Comment Spec In Lab Micha Givens Jr., MD HEMATOLOGY ORDERABLE S Performing Organization Address City/[facility]/ZIP Co de Phone Number [facility] [place] [address] * ABORH Recheck Status (09/21/2023 11:14 AM EDT) ABORH Recheck Order Order Placed [facility] ABORH Type Recheck not performed [facility] Blood 09/21/2023 11:1 4 AM EDT 09/21/2023 11:31 AM EDT Narrative Resulting Agency Comment Spec In Lab Micha Givens Jr., MD BLOOD BANK LAB ORDER DUONG Performing Organization Address City/[facility]/ZIP Co de Phone Number [facility] [place] [address] * (ABNORMAL) CRP, acute inflammation (09/21/2023 11:14 AM EDT) C-Reactive Protein 52.8(H) <=4.9 mg/L [facility] Blood 09/21/2023 11:1 4 AM EDT 09/21/2023 11:30 AM EDT Narrative Resulting Agency Comment Spec In Lab Micha Givens Jr., MD CHEMISTRY ORDERABLES Performing Organization Address City/[facility]/ZIP Co de Phone Number [facility] [place] [address] * PSA Screen (09/21/2023 11:14 AM EDT) [...] Jr., MD CHEMISTRY ORDERABLES Performing Organization Address [facility] Co de Phone Number [facility] [place] [address] * Calcium, Ionized, Serum (09/21/2023 11:14 AM EDT) Ionized Calcium 1.25 1.15 - 1.33 mmol/L [facility] Comment: Note: Total bilirubin higher than 20 mg/dL may lead to falsely low ionized calcium. This test has not been cleared by the [place] FDA. Performance characteristics of this test were determined by [facility] in accordance with CLIA requirements. This laboratory is qualified under CLIA to perform high-complexity testing. Blood 09/21/2023 11:1 4 AM EDT 09/21/2023 11:30 AM EDT Narrative Resulting Agency Comment Spec In Lab Micha Givens Jr., MD CHEMISTRY ORDERABLES Performing Organization Address [facility] Co de Phone Number [facility] [place] [address] * (ABNORMAL) Hemogram (09/21/2023 11:14 AM EDT) Only the most recent of2 resultswithin the time period is included. White Blood Cell 7.3 4.0 - 9.5 x10(3)/mc L [facility] Red Blood Cell 4.20(L) 4.58 - 5.54 x10(6)/mc L [facility] Hemoglobin 12.3(L) 13.7 - 16.5 g/dL [facility] Hematocrit 38.4(L) 40.5 - 48.5 % [facility] Mean Cell Volume 91.4 82.9 - 93.1 fL [facility] Mean Cell Hemoglobin 29.3 27.5 - 32.1 pg [facility] Mean Cell Hemoglobin Concentration 32.0 32.0 - 35.7 g/dL [facility] Platelet 152 145 - 357 x10(3)/mc L [facility] RDW Standard Deviation 48.4(H) 36.0 - 45.0 fL [facility] RDW coefficient of variation 14.5(H) 11.4 - 13.8 % [facility] Mean Platelet Volume 11.5 7.6 - 12.9 fL [facility] NRBC% auto 0.0 % [facility] NRBC Absolute 0.000 0.000 - 0.000 x10(3)/mc L [facility] Blood 09/21/2023 11:1 4 AM EDT 09/21/2023 11:30 AM EDT Narrative Resulting Agency Comment Spec In Lab Micha Givens Jr., MD HEMATOLOGY ORDERABLE S Performing Organization Address City/State/[facility] Co de Phone Number [facility] [place] [address] * (ABNORMAL) Differential, Automated (09/21/2023 11:14 AM EDT) Only the most recent of2 resultswithin the time period is included. Neutrophil % 90.8 % [facility] Neutrophil Absolute 6.59(H) 1.70 - 6.10 x10(3)/mc L [facility] Lymph % 5.1 % [facility] Lymphocytes Abs 0.4(L) 0.9 - 3.2 x10(3)/mc L [facility] Monocyte % 3.0 % [facility] Monocyte Abs 0.2(L) 0.3 - 0.9 x10(3)/mc L [facility] Eos % 0.4 % [facility] Eosinophils Abs 0.0 0.0 - 0.4 x10(3)/ L [facility] Basophil % 0.1 % [facility] Baso Absolute 0.0 0.0 - 0.1 x10(3)/mc L [facility] Immature Gran % 0.60 % [facility] Comment: Immature granulocytes(IG's)percentage and absolute count will include metamyelocytes, myelocytes, and promyelocytes. Blood smears from CBCs yielding IG's will be scanned manually for concordance. If this scan disagrees with the automated IG or if promyelocytes are noted, a manual differential will be performed. Immature Gran Absolute 0.04 0.00 - 0.04 x10(3)/ L [facility] Blood 09/21/2023 11:1 4 AM EDT 09/21/2023 11:30 AM EDT Narrative Resulting Agency Comment Spec In Lab Micha Givens Jr., MD HEMATOLOGY ORDERABLE S [facility] [place] [address] * HSV 1 and 2 IgG Antibodies (09/21/2023 11:14 AM EDT) Pathologist [facility] HSV Type 1 Ab, IgG Negative Negative [facility] HSV Type 2 Ab, IgG Negative Negative [facility] Blood 09/21/2023 11:1 4 AM EDT 09/21/2023 1:04 PM EDT Narrative Resulting Agency Comment Spec In Lab Micha Givens Jr., MD IMMUNOLOGY ORDERABLE S [facility] [place] [address] * (ABNORMAL) [place]-Pickett Virus Antibodies (09/21/2023 11:14 AM EDT) EBV (VCA) IgG Ab Positive(A) Negative M [facility] EBV (VCA) IgM Ab Negative Negative MAR Y [facility] EBNA Antibodies Positive(A) Negative MA [facility] EBV Interpretation Past EBV infection. CENTRAL [...] MD IMMUNOLOGY ORDERABLE S Performing Organization Address City/[facility]/ZIP Co de Phone Number [facility] [place] [address] * CMV Antibody, IgM (09/21/2023 11:14 AM EDT) CMV IgM Negative Negative [facility] Blood 09/21/2023 11:1 4 AM EDT 09/21/2023 1:04 PM EDT Narrative Resulting Agency Comment Spec In Lab Micha Givens Jr., MD IMMUNOLOGY ORDERABLE S Performing Organization Address City/[facility]/ZIP Co de Phone Number [facility] [place] [address] * (ABNORMAL) Iron and TIBC (09/21/2023 11:14 [...] CHEMISTRY ORDERABLES [facility] [place] [address] * Toxoplasma Antibody, IgM (09/21/2023 11:14 AM EDT) Toxoplasma Antibody IgM Negative Negative [facility] Blood 09/21/2023 11:1 4 AM EDT 09/21/2023 1:04 PM EDT Narrative Resulting Agency Comment Spec In Lab Micha Givens Jr., MD IMMUNOLOGY ORDERABLE S Performing Organization Address City/[facility]/ZIP Co de Phone Number [facility] [place] [address] * Toxoplasma Antibody, IgG (09/21/2023 11:14 AM EDT) Toxoplasma Antibody IgG Negative Negative [facility] Blood 09/21/2023 11:1 4 AM EDT 09/21/2023 1:04 PM EDT Narrative Resulting Agency Comment Spec In Lab Micha Givens Jr., MD IMMUNOLOGY ORDERABLE S Performing Organization Address City/[facility]/ZIP Co de Phone Number [facility] [address] * CMV Antibody, IgG (09/21/2023 11:14 AM EDT) CMV IgG Negative Negative [facility] Blood 09/21/2023 11:1 4 AM EDT 09/21/2023 1:04 PM EDT Narrative Resulting Agency Comment Spec In Lab Micha Givens Jr., MD IMMUNOLOGY ORDERABLE S [facility] [place] [address] * Type and screen ([facility]/MARCELINA) (09/21/2023 11:14 AM EDT) ABORH Type O NEGATIVE [facility] Patient BB History Not Found [facility] Expires at [id number] on: 09/24/2023 [facility] Ab Screen Interp Negative [facility] Blood 09/21/2023 11:1 4 AM EDT 09/21/2023 11:14 AM EDT Narrative [facility] - 09/21/2023 11:14 AM EDT This Type and Screen result is only valid at the [facility] Resulting Agency Comment Spec In Lab Micha Givens Jr., MD BLOOD BANK LAB ORDER DUONG [facility] [place] [address] * Direct antiglobulin test (09/21/2023 11:14 AM EDT) WILLIAN Poly Negative [facility] 09/21/2023 11:1 4 AM EDT 09/21/2023 11:14 AM EDT Micha Givens Jr., MD BLOOD BANK LAB ORDER DUONG Performing Organization Address City/[facility]/ZIP Co de Phone Number [facility] [place] [address] * Varicella zoster Antibody, IgG (09/21/2023 11:14 AM EDT) Varicella Zoster Antibody IgG Positive Positive [facility] Comment: A positive result for this assay is considered to be an indicator of positive immune status. Blood 09/21/2023 11:1 4 AM EDT 09/21/2023 1:04 PM EDT Narrative Resulting Agency Comment Spec In Lab Micha Givens Jr., MD IMMUNOLOGY ORDERABLE S [facility] [place] [address] * Uric acid (09/21/2023 11:14 AM EDT) Uric Acid 5.1 3.5 - 8.5 mg/dL [facility] Blood 09/21/2023 11:1 4 AM EDT 09/21/2023 11:30 AM EDT Narrative Resulting Agency Comment Spec In Lab Micha Givens Jr., MD CHEMISTRY ORDERABLES Performing Organization Address City/[facility]/ZIP Co de Phone Number [facility] [place] [address] * Phosphorus (09/21/2023 11:14 AM EDT) Phosphorus 2.9 2.5 - 4.5 mg/dL [facility] Blood 09/21/2023 11:1 4 AM EDT 09/21/2023 11:30 AM EDT Narrative Resulting Agency Comment Spec In Lab Micha Givens Jr., MD CHEMISTRY ORDERABLES Performing Organization Address City/[facility] Co de Phone Number [facility] [place] [address] * Magnesium (09/21/2023 11:14 AM EDT) Magnesium 0.80 0.69 - 1.07 mmol/L [facility] Blood 09/21/2023 11:1 4 AM EDT 09/21/2023 11:30 AM EDT Narrative Resulting Agency Comment Spec In Lab Micha Givens Jr., MD CHEMISTRY ORDERABLES Performing Organization Address City/[facility] Co de Phone Number [facility] [place] [address] * (ABNORMAL) Lactate Dehydrogenase (09/21/2023 11:14 AM EDT) Only the most recent of2 resultswithin the time period is included. Lactate Dehydrogenase 426(H) 110 - 220 unit/L [facility] Blood 09/21/2023 11:1 4 AM EDT 09/21/2023 11:30 AM EDT Narrative Resulting Agency Comment Spec In Lab Micha Givens Jr., MD CHEMISTRY ORDERABLES Performing Organization Address City/[facility]/ZIP Co de Phone Number [facility] [place] [address] * Ferritin (09/21/2023 11:14 AM EDT) Pathologist [facility] Ferritin 393 31 - 409 ng/mL [facility] Comment: Please note that as of 01/24/2023, the reference intervals for Ferritin have been updated. Blood 09/21/2023 11:1 4 AM EDT 09/21/2023 11:30 AM EDT Narrative Resulting Agency Comment Spec In Lab Micha Givens Jr., MD CHEMISTRY ORDERABLES Performing Organization Address [facility] Co de Phone Number [facility] [place] [address] * (ABNORMAL) Comprehensive metabolic panel (non-fasting) (09/21/2023 11:14 AM EDT) Only the most recent of3 resultswithin the time period is included. Glucose 326(H) 65 - 199 mg/dL [facility] [...] CHEMISTRY ORDERABLES [facility] [place] [address] * Urinalysis with reflex Culture (09/21/2023 11:11 [...] CENTER [facility] Leukocytes, Urine Dipstick Negative Negative [facility] Appearance, Urine Dipstick Clear Clear [facility] Specific [place] Urine Automated 1.009 1.005 - 1.030 [facility] Color, Urine Dipstick Yellow Yellow [facility] Reflex to Culture No [facility] Clean Catch Urine 09/21/2023 11:11 AM EDT 09/21/2023 11:33 AM EDT Narrative Resulting Agency Comment Spec In Lab Micha Givens Jr., MD URINE ORDERABLES [facility] [place] [place] [address] * Scan Doc: Echo (09/17/2023 12:00 AM EDT) Anatomical Region Laterality Modality Cardiac Other Narrative 09/17/2023 12:00 AM EDT Ordered by an unspecified provider. Scanning Provider MEDIA MGR SCAN EXT O RDR/RSLT * NM PET CT Standard Plus Extremities and Head (09/06/2023 2:45 PM EDT) WORKSTATION ID [id number] RAD Anatomical Region Laterality Modality Positron Emissio [...] unspecified. TECHNIQUE: Procedure: Following IV injection of 26-zuprxs-0-deoxyglucose (FDG) a standard uptake of approximately 60 [...] unspecified. TECHNIQUE: Procedure: Following IV injection of 08-wxwiiy-5-deoxyglucose(FDG) a standard uptake of approximately 60 minutes, [...] care cns that requested your imaging first. Adrianne Ramon MD IMG PET ORDERABL ES * POCT Glucose (09/06/2023 1:06 PM EDT) Only the most recent of2 resultswithin the time period is included. Glucose, POC 98 65 - 199 mg/dL [facility] Comment: Supplemental ranges: <140 mg/dL before meals <180 mg/dL all other times of the day Blood 09/06/2023 1:06 PM EDT 09/06/2023 1:06 PM EDT Adrianne Ramon MD POINT OF CARE TE ST ORDERABLES [facility] [place] [address] * IR Biopsy Lymph Node (Chest/Abdomen/Pelvis) (09/06/2023 [...] period is included. Immunophenotyping Flow See Comment [facility] Comment: When completed by the Pathologist, the Flow Cytometry Report ([id number]) will display under the Pathology Results section within eDH. Other 09/06/2023 12:2 8 PM EDT 09/06/2023 12:47 PM EDT Narrative Resulting Agency Comment Spec In Lab Micha Pearl MD HEMATOLOGY ORDERABLE S [facility] [place] [id number] * Flow Cytometry Report (09/06/2023 12:28 PM EDT) Only the most recent of2 resultswithin the time period is included. Flow Cytometry Report [id number] ? Location: 3 The signing pathologist has (i) examined the relevant preparation(s) for the specimen(s) and (ii) rendered or confirmed the diagnosis(es). . ?Flow Cytometry DIAGNOSIS ? 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 See comment. Electronically signed by: ?Dana OCASIO, Filemon Verified: ??09/10/2023 15:05 ??Hematopathologist Performed at: ??-[facility] Dept. of Pathology, [place] [address] Tapper Supervisor: Katherine Lopez MD, FCAP, ??CLIA Certificate: [id number] DISCUSSION The T-lymphocytes , B- lymphocytes and [...] by the Clinical Flow Cytometry Laboratory at [facility]. It has not been cleared or [...] high complexity clinical laboratory testing. SPECIMEN PROCESSING [id number] Cells for immunophenotypic analysis were derived from LEFT AUX LYMPH NODE. CD45 vs side scatter gating was utilized to identify a LYMPHOID analysis region that comprises approximately 95-97% of all cells. The following markers were assessed: CD2, CD3, CD4, CD5, CD7, CD8, CD10, CD19, CD20, CD23, CD38, CD45, CD56, FMC-7, kappa light chain, and lambda light chain. CLINICAL INFORMATION dlbcl [facility] 09/06/2023 12:2 8 PM EDT Micha Pearl MD PATHOLOGY/CYTOLOGY O RDERABLES [facility] [place] [address] * chromo report acquired (09/06/2023 11:35 AM EDT) Pathologist [facility] Cytogenetics Acquired Report Final Report ? [id number] Specimen Type: Fixed Tissue Specimen Condition: 1 [...] using dual-color, break-apart probes for MYC/8q24 rearrangement ([employer] shows 0% of 100 cells with [...] using dual-color break-apart probes for BCL2/18q21 rearrangement ([employer] shows 0% of 100 cells with [...] its performance characteristics were determined by the [facility] ([facility]) Cytogenetics Laboratory as required [...] the test? s accuracy and precision. The [facility] Cytogenetics Laboratory is certified under the CLIA? 88 as qualified to perform high complexity clinical laboratory testing. Chromosome alterations outside the regions complementary to these DNA FISH probes will not be detected. 09.20.23 (Electronic Signature) Verified By: Channing Ph.D., FAC, Tommy Loja Clinical Pediatric Anesthesiologist/Mol ecular Windrower Operator [facility] 09/06/2023 11:3 5 AM EDT 09/11/2023 8:57 AM EDT James Champion DO HEMATOLOGY ORDERABLE S [facility] [place] [address] * (ABNORMAL) Surgical Pathology Report (09/06/2023 11:35 AM EDT) Surgical Pathology Report [id number] ? Location: [facility] The signing pathologist has (i) examined [...] Filemon Verified: ??09/10/2023 18:38 ??Hematopathologist Performed at: ??-[facility] Dept. of Pathology, [place] [address] Tapper Supervisor: Katherine Lopez MD, AP, ??CLIA Certificate: [id number] SYNOPTIC THIS RESULT REQUIRES PHYSICIAN/A.P.P. FOLLOW UP [...] lymphoid neoplasms . Blood . 2016. 127 (20):[id number]. Rafael CP et al . Blood 103:275-282 [...] submitted in 2 cassettes labeled B1-B2. ??CCP(A) [facility] 09/06/2023 11:3 5 AM EDT James Champion DO PATHOLOGY/CYTOLOGY O RDERABLES [facility] [place] [address] * Anaerobic Culture (09/06/2023 11:25 AM EDT) Anaerobic Culture No anaerobic organisms isolated [facility] Arm 09/06/2023 11:2 5 AM EDT 09/06/2023 12:21 PM EDT Comment:Left Arm Collection versus mass Narrative Resulting Agency Comment Spec In Lab James Champion DO MICROBIOLOGY - GENER AL ORDERABLES Performing Organization Address [facility] Co de Phone Number [facility] [place] [address] * AFB culture (09/06/2023 11:25 AM EDT) Acid Fast Bacilli Culture No Acid Fast Bacilli isolated [facility] Acid Fast Stain No Acid Fast Bacilli seen [facility] Other 09/06/2023 11:2 5 AM EDT 09/06/2023 12:21 PM EDT Comment:Left Arm Collection versus Mass Narrative Resulting Agency Comment Spec In Lab James Champion DO MICROBIOLOGY - GENER AL ORDERABLES Performing Organization Address [facility] Co de Phone Number [facility] [place] [address] * Calcofluor White Stain (09/06/2023 11:25 AM EDT) Calcofluor Stain Calcofluor White Preparation: Negative [facility] Other 09/06/2023 11:2 5 AM EDT 09/06/2023 12:21 PM EDT Comment:Left Arm Collection versus Mass Narrative Resulting Agency Comment Spec In Lab James Champion DO MICROBIOLOGY - GENER AL ORDERABLES Performing Organization Address City/[facility] Co de Phone Number [facility] [place] [address] * Tissue culture (09/06/2023 11:25 AM EDT) Tissue Culture No growth [facility] Gram Stain Few Neutrophils seen No microorganisms seen. [facility] Arm 09/06/2023 11:2 5 AM EDT 09/06/2023 12:21 PM EDT Comment:Left Arm Collection versus mass Narrative Resulting Agency Comment Spec In Lab James Champion DO MICROBIOLOGY - GENER AL ORDERABLES Performing Organization Address [facility] Co de Phone Number [facility] [place] [address] * Fungus culture (09/06/2023 11:25 AM EDT) Fungus Culture No Fungus isolated [facility] Other 09/06/2023 11:2 5 AM EDT 09/06/2023 12:21 PM EDT Comment:Left Arm Collection versus Mass Narrative Resulting Agency Comment Spec In Lab James Champion DO MICROBIOLOGY - GENER AL ORDERABLES Performing Organization Address [facility] de Phone Number [facility] [place] [address] * Specimen to Pathology (09/06/2023 11:20 AM EDT) Only the most recent of2 resultswithin the time period is included. AP Specimen 09/06/2023 11:2 0 AM EDT 09/06/2023 11:20 AM EDT Narrative [facility] - 09/06/2023 11:20 AM EDT Specimen requisition ordered. ??Separate Pathology report to follow James Chapmion DO PATHOLOGY/CYTOLOGY O RDLOGAN Performing Organization Address [facility] Co de Phone Number [facility] [place] [address] * Cytopathology Non-Gynecological (09/06/2023 10:41 AM EDT) AP Specimen 09/06/2023 10:4 1 AM EDT 09/06/2023 10:41 AM EDT Narrative [facility] - 09/06/2023 10:41 AM EDT Specimen requisition ordered. ??Separate Pathology report to follow Micha Pearl MD PATHOLOGY/CYTOLOGY O RDERABLES [facility] [place] [address] * Blood culture (09/06/2023 10:12 AM EDT) Blood Culture No growth at 5 days. [facility] Blood ANTECUBITAL REGION STRUCTURE / Unknown 09/06/2023 10:12 AM EDT 09/06/2023 10:31 AM EDT Comment:Peripheral culture Narrative Resulting Agency Comment Spec In Lab Adrianne Ramon MD MICROBIOLOGY - B LOOD ORDERABLES Performing Organization Address [facility] Co de Phone Number [facility] [place] [address] * CBC (with Diff) (08/22/2023) White Blood Cell 8.12 Hemoglobin 13.2 Hematocrit 38.4 Platelet 199 Neutrophil Absolute (ANC) - Automated 6.02 Blood 08/22/2023 Historical Provider HEMATOLOGY ORDERA BLES * Hepatitis C Antibody (10/17/2022 11:45 AM EDT) Pathologist [facility] Hepatitis C Antibody Negative Negative [facility] Blood 10/17/2022 11:4 5 AM EDT 10/17/2022 12:08 PM EDT Narrative Resulting Agency Comment Spec In Lab Adrianne Ramon MD CHEMISTRY ORDERA BLES Performing Organization Address City/[facility]/ZIP Co de Phone Number [facility] [place] [address] from Last 3 Months or Most Recently Relevant to Health Maintenance Advance Directives Documents on File Type Date Recorded Patient Delivery Architect Expl anation POLST/COLST (Order for Life Sustaining [...] Status decision made by: Patient Care Teams Editor Managing Newspaper Relationship Specialty Start Date End Date Frederick Meade MD [address] [place] [address] PCP - General Family Medicine 11/29/17
--- OUTSIDE RECORDS SUMMARY | 2023-11-16 06:27 | XMS_ITS ---
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 Treatments may have been administered [...] Biopsy 09/01/2014 Volume in cc 15 cc [place] grade/score a+b=c 4+3=7-- intermediate risk prostate cancer [...] Potential late effects of treatment(s): Late and exterminator helper termite effects or radiation therapy to the prostate [...] Findings and based on age. Nutrition--Follow the [place] [employer] Guidelines that include the following: [...] Helpful websites www. cancer. gov National Cancer [place] www.nccn.org National Comprehensive Cancer Network www.canceradvocacy.org National Coalition for Cancer Survivorship www.livestrong.org Livestrong Survivor Care www.acsn.org Cancer Survivors Network Anna Carr APRN- Radiation Oncology Adapted from [place] [employer] of Clinical Oncology 2008 Cancer Treatment Plan Summary Survivorship care provider contacts PATIENT SUPPORT ASSISTANT: Anna Carr
--- OUTSIDE RECORDS SUMMARY | 2023-11-16 06:27 | XMS_ITS | Encounter Summary ---
Author Organization [facility] Address [address] [place] [address] Care Team Providers Care Division Controller Name Role Phone Bobby Headley MD Primary Care Provider [phone] Encounter Details Date Type Department Care Team (Late st Contact Info) Description 10/06/2022 Lab Requisition [facility] Pathology & Laboratory Medicine - [facility] [address] [place] [address] Lg Ramírez MD [address] [place] [phone] Generalized enlarged lymph nodes Social History [...] Diffuse Large B-Cell Lymphoma. 10/17/2022 13:09 EDT [facility] Addendum electronically signed by Dedrick Quintanilla MD on 10/17/2022 at 1309 Note to Patient The following pathology results have been interpreted by your pathologist and may be available to you before your health provider has had the opportunity to review them. Please allow time for your provider to receive these results and explore management options, if applicable. 10/17/2022 13:09 [facility] Final Diagnosis A. Tongue base, left: -Large B-cell lymphoma, incompletely classified. See comment. 10/17/2022 13:09 [facility] Diagnosis Comment The findings are those of a large B-cell lymphoma that exhibits a non-germinal center immunophenotype and expresses Myc and BCL-2 protein ([employer] Flow cytometry ([id number]) supports this interpretation. The differential classification of this lesion is diffuse large B-cell lymphoma versus high grade B-cell lymphoma with MYC and BCL-2 rearrangement. Material has been sent to [facility] to assess the status of these genes by FISH and an addendum report with a definitive classification will be issued upon receipt of the result. 10/17/2022 13:09 [facility] Attestation By the signature below, the attending physician certifies that they have 1) personally conducted a gross and/or microscopic examination of the described specimen(s), and/or personally interpreted the results of laboratory testing of the described specimen(s), and 2) personally rendered or confirmed the above diagnosis. 10/17/2022 13:09 [facility] at 1210 Microscopic Description There is a diffuse proliferation of large B-cells below the squamous epithelium. Nuclei are large, oval, and and often contain multiple small nucleoli. Scattered small lymphocytes are present. CD3 (SP7, [employer]) Background T-cells CD20 (L26, [place]) diffusely positive in Neoplastic B-cells PAX-5 (1EW, [employer]) diffusely positive in Neoplastic B-cells CD10 (SP67, [place]) Negative BCL-6 (G/191E/A8, [place]) Positive MUM-1 (MUM1p, [employer]) Positive Myc (Y69, [employer]) Positive BCL-2 Oncoprotein (124, [place]) Positive Ki67 (MIB-1) (K2, [employer]) Greater than 95% of cells in cycle Cyclin D1(SP4-R, [place]) Negative SAPPHIRE JOSE (QOX4956-U, [employer]) Negative. 10/17/2022 13:09 EDT [facility] Clinical History Massive LAD, history of prostate cancer; clinical diagnosis code: R59.1 10/17/2022 13:09 EDT [facility] Gross Description A. Received in formalin labelled with proper patient identification (initials D, D) and left tongue base are multiple pale plasencia irregular soft tissue fragments which measure 0.8 x 0.6 x 0.5 cm in aggregate and are submitted in toto in A1. TAHMINA NELSON(ASCP) 10/06/2022 15:22 10/17/2022 13:09 EDT [facility] Performing Lab [facility] 13:09 EDT [facility] Scanned Images 10/17/2022 13:09 EDT [facility] Tissue TONGUE STRUCTURE / Unknown 10/05/2022 8:00 EDT 10/06/2022 8:28 EDT Lg Ramírez MD PATHOLOGY ORDERABLES [facility] [address] [place] [address] documented in this encounter Visit Diagnoses Diagnosis Generalized enlarged lymph nodes Enlargement of lymph nodes documented in this encounter Care Teams Division Controller Relationship Specialty Start Date End Date Bobby Headley MD [address] [place] [id number] PCP - General 01/18/12 documented as of this encounter
--- OUTSIDE RECORDS SUMMARY | 2023-11-16 06:27 | XMS_ITS | Encounter Summary ---
Author Organization [facility] Address [facility] [place] [address] Care Team Providers Care Clinical Psychology Professor Name Role Phone Frederick Meade MD Primary Care Provider [phone] Reason for Visit * Reason Comments Chemotherapy [id number] rituxan * Treatment/Therapy Plan Authorization (Routine) - Authorized Specialty Diagnoses / Procedures Referred By Contac t Referred To Contact Hematology and Oncology Diagnoses Diffuse large B-cell lymphoma of lymph nodes of multiple regions Adrianne Ramon MD [facility] [place] [address] Stj Hem Onc Infusion [address] [place] [phone] Referral ID Status Reason Start Date Expiration Date V isits Requested Visits Authorized [id number] Authorized 10/16/2023 10/15/2024 99 99 Encounter Details Date Type Department Care Team (Late st Contact Info) Description 10/24/2023 1:00 PM EDT Infusion Hematology Oncology at [address] [address] Diffuse large B-cell lymphoma [...] Mass Index 30.82 10/24/2023 12:53 PM EDT documented in this encounter Progress Notes * Ioana Jules RN - 10/24/2023 1:00 PM EDT INFUSION THERAPY ADMINISTRATION NOTES DIAGNOSIS: DLBCL CYCLE #: C1D1 REASON FOR VISIT: Monthly Rituxan + revlimid SUBJECTIVE Cheo offers no complaints. OBJECTIVE LAB DATA: completed today at [facility] adequate for treatment IV ACCESS: PIV Pre administration: Chemotherapy orders independently verified for drug name, route, and dosage per patient's height, weight and BSA by Ioana Jules RN and pharmacist onsite. REACTIONS (DESCRIPTION, TIME, INTERVENTION AND EFFECTIVENESS) none ASSESSMENT Rituxan administered at rapid rate per MD note. Cheo was awake, alert and he tolerated treatment well. PLAN Return to clinic per routine. documented in this encounter Plan of Treatment Upcoming Encounters Date Type Department Care Team (Late st Contact Info) Description 11/21/2023 9:30 AM EDT Office Visit Hematology/Oncology at [address] [address] Adrianne Ramon MD [facility] [address] [place] [address] Yael Merlos, TRADE MARK EXAMINER [facility] [address] [place] [address] 11/21/2023 10:00 AM EDT Infusion Hematology Oncology at [address] [address] 11/23/2023 11:00 AM EDT Office Visit Hematology [place] [address] Reynold Proctor MD [facility] [place] [address] 11/23/2023 1:00 PM EDT Appointment Hematology [place] [address] 11/23/2023 2:00 PM EDT Office Visit Hematology [place] [address] Micha Givens Jr., MD [facility] [place] [address] 11/23/2023 3:30 PM EDT Hospital [place] [address] Micha Givens Jr., MD [facility] [place] [address] documented as of this encounter Visit Diagnoses Diagnosis Diffuse large B-cell lymphoma of lymph nodes of multiple regions documented in this encounter Administered Medications Inactive Administered Medications - up to 3 most recent administrations Medication Order MAR Action Action Date Dose Rate Site acetaminophen (Tylenol) tablet 650 mg 650 mg, Oral, ONCE, 1 dose, On Sun10/24/23 at 1330, Administer prior to riTUXimab., Routine Given 10/24/2023 1:28 PM EDT 650 mg dexAMETHasone (Decadron) tablet 4 mg 4 mg, Oral, ONCE, 1 dose, On Sun10/24/23 at 1400, Administer prior to riTUXimab, Routine Given 10/24/2023 1:28 PM EDT 4 mg diphenhydrAMINE (Benadryl) capsule 25 mg 25 mg, Oral, ONCE, 1 dose, On Sun10/24/23 at 1330, Administer prior to riTUXimab, Routine Given 10/24/2023 1:28 PM EDT 25 mg riTUXimab-pvvr (Ruxience) 700 mg in sodium chloride 0.9% 350 mL infusion 700 mg (rounded from 761.25 mg = 375 mg/m2/dose ? 2.03 m2 Treatment Plan BSA from Recorded weight), Intravenous, ONCE, 1 dose, On Sun10/24/23 at 1430, Administer Per Protocol, Is this product being used for treatment of malignant indication? Yes, Patient is a candidate for rapid infusion riTUXimab? Yes New Bag 10/24/2023 2:00 PM EDT 700 mg documented in this encounter Care Teams Clinical Psychology Professor Relationship Specialty Start Date End Date Frederick Meade MD [address] [place] [address] PCP - General Family Medicine 11/29/17 documented as of this encounter
--- OUTSIDE RECORDS SUMMARY | 2023-11-16 06:27 | XMS_ITS | Encounter Summary ---
Author Organization [facility] Address [address] [place] [address] Care Team Providers Care Scrapper Name Role Phone Unavailable Primary Care Provider Unavailabl e Encounter Details Date Type Department Care Team (Late st Contact Info) Description 08/24/1999 Results Only [facility] conversion [address] [place] [address] Micha Pineda MD [address] [place] [phone] Social History Tobacco Use Types Packs/Day Years [...] ? CHEO MORFIN ? Accession #: ? [id number] ? : ? 1950 (Age: 49) ??M ? Collect Date: ? 08/24/1999 ? Location: ? [facility] ? Receive Date: ? 08/24/1999 ? Provider: RHYS PINEDA MD Copy to: MARY HEWITT MD ? Final Pathologic Diagnosis: ? Colon, left transverse (80 cm), biopsies: - Hyperplastic polyp. Document reviewed and electronically signed by: Tresa Waite [facility] Report ??Date: 08/26/1999 16:44 By the [...] MD PATHOLOGY ORDERABLES [facility] [address] [place] [address] documented in this encounter Visit Diagnoses Not on filedocumented in this encounter
--- OUTSIDE RECORDS SUMMARY | 2023-11-16 06:27 | XMS_ITS | Encounter Summary ---
Author Organization [facility] Address [facility] [place] [address] Care Team Providers Care Nutrition Professor Name Role Phone Frederick Meade MD Primary Care Provider [phone] Reason for Visit * Reason Onset Date Comments Emesis 11/05/2023 Encounter Details Date Type Department Care Team (Late st Contact Info) Description 11/05/2023 Telephone Hematology/Oncology at [address] [address] Tania Rosales RN Emesis Social History Tobacco Use Types Packs/Day Years [...] Telephone Encounter - Tania Rosales RN - 11/05/2023 3:30 PM EDT Let Claritza know a prescription for antinausea is being sent to [facility] in [facility]. Keep up with fluid and nutrition intake as previously discussed. Instructed to call if the nausea/vomiting does not resolve or gets worse. Claritza expressed understanding and is in agreement with the plan. * Telephone Encounter - Tania Rosales RN - 11/05/2023 1:41 PM EDT Caller: Cheo and Claritza Relationship: Self Clarified Two Patient Identifiers: [x] Reason For Call: Emesis Assessment/Symptom Review (onset, location, duration, what makes it better or worse, pertinent positives and negatives): Cheo reports nausea and vomiting that started last evening. He took his revlemid last night and vomited 2 hrs later. This morning he at breakfast without issue, but vomited again after lunch. He reports intermittent nausea, he is having normal bowel movements. He does not have any antiemetics prescribed, they are wondering if this is from the Revlimid. Review of Systems Related to Reason for Call: System POS NEG Not Applicable Head (ENT /Neuro) [] [] [x] Cardiac [] [] [x] Respiratory [] [] [x] GI [x] [] [] [] [x] [] Musculoskeletal [] [x] [] Integumentary [] [x] [] Mental Health [] [x] [] Select Specific Decision Support Tool Used: Telephone Triage for Oncology Nurses, 3rd Edition, ONC,Dominga and Rogelio, 2019 Name of Guideline/Protocol Used: Nausea and Vomiting Disposition/Plan of Care: Follow home care directions east small amounts of food frequently, frequent small sips of fluids Patient/Caregiver verbalizes understanding of plan of care: Yes Patient/Caregiver agrees with plan: Yes Advised patient/caregiver to: call office back for any new or worsening symptoms Patient/Caregiver demonstrates understanding via teach back: Yes documented in this encounter Plan of Treatment Upcoming Encounters Date Type Department Care Team (Late st Contact Info) Description 11/21/2023 9:30 AM EDT Office Visit Hematology/Oncology at [address] [address] Adrianne Ramon MD [facility] DR [place] [address] Yael Merlos, KARLA [facility] [address] [place] [address] 11/21/2023 10:00 AM EDT Infusion Hematology Oncology at [address] [phone] 11/23/2023 11:00 AM EDT Office Visit [place]ematology [place] [address] eRynold Proctor MD [facility] [place] [address] 11/23/2023 1:00 PM EDT Appointment Hematology [place] [address] 11/23/2023 2:00 PM EDT Office Visit [place]ematology [place] [address] Micha Givens Jr., MD [facility] DR [place] [address] 11/23/2023 3:30 PM EDT [place] [address] Micha Givens Jr., MD [facility] [place] [address] documented as of this encounter Visit Diagnoses Not on filedocumented in this encounter Care Teams Nutrition Professor Relationship Specialty Start Date End Date Frederick Meade MD [address] [place] [address] PCP - General Family Medicine 11/29/17 documented as of this encounter
--- OUTSIDE RECORDS SUMMARY | 2023-11-16 06:27 | XMS_ITS | Encounter Summary ---
Author Organization [facility] Address [address] [place] [address] Care Team Providers Care Public Relations Analyst Name Role Phone Bobby Headley MD Primary Care Provider [phone] Encounter Details Date Type Department Care Team (Late st Contact Info) Description 03/22/2022 Lab Requisition [facility] Pathology & Laboratory Medicine - [facility] [address] [place], [place] [id number] Outr Resulting Lab, Provider Social History Tobacco [...] PSA <0.1 <=6.5 ng/mL 03/22/2022 23:03 EST [facility] Blood VENOUS BLOOD / Unknown 03/22/2022 9:35 EST 03/22/2022 21:50 EST Narrative [facility] - 03/22/2022 23:03 EST NOTE: Serum PSA concentration should not be interpreted as absolute evidence for the presence or absence of malignant disease. Assayed on Siemens ADVIA [employer] XPT using chemiluminescent technology.??Values obtained by using different assay methods cannot be used interchangeably. Provider Outr Resulting Lab CHEMISTRY & BLOOD GAS ORDERABLES [facility] [address] [place] [address] documented in this encounter Visit Diagnoses Not on filedocumented in this encounter Care Teams Public Relations Analyst Relationship Specialty Start Date End Date Bobby Headley MD [address] [place] [phone] PCP - General 01/18/12 documented as of this encounter
--- OUTSIDE RECORDS SUMMARY | 2023-11-16 06:27 | XMS_ITS | Encounter Summary ---
Author Organization [facility] Address [address] [place] [address] Care Team Providers Care Rock Cutter Name Role Phone Bobby Headley MD Primary Care Provider [phone] Encounter Details Date Type Department Care Team (Late st Contact Info) Description 03/10/2019 Lab Requisition [facility] Pathology & Laboratory Medicine - [facility] [address] [place] [address] Unknown, Provider, Social History Tobacco Use Types [...] 0.0 - 6.5 ng/mL 03/11/2019 10:56 EST [facility] Blood VENOUS BLOOD / Unknown 03/10/2019 9:05 EST 03/10/2019 15:40 EST Narrative [facility] - 03/11/2019 10:56 EST NOTE: Serum PSA concentration should not be interpreted as absolute evidence for the presence or absence of malignant disease. Assayed on Siemens ADVIA [employer]aur XPT using chemiluminescent technology.??Values obtained by using different assay methods cannot be used interchangeably. Provider Unknown CHEMISTRY & BLOOD GA S ORDERABLES [facility] [address] [place] [address] documented in this encounter Visit Diagnoses Not on filedocumented in this encounter Care Teams Rock Cutter Relationship Specialty Start Date End Date Bobby Headley MD [address] [place] [address] PCP - General 01/18/12 documented as of this encounter
--- OUTSIDE RECORDS SUMMARY | 2023-11-16 06:27 | XMS_ITS | Encounter Summary ---
Author Organization [facility] Address [address] [place] [address] Care Team Providers Care Ophthalmic Nurse Name Role Phone Bobby Headley MD Primary Care Provider Encounter Details Date Type Department Care Team (Late st Contact Info) Description 10/06/2022 Lab Requisition [facility] Pathology & Laboratory Medicine - [facility] [address] [place] [address] Lg Ramírez MD [address] [place] [address] Generalized enlarged lymph nodes Social History [...] Name Priority Date/Time Associated Diagnosis Comments NON MARINE SERVICE MANAGER/FNA CYTOLOGY Today 10/05/2022 8:00 EDT Generalized enlarged lymph nodes documented in this encounter Results * NON MARINE SERVICE MANAGER/FNA CYTOLOGY (10/05/2022 8:00 EDT) Note to Patient The following pathology results have been interpreted by your pathologist and may be available to you before your health provider has had the opportunity to review them. Please allow time for your provider to receive these results and explore management options, if applicable. 10/09/2022 11:35 EDT [facility] Final Diagnosis A. LYMPH NODE, NECK, LATERALITY NOT SPECIFIED, ULTRASOUND-GUIDED FINE-NEEDLE ASPIRATION: - Mixed lymphoid population present, cannot exclude lymphoproliferative disorder. See comment. - Negative for metastatic carcinoma. 10/09/2022 11:35 [facility] Diagnosis Comment The specimen consists of a single thin prep slide with a mixed population lymphocytes. A lymphoproliferative disorder cannot be excluded based on this specimen alone. Correlation with the concurrent flow cytometry report ([id number]) and surgical biopsy specimen ([id number]) is essential. 10/09/2022 11:35 [facility] Attestation By the signature below, the attending physician certifies that they have personally conducted a gross and/or microscopic examination of the described specimens and rendered or confirmed the above diagnosis. 10/09/2022 11:35 [facility] at [address]5 Clinical History Massive LAD; prostate cancer; R59.1 10/09/2022 11:35 [facility] Gross Description A. One vial of CytoLyt was received and processed by selective cellular enhancement technique. 10/09/2022 11:35 [facility] Performing Lab [facility] 10/09/2022 11:35 [facility] Scanned Images 10/09/2022 11:35 [facility] Fine Needle Aspirate ENTIRE LYMPH NODE / Unknown 10/05/2022 8:00 EDT 10/06/2022 6:21 EDT Lg Ramírez MD PATHOLOGY ORDERABLES [facility] [address] [place] [address] documented in this encounter Visit Diagnoses Diagnosis Generalized enlarged lymph nodes Enlargement of lymph nodes documented in this encounter Care Teams Ophthalmic Nurse Relationship Specialty Start Date End Date Bobby Headley MD [address] [place] [phone] PCP - General 01/18/12 documented as of this encounter
--- OUTSIDE RECORDS SUMMARY | 2023-11-16 06:27 | XMS_ITS | Encounter Summary ---
Author Organization [facility] Address [facility] [place] [address] Care Team Providers Care Photographic Enlarger Operator Name Role Phone Frederick Meade MD Primary Care Provider [phone] Encounter Details Date Type Department Care Team (Late st Contact Info) Description 10/22/2023 Orders Only [place]ematology [place] [address] Adrianne Ramon MD [facility] [address] [place] [address] Social History Tobacco Use Types Packs/Day Years [...] AM EDT Office Visit Hematology/Oncology at [address] [address] Adrianne Ramon MD [facility] DR [place] [address] Yael Merlos APRN [facility] [address] [place] [address] 11/21/2023 10:00 AM EDT Infusion Hematology Oncology at [address] [address] 11/23/2023 11:00 AM EDT Office Visit [place]ematology [place] [address] Reynold Proctor MD [facility] [place] [address] 11/23/2023 1:00 PM EDT Appointment Hematology [place] [address] 11/23/2023 2:00 PM EDT Office Visit [place]ematology [place] [address] Micha Givens Jr., MD [facility] DR [place] [address] 11/23/2023 3:30 PM EDT [place] [address] Micha Givens Jr., MD [facility] DR [place] [address] documented as of this encounter Visit Diagnoses Not on filedocumented in this encounter Care Teams Photographic Enlarger Operator Relationship Specialty Start Date End Date Frederick Medae MD [address] [place] [address] PCP - General Family Medicine 11/29/17 documented as of this encounter
--- OUTSIDE RECORDS SUMMARY | 2023-11-16 06:27 | XMS_ITS | Encounter Summary ---
Author Organization [facility] Address [address] [place] [address] Care Team Providers Care Blindstitch Hemmer Name Role Phone Bobby Headley MD Primary Care Provider [phone] Encounter Details Date Type Department Care Team (Late st Contact Info) Description 10/03/2023 Lab Requisition [facility] Pathology & Laboratory Medicine - [address] [phone] Outr Resulting Lab, Provider Social History Tobacco [...] [facility] [address] [place] [address] documented in this encounter Visit Diagnoses Not on filedocumented in this encounter Care Teams Blindstitch Hemmer Relationship Specialty Start Date End Date Bobby Headley MD [address] [phone] PCP - General 01/18/12 documented as of this encounter
--- OUTSIDE RECORDS SUMMARY | 2023-11-16 06:27 | XMS_ITS | Encounter Summary ---
Author Organization [facility] Address [address] [place] [address] Care Team Providers Care Histology Tech Name Role Phone Bobby Headley MD Primary Care Provider [phone] Encounter Details Date Type Department Care Team (Late st Contact Info) Description 10/11/2022 Lab Requisition [facility] Pathology & Laboratory Medicine - [address] [address] Dedrick Quintanilla MD [address] [facility] [facility], [address] [place] [address] Encounter for other general examination [...] Caleb Lloyd SEE NOTE 10/16/2022 15:45 EDT [facility] Comment: Test ?Result ?Flag ??Unit ??RefValue B-cell Lymphoma, FISH, Tissue ??Result Summary ?Negative ?Interpretation ?SEE NOTE ?No MYC rearrangement and no fusion of MYC and IGH was ?observed, therefore this makes unlikely the possibility of ?high-grade B-cell lymphoma with MYC and BCL2 and/or BCL6 ?rearrangements (double-hit lymphoma; Chele et al., WHO ?Classification of Tumours of Haematopoietic and Lymphoid ?Tissues, IARC Press:Agrwaal, 2017). ?Clinical and pathologic correlation is recommended. [...] Slides, Formalin ??Source ?Tongue ?Tissue ID ? [id number] ?Method ?SEE NOTE ?Locus and probes ? [Strategy;#Nuclei;Class] ?8CEN(D8Z2),8q24.1(MYC),14q32(IGH) ?[DFISH;100;AM] ?8q24.1(5'MYC,3'MYC) ?[BAP;100;AM] ?Probe strategies include: ?DFISH=dual color, double fusion; ?BAP=break-apart probe. ?Scoring Method: Manual ?Probe vendors include: ?AM = [employer] ([place], [place]) ??Additional Information ?Not Reported ?Disclaimer ?SEE NOTE ?Applicable to Analyte Specific Reagent (ASR) and Laboratory ?Developed Tests (LDT). This test was developed and its ?performance characteristics determined by [facility] in a ?manner consistent with CLIA [...] ? Masha Padilla M.D. ?Test Performed by: ?[facility] ?[address] [place] [address] ?Court Magistrate: Jose David Lowry M.D. Ph.D.; CLIA# [id number] Tissue TISSUE SPECIMEN / Unknown 10/05/2022 8:00 EDT 10/11/2022 7:41 EDT Dedrick Quintanilla MD CHEMISTRY & BLOOD GA S ORDERABLES Performing Organization Address City/State/[facility] Co de Phone Number [facility] [address] [place] [address] documented in this encounter Visit Diagnoses Diagnosis Encounter for other general examination documented in this encounter Care Teams Histology Tech Relationship Specialty Start Date End Date Bobby Headley MD [address] [place] [address] PCP - General 01/18/12 documented as of this encounter
--- OUTSIDE RECORDS SUMMARY | 2023-11-16 06:27 | XMS_ITS | Encounter Summary ---
Author Organization [facility] Address [address] [place] [address] Care Team Providers Care Center Manager Name Role Phone Bobby Headley MD Primary Care Provider [phone] Encounter Details Date Type Department Care Team (Late st Contact Info) Description 10/26/2022 Lab Requisition [facility] Pathology & Laboratory Medicine - [address] [phone] Outr Resulting Lab, Provider Social History Tobacco [...] Antigen Detection Negative Negative 10/26/2022 23:03 EDT [facility] Urine URINE / Unknown 10/25/2022 6 :05 EDT 10/26/2022 22:47 EDT Provider Outr Resulting Lab MICROBIOLOGY - GENERAL ORDERABLES [facility] [address] [place] [address] documented in this encounter Visit Diagnoses Not on filedocumented in this encounter Care Teams Center Manager Relationship Specialty Start Date End Date Bobby Headley MD [address] [place] [address] PCP - General 01/18/12 documented as of this encounter
--- OUTSIDE RECORDS SUMMARY | 2023-11-16 06:27 | XMS_ITS | Encounter Summary ---
Author Organization [facility] [place] [address] Care Team Providers Care Taste Tester Name Role Phone Frederick Meade MD Primary Care Provider [phone] Encounter Details Date Type Department Care Team (Latest Contact Info) Description 10/24/2023 Travel Social History Tobacco Use Types Packs/Day [...] AM EDT Office Visit Hematology/Oncology at [address] [address] Adrianne Ramon MD [facility] [address] [place] [address] Yael Merlos APRN [facility] [address] [place] [address] 11/21/2023 10:00 AM EDT Infusion Hematology Oncology at [address] [address] 11/23/2023 11:00 AM EDT Office Visit Hematology [place] [address] Reynold Proctor MD [facility] [place] [address] 11/23/2023 1:00 PM EDT Appointment Hematology [place] [address] 11/23/2023 2:00 PM EDT Office Visit Hematology [place] [address] Micha Givens Jr., MD [facility] [place] [address] 11/23/2023 3:30 PM EDT Hospital Encounter [place] [address] Micha Givens Jr., MD [facility] [address] [place] [address] documented as of this encounter Visit Diagnoses Not on filedocumented in this encounter Care Teams Taste Tester Relationship Specialty Start Date End Date Frederick Meade MD [address] [place] [address] [address] [place] [address] PCP - General Family Medicine 11/29/17 documented as of this encounter
--- OUTSIDE RECORDS SUMMARY | 2023-11-16 06:27 | XMS_ITS | Encounter Summary ---
Author Organization [facility] [place] [address] Care Team Providers Care Route Sales Delivery Driver Name Role Phone Frederick eMade MD Primary Care Provider [phone] Encounter Details Date Type Department Care Team (Latest Contact Info) Description 10/17/2023 Travel Social History Tobacco Use Types Packs/Day [...] AM EDT Office Visit Hematology/Oncology at [address] [phone] Adrianne Ramon MD [facility] [address] [place] [address] Yael Merlos APRN [facility] [address] [place] [address] 11/21/2023 10:00 AM EDT Infusion Hematology Oncology at [address] [phone] 11/23/2023 11:00 AM EDT Office Visit [place] [phone] Reynold Proctor MD [facility] [place] [address] 11/23/2023 1:00 PM EDT Appointment Hematology [place] [phone] 11/23/2023 2:00 PM EDT Office Visit [place]ology [place] [phone] Micha Givens Jr., MD [facility] [place] [address] 11/23/2023 3:30 PM EDT [place] [address] Micha Givens Jr., MD [facility] [address] [place] [address] documented as of this encounter Visit Diagnoses Not on filedocumented in this encounter Care Teams Route Sales Delivery Driver Relationship Specialty Start Date End Date Frederick Meade MD [address] [place] [address] [address] [place] [address] PCP - General Family Medicine 11/29/17 documented as of this encounter
--- OUTSIDE RECORDS SUMMARY | 2023-11-16 06:27 | XMS_ITS | Encounter Summary ---
Author Organization [facility] Address [address] [place] [address] Care Team Providers Care Transferrer Name Role Phone Bobby Headley MD Primary Care Provider [phone] Encounter Details Date Type Department Care Team (Late st Contact Info) Description 09/26/2023 Lab Requisition [facility] Pathology & Laboratory Medicine - [address] [address] Outr Resulting Lab, Provider Social History Tobacco [...] - 1,616 mg/dL 09/27/2023 10:20 EDT [facility] IgA 108 85 - 499 mg/dL 09/27/2023 10:20 EDT [facility] IgM 129 35 - 242 mg/dL 09/27/2023 10:20 EDT [facility] Blood VENOUS BLOOD / Unknown 09/26/2023 7:47 EDT 09/26/2023 17:12 EDT Provider Outr Resulting Lab CHEMISTRY & BLOOD GAS ORDERABLES [facility] [address] [place] [address] documented in this encounter Visit Diagnoses Not on filedocumented in this encounter Care Teams Transferrer Relationship Specialty Start Date End Date Bobby Headley MD [address] [place] [phone] PCP - General 01/18/12 documented as of this encounter
--- OUTSIDE RECORDS SUMMARY | 2023-11-16 06:27 | XMS_ITS | Encounter Summary ---
Author Organization [facility] Address [address] [place] [address] Care Team Providers Care Sheet Metal Worker Helper Name Role Phone Unavailable Primary Care Provider Unavailabl e Encounter Details Date Type Department Care Team (Late st Contact Info) Description 12/19/2006 Results Only [facility] conversion [address] [place] [address] Micha Pineda MD [address] [place] [phone] Social History Tobacco Use Types Packs/Day Years [...] ? CHEO MORFIN ? Accession #: ? [id number] ? : ? 1950 (Age: 56) ??M [...] specimen is entirely submitted as (C). ??([facility] Echav[facility]ria[facility] End of Report [facility] 12/19/2006 12/19/2006 15: 40 EDT Micha Pineda MD PATHOLOGY ORDERABLES Performing Organization Address City/State/[facility] Co de Phone Number [facility] [address] [place] [address] documented in this encounter Visit Diagnoses Not on filedocumented in this encounter
--- OUTSIDE RECORDS SUMMARY | 2023-11-16 06:27 | XMS_ITS | Encounter Summary ---
Author Organization [facility] [place] [address] Care Team Providers Care Log Handling Equipment Operator Name Role Phone Frederick Meade MD Primary Care Provider [phone] Encounter Details Date Type Department Care Team (Late st Contact Info) Description 11/02/2023 Orders Only Hematology [place] [address] Micha Givens Jr., MD [facility] [address] [place] [address] Disorder of thyroid; Thyroid disorder screen; Blood coagulation defect; Encounter for pre-operative laboratory testing; Pre-op testing; At risk for chemotherapy-induced bleeding Social History Tobacco Use Types Packs/Day Years [...] AM EDT Office Visit Hematology/Oncology at [address] [phone] Adrianne Ramon MD [facility] DR [place] [address] Yael Merlos, KARLA [facility] [address] [place] [address] 11/21/2023 10:00 AM EDT Infusion Hematology Oncology at [address] [phone] 11/23/2023 11:00 AM EDT Office Visit Hematology [place] [address] Reynold Proctor MD [facility] [place] [address] 11/23/2023 1:00 PM EDT Appointment Hematology [place] [address] 11/23/2023 2:00 PM EDT Office Visit Hematology [place] [address] Micha Givens Jr., MD [facility] DR [place] [address] 11/23/2023 3:30 PM EDT Hospital [place] [address] Micha Givens Jr., MD [facility] [address] [place] [address] Scheduled Orders Name Type Priority Associated Diagnoses Orde r Schedule TSH Lab Routine Disorder of thyroid Thyroid disorder screen Encounter for pre-operative laboratory testing Pre-op testing Expected: 11/23/2023, Expires: 11/01/2024 Prothrombin Time Lab Routine Blood coagulation defect Encounter for pre-operative laboratory testing Pre-op testing At risk for chemotherapy-induced bleeding Expected: 11/23/2023, Expires: 11/01/2024 APTT Lab Routine Blood coagulation defect Encounter for pre-operative laboratory testing Pre-op testing At risk for chemotherapy-induced bleeding Expected: 11/23/2023, Expires: 11/01/2024 documented as of this encounter Visit Diagnoses Diagnosis Disorder of thyroid Unspecified disorder of thyroid Thyroid disorder screen Screening for thyroid disorder 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
--- OUTSIDE RECORDS SUMMARY | 2023-11-16 06:27 | XMS_ITS | Encounter Summary ---
Author Organization [facility] Address [address] [place] [address] Care Team Providers Care Quarry Supervisor Dimension Stone Name Role Phone Bobby Headley MD Primary Care Provider [phone] Encounter Details Date Type Department Care Team (Late st Contact Info) Description 06/13/2023 Lab Requisition [facility] Pathology & Laboratory Medicine - [address] [address] Outr Resulting Lab, Provider Social History Tobacco [...] 610 - 1,616 mg/dL 06/14/2023 11:26 EDT [facility] IgA 119 85 - 499 mg/dL 06/14/2023 11:26 EDT [facility] IgM 124 35 - 242 mg/dL 06/14/2023 11:26 EDT [facility] Blood VENOUS BLOOD / Unknown 06/13/2023 10:17 EDT 06/13/2023 17:36 EDT Provider Outr Resulting Lab CHEMISTRY & BLOOD GAS ORDERABLES [facility] [address] [place] [address] documented in this encounter Visit Diagnoses Not on filedocumented in this encounter Care Teams Quarry Supervisor Dimension Stone Relationship Specialty Start Date End Date Bobby Headley MD [address] [phone] PCP - General 01/18/12 documented as of this encounter
--- OUTSIDE RECORDS SUMMARY | 2023-11-16 06:27 | XMS_ITS | Encounter Summary ---
Author Organization [facility] Address [address] [place] [address] Care Team Providers Care Him Analyst Name Role Phone Bobby Headley MD Primary Care Provider [phone] Encounter Details Date Type Department Care Team (Late st Contact Info) Description 09/19/2023 Lab Requisition [facility] Pathology & Laboratory Medicine - [address] [phone] Outr Resulting Lab, Provider Social History Tobacco [...] 610 - 1,616 mg/dL 09/20/2023 9:59 EDT [facility] IgA 100 85 - 499 mg/dL 09/20/2023 9:59 EDT [facility] IgM 123 35 - 242 mg/dL 09/20/2023 9:59 EDT [facility] Blood VENOUS BLOOD / Unknown 09/19/2023 7:16 EDT 09/19/2023 16:41 EDT Provider Outr Resulting Lab CHEMISTRY & BLOOD GAS ORDERABLES [facility] [address] [place] [address] documented in this encounter Visit Diagnoses Not on filedocumented in this encounter Care Teams Him Analyst Relationship Specialty Start Date End Date Bobby Headley MD [address] [place] [phone] PCP - General 01/18/12 documented as of this encounter
--- OUTSIDE RECORDS SUMMARY | 2023-11-16 06:27 | XMS_ITS | Clinical Summary ---
Author Organization [facility] Address [address] [place] [address] Care Team Providers Care Civil Structural Designer Name Role Phone Bobby Headley MD Primary Care Provider [phone] Encounters Date Type Department Care Team Description 10/03/2023 Lab Requisition [facility] Pathology & Laboratory [address] [address] Outr Resulting Lab, Provider 09/26/2023 Lab Requisition [facility] Pathology & Laboratory [address] [address] Outr Resulting Lab, Provider 09/19/2023 Lab Requisition [facility] Pathology & Laboratory [address] [address] Outr Resulting Lab, Provider from Last 3 [...] 610 - 1,616 mg/dL 10/04/2023 9:36 EDT [facility] IgA 92 85 - 499 mg/dL 10/04/2023 9:36 EDT [facility] IgM 118 35 - 242 mg/dL 10/04/2023 9:36 EDT [facility] Blood VENOUS BLOOD / Unknown 10/03/2023 9:10 EDT 10/03/2023 17:28 EDT Provider Outr Resulting Lab CHEMISTRY & BLOOD GAS ORDERABLES [facility] [address] [place] [address] from Last 3 Months Care Teams Civil Structural Designer Relationship Specialty Start Date End Date Bobby Headley MD [address] [place] [place] [phone] PCP - General 01/18/12
--- OUTSIDE RECORDS SUMMARY | 2023-11-16 06:27 | XMS_ITS | Encounter Summary ---
Author Organization [facility] Address [address] [place] [address] Care Team Providers Care Wind Operations Manager Name Role Phone Bobby Headley MD Primary Care Provider [phone] Encounter Details Date Type Department Care Team (Late st Contact Info) Description 10/06/[address] [facility] Pathology & Laboratory Medicine - [address] [phone] Outr Resulting Lab, Provider Social History Tobacco [...] on filedocumented in this encounter Care Teams Wind Operations Manager Relationship Specialty Start Date End Date Bobby Headley MD [address] [place] [id number] PCP - General 01/18/12 documented as of this encounter
--- OUTSIDE RECORDS SUMMARY | 2023-11-16 06:27 | XMS_ITS | Encounter Summary ---
Author Organization [facility] [place] [address] Care Team Providers Care Touch Up Worker Name Role Phone Frederick Meade MD Primary Care Provider [phone] Encounter Details Date Type Department Care Team (Late st Contact Info) Description 10/17/2023 1:00 PM EDT TH Visit (TeleHealth) Hematology/Oncology at [address] [address] Adrianne Ramon MD [facility] [place] [address] Yael Merlos, PARACHUTE OFFICER [facility] [place] [address] Diffuse large B-cell lymphoma of lymph nodes [...] Sign Reading Time Taken Comments Blood Pressure 127/56 10/17/2023 12:45 PM EDT Pulse 62 10/17/2023 12:45 PM EDT Temperature 36.4 ??C (97.5 ??F) 10/17/2023 1 2:45 PM EDT Respiratory Rate 16 10/17/2023 12:4 5 PM EDT Oxygen Saturation 96% 10/17/2023 12: 45 PM EDT Inhaled Oxygen Concentration - - Weight 86.6 kg (190 lb 14.7 oz) 024 12:45 PM EDT Height - - Body Mass Index 29.93 10/11/2023 8:32 AM EDT documented in this encounter Progress Notes * Adrianne Ramon MD - 10/17/2023 1:00 PM EDT Images from the original note were not included. Hematology Clinic [facility] [place] [address] HEMATOLOGY PATIENT EVALUATION PROBLEM LIST: Patient Active [...] person(s) : Claritza son Cheo rosa daughter Shaye Clemens It was my pleasure to meet Cheo [...] to consultation, he saw [facility] and when to [facility]. No beds so sent to [facility] for [address] CAP, MRI, [...] unclear cause. - last COLO at [facility] was 01/17/2012. INTERIM HISTORY OF PRESENT ILLNESS: Seen today for start of Revlimid and rituximab. Met with Dr. Givens 2 weeks ago to discuss CAR-T celltherapy. He is interested in pursuing this. Had an echocardiogram the end of August with ejection fraction of 60%. Called in earlier in the week with constipation. Appreciate integration manager and recommendations. Cheo is here today he completed 4 weeks of rituximab and his first 21 days of Rituxan. He is now on his week off. He tolerated the Revlimid beautifully. Tonsil and arm have decreased in size. He iscompleting his prednisone taper. PCP is helping with management of his diabetes. He has had problems with constipation which we discussed again today. Hand cramping inproved with KCL - could be Revlimid or steroids. Starting 20 mEq daily. No SFX or N/V with revlamid. Using metamucil and colace. Due to start Rev C#2 20mg X 21 days on . 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 6 mos of adjuvant Lupron. Total dose 79.2 Gy completed 01/26/15 09/29/22 Large B Cell lymphoma - biopsy of tongue and needle of cervical LN. FISH from [facility] No MYCrearrangement and no fusion of MYC [...] and biopsy + for DLBCL ABC subtype. FISH neg for geen rearrangement 09/21/23 CAR-T cell evaluation 09/24/23 C#1 R2 - rev 20mg X21 d started with weekly rituxan X 4 10/17/23 Excellent clnical response w/ decrease in cutaneous lesions and tonsil. Plans for R2 then CAR-T cell therapy [...] 70/30) 100 unit/mL (70-30) Solution Subcutaneous, DAILY lenalidomide (REVLIMID) 20 mg, Oral, DAILY, Call clinic before starting medication. loratadine (CLARITIN) 10 mg, Oral, DAILY ONE TOUCH DELICA 33 gauge Misc USE TO TEST DAILY ONETOUCH ULTRA BLUE TEST STRIP Strip USE TO TEST DAILY ONETOUCH ULTRASOFT LANCETS Misc USE TO TEST DAILY potassium chloride ER (Klor-Con M) 20 mEq ER micro-encapsulated crystal tablet 20 mEq, Oral, DAILY Psyllium Seed-Sucrose (0) Powder Oral, 2 [...] only 1 biologic. Son Cheo Freire. Enjoys [employer], Musical Sneakers, [employer] car, [employer]. [employer]. 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 Not a . ETOH: 1-3 beers per week Smoking: Quit 1985. Approximately 29-hfta-khfi history Vaping or electronic cigarettes: denies Chewing tobacco: denies Marijuana or other recreational drug use: none HIPPA Contact Permission: Claritza and Cheo. Also OK to talk to Delia adult children. OK to leave message with medical information on home or cell phone: home phone PHYSICAL EXAM BP 127/56 (BP Location (NBP): Right arm, Patient Position: Sitting, BP Cuff Sizes: Large Adult (32-43 cm)) Pulse 62 Temp 36.4 ??C (97.5 ??F) (Temporal) Resp 16 Wt 86.6 kg (190 lb 14.7 oz) SpO2 96% BMI 29.93 kg/m?? GENERAL: Cheo Freire is a delightful 73-year old male in [facility]. He is accompanied to the clinic by his today. Telehealth visit OP - tonsil sig decreased in size EXTREMITIES: see photo -5 cm x 3.5 [...] 3.5 x 5.5 cm increased from prior - but today (no photo) L arm just hyperpigmented and only slightly raised and R arm is no longer appreciated at all. 09/12/2023 left antecubital LABORATORY STUDIES Recent Results (from the past 72 hour(s)) External Hematology Lab Results Result Value Ref Range WBC - External 4.24 Hemoglobin - External 10.9 Hematocrit - External 33.9 Platelets - External 197 Neutr ABS (ANC) - External 2.61 External Chemistry Lab Results Result Value Ref Range Glucose Lvl - External 132 Creatinine - External 1.2 Potassium - External 4 Calcium - External 8.8 AST (SGOT) - External 19 ALT (SGPT) - External 36 LDH - External 185 PATHOLOGY: 09/06/23 DIAGNOSIS A - Left antecubital [...] and BCL-2 protein (Double Expressor.) Flow cytometry ([id number]) supports this interpretation. FISH from [facility] No MYC rearrangement and no fusion of MYC and IGH was observed, CD3 (SP7, Thermo Scientific) Background T-cells CD20 (L26, [place]ph[place]) diffusely positive in Neoplastic B-cells PAX-5 (1EW, Leica) diffusely positive in Neoplastic B-cells CD10 (SP67, [place]phos) Negative BCL-6 (G/191E/A8, Delphos) Positive MUM-1 (MUM1p, Dako) Positive Myc (Y69, Abcam) Positive BCL-2 Oncoprotein (124, Delphos) Positive Ki67 (MIB-1) (K2, Leica) Greater than 95% of cells in cycle Cyclin D1(SP4-R, Delphos) Negative SAPPHIRE JOSE (BXE3649-B, Leica) Negative. DIAGNOSTICS: [facility] ECHO EF 60% 01/25/23 ECHO after C#5 [...] left upper extremity ultrasound performed at [facility] Notable findings: In the left antecubital [...] undergo investigation with ultrasound. CT CAP at [facility], report and images have been requested. [...] at least [address] [facility] and local hospital. Unfortunately, because ofhis age, [...] concepts, and the time it entails at [facility]. This would be a significant commitment for the patient and his family as they live [place] hours away from [facility]. They feel comfortable that they [...] patients were alive and relapse free. Finally O September 19, 2016, Robb Hernandez et al, [...] at 50-55%. --asymptomatic --repeat echo at [facility] 1 year post completion of therapy [...] probiotics and perhaps suppository if necessary Plan: Completed pred wean on 10/05/23. Tolerating R2 with excellent clinical response CAR-T cell program referral ongoing, Dr. Givens we will postpone from 10/25 to early November to allow him time to adjust to R2 before learning about CAR-T Given c-diff, will need to consider vanco prophy if requires ATB in next 6 - 12 mos C#2 10/24/23 Revlimid 20 mg daily x 21 days on and 7 days off. 28-day cycle start in conjunction withrituximab - KCL 20meq daily for hypokalemia and hand cramping Constipation -using Metamucil and Colace. If no bowel movement by tomorrow he will try MiraLAX. I will ask the nurses to call him tomorrow afternoon to check. I discussed all of the above with the patient and all of his questions were answered. Support and counseling as appropriate. I spent 30 min on this video/ telehealth encounter including chart review, time with the patient and documentation. Copy Frederick Meade MD documented in this encounter Plan of Treatment Upcoming Encounters Date Type Department Care Team (Late st Contact Info) Description 11/21/2023 9:30 AM EDT Office Visit Hematology/Oncology at [address] [phone] Adrianne Ramon MD [facility] [place] [address] Yael Merlos APRN [facility] [place] [address] 11/21/2023 10:00 AM EDT Infusion Hematology Oncology at [address] [phone] 11/23/2023 11:00 AM EDT Office Visit Hematology and Oncology at [place] [phone] Reynold Proctor MD [facility] [address] 11/23/2023 1:00 PM EDT Appointment Hematology [place] [phone] 11/23/2023 2:00 PM EDT Office Visit [place]ematology [place] [phone] Micha Givens Jr., MD [facility] [place] [address] 11/23/2023 3:30 PM EDT [place] [phone] Micha Givens Jr., MD [facility] [place] [address] documented as of this encounter Procedures Procedure Name Priority Date/Time Associated Diagnosis Comments EXTERNAL HEMATOLOGY LAB RESULTS Routine 10/17/2023 EXTERNAL CHEMISTRY LAB RESULTS Routine 10/17/2023 documented in this encounter Results * External Chemistry Lab Results (10/17/2023) Glucose Lvl - External 132 Creatinine - External 1.2 Potassium - External 4 Calcium - External 8.8 AST (SGOT) - External 19 ALT (SGPT) - External 36 LDH - External 185 10/17/2023 Historical Provider MD [facility] * External Hematology Lab Results (10/17/2023) WBC - External 4.24 Hemoglobin - External 10.9 Hematocrit - External 33.9 Platelets - External 197 Neutr ABS (ANC) - External 2.61 10/17/2023 Historical Provider MD [facility] documented in this encounter Visit Diagnoses Diagnosis 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
--- OUTSIDE RECORDS SUMMARY | 2023-11-16 06:27 | XMS_ITS | Encounter Summary ---
Author Organization [facility] Address [address] [place] [address] Care Team Providers Care Continuous Improvement Director Name Role Phone Bobby Headley MD Primary Care Provider [phone] Encounter Details Date Type Department Care Team (Late st Contact Info) Description 11/16/2022 Lab Requisition [facility] Pathology & Laboratory Medicine - [facility] [address] [place], [place] [address] Outr Resulting Lab, Provider Social History Tobacco [...] Negative Negative 11/16/2022 23:10 EDT [facility] Shigella/Enteroin vasive E. coli Negative Negative 11/16/2022 23:10 EDT [facility] HN LAB CAMPYLOBACTER PCR Negative Negative 11/16/2022 23:10 EDT [facility] Shiga Toxin PCR Negative Negative 23:10 EDT [facility] Feces SPECIMEN FROM RECTUM / Unknown 11/16/2022 0:35 EDT 11/16/2022 18:28 EDT Provider Outr Resulting Lab MICROBIOLOGY - GENERAL ORDERABLES [facility] [address] [place] [address] documented in this encounter Visit Diagnoses Not on filedocumented in this encounter Care Teams Continuous Improvement Director Relationship Specialty Start Date End Date Bobby Headley MD [address] [place] [id number] PCP - General 01/18/12 documented as of this encounter
--- OUTSIDE RECORDS SUMMARY | 2023-11-16 06:27 | XMS_ITS | Encounter Summary ---
Author Organization [facility] Address [address] [place] [address] Care Team Providers Care Lumber Inspector Name Role Phone Bobby Headley MD Primary Care Provider [phone] Encounter Details Date Type Department Care Team (Late st Contact Info) Description 10/06/2022 Lab Requisition [facility] Pathology & Laboratory Medicine - [facility] [address] [place] [address] Lg Ramírez MD [address] [place] [phone] Generalized enlarged lymph nodes Social History [...] B-cell lymphoproliferative disorder. See comment. 12:09 EDT [facility] Comment The results of flow cytometry are those of involvement by a lymphoproliferative disorder of B-cell lineage expressing surface lambda light chains. The immunophenotypic profile is non-specific.. Cell size, as assessed by light scatter criteria, suggests a large B-cell lymphoma. Correlation of these findings with morphologic and clinical data is essential. Please refer to report [id number] for morphologic details. 3 12:09 [facility] Attestation By the signature below, the attending physician certifies that they have 1) personally conducted a gross and/or microscopic examination of the described specimen(s), and/or personally interpreted the results of laboratory testing of the described specimen(s), and 2) personally rendered or confirmed the above diagnosis. 3 12:09 [facility] at 1209 Clinical History 72 yo male with massive LAD (cervical/tongue/ret rophar.) 3 12:09 [facility] Description The specimen consists of [...] CD4+ and CD8+ subsets represented. 3 12:09 [facility] Flow Markers CD10, CD19, CD20, CD3, CD4, CD45, CD5, CD8, Lehr, and Lambda 3 12:09 [facility] FDA Disclaimer This test was developed and its performance characteristics determined by the Department of Pathology and Laboratory Medicine, , [place], [place] It has not been cleared or [...] complexity clinical laboratory testing. 3 12:09 EDT [facility] Sample Analyzed Date and Time 10/06/22 12:30 3 12:09 EDT [facility] Scanned Images 3 12:09 EDT [facility] Tissue STRUCTURE OF ROOT OF TONGUE / Unknown 10/05/2022 8:00 EDT 10/06/2022 9:32 EDT Lg Ramírez MD PATHOLOGY ORDERABLES [facility] [address] [place] [address] documented in this encounter Visit Diagnoses Diagnosis Generalized enlarged lymph nodes Enlargement of lymph nodes documented in this encounter Care Teams Lumber Inspector Relationship Specialty Start Date End Date Bobby Headley MD [address] [place] [id number] PCP - General 01/18/12 documented as of this encounter
--- OUTSIDE RECORDS SUMMARY | 2023-11-16 06:27 | XMS_ITS | Encounter Summary ---
Author Organization [facility] Address [address] [place] [address] Care Team Providers Care Wood Shop Teacher Name Role Phone Bobby Headley MD Primary Care Provider [phone] Encounter Details Date Type Department Care Team (Late st Contact Info) Description 03/05/2020 Lab Requisition [facility] Pathology & Laboratory Medicine - [address] [phone] Outr Resulting Lab, Provider Social History Tobacco [...] 0.0 - 6.5 ng/mL 03/06/2020 0:00 EST [facility] Blood VENOUS BLOOD / Unknown 03/05/2020 7:50 EST 03/05/2020 17:28 EST Narrative [facility] - 03/06/2020 0:00 EST NOTE: Serum PSA concentration should not be interpreted as absolute evidence for the presence or absence of malignant disease. Assayed on Siemens ADVIA LIVELENZaur XPT using chemiluminescent technology.??Values obtained by using different assay methods cannot be used interchangeably. Provider Outr Resulting Lab CHEMISTRY & BLOOD GAS ORDERABLES [facility] [address] [place] [address] documented in this encounter Visit Diagnoses Not on filedocumented in this encounter Care Teams Wood Shop Teacher Relationship Specialty Start Date End Date Bobby Headley MD [address] [place] [phone] PCP - General 01/18/12 documented as of this encounter
--- OUTSIDE RECORDS SUMMARY | 2023-11-16 06:27 | XMS_ITS | Encounter Summary ---
[place] [address] Care Team Providers Care Project Inspector Name Role Phone Frederick Meade MD Primary Care Provider [phone] Encounter Details Date Type Department Care Team (Late st Contact Info) Description 11/05/2023 Orders Only Hematology [place] [address] Yael Merlos, DIRECTOR OF EMAIL MARKETING [facility] HEMATOLOGY [place] [address] Social History Tobacco Use Types Packs/Day Years [...] AM EDT Office Visit Hematology/Oncology at [address] [phone] Adrianne Ramon MD [facility] DR HEMATOLOGY [place] [address] Yael Merlos, KARLA [facility] DR HEMATOLOGY [place] [address] 11/21/2023 10:00 AM EDT Infusion Hematology Oncology at [address] [phone] 11/23/2023 11:00 AM EDT Office Visit [place]ology [place] [phone] Reynold Proctor MD [facility] [place] [address] 11/23/2023 1:00 PM EDT Appointment Hematology [place] [address] 11/23/2023 2:00 PM EDT Office Visit [place]ology [place] [address] Micha Givens Jr., MD [facility] DR HEMATOLOGY [place] [address] 11/23/2023 3:30 PM EDT [place] [address] Micha Givens Jr., MD [facility] DR HEMATOLOGY [place] [address] documented as of this encounter Visit Diagnoses Not on filedocumented in this encounter Care Teams Project Inspector Relationship Specialty Start Date End Date Frederick Meade MD [address] [place] [address] PCP - General Family Medicine 11/29/17 documented as of this encounter
--- OUTSIDE RECORDS SUMMARY | 2023-11-16 06:27 | XMS_ITS | Encounter Summary ---
Author Organization [facility] Address [address] [place] [address] Care Team Providers Care Anatomic Pathology Assistant Name Role Phone Bobby Headley MD Primary Care Provider [phone] Encounter Details Date Type Department Care Team (Late st Contact Info) Description 10/11/2022 Lab Requisition [facility] Pathology & Laboratory Medicine - [address] [id number] Outr Resulting Lab, Provider Social History Tobacco [...] 610 - 1,616 mg/dL 10/12/2022 9:35 EDT [facility] IgA 182 85 - 499 mg/dL 10/12/2022 9:35 EDT [facility] IgM 233 35 - 242 mg/dL 10/12/2022 9:35 EDT [facility] Blood VENOUS BLOOD / Unknown 10/11/2022 10:55 EDT 10/11/2022 17:38 EDT Provider Outr Resulting Lab CHEMISTRY & BLOOD GAS ORDERABLES [facility] [address] [place] [address] documented in this encounter Visit Diagnoses Not on filedocumented in this encounter Care Teams Anatomic Pathology Assistant Relationship Specialty Start Date End Date Bobby Headley MD [address] [place] [phone] PCP - General 01/18/12 documented as of this encounter
--- OUTSIDE RECORDS SUMMARY | 2023-11-16 06:28 | XMS_ITS | Encounter Summary ---
Author Organization [facility] Address [facility] [place] [address] Care Team Providers Care Project Management Manager Name Role Phone Frederick Meade MD Primary Care Provider [phone] Encounter Details Date Type Department Care Team (Late st Contact Info) Description 10/10/2023 Orders Only Hematology Oncology at [address] [phone] Tania Rosales, RN Diffuse large [...] AM EDT Office Visit Hematology/Oncology at [address] [address] Adrianne Ramon MD [facility] [address] [place] [address] Yael Merlos APRN [facility] [place] [address] 11/21/2023 10:00 AM EDT Infusion Hematology Oncology at [address] [phone] 11/23/2023 11:00 AM EDT Office Visit Hematology [place] [address] Reynold Proctor MD [facility] [place] [address] 11/23/2023 1:00 PM EDT Appointment Hematology [place] [address] 11/23/2023 2:00 PM EDT Office Visit [place]ematology [place] [address] Micha Givens Jr., MD [facility] [address] [place] [address] 11/23/2023 3:30 PM EDT [place] [address] Micha Givens Jr., MD [facility] [address] [place] [address] documented as of this encounter Visit Diagnoses Diagnosis 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
--- OUTSIDE RECORDS SUMMARY | 2023-11-16 06:28 | XMS_ITS | Encounter Summary ---
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 Psyllium Seed-Sucrose (0) Powder Take by mouth 2 times daily as needed. allopurinoL (Zyloprim) 100 mg tablet Take 200 mg by mouth daily. amLODIPine (Norvasc) 5 mg tablet Take 5 mg by mouth daily. ONETOUCH ULTRA BLUE TEST STRIP Strip USE TO TEST DAILY 3 03/13/2018 ONE TOUCH DELICA 33 gauge Misc USE TO TEST DAILY 4 03/11/2018 ONETOUCH ULTRASOFT LANCETS [facility] USE TO TEST DAILY 2 [...] progressive diffuse large B-cell lymphoma 09/12/2023 10/10/2023 lactobacillus (BACID) Capsule Take 1 tablet by mouth daily. 10/17/2023 documented as of this encounter Plan of Treatment Upcoming Encounters Date Type Department Care Team (Late st Contact Info) Description 11/21/2023 9:30 AM EDT Office Visit Hematology/Oncology at [address] [address] Adrianne Ramon MD [facility] [address] [place] [address] Yael Merlos APRN [facility] [place] [address] 11/21/2023 10:00 AM EDT Infusion Hematology Oncology at [address] [phone] 11/23/2023 11:00 AM EDT Office Visit Hematology [place] [phone] Reynold Proctor MD [facility] [place] [address] 11/23/2023 1:00 PM EDT Appointment Hematology [place] [phone] 11/23/2023 2:00 PM EDT Office Visit Hematology [place] [phone] Micha Givens Jr., MD [facility] [place] [address] 11/23/2023 3:30 PM EDT Hospital [place] [address] Micha Givens Jr., MD [facility] [address] [place] [address] Pending Results Name Type Priority Associated Diagnoses [...] nodes of multiple regions TYPE AND SCREEN ([facility]/CGP/MARCELINA) Routine 09/21/2023 11:14 AM EDT Diffuse large [...] Jr., MD BLOOD BANK LAB ORDER DUONG [facility] [place] [address] * Direct antiglobulin test (09/21/2023 11:14 AM EDT) [facility] Poly Negative [facility] 09/21/2023 11:1 4 AM EDT 09/21/2023 11:14 AM EDT Micha Givens Jr., MD BLOOD BANK LAB ORDER DUONG [facility] [place] [address] * Type and Screen Validity (09/21/2023 11:14 AM EDT) [facility] T&S only valid at [facility] LABORATORY Comment:This Type and Screen result is only valid at the [facility] Hospital Blood 09/21/2023 11:1 4 AM EDT 09/21/2023 11:31 AM EDT Narrative Resulting Agency Comment Spec In Lab Micha Givens Jr., MD BLOOD BANK LAB ORDER DUONG [facility] [place] [address] * ABORH Recheck Status (09/21/2023 11:14 AM EDT) Pathologist [facility] ABORH Recheck Order Order Placed [facility] ABORH Type Recheck not performed [facility] Blood 09/21/2023 11:1 4 AM EDT 09/21/2023 11:31 AM EDT Narrative Resulting Agency Comment Spec In Lab Micha Givens Jr., MD BLOOD BANK LAB ORDER DUONG [facility] [place] [address] * (ABNORMAL) Differential, Automated (09/21/2023 11:14 AM EDT) Neutrophil % 90.8 % [facility] Neutrophil Absolute 6.59(H) 1.70 - 6.10 x10(3)/mc L [facility] Lymph % 5.1 % [facility] Lymphocytes Abs 0.4(L) 0.9 - 3.2 x10(3)/mc L [facility] Monocyte % 3.0 % [facility] Monocyte Abs 0.2(L) 0.3 - 0.9 x10(3)/mc L [facility] Eos % 0.4 % [facility] Eosinophils Abs 0.0 0.0 - 0.4 x10(3)/mc L [facility] Basophil % 0.1 % [facility] Baso Absolute 0.0 0.0 - 0.1 x10(3)/mc L [facility] Immature Gran [...] HEMATOLOGY ORDERABLE S [facility] [place] [address] * (ABNORMAL) Hemogram (09/21/2023 11:14 AM EDT) White Blood Cell 7.3 4.0 - 9.5 x10(3)/mc L [facility] Red Blood Cell 4.20(L) 4.58 - 5.54 x10(6)/mc L [facility] Hemoglobin 12.3(L) 13.7 - 16.5 g/dL [facility] Hematocrit 38.4(L) 40.5 - 48.5 % [facility] Mean Cell Volume 91.4 82.9 - 93.1 [facility]ORATORY Mean Cell Hemoglobin 29.3 27.5 - 32.1 pg [facility] Mean Cell Hemoglobin Concentration 32.0 32.0 - 35.7 g/dL [facility] Platelet 152 145 - 357 x10(3)/mc L [facility] RDW Standard Deviation 48.4(H) 36.0 - 45.0 [facility] RDW coefficient of variation 14.5(H) 11.4 - 13.8 % [facility] Mean Platelet Volume 11.5 7.6 - 12.9 [facility] LABORATORY NRBC% auto 0.0 % [facility] NRBC Absolute 0.000 0.000 - 0.000 x10(3)/[facility] LABORATORY Blood 09/21/2023 11:1 4 AM EDT 09/21/2023 11:30 AM EDT Narrative Resulting Agency Comment Spec In Lab Micha Givens Jr., MD HEMATOLOGY ORDERABLE S [facility] [place] [address] * Hemoglobin S Screen (09/21/2023 11:14 AM EDT) HGB S Screen Screen Negative Screen Negative [facility] Blood 09/21/2023 11:1 4 AM EDT 09/21/2023 11:30 AM EDT Narrative Resulting Agency Comment Spec In Lab Micha Givens Jr., MD HEMATOLOGY ORDERABLE S [facility] [place] [address] * Type and screen ([facility]/CGP/MARCELINA) (09/21/2023 11:14 AM EDT) ABORH Type O NEGATIVE [facility] Patient BB History Not Found [facility] Expires at [id number] on: 09/24/2023 [facility] Ab Screen Interp Negative [facility] Blood 09/21/2023 11:1 4 AM EDT 09/21/2023 11:14 AM EDT Narrative [facility] - 09/21/2023 11:14 AM EDT This Type and Screen result is only valid at the [facility] Hospital Resulting Agency Comment Spec In Lab Micha Givens Jr., MD BLOOD BANK LAB ORDER DUONG [facility] [place] [address] * (ABNORMAL) Iron and TIBC (09/21/2023 11:14 AM EDT) Iron 39(L) 45 - 160 mcg/dL [facility] TIBC 255 250 - 450 mcg/dL [facility] Iron Saturation 15(L) 20 - 50 % [facility] Blood 09/21/2023 11:1 4 AM EDT 09/21/2023 11:30 AM EDT Narrative Resulting Agency Comment Spec In Lab Micha Givens Jr., MD CHEMISTRY ORDERABLES Performing Organization Address [facility] Co de Phone Number [facility] [place] [address] * (ABNORMAL) CRP, acute inflammation (09/21/2023 11:14 AM EDT) C-Reactive Protein 52.8(H) <=4.9 mg/L [facility] Blood 09/21/2023 11:1 4 AM EDT 09/21/2023 11:30 AM EDT Narrative Resulting Agency Comment Spec In Lab Micha Givens Jr., MD CHEMISTRY ORDERABLES Performing Organization Address [facility] Co de Phone Number [facility] [place] [address] * Ferritin (09/21/2023 11:14 AM EDT) Ferritin 393 31 - 409 ng/mL [facility] Comment: Please note that as of 01/24/2023, the reference intervals for Ferritin have been updated. Blood 09/21/2023 11:1 4 AM EDT 09/21/2023 11:30 AM EDT Narrative Resulting Agency Comment Spec In Lab Micha Givens Jr., MD CHEMISTRY ORDERABLES Performing Organization Address [facility] Co de Phone Number [facility] [place] [address] * Uric acid (09/21/2023 11:14 AM EDT) Uric Acid 5.1 3.5 - 8.5 mg/dL [facility] Blood 09/21/2023 11:1 4 AM EDT 09/21/2023 11:30 AM EDT Narrative Resulting Agency Comment Spec In Lab Micha Givens Jr., MD CHEMISTRY ORDERABLES Performing Organization Address [facility] Co de Phone Number [facility] [place] [address] * Calcium, Ionized, Serum (09/21/2023 11:14 AM EDT) Ionized Calcium 1.25 1.15 - 1.33 mmol/L [facility] Comment: Note: Total bilirubin higher than 20 mg/dL may lead to falsely low ionized calcium. This test has not been cleared by the [place] FDA. Performance characteristics of this test were determined by [facility] in accordance with CLIA requirements. This laboratory is qualified under CLIA to perform high-complexity testing. Blood 09/21/2023 11:1 4 AM EDT 09/21/2023 11:30 AM EDT Narrative Resulting Agency Comment Spec In Lab Micha Givens Jr., MD CHEMISTRY ORDERABLES Performing Organization Address [facility] Co de Phone Number [facility] [place] [address] * Toxoplasma Antibody, IgM (09/21/2023 11:14 AM EDT) Toxoplasma Antibody IgM Negative Negative [facility] Blood 09/21/2023 11:1 4 AM EDT 09/21/2023 1:04 PM EDT Narrative Resulting Agency Comment Spec In Lab Micha Givens Jr., MD IMMUNOLOGY ORDERABLE S Performing Organization Address [facility] Co de Phone Number [facility] [place] [address] * Toxoplasma Antibody, IgG (09/21/2023 11:14 AM EDT) Toxoplasma Antibody IgG Negative Negative [facility] Blood 09/21/2023 11:1 4 AM EDT 09/21/2023 1:04 PM EDT Narrative Resulting Agency Comment Spec In Lab Micha Givens Jr., MD IMMUNOLOGY ORDERABLE S Performing Organization Address [facility] de Phone Number [facility] [place] [address] * PSA Screen (09/21/2023 11:14 AM EDT) [...] Jr., MD CHEMISTRY ORDERABLES Performing Organization Address [facility] de Phone Number [facility] [place] [address] * Phosphorus (09/21/2023 11:14 AM EDT) Phosphorus 2.9 2.5 - 4.5 mg/dL [facility] Blood 09/21/2023 11:1 4 AM EDT 09/21/2023 11:30 AM EDT Narrative Resulting Agency Comment Spec In Lab Micha Givens Jr., MD CHEMISTRY ORDERABLES Performing Organization Address [facility] Co de Phone Number [facility] [place] [address] * Magnesium (09/21/2023 11:14 AM EDT) Magnesium 0.80 0.69 - 1.07 mmol/L [facility] Blood 09/21/2023 11:1 4 AM EDT 09/21/2023 11:30 AM EDT Narrative Resulting Agency Comment Spec In Lab Micha Givens Jr., MD CHEMISTRY ORDERABLES Performing Organization Address City/[facility]/ZIP Co de Phone Number [facility] [place] [address] * Varicella zoster Antibody, IgG (09/21/2023 11:14 AM EDT) Varicella Zoster Antibody IgG Positive Positive [facility] Comment: A positive result for this assay is considered to be an indicator of positive immune status. Blood 09/21/2023 11:1 4 AM EDT 09/21/2023 1:04 PM EDT Narrative Resulting Agency Comment Spec In Lab Micha Givens Jr., MD IMMUNOLOGY ORDERABLE S Performing Organization Address City/[facility]/ZIP Co de Phone Number [facility] [place] [address] * HSV 1 and 2 IgG Antibodies (09/21/2023 11:14 AM EDT) HSV Type 1 Ab, IgG Negative Negative [facility] HSV Type 2 Ab, IgG Negative Negative [facility] Blood 09/21/2023 11:1 4 AM EDT 09/21/2023 1:04 PM EDT Narrative Resulting Agency Comment Spec In Lab Micha Givens Jr., MD IMMUNOLOGY ORDERABLE S Performing Organization Address City/[facility]/ZIP Co de Phone Number [facility] [place] [address] * (ABNORMAL) Alton-Dominguez Virus Antibodies (09/21/2023 11:14 AM EDT) EBV (VCA) IgG Ab Positive(A) Negative [facility] EBV (VCA) IgM Ab Negative Negative [facility] EBNA Antibodies Positive(A) Negative MA [facility] EBV Interpretation Past EBV infection. [place] [...] MD IMMUNOLOGY ORDERABLE S Performing Organization Address [facility] Co de Phone Number [facility] [place] [address] * CMV Antibody, IgM (09/21/2023 11:14 AM EDT) CMV IgM Negative Negative [facility] Blood 09/21/2023 11:1 4 AM EDT 09/21/2023 1:04 PM EDT Narrative Resulting Agency Comment Spec In Lab Micha Givens Jr., MD IMMUNOLOGY ORDERABLE S Performing Organization Address [facility] Co de Phone Number [facility] [place] [address] * CMV Antibody, IgG (09/21/2023 11:14 AM EDT) CMV IgG Negative Negative [facility] Blood 09/21/2023 11:1 4 AM EDT 09/21/2023 1:04 PM EDT Narrative Resulting Agency Comment Spec In Lab Micha Givens Jr., MD IMMUNOLOGY ORDERABLE S Performing Organization Address [facility] Co de Phone Number [facility] [place] [address] * (ABNORMAL) Lactate Dehydrogenase (09/21/2023 11:14 AM EDT) Lactate Dehydrogenase 426(H) 110 - 220 unit/L [facility] Blood 09/21/2023 11:1 4 AM EDT 09/21/2023 11:30 AM EDT Narrative Resulting Agency Comment Spec In Lab Micha Givens Jr., MD CHEMISTRY ORDERABLES [facility] [place] [address] * (ABNORMAL) Comprehensive metabolic panel (non-fasting) (09/21/2023 11:14 AM EDT) Glucose 326(H) 65 - 199 mg/dL [place] [...] MD CHEMISTRY ORDERABLES [facility] [place] [address] * Urinalysis with reflex Culture (09/21/2023 11:11 [...] HOSPITAL LABORATORY Leukocytes, Urine Dipstick Negative Negative [facility]ORY Appearance, Urine Dipstick Clear Clear [facility] Specific [place] Urine Automated 1.009 1.005 - 1.030 [facility] Color, Urine Dipstick Yellow Yellow [facility] Reflex to Culture No [facility] Clean Catch Urine 09/21/2023 11:11 AM EDT 09/21/2023 11:33 AM EDT Narrative Resulting Agency Comment Spec In Lab Micha Givens Jr., MD URINE ORDERABLES Performing Organization Address City/State/[facility] Co de Phone Number [facility] [place] [address] documented in this encounter Visit Diagnoses Diagnosis 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 Pre-op testing Preoperative examination, unspecified Prostate cancer screening Special screening for malignant neoplasm of prostate Iron deficiency anemia, unspecified iron deficiency anemia type documented in this encounter Care Teams Health Information Specialist Relationship Specialty Start Date End Date Frederick Meade MD [address] [place] [address] PCP - General Family Medicine 11/29/17 documented as of this encounter
--- OUTSIDE RECORDS SUMMARY | 2023-11-16 06:28 | XMS_ITS | Encounter Summary ---
Author Organization [facility] Address [facility] [place] [address] Care Team Providers Care Gutter Mouth Cutter Name Role Phone Frederick Meade MD Primary Care Provider [phone] Encounter Details Date Type Department Care Team (Late st Contact Info) Description 10/15/2023 Orders Only Hematology Oncology at [address] [address] Lucía Nelson, RN Diffuse large [...] AM EDT Office Visit Hematology/Oncology at [address] [address] Adrianne Ramon MD [facility] [address] [place] [address] Yael Merlos APRN [facility] [place] [address] 11/21/2023 10:00 AM EDT Infusion Hematology Oncology at [address] [address] 11/23/2023 11:00 AM EDT Office Visit [place]ematology [place] [address] Reynold Proctor MD [facility] [place] [address] 11/23/2023 1:00 PM EDT Appointment Hematology [place] [address] 11/23/2023 2:00 PM EDT Office Visit [place]ology [place] [address] Micha Givens Jr., MD [facility] [address] [place] [address] 11/23/2023 3:30 PM EDT Hospital [place] [address] Micha Givens Jr., MD [facility] [place] [address] documented as of this encounter Visit Diagnoses Diagnosis Diffuse large B-cell lymphoma of lymph nodes of multiple regions documented in this encounter Care Teams Gutter Mouth Cutter Relationship Specialty Start Date End Date Frederick Meade MD [address] [place] [address] PCP - General Family Medicine 11/29/17 documented as of this encounter
--- OUTSIDE RECORDS SUMMARY | 2023-11-16 06:28 | XMS_ITS | Encounter Summary ---
Author Organization [facility] [place] [address] Care Team Providers Care Methods Engineer Name Role Phone Frederick Meade MD Primary Care Provider [phone] Encounter Details Date Type Department Care Team (Latest Contact Info) Description 10/10/2023 1:04 PM EDT - 10/10/2023 2:13 PM EDT Hospital Encounter [place] [address] Discharge Disposition: Home Social History Tobacco Use [...] 100 unit/mL (70-30) Solution Inject subcutaneously daily. loratadine (Claritin) 10 mg Tablet Take 10 [...] TEST DAILY 4 03/11/2018 ONETOUCH ULTRASOFT LANCETS [facility] USE TO TEST DAILY 2 06/07/2018 colchicine (COLCRYS) 0.6 mg Tablet Take 0.6 mg by mouth daily as needed (for Gout flare). Ibuprofen 200 mg Capsule Take by mouth 4 times daily as needed. Reported on 05/24/2016 aspirin 81 mg Tablet, Chewable Take 325 mg by mouth daily. potassium chloride ER (Klor-Con M) 20 mEq ER micro-encapsulated crystal tablet Take 1 tablet by mouth daily for 30 days. 30 tablet 1 10/03/2023 11/02/2023 lactobacillus (BACID) Capsule Take 1 tablet by mouth daily. 10/17/2023 documented as of this encounter Progress Notes [...] 9:30 AM EDT Office Visit Hematology/Oncology at [address] [address] Adrianne Ramon MD [facility] HEMATOLOGY [place] [address] Yael Merlos APRN [facility] HEMATOLOGY [place] [address] 11/21/2023 10:00 AM EDT Infusion Hematology Oncology at [address] [address] 11/23/2023 11:00 AM EDT Office Visit [place] [address] Reynold Proctor MD [facility] [place] [address] 11/23/2023 1:00 PM EDT Appointment [place]ology [place] [address] 11/23/2023 2:00 PM EDT Office Visit Hematology and Oncology at [place] [phone] Micha Givens Jr., MD [facility] DR HEMATOLOGY [place] [address] 11/23/2023 3:30 PM EDT [place] [phone] Micha Givens Jr., MD [facility] DR HEMATOLOGY [place] [address] documented as of this encounter Visit Diagnoses Not on filedocumented in this encounter Care Teams Methods Engineer Relationship Specialty Start Date End Date Frederick Meade MD [address] [place] [address] PCP - General Family Medicine 11/29/17 documented as of this encounter
--- OUTSIDE RECORDS SUMMARY | 2023-11-16 06:28 | XMS_ITS | Encounter Summary ---
[place] [address] Care Team Providers Care Briar Wood Sorter Name Role Phone Frederick Meade MD Primary Care Provider [phone] Encounter Details Date Type Department Care Team (Latest Contact Info) Description 09/21/2023 10:30 AM EDT Clinical Support [place]ematology [place] [phone] Danii Her, RN Diffuse large B-cell lymphoma [...] be ready for shipment. Patient returns to [facility] for 3-5 days of chemotherapy (outpatient). Cell Infusion - admission for a minimum of 7 days (our [facility] standard is 14) for monitoring. 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 Stay within 1 hour [facility] for 4 weeks post infusion. Caregiver required [...] maintenance records: colo - Last completed at [facility] in 2011 Dental: False teeth, all teeth removed years ago. We discussed role of social work specialist for pretransplant assessment and as a resource [...] post CAR T. We will have oncology interlocking installer re-enforce food safety guidelines post CAR T [...] AM EDT Office Visit Hematology/Oncology at [address] [phone] Adrianne Ramon MD [facility] [place] [address] Yael Merlos APRN [facility] [place] [address] 11/21/2023 10:00 AM EDT Infusion Hematology Oncology at [address] [phone] 11/23/2023 11:00 AM EDT Office Visit Hematology and Oncology at [place] [phone] Reynold Proctor MD [facility] [place] [address] 11/23/2023 1:00 PM EDT Appointment Hematology and Oncology at [place] [address] 11/23/2023 2:00 PM EDT Office Visit Hematology and Oncology at [place] [address] Micha Givens Jr., MD [facility] [address] [place] [address] 11/23/2023 3:30 PM EDT [place] [address] Micha Givens Jr., MD [facility] [address] [place] [address] documented as of this encounter Visit Diagnoses Diagnosis Diffuse large B-cell lymphoma of lymph nodes of multiple regions documented in this encounter Care Teams Briar Wood Sorter Relationship Specialty Start Date End Date Frederick Meade MD [address] [place] [address] PCP - General Family Medicine 11/29/17 documented as of this encounter
--- OUTSIDE RECORDS SUMMARY | 2023-11-16 06:28 | XMS_ITS | Encounter Summary ---
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 Hematology Clinic [facility] [place] [address] HEMATOLOGY PATIENT EVALUATION PROBLEM LIST: Patient Active [...] to consultation, he saw [facility] in [facility] and when to [facility]. No beds so sent to [facility] for [address] CAP, [...] days with nice response. Pathology from [facility] reports large B-cell lymphoma. Double expresser. [...] earlier in the week with constipation. Appreciate customer supply chain analyst and recommendations. Cheo is here today [...] and needle of cervical LN. FISH from [facility] No MYCrearrangement and no fusion of MYC [...] Enjoys reads, movies, race car, cards. [employer]. 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 Not a . ETOH: 1-3 beers per week Smoking: Quit 1985. Approximately 84-lhgf-iisr history Vaping or electronic cigarettes: denies Chewing [...] is a delightful 73-year old male in [facility]. He is accompanied to the clinic [...] History Not Found T&S only valid at [facility] Hosp AB[facility]H Recheck Order Order Placed ABORH [...] and BCL-2 protein (Double Expressor.) Flow cytometry ([id number]) supports this interpretation. FISH from [facility] No MYC rearrangement and no fusion of MYC and IGH was observed, CD3 (SP7, Thermo Scientific) Background T-cells CD20 (L26, [place]) diffusely positive in Neoplastic B-cells PAX-5 (1EW, Leica) diffusely positive in Neoplastic B-cells CD10 (SP67, [place]) Negative BCL-6 (G/191E/A8, [place]) Positive MUM-1 (MUM1p, [place]) Positive Myc (Y69, Abcam) Positive BCL-2 Oncoprotein (124, [place]) Positive Ki67 (MIB-1) (K2, Leica) Greater than 95% of cells in cycle Cyclin D1(SP4-R, [place]) Negative SAPPHIRE JOSE ([id number]-F, Leica) Negative. DIAGNOSTICS: [facility] ECHO EF 60% 01/25/23 ECHO after C#5 EF 50-55% 11/28/22 ECHO after C#2 EF 52% 11/06/22 ECHO after C#1 [facility] EF = 52% Interpretation Summary LV [...] at least 1 month spent locally at [facility] and local hospital. Unfortunately, because ofhis age, [...] concepts, and the time it entails at [facility]. This would be a significant commitment for the patient and his family as they live [place] hours away from [facility]. They feel comfortable that they have [...] patients were alive and relapse free. Finally [facility] September 19, 2016, Robb Hernandez et al, [...] 9:30 AM EDT Office Visit Hematology/Oncology at [address] [phone] Adrianne Ramon MD [facility] [address] [place] [address] Yael Merlos APRN [facility] [place] [address] 11/21/2023 10:00 AM EDT Infusion Hematology Oncology at [address] [phone] 11/23/2023 11:00 AM EDT Office Visit Hematology [place] [address] Reynold Proctor MD [facility] [place] [address] 11/23/2023 1:00 PM EDT Appointment Hematology and Oncology at [place] [phone] 11/23/2023 2:00 PM EDT Office Visit Hematology and Oncology at [place] [phone] Micha Givens Jr., MD [facility] [place] [address] 11/23/2023 3:30 PM EDT Hospital Encounter MRI at [place] [phone] Micha Givens Jr., MD [facility] [place] [address] documented as of this encounter Procedures Procedure [...] regions documented in this encounter Care Teams Sample Sawyer Relationship Specialty Start Date End Date Frederick Meade MD [address] [place] [address] PCP - General Family Medicine 11/29/17 documented as of this encounter
--- OUTSIDE RECORDS SUMMARY | 2023-11-16 06:28 | XMS_ITS | Encounter Summary ---
Author Organization [facility] [place] [address] Care Team Providers Care Nibbler Operator Name Role Phone Frederick Meade MD Primary Care Provider [phone] Encounter Details Date Type Department Care Team [...] 9:30 AM EDT Office Visit Hematology/Oncology at [address] [phone] Adrianne Ramon MD [facility] DR HEMATOLOGY [place] [address] Yael Merlos APRN [facility] [address] [place]EM[place] [address] 11/21/2023 10:00 AM EDT Infusion Hematology Oncology at [address] [phone] 11/23/2023 11:00 AM EDT Office Visit Hematology [place] [phone] Reynold Proctor MD [facility] [place] [address] 11/23/2023 1:00 PM EDT Appointment Hematology [place] [phone] 11/23/2023 2:00 PM EDT Office Visit Hematology [place] [phone] Micha Givens Jr., MD [facility] HEMATOLOGY [place] [address] 11/23/2023 3:30 PM EDT Hospital [place] [address] Micha Givens Jr., MD [facility] [address] HEMATOLOGY [place] [address] documented as of this encounter Visit Diagnoses Not on filedocumented in this encounter Care Teams Nibbler Operator Relationship Specialty Start Date End Date Frederick Meade MD [address] [place] [address] [address] [place] [address] PCP - General Family Medicine 11/29/17 documented as of this encounter
--- OUTSIDE RECORDS SUMMARY | 2023-11-16 06:28 | XMS_ITS | Encounter Summary ---
Author Organization [facility] [place] [address] Care Team Providers Care Home Based Assistant Name Role Phone Frederick Meade MD Primary Care Provider [phone] Reason for Referral * Consultation (Routine) - Authorized Specialty Diagnoses / Procedures Referred By Paul bowen Referred To Contact Gastroenterology Diagnoses Screening for colon cancer 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 Pre-op testing Micha Givens Jr., MD [facility] [address] [place] [address] Referral ID Status Reason Start Date Expiration Date Visits Requested Visits Authorized [id number] Authorized Test Only 09/26/2023 03/24/2024 1 1 Encounter Details Date Type Department Care Team (Late st Contact Info) Description 09/25/2023 Orders Only Hematology [place] [address] Micha Givens Jr., MD [facility] [place] [address] Screening for colon cancer; Diffuse large B-cell [...] AM EDT Office Visit Hematology/Oncology at [address] [phone] Adrianne Ramon MD [facility] HEMATOLOGY [place] [address] Yael Merlos APRN [facility] HEMATOLOGY [place] [address] 11/21/2023 10:00 AM EDT Infusion Hematology Oncology at [address] [phone] 11/23/2023 11:00 AM EDT Office Visit Hematology [place] [phone] Reynold Proctor MD [facility] [place] [address] 11/23/2023 1:00 PM EDT Appointment Hematology [place] [phone] 11/23/2023 2:00 PM EDT Office Visit Hematology [place] [phone] Micha Givens Jr., MD [facility] [address] [place] [address] 11/23/2023 3:30 PM EDT Hospital [place] [address] Micha Givens Jr., MD [facility] DR [place] [address] Scheduled Referrals Name Type Priority Associated Diagnoses [...] unspecified documented in this encounter Care Teams Home Based Assistant Relationship Specialty Start Date End Date Frederick Meade MD [address] [place] [address] [address] [place] [address] PCP - General Family Medicine 11/29/17 documented as of this encounter
--- OUTSIDE RECORDS SUMMARY | 2023-11-16 06:28 | XMS_ITS | Encounter Summary ---
Author Organization [facility] [place] [address] Care Team Providers Care Station Inspector Name Role Phone Frederick Meade MD Primary Care Provider [phone] Reason for Referral * Consultation (Routine) - Authorized Specialty Diagnoses / Procedures Referred By Paul bowen Referred To Contact Hris Specialist Diagnoses 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 Pre-op testing Micha Givens Jr., MD [facility] DR HEMATOLOGY [place] [address] Maria L Barnes MSW Referral ID Status Reason Start Date Expiration Date Visits Requested Visits Authorized [id number] Authorized Consult, Test & Treat 09/21/2023 09/20/2024 1 1 * Consultation (Routine) - Authorized Specialty Diagnoses / Procedures Referred By Paul bowen Referred To Contact Diagnoses 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 Pre-op testing Micha Givens Jr., MD [facility] DR HEMATOLOGY [place] [address] [facility] [place] [address] Referral ID Status Reason Start Date Expiration Date Visits Requested Visits Authorized [id number] Authorized Continuity of Care 09/21/2023 09/20/2024 1 1 Encounter Details Date Type Department Care Team (Late st Contact Info) Description 09/21/2023 Orders Only Hematology and Oncology at [facility] [place] [address] Micha Givens Jr., MD [facility] HEMATOLOGY [place] [address] Diffuse large B-cell lymphoma of lymph nodes [...] AM EDT Office Visit Hematology/Oncology at [address] [phone] Adrianne Ramon MD [facility] [place] [address] Yael Merlos APRN [facility] [place] [address] 11/21/2023 10:00 AM EDT Infusion Hematology Oncology at [address] [phone] 11/23/2023 11:00 AM EDT Office Visit Hematology [place] [phone] Reynold Proctor MD [facility] [place] [address] 11/23/2023 1:00 PM EDT Appointment Hematology [place] [address] 11/23/2023 2:00 PM EDT Office Visit Hematology [place] [phone] Micha Givens Jr., MD [facility] [place] [address] 11/23/2023 3:30 PM EDT Hospital [place] [phone] Micha Givens Jr., MD [facility] [place] [address] Pending Results Name Type Priority Associated Diagnoses [...] PFT FEV1/FVC Pre-BD Z-Score -2.14 COMPAS PFT UGG90-45 Actual Pre-BD 1.11 % COMPAS PFT UXZ99-83 Predicted 2 % COMPAS PFT LKQ52-61 Pre-BD % of Predicted 56 % COMPAS PFT GJH57-47 Pre-BD Z-Score -1.17 COMPAS PFT DLCO Hb [...] Jr., MD PFT ORDERABLES Performing Organization Address [facility] de Phone Number COMPAS PFT * EKG 12 Lead (10/10/2023 2:40 PM EDT) Ventricular rate 59 BPM MUSE SYSTEM Atrial Rate 59 BPM MUSE SYSTEM P-R Interval 158 ms MUSE SYSTEM QRS Duration 88 ms MUSE SYSTEM Q-T Interval 394 ms MUSE SYSTEM QTC Calculated (Bezet) 390 ms MUSE SYSTEM Calculated P [place] 67 degrees MUSE SYSTEM Calculated R [place] 32 degrees MUSE SYSTEM INTERPRETATION Sinus bradycardia Nonspecific ST abnormality Abnormal ECG No previous ECGs available Confirmed by MD Lavelle, James ([id number]) on 10/14/2023 10:09:54 PM MUSE SYSTEM 10/10/2023 2:40 PM EDT 10/14/2023 10:09 PM EDT Micha Givens Jr., MD ECG ORDERABLES Performing Organization Address [facility] de Phone Number MUSE SYSTEM * XR Chest PA & Lateral (Generic) (10/10/2023 2:21 PM EDT) WORKSTATION ID [id number] DH RAD Anatomical Region Laterality Modality Chest [...] who have questions please contact the health nonfarm animal caretaker that requested your imaging first. ? Electronically signed by: Davey Tolentino MD, [facility] ??([phone]), at 10/11/2023 11:50 AM Narrative 10/11/2023 11:50 [...] patients who have questions please contactthe health nonfarm animal caretaker that requested your imaging first. Electronically signed by: Davey Tolentino MD, [facility]([phone]), at 10/11/2023 11:50 AM Micha Givens Jr., [...] Jr., MD CHEMISTRY ORDERABLES Performing Organization Address [facility] de Phone Number [facility] [place] [address] * (ABNORMAL) CRP, acute inflammation (09/21/2023 11:14 AM EDT) C-Reactive Protein 52.8(H) <=4.9 mg/L [facility] Blood 09/21/2023 11:1 4 AM EDT 09/21/2023 11:30 AM EDT Narrative Resulting Agency Comment Spec In Lab Micha Givens Jr., MD CHEMISTRY ORDERABLES Performing Organization Address [facility] de Phone Number [facility] [place] [address] * Ferritin (09/21/2023 11:14 AM EDT) Ferritin 393 31 - 409 ng/mL [facility] Comment: Please note that as of 01/24/2023, the reference intervals for Ferritin have been updated. Blood 09/21/2023 11:1 4 AM EDT 09/21/2023 11:30 AM EDT Narrative Resulting Agency Comment Spec In Lab Micha Givens Jr., MD CHEMISTRY ORDERABLES Performing Organization Address [facility] Co de Phone Number [facility] [place] [address] * Uric acid (09/21/2023 11:14 AM EDT) Uric Acid 5.1 3.5 - 8.5 mg/dL [facility] Blood 09/21/2023 11:1 4 AM EDT 09/21/2023 11:30 AM EDT Narrative Resulting Agency Comment Spec In Lab Micha Givens Jr., MD CHEMISTRY ORDERABLES Performing Organization Address [facility] de Phone Number [facility] [place] [address] * Calcium, Ionized, Serum (09/21/2023 11:14 AM EDT) Ionized Calcium 1.25 1.15 - 1.33 mmol/L [facility] Comment: Note: Total bilirubin higher than 20 mg/dL may lead to falsely low ionized calcium. This test has not been cleared by the [place] FDA. Performance characteristics of this test were determined by [facility] in accordance with CLIA requirements. This laboratory is qualified under CLIA to perform high-complexity testing. Blood 09/21/2023 11:1 4 AM EDT 09/21/2023 11:30 AM EDT Narrative Resulting Agency Comment Spec In Lab Micha Givens Jr., MD CHEMISTRY ORDERABLES Performing Organization Address [facility] de Phone Number [facility] [place] [address] * Toxoplasma Antibody, IgM (09/21/2023 11:14 AM EDT) Toxoplasma Antibody IgM Negative Negative [facility] Blood 09/21/2023 11:1 4 AM EDT 09/21/2023 1:04 PM EDT Narrative Resulting Agency Comment Spec In Lab Micha Givens Jr., MD IMMUNOLOGY ORDERABLE S Performing Organization Address [facility] Co de Phone Number [facility] [place] [address] * Toxoplasma Antibody, IgG (09/21/2023 11:14 AM EDT) Toxoplasma Antibody IgG Negative Negative [facility] Blood 09/21/2023 11:1 4 AM EDT 09/21/2023 1:04 PM EDT Narrative Resulting Agency Comment Spec In Lab Micha Givens Jr., MD IMMUNOLOGY ORDERABLE S Performing Organization Address [facility] Co de Phone Number [facility] [place] [address] * PSA Screen (09/21/2023 11:14 AM EDT) [...] Jr., MD CHEMISTRY ORDERABLES Performing Organization Address [facility] Co de Phone Number [facility] [place] [address] * Phosphorus (09/21/2023 11:14 AM EDT) Phosphorus 2.9 2.5 - 4.5 mg/dL [facility] Blood 09/21/2023 11:1 4 AM EDT 09/21/2023 11:30 AM EDT Narrative Resulting Agency Comment Spec In Lab Micha Givens Jr., MD CHEMISTRY ORDERABLES Performing Organization Address [facility] Co de Phone Number [facility] [place] [address] * Magnesium (09/21/2023 11:14 AM EDT) Magnesium 0.80 0.69 - 1.07 mmol/L [facility] Blood 09/21/2023 11:1 4 AM EDT 09/21/2023 11:30 AM EDT Narrative Resulting Agency Comment Spec In Lab Micha Givens Jr., MD CHEMISTRY ORDERABLES [facility] [place] [address] * Type and screen ([facility]/MARCELINA) (09/21/2023 11:14 AM EDT) ABORH Type O NEGATIVE [facility] Patient BB History Not Found [facility] Expires at 2359 on: 09/24/2023 [facility] Ab Screen Interp Negative [facility] Blood 09/21/2023 11:1 4 AM EDT 09/21/2023 11:14 AM EDT Narrative [facility] - 09/21/2023 11:14 AM EDT This Type and Screen result is only valid at the [facility] Resulting Agency Comment Spec In Lab Micha Givens Jr., MD BLOOD BANK LAB ORDER DUONG Performing Organization Address City/[facility]/ZIP Co de Phone Number [facility] [place] [address] * Varicella zoster Antibody, IgG (09/21/2023 11:14 AM EDT) Pathologist [facility] Varicella Zoster Antibody IgG Positive Positive [facility] Comment: A positive result for this assay is considered to be an indicator of positive immune status. Blood 09/21/2023 11:1 4 AM EDT 09/21/2023 1:04 PM EDT Narrative Resulting Agency Comment Spec In Lab Micha Givens Jr., MD IMMUNOLOGY ORDERABLE S [facility] [place] [address] * HSV 1 and 2 IgG Antibodies (09/21/2023 11:14 AM EDT) Pathologist [facility] HSV Type 1 Ab, IgG Negative Negative [facility] HSV Type 2 Ab, IgG Negative Negative [facility] Blood 09/21/2023 11:1 4 AM EDT 09/21/2023 1:04 PM EDT Narrative Resulting Agency Comment Spec In Lab Micha Givens Jr., MD IMMUNOLOGY ORDERABLE S [facility] [place] [address] * (ABNORMAL) Alton-Dominguez Virus Antibodies (09/21/2023 11:14 AM EDT) EBV (VCA) IgG Ab Positive(A) Negative [facility] EBV (VCA) IgM Ab Negative Negative [facility] EBNA Antibodies Positive(A) Negative MA [facility] EBV Interpretation Past EBV infection. [facility] [...] MD IMMUNOLOGY ORDERSONY S Performing Organization Address City/[facility]/ZIP Co de Phone Number [facility] [place] [address] * CMV Antibody, IgM (09/21/2023 11:14 AM EDT) CMV IgM Negative Negative [facility] Blood 09/21/2023 11:1 4 AM EDT 09/21/2023 1:04 PM EDT Narrative Resulting Agency Comment Spec In Lab Micha Givens Jr., MD IMMUNOLOGY ORDERABLE S [facility] [place] [address] * CMV Antibody, IgG (09/21/2023 11:14 AM EDT) CMV IgG Negative Negative [facility] Blood 09/21/2023 11:1 4 AM EDT 09/21/2023 1:04 PM EDT Narrative Resulting Agency Comment Spec In Lab Micha Givens Jr., MD IMMUNOLOGY ORDERABLE S [facility] [place] [address] * Urinalysis with reflex Culture (09/21/2023 11:11 [...] LABORATORY Leukocytes, Urine Dipstick Negative Negative [facility] Appearance, Urine Dipstick Clear Clear [facility] Specific [place] Urine Automated 1.009 1.005 - 1.030 [facility] Color, Urine Dipstick Yellow Yellow [facility] Reflex to Culture No [facility] Clean Catch Urine 09/21/2023 11:11 AM EDT 09/21/2023 11:33 AM EDT Narrative Resulting Agency Comment Spec In Lab Micha Givens Jr., MD URINE ORDERABLES [facility] [place] [address] documented in this encounter Visit Diagnoses Diagnosis [...] unspecified documented in this encounter Care Teams Station Inspector Relationship Specialty Start Date End Date Frederick Meade MD [address] [place] [address] PCP - General Family Medicine 11/29/17 documented as of this encounter
--- OUTSIDE RECORDS SUMMARY | 2023-11-16 06:28 | XMS_ITS | Encounter Summary ---
Author Organization [facility] Address [facility] [place] [address] Care Team Providers Care Electromedical Equipment Technician Name Role Phone Frederick Meade MD Primary Care Provider +1 -[phone] Encounter Details Date Type Department Care Team (Latest Contact Info) Description 10/10/2023 2:14 PM EDT - 10/10/2023 2:28 PM EDT Hospital Encounter XRay at [address] [place] [address] Micha Givens Jr., MD [facility] HEMATOLOGY [place] [address] Diffuse large B-cell lymphoma of lymph nodes [...] AM EDT Office Visit Hematology/Oncology at [address] [phone] Adrianne Ramon MD [facility] DR HEMATOLOGY [place] [address] Yael Merlos APRN [facility] DR HEMATOLOGY [place] [address] 11/21/2023 10:00 AM EDT Infusion Hematology Oncology at [address] [phone] 11/23/2023 11:00 AM EDT Office Visit Hematology [place] [phone] Reynold Proctor MD [facility] [place] [address] 11/23/2023 1:00 PM EDT Appointment Hematology [place] [phone] 11/23/2023 2:00 PM EDT Office Visit Hematology [place] [address] Micha Givens Jr., MD [facility] HEMATOLOGY [place] [address] 11/23/2023 3:30 PM EDT Hospital [place] [address] Micha Givens Jr., MD [facility] DR HEMATOLOGY [place] [address] documented as of this encounter Procedures Procedure Name Priority Date/Time Associated Diagnosis Comments XR CHEST PA AND LATERAL Routine 10/10/2023 2:21 PM EDT 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 Pre-op testing documented in this encounter Results * XR Chest PA & Lateral (Generic) (10/10/2023 2:21 PM EDT) WORKSTATION ID [id number] RAD Anatomical Region Laterality Modality Chest N/A [...] questions please contact the health customer care coordinator that requested your imaging first. [...] have questions please contactthe health customer care coordinator that requested your imaging first. Electronically signed by: Davey Tolentino MD, [facility]([phone]), at 10/11/2023 11:50 AM Micha Givens Jr., MD IMG DX ORDERABLES documented in this encounter Visit Diagnoses Diagnosis 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 Pre-op testing Preoperative examination, unspecified documented in this encounter Care Teams Electromedical Equipment Technician Relationship Specialty Start Date End Date Frederick Meade MD [address] [place] [address] PCP - General Family Medicine 11/29/17 documented as of this encounter
--- OUTSIDE RECORDS SUMMARY | 2023-11-16 06:28 | XMS_ITS | Encounter Summary ---
Author Organization [facility] Address [facility] [place] [address] Care Team Providers Care Staff Psychiatrist Name Role Phone Frederick Meade MD Primary Care Provider +1 -[phone] Reason for Visit * Reason Comments Medication Refill Encounter Details Date Type Department Care Team (Late st Contact Info) Description 10/15/2023 Refill Hematology/Oncology at [address] [address] Adrianne Ramon MD [facility] DR HEMATOLOGY [place] [address] Diffuse large B-cell lymphoma of lymph nodes [...] AM EDT Office Visit Hematology/Oncology at [address] [phone] Adrianne Ramon MD [facility] DR HEMATOLOGY [place] [address] Yael Merlos, PRECISION LAYOUT WORKER [facility] H[place]ATOLOGY [place] [address] 11/21/2023 10:00 AM EDT Infusion Hematology Oncology at [address] [phone] 11/23/2023 11:00 AM EDT Office Visit [place]ematology [place] [address] Reynold Proctor MD [facility] [place] [address] 11/23/2023 1:00 PM EDT Appointment Hematology [place] [address] 11/23/2023 2:00 PM EDT Office Visit Hematology [place] [address] Micha Givens Jr., MD [facility] DR HEMATOLOGY [place] [address] 11/23/2023 3:30 PM EDT Hospital [place] [address] Micha Givens Jr., MD [facility] DR HEMATOLOGY [place] [address] documented as of this encounter Visit Diagnoses Diagnosis Diffuse large B-cell lymphoma of lymph nodes of multiple regions documented in this encounter Care Teams Staff Psychiatrist Relationship Specialty Start Date End Date Frederick Meade MD [address] [place] [address] PCP - General Family Medicine 11/29/17 documented as of this encounter
--- OUTSIDE RECORDS SUMMARY | 2023-11-16 06:28 | XMS_ITS | Encounter Summary ---
Author Organization [facility] Address [facility] [place] [address] Care Team Providers Care Manager Market Name Role Phone Frederick Meade MD Primary Care Provider [phone] -[phone] Reason for Visit * Reason Comments Chemotherapy * Treatment/Therapy Plan Authorization (Routine) - Closed Specialty Diagnoses / Procedures Referred By Contac t Referred To Contact Hematology and Oncology Diagnoses Diffuse large B-cell lymphoma of lymph nodes of multiple regions Adrianne Ramon MD [facility] [address] [place] [address] Stj Hem Onc Infusion [address] [place] [phone] Referral ID Status Reason Start Date Expiration Date Visits Re quested Visits Authorized [id number] Closed 09/12/2023 09/11/2024 99 99 Encounter Details Date Type Department Care Team (Late st Contact Info) Description 09/26/2023 8:30 AM EDT Infusion Hematology Oncology at [address] [phone] Diffuse large B-cell lymphoma of [...] complaints. OBJECTIVE LAB DATA: completed today at [facility] 605 alerted COMBO WELDER who contacted patients PCP and plan has [...] AM EDT Office Visit Hematology/Oncology at [address] [phone] Adrianne Ramon MD [facility] [address] [place] [address] Yael Merlos APRN [facility] [place] [address] 11/21/2023 10:00 AM EDT Infusion Hematology Oncology at [address] [phone] 11/23/2023 11:00 AM EDT Office Visit Hematology [place] [address] Reynold Proctor MD [facility] [place] [address] 11/23/2023 1:00 PM EDT Appointment Hematology [place] [address] 11/23/2023 2:00 PM EDT Office Visit Hematology [place] [phone] Micha Givens Jr., MD [facility] [address] [place] [address] 11/23/2023 3:30 PM EDT Hospital [place] [phone] Micha Givens Jr., MD [facility] [address] [place] [address] documented as of this encounter Visit Diagnoses [...] documented in this encounter Care Teams Manager Market Relationship Specialty Start Date End Date Frederick Meade MD [address] [place] [address] PCP - General Family Medicine 11/29/17 documented as of this encounter
--- OUTSIDE RECORDS SUMMARY | 2023-11-16 06:28 | XMS_ITS | Encounter Summary ---
Author Organization [facility] [place] [address] Care Team Providers Care Communications Maintainer Name Role Phone Frederick Meade MD Primary Care Provider +1 -[phone] Encounter Details Date Type Department Care Team [...] AM EDT Office Visit Hematology/Oncology at [address] [phone] Adrianne Ramon MD [facility] DR [place] [address] Yael Merlos APRN [facility] DR [place] [address] 11/21/2023 10:00 AM EDT Infusion Hematology Oncology at [address] [phone] 11/23/2023 11:00 AM EDT Office Visit Hematology [place] [phone] Reynold Proctor MD [facility] [place] [address] 11/23/2023 1:00 PM EDT Appointment Hematology [place] [phone] 11/23/2023 2:00 PM EDT Office Visit Hematology [place] [phone] Micha Givens Jr., MD [facility] [place] [address] 11/23/2023 3:30 PM EDT Hospital [place] [address] Micha Givens Jr., MD [facility] DR [place] [address] documented as of this encounter Visit Diagnoses Not on filedocumented in this encounter Care Teams Communications Maintainer Relationship Specialty Start Date End Date Frederick Meade MD [address] [place] [address] [address] [place] [address] PCP - General Family Medicine 11/29/17 documented as of this encounter
--- OUTSIDE RECORDS SUMMARY | 2023-11-16 06:28 | XMS_ITS | Encounter Summary ---
Author Organization [facility] [place] [address] Care Team Providers Care Robot Operator Name Role Phone Frederick Meade MD Primary Care Provider [phone] -[phone] Encounter Details Date Type Department Care Team [...] 9:30 AM EDT Office Visit Hematology/Oncology at [address] [address] Adrianne Ramon MD [facility] DR HEMATOLOGY [place] [address] Yael Merlos APRN [facility] DR HEMATOLOGY [place] [address] 11/21/2023 10:00 AM EDT Infusion Hematology Oncology at [address] [address] 11/23/2023 11:00 AM EDT Office Visit Hematology [place] [phone] Reynold Proctor MD [facility] [place] [place] [address] 11/23/2023 1:00 PM EDT Appointment Hematology [place] [phone] 11/23/2023 2:00 PM EDT Office Visit Hematology [place] [phone] Micha Givens Jr., MD [facility] HEMATOLOGY [place] [address] 11/23/2023 3:30 PM EDT Hospital [place] [address] Micha Givens Jr., MD [facility] DR HEMATOLOGY [place] [address] documented as of this encounter Visit Diagnoses Not on filedocumented in this encounter Care Teams Robot Operator Relationship Specialty Start Date End Date Frederick Meade MD [address] [place] [address] [address] [place] [address] PCP - General Family Medicine 11/29/17 documented as of this encounter
--- OUTSIDE RECORDS SUMMARY | 2023-11-16 06:28 | XMS_ITS | Encounter Summary ---
Author Organization [facility] Address [facility] [place] [address] Care Team Providers Care Health Information Assistant Name Role Phone Frederick Meade MD Primary Care Provider +1 -[phone] Reason for Visit * Reason Onset Date Comments Follow-up 10/04/2023 Re constipation Encounter Details Date Type Department Care Team (Late st Contact Info) Description 10/04/2023 Telephone Hematology/Oncology at [address] [address] Colt Ardon, RN Follow-up (Re [...] AM EDT Office Visit Hematology/Oncology at [address] [address] Adrianne Ramon MD [facility] HEMATOLOGY [place] [address] Yael Merlos, FENCE MAKING MACHINE OPERATOR [facility] [place] [address] 11/21/2023 10:00 AM EDT Infusion Hematology Oncology at [address] [address] 11/23/2023 11:00 AM EDT Office Visit Hematology [place] [address] Reynold Proctor MD [facility] [place] [address] 11/23/2023 1:00 PM EDT Appointment Hematology and Oncology at [place] [address] 11/23/2023 2:00 PM EDT Office Visit Hematology and Oncology at [address] Micha Givens Jr., MD [facility] [place] [address] 11/23/2023 3:30 PM EDT Hospital [place] [address] Micha Givens Jr., MD [facility] [address] [place] [address] documented as of this encounter Visit Diagnoses Not on filedocumented in this encounter Care Teams Health Information Assistant Relationship Specialty Start Date End Date Frederick Meade MD [address] [place] [address] [address] [place] [address] PCP - General Family Medicine 11/29/17 documented as of this encounter
--- OUTSIDE RECORDS SUMMARY | 2023-11-16 06:28 | XMS_ITS | Encounter Summary ---
Author Organization [facility] Address [place] [id number] Care Team Providers Care Field Representative Name Role Phone Frederick Meade MD Primary Care Provider +1 -[phone] Reason for Visit * Consultation (Routine) - Authorized Specialty Diagnoses / Procedures Referred By Contdamir t Referred To Contact Diagnoses 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 Pre-op testing Micha Givens Jr., MD [facility] DR HEMATOLOGY [place] [address] [facility] [place] [address] Referral ID Status Reason Start Date Expiration Date Visits Requested Visits Authorized [id number] Authorized Continuity of Care 09/21/2023 09/20/2024 1 1 Encounter Details Date Type Department Care Team (Late st Contact Info) Description 09/25/2023 10:00 AM EDT Telephone Hematology [place] [phone] Elva Sutherland RD [facility] [place] [address] Social History Tobacco Use Types Packs/Day Years [...] Sutherland, RD - 09/25/2023 9:01 AM EDT [facility] BMT Pretransplant NutritionTeaching Pt: Cheo Freire [...] cheeses including brie, camembert, feta, cheatham's -- Cook Islander style soft cheeses including queso francisco, and queso fresco -- Polish containing chili pepper or other uncooked vegetables [...] use well water include filtration, distillation, boiling --https://www.cdc.gov/healthywater/drinking/nsyt-awrlp-rfhkwxsep/household_water _treatment.html --ht tps://www.cdc.gov/healthywater/pdf/drinking/household_water_treatment.pdf --https://www.cdc.gov/healthywater/drinking/jeqdtofc-lstmw-dhs.html#how_bwa -Well water must be boiled for 1 [...] future lab draw. Educational material provided: [facility]'s Food Safety Guidelines for the Patient with [...] AM EDT Office Visit Hematology/Oncology at [address] [address] Adrianne Ramon MD [facility] HEMATOLOGY [place] [address] Yael Merlos APRN [facility] HEMATOLOGY [place] [address] 11/21/2023 10:00 AM EDT Infusion Hematology Oncology at [address] [address] 11/23/2023 11:00 AM EDT Office Visit Hematology and Oncology at [place] [phone] Reynold Proctor MD [facility] [place] [address] 11/23/2023 1:00 PM EDT Appointment Hematology and Oncology at [place] [phone] 11/23/2023 2:00 PM EDT Office Visit Hematology and Oncology at [place] [phone] Micha Givens Jr., MD [facility] HEMATOLOGY [place] [address] 11/23/2023 3:30 PM EDT Hospital Encounter MRI at [place] [phone] Micha Givens Jr., MD [facility] HEMATOLOGY [place] [address] documented as of this encounter Visit Diagnoses Not on filedocumented in this encounter Care Teams Field Representative Relationship Specialty Start Date End Date Frederick Meade MD [address] [place] [address] PCP - General Family Medicine 11/29/17 documented as of this encounter
--- OUTSIDE RECORDS SUMMARY | 2023-11-16 06:28 | XMS_ITS | Encounter Summary ---
Author Organization [facility] Address [facility] [place] [address] Care Team Providers Care Vanstone Machine Operator Name Role Phone Frederick Meade MD Primary Care Provider +1 -[phone] Reason for Visit * Reason Comments Chemotherapy * Treatment/Therapy Plan Authorization (Routine) - Closed Specialty Diagnoses / Procedures Referred By Contac t Referred To Contact Hematology and Oncology Diagnoses Diffuse large B-cell lymphoma of lymph nodes of multiple regions Adrianne Ramon MD [facility] DR [place] [address] Stj Hem Onc Infusion [address] [place] [phone] Referral ID Status Reason Start Date Expiration Date Visits Re quested Visits Authorized [id number] Closed 09/12/2023 09/11/2024 99 99 Encounter Details Date Type Department Care Team (Late st Contact Info) Description 10/03/2023 10:30 AM EDT Infusion Hematology Oncology at [address] [phone] Diffuse large B-cell lymphoma of [...] complaints. OBJECTIVE LAB DATA: completed today at [facility] adequate for treatment Pre administration: Chemotherapy [...] AM EDT Office Visit Hematology/Oncology at [address] [address] Adrianne Ramon MD [facility] [place] [address] Yael Merlos APRN [facility] [place] [address] 11/21/2023 10:00 AM EDT Infusion Hematology Oncology at [address] [address] 11/23/2023 11:00 AM EDT Office Visit Hematology and Oncology at [place] [phone] Reynold Proctor MD [facility] [place] [address] 11/23/2023 1:00 PM EDT Appointment Hematology and Oncology at [place] [phone] 11/23/2023 2:00 PM EDT Office Visit Hematology and Oncology at [place] [phone] Micha Givens Jr., MD [facility] [place] [address] 11/23/2023 3:30 PM EDT Hospital Encounter MRI at [place] [phone] Micha Givens Jr., MD [facility] [place] [address] documented as of this encounter Visit Diagnoses [...] mL/hr documented in this encounter Care Teams Vanstone Machine Operator Relationship Specialty Start Date End Date Frederick Meade MD [address] [place] [address] PCP - General Family Medicine 11/29/17 documented as of this encounter
--- OUTSIDE RECORDS SUMMARY | 2023-11-16 06:28 | XMS_ITS | Encounter Summary ---
Author Organization [facility] [place] [address] Care Team Providers Care Peanut Shaker Name Role Phone Frederick Meade MD Primary Care Provider +1 -[phone] Reason for Visit * Reason Onset Date Comments Constipation 09/28/2023 Encounter Details Date Type Department Care Team (Late st Contact Info) Description 09/28/2023 Telephone Hematology/Oncology at [address] [address] Colt Ardon RN Constipation Social [...] AM EDT Office Visit Hematology/Oncology at [address] [address] Adrianne Ramon MD [facility] [address] [place] [address] Yael Merlos APRN [facility] [place] [address] 11/21/2023 10:00 AM EDT Infusion Hematology Oncology at [address] [phone] 11/23/2023 11:00 AM EDT Office Visit Hematology and Oncology at [address] Reynold Proctor MD [facility] [place] [address] 11/23/2023 1:00 PM EDT Appointment Hematology and Oncology at [place] [address] 11/23/2023 2:00 PM EDT Office Visit Hematology and Oncology at [address] Micha Givens Jr., MD [facility] [place] [address] 11/23/2023 3:30 PM EDT [place] [address] Micha Givens Jr., MD [facility] [place] [address] documented as of this encounter Visit Diagnoses Not on filedocumented in this encounter Care Teams Peanut Shaker Relationship Specialty Start Date End Date Frederick Meade MD [address] [facility] [address] [place] [address] PCP - General Family Medicine 11/29/17 documented as of this encounter
--- OUTSIDE RECORDS SUMMARY | 2023-11-16 06:28 | XMS_ITS | Encounter Summary ---
[place] [address] Care Team Providers Care Accounts Payable Analyst Name Role Phone Frederick Meade MD Primary Care Provider +1 -[phone] Encounter Details Date Type Department Care Team (Latest Contact Info) Description 10/10/2023 2:29 PM EDT - 10/10/2023 2:47 PM EDT Hospital Encounter [place] [phone] Diffuse large B-cell lymphoma of lymph nodes [...] TEST DAILY 4 03/11/2018 ONETOUCH ULTRASOFT LANCETS [facility] USE TO TEST DAILY 2 06/07/2018 colchicine [...] AM EDT Office Visit Hematology/Oncology at [address] [address] Adrianne Ramon MD [facility] HEMATOLOGY [place] [address] Yael Merlos APRN [facility] HEMATOLOGY [place] [address] 11/21/2023 10:00 AM EDT Infusion Hematology Oncology at [address] [address] 11/23/2023 11:00 AM EDT Office Visit Hematology and Oncology at [place] [phone] Reynold Proctor MD [facility] [place] [address] 11/23/2023 1:00 PM EDT Appointment Hematology [place] [address] 11/23/2023 2:00 PM EDT Office Visit Hematology and Oncology at [place] [phone] Micha Givens Jr., MD [facility] HEMATOLOGY [place] [address] 11/23/2023 3:30 PM EDT Hospital Encounter MRI at [place] [phone] Micha Givens Jr., MD [facility] HEMATOLOGY [place] [address] documented as of this encounter Procedures Procedure [...] (Bezet) 390 ms MUSE SYSTEM Calculated P [place] 67 degrees MUSE SYSTEM Calculated R [place] 32 degrees MUSE SYSTEM INTERPRETATION Sinus bradycardia Nonspecific ST abnormality Abnormal ECG No previous ECGs available Confirmed by MD Valderrama David ([id number]) on 10/14/2023 10:09:54 PM MUSE SYSTEM 10/10/2023 2:40 PM EDT 10/14/2023 10:09 PM EDT Micha Givens Jr., MD ECG ORDERABLES MUSE SYSTEM documented in this encounter Visit Diagnoses Diagnosis 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 Pre-op testing Preoperative examination, unspecified documented in this encounter Care Teams Accounts Payable Analyst Relationship Specialty Start Date End Date Frederick Meade MD [address] [facility] [address] [facility] [address] [place] [address] PCP - General Family Medicine 11/29/17 documented as of this encounter
--- OUTSIDE RECORDS SUMMARY | 2023-11-16 06:28 | XMS_ITS | Encounter Summary ---
Author Organization Formerly [facility] Address [facility] [place] [address] Care Team Providers Care Motor Adjuster Name Role Phone Frederick Meade MD Primary Care Provider +1 [phone] Reason for Visit * Reason Onset Date Comments Hyperglycemia 09/26/2023 Encounter Details Date Type Department Care Team (Late st Contact Info) Description 09/26/2023 Notes Only Hematology [place] [address] Yael Merlos APRN [facility] [place] [address] Hyperglycemia Social History Tobacco Use Types Packs/Day [...] this encounter Progress Notes * Yael Merlos, POWDER WORKER TNT - 09/26/2023 11:21 AM EDT Cheo returns to clinic today for continued treatment with Revlimid and Rituxan. Today is day 8 ofcycle #1. He is scheduled to receive a dose of Rituxan today. [facility] a serum glucose of [...] in clinic. I have asked the clinical integrated logistics support manager to stop by and review dietary recommendations. Yael Merlos, MSN, [employer] Nurse practitioner Section of Hematology documented in this encounter Plan of Treatment Upcoming Encounters Date Type Department Care Team (Late st Contact Info) Description 11/21/2023 9:30 AM EDT Office Visit Hematology/Oncology at [address] [phone] Adrianne Ramon MD [facility] [place] [address] Yael Merlos APRN [facility] [place] [address] 11/21/2023 10:00 AM EDT Infusion Hematology Oncology at [address] [address] 11/23/2023 11:00 AM EDT Office Visit Hematology [place] [address] Reynold Proctor MD [facility] [place] [address] 11/23/2023 1:00 PM EDT Appointment Hematology [place] [address] 11/23/2023 2:00 PM EDT Office Visit Hematology [place] [address] Micha Givens Jr., MD [facility] [place] [address] 11/23/2023 3:30 PM EDT Hospital [place] [address] Micha Givens Jr., MD [facility] [place] [address] documented as of this encounter Visit Diagnoses Not on filedocumented in this encounter Care Teams Motor Adjuster Relationship Specialty Start Date End Date Frederick Meade MD [address] [place] [address] PCP - General Family Medicine 11/29/17 documented as of this encounter
--- OUTSIDE RECORDS SUMMARY | 2023-11-16 06:28 | XMS_ITS | Encounter Summary ---
[place] [address] Care Team Providers Care Time Checker Name Role Phone Frederick Meade MD Primary Care Provider +1 [phone] Encounter Details Date Type Department Care Team (Latest Contact Info) Description 10/10/2023 2:48 PM EDT - 10/10/2023 11:59 PM EDT Hospital Encounter [place] [phone] Diffuse large B-cell lymphoma of lymph nodes [...] large B-cell lymphoma 21 capsule 10/10/2023 10/15/2023 potassium chloride ER (Klor-Con M) 20 mEq [...] AM EDT Office Visit Hematology/Oncology at [address] [address] Adrianne Ramon MD [facility] DR H[place] [address] Yael Merlos APRN [facility] DR [place] [address] 11/21/2023 10:00 AM EDT Infusion Hematology Oncology at [address] [phone] 11/23/2023 11:00 AM EDT Office Visit Hematology [place] [address] Reynold Proctor MD [facility] [place] [place] [address] 11/23/2023 1:00 PM EDT Appointment Hematology [place] [address] 11/23/2023 2:00 PM EDT Office Visit Hematology [place] [address] Micha Givens Jr., MD [facility] HEM[place]OLOG[place] [address] 11/23/2023 3:30 PM EDT Hospital [place] [address] Micha Givens Jr., MD [facility] DR [place] [address] documented as of this encounter Procedures Procedure [...] PFT FEV1/FVC Pre-BD Z-Score -2.14 COMPAS PFT FBI01-13 Actual Pre-BD 1.11 % COMPAS PFT FIM94-15 Predicted 2 % COMPAS PFT OZM60-26 Pre-BD % of Predicted 56 % COMPAS PFT WEZ58-49 Pre-BD Z-Score -1.17 COMPAS PFT DLCO Hb [...] unspecified documented in this encounter Care Teams Time Checker Relationship Specialty Start Date End Date Frederick Meade MD [address] [facility] 1 [place] [address] PCP - General Family Medicine 11/29/17 documented as of this encounter
--- OUTSIDE RECORDS SUMMARY | 2023-11-16 06:28 | XMS_ITS | Encounter Summary ---
Author Organization [facility] [place] [address] Care Team Providers Care Adjunct Professor Name Role Phone Frederick Meade MD Primary Care Provider [phone] [phone] Encounter Details Date Type Department Care Team [...] AM EDT Office Visit Hematology/Oncology at [address] [phone] Adrianne aRmon MD [facility] DR HEMATOLOGY [place] [address] Yael Merlos [address]N [facility] DR HEMATOLOGY [place] [address] 11/21/2023 10:00 AM EDT Infusion Hematology Oncology at [address] [phone] 11/23/2023 11:00 AM EDT Office Visit Hematology [place] [phone] Reynold Proctor MD [facility] [place] [address] 11/23/2023 1:00 PM EDT Appointment Hematology [place] [phone] 11/23/2023 2:00 PM EDT Office Visit Hematology [place] [address] Micha Givens Jr., MD [facility] HEMATOLOGY [place] [address] 11/23/2023 3:30 PM EDT Hospital [place] [address] Micha Givens Jr., MD [facility] DR HEMATOLOGY [place] [address] documented as of this encounter Visit Diagnoses Not on filedocumented in this encounter Care Teams Adjunct Professor Relationship Specialty Start Date End Date Frederick Meade MD [address] [place] [address] [address] [place] [address] PCP - General Family Medicine 11/29/17 documented as of this encounter
--- OUTSIDE RECORDS SUMMARY | 2023-11-16 06:28 | XMS_ITS | Encounter Summary ---
Author Organization [facility] Address [facility] [place] [address] Care Team Providers Care Forming Fixer Name Role Phone Frederick Meade MD Primary Care Provider +1 -[phone] Reason for Visit * Reason Comments Chemotherapy [id number] * Treatment/Therapy Plan Authorization (Routine) - Closed Specialty Diagnoses / Procedures Referred By Paul t Referred To Contact Hematology and Oncology Diagnoses Diffuse large B-cell lymphoma of lymph nodes of multiple regions Adrianne Ramon MD [facility] DR HEMATOLOGY [place] [address] Stj Hem Onc Infusion [address] [place] [address] Referral ID Status Reason Start Date Expiration Date Visits Re quested Visits Authorized [id number] Closed 09/12/2023 09/11/2024 99 99 Encounter Details Date Type Department Care Team (Late st Contact Info) Description 10/11/2023 8:30 AM EDT Infusion Hematology Oncology at [address] [address] Diffuse large B-cell lymphoma of [...] complaints. OBJECTIVE LAB DATA: completed today at [facility] adequate for treatment IV ACCESS: PIV [...] Office Visit Hematology/Oncology at [address] [address] Adrianne Ramon MD [facility] DR HEMATOLOGY [place] [address] Yael Merlos APRN [facility] DR HEMATOLOGY [place] [address] 11/21/2023 10:00 AM EDT Infusion Hematology Oncology at [address] [address] 11/23/2023 11:00 AM EDT Office Visit Hematology [place] [address] Reynold Proctor MD [facility] [place] [address] 11/23/2023 1:00 PM EDT Appointment Hematology [place] [address] 11/23/2023 2:00 PM EDT Office Visit Hematology [place] [address] Micha Givens Jr., MD [facility] HEMATOLOGY [place] [address] 11/23/2023 3:30 PM EDT Hospital [place] [address] Micha Givens Jr., MD [facility] HEMATOLOGY [place] [address] documented as of this encounter Visit Diagnoses [...] mL/hr documented in this encounter Care Teams Forming Fixer Relationship Specialty Start Date End Date Frederick Meade MD [address] [place] [address] PCP - General Family Medicine 11/29/17 documented as of this encounter
--- OUTSIDE RECORDS SUMMARY | 2023-11-16 06:28 | XMS_ITS | Encounter Summary ---
Author Organization [facility] Address [facility] [place] [address] Care Team Providers Care Cash Reconciliation Specialist Name Role Phone Frederick Meade MD Primary Care Provider [phone] [phone] Reason for Visit * Reason Comments Medication Refill Encounter Details Date Type Department Care Team (Late st Contact Info) Description 10/11/2023 Refill Hematology/Oncology at [address] [address] Adrianne Ramon MD [facility] DR HEMATOLOGY [place] [address] Diffuse large B-cell lymphoma of lymph nodes [...] AM EDT Office Visit Hematology/Oncology at [address] [phone] Adrianne Ramon MD [facility] DR HEMATOLOGY [place] [address] Yael Merlos, [employer] [facility] HEMATOLOGY [place] [address] 11/21/2023 10:00 AM EDT Infusion Hematology Oncology at [address] [phone] 11/23/2023 11:00 AM EDT Office Visit Hematology [place] [address] Reynold Proctor MD [facility] [place] [address] 11/23/2023 1:00 PM EDT Appointment Hematology [place] [address] 11/23/2023 2:00 PM EDT Office Visit Hematology [place] [address] Micha Givens Jr., MD [facility] DR HEMATOLOGY [place] [address] 11/23/2023 3:30 PM EDT Hospital [place] [address] Micha Givens Jr., MD [facility] DR HEMATOLOGY [place] [address] documented as of this encounter Visit Diagnoses Diagnosis Diffuse large 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
--- OUTSIDE RECORDS SUMMARY | 2023-11-16 06:28 | XMS_ITS | Encounter Summary ---
Author Organization [facility] Address [facility] [place] [address] Care Team Providers Care Cell Lead Name Role Phone Frederick Meade MD Primary Care Provider [phone] [phone] Encounter Details Date Type Department Care Team (Latest Contact Info) Description 09/26/2023 Unscheduled Encounter Hematology/Oncology at [address] [address] Nimisha Hale, RD [facility] DR HEMATOLOGY [place] [address] Diffuse large B-cell lymphoma of lymph nodes [...] AM EDT Office Visit Hematology/Oncology at [address] [address] Adrianne Ramon MD [facility] HEMATOLOGY [place] [address] Yael Merlos APRN [facility] HEMATOLOGY [place] [address] 11/21/2023 10:00 AM EDT Infusion Hematology Oncology at [address] [address] 11/23/2023 11:00 AM EDT Office Visit Hematology [place] [address] Reynold Proctor MD [facility] [place] [address] 11/23/2023 1:00 PM EDT Appointment Hematology [place] [address] 11/23/2023 2:00 PM EDT Office Visit Hematology [place] [address] Micha Givens Jr., MD [facility] DR HEMATOLOGY [place] [address] 11/23/2023 3:30 PM EDT Hospital [place] [address] Micha Givens Jr., MD [facility] DR HEMATOLOGY [place] [address] documented as of this encounter Visit Diagnoses Diagnosis Diffuse large B-cell lymphoma of lymph nodes of multiple regions documented in this encounter Care Teams Cell Lead Relationship Specialty Start Date End Date Frederick Meade MD [address] [facility] 1 [place] [address] PCP - General Family Medicine 11/29/17 documented as of this encounter
--- OUTSIDE RECORDS SUMMARY | 2023-11-16 06:28 | XMS_ITS | Encounter Summary ---
Author Organization [facility] Address [facility] [place] [address] Care Team Providers Care Motor Teacher Name Role Phone Frederick Meade MD Primary Care Provider +1 -[phone] Encounter Details Date Type Department Care Team (Late st Contact Info) Description 10/11/2023 Notes Only Hematology/Oncology at [address] [address] Shelley Cason, [facility] OFFICE OF CARE MANAGEMENT Social History Tobacco [...] AM EDT Office Visit Hematology/Oncology at [address] [address] Adrianne Ramon MD [facility] HEMATOLOGY [place] [address] Yael Merlos, KARLA [facility] [place] [address] 11/21/2023 10:00 AM EDT Infusion Hematology Oncology at [address] [address] 11/23/2023 11:00 AM EDT Office Visit Hematology [place] [address] Reynold Proctor MD [facility] [place] [address] 11/23/2023 1:00 PM EDT Appointment Hematology and Oncology at [place] [address] 11/23/2023 2:00 PM EDT Office Visit Hematology and Oncology at [address] Micha Givens Jr., MD [facility] DR [place] [address] 11/23/2023 3:30 PM EDT Hospital [place] [address] Micha Givens Jr., MD [facility] DR [place] [address] documented as of this encounter Visit Diagnoses Not on filedocumented in this encounter Care Teams Motor Teacher Relationship Specialty Start Date End Date Frederick Meade MD [address] [place] [address] [address] [place] [address] PCP - General Family Medicine 11/29/17 documented as of this encounter
--- OUTSIDE RECORDS SUMMARY | 2023-11-16 06:28 | XMS_ITS | Encounter Summary ---
[place] [address] Care Team Providers Care Detective Private Eye Name Role Phone Frederick Meade MD Primary Care Provider [phone] -[phone] Reason for Referral * Consultation (Routine) - Authorized Specialty Diagnoses / Procedures Referred By Paul bowen Referred To Contact Hematology and Oncology Diagnoses 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 Pre-op testing Micha Givens Jr., MD [facility] DR [place] [address] [facility] Hem Onc [address] [place] [address] Referral ID Status Reason Start Date Expiration Date Visits Requested Visits Authorized [id number] Authorized Consult, Test & Treat 10/12/2023 10/11/2024 1 1 * Diagnostic Test (Routine) - Authorized Specialty Diagnoses / Procedures Referred By Paul bowen Referred To Contact Radiology Diagnoses 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 Pre-op testing Procedures MRI Brain wwo Contrast (Generic) Micha Givens Jr., MD [facility] DR [place] [address] [facility] [place] [address] Referral ID Status Reason Start Date Expiration Date Visits Requested Visits Authorized [id number] Authorized Specialty Service Requested 10/12/2023 04/12/2025 1 1 Encounter Details Date Type Department Care Team (Late st Contact Info) Description 10/11/2023 Orders Only Hematology and Oncology at [facility] [place] [address] Micha Givens Jr., MD [facility] DR [place] [address] Diffuse large B-cell lymphoma of lymph nodes [...] AM EDT Office Visit Hematology/Oncology at [address] [address] Adrianne Ramon MD [facility] DR [place] [address] Yael Merlos APRN [facility] [place] [address] 11/21/2023 10:00 AM EDT Infusion Hematology Oncology at [address] [phone] 11/23/2023 11:00 AM EDT Office Visit Hematology [place] [address] Reynold Proctor MD [facility] [place] [address] 11/23/2023 1:00 PM EDT Appointment Hematology [place] [address] 11/23/2023 2:00 PM EDT Office Visit Hematology [place] [address] Micha Givens Jr., MD [facility] [place] [address] 11/23/2023 3:30 PM EDT Hospital [place] [address] Micha Givens Jr., MD [facility] DR [place] [address] Scheduled Orders Name Type Priority Associated Diagnoses [...] thyroid documented in this encounter Care Teams Detective Private Eye Relationship Specialty Start Date End Date Frederick Meade MD [address] [place] [address] PCP - General Family Medicine 11/29/17 documented as of this encounter
--- OUTSIDE RECORDS SUMMARY | 2023-11-16 06:29 | XMS_ITS | Encounter Summary ---
Author Organization [facility] Address [facility] [place] [address] Care Team Providers Care Dealer Account Manager Name Role Phone Frederick Meade MD Primary Care Provider [phone] -[phone] Reason for Visit * Reason Onset Date Comments Other 09/13/2023 Financial paperw ork Encounter Details Date Type Department Care Team (Late st Contact Info) Description 09/13/2023 Telephone Hematology/Oncology at [address] [address] Colt Ardon, RN Other (Financial [...] Completed BMS Access Support forms faxed to [phone], fax confirmed. Copy of application and supporting financial docs scanned into media for reference. documented in this encounter Plan of Treatment Upcoming Encounters Date Type Department Care Team (Late st Contact Info) Description 11/21/2023 9:30 AM EDT Office Visit Hematology/Oncology at [address] [address] Adrianne Ramon MD [facility] DR HEMATOLOGY [place] [address] Yael Merlos APRN [facility] HEMATOLOGY [place] [address] 11/21/2023 10:00 AM EDT Infusion Hematology Oncology at [address] [address] 11/23/2023 11:00 AM EDT Office Visit Hematology [place] [address] Reynold Proctor MD [facility] [place] [address] 11/23/2023 1:00 PM EDT Appointment Hematology and Oncology at [place] [phone] 11/23/2023 2:00 PM EDT Office Visit Hematology and Oncology at [place] [phone] Micha Givens Jr., MD [facility] HEMATOLOGY [place] [address] 11/23/2023 3:30 PM EDT Hospital [place] [address] Micha Givens Jr., MD [facility] DR HEMATOLOGY [place] [address] documented as of this encounter Visit Diagnoses Not on filedocumented in this encounter Care Teams Dealer Account Manager Relationship Specialty Start Date End Date Frederick Meade MD [address] [place] [address] PCP - General Family Medicine 11/29/17 documented as of this encounter
--- OUTSIDE RECORDS SUMMARY | 2023-11-16 06:29 | XMS_ITS | Encounter Summary ---
Author Organization [facility] Address [facility] [place] [address] Care Team Providers Care Coremaker Name Role Phone Frederick Meade MD Primary Care Provider [phone] -[phone] Reason for Visit * Reason Onset Date Comments Follow-up 09/19/[address] obrien thru [facility] Encounter Details Date Type Department Care Team (Late st Contact Info) Description 09/19/2023 Telephone Hematology/Oncology at [address] [address] Polly Orellana, OSCAR Follow-up (Possible [...] - 09/19/2023 11:05 AM EDT Spoke with [employer] pt assistance foundation. Pt at present received revlimid with a copay of 157$ after getting $4000 thru [employer]. He is getting drug from [facility]. When next script is sent in if pt still has high copay and there is no funding we can call [employer] at [phone] fax [phone] and request assistance for pt again and they will resubmit the paper work they have on him for free drug. documented in this encounter Plan of Treatment Upcoming Encounters Date Type Department Care Team (Late st Contact Info) Description 11/21/2023 9:30 AM EDT Office Visit Hematology/Oncology at [address] [address] Adrianne Ramon MD [facility] DR [place] [address] Yael Merlos APRN [facility] [place] [address] 11/21/2023 10:00 AM EDT Infusion Hematology Oncology at [address] [address] 11/23/2023 11:00 AM EDT Office Visit Hematology [place] [address] Reynold Proctor MD [facility] [place] [address] 11/23/2023 1:00 PM EDT Appointment Hematology [place] [address] 11/23/2023 2:00 PM EDT Office Visit Hematology [place] [address] Micha Givens Jr., MD [facility] DR [place] [address] 11/23/2023 3:30 PM EDT Hospital [place] [address] Micha Givens Jr., MD [facility] DR [place] [address] documented as of this encounter Visit Diagnoses Not on filedocumented in this encounter Care Teams Coremaker Relationship Specialty Start Date End Date Frederick Meade MD [address] [place] [address] [address] [place] [address] PCP - General Family Medicine 11/29/17 documented as of this encounter
--- OUTSIDE RECORDS SUMMARY | 2023-11-16 06:29 | XMS_ITS | Encounter Summary ---
Author Organization [facility] [place] [address] Care Team Providers Care Air Conditioning Coil Assembler Name Role Phone Frederick Meade MD Primary Care Provider [phone] [phone] Encounter Details Date Type Department Care Team [...] AM EDT Office Visit Hematology/Oncology at [address] [address] Adrianne Ramon MD [facility] DR H[place] [address] Yael Merlos APRN [facility] DR HEMAT[place] [address] 11/21/2023 10:00 AM EDT Infusion Hematology Oncology at [address] [address] 11/23/2023 11:00 AM EDT Office Visit [place] [phone] Reynold Proctor MD [facility] [place] [address] 11/23/2023 1:00 PM EDT Appointment Hematology [place] [phone] 11/23/2023 2:00 PM EDT Office Visit [place]ology [place] [phone] Micha Givens Jr., MD [facility] HEMATOLOGY [place] [address] 11/23/2023 3:30 PM EDT [place] [address] Micha Givens Jr., MD [facility] DR HEMATOLOG[place] [address] documented as of this encounter Visit Diagnoses Not on filedocumented in this encounter Care Teams Air Conditioning Coil Assembler Relationship Specialty Start Date End Date Frederick Meade MD [address] [place] [address] [address] [place] [address] PCP - General Family Medicine 11/29/17 documented as of this encounter
--- OUTSIDE RECORDS SUMMARY | 2023-11-16 06:29 | XMS_ITS | Encounter Summary ---
Author Organization [facility] Address [facility] [place] [address] Care Team Providers Care Environmental Studies Professor Name Role Phone Frederick Meade MD Primary Care Provider [phone] [phone] Encounter Details Date Type Department Care Team (Late st Contact Info) Description 09/19/2023 Notes Only Hematology/Oncology at [address] [address] Shelley Cason, [facility] OFFICE OF CARE MANAGEMENT Social History Tobacco [...] are managing otherwise. Reminded them of the [facility] if they needs to apply for [...] did not identify any specific needs today. [facility] will follow for support and resources. Brief assessment Supportive Counseling Financial resources documented in this encounter Plan of Treatment Upcoming Encounters Date Type Department Care Team (Late st Contact Info) Description 11/21/2023 9:30 AM EDT Office Visit Hematology/Oncology at [address] [phone] Adrianne Ramon MD [facility] HEMATOLOGY [place] [address] Yael Merlos APRN [facility] HEMATOLOGY [place] [address] 11/21/2023 10:00 AM EDT Infusion Hematology Oncology at [address] [phone] 11/23/2023 11:00 AM EDT Office Visit Hematology and Oncology at [place] [phone] Reynold Proctor MD [facility] [place] [address] 11/23/2023 1:00 PM EDT Appointment Hematology and Oncology at [address] 11/23/2023 2:00 PM EDT Office Visit Hematology and Oncology at [place] [phone] Micha Givens Jr., MD [facility] [place] [address] 11/23/2023 3:30 PM EDT Hospital [place] [address] Micha Givens Jr., MD [facility] HEMATOLOGY [place] [address] documented as of this encounter Visit Diagnoses Not on filedocumented in this encounter Care Teams Environmental Studies Professor Relationship Specialty Start Date End Date Frederick Meade MD [address] [place] [address] PCP - General Family Medicine 11/29/17 documented as of this encounter
--- OUTSIDE RECORDS SUMMARY | 2023-11-16 06:29 | XMS_ITS | Encounter Summary ---
Author Organization [place] [address] Care Team Providers Care Slide Fastener Repairer Name Role Phone Frederick Meade MD Primary Care Provider [phone] [phone] Encounter Details Date Type Department Care Team (Late st Contact Info) Description 09/19/2023 Orders Only Hematology [place] [address] Yael Merlos, [facility] DR HEMATOLOGY [place] [address] Diffuse large B-cell lymphoma of lymph nodes [...] AM EDT Office Visit Hematology/Oncology at [address] [address] Adrianne Ramon MD [facility] DR HEMATOLOGY [place] [address] Yael Merlos, [facility] DR HEMATOLOGY [place] [address] 11/21/2023 10:00 AM EDT Infusion Hematology Oncology at [address] [address] 11/23/2023 11:00 AM EDT Office Visit Hematology [place] [address] Reynold Proctor MD [facility] [place] [address] 11/23/2023 1:00 PM EDT Appointment Hematology [place] [address] 11/23/2023 2:00 PM EDT Office Visit Hematology [place] [address] Micha Givens Jr., MD [facility] DR HEMATOLOGY [place] [address] 11/23/2023 3:30 PM EDT Hospital [place] [address] Micha Givens Jr., MD 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
--- OUTSIDE RECORDS SUMMARY | 2023-11-16 06:29 | XMS_ITS | Encounter Summary ---
Author Organization [facility] [place] [address] Care Team Providers Care Speech/Language Therapist Name Role Phone Frederick Meade MD Primary Care Provider [phone] [phone] Reason for Visit * Reason Comments Advice Only * Consultation (Routine) - Closed Specialty Diagnoses / Procedures Referred By Contac t Referred To Contact Hematology and Oncology Diagnoses Diffuse large B-cell lymphoma of lymph nodes of multiple regions Adrianne Ramon MD [facility] [address] [place] [address] [facility] Hem Onc [address] [place] [address] Referral ID Status Reason Start Date Expiration Date V isits Requested Visits Authorized [id number] Closed Specialty Service Requested 09/12/2023 09/11/2024 1 1 Encounter Details Date Type Department Care Team (Late st Contact Info) Description 09/21/2023 9:30 AM EDT Office Visit Hematology [place] [address] Micha Givens Jr., MD [facility] [address] [place] [address] Diffuse large B-cell lymphoma of lymph nodes [...] Diffuse Large B-[facility] Ramon for Chimeric Antigen Receptor (CAR) T-cell Therapy consideration. The patient comes to clinic with his , Claritza, and daughter, Sarath. HISTORY OF PRESENT ILLNESS: Th patient is a 73 year old male initially referred to Hematology in Sep 2022 by [facility] ENT after presentation with a 4 week [...] prednisone started, with noted response. Pathology from [facility] was c/w Large B-cell lymphoma (Double [...] and needle of cervical LN. 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 Not a . ETOH: Occasional (few beers per week) Smoking: Quit 1985. Approximately 36-twsf-rcxa history HIPPA Contact Permission: Claritza and Cheo. [...] History Not Found T&S only valid at [facility] Hosp ABORH Recheck Order Order Placed ABORH [...] See comment. Electronically signed by: Dana OCASIO, [facility] Verified: 09/10/2023 15:05 Hematopathologist Performed at: -[facility] Dept. of Pathology, [place] [address] Scroll Shear Operator: Katherine Lopez MD, FCAP, CLIA Certificate: [id number] DISCUSSION The T-lymphocytes , B- lymphocytes and [...] and BCL-2 protein (Double Expressor.) Flow cytometry ([id number]) supports this interpretation. FISH from [place] No MYC rearrangement and no fusion of MYC and IGH was observed, CD3 (SP7, [employer]) Background T-cells CD20 (L26, [place]) diffusely positive in Neoplastic B-cells PAX-5 (1EW, [employer]) diffusely positive in Neoplastic B-cells CD10 (SP67, [place]) Negative BCL-6 (G/191E/A8, [place]) Positive MUM-1 (MUM1p, [employer]) Positive Myc (Y69, [employer]) Positive BCL-2 Oncoprotein (124, [place]) Positive Ki67 (MIB-1) (K2, [employer]) Greater than 95% of cells in cycle Cyclin D1(SP4-R, [place]) Negative SAPPHIRE JOSE (QAK1250-D, [employer]) Negative. DIAGNOSTICS: 01/25/23 ECHO after C#5 [...] AM EDT Office Visit Hematology/Oncology at [address] [address] Adrianne Ramon MD [facility] DR HEMATOLOGY [place] [address] Yael Merlos, [employer] [facility] [place] [address] 11/21/2023 10:00 AM EDT Infusion Hematology Oncology at [address] [address] 11/23/2023 11:00 AM EDT Office Visit Hematology and Oncology at [place] [phone] Reynold Proctor MD [facility] [place] [address] 11/23/2023 1:00 PM EDT Appointment Hematology and Oncology at [place] [phone] 11/23/2023 2:00 PM EDT Office Visit Hematology and Oncology at [place] [phone] Micha Givens Jr., MD [facility] HEMATOLOGY [place] [address] 11/23/2023 3:30 PM EDT Hospital Encounter MRI at [place] [phone] Micha Givens Jr., MD [facility] [place] [address] Scheduled Referrals Name Type Priority Associated Diagnoses [...] type documented in this encounter Care Teams Speech/Language Therapist Relationship Specialty Start Date End Date Frederick Meade MD [address] [facility] [place] [address] PCP - General Family Medicine 11/29/17 documented as of this encounter
--- OUTSIDE RECORDS SUMMARY | 2023-11-16 06:29 | XMS_ITS | Encounter Summary ---
Author Organization [facility] [place] [address] Care Team Providers Care Instructional Support Services Director Name Role Phone Frederick Meade MD Primary Care Provider [phone] Encounter Details Date Type Department Care Team [...] AM EDT Office Visit Hematology/Oncology at [address] [address] Adrianne Ramon MD [facility] DR HEMATOLOGY [place] [address] Yael Merlos APRN [facility] DR HEMATOLOGY [place] [address] 11/21/2023 10:00 AM EDT Infusion Hematology Oncology at [address] [address] 11/23/2023 11:00 AM EDT Office Visit Hematology [place] [phone] Reynold Proctor MD [facility] [place] [address] 11/23/2023 1:00 PM EDT Appointment Hematology [place] [phone] 11/23/2023 2:00 PM EDT Office Visit Hematology [place] [phone] Micha Givens Jr., MD [facility] HEMATOLOGY [place] [address] 11/23/2023 3:30 PM EDT Hospital [place] [address] Micha Givens Jr., MD [facility] DR HEMATOLOGY [place] [address] documented as of this encounter Visit Diagnoses Not on filedocumented in this encounter Care Teams Instructional Support Services Director Relationship Specialty Start Date End Date Frederick Meade MD [address] [place] [address] [address] [place] [address] PCP - General Family Medicine 11/29/17 documented as of this encounter
--- OUTSIDE RECORDS SUMMARY | 2023-11-16 06:29 | XMS_ITS | Encounter Summary ---
Author Organization [facility] [place] [address] Care Team Providers Care News Commentator Name Role Phone Frederick Meade MD Primary Care Provider [phone] [phone] Encounter Details Date Type Department Care Team [...] AM EDT Office Visit Hematology/Oncology at [address] [address] Adrianne Ramon MD [facility] DR HEMATOLOGY [place] [address] Yael Merlos APRN [facility] DR [place]EM[place] [address] 11/21/2023 10:00 AM EDT Infusion Hematology Oncology at [address] [address] 11/23/2023 11:00 AM EDT Office Visit Hematology [place] [address] Reynold Proctor MD [facility] [place] [place] [address] 11/23/2023 1:00 PM EDT Appointment Hematology [place] [phone] 11/23/2023 2:00 PM EDT Office Visit Hematology [place] [address] Micha Givens Jr., MD [facility] [place] [address] 11/23/2023 3:30 PM EDT Hospital [place] [address] Micha Givens Jr., MD [facility] DR [place]EMAT[place] [address] documented as of this encounter Visit Diagnoses Not on filedocumented in this encounter Care Teams News Commentator Relationship Specialty Start Date End Date Frederick Meade MD [address] [place] [address] [address] [place] [address] PCP - General Family Medicine 11/29/17 documented as of this encounter
--- OUTSIDE RECORDS SUMMARY | 2023-11-16 06:29 | XMS_ITS | Encounter Summary ---
[place] [address] Care Team Providers Care Eradicator Name Role Phone Frederick Meade MD Primary Care Provider [phone] Reason for Referral * Diagnostic Test (Routine) - Closed Specialty Diagnoses / Procedures Referred By Contac t Referred To Contact Radiology Diagnoses Diffuse large B-cell lymphoma of lymph nodes of multiple regions Skin nodule Procedures NM PET CT Standard Plus Extremities and Head Adrianne Ramon MD [facility] DR HEMATOLOGY [place] [address] [place] [address] Referral ID Status Reason Start Date Expiration Date V isits Requested Visits Authorized [id number] Closed Specialty Service Requested 08/22/2023 02/21/2025 1 1 Reason for Visit * Diagnostic Test (Routine) - Closed Specialty Diagnoses / Procedures Referred By Contac t Referred To Contact Radiology Diagnoses Diffuse large B-cell lymphoma of lymph nodes of multiple regions Skin nodule Procedures NM PET CT Standard Plus Extremities and Head Adrianne Ramon MD [facility] DR HEMATOLOGY [place] [address] [place] [address] Referral ID Status Reason Start Date Expiration Date V isits Requested Visits Authorized [id number] Closed Specialty Service Requested 08/22/2023 02/21/2025 1 1 Encounter Details Date Type Department Care Team (Jaciel teixeira Contact Info) Description 09/06/2023 12:59 PM EDT Hospital Encounter [place] [address] Adrianne Ramon MD [facility] DR HEMATOLOGY [place] [address] Diffuse large B-cell lymphoma of lymph nodes [...] Chewable Take 325 mg by mouth daily. lactobacillus (BACID) Capsule Take 1 tablet by mouth daily. 10/17/2023 documented as of this encounter Plan of Treatment Upcoming Encounters Date Type Department Care Team (Late st Contact Info) Description 11/21/2023 9:30 AM EDT Office Visit Hematology/Oncology at [address] [phone] Adrianne Ramon MD [facility] HEMATOLOGY [place] [address] Yael Merlos APRN [facility] HEMATOLOGY [place] [address] 11/21/2023 10:00 AM EDT Infusion Hematology Oncology at [address] [address] 11/23/2023 11:00 AM EDT Office Visit Hematology [place] [address] Reynold Proctor MD [facility] [place] [address] 11/23/2023 1:00 PM EDT Appointment Hematology [place] [phone] 11/23/2023 2:00 PM EDT Office Visit Hematology [place] [phone] Micha Givens Jr., MD [facility] DR HEMATOLOGY [place] [address] 11/23/2023 3:30 PM EDT Hospital [place] [phone] Micha Givens Jr., MD [facility] DR HEMATOLOGY [place] [address] documented as of this encounter Procedures Procedure Name Priority Date/Time Associated Diagnosis Comments NM PET CT STANDARD PLUS EXTREMITIES AND HEAD Routine 09/06/2023 2:45 PM EDT Diffuse large B-cell lymphoma of lymph nodes of multiple regions Skin nodule documented in this encounter Results * NM PET CT Standard Plus Extremities and Head (09/06/2023 2:45 PM EDT) WORKSTATION ID [id number] [facility] Anatomical Region Laterality Modality Positron Emissio n [...] have questions please contact the health animal caretaker supervisor that requested your imaging first. ? Narrative [...] unspecified. TECHNIQUE: Procedure: Following IV injection of 55-gcndpv-3-deoxyglucose (FDG) a standard uptake of approximately 60 [...] unspecified. TECHNIQUE: Procedure: Following IV injection of 38-kpmpxb-1-deoxyglucose(FDG) a standard uptake of approximately 60 minutes, [...] who have questions please contactthe health animal caretaker supervisor that requested your imaging first. Adrianne Ramon MD IMG PET ORDERABL documented in this encounter Visit Diagnoses Diagnosis [...] Arm documented in this encounter Care Teams Eradicator Relationship Specialty Start Date End Date Frederick Meade MD [address] [place] [address] PCP - General Family Medicine 11/29/17 documented as of this encounter
--- OUTSIDE RECORDS SUMMARY | 2023-11-16 06:29 | XMS_ITS | Encounter Summary ---
Author Organization [facility] [place] [address] Care Team Providers Care Factorer Name Role Phone Frederick Meade MD Primary Care Provider [phone] Reason for Visit * Diagnostic Test (Routine) - Closed Specialty Diagnoses / Procedures Referred By Contac t Referred To Contact Radiology Diagnoses Diffuse large B-cell lymphoma of lymph nodes of multiple regions Skin nodule Procedures NM PET CT Standard Plus Extremities and Head Adrianne Ramon MD [facility] DR HEMATOLOGY [place] [address] [place] [address] Referral ID Status Reason Start Date Expiration Date V isits Requested Visits Authorized [id number] Closed Specialty Service Requested 08/22/2023 02/21/2025 1 1 Encounter Details Date Type Department Care Team (Late st Contact Info) Description 09/06/2023 1:00 PM EDT - 09/06/2023 11:59 PM EDT Hospital Encounter [place] [address] Adrianne Ramon MD [facility] DR HEMATOLOGY [place] [address] Discharge Disposition: Home Social History [...] tablet Take 5 mg by mouth daily. [employer] ULTRA BLUE TEST STRIP Strip USE TO [...] AM EDT Office Visit Hematology/Oncology at [address] [address] Adrianne Ramon MD [facility] DR HEMATOLOGY [place] [address] Yael Merlos APRN [facility] DR HEMATOLOGY [place] [address] 11/21/2023 10:00 AM EDT Infusion Hematology Oncology at [address] [phone] 11/23/2023 11:00 AM EDT Office Visit Hematology [place] [address] Reynold Proctor MD [facility] [place] [place] [address] 11/23/2023 1:00 PM EDT Appointment Hematology [place] [phone] 11/23/2023 2:00 PM EDT Office Visit Hematology [place] [address] Micha Givens Jr., MD [facility] DR HEMATOLOGY [place] [address] 11/23/2023 3:30 PM EDT Hospital [place] [address] Micha Givens Jr., MD [facility] DR HEMATOLOGY [place] [address] documented as of this encounter Procedures Procedure [...] Glucose, POC 98 65 - 199 mg/dL [facility] Comment: Supplemental ranges: <140 mg/dL before meals <180 mg/dL all other times of the day Blood 09/06/2023 1:06 PM EDT 09/06/2023 1:06 PM EDT Adrianne Ramon MD POINT OF CARE TE ST ORDERABLES [facility] [place] [address] * POCT Glucose (09/06/2023 10:41 AM EDT) Glucose, POC 142 65 - 199 mg/dL [facility] Comment: Supplemental ranges: <140 mg/dL before meals <180 mg/dL all other times of the day Blood 09/06/2023 10:4 1 AM EDT 09/06/2023 10:41 AM EDT Adrianne Ramon MD POINT [place] [address] documented in this encounter Visit Diagnoses Not on filedocumented in this encounter Care Teams Factorer Relationship Specialty Start Date End Date Frederick Meade MD [address] [place] [address] [address] [place] [address] PCP - General Family Medicine 11/29/17 documented as of this encounter
--- OUTSIDE RECORDS SUMMARY | 2023-11-16 06:29 | XMS_ITS | Encounter Summary ---
Author Organization [facility] Address [facility] [place] [address] Care Team Providers Care Sales Team Manager Name Role Phone Frederick Meade MD Primary Care Provider [phone] Reason for Visit * Reason Onset Date Comments Other 09/19/2023 Prednisone taper Encounter Details Date Type Department Care Team (Late st Contact Info) Description 09/19/2023 Telephone Hematology/Oncology at [address] [address] Polly Orellana RN Other (Prednisone [...] encounter Miscellaneous Notes * Telephone Encounter - Polyl Orellana RN - 09/19/2023 4:44 PM EDT [...] AM EDT Office Visit Hematology/Oncology at [address] [address] Adrianne Ramon MD [facility] DR HEMATOLOGY [place] [address] Yael Merlos, KARLA [facility] [place] [address] 11/21/2023 10:00 AM EDT Infusion Hematology Oncology at [address] [address] 11/23/2023 11:00 AM EDT Office Visit Hematology and Oncology at [place] [address] Reynold Proctor MD [facility] [place] [address] 11/23/2023 1:00 PM EDT Appointment Hematology and Oncology at [place] [address] 11/23/2023 2:00 PM EDT Office Visit Hematology and Oncology at [place] [address] Micha Givens Jr., MD [facility] DR [place] [address] 11/23/2023 3:30 PM EDT Hospital Encounter MRI at [place] [phone] Micha Givens Jr., MD [facility] [address] [place] [address] documented as of this encounter Visit Diagnoses Not on filedocumented in this encounter Care Teams Sales Team Manager Relationship Specialty Start Date End Date Frederick Meade MD [address] [place] [address] PCP - General Family Medicine 11/29/17 documented as of this encounter
--- OUTSIDE RECORDS SUMMARY | 2023-11-16 06:29 | XMS_ITS | Encounter Summary ---
Author Organization [facility] [place] [address] Care Team Providers Care Correctional Counselor/Case Manager Name Role Phone Frederick Meade MD Primary Care Provider [phone] Encounter Details Date Type Department Care Team [...] AM EDT Office Visit Hematology/Oncology at [address] [address] Adrianne Ramon MD [facility] [address] [place] [address] Yael Merlos APRN [facility] [address] [place] [address] 11/21/2023 10:00 AM EDT Infusion Hematology Oncology at [address] [address] 11/23/2023 11:00 AM EDT Office Visit Hematology [place] [phone] Reynold Proctor MD [facility] [place] [address] 11/23/2023 1:00 PM EDT Appointment Hematology [place] [phone] 11/23/2023 2:00 PM EDT Office Visit Hematology [place] [phone] Micha Givens Jr., MD [facility] [place] [address] 11/23/2023 3:30 PM EDT Hospital [place] [address] Micha Givens Jr., MD [facility] [address] [place] [address] documented as of this encounter Visit Diagnoses Not on filedocumented in this encounter Care Teams Correctional Counselor/Case Manager Relationship Specialty Start Date End Date Frederick Meade MD [address] [place] [address] [address] [place] [address] PCP - General Family Medicine 11/29/17 documented as of this encounter
--- OUTSIDE RECORDS SUMMARY | 2023-11-16 06:29 | XMS_ITS | Encounter Summary ---
[place] [address] Care Team Providers Care Magnetic Healer Name Role Phone Fredreick Meade MD Primary Care Provider [phone] Reason for Referral * Diagnostic Test (Routine) - Closed Specialty Diagnoses / Procedures Referred By Contac t Referred To Contact Radiology Diagnoses Diffuse large B-cell lymphoma of lymph nodes of multiple regions Skin nodule Procedures IR Biopsy Lymph Node (Chest/Abdomen/Pelvis) IR Biopsy Lymph Node (Head/Neck) Adrianne Ramon MD [facility] [address] [place] [address] [place] [address] Referral ID Status Reason Start Date Expiration Date V isits Requested Visits Authorized [id number] Closed Specialty Service Requested 08/22/2023 02/21/2025 1 1 * Diagnostic Test (Routine) - Closed Specialty Diagnoses / Procedures Referred By Contac t Referred To Contact Radiology Diagnoses Diffuse large B-cell lymphoma of lymph nodes of multiple regions Skin nodule Procedures NM PET CT Standard Plus Extremities and Head Adrianne Ramon MD [facility] [address] [place] [address] [place] [address] Referral ID Status Reason Start Date Expiration Date V isits Requested Visits Authorized [id number] Closed Specialty Service Requested 08/22/2023 02/21/2025 1 1 Encounter Details Date Type Department Care Team (Late st Contact Info) Description 08/22/2023 12:30 PM EDT Office Visit Hematology/Oncology at [address] [phone] Adrianne Ramon MD [facility] [address] [place] [address] Yael Merlos APRN [facility] [place] [address] Diffuse large B-cell lymphoma of lymph nodes [...] - 08/22/2023 12:30 PM EDT Hematology Clinic [facility] [place] [address] HEMATOLOGY PATIENT EVALUATION PROBLEM LIST: Patient Active [...] [facility] and when to [facility]. No beds so sent to [facility] for [address] CAP, MRI, [...] x7 days with nice response. Pathology from [facility] reports large B-cell lymphoma. Double expresser. FISH for translocations are pending. Tongue swelling. No wt loss. Eating and drinking OK. No fevers, infections, No NS. Pain in neck. Prednisone 60mg daily X 7 days. I feel great on prednisone last day of prednisone is today. Took iron supplements per PCP - unclear cause. - last COLO at [facility] was 01/17/2012. INTERIM HISTORY OF PRESENT [...] and needle of cervical LN. FISH from [place] No MYCrearrangement and no fusion of MYC [...] only 1 biologic. Son Cheo Freire. Enjoys [employer], movies, race car, cards. [employer]. 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 Not a . ETOH: 1-3 beers per week Smoking: Quit 1985. Approximately 98-dzhe-tawy history Vaping or electronic cigarettes: denies Chewing [...] and BCL-2 protein (Double Expressor.) Flow cytometry ([id number]) supports this interpretation. FISH from [place] No MYC rearrangement and no fusion of MYC and IGH was observed, CD3 (SP7, [employer]) Background T-cells CD20 (L26, [place]) diffusely positive in Neoplastic B-cells PAX-5 (1EW, Leica) diffusely positive in Neoplastic B-cells CD10 (SP67, [place]) Negative BCL-6 (G/191E/A8, [place]) Positive MUM-1 (MUM1p, Dako) Positive Myc (Y69, Abcam) Positive BCL-2 Oncoprotein (124, [place]) Positive Ki67 (MIB-1) (K2, Leica) Greater than 95% of cells in cycle Cyclin D1(SP4-R, [place]) Negative SAPPHIRE JOSE ([id number], Leica) Negative. DIAGNOSTICS: 01/25/23 ECHO after C#5 [...] 08/22/2023 left upper extremity ultrasound performed at [facility] Notable findings: In the left antecubital fossa [...] investigation with ultrasound. CT CAP at [facility], report and images have been requested. [...] listed above with ultrasound done today at [facility]. See report in scanned documents. This may represent a recurrence, but it could also be infectious. I spoke to Dr. Bruce Husain at [facility], who recommended large core needle biopsy. [...] keep. We will also do labs at [facility] on day of bio psies. Cardiac -Cheo [...] LVEF at 50-55%. --asymptomatic --repeat echo at [facility] 1 year post completion of therapy [due [...] - [address] at [facility] Surveillance every 3 mos for first year [...] AM EDT Office Visit Hematology/Oncology at [address] [address] Adrianne Ramon MD [facility] [address] [place] [address] Yael Merlos, KARLA [facility] [place] [address] 11/21/2023 10:00 AM EDT Infusion Hematology Oncology at [address] [address] 11/23/2023 11:00 AM EDT Office Visit Hematology [place] [address] Reynold Proctor MD [facility] [place] [address] 11/23/2023 1:00 PM EDT Appointment Hematology [place] [address] 11/23/2023 2:00 PM EDT Office Visit Hematology [place] [address] Micha Givens Jr., MD [facility] [place] [address] 11/23/2023 3:30 PM EDT Hospital [place] [address] Micha Givens Jr., MD [facility] [place] [address] documented as of this encounter Procedures Procedure Name Priority Date/Time Associated Diagnosis Comments CBC (WITH DIFF) Routine 08/22/2023 COMPREHENSIVE METABOLIC PANEL Routine 08/22/2023 documented in this encounter Results * NM PET CT Standard Plus Extremities and Head (09/06/2023 2:45 PM EDT) WORKSTATION ID [id number] RAD Anatomical Region Laterality Modality Positron Emissio [...] who have questions please contact the health resident care aid that requested your imaging first. ? Electronically signed by: Rohan Henley MD, [facility] ([phone]), at 09/10/2023 11:18 AM Narrative 09/10/2023 11:18 [...] unspecified. TECHNIQUE: Procedure: Following IV injection of 77-nlmdks-6-deoxyglucose (FDG) a standard uptake of approximately 60 [...] unspecified. TECHNIQUE: Procedure: Following IV injection of 60-gvnnvw-0-deoxyglucose(FDG) a standard uptake of approximately 60 minutes, [...] patients who have questions please contactthe health resident care aid that requested your imaging first. Electronically signed by: Rohan Henley MD, [facility]([phone]), at 09/10/2023 11:18 AM Adrianne Ramon MD [...] Blood Culture No growth at 5 days. [facility] Blood ANTECUBITAL REGION STRUCTURE / Unknown 09/06/2023 10:12 AM EDT 09/06/2023 10:31 AM EDT Comment:Peripheral culture Narrative Resulting Agency Comment Spec In Lab Adrianne Ramon MD MICROBIOLOGY - B LOOD ORDERABLES [facility] [place] [place] [address] * (ABNORMAL) Lactate Dehydrogenase (09/06/2023 10:12 AM EDT) Lactate Dehydrogenase 251(H) 110 - 220 unit/L [facility] Blood 09/06/2023 10:1 2 AM EDT 09/06/2023 10:16 AM EDT Narrative Resulting Agency Comment Spec In Lab Adrianne Ramon MD CHEMISTRY ORDERA BLES Performing Organization Address City/[facility]/ZIP Co de Phone Number [facility] [place] [address] * (ABNORMAL) Comprehensive metabolic panel (non-fasting) (09/06/2023 10:12 AM EDT) Glucose 170 65 - 199 mg/dL [facility] Comment:Diabetes: >=200 mg/d L plus symptoms Blood Urea Nitrogen 15 10 - 20 mg/dL [facility] Creatinine 1.07 0.80 - 1.50 mg/dL [facility] Sodium 143 135 - 145 mmol/L [facility] Potassium 3.8 3.5 - 5.0 mmol/L [facility] Comment: Please note: ??Patients with WBC >100,000 may have falsely elevated Potassium levels. ??For accurate Potassium quantification in these patients send serum separator tube (gold top) for subsequent determinations. ??Contact the Clinical Chemistry Laboratory if there are any questions. Chloride 107 98 - 107 mmol/L [facility] Carbon Dioxide 25 22 - 31 mmol/L [facility] Anion Gap 11 5 - 15 mmol/L [facility] Calcium 9.2 8.5 - 10.5 mg/dL [facility] Protein, Total 6.1 6.1 - 8.0 g/dL [facility] Albumin 3.7 3.2 - 5.2 g/dL [facility] Aspartate Aminotransferase 37 0 - 39 unit/L [facility] Alanine Aminotransferase 61(H) 0 - 55 unit/L [facility] Alkaline Phosphatase 151(H) 40 - 130 unit/L [facility] Bilirubin, Total 0.3 0.2 - 1.3 mg/dL [facility] Est Glomerular Filtration Rate 72 >=60 mL/min/1. 73 m?? [facility] Comment: This patient's estimated [...] Lab Adrianne Ramon MD CHEMISTRY ORDERA BLES [facility] [place] [address] * Comprehensive metabolic panel (non-fasting) (08/22/2023) Creatinine [...] lump documented in this encounter Care Teams Magnetic Healer Relationship Specialty Start Date End Date Frederick Meade MD [address] [place] [address] PCP - General Family Medicine 11/29/17 documented as of this encounter
--- OUTSIDE RECORDS SUMMARY | 2023-11-16 06:29 | XMS_ITS | Encounter Summary ---
Author Organization [facility] [place] [address] Care Team Providers Care Electrical Superintendent Name Role Phone Frederick Meade MD Primary Care Provider [phone] Encounter Details Date Type Department Care Team (Late st Contact Info) Description 09/14/2023 Telephone Hematology/Oncology at [address] [address] Brenda Priest, RN Social History [...] 09/14/2023 3:11 PM EDT ADD:Sent email to [employer] they will contact [employer] to see what they can get for money for pt. They will update us. Received call from Donita Jimenez At [employer] ([phone]) stating that they received the application for patient financial assistance for Revlimid. States that there is a Revlimid prescription claim in [facility] which is showing that the patient has met his OOP max. She suggests that we call [facility] and ask that they reverse the claim because patient hasn't received drug. This willallow them to see what his co-pay will be so that they can determine eligibility for financial assistance and free drug. RN call to [facility] spoke with pharmacy laboratory technician who states that the claim was reversed on their end on 09/11 at 5pm. Suggests that I call his insurance to discuss and ask them to reverse the claim. Call to [employer] ([phone]) spoke with someone who transferred me to [employer].Spoke with Marcos at [employer], pharmacy services for claim reversal. Also states that the claim was reversed by [facility] on 09/11, no claim in process at this time. Call to [employer] Access support, spoke with Donita Jimenez - states that this patient is qualified for a toi.They need to apply for this open toi to try before being able to get free drug. [employer] - [phone] or [email or web address] - can apply by phone or website. documented in this encounter Plan of Treatment Upcoming Encounters Date Type Department Care Team (Late st Contact Info) Description 11/21/2023 9:30 AM EDT Office Visit Hematology/Oncology at [address] [address] Adrianne Ramon MD [facility] [place]AT[place] [address] Yael Merlos APRN [facility] [place] [address] 11/21/2023 10:00 AM EDT Infusion Hematology Oncology at [address] [phone] 11/23/2023 11:00 AM EDT Office Visit Hematology and Oncology at [place] [phone] Reynold Proctor MD [facility] [place] [address] 11/23/2023 1:00 PM EDT Appointment Hematology and Oncology at [place] [phone] 11/23/2023 2:00 PM EDT Office Visit Hematology and Oncology at [place] [phone] Micha Givens Jr., MD [facility] [place] [address] 11/23/2023 3:30 PM EDT Hospital Encounter MRI at [place] [phone] Micha Givens Jr., MD [facility] [place] [address] documented as of this encounter Visit Diagnoses Not on filedocumented in this encounter Care Teams Electrical Superintendent Relationship Specialty Start Date End Date Frederick Meade MD [address] [place] [address] PCP - General Family Medicine 11/29/17 documented as of this encounter
--- OUTSIDE RECORDS SUMMARY | 2023-11-16 06:29 | XMS_ITS | Encounter Summary ---
[place] [address] Care Team Providers Care Pilot Plant Operator Helper Name Role Phone Frederick Meade MD Primary Care Provider [phone] [phone] Reason for Referral * Diagnostic Test (Routine) - Closed Specialty Diagnoses / Procedures Referred By Contac t Referred To Contact Cardiology Diagnoses Diffuse large B-cell lymphoma of lymph nodes of multiple regions High risk medication use Procedures Echocardiogram Transthoracic Adrianne Ramon MD [facility] [address] [place] [address] [facility] [address] [place] [address] Referral ID Status Reason Start Date Expiration Date V isits Requested Visits Authorized [id number] Closed Specialty Service Requested 09/12/2023 03/10/2024 1 1 * Consultation (Routine) - Closed Specialty Diagnoses / Procedures Referred By Contac t Referred To Contact Hematology and Oncology Diagnoses Diffuse large B-cell lymphoma of lymph nodes of multiple regions Adrianne Ramon MD [facility] [address] [place] [address] [facility] [address] [place] [address] Referral ID Status Reason Start Date Expiration Date V isits Requested Visits Authorized [id number] Closed Specialty Service Requested 09/12/2023 09/11/2024 1 1 Encounter Details Date Type Department Care Team (Late st Contact Info) Description 09/12/2023 10:15 AM EDT Office Visit Hematology/Oncology at [address] [phone] Adrianne Ramon MD [facility] [place] [address] Yael Merlos APRN [facility] [place] [address] Diffuse large B-cell lymphoma of lymph nodes [...] Hematology Clinic [facility] [place] [address] HEMATOLOGY PATIENT EVALUATION PROBLEM LIST: Patient Active [...] in [facility] and when to [facility]. No beds so sent to [facility] for [address] CAP, MRI, [...] unclear cause. - last COLO at [facility] was 01/17/2012. INTERIM HISTORY OF [...] and needle of cervical LN. FISH from [place] No MYCrearrangement and no fusion of MYC [...] only 1 biologic. Son Cheo Freire. Enjoys [employer], [employer], race car, cards. [employer]. 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 Not a . ETOH: 1-3 beers per week Smoking: Quit 1985. Approximately 57-kqxk-hskm history Vaping or electronic cigarettes: denies Chewing [...] is a delightful 73-year old male in [facility]. He is accompanied to the clinic [...] and BCL-2 protein (Double Expressor.) Flow cytometry ([id number]) supports this interpretation. FISH from [place] No MYC rearrangement and no fusion of MYC and IGH was observed, CD3 (SP7, [employer] Scientific) Background T-cells CD20 (L26, [place]) diffusely positive in Neoplastic B-cells PAX-5 (1EW, Leica) diffusely positive in Neoplastic B-cells CD10 (SP67, [place]) Negative BCL-6 (G/191E/A8, [place]) Positive MUM-1 (MUM1p, Dako) Positive Myc (Y69, [employer]cam) Positive BCL-2 Oncoprotein (124, [place]) Positive Ki67 (MIB-1) (K2, Leica) Greater than 95% of cells in cycle Cyclin D1(SP4-R, [place]) Negative SAPPHIRE JOSE ([id number], Leica) Negative. DIAGNOSTICS: 01/25/23 ECHO after C#5 [...] 08/22/2023 left upper extremity ultrasound performed at [facility] Notable findings: In the left [...] undergo investigation with ultrasound. CT CAP at [facility], report and images have been [...] away from [facility]. They feel comfortable that they have the [...] applied for and distributed from the pharmaceutical [employer]. Side effects he might experience were explained to her and include fatigue, edema, dizziness, headache, pruritis, rash, GI upset including diarrhea, constipation, nausea, vomiting, myelosuppression, neut ropenic fever, infection, liver toxicity, neuropathy. Increased risk of DVT on lenalidomide and we discussed the need for full ASA 325mg daily prophylaxis. Recently there has a report of increase in arterial thrombosis (CVA/[place]) as well. This risk is very small. [...] LVEF at 50-55%. --asymptomatic --repeat echo at [facility] 1 year post completion of [...] AM EDT Office Visit Hematology/Oncology at [address] [phone] Adrianne Ramon MD [facility] [address] [place] [address] Yael Merlos APRN [facility] [place] [address] 11/21/2023 10:00 AM EDT Infusion Hematology Oncology at [address] [address] 11/23/2023 11:00 AM EDT Office Visit Hematology [place] [address] Reynold Proctor MD [facility] [place] [address] 11/23/2023 1:00 PM EDT Appointment Hematology [place] [address] 11/23/2023 2:00 PM EDT Office Visit Hematology [place] [address] Micha Givens Jr., MD [facility] [address] [place] [address] 11/23/2023 3:30 PM EDT [place] [address] Micha Givens Jr., MD [facility] [address] [place] [address] Scheduled Orders Name Type Priority Associated Diagnoses [...] medications documented in this encounter Care Teams Pilot Plant Operator Helper Relationship Specialty Start Date End Date Frederick Meade MD [address] [place] [address] [address] [facility] [address] [place] [address] PCP - General Family Medicine 11/29/17 documented as of this encounter
--- OUTSIDE RECORDS SUMMARY | 2023-11-16 06:29 | XMS_ITS | Encounter Summary ---
[place] [address] Care Team Providers Care Farmworker Dairy Name Role Phone Frederick Meade MD Primary Care Provider [phone] [phone] Reason for Referral * Diagnostic Test (Routine) - Closed Specialty Diagnoses / Procedures Referred By Contac t Referred To Contact Radiology Diagnoses Diffuse large B-cell lymphoma of lymph nodes of multiple regions Procedures IR Mediport Removal Yael Merlos AIR PRESS OPERATOR [facility] [place] [address] [facility] [place] [address] Referral ID Status Reason Start Date Expiration Date V isits Requested Visits Authorized [id number] Closed Specialty Service Requested 03/15/2023 09/12/2024 1 1 Reason for Visit * Diagnostic Test (Routine) - Closed Specialty Diagnoses / Procedures Referred By Contac t Referred To Contact Radiology Diagnoses Diffuse large B-cell lymphoma of lymph nodes of multiple regions Procedures IR Mediport Removal Yael Merlos AIR PRESS OPERATOR [facility] [place] [address] [facility] [place] [address] Referral ID Status Reason Start Date Expiration Date V isits Requested Visits Authorized [id number] Closed Specialty Service Requested 03/15/2023 09/12/2024 1 1 Encounter Details Date Type Department Care Team (Latest Contact Info) Description 03/29/2023 12:51 PM EST - 03/29/2023 11:59 PM EST Hospital Encounter Radiology [place] [facility] [place] [address] Yael Merlos APRN [facility] [place] [address] Diffuse large B-cell lymphoma of lymph nodes [...] Zacarias RN - 03/29/2023 2:08 PM EST [facility] Vascular and Interventional Radiology Discharge Instructions for [...] not peel them off. There may be [place]mcqueen (skin glue) also, allow this to flake [...] is during regular office hours, please call [phone]. If it is after regular office hours, or on weekends or holidays, please call [phone] and ask to speak to the Animal Nursery Worker ironing machine operator for Interventional Radiology. You have received medication [...] tablet Take 5 mg by mouth daily. PK Clean ULTRA BLUE TEST STRIP Strip USE TO [...] Take 0.4 mg by mouth daily. 08/22/2023 lactobacillus (BACID) Capsule Take 1 tablet by mouth daily. 10/17/2023 documented as of this encounter Progress Notes * Andreas Cadlwell RN - 03/29/2023 11:59 PM EST Follow up call completed for Mediport Removal on 03/30/23. Patient states that they have no concerns or questions at this time and was encouraged to call IR Department should any question or concerns arise. * Shira Zacarias RN - 03/29/2023 2:02 PM EST [facility] DATAB[facility] Name: Cheo Freire Date of : 1950 AGE: 72 y.o. Address: [address] [place] [address] Phone: [phone] (home) Mobile: Telephone Information: Referring Provider: Yael Merlos REASON FOR VISIT: Order Questions Answers Where will study be performed? [facility] Radiology [120] Reason for exam and [...] AM EDT Office Visit Hematology/Oncology at [address] [address] Adrianne Ramon MD [facility] [place] [address] Yael Merlos APRN [facility] [place] [address] 11/21/2023 10:00 AM EDT Infusion Hematology Oncology at [address] [address] 11/23/2023 11:00 AM EDT Office Visit Hematology [place] [phone] Reynold Proctor MD [facility] [place] [place] [address] 11/23/2023 1:00 PM EDT Appointment Hematology [place] [phone] 11/23/2023 2:00 PM EDT Office Visit Hematology [place] [address] Micha Givens Jr., MD [facility] [place] [address] 11/23/2023 3:30 PM EDT Hospital [place] [address] Micha Givens Jr., MD [facility] [place] [address] documented as of this encounter Procedures Procedure [...] port explant Indication: Lymphoma, therapy complete, discontinue senior living central venous access for chemotherapy Pre-procedure: Informed [...] venous port with all components accounted for. dado operator: ??Chalo Crews PA-C Attending of record: Ole Arvizu MD 03/29/2023 Yael Merlos AIR PRESS OPERATOR IMG IR ORDERABLES documented in this [...] section) documented in this encounter Care Teams Farmworker Dairy Relationship Specialty Start Date End Date Frederick Meade MD [address] [place] [address] PCP - General Family Medicine 11/29/17 documented as of this encounter
--- OUTSIDE RECORDS SUMMARY | 2023-11-16 06:29 | XMS_ITS | Encounter Summary ---
Author Organization [facility] [place] [address] Care Team Providers Care Pastry Sous Chef Name Role Phone Frederick Meade MD Primary Care Provider [phone] Reason for Referral * Diagnostic Test (Routine) - Closed Specialty Diagnoses / Procedures Referred By Contac t Referred To Contact Radiology Diagnoses Diffuse large B-cell lymphoma of lymph nodes of multiple regions Skin nodule Procedures IR Biopsy Lymph Node (Chest/Abdomen/Pelvis) IR Biopsy Lymph Node (Head/Neck) Adrianne Ramon MD [facility] [place] [address] [place] [address] Referral ID Status Reason Start Date Expiration Date V isits Requested Visits Authorized [id number] Closed Specialty Service Requested 08/22/2023 02/21/2025 1 1 Reason for Visit * Diagnostic Test (Routine) - Closed Specialty Diagnoses / Procedures Referred By Contac t Referred To Contact Radiology Diagnoses Diffuse large B-cell lymphoma of lymph nodes of multiple regions Skin nodule Procedures IR Biopsy Lymph Node (Chest/Abdomen/Pelvis) IR Biopsy Lymph Node (Head/Neck) Adrianne Ramon MD [facility] [address] [place] [address] [facility] [address] Referral ID Status Reason Start Date Expiration Date V isits Requested Visits Authorized [id number] Closed Specialty Service Requested 08/22/2023 02/21/2025 1 1 Encounter Details Date Type Department Care Team (Late st Contact Info) Description 09/06/2023 10:15 AM EDT - 09/06/2023 12:58 PM EDT Hospital [place] [address] Adrianne Ramon MD [facility] [place] [address] Diffuse large B-cell lymphoma of [...] Caldwell RN - 09/06/2023 9:38 AM EDT [facility] Vascular and Interventional Radiology Lymph node [...] be reported to you by your primary intensive care unit nurse or the clinician who ordered the biopsy. Please do not call us for results as we will not have them. If you have not been contacted by your clinician within 5 business days you should call that officefor further information. When to call the Interventional Radiology Department: Please call with any questions or concerns. If it is during regular office hours, please call [phone]. If it is after regular office hours, or on weekends or holidays, please call [phone] and ask to speak to the Trade Show Specialist agricultural education instructor for Interventional Radiology. ---- documented in this [...] of : 1950 AGE: 73 y.o. Address: [address] [place] [address] [address] [facility] [address] Phone: [phone] (home) Mobile: Telephone Information: Referring Provider: Adrianne Ramon REASON FOR VISIT: Order Questions Answers Where will study be performed? [facility] Radiology [120] To be scheduled [...] Questions Answers Where will study be performed? [facility] Radiology [120] To be scheduled [...] IR Mediport Placement 10/17/2022 Gail Jha PA [facility] INTERVENTIONL RAD IR MEDIPORT REMOVAL 03/29/2023 IR Mediport Removal 03/29/2023 Ole Arvizu MD [facility] INTERVENTIONL RAD TONSILLECTOMY 1958 Social [...] AM EDT Office Visit Hematology/Oncology at [address] [phone] Adrianne Ramon MD [facility] [address] [place] [address] Yael Merlos, KITCHEN HELPER [facility] [place] [address] 11/21/2023 10:00 AM EDT Infusion Hematology Oncology at [address] [phone] 11/23/2023 11:00 AM EDT Office Visit [place]ematology [place] [phone] Reynold Proctor MD [facility] [place] [address] 11/23/2023 1:00 PM EDT Appointment Hematology [place] [phone] 11/23/2023 2:00 PM EDT Office Visit [place]ematology [place] [phone] Micha Givens Jr., MD [facility] [place] [address] 11/23/2023 3:30 PM EDT [place] [address] Micha Givens Jr., MD [facility] [place] [address] documented as of this encounter Procedures Procedure [...] performed this procedure. ? Adrianne Ramon MD [facility] IR ORDERABLE S * Flow Cytometry Report (09/06/2023 12:28 PM EDT) Flow Cytometry Report [id number] ? Location: [facility] The signing pathologist has (i) examined the relevant preparation(s) for the specimen(s) and (ii) rendered or confirmed the diagnosis(es). . ?Flow Cytometry DIAGNOSIS ? 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 See comment. Electronically signed by: ?Dana OCASIO, Filemon Verified: ??09/10/2023 15:05 ??Hematopathologist Performed at: ??-[facility] Dept. of Pathology, [place] [address] Manager Title: Katherine Lopez MD, FCAP, ??CLIA Certificate: [id number] DISCUSSION The T-lymphocytes , B- lymphocytes and [...] by the Clinical Flow Cytometry Laboratory at [facility]. It has not been cleared or [...] high complexity clinical laboratory testing. SPECIMEN PROCESSING [id number] Cells for immunophenotypic analysis were derived from [...] O RDERABLES [facility] [place] [place] [address] * Immunophenotyping Flow Cytometry (09/06/2023 12:28 PM EDT) Immunophenotyping Flow See Comment [facility] Comment: When completed by the Pathologist, the Flow Cytometry Report ([id number]) will display under the Pathology Results section within eDH. Other 09/06/2023 12:2 8 PM EDT 09/06/2023 12:47 PM EDT Narrative Resulting Agency Comment Spec In Lab Micha Pearl MD HEMATOLOGY ORDERABLE S [facility] [place] [id number] * Flow Cytometry Report (09/06/2023 11:40 AM EDT) Flow Cytometry Report [id number] ? Location: [facility] The signing pathologist has (i) examined the relevant preparation(s) for the specimen(s) and (ii) rendered or confirmed the diagnosis(es). . ?Flow Cytometry DIAGNOSIS Flow cytometric diagnosis: ?? No ??B-cell population or phenotypically abnormal T-cell population is detected. Electronically signed by: ?Dana OCASIO, Filemon Verified: ??09/07/2023 15:52 ??Hematopathologist Performed at: ??-[facility] Dept. of Pathology, [place] [address] Manager Title: Katherine Lopez MD, FCAP, ??CLIA Certificate: [id number] DISCUSSION Blasts based on CD45 expression and [...] 5, 7). There is no increase in BB76-pkxxymwl/CD3-n eg NK cells. Flow analysis is an ancillary study. A definite diagnosis requires correlation with the morphologic features of this process and if necessary, correlation with other ancillary studies like immunohistochemistr y, enzyme cytochemistry and/or cyto/ molecular genetics. This test was developed and its performance characteristics determined by the Clinical Flow Cytometry Laboratory at [facility]. It has not been cleared or [...] high complexity clinical laboratory testing. SPECIMEN PROCESSING [id number] Cells for immunophenotypic analysis were derived from left arm collection. CD45 vs side scatter gating was utilized to identify a lymphoid analysis region that comprises approximately 18-27% of all cells. The following markers were assessed: CD2, CD3, CD4, CD5, CD7, CD8, CD10, CD19, CD45, CD56, kappa light chain, and lambda light chain. CLINICAL INFORMATION [facility] LABORATORY 09/06/2023 11:4 0 AM EDT James Champion DO PATHOLOGY/CYTOLOGY O RDERABLES Performing Organization Address City/[facility]/ZIP [place] [address] * Immunophenotyping Flow Cytometry (09/06/2023 11:40 AM EDT) Immunophenotyping Flow See Comment [facility] Comment: When completed by the Pathologist, the Flow Cytometry Report ([id number]) will display under the Pathology Results section within eD. Other 09/06/2023 11:4 0 AM EDT 09/06/2023 12:11 PM EDT Narrative Resulting Agency Comment Spec In Lab James Champion DO HEMATOLOGY ORDERABLE S [facility] [place] [address] * chromo report acquired (09/06/2023 11:35 AM EDT) Cytogenetics Acquired Report Final Report ? [id number] Specimen Type: Fixed Tissue Specimen Condition: 1 [...] using dual-color, break-apart probes for BCL6/3q27 rearrangement ([employer] shows a signal pattern consistent with a BCL6 rearrangement in 0% of 100 cells. This is within the acceptable reference limits (0-7.4%). Thus, there is no evidence for BCL6/3q27 gene rearrangement. Interphase FISH analysis using dual-color, break-apart probes for MYC/8q24 rearrangement ([employer] shows 0% of 100 cells with a MYC rearrangement signal pattern. This is within acceptable reference limits (0-6.0%). Thus, there is no evidence for MYC/8q24 gene rearrangement. Interphase FISH analysis using dual-color, dual-fusion probes for MYC-IGH/t(8;14)(q2 4;q32) ([employer] shows 0% of 100 cells with [...] performance characteristics were determined by the [facility] ([facility]) Cytogenetics Laboratory as required by The [...] the test? s accuracy and precision. The [facility] Cytogenetics Laboratory is certified under the CLIA? 88 as qualified to perform high complexity clinical laboratory testing. Chromosome alterations outside the regions complementary to these DNA FISH probes will not be detected. 09.20.23 (Electronic Signature) Verified By: Channing Ph.D., [facility], Tommy Loja Clinical Drink Box Mechanic/Mol ecular Construction Plumber [facility] 09/06/2023 11:3 5 AM EDT 09/11/2023 8:57 AM EDT James Champion DO HEMATOLOGY ORDERABLE S [facility]ORATORY [place] [id number] * (ABNORMAL) Surgical Pathology Report (09/06/2023 11:35 AM EDT) Surgical Pathology Report [id number] ? Location: [facility] The signing pathologist has (i) examined the [...] Filemon Verified: ??09/10/2023 18:38 ??Hematopathologist Performed at: ??-[facility] Dept. of Pathology, [place] [address] Manager Title: Katherine Lopez MD, FCAP, ??CLIA Certificate: [id number] SYNOPTIC THIS RESULT REQUIRES PHYSICIAN/A.P.P. FOLLOW UP [...] lymphoid neoplasms . Blood . 2016. 127 (20):8515-5436. Rafael CP et al . Blood 103:275-282 [...] EDT James Champion DO PATHOLOGY/CYTOLOGY O RDERABLES [facility] [place] [address] * Anaerobic Culture (09/06/2023 11:25 AM EDT) Anaerobic Culture No anaerobic organisms isolated [facility] Arm 09/06/2023 11:2 5 AM EDT 09/06/2023 12:21 PM EDT Comment:Left Arm Collection versus mass Narrative Resulting Agency Comment Spec In Lab James Champion DO MICROBIOLOGY - GENER AL ORDERABLES Performing Organization Address [facility] Co de Phone Number [facility] [place] [address] * Tissue culture (09/06/2023 11:25 AM EDT) Tissue Culture No growth [facility] Gram Stain Few Neutrophils seen No microorganisms seen. [facility] Arm 09/06/2023 11:2 5 AM EDT 09/06/2023 12:21 PM EDT Comment:Left Arm Collection versus mass Narrative Resulting Agency Comment Spec In Lab James Champion DO MICROBIOLOGY - GENER AL ORDERABLES Performing Organization Address [facility] Co de Phone Number [facility] [place] [address] * Calcofluor White Stain (09/06/2023 11:25 AM EDT) Calcofluor Stain Calcofluor White Preparation: Negative [facility] Other 09/06/2023 11:2 5 AM EDT 09/06/2023 12:21 PM EDT Comment:Left Arm Collection versus Mass Narrative Resulting Agency Comment Spec In Lab James Champion DO MICROBIOLOGY - GENER AL ORDERABLES Performing Organization Address [facility] Co de Phone Number [facility] [place] [address] * Fungus culture (09/06/2023 11:25 AM EDT) Fungus Culture No Fungus isolated [facility] Other 09/06/2023 11:2 5 AM EDT 09/06/2023 12:21 PM EDT Comment:Left Arm Collection versus Mass Narrative Resulting Agency Comment Spec In Lab James Champion DO MICROBIOLOGY - GENER AL ORDERABLES Performing Organization Address City/[facility]/Z[place] [address] * AFB culture (09/06/2023 11:25 AM EDT) Acid Fast Bacilli Culture No Acid Fast Bacilli isolated [facility] Acid Fast Stain No Acid Fast Bacilli seen [facility] Other 09/06/2023 11:2 5 AM EDT 09/06/2023 12:21 PM EDT Comment:Left Arm Collection versus Mass Narrative Resulting Agency Comment Spec In Lab James Champion DO MICROBIOLOGY - GENER AL ORDERABLES Performing Organization Address [facility] [place] [address] * Specimen to Pathology (09/06/2023 11:20 AM EDT) AP Specimen 09/06/2023 11:2 0 AM EDT 09/06/2023 11:20 AM EDT Narrative [facility] - 09/06/2023 11:20 AM EDT Specimen requisition ordered. ??Separate Pathology report to follow James Champion DO PATHOLOGY/CYTOLOGY O RDERABLES Performing Organization Address City/[facility]/[place] [address] * Specimen to Pathology (09/06/2023 10:43 AM EDT) AP Specimen 09/06/2023 10:4 3 AM EDT 09/06/2023 10:43 AM EDT Narrative [facility] - 09/06/2023 10:43 AM EDT Specimen requisition ordered. ??Separate Pathology report to follow Micha Pearl MD PATHOLOGY/CYTOLOGY O RDERABLES Performing Organization Address City/[facility]/[place] [address] * Cytopathology Non-Gynecological (09/06/2023 10:41 AM EDT) AP Specimen 09/06/2023 10:4 1 AM EDT 09/06/2023 10:41 AM EDT Narrative [facility] - 09/06/2023 10:41 AM EDT Specimen requisition ordered. ??Separate Pathology report to follow Micha Pearl MD PATHOLOGY/CYTOLOGY O RDERABLES [facility] [address] documented in this encounter Visit Diagnoses Diagnosis [...] mg documented in this encounter Care Teams Pastry Sous Chef Relationship Specialty Start Date End Date Frederick Meade MD [address] [place] [address] PCP - General Family Medicine 11/29/17 documented as of this encounter
--- OUTSIDE RECORDS SUMMARY | 2023-11-16 06:29 | XMS_ITS | Encounter Summary ---
Author Organization Count Includes [facility] [place] [address] Care Team Providers Care Technology Manager Name Role Phone Frederick Meade MD Primary Care Provider [phone] Encounter Details Date Type Department Care Team [...] AM EDT Office Visit Hematology/Oncology at [address] [address] Adrianne Ramon MD [facility] [address] [place] [address] Yael Merlos APRN [facility] [address] [place] [address] 11/21/2023 10:00 AM EDT Infusion Hematology Oncology at [address] [phone] 11/23/2023 11:00 AM EDT Office Visit Hematology [place] [phone] Reynold Proctor MD [facility] [place] [address] 11/23/2023 1:00 PM EDT Appointment Hematology [place] [phone] 11/23/2023 2:00 PM EDT Office Visit Hematology [place] [phone] Micha Givens Jr., MD [facility] [place] [address] 11/23/2023 3:30 PM EDT [place] [address] Micha Givens Jr., MD [facility] [address] [place] [address] documented as of this encounter Visit Diagnoses Not on filedocumented in this encounter Care Teams Technology Manager Relationship Specialty Start Date End Date Frederick Meade MD [address] [place] [address] [address] [place] [address] PCP - General Family Medicine 11/29/17 documented as of this encounter
--- OUTSIDE RECORDS SUMMARY | 2023-11-16 06:29 | XMS_ITS | Encounter Summary ---
Author Organization [facility] [place] [address] Care Team Providers Care Oil Drilling Engineer Name Role Phone Frederick Meade MD Primary Care Provider [phone] Encounter Details Date Type Department Care Team [...] AM EDT Office Visit Hematology/Oncology at [address] [address] Adrianne Ramon MD [facility] [address] [place] [address] Yael Merlos APRN [facility] [address] [place] [address] 11/21/2023 10:00 AM EDT Infusion Hematology Oncology at [address] [address] 11/23/2023 11:00 AM EDT Office Visit Hematology [place] [phone] Reynold Proctor MD [facility] [place] [address] 11/23/2023 1:00 PM EDT Appointment Hematology [place] [phone] 11/23/2023 2:00 PM EDT Office Visit Hematology [place] [phone] Micha Givens Jr., MD [facility] [place] [address] 11/23/2023 3:30 PM EDT Hospital [place] [address] Micha Givens Jr., MD [facility] [address] [place] [address] documented as of this encounter Visit Diagnoses Not on filedocumented in this encounter Care Teams Oil Drilling Engineer Relationship Specialty Start Date End Date Frederick Meade MD [address] [place] [address] [address] [place] [address] PCP - General Family Medicine 11/29/17 documented as of this encounter
--- OUTSIDE RECORDS SUMMARY | 2023-11-16 06:29 | XMS_ITS | Encounter Summary ---
Author Organization [facility] Address [facility] [place] [address] Care Team Providers Care Auto Apprentice Mechanic Name Role Phone Frederick Meade MD Primary Care Provider +1 [phone] Encounter Details Date Type Department Care Team (Late st Contact Info) Description 09/12/2023 Telephone Hematology/Oncology at [address] [address] Adrianne Ramon MD [facility] DR HEMATOLOGY [place] [address] Social History Tobacco Use Types Packs/Day Years [...] AM EDT Office Visit Hematology/Oncology at [address] [address] Adrianne Ramon MD [facility] DR HEMATOLOGY [place] [address] Yael Merlos APRN [facility] DR HEMATOLOGY [place] [address] 11/21/2023 10:00 AM EDT Infusion Hematology Oncology at [address] [address] 11/23/2023 11:00 AM EDT Office Visit Hematology [place] [address] Reynold Proctor MD [facility] [place] [address] 11/23/2023 1:00 PM EDT Appointment Hematology [place] [address] 11/23/2023 2:00 PM EDT Office Visit Hematology [place] [address] Micha iGvens Jr., MD [facility] DR HEMATOLOGY [place] [address] 11/23/2023 3:30 PM EDT Hospital [place] [address] Micha Givens Jr., MD [facility] DR HEMATOLOGY [place] [address] documented as of this encounter Visit Diagnoses Diagnosis Diffuse large B-cell lymphoma of lymph nodes of multiple regions documented in this encounter Care Teams Auto Apprentice Mechanic Relationship Specialty Start Date End Date Frederick Meade MD [address] [place] [address] PCP - General Family Medicine 11/29/17 documented as of this encounter
--- OUTSIDE RECORDS SUMMARY | 2023-11-16 06:29 | XMS_ITS | Encounter Summary ---
Author Organization [facility] [address] Care Team Providers Care Sales Marketing Coordinator Name Role Phone Frederick Meade MD Primary Care Provider +1 [phone] Encounter Details Date Type Department Care Team [...] Office Visit Hematology/Oncology at [address] [address] Adrianne Ramon MD [facility] DR [place] [address] Yael Merlos APRN [facility] [address] [place] [address] 11/21/2023 10:00 AM EDT Infusion Hematology Oncology at [address] [address] 11/23/2023 11:00 AM EDT Office Visit [place]ematology [place] [address] Reynold Proctor MD [facility] [place] [address] 11/23/2023 1:00 PM EDT Appointment Hematology [place] [address] 11/23/2023 2:00 PM EDT Office Visit [place]ematology [place] [address] Micha Givens Jr., MD [facility] [place] [address] 11/23/2023 3:30 PM EDT [place] [address] Micha Givens Jr., MD [facility] DR [place] [address] documented as of this encounter Visit Diagnoses Not on filedocumented in this encounter Care Teams Sales Marketing Coordinator Relationship Specialty Start Date End Date Frederick Meade MD [address] [place] [address] [address] [place] [address] PCP - General Family Medicine 11/29/17 documented as of this encounter
--- OUTSIDE RECORDS SUMMARY | 2023-11-16 06:29 | XMS_ITS | Encounter Summary ---
Author Organization [facility] Address [facility] [place] [address] Care Team Providers Care Administrative Appeals Tribunal Member Name Role Phone Frederick Meade MD Primary Care Provider +1 [phone] Reason for Visit * Reason Onset Date Comments New Medication Request 09/12/2023 revlimid Encounter Details Date Type Department Care Team (Late st Contact Info) Description 09/12/2023 Telephone Hematology/Oncology at [address] [address] Polly Orellana RN New Medication [...] Prescriber online survey done 09/12/23 with the [employer] Revlimid REMS Program Rev[employer] Auth # [id number] Pt Survey done on 09/12/23 Prescription to be manually faxed to [employer] [phone] phone [phone] after obtaining signature Adrianne Ramon MD Script [...] AM EDT Office Visit Hematology/Oncology at [address] [phone] Adrianne Ramon MD [facility] DR HEMATOLOGY AND ONCOLOGY [place], [place] [address] Yael Merlos, KARLA [facility] [place] [address] 11/21/2023 10:00 AM EDT Infusion Hematology Oncology at [address] [address] 11/23/2023 11:00 AM EDT Office Visit Hematology and Oncology at [place] [phone] Reynold Proctor MD [facility] [place] [address] 11/23/2023 1:00 PM EDT Appointment Hematology and Oncology at [place] [phone] 11/23/2023 2:00 PM EDT Office Visit Hematology and Oncology at [place] [phone] Micha Givens Jr., MD [facility] DR [place] [address] 11/23/2023 3:30 PM EDT Hospital Encounter MRI at [place] [phone] Micha Givens Jr., MD [facility] DR [place] [address] documented as of this encounter Visit Diagnoses Not on filedocumented in this encounter Care Teams Administrative Appeals Tribunal Member Relationship Specialty Start Date End Date Frederick Meade MD [address] [place] [address] [address] [place] [address] PCP - General Family Medicine 11/29/17 documented as of this encounter
--- OUTSIDE RECORDS SUMMARY | 2023-11-16 06:29 | XMS_ITS | Encounter Summary ---
Author [place] [address] Care Team Providers Care Shear Grinder Operator Name Role Phone Frederick Meade MD Primary Care Provider [phone] [phone] Encounter Details Date Type Department Care Team (Late st Contact Info) Description 06/22/2023 Orders Only Hematology [place] [phone] Deidre Silverio Social History Tobacco Use Types [...] AM EDT Office Visit Hematology/Oncology at [address] [address] Adrianne Ramon MD [facility] [place] [address] Yael Merlos APRN [facility] [place] [address] 11/21/2023 10:00 AM EDT Infusion Hematology Oncology at [address] [address] 11/23/2023 11:00 AM EDT Office Visit Hematology [place] [phone] Reynold Proctor MD [facility] [place] [address] 11/23/2023 1:00 PM EDT Appointment Hematology [place] [address] 11/23/2023 2:00 PM EDT Office Visit Hematology [place] [address] Micha Givens Jr., MD [facility] [place] [address] 11/23/2023 3:30 PM EDT Hospital [place] [address] Micha Givens Jr., MD [facility] [place] [address] documented as of this encounter Visit Diagnoses Not on filedocumented in this encounter Care Teams Shear Grinder Operator Relationship Specialty Start Date End Date Frederick Meade MD [facility] [address] [place] [address] PCP - General Family Medicine 11/29/17 documented as of this encounter
--- OUTSIDE RECORDS SUMMARY | 2023-11-16 06:29 | XMS_ITS | Encounter Summary ---
[place] [address] Care Team Providers Care Dextrine Mixer Name Role Phone Frederick Meade MD Primary Care Provider +1 [phone] Reason for Referral * Diagnostic Test (Routine) - Closed Specialty Diagnoses / Procedures Referred By Contac t Referred To Contact Radiology Diagnoses Diffuse large B-cell lymphoma of lymph nodes of multiple regions Procedures IR Mediport Removal Yael Merlos COMPUTER ARTIST [facility] [place] [address] [facility] [place] [address] Referral ID Status Reason Start Date Expiration Date V isits Requested Visits Authorized [id number] Closed Specialty Service Requested 03/15/2023 09/12/2024 1 1 Encounter Details Date Type Department Care Team (Late st Contact Info) Description 03/15/2023 Orders Only Hematology [place] [address] Yael Merlos COMPUTER ARTIST [facility] [place] [address] Diffuse large B-cell lymphoma of [...] AM EDT Office Visit Hematology/Oncology at [address] [address] Adrianne Ramon MD [facility] [place] [address] Yael Merlos, COMPUTER ARTIST [facility] [place] [address] 11/21/2023 10:00 AM EDT Infusion Hematology Oncology at [address] [address] 11/23/2023 11:00 AM EDT Office Visit Hematology [place] [address] Reynold Proctor MD [facility] [place] [address] 11/23/2023 1:00 PM EDT Appointment Hematology and Oncology at [place] [phone] 11/23/2023 2:00 PM EDT Office Visit Hematology [place] [address] Micha Givens Jr., MD [facility] DR [place] [address] 11/23/2023 3:30 PM EDT Hospital Encounter MRI at [place] [phone] Micha Givens Jr., MD [facility] [place] [address] documented as of this encounter Results * [...] venous port with all components accounted for. 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
--- OUTSIDE RECORDS SUMMARY | 2023-11-16 06:29 | XMS_ITS | Encounter Summary ---
[place] [address] Care Team Providers Care Rehabilitation Center Manager Name Role Phone Frederick Meade MD Primary Care Provider [phone] [phone] Encounter Details Date Type Department Care Team (Late st Contact Info) Description 03/15/2023 Orders Only Radiology at [facility] [place] [address] Aaron Husain MD [facility] [place] [address] Social History Tobacco Use Types Packs/Day Years [...] IR Mediport Placement 10/17/2022 Gail Jha PA [facility] INTERVENTIONL RAD TONSILLECTOMY 1958 Medications: Current [...] Not on file Occupational History 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, 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 Tobacco Use Smoking status: Former Packs/day: [...] AM EDT Office Visit Hematology/Oncology at [address] [phone] Adrianne Ramon MD [facility] DR [place] [address] Yael Merlos APRN [facility] DR [place] [address] 11/21/2023 10:00 AM EDT Infusion Hematology Oncology at [address] [address] 11/23/2023 11:00 AM EDT Office Visit Hematology and Oncology at [address] Reynold Proctor MD [facility] [place] [address] 11/23/2023 1:00 PM EDT Appointment Hematology and Oncology at [address] 11/23/2023 2:00 PM EDT Office Visit [place]ematology [place] [address] Micha Givens Jr., MD [facility] DR [place] [address] 11/23/2023 3:30 PM EDT Hospital Encounter MRI at [place] [phone] Micha Givens Jr., MD [facility] DR [place] [address] documented as of this encounter Visit Diagnoses Not on filedocumented in this encounter Care Teams Rehabilitation Center Manager Relationship Specialty Start Date End Date Frederick Meade MD [address] [place] [address] [address] [place] [address] PCP - General Family Medicine 11/29/17 documented as of this encounter
--- OUTSIDE RECORDS SUMMARY | 2023-11-16 06:29 | XMS_ITS | Encounter Summary ---
Author Organization [facility] [place] [address] Care Team Providers Care Copra Sampler Name Role Phone Frederick Meade MD Primary Care Provider +1 [phone] Encounter Details Date Type Department Care Team (Late st Contact Info) Description 09/20/2023 Orders Only Hematology [place] [address] Micha Givens Jr., MD [facility] DR [place] [address] Diffuse large B-cell lymphoma of lymph nodes [...] AM EDT Office Visit Hematology/Oncology at [address] [address] Adrianne Ramon MD [facility] DR [place] [address] Yael Merlos, SITE TECHNICIAN [facility] DR [place] [address] 11/21/2023 10:00 AM EDT Infusion Hematology Oncology at [address] [address] 11/23/2023 11:00 AM EDT Office Visit Hematology [place] [address] Reynold Proctor MD [facility] [place] [address] 11/23/2023 1:00 PM EDT Appointment Hematology [place] [address] 11/23/2023 2:00 PM EDT Office Visit Hematology [place] [address] Micha Givens Jr., MD [facility] DR [place] [address] 11/23/2023 3:30 PM EDT Hospital [place] [address] Micha Givens Jr., MD [facility] DR [place] [address] documented as of this encounter Results * (ABNORMAL) Lactate Dehydrogenase (09/21/2023 11:14 AM EDT) [facility] Lactate Dehydrogenase 426(H) 110 - 220 unit/L [facility] Blood 09/21/2023 11:1 4 AM EDT 09/21/2023 11:30 AM EDT Narrative Resulting Agency Comment Spec In Lab Micha Givens Jr., MD CHEMISTRY ORDERABLES [facility] [place] [address] * (ABNORMAL) Comprehensive metabolic panel (non-fasting) (09/21/2023 11:14 AM EDT) [facility] Glucose 326(H) 65 - 199 mg/dL [facility] [...] MD CHEMISTRY ORDERABLES [facility] [place] [address] documented in this encounter Visit Diagnoses Diagnosis Diffuse large B-cell lymphoma of lymph nodes of multiple regions documented in this encounter Care Teams Copra Sampler Relationship Specialty Start Date End Date Frederick Meade MD [address] [place] [address] PCP - General Family Medicine 11/29/17 documented as of this encounter
--- OUTSIDE RECORDS SUMMARY | 2023-11-16 06:29 | XMS_ITS | Encounter Summary ---
[place] [address] Care Team Providers Care Travel Rn Or Name Role Phone Frederick Meade MD Primary Care Provider +1 -[phone] Reason for Referral * Diagnostic Test (Routine) - Authorized Specialty Diagnoses / Procedures Referred By Contac t Referred To Contact Radiology Diagnoses Diffuse large B-cell lymphoma of lymph nodes of multiple regions Procedures CT Neck Soft Tissue w Contrast (Generic) Yael Merlos SOFTWARE DEVELOPMENT PROJECT MANAGER [facility] [address] [place] [address] Referral ID Status Reason Start Date Expiration Date Visits Requested Visits Authorized [id number] Authorized Specialty Service Requested 06/13/2023 12/12/2024 1 1 * Diagnostic Test (Routine) - Authorized Specialty Diagnoses / Procedures Referred By Contac t Referred To Contact Radiology Diagnoses Diffuse large B-cell lymphoma of lymph nodes of multiple regions Procedures CT Chest Abdomen Pelvis w Contrast (Generic) Yael Merlos APRN [facility] [address] [place] [address] Referral ID Status Reason Start Date Expiration Date Visits Requested Visits Authorized [id number] Authorized Specialty Service Requested 06/13/2023 12/12/2024 1 1 Reason for Visit * Reason Comments Follow-up Encounter Details Date Type Department Care Team (Late st Contact Info) Description 06/13/2023 11:00 AM EDT Office Visit Hematology/Oncology at [address] [address] Adrianne Ramon MD [facility] [address] [place] [address] Yael Merlos APRN [facility] [place] [address] Diffuse large B-cell lymphoma of lymph nodes [...] this encounter Progress Notes * Yael Merlos, SOFTWARE DEVELOPMENT PROJECT MANAGER - 06/13/2023 11:00 AM EDT Hematology Clinic [facility] [place] [address] HEMATOLOGY PATIENT EVALUATION PROBLEM LIST: Patient Active [...] to consultation, he saw [facility] and when to [facility]. No beds so sent to Critical [...] with nice response. Pathology from [facility] reports large B-cell lymphoma. Double expresser. FISH for translocations are pending. Tongue swelling. No wt loss. Eating and drinking OK. No fevers, infections, No NS. Pain in neck. Prednisone 60mg daily X 7 days. I feel great on prednisone last day of prednisone is today. Took iron supplements per PCP - unclear cause. - last COLO at [facility] was 01/17/2012. INTERIM HISTORY OF PRESENT [...] using his bike. They are opening their hamilton again inviting in close friends and family and beginning to extends back out in their social hamilton which is quite reasonable at this point. No new health-related concerns. 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 6 mos of adjuvant Lupron. Total dose 79.2 Gy completed 01/26/15 09/29/22 Large B Cell lymphoma - biopsy of tongue and needle of cervical LN. FISH from [facility] No MYCrearrangement and no fusion of MYC [...] only 1 biologic. Son Cheo Freire. Enjoys [employer], movies, race car, Dr. TATTOFF. [employer]. 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 Not a . ETOH: 1-3 beers per week Smoking: Quit 1985. Approximately 34-azer-kntq history Vaping or electronic cigarettes: denies Chewing [...] delightful 73-year old male in [facility]. He is accompanied to the clinic by [...] and BCL-2 protein (Double Expressor.) Flow cytometry ([id number]) supports this interpretation. FISH from [facility] No MYC rearrangement and no fusion of MYC and IGH was observed, CD3 (SP7, [employer]) Background T-cells CD20 (L26, [place]) diffusely positive in Neoplastic B-cells PAX-5 (1EW, [employer]) diffusely positive in Neoplastic B-cells CD10 (SP67, [place]) Negative BCL-6 (G/191E/A8, [place]) Positive MUM-1 (MUM1p, [employer]) Positive Myc (Y69, [employer]) Positive BCL-2 Oncoprotein (124, [place]) Positive Ki67 (MIB-1) (K2, [employer]) Greater than 95% of cells in cycle Cyclin D1(SP4-R, [place]) Negative SAPPHIRE JOSE ([id number], [employer]) Negative. DIAGNOSTICS: 01/25/23 ECHO after C#5 [...] undergo investigation with ultrasound. CT CAP at [facility], report and images have been requested. [...] LVEF at 50-55%. --asymptomatic --repeat echo at [facility] 1 year post completion of therapy [...] and counseling as appropriate. Yael Merlos, MSN, SOFTWARE DEVELOPMENT PROJECT MANAGER Nurse Practitioner Section of Hematology Copy Frederick Meade MD documented in this encounter Plan of Treatment Upcoming Encounters Date Type Department Care Team (Late st Contact Info) Description 11/21/2023 9:30 AM EDT Office Visit Hematology/Oncology at [address] [address] Adrianne Ramon MD [facility] [place] [address] Yael Merlos APRN [facility] [place] [address] 11/21/2023 10:00 AM EDT Infusion Hematology Oncology at [address] [address] 11/23/2023 11:00 AM EDT Office Visit Hematology [place] [address] Reynold Proctor MD [facility] [place] [address] 11/23/2023 1:00 PM EDT Appointment Hematology [place] [address] 11/23/2023 2:00 PM EDT Office Visit Hematology [place] [address] Micha Givens Jr., MD [facility] [place] [address] 11/23/2023 3:30 PM EDT [place] [address] Micha Givens Jr., MD [facility] [address] [place] [address] Scheduled Orders Name Type Priority Associated Diagnoses [...] 4.20(L) Hemoglobin 12.6(L) Hematocrit 38.1(L) Platelet 221 Neutrophil Absolute (ANC) - Automated 4.45 Blood 06/13/2023 Historical Provider HEMATOLOGY ORDERA [...] type documented in this encounter Care Teams Travel Rn Or Relationship Specialty Start Date End Date Frederick Meade MD [address] [place] [address] PCP - General Family Medicine 11/29/17 documented as of this encounter
--- OUTSIDE RECORDS SUMMARY | 2023-11-16 06:29 | XMS_ITS | Encounter Summary ---
Author Organization [facility] Address [facility] [address] Care Team Providers Care Tattoo Identifier Name Role Phone Frederick Meade MD Primary Care Provider [phone] [phone] Reason for Visit * Reason Comments Chemotherapy * Treatment/Therapy Plan Authorization (Routine) - Closed Specialty Diagnoses / Procedures Referred By Contac t Referred To Contact Hematology and Oncology Diagnoses Diffuse large B-cell lymphoma of lymph nodes of multiple regions Adrianne Ramon MD [facility] DR [place] [address] Stj Hem Onc Infusion [address] [place] [address] Referral ID Status Reason Start Date Expiration Date Visits Re quested Visits Authorized [id number] Closed 09/12/2023 09/11/2024 99 99 Encounter Details Date Type Department Care Team (Late st Contact Info) Description 09/19/2023 8:00 AM EDT Infusion Hematology Oncology at [address] [address] Diffuse large B-cell lymphoma of [...] treatment. OBJECTIVE LAB DATA: completed today at [facility] Pre administration: Chemotherapy orders [...] AM EDT Office Visit Hematology/Oncology at [address] [address] Adrianne Ramon MD [facility] DR [place] [address] Yael Merlos APRN [facility] [place] [address] 11/21/2023 10:00 AM EDT Infusion Hematology Oncology at [address] [address] 11/23/2023 11:00 AM EDT Office Visit Hematology [place] [address] Reynold Proctor MD [facility] [place] [address] 11/23/2023 1:00 PM EDT Appointment Hematology [place] [address] 11/23/2023 2:00 PM EDT Office Visit Hematology [place] [address] Micha Givens Jr., MD [facility] DR [place] [address] 11/23/2023 3:30 PM EDT Hospital [place] [address] Micha Givens Jr., MD [facility] DR [place] [address] documented as of this encounter Visit Diagnoses [...] mL/hr documented in this encounter Care Teams Tattoo Identifier Relationship Specialty Start Date End Date Frederick Meade MD [address] [place] [address] PCP - General Family Medicine 11/29/17 documented as of this encounter
--- OUTSIDE RECORDS SUMMARY | 2023-11-16 06:29 | XMS_ITS | Encounter Summary ---
Author Organization [facility] Address [facility] [place] [address] Care Team Providers Care Stars Coordinator Name Role Phone Frederick Meade MD Primary Care Provider +1 -[phone] Encounter Details Date Type Department Care Team (Late st Contact Info) Description 09/19/2023 Orders Only Hematology [place] [address] Adrianne Ramon MD [facility] DR [place] [address] Social History Tobacco Use Types Packs/Day Years [...] AM EDT Office Visit Hematology/Oncology at [address] [address] Adrianne Ramon MD [facility] [place] [address] Yael Merlos APRN [facility] [place] [address] 11/21/2023 10:00 AM EDT Infusion Hematology Oncology at [address] [address] 11/23/2023 11:00 AM EDT Office Visit Hematology [place] [address] Reynold Proctor MD [facility] [place] [address] 11/23/2023 1:00 PM EDT Appointment Hematology and Oncology at [place] [phone] 11/23/2023 2:00 PM EDT Office Visit Hematology and Oncology at [place] [phone] Micha Givens Jr., MD [facility] DR [place] [address] 11/23/2023 3:30 PM EDT Hospital Encounter MRI at [place] [phone] Micha Givens Jr., MD [facility] DR [place] [address] documented as of this encounter Visit Diagnoses Not on filedocumented in this encounter Care Teams Stars Coordinator Relationship Specialty Start Date End Date Frederick Meade MD [address] [facility] [address] [place] [address] PCP - General Family Medicine 11/29/17 documented as of this encounter
--- OUTSIDE RECORDS SUMMARY | 2023-11-16 06:29 | XMS_ITS | Encounter Summary ---
Author Organization [place] [address] Care Team Providers Care Credit Rating Inspector Name Role Phone Frederick Meade MD Primary Care Provider +1 -[phone] Encounter Details Date Type Department Care Team (Latest Contact Info) Description 09/06/2023 9:48 AM EDT - 09/06/2023 10:14 AM EDT Hospital Encounter Hematology [place] [address] Diffuse large B-cell lymphoma of lymph nodes [...] AM EDT Office Visit Hematology/Oncology at [address] [address] Adrianne Ramon MD [facility] HEMATOLOGY [place] [address] Yael Merlos APRN [facility] DR HEMATOLOGY [place] [address] 11/21/2023 10:00 AM EDT Infusion Hematology Oncology at [address] [phone] 11/23/2023 11:00 AM EDT Office Visit Hematology [place] [phone] Reynold Proctor MD [facility] [place] [address] 11/23/2023 1:00 PM EDT Appointment Hematology [place] [phone] 11/23/2023 2:00 PM EDT Office Visit Hematology [place] [address] Micha Givens Jr., MD [facility] HEMATOLOGY [place] [address] 11/23/2023 3:30 PM EDT Hospital Encounter MRI at [place] [phone] Micha Givens Jr., MD [facility] HEMATOLOGY [place] [address] documented as of this encounter Procedures Procedure [...] 10:12 AM EDT) Neutrophil % 64.9 % [facility] Neutrophil Absolute 4.20 1.70 - 6.10 x10(3)/mc L [facility] Lymph % 14.1 % [facility] Lymphocytes Abs 0.9 0.9 - 3.2 x10(3)/mc L [facility] Monocyte % 16.7 % [facility] Monocyte Abs 1.1(H) 0.3 - 0.9 x10(3)/mc L [facility] Eos % 3.7 % [facility] Eosinophils Abs 0.2 0.0 - 0.4 x10(3)/mc L [facility] Basophil % 0.3 % [facility] Baso Absolute 0.0 0.0 - 0.1 x10(3)/mc L [facility] Immature Gran % 0.30 % WHITE [...] Absolute 0.02 0.00 - 0.04 x10(3)/ L [facility] Blood 09/06/2023 10:1 2 AM EDT 09/06/2023 10:16 AM EDT Narrative Resulting Agency Comment Spec In Lab Adrianne Ramon MD HEMATOLOGY ORDER DUONG [facility] [place] [address] * (ABNORMAL) Hemogram (09/06/2023 10:12 AM EDT) White Blood Cell 6.5 4.0 - 9.5 x10(3)/[facility] Red Blood Cell 3.98(L) 4.58 - 5.54 x10(6)/[facility] Hemoglobin 12.0(L) 13.7 - 16.5 g/dL [facility] Hematocrit 36.5(L) 40.5 - 48.5 % [facility] Mean Cell Volume 91.7 82.9 - 93.1 [facility] Mean Cell Hemoglobin 30.2 27.5 - 32.1 pg [facility] Mean Cell Hemoglobin Concentration 32.9 32.0 - 35.7 g/dL [facility] Platelet 145 145 - 357 x10(3)/[facility] RDW Standard Deviation 48.4(H) 36.0 - 45.0 [facility] RDW coefficient of variation 14.4(H) 11.4 - 13.8 % [facility] Mean Platelet Volume 10.3 7.6 - 12.9 [facility] NRBC% auto 0.0 % [facility] NRBC Absolute 0.000 0.000 - 0.000 x10(3)/ L [facility] Blood 09/06/2023 10:1 2 AM EDT 09/06/2023 10:16 AM EDT Narrative Resulting Agency Comment Spec In Lab Adrianne Ramon MD HEMATOLOGY ORDER DUONG Performing Organization Address City/[facility]/ZIP Co de Phone Number [facility] [place] [address] * (ABNORMAL) Lactate Dehydrogenase (09/06/2023 10:12 AM EDT) Lactate Dehydrogenase 251(H) 110 - 220 unit/L [facility] Blood 09/06/2023 10:1 2 AM EDT 09/06/2023 10:16 AM EDT Narrative Resulting Agency Comment Spec In Lab Adrianne Ramon MD CHEMISTRY ORDERA BLES Performing Organization Address [facility] Co de Phone Number [facility] [place] [address] * (ABNORMAL) Comprehensive metabolic panel (non-fasting) (09/06/2023 10:12 AM EDT) Glucose 170 65 - 199 mg/dL [facility] Comment:Diabetes: >=200 mg/d L plus symptoms Blood Urea Nitrogen 15 10 - 20 mg/dL [facility] [...] [facility] Carbon Dioxide 25 22 - 31 mmol/L [facility] Anion Gap 11 5 - 15 mmol/L [facility] Calcium 9.2 8.5 - 10.5 mg/dL [facility] Protein, Total 6.1 6.1 - 8.0 g/dL [facility] Albumin 3.7 3.2 - 5.2 g/dL [facility] Aspartate Aminotransferase 37 0 - 39 unit/L [facility] Alanine Aminotransferase 61(H) 0 - 55 unit/L [facility] Alkaline Phosphatase 151(H) 40 - 130 unit/L [facility] Bilirubin, Total 0.3 0.2 - 1.3 mg/dL [facility] Est Glomerular Filtration Rate 72 >=60 mL/min/1. 73 m?? [place] [...] MD CHEMISTRY ORDERA BLES Performing Organization Address City/[facility]/ZIP Co de Phone Number [facility] [place] [address] * Blood culture (09/06/2023 10:12 AM EDT) Blood Culture No growth at 5 days. [facility] Blood ANTECUBITAL REGION STRUCTURE / Unknown 09/06/2023 10:12 AM EDT 09/06/2023 10:31 AM EDT Comment:Peripheral culture Narrative Resulting Agency Comment Spec In Lab Adrianne Ramon MD MICROBIOLOGY - B LOOD ORDERABLES [facility] [place] [address] documented in this encounter Visit Diagnoses Diagnosis Diffuse large B-cell lymphoma of lymph nodes of multiple regions Skin nodule Localized superficial swelling, mass, or lump documented in this encounter Care Teams Credit Rating Inspector Relationship Specialty Start Date End Date Frederick Meade MD [address] [place] [address] PCP - General Family Medicine 11/29/17 documented as of this encounter
--- OUTSIDE RECORDS SUMMARY | 2023-11-16 06:30 | XMS_ITS | Encounter Summary ---
Author Organization [facility] [place] [address] Care Team Providers Care Technical Agronomist Name Role Phone Frederick Meade MD Primary Care Provider +1 -[phone] Reason for Visit * Reason Comments Follow-up Encounter Details Date Type Department Care Team (Late st Contact Info) Description 11/22/2022 11:30 AM EDT Office Visit Hematology/Oncology at [address] [address] [facility] DR [place]EMATOLOGY [place] [address] Yael Merlos, MILL HAND [facility] DR [place]EM[place] [address] Diffuse large B-cell lymphoma of lymph nodes [...] - 11/22/2022 11:30 AM EDT Hematology Clinic [facility] [place] [address] HEMATOLOGY PATIENT EVALUATION Patient Active Problem List [...] [facility] and when to [facility]. No beds so sent to [...] - unclear cause. - last COLO at [facility] was 01/17/2012. INTERIM HISTORY OF [...] been trying to work through the career development counselor trying to obtain a supply to complete [...] and needle of cervical LN. FISH from [place] No MYCrearrangement and no fusion of MYC [...] only 1 biologic. Son Cheo Freire. Enjoys [employer], [employer], [employer], [employer]. [employer]. 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 Not a . ETOH: 1-3 beers per week Smoking: Quit 1985. Approximately 80-lojx-gppe history Vaping or electronic cigarettes: denies Chewing [...] and BCL-2 protein (Double Expressor.) Flow cytometry ([id number]) supports this interpretation. FISH from [place] No MYC rearrangement and no fusion of MYC and IGH was observed, CD3 (SP7, Thermo Scientific) Background T-cells CD20 (L26, [place]) diffusely positive in Neoplastic B-cells PAX-5 (1EW, Leica) diffusely positive in Neoplastic B-cells CD10 (SP67, [place]) Negative BCL-6 (G/191E/A8, [place]) Positive MUM-1 (MUM1p, Dako) Positive Myc (Y69, Abcam) Positive BCL-2 Oncoprotein (124, [place]) Positive Ki67 (MIB-1) (K2, Leica) Greater than 95% of cells in cycle Cyclin D1(SP4-R, [place]) Negative SAPPHIRE JOSE ([id number], Leica) Negative. DIAGNOSTICS: 11/06/22 ECHO after C#1 [...] undergo investigation with ultrasound. CT CAP at [facility], report and images have been requested. [...] 2 tabs per day. 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 No COLO in last 10 [...] and counseling as appropriate. Yael Merlos, MSN, MILL HAND Nurse practitioner Section of Hematology/Oncology Copy Frederick Meade MD documented in this encounter Plan of Treatment Upcoming Encounters Date Type Department Care Team (Late st Contact Info) Description 11/21/2023 9:30 AM EDT Office Visit Hematology/Oncology at [address] [address] [facility] DR HEMATOLOGY [place] [address] [facility] [address] [place] [address] 11/21/2023 10:00 AM EDT Infusion Hematology Oncology at [address] [phone] 11/23/2023 11:00 AM EDT Office Visit [place]ology [place] [phone] [facility] [place] [address] 11/23/2023 1:00 PM EDT Appointment Hematology [place] [address] 11/23/2023 2:00 PM EDT Office Visit [place]ematology [place] [phone] Micha Givens Jr., MD [facility] HEMATOLOGY [place] [address] 11/23/2023 3:30 PM EDT [place] [address] Micha Givens Jr., MD [facility] DR HEMATOLOG[place] [address] documented as of this encounter Procedures Procedure Name Priority Date/Time Associated Diagnosis Comments CBC (WITH DIFF) Routine 11/22/2022 COMPREHENSIVE METABOLIC PANEL Routine 11/22/2022 documented in this encounter Results * (ABNORMAL) CBC (with Diff) (11/22/2022) White Blood Cell 15.41(H) Red Blood Cell 2.90(L) Hemoglobin 8.8(L) Hematocrit 27.0(L) Platelet 220 Neutrophil Absolute (ANC) - Automated 12.94(H) Blood 11/22/2022 Historical Provider HEMATOLOGY ORDERA [...] lung documented in this encounter Care Teams Technical Agronomist Relationship Specialty Start Date End Date Frederick Meade MD [address] [place] [address] PCP - General Family Medicine 11/29/17 documented as of this encounter
--- OUTSIDE RECORDS SUMMARY | 2023-11-16 06:30 | XMS_ITS | Encounter Summary ---
Author Organization [facility] [place] [address] Care Team Providers Care Quality Control Engineer Name Role Phone Frederick Meade MD Primary Care Provider +1 -[phone] Encounter Details Date Type Department Care Team [...] AM EDT Office Visit Hematology/Oncology at [address] [address] Adrianne Ramon MD [facility] DR HEMATOLOGY [place] [address] Yael Merlos APRN [facility] [address] HEMATOLOGY [place] [address] 11/21/2023 10:00 AM EDT Infusion Hematology Oncology at [address] [address] 11/23/2023 11:00 AM EDT Office Visit [place]ematology [place] [phone] Reynold Proctor MD [facility] [place] [address] 11/23/2023 1:00 PM EDT Appointment Hematology [place] [phone] 11/23/2023 2:00 PM EDT Office Visit Hematology [place] [phone] Micha Givens Jr., MD [facility] HEMATOLOGY [place] [address] 11/23/2023 3:30 PM EDT [place] [address] Micha Givens Jr., MD [facility] DR HEMATOLOGY [place] [address] documented as of this encounter Visit Diagnoses Not on filedocumented in this encounter Care Teams Quality Control Engineer Relationship Specialty Start Date End Date Frederick Meade MD [address] [place] [address] [address] [place] [address] PCP - General Family Medicine 11/29/17 documented as of this encounter
--- OUTSIDE RECORDS SUMMARY | 2023-11-16 06:30 | XMS_ITS | Encounter Summary ---
Author Organization [facility] Address [facility] [place] [address] Care Team Providers Care Pig Farmer Name Role Phone Frederick Meade MD Primary Care Provider +1 -[phone] Encounter Details Date Type Department Care Team (Late st Contact Info) Description 11/29/2022 Notes Only Hematology/Oncology at [address] [address] Shelley Cason, [facility] OFFICE OF CARE MANAGEMENT [...] the team is looking at more affordableoptions. DRY SAND MOLDER does not have a solution to the cost but offered information about the [facility] which if approved would send a monthly [...] AM EDT Office Visit Hematology/Oncology at [address] [address] Adrianne Ramon MD [facility] [place] [address] Yael Merlos, END FINDER FORMING DEPARTMENT [facility] [place] [address] 11/21/2023 10:00 AM EDT Infusion Hematology Oncology at [address] [address] 11/23/2023 11:00 AM EDT Office Visit Hematology and Oncology at [place] [phone] Reynold Proctor MD [facility] [place] [address] 11/23/2023 1:00 PM EDT Appointment Hematology [place] [address] 11/23/2023 2:00 PM EDT Office Visit Hematology and Oncology at [place] [phone] Micha Givens Jr., MD [facility] DR [place]AT[place] [address] 11/23/2023 3:30 PM EDT Hospital Encounter MRI at [place] [phone] Micha Givens Jr., MD [facility] DR [place]EMATOLOG[place] [address] documented as of this encounter Visit Diagnoses Not on filedocumented in this encounter Care Teams Pig Farmer Relationship Specialty Start Date End Date Frederick Meade MD [address] [place] [address] [address] [place] [address] PCP - General Family Medicine 11/29/17 documented as of this encounter
--- OUTSIDE RECORDS SUMMARY | 2023-11-16 06:30 | XMS_ITS | Encounter Summary ---
Author Organization [facility] [place] [address] Care Team Providers Care Chief Power Dispatcher Name Role Phone Frederick Meade MD Primary Care Provider +1 -[phone] Encounter Details Date Type Department Care Team [...] AM EDT Office Visit Hematology/Oncology at [address] [address] Adrianne Ramon MD [facility] DR HEMATOLOGY [place] [address] Yael Merlos APRN [facility] DR HEMATOLOGY [place] [address] 11/21/2023 10:00 AM EDT Infusion Hematology Oncology at [address] [address] 11/23/2023 11:00 AM EDT Office Visit Hematology [place] [phone] Reynold Proctor MD [facility] [place] [address] 11/23/2023 1:00 PM EDT Appointment Hematology [place] [phone] 11/23/2023 2:00 PM EDT Office Visit Hematology [place] [address] Micha Givens Jr., MD [facility] HEMATOLOGY [place] [address] 11/23/2023 3:30 PM EDT Hospital Encounter [place] [address] Micha Givens Jr., MD [facility] DR HEMATOLOGY [place] [address] documented as of this encounter Visit Diagnoses Not on filedocumented in this encounter Care Teams Chief Power Dispatcher Relationship Specialty Start Date End Date Frederick Meade MD [address] [place] [address] [address] [place] [address] PCP - General Family Medicine 11/29/17 documented as of this encounter
--- OUTSIDE RECORDS SUMMARY | 2023-11-16 06:30 | XMS_ITS | Encounter Summary ---
Author Organization [facility] Address [facility] [place] [address] Care Team Providers Care Glove Stitcher Name Role Phone Frederick Meade MD Primary Care Provider +1 -[phone] Encounter Details Date Type Department Care Team (Late st Contact Info) Description 03/14/2023 11:30 AM EST Office Visit Hematology/Oncology at [address] [address] Adrianne Ramon MD [facility] DR HEMATOLOGY [place] [address] Yael Merlos APRN [facility] DR HEMATOLOGY [place] [address] Diffuse large B-cell lymphoma of lymph nodes [...] - 03/14/2023 11:30 AM EST Hematology Clinic [facility] [place] [address] HEMATOLOGY PATIENT EVALUATION PROBLEM LIST: Patient Active [...] Care in [facility] and when to [facility]. No beds so sent to [facility] for [address] [...] - unclear cause. - last COLO at [facility] was 01/17/2012. INTERIM HISTORY OF PRESENT ILLNESS: [...] and needle of cervical LN. FISH from [place] No MYCrearrangement and no fusion of MYC [...] only 1 biologic. Son Cheo Freire. Enjoys [employer] [place], movies, race car, cards. [employer]. 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 Not a . ETOH: 1-3 beers per week Smoking: Quit 1985. Approximately 43-fmrz-xjqa history Vaping or electronic cigarettes: denies Chewing [...] is a delightful 72-year old male in [facility]. He is accompanied to [...] and BCL-2 protein (Double Expressor.) Flow cytometry ([id number]) supports this interpretation. FISH from [place] No MYC rearrangement and no fusion of MYC and IGH was observed, CD3 (SP7, Thermo Scientific) Background T-cells CD20 (L26, [place]) diffusely positive in Neoplastic B-cells PAX-5 (1EW, Leica) diffusely positive in Neoplastic B-cells CD10 (SP67, [place]) Negative BCL-6 (G/191E/A8, [place]) Positive MUM-1 (MUM1p, Dako) Positive Myc (Y69, [employer]cam) Positive BCL-2 Oncoprotein (124, [place]) Positive Ki67 (MIB-1) (K2, Leica) Greater than 95% of cells in cycle Cyclin D1(SP4-R, [place]) Negative SAPPHIRE JOSE ([id number], Leica) Negative. DIAGNOSTICS: 01/25/23 ECHO after C#5 [...] LVEF at 50-55%. --asymptomatic --repeat echo at [facility] 1 year post completion of therapy Suspected [...] to Feb 2028. Send PET images to [facility] for future comparison w/ surveillance CT scans. [...] AM EDT Office Visit Hematology/Oncology at [address] [address] Adrianne Ramon MD [facility] HEMATOLOGY [place] [address] Yael Merlos APRN [facility] HEMATOLOGY [place] [address] 11/21/2023 10:00 AM EDT Infusion Hematology Oncology at [address] [address] 11/23/2023 11:00 AM EDT Office Visit Hematology [place] [address] Reynold Proctor MD [facility] [place] [place] [address] 11/23/2023 1:00 PM EDT Appointment Hematology [place] [address] 11/23/2023 2:00 PM EDT Office Visit Hematology [place] [address] Micha Givens Jr., MD [facility] DR HEMATOLOGY [place] [address] 11/23/2023 3:30 PM EDT Hospital [place] [address] Micha Givens Jr., MD [facility] DR HEMATOLOGY [place] [address] documented as of this encounter Visit Diagnoses Diagnosis Diffuse large B-cell lymphoma of lymph nodes of multiple regions Iron deficiency anemia, unspecified iron deficiency anemia type documented in this encounter Care Teams Glove Stitcher Relationship Specialty Start Date End Date Frederick Meade MD [address] [facility] [address] [place] [address] PCP - General Family Medicine 11/29/17 documented as of this encounter
--- OUTSIDE RECORDS SUMMARY | 2023-11-16 06:30 | XMS_ITS | Encounter Summary ---
[place] [address] Care Team Providers Care [employer] History Teacher Name Role Phone Frederick Meade MD Primary Care Provider [phone] [phone] Reason for Referral * Diagnostic Test (Routine) - Closed Specialty Diagnoses / Procedures Referred By Contac t Referred To Contact Radiology Diagnoses Diffuse large B-cell lymphoma of lymph nodes of multiple regions Procedures NM PET CT Skull Base to Mid-thigh Yael Merlos APRN [facility] [place] [address] [place] [address] Referral ID Status Reason Start Date Expiration Date V isits Requested Visits Authorized [id number] Closed Specialty Service Requested 01/15/2023 07/15/2024 1 1 Encounter Details Date Type Department Care Team (Late st Contact Info) Description 01/15/2023 Orders Only Hematology [place] [address] Yael Merlos APRN [facility] [place] [address] Diffuse large B-cell lymphoma of [...] AM EDT Office Visit Hematology/Oncology at [address] [address] Adrianne Ramon MD [facility] HEMATOLOGY [place] [address] Yael Merlos, TECHNOLOGY ADMINISTRATOR [facility] [place] [address] 11/21/2023 10:00 AM EDT Infusion Hematology Oncology at [address] [address] 11/23/2023 11:00 AM EDT Office Visit Hematology [place] [phone] Reynold Proctor MD [facility] [place] [address] 11/23/2023 1:00 PM EDT Appointment Hematology [place] [address] 11/23/2023 2:00 PM EDT Office Visit Hematology and Oncology at [place] [phone] Micha Givens Jr., MD [facility] DR HEMATOLOGY [place] [address] 11/23/2023 3:30 PM EDT Hospital Encounter MRI at [place] [phone] Micha Givens Jr., MD [facility] [address] [place] [address] documented as of this encounter Results * [...] questions please contact the health resident care coordinator that requested your imaging first. ? Electronically signed by: Tracey Flood MD, [facility] ??([phone]), at 03/08/2023 11:33 AM Narrative 03/08/2023 11:33 AM EST EXAMINATION: NM PET CT STANDARD SKULL BASE TO MID-THIGH CLINICAL HISTORY: Hematologic malignancy, assess treatment response History of diffuse large B-cell lymphoma, status post 6 cycles of RCHOP. TECHNIQUE: Following IV injection of 88-qmrqnd-8-deoxyglucose (FDG) a standard uptake of approximately 60 [...] of RCHOP. TECHNIQUE: Following IV injection of 86-qsfmjw-6-deoxyglucose (FDG) astandard uptake of approximately 60 minutes, [...] have questions please contactthe health resident care coordinator that requested your imaging first. Electronically signed by: Tracey Flood MD, 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
--- OUTSIDE RECORDS SUMMARY | 2023-11-16 06:30 | XMS_ITS | Encounter Summary ---
Author Organization [facility] [place] [address] Care Team Providers Care Pre Owned Sales Consultant Name Role Phone Frederick Meade MD Primary Care Provider [phone] Encounter Details Date Type Department Care Team (Latest Contact Info) Description 03/06/2023 7:23 AM EST - 03/06/2023 7:51 AM EST Hospital Encounter Hematology [place] [address] Non-Hodgkin lymphoma of lymph nodes of multiple [...] TEST DAILY 4 03/11/2018 ONETOUCH ULTRASOFT LANCETS [facility] USE TO TEST DAILY 2 06/07/2018 colchicine [...] Take 1 tablet by mouth daily. 10/17/2023 acyclovir (Zovirax) 400 mg tablet Take 1 tablet by mouth 2 times daily. 60 tablet 5 10/17/2022 03/14/2023 predniSONE (Deltasone) 50 mg tablet Take 2 tablets by mouth daily. Days 2-5 of each chemo cycle 8 tablet 5 10/17/2022 03/14/2023 documented as of this encounter Progress Notes * Alicia Duke, RN - 03/06/2023 7:51 AM EST Patient Name: Cheo Freire Patient Age: 72 y.o. Birthdate: 1950 Admit date: 03/06/2023 Attending Physician: Lauren att. providers found Access visit. See MAR and/or flowsheet. documented in this encounter Plan of Treatment Upcoming Encounters Date Type Department Care Team (Late st Contact Info) Description 11/21/2023 9:30 AM EDT Office Visit Hematology/Oncology at [address] [phone] Adrianne Ramon MD [facility] DR HEMATOLOGY [place] [address] Yael Merlos APRN [facility] DR HEMATOLOGY [place] [address] 11/21/2023 10:00 AM EDT Infusion Hematology Oncology at [address] [phone] 11/23/2023 11:00 AM EDT Office Visit Hematology [place] [phone] Reynold Proctor MD [facility] [place] [address] 11/23/2023 1:00 PM EDT Appointment Hematology [place] [address] 11/23/2023 2:00 PM EDT Office Visit Hematology [place] [address] Micha Givens Jr., MD [facility] DR HEMATOLOGY [place] [address] 11/23/2023 3:30 PM EDT Hospital [place] [address] Micha Givens Jr., MD [facility] DR HEMATOLOGY [place] [address] Scheduled Orders Name Type Priority Associated Diagnoses [...] 7:45 AM EST) Neutrophil % 56.0 % [facility] Neutrophil Absolute 3.23 1.70 - 6.10 x10(3)/mc L [facility] Lymph % 12.1 % [facility] Lymphocytes Abs 0.7(L) 0.9 - 3.2 x10(3)/mc L [facility] Monocyte % 20.5 % [facility] Monocyte Abs 1.2(H) 0.3 - 0.9 x10(3)/ L [facility] Eos % 10.2 % [facility] Eosinophils Abs 0.6(H) 0.0 - 0.4 x10(3)/[facility] LAB[facility] Basophil % 1.0 % [facility] Baso Absolute 0.1 0.0 - 0.1 x10(3)/[facility] Immature Gran % 0.20 % [facility] Comment: Immature granulocytes(IG's)percentage and absolute count will include metamyelocytes, myelocytes, and promyelocytes. Blood smears from CBCs yielding IG's will be scanned manually for concordance. If this scan disagrees with the automated IG or if promyelocytes are noted, a manual differential will be performed. Immature Gran Absolute 0.01 0.00 - 0.04 x10(3)/[facility] Blood 03/06/2023 7:45 AM EST 03/06/2023 8:00 AM EST Narrative Resulting Agency Comment Spec In Lab Adrianne Ramon MD HEMATOLOGY ORDER DUONG [facility] [place] [address] * (ABNORMAL) Hemogram (03/06/2023 7:45 AM EST) White Blood Cell 5.8 4.0 - 9.5 x10(3)/[facility] Red Blood Cell 3.67(L) 4.58 - 5.54 x10(6)/[facility] Hemoglobin 11.3(L) 13.7 - 16.5 g/dL [facility] Hematocrit 34.5(L) 40.5 - 48.5 % [facility] Mean Cell Volume 94.0(H) 82.9 - 93.1 fL [facility] Mean Cell Hemoglobin 30.8 27.5 - 32.1 pg [facility] Mean Cell Hemoglobin Concentration 32.8 32.0 - 35.7 g/dL [facility] Platelet 211 145 - 357 x10(3)/mc L [facility] RDW Standard Deviation 54.8(H) 36.0 - 45.0 fL [facility] RDW coefficient of variation 15.9(H) 11.4 - 13.8 % [facility] Mean Platelet Volume 10.2 7.6 - 12.9 fL [facility] NRBC% auto 0.0 % [facility] ITAL [facility] NRBC Absolute 0.000 0.000 - 0.000 x10(3)/mc L [facility] Blood 03/06/2023 7:45 AM EST 03/06/2023 8:00 AM EST Narrative Resulting Agency Comment Spec In Lab Adrianne Ramon MD HEMATOLOGY ORDER DUONG [facility] [place] [address] * (ABNORMAL) Comprehensive metabolic panel (non-fasting) (03/06/2023 7:45 AM EST) Glucose 133 65 - 199 mg/dL [facility] Comment:Diabetes: >=200 mg/d L plus symptoms Blood Urea Nitrogen 12 10 - 20 mg/dL [facility] Creatinine 0.94 0.80 - 1.50 mg/dL [facility] Sodium 143 135 - 145 mmol/L [facility] Potassium 3.7 3.5 - 5.0 mmol/L [facility] Comment: Please note: ??Patients with WBC >100,000 may have falsely elevated Potassium levels. ??For accurate Potassium quantification in these patients send serum separator tube (gold top) for subsequent determinations. ??Contact the Clinical Chemistry Laboratory if there are any questions. Chloride 108(H) 98 - 107 mmol/L [facility] Carbon Dioxide 23 22 - 31 mmol/L [facility] Anion Gap 12 5 - 15 mmol/L [facility] Calcium 9.6 8.5 - 10.5 mg/dL [facility] Protein, Total 6.4 6.1 - 8.0 g/dL [facility] Albumin 4.1 3.2 - 5.2 g/dL [facility] Aspartate Aminotransferase 22 0 - 39 unit/L [facility] Alanine Aminotransferase 18 0 - 55 unit/L [facility] Alkaline Phosphatase 103 40 - 130 unit/L [facility] Bilirubin, Total 0.2 0.2 - 1.3 mg/dL [facility] Est Glomerular Filtration Rate 85 >=60 mL/min/1. 73 m?? [facility] Comment: This patient's estimated GFR was [...] MD CHEMISTRY ORDERFreedom OSEGUERA Performing Organization Address City/[facility]/ZIP Co de Phone Number [facility] [place] [address] * (ABNORMAL) Immunoglobulins, Quantitative (03/06/2023 7:45 AM EST) Immunoglobulin G 572(L) 700 - 1,600 mg/dL [facility] Comment: Pediatric Reference Intervals obtained from the Caliper Reference Interval project. http://www.sickuma information technologyds.ca/caliperproject/index.html IgA 118 70 - 400 mg/dL [facility] IgM 123 40 - 230 mg/dL [facility] Blood 03/06/2023 7:45 AM EST 03/06/2023 8:00 AM EST Narrative Resulting Agency Comment Spec In Lab Adrianne Ramon MD CHEMISTRY ORDERFreedom OSEGUERA [facility] [place] [address] * Lactate Dehydrogenase (03/06/2023 7:45 AM EST) Lactate Dehydrogenase 198 110 - 220 unit/L [facility] Blood 03/06/2023 7:45 AM EST 03/06/2023 8:00 AM EST Narrative Resulting Agency Comment Spec In Lab Adrianne Ramon MD CHEMISTRY ORDERA BLES [facility] [place] [address] * Uric acid (03/06/2023 7:45 AM EST) Uric Acid 5.5 3.5 - 8.5 mg/dL [facility] Blood 03/06/2023 7:45 AM EST 03/06/2023 8:00 AM EST Narrative Resulting Agency Comment Spec In Lab Adrianne Ramon MD CHEMISTRY ORDERA BLES Performing Organization Address City/[facility] Co de Phone Number [facility] [place] [address] documented in this encounter Visit Diagnoses Diagnosis [...] Sun03/06/23 at 0740, Until Sun03/07/23 at 0433, Gas Controller, Routine Given 03/06/2023 7:50 AM EST 20 mLs documented in this encounter Care Teams Pre Owned Sales Consultant Relationship Specialty Start Date End Date Frederick Meade MD [address] [place] [address] [address] [place] [address] PCP - General Family Medicine 11/29/17 documented as of this encounter
--- OUTSIDE RECORDS SUMMARY | 2023-11-16 06:30 | XMS_ITS | Encounter Summary ---
Author Organization [facility] [place] [address] Care Team Providers Care Report Developer Name Role Phone Frederick Meade MD Primary Care Provider +1 -[phone] Reason for Visit * Reason Comments Chemotherapy [...] [facility] DR [place] [address] [facility] Infusion [address] [place] [phone] Referral ID Status Reason Start Date Expiration Date Visits Re quested Visits Authorized [id number] Closed 10/11/2022 10/11/2023 1 100 Encounter Details Date Type Department Care Team (Late st Contact Info) Description 01/31/2023 9:00 AM EST Infusion Hematology Oncology at [address] [address] Diffuse large B-cell lymphoma of [...] treatment. OBJECTIVE LAB DATA: completed today at [facility] Pre administration: Chemotherapy orders independently verified [...] AM EDT Office Visit Hematology/Oncology at [address] [phone] Adrianne Ramon MD [facility] [address] [place] [address] Yael Merlos APRN [facility] [place] [address] 11/21/2023 10:00 AM EDT Infusion Hematology Oncology at [address] [address] 11/23/2023 11:00 AM EDT Office Visit Hematology [place] [phone] Reynold Proctor MD [facility] [place] [address] 11/23/2023 1:00 PM EDT Appointment Hematology [place] [phone] 11/23/2023 2:00 PM EDT Office Visit Hematology [place] [phone] Micha Givens Jr., MD [facility] [address] [place] [address] 11/23/2023 3:30 PM EDT [place] [address] Micha Givens Jr., MD [facility] [place] [address] documented as of this encounter Visit Diagnoses [...] 2 minutes is a recommendation from the seafood service team member. Administer prior to chemotherapy., Routine Given 01/31/2023 [...] (IV) Procedure: Accessing Implanted Vascular Access Devices (794) procedure and/or Intravenous (IV) Job Aid: Adult Flushing & Catheter Care (9313) job aid for additional information regarding guidelines [...] Job Aid: Adult Flushing & Catheter Care (4647) job aid for additional information regarding guidelines [...] mL/hr documented in this encounter Care Teams Report Developer Relationship Specialty Start Date End Date Frederick Meade MD [address] [facility] 1 [place] [address] PCP - General Family Medicine 11/29/17 documented as of this encounter
--- OUTSIDE RECORDS SUMMARY | 2023-11-16 06:30 | XMS_ITS | Encounter Summary ---
Author Organization [facility] Address [facility] [place] [address] Care Team Providers Care Machinist First Class Name Role Phone Frederick Meade MD Primary Care Provider [phone] Encounter Details Date Type Department Care Team (Late st Contact Info) Description 12/06/2022 2:30 PM EDT TH Visit (TeleHealth) Hematology/Oncology at [address] [address] Adrianne Ramon MD [facility] DR HEMATOLOGY [place] [address] Diffuse large B-cell lymphoma of lymph nodes [...] - 12/06/2022 3:30 PM EDT Hematology Clinic [facility] [place] [phone] HEMATOLOGY PATIENT EVALUATION Patient Active Problem List [...] [facility] and when to [facility]. No beds so sent to [facility] for [address]. [address] CAP, [...] and needle of cervical LN. FISH from [place] No MYCrearrangement and no fusion of MYC [...] only 1 biologic. Son Cheo Freire. Enjoys Virtual View App, SureBooks, Lending a Helping Hand car, EZ4U. Notegraphy. 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 Not a . ETOH: 1-3 beers per week Smoking: Quit 1985. Approximately 08-luog-psmt history Vaping or electronic cigarettes: denies Chewing tobacco: denies Marijuana or other recreational drug use: none HIPPA Contact Permission: Claritza and Ceho. Also OK to talk to Delia adult children. OK to leave message with medical information on home or cell phone: home phone PHYSICAL EXAM BP 132/73 Pulse 86 Temp 36.5 ??C (97.7 ??F) (Temporal) Resp 16 Wt 90.7 kg (200 lb) SpO2 96% BMI 31.91 kg/m?? GENERAL: Cheo Freire is a delightful 72-year old male in [facility]. He is accompanied to the clinic by [...] and BCL-2 protein (Double Expressor.) Flow cytometry ([id number]) supports this interpretation. FISH from [place] No MYC rearrangement and no fusion of MYC and IGH was observed, CD3 (SP7, Thermo Scientific) Background T-cells CD20 (L26, Dickson) diffusely positive in Neoplastic B-cells PAX-5 (1EW, Leica) diffusely positive in Neoplastic B-cells CD10 (SP67, Dickson) Negative BCL-6 (G/191E/A8, Dickson) Positive MUM-1 (MUM1p, Dako) Positive Myc (Y69, Abcam) Positive BCL-2 Oncoprotein (124, Dickson) Positive Ki67 (MIB-1) (K2, Leica) Greater than 95% of cells in cycle Cyclin D1(SP4-R, Dickson) Negative SAPPHIRE JOSE ([id number], Leica) Negative. DIAGNOSTICS: 11/28/22 ECHO after C#2 [...] last ECHO on 11/28/22) Next ECHO at [facility] on 01/25/23 Suspected MEHNAZ - Hgb drop 3gm in last 2 weeks. No overt bleeding. Taking oral iron bid. 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 No COLO in last 10 years. [...] Jan 2023 - booked for 01/25/23 at [facility] Stop iron, not MEHNAZ, has anemia of [...] AM EDT Office Visit Hematology/Oncology at [address] [phone] Adrianne Ramon MD [facility] HEMATOLOGY [place] [address] Yael Merlos APRN [facility] HEMATOLOGY [place] [address] 11/21/2023 10:00 AM EDT Infusion Hematology Oncology at [address] [phone] 11/23/2023 11:00 AM EDT Office Visit Hematology [place] [phone] Reynold Proctor MD [facility] [place] [address] 11/23/2023 1:00 PM EDT Appointment Hematology [place] [address] 11/23/2023 2:00 PM EDT Office Visit Hematology [place] [address] Micha Givens Jr., MD [facility] [place] [address] 11/23/2023 3:30 PM EDT Hospital [place] [address] Micha Givens Jr., MD [facility] DR HEMATOLOGY [place] [address] documented as of this encounter Procedures Procedure [...] 4.99 Hemoglobin 9.2 Hematocrit 27.9 Platelet 139 Neutrophil Absolute (ANC) - Automated 3.74 Blood 12/06/2022 Historical Provider MD HEMATOLOGY ORDERA BLES documented in this encounter Visit Diagnoses Diagnosis Diffuse large B-cell lymphoma of lymph nodes of multiple regions documented in this encounter Care Teams Machinist First Class Relationship Specialty Start Date End Date Frederick Meade MD [address] [place] [address] PCP - General Family Medicine 11/29/17 documented as of this encounter
--- OUTSIDE RECORDS SUMMARY | 2023-11-16 06:30 | XMS_ITS | Encounter Summary ---
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 Procedures NM PET CT Skull Base to Mid-thigh Yael Merlos ASSISTANCE REPRESENTATIVE [facility] [place] [address] [place] [address] Referral ID Status Reason Start Date Expiration Date V isits Requested Visits Authorized [id number] Closed Specialty Service Requested 01/15/2023 07/15/2024 1 1 Encounter Details Date Type Department Care Team (Latest Contact Info) Description 03/06/2023 7:52 AM EST - 03/06/2023 11:59 PM [facility] Hospital En[place] [address] Yael Merlos [facility] [place]AT[place] [address] Discharge Disposition: Home Social History [...] tablet Take 5 mg by mouth daily. Bashar[employer] ULTRA BLUE TEST STRIP Strip USE TO [...] AM EDT Office Visit Hematology/Oncology at [address] [phone] Adrianne Ramon MD [facility] DR [place] [address] Yael Merlos, ASSISTANCE REPRESENTATIVE [facility] DR [place] [address] 11/21/2023 10:00 AM EDT Infusion Hematology Oncology at [address] [phone] 11/23/2023 11:00 AM EDT Office Visit [place]ematology [place] [address] Reynold Proctor MD [facility] [place] [address] 11/23/2023 1:00 PM EDT Appointment [place]ology [place] [address] 11/23/2023 2:00 PM EDT Office Visit [place]ology [place] [address] Micha Givens Jr., MD [facility] DR [place] [address] 11/23/2023 3:30 PM EDT [place] [address] Micha Givens Jr., MD [facility] DR [place]OLOG[place] [address] documented as of this encounter Procedures Procedure Name Priority Date/Time Associated Diagnosis Comments NM PET CT SKULL BASE TO MID-THIGH ([facility]R) Routine 03/06/2023 9:17 AM EST Diffuse large B-cell lymphoma of lymph nodes of multiple regions POCT GLUCOSE Routine 03/06/2023 8:05 AM EST documented in this encounter Results * POCT Glucose (03/06/2023 8:05 AM EST) Glucose, POC 126 65 - 199 mg/dL [facility] Comment: Supplemental ranges: <140 mg/dL before meals <180 mg/dL all other times of the day Blood 03/06/2023 8:05 AM EST 03/06/2023 8:05 AM EST Yael Merlos ASSISTANCE REPRESENTATIVE POINT OF CARE TEST ORDERABLES [facility] [place] [address] documented in this encounter Visit Diagnoses Not on filedocumented in this encounter Care Teams Bone Cooking Operator Relationship Specialty Start Date End Date Frederick Meade MD [address] [place] [address] [address] [place] [address] PCP - General Family Medicine 11/29/17 documented as of this encounter
--- OUTSIDE RECORDS SUMMARY | 2023-11-16 06:30 | XMS_ITS | Encounter Summary ---
[place] [address] Care Team Providers Care Field Health Officer Name Role Phone Frederick Meade MD Primary Care Provider [phone] [phone] Reason for Referral * Diagnostic Test (Routine) - Closed Specialty Diagnoses / Procedures Referred By Contac t Referred To Contact Radiology Diagnoses Diffuse large B-cell lymphoma of lymph nodes of multiple regions Procedures NM PET CT Standard Plus Extremities and Head Yael Merlos APRN [facility] HEMATOLOGY [place] [address] [place] [address] Referral ID Status Reason Start Date Expiration Date V isits Requested Visits Authorized [id number] Closed Specialty Service Requested 12/20/2022 06/19/2024 1 1 Reason for Visit * Reason Comments Follow-up Chemotherapy Encounter Details Date Type Department Care Team (Late st Contact Info) Description 12/20/2022 8:30 AM EDT Office Visit Hematology/Oncology at [address] [address] [facility] HEMATOLOGY [place] [address] [facility] HEMATOLOGY [place] [address] Diffuse large B-cell lymphoma of lymph nodes [...] this encounter Progress Notes * Yael Merlos, REMELT PAN TANK OPERATOR - 12/20/2022 8:30 AM EDT Hematology Clinic [facility] [place] [address] HEMATOLOGY PATIENT EVALUATION Patient Active Problem List [...] ~2 weeks ago saw [facility] in [facility] and when to [facility]. No beds so sent to [facility] for [address] CAP, [...] x7 days with nice response. Pathology from [facility] reports large B-cell lymphoma. Double expresser. FISH for translocations are pending. Tongue swelling. No wt loss. Eating and drinking OK. No fevers, infections, No NS. Pain in neck.Prednisone 60mg daily X 7 days. I feel great on prednisone last day of prednisone is today Took iron supplements per PCP - unclear cause. - last COLO at [facility] was 01/17/2012. INTERIM HISTORY OF [...] and needle of cervical LN. FISH from [place] No MYCrearrangement and no fusion of MYC [...] only 1 biologic. Son Cheo Freire. Enjoys [employer], movies, race car, cards. [employer]. 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 Not a . ETOH: 1-3 beers per week Smoking: Quit 1985. Approximately 43-lgbf-lbvr history Vaping or electronic cigarettes: denies Chewing [...] and BCL-2 protein (Double Expressor.) Flow cytometry ([id number]) supports this interpretation. FISH from [place] No MYC rearrangement and no fusion of MYC and IGH was observed, CD3 (SP7, Thermo Scientific) Background T-cells CD20 (L26, Schertz) diffusely positive in Neoplastic B-cells PAX-5 (1EW, Leica) diffusely positive in Neoplastic B-cells CD10 (SP67, Schertz) Negative BCL-6 (G/191E/A8, Schertz) Positive MUM-1 (MUM1p, Dako) Positive Myc (Y69, Abcam) Positive BCL-2 Oncoprotein (124, Schertz) Positive Ki67 (MIB-1) (K2, Leica) Greater than 95% of cells in cycle Cyclin D1(SP4-R, Schertz) Negative SAPPHIRE JOSE ([id number], Leica) Negative. DIAGNOSTICS: 11/28/22 ECHO after C#2 [...] Jan 2023 - booked for 01/25/[address] [facility] Recommend COVID vaccine though he is aware that he may not have a robust response due to ongoing chemotherapy with B-cell depletion. He has already received influenza vaccine. I discussed all of the above with the patient and all of his questions were answered. Support and counseling as appropriate. Yael Merlos, MSN, REMELT PAN TANK OPERATOR Nurse practitioner Section of Hematology Copy Frederick Meade MD documented in this encounter Plan of Treatment Upcoming Encounters Date Type Department Care Team (Late st Contact Info) Description 11/21/2023 9:30 AM EDT Office Visit Hematology/Oncology at [address] [address] [facility] HEMATOLOGY AND [place] [address] [facility] HEMATOLOGY AND [place] [address] 11/21/2023 10:00 AM EDT Infusion Hematology Oncology at [address] [address] 11/23/2023 11:00 AM EDT Office Visit Hematology [place] [address] [facility] [place] [address] 11/23/2023 1:00 PM EDT Appointment Hematology [place] [phone] 11/23/2023 2:00 PM EDT Office Visit Hematology [place] [phone] Micha Givens Jr., MD [facility] DR HEMATOLOGY [place] [address] 11/23/2023 3:30 PM EDT Hospital [place] [phone] Micha Givens Jr., MD [facility] DR HEMATOLOGY [place] [address] documented as of this encounter Procedures Procedure [...] who have questions please contact the health elderly caregiver that requested your imaging first. ? Electronically signed by: Fletcher Duckworth MD, [facility] ([phone]), at 01/05/2023 9:50 AM Narrative 01/05/2023 9:50 AM EST EXAMINATION: NM PET CT STANDARD PLUS EXTREMITIES AND HEAD CLINICAL HISTORY: Hematologic malignancy, assess treatment response Non-Hodgkin lymphoma TECHNIQUE: Procedure: Following IV injection of 70-lkxjgl-8-deoxyglucose (FDG) a standard uptake of approximately 60 [...] lymphoma TECHNIQUE: Procedure: Following IV injection of 91-wavcdl-7-deoxyglucose(FDG) a standard uptake of approximately 60 minutes, [...] of the left upper lobe (image 131 [id number]). These foci are new since the prior [...] patients who have questions please contactthe health elderly caregiver that requested your imaging first. Electronically signed by: Fletcher Duckworth MD, [facility]([phone]), at 01/05/2023 9:50 AM Yael Merlos REMELT PAN TANK OPERATOR IMG PET ORDERABLES * Comprehensive metabolic panel (non-fasting) (12/20/2022) Pathologist [facility] Creatinine 0.9 Potassium 3.4 Bilirubin, Total 0.2 Aspartate Aminotransferase 15 Alanine Aminotransferase 19 Lactate Dehydrogenase 174 Iron 33 TIBC 197 Iron Saturation 17 Ferritin 279 Blood 12/20/2022 Historical Provider CHEMISTRY ORDERAB LES * CBC (with Diff) (12/20/2022) Pathologist [facility] White Blood Cell 8 Hemoglobin 9.8 Hematocrit 30.3 Platelet 264 Neutrophil Absolute (ANC) - Automated 5.61 Blood 12/20/2022 Historical Provider MD HEMATOLOGY ORDERA BLES documented in this encounter Visit Diagnoses Diagnosis Diffuse large 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
--- OUTSIDE RECORDS SUMMARY | 2023-11-16 06:30 | XMS_ITS | Encounter Summary ---
Author Organization [facility] Address [facility] [place] [address] Care Team Providers Care Endoscopy Nurse Name Role Phone Frederick Meade MD Primary Care Provider [phone] [phone] Encounter Details Date Type Department Care Team (Late st Contact Info) Description 01/31/2023 Notes Only Hematology/Oncology at [address] [address] Shelley Cason, [facility] [place] [place] OFFICE OF CARE [...] did not identify any new needs today. PHOTONIC LABORATORY TECHNICIAN will continue as a resource for them. Brief assessment Supportive Counseling documented in this encounter Plan of Treatment Upcoming Encounters Date Type Department Care Team (Late st Contact Info) Description 11/21/2023 9:30 AM EDT Office Visit Hematology/Oncology at [address] [address] Adrianne Ramon MD [facility] HEMATOLOGY [place] [address] Yael Merlos APRN [facility] HEMATOLOGY [place] [address] 11/21/2023 10:00 AM EDT Infusion Hematology Oncology at [address] [address] 11/23/2023 11:00 AM EDT Office Visit Hematology [place] [phone] Reynold Proctor MD [facility] [place] [address] 11/23/2023 1:00 PM EDT Appointment Hematology and Oncology at [place] [phone] 11/23/2023 2:00 PM EDT Office Visit Hematology and Oncology at [place] [phone] Micha Givens Jr., MD [facility] [address] [place] [address] 11/23/2023 3:30 PM EDT Hospital Encounter MRI at [place] [phone] Micha Givens Jr., MD [facility] DR HEMATOLOGY [place] [address] documented as of this encounter Visit Diagnoses Not on filedocumented in this encounter Care Teams Endoscopy Nurse Relationship Specialty Start Date End Date Frederick Meade MD [address] [place] [address] [address] [facility] [address] [place] [address] PCP - General Family Medicine 11/29/17 documented as of this encounter
--- OUTSIDE RECORDS SUMMARY | 2023-11-16 06:30 | XMS_ITS | Encounter Summary ---
Author Organization [facility] Address [facility] [place] [address] Care Team Providers Care Cash Reconciliation Specialist Name Role Phone Frederick Meade MD Primary Care Provider [phone] [phone] Reason for Visit * Reason Comments Follow-up Chemotherapy Encounter Details Date Type Department Care Team (Late st Contact Info) Description 01/31/2023 8:30 AM EST Office Visit Hematology/Oncology at [address] [address] Yael Merlos, SETTER MACHINE [facility] DR [place] [address] Diffuse large B-cell lymphoma of lymph nodes [...] this encounter Progress Notes * Yael Merlos, SETTER MACHINE - 01/31/2023 8:30 AM EST Hematology Clinic [facility] [place] [address] HEMATOLOGY PATIENT EVALUATION PROBLEM LIST: Patient Active [...] ~2 weeks ago saw [facility] in [facility] and when to [facility]. [facility] x7 days with nice response. Pathology from [facility] reports large B-cell lymphoma. Double expresser. FISH for translocations are pending. Tongue swelling. No wt loss. Eating and drinking OK. No fevers, infections, No NS. Pain in neck.Prednisone 60mg daily X 7 days. I feel great on prednisone last day of prednisone is today Took iron supplements per PCP - unclear cause. - last COLO at [facility] was 01/17/2012. INTERIM HISTORY OF PRESENT [...] and needle of cervical LN. FISH from [place] No MYCrearrangement and no fusion of MYC [...] Freire. Enjoys reads, movies, race car, cards. Photos to [employer]. 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 Not a . ETOH: 1-3 beers per week Smoking: Quit 1985. Approximately 36-fpxj-gpor history Vaping or electronic cigarettes: denies Chewing [...] and BCL-2 protein (Double Expressor.) Flow cytometry ([id number]) supports this interpretation. FISH from [place] No MYC rearrangement and no fusion of MYC and IGH was observed, CD3 (SP7, Thermo Scientific) Background T-cells CD20 (L26, Delacroix) diffusely positive in Neoplastic B-cells PAX-5 (1EW, Leica) diffusely positive in Neoplastic B-cells CD10 (SP67, Delacroix) Negative BCL-6 (G/191E/A8, Delacroix) Positive MUM-1 (MUM1p, Dako) Positive Myc (Y69, Abcam) Positive BCL-2 Oncoprotein (124, Delacroix) Positive Ki67 (MIB-1) (K2, Leica) Greater than 95% of cells in cycle Cyclin D1(SP4-R, Delacroix) Negative SAPPHIRE JOSE ([id number], Leica) Negative. DIAGNOSTICS: 01/25/23 ECHO after C#5 [...] undergo investigation with ultrasound. CT CAP at [facility], report and images have been requested. [...] at 50-55%. --asymptomatic --repeat echo at [facility] 1 year post completion of therapy [...] and counseling as appropriate. Yael Merlos, MSN, SETTER MACHINE Nurse Practitioner Section of Hematology Copy Frederick Meade MD documented in this encounter Plan of Treatment Upcoming Encounters Date Type Department Care Team (Late st Contact Info) Description 11/21/2023 9:30 AM EDT Office Visit Hematology/Oncology at [address] [address] Adrianne Ramon MD [facility] [place] [address] Yael Merlos APRN [facility] [place] [address] 11/21/2023 10:00 AM EDT Infusion Hematology Oncology at [address] [address] 11/23/2023 11:00 AM EDT Office Visit Hematology [place] [address] Reynold Proctor MD [facility] [place] [address] 11/23/2023 1:00 PM EDT Appointment Hematology and Oncology at [place] [phone] 11/23/2023 2:00 PM EDT Office Visit Hematology [place] [address] Micha Givens Jr., MD [facility] [place] [address] 11/23/2023 3:30 PM EDT Hospital [place] [address] Micha Givens Jr., MD [facility] DR [place] [address] documented as of this encounter Procedures Procedure [...] 3.26(L) Hemoglobin 9.7(L) Hematocrit 31.0(L) Platelet 318 Neutrophil Absolute (ANC) - Automated 4.72 Blood 01/31/2023 Historical Provider HEMATOLOGY ORDERA BLES documented in this encounter Visit Diagnoses Diagnosis Diffuse large B-cell lymphoma of lymph nodes of multiple regions Iron deficiency anemia, unspecified iron deficiency anemia type Clostridium difficile colitis Intestinal infection due to clostridium difficile documented in this encounter Care Teams Cash Reconciliation Specialist Relationship Specialty Start Date End Date Frederick Meade MD [facility] [address] [place] [address] PCP - General Family Medicine 11/29/17 documented as of this encounter
--- OUTSIDE RECORDS SUMMARY | 2023-11-16 06:30 | XMS_ITS | Encounter Summary ---
Author Organization [facility] [place] [address] Care Team Providers Care Truck Bench Mechanic Name Role Phone Frederick Meade MD Primary Care Provider [phone] Encounter Details Date Type Department Care Team [...] AM EDT Office Visit Hematology/Oncology at [address] [address] Adrianne Ramon MD [facility] [place] [address] Yael Merlos APRN [facility] [place] [address] 11/21/2023 10:00 AM EDT Infusion Hematology Oncology at [address] [address] 11/23/2023 11:00 AM EDT Office Visit Hematology [place] [phone] Reynold Proctor MD [facility] [place] [address] 11/23/2023 1:00 PM EDT Appointment Hematology [place] [address] 11/23/2023 2:00 PM EDT Office Visit Hematology [place] [address] Micha Givens Jr., MD [facility] [place] [address] 11/23/2023 3:30 PM EDT Hospital [place] [address] Micha Givens Jr., MD [facility] [address] [place] [address] documented as of this encounter Visit Diagnoses Not on filedocumented in this encounter Care Teams Truck Bench Mechanic Relationship Specialty Start Date End Date Frederick Meade MD [address] [place] [address] [address] [place] [address] PCP - General Family Medicine 11/29/17 documented as of this encounter
--- OUTSIDE RECORDS SUMMARY | 2023-11-16 06:30 | XMS_ITS | Encounter Summary ---
Author Organization [facility] [place] [address] Care Team Providers Care Department Mgr Name Role Phone Frederick Meade MD Primary Care Provider [phone] [phone] Encounter Details Date Type Department Care Team [...] AM EDT Office Visit Hematology/Oncology at [address] [address] Adrianne Ramon MD [facility] DR HEMATOLOGY [place] [address] Yael Merlos APRN [facility] DR HEMATOLOGY [place] [address] 11/21/2023 10:00 AM EDT Infusion Hematology Oncology at [address] [address] 11/23/2023 11:00 AM EDT Office Visit [place]ematology [place] [phone] Reynold Proctor MD [facility] [place] [address] 11/23/2023 1:00 PM EDT Appointment [place]ematology [place] [phone] 11/23/2023 2:00 PM EDT Office Visit [place]ematology [place] [address] Micha Givens Jr., MD [facility] HEMATOLOGY [place] [address] 11/23/2023 3:30 PM EDT [place] [address] Micha Givens Jr., MD [facility] DR HEMATOLOGY [place] [address] documented as of this encounter Visit Diagnoses Not on filedocumented in this encounter Care Teams Department Mgr Relationship Specialty Start Date End Date Frederick Meade MD [address] [place] [address] [address] [place] [address] PCP - General Family Medicine 11/29/17 documented as of this encounter
--- OUTSIDE RECORDS SUMMARY | 2023-11-16 06:30 | XMS_ITS | Encounter Summary ---
[place] [address] Care Team Providers Care Maritime Officer Name Role Phone Frederick Meade MD Primary Care Provider [phone] Reason for Referral * Diagnostic Test (Routine) - Closed Specialty Diagnoses / Procedures Referred By Contac t Referred To Contact Radiology Diagnoses Diffuse large B-cell lymphoma of lymph nodes of multiple regions Procedures NM PET CT Standard Plus Extremities and Head Yael Merlos APRN [facility] DR HEMATOLOGY [place] [address] [place] [address] Referral ID Status Reason Start Date Expiration Date V isits Requested Visits Authorized [id number] Closed Specialty Service Requested 12/20/2022 06/19/2024 1 1 Reason for Visit * Diagnostic Test (Routine) - Closed Specialty Diagnoses / Procedures Referred By Contac t Referred To Contact Radiology Diagnoses Diffuse large B-cell lymphoma of lymph nodes of multiple regions Procedures NM PET CT Standard Plus Extremities and Head Yael Merlos APRN [facility] HEMATOLOGY [place] [address] [place] [address] Referral ID Status Reason Start Date Expiration Date V isits Requested Visits Authorized [id number] Closed Specialty Service Requested 12/20/2022 06/19/2024 1 1 Encounter Details Date Type Department Care Team (Latest Contact Info) Description 01/05/2023 7:19 AM EST - 01/05/2023 11:59 PM EST Hospital Encounter Nuclear Medicine at [address] [phone] Yael Merlos APRN [facility] DR HEMATOLOGY [place] [address] Diffuse large B-cell lymphoma of lymph nodes [...] AM EDT Office Visit Hematology/Oncology at [address] [address] Adrianne Ramon MD [facility] HEMATOLOGY [place] [address] Yael Merlos APRN [facility] HEMATOLOGY [place] [address] 11/21/2023 10:00 AM EDT Infusion Hematology Oncology at [address] [phone] 11/23/2023 11:00 AM EDT Office Visit Hematology and Oncology at [place] [phone] Reynold Proctor MD [facility] [place] [address] 11/23/2023 1:00 PM EDT Appointment Hematology and Oncology at [place] [phone] 11/23/2023 2:00 PM EDT Office Visit Hematology [place] [address] Micha Givens Jr., MD [facility] HEMATOLOGY [place] [address] 11/23/2023 3:30 PM EDT Hospital [place] [address] Micha Givens Jr., MD [facility] HEMATOLOGY [place] [address] documented as of this encounter Procedures Procedure [...] have questions please contact the health care management associate that requested your imaging first. ? Electronically signed by: Fletcher Duckworth MD, [facility] ([phone]), at 01/05/2023 9:50 AM Narrative 01/05/2023 9:50 AM EST EXAMINATION: NM PET CT STANDARD PLUS EXTREMITIES AND HEAD CLINICAL HISTORY: Hematologic malignancy, assess treatment response Non-Hodgkin lymphoma TECHNIQUE: Procedure: Following IV injection of 35-ctsxor-2-deoxyglucose (FDG) a standard uptake of approximately 60 [...] lymphoma TECHNIQUE: Procedure: Following IV injection of 36-smqxqb-7-deoxyglucose(FDG) a standard uptake of approximately 60 minutes, [...] of the left upper lobe (image 131 [id number]). These foci are new since the prior [...] who have questions please contactthe health care management associate that requested your imaging first. Electronically signed by: Fletcher Duckworth MD, [facility]([phone]), at 01/05/2023 9:50 AM Yael Lugo Chelita [employer]ING SUIT [employer]KER IMG PET ORDERABLES documented in this [...] Arm documented in this encounter Care Teams Maritime Officer Relationship Specialty Start Date End Date Frederick Meade MD [address] [place] [address] PCP - General Family Medicine 11/29/17 documented as of this encounter
--- OUTSIDE RECORDS SUMMARY | 2023-11-16 06:30 | XMS_ITS | Encounter Summary ---
[place] [address] Care Team Providers Care Boarding Mother Name Role Phone Frederick Meade MD Primary Care Provider +1 [phone] Reason for Referral * Diagnostic Test (Routine) - Closed Specialty Diagnoses / Procedures Referred By Contac t Referred To Contact Radiology Diagnoses Diffuse large B-cell lymphoma of lymph nodes of multiple regions Procedures NM PET CT Skull Base to Mid-thigh Yael Merlos SALES OPERATIONS ASSOCIATE [facility] DR HEMATOLOGY [place] [address] [place] [address] Referral ID Status Reason Start Date Expiration Date V isits Requested Visits Authorized [id number] Closed Specialty Service Requested 01/15/2023 07/15/2024 1 1 Reason for Visit * Diagnostic Test (Routine) - Closed Specialty Diagnoses / Procedures Referred By Contac t Referred To Contact Radiology Diagnoses Diffuse large B-cell lymphoma of lymph nodes of multiple regions Procedures NM PET CT Skull Base to Mid-thigh Yael Merlos SALES OPERATIONS ASSOCIATE [facility] HEMATOLOGY [place] [address] [place] [address] Referral ID Status Reason Start Date Expiration Date V isits Requested Visits Authorized [id number] Closed Specialty Service Requested 01/15/2023 07/15/2024 1 1 Encounter Details Date Type Department Care Team (Latest Contact Info) Description 03/06/2023 7:52 AM EST - 03/06/2023 11:59 PM EST Hospital Encounter [place] [phone] Yael Merlos APRN [facility] DR HEMATOLOGY [place] [address] Diffuse large B-cell lymphoma of lymph nodes [...] AM EDT Office Visit Hematology/Oncology at [address] [address] Adrianne Ramon MD [facility] DR HEMATOLOGY [place] [address] Yael Merlos, SALES OPERATIONS ASSOCIATE [facility] DR HEMATOLOGY [place] [address] 11/21/2023 10:00 AM EDT Infusion Hematology Oncology at [address] [address] 11/23/2023 11:00 AM EDT Office Visit [place] [address] Reynold Proctor MD [facility] [place] [address] 11/23/2023 1:00 PM EDT Appointment Hematology [place] [address] 11/23/2023 2:00 PM EDT Office Visit Hematology [place] [address] Micha Givens Jr., MD [facility] DR HEMATOLOGY [place] [address] 11/23/2023 3:30 PM EDT [place] [address] Micha Givens Jr., MD [facility] DR HEMATOLOGY [place] [address] documented as of this encounter Procedures Procedure [...] have questions please contact the health childcare center director that requested your imaging first. ? Electronically signed by: Tracey Flood MD, [facility] ??([phone]), at 03/08/2023 11:33 AM Narrative 03/08/2023 11:33 AM EST EXAMINATION: NM PET CT STANDARD SKULL BASE TO MID-THIGH CLINICAL HISTORY: Hematologic malignancy, assess treatment response History of diffuse large B-cell lymphoma, status post 6 cycles of RCHOP. TECHNIQUE: Following IV injection of 11-bcwwwu-1-deoxyglucose (FDG) a standard uptake of approximately 60 [...] of RCHOP. TECHNIQUE: Following IV injection of 64-tvgvjm-5-deoxyglucose (FDG) astandard uptake of approximately 60 minutes, [...] who have questions please contactthe health childcare center director that requested your imaging first. Electronically signed by: Tracey Flood MD, [facility]([phone]), at 03/08/2023 11:33 AM Yael Merlos SALES OPERATIONS ASSOCIATE IMG PET ORDERABLES documented in this encounter [...] Port documented in this encounter Care Teams Boarding Mother Relationship Specialty Start Date End Date Frederick Meade MD [address] [facility] [address] [place] [address] PCP - General Family Medicine 11/29/17 documented as of this encounter
--- OUTSIDE RECORDS SUMMARY | 2023-11-16 06:30 | XMS_ITS | Encounter Summary ---
Author Organization [facility] [place] [address] Care Team Providers Care Potato Spotter Name Role Phone Frederick Meade MD Primary Care Provider +1 -[phone] Encounter Details Date Type Department Care Team (Late st Contact Info) Description 11/16/2022 Orders Only Hematology [place] [phone] Adrianne Ramon MD [facility] [address] [place] [address] High risk medication use; Diffuse large B-cell [...] AM EDT Office Visit Hematology/Oncology at [address] [address] Adrianne Ramon MD [facility] [address] [place] [address] Yael Merlos APRN [facility] [place] [address] 11/21/2023 10:00 AM EDT Infusion Hematology Oncology at [address] [address] 11/23/2023 11:00 AM EDT Office Visit Hematology [place] [address] Reynold Proctor MD [facility] [place] [address] 11/23/2023 1:00 PM EDT Appointment Hematology [place] [address] 11/23/2023 2:00 PM EDT Office Visit Hematology [place] [address] Micha Givens Jr., MD [facility] [address] [place] [address] 11/23/2023 3:30 PM EDT Hospital [place] [address] Micha Givens Jr., MD [facility] [address] [place] [address] documented as of this encounter Visit Diagnoses Diagnosis High risk medication use Encounter for long-term (current) use of other medications Diffuse large B-cell lymphoma of lymph nodes of multiple regions documented in this encounter Care Teams Potato Spotter Relationship Specialty Start Date End Date Frederick Meade MD [address] [place] [address] PCP - General Family Medicine 11/29/17 documented as of this encounter
--- OUTSIDE RECORDS SUMMARY | 2023-11-16 06:30 | XMS_ITS | Encounter Summary ---
Author Organization [facility] [place] [address] Care Team Providers Care Research Physiologist Name Role Phone Frederick Meade MD Primary Care Provider +1 [phone] Reason for Visit * Reason Comments Chemotherapy [...] 100MG (CYTOXAN) Adrianne Ramon MD [facility] DR HEMAT[place] [address] [facility] Infusion [address] [place] [address] Referral ID Status Reason Start Date Expiration Date Visits Re quested Visits Authorized [id number] Closed 10/11/2022 10/11/2023 1 100 Encounter Details Date Type Department Care Team (Late st Contact Info) Description 12/20/2022 8:30 AM EDT Infusion Hematology Oncology at [address] [address] Diffuse large B-cell lymphoma of [...] OBJECTIVE LAB DATA: completed 12/20 at [facility] Pre administration: Chemotherapy orders independently verified for [...] AM EDT Office Visit Hematology/Oncology at [address] [address] Adrianne Ramon MD [facility] DR HEM[place] [address] Yael Merlos APRN [facility] DR [place]EMAT[place] [address] 11/21/2023 10:00 AM EDT Infusion Hematology Oncology at [address] [address] 11/23/2023 11:00 AM EDT Office Visit Hematology [place] [address] Reynold Proctor MD [facility] [place] [address] 11/23/2023 1:00 PM EDT Appointment Hematology [place] [address] 11/23/2023 2:00 PM EDT Office Visit Hematology [place] [address] Micha Givens Jr., MD [facility] DR HEMATOLOG[place] [address] 11/23/2023 3:30 PM EDT Hospital [place] [address] Micha Givens Jr., MD [facility] DR HEMATOLOG[place] [address] documented as of this encounter Visit Diagnoses [...] minutes is a recommendation from the screen printing paster. Administer prior to chemotherapy., Routine Given 12/20/2022 [...] (IV) Procedure: Accessing Implanted Vascular Access Devices (184) procedure and/or Intravenous (IV) Job Aid: Adult Flushing & Catheter Care (8648) job aid for additional information regarding guidelines [...] mL/hr documented in this encounter Care Teams Research Physiologist Relationship Specialty Start Date End Date Frederick Meade MD [address] [place] [address] PCP - General Family Medicine 11/29/17 documented as of this encounter
--- OUTSIDE RECORDS SUMMARY | 2023-11-16 06:30 | XMS_ITS | Encounter Summary ---
Author Organization [facility] [place] [address] Care Team Providers Care Cushion Sewer Name Role Phone Frederick Meade MD Primary Care Provider +1 [phone] Encounter Details Date Type Department Care Team [...] AM EDT Office Visit Hematology/Oncology at [address] [address] Adrianne Ramon MD [facility] DR HEMATOLOGY [place] [address] Yael Merlos APRN [facility] DR HEMATOLOGY [place] [address] 11/21/2023 10:00 AM EDT Infusion Hematology Oncology at [address] [address] 11/23/2023 11:00 AM EDT Office Visit [place] [address] Reynold Proctor MD [facility] [place] [place] [address] 11/23/2023 1:00 PM EDT Appointment [place] [address] 11/23/2023 2:00 PM EDT Office Visit [place] [address] Micha Givens Jr., MD [facility] HEMATOLOGY [place] [address] 11/23/2023 3:30 PM EDT [place] [address] Micha Givens Jr., MD [facility] DR HEMATOLOGY [place] [address] documented as of this encounter Visit Diagnoses Not on filedocumented in this encounter Care Teams Cushion Sewer Relationship Specialty Start Date End Date Frederick Meade MD [address] [place] [address] [address] [place] [address] PCP - General Family Medicine 11/29/17 documented as of this encounter
--- OUTSIDE RECORDS SUMMARY | 2023-11-16 06:30 | XMS_ITS | Encounter Summary ---
Author Organization [place] [address] Care Team Providers Care Aerial Photogrammetrist Name Role Phone Frederick Meade MD Primary Care Provider [phone] [phone] Encounter Details Date Type Department Care Team [...] AM EDT Office Visit Hematology/Oncology at [address] [address] Adrianne Ramon MD [facility] DR [place] [address] Yael Merlos APRN [facility] [address] [place] [address] 11/21/2023 10:00 AM EDT Infusion Hematology Oncology at [address] [address] 11/23/2023 11:00 AM EDT Office Visit Hematology [place] [address] Reynold Proctor MD [facility] [place] [address] 11/23/2023 1:00 PM EDT Appointment Hematology [place] [address] 11/23/2023 2:00 PM EDT Office Visit Hematology [place] [address] Micha Givens Jr., MD [facility] [place] [address] 11/23/2023 3:30 PM EDT Hospital [place] [address] Micha Givens Jr., MD [facility] DR [place] [address] documented as of this encounter Visit Diagnoses Not on filedocumented in this encounter Care Teams Aerial Photogrammetrist Relationship Specialty Start Date End Date Frederick Meade MD [address] [place] [address] [address] [place] [address] PCP - General Family Medicine 11/29/17 documented as of this encounter
--- OUTSIDE RECORDS SUMMARY | 2023-11-16 06:30 | XMS_ITS | Encounter Summary ---
Author Organization [facility] Address [facility] [place] [address] Care Team Providers Care Cheese Production Supervisor Name Role Phone Frederick Meade MD Primary Care Provider +1 -[phone] Encounter Details Date Type Department Care Team (Late st Contact Info) Description 12/20/2022 Notes Only Hematology/Oncology at [address] [address] Shelley Cason, [facility] OFFICE OF CARE MANAGEMENT Social [...] were approved for a toi from [facility]. They are appreciative of this financial assistance. Cheo indicated he tolerated his last treatment much better than the first 2 so he hope his one will go well. Oferred them support as Mrs. Freire shared how challenging this is for them. Reminded them of TILE MACHINE OPERATOR availability and will continue to follow for support and resources. Brief assessment Supportive Counseling Financial resources Community Resource documented in this encounter Plan of Treatment Upcoming Encounters Date Type Department Care Team (Late st Contact Info) Description 11/21/2023 9:30 AM EDT Office Visit Hematology/Oncology at [address] [address] Adrianne Ramon MD [facility] DR [place] [address] Yael Merlos APRN [facility] HEMATOLOGY [place] [address] 11/21/2023 10:00 AM EDT Infusion Hematology Oncology at [address] [address] 11/23/2023 11:00 AM EDT Office Visit Hematology [place] [address] Reynold Proctor MD [facility] [place] [address] 11/23/2023 1:00 PM EDT Appointment Hematology [place] [address] 11/23/2023 2:00 PM EDT Office Visit Hematology [place] [address] Micha Givens Jr., MD [facility] DR HEMATOLOGY [place] [address] 11/23/2023 3:30 PM EDT Hospital Encounter MRI at [place] [phone] Micha Givens Jr., MD [facility] DR [place] [address] documented as of this encounter Visit Diagnoses Not on filedocumented in this encounter Care Teams Cheese Production Supervisor Relationship Specialty Start Date End Date Frederick Meade MD [address] [place] [address] [address] [place] [address] PCP - General Family Medicine 11/29/17 documented as of this encounter
--- OUTSIDE RECORDS SUMMARY | 2023-11-16 06:30 | XMS_ITS | Encounter Summary ---
Author Organization [facility] [place] [address] Care Team Providers Care Crossing Guard Name Role Phone Frederick Meade MD Primary Care Provider +1 -[phone] Reason for Visit * Reason Comments Chemotherapy [id number] * Treatment/Therapy Plan Authorization (Routine) - Closed [...] TC CYCLOPHOSPHAMIDE, 100MG (CYTOXAN) Adrianne Ramon MD [facility] [place] [address] [facility] Infusion [address] [place] [address] Referral ID Status Reason Start Date Expiration Date Visits Re quested Visits Authorized [id number] Closed 10/11/2022 10/11/2023 1 100 Encounter Details Date Type Department Care Team (Late st Contact Info) Description 01/10/2023 9:00 AM EST Infusion Hematology Oncology at [address] [address] Diffuse large B-cell lymphoma of [...] treatment. OBJECTIVE LAB DATA: completed today at [facility] Pre administration: Chemotherapy orders independently verified [...] AM EDT Office Visit Hematology/Oncology at [address] [address] Adrianne Ramon MD [facility] [place] [address] Yael Merlos APRN [facility] [place] [address] 11/21/2023 10:00 AM EDT Infusion Hematology Oncology at [address] [address] 11/23/2023 11:00 AM EDT Office Visit Hematology [place] [address] Reynold Proctor MD [facility] [place] [address] 11/23/2023 1:00 PM EDT Appointment Hematology [place] [address] 11/23/2023 2:00 PM EDT Office Visit Hematology [place] [address] Micha Givens Jr., MD [facility] [place] [address] 11/23/2023 3:30 PM EDT Hospital Encounter MRI at [facility] [place] [address] Micha Givens Jr., MD [facility] [place] [address] documented as of this encounter Visit Diagnoses [...] 2 minutes is a recommendation from the soft work cigar machine operator. Administer prior to chemotherapy., Routine Given 01/10/2023 [...] (IV) Procedure: Accessing Implanted Vascular Access Devices (294) procedure and/or Intravenous (IV) Job Aid: Adult Flushing & Catheter Care (8053) job aid for additional information regarding guidelines [...] Job Aid: Adult Flushing & Catheter Care (5953) job aid for additional information regarding guidelines [...] mL/hr documented in this encounter Care Teams Crossing Guard Relationship Specialty Start Date End Date Frederick Meade MD [address] [place] [address] PCP - General Family Medicine 11/29/17 documented as of this encounter
--- OUTSIDE RECORDS SUMMARY | 2023-11-16 06:30 | XMS_ITS | Encounter Summary ---
[place] [address] Care Team Providers Care Cad Developer Name Role Phone Frederick Meade MD Primary Care Provider [phone] [phone] Reason for Visit * Diagnostic Test (Routine) - Closed Specialty Diagnoses / Procedures Referred By Contac t Referred To Contact Radiology Diagnoses Diffuse large B-cell lymphoma of lymph nodes of multiple regions Procedures NM PET CT Standard Plus Extremities and Head Yael Merlos POPCORN VENDOR [facility] [place]OLOGY [place] [address] [place] [address] Referral ID Status Reason Start Date Expiration Date V isits Requested Visits Authorized [id number] Closed Specialty Service Requested 12/20/2022 06/19/2024 1 1 Encounter Details Date Type Department Care Team (Latest Contact Info) Description 01/05/2023 7:19 AM EST - 01/05/2023 11:59 PM [facility] Hospital Encounter [place] [address] Yael Merlos POPCORN VENDOR [facility] HEMATOLOGY [place] [address] Discharge Disposition: Home Social History [...] tablet Take 5 mg by mouth daily. [employer] ULTRA BLUE TEST STRIP Strip USE TO [...] AM EDT Office Visit Hematology/Oncology at [address] [address] Adrianne Ramon MD [facility] DR HEMATOLOGY [place] [address] Yael Merlos APRN [facility] HEMATOLOGY [place] [address] 11/21/2023 10:00 AM EDT Infusion Hematology Oncology at [address] [address] 11/23/2023 11:00 AM EDT Office Visit Hematology [place] [address] Reynold Proctor MD [facility] [place] [address] 11/23/2023 1:00 PM EDT Appointment Hematology [place] [address] 11/23/2023 2:00 PM EDT Office Visit Hematology [place] [address] Micha Givens Jr., MD [facility] DR HEMATOLOG[place] [address] 11/23/2023 3:30 PM EDT Hospital [place] [address] Micha Givens Jr., MD [facility] DR HEMATOLOGY [place] [address] documented as of this encounter Procedures Procedure Name Priority Date/Time Associated Diagnosis Comments NM PET CT STANDARD PLUS EXTREMITIES AND HEAD Routine 01/05/2023 9:05 AM EST Diffuse large B-cell lymphoma of lymph nodes of multiple regions POCT GLUCOSE Routine 01/05/2023 7:26 AM EST documented in this encounter Results * POCT Glucose (01/05/2023 7:26 AM EST) Glucose, POC 124 65 - 199 mg/dL [facility] Comment: Supplemental ranges: <140 mg/dL before meals <180 mg/dL all other times of the day Blood 01/05/2023 7:26 AM EST 01/05/2023 7:26 AM EST Yael Merlos POPCORN VENDOR POINT OF CARE TEST ORDERABLES [facility] [place] [address] documented in this encounter Visit Diagnoses Not on filedocumented in this encounter Care Teams Cad Developer Relationship Specialty Start Date End Date Frederick Meade MD [address] [place] [address] PCP - General Family Medicine 11/29/17 documented as of this encounter
--- OUTSIDE RECORDS SUMMARY | 2023-11-16 06:30 | XMS_ITS | Encounter Summary ---
Author Organization [facility] [place] [address] Care Team Providers Care Director Style Name Role Phone Frederick Meade MD Primary Care Provider +1 -[phone] Encounter Details Date Type Department Care Team [...] AM EDT Office Visit Hematology/Oncology at [address] [address] [address] [facility] DR HEMATOLOGY [place] [address] [facility] DR HEMATOLOGY [place] [address] 11/21/2023 10:00 AM EDT Infusion Hematology Oncology at [address] [address] 11/23/2023 11:00 AM EDT Office Visit Hematology [place] [address] [facility] [place] [address] 11/23/2023 1:00 PM EDT Appointment Hematology [place] [address] 11/23/2023 2:00 PM EDT Office Visit Hematology [place] [address] Micha Givens Jr., MD [facility] HEMATOLOGY [place] [address] 11/23/2023 3:30 PM EDT Hospital [place] [address] Micha Givens Jr., MD [facility] DR HEMATOLOGY [place] [address] documented as of this encounter Visit Diagnoses Not on filedocumented in this encounter Care Teams Director Style Relationship Specialty Start Date End Date Frederick Meade MD [address] [place] [address] [address] [place] [address] PCP - General Family Medicine 11/29/17 documented as of this encounter
--- OUTSIDE RECORDS SUMMARY | 2023-11-16 06:30 | XMS_ITS | Encounter Summary ---
Author Organization [facility] [place] [address] Care Team Providers Care Space Scheduler Name Role Phone Frederick Meade MD Primary Care Provider +1 -[phone] Encounter Details Date Type Department Care Team (Late st Contact Info) Description 11/29/2022 9:00 AM EDT Office Visit Hematology/Oncology at [address] [address] Adrianne Ramon MD [facility] [address] [place] [address] Yael Merlos APRN [facility] [address] [place] [address] Diffuse large B-cell lymphoma of lymph nodes [...] [facility] [place] [address] HEMATOLOGY PATIENT EVALUATION Patient Active Problem List [...] [facility] and when to [facility]. No beds so sent to [facility] for [address] [...] [facility] was 01/17/2012. INTERIM HISTORY OF PRESENT [...] and needle of cervical LN. FISH from [place] No MYCrearrangement and no fusion of MYC [...] only 1 biologic. Son Cheo Freire. Enjoys [employer], [employer], [employer], [employer]. [employer]. 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 Not a . ETOH: 1-3 beers per week Smoking: Quit 1985. Approximately 12-sevh-lurt history Vaping or electronic cigarettes: denies Chewing tobacco: denies Marijuana or other recreational drug use: none HIPPA Contact Permission: Clartiza and Cheo. Also OK to talk to Delia adult children. OK to leave message with medical information on home or cell phone: home phone PHYSICAL EXAM BP 129/69 (Patient Position: Sitting) Pulse 93 Temp 36.5 ??C (97.7 ??F) (Temporal) Resp 16 Ht 168.6 cm (5' 6.38) Wt 91.6 kg (202 lb) SpO2 95% BMI 32.23 kg/m?? GENERAL: Cheo Ferire is a delightful 72-year old male in [...] and BCL-2 protein (Double Expressor.) Flow cytometry ([id number]) supports this interpretation. FISH from [place] No MYC rearrangement and no fusion of MYC and IGH was observed, CD3 (SP7, [employer]) Background T-cells CD20 (L26, [place]) diffusely positive in Neoplastic B-cells PAX-5 (1EW, Leica) diffusely positive in Neoplastic B-cells CD10 (SP67, [place]) Negative BCL-6 (G/191E/A8, [place]) Positive MUM-1 (MUM1p, Dako) Positive Myc (Y69, [employer]cam) Positive BCL-2 Oncoprotein (124, [place]) Positive Ki67 (MIB-1) (K2, Leica) Greater than 95% of cells in cycle Cyclin D1(SP4-R, [place]) Negative SAPPHIRE JOSE ([id number], Leica) Negative. DIAGNOSTICS: 10/10/23 ECHO after C#2 [...] Taking oral iron bid. Stools have been aligner typewriter recently. No COLO in last 10 years. [...] AM EDT Office Visit Hematology/Oncology at [address] [phone] Adrianne Ramon MD [facility] [address] [place] [address] Yael Merlos, DIRECTOR CAREER [facility] [address] [place] [address] 11/21/2023 10:00 AM EDT Infusion Hematology Oncology at [address] [phone] 11/23/2023 11:00 AM EDT Office Visit Hematology and Oncology at [place] [phone] Reynold Proctor MD [facility] [place] [address] 11/23/2023 1:00 PM EDT Appointment Hematology and Oncology at [place] [phone] 11/23/2023 2:00 PM EDT Office Visit Hematology [place] [phone] Micha iGvens Jr., MD [facility] [place] [address] 11/23/2023 3:30 PM EDT Hospital [place] [address] Micha Givens Jr., MD [facility] [place] [address] Scheduled Orders Name Type Priority Associated Diagnoses [...] 7.43 Hemoglobin 9.7 Hematocrit 30.0 Platelet 446 Neutrophil Absolute (ANC) - Automated 5.3 Blood 11/29/2022 Historical Provider HEMATOLOGY ORDERA BLES documented in this encounter Visit Diagnoses Diagnosis Diffuse large B-cell lymphoma of lymph nodes of multiple regions Iron deficiency anemia, unspecified iron deficiency anemia type High risk medication use Encounter for long-term (current) use of other medications Non-Hodgkin lymphoma of lymph nodes of multiple regions, unspecified non-Hodgkin lymphoma type documented in this encounter Care Teams Space Scheduler Relationship Specialty Start Date End Date Frederick Meade MD [address] [place] [address] PCP - General Family Medicine 11/29/17 documented as of this encounter
--- OUTSIDE RECORDS SUMMARY | 2023-11-16 06:30 | XMS_ITS | Encounter Summary ---
Author Organization [facility] Address [facility] [place] [address] Care Team Providers Care Burr Picker Name Role Phone Frederick Meade MD Primary Care Provider +1 [phone] Encounter Details Date Type Department Care Team (Late st Contact Info) Description 01/10/2023 8:30 AM EST Office Visit Hematology/Oncology at [address] [address] Adrianne Ramon MD [facility] [address] [place] [address] Diffuse large B-cell lymphoma of lymph nodes [...] - 01/10/2023 8:30 AM EST Hematology Clinic [facility] [place] [facility] [place] [address] HEMATOLOGY PATIENT EVALUATION Patient Active Problem [...] in [facility] and when to [facility]. [facility] beds [facility] [...] - unclear cause. - last COLO at [facility] was 01/17/2012. INTERIM HISTORY OF PRESENT ILLNESS: Cheo returns to clinic today in routine follow-up for his newly diagnosed DLBCL and in anticipation of cycle #5 of R-CHOP chemotherapy. Since last seen in the clinic ~ 3 weeks ago, Choe reports feeling quite well. He has tolerated [...] and needle of cervical LN. FISH from [place] No MYCrearrangement and no fusion of MYC [...] only 1 biologic. Son Cheo Freire. Enjoys [employer], [employer], [employer], [employer]. Verified Person. 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 Not a . ETOH: 1-3 beers per week Smoking: Quit 1985. Approximately 00-quzv-xnvu history Vaping or electronic cigarettes: denies Chewing [...] is a delightful 72-year old male in [facility]. He is accompanied to the clinic [...] and BCL-2 protein (Double Expressor.) Flow cytometry ([id number]) supports this interpretation. FISH from [place] No MYC rearrangement and no fusion of MYC and IGH was observed, CD3 (SP7, Thermo Scientific) Background T-cells CD20 (L26, [place]) diffusely positive in Neoplastic B-cells PAX-5 (1EW, Leica) diffusely positive in Neoplastic B-cells CD10 (SP67, [place]) Negative BCL-6 (G/191E/A8, [place]) Positive MUM-1 (MUM1p, Dako) Positive Myc (Y69, Abcam) Positive BCL-2 Oncoprotein (124, [place]) Positive Ki67 (MIB-1) (K2, Leica) Greater than 95% of cells in cycle Cyclin D1(SP4-R, [place]) Negative SAPPHIRE JOSE ([id number], Leica) Negative. DIAGNOSTICS: 11/28/22 ECHO after C#2 [...] undergo investigation with ultrasound. CT CAP at [facility], report and images have been [...] Jan 2023 - booked for 01/25/23 at [facility] Recommend COVID vaccine though he is aware that he may not have a robust response due to ongoing chemotherapy with B-cell depletion. He has already received influenza vaccine. Final PET week of Mar 05 at [facility] with appt 03/14/22 I discussed all of the above with the patient and all of his questions were answered. Support and counseling as appropriate. Copy Frederick Meade MD documented in this encounter Plan of Treatment Upcoming Encounters Date Type Department Care Team (Late st Contact Info) Description 11/21/2023 9:30 AM EDT Office Visit Hematology/Oncology at [address] [address] Adrianne Ramon MD [facility] DR [place] [address] Yael Merlos, KARLA [facility] [place] [address] 11/21/2023 10:00 AM EDT Infusion Hematology Oncology at [address] [phone] 11/23/2023 11:00 AM EDT Office Visit Hematology [place] [address] Reynold Proctor MD [facility] [address] 11/23/2023 1:00 PM EDT Appointment Hematology [place] [address] 11/23/2023 2:00 PM EDT Office Visit Hematology [place] [phone] Micha Givens Jr., MD [facility] [place] [address] 11/23/2023 3:30 PM EDT Hospital Encounter MRI at [facility] [place] [address] Micha Givens Jr., MD [facility] [place] [address] documented as of this encounter Procedures Procedure [...] 3.30(L) Hemoglobin 9.9(L) Hematocrit 31.2(L) Platelet 369 Neutrophil Absolute (ANC) - Automated 5.91 Blood 01/10/2023 Historical Provider HEMATOLOGY ORDERA BLES documented in this encounter Visit Diagnoses Diagnosis 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
--- OUTSIDE RECORDS SUMMARY | 2023-11-16 06:30 | XMS_ITS | Encounter Summary ---
Author Organization [facility] [place] [address] Care Team Providers Care Automotive Glass Technician Name Role Phone Frederick Meade MD Primary Care Provider +1 -[phone] Reason for Visit * Reason Comments Chemotherapy [...] [facility] [address] [place] [address] [facility] [address] [place] [address] Referral ID Status Reason Start Date Expiration Date Visits Re quested Visits Authorized [id number] Closed 10/11/2022 10/11/2023 1 100 Encounter Details Date Type Department Care Team (Late st Contact Info) Description 11/29/2022 9:30 AM EDT Infusion Hematology Oncology at [address] [address] Diffuse large B-cell lymphoma of [...] treatment. OBJECTIVE LAB DATA: completed 11/29 at [facility] Pre administration: Chemotherapy orders independently verified for [...] AM EDT Office Visit Hematology/Oncology at [address] [address] Adrianne Ramon MD [facility] DR [place] [address] Yael Merlos APRN [facility] [address] [place] [address] 11/21/2023 10:00 AM EDT Infusion Hematology Oncology at [address] [address] 11/23/2023 11:00 AM EDT Office Visit Hematology [place] [address] Reynold Proctor MD [facility] [place] [address] 11/23/2023 1:00 PM EDT Appointment Hematology [place] [address] 11/23/2023 2:00 PM EDT Office Visit Hematology [place] [phone] Micha Givens Jr., MD [facility] DR [place] [address] 11/23/2023 3:30 PM EDT Hospital [place] [address] Micha Givens Jr., MD [facility] [place] [address] documented as of this encounter Visit Diagnoses [...] 2 minutes is a recommendation from the blower room attendant. Administer prior to chemotherapy., Routine Given 11/29/2022 [...] (IV) Procedure: Accessing Implanted Vascular Access Devices (764) procedure and/or Intravenous (IV) Job Aid: Adult Flushing & Catheter Care (6123) job aid for additional information regarding guidelines [...] Job Aid: Adult Flushing & Catheter Care (2027) job aid for additional information regarding guidelines [...] mL/hr documented in this encounter Care Teams Automotive Glass Technician Relationship Specialty Start Date End Date Frederick Meade MD [address] [place] [address] PCP - General Family Medicine 11/29/17 documented as of this encounter
--- OUTSIDE RECORDS SUMMARY | 2023-11-16 06:31 | XMS_ITS | Encounter Summary ---
[place] [address] Care Team Providers Care Apron Operator Name Role Phone Frederick Meade MD Primary Care Provider [phone] [phone] Encounter Details Date Type Department Care Team (Late st Contact Info) Description 10/24/2022 Telephone [place]ematology [place] [phone] Castro Jimenez MD [facility] HEMATOLOGY/[place] [address] Social History Tobacco Use Types Packs/Day Years [...] CC: [facility] Castro Jimenez MD [facility] Hematology Oncology Fellow Page [phone] documented in this encounter Plan of Treatment Upcoming Encounters Date Type Department Care Team (Late st Contact Info) Description 11/21/2023 9:30 AM EDT Office Visit Hematology/Oncology at [address] [address] Adrianne Ramon MD [facility] DR HEMATOLOGY [place] [address] Yael Merlos, INVESTIGATIVE ASSISTANT [facility] DR HEMATOLOGY [place] [address] 11/21/2023 10:00 AM EDT Infusion Hematology Oncology at [address] [address] 11/23/2023 11:00 AM EDT Office Visit Hematology and Oncology at [address] Reynold Proctor MD [facility] [place] [address] 11/23/2023 1:00 PM EDT Appointment Hematology and Oncology at [place] [address] 11/23/2023 2:00 PM EDT Office Visit Hematology and Oncology at [address] Micha Givens Jr., MD [facility] DR HEMATOLOGY [place] [address] 11/23/2023 3:30 PM EDT [place] [address] Micha Givens Jr., MD [facility] DR HEMATOLOGY [place] [address] documented as of this encounter Visit Diagnoses Not on filedocumented in this encounter Care Teams Apron Operator Relationship Specialty Start Date End Date Frederick Meade MD [address] [place] [address] PCP - General Family Medicine 11/29/17 documented as of this encounter
--- OUTSIDE RECORDS SUMMARY | 2023-11-16 06:31 | XMS_ITS | Encounter Summary ---
Author Organization [facility] [place] [address] Care Team Providers Care Shroudman Name Role Phone Frederick Meade MD Primary Care Provider +1 -[phone] Reason for Visit * Reason Comments Chemotherapy Teaching Encounter Details Date Type Department Care Team (Late st Contact Info) Description 10/18/2022 8:00 AM EDT Office Visit Hematology/Oncology at [address] [address] Adrianne Ramon MD [facility] DR [place] [address] Yael Merlos, KNOTTING MACHINE OPERATOR PORTABLE [facility] [place] [address] Diffuse large B-cell lymphoma of lymph nodes [...] this encounter Progress Notes * Yael Merlos, KNOTTING MACHINE OPERATOR PORTABLE - 10/18/2022 8:00 AM EDT PATIENT ID: [...] of infection, cataracts and osteoporosis. Medications: please picking crew supervisor the following prescriptions before you start treatment [...] further questions or concerns. Yael Merlos, MSN, KNOTTING MACHINE OPERATOR PORTABLE Nurse Practitioner Section of Hematology [facility] Cc: Frederick Meade MD documented in this encounter Plan of Treatment Upcoming Encounters Date Type Department Care Team (Late st Contact Info) Description 11/21/2023 9:30 AM EDT Office Visit Hematology/Oncology at [address] [address] Adrianne Ramon MD [facility] [address] [place] [address] Yael Merlos APRN [facility] [address] [place] [address] 11/21/2023 10:00 AM EDT Infusion Hematology Oncology at [address] [address] 11/23/2023 11:00 AM EDT Office Visit Hematology [place] [address] Reynold Proctor MD [facility] [place] [address] 11/23/2023 1:00 PM EDT Appointment Hematology [place] [address] 11/23/2023 2:00 PM EDT Office Visit Hematology [place] [address] Micha Givens Jr., MD [facility] [address] [place] [address] 11/23/2023 3:30 PM EDT Hospital [place] [address] Micha Givens Jr., MD [facility] [place] [address] documented as of this encounter Visit Diagnoses Diagnosis 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
--- OUTSIDE RECORDS SUMMARY | 2023-11-16 06:31 | XMS_ITS | Encounter Summary ---
Author Organization [facility] Address [facility] [place] [address] Care Team Providers Care Inspector Receiving Name Role Phone Frederick Meade MD Primary Care Provider +1 -[phone] Reason for Visit * Reason Onset Date Comments Other 11/15/2022 To ER Encounter Details Date Type Department Care Team (Late st Contact Info) Description 11/15/2022 Telephone Hematology/Oncology at [address] [address] Polly Orellana RN Other (To [...] Ramon ask he go to ER. Called [facility] Er and gave report to RN. Recent notes faxed. documented in this encounter Plan of Treatment Upcoming Encounters Date Type Department Care Team (Late st Contact Info) Description 11/21/2023 9:30 AM EDT Office Visit Hematology/Oncology at [address] [phone] Adrianne Ramon MD [facility] [place] [address] Yael Merlos APRN [facility] HEMATOLOGY [place] [address] 11/21/2023 10:00 AM EDT Infusion Hematology Oncology at [address] [address] 11/23/2023 11:00 AM EDT Office Visit Hematology and Oncology at [place] [phone] Reynold Proctor MD [facility] [place] [address] 11/23/2023 1:00 PM EDT Appointment Hematology and Oncology at [place] [phone] 11/23/2023 2:00 PM EDT Office Visit Hematology and Oncology at [address] Micha Givens Jr., MD [facility] [place] [address] 11/23/2023 3:30 PM EDT Hospital Encounter MRI at [place] [phone] Micha Givens Jr., MD [facility] [place] [address] documented as of this encounter Visit Diagnoses Not on filedocumented in this encounter Care Teams Inspector Receiving Relationship Specialty Start Date End Date Frederick Meade MD [address] [place] [address] PCP - General Family Medicine 11/29/17 documented as of this encounter
--- OUTSIDE RECORDS SUMMARY | 2023-11-16 06:31 | XMS_ITS | Encounter Summary ---
Author [facility] [place] [address] Care Team Providers Care Can Slider Name Role Phone Frederick Meade MD Primary Care Provider +1 -[phone] Encounter Details Date Type Department Care Team (Late st Contact Info) Description 11/16/2022 Telephone Hematology/Oncology at [address] [address] Brenda Priest, RN Social History [...] Call: Received call from OSCAR Marcelo at [facility] notifying us that patient was admitted [facility] yesterday and is positive for C-Diff. Dr. Ramon and Yael Merlos APRN updated via this note. documented in this encounter Plan of Treatment Upcoming Encounters Date Type Department Care Team (Late st Contact Info) Description 11/21/2023 9:30 AM EDT Office Visit Hematology/Oncology at [address] [address] Adrianne Ramon MD [facility] [place] [address] Yael Merlos APRN [facility] [place] [address] 11/21/2023 10:00 AM EDT Infusion Hematology Oncology at [address] [address] 11/23/2023 11:00 AM EDT Office Visit Hematology [place] [address] Reynold Proctor MD [facility] [place] [address] 11/23/2023 1:00 PM EDT Appointment Hematology and Oncology at [place] [phone] 11/23/2023 2:00 PM EDT Office Visit Hematology [place] [address] Micha Givens Jr., MD [facility] [address] [place] [address] 11/23/2023 3:30 PM EDT Hospital Encounter MRI at [place] [phone] Micha Givens Jr., MD [facility] [address] [place] [address] documented as of this encounter Visit Diagnoses Not on filedocumented in this encounter Care Teams Can Slider Relationship Specialty Start Date End Date Frederick Meade MD [address] [place] [address] PCP - General Family Medicine 11/29/17 documented as of this encounter
--- OUTSIDE RECORDS SUMMARY | 2023-11-16 06:31 | XMS_ITS | Encounter Summary ---
Author Organization [facility] [place] [address] Care Team Providers Care Car Sales Representative Name Role Phone Frederick Meade MD Primary Care Provider [phone] [phone] Encounter Details Date Type Department Care Team (Late st Contact Info) Description 11/08/2022 9:30 AM EDT Office Visit Hematology/Oncology at [address] [phone] Adrianne Mera MD [facility] [address] [place] [address] Yael Merlos APRN [facility] [place] [address] Diffuse large B-cell lymphoma of lymph nodes [...] - 11/08/2022 9:30 AM EDT [place] [address] HEMATOLOGY PATIENT EVALUATION Patient Active Problem List [...] [facility] and when to [facility]. No beds so sent to [facility] for [address] [...] x7 days with nice response. Pathology from [facility] reports large B-cell lymphoma. Double expresser. FISH for translocations are pending. Tongue swelling. No wt loss. Eating and drinking OK. No fevers, infections, No NS. Pain in neck.Prednisone 60mg daily X 7 days. I feel great on prednisone last day of prednisone is today Took iron supplements per PCP - unclear cause. - last COLO at [facility] was 01/17/2012. Cheo returns today with [...] needle of cervical LN. FISH from [place] No MYCrearrangement and no fusion of MYC [...] only 1 biologic. Son Cheo Freire. Enjoys [employer], [employer], race car, [employer]. [employer]. 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 Not a . ETOH: 1-3 beers per week Smoking: Quit 1985. Approximately 13-lgba-wspu history Vaping or electronic cigarettes: denies Chewing [...] and BCL-2 protein (Double Expressor.) Flow cytometry ([id number]) supports this interpretation. FISH from [place] No MYC rearrangement and no fusion of MYC and IGH was observed, CD3 (SP7, Thermo Scientific) Background T-cells CD20 (L26, [place]) diffusely positive in Neoplastic B-cells PAX-5 (1EW, Leica) diffusely positive in Neoplastic B-cells CD10 (SP67, [place]) Negative BCL-6 (G/191E/A8, [place]) Positive MUM-1 (MUM1p, Dako) Positive Myc (Y69, Abcam) Positive BCL-2 Oncoprotein (124, [place]) Positive Ki67 (MIB-1) (K2, Leica) Greater than 95% of cells in cycle Cyclin D1(SP4-R, [place]) Negative SAPPHIRE JOSE (HSM5345-L, Leica) Negative. DIAGNOSTICS: 11/06/22 ECHO after C#1 [...] undergo investigation with ultrasound. CT CAP at [facility], report and images have been [...] ejection fraction closely. He saw Dr. Matthew Brabosa earlier in the week. Ejection fraction on echocardiogram following cycle #1 was stable at 52%.. Dr Barbosa recommended no changes in therapy. We will plan echocardiogram every 2 cycles. Next echo is due following cycle #3 (week 12/04 or 12/13) Prednisone -100 mg p.o. daily on 8/26 and 10/15 only as a bridge to definitive chemotherapy. Furtherprednisone prescriptions will be given by GEOPHYSICAL MANAGER, during PTI chemotherapy teaching Suspected MEHNAZ - Hgb drop 3gm in last 2 weeks. Taking oral iron 2 tabs per day. 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 No COLO in last 10 years. [...] in 3 weeks. ECHO following C#3 at [facility] - week of Dec 04 or Dec 11 I discussed all of the above with the patient and all of his questions were answered. Support and counseling as appropriate. This note was written or modified using [employer] voice recognition software. The final note was screened for hat model errors. Please excuse any remaining errors. Addendum staff message from Matthew Barbosa, Cardiology: Adrianne; Thanks for the message; will see if we can see him up in [place]. On review of his CT, he has [...] AM EDT Office Visit Hematology/Oncology at [address] [phone] Adrianne Mera MD [facility] [address] [place] [address] Yael Merlos APRN [facility] [place] [address] 11/21/2023 10:00 AM EDT Infusion Hematology Oncology at [address] [phone] 11/23/2023 11:00 AM EDT Office Visit Hematology [place] [phone] Reynold Proctor MD [facility] [place] [address] 11/23/2023 1:00 PM EDT Appointment Hematology [place] [address] 11/23/2023 2:00 PM EDT Office Visit Hematology [place] [phone] Micha Givens Jr., MD [facility] [place] [address] 11/23/2023 3:30 PM EDT Hospital [place] [phone] Micha Givens Jr., MD [facility] [address] [place] [address] documented as of this encounter Procedures Procedure [...] 9.56 Hemoglobin 10.6 Hematocrit 32.0 Platelet 458 Neutrophil Absolute (ANC) - Automated 7 Blood 11/08/2022 Historical Provider HEMATOLOGY ORDERA BLES documented in this encounter Visit Diagnoses Diagnosis 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
--- OUTSIDE RECORDS SUMMARY | 2023-11-16 06:31 | XMS_ITS | Encounter Summary ---
Author Organization [facility] [place] [address] Care Team Providers Care Air Filler Name Role Phone Frederick Meade MD Primary Care Provider [phone] Encounter Details Date Type Department Care Team [...] AM EDT Office Visit Hematology/Oncology at [address] [address] Adrianne Ramon MD [facility] [place] [address] Yael Merlos APRN [facility] [place] [address] 11/21/2023 10:00 AM EDT Infusion Hematology Oncology at [address] [address] 11/23/2023 11:00 AM EDT Office Visit Hematology [place] [phone] Reynold Proctor MD [facility] [place] [address] 11/23/2023 1:00 PM EDT Appointment Hematology [place] [phone] 11/23/2023 2:00 PM EDT Office Visit Hematology [place] [phone] Micha Givens Jr., MD [facility] [place] [address] 11/23/2023 3:30 PM EDT Hospital [place] [address] Micha Givens Jr., MD [facility] [place] [address] documented as of this encounter Visit Diagnoses Not on filedocumented in this encounter Care Teams Air Filler Relationship Specialty Start Date End Date Frederick Meade MD [address] [place] [address] [address] [place] [address] PCP - General Family Medicine 11/29/17 documented as of this encounter
--- OUTSIDE RECORDS SUMMARY | 2023-11-16 06:31 | XMS_ITS | Encounter Summary ---
Author Organization [place] [address] Care Team Providers Care Pump Tender Name Role Phone Frederick Meade MD Primary Care Provider [phone] [phone] Encounter Details Date Type Department Care Team (Late st Contact Info) Description 11/15/2022 12:30 PM EDT Office Visit Hematology/Oncology at [address] [address] Adrianne Ramon MD [facility] DR HEMATOLOGY [place] [address] Yael Merlos APRN [facility] DR HEMATOLOGY [place] [address] Diffuse large B-cell lymphoma of lymph nodes [...] AM EDT Office Visit Hematology/Oncology at [address] [address] Adrianne Ramon MD [facility] DR HEMATOLOGY [place] [address] Yael Merlos APRN [facility] DR HEMATOLOGY [place] [address] 11/21/2023 10:00 AM EDT Infusion Hematology Oncology at [address] [phone] 11/23/2023 11:00 AM EDT Office Visit Hematology [place] [phone] Reynold Proctor MD [facility] [place] [address] 11/23/2023 1:00 PM EDT Appointment Hematology [place] [phone] 11/23/2023 2:00 PM EDT Office Visit [place]ematology [place] [phone] Micha Givens Jr., MD [facility] HEMATOLOGY [place] [address] 11/23/2023 3:30 PM EDT [place] [address] Micha Givens Jr., MD [facility] DR HEMATOLOGY [place] [address] documented as of this encounter Procedures Procedure [...] 6.41 Hemoglobin 9.7 Hematocrit 28.6 Platelet 154 Neutrophil Absolute (ANC) - Automated 5.32 Blood 11/15/2022 Historical Provider HEMATOLOGY ORDERA BLES documented in this encounter Visit Diagnoses Diagnosis 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
--- OUTSIDE RECORDS SUMMARY | 2023-11-16 06:31 | XMS_ITS | Encounter Summary ---
Author Organization [facility] Address [facility] [place] [address] Care Team Providers Care Inventory Management Specialist Name Role Phone Frederick Meade MD Primary Care Provider [phone] [phone] Reason for Visit * Consultation (Urgent) - Closed Specialty Diagnoses / Procedures Referred By Contac t Referred To Contact Cardiology Diagnoses Diffuse large B-cell lymphoma of lymph nodes of multiple regions CARD-ONC Pt w/o cardiac hx. New lymphoma. Needs anthracycline. Echo w/ EF 49% & mild global hypokinesis. Please eval for ongoing anthracycline safety. Adrianne Ramon MD [facility] HEMATOLOGY [place] [address] [facility] [place] [address] Referral ID Status Reason Start Date Expiration Date V isits Requested Visits Authorized [id number] Closed Consult, Test & Treat 10/12/2022 10/12/2023 1 1 Encounter Details Date Type Department Care Team (Latest Contact Info) Description 11/06/2022 2:10 PM EDT Office Visit Cardiology at [place] [phone] [facility] [place] [address] Abnormal echocardiogram Social History Tobacco Use Types [...] from the original note were not included. [facility] Mike, CHAD [address] CARDIO-ONCOLOGY CONSULTATION Cheo Santos Teressagisell Primary Care [...] Office Visit from 10/18/2022 in Hematology/Oncology at [facility] Weight 93 kg (205 lb) 1 [...] AM EDT Office Visit Hematology/Oncology at [address] [phone] [facility] HEMATOLOGY [place] [address] Yael Merlos, USABILITY SPECIALIST [facility] HEMATOLOGY [place] [address] 11/21/2023 10:00 AM EDT Infusion Hematology Oncology at [address] [phone] 11/23/2023 11:00 AM EDT Office Visit Hematology and Oncology at [place] [phone] [facility] [place] [address] 11/23/2023 1:00 PM EDT Appointment Hematology [place] [address] 11/23/2023 2:00 PM EDT Office Visit Hematology [place] [phone] Micha Givens Jr., MD [facility] HEMATOLOGY [place] [address] 11/23/2023 3:30 PM EDT Hospital [place] [address] Micha Givens Jr., MD [facility] HEMATOLOGY [place] [address] Scheduled Referrals Name Type Priority Associated Diagnoses Order Schedule Referral to Cardiology Outpatient Referral Urgent Diffuse large B-cell lymphoma of lymph nodes of multiple regions Ordered: 10/12/2022 documented as of this encounter Visit Diagnoses Diagnosis Abnormal echocardiogram Nonspecific (abnormal) findings on radiological and other examination of other intrathoracic organs documented in this encounter Care Teams Inventory Management Specialist Relationship Specialty Start Date End Date Frederick Meade MD [address] [address] PCP - General Family Medicine 11/29/17 documented as of this encounter
--- OUTSIDE RECORDS SUMMARY | 2023-11-16 06:31 | XMS_ITS | Encounter Summary ---
[place] [address] Care Team Providers Care Solar Project Manager Name Role Phone Frederick Meade MD Primary Care Provider [phone] [phone] Encounter Details Date Type Department Care Team (Late st Contact Info) Description 10/17/2022 Notes Only Hematology [place] [phone] Bailey Moran, RN Social History Tobacco Use [...] AM EDT Office Visit Hematology/Oncology at [address] [address] Adrianne Ramon MD [facility] HEMATOLOGY [place] [address] Yael Merlos APRN [facility] [place] [address] 11/21/2023 10:00 AM EDT Infusion Hematology Oncology at [address] [address] 11/23/2023 11:00 AM EDT Office Visit Hematology [place] [address] Reynold Proctor MD [facility] [place] [place] [address] 11/23/2023 1:00 PM EDT Appointment Hematology and Oncology at [place] [address] 11/23/2023 2:00 PM EDT Office Visit Hematology and Oncology at [place] [phone] Micha Givens Jr., MD [facility] DR HEMATOLOGY [place] [address] 11/23/2023 3:30 PM EDT Hospital Encounter MRI at [place] [phone] Micha Givens Jr., MD [facility] DR [place]AT[place] [address] documented as of this encounter Visit Diagnoses Not on filedocumented in this encounter Care Teams Solar Project Manager Relationship Specialty Start Date End Date Frederick Meade MD [address] [place] [address] PCP - General Family Medicine 11/29/17 documented as of this encounter
--- OUTSIDE RECORDS SUMMARY | 2023-11-16 06:31 | XMS_ITS | Encounter Summary ---
[place] [address] Care Team Providers Care Prosthodontist/Educator Name Role Phone Frederick Meade MD Primary Care Provider [phone] [phone] Reason for Referral * Diagnostic Test (Routine) - Closed Specialty Diagnoses / Procedures Referred By Contac t Referred To Contact Cardiology Diagnoses Diffuse large B-cell lymphoma of lymph nodes of multiple regions Procedures Echocardiogram Transthoracic Adrianne Mera MD [facility] DR [place] [address] [facility] [place] [address] Referral ID Status Reason Start Date Expiration Date V isits Requested Visits Authorized [id number] Closed Specialty Service Requested 10/12/2022 10/12/2023 1 1 Reason for Visit * Diagnostic Test (Routine) - Closed Specialty Diagnoses / Procedures Referred By Contac t Referred To Contact Cardiology Diagnoses Diffuse large B-cell lymphoma of lymph nodes of multiple regions Procedures Echocardiogram Transthoracic Adrianne Mera MD [facility] DR [place] [address] [facility] [place] [address] Referral ID Status Reason Start Date Expiration Date V isits Requested Visits Authorized [id number] Closed Specialty Service Requested 10/12/2022 10/12/2023 1 1 Encounter Details Date Type Department Care Team (Late st Contact Info) Description 11/06/2022 10:45 AM EDT - 11/06/2022 11:59 PM EDT Hospital Encounter Non-Invasive Cardiology Lab [facility] [place] [address] Adrianne Mera MD [facility] DR [place] [address] Diffuse large B-cell lymphoma of lymph nodes [...] AM EDT Office Visit Hematology/Oncology at [address] [address] Adrianne Mera MD [facility] DR [place] [address] Yael Merlos APRN [facility] DR [place] [address] 11/21/2023 10:00 AM EDT Infusion Hematology Oncology at [address] [address] 11/23/2023 11:00 AM EDT Office Visit Hematology and Oncology at [place] [phone] Reynold Proctor MD [facility] [place] [address] 11/23/2023 1:00 PM EDT Appointment Hematology [place] [phone] 11/23/2023 2:00 PM EDT Office Visit Hematology and Oncology at [place] [phone] Micha Givens Jr., MD [facility] DR [place] [address] 11/23/2023 3:30 PM EDT Hospital [place] [address] Micha Givens Jr., MD [facility] DR [place] [address] documented as of this encounter Procedures Procedure [...] 1950 ? Height: 169 cm ? Account: [id number] Age: 72 yrs ? Weight: 93 kg Gender: Male ?BSA: 2.0 m2 Ordering Physician: ADRIANNE MERA Referring Physician: ADRIANNE MERA Performed By: SHAHANA Fernando Reason For Study: Lymphoma Exam Location: [facility]. Interpretation Summary LV systolic function appears to be low-normal. LV ejection fraction appears to be 52%. Global longitudinal strain is measured at -16.6 %. (GE). There are no segmental wall motion abnormalities. Normal right ventricle. No significant valvular abnormalities. Trivial pericardial effusion. On direct comparison to prior echo dated 10/12/2022, the LV function has slightly improved. Procedure Limited - 32014. Left ventricular strain. Satisfactory quality. There is [...] Location: : 1950 Height: 169 cm Account: [id number] Age: 72 yrs Weight: 93 kg Gender: Male BSA: 2.0 m2 Ordering Physician: ADRIANNE MERA Referring Physician: ADRIANNE MERA Performed By: SHAHANA Fernando Reason For Study: Lymphoma Exam Location: [facility]. Interpretation Summary LV systolic function appears to be low-normal. LV ejection fractionappears to be 52%. Global longitudinal strain is measured at -16.6 %. (GE). There areno segmental wall motion abnormalities. Normal right ventricle. No significant valvular abnormalities. Trivial pericardial effusion. On direct comparison to prior echo dated 10/12/2022, the LV function hasslightly improved. Procedure Limited - 32752. Left ventricular strain. Satisfactory quality. There isnormal [...] regions documented in this encounter Care Teams Prosthodontist/Educator Relationship Specialty Start Date End Date Frederick Meade MD [address] [place] [address] PCP - General Family Medicine 11/29/17 documented as of this encounter
--- OUTSIDE RECORDS SUMMARY | 2023-11-16 06:31 | XMS_ITS | Encounter Summary ---
Author Organization [facility] [place] [address] Care Team Providers Care Careers Counsellor Name Role Phone Frederick Meade MD Primary Care Provider [phone] [phone] Encounter Details Date Type Department Care Team (Late st Contact Info) Description 10/20/2022 Telephone Hematology/Oncology at [address] [address] Maeve Nicole, RN Social History [...] Education provided: SEE ABOVE Plan: Reinforced to patient/care-in home caregiver to call facility 11/09 with any new/worsening signs and symptoms orconcerns or questions. Phone number provided. Pt verbalized understanding and is in agreement with plan. documented in this encounter Plan of Treatment Upcoming Encounters Date Type Department Care Team (Late st Contact Info) Description 11/21/2023 9:30 AM EDT Office Visit Hematology/Oncology at [address] [phone] Adrianne Ramon MD [facility] DR [place] [address] Yael Merlos APRN [facility] DR [place] [address] 11/21/2023 10:00 AM EDT Infusion Hematology Oncology at [address] [phone] 11/23/2023 11:00 AM EDT Office Visit Hematology [place] [phone] Reynold Proctor MD [facility] [place] [address] 11/23/2023 1:00 PM EDT Appointment Hematology [place] [phone] 11/23/2023 2:00 PM EDT Office Visit Hematology [place] [address] Micha Givens Jr., MD [facility] [place] [address] 11/23/2023 3:30 PM EDT Hospital [place] [address] Micha Givens Jr., MD [facility] DR [place] [address] documented as of this encounter Visit Diagnoses Not on filedocumented in this encounter Care Teams Careers Counsellor Relationship Specialty Start Date End Date Frederick Meade MD [address] [place] [address] PCP - General Family Medicine 11/29/17 documented as of this encounter
--- OUTSIDE RECORDS SUMMARY | 2023-11-16 06:31 | XMS_ITS | Encounter Summary ---
Author Organization [place] [address] Care Team Providers Care Director Of Knowledge Management Name Role Phone Frederick Meade MD Primary Care Provider [phone] Reason for Visit * Treatment/Therapy Plan Authorization [...] TC CYCLOPHOSPHAMIDE, 100MG (CYTOXAN) Adrianne Ramon MD [facility] [address] HEMATOLOGY [place] [address] [facility] Infusion [address] [place] [address] Referral ID Status Reason Start Date Expiration Date Visits Re quested Visits Authorized [id number] Closed 10/11/2022 10/11/2023 1 100 Encounter Details Date Type Department Care Team (Latest Contact Info) Description 10/17/2022 11:16 AM EDT - 10/17/2022 11:59 PM EDT Hospital Encounter Hematology [place] [address] Diffuse large B-cell lymphoma of [...] AM EDT Office Visit Hematology/Oncology at [address] [phone] Adrianne Ramon MD [facility] [address] HEMATOLOGY [place] [address] Yael Merlos APRN [facility] [address] HEMATOLOGY [place] [address] 11/21/2023 10:00 AM EDT Infusion Hematology Oncology at [address] [phone] 11/23/2023 11:00 AM EDT Office Visit Hematology and Oncology at [place] [phone] Reynold Proctor MD [facility] [place] [address] 11/23/2023 1:00 PM EDT Appointment Hematology [place] [phone] 11/23/2023 2:00 PM EDT Office Visit Hematology [place] [phone] Micha Givens Jr., MD [facility] HEMATOLOGY [place] [address] 11/23/2023 3:30 PM EDT [place] [phone] Micha Givens Jr., MD [facility] HEMATOLOGY [place] [address] Scheduled Orders Name Type Priority Associated Diagnoses [...] of multiple regions HIV SCREEN, 4TH GENERATION ([facility]/CGP/APD/NLH) STAT 10/17/2022 11:45 AM EDT Diffuse large [...] Peripheral Blood (10/17/2022 11:45 AM EDT) Pathologist [facility] Plat estimate Normal [facility] RBC Morphology Abnormal [facility] Ovalocytes 1-5 /HPF [facility] Tear Cell 1-5 /HPF [facility] Blood 10/17/2022 11:4 5 AM EDT 10/17/2022 12:08 PM EDT Narrative Resulting Agency Comment Spec In Lab Adrianne Ramon MD HEMATOLOGY ORDER DUONG [facility] [place] [address] * (ABNORMAL) Differential, Automated (10/17/2022 11:45 AM EDT) Neutrophil % 68.0 % [facility] Neutrophil Absolute 7.17(H) 1.70 - 6.10 x10(3)/mc L [facility] Lymph % 13.6 % [facility] Lymphocytes Abs 1.4 0.9 - 3.2 x10(3)/[facility] Monocyte % 14.8 % [facility] Monocyte Abs 1.6(H) 0.3 - 0.9 x10(3)/[facility] Eos % 2.8 % [facility] Eosinophils Abs 0.3 0.0 - 0.4 x10(3)/[facility] Basophil % 0.3 % [facility] Baso Absolute 0.0 0.0 - 0.1 x10(3)/[facility] LAB[facility] Immature Gran % 0.50 % [facility] Comment: Immature granulocytes(IG's)percentage and absolute count will include metamyelocytes, myelocytes, and promyelocytes. Blood smears from CBCs yielding IG's will be scanned manually for concordance. If this scan disagrees with the automated IG or if promyelocytes are noted, a manual differential will be performed. Immature Gran Absolute 0.05(H) 0.00 - 0.04 x10(3)/[facility] Blood 10/17/2022 11:4 5 AM EDT 10/17/2022 12:08 PM EDT Narrative Resulting Agency Comment Spec In Lab Adrianne Ramon MD HEMATOLOGY ORDER DUONG [facility] [place] [address] * (ABNORMAL) Hemogram (10/17/2022 11:45 AM EDT) White Blood Cell 10.6(H) 4.0 - 9.5 x10(3)/[facility] Red Blood Cell 3.68(L) 4.58 - 5.54 x10(6)/[facility] Hemoglobin 11.3(L) 13.7 - 16.5 g/dL [facility] Hematocrit 33.8(L) 40.5 - 48.5 % [facility] Mean Cell Volume 91.8 82.9 - 93.1 fL [facility] Mean Cell Hemoglobin 30.7 27.5 - 32.1 pg [facility] Mean Cell Hemoglobin Concentration 33.4 32.0 - 35.7 g/dL [facility] Platelet 261 145 - 357 x10(3)/mc L [facility] RDW Standard Deviation 49.5(H) 36.0 - 45.0 fL [facility] RDW coefficient of variation 14.6(H) 11.4 - 13.8 % [facility] Mean Platelet Volume 9.4 7.6 - 12.9 fL [facility] NRBC% auto 0.0 % [facility] NRBC Absolute 0.000 0.000 - 0.000 x10(3)/mc L [facility] Blood 10/17/2022 11:4 5 AM EDT 10/17/2022 12:08 PM EDT Narrative Resulting Agency Comment Spec In Lab Adrianne Ramon MD HEMATOLOGY ORDER DUONG Performing Organization Address City/[facility]/ZIP Co de Phone Number [facility] [place] [address] * Hepatitis C Antibody (10/17/2022 11:45 AM EDT) Hepatitis C Antibody Negative Negative [facility] Blood 10/17/2022 11:4 5 AM EDT 10/17/2022 12:08 PM EDT Narrative Resulting Agency Comment Spec In Lab Adrianne Ramon MD CHEMISTRY ORDERA BLES Performing Organization Address City/[facility]/ZIP Co de Phone Number [facility] [place] [address] * HIV Screen, 4th Generation ([facility]/CGP/APD/NLH) (10/17/2022 11:45 AM EDT) HIV Ab/Ag Screen Negative Negative [facility] Comment: This 4th Generation HIV [...] HIV Comment Low Risk of HIV Infection [facility] Blood 10/17/2022 11:4 5 AM EDT 10/17/2022 12:08 PM EDT Narrative Resulting Agency Comment Spec In Lab Adrianne Ramon MD CHEMISTRY ORDERA BLES [facility] [place] [address] * Hepatitis B Surface Antibody (10/17/2022 11:45 AM EDT) Hepatitis B Surface Antibody, Quantitative <3.5 IU/L [facility] Comment: HepB Surface Ab Quant: Unvaccinated: < 8.5 IU/L Vaccinated: >= 11.5 IU/L Hepatitis B Surface Antibody Negative [facility] Comment: Patient is presumed to be not vaccinated or immune to HBV infection. Expected Results: Vaccinated: Positive Unvaccinated: Negative Blood 10/17/2022 11:4 5 AM EDT 10/17/2022 12:08 PM EDT Narrative Resulting Agency Comment Spec In Lab Adrianne Ramon MD CHEMISTRY ORDERA BLES Performing Organization Address City/[facility]/ZIP Co de Phone Number [facility] [place] [address] * Hepatitis B Surface Antigen (10/17/2022 11:45 AM EDT) Hepatitis B Surface Antigen Negative Negative [facility] Blood 10/17/2022 11:4 5 AM EDT 10/17/2022 12:08 PM EDT Narrative Resulting Agency Comment Spec In Lab Adrianne Ramon MD CHEMISTRY ORDERA BLES [facility] [place] [address] * Hepatitis B Core Antibody, Total (10/17/2022 11:45 AM EDT) Hepatitis B Core Antibody Negative Negative [facility] Blood 10/17/2022 11:4 5 AM EDT 10/17/2022 12:08 PM EDT Narrative Resulting Agency Comment Spec In Lab Adrianne Ramon MD CHEMISTRY ORDERA BLES [facility] [place] [address] * Uric acid (10/17/2022 11:45 AM EDT) Uric Acid 5.3 3.5 - 8.5 mg/dL [facility] Blood 10/17/2022 11:4 5 AM EDT 10/17/2022 12:08 PM EDT Narrative Resulting Agency Comment Spec In Lab Adrianne Ramon MD CHEMISTRY ORDERA BLES Performing Organization Address City/[facility] Co de Phone Number [facility] [place] [address] * Phosphorus (10/17/2022 11:45 AM EDT) Phosphorus 3.2 2.5 - 4.5 mg/dL [facility] Blood 10/17/2022 11:4 5 AM EDT 10/17/2022 12:08 PM EDT Narrative Resulting Agency Comment Spec In Lab Adrianne Ramon MD CHEMISTRY ORDERA BLES Performing Organization Address City/[facility]/ZIP Co de Phone Number [facility] [place] [address] * Magnesium (10/17/2022 11:45 AM EDT) Magnesium 0.78 0.69 - 1.07 mmol/L [facility] Blood 10/17/2022 11:4 5 AM EDT 10/17/2022 12:08 PM EDT Narrative Resulting Agency Comment Spec In Lab Adrianne Ramon MD CHEMISTRY ORDERA BLES [facility] [place] [address] * (ABNORMAL) Lactate Dehydrogenase (10/17/2022 11:45 AM EDT) Lactate Dehydrogenase 251(H) 110 - 220 unit/L [facility] Blood 10/17/2022 11:4 5 AM EDT 10/17/2022 12:08 PM EDT Narrative Resulting Agency Comment Spec In Lab Adrianne Ramon MD CHEMISTRY ORDERA BLES [facility] [place] [address] * Comprehensive metabolic panel (non-fasting) (10/17/2022 11:45 AM EDT) Glucose 110 65 - 199 mg/dL [facility] Comment:Diabetes: >=200 mg/d L plus symptoms Blood Urea Nitrogen 17 10 - 20 mg/dL [facility] Creatinine 1.07 0.80 - 1.50 mg/dL [facility] Sodium 139 135 - 145 mmol/L [facility] Potassium 3.6 3.5 - 5.0 mmol/L [facility] Comment: Please note: ??Patients with WBC >100,000 may have falsely elevated Potassium levels. ??For accurate Potassium quantification in these patients send serum separator tube (gold top) for subsequent determinations. ??Contact the Clinical Chemistry Laboratory if there are any questions. Chloride 105 98 - 107 mmol/L [facility] Carbon Dioxide 23 22 - 31 mmol/L [facility] Anion Gap 11 5 - 15 mmol/L [facility] Calcium 8.9 8.5 - 10.5 mg/dL [facility] Protein, Total 6.2 6.1 - 8.0 g/dL [facility] Albumin 3.6 3.2 - 5.2 g/dL [facility] Aspartate Aminotransferase 14 0 - 39 unit/L [facility] Alanine Aminotransferase 27 0 - 55 unit/L [facility] Alkaline Phosphatase 103 40 - 130 unit/L [facility] Bilirubin, Total 0.4 0.2 - 1.3 mg/dL [facility] Est Glomerular Filtration Rate 73 >=60 mL/min/1. 73 m?? [facility] Comment: This patient's estimated [...] Lab Adrianne Ramon MD CHEMISTRY ORDERA BLES [facility] Organization Address City/State/ZIP Co de Phone Number [facility] [place] [address] documented in this encounter Visit Diagnoses Diagnosis [...] Job Aid: Adult Flushing & Catheter Care (9368) job aid for additional information regarding guidelines [...] Job Aid: Adult Flushing & Catheter Care (7385) job aid for additional information regarding guidelines and administration., Routine Given 10/17/2022 12:11 PM EDT 20 mLs documented in this encounter Care Teams Director Of Knowledge Management Relationship Specialty Start Date End Date Frederick Meade MD [address] [place] [address] PCP - General Family Medicine 11/29/17 documented as of this encounter
--- OUTSIDE RECORDS SUMMARY | 2023-11-16 06:31 | XMS_ITS | Encounter Summary ---
Author Organization Formerly [place] [address] Care Team Providers Care Ambulance Driver Paramedic Name Role Phone Frederick Meade MD Primary Care Provider [phone] Reason for Visit * Reason Comments Chemotherapy [...] CYCLOPHOSPHAMIDE, 100MG (CYTOXAN) Adrianne Ramon MD [facility] [place] [address] [facility] Infusion [address] [place] [address] Referral ID Status Reason Start Date Expiration Date Visits Re quested Visits Authorized [id number] Closed 10/11/2022 10/11/2023 1 100 Encounter Details Date Type Department Care Team (Late st Contact Info) Description 10/18/2022 9:00 AM EDT Infusion Hematology Oncology at [address] [phone] Diffuse large B-cell lymphoma [...] AM EDT Office Visit Hematology/Oncology at [address] [phone] Adrianne Ramon MD [facility] [place] [address] Yael Merlos APRN [facility] [place] [address] 11/21/2023 10:00 AM EDT Infusion Hematology Oncology at [address] [phone] 11/23/2023 11:00 AM EDT Office Visit [place]ology [place] [address] Reynold Proctor MD [facility] [place] [address] 11/23/2023 1:00 PM EDT Appointment H[place]ology [place] [address] 11/23/2023 2:00 PM EDT Office Visit [place]ology [place] [phone] Micha Givens Jr., MD [facility] [place] [address] 11/23/2023 3:30 PM EDT [place] [address] Micha Givens Jr., MD [facility] [place] [address] documented as of this encounter Visit Diagnoses [...] 2 minutes is a recommendation from the rehab specialist. Administer prior to chemotherapy., Routine Given 10/18/2022 [...] (IV) Procedure: Accessing Implanted Vascular Access Devices (354) procedure and/or Intravenous (IV) Job Aid: Adult Flushing & Catheter Care (8567) job aid for additional information regarding guidelines [...] mL/hr documented in this encounter Care Teams Ambulance Driver Paramedic Relationship Specialty Start Date End Date Frederick Meade MD [address] [place] [address] PCP - General Family Medicine 11/29/17 documented as of this encounter
--- OUTSIDE RECORDS SUMMARY | 2023-11-16 06:31 | XMS_ITS | Encounter Summary ---
Author Organization [facility] Address [facility] [place] [place] [address] Care Team Providers Care District Wire Chief Name Role Phone Frederick Meade MD Primary Care Provider [phone] Reason for Visit * Reason Onset Date Comments Follow-up 10/26/2022 Encounter Details Date Type Department Care Team (Late st Contact Info) Description 10/26/2022 Telephone Hematology/Oncology at [address] [phone] Tania Rosales, RN Follow-up Social [...] than yesterday. He is still admitted at [facility] and relays that the care plan is to keep him admitted until his WBC go up. Per the [facility] progress note, the goal is for an ANC greater than 500 and he is stable, labs this morning his ANC was 90. His next FUV here is 11/08. Cheo was thankful for the call. documented in this encounter Plan of Treatment Upcoming Encounters Date Type Department Care Team (Late st Contact Info) Description 11/21/2023 9:30 AM EDT Office Visit Hematology/Oncology at [address] [phone] Adrianne Ramon MD [facility] [place] [address] Yael Merlos APRN [facility] [place] [address] 11/21/2023 10:00 AM EDT Infusion Hematology Oncology at [address] [address] 11/23/2023 11:00 AM EDT Office Visit Hematology and Oncology at [place] [address] Reynold Proctor MD [facility] [place] [address] 11/23/2023 1:00 PM EDT Appointment Hematology and Oncology at [place] [address] 11/23/2023 2:00 PM EDT Office Visit Hematology and Oncology at [place] [address] Micha Givens Jr., MD [facility] [address] HEMATOLOGY [place] [address] 11/23/2023 3:30 PM EDT Hospital [place] [address] Micha Givens Jr., MD [facility] [address] HEMATOLOGY [place] [address] documented as of this encounter Visit Diagnoses Not on filedocumented in this encounter Care Teams District Wire Chief Relationship Specialty Start Date End Date Frederick Meade MD [address] [place] [address] PCP - General Family Medicine 11/29/17 documented as of this encounter
--- OUTSIDE RECORDS SUMMARY | 2023-11-16 06:31 | XMS_ITS | Encounter Summary ---
[place] [address] Care Team Providers Care Structural Worker Name Role Phone Frederick Meade MD Primary Care Provider [phone] Reason for Referral * Diagnostic Test (Routine) - Closed Specialty Diagnoses / Procedures Referred By Contac t Referred To Contact Radiology Diagnoses Diffuse large B-cell lymphoma of lymph nodes of multiple regions Procedures IR [facility] Adrianne Nino MD [facility] [address] [place] [address] [facility] [place] [address] Referral ID Status Reason Start Date Expiration Date V isits Requested Visits Authorized [id number] Closed Specialty Service Requested 10/11/2022 04/13/2024 1 1 Reason for Visit * Diagnostic Test (Routine) - Closed Specialty Diagnoses / Procedures Referred By Contac t Referred To Contact Radiology Diagnoses Diffuse large B-cell lymphoma of lymph nodes of multiple regions Procedures IR [facility] Adrianne Nino MD [facility] [address] [place] [address] [facility] [place] [address] Referral ID Status Reason Start Date Expiration Date V isits Requested Visits Authorized [id number] Closed Specialty Service Requested 10/11/2022 04/13/2024 1 1 Encounter Details Date Type Department Care Team (Late st Contact Info) Description 10/17/2022 7:32 AM EDT - 10/17/2022 11:15 AM EDT Hospital Encounter Radiology at [facility] [place] [address] Adrianne Ramon MD [facility] [address] [place] [address] Diffuse large B-cell lymphoma of lymph nodes [...] provided with an ID card stating the 6th grade teacher and type of port you have. Please carry this with you in a safe place. Bandage: There is a sterile dressing over the port site consisting of small gauze with a clear dressing (Tegaderm or [id number] ). This dressing should be left in place for 48 hours. If the clear dressing becomes loose you should place tape over the edges to secure it in place. Note: If you have steri-strips beneath your dressing, simply allow them to fall off. Do not peel them off. There may be Mesick-mcqueen (skin glue) also, allow this to flake [...] is during regular office hours, please call [phone]. If it is after regular office hours, or on weekends or holidays, please call [phone] and ask to speak to the Admitting Representative client retention specialist for Interventional Radiology. XXX You have received [...] (home) Telephone Information: PCP: Frederick Meade MD [phone] Date/Time of call: October 18, 2022/9:37 AM [...] : 1950 AGE: 72 y.o. Address: [address] [place] [phone] (home) Mobile: Telephone Information: Referring Provider: Adrianne [...] Questions Answers Where will study be performed? [facility] Radiology [120] Prefered insertion location: No [...] reviewed: Yes Higinio Ramsey MD PGY-3 Pager #[phone] Department of Radiology [facility], [facility] 10/17/2022 Source Note - James Champion DO [...] access for chemotherapy. IR History: None at [facility]. Antiplatelets: Aspirin 81 mg daily. Anticoagulants: None. 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 Tobacco Use Smoking status: Former Packs/day: 1.00 Types: Cigarettes Quit date: 1985 Years since quittin.6 Smokeless tobacco: Former Quit date: 02/19/1986 Tobacco comments: started smoking in [employer] Vaping Use Vaping Use: Never used Substance [...] AM EDT Office Visit Hematology/Oncology at [address] [address] Adrianne Ramon MD [facility] [address] [place] [address] Yael Merlos APRN [facility] [place] [address] 11/21/2023 10:00 AM EDT Infusion Hematology Oncology at [address] [address] 11/23/2023 11:00 AM EDT Office Visit Hematology [place] [address] Reynold Proctor MD [facility] [address] 11/23/2023 1:00 PM EDT Appointment Hematology [place] [address] 11/23/2023 2:00 PM EDT Office Visit Hematology [place] [address] Micha Givens Jr., MD [facility] [place] [address] 11/23/2023 3:30 PM EDT [place] [address] Micha Givens Jr., MD [facility] [address] [place] [address] documented as of this encounter Procedures Procedure [...] implant Indication: Diffuse large B-cell lymphoma, durable long-term central venous access for chemotherapy Procedure summary: [...] Glucose, POC 101 65 - 199 mg/dL [facility] Comment: Supplemental ranges: <140 mg/dL before meals <180 mg/dL all other times of the day Blood 10/17/2022 8:29 AM EDT 10/17/2022 8:29 AM EDT Adrianne Ramon MD [facility] [place] [address] documented in this encounter Visit Diagnoses Diagnosis [...] mL/hr documented in this encounter Care Teams Structural Worker Relationship Specialty Start Date End Date Frederick Meade MD [address] [facility] [facility] [address] [place] [address] PCP - General Family Medicine 11/29/17 documented as of this encounter
--- OUTSIDE RECORDS SUMMARY | 2023-11-16 06:31 | XMS_ITS | Encounter Summary ---
Author Organization [facility] Address [facility] [place] [address] Care Team Providers Care Liquor Bridge Operator Helper Name Role Phone Frederick Meade MD Primary Care Provider +1 [phone] Encounter Details Date Type Department Care Team (Late st Contact Info) Description 11/08/2022 Notes Only Hematology/Oncology at [address] [phone] Shelley Cason, [facility] OFFICE OF CARE MANAGEMENT Social History Tobacco [...] needs today. Offered support. Reminded Cheo of MEDICAL ADMINISTRATIVE TECHNICIAN availability and will continue to follow as indicated. Brief assessment Supportive Counseling documented in this encounter Plan of Treatment Upcoming Encounters Date Type Department Care Team (Late st Contact Info) Description 11/21/2023 9:30 AM EDT Office Visit Hematology/Oncology at [address] [phone] Adrianne Ramon MD [facility] [place] [address] Yael Merlos APRN [facility] [place] [address] 11/21/2023 10:00 AM EDT Infusion Hematology Oncology at [address] [address] 11/23/2023 11:00 AM EDT Office Visit Hematology [place] [address] Reynold Proctor MD [facility] [place] [address] 11/23/2023 1:00 PM EDT Appointment Hematology [place] [address] 11/23/2023 2:00 PM EDT Office Visit Hematology [place] [phone] Micha Givens Jr., MD [facility] [place] [address] 11/23/2023 3:30 PM EDT Hospital [place] [address] Micha Givens Jr., MD [facility] [address] [place] [address] documented as of this encounter Visit Diagnoses Not on filedocumented in this encounter Care Teams Liquor Bridge Operator Helper Relationship Specialty Start Date End Date Frederick Meade MD [address] [place] [address] [address] [place] [address] PCP - General Family Medicine 11/29/17 documented as of this encounter
--- OUTSIDE RECORDS SUMMARY | 2023-11-16 06:31 | XMS_ITS | Encounter Summary ---
Author Organization [facility] [place] [address] Care Team Providers Care Casing Flusher Name Role Phone Frederick Meade MD Primary Care Provider +1 [phone] Reason for Visit * Reason Onset Date Comments Follow-up 11/01/2022 Encounter Details Date Type Department Care Team (Late st Contact Info) Description 11/01/2022 Telephone Hematology/Oncology at [address] [phone] Polly Orellana RN Follow-up Social [...] to go to [facility] next Sunday to see Dr. Barbosa. They feel if things continue to get better therewill be no issue, they will let us know if things change. documented in this encounter Plan of Treatment Upcoming Encounters Date Type Department Care Team (Late st Contact Info) Description 11/21/2023 9:30 AM EDT Office Visit Hematology/Oncology at [address] [phone] Adrianne Ramon MD [facility] HEMATOLOGY [place] [address] Yael Merlos, ARCHITECTURE FACULTY MEMBER [facility] HEMATOLOGY [place] [address] 11/21/2023 10:00 AM EDT Infusion Hematology Oncology at [address] [phone] 11/23/2023 11:00 AM EDT Office Visit Hematology and Oncology at [place] [phone] Reynold Proctor MD [facility] [place] [address] 11/23/2023 1:00 PM EDT Appointment Hematology and Oncology at [place] [address] 11/23/2023 2:00 PM EDT Office Visit Hematology and Oncology at [place] [address] Micha Givens Jr., MD [facility] [address] [place] [address] 11/23/2023 3:30 PM EDT [place] [address] Micha Givens Jr., MD [facility] [address] [place] [address] documented as of this encounter Visit Diagnoses Not on filedocumented in this encounter Care Teams Casing Flusher Relationship Specialty Start Date End Date Frederick Meade MD [address] [place] [address] PCP - General Family Medicine 11/29/17 documented as of this encounter
--- OUTSIDE RECORDS SUMMARY | 2023-11-16 06:31 | XMS_ITS | Encounter Summary ---
Author Organization [facility] [place] [address] Care Team Providers Care Rescue Worker Name Role Phone Frederick Meade MD Primary Care Provider [phone] [phone] Encounter Details Date Type Department Care Team (Late st Contact Info) Description 10/19/2022 Telephone Hematology/Oncology at [address] [phone] Brenda Priest, RN Social History [...] AM EDT Office Visit Hematology/Oncology at [address] [phone] Adrianne Ramon MD [facility] HEMATOLOGY [place] [address] Yael Merlos APRN [facility] [place] [address] 11/21/2023 10:00 AM EDT Infusion Hematology Oncology at [address] [address] 11/23/2023 11:00 AM EDT Office Visit Hematology [place] [address] Reynold Proctor MD [facility] [place] [address] 11/23/2023 1:00 PM EDT Appointment Hematology [place] [address] 11/23/2023 2:00 PM EDT Office Visit Hematology [place] [phone] Micha Givens Jr., MD [facility] DR HEMATOLOGY [place] [address] 11/23/2023 3:30 PM EDT Hospital [place] [address] Micha Givens Jr., MD [facility] DR HEMATOLOGY [place] [address] documented as of this encounter Visit Diagnoses Not on filedocumented in this encounter Care Teams Rescue Worker Relationship Specialty Start Date End Date Frederick Meade MD [address] [place] [address] [address] [place] [address] PCP - General Family Medicine 11/29/17 documented as of this encounter
--- OUTSIDE RECORDS SUMMARY | 2023-11-16 06:31 | XMS_ITS | Encounter Summary ---
Author Organization [facility] [place] [address] Care Team Providers Care Accounts Receivable Collector Name Role Phone Frederick Meade MD Primary Care Provider +1 [phone] Reason for Visit * Reason Onset Date Comments Questions 11/14/2022 Encounter Details Date Type Department Care Team (Late st Contact Info) Description 11/14/2022 Telephone Hematology/Oncology at [address] [phone] Colt Ardon, RN Questions Social [...] [facility] They are soft formed, not loose He has been taking Metamucil regularly, his wants to make sure that is normal Best call back number [phone] documented in this encounter Plan of Treatment Upcoming Encounters Date Type Department Care Team (Late st Contact Info) Description 11/21/2023 9:30 AM EDT Office Visit Hematology/Oncology at [address] [phone] Adrianne Ramon MD [facility] [place] [address] Yael Merlos APRN [facility] DR [place] [address] 11/21/2023 10:00 AM EDT Infusion Hematology Oncology at [address] [address] 11/23/2023 11:00 AM EDT Office Visit Hematology and Oncology at [place] [phone] Reynold Proctor MD [facility] [place] [address] 11/23/2023 1:00 PM EDT Appointment Hematology and Oncology at [place] [address] 11/23/2023 2:00 PM EDT Office Visit Hematology and Oncology at [place] [phone] Micha Givens Jr., MD [facility] DR [place] [address] 11/23/2023 3:30 PM EDT Hospital Encounter MRI at [place] [phone] Micha Givens Jr., MD [facility] DR [place] [address] documented as of this encounter Visit Diagnoses Not on filedocumented in this encounter Care Teams Accounts Receivable Collector Relationship Specialty Start Date End Date Frederick Meade MD [address] [place] [address] [address] [place] [address] PCP - General Family Medicine 11/29/17 documented as of this encounter
--- OUTSIDE RECORDS SUMMARY | 2023-11-16 06:31 | XMS_ITS | Encounter Summary ---
Author Organization [facility] [address] Care Team Providers Care Direct Care Professional Name Role Phone Frederick Meade MD Primary Care Provider [phone] [phone] Encounter Details Date Type Department Care Team [...] AM EDT Office Visit Hematology/Oncology at [address] [phone] Adrianne Ramon MD [facility] [address] [place] [address] Yael Merlos APRN [facility] [address] [place] [address] 11/21/2023 10:00 AM EDT Infusion Hematology Oncology at [address] [address] 11/23/2023 11:00 AM EDT Office Visit [place]ematology [place] [phone] Reynold Proctor MD [facility] [place] [address] 11/23/2023 1:00 PM EDT Appointment Hematology [place] [phone] 11/23/2023 2:00 PM EDT Office Visit [place]ematology [place] [phone] Micha Givens Jr., MD [facility] [place] [address] 11/23/2023 3:30 PM EDT [place] [address] Micha Givens Jr., MD [facility] [address] [place] [address] documented as of this encounter Visit Diagnoses Not on filedocumented in this encounter Care Teams Direct Care Professional Relationship Specialty Start Date End Date Frederick Meade MD [address] [place] [address] [address] [place] [address] PCP - General Family Medicine 11/29/17 documented as of this encounter
--- OUTSIDE RECORDS SUMMARY | 2023-11-16 06:31 | XMS_ITS | Encounter Summary ---
Author Organization [facility] [place] [address] Care Team Providers Care Truck Driver Name Role Phone Frederick Meade MD Primary Care Provider [phone] [phone] Reason for Referral * Consultation (Urgent) - Closed Specialty Diagnoses / Procedures Referred By Paul bowen Referred To Contact Cardiology Diagnoses Diffuse large B-cell lymphoma of lymph nodes of multiple regions CARD-ONC Pt w/o cardiac hx. New lymphoma. Needs anthracycline. Echo w/ EF 49% & mild global hypokinesis. Please eval for ongoing anthracycline safety. Adrianne Mera MD [facility] DR [place] [address] Chalo Mcintyre MD [facility] [place] [address] Referral ID Status Reason Start Date Expiration Date V isits Requested Visits Authorized [id number] Closed Consult, Test & Treat 10/12/2022 10/12/2023 1 1 * Diagnostic Test (Routine) - Closed Specialty Diagnoses / Procedures Referred By Paul bowen Referred To Contact Cardiology Diagnoses Diffuse large B-cell lymphoma of lymph nodes of multiple regions Procedures Echocardiogram Transthoracic Adrianne Mera MD [facility] HEMATOLOGY [place] [address] [facility] [place] [address] Referral ID Status Reason Start Date Expiration Date V isits Requested Visits Authorized [id number] Closed Specialty Service Requested 10/12/2022 10/12/2023 1 1 Reason for Visit * Reason Comments Follow-up Encounter Details Date Type Department Care Team (Late st Contact Info) Description 10/12/2022 1:30 PM EDT Office Visit Hematology [place] [address] Adrianne Mera MD [facility] DR HEMATOLOGY [place] [address] Adrianne Aquino APRN [facility] HEMATOLOGY [place] [address] Diffuse large B-cell lymphoma of [...] - 10/12/2022 1:30 [place] [address] NEW PATIENT EVALUATION Patient Active [...] in [facility] and when to [facility]. No beds so sent [...] cause. - last COLO at [facility] was 01/17/2012. Cheo returns [...] only 1 biologic. Son Cheo Freire. Enjoys [employer], [employer], race car, cards. [employer]. 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 Not a . ETOH: 1-3 beers per week Smoking: Quit 1985. Approximately 94-nalr-vxjg history Vaping or electronic cigarettes: denies Chewing [...] Result Value Ref Range Surgical Pathology Report [id number] Location: OPW The signing pathologist has (i) examined the relevant preparation(s) for the specimen(s) and (ii) rendered or confirmed the diagnosis(es). . Surgical Pathology DIAGNOSIS CONSULTATION CASE A. TONGUE, LEFT BASE (BIOPSY); [OSR# [id number], COLLECTED 10/05/2022, 12 SLIDES]: 1. Diffuse large B-cell lymphoma, activated B-cell subtype (ABC-DLBCL) (see comment) 2. Ki67 proliferation estimated at >95%, lymphoma coexpresses BCL2 and CMYC Electronically signed by: Ole Bowen MD Verified: 10/12/2022 11:37 Hematopathologist Performed at: -[facility] Dept. of Pathology, [place] [address] Commercial Stripper: Katherine Lopez MD, FCAP, [place] Certificate: [id number] DISCUSSION Per report from the referring institution, ...Flow cytometry ([id number]) supports this interpretation. FISH studies were reportedly sent to [facility] to assess for MYC and BCL2 [...] referring facility, but included for evaluation at [facility]. Appropriate controls are included for each case. . SPECIMEN(S) SUBMITTED CONSULTATION CASE A - 12 slide(s) labeled [id number], collection date 10/05/2022. [id number] CARBON COPY: [facility] Surgical Pathology Department [facility], [facility], 2nd Floor [address] [place] [address] CLINICAL INFORMATION A 72 year old man. Per provided report, there is a clinical history of Massive LAD, history of prostate cancer; clinical diagnosis code: R59.1. SPECIMEN PROCESSING [facility] ([facility]) pathology slide(s) are reviewed. Refer to Diagnosis and Specimen Submitted for specific case information. For the full text of the [facility] report(s) please refer to the [...] and BCL-2 protein (Double Expressor.) Flow cytometry ([id number]) supports this interpretation. The differential classification of [...] (SP7, Thermo Scientific) Background T-cells CD20 (L26, Bowdle) diffusely positive in Neoplastic B-cells PAX-5 (1EW, Leica) diffusely positive in Neoplastic B-cells CD10 (SP67, Bowdle) Negative BCL-6 (G/191E/A8, Bowdle) Positive MUM-1 (MUM1p, Dako) Positive Myc (Y69, Abcam) Positive BCL-2 Oncoprotein (124, Bowdle) Positive Ki67 (MIB-1) (K2, Leica) Greater than 95% of cells in cycle Cyclin D1(SP4-R, Bowdle) Negative SAPPHIRE JOSE ([id number]-Q, Leica) Negative. DIAGNOSTICS: 10/11/22 ECHO EF = [...] chemotherapy. Furtherprednisone prescriptions will be given by [facility], during PTI chemotherapy teaching Cardiac - EF 49%. No stress test in past. Suspected MEHNAZ - Hgb drop 3gm in last 2 weeks. Taking oral iron 2 tabs per day. 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 No COLO in last 10 years. Will add iron studies to labs today and check PET tomorrow.Will follow. Labs seem most consistent with anemia of chronic disease. Prostate Cancer -DAVE at this time Plan: Follow up on FISH for MYC, BCL-2 and BLC-6 -UV sent these tests out to [facility] Prednisone -100 mg on 10/14 and 10/15. Then restart with chemotherapy Mediport -scheduled for Sunday PTI -on 10/18 at 8 AM with Yael Merlos at [facility] Discuss cardiac function, and role of anthracycline with ejection fraction of 49% with Dr. Matthew Mcintyre - message sent today Plan allopurinol X 14 d w/ C#1 Support with Onpro Claritin x1 week status post OnPro ID - acv prophy - add antibiotics only if neutropenic. Midcycle check with Fozia Richardson on 10/25. I appreciate her help. ECHO following C#1 at [facility] approx 10/20/22 Urgent referral to cardiology. Matthew Mcintyre requested. [facility] or [place] I discussed all of the above with the patient and all of his questions were answered. Support and counseling as appropriate. This note was written or modified using [employer] voice recognition software. The final note was screened for photogrammetric compilation specialist errors. Please excuse any remaining errors. Addendum staff message from Matthew Mcintyre, Cardiology: Adrianne; Thanks for the message; will see if we can see him up in [place]. On review of his CT, he has [...] AM EDT Office Visit Hematology/Oncology at [address] [phone] Adrianne Mera MD [facility] HEMATOLOGY [place] [address] Yael Merlos, MOTOR AND GENERATOR BRUSH CUTTER [facility] DR HEMATOLOGY [place] [address] 11/21/2023 10:00 AM EDT Infusion Hematology Oncology at [address] [address] 11/23/2023 11:00 AM EDT Office Visit Hematology [place] [address] Reynold Proctor MD [facility] [place] [address] 11/23/2023 1:00 PM EDT Appointment Hematology [place] [phone] 11/23/2023 2:00 PM EDT Office Visit Hematology [place] [address] Micha Givens Jr., MD [facility] DR HEMATOLOGY [place] [address] 11/23/2023 3:30 PM EDT Hospital [place] [address] Micha Givens Jr., MD [facility] DR HEMATOLOGY [place] [address] Scheduled Referrals Name Type Priority Associated Diagnoses [...] 1950 ? Height: 169 cm ? Account: [id number] Age: 72 yrs ? Weight: 93 kg Gender: Male ?BSA: 2.0 m2 Ordering Physician: ADRIANNE MERA Referring Physician: ADRIANNE MERA Performed By: SHAHANA Fernando Reason For Study: Lymphoma Exam Location: [facility]. Interpretation Summary LV systolic function appears to be low-normal. LV ejection fraction appears to be 52%. Global longitudinal strain is measured at -16.6 %. (GE). There are no segmental wall motion abnormalities. Normal right ventricle. No significant valvular abnormalities. Trivial pericardial effusion. On direct comparison to prior echo dated 10/12/2022, the LV function has slightly improved. Procedure Limited - [id number]. Left ventricular strain. Satisfactory quality. There is [...] Location: : 1950 Height: 169 cm Account: [id number] Age: 72 yrs Weight: 93 kg Gender: Male BSA: 2.0 m2 Ordering Physician: ADRIANNE MERA Referring Physician: ADRIANNE MERA Performed By: SHAHANA Fernando Reason For Study: Lymphoma Exam Location: [facility]. Interpretation Summary LV systolic function appears to be low-normal. LV ejection fractionappears to be 52%. Global longitudinal strain is measured at -16.6 %. (GE). There areno segmental wall motion abnormalities. Normal right ventricle. No significant valvular abnormalities. Trivial pericardial effusion. On direct comparison to prior echo dated 10/12/2022, the LV function hasslightly improved. Procedure Limited - [id number]. Left ventricular strain. Satisfactory quality. There isnormal [...] regions documented in this encounter Care Teams Truck Driver Relationship Specialty Start Date End Date Frederick Meade MD [address] [place] [address] PCP - General Family Medicine 11/29/17 documented as of this encounter
--- OUTSIDE RECORDS SUMMARY | 2023-11-16 06:31 | XMS_ITS | Encounter Summary ---
Author Organization [facility] [place] [address] Care Team Providers Care Popped Corn Oven Attendant Name Role Phone Frederick Meade MD Primary Care Provider [phone] [phone] Encounter Details Date Type Department Care Team [...] AM EDT Office Visit Hematology/Oncology at [address] [address] [address] [facility] DR HEMATOLOGY [place] [address] [facility] DR HEMATOLOGY [place] [address] 11/21/2023 10:00 AM EDT Infusion Hematology Oncology at [address] [address] 11/23/2023 11:00 AM EDT Office Visit Hematology [place] [address] [facility] [place] [place] [address] 11/23/2023 1:00 PM EDT Appointment Hematology [place] [address] 11/23/2023 2:00 PM EDT Office Visit Hematology [place] [address] Micha Givens Jr., MD [facility] HEMATOLOGY [place] [address] 11/23/2023 3:30 PM EDT Hospital [place] [address] Micha Givens Jr., MD [facility] DR HEMATOLOGY [place] [address] documented as of this encounter Visit Diagnoses Not on filedocumented in this encounter Care Teams Popped Corn Oven Attendant Relationship Specialty Start Date End Date Frederick Meade MD [address] [place] [address] [address] [place] [address] PCP - General Family Medicine 11/29/17 documented as of this encounter
--- OUTSIDE RECORDS SUMMARY | 2023-11-16 06:31 | XMS_ITS | Encounter Summary ---
Author Organization [facility] Address [facility] [place] [address] Care Team Providers Care Jewel Bearing Polisher Name Role Phone Frederick Meade MD Primary Care Provider [phone] [phone] Reason for Visit * Reason Onset Date Comments Other 10/30/[address] admission to [facility] Encounter Details Date Type Department Care Team (Late st Contact Info) Description 10/30/2022 Telephone Hematology/Oncology at [address] [phone] Lucía Nelson RN Other (FUV questions after admission to [facility]) Social History Tobacco Use Types Packs/Day [...] - 10/30/2022 10:39 AM EDT Cheo Freire [id number] Cheo was admitted to [facility] 10/25-10/29 for fevers and neutropenia. Missed his pita apt that Shayy Jarrett APRN was going to do last week. [facility] Cycle 1 10/18. Cycle 2- [...] AM EDT Office Visit Hematology/Oncology at [address] [address] Adrianne Ramon MD [facility] [place] [address] Yael Merlos APRN [facility] [place] [address] 11/21/2023 10:00 AM EDT Infusion Hematology Oncology at [address] [address] 11/23/2023 11:00 AM EDT Office Visit Hematology [place] [address] Reynold Proctor MD [facility] [place] [address] 11/23/2023 1:00 PM EDT Appointment Hematology [place] [address] 11/23/2023 2:00 PM EDT Office Visit Hematology [place] [address] Micha Givens Jr., MD [facility] [place] [address] 11/23/2023 3:30 PM EDT Hospital [place] [address] Micha Givens Jr., MD [facility] [place] [address] documented as of this encounter Visit Diagnoses Not on filedocumented in this encounter Care Teams Jewel Bearing Polisher Relationship Specialty Start Date End Date Frederick Meade MD [address] [place] [address] PCP - General Family Medicine 11/29/17 documented as of this encounter
--- OUTSIDE RECORDS SUMMARY | 2023-11-16 06:31 | XMS_ITS | Encounter Summary ---
Author Organization [facility] Address [facility] [place] [address] Care Team Providers Care Oil Burner Installer Name Role Phone Frederick Meade MD Primary Care Provider [phone] Reason for Visit * Reason Onset Date Comments Follow-up 10/25/2022 Pt admitted to [facility] Encounter Details Date Type Department Care Team (Late st Contact Info) Description 10/25/2022 Telephone Hematology/Oncology at [address] [address] Colt Ardon RN Follow-up (Pt admitted to [facility] ) Social History Tobacco Use Types [...] to report pt is getting admitted to [facility] with dehydration and low WBC. He did end up having a bowel movement ?last night but this morning couldn't urinate and had abdominal pressure again. They went to [facility] ED. Dr Mcbride at [facility] called and is admitted him, stating hisANC was 20. Pt had cycle 1 RCHOP with Neulasta On-pro on 10/18 for his DLBCL. Team made aware. Will check in on pt's disposition tomorrow. documented in this encounter Plan of Treatment Upcoming Encounters Date Type Department Care Team (Late st Contact Info) Description 11/21/2023 9:30 AM EDT Office Visit Hematology/Oncology at [address] [address] Adrianne Ramon MD [facility] HEMATOLOGY [place] [address] Yael Merlos, DIRECTOR OF QUANTITATIVE RESEARCH [facility] HEMATOLOGY [place] [address] 11/21/2023 10:00 AM EDT Infusion Hematology Oncology at [address] [address] 11/23/2023 11:00 AM EDT Office Visit Hematology and Oncology at [place] [phone] Reynold Proctor MD [facility] [place] [address] 11/23/2023 1:00 PM EDT Appointment Hematology and Oncology at [address] 11/23/2023 2:00 PM EDT Office Visit Hematology and Oncology at [place] [phone] Micha Givens Jr., MD [facility] DR HEMATOLOGY [place] [address] 11/23/2023 3:30 PM EDT Hospital [place] [address] Micha Givens Jr., MD [facility] DR HEMATOLOGY [place] [address] documented as of this encounter Visit Diagnoses Not on filedocumented in this encounter Care Teams Oil Burner Installer Relationship Specialty Start Date End Date Frederick Meade MD [address] [place] [address] PCP - General Family Medicine 11/29/17 documented as of this encounter
--- OUTSIDE RECORDS SUMMARY | 2023-11-16 06:31 | XMS_ITS | Encounter Summary ---
Author Organization [facility] [place] [address] Care Team Providers Care Fertilizing Machine Operator Name Role Phone Frederick Meade MD Primary Care Provider [phone] Encounter Details Date Type Department Care Team [...] AM EDT Office Visit Hematology/Oncology at [address] [address] Adrianne Ramon MD [facility] DR HEMATOLOGY [place] [address] Yael Merlos APRN [facility] DR HEMATOLOGY [place] [address] 11/21/2023 10:00 AM EDT Infusion Hematology Oncology at [address] [address] 11/23/2023 11:00 AM EDT Office Visit Hematology [place] [address] Reynold Proctor MD [facility] [place] [place] [address] 11/23/2023 1:00 PM EDT Appointment Hematology [place] [address] 11/23/2023 2:00 PM EDT Office Visit Hematology [place] [address] Micha Givens Jr., MD [facility] HEMATOLOGY [place] [address] 11/23/2023 3:30 PM EDT Hospital [place] [address] Micha Givens Jr., MD [facility] DR HEMATOLOGY [place] [address] documented as of this encounter Visit Diagnoses Not on filedocumented in this encounter Care Teams Fertilizing Machine Operator Relationship Specialty Start Date End Date Frederick Meade MD [address] [place] [address] [address] [place] [address] PCP - General Family Medicine 11/29/17 documented as of this encounter
--- OUTSIDE RECORDS SUMMARY | 2023-11-16 06:31 | XMS_ITS | Encounter Summary ---
[place] [address] Care Team Providers Care Dag Coater Name Role Phone Frederick Meade MD Primary Care Provider [phone] Encounter Details Date Type Department Care Team (Late st Contact Info) Description 10/25/2022 Telephone Hematology [place] [address] Davey Magdaleno MD [facility] DR HEMATOLOGY/[place] [address] Social History Tobacco Use Types Packs/Day Years [...] a call from Dr. Mcbride (Hospitalist) at [facility] this morning in regards to Cheo. 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 He presented to [facility] with an oral temp of 38.6. His [...] Dr. Ramon, on 10/[address] [facility] in [facility] on 10/18 with neupogen. I am [...] AM EDT Office Visit Hematology/Oncology at [address] [address] Adrianne Ramon MD [facility] DR HEMATOLOGY [place] [address] Yael Merlos APRN [facility] DR HEMATOLOGY [place] [address] 11/21/2023 10:00 AM EDT Infusion Hematology Oncology at [address] [address] 11/23/2023 11:00 AM EDT Office Visit Hematology [place] [address] Reynold Proctor MD [facility] [place] [address] 11/23/2023 1:00 PM EDT Appointment Hematology [place] [address] 11/23/2023 2:00 PM EDT Office Visit Hematology [place] [address] Micha Givens Jr., MD [facility] DR HEMATOLOGY [place] [address] 11/23/2023 3:30 PM EDT Hospital [place] [address] Micha Givens Jr., MD [facility] DR HEMATOLOGY [place] [address] documented as of this encounter Visit Diagnoses Not on filedocumented in this encounter Care Teams Dag Coater Relationship Specialty Start Date End Date Frederick Meade MD [address] [place] [address] [address] [place] [address] PCP - General Family Medicine 11/29/17 documented as of this encounter
--- OUTSIDE RECORDS SUMMARY | 2023-11-16 06:31 | XMS_ITS | Encounter Summary ---
Author Organization [facility] Address [facility] [place] [place] [address] Care Team Providers Care Radial Drill Press Operator For Plastic Name Role Phone Frederick Meade MD Primary Care Provider [phone] Encounter Details Date Type Department Care Team (Late st Contact Info) Description 10/18/2022 Notes Only Hematology/Oncology at [address] [address] Shelley Cason, [facility] OFFICE OF CARE [...] this encounter Progress Notes * Shelley Cason, SURVEY ENGINEER - 10/18/2022 11:54 AM EDT Reason for Referral: Brief assessment of social and emotional needs. Met with Cheo, his Claritza and his son Cheo during his first infusion visit today to introduce myself and role of geriatric social worker to assess/address barriers to getting [...] Advance care planning Plan: Informed pt of SURVEY ENGINEER availability and contact information. Will follow to assess/address psychosocial needs. FRANCISCO J Wisdom, PLANT CHIEF, OSW-C Medical Insurance Verifier [facility] documented in this encounter Plan of Treatment Upcoming Encounters Date Type Department Care Team (Late st Contact Info) Description 11/21/2023 9:30 AM EDT Office Visit Hematology/Oncology at [address] [address] Adrianne Ramon MD [facility] DR [place] [address] Yael Merlos APRN [facility] [address] [place] [address] 11/21/2023 10:00 AM EDT Infusion Hematology Oncology at [address] [address] 11/23/2023 11:00 AM EDT Office Visit Hematology [place] [address] Reynold Proctor MD [facility] [place] [address] 11/23/2023 1:00 PM EDT Appointment Hematology [place] [address] 11/23/2023 2:00 PM EDT Office Visit Hematology [place] [address] Micha Givens Jr., MD [facility] [place] [address] 11/23/2023 3:30 PM EDT Hospital [place] [address] Micha Givens Jr., MD [facility] [address] [place] [address] documented as of this encounter Visit Diagnoses Not on filedocumented in this encounter Care Teams Radial Drill Press Operator For Plastic Relationship Specialty Start Date End Date Frederick Meade MD [address] [place] [address] PCP - General Family Medicine 11/29/17 documented as of this encounter
--- OUTSIDE RECORDS SUMMARY | 2023-11-16 06:31 | XMS_ITS | Encounter Summary ---
Author Organization [facility] [place] [address] Care Team Providers Care Insurance Checker Name Role Phone Frederick Meade MD Primary Care Provider [phone] [phone] Reason for Visit * Reason Comments Chemotherapy [...] 100MG (CYTOXAN) Adrianne Ramon MD [facility] [address] HEMATOLOGY [place] [address] [facility] [address] [place] [address] Referral ID Status Reason Start Date Expiration Date Visits Re quested Visits Authorized [id number] Closed 10/11/2022 10/11/2023 1 100 Encounter Details Date Type Department Care Team (Late st Contact Info) Description 11/08/2022 10:00 AM EDT Infusion Hematology Oncology at [address] [address] Diffuse large B-cell lymphoma of [...] OBJECTIVE LAB DATA: completed 11/08 at [facility] Pre administration: [...] AM EDT Office Visit Hematology/Oncology at [address] [address] Adrianne Ramon MD [facility] [address] HEMATOLOGY [place] [address] Yael Merlos APRN [facility] [address] HEMATOLOGY [place] [address] 11/21/2023 10:00 AM EDT Infusion Hematology Oncology at [address] [address] 11/23/2023 11:00 AM EDT Office Visit [place]ematology [place] [address] Reynold Proctor MD [facility] [place] [address] 11/23/2023 1:00 PM EDT Appointment Hematology [place] [address] 11/23/2023 2:00 PM EDT Office Visit [place]ematology [place] [address] Micha Givens Jr., MD [facility] [address] HEMATOLOGY [place] [address] 11/23/2023 3:30 PM EDT Hospital Encounter MRI at [facility] [place] [address] Micha Givens Jr., MD [facility] [address] HEMATOLOGY [place] [address] documented as of this encounter Visit Diagnoses [...] 2 minutes is a recommendation from the vp of customer experience strategy. Administer prior to chemotherapy., Routine Given 11/08/2022 [...] (IV) Procedure: Accessing Implanted Vascular Access Devices (564) procedure and/or Intravenous (IV) Job Aid: Adult Flushing & Catheter Care (8389) job aid for additional information regarding guidelines [...] Job Aid: Adult Flushing & Catheter Care (9026) job aid for additional information regarding guidelines [...] mL/hr documented in this encounter Care Teams Insurance Checker Relationship Specialty Start Date End Date Frederick Meade MD [address] [place] [address] PCP - General Family Medicine 11/29/17 documented as of this encounter
--- OUTSIDE RECORDS SUMMARY | 2023-11-16 06:32 | XMS_ITS | Encounter Summary ---
Author Organization Count Includes [facility] [address] Care Team Providers Care Superintendent Measurement Name Role Phone Frederick Meade MD Primary Care Provider [phone] [phone] Reason for Referral * Diagnostic Test (Routine) - Closed Specialty Diagnoses / Procedures Referred By Contac t Referred To Contact Cardiology Diagnoses Diffuse large B-cell lymphoma of lymph nodes of multiple regions Procedures Echocardiogram Transthoracic Adrianne Mera MD [facility] DR HEMATOLOGY [place] [address] [facility] [place] [address] Referral ID Status Reason Start Date Expiration Date V isits Requested Visits Authorized [id number] Closed Specialty Service Requested 10/11/2022 10/11/2023 1 1 Encounter Details Date Type Department Care Team (Late st Contact Info) Description 10/11/2022 Orders Only [place]ematology [place] [address] Adrianne Mera MD [facility] DR HEMATOLOGY [place] [address] Diffuse large B-cell lymphoma of lymph nodes [...] AM EDT Office Visit Hematology/Oncology at [address] [address] Adrianne Mera MD [facility] HEMATOLOGY [place] [address] Yael Merlos, GRADES [address] TE[address] [facility] DR HEMATOLOGY [place] [address] 11/21/2023 10:00 AM EDT Infusion Hematology Oncology at [address] [address] 11/23/2023 11:00 AM EDT Office Visit Hematology and Oncology at [place] [phone] Reynold Proctor MD [facility] [place] [address] 11/23/2023 1:00 PM EDT Appointment Hematology [place] [address] 11/23/2023 2:00 PM EDT Office Visit Hematology and Oncology at [place] [phone] Micha Givens Jr., MD [facility] DR [place] [address] 11/23/2023 3:30 PM EDT Hospital Encounter MRI at [place] [phone] Micha Givens Jr., MD [facility] DR HEMATOLOGY [place] [address] documented as of this encounter Results * ECHO COMPLETE (10/12/2022 10:00 AM EDT) EF 49 HEARTLAB SYSTEM Anatomical Region Laterality Modality Cardiac Other 10/12/2022 9:33 AM EDT Narrative 10/12/2022 10:15 AM EDT ? Echocardiogram Report Name: CHEO MORFIN ? Study Date: 10/12/2022 09:33 AMBP: 164/86 mmHg ? Patient Location: [facility] : 1950 ? Height: 168 cm ? Account: [id number] Age: 72 yrs ? Weight: 97 kg Gender: Male ?BSA: 2.1 m2 Ordering Physician: ADRIANNE MERA Referring Physician: ADRIANNE MERA Performed By: Teresa Villafuerte RDCS Reason For Study: Diffuse large B-cell lymphoma of lymph nodes of multiple regions Exam Location: [facility]. Interpretation Summary Left ventricle is of [...] findings. No comparison study is available. Procedure Complete-67552. Satisfactory quality. Left Ventricle Left ventricle is [...] AMBP: 164/86 mmHg Patient Location: [facility] : 1950 Height: 168 cm Account: [id number] Age: 72 yrs Weight: 97 kg Gender: Male BSA: 2.1 m2 Ordering Physician: ADRIANNE MERA Referring Physician: ADRIANNE MERA Performed By: Teresa Villafuerte RDCS Reason For Study: Diffuse large B-cell lymphoma of lymph nodes ofmultiple regions Exam Location: [facility]. Interpretation Summary Left ventricle is of [...] findings. No comparison study is available. Procedure Complete-[id number]. Satisfactory quality. Left Ventricle Left ventricle is [...] mmHg . The estimated right atrial pressure [id number]. There is Grade I LV diastolic dysfunction [...] documented in this encounter Care Teams Superintendent Measurement Relationship Specialty Start Date End Date Frederick Meade MD [address] [place] [address] PCP - General Family Medicine 11/29/17 documented as of this encounter
--- OUTSIDE RECORDS SUMMARY | 2023-11-16 06:32 | XMS_ITS | Encounter Summary ---
[place] [address] Care Team Providers Care Professor Of Environmental Engineering Name Role Phone Frederick Meade MD Primary Care Provider [phone] [phone] Encounter Details Date Type Department Care Team (Late Contact Info) Description 09/22/2022 Notes [place] [address] Karly Jacobs MD [facility] [place] [address] Social History Tobacco Use Types Packs/Day Years [...] Department Care Team (Late Contact Info) Description 11/21/2023 9:30 AM EDT Office Visit Hematology/Oncology at [address] [address] Adrianne Ramon MD [facility] H[place]AT[place] [address] Yael Merlos, PERSONAL LINES INSURANCE ADVISOR [facility] DR [place] [address] 11/21/2023 10:00 AM EDT Infusion Hematology Oncology at [address] [address] 11/23/2023 11:00 AM EDT Office Visit Hematology and Oncology at [address] Reynold Proctor MD [facility] [place] [address] 11/23/2023 1:00 PM EDT Appointment Hematology and Oncology at [place] [address] 11/23/2023 2:00 PM EDT Office Visit Hematology and Oncology at [address] Micha Givens Jr., MD [facility] [place] [address] 11/23/2023 3:30 PM EDT Hospital Encounter MRI at [place] [phone] Micha Givens Jr., MD [facility] [place] [address] documented as of this encounter Visit Diagnoses Not on filedocumented in this encounter Care Teams Professor Of Environmental Engineering Relationship Specialty Start Date End Date Frederick Meade MD [address] [place] [address] PCP - General Family Medicine 11/29/17 documented as of this encounter
--- OUTSIDE RECORDS SUMMARY | 2023-11-16 06:32 | XMS_ITS | Encounter Summary ---
[place] [address] Care Team Providers Care Learning Designer Name Role Phone Bobby Headley MD Primary Care Provider [phone] Encounter Details Date Type Department Care Team (Late st Contact Info) Description 12/14/2016 3:45 PM EDT Office Visit Hematology/Oncology at [address] [address] Nancy Stratton, TRAFFIC ENGINEERING DIRECTOR [address] [facility] [place] [address] Malignant neoplasm of prostate Social History Tobacco [...] this encounter Progress Notes * Nancy Stratton, TRAFFIC ENGINEERING DIRECTOR - 12/14/2016 3:45 PM EDT Images from the original note were not included. Patient ID: Cheo Freire is a 66 y.o. 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 He was treated with external beam [...] Pathology had [facility]. He did have a prolo [...] the prostate Field orientation: Dynamic arc VMAT Lead Portfolio Manager Target Coverage (70Gy isodose line indicated): [...] Biopsy 09/01/2014 Volume in cc 15 cc Bombay grade/score a+b=c 4+3=7-- intermediate risk prostate cancer [...] of education: N/A Occupational History ??? 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 [...] to their sporting events. He went to [place] last September to attend a Bet[employer]ub[place] andhad a great time. He feels he [...] concerns in the interim. Nancy Stratton, MSN, TRAINING AND DEVELOPMENT SPECIALIST, AOCN Hematology/Oncology Nurse Practitioner [place], [place] [phone] . documented in this encounter Plan of Treatment Upcoming Encounters Date Type Department Care Team (Late st Contact Info) Description 11/21/2023 9:30 AM EDT Office Visit Hematology/Oncology at [address] [phone] Adrianne Ramon MD [facility] HEMATOLOGY [place] [address] Yael Merlos APRN [facility] HEMATOLOGY [place] [address] 11/21/2023 10:00 AM EDT Infusion Hematology Oncology at [address] [address] 11/23/2023 11:00 AM EDT Office Visit Hematology [place] [address] Reynold Proctor MD [facility] [place] [address] 11/23/2023 1:00 PM EDT Appointment Hematology [place] [address] 11/23/2023 2:00 PM EDT Office Visit Hematology [place] [address] Micha Givens Jr., MD [facility] DR HEMATOLOGY [place] [address] 11/23/2023 3:30 PM EDT Hospital [place] [address] Micha Givens Jr., MD [facility] DR HEMATOLOGY [place] [address] documented as of this encounter Visit Diagnoses Diagnosis Malignant neoplasm of prostate documented in this encounter Care Teams Learning Designer Relationship Specialty Start Date End Date Bobby Headley MD [address] [place] [address] PCP - General 01/29/14 11/28/17 documented as of this encounter
--- OUTSIDE RECORDS SUMMARY | 2023-11-16 06:32 | XMS_ITS | Encounter Summary ---
Author Organization [facility] [place] [address] Care Team Providers Care Wealth Management Consultant Name Role Phone Frederick Meade MD Primary Care Provider [phone] Encounter Details Date Type Department Care Team (Latest Contact Info) Description 09/22/2022 12:50 AM EDT Ancillary Procedure Radiology Library at [facility] [place] [address] Thierry Ruiz MD [facility] [place] [address] Nasopharyngeal mass Social History Tobacco Use Types [...] AM EDT Office Visit Hematology/Oncology at [address] [address] Adrianne Ramon MD [facility] HEMATOLOGY AND [place] [address] Yael Merlos APRN [facility] HEMATOLOGY [place] [address] 11/21/2023 10:00 AM EDT Infusion Hematology Oncology at [address] [address] 11/23/2023 11:00 AM EDT Office Visit Hematology [place] [address] Reynold Proctor MD [facility] [place] [address] 11/23/2023 1:00 PM EDT Appointment Hematology [place] [address] 11/23/2023 2:00 PM EDT Office Visit Hematology [place] [address] Micha Givens Jr., MD [facility] DR [place] [address] 11/23/2023 3:30 PM EDT Hospital Encounter MRI at [place] [phone] Micha Givens Jr., MD [facility] DR HEMATOLOGY [place] [address] documented as of this encounter Procedures Procedure [...] who have questions please contact the health childbirth and infant care teacher that requested your imaging first. ? Narrative 09/22/2022 3:13 PM EDT EXAMINATION: REQUEST FOR 2ND READ CT NECK CLINICAL HISTORY: Nasopharyngeal fluid collection vs infected node, retropharyngeal adenopathy, BOT fullness, RIGHT thyroid lesion; Sending Institution [facility]; Date of exam 09/21/2022; I believe [...] BOT fullness, RIGHT thyroid lesion; Sending Institution [facility]; Date of exam 09/21/2022; I believe [...] patients who have questions please contactthe health childbirth and infant care teacher that requested your imaging first. Thierry Ruiz MD IMG OUTSIDE INTERPRE TATION ORDERABLES documented in this encounter Visit Diagnoses Diagnosis Nasopharyngeal mass Unspecified disease of pharynx documented in this encounter Care Teams Wealth Management Consultant Relationship Specialty Start Date End Date Frederick Meade MD [address] [place] [address] PCP - General Family Medicine 11/29/17 documented as of this encounter
--- OUTSIDE RECORDS SUMMARY | 2023-11-16 06:32 | XMS_ITS | Encounter Summary ---
Author [place] [address] Care Team Providers Care Russian History Professor Name Role Phone Bobby Headley MD Primary Care Provider [phone] Reason for Visit * Reason Comments Radiation Follow-up prostate cancer Encounter Details Date Type Department Care Team (Late st Contact Info) Description 06/03/2015 3:15 PM EDT Office Visit Radiation Oncology at [address] [phone] Anna Carr [address] RADIATION ONCOLOGY [place], [place] [phone] Malignant neoplasm of prostate Social History Tobacco [...] encounter Progress Notes * Anna Carr Parish, CHIEF SAFETY OFFICER - 06/02/2015 9:56 AM EDT Images from the original note were not included. Patient ID: Cheo Freire is a 65 y.o. 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 He was treated with external beam [...] elevated at 5.4 with only 9% free. [place] with Dr. Vergara July 2014 who offered biopsy which was performed 09/01/14, demonstrating Gleason4 + 3 disease in a single core at the right apex. Forty-five percent of that core did appear to be involved. Perineural invasion was not seen. Pathology had been reviewed here at [facility]. 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 Smoking [...] sporting events. He will be going to [place] in September to attend a [employer] tournament. He feels he is coping well. [...] Negative. Vitals Office Visit from 06/03/2015 in [facility] Radiation Oncology Weight - Scale 92.08 [...] prostate cancer with pretreatment PSA of 5.4 Clinton 4+3=7. He was treated with external beam [...] AM EDT Office Visit Hematology/Oncology at [address] [phone] Adrianne Ramon MD [facility] H[place]ATOLOG[place] [address] Yael Merlos APRN [facility] [place] [address] 11/21/2023 10:00 AM EDT Infusion Hematology Oncology at [address] [address] 11/23/2023 11:00 AM EDT Office Visit Hematology [place] [address] Reynold Proctor MD [facility] [address] 11/23/2023 1:00 PM EDT Appointment Hematology and Oncology at [address] 11/23/2023 2:00 PM EDT Office Visit Hematology and Oncology at [place] [phone] Micha Givens Jr., MD [facility] [place] [address] 11/23/2023 3:30 PM EDT Hospital [place] [address] Micha Givens Jr., MD [facility] [place] [address] documented as of this encounter Visit Diagnoses Diagnosis Malignant neoplasm of prostate documented in this encounter Care Teams Russian History Professor Relationship Specialty Start Date End Date Bobby Headley MD [address] [place] [address] PCP - General 01/29/14 11/28/17 documented as of this encounter
--- OUTSIDE RECORDS SUMMARY | 2023-11-16 06:32 | XMS_ITS | Encounter Summary ---
Author Organization [facility] [place] [address] Care Team Providers Care Waterproof Bag Sewer Name Role Phone Bobby Headley MD Primary Care Provider [phone] Encounter Details Date Type Department Care Team (Late st Contact Info) Description 03/01/2016 11:00 AM EST Office Visit Hematology/Oncology at [address] [address] Annika Quezada APRN [facility] [place] [address] Prostate cancer Social History Tobacco Use Types [...] elevated at 5.4 with only 9% free. [place] with Dr. Vergara July 2014 who offered biopsy which was performed 09/01/14, demonstrating Gleason4 + 3 disease in a single core at the right apex. Forty-five percent of that core did appear to be involved. Perineural invasion was not seen. Pathology had been reviewed here at [facility]. 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 Smoking [...] to their sporting events. He went to [place] in September to attend a [employer] tournament and had a great time. He [...] AM EDT Office Visit Hematology/Oncology at [address] [phone] Adrianne Ramon MD [facility] DR [place] [address] Yael Merlos APRN [facility] [place] [address] 11/21/2023 10:00 AM EDT Infusion Hematology Oncology at [address] [phone] 11/23/2023 11:00 AM EDT Office Visit Hematology [place] [address] Reynold Proctor MD [facility] [place] [address] 11/23/2023 1:00 PM EDT Appointment Hematology [place] [address] 11/23/2023 2:00 PM EDT Office Visit Hematology [place] [address] Micha Givens Jr., MD [facility] DR [place] [address] 11/23/2023 3:30 PM EDT Hospital [place] [address] Micha Givens Jr., MD [facility] DR [place] [address] documented as of this encounter Visit Diagnoses Diagnosis Prostate cancer Malignant neoplasm of prostate documented in this encounter Care Teams Waterproof Bag Sewer Relationship Specialty Start Date End Date Bobby Headley MD [address] [place] [address] PCP - General 01/29/14 11/28/17 documented as of this encounter
--- OUTSIDE RECORDS SUMMARY | 2023-11-16 06:32 | XMS_ITS | Encounter Summary ---
Author Organization [facility] [place] [address] Care Team Providers Care Oil Well Logging Engineer Name Role Phone Frederick Meade MD Primary Care Provider [phone] Encounter Details Date Type Department Care Team (Late st Contact Info) Description 10/10/2022 Orders Only Hematology [place] [address] Adrianne Ramon MD [facility] DR HEMATOLOGY [place] [address] Non-Hodgkin lymphoma of lymph nodes of multiple [...] AM EDT Office Visit Hematology/Oncology at [address] [address] Adrianne Ramon MD [facility] DR HEMATOLOGY [place] [address] Yael Merlos, KARLA [facility] HEMATOLOGY [place] [address] 11/21/2023 10:00 AM EDT Infusion Hematology Oncology at [address] [address] 11/23/2023 11:00 AM EDT Office Visit Hematology [place] [phone] Reynold Proctor MD [facility] [place] [address] 11/23/2023 1:00 PM EDT Appointment Hematology [place] [address] 11/23/2023 2:00 PM EDT Office Visit Hematology [place] [address] Micha Givens Jr., MD [facility] DR HEMATOLOGY [place] [address] 11/23/2023 3:30 PM EDT Hospital [place] [address] Micha Givens Jr., MD [facility] DR HEMATOLOGY [place] [address] documented as of this encounter Visit Diagnoses Diagnosis Non-Hodgkin lymphoma of lymph nodes of multiple regions, unspecified non-Hodgkin lymphoma type documented in this encounter Care Teams Oil Well Logging Engineer Relationship Specialty Start Date End Date Frederick Meade MD [address] [place] [address] [address] [place] [address] PCP - General Family Medicine 11/29/17 documented as of this encounter
--- OUTSIDE RECORDS SUMMARY | 2023-11-16 06:32 | XMS_ITS | Encounter Summary ---
Author [place] [address] Care Team Providers Care Financial Planner Name Role Phone Frederick Meade MD Primary Care Provider [phone] Encounter Details Date Type Department Care Team (Late st Contact Info) Description 10/10/2022 Telephone Hematology [place] [phone] Castro Jimenez MD [facility] HEMATOLOGY/[place] [address] Social History Tobacco Use Types Packs/Day Years [...] phone call from Dr. Jain (office number [phone]) at [facility] ENT office to discuss below. 72 yo male is seen by DR. Jain for enlarging neck masses. 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 FISH is pending. Since he was worked up in [facility], the results are in [facility] system. Due to the airway concern, pt was started on prednisone last week. Dr. Jain reached out to me to see how quickly case checker at [facility] can see him. I discussed this case with Dr. Tolliver and soon after that I was told that [facility], which will be the best plan. Dr. Jain was updated about this plan by the hematology clinic. Castro Jimenez MD [facility] Hematology Oncology Fellow Page [phone] documented in this encounter Plan of Treatment Upcoming Encounters Date Type Department Care Team (Late st Contact Info) Description 11/21/2023 9:30 AM EDT Office Visit Hematology/Oncology at [address] [phone] Adrianne Ramon MD [facility] DR [place] [address] Yael Merlos, DIGITAL STRATEGY DIRECTOR [facility] DR HEMATOLOGY [place] [address] 11/21/2023 10:00 AM EDT Infusion Hematology Oncology at [address] [phone] 11/23/2023 11:00 AM EDT Office Visit Hematology [place] [address] Reynold Proctor MD [facility] [place] [address] 11/23/2023 1:00 PM EDT Appointment Hematology and Oncology at [place] [phone] 11/23/2023 2:00 PM EDT Office Visit Hematology and Oncology at [address] Micha Givens Jr., MD [facility] DR [place] [address] 11/23/2023 3:30 PM EDT Hospital Encounter MRI at [place] [phone] Micha Givens Jr., MD [facility] DR [place] [address] documented as of this encounter Visit Diagnoses Not on filedocumented in this encounter Care Teams Financial Planner Relationship Specialty Start Date End Date Frederick Meade MD [address] [place] [address] [address] [place] [address] PCP - General Family Medicine 11/29/17 documented as of this encounter
--- OUTSIDE RECORDS SUMMARY | 2023-11-16 06:32 | XMS_ITS | Encounter Summary ---
Author Organization [facility] [place] [address] Care Team Providers Care Automotive Instructor Name Role Phone Frederick Meade MD Primary Care Provider [phone] Encounter Details Date Type Department Care Team (Late Contact Info) Description 09/21/2022 10:05 PM EDT Ancillary Procedure Radiology Library at [facility] [place] [address] Thierry Ruiz MD [facility] [place] [place] [address] Social History Tobacco Use Types Packs/Day Years [...] AM EDT Office Visit Hematology/Oncology at [address] [phone] Adrianne Ramon MD [facility] HEMATOLOGY [place] [address] Yael Merlos APRN [facility] HEMATOLOGY [place] [address] 11/21/2023 10:00 AM EDT Infusion Hematology Oncology at [address] [address] 11/23/2023 11:00 AM EDT Office Visit Hematology and Oncology at [place] [phone] Reynold Proctor MD [facility] [place] [address] 11/23/2023 1:00 PM EDT Appointment Hematology and Oncology at [address] 11/23/2023 2:00 PM EDT Office Visit Hematology and Oncology at [place] [phone] Micha Givens Jr., MD [facility] [place] [address] 11/23/2023 3:30 PM EDT Hospital Encounter MRI at [place] [phone] Micha Givens Jr., MD [facility] [place] [address] documented as of this encounter Procedures Procedure Name Priority Date/Time Associated Diagnosis Comments FILM LIBRARY STORAGE ONLY CT HEAD AND SPINE Routine 09/21/2022 10:02 PM EDT documented in this encounter Results * Film Library- Storage Only CT Head And Spine (09/21/2022 10:02 PM EDT) Narrative [facility] - 09/21/2022 10:02 PM EDT This exam is auto-finalizing. It's purpose is for storage only. Thierry Ruiz MD G FILM LIBRARY ORD ERABLES [facility] RAD [place], [place] documented in this encounter Visit Diagnoses Not on filedocumented in this encounter Care Teams Automotive Instructor Relationship Specialty Start Date End Date Frederick Meade MD [address] [place] [address] PCP - General Family Medicine 11/29/17 documented as of this encounter
--- OUTSIDE RECORDS SUMMARY | 2023-11-16 06:32 | XMS_ITS | Encounter Summary ---
Author Organization [facility] [place] [address] Care Team Providers Care Business Management Specialist Name Role Phone Bobby Headley MD Primary Care Provider [phone] Encounter Details Date Type Department Care Team (Late Contact Info) Description 11/21/2017 Orders Only Radiation Oncology at [address] [phone] Lidia Reno RN Malignant neoplasm [...] AM EDT Office Visit Hematology/Oncology at [address] [phone] Adrianne Ramon MD [facility] HEMATOLOGY [place] [address] Yael Merlos APRN [facility] DR [place] [address] 11/21/2023 10:00 AM EDT Infusion Hematology Oncology at [address] [address] 11/23/2023 11:00 AM EDT Office Visit Hematology and Oncology at [address] Reynold Proctor MD [facility] [place] [address] 11/23/2023 1:00 PM EDT Appointment Hematology and Oncology at [place] [address] 11/23/2023 2:00 PM EDT Office Visit Hematology and Oncology at [place] [phone] Micha Givens Jr., MD [facility] DR [place] [address] 11/23/2023 3:30 PM EDT Hospital Encounter MRI at [place] [phone] Micha Givens Jr., MD [facility] DR [place] [address] documented as of this encounter Visit Diagnoses Diagnosis Malignant neoplasm of prostate documented in this encounter Care Teams Business Management Specialist Relationship Specialty Start Date End Date Bobby Headley MD [address] [place] [address] PCP - General 01/29/14 11/28/17 documented as of this encounter
--- OUTSIDE RECORDS SUMMARY | 2023-11-16 06:32 | XMS_ITS | Encounter Summary ---
[place] [address] Care Team Providers Care Manager Helpdesk Name Role Phone Bobby Headley MD Primary Care Provider [phone] Reason for Visit * Reason Comments Radiation Follow-up prostate cancer Encounter Details Date Type Department Care Team (Late st Contact Info) Description 02/25/2015 1:45 PM EST Office Visit Radiation Oncology at [address] [phone] Anna Carr [address] [place] [address] Malignant neoplasm of prostate Social [...] this encounter Progress Notes * Anna Carr, SHALE PLANER OPERATOR - 02/24/2015 4:31 PM EST Images from [...] elevated at 5.4 with only 9% free. [place] with Dr. Vergara July 2014 who offered biopsy which was performed 09/01/14, demonstrating Gleason4 + 3 disease in a single core at the right apex. Forty-five percent of that core did appear to be involved. Perineural invasion was not seen. Pathology had been reviewed here at [facility]. 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 Smoking [...] Negative. Vitals Office Visit from 02/25/2015 in [facility] Radiation Oncology Weight - Scale 90.266 [...] prostate cancer with pretreatment PSA of 5.4 [place] 4+3=7. He was treated with external beam [...] AM EDT Office Visit Hematology/Oncology at [address] [phone] Adrianne Ramon MD [facility] DR HEMATOLOGY [place] [address] Yael Merlos APRN [facility] HEMATOLOGY [place] [address] 11/21/2023 10:00 AM EDT Infusion Hematology Oncology at [address] [address] 11/23/2023 11:00 AM EDT Office Visit Hematology [place] [address] Reynold Proctor MD [facility] [place] [address] 11/23/2023 1:00 PM EDT Appointment Hematology [place] [address] 11/23/2023 2:00 PM EDT Office Visit Hematology [place] [address] Micha Givens Jr., MD [facility] DR HEMATOLOGY [place] [address] 11/23/2023 3:30 PM EDT Hospital [place] [address] Micha Givens Jr., MD [facility] DR HEMATOLOGY [place] [address] documented as of this encounter Visit Diagnoses Diagnosis Malignant neoplasm of prostate documented in this encounter Care Teams Manager Helpdesk Relationship Specialty Start Date End Date Bobby Headley MD [address] [place] [address] PCP - General 01/29/14 11/28/17 documented as of this encounter
--- OUTSIDE RECORDS SUMMARY | 2023-11-16 06:32 | XMS_ITS | Encounter Summary ---
[place] [address] Care Team Providers Care Steamer Blocker Name Role Phone Frederick Meade MD Primary Care Provider [phone] Encounter Details Date Type Department Care Team (Late st Contact Info) Description 10/11/2022 Notes [place] [address] James Champion, [facility] [place] [address] Social History Tobacco Use Types Packs/Day Years [...] access for chemotherapy. IR History: None at [facility]. 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 Tobacco Use Smoking status: Former [...] AM EDT Office Visit Hematology/Oncology at [address] [phone] Adrianne Ramon MD [facility] DR [place] [address] Yael Merlos APRN [facility] DR [place] [address] 11/21/2023 10:00 AM EDT Infusion Hematology Oncology at [address] [address] 11/23/2023 11:00 AM EDT Office Visit Hematology [place] [address] Reynold Proctor MD [facility] [place] [address] 11/23/2023 1:00 PM EDT Appointment Hematology [place] [address] 11/23/2023 2:00 PM EDT Office Visit Hematology and Oncology at [address] Micha Givens Jr., MD [facility] DR [place] [address] 11/23/2023 3:30 PM EDT Hospital Encounter MRI at [place] [phone] Micha Givens Jr., MD [facility] DR [place] [address] documented as of this encounter Visit Diagnoses Not on filedocumented in this encounter Care Teams Steamer Blocker Relationship Specialty Start Date End Date Frederick Meade MD [address] [place] [address] PCP - General Family Medicine 11/29/17 documented as of this encounter
--- OUTSIDE RECORDS SUMMARY | 2023-11-16 06:32 | XMS_ITS | Encounter Summary ---
[place] [address] Care Team Providers Care Marine Radio Installer And Servicer Name Role Phone Bobby Headley MD Primary Care Provider [phone] Encounter Details Date Type Department Care Team (Latest Contact Info) Description 01/04/2015 Unscheduled Encounter Radiation Oncology at [address] [phone] Lidia Reno, RN Malignant neoplasm of prostate [...] AM EDT Office Visit Hematology/Oncology at [address] [address] Adrianne Ramon MD [facility] DR HEMATOLOGY [place] [address] Yael Merlos APRN [facility] DR HEMATOLOGY [place] [address] 11/21/2023 10:00 AM EDT Infusion Hematology Oncology at [address] [phone] 11/23/2023 11:00 AM EDT Office Visit Hematology [place] [phone] Reynold Proctor MD [facility] [place] [address] 11/23/2023 1:00 PM EDT Appointment Hematology [place] [address] 11/23/2023 2:00 PM EDT Office Visit Hematology [place] [phone] Micha Givens Jr., MD [facility] HEMATOLOGY [place] [address] 11/23/2023 3:30 PM EDT Hospital [place] [address] Micha Givens Jr., MD [facility] DR HEMATOLOGY [place] [address] documented as of this encounter Visit Diagnoses Diagnosis Malignant neoplasm of prostate documented in this encounter Care Teams Marine Radio Installer And Servicer Relationship Specialty Start Date End Date Bobby Headley MD [address] [address] PCP - General 01/29/14 11/28/17 documented as of this encounter
--- OUTSIDE RECORDS SUMMARY | 2023-11-16 06:32 | XMS_ITS | Encounter Summary ---
[place] [address] Care Team Providers Care Boston Cutter Name Role Phone Frederick Meade MD Primary Care Provider [phone] Reason for Referral * Diagnostic Test (Routine) - Closed Specialty Diagnoses / Procedures Referred By Contac t Referred To Contact Radiology Diagnoses Diffuse large B-cell lymphoma of lymph nodes of multiple regions Procedures IR Mediport Placement Adrianne Ramon MD [facility] DR [place]AT[place] [address] [place] [address] Referral ID Status Reason Start Date Expiration Date V isits Requested Visits Authorized [id number] Closed Specialty Service Requested 10/11/2022 04/13/2024 1 [facility] H[facility] [place] [address] [place] [address] Referral ID Status Reason Start Date Expiration Date V isits Requested Visits Authorized [id number] Closed Specialty Service Requested 10/10/2022 04/12/2024 1 2 Reason for Visit * Consultation (Routine) - Closed Specialty Diagnoses / Procedures Referred By Contac t Referred To Contact Hematology and Oncology Diagnoses Diffuse large B-cell lymphoma, unspecified body region Lg Ramírez MD [address] [place] [address] Hem Onc Office [address] [place] [phone] Referral ID Status Reason Start Date Expiration Date V isits Requested Visits Authorized [id number] Closed Consult, Test & Treat 10/10/2022 10/10/2023 1 1 Encounter Details Date Type Department Care Team (Late st Contact Info) Description 10/11/2022 12:00 PM EDT Office Visit Hematology/Oncology at [address] [phone] Adrianne Ramon MD [facility] DR HEMATOLOGY [place] [address] Non-Hodgkin lymphoma of lymph nodes of multiple [...] - 10/11/2022 12:00 PM EDT Hematology Clinic [facility] [place] [address] NEW PATIENT EVALUATION Patient Active Problem List [...] [facility] and when to [facility]. No beds so sent to [facility] for [address] CAP, [...] days with nice response. Pathology from [facility] reports large B-cell lymphoma. Double expresser. FISH for translocations are pending. Tongue swelling. No wt loss. Eating and drinking OK. No fevers, infections, No NS. Pain in neck.Prednisone 60mg daily X 7 days. I feel great on prednisone last day of prednisone is today Took iron supplements per PCP - unclear cause. - last COLO at [facility] was 01/17/2012. This dictation platform is no longer active. Please use [employer]. ONCOLOGY HISTORY: Intermediate risk prostate cancer (4+3, [...] Fre[place]. Enjoys reads, movies, race car, cards. [employer]. 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 Not a . ETOH: 1-3 beers per week Smoking: Quit 1985. Approximately 88-sipp-cixd history Vaping or electronic cigarettes: denies Chewing [...] and BCL-2 protein (Double Expressor.) Flow cytometry ([id number]) supports this interpretation. The differential classification of this lesion is diffuse large B-cell lymphoma versus high grade B-cell lymphoma with MYC and BCL-2 rearrangement. Material has been sent to [facility] to assess the [...] undergo investigation with ultrasound. CT CAP at [facility], report and images have been requested. [...] treatment. We will obtain his pathology from [facility], but it appears to be a [...] given 1 day as an outpatient and [facility] and repeated every 3 weeksfor a total of 6 cycles. This takes about 4-1/2 months to complete. I anticipate his lymphoma will respond well. Suspected MEHNAZ - Hgb drop 3gm in last 2 weeks. Taking oral iron 2 tabs per day. Stools have been clinic md associate recently. No COLO in last 10 years. Will add iron studies to labs today and check PET tomorrow.Will follow. Labs seem most consistent with anemia of chronic disease. Prostate Cancer -DAVE at this time Plan: PET tomorrow [facility] Obtain Path for review at [facility] - follow on FISH Obtain records from [place] -CT chest abdomen and pelvis, discharge summary, and MRI Prednisone -we will hold for now. Await PET scan tomorrow. Mediport -order placed and requested today PTI -on 10/18 at 8 AM with Yael Merlos at [facility] ECHO-tomorrow at [facility] [...] This note was written or modified using Koko voice recognition software. The final note was screened for instant potato processing supervisor errors. Please excuse any remaining errors. total time: time in counselling: Copy Frederick Meade MD * Polly Orellana RN - 10/11/2022 12:00 PM EDT [facility] Patient Medical Oncology Note SOCIAL ASSESSMENT: See [facility] social assessment information entered. 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 Need FMLA [...] [ ] no Local Pharmacy: [facility] in [facility] FUNCTIONAL SCREENING: Balance difficulty: [ x [...] AM EDT Office Visit Hematology/Oncology at [address] [phone] Adrianne Ramon MD [facility] DR HEMATOLOGY [place] [address] Yael Merlos APRN [facility] H[place]ATOLOG[place] [address] 11/21/2023 10:00 AM EDT Infusion Hematology Oncology at [address] [phone] 11/23/2023 11:00 AM EDT Office Visit Hematology and Oncology at [place] [phone] Reynold Proctor MD [facility] [place] [address] 11/23/2023 1:00 PM EDT Appointment Hematology and Oncology at [place] [phone] 11/23/2023 2:00 PM EDT Office Visit Hematology and Oncology at [place] [phone] Micha Givens Jr., MD [facility] HEMATOLOGY [place] [address] 11/23/2023 3:30 PM EDT Hospital Encounter MRI at [place] [phone] Micha Givens Jr., MD [facility] H[place]ATOLOGY [place] [address] Scheduled Orders Name Type Priority Associated Diagnoses [...] Uric Acid 5.5 3.5 - 8.5 mg/dL [facility] Blood 03/06/2023 7:45 AM EST 03/06/2023 8:00 AM EST Narrative Resulting Agency Comment Spec In Lab Adrianne Ramon MD CHEMISTRY ORDERA BLES [facility] [place] [address] * Lactate Dehydrogenase (03/06/2023 7:45 AM EST) Lactate Dehydrogenase 198 110 - 220 unit/L [facility] Blood 03/06/2023 7:45 AM EST 03/06/2023 8:00 AM EST Narrative Resulting Agency Comment Spec In Lab Adrianne Ramon MD CHEMISTRY ORDERA BLES Performing Organization Address City/[facility] Co de Phone Number [facility] [place] [address] * (ABNORMAL) Immunoglobulins, Quantitative (03/06/2023 7:45 AM EST) Immunoglobulin G 572(L) 700 - 1,600 mg/dL [facility] Comment: Pediatric Reference Intervals obtained from the Caliper Reference Interval project. http://www.Conjure.ca/caliperproject/index.html IgA 118 70 - 400 mg/dL [facility] IgM 123 40 - 230 mg/dL [facility] Blood 03/06/2023 7:45 AM EST 03/06/2023 8:00 AM EST Narrative Resulting Agency Comment Spec In Lab Adrianne Ramon MD CHEMISTRY ORDERA BLES Performing Organization Address [facility] Co de Phone Number [facility] [place] [address] * (ABNORMAL) Comprehensive metabolic panel (non-fasting) (03/06/2023 7:45 AM EST) Glucose 133 65 - 199 mg/dL [facility] Comment:Diabetes: >=200 mg/d L plus symptoms Blood Urea Nitrogen 12 10 - 20 mg/dL [facility] Creatinine 0.94 0.80 - 1.50 mg/dL [facility] Sodium 143 135 - 145 mmol/L [facility] Potassium 3.7 3.5 - 5.0 mmol/L [facility] Comment: Please note: ??Patients with WBC >100,000 may have falsely elevated Potassium levels. ??For accurate Potassium quantification in these patients send serum separator tube (gold top) for subsequent determinations. ??Contact the Clinical Chemistry Laboratory if there are any questions. Chloride 108(H) 98 - 107 mmol/L [facility] Carbon Dioxide 23 22 - 31 mmol/L [facility] Anion Gap 12 5 - 15 mmol/L [facility] Calcium 9.6 8.5 - 10.5 mg/dL [facility] Protein, Total 6.4 6.1 - 8.0 g/dL [facility] Albumin 4.1 3.2 - 5.2 g/dL [facility] Aspartate Aminotransferase 22 0 - 39 unit/L [facility] Alanine Aminotransferase 18 0 - 55 unit/L [facility] Alkaline Phosphatase 103 40 - 130 unit/L [facility] Bilirubin, Total 0.2 0.2 - 1.3 mg/dL [facility] Est Glomerular Filtration Rate 85 >=60 mL/min/1. 73 m?? [facility] Comment: This patient's [...] Lab Adrianne Ramon MD CHEMISTRY ORDERA DANICAS [facility] [place] [address] * HIV Screen, 4th Generation ([facility]/CGP/APD/NLH) (10/17/2022 11:45 AM EDT) HIV Ab/Ag Screen Negative Negative [facility] Comment: This 4th Generation HIV test [...] HIV Comment Low Risk of HIV Infection [facility] Blood 10/17/2022 11:4 5 AM EDT 10/17/2022 12:08 PM EDT Narrative Resulting Agency Comment Spec In Lab Adrianne Ramon MD CHEMISTRY ORDERA BLES Performing Organization Address City/[facility] Co de Phone Number [facility] [place] [address] * Hepatitis C Antibody (10/17/2022 11:45 AM EDT) Hepatitis C Antibody Negative Negative [facility] Blood 10/17/2022 11:4 5 AM EDT 10/17/2022 12:08 PM EDT Narrative Resulting Agency Comment Spec In Lab Adrianne Ramon MD CHEMISTRY ORDERA BLES Performing Organization Address [facility] Co de Phone Number [facility] [place] [address] * IR Mediport Placement (10/17/2022 10:44 AM EDT) Anatomical Region Laterality Modality X-Ray Angiograph y Narrative 10/17/2022 11:06 AM EDT Interventional Radiology Procedure Note Procedure: Subcutaneous venous port implant Indication: Diffuse large B-cell lymphoma, durable half-way central venous access for chemotherapy Procedure summary: [...] questions please contact the health clinical care coordinator that requested your imaging first. ? Electronically signed by: Rohan Henley MD, [facility] ([phone]), at 10/12/2022 3:23 PM Narrative 10/12/2022 3:23 PM EDT EXAMINATION: NM PET CT STANDARD PLUS EXTREMITIES AND HEAD CLINICAL HISTORY: Non-Hodgkin lymphoma, staging new large B cell lymphoma - involving oropharynx/ cervical. ??staging. TECHNIQUE: Procedure: Following IV injection of 79-pkoeqs-9-deoxyglucose (FDG) a standard uptake of approximately 60 [...] staging. TECHNIQUE: Procedure: Following IV injection of 22-xpwgxe-3-deoxyglucose(FDG) a standard uptake of approximately 60 minutes, [...] have questions please contactthe health clinical care coordinator that requested your imaging first. Electronically signed by: Rohan Henley MD, [facility]([phone]), at 10/12/2022 3:23 PM Adrianne Ramon MD IMG PET ORDERABL ES * Comprehensive metabolic panel (non-fasting) (10/11/2022) Pathologist [facility] Blood Urea Nitrogen 20 Creatinine 1.2 Sodium 134 Potassium 4.0 Bilirubin, Total 0.3 Aspartate Aminotransferase 15 Alanine Aminotransferase 49 Lactate Dehydrogenase 283 Iron 62 Iron Saturation 29 Ferritin 139 TIBC 214 Blood 10/11/2022 Historical Provider CHEMISTRY ORDERAB LES * CBC (with Diff) (10/11/2022) Pathologist [facility] White Blood Cell 11.95 Hemoglobin 10.8 Hematocrit 32.1 Platelet 290 Neutrophil Absolute (ANC) - Automated 9.67 Blood 10/11/2022 Historical Provider HEMATOLOGY ORDERA BLES * Comprehensive metabolic panel (non-fasting) (09/30/2022) Pathologist [facility] Glucose 129 Blood Urea Nitrogen 24 Creatinine 1.3 Sodium 132 Potassium 3.4 Chloride 96 Carbon Dioxide 23 Calcium 9.0 Protein, Total 7.3 Albumin 3.6 Bilirubin, Total 0.3 Alkaline Phosphatase 115 Aspartate Aminotransferase 19 Alanine Aminotransferase 42 Blood 09/30/2022 Historical Provider CHEMISTRY ORDERAB LES * CBC (with Diff) (09/30/2022) White Blood Cell 13.34 Hemoglobin 13.0 Hematocrit 37.4 Platelet 320 Neutrophil Absolute (ANC) - Automated 9.02 Blood 09/30/2022 Historical Provider HEMATOLOGY ORDERA [...] regions documented in this encounter Care Teams Boston Cutter Relationship Specialty Start Date End Date Frederick Meade MD [address] [address] [place] [address] PCP - General Family Medicine 11/29/17 documented as of this encounter
--- OUTSIDE RECORDS SUMMARY | 2023-11-16 06:32 | XMS_ITS | Encounter Summary ---
[place] [address] Care Team Providers Care Helper Teacher Name Role Phone Frederick Meade MD Primary Care Provider [phone] Reason for Referral * Diagnostic Test (Routine) - Closed Specialty Diagnoses / Procedures Referred By Contac t Referred To Contact Cardiology Diagnoses Diffuse large B-cell lymphoma of lymph nodes of multiple regions Procedures Echocardiogram Transthoracic Adrianne Mera MD [facility] DR HEMATOLOGY [place] [address] [facility] [place] [address] Referral ID Status Reason Start Date Expiration Date V isits Requested Visits Authorized [id number] Closed Specialty Service Requested 10/11/2022 10/11/2023 1 1 Reason for Visit * Diagnostic Test (Routine) - Closed Specialty Diagnoses / Procedures Referred By Contac t Referred To Contact Cardiology Diagnoses Diffuse large B-cell lymphoma of lymph nodes of multiple regions Procedures Echocardiogram Transthoracic Adrianne Mera MD [facility] DR HEMATOLOGY [place] [address] [facility] [place] [address] Referral ID Status Reason Start Date Expiration Date V isits Requested Visits Authorized [id number] Closed Specialty Service Requested 10/11/2022 10/11/2023 1 1 Encounter Details Date Type Department Care Team (Late st Contact Info) Description 10/12/2022 9:05 AM EDT - 10/12/2022 10:25 AM EDT Hospital Encounter Non-Invasive Cardiology Lab [facility] [place] [address] Adrianne Mera MD [facility] DR HEMATOLOGY [place] [address] Diffuse large B-cell lymphoma of lymph nodes [...] AM EDT Office Visit Hematology/Oncology at [address] [phone] Adrianne Mera MD [facility] DR HEMATOLOGY [place] [address] Yael Merlos APRN [facility] [place]OLOGY [place] [address] 11/21/2023 10:00 AM EDT Infusion Hematology Oncology at [address] [phone] 11/23/2023 11:00 AM EDT Office Visit [place]ematology [place] [address] Reynold Proctor MD [facility] [place] [place] [address] 11/23/2023 1:00 PM EDT Appointment Hematology [place] [phone] 11/23/2023 2:00 PM EDT Office Visit Hematology and Oncology at [place] [phone] Micha Givens Jr., MD [facility] DR HEMATOLOGY [place] [address] 11/23/2023 3:30 PM EDT Hospital Encounter MRI at [place] [phone] Micha Givens Jr., MD [facility] HEMATOLOGY [place] [address] documented as of this encounter Procedures Procedure [...] 09:33 AMBP: 164/86 mmHg ? Patient Location: [facility] : 1950 ? Height: 168 cm ? Account: [id number] Age: 72 yrs ? Weight: 97 kg Gender: Male ?BSA: 2.1 m2 Ordering Physician: ADRIANNE MERA Referring Physician: ADRIANNE MERA Performed By: Teresa Villafuerte RDCS Reason For Study: Diffuse large B-cell lymphoma of lymph nodes of multiple regions Exam Location: [facility]. Interpretation Summary Left ventricle is of normal [...] findings. No comparison study is available. Procedure Complete-[id number]. Satisfactory quality. Left Ventricle Left ventricle is [...] Date: 309:33 AMBP: 164/86 mmHg Patient Location: [facility] : 1950 Height: 168 cm Account: [id number] Age: 72 yrs Weight: 97 kg Gender: Male BSA: 2.1 m2 Ordering Physician: ADRIANNE MERA Referring Physician: ADRIANNE MERA Performed By: Teresa Villafuerte RDCS Reason For Study: Diffuse large B-cell lymphoma of lymph nodes ofmultiple regions Exam Location: [facility]. Interpretation Summary Left ventricle is of normal [...] findings. No comparison study is available. Procedure Complete-[id number]. Satisfactory quality. Left Ventricle Left ventricle is [...] mmHg . The estimated right atrial pressure [id number]. There is Grade I LV diastolic dysfunction [...] regions documented in this encounter Care Teams Helper Teacher Relationship Specialty Start Date End Date Frederick Meade MD [address] [place] [address] [address] [facility] [address] [place] [address] PCP - General Family Medicine 11/29/17 documented as of this encounter
--- OUTSIDE RECORDS SUMMARY | 2023-11-16 06:32 | XMS_ITS | Encounter Summary ---
[place] [address] Care Team Providers Care Bobbin Cleaning Machine Operator Name Role Phone Frederick Meade MD Primary Care Provider [phone] Reason for Visit * Reason Comments Radiation Follow-up prostate cancer Encounter Details Date Type Department Care Team (Late st Contact Info) Description 11/29/2017 1:45 PM EDT Office Visit Radiation Oncology at [address] [phone] [address] Carr [address] [place] [address] Malignant neoplasm of prostate Social [...] Visit from 11/29/2017 in Radiation Oncology at [facility] Weight 93.2 kg (205 lb 6.4 [...] elevated at 5.4 with only 9% free. [place] with Dr. Vergara July 2014 who offered biopsy which was performed 09/01/14, demonstrating Gleason4 + 3 disease in a single core at the right apex. Forty-five percent of that core did appear to be involved. Perineural invasion was not seen. Pathology had been reviewed here at [facility]. The patient is here today [...] the prostate Field orientation: Dynamic arc VMAT Repairer Target Coverage (70Gy isodose line indicated): Hormone [...] Biopsy 09/01/2014 Volume in cc 15 cc [place] grade/score a+b=c 4+3=7-- intermediate risk prostate cancer [...] ??? 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 He was treated with external beam [...] AM EDT Office Visit Hematology/Oncology at [address] [phone] Adrianne Ramon MD [facility] DR [place] [address] Yael Merlos APRN [facility] [place] [address] 11/21/2023 10:00 AM EDT Infusion Hematology Oncology at [address] [phone] 11/23/2023 11:00 AM EDT Office Visit Hematology [place] [phone] Reynold Proctor MD [facility] [place] [address] 11/23/2023 1:00 PM EDT Appointment Hematology [place] [address] 11/23/2023 2:00 PM EDT Office Visit Hematology [place] [address] Micha Givens Jr., MD [facility] DR [place] [address] 11/23/2023 3:30 PM EDT Hospital [place] [address] Micha Givens Jr., MD [facility] DR [place] [address] documented as of this encounter Procedures Procedure [...] prostate documented in this encounter Care Teams Bobbin Cleaning Machine Operator Relationship Specialty Start Date End Date Frederick Meade MD [address] [place] [address] PCP - General Family Medicine 11/29/17 documented as of this encounter
--- OUTSIDE RECORDS SUMMARY | 2023-11-16 06:32 | XMS_ITS | Encounter Summary ---
Author Organization [facility] [place] [address] Care Team Providers Care Java Application Engineer Name Role Phone Bobby Headley MD Primary Care Provider [phone] Encounter Details Date Type Department Care Team (Late st Contact Info) Description 05/24/2016 11:00 AM EDT Office Visit Hematology/Oncology at [address] [address] Annika Quezada APRN [facility] [place] [address] Prostate cancer Social History Tobacco Use Types [...] prostate cancer with pretreatment PSA of 5.4 [place] 4+3=7. He was treated with external beam [...] elevated at 5.4 with only 9% free. [place] with Dr. Vergara July 2014 who offered biopsy which was performed 09/01/14, demonstrating Gleason4 + 3 disease in a single core at the right apex. Forty-five percent of that core did appear to be involved. Perineural invasion was not seen. Pathology had been reviewed here at [facility]. 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 Smoking status: Former Smoker Packs/day: 1.00 Types: Cigarettes ??? Smokeless tobacco: Former User Quit date: 02/19/1986 Comment: started smoking in [facility] ??? Alcohol use 1.8 oz/week 3 Standard [...] to their sporting events. He went to [place] last September to attend a [employer] tournament andhad a great time. He feels [...] AM EDT Office Visit Hematology/Oncology at [address] [address] Adrianne Ramon MD [facility] [place] [address] Yael Merlos APRN [facility] [place] [address] 11/21/2023 10:00 AM EDT Infusion Hematology Oncology at [address] [address] 11/23/2023 11:00 AM EDT Office Visit Hematology [place] [address] Reynold Proctro MD [facility] [place] [place] [address] 11/23/2023 1:00 PM EDT Appointment Hematology [place] [address] 11/23/2023 2:00 PM EDT Office Visit Hematology [place] [address] Micha Givens Jr., MD [facility] DR HEMATOLOG[place] [address] 11/23/2023 3:30 PM EDT Hospital [place] [address] Micha Givens Jr., MD [facility] DR [place] [address] documented as of this encounter Visit Diagnoses Diagnosis Prostate cancer Malignant neoplasm of prostate documented in this encounter Care Teams Java Application Engineer Relationship Specialty Start Date End Date Bobby Headley MD [address] [place] [address] PCP - General 01/29/14 11/28/17 documented as of this encounter
--- OUTSIDE RECORDS SUMMARY | 2023-11-16 06:32 | XMS_ITS | Encounter Summary ---
Author Organization [facility] [place] [address] Care Team Providers Care Tig Welder Name Role Phone Frederick Meade MD Primary Care Provider [phone] Reason for Referral * Consultation (Routine) - Closed Specialty Diagnoses / Procedures Referred By Contac t Referred To Contact Hematology and Oncology Diagnoses Diffuse large B-cell lymphoma, unspecified body region Lg Ramírez MD [address] [place] [address] [facility] Hem Onc Office [address] [place] [phone] Referral ID Status Reason Start Date Expiration Date V isits Requested Visits Authorized [id number] Closed Consult, Test & Treat 10/10/2022 10/10/2023 1 1 Encounter Details Date Type Department Care Team (Late st Contact Info) Description 10/10/2022 Transcribe Orders eDH Incoming Referrals [phone] Lg Ramírez MD [address] [place] [phone] Diffuse large B-cell lymphoma, unspecified body region [...] AM EDT Office Visit Hematology/Oncology at [address] [phone] Adrianne Ramon MD [facility] [place] [address] Yael Merlos APRN [facility] [place] [address] 11/21/2023 10:00 AM EDT Infusion Hematology Oncology at [address] [address] 11/23/2023 11:00 AM EDT Office Visit Hematology [place] [address] Reynold Proctor MD [facility] [place] [place] [address] 11/23/2023 1:00 PM EDT Appointment Hematology [place] [address] 11/23/2023 2:00 PM EDT Office Visit Hematology [place] [address] Micha Givens Jr., MD [facility] DR HEMATOLOGY [place] [address] 11/23/2023 3:30 PM EDT Hospital [place] [address] Micha Givens Jr., MD [facility] DR HEMATOLOGY [place] [address] Scheduled Referrals Name Type Priority Associated Diagnoses Orde r Schedule Referral to Hematology and Oncology Outpatient Referral Routine Diffuse large B-cell lymphoma, unspecified body region Ordered: 10/10/2022 documented as of this encounter Visit Diagnoses Diagnosis Diffuse large B-cell lymphoma, unspecified body region documented in this encounter Care Teams Tig Welder Relationship Specialty Start Date End Date Frederick Meade MD [address] [place] [address] [address] [place] [address] PCP - General Family Medicine 11/29/17 documented as of this encounter
--- OUTSIDE RECORDS SUMMARY | 2023-11-16 06:32 | XMS_ITS | Encounter Summary ---
Author Organization [facility] [place] [address] Care Team Providers Care Track Announcer Name Role Phone Frederick Meade MD Primary Care Provider [phone] Reason for Referral * Diagnostic Test (Routine) - Closed Specialty Diagnoses / Procedures Referred By Contac t Referred To Contact Radiology Diagnoses Non-Hodgkin lymphoma of lymph nodes of multiple regions, unspecified non-Hodgkin lymphoma type Diffuse large B-cell lymphoma of lymph nodes of multiple regions Procedures NM PET CT Standard Plus Extremities and Head Adrianne Ramon MD [facility] DR [place] [address] [place] [address] Referral ID Status Reason Start Date Expiration Date V isits Requested Visits Authorized [id number] Closed Specialty Service Requested 10/10/2022 04/12/2024 1 [...] Plus Extremities and Head Adrianne Ramon MD [facility] DR [place]AT[place] [address] [facility] [place] [address] Referral ID Status Reason Start Date Expiration Date V isits Requested Visits Authorized [id number] Closed Specialty Service Requested 10/10/2022 04/12/2024 1 2 Encounter Details Date Type Department Care Team (Late st Contact Info) Description 10/12/2022 10:26 AM EDT - 10/12/2022 11:59 PM EDT Hospital Encounter [place] [phone] Adrianne Ramon MD [facility] DR [place]ATOLOG[place] [address] Non-Hodgkin lymphoma of lymph nodes [...] AM EDT Office Visit Hematology/Oncology at [address] [address] Adrianne Ramon MD [facility] H[place]ATOLOG[place] [address] Yael Merlos, PEARL FISHERMAN [facility] [place]ATOLOG[place] [address] 11/21/2023 10:00 AM EDT Infusion Hematology Oncology at [address] [address] 11/23/2023 11:00 AM EDT Office Visit Hematology [place] [address] Reynold Proctor MD [facility] [place] [address] 11/23/2023 1:00 PM EDT Appointment Hematology [place] [address] 11/23/2023 2:00 PM EDT Office Visit Hematology [place] [phone] Micha Givens Jr., MD [facility] DR HEMATOLOGY [place] [address] 11/23/2023 3:30 PM EDT Hospital Encounter MRI at [place] [phone] Micha Givens Jr., MD [facility] DR [place]EMATOLOG[place] [address] documented as of this encounter Procedures Procedure [...] ? Electronically signed by: Rohan Henley MD, [facility] ([phone]), at 10/12/2022 3:23 PM Narrative 10/12/2022 3:23 PM EDT EXAMINATION: NM PET CT STANDARD PLUS EXTREMITIES AND HEAD CLINICAL HISTORY: Non-Hodgkin lymphoma, staging new large B cell lymphoma - involving oropharynx/ cervical. ??staging. TECHNIQUE: Procedure: Following IV injection of 95-vlurfq-3-deoxyglucose (FDG) a standard uptake of approximately 60 [...] staging. TECHNIQUE: Procedure: Following IV injection of 25-nkicni-5-deoxyglucose(FDG) a standard uptake of approximately 60 minutes, [...] mCi documented in this encounter Care Teams Track Announcer Relationship Specialty Start Date End Date Frederick Meade MD [address] [place] [address] PCP - General Family Medicine 11/29/17 documented as of this encounter
--- OUTSIDE RECORDS SUMMARY | 2023-11-16 06:32 | XMS_ITS | Encounter Summary ---
[place] [address] Care Team Providers Care Endless Bed Drum Sander Name Role Phone Bobby Headley MD Primary Care Provider [phone] Encounter Details Date Type Department Care Team (Late st Contact Info) Description 01/07/2015 8:00 AM EST Office Visit Radiation Oncology at [address] [address] Nitin Stauffer MD [address] [place] [address] DR RADIATION ONCOLOGY [place], [place] [phone] Malignant neoplasm of prostate Social History Tobacco [...] Uncontrollable bleeding A Radiation Oncology doctor is service liaison representative after our normal hours and on weekends. To call for urgent medical issues from radiation treatments that can not wait until normal business hours, please call and have the humidifier operator page the Radiation Oncologist service liaison representative. Nitin Ramirez MD documented in this encounter Progress Notes * Nitin Stauffer MD - 01/07/2015 8:02 AM EST [facility] [...] Office Visit Hematology/Oncology at [address] [address] Adrianne Ramon MD [facility] DR HEMATOLOGY [place] [address] Yael Merlos APRN [facility] HEMATOLOGY [place] [address] 11/21/2023 10:00 AM EDT Infusion Hematology Oncology at [address] [address] 11/23/2023 11:00 AM EDT Office Visit [place]ematology [place] [address] Reynold Proctor MD [facility] [place] [place] [address] 11/23/2023 1:00 PM EDT Appointment Hematology and Oncology at [place] [phone] 11/23/2023 2:00 PM EDT Office Visit Hematology and Oncology at [place] [phone] Micha Givens Jr., MD [facility] DR HEMATOLOGY [place] [address] 11/23/2023 3:30 PM EDT Hospital Encounter MRI at [place] [phone] Micha Givens Jr., MD [facility] DR HEMATOLOGY [place] [address] documented as of this encounter Visit Diagnoses Diagnosis Malignant neoplasm of prostate documented in this encounter Care Teams Endless Bed Drum Sander Relationship Specialty Start Date End Date Bobby Headley MD [address] [place] [address] PCP - General 01/29/14 11/28/17 documented as of this encounter
--- OUTSIDE RECORDS SUMMARY | 2023-11-16 06:32 | XMS_ITS | Encounter Summary ---
Author Organization [place] [address] Care Team Providers Care Airport Baggage Screener Name Role Phone Frederick Meade MD Primary Care Provider [phone] Encounter Details Date Type Department Care Team (Late st Contact Info) Description 10/11/2022 External [place] [phone] Provider, Scanning Social History Tobacco Use Types [...] AM EDT Office Visit Hematology/Oncology at [address] [address] Adrianne Ramon MD [facility] DR [place] [address] Yael Merlos APRN [facility] DR [place] [address] 11/21/2023 10:00 AM EDT Infusion Hematology Oncology at [address] [address] 11/23/2023 11:00 AM EDT Office Visit [place]ology [place] [address] Reynold Proctor MD [facility] [place] [address] 11/23/2023 1:00 PM EDT Appointment Hematology [place] [address] 11/23/2023 2:00 PM EDT Office Visit [place]ology [place] [address] Micha Givens Jr., MD [facility] DR [place] [address] 11/23/2023 3:30 PM EDT [place] [address] Micha Givens Jr., MD [facility] [place] [address] documented as of this encounter Procedures Procedure Name Priority Date/Time Associated Diagnosis Comments SURGICAL PATHOLOGY SCAN Routine 10/11/2022 documented in this encounter Results * Scan Doc: Surgical Pathology (10/11/2022) Historical Provider MD LOPEZ MGR SCAN EX T ORDR/RSLT documented in this encounter Visit Diagnoses Not on filedocumented in this encounter Care Teams Airport Baggage Screener Relationship Specialty Start Date End Date Frederick Meade MD [address] [place] [address] PCP - General Family Medicine 11/29/17 documented as of this encounter
--- OUTSIDE RECORDS SUMMARY | 2023-11-16 06:32 | XMS_ITS | Encounter Summary ---
Author Organization [facility] [place] [address] Care Team Providers Care Natural Resources Professor Name Role Phone Bobby Headley MD Primary Care Provider [phone] Encounter Details Date Type Department Care Team (Latest Contact Info) Description 01/07/2015 Unscheduled Encounter Hematology/Oncology at [address] [address] [facility] [place] [address] Dietary counseling and surveillance; Dietary counseling Social [...] Narvaez RD - 01/07/2015 8:45 AM EST [facility] Initial Dietitian Assessment Seen By: Gay Narvaez MS, RD, PHOTOENGRAVING APPRENTICE, LD Referred by: Dr. Stauffer Reason for [...] AM EDT Office Visit Hematology/Oncology at [address] [phone] Adrianne Ramon MD [facility] HEMATOLOGY [place] [address] Yael Merlos APRN [facility] [place] [address] 11/21/2023 10:00 AM EDT Infusion Hematology Oncology at [address] [phone] 11/23/2023 11:00 AM EDT Office Visit Hematology and Oncology at [place] [phone] Reynold Proctor MD [facility] [address] 11/23/2023 1:00 PM EDT Appointment Hematology [place] [address] 11/23/2023 2:00 PM EDT Office Visit Hematology and Oncology at [place] [phone] Micha Givens Jr., MD [facility] [place] [address] 11/23/2023 3:30 PM EDT [place] [address] Micha Givens Jr., MD [facility] [place] [address] documented as of this encounter Visit Diagnoses Diagnosis Dietary counseling and surveillance Dietary surveillance and counseling Dietary counseling Dietary surveillance and counseling documented in this encounter Care Teams Natural Resources Professor Relationship Specialty Start Date End Date Bobby Headley MD [address] [place] [address] PCP - General 01/29/14 11/28/17 documented as of this encounter
--- OUTSIDE RECORDS SUMMARY | 2023-11-16 06:32 | XMS_ITS | Encounter Summary ---
[place] [address] Care Team Providers Care Flight Communications Operator Name Role Phone Bobby Headley MD Primary Care Provider [phone] Reason for Visit * Reason Comments On Treatment Visit Encounter Details Date Type Department Care Team (Late st Contact Info) Description 01/19/2015 8:00 AM EST Office Visit Radiation Oncology at [address] [address] Nitin Stauffer MD [address] [place] [address] [place] [address] Cancer of prostate with intermediate [...] Uncontrollable bleeding A Radiation Oncology doctor is risk control field representative after our normal hours and on weekends. To call for urgent medical issues from radiation treatments that can not wait until normal business hours, please call and have the reciprocating drill operator page the Radiation Oncologist risk control field representative. Nitin Ramirez. MD Eh documented in this encounter Progress Notes * Nitin Stauffer MD - 01/19/2015 8:11 AM EST [facility] On Treatment Visit Patient ID: [id number] [...] AM EDT Office Visit Hematology/Oncology at [address] [address] Adrianne Ramon MD [facility] [place] [address] Yael Merlos APRN [facility] [place] [address] 11/21/2023 10:00 AM EDT Infusion Hematology Oncology at [address] [address] 11/23/2023 11:00 AM EDT Office Visit Hematology [place] [address] Reynold Proctor MD [facility] [place] [address] 11/23/2023 1:00 PM EDT Appointment Hematology [place] [address] 11/23/2023 2:00 PM EDT Office Visit Hematology [place] [phone] Micha Givens Jr., MD [facility] DR HEMATOLOGY [place] [address] 11/23/2023 3:30 PM EDT Hospital [place] [address] Micha Givens Jr., MD [facility] DR HEMATOLOGY [place] [address] documented as of this encounter Visit Diagnoses Diagnosis Cancer of prostate with intermediate recurrence risk (stage T2b-c or [place] 7 or PSA 10-20) Malignant neoplasm of prostate documented in this encounter Care Teams Flight Communications Operator Relationship Specialty Start Date End Date Bobby Headley MD [address] [place] [address] PCP - General 01/29/14 11/28/17 documented as of this encounter
--- OUTSIDE RECORDS SUMMARY | 2023-11-16 06:32 | XMS_ITS | Encounter Summary ---
Author Organization [facility] [place] [address] Care Team Providers Care License And Permit Specialist Name Role Phone Frederick Meade MD Primary Care Provider [phone] Encounter Details Date Type Department Care Team [...] AM EDT Office Visit Hematology/Oncology at [address] [address] Adrianne Ramon MD [facility] DR [place] [address] Yael Merlos APRN [facility] DR [place] [address] 11/21/2023 10:00 AM EDT Infusion Hematology Oncology at [address] [address] 11/23/2023 11:00 AM EDT Office Visit Hematology [place] [phone] Reynold Proctor MD [facility] [place] [address] 11/23/2023 1:00 PM EDT Appointment Hematology [place] [address] 11/23/2023 2:00 PM EDT Office Visit [place]ematology [place] [address] Micha Givens Jr., MD [facility] [place] [address] 11/23/2023 3:30 PM EDT Hospital [place] [address] Micha Givens Jr., MD [facility] DR [place] [address] documented as of this encounter Visit Diagnoses Not on filedocumented in this encounter Care Teams License And Permit Specialist Relationship Specialty Start Date End Date Frederick Meade MD [address] [place] [address] [address] [place] [address] PCP - General Family Medicine 11/29/17 documented as of this encounter
--- OUTSIDE RECORDS SUMMARY | 2023-11-16 06:32 | XMS_ITS | Encounter Summary ---
[place] [address] Care Team Providers Care Recreation Specialist Name Role Phone Bobby Headley MD Primary Care Provider [phone] Reason for Visit * Reason Comments Radiation Follow-up prostate cancer Encounter Details Date Type Department Care Team (Late st Contact Info) Description 05/31/2017 11:15 AM EDT Office Visit Radiation Oncology at [address] [phone] [address] Carr [address] RADIATION ONCOLOGY [place], [place] [phone] Malignant neoplasm of prostate Social History Tobacco [...] Visit from 05/31/2017 in Radiation Oncology at [facility] Weight 91.7 kg (202 lb 3.2 [...] elevated at 5.4 with only 9% free. [place] with Dr. 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 Smoking [...] sporting events. He will be going to [place] in September to attend a [employer] tournament. He feels he is coping well. [...] Visit from 05/31/2017 in Radiation Oncology at [facility] Weight 91.7 kg (202 lb 3.2 [...] content normal. Vitals reviewed. 05/24/2017 labs CA=9.3, LKW=149, BUN=37, CREAT=1.45, EGFR=48.25, EG=267, K=3.4, LM=504, CO2=25.1, MG=2.0 Date PSA testosterone 05/23/2017 < [...] AM EDT Office Visit Hematology/Oncology at [address] [address] Adrianne Ramon MD [facility] [place] [address] Yael Merlos APRN [facility] [place]AT[place] [address] 11/21/2023 10:00 AM EDT Infusion Hematology Oncology at [address] [address] 11/23/2023 11:00 AM EDT Office Visit Hematology [place] [address] Reynold Proctor MD [facility] [place] [address] 11/23/2023 1:00 PM EDT Appointment Hematology and Oncology at [place] [address] 11/23/2023 2:00 PM EDT Office Visit Hematology and Oncology at [address] Micha Givens Jr., MD [facility] DR [place]AT[place] [address] 11/23/2023 3:30 PM EDT [place] [address] Micha Givens Jr., MD [facility] DR [place]AT[place] [address] documented as of this encounter Visit Diagnoses Diagnosis Malignant neoplasm of prostate documented in this encounter Care Teams Recreation Specialist Relationship Specialty Start Date End Date Bobby Headley MD [address] [place] [address] PCP - General 01/29/14 11/28/17 documented as of this encounter
--- OUTSIDE RECORDS SUMMARY | 2023-11-16 06:32 | XMS_ITS | Encounter Summary ---
Author Organization [facility] [place] [address] Care Team Providers Care Tele Grout Sewer Line Repairer Name Role Phone Bobby Headley MD Primary Care Provider Encounter Details Date Type Department Care Team (Late st Contact Info) Description 12/01/2015 10:15 AM EDT Office Visit Hematology/Oncology at [address] [phone] Annika Quezada APRN [facility] [place] [address] Prostate cancer Social History Tobacco Use Types [...] prostate cancer with pretreatment PSA of 5.4 Houlton 4+3=7. He was treated with external beam [...] elevated at 5.4 with only 9% free. [place] with Dr. Vergara July 2014 who offered biopsy which was performed 09/01/14, demonstrating Gleason4 + 3 disease in a single core at the right apex. Forty-five percent of that core did appear to be involved. Perineural invasion was not seen. Pathology had been reviewed here at [facility]. 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 Smoking [...] to their sporting events. He went to [place] in September to attend a [employer] tournament and had a great time. He [...] AM EDT Office Visit Hematology/Oncology at [address] [address] Adrianne Ramon MD [facility] DR HEMATOLOGY [place] [address] Yael Merlos APRN [facility] HEMATOLOGY [place] [address] 11/21/2023 10:00 AM EDT Infusion Hematology Oncology at [address] [address] 11/23/2023 11:00 AM EDT Office Visit Hematology [place] [address] Reynold Proctor MD [facility] [place] [address] 11/23/2023 1:00 PM EDT Appointment Hematology [place] [address] 11/23/2023 2:00 PM EDT Office Visit Hematology [place] [address] Micha Givens Jr., MD [facility] DR HEMATOLOGY [place] [address] 11/23/2023 3:30 PM EDT Hospital [place] [address] Micha Givens Jr., MD [facility] DR HEMATOLOGY [place] [address] documented as of this encounter Visit Diagnoses Diagnosis Prostate cancer Malignant neoplasm of prostate documented in this encounter Care Teams Tele Grout Sewer Line Repairer Relationship Specialty Start Date End Date Bobby Headley MD [address] [address] PCP - General 01/29/14 11/28/17 documented as of this encounter
--- OUTSIDE RECORDS SUMMARY | 2023-11-16 06:32 | XMS_ITS | Encounter Summary ---
Author Organization [facility] [place] [address] Care Team Providers Care Medication Care Manager Name Role Phone Bobby Headley MD Primary Care Provider [phone] Encounter Details Date Type Department Care Team (Late st Contact Info) Description 01/12/2015 8:15 AM EST Office Visit Radiation Oncology at [address] [phone] Nitin Stauffer MD [address] [place] [address] DR RADIATION ONCOLOGY [place], [place] [id number] Cancer of prostate with intermediate recurrence risk [...] encounter Patient Instructions * Patient Instructions* Nitin Stafufer MD - 01/12/2015 8:00 AM EST Dear [...] bleeding A Radiation Oncology doctor is information lead after our normal hours and on weekends. To call for urgent medical issues from radiation treatments that can not wait until normal business hours, please call and have the tumbler machine operator helper page the Radiation Oncologist information lead. Nitin Ramirez MD documented in this encounter Progress Notes * Nitin Stauffer MD - 01/12/2015 7:58 AM EST [facility] [...] AM EDT Office Visit Hematology/Oncology at [address] [address] Adrianne Ramon MD [facility] [address] [place] [address] Yael Merlos APRN [facility] [place] [address] 11/21/2023 10:00 AM EDT Infusion Hematology Oncology at [address] [address] 11/23/2023 11:00 AM EDT Office Visit Hematology [place] [address] Reynold Proctor MD [facility] [place] [address] 11/23/2023 1:00 PM EDT Appointment Hematology [place] [address] 11/23/2023 2:00 PM EDT Office Visit Hematology [place] [address] Micha Givens Jr., MD [facility] [place] [address] 11/23/2023 3:30 PM EDT Hospital [place] [phone] Micha Givens Jr., MD [facility] [place] [address] documented as of this encounter Visit Diagnoses Diagnosis Cancer of prostate with intermediate recurrence risk (stage T2b-c or Cierra 7 or PSA 10-20) Malignant neoplasm of prostate documented in this encounter Care Teams Medication Care Manager Relationship Specialty Start Date End Date Bobby Headley MD [address] [place] [address] PCP - General 01/29/14 11/28/17 documented as of this encounter
--- OUTSIDE RECORDS SUMMARY | 2023-11-16 06:32 | XMS_ITS | Encounter Summary ---
Author Organization [facility] [place] [address] Care Team Providers Care Warehouse Record Clerk Name Role Phone Frederick Meade MD Primary Care Provider [phone] Encounter Details Date Type Department Care Team (Latest Contact Info) Description 10/11/2022 3:11 PM EDT - 10/11/2022 11:59 PM EDT [place] [phone] Discharge Disposition: Home Social History Tobacco Use [...] AM EDT Office Visit Hematology/Oncology at [address] [address] Adrianne Ramon MD [facility] [place] [address] Yael Merlos, FISH CUTTER [facility] [place] [address] 11/21/2023 10:00 AM EDT Infusion Hematology Oncology at [address] [address] 11/23/2023 11:00 AM EDT Office Visit Hematology and Oncology at [place] [phone] Reynold Proctor MD [facility] [place] [address] 11/23/2023 1:00 PM EDT Appointment Hematology and Oncology at [address] 11/23/2023 2:00 PM EDT Office Visit Hematology and Oncology at [place] [phone] Micha Givens Jr., MD [facility] DR HEMATOLOGY [place] [address] 11/23/2023 3:30 PM EDT Hospital Encounter MRI at [place] [phone] Micha Givens Jr., MD [facility] [place] [address] documented as of this encounter Procedures Procedure Name Priority Date/Time Associated Diagnosis Comments SURGICAL PATHOLOGY REPORT Routine 10/11/2022 3:13 PM EDT documented in this encounter Results * Surgical Pathology Report (10/11/2022 3:13 PM EDT) Final Diagnosis [id number] ? Location: OPW The signing pathologist has (i) examined the relevant preparation(s) for the specimen(s) and (ii) rendered or confirmed the diagnosis(es). . ?Surgical Pathology DIAGNOSIS CONSULTATION CASE ?? A. TONGUE, LEFT BASE (BIOPSY); [OSR# [id number], COLLECTED 10/05/2022, 12 SLIDES]: ?? 1. Diffuse large B-cell lymphoma, activated B-cell subtype (ABC-DLBCL) (see ?comment) ?? 2. Ki67 proliferation estimated at >95%, lymphoma coexpresses BCL2 and CMYC Electronically signed by: ?Ole Bowen MD Verified: ??10/12/2022 11:37 ??Hematopathologist Performed at: ??-[facility] Dept. of Pathology, [place] [address] Custom Feed Corn Operator: Katherine Lopez MD, FCAP, ??CLIA Certificate: [id number] DISCUSSION Per report from the referring institution, ...Flow cytometry ([id number]) supports this interpretation. FISH studies were reportedly sent to [facility] to assess for [...] referring facility, but included for evaluation at [facility]. Appropriate controls are included for each case. . SPECIMEN(S) SUBMITTED CONSULTATION CASE A - 12 slide(s) labeled [id number], collection date 10/05/2022. [id number] CARBON COPY: [facility] Surgical Pathology Department [facility], [facility], 2nd Floor [address] [place], [place] ??[address] CLINICAL INFORMATION A 72 year old man. Per provided report, there is a clinical history of Massive LAD, history of prostate cancer; clinical diagnosis code: R59.1. SPECIMEN PROCESSING [facility] ([facility]) pathology slide(s) are reviewed. Refer to Diagnosis and Specimen Submitted for specific case information. For the full text of the [facility] report(s) please refer to the Chart Review Media tab in the electronic health record (eDH). 10/12/2022 11:37 AM EDT [facility] Consult Case 10/11/2022 3:13 PM EDT 10/11/2022 3:13 PM EDT Adrianne Ramon MD PATHOLOGY/CYTOLO GY ORDERABLES [facility] [place] [address] [facility] [place] [address] documented in this encounter Visit Diagnoses Not on filedocumented in this encounter Care Teams Warehouse Record Clerk Relationship Specialty Start Date End Date Frederick Meade MD [address] [place] [address] PCP - General Family Medicine 11/29/17 documented as of this encounter
--- OUTSIDE RECORDS SUMMARY | 2023-11-16 06:32 | XMS_ITS | Encounter Summary ---
[place] [address] Care Team Providers Care Electrical Contractor Name Role Phone Bobby Headley MD Primary Care Provider Encounter Details Date Type Department Care Team (Late st Contact Info) Description 02/01/2015 Notes Only Radiation Oncology at [address] [phone] Nitin Stauffer MD [address] [place] [address] DR RADIATION ONCOLOGY [place], [place] [phone] Social History Tobacco Use Types Packs/Day Years [...] his prostate and proximal SV at the [facility] in [place], [place]. Details of his radiation treatment course are as below. RT information: Date of RT Start: 11/25/14 Date of RT Completion: 01/26/15 Dose and targets: 70.2 Gy to the proximal SV and prostate, 79.2Gy to the prostate Field orientation: Dynamic arc VMAT Furnace Builder Target Coverage (70Gy isodose line indicated): SPECIAL [...] AM EDT Office Visit Hematology/Oncology at [address] [phone] Adrianne Ramon MD [facility] [place] [address] Yael Merlos APRN [facility] [place] [address] 11/21/2023 10:00 AM EDT Infusion Hematology Oncology at [address] [phone] 11/23/2023 11:00 AM EDT Office Visit Hematology [place] [address] Reynold Proctor MD [facility] [place] [address] 11/23/2023 1:00 PM EDT Appointment Hematology [place] [address] 11/23/2023 2:00 PM EDT Office Visit Hematology and Oncology at [place] [phone] Micha Givens Jr., MD [facility] [place] [address] 11/23/2023 3:30 PM EDT Hospital Encounter MRI at [place] [phone] Micha Givens Jr., MD [facility] [place] [address] documented as of this encounter Visit Diagnoses Not on filedocumented in this encounter Care Teams Electrical Contractor Relationship Specialty Start Date End Date Bobby Headley MD [address] [place] [address] PCP - General 01/29/14 11/28/17 documented as of this encounter
--- OUTSIDE RECORDS SUMMARY | 2023-11-16 06:32 | XMS_ITS | Encounter Summary ---
[place] [address] Care Team Providers Care Assistant Field Hockey Coach Name Role Phone Bobby Headley MD Primary Care Provider [phone] Reason for Visit * Reason Comments Radiation Follow-up prostate cancer Encounter Details Date Type Department Care Team (Late st Contact Info) Description 09/09/2015 10:30 AM EDT Office Visit Radiation Oncology at [address] [phone] Anna Carr [address] RADIATION [place] [address] Malignant neoplasm of prostate Social [...] 5.4 Vitals Office Visit from 09/09/2015 in [facility] Radiation Oncology Weight - Scale 93.4 [...] prostate cancer with pretreatment PSA of 5.4 Cope 4+3=7. He was treated with external beam [...] elevated at 5.4 with only 9% free. [place] with Dr. Vergara July 2014 who offered biopsy which was performed 09/01/14, demonstrating Gleason4 + 3 disease in a single core at the right apex. Forty-five percent of that core did appear to be involved. Perineural invasion was not seen. Pathology had been reviewed here at [facility]. The patient is here today to [...] the prostate Field orientation: Dynamic arc VMAT Figure Model Target Coverage (70Gy isodose line indicated): Hormone [...] of education: N/A Occupational History ??? 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 Smoking [...] sporting events. He will be going to [place] in September to attend a [employer] tournament. He feels he is coping well. [...] 100 Vitals Office Visit from 09/09/2015 in [facility] Radiation Oncology Weight - Scale 93.4 [...] AM EDT Office Visit Hematology/Oncology at [address] [phone] Adrianne Ramon MD [facility] DR [place] [address] Yael Merlos APRN [facility] DR [place] [address] 11/21/2023 10:00 AM EDT Infusion Hematology Oncology at [address] [address] 11/23/2023 11:00 AM EDT Office Visit Hematology [place] [address] Reynold Proctor MD [facility] [place] [address] 11/23/2023 1:00 PM EDT Appointment Hematology [place] [address] 11/23/2023 2:00 PM EDT Office Visit Hematology [place] [address] Micha Givens Jr., MD [facility] DR [place] [address] 11/23/2023 3:30 PM EDT Hospital [place] [address] Micha Givens Jr., MD [facility] DR [place] [address] documented as of this encounter Visit Diagnoses Diagnosis Malignant neoplasm of prostate documented in this encounter Care Teams Assistant Field Hockey Coach Relationship Specialty Start Date End Date Bobby Headley MD [address] [place] [address] PCP - General 01/29/14 11/28/17 documented as of this encounter
--- OUTSIDE RECORDS SUMMARY | 2023-11-16 06:32 | XMS_ITS | Encounter Summary ---
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 DR H[place] [address] [place] [address] Referral ID Status Reason Start Date Expiration Date V isits Requested Visits Authorized [id number] Closed Specialty Service Requested 10/10/2022 04/12/2024 1 2 Encounter Details Date Type Department Care Team (Late st Contact Info) Description 10/12/2022 10:26 AM EDT - 10/12/2022 11:59 PM EDT Hospital Encounter [place] [address] Adrianne Ramon MD [facility] HEMATOLOGY [place] [address] Discharge Disposition: Home Social History [...] AM EDT Office Visit Hematology/Oncology at [address] [address] Adrianne Ramon MD [facility] DR HEMATOLOGY [place] [address] Yael Merlos APRN [facility] DR HEMATOLOGY [place] [address] 11/21/2023 10:00 AM EDT Infusion Hematology Oncology at [address] [address] 11/23/2023 11:00 AM EDT Office Visit [place]ematology [place] [address] Reynold Proctor MD [facility] [place] [address] 11/23/2023 1:00 PM EDT Appointment Hematology [place] [address] 11/23/2023 2:00 PM EDT Office Visit Hematology [place] [address] Micha Givens Jr., MD [facility] DR HEMATOLOG[place] [address] 11/23/2023 3:30 PM EDT Hospital [place] [address] Micha Givens Jr., MD [facility] DR HEMATOLOGY [place] [address] documented as of this encounter Procedures Procedure [...] Glucose, POC 113 65 - 199 mg/dL [facility] Comment: Supplemental ranges: <140 mg/dL before meals <180 mg/dL all other times of the day Blood 10/12/2022 11:0 0 AM EDT 10/12/2022 11:00 AM EDT Adrianne Ramon MD POINT OF CARE TE ST ORDERABLES [facility] [place] [address] documented in this encounter Visit Diagnoses Not on filedocumented in this encounter Care Teams Speech Teacher Relationship Specialty Start Date End Date Frederick Meade MD [address] [place] [address] PCP - General Family Medicine 11/29/17 documented as of this encounter
--- OUTSIDE RECORDS SUMMARY | 2023-11-16 06:32 | XMS_ITS | Encounter Summary ---
[place] [address] Care Team Providers Care Education Liaison Name Role Phone Frederick Meade MD Primary Care Provider [phone] Reason for Visit * Reason Comments Radiation Follow-up prostate cancer Encounter Details Date Type Department Care Team (Late st Contact Info) Description 08/21/2018 9:00 AM EDT Office Visit Radiation Oncology at [address] [phone] Anna Carr [address] [place] [address] Malignant neoplasm of prostate Social [...] 07/16/2018-- WBC= 6.9, RBC= 3.71, HGB=8, HCT=28.5, QBGV=911, FERRITIN= 7 (L) Date PSA Testosterone (normal [...] offered biopsy which was performed 09/01/14, demonstrating Burton 4+ 3 disease in a single core at the right apex. Forty-five percent of that core did appear to be involved. Perineural invasion was not seen. Pathology had been reviewed at [facility]. He did have a prolonged discussion [...] the prostate Field orientation: Dynamic arc VMAT Oracle Adf Developer Target Coverage (70Gy isodose line indicated): Hormone [...] Biopsy 09/01/2014 Volume in cc 15 cc Burton grade/score a+b=c 4+3=7-- intermediate risk prostate cancer [...] on file Occupational History ??? 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 Financial resource strain: [...] file Gets together: Not on file Attends mosque service: Not on file Active member of [...] or finances. He is part of a [employer] league and loves to bowl two to [...] Visit from 08/21/2018 in Radiation Oncology at [facility] Weight 94.9 kg (209 lb 4.8 [...] 07/16/2018-- WBC= 6.9, RBC= 3.71, HGB=8, HCT=28.5, USDO=085, FERRITIN= 7 (L) Date PSA Testosterone (normal [...] AM EDT Office Visit Hematology/Oncology at [address] [phone] Adrianne Ramon MD [facility] DR [place] [address] Yael Merlos, KEYSEATER OPERATOR [facility] DR HEMATOLOGY [place] [address] 11/21/2023 10:00 AM EDT Infusion Hematology Oncology at [address] [phone] 11/23/2023 11:00 AM EDT Office Visit Hematology and Oncology at [place] [phone] Reynold Proctor MD [facility] [place] [address] 11/23/2023 1:00 PM EDT Appointment Hematology and Oncology at [address] 11/23/2023 2:00 PM EDT Office Visit Hematology and Oncology at [place] [phone] Micha Givens Jr., MD [facility] DR HEMATOLOGY [place] [address] 11/23/2023 3:30 PM EDT Hospital Encounter MRI at [place] [phone] Micha Givens Jr., MD [facility] DR HEMATOLOGY [place] [address] documented as of this encounter Visit Diagnoses Diagnosis Malignant neoplasm of prostate documented in this encounter Care Teams Education Liaison Relationship Specialty Start Date End Date Frederick Meade MD [address] [place] [address] PCP - General Family Medicine 11/29/17 documented as of this encounter
--- OUTSIDE RECORDS SUMMARY | 2023-11-16 06:32 | XMS_ITS | Encounter Summary ---
[place] [address] Care Team Providers Care Grout Pump Operator Name Role Phone Frederick Meade MD Primary Care Provider [phone] Encounter Details Date Type Department Care Team (Late st Contact Info) Description 09/21/2022 Notes Only [place] [address] Karly Jacobs MD [facility] [place] [address] Social History Tobacco Use Types Packs/Day Years [...] by Transfer Center by Dr. Lucero at [facility] on 09/21/22 regarding Cheo Freire. Cheo Freire is a 72 y.o. male with PMH T2DM (diet controlled), HTN (lisinopril), prostate Ca (diagnosed 2014, no treatment), tobacco use history (quit 1984), prior chewing tobacco use history, very occasional alcohol who presented to [facility] with 1 wk throat swelling [...] Dr. Ramírez, who is apparently in [place], but suggested this may represent angioedema vs [...] for scope exam to evaluate further. Unfortunately, [facility] had no availability to transfer patient at [...] Jacobs MD, PGY3 09/21/2022 11:33 PM Pager #[phone] documented in this encounter Plan of Treatment Upcoming Encounters Date Type Department Care Team (Late st Contact Info) Description 11/21/2023 9:30 AM EDT Office Visit Hematology/Oncology at [address] [address] Adrianne Ramon MD [facility] DR [place] [address] Yael Merlos, SIGNAL TIMER [facility] [place] [address] 11/21/2023 10:00 AM EDT Infusion Hematology Oncology at [address] [address] 11/23/2023 11:00 AM EDT Office Visit Hematology [place] [address] Reynold Proctor MD [facility] [place] [address] 11/23/2023 1:00 PM EDT Appointment Hematology [place] [address] 11/23/2023 2:00 PM EDT Office Visit Hematology [place] [address] Micha Givens Jr., MD [facility] [place] [address] 11/23/2023 3:30 PM EDT Hospital [place] [address] Micha Givens Jr., MD [facility] DR [place] [address] documented as of this encounter Results * [...] have questions please contact the health career based intervention coordinator that requested your imaging first. ? Narrative 09/22/2022 3:13 PM EDT EXAMINATION: REQUEST FOR 2ND READ CT NECK CLINICAL HISTORY: Nasopharyngeal fluid collection vs infected node, retropharyngeal adenopathy, BOT fullness, RIGHT thyroid lesion; Sending Institution [facility]; Date of exam 09/21/2022; I [...] BOT fullness, RIGHT thyroid lesion; Sending Institution [facility]; Date of exam 09/21/2022; I [...] who have questions please contactthe health career based intervention coordinator that requested your imaging first. 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
--- OUTSIDE RECORDS SUMMARY | 2023-11-16 06:32 | XMS_ITS | Encounter Summary ---
[place] [address] Care Team Providers Care Manager Rail Name Role Phone Bobby Headley MD Primary Care Provider Encounter Details Date Type Department Care Team (Late st Contact Info) Description 12/31/2014 8:00 AM EST Office Visit Radiation Oncology at [address] [address] Nitin Stauffer MD [address] [place] [address] DR RADIATION ONCOLOGY [place], [place] [id number] Cancer of prostate with intermediate recurrence risk [...] Uncontrollable bleeding A Radiation Oncology doctor is visual presentation manager after our normal hours and on weekends. To call for urgent medical issues from radiation treatments that can not wait until normal business hours, please call and have the telecine operator page the Radiation Oncologist visual presentation manager. Nitin Ramirez MD documented in this encounter Progress Notes * Nitin Stauffer MD - 12/31/2014 8:07 AM EST [facility] On Treatment [...] AM EDT Office Visit Hematology/Oncology at [address] [phone] Adrianne Ramon MD [facility] DR [place] [address] Yael Merlos APRN [facility] DR [place] [address] 11/21/2023 10:00 AM EDT Infusion Hematology Oncology at [address] [address] 11/23/2023 11:00 AM EDT Office Visit Hematology [place] [address] Reynold Proctor MD [facility] [place] [address] 11/23/2023 1:00 PM EDT Appointment Hematology and Oncology at [place] [address] 11/23/2023 2:00 PM EDT Office Visit [place] [address] Micha Givens Jr., MD [facility] [place] [address] 11/23/2023 3:30 PM EDT Hospital Encounter MRI at [place] [phone] Micha Givens Jr., MD [facility] [place] [address] documented as of this encounter Visit Diagnoses Diagnosis Cancer of prostate with intermediate recurrence risk (stage T2b-c or [place] 7 or PSA 10-20) Malignant neoplasm of prostate documented in this encounter Care Teams Manager Rail Relationship Specialty Start Date End Date Bobby Headley MD [address] [place] [address] PCP - General 01/29/14 11/28/17 documented as of this encounter
--- OUTSIDE RECORDS SUMMARY | 2023-11-16 06:32 | XMS_ITS | Encounter Summary ---
[place] [address] Care Team Providers Care Mixed Livestock Farm Worker Name Role Phone Frederick Meade MD Primary Care Provider [phone] Encounter Details Date Type Department Care Team (Late st Contact Info) Description 03/17/2019 10:00 AM EST Office Visit Radiation Oncology at [address] [address] Nitin Stauffer MD [address] [place] [address] DR RADIATION ONCOLOGY [place], [place] [phone] Malignant neoplasm of prostate Social History Tobacco [...] 03/17/19 Nitin Stauffer MD, MS Radiation Oncology [facility] [phone] (paging electric accounting machine operator) Pager #[phone] Patient ID: Cheo Freire is a 64 [...] totally confined to bed or chair IMPRESSION/PLAN parts counterman effects from radiotherapy: Biochemically and clinically DAVE. No significant senior care adverse effects from RT/ADT. Followup: Given [...] minute visit was spent with the patient [id number] reviewing his interval medical history and answering questions related to his prostate cancer. documented in this encounter Plan of Treatment Upcoming Encounters Date Type Department Care Team (Late st Contact Info) Description 11/21/2023 9:30 AM EDT Office Visit Hematology/Oncology at [address] [address] Adrianne Ramon MD [facility] [place] [address] Yael Merlos APRN [facility] [place] [address] 11/21/2023 10:00 AM EDT Infusion Hematology Oncology at [address] [phone] 11/23/2023 11:00 AM EDT Office Visit Hematology and Oncology at [place] [phone] Reynold Proctor MD [facility] [place] [address] 11/23/2023 1:00 PM EDT Appointment Hematology and Oncology at [place] [phone] 11/23/2023 2:00 PM EDT Office Visit Hematology and Oncology at [place] [phone] Micha Givens Jr., MD [facility] [place] [address] 11/23/2023 3:30 PM EDT Hospital Encounter MRI at [place] [phone] Micha Givens Jr., MD [facility] [place] [address] documented as of this encounter Visit Diagnoses Diagnosis Malignant neoplasm of prostate documented in this encounter Care Teams Mixed Livestock Farm Worker Relationship Specialty Start Date End Date Frederick Meade MD [address] [place] [address] PCP - General Family Medicine 11/29/17 documented as of this encounter
--- OUTSIDE RECORDS SUMMARY | 2023-11-16 06:33 | XMS_ITS | Encounter Summary ---
Author Organization [facility] [address] Care Team Providers Care Vacuum Furnace Operator Name Role Phone Bobby Headley MD Primary Care Provider [phone] Encounter Details Date Type Department Care Team (Late Contact Info) Description 12/30/2013 Orders [place] [address] Micha Nunez MD [facility] [place] [address] Social History Tobacco Use Types Packs/Day Years [...] AM EDT Office Visit Hematology/Oncology at [address] [address] Adrianne Ramon MD [facility] DR [place] [address] Yael Merlos APRN [facility] DR [place] [address] 11/21/2023 10:00 AM EDT Infusion Hematology Oncology at [address] [address] 11/23/2023 11:00 AM EDT Office Visit Hematology and Oncology at [place] [phone] Reynold Proctor MD [facility] [place] [address] 11/23/2023 1:00 PM EDT Appointment Hematology [place] [address] 11/23/2023 2:00 PM EDT Office Visit Hematology and Oncology at [place] [phone] Micha Givens Jr., MD [facility] DR [place] [address] 11/23/2023 3:30 PM EDT Hospital [place] [address] Micha Givens Jr., MD [facility] DR [place] [address] documented as of this encounter Procedures Procedure [...] filedocumented in this encounter Care Teams Vacuum Furnace Operator Relationship Specialty Start Date End Date Bobby Headley MD [address] [place] [address] PCP - General 01/29/14 11/28/17 documented as of this encounter
--- OUTSIDE RECORDS SUMMARY | 2023-11-16 06:33 | XMS_ITS | Encounter Summary ---
[place] [address] Care Team Providers Care Early Childhood Teacher Assistant Name Role Phone Bobby Headley MD Primary Care Provider [phone] Encounter Details Date Type Department Care Team (Latest Contact Info) Description 10/19/2014 9:57 AM EDT - 10/19/2014 11:59 PM EDT Hospital [place] [phone] Nitin Stauffer MD [address] [place] [address] DR RADIATION ONCOLOGY [place], [place] [phone] Cancer of prostate with intermediate recurrence risk (stage T2b-c or [place] 7 or PSA 10-20) Discharge Disposition: Home [...] AM EDT Office Visit Hematology/Oncology at [address] [address] Adrianne Ramon MD [facility] [place] [address] Yael Merlos APRN [facility] [place] [address] 11/21/2023 10:00 AM EDT Infusion Hematology Oncology at [address] [address] 11/23/2023 11:00 AM EDT Office Visit Hematology [place] [phone] Reynold Proctor MD [facility] [place] [address] 11/23/2023 1:00 PM EDT Appointment Hematology [place] [phone] 11/23/2023 2:00 PM EDT Office Visit Hematology [place] [phone] Micha Givens Jr., MD [facility] [place] [address] 11/23/2023 3:30 PM EDT Hospital [place] [phone] Micha Givens Jr., MD [facility] [place] [address] documented as of this encounter Procedures Procedure Name Priority Date/Time Associated Diagnosis Comments MRI PELVIS SOFT TISSUE (GI MANAGER BUSINESS PROCESS) WWO CONTRAST Routine 10/19/2014 11:54 AM EDT [...] 2. Staging. ??Date of sextant biopsy: 09/24/2014 [place] score: 4+3 TECHNIQUE: Multiparametric MRI of the [...] reviewed by the attending Nitin Stauffer MD [facility] MRI ORDERABLES documented in this encounter Visit [...] mLs documented in this encounter Care Teams Early Childhood Teacher Assistant Relationship Specialty Start Date End Date Bobby Headley MD [address] [place] [address] PCP - General 01/29/14 11/28/17 documented as of this encounter
--- OUTSIDE RECORDS SUMMARY | 2023-11-16 06:33 | XMS_ITS | Encounter Summary ---
[place] [address] Care Team Providers Care Retail Service Representative Name Role Phone Bobby Headley MD Primary Care Provider [phone] Encounter Details Date Type Department Care Team (Late Contact Info) Description 09/30/2014 Orders Only Radiation Oncology at [address] [address] Nitin Stauffer MD [address] [place] [address] DR RADIATION ONCOLOGY [place], [place] [phone] Social History Tobacco Use Types Packs/Day Years [...] AM EDT Office Visit Hematology/Oncology at [address] [phone] Adrianne Ramon MD [facility] HEMATOLOGY [place] [address] Yael Merlos, PLASTIC EXTRUDING MACHINE OPERATOR [facility] HEMATOLOGY [place] [address] 11/21/2023 10:00 AM EDT Infusion Hematology Oncology at [address] [address] 11/23/2023 11:00 AM EDT Office Visit Hematology and Oncology at [place] [phone] Reynold rPoctor MD [facility] [place] [address] 11/23/2023 1:00 PM EDT Appointment Hematology and Oncology at [address] 11/23/2023 2:00 PM EDT Office Visit Hematology and Oncology at [place] [phone] Micha Givens Jr., MD [facility] DR [place] [address] 11/23/2023 3:30 PM EDT Hospital [place] [address] Micha Givens Jr., MD [facility] DR [place] [address] documented as of this encounter Visit Diagnoses Not on filedocumented in this encounter Care Teams Retail Service Representative Relationship Specialty Start Date End Date Bobby Headley MD [address] [place] [address] PCP - General 01/29/14 11/28/17 documented as of this encounter
--- OUTSIDE RECORDS SUMMARY | 2023-11-16 06:33 | XMS_ITS | Encounter Summary ---
[place] [address] Care Team Providers Care Circulation Librarian Name Role Phone Bobby Headley MD Primary Care Provider [phone] Encounter Details Date Type Department Care Team (Late st Contact Info) Description 11/26/2014 9:00 AM EDT Office Visit Radiation Oncology at [address] [phone] Nitin Stauffer MD [address] [place] [address] DR RADIATION ONCOLOGY [place], [place] [phone] Cancer of prostate with intermediate recurrence risk [...] Uncontrollable bleeding A Radiation Oncology doctor is inventory control clerk after our normal hours and on weekends. To call for urgent medical issues from radiation treatments that can not wait until normal business hours, please call and have the embossing press operator apprentice page the Radiation Oncologist inventory control clerk. Nitin Ramirez MD documented in this encounter Progress Notes * Nitin Stauffer MD - 11/26/2014 11:16 AM EDT [facility] On Treatment Visit Patient ID: Cheo [...] AM EDT Office Visit Hematology/Oncology at [address] [phone] Adrianne Ramon MD [facility] DR [place]EMATOLOGY [place] [address] Yael Merlos APRN [facility] DR [place]EM[place]OLOGY [place] [address] 11/21/2023 10:00 AM EDT Infusion Hematology Oncology at [address] [address] 11/23/2023 11:00 AM EDT Office Visit [place] [address] Reynold Proctor MD [facility] [place] [address] 11/23/2023 1:00 PM EDT Appointment Hematology [place] [address] 11/23/2023 2:00 PM EDT Office Visit Hematology and Oncology at [place] [phone] Micha Givens Jr., MD [facility] [place] [address] 11/23/2023 3:30 PM EDT Hospital Encounter MRI at [place] [phone] Micha Givens Jr., MD [facility] [place] [address] documented as of this encounter Visit Diagnoses Diagnosis Cancer of prostate with intermediate recurrence risk (stage T2b-c or [place] 7 or PSA 10-20) Malignant neoplasm of prostate documented in this encounter Care Teams Circulation Librarian Relationship Specialty Start Date End Date Bobby Headley MD [address] [place] [address] PCP - General 01/29/14 11/28/17 documented as of this encounter
--- OUTSIDE RECORDS SUMMARY | 2023-11-16 06:33 | XMS_ITS | Encounter Summary ---
Author Organization [facility] [place] [address] Care Team Providers Care Screen Cleaner Name Role Phone Bobby Headley MD Primary Care Provider [phone] Encounter Details Date Type Department Care Team ([facility] Contact Info) Description 03/04/2014 4:07 PM EST - 03/04/2014 11:59 PM EST Hospital En[place] [address] Testis mass Social History Tobacco Use Types [...] AM EDT Office Visit Hematology/Oncology at [address] [phone] Adrianne Ramon MD [facility] DR [place] [address] Yael Merlos, WILDLIFE PHOTOGRAPHER [facility] [place] [address] 11/21/2023 10:00 AM EDT Infusion Hematology Oncology at [address] [address] 11/23/2023 11:00 AM EDT Office Visit Hematology [place] [phone] Reynold Proctor MD [facility] [place] [address] 11/23/2023 1:00 PM EDT Appointment Hematology [place] [address] 11/23/2023 2:00 PM EDT Office Visit Hematology [place] [address] Landry Givens Jr., MD [facility] DR [place] [address] 11/23/2023 3:30 PM EDT Hospital [place] [address] Landry Givens Jr., MD [facility] [place] [address] documented as of this encounter Procedures Procedure Name Priority Date/Time Associated Diagnosis Comments US SCROTUM Routine 03/04/2014 4:46 PM EST Testis mass documented in this encounter Results * US scrotum (03/04/2014 4:46 PM EST) Anatomical Region Laterality Modality Pelvis Ultrasound 03/04/2014 4:46 PM EST Narrative 03/04/2014 5:00 PM EST Scrotal ?(Signed Final 03/04/2014 05:00 ? pm) Patient Info ID #: ? [id number] ?: ??[birth year] (63 yrs) Name: ? CHEO MORFIN ? Visit Date: 03/04/2014 04:39 pm Performed By Performed By: ?Hannah Wahl RDMS Attending: ? Alexandre OCASIO, Jaime Dumas Referred By: ? LANDRY NUNEZ MD Service(s) Provided ??[facility] - Ultrasound Scrotum and Contents with ?[id number], [id number] ??Vascular - [id number], [id number] Indications ??Evaluate Right testicle hx of testis [...] 03/04/2014 05:00 pm) Patient Info ID #: [id number] : [birth year] (63 yrs) Name: CHEO MORFIN Visit Date: 03/04/2014 04:39 pm Performed By Performed By: Hannah Wahl RDMS Attending: Jaime Schroeder MD Referred By: LANDRY NUNEZ MD Service(s) Provided [facility] - Ultrasound Scrotum and Contents with [id number], [id number] Vascular - [id number], [id number] Indications Evaluate Right testicle hx of testis [...] organs documented in this encounter Care Teams Screen Cleaner Relationship Specialty Start Date End Date Bobby Headley MD [address] [place] [address] PCP - General 01/29/14 11/28/17 documented as of this encounter
--- OUTSIDE RECORDS SUMMARY | 2023-11-16 06:33 | XMS_ITS | Encounter Summary ---
[place] [address] Care Team Providers Care Printed Circuit Boards Laminator Name Role Phone Bobby Headley MD Primary Care Provider Encounter Details Date Type Department Care Team (Late st Contact Info) Description 12/10/2014 11:45 AM EDT Office Visit Radiation Oncology at [address] [phone] Nitin Stauffer MD [address] [place] [address] DR RADIATION ONCOLOGY [place], [place] [phone] Cancer of prostate with intermediate recurrence risk [...] Uncontrollable bleeding A Radiation Oncology doctor is applications architect after our normal hours and on weekends. To call for urgent medical issues from radiation treatments that can not wait until normal business hours, please call and have the gear cutting machine operator page the Radiation Oncologist applications architect. Nitin Ramirez MD documented in this encounter Progress Notes * Nitin Stauffer MD - 12/10/2014 11:08 AM EDT [facility] On Treatment Visit Patient ID: [...] AM EDT Office Visit Hematology/Oncology at [address] [phone] Adrianne Ramon MD [facility] HEMATOLOGY [place] [address] Yael Merlos, KARLA [facility] HEMATOLOGY [place] [address] 11/21/2023 10:00 AM EDT Infusion Hematology Oncology at [address] [phone] 11/23/2023 11:00 AM EDT Office Visit Hematology [place] [address] Reynold Proctor MD [facility] [place] [address] 11/23/2023 1:00 PM EDT Appointment Hematology [place] [address] 11/23/2023 2:00 PM EDT Office Visit Hematology [place] [phone] Micha Givens Jr., MD [facility] DR HEMATOLOGY [place] [address] 11/23/2023 3:30 PM EDT Hospital [place] [phone] Micha Givens Jr., MD [facility] DR HEMATOLOGY [place] [address] documented as of this encounter Visit Diagnoses Diagnosis Cancer of prostate with intermediate recurrence risk (stage T2b-c or [place] 7 or PSA 10-20) Malignant neoplasm of prostate documented in this encounter Care Teams Printed Circuit Boards Laminator Relationship Specialty Start Date End Date Bobby Headley MD [address] [place] [address] PCP - General 01/29/14 11/28/17 documented as of this encounter
--- OUTSIDE RECORDS SUMMARY | 2023-11-16 06:33 | XMS_ITS | Encounter Summary ---
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 The patient has been for 24 years [...] notable for a small left testicle ~ [id number]. There is a tiny firm area palpable [...] AM EDT Office Visit Hematology/Oncology at [address] [phone] Adrianne Ramon MD [facility] DR HEMATOLOGY AND [place] [address] Yael Merlos APRN [facility] DR HEMATOLOGY [place] [address] 11/21/2023 10:00 AM EDT Infusion Hematology Oncology at [address] [phone] 11/23/2023 11:00 AM EDT Office Visit Hemat[place] [address] Reynold Proctor MD [facility] [place] [address] 11/23/2023 1:00 PM EDT Appointment Hematology [place] [address] 11/23/2023 2:00 PM EDT Office Visit Hematology and Oncology at [place] [phone] Landry Givens Jr., MD [facility] DR HEMATOLOGY [place] [address] 11/23/2023 3:30 PM EDT Hospital Encounter MRI at [place] [phone] Landry Givens Jr., MD [facility] DR HEMATOLOGY [place] [address] documented as of this encounter Procedures Procedure [...] ? pm) Patient Info ID #: ? [id number] ?: ??[birth year] (63 yrs) Name: ? CHEO MOFRIN ? Visit Date: 03/04/2014 04:39 pm Performed By Performed By: ?Hannah Wahl RDMS Attending: ? Alexandre OCASIO, Jaime Dumas Referred By: ? LANDRY NUNEZ MD Service(s) Provided ??[facility] - Ultrasound Scrotum and Contents with ?[id number], [id number] ??Vascular - [id number], [id number] Indications ??Evaluate Right testicle hx of testis [...] 03/04/2014 05:00 pm) Patient Info ID #: [id number] : [birth year] (63 yrs) Name: CHEO MORFIN Visit Date: 03/04/2014 04:39 pm Performed By Performed By: Hannah Wahl RDMS Attending: Jaime Schroeder MD Referred By: LANDRY NUNEZ MD Service(s) Provided [facility] - Ultrasound Scrotum and Contents with [id number], [address]453 Vascular - [id number], [id number] Indications Evaluate Right testicle hx of testis [...] MD HEMATOLOGY ORDERABLE S Performing Organization Address [facility] Co de Phone Number [facility] * AFP tumor marker (03/04/2014 4:03 PM EST) Alpha Fetoprotein 2.3 <=8.3 ng/mL [facility] Blood specimen (specimen) 03/04/2014 4:03 PM EST 03/04/2014 4:07 PM EST Narrative Resulting Agency Comment Spec In Lab Landry Nunez MD CHEMISTRY ORDERABLES Performing Organization Address [facility] Co de Phone Number [facility] * Beta HCG, quantitative (03/04/2014 4:03 PM EST) Beta Human Chorionic Gonadotropin, Quantitative <1 0 - 2 mlU/ML [facility] Comment: REFERENCE RANGES NON- FEMALE: [...] - 56,451 ?17 weeks ? 8,175 - 04,868 ?18 weeks ? 8,099 - 17,176 Blood specimen (specimen) 03/04/2014 4:03 PM EST 03/04/2014 4:07 PM EST Narrative Resulting Agency Comment Spec In Lab Landry Nunez MD CHEMISTRY ORDERABLES [facility] documented in this encounter Visit Diagnoses Diagnosis Testis mass Other specified disorder of male genital organs Testis cancer, right Testis mass Other specified disorder of male genital organs documented in this encounter Care Teams Bench Worker Apprentice Relationship Specialty Start Date End Date Bobby Headley MD [address] [place] [address] PCP - General 01/29/14 11/28/17 documented as of this encounter
--- OUTSIDE RECORDS SUMMARY | 2023-11-16 06:33 | XMS_ITS | Encounter Summary ---
[place] [address] Care Team Providers Care Medical Insurance Collector Name Role Phone Bobby Headley MD Primary Care Provider [phone] Encounter Details Date Type Department Care Team (Late st Contact Info) Description 09/25/2014 External [place] [address] Provider, Scanning Social History Tobacco [...] AM EDT Office Visit Hematology/Oncology at [address] [phone] Adrianne Ramon MD [facility] [address] [place] [address] Yael Merlos APRN [facility] [place] [address] 11/21/2023 10:00 AM EDT Infusion Hematology Oncology at [address] [phone] 11/23/2023 11:00 AM EDT Office Visit Hematology [place] [address] Reynold Proctor MD [facility] [place] [place] [address] 11/23/2023 1:00 PM EDT Appointment Hematology and Oncology at [place] [phone] 11/23/2023 2:00 PM EDT Office Visit Hematology and Oncology at [place] [phone] Micha Givens Jr., MD [facility] HEMATOLOGY [place] [address] 11/23/2023 3:30 PM EDT Hospital Encounter MRI at [place] [phone] Micha Givens Jr., MD [facility] DR HEMATOLOGY [place] [address] documented as of this encounter Procedures Procedure Name Priority Date/Time Associated Diagnosis Comments SURGICAL PATHOLOGY SCAN Routine 09/25/2014 documented in this encounter Results * Scan Doc: Surgical Pathology (09/25/2014) John Vergara MD MEDIA MGR SCAN EXT O RDR/RSLT documented in this encounter Visit Diagnoses Not on filedocumented in this encounter Care Teams Medical Insurance Collector Relationship Specialty Start Date End Date Bobby Headley MD [address] [place] [address] PCP - General 01/29/14 11/28/17 documented as of this encounter
--- OUTSIDE RECORDS SUMMARY | 2023-11-16 06:33 | XMS_ITS | Encounter Summary ---
[place] [address] Care Team Providers Care Supervisor [employer] Name Role Phone Bobby Headley MD Primary Care Provider [phone] Encounter Details Date Type Department Care Team (Late Contact Info) Description 10/21/2014 Telephone Radiation Oncology at [address] [phone] Nitin Stauffer MD [address] [place] [address] RADIATION ONCOLOGY [place], [place] [phone] Social History Tobacco Use Types Packs/Day Years [...] AM EDT Office Visit Hematology/Oncology at [address] [phone] Adrianne Ramon MD [facility] [place] [address] aYel Merlos, KARLA [facility] HEMATOLOGY [place] [address] 11/21/2023 10:00 AM EDT Infusion Hematology Oncology at [address] [phone] 11/23/2023 11:00 AM EDT Office Visit Hematology and Oncology at [place] [phone] Reynold Proctor MD [facility] [place] [address] 11/23/2023 1:00 PM EDT Appointment Hematology and Oncology at [address] 11/23/2023 2:00 PM EDT Office Visit Hematology and Oncology at [place] [phone] Micha Givens Jr., MD [facility] [place] [address] 11/23/2023 3:30 PM EDT Hospital [place] [address] Micha Givens Jr., MD [facility] HEMATOLOGY [place] [address] documented as of this encounter Visit Diagnoses Not on filedocumented in this encounter Care Teams Supervisor [employer] Relationship Specialty Start Date End Date Bobby Headley MD [address] [place] [address] PCP - General 01/29/14 11/28/17 documented as of this encounter
--- OUTSIDE RECORDS SUMMARY | 2023-11-16 06:33 | XMS_ITS | Encounter Summary ---
[place] [address] Care Team Providers Care Mushroom Packer Name Role Phone Bobby Headley MD Primary Care Provider [phone] Reason for Visit * Reason Comments Prostate Cancer Lupron injection Encounter Details Date Type Department Care Team (Late st Contact Info) Description 12/22/2014 8:30 AM EST Infusion Hematology Oncology at [address] [phone] Malignant neoplasm of prostate Social [...] AM EDT Office Visit Hematology/Oncology at [address] [phone] Adrianne Ramon MD [facility] HEMATOLOGY [place] [address] Yael Merlos APRN [facility] HEMATOLOGY [place] [address] 11/21/2023 10:00 AM EDT Infusion Hematology Oncology at [address] [phone] 11/23/2023 11:00 AM EDT Office Visit Hematology and Oncology at [place] [phone] Reynold Proctor MD [facility] [place] [address] 11/23/2023 1:00 PM EDT Appointment Hematology [place] [address] 11/23/2023 2:00 PM EDT Office Visit Hematology and Oncology at [place] [phone] Micha Givens Jr., MD [facility] HEMATOLOGY [place] [address] 11/23/2023 3:30 PM EDT Hospital Encounter MRI at [place] [phone] Micha Givens Jr., MD [facility] HEMATOLOGY [place] [address] documented as of this encounter Visit Diagnoses [...] Gluteal documented in this encounter Care Teams Mushroom Packer Relationship Specialty Start Date End Date Bobby Headley MD [address] [place] [address] PCP - General 01/29/14 11/28/17 documented as of this encounter
--- OUTSIDE RECORDS SUMMARY | 2023-11-16 06:33 | XMS_ITS | Encounter Summary ---
Author Organization [facility] [place] [address] Care Team Providers Care Brine Purifier Name Role Phone Bobby Headley MD Primary Care Provider Encounter Details Date Type Department Care Team (Late Contact Info) Description 09/01/2014 Orders [place] [address] Micha Nunez MD [facility] [place] [address] Social History Tobacco Use Types Packs/Day Years [...] AM EDT Office Visit Hematology/Oncology at [address] [phone] Adrianne Ramon MD [facility] DR [place] [address] Yael Merlos APRN [facility] DR [place] [address] 11/21/2023 10:00 AM EDT Infusion Hematology Oncology at [address] [phone] 11/23/2023 11:00 AM EDT Office Visit Hematology and Oncology at [place] [phone] Reynold Proctor MD [facility] [place] [address] 11/23/2023 1:00 PM EDT Appointment Hematology [place] [address] 11/23/2023 2:00 PM EDT Office Visit Hematology and Oncology at [place] [phone] Micha Givens Jr., MD [facility] DR [place]EMAT[place] [address] 11/23/2023 3:30 PM EDT Hospital [place] [address] Micha Givens Jr., MD [facility] DR [place] [address] documented as of this encounter Procedures Procedure [...] is a Non-reportable exam Micha Nunez MD [facility] FILM LIBRARY ORD ERABLES documented in this encounter Visit Diagnoses Not on filedocumented in this encounter Care Teams Brine Purifier Relationship Specialty Start Date End Date Bobby Headley MD [address] [place] [address] PCP - General 01/29/14 11/28/17 documented as of this encounter
--- OUTSIDE RECORDS SUMMARY | 2023-11-16 06:33 | XMS_ITS | Encounter Summary ---
Author Organization [facility] Address [facility] [place] [address] Care Team Providers Care Fiber Heel Piece Shaper Name Role Phone Bobby Headley MD Primary Care Provider [phone] Reason for Visit * Reason Comments Prostate Cancer Lupron 22.5 mg into left buttocks Encounter Details Date Type Department Care Team (Late st Contact Info) Description 09/29/2014 1:00 PM EDT Infusion Hematology Oncology at [address] [phone] CL[address], [facility] HEM/ONC William German MD [facility] DR [place] [address] Malignant neoplasm of prostate Discharge Disposition: Home [...] AM EDT Office Visit Hematology/Oncology at [address] [phone] Adrianne Ramon MD [facility] [place] [address] Yael Merlos APRN [facility] [place] [address] 11/21/2023 10:00 AM EDT Infusion Hematology Oncology at [address] [phone] 11/23/2023 11:00 AM EDT Office Visit Hematology and Oncology at [place] [phone] Reynold Proctor MD [facility] [place] [address] 11/23/2023 1:00 PM EDT Appointment Hematology [place] [address] 11/23/2023 2:00 PM EDT Office Visit Hematology and Oncology at [place] [phone] Micha Givens Jr., MD [facility] [place] [address] 11/23/2023 3:30 PM EDT Hospital [place] [phone] Micha Givens Jr., MD [facility] [place] [address] documented as of this encounter Visit Diagnoses [...] Gluteal documented in this encounter Care Teams Fiber Heel Piece Shaper Relationship Specialty Start Date End Date Bobby Headley MD [address] [place] [address] PCP - General 01/29/14 11/28/17 documented as of this encounter
--- OUTSIDE RECORDS SUMMARY | 2023-11-16 06:33 | XMS_ITS | Encounter Summary ---
[place] [address] Care Team Providers Care Tight Rope Walker Name Role Phone Bobby Headley MD Primary Care Provider [phone] Encounter Details Date Type Department Care Team (Late st Contact Info) Description 09/29/2014 12:00 PM EDT Office Visit Radiation Oncology at [address] [phone] Nitin Stauffer MD [address] [place] [address] DR RADIATION ONCOLOGY [place], [place] [phone] Cancer of prostate with intermediate recurrence risk [...] by medications such as Viagra. Another intermediate but potentially serious side effect is the [...] a prostate MRI which we do at [facility], that allows us to better see [...] [facility] here [...] do not hesitate to call me at [phone] with any other questions or concerns you have. Although our normal business hours are M-F 8AM-5PM, I am on- site here in [facility] Wednesdays through Fridays. On Mondays and Tuesdays, your nurse Christine Fernando will be here and can answer any questionsyou might have, or help you get in touch with me. A Radiation Oncology doctor is also dental receptionist after our normal hours and on weekends for urgent questions or concerns related to radiation treatments that can not wait until normal business hours. To reach the on-call doctor after-hours, just call and have the blanking machine operator page the Radiation Oncologist dental receptionist. And, as always, if you experience [...] injury 7. Uncontrollable bleeding Nitin Ramirez MD Interior Assemblies Installersieve maker Radiation Oncology [facility] documented in this encounter Progress Notes * Nitin Stauffer MD - 09/29/2014 12:00 PM EDT Radiation Oncology New Patient Consultation [facility] Reason for Consultation: intermediate risk prostate [...] seen. Pathology had been reviewed here at [facility]. 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 Estimated travel time by the patient to [facility] is 10 minutes, one-way. KPS: 100 [...] 64-year-old man with intermediate risk prostate cancer ([place] 4 +3, PSA 5.4, clinical T1c). Plan: [...] with either Dr. Nunezor Dr. Stubbs at [facility]. However, he was quite clear that the potential side effects of urinary incontinence or erectile dysfunction are completely unacceptable to him. Given the primary [place] 4 disease, I discussed the utility of [...] yes ADVANCED DIRECTIVE: yes, on file at [facility] ([facility]) PAIN ASSESSMENT: [0] out of 10 [...] AM EDT Office Visit Hematology/Oncology at [address] [phone] Adrianne Ramon MD [facility] DR [place] [address] Yael Merlos APRN [facility] DR [place] [address] 11/21/2023 10:00 AM EDT Infusion Hematology Oncology at [address] [phone] 11/23/2023 11:00 AM EDT Office Visit [place]ematology [place] [phone] Reynold Proctor MD [facility] [place] [address] 11/23/2023 1:00 PM EDT Appointment Hematology [place] [phone] 11/23/2023 2:00 PM EDT Office Visit [place]ematology [place] [address] Micha Givens Jr., MD [facility] DR [place] [address] 11/23/2023 3:30 PM EDT [place] [address] Micha Givens Jr., MD [facility] DR [place] [address] documented as of this encounter Procedures Procedure Name Priority Date/Time Associated Diagnosis Comments CHEMOTHERAPY SCAN 09/29/2014 12:00 AM EDT documented in this encounter Results * SCAN DOC: CHEMOTHERAPY (09/29/2014 12:00 AM EDT) Scanning Provider MEDIA MGR SCAN EXT O RDR/RSLT documented in this encounter Visit Diagnoses Diagnosis Cancer of prostate with intermediate recurrence risk (stage T2b-c or [place] 7 or PSA 10-20) Malignant neoplasm of prostate documented in this encounter Care Teams Tight Rope Walker Relationship Specialty Start Date End Date Bobby Headley MD [address] [place] [address] PCP - General 01/29/14 11/28/17 documented as of this encounter
--- OUTSIDE RECORDS SUMMARY | 2023-11-16 06:33 | XMS_ITS | Encounter Summary ---
Author [place] [address] Care Team Providers Care Oiler And Greaser Name Role Phone Bobby Headley MD Primary Care Provider [phone] Encounter Details Date Type Department Care Team (Late Contact Info) Description 09/28/2014 Abstract Radiation Oncology at [address] [phone] Christine Garcia, RN Social History Tobacco Use [...] AM EDT Office Visit Hematology/Oncology at [address] [phone] Adrianne Ramon MD [facility] HEMATOLOGY [place] [address] Yael Merlos APRN [facility] HEMATOLOGY [place] [address] 11/21/2023 10:00 AM EDT Infusion Hematology Oncology at [address] [phone] 11/23/2023 11:00 AM EDT Office Visit Hematology and Oncology at [place] [phone] Reynold Proctor MD [facility] [place] [address] 11/23/2023 1:00 PM EDT Appointment Hematology and Oncology at [place] [address] 11/23/2023 2:00 PM EDT Office Visit Hematology and Oncology at [place] [address] Micha Givens Jr., MD [facility] DR [place] [address] 11/23/2023 3:30 PM EDT [place] [address] Micha Givens Jr., MD [facility] DR [place] [address] documented as of this encounter Visit Diagnoses Not on filedocumented in this encounter Care Teams Oiler And Greaser Relationship Specialty Start Date End Date Bobby Headley MD [address] [place] [address] PCP - General 01/29/14 11/28/17 documented as of this encounter
--- OUTSIDE RECORDS SUMMARY | 2023-11-16 06:33 | XMS_ITS | Encounter Summary ---
[place] [address] Care Team Providers Care Spice Cleaner Name Role Phone Bobby Headley MD Primary Care Provider Reason for Visit * Reason Comments On Treatment Visit Encounter Details Date Type Department Care Team (Late st Contact Info) Description 12/03/2014 1:15 PM EDT Office Visit Radiation Oncology at [address] [phone] Nitin Stauffer MD [address] [place] [address] [place] [address] Cancer of prostate with intermediate [...] Uncontrollable bleeding A Radiation Oncology doctor is physician neonatology after our normal hours and on weekends. To call for urgent medical issues from radiation treatments that can not wait until normal business hours, please call and have the turbogenerator operator page the Radiation Oncologist physician neonatology. Nitin Ramirez MD documented in this encounter Progress Notes * Nitin Stauffer MD - 12/03/2014 1:14 PM EDT [facility] On Treatment Visit Patient ID: [...] AM EDT Office Visit Hematology/Oncology at [address] [phone] Adrianne Ramon MD [facility] DR HEMATOLOGY [place] [address] Yael Merlos APRN [facility] HEMATOLOGY [place] [address] 11/21/2023 10:00 AM EDT Infusion Hematology Oncology at [address] [phone] 11/23/2023 11:00 AM EDT Office Visit Hematology [place] [address] Reynold Proctor MD [facility] [place] [address] 11/23/2023 1:00 PM EDT Appointment Hematology and Oncology at [place] [phone] 11/23/2023 2:00 PM EDT Office Visit Hematology and Oncology at [place] [phone] Micha Givens Jr., MD [facility] DR [place] [address] 11/23/2023 3:30 PM EDT Hospital Encounter MRI at [place] [phone] Micha Givens Jr., MD [facility] DR [place] [address] documented as of this encounter Visit Diagnoses Diagnosis Cancer of prostate with intermediate recurrence risk (stage T2b-c or [place] 7 or PSA 10-20) Malignant neoplasm of prostate documented in this encounter Care Teams Spice Cleaner Relationship Specialty Start Date End Date Bobby Headley MD [address] [place] [address] PCP - General 01/29/14 11/28/17 documented as of this encounter
--- OUTSIDE RECORDS SUMMARY | 2023-11-16 06:33 | XMS_ITS | Encounter Summary ---
[place] [address] Care Team Providers Care Video Tape Editor Name Role Phone Bobby Headley MD Primary Care Provider [phone] Encounter Details Date Type Department Care Team (Late st Contact Info) Description 12/02/2014 Notes Only Radiation Oncology at [address] [phone] Shelley Cason MSW OFFICE OF CARE MANAGEMENT [...] Resources: Pt agreeable to participate in the [place] [facility]. Provided him with a brochure and will make outreach to Arlyn Gong RN, Chronic Repair Welder, [facility]. Adjustment to Illness/Mental Health Issues: [...] AM EDT Office Visit Hematology/Oncology at [address] [phone] Adrianne Ramon MD [facility] [place] [address] Yael Merlos APRN [facility] [place] [address] 11/21/2023 10:00 AM EDT Infusion Hematology Oncology at [address] [phone] 11/23/2023 11:00 AM EDT Office Visit Hematology [place] [address] Reynold Proctor MD [facility] [address] 11/23/2023 1:00 PM EDT Appointment Hematology [place] [address] 11/23/2023 2:00 PM EDT Office Visit Hematology [place] [address] Micha Givens Jr., MD [facility] [place] [address] 11/23/2023 3:30 PM EDT Hospital [place] [address] Micha Givens Jr., MD [facility] [place] [address] documented as of this encounter Visit Diagnoses Not on filedocumented in this encounter Care Teams Video Tape Editor Relationship Specialty Start Date End Date Bobby Headley MD [address] [place] [address] PCP - General 01/29/14 11/28/17 documented as of this encounter
--- OUTSIDE RECORDS SUMMARY | 2023-11-16 06:33 | XMS_ITS | Encounter Summary ---
[place] [address] Care Team Providers Care Automation And Control Engineer Name Role Phone Bobby Headley MD Primary Care Provider [phone] Encounter Details Date Type Department Care Team (Late Contact Info) Description 09/24/2014 4:13 PM EDT - 09/24/2014 11:59 PM EDT Hospital [place] [phone] Tk Vergara MD [address] [place] [address] Discharge Disposition: Home Social History Tobacco Use [...] AM EDT Office Visit Hematology/Oncology at [address] [phone] Adrianne Ramon MD [facility] HEMATOLOGY [place] [address] Yael Merlos APRN [facility] DR HEMATOLOGY [place] [address] 11/21/2023 10:00 AM EDT Infusion Hematology Oncology at [address] [address] 11/23/2023 11:00 AM EDT Office Visit Hematology and Oncology at [place] [phone] Reynold Proctor MD [facility] [place] [address] 11/23/2023 1:00 PM EDT Appointment Hematology and Oncology at [place] [phone] 11/23/2023 2:00 PM EDT Office Visit Hematology and Oncology at [place] [phone] Micha Givens Jr., MD [facility] DR [place] [address] 11/23/2023 3:30 PM EDT Hospital Encounter MRI at [place] [phone] Micha Givens Jr., MD [facility] DR [place] [address] documented as of this encounter Procedures Procedure Name Priority Date/Time Associated Diagnosis Comments SURGICAL PATHOLOGY REPORT Routine 09/24/2014 10:06 AM EDT documented in this encounter Results * Surgical Pathology Report (09/24/2014 10:06 AM EDT) Final Diagnosis ? [facility] ? Provider: ?? TK VERGARA ?? Pt. Name: ?? CHEO MORFIN ? Acc #: ?[id number] ?Pt. ? Col Date: ?? 09/24/2014 ?/Sex: ?1950,(64 years),Male ? Rec Date: ?? 09/25/2014 ?LOC: ?OPW ? SURGICAL PATHOLOGY ? DIAGNOSIS ? CONSULTATION CASE ? Outside slides labeled [id number], collection date 09/01/2014 ? A - Prostatic [...] needle biopsy, right mid apex: ? 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 approximately 45% [...] mid apex: ? Benign prostatic tissue. ? [facility] ? Provider: ?? TK VERGARA ?? Pt. Name: ?? CHEO MORFIN ? Acc #: ?[id number] ?Pt. ? Col Date: ?? 09/24/2014 ?/Sex: [...] description not recorded. ? Whole slide scan: ?[id number] ? GROSS DESCRIPTION ? [facility] ([facility]) pathology slide(s) are ? reviewed. ??Refer to Diagnosis and Specimen Submitted for specific case ? information. ? For the full text of the [facility] report(s) please refer to Non-DH ? Documentation Pathology in the electronic health record (eDH). ? CLINICAL INFORMATION ? Specimen Submitted: ? CONSULTATION CASE ? A - 20 slides labeled [id number], collection date 09/01/2014. ? [id number] ? Report to: ? [facility] ? Surgical Pathology Department ? [facility], [facility], 2nd Floor ? [address] ? [place], [place] ??[address] ? 09/28/2014 3:18 PM EDT [facility] Consult Case 09/24/2014 10:0 6 AM EDT 09/24/2014 10:06 AM EDT Tk Vergara MD PATHOLOGY/CYTOLOGY O COLIN [facility]ILL[facility] MAURER [facility] [place] [address] documented in this encounter Visit Diagnoses Not on filedocumented in this encounter Care Teams Automation And Control Engineer Relationship Specialty Start Date End Date Bobby Headley MD [address] [place] [address] PCP - General 01/29/14 11/28/17 documented as of this encounter
--- OUTSIDE RECORDS SUMMARY | 2023-11-16 06:33 | XMS_ITS | Encounter Summary ---
[place] [address] Care Team Providers Care Kennel Keeper Name Role Phone Bobby Headley MD Primary Care Provider [phone] Encounter Details Date Type Department Care Team (Late st Contact Info) Description 12/17/2014 8:15 AM EDT Office Visit Radiation Oncology at [address] [phone] Nitin Stauffer MD [address] [place] [address] DR RADIATION ONCOLOGY [place], [place] [phone] Cancer of prostate with intermediate recurrence risk [...] Uncontrollable bleeding A Radiation Oncology doctor is svp research & ebusiness operations after our normal hours and on weekends. To call for urgent medical issues from radiation treatments that can not wait until normal business hours, please call and have the metal drilling machine operator page the Radiation Oncologist svp research & ebusiness operations. Nitin Ramirez MD documented in this encounter Progress Notes * Nitin Stauffer MD - 12/17/2014 8:10 AM EDT [facility] Acute Care [...] AM EDT Office Visit Hematology/Oncology at [address] [phone] Adrianne Ramon MD [facility] DR [place] [address] Yael Merlos APRN [facility] [place] [address] 11/21/2023 10:00 AM EDT Infusion Hematology Oncology at [address] [address] 11/23/2023 11:00 AM EDT Office Visit Hematology and Oncology at [place] [phone] Reynold Proctor MD [facility] [place] [address] 11/23/2023 1:00 PM EDT Appointment Hematology and Oncology at [place] [address] 11/23/2023 2:00 PM EDT Office Visit Hematology [place] [address] Micha Givens Jr., MD [facility] DR [place] [address] 11/23/2023 3:30 PM EDT Hospital Encounter MRI at [place] [address] Micha Givens Jr., MD [facility] DR [place] [address] documented as of this encounter Visit Diagnoses Diagnosis Cancer of prostate with intermediate recurrence risk (stage T2b-c or Cierra 7 or PSA 10-20) Malignant neoplasm of prostate documented in this encounter Care Teams Kennel Keeper Relationship Specialty Start Date End Date Bobby Headley MD [address] [place] [address] PCP - General 01/29/14 11/28/17 documented as of this encounter
--- OUTSIDE RECORDS SUMMARY | 2023-11-16 06:33 | XMS_ITS | Encounter Summary ---
Author Organization [facility] [place] [address] Care Team Providers Care Outside Sales Executive Name Role Phone Bobby Headley MD Primary Care Provider [phone] Encounter Details Date Type Department Care Team (Latest Contact Info) Description 10/05/2014 Unscheduled Encounter Radiation Oncology at [address] [phone] Christine Garcia, RN Malignant neoplasm [...] Prescriptions to get filled and things to rock picker from the pharmacy: [employer] [...] relax for the procedure.You will need a local hazmat driver to take you home. ??? Change [...] any other concerns. Future Appointments: MRI at [facility]: 10/19 at 11:10 AM arrive at : Your CT simulation, planning session will be done at [facility]. 10/21 arrive at 10:30. You will see the nurse first for patient education .You will need a comfortably full bladder by 11:00 How to reach us: Radiation Oncology [facility] [place] [address] fax After office hours phone: [phone] - ask for radiation oncology doctor inspector packer glass container Radiation Oncology [address] [address] documented in this encounter Progress Notes * Christine Fernando RN - 10/05/2014 2:22 PM EDT Radiation Oncology Nurse Note [place], [place] See AVS for instructions provided to patient and his in preparation for Gold hamper maker machine implant procedure scheduled for Sun10/14/14. Prescriptions for Cipro and Dexamethasone sent to [facility]. documented in this encounter Plan of Treatment Upcoming Encounters Date Type Department Care Team (Late st Contact Info) Description 11/21/2023 9:30 AM EDT Office Visit Hematology/Oncology at [address] [address] Adrianne Ramon MD [facility] HEMATOLOGY [place] [address] Yael Merlos APRN [facility] [place] [address] 11/21/2023 10:00 AM EDT Infusion Hematology Oncology at [address] [address] 11/23/2023 11:00 AM EDT Office Visit Hematology [place] [address] Reynold Proctor MD [facility] [place] [address] 11/23/2023 1:00 PM EDT Appointment Hematology and Oncology at [place] [phone] 11/23/2023 2:00 PM EDT Office Visit Hematology and Oncology at [place] [phone] Micha Givens Jr., MD [facility] DR [place]EMATOLOGY [place] [address] 11/23/2023 3:30 PM EDT Hospital [place] [phone] Micha Givens Jr., MD [facility] DR HEMATOLOGY [place] [address] documented as of this encounter Visit Diagnoses Diagnosis Malignant neoplasm of prostate documented in this encounter Care Teams Outside Sales Executive Relationship Specialty Start Date End Date Bobby Headley MD [address] [place] [address] PCP - General 01/29/14 11/28/17 documented as of this encounter
--- OUTSIDE RECORDS SUMMARY | 2023-11-16 06:33 | XMS_ITS | Encounter Summary ---
[place] [address] Care Team Providers Care Bee Rancher Name Role Phone Bobby Headley MD Primary Care Provider [phone] Encounter Details Date Type Department Care Team (Late st Contact Info) Description 10/21/2014 11:00 AM EDT Ancillary Appointment Radiation Oncology at [address] [phone] Nitin Stauffer MD [address] [place] [address] DR RADIATION ONCOLOGY [place], [place] [id number] Social History Tobacco Use Types Packs/Day Years [...] do to help manage the side effects. Label [place] - They take the doctors radiation prescription [...] a well balanced diet is recommended. The barista and nurse will inform you of any [...] AM to 5 PM [facility] phone# [phone] [facility] If you have questions about your radiation [...] in injury A Radiation Oncology doctor is business operations manager after our normal hours and on weekends. To call for urgent medical issues from radiation treatments that can not wait until normal business hours, please call for either location and have the production boring machine operator page the Radiation Oncologist in call. documented in this encounter Progress Notes * Nitin Stauffre MD - 10/21/2014 11:16 AM EDT Simulation Note for External Beam Radiation Treatment Planning [facility] Bolivar Freire is a 64 y.o. [...] AM EDT Office Visit Hematology/Oncology at [address] [phone] Adrianne Ramon MD [facility] [place] [address] Yael Merlos APRN [facility] [place] [address] 11/21/2023 10:00 AM EDT Infusion Hematology Oncology at [address] [phone] 11/23/2023 11:00 AM EDT Office Visit Hematology [place] [address] Reynold Proctor MD [facility] [place] [address] 11/23/2023 1:00 PM EDT Appointment Hematology [place] [address] 11/23/2023 2:00 PM EDT Office Visit Hematology and Oncology at [place] [phone] Micha Givens Jr., MD [facility] DR [place] [address] 11/23/2023 3:30 PM EDT Hospital Encounter MRI at [place] [phone] Micha Givens Jr., MD [facility] [place] [address] documented as of this encounter Visit Diagnoses Not on filedocumented in this encounter Care Teams Bee Rancher Relationship Specialty Start Date End Date Bobby Headley MD [address] [place] [address] PCP - General 01/29/14 11/28/17 documented as of this encounter
--- OUTSIDE RECORDS SUMMARY | 2023-11-16 06:33 | XMS_ITS | Encounter Summary ---
[place] [address] Care Team Providers Care Production Broaching Machine Operator Name Role Phone Bobby Headley MD Primary Care Provider [phone] Encounter Details Date Type Department Care Team (Late st Contact Info) Description 12/24/2014 8:15 AM EST Office Visit Radiation Oncology at [address] [phone] Nitin Stauffer MD [address] [place] [address] DR RADIATION ONCOLOGY [place], [place] [id number] Cancer of prostate with intermediate recurrence risk [...] Uncontrollable bleeding A Radiation Oncology doctor is director river restoration after our normal hours and on weekends. To call for urgent medical issues from radiation treatments that can not wait until normal business hours, please call and have the mixing house operator page the Radiation Oncologist director river restoration. Nitin Ramirez MD documented in this encounter Progress Notes * Nitin Stauffer MD - 12/24/2014 8:16 AM EST [facility] On Treatment Visit Patient [...] AM EDT Office Visit Hematology/Oncology at [address] [phone] Adrianne Ramon MD [facility] HEMATOLOGY [place] [address] Yael Merlos APRN [facility] HEMATOLOGY [place] [address] 11/21/2023 10:00 AM EDT Infusion Hematology Oncology at [address] [phone] 11/23/2023 11:00 AM EDT Office Visit Hematology [place] [address] Reynold Proctor MD [facility] [place] [address] 11/23/2023 1:00 PM EDT Appointment Hematology [place] [address] 11/23/2023 2:00 PM EDT Office Visit Hematology and Oncology at [place] [phone] Micha Givens Jr., MD [facility] DR HEMATOLOGY [place] [address] 11/23/2023 3:30 PM EDT Hospital Encounter MRI at [place] [phone] Micha Givens Jr., MD [facility] DR HEMATOLOGY [place] [address] documented as of this encounter Visit Diagnoses Diagnosis Cancer of prostate with intermediate recurrence risk (stage T2b-c or Cierra 7 or PSA 10-20) Malignant neoplasm of prostate documented in this encounter Care Teams Production Broaching Machine Operator Relationship Specialty Start Date End Date Bobby Headley MD [address] [address] PCP - General 01/29/14 11/28/17 documented as of this encounter
--- OUTSIDE RECORDS SUMMARY | 2023-11-16 06:33 | XMS_ITS | Encounter Summary ---
[place] [address] Care Team Providers Care Salary Manager Name Role Phone Bobby Headley MD Primary Care Provider [phone] Encounter Details Date Type Department Care Team (Late Contact Info) Description 10/21/2014 Orders Only Radiation Oncology at [address] [phone] Nitin Stauffer MD [address] [place] [address] DR RADIATION ONCOLOGY [place], [place] [phone] Social History Tobacco Use Types Packs/Day Years [...] AM EDT Office Visit Hematology/Oncology at [address] [phone] Adrianne Ramon MD [facility] HEMATOLOGY [place] [address] Yael Merlos, GATHERING WORKER [facility] HEMATOLOGY [place] [address] 11/21/2023 10:00 AM EDT Infusion Hematology Oncology at [address] [address] 11/23/2023 11:00 AM EDT Office Visit Hematology and Oncology at [place] [phone] Reynold Proctor MD [facility] [place] [address] 11/23/2023 1:00 PM EDT Appointment Hematology and Oncology at [address] 11/23/2023 2:00 PM EDT Office Visit Hematology and Oncology at [place] [phone] Micha Givens Jr., MD [facility] DR [place] [address] 11/23/2023 3:30 PM EDT Hospital Encounter MRI at [place] [phone] Micha Givens Jr., MD [facility] DR HEMATOLOGY [place] [address] documented as of this encounter Procedures Procedure [...] is a Non-reportable exam Nitin Stauffer MD [facility] FILM LIBRARY ORD ERABLES documented in this encounter Visit Diagnoses Not on filedocumented in this encounter Care Teams Salary Manager Relationship Specialty Start Date End Date Bobby Headley MD [address] [place] [address] PCP - General 01/29/14 11/28/17 documented as of this encounter
--- OUTSIDE RECORDS SUMMARY | 2023-11-16 06:33 | XMS_ITS | Encounter Summary ---
[place] [address] Care Team Providers Care Otr Flatbed Driver Name Role Phone Bobby Headley MD Primary Care Provider [phone] Encounter Details Date Type Department Care Team (Late st Contact Info) Description 10/14/2014 8:30 AM EDT Procedure visit Radiation Oncology at [address] [phone] Nitin Stauffer MD [address] [place] [address] DR RADIATION ONCOLOGY [place], [place] [phone] Cancer of prostate with intermediate recurrence risk (stage T2b-c or Clay 7 or PSA 10-20) Discharge Disposition: Home [...] to undergo MRI of the prostate at [facility]. * Christine Fernando RN - 10/14/2014 8:26 [...] needed for mild discomfort. He has the [facility] phone number and verbalized understanding to ask for the big data solutions architect radiation oncologist if he needs to after clinic hours. Time of discharge: 10:00 vital signs stable,and gait steady and dressed himself. Dr Stauffer saw him briefly before discharge. documented in this encounter Plan of Treatment Upcoming Encounters Date Type Department Care Team (Late st Contact Info) Description 11/21/2023 9:30 AM EDT Office Visit Hematology/Oncology at [address] [phone] Adrianne Ramon MD [facility] [place] [address] Yael Merlos APRN [facility] [place] [address] 11/21/2023 10:00 AM EDT Infusion Hematology Oncology at [address] [address] 11/23/2023 11:00 AM EDT Office Visit Hematology [place] [address] Reynold Proctor MD [facility] [place] [address] 11/23/2023 1:00 PM EDT Appointment Hematology and Oncology at [place] [phone] 11/23/2023 2:00 PM EDT Office Visit Hematology and Oncology at [place] [phone] Micha Givens Jr., MD [facility] DR [place] [address] 11/23/2023 3:30 PM EDT Hospital [place] [phone] Micha Givens Jr., MD [facility] DR [place] [address] documented as of this encounter Visit Diagnoses Diagnosis Cancer of prostate with intermediate recurrence risk (stage T2b-c or Clay 7 or PSA 10-20) Malignant neoplasm of prostate documented in this encounter Care Teams Otr Flatbed Driver Relationship Specialty Start Date End Date Bobby Headley MD [address] [place] [address] PCP - General 01/29/14 11/28/17 documented as of this encounter
--- OUTSIDE RECORDS SUMMARY | 2023-11-16 06:33 | XMS_ITS | Encounter Summary ---
[place] [address] Care Team Providers Care Burlesque Dancer Name Role Phone Bobby Headley MD Primary Care Provider Encounter Details Date Type Department Care Team (Late st Contact Info) Description 10/15/2014 Telephone Radiation Oncology at [address] [phone] Christine Garcia RN Social History [...] Post-Procedure Phone Note Name: Cheo Freire A#: [id number] : 1950 Date/Time of Call: 10/15/2014 6:10 [...] YES NO x Comments/interventions: Section Radiation Oncology [facility] documented in this encounter Plan of Treatment Upcoming Encounters Date Type Department Care Team (Late st Contact Info) Description 11/21/2023 9:30 AM EDT Office Visit Hematology/Oncology at [address] [phone] Adrianne Ramon MD [facility] DR HEMATOLOGY [place] [address] Yael Merlos APRN [facility] DR HEMATOLOGY [place] [address] 11/21/2023 10:00 AM EDT Infusion Hematology Oncology at [address] [phone] 11/23/2023 11:00 AM EDT Office Visit Hematology [place] [phone] Reynold Proctor MD [facility] [place] [place] [address] 11/23/2023 1:00 PM EDT Appointment Hematology [place] [phone] 11/23/2023 2:00 PM EDT Office Visit Hematology [place] [phone] Micha Givens Jr., MD [facility] DR HEMATOLOGY [place] [address] 11/23/2023 3:30 PM EDT Hospital [place] [address] Micha Givens Jr., MD [facility] DR HEMATOLOGY [place] [address] documented as of this encounter Visit Diagnoses Not on filedocumented in this encounter Care Teams Burlesque Dancer Relationship Specialty Start Date End Date Bobby Headley MD [address] [place] [address] PCP - General 01/29/14 11/28/17 documented as of this encounter
[2023-11-16 06:59] VITALS: BP 143/80; PULSE 87; O2SAT 96
[2023-11-16] MEDS: diazePAM 2 MG TAB 8 MG PO (06:59)
== END 2023-11-16 07:00 | disposition home or self-care (01) ==
LOC: ER 06:25
PROVIDERS: Emergency Provider Student in an Organized Health Care Education/Training Program; PCP Family Medicine
DX: M43.6 Torticollis (principal)
CPT/HCPCS: 96372; 99284; J1885

== ENCOUNTER 2023-11-16 10:28 | Day surgery (SDC) | payer MEDICARE, SELFPAY ==
--- NOTE | 2023-11-15 20:11 | PDOC.DSDIS_ITS ---
Date of service: 11/16/23 Time of Service: 13:29 Discharge Plan Disposition Patient Disposition: Home Condition: Good Discharge Details Reason For Visit: EGD and colonoscopy Attending Provider: Ad Melendrez Primary Care Provider: Frederick Maede Home Meds and New Rx's Prescriptions: Continued All Day Allergy (cetirizine) 10 mg capsule 10 mg PO DAILY PRN aspirin 325 mg tablet 325 mg PO DAILY psyllium husk [Metamucil] 0.4 gram capsule 0.4 g PO DAILY acetaminophen [Tylenol Extra Strength] 500 mg tablet 1,000 mg PO Q6H PRN amlodipine 5 mg tablet 5 mg PO DAILY Qty: 90 3RF aspirin [Aspirin Low-Strength] 81 MG tablet,chewable 81 mg PO DAILY (DME) blood-glucose meter [[employer] UltraMini] 1 EACH kit 1 ea Miscellaneous DAILY Qty: 1 (DME) pen needle, diabetic [1st Tier Unifine Pentips] 31 gauge x 1/4 needle See Rx Instructions .Route Qty: 100 0RF Rx Instructions: As directed allopurinol 100 mg tablet 200 mg PO DAILY Qty: 180 3RF (DME) lancets Misc 1 ea Intradermal DAILY Qty: 100 3RF Rx Instructions: test QID lenalidomide [Revlimid] 20 mg capsule 20 mg PO DAILY Rx Instructions: swallow whole with glass of water; do not open, crush, chew , break, or dissolve potassium chloride 20 mEq tablet extended release 20 meq PO DAILY Rx Instructions: for 30 days diphenoxylate-atropine [Lomotil] 2.5-0.025 mg tablet 1 tab PO QID PRN Bacid with Lactospore 1 billion cell capsule 1 cell PO DAILY colchicine 0.6 mg tablet 0.6 mg PO DAILY PRN (DME) blood sugar diagnostic Strip See Dose Instructions .ROUTE .MEDSUPPLY Qty: 100 3RF Dose Instruction: As directed Rx Instructions: test TID docusate sodium 100 mg capsule 100 mg PO BID PRN insulin asp prt-insulin aspart [Novolog Mix 70-30FlexPen U-100] 100 unit/mL (7 0-30) insulin pen 9 unit subcut QDAY Qty: 15 0RF Rx Instructions: 11/08/23: Decreased to 9 units once daily. See task. -hb prochlorperazine maleate 10 mg tablet Patient Comments: TAKE ONE TABLET BY MOUTH EVERY 6 HOURS NEEDED FOR NAUSEA Rituxan 10 mg/mL concentrate IV Discontinued bisacodyl 5 mg tablet,delayed release (DR/EC) 5 mg PO ONCE Qty: 4 0RF Rx Instructions: Per Colonoscopy bowel prep instructions polyethylene glycol 3350 17 gram/dose powder 238 g PO ONCE Qty: 238 0RF Rx Instructions: For Colonoscopy bowel prep, as directed by office Discharge Instructions Additional Instructions: Cheo, it was very nice to see you and Claritza today. I am sorry her neck has been giving you trouble. I hope that the procedures were comfortable for you today. The EGD and colonoscopy went very smoothly. Your prep was excellent, and I could see everything fine. With regards to the EGD, everything appears normal from the upper part of your esophagus through the third portion of your duodenum. This is about as far as I can see with my camera for a routine study. I do not see any signs of ulcers or irritation, or anything that would explain anemia. Similarly, your colonoscopy was also normal. No polyps, no tumors, or nothing else worrisome. You do have some internal hemorrhoids. I typically recommend plenty of fiber in your diet as the first-line of treatment for hemorrhoids. Oibo-teo-tiutyiv treatments would also be a very reasonable approach if you find hemorrhoids bothersome. Otherwise, I do not recommend any specific therapies at this point. In quick summary, I do not see any contraindications to proceeding with CAR-T therapy at least as the EGD or colonoscopy would relate to it. If you need anything, or have any questions at all, please do not hesitate to ask. 1. If tolerated, consume a soft, low fiber diet for 1-2 days. 2[address] Do not drive, drink alcohol, operate machinery, make critical decisions, or do activities that require coordination or balance for 24 hours. 3. Because air was put into your colon during the procedure, expelling air from your rectum (passing gas or farting) is normal. 4. You may not have a bowel movement for 1-3 days because of the colonoscopy prep. This is normal. 5. You may experience a sore throat for 24 to 48 hours. You may use throat lozenges or gargle with warm salt water to relieve the discomfort. 6. Because air was put into your stomach during the procedure, you may experience some belching. 7. Go directly to the emergency room if you notice any of the following: Develop chills (warm to touch), or if you have a thermometer and your temperature is above 101 Difficulty breathing or difficultly swallowing Persistent vomiting Severe abdominal pain, other than gas cramps Severe chest pain Black, tarry stools Any bleeding ? exceeding one tablespoon 8. Call your physician if the site where your intravenous was started becomes red, swollen, painful, and warm to touch. 9. Your physician has reviewed your pre-procedure medications. Please continue to take those medications as previously ordered. You will be given specific information/education regarding any changes to your medications before leaving. Activity:: Activity as Tolerated Diet:: As Tolerated Discharge Orders Discharge Orders: Discharge Order (Routine); Ordered 11/15/23 Ordered By: Ad Melendrez DS: Diagnosis Discharge Diagnosis (1) Iron deficiency: Status: Acute Asessment and Plan: Normal EGD and colonoscopy
--- NOTE | 2023-11-15 20:13 | ENDO_ITS ---
Date of service: 11/16/23 Time of Service: 13:34 Endoscopy Report DATE OF PROCEDURE: 11/16/23 PRE-OP DIAGNOSIS: Iron deficiency anemia POST-OP DIAGNOSIS: other (Normal EGD and normal colonoscopy) PROCEDURE: EGD and colonoscopy SURGEON: Ad Melendrez ANESTHESIA TYPE: General:No Airway ESTIMATED BLOOD LOSS: 0 PATHOLOGY: none sent COMPLICATIONS: None DISPOSITION: same day INDICATIONS: Cheo is a 73 year old man who is anticipating CAR-T therapy. He has an iron deficiency anemia and his oncologist would like to rule out a GI source of that problem prior to initiating that treatment. PREP: Miralax/Dulcolax PROCEDURE START TIME: 12:58 PROCEDURE END TIME: 13:16 COLONOSCOPY RETRACTION TIME: 6 FINDINGS: Normal EGD and normal colonoscopy PROCEDURE DESCRIPTION: After the initiation of anesthesia, and with the assistance of a bite block, I advanced a standard gastroscope through the mouth past the hypopharynx and into the esophagus.? Under the direct vision of the scope, I advanced down the esophagus into the stomach.? Once I entered the stomach, I performed a brief inspection, followed by retroflexion towards the gastric cardia.? This appeared normal.? After that, I gently advanced the scope around the incisura angularis and examined the pylorus.? This also appeared normal.? Next, I advanced the scope through the pylorus into the duodenum.? The mucosa was pink and healthy appearing.? There were no abnormalities.? I was able to visualize bile draining into the duodenum through the ampulla Vater. ?Next, I began retracting the endoscope.? The stomach was examined again, and there was no evidence of any irritation, inflammation, ulceration, or any other pathology that would explain iron deficiency anemia. I then gently desufflated some of the stomach, and withdrew the endoscope into the distal esophagus. The GE junction was normal- appearing, and the Z-line was regular. Narrowband imaging was used to assist with analysis here. Z-line measured 36 cm from the incisors. ?Finally, I withdrew the scope along the length of the esophagus taking great care to examine the entirety of the mucosa.? I did not appreciate any abnormalities. We then adjusted Cheo into the left lateral decubitus position. Great care was taken to ensure appropriate padding and support. Particular attention was paid to his neck as he has been experiencing neck discomfort and spasms. I began by performing an external anorectal exam.? Perineum and skin were normal, as was the anal verge.?? Next, I performed a digital rectal exam.? This felt normal. Next, I advanced a colonoscope into the rectal vault.? I performed retroflexion.? There are internal hemorrhoids, without any evidence of recent bleed.? Using insufflation, I then advanced the colonoscope beyond the rectal folds and into the sigmoid colon before advancing towards the cecum.? The scope was noted to be in the cecum by identification of the ileocecal valve and appendiceal orifice.? I then began withdrawing the colonoscope using repeated irrigation as necessary for full evaluation of the colonic mucosa. ?Once the scope was withdrawn to the level of the rectum, great care was taken to examine portions of the rectal folds.? Finally, the scope was withdrawn and the patient was brought to the same-day surgery recovery unit as the anesthetic wore off. ?The findings and instructions were shared with the patient prior to discharge. The [place] bowel prep score from right to left was 3, 3, 3
[2023-11-16 11:35] VITALS: BP 122/65; PULSE 64; RESP 16; TEMP 36.6; O2SAT 96
[2023-11-16] MEDS: Lactated Ringers 1,000 ML 80 ML IV (12:00)
--- NOTE | 2023-11-16 12:34 | ANES.PREOP_ITS ---
General Info Date of Service Date Performed: 11/16/23 Height: 5 ft 6 in Weight: 84.7 kg Body Mass Index (BMI): 30.1 Surgical Procedure: Operation Date: 11/16/23 12:20 Proposed Procedure Side Surgeon p Colonoscopy/Gastroscopy Ad Melendrez MD Actual Procedure Side Surgeon p Colonoscopy/Gastroscopy Ad Melendrez MD Meds Allergies and Home Medications Allergies Allergy/AdvReac Type Severity Reaction Status Date / Time No Known Allergies Allergy Verified 11/16/23 11:26 Home Medication ?Medication ?Instructions ?Recorded aspirin 81 mg chewable tablet 81 mg PO DAILY 06/24/12 (Aspirin Low-Strength) blood-glucose meter ([email or web address] ##1 07/31/16 UltraMini kit) cetirizine 10 mg capsule (All Day 10 mg PO DAILY PRN 01/16/18 Allergy (cetirizine)) amlodipine 5 mg tablet 5 mg PO DAILY #90 tabs 12/05/22 pen needle, diabetic 31 gauge x #100 ea 09/26/2302/22 (1st Tier Unifine Pentips) allopurinol 100 mg tablet 200 mg (2 x 100 mg) PO DAILY #180 10/01/23 tab-caps lancets #100 ea 10/02/23 Bacillus coagulans 1 billion cell 1 cell PO DAILY 10/17/23 capsule (Bacid with Lactospore) blood sugar diagnostic #100 ea 10/17/23 colchicine 0.6 mg tablet 0.6 mg PO DAILY PRN 10/17/23 diphenoxylate-atropine 2.5 1 tab PO QID PRN 10/17/23 mg-0.025 mg tablet (Lomotil) lenalidomide 20 mg capsule 20 mg PO DAILY 10/17/23 (Revlimid) potassium chloride 20 mEq 20 meq PO DAILY 10/17/23 tablet,extended release acetaminophen 500 mg tablet 1,000 mg PO Q6H PRN 10/23/23 (Tylenol Extra Strength) aspirin 325 mg tablet 325 mg PO DAILY 10/23/23 docusate sodium 100 mg capsule 100 mg PO BID PRN 10/23/23 psyllium husk 0.4 gram capsule 0.4 g PO DAILY 10/23/23 (Metamucil) insulin aspar prot-insulin aspart 9 unit (0.09 mL) subcut QDAY #15 mL 11/15/23 100 unit/mL (70-30) subcutaneous pen (Novolog Mix 70-30FlexPen U-100) prochlorperazine maleate 10 mg mg 11/16/23 tablet rituximab 10 mg/mL IV 11/16/23 concentrate,intravenous (Rituxan) Current Visit Medications: Current Medications Generic Name Dose Route Start Last Admin Trade Name Freq PRN Reason Stop Dose Admin Ringer's Solution 1,000 mls @ 80 mls/hr 11/16/23 06:00 11/16/23 12:00 IV 11/16/23 23:59 80 mls/hr INFUSION KASIE Administration IV Miscellaneous Supplies 1 each 11/16/23 06:00 Iv Access IV 11/16/23 23:59 DIRECTED KASIE Ondansetron HCl 4 mg 11/15/23 20:15 Ondansetron 4 Mg/2 Ml Vial IVP 12/15/23 20:14 Q4H PRN PRN Nausea / Vomiting Sodium Chloride 0 ml 11/16/23 06:00 Normal Saline Flush 10 Ml Syr IV 11/16/23 23:59 PRN PRN Sodium Chloride 0 ml 11/16/23 06:00 Normal Saline 10 Ml Vial IJ 11/16/23 23:59 DIRECTED PRN Sterile Water 0 ml 11/16/23 06:00 Water,Injection,Sterile 10 Ml Vial IJ 11/16/23 23:59 DIRECTED PRN PFSH Active Problems Active Problems: Problem Status Onset Code Acute torticollis Acute M43.6 Iron deficiency Acute E61.1 History of lymphoma Acute Z85.72 Hematoma of arm Acute S40.029A Superficial thrombophlebitis of left upper extremity Acute I80.8 Pneumonia Acute J18.9 C. difficile colitis Acute A04.72 Hyponatremia Acute E87.1 Hypokalemia Acute E87.6 SIRS (systemic inflammatory response syndrome) Acute R65.10 Rigors Acute R68.89 Urinary retention Acute R33.9 Thrombocytopenia Chronic D69.6 Acute hypokalemia Acute E87.6 Hemorrhoid thrombosis Acute K64.5 B-cell lymphoma Acute C85.10 Gout Acute 12/24/07 M10.9 Diabetes mellitus Chronic 07/03/12 E11.9 Medical History Medical History Airway compromise Lymphoma Lymphadenopathy Pain Lymphadenitis Actinic keratosis Fracture of phalanx of finger SOBOE (shortness of breath on exertion) likely due to reduced 02 carrying capacity due to anemia Prostate cancer (10/05/14) 2014 radiation RX/lupron Polyp of colon tiny rectal hyperplastic polyp Overweight regular exercise/dietary discretion advised Nystagmus History of tobacco use Essential hypertension (12/27/12) Diverticulosis of colon without diverticulitis Cataract (07/03/12) Anemia EGD-HH, ESOPH INFLAMMATION; 11/25 COLO-DIVERTICULOSIS, TINY RECTAL POLYP c-scope 2012: hyperpl. polyp Medical History Comments:: Pt. in ER this morning with stiff neck Surgical History Surgical History History of prostate surgery gold posts implanted Hx of appendectomy Hx of colonoscopy Tobacco Smoking/Tobacco Use Status: Former Tobacco Use Smokeless tobacco user: chewing tobacco (former use) Second hand exposure: No Alcohol Alcohol Intake: current Alcohol intake frequency: a few times a month Alcohol type: beer Substance Use Substance use: Never Substance use type: does not use Details: alcohol: t-2 years Vital Signs and Lab Results Vital Signs Most Recent Vital Signs in EMR: Most Recent Vital Signs Temp Pulse Resp BP Pulse Ox 36.6 C 64 16 122/65 96 11/16/23 11:35 11/16/23 11:35 11/16/23 11:35 11/16/23 11:35 11/16/23 11:35 Point of Care Results Point of Care Results: Finger Stick Blood Glucose 117 11/16/23 11:49 Lab Results Blood Type / Crossmatch: No Data to Display Complete Blood Count: No Data to Display Complete Metabolic Panel: No Data to Display Liver Function Panel: No Data to Display Coagulation Panel: No Data to Display Cardiac Panel: No Data to Display Arterial Blood Gas: No Data to Display Venous Blood Gas: No Data to Display Pancreas Panel: No Data to Display Thyroid Panel: No Data to Display Infectious Disease: No Data to Display Blood Cultures: No Data to Display Toxicology Panel: No Data to Display Imaging and Studies Imaging and Studies Study information below may be from another EMR and interpreted by another provider. Please see original notes in EMR for more complete details. EKG Summary: 11/15/22 Conclusion Sinus rhythm...normal P axis, V-rate 60- 99 Repol abnrm suggests ischemia, anterolateral...ST dep, T neg, I aVL V2-V6 Stress Test Summary: 05/10/15 Stress results: The rate-pressure product for the peak heart rate and blood pressure was 76119cg Hg/min. Stress ECG: TREADMILL PORTION OF MPI STRESS TEST ENDED IN 8 MINUTES & 6 SECONDS BECAUSE OF PT FATIGUE. MAX HR = 158. % OF TARGET = 103. METS ACHIEVED = 10.16. AVERAGE FUNCTIONAL CAPACITY. OCCASIONAL TO FREQUENT PVC'S, 2 COUPLETS SEEN. ELEVATED BP RESPONSE DURING EXERCISE. NO ANGINA. ISCHEMIC CHANGES NOTED IN BOTH INFERIOR AND ANTERIOR LATERAL LEADS DURING EXERCISE STAGES 2 & 3 AND UP TO 8 MINUTES RECOVERY PERIOD. EKG AND VITALS RETURNED TO BASELINE AT 9 MINUTES RECOVERY PERIOD. Myocardial perfusion: Imaging information: gated. Moderate size, mild intensity predominantly fixed inferior defect that resolves with AC. C/W diaphragmatic artifact. Ventricular Function (Wall Motion): The calculated left ventricular ejection fraction after stress: 50%. Echocardiogram Summary: 09/17/23 Conclusion Normal left ventricular wall thickness and chamber size. Ejection fraction is 60%. Wall motion is normal Normal right ventricular size and function Both atria are normal in size Aortic valve is trileaflet and mildly sclerotic without stenosis or regurgitation Normal mitral valve, mild regurgitation Carotid Artery Summary:: 05/04/15 IMPRESSION: No evidence of hemodynamically significant cervical carotid artery stenosis. Ordered By: Frederick Meade Anesthesia Assessment and Plan Anesthesia History Personal History: No History of Anesthesia Complications Family History: No Family History of Anesthesia Complications Exercise Tolerance Exercise Tolerance: Metabolic Equivalents<4 Pertinent Negatives Pertinent Negatives: No Symptoms of GERD, No Major Cardiovascular Symptoms or C omplaints and No Major Pulmonary Symptoms or Complaints Cardiac & Pulmonary Exam Cardiac Exam: Normal S1/S2 Heart Sounds Pulmonary Exam: Clear Bilateral Breath Sounds Implantable Cardiac Device Does patient have a Pacemaker or an ICD?: No Airway Exam Known Difficult Airway: No Mallampati Class: 3 Mouth Opening: Normal (> 3cm) Thyromental Distance: Greater than 3 cm Neck Range of Motion: Limited ROM (awoke with stiff neck yesterday am, worsened throughout day went to ER this am, very limited ROM) Neck Circumference: Normal Teeth Condition: Removable Dentures/Plates Upper, Removable Dentures/Plates Lower and Edentulous ASA Classification ASA Score: ASA 3 Emergency Case?: No NPO Status NPO Status: NPO Clears >2 hours, Solids >8 hours Anesthesia Plan Resuscitation Status: Full Code Anesthesia Technique: General Anesthesia Airway Planned: Natural Airway Monitors Used: Standard Monitors Preoperative Comments:: Position prior to sedation
[2023-11-16 12:35] VITALS: BMI 30.1
[2023-11-16 13:25] VITALS: BP 101/58; PULSE 54; RESP 16; TEMP 36; O2SAT 93
--- NOTE | 2023-11-16 14:04 | W.ANESPOSTOP ---
Postoperative Evaluation Date, Time and Location Date Performed: 11/16/23 Time Performed: 13:26 Patient Location: Day Surgery Unit Vital Signs Most Recent Imported Vital Signs: Most Recent Vital Signs Temp Pulse Resp BP Pulse Ox 36 C L 54 L 16 101/58 L 93 11/16/23 13:25 11/16/23 13:25 11/16/23 13:25 11/16/23 13:25 11/16/23 13:25 Pain Score Most Recent Pain Score: Most Recent Pain Score Pain Level 0 11/16/23 13:25 Assessment Mental Status: Awake (Alert & Oriented to Patient Baseline) Airway and Respiratory Function: Patent airway with normal (patient baseline) respiratory exam Cardiovascular Function: Hemodynamically Stable Hydration Status: Adequately Hydrated Nausea & Vomiting: No Nausea or Vomiting Pain: Pt. Denies Any Pain Peripheral Nerve Block: Patient did not receive a nerve block
[2023-11-16 14:32] VITALS: BP 170/75; PULSE 60; RESP 16; TEMP 36.1; O2SAT 95
== END 2023-11-16 14:25 | disposition home or self-care (01) ==
LOC: SUR 10:29
PROVIDERS: PCP Family Medicine; Visit Provider Surgery
PROC: (CPT 43239; principal; 2023-11-16 12:15)
DX: Z12.11 Encounter for screening for malignant neoplasm of colon (principal); E61.1 Iron deficiency; K64.8 Other hemorrhoids; M43.6 Torticollis; M54.2 Cervicalgia
CPT/HCPCS: 43239; G0105; 96372; 99284; 72125; J1885; J2704

== ENCOUNTER 2023-11-16 18:49 | Emergency (ER) | payer MEDICARE, SELFPAY ==
[2023-11-16 18:56] VITALS: BP 118/69; PULSE 72; RESP 16; TEMP 36.5; O2SAT 93
--- OUTSIDE RECORDS SUMMARY | 2023-11-16 18:57 | XMS_ITS | Encounter Summary ---
Author Organization [facility] Address [address] [place] [address] Care Team Providers Care Charge Preparation Technician Name Role Phone Bobby Headley MD Primary Care Provider [phone] Encounter Details Date Type Department Care Team (Late st Contact Info) Description 09/01/2014 Results Only [facility] [phone] Tk Vergara MD [address] [place] [address] Social History Tobacco Use Types Packs/Day Years [...] ? CHEO MORFIN ? Accession #: ? [id number] ? : ? 1950 (Age: 64) ??M [...] = 7 (60% 4) ? - Primary [place] pattern: ? Grade 4 ? - Secondary [...] William 09/03/2014 9:00 AM End of Report [facility] 09/01/2014 18:1 6 EDT 09/02/2014 18:16 EDT Tk Vergara MD PATHOLOGY ORDERABLES [facility] [address] [place] [address] documented in this encounter Visit Diagnoses Not on filedocumented in this encounter Care Teams Charge Preparation Technician Relationship Specialty Start Date End Date Bobby Headley MD [address] [place] [address] [phone] PCP - General 01/18/12 documented as of this encounter
--- OUTSIDE RECORDS SUMMARY | 2023-11-16 18:57 | XMS_ITS | Clinical Summary ---
Author Organization [facility] Address [address] [place] [address] Care Team Providers Care Labor Relations Analyst Name Role Phone Bobby Headley MD Primary Care Provider Encounters Date Type Department Care Team Description 10/03/2023 Lab Requisition [facility] Pathology & Laboratory [address] [address] Outr Resulting Lab, Provider 09/26/2023 Lab Requisition [facility] Pathology & Laboratory [address] [address] Outr Resulting Lab, Provider 09/19/2023 Lab Requisition [facility] Pathology & Laboratory [address] [address] Outr Resulting Lab, Provider from Last 3 [...] 610 - 1,616 mg/dL 10/04/2023 9:36 EDT [facility] IgA 92 85 - 499 mg/dL 10/04/2023 9:36 EDT [facility] IgM 118 35 - 242 mg/dL 10/04/2023 9:36 EDT [facility] Blood VENOUS BLOOD / Unknown 10/03/2023 9:10 EDT 10/03/2023 17:28 EDT Provider Outr Resulting Lab CHEMISTRY & BLOOD GAS ORDERABLES [facility] [address] [place] [address] from Last 3 Months Care Teams Labor Relations Analyst Relationship Specialty Start Date End Date Bobby Headley MD [address] [place] [address] [phone] PCP - General 01/18/12
--- OUTSIDE RECORDS SUMMARY | 2023-11-16 18:57 | XMS_ITS | Referral Summary ---
Author Organization [facility] Address [address] [place] [address] Care Team Providers Care Chip Washer Name Role Phone Bobby Headley MD Primary Care Provider [phone] Encounters Date Type Department Care Team Description 10/03/2023 Lab Requisition [facility] Pathology & Laboratory [address] [address] Outr Resulting Lab, Provider 09/26/2023 Lab Re[address] [facility] Pathology & Laboratory [address] [address] Outr Resulting Lab, Provider 09/19/2023 Lab [address] [facility] Pathology Laboratory [address] [address] Outr Resulting Lab, Provider from Last 3 [...] 610 - 1,616 mg/dL 10/04/2023 9:36 EDT [facility] IgA 92 85 - 499 mg/dL 10/04/2023 9:36 EDT [facility] IgM 118 35 - 242 mg/dL 10/04/2023 9:36 EDT [facility] Blood VENOUS BLOOD / Unknown 10/03/2023 9:10 EDT 10/03/2023 17:28 EDT Provider Outr Resulting Lab CHEMISTRY & BLOOD GAS ORDERABLES [facility] [address] [place] [address] from Last 3 Months Care Teams Chip Washer Relationship Specialty Start Date End Date Bobby Headley MD [address] [place] [address] [phone] PCP - General 01/18/12
--- OUTSIDE RECORDS SUMMARY | 2023-11-16 18:57 | XMS_ITS | Encounter Summary ---
Author Organization [facility] Address [address] [place] [address] Care Team Providers Care User Experience Manager Name Role Phone Bobby Headley MD Primary Care Provider [phone] Encounter Details Date Type Department Care Team (Late st Contact Info) Description 03/22/2022 Lab Requisition [facility] Pathology & Laboratory Medicine - [facility] [address] [place], [place] [id number] Outr Resulting Lab, Provider Social History Tobacco [...] PSA <0.1 <=6.5 ng/mL 03/22/2022 23:03 EST [facility] Blood VENOUS BLOOD / Unknown 03/22/2022 9:35 EST 03/22/2022 21:50 EST Narrative [facility] - 03/22/2022 23:03 EST NOTE: Serum PSA concentration should not be interpreted as absolute evidence for the presence or absence of malignant disease. Assayed on Siemens [employer] XPT using chemiluminescent technology.??Values obtained by using different assay methods cannot be used interchangeably. Provider Outr Resulting Lab CHEMISTRY & BLOOD GAS ORDERABLES [facility] [address] [place] [address] documented in this encounter Visit Diagnoses Not on filedocumented in this encounter Care Teams User Experience Manager Relationship Specialty Start Date End Date Bobby Headley MD [address] [place] [address] [phone] PCP - General 01/18/12 documented as of this encounter
--- OUTSIDE RECORDS SUMMARY | 2023-11-16 18:57 | XMS_ITS | Encounter Summary ---
Author Organization [facility] Address [address] [place] [address] Care Team Providers Care Sound Editor Name Role Phone Bobby Haedley MD Primary Care Provider Encounter Details Date Type Department Care Team (Late st Contact Info) Description 09/26/2023 Lab Requisition [facility] Pathology & Laboratory Medicine - [address] [address] Outr Resulting Lab, Provider Social History Tobacco [...] 610 - 1,616 mg/dL 09/27/2023 10:20 EDT [facility] IgA 108 85 - 499 mg/dL 09/27/2023 10:20 EDT [facility] IgM 129 35 - 242 mg/dL 09/27/2023 10:20 EDT [facility] Blood VENOUS BLOOD / Unknown 09/26/2023 7:47 EDT 09/26/2023 17:12 EDT Provider Outr Resulting Lab CHEMISTRY & BLOOD GAS ORDERABLES [facility] [address] [place] [address] documented in this encounter Visit Diagnoses Not on filedocumented in this encounter Care Teams Sound Editor Relationship Specialty Start Date End Date Bobby Headley MD [address] [place] [address] [phone] PCP - General 01/18/12 documented as of this encounter
--- OUTSIDE RECORDS SUMMARY | 2023-11-16 18:57 | XMS_ITS | Encounter Summary ---
Author Organization [facility] Address [address] [place] [address] Care Team Providers Care Administrative Personal Assistant Name Role Phone Bobby Headley MD Primary Care Provider [phone] Encounter Details Date Type Department Care Team (Late st Contact Info) Description 09/19/2023 Lab Requisition [facility] Pathology & Laboratory Medicine - [address] [address] Outr Resulting Lab, Provider Social History Tobacco [...] GAS ORDERABLES [facility] [address] [place] [address] documented in this encounter Visit Diagnoses Not on filedocumented in this encounter Care Teams Administrative Personal Assistant Relationship Specialty Start Date End Date Bobby Headley MD [address] [place] [address] [phone] PCP - General 01/18/12 documented as of this encounter
--- OUTSIDE RECORDS SUMMARY | 2023-11-16 18:57 | XMS_ITS | Encounter Summary ---
Author Organization [facility] Address [address] [place] [address] Care Team Providers Care [employer] Principal Name Role Phone Bobby Headley MD Primary Care Provider [phone] Encounter Details Date Type Department Care Team (Late st Contact Info) Description 10/06/2022 Lab Requisition [facility] Pathology & Laboratory Medicine - [facility] [address] [place] [address] Lg Ramírez MD [address] [place] [address] Generalized enlarged lymph nodes Social History [...] B-cell lymphoproliferative disorder. See comment. 12:09 EDT [facility] Comment The results of flow cytometry are those of involvement by a lymphoproliferative disorder of B-cell lineage expressing surface lambda light chains. The immunophenotypic profile is non-specific.. Cell size, as assessed by light scatter criteria, suggests a large B-cell lymphoma. Correlation of these findings with morphologic and clinical data is essential. Please refer to report [id number] for morphologic details. 3 12:09 [facility] Attestation By the signature below, the attending physician certifies that they have 1) personally conducted a gross and/or microscopic examination of the described specimen(s), and/or personally interpreted the results of laboratory testing of the described specimen(s), and 2) personally rendered or confirmed the above diagnosis. 3 12:09 [facility] at 1209 Clinical History 72 yo male with massive LAD (cervical/tongue/ret rophar.) 3 12:09 [facility] Description The specimen [...] CD4+ and CD8+ subsets represented. 3 12:09 [facility] Flow Markers CD10, CD19, CD20, CD3, CD4, CD45, CD5, CD8, [place], and Lambda 3 12:09 [facility] FDA Disclaimer This test was developed and its performance characteristics determined by the Department of Pathology and Laboratory Medicine, [facility], [place], [place] It has not been cleared or [...] complexity clinical laboratory testing. 3 12:09 EDT [facility] Sample Analyzed Date and Time 10/06/22 12:30 3 12:09 EDT [facility] Scanned Images 3 12:09 EDT [facility] Tissue STRUCTURE OF ROOT OF TONGUE / Unknown 10/05/2022 8:00 EDT 10/06/2022 9:32 EDT Lg Ramírez MD PATHOLOGY ORDERABLES [facility] [address] [place] [address] documented in this encounter Visit Diagnoses Diagnosis Generalized enlarged lymph nodes Enlargement of lymph nodes documented in this encounter Care Teams [employer] Principal Relationship Specialty Start Date End Date Bobby Headley MD [address] [place] [phone] PCP - General 01/18/12 documented as of this encounter
--- OUTSIDE RECORDS SUMMARY | 2023-11-16 18:57 | XMS_ITS | Encounter Summary ---
Author Organization [facility] Address [address] [place] [address] Care Team Providers Care Photocomposing Machine Operator Name Role Phone Bobby Headley MD Primary Care Provider [phone] Encounter Details Date Type Department Care Team (Late st Contact Info) Description 10/06/2022 Lab Requisition [facility] Pathology & Laboratory Medicine - [facility] [address] [place] [address] Lg Ramírez MD [address] [place] [address] Generalized enlarged lymph nodes Social History [...] Name Priority Date/Time Associated Diagnosis Comments NON DISPOSAL PLANT OPERATOR/FNA CYTOLOGY Today 10/05/2022 8:00 EDT Generalized enlarged lymph nodes documented in this encounter Results * NON DISPOSAL PLANT OPERATOR/FNA CYTOLOGY (10/05/2022 8:00 EDT) Note to Patient The following pathology results have been interpreted by your pathologist and may be available to you before your health provider has had the opportunity to review them. Please allow time for your provider to receive these results and explore management options, if applicable. 10/09/2022 11:35 EDT [facility] Final Diagnosis A. LYMPH NODE, NECK, LATERALITY NOT SPECIFIED, ULTRASOUND-GUIDED FINE-NEEDLE ASPIRATION: - Mixed lymphoid population present, cannot exclude lymphoproliferative disorder. See comment. - Negative for metastatic carcinoma. 10/09/2022 11:35 [facility] Diagnosis Comment The specimen consists of a single thin prep slide with a mixed population lymphocytes. A lymphoproliferative disorder cannot be excluded based on this specimen alone. Correlation with the concurrent flow cytometry report ([id number]) and surgical biopsy specimen ([id number]) is essential. 10/09/2022 11:35 [facility] Attestation By the signature below, the attending physician certifies that they have personally conducted a gross and/or microscopic examination of the described specimens and rendered or confirmed the above diagnosis. 10/09/2022 11:35 [facility] at 1135 Clinical History Massive LAD; prostate cancer; R59.1 10/09/2022 11:35 [facility] Gross Description A. One vial of CytoLyt was received and processed by selective cellular enhancement technique. 10/09/2022 11:35 [facility] Performing Lab [facility] 10/09/2022 11:35 [facility] Scanned Images 10/09/2022 11:35 [facility] Fine Needle Aspirate ENTIRE LYMPH NODE / Unknown 10/05/2022 8:00 EDT 10/06/2022 6:21 EDT Lg Ramírez MD PATHOLOGY ORDERABLES [facility] [address] [place] [address] documented in this encounter Visit Diagnoses Diagnosis Generalized enlarged lymph nodes Enlargement of lymph nodes documented in this encounter Care Teams Photocomposing Machine Operator Relationship Specialty Start Date End Date Bobby Headley MD [address] [place] [address] [phone] PCP - General 01/18/12 documented as of this encounter
--- OUTSIDE RECORDS SUMMARY | 2023-11-16 18:57 | XMS_ITS | Encounter Summary ---
Author Organization [facility] Address [address] [place] [address] Care Team Providers Care Medical Research Associate Name Role Phone Bobby Headley MD Primary Care Provider [phone] Encounter Details Date Type Department Care Team (Late st Contact Info) Description 10/06/2022 Lab Requisition [facility] Pathology & Laboratory Medicine - [address] [phone] Outr Resulting Lab, Provider Social History Tobacco [...] filedocumented in this encounter Care Teams Medical Research Associate Relationship Specialty Start Date End Date Bobby Headley MD [address] [place] [address] [phone] PCP - General 01/18/12 documented as of this encounter
--- OUTSIDE RECORDS SUMMARY | 2023-11-16 18:57 | XMS_ITS | Encounter Summary ---
Author Organization [facility] Address [address] [place] [address] Care Team Providers Care Party Supply Specialist Name Role Phone Bobby Headley MD Primary Care Provider [phone] Encounter Details Date Type Department Care Team (Late st Contact Info) Description 03/10/2019 Lab Requisition [facility] Pathology & Laboratory Medicine - [facility] [address] [place] [address] Unknown, Provider, Social History Tobacco Use Types [...] 6.5 ng/mL 03/11/2019 10:56 EST [facility] Blood VENOUS BLOOD / Unknown 03/10/2019 9:05 EST 03/10/2019 15:40 EST Narrative [facility] - 03/11/2019 10:56 EST NOTE: Serum PSA concentration should not be interpreted as absolute evidence for the presence or absence of malignant disease. Assayed on Siemens ADVIA [employer]arri [employer]aur XPT using chemiluminescent technology.??Values obtained by using different assay methods cannot be used interchangeably. Provider Unknown CHEMISTRY & BLOOD GA S ORDERABLES [facility] [address] [place] [address] documented in this encounter Visit Diagnoses Not on filedocumented in this encounter Care Teams Party Supply Specialist Relationship Specialty Start Date End Date Bobby Headley MD [address] [place] [phone] PCP - General 01/18/12 documented as of this encounter
--- OUTSIDE RECORDS SUMMARY | 2023-11-16 18:57 | XMS_ITS | Encounter Summary ---
Author Organization [facility] Address [address] [place] [address] Care Team Providers Care Gis Software Engineer Name Role Phone Bobby Headley MD Primary Care Provider Encounter Details Date Type Department Care Team (Late st Contact Info) Description 10/06/2022 Lab Requisition [facility] Pathology & Laboratory Medicine - [facility] [address] [place] [address] Lg Ramírez MD [address] [place] [address] Generalized enlarged lymph nodes Social History [...] Diffuse Large B-Cell Lymphoma. 10/17/2022 13:09 EDT [facility] Addendum electronically signed [...] and BCL-2 protein (Double Expressor.) Flow cytometry ([id number]) supports this interpretation. The differential classification of this lesion is diffuse large B-cell lymphoma versus high grade B-cell lymphoma with MYC and BCL-2 rearrangement. Material has been sent to [facility] to assess the status of these [...] (SP7, Thermo Scientific) Background T-cells CD20 (L26, [place]) diffusely positive in Neoplastic B-cells PAX-5 (1EW, Leica) diffusely positive in Neoplastic B-cells CD10 (SP67, [place]) Negative BCL-6 (G/191E/A8, [place]) Positive MUM-1 (MUM1p, Dako) Positive Myc (Y69, Abcam) Positive BCL-2 Oncoprotein (124, [place]) Positive Ki67 (MIB-1) (K2, Leica) Greater than 95% of cells in cycle Cyclin D1(SP4-R, [place]) Negative SAPPHIRE JOSE (VGA9126-F, Leica) Negative. 10/17/2022 13:09 EDT [facility] Clinical History Massive LAD, history of prostate cancer; clinical diagnosis code: R59.1 10/17/2022 13:09 EDT [facility] Gross Description A. Received in formalin labelled with proper patient identification (initials D, D) and left tongue base are multiple pale plasencia irregular soft tissue fragments which measure 0.8 x 0.6 x 0.5 cm in aggregate and are submitted in toto in A1. TAHMINA NELSON(ASCP) 10/06/2022 15:22 10/17/2022 13:09 EDT [facility] Performing Lab [facility] 13:09 EDT [facility] Scanned Images 10/17/2022 13:09 EDT [facility] Tissue TONGUE STRUCTURE / Unknown 10/05/2022 8:00 EDT 10/06/2022 8:28 EDT Lg Ramírez MD PATHOLOGY ORDERABLES [facility] [address] [place] [address] documented in this encounter Visit Diagnoses Diagnosis Generalized enlarged lymph nodes Enlargement of lymph nodes documented in this encounter Care Teams Gis Software Engineer Relationship Specialty Start Date End Date Bobby Headley MD [address] [place] [phone] PCP - General 01/18/12 documented as of this encounter
--- OUTSIDE RECORDS SUMMARY | 2023-11-16 18:57 | XMS_ITS | Encounter Summary ---
Author Organization [facility] Address [address] [place] [address] Care Team Providers Care Dining Room Server Name Role Phone Bobby Headley MD Primary Care Provider [phone] Encounter Details Date Type Department Care Team (Late st Contact Info) Description 06/13/2023 Lab Requisition [facility] Pathology & Laboratory Medicine - [address] [phone] Outr Resulting Lab, Provider Social History Tobacco [...] 610 - 1,616 mg/dL 06/14/2023 11:26 EDT [facility] IgA 119 85 - 499 mg/dL 06/14/2023 11:26 EDT [facility] IgM 124 35 - 242 mg/dL 06/14/2023 11:26 EDT [facility] Blood VENOUS BLOOD / Unknown 06/13/2023 10:17 EDT 06/13/2023 17:36 EDT Provider Outr Resulting Lab CHEMISTRY & BLOOD GAS ORDERABLES [facility] [address] [place] [address] documented in this encounter Visit Diagnoses Not on filedocumented in this encounter Care Teams Dining Room Server Relationship Specialty Start Date End Date Bobby Headley MD [address] [phone] PCP - General 01/18/12 documented as of this encounter
--- OUTSIDE RECORDS SUMMARY | 2023-11-16 18:57 | XMS_ITS | Encounter Summary ---
Author Organization [facility] Address [address] [place] [address] Care Team Providers Care Library Services Assistant Name Role Phone Bobby Headley MD Primary Care Provider [phone] Encounter Details Date Type Department Care Team (Late st Contact Info) Description 03/05/2020 Lab Requisition [facility] Pathology & Laboratory Medicine - [address] [phone] Outr Resulting Lab, Provider Social History Tobacco [...] 0.0 - 6.5 ng/mL 03/06/2020 0:00 EST [facility] Blood VENOUS BLOOD / Unknown 03/05/2020 7:50 EST 03/05/2020 17:28 EST Narrative [facility] - 03/06/2020 0:00 EST NOTE: Serum PSA concentration should not be interpreted as absolute evidence for the presence or absence of malignant disease. Assayed on Siemens ADVIA OncoEthixaur XPT using chemiluminescent technology.??Values obtained by using different assay methods cannot be used interchangeably. Provider Outr Resulting Lab CHEMISTRY & BLOOD GAS ORDERABLES [facility] [address] [place] [address] documented in this encounter Visit Diagnoses Not on filedocumented in this encounter Care Teams Library Services Assistant Relationship Specialty Start Date End Date Bobby Headley MD [address] [place] [phone] PCP - General 01/18/12 documented as of this encounter
--- OUTSIDE RECORDS SUMMARY | 2023-11-16 18:57 | XMS_ITS | Encounter Summary ---
Author Organization [facility] Address [address] [place] [address] Care Team Providers Care Day Porter Name Role Phone Bobby Headley MD Primary Care Provider [phone] Encounter Details Date Type Department Care Team (Late st Contact Info) Description 10/11/2022 Lab Requisition [facility] Pathology & Laboratory Medicine - [address] [address] Dedrick Quintanilla MD [address] [facility] [address] [place] [address] Encounter for other general examination [...] Caleb Lloyd SEE NOTE 10/16/2022 15:45 EDT [facility] Comment: Test ?Result ?Flag ??Unit ??RefValue [...] Slides, Formalin ??Source ?Tongue ?Tissue ID ? [id number] ?Method ?SEE NOTE ?Locus and probes ? [Strategy;#Nuclei;Class] ?8CEN(D8Z2),8q24.1(MYC),14q32(IGH) ?[DFISH;100;AM] ?8q24.1(5'MYC,3'MYC) ?[BAP;100;AM] ?Probe strategies include: ?DFISH=dual color, double fusion; ?BAP=break-apart probe. ?Scoring Method: Manual ?Probe vendors include: ?AM = [employer] ([place], [place]) ??Additional Information ?Not Reported ?Disclaimer ?SEE NOTE ?Applicable to Analyte Specific Reagent (ASR) and Laboratory ?Developed Tests (LDT). This test was developed and its ?performance characteristics determined by [facility] in a ?manner consistent with CLIA requirements. [...] ? Masha Padilla M.D. ?Test Performed by: ?[facility] ?[address] [place] [address] ?Addressograph Operator: Jose David Lowry M.D. Ph.D.; CLIA# [id number] Tissue TISSUE SPECIMEN / Unknown 10/05/2022 8:00 EDT 10/11/2022 7:41 EDT Dedrick Quintanilla MD CHEMISTRY & BLOOD GA S ORDERABLES Performing Organization Address City/State/[facility] Co de Phone Number [facility] [address] [place] [address] documented in this encounter Visit Diagnoses Diagnosis Encounter for other general examination documented in this encounter Care Teams Day Porter Relationship Specialty Start Date End Date Bobby Headley MD [address] [place] [address] PCP - General 01/18/12 documented as of this encounter
--- OUTSIDE RECORDS SUMMARY | 2023-11-16 18:57 | XMS_ITS | Encounter Summary ---
Author Organization [facility] Address [address] [place] [address] Care Team Providers Care Packer Insulation Name Role Phone Unavailable Primary Care Provider Unavailabl e Encounter Details Date Type Department Care Team (Late st Contact Info) Description 08/24/1999 Results Only [facility] conversion [address] [place] [address] Micha Pineda MD [address] [place] [phone] Social History Tobacco Use Types Packs/Day Years [...] ? CHEO MORFIN ? Accession #: ? [id number] ? : ? 1950 (Age: 49) ??M ? Collect Date: ? 08/24/1999 ? Location: ? [facility] ? Receive Date: ? 08/24/1999 ? Provider: RHYS PINEDA MD Copy to: MARY HEWITT MD ? Final Pathologic Diagnosis: ? Colon, left transverse (80 cm), biopsies: - Hyperplastic polyp. Document reviewed and electronically signed by: Tresa Waite [facility] Report ??Date: 08/26/1999 16:44 By the [...] MD PATHOLOGY ORDERABLES [facility] [address] [place] [address] documented in this encounter Visit Diagnoses Not on filedocumented in this encounter
--- OUTSIDE RECORDS SUMMARY | 2023-11-16 18:57 | XMS_ITS | Encounter Summary ---
Author Organization [facility] Address [address] [place] [address] Care Team Providers Care Heavy Truck Technician Name Role Phone Unavailable Primary Care Provider Unavailabl e Encounter Details Date Type Department Care Team (Late st Contact Info) Description 01/17/2012 Results Only [facility] Laboratory Services - [facility] [address] [place], [place] [phone] Andreas Temple MD [address] [place] [address] Social History Tobacco Use Types [...] ? CHEO MORFIN ? Accession #: ? [id number] ? : ? 1950 (Age: 61) ??M [...] specimens (A) and (B) were reviewed. ??(Dr. Lagos)/[facility] Document reviewed and electronically signed by: [...] Temple MD PATHOLOGY ORDERABLES Performing Organization Address City/State/[facility] Co de Phone Number [facility] [address] [place] [address] documented in this encounter Visit Diagnoses Not on filedocumented in this encounter
--- OUTSIDE RECORDS SUMMARY | 2023-11-16 18:57 | XMS_ITS | Encounter Summary ---
Author Organization [facility] Address [address] [place] [address] Care Team Providers Care Circuit Breaker Mechanic Name Role Phone Bobby Headley MD Primary Care Provider [phone] Encounter Details Date Type Department Care Team (Late st Contact Info) Description 10/03/2023 Lab Requisition [facility] Pathology & Laboratory Medicine - [address] [phone] Outr Resulting Lab, Provider Social History Tobacco [...] 610 - 1,616 mg/dL 10/04/2023 9:36 EDT [facility] IgA 92 85 - 499 mg/dL 10/04/2023 9:36 EDT [facility] IgM 118 35 - 242 mg/dL 10/04/2023 9:36 EDT [facility] Blood VENOUS BLOOD / Unknown 10/03/2023 9:10 EDT 10/03/2023 17:28 EDT Provider Outr Resulting Lab CHEMISTRY & BLOOD GAS ORDERABLES [facility] [address] [place] [address] documented in this encounter Visit Diagnoses Not on filedocumented in this encounter Care Teams Circuit Breaker Mechanic Relationship Specialty Start Date End Date Bobby Headley MD [address] [phone] PCP - General 01/18/12 documented as of this encounter
--- OUTSIDE RECORDS SUMMARY | 2023-11-16 18:57 | XMS_ITS | Encounter Summary ---
Author Organization [facility] Address [address] [place] [address] Care Team Providers Care County Court Judge Name Role Phone Unavailable Primary Care Provider Unavailabl e Encounter Details Date Type Department Care Team (Late st Contact Info) Description 12/19/2006 Results Only [facility] conversion [address] [place] [address] Micha Pineda MD [address] [place] [phone] Social History Tobacco Use Types Packs/Day Years [...] ? CHEO MORFIN ? Accession #: ? [id number] ? : ? 1950 (Age: 56) ??M [...] specimen is entirely submitted as (C). ??(Dr. Echavarria)/[facility] End of Report [facility] 12/19/2006 12/19/2006 15: 40 EDT Micha Pineda MD PATHOLOGY ORDERABLES Performing Organization Address City/State/[facility] Co de Phone Number [facility] [address] [place] [address] documented in this encounter Visit Diagnoses Not on filedocumented in this encounter
--- OUTSIDE RECORDS SUMMARY | 2023-11-16 18:57 | XMS_ITS | Encounter Summary ---
Author Organization [facility] Address [address] [place] [address] Care Team Providers Care Public Health Informatician Name Role Phone Bobby Headley MD Primary Care Provider [phone] Encounter Details Date Type Department Care Team (Late st Contact Info) Description 10/26/2022 Lab Requisition [facility] Pathology & Laboratory Medicine - [address] [address] Outr Resulting Lab, Provider Social History Tobacco [...] Antigen Detection Negative Negative 10/26/2022 23:03 EDT [facility] Urine URINE / Unknown 10/25/2022 6 :05 EDT 10/26/2022 22:47 EDT Provider Outr Resulting Lab MICROBIOLOGY - GENERAL ORDERABLES [facility] [address] [place] [address] documented in this encounter Visit Diagnoses Not on filedocumented in this encounter Care Teams Public Health Informatician Relationship Specialty Start Date End Date Bobby Headley MD [address] [place] [phone] PCP - General 01/18/12 documented as of this encounter
--- OUTSIDE RECORDS SUMMARY | 2023-11-16 18:57 | XMS_ITS | Encounter Summary ---
Author Organization [facility] Address [address] [place] [address] Care Team Providers Care Plumber Helper Name Role Phone Bobby Headley MD Primary Care Provider [phone] Encounter Details Date Type Department Care Team (Late st Contact Info) Description 10/11/2022 Lab Requisition [facility] Pathology & Laboratory Medicine - [address] [phone] Outr Resulting Lab, Provider Social History Tobacco [...] 610 - 1,616 mg/dL 10/12/2022 9:35 EDT [facility] IgA 182 85 - 499 mg/dL 10/12/2022 9:35 EDT [facility] IgM 233 35 - 242 mg/dL 10/12/2022 9:35 EDT [facility] Blood VENOUS BLOOD / Unknown 10/11/2022 10:55 EDT 10/11/2022 17:38 EDT Provider Outr Resulting Lab CHEMISTRY & BLOOD GAS ORDERABLES [facility] [address] [place] [address] documented in this encounter Visit Diagnoses Not on filedocumented in this encounter Care Teams Plumber Helper Relationship Specialty Start Date End Date Bobby Headley MD [address] [place] [phone] PCP - General 01/18/12 documented as of this encounter
--- OUTSIDE RECORDS SUMMARY | 2023-11-16 18:57 | XMS_ITS | Encounter Summary ---
Author Organization [facility] Address [address] [place] [address] Care Team Providers Care Pool Table Operator Name Role Phone Bobby Headley MD Primary Care Provider [phone] Encounter Details Date Type Department Care Team (Late st Contact Info) Description 11/16/2022 Lab Requisition [facility] Pathology & Laboratory Medicine - [facility] [address] [place], [place] [address] Outr Resulting Lab, Provider Social History Tobacco [...] Salmonella PCR Negative Negative 11/16/2022 23:10 EDT [facility] Shigella/Enteroin vasive E. coli Negative Negative 11/16/2022 23:10 EDT [facility] HN LAB CAMPYLOBACTER PCR Negative Negative 11/16/2022 23:10 EDT [facility] Shiga Toxin PCR Negative Negative 23:10 EDT [facility] Feces SPECIMEN FROM RECTUM / Unknown 11/16/2022 0:35 EDT 11/16/2022 18:28 EDT Provider Outr Resulting Lab MICROBIOLOGY - GENERAL ORDERABLES [facility] [address] [place] [address] documented in this encounter Visit Diagnoses Not on filedocumented in this encounter Care Teams Pool Table Operator Relationship Specialty Start Date End Date Bobby Headley MD [address] [place] [phone] PCP - General 01/18/12 documented as of this encounter
--- OUTSIDE RECORDS SUMMARY | 2023-11-16 18:57 | XMS_ITS | Encounter Summary ---
Author Organization [facility] Address [address] [place] [address] Care Team Providers Care Ortho Assistant Name Role Phone Bobby Headley MD Primary Care Provider [phone] Encounter Details Date Type Department Care Team (Latest Contact Info) Description 09/01/2014 13:19 EDT - 09/01/2014 23:59 EDT Hospital Encounter [address] [address] Unknown, Provider, Discharge Disposition: Home or Self Care Social History Tobacco Use Types Packs/Day Years Used Date Smoking Tobacco: Never Assessed Sex and Gender Information Value Date Recorded Sex Assigned at Not on file Gender Identity Not on file Sexual Orientation Not on file documented as of this encounter Discharge Disposition Disposition Code Departure Means Destination Home or Self Shelter documented in this encounter Plan of Treatment Not on file documented as of this encounter Visit Diagnoses Not on filedocumented in this encounter Care Teams Ortho Assistant Relationship Specialty Start Date End Date Bobby Headley MD [address] [place] [phone] PCP - General 01/18/12 documented as of this encounter
--- OUTSIDE RECORDS SUMMARY | 2023-11-16 18:57 | XMS_ITS | Encounter Summary ---
Author Organization [facility] Address [address] [place] [address] Care Team Providers Care Iron Carrier Name Role Phone Bobby Headley MD Primary Care Provider [phone] Encounter Details Date Type Department Care Team (Late st Contact Info) Description 03/11/2021 Lab Requisition [facility] Pathology & Laboratory Medicine - [address] [phone] Outr Resulting Lab, Provider Social History Tobacco [...] 0.0 - 6.5 ng/mL 03/11/2021 21:52 EST [facility] Blood VENOUS BLOOD / Unknown 03/11/2021 12:38 EST 03/11/2021 21:02 EST Narrative [facility] - 03/11/2021 21:52 EST NOTE: Serum PSA concentration should not be interpreted as absolute evidence for the presence or absence of malignant disease. Assayed on Siemens ADVIA Teracentaur XPT using chemiluminescent technology.??Values obtained by using different assay methods cannot be used interchangeably. Provider Outr Resulting Lab CHEMISTRY & BLOOD GAS ORDERABLES [facility] [address] [place] [address] documented in this encounter Visit Diagnoses Not on filedocumented in this encounter Care Teams Iron Carrier Relationship Specialty Start Date End Date Bobby Headley MD [address] [place] [phone] PCP - General 01/18/12 documented as of this encounter
--- OUTSIDE RECORDS SUMMARY | 2023-11-16 18:58 | XMS_ITS | Encounter Summary ---
Author Organization [facility] Address [facility] [place] [address] Care Team Providers Care Shingle Inspector Name Role Phone Frederick Meade MD Primary Care Provider [phone] Reason for Visit * Reason Comments Medication Refill Encounter Details Date Type Department Care Team (Late st Contact Info) Description 10/11/2023 Refill Hematology/Oncology at [address] [phone] Adrianne Ramon MD [facility] [address] [place] [address] Diffuse large B-cell lymphoma of lymph nodes [...] AM EDT Office Visit Hematology/Oncology at [address] [phone] Adrianne Ramon MD [facility] [address] [place] [address] Yael Merlos, NON CLINICAL ADVISOR [facility] [place] [address] 11/21/2023 10:00 AM EDT Infusion Hematology Oncology at [address] [phone] 11/23/2023 11:00 AM EDT Office Visit Hematology [place] [address] Reynold Proctor MD [facility] [place] [address] 11/23/2023 1:00 PM EDT Appointment Hematology [place] [address] 11/23/2023 2:00 PM EDT Office Visit Hematology [place] [address] Micha Givens Jr., MD [facility] [address] [place] [address] 11/23/2023 3:30 PM EDT Hospital [place] [address] Micha Givens Jr., MD [facility] [address] [place] [address] documented as of this encounter Visit Diagnoses Diagnosis Diffuse large B-cell lymphoma of lymph nodes of multiple regions documented in this encounter Care Teams Shingle Inspector Relationship Specialty Start Date End Date Frederick Meade MD [address] [place] [address] PCP - General Family Medicine 11/29/17 documented as of this encounter
--- OUTSIDE RECORDS SUMMARY | 2023-11-16 18:58 | XMS_ITS | Encounter Summary ---
Author Organization Formerly [facility] Address [facility] [place] [address] Care Team Providers Care Jawbone Breaker Name Role Phone Frederick Meade MD Primary Care Provider +1 -[phone] Reason for Visit * Reason Onset Date Comments Hyperglycemia 09/26/2023 Encounter Details Date Type Department Care Team (Late st Contact Info) Description 09/26/2023 Notes Only Hematology [place] [address] Yael Merlos APRN [facility] [place] [address] Hyperglycemia Social History Tobacco Use Types Packs/Day [...] this encounter Progress Notes * Yael Merlos, BONDING AND COMPOSITE FABRICATOR - 09/26/2023 11:21 AM EDT Cheo returns to clinic today for continued treatment with Revlimid and Rituxan. Today is day 8 ofcycle #1. He is scheduled to receive a dose of Rituxan today. [facility] [...] in clinic. I have asked the clinical multiple resaw operator to stop by and review dietary recommendations. Yael Merlos, MSN, BONDING AND COMPOSITE FABRICATOR Nurse practitioner Section of Hematology documented in this encounter Plan of Treatment Upcoming Encounters Date Type Department Care Team (Late st Contact Info) Description 11/21/2023 9:30 AM EDT Office Visit Hematology/Oncology at [address] [phone] Adrianne Ramon MD [facility] [place] [address] Yael Merlos APRN [facility] DR [place] [address] 11/21/2023 10:00 AM EDT Infusion Hematology Oncology at [address] [address] 11/23/2023 11:00 AM EDT Office Visit Hematology [place] [phone] Reynold Proctor MD [facility] [place] [address] 11/23/2023 1:00 PM EDT Appointment Hematology [place] [phone] 11/23/2023 2:00 PM EDT Office Visit Hematology [place] [address] Micha Givens Jr., MD [facility] DR [place] [address] 11/23/2023 3:30 PM EDT Hospital [place] [address] Micha Givens Jr., MD [facility] [place] [address] documented as of this encounter Visit Diagnoses Not on filedocumented in this encounter Care Teams Jawbone Breaker Relationship Specialty Start Date End Date Frederick Meade MD [address] [place] [address] PCP - General Family Medicine 11/29/17 documented as of this encounter
--- OUTSIDE RECORDS SUMMARY | 2023-11-16 18:58 | XMS_ITS | Encounter Summary ---
Author Organization Formerly [facility] Address [facility] [place] [address] Care Team Providers Care Fishery Biologist Name Role Phone Frederick Meade MD Primary Care Provider +1 [phone] Encounter Details Date Type Department Care Team (Latest Contact Info) Description 10/10/2023 2:14 PM EDT - 10/10/2023 2:28 PM EDT Hospital Encounter XRay at [address] [place] [address] Micha Givens Jr., MD [facility] HEMATOLOGY [place] [address] Diffuse large B-cell lymphoma of lymph nodes [...] AM EDT Office Visit Hematology/Oncology at [address] [phone] Adrianne Ramon MD [facility] DR HEMATOLOGY [place] [address] Yael Merlos APRN [facility] DR HEMATOLOGY [place] [address] 11/21/2023 10:00 AM EDT Infusion Hematology Oncology at [address] [phone] 11/23/2023 11:00 AM EDT Office Visit Hematology [place] [phone] Reynold Proctor MD [facility] [place] [address] 11/23/2023 1:00 PM EDT Appointment Hematology [place] [phone] 11/23/2023 2:00 PM EDT Office Visit Hematology [place] [address] Micha Givens Jr., MD [facility] HEMATOLOGY [place] [address] 11/23/2023 3:30 PM EDT Hospital [place] [address] Micha Givens Jr., MD [facility] DR HEMATOLOGY [place] [address] documented as of this encounter Procedures Procedure Name Priority Date/Time Associated Diagnosis Comments XR CHEST PA AND LATERAL Routine 10/10/2023 2:21 PM EDT 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 Pre-op testing documented in this encounter Results * XR Chest PA & Lateral (Generic) (10/10/2023 2:21 PM EDT) WORKSTATION ID [id number] RAD Anatomical Region Laterality Modality Chest N/A [...] who have questions please contact the health residential caregiver that requested your imaging first. ? Narrative [...] patients who have questions please contactthe health residential caregiver that requested your imaging first. Micha Givens Jr., MD IMG DX ORDERABLES documented in this encounter Visit Diagnoses Diagnosis 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 Pre-op testing Preoperative examination, unspecified documented in this encounter Care Teams Fishery Biologist Relationship Specialty Start Date End Date Frederick Meade MD [address] [place] [address] PCP - General Family Medicine 11/29/17 documented as of this encounter
--- OUTSIDE RECORDS SUMMARY | 2023-11-16 18:58 | XMS_ITS | Encounter Summary ---
Author [place] [address] Care Team Providers Care Highway Construction Inspector Name Role Phone Frederick Meade MD Primary Care Provider +1 [phone] Encounter Details Date Type Department Care Team (Latest Contact Info) Description 10/10/2023 2:48 PM EDT - 10/10/2023 11:59 PM EDT Hospital En[place] [phone] Diffuse large B-cell lymphoma of lymph nodes [...] AM EDT Office Visit Hematology/Oncology at [address] [address] Adrianne Ramon MD [facility] [place] [address] Yael Merlos APRN [facility] [place] [address] 11/21/2023 10:00 AM EDT Infusion Hematology Oncology at [address] [phone] 11/23/2023 11:00 AM EDT Office Visit Hematology [place] [phone] Reynold Proctor MD [facility] [place] [address] 11/23/2023 1:00 PM EDT Appointment Hematology [place] [phone] 11/23/2023 2:00 PM EDT Office Visit Hematology [place] [address] Micha Givens Jr., MD [facility] [place] [address] 11/23/2023 3:30 PM EDT Hospital [place] [address] Micha Givens Jr., MD [facility] [place] [address] documented as of this encounter Procedures Procedure [...] PFT FEV1/FVC Pre-BD Z-Score -2.14 COMPAS PFT NZX14-84 Actual Pre-BD 1.11 % COMPAS PFT IYO22-12 Predicted 2 % COMPAS PFT MTO60-46 Pre-BD % of Predicted 56 % COMPAS PFT BUM63-92 Pre-BD Z-Score -1.17 COMPAS PFT DLCO Hb [...] unspecified documented in this encounter Care Teams Highway Construction Inspector Relationship Specialty Start Date End Date Frederick Meade MD [address] [facility] [address] [place] [address] PCP - General Family Medicine 11/29/17 documented as of this encounter
--- OUTSIDE RECORDS SUMMARY | 2023-11-16 18:58 | XMS_ITS | Encounter Summary ---
Author Organization [facility] Address [facility] [place] [address] Care Team Providers Care Cone Chocolate Dipper Name Role Phone Frederick Meade MD Primary Care Provider +1 -[phone] Encounter Details Date Type Department Care Team (Late st Contact Info) Description 10/10/2023 Orders Only Hematology Oncology at [address] [phone] Tania Rosales, RN Diffuse large [...] AM EDT Office Visit Hematology/Oncology at [address] [address] Adrianne Ramon MD [facility] DR HEMAT[place] [address] Yael Merlos APRN [facility] DR [place]EM[place] [address] 11/21/2023 10:00 AM EDT Infusion Hematology Oncology at [address] [address] 11/23/2023 11:00 AM EDT Office Visit Hematology [place] [address] Reynold Proctor MD [facility] [place] [address] 11/23/2023 1:00 PM EDT Appointment Hematology [place] [address] 11/23/2023 2:00 PM EDT Office Visit Hematology [place] [address] Micha Givens Jr., MD [facility] DR [place] [address] 11/23/2023 3:30 PM EDT Hospital [place] [address] Micha Givens Jr., MD [facility] DR [place]EMATOLOG[place] [address] documented as of this encounter Visit Diagnoses Diagnosis Diffuse large B-cell lymphoma of lymph nodes of multiple regions documented in this encounter Care Teams Cone Chocolate Dipper Relationship Specialty Start Date End Date Frederick Meade MD [address] [place] [address] PCP - General Family Medicine 11/29/17 documented as of this encounter
--- OUTSIDE RECORDS SUMMARY | 2023-11-16 18:58 | XMS_ITS | Encounter Summary ---
Author Organization [facility] [place] [address] Care Team Providers Care Weigher Packing Name Role Phone Frederick Meade MD Primary Care Provider +1 -[phone] Encounter Details Date Type Department Care Team [...] AM EDT Office Visit Hematology/Oncology at [address] [phone] Adrianne Ramon MD [facility] [address] [place] [address] Yael Merlos APRN [facility] [address] [place] [address] 11/21/2023 10:00 AM EDT Infusion Hematology Oncology at [address] [address] 11/23/2023 11:00 AM EDT Office Visit Hematology [place] [phone] Reynold Proctor MD [facility] [place] [address] 11/23/2023 1:00 PM EDT Appointment Hematology [place] [phone] 11/23/2023 2:00 PM EDT Office Visit Hematology [place] [address] Micha Givens Jr., MD [facility] [place] [address] 11/23/2023 3:30 PM EDT Hospital [place] [address] Micha Givens Jr., MD [facility] [address] [place] [address] documented as of this encounter Visit Diagnoses Not on filedocumented in this encounter Care Teams Weigher Packing Relationship Specialty Start Date End Date Frederick Meade MD [address] [place] [address] [address] [place] [address] PCP - General Family Medicine 11/29/17 documented as of this encounter
--- OUTSIDE RECORDS SUMMARY | 2023-11-16 18:58 | XMS_ITS | Encounter Summary ---
Author Organization [facility] Address [facility] [place] [address] Care Team Providers Care Assistant Professor Of Marine Biology Name Role Phone Frederick Meade MD Primary Care Provider +1 -[phone] Reason for Visit * Reason Comments Chemotherapy [id number] * Treatment/Therapy Plan Authorization (Routine) - Closed Specialty Diagnoses / Procedures Referred By Paul t Referred To Contact Hematology and Oncology Diagnoses Diffuse large B-cell lymphoma of lymph nodes of multiple regions Adrainne Ramon MD [facility] DR [place] [address] Stj Hem Onc Infusion [address] [place] [phone] Referral ID Status Reason Start Date Expiration Date Visits Re quested Visits Authorized [id number] Closed 09/12/2023 09/11/2024 99 99 Encounter Details Date Type Department Care Team (Late st Contact Info) Description 10/11/2023 8:30 AM EDT Infusion Hematology Oncology at [address] [address] Diffuse large B-cell lymphoma of [...] documented in this encounter Progress Notes * Iaona Jules RN - 10/11/2023 8:30 AM EDT Images from the original note were not included. INFUSION THERAPY ADMINISTRATION NOTES DIAGNOSIS: DLBCL CYCLE #: [id number] REASON FOR VISIT: Rituxan SUBJECTIVE Cheo offers no complaints. OBJECTIVE LAB DATA: completed today at [facility] adequate for treatment IV ACCESS: PIV [...] AM EDT Office Visit Hematology/Oncology at [address] [address] Adrianne Ramon MD [facility] DR [place] [address] Yael Merlos APRN [facility] DR [place]EMATOLOG[place] [address] 11/21/2023 10:00 AM EDT Infusion Hematology Oncology at [address] [address] 11/23/2023 11:00 AM EDT Office Visit Hematology [place] [address] Reynold Proctor MD [facility] [place] [address] 11/23/2023 1:00 PM EDT Appointment Hematology [place] [address] 11/23/2023 2:00 PM EDT Office Visit [place]ematology [place] [address] Micha Givens Jr., MD [facility] HEMATOLOGY [place] [address] 11/23/2023 3:30 PM EDT Hospital [place] [phone] Micha Givens Jr., MD [facility] HEMATOLOGY [place] [address] documented as of this encounter Visit Diagnoses [...] mL/hr documented in this encounter Care Teams Assistant Professor Of Marine Biology Relationship Specialty Start Date End Date Frederick Meade MD [address] [place] [address] PCP - General Family Medicine 11/29/17 documented as of this encounter
--- OUTSIDE RECORDS SUMMARY | 2023-11-16 18:58 | XMS_ITS | Encounter Summary ---
Author Organization Formerly [facility] [place] [address] Care Team Providers Care Manager Field Services Name Role Phone Frederick Meade MD Primary Care Provider +1 -[phone] Encounter Details Date Type Department Care Team (Latest Contact Info) Description 10/10/2023 1:04 PM EDT - 10/10/2023 2:13 PM EDT Hospital Encounter [place] [address] Discharge Disposition: Home Social History Tobacco Use [...] TEST DAILY 4 03/11/2018 ONETOUCH ULTRASOFT LANCETS [facility] USE TO TEST DAILY 2 06/07/2018 colchicine [...] AM EDT Office Visit Hematology/Oncology at [address] [address] [facility] HEMATOLOGY [place] [address] [facility] HEMATOLOGY [place] [address] 11/21/2023 10:00 AM EDT Infusion Hematology Oncology at [address] [address] 11/23/2023 11:00 AM EDT Office Visit Hematology [place] [address] [facility] [place] [address] 11/23/2023 1:00 PM EDT Appointment Hematology [place] [address] 11/23/2023 2:00 PM EDT Office Visit Hematology and Oncology at [place] [phone] Micha Givens Jr., MD [facility] DR [place] [address] 11/23/2023 3:30 PM EDT Hospital [place] [address] Micha Givens Jr., MD [facility] DR HEMATOLOGY [place] [address] documented as of this encounter Visit Diagnoses Not on filedocumented in this encounter Care Teams Manager Field Services Relationship Specialty Start Date End Date Frederick Meade MD [address] [place] [address] PCP - General Family Medicine 11/29/17 documented as of this encounter
--- OUTSIDE RECORDS SUMMARY | 2023-11-16 18:58 | XMS_ITS | Encounter Summary ---
Author Organization [facility] [place] [address] Care Team Providers Care Program Development Manager Name Role Phone Frederick Meade MD Primary Care Provider +1 -[phone] Encounter Details Date Type Department Care Team [...] AM EDT Office Visit Hematology/Oncology at [address] [address] Adrianne Ramon MD [facility] DR [place] [address] Yael Merlos APRN [facility] DR [place] [address] 11/21/2023 10:00 AM EDT Infusion Hematology Oncology at [address] [address] 11/23/2023 11:00 AM EDT Office Visit Hematology [place] [address] Reynold Proctor MD [facility] [place] [address] 11/23/2023 1:00 PM EDT Appointment Hematology [place] [address] 11/23/2023 2:00 PM EDT Office Visit Hematology [place] [address] Micha Givens Jr., MD [facility] [place] [address] 11/23/2023 3:30 PM EDT Hospital [place] [address] Micha Givens Jr., MD [facility] DR [place] [address] documented as of this encounter Visit Diagnoses Not on filedocumented in this encounter Care Teams Program Development Manager Relationship Specialty Start Date End Date Frederick Meade MD [address] [place] [address] [address] [place] [address] PCP - General Family Medicine 11/29/17 documented as of this encounter
--- OUTSIDE RECORDS SUMMARY | 2023-11-16 18:58 | XMS_ITS | Encounter Summary ---
Author Organization Formerly [facility] Address [facility] [place] [address] Care Team Providers Care Lumber Straightened Name Role Phone Frederick Meade MD Primary Care Provider +1 -[phone] Reason for Visit * Reason Onset Date Comments Emesis 11/05/2023 Encounter Details Date Type Department Care Team (Late st Contact Info) Description 11/05/2023 Telephone Hematology/Oncology at [address] [address] Tania Rosales RN Emesis Social [...] antinausea is being sent to [place] in [facility]. Keep up with fluid and nutrition [...] AM EDT Office Visit Hematology/Oncology at [address] [address] Adrianne Ramon MD [facility] DR HEMATOLOGY [place] [address] Yael Merlos, KARLA [facility] DR HEMATOLOGY [place] [address] 11/21/2023 10:00 AM EDT Infusion Hematology Oncology at [address] [phone] 11/23/2023 11:00 AM EDT Office Visit Hematology [place] [address] Reynold Proctor MD [facility] [place] [address] 11/23/2023 1:00 PM EDT Appointment Hematology [place] [address] 11/23/2023 2:00 PM EDT Office Visit Hematology [place] [address] Micha Givens Jr., MD [facility] DR HEMATOLOGY [place] [address] 11/23/2023 3:30 PM EDT Hospital [place] [address] Micha Givens Jr., MD [facility] HEMATOLOGY [place] [address] documented as of this encounter Visit Diagnoses Not on filedocumented in this encounter Care Teams Lumber Straightened Relationship Specialty Start Date End Date Frederick Meade MD [address] [place] [address] PCP - General Family Medicine 11/29/17 documented as of this encounter
--- OUTSIDE RECORDS SUMMARY | 2023-11-16 18:58 | XMS_ITS | Clinical Summary ---
Author Organization [facility] [place] [address] Care Team Providers Care Global Safety Officer Name Role Phone Frederick Meade MD Primary Care Provider [phone] Allergies No known active allergies Medications Medication [...] Team Description 11/07/2023 Telephone Hematology/Oncolog y at [address] [phone] Yael Merlos, COATING MACHINE OPERATOR HELPER Medication Refill (revlimid) 11/05/2023 Orders Only [place]ematology [place] [phone] Yael Merlos APRN 11/05/2023 Telephone Hematology/Oncolog y at [address] [phone] Tania Rosales RN Emesis 11/02/2023 Orders Only H[place] [phone] Micha Givens Jr., MD Disorder of thyroid; Thyroid disorder screen; Blood coagulation defect; Encounter for pre-operative laboratory testing; Pre-op testing; At risk for chemotherapy-induced bleeding 10/24/2023 1:00 PM EDT Infusion Hematology Oncology at [address] [phone] Diffuse large B-cell lymphoma of lymph nodes of multiple regions 10/24/2023 Travel 10/22/2023 Orders Only Hemat[place] [phone] Adrianne Ramon MD 10/17/2023 1:00 PM EDT TH Visit (TeleHealth) Hematology/Oncolog y at [address] [phone] Adrianne Ramon MD Stearns, Diane M, COATING MACHINE OPERATOR HELPER Diffuse large B-cell lymphoma of lymph nodes of multiple regions 10/17/2023 Travel 10/15/2023 Orders Only Hematology Oncology at [address] [address] Lucía Nelson, RN Diffuse large B-cell lymphoma of lymph nodes of multiple regions 10/15/2023 Refill Hematology/Oncolog y at [address] [phone] Adrianne Ramon MD Diffuse large B-cell lymphoma of lymph nodes of multiple regions 10/11/2023 8:30 AM EDT Infusion Hematology Oncology at [address] [address] Diffuse large B-cell lymphoma of lymph nodes of multiple regions 10/11/2023 Orders Only Hemat[place] [address] Micha Givens Jr., MD Diffuse large B-cell lymphoma of lymph nodes of multiple regions; Stem cell transplant candidate; Pre-op testing; Blood clotting disorder; Disorder of thyroid 10/11/2023 Notes Only Hematology/Oncolog y at [address] [address] Shelley Cason, PEDIATRIC DENTIST 10/11/2023 Refill Hematology/Oncolog y at [address] [address] Adrianne Ramon MD Diffuse large B-cell lymphoma of lymph nodes of multiple regions 10/10/2023 2:48 PM EDT - 10/10/2023 11:59 PM EDT Hospital [place] [address] Diffuse large B-cell lymphoma of lymph nodes of multiple regions; Stem cell transplant candidate; Pre-op testing Discharge Disposition: Home 10/10/2023 2:29 PM EDT - 10/10/2023 2:47 PM EDT Hospital Encounter [place] [address] Diffuse large B-cell lymphoma of lymph nodes of multiple regions; Stem cell transplant candidate; Pre-op testing Discharge Disposition: Home 10/10/2023 2:14 PM EDT - 10/10/2023 2:28 PM EDT Hospital Encounter XRay at [address] [place] [address] Micha Givens Jr., MD Diffuse large B-cell lymphoma of lymph nodes of multiple regions; Stem cell transplant candidate; Pre-op testing Discharge Disposition: Home 10/10/2023 1:04 PM EDT - 10/10/2023 2:13 PM EDT Hospital Encounter [place] [address] Discharge Disposition: Home 10/10/2023 Travel 10/10/2023 Orders Only Hematology Oncology at [address] [phone] Tania Rosales RN Diffuse large B-cell lymphoma of lymph nodes of multiple regions 10/04/2023 Telephone Hematology/Oncolog y at [address] [address] Colt Ardon RN Follow-up (Re constipation ) 10/03/2023 10:30 AM EDT Infusion Hematology Oncology at [address] [address] Diffuse large B-cell lymphoma of lymph nodes of multiple regions 10/03/2023 10:00 AM EDT Office Visit Hematology/Oncolog y at [address] [address] Adrianne Ramon MD Stearns, Diane M, COATING MACHINE OPERATOR HELPER Diffuse large B-cell lymphoma of lymph nodes of multiple regions 10/03/2023 Travel 09/28/2023 Telephone Hematology/Oncolog y at [address] [phone] Colt Ardon RN [facility] 09/26/2023 8:30 AM EDT Infusion Hematology Oncology at [address] [phone] Diffuse large B-cell lymphoma of lymph nodes of multiple regions 09/26/2023 Unscheduled Encounter Hematology/Oncolog y at [address] [phone] Nimisha Hael, KVNG Diffuse large B-cell lymphoma of lymph nodes of multiple regions 09/26/2023 Notes Only Hematology and Oncology at [place] [phone] Yael Merlos, COATING MACHINE OPERATOR HELPER Hyperglycemia 09/26/2023 Travel 09/25/2023 10:00 AM EDT Telephone Hematology [place] [address] 09/25/2023 Orders Only [place] [address] Micha Givens Jr., MD Screening for colon cancer; Diffuse large B-cell lymphoma of lymph nodes of multiple regions; Stem cell transplant candidate; Pre-op testing 09/21/2023 10:51 AM EDT - 09/21/2023 11:59 PM EDT Hospital Encounter [place] [address] Diffuse large B-cell lymphoma of lymph nodes of multiple regions; Stem cell transplant candidate; Pre-op testing; Prostate cancer screening; Iron deficiency anemia, unspecified iron deficiency anemia type Discharge Disposition: Home 09/21/2023 10:30 AM EDT Clinical Support [place]ematology [place] [address] Danii Her, RN Diffuse large B-cell lymphoma of lymph nodes of multiple regions 09/21/2023 9:30 AM EDT Office Visit [place]ematology [place] [phone] Micha Givens Jr., MD Diffuse large B-cell lymphoma of lymph nodes of multiple regions; Iron deficiency anemia, unspecified iron deficiency anemia type; Non-Hodgkin lymphoma of lymph nodes of multiple regions, unspecified non-Hodgkin lymphoma type 09/21/2023 Orders Only Hemat[place] [phone] Micha Givens Jr., MD Diffuse large B-cell lymphoma of lymph nodes of multiple regions; Stem cell transplant candidate; Pre-op testing; At high risk for bleeding; Prostate cancer screening; Iron deficiency anemia, unspecified iron deficiency anemia type 09/21/2023 Travel 09/20/2023 Orders Only [place] [phone] Micha Givens Jr., MD Diffuse large B-cell lymphoma of lymph nodes of multiple regions 09/19/2023 8:00 AM EDT Infusion Hematology Oncology at [address] [phone] Diffuse large B-cell lymphoma of lymph nodes of multiple regions 09/19/2023 Telephone Hematology/Oncolog y at [address] [phone] Polly Orellana RN Other (Prednisone taper ) 09/19/2023 Orders Only H[place] [phone] Adrianne Ramon MD 09/19/2023 Orders Only H[place]ology [place] [phone] Yael Merlos, COATING MACHINE OPERATOR HELPER Diffuse large B-cell lymphoma of lymph nodes of multiple regions 09/19/2023 Telephone Hematology/Oncolog y at [address] [phone] Polly Orellana, OSCAR Follow-up (Possible free drug thru [facility]) 09/19/2023 Notes Only Hematology/Oncolog y at [address] [phone] Shelley Cason, FRANCISCO J 09/19/2023 Travel 09/14/2023 Telephone Hematology/Oncolog y at [address] [phone] Brenda Priest RN 09/13/2023 Telephone Hematology/Oncolog y at [address] [phone] Colt Ardon RN Other (Financial paperwork ) 09/12/2023 10:15 AM EDT Office Visit Hematology/Oncolog y at [address] [phone] Adrianne Ramon MD Stearns, Diane M, COATING MACHINE OPERATOR HELPER Diffuse large B-cell lymphoma of lymph nodes of multiple regions; High risk medication use 09/12/2023 Telephone Hematology/Oncolog y at [address] [phone] Polly Orellana, OSCAR New Medication Request (revlimid) 09/12/2023 Telephone Hematology/Oncolog y at [address] [phone] Adrianne Ramon MD 09/12/2023 Travel 09/06/2023 1:00 PM EDT - 09/06/2023 11:59 PM EDT Hospital Encounter [place] [address] Adrianne Ramon MD Discharge Disposition: Home 09/06/2023 12:59 PM EDT Hospital Encounter [place] [address] Adrianne Ramon MD Diffuse large B-cell lymphoma of lymph nodes of multiple regions; Skin nodule Discharge Disposition: Home 09/06/2023 10:15 AM EDT - 09/06/2023 12:58 PM EDT Hospital [place] [phone] Adrianne Ramon MD Diffuse large B-cell lymphoma of lymph nodes of multiple regions; Skin nodule Discharge Disposition: Home 09/06/2023 9:48 AM EDT - 09/06/2023 10:14 AM EDT Hospital Encounter H[place]ology [place] [address] Diffuse large B-cell lymphoma of lymph nodes of multiple regions; Skin nodule Discharge Disposition: Home 09/06/2023 Travel 08/22/2023 12:30 PM EDT Office Visit Hematology/Oncolog y at [address] [phone] Adrianne Ramon MD Stearns, Diane M, COATING MACHINE OPERATOR HELPER Diffuse large B-cell lymphoma of lymph nodes [...] AM EDT Office Visit Hematology/Oncology at [address] [phone] Adrianne Ramon MD [facility] DR HEMATOLOGY [place] [address] Yael Merlos APRN [facility] HEMATOLOGY [place] [address] 11/21/2023 10:00 AM EDT Infusion Hematology Oncology at [address] [address] 11/23/2023 11:00 AM EDT Office Visit [place]ematology [place] [address] Reynold Proctor MD [facility] [place] [address] 11/23/2023 1:00 PM EDT Appointment Hematology [place] [phone] 11/23/2023 2:00 PM EDT Office Visit [place]ology [place] [phone] Micha Givens Jr., MD [facility] HEMATOLOGY [place] [address] 11/23/2023 3:30 PM EDT [place] [phone] Micha Givens Jr., MD [facility] HEMATOLOGY [place] [address] Health Maintenance Due Date Last Done Comments [...] Completed 10/17/2022 Medical Devices Explanted Type Area Project Portfolio Analyst Device Identifier Shelf Expiration Date Model / Serial / Lot Port Infusion 8fr Cath Power Injectable Lp 1lum Ct Ti [id number])-8/29 /2023 Implanted:Qty: 1 on 10/17/2022 by Gail Jha PA Explanted:Qty: 1 on 03/29/2023 by Chalo Crews PA IMPLANTS Right: Chest Wall [employer] - CR BARD 03/21/2024 [id number] / [id number] Procedures Procedure Name Priority Date/Time Associated Diagnosis [...] PFT FEV1/FVC Pre-BD Z-Score -2.14 COMPAS PFT MIU43-45 Actual Pre-BD 1.11 % COMPAS PFT JJB00-50 Predicted 2 % COMPAS PFT YNV31-33 Pre-BD % of Predicted 56 % COMPAS PFT GZI28-87 Pre-BD Z-Score -1.17 COMPAS PFT DLCO Hb [...] (Bezet) 390 ms MUSE SYSTEM Calculated P [place] 67 degrees MUSE SYSTEM Calculated R [place] 32 degrees MUSE SYSTEM INTERPRETATION Sinus bradycardia Nonspecific ST abnormality Abnormal ECG No previous ECGs available Confirmed by MD Valderrama David ([id number]) on 10/14/2023 10:09:54 PM MUSE SYSTEM 10/10/2023 2:40 PM EDT 10/14/2023 10:09 PM EDT Micha Givens Jr., MD ECG ORDERABLES MUSE SYSTEM * XR Chest PA & Lateral (Generic) (10/10/2023 2:21 PM EDT) WORKSTATION ID [id number] RAD Anatomical Region Laterality Modality Chest N/A [...] have questions please contact the health healthcare liaison that requested your imaging first. ? Electronically signed by: Davey Tolentino MD, [facility] ??([phone]), at 10/11/2023 11:50 AM Narrative 10/11/2023 11:50 [...] who have questions please contactthe health healthcare liaison that requested your imaging first. Electronically signed by: Davey Tolentino MD, [facility]([phone]), at 10/11/2023 11:50 AM Micha Givens Jr., MD IMG DX ORDERABLES * Blood Donor Serologic Testing (09/21/2023 11:14 AM EDT) Blood VENOUS BLOOD SPECIMEN / Unknown IP Care Team Draw / Unknown 09/21/2023 11:14 AM EDT 09/25/2023 4:30 PM EDT Micha Givens Jr., MD BLOOD BANK LAB ORDER DUONG [facility] [place] [address] * Type and Screen Validity (09/21/2023 11:14 AM EDT) Pathologist [facility] T&S only valid at [facility] LABORATORY Comment:This Type and Screen result is only valid at the [facility] Blood 09/21/2023 11:1 4 AM EDT 09/21/2023 11:31 AM EDT Narrative Resulting Agency Comment Spec In Lab Micha Givens Jr., MD BLOOD BANK LAB ORDER DUONG [facility] [place] [address] * Hemoglobin S Screen (09/21/2023 11:14 AM EDT) HGB S Screen Screen Negative Screen Negative [facility] Blood 09/21/2023 11:1 4 AM EDT 09/21/2023 11:30 AM EDT Narrative Resulting Agency Comment Spec In Lab Micha Givens Jr., MD HEMATOLOGY ORDERABLE S Performing Organization Address City/[facility]/ZIP Co de Phone Number [facility] [place] [address] * ABORH Recheck Status (09/21/2023 11:14 AM EDT) ABORH Recheck Order Order Placed [facility] ABORH Type Recheck not performed [facility] Blood 09/21/2023 11:1 4 AM EDT 09/21/2023 11:31 AM EDT Narrative Resulting Agency Comment Spec In Lab Micha iGvens Jr., MD BLOOD BANK LAB ORDER DUONG Performing Organization Address City/[facility]/ZIP Co de Phone Number [facility] [place] [address] * (ABNORMAL) CRP, acute inflammation (09/21/2023 11:14 AM EDT) C-Reactive Protein 52.8(H) <=4.9 mg/L [facility] Blood 09/21/2023 11:1 4 AM EDT 09/21/2023 11:30 AM EDT Narrative Resulting Agency Comment Spec In Lab Micha Givens Jr., MD CHEMISTRY ORDERABLES Performing Organization Address City/[facility]/ZIP Co de Phone Number [facility] [place] [address] * PSA Screen (09/21/2023 11:14 AM EDT) [...] Jr., MD CHEMISTRY ORDERABLES Performing Organization Address [facility] Co de Phone Number [facility] [place] [address] * Calcium, Ionized, Serum (09/21/2023 11:14 AM EDT) Ionized Calcium 1.25 1.15 - 1.33 mmol/L [facility] Comment: Note: Total bilirubin higher than 20 mg/dL may lead to falsely low ionized calcium. This test has not been cleared by the [place] FDA. Performance characteristics of this test were determined by [facility] in accordance with CLIA requirements. This laboratory is qualified under CLIA to perform high-complexity testing. Blood 09/21/2023 11:1 4 AM EDT 09/21/2023 11:30 AM EDT Narrative Resulting Agency Comment Spec In Lab Micha Givens Jr., MD CHEMISTRY ORDERABLES Performing Organization Address [facility] Co de Phone Number [facility] [place] [address] * (ABNORMAL) Hemogram (09/21/2023 11:14 AM EDT) [...] Cell Volume 91.4 82.9 - 93.1 fL [facility] Mean Cell Hemoglobin 29.3 27.5 - 32.1 pg [facility] Mean Cell Hemoglobin Concentration 32.0 32.0 - 35.7 g/dL [facility] Platelet 152 145 - 357 x10(3)/mc L [facility] RDW Standard Deviation 48.4(H) 36.0 - 45.0 fL [facility] RDW coefficient of variation 14.5(H) 11.4 - 13.8 % [facility] Mean Platelet Volume 11.5 7.6 - 12.9 fL [facility] NRBC% auto 0.0 % [facility] NRBC Absolute 0.000 0.000 - 0.000 x10(3)/mc L [facility] Blood 09/21/2023 11:1 4 AM EDT 09/21/2023 11:30 AM EDT Narrative Resulting Agency Comment Spec In Lab Micha Givens Jr., MD HEMATOLOGY ORDERABLE S Performing Organization Address City/State/[facility] Co de Phone Number [facility] [place] [address] * (ABNORMAL) Differential, Automated (09/21/2023 11:14 AM EDT) Only the most recent of2 resultswithin the time period is included. Neutrophil % 90.8 % [facility] Neutrophil Absolute 6.59(H) 1.70 - 6.10 x10(3)/mc L [facility] Lymph % 5.1 % [facility] Lymphocytes Abs 0.4(L) 0.9 - 3.2 x10(3)/mc L [facility] Monocyte % 3.0 % [facility] Monocyte Abs 0.2(L) 0.3 - 0.9 x10(3)/mc L [facility] Eos % 0.4 % [facility] Eosinophils Abs 0.0 0.0 - 0.4 x10(3)/ L [facility] Basophil % 0.1 % [facility] Baso Absolute 0.0 0.0 - [...] Absolute 0.04 0.00 - 0.04 x10(3)/ L [facility] Blood 09/21/2023 11:1 4 AM EDT 09/21/2023 11:30 AM EDT Narrative Resulting Agency Comment Spec In Lab Micha Givens Jr., MD HEMATOLOGY ORDERABLE S [facility] [place] [address] * HSV 1 and 2 IgG Antibodies (09/21/2023 11:14 AM EDT) Pathologist [facility] HSV Type 1 Ab, IgG Negative Negative [facility] HSV Type 2 Ab, IgG Negative Negative [facility] Blood 09/21/2023 11:1 4 AM EDT 09/21/2023 1:04 PM EDT Narrative Resulting Agency Comment Spec In Lab Micha Givens Jr., MD IMMUNOLOGY ORDERABLE S [facility] [place] [address] * (ABNORMAL) [place] Virus Antibodies (09/21/2023 11:14 AM EDT) EBV (VCA) IgG Ab Positive(A) Negative M BRISA [facility] EBV (VCA) IgM Ab Negative Negative MAR Y [facility] EBNA Antibodies Positive(A) Negative MA RY [facility] EBV Interpretation Past EBV infection. [...] MD IMMUNOLOGY ORDERABLE S Performing Organization Address City/[facility]/ZIP Co de Phone Number [facility] [place] [address] * CMV Antibody, IgM (09/21/2023 11:14 AM EDT) CMV IgM Negative Negative [facility] Blood 09/21/2023 11:1 4 AM EDT 09/21/2023 1:04 PM EDT Narrative Resulting Agency Comment Spec In Lab Micha Givens Jr., MD IMMUNOLOGY ORDERABLE S Performing Organization Address City/[facility]/ZIP Co de Phone Number [facility] [place] [address] * (ABNORMAL) Iron and TIBC (09/21/2023 11:14 [...] ORDERABLES [facility] [place] [address] * Toxoplasma Antibody, IgM (09/21/2023 11:14 AM EDT) Toxoplasma Antibody IgM Negative Negative [facility] Blood 09/21/2023 11:1 4 AM EDT 09/21/2023 1:04 PM EDT Narrative Resulting Agency Comment Spec In Lab Micha Givens Jr., MD IMMUNOLOGY ORDERABLE S Performing Organization Address City/[facility]/ZIP Co de Phone Number [facility] [place] [address] * Toxoplasma Antibody, IgG (09/21/2023 11:14 AM EDT) Toxoplasma Antibody IgG Negative Negative [facility] Blood 09/21/2023 11:1 4 AM EDT 09/21/2023 1:04 PM EDT Narrative Resulting Agency Comment Spec In Lab Micha Givens Jr., MD IMMUNOLOGY ORDERABLE S Performing Organization Address City/[facility]/ZIP Co de Phone Number [facility] [place] [address] * CMV Antibody, IgG (09/21/2023 11:14 AM EDT) CMV IgG Negative Negative [facility] Blood 09/21/2023 11:1 4 AM EDT 09/21/2023 1:04 PM EDT Narrative Resulting Agency Comment Spec In Lab Micha Givens Jr., MD IMMUNOLOGY ORDERABLE S [facility] [place] [address] * Type and screen ([facility]/MARCELINA) (09/21/2023 11:14 AM EDT) ABORH Type O NEGATIVE [facility] Patient BB History Not Found [facility] Expires at [id number] on: 09/24/2023 [facility] Ab Screen Interp Negative [facility] Blood 09/21/2023 11:1 4 AM EDT 09/21/2023 11:14 AM EDT Narrative [facility] - 09/21/2023 11:14 AM EDT This Type and Screen result is only valid at the [facility] Resulting Agency Comment Spec In Lab Micha Givens Jr., MD BLOOD BANK LAB ORDER DUONG [facility] [place] [address] * Direct antiglobulin test (09/21/2023 11:14 AM EDT) WILLIAN Poly Negative [facility] 09/21/2023 11:1 4 AM EDT 09/21/2023 11:14 AM EDT Micha Givens Jr., MD BLOOD BANK LAB ORDER DUONG Performing Organization Address City/[facility]/ZIP Co de Phone Number [facility] [place] [address] * Varicella zoster Antibody, IgG (09/21/2023 11:14 AM EDT) Varicella Zoster Antibody IgG Positive Positive [facility] Comment: A positive result for this assay is considered to be an indicator of positive immune status. Blood 09/21/2023 11:1 4 AM EDT 09/21/2023 1:04 PM EDT Narrative Resulting Agency Comment Spec In Lab Micha Givens Jr., MD IMMUNOLOGY ORDERABLE S [facility] [place] [address] * Uric acid (09/21/2023 11:14 AM EDT) Uric Acid 5.1 3.5 - 8.5 mg/dL [facility] Blood 09/21/2023 11:1 4 AM EDT 09/21/2023 11:30 AM EDT Narrative Resulting Agency Comment Spec In Lab Micha Givens Jr., MD CHEMISTRY ORDERABLES Performing Organization Address City/[facility]/ZIP Co de Phone Number [facility] [place] [address] * Phosphorus (09/21/2023 11:14 AM EDT) Phosphorus 2.9 2.5 - 4.5 mg/dL [facility] Blood 09/21/2023 11:1 4 AM EDT 09/21/2023 11:30 AM EDT Narrative Resulting Agency Comment Spec In Lab Micha Givens Jr., MD CHEMISTRY ORDERABLES Performing Organization Address City/[facility] Co de Phone Number [facility] [place] [address] * Magnesium (09/21/2023 11:14 AM EDT) Magnesium 0.80 0.69 - 1.07 mmol/L [facility] Blood 09/21/2023 11:1 4 AM EDT 09/21/2023 11:30 AM EDT Narrative Resulting Agency Comment Spec In Lab Micha Givens Jr., MD CHEMISTRY ORDERABLES Performing Organization Address City/[facility] Co de Phone Number [facility] [place] [address] * (ABNORMAL) Lactate Dehydrogenase (09/21/2023 11:14 AM EDT) Only the most recent of2 resultswithin the time period is included. Lactate Dehydrogenase 426(H) 110 - 220 unit/L [facility] Blood 09/21/2023 11:1 4 AM EDT 09/21/2023 11:30 AM EDT Narrative Resulting Agency Comment Spec In Lab Micha Givens Jr., MD CHEMISTRY ORDERABLES Performing Organization Address City/[facility]/ZIP Co de Phone Number [facility] [place] [address] * Ferritin (09/21/2023 11:14 AM EDT) Pathologist [facility] Ferritin 393 31 - 409 ng/mL [facility] Comment: Please note that as of 01/24/2023, the reference intervals for Ferritin have been updated. Blood 09/21/2023 11:1 4 AM EDT 09/21/2023 11:30 AM EDT Narrative Resulting Agency Comment Spec In Lab Micha Givens Jr., MD CHEMISTRY ORDERABLES Performing Organization Address [facility] Co de Phone Number [facility] [place] [address] * (ABNORMAL) Comprehensive metabolic panel (non-fasting) (09/21/2023 11:14 AM EDT) Only the most recent of3 resultswithin the time period is included. Glucose 326(H) 65 - 199 mg/dL [facility] [...] ORDERABLES [facility] [facility] [place] [address] * Urinalysis with reflex Culture (09/21/2023 11:11 [...] CENTER LABORATORY Leukocytes, Urine Dipstick Negative Negative [facility] Appearance, Urine Dipstick Clear Clear [facility] Specific [place] Urine Automated 1.009 1.005 - 1.030 [facility] Color, Urine Dipstick Yellow Yellow [facility] Reflex to Culture No [facility] Clean Catch Urine 09/21/2023 11:11 AM EDT 09/21/2023 11:33 AM EDT Narrative Resulting Agency Comment Spec In Lab Micha Givens Jr., MD URINE ORDERABLES [facility] [place] [address] * Scan Doc: Echo (09/17/2023 12:00 AM EDT) Anatomical Region Laterality Modality Cardiac Other Narrative 09/17/2023 12:00 AM EDT Ordered by an unspecified provider. Scanning Provider MEDIA MGR SCAN EXT O RDR/RSLT * NM PET CT Standard Plus Extremities and Head (09/06/2023 2:45 PM EDT) WORKSTATION ID [id number] RAD Anatomical Region Laterality Modality Positron Emissio [...] have questions please contact the health healthcare liaison that requested your imaging first. ? [...] unspecified. TECHNIQUE: Procedure: Following IV injection of 26-dscvco-2-deoxyglucose (FDG) a standard uptake of approximately 60 [...] unspecified. TECHNIQUE: Procedure: Following IV injection of 65-yovaai-7-deoxyglucose(FDG) a standard uptake of approximately 60 minutes, [...] who have questions please contactthe health healthcare liaison that requested your imaging first. Adrianne Ramon MD IMG PET ORDERABL ES * POCT Glucose (09/06/2023 1:06 PM EDT) Only the most recent of2 resultswithin the time period is included. Glucose, POC 98 65 - 199 mg/dL [facility] Comment: Supplemental ranges: <140 mg/dL before meals <180 mg/dL all other times of the day Blood 09/06/2023 1:06 PM EDT 09/06/2023 1:06 PM EDT Adrianne Ramon MD POINT OF CARE TE ST ORDERABLES [facility] [place] [address] * IR Biopsy Lymph Node (Chest/Abdomen/Pelvis) (09/06/2023 [...] period is included. Immunophenotyping Flow See Comment [facility] Comment: When completed by the Pathologist, the Flow Cytometry Report ([id number]) will display under the Pathology Results section within eDH. Other 09/06/2023 12:2 8 PM EDT 09/06/2023 12:47 PM EDT Narrative Resulting Agency Comment Spec In Lab Micha Pearl MD HEMATOLOGY ORDERABLE S [facility] [place] [id number] * Flow Cytometry Report (09/06/2023 12:28 PM EDT) Only the most recent of2 resultswithin the time period is included. Flow Cytometry Report [id number] ? Location: 3 The signing pathologist has (i) examined the relevant preparation(s) for the specimen(s) and (ii) rendered or confirmed the diagnosis(es). . ?Flow Cytometry DIAGNOSIS ? 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 See comment. Electronically signed by: ?Dana OCASIO, Filemon Verified: ??09/10/2023 15:05 ??Hematopathologist Performed at: ??-[facility] Dept. of Pathology, [place] [address] Director Report: Katherine Lopez MD, FCAP, ??CLIA Certificate: [id number] DISCUSSION The T-lymphocytes , B- lymphocytes and [...] by the Clinical Flow Cytometry Laboratory at [facility]. It has not been cleared or [...] high complexity clinical laboratory testing. SPECIMEN PROCESSING [id number] Cells for immunophenotypic analysis were derived from LEFT AUX LYMPH NODE. CD45 vs side scatter gating was utilized to identify a LYMPHOID analysis region that comprises approximately 95-97% of all cells. The following markers were assessed: CD2, CD3, CD4, CD5, CD7, CD8, CD10, CD19, CD20, CD23, CD38, CD45, CD56, FMC-7, kappa light chain, and lambda light chain. CLINICAL INFORMATION dlbcl [facility] 09/06/2023 12:2 8 PM EDT Micha Pearl MD PATHOLOGY/CYTOLOGY O RDERABLES [facility] [place] [address] * chromo report acquired (09/06/2023 11:35 AM EDT) Pathologist [facility] Cytogenetics Acquired Report Final Report ? [id number] Specimen Type: Fixed Tissue Specimen Condition: 1 [...] using dual-color, break-apart probes for MYC/8q24 rearrangement ([employer] shows 0% of 100 cells with [...] dual-color break-apart probes for BCL2/18q21 rearrangement ([employer] shows 0% of 100 cells with [...] its performance characteristics were determined by the [facility] ([facility] Cytogenetics Laboratory as required by The Clinical [...] the test? s accuracy and precision. The [facility] Cytogenetics Laboratory is certified under the CLIA? 88 as qualified to perform high complexity clinical laboratory testing. Chromosome alterations outside the regions complementary to these DNA FISH probes will not be detected. 09.20.23 (Electronic Signature) Verified By: Channing Ph.D., FAC, Tommy Loja Clinical Convolute Tube Winder/Mol ecular Orchard Sprayer [facility] 09/06/2023 11:3 5 AM EDT 09/11/2023 8:57 AM EDT James Champion DO HEMATOLOGY ORDERABLE S [facility] [place] [address] * (ABNORMAL) Surgical Pathology Report (09/06/2023 11:35 AM EDT) Surgical Pathology Report [id number] ? Location: [facility] The signing pathologist has (i) examined [...] Filemon Verified: ??09/10/2023 18:38 ??Hematopathologist Performed at: ??-[facility] Dept. of Pathology, [place] [address] Director Report: Katherine Lopez MD, AP, ??CLIA Certificate: [id number] SYNOPTIC THIS RESULT REQUIRES PHYSICIAN/A.P.P. FOLLOW UP [...] lymphoid neoplasms . Blood . 2016. 127 (20):1211-4634. Rafael CP et al . Blood 103:275-282 [...] submitted in 2 cassettes labeled B1-B2. ??CCP(A) [facility] 09/06/2023 11:3 5 AM EDT James Champion DO PATHOLOGY/CYTOLOGY O RDERABLES [facility] [place] [address] * Anaerobic Culture (09/06/2023 11:25 AM EDT) Anaerobic Culture No anaerobic organisms isolated [facility] Arm 09/06/2023 11:2 5 AM EDT 09/06/2023 12:21 PM EDT Comment:Left Arm Collection versus mass Narrative Resulting Agency Comment Spec In Lab James Champion DO MICROBIOLOGY - GENER AL ORDERABLES Performing Organization Address [facility] Co de Phone Number [facility] [place] [address] * AFB culture (09/06/2023 11:25 AM EDT) Acid Fast Bacilli Culture No Acid Fast Bacilli isolated [facility] Acid Fast Stain No Acid Fast Bacilli seen [facility] Other 09/06/2023 11:2 5 AM EDT 09/06/2023 12:21 PM EDT Comment:Left Arm Collection versus Mass Narrative Resulting Agency Comment Spec In Lab James Champion DO MICROBIOLOGY - GENER AL ORDERABLES Performing Organization Address [facility] Co de Phone Number [facility] [place] [address] * Calcofluor White Stain (09/06/2023 11:25 AM EDT) Calcofluor Stain Calcofluor White Preparation: Negative [facility] Other 09/06/2023 11:2 5 AM EDT 09/06/2023 12:21 PM EDT Comment:Left Arm Collection versus Mass Narrative Resulting Agency Comment Spec In Lab James Champion DO MICROBIOLOGY - GENER AL ORDERABLES Performing Organization Address City/[facility] Co de Phone Number [facility] [place] [address] * Tissue culture (09/06/2023 11:25 AM EDT) Tissue Culture No growth [facility] Gram Stain Few Neutrophils seen No microorganisms seen. [facility] Arm 09/06/2023 11:2 5 AM EDT 09/06/2023 12:21 PM EDT Comment:Left Arm Collection versus mass Narrative Resulting Agency Comment Spec In Lab James Champion DO MICROBIOLOGY - GENER AL ORDERABLES Performing Organization Address [facility] Co de Phone Number [facility] [place] [address] * Fungus culture (09/06/2023 11:25 AM EDT) Fungus Culture No Fungus isolated [facility] Other 09/06/2023 11:2 5 AM EDT 09/06/2023 12:21 PM EDT Comment:Left Arm Collection versus Mass Narrative Resulting Agency Comment Spec In Lab James Champion DO MICROBIOLOGY - GENER AL ORDERABLES Performing Organization Address [facility] de Phone Number [facility] [place] [address] * Specimen to Pathology (09/06/2023 11:20 AM EDT) Only the most recent of2 resultswithin the time period is included. AP Specimen 09/06/2023 11:2 0 AM EDT 09/06/2023 11:20 AM EDT Narrative [facility] - 09/06/2023 11:20 AM EDT Specimen requisition ordered. ??Separate Pathology report to follow James Champion DO PATHOLOGY/CYTOLOGY O RDLOGAN Performing Organization Address [facility] Co de Phone Number [facility] [place] [address] * Cytopathology Non-Gynecological (09/06/2023 10:41 AM EDT) AP Specimen 09/06/2023 10:4 1 AM EDT 09/06/2023 10:41 AM EDT Narrative [facility] - 09/06/2023 10:41 AM EDT Specimen requisition ordered. ??Separate Pathology report to follow Micha Pearl MD PATHOLOGY/CYTOLOGY O RDERABLES [facility] [place] [address] * Blood culture (09/06/2023 10:12 AM EDT) Blood Culture No growth at 5 days. [facility] Blood ANTECUBITAL REGION STRUCTURE / Unknown 09/06/2023 10:12 AM EDT 09/06/2023 10:31 AM EDT Comment:Peripheral culture Narrative Resulting Agency Comment Spec In Lab Adrianne Ramon MD MICROBIOLOGY - B LOOD ORDERABLES Performing Organization Address [facility] Co de Phone Number [facility] [place] [address] * CBC (with Diff) (08/22/2023) White Blood Cell 8.12 Hemoglobin 13.2 Hematocrit 38.4 Platelet 199 Neutrophil Absolute (ANC) - Automated 6.02 Blood 08/22/2023 Historical Provider HEMATOLOGY ORDERA BLES * Hepatitis C Antibody (10/17/2022 11:45 AM EDT) Pathologist [facility] Hepatitis C Antibody Negative Negative [facility] Blood 10/17/2022 11:4 5 AM EDT 10/17/2022 12:08 PM EDT Narrative Resulting Agency Comment Spec In Lab Adrianne Ramon MD CHEMISTRY ORDERA BLES Performing Organization Address City/[facility]/ZIP Co de Phone Number [facility] [place] [address] from Last 3 Months or Most Recently Relevant to Health Maintenance Advance Directives Documents on File Type Date Recorded Patient Sample Supervisor Expl anation POLST/COLST (Order for Life Sustaining [...] Status decision made by: Patient Care Teams Global Safety Officer Relationship Specialty Start Date End Date Frederick Meade MD [address] [place] [address] PCP - General Family Medicine 11/29/17
--- OUTSIDE RECORDS SUMMARY | 2023-11-16 18:58 | XMS_ITS | Encounter Summary ---
[place] [address] Care Team Providers Care News Reporter Name Role Phone Frederick Meade MD Primary Care Provider [phone] [phone] Encounter Details Date Type Department Care Team (Late st Contact Info) Description 11/05/2023 Orders Only Hematology [place] [address] Yael Merlos, DESKTOP TECHNICIAN [facility] HEMATOLOGY [place] [address] Social History Tobacco Use Types Packs/Day Years [...] AM EDT Office Visit Hematology/Oncology at [address] [address] Adrianne Ramon MD [facility] DR HEMATOLOGY [place] [address] Yael Merlos, KARLA [facility] DR HEMATOLOGY [place] [address] 11/21/2023 10:00 AM EDT Infusion Hematology Oncology at [address] [address] 11/23/2023 11:00 AM EDT Office Visit Hematology [place] [address] Reynold Proctor MD [facility] [place] [address] 11/23/2023 1:00 PM EDT Appointment Hematology [place] [address] 11/23/2023 2:00 PM EDT Office Visit Hematology [place] [address] Micha Givens Jr., MD [facility] DR HEMATOLOGY [place] [address] 11/23/2023 3:30 PM EDT Hospital [place] [address] Micha Givens Jr., MD [facility] DR HEMATOLOGY [place] [address] documented as of this encounter Visit Diagnoses Not on filedocumented in this encounter Care Teams News Reporter Relationship Specialty Start Date End Date Frederick Meade MD [address] [place] [address] PCP - General Family Medicine 11/29/17 documented as of this encounter
--- OUTSIDE RECORDS SUMMARY | 2023-11-16 18:58 | XMS_ITS | Encounter Summary ---
Author Organization [facility] [place] [address] Care Team Providers Care Working Manager Name Role Phone Frederick Meade MD Primary Care Provider [phone] [phone] Reason for Visit * Reason Onset Date Comments Constipation 09/28/2023 Encounter Details Date Type Department Care Team (Late st Contact Info) Description 09/28/2023 Telephone Hematology/Oncology at [address] [address] Colt Ardon RN Constipation Social [...] AM EDT Office Visit Hematology/Oncology at [address] [address] Adrianne Ramon MD [facility] DR HEMATOLOGY [place] [address] Yael Merlos APRN [facility] DR HEMATOLOGY [place] [address] 11/21/2023 10:00 AM EDT Infusion Hematology Oncology at [address] [phone] 11/23/2023 11:00 AM EDT Office Visit Hematology and Oncology at [address] Reynold Proctor MD [facility] [place] [address] 11/23/2023 1:00 PM EDT Appointment Hematology and Oncology at [place] [address] 11/23/2023 2:00 PM EDT Office Visit Hematology and Oncology at [address] Micha Givens Jr., MD [facility] HEMATOLOGY [place] [address] 11/23/2023 3:30 PM EDT Hospital [place] [address] Micha Givens Jr., MD [facility] HEMATOLOGY [place] [address] documented as of this encounter Visit Diagnoses Not on filedocumented in this encounter Care Teams Working Manager Relationship Specialty Start Date End Date Frederick Meade MD [address] [place] [address] PCP - General Family Medicine 11/29/17 documented as of this encounter
--- OUTSIDE RECORDS SUMMARY | 2023-11-16 18:58 | XMS_ITS | Encounter Summary ---
Author Organization [facility] [place] [address] Care Team Providers Care Recovery Analyst Name Role Phone Frederick Meade MD Primary Care Provider [phone] [phone] Encounter Details Date Type Department Care Team [...] AM EDT Office Visit Hematology/Oncology at [address] [address] Adrianne Ramon MD [facility] DR HEMATOLOGY [place] [address] Yael Merlos APRN [facility] DR HEMATOLOGY [place] [address] 11/21/2023 10:00 AM EDT Infusion Hematology Oncology at [address] [address] 11/23/2023 11:00 AM EDT Office Visit Hematology [place] [address] Reynold Proctor MD [facility] [place] [address] 11/23/2023 1:00 PM EDT Appointment Hematology [place] [phone] 11/23/2023 2:00 PM EDT Office Visit Hematology [place] [address] Micha Givens Jr., MD [facility] HEMATOLOGY [place] [address] 11/23/2023 3:30 PM EDT Hospital [place] [address] Micha Givens Jr., MD [facility] DR HEMATOLOGY [place] [address] documented as of this encounter Visit Diagnoses Not on filedocumented in this encounter Care Teams Recovery Analyst Relationship Specialty Start Date End Date Frederick Meade MD [address] [place] [address] [address] [place] [address] PCP - General Family Medicine 11/29/17 documented as of this encounter
--- OUTSIDE RECORDS SUMMARY | 2023-11-16 18:58 | XMS_ITS | Encounter Summary ---
Author Organization [facility] Address [facility] [place] [address] Care Team Providers Care Agents' Records Clerk Name Role Phone Frederick Meade MD Primary Care Provider [phone] [phone] Encounter Details Date Type Department Care Team (Late st Contact Info) Description 10/15/2023 Orders Only Hematology Oncology at [address] [address] Lucía Nelson, RN Diffuse large [...] AM EDT Office Visit Hematology/Oncology at [address] [address] Adrianne Ramon MD [facility] DR HEMATOLOGY [place] [address] Yael Merlos APRN [facility] DR HEMATOLOGY [place] [address] 11/21/2023 10:00 AM EDT Infusion Hematology Oncology at [address] [address] 11/23/2023 11:00 AM EDT Office Visit Hematology [place] [address] Reynold Proctor MD [facility] [place] [address] 11/23/2023 1:00 PM EDT Appointment Hematology [place] [address] 11/23/2023 2:00 PM EDT Office Visit Hematology [place] [address] Micha Givens Jr., MD [facility] DR HEMATOLOGY [place] [address] 11/23/2023 3:30 PM EDT Hospital [place] [address] Micha Givens Jr., MD [facility] DR HEMATOLOGY [place] [address] documented as of this encounter Visit Diagnoses Diagnosis Diffuse large B-cell lymphoma of lymph nodes of multiple regions documented in this encounter Care Teams Agents' Records Clerk Relationship Specialty Start Date End Date Frederick Meade MD [address] [place] [address] PCP - General Family Medicine 11/29/17 documented as of this encounter
--- OUTSIDE RECORDS SUMMARY | 2023-11-16 18:58 | XMS_ITS | Encounter Summary ---
Author Organization [facility] [place] [address] Care Team Providers Care Assistant Name Role Phone Frederick Meade MD Primary Care Provider +1 -[phone] Encounter Details Date Type Department Care Team [...] AM EDT Office Visit Hematology/Oncology at [address] [address] Adrianne Ramon MD [facility] [address] [place] [address] Yael Merlos APRN [facility] [address] [place] [address] 11/21/2023 10:00 AM EDT Infusion Hematology Oncology at [address] [address] 11/23/2023 11:00 AM EDT Office Visit Hematology [place] [address] Reynold Proctor MD [facility] [place] [address] 11/23/2023 1:00 PM EDT Appointment Hematology [place] [address] 11/23/2023 2:00 PM EDT Office Visit Hematology [place] [address] Micha Givens Jr., MD [facility] [place] [address] 11/23/2023 3:30 PM EDT Hospital [place] [address] Micha Gviens Jr., MD [facility] [address] [place] [address] documented as of this encounter Visit Diagnoses Not on filedocumented in this encounter Care Teams Assistant Relationship Specialty Start Date End Date Frederick Meade MD [address] [place] [address] [address] [place] [address] PCP - General Family Medicine 11/29/17 documented as of this encounter
--- OUTSIDE RECORDS SUMMARY | 2023-11-16 18:58 | XMS_ITS | Encounter Summary ---
Author Organization [facility] Address [facility] [place] [address] Care Team Providers Care Ultrasound Manager Name Role Phone Frederick Meade MD Primary Care Provider [phone] [phone] Encounter Details Date Type Department Care Team (Late st Contact Info) Description 10/11/2023 Notes Only Hematology/Oncology at [address] [address] Shelley Cason, [facility] OFFICE OF CARE MANAGEMENT Social History Tobacco [...] AM EDT Office Visit Hematology/Oncology at [address] [address] Adrianne Ramon MD [facility] HEMATOLOGY [place] [address] Yael Merlos, KARLA [facility] HEMATOLOGY AND [place] [address] 11/21/2023 10:00 AM EDT Infusion Hematology Oncology at [address] [address] 11/23/2023 11:00 AM EDT Office Visit Hematology [place] [address] Reynold Proctor MD [facility] [address] [place] [address] 11/23/2023 1:00 PM EDT Appointment Hematology and Oncology at [place] [address] 11/23/2023 2:00 PM EDT Office Visit Hematology and Oncology at [address] Micha Givens Jr., MD [facility] DR HEMATOLOGY AND [place] [address] 11/23/2023 3:30 PM EDT Hospital [place] [address] Micha Givens Jr., MD [facility] DR HEMATOLOGY AND [place] [address] documented as of this encounter Visit Diagnoses Not on filedocumented in this encounter Care Teams Ultrasound Manager Relationship Specialty Start Date End Date Frederick Meade MD [address] [place] [address] [address] [place] [address] PCP - General Family Medicine 11/29/17 documented as of this encounter
--- OUTSIDE RECORDS SUMMARY | 2023-11-16 18:58 | XMS_ITS | Encounter Summary ---
[place] [address] Care Team Providers Care Building Code Inspector Name Role Phone Frederick Meade MD Primary Care Provider [phone] [phone] Reason for Referral * Consultation (Routine) - Authorized Specialty Diagnoses / Procedures Referred By Paul bowen Referred To Contact Hematology and Oncology Diagnoses 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 Pre-op testing Micha Givens Jr., MD [facility] [address] [place] [address] [facility] [place] [address] [place] [address] Referral ID Status Reason Start Date Expiration Date Visits Requested Visits Authorized [id number] Authorized Consult, Test & Treat 10/12/2023 10/11/2024 1 1 * Diagnostic Test (Routine) - Authorized Specialty Diagnoses / Procedures Referred By Paul bowen Referred To Contact Radiology Diagnoses 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 Pre-op testing Procedures MRI Brain wwo Contrast (Generic) Micha Givens Jr., MD [facility] DR [place] [address] [facility] [place] [address] Referral ID Status Reason Start Date Expiration Date Visits Requested Visits Authorized [id number] Authorized Specialty Service Requested 10/12/2023 04/12/2025 1 1 Encounter Details Date Type Department Care Team (Late st Contact Info) Description 10/11/2023 Orders Only Hematology and Oncology at [facility] [place], [facility] [place] [address] Micha Givens Jr., MD [facility] DR [place] [address] Diffuse large B-cell lymphoma of lymph nodes [...] AM EDT Office Visit Hematology/Oncology at [address] [address] Adrianne Ramon MD [facility] DR [place] [address] Yael Merlos APRN [facility] [place] [address] 11/21/2023 10:00 AM EDT Infusion Hematology Oncology at [address] [phone] 11/23/2023 11:00 AM EDT Office Visit [place]ology [place] [address] Reynold Proctor MD [facility] [place] [address] 11/23/2023 1:00 PM EDT Appointment H[place]ology [place] [address] 11/23/2023 2:00 PM EDT Office Visit [place]ology [place] [address] Micha Givens Jr., MD [facility] [place] [address] 11/23/2023 3:30 PM EDT [place] [address] Micha Givens Jr., MD [facility] DR [place] [address] Scheduled Orders Name Type Priority Associated Diagnoses [...] thyroid documented in this encounter Care Teams Building Code Inspector Relationship Specialty Start Date End Date Frederick Meade MD [address] [place] [address] PCP - General Family Medicine 11/29/17 documented as of this encounter
--- OUTSIDE RECORDS SUMMARY | 2023-11-16 18:58 | XMS_ITS | Encounter Summary ---
Author Organization [facility] Address [facility] [place] [address] Care Team Providers Care Carton Inspector Name Role Phone Frederick Meade MD Primary Care Provider [phone] [phone] Reason for Visit * Reason Onset Date Comments Medication Refill 11/07/2023 revlimid Encounter Details Date Type Department Care Team (Late st Contact Info) Description 11/07/2023 Telephone Hematology/Oncology at [address] [address] Yael Merlos, [facility] [address] [place] [address] Medication Refill (revlimid) Social History Tobacco Use [...] Prescriber online survey done 09/12/23 with the [employer] Revlimid REMS Program Revlimid Auth # [id number] Pt Survey done on 09/12/23 Prescription to be manually faxed to [facility] [phone] phone [phone] after obtaining signature Adrianne Ramon MD Script [...] AM EDT Office Visit Hematology/Oncology at [address] [address] Adrianne Ramon MD [facility] HEMATOLOGY [place] [address] Yael Merlos, [facility] [address] HEMATOLOGY [place] [address] 11/21/2023 10:00 AM EDT Infusion Hematology Oncology at [address] [phone] 11/23/2023 11:00 AM EDT Office Visit Hematology and Oncology at [address] Reynold Proctor MD [facility] [place] [address] 11/23/2023 1:00 PM EDT Appointment Hematology and Oncology at [place] [address] 11/23/2023 2:00 PM EDT Office Visit Hematology and Oncology at [address] Micha Givens Jr., MD [facility] DR HEMATOLOGY [place] [address] 11/23/2023 3:30 PM EDT Hospital Encounter MRI at [place] [phone] Micha Givens Jr., MD [facility] HEMATOLOGY [place] [address] documented as of this encounter Visit Diagnoses Diagnosis Diffuse large B-cell lymphoma of lymph nodes of multiple regions documented in this encounter Care Teams Carton Inspector Relationship Specialty Start Date End Date Frederick Meade MD [address] [place] [address] PCP - General Family Medicine 11/29/17 documented as of this encounter
--- OUTSIDE RECORDS SUMMARY | 2023-11-16 18:58 | XMS_ITS | Encounter Summary ---
[place] [address] Care Team Providers Care Audio Installer Name Role Phone Frederick Meade MD Primary Care Provider [phone] [phone] Encounter Details Date Type Department Care Team (Latest Contact Info) Description 10/10/2023 2:29 PM EDT - 10/10/2023 2:47 PM EDT Hospital Encounter Non-Invasive [place] [phone] Diffuse large B-cell lymphoma of lymph nodes [...] TEST DAILY 4 03/11/2018 ONETOUCH ULTRASOFT LANCETS [facility] USE TO TEST DAILY 2 06/07/2018 colchicine [...] AM EDT Office Visit Hematology/Oncology at [address] [address] Adrianne Ramon MD [facility] HEMATOLOGY [place] [address] Yael Merlos APRN [facility] HEMATOLOGY [place] [address] 11/21/2023 10:00 AM EDT Infusion Hematology Oncology at [address] [address] 11/23/2023 11:00 AM EDT Office Visit Hematology and Oncology at [place] [phone] Reynold Proctor MD [facility] [place] [address] 11/23/2023 1:00 PM EDT Appointment Hematology [place] [address] 11/23/2023 2:00 PM EDT Office Visit Hematology and Oncology at [place] [phone] Micha Givens Jr., MD [facility] HEMATOLOGY [place] [address] 11/23/2023 3:30 PM EDT Hospital Encounter MRI at [place] [phone] Micha Givens Jr., MD [facility] HEMATOLOGY [place] [address] documented as of this encounter Procedures Procedure [...] (Bezet) 390 ms MUSE SYSTEM Calculated P [place] 67 degrees MUSE SYSTEM Calculated R [place] 32 degrees MUSE SYSTEM INTERPRETATION Sinus bradycardia Nonspecific ST abnormality Abnormal ECG No previous ECGs available Confirmed by MD Valderrama David ([id number]) on 10/14/2023 10:09:54 PM MUSE SYSTEM 10/10/2023 2:40 PM EDT 10/14/2023 10:09 PM EDT Micha Givens Jr., MD ECG ORDERABLES MUSE SYSTEM documented in this encounter Visit Diagnoses Diagnosis 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 Pre-op testing Preoperative examination, unspecified documented in this encounter Care Teams Audio Installer Relationship Specialty Start Date End Date Frederick Meade MD [address] [facility] [[email or web address] [address] [place] [address] PCP - General Family Medicine 11/29/17 documented as of this encounter
--- OUTSIDE RECORDS SUMMARY | 2023-11-16 18:58 | XMS_ITS | Encounter Summary ---
Author Organization [facility] Address [facility] [place] [address] Care Team Providers Care Stock Car Driver Name Role Phone Frederick Meade MD Primary Care Provider [phone] [phone] Reason for Visit * Reason Onset Date Comments Follow-up 10/04/2023 Re constipation Encounter Details Date Type Department Care Team (Late st Contact Info) Description 10/04/2023 Telephone Hematology/Oncology at [address] [address] Colt Ardon, RN Follow-up (Re [...] AM EDT Office Visit Hematology/Oncology at [address] [address] Adrianne Ramon MD [facility] HEMATOLOGY [place] [address] Yael Merlos, NETWORK OPERATIONS SPECIALIST [facility] [place] [address] 11/21/2023 10:00 AM EDT Infusion Hematology Oncology at [address] [address] 11/23/2023 11:00 AM EDT Office Visit Hematology [place] [address] Reynold Proctor MD [facility] [place] [address] 11/23/2023 1:00 PM EDT Appointment Hematology and Oncology at [place] [address] 11/23/2023 2:00 PM EDT Office Visit Hematology and Oncology at [address] Micha Givens Jr., MD [facility] DR [place] [address] 11/23/2023 3:30 PM EDT Hospital [place] [address] Micha Givens Jr., MD [facility] DR [place] [address] documented as of this encounter Visit Diagnoses Not on filedocumented in this encounter Care Teams Stock Car Driver Relationship Specialty Start Date End Date Frederick Meade MD [address] [place] [address] [address] [place] [address] PCP - General Family Medicine 11/29/17 documented as of this encounter
--- OUTSIDE RECORDS SUMMARY | 2023-11-16 18:58 | XMS_ITS | Encounter Summary ---
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 Hematology Clinic [facility] [place] [address] HEMATOLOGY PATIENT EVALUATION PROBLEM LIST: Patient Active [...] to consultation, he saw [facility] and when to [facility]. No beds so sent to [facility] for [address] CAP, MRI, [...] unclear cause. - last COLO at [facility] was 01/17/2012. INTERIM HISTORY OF PRESENT ILLNESS: Seen today for start of Revlimid and rituximab. Met with Dr. Givens 2 weeks ago to discuss CAR-T celltherapy. He is interested in pursuing this. Had an echocardiogram the end of August with ejection fraction of 60%. Called in earlier in the week with constipation. Appreciate pit crew support worker and recommendations. Cheo is here today for [...] and needle of cervical LN. FISH from [facility] No MYCrearrangement and no fusion of MYC [...] Enjoys reads, movies, race car, cards. Bowling [employer]. 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 Not a . ETOH: 1-3 beers per week Smoking: Quit 1985. Approximately 32-egye-zpyc history Vaping or electronic cigarettes: denies Chewing [...] is a delightful 73-year old male in [facility]. He [...] History Not Found T&S only valid at [facility] Hosp ABORH Recheck Order Order Placed ABORH [...] and BCL-2 protein (Double Expressor.) Flow cytometry ([id number]) supports this interpretation. FISH from [facility] No MYC rearrangement and no fusion of MYC and IGH was observed, CD3 (SP7, [employer]) Background T-cells CD20 (L26, [place]) diffusely positive in Neoplastic B-cells PAX-5 (1EW, [employer]) diffusely positive in Neoplastic B-cells CD10 (SP67, [place]) Negative BCL-6 (G/191E/A8, [place]) Positive MUM-1 (MUM1p, [employer]) Positive Myc (Y69, [employer]cam) Positive BCL-2 Oncoprotein (124, [place]) Positive Ki67 (MIB-1) (K2, [employer]) Greater than 95% of cells in cycle Cyclin D1(SP4-R, [place]) Negative SAPPHIRE JOSE (BEP0087-G, [employer]ica) Negative. DIAGNOSTICS: [facility] ECHO EF 60% 01/25/23 ECHO after C#5 EF 50-55% 11/28/22 ECHO after C#2 EF 52% 11/06/22 ECHO after C#1 [facility] EF = 52% Interpretation Summary LV systolic [...] left upper extremity ultrasound performed at [facility] Notable findings: In the left [...] undergo investigation with ultrasound. CT CAP at [facility], report and images have been requested. [...] at least 1 month spent locally at [facility] and local hospital. Unfortunately, because ofhis age, [...] concepts, and the time it entails at [facility]. This would be a significant commitment for the patient and his family as they live 2 [place] half hours away from [facility]. They feel comfortable that they have [...] patients were alive and relapse free. Finally [facility] September 19, 2016, Robb Hernandez et al, [...] at 50-55%. --asymptomatic --repeat echo at [facility] 1 year post completion of [...] AM EDT Office Visit Hematology/Oncology at [address] [address] Adrianne Ramon MD [facility] DR [place] [address] Yael Merlos APRN [facility] [place] [address] 11/21/2023 10:00 AM EDT Infusion Hematology Oncology at [address] [phone] 11/23/2023 11:00 AM EDT Office Visit Hematology [place] [address] Reynold Proctor MD [facility] [place] [address] 11/23/2023 1:00 PM EDT Appointment Hematology and Oncology at [place] [phone] 11/23/2023 2:00 PM EDT Office Visit Hematology and Oncology at [place] [phone] Micha Givens Jr., MD [facility] [place] [address] 11/23/2023 3:30 PM EDT Hospital Encounter MRI at [place] [phone] Micha Givens Jr., MD [facility] [place] [address] documented as of this encounter Procedures Procedure [...] regions documented in this encounter Care Teams Fieldwork Coordinator Relationship Specialty Start Date End Date Frederick Meade MD [address] [place] [address] PCP - General Family Medicine 11/29/17 documented as of this encounter
--- OUTSIDE RECORDS SUMMARY | 2023-11-16 18:58 | XMS_ITS ---
[place] [address] Care Team Providers Care Ship Self Defense System Mk1 Operator Name Role Phone Frederick Meade MD Primary Care Provider +1 -[phone] Active Problems Problem Noted Date Diagnosed Date Abnormal echocardiogram 11/20/2022 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 10/10/2022 Anemia, iron deficiency 08/21/2018 Gout 05/31/2017 Malignant neoplasm of prostate 09/01/2014 Current Oncology Plans [facility] (NHL) - riTUXimab (56 [...] Treatment Medications Discontinue Reason Plan Provider Cycles [facility] (HEMATOLOGI C MALIGNANCIE S) [...] treatments are documented for this patient in [facility]. Treatments may have been administered in [...] Potential late effects of treatment(s): Late and terminal press operator effects or radiation therapy to the prostate [...] Findings and based on age. Nutrition--Follow the [employer] Cancer Society Guidelines that include the following: [...] Helpful websites www. cancer. gov National Cancer [place] www.nccn.org National Comprehensive Cancer Network www.canceradvocacy.org National Coalition for Cancer Survivorship www.livestrong.org Livestrong Survivor Care www.acsn.org Cancer Survivors Network Anna Carr APRN- Radiation Oncology Adapted from Japanese Society of Clinical Oncology 2008 Cancer Treatment Plan Summary Survivorship care provider contacts SEWING MACHINE TESTER: Anna Carr
--- OUTSIDE RECORDS SUMMARY | 2023-11-16 18:58 | XMS_ITS | Encounter Summary ---
Author Organization [facility] [place] [address] Care Team Providers Care Change Management Administrator Name Role Phone Frederick Meade MD Primary Care Provider +1 -[phone] Encounter Details Date Type Department Care Team [...] AM EDT Office Visit Hematology/Oncology at [address] [address] Adrianne Ramon MD [facility] DR HEMATOLOGY [place] [address] Yael Merlos APRN [facility] DR HEMATOLOGY [place] [address] 11/21/2023 10:00 AM EDT Infusion Hematology Oncology at [address] [address] 11/23/2023 11:00 AM EDT Office Visit Hematology [place] [phone] Reynold Proctor MD [facility] [place] [address] 11/23/2023 1:00 PM EDT Appointment Hematology [place] [phone] 11/23/2023 2:00 PM EDT Office Visit Hematology [place] [phone] Micha Givens Jr., MD [facility] HEMATOLOGY [place] [address] 11/23/2023 3:30 PM EDT [place] [address] Micha Givens Jr., MD [facility] DR HEMATOLOGY [place] [address] documented as of this encounter Visit Diagnoses Not on filedocumented in this encounter Care Teams Change Management Administrator Relationship Specialty Start Date End Date Frederick Meade MD [address] [place] [address] [address] [place] [address] PCP - General Family Medicine 11/29/17 documented as of this encounter
--- OUTSIDE RECORDS SUMMARY | 2023-11-16 18:58 | XMS_ITS | Encounter Summary ---
Author Organization [facility] [place] [address] Care Team Providers Care Payroll Machine Operator Name Role Phone Frederick Meade MD Primary Care Provider +1 -[phone] Encounter Details Date Type Department Care Team (Late st Contact Info) Description 11/02/2023 Orders Only Hematology [place] [address] Micha Givens Jr., MD [facility] DR HEMATOLOGY [place] [address] Disorder of thyroid; Thyroid disorder screen; Blood [...] AM EDT Office Visit Hematology/Oncology at [address] [phone] Adrianne Ramon MD [facility] DR [place]EMAT[place] [address] Yael Merlos, KARLA [facility] [place]EMAT[place] [address] 11/21/2023 10:00 AM EDT Infusion Hematology Oncology at [address] [address] 11/23/2023 11:00 AM EDT Office Visit Hematology [place] [address] Reynold Proctor MD [facility] [place] [address] 11/23/2023 1:00 PM EDT Appointment Hematology [place] [address] 11/23/2023 2:00 PM EDT Office Visit Hematology [place] [address] Micha Givens Jr., MD [facility] DR HEMATOLOG[place] [address] 11/23/2023 3:30 PM EDT Hospital [place] [address] Micha Givens Jr., MD [facility] DR HEMATOLOG[place] [address] Scheduled Orders Name Type Priority Associated Diagnoses [...] bleeding documented in this encounter Care Teams Payroll Machine Operator Relationship Specialty Start Date End Date Frederick Meade MD [address] [place] [address] PCP - General Family Medicine 11/29/17 documented as of this encounter
--- OUTSIDE RECORDS SUMMARY | 2023-11-16 18:58 | XMS_ITS | Encounter Summary ---
Author Organization [facility] Address [facility] [place] [address] Care Team Providers Care Fur Blower Operator Name Role Phone Frederick Meade MD Primary Care Provider [phone] [phone] Encounter Details Date Type Department Care Team (Late st Contact Info) Description 10/22/2023 Orders Only Hematology [place] [address] Adrianne Ramon MD [facility] [address] [place] [address] Social History Tobacco Use Types Packs/Day Years [...] AM EDT Office Visit Hematology/Oncology at [address] [address] Adrianne Ramon MD [facility] DR [place] [address] Yael Merlos APRN [facility] [place] [address] 11/21/2023 10:00 AM EDT Infusion Hematology Oncology at [address] [address] 11/23/2023 11:00 AM EDT Office Visit Hematology [place] [phone] Reynold Proctor MD [facility] [place] [address] 11/23/2023 1:00 PM EDT Appointment Hematology [place] [address] 11/23/2023 2:00 PM EDT Office Visit Hematology [place] [address] Micha Givens Jr., MD [facility] DR [place] [address] 11/23/2023 3:30 PM EDT Hospital [place] [address] Micha Givens Jr., MD [facility] DR [place] [address] documented as of this encounter Visit Diagnoses Not on filedocumented in this encounter Care Teams Fur Blower Operator Relationship Specialty Start Date End Date Frederick Meade MD [address] [place] [address] PCP - General Family Medicine 11/29/17 documented as of this encounter
--- OUTSIDE RECORDS SUMMARY | 2023-11-16 18:58 | XMS_ITS | Encounter Summary ---
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 OBJECTIVE LAB DATA: completed today at [facility] adequate for treatment Pre [...] AM EDT Office Visit Hematology/Oncology at [address] [phone] Adrianne Ramon MD [facility] HEMATOLOGY [place] [address] Yael Merlos APRN [facility] HEMATOLOGY [place] [address] 11/21/2023 10:00 AM EDT Infusion Hematology Oncology at [address] [phone] 11/23/2023 11:00 AM EDT Office Visit Hematology and Oncology at [place] [phone] Reynold Proctor MD [facility] [place] [address] 11/23/2023 1:00 PM EDT Appointment Hematology and Oncology at [place] [phone] 11/23/2023 2:00 PM EDT Office Visit Hematology and Oncology at [place] [phone] Micha Givens Jr., MD [facility] HEMATOLOGY [place] [address] 11/23/2023 3:30 PM EDT Hospital Encounter MRI at [place] [phone] Micha Givens Jr., MD [facility] HEMATOLOGY [place] [address] documented as of this encounter Visit Diagnoses [...] mL/hr documented in this encounter Care Teams Hat Body Inspector Relationship Specialty Start Date End Date Frederick Meade MD [address] [place] [address] PCP - General Family Medicine 11/29/17 documented as of this encounter
--- OUTSIDE RECORDS SUMMARY | 2023-11-16 18:58 | XMS_ITS | Encounter Summary ---
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 [...] Office Visit Hematology/Oncology at [address] [phone] Adrianne Ramon MD [facility] [place] [address] Yael Merlos APRN [facility] [place] [address] 11/21/2023 10:00 AM EDT Infusion Hematology Oncology at [address] [address] 11/23/2023 11:00 AM EDT Office Visit Hematology [place] [address] Reynold Proctor MD [facility] [place] [address] 11/23/2023 1:00 PM EDT Appointment Hematology [place] [address] 11/23/2023 2:00 PM EDT Office Visit [place]ematology [place] [phone] Micha Givens Jr., MD [facility] [place] [address] 11/23/2023 3:30 PM EDT Hospital [place] [address] Micha Givens Jr., MD [facility] [place] [address] documented as of this encounter Visit Diagnoses Diagnosis 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
--- OUTSIDE RECORDS SUMMARY | 2023-11-16 18:58 | XMS_ITS | Encounter Summary ---
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 OBJECTIVE LAB DATA: completed today at [facility] adequate for treatment IV ACCESS: [...] AM EDT Office Visit Hematology/Oncology at [address] [address] Adrianne Ramon MD [facility] DR HEMATOLOGY [place] [address] Yael Merlos, GARDEN CONSULTANT [facility] DR HEMATOLOGY [place] [address] 11/21/2023 10:00 AM EDT Infusion Hematology Oncology at [address] [phone] 11/23/2023 11:00 AM EDT Office Visit [place]ematology [place] [address] Reynold Proctor MD [facility] [place] [address] 11/23/2023 1:00 PM EDT Appointment [place]ology [place] [address] 11/23/2023 2:00 PM EDT Office Visit [place]ology [place] [phone] Micha Givens Jr., MD [facility] HEMATOLOGY [place] [address] 11/23/2023 3:30 PM EDT [place] [address] Micha Givens Jr., MD [facility] HEMATOLOGY AND [place] [address] documented as of this encounter Visit Diagnoses [...] mg documented in this encounter Care Teams Major Sales Associate Relationship Specialty Start Date End Date Frederick Meade MD [address] [place] [address] PCP - General Family Medicine 11/29/17 documented as of this encounter
--- OUTSIDE RECORDS SUMMARY | 2023-11-16 18:58 | XMS_ITS | Encounter Summary ---
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 [...] Office Visit Hematology/Oncology at [address] [phone] Adrianne Ramon MD [facility] DR [place] [address] Yael Merlos, ROPE WALKER [facility] [place] [address] 11/21/2023 10:00 AM EDT Infusion Hematology Oncology at [address] [phone] 11/23/2023 11:00 AM EDT Office Visit Hematology [place] [address] Reynold Proctor MD [facility] [place] [address] 11/23/2023 1:00 PM EDT Appointment Hematology [place] [address] 11/23/2023 2:00 PM EDT Office Visit Hematology [place] [address] Micha Givens Jr., MD [facility] DR [place] [address] 11/23/2023 3:30 PM EDT Hospital [place] [address] Micha Givens Jr., MD [facility] [address] [place] [address] documented as of this encounter Visit Diagnoses Diagnosis 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
--- OUTSIDE RECORDS SUMMARY | 2023-11-16 18:58 | XMS_ITS | Encounter Summary ---
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 Hematology Clinic [facility] [place] [address] HEMATOLOGY PATIENT EVALUATION PROBLEM LIST: Patient Active [...] to consultation, he saw [facility] in [facility] and when to [facility]. No beds so sent to [facility] for [address] [...] x7 days with nice response. Pathology from [facility] reports large B-cell lymphoma. Double expresser. [...] earlier in the week with constipation. Appreciate registered dental assistant rda and recommendations. Cheo is here today he [...] and needle of cervical LN. FISH from [place] No MYCrearrangement and no fusion of MYC [...] only 1 biologic. Son Cheo Freire. Enjoys [employer], [employer], [employer] car, [employer]. [employer]. 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 Not a . ETOH: 1-3 beers per week Smoking: Quit 1985. Approximately [id number] history Vaping or electronic cigarettes: denies Chewing [...] is a delightful 73-year old male in [facility]. He [...] and BCL-2 protein (Double Expressor.) Flow cytometry ([id number]) supports this interpretation. FISH from [place] No MYC rearrangement and no fusion of MYC and IGH was observed, CD3 (SP7, Thermo Scientific) Background T-cells CD20 (L26, Crivitz) diffusely positive in Neoplastic B-cells PAX-5 (1EW, Leica) diffusely positive in Neoplastic B-cells CD10 (SP67, Crivitz) Negative BCL-6 (G/191E/A8, Crivitz) Positive MUM-1 (MUM1p, Dako) Positive Myc (Y69, Abcam) Positive BCL-2 Oncoprotein (124, Crivitz) Positive Ki67 (MIB-1) (K2, Leica) Greater than 95% of cells in cycle Cyclin D1(SP4-R, Crivitz) Negative SAPPHIRE JOSE ([id number], Leica) Negative. DIAGNOSTICS: [facility] ECHO EF 60% 01/25/23 ECHO after [...] undergo investigation with ultrasound. CT CAP at [facility], report and images have been requested. [...] at least 1 month spent locally at [facility] and local hospital. Unfortunately, because ofhis age, [...] concepts, and the time it entails at [facility]. This would be a significant commitment for the patient and his family as they live [place] hours away from [facility]. They feel comfortable that they have the [...] AM EDT Office Visit Hematology/Oncology at [address] [phone] Adrianne Ramon MD [facility] [place] [address] Yael Merlos APRN [facility] [place] [address] 11/21/2023 10:00 AM EDT Infusion Hematology Oncology at [address] [phone] 11/23/2023 11:00 AM EDT Office Visit Hematology and Oncology at [place] [phone] Reynold Proctor MD [facility] [place] [address] 11/23/2023 1:00 PM EDT Appointment Hematology [place] [phone] 11/23/2023 2:00 PM EDT Office Visit Hematology [place] [phone] Micha Givens Jr., MD [facility] [place] [address] 11/23/2023 3:30 PM EDT Hospital [place] [phone] Micha Givens Jr., MD [facility] [place] [address] documented as of this encounter Procedures Procedure [...] regions documented in this encounter Care Teams Fruit Bar Maker Relationship Specialty Start Date End Date Frederick Meade MD [address] [place] [address] PCP - General Family Medicine 11/29/17 documented as of this encounter
--- OUTSIDE RECORDS SUMMARY | 2023-11-16 18:59 | XMS_ITS | Encounter Summary ---
Author Organization [facility] [place] [address] Care Team Providers Care Councilperson Name Role Phone Frederick Meade MD Primary Care Provider [phone] Encounter Details Date Type Department Care Team (Latest Contact Info) Description 09/21/2023 10:51 AM EDT - 09/21/2023 11:59 PM EDT Hospital Encounter Hematology [place] [address] Diffuse large B-cell lymphoma of lymph nodes [...] TEST DAILY 4 03/11/2018 ONETOUCH ULTRASOFT LANCETS [facility] USE TO TEST DAILY 2 06/07/2018 colchicine [...] AM EDT Office Visit Hematology/Oncology at [address] [phone] Adrianne Ramon MD [facility] DR HEMATOLOGY [place] [address] Yael Merlos APRN [facility] DR HEMATOLOGY [place] [address] 11/21/2023 10:00 AM EDT Infusion Hematology Oncology at [address] [address] 11/23/2023 11:00 AM EDT Office Visit Hematology [place] [phone] Reynold Proctor MD [facility] [place] [address] 11/23/2023 1:00 PM EDT Appointment Hematology [place] [phone] 11/23/2023 2:00 PM EDT Office Visit Hematology [place] [phone] Micha Givens Jr., MD [facility] HEMATOLOGY [place] [address] 11/23/2023 3:30 PM EDT Hospital [place] [address] Micha Givens Jr., MD [facility] DR HEMATOLOGY [place] [address] Pending Results Name Type Priority Associated Diagnoses [...] nodes of multiple regions TYPE AND SCREEN ([facility]/CGP/MARCELINA) Routine 09/21/2023 11:14 AM EDT Diffuse large [...] MD BLOOD BANK LAB ORDER DUONG [facility] [place] [address] * Direct antiglobulin test (09/21/2023 11:14 AM EDT) [facility] WILLIAN Poly Negative [facility] 09/21/2023 11:1 4 AM EDT 09/21/2023 11:14 AM EDT Micha Givens Jr., MD BLOOD BANK LAB ORDER DUONG [facility] [place] [address] * Type and Screen Validity (09/21/2023 11:14 AM EDT) [facility] T&S only valid at [facility] LABORATORY Comment:This Type and Screen result is only valid at the [facility] Hospital Blood 09/21/2023 11:1 4 AM EDT 09/21/2023 11:31 AM EDT Narrative Resulting Agency Comment Spec In Lab Micha Givens Jr., MD BLOOD BANK LAB ORDER DUONG [facility] [place] [address] * ABORH Recheck Status (09/21/2023 11:14 AM EDT) Pathologist [facility] ABORH Recheck Order Order Placed [facility] ABORH Type Recheck not performed [facility] Blood 09/21/2023 11:1 4 AM EDT 09/21/2023 11:31 AM EDT Narrative Resulting Agency Comment Spec In Lab Micha Givens Jr., MD BLOOD BANK LAB ORDER DUONG [facility] [place] [address] * (ABNORMAL) Differential, Automated (09/21/2023 11:14 AM EDT) Neutrophil % 90.8 % [facility] Neutrophil Absolute 6.59(H) 1.70 - 6.10 x10(3)/mc L [facility] Lymph % 5.1 % [facility] Lymphocytes Abs 0.4(L) 0.9 - 3.2 x10(3)/mc L [facility] Monocyte % 3.0 % [facility] Monocyte Abs 0.2(L) 0.3 - 0.9 x10(3)/mc L [facility] Eos % 0.4 % [facility] Eosinophils Abs 0.0 0.0 - 0.4 x10(3)/mc L [facility] Basophil % 0.1 % [facility] Baso Absolute 0.0 0.0 - 0.1 x10(3)/mc L [facility] Immature Gran % 0.60 % [facility] Comment: Immature granulocytes(IG's)percentage and absolute count will include metamyelocytes, myelocytes, and promyelocytes. Blood smears from CBCs yielding IG's will be scanned manually for concordance. If this scan disagrees with the automated IG or if promyelocytes are noted, a manual differential will be performed. Immature Gran Absolute 0.04 0.00 - 0.04 x10(3)/mc L [facility] Blood 09/21/2023 11:1 4 AM EDT 09/21/2023 11:30 AM EDT Narrative Resulting Agency Comment Spec In Lab Micha Givens Jr., MD HEMATOLOGY ORDERABLE S [facility] [place] [address] * (ABNORMAL) Hemogram (09/21/2023 11:14 AM EDT) White Blood Cell 7.3 4.0 - 9.5 x10(3)/mc L [facility] Red Blood Cell 4.20(L) 4.58 - 5.54 x10(6)/mc L [facility] Hemoglobin 12.3(L) 13.7 - 16.5 g/dL [facility] Hematocrit 38.4(L) 40.5 - 48.5 % [facility] Mean Cell Volume 91.4 82.9 - 93.1 [facility] LABORATORY Mean Cell Hemoglobin 29.3 27.5 - 32.1 pg [facility] Mean Cell Hemoglobin Concentration 32.0 32.0 - 35.7 g/dL [facility] Platelet 152 145 - 357 x10(3)/mc L [facility] RDW Standard Deviation 48.4(H) 36.0 - 45.0 [facility] LABORATORY RDW coefficient of variation 14.5(H) 11.4 - 13.8 % [facility] Mean Platelet Volume 11.5 7.6 - 12.9 [facility] LABORATORY NRBC% auto 0.0 % [facility] NRBC Absolute 0.000 0.000 - 0.000 x10(3)/[facility] LABOR[facility]ORY Blood 09/21/2023 11:1 4 AM EDT 09/21/2023 11:30 AM EDT Narrative Resulting Agency Comment Spec In Lab Micha Givens Jr., MD HEMATOLOGY ORDERABLE S [facility] [place] [address] * Hemoglobin S Screen (09/21/2023 11:14 AM EDT) HGB S Screen Screen Negative Screen Negative [facility] Blood 09/21/2023 11:1 4 AM EDT 09/21/2023 11:30 AM EDT Narrative Resulting Agency Comment Spec In Lab Micha Givens Jr., MD HEMATOLOGY ORDERABLE S [facility] [place] [address] * Type and screen ([facility]/CGP/MARCELINA) (09/21/2023 11:14 AM EDT) ABORH Type O NEGATIVE [facility] Patient BB History Not Found [facility] Expires at [id number] on: 09/24/2023 [facility] Ab Screen Interp Negative [facility] Blood 09/21/2023 11:1 4 AM EDT 09/21/2023 11:14 AM EDT Narrative [facility] - 09/21/2023 11:14 AM EDT This Type and Screen result is only valid at the [facility] Hospital Resulting Agency Comment Spec In Lab Mihca Givens Jr., MD BLOOD BANK LAB ORDER DUONG [facility] [place] [address] * (ABNORMAL) Iron and TIBC (09/21/2023 11:14 AM EDT) Iron 39(L) 45 - 160 mcg/dL [facility] TIBC 255 250 - 450 mcg/dL [facility] Iron Saturation 15(L) 20 - 50 % [facility] Blood 09/21/2023 11:1 4 AM EDT 09/21/2023 11:30 AM EDT Narrative Resulting Agency Comment Spec In Lab Micha Givens Jr., MD CHEMISTRY ORDERABLES Performing Organization Address [facility] Co de Phone Number [facility] [address] * (ABNORMAL) CRP, acute inflammation (09/21/2023 11:14 AM EDT) C-Reactive Protein 52.8(H) <=4.9 mg/L [facility] Blood 09/21/2023 11:1 4 AM EDT 09/21/2023 11:30 AM EDT Narrative Resulting Agency Comment Spec In Lab Micha Givens Jr., MD CHEMISTRY ORDERABLES Performing Organization Address [facility] Co de Phone Number [facility] [place] [address] * Ferritin (09/21/2023 11:14 AM EDT) Ferritin 393 31 - 409 ng/mL [facility] Comment: Please note that as of 01/24/2023, the reference intervals for Ferritin have been updated. Blood 09/21/2023 11:1 4 AM EDT 09/21/2023 11:30 AM EDT Narrative Resulting Agency Comment Spec In Lab Micha Givens Jr., MD CHEMISTRY ORDERABLES Performing Organization Address [facility] Co de Phone Number [facility] [address] * Uric acid (09/21/2023 11:14 AM EDT) Uric Acid 5.1 3.5 - 8.5 mg/dL [facility] Blood 09/21/2023 11:1 4 AM EDT 09/21/2023 11:30 AM EDT Narrative Resulting Agency Comment Spec In Lab Micha Givens Jr., MD CHEMISTRY ORDERABLES Performing Organization Address [facility] Co de Phone Number [facility] [place] [address] * Calcium, Ionized, Serum (09/21/2023 11:14 AM EDT) Ionized Calcium 1.25 1.15 - 1.33 mmol/L [facility] Comment: Note: Total bilirubin higher than 20 mg/dL may lead to falsely low ionized calcium. This test has not been cleared by the [place] FDA. Performance characteristics of this test were determined by [facility] in accordance with CLIA requirements. This laboratory is qualified under CLIA to perform high-complexity testing. Blood 09/21/2023 11:1 4 AM EDT 09/21/2023 11:30 AM EDT Narrative Resulting Agency Comment Spec In Lab Micha Givens Jr., MD CHEMISTRY ORDERABLES Performing Organization Address [facility] Co de Phone Number [facility] [address] * Toxoplasma Antibody, IgM (09/21/2023 11:14 AM EDT) Toxoplasma Antibody IgM Negative Negative [facility] Blood 09/21/2023 11:1 4 AM EDT 09/21/2023 1:04 PM EDT Narrative Resulting Agency Comment Spec In Lab Micha Givens Jr., MD IMMUNOLOGY ORDERABLE S Performing Organization Address [facility] Co de Phone Number [facility] [address] * Toxoplasma Antibody, IgG (09/21/2023 11:14 AM EDT) Toxoplasma Antibody IgG Negative Negative [facility] Blood 09/21/2023 11:1 4 AM EDT 09/21/2023 1:04 PM EDT Narrative Resulting Agency Comment Spec In Lab Micha Givens Jr., MD IMMUNOLOGY ORDERABLE S Performing Organization Address [facility] de Phone Number [facility] [place] [address] * PSA Screen (09/21/2023 11:14 AM EDT) PSA Screen 0.03 0.00 - 4.00 ng/mL [facility] Comment: PLEASE NOTE: The above [...] Jr., MD CHEMISTRY ORDERABLES Performing Organization Address [facility] de Phone Number [facility] [place] [address] * Phosphorus (09/21/2023 11:14 AM EDT) Phosphorus 2.9 2.5 - 4.5 mg/dL [facility] Blood 09/21/2023 11:1 4 AM EDT 09/21/2023 11:30 AM EDT Narrative Resulting Agency Comment Spec In Lab Micha Givens Jr., MD CHEMISTRY ORDERABLES Performing Organization Address [facility] Co de Phone Number [facility] [address] * Magnesium (09/21/2023 11:14 AM EDT) Magnesium 0.80 0.69 - 1.07 mmol/L [facility] Blood 09/21/2023 11:1 4 AM EDT 09/21/2023 11:30 AM EDT Narrative Resulting Agency Comment Spec In Lab Micha Givens Jr., MD CHEMISTRY ORDERABLES Performing Organization Address City/[facility]/ZIP Co de Phone Number [facility] [place] [address] * Varicella zoster Antibody, IgG (09/21/2023 11:14 AM EDT) Varicella Zoster Antibody IgG Positive Positive [facility] Comment: A positive result for this assay is considered to be an indicator of positive immune status. Blood 09/21/2023 11:1 4 AM EDT 09/21/2023 1:04 PM EDT Narrative Resulting Agency Comment Spec In Lab Micha Givens Jr., MD IMMUNOLOGY ORDERABLE S Performing Organization Address City/[facility]/ZIP Co de Phone Number [facility] [address] * HSV 1 and 2 IgG Antibodies (09/21/2023 11:14 AM EDT) HSV Type 1 Ab, IgG Negative Negative [facility] HSV Type 2 Ab, IgG Negative Negative [facility] Blood 09/21/2023 11:1 4 AM EDT 09/21/2023 1:04 PM EDT Narrative Resulting Agency Comment Spec In Lab Micha Givens Jr., MD IMMUNOLOGY ORDERABLE S Performing Organization Address City/[facility]/ZIP Co de Phone Number [facility] [address] * (ABNORMAL) Alton-Dominguez Virus Antibodies (09/21/2023 11:14 AM EDT) EBV (VCA) IgG Ab Positive(A) Negative M BRISA [facility] EBV (VCA) IgM Ab Negative Negative MAR Y [facility] EBNA Antibodies Positive(A) Negative MA RY [facility] EBV Interpretation Past EBV infection. [facility] Comment: In most populations, at [...] MD IMMUNOLOGY ORDERABLE S Performing Organization Address [facility] Co de Phone Number [facility] [address] * CMV Antibody, IgM (09/21/2023 11:14 AM EDT) CMV IgM Negative Negative [facility] Blood 09/21/2023 11:1 4 AM EDT 09/21/2023 1:04 PM EDT Narrative Resulting Agency Comment Spec In Lab Micha Givens Jr., MD IMMUNOLOGY ORDERABLE S Performing Organization Address [facility] Co de Phone Number [facility] [address] * CMV Antibody, IgG (09/21/2023 11:14 AM EDT) CMV IgG Negative Negative [facility] Blood 09/21/2023 11:1 4 AM EDT 09/21/2023 1:04 PM EDT Narrative Resulting Agency Comment Spec In Lab Micha Givens Jr., MD IMMUNOLOGY ORDERABLE S Performing Organization Address [facility] Co de Phone Number [facility] [address] * (ABNORMAL) Lactate Dehydrogenase (09/21/2023 11:14 AM EDT) Lactate Dehydrogenase 426(H) 110 - 220 unit/L [facility] Blood 09/21/2023 11:1 4 AM EDT 09/21/2023 11:30 AM EDT Narrative Resulting Agency Comment Spec In Lab Micha Givens Jr., MD CHEMISTRY ORDERABLES [facility] [place] [address] * (ABNORMAL) Comprehensive metabolic panel (non-fasting) (09/21/2023 11:14 AM EDT) Glucose 326(H) 65 - 199 mg/dL [facility] Comment:Diabetes: >=200 mg/d L plus symptoms Blood Urea Nitrogen 26(H) 10 - 20 mg/dL [facility] Creatinine 1.16 0.80 - 1.50 mg/dL [facility] Sodium 138 135 - 145 mmol/L [facility] Potassium 4.0 3.5 - 5.0 mmol/L [facility] Comment: Please note: ??Patients with WBC >100,000 may have falsely elevated Potassium levels. ??For accurate Potassium quantification in these patients send serum separator tube (gold top) for subsequent determinations. ??Contact the Clinical Chemistry Laboratory if there are any questions. Chloride 103 98 - 107 mmol/L [facility] Carbon Dioxide 21(L) 22 - 31 mmol/L [facility] Anion Gap 14 5 - 15 mmol/L [facility] Calcium 9.5 8.5 - 10.5 mg/dL [facility] Protein, Total 6.3 6.1 - 8.0 g/dL [facility] Albumin 3.9 3.2 - 5.2 g/dL [facility] Aspartate Aminotransferase 54(H) 0 - 39 unit/L [facility] Alanine Aminotransferase 72(H) 0 - 55 unit/L [facility] Alkaline Phosphatase 202(H) 40 - 130 unit/L [facility] Bilirubin, Total 0.4 0.2 - 1.3 mg/dL [facility] Est Glomerular Filtration Rate 66 >=60 mL/min/1. 73 m?? [facility] [...] Micha Givens Jr., MD CHEMISTRY ORDERABLES [facility] [address] * Urinalysis with reflex Culture (09/21/2023 11:11 AM EDT) Glucose, Urine Dipstick Negative Negative mg/dL [facility] Protein, Urine Dipstick Negative Negative mg/dL [facility] Bilirubin, Urine Dipstick Negative Negative mg/dL [facility] Comment: Clinical correlation required for positive Urine Bilirubin results as false positive may occur with some drugs and drug related products. If a false positive is suspected a serum total bilirubin should be considered if clinically indicated. Urobilinogen, Urine Dipstick Normal Normal mg/dL [facility] pH, Urn (dipstick) 6.5 5.0 - 8.0 [facility] Blood, Urine Dipstick Negative Negative mg/dL [facility] Ketone, Urine Dipstick Negative Negative mg/dL [facility] Nitrite, Urine Dipstick Negative Negative [facility] Leukocytes, Urine Dipstick Negative Negative [facility] Appearance, Urine Dipstick Clear Clear [facility] Specific Childs Urine Automated 1.009 1.005 - 1.030 [facility] Color, Urine Dipstick Yellow Yellow [facility] Reflex to Culture No [facility] Clean Catch Urine 09/21/2023 11:11 AM EDT 09/21/2023 11:33 AM EDT Narrative Resulting Agency Comment Spec In Lab Micha Givens Jr., MD URINE ORDERABLES Performing Organization Address City/State/[facility] Co de Phone Number [facility] [address] documented in this encounter Visit Diagnoses Diagnosis 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 Pre-op testing Preoperative examination, unspecified Prostate cancer screening Special screening for malignant neoplasm of prostate Iron deficiency anemia, unspecified iron deficiency anemia type documented in this encounter Care Teams Councilperson Relationship Specialty Start Date End Date Frederick Meade MD [address] [place] [address] PCP - General Family Medicine 11/29/17 documented as of this encounter
--- OUTSIDE RECORDS SUMMARY | 2023-11-16 18:59 | XMS_ITS | Encounter Summary ---
Author Organization [facility] [place] [address] Care Team Providers Care Dollyman Name Role Phone Frederick Meade MD Primary Care Provider [phone] Encounter Details Date Type Department Care Team [...] AM EDT Office Visit Hematology/Oncology at [address] [address] Adrianne Ramon MD [facility] [place] [address] Yael Merlos APRN [facility] [place] [address] 11/21/2023 10:00 AM EDT Infusion Hematology Oncology at [address] [address] 11/23/2023 11:00 AM EDT Office Visit Hematology [place] [phone] Reynold Proctor MD [facility] [place] [address] 11/23/2023 1:00 PM EDT Appointment Hematology [place] [phone] 11/23/2023 2:00 PM EDT Office Visit Hematology [place] [phone] Micha Givens Jr., MD [facility] [place] [address] 11/23/2023 3:30 PM EDT Hospital En[place] [address] Micha Givens Jr., MD [facility] [place] [address] documented as of this encounter Visit Diagnoses Not on filedocumented in this encounter Care Teams Dollyman Relationship Specialty Start Date End Date Frederick Meade MD [address] [place] [address] [address] [place] [address] PCP - General Family Medicine 11/29/17 documented as of this encounter
--- OUTSIDE RECORDS SUMMARY | 2023-11-16 18:59 | XMS_ITS | Encounter Summary ---
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 Pre-op testing Micha Givens Jr., MD [facility] [address] [place] [address] [facility] [place] [address] Referral ID Status Reason Start Date Expiration Date Visits Requested Visits Authorized [id number] Authorized Continuity of Care 09/21/2023 09/20/2024 1 1 Encounter Details Date Type Department Care Team (Late st Contact Info) Description 09/25/2023 10:00 AM EDT Telephone Hematology [place] [phone] Elva Sutherland RD [facility] [place] [address] Social History Tobacco Use Types Packs/Day Years [...] Sutherland, RD - 09/25/2023 9:01 AM EDT [facility] BMT Pretransplant NutritionTeaching Pt: Cheo Freire [...] cheeses including brie, camembert, feta, cheatham's -- Cymro style soft cheeses including queso francisco, and queso fresco -- Slovak containing chili pepper or other uncooked vegetables [...] use well water include filtration, distillation, boiling --https://www.cdc.gov/healthywater/drinking/gnom-opdvt-kixawcfqm/household_water _treatment.html --ht tps://www.cdc.gov/healthywater/pdf/drinking/household_water_treatment.pdf --https://www.cdc.gov/healthywater/drinking/yloqpzau-ltxcl-ylq.html#how_bwa -Well water must be boiled for 1 [...] at future lab draw. Educational material provided: [facility]'s Food Safety Guidelines for the Patient with [...] AM EDT Office Visit Hematology/Oncology at [address] [phone] Adrianne Ramon MD [facility] [place] [address] Yael Merlos APRN [facility] [place] [address] 11/21/2023 10:00 AM EDT Infusion Hematology Oncology at [address] [phone] 11/23/2023 11:00 AM EDT Office Visit Hematology and Oncology at [place] [phone] Reynold Proctor MD [facility] [place] [address] 11/23/2023 1:00 PM EDT Appointment Hematology and Oncology at [place] [phone] 11/23/2023 2:00 PM EDT Office Visit Hematology and Oncology at [place] [phone] Micha Givens Jr., MD [facility] [place] [address] 11/23/2023 3:30 PM EDT Hospital Encounter MRI at [place] [phone] Micha Givens Jr., MD [facility] [place] [address] documented as of this encounter Visit Diagnoses Not on filedocumented in this encounter Care Teams Catalyst Operator Chief Relationship Specialty Start Date End Date Frederick Meade MD [address] [place] [address] PCP - General Family Medicine 11/29/17 documented as of this encounter
--- OUTSIDE RECORDS SUMMARY | 2023-11-16 18:59 | XMS_ITS | Encounter Summary ---
[place] [address] Care Team Providers Care Account Services Specialist Name Role Phone Frederick Meade MD Primary Care Provider [phone] Reason for Referral * Diagnostic Test (Routine) - Closed Specialty Diagnoses / Procedures Referred By Contac t Referred To Contact Cardiology Diagnoses Diffuse large B-cell lymphoma of lymph nodes of multiple regions High risk medication use Procedures Echocardiogram Transthoracic Adrianne Ramon MD [facility] [address] [place] [address] [facility] [address] [place] [address] Referral ID Status Reason Start Date Expiration Date V isits Requested Visits Authorized [id number] Closed Specialty Service Requested 09/12/2023 03/10/2024 1 1 * Consultation (Routine) - Closed Specialty Diagnoses / Procedures Referred By Contac t Referred To Contact Hematology and Oncology Diagnoses 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 of multiple regions Adrianne Ramon MD [facility] [address] [place] [address] [facility] [address] [place] [address] Referral ID Status Reason Start Date Expiration Date V isits Requested Visits Authorized [id number] Closed Specialty Service Requested 09/12/2023 09/11/2024 1 1 Encounter Details Date Type Department Care Team (Late st Contact Info) Description 09/12/2023 10:15 AM EDT Office Visit Hematology/Oncology at [address] [phone] Adrianne Ramon MD [facility] [place] [address] Yael Merlos APRN [facility] [place] [address] Diffuse large B-cell lymphoma of lymph nodes [...] original note were not included. Hematology Clinic [facility] [place] [address] HEMATOLOGY PATIENT EVALUATION PROBLEM LIST: Patient Active [...] to consultation, he saw [facility] in [facility] and when to [facility]. No beds so sent to [facility] for [address] CAP, [...] last COLO at [facility] was 01/17/2012. INTERIM HISTORY OF PRESENT [...] and needle of cervical LN. FISH from [facility] No MYCrearrangement and no fusion of MYC [...] only 1 biologic. Son Cheo Freire. Enjoys [employer], [employer], race car, cards. [employer]. 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 Not a . ETOH: 1-3 beers per week Smoking: Quit 1985. Approximately 61-scre-ivss history Vaping or electronic cigarettes: denies Chewing [...] is a delightful 73-year old male in [facility]. He is accompanied to the [...] and BCL-2 protein (Double [employer].) Flow cytometry ([id number]) supports this interpretation. FISH from [facility] No MYC rearrangement and no fusion of MYC and IGH was observed, CD3 (SP7, [employer]) Background T-cells CD20 (L26, [place]) diffusely positive in Neoplastic B-cells PAX-5 (1EW, [facility]) diffusely positive in Neoplastic B-cells CD10 (SP67, [place]) Negative BCL-6 (G/191E/A8, [place]) Positive MUM-1 (MUM1p, [facility]) Positive Myc (Y69, [employer]) Positive BCL-2 Oncoprotein (124, [place]) Positive Ki67 (MIB-1) (K2, [facility]) Greater than 95% of cells in cycle Cyclin D1(SP4-R, [place]) Negative SAPPHIRE JOSE ([id number]-F, [facility]) Negative. DIAGNOSTICS: 01/25/23 ECHO after C#5 [...] 08/22/2023 left upper extremity ultrasound performed at [facility] Notable findings: In the left antecubital [...] at least 1 month spent locally at [facility] and local hospital. Unfortunately, [...] concepts, and the time it entails at [facility]. This would be a significant commitment for the patient and his family as they live 2 [place] half hours away from [facility]. They feel comfortable that they have [...] applied for and distributed from the pharmaceutical [employer]. Side effects he might experience were explained to her and include fatigue, edema, dizziness, headache, pruritis, rash, GI upset including diarrhea, constipation, nausea, vomiting, myelosuppression, neut ropenic fever, infection, liver toxicity, neuropathy. Increased risk of DVT on lenalidomide and we discussed the need for full ASA 325mg daily prophylaxis. Recently there has a report of increase in arterial thrombosis (CVA/CA) as well. This risk is very small. [...] LVEF at 50-55%. --asymptomatic --repeat echo at [facility] 1 year post completion of therapy [...] from 09/06/23 biopsy Repeat ECHO when at [facility] for CAR-T cell discussion [...] AM EDT Office Visit Hematology/Oncology at [address] [phone] Adrianne Ramon MD [facility] [address] [place] [address] Yael Merlos APRN [facility] [address] [place] [address] 11/21/2023 10:00 AM EDT Infusion Hematology Oncology at [address] [phone] 11/23/2023 11:00 AM EDT Office Visit [place]ology [place] [address] Reynold Proctor MD [facility] [place] [address] 11/23/2023 1:00 PM EDT Appointment Hematology [place] [address] 11/23/2023 2:00 PM EDT Office Visit [place]ematology [place] [address] Micha Givens Jr., MD [facility] [place] [address] 11/23/2023 3:30 PM EDT [place] [address] Micha Givens Jr., MD [facility] [address] [place] [address] Scheduled Orders Name Type Priority Associated Diagnoses [...] medications documented in this encounter Care Teams Account Services Specialist Relationship Specialty Start Date End Date Frederick Meade MD [address] [place] [address] [address] [facility] [address] [place] [address] PCP - General Family Medicine 11/29/17 documented as of this encounter
--- OUTSIDE RECORDS SUMMARY | 2023-11-16 18:59 | XMS_ITS | Encounter Summary ---
Author Organization [facility] [place] [address] Care Team Providers Care Laundry Machine Operator Name Role Phone Frederick Meade MD Primary Care Provider [phone] Reason for Referral * Diagnostic Test (Routine) - Closed Specialty Diagnoses / Procedures Referred By Contac t Referred To Contact Radiology Diagnoses Diffuse large B-cell lymphoma of lymph nodes of multiple regions Skin nodule Procedures IR Biopsy Lymph Node (Chest/Abdomen/Pelvis) IR Biopsy Lymph Node (Head/Neck) Adrianne Ramon MD [facility] [address] [place] [address] [place] [address] Referral ID Status Reason Start Date Expiration Date V isits Requested Visits Authorized [id number] Closed Specialty Service Requested 08/22/2023 02/21/2025 1 1 Reason for Visit * Diagnostic Test (Routine) - Closed Specialty Diagnoses / Procedures Referred By Contac t Referred To Contact Radiology Diagnoses Diffuse large B-cell lymphoma of lymph nodes of multiple regions Skin nodule Procedures IR Biopsy Lymph Node (Chest/Abdomen/Pelvis) IR Biopsy Lymph Node (Head/Neck) Adrianne Ramon MD [facility] DR [place] [address] [facility] [place] [address] Referral ID Status Reason Start Date Expiration Date V isits Requested Visits Authorized [id number] Closed Specialty Service Requested 08/22/2023 02/21/2025 1 1 Encounter Details Date Type Department Care Team (Late st Contact Info) Description 09/06/2023 10:15 AM EDT - 09/06/2023 12:58 PM EDT Hospital Encounter [place] [address] Adrianne Ramon MD [facility] [address] [place] [address] Diffuse large B-cell lymphoma of [...] Caldwell RN - 09/06/2023 9:38 AM EDT [facility] Vascular and Interventional Radiology Lymph [...] is during regular office hours, please call [phone]. If it is after regular office hours, or on weekends or holidays, please call [phone] and ask to speak to the Improvement Coordinator painting contractor for Interventional Radiology. ---- documented in this [...] of : 1950 AGE: 73 y.o. Address: [address] [place] [address] [address] [facility] [address] Phone: [phone] (home) Mobile: Telephone Information: Referring Provider: Adrianne Ramon REASON FOR VISIT: Order Questions Answers Where will study be performed? [facility] Radiology [120] To be scheduled Ordering [...] Questions Answers Where will study be performed? [facility] Radiology [120] To be scheduled Ordering [...] IR Mediport Placement 10/17/2022 Gail Jha PA [facility] INTERVENTIONL RAD IR MEDIPORT REMOVAL 03/29/2023 IR Mediport Removal 03/29/2023 Ole Arvizu MD [facility] INTERVENTIONL RAD TONSILLECTOMY 1958 Social history [...] AM EDT Office Visit Hematology/Oncology at [address] [phone] Adrianne Ramon MD [facility] [address] [place] [address] Yael Merlos, TABLE FILLER [facility] [place] [address] 11/21/2023 10:00 AM EDT Infusion Hematology Oncology at [address] [phone] 11/23/2023 11:00 AM EDT Office Visit Hematology [place] [phone] Reynold Proctor MD [facility] [place] [address] 11/23/2023 1:00 PM EDT Appointment Hematology [place] [phone] 11/23/2023 2:00 PM EDT Office Visit Hematology [place] [phone] Micha Givens Jr., MD [facility] [place] [address] 11/23/2023 3:30 PM EDT Hospital [place] [address] Micha Givens Jr., MD [facility] [place] [address] documented as of this encounter Procedures Procedure [...] performed this procedure. ? Adrianne Ramon MD [facility] IR ORDERABLE S * Flow Cytometry Report (09/06/2023 12:28 PM EDT) Flow Cytometry Report [id number] ? Location: [facility] The signing pathologist has (i) examined the relevant preparation(s) for the specimen(s) and (ii) rendered or confirmed the diagnosis(es). . ?Flow Cytometry DIAGNOSIS ? 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 See comment. Electronically signed by: ?Dana OCASIO, Filemon Verified: ??09/10/2023 15:05 ??Hematopathologist Performed at: ??-[facility] Dept. of Pathology, [place] [address] Ore Bridge Operator: Katherine Lopez MD, FCAP, ??CLIA Certificate: [id number] DISCUSSION The T-lymphocytes , B- lymphocytes and [...] by the Clinical Flow Cytometry Laboratory at [facility]. It has not been cleared or [...] high complexity clinical laboratory testing. SPECIMEN PROCESSING [id number] Cells for immunophenotypic analysis were derived from [...] PATHOLOGY/CYTOLOGY O RDERABLES [facility] [place] [address] * Immunophenotyping Flow Cytometry (09/06/2023 12:28 PM EDT) Immunophenotyping Flow See Comment [facility] Comment: When completed by the Pathologist, the Flow Cytometry Report ([id number]) will display under the Pathology Results section within eDH. Other 09/06/2023 12:2 8 PM EDT 09/06/2023 12:47 PM EDT Narrative Resulting Agency Comment Spec In Lab Micha Pearl MD HEMATOLOGY ORDERABLE S [facility] [place] [id number] * Flow Cytometry Report (09/06/2023 11:40 AM EDT) Flow Cytometry Report [id number] ? Location: [facility] The signing pathologist has (i) examined the relevant preparation(s) for the specimen(s) and (ii) rendered or confirmed the diagnosis(es). . ?Flow Cytometry DIAGNOSIS Flow cytometric diagnosis: ?? No ??B-cell population or phenotypically abnormal T-cell population is detected. Electronically signed by: ?Dana OCASIO, Filemon Verified: ??09/07/2023 15:52 ??Hematopathologist Performed at: ??-[facility] Dept. of Pathology, [place] [address] Ore Bridge Operator: Katherine Lopez MD, FCAP, ??CLIA Certificate: [id number] DISCUSSION Blasts based on CD45 expression and [...] 5, 7). There is no increase in RC17-rejjzstv/CD3-n eg NK cells. Flow analysis is an ancillary study. A definite diagnosis requires correlation with the morphologic features of this process and if necessary, correlation with other ancillary studies like immunohistochemistr y, enzyme cytochemistry and/or cyto/ molecular genetics. This test was developed and its performance characteristics determined by the Clinical Flow Cytometry Laboratory at [facility]. It has not been cleared or [...] high complexity clinical laboratory testing. SPECIMEN PROCESSING [id number] Cells for immunophenotypic analysis were derived from left arm collection. CD45 vs side scatter gating was utilized to identify a lymphoid analysis region that comprises approximately 18-27% of all cells. The following markers were assessed: CD2, CD3, CD4, CD5, CD7, CD8, CD10, CD19, CD45, CD56, kappa light chain, and lambda light chain. CLINICAL INFORMATION [facility] LABORATORY 09/06/2023 11:4 0 AM EDT James Champion DO PATHOLOGY/CYTOLOGY O RDERABLES Performing Organization Address City/[facility]/[place] [address] * Immunophenotyping Flow Cytometry (09/06/2023 11:40 AM EDT) Immunophenotyping Flow See Comment [facility] Comment: When completed by the Pathologist, the Flow Cytometry Report ([id number]) will display under the Pathology Results section within eD. Other 09/06/2023 11:4 0 AM EDT 09/06/2023 12:11 PM EDT Narrative Resulting Agency Comment Spec In Lab James Champion DO HEMATOLOGY ORDERABLE S [facility] [place] [address] * chromo report acquired (09/06/2023 11:35 AM EDT) Cytogenetics Acquired Report Final Report ? [id number] Specimen Type: Fixed Tissue Specimen Condition: 1 [...] using dual-color, break-apart probes for BCL6/3q27 rearrangement ([employer] shows a signal pattern consistent with a BCL6 rearrangement in 0% of 100 cells. This is within the acceptable reference limits (0-7.4%). Thus, there is no evidence for BCL6/3q27 gene rearrangement. Interphase FISH analysis using dual-color, break-apart probes for MYC/8q24 rearrangement ([employer] shows 0% of 100 cells with a MYC rearrangement signal pattern. This is within acceptable reference limits (0-6.0%). Thus, there is no evidence for MYC/8q24 gene rearrangement. Interphase FISH analysis using dual-color, dual-fusion probes for MYC-IGH/t(8;14)(q2 4;q32) ([employer] shows 0% of 100 cells with [...] its performance characteristics were determined by the [facility] ([facility]) Cytogenetics Laboratory as required by The Clinical [...] the test? s accuracy and precision. The [facility] Cytogenetics Laboratory is certified under the CLIA? 88 as qualified to perform high complexity clinical laboratory testing. Chromosome alterations outside the regions complementary to these DNA FISH probes will not be detected. 09.20.23 (Electronic Signature) Verified By: Channing Ph.D., [facility], Tommy Loja Clinical Curriculum Advisory Teacher/Mol ecular Gusset Maker [facility] 09/06/2023 11:3 5 AM EDT 09/11/2023 8:57 AM EDT James Champion DO HEMATOLOGY ORDERABLE S [facility] [place] [id number] * (ABNORMAL) Surgical Pathology Report (09/06/2023 11:35 AM EDT) Surgical Pathology Report [id number] ? Location: [facility] The signing pathologist has (i) examined [...] Filemon Verified: ??09/10/2023 18:38 ??Hematopathologist Performed at: ??-[facility] Dept. of Pathology, [place] [address] Ore Bridge Operator: Katherine Lopez MD, FCAP, ??CLIA Certificate: [id number] SYNOPTIC THIS RESULT REQUIRES PHYSICIAN/A.P.P. FOLLOW UP [...] lymphoid neoplasms . Blood . 2016. 127 (20):2529-4495. Rafael CP et al . Blood 103:275-282 [...] PATHOLOGY/CYTOLOGY O RDERABLES [facility] [place] [address] * Anaerobic Culture (09/06/2023 11:25 AM EDT) Anaerobic Culture No anaerobic organisms isolated [facility] Arm 09/06/2023 11:2 5 AM EDT 09/06/2023 12:21 PM EDT Comment:Left Arm Collection versus mass Narrative Resulting Agency Comment Spec In Lab James Champion DO MICROBIOLOGY - GENER AL ORDERABLES Performing Organization Address [facility] Co de Phone Number [facility] [place] [address] * Tissue culture (09/06/2023 11:25 AM EDT) Tissue Culture No growth [facility] Gram Stain Few Neutrophils seen No microorganisms seen. [facility] Arm 09/06/2023 11:2 5 AM EDT 09/06/2023 12:21 PM EDT Comment:Left Arm Collection versus mass Narrative Resulting Agency Comment Spec In Lab James Champion DO MICROBIOLOGY - GENER AL ORDERABLES Performing Organization Address [facility] Co de Phone Number [facility] [place] [address] * Calcofluor White Stain (09/06/2023 11:25 AM EDT) Calcofluor Stain Calcofluor White Preparation: Negative [facility] Other 09/06/2023 11:2 5 AM EDT 09/06/2023 12:21 PM EDT Comment:Left Arm Collection versus Mass Narrative Resulting Agency Comment Spec In Lab James Champion DO MICROBIOLOGY - GENER AL ORDERABLES Performing Organization Address [facility] Co de Phone Number [facility] [place] [address] * Fungus culture (09/06/2023 11:25 AM EDT) Fungus Culture No Fungus isolated [facility] Other 09/06/2023 11:2 5 AM EDT 09/06/2023 12:21 PM EDT Comment:Left Arm Collection versus Mass Narrative Resulting Agency Comment Spec In Lab James Champion DO MICROBIOLOGY - GENER AL ORDERABLES Performing Organization Address City/[facility]/[place] [address] * AFB culture (09/06/2023 11:25 AM EDT) Acid Fast Bacilli Culture No Acid Fast Bacilli isolated [facility] Acid Fast Stain No Acid Fast Bacilli seen [facility] Other 09/06/2023 11:2 5 AM EDT 09/06/2023 12:21 PM EDT Comment:Left Arm Collection versus Mass Narrative Resulting Agency Comment Spec In Lab James Champion DO MICROBIOLOGY - GENER AL ORDERABLES Performing Organization Address [facility] [place] [address] * Specimen to Pathology (09/06/2023 11:20 AM EDT) AP Specimen 09/06/2023 11:2 0 AM EDT 09/06/2023 11:20 AM EDT Narrative [facility] - 09/06/2023 11:20 AM EDT Specimen requisition ordered. ??Separate Pathology report to follow James Champion DO PATHOLOGY/CYTOLOGY O RDERABLES Performing Organization Address City/[facility]/[place] [address] * Specimen to Pathology (09/06/2023 10:43 AM EDT) AP Specimen 09/06/2023 10:4 3 AM EDT 09/06/2023 10:43 AM EDT Narrative [facility] - 09/06/2023 10:43 AM EDT Specimen requisition ordered. ??Separate Pathology report to follow Micha Pearl MD PATHOLOGY/CYTOLOGY O RDERABLES Performing Organization Address City/[facility]/[place] [address] * Cytopathology Non-Gynecological (09/06/2023 10:41 AM EDT) AP Specimen 09/06/2023 10:4 1 AM EDT 09/06/2023 10:41 AM EDT Narrative [facility] - 09/06/2023 10:41 AM EDT Specimen requisition ordered. ??Separate Pathology report to follow Micha Pearl MD PATHOLOGY/CYTOLOGY O RDERABLES [facility] [place] [address] documented in this encounter Visit Diagnoses Diagnosis [...] mg documented in this encounter Care Teams Laundry Machine Operator Relationship Specialty Start Date End Date Frederick Meade MD [address] [place] [address] [place] [address] PCP - General Family Medicine 11/29/17 documented as of this encounter
--- OUTSIDE RECORDS SUMMARY | 2023-11-16 18:59 | XMS_ITS | Encounter Summary ---
Author Organization Count Includes [facility] [address] Care Team Providers Care Crisis Manager Name Role Phone Frederick Meade MD Primary Care Provider [phone] Encounter Details Date Type Department Care Team (Latest Contact Info) Description 09/06/2023 9:48 AM EDT - 09/06/2023 10:14 AM EDT Hospital Encounter Hematology [place] [address] Diffuse large B-cell lymphoma of lymph nodes [...] AM EDT Office Visit Hematology/Oncology at [address] [address] Adrianne Ramon MD [facility] H[place]ATOLOG[place] [address] Yael Merlos APRN [facility] DR HEMATOLOGY [place] [address] 11/21/2023 10:00 AM EDT Infusion Hematology Oncology at [address] [phone] 11/23/2023 11:00 AM EDT Office Visit Hematology [place] [address] Reynold Proctor MD [facility] [place] [address] 11/23/2023 1:00 PM EDT Appointment Hematology [place] [phone] 11/23/2023 2:00 PM EDT Office Visit Hematology [place] [address] Micha Givens Jr., MD [facility] H[place]ATOLOG[place] [address] 11/23/2023 3:30 PM EDT Hospital Encounter MRI at [place] [phone] Micha Givens Jr., MD [facility] [place]ATOLOG[place] [address] documented as of this encounter Procedures Procedure [...] 10:12 AM EDT) Neutrophil % 64.9 % [facility] Neutrophil Absolute 4.20 1.70 - 6.10 x10(3)/mc L [facility] Lymph % 14.1 % [facility] Lymphocytes Abs 0.9 0.9 - 3.2 x10(3)/mc L [facility] Monocyte % 16.7 % [facility] Monocyte Abs 1.1(H) 0.3 - 0.9 x10(3)/mc L [facility] Eos % 3.7 % [facility] Eosinophils Abs 0.2 0.0 - 0.4 x10(3)/mc L [facility] Basophil % 0.3 % [facility] Baso Absolute [...] HEMATOLOGY ORDER DUONG [facility] [place] [address] * (ABNORMAL) Hemogram (09/06/2023 10:12 AM EDT) White Blood Cell 6.5 4.0 - 9.5 x10(3)/[facility] Red Blood Cell 3.98(L) 4.58 - 5.54 x10(6)/[facility] Hemoglobin 12.0(L) 13.7 - 16.5 g/dL [facility] Hematocrit 36.5(L) 40.5 - 48.5 % [facility] Mean Cell Volume 91.7 82.9 - 93.1 [facility] Mean Cell Hemoglobin 30.2 27.5 - 32.1 pg [facility] Mean Cell Hemoglobin Concentration 32.9 32.0 - 35.7 g/dL [facility] Platelet 145 145 - 357 x10(3)/[facility] RDW Standard Deviation 48.4(H) 36.0 - 45.0 [facility] RDW coefficient of variation 14.4(H) 11.4 - 13.8 % [facility] Mean Platelet Volume 10.3 7.6 - 12.9 [facility] NRBC% auto 0.0 % [facility] NRBC Absolute 0.000 0.000 - 0.000 x10(3)/ L [facility] Blood 09/06/2023 10:1 2 AM EDT 09/06/2023 10:16 AM EDT Narrative Resulting Agency Comment Spec In Lab Adrianne Ramon MD HEMATOLOGY ORDER DUONG Performing Organization Address City/[facility]/ZIP Co de Phone Number [facility] [place] [address] * (ABNORMAL) Lactate Dehydrogenase (09/06/2023 10:12 AM EDT) Lactate Dehydrogenase 251(H) 110 - 220 unit/L [facility] Blood 09/06/2023 10:1 2 AM EDT 09/06/2023 10:16 AM EDT Narrative Resulting Agency Comment Spec In Lab Adrianne Ramon MD CHEMISTRY ORDERA BLES Performing Organization Address [facility] Co de Phone Number [facility] [place] [address] * (ABNORMAL) Comprehensive metabolic panel (non-fasting) (09/06/2023 [...] CHEMISTRY ORDERA BLES Performing Organization Address City/[facility]/ZIP Co de Phone Number [facility] [place] [address] * Blood culture (09/06/2023 10:12 AM EDT) Blood Culture No growth at 5 days. [facility] Blood ANTECUBITAL REGION STRUCTURE / Unknown 09/06/2023 10:12 AM EDT 09/06/2023 10:31 AM EDT Comment:Peripheral culture Narrative Resulting Agency Comment Spec In Lab Adrianne Ramon MD MICROBIOLOGY - B LOOD ORDERABLES [facility] [place] [address] documented in this encounter Visit Diagnoses Diagnosis Diffuse large B-cell lymphoma of lymph nodes of multiple regions Skin nodule Localized superficial swelling, mass, or lump documented in this encounter Care Teams Crisis Manager Relationship Specialty Start Date End Date Frederick Meade MD [address] [place] [address] PCP - General Family Medicine 11/29/17 documented as of this encounter
--- OUTSIDE RECORDS SUMMARY | 2023-11-16 18:59 | XMS_ITS | Encounter Summary ---
Author Organization [facility] Address [facility] [place] [address] Care Team Providers Care Cooler Servicer Name Role Phone Frederick Meade MD Primary Care Provider [phone] [phone] Encounter Details Date Type Department Care Team (Late st Contact Info) Description 09/12/2023 Telephone Hematology/Oncology at [address] [address] Adrianne Ramon MD [facility] DR HEMATOLOGY [place] [address] Social History Tobacco Use Types Packs/Day Years [...] AM EDT Office Visit Hematology/Oncology at [address] [phone] Adrianne Ramon MD [facility] DR HEMATOLOGY [place] [address] Yael Merlos APRN [facility] DR HEMATOLOGY [place] [address] 11/21/2023 10:00 AM EDT Infusion Hematology Oncology at [address] [address] 11/23/2023 11:00 AM EDT Office Visit Hematology [place] [address] Reynold Proctor MD [facility] [place] [address] 11/23/2023 1:00 PM EDT Appointment Hematology [place] [address] 11/23/2023 2:00 PM EDT Office Visit Hematology [place] [address] Micha Givens Jr., MD [facility] DR HEMATOLOGY [place] [address] 11/23/2023 3:30 PM EDT Hospital [place] [address] Micha Givens Jr., MD [facility] DR HEMATOLOGY [place] [address] documented as of this encounter Visit Diagnoses Diagnosis Diffuse large B-cell lymphoma of lymph nodes of multiple regions documented in this encounter Care Teams Cooler Servicer Relationship Specialty Start Date End Date Frederick Meade MD [address] [place] [address] PCP - General Family Medicine 11/29/17 documented as of this encounter
--- OUTSIDE RECORDS SUMMARY | 2023-11-16 18:59 | XMS_ITS | Encounter Summary ---
Author Organization [facility] Address [facility] [place] [address] Care Team Providers Care Crew Clerk Name Role Phone Frederick Meade MD Primary Care Provider [phone] [phone] Reason for Visit * Reason Onset Date Comments Other 09/19/2023 Prednisone taper Encounter Details Date Type Department Care Team (Late st Contact Info) Description 09/19/2023 Telephone Hematology/Oncology at [address] [address] Polly Orellana RN Other (Prednisone [...] AM EDT Office Visit Hematology/Oncology at [address] [address] Adrianne Ramon MD [facility] DR HEMATOLOGY [place] [address] Yael Merlos, KARLA [facility] HEMATOLOGY [place] [address] 11/21/2023 10:00 AM EDT Infusion Hematology Oncology at [address] [address] 11/23/2023 11:00 AM EDT Office Visit Hematology and Oncology at [place] [address] Reynold Proctor MD [facility] [place] [address] 11/23/2023 1:00 PM EDT Appointment Hematology and Oncology at [place] [address] 11/23/2023 2:00 PM EDT Office Visit Hematology and Oncology at [place] [address] Micha Givens Jr., MD [facility] [address] [place] [address] 11/23/2023 3:30 PM EDT Hospital Encounter MRI at [place] [phone] Micha Givens Jr., MD [facility] [address] [place] [address] documented as of this encounter Visit Diagnoses Not on filedocumented in this encounter Care Teams Crew Clerk Relationship Specialty Start Date End Date Frederick Meade MD [address] [place] [address] PCP - General Family Medicine 11/29/17 documented as of this encounter
--- OUTSIDE RECORDS SUMMARY | 2023-11-16 18:59 | XMS_ITS | Encounter Summary ---
Author Organization [facility] Address [facility] [place] [address] Care Team Providers Care Ore Bridge Operator Name Role Phone Frederick Meade MD Primary Care Provider [phone] [phone] Encounter Details Date Type Department Care Team (Late st Contact Info) Description 09/19/2023 Orders Only Hematology [place] [address] Adrianne Ramon MD [facility] DR [place] [address] Social History Tobacco Use Types Packs/Day Years [...] AM EDT Office Visit Hematology/Oncology at [address] [address] Adrianne Ramon MD [facility] [place] [address] Yael Merlos APRN [facility] [place] [address] 11/21/2023 10:00 AM EDT Infusion Hematology Oncology at [address] [address] 11/23/2023 11:00 AM EDT Office Visit Hematology [place] [address] Reynold Proctor MD [facility] [place] [address] 11/23/2023 1:00 PM EDT Appointment Hematology and Oncology at [place] [phone] 11/23/2023 2:00 PM EDT Office Visit Hematology and Oncology at [place] [phone] Micha Givens Jr., MD [facility] DR [place] [address] 11/23/2023 3:30 PM EDT Hospital Encounter MRI at [place] [phone] Micha Givens Jr., MD [facility] DR [place] [address] documented as of this encounter Visit Diagnoses Not on filedocumented in this encounter Care Teams Ore Bridge Operator Relationship Specialty Start Date End Date Frederick Meade MD [address] [facility] [place] [address] PCP - General Family Medicine 11/29/17 documented as of this encounter
--- OUTSIDE RECORDS SUMMARY | 2023-11-16 18:59 | XMS_ITS | Encounter Summary ---
Author Organization [facility] [place] [address] Care Team Providers Care Convertible Sofa Bedspring Tester Name Role Phone Frederick Meade MD Primary Care Provider +1 [phone] Encounter Details Date Type Department Care Team (Late st Contact Info) Description 09/20/2023 Orders Only Hematology [place] [address] Micha Givens Jr., MD [facility] DR HEMATOLOGY [place] [address] Diffuse large B-cell lymphoma of lymph nodes [...] AM EDT Office Visit Hematology/Oncology at [address] [address] Adrianne Ramon MD [facility] DR HEMATOLOGY [place] [address] Yael Merlos, EMBOSSING TOOL SETTER [facility] DR HEMATOLOGY [place] [address] 11/21/2023 10:00 AM EDT Infusion Hematology Oncology at [address] [address] 11/23/2023 11:00 AM EDT Office Visit Hematology [place] [address] Reynold Proctor MD [facility] [place] [place] [address] 11/23/2023 1:00 PM EDT Appointment Hematology [place] [address] 11/23/2023 2:00 PM EDT Office Visit Hematology [place] [address] Micha Givens Jr., MD [facility] DR HEMATOLOGY [place] [address] 11/23/2023 3:30 PM EDT Hospital [place] [address] Micha Givens Jr., MD [facility] DR HEMATOLOGY [place] [address] documented as of this encounter Results * (ABNORMAL) Lactate Dehydrogenase (09/21/2023 11:14 AM EDT) [facility] Lactate Dehydrogenase 426(H) 110 - 220 unit/L [facility] Blood 09/21/2023 11:1 4 AM EDT 09/21/2023 11:30 AM EDT Narrative Resulting Agency Comment Spec In Lab Micha Givens Jr., MD CHEMISTRY ORDERABLES [facility] [place] [address] * (ABNORMAL) Comprehensive metabolic panel (non-fasting) (09/21/2023 11:14 AM EDT) [facility] Glucose 326(H) 65 - 199 mg/dL [facility] Comment:Diabetes: >=200 mg/d L plus symptoms Blood Urea Nitrogen 26(H) 10 - 20 mg/dL [facility] Creatinine 1.16 0.80 - 1.50 mg/dL [facility] Sodium 138 135 - 145 mmol/L [facility] Potassium 4.0 3.5 - 5.0 mmol/L [facility] Comment: Please note: ??Patients with WBC >100,000 may have falsely elevated Potassium levels. ??For accurate Potassium quantification in these patients send serum separator tube (gold top) for subsequent determinations. ??Contact the Clinical Chemistry Laboratory if there are any questions. Chloride 103 98 - 107 mmol/L [facility] Carbon Dioxide 21(L) 22 - 31 mmol/L [facility] Anion Gap 14 5 - 15 mmol/L [facility] Calcium 9.5 8.5 - 10.5 mg/dL [facility] Protein, Total 6.3 6.1 - 8.0 g/dL [facility] Albumin 3.9 3.2 - 5.2 g/dL [facility] Aspartate Aminotransferase 54(H) 0 - 39 unit/L [facility] Alanine Aminotransferase 72(H) 0 - 55 unit/L [facility] Alkaline Phosphatase 202(H) 40 - 130 unit/L [facility] Bilirubin, Total 0.4 0.2 - 1.3 mg/dL [facility] Est Glomerular Filtration Rate 66 >=60 mL/min/1. 73 m?? 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
--- OUTSIDE RECORDS SUMMARY | 2023-11-16 18:59 | XMS_ITS | Encounter Summary ---
Author Organization [facility] [place] [address] Care Team Providers Care Environmental Protection Specialist Name Role Phone Frederick Meade MD Primary Care Provider +1 [phone] Encounter Details Date Type Department Care Team (Late st Contact Info) Description 09/19/2023 Orders Only Hematology [place] [address] Yael Merlos, TREATING AND PUMPING SUPERVISOR [facility] DR HEMATOLOGY [place] [address] Diffuse large B-cell lymphoma of lymph nodes [...] AM EDT Office Visit Hematology/Oncology at [address] [address] Adrianne Ramon MD [facility] DR HEMATOLOGY [place] [address] Yael Merlos, TREATING AND PUMPING SUPERVISOR [facility] DR HEMATOLOGY [place] [address] 11/21/2023 10:00 AM EDT Infusion Hematology Oncology at [address] [address] 11/23/2023 11:00 AM EDT Office Visit Hematology [place] [address] Reynold Proctor MD [facility] [place] [place] [address] 11/23/2023 1:00 PM EDT Appointment Hematology [place] [address] 11/23/2023 2:00 PM EDT Office Visit Hematology [place] [address] Micha Givens Jr., MD [facility] DR HEMATOLOGY [place] [address] 11/23/2023 3:30 PM EDT Hospital [place] [address] Micha Givens Jr., MD 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
--- OUTSIDE RECORDS SUMMARY | 2023-11-16 18:59 | XMS_ITS | Encounter Summary ---
Author Organization [facility] Address [facility] [place] [address] Care Team Providers Care Drafter Engineering Name Role Phone Frederick Meade MD Primary Care Provider [phone] Reason for Visit * Reason Onset Date Comments Follow-up 09/19/[address] obrien thru [facility] Encounter Details Date Type Department Care Team (Late st Contact Info) Description 09/19/2023 Telephone Hematology/Oncology at [address] [address] Polly Orellana, OSCAR Follow-up (Possible [...] - 09/19/2023 11:05 AM EDT Spoke with [facility] pt assistance foundation. Pt at present received revlimid with a copay of 157$ after getting $4000 thru [employer]. He is getting drug from [facility]. When next script is sent in if pt still has high copay and there is no funding we can call [facility] at [phone] fax [phone] and request assistance for pt again and they will resubmit the paper work they have on him for free drug. documented in this encounter Plan of Treatment Upcoming Encounters Date Type Department Care Team (Late st Contact Info) Description 11/21/2023 9:30 AM EDT Office Visit Hematology/Oncology at [address] [address] Adrianne Ramon MD [facility] DR HEMATOLOGY [place] [address] Yael Merlos APRN [facility] HEMATOLOGY [place] [address] 11/21/2023 10:00 AM EDT Infusion Hematology Oncology at [address] [address] 11/23/2023 11:00 AM EDT Office Visit Hematology [place] [address] Reynold Proctor MD [facility] [place] [address] 11/23/2023 1:00 PM EDT Appointment Hematology [place] [address] 11/23/2023 2:00 PM EDT Office Visit Hematology [place] [address] Micha Givens Jr., MD [facility] DR HEMATOLOGY [place] [address] 11/23/2023 3:30 PM EDT Hospital [place] [address] Micha Givens Jr., MD [facility] DR HEMATOLOGY [place] [address] documented as of this encounter Visit Diagnoses Not on filedocumented in this encounter Care Teams Drafter Engineering Relationship Specialty Start Date End Date Frederick Meade MD [address] [place] [address] [address] [place] [address] PCP - General Family Medicine 11/29/17 documented as of this encounter
--- OUTSIDE RECORDS SUMMARY | 2023-11-16 18:59 | XMS_ITS | Encounter Summary ---
Author Organization [facility] [place] [address] Care Team Providers Care Bilingual Branch Manager Name Role Phone Frederick Meade MD Primary Care Provider [phone] [phone] Encounter Details Date Type Department Care Team [...] AM EDT Office Visit Hematology/Oncology at [address] [address] Adrianne Ramon MD [facility] DR [place] [address] Yael Merlos APRN [facility] DR [place] [address] 11/21/2023 10:00 AM EDT Infusion Hematology Oncology at [address] [address] 11/23/2023 11:00 AM EDT Office Visit Hematology [place] [address] Reynold Proctor MD [facility] [place] [address] 11/23/2023 1:00 PM EDT Appointment Hematology [place] [address] 11/23/2023 2:00 PM EDT Office Visit Hematology [place] [address] Micha Givens Jr., MD [facility] [place] [address] 11/23/2023 3:30 PM EDT Hospital [place] [address] Micha Givens Jr., MD [facility] DR [place] [address] documented as of this encounter Visit Diagnoses Not on filedocumented in this encounter Care Teams Bilingual Branch Manager Relationship Specialty Start Date End Date Frederick Meade MD [address] [place] [address] [address] [place] [address] PCP - General Family Medicine 11/29/17 documented as of this encounter
--- OUTSIDE RECORDS SUMMARY | 2023-11-16 18:59 | XMS_ITS | Encounter Summary ---
Author Organization [facility] Address [facility] [place] [address] Care Team Providers Care Back Gray Cloth Washer Name Role Phone Frederick Meade MD Primary Care Provider [phone] [phone] Encounter Details Date Type Department Care Team (Late st Contact Info) Description 09/19/2023 Notes Only Hematology/Oncology at [address] [address] Shelley Cason, [facility] OFFICE OF CARE MANAGEMENT Social History Tobacco [...] are managing otherwise. Reminded them of the [facility] if they needs to apply for another tio. His is keeping that in mind if they have a need that comes up. Coping: Cheo and his were hit with the news that his disease is back. He is feeling anxious and concerns about starting treatment again. His tells others she is fine but is quite concerned and worried herself. Offered support. Cheo and his did not identify any specific needs today. ORDER SCHEDULE CLERK will follow for support and resources. Brief assessment Supportive Counseling Financial resources documented in this encounter Plan of Treatment Upcoming Encounters Date Type Department Care Team (Late st Contact Info) Description 11/21/2023 9:30 AM EDT Office Visit Hematology/Oncology at [address] [phone] Adrianne Ramon MD [facility] H[place]AT[place] [address] Yael Merlos APRN [facility] [place] [address] 11/21/2023 10:00 AM EDT Infusion Hematology Oncology at [address] [phone] 11/23/2023 11:00 AM EDT Office Visit Hematology and Oncology at [place] [phone] Reynold Proctor MD [facility] [place] [address] 11/23/2023 1:00 PM EDT Appointment Hematology and Oncology at [address] 11/23/2023 2:00 PM EDT Office Visit Hematology and Oncology at [place] [phone] Micha Givens Jr., MD [facility] [place] [address] 11/23/2023 3:30 PM EDT [place] [address] Micha Givens Jr., MD [facility] HEMATOLOGY [place] [address] documented as of this encounter Visit Diagnoses Not on filedocumented in this encounter Care Teams Back Gray Cloth Washer Relationship Specialty Start Date End Date Frederick Meade MD [address] [place] [address] PCP - General Family Medicine 11/29/17 documented as of this encounter
--- OUTSIDE RECORDS SUMMARY | 2023-11-16 18:59 | XMS_ITS | Encounter Summary ---
Author Organization [facility] Address [facility] [place] [address] Care Team Providers Care Early Childhood Associate Name Role Phone Frederick Meade MD Primary Care Provider +1 [phone] Reason for Visit * Reason Onset Date Comments New Medication Request 09/12/2023 revlimid Encounter Details Date Type Department Care Team (Late st Contact Info) Description 09/12/2023 Telephone Hematology/Oncology at [address] [address] Polly Orellana RN New Medication [...] Prescriber online survey done 09/12/23 with the [employer] Revlimid REMS Program Revlimid Auth # [id number] Pt Survey done on 09/12/23 Prescription to be manually faxed to [employer] [phone] phone [phone] after obtaining signature Adrianne Ramon MD Script [...] AM EDT Office Visit Hematology/Oncology at [address] [phone] Adrianne Ramon MD [facility] DR HEMATOLOGY AND ONCOLOGY [place], [place] [phone] Yael Merlos, KARLA [facility] DR [place] [address] 11/21/2023 10:00 AM EDT Infusion Hematology Oncology at [address] [address] 11/23/2023 11:00 AM EDT Office Visit Hematology and Oncology at [place] [phone] Reynold Proctor MD [facility] [place] [address] 11/23/2023 1:00 PM EDT Appointment Hematology and Oncology at [place] [phone] 11/23/2023 2:00 PM EDT Office Visit Hematology and Oncology at [place] [phone] Micha Givens Jr., MD [facility] DR HEMATOLOGY [place] [address] 11/23/2023 3:30 PM EDT Hospital Encounter MRI at [place] [phone] Micha Givens Jr., MD [facility] DR HEMATOLOGY [place] [address] documented as of this encounter Visit Diagnoses Not on filedocumented in this encounter Care Teams Early Childhood Associate Relationship Specialty Start Date End Date Frederick Meade MD [address] [place] [address] [address] [place] [address] PCP - General Family Medicine 11/29/17 documented as of this encounter
--- OUTSIDE RECORDS SUMMARY | 2023-11-16 18:59 | XMS_ITS | Encounter Summary ---
Author Organization [facility] [place] [address] Care Team Providers Care Lead Designer Name Role Phone Frederick Meade MD Primary Care Provider +1 -[phone] Encounter Details Date Type Department Care Team (Late st Contact Info) Description 09/14/2023 Telephone Hematology/Oncology at [address] [phone] Brenda Priest, RN Social History [...] 09/14/2023 3:11 PM EDT ADD:Sent email to [employer] they will contact [employer] to see what they can get for money for pt. They will update us. Received call from Donita Jimenez [facility] [employer] ([phone]) stating that they received the application for patient financial assistance for Revlimid. States that there is a Revlimid prescription claim in [facility] which is showing that the patient has met his OOP max. She suggests that we call [facility] and ask that they reverse the claim because patient hasn't received drug. This willallow them to see what his co-pay will be so that they can determine eligibility for financial assistance and free drug. RN call to [facility] spoke with pharmacy specialist who states that the claim was reversed on their end on 09/11 at 5pm. Suggests that I call his insurance to discuss and ask them to reverse the claim. Call to [employer] ([phone]) spoke with someone who transferred me to [facility]Spoke with Marcos at [facility] pharmacy services for claim reversal. Also states that the claim was reversed by [facility] on 09/11, no claim in process at this time. Call to [employer] support, spoke with Donita Jimenez - states that this patient is qualified for a toi.They need to apply for this open toi to try before being able to get free drug. [employer] - [phone] or [employer]org - can apply by phone or website. documented in this encounter Plan of Treatment Upcoming Encounters Date Type Department Care Team (Late st Contact Info) Description 11/21/2023 9:30 AM EDT Office Visit Hematology/Oncology at [address] [phone] Adrianne Ramon MD [facility] HEMATOLOGY [place] [address] Yael Merlos APRN [facility] HEMATOLOGY [place] [address] 11/21/2023 10:00 AM EDT Infusion Hematology Oncology at [address] [phone] 11/23/2023 11:00 AM EDT Office Visit Hematology and Oncology at [place] [phone] Reynold Proctor MD [facility] [place] [address] 11/23/2023 1:00 PM EDT Appointment Hematology and Oncology at [place] [phone] 11/23/2023 2:00 PM EDT Office Visit Hematology and Oncology at [place] [phone] Micha Givens Jr., MD [facility] HEMATOLOGY [place] [address] 11/23/2023 3:30 PM EDT Hospital Encounter MRI at [place] [phone] Micha Givens Jr., MD [facility] HEMATOLOGY [place] [address] documented as of this encounter Visit Diagnoses Not on filedocumented in this encounter Care Teams Lead Designer Relationship Specialty Start Date End Date Frederick Meade MD [address] [place] [address] PCP - General Family Medicine 11/29/17 documented as of this encounter
--- OUTSIDE RECORDS SUMMARY | 2023-11-16 18:59 | XMS_ITS | Encounter Summary ---
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 multiple regions Adrianne Ramon MD [facility] DR [place] [address] Stj Hem Onc Infusion [address] [place] [phone] Referral ID Status Reason Start Date Expiration Date Visits Re quested Visits Authorized [id number] Closed 09/12/2023 09/11/2024 99 99 Encounter Details Date Type Department Care Team (Late st Contact Info) Description 09/19/2023 8:00 AM EDT Infusion Hematology Oncology at [address] [phone] Diffuse large B-cell lymphoma of [...] AM EDT Office Visit Hematology/Oncology at [address] [phone] Adrianne Ramon MD [facility] DR H[place]AT[place] [address] Yael Merlos APRN [facility] [place] [address] 11/21/2023 10:00 AM EDT Infusion Hematology Oncology at [address] [address] 11/23/2023 11:00 AM EDT Office Visit [place] [address] Reynold Proctor MD [facility] [place] [address] 11/23/2023 1:00 PM EDT Appointment [place] [address] 11/23/2023 2:00 PM EDT Office Visit [place] [address] Micha Givens Jr., MD [facility] DR [place]AT[place] [address] 11/23/2023 3:30 PM EDT [place] [address] Micha Givens Jr., MD [facility] DR [place]ATOLOG[place] [address] documented as of this encounter Visit Diagnoses [...] mL/hr documented in this encounter Care Teams Coordinator Cardiopulmonary Services Relationship Specialty Start Date End Date Frederick Maede MD [address] [place] [address] PCP - General Family Medicine 11/29/17 documented as of this encounter
--- OUTSIDE RECORDS SUMMARY | 2023-11-16 18:59 | XMS_ITS | Encounter Summary ---
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 DR HEMATOLOGY [place] [address] [facility] Hem Onc [address] [place] [address] Referral ID Status Reason Start Date Expiration Date V isits Requested Visits Authorized [id number] Closed Specialty Service Requested 09/12/2023 09/11/2024 1 1 Encounter Details Date Type Department Care Team (Late st Contact Info) Description 09/21/2023 9:30 AM EDT Office Visit Hematology [place] [address] Micha Givens Jr., MD [facility] DR HEMATOLOGY [place] [address] Diffuse large B-cell lymphoma of lymph nodes [...] Diffuse Large B-[facility] for Chimeric Antigen Receptor (CAR) T-cell Therapy consideration. The patient comes to clinic with his , Claritza, and daughter, Sarath. HISTORY OF PRESENT ILLNESS: Th patient is a 73 year old male initially referred to Hematology in Sep 2022 by [facility] after presentation with a 4 week h/o of sinus swelling and then cervical adenopathy, such that he could not breathe normally. He was treated for presumed infection (presumed acute retropharyngeal abscess), [facility] ENT, with 2 biopsies done, one of the tonsil, and 1 needle biopsy of a right post cervical lymph node, and prednisone started, with noted response. Pathology from [facility] was c/w Large B-cell lymphoma (Double [...] and needle of cervical LN. 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 Not a . ETOH: Occasional (few beers per week) Smoking: Quit 1985. Approximately [id number] history HIPPA Contact Permission: Claritza and Cheo. [...] History Not Found T&S only valid at [facility] ABORH Recheck Order Order Placed ABORH [...] See comment. Electronically signed by: Dana OCASIO, [facility] Verified: 09/10/2023 15:05 Hematopathologist Performed at: -[facility], [place] [address] Private Eye: Katherine Lopez MD, FCAP, CLIA Certificate: [id number] DISCUSSION The T-lymphocytes , B- lymphocytes and [...] and BCL-2 protein (Double Expressor.) Flow cytometry ([id number]) supports this interpretation. FISH from [place] No MYC rearrangement and no fusion of MYC and IGH was observed, CD3 (SP7, [employer]) Background T-cells CD20 (L26, [place]) diffusely positive in Neoplastic B-cells PAX-5 (1EW, [employer]) diffusely positive in Neoplastic B-cells CD10 (SP67, [place]) Negative BCL-6 (G/191E/A8, [place]) Positive MUM-1 (MUM1p, [employer]) Positive Myc (Y69, [employer]) Positive BCL-2 Oncoprotein (124, [place]) Positive Ki67 (MIB-1) (K2, [employer]) Greater than 95% of cells in cycle Cyclin D1(SP4-R, [place]) Negative SAPPHIRE JOSE (OAL3975-B, [employer]) Negative. DIAGNOSTICS: 01/25/23 ECHO after C#5 [...] Office Visit Hematology/Oncology at [address] [address] Adrianne Ramon MD [facility] DR [place]AT[place]Y [place] [address] Yael Merlos, STRUCTURAL IRON ERECTOR [facility] [place]ATOLOGY [place] [address] 11/21/2023 10:00 AM EDT Infusion Hematology Oncology at [address] [phone] 11/23/2023 11:00 AM EDT Office Visit Hematology and Oncology at [place] [phone] Reynold Proctor MD [facility] [place] [address] 11/23/2023 1:00 PM EDT Appointment Hematology and Oncology at [place] [phone] 11/23/2023 2:00 PM EDT Office Visit Hematology and Oncology at [place] [phone] Micha Givens Jr., MD [facility] [place]OLOGY [place] [address] 11/23/2023 3:30 PM EDT Hospital Encounter MRI at [place] [phone] Micha Givens Jr., MD [facility] HEMATOLOGY [place] [address] Scheduled Referrals Name Type Priority Associated Diagnoses [...] type documented in this encounter Care Teams Human Resources Analyst Relationship Specialty Start Date End Date Frederick Meade MD [address] [facility] [address] [place] [address] PCP - General Family Medicine 11/29/17 documented as of this encounter
--- OUTSIDE RECORDS SUMMARY | 2023-11-16 18:59 | XMS_ITS | Encounter Summary ---
[place] [address] Care Team Providers Care Teaching Supervisor Name Role Phone Frederick Meade MD Primary Care Provider +1 -[phone] Encounter Details Date Type Department Care Team (Latest Contact Info) Description 09/21/2023 10:30 AM EDT Clinical Support [place]ematology [place] [phone] Danii Her, RN Diffuse large B-cell lymphoma [...] be ready for shipment. Patient returns to [facility] for 3-5 days of chemotherapy (outpatient). Cell Infusion - admission for a minimum of 7 days (our [facility] standard is 14) for monitoring. 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 Stay within 1 hour [facility] for 4 weeks post infusion. Caregiver required [...] maintenance records: colo - Last completed at [facility] in 2011 Dental: False teeth, all teeth removed years ago. We discussed role of social services specialist for pretransplant assessment and as a [...] post CAR T. We will have oncology compensation agent re-enforce food safety guidelines post CAR T [...] AM EDT Office Visit Hematology/Oncology at [address] [phone] Adrianne Ramon MD [facility] HEMATOLOGY [place] [address] Yael Merlos APRN [facility] HEMATOLOGY [place] [address] 11/21/2023 10:00 AM EDT Infusion Hematology Oncology at [address] [phone] 11/23/2023 11:00 AM EDT Office Visit Hematology and Oncology at [place] [phone] Reynold Proctor MD [facility] [place] [address] 11/23/2023 1:00 PM EDT Appointment Hematology and Oncology at [place] [address] 11/23/2023 2:00 PM EDT Office Visit Hematology and Oncology at [place] [address] Micha Givens Jr., MD [facility] DR HEMATOLOGY [place] [address] 11/23/2023 3:30 PM EDT Hospital [place] [address] Micha Givens Jr., MD [facility] DR HEMATOLOGY [place] [address] documented as of this encounter Visit Diagnoses Diagnosis Diffuse large B-cell lymphoma of lymph nodes of multiple regions documented in this encounter Care Teams Teaching Supervisor Relationship Specialty Start Date End Date Frederick Meade MD [address] [place] [address] PCP - General Family Medicine 11/29/17 documented as of this encounter
--- OUTSIDE RECORDS SUMMARY | 2023-11-16 18:59 | XMS_ITS | Encounter Summary ---
Author Organization [facility] Address [facility] [address] Care Team Providers Care Histology Specialist Name Role Phone Frederick Meade MD Primary Care Provider +1 -[phone] Reason for Visit * Reason Onset Date Comments Other 09/13/2023 Financial paperw ork Encounter Details Date Type Department Care Team (Late st Contact Info) Description 09/13/2023 Telephone Hematology/Oncology at [address] [phone] Colt Ardon, RN Other (Financial [...] Completed [employer] forms faxed to [phone], fax confirmed. Copy of application and supporting financial docs scanned into media for reference. documented in this encounter Plan of Treatment Upcoming Encounters Date Type Department Care Team (Late st Contact Info) Description 11/21/2023 9:30 AM EDT Office Visit Hematology/Oncology at [address] [address] Adrianne Ramon MD [facility] DR [place] [address] Yael Merlos APRN [facility] [place] [address] 11/21/2023 10:00 AM EDT Infusion Hematology Oncology at [address] [phone] 11/23/2023 11:00 AM EDT Office Visit Hematology [place] [address] Reynold Proctor MD [facility] [place] [address] 11/23/2023 1:00 PM EDT Appointment Hematology and Oncology at [place] [phone] 11/23/2023 2:00 PM EDT Office Visit Hematology and Oncology at [place] [phone] Micha Givens Jr., MD [facility] [place] [address] 11/23/2023 3:30 PM EDT Hospital [place] [address] Micha Givens Jr., MD [facility] DR [place] [address] documented as of this encounter Visit Diagnoses Not on filedocumented in this encounter Care Teams Histology Specialist Relationship Specialty Start Date End Date Frederick Meade MD [address] [place] [address] PCP - General Family Medicine 11/29/17 documented as of this encounter
--- OUTSIDE RECORDS SUMMARY | 2023-11-16 18:59 | XMS_ITS | Encounter Summary ---
Author Organization [facility] Address [facility] [place] [address] Care Team Providers Care Compliance Paralegal Name Role Phone Frederick Meade MD Primary Care Provider +1 [phone] Reason for Visit * Reason Comments Chemotherapy * Treatment/Therapy Plan Authorization (Routine) - Closed Specialty Diagnoses / Procedures Referred By Contac t Referred To Contact Hematology and Oncology Diagnoses Diffuse large B-cell lymphoma of lymph nodes of multiple regions Adrianne Ramon MD [facility] DR HEMATOLOGY [place] [address] Stj Hem Onc Infusion [address] [place] [phone] Referral ID Status Reason Start Date Expiration Date Visits Re quested Visits Authorized [id number] Closed 09/12/2023 09/11/2024 99 99 Encounter Details Date Type Department Care Team (Late st Contact Info) Description 09/26/2023 8:30 AM EDT Infusion Hematology Oncology at [address] [phone] Diffuse large B-cell lymphoma of [...] LAB DATA: completed today at [facility] 605 alerted TENSIONING MACHINE OPERATOR who contacted patients PCP and plan has [...] AM EDT Office Visit Hematology/Oncology at [address] [phone] Adrianne Ramon MD [facility] DR HEMATOLOGY [place] [address] Yael Merlos APRN [facility] HEMATOLOGY [place] [address] 11/21/2023 10:00 AM EDT Infusion Hematology Oncology at [address] [phone] 11/23/2023 11:00 AM EDT Office Visit Hematology [place] [address] Reynold Proctor MD [facility] [place] [address] 11/23/2023 1:00 PM EDT Appointment Hematology [place] [address] 11/23/2023 2:00 PM EDT Office Visit Hematology [place] [phone] Micha Givens Jr., MD [facility] DR HEMATOLOGY [place] [address] 11/23/2023 3:30 PM EDT Hospital [place] [phone] Micha Givens Jr., MD [facility] DR HEMATOLOGY [place] [address] documented as of this encounter Visit Diagnoses [...] mL/hr documented in this encounter Care Teams Compliance Paralegal Relationship Specialty Start Date End Date Frederick Meade MD [address] [place] [address] PCP - General Family Medicine 11/29/17 documented as of this encounter
--- OUTSIDE RECORDS SUMMARY | 2023-11-16 18:59 | XMS_ITS | Encounter Summary ---
Author Organization [facility] [place] [address] Care Team Providers Care Dental Treatment Coordinator Name Role Phone Frederick Meade MD Primary Care Provider [phone] [phone] Encounter Details Date Type Department Care Team [...] AM EDT Office Visit Hematology/Oncology at [address] [phone] Adrianne Ramon MD [facility] [place] [address] Yael Merlos APRN [facility] [place] [address] 11/21/2023 10:00 AM EDT Infusion Hematology Oncology at [address] [phone] 11/23/2023 11:00 AM EDT Office Visit Hematology [place] [phone] Reynold Proctor MD [facility] [place] [address] 11/23/2023 1:00 PM EDT Appointment Hematology [place] [phone] 11/23/2023 2:00 PM EDT Office Visit Hematology [place] [phone] Micha Givens Jr., MD [facility] [place] [address] 11/23/2023 3:30 PM EDT Hospital [place] [address] Micha Givens Jr., MD [facility] [address] [place] [address] documented as of this encounter Visit Diagnoses Not on filedocumented in this encounter Care Teams Dental Treatment Coordinator Relationship Specialty Start Date End Date Frederick Meade MD [address] [place] [address] [address] [place] [address] PCP - General Family Medicine 11/29/17 documented as of this encounter
--- OUTSIDE RECORDS SUMMARY | 2023-11-16 18:59 | XMS_ITS | Encounter Summary ---
Author Organization [facility] [place] [address] Care Team Providers Care Instrument Lens Inspector Name Role Phone Frederick Meade MD Primary Care Provider +1 [phone] Reason for Referral * Consultation (Routine) - Authorized Specialty Diagnoses / Procedures Referred By Paul bowen Referred To Contact Gastroenterology Diagnoses Screening for colon cancer 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 Pre-op testing Micha Givens Jr., MD [facility] [address] [place] [address] Referral ID Status Reason Start Date Expiration Date Visits Requested Visits Authorized [id number] Authorized Test Only 09/26/2023 03/24/2024 1 1 Encounter Details Date Type Department Care Team (Late st Contact Info) Description 09/25/2023 Orders Only [place] [address] Micha Givens Jr., MD [facility] [place] [address] Screening for colon cancer; Diffuse large B-cell [...] AM EDT Office Visit Hematology/Oncology at [address] [address] Adrianne Ramon MD [facility] HEMATOLOGY [place] [address] Yael Merlos APRN [facility] HEMATOLOGY [place] [address] 11/21/2023 10:00 AM EDT Infusion Hematology Oncology at [address] [address] 11/23/2023 11:00 AM EDT Office Visit [place] [phone] Reynold Proctor MD [facility] [place] [address] 11/23/2023 1:00 PM EDT Appointment [place] [address] 11/23/2023 2:00 PM EDT Office Visit [place] [phone] Micha Givens Jr., MD [facility] DR [place] [address] 11/23/2023 3:30 PM EDT [place] [address] Micha Givens Jr., MD [facility] [address] [place] [address] Scheduled Referrals Name Type Priority Associated Diagnoses [...] unspecified documented in this encounter Care Teams Instrument Lens Inspector Relationship Specialty Start Date End Date Frederick Meade MD [address] [place] [address] [address] [place] [address] PCP - General Family Medicine 11/29/17 documented as of this encounter
--- OUTSIDE RECORDS SUMMARY | 2023-11-16 18:59 | XMS_ITS | Encounter Summary ---
Author Organization [facility] [address] Care Team Providers Care Foxing Painter Name Role Phone Frederick Meade MD Primary Care Provider +1 [phone] Reason for Referral * Consultation (Routine) - Authorized Specialty Diagnoses / Procedures Referred By Paul bowen Referred To Contact Architectural Wood Model Maker Diagnoses 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 Pre-op testing Micha Givens Jr., MD [facility] DR HEMATOLOGY [place] [address] Maria L Barnes MSW Referral ID Status Reason Start Date Expiration Date Visits Requested Visits Authorized [id number] Authorized Consult, Test & Treat 09/21/2023 09/20/2024 1 1 * Consultation (Routine) - Authorized Specialty Diagnoses / Procedures Referred By Paul bowen Referred To Contact Diagnoses 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 Pre-op testing Micha Givens Jr., MD [facility] DR HEMATOLOGY [place] [address] [facility] [place] [address] Referral ID Status Reason Start Date Expiration Date Visits Requested Visits Authorized [id number] Authorized Continuity of Care 09/21/2023 09/20/2024 1 1 Encounter Details Date Type Department Care Team (Late st Contact Info) Description 09/21/2023 Orders Only Hematology and Oncology at [facility] [place] [address] Micha Givens Jr., MD [facility] HEMATOLOGY [place] [address] Diffuse large B-cell lymphoma of lymph nodes [...] AM EDT Office Visit Hematology/Oncology at [address] [phone] Adrianne Ramon MD [facility] HEMATOLOGY [place] [address] Yael Merlos APRN [facility] HEMATOLOGY [place] [address] 11/21/2023 10:00 AM EDT Infusion Hematology Oncology at [address] [phone] 11/23/2023 11:00 AM EDT Office Visit Hematology [place] [phone] Reynold Proctor MD [facility] [place] [address] 11/23/2023 1:00 PM EDT Appointment Hematology [place] [address] 11/23/2023 2:00 PM EDT Office Visit Hematology [place] [phone] Micha Givens Jr., MD [facility] HEMATOLOGY [place] [address] 11/23/2023 3:30 PM EDT Hospital [place] [phone] Micha Givens Jr., MD [facility] HEMATOLOGY [place] [address] Pending Results Name Type Priority Associated Diagnoses [...] PFT FEV1/FVC Pre-BD Z-Score -2.14 COMPAS PFT OFD70-16 Actual Pre-BD 1.11 % COMPAS PFT OBB97-58 Predicted 2 % COMPAS PFT WIJ27-43 Pre-BD % of Predicted 56 % COMPAS PFT MLH72-76 Pre-BD Z-Score -1.17 COMPAS PFT DLCO Hb [...] Jr., MD PFT ORDERABLES Performing Organization Address [facility] de Phone Number COMPAS PFT * EKG 12 Lead (10/10/2023 2:40 PM EDT) Ventricular rate 59 BPM MUSE SYSTEM Atrial Rate 59 BPM MUSE SYSTEM P-R Interval 158 ms MUSE SYSTEM QRS Duration 88 ms MUSE SYSTEM Q-T Interval 394 ms MUSE SYSTEM QTC Calculated (Bezet) 390 ms MUSE SYSTEM Calculated P Bradley 67 degrees MUSE SYSTEM Calculated R Bradley 32 degrees MUSE SYSTEM INTERPRETATION Sinus bradycardia Nonspecific ST abnormality Abnormal ECG No previous ECGs available Confirmed by MD Lavelle, James ([id number]) on 10/14/2023 10:09:54 PM MUSE SYSTEM 10/10/2023 2:40 PM EDT 10/14/2023 10:09 PM EDT Micha Givens Jr., MD ECG ORDERABLES Performing Organization Address [facility] de Phone Number MUSE SYSTEM * XR Chest PA & Lateral (Generic) (10/10/2023 2:21 PM EDT) WORKSTATION ID [id number] DH RAD Anatomical Region Laterality Modality Chest [...] questions please contact the health pet care assistant that requested your imaging first. ? Narrative [...] have questions please contactthe health pet care assistant that requested your imaging first. Micha Givens [...] Jr., MD CHEMISTRY ORDERABLES Performing Organization Address [facility] de Phone Number [facility] [place] [address] * (ABNORMAL) CRP, acute inflammation (09/21/2023 11:14 AM EDT) C-Reactive Protein 52.8(H) <=4.9 mg/L [facility] Blood 09/21/2023 11:1 4 AM EDT 09/21/2023 11:30 AM EDT Narrative Resulting Agency Comment Spec In Lab Micha Givens Jr., MD CHEMISTRY ORDERABLES Performing Organization Address [facility] de Phone Number [facility] [place] [address] * Ferritin (09/21/2023 11:14 AM EDT) Ferritin 393 31 - 409 ng/mL [facility] Comment: Please note that as of 01/24/2023, the reference intervals for Ferritin have been updated. Blood 09/21/2023 11:1 4 AM EDT 09/21/2023 11:30 AM EDT Narrative Resulting Agency Comment Spec In Lab Micha Givens Jr., MD CHEMISTRY ORDERABLES Performing Organization Address [facility] Co de Phone Number [facility] [place] [address] * Uric acid (09/21/2023 11:14 AM EDT) Uric Acid 5.1 3.5 - 8.5 mg/dL [facility] Blood 09/21/2023 11:1 4 AM EDT 09/21/2023 11:30 AM EDT Narrative Resulting Agency Comment Spec In Lab Micha Givens Jr., MD CHEMISTRY ORDERABLES Performing Organization Address [facility] de Phone Number [facility] [place] [address] * Calcium, Ionized, Serum (09/21/2023 11:14 AM EDT) Ionized Calcium 1.25 1.15 - 1.33 mmol/L [facility] Comment: Note: Total bilirubin higher than 20 mg/dL may lead to falsely low ionized calcium. This test has not been cleared by the [place] FDA. Performance characteristics of this test were determined by [facility] in accordance with CLIA requirements. This laboratory is qualified under CLIA to perform high-complexity testing. Blood 09/21/2023 11:1 4 AM EDT 09/21/2023 11:30 AM EDT Narrative Resulting Agency Comment Spec In Lab Micha Givens Jr., MD CHEMISTRY ORDERABLES Performing Organization Address [facility] de Phone Number [facility] [place] [address] * Toxoplasma Antibody, IgM (09/21/2023 11:14 AM EDT) Toxoplasma Antibody IgM Negative Negative [facility] Blood 09/21/2023 11:1 4 AM EDT 09/21/2023 1:04 PM EDT Narrative Resulting Agency Comment Spec In Lab Micha Givens Jr., MD IMMUNOLOGY ORDERABLE S Performing Organization Address [facility] Co de Phone Number [facility] [place] [address] * Toxoplasma Antibody, IgG (09/21/2023 11:14 AM EDT) Toxoplasma Antibody IgG Negative Negative [facility] Blood 09/21/2023 11:1 4 AM EDT 09/21/2023 1:04 PM EDT Narrative Resulting Agency Comment Spec In Lab Micha Givens Jr., MD IMMUNOLOGY ORDERABLE S Performing Organization Address [facility] Co de Phone Number [facility] [place] [address] * PSA Screen (09/21/2023 11:14 AM EDT) [...] Jr., MD CHEMISTRY ORDERABLES Performing Organization Address [facility] Co de Phone Number [facility] [place] [address] * Phosphorus (09/21/2023 11:14 AM EDT) Phosphorus 2.9 2.5 - 4.5 mg/dL [facility] Blood 09/21/2023 11:1 4 AM EDT 09/21/2023 11:30 AM EDT Narrative Resulting Agency Comment Spec In Lab Micha Givens Jr., MD CHEMISTRY ORDERABLES Performing Organization Address [facility] Co de Phone Number [facility] [place] [address] * Magnesium (09/21/2023 11:14 AM EDT) Magnesium 0.80 0.69 - 1.07 mmol/L [facility] Blood 09/21/2023 11:1 4 AM EDT 09/21/2023 11:30 AM EDT Narrative Resulting Agency Comment Spec In Lab Micha Givens Jr., MD CHEMISTRY ORDERABLES [facility] [place] [address] * Type and screen ([facility]MARCELINA[place] (09/21/2023 11:14 AM EDT) ABORH Type O NEGATIVE [facility] Patient BB History Not Found [facility] Expires at 2359 on: 09/24/2023 [facility] Ab Screen Interp Negative [facility] Blood 09/21/2023 11:1 4 AM EDT 09/21/2023 11:14 AM EDT Narrative [facility] - 09/21/2023 11:14 AM EDT This Type and Screen result is only valid at the [facility] Resulting Agency Comment Spec In Lab Micha Givens Jr., MD BLOOD BANK LAB ORDER DUONG Performing Organization Address City/[facility]/ZIP Co de Phone Number [facility] [place] [address] * Varicella zoster Antibody, IgG (09/21/2023 11:14 AM EDT) Pathologist [facility] Varicella Zoster Antibody IgG Positive Positive [facility] Comment: A positive result for this assay is considered to be an indicator of positive immune status. Blood 09/21/2023 11:1 4 AM EDT 09/21/2023 1:04 PM EDT Narrative Resulting Agency Comment Spec In Lab Micha Givens Jr., MD IMMUNOLOGY ORDERABLE S [facility] [place] [address] * HSV 1 and 2 IgG Antibodies (09/21/2023 11:14 AM EDT) Pathologist [facility] HSV Type 1 Ab, IgG Negative Negative [facility] HSV Type 2 Ab, IgG Negative Negative [facility] Blood 09/21/2023 11:1 4 AM EDT 09/21/2023 1:04 PM EDT Narrative Resulting Agency Comment Spec In Lab Micha Givens Jr., MD IMMUNOLOGY ORDERABLE S [facility] [place] [address] * (ABNORMAL) Alton-Dominguez Virus Antibodies (09/21/2023 11:14 AM EDT) EBV (VCA) IgG Ab Positive(A) Negative M [facility] EBV (VCA) IgM Ab Negative Negative [facility] EBNA Antibodies Positive(A) Negative [facility] EBV Interpretation Past EBV infection. [facility] [...] MD IMMUNOLOGY ORDERSONY S Performing Organization Address City/[facility]/ZIP Co de Phone Number [facility] [place] [address] * CMV Antibody, IgM (09/21/2023 11:14 AM EDT) CMV IgM Negative Negative [facility] Blood 09/21/2023 11:1 4 AM EDT 09/21/2023 1:04 PM EDT Narrative Resulting Agency Comment Spec In Lab Micha Givens Jr., MD IMMUNOLOGY ORDERABLE S [facility] [place] [address] * CMV Antibody, IgG (09/21/2023 11:14 AM EDT) CMV IgG Negative Negative [facility] Blood 09/21/2023 11:1 4 AM EDT 09/21/2023 1:04 PM EDT Narrative Resulting Agency Comment Spec In Lab Micha Givens Jr., MD IMMUNOLOGY ORDERABLE S [facility] [place] [address] * Urinalysis with reflex Culture (09/21/2023 11:11 [...] HOSPITAL LABORATORY Leukocytes, Urine Dipstick Negative Negative [facility] Appearance, Urine Dipstick Clear Clear [facility] Specific [place] Urine Automated 1.009 1.005 - 1.030 [facility] Color, Urine Dipstick Yellow Yellow [facility] Reflex to Culture No [facility] Clean Catch Urine 09/21/2023 11:11 AM EDT 09/21/2023 11:33 AM EDT Narrative Resulting Agency Comment Spec In Lab Micha Givens Jr., MD URINE ORDERABLES [facility] [place] [address] documented in this encounter Visit Diagnoses Diagnosis [...] unspecified documented in this encounter Care Teams Foxing Painter Relationship Specialty Start Date End Date Frederick Meade MD [address] [place] [address] PCP - General Family Medicine 11/29/17 documented as of this encounter
--- OUTSIDE RECORDS SUMMARY | 2023-11-16 18:59 | XMS_ITS | Encounter Summary ---
Author Organization [facility] [place] [address] Care Team Providers Care Pot Washer Name Role Phone Frederick Meade MD Primary Care Provider +1 -[phone] Encounter Details Date Type Department Care Team [...] AM EDT Office Visit Hematology/Oncology at [address] [address] Adrianne Ramon MD [facility] DR HEMATOLOGY [place] [address] Yael Merlos APRN [facility] DR HEMATOLOGY [place] [address] 11/21/2023 10:00 AM EDT Infusion Hematology Oncology at [address] [phone] 11/23/2023 11:00 AM EDT Office Visit Hematology [place] [address] Reynold Proctor MD [facility] [place] [address] 11/23/2023 1:00 PM EDT Appointment Hematology [place] [phone] 11/23/2023 2:00 PM EDT Office Visit Hematology [place] [address] Micha Givens Jr., MD [facility] HEMATOLOGY [place] [address] 11/23/2023 3:30 PM EDT Hospital [place] [address] Micha Givens Jr., MD [facility] DR HEMATOLOGY [place] [address] documented as of this encounter Visit Diagnoses Not on filedocumented in this encounter Care Teams Pot Washer Relationship Specialty Start Date End Date Frederick Meade MD [address] [place] [address] [address] [place] [address] PCP - General Family Medicine 11/29/17 documented as of this encounter
--- OUTSIDE RECORDS SUMMARY | 2023-11-16 19:00 | XMS_ITS | Encounter Summary ---
[place] [address] Care Team Providers Care Vault Clerk Name Role Phone Frederick Meade MD Primary Care Provider [phone] -[phone] Reason for Referral * Diagnostic Test (Routine) - Closed Specialty Diagnoses / Procedures Referred By Contac t Referred To Contact Radiology Diagnoses Diffuse large B-cell lymphoma of lymph nodes of multiple regions Procedures NM PET CT Skull Base to Mid-thigh Yael Merlos APRN [facility] HEMATOLOGY [place] [address] [place] [address] Referral ID Status Reason Start Date Expiration Date V isits Requested Visits Authorized [id number] Closed Specialty Service Requested 01/15/2023 07/15/2024 1 1 Encounter Details Date Type Department Care Team (Late st Contact Info) Description 01/15/2023 Orders Only Hematology [place] [address] Yael Merlos APRN [facility] HEMATOLOGY [place] [address] Diffuse large B-cell lymphoma of [...] AM EDT Office Visit Hematology/Oncology at [address] [address] Adrianne Ramon MD [facility] HEMATOLOGY [place] [address] Yael Merlos, CYLINDER DIE MACHINE HELPER [facility] HEMATOLOGY [place] [address] 11/21/2023 10:00 AM EDT Infusion Hematology Oncology at [address] [address] 11/23/2023 11:00 AM EDT Office Visit Hematology [place] [address] Reynold Proctor MD [facility] [place] [address] 11/23/2023 1:00 PM EDT Appointment Hematology [place] [address] 11/23/2023 2:00 PM EDT Office Visit Hematology and Oncology at [place] [phone] Micha Givens Jr., MD [facility] DR [place] [address] 11/23/2023 3:30 PM EDT Hospital Encounter MRI at [place] [phone] Micha Givens Jr., MD [facility] DR HEMATOLOGY [place] [address] documented as of this encounter Results * [...] questions please contact the health day care supervisor that requested your imaging first. ? Electronically signed by: Tracey Flood MD, [facility] ??([phone]), at 03/08/2023 11:33 AM Narrative 03/08/2023 11:33 AM EST EXAMINATION: NM PET CT STANDARD SKULL BASE TO MID-THIGH CLINICAL HISTORY: Hematologic malignancy, assess treatment response History of diffuse large B-cell lymphoma, status post 6 cycles of RCHOP. TECHNIQUE: Following IV injection of 45-wsnolr-9-deoxyglucose (FDG) a standard uptake of approximately 60 [...] of RCHOP. TECHNIQUE: Following IV injection of 67-sfimoz-5-deoxyglucose (FDG) astandard uptake of approximately 60 minutes, [...] have questions please contactthe health day care supervisor that requested your imaging first. 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 [address] [place] [address] PCP - General Family Medicine 11/29/17 documented as of this encounter
--- OUTSIDE RECORDS SUMMARY | 2023-11-16 19:00 | XMS_ITS | Encounter Summary ---
Author Organization [facility] [place] [address] Care Team Providers Care Acoustical Installer Name Role Phone Frederick Meade MD Primary Care Provider [phone] Encounter Details Date Type Department Care Team [...] AM EDT Office Visit Hematology/Oncology at [address] [address] Adrianne Ramon MD [facility] DR HEMATOLOGY [place] [address] Yael Merlos APRN [facility] DR HEMATOLOGY [place] [address] 11/21/2023 10:00 AM EDT Infusion Hematology Oncology at [address] [address] 11/23/2023 11:00 AM EDT Office Visit Hematology [place] [phone] Reynold Proctor MD [facility] [place] [place] [address] 11/23/2023 1:00 PM EDT Appointment Hematology [place] [phone] 11/23/2023 2:00 PM EDT Office Visit Hematology [place] [address] Micha Givens Jr., MD [facility] HEMATOLOGY [place] [address] 11/23/2023 3:30 PM EDT Hospital [place] [address] Micha Givens Jr., MD [facility] DR HEMATOLOGY [place] [address] documented as of this encounter Visit Diagnoses Not on filedocumented in this encounter Care Teams Acoustical Installer Relationship Specialty Start Date End Date Frederick Meade MD [address] [place] [address] [address] [place] [address] PCP - General Family Medicine 11/29/17 documented as of this encounter
--- OUTSIDE RECORDS SUMMARY | 2023-11-16 19:00 | XMS_ITS | Encounter Summary ---
Author Organization [facility] [place] [address] Care Team Providers Care Litigation Examiner Name Role Phone Frederick Meade MD Primary Care Provider [phone] [phone] Encounter Details Date Type Department Care Team [...] AM EDT Office Visit Hematology/Oncology at [address] [address] Adrianne Ramon MD [facility] DR [place] [address] Yael Merlos APRN [facility] [place] [address] 11/21/2023 10:00 AM EDT Infusion Hematology Oncology at [address] [address] 11/23/2023 11:00 AM EDT Office Visit Hematology [place] [phone] Reynold Proctor MD [facility] [place] [address] 11/23/2023 1:00 PM EDT Appointment Hematology [place] [phone] 11/23/2023 2:00 PM EDT Office Visit Hematology [place] [phone] Micha Givens Jr., MD [facility] [place] [address] 11/23/2023 3:30 PM EDT Hospital [place] [address] Micha Givens Jr., MD [facility] [address] [place] [address] documented as of this encounter Visit Diagnoses Not on filedocumented in this encounter Care Teams Litigation Examiner Relationship Specialty Start Date End Date Frederick Meade MD [address] [place] [address] [address] [place] [address] PCP - General Family Medicine 11/29/17 documented as of this encounter
--- OUTSIDE RECORDS SUMMARY | 2023-11-16 19:00 | XMS_ITS | Encounter Summary ---
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 [...] TEST DAILY 4 03/11/2018 ONETOUCH ULTRASOFT LANCETS [facility] USE TO TEST DAILY 2 06/07/2018 colchicine [...] AM EDT Office Visit Hematology/Oncology at [address] [address] Adrianne Ramon MD [facility] [address] [place] [address] Yael Merlos APRN [facility] [address] [place] [address] 11/21/2023 10:00 AM EDT Infusion Hematology Oncology at [address] [address] 11/23/2023 11:00 AM EDT Office Visit [place] [phone] Reynold Proctor MD [facility] [place] [address] 11/23/2023 1:00 PM EDT Appointment Hematology [place] [address] 11/23/2023 2:00 PM EDT Office Visit [place] [address] Micha Givens Jr., MD [facility] [address] [place] [address] 11/23/2023 3:30 PM EDT [place] [address] Micha Givens Jr., MD [facility] [address] [place] [address] Scheduled Orders Name Type Priority Associated Diagnoses [...] 7:45 AM EST) Neutrophil % 56.0 % [facility] Neutrophil Absolute 3.23 1.70 - 6.10 x10(3)/mc L [facility] Lymph % 12.1 % [facility] Lymphocytes Abs 0.7(L) 0.9 - 3.2 x10(3)/mc L [facility] Monocyte % 20.5 % [facility] ITAL [facility] Monocyte Abs 1.2(H) 0.3 - 0.9 x10(3)/ L [facility] Eos % 10.2 % [facility] Eosinophils Abs 0.6(H) 0.0 - 0.4 x10(3)/[facility] LAB[facility] Basophil % 1.0 % [facility] Baso Absolute 0.1 0.0 - 0.1 x10(3)/[facility] LAB[facility]AT[facility] Immature Gran % 0.20 % [facility] Comment: Immature granulocytes(IG's)percentage and absolute count will include metamyelocytes, myelocytes, and promyelocytes. Blood smears from CBCs yielding IG's will be scanned manually for concordance. If this scan disagrees with the automated IG or if promyelocytes are noted, a manual differential will be performed. Immature Gran Absolute 0.01 0.00 - 0.04 x10(3)/[facility] LAB[facility] Blood 03/06/2023 7:45 AM EST 03/06/2023 8:00 AM EST Narrative Resulting Agency Comment Spec In Lab Adrianne Ramon MD HEMATOLOGY ORDER [facility] [place] [address] * (ABNORMAL) Hemogram (03/06/2023 7:45 AM EST) White Blood Cell 5.8 4.0 - 9.5 x10(3)/[facility] LAB[facility] Red Blood Cell 3.67(L) 4.58 - 5.54 x10(6)/[facility] Hemoglobin 11.3(L) 13.7 - 16.5 g/dL [facility] Hematocrit 34.5(L) 40.5 - 48.5 % [facility] Mean Cell Volume 94.0(H) 82.9 - 93.1 fL [facility] Mean Cell Hemoglobin 30.8 27.5 - 32.1 pg [facility] Mean Cell Hemoglobin Concentration 32.8 32.0 - 35.7 g/dL [facility] Platelet 211 145 - 357 x10(3)/mc L [facility] RDW Standard Deviation 54.8(H) 36.0 - 45.0 fL [facility] RDW coefficient of variation 15.9(H) 11.4 - 13.8 % [facility] Mean Platelet Volume 10.2 7.6 - 12.9 fL [facility] NRBC% auto 0.0 % [facility] HOSP ITAL LABOR[facility] NRBC Absolute 0.000 0.000 - 0.000 x10(3)/mc L [facility] Blood 03/06/2023 7:45 AM EST 03/06/2023 8:00 AM EST Narrative Resulting Agency Comment Spec In Lab Adrianne Ramon MD HEMATOLOGY ORDER [facility] [place] [address] * (ABNORMAL) Comprehensive metabolic panel (non-fasting) (03/06/2023 7:45 AM EST) Glucose 133 65 - 199 mg/dL [facility] Comment:Diabetes: >=200 mg/d L plus symptoms Blood Urea Nitrogen 12 10 - 20 mg/dL [facility] Creatinine 0.94 0.80 - 1.50 mg/dL [facility] Sodium 143 135 - 145 mmol/L [facility] Potassium 3.7 3.5 - 5.0 mmol/L [facility] Comment: Please note: ??Patients with WBC >100,000 may have falsely elevated Potassium levels. ??For accurate Potassium quantification in these patients send serum separator tube (gold top) for subsequent determinations. ??Contact the Clinical Chemistry Laboratory if there are any questions. Chloride 108(H) 98 - 107 mmol/L [facility] Carbon Dioxide 23 22 - 31 mmol/L [facility] Anion Gap 12 5 - 15 mmol/L [facility] Calcium 9.6 8.5 - 10.5 mg/dL [facility] Protein, Total 6.4 6.1 - 8.0 g/dL [facility] Albumin 4.1 3.2 - 5.2 g/dL [facility] Aspartate Aminotransferase 22 0 - 39 unit/L [facility] Alanine Aminotransferase 18 0 - 55 unit/L [facility] Alkaline Phosphatase 103 40 - 130 unit/L [facility] Bilirubin, Total 0.2 0.2 - 1.3 mg/dL [facility] Est Glomerular Filtration Rate 85 >=60 mL/min/1. 73 m?? [facility] Comment: This patient's estimated GFR was [...] MD CHEMISTRY ORDERFreedom OSEGUERA Performing Organization Address City/[facility]/ZIP Co de Phone Number [facility] [place] [address] * (ABNORMAL) Immunoglobulins, Quantitative (03/06/2023 7:45 AM EST) Immunoglobulin G 572(L) 700 - 1,600 mg/dL [facility] Comment: Pediatric Reference Intervals obtained from the Caliper Reference Interval project. http://www.sickCrowdfyndds.ca/caliperproject/index.html IgA 118 70 - 400 mg/dL [facility] IgM 123 40 - 230 mg/dL [facility] Blood 03/06/2023 7:45 AM EST 03/06/2023 8:00 AM EST Narrative Resulting Agency Comment Spec In Lab Adrianne Ramon MD CHEMISTRY ORDERFreedom OSEGUERA [facility] [place] [address] * Lactate Dehydrogenase (03/06/2023 7:45 AM EST) Lactate Dehydrogenase 198 110 - 220 unit/L [facility] Blood 03/06/2023 7:45 AM EST 03/06/2023 8:00 AM EST Narrative Resulting Agency Comment Spec In Lab Adrianne Ramon MD CHEMISTRY ORDERA BLES [facility] [place] [address] * Uric acid (03/06/2023 7:45 AM EST) Uric Acid 5.5 3.5 - 8.5 mg/dL [facility] Blood 03/06/2023 7:45 AM EST 03/06/2023 8:00 AM EST Narrative Resulting Agency Comment Spec In Lab Adrianne Ramon MD CHEMISTRY ORDERA BLES Performing Organization Address City/[facility] Co de Phone Number [facility] [place] [address] documented in this encounter Visit Diagnoses Diagnosis [...] Sun03/06/23 at 0740, Until Sun03/07/23 at 0433, Flight Line Mechanic, Routine Given 03/06/2023 7:50 AM EST 20 mLs documented in this encounter Care Teams Glove Machine Operator Relationship Specialty Start Date End Date Frederick Meade MD [address] [place] [address] [address] [place] [address] PCP - General Family Medicine 11/29/17 documented as of this encounter
--- OUTSIDE RECORDS SUMMARY | 2023-11-16 19:00 | XMS_ITS | Encounter Summary ---
Author Organization [facility] [place] [address] Care Team Providers Care Document Improvement Specialist Name Role Phone Frederick Meade MD Primary Care Provider [phone] Reason for Visit * Reason Comments Chemotherapy [id number] * Treatment/Therapy Plan Authorization (Routine) - Closed [...] TC CYCLOPHOSPHAMIDE, 100MG (CYTOXAN) Adrianne Ramon MD [facility] DR [place] [address] [facility] Infusion [address] [place] [phone] Referral ID Status Reason Start Date Expiration Date Visits Re quested Visits Authorized [id number] Closed 10/11/2022 10/11/2023 1 100 Encounter Details Date Type Department Care Team (Late st Contact Info) Description 01/10/2023 9:00 AM EST Infusion Hematology Oncology at [address] [address] Diffuse large B-cell lymphoma of [...] OBJECTIVE LAB DATA: completed today at [facility] Pre administration: Chemotherapy orders independently verified for [...] AM EDT Office Visit Hematology/Oncology at [address] [address] Adrianne Ramon MD [facility] DR [place] [address] Yael Merlos APRN [facility] DR [place] [address] 11/21/2023 10:00 AM EDT Infusion Hematology Oncology at [address] [address] 11/23/2023 11:00 AM EDT Office Visit Hematology [place] [address] Reynold Proctor MD [facility] [place] [address] 11/23/2023 1:00 PM EDT Appointment Hematology [place] [address] 11/23/2023 2:00 PM EDT Office Visit Hematology [place] [address] Micha Givens Jr., MD [facility] DR [place] [address] 11/23/2023 3:30 PM EDT Hospital Encounter MRI at [facility] [place] [address] Micha Givens Jr., MD [facility] [address] [place] [address] documented as of this encounter Visit Diagnoses [...] 2 minutes is a recommendation from the helper chicken farm. Administer prior to chemotherapy., Routine Given 01/10/2023 [...] Job Aid: Adult Flushing & Catheter Care (7478) job aid for additional information regarding guidelines [...] Job Aid: Adult Flushing & Catheter Care (9071) job aid for additional information regarding guidelines [...] mL/hr documented in this encounter Care Teams Document Improvement Specialist Relationship Specialty Start Date End Date Frederick Meade MD [address] [place] [address] PCP - General Family Medicine 11/29/17 documented as of this encounter
--- OUTSIDE RECORDS SUMMARY | 2023-11-16 19:00 | XMS_ITS | Encounter Summary ---
Author Organization [facility] Address [facility] [place] [address] Care Team Providers Care Cable Tender Name Role Phone Frederick Meade MD Primary Care Provider [phone] [phone] Reason for Visit * Reason Comments Follow-up Chemotherapy Encounter Details Date Type Department Care Team (Late st Contact Info) Description 01/31/2023 8:30 AM EST Office Visit Hematology/Oncology at [address] [address] Yael Merlos, CONTACT LENS MANUFACTURER [facility] DR [place] [address] Diffuse large B-cell lymphoma of lymph nodes [...] this encounter Progress Notes * Yael Merlos, CONTACT LENS MANUFACTURER - 01/31/2023 8:30 AM EST Hematology Clinic [facility] [place] [address] HEMATOLOGY PATIENT EVALUATION PROBLEM LIST: Patient Active [facility] to [facility]. [facility] [address] CAP, [...] - unclear cause. - last COLO at [facility] was 01/17/2012. INTERIM HISTORY OF [...] and needle of cervical LN. FISH from [facility] No MYCrearrangement and no fusion of MYC [...] Freire. Enjoys reads, movies, race car, cards. [employer]. 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 Not a . ETOH: 1-3 beers per week Smoking: Quit 1985. Approximately [id number] history Vaping or electronic cigarettes: denies Chewing [...] delightful 72-year old male in [facility]. He is accompanied to the clinic by [...] and BCL-2 protein (Double Expressor.) Flow cytometry ([id number]) supports this interpretation. FISH from [facility] No MYC rearrangement and no fusion of MYC and IGH was observed, CD3 (SP7, Thermo Scientific) Background T-cells CD20 (L26, Blackduck) diffusely positive in Neoplastic B-cells PAX-5 (1EW, Leica) diffusely positive in Neoplastic B-cells CD10 (SP67, Blackduck) Negative BCL-6 (G/191E/A8, Blackduck) Positive MUM-1 (MUM1p, Dako) Positive Myc (Y69, Abcam) Positive BCL-2 Oncoprotein (124, Blackduck) Positive Ki67 (MIB-1) (K2, Leica) Greater than 95% of cells in cycle Cyclin D1(SP4-R, Blackduck) Negative SAPPHIRE JOSE ([id number], Leica) Negative. DIAGNOSTICS: 01/25/23 ECHO after C#5 [...] LVEF at 50-55%. --asymptomatic --repeat echo at [facility] 1 year post completion of [...] and counseling as appropriate. Yael Merlos, MSN, CONTACT LENS MANUFACTURER Nurse Practitioner Section of Hematology Copy Frederick Meade MD documented in this encounter Plan of Treatment Upcoming Encounters Date Type Department Care Team (Late st Contact Info) Description 11/21/2023 9:30 AM EDT Office Visit Hematology/Oncology at [address] [address] Adrianne Ramon MD [facility] [place] [address] Yael Merlos APRN [facility] [place] [address] 11/21/2023 10:00 AM EDT Infusion Hematology Oncology at [address] [address] 11/23/2023 11:00 AM EDT Office Visit [place] [address] Reynold Proctor MD [facility] [place] [address] 11/23/2023 1:00 PM EDT Appointment Hematology and Oncology at [place] [phone] 11/23/2023 2:00 PM EDT Office Visit [place] [address] Micha Givens Jr., MD [facility] [place] [address] 11/23/2023 3:30 PM EDT [place] [address] Micha Givens Jr., MD [facility] DR [place] [address] documented as of this encounter Procedures Procedure [...] difficile documented in this encounter Care Teams Cable Tender Relationship Specialty Start Date End Date Frederick Meade MD [facility] [address] [place] [address] PCP - General Family Medicine 11/29/17 documented as of this encounter
--- OUTSIDE RECORDS SUMMARY | 2023-11-16 19:00 | XMS_ITS | Encounter Summary ---
[place] [address] Care Team Providers Care Lens Cleaner Name Role Phone Frederick Meade MD Primary Care Provider [phone] Reason for Visit * Diagnostic Test (Routine) - Closed Specialty Diagnoses / Procedures Referred By Contac t Referred To Contact Radiology Diagnoses Diffuse large B-cell lymphoma of lymph nodes of multiple regions Procedures NM PET CT Skull Base to Mid-thigh Yael Merlos SOFTWARE DEVELOPMENT ENGINEER [facility] [place] [address] [place] [address] Referral ID Status Reason Start Date Expiration Date V isits Requested Visits Authorized [id number] Closed Specialty Service Requested 01/15/2023 07/15/2024 1 1 Encounter Details Date Type Department Care Team (Latest Contact Info) Description 03/06/2023 7:52 AM EST - 03/06/2023 11:59 PM [facility] Hospital Encounter [place] [address] Yael Merlos [facility] [place] [address] Discharge Disposition: Home Social History [...] tablet Take 5 mg by mouth daily. bettermarks ULTRA BLUE TEST STRIP Strip USE TO [...] Office Visit Hematology/Oncology at [address] [phone] Adrianne Ramon MD [facility] [place] [address] Yael Merlos, SOFTWARE DEVELOPMENT ENGINEER [facility] [place] [address] 11/21/2023 10:00 AM EDT Infusion Hematology Oncology at [address] [phone] 11/23/2023 11:00 AM EDT Office Visit [place]ematology [place] [address] Reynold Proctor MD [facility] [place] [address] 11/23/2023 1:00 PM EDT Appointment H[place]ology [place] [address] 11/23/2023 2:00 PM EDT Office Visit [place]ology [place] [address] Micha Givens Jr., MD [facility] [place] [address] 11/23/2023 3:30 PM EDT Hospital [place] [address] Micha Givens Jr., MD [facility] [place] [address] documented as of this encounter [...] Glucose, POC 126 65 - 199 mg/dL [facility] Comment: Supplemental ranges: <140 mg/dL before meals <180 mg/dL all other times of the day Blood 03/06/2023 8:05 AM EST 03/06/2023 8:05 AM EST Yael Merlos SOFTWARE DEVELOPMENT ENGINEER POINT OF CARE TEST ORDERABLES [facility] [place] [address] documented in this encounter Visit Diagnoses Not on filedocumented in this encounter Care Teams Lens Cleaner Relationship Specialty Start Date End Date Frederick Meade MD [address] [place] [address] [address] [place] [address] PCP - General Family Medicine 11/29/17 documented as of this encounter
--- OUTSIDE RECORDS SUMMARY | 2023-11-16 19:00 | XMS_ITS | Encounter Summary ---
[place] [address] Care Team Providers Care Gear Cutter Name Role Phone Frederick Meade MD Primary Care Provider [phone] Encounter Details Date Type Department Care Team (Late st Contact Info) Description 06/22/2023 Orders Only [place]ematology [place] [phone] Deidre Silverio Social History Tobacco Use Types [...] AM EDT Office Visit Hematology/Oncology at [address] [phone] Adrianne Ramon MD [facility] [address] HEMATOLOGY [place] [address] Yael Merlos APRN [facility] HEMATOLOGY [place] [address] 11/21/2023 10:00 AM EDT Infusion Hematology Oncology at [address] [phone] 11/23/2023 11:00 AM EDT Office Visit [place]ematology [place] [phone] Reynold Proctor MD [facility] [address] 11/23/2023 1:00 PM EDT Appointment Hematology [place] [address] 11/23/2023 2:00 PM EDT Office Visit [place]ematology [place] [phone] Micha Givens Jr., MD [facility] [address] HEMATOLOGY [place] [address] 11/23/2023 3:30 PM EDT Hospital [place] [address] Micha Givens Jr., MD [facility] HEMATOLOGY [place] [address] documented as of this encounter Visit Diagnoses Not on filedocumented in this encounter Care Teams Gear Cutter Relationship Specialty Start Date End Date Frederick Meade MD [facility] [address] [place] [address] PCP - General Family Medicine 11/29/17 documented as of this encounter
--- OUTSIDE RECORDS SUMMARY | 2023-11-16 19:00 | XMS_ITS | Encounter Summary ---
[place] [address] Care Team Providers Care Missing Persons Investigator Name Role Phone Frederick Meade MD Primary Care Provider +1 [phone] Reason for Referral * Diagnostic Test (Routine) - Closed Specialty Diagnoses / Procedures Referred By Contac t Referred To Contact Radiology Diagnoses Diffuse large B-cell lymphoma of lymph nodes of multiple regions Procedures IR Mediport Removal Yael Merlos SCRAP SEPARATOR [facility] DR HEMAT[place] [address] [facility] [place] [address] Referral ID Status Reason Start Date Expiration Date V isits Requested Visits Authorized [id number] Closed Specialty Service Requested 03/15/2023 09/12/2024 1 1 Reason for Visit * Diagnostic Test (Routine) - Closed Specialty Diagnoses / Procedures Referred By Contac t Referred To Contact Radiology Diagnoses Diffuse large B-cell lymphoma of lymph nodes of multiple regions Procedures IR Mediport Removal Yael Merlos SCRAP SEPARATOR [facility] HEMATOLOGY [place] [address] [facility] [place] [address] Referral ID Status Reason Start Date Expiration Date V isits Requested Visits Authorized [id number] Closed Specialty Service Requested 03/15/2023 09/12/2024 1 1 Encounter Details Date Type Department Care Team (Latest Contact Info) Description 03/29/2023 12:51 PM EST - 03/29/2023 11:59 PM EST Hospital Encounter Radiology at [facility] [place] [address] Yael Merlos APRN [facility] DR HEMATOLOGY [place] [address] Diffuse large B-cell lymphoma of lymph nodes [...] RN - 03/29/2023 2:08 PM EST [facility] Vascular and Interventional Radiology Discharge [...] not peel them off. There may be Hobbs-mcqueen (skin glue) also, allow this to flake [...] is during regular office hours, please call [phone]. If it is after regular office hours, or on weekends or holidays, please call [phone] and ask to speak to the Cinder Man convention worker for Interventional Radiology. You have received medication [...] tablet Take 5 mg by mouth daily. [employer] ULTRA BLUE TEST STRIP Strip USE TO [...] of : 1950 AGE: 72 y.o. Address: [address] [place] [address] Phone: [phone] (home) Mobile: Telephone Information: Referring Provider: Yael Merlos REASON FOR VISIT: Order Questions Answers Where will study be performed? [facility] Radiology [120] Reason for exam and [...] AM EDT Office Visit Hematology/Oncology at [address] [address] Adrianne Ramon MD [facility] DR HEMATOLOGY [place] [address] Yael Merlos APRN [facility] DR HEMATOLOGY [place] [address] 11/21/2023 10:00 AM EDT Infusion Hematology Oncology at [address] [address] 11/23/2023 11:00 AM EDT Office Visit Hematology [place] [address] Reynold Proctor MD [facility] [place] [address] 11/23/2023 1:00 PM EDT Appointment Hematology [place] [address] 11/23/2023 2:00 PM EDT Office Visit Hematology [place] [address] Micha Givens Jr., MD [facility] DR HEMATOLOGY [place] [address] 11/23/2023 3:30 PM EDT Hospital [place] [address] Micha Givens Jr., MD [facility] HEMATOLOGY [place] [address] documented as of this encounter Procedures Procedure [...] port explant Indication: Lymphoma, therapy complete, discontinue snf central venous access for chemotherapy Pre-procedure: Informed [...] venous port with all components accounted for. ball fringe machine operator: ??Chalo Crews PA-C Attending of record: Ole Arvizu MD 03/29/2023 Yael Merlos SCRAP SEPARATOR IMG IR ORDERABLES documented in this encounter [...] section) documented in this encounter Care Teams Missing Persons Investigator Relationship Specialty Start Date End Date Frederick Meade MD [address] [place] [address] PCP - General Family Medicine 11/29/17 documented as of this encounter
--- OUTSIDE RECORDS SUMMARY | 2023-11-16 19:00 | XMS_ITS | Encounter Summary ---
Author Organization [facility] Address [facility] [place] [address] Care Team Providers Care Porcelain Enamel Installer Name Role Phone Frederick Meade MD Primary Care Provider [phone] [phone] Encounter Details Date Type Department Care Team (Late st Contact Info) Description 03/14/2023 11:30 AM EST Office Visit Hematology/Oncology at [address] [address] Adrianne Ramon MD [facility] [address] [place] [address] Yael Merlos APRN [facility] [address] [place] [address] Diffuse large B-cell lymphoma of lymph nodes [...] - 03/14/2023 11:30 AM EST Hematology Clinic [facility] [place] [address] HEMATOLOGY PATIENT EVALUATION PROBLEM LIST: Patient Active [...] in [facility] and when to [facility]. No beds so sent to [facility] for [address] [...] cause. - last COLO at [facility] was 01/17/2012. INTERIM HISTORY OF PRESENT ILLNESS: [...] and needle of cervical LN. FISH from [place] No MYCrearrangement and no fusion of MYC [...] only 1 biologic. Son Cheo Freire. Enjoys [employer], movies, race car, cards. [employer]. 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 Not a . ETOH: 1-3 beers per week Smoking: Quit 1985. Approximately 35-evjc-zsgw history Vaping or electronic cigarettes: denies Chewing [...] delightful 72-year old male in [facility]. He is accompanied to the clinic [...] and BCL-2 protein (Double Expressor.) Flow cytometry ([id number]) supports this interpretation. FISH from [place] No MYC rearrangement and no fusion of MYC and IGH was observed, CD3 (SP7, [employer] Scientific) Background T-cells CD20 (L26, [place]) diffusely positive in Neoplastic B-cells PAX-5 (1EW, Leica) diffusely positive in Neoplastic B-cells CD10 (SP67, [place]) Negative BCL-6 (G/191E/A8, [place]) Positive MUM-1 (MUM1p, [place]) Positive Myc (Y69, [employer]) Positive BCL-2 Oncoprotein (124, [place]) Positive Ki67 (MIB-1) (K2, Leica) Greater than 95% of cells in cycle Cyclin D1(SP4-R, [place]) Negative SAPPHIRE JOSE ([id number], [employer]) Negative. DIAGNOSTICS: 01/25/23 ECHO after C#5 [...] investigation with ultrasound. CT CAP at [facility], report and images have [...] 50-55%. --asymptomatic --repeat echo at [facility] 1 year post completion of therapy Suspected [...] 2028. Send PET images to [facility] for future comparison w/ surveillance CT scans. [...] AM EDT Office Visit Hematology/Oncology at [address] [address] Adrianne Ramon MD [facility] [place] [address] Yael eMrlos APRN [facility] [place] [address] 11/21/2023 10:00 AM EDT Infusion Hematology Oncology at [address] [address] 11/23/2023 11:00 AM EDT Office Visit Hematology [place] [address] Reynold Proctor MD [facility] [place] [place] [address] 11/23/2023 1:00 PM EDT Appointment Hematology [place] [address] 11/23/2023 2:00 PM EDT Office Visit Hematology [place] [address] Micha Givens Jr., MD [facility] DR HEMATOLOGY [place] [address] 11/23/2023 3:30 PM EDT Hospital [place] [address] Micha Givens Jr., MD [facility] DR HEMATOLOGY [place] [address] documented as of this encounter Visit Diagnoses Diagnosis 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 [place] [address] PCP - General Family Medicine 11/29/17 documented as of this encounter
--- OUTSIDE RECORDS SUMMARY | 2023-11-16 19:00 | XMS_ITS | Encounter Summary ---
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 of multiple regions Skin nodule Procedures IR Biopsy Lymph Node (Chest/Abdomen/Pelvis) IR Biopsy Lymph Node (Head/Neck) Adrianne Ramon MD [facility] [address] [place] [address] [place] [address] Referral ID Status Reason Start Date Expiration Date V isits Requested Visits Authorized [id number] Closed Specialty Service Requested 08/22/2023 02/21/2025 1 1 * Diagnostic Test (Routine) - Closed Specialty Diagnoses / Procedures Referred By Contac t Referred To Contact Radiology Diagnoses 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 of multiple regions Skin nodule Procedures NM PET CT Standard Plus Extremities and Head Adrianne Ramon MD [facility] [place] [address] [place] [address] Referral ID Status Reason Start Date Expiration Date V isits Requested Visits Authorized [id number] Closed Specialty Service Requested 08/22/2023 02/21/2025 1 1 Encounter Details Date Type Department Care Team (Late st Contact Info) Description 08/22/2023 12:30 PM EDT Office Visit Hematology/Oncology at [address] [address] Adrianne Ramon MD [facility] [address] [place] [address] Yael Merlos APRN [facility] [place] [address] Diffuse large B-cell lymphoma of lymph nodes [...] - 08/22/2023 12:30 PM EDT Hematology Clinic [facility] [place] [address] HEMATOLOGY PATIENT EVALUATION PROBLEM LIST: Patient Active [...] [facility] and when to [facility]. No beds so sent to [facility] for [address] CAP, MRI, [...] - unclear cause. - last COLO at [facility] was 01/17/2012. INTERIM HISTORY OF [...] and needle of cervical LN. FISH from [place] No MYCrearrangement and no fusion of MYC [...] only 1 biologic. Son Cheo Freire. Enjoys [employer], movies, race car, cards. [employer]. 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 Not a . ETOH: 1-3 beers per week Smoking: Quit 1985. Approximately 76-komv-huoc history Vaping or electronic cigarettes: denies Chewing [...] is a delightful 73-year old male in [facility]. He is accompanied to the clinic by [...] and BCL-2 protein (Double Expressor.) Flow cytometry ([id number]) supports this interpretation. FISH from [place] No MYC rearrangement and no fusion of MYC and IGH was observed, CD3 (SP7, Thermo Scientific) Background T-cells CD20 (L26, [place]) diffusely positive in Neoplastic B-cells PAX-5 (1EW, Leica) diffusely positive in Neoplastic B-cells CD10 (SP67, [place]) Negative BCL-6 (G/191E/A8, [place]) Positive MUM-1 (MUM1p, [employer]) Positive Myc (Y69, [employer]cam) Positive BCL-2 Oncoprotein (124, [place]) Positive Ki67 (MIB-1) (K2, Leica) Greater than 95% of cells in cycle Cyclin D1(SP4-R, [place]) Negative SAPPHIRE JOSE ([id number], Leica) Negative. DIAGNOSTICS: 01/25/23 ECHO after C#5 [...] 08/22/2023 left upper extremity ultrasound performed at [facility] Notable findings: In the left antecubital [...] listed above with ultrasound done today at [facility]. See report in scanned documents. This may represent a recurrence, but it could also be infectious. I spoke to Dr. Bruce Husain at [facility], who recommended large core needle biopsy. [...] keep. We will also do labs at [facility] on day of bio psies. Cardiac -Cheo [...] LVEF at 50-55%. --asymptomatic --repeat echo at [facility] 1 year post completion of therapy [...] - [address] at [facility] Surveillance every 3 mos for first year [...] AM EDT Office Visit Hematology/Oncology at [address] [address] Adrianne Ramon MD [facility] [address] [place] [address] Yael Merlos, KARLA [facility] [place] [address] 11/21/2023 10:00 AM EDT Infusion Hematology Oncology at [address] [address] 11/23/2023 11:00 AM EDT Office Visit Hematology [place] [address] Reynold Proctor MD [facility] [place] [address] 11/23/2023 1:00 PM EDT Appointment Hematology [place] [address] 11/23/2023 2:00 PM EDT Office Visit Hematology [place] [address] Micha Givens Jr., MD [facility] [place] [address] 11/23/2023 3:30 PM EDT Hospital [place] [address] Micha Givens Jr., MD [facility] [place] [address] documented as of this encounter Procedures Procedure Name Priority Date/Time Associated Diagnosis Comments CBC (WITH DIFF) Routine 08/22/2023 COMPREHENSIVE METABOLIC PANEL Routine 08/22/2023 documented in this encounter Results * NM PET CT Standard Plus Extremities and Head (09/06/2023 2:45 PM EDT) WORKSTATION ID [id number] RAD Anatomical Region Laterality Modality Positron Emissio [...] who have questions please contact the health primary health care nurse that requested your imaging first. ? Narrative [...] unspecified. TECHNIQUE: Procedure: Following IV injection of 98-ywuzys-6-deoxyglucose (FDG) a standard uptake of approximately 60 [...] unspecified. TECHNIQUE: Procedure: Following IV injection of 93-splvpr-3-deoxyglucose(FDG) a standard uptake of approximately 60 minutes, [...] patients who have questions please contactthe health primary health care nurse that requested your imaging first. Adrianne Ramon [...] Blood Culture No growth at 5 days. [facility] Blood ANTECUBITAL REGION STRUCTURE / Unknown 09/06/2023 10:12 AM EDT 09/06/2023 10:31 AM EDT Comment:Peripheral culture Narrative Resulting Agency Comment Spec In Lab Adrianne Ramon MD MICROBIOLOGY - B LOOD ORDERABLES [facility] [place] [address] * (ABNORMAL) Lactate Dehydrogenase (09/06/2023 10:12 AM EDT) Lactate Dehydrogenase 251(H) 110 - 220 unit/L [facility] Blood 09/06/2023 10:1 2 AM EDT 09/06/2023 10:16 AM EDT Narrative Resulting Agency Comment Spec In Lab Adrianne Ramon MD CHEMISTRY ORDERA BLES Performing Organization Address City/[facility]/ZIP Co de Phone Number [facility] [place] [place] [address] * (ABNORMAL) Comprehensive metabolic panel (non-fasting) (09/06/2023 10:12 AM EDT) Glucose 170 65 - 199 mg/dL [facility] Comment:Diabetes: >=200 mg/d L plus symptoms Blood Urea Nitrogen 15 10 - 20 mg/dL [facility] Creatinine 1.07 0.80 - 1.50 mg/dL [facility] Sodium 143 135 - 145 mmol/L [facility] Potassium 3.8 3.5 - 5.0 mmol/L [facility] Comment: Please note: ??Patients with WBC >100,000 may have falsely elevated Potassium levels. ??For accurate Potassium quantification in these patients send serum separator tube (gold top) for subsequent determinations. ??Contact the Clinical Chemistry Laboratory if there are any questions. Chloride 107 98 - 107 mmol/L [facility] Carbon Dioxide 25 22 - 31 mmol/L [facility] Anion Gap 11 5 - 15 mmol/L [facility] Calcium 9.2 8.5 - 10.5 mg/dL [facility] Protein, Total 6.1 6.1 - 8.0 g/dL [facility] Albumin 3.7 3.2 - 5.2 g/dL [facility] Aspartate Aminotransferase 37 0 - 39 unit/L [facility] Alanine Aminotransferase 61(H) 0 - 55 unit/L [facility] Alkaline Phosphatase 151(H) 40 - 130 unit/L [facility] Bilirubin, Total 0.3 0.2 - 1.3 mg/dL [facility] Est Glomerular Filtration Rate 72 >=60 mL/min/1. 73 m?? [facility] [...] CHEMISTRY ORDERA BLES [facility] [place] [address] * Comprehensive metabolic panel (non-fasting) (08/22/2023) Creatinine [...] lump documented in this encounter Care Teams Textile Artist Relationship Specialty Start Date End Date Frederick Meade MD [address] [place] [address] PCP - General Family Medicine 11/29/17 documented as of this encounter
--- OUTSIDE RECORDS SUMMARY | 2023-11-16 19:00 | XMS_ITS | Encounter Summary ---
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 of multiple regions Skin nodule Procedures NM PET CT Standard Plus Extremities and Head Adrianne Ramon MD [facility] [address] [place] [address] [place] [address] Referral ID Status Reason Start Date Expiration Date V isits Requested Visits Authorized [id number] Closed Specialty Service Requested 08/22/2023 02/21/2025 1 1 Encounter Details Date Type Department Care Team (Late st Contact Info) Description 09/06/2023 1:00 PM EDT - 09/06/2023 11:59 PM EDT Hospital Encounter [place] [address] Adrianne Ramon MD [facility] [address] [place] [address] Discharge Disposition: Home Social History [...] tablet Take 5 mg by mouth daily. [place] ULTRA BLUE TEST STRIP Strip USE TO [...] AM EDT Office Visit Hematology/Oncology at [address] [address] Adrianne Ramon MD [facility] [address] [place] [address] Yael Merlos APRN [facility] [place] [address] 11/21/2023 10:00 AM EDT Infusion Hematology Oncology at [address] [phone] 11/23/2023 11:00 AM EDT Office Visit Hematology [place] [address] Reynold Proctor MD [facility] [place] [address] 11/23/2023 1:00 PM EDT Appointment Hematology [place] [address] 11/23/2023 2:00 PM EDT Office Visit Hematology [place] [address] Micha Givens Jr., MD [facility] [address] [place] [address] 11/23/2023 3:30 PM EDT Hospital [place] [address] Micha Givens Jr., MD [facility] [address] [place] [address] documented as of this encounter Procedures Procedure [...] ST ORDERABLES [facility] [place] [address] * POCT Glucose (09/06/2023 10:41 AM EDT) Glucose, POC 142 65 - 199 mg/dL [facility] Comment: Supplemental ranges: <140 mg/dL before meals <180 mg/dL all other times of the day Blood 09/06/2023 10:4 1 AM EDT 09/06/2023 10:41 AM EDT Adrianne Ramon MD [facility] [place] [address] documented in this encounter Visit Diagnoses Not on filedocumented in this encounter Care Teams Temperature Inspector Relationship Specialty Start Date End Date Frederick Meade MD [address] [place] [address] [address] [place] [address] PCP - General Family Medicine 11/29/17 documented as of this encounter
--- OUTSIDE RECORDS SUMMARY | 2023-11-16 19:00 | XMS_ITS | Encounter Summary ---
Author Organization [place] [address] Care Team Providers Care Energy Risk Management Analyst Name Role Phone Frederick Meade MD Primary Care Provider [phone] [phone] Encounter Details Date Type Department Care Team [...] AM EDT Office Visit Hematology/Oncology at [address] [address] Adrianne Ramon MD [facility] DR HEMATOLOGY [place] [address] Yael Merlos APRN [facility] [address] HEMATOLOGY [place] [address] 11/21/2023 10:00 AM EDT Infusion Hematology Oncology at [address] [address] 11/23/2023 11:00 AM EDT Office Visit Hematology [place] [address] Reynold Proctor MD [facility] [place] [address] 11/23/2023 1:00 PM EDT Appointment Hematology [place] [address] 11/23/2023 2:00 PM EDT Office Visit [place]ematology [place] [address] Micha Givens Jr., MD [facility] HEMATOLOGY [place] [address] 11/23/2023 3:30 PM EDT [place] [address] Micha Givens Jr., MD [facility] DR HEMATOLOGY [place] [address] documented as of this encounter Visit Diagnoses Not on filedocumented in this encounter Care Teams Energy Risk Management Analyst Relationship Specialty Start Date End Date Frederick Meade MD [address] [place] [address] [address] [place] [address] PCP - General Family Medicine 11/29/17 documented as of this encounter
--- OUTSIDE RECORDS SUMMARY | 2023-11-16 19:00 | XMS_ITS | Encounter Summary ---
Author Organization [facility] [place] [address] Care Team Providers Care Silhouette Artist Name Role Phone Frederick Meade MD Primary Care Provider [phone] Encounter Details Date Type Department Care Team [...] AM EDT Office Visit Hematology/Oncology at [address] [address] Adrianne Ramon MD [facility] [place] [address] Yael Merlos APRN [facility] [place] [address] 11/21/2023 10:00 AM EDT Infusion Hematology Oncology at [address] [address] 11/23/2023 11:00 AM EDT Office Visit Hematology [place] [address] Reynold Proctor MD [facility] [place] [address] 11/23/2023 1:00 PM EDT Appointment Hematology [place] [address] 11/23/2023 2:00 PM EDT Office Visit Hematology [place] [address] Micha Givens Jr., MD [facility] [place] [address] 11/23/2023 3:30 PM EDT Hospital [place] [address] Micha Givens Jr., MD [facility] [place] [address] documented as of this encounter Visit Diagnoses Not on filedocumented in this encounter Care Teams Silhouette Artist Relationship Specialty Start Date End Date Frederick Meade MD [address] [place] [address] [address] [place] [address] PCP - General Family Medicine 11/29/17 documented as of this encounter
--- OUTSIDE RECORDS SUMMARY | 2023-11-16 19:00 | XMS_ITS | Encounter Summary ---
Author Organization [facility] [address] Care Team Providers Care Head Worker Name Role Phone Frederick Meade MD Primary Care Provider +1 [phone] Encounter Details Date Type Department Care Team [...] AM EDT Office Visit Hematology/Oncology at [address] [address] Adrianne Ramon MD [facility] DR HEMATOLOGY [place] [address] Yael Merlos APRN [facility] DR HEMATOLOGY [place] [address] 11/21/2023 10:00 AM EDT Infusion Hematology Oncology at [address] [address] 11/23/2023 11:00 AM EDT Office Visit [place] [address] Reynold Proctor MD [facility] [place] [address] 11/23/2023 1:00 PM EDT Appointment [place] [address] 11/23/2023 2:00 PM EDT Office Visit [place] [address] Micha Givens Jr., MD [facility] HEMATOLOGY [place] [address] 11/23/2023 3:30 PM EDT [place] [address] Micha Givens Jr., MD [facility] DR HEMATOLOGY [place] [address] documented as of this encounter Visit Diagnoses Not on filedocumented in this encounter Care Teams Head Worker Relationship Specialty Start Date End Date Frederick Meade MD [address] [place] [address] [address] [place] [address] PCP - General Family Medicine 11/29/17 documented as of this encounter
--- OUTSIDE RECORDS SUMMARY | 2023-11-16 19:00 | XMS_ITS | Encounter Summary ---
Author Organization [facility] [place] [address] Care Team Providers Care Ice Cream Mixer Name Role Phone Frederick Meade MD Primary Care Provider +1 [phone] Reason for Visit * Reason Comments Chemotherapy [...] TC CYCLOPHOSPHAMIDE, 100MG (CYTOXAN) Adrianne Ramon MD [facility] DR [place] [address] [facility] Infusion [address] [place] [phone] Referral ID Status Reason Start Date Expiration Date Visits Re quested Visits Authorized [id number] Closed 10/11/2022 10/11/2023 1 100 Encounter Details Date Type Department Care Team (Late st Contact Info) Description 01/31/2023 9:00 AM EST Infusion Hematology Oncology at [address] [address] Diffuse large B-cell lymphoma of [...] treatment. OBJECTIVE LAB DATA: completed today at [facility] Pre administration: Chemotherapy orders independently [...] AM EDT Office Visit Hematology/Oncology at [address] [phone] Adrianne Ramon MD [facility] DR [place] [address] Yael Merlos APRN [facility] DR [place] [address] 11/21/2023 10:00 AM EDT Infusion Hematology Oncology at [address] [address] 11/23/2023 11:00 AM EDT Office Visit Hematology [place] [address] Reynold Proctor MD [facility] [place] [address] 11/23/2023 1:00 PM EDT Appointment Hematology [place] [address] 11/23/2023 2:00 PM EDT Office Visit [place]ematology [place] [address] Micha Givens Jr., MD [facility] DR [place] [address] 11/23/2023 3:30 PM EDT Hospital [place] [address] Micha Givens Jr., MD [facility] [place] [address] documented as of this encounter Visit Diagnoses [...] 2 minutes is a recommendation from the photoengraving printer. Administer prior to chemotherapy., Routine Given 01/31/2023 [...] (IV) Procedure: Accessing Implanted Vascular Access Devices (004) procedure and/or Intravenous (IV) Job Aid: Adult Flushing & Catheter Care (8799) job aid for additional information regarding guidelines [...] Job Aid: Adult Flushing & Catheter Care (8226) job aid for additional information regarding guidelines [...] mL/hr documented in this encounter Care Teams Ice Cream Mixer Relationship Specialty Start Date End Date Frederick Meade MD [address] [facility] [place] [address] PCP - General Family Medicine 11/29/17 documented as of this encounter
--- OUTSIDE RECORDS SUMMARY | 2023-11-16 19:00 | XMS_ITS | Encounter Summary ---
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 Procedures CT Neck Soft Tissue w Contrast (Generic) Yael Merlos FOOD TRADES ASSISTANTS [facility] DR [place] [address] Referral ID Status Reason Start Date Expiration Date Visits Requested Visits Authorized [id number] Authorized Specialty Service Requested 06/13/2023 12/12/2024 1 1 * Diagnostic Test (Routine) - Authorized Specialty Diagnoses / Procedures Referred By Contac t Referred To Contact Radiology Diagnoses Diffuse large B-cell lymphoma of lymph nodes of multiple regions Procedures CT Chest Abdomen Pelvis w Contrast (Generic) Yael Merlos APRN [facility] DR [place] [address] Referral ID Status Reason Start Date Expiration Date Visits Requested Visits Authorized [id number] Authorized Specialty Service Requested 06/13/2023 12/12/2024 1 1 Reason for Visit * Reason Comments Follow-up Encounter Details Date Type Department Care Team (Late st Contact Info) Description 06/13/2023 11:00 AM EDT Office Visit Hematology/Oncology at [address] [address] Adrianne Ramon MD [facility] DR [place] [address] Yael Merlos APRN [facility] [place] [address] Diffuse large B-cell lymphoma of lymph nodes [...] this encounter Progress Notes * Yael Merlos, FOOD TRADES ASSISTANTS - 06/13/2023 11:00 AM EDT Hematology Clinic [facility] [place] [address] HEMATOLOGY PATIENT EVALUATION PROBLEM LIST: Patient Active [...] consultation, he saw [facility] and when to [facility]. No beds so sent to [facility] [...] using his bike. They are opening their [place] again inviting in close friends and family and beginning to extends back out in their social [place] which is quite reasonable at this point. No new health-related concerns. 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 6 mos of adjuvant Lupron. Total dose 79.2 Gy completed 01/26/15 09/29/22 Large B Cell lymphoma - biopsy of tongue and needle of cervical LN. FISH from [place] No MYCrearrangement and no fusion of MYC [...] only 1 biologic. Son Cheo Freire. Enjoys [employer], movies, race car, [employer]. 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 Not a . ETOH: 1-3 beers per week Smoking: Quit 1985. Approximately 08-yepg-grzu history Vaping or electronic cigarettes: denies Chewing [...] is a delightful 73-year old male in [facility]. He is accompanied to the clinic [...] and BCL-2 protein (Double Expressor.) Flow cytometry ([id number]) supports this interpretation. FISH from [place] No MYC rearrangement and no fusion of MYC and IGH was observed, CD3 (SP7, Thermo Scientific) Background T-cells CD20 (L26, Rena Lara) diffusely positive in Neoplastic B-cells PAX-5 (1EW, Leica) diffusely positive in Neoplastic B-cells CD10 (SP67, Rena Lara) Negative BCL-6 (G/191E/A8, Rena Lara) Positive MUM-1 (MUM1p, Dako) Positive Myc (Y69, Abcam) Positive BCL-2 Oncoprotein (124, Rena Lara) Positive Ki67 (MIB-1) (K2, Leica) Greater than 95% of cells in cycle Cyclin D1(SP4-R, Rena Lara) Negative SAPPHIRE JOSE (STW6958-H, Leica) Negative. DIAGNOSTICS: 01/25/23 ECHO after C#5 [...] undergo investigation with ultrasound. CT CAP at [facility], report and images have been [...] LVEF at 50-55%. --asymptomatic --repeat echo at [facility] 1 year post completion of [...] and counseling as appropriate. Yael Merlos, MSN, FOOD TRADES ASSISTANTS Nurse Practitioner Section of Hematology Copy Frederick Meade MD documented in this encounter Plan of Treatment Upcoming Encounters Date Type Department Care Team (Late st Contact Info) Description 11/21/2023 9:30 AM EDT Office Visit Hematology/Oncology at [address] [address] Adrianne Ramon MD [facility] DR [place] [address] Yael Merlos APRN [facility] DR [place] [address] 11/21/2023 10:00 AM EDT Infusion Hematology Oncology at [address] [address] 11/23/2023 11:00 AM EDT Office Visit Hematology [place] [address] Reynold Proctor MD [facility] [place] [address] 11/23/2023 1:00 PM EDT Appointment Hematology [place] [address] 11/23/2023 2:00 PM EDT Office Visit Hematology [place] [address] Micha Givens Jr., MD [facility] [place] [address] 11/23/2023 3:30 PM EDT Hospital [place] [address] Micha Givens Jr., MD [facility] DR [place] [address] Scheduled Orders Name Type Priority Associated Diagnoses [...] type documented in this encounter Care Teams Crematorium Operator Relationship Specialty Start Date End Date Frederick Meade MD [address] [place] [address] PCP - General Family Medicine 11/29/17 documented as of this encounter
--- OUTSIDE RECORDS SUMMARY | 2023-11-16 19:00 | XMS_ITS | Encounter Summary ---
Author Organization [facility] [place] [address] Care Team Providers Care Band Sawmill Operator Name Role Phone Frederick Meade MD Primary Care Provider [phone] [phone] Encounter Details Date Type Department Care Team [...] AM EDT Office Visit Hematology/Oncology at [address] [address] Adrianne Ramon MD [facility] DR [place] [address] Yael Merlos APRN [facility] DR [place] [address] 11/21/2023 10:00 AM EDT Infusion Hematology Oncology at [address] [address] 11/23/2023 11:00 AM EDT Office Visit Hematology [place] [address] Reynold Proctor MD [facility] [place] [address] 11/23/2023 1:00 PM EDT Appointment Hematology [place] [address] 11/23/2023 2:00 PM EDT Office Visit Hematology [place] [address] Micha Givens Jr., MD [facility] [place] [address] 11/23/2023 3:30 PM EDT [place] [address] Micha Givens Jr., MD [facility] DR [place] [address] documented as of this encounter Visit Diagnoses Not on filedocumented in this encounter Care Teams Band Sawmill Operator Relationship Specialty Start Date End Date Frederick Meade MD [address] [place] [address] [address] [place] [address] PCP - General Family Medicine 11/29/17 documented as of this encounter
--- OUTSIDE RECORDS SUMMARY | 2023-11-16 19:00 | XMS_ITS | Encounter Summary ---
[place] [address] Care Team Providers Care Adult Care Provider Name Role Phone Frederick Meade MD Primary Care Provider [phone] [phone] Reason for Visit * Diagnostic Test (Routine) - Closed Specialty Diagnoses / Procedures Referred By Contac t Referred To Contact Radiology Diagnoses Diffuse large B-cell lymphoma of lymph nodes of multiple regions Procedures NM PET CT Standard Plus Extremities and Head Yael Merlos DISTRIBUTION CENTER ASSISTANT [facility] HEMATOLOGY [place] [address] [place] [address] Referral ID Status Reason Start Date Expiration Date V isits Requested Visits Authorized [id number] Closed Specialty Service Requested 12/20/2022 06/19/2024 1 1 Encounter Details Date Type Department Care Team (Latest Contact Info) Description 01/05/2023 7:19 AM EST - 01/05/2023 11:59 PM [facility] Hospital Encounter [place] [address] Yael Merlos DISTRIBUTION CENTER ASSISTANT [facility] HEMATOLOGY [place] [address] Discharge Disposition: Home Social History [...] tablet Take 5 mg by mouth daily. myEDmatch ULTRA BLUE TEST STRIP Strip USE TO [...] AM EDT Office Visit Hematology/Oncology at [address] [address] Adrianne Ramon MD [facility] DR HEMATOLOGY [place] [address] Yael Merlos APRN [facility] HEMATOLOGY [place] [address] 11/21/2023 10:00 AM EDT Infusion Hematology Oncology at [address] [address] 11/23/2023 11:00 AM EDT Office Visit Hematology [place] [address] Reynold Proctor MD [facility] [place] [address] 11/23/2023 1:00 PM EDT Appointment Hematology [place] [address] 11/23/2023 2:00 PM EDT Office Visit Hematology [place] [address] Micha Givens Jr., MD [facility] DR HEMATOLOGY [place] [address] 11/23/2023 3:30 PM EDT Hospital [place] [address] Micha Givens Jr., MD [facility] DR HEMATOLOGY [place] [address] documented as of this encounter Procedures Procedure [...] EST 01/05/2023 7:26 AM EST Yael Merlos DISTRIBUTION CENTER ASSISTANT POINT OF CARE TEST ORDERABLES [facility] [place] [place] [address] documented in this encounter Visit Diagnoses Not on filedocumented in this encounter Care Teams Adult Care Provider Relationship Specialty Start Date End Date Frederick Meade MD [address] [place] [address] PCP - General Family Medicine 11/29/17 documented as of this encounter
--- OUTSIDE RECORDS SUMMARY | 2023-11-16 19:00 | XMS_ITS | Encounter Summary ---
[place] [address] Care Team Providers Care Bowling Alley Floors Installer Name Role Phone Frederick Meade MD Primary Care Provider [phone] [phone] Encounter Details Date Type Department Care Team (Late st Contact Info) Description 03/15/2023 Orders Only Radiology [place] [address] [place] [address] Aaron Husain MD [facility] [place] [address] Social History Tobacco Use Types Packs/Day Years [...] Mediport Placement 10/17/[address] 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 Tobacco Use Smoking status: Former Packs/day: [...] AM EDT Office Visit Hematology/Oncology at [address] [phone] Adrianne Ramon MD [facility] DR HEMAT[place]Y [place] [address] Yael Merlos APRN [facility] DR [place] [address] 11/21/2023 10:00 AM EDT Infusion Hematology Oncology at [address] [address] 11/23/2023 11:00 AM EDT Office Visit Hematology and Oncology at [address] Reynold Proctor MD [facility] [place] [address] 11/23/2023 1:00 PM EDT Appointment Hematology and Oncology at [address] 11/23/2023 2:00 PM EDT Office Visit Hematology [place] [address] Micha Givens Jr., MD [facility] DR [place] [address] 11/23/2023 3:30 PM EDT Hospital Encounter MRI at [place] [phone] Micha Givens Jr., MD [facility] DR [place] [address] documented as of this encounter Visit Diagnoses Not on filedocumented in this encounter Care Teams Bowling Alley Floors Installer Relationship Specialty Start Date End Date Frederick Meade MD [address] [place] [address] [address] [place] [address] PCP - General Family Medicine 11/29/17 documented as of this encounter
--- OUTSIDE RECORDS SUMMARY | 2023-11-16 19:00 | XMS_ITS | Encounter Summary ---
[place] [address] Care Team Providers Care Company Doctor Name Role Phone Frederick Meade MD Primary Care Provider [phone] [phone] Reason for Referral * Diagnostic Test (Routine) - Closed Specialty Diagnoses / Procedures Referred By Contac t Referred To Contact Radiology Diagnoses Diffuse large B-cell lymphoma of lymph nodes of multiple regions Procedures NM PET CT Skull Base to Mid-thigh Yael Merlos URANIUM PROCESSING SUPERVISOR [facility] [address] [place] [address] [place] [address] Referral ID Status Reason Start Date Expiration Date V isits Requested Visits Authorized [id number] Closed Specialty Service Requested 01/15/2023 07/15/2024 1 1 Reason for Visit * Diagnostic Test (Routine) - Closed Specialty Diagnoses / Procedures Referred By Contac t Referred To Contact Radiology Diagnoses Diffuse large B-cell lymphoma of lymph nodes of multiple regions Procedures NM PET CT Skull Base to Mid-thigh Yael Merlos URANIUM PROCESSING SUPERVISOR [facility] [place] [address] [place] [address] Referral ID Status Reason Start Date Expiration Date V isits Requested Visits Authorized [id number] Closed Specialty Service Requested 01/15/2023 07/15/2024 1 1 Encounter Details Date Type Department Care Team (Latest Contact Info) Description 03/06/2023 7:52 AM EST - 03/06/2023 11:59 PM EST Hospital Encounter [place] [address] Yael Merlos APRN [facility] DR [place] [address] Diffuse large B-cell lymphoma of lymph nodes [...] AM EDT Office Visit Hematology/Oncology at [address] [address] Adrianne Ramon MD [facility] [address] [place] [address] Yael Merlos, URANIUM PROCESSING SUPERVISOR [facility] DR [place] [address] 11/21/2023 10:00 AM EDT Infusion Hematology Oncology at [address] [address] 11/23/2023 11:00 AM EDT Office Visit Hematology [place] [address] Reynold Proctor MD [facility] [address] 11/23/2023 1:00 PM EDT Appointment Hematology [place] [address] 11/23/2023 2:00 PM EDT Office Visit Hematology [place] [address] Micha Givens Jr., MD [facility] DR [place] [address] 11/23/2023 3:30 PM EDT Hospital [place] [address] Micha Givens Jr., MD [facility] DR [place] [address] documented as of this encounter Procedures Procedure [...] have questions please contact the health care coordination manager that requested your imaging first. ? Narrative 03/08/2023 11:33 AM EST EXAMINATION: NM PET CT STANDARD SKULL BASE TO MID-THIGH CLINICAL HISTORY: Hematologic malignancy, assess treatment response History of diffuse large B-cell lymphoma, status post 6 cycles of RCHOP. TECHNIQUE: Following IV injection of 63-gqrfkj-3-deoxyglucose (FDG) a standard uptake of approximately 60 [...] of RCHOP. TECHNIQUE: Following IV injection of 54-rsrexi-2-deoxyglucose (FDG) astandard uptake of approximately 60 minutes, [...] who have questions please contactthe health care coordination manager that requested your imaging first. Yael Merlos URANIUM PROCESSING SUPERVISOR IMG PET ORDERABLES documented in this encounter [...] Port documented in this encounter Care Teams Company Doctor Relationship Specialty Start Date End Date Frederick Meade MD [address] [facility] [place] [address] PCP - General Family Medicine 11/29/17 documented as of this encounter
--- OUTSIDE RECORDS SUMMARY | 2023-11-16 19:00 | XMS_ITS | Encounter Summary ---
Author Organization [facility] [place] [address] Care Team Providers Care Platen Press Operator Apprentice Name Role Phone Frederick Meade MD Primary Care Provider [phone] Encounter Details Date Type Department Care Team [...] AM EDT Office Visit Hematology/Oncology at [address] [address] Adrianne Ramon MD [facility] DR HEMATOLOGY [place] [address] Yael Merlos APRN [facility] DR HEMATOLOGY [place] [address] 11/21/2023 10:00 AM EDT Infusion Hematology Oncology at [address] [address] 11/23/2023 11:00 AM EDT Office Visit Hematology [place] [address] Renyold Proctor MD [facility] [place] [place] [address] 11/23/2023 1:00 PM EDT Appointment Hematology [place] [address] 11/23/2023 2:00 PM EDT Office Visit Hematology [place] [address] Micha Givens Jr., MD [facility] HEMATOLOGY [place] [address] 11/23/2023 3:30 PM EDT [place] [address] Micha Givens Jr., MD [facility] DR HEMATOLOGY [place] [address] documented as of this encounter Visit Diagnoses Not on filedocumented in this encounter Care Teams Platen Press Operator Apprentice Relationship Specialty Start Date End Date Frederick Meade MD [address] [place] [address] [address] [place] [address] PCP - General Family Medicine 11/29/17 documented as of this encounter
--- OUTSIDE RECORDS SUMMARY | 2023-11-16 19:00 | XMS_ITS | Encounter Summary ---
Author Organization [facility] Address [facility] [place] [address] Care Team Providers Care Product Inspection Supervisor Name Role Phone Frederick Meade MD Primary Care Provider [phone] [phone] Encounter Details Date Type Department Care Team (Late st Contact Info) Description 01/31/2023 Notes Only Hematology/Oncology at [address] [address] Shelley Cason, [facility] OFFICE OF CARE MANAGEMENT Social [...] did not identify any new needs today. POWERHOUSE ATTENDANT will continue as a resource for them. Brief assessment Supportive Counseling documented in this encounter Plan of Treatment Upcoming Encounters Date Type Department Care Team (Late st Contact Info) Description 11/21/2023 9:30 AM EDT Office Visit Hematology/Oncology at [address] [address] Adrianne Ramon MD [facility] HEMATOLOGY [place] [address] Yael Merlos APRN [facility] HEMATOLOGY [place] [address] 11/21/2023 10:00 AM EDT Infusion Hematology Oncology at [address] [address] 11/23/2023 11:00 AM EDT Office Visit Hematology [place] [phone] Reynold Proctor MD [facility] [place] [address] 11/23/2023 1:00 PM EDT Appointment Hematology and Oncology at [place] [phone] 11/23/2023 2:00 PM EDT Office Visit Hematology and Oncology at [place] [phone] Micha Givens Jr., MD [facility] DR [place] [address] 11/23/2023 3:30 PM EDT Hospital Encounter MRI at [place] [phone] Micha Givens Jr., MD [facility] DR [place] [address] documented as of this encounter Visit Diagnoses Not on filedocumented in this encounter Care Teams Product Inspection Supervisor Relationship Specialty Start Date End Date Frederick Meade MD [address] [place] [address] [address] [facility] 1 [place] [address] PCP - General Family Medicine 11/29/17 documented as of this encounter
--- OUTSIDE RECORDS SUMMARY | 2023-11-16 19:00 | XMS_ITS | Encounter Summary ---
Author Organization [facility] Address [facility] [place] [address] Care Team Providers Care Coder Name Role Phone Frederick Meade MD Primary Care Provider [phone] Encounter Details Date Type Department Care Team (Late st Contact Info) Description 01/10/2023 8:30 AM EST Office Visit Hematology/Oncology at [address] [address] Ardianne Ramon MD [facility] DR HEMATOLOGY [place] [address] Diffuse large B-cell lymphoma of lymph nodes [...] - 01/10/2023 8:30 AM EST Hematology Clinic [facility] [place] [address] HEMATOLOGY PATIENT EVALUATION Patient Active Problem [...] in [facility] and when to [facility]. No beds so sent to [facility] for [address] [...] - unclear cause. - last COLO at [facility] was 01/17/2012. INTERIM HISTORY OF PRESENT [...] and needle of cervical LN. FISH from [place] No MYCrearrangement and no fusion of MYC [...] only 1 biologic. Son Cheo Freire. Enjoys [employer], [employer], [employer], [employer]. [employer]. 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 Not a . ETOH: 1-3 beers per week Smoking: Quit 1985. Approximately 54-[id number] history Vaping or electronic cigarettes: denies Chewing [...] is a delightful 72-year old male in [facility]. He is accompanied to the clinic [...] and BCL-2 protein (Double Expressor.) Flow cytometry ([id number]) supports this interpretation. FISH from [place] No MYC rearrangement and no fusion of MYC and IGH was observed, CD3 (SP7, Thermo Scientific) Background T-cells CD20 (L26, [place]) diffusely positive in Neoplastic B-cells PAX-5 (1EW, Leica) diffusely positive in Neoplastic B-cells CD10 (SP67, [place]) Negative BCL-6 (G/191E/A8, [place]) Positive MUM-1 (MUM1p, Dako) Positive Myc (Y69, Abcam) Positive BCL-2 Oncoprotein (124, [place]) Positive Ki67 (MIB-1) (K2, Leica) Greater than 95% of cells in cycle Cyclin D1(SP4-R, [place]) Negative SAPPHIRE JOSE ([id number], Leica) Negative. DIAGNOSTICS: 11/28/22 ECHO after C#2 [...] investigation with ultrasound. CT CAP at [facility], report and images have been requested. [...] Jan 2023 - booked for 01/25/23 at [facility] Recommend COVID vaccine though he is aware that he may not have a robust response due to ongoing chemotherapy with B-cell depletion. He has already received influenza vaccine. Final PET week of Mar 05 at [facility] with appt 03/14/22 I discussed all of the above with the patient and all of his questions were answered. Support and counseling as appropriate. Copy Frederick Meade MD documented in this encounter Plan of Treatment Upcoming Encounters Date Type Department Care Team (Late st Contact Info) Description 11/21/2023 9:30 AM EDT Office Visit Hematology/Oncology at [address] [phone] Adrianne Ramon MD [facility] DR HEMATOLOGY [place] [address] Yael Merlos, KARLA [facility] DR HEMATOLOGY [place] [address] 11/21/2023 10:00 AM EDT Infusion Hematology Oncology at [address] [address] 11/23/2023 11:00 AM EDT Office Visit Hematology [place] [address] Reynold Proctor MD [facility] [place] [address] 11/23/2023 1:00 PM EDT Appointment Hematology [place] [address] 11/23/2023 2:00 PM EDT Office Visit Hematology [place] [phone] Micha Givens Jr., MD [facility] HEMATOLOGY [place] [address] 11/23/2023 3:30 PM EDT Hospital Encounter MRI at [facility] [place] [phone] Micha Givens Jr., MD [facility] HEMATOLOGY [place] [address] documented as of this encounter Procedures Procedure [...] regions documented in this encounter Care Teams Coder Relationship Specialty Start Date End Date Frederick Meade MD [address] [place], [place] [address]Y [facility] 1 [place] [address] PCP - General Family Medicine 11/29/17 documented as of this encounter
--- OUTSIDE RECORDS SUMMARY | 2023-11-16 19:00 | XMS_ITS | Encounter Summary ---
[place] [address] Care Team Providers Care Cloth Colorer Name Role Phone Frederick Meade MD Primary Care Provider [phone] [phone] Reason for Referral * Diagnostic Test (Routine) - Closed Specialty Diagnoses / Procedures Referred By Contac t Referred To Contact Radiology Diagnoses Diffuse large B-cell lymphoma of lymph nodes of multiple regions Procedures IR Mediport Removal Yael Merlos FLOUR DISTRIBUTOR [facility] [place] [address] [facility] [place] [address] Referral ID Status Reason Start Date Expiration Date V isits Requested Visits Authorized [id number] Closed Specialty Service Requested 03/15/2023 09/12/2024 1 1 Encounter Details Date Type Department Care Team (Late st Contact Info) Description 03/15/2023 Orders Only Hematology [place] [address] Yael Merlos FLOUR DISTRIBUTOR [facility] [place] [address] Diffuse large B-cell lymphoma of [...] AM EDT Office Visit Hematology/Oncology at [address] [address] [facility] [place] [address] Yael Merlos, FLOUR DISTRIBUTOR [facility] [place] [address] 11/21/2023 10:00 AM EDT Infusion Hematology Oncology at [address] [address] 11/23/2023 11:00 AM EDT Office Visit [place]ematology [place] [address] [facility] [place] [address] 11/23/2023 1:00 PM EDT Appointment Hematology and Oncology at [place] [phone] 11/23/2023 2:00 PM EDT Office Visit Hematology [place] [phone] Micha Givens Jr., MD [facility] DR [place] [address] 11/23/2023 3:30 PM EDT Hospital Encounter MRI at [place] [phone] Micha Givens Jr., MD [facility] [place] [address] documented as of this encounter Results * [...] venous port with all components accounted for. 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
--- OUTSIDE RECORDS SUMMARY | 2023-11-16 19:00 | XMS_ITS | Encounter Summary ---
Author Organization [facility] [place] [address] Care Team Providers Care Timber Treating Tank Operator Name Role Phone Frederick Meade MD Primary Care Provider [phone] Encounter Details Date Type Department Care Team [...] AM EDT Office Visit Hematology/Oncology at [address] [address] Adrianne Ramon MD [facility] DR HEMATOLOGY [place] [address] Yael Merlos APRN [facility] DR HEMATOLOGY [place] [address] 11/21/2023 10:00 AM EDT Infusion Hematology Oncology at [address] [address] 11/23/2023 11:00 AM EDT Office Visit Hematology [place] [phone] Reynold Proctor MD [facility] [place] [place] [address] 11/23/2023 1:00 PM EDT Appointment Hematology [place] [phone] 11/23/2023 2:00 PM EDT Office Visit Hematology [place] [phone] Micha Givens Jr., MD [facility] HEMATOLOGY [place] [address] 11/23/2023 3:30 PM EDT Hospital [place] [address] Micha Givens Jr., MD [facility] DR HEMATOLOGY [place] [address] documented as of this encounter Visit Diagnoses Not on filedocumented in this encounter Care Teams Timber Treating Tank Operator Relationship Specialty Start Date End Date Frederick Meade MD [address] [place] [address] [address] [place] [address] PCP - General Family Medicine 11/29/17 documented as of this encounter
--- OUTSIDE RECORDS SUMMARY | 2023-11-16 19:00 | XMS_ITS | Encounter Summary ---
[place] [address] Care Team Providers Care Supervisor Carton And Can Supply Name Role Phone Frederick Meade MD Primary Care Provider [phone] Reason for Referral * Diagnostic Test (Routine) - Closed Specialty Diagnoses / Procedures Referred By Contac t Referred To Contact Radiology Diagnoses Diffuse large B-cell lymphoma of lymph nodes of multiple regions Skin nodule Procedures NM PET CT Standard Plus Extremities and Head Adrianne Ramon MD [facility] DR [place]AT[place] [address] [place] [address] Referral ID Status Reason Start Date Expiration Date V isits Requested Visits Authorized [id number] Closed Specialty Service Requested 08/22/2023 02/21/2025 1 1 Reason for Visit * Diagnostic Test (Routine) - Closed Specialty Diagnoses / Procedures Referred By Contac t Referred To Contact Radiology Diagnoses Diffuse large B-cell lymphoma of lymph nodes of multiple regions Skin nodule Procedures NM PET CT Standard Plus Extremities and Head Adrianne Ramon MD [facility] DR HEMATOLOG[place] [address] [place] [address] Referral ID Status Reason Start Date Expiration Date V isits Requested Visits Authorized [id number] Closed Specialty Service Requested 08/22/2023 02/21/2025 1 1 Encounter Details Date Type Department Care Team (Jaciel teixeira Contact Info) Description 09/06/2023 12:59 PM EDT Hospital Encounter [place] [address] [facility] DR [place] [address] Diffuse large B-cell lymphoma of lymph nodes [...] AM EDT Office Visit Hematology/Oncology at [address] [phone] [facility] [place] [address] [facility] [place] [address] 11/21/2023 10:00 AM EDT Infusion Hematology Oncology at [address] [address] 11/23/2023 11:00 AM EDT Office Visit Hematology [place] [address] [facility] [place] [address] 11/23/2023 1:00 PM EDT Appointment Hematology [place] [phone] 11/23/2023 2:00 PM EDT Office Visit Hematology [place] [phone] Micha Givens Jr., MD [facility] DR [place] [address] 11/23/2023 3:30 PM EDT Hospital Encounter [place] [phone] Micha Givens Jr., MD [facility] DR [place]AT[place] [address] documented as of this encounter Procedures Procedure Name Priority Date/Time Associated Diagnosis Comments NM PET CT STANDARD PLUS EXTREMITIES AND HEAD Routine 09/06/2023 2:45 PM EDT Diffuse large B-cell lymphoma of lymph nodes of multiple regions Skin nodule documented in this encounter Results * NM PET CT Standard Plus Extremities and Head (09/06/2023 2:45 PM EDT) WORKSTATION ID [id number] [facility] Anatomical Region Laterality Modality Positron Emissio n [...] have questions please contact the health healthcare analyst that requested your imaging first. ? [...] unspecified. TECHNIQUE: Procedure: Following IV injection of 04-gphldd-6-deoxyglucose (FDG) a standard uptake of approximately 60 [...] unspecified. TECHNIQUE: Procedure: Following IV injection of 71-npftys-3-deoxyglucose(FDG) a standard uptake of approximately 60 minutes, [...] who have questions please contactthe health healthcare analyst that requested your imaging first. Adrianne Ramon [...] Arm documented in this encounter Care Teams Supervisor [employer] Relationship Specialty Start Date End Date Frederick Meade MD [address] [place] [address] PCP - General Family Medicine 11/29/17 documented as of this encounter
--- OUTSIDE RECORDS SUMMARY | 2023-11-16 19:01 | XMS_ITS | Encounter Summary ---
Author Organization [facility] [place] [address] Care Team Providers Care Solid Waste Landfill Technician Name Role Phone Frederick Meade MD Primary Care Provider [phone] Encounter Details Date Type Department Care Team [...] AM EDT Office Visit Hematology/Oncology at [address] [address] Adrianne Ramon MD [facility] DR [place] [address] Yael Merlos APRN [facility] DR [place] [address] 11/21/2023 10:00 AM EDT Infusion Hematology Oncology at [address] [address] 11/23/2023 11:00 AM EDT Office Visit Hematology [place] [phone] Reynold Proctor MD [facility] [place] [address] 11/23/2023 1:00 PM EDT Appointment Hematology [place] [address] 11/23/2023 2:00 PM EDT Office Visit Hematology [place] [phone] Micha Givens Jr., MD [facility] [place] [address] 11/23/2023 3:30 PM EDT Hospital [place] [address] Micha Givens Jr., MD [facility] DR [place] [address] documented as of this encounter Visit Diagnoses Not on filedocumented in this encounter Care Teams Solid Waste Landfill Technician Relationship Specialty Start Date End Date Frederick Meade MD [address] [place] [address] [address] [place] [address] PCP - General Family Medicine 11/29/17 documented as of this encounter
--- OUTSIDE RECORDS SUMMARY | 2023-11-16 19:01 | XMS_ITS | Encounter Summary ---
Author Organization [facility] Address [facility] [place] [address] Care Team Providers Care Sleeve Setter Name Role Phone Frederick Meade MD Primary Care Provider [phone] Encounter Details Date Type Department Care Team (Late st Contact Info) Description 11/29/2022 Notes Only Hematology/Oncology at [address] [address] Shelley Cason, [facility] OFFICE OF CARE MANAGEMENT Social History Tobacco [...] the team is looking at more affordableoptions. INSTRUMENT WORKER does not have a solution to the cost but offered information about the [facility] [employer] which if approved would send a monthly [...] AM EDT Office Visit Hematology/Oncology at [address] [address] Adrianne Ramon MD [facility] [place] [address] Yael Merlos, WASTE WATER OPERATOR [facility] [place] [address] 11/21/2023 10:00 AM EDT Infusion Hematology Oncology at [address] [address] 11/23/2023 11:00 AM EDT Office Visit Hematology and Oncology at [place] [phone] Reynold Proctor MD [facility] [place] [address] 11/23/2023 1:00 PM EDT Appointment Hematology [place] [address] 11/23/2023 2:00 PM EDT Office Visit Hematology and Oncology at [place] [phone] Micha Givens Jr., MD [facility] DR [place] [address] 11/23/2023 3:30 PM EDT Hospital Encounter MRI at [place] [phone] Micha Givens Jr., MD [facility] [address] [place] [address] documented as of this encounter Visit Diagnoses Not on filedocumented in this encounter Care Teams Sleeve Setter Relationship Specialty Start Date End Date Frederick Meade MD [address] [place] [address] [address] [place] [address] PCP - General Family Medicine 11/29/17 documented as of this encounter
--- OUTSIDE RECORDS SUMMARY | 2023-11-16 19:01 | XMS_ITS | Encounter Summary ---
Author Organization [facility] [place] [address] Care Team Providers Care Flash Ranging Crewmember Name Role Phone Frederick Meade MD Primary Care Provider [phone] Reason for Visit * Reason Onset Date Comments Follow-up 11/01/2022 Encounter Details Date Type Department Care Team (Late st Contact Info) Description 11/01/2022 Telephone Hematology/Oncology at [address] [address] Polly Orellana RN Follow-up Social [...] needs them to go to [facility] next Sunday to see Dr. Barbosa. They feel if things continue to get better therewill be no issue, they will let us know if things change. documented in this encounter Plan of Treatment Upcoming Encounters Date Type Department Care Team (Late st Contact Info) Description 11/21/2023 9:30 AM EDT Office Visit Hematology/Oncology at [address] [phone] Adrianne Ramon MD [facility] HEMATOLOGY [place] [address] Yael Merlos, QUEEN[employer]SEL [facility] HEMATOLOGY [place] [address] 11/21/2023 10:00 AM EDT Infusion Hematology Oncology at [address] [phone] 11/23/2023 11:00 AM EDT Office Visit Hematology and Oncology at [place] [phone] Reynold Proctor MD [facility] [place] [address] 11/23/2023 1:00 PM EDT Appointment Hematology and Oncology at [place] [address] 11/23/2023 2:00 PM EDT Office Visit Hematology and Oncology at [place] [address] Micha Givens Jr., MD [facility] [place] [address] 11/23/2023 3:30 PM EDT Hospital [place] [address] Micha Givens Jr., MD [facility] [place] [address] documented as of this encounter Visit Diagnoses Not on filedocumented in this encounter Care Teams Flash Ranging Crewmember Relationship Specialty Start Date End Date Frederick Meade MD [address] [place] [address] PCP - General Family Medicine 11/29/17 documented as of this encounter
--- OUTSIDE RECORDS SUMMARY | 2023-11-16 19:01 | XMS_ITS | Encounter Summary ---
[place] [address] Care Team Providers Care Intelligence Agent Name Role Phone Frederick [place] MD Primary Care Provider [phone] [phone] Reason for Referral * Diagnostic Test (Routine) - Closed Specialty Diagnoses / Procedures Referred By Contac t Referred To Contact Radiology Diagnoses Diffuse large B-cell lymphoma of lymph nodes of multiple regions Procedures NM PET CT Standard Plus Extremities and Head Yael Merlos APRN [facility] [address] [place] [address] [place] [address] Referral ID Status Reason Start Date Expiration Date V isits Requested Visits Authorized [id number] Closed Specialty Service Requested 12/20/2022 06/19/2024 1 1 Reason for Visit * Diagnostic Test (Routine) - Closed Specialty Diagnoses / Procedures Referred By Contac t Referred To Contact Radiology Diagnoses Diffuse 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 Procedures NM PET CT Standard Plus Extremities and Head Yael Merlos APRN [facility] [place] [address] [place] [address] Referral ID Status Reason Start Date Expiration Date V isits Requested Visits Authorized [id number] Closed Specialty Service Requested 12/20/2022 06/19/2024 1 1 Encounter Details Date Type Department Care Team (Latest Contact Info) Description 01/05/2023 7:19 AM EST - 01/05/2023 11:59 PM EST Hospital Encounter Nuclear Medicine at [facility] [place] [phone] Yael Merlos APRN [facility] DR [place] [address] Diffuse large B-cell lymphoma of lymph nodes [...] AM EDT Office Visit Hematology/Oncology at [address] [address] Adrianne Ramon MD [facility] [place] [address] Yael Merlos APRN [facility] [place] [address] 11/21/2023 10:00 AM EDT Infusion Hematology Oncology at [address] [phone] 11/23/2023 11:00 AM EDT Office Visit Hematology and Oncology at [place] [phone] Reynold Proctor MD [facility] [place] [address] 11/23/2023 1:00 PM EDT Appointment Hematology and Oncology at [place] [phone] 11/23/2023 2:00 PM EDT Office Visit Hematology [place] [address] Micha Givens Jr., MD [facility] [place] [address] 11/23/2023 3:30 PM EDT Hospital [place] [address] Micha Givens Jr., MD [facility] [place] [address] documented as of this encounter Procedures Procedure [...] have questions please contact the health career manager that requested your imaging first. ? Electronically signed by: Fletcher Duckworth MD, [facility] ([phone]), at 01/05/2023 9:50 AM Narrative 01/05/2023 9:50 AM EST EXAMINATION: NM PET CT STANDARD PLUS EXTREMITIES AND HEAD CLINICAL HISTORY: Hematologic malignancy, assess treatment response Non-Hodgkin lymphoma TECHNIQUE: Procedure: Following IV injection of 74-pilgdl-4-deoxyglucose (FDG) a standard uptake of approximately 60 [...] lymphoma TECHNIQUE: Procedure: Following IV injection of 86-sigpmu-8-deoxyglucose(FDG) a standard uptake of approximately 60 minutes, [...] of the left upper lobe (image 131 [id number]). These foci are new since the prior [...] who have questions please contactthe health career manager that requested your imaging first. Electronically signed by: Fletcher Duckworth MD, [facility]([phone]), at 01/05/2023 9:50 AM Yael Lugo Chelita NIGHT ASSISTANT IMG PET ORDERABLES documented in this encounter [...] Arm documented in this encounter Care Teams Intelligence Agent Relationship Specialty Start Date End Date Frederick Meade MD [address] [place] [address] PCP - General Family Medicine 11/29/17 documented as of this encounter
--- OUTSIDE RECORDS SUMMARY | 2023-11-16 19:01 | XMS_ITS | Encounter Summary ---
[place] [address] Care Team Providers Care Brand Analyst Name Role Phone Frederick [place] MD Primary Care Provider [phone] Encounter Details Date Type Department Care Team (Late st Contact Info) Description 10/25/2022 Telephone Hematology [place] [phone] Davey Magdaleno MD [facility] DR HEMATOLOGY/[place] [address] Social History Tobacco Use Types Packs/Day Years [...] saw Dr. Ramon, on 10/12 and started [facility] in [facility] on 10/18 with neupogen. I am [...] AM EDT Office Visit Hematology/Oncology at [address] [address] Adrianne Ramon MD [facility] [address] [place] [address] Yael Merlos APRN [facility] DR [place] [address] 11/21/2023 10:00 AM EDT Infusion Hematology Oncology at [address] [address] 11/23/2023 11:00 AM EDT Office Visit Hematology [place] [address] Reynold Proctor MD [facility] [place] [address] 11/23/2023 1:00 PM EDT Appointment Hematology [place] [address] 11/23/2023 2:00 PM EDT Office Visit Hematology [place] [address] Micha Givens Jr., MD [facility] [address] [place] [address] 11/23/2023 3:30 PM EDT Hospital [place] [address] Micha Givens Jr., MD [facility] [address] [place] [address] documented as of this encounter Visit Diagnoses Not on filedocumented in this encounter Care Teams Brand Analyst Relationship Specialty Start Date End Date Frederick Meade MD [address] [place] [address] [address] [place] [address] PCP - General Family Medicine 11/29/17 documented as of this encounter
--- OUTSIDE RECORDS SUMMARY | 2023-11-16 19:01 | XMS_ITS | Encounter Summary ---
Author Organization [facility] [place] [address] Care Team Providers Care Buncher Hand Name Role Phone Frederick [place] MD Primary Care Provider [phone] Encounter Details Date Type Department Care Team (Late st Contact Info) Description 10/20/2022 Telephone Hematology/Oncology at [address] [address] Maeve Nicole, RN Social History [...] Education provided: SEE ABOVE Plan: Reinforced to patient/care-lead caregiver to call facility 11/09 with any new/worsening signs and symptoms orconcerns or questions. Phone number provided. Pt verbalized understanding and is in agreement with plan. documented in this encounter Plan of Treatment Upcoming Encounters Date Type Department Care Team (Late st Contact Info) Description 11/21/2023 9:30 AM EDT Office Visit Hematology/Oncology at [address] [phone] Adrianne Ramon MD [facility] [address] [place] [address] Yael Merlos APRN [facility] [address] [place] [address] 11/21/2023 10:00 AM EDT Infusion Hematology Oncology at [address] [phone] 11/23/2023 11:00 AM EDT Office Visit Hematology [place] [phone] Reynold Proctor MD [facility] [place] [address] 11/23/2023 1:00 PM EDT Appointment Hematology [place] [phone] 11/23/2023 2:00 PM EDT Office Visit Hematology [place] [phone] Micha Givens Jr., MD [facility] [place] [address] 11/23/2023 3:30 PM EDT Hospital [place] [address] Micha Givens Jr., MD [facility] [address] [place] [address] documented as of this encounter Visit Diagnoses Not on filedocumented in this encounter Care Teams Buncher Hand Relationship Specialty Start Date End Date Frederick [place] MD [address] [place] [address] PCP - General Family Medicine 11/29/17 documented as of this encounter
--- OUTSIDE RECORDS SUMMARY | 2023-11-16 19:01 | XMS_ITS | Encounter Summary ---
Author Organization [facility] [place] [address] Care Team Providers Care Replenishment Analyst Name Role Phone Frederick [place] MD Primary Care Provider [phone] Encounter Details Date Type Department Care Team (Late st Contact Info) Description 11/15/2022 12:30 PM EDT Office Visit Hematology/Oncology at [address] [address] Adrianne Ramon MD [facility] DR [place] [address] Yael Merlos APRN [facility] [place] [address] Diffuse large B-cell lymphoma of lymph nodes [...] AM EDT Office Visit Hematology/Oncology at [address] [phone] Adrianne Ramon MD [facility] [place] [address] Yael Merlos APRN [facility] [place] [address] 11/21/2023 10:00 AM EDT Infusion Hematology Oncology at [address] [phone] 11/23/2023 11:00 AM EDT Office Visit Hematology [place] [phone] Reynold Proctor MD [facility] [place] [address] 11/23/2023 1:00 PM EDT Appointment Hematology [place] [phone] 11/23/2023 2:00 PM EDT Office Visit Hematology [place] [phone] Micha Givens Jr., MD [facility] [place] [address] 11/23/2023 3:30 PM EDT Hospital [place] [address] Micha Givens Jr., MD [facility] [address] [place] [address] documented as of this encounter Procedures Procedure [...] regions documented in this encounter Care Teams Replenishment Analyst Relationship Specialty Start Date End Date Frederick Me[place] MD [address] [place] [address] PCP - General Family Medicine 11/29/17 documented as of this encounter
--- OUTSIDE RECORDS SUMMARY | 2023-11-16 19:01 | XMS_ITS | Encounter Summary ---
[place] [address] Care Team Providers Care Government Services Professional Name Role Phone Frederick [place] MD Primary Care Provider [phone] [phone] Reason for Referral * Diagnostic Test (Routine) - Closed Specialty Diagnoses / Procedures Referred By Contac t Referred To Contact Cardiology Diagnoses Diffuse large B-cell lymphoma of lymph nodes of multiple regions Procedures Echocardiogram Transthoracic Adrianne Mera MD [facility] [address] [place] [address] [facility] [place] [address] Referral ID Status Reason Start Date Expiration Date V isits Requested Visits Authorized [id number] Closed Specialty Service Requested 10/12/2022 10/12/2023 1 1 Reason for Visit * Diagnostic Test (Routine) - Closed Specialty Diagnoses / Procedures Referred By Contac t Referred To Contact Cardiology Diagnoses Diffuse large B-cell lymphoma of lymph nodes of multiple regions Procedures Echocardiogram Transthoracic Adrianne Mera MD [facility] [address] [place] [address] [facility] [place] [address] Referral ID Status Reason Start Date Expiration Date V isits Requested Visits Authorized [id number] Closed Specialty Service Requested 10/12/2022 10/12/2023 1 1 Encounter Details Date Type Department Care Team (Late st Contact Info) Description 11/06/2022 10:45 AM EDT - 11/06/2022 11:59 PM EDT Hospital Encounter Non-Invasive Cardiology Lab [facility] [place] [address] Adrianne Mera MD [facility] [place] [address] Diffuse large B-cell lymphoma of lymph nodes [...] AM EDT Office Visit Hematology/Oncology at [address] [phone] Adrianne Mera MD [facility] [place] [address] Yael Merlos APRN [facility] [address] [place] [address] 11/21/2023 10:00 AM EDT Infusion Hematology Oncology at [address] [address] 11/23/2023 11:00 AM EDT Office Visit Hematology and Oncology at [place] [phone] Reynold Proctor MD [facility] [place] [address] 11/23/2023 1:00 PM EDT Appointment Hematology [place] [phone] 11/23/2023 2:00 PM EDT Office Visit Hematology and Oncology at [place] [phone] Micha Givens Jr., MD [facility] [place] [address] 11/23/2023 3:30 PM EDT Hospital Encounter [place] [phone] Micha Givens Jr., MD [facility] [place] [address] documented as of this encounter Procedures Procedure [...] 1950 ? Height: 169 cm ? Account: [id number] Age: 72 yrs ? Weight: 93 kg Gender: Male ?BSA: 2.0 m2 Ordering Physician: ADRIANNE MERA Referring Physician: ADRIANNE MERA Performed By: SHAHANA Fernando Reason For Study: Lymphoma Exam Location: [facility]. Interpretation Summary LV systolic function appears to be low-normal. LV ejection fraction appears to be 52%. Global longitudinal strain is measured at -16.6 %. (GE). There are no segmental wall motion abnormalities. Normal right ventricle. No significant valvular abnormalities. Trivial pericardial effusion. On direct comparison to prior echo dated 10/12/2022, the LV function has slightly improved. Procedure Limited - 98482. Left ventricular strain. Satisfactory quality. There is [...] Location: : 1950 Height: 169 cm Account: [id number] Age: 72 yrs Weight: 93 kg Gender: Male BSA: 2.0 m2 Ordering Physician: ADRIANNE MERA Referring Physician: ADRIANNE MERA Performed By: SHAHANA Fernando Reason For Study: Lymphoma Exam Location: [facility]. Interpretation Summary LV systolic function appears to be low-normal. LV ejection fractionappears to be 52%. Global longitudinal strain is measured at -16.6 %. (GE). There areno segmental wall motion abnormalities. Normal right ventricle. No significant valvular abnormalities. Trivial pericardial effusion. On direct comparison to prior echo dated 10/12/2022, the LV function hasslightly improved. Procedure Limited - [id number]. Left ventricular strain. Satisfactory quality. There isnormal [...] regions documented in this encounter Care Teams Government Services Professional Relationship Specialty Start Date End Date Frederick [place] MD [address] [place] [address] PCP - General Family Medicine 11/29/17 documented as of this encounter
--- OUTSIDE RECORDS SUMMARY | 2023-11-16 19:01 | XMS_ITS | Encounter Summary ---
Author Organization [facility] [address] Care Team Providers Care Underwear Cutter Name Role Phone Frederick [place] MD Primary Care Provider [phone] Encounter Details Date Type Department Care Team [...] AM EDT Office Visit Hematology/Oncology at [address] [address] Adrianne Ramon MD [facility] DR [place] [address] Yael Merlos APRN [facility] [address] [place] [address] 11/21/2023 10:00 AM EDT Infusion Hematology Oncology at [address] [address] 11/23/2023 11:00 AM EDT Office Visit Hematology [place] [phone] Reyonld Proctor MD [facility] [place] [address] 11/23/2023 1:00 PM EDT Appointment Hematology [place] [phone] 11/23/2023 2:00 PM EDT Office Visit Hematology [place] [phone] Micha Givens Jr., MD [facility] [place] [address] 11/23/2023 3:30 PM EDT Hospital [place] [address] Micha Givens Jr., MD [facility] [address] [place] [address] documented as of this encounter Visit Diagnoses Not on filedocumented in this encounter Care Teams Underwear Cutter Relationship Specialty Start Date End Date Frederick Meade MD [address] [place] [address] [address] [place] [address] PCP - General Family Medicine 11/29/17 documented as of this encounter
--- OUTSIDE RECORDS SUMMARY | 2023-11-16 19:01 | XMS_ITS | Encounter Summary ---
[place] [address] Care Team Providers Care Solar Fabrication Technician Name Role Phone Frederick [place] MD Primary Care Provider [phone] Reason for Referral * Diagnostic Test (Routine) - Closed Specialty Diagnoses / Procedures Referred By Contac t Referred To Contact Radiology Diagnoses Diffuse large B-cell lymphoma of lymph nodes of multiple regions Procedures NM PET CT Standard Plus Extremities and Head Yael Merlos APRN [facility] HEMATOLOGY [place] [address] [place] [address] Referral ID Status Reason Start Date Expiration Date V isits Requested Visits Authorized [id number] Closed Specialty Service Requested 12/20/2022 06/19/2024 1 1 Reason for Visit * Reason Comments Follow-up Chemotherapy Encounter Details Date Type Department Care Team (Late st Contact Info) Description 12/20/2022 8:30 AM EDT Office Visit Hematology/Oncology at [address] [address] [facility] HEMATOLOGY [place] [address] [facility] HEMATOLOGY [place] [address] Diffuse large B-cell lymphoma of lymph nodes [...] this encounter Progress Notes * Yael Merlos, MAIL SERVICE COORDINATOR - 12/20/2022 8:30 AM EDT Hematology Clinic [facility] [place] [address] HEMATOLOGY PATIENT EVALUATION Patient Active Problem List [...] [facility] and when to [facility]. No beds so sent to [facility] for [address] CAP, [...] x7 days with nice response. Pathology from [facility] reports large B-cell lymphoma. [...] needle of cervical LN. FISH from [facility] No MYCrearrangement and no fusion of MYC [...] only 1 biologic. Son Cheo Freire. Enjoys Done., movies, race car, cards. Caring in Place. 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 Not a . ETOH: 1-3 beers per week Smoking: Quit 1985. Approximately 61-uevx-xzae history Vaping or electronic cigarettes: denies Chewing [...] SpO2 98% BMI 32.14 kg/m?? GENERAL: Cheo Frerie is a delightful 72-year old male in [...] and BCL-2 protein (Double Expressor.) Flow cytometry ([id number]) supports this interpretation. FISH from [facility] No MYC rearrangement and no fusion of MYC and IGH was observed, CD3 (SP7, [employer]) Background T-cells CD20 (L26, [facility]) diffusely positive in Neoplastic B-cells PAX-5 (1EW, [employer]) diffusely positive in Neoplastic B-cells CD10 (SP67, [facility]) Negative BCL-6 (G/191E/A8, [facility]) Positive MUM-1 (MUM1p, [employer]) Positive Myc (Y69, [employer]) Positive BCL-2 Oncoprotein (124, [facility]) Positive Ki67 (MIB-1) (K2, [employer]) Greater than 95% of cells in cycle Cyclin D1(SP4-R, [facility]) Negative SAPPHIRE JOSE (YDH1113-C, [employer]) Negative. DIAGNOSTICS: 11/28/22 ECHO after C#2 [...] Jan 2023 - booked for 01/25/23 at [facility] Recommend COVID vaccine though he is aware that he may not have a robust response due to ongoing chemotherapy with B-cell depletion. He has already received influenza vaccine. I discussed all of the above with the patient and all of his questions were answered. Support and counseling as appropriate. Yael Merlos, MSN, MAIL SERVICE COORDINATOR Nurse practitioner Section of Hematology Copy Frederick [place] MD documented in this encounter Plan of Treatment Upcoming Encounters Date Type Department Care Team (Late st Contact Info) Description 11/21/2023 9:30 AM EDT Office Visit Hematology/Oncology at [address] [address] [address] [facility] HEMATOLOGY [place] [address] [facility] HEMATOLOGY [place] [address] 11/21/2023 10:00 AM EDT Infusion Hematology Oncology at [address] [address] 11/23/2023 11:00 AM EDT Office Visit Hematology [place] [address] [facility] [address] 11/23/2023 1:00 PM EDT Appointment Hematology [place] [address] 11/23/2023 2:00 PM EDT Office Visit Hematology [place] [phone] Micha Givens Jr., MD [facility] DR HEMATOLOGY [place] [address] 11/23/2023 3:30 PM EDT Hospital [place] [phone] Micha Givens Jr., MD [facility] DR HEMATOLOGY [place] [address] documented as of this encounter Procedures Procedure [...] ? Electronically signed by: Fletcher Duckworth MD, [facility] ([phone]), at 01/05/2023 9:50 AM Narrative 01/05/2023 9:50 AM EST EXAMINATION: NM PET CT STANDARD PLUS EXTREMITIES AND HEAD CLINICAL HISTORY: Hematologic malignancy, assess treatment response Non-Hodgkin lymphoma TECHNIQUE: Procedure: Following IV injection of 87-ohdnwh-6-deoxyglucose (FDG) a standard uptake of approximately 60 [...] lymphoma TECHNIQUE: Procedure: Following IV injection of 49-kvkggl-4-deoxyglucose(FDG) a standard uptake of approximately 60 minutes, [...] of the left upper lobe (image 131 [id number]). These foci are new since the prior [...] first. Electronically signed by: Fletcher Duckworth MD, [facility]([phone]), at 01/05/2023 9:50 AM Yael Merlos MAIL SERVICE COORDINATOR IMG PET ORDERABLES * Comprehensive metabolic panel (non-fasting) (12/20/2022) Pathologist [facility] Creatinine 0.9 Potassium 3.4 Bilirubin, Total 0.2 Aspartate Aminotransferase 15 Alanine Aminotransferase 19 Lactate Dehydrogenase 174 Iron 33 TIBC 197 Iron Saturation 17 Ferritin 279 Blood 12/20/2022 Historical Provider CHEMISTRY ORDERAB LES * CBC (with Diff) (12/20/2022) Pathologist [facility] White Blood Cell 8 Hemoglobin 9.8 Hematocrit 30.3 Platelet 264 Neutrophil Absolute (ANC) - Automated 5.61 Blood 12/20/2022 Historical Provider MD HEMATOLOGY ORDERA BLES documented in this encounter Visit Diagnoses Diagnosis 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
--- OUTSIDE RECORDS SUMMARY | 2023-11-16 19:01 | XMS_ITS | Encounter Summary ---
Author Organization [facility] [place] [address] Care Team Providers Care Multi Craft Maintenance Technician Name Role Phone Frederick Meade MD Primary Care Provider +1 [phone] Reason for Visit * Reason Comments Follow-up Encounter Details Date Type Department Care Team (Late st Contact Info) Description 11/22/2022 11:30 AM EDT Office Visit Hematology/Oncology at [address] [address] Adrianne Ramon MD [facility] DR HEMATOLOGY [place] [address] Yael Merlos, MECHANICAL DOOR REPAIRER [facility] DR HEMATOLOGY [place] [address] Diffuse large B-cell lymphoma of lymph nodes [...] 11:30 AM EDT Hematology Clinic [facility] [place]AD [place] [address] HEMATOLOGY PATIENT EVALUATION Patient Active Problem List [...] [facility] and when to [facility]. No beds so sent to [facility] [...] x7 days with nice response. Pathology from [facility] reports large B-cell lymphoma. Double [...] has been trying to work through the rn care manager trying to obtain a supply to complete [...] and needle of cervical LN. FISH from [facility] No MYCrearrangement and no fusion of MYC [...] only 1 biologic. Son Cheo Freire. Enjoys [employer], [employer], [employer], [employer]. [employer]. 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 Not a . ETOH: 1-3 beers per week Smoking: Quit 1985. Approximately 08-pgue-tjkh history Vaping or electronic cigarettes: denies Chewing [...] is a delightful 72-year old male in [facility]. He is accompanied to the clinic by [...] and BCL-2 protein (Double Expressor.) Flow cytometry ([id number]) supports this interpretation. FISH from [facility] No MYC rearrangement and no fusion of MYC and IGH was observed, CD3 (SP7, Thermo Scientific) Background T-cells CD20 (L26, [place]) diffusely positive in Neoplastic B-cells PAX-5 (1EW, Leica) diffusely positive in Neoplastic B-cells CD10 (SP67, [place]) Negative BCL-6 (G/191E/A8, [place]) Positive MUM-1 (MUM1p, Dako) Positive Myc (Y69, [employer]cam) Positive BCL-2 Oncoprotein (124, [place]) Positive Ki67 (MIB-1) (K2, Leica) Greater than 95% of cells in cycle Cyclin D1(SP4-R, [place]) Negative SAPPHIRE JOSE ([id number], Leica) Negative. DIAGNOSTICS: 11/06/22 ECHO after C#1 [...] 2 tabs per day. 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 No COLO in last 10 years. [...] and counseling as appropriate. Yael Merlos, MSN, MECHANICAL DOOR REPAIRER Nurse practitioner Section of Hematology/Oncology Copy Frederick Meade MD documented in this encounter Plan of Treatment Upcoming Encounters Date Type Department Care Team (Late st Contact Info) Description 11/21/2023 9:30 AM EDT Office Visit Hematology/Oncology at [address] [address] Adrianne Ramon MD [facility] DR HEMATOLOGY [place] [address] Yael Merlos APRN [facility] DR HEMATOLOGY [place] [address] 11/21/2023 10:00 AM EDT Infusion Hematology Oncology at [address] [phone] 11/23/2023 11:00 AM EDT Office Visit Hematology [place] [address] Reynold Proctor MD [facility] [place] [address] 11/23/2023 1:00 PM EDT Appointment Hematology [place] [address] 11/23/2023 2:00 PM EDT Office Visit Hematology [place] [address] Micha Givens Jr., MD [facility] HEMATOLOGY [place] [address] 11/23/2023 3:30 PM EDT Hospital [place] [address] Micha Givens Jr., MD [facility] DR HEMATOLOGY [place] [address] documented as of this encounter Procedures Procedure [...] lung documented in this encounter Care Teams Multi Craft Maintenance Technician Relationship Specialty Start Date End Date Frederick Meade MD [address] [place] [address] PCP - General Family Medicine 11/29/17 documented as of this encounter
--- OUTSIDE RECORDS SUMMARY | 2023-11-16 19:01 | XMS_ITS | Encounter Summary ---
Author Organization [facility] [place] [address] Care Team Providers Care Industrial Economics Professor Name Role Phone Frederick Meade MD Primary Care Provider [phone] [phone] Encounter Details Date Type Department Care Team (Late st Contact Info) Description 11/16/2022 Telephone Hematology/Oncology at [address] [address] Brenda Priest, RN Social History [...] Call: Received call from OSCAR Marcelo at [facility] notifying us that patient was admitted [facility] yesterday and is positive for C-Diff. Dr. Ramon and Yael Merlos APRN updated via this note. documented in this encounter Plan of Treatment Upcoming Encounters Date Type Department Care Team (Late st Contact Info) Description 11/21/2023 9:30 AM EDT Office Visit Hematology/Oncology at [address] [address] Adrianne Ramon MD [facility] [place] [address] Yael Merlos APRN [facility] [place] [address] 11/21/2023 10:00 AM EDT Infusion Hematology Oncology at [address] [address] 11/23/2023 11:00 AM EDT Office Visit [place]ology [place] [address] Reynold Proctor MD [facility] [place] [place] [address] 11/23/2023 1:00 PM EDT Appointment Hematology and Oncology at [place] [phone] 11/23/2023 2:00 PM EDT Office Visit [place]ematology [place] [address] Micha Givens Jr., MD [facility] DR HEMATOLOGY [place] [address] 11/23/2023 3:30 PM EDT Hospital Encounter MRI at [place] [phone] Micha Givens Jr., MD [facility] DR [place]EM[place] [address] documented as of this encounter Visit Diagnoses Not on filedocumented in this encounter Care Teams Industrial Economics Professor Relationship Specialty Start Date End Date Frederick Meade MD [address] [place] [address] PCP - General Family Medicine 11/29/17 documented as of this encounter
--- OUTSIDE RECORDS SUMMARY | 2023-11-16 19:01 | XMS_ITS | Encounter Summary ---
Author Organization [facility] [place] [address] Care Team Providers Care Sheet Sewer Name Role Phone Frederick Meade MD Primary Care Provider +1 [phone] Reason for Visit * Reason Comments Chemotherapy [...] CYCLOPHOSPHAMIDE, 100MG (CYTOXAN) Adrianne Ramon MD [facility] DR HEMATOLOGY [place] [address] [facility] Infusion [address] [place] [address] Referral ID Status Reason Start Date Expiration Date Visits Re quested Visits Authorized [id number] Closed 10/11/2022 10/11/2023 1 100 Encounter Details Date Type Department Care Team (Late st Contact Info) Description 11/29/2022 9:30 AM EDT Infusion Hematology Oncology at [address] [address] Diffuse large B-cell lymphoma of [...] treatment. OBJECTIVE LAB DATA: completed 11/29 at [facility] Pre administration: Chemotherapy orders [...] AM EDT Office Visit Hematology/Oncology at [address] [address] Adrianne Ramon MD [facility] DR HEMATOLOGY [place] [address] Yael Merlos APRN [facility] DR HEMATOLOGY [place] [address] 11/21/2023 10:00 AM EDT Infusion Hematology Oncology at [address] [address] 11/23/2023 11:00 AM EDT Office Visit Hematology [place] [address] Reynold Proctor MD [facility] [place] [address] 11/23/2023 1:00 PM EDT Appointment Hematology [place] [address] 11/23/2023 2:00 PM EDT Office Visit [place]ematology [place] [address] Micha Givens Jr., MD [facility] DR HEMATOLOGY [place] [address] 11/23/2023 3:30 PM EDT [place] [address] Micha Givens Jr., MD [facility] HEMATOLOGY [place] [address] documented as of this encounter Visit Diagnoses [...] 2 minutes is a recommendation from the superintendent tests. Administer prior to chemotherapy., Routine Given 11/29/2022 [...] (IV) Procedure: Accessing Implanted Vascular Access Devices (574) procedure and/or Intravenous (IV) Job Aid: Adult Flushing & Catheter Care (5243) job aid for additional information regarding guidelines [...] Job Aid: Adult Flushing & Catheter Care (1603) job aid for additional information regarding guidelines [...] mL/hr documented in this encounter Care Teams Sheet Sewer Relationship Specialty Start Date End Date Frederick Meade MD [address] [place] [address] PCP - General Family Medicine 11/29/17 documented as of this encounter
--- OUTSIDE RECORDS SUMMARY | 2023-11-16 19:01 | XMS_ITS | Encounter Summary ---
[place] [address] Care Team Providers Care Senior Management Consultant Name Role Phone Frederick Meade MD Primary Care Provider +1 [phone] Encounter Details Date Type Department Care Team (Late st Contact Info) Description 10/24/2022 Telephone Hematology [place] [phone] Castro Jimenez MD [facility] HEMATOLOGY/[place] [address] Social History Tobacco Use Types Packs/Day Years [...] CC: [facility] Castro Jimenez MD [facility] Hematology Oncology Fellow Page [phone] documented in this encounter Plan of Treatment Upcoming Encounters Date Type Department Care Team (Late st Contact Info) Description 11/21/2023 9:30 AM EDT Office Visit Hematology/Oncology at [address] [address] Adrianne Ramon MD [facility] DR HEMATOLOGY [place] [address] Yael Merlos, MANAGER CARDIAC CATH [facility] DR HEMATOLOGY [place] [address] 11/21/2023 10:00 AM EDT Infusion Hematology Oncology at [address] [address] 11/23/2023 11:00 AM EDT Office Visit Hematology and Oncology at [address] Reynold Proctor MD [facility] [place] [address] 11/23/2023 1:00 PM EDT Appointment Hematology and Oncology at [place] [address] 11/23/2023 2:00 PM EDT Office Visit Hematology and Oncology at [address] Micha Givens Jr., MD [facility] DR HEMATOLOGY [place] [address] 11/23/2023 3:30 PM EDT Hospital [place] [address] Micha Givens Jr., MD [facility] DR HEMATOLOGY [place] [address] documented as of this encounter Visit Diagnoses Not on filedocumented in this encounter Care Teams Senior Management Consultant Relationship Specialty Start Date End Date Frederick Meade MD [address] [place] [address] PCP - General Family Medicine 11/29/17 documented as of this encounter
--- OUTSIDE RECORDS SUMMARY | 2023-11-16 19:01 | XMS_ITS | Encounter Summary ---
Author Organization [facility] [place] [address] Care Team Providers Care Cigarette Lighter Repairer Name Role Phone Frederick Meade MD Primary Care Provider [phone] [phone] Encounter Details Date Type Department Care Team (Late st Contact Info) Description 11/08/2022 9:30 AM EDT Office Visit Hematology/Oncology at [address] [address] Adrianne Mera MD [facility] DR [place] [address] Yael Merlos APRN [facility] [place] [address] Diffuse large B-cell lymphoma of lymph nodes [...] - 11/08/2022 9:30 AM EDT [place] [address] HEMATOLOGY PATIENT EVALUATION Patient Active Problem List [...] [facility] and when to [facility]. No beds so sent to [facility] for [address] CAP, MRI,and [...] - unclear cause. - last COLO at [facility] was 01/17/2012. Cheo returns today [...] and needle of cervical LN. FISH from [place] No MYCrearrangement and no fusion of MYC [...] only 1 biologic. Son Cheo Freire. Enjoys [employer], [employer], race car, [employer]. Bowling [employer]. 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 Not a . ETOH: 1-3 beers per week Smoking: Quit 1985. Approximately 44-jkdr-aokz history Vaping or electronic cigarettes: denies Chewing [...] and BCL-2 protein (Double Expressor.) Flow cytometry ([id number]) supports this interpretation. FISH from [place] No MYC rearrangement and no fusion of MYC and IGH was observed, CD3 (SP7, Thermo Scientific) Background T-cells CD20 (L26, [place]) diffusely positive in Neoplastic B-cells PAX-5 (1EW, Leica) diffusely positive in Neoplastic B-cells CD10 (SP67, [place]) Negative BCL-6 (G/191E/A8, [place]) Positive MUM-1 (MUM1p, Dako) Positive Myc (Y69, Abcam) Positive BCL-2 Oncoprotein (124, [place]) Positive Ki67 (MIB-1) (K2, Leica) Greater than 95% of cells in cycle Cyclin D1(SP4-R, [place]) Negative SAPPHIRE JOSE (XAT4125-H, Leica) Negative. DIAGNOSTICS: 11/06/22 ECHO after C#1 [...] undergo investigation with ultrasound. CT CAP at [facility], report and images have been requested. ASSESSMENT/PLAN: Cheo Freire is a very pleasant 72 y.o. male referred by Dr gL Ramírez of ENT for newly diagnosed large [...] chemotherapy. Furtherprednisone prescriptions will be given by PC TECHNICIAN, during PTI chemotherapy teaching Suspected MEHNAZ - Hgb drop 3gm in last 2 weeks. Taking oral iron 2 tabs per day. 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 No COLO in last 10 years. [...] in 3 weeks. ECHO following C#3 at [facility] - week of Dec 04 or Dec 11 I discussed all of the above with the patient and all of his questions were answered. Support and counseling as appropriate. This note was written or modified using [employer] voice recognition software. The final note was screened for heavy threader errors. Please excuse any remaining errors. Addendum staff message from Matthew Barbosa, Cardiology: Adrianne; Thanks for the message; will see if we can see him up in [place]. On review of his CT, he has [...] AM EDT Office Visit Hematology/Oncology at [address] [address] Adrianne Mera MD [facility] DR [place] [address] Yael Merlos APRN [facility] [place] [address] 11/21/2023 10:00 AM EDT Infusion Hematology Oncology at [address] [address] 11/23/2023 11:00 AM EDT Office Visit Hematology [place] [address] Reynold Proctor MD [facility] [address] 11/23/2023 1:00 PM EDT Appointment Hematology [place] [address] 11/23/2023 2:00 PM EDT Office Visit Hematology [place] [address] Micha Givens Jr., MD [facility] [place] [address] 11/23/2023 3:30 PM EDT Hospital [place] [address] Micha Givens Jr., MD [facility] DR [place] [address] documented as of this encounter Procedures Procedure [...] medications documented in this encounter Care Teams Cigarette Lighter Repairer Relationship Specialty Start Date End Date Frederick Meade MD [address] [place] [address] [address] [place] [address] PCP - General Family Medicine 11/29/17 documented as of this encounter
--- OUTSIDE RECORDS SUMMARY | 2023-11-16 19:01 | XMS_ITS | Encounter Summary ---
Author Organization [facility] [place] [address] Care Team Providers Care District Plant Engineer Name Role Phone Frederick Meade MD Primary Care Provider [phone] [phone] Reason for Visit * Reason Onset Date Comments Follow-up 10/26/2022 Encounter Details Date Type Department Care Team (Late st Contact Info) Description 10/26/2022 Telephone Hematology/Oncology at [address] [address] Tania Rosales, RN Follow-up Social [...] than yesterday. He is still admitted at [facility] and relays that the care plan is to keep him admitted until his WBC go up. Per the [facility] progress note, the goal is for an ANC greater than 500 and he is stable, labs this morning his ANC was 90. His next FUV here is 11/08. Cheo was thankful for the call. documented in this encounter Plan of Treatment Upcoming Encounters Date Type Department Care Team (Late st Contact Info) Description 11/21/2023 9:30 AM EDT Office Visit Hematology/Oncology at [address] [address] Adrianne Ramon MD [facility] DR HEMATOLOGY [place] [address] Yael Merlos APRN [facility] [place]EMATOLOGY [place] [address] 11/21/2023 10:00 AM EDT Infusion Hematology Oncology at [address] [address] 11/23/2023 11:00 AM EDT Office Visit Hematology and Oncology at [place] [address] Reynold Proctor MD [facility] [place] [address] 11/23/2023 1:00 PM EDT Appointment Hematology and Oncology at [place] [address] 11/23/2023 2:00 PM EDT Office Visit Hematology and Oncology at [place] [address] Micha Givens Jr., MD [facility] DR [place] [address] 11/23/2023 3:30 PM EDT [place] [address] Micha Givens Jr., MD [facility] DR [place] [address] documented as of this encounter Visit Diagnoses Not on filedocumented in this encounter Care Teams District Plant Engineer Relationship Specialty Start Date End Date Frederick Meade MD [address] [place] [address] PCP - General Family Medicine 11/29/17 documented as of this encounter
--- OUTSIDE RECORDS SUMMARY | 2023-11-16 19:01 | XMS_ITS | Encounter Summary ---
Author Organization [facility] [place] [address] Care Team Providers Care Green Marketer Name Role Phone Frederick Meade MD Primary Care Provider [phone] Encounter Details Date Type Department Care Team (Late st Contact Info) Description 10/19/2022 Telephone Hematology/Oncology at [address] [address] Brenda Priest, RN Social History [...] AM EDT Office Visit Hematology/Oncology at [address] [address] Adrianne Ramon MD [facility] HEMATOLOGY [place] [address] Yael Merlos APRN [facility] [place] [address] 11/21/2023 10:00 AM EDT Infusion Hematology Oncology at [address] [address] 11/23/2023 11:00 AM EDT Office Visit Hematology [place] [address] Reynold Proctor MD [facility] [place] [address] 11/23/2023 1:00 PM EDT Appointment Hematology [place] [address] 11/23/2023 2:00 PM EDT Office Visit Hematology [place] [address] Micha Givens Jr., MD [facility] DR [place] [address] 11/23/2023 3:30 PM EDT Hospital [place] [address] Micha Givens Jr., MD [facility] DR [place] [address] documented as of this encounter Visit Diagnoses Not on filedocumented in this encounter Care Teams Green Marketer Relationship Specialty Start Date End Date Frederick Meade MD [address] [place] [address] [address] [place] [address] PCP - General Family Medicine 11/29/17 documented as of this encounter
--- OUTSIDE RECORDS SUMMARY | 2023-11-16 19:01 | XMS_ITS | Encounter Summary ---
Author Organization [facility] [place] [address] Care Team Providers Care Editor Magazine Name Role Phone Frederick Meade MD Primary Care Provider [phone] [phone] Encounter Details Date Type Department Care Team [...] AM EDT Office Visit Hematology/Oncology at [address] [address] Adrianne Ramon MD [facility] DR [place] [address] Yael Merlos [address]N [facility] DR [place] [address] 11/21/2023 10:00 AM EDT Infusion Hematology Oncology at [address] [address] 11/23/2023 11:00 AM EDT Office Visit Hematology [place] [address] Reynold Proctor MD [facility] [place] [address] 11/23/2023 1:00 PM EDT Appointment Hematology [place] [address] 11/23/2023 2:00 PM EDT Office Visit Hematology [place] [address] Micha Givens Jr., MD [facility] [place] [address] 11/23/2023 3:30 PM EDT Hospital [place] [address] Mciha Givens Jr., MD [facility] DR [place] [address] documented as of this encounter Visit Diagnoses Not on filedocumented in this encounter Care Teams Editor Magazine Relationship Specialty Start Date End Date Frederick Meade MD [address] [place] [address] [address] [place] [address] PCP - General Family Medicine 11/29/17 documented as of this encounter
--- OUTSIDE RECORDS SUMMARY | 2023-11-16 19:01 | XMS_ITS | Encounter Summary ---
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 No beds so sent to [facility] for [address] CAP, [...] at [facility] was 01/17/2012. INTERIM HISTORY OF PRESENT ILLNESS: [...] and needle of cervical LN. FISH from [place] No MYCrearrangement and no fusion of MYC [...] only 1 biologic. Son Cheo Freire. Enjoys [employer], [employer], [employer], [employer]. [employer]. 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 Not a . ETOH: 1-3 beers per week Smoking: Quit 1985. Approximately 19-opsp-ylrs history Vaping or electronic cigarettes: denies Chewing [...] is a delightful 72-year old male in [facility]. He is [...] and BCL-2 protein (Double Expressor.) Flow cytometry ([id number]) supports this interpretation. FISH from [place] No MYC rearrangement and no fusion of MYC and IGH was observed, CD3 (SP7, Thermo Scientific) Background T-cells CD20 (L26, [place]) diffusely positive in Neoplastic B-cells PAX-5 (1EW, Leica) diffusely positive in Neoplastic B-cells CD10 (SP67, [place]) Negative BCL-6 (G/191E/A8, [place]) Positive MUM-1 (MUM1p, [place]) Positive Myc (Y69, Abcam) Positive BCL-2 Oncoprotein (124, [place]) Positive Ki67 (MIB-1) (K2, Leica) Greater than 95% of cells in cycle Cyclin D1(SP4-R, [place]) Negative SAPPHIRE JOSE (VOE2014-M, Leica) Negative. DIAGNOSTICS: 11/28/22 ECHO after C#2 [...] undergo investigation with ultrasound. CT CAP at [facility], report and images have been [...] last ECHO on 11/28/22) Next ECHO at [facility] on 01/25/23 Suspected MEHNAZ - Hgb drop 3gm in last 2 weeks. No overt bleeding. Taking oral iron bid. 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 No COLO in last [...] Jan 2023 - booked for 01/25/23 at [facility] Stop iron, not MEHNAZ, has anemia of [...] AM EDT Office Visit Hematology/Oncology at [address] [phone] Adrianne Ramon MD [facility] HEMATOLOGY [place] [address] Yael Merlos APRN [facility] HEMATOLOGY [place] [address] 11/21/2023 10:00 AM EDT Infusion Hematology Oncology at [address] [phone] 11/23/2023 11:00 AM EDT Office Visit Hematology [place] [address] Reynold Proctor MD [facility] [place] [address] 11/23/2023 1:00 PM EDT Appointment Hematology [place] [address] 11/23/2023 2:00 PM EDT Office Visit Hematology [place] [address] Micha Givens Jr., MD [facility] [place] [address] 11/23/2023 3:30 PM EDT Hospital [place] [address] Micha Givens Jr., MD [facility] [place] [address] documented as of this encounter Procedures Procedure [...] regions documented in this encounter Care Teams Crown Attacher Relationship Specialty Start Date End Date Frederick Meade MD [address] [place] [address] PCP - General Family Medicine 11/29/17 documented as of this encounter
--- OUTSIDE RECORDS SUMMARY | 2023-11-16 19:01 | XMS_ITS | Encounter Summary ---
Author Organization [facility] Address [facility] [place] [address] Care Team Providers Care River Pilot Name Role Phone Frederick Meade MD Primary Care Provider +1 -[phone] Reason for Visit * Reason Onset Date Comments Follow-up 10/25/[address] [facility] Encounter Details Date Type Department Care Team (Late st Contact Info) Description 10/25/2022 Telephone Hematology/Oncology at [address] [phone] Colt Ardon RN Follow-up (Pt admitted to [facility] ) Social History Tobacco Use Types [...] to report pt is getting admitted to [facility] with dehydration and low WBC. He did end up having a bowel movement ?last night but this morning couldn't urinate and had abdominal pressure again. They went to [facility] ED. Dr Mcbride at [facility] called and is admitted him, stating hisANC was 20. Pt had cycle 1 RCHOP with Neulasta On-pro on 10/18 for his DLBCL. Team made aware. Will check in on pt's disposition tomorrow. documented in this encounter Plan of Treatment Upcoming Encounters Date Type Department Care Team (Late st Contact Info) Description 11/21/2023 9:30 AM EDT Office Visit Hematology/Oncology at [address] [address] [facility] HEMATOLOGY [place] [address] Yael Merlos, ATTRACTIONS ASSOCIATE [facility] HEMATOLOGY [place] [address] 11/21/2023 10:00 AM EDT Infusion Hematology Oncology at [address] [address] 11/23/2023 11:00 AM EDT Office Visit Hematology and Oncology at [place] [phone] [facility] [place] [address] 11/23/2023 1:00 PM EDT Appointment Hematology and Oncology at [address] 11/23/2023 2:00 PM EDT Office Visit Hematology and Oncology at [place] [phone] Micha Givens Jr., MD [facility] DR HEMATOLOGY [place] [address] 11/23/2023 3:30 PM EDT Hospital [place] [address] Micha Givens Jr., MD [facility] DR HEMATOLOGY [place] [address] documented as of this encounter Visit Diagnoses Not on filedocumented in this encounter Care Teams River Pilot Relationship Specialty Start Date End Date Frederick Meade MD [address] [place] [address] PCP - General Family Medicine 11/29/17 documented as of this encounter
--- OUTSIDE RECORDS SUMMARY | 2023-11-16 19:01 | XMS_ITS | Encounter Summary ---
Author Organization [facility] Address [facility] [place] [address] Care Team Providers Care Maintenance Porter Name Role Phone Frederick Meade MD Primary Care Provider +1 -[phone] Reason for Visit * Reason Onset Date Comments Other 11/15/2022 To ER Encounter Details Date Type Department Care Team (Late st Contact Info) Description 11/15/2022 Telephone Hematology/Oncology at [address] [address] Polly Orellana RN Other (To [...] Ramon ask he go to ER. Called [facility] Er and gave report to RN. Recent notes faxed. documented in this encounter Plan of Treatment Upcoming Encounters Date Type Department Care Team (Late st Contact Info) Description 11/21/2023 9:30 AM EDT Office Visit Hematology/Oncology at [address] [phone] Adrianne Ramon MD [facility] [place] [address] Yael Merlos APRN [facility] HEMATOLOGY [place] [address] 11/21/2023 10:00 AM EDT Infusion Hematology Oncology at [address] [address] 11/23/2023 11:00 AM EDT Office Visit Hematology and Oncology at [place] [phone] Reynold Proctor MD [facility] [place] [address] 11/23/2023 1:00 PM EDT Appointment Hematology and Oncology at [place] [phone] 11/23/2023 2:00 PM EDT Office Visit Hematology and Oncology at [address] Micha Givens Jr., MD [facility] DR HEMATOLOGY [place] [address] 11/23/2023 3:30 PM EDT Hospital Encounter MRI at [place] [phone] Micha Givens Jr., MD [facility] DR HEMATOLOGY [place] [address] documented as of this encounter Visit Diagnoses Not on filedocumented in this encounter Care Teams Maintenance Porter Relationship Specialty Start Date End Date Frederick Meade MD [address] [place] [address] PCP - General Family Medicine 11/29/17 documented as of this encounter
--- OUTSIDE RECORDS SUMMARY | 2023-11-16 19:01 | XMS_ITS | Encounter Summary ---
Author Organization [facility] Address [facility] [place] [address] Care Team Providers Care Lead Data Entry Operator Name Role Phone Frederick Meade MD Primary Care Provider +1 -[phone] Encounter Details Date Type Department Care Team (Late st Contact Info) Description 12/20/2022 Notes Only Hematology/Oncology at [address] [address] Shelley Cason, [facility] OFFICE OF CARE MANAGEMENT Social History Tobacco [...] were approved for a toi from the [facility] Fest[employer]. They are appreciative of this financial assistance. Cheo indicated he tolerated his last treatment much better than the first 2 so he hope his one will go well. Oferred them support as Mrs. Freire shared how challenging this is for them. Reminded them of SEAMLESS TUBE MILL OPERATOR availability and will continue to follow for support and resources. Brief assessment Supportive Counseling Financial resources [facility] documented in this encounter Plan of Treatment Upcoming Encounters Date Type Department Care Team (Late st Contact Info) Description 11/21/2023 9:30 AM EDT Office Visit Hematology/Oncology at [address] [address] Adrianne Ramon MD [facility] DR [place] [address] Yael Merlos APRN [facility] HEMATOLOGY [place] [address] 11/21/2023 10:00 AM EDT Infusion Hematology Oncology at [address] [address] 11/23/2023 11:00 AM EDT Office Visit Hematology [place] [address] Reynold Proctor MD [facility] [place] [address] 11/23/2023 1:00 PM EDT Appointment Hematology [place] [address] 11/23/2023 2:00 PM EDT Office Visit Hematology [place] [address] Micha Givens Jr., MD [facility] [place] [address] 11/23/2023 3:30 PM EDT Hospital Encounter MRI at [place] [phone] Micha Givens Jr., MD [facility] DR [place] [address] documented as of this encounter Visit Diagnoses Not on filedocumented in this encounter Care Teams Lead Data Entry Operator Relationship Specialty Start Date End Date Frederick Meade MD [address] [place] [address] [address] [place] [address] PCP - General Family Medicine 11/29/17 documented as of this encounter
--- OUTSIDE RECORDS SUMMARY | 2023-11-16 19:01 | XMS_ITS | Encounter Summary ---
Author Organization [facility] [place] [address] Care Team Providers Care Rail Manager Name Role Phone Frederick Meade MD Primary Care Provider +1 -[phone] Encounter Details Date Type Department Care Team [...] AM EDT Office Visit Hematology/Oncology at [address] [address] Adrianne Ramon MD [facility] [place] [address] Yael Merlos APRN [facility] [place] [address] 11/21/2023 10:00 AM EDT Infusion Hematology Oncology at [address] [address] 11/23/2023 11:00 AM EDT Office Visit Hematology [place] [address] Reynold Proctor MD [facility] [place] [place] [address] 11/23/2023 1:00 PM EDT Appointment Hematology [place] [address] 11/23/2023 2:00 PM EDT Office Visit Hematology [place] [address] Micha Givens Jr., MD [facility] [place] [address] 11/23/2023 3:30 PM EDT Hospital [place] [address] Micha Givens Jr., MD [facility] [address] [place] [address] documented as of this encounter Visit Diagnoses Not on filedocumented in this encounter Care Teams Rail Manager Relationship Specialty Start Date End Date Frederick Meade MD [address] [place] [address] [address] [place] [address] PCP - General Family Medicine 11/29/17 documented as of this encounter
--- OUTSIDE RECORDS SUMMARY | 2023-11-16 19:01 | XMS_ITS | Encounter Summary ---
Author Organization [facility] [place] [address] Care Team Providers Care Supervisor Receiving And Processing Name Role Phone Frederick Meade MD Primary Care Provider +1 -[phone] Encounter Details Date Type Department Care Team [...] AM EDT Office Visit Hematology/Oncology at [address] [address] Adrianne Ramon MD [facility] DR [place] [address] Yael Merlos APRN [facility] DR [place] [address] 11/21/2023 10:00 AM EDT Infusion Hematology Oncology at [address] [address] 11/23/2023 11:00 AM EDT Office Visit Hematology [place] [address] Reynold Proctor MD [facility] [place] [address] 11/23/2023 1:00 PM EDT Appointment Hematology [place] [phone] 11/23/2023 2:00 PM EDT Office Visit Hematology [place] [address] Micha Givens Jr., MD [facility] [place] [address] 11/23/2023 3:30 PM EDT Hospital [place] [address] Micha Givens Jr., MD [facility] DR [place] [address] documented as of this encounter Visit Diagnoses Not on filedocumented in this encounter Care Teams Supervisor Receiving And Processing Relationship Specialty Start Date End Date Frederick Meade MD [address] [place] [address] [address] [place] [address] PCP - General Family Medicine 11/29/17 documented as of this encounter
--- OUTSIDE RECORDS SUMMARY | 2023-11-16 19:01 | XMS_ITS | Encounter Summary ---
Author Organization [facility] Address [facility] [place] [address] Care Team Providers Care Gas Worker Name Role Phone Frederick Meade MD Primary Care Provider +1 -[phone] Encounter Details Date Type Department Care Team (Late st Contact Info) Description 11/08/2022 Notes Only Hematology/Oncology at [address] [address] Shelley Cason, [facility]NAG[facility] Social History [...] needs today. Offered support. Reminded Cheo of MANAGER VALUATION availability and will continue to follow as indicated. Brief assessment Supportive Counseling documented in this encounter Plan of Treatment Upcoming Encounters Date Type Department Care Team (Late st Contact Info) Description 11/21/2023 9:30 AM EDT Office Visit Hematology/Oncology at [address] [phone] Adrianne Ramon MD [facility] DR [place] [address] Yael Merlos APRN [facility] [place] [address] 11/21/2023 10:00 AM EDT Infusion Hematology Oncology at [address] [address] 11/23/2023 11:00 AM EDT Office Visit Hematology [place] [address] Reynold Proctor MD [facility] [place] [address] 11/23/2023 1:00 PM EDT Appointment Hematology [place] [address] 11/23/2023 2:00 PM EDT Office Visit Hematology [place] [address] Micha Givens Jr., MD [facility] DR [place] [address] 11/23/2023 3:30 PM EDT Hospital En[place] [address] Micha Givens Jr., MD [facility] DR [place] [address] documented as of this encounter Visit Diagnoses Not on filedocumented in this encounter Care Teams Gas Worker Relationship Specialty Start Date End Date Frederick Meade MD [address] [place] [address] [address] [place] [address] PCP - General Family Medicine 11/29/17 documented as of this encounter
--- OUTSIDE RECORDS SUMMARY | 2023-11-16 19:01 | XMS_ITS | Encounter Summary ---
Author Organization [facility] [place] [address] Care Team Providers Care Roll Mechanic Name Role Phone Frederick Meade MD Primary Care Provider +1 -[phone] Reason for Visit * Reason Comments Chemotherapy [...] TC CYCLOPHOSPHAMIDE, 100MG (CYTOXAN) Adrianne Ramon MD [facility] DR HEMATOLOGY [place] [address] [facility] Infusion [address] [place] [address] Referral ID Status Reason Start Date Expiration Date Visits Re quested Visits Authorized [id number] Closed 10/11/2022 10/11/2023 1 100 Encounter Details Date Type Department Care Team (Late st Contact Info) Description 12/20/2022 8:30 AM EDT Infusion Hematology Oncology at [address] [address] Diffuse large B-cell lymphoma of [...] LAB DATA: completed 12/20 at [facility] Pre administration: Chemotherapy orders independently verified for [...] Office Visit Hematology/Oncology at [address] [address] Adrianne Ramon MD [facility] DR HEMATOLOGY [place] [address] Yael Merlos APRN [facility] DR HEMATOLOGY [place] [address] 11/21/2023 10:00 AM EDT Infusion Hematology Oncology at [address] [address] 11/23/2023 11:00 AM EDT Office Visit Hematology [place] [address] Reynold Proctor MD [facility] [place] [place] [address] 11/23/2023 1:00 PM EDT Appointment Hematology [place] [address] 11/23/2023 2:00 PM EDT Office Visit Hematology [place] [address] Micha Givens Jr., MD [facility] DR HEMATOLOGY [place] [address] 11/23/2023 3:30 PM EDT Hospital [place] [address] Micha Givens Jr., MD [facility] DR HEMATOLOGY [place] [address] documented as of this encounter Visit Diagnoses [...] 2 minutes is a recommendation from the rider ticket worker. Administer prior to chemotherapy., Routine Given [...] Job Aid: Adult Flushing & Catheter Care (8324) job aid for additional information regarding guidelines [...] mL/hr documented in this encounter Care Teams Roll Mechanic Relationship Specialty Start Date End Date Frederick Meade MD [address] [place] [address] PCP - General Family Medicine 11/29/17 documented as of this encounter
--- OUTSIDE RECORDS SUMMARY | 2023-11-16 19:01 | XMS_ITS | Encounter Summary ---
Author Organization [facility] [place] [address] Care Team Providers Care Attendant Arcade Name Role Phone Frederick Meade MD Primary Care Provider +1 -[phone] Reason for Visit * Reason Comments Chemotherapy [...] TC CYCLOPHOSPHAMIDE, 100MG (CYTOXAN) Adrianne Ramon MD [facility] DR [place] [address] [facility] Infusion [address] [place] [address] Referral ID Status Reason Start Date Expiration Date Visits Re quested Visits Authorized [id number] Closed 10/11/2022 10/11/2023 1 100 Encounter Details Date Type Department Care Team (Late st Contact Info) Description 11/08/2022 10:00 AM EDT Infusion Hematology Oncology at [address] [address] Diffuse large B-cell lymphoma of [...] treatment. OBJECTIVE LAB DATA: completed 11/08 at [facility] Pre administration: Chemotherapy orders [...] AM EDT Office Visit Hematology/Oncology at [address] [address] Adrianne Ramon MD [facility] DR [place] [address] Yael Merlos APRN [facility] DR [place] [address] 11/21/2023 10:00 AM EDT Infusion Hematology Oncology at [address] [address] 11/23/2023 11:00 AM EDT Office Visit [place]ology [place] [address] Reynold Proctor MD [facility] [place] [address] 11/23/2023 1:00 PM EDT Appointment Hematology [place] [address] 11/23/2023 2:00 PM EDT Office Visit [place]ematology [place] [address] Micha Givens Jr., MD [facility] DR [place] [address] 11/23/2023 3:30 PM EDT Hospital Encounter MRI at [facility] [place] [address] Micha Givens Jr., MD [facility] DR [place] [address] documented as of this encounter Visit Diagnoses [...] 2 minutes is a recommendation from the polygraph technician. Administer prior to chemotherapy., Routine Given 11/08/2022 [...] (IV) Procedure: Accessing Implanted Vascular Access Devices (244) procedure and/or Intravenous (IV) Job Aid: Adult Flushing & Catheter Care (3907) job aid for additional information regarding guidelines [...] Job Aid: Adult Flushing & Catheter Care (5044) job aid for additional information regarding guidelines [...] mL/hr documented in this encounter Care Teams Attendant Arcade Relationship Specialty Start Date End Date Frederick Meade MD [address] [place] [address] PCP - General Family Medicine 11/29/17 documented as of this encounter
--- OUTSIDE RECORDS SUMMARY | 2023-11-16 19:01 | XMS_ITS | Encounter Summary ---
Author Organization [facility] [place] [address] Care Team Providers Care Product Architect Name Role Phone Frederick Meade MD Primary Care Provider +1 -[phone] Reason for Visit * Reason Onset Date Comments Questions 11/14/2022 Encounter Details Date Type Department Care Team (Late st Contact Info) Description 11/14/2022 Telephone Hematology/Oncology at [address] [address] Colt Ardon, RN Questions Social [...] [facility] They are soft formed, not loose He has been taking Metamucil regularly, his wants to make sure that is normal Best call back number [phone] documented in this encounter Plan of Treatment Upcoming Encounters Date Type Department Care Team (Late st Contact Info) Description 11/21/2023 9:30 AM EDT Office Visit Hematology/Oncology at [address] [address] Adrianne Ramon MD [facility] HEMATOLOGY [place] [address] Yael Merlos APRN [facility] DR HEMATOLOGY [place] [address] 11/21/2023 10:00 AM EDT Infusion Hematology Oncology at [address] [address] 11/23/2023 11:00 AM EDT Office Visit Hematology and Oncology at [place] [phone] Reynold Proctor MD [facility] [place] [address] 11/23/2023 1:00 PM EDT Appointment Hematology and Oncology at [place] [address] 11/23/2023 2:00 PM EDT Office Visit Hematology and Oncology at [place] [phone] Micha Givens Jr., MD [facility] DR HEMATOLOGY [place] [address] 11/23/2023 3:30 PM EDT Hospital Encounter MRI at [place] [phone] Micha Givens Jr., MD [facility] DR HEMATOLOGY [place] [address] documented as of this encounter Visit Diagnoses Not on filedocumented in this encounter Care Teams Product Architect Relationship Specialty Start Date End Date Frederick Meade MD [address] [place] [address] [address] [place] [address] PCP - General Family Medicine 11/29/17 documented as of this encounter
--- OUTSIDE RECORDS SUMMARY | 2023-11-16 19:01 | XMS_ITS | Encounter Summary ---
Author Organization [facility] [place] [address] Care Team Providers Care Auto Service Station Attendant Name Role Phone Frederick Meade MD Primary Care Provider [phone] [phone] Encounter Details Date Type Department Care Team (Late st Contact Info) Description 11/16/2022 Orders Only [place] [phone] Adrianne Ramon MD [facility] DR HEMATOLOGY [place] [address] High risk medication use; Diffuse large B-cell [...] AM EDT Office Visit Hematology/Oncology at [address] [address] Adrianne Ramon MD [facility] DR HEMATOLOGY [place] [address] Yael Merlos APRN [facility] HEMATOLOGY [place] [address] 11/21/2023 10:00 AM EDT Infusion Hematology Oncology at [address] [address] 11/23/2023 11:00 AM EDT Office Visit [place]ematology [place] [address] Reynold Proctor MD [facility] [place] [address] 11/23/2023 1:00 PM EDT Appointment Hematology [place] [address] 11/23/2023 2:00 PM EDT Office Visit Hematology [place] [address] Micha Givens Jr., MD [facility] DR HEMATOLOGY [place] [address] 11/23/2023 3:30 PM EDT Hospital [place] [address] Micha Givens Jr., MD [facility] DR HEMATOLOGY [place] [address] documented as of this encounter Visit Diagnoses Diagnosis High risk medication use Encounter for long-term (current) use of other medications 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
--- OUTSIDE RECORDS SUMMARY | 2023-11-16 19:01 | XMS_ITS | Encounter Summary ---
Author Organization [facility] Address [facility] [place] [address] Care Team Providers Care Linotyper Name Role Phone Frederick Meade MD Primary Care Provider [phone] [phone] Reason for Visit * Reason Onset Date Comments Other 10/30/[address] admission to [facility] Encounter Details Date Type Department Care Team (Late st Contact Info) Description 10/30/2022 Telephone Hematology/Oncology at [address] [address] Lucía Nelson RN Other (FUV questions after admission to [facility]) Social History Tobacco Use Types Packs/Day [...] - 10/30/2022 10:39 AM EDT Cheo Freire [id number] Cheo was admitted to [facility] 10/25-10/29 for fevers and neutropenia. Missed his pita apt that Shayy Jarrett APRN was going to do last week. [facility] Cycle 1 10/18. Cycle 2- scheduled [...] AM EDT Office Visit Hematology/Oncology at [address] [address] Adrianne Ramon MD [facility] [place] [address] Yael Merlos APRN [facility] [place] [address] 11/21/2023 10:00 AM EDT Infusion Hematology Oncology at [address] [address] 11/23/2023 11:00 AM EDT Office Visit Hematology [place] [address] Reynold Proctor MD [facility] [place] [address] 11/23/2023 1:00 PM EDT Appointment Hematology [place] [address] 11/23/2023 2:00 PM EDT Office Visit Hematology [place] [address] Micha Givens Jr., MD [facility] [place] [address] 11/23/2023 3:30 PM EDT Hospital [place] [address] Micha iGvens Jr., MD [facility] DR [place] [address] documented as of this encounter Visit Diagnoses Not on filedocumented in this encounter Care Teams Linotyper Relationship Specialty Start Date End Date Frederick Meade MD [address] [place] [address] PCP - General Family Medicine 11/29/17 documented as of this encounter
--- OUTSIDE RECORDS SUMMARY | 2023-11-16 19:01 | XMS_ITS | Encounter Summary ---
Author Organization [facility] [place] [address] Care Team Providers Care Coin Machine Collector Name Role Phone Frederick Meade MD Primary Care Provider [phone] [phone] Encounter Details Date Type Department Care Team (Late st Contact Info) Description 11/29/2022 9:00 AM EDT Office Visit Hematology/Oncology at [address] [address] Adrianne Ramon MD [facility] DR [place] [address] Yael Merlos APRN [facility] DR [place] [address] Diffuse large B-cell lymphoma of lymph nodes [...] - 11/29/2022 9:00 AM EDT Hematology Clinic [facility] [place] [address] HEMATOLOGY PATIENT EVALUATION Patient Active Problem List [...] ~2 weeks ago saw [facility] and when to [facility]. [facility] [...] and needle of cervical LN. FISH from [place] No MYCrearrangement and no fusion of MYC [...] only 1 biologic. Son Cheo Freire. Enjoys [employer], [employer], [employer], [employer]. [employer]. 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 Not a . ETOH: 1-3 beers per week Smoking: Quit 1985. Approximately 93-jyre-wrki history Vaping or electronic cigarettes: denies Chewing [...] and BCL-2 protein (Double Expressor.) Flow cytometry ([id number]) supports this interpretation. FISH from [place] No MYC rearrangement and no fusion of MYC and IGH was observed, CD3 (SP7, [employer]) Background T-cells CD20 (L26, [place]) diffusely positive in Neoplastic B-cells PAX-5 (1EW, Leica) diffusely positive in Neoplastic B-cells CD10 (SP67, [place]) Negative BCL-6 (G/191E/A8, [place]) Positive MUM-1 (MUM1p, Dako) Positive Myc (Y69, [employer]cam) Positive BCL-2 Oncoprotein (124, [place]) Positive Ki67 (MIB-1) (K2, Leica) Greater than 95% of cells in cycle Cyclin D1(SP4-R, [place]) Negative SAPPHIRE JOSE ([id number], Leica) Negative. DIAGNOSTICS: 10/10/23 ECHO after C#2 [...] undergo investigation with ultrasound. CT CAP at [facility], report and images have been requested. [...] Taking oral iron bid. Stools have been pals specialist recently. No COLO in last 10 [...] AM EDT Office Visit Hematology/Oncology at [address] [address] Adrianne Ramon MD [facility] DR [place] [address] Yael Merlos, CHIEF CREW SCHEDULER [facility] DR [place] [address] 11/21/2023 10:00 AM EDT Infusion Hematology Oncology at [address] [phone] 11/23/2023 11:00 AM EDT Office Visit Hematology and Oncology at [place] [phone] Reynold Proctor MD [facility] [place] [address] 11/23/2023 1:00 PM EDT Appointment Hematology and Oncology at [place] [phone] 11/23/2023 2:00 PM EDT Office Visit Hematology [place] [address] Micha Givens Jr., MD [facility] [place] [address] 11/23/2023 3:30 PM EDT Hospital [place] [address] Micha Givens Jr., MD [facility] [place] [address] Scheduled Orders Name Type Priority Associated Diagnoses [...] type documented in this encounter Care Teams Coin Machine Collector Relationship Specialty Start Date End Date Frederick Meade MD [address] [place] [address] PCP - General Family Medicine 11/29/17 documented as of this encounter
--- OUTSIDE RECORDS SUMMARY | 2023-11-16 19:01 | XMS_ITS | Encounter Summary ---
Author Organization [facility] [place] [address] Care Team Providers Care Manganese Wheeler Name Role Phone Frederick Meade MD Primary Care Provider [phone] [phone] Encounter Details Date Type Department Care Team [...] AM EDT Office Visit Hematology/Oncology at [address] [address] Adrianne Ramon MD [facility] DR [place] [address] Yael Merlos APRN [facility] DR [place] [address] 11/21/2023 10:00 AM EDT Infusion Hematology Oncology at [address] [address] 11/23/2023 11:00 AM EDT Office Visit Hematology [place] [address] Reynold Proctor MD [facility] [place] [address] 11/23/2023 1:00 PM EDT Appointment Hematology [place] [address] 11/23/2023 2:00 PM EDT Office Visit Hematology [place] [address] Micha Givens Jr., MD [facility] [place] [address] 11/23/2023 3:30 PM EDT Hospital [place] [address] Micha Givens Jr., MD [facility] DR [place] [address] documented as of this encounter Visit Diagnoses Not on filedocumented in this encounter Care Teams Manganese Wheeler Relationship Specialty Start Date End Date Frederick Meade MD [address] [place] [address] [address] [place] [address] PCP - General Family Medicine 11/29/17 documented as of this encounter
--- OUTSIDE RECORDS SUMMARY | 2023-11-16 19:01 | XMS_ITS | Encounter Summary ---
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 New lymphoma. Needs anthracycline. Echo w/ EF 49% & mild global hypokinesis. Please eval for ongoing anthracycline safety. Adrianne Ramon MD [facility] HEMATOLOGY [place] [address] Chalo Barbosa MD [facility] [place] [address] Referral ID Status Reason Start Date Expiration Date V isits Requested Visits Authorized [id number] Closed Consult, Test & Treat 10/12/2022 10/12/2023 1 1 Encounter Details Date Type Department Care Team (Latest Contact Info) Description 11/06/2022 2:10 PM EDT Office Visit Cardiology at [place] [phone] Chalo Barbosa MD [facility] [place] [address] Abnormal echocardiogram Social History Tobacco Use Types [...] from the original note were not included. [facility] [place], [place] [address] CARDIO-ONCOLOGY CONSULTATION Cheo Santos Teressagisell Primary Care [...] Office [place]20[place] [facility] [place] [...] AM EDT Office Visit Hematology/Oncology at [address] [phone] Adrianne Ramon MD [facility] HEMATOLOGY [place] [address] Yael Merlos, RN OUTPATIENT SURGERY [facility] HEMATOLOGY [place] [address] 11/21/2023 10:00 AM EDT Infusion Hematology Oncology at [address] [phone] 11/23/2023 11:00 AM EDT Office Visit Hematology and Oncology at [place] [phone] Reynold Proctor MD [facility] [place] [address] 11/23/2023 1:00 PM EDT Appointment Hematology [place] [address] 11/23/2023 2:00 PM EDT Office Visit Hematology [place] [address] Micha Givesn Jr., MD [facility] HEMATOLOGY [place] [address] 11/23/2023 3:30 PM EDT Hospital [place] [address] Micha Givens Jr., MD [facility] HEMATOLOGY [place] [address] Scheduled Referrals Name Type Priority Associated Diagnoses Order Schedule Referral to Cardiology Outpatient Referral Urgent 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
--- OUTSIDE RECORDS SUMMARY | 2023-11-16 19:02 | XMS_ITS | Encounter Summary ---
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 of multiple regions Procedures NM PET CT Standard Plus Extremities and Head Adrianne Ramon MD [facility] DR [place] [address] [place] [address] Referral ID Status Reason Start Date Expiration Date V isits Requested Visits Authorized [id number] Closed Specialty Service Requested 10/10/2022 04/12/2024 1 2 Encounter Details Date Type Department Care Team (Late st Contact Info) Description 10/12/2022 10:26 AM EDT - 10/12/2022 11:59 PM EDT Hospital Encounter [place] [address] Adrianne Ramon MD [facility] [place] [address] Discharge Disposition: Home Social History [...] AM EDT Office Visit Hematology/Oncology at [address] [address] Adrianne Ramon MD [facility] DR [place] [address] Yael Merlos APRN [facility] DR [place] [address] 11/21/2023 10:00 AM EDT Infusion Hematology Oncology at [address] [address] 11/23/2023 11:00 AM EDT Office Visit Hematology [place] [address] Reynold Proctor MD [facility] [place] [address] 11/23/2023 1:00 PM EDT Appointment Hematology [place] [address] 11/23/2023 2:00 PM EDT Office Visit Hematology [place] [address] Micha Givens Jr., MD [facility] DR [place] [address] 11/23/2023 3:30 PM EDT [place] [address] Micha Givens Jr., MD [facility] DR [place] [address] documented as of this encounter Procedures Procedure [...] Glucose, POC 113 65 - 199 mg/dL [facility] Comment: Supplemental ranges: <140 mg/dL before meals <180 mg/dL all other times of the day Blood 10/12/2022 11:0 0 AM EDT 10/12/2022 11:00 AM EDT Adrianne Ramon MD POINT OF CARE TE ST ORDERABLES [facility] [place] [place] [address] documented in this encounter Visit Diagnoses Not on filedocumented in this encounter Care Teams Acute Coordinator Relationship Specialty Start Date End Date Frederick Meade MD [address] [place] [address] PCP - General Family Medicine 11/29/17 documented as of this encounter
--- OUTSIDE RECORDS SUMMARY | 2023-11-16 19:02 | XMS_ITS | Encounter Summary ---
Author Organization [facility] [place] [address] Care Team Providers Care Contact Worker Name Role Phone Frederick Meade MD Primary Care Provider [phone] Encounter Details Date Type Department Care Team (Late st Contact Info) Description 10/10/2022 Orders Only Hematology [place] [address] Adrianne Ramon MD [facility] DR [place] [address] Non-Hodgkin lymphoma of lymph nodes of multiple [...] AM EDT Office Visit Hematology/Oncology at [address] [address] Adrianne Ramon MD [facility] DR [place] [address] Yael Merlos, KARLA [facility] [place] [address] 11/21/2023 10:00 AM EDT Infusion Hematology Oncology at [address] [address] 11/23/2023 11:00 AM EDT Office Visit Hematology [place] [address] Reynold Proctor MD [facility] [place] [address] 11/23/2023 1:00 PM EDT Appointment Hematology [place] [address] 11/23/2023 2:00 PM EDT Office Visit Hematology [place] [address] Micha Givens Jr., MD [facility] DR [place] [address] 11/23/2023 3:30 PM EDT Hospital [place] [address] Micha Givens Jr., MD [facility] DR [place] [address] documented as of this encounter Visit Diagnoses Diagnosis Non-Hodgkin lymphoma of lymph nodes of multiple regions, unspecified non-Hodgkin lymphoma type documented in this encounter Care Teams Contact Worker Relationship Specialty Start Date End Date Frederick Meade MD [address] [place] [address] [address] [place] [address] PCP - General Family Medicine 11/29/17 documented as of this encounter
--- OUTSIDE RECORDS SUMMARY | 2023-11-16 19:02 | XMS_ITS | Encounter Summary ---
[place] [address] Care Team Providers Care Astronomy Teacher Name Role Phone Frederick Meade MD Primary Care Provider [phone] [phone] Encounter Details Date Type Department Care Team (Late st Contact Info) Description 09/21/2022 Notes [place] [address] Karly Jacobs MD [facility] [place] [address] Social History Tobacco Use Types Packs/Day Years [...] by Transfer Center by Dr. Lucero at [facility] on 09/21/22 regarding Cheo Freire. Cheo Freire is a 72 y.o. male with PMH T2DM (diet controlled), HTN (lisinopril), prostate Ca (diagnosed 2014, no treatment), tobacco use history (quit 1984), prior chewing tobacco use history, very occasional alcohol who presented to [facility] with 1 wk throat swelling and [...] ENT, Dr. Ramírez, who is apparently in [place], but suggested this may represent angioedema vs [...] Jacobs MD, PGY3 09/21/2022 11:33 PM Pager #[phone] documented in this encounter Plan of Treatment Upcoming Encounters Date Type Department Care Team (Late st Contact Info) Description 11/21/2023 9:30 AM EDT Office Visit Hematology/Oncology at [address] [address] Adrianne Ramon MD [facility] DR [place] [address] Yael Merlos, [employer] [place] [address] 11/21/2023 10:00 AM EDT Infusion Hematology Oncology at [address] [address] 11/23/2023 11:00 AM EDT Office Visit Hematology [place] [address] Reynold Proctor MD [facility] [place] [address] 11/23/2023 1:00 PM EDT Appointment Hematology [place] [address] 11/23/2023 2:00 PM EDT Office Visit Hematology [place] [address] Micha Givens Jr., MD [facility] [place] [address] 11/23/2023 3:30 PM EDT Hospital [place] [address] Micha Givens Jr., MD [facility] DR [place] [address] documented as of this encounter Results * [...] signed by: Kervin Lam MD, [facility] ([phone]), at 09/22/2022 3:13 PM Narrative 09/22/2022 3:13 PM EDT EXAMINATION: REQUEST FOR 2ND READ CT NECK CLINICAL HISTORY: Nasopharyngeal fluid collection vs infected node, retropharyngeal adenopathy, BOT fullness, RIGHT thyroid lesion; Sending Institution [facility]; Date of exam 09/21/2022; I believe [...] BOT fullness, RIGHT thyroid lesion; Sending Institution [facility]; Date of exam 09/21/2022; I believe [...] signed by: Kervin Lam MD, [facility]([phone]), at 09/22/2022 3:13 PM Thierry Ruiz MD IMG OUTSIDE [facility] TATION ORDERABLES documented in this encounter Visit Diagnoses Diagnosis Nasopharyngeal mass Unspecified disease of pharynx Nasopharyngeal mass Unspecified disease of pharynx documented in this encounter Care Teams Astronomy Teacher Relationship Specialty Start Date End Date Frederick Meade MD [address] [place] [address] PCP - General Family Medicine 11/29/17 documented as of this encounter
--- OUTSIDE RECORDS SUMMARY | 2023-11-16 19:02 | XMS_ITS | Encounter Summary ---
Author Organization [facility] [place] [address] Care Team Providers Care Boot And Shoe Repairman Name Role Phone Frederick Meade MD Primary Care Provider [phone] Reason for Visit * Reason Comments Chemotherapy [...] [facility] DR [place] [address] [facility] [address] [place] [address] Referral ID Status Reason Start Date Expiration Date Visits Re quested Visits Authorized [id number] Closed 10/11/2022 10/11/2023 1 100 Encounter Details Date Type Department Care Team (Late st Contact Info) Description 10/18/2022 9:00 AM EDT Infusion Hematology Oncology at [address] [address] Diffuse large B-cell lymphoma of [...] AM EDT Office Visit Hematology/Oncology at [address] [address] Adrianne Ramon MD [facility] DR [place] [address] Yael Merlos APRN [facility] DR [place] [address] 11/21/2023 10:00 AM EDT Infusion Hematology Oncology at [address] [address] 11/23/2023 11:00 AM EDT Office Visit Hematology [place] [address] Reynold Proctor MD [facility] [place] [address] 11/23/2023 1:00 PM EDT Appointment Hematology [place] [address] 11/23/2023 2:00 PM EDT Office Visit Hematology [place] [address] Micha Givens Jr., MD [facility] DR [place] [address] 11/23/2023 3:30 PM EDT Hospital [place] [address] Micha Givens Jr., MD [facility] DR [place] [address] documented as of this encounter Visit Diagnoses [...] 2 minutes is a recommendation from the licsw. Administer prior to chemotherapy., Routine Given 10/18/2022 [...] (IV) Procedure: Accessing Implanted Vascular Access Devices (844) procedure and/or Intravenous (IV) Job Aid: Adult Flushing & Catheter Care (0800) job aid for additional information regarding guidelines [...] mL/hr documented in this encounter Care Teams Boot And Shoe Repairman Relationship Specialty Start Date End Date Frederick Meade MD [address] [place] [address] PCP - General Family Medicine 11/29/17 documented as of this encounter
--- OUTSIDE RECORDS SUMMARY | 2023-11-16 19:02 | XMS_ITS | Encounter Summary ---
[place] [address] Care Team Providers Care Computer Hardware Engineer Name Role Phone Frederick Meade MD Primary Care Provider [phone] [phone] Reason for Visit * Reason Comments Radiation Follow-up prostate cancer Encounter Details Date Type Department Care Team (Late st Contact Info) Description 11/29/2017 1:45 PM EDT Office Visit Radiation Oncology at [address] [phone] Anna Carr [address] [place] [address] Malignant neoplasm of prostate Social [...] Visit from 11/29/2017 in Radiation Oncology at [facility] Weight 93.2 kg (205 lb 6.4 [...] elevated at 5.4 with only 9% free. [place] with Dr. 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 Smoking [...] Visit from 11/29/2017 in Radiation Oncology at [facility] Weight 93.2 kg (205 lb 6.4 [...] prostate cancer with pretreatment PSA of 5.4 [place] 4+3=7. He was treated with external beam [...] AM EDT Office Visit Hematology/Oncology at [address] [address] Adrianne Ramon MD [facility] [address] HEMATOLOGY [place] [address] Yael Merlos APRN [facility] HEMATOLOGY [place] [address] 11/21/2023 10:00 AM EDT Infusion Hematology Oncology at [address] [address] 11/23/2023 11:00 AM EDT Office Visit [place] [phone] Reynold Proctor MD [facility] [place] [address] 11/23/2023 1:00 PM EDT Appointment Hematology [place] [address] 11/23/2023 2:00 PM EDT Office Visit [place]ology [place] [address] Micha Givens Jr., MD [facility] [address] HEMATOLOGY [place] [address] 11/23/2023 3:30 PM EDT [place] [address] Micha Givens Jr., MD [facility] [address] HEMATOLOGY [place] [address] documented as of this encounter Procedures Procedure [...] prostate documented in this encounter Care Teams Computer Hardware Engineer Relationship Specialty Start Date End Date Frederick Meade MD [address] [place] [address] PCP - General Family Medicine 11/29/17 documented as of this encounter
--- OUTSIDE RECORDS SUMMARY | 2023-11-16 19:02 | XMS_ITS | Encounter Summary ---
Author Organization [facility] [place] [address] Care Team Providers Care Chief Commercial Officer Name Role Phone Frederick Meade MD Primary Care Provider [phone] Encounter Details Date Type Department Care Team (Latest Contact Info) Description 10/11/2022 3:11 PM EDT - 10/11/2022 11:59 PM EDT Hospital [place] [phone] Discharge Disposition: Home Social History Tobacco Use [...] AM EDT Office Visit Hematology/Oncology at [address] [address] Adrianne Ramon MD [facility] [place] [address] Yael Merlos, SCRAP KETTLE TENDER [facility] [place] [address] 11/21/2023 10:00 AM EDT Infusion Hematology Oncology at [address] [address] 11/23/2023 11:00 AM EDT Office Visit Hematology and Oncology at [place] [phone] Reynold Proctor MD [facility] [place] [address] 11/23/2023 1:00 PM EDT Appointment Hematology and Oncology at [address] 11/23/2023 2:00 PM EDT Office Visit Hematology and Oncology at [place] [phone] Micha Givens Jr., MD [facility] [address] [place] [address] 11/23/2023 3:30 PM EDT Hospital Encounter MRI at [place] [phone] Micha Givens Jr., MD [facility] [place] [address] documented as of this encounter Procedures Procedure Name Priority Date/Time Associated Diagnosis Comments SURGICAL PATHOLOGY REPORT Routine 10/11/2022 3:13 PM EDT documented in this encounter Results * Surgical Pathology Report (10/11/2022 3:13 PM EDT) Final Diagnosis [id number] ? Location: OPW The signing pathologist has (i) examined the relevant preparation(s) for the specimen(s) and (ii) rendered or confirmed the diagnosis(es). . ?Surgical Pathology DIAGNOSIS CONSULTATION CASE ?? A. TONGUE, LEFT BASE (BIOPSY); [OSR# [id number], COLLECTED 10/05/2022, 12 SLIDES]: ?? 1. Diffuse large B-cell lymphoma, activated B-cell subtype (ABC-DLBCL) (see ?comment) ?? 2. Ki67 proliferation estimated at >95%, lymphoma coexpresses BCL2 and CMYC Electronically signed by: ?Ole Bowen MD Verified: ??10/12/2022 11:37 ??Hematopathologist Performed at: ??-[facility] [place]. [place], [place] [address] Program Manager Slp: Katherine Lopez MD, FCAP, ??CLIA Certificate: [id number] DISCUSSION Per report from the referring institution, ...Flow cytometry ([id number]) supports this interpretation. FISH studies were reportedly sent to [facility] to assess for MYC and [...] referring facility, but included for evaluation at [facility]. Appropriate controls are included for each case. . SPECIMEN(S) SUBMITTED CONSULTATION CASE A - 12 slide(s) labeled [id number], collection date 10/05/2022. [id number] CARBON COPY: [facility] Surgical Pathology Department [facility], [facility], 2nd Floor [address] [place], [place] ??[address] CLINICAL INFORMATION A 72 year old man. Per provided report, there is a clinical history of Massive LAD, history of prostate cancer; clinical diagnosis code: R59.1. SPECIMEN PROCESSING [facility] ([facility]) pathology slide(s) are reviewed. Refer to Diagnosis and Specimen Submitted for specific case information. For the full text of the [facility] report(s) please refer to the Chart Review Media tab in the electronic health record (eDH). 10/12/2022 11:[address] [facility] Consult Case 10/11/2022 3:13 PM EDT 10/11/2022 3:13 PM EDT Adrianne Ramon MD PATHOLOGY/CYTOLO GY ORDERABLES [facility] [place] [address] [facility] [place] [address] documented in this encounter Visit Diagnoses Not on filedocumented in this encounter Care Teams Chief Commercial Officer Relationship Specialty Start Date End Date Frederick Meade MD [address] [place] [address] PCP - General Family Medicine 11/29/17 documented as of this encounter
--- OUTSIDE RECORDS SUMMARY | 2023-11-16 19:02 | XMS_ITS | Encounter Summary ---
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 Procedures Echocardiogram Transthoracic Adrianne Mera MD [facility] [place] [address] [facility] [place] [address] Referral ID Status Reason Start Date Expiration Date V isits Requested Visits Authorized [id number] Closed Specialty Service Requested 10/11/2022 10/11/2023 1 1 Reason for Visit * Diagnostic Test (Routine) - Closed Specialty Diagnoses / Procedures Referred By Contac t Referred To Contact Cardiology Diagnoses Diffuse large 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 Procedures Echocardiogram Transthoracic Adrianne Mera MD [facility] [place] [address] [facility] [place] [address] Referral ID Status Reason Start Date Expiration Date V isits Requested Visits Authorized [id number] Closed Specialty Service Requested 10/11/2022 10/11/2023 1 1 Encounter Details Date Type Department Care Team (Late st Contact Info) Description 10/12/2022 9:05 AM EDT - 10/12/2022 10:25 AM EDT Hospital Encounter Non-Invasive Cardiology Lab [facility] [place] [address] Adrianne Mera MD [facility] [place] [address] Diffuse large B-cell lymphoma of lymph nodes [...] AM EDT Office Visit Hematology/Oncology at [address] [phone] Adrianne Mear MD [facility] [place] [address] Yael Merlos APRN [facility] [place] [address] 11/21/2023 10:00 AM EDT Infusion Hematology Oncology at [address] [address] 11/23/2023 11:00 AM EDT Office Visit Hematology [place] [address] Reynold Proctor MD [facility] [place] [address] 11/23/2023 1:00 PM EDT Appointment Hematology [place] [address] 11/23/2023 2:00 PM EDT Office Visit Hematology and Oncology at [place] [phone] Micha Givens Jr., MD [facility] DR HEMATOLOGY [place] [address] 11/23/2023 3:30 PM EDT Hospital Encounter MRI at [place] [phone] Micha Givens Jr., MD [facility] [place]Y [place] [address] documented as of this encounter Procedures Procedure [...] 164/86 mmHg ? Patient Location: [facility] : 1950 ? Height: 168 cm ? Account: [id number] Age: 72 yrs ? Weight: 97 kg Gender: Male ?BSA: 2.1 m2 Ordering Physician: ADRIANNE MERA Referring Physician: ADRIANNE MERA Performed By: Teresa Villafuerte RDCS Reason For Study: Diffuse large B-cell lymphoma of lymph nodes of multiple regions Exam Location: [facility]. Interpretation Summary Left ventricle is [...] findings. No comparison study is available. Procedure Complete-55511. Satisfactory quality. Left Ventricle Left ventricle is [...] AMBP: 164/86 mmHg Patient Location: [facility] : 1950 Height: 168 cm Account: [id number] Age: 72 yrs Weight: 97 kg Gender: Male BSA: 2.1 m2 Ordering Physician: ADRIANNE MERA Referring Physician: ADRIANNE MERA Performed By: Teresa Villafuerte RDCS Reason For Study: Diffuse large B-cell lymphoma of lymph nodes ofmultiple regions Exam Location: [facility]. Interpretation Summary Left ventricle is [...] findings. No comparison study is available. Procedure Complete-10813. Satisfactory quality. Left Ventricle Left ventricle is [...] mmHg . The estimated right atrial pressure [id number]. There is Grade I LV diastolic dysfunction [...] regions documented in this encounter Care Teams Advisory Intern Relationship Specialty Start Date End Date Frdeerick Meade MD [address] [place] [address] [address] [place] [address] PCP - General Family Medicine 11/29/17 documented as of this encounter
--- OUTSIDE RECORDS SUMMARY | 2023-11-16 19:02 | XMS_ITS | Encounter Summary ---
[place] [address] Care Team Providers Care Special Events Fundraiser Name Role Phone Frederick Meade MD Primary Care Provider [phone] [phone] Encounter Details Date Type Department Care Team (Late st Contact Info) Description 10/10/2022 Telephone Hematology [place] [phone] Castro Jimenez MD [facility] HEMATOLOGY/[place] [address] Social History Tobacco Use Types Packs/Day Years [...] phone call from Dr. 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 I discussed this case with Dr. Tolliver and soon after that I was told that [facility], which will be the best plan. Dr. Jain was updated about this plan by the hematology clinic. Castro Jimenez MD [facility] Hematology Oncology Fellow Page [phone] documented in this encounter Plan of Treatment Upcoming Encounters Date Type Department Care Team (Late st Contact Info) Description 11/21/2023 9:30 AM EDT Office Visit Hematology/Oncology at [address] [address] Adrianne Ramon MD [facility] DR [place] [address] Yael Merlos, PURCHASING MANAGER/SALES [facility] DR [place]AT[place] [address] 11/21/2023 10:00 AM EDT Infusion Hematology Oncology at [address] [phone] 11/23/2023 11:00 AM EDT Office Visit Hematology [place] [address] Reynold Proctor MD [facility] [place] [address] 11/23/2023 1:00 PM EDT Appointment Hematology and Oncology at [place] [phone] 11/23/2023 2:00 PM EDT Office Visit Hematology and Oncology at [address] Micha Givens Jr., MD [facility] DR [place]EMAT[place] [address] 11/23/2023 3:30 PM EDT Hospital Encounter MRI at [place] [phone] Micha Givens Jr., MD [facility] DR [place]EMATOLOGY [place] [address] documented as of this encounter Visit Diagnoses Not on filedocumented in this encounter Care Teams Special Events Fundraiser Relationship Specialty Start Date End Date Frederick Meade MD [address] [place] [address] [address] [place] [address] PCP - General Family Medicine 11/29/17 documented as of this encounter
--- OUTSIDE RECORDS SUMMARY | 2023-11-16 19:02 | XMS_ITS | Encounter Summary ---
Author Organization [facility] [place] [address] Care Team Providers Care Pathology Technologist Name Role Phone Frederick Meade MD Primary Care Provider [phone] Encounter Details Date Type Department Care Team (Latest Contact Info) Description 09/22/2022 12:50 AM EDT Ancillary Procedure Radiology Library at [facility] [place] [phone] Thierry Ruiz MD [facility] [place] [address] Nasopharyngeal mass Social History Tobacco Use Types [...] AM EDT Office Visit Hematology/Oncology at [address] [address] Adrianne Ramon MD [facility] HEMATOLOGY [place] [address] Yael Merlos APRN [facility] HEMATOLOGY [place] [address] 11/21/2023 10:00 AM EDT Infusion Hematology Oncology at [address] [address] 11/23/2023 11:00 AM EDT Office Visit Hematology [place] [phone] Reynold Proctor MD [facility] [place] [address] 11/23/2023 1:00 PM EDT Appointment Hematology [place] [address] 11/23/2023 2:00 PM EDT Office Visit Hematology [place] [address] Micha Givens Jr., MD [facility] DR HEMATOLOGY [place] [address] 11/23/2023 3:30 PM EDT Hospital Encounter MRI at [place] [phone] Micah Givens Jr., MD [facility] DR HEMATOLOGY [place] [address] documented as of this encounter Procedures Procedure [...] have questions please contact the health care center manager that requested your imaging first. ? Electronically signed by: Kervin Lam MD, [facility] ([phone]), at 09/22/2022 3:13 PM Narrative 09/22/2022 3:13 PM EDT EXAMINATION: REQUEST FOR 2ND READ CT NECK CLINICAL HISTORY: Nasopharyngeal fluid collection vs infected node, retropharyngeal adenopathy, BOT fullness, RIGHT thyroid lesion; Sending Institution [facility]; Date of exam 09/21/2022; I [...] BOT fullness, RIGHT thyroid lesion; Sending Institution [facility]; Date of exam 09/21/2022; I [...] who have questions please contactthe health care center manager that requested your imaging first. Thierry Ruiz MD IMG OUTSIDE INTERPRE TATION ORDERABLES documented in this encounter Visit Diagnoses Diagnosis Nasopharyngeal mass Unspecified disease of pharynx documented in this encounter Care Teams Pathology Technologist Relationship Specialty Start Date End Date Frederick Meade MD [address] [place] [address] PCP - General Family Medicine 11/29/17 documented as of this encounter
--- OUTSIDE RECORDS SUMMARY | 2023-11-16 19:02 | XMS_ITS | Encounter Summary ---
Author Organization [facility] [place] [address] Care Team Providers Care Ob/Gyn Doctor Name Role Phone Frederick Meade MD Primary Care Provider [phone] [phone] Encounter Details Date Type Department Care Team (Late st Contact Info) Description 10/11/2022 External [place] [phone] Provider, Scanning Social History Tobacco Use Types [...] AM EDT Office Visit Hematology/Oncology at [address] [address] Adrianne Ramon MD [facility] DR [place]OLOG[place] [address] Yael Merlos APRN [facility] DR HEMATOLOGY [place] [address] 11/21/2023 10:00 AM EDT Infusion Hematology Oncology at [address] [address] 11/23/2023 11:00 AM EDT Office Visit Hematology [place] [address] Reynold Proctor MD [facility] [place] [place] [address] 11/23/2023 1:00 PM EDT Appointment Hematology [place] [phone] 11/23/2023 2:00 PM EDT Office Visit Hematology [place] [address] Micha Givens Jr., MD [facility] DR HEMATOLOGY [place] [address] 11/23/2023 3:30 PM EDT Hospital [place] [address] Micha Givens Jr., MD [facility] [place]OLOGY [place] [address] documented as of this encounter Procedures Procedure Name Priority Date/Time Associated Diagnosis Comments SURGICAL PATHOLOGY SCAN Routine 10/11/2022 documented in this encounter Results * Scan Doc: Surgical Pathology (10/11/2022) Historical Provider MD LOPEZ MGR SCAN EX T ORDR/RSLT documented in this encounter Visit Diagnoses Not on filedocumented in this encounter Care Teams Ob/Gyn Doctor Relationship Specialty Start Date End Date Frederick Meade MD [address] [place] [address] PCP - General Family Medicine 11/29/17 documented as of this encounter
--- OUTSIDE RECORDS SUMMARY | 2023-11-16 19:02 | XMS_ITS | Encounter Summary ---
[place] [address] Care Team Providers Care Cardiology Rn Name Role Phone Frederick Meade MD Primary Care Provider +1 [phone] Reason for Referral * Diagnostic Test (Routine) - Closed Specialty Diagnoses / Procedures Referred By Contac t Referred To Contact Radiology Diagnoses Diffuse large B-cell lymphoma of lymph nodes of multiple regions Procedures IR [facility] Adrianne Nino MD [facility] [address] [place] [address] [facility] [place] [address] Referral ID Status Reason Start Date Expiration Date V isits Requested Visits Authorized [id number] Closed Specialty Service Requested 10/11/2022 04/13/2024 1 1 Reason for Visit * Diagnostic Test (Routine) - Closed Specialty Diagnoses / Procedures Referred By Contac t Referred To Contact Radiology Diagnoses Diffuse large B-cell lymphoma of lymph nodes of multiple regions Procedures IR [facility] Adrianne Nino MD [facility] [address] [place] [address] [facility] [place] [address] Referral ID Status Reason Start Date Expiration Date V isits Requested Visits Authorized [id number] Closed Specialty Service Requested 10/11/2022 04/13/2024 1 1 Encounter Details Date Type Department Care Team (Late st Contact Info) Description 10/17/2022 7:32 AM EDT - 10/17/2022 11:15 AM EDT Hospital Encounter Radiology at [facility] [place] [address] Adrianne Ramon MD [facility] [address] [place] [address] Diffuse large B-cell lymphoma of lymph nodes [...] provided with an ID card stating the tailing hand and type of port you have. Please carry this with you in a safe place. Bandage: There is a sterile dressing over the port site consisting of small gauze with a clear dressing (Tegaderm or [id number] ). This dressing should be left in place for 48 hours. If the clear dressing becomes loose you should place tape over the edges to secure it in place. Note: If you have steri-strips beneath your dressing, simply allow them to fall off. Do not peel them off. There may be Everest-mcqueen (skin glue) also, allow this to flake [...] is during regular office hours, please call [phone]. If it is after regular office hours, or on weekends or holidays, please call [phone] and ask to speak to the Assistant Dean cushion worker for Interventional Radiology. XXX You have received [...] (home) Telephone Information: PCP: Frederick Meade MD [phone] Date/Time of call: October 18, 2022/9:37 AM [...] of : 1950 AGE: 72 y.o. Address: [address] [place] [phone] (home) Mobile: Telephone Information: Referring Provider: Adrianne [...] Where will study be performed? [facility] Radiology [120] Prefered insertion location: No [...] reviewed: Yes Higinio Ramsey MD PGY-3 Pager #[phone] Department of Radiology [facility] 10/17/2022 Source Note - James Champion [...] eDH order queue. Presenting Diagnosis/ Complaint: Cheo Freier is a 72 y.o. male presenting to IR for chest port- single lumen placement. Past medical history is significant for Prostate cancer, obesity, HTN, and Pulmonary Embolism (not on anticoagulation), with newly diagnosed lymphoma, planning for systemic therapy. Need for durable, long-term venous access for chemotherapy. IR History: None at [facility]. Antiplatelets: Aspirin 81 mg daily. Anticoagulants: None. 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 Tobacco Use Smoking status: Former Packs/day: 1.00 Types: Cigarettes Quit date: 1985 Years since quittin.6 Smokeless tobacco: Former Quit date: 02/19/1986 Tobacco comments: started smoking in [place] Vaping Use Vaping Use: Never used Substance [...] AM EDT Office Visit Hematology/Oncology at [address] [address] Adrianne Ramon MD [facility] [address] [place] [address] Yael Merlos APRN [facility] [place] [address] 11/21/2023 10:00 AM EDT Infusion Hematology Oncology at [address] [address] 11/23/2023 11:00 AM EDT Office Visit Hematology [place] [address] Reynold Proctor MD [facility] [place] [address] 11/23/2023 1:00 PM EDT Appointment Hematology [place] [address] 11/23/2023 2:00 PM EDT Office Visit Hematology [place] [address] Micha Givens Jr., MD [facility] [place] [address] 11/23/2023 3:30 PM EDT Hospital [place] [address] Micha Givens Jr., MD [facility] DR [place] [address] documented as of this encounter Procedures Procedure [...] implant Indication: Diffuse large B-cell lymphoma, durable senior care central venous access for chemotherapy Procedure summary: [...] the interventional radiology nurse. Attending of record: iVsh Villalba MD 10/17/2022 Adrianne Ramon MD IMG IR ORDERABLE S * POCT Glucose (10/17/2022 8:29 AM EDT) Glucose, POC 101 65 - 199 mg/dL [facility] Comment: Supplemental ranges: <140 mg/dL before meals <180 mg/dL all other times of the day Blood 10/17/2022 8:29 AM EDT 10/17/2022 8:29 AM EDT Adrianne Ramon MD POINT [place] [address] documented in this encounter Visit Diagnoses Diagnosis [...] mL/hr documented in this encounter Care Teams Cardiology Rn Relationship Specialty Start Date End Date Frederick Meade MD [address] [facility] [address] [place] [address] PCP - General Family Medicine 11/29/17 documented as of this encounter
--- OUTSIDE RECORDS SUMMARY | 2023-11-16 19:02 | XMS_ITS | Encounter Summary ---
[place] [address] Care Team Providers Care Transport Engineer Name Role Phone Frederick Meade MD Primary Care Provider [phone] [phone] Encounter Details Date Type Department Care Team (Late st Contact Info) Description 10/17/2022 Notes Only Hematology [place] [address] Bailey Moran, RN Social History Tobacco Use [...] AM EDT Office Visit Hematology/Oncology at [address] [address] Adrianne Ramon MD [facility] [place] [address] Yael Merlos APRN [facility] [place] [address] 11/21/2023 10:00 AM EDT Infusion Hematology Oncology at [address] [address] 11/23/2023 11:00 AM EDT Office Visit Hematology [place] [address] Reynold Proctor MD [facility] [place] [address] 11/23/2023 1:00 PM EDT Appointment Hematology and Oncology at [place] [address] 11/23/2023 2:00 PM EDT Office Visit Hematology and Oncology at [place] [phone] Micha Givens Jr., MD [facility] DR [place] [address] 11/23/2023 3:30 PM EDT Hospital Encounter MRI at [place] [phone] Micha Givens Jr., MD [facility] DR [place] [address] documented as of this encounter Visit Diagnoses Not on filedocumented in this encounter Care Teams Transport Engineer Relationship Specialty Start Date End Date Frederick Meade MD [address] [place] [address] PCP - General Family Medicine 11/29/17 documented as of this encounter
--- OUTSIDE RECORDS SUMMARY | 2023-11-16 19:02 | XMS_ITS | Encounter Summary ---
Author Organization [facility] Address [facility] [place] [address] Care Team Providers Care Horticultural Farmworker Name Role Phone Frederick Meade MD Primary Care Provider +1 -[phone] Encounter Details Date Type Department Care Team (Late st Contact Info) Description 10/18/2022 Notes Only Hematology/Oncology at [address] [address] Shelley Cason, [facility] [...] this encounter Progress Notes * Shelley Cason, DAY HABILITATION SPECIALIST - 10/18/2022 11:54 AM EDT Reason for Referral: Brief assessment of social and emotional needs. Met with Cheo, his Claritza and his son Cheo during his first infusion visit today to introduce myself and role of social services technician to assess/address barriers to getting to and [...] Advance care planning Plan: Informed pt of DAY HABILITATION SPECIALIST availability and contact information. Will follow to assess/address psychosocial needs. FRANCISCO J Wisdom, COMPOSITE LAMINATOR, OSW-C Community Advocate [facility] documented in this encounter Plan of Treatment Upcoming Encounters Date Type Department Care Team (Late st Contact Info) Description 11/21/2023 9:30 AM EDT Office Visit Hematology/Oncology at [address] [address] Adrianne Ramon MD [facility] DR [place] [address] Yael Merlos APRN [facility] DR [place] [address] 11/21/2023 10:00 AM EDT Infusion Hematology Oncology at [address] [address] 11/23/2023 11:00 AM EDT Office Visit Hematology [place] [address] Reynold Proctor MD [facility] [place] [address] 11/23/2023 1:00 PM EDT Appointment Hematology [place] [address] 11/23/2023 2:00 PM EDT Office Visit Hematology [place] [address] Micha Givens Jr., MD [facility] [place] [address] 11/23/2023 3:30 PM EDT Hospital [place] [address] Micha Givens Jr., MD [facility] DR [place] [address] documented as of this encounter Visit Diagnoses Not on filedocumented in this encounter Care Teams Horticultural Farmworker Relationship Specialty Start Date End Date Frederick Meade MD [address] [place] [address] PCP - General Family Medicine 11/29/17 documented as of this encounter
--- OUTSIDE RECORDS SUMMARY | 2023-11-16 19:02 | XMS_ITS | Encounter Summary ---
[place] [address] Care Team Providers Care Volunteer Specialist Name Role Phone Frederick Meade MD Primary Care Provider [phone] [phone] Encounter Details Date Type Department Care Team (Late st Contact Info) Description 10/11/2022 Notes [place] [address] James Champion, [facility] [place] [address] Social History Tobacco Use Types Packs/Day Years [...] access for chemotherapy. IR History: None at [facility]. Antiplatelets: Aspirin 81 mg daily. Anticoagulants: None. 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 Tobacco Use Smoking status: Former Packs/day: [...] AM EDT Office Visit Hematology/Oncology at [address] [address] Adrianne Ramon MD [facility] DR [place] [address] Yael Merlos APRN [facility] [place] [address] 11/21/2023 10:00 AM EDT Infusion Hematology Oncology at [address] [address] 11/23/2023 11:00 AM EDT Office Visit Hematology [place] [address] Reynold Proctor MD [facility] [place] [address] 11/23/2023 1:00 PM EDT Appointment Hematology [place] [address] 11/23/2023 2:00 PM EDT Office Visit Hematology and Oncology at [address] Micha Givens Jr., MD [facility] DR [place] [address] 11/23/2023 3:30 PM EDT Hospital Encounter MRI at [place] [phone] Micha Givens Jr., MD [facility] DR [place] [address] documented as of this encounter Visit Diagnoses Not on filedocumented in this encounter Care Teams Volunteer Specialist Relationship Specialty Start Date End Date Frederick Meade MD [address] [place] [address] PCP - General Family Medicine 11/29/17 documented as of this encounter
--- OUTSIDE RECORDS SUMMARY | 2023-11-16 19:02 | XMS_ITS | Encounter Summary ---
Author Organization [facility] [place] [address] Care Team Providers Care Lease Examiner Name Role Phone Frederick Meade MD Primary Care Provider +1 -[phone] Encounter Details Date Type Department Care Team (Late Contact Info) Description 09/21/2022 10:05 PM EDT Ancillary Procedure Radiology Library at [facility] [place] [address] Thierry Ruiz MD [facility] [place] [address] Social History Tobacco Use Types Packs/Day Years [...] AM EDT Office Visit Hematology/Oncology at [address] [address] Adrianne Ramon MD [facility] HEMATOLOGY [place] [address] Yael Merlos APRN [facility] HEMATOLOGY [place] [address] 11/21/2023 10:00 AM EDT Infusion Hematology Oncology at [address] [address] 11/23/2023 11:00 AM EDT Office Visit Hematology and Oncology at [place] [phone] Reynold Proctor MD [facility] [place] [address] 11/23/2023 1:00 PM EDT Appointment Hematology and Oncology at [address] 11/23/2023 2:00 PM EDT Office Visit Hematology and Oncology at [place] [phone] Micha Givens Jr., MD [facility] DR [place] [address] 11/23/2023 3:30 PM EDT Hospital Encounter MRI at [place] [phone] Micha Givens Jr., MD [facility] DR [place] [address] documented as of this encounter Procedures Procedure Name Priority Date/Time Associated Diagnosis Comments FILM LIBRARY STORAGE ONLY CT HEAD AND SPINE Routine 09/21/2022 10:02 PM EDT documented in this encounter Results * Film Library- Storage Only CT Head And Spine (09/21/2022 10:02 PM EDT) Narrative [facility] - 09/21/2022 10:02 PM EDT This exam is auto-finalizing. It's purpose is for storage only. Thierry Ruiz MD G FILM LIBRARY ORD ERABLES DH RAD [place] documented in this encounter Visit Diagnoses Not on filedocumented in this encounter Care Teams Lease Examiner Relationship Specialty Start Date End Date Frederick Meade MD [address] [place] [address] PCP - General Family Medicine 11/29/17 documented as of this encounter
--- OUTSIDE RECORDS SUMMARY | 2023-11-16 19:02 | XMS_ITS | Encounter Summary ---
[place] [address] Care Team Providers Care Welt Beater Name Role Phone Frederick Meade MD Primary Care Provider +1 -[phone] Reason for Visit * Reason Comments Radiation Follow-up prostate cancer Encounter Details Date Type Department Care Team (Late st Contact Info) Description 08/21/2018 9:00 AM EDT Office Visit Radiation Oncology at [address] [phone] [address] Carr [address] [place] [address] Malignant neoplasm of prostate Social [...] 07/16/2018-- WBC= 6.9, RBC= 3.71, HGB=8, HCT=28.5, MINW=121, FERRITIN= 7 (L) Date PSA Testosterone (normal [...] offered biopsy which was performed 09/01/14, demonstrating Luttrell 4+ 3 disease in a single core at the right apex. Forty-five percent of that core did appear to be involved. Perineural invasion was not seen. Pathology had been reviewed at [facility]. He did have a prolonged discussion [...] the prostate Field orientation: Dynamic arc VMAT Data Entry Analyst Target Coverage (70Gy isodose line indicated): [...] Biopsy 09/01/2014 Volume in cc 15 cc Luttrell grade/score a+b=c 4+3=7-- intermediate risk prostate cancer [...] on file Occupational History ??? 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 Financial resource strain: [...] file Gets together: Not on file Attends yazdanism service: Not on file Active member of [...] or finances. He is part of a [employer] league and loves to bowl two [...] 07/16/2018-- WBC= 6.9, RBC= 3.71, HGB=8, HCT=28.5, CBGD=056, FERRITIN= 7 (L) Date PSA Testosterone (normal [...] AM EDT Office Visit Hematology/Oncology at [address] [address] Adrianne Ramon MD [facility] DR [place] [address] Yael Merlos, FIRE PREVENTION INSPECTOR [facility] DR [place] [address] 11/21/2023 10:00 AM EDT Infusion Hematology Oncology at [address] [address] 11/23/2023 11:00 AM EDT Office Visit Hematology and Oncology at [place] [phone] Reynold Proctor MD [facility] [place] [address] 11/23/2023 1:00 PM EDT Appointment Hematology and Oncology at [address] 11/23/2023 2:00 PM EDT Office Visit Hematology and Oncology at [place] [phone] Micha Gviens Jr., MD [facility] DR [place] [address] 11/23/2023 3:30 PM EDT Hospital Encounter MRI at [place] [phone] Micha Givens Jr., MD [facility] DR [place] [address] documented as of this encounter Visit Diagnoses Diagnosis Malignant neoplasm of prostate documented in this encounter Care Teams Welt Beater Relationship Specialty Start Date End Date Frederick Meade MD [address] [place] [address] PCP - General Family Medicine 11/29/17 documented as of this encounter
--- OUTSIDE RECORDS SUMMARY | 2023-11-16 19:02 | XMS_ITS | Encounter Summary ---
Author Organization [place] [address] Care Team Providers Care System Trainer Name Role Phone Frederick Meade MD Primary Care Provider [phone] [phone] Reason for Referral * Diagnostic Test (Routine) - Closed Specialty Diagnoses / Procedures Referred By Contac t Referred To Contact Cardiology Diagnoses Diffuse large B-cell lymphoma of lymph nodes of multiple regions Procedures Echocardiogram Transthoracic Adrianne Mera MD [facility] DR HEMATOLOGY [place] [address] [facility] [place] [address] Referral ID Status Reason Start Date Expiration Date V isits Requested Visits Authorized [id number] Closed Specialty Service Requested 10/11/2022 10/11/2023 1 1 Encounter Details Date Type Department Care Team (Late st Contact Info) Description 10/11/2022 Orders Only Hematology [place] [address] Adrianne Mera MD [facility] DR HEMATOLOGY [place] [address] Diffuse large B-cell lymphoma of lymph nodes [...] AM EDT Office Visit Hematology/Oncology at [address] [address] Adrianne Mera MD [facility] HEMATOLOGY [place] [address] Yael Merlos, [employer] [employer] DR HEMATOLOGY [place] [address] 11/21/2023 10:00 AM EDT Infusion Hematology Oncology at [address] [address] 11/23/2023 11:00 AM EDT Office Visit Hematology and Oncology at [place] [phone] Reynold Proctor MD [facility] [place] [address] 11/23/2023 1:00 PM EDT Appointment Hematology [place] [address] 11/23/2023 2:00 PM EDT Office Visit Hematology and Oncology at [place] [phone] Micha Givens Jr., MD [facility] DR HEMATOLOGY [place] [address] 11/23/2023 3:30 PM EDT Hospital Encounter MRI at [place] [phone] Micha Givens Jr., MD [facility] DR HEMATOLOGY [place] [address] documented as of this encounter Results * ECHO COMPLETE (10/12/2022 10:00 AM EDT) EF 49 HEARTLAB SYSTEM Anatomical Region Laterality Modality Cardiac Other 10/12/2022 9:33 AM EDT Narrative 10/12/2022 10:15 AM EDT ? Echocardiogram Report Name: CHEO MORFIN ? Study Date: 10/12/2022 09:33 AMBP: 164/86 mmHg ? Patient Location: [facility] : 1950 ? Height: 168 cm ? Account: [id number] Age: 72 yrs ? Weight: 97 kg [...] findings. No comparison study is available. Procedure Complete-[id number]. Satisfactory quality. Left Ventricle Left ventricle is [...] Date: 309:33 AMBP: 164/86 mmHg Patient Location: [facility] : 1950 Height: 168 cm Account: [id number] Age: 72 yrs Weight: 97 kg Gender: [...] findings. No comparison study is available. Procedure Complete-[id number]. Satisfactory quality. Left Ventricle Left ventricle is [...] mmHg . The estimated right atrial pressure [id number]. There is Grade I LV diastolic dysfunction [...] regions documented in this encounter Care Teams System Trainer Relationship Specialty Start Date End Date Frederick Meade MD [address] [place] [address] PCP - General Family Medicine 11/29/17 documented as of this encounter
--- OUTSIDE RECORDS SUMMARY | 2023-11-16 19:02 | XMS_ITS | Encounter Summary ---
Author Organization [facility] [place] [address] Care Team Providers Care Sample Weaver Name Role Phone Frederick Meade MD Primary Care Provider [phone] [phone] Encounter Details Date Type Department Care Team [...] AM EDT Office Visit Hematology/Oncology at [address] [address] Adrianne Ramon MD [facility] DR HEMATOLOGY [place] [address] Yael Merlos APRN [facility] DR HEMATOLOGY [place] [address] 11/21/2023 10:00 AM EDT Infusion Hematology Oncology at [address] [address] 11/23/2023 11:00 AM EDT Office Visit Hematology [place] [phone] Reynold Proctor MD [facility] [place] [address] 11/23/2023 1:00 PM EDT Appointment Hematology [place] [address] 11/23/2023 2:00 PM EDT Office Visit Hematology [place] [address] Micha Givens Jr., MD [facility] HEMATOLOGY [place] [address] 11/23/2023 3:30 PM EDT Hospital [place] [address] Micha Givens Jr., MD [facility] DR HEMATOLOGY [place] [address] documented as of this encounter Visit Diagnoses Not on filedocumented in this encounter Care Teams Sample Weaver Relationship Specialty Start Date End Date Frederick Meade MD [address] [place] [address] [address] [place] [address] PCP - General Family Medicine 11/29/17 documented as of this encounter
--- OUTSIDE RECORDS SUMMARY | 2023-11-16 19:02 | XMS_ITS | Encounter Summary ---
[place] [address] Care Team Providers Care Electronic Warfare Operator Name Role Phone Frederick Meade MD Primary Care Provider [phone] Reason for Referral * Diagnostic Test (Routine) - Closed Specialty Diagnoses / Procedures Referred By Contac t Referred To Contact Radiology Diagnoses Diffuse large B-cell lymphoma of lymph nodes of multiple regions Procedures IR Mediport Placement Adrianne Ramon MD [facility] DR [place] [address] [place] [address] Referral ID Status Reason Start Date Expiration Date V isits Requested Visits Authorized [id number] Closed Specialty Service Requested 10/11/2022 04/13/2024 1 [...] [facility] [address] [place] [address] [place] [address] Referral ID Status Reason Start Date Expiration Date V isits Requested Visits Authorized [id number] Closed Specialty Service Requested 10/10/2022 04/12/2024 1 2 Reason for Visit * Consultation (Routine) - Closed Specialty Diagnoses / Procedures Referred By Contac t Referred To Contact Hematology and Oncology Diagnoses Diffuse large B-cell lymphoma, unspecified body region Lg Ramírez MD [address] [place] [address] Hem Onc Office [address] [place] [phone] Referral ID Status Reason Start Date Expiration Date V isits Requested Visits Authorized [id number] Closed Consult, Test & Treat 10/10/2022 10/10/2023 1 1 Encounter Details Date Type Department Care Team (Late st Contact Info) Description 10/11/2022 12:00 PM EDT Office Visit Hematology/Oncology at [address] [phone] Adrianne Ramon MD [facility] [address] [place] [address] Non-Hodgkin lymphoma of lymph nodes of multiple [...] - 10/11/2022 12:00 PM EDT Hematology Clinic [facility] [place] [address] NEW PATIENT EVALUATION Patient Active Problem List [...] ~2 weeks ago saw [facility] in [facility] and when to [facility]. No beds so sent to [facility] [...] at [facility] was 01/17/2012. This dictation platform is no longer active. Please use ElectroJeton. ONCOLOGY HISTORY: Intermediate risk prostate cancer (4+3, [...] Freire. Enjoys reads, movies, race car, cards. [employer]. 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 Not a . ETOH: 1-3 beers per week Smoking: Quit 1985. Approximately 16-tqkq-zafw history Vaping or electronic cigarettes: denies Chewing [...] and BCL-2 protein (Double Expressor.) Flow cytometry ([id number]) supports this interpretation. The differential classification of this lesion is diffuse large B-cell lymphoma versus high grade B-cell lymphoma with MYC and BCL-2 rearrangement. Material has been sent to [facility] to assess the status [...] treatment. We will obtain his pathology from [facility], but it appears to be [...] will plan to see him tomorrow at [facility] after the PET scan for brief review of the PET scan and discussion of next steps. I did explain to the patient and his family that he most likely will receive R-CHOP chemotherapy which is given 1 day as an outpatient and [facility] and repeated every 3 weeksfor a total of 6 cycles. This takes about 4-1/2 months to complete. I anticipate his lymphoma will respond well. Suspected MEHNAZ - Hgb drop 3gm in last 2 weeks. Taking oral iron 2 tabs per day. 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 No COLO in last 10 years. Will add iron studies to labs today and check PET tomorrow.Will follow. Labs seem most consistent with anemia of chronic disease. Prostate Cancer -DAVE at this time Plan: PET tomorrow [facility] Obtain Path for review at [facility] - follow on FISH Obtain records from [facility] -CT chest abdomen and pelvis, discharge summary, and MRI Prednisone -we will hold for now. Await PET scan tomorrow. Mediport -order placed and requested today PTI -on 10/18 at 8 AM with Yael Merlos at [facility] ECHO-tomorrow at [facility] Add on MEHNAZ labs -results returned and listed above Labs on day of PET at [facility] Consult social work at next visit -not yet discussed Consult nutrition at next visit -not yet discussed Plan allopurinol X 14 d w/ C#1 Support with Onpro ID - acv prophy - add antibiotics only if neutropenic. Labs tomorrow at [facility] - hep B/C, HIV, uric I discussed all of the above with the patient and all of his questions were answered. Support and counseling as appropriate. This note was written or modified using rankdesk voice recognition software. The final note was screened for yeast washer errors. Please excuse any remaining errors. total time: time in counselling: Copy Frederick Meade MD * Polly Oerllana RN - 10/11/2022 12:00 PM EDT [facility] Patient Medical Oncology Note SOCIAL ASSESSMENT: See [facility] social assessment information entered. 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 Need FMLA paperwork signed [...] [ ] no Local Pharmacy: [facility] FUNCTIONAL SCREENING: Balance difficulty: [ x [...] AM EDT Office Visit Hematology/Oncology at [address] [phone] Adrianne Ramon MD [facility] DR [place] [address] Yael Merlos APRN [facility] [place] [address] 11/21/2023 10:00 AM EDT Infusion Hematology Oncology at [address] [phone] 11/23/2023 11:00 AM EDT Office Visit Hematology and Oncology at [place] [phone] Reynold Proctor MD [facility] [place] [address] 11/23/2023 1:00 PM EDT Appointment Hematology and Oncology at [place] [phone] 11/23/2023 2:00 PM EDT Office Visit Hematology and Oncology at [place] [phone] Micha Givens Jr., MD [facility] [place] [address] 11/23/2023 3:30 PM EDT Hospital Encounter MRI at [place] [phone] Micha Givens Jr., MD [facility] [place] [address] Scheduled Orders Name Type Priority Associated Diagnoses [...] Uric Acid 5.5 3.5 - 8.5 mg/dL [facility] Blood 03/06/2023 7:45 AM EST 03/06/2023 8:00 AM EST Narrative Resulting Agency Comment Spec In Lab Adrianne Ramon MD CHEMISTRY ORDERA BLES [facility] [address] * Lactate Dehydrogenase (03/06/2023 7:45 AM EST) Lactate Dehydrogenase 198 110 - 220 unit/L [facility] Blood 03/06/2023 7:45 AM EST 03/06/2023 8:00 AM EST Narrative Resulting Agency Comment Spec In Lab Adrianne Ramon MD CHEMISTRY ORDERA BLES Performing Organization Address City/[facility] Co de Phone Number [facility] [address] * (ABNORMAL) Immunoglobulins, Quantitative (03/06/2023 7:45 AM EST) Immunoglobulin G 572(L) 700 - 1,600 mg/dL [facility] Comment: Pediatric Reference Intervals obtained from the Caliper Reference Interval project. http://www.[employer].ca/caliperproject/index.html IgA 118 70 - 400 mg/dL [facility] IgM 123 40 - 230 mg/dL [facility] Blood 03/06/2023 7:45 AM EST 03/06/2023 8:00 AM EST Narrative Resulting Agency Comment Spec In Lab Adrianne Ramon MD CHEMISTRY ORDERA BLES Performing Organization Address [facility] Co de Phone Number [facility] [address] * (ABNORMAL) Comprehensive metabolic panel (non-fasting) (03/06/2023 7:45 AM EST) Glucose 133 65 - 199 mg/dL [facility] Comment:Diabetes: >=200 mg/d L plus symptoms Blood Urea Nitrogen 12 10 - 20 mg/dL [facility] Creatinine 0.94 0.80 - 1.50 mg/dL [facility] Sodium 143 135 - 145 mmol/L [facility] Potassium 3.7 3.5 - 5.0 mmol/L [facility] Comment: Please note: ??Patients with WBC >100,000 may have falsely elevated Potassium levels. ??For accurate Potassium quantification in these patients send serum separator tube (gold top) for subsequent determinations. ??Contact the Clinical Chemistry Laboratory if there are any questions. Chloride 108(H) 98 - 107 mmol/L [facility] Carbon Dioxide 23 22 - 31 mmol/L [facility] Anion Gap 12 5 - 15 mmol/L [facility] Calcium 9.6 8.5 - 10.5 mg/dL [facility] Protein, Total 6.4 6.1 - 8.0 g/dL [facility] Albumin 4.1 3.2 - 5.2 g/dL [facility] Aspartate Aminotransferase 22 0 - 39 unit/L [facility] Alanine Aminotransferase 18 0 - 55 unit/L [facility] Alkaline Phosphatase 103 40 - 130 unit/L [facility] Bilirubin, Total 0.2 0.2 - 1.3 mg/dL [facility] Est Glomerular Filtration Rate 85 >=60 mL/min/1. 73 m?? [facility] Comment: This patient's estimated GFR was [...] Lab Adrianne Ramon MD CHEMISTRY ORDERA DANICAS [facility] [address] * HIV Screen, 4th Generation ([facility]/CGP/APD/NLH) (10/17/2022 11:45 AM EDT) HIV Ab/Ag Screen Negative Negative [facility] Comment: This 4th Generation HIV test [...] HIV Comment Low Risk of HIV Infection [facility] Blood 10/17/2022 11:4 5 AM EDT 10/17/2022 12:08 PM EDT Narrative Resulting Agency Comment Spec In Lab Adrianne Ramon MD CHEMISTRY ORDERA BLES Performing Organization Address City/[facility] Co de Phone Number [facility] [address] * Hepatitis C Antibody (10/17/2022 11:45 AM EDT) Hepatitis C Antibody Negative Negative [facility] Blood 10/17/2022 11:4 5 AM EDT 10/17/2022 12:08 PM EDT Narrative Resulting Agency Comment Spec In Lab Adrianne Ramon MD CHEMISTRY ORDERA BLES Performing Organization Address [facility] Co de Phone Number [facility] [address] * IR Mediport Placement (10/17/2022 10:44 AM EDT) Anatomical Region Laterality Modality X-Ray Angiograph y Narrative 10/17/2022 11:06 AM EDT Interventional Radiology Procedure Note Procedure: Subcutaneous venous port implant Indication: Diffuse large B-cell lymphoma, durable [facility] central venous access for chemotherapy Procedure summary: [...] who have questions please contact the health nanny caregiver that requested your imaging first. ? Electronically signed by: Rohan Henley MD, [facility] ([phone]), at 10/12/2022 3:23 PM Narrative 10/12/2022 3:23 PM EDT EXAMINATION: NM PET CT STANDARD PLUS EXTREMITIES AND HEAD CLINICAL HISTORY: Non-Hodgkin lymphoma, staging new large B cell lymphoma - involving oropharynx/ cervical. ??staging. TECHNIQUE: Procedure: Following IV injection of 98-wblzrt-7-deoxyglucose (FDG) a standard uptake of approximately 60 [...] staging. TECHNIQUE: Procedure: Following IV injection of 74-wsbvhe-2-deoxyglucose(FDG) a standard uptake of approximately 60 minutes, [...] patients who have questions please contactthe health nanny caregiver that requested your imaging first. Electronically signed by: Rohan Henley MD, [facility]([phone]), at 10/12/2022 3:23 PM Adrianne Ramon MD IMG PET ORDERABL ES * Comprehensive metabolic panel (non-fasting) (10/11/2022) Pathologist [facility] Blood Urea Nitrogen 20 Creatinine 1.2 Sodium 134 Potassium 4.0 Bilirubin, Total 0.3 Aspartate Aminotransferase 15 Alanine Aminotransferase 49 Lactate Dehydrogenase 283 Iron 62 Iron Saturation 29 Ferritin 139 TIBC 214 Blood 10/11/2022 Historical Provider CHEMISTRY ORDERAB LES * CBC (with Diff) (10/11/2022) Pathologist [facility] White Blood Cell 11.95 Hemoglobin 10.8 Hematocrit 32.1 Platelet 290 Neutrophil Absolute (ANC) - Automated 9.67 Blood 10/11/2022 Historical Provider HEMATOLOGY ORDERA BLES * Comprehensive metabolic panel (non-fasting) (09/30/2022) Pathologist [facility] Glucose 129 Blood Urea Nitrogen 24 Creatinine [...] regions documented in this encounter Care Teams Electronic Warfare Operator Relationship Specialty Start Date End Date Frederick Meade MD [address] [place] [address] PCP - General Family Medicine 11/29/17 documented as of this encounter
--- OUTSIDE RECORDS SUMMARY | 2023-11-16 19:02 | XMS_ITS | Encounter Summary ---
Author Organization [facility] [place] [address] Care Team Providers Care Media Supervisor Name Role Phone Frederick Meade MD Primary Care Provider [phone] Reason for Referral * Consultation (Routine) - Closed Specialty Diagnoses / Procedures Referred By Contac t Referred To Contact Hematology and Oncology Diagnoses Diffuse large B-cell lymphoma, unspecified body region Lg Ramírez MD [address] [place] [address] [facility] Hem Onc Office [address] [place] [phone] Referral ID Status Reason Start Date Expiration Date V isits Requested Visits Authorized [id number] Closed Consult, Test & Treat 10/10/2022 10/10/2023 1 1 Encounter Details Date Type Department Care Team (Late st Contact Info) Description 10/10/2022 Transcribe Orders eDH Incoming Referrals [phone] Lg Ramírez MD [address] [place] [address] [phone] Diffuse large B-cell lymphoma, unspecified body region [...] AM EDT Office Visit Hematology/Oncology at [address] [phone] Adrianne Ramon MD [facility] HEMATOLOGY [place] [address] Yael Merlos APRN [facility] HEMATOLOGY [place] [address] 11/21/2023 10:00 AM EDT Infusion Hematology Oncology at [address] [phone] 11/23/2023 11:00 AM EDT Office Visit [place] [address] Reynold Proctor MD [facility] [place] [address] 11/23/2023 1:00 PM EDT Appointment H[place]ology [place] [address] 11/23/2023 2:00 PM EDT Office Visit [place]ology [place] [phone] Micha Givens Jr., MD [facility] DR HEMATOLOGY [place] [address] 11/23/2023 3:30 PM EDT [place] [address] Micha Givens Jr., MD [facility] DR HEMATOLOGY [place] [address] Scheduled Referrals Name Type Priority Associated Diagnoses Orde r Schedule Referral to Hematology and Oncology Outpatient Referral Routine Diffuse large B-cell lymphoma, unspecified body region Ordered: 10/10/2022 documented as of this encounter Visit Diagnoses Diagnosis Diffuse large B-cell lymphoma, unspecified body region documented in this encounter Care Teams Media Supervisor Relationship Specialty Start Date End Date Frederick Meade MD [address] [place] [address] [address] [place] [address] PCP - General Family Medicine 11/29/17 documented as of this encounter
--- OUTSIDE RECORDS SUMMARY | 2023-11-16 19:02 | XMS_ITS | Encounter Summary ---
Author Organization [facility], 1930–[address] [place] [address] Care Team Providers Care Cooler Worker Name Role Phone Frederick Meade MD Primary Care Provider [phone] Encounter Details Date Type Department Care Team [...] AM EDT Office Visit Hematology/Oncology at [address] [phone] Adrianne Ramon MD [facility] DR [place] [address] Yael Merlos APRN [facility] [address] [place] [address] 11/21/2023 10:00 AM EDT Infusion Hematology Oncology at [address] [phone] 11/23/2023 11:00 AM EDT Office Visit Hematology [place] [phone] Reynold Proctor MD [facility] [place] [address] 11/23/2023 1:00 PM EDT Appointment Hematology [place] [phone] 11/23/2023 2:00 PM EDT Office Visit [place]ematology [place] [phone] Micha Givens Jr., MD [facility] [place] [address] 11/23/2023 3:30 PM EDT [place] [address] Micha Givens Jr., MD [facility] DR [place] [address] documented as of this encounter Visit Diagnoses Not on filedocumented in this encounter Care Teams Cooler Worker Relationship Specialty Start Date End Date Frederick Meade MD [address] [place] [address] [address] [place] [address] PCP - General Family Medicine 11/29/17 documented as of this encounter
--- OUTSIDE RECORDS SUMMARY | 2023-11-16 19:02 | XMS_ITS | Encounter Summary ---
[place] [address] Care Team Providers Care Head Of Product Name Role Phone Frederick Meade MD Primary Care Provider [phone] Encounter Details Date Type Department Care Team (Late st Contact Info) Description 03/17/2019 10:00 AM EST Office Visit Radiation Oncology at [address] [phone] Nitin Stauffer MD [address] [place] [address] DR RADIATION ONCOLOGY [place], [place] [id number] Malignant neoplasm of prostate Social History Tobacco [...] Nitin Stauffer MD, MS Radiation Oncology [facility] [phone] (paging automatic fancy machine operator) Pager #[phone] Patient ID: Cheo Freire is a 64 [...] totally confined to bed or chair IMPRESSION/PLAN intermediate card tender effects from radiotherapy: Biochemically and clinically DAVE. No significant intermediate adverse effects from RT/ADT. Followup: Given persistently [...] minute visit was spent with the patient [id number] reviewing his interval medical history and answering questions related to his prostate cancer. documented in this encounter Plan of Treatment Upcoming Encounters Date Type Department Care Team (Late st Contact Info) Description 11/21/2023 9:30 AM EDT Office Visit Hematology/Oncology at [address] [phone] Adrianne Ramon MD [facility] [place] [address] Yael Merlos APRN [facility] [place] [address] 11/21/2023 10:00 AM EDT Infusion Hematology Oncology at [address] [phone] 11/23/2023 11:00 AM EDT Office Visit Hematology and Oncology at [place] [phone] Reynold Proctor MD [facility] [place] [address] 11/23/2023 1:00 PM EDT Appointment Hematology and Oncology at [place] [phone] 11/23/2023 2:00 PM EDT Office Visit Hematology and Oncology at [place] [phone] Micha Givens Jr., MD [facility] [place] [address] 11/23/2023 3:30 PM EDT Hospital Encounter MRI at [place] [phone] Micha Givens Jr., MD [facility] [place] [address] documented as of this encounter Visit Diagnoses Diagnosis Malignant neoplasm of prostate documented in this encounter Care Teams Head Of Product Relationship Specialty Start Date End Date Frederick Meade MD [address] [place] [address] PCP - General Family Medicine 11/29/17 documented as of this encounter
--- OUTSIDE RECORDS SUMMARY | 2023-11-16 19:02 | XMS_ITS | Encounter Summary ---
Author Organization [facility] [place] [address] Care Team Providers Care Medical And Scientific Illustrator Name Role Phone Frederick Meade MD Primary Care Provider [phone] Reason for Referral * Diagnostic Test (Routine) - Closed Specialty Diagnoses / Procedures Referred By Contac t Referred To Contact Radiology Diagnoses Non-Hodgkin lymphoma of lymph nodes of multiple regions, unspecified non-Hodgkin lymphoma type Diffuse large B-cell lymphoma of lymph nodes of multiple regions Procedures NM PET CT Standard Plus Extremities and Head Adrianne Ramon MD [facility] [place] [address] [place] [address] Referral ID Status Reason Start Date Expiration Date V isits Requested Visits Authorized [id number] Closed Specialty Service Requested 10/10/2022 04/12/2024 1 [...] Plus Extremities and Head Adrianne Ramon MD [facility] [address] [place] [address] [place] [address] Referral ID Status Reason Start Date Expiration Date V isits Requested Visits Authorized [id number] Closed Specialty Service Requested 10/10/2022 04/12/2024 1 2 Encounter Details Date Type Department Care Team (Late st Contact Info) Description 10/12/2022 10:26 AM EDT - 10/12/2022 11:59 PM EDT Hospital Encounter [place] [phone] Adrianne Ramon MD [facility] [address] [place] [address] Non-Hodgkin lymphoma of lymph nodes [...] AM EDT Office Visit Hematology/Oncology at [address] [address] Adrianne Ramon MD [facility] [place] [address] Yael Merlos, ORTHOTICS PROSTHETICS TECHNICIAN [facility] [place] [address] 11/21/2023 10:00 AM EDT Infusion Hematology Oncology at [address] [address] 11/23/2023 11:00 AM EDT Office Visit Hematology [place] [address] Reynold Proctor MD [facility] [place] [address] 11/23/2023 1:00 PM EDT Appointment Hematology [place] [address] 11/23/2023 2:00 PM EDT Office Visit Hematology [place] [phone] Micha Givens Jr., MD [facility] [address] [place] [address] 11/23/2023 3:30 PM EDT Hospital Encounter MRI at [place] [phone] Micha Givens Jr., MD [facility] [address] [place] [address] documented as of this encounter Procedures Procedure [...] who have questions please contact the health client care representative that requested your imaging first. ? Electronically signed by: Rohan Henley MD, [facility] ([phone]), at 10/12/2022 3:23 PM Narrative 10/12/2022 3:23 PM EDT EXAMINATION: NM PET CT STANDARD PLUS EXTREMITIES AND HEAD CLINICAL HISTORY: Non-Hodgkin lymphoma, staging new large B cell lymphoma - involving oropharynx/ cervical. ??staging. TECHNIQUE: Procedure: Following IV injection of 71-oiymmb-7-deoxyglucose (FDG) a standard uptake of approximately 60 [...] staging. TECHNIQUE: Procedure: Following IV injection of 96-ldgoyn-0-deoxyglucose(FDG) a standard uptake of approximately 60 minutes, [...] patients who have questions please contactthe health client care representative that requested your imaging first. Electronically signed by: Rohan Henley MD, [facility]([phone]), at 10/12/2022 3:23 PM Adrianne Ramon MD [...] mCi documented in this encounter Care Teams Medical And Scientific Illustrator Relationship Specialty Start Date End Date Frederick Meade MD [address] [place] [address] PCP - General Family Medicine 11/29/17 documented as of this encounter
--- OUTSIDE RECORDS SUMMARY | 2023-11-16 19:02 | XMS_ITS | Encounter Summary ---
[place] [address] Care Team Providers Care Data Operations Director Name Role Phone Frederick Meade MD Primary Care Provider [phone] Encounter Details Date Type Department Care Team (Late Contact Info) Description 09/22/2022 Notes [place] [address] Karly Jacobs MD [facility] [place] [address] Social History Tobacco Use Types Packs/Day Years [...] AM EDT Office Visit Hematology/Oncology at [address] [address] Adrianne Ramon MD [facility] HEMATOLOGY [place] [address] Yael Merlos, HEAVY MEDIA OPERATOR [facility] DR HEMATOLOGY [place] [address] 11/21/2023 10:00 AM EDT Infusion Hematology Oncology at [address] [address] 11/23/2023 11:00 AM EDT Office Visit Hematology and Oncology at [address] Reynold Proctor MD [facility] [place] [address] 11/23/2023 1:00 PM EDT Appointment Hematology and Oncology at [place] [address] 11/23/2023 2:00 PM EDT Office Visit Hematology and Oncology at [address] Micha Givens Jr., MD [facility] DR [place] [address] 11/23/2023 3:30 PM EDT Hospital Encounter MRI at [place] [phone] Micha Givens Jr., MD [facility] [address] [place] [address] documented as of this encounter Visit Diagnoses Not on filedocumented in this encounter Care Teams Data Operations Director Relationship Specialty Start Date End Date Frederick Meade MD [address] [place] [address] PCP - General Family Medicine 11/29/17 documented as of this encounter
--- OUTSIDE RECORDS SUMMARY | 2023-11-16 19:02 | XMS_ITS | Encounter Summary ---
Author Organization [facility] [place] [address] Care Team Providers Care Financial Institution Branch Manager Name Role Phone Frederick Meade MD Primary Care Provider [phone] Reason for Referral * Consultation (Urgent) - Closed Specialty Diagnoses / Procedures Referred By Paul bowen Referred To Contact Cardiology Diagnoses Diffuse large B-cell lymphoma of lymph nodes of multiple regions CARD-ONC Pt w/o cardiac hx. New lymphoma. Needs anthracycline. Echo w/ EF 49% & mild global hypokinesis. Please eval for ongoing anthracycline safety. Adrianne Mera MD [facility] DR HEMATOLOGY [place] [address] Chalo Mcintyre MD [facility] [address] Referral ID Status Reason Start Date Expiration Date V isits Requested Visits Authorized [id number] Closed Consult, Test & Treat 10/12/2022 10/12/2023 1 1 * Diagnostic Test (Routine) - Closed Specialty Diagnoses / Procedures Referred By Paul bowen Referred To Contact Cardiology Diagnoses Diffuse large B-cell lymphoma of lymph nodes of multiple regions Procedures Echocardiogram Transthoracic Adrianne Mera MD [facility] HEMATOLOGY [place] [address] [facility] [place] [address] Referral ID Status Reason Start Date Expiration Date V isits Requested Visits Authorized [id number] Closed Specialty Service Requested 10/12/2022 10/12/2023 1 1 Reason for Visit * Reason Comments Follow-up Encounter Details Date Type Department Care Team (Late st Contact Info) Description 10/12/2022 1:30 PM EDT Office Visit Hematology [place] [address] Adrianne Mera MD [facility] [address] [place] [address] Adrianne Aquino APRN [facility] [place] [address] Diffuse large B-cell lymphoma of [...] - 10/12/2022 1:30 PM EDT [place] [address] NEW PATIENT EVALUATION Patient Active [...] [facility] and when to [facility]. No beds so sent to [facility] for [address]. [address] CAP, MRI,and [...] at [facility] was 01/17/2012. Cheo returns [...] only 1 biologic. Son Cheo Freire. Enjoys [employer], [employer], race car, cards. [employer]. 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 Not a . ETOH: 1-3 beers per week Smoking: Quit 1985. Approximately 82-dziw-kicr history Vaping or electronic cigarettes: denies Chewing [...] Result Value Ref Range Surgical Pathology Report [id number] Location: [facility] The signing pathologist has (i) examined the relevant preparation(s) for the specimen(s) and (ii) rendered or confirmed the diagnosis(es). . Surgical Pathology DIAGNOSIS CONSULTATION CASE A. TONGUE, LEFT BASE (BIOPSY); [OSR# [id number], COLLECTED 10/05/2022, 12 SLIDES]: 1. Diffuse large B-cell lymphoma, activated B-cell subtype (ABC-DLBCL) (see comment) 2. Ki67 proliferation estimated at >95%, lymphoma coexpresses BCL2 and CMYC Electronically signed by: Ole Bowen MD Verified: 10/12/2022 11:37 Hematopathologist Performed at: -[facility] Dept. of Pathology, [place] [address] Yarn Dyer: Katherine Lopez MD, FCAP, [place] Certificate: [id number] DISCUSSION Per report from the referring institution, ...Flow cytometry ([id number]) supports this interpretation. FISH studies were reportedly sent to [facility] to assess for [...] referring facility, but included for evaluation at [facility]. Appropriate controls are included for each case. . SPECIMEN(S) SUBMITTED CONSULTATION CASE A - 12 slide(s) labeled [id number], collection date 10/05/2022. [id number] CARBON COPY: [facility] Surgical Pathology Department [facility], [facility], 2nd Floor [address] [place] [address] CLINICAL INFORMATION A 72 year old man. Per provided report, there is a clinical history of Massive LAD, history of prostate cancer; clinical diagnosis code: R59.1. SPECIMEN PROCESSING [facility] ([facility]) pathology slide(s) are reviewed. Refer to Diagnosis and Specimen Submitted for specific case information. For the full text of the [facility] report(s) please refer to the [...] and BCL-2 protein (Double Expressor.) Flow cytometry ([id number]) supports this interpretation. The differential classification of this lesion is diffuse large B-cell lymphoma versus high grade B-cell lymphoma with MYC and BCL-2 rearrangement. Material has been sent to [facility] to assess the status of these genes by FISH and an addendum report with a definitive classification will be issued upon receipt of the result. CD3 (SP7, Thermo Scientific) Background T-cells CD20 (L26, [place]) diffusely positive in Neoplastic B-cells PAX-5 (1EW, Leica) diffusely positive in Neoplastic B-cells CD10 (SP67, [place]) Negative BCL-6 (G/191E/A8, [place]) Positive MUM-1 (MUM1p, Dako) Positive Myc (Y69, [employer]cam) Positive BCL-2 Oncoprotein (124, [place]) Positive Ki67 (MIB-1) (K2, Leica) Greater than 95% of cells in cycle Cyclin D1(SP4-R, [place]) Negative SAPPHIRE JOSE (ZBQ4268-S, Leica) Negative. DIAGNOSTICS: 10/11/22 ECHO EF = [...] chemotherapy. Furtherprednisone prescriptions will be given by [facility], during PTI chemotherapy teaching Cardiac - EF 49%. No stress test in past. Suspected MEHNAZ - Hgb drop 3gm in last 2 weeks. Taking oral iron 2 tabs per day. Stools have been pig lead melter helper recently. No COLO in last 10 years. Will add iron studies to labs today and check PET tomorrow.Will follow. Labs seem most consistent with anemia of chronic disease. Prostate Cancer -DAVE at this time Plan: Follow up on FISH for MYC, BCL-2 and BLC-6 -UV sent these tests out to [place] Prednisone -100 mg on 10/14 and 10/15. [...] appreciate her help. ECHO following C#1 at [facility] approx 10/20/22 Urgent referral to cardiology. Matthew Mcintyre requested. [facility] or [place] I discussed all of the above with the patient and all of his questions were answered. Support and counseling as appropriate. This note was written or modified using [employer] voice recognition software. The final note was screened for hogshead hooper errors. Please excuse any remaining errors. Addendum staff message from Matthew Mcintyre, Cardiology: Adrianne; Thanks for the message; will see if we can see him up in [place]. On review of his CT, he has [...] AM EDT Office Visit Hematology/Oncology at [address] [address] Adrianne Mera MD [facility] HEMATOLOGY [place] [address] Yael Merlos, SUPERVISOR NUT PROCESSING [facility] [place] [address] 11/21/2023 10:00 AM EDT Infusion Hematology Oncology at [address] [address] 11/23/2023 11:00 AM EDT Office Visit Hematology [place] [phone] Reynold Proctor MD [facility] [place] [address] 11/23/2023 1:00 PM EDT Appointment Hematology [place] [address] 11/23/2023 2:00 PM EDT Office Visit Hematology [place] [address] Micha Givens Jr., MD [facility] [address] [place] [address] 11/23/2023 3:30 PM EDT Hospital [place] [address] Micha Givens Jr., MD [facility] [place] [address] Scheduled Referrals Name Type Priority Associated Diagnoses [...] 1950 ? Height: 169 cm ? Account: [id number] Age: 72 yrs ? Weight: 93 kg Gender: Male ?BSA: 2.0 m2 Ordering Physician: ADRIANNE MERA Referring Physician: ADRIANNE MERA Performed By: SHAHANA Fernando Reason For Study: Lymphoma Exam Location: [facility]. Interpretation Summary LV systolic function appears to be low-normal. LV ejection fraction appears to be 52%. Global longitudinal strain is measured at -16.6 %. (GE). There are no segmental wall motion abnormalities. Normal right ventricle. No significant valvular abnormalities. Trivial pericardial effusion. On direct comparison to prior echo dated 10/12/2022, the LV function has slightly improved. Procedure Limited - 97733. Left ventricular strain. Satisfactory quality. There is [...] Location: : 1950 Height: 169 cm Account: [id number] Age: 72 yrs Weight: 93 kg Gender: Male BSA: 2.0 m2 Ordering Physician: ADRIANNE MERA Referring Physician: ADRIANNE MERA Performed By: SHAHANA Fernando Reason For Study: Lymphoma Exam Location: [facility]. Interpretation Summary LV systolic function appears to be low-normal. LV ejection fractionappears to be 52%. Global longitudinal strain is measured at -16.6 %. (GE). There areno segmental wall motion abnormalities. Normal right ventricle. No significant valvular abnormalities. Trivial pericardial effusion. On direct comparison to prior echo dated 10/12/2022, the LV function hasslightly improved. Procedure Limited - [id number]. Left ventricular strain. Satisfactory quality. There isnormal [...] documented in this encounter Care Teams Financial Institution Branch Manager Relationship Specialty Start Date End Date Frederick Meade MD [address] [place] [address] PCP - General Family Medicine 11/29/17 documented as of this encounter
--- OUTSIDE RECORDS SUMMARY | 2023-11-16 19:02 | XMS_ITS | Encounter Summary ---
Author Organization [facility] [place] [address] Care Team Providers Care Turning Lathe Tender Name Role Phone Frederick Meade MD Primary Care Provider [phone] Reason for Visit * Treatment/Therapy Plan Authorization [...] [facility] [address] [place] [address] [facility] Infusion [address] [place] [address] Referral ID Status Reason Start Date Expiration Date Visits Re quested Visits Authorized [id number] Closed 10/11/2022 10/11/2023 1 100 Encounter Details Date Type Department Care Team (Latest Contact Info) Description 10/17/2022 11:16 AM EDT - 10/17/2022 11:59 PM EDT Hospital Encounter [place] [address] Diffuse large B-cell lymphoma of [...] flushed, left accessed for tomorrow infusion at [facility] documented in this encounter Plan of Treatment Upcoming Encounters Date Type Department Care Team (Late st Contact Info) Description 11/21/2023 9:30 AM EDT Office Visit Hematology/Oncology at [address] [phone] [facility] DR [place] [address] [facility] DR [place] [address] 11/21/2023 10:00 AM EDT Infusion Hematology Oncology at [address] [phone] 11/23/2023 11:00 AM EDT Office Visit Hematology and Oncology at [place] [phone] [facility] [place] [address] 11/23/2023 1:00 PM EDT Appointment [place] [phone] 11/23/2023 2:00 PM EDT Office Visit [place] [phone] Micha Givens Jr., MD [facility] [place] [address] 11/23/2023 3:30 PM EDT [place] [phone] Micha Givens Jr., MD [facility] [place] [address] Scheduled Orders Name Type Priority Associated Diagnoses [...] of multiple regions HIV SCREEN, 4TH GENERATION ([facility]/CGP/APD/NLH) STAT 10/17/2022 11:45 AM EDT Diffuse [...] Peripheral Blood (10/17/2022 11:45 AM EDT) Pathologist [facility] Plat estimate Normal [facility] RBC Morphology Abnormal [facility] Ovalocytes 1-5 /HPF [facility] Tear Cell 1-5 /HPF [facility] Blood 10/17/2022 11:4 5 AM EDT 10/17/2022 12:08 PM EDT Narrative Resulting Agency Comment Spec In Lab Adrianne Ramon MD HEMATOLOGY ORDER DUONG [facility] [place] [address] * (ABNORMAL) Differential, Automated (10/17/2022 11:45 AM EDT) Neutrophil % 68.0 % [facility] Neutrophil Absolute 7.17(H) 1.70 - 6.10 x10(3)/mc L [facility] Lymph % 13.6 % [facility] Lymphocytes Abs 1.4 0.9 - 3.2 x10(3)/[facility] Monocyte % 14.8 % [facility] Monocyte Abs 1.6(H) 0.3 - 0.9 x10(3)/[facility] Eos % 2.8 % [facility] Eosinophils Abs 0.3 0.0 - 0.4 x10(3)/[facility] Basophil % 0.3 % [facility] Baso Absolute 0.0 0.0 - 0.1 x10(3)/[facility] Immature Gran % 0.50 % [facility] Comment: Immature granulocytes(IG's)percentage and absolute count will include metamyelocytes, myelocytes, and promyelocytes. Blood smears from CBCs yielding IG's will be scanned manually for concordance. If this scan disagrees with the automated IG or if promyelocytes are noted, a manual differential will be performed. Immature Gran Absolute 0.05(H) 0.00 - 0.04 x10(3)/[facility] Blood 10/17/2022 11:4 5 AM EDT 10/17/2022 12:08 PM EDT Narrative Resulting Agency Comment Spec In Lab Adrianne Ramon MD HEMATOLOGY ORDER DUONG [facility] [place] [address] * (ABNORMAL) Hemogram (10/17/2022 11:45 AM EDT) White Blood Cell 10.6(H) 4.0 - 9.5 x10(3)/[facility] Red Blood Cell 3.68(L) 4.58 - 5.54 x10(6)/[facility] Hemoglobin 11.3(L) 13.7 - 16.5 g/dL [facility] Hematocrit 33.8(L) 40.5 - 48.5 % [facility] Mean Cell Volume 91.8 82.9 - 93.1 fL [facility] Mean Cell Hemoglobin 30.7 27.5 - 32.1 pg [facility] Mean Cell Hemoglobin Concentration 33.4 32.0 - 35.7 g/dL [facility] Platelet 261 145 - 357 x10(3)/mc L [facility] RDW Standard Deviation 49.5(H) 36.0 - 45.0 fL [facility] RDW coefficient of variation 14.6(H) 11.4 - 13.8 % [facility] Mean Platelet Volume 9.4 7.6 - 12.9 fL [facility] NRBC% auto 0.0 % [facility] NRBC Absolute 0.000 0.000 - 0.000 x10(3)/mc L [facility] Blood 10/17/2022 11:4 5 AM EDT 10/17/2022 12:08 PM EDT Narrative Resulting Agency Comment Spec In Lab Adrianne Ramon MD HEMATOLOGY ORDER DUONG Performing Organization Address City/[facility]/ZIP Co de Phone Number [facility] [place] [address] * Hepatitis C Antibody (10/17/2022 11:45 AM EDT) Hepatitis C Antibody Negative Negative [facility] Blood 10/17/2022 11:4 5 AM EDT 10/17/2022 12:08 PM EDT Narrative Resulting Agency Comment Spec In Lab Adrianne Ramon MD CHEMISTRY ORDERA BLES Performing Organization Address City/[facility]/ZIP Co de Phone Number [facility] [place] [address] * HIV Screen, 4th Generation ([facility]/CGP/APD/NLH) (10/17/2022 11:45 AM EDT) HIV Ab/Ag Screen Negative Negative [facility] Comment: This 4th Generation HIV test [...] Comment Low Risk of HIV Infection [facility] Blood 10/17/2022 11:4 5 AM EDT 10/17/2022 12:08 PM EDT Narrative Resulting Agency Comment Spec In Lab Adrianne Ramon MD CHEMISTRY ORDERA BLES [facility] [place] [address] * Hepatitis B Surface Antibody (10/17/2022 11:45 AM EDT) Hepatitis B Surface Antibody, Quantitative <3.5 IU/L [facility] Comment: HepB Surface Ab Quant: Unvaccinated: < 8.5 IU/L Vaccinated: >= 11.5 IU/L Hepatitis B Surface Antibody Negative [facility] Comment: Patient is presumed to be not vaccinated or immune to HBV infection. Expected Results: Vaccinated: Positive Unvaccinated: Negative Blood 10/17/2022 11:4 5 AM EDT 10/17/2022 12:08 PM EDT Narrative Resulting Agency Comment Spec In Lab Adrianne Ramon MD CHEMISTRY ORDERA BLES Performing Organization Address City/[facility]/ZIP Co de Phone Number [facility] [place] [address] * Hepatitis B Surface Antigen (10/17/2022 11:45 AM EDT) Hepatitis B Surface Antigen Negative Negative [facility] Blood 10/17/2022 11:4 5 AM EDT 10/17/2022 12:08 PM EDT Narrative Resulting Agency Comment Spec In Lab Adrianne Ramon MD CHEMISTRY ORDERA BLES [facility] [place] [address] * Hepatitis B Core Antibody, Total (10/17/2022 11:45 AM EDT) Hepatitis B Core Antibody Negative Negative [facility] Blood 10/17/2022 11:4 5 AM EDT 10/17/2022 12:08 PM EDT Narrative Resulting Agency Comment Spec In Lab Adrianne Ramon MD CHEMISTRY ORDERA BLES [facility] [place] [address] * Uric acid (10/17/2022 11:45 AM EDT) Uric Acid 5.3 3.5 - 8.5 mg/dL [facility] Blood 10/17/2022 11:4 5 AM EDT 10/17/2022 12:08 PM EDT Narrative Resulting Agency Comment Spec In Lab Adrianne Ramon MD CHEMISTRY ORDERA BLES Performing Organization Address City/[facility] Co de Phone Number [facility] [place] [address] * Phosphorus (10/17/2022 11:45 AM EDT) Phosphorus 3.2 2.5 - 4.5 mg/dL [facility] Blood 10/17/2022 11:4 5 AM EDT 10/17/2022 12:08 PM EDT Narrative Resulting Agency Comment Spec In Lab Adrianne Ramon MD CHEMISTRY ORDERA BLES Performing Organization Address City/[facility]/ZIP Co de Phone Number [facility] [place] [address] * Magnesium (10/17/2022 11:45 AM EDT) Magnesium 0.78 0.69 - 1.07 mmol/L [facility] Blood 10/17/2022 11:4 5 AM EDT 10/17/2022 12:08 PM EDT Narrative Resulting Agency Comment Spec In Lab Adrianne Ramon MD CHEMISTRY ORDERA BLES [facility] [place] [address] * (ABNORMAL) Lactate Dehydrogenase (10/17/2022 11:45 AM EDT) Lactate Dehydrogenase 251(H) 110 - 220 unit/L [facility] Blood 10/17/2022 11:4 5 AM EDT 10/17/2022 12:08 PM EDT Narrative Resulting Agency Comment Spec In Lab Adrianne Ramon MD CHEMISTRY ORDERA BLES [facility] [place] [address] * Comprehensive metabolic panel (non-fasting) (10/17/2022 11:45 AM EDT) Glucose 110 65 - 199 mg/dL [facility] Comment:Diabetes: >=200 mg/d L plus symptoms Blood Urea Nitrogen 17 10 - 20 mg/dL [facility] Creatinine 1.07 0.80 - 1.50 mg/dL [facility] Sodium 139 135 - 145 mmol/L [facility] Potassium 3.6 3.5 - 5.0 mmol/L [facility] Comment: Please note: ??Patients with WBC >100,000 may have falsely elevated Potassium levels. ??For accurate Potassium quantification in these patients send serum separator tube (gold top) for subsequent determinations. ??Contact the Clinical Chemistry Laboratory if there are any questions. Chloride 105 98 - 107 mmol/L [facility] Carbon Dioxide 23 22 - 31 mmol/L [facility] Anion Gap 11 5 - 15 mmol/L [facility] Calcium 8.9 8.5 - 10.5 mg/dL [facility] Protein, Total 6.2 6.1 - 8.0 g/dL [facility] Albumin 3.6 3.2 - 5.2 g/dL [facility] Aspartate Aminotransferase 14 0 - 39 unit/L [facility] Alanine Aminotransferase 27 0 - 55 unit/L [facility] Alkaline Phosphatase 103 40 - 130 unit/L [facility] Bilirubin, Total 0.4 0.2 - 1.3 mg/dL [facility] Est Glomerular Filtration Rate 73 >=60 mL/min/1. 73 m?? [facility] Comment: This patient's estimated GFR [...] Lab Adrianne Ramon MD CHEMISTRY ORDERA BLES [facility] [place] Organization Address City/State/ZIP Co de Phone Number [facility] [place] [address] documented in this encounter Visit Diagnoses Diagnosis [...] Job Aid: Adult Flushing & Catheter Care (7118) job aid for additional information regarding guidelines [...] Job Aid: Adult Flushing & Catheter Care (8027) job aid for additional information regarding guidelines and administration., Routine Given 10/17/2022 12:11 PM EDT 20 mLs documented in this encounter Care Teams Turning Lathe Tender Relationship Specialty Start Date End Date Frederick Meade MD [address] [place] [address] PCP - General Family Medicine 11/29/17 documented as of this encounter
--- OUTSIDE RECORDS SUMMARY | 2023-11-16 19:02 | XMS_ITS | Encounter Summary ---
Author Organization [facility] [place] [address] Care Team Providers Care Drug Safety Specialist Name Role Phone Bobby Headley MD Primary Care Provider [phone] Encounter Details Date Type Department Care Team (Late Contact Info) Description 11/21/2017 Orders Only Radiation Oncology at [address] [phone] Lidia Reno RN Malignant neoplasm [...] AM EDT Office Visit Hematology/Oncology at [address] [phone] Adrianne Ramon MD [facility] [place]EMATOLOGY [place] [address] Yael Merlos APRN [facility] DR HEMATOLOGY [place] [address] 11/21/2023 10:00 AM EDT Infusion Hematology Oncology at [address] [phone] 11/23/2023 11:00 AM EDT Office Visit Hematology and Oncology at [address] Reynold Proctor MD [facility] [place] [address] 11/23/2023 1:00 PM EDT Appointment Hematology and Oncology at [place] [address] 11/23/2023 2:00 PM EDT Office Visit Hematology and Oncology at [place] [phone] Micha Givens Jr., MD [facility] DR HEMATOLOGY [place] [address] 11/23/2023 3:30 PM EDT Hospital Encounter MRI at [place] [phone] Micha Givens Jr., MD [facility] DR HEMATOLOGY [place] [address] documented as of this encounter Visit Diagnoses Diagnosis Malignant neoplasm of prostate documented in this encounter Care Teams Drug Safety Specialist Relationship Specialty Start Date End Date Bobby Headley MD [address] [place] [address] PCP - General 01/29/14 11/28/17 documented as of this encounter
--- OUTSIDE RECORDS SUMMARY | 2023-11-16 19:02 | XMS_ITS | Encounter Summary ---
Author Organization [facility] [place] [address] Care Team Providers Care Cargo And Ramp Services Manager Name Role Phone Frederick Meade MD Primary Care Provider [phone] Reason for Visit * Reason Comments Chemotherapy Teaching Encounter Details Date Type Department Care Team (Late st Contact Info) Description 10/18/2022 8:00 AM EDT Office Visit Hematology/Oncology at [address] [phone] Adrianne Ramon MD [facility] DR [place] [address] Yael Merlos, MAINTENANCE PAINTER [facility] DR [place] [address] Diffuse large B-cell lymphoma of lymph nodes [...] this encounter Progress Notes * Yael Merlos, MAINTENANCE PAINTER - 10/18/2022 8:00 AM EDT PATIENT ID: [...] of infection, cataracts and osteoporosis. Medications: please clam picker the following prescriptions before you start [...] further questions or concerns. Yael Merlos, MSN, MAINTENANCE PAINTER Nurse Practitioner Section of Hematology [facility] Cc: Frederick Meade MD documented in this encounter Plan of Treatment Upcoming Encounters Date Type Department Care Team (Late st Contact Info) Description 11/21/2023 9:30 AM EDT Office Visit Hematology/Oncology at [address] [phone] Adrianne Ramon MD [facility] DR [place] [address] Yael Merlos APRN [facility] DR [place] [address] 11/21/2023 10:00 AM EDT Infusion Hematology Oncology at [address] [phone] 11/23/2023 11:00 AM EDT Office Visit Hematology [place] [address] Reynold Proctor MD [facility] [place] [address] 11/23/2023 1:00 PM EDT Appointment Hematology [place] [address] 11/23/2023 2:00 PM EDT Office Visit Hematology [place] [phone] Micha Givens Jr., MD [facility] DR [place] [address] 11/23/2023 3:30 PM EDT Hospital [place] [address] Micha Givens Jr., MD [facility] DR [place] [address] documented as of this encounter Visit Diagnoses Diagnosis 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
--- OUTSIDE RECORDS SUMMARY | 2023-11-16 19:03 | XMS_ITS | Encounter Summary ---
[place] [address] Care Team Providers Care Dinkey Operator Name Role Phone Bobby Headley MD Primary Care Provider [phone] Encounter Details Date Type Department Care Team (Late st Contact Info) Description 12/31/2014 8:00 AM EST Office Visit Radiation Oncology at [address] [phone] Nitin Stauffer MD [address] [place] [address] DR RADIATION ONCOLOGY [place], [place] [id number] Cancer of prostate with intermediate recurrence risk [...] Uncontrollable bleeding A Radiation Oncology doctor is road contractor after our normal hours and on weekends. To call for urgent medical issues from radiation treatments that can not wait until normal business hours, please call and have the steaming machine operator page the Radiation Oncologist road contractor. Nitin Ramirez MD documented in this encounter Progress Notes * Nitin Stauffer MD - 12/31/2014 8:07 AM EST [facility] [...] AM EDT Office Visit Hematology/Oncology at [address] [phone] Adrianne Ramon MD [facility] DR HEMATOLOGY [place] [address] Yael Merlos APRN [facility] DR HEMATOLOGY [place] [address] 11/21/2023 10:00 AM EDT Infusion Hematology Oncology at [address] [phone] 11/23/2023 11:00 AM EDT Office Visit Hematology [place] [address] Reynold Proctor MD [facility] [place] [address] 11/23/2023 1:00 PM EDT Appointment Hematology and Oncology at [place] [address] 11/23/2023 2:00 PM EDT Office Visit [place]ematology [place] [address] Micha Givens Jr., MD [facility] [place] [address] 11/23/2023 3:30 PM EDT Hospital Encounter MRI at [place] [phone] Micha Givens Jr., MD [facility] [place] [address] documented as of this encounter Visit Diagnoses Diagnosis Cancer of prostate with intermediate recurrence risk (stage T2b-c or [place] 7 or PSA 10-20) Malignant neoplasm of prostate documented in this encounter Care Teams Dinkey Operator Relationship Specialty Start Date End Date Bobby Headley MD [address] [place] [address] PCP - General 01/29/14 11/28/17 documented as of this encounter
--- OUTSIDE RECORDS SUMMARY | 2023-11-16 19:03 | XMS_ITS | Encounter Summary ---
[place] [address] Care Team Providers Care Clerk Checker Name Role Phone Bobby Headley MD Primary Care Provider [phone] Encounter Details Date Type Department Care Team (Late st Contact Info) Description 01/07/2015 8:00 AM EST Office Visit Radiation Oncology at [address] [phone] Nitin Stauffer MD [address] [place] [address] DR RADIATION ONCOLOGY [place], [place] [id number] Malignant neoplasm of prostate Social History Tobacco [...] Uncontrollable bleeding A Radiation Oncology doctor is product safety consultant after our normal hours and on weekends. To call for urgent medical issues from radiation treatments that can not wait until normal business hours, please call and have the dust mill operator page the Radiation Oncologist product safety consultant. Nitin Ramirez MD documented in this [...] AM EDT Office Visit Hematology/Oncology at [address] [phone] Adrianne Ramon MD [facility] DR HEMATOLOGY [place] [address] Yael Merlos APRN [facility] HEMATOLOGY [place] [address] 11/21/2023 10:00 AM EDT Infusion Hematology Oncology at [address] [address] 11/23/2023 11:00 AM EDT Office Visit Hematology [place] [address] Reynold Proctor MD [facility] [place] [address] 11/23/2023 1:00 PM EDT Appointment Hematology and Oncology at [place] [phone] 11/23/2023 2:00 PM EDT Office Visit Hematology and Oncology at [place] [phone] Micha Givens Jr., MD [facility] [place] [address] 11/23/2023 3:30 PM EDT Hospital Encounter MRI at [place] [phone] Micha Givesn Jr., MD [facility] DR HEMATOLOGY [place] [address] documented as of this encounter Visit Diagnoses Diagnosis Malignant neoplasm of prostate documented in this encounter Care Teams Clerk Checker Relationship Specialty Start Date End Date Bobby Headley MD [address] [place] [address] PCP - General 01/29/14 11/28/17 documented as of this encounter
--- OUTSIDE RECORDS SUMMARY | 2023-11-16 19:03 | XMS_ITS | Encounter Summary ---
[place] [address] Care Team Providers Care Lead Technical Writer Name Role Phone Bobby Headley MD Primary Care Provider [phone] Encounter Details Date Type Department Care Team (Late Contact Info) Description 09/30/2014 Orders Only Radiation Oncology at [address] [phone] Nitin Stauffer MD [address] [place] [address] DR RADIATION ONCOLOGY [place], [place] [id number] Social History Tobacco Use Types Packs/Day Years [...] AM EDT Office Visit Hematology/Oncology at [address] [phone] Adrianne Ramon MD [facility] [place] [address] Yael Merlos, COMPOSITE ASSEMBLER [facility] [place] [address] 11/21/2023 10:00 AM EDT Infusion Hematology Oncology at [address] [phone] 11/23/2023 11:00 AM EDT Office Visit Hematology and Oncology at [place] [phone] Reynold Proctor MD [facility] [place] [address] 11/23/2023 1:00 PM EDT Appointment Hematology and Oncology at [address] 11/23/2023 2:00 PM EDT Office Visit Hematology and Oncology at [place] [phone] Micha Givens Jr., MD [facility] [place] [address] 11/23/2023 3:30 PM EDT [place] [address] Micha Givens Jr., MD [facility] DR [place] [address] documented as of this encounter Visit Diagnoses Not on filedocumented in this encounter Care Teams Lead Technical Writer Relationship Specialty Start Date End Date Bobby Headley MD [address] [place] [address] PCP - General 01/29/14 11/28/17 documented as of this encounter
--- OUTSIDE RECORDS SUMMARY | 2023-11-16 19:03 | XMS_ITS | Encounter Summary ---
[place] [address] Care Team Providers Care Java Core Developer Name Role Phone Bobby Headley MD Primary Care Provider [phone] Encounter Details Date Type Department Care Team (Late st Contact Info) Description 12/17/2014 8:15 AM EDT Office Visit Radiation Oncology at [address] [phone] Nitin Stauffer MD [address] [place] [address] DR RADIATION ONCOLOGY [place], [place] [id number] Cancer of prostate with intermediate recurrence risk [...] Uncontrollable bleeding A Radiation Oncology doctor is social economist after our normal hours and on weekends. To call for urgent medical issues from radiation treatments that can not wait until normal business hours, please call and have the dye range operator cloth page the Radiation Oncologist social economist. Nitin Ramirez MD documented in this encounter Progress Notes * Nitin Stauffer MD - 12/17/2014 8:10 AM EDT [facility] On Treatment Visit Patient ID: Cheo [...] AM EDT Office Visit Hematology/Oncology at [address] [phone] Adrianne Ramon MD [facility] DR HEMATOLOGY [place] [address] Yael Merlos APRN [facility] HEMATOLOGY [place] [address] 11/21/2023 10:00 AM EDT Infusion Hematology Oncology at [address] [phone] 11/23/2023 11:00 AM EDT Office Visit Hematology and Oncology at [place] [phone] Reynold Proctor MD [facility] [place] [address] 11/23/2023 1:00 PM EDT Appointment Hematology and Oncology at [place] [address] 11/23/2023 2:00 PM EDT Office Visit Hematology [place] [address] Micha Givens Jr., MD [facility] DR [place] [address] 11/23/2023 3:30 PM EDT Hospital Encounter MRI at [place] [address] Micha Givens Jr., MD [facility] DR [place] [address] documented as of this encounter Visit Diagnoses Diagnosis Cancer of prostate with intermediate recurrence risk (stage T2b-c or Cierra 7 or PSA 10-20) Malignant neoplasm of prostate documented in this encounter Care Teams Java Core Developer Relationship Specialty Start Date End Date Bobby Headley MD [address] [place] [address] PCP - General 01/29/14 11/28/17 documented as of this encounter
--- OUTSIDE RECORDS SUMMARY | 2023-11-16 19:03 | XMS_ITS | Encounter Summary ---
Author Organization [facility] [place] [address] Care Team Providers Care Second Time Worker Name Role Phone Bobby Headley MD Primary Care Provider [phone] Encounter Details Date Type Department Care Team (Latest Contact Info) Description 01/07/2015 Unscheduled Encounter Hematology/Oncology at [address] [phone] [facility] [place] [address] Dietary counseling and surveillance; Dietary counseling Social [...] Narvaez RD - 01/07/2015 8:45 AM EST [facility] Initial Dietitian Assessment Seen By: Gay Narvaez MS, RD, HISTOPATHOLOGY TECHNICIAN, LD Referred by: Dr. Stauffer Reason for [...] AM EDT Office Visit Hematology/Oncology at [address] [phone] Adrianne Ramon MD [facility] [place] [address] Yael Merlos APRN [facility] [place] [address] 11/21/2023 10:00 AM EDT Infusion Hematology Oncology at [address] [phone] 11/23/2023 11:00 AM EDT Office Visit Hematology and Oncology at [place] [phone] Reynold Proctor MD [facility] [place] [address] 11/23/2023 1:00 PM EDT Appointment [place]ology [place] [phone] 11/23/2023 2:00 PM EDT Office Visit Hematology and Oncology at [place] [phone] Micha Givens Jr., MD [facility] [place] [address] 11/23/2023 3:30 PM EDT Hospital [place] [address] Micha Givens Jr., MD [facility] [place] [address] documented as of this encounter Visit Diagnoses Diagnosis Dietary counseling and surveillance Dietary surveillance and counseling Dietary counseling Dietary surveillance and counseling documented in this encounter Care Teams Second Time Worker Relationship Specialty Start Date End Date Bobby Headley MD [address] [place] [address] PCP - General 01/29/14 11/28/17 documented as of this encounter
--- OUTSIDE RECORDS SUMMARY | 2023-11-16 19:03 | XMS_ITS | Encounter Summary ---
[place] [address] Care Team Providers Care Gameroom Technician Name Role Phone Bobby Headley MD Primary Care Provider [phone] Encounter Details Date Type Department Care Team (Late st Contact Info) Description 09/29/2014 12:00 PM EDT Office Visit Radiation Oncology at [address] [phone] Nitin Stauffer MD [address] [place] [address] DR RADIATION ONCOLOGY [place], [place] [phone] Cancer of prostate with intermediate recurrence risk [...] slowed by medications such as Viagra. Another skilled nursing but potentially serious side effect is the [...] prostate MRI which we do at [facility], that allows us to better see your [...] [facility] here [facility] [...] do not hesitate to call me at [phone] with any other questions or concerns you have. Although our normal business hours are M-F 8AM-5PM, I am on- site here in [facility] Wednesdays through Fridays. On Mondays and Tuesdays, your nurse Christine Fernando will be here and can answer any questionsyou might have, or help you get in touch with me. A Radiation Oncology doctor is also territory sales professional after our normal hours and on weekends for urgent questions or concerns related to radiation treatments that can not wait until normal business hours. To reach the on-call doctor after-hours, just call and have the ditto machine operator page the Radiation Oncologist territory sales professional. And, as always, if you experience any [...] injury 7. Uncontrollable bleeding Nitin Ramirez MD Net Software Architectdirector of alumni relations Radiation Oncology [facility] documented in this encounter Progress Notes * Nitin Stauffer MD - 09/29/2014 12:00 PM EDT Radiation Oncology New Patient Consultation [facility] Reason for Consultation: intermediate risk prostate [...] Pathology had been reviewed here at [facility]. 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 Estimated travel time by the patient to [facility] is 10 minutes, one-way. KPS: 100 [...] 64-year-old man with intermediate risk prostate cancer (Dunreith 4 +3, PSA 5.4, clinical T1c). Plan: [...] either Dr. Nunezor Dr. Stubbs at [facility]. However, he was quite clear that the potential side effects of urinary incontinence or erectile dysfunction are completely unacceptable to him. Given the primary Dunreith 4 disease, I discussed the utility of [...] yes ADVANCED DIRECTIVE: yes, on file at [facility] ([facility]) PAIN ASSESSMENT: [0] out of 10 [...] AM EDT Office Visit Hematology/Oncology at [address] [phone] Adrianne Ramon MD [facility] DR HEMATOLOGY [place] [address] Yael Merlos APRN [facility] DR HEMATOLOGY [place] [address] 11/21/2023 10:00 AM EDT Infusion Hematology Oncology at [address] [phone] 11/23/2023 11:00 AM EDT Office Visit Hematology [place] [phone] Reynold Proctor MD [facility] [place] [address] 11/23/2023 1:00 PM EDT Appointment Hematology [place] [phone] 11/23/2023 2:00 PM EDT Office Visit Hematology [place] [address] Micha Givens Jr., MD [facility] DR HEMATOLOGY [place] [address] 11/23/2023 3:30 PM EDT Hospital [place] [address] Micha Givens Jr., MD [facility] DR HEMATOLOGY [place] [address] documented as of this encounter Procedures Procedure Name Priority Date/Time Associated Diagnosis Comments CHEMOTHERAPY SCAN 09/29/2014 12:00 AM EDT documented in this encounter Results * SCAN DOC: CHEMOTHERAPY (09/29/2014 12:00 AM EDT) Scanning Provider MEDIA MGR SCAN EXT O RDR/RSLT documented in this encounter Visit Diagnoses Diagnosis Cancer of prostate with intermediate recurrence risk (stage T2b-c or [place] 7 or PSA 10-20) Malignant neoplasm of prostate documented in this encounter Care Teams Gameroom Technician Relationship Specialty Start Date End Date Bobby Headley MD [address] [place] [address] PCP - General 01/29/14 11/28/17 documented as of this encounter
--- OUTSIDE RECORDS SUMMARY | 2023-11-16 19:03 | XMS_ITS | Encounter Summary ---
Author Organization [facility] [place] [address] Care Team Providers Care Logging Truck Driver Name Role Phone Bobby Headley MD Primary Care Provider [phone] Encounter Details Date Type Department Care Team (Late st Contact Info) Description 01/12/2015 8:15 AM EST Office Visit Radiation Oncology at [address] [phone] Nitin Stauffer MD [address] [place] [address] DR RADIATION ONCOLOGY [place], [place] [phone] Cancer of prostate with intermediate recurrence risk [...] Uncontrollable bleeding A Radiation Oncology doctor is vault person after our normal hours and on weekends. To call for urgent medical issues from radiation treatments that can not wait until normal business hours, please call and have the mangle operator garments page the Radiation Oncologist vault person. Nitin Ramirez MD documented in this encounter [...] AM EDT Office Visit Hematology/Oncology at [address] [phone] Adrianne Ramon MD [facility] DR [place] [address] Yael Merlos APRN [facility] DR [place] [address] 11/21/2023 10:00 AM EDT Infusion Hematology Oncology at [address] [address] 11/23/2023 11:00 AM EDT Office Visit Hematology [place] [address] Reynold Proctor MD [facility] [place] [address] 11/23/2023 1:00 PM EDT Appointment Hematology [place] [address] 11/23/2023 2:00 PM EDT Office Visit Hematology [place] [address] Micha Givens Jr., MD [facility] [place] [address] 11/23/2023 3:30 PM EDT Hospital [place] [phone] Micha Givens Jr., MD [facility] [place] [address] documented as of this encounter Visit Diagnoses Diagnosis Cancer of prostate with intermediate recurrence risk (stage T2b-c or Cierra 7 or PSA 10-20) Malignant neoplasm of prostate documented in this encounter Care Teams Logging Truck Driver Relationship Specialty Start Date End Date Bobby Headley MD [address] [place] [address] PCP - General 01/29/14 11/28/17 documented as of this encounter
--- OUTSIDE RECORDS SUMMARY | 2023-11-16 19:03 | XMS_ITS | Encounter Summary ---
Author Organization [facility] [place] [address] Care Team Providers Care Bacteriologist Food Name Role Phone Bobby Headley MD Primary Care Provider [phone] Encounter Details Date Type Department Care Team (Late Contact Info) Description 12/30/2013 [place] [address] Micha Nunez MD [facility] [place] [address] Social History Tobacco Use Types Packs/Day Years [...] AM EDT Office Visit Hematology/Oncology at [address] [phone] Adrianne Ramon MD [facility] DR HEMATOLOGY [place] [address] Yael Merlos APRN [facility] DR HEMATOLOGY [place] [address] 11/21/2023 10:00 AM EDT Infusion Hematology Oncology at [address] [phone] 11/23/2023 11:00 AM EDT Office Visit Hematology and Oncology at [place] [phone] Reynold Proctor MD [facility] [place] [place] [address] 11/23/2023 1:00 PM EDT Appointment Hematology [place] [address] 11/23/2023 2:00 PM EDT Office Visit Hematology and Oncology at [place] [phone] Micha Givens Jr., MD [facility] DR HEMATOLOGY [place] [address] 11/23/2023 3:30 PM EDT Hospital [place] [address] Micha Givens Jr., MD [facility] DR HEMATOLOGY [place] [address] documented as of this encounter Procedures Procedure [...] on filedocumented in this encounter Care Teams Bacteriologist Food Relationship Specialty Start Date End Date Bobby Headley MD [address] [place] [address] PCP - General 01/29/14 11/28/17 documented as of this encounter
--- OUTSIDE RECORDS SUMMARY | 2023-11-16 19:03 | XMS_ITS | Encounter Summary ---
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 The patient has been for [...] notable for a small left testicle ~ [id number]. There is a tiny firm area palpable [...] AM EDT Office Visit Hematology/Oncology at [address] [phone] Adrianne Ramon MD [facility] DR HEMATOLOGY AND [place] [address] Yael Merlos APRN [facility] DR HEMATOLOGY [place] [address] 11/21/2023 10:00 AM EDT Infusion Hematology Oncology at [address] [address] 11/23/2023 11:00 AM EDT Office Visit Hematology [place] [address] Reynold Proctor MD [facility] [place] [place] [address] 11/23/2023 1:00 PM EDT Appointment Hematology [place] [address] 11/23/2023 2:00 PM EDT Office Visit Hematology and Oncology at [place] [phone] Landry Givens Jr., MD [facility] DR HEMATOLOGY [place] [address] 11/23/2023 3:30 PM EDT Hospital Encounter MRI at [place] [phone] Landry Givens Jr., MD [facility] DR HEMATOLOGY [place] [address] documented as of this encounter Procedures Procedure [...] ? pm) Patient Info ID #: ? [id number] ?: ??[birth year] (63 yrs) Name: ? CHEO MORFIN ? Visit Date: 03/04/2014 04:39 pm Performed By Performed By: ?Hannah Wahl RDMS Attending: ? Alexandre OCASIO, Jaime Dumas Referred By: ? LANDRY NUNEZ MD Service(s) Provided ??[facility] - Ultrasound Scrotum and Contents with ?[id number], [id number] ??Vascular - [id number], [id number] Indications ??Evaluate Right testicle hx of testis [...] 03/04/2014 05:00 pm) Patient Info ID #: [id number] : [birth year] (63 yrs) Name: CHEO MORFIN Visit Date: 03/04/2014 04:39 pm Performed By Performed By: Hannah Wahl RDMS Attending: Jaime Schroeder MD Referred By: LANDRY NUNEZ MD Service(s) Provided [facility] - Ultrasound Scrotum and Contents with [id number], [id number] Vascular - [id number], [id number] Indications Evaluate Right testicle hx of testis [...] MD HEMATOLOGY ORDERABLE S Performing Organization Address [facility] Co de Phone Number [facility] * AFP tumor marker (03/04/2014 4:03 PM EST) Alpha Fetoprotein 2.3 <=8.3 ng/mL [facility] Blood specimen (specimen) 03/04/2014 4:03 PM EST 03/04/2014 4:07 PM EST Narrative Resulting Agency Comment Spec In Lab Landry Nunez MD CHEMISTRY ORDERABLES Performing Organization Address [facility] Co de Phone Number [facility] * Beta HCG, quantitative (03/04/2014 4:03 PM EST) Beta Human Chorionic Gonadotropin, Quantitative <1 0 - 2 mlU/ML [facility] Comment: REFERENCE RANGES NON- FEMALE: ??Less [...] - 56,451 ?17 weeks ? 8,175 - 54,868 ?18 weeks ? 8,099 - 20,176 Blood specimen (specimen) 03/04/2014 4:03 PM EST 03/04/2014 4:07 PM EST Narrative Resulting Agency Comment Spec In Lab Landry Nunez MD CHEMISTRY ORDERABLES [facility] documented in this encounter Visit Diagnoses Diagnosis Testis mass Other specified disorder of male genital organs Testis cancer, right Testis mass Other specified disorder of male genital organs documented in this encounter Care Teams Apprentice Painter Brush Relationship Specialty Start Date End Date Bobby Headley MD [address] [place] [address] PCP - General 01/29/14 11/28/17 documented as of this encounter
--- OUTSIDE RECORDS SUMMARY | 2023-11-16 19:03 | XMS_ITS | Encounter Summary ---
Author Organization [facility] [place] [address] Care Team Providers Care Apparel Patternmaker Name Role Phone Bobby Headley MD Primary Care Provider Encounter Details Date Type Department Care Team (Late st Contact Info) Description 12/01/2015 10:15 AM EDT Office Visit Hematology/Oncology at [address] [phone] Annika Quezada APRN [facility] [place] [address] Prostate cancer Social History Tobacco Use Types [...] prostate cancer with pretreatment PSA of 5.4 [place] 4+3=7. He was treated with external beam [...] elevated at 5.4 with only 9% free. [place] with Dr. Vergara July 2014 who offered biopsy which was performed 09/01/14, demonstrating Gleason4 + 3 disease in a single core at the right apex. Forty-five percent of that core did appear to be involved. Perineural invasion was not seen. Pathology had been reviewed here at [facility]. The patient is here today [...] the prostate Field orientation: Dynamic arc VMAT Evaporator Helper Target Coverage (70Gy isodose line indicated): Hormone [...] Biopsy 09/01/2014 Volume in cc 15 cc [place] grade/score a+b=c 4+3=7-- intermediate risk prostate cancer [...] of education: N/A Occupational History ??? 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 Smoking [...] to their sporting events. He went to [place] in September to attend a [employer] tournament and had a great time. He [...] AM EDT Office Visit Hematology/Oncology at [address] [address] Adrianne Ramon MD [facility] DR [place] [address] Yael Merlos APRN [facility] [place] [address] 11/21/2023 10:00 AM EDT Infusion Hematology Oncology at [address] [address] 11/23/2023 11:00 AM EDT Office Visit Hematology [place] [address] Reynold Proctor MD [facility] [place] [address] 11/23/2023 1:00 PM EDT Appointment Hematology [place] [address] 11/23/2023 2:00 PM EDT Office Visit Hematology [place] [address] Micha Givens Jr., MD [facility] DR [place] [address] 11/23/2023 3:30 PM EDT Hospital [place] [address] Micha Givens Jr., MD [facility] DR [place] [address] documented as of this encounter Visit Diagnoses Diagnosis Prostate cancer Malignant neoplasm of prostate documented in this encounter Care Teams Apparel Patternmaker Relationship Specialty Start Date End Date Bobby Headley MD [address] [address] PCP - General 01/29/14 11/28/17 documented as of this encounter
--- OUTSIDE RECORDS SUMMARY | 2023-11-16 19:03 | XMS_ITS | Encounter Summary ---
[place] [address] Care Team Providers Care Shagger Name Role Phone Bobby Headley MD Primary Care Provider [phone] Encounter Details Date Type Department Care Team (Late st Contact Info) Description 12/14/2016 3:45 PM EDT Office Visit Hematology/Oncology at [address] [phone] Nancy Stratton, SUPER[employer]OR [employer] [address] [facility] [place] [address] Malignant neoplasm of prostate Social History Tobacco [...] this encounter Progress Notes * Nancy Stratton, SUPERVISOR [employer] AUXILIARIES - 12/14/2016 3:45 PM EDT Images from the original note were not included. Patient ID: Cheo Freire is a 66 y.o. male with intermediate risk prostate cancer with pretreatment PSA of 5.4 [place] 4+3=7. He was treated with external beam [...] had been reviewed here at [facility]. 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 [...] to their sporting events. He went to [place] last September to attend a [employer] andhad a great time. He feels he [...] concerns in the interim. Nancy Stratton, MSN, VEHICLE AND EQUIPMENT CLEANER, AOCN Hematology/Oncology Nurse Practitioner [place], [place] [phone] . documented in this encounter Plan of Treatment Upcoming Encounters Date Type Department Care Team (Late st Contact Info) Description 11/21/2023 9:30 AM EDT Office Visit Hematology/Oncology at [address] [phone] Adrianne Ramon MD [facility] HEMATOLOGY [place] [address] Yael Merlos APRN [facility] HEMATOLOGY [place] [address] 11/21/2023 10:00 AM EDT Infusion Hematology Oncology at [address] [phone] 11/23/2023 11:00 AM EDT Office Visit [place]ology [place] [address] Reynold Proctor MD [facility] [place] [address] 11/23/2023 1:00 PM EDT Appointment [place]ology [place] [address] 11/23/2023 2:00 PM EDT Office Visit [place]ology [place] [phone] Micha Givens Jr., MD [facility] DR HEMATOLOGY [place] [address] 11/23/2023 3:30 PM EDT [place] [phone] Micha Givens Jr., MD [facility] DR HEMATOLOGY [place] [address] documented as of this encounter Visit Diagnoses Diagnosis Malignant neoplasm of prostate documented in this encounter Care Teams Shagger Relationship Specialty Start Date End Date Bobby Headley MD [address] [place] [address] PCP - General 01/29/14 11/28/17 documented as of this encounter
--- OUTSIDE RECORDS SUMMARY | 2023-11-16 19:03 | XMS_ITS | Encounter Summary ---
[place] [address] Care Team Providers Care Colon And Rectal Surgeon Name Role Phone Bobby Headley MD Primary Care Provider [phone] Encounter Details Date Type Department Care Team (Late st Contact Info) Description 10/21/2014 11:00 AM EDT Ancillary Appointment Radiation Oncology at [address] [phone] Nitin Stauffer MD [address] [place] [address] DR RADIATION ONCOLOGY [place], [place] [id number] Social History Tobacco Use Types Packs/Day Years [...] do to help manage the side effects. 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 The food court team member and nurse will inform you of any [...] - Sunday 8 AM to 5 PM [facility] phone# [phone] [facility] If you have questions about your [...] in injury A Radiation Oncology doctor is electronic security technician after our normal hours and on weekends. To call for urgent medical issues from radiation treatments that can not wait until normal business hours, please call for either location and have the multiple knife edge trimmer operator page the Radiation Oncologist in call. documented in this encounter Progress Notes * Nitin Stauffer MD - 10/21/2014 11:16 AM EDT Simulation Note for External Beam Radiation Treatment Planning [facility] Bolivar Freire is a 64 y.o. [...] of any short term side effects or prison complications of therapy. I anticipate his prescription [...] AM EDT Office Visit Hematology/Oncology at [address] [phone] Adrianne Ramon MD [facility] [place] [address] Yael Merlos APRN [facility] [place] [address] 11/21/2023 10:00 AM EDT Infusion Hematology Oncology at [address] [phone] 11/23/2023 11:00 AM EDT Office Visit Hematology [place] [address] Reynold Proctor MD [facility] [place] [address] 11/23/2023 1:00 PM EDT Appointment Hematology [place] [address] 11/23/2023 2:00 PM EDT Office Visit Hematology and Oncology at [place] [phone] Micha Givens Jr., MD [facility] DR [place] [address] 11/23/2023 3:30 PM EDT Hospital Encounter MRI at [place] [phone] Micha Givens Jr., MD [facility] DR [place] [address] documented as of this encounter Visit Diagnoses Not on filedocumented in this encounter Care Teams Colon And Rectal Surgeon Relationship Specialty Start Date End Date Bobby Headley MD [address] [place] [address] PCP - General 01/29/14 11/28/17 documented as of this encounter
--- OUTSIDE RECORDS SUMMARY | 2023-11-16 19:03 | XMS_ITS | Encounter Summary ---
Author Organization Formerly [facility] [place] [address] Care Team Providers Care Commercial Credit Lead Name Role Phone Bobby Headley MD Primary Care Provider [phone] Encounter Details Date Type Department Care Team ([facility] Contact Info) Description 03/04/2014 4:07 PM EST - 03/04/2014 11:59 PM EST Hospital [place] [address] Testis mass Social History Tobacco Use Types [...] AM EDT Office Visit Hematology/Oncology at [address] [phone] Adrianne Ramon MD [facility] DR [place] [address] Yael Merlos, SHEET FINISHER [facility] [place] [address] 11/21/2023 10:00 AM EDT Infusion Hematology Oncology at [address] [address] 11/23/2023 11:00 AM EDT Office Visit Hematology [place] [phone] Reynold Proctor MD [facility] [place] [address] 11/23/2023 1:00 PM EDT Appointment Hematology [place] [address] 11/23/2023 2:00 PM EDT Office Visit [place]ematology [place] [address] Landry Givens Jr., MD [facility] DR HEMATOLOGY [place] [address] 11/23/2023 3:30 PM EDT Hospital [place] [address] Landry Givens Jr., MD [facility] DR [place] [address] documented as of this encounter Procedures Procedure Name Priority Date/Time Associated Diagnosis Comments US SCROTUM Routine 03/04/2014 4:46 PM EST Testis mass documented in this encounter Results * US scrotum (03/04/2014 4:46 PM EST) Anatomical Region Laterality Modality Pelvis Ultrasound 03/04/2014 4:46 PM EST Narrative 03/04/2014 5:00 PM EST Scrotal ?(Signed Final 03/04/2014 05:00 ? pm) Patient Info ID #: ? [id number] ?: ??[birth year] (63 yrs) Name: ? CHEO MORFIN ? Visit Date: 03/04/2014 04:39 pm Performed By Performed By: ?Hannah Wahl RDMS Attending: ? Alexandre OCASIO, Jaime Dumas Referred By: ? LANDRY NUNEZ MD Service(s) Provided ??[facility] - Ultrasound Scrotum and Contents with ?[id number], [id number] ??Vascular - [id number], [id number] Indications ??Evaluate Right testicle hx of testis [...] 03/04/2014 05:00 pm) Patient Info ID #: [id number] : [birth year] (63 yrs) Name: CHEO MORFIN Visit Date: 03/04/2014 04:39 pm Performed By Performed By: Hannah Wahl RDMS Attending: Jaime Schroeder MD Referred By: LANDRY NUNEZ MD Service(s) Provided [facility] - Ultrasound Scrotum and Contents with [id number], [id number] Vascular - [id number], [id number] Indications Evaluate Right testicle hx of testis [...] organs documented in this encounter Care Teams Commercial Credit Lead Relationship Specialty Start Date End Date Bobby Headley MD [address] [place] [address] PCP - General 01/29/14 11/28/17 documented as of this encounter
--- OUTSIDE RECORDS SUMMARY | 2023-11-16 19:03 | XMS_ITS | Encounter Summary ---
Author Organization [facility] [place] [address] Care Team Providers Care Business Process Consultant Name Role Phone Bobby Headley MD Primary Care Provider [phone] Encounter Details Date Type Department Care Team (Late Contact Info) Description 09/01/2014 [place] [address] Micha Nunez MD [facility] [place] [address] Social History Tobacco Use Types Packs/Day Years [...] AM EDT Office Visit Hematology/Oncology at [address] [phone] Adrianne Ramon MD [facility] DR [place] [address] Yael Merlos APRN [facility] [place] [address] 11/21/2023 10:00 AM EDT Infusion Hematology Oncology at [address] [address] 11/23/2023 11:00 AM EDT Office Visit Hematology and Oncology at [place] [phone] Reynold Proctor MD [facility] [place] [place] [address] 11/23/2023 1:00 PM EDT Appointment Hematology [place] [address] 11/23/2023 2:00 PM EDT Office Visit Hematology and Oncology at [place] [phone] Micha Givens Jr., MD [facility] DR HEMATOLOGY [place] [address] 11/23/2023 3:30 PM EDT [place] [address] Micha Givens Jr., MD [facility] DR [place] [address] documented as of this encounter Procedures Procedure [...] a Non-reportable exam Micha Nunez MD [facility]RARY ORD ERABLES documented in this encounter Visit Diagnoses Not on filedocumented in this encounter Care Teams Business Process Consultant Relationship Specialty Start Date End Date Bobby Headley MD [address] [place] [address] PCP - General 01/29/14 11/28/17 documented as of this encounter
--- OUTSIDE RECORDS SUMMARY | 2023-11-16 19:03 | XMS_ITS | Encounter Summary ---
[place] [address] Care Team Providers Care Health Researcher Name Role Phone Bobby Headley MD Primary Care Provider [phone] Encounter Details Date Type Department Care Team (Late st Contact Info) Description 12/24/2014 8:15 AM EST Office Visit Radiation Oncology at [address] [phone] Nitin Stauffer MD [address] [place] [address] DR RADIATION ONCOLOGY [place], [place] [phone] Cancer of prostate with intermediate recurrence risk [...] Uncontrollable bleeding A Radiation Oncology doctor is paper cone machine operator after our normal hours and on weekends. To call for urgent medical issues from radiation treatments that can not wait until normal business hours, please call and have the stretching machine operator page the Radiation Oncologist paper cone machine operator. Nitin Ramirez MD documented in this encounter Progress Notes * Nitin Stauffer MD - 12/24/2014 8:16 AM EST [facility] On Treatment Visit Patient ID: [...] AM EDT Office Visit Hematology/Oncology at [address] [phone] Adrianne Ramon MD [facility] HEMATOLOGY [place] [address] Yael Merlos APRN [facility] HEMATOLOGY [place] [address] 11/21/2023 10:00 AM EDT Infusion Hematology Oncology at [address] [phone] 11/23/2023 11:00 AM EDT Office Visit Hematology [place] [address] Reynold Proctor MD [facility] [place] [address] 11/23/2023 1:00 PM EDT Appointment Hematology [place] [address] 11/23/2023 2:00 PM EDT Office Visit Hematology and Oncology at [place] [phone] Micha Givens Jr., MD [facility] DR HEMATOLOGY [place] [address] 11/23/2023 3:30 PM EDT Hospital Encounter MRI at [place] [phone] Micha Givens Jr., MD [facility] DR HEMATOLOGY [place] [address] documented as of this encounter Visit Diagnoses Diagnosis Cancer of prostate with intermediate recurrence risk (stage T2b-c or [place]ierra 7 or PSA 10-20) Malignant neoplasm of prostate documented in this encounter Care Teams Health Researcher Relationship Specialty Start Date End Date Bobby Headley MD [address] [address] PCP - General 01/29/14 11/28/17 documented as of this encounter
--- OUTSIDE RECORDS SUMMARY | 2023-11-16 19:03 | XMS_ITS | Encounter Summary ---
[place] [address] Care Team Providers Care Carpentry Teacher Name Role Phone Bobby Headley MD Primary Care Provider [phone] Reason for Visit * Reason Comments On Treatment Visit Encounter Details Date Type Department Care Team (Late st Contact Info) Description 01/19/2015 8:00 AM EST Office Visit Radiation Oncology at [address] [phone] Nitin Stauffer MD [address] [place] [address] [place] [address] Cancer of prostate with intermediate [...] bleeding A Radiation Oncology doctor is director long term care after our normal hours and on weekends. To call for urgent medical issues from radiation treatments that can not wait until normal business hours, please call and have the spraying machine operator page the Radiation Oncologist director long term care. Nitin Ramirez. MD Eh documented in this encounter Progress Notes * Nitin Stauffer MD - 01/19/2015 8:11 AM EST [facility] On [...] AM EDT Office Visit Hematology/Oncology at [address] [phone] Adrianne Ramon MD [facility] HEMATOLOGY [place] [address] Yael Merlos APRN [facility] HEMATOLOGY [place] [address] 11/21/2023 10:00 AM EDT Infusion Hematology Oncology at [address] [address] 11/23/2023 11:00 AM EDT Office Visit Hematology [place] [address] Reynold Proctor MD [facility] [place] [place] [address] 11/23/2023 1:00 PM EDT Appointment Hematology [place] [address] 11/23/2023 2:00 PM EDT Office Visit Hematology [place] [phone] Micha Givens Jr., MD [facility] DR HEMATOLOGY [place] [address] 11/23/2023 3:30 PM EDT [place] [address] Micha Givens Jr., MD [facility] DR HEMATOLOGY [place] [address] documented as of this encounter Visit Diagnoses Diagnosis Cancer of prostate with intermediate recurrence risk (stage T2b-c or [place] 7 or PSA 10-20) Malignant neoplasm of prostate documented in this encounter Care Teams Carpentry Teacher Relationship Specialty Start Date End Date Bobby Headley MD [address] [place] [address] PCP - General 01/29/14 11/28/17 documented as of this encounter
--- OUTSIDE RECORDS SUMMARY | 2023-11-16 19:03 | XMS_ITS | Encounter Summary ---
[place] [address] Care Team Providers Care Metal Furniture Assembly Supervisor Name Role Phone Bobby Headley MD Primary Care Provider [phone] Encounter Details Date Type Department Care Team (Late st Contact Info) Description 10/14/2014 8:30 AM EDT Procedure visit Radiation Oncology at [address] [phone] Nitin Stauffer MD [address] [place] [address] DR RADIATION ONCOLOGY [place], [place] [phone] Cancer of prostate with intermediate recurrence risk (stage T2b-c or [place] 7 or PSA 10-20) Discharge Disposition: Home [...] to undergo MRI of the prostate at [facility]. * Christine Fernando [...] needed for mild discomfort. He has the [facility] phone number and verbalized understanding to ask for the content designer radiation oncologist if he needs to after clinic hours. Time of discharge: 10:00 vital signs stable,and gait steady and dressed himself. Dr Stauffer saw him briefly before discharge. documented in this encounter Plan of Treatment Upcoming Encounters Date Type Department Care Team (Late st Contact Info) Description 11/21/2023 9:30 AM EDT Office Visit Hematology/Oncology at [address] [phone] Adrianne Ramon MD [facility] HEMATOLOGY [place] [address] Yael Merlos APRN [facility] HEMATOLOGY [place] [address] 11/21/2023 10:00 AM EDT Infusion Hematology Oncology at [address] [address] 11/23/2023 11:00 AM EDT Office Visit Hematology [place] [address] Reynold Proctor MD [facility] [place] [address] 11/23/2023 1:00 PM EDT Appointment Hematology and Oncology at [place] [phone] 11/23/2023 2:00 PM EDT Office Visit Hematology and Oncology at [place] [phone] Micha Givens Jr., MD [facility] DR HEMATOLOGY [place] [address] 11/23/2023 3:30 PM EDT Hospital [place] [phone] Micha Givens Jr., MD [facility] DR HEMATOLOGY [place] [address] documented as of this encounter Visit Diagnoses Diagnosis Cancer of prostate with intermediate recurrence risk (stage T2b-c or Britton 7 or PSA 10-20) Malignant neoplasm of prostate documented in this encounter Care Teams Metal Furniture Assembly Supervisor Relationship Specialty Start Date End Date Bobby Headley MD [address] [place] [address] PCP - General 01/29/14 11/28/17 documented as of this encounter
--- OUTSIDE RECORDS SUMMARY | 2023-11-16 19:03 | XMS_ITS | Encounter Summary ---
[place] [address] Care Team Providers Care Clearance Coordinator Name Role Phone Bobby Headley MD Primary Care Provider [phone] Encounter Details Date Type Department Care Team (Late st Contact Info) Description 09/25/2014 External [place] [address] Provider, Scanning Social History Tobacco [...] AM EDT Office Visit Hematology/Oncology at [address] [phone] Adrianne Ramon MD [facility] DR HEMATOLOGY [place] [address] Yael Merlos APRN [facility] DR HEMATOLOGY [place] [address] 11/21/2023 10:00 AM EDT Infusion Hematology Oncology at [address] [phone] 11/23/2023 11:00 AM EDT Office Visit Hematology [place] [address] Reynold Proctor MD [facility] [place] [place] [address] 11/23/2023 1:00 PM EDT Appointment Hematology and Oncology at [place] [phone] 11/23/2023 2:00 PM EDT Office Visit Hematology and Oncology at [place] [phone] Micha Givens Jr., MD [facility] HEMATOLOGY [place] [address] 11/23/2023 3:30 PM EDT Hospital Encounter MRI at [place] [phone] Micha Givens Jr., MD [facility] DR HEMATOLOGY [place] [address] documented as of this encounter Procedures Procedure Name Priority Date/Time Associated Diagnosis Comments SURGICAL PATHOLOGY SCAN Routine 09/25/2014 documented in this encounter Results * Scan Doc: Surgical Pathology (09/25/2014) John Vergara MD MEDIA MGR SCAN EXT O RDR/RSLT documented in this encounter Visit Diagnoses Not on filedocumented in this encounter Care Teams Clearance Coordinator Relationship Specialty Start Date End Date Bobby Headley MD [address] [place] [address] PCP - General 01/29/14 11/28/17 documented as of this encounter
--- OUTSIDE RECORDS SUMMARY | 2023-11-16 19:03 | XMS_ITS | Encounter Summary ---
[place] [address] Care Team Providers Care Bindery Operator Name Role Phone Bobby Headley MD Primary Care Provider [phone] Reason for Visit * Reason Comments On Treatment Visit Encounter Details Date Type Department Care Team (Late st Contact Info) Description 12/03/2014 1:15 PM EDT Office Visit Radiation Oncology at [address] [phone] Nitin Stauffer MD [address] [place] [address] [place] [address] Cancer of prostate with intermediate [...] Uncontrollable bleeding A Radiation Oncology doctor is metal precision machine assembler after our normal hours and on weekends. To call for urgent medical issues from radiation treatments that can not wait until normal business hours, please call and have the stereo map plotter operator page the Radiation Oncologist metal precision machine assembler. Nitin Ramirez MD documented in this encounter [...] AM EDT Office Visit Hematology/Oncology at [address] [phone] Adrianne Ramon MD [facility] [place] [address] Yael Merlos APRN [facility] [place] [address] 11/21/2023 10:00 AM EDT Infusion Hematology Oncology at [address] [phone] 11/23/2023 11:00 AM EDT Office Visit Hematology [place] [address] Reynold Proctor MD [facility] [place] [address] 11/23/2023 1:00 PM EDT Appointment Hematology and Oncology at [place] [phone] 11/23/2023 2:00 PM EDT Office Visit Hematology and Oncology at [place] [phone] Micha Givens Jr., MD [facility] DR [place] [address] 11/23/2023 3:30 PM EDT Hospital Encounter MRI at [place] [phone] Micha Givens Jr., MD [facility] DR [place] [address] documented as of this encounter Visit Diagnoses Diagnosis Cancer of prostate with intermediate recurrence risk (stage T2b-c or [place] 7 or PSA 10-20) Malignant neoplasm of prostate documented in this encounter Care Teams Bindery Operator Relationship Specialty Start Date End Date Bobby Headley MD [address] [place] [address] PCP - General 01/29/14 11/28/17 documented as of this encounter
--- OUTSIDE RECORDS SUMMARY | 2023-11-16 19:03 | XMS_ITS | Encounter Summary ---
[place] [address] Care Team Providers Care Cloth Handler Name Role Phone Bobby Headley MD Primary Care Provider [phone] Reason for Visit * Reason Comments Radiation Follow-up prostate cancer Encounter Details Date Type Department Care Team (Late st Contact Info) Description 06/03/2015 3:15 PM EDT Office Visit Radiation Oncology at [address] [phone] [address] Carr [address] RADIATION ONCOLOGY [place], [place] [phone] Malignant neoplasm of prostate Social History Tobacco [...] encounter Progress Notes * Anna Carr Parish, BRICK AND TILE MAKING MACHINE OPERATOR - 06/02/2015 9:56 AM EDT Images from the original note were not included. Patient ID: Cheo Freire is a 65 y.o. male with intermediate risk prostate cancer with pretreatment PSA of 5.4 [place] 4+3=7. He was treated with external beam [...] elevated at 5.4 with only 9% free. [place] with Dr. Vergara July 2014 who offered biopsy which was performed 09/01/14, demonstrating Gleason4 + 3 disease in a single core at the right apex. Forty-five percent of that core did appear to be involved. Perineural invasion was not seen. Pathology had been reviewed here at [facility]. 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 [...] sporting events. He will be going to [place] in September to attend a [employer] tournament. He feels he is coping [...] Negative. Vitals Office Visit from 06/03/2015 in [facility] Radiation Oncology Weight - Scale [...] prostate cancer with pretreatment PSA of 5.4 [place] 4+3=7. He was treated with external beam [...] AM EDT Office Visit Hematology/Oncology at [address] [phone] Adrianne Ramon MD [facility] H[place]ATOLOGY [place] [address] Yael Merlos APRN [facility] [place] [address] 11/21/2023 10:00 AM EDT Infusion Hematology Oncology at [address] [address] 11/23/2023 11:00 AM EDT Office Visit Hematology [place] [address] Reynold Proctor MD [facility] [address] 11/23/2023 1:00 PM EDT Appointment Hematology and Oncology at [address] 11/23/2023 2:00 PM EDT Office Visit Hematology and Oncology at [place] [phone] Micha Givens Jr., MD [facility] [place] [address] 11/23/2023 3:30 PM EDT Hospital [place] [address] Micha Givens Jr., MD [facility] [place] [address] documented as of this encounter Visit Diagnoses Diagnosis Malignant neoplasm of prostate documented in this encounter Care Teams Cloth Handler Relationship Specialty Start Date End Date Bobby Headley MD [address] [place] [address] PCP - General 01/29/14 11/28/17 documented as of this encounter
--- OUTSIDE RECORDS SUMMARY | 2023-11-16 19:03 | XMS_ITS | Encounter Summary ---
[place] [address] Care Team Providers Care Counter Intelligence Name Role Phone Bobby Headley MD Primary Care Provider Encounter Details Date Type Department Care Team (Late Contact Info) Description 09/24/2014 4:13 PM EDT - 09/24/2014 11:59 PM EDT [place] [phone] Tk Vergara MD [address] [place] [address] Discharge Disposition: Home Social History Tobacco Use [...] AM EDT Office Visit Hematology/Oncology at [address] [phone] Adrianne Ramon MD [facility] H[place]ATOLOG[place] [address] Yael Merlos APRN [facility] DR HEMATOLOG[place] [address] 11/21/2023 10:00 AM EDT Infusion Hematology Oncology at [address] [address] 11/23/2023 11:00 AM EDT Office Visit Hematology and Oncology at [place] [phone] Reynold Proctor MD [facility] [place] [address] 11/23/2023 1:00 PM EDT Appointment Hematology and Oncology at [place] [phone] 11/23/2023 2:00 PM EDT Office Visit Hematology and Oncology at [place] [phone] Micha Givens Jr., MD [facility] DR [place] [address] 11/23/2023 3:30 PM EDT Hospital Encounter MRI at [place] [phone] Micha Givens Jr., MD [facility] DR [place] [address] documented as of this encounter Procedures Procedure Name Priority Date/Time Associated Diagnosis Comments SURGICAL PATHOLOGY REPORT Routine 09/24/2014 10:06 AM EDT documented in this encounter Results * Surgical Pathology Report (09/24/2014 10:06 AM EDT) Final Diagnosis ? [facility] ? Provider: ?? TK VERGARA ?? Pt. Name: ?? CHEO MORFIN ? Acc #: ?[id number] ?Pt. ? Col Date: ?? 09/24/2014 ?/Sex: ?1950,(64 years),Male ? Rec Date: ?? 09/25/2014 ?LOC: ?OPW ? SURGICAL PATHOLOGY ? DIAGNOSIS ? CONSULTATION CASE ? Outside slides labeled [id number], collection date 09/01/2014 ? A - Prostatic [...] needle biopsy, right mid apex: ? Adenocarcinoma, [place] grade 4+3, discontinuously involving ? approximately 45% [...] mid apex: ? Benign prostatic tissue. ? [facility] ? Provider: ?? TK VERGARA ?? Pt. Name: ?? CHEO MORFIN ? Acc #: ?[id number] ?Pt. ? Col Date: ?? 09/24/2014 ?/Sex: [...] description not recorded. ? Whole slide scan: ?[id number]-10 ? GROSS DESCRIPTION ? [facility] ([facility]) pathology slide(s) are ? reviewed. ??Refer to Diagnosis and Specimen Submitted for specific case ? information. ? For the full text of the [facility] report(s) please refer to Non-DH ? Documentation Pathology in the electronic health record (eDH). ? CLINICAL INFORMATION ? Specimen Submitted: ? CONSULTATION CASE ? A - 20 slides labeled [id number], collection date 09/01/2014. ? [id number] ? Report to: ? [facility] ? Surgical Pathology Department ? [facility], [facility], 2nd Floor ? [address] ? [place], [place] [address] ? 09/28/2014 3:18 PM EDT [facility] Consult Case 09/24/2014 10:0 6 AM EDT 09/24/2014 10:06 AM EDT Tk Vergara MD PATHOLOGY/CYTOLOGY O COLIN PHILLIP MAURER [facility] [place] [address] documented in this encounter Visit Diagnoses Not on filedocumented in this encounter Care Teams Counter Intelligence Relationship Specialty Start Date End Date Bobby Headley MD [address] [place] [address] PCP - General 01/29/14 11/28/17 documented as of this encounter
--- OUTSIDE RECORDS SUMMARY | 2023-11-16 19:03 | XMS_ITS | Encounter Summary ---
[place] [address] Care Team Providers Care Salvage Determiner Name Role Phone Bobby Headley MD Primary Care Provider [phone] Encounter Details Date Type Department Care Team (Late st Contact Info) Description 12/10/2014 11:45 AM EDT Office Visit Radiation Oncology at [address] [phone] Nitin Stauffer MD [address] [place] [address] DR RADIATION ONCOLOGY [place], [place] [phone] Cancer of prostate with intermediate recurrence risk [...] Uncontrollable bleeding A Radiation Oncology doctor is hematologist oncologist after our normal hours and on weekends. To call for urgent medical issues from radiation treatments that can not wait until normal business hours, please call and have the alum operator page the Radiation Oncologist hematologist oncologist. Nitin Ramirez MD documented in this encounter Progress Notes * Nitin Stauffer MD - 12/10/2014 11:08 AM EDT [facility] On Treatment Visit [...] AM EDT Office Visit Hematology/Oncology at [address] [phone] Adrianne Ramon MD [facility] [place] [address] Yael Merlos, KARLA [facility] [place] [address] 11/21/2023 10:00 AM EDT Infusion Hematology Oncology at [address] [phone] 11/23/2023 11:00 AM EDT Office Visit Hematology [place] [address] Reynold Proctor MD [facility] [place] [address] 11/23/2023 1:00 PM EDT Appointment Hematology [place] [address] 11/23/2023 2:00 PM EDT Office Visit Hematology [place] [phone] Micha Givens Jr., MD [facility] DR [place] [address] 11/23/2023 3:30 PM EDT Hospital [place] [phone] Micha Givens Jr., MD [facility] DR [place] [address] documented as of this encounter Visit Diagnoses Diagnosis Cancer of prostate with intermediate recurrence risk (stage T2b-c or [place] 7 or PSA 10-20) Malignant neoplasm of prostate documented in this encounter Care Teams Salvage Determiner Relationship Specialty Start Date End Date Bobby Headley MD [address] [place] [address] PCP - General 01/29/14 11/28/17 documented as of this encounter
--- OUTSIDE RECORDS SUMMARY | 2023-11-16 19:03 | XMS_ITS | Encounter Summary ---
[place] [address] Care Team Providers Care Plant Maintenance Supervisor Name Role Phone Bobby Headley MD Primary Care Provider [phone] Encounter Details Date Type Department Care Team (Late st Contact Info) Description 12/02/2014 Notes Only Radiation Oncology at [address] [phone] Shelley Cason MSW OFFICE OF CARE MANAGEMENT [...] make outreach to Arlyn Gong RN, Chronic Morals Squad Police Officer, [facility]. Adjustment to Illness/Mental Health Issues: [...] AM EDT Office Visit Hematology/Oncology at [address] [phone] Adrianne Ramon MD [facility] DR HEMATOLOGY [place] [address] Yael Merlos APRN [facility] DR HEMATOLOGY [place] [address] 11/21/2023 10:00 AM EDT Infusion Hematology Oncology at [address] [phone] 11/23/2023 11:00 AM EDT Office Visit Hematology [place] [address] Reynold Proctor MD [facility] [place] [address] 11/23/2023 1:00 PM EDT Appointment Hematology [place] [address] 11/23/2023 2:00 PM EDT Office Visit Hematology [place] [address] Micha Givens Jr., MD [facility] HEMATOLOGY [place] [address] 11/23/2023 3:30 PM EDT Hospital [place] [address] Micha Givens Jr., MD [facility] HEMATOLOGY [place] [address] documented as of this encounter Visit Diagnoses Not on filedocumented in this encounter Care Teams Plant Maintenance Supervisor Relationship Specialty Start Date End Date Bobby Headley MD [address] [place] [address] PCP - General 01/29/14 11/28/17 documented as of this encounter
--- OUTSIDE RECORDS SUMMARY | 2023-11-16 19:03 | XMS_ITS | Encounter Summary ---
[place] [address] Care Team Providers Care Regulatory Coordinator Name Role Phone Bobby Headley MD Primary Care Provider [phone] Reason for Visit * Reason Comments Radiation Follow-up prostate cancer Encounter Details Date Type Department Care Team (Late st Contact Info) Description 05/31/2017 11:15 AM EDT Office Visit Radiation Oncology at [address] [phone] Anna Carr [address] RADIATION ONCOLOGY [place], [place] [phone] Malignant neoplasm of prostate Social History Tobacco [...] Visit from 05/31/2017 in Radiation Oncology at [facility] Weight 91.7 kg (202 lb 3.2 [...] the prostate Field orientation: Dynamic arc VMAT Corporate Counselor Target Coverage (70Gy isodose line indicated): Hormone [...] Biopsy 09/01/2014 Volume in cc 15 cc [place] grade/score a+b=c 4+3=7-- intermediate risk prostate cancer [...] of education: N/A 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 Smoking [...] sporting events. He will be going to [place] in September to attend a [facility] tournament. He feels he is coping well. [...] Visit from 05/31/2017 in Radiation Oncology at [facility] Weight 91.7 kg (202 lb 3.2 [...] content normal. Vitals reviewed. 05/24/2017 labs CA=9.3, LVX=669, BUN=37, CREAT=1.45, EGFR=48.25, EU=922, K=3.4, DK=922, CO2=25.1, MG=2.0 Date PSA testosterone 05/23/2017 < [...] AM EDT Office Visit Hematology/Oncology at [address] [phone] Adrianne Ramon MD [facility] HEMATOLOGY [place] [address] Yael Merlos APRN [facility] [place] [address] 11/21/2023 10:00 AM EDT Infusion Hematology Oncology at [address] [address] 11/23/2023 11:00 AM EDT Office Visit [place]ematology [place] [address] Reynold Proctor MD [facility] [place] [address] 11/23/2023 1:00 PM EDT Appointment Hematology and Oncology at [place] [address] 11/23/2023 2:00 PM EDT Office Visit Hematology and Oncology at [address] Micha Givens Jr., MD [facility] DR [place]EMATOLOG[place] [address] 11/23/2023 3:30 PM EDT Hospital [place] [address] Micha Givens Jr., MD [facility] DR [place]EMATOLOG[place] [address] documented as of this encounter Visit Diagnoses Diagnosis Malignant neoplasm of prostate documented in this encounter Care Teams Regulatory Coordinator Relationship Specialty Start Date End Date Bobby Headley MD [address] [place] [address] PCP - General 01/29/14 11/28/17 documented as of this encounter
--- OUTSIDE RECORDS SUMMARY | 2023-11-16 19:03 | XMS_ITS | Encounter Summary ---
[place] [address] Care Team Providers Care [id number] Armor Crewman Name Role Phone Bobby Headley MD Primary Care Provider [phone] Reason for Visit * Reason Comments Radiation Follow-up prostate cancer Encounter Details Date Type Department Care Team (Late st Contact Info) Description 02/25/2015 1:45 PM EST Office Visit Radiation Oncology at [address] [phone] Anna Carr [address] [place] [address] Malignant neoplasm of prostate Social [...] this encounter Progress Notes * Anna Carr, NON PROFIT JOB TITLES - 02/24/2015 4:31 PM EST Images from [...] elevated at 5.4 with only 9% free. Aulander with Dr. Vergara July 2014 who offered biopsy which was performed 09/01/14, demonstrating Gleason4 + 3 disease in a single core at the right apex. Forty-five percent of that core did appear to be involved. Perineural invasion was not seen. Pathology had been reviewed here at [facility]. 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 Smoking [...] prostate cancer with pretreatment PSA of 5.4 [place] 4+3=7. He was treated with external beam [...] AM EDT Office Visit Hematology/Oncology at [address] [phone] Adrianne Ramon MD [facility] DR [place] [address] Yael Merlos APRN [facility] [place] [address] 11/21/2023 10:00 AM EDT Infusion Hematology Oncology at [address] [address] 11/23/2023 11:00 AM EDT Office Visit Hematology [place] [address] Reynold Proctor MD [facility] [place] [address] 11/23/2023 1:00 PM EDT Appointment Hematology [place] [address] 11/23/2023 2:00 PM EDT Office Visit Hematology [place] [address] Micha Givens Jr., MD [facility] DR [place] [address] 11/23/2023 3:30 PM EDT Hospital [place] [address] Micha Givens Jr., MD [facility] DR [place] [address] documented as of this encounter Visit Diagnoses Diagnosis Malignant neoplasm of prostate documented in this encounter Care Teams M60A2 Armor Crewman Relationship Specialty Start Date End Date Bobby Headley MD [address] [place] [address] PCP - General 01/29/14 11/28/17 documented as of this encounter
--- OUTSIDE RECORDS SUMMARY | 2023-11-16 19:03 | XMS_ITS | Encounter Summary ---
[place] [address] Care Team Providers Care Riveter Name Role Phone Bobby Headley MD Primary Care Provider [phone] Encounter Details Date Type Department Care Team (Late st Contact Info) Description 02/01/2015 Notes Only Radiation Oncology at [address] [phone] Nitin Stauffer MD [address] [place] [address] DR RADIATION ONCOLOGY [place], [place] [phone] Social History Tobacco Use Types Packs/Day Years [...] at the [facility] in [place], [place]. Details of his radiation treatment course are as below. RT information: Date of RT Start: 11/25/14 Date of RT Completion: 01/26/15 Dose and targets: 70.2 Gy to the proximal SV and prostate, 79.2Gy to the prostate Field orientation: Dynamic arc VMAT Woodwinds Teacher Target Coverage (70Gy isodose line indicated): SPECIAL [...] AM EDT Office Visit Hematology/Oncology at [address] [phone] Adrianne Ramon MD [facility] HEMATOLOGY [place] [address] Yael Merlos APRN [facility] HEMATOLOGY [place] [address] 11/21/2023 10:00 AM EDT Infusion Hematology Oncology at [address] [phone] 11/23/2023 11:00 AM EDT Office Visit Hematology [place] [address] Reynold Proctor MD [facility] [place] [address] 11/23/2023 1:00 PM EDT Appointment Hematology [place] [address] 11/23/2023 2:00 PM EDT Office Visit Hematology and Oncology at [place] [phone] Micha Givens Jr., MD [facility] DR [place] [address] 11/23/2023 3:30 PM EDT Hospital Encounter MRI at [place] [phone] Micha Givens Jr., MD [facility] DR [place] [address] documented as of this encounter Visit Diagnoses Not on filedocumented in this encounter Care Teams Riveter Relationship Specialty Start Date End Date Bobby Headley MD [address] [place] [address] PCP - General 01/29/14 11/28/17 documented as of this encounter
--- OUTSIDE RECORDS SUMMARY | 2023-11-16 19:03 | XMS_ITS | Encounter Summary ---
[place] [address] Care Team Providers Care Textile Machine Mechanic Name Role Phone Bobby Headley MD Primary Care Provider [phone] Encounter Details Date Type Department Care Team (Late st Contact Info) Description 11/26/2014 9:00 AM EDT Office Visit Radiation Oncology at [address] [phone] Nitin Stauffer MD [address] [place] [address] DR RADIATION ONCOLOGY [place], [place] [phone] Cancer of prostate with intermediate recurrence risk [...] bleeding A Radiation Oncology doctor is production sound mixer after our normal hours and on weekends. To call for urgent medical issues from radiation treatments that can not wait until normal business hours, please call and have the aqua ammonia operator page the Radiation Oncologist production sound mixer. Nitin Ramirez MD documented in this encounter Progress Notes * Nitin Stauffer MD - 11/26/2014 11:16 AM EDT [facility] On Treatment Visit Patient ID: Cheo [...] AM EDT Office Visit Hematology/Oncology at [address] [phone] Adrianne Ramon MD [facility] DR HEMATOLOGY [place] [address] Yael Merlos APRN [facility] DR HEMATOLOGY [place] [address] 11/21/2023 10:00 AM EDT Infusion Hematology Oncology at [address] [phone] 11/23/2023 11:00 AM EDT Office Visit Hematology [place] [address] Reynold Proctor MD [facility] [place] [address] 11/23/2023 1:00 PM EDT Appointment Hematology [place] [address] 11/23/2023 2:00 PM EDT Office Visit Hematology and Oncology at [place] [phone] Micha Givens Jr., MD [facility] [place] [address] 11/23/2023 3:30 PM EDT Hospital Encounter MRI at [place] [phone] Micha Givens Jr., MD [facility] [place] [address] documented as of this encounter Visit Diagnoses Diagnosis Cancer of prostate with intermediate recurrence risk (stage T2b-c or [place] 7 or PSA 10-20) Malignant neoplasm of prostate documented in this encounter Care Teams Textile Machine Mechanic Relationship Specialty Start Date End Date Bobby Headley MD [address] [place] [address] PCP - General 01/29/14 11/28/17 documented as of this encounter
--- OUTSIDE RECORDS SUMMARY | 2023-11-16 19:03 | XMS_ITS | Encounter Summary ---
[place] [address] Care Team Providers Care Catalyst Unit Operator Name Role Phone Bobby Headley MD Primary Care Provider [phone] Encounter Details Date Type Department Care Team (Latest Contact Info) Description 10/19/2014 9:57 AM EDT - 10/19/2014 11:59 PM EDT [place] [phone] Nitin Stauffer MD [address] [place] [address] DR RADIATION ONCOLOGY [place], [place] [phone] Cancer of prostate with intermediate recurrence risk (stage T2b-c or [place] 7 or PSA 10-20) Discharge Disposition: Home [...] AM EDT Office Visit Hematology/Oncology at [address] [phone] Adrianne Ramon MD [facility] [place] [address] Yael Merlos APRN [facility] [place] [address] 11/21/2023 10:00 AM EDT Infusion Hematology Oncology at [address] [address] 11/23/2023 11:00 AM EDT Office Visit [place] [phone] Reynold Proctor MD [facility] [place] [address] 11/23/2023 1:00 PM EDT Appointment [place]emat[place] [phone] 11/23/2023 2:00 PM EDT Office Visit [place]ematology [place] [phone] Micha Givens Jr., MD [facility] [place]AT[place] [address] 11/23/2023 3:30 PM EDT [place] [phone] Micha Givens Jr., MD [facility] DR [place] [address] documented as of this encounter Procedures Procedure Name Priority Date/Time Associated Diagnosis Comments MRI PELVIS SOFT TISSUE (GI ENTERTAINMENT REPORTER) WWO CONTRAST Routine 10/19/2014 11:54 AM EDT [...] 2. Staging. ??Date of sextant biopsy: 09/24/2014 [place]ard score: 4+3 TECHNIQUE: Multiparametric MRI of the [...] reviewed by the attending Nitin Stauffer MD [facility] [place] ORDERABLES documented in this encounter Visit [...] mLs documented in this encounter Care Teams Catalyst Unit Operator Relationship Specialty Start Date End Date Bobby Headley MD [address] [place] [address] PCP - General 01/29/14 11/28/17 documented as of this encounter
--- OUTSIDE RECORDS SUMMARY | 2023-11-16 19:03 | XMS_ITS | Encounter Summary ---
[place] [address] Care Team Providers Care Architect Internship Name Role Phone Bobby Headley MD Primary Care Provider [phone] Encounter Details Date Type Department Care Team (Late Contact Info) Description 10/21/2014 Orders Only Radiation Oncology at [address] [phone] Nitin Stauffer MD [address] [place] [address] DR RADIATION ONCOLOGY [place], [place] [phone] Social History Tobacco Use Types Packs/Day Years [...] AM EDT Office Visit Hematology/Oncology at [address] [phone] Adrianne Ramon MD [facility] HEMATOLOGY [place] [address] Yael Merlos, ORACLE EBS DEVELOPER [facility] HEMATOLOGY [place] [address] 11/21/2023 10:00 AM EDT Infusion Hematology Oncology at [address] [address] 11/23/2023 11:00 AM EDT Office Visit Hematology and Oncology at [place] [phone] Reynold Proctor MD [facility] [place] [address] 11/23/2023 1:00 PM EDT Appointment Hematology and Oncology at [address] 11/23/2023 2:00 PM EDT Office Visit Hematology and Oncology at [place] [phone] Micha Givens Jr., MD [facility] DR HEMATOLOGY [place] [address] 11/23/2023 3:30 PM EDT Hospital Encounter MRI at [place] [phone] Micha Givens Jr., MD [facility] DR HEMATOLOGY [place] [address] documented as of this encounter Procedures Procedure [...] is a Non-reportable exam Nitin Stauffer MD [facility] FILM LIBRARY ORD ERABLES documented in this encounter Visit Diagnoses Not on filedocumented in this encounter Care Teams Architect Internship Relationship Specialty Start Date End Date Bobby Headley MD [address] [place] [address] PCP - General 01/29/14 11/28/17 documented as of this encounter
--- OUTSIDE RECORDS SUMMARY | 2023-11-16 19:03 | XMS_ITS | Encounter Summary ---
[place] [address] Care Team Providers Care Tailor Garment Fitter Name Role Phone Bobby Headley MD Primary Care Provider [phone] Encounter Details Date Type Department Care Team (Latest Contact Info) Description 01/04/2015 Unscheduled Encounter Radiation Oncology at [address] [phone] Lidia Reno, RN Malignant neoplasm of prostate [...] AM EDT Office Visit Hematology/Oncology at [address] [phone] Adrianne Ramon MD [facility] DR [place] [address] Yael Merlos APRN [facility] DR [place] [address] 11/21/2023 10:00 AM EDT Infusion Hematology Oncology at [address] [phone] 11/23/2023 11:00 AM EDT Office Visit Hematology [place] [phone] Reynold Proctor MD [facility] [place] [address] 11/23/2023 1:00 PM EDT Appointment Hematology [place] [address] 11/23/2023 2:00 PM EDT Office Visit Hematology [place] [phone] Micha Givens Jr., MD [facility] [place] [address] 11/23/2023 3:30 PM EDT Hospital [place] [address] Micha Givens Jr., MD [facility] DR [place] [address] documented as of this encounter Visit Diagnoses Diagnosis Malignant neoplasm of prostate documented in this encounter Care Teams Tailor Garment Fitter Relationship Specialty Start Date End Date Bobby Headley MD [address] [address] PCP - General 01/29/14 11/28/17 documented as of this encounter
--- OUTSIDE RECORDS SUMMARY | 2023-11-16 19:03 | XMS_ITS | Encounter Summary ---
Author Organization Formerly [facility] [place] [address] Care Team Providers Care Mold Yard Supervisor Name Role Phone Bobby Headley MD Primary Care Provider [phone] Encounter Details Date Type Department Care Team (Late st Contact Info) Description 03/01/2016 11:00 AM EST Office Visit Hematology/Oncology at [address] [phone] Annika Quezada APRN [facility] [place] [address] Prostate cancer Social History Tobacco Use Types [...] elevated at 5.4 with only 9% free. [place] with Dr. Vergara July 2014 who offered biopsy which was performed 09/01/14, demonstrating Gleason4 + 3 disease in a single core at the right apex. Forty-five percent of that core did appear to be involved. Perineural invasion was not seen. Pathology had been reviewed here at [facility]. 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 [...] to their sporting events. He went to [place] in September to attend a [employer] tournament and had a great time. He [...] AM EDT Office Visit Hematology/Oncology at [address] [phone] Adrianne Ramon MD [facility] DR [place] [address] Yael Merlos APRN [facility] [place] [address] 11/21/2023 10:00 AM EDT Infusion Hematology Oncology at [address] [phone] 11/23/2023 11:00 AM EDT Office Visit [place] [address] Reynold Proctor MD [facility] [place] [address] 11/23/2023 1:00 PM EDT Appointment [place] [address] 11/23/2023 2:00 PM EDT Office Visit [place] [address] Micha Givens Jr., MD [facility] DR HEMATOLOGY [place] [address] 11/23/2023 3:30 PM EDT [place] [address] Micha Givens Jr., MD [facility] DR HEMATOLOG[place] [address] documented as of this encounter Visit Diagnoses Diagnosis Prostate cancer Malignant neoplasm of prostate documented in this encounter Care Teams Mold Yard Supervisor Relationship Specialty Start Date End Date Bobby Headley MD [address] [place] [address] PCP - General 01/29/14 11/28/17 documented as of this encounter
--- OUTSIDE RECORDS SUMMARY | 2023-11-16 19:03 | XMS_ITS | Encounter Summary ---
[place] [address] Care Team Providers Care Industrial Sociologist Name Role Phone Bobby Headley MD Primary Care Provider [phone] Encounter Details Date Type Department Care Team (Late Contact Info) Description 09/28/2014 Abstract Radiation Oncology at [address] [phone] Christine Garcia, RN Social History Tobacco Use [...] AM EDT Office Visit Hematology/Oncology at [address] [phone] Adrianne Ramon MD [facility] HEMATOLOGY [place] [address] Yael Merlos APRN [facility] HEMATOLOGY [place] [address] 11/21/2023 10:00 AM EDT Infusion Hematology Oncology at [address] [phone] 11/23/2023 11:00 AM EDT Office Visit Hematology and Oncology at [place] [phone] Reynold Proctor MD [facility] [place] [address] 11/23/2023 1:00 PM EDT Appointment Hematology and Oncology at [place] [address] 11/23/2023 2:00 PM EDT Office Visit Hematology and Oncology at [place] [address] Micha Givens Jr., MD [facility] DR [place] [address] 11/23/2023 3:30 PM EDT Hospital [place] [address] Micha Givens Jr., MD [facility] DR [place] [address] documented as of this encounter Visit Diagnoses Not on filedocumented in this encounter Care Teams Industrial Sociologist Relationship Specialty Start Date End Date Bobby Headley MD [address] [place] [address] PCP - General 01/29/14 11/28/17 documented as of this encounter
--- OUTSIDE RECORDS SUMMARY | 2023-11-16 19:03 | XMS_ITS | Encounter Summary ---
Author Organization [facility] Address [facility] [place] [address] Care Team Providers Care Rubber Tester Name Role Phone Bobby Headley MD Primary Care Provider [phone] Reason for Visit * Reason Comments Prostate Cancer Lupron 22.5 mg into left buttocks Encounter Details Date Type Department Care Team (Late st Contact Info) Description 09/29/2014 1:00 PM EDT Infusion Hematology Oncology at [address] [phone] CL[address], [facility] HEM/ONC William German MD [facility] DR [place] [address] Malignant neoplasm of prostate Discharge Disposition: Home [...] AM EDT Office Visit Hematology/Oncology at [address] [phone] Adrianne Ramon MD [facility] [place] [address] Yael Merlos APRN [facility] [place] [address] 11/21/2023 10:00 AM EDT Infusion Hematology Oncology at [address] [phone] 11/23/2023 11:00 AM EDT Office Visit Hematology and Oncology at [place] [phone] Reynold Proctor MD [facility] [place] [address] 11/23/2023 1:00 PM EDT Appointment Hematology [place] [address] 11/23/2023 2:00 PM EDT Office Visit Hematology and Oncology at [place] [phone] Micha Givens Jr., MD [facility] [place] [address] 11/23/2023 3:30 PM EDT Hospital [place] [phone] Micha Givens Jr., MD [facility] [place] [address] documented as of this encounter Visit Diagnoses [...] Gluteal documented in this encounter Care Teams Rubber Tester Relationship Specialty Start Date End Date Bobby Headley MD [address] [place] [address] PCP - General 01/29/14 11/28/17 documented as of this encounter
--- OUTSIDE RECORDS SUMMARY | 2023-11-16 19:03 | XMS_ITS | Encounter Summary ---
Author Organization [facility] [place] [address] Care Team Providers Care Professor Of Literature Name Role Phone Bobby Headley MD Primary Care Provider [phone] Encounter Details Date Type Department Care Team (Late st Contact Info) Description 05/24/2016 11:00 AM EDT Office Visit Hematology/Oncology at [address] [phone] Annika Quezada APRN [facility] [place] [address] Prostate cancer Social History Tobacco Use Types [...] prostate cancer with pretreatment PSA of 5.4 Foster 4+3=7. He was treated with external beam [...] elevated at 5.4 with only 9% free. [place] with Dr. Vergara July 2014 who offered biopsy which was performed 09/01/14, demonstrating Gleason4 + 3 disease in a single core at the right apex. Forty-five percent of that core did appear to be involved. Perineural invasion was not seen. Pathology had been reviewed here at [facility]. 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 Smoking status: Former Smoker Packs/day: 1.00 Types: Cigarettes ??? Smokeless tobacco: Former User Quit date: 02/19/1986 Comment: [place] [place] ??? Alcohol use 1.8 oz/week 3 Standard [...] to their sporting events. He went to [place] last September to attend a [employer] tournament andhad a great time. He feels [...] AM EDT Office Visit Hematology/Oncology at [address] [phone] Adrianne Ramon MD [facility] [place] [address] Yael Merlos APRN [facility] [place] [address] 11/21/2023 10:00 AM EDT Infusion Hematology Oncology at [address] [phone] 11/23/2023 11:00 AM EDT Office Visit Hematology [place] [address] Reynold Proctor MD [facility] [place] [address] 11/23/2023 1:00 PM EDT Appointment Hematology [place] [address] 11/23/2023 2:00 PM EDT Office Visit Hematology [place] [phone] Micha Givens Jr., MD [facility] DR [place] [address] 11/23/2023 3:30 PM EDT Hospital [place] [address] Micha Givens Jr., MD [facility] DR [place] [address] documented as of this encounter Visit Diagnoses Diagnosis Prostate cancer Malignant neoplasm of prostate documented in this encounter Care Teams Professor Of Literature Relationship Specialty Start Date End Date Bobby Headley MD [address] [place] [address] PCP - General 01/29/14 11/28/17 documented as of this encounter
--- OUTSIDE RECORDS SUMMARY | 2023-11-16 19:03 | XMS_ITS | Encounter Summary ---
[place] [address] Care Team Providers Care Regional Sales Engineer Name Role Phone Bobby Headley MD Primary Care Provider [phone] Encounter Details Date Type Department Care Team (Late st Contact Info) Description 10/15/2014 Telephone Radiation Oncology at [address] [phone] Christine Garcia RN Social History [...] Post-Procedure Phone Note Name: Cheo Freire A#: [id number] : 1950 Date/Time of Call: 10/15/2014 6:10 [...] x Comments/interventions: Section Radiation Oncology [facility] documented in this encounter Plan of Treatment Upcoming Encounters Date Type Department Care Team (Late st Contact Info) Description 11/21/2023 9:30 AM EDT Office Visit Hematology/Oncology at [address] [phone] Adrianne Ramon MD [facility] DR HEMATOLOGY [place] [address] Yael Merlos APRN [facility] DR HEMATOLOGY [place] [address] 11/21/2023 10:00 AM EDT Infusion Hematology Oncology at [address] [phone] 11/23/2023 11:00 AM EDT Office Visit Hematology [place] [phone] Reynold Proctor MD [facility] [place] [address] 11/23/2023 1:00 PM EDT Appointment Hematology [place] [phone] 11/23/2023 2:00 PM EDT Office Visit Hematology [place] [phone] Micha Givens Jr., MD [facility] DR HEMATOLOGY [place] [address] 11/23/2023 3:30 PM EDT Hospital [place] [address] Micha Givens Jr., MD [facility] DR HEMATOLOGY [place] [address] documented as of this encounter Visit Diagnoses Not on filedocumented in this encounter Care Teams Regional Sales Engineer Relationship Specialty Start Date End Date Bobby Headley MD [address] [place] [address] PCP - General 01/29/14 11/28/17 documented as of this encounter
--- OUTSIDE RECORDS SUMMARY | 2023-11-16 19:03 | XMS_ITS | Encounter Summary ---
[place] [address] Care Team Providers Care Database Designer Name Role Phone Bobby Headley MD Primary Care Provider [phone] Encounter Details Date Type Department Care Team (Late Contact Info) Description 10/21/2014 Telephone Radiation Oncology at [address] [phone] Nitin Stauffer MD [address] [place] [address] RADIATION ONCOLOGY [place], [place] [phone] Social History Tobacco Use Types Packs/Day Years [...] AM EDT Office Visit Hematology/Oncology at [address] [phone] Adrianne Ramon MD [facility] [place] [address] Yael Merlos, KARLA [facility] [place]EMATOLOGY [place] [address] 11/21/2023 10:00 AM EDT Infusion Hematology Oncology at [address] [phone] 11/23/2023 11:00 AM EDT Office Visit Hematology and Oncology at [place] [phone] Reynold Proctor MD [facility] [address] 11/23/2023 1:00 PM EDT Appointment Hematology and Oncology at [address] 11/23/2023 2:00 PM EDT Office Visit Hematology and Oncology at [place] [phone] Micha Givens Jr., MD [facility] [place] [address] 11/23/2023 3:30 PM EDT Hospital [place] [address] Micha Givens Jr., MD [facility] HEMATOLOGY [place] [address] documented as of this encounter Visit Diagnoses Not on filedocumented in this encounter Care Teams Database Designer Relationship Specialty Start Date End Date Bobby Headley MD [address] [place] [address] PCP - General 01/29/14 11/28/17 documented as of this encounter
--- OUTSIDE RECORDS SUMMARY | 2023-11-16 19:03 | XMS_ITS | Encounter Summary ---
Author Organization [facility] [place] [place] [address] Care Team Providers Care Farmworker Fryer Farm Name Role Phone Bobby Headley MD Primary Care Provider [phone] Encounter Details Date Type Department Care Team (Latest Contact Info) Description 10/05/2014 Unscheduled Encounter Radiation Oncology at [address] [phone] Christine Garcia, RN Malignant neoplasm [...] Prescriptions to get filled and things to moss picker from the pharmacy: [employer] Enema [...] relax for the procedure.You will need a fast food delivery driver to take you home. ??? Change [...] any other concerns. Future Appointments: [place] at [facility]: 10/19 at 11:10 AM arrive at : Your CT simulation, planning session will be done at [facility]. 10/21 arrive at 10:30. You will see the nurse first for patient education .You will need a comfortably full bladder by 11:00 How to reach us: Radiation Oncology [facility] [place] [address] fax After office hours phone: [phone] - ask for radiation oncology doctor structural steel ironworker Radiation Oncology [address] [address] documented in this encounter Progress Notes * Christine Fernando RN - 10/05/2014 2:22 PM EDT Radiation Oncology Nurse Note [place], [place] See AVS for instructions provided to patient and his in preparation for Gold press tool maker implant procedure scheduled for Sun10/14/14. Prescriptions for Cipro and Dexamethasone sent to [facility]. documented in this encounter Plan of Treatment Upcoming Encounters Date Type Department Care Team (Late st Contact Info) Description 11/21/2023 9:30 AM EDT Office Visit Hematology/Oncology at [address] [phone] Adrianne Ramon MD [facility] HEMATOLOGY [place] [address] Yael Merlos APRN [facility] [place] [address] 11/21/2023 10:00 AM EDT Infusion Hematology Oncology at [address] [phone] 11/23/2023 11:00 AM EDT Office Visit Hematology [place] [address] Reynold Proctor MD [facility] [place] [address] 11/23/2023 1:00 PM EDT Appointment Hematology and Oncology at [place] [phone] 11/23/2023 2:00 PM EDT Office Visit Hematology and Oncology at [place] [phone] Micha Givens Jr., MD [facility] DR [place] [address] 11/23/2023 3:30 PM EDT Hospital [place] [phone] Micha Givens Jr., MD [facility] DR [place] [address] documented as of this encounter Visit Diagnoses Diagnosis Malignant neoplasm of prostate documented in this encounter Care Teams Farmworker Fryer Farm Relationship Specialty Start Date End Date Bobby Headley MD [address] [place] [address] PCP - General 01/29/14 11/28/17 documented as of this encounter
--- OUTSIDE RECORDS SUMMARY | 2023-11-16 19:03 | XMS_ITS | Encounter Summary ---
[place] [address] Care Team Providers Care Steam Gigger Name Role Phone Bobby Headley MD Primary Care Provider [phone] Reason for Visit * Reason Comments Prostate Cancer Lupron injection Encounter Details Date Type Department Care Team (Late st Contact Info) Description 12/22/2014 8:30 AM EST Infusion Hematology Oncology at [address] [phone] Malignant neoplasm of prostate Social [...] AM EDT Office Visit Hematology/Oncology at [address] [phone] Adrianne Ramon MD [facility] [place]AT[place] [address] Yael Merlos APRN [facility] [place] [address] 11/21/2023 10:00 AM EDT Infusion Hematology Oncology at [address] [phone] 11/23/2023 11:00 AM EDT Office Visit Hematology and Oncology at [place] [phone] Reynold Proctor MD [facility] [place] [address] 11/23/2023 1:00 PM EDT Appointment Hematology [place] [address] 11/23/2023 2:00 PM EDT Office Visit Hematology and Oncology at [place] [phone] Micha Givens Jr., MD [facility] [place] [address] 11/23/2023 3:30 PM EDT Hospital Encounter MRI at [place] [phone] Micha Givens Jr., MD [facility] [place] [address] documented as of this encounter Visit Diagnoses [...] Gluteal documented in this encounter Care Teams Steam Gigger Relationship Specialty Start Date End Date Bobby Headley MD [address] [place] [address] PCP - General 01/29/14 11/28/17 documented as of this encounter
--- OUTSIDE RECORDS SUMMARY | 2023-11-16 19:03 | XMS_ITS | Encounter Summary ---
Author [place] [address] Care Team Providers Care Disposal Plant Operator Name Role Phone Bobby Headley MD Primary Care Provider Reason for Visit * Reason Comments Radiation Follow-up prostate cancer Encounter Details Date Type Department Care Team (Late st Contact Info) Description 09/09/2015 10:30 AM EDT Office Visit Radiation Oncology at [address] [phone] Anna Carr [address] [place] [address] Malignant neoplasm of prostate Social [...] 5.4 Vitals Office Visit from 09/09/2015 in [facility] Radiation Oncology Weight - Scale 93.4 [...] prostate cancer with pretreatment PSA of 5.4 [place] 4+3=7. He was treated with external beam [...] elevated at 5.4 with only 9% free. [place] with Dr. Vergara July 2014 who offered biopsy which was performed 09/01/14, demonstrating Gleason4 + 3 disease in a single core at the right apex. Forty-five percent of that core did appear to be involved. Perineural invasion was not seen. Pathology had been reviewed here at [facility]. 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 [...] sporting events. He will be going to [place] in September to attend a [employer] tournament. He feels he is coping well. [...] 100 Vitals Office Visit from 09/09/2015 in [facility] Radiation Oncology Weight - Scale 93.4 [...] AM EDT Office Visit Hematology/Oncology at [address] [phone] Adrianne Ramon MD [facility] DR HEMATOLOGY [place] [address] Yael Merlos APRN [facility] DR HEMATOLOGY [place] [address] 11/21/2023 10:00 AM EDT Infusion Hematology Oncology at [address] [phone] 11/23/2023 11:00 AM EDT Office Visit Hematology [place] [address] Reynold Proctor MD [facility] [place] [address] 11/23/2023 1:00 PM EDT Appointment Hematology [place] [address] 11/23/2023 2:00 PM EDT Office Visit Hematology [place] [address] Micha Givens Jr., MD [facility] DR HEMATOLOGY [place] [address] 11/23/2023 3:30 PM EDT Hospital [place] [address] Micha Givens Jr., MD [facility] DR HEMATOLOGY [place] [address] documented as of this encounter Visit Diagnoses Diagnosis Malignant neoplasm of prostate documented in this encounter Care Teams Disposal Plant Operator Relationship Specialty Start Date End Date Bobby Headley MD [address] [place] [address] PCP - General 01/29/14 11/28/17 documented as of this encounter
--- NOTE | 2023-11-16 19:15 | DI.CT_ITS ---
Exam(s) CT CERVICAL SPINE WO EXAM: CT CERVICAL SPINE WO CLINICAL HISTORY: neck pain. TECHNIQUE: Imaging Protocol: Axial computed tomography images with coronal and sagittal reformatted images were created and reviewed COMPARISON: CT CT NECK W from 09/21/[address] CHEST PE ABD PELVIS W from 11/15/2022 FINDINGS: Bones: No fracture or dislocations are seen. The alignment of the cervical spine is normal including the craniocervical junction and cervicothoracic junction. Note is made of a sclerotic focus in the T1 vertebral body. In the absence of cancer history, this likely reflects a bone island. C2-3: No focal disc herniation or significant central spinal canal stenosis is present. No significa nt neural foraminal stenosis is present. C3-4: No focal disc herniation or central spinal canal stenosis. There are mild degenerative changes seen at the uncovertebral joints but no significant neural foraminal stenosis. C4-5: There are small osteophytes seen at the endplates. Mild prominence of the disc is seen. No si gnificant central spinal canal stenosis is present. There are degenerative changes seen on the right at the uncovertebral joint causing mild narrowing of the neural foramen. No significant left neural foraminal stenosis is present. C5-6: Endplate osteophytes are seen at this level. No significant central spinal canal stenosis or n eural foraminal stenosis is seen. C6-7: Endplate osteophytes are seen at this level. No significant central spinal canal stenosis is s een. Degenerative changes are seen on the right causing very mild neural foraminal narrowing. No si gnificant left neural foraminal stenosis. C7-T1: No focal disc herniation, central spinal canal or neural foraminal stenosis. Soft Tissues: Atherosclerotic calcifications are present. Note is made of a 1.3 x 2.9 cm subcutaneou s lipoma overlying the right occipital bone. (Series 10, image 5). Lung apices: There is an opacity in the left lung apex. Infiltrate versus mass. It is incompletely imaged on this examination.. IMPRESSION: 1. Moderate cervical spondylosis resulting in neural foraminal narrowing as described above. 2. Left upper lobe opacity. Infiltrate versus mass. Please correlate clinically. A CT scan of the chest with contrast is recommended for further characterization. Unexpected findings RADIATION DOSE DELIVERED: 347.97mGy.cm Total DLP 347.97mGy.cm Total DLP DATA REPOSITORY: All CT scans at this facility are submitted to the National Radiology Data Registry (NRDR) Dose Index Registry (DIR) with the [employer] (A[employer]). RADIATION OPTIMIZATION: All CT scans at this facility use at least one of these dose optimization te chniques: automated exposure control; mA and/or kV adjustment per patient size (includes targeted exa ms where dose is matched to clinical indication); or iterative reconstruction.
[2023-11-16] MEDS: Gabapentin 300 MG CAP 900 MG PO (19:46)
--- NOTE | 2023-11-16 20:24 | DI.VRAD_ITS ---
PROCEDURE INFORMATION: Exam: CT Cervical Spine Without Contrast Exam date and time: 11/16/2023 7:33 PM Age: 73 years old Clinical indication: Neck pain TECHNIQUE: Imaging protocol: Computed tomography of the cervical spine without contrast. COMPARISON: PT NM PET CT STANDARD SKULL BASE TO MID-THIGH 03/06/2023 8:08 AM FINDINGS: Bones: Osseous alignment is normal. No acute fracture. Significant multilevel disc space narrowing with moderate disc bulge and uncovertebral spurring throughout the cervical spine. Moderate facet arthropathy at C2-C3 with minimal grade 1 anterolisthesis of C2. Moderate degenerative changes at the atlantodental joint. Lungs: Focal area of dense parenchymal opacity partially visualized left lung apex exhibits a small area of cavitation. Right lung apex appears clear. Vasculature: Dense atherosclerotic calcification in the bilateral carotid arteries. Soft tissues: Unremarkable. IMPRESSION: 1. No acute abnormality of the cervical spine. Multilevel degenerative changes as noted 2. Partially visualized focal parenchymal density with small area of cavitation in the left lung apex. Differential diagnosis would include pneumonia versus neoplasm, depending on clinical presentation history. Dictated and Authenticated by: Ye Benz MD. Ordering:[facility] Kelly Beth MD
--- NOTE | 2023-11-16 20:45 | ED.GENADUL_ITS ---
Discharge Plan Disposition Patient Disposition: Home Condition: Stable Discharge Details Clinical Impression: Neck pain Primary Care Provider: Frederick Meade ED Provider: Huey Mendoza Home Meds and New Rx's Prescriptions: New gabapentin 300 mg capsule 300 mg PO TID Qty: 60 0RF lidocaine [Lidoderm] 5 % adhesive patch,medicated 1 patch topical DAILY Qty: 15 0RF Rx Instructions: leave on most painful area for up to 12 hrs No Action All Day Allergy (cetirizine) 10 mg capsule 10 mg PO DAILY PRN aspirin 325 mg tablet 325 mg PO DAILY psyllium husk [Metamucil] 0.4 gram capsule 0.4 g PO DAILY acetaminophen [Tylenol Extra Strength] 500 mg tablet 1,000 mg PO Q6H PRN amlodipine 5 mg tablet 5 mg PO DAILY Qty: 90 3RF (DME) blood-glucose meter [Anbado Videouch UltraMini] 1 EACH kit 1 ea Miscellaneous DAILY Qty: 1 (DME) pen needle, diabetic [1st Tier Unifine Pentips] 31 gauge x 1/4 needle See Rx Instructions .Route Qty: 100 0RF Rx Instructions: As directed allopurinol 100 mg tablet 200 mg PO DAILY Qty: 180 3RF (DME) lancets Misc 1 ea Intradermal DAILY Qty: 100 3RF Rx Instructions: test QID lenalidomide [Revlimid] 20 mg capsule 20 mg PO DAILY Rx Instructions: swallow whole with glass of water; do not open, crush, chew , break, or dissolve potassium chloride 20 mEq tablet extended release 20 meq PO DAILY Rx Instructions: for 30 days colchicine 0.6 mg tablet 0.6 mg PO DAILY PRN (DME) blood sugar diagnostic Strip See Dose Instructions .ROUTE .MEDSUPPLY Qty: 100 3RF Dose Instruction: As directed Rx Instructions: test TID docusate sodium 100 mg capsule 100 mg PO BID PRN insulin asp prt-insulin aspart [Novolog Mix 70-30FlexPen U-100] 100 unit/mL (70-30) insulin pen 9 unit subcut QDAY Qty: 15 0RF Rx Instructions: 11/08/23: Decreased to 9 units once daily. See task. -hb prochlorperazine maleate 10 mg tablet 10 mg PO Q8H PRN Patient Comments: TAKE ONE TABLET BY MOUTH EVERY 6 HOURS NEEDED FOR NAUSEA Rituxan 10 mg/mL concentrate IV Discharge Instructions Instructions: Neck Pain ED Additional Instructions: * he can take 2 of the diazepam pills tonight before bed * continue motrin and tylenol * gabapentin and lidoderm patch prescription sent to the pharmacy * if symptoms are not improving after the weekend, please follow up for re- evaluation either here or at PCP * talk to you oncology team about adding an MRI of the cervical spine onto the MRI ordered for this week HPI General Date/Time Provider Initiated Documentation: 11/16/23 19:01 . Limitations to Documentation: no limitations . Information obtained by: patient and family () . HPI Narrative: 73-year-old gentleman with past medical history of B-cell lymphoma, diabetes presents for evaluation of right-sided neck pain. Symptoms started yesterday and have been unrelieved by medication. The patient reports that he woke up with neck pain. Denies any trauma. Denies any weakness, numbness or tingling. He presented yesterday morning to the emergency department was given some medication that gave slight improvement, but not significant. Then later in the day he did have to have endoscopy and colonoscopy and received conscious sedation for that. He reports that he is having not had significant relief. Pain is worse with any movement Related Data Home Medications ?Medication ?Instructions ?Recorded ?Confirmed blood-glucose meter (An[employer]ado Videouch ##1 07/31/16 11/16/23 UltraMini kit) cetirizine 10 mg capsule (All Day 10 mg PO DAILY PRN 01/16/18 11/16/23 Allergy (cetirizine)) amlodipine 5 mg tablet 5 mg PO DAILY #90 tabs 12/05/22 11/16/23 pen needle, diabetic 31 gauge x #100 ea 09/26/23 11/16/2302/22 (1st Tier Unifine Pentips) allopurinol 100 mg tablet 200 mg (2 x 100 mg) PO DAILY #180 10/01/23 11/16/23 tab-caps lancets #100 ea 10/02/23 11/16/23 blood sugar diagnostic #100 ea 10/17/23 11/16/23 colchicine 0.6 mg tablet 0.6 mg PO DAILY PRN 10/17/23 11/16/23 lenalidomide 20 mg capsule 20 mg PO DAILY 10/17/23 11/16/23 (Revlimid) potassium chloride 20 mEq 20 meq PO DAILY 10/17/23 11/16/23 tablet,extended release acetaminophen 500 mg tablet 1,000 mg PO Q6H PRN 10/23/23 11/16/23 (Tylenol Extra Strength) aspirin 325 mg tablet 325 mg PO DAILY 10/23/23 11/16/23 docusate sodium 100 mg capsule 100 mg PO BID PRN 10/23/23 11/16/23 psyllium husk 0.4 gram capsule 0.4 g PO DAILY 10/23/23 11/16/23 (Metamucil) insulin aspar prot-insulin aspart 9 unit (0.09 mL) subcut QDAY #15 mL 11/15/23 11/16/23 100 unit/mL (70-30) subcutaneous pen (Novolog Mix 70-30FlexPen U-100) gabapentin 300 mg capsule 300 mg PO TID #60 caps 11/16/23 lidocaine 5 % topical patch 1 patch topical DAILY #15 ea 11/16/23 (Lidoderm) prochlorperazine maleate 10 mg 10 mg PO Q8H PRN 11/16/23 11/16/23 tablet rituximab 10 mg/mL IV 11/16/23 concentrate,intravenous (Rituxan) Previous Rx's ?Medication ?Instructions ?Recorded amlodipine 5 mg tablet 5 mg PO DAILY #90 tabs 12/05/22 pen needle, diabetic 31 gauge x #100 ea 09/26/2302/22 (1st Tier Unifine Pentips) allopurinol 100 mg tablet 200 mg (2 x 100 mg) PO DAILY #180 10/01/23 tab-caps lancets #100 ea 10/02/23 blood sugar diagnostic #100 ea 10/17/23 insulin aspar prot-insulin aspart 9 unit (0.09 mL) subcut QDAY #15 mL 11/15/23 100 unit/mL (70-30) subcutaneous pen (Novolog Mix 70-30FlexPen U-100) gabapentin 300 mg capsule 300 mg PO TID #60 caps 11/16/23 lidocaine 5 % topical patch 1 patch topical DAILY #15 ea 11/16/23 (Lidoderm) Allergies Allergy/AdvReac Type Severity Reaction Status Date / Time No Known Allergies Allergy Verified 11/16/23 19:00 General Stated Complaint: Orthopedic BENJI: 3 Exam Narrative Exam Narrative: Review of Systems: All systems reviewed & are unremarkable except as noted in HPI and below Well-developed, appears uncomfortable NCAT No midline C-spine tenderness, there is right-sided paraspinal tenderness, no rash or lesions RRR Unlabored respiratory effort no focal neurologic deficits Sensation intact in bilateral upper extremities, good strength and movement in bilateral upper arms Course Vital Signs Vital signs: Vital Signs Temperature 36.5 C 11/16/23 18:56 Pulse 72 11/16/23 18:56 Respiratory Rate 16 11/16/23 18:56 Blood Pressure 118/69 11/16/23 18:56 Pulse Oximetry 93 11/16/23 18:56 Temperature 36.5 C 11/16/23 18:56 Pulse 72 11/16/23 18:56 Respiratory Rate 16 11/16/23 18:56 Respiratory Effort Normal 11/16/23 19:05 Blood Pressure 118/69 11/16/23 18:56 Pulse Oximetry 93 11/16/23 18:56 Oxygen Delivery Method Room Air 11/16/23 18:56 Oxygen Flow Rate 0 11/16/23 18:56 Pain Level 8 11/16/23 18:56 Medical Decision Making Emergent evaluation of atraumatic neck pain. Patient was evaluated in the emergency department earlier today for same symptoms, but did not have relief, did get conscious sedation today and is still having persistent symptoms. He is neurologically intact and has no signs of infection or trauma. He does have a history of B-cell lymphoma, this is a recurrent malignancy and is on therapy for this followed by oncology. Given his age and risk factors, CT scan of his neck was obtained and radiology report was reviewed: IMPRESSION: 1. No acute abnormality of the cervical spine. Multilevel degenerative changes as noted The patient was given gabapentin in the emergency department as well as a Lidoderm patch. He has Valium prescription from yesterday at home. I advised that he can take 2 of these tabs when he is getting into bed. The patient has mobility issues at baseline and I and concerned about polypharmacy. They also have to climb several stairs to get into their apartment. I do not feel that narcotics would be a safe choice for him. They only have three 2 mg diazepam pills at home. I recommend taking 2 tonight before bed. Continuing the L idoderm patch. Starting gabapentin 3 times a day, continuing Motrin and Tylenol. If symptoms or not improving you may benefit from reevaluation. He does have an MRI scheduled of his brain later this week, but I have advised that he may want to talk to his oncology team about adding the C-spine if his symptoms are continuing. Quality:SDOH Health Related Social Needs: No Data to Display PFSH All Active Problems (Updated 11/16/23 @ 20:39 by Huey Mendoza MD) Neck pain (Acute) Acute torticollis (Acute) Iron deficiency (Acute) History of lymphoma (Acute) Hematoma of arm (Acute) Superficial thrombophlebitis of left upper extremity (Acute) Pneumonia (Acute) C. difficile colitis (Acute) Hyponatremia (Acute) Hypokalemia (Acute) SIRS (systemic inflammatory response syndrome) (Acute) Rigors (Acute) Urinary retention (Acute) Thrombocytopenia (Chronic) Acute hypokalemia (Acute) Hemorrhoid thrombosis (Acute) B-cell lymphoma (Acute) Gout (Acute 12/24/07) Diabetes mellitus (Chronic 07/03/12) BS deterioration due to dietary indiscretion Medical History (Updated 11/16/23 @ 20:39 by Huey Mendoza MD) Airway compromise Lymphoma Lymphadenopathy Pain Lymphadenitis Actinic keratosis Fracture of phalanx of finger SOBOE (shortness of breath on exertion) likely due to reduced 02 carrying capacity due to anemia Prostate cancer (10/05/14) 2015 radiation RX/lupron Polyp of colon tiny rectal hyperplastic polyp Overweight regular exercise/dietary discretion advised Nystagmus History of tobacco use Essential hypertension (12/27/12) Diverticulosis of colon without diverticulitis Cataract (07/03/12) Anemia EGD-HH, ESOPH INFLAMMATION; 11/25 COLO-DIVERTICULOSIS, TINY RECTAL POLYP c-scope 2012: hyperpl. polyp Surgical History History of prostate surgery gold posts implanted Hx of appendectomy Hx of colonoscopy Family History Mother , AGE 38 Alcohol abuse Father , AGE 76 Diabetes Sister Diabetes Maternal Grandfather , age 80 Stroke Maternal Grandmother , age 88 Diabetes Social History Smoking/Tobacco Use Status: Former Tobacco Use Quit Date: 02/20/84 Smokeless tobacco user: chewing tobacco (former use) Second Hand Exposure: No Smoking risk assessment performed?: Yes Alcohol Intake: current Alcohol Intake frequency: a few times a month Alcohol type: beer Drug use: Never Substance use type: does not use Details: alcohol: t-2 years Caregiver/Support person: No Household members: spouse Housing: apartment Communication Needs: Corrective Lenses Do you need help understanding health information?: Never Pets and animals: No Sexually active: No Do you think of yourself as: straight/heterosexual Current gender identity: male What is your relationship status?: How often do you talk on the phone with friends or family?: three or more times per week How often do you get together with friends or relatives?: three or more times per week How often do you attend sikhism or oriental orthodox services?: 1-3 times per year Do you belong to any clubs or organized social groups?: yes Panel score (0-1 are the most socially isolated patients): 3 What type of physical activity do you participate in: walking and bicycling Duration: 60-90 minutes/day Frequency: 3-4 times per week Lily/Gnosticist: Mormonism Special lily needs: No Seatbelt use: always Helmet use: Yes Helmet use: always Drive intox or ride w/intox mule driver: No Do you feel safe at home: Yes Do you feel safe in your relationship?: Yes Additional [facility] history: [facility]
[2023-11-16] MEDS: Lidocaine 5% Patch 1 PATCH TP (20:51)
== END 2023-11-16 21:11 | disposition home or self-care (01) ==
PROVIDERS: Emergency Provider Emergency Medicine; PCP Family Medicine
DX: M54.2 Cervicalgia (principal)
CPT/HCPCS: 99284; 72125

== ENCOUNTER 2023-11-21 02:16 | Outpatient (CLI) | payer MEDICARE, SELFPAY ==
[2023-11-21 09:00] LABS: Abs Immature Grans 0.06 10^3/uL (0.0-0.06); Absolute Basophil Count 0.15 10^3/uL (0.0-0.2); Absolute Eosinophil Count 0.54 10^3/uL (0.0-0.7); Absolute Monocyte Count 1.69 10^3/uL (0.1-0.8); Absolute Neutrophil Count 5.69 10^3/uL (1.2-6.7); Basophils % 1.7 %; HCT 36.6 % (40.0-50.0); HGB 11.6 g/dL (13.5-17.5); Immature Grans % 0.7 %; MCH 29.9 pg (27.0-33.0); MCHC 31.7 % (32.0-36.0); MCV 94 fL (80-95); MPV 9.1 fL (8.0-11.0); Monocytes % 18.9 %; Neutrophils % 63.7 %; Platelet Count 359 10^3/uL (130-400); RBC 3.88 10^6/uL (4.36-5.78); RDW 15.9 % (11.8-14.1); WBC 8.93 10^3/uL (4.4-10.8)
[2023-11-21 09:42] LABS: ALT 36 U/L (16-63); AST 15 U/L (15-37); Albumin 2.6 g/dL (3.4-5.0); Alkaline Phosphatase 164 U/L (46-116); Anion Gap 6.5 mmol/L (3-11); BUN 12 mg/dL (7-18); Bilirubin, Total 0.31 mg/dL (0.2-1.0); CO2 30.5 mmol/L (21.0-32.0); Calcium 9.5 mg/dL (8.5-10.1); Chloride 103 mmol/L (98-107); Estimated GFR 78.49 (mL/min/1.73m2); Ferritin 364 ng/mL (26-388); Glucose 164 mg/dL (74-106); Potassium 3.9 mmol/L (3.5-5.1); Sodium 140 mmol/L (136-145); Total Protein 6.4 g/dL (6.4-8.2)
[2023-11-21 09:53] LABS: LDH 132 U/L (85-227)
[2023-11-21 10:20] LABS: Hemoglobin A1C 7.1 % (<5.7)
== END 2023-11-21 02:17 | disposition home or self-care (01) ==
PROVIDERS: Family Medicine; Internal Medicine Medical Oncology; PCP Family Medicine; Visit Provider Nurse Practitioner Adult Health
DX: C83.38 Diffuse large B-cell lymphoma, lymph nodes of multiple sites (principal); E11.9 Type 2 diabetes mellitus without complications; D50.9 Iron deficiency anemia, unspecified; C85.98 Non-Hodgkin lymphoma, unspecified, lymph nodes of multiple sites
CPT/HCPCS: 36415; 80053; 82728; 83036; 83615; 85025

== ENCOUNTER 2023-12-06 00:42 | Outpatient (CLI) | payer MEDICARE, SELFPAY ==
--- NOTE | 2023-12-06 | DI.US_ITS ---
APPROVED REPORT EXAM: Comprehensive 2D, Doppler, and color-flow Echocardiogram Patient Location: In-Patient [facility] Operator: Gwendolyn Shaffer RDCS (AE) Indications: Pre operative exam, Stem cell transplant candidate, Lymphoma Other Information Study Quality: Adequate Conclusion Normal left ventricular wall thickness and chamber size. Ejection fraction is 55%. Wall motion is n ormal Normal right ventricular size and function Both atria are normal in size Aortic valve is mildly sclerotic and trileaflet without stenosis or regurgitation Mild mitral annular calcification. Trace to mild mitral regurgitation Estimated right ventricular systolic pressure is 31 mmHg Wall motion Left Ventricle The left ventricle is normal size. The left ventricular systolic function is normal. The left ventric ular ejection fraction is within the normal range. GLS is 20.1%. There is normal left ventricular wal l thickness. There is normal LV segmental wall motion. There is no ventricular septal defect visualiz ed. LVEF is 55%. Right Ventricle The right ventricle is normal size. The right ventricular systolic function is normal. Atria The left atrium size is normal. The right atrium size is normal. The interatrial septum is intact wit h no evidence for an atrial septal defect. Aortic Valve The Aortic valve is mildly sclerotic. Aortic valve is trileaflet. There is no aortic valvular stenosi s. No aortic regurgitation is present. Mitral Valve Mild mitral annular calcification. No evidence of mitral valve stenosis. Trace to mild mitral regurgi tation. Tricuspid Valve The tricuspid valve is normal in structure. There is no tricuspid valve stenosis. Trace tricuspid reg urgitation. The RVSP is 31.3 mmHg. Pulmonic Valve The pulmonary valve is normal in structure. There is no pulmonic valvular stenosis. Trace pulmonic re gurgitation. Great Vessels The aortic root is normal in size. The ascending aorta is normal in size. Aortic arch is not well vis ualized. IVC is normal in size and collapses >50% with inspiration. Pericardium There is no pericardial effusion. 2D Dimensions IVSD d PLAX 0.77 cm M: 0.6-1.2 Ao Root d 3.52 cm M: 3.1 - 3.7 LVPW d PLAX 0.78 cm M: 0.6 - 1.2 Ao Asc Diam d 2.93 cm M: 2.6 - 3.4 LVID d PLAX 5.13 cm M: 4.2 - 5.8 LVDs 3.66 cm M: 2.5 - 4.0 LV EF Teichholz 54.8 % FS 28.60 % LV EDV (Teich) 125.4 mL LV ESV (Teich) 56.7 mL M-Mode TAPSE 3.30 cm (M/F) >1.7 Auto EF LV EDV A4C 118.5 mL LV EDV A2C 124.8 mL LV EDV BP 122.6 mL LV ESV A4C 55.5 mL LV ESV A2C 57.7 mL LV ESV BP 57.1 mL LVEF(%) A4C 53.2 % LVEF(%) A2C 53.8 % LVEF(%) BP 53.4 % LV SV A4C 63.0 ml LV SV A2C 67.1 ml LV SV BP 65.5 ml LV CO A4C 3.9 L/min LV CO A2C 4.2 L/min LV CO BP 4.1 L/min HR A4C 61.86 BPM HR A2C 63.27 BPM LV EDV Index (BP) LV Strain Long Pk Overal Avg (s) 20.14 RV Strain Global Peak Long. Strain A4C 21.61 Global Peak Long. Strain A4C FW 25.11 LA Volume LA Length A4C 5.2 cm LA Length A2C 5.2 cm LA Area A4C s 17.43 cm2 LA Area A2C s 19.67 cm2 LA Vol A4C A-L 49.76 mL LA Vol A2C A-L 62.64 mL LA Vol Biplane A-L 56.1 mL LA Vol/BSA A4C A-L LA Vol/BSA A2C A-L LA Vol/BSA BP A-L 28.6 mL/m2 LA Vol A4C MOD 46.3 mL LA Vol A2C MOD 59.1 mL LA Vol BP MOD 52.4 mL RA Volume RA Area A4C 18.2 cm2 RA ESV A4C (A-L) 49.5mL RA Vol/BSA A4C A-L RA Length A4C 5.7 cm RA ESV A4C (MOD) 46.7mL LV Diastology MV E' medial 0.082 (>0.07 m/s) MV E Vmax 0.84 (0.4-1.3 m/s) MV E/E' MED 10.27 (<14) MV A Vmax 0.95 (0.4-1.3 m/s) MV E' lateral 0.108 (>0.1 m/s) E/A Ratio 0.9 MV E/E' LAT 7.80 (<14) MV E' Average 0.095 m/s MV E/E'(average) 8.87 Aortic Valve AoV Vmax 1.43 m/s LVOT Vmax 1.27 m/s AoV Peak Grad 8.2 mmHg LVOT Peak Grad 6.5 mmHg AoV Area (Vmax) 2.72 cm2 LVOT VTI 0.262 m AoV VTI 0.334 m LVOT Mean Grad 3.6 mmHg AoV Mean Jung. 0.99 m/s LVOT SV 80.31 mL AoV Mean Grad 4.5 mmHg LVOT Diam s 1.95 cm AoV Area (VTI) 2.40 cm2 AV Regurg Peak Gr. 8.20 mmHg Velocity Ratio 0.89 Mitral Valve MV DT 256 (160-240 msec) MV Vmax TIPS 0.96 m/s MV Mean Grad 1.8 (<2mmHg) MV VTI 0.404 m Pulmonary Valve PV Vmax 0.76 (0.5-1.5 m/s) RVOT Vmax 0.69 m/s PV Peak Grad 2.3 mmHg RVOT Peak Gr. 1.9 mmHg PV Mean Jung 0.61 m/s RVOT VTI 0.167 m PV Mean Grad 1.6 mmHg RVOT Mean Gr. 1.1 mmHg Tricuspid Valve RA Pressure 3.00 mmHg TR Vmax 2.66 m/s TV S' 0.16 m/s TR Peak Grad 28.3 mmHg RVSP (TR) 31.3 mmHg
== END 2023-12-06 01:02 ==
LOC: DI 00:42
PROVIDERS: PCP Family Medicine; Visit Provider Internal Medicine Hematology & Oncology
DX: Z01.818 Encounter for other preprocedural examination (principal)
CPT/HCPCS: 93306

== ENCOUNTER 2023-12-31 03:20 | Outpatient (CLI) | payer MEDICARE, SELFPAY ==
[2023-12-31 10:54] LABS: Abs Immature Grans 0.02 10^3/uL (0.0-0.06); Absolute Basophil Count 0.06 10^3/uL (0.0-0.2); Absolute Eosinophil Count 0.22 10^3/uL (0.0-0.7); Absolute Lymphocyte Count 0.88 10^3/uL (1.2-3.4); Absolute Monocyte Count 0.79 10^3/uL (0.1-0.8); Absolute Neutrophil Count 4.03 10^3/uL (1.2-6.7); Eosinophils % 3.7 %; HCT 36.1 % (40.0-50.0); HGB 11.7 g/dL (13.5-17.5); Immature Grans % 0.3 %; Lymphocytes % 14.7 %; MCH 30.5 pg (27.0-33.0); MCHC 32.4 % (32.0-36.0); MCV 94 fL (80-95); MPV 9.2 fL (8.0-11.0); Monocytes % 13.2 %; Neutrophils % 67.1 %; Platelet Count 152 10^3/uL (130-400); RBC 3.84 10^6/uL (4.36-5.78); RDW 16.1 % (11.8-14.1); RDW-SD 55.8 fL
[2023-12-31 11:24] LABS: ALT 23 U/L (16-63); AST 18 U/L (15-37); Albumin 3.2 g/dL (3.4-5.0); Alkaline Phosphatase 101 U/L (46-116); BUN 12 mg/dL (7-18); Bilirubin, Total 0.36 mg/dL (0.2-1.0); CREATININE 1.2 mg/dL (0.70-1.30); Chloride 110 mmol/L (98-107); Estimated GFR 63.07 (mL/min/1.73m2); Ferritin 91 ng/mL (26-388); Glucose 147 mg/dL (74-106); LDH 154 U/L (85-227); Potassium 3.8 mmol/L (3.5-5.1); Sodium 146 mmol/L (136-145); Total Protein 6.1 g/dL (6.4-8.2)
== END 2023-12-31 03:21 | disposition home or self-care (01) ==
LOC: LBO 03:20
PROVIDERS: PCP Family Medicine; Visit Provider Nurse Practitioner Adult Health
DX: C85.98 Non-Hodgkin lymphoma, unspecified, lymph nodes of multiple sites (principal); D50.9 Iron deficiency anemia, unspecified
CPT/HCPCS: 36415; 80053; 82728; 83615; 85025